=== PATIENT | male | born 1965 | race Caucasian/White ===

== ENCOUNTER 2022-10-14 09:10 | Outpatient (OUT) | payer MEDICARE, SELFPAY ==
--- NOTE | 2022-10-14 09:42 | P.CN_ITS ---
Consult Note: HPI Data of Consult Patient: known to practice within the last 3 years Consult date: 10/14/22 Requesting Physician: LAURA FAYE NP Primary Care Provider: Ishmael Watts MD Consult Narrative Reason for consult: RFA Narrative: Abhishek is here for f/u of RFA right lumbar area done on 09/14/22. He received 100% relief of pain and has increased fx. He is happy with results. No new sensorimotor or bowel or bladder issues. baclofen rx refill given. He denies adverse medication SE. No other concerns. cc:: CC: LAURA FAYE NP Review of Systems ROS Status of ROS 10 or more systems reviewed and unremarkable except as noted in history and below Musculoskeletal Reports: back pain and extremity pain Meds Home Medications and Allergies Home Medications Medication Instructions Recorded Confirmed Type albuterol 90 mcg/actuation aerosol mcg inhalation .Q6 10/14/22 History inhaler baclofen 10 mg tablet 10 mg PO BID 10/14/22 10/14/22 History fluticasone fur. 100 mcg-umeclid 1 inh inhalation DAILY 10/14/22 10/14/22 H istory 62.5 mcg-vilant 25 mcg inhalat.powder (Trelegy Ellipta) furosemide 40 mg tablet 40 mg PO BID 10/14/22 10/14/22 History gabapentin 300 mg capsule 300 mg PO DAILY 10/14/22 10/14/22 History montelukast 10 mg tablet 10 mg PO DAILY 10/14/22 10/14/22 History nabumetone 500 mg tablet 500 mg PO BID 10/14/22 10/14/22 History omeprazole 40 mg capsule,delayed 40 mg PO DAILY 10/14/22 10/14/22 History release oxycodone-acetaminophen 7.5 mg-325 1 tab PO Q6H 10/14/22 10/14/22 History mg tablet spironolactone 100 mg tablet 100 mg PO DAILY 10/14/22 10/14/22 History Allergies Allergy/AdvReac Type Severity Reaction Status Date / Time No Known Drug Allergies Allergy Verified 10/14/22 09:41 Exam Constitutional Documenting provider has reviewed patient's vital signs: yes Common normals: no apparent distress, average body habitus, oriented x3, healthy appearing and well nourished General appearance: cooperative, comfortable, well developed and well hydrated Orientation/consciousness: Yes awake, Yes oriented to person, Yes oriented to place and Yes oriented to time HENMT Common normals: normocephalic, external nose normal and moist oral mucous membranes Head and scalp: normal to inspection Respiratory Common normals: normal respiratory effort, no retractions and no use of accessory muscles Effort & inspection: able to speak in complete sentences Back & Pelvis Common normals: thoracic and lumbar spine normal to inspection and straight leg raise negative bilaterally Lumbar spine/lower back: ROM limited, paraspinal muscle spasm and straight leg raise negative bilaterally Extremity Common normals: normal to inspection, full ROM and normal capillary refill Other: muscle strength 5/5 bilat LE with intact sensation Assessment and Plan Assessment and Plan (1) Lumbar spondylosis: Plan baclofen refill, no other meds prescribed by us f/u in 6 months or sooner if needed
== END 2022-10-14 09:11 ==
PROVIDERS: PCP Family Medicine; Visit Provider Nurse Practitioner
DX: M47.816 Spondylosis without myelopathy or radiculopathy, lumbar region (principal)
CPT/HCPCS: G0463

== ENCOUNTER 2022-10-14 10:01 | Outpatient (OUT) | payer MEDICARE, SELFPAY ==
[2022-10-14 10:53] LABS: Estimated Average Glucose 114 mg/dL; Glycohemoglobin A1C 5.6 % (4.5-6.2)
== END 2022-10-14 10:02 ==
LOC: LAB 10:04
PROVIDERS: PCP Family Medicine
DX: E11.65 Type 2 diabetes mellitus with hyperglycemia (principal)
CPT/HCPCS: 36415; 83036

== ENCOUNTER 2023-05-04 13:45 | Outpatient (OUT) | payer MEDICARE, SELFPAY ==
--- NOTE | 2023-05-04 14:10 | P.CN_ITS ---
Consult Note: HPI Data of Consult Patient: known to practice within the last 3 years Consult date: 10/14/22 Requesting Physician: Danielle Bergeron NP Primary Care Provider: Ishmael Watts MD Consult Narrative Reason for consult: f/u Narrative: Abhishek is here for f/u of RFA right lumbar area done on 09/14/22. He is happy with results. No new sensorimotor or bowel or bladder issues. baclofen rx refill given. He denies adverse medication SE. No other concerns. He continues to have greater than 80% ONGOING RELIEF. cc:: CC: Danielle Bergeron NP Review of Systems ROS Status of ROS 10 or more systems reviewed and unremark able except as noted in history and below Meds Home Medications and Allergies Home Medications Medication Instructions Recorded Confirmed Type albuterol 90 mcg/actuation aerosol mcg inhalation .Q6 10/14/22 History inhaler baclofen 10 mg tablet 10 mg PO BID 10/14/22 10/14/22 History fluticasone fur. 100 mcg-umeclid 1 inh inhalation DAILY 10/14/22 10/14/22 History 62.5 mcg-vilant 25 mcg inhalat.powder (Trelegy Ellipta) furosemide 40 mg tablet 40 mg PO BID 10/14/22 10/14/22 History gabapentin 300 mg capsule 300 mg PO DAILY 10/14/22 10/14/22 History montelukast 10 mg tablet 10 mg PO DAILY 10/14/22 10/14/22 History nabumetone 500 mg tablet 500 mg PO BID 10/14/22 10/14/22 History omeprazole 40 mg capsule,delayed 40 mg PO DAILY 10/14/22 10/14/22 History release oxycodone-acetaminophen 7.5 mg-325 1 tab PO Q6H 10/14/22 10/14/22 History mg tablet spironolactone 100 mg tablet 100 mg PO DAILY 10/14/22 10/14/22 History Allergies Allergy/AdvReac Type Severity Reaction Status Date / Time No Known Drug Allergies Allergy Verified 10/14/22 09:41 Exam Constitutional Documenting provider has reviewed patient's vital signs: yes Common normals: no apparent distress, average body habitus, oriented x3, healthy appearing and well nourished General appearance: cooperative, comfortable, well developed and well hydrated Orientation/consciousness: Yes awake, Yes oriented to person, Yes oriented to place and Yes oriented to time HENMT Common normals: normocephalic, external nose normal and moist oral mucous membranes Head and scalp: normal to inspection Respiratory Common normals: normal respiratory effort, no retractions and no use of accessory muscles Effort & inspection: able to speak in complete sentences Back & Pelvis Common normals: thoracic and lumbar spine normal to inspection and straight leg raise negative bilaterally Lumbar spine/lower back: ROM limited, paraspinal muscle spasm and straight leg raise negative bilaterally Extremity Common normals: normal to inspection, full ROM and normal capillary refill Other: muscle strength 5/5 bilat LE with intact sensation Assessment and Plan Assessment and Plan (1) Lumbar spondylosis: (2) Myofascial pain: Plan continue baclofen 10mg BID repeat right L1,2 L3,4 thermal RFA in the future as needed f/u 6 months, sooner if needed
== END 2023-05-04 13:46 | disposition home or self-care (01) ==
LOC: PM 05-05 12:01
PROVIDERS: PCP Family Medicine; Visit Provider Nurse Practitioner
DX: M47.816 Spondylosis without myelopathy or radiculopathy, lumbar region (principal); M79.18 Myalgia, other site
CPT/HCPCS: G0463

== ENCOUNTER 2023-05-26 12:00 | Outpatient (OUT) | payer MEDICARE, SELFPAY ==
--- OUTSIDE RECORDS SUMMARY | 2023-05-25 09:09 | XMS_ITS | CCD ---
Author Name Unknown Address [address] [facility] [address] [place] [address] Organization [facility] Care Team Providers Care Receiver Dispatcher Name Role Phone SIMONE RUIZ Admitting Unavailable SIMONE RUIZ Attending Unavailable ISHMAEL SIMON Referring Unavailable ISHMAEL SIMON Primary Care Unavailable JEY ELISE Attending Unavailable JEY ELISE Surgeon Unavailable MD Procedure Practitioner Unavailab ISHMAEL Campoverde Primary Care Unavailable ISHMAEL SIMON Referring Unavailable JEY ELISE Admitting Unavailable JEY ELISE Attending Unavailable ISHMAEL SIMON Primary Care Unavailable ISHMAEL SIMON Referring Unavailable JEY ELISE R Admitting Unavailable Ishmael Simon Unavailable Unavailable Unavailable Carissa, Dr. Armstrong Attending Unavaila ble Carissa, Dr. Armstrong Referring Unavaila ble Alfred, Dr. Ishmael Vallejo Primary [facility] Anupamavachavez labjayla Frerer, Dr. Armstrong Attending Unavaila loulou Ferrer, Dr. Armstrong Referring Unavaila ble Alfred, Dr. Ishmael Vallejo Primary Care Anupamavai labjayla Simon, Dr. Ishmael Vallejo Primary Care Anupamavai labjayla Simon, Dr. Ishmael Vallejo Referring Unavai lable Carissa, Dr. Armstrong Attending Unavaila loulou SIMON, DR ISHMAEL Rae Primary Care Unavailable IBARRA ., DR RICKY Bateman Attending Unavailable IBARRA ., DR RICKY Bateman Consulting Unavailable IBARRA ., DR RICKY Bateman Admitting Unavailable LAKSHMIPATHY ., NARENDADRIENNEATH Admitting Anupama vailable LAKSHMIPATHY ., WILDER Attending Anupama vailable LAKSHMIPATHY ., NARSUAD Consulting Anupama vailable ALFRED, DR ISHMAEL Rae Primary Care Unavailable IBARRA ., DR RICKY Bateman Admitting Unavailable IBARRA ., DR RICKY Bateman Attending Unavailable COLMENARES ., TERESO Consulting Unavailable NADERER, DR ISHMAEL Rae Primary Care Unavailable NADERER, DR ISHMAEL Rae Primary Care Unavailable NADERER, DR ISHMAEL Rae Attending Unavailable NADERER, DR ISHMAEL Rae Consulting Unavailable NADERER, DR ISHMAEL Rae Admitting Unavailable NADERER, DR ISHMAEL Rae Primary Care Unavailable IBARRA ., DR RICKY Bateman Attending Unavailable IBARRA ., DR RICKY Bateman Consulting Unavailable IBARRA ., DR RICKY Bateman Admitting Unavailable LAKSHMIPATHY ., NARENDSOSA Attending Anupama vailable LAKSHMIPATHY ., NARENDSOSA Consulting Anupama vailable NADJANEE, DR ISHMAEL Rae Primary Care Unavailable LAKSHMIPATHY ., NARENDSOSA Admitting Anupama vailable IBARRA ., DR RICKY Bateman Consulting Unavailable IBARRA ., DR RICKY Bateman Admitting Unavailable IBARRA ., DR RICKY Bateman Attending Unavailable NADERER, DR ISHMAEL Rae Primary Care Unavailable NASRA, HOANG Consulting Unavailable IBARRA ., DR RICKY Bateman Consulting Unavailable IBARRA ., DR RICKY Bateman Admitting Unavailable IBARRA ., DR RICKY Bateman Attending Unavailable NADERER, DR ISHMAEL Rae Primary Care Unavailable NASRA, HOANG Consulting Unavailable COLMENARES ., TERESO Consulting Unavailable IBARRA ., DR RICKY Bateman Admitting Unavailable IBARRA ., DR RICKY Bateman Attending Unavailable NADERER, DR ISHMAEL Rae Primary Care Unavailable IBARRA ., DR RICKY Bateman Consulting Unavailable IBARRA ., DR RICKY Bateman Admitting Unavailable IBARRA ., DR RICKY Bateman Attending Unavailable NADERER, DR ISHMAEL Rae Primary Care Unavailable LAKSHMIPATHY ., NARENDRANATH Admitting Anupama vailable LAKSHMIPATHY ., NARENDRANATH Attending Anupama vailable JOSE CRUZ LEE Consulting Unavailable NADERER, DR ISHMAEL Rae Primary Care Unavailable LAKSHMIPATHY ., NARENDRANLIZ Consulting Anupama vailable LAKSHMIPATHY ., NARENDRANATH Admitting Anupama vailable LAKSHMIPATHY ., NARENDRANATH Attending Anupama vailable LAKSHMIPATHY ., NARENDSOSA Consulting Anupama vailable ALFRED, DR ISHMAEL Rae Primary Care Unavailable COLMENARES ., TERESO Consulting Unavailable IBARRA ., DR RICKY Bateman Attending Unavailable IBARRA ., DR RICKY Bateman Admitting Unavailable NADERER, DR ISHMAEL Rae Primary Care Unavailable LAKSHMIPATHY ., NARENDSOSA Admitting Anupama vailable LAKSHMIPATHY ., NARSUAD Attending Anupama vailable LAKSHMIPATHY ., WILDER Consulting Anupama vailable NADJANEE, DR ISHMAEL Rae Primary Care Unavailable IBARRA ., DR RICKY Bateman Attending Unavailable IBARRA ., DR RICKY Bateman Admitting Unavailable NADERER, DR ISHMAEL Rae Primary Care Unavailable NADERER, DR ISHMAEL Rae Attending Unavailable NADERER, DR ISHMAEL Rae Consulting Unavailable NADERER, DR ISHMAEL Rae Primary Care Unavailable NADERER, DR ISHMAEL Rae Admitting Unavailable NADERER, DR ISHMAEL Rae Primary Care Unavailable COLMENARES ., TERESO Consulting Unavailable IBARRA ., DR RICKY Bateman Attending Unavailable IBARRA ., DR RICKY Bateman Admitting Unavailable SAMSA ., AMINA Attending Unavailable WEST, DR BATSHEVA Huertas Consulting Unavailable NADERER, DR ISHMAEL Rae Primary Care Unavailable SAMSA ., AMINA Admitting Unavailable SAMSA ., AMINA Consulting Unavailable COLMENARES ., TERESO Admitting Unavailable COLMENARES ., TERESO Attending Unavailable ZIEBTIRSO, DR FLEX Hunt Consulting Unavailable NADERER, DR ISHMAEL Rae Primary Care Unavailable COLMENARES ., TERESO Consulting Unavailable IBARRA ., DR RICKY Bateman Consulting Unavailable IBARRA ., DR RICKY Bateman Admitting Unavailable IBARRA ., DR RICKY Bateman Attending Unavailable NADERER, DR ISHMAEL Rae Primary Care Unavailable NADERER, DR ISHMAEL Rae Primary Care Unavailable PAY ., DR MCINTOSH Admitting Unavailable PAY ., DR MCINTOSH Attending Unavailable PAY ., DR MCINTOSH Consulting Unavailable LAKSHMIPATHY ., WILDER Admitting Anupama vailable LAKSHMIPATHY ., WILDER Attending Anupama vailable NADJANEE, DR ISHMAEL Rae Primary Care Unavailable NADERER, DR ISHMAEL Rae Attending Unavailable NADERER, DR ISHMAEL Rae Admitting Unavailable NADERER, DR ISHMAEL Rae Primary Care Unavailable ARLENE, DR FLEX Hunt Consulting Unavailable NADERER, DR ISHMAEL Rae Consulting Unavailable COLMENARES ., TERESO Consulting Unavailable IBARRA ., DR RICKY Bateman Admitting Unavailable IBARRA ., DR RICKY Bateman Attending Unavailable NADERER, DR ISHMAEL Rae Primary Care Unavailable NADERER, ISHMAEL Parmar Unavailable Medications Completed/Discontinued Medications Medication Drug Class(es) Dates Sig (Normalized) Sig (Original) acetaminophen 325 mg / oxyCODONE hydrochloride 7.5 mg oral tablet (5 sources) Opioid Agonist Start: 03-30-2021 take 1 tablet by mouth four times daily as needed oxyCODONE-Acetamin ophen 7.5-325 MG Oral Tablet TAKE 1 TABLET BY MOUTH FOUR TIMES A DAY NEEDED Quantity: 120 Refills: 0 Ordered: 01-Apr-2021 DO Start : 30-Mar-2021 Active cetirizine hydrochloride 10 mg oral tablet (5 sources) Histamine-1 Receptor Antagonist take 1 tablet by mouth at bedtime Cetirizine HCl - 10 MG Oral Tablet TAKE 1 TABLET AT BEDTIME. Quantity: 0 Refills: 0 Ordered: 28-Jan-2022 DO Active cholecalciferol 0.05 mg oral capsule (4 sources) Vitamin D take 1 capsule by mouth once daily Vitamin D 50 MCG (1999 UT) Oral Capsule TAKE 1 CAPSULE Daily Quantity: 90 Refills: 0 Ordered: 28-Jan-2022 DO Active Dupixent SOPN (1 source) Dupixent SOPN US E DIRECTED Quantity: 0 Refills: 0 Ordered: 14-Jul-2022 DO Active 30 actuat fluticasone furoate 0.1 mg/actuat / umeclidinium 0.0625 mg/actuat / vilanterol 0.025 mg/actuat dry powder inhaler (5 sources) Anticholinergic, Corticosteroid, beta2-Adrenergic Agonist Trelegy Ellipta 100-62.5-25 MCG/INH AEPB USE DIRECTED Quantity: 0 Refills: 0 Ordered: 28-Jan-2022 DO Active furosemide 40 mg oral tablet (5 sources) Loop Diuretic take 1 tablet by mouth twice daily Furosemide 40 MG Oral Tablet Take 1 tablet twice daily Quantity: 180 Refills: 0 Ordered: 28-Jan-2022 DO Active gabapentin 300 mg oral capsule (5 sources) Anti-epileptic Agent take 1 capsule by mouth once daily Gabapentin 300 MG Oral Capsule TAKE 1 CAPSULE Daily Quantity: 0 Refills: 0 Ordered: 28-Jan-2022 DO Active montelukast 10 mg oral tablet (5 sources) Leukotriene Receptor Antagonist take 1 tablet by mouth at bedtime Singulair 10 MG Oral Tablet TAKE 1 TABLET AT BEDTIME. Quantity: 0 Refills: 0 Ordered: 28-Jan-2022 DO Active nabumetone 500 mg oral tablet (5 sources) Nonsteroidal Anti-inflammatory Drug take 1 tablet by mouth once daily Nabumetone 500 MG Oral Tablet TAKE 1 TABLET EVERY 12 HOURS DAILY. Quantity: 0 Refills: 0 Ordered: 28-Jan-2022 DO Active omeprazole 40 mg delayed release oral capsule (5 sources) Proton Pump Inhibitor take 1 capsule by mouth once daily Omeprazole 40 MG Oral Capsule Delayed Release TAKE 1 CAPSULE Daily Quantity: 30 Refills: 0 Ordered: 28-Jan-2022 DO Active Oxygen (5 sources) Oxygen 2l at bedtime Quantity: 0 Refills: 0 Ordered: 28-Jan-2022 DO Active spironolactone 100 mg oral tablet (5 sources) Aldosterone Antagonist take 1 tablet by mouth once daily at breakfast Aldactone 100 MG Oral Tablet TAKE 1 TABLET DAILY WITH BREAKFAST. Quantity: 0 Refills: 0 Ordered: 28-Jan-2022 DO Active triamcinolone acetonide 1 mg/ml topical cream (4 sources) Corticosteroid Triamcinolone Acetonide 0.1 % External Cream USE DIRECTED. Quantity: 0 Refills: 0 Ordered: 28-Jan-2022 DO Active Ventolin HFA AERS (5 sources) Ventolin HFA AER S USE DIRECTED Quantity: 0 Refills: 0 Ordered: 28-Jan-2022 DO Active Problems Active Problems Problem Classification Problem Date Documented Date Episodic/Chronic Abdominal pain (8 sources) Unspecified abdominal pain; Translations: [Right lower quadrant pain] Onset: 06-11-2022 Episodic Chronic obstructive pulmonary disease and bronchiectasis (5 sources) Chronic obstructive lung disease; Translations: [Chronic airway obstruction, not elsewhere classified] Chronic Diabetes mellitus with complications (1 source) Type 2 diabetes mellitus with hyperglycemia; Translations: [TYPE 2 DM W/HYPERGLYCEMIA] Onset: 05-13-2022 Chronic Disorders of lipid metabolism (1 source) Hyperlipidemia, unspecified; Translations: [HYPERLIPIDEMIA UNSPECIFIED] Onset: 05-13-2022 Chronic Essential hypertension (1 source) Essential (primary) hypertension; Translations: [ESSENTIAL PRIMARY HYPERTENSION] Onset: 05-13-2022 Chronic Nutritional deficiencies (4 sources) Vitamin D deficiency, unspecified; Translations: [VITAMIN D DEFICIENCY UNSPECIFIED] Onset: 05-07-2022 Chronic Other connective tissue disease (4 sources) Neuralgia and neuritis, unspecified; Translations: [NEURALGIA AND NEURITIS UNSPECIFIED] Onset: 07-23-2022 Episodic Other hereditary and degenerative nervous system conditions (1 source) Dystonia, unspecified; Translations: [DYSTONIA UNSPECIFIED] Onset: 07-30-2022 Chronic Other lower respiratory disease (5 sources) Dyspnea; Translations: [Other respiratory abnormalities] Episodic Other lower respiratory disease (1 source) Dyspnea, unspecified; Translations: [Dyspnea, unspecified] Onset: 02-15-2022 Episodic Other nervous system disorders (4 sources) Other specified mononeuropathies; Translations: [OTHER SPECIFIED MONONEUROPATHIES] Onset: 07-20-2022 Chronic Other nervous system disorders (1 source) Other chronic pain; Translations: [OTHER CHRONIC PAIN] Onset: 01-22-2022 Chronic Other nutritional; endocrine; and metabolic disorders (5 sources) Obesity; Translations: [Obesity, unspecified] Chronic Other nutritional; endocrine; and metabolic disorders (1 source) Obesity, unspecified; Translations: [OBESITY UNSPECIFIED] Onset: 05-13-2022 Chronic Other screening for suspected conditions (not mental disorders or infectious disease) (8 sources) Cardiovascular stress test abnormal; Translations: [Other nonspecific abnormal results of function study of cardiovascular system] Onset: 02-15-2022 Episodic Spondylosis; intervertebral disc disorders; other back problems (10 sources) Spondylosis without myelopathy or radiculopathy, lumbar region; Translations: [Other intervertebral disc degeneration, lumbar region] Onset: 10-02-2021 Chronic Substance-related disorders (9 sources) Smoker; Translations: [Tobacco use disorder] Onset: 07-15-2022 Chronic Comment on above: 1 pack daily; Unclassified (1 source) LOW BACK PAIN, UNSPECIFIED; Translations: [LOW BACK PAIN, UNSPECIFIED] Onset: 05-13-2022 Unclassified (3 sources) CONTACT W/AND (SUSP) EXPOS COVID-19; Translations: [CONTACT W/AND (SUSP) EXPOS COVID-19] Onset: 12-14-2021 Viral infection (1 source) COVID-19; Translations: [COVID-19] Onset: 04-14-2022 Past or Other Problems Problem Classification Problem Date Documented Da te Episodic/Chronic Cardiac dysrhythmias (10 sources) Sinus bradycardia; Translations: [Other specified cardiac dysrhythmias] Onset: 01-01-2022 Episodic Other aftercare (1 source) Other jail (current) drug therapy; Translations: [OTH SKILLED NURSING CURRENT DRUG THERAPY] Onset: 05-13-2022 Episodic Other connective tissue disease (1 source) Other muscle spasm; Translations: [OTHER MUSCLE SPASM] Onset: 05-13-2022 Episodic Other lower respiratory disease (4 sources) Pleurodynia; Translations: [PLEURODYNIA] Onset: 10-01-2021 Episodic Spondylosis; intervertebral disc disorders; other back problems (3 sources) Muscle spasm of back; Translations: [Intervertebral disc disorders with radiculopathy, lumbar region] Onset: 10-26-2021 Episodic Unclassified (1 source) CONTACT W/AND (SUSP) EXPOS COVID-19; Translations: [CONTACT W/AND (SUSP) EXPOS COVID-19] Onset: 04-12-2022 Results Test Name Value Interpretation Reference Range Facility CT LUNG CANCER SCREENINGon 0 07-15-2022 CT LUNG CANCER SCREENING EXAMINATION: CT LUNG CANCER SCREENING HISTORY: Screening for malignant neoplasm of respiratory tract COMPARISON: 05/01/2021 TECHNIQUE: Axial, Coronal, and Sagittal images were created without the administration of IV contrast material. Dose reduction techniques were achieved by using automated exposure control and/or adjustment of mA and/or kV according to patient size and/or use of iterative reconstruction technique. FINDINGS: LUNGS: Stable scattered solid noncalcified pulmonary nodules measuring up to 7.6 mm the left lower lobe, axial image 97. No new significant pulmonary nodule or mass is identified. Calcified tracheobronchial tree. PLEURA: No mass, effusion, or pneumothorax. VASCULATURE: No abnormality. STEPHANIE: No mass or pathologic adenopathy. MEDIASTINUM: No mass or pathologic adenopathy. CARDIAC: No enlargement, pericardial thickening, or significant calcification. AORTA: No aneurysm or dissection. CHEST WALL: No mass or axillary adenopathy BONES: Multiple remote left posterior rib fractures LIMITED ABDOMEN: No suspicious findings. Limited images of the upper abdomen. OTHER: Negative. IMPRESSION: LUNG SCREENING: Lung-RADS Category 2- Benign Appearance or Behavior. Nodules with a very low likelihood of becoming a clinically active cancer due to size or lack of growth. 2. Continue annual screening with LDCT in 12 months. Electronically authenticated by: BATSHEVA ALVARADO Date: 2022-07-15 12:10 Normal [facility] Office Visit (Cardiology)on 07-14-2022 Follow-up visit Diagnoses/Problems Assessed Sinus bradycardia (427.89) (R00.1) Dyspnea (786.09) (R06.00) Current smoker (305.1) (F17.200) 1 pack daily COPD (chronic obstructive pulmonary disease) (496) (J44.9) Abnormal stress test (794.39) (R94.39) Class 1 obesity with body mass index (BMI) of 32.0 to 32.9 in adult (278.00,V85.32) (E66.9,Z68.32) Orders Class 1 obesity with body mass index (BMI) of 30.0 to 30.9 in adult, Class 1 obesity with body mass index (BMI) of 32.0 to 32.9 in adult Healthy Weight Tips; Status:Complete - Retrospective Authorization; Done: 14Jul2022 Some eating tips that can help you lose weight.; Status:Complete - Retrospective Authorization; Done: 14Jul2022 Sinus bradycardia IO EKG Electrocardiogram- 12 Lead; Status:Complete; Done: 14Jul2022 SocHx: Current smoker Tobacco Use Screening; Status:Complete; Done: 14Jul2022 You need to stop smoking. Though it is not easy, more than half of all adult smokers have quit. We encourage you to write down all the reasons you should quit smoking and set a quit date for yourself. Ask us how we can help. You may also call 3-378-XGEONOW for free resources and assistance.; Status:Complete - Retrospective Authorization; Done: 14Jul2022 Patient Instructions Please bring all medicines, vitamins, and herbal supplements with you when you come to the office. Prescriptions will not be filled unless you are compliant with your follow up appointments or have a follow up appointment scheduled as per instruction of your physician. Refills should be requested at the time of your visit.. Follow up in 1 year. with ekg REtrieve heart cath Chief Complaint LILIANA MICHAELS is being seen for a month follow-up of. History of Present Illness Patient is here for follow-up continue management for recent evaluation for resting asymptomatic sinus bradycardia, hypertension and tobacco use. The patient was referred for a stress test. He was able to walk for more than 7 minutes. He achieved almost 77% of max predicted heart rate. He indicated to me he could have gone longer but his back and right leg was bothering him. Since last time I saw him he denies any cardiac complaint he feels well. Assessment 1. Resting sinus bradycardia his recent stress test showed good exercise tolerance and ability to achieve close to 77% of maximum predicted heart rate. He is completely asymptomatic 2. Recently observed borderline stress test which led to an ischemic evaluation. He underwent cardiac catheterization in [place] which showed no significant obstructive disease 3. Hypertension 4. Tobacco use and COPD 5. Recent accident led to surgery in his right leg/thigh with pain control procedure details lacking. Plan 1. With the patient the results of his recent diagnostic testing and I recommended continue with observant approach 2. Patient was counseled regarding smoking cessation 3. We will try to retrieve his cardiac catheterization 4. I recommended aggressive approach risk factor modification 5. Follow-up in 1 year with an EKG or earlier if the need arise Surgical History Problems History of Arm surgery History of Colonoscopy History of Cyst excision History of Hernia repair History of Hip replacement History of Urologic surgery Current Meds Medication NameInstruction Aldactone 100 MG Oral TabletTAKE 1 TABLET DAILY WITH BREAKFAST. Cetirizine HCl - 10 MG Oral TabletTAKE 1 TABLET AT BEDTIME. Dupixent SOPNUSE DIRECTED Furosemide 40 MG Oral TabletTake 1 tablet twice daily Gabapentin 300 MG Oral CapsuleTAKE 1 CAPSULE Daily Nabumetone 500 MG Oral TabletTAKE 1 TABLET EVERY 12 HOURS DAILY. Omeprazole 40 MG Oral Capsule Delayed ReleaseTAKE 1 CAPSULE Daily oxyCODONE-Acetaminoph en 7.5-325 MG Oral TabletTAKE 1 TABLET BY MOUTH FOUR TIMES A DAY NEEDED Pqdtgl2s at bedtime Singulair 10 MG Oral TabletTAKE 1 TABLET AT BEDTIME. Trelegy Ellipta 100-62.5-25 MCG/INH AEPBUSE DIRECTED Ventolin HFA AERSUSE DIRECTED Patient did not bring medication list or bottles. Updated verbally with patient Allergies Medication No Known Drug Allergies Recorded By: Janina Cortez; 01/28/2022 9:32:54 AM Social History Problems Current smoker (305.1) (F17.200) 1 pack daily No alcohol use No caffeine use No illicit drug use Review of Systems Constitutional: not feeling tired. Cardiovascular: no intermittent leg claudication and as noted in HPI. Respiratory: shortness of breath, but no cough. Gastrointestinal: no change in bowel habits and no blood in stools. Integumentary: no skin rashes. Neurological: no seizures and no frequent falls. All other systems have been reviewed and are negative for complaint. Vitals Vital Signs Recorded: [id number] 10:57AM Heart Rate34, L Radial [id number], LUE, Sitting Umewqiala97, LUE, Sitting Height5 ft 4 in [id number] lb BMI Eftirvyflp48.96 kg/m2 BSA Calculated1.92 Tobacco Usea) Yes Patient encouraged to st (more content not included)... Normal [facility] Tobacco Screening.on 023 Adult depression screening assessment No [facility] [employer] DO Work Phone: Fall risk assessment a) No falls within the last year [facility] [employer] DO Work Phone: Tobacco use status [facility] a) Yes [facility] [employer] [address] DO Work Phone: Tobacco Screening. Yes [facility] [employer] DO Work Phone: CT ABD/PELV W CONon 06-11-19 CT ABD/PELV W CON EXAMINATION: CT ABD/PELV W CON HISTORY: Right lower quadrant pain ; right groin pain for several weeks; history of right inguinal hernia COMPARISON: CT abdomen pelvis 05/30/2020 TECHNIQUE: Axial, Coronal, and Sagittal images were obtained without and/or with IV contrast as indicated by examination type. Dose reduction techniques were achieved by using automated exposure control and/or adjustment of mA and/or kV according to patient size and/or use of iterative reconstruction technique. FINDINGS: LUNG BASES: No visible pulmonary or pleural disease. LIVER: No enlargement, atrophy, suspicious density, or significant focal lesion. BILIARY: No dilatation or calcification. PANCREAS: No lesion, fluid collection, or abnormal duct dilatation. SPLEEN: No enlargement or focal lesion. ADRENALS: No mass or enlargement. KIDNEYS: Stable, benign-appearing left renal cyst. No mass, obstruction, or calcification. BOWEL/MESENTERY: Short segment of small bowel-small bowel intussusception within lateral left mid abdomen; usually transitory. No inflammatory changes or bowel obstruction. No visible mass, obstruction, or bowel wall thickening. Normal appendix. AORTA/VASCULAR: No aneurysm or dissection. RETROPERITONEUM: No mass or adenopathy. LYMPH NODES: No adenopathy. URINARY BLADDER: No visible focal wall thickening, lesion, or calculus. PELVIC ORGANS: Prior radioactive seeding of the prostate. ABDOMINAL WALL: Small fat filled umbilical hernia without strangulation. Small fat filled left inguinal hernia without strangulation. BONES: Multilevel marked degenerative disc disease of lumbar spine. OTHER: Negative. IMPRESSION: 1.No acute or specific findings to account for patient's right lower quadrant/groin symptoms. 2.Chronic changes as detailed above. Electronically authenticated by: FLEX JACOBS Date: 2022-06-11 10:06 Normal [facility] CBC AUTO DIFFon 05-07-2022 BASO # 0.1 103/ul Normal 0.0-0.1 [facility] Comment on above: Performed By: #### C BC #### [facility] [address] [address] [address] Britt Mendoza Basophils/100 WBC (Bld) 1.6 % Normal 0.2-2.0 [facility] Comment on above: Performed By: #### C BC #### [facility] [address] [address] [address] Britt Mendoza EO # 0.2 103/ul Normal 0.0-0.7 [facility] Comment on above: Performed By: #### C BC #### [facility] [address] [address] [address] Britt Mendoza Eosinophils/100 WBC (Bld) 3.0 % Normal 0.9-7.0 [facility] Comment on above: Performed By: #### C BC #### [facility] [address] [address] [address] Britt Mendoza Erythrocyte distribution width (RBC) [Ratio] 12.4 % Normal 11.0-15.0 [facility] Comment on above: Performed By: #### C BC #### [facility] [address] [address] [address] Britt Mendoza Hematocrit (Bld) [Volume fraction] 43.2 % Normal 42.0-54.0 [facility] Comment on above: Performed By: #### C BC #### [facility] [address] [address] [address] Britt Mendoza Hemoglobin (Bld) [Mass/Vol] 14.7 g/dL Normal 14.0-18.0 [facility] Comment on above: Performed By: #### C BC #### [facility] [address] [address] [address] Britt Mendoza IG # 0.11 10e3/ul Critically high 0.00-0.03 [facility] Comment on above: Performed By: #### C BC #### [facility] [address] [address] [address] Britt Mendoza IG % 1.4 % Critically high 0.0-0.5 [facility] Comment on above: Performed By: #### C BC #### [facility] [address] [place] [address] Dr. Britt Mendoza LYMPH # 1.7 103/ul Normal 1.2-3.8 [facility] Comment on above: Performed By: #### C BC #### [facility] Laboratory [address] [place] [address] Dr. Britt Mendoza Lymphocytes/100 WBC (Bld) 21.6 % Normal 20.5-60.0 [facility] Comment on above: Performed By: #### C BC #### [facility] Laboratory [address] [place] [address] Dr. Britt Mendoza MANUAL DIFF REQ NO Normal [facility] Comment on above: Performed By: #### C BC #### [facility] Laboratory [address] [place] [address] Dr. Britt Mendoza MCH (RBC) [Entitic mass] 31.2 pg Normal 25.9-34.0 [facility] Comment on above: Performed By: #### C BC #### [facility] Laboratory [address] [place] [address] Dr. Britt Mendoza MCHC (RBC) [Mass/Vol] 34.0 g/dL Normal 29.9-35.2 [facility] Comment on above: Performed By: #### C BC #### [facility] Laboratory [address] [place] [address] Dr. Britt Mendoza MCV (RBC) [Entitic vol] 91.7 fL Normal 80.0-94.0 [facility] Comment on above: Performed By: #### C BC #### [facility] Laboratory [address] [address] [address] Britt Mendoza MONO # 0.5 103/ul Normal 0.3-0.8 [facility] Comment on above: Performed By: #### C BC #### [facility] Laboratory [address] [address] [address] Britt Mendoza Monocytes/100 WBC (Bld) 6.8 % Normal 1.7-12.0 [facility] Comment on above: Performed By: #### C BC #### [facility] Laboratory [address] [place] [address] Dr. Britt Mendoza NEUT # 5.0 103/ul Normal 1.4-6.5 [facility] Comment on above: Performed By: #### C BC #### [facility] Laboratory [address] [place] [address] Dr. Britt Mendoza Neutrophils/100 WBC (Bld) 65.6 % Normal 43.0-75.0 [facility] Comment on above: Performed By: #### C BC #### [facility] Laboratory [address] [place] [address] Dr. Britt Mendoza Platelet mean volume (Bld) [Entitic vol] 9.7 fL Normal 9.5-13.5 [facility] Comment on above: Performed By: #### C BC #### [facility] Laboratory [address] [place] [address] Dr. Britt Mendoza PLT 244 103/ul Normal 150-450 [facility] Comment on above: Performed By: #### C BC #### [facility] Laboratory [address] [place] [address] Dr. Britt Mendoza RBC 4.71 106/ul Normal 4.70-6.10 [facility] Comment on above: Performed By: #### C BC #### [facility] Laboratory [address] [place] [address] Dr. Britt Mendoza WBC 7.6 103/ul Normal 4.0-11.0 [facility] Comment on above: Performed By: #### C BC #### [facility] Laboratory [address] [place], [place] [address] Dr. Britt Mendoza GLYCOHEMOGLOBIN A1Con 2021 ADA RECOMMENDATION SEE BELOW Normal [facility] Comment on above: Result Comment: ADA RECOMMENDED LIMIT 4.0 - 6.0 ADA THERAPEUTIC TARGET < 7.0 ACTION SUGGESTED > 7.0 Performed By: #### A 1C ####[facility] [address] [id number]. Britt Mendoza Glucose [Mass/Vol] 117 mg/dL Normal [facility] Comment on above: Performed By: #### A 1C ####[facility] [address] [id number] Mendoza HbA1c (Bld) [Mass fraction] 5.7 % Normal 4.5-6.2 [facility] Comment on above: Performed By: #### A 1C ####[facility] [address] [address]DrAtiya Mendoza LIPID PROFILEon 05-07-2022 CHOL-HDL RATIO NORM SEE BELOW Normal [facility] Comment on above: Result Comment: 3.3 - 4.4 LOW RISK 4.4 - 7.1 AVERAGE RISK 7.1 - 11.0 MODERATE RISK >11.0 HIGH RISK Performed By: #### B MP, LIVER, LIPID, TSH ####[facility] [address] [id number]. Britt Mendoza Cholesterol [Mass/Vol] 235 mg/dL Critically high <=200 [facility] Comment on above: Performed By: #### B MP, LIVER, LIPID, TSH ####[facility] [address] [id number]. Britt Mendoza Cholesterol in HDL [Mass/Vol] 40 mg/dL Normal 40-60 [facility] Comment on above: Performed By: #### B MP, LIVER, LIPID, TSH ####[facility] [address] [id number]. Britt Mendoza Cholesterol in LDL [Mass/Vol] 156.8 mg/dL Normal [facility] Comment on above: Performed By: #### B MP, LIVER, LIPID, TSH ####[facility] [address] [id number]. Britt Mendoza Cholesterol.total/C holesterol in HDL [Mass ratio] 5.9 {ratio} Normal [facility] Comment on above: Performed By: #### B MP, LIVER, LIPID, TSH ####[facility] [address] [id number]. Britt Mendoza HDL NORMAL > or = 60 mg/dl - LO W CARDIOVASCULAR RISK <40 mg/dl - HIGH CARDIOVASCULAR RISK Normal [facility] Comment on above: Performed By: #### B MP, LIVER, LIPID, TSH ####[facility] [address] [address]Dr. Britt Menodza LDL CALC NORMAL SEE BELOW Normal [facility] Comment on above: Result Comment: <100 mg/dl OPTIMAL 100 - 129 mg/dl NEAR OR ABOVE OPTIMAL 130 - 159 mg/dl BORDERLINE HIGH 160 - 189 mg/dl HIGH >190 mg/dl VERY HIGH Performed By: #### B MP, LIVER, LIPID, TSH ####[facility] [address] [address]Dr. Britt Mendoza Triglyceride [Mass/Vol] 191 mg/dL Critically high <=150 [facility] Comment on above: Performed By: #### B MP, LIVER, LIPID, TSH ####[facility] [address] [id number]. Britt Mendoza VLDL CALC 38.2 mg/dL Normal [facility] Comment on above: Performed By: #### B MP, LIVER, LIPID, TSH ####[facility] [address] [id number]. Britt Mendoza LIVER PROFILEon 05-07-2022 Albumin [Mass/Vol] 3.6 g/dL Normal 3.4-5.0 [facility] Comment on above: Performed By: #### B MP, LIVER, LIPID, TSH ####[facility] [address] [address]Dr. Britt Mendoza Albumin/Globulin [Mass ratio] 1.1 {ratio} Normal [facility] Comment on above: Performed By: #### B MP, LIVER, LIPID, TSH ####[facility] [address] [place] [address]Dr. Britt Mendoza ALP [Catalytic activity/Vol] 84 U/L Normal 46-116 [facility] Comment on above: Performed By: #### B MP, LIVER, LIPID, TSH ####[facility] [address] [address]Dr. Britt Mendoza ALT [Catalytic activity/Vol] 34 U/L Normal 16-63 [facility] Comment on above: Performed By: #### B MP, LIVER, LIPID, TSH ####[facility] [address] [address]Dr. Britt Mendoza AST [Catalytic activity/Vol] 21 U/L Normal 15-37 [facility] Comment on above: Performed By: #### B MP, LIVER, LIPID, TSH ####[facility] [address] [address]Dr. Britt Mendoza BILI, CONJUGATED 0.1 mg/dL Normal 0.0-0.2 [facility] Comment on above: Performed By: #### B MP, LIVER, LIPID, TSH ####[facility] [address] [place], [place] [address]Dr. Britt Mendoza Bilirubin [Mass/Vol] 0.4 mg/dL Normal 0.2-1.0 [facility] Comment on above: Performed By: #### B MP, LIVER, LIPID, TSH ####[facility] [address] [place], [place] [address]Dr. Britt Mendoza Globulin (S) [Mass/Vol] 3.4 g/dL Normal [facility] Comment on above: Performed By: #### B MP, LIVER, LIPID, TSH ####[facility] [address] [address]Dr. Britt Mendoza Protein [Mass/Vol] 7.0 g/dL Normal 6.4-8.2 [facility] Comment on above: Performed By: #### B MP, LIVER, LIPID, TSH ####[facility] [address] [place], [place] [address]Dr. Britt Mendoza PROF CHEM 8 (BAS METB)on Anion gap [Moles/Vol] 13.8 mmol/L Normal [facility] Comment on above: Result Comment: Prev iously reported as: -2.3 On 05/07/2022 13:50 By DM9 Performed By: #### B MP, LIVER, LIPID, TSH #### [facility] Laboratory [address] [address] [address] Britt Mendoza Calcium [Mass/Vol] 9.2 mg/dL Normal 8.5-10.1 [facility] Comment on above: Performed By: #### B MP, LIVER, LIPID, TSH #### [facility] Laboratory [address] [place] [address] Dr. Britt Mendoza Chloride [Moles/Vol] 99 mmol/L Normal 98-107 [facility] Comment on above: Result Comment: Prev iously reported as: 106 On 05/07/2022 13:50 By DM9 Performed By: #### B MP, LIVER, LIPID, TSH #### [facility] Laboratory [address] [place] [address] Dr. Britt Mendoza CO2 [Moles/Vol] 27.3 mmol/L Normal 21.0-32.0 [facility] Comment on above: Result Comment: Prev iously reported as: 29.2 On 05/07/2022 13:50 By DM9 Performed By: #### B MP, LIVER, LIPID, TSH #### [facility] Laboratory [address] [place] [address] Dr. Britt Mendoza Creatinine [Mass/Vol] 1.12 mg/dL Normal 0.70-1.30 [facility] Comment on above: Performed By: #### B MP, LIVER, LIPID, TSH #### [facility] Laboratory [address] [place] [address] Dr. Britt Mendoza EGFR-AF GIBRALTARIAN >60 Normal >=60 [facility] Comment on above: Performed By: #### B MP, LIVER, LIPID, TSH #### [facility] Laboratory [address] [place] [address] Dr. Britt Mendoza EGFR-NON AF GIBRALTARIAN >60 Normal >=60 [facility] Comment on above: Performed By: #### B MP, LIVER, LIPID, TSH #### [facility] Laboratory [address] [address] [address] Britt Mendoza Glucose [Mass/Vol] 108 mg/dL Critically high 74-106 [facility] Comment on above: Performed By: #### B MP, LIVER, LIPID, TSH #### [facility] Laboratory [address] [place] [address] Dr. Britt Mendoza Potassium [Moles/Vol] 4.1 mmol/L Normal 3.5-5.1 [facility] Comment on above: Result Comment: Prev iously reported as: 3.9 On 05/07/2022 13:50 By DM9 Performed By: #### B MP, LIVER, LIPID, TSH #### [facility] Laboratory [address] [place] [address] Dr. Britt Mendoza Sodium [Moles/Vol] 136 mmol/L Normal 136-145 [facility] Comment on above: Result Comment: Prev iously reported as: 129 On 05/07/2022 13:50 By DM9 Performed By: #### B MP, LIVER, LIPID, TSH #### [facility] Laboratory [address] [place] [address] Dr. Britt Mendoza Urea nitrogen [Mass/Vol] 26.0 mg/dL Critically high 7.0-18.0 [facility] Comment on above: Performed By: #### B MP, LIVER, LIPID, TSH #### [facility] Laboratory [address] [place] [address] Dr. Britt Mendoza Urea nitrogen/Creatinine [Mass ratio] 23.2 mg/mg Normal [facility] Comment on above: Performed By: #### B MP, LIVER, LIPID, TSH #### [facility] Laboratory [address] [place] [address] Dr. Britt Mendoza TSHon 05-07-2022 TSH 0.828 uIU/mL Normal 0.358-3.740 [facility] Comment on above: Performed By: #### B MP, LIVER, LIPID, TSH ####[facility] [address] [place], [place] [address]UjDr. Britt Mendoza VITAMIN D 25 OHon 05-07-2022 VIT D 25-OH 45.6 ng/mL Normal [facility] Comment on above: Performed By: #### V BRENDAN, PSASC #### [facility] Laboratory [address] [place], [place] [address] Dr. Britt Mendoza VIT D RANGES SEE BELOW Normal [facility] Comment on above: Result Comment: <20 ng/mL Vit D deficient 20 - <30 ng/mL Vit D insufficient 30 - 100 ng/mL Vit D sufficient >100 ng/mL Potential Toxicity Performed By: #### V BRENDAN, PSASC #### [facility] Laboratory [address] [place], [place] [address] Dr. Britt Mendoza Covid-19 PCR (CVDTB)on SARS-CoV-2 (COVID-19) RNA KATT+probe Ql (Unsp spec) Detected Critically abnormal NOT DETECTED [facility] Comment on above: Result Comment: This test is not yet approved or cleared by the [place] FDA. When there are no FDA-approved or cleared tests available, and other criteria are met, FDA can make tests available under an emergency access mechanism called an Emergency Use Authorization (EUA). The EUA for this test is supported by the Catering Attendant of Health and Human Service's declaration that circumstances exist to justify the emergency use of in vitro diagnostics for the detection and/or diagnosis of the virus that causes COVID-19. This EUA will remain in effect for the duration of the COVID-19 declaration justifying emergency of IVDs, unless it is terminated or revoked by the FDA (after which the test may no longer be used). Performed By: #### C VDTBH ####[facility] [address] [place], [place] [address]GgDr. Britt Mendoza Cardiac Stress Teston 2021 Cardiac Stress Test [address], [address], [place] [address] Exercise Stress Test Patient Name: LILIANA MICHAELS JR. Ordering Physician: [id number] Valentino Ferrer MD Study Date: 02/15/2022 Reading Physician: [id number] Valentino Ferrer MD MRN/PID: [id number] Supervising Physician: [id number] Rivera MD Accession/Order#: [id number] Referring Physician: VALENTINO FERRER Date of : 1965 PCP: Ishmael Simon Gender: M Fellow: Height: 162.56 cm Nurse: Yunior Bhatti RN Weight: 81.65 kg Head Of Integrated Media: SAEID BSA: 1.87 m2 Technologist: BMI: 30.90 kg/m2 Additional Staff: Age: 56 years cc report to: Patient Location: cc report to: [id number] Valentino Ferrer MD Study Type: Cardiac Stress Test Diagnosis/ICD: R94.31-Abnormal electrocardiogram [ECG] [EKG]; R00.1-Bradycardia, unspecified; R06.00-Dyspnea, unspecified Indication: Dyspnea Procedure/CPT: Stress Test Interpretation-[id number]; Stress Test Supervision-[id number] Falls Risk: Low: Patient has low risk for sustaining a fall; environmental safety interventions in place. Study Details: Correct procedure and correct patient verified verbally. Patient History: Allergies: None. Patient Performance: The peak heart rate achieved was 125 bpm, which was 77 % of the age predicted target heart rate of 162 bpm. The resting blood pressure was 120/68 mmHg with a heart rate of 44 bpm. The standing blood pressure was 120/68 mmHg with a heart rate of 44 bpm. The patient's functional capacity was average. The patient developed leg fatigue during the stress exam. The symptoms resolved with rest. The blood pressure response was normal. The test was terminated due to: leg fatigue and musculoskeletal weakness. Sinus tachycardia with nonspecific ST-T changes. Baseline ECG: Resting ECG showed sinus bradycardia. Sinus bradycardia with nonspecific ST-T changes. Stress Stage Data: + +-- -+------+-------+ HR Sys BP Cornelius BP + +-- -+------+-------+ Baseline Resting 44 120 68 + +-- -+------+-------+ Baseline Standing 44 120 68 + +-- -+------+-------+ Stage I 80 142 76 + +-- -+------+-------+ Stage II 96 168 78 + +-- -+------+-------+ Stage III 125 174 82 + +-- -+------+-------+ Recovery ECG: The heart rate recovery was normal. + +---+--- ---+-------+ HR Sys BP Cornelius BP + +---+--- ---+-------+ Recovery I 125 176 80 + +---+--- ---+-------+ Recovery II 104 172 76 + +---+--- ---+-------+ Recovery III 55 146 72 + +---+--- ---+-------+ Recovery IV 56 118 68 + +---+--- ---+-------+ Summary: 1. Submaximal graded exercise stress test without diagnostic ST-T changes for ischemia. 2. Patient failed to achieve 85% of maximum predicted heart rate. 3. Appropriate blood pressure response to exercise with slightly blunted heart rate response to exercise. 4. Fair exercise tolerance. 5. Normal heart recovery. 6. This is inconclusive stress test due to inability to achieve 85% of maximum predicted heart rate. 7. An element of chronotropic incompetency noted. [id number] Valentino Ferrer MD Electronically signed on 02/16/2022 at 2:52:20 PM Final Normal [facility] Cardiac Stress Test Please click on the link to view the study images [facility] Work Phone: Cardiac Stress Test MP-No rth [facility] 250 DO Work Phone: Office Visit (Cardiology)on 01-28-2022 Follow-up visit Diagnoses/Problems Assessed Sinus bradycardia (427.89) (R00.1) Abnormal stress test (794.39) (R94.39) COPD (chronic obstructive pulmonary disease) (496) (J44.9) Class 1 obesity with body mass index (BMI) of 30.0 to 30.9 in adult (278.00,V85.30) (E66.9,Z68.30) Current smoker (305.1) (F17.200) 1 pack daily Dyspnea (786.09) (R06.00) Orders Abnormal stress test, Dyspnea, Sinus bradycardia Cardiac Stress Test; Status:Hold For - Scheduling,Retrospect caesar Authorization; Requested for:28Jan2022; Class 1 obesity with body mass index (BMI) of 30.0 to 30.9 in adult Healthy Weight Tips; Status:Complete - Retrospective Authorization; Done: 28Jan2022 Some eating tips that can help you lose weight.; Status:Complete - Retrospective Authorization; Done: 28Jan2022 Sinus bradycardia You need to stop smoking. Though it is not easy, more than half of all adult smokers have quit. We encourage you to write down all the reasons you should quit smoking and set a quit date for yourself. Ask us how we can help. You may also call 7-055-QMMVNOW for free resources and assistance.; Status:Complete - Retrospective Authorization; Done: [id number] SocHx: Current smoker Continue with our present treatment plan.; Status:Complete - Retrospective Authorization; Done: [id number] Tobacco Use Screening; Status:Complete; Done: [id number] Patient Instructions Please bring all medicines, vitamins, and herbal supplements with you when you come to the office. Prescriptions will not be filled unless you are compliant with your follow up appointments or have a follow up appointment scheduled as per instruction of your physician. Refills should be requested at the time of your visit. Routine Stress test for bradycardia Follow up in 6 months Retrieve heart cath from Chief Complaint LILIANA MICHAELS is being seen for npv/ jenelle. History of Present Illness Patient is here for cardiovascular evaluation for second opinion in regard to documents resting sinus bradycardia. The patient is 56-year-old with history of tobacco use and COPD was evaluated recently due to shortness of breath and his stress test showed questionable inferior wall ischemia. This led to a cardiac evaluation in [place] and its not clear to me whether the patient had CT angio or cardiac catheterization which apparently did not show significant obstructive disease and medical therapy was recommended. The patient reported that he has been told that he had resting sinus bradycardia for many years even in his 20s. Previous Holter monitor done and documented resting physiologic sinus bradycardia. However his bradycardia noted to be slightly worse recently. Repeat Holter monitor showed resting sinus bradycardia average heart rate of 48 beats per minutes. His heart rate dipped to during the night to the upper 20s. There was no long pauses or symptoms reported by the patient. Few PACs and PVCs reported. Patient report mild shortness of breath related to his chronic obstructive lung disease and tobacco use. He does describe history of hypertension. He denies any lightheadedness, dizziness or syncope. He reported he had a limited exercise tolerance due to his recent injury that required surgery to his right leg. However he reported this has improved. During his Holter monitor his maximum heart rate was 112 beats per minutes. Assessment 1. Resting sinus bradycardia appears to be physiologic. Patient has that documented for many years. No obvious symptoms can be correlated with his bradycardia. 2. Recently observed borderline stress test which led to an ischemic evaluation. Jose Antonio unclear if it was CTA angio or cardiac catheterization with but the patient was told no significant obstructive disease 3. Hypertension 4. Tobacco use and COPD 5. Recent accident led to surgery in his right leg/thigh with pain control procedure details lacking. Plan 1. At this point of time I would continue to recommend observant approach considering lack of convincing symptoms, no finding on the Holter monitor that meet the criteria for pacemaker implantation and based on his functional status 2. I recommended to the patient to have a GXT to assess for chronotropic competency 3. Patient was counseled regarding smoking cessation 4. We will try to retrieve his recent ischemic evaluation 5 follow-up in 6 Surgical History Problems History of Arm surgery History of Colonoscopy History of Cyst excision History of Hernia repair History of Hip replacement History of Urologic surgery Current Meds Medication NameInstruction Aldactone 100 MG Oral TabletTAKE 1 TABLET DAILY WITH BREAKFAST. Cetirizine HCl - 10 MG Oral TabletTAKE 1 TABLET AT BEDTIME. Furosemide 40 MG Oral TabletTake 1 tablet twice daily Gabapentin 300 MG Oral CapsuleTAKE 1 CAPSULE Daily Nabumetone 500 MG Oral TabletTAKE 1 TABLET EVERY 12 HOURS DAILY. Omeprazole 40 MG Oral Capsule Delayed ReleaseTAKE 1 CAPSULE Daily Ebcrnb5c at bedtime Sin (more content not included)... Normal [employer] Tobacco Screening.on Adult depression screening assessment No -[facility] [employer] 600 DO Work Phone: Fall risk assessment a) No falls within the last year [facility] [employer] 600 DO Work Phone: Tobacco use status [facility] a) Yes [facility] [employer] 600 DO Work Phone: Tobacco Screening. Yes [facility] [employer] 600 DO Work Phone: Covid-19 PCR ([facility])on SARS-CoV-2 (COVID-19) RNA KATT+probe Ql (Unsp spec) Not detected Normal NOT DETECTED [facility] Comment on above: Result Comment: This test is not yet approved or cleared by the [place] FDA. When there are no FDA-approved or cleared tests available, and other criteria are met, FDA can make tests available under an emergency access mechanism called an Emergency Use Authorization (EUA). The EUA for this test is supported by the Catering Attendant of Health and Human Service's (HHS's) declaration that circumstances exist to justify the emergency use of in vitro diagnostics for the detection and/or diagnosis of the virus that causes COVID-19. This EUA will remain in effect (meaning this test can be used) for the duration of the COVID-19 declaration justifying emergency of IVDs, unless it is terminated or revoked by FDA (after which the test may no longer be used). When diagnostic testing is negative, the possibility of a false negative should be considered in the context of a patient's recent exposures and the presence of clinical signs and symptoms consistent with SARS-CoV-2. Performed By: #### C [facility] #### [facility] Laboratory [address] [place], [place] [address] Dr. Britt Mendoza Covid-19 PCR ([facility])on 11-07 SARS-CoV-2 (COVID-19) RNA KATT+probe Ql (Unsp spec) Not detected Normal NOT DETECTED [facility] Comment on above: Result Comment: This test is not yet approved or cleared by the [place] FDA. When there are no FDA-approved or cleared tests available, and other criteria are met, FDA can make tests available under an emergency access mechanism called an Emergency Use Authorization (EUA). The EUA for this test is supported by the [place] of Health and Human Service's (HHS's) declaration that circumstances exist to justify the emergency use of in vitro diagnostics for the detection and/or diagnosis of the virus that causes COVID-19. This EUA will remain in effect (meaning this test can be used) for the duration of the COVID-19 declaration justifying emergency of IVDs, unless it is terminated or revoked by FDA (after which the test may no longer be used). When diagnostic testing is negative, the possibility of a false negative should be considered in the context of a patient's recent exposures and the presence of clinical signs and symptoms consistent with SARS-CoV-2. Performed By: #### [facility] ####[facility] [address] [place], [place] [address]IjDr. Britt Mendoza XR CHEST 2 Von 10-01-2021 XR CHEST 2 V EXAMINATION: XR CHES T 2 V HISTORY: Rib pain ; left lower, anterior-lateral rib pain since running into a door 2 weeks ago COMPARISON: XR ribs left with PA chest 09/09/2020, CT chest 05/01/2021 FINDINGS: LUNGS: No significant pulmonary parenchymal abnormalities. VASCULATURE: No increased pulmonary vasculature. PLEURA: No pneumothorax, effusion, or pleural thickening. CARDIAC: No cardiomegaly or cardiac silhouette abnormality. MEDIASTINUM: No visible mass or adenopathy. BONES: Incomplete osseous healing of an old left lateral sixth rib fracture with evidence of callus formation at the margins. OTHER: Negative. IMPRESSION: 1. No acute cardiopulmonary process. 2. No acute bone abnormality. 3. Chronic, incomplete osseous healing of the left sixth rib fracture first seen one year ago on 09/09/2020. Appearance on the 05/01/2021 CT chest study favors incomplete osseous healing rather than a pathologic fracture, but follow-up CT imaging of the chest in 3-6 months should be considered to document continued stability versus healing versus pathologic fracture. Electronically authenticated by: FLEX JACOBS Date: 2021-10-01 09:30 Normal [facility] Ambulatory Clinical Summaryo n 03-05-2021 Ambulatory Clinical Summary {[id number] Normal [facility] Historical Records Officeon 03-05-2021 Historical Records Office [id number] Normal [facility] Patient Educationon 03-05-20 21 Patient Education Urology Erectile Dysfunction Erectile dysfunction (ED) is the inability to get or keep an erection in order to have sexual intercourse. Erectile dysfunction may include: ? Inability to get an erection. ? Lack of enough hardness of the erection to allow penetration. ? Loss of the erection before sex is finished. What are the causes? This condition may be caused by: ? Certain medicines, such as: ? Pain relievers. ? Antihistamines. ? Antidepressants. ? Blood pressure medicines. ? Water pills (diuretics). ? Ulcer medicines. ? Muscle relaxants. ? Drugs. ? Excessive drinking. ? Psychological causes, such as: ? Anxiety. ? Depression. ? Sadness. ? Exhaustion. ? Performance fear. ? Stress. ? Physical causes, such as: ? Artery problems. This may include diabetes, smoking, liver disease, or atherosclerosis. ? High blood pressure. ? Hormonal problems, such as low testosterone. ? Obesity. ? Nerve problems. This may include back or pelvic injuries, diabetes mellitus, multiple sclerosis, or Parkinson disease. What are the signs or symptoms? Symptoms of this condition include: ? Inability to get an erection. ? Lack of enough hardness of the erection to allow penetration. ? Loss of the erection before sex is finished. ? Normal erections at some times, but with frequent unsatisfactory episodes. ? Low sexual satisfaction in either partner due to erection problems. ? A curved penis occurring with erection. The curve may cause pain or the penis may be too curved to allow for intercourse. ? Never having nighttime erections. How is this diagnosed? This condition is often diagnosed by: ? Performing a physical exam to find other diseases or specific problems with the penis. ? Asking you detailed questions about the problem. ? Performing blood tests to check for diabetes mellitus or to measure hormone levels. ? Performing other tests to check for underlying health conditions. ? Performing an ultrasound exam to check for scarring. ? Performing a test to check blood flow to the penis. ? Doing a sleep study at home to measure nighttime erections. How is this treated? This condition may be treated by: ? Medicine taken by mouth to help you achieve an erection (oral medicine). ? Hormone replacement therapy to replace low testosterone levels. ? Medicine that is injected into the penis. Your health care provider may instruct you how to give yourself these injections at home. ? Vacuum pump. This is a pump with a ring on it. The pump and ring are placed on the penis and used to create pressure that helps the penis become erect. ? Penile implant surgery. In this procedure, you may receive: ? An inflatable implant. This consists of cylinders, a pump, and a reservoir. The cylinders can be inflated with a fluid that helps to create an erection, and they can be deflated after intercourse. ? A semi-rigid implant. This consists of two silicone rubber rods. The rods provide some rigidity. They are also flexible, so the penis can both curve downward in its normal position and become straight for sexual intercourse. ? Blood vessel surgery, to improve blood flow to the penis. During this procedure, a blood vessel from a different part of the body is placed into the penis to allow blood to flow around (bypass) damaged or blocked blood vessels. ? Lifestyle changes, such as exercising more, losing weight, and quitting smoking. Follow these instructions at home: Medicines ? Take [id number] and prescription medicines only as told by your health care provider. Do not increase the dosage without first discussing it with your health care provider. ? If you are using self-injections, perform injections as directed by your health care provider. Make sure to avoid any veins that are on the surface of the penis. After giving an injection, apply pressure to the injection site for 5 minutes. General instructions ? Exercise regularly, as directed by your health care provider. Work with your health care provider to lose weight, if needed. ? Do not use any products that contain nicotine or tobacco, such as cigarettes and e-cigarettes. If you need help quitting, ask your health care provider. ? Before using a vacuum pump, read the instructions that come with the pump and discuss any questions with your health care provider. ? Keep all follow-up visits as told by your health care provider. This is important. Contact a health care provider if: ? You feel nauseous. ? You vomit. Get help right away if: ? You are taking oral or injectable medicines and you have an erection that lasts longer than 4 hours. If your health care provider is unavailable, go to the nearest emergency room for evaluation. An erection that lasts much longer than 4 hours can result in permanent damage to your penis. ? You have severe pain in your groin or abdomen. ? You develop redness or severe swelling of your (more content not included)... Normal [facility] Urology Office/Clinic Noteon 03-05-2021 Urology Office/Clinic Note Chief Complaint OV for ED HPI Staff Pt is here for ED sx. Pt was last seen by DLS in 2019. S/P Urolift 09/14/2018, S/P Cysto 07/2018. Pt is currently not taking any BPH medications at this time. Pt has tried Viagra and Cilais in the past with no succuss. Pt was dx with a small inguinal hernia. Pt states that he fell down the steps last year and had a hip replacement. Pt states that he had an injection of corticoid steroids in the upper thigh and he was unsure if that was from this. Dysuria: burning after sex with the first urination Incomplete bladder emptying: feels likes he is emptying Hematuria: denies any blood in urine Frequency: pt has frequency sx after water pill Urgency: intermittent moderate sx Nocturia: severe voiding every 2 hours due to water pills Stream: varies from average to weak/dribble stream, moderate hesitation, no intermittent stream, moderate straining Post void dripping: none Wearing pads/ Depends: _ Urge incontinence: intermittent , only when he holds for to long Stress incontinence: none Incontinence without Sensory Awareness: none Abdominal pain: only from gas, nothing urinary issues Sexual complaints: Viagra and Cialis in the past with out any success. When he is able to achieve an erection its about at a 60%. No pain with erections. No blood in semen. Pt is able to get an erection throughout the night, but after he takes water pills there is no chance of getting any erections History of Present Illness staff HPI reviewed and agree. Review of Systems PHQ Score Initial Depression Screen Score: 0 no fever, chills, malaise, myalgia. no rash/lesions. no chest pain, palpitations, or SOB. no abdominal pain, nausea, vomiting. no unilateral calf swelling, redness, pain Physical Exam Vitals & Measurements HR: 64(Peripheral) RR: 18 BP: 124/97 HT: 162.0 cm HT: 162 cm General: nontoxic, NAD Mouth: moist mucosa Lungs: normal respiratory effort Cardio: regular rate, good distal perfusion Abdomen: nondistended, no suprapubic distention or tenderness, no CVA tenderness Neurologic: Grossly normal Skin: No rashes or suspicious lesions Assessment/Plan 1. Male impotence (N52.9: Male erectile dysfunction, unspecified) failed Cialis, Viagra, and Levitra in past. DLS advised him to lose weight and stop drinking at last visit - he has done both (down 60#). still having trouble maintaining erections and achieving full 100% strength. discussed penile injection therapy but pt is adamantly opposed. discussed penile pump/ring and he would like to give this a try. provided brochure to order. Ordered: Office Visit Level 4 Est 03342 2. Hypogonadism male (E29.1: Testicular hypofunction) noted in hx. testosterone 10/16/18 - 79 (normal range 264-916). however pt reports good energy, strength, stamina, and good interest in sex. lost 60# over the last couple years with diet. advised that testosterone won't necessarily improve his ED and since he's not c/o any sx associated with low T we will hold off on checking/treating at this time. Ordered: Office Visit Level 4 Est 51571 3. BPH with urinary obstruction (N40.1: Benign prostatic hyperplasia with lower urinary tract symptoms) s/p Urolift September 2018. Pt is currently taking no bladder/prostate medication and is mostly satisfied with overall symptom control. has nocturia but attributes this to diuretics. Pt prefers to continue with no changes at this time. PCP checking PSAs per pt. Ordered: Office Visit Level 4 Est 33278 Orders: Urnls Dip Stick Auto w/o Microscopy POC 19108 offered f/u 1 yr but pt prefers PRN. Total time spent reviewing previous notes/results/externa l documents, preparing the chart, conducting the encounter with the patient and family, ordering tests/medications, and documenting the encounter was 30 minutes. Follow-up With When Contact Information ITA SLOAN, SIMONE Priest [address] [place] [address]- Additional Instructions: Patient Education Erectile Dysfunction Problem List/Past Medical History Ongoing BMI 40.0-44.9, adult BPH with urinary obstruction Former smoker Hypogonadism male Male impotence Morbid obesity Smoker Urine frequency Historical Feeling of incomplete bladder emptying Urinary urgency Weak urinary stream Procedure/Surgical History Transurethral insertion of prostatic urethral lift implant (09/14/2018), Cystoscopy, Hip replacement. Medications calcium-vitamin D, Not taking cetirizine 10 mg oral capsule, 10 mg= 1 cap(s), Oral, Daily, PRN furosemide 20 mg Tab, 40 mg, Oral, BID gabapentin 300 mg Cap, 300 mg= 1 cap(s), Oral, Bedtime Home Oxygen, Daily Lidoderm 5% Patch, 1 patch(es), Topical, Daily montelukast 10 mg Tab, 10 mg= 1 tab(s), Oral, Daily nabumetone, 500 mg, Oral, BID omeprazole, Oral, Daily oxycodone, 7.5 mg, Oral, q6hr, PRN spironolactone, Oral Trelegy Ellipta, Inhalation, Daily Trelegy Ellipta 100 mcg-62.5 mcg-25 mcg inhalation powde (more content not included)... Normal [facility] Comment on above: Result Comment: Elec tronically Signed By: DANIEL MARTINEZ, TOMEKA Priest\.br\Date and Time Signed: 03/05/21 12:24 EDT MRI PELVIS WO CONTRASTon MRI PELVIS WO CONTRAST [facility] Department of Radiology [address] [place] [address] Patient Name: LILIANA MICHAELS : 1965 Sex: M Age: Race: White Pt. Location: 18 Patient Status: Ordered Date: 09/10/2020 3:35:00 PM Completed Date: 10/03/2020 08:34 AM Requesting Provider: SIMONE RUIZ Attending Provider: Report Copy To: Signs & Symptoms: R10.2 Pelvic and perineal pain I10 History: [place], Right FOREIGN per clinic will fax [facility] auth# [id number] 09/16/20-10/17/20 cpt code 40949 *mla Comments: Right groin to r/o an adductor tear; iliopsoas bursitis or injury Exam: MRI PELVIS WO CONTRAST MRI PELVIS WO CONTRAST 10/03/2020 8:34 AM CLINICAL INDICATIONS: R10.2 Pelvic and perineal pain I10 TECHNOLOGIST COMMENTS: patient complains of right groin pain. h/o fall QUESTION FOR THE RADIOLOGIST: Right groin to r/o an adductor tear; iliopsoas bursitis or injury PROTOCOL: Images were obtained in the following sequences: 3-Plane locallizer, COR PD fat-sat, SAG PD fat-sat, Axial PD fat-sat, Axial T1. COMPARISON: Hip radiographs obtained 09/23/2020. FINDINGS: Artifact from right hip prosthesis noted. Bilateral fat-containing inguinal hernias identified. No enlarged lymph nodes. There is some fatty infiltration of the pelvic musculature right greater than left. No free fluid. Asymmetric atrophy of the right psoas and iliacus with intact iliopsoas tendon. Artifact limits assessment of the attachment sites of the gluteus minimus and medius at their greater trochanter. Distal rectus sheath and pubic symphysis appears intact. There is artifact involving the adductors, however, there appears to be some edematous changes noted distally near their attachments. There is also some intermediate signal distally involving the iliopsoas tendon near the lesser trochanter. Moderate degenerative changes of the left hip. Degenerative changes of the lumbosacral spine. IMPRESSION: 1. Right hip arthroplasty noted. There is edema noted within the distal aspect of the right adductor group likely related to grade 1 or possibly grade 2 strain near the femoral attachment sites, with iliopsoas tendinosis. 2. Asymmetric right pelvic muscle atrophy. 3. Moderate degenerative changes of the left hip joint are also noted. 4. Degenerative changes of the lumbosacral spine. Electronically signed: Dinh Haskins. Transcribed by: [email or web address], User Resident: Electronically Signed by: DINH HASKINS @ 10/03/2020 09:57 AM Normal [facility] Comment on above: Order Comment: Right groin to r/o an adductor tear; iliopsoas bursitis or injury Operative Reporton Operative Report MR#: [id number] [facility] Pt. Name: Liliana Michaels Room #: PMC Discharge Date: Birthdate: 1965 OPERATIVE REPORT DATE OF SURGERY: 09/10/2020 SURGEON: Simone Ruiz MD PREOPERATIVE DIAGNOSIS: Right iliopsoas bursitis. POSTOPERATIVE DIAGNOSES: Right iliopsoas bursitis and adductor bursitis. PROCEDURES: Right iliopsoas bursa injection and right adductor muscle injection under ultrasound guidance. ANESTHESIA: Local plus sedation. COMPLICATIONS: None. CLINICAL NOTE: The patient is a 55-year-old man with chronic right groin pain. Predominant pain is with hip flexion, but he also has pain at the adductor with tenderness on palpation. OPERATIVE NOTE: After informed consent, the patient was taken to the procedure room, placed in the supine position. The correct side was marked. Time-out was accomplished. The groin was prepped with chlorhexidine, alcohol, and draped in sterile fashion. Lidocaine was used to numb the skin. The bursa of the right iliopsoas muscle was identified under ultrasound and 7 mL of 0.25% bupivacaine and 30 mg Depo-Medrol was injected under ultrasound guidance into the bursa. Attention was then turned to the right adductor muscle. The adductor muscle was injected with 7 mL of 0.25% bupivacaine and 10 mg Depo-Medrol. A 4-inch Stimuplex needle was used. The patient tolerated the procedure well and was taken to recovery in satisfactory condition. The patient noted good improvement in hip flexion, but continued to have some tenderness on abduction. He will return to Pain Clinic for evaluation. There were no apparent complications. Electronically Signed by: Simone Ruiz MD 09/11/2020 01:14 P Simone Ruiz MD Date Dict: 09/10/2020/12:15 P/Simone Ruiz MD Date Trans: 09/10/2020 11:40 P/mmo DN_[id number] cc: Ishmael Simon M.D. [address] [place] [address] [place] [facility] Coding Summary.on 09-01-2020 Coding Summary. CD:[id number] G h0bWw+PGhlYWQ+OV4KIEG hX53uiAKkvP9DA5lRQM4I YWJJOYZDVT3DVU9doYY1T VhbQ1OjpqJt WhpgbNSoLF79LCm1JCC5c WahEEkzhA9ujDPkS8u8Sv OtTD41eA53DAarMJNwJmV 3LjZpbjsgbWFy M5aeXhCixJHpXfb+PHRhY mxlIHdpZHRoPScxMDAlJy KdwMunBH1mAi6wIGHhAXN vbGxhcHNlOiBj f8uiKCKoNYcgNF0onLioY 6VkiQG0MCFlt9y3Uy83sD I+AEDtHQN1lXdqMFuks47 2UgKaf5moYZN6 kMSpSWcvTVH4Q49lt0J5F TZuVVBsJDB2pZO4qP8dgW xvzksyL2QhiCQpHpA3RZH 5sCWhtK5xrUvv viuctN4dPbf+C32TZT9EI IBRCY6XMxm7P6OdFivphS I+NW07OLMsIA09aLEbgFD wv3grlJf2XaVf INVuMLR2fFdxOSliy4RiC IJmS06coPQiu4J0MBKtqH dyxDZiIoHkbPN4aF5nRRt pcjynx3dknhey Ivlrd3ojvu71nE98W49zX PkvSIJzGRN3BUDkDOXgeD tueg2gxS5jSt0+XPkku7x lo0flkZb1RfSu WSFmyhIboLtdBQM3r4RyJ s03R6UnvHgqh8LzEjd6hq 55bBVyv6I7yNQ2UVvzFWB esI4oGRncToI7 GTZhPyVakR54uKArNNwaO r4czGjrwHpnWT8mMHGefg zfOTYskP2oXJIyoVPchYh cTX2eNSAhgrjc m983YfXyTNE2EPOtuJRxB 6YihP4vJqCpFKNqZTUpQ9 VzjGZvNBtuX492VRypCnJ 6TODrknIfN6Sp VAKwdVktPgZ6p7Y1Rq1Vb 0VlflnkLBP8YQttSVG7Vg R1GpNkOqH4I2YwMqv2VZR emHxbHC7yD3Of RUUfmgwkallgbGQ8YSUaI EGnjN35gVYlJDazFr8pv4 J7u116WQAhXSYmeG57Cb7 udDogMTBwdCBU yJ9tlkcto2tqczvqUzMxI EFmYTm7FEh2XOTvkWfmPo ApMPV0XxJ0FCD0oXZssI2 jhKnqvottqC5t Oyc+L28jnU2pIMG6XFT7c oibYXSadzAaEQ03HC32N7 RyPjwvdGFibGU+PGRpdiB fbBuvCP9jGiYo a2zlx1KxDKwzX4EzIIRbR VefYae5NKLzFMA8tHV7dE 3dOBLhAVzng4T7fUU1U5P ljdHdlt6hv4ko LLApBIlxW64wrVLfd5O7W MSujCU2PJMhcBnuAsZktI 93Oyc+PPDkuMdnj4PzCll ba2emi9kekNe6 FeOmWNNdxtPviWhfCQW5m 6WkUi04C95mDZpbEELrUK SsLYFkSDPntSwntf1wzL1 wIi8+PGNvbCB3 sAV0hG5dYBQzGtN8BSudX 236UhTfrCUoFefye4ixn7 yrbOk7UeJfBCSipdQdoUs uLYM0o3PmPm62 Z05lQCsiRVFlHNZjNLZfI BPltWtedx0wcN0fLo7+PC 4km0orpl48aL57eMD+PHR nSDU5kBtrMPca KGRiaK1hTGwiUhG0OCEcK jQezG55wSOcPNrwTj8csQ buhAlqER3hAFNwsalvo25 2PmSaq3ufSBHb dQWeMAitEAV4U88ps9X8Q JWbCMCxYAP7oJA3wH8qmU lnbjogbGVmdDsgdmVydGl rJZatFBmaX107 IHRvcDsnPlBhdGllbnQgT gUnDOh6I3QpGif6AXVsgP rgWI5ciJYeAKpiDu2juJg koOlfPD1aBXJp dpgvi587PfEng0kjPUZhj ZSiQUiiDDW7B97kz3J4LK LaUPUzOMN1cYG2gK3vfUj nbjogbGVmdDsg vxLvkWijIRytAXjcX482W HRvcDsnPkJpcnRoIERhdG K8HG02IB24fCDlv0S7yND 9R6WhRKGkvyhx xweybZL7GROpCLPdwH31P s0kuBygAc3wSZYsCGT0TC TuvCJqB2TppC9wUwInBMZ rKASiP0UqvMBh HQexA539XYqyFhF6OQJwl lJtT9FtMXRpdYohHtP1e6 T5Ys0TK0V3VS07ZJ11eMN sp2P7uAD8J6Tw DSPvxxafzakguLF5FJVbF SZojW97Wr1ntZylMb7lZA SfWHK7BBQxaYAsB5PbaF0 yOiAjMDAwMDAw X8ZaeBUpXDzdH242MMqeJ zE0COAdkiHgQ9BxJODcqV ezUvX4r0F0Su8TGOq2KX4 9OJ56kTSnv8J7 pGM1D0FiUPGtzzqaylwhi LH3HCRnHTKzuD12Pf8maH lrDo1rTWEtAKN3NUDwsNA qR7QhxB8jQxAs VXQkUVPnK0ZwoCIlKUozP 729FVpaKyJ4MZNrwhImW2 QhBYXokTbqXmG2p4E1Nt0 DEEJzTJ62YOU0 nRW4FF22PF96R5VaJmvju GFibGU+PHRhYmxlIHdpZH RoPScxMDAlJyBzdHlsZT0 mYz2pKZViQIDo rDxniHXaSqIrz6dwGHVlV AzaQU7qoQiyI4ImjNO1EG Mdi9v9Dj49K24kD2CgzIV +VJQgxQR3lYP4 fM5xCeNyRqE9ASnaW501Q dZkeSMyIbygh5rxy9pjoM e6OhB6XIYuhwGneOlqUKG 5l7WaFl52Z83l IHdpZHRoPSIxNSUiIHZhb Udiyv9hqT1jAv2+PGNvbC E3xPP7aY8dVcStLcI3IWh rL061QuFxcNPg Fiqhn3zyq3pvoBe5BcYzD TRvsrTxzUsdWEO8s7FpTa 37Z6OpmQppl0ZcVrp1ps4 4uXGbv6S6mTT7 Q3PmJHEiifggpHQduSyzR J5tYRHkutrwWKOxgN3fRD VfR3l7KmGcYcV1MGrkP8B febE6PYGuuNDg GAfpANL1T57av5T7WSQxW RVaGWP2wFL3mT3rwDtlji ogbGVmdDsgdmVydGljYWw kPLabE343SEWn iUcwNEPedW6yHRWulEUmt YivOI1eJTLhclhePyhVGR 5FUiwgUkFMUEggRTwvdGQ +OMXjQAP2xXqw PTqtMOJswE0sHFMaP1w5S fOjGuC1RQsxV5CtMZKlmn fgFo02gW3vWkAlGtW1WNu sH9PumvP1ZITk dAFwIPnlIPC8U41uc1S1H ARbXOAvEVH9wNP3aG3wgA lnbjogbGVmdDsgdmVydGl uEOdxFHulC926 UBSbmBbySsAkMtA1SrL3K eZ0X8HbDbi6VNKhfKpjDU 9zeJDjOJzhQz7rvFzaiWz dXP3cDYNarlsx BMPlvF1wRALicLJrtOdjL I3oMOYuvnydn326EsLtBL E6QRYchPMcL9IxlG4cOnP eDRHaFGZwD6Sd cQQtHXurW983QNtuLuV6F JRqdyQgD6FkVDTykSnwSr S1l4Z8Sz85ZmRIAQJjofm vdGQ+PHRkIHN0 hDkpTNzjJYKalM5hNOJyI 3e1YuAbLrJ5CBdaG5DqLX XhbgcvIh90vK7gXwKeWoZ 3YVndA0SyidS8 IQBddDYaKCycCVH7E72mn 2J7JMKoPCMoTEF7pTY7gI 1hbGlnbjogbGVmdDsgdmV ydGljYWwtYWxp M300IMKgxTlpQo2shQL0A 0QvGtl9YIOwzDdsWA5vqN IqVMalFv2dhKmwjEywLI2 wNTBpbjtwYWRk qP2fHGLetEOemDitEF7hK DLefdnpx702QkEkQEV7ZB GlzGZhV0EyrE7lLaDnFAW zERZtY4PfxHJl YAoaJ079AStyQdH9WBPni xRzJ1UkCWCgeSxwPaY6p4 P3Ss7FwPDgY4WdZ5b1Z9E kPjwvdHI+PC90 LLNxDQ03lNLkwISus8soo Nl1AnClPLYfBFD0lZflZH lyb4KoPVBgL50xkDNhx6O 6IGNvbGxhcHNl PfHkoVH9xR2dJEdtwakvz 8frzghwUniju1khkd13dR 16N98wUBdvVPRfVSYxWUD cCEPtiSaguu8k tF0dOd2+MZQasBW4rJW0g M7xFeUsEzW6VKlxQ231Rm GvhJGpRdvhd2jtj4ttkQw 9IjIwJSIgdmFs cOivMGZ4m3LnEo84A21lC HdpZHRoPSIyMCUiIHZhbG pxns9zfF2jEi9+TQ1jm8u iwk00dK53dHL+ ZAUsNCB8eMebVGotCZPwm D6yKXppWeO1MYZfXkOneH 19zFKwRCgaYz8swEtucNi aZN3pXONcnxcu k800KxEvf9pdPRUfkQQfG VeuOMJ0S46wk2T3JIQnRO IzFGZ5oUH5yH6qiJchefy gbGVmdDsgdmVy iPrwSLemHAhlW582ZJCpw WvuRoSmlQVwY5arulYXKN 1lOjwvdGQ+GBRgUPJ6nWc pDUdnHTDguX3t BDGoC4e0RrIhFuK5WJgaS 4RioiT6YVQuaRDvLKBobZ LAuO4unoozt9ynnoqbFaJ uEWNvCAi7APg4 IRDbyUdvPeXxIDD1VoZ9S EE9oXHxjA4inMwvxasyaY 9wOyc+RklOOjwvdGQ+PHR sSMO9lJqkBUir FFDfrX8tWXGeD1r9MxOmI pT3YLrwF6MgbpQ3HWGfaE HoFKTzgTUIbF1llpctf3i vcjogIzAwMDAw NYb9ORr7CRExoHjlRwQlU UV5DsH9AZE3qWUciQ3viC fokrixtT5vYfa+TVJOOjw vdGQ+PHRkIHN0 hKbcHSltPBKzaA9cWXWtT 9m7SzKzYwL1FBbwH8Ampu G4BYPfzYFcQRLcgPRFpG2 xygeae7jgcwfz TbLgGFJlAJj0PPi7LDCpx NlsLsYeVGJ7CdG6MQG6wP WoaM7rzLguepkjdF3hIfu +WAE5TCO1EY77 EC53U0HtUnvesPAjzGU+P HRhYmxlIHdpZHRoPScxMD VpWkJbeFvcVR6tDh2vQRD yLWNvbGxhcHNl Oi (more content not included)... Normal [facility] Auto Diffon 08-24-2020 Basophils/100 WBC (Bld) 1.0 % Normal 0.0-2.0 [facility] Comment on above: Order Comment: Order Added by Discern Expert. Performed By: #### 1 [id number], [id number], [id number], [id number], [id number] ####[address] [place] [address] Basophils/Leukocyte s Auto (Bld) [Pure # fraction] 0.1 E9/L Normal 0.0-0.2 [facility] Comment on above: Order Comment: Order Added by Discern Expert. Performed By: #### 1 [id number], [id number], [id number], [id number], [id number], [id number] ####[address] [place] [address] Eosinophils/100 WBC (Bld) 2.5 % Normal 0.0-8.0 [facility] Comment on above: Order Comment: Order Added by Discern Expert. Performed By: #### 1 [id number], [id number], [id number], [id number], [id number], [id number] ####[address] [address] Eosinophils/Leukocy tobi Auto (Bld) [Pure # fraction] 0.3 E9/L Normal 0.0-0.5 [facility] Comment on above: Order Comment: Order Added by Discern Expert. Performed By: #### 1 [id number], [id number], [id number], [id number], [id number], [id number], [id number] ####[address] [place] [address] Lymphocytes/100 WBC (Bld) 21.0 % Normal 14.0-50.0 [facility] Comment on above: Order Comment: Order Added by Discern Expert. Performed By: #### 1 [id number], [id number], 1501046, [id number], 1676428, 3003554, [id number], [id number] ####[address] [place] [address] Lymphocytes/Leukocy tobi Auto (Bld) [Pure # fraction] 2.1 E9/L Normal 1.0-4.0 [facility] Comment on above: Order Comment: Order Added by Crystal Expert. Performed By: #### 1 [id number], 0925638, 5794850, 25300407, 1488318, 9694198, [id number], [id number] ####[address] [place] [address] Monocytes/100 WBC (Bld) 6.2 % Normal 4.0-14.0 [facility] Comment on above: Order Comment: Order Added by Discern Expert. Performed By: #### 1 [id number], [id number], 8532481, [id number], 7595389, 1150066, [id number], [id number] ####[address] [address] Monocytes/Leukocyte s Auto (Bld) [Pure # fraction] 0.6 E9/L Normal 0.2-1.0 [facility] Comment on above: Order Comment: Order Added by Crystal Expert. Performed By: #### 1 [id number], 9273276, 5202376, 95082346, 7688320, 8504411, 02117149, 84969116 ####[address] [address] Neutrophils/100 WBC (Bld) 69.3 % Normal 36.0-75.0 [facility] Comment on above: Order Comment: Order Added by Crystal Expert. Performed By: #### 1 [id number], 9461506, 6456258, 91462396, 6540760, 7036650, 56777786, 74607249 ####[address] [place] [address] Neutrophils/Leukocy tobi Auto (Bld) [Pure # fraction] 6.9 E9/L Normal 2.0-7.5 [facility] Comment on above: Order Comment: Order Added by Crystal Expert. Performed By: #### 1 1431153, 6638033, 3051893, 11075975, 1285493, 4183210, 64911444, 60695630 ####[address] [place] [address] BMPon 08-24-2020 Creatinine [Mass/Vol] 1.1 mg/dL Normal 0.5-1.3 [facility] Comment on above: Performed By: #### 1 2167008, 1313185, 1662026, 14128716, 5476480, 7914868, 96893854, 29744236 ####[facility] [address] [place] [address] Urea nitrogen [Mass/Vol] 19 mg/dL Normal 5-21 [facility] Comment on above: Performed By: #### 1 6841169, 2708773, 7954138, 36290408, 9608139, 2434396, 11504351, 82212600 ####[facility] [address] [place] [address] Urea nitrogen/Creatinine [Mass ratio] 17 No Units Normal 10-20 [facility] Comment on above: Performed By: #### 1 8381654, 7428210, 1109087, 43740490, 5462532, 7293410, 59698809, 76332697 ####[facility] [address] [place] [address] Anion gap [Moles/Vol] 14 mmol/L Normal 6-16 [facility] Comment on above: Performed By: #### 1 9808456, 2784506, 9973412, 40246651, 7034026, 7953564, 60981180, 69076859 ####[facility] [address] [place] [address] Calcium [Mass/Vol] 9.4 mg/dL Normal 8.9-11.1 [facility] Comment on above: Performed By: #### 1 0542653, 3013705, 1082076, 39429626, 2482150, 9106166, 23525450, 06008592 ####[facility] [address] [place] [address] Chloride [Moles/Vol] 94 mmol/L Low 101-111 [facility] Comment on above: Performed By: #### 1 8155460, 7923437, 8901536, 99566610, 4672450, 8255229, 75669811, 05133283 ####[facility] [address] [place] [address] CO2 [Moles/Vol] 29 mmol/L Normal 21-31 [facility] Comment on above: Performed By: #### 1 7622693, 8069554, 0437391, 93894342, 0160546, 2963849, 83887334, 30080713 ####[facility] [address] [place] [address] Glucose [Mass/Vol] 103 mg/dL Normal 55-199 [facility] Comment on above: Result Comment: If t his glucose result represents a fasting glucose, interpretation should refer to the following reference range: 55-99 mg/dL Performed By: #### 1 9774178, 1389603, 0403576, 86914838, 5372390, 7980051, 91620346, 59955706 ####[facility] [address] [place] [address] Potassium [Moles/Vol] 4.0 mmol/L Normal 3.5-5.3 [facility] Comment on above: Performed By: #### 1 2881756, 4436122, 4788465, 66853809, 4984734, 2986568, 26404615, 85082020 ####[facility] [address] [place] [address] Sodium [Moles/Vol] 133 mmol/L Low 135-145 [facility] Comment on above: Performed By: #### 1 0559964, 0698377, 1603240, 75030752, 4240075, 5648967, 72148438, 32655931 ####[facility] [address] [place] [address] BNPon 08-24-2020 Natriuretic peptide B (Bld) [Mass/Vol] 17 pg/mL Normal 5-80 [facility] Comment on above: Performed By: #### 1 0725510, 9469144, 9876035, 10015082, 2117184, 8975127, 45525750, 39625671 ####[address] [place] [address] CBC w/ Auto Diffon Erythrocyte distribution width (RBC) [Ratio] 12.9 % Normal 10.9-14.2 [facility] Comment on above: Performed By: #### 1 2360610, 1799433, 2671833, 50555774, 4820536, 6100574, 19244417, 25539920 ####[address] [place] [address] Hematocrit (Bld) [Volume fraction] 44.4 % Normal 37.7-49.0 [facility] Comment on above: Performed By: #### 1 3153286, 4935853, 0772683, 83510847, 5249358, 5765529, 73631199, 30380216 ####[address] [address] Hemoglobin (Bld) [Mass/Vol] 15.3 g/dL Normal 13.5-17.5 [facility] Comment on above: Performed By: #### 1 6263751, 6997991, 3175662, 95538591, 0604009, 2495300, 98246948, 91634567 ####[address] [place] [address] MCH (RBC) [Entitic mass] 31.5 pg Normal 27.0-34.0 [facility] Comment on above: Performed By: #### 1 0240217, 3810618, 0496572, 80219231, 5457113, 4398305, 51363723, 47372471 ####[address] [place] [address] MCHC (RBC) [Mass/Vol] 34.4 g/dL Normal 31.4-36.0 [facility] Comment on above: Performed By: #### 1 7537073, 9225801, 7044331, 22365140, 5066958, 8599094, 73139892, 76901843 ####[facility] [address] [place] [address] MCV (RBC) [Entitic vol] 91.6 fL Normal 80.0-100.0 [facility] Comment on above: Performed By: #### 1 5060571, 1873707, 6645321, 58524419, 6008806, 5104185, 05774595, 42296445 ####[address] [place] [address] Platelet mean volume (Bld) [Entitic vol] 8.4 fL Normal 6.4-10.8 [facility] Comment on above: Performed By: #### 1 3320516, 0104373, 8416925, 72996786, 9515791, 8972629, 00467374, 81557363 ####[address] [address] Platelets (Bld) [#/Vol] 289.0 E9/L Normal 150.0-500.0 [facility] Comment on above: Performed By: #### 1 4017637, 6238144, 8975689, 04085530, 7943321, 5049537, 65687650, 12386023 ####[address] [address] RBC (Bld) [#/Vol] 4.8 E12/L Normal 4.3-5.9 [facility] Comment on above: Performed By: #### 1 3078211, 6501560, 2208374, 03225597, 0318752, 5616172, 66093818, 39432223 ####[address] [place] [address] WBC corrected for nucl RBC Auto (Bld) [#/Vol] 9.9 E9/L Normal 4.0-11.0 [facility] Comment on above: Performed By: #### 1 9302835, 2864980, 0688902, 73857186, 0440107, 6545053, 58106609, 52668560 ####[facility] [place] [address] CTA Cheston 08-24-2020 CTA Chest Exam Date/Time: 08/24/2020 01:56 EDT Reason for Exam: PE suspected, low/intermediate prob, positive D-dimer;Other (please specify) Report IMPRESSION: NEGATIVE STUDY EXAM: CTA Chest History: Chest pain, SOB shortness of breath, difficulty breathing, chest pain Technique: Multiple contiguous axial images were obtained of the thorax from the thoracic inlet through the upper abdomen during dynamic administration of IV contrast. Sagittal and coronal reformats as well as 3-D MIP projection reformations have been obtained. Comparison: Findings: Visualized portion of the thyroid gland is within normal limits. No axillary, mediastinal, or hilar lymphadenopathy. There is a three-vessel aortic arch. No thoracic aortic aneurysm. Esophagus is within normal limits. Heart size is within normal limits. No significant pericardial effusion. There are no persistent filling defects within the pulmonary arteries. No pulmonary nodule or mass. No consolidation, pleural effusion, or pneumothorax. Airways are patent. No bronchiectasis. Visualized upper abdominal viscera appear within normal limits. Bones of the thorax are within normal limits. All CT scans at this facility use dose modulation, iterative reconstruction, and/or weight based dosing when appropriate to reduce radiation dose to as low as reasonably achievable. FINAL REPORT Dictated: 08/24/2020 11:04 am Tomer Reis MD, V. Signed (Electronic Signature): 08/24/2020 11:04 am Signed by: Tomer Reis MD, V. Transcribed by: VIVIAN Technologist: DAT Technical Comments GFR (mL/min/1/73m2) >60 Contrast: Isovue 370 Contrast amount in ml's: 78 Normal [facility] Consent for Treatmenton 08-07 Consent for Treatment [id number] .[id number]:127 Normal [facility] D-Dimeron 08-24-2020 Fibrin D-dimer FEU (PPP) [Mass/Vol] 845 ng/mL Abnormal 215-500 [facility] Comment on above: Result Comment: Resu lts Verified By Repeat Analysis Results Called To Ami Toledo/TIRSO By Mojgan Martinez And Read Back For Confirmation On 08/24/2020 01:04:09 EDT. This D-Dimer assay may be used in conjunction with a non-high clinical pretest probability assessment to exclude deep-vein thrombosis(DVT). For exclusion of venous thrombosis or pulmonary embolism the analyte D-Dimer should not be used as an aid in patients with: Therapeutic dose anticoagulant therapy for >24 hours Fibrinolytic therapy within previous 7 days Trauma or surgery within previous 4 weeks Disseminated malignacies Aortic aneurysm Sepsis, severe infections, pneumonia, severe skin infections Liver cirrhosis Performed By: #### 1 9438947, 1763510, 2605264, 66613118, 2461317, 4134567, 71854564, 24835732 ####[address] [place] [address] Discharge Instructionson Discharge Instructions [id number] .[id number]:127 Normal [facility] ED Clinical Summaryon 2020 ED Clinical Summary [id number] ED Clinical Summary Person Information Name: LILIANA MICHAELS Cem Kristine[facility] Age: 55 Years : 1965 Sex: Male Language: Persian PCP: SIMONE JEAN BAPTISTE DC Marital Status: Single Phone: [phone] Visit Id: Visit Reason: Rib/trunk pain-swelling; SIDE PAIN WHEN BREATHING, SOME COUGHING Speciality: Acuity: 3 Enc Type: Emergency Med Service: Emergency Arrival: 08/23/2020 23:48:11 Discharge: 08/24/2020 03:27:52 LOS: 000 03:39 Checkin: 08/23/2020 23:48:11 Checkout: 08/24/2020 03:27:52 Dispo Type: Home (Routine DC) EVENTS: Event Name Event Status Request Date/Time Start Date/Time Complete Date/Time Arrive Complete 08/23/2020 23:48:11 08/23/2020 23:48:11 08/23/2020 23:48:11 Document Home Meds Request 08/23/2020 23:48:11 Triage Complete 08/23/2020 23:48:11 08/24/2020 00:04:03 08/24/2020 00:04:03 Bed Assign Complete 08/24/2020 00:10:25 08/24/2020 00:10:25 08/24/2020 00:10:25 Dr Exam Complete 08/24/2020 00:10:25 08/24/2020 00:12:21 08/24/2020 00:12:21 RN Exam Complete 08/24/2020 00:10:25 08/24/2020 00:17:51 08/24/2020 00:17:51 Registration Complete 08/24/2020 00:12:21 08/24/2020 01:16:20 08/24/2020 01:16:20 EKG Complete 08/24/2020 00:16:47 08/24/2020 00:23:08 Pending Labs Collected 08/24/2020 00:16:47 Lab Collected 08/24/2020 00:16:47 Meds Admin Complete 08/24/2020 00:16:47 08/24/2020 00:46:08 Patient Care Request 08/24/2020 00:16:47 X-Ray Complete 08/24/2020 00:16:47 08/24/2020 01:04:20 08/24/2020 01:04:37 RT Request 08/24/2020 00:16:47 RT Tx/ABG Complete 08/24/2020 00:16:47 08/24/2020 01:53:23 08/24/2020 01:53:23 Meds Admin Complete 08/24/2020 00:17:31 08/24/2020 00:22:10 Pending Labs Complete 08/24/2020 00:41:18 08/24/2020 00:41:18 08/24/2020 00:55:20 Lab Complete 08/24/2020 00:41:18 08/24/2020 00:41:18 08/24/2020 00:55:20 Pending Labs Complete 08/24/2020 00:50:48 08/24/2020 00:50:48 08/24/2020 00:50:55 Lab Complete 08/24/2020 00:50:48 08/24/2020 00:50:48 08/24/2020 00:50:55 Wet Read Request 08/24/2020 01:04:37 Reg Complete Request 08/24/2020 01:16:20 CT Complete 08/24/2020 01:23:16 08/24/2020 01:31:45 08/24/2020 01:56:07 Meds Admin Complete 08/24/2020 02:30:20 08/24/2020 02:35:49 Pending Labs Complete 08/24/2020 02:31:31 08/24/2020 03:02:50 Lab Complete 08/24/2020 02:31:31 08/24/2020 03:02:50 Discharge Complete 08/24/2020 03:09:45 08/24/2020 03:27:58 08/24/2020 03:27:58 Transfer Complete 08/24/2020 03:27:58 08/24/2020 03:27:58 08/24/2020 03:27:58 ADDRESS: [address] [place] [phone] PHYS DOC NOTES: MEDICAL INFORMATION: Prescriptions Given: New Medications [id number], [address], [place] [id number], [phone] azithromycin (Zithromax TRI-AMIRA 500 mg oral tablet) 1 Tablets By Mouth every day. Refills: 0. lidocaine topical (Lidoderm 5% Patch) 1 Patches Topical every day. apply 12 hours on and 12 hours off daily. Refills: 0. Medications to Continue with No Changes Other Medications calcium-vitamin D cetirizine (cetirizine 10 mg oral capsule) 1 Capsules By Mouth every day as needed for allergy symptoms. gabapentin (gabapentin 300 mg Cap) 1 Capsules By Mouth at bedtime. montelukast (montelukast 10 mg Tab) 1 Tablets By Mouth every day. oxycodone 7.5 Milligram By Mouth every 6 hours as needed Pain 4-7. PATIENT EDUCATION INFORMATION: Instructions: Chest Pain (Nonspecific) Follow up: With: Address: When: SIMONE JEAN BAPTISTE [address] [place] [address] Business (1) In 1 day 08/25/2020 Comments: Patient is advised to follow-up with his primary care physician in 1 to 2 days. He is also advised to come back to the emergency department if symptoms get worse. DIAGNOSIS: 1:Rib pain on left side Normal [facility] ED Note-Physicianon 08-25-19 ED Note-Physician Basic Information Time Seen: David Palacio MD 08/24/2020 00:12 Chief Complaint c/o left rib pain for the past 2 days. Increased pain with deep inspiration. History of Present Illness Patient came to the emergency department because of left-sided rib pain. Patient has history of fracture of the ribs on that side and it feels like that. Patient does not have any recent trauma, there is no recent traveling. Patient's pain gets worse with taking deep breaths. Patient's feels that his lung is trapped. Patient has his normal smoker's cough which has not changed. Patient is not complaining of any fever or chills. And has the symptoms since Tuesday. Patient is not complaining of any nausea, vomiting, dizziness, sweating or palpitations associated with the symptoms. Review of Systems Constitutional: no fever, no chills, no sweats, no weakness Skin: no Jaundice, no rash, no lesions, nopetechiae ENMT: no ear pain, no sore throat, no congestion, no hoarseness Respiratory: no shortness of breath, no cough, no orthopnea, no wheezing Cardiovascular: no chest pain, no palpitations, no edema Gastrointestinal: no nausea, no vomiting, no diarrhea, no GI bleeding Genitourinary: no dysuria, no hematuria, no discharge, no pain Frequency negative Musculoskeletal: no back pain, no trauma Neurologic: no headache, no dizziness, no numbness, no weakness Psychiatric: no sleeping problems, no irritability, no mood swings/depression. Heme/Lymph: no bleeding tendency, no bruising tendency, no petechiae, no swollen nodes Allergy/Immunologic: no seasonal allergies, no food allergies, no recurrent infections, no impaired immunity Additional ROS info: Except as noted in the above Review of Systems and in the History of Present Illness all other systems have been reviewed and are negative or noncontributory. Physical Exam Vitals & Measurements T: 36.6 ?C (Oral) HR: 58(Monitored) RR: 13 BP: 100/60 SpO2: 95% HT: 163.0 cm HT: 163 cm WT: 101.0 kg WT: 101 kg BMI: 38.01 General: alert, no acute distress Skin: warm, dry Head: no trauma, normocephalic Neck: Trachea midline, no adenopathy, no tenderness Eye: normal conjunctiva, sclera clear ENMT: TM's clear, oral mucosa moist, no pharyngeal erythema or exudate Cardiovascular: regular rate and rhythm, normal peripheral perfusion Capillary refill Less than 1 second Respiratory: Lungs CTA, respirations non labored Chest wall: no deformity., Very tender lower ribs on the left side Gastrointestinal: soft, non distended, no tenderness, no guarding bowel sounds normal. Genitourinary Normal Back: No tenderness, Normal ROM, Normal alignment. Extremities: no deformity, no trauma ,Edema none Color Normal Neurological: oriented x 4, LOC appropriate for age, CN II-XII intact, motor strength equal & normal bilaterally, sensation equal & normal bilaterally, speech normal Psychiatric: cooperative, affect appropriate for age, normal judgement, normal psychiatric thoughts. Medical Decision Making Chest x-ray showed questionable interstitial and airspace haziness scattered bilaterally CT scan was negative for any pulmonary embolism but showed minimal interstitial and airspace disease. Patient temperature 36.6. Blood pressure 100/60 heart rate is 58 respiration 1695% on room air. Patient's white count is 9900 with hemoglobin 15.3. D-dimer was 845. Troponin was 4.10. BNP 17. Patient glucose is 103. BUN 19 creatinine 1.1. Patient sodium is 133, potassium 4.0, chloride 94, CO2 29, anion gap of 14 calcium 9.4. Patient was given Lidoderm patch for his rib pain. Patient Covid test came out to be negative. Patient will be discharged home to follow-up with his primary care physician on Tuesday morning. He is also advised to come back to the emergency department if his symptoms get worse. Patient has no clinical evidence of pneumonia either by his vitals, his x-ray on his white count. Patient has reproducible chest pain in his lower ribs that is where he had fracture of the ribs in the past. She will be provided with Lidoderm patch and Z-Amira. Assessment/Plan 1. Rib pain on left side (R07.81: Pleurodynia) Ordered: lidocaine topical, 1 patch(es), Patch, TransDermal, Once, Stop date 08/24/20 2:30:00 EDT, STAT, Start date 08/24/20 2:30:00 EDT Rapid COVID Antigen ([facility]) Orders: albuterol-ipratropium , 3 mL, Soln-Inh, Inhalation, Once, Stop date 08/24/20 0:16:00 EDT, STAT, Start date 08/24/20 0:16:00 EDT azithromycin, 500 mg = 1 tab(s), Oral, Daily, # 3 tab(s), Refills(s) 0, Pharmacy: [id number], 163, cm, 08/24/20 0:04:00 EDT, Height/Length Dosing, 101, kg, 08/24/20 0:04:00 EDT, Weight Dosing famotidine, 20 mg = 1 tab(s), Tab, Oral, Once, Stop date 08/24/20 0:17:00 EDT, STAT, Start date 08/24/20 0:17:00 EDT lidocaine topical, 1 patch(es), Topical, Daily, 7 patch(es), Refill(s) 0, apply 12 hours on and 12 hours off daily, [facility]pharm[id number], 163, cm, 08/24/20 0:04:00 EDT, Height/Length Dosing, 101, kg, 08/24/20 0:04:00 EDT, Julian (more content not included)... Normal [facility] Comment on above: Result Comment: Elec tronically Signed By: Pia LANE, David\.br\Date and Time Signed: 08/24/20 03:10 EDT ED Patient Education Noteon 08-24-2020 ED Patient Education Note Chest Pain (Nonspecific) It is often hard to give a specific diagnosis for the cause of chest pain. There is always a chance that your pain could be related to something serious, such as a heart attack or a blood clot in the lungs. You need to follow up with your health care provider for further evaluation. CAUSES ? Heartburn. ? Pneumonia or bronchitis. ? Anxiety or stress. ? Inflammation around your heart (pericarditis) or lung (pleuritis or pleurisy). ? A blood clot in the lung. ? A collapsed lung (pneumothorax). It can develop suddenly on its own (spontaneous pneumothorax) or from trauma to the chest. ? Shingles infection (herpes zoster virus). The chest wall is composed of bones, muscles, and cartilage. Any of these can be the source of the pain. ? The bones can be bruised by injury. ? The muscles or cartilage can be strained by coughing or overwork. ? The cartilage can be affected by inflammation and become sore (costochondritis). DIAGNOSIS Lab tests or other studies may be needed to find the cause of your pain. Your health care provider may have you take a test called an ambulatory electrocardiogram (ECG). An ECG records your heartbeat patterns over a 24-hour period. You may also have other tests, such as: ? Transthoracic echocardiogram (TTE). During echocardiography, sound waves are used to evaluate how blood flows through your heart. ? Transesophageal echocardiogram (FREDDY). ? Cardiac monitoring. This allows your health care provider to monitor your heart rate and rhythm in real time. ? Holter monitor. This is a portable device that records your heartbeat and can help diagnose heart arrhythmias. It allows your health care provider to track your heart activity for several days, if needed. ? Stress tests by exercise or by giving medicine that makes the heart beat faster. TREATMENT ? Treatment depends on what may be causing your chest pain. Treatment may include: ? Acid blockers for heartburn. ? Anti-inflammatory medicine. ? Pain medicine for inflammatory conditions. ? Antibiotics if an infection is present. ? You may be advised to change lifestyle habits. This includes stopping smoking and avoiding alcohol, caffeine, and chocolate. ? You may be advised to keep your head raised (elevated) when sleeping. This reduces the chance of acid going backward from your stomach into your esophagus. Most of the time, nonspecific chest pain will improve within 2?3 days with rest and mild pain medicine. HOME CARE INSTRUCTIONS ? If antibiotics were prescribed, take them as directed. Finish them even if you start to feel better. ? For the next few days, avoid physical activities that bring on chest pain. Continue physical activities as directed. ? Do not use any tobacco products, including cigarettes, chewing tobacco, or electronic cigarettes. ? Avoid drinking alcohol. ? Only take medicine as directed by your health care provider. ? Follow your health care provider's suggestions for further testing if your chest pain does not go away. ? Keep any follow-up appointments you made. If you do not go to an appointment, you could develop lasting (chronic) problems with pain. If there is any problem keeping an appointment, call to reschedule. SEEK MEDICAL CARE IF: ? Your chest pain does not go away, even after treatment. ? You have a rash with blisters on your chest. ? You have a fever. SEEK IMMEDIATE MEDICAL CARE IF: ? You have increased chest pain or pain that spreads to your arm, neck, jaw, back, or abdomen. ? You have shortness of breath. ? You have an increasing cough, or you cough up blood. ? You have severe back or abdominal pain. ? You feel nauseous or vomit. ? You have severe weakness. ? You faint. ? You have chills. This is an emergency. Do not wait to see if the pain will go away. Get medical help at once. Call your local emergency services (911 in [place] Do not drive yourself to the hospital. MAKE SURE YOU: ? Understand these instructions. ? Will watch your condition. ? Will get help right away if you are not doing well or get worse. Document Released: 02/02/2006 Document Revised: 04/30/2014 Document Reviewed: 11/28/2008 ExitCare? Patient Information ?2015 [employer]. This information is not intended to replace advice given to you by your health care provider. Make sure you discuss any questions you have with your health care provider. Normal [facility] ED Patient Summaryon 021 ED Patient Summary [place] [id number] Patient Discharge Instructions Person Information Name: LILIANA MICHAELS Age: 55 Years Arrival Date: 08/23/2020 23:48:11 Discharge Diagnosis: 1:Rib pain on left side Primary Care Physician: SIMONE JEAN BAPTISTE DC Provider Information Primary Provider: Pia LANE, David Advanced Test Director:None The exam and treatment you received in the Emergency Department were for an urgent problem and are not intended as complete care. It is important that you follow up with a doctor, nurse practitioner, or physician?s executive assistant to president for ongoing care. If your symptoms become worse or you do not improve as expected and you are unable to reach your usual health care provider, you should return to the Emergency Department. We are available 24 hours a day. LILIANA MICHAELS has been given the following list of patient education materials, prescriptions and follow-up instructions: Follow-up Instructions: With: Address: When: SIMONE JEAN BAPTISTE [address] [place] [address] Business (1) In 1 day 08/25/2020 Comments: Patient is advised to follow-up with his primary care physician in 1 to 2 days. He is also advised to come back to the emergency department if symptoms get worse. In the event that this physician does not participate in your insurance network, please consult with your insurance company to find a nearby participating provider. Patient Education Materials: Chest Pain (Nonspecific) A MESSAGE TO ALL PATIENTS REGARDING OPIOIDS PRESCRIPTION OPIOIDS: WHAT YOU NEED TO KNOW Prescription opioids can be used to help relieve ysrdozmv-uv-zpohiz pain and are often prescribed following a surgery or injury, or for certain health conditions. These medications can be an important part of the treatment but also come with serious risks. It is important to work with your healthcare provider to make sure you are getting the safest, most effective care. WHAT ARE THE RISKS AND SIDE EFFECTS OF OPIOID USE? Prescription opioids carry serious risks of addiction and overdose, especially with prolonged use. An opioid overdose, often marked by slowed breathing, can cause sudden . The use of prescription opioids can have a number of side effects as well, even when taken as directed: ? Tolerance?meaning you might need to take more of the medication for the same pain relief ? Physical dependence?meaning you have symptoms of withdrawal when a medication is stopped ? Increased sensitivity to pain ? Constipation ? Nausea, vomiting, and dry mouth ? Sleepiness and dizziness ? Confusion ? Depression ? Low levels of testosterone that can result in lower sex drive, energy, and strength ? Itching and sweating RISKS ARE GREATER WITH: ? History of drug misuse, substance use disorder, or overdose ? Mental health conditions (such as depression or anxiety) ? Sleep apnea ? Older age (65 years and older) ? Avoid alcohol while taking prescription opioids. Also, unless specifically advised by your health care provider, medications to avoid include: ? Benzodiazepines (such as Xanax or Valium) ? Muscle relaxants (such as Soma or Flexeril) ? Hypnotics (such as Ambien or Lunesta) ? Other prescription opioids KNOW YOUR OPTIONS Talk to your health care provider about ways to manage your pain that don?t involve prescription opioids. Some of these options may actually work better and have fewer risks and side effects. Options may include: ? Pain relievers such as acetaminophen, ibuprofen, and naproxen ? Some medication that are also used for depression or seizures ? Physical therapy and exercise ? Cognitive behavioral therapy, a psychological, goal-directed approach, in which patients learn how to modify physical, behavioral, and emotional triggers of pain and stress. IF YOU ARE PRESCRIBED OPIOIDS FOR PAIN: ? Never take opioids in greater amounts or more often than prescribed. ? Follow up with your primary health care provider. o Work together to create a plan on how to manage your pain. o Talk about ways to help manage your pain that don?t involve prescription opioids. o Talk about any and all concerns and side effects. ? Help prevent misuse and abuse o Never sell or share prescription opioids. o Never use another person?s prescription opioids. ? Store prescription opioids in a secure place and out of reach of others (this may include visitors, children, friends, and family). ? Safely dispose of unused prescription opioids: Find your community drug take-back program or your pharmacy mail-back program, or flush them down the toilet, following guidance from the Food and Drug Administration (www.fda.gov/Drugs/Re sourcesForYou). ? Visit www.cdc.gov/drugoverd ose to learn about the risks of opioids abuse and overdose. ? If you believe you may be struggling (more content not included)... Normal [facility] PT & PTTon 08-24-2020 aPTT Coag (PPP) [Time] 30.2 second(s) Normal 25.1-36.5 [facility] Comment on above: Result Comment: Hepa rin therapeutic range (represented by Anti-Factor Xa activity of 0.2 - 0.4 U/mL) corresponds to PTT of 56.6 - 109.0 sec. Performed By: #### 1 [id number], [id number], 2598639, [id number], 8538327, 0059626, [id number], [id number] ####[facility] [address] [place] [address] INR Coag (PPP) [Relative time] 1.0 {INR} Invalid Interpretation Code [facility] Comment on above: Result Comment: INR results are specifically intended to assess patients stabilized on long-term Anticoagulation therapy suggested INR?s ?Less Intensive Anticoagulation? 2.0 ? 3.0 Conventional Range 3.0 ? 4.5 Performed By: #### 1 [id number], 5813454, 5920020, 44524199, 7400100, 0822843, 79274135, [id number] ####[facility] [address] [place] [address] PT Coag (PPP) [Time] 11.6 second(s) Normal 10.2-12.9 [facility] Comment on above: Performed By: #### 1 [id number], 8092956, 3484336, 56156201, 5281001, 6610402, 40463294, 90868143 ####[facility] [address] [place] [address] RAD - Preliminary Cat Scan R eporton 08-24-2020 RAD - Preliminary Cat Scan Report [id number] Normal [facility] Rapid COVID Antigen (MC)on 08-24-2020 Rapid COV Int NEG Ctl Pass Normal [facility] Comment on above: Performed By: #### 2 [id number] ####[facility] [address] [place] [address] Rapid COV Int POS Ctl Pass Normal [facility] Comment on above: Performed By: #### 2 [id number] ####[facility] [address] [place] [address] SARS-CoV-2 (COVID-19) RNA KATT+probe Ql (Unsp spec) Not detected Normal Not Detected [facility] Comment on above: Result Comment: The [employer]? System for Rapid Detection of SARS-CoV-2 is a chromatographic digital immunoassay intended for the direct and qualitative detection of SARS-CoV-2 nucleocapsid antigens in nasal swabs from individuals who are suspected of COVID-19 by their healthcare provider within the first five days of the onset of symptoms. Negative results should be treated as presumptive, do not rule out SARS-CoV-2 infection and should not be used as the sole basis for treatment or patient management decisions, including infection control decisions. Negative results should be considered in the context of a patient?s recent exposures, history and the presence of clinical signs and symptoms consistent with COVID-19, and confirmed with a molecular assay, if necessary, for patient management. For in vitro diagnostic use. In the [place], only for use under an Emergency Use Authorization. In the [place], this test has not been FDA cleared or approved; this test has been authorized by FDA under an EUA for use by authorized laboratories; use by laboratories certified under the CLIA, 42 U.S.C. ?263a, that meet requirements to perform moderate, high, or waived complexity tests and at the Point of Care (POC), i.e., in patient care settings operating under a CLIA Certificate of Waiver, Certificate of Compliance, or Certificate of Accreditation. This test has been authorized only for the detection of proteins from SARS-CoV-2, not for any other viruses or pathogens; and, in the [place], this test is only authorized for the duration of the declaration that circumstances exist justifying the authorization of emergency use of in vitro diagnostics for detection and/or diagnosis of the virus that causes COVID-19 under Section 564(b)(1) of the Act, 21 U.S.C. ? 360bbb-3(b)(1), unless the authorization is terminated or revoked sooner. Performed By: #### 2 [id number] ####[address] [place] [address] Employed in Healthcare NO Normal [facility] Comment on above: Performed By: #### 2 [id number] ####[address] [place] [address] First Test Unknown Normal [facility] Comment on above: Performed By: #### 2 [id number] ####[facility] [address] [place] [address] Hospitalized? NO Normal [facility] Comment on above: Performed By: #### 2 [id number] ####[address] [place] [address] ICU NO Normal [facility] Comment on above: Performed By: #### 2 [id number] ####[facility] [address] [place] [address] ? NO Normal [facility] Comment on above: Performed By: #### 2 [id number] ####[facility] [address] [place] [address] Resides in a Congregate Care Setting NO Normal [facility] Comment on above: Performed By: #### 2 [id number] ####[facility] [address] [place] [address] Symptomatic as defined by [facility] YES Normal [facility] Comment on above: Performed By: #### 2 [id number] ####[address] [address] Troponin 0 Hr.on 08-24-2020 Troponin I.cardiac [Mass/Vol] 4.10 pg/mL Low 15.90-38.40 [facility] Comment on above: Result Comment: The 95% CI (Confidence Interval) PPV (Positive Predictive Value) for myocardial infarction in females is 38 pg/mL, in males 51 pg/mL. The results should be used in conjunction with clinical conditions of myocardial infarction. (Access High Sensitivity Troponin I Instructions For Use, [employer] December 2017) Performed By: #### 1 [id number], 3380248, 1202763, 40588700, 0113220, 7742071, 26000062, 63335324 ####[facility] [address] [place] [address] Troponin 3 Hr.on 08-24-2020 Troponin I.cardiac [Mass/Vol] 4.40 pg/mL Low 15.90-38.40 [facility] Comment on above: Result Comment: The 95% CI (Confidence Interval) PPV (Positive Predictive Value) for myocardial infarction in females is 38 pg/mL, in males 51 pg/mL. The results should be used in conjunction with clinical conditions of myocardial infarction. (Access High Sensitivity Troponin I Instructions For Use, [employer] December 2017) Performed By: #### 1 [id number] ####[facility] [address] [place] [address] XR Chest Single Viewon 08-24 XR Chest Single View Exam Date/Time: 08/24/2020 01:04 EDT Reason for Exam: Cough Report IMPRESSION: THERE ARE NO FOCAL INFILTRATES OR EFFUSIONS. CLINICAL HISTORY: Cough COMPARISON: NONE. FINDINGS: The cardiomediastinal silhouette is unremarkable. The lungs are free of infiltrates effusions or consolidations. The bones and soft tissues are within normal limits. FINAL REPORT Dictated: 08/24/2020 8:19 am Tomer Reis MD, V. Signed (Electronic Signature): 08/24/2020 8:19 am Signed by: Tomer Reis MD, V. Transcribed by: VIVIAN Technologist: DAT Perry [facility] eGFRon 08-24-2020 GFR/1.73 sq M.predicted among blacks MDRD (S/P/Bld) [Vol rate/Area] mL/min/{1.73_m2} Normal >=59 [facility] Comment on above: Order Comment: Order added by Discern Expert. Result Comment: eGFR is race adjusted. AA=. Performed By: #### 1 [id number], 1587710, 2887893, 43030361, 4194844, 7175794, 04370886, 23813475 ####[facility] [address] [place] [address] GFR/1.73 sq M.predicted among non-blacks MDRD (S/P/Bld) [Vol rate/Area] mL/min/{1.73_m2} Normal >=59 [facility] Comment on above: Order Comment: Order added by Discern Expert. Result Comment: Case Planner jeniffer kidney disease could be indicated at eGFR's of less than 60 mL/min/1.73m2. Kidney failure is indicated at less than 15 mL/min/1.73m2. Performed By: #### 1 [id number], 5887452, 2198397, 35631145, 8549102, 6113464, 25212946, 52896686 ####[facility] [address] [place] [address] HIP RIGHT 1 OR 2 VWS WITH PE LVISon 07-24-2020 HIP RIGHT 1 OR 2 VWS WITH PELVIS [facility] Department of Radiology [address] [place] [id number] Patient Name: LILIANA MICHAELS : 1965 Sex: M Age: Race: White Pt. Location: Patient Status: Ordered Date: 07/24/2020 9:30:00 AM Completed Date: 07/24/2020 09:44 AM Requesting Provider: JEY ELISE Attending Provider: Report Copy To: Signs & Symptoms: Z96.641 Presence of right artificial hip joint I10 History: Comments: Views (X-RAY, HIP): Radiologic Protocol Exam: HIP RIGHT 1 OR 2 VWS WITH PELVIS HIP RIGHT 1 OR 2 VWS WITH PELVIS 07/24/2020 9:44 AM CLINICAL INDICATIONS: Z96.641 Presence of right artificial hip joint I10 TECHNOLOGIST COMMENTS: right hip surgery 03/14/20 follow up QUESTION FOR THE RADIOLOGIST: Views (X-RAY, HIP): Radiologic Protocol PROTOCOL: AP(PA) and Lateral views were obtained. COMPARISON: 04/24/2020 FINDINGS: Right total hip arthroplasty is appreciated. Single securing acetabular screw is noted. Hardware appears unchanged in position in the interval. No evidence of failure loosening. No dislocation. Postsurgical changes project over the expected region of the prostate gland. Pelvic ring is intact IMPRESSION: No acute hardware complication Electronically signed: Ana M Ponce. Transcribed by: [email or web address], User Resident: Electronically Signed by: ANA M PONCE @ 07/24/2020 10:01 AM Normal [facility] Comment on above: Order Comment: Views (X-RAY, HIP): Radiologic Protocol HIP RIGHT 1 OR 2 VWS WITH PE LVISon 04-24-2020 HIP RIGHT 1 OR 2 VWS WITH PELVIS [facility] Department of Radiology [address] [place] [id number] Patient Name: LILIANA MICHAELS : 1965 Sex: M Age: Race: White Pt. Location: Patient Status: D Ordered Date: 04/24/2020 10:40:00 AM Completed Date: 04/24/2020 10:48 AM Requesting Provider: JEY ELISE Attending Provider: Report Copy To: Signs & Symptoms: Z96.641 Presence of right artificial hip joint I10 History: [place] Comments: Views (X-RAY, HIP): Radiologic Protocol Exam: HIP RIGHT 1 OR 2 VWS WITH PELVIS HIP RIGHT 1 OR 2 VWS WITH PELVIS HISTORY: Hip replacement, follow-up. COMPARISON: 03/14/2020. IMPRESSION: 1. Redemonstrated hip prosthesis, no hardware complication or acute abnormality. Electronically signed: Ed España. Transcribed by: [email or web address], User Resident: Electronically Signed by: ED ESPAÑA @ 04/25/2020 08:22 AM Normal [facility] Comment on above: Order Comment: Views (X-RAY, HIP): Radiologic Protocol Operative Reporton 0 Operative Report MR#: [id number] [facility] Pt. Name: Liliana Michaels Room #: 6AB [id number] Discharge 03/15/2020 Date: Birthdate: 1965 OPERATIVE REPORT DATE OF SURGERY: 03/14/2020 SURGEON: Jey Elise MD PREOPERATIVE DIAGNOSIS: Right hip degenerative joint disease. POSTOPERATIVE DIAGNOSIS: Right hip degenerative joint disease. OPERATIVE PROCEDURE DONE: Right total hip arthroplasty through a direct anterior approach. ASSISTANTS: 1. David Pratt M.D. 2. Dontrell Gordillo SA. ESTIMATED BLOOD LOSS: 100 mL. ANESTHESIA: General anesthesia. COMPLICATIONS: None. CONDITION: Stable to PACU. IMPLANTS USED: 1. Biomet total hip arthroplasty system with a G7 acetabular shell 54 mm, one 6.5 mm cancellous screw, G7, E1 antioxidant infused poly liner +6, 36 mm inner diameter. 2. 36 mm ceramic head with a -6 mm neck length, Taperloc high offset femoral stem size 9 x 137 mm. INDICATIONS FOR THE PROCEDURE: The patient is a 55-year-old male patient with a history of longstanding hip pain. The patient had severe symptoms affecting his daily life activities and ability to walk. The patient failed conservative treatment in the form of activity modulation, PT, walking aid, and anti-inflammatory medications. X-rays showed significant degenerative joint disease, right hip. Recommendations were given for right total hip arthroplasty. All the risks and benefits of the procedure and possible complications including risk of infection, bleeding, injury to nerves and vessels, dislocation, leg length discrepancy, stiffness, femur fractures, blood clots to the legs or the lungs, medical complications, and possible revision surgery were all discussed. The patient understood the recommendations and agreed to proceed with surgery. An informed consent was obtained. SURGICAL DETAILS: The patient was identified in the preoperative holding area. His right lower extremity was examined and signed by indelible marker. All questions were answered and consents were signed. The patient was then taken back to the OR where he received general anesthesia. He was positioned in a supine position on the operating table on the radiolucent part of the table. His right lower extremity was prepped and draped in the standard sterile fashion. A complete surgical time-out was performed in my presence. I identified the patient, the site of the surgery, as well as the procedure to be done. Preoperative antibiotics and tranexamic acid were given per protocol. X-rays were up and all the necessary equipments were present in the room. We started by marking an incision for the direct anterior approach 3 fingers distal and lateral to the anterosuperior iliac spine. Dissection continued deeper all the way down to the fascia of the tensor fascia herminia muscle. The TFL fascia was opened and very carefully dissected. The medial edge of the TFL was bluntly identified and the muscle was retracted and protected. The underlying deep layer of the iliotibial band was opened identifying the underlying branches of the ascending branch of the lateral circumflex femoral vessels. The vessels were cauterized using an Aquamantys machine. Next, the rectus femoris muscle was identified and dissected and retracted medially. The reflected head of the rectus femoris muscle was transected to facilitate retraction. At this point, the pericapsular fat and iliocapsularis muscle were identified. The muscle was dissected and retracted. Good hemostasis was obtained using Aquamantys machine. At this point, Hohmann were inserted extracapsular along the superior aspect of the neck underneath the abductor muscle and the inferior aspect of the neck. A 3rd Hohmann retractor was inserted underneath the hip flexors over the anterior lip of the acetabulum. At this point, the capsule was incised in an I-shaped fashion. The capsule opening was done, exposing the underlying femoral neck. At this point under x-rays, femoral neck cut was done using a power saw. A napkin ring cut was done to facilitate removal of the head. Using a corkscrew, the head was removed. Head was prepared on the back table, was examined and measured. There was significant amount of head deformation, complete full-thickness cartilage loss, eburnation of the articular cartilage, as well as osteophytes. At this point, the Hohmanns were inserted around the acetabulum. The remnant of the labrum was removed. The tissues in the floor of the acetabulum were also removed. There was significant amount of arthritis on the acetabular surface as well as osteophyte formation. At this point, the acetabular fossa was identified and using a small reamer, we reamed medial to medialize the cup. Reaming continued down to the outer layer of the teardrop and was checked under x-rays. Once we had enough medialization, we started using and sequentially increasing size reamers in the correct a (more content not included)... Normal [facility] BASIC METABOLIC PANELon 11-0 Calcium [Mass/Vol] 8.8 mg/dL Normal 8.6-10.3 [facility] Comment on above: Order Comment: Views (X-RAY, HIP): Radiologic Protocol Performed By: #### 0 0071 ####[facility] [place] [address], [facility] Chloride [Moles/Vol] 98 mmol/L Normal 98-107 [facility] Comment on above: Order Comment: Views (X-RAY, HIP): Radiologic Protocol Performed By: #### 0 0071 ####[facility] [place] [address], [facility] CO2 [Moles/Vol] 30 mmol/L Normal 21-31 [facility] Comment on above: Order Comment: Views (X-RAY, HIP): Radiologic Protocol Performed By: #### 0 0071 ####[place] [id number] Creatinine [Mass/Vol] 0.96 mg/dL Normal 0.70-1.30 [facility] Comment on above: Order Comment: Views (X-RAY, HIP): Radiologic Protocol Performed By: #### 0 0071 ####[facility] GFR/1.73 sq M.predicted among blacks MDRD (S/P/Bld) [Vol rate/Area] mL/min/{1.73_m2} Normal >60 [facility] Comment on above: Order Comment: Views (X-RAY, HIP): Radiologic Protocol Performed By: #### 0 0071 ####[facility] [place] [address], [facility] GFR/1.73 sq M.predicted among non-blacks MDRD (S/P/Bld) [Vol rate/Area] mL/min/{1.73_m2} Normal >60 [facility] Comment on above: Order Comment: Views (X-RAY, HIP): Radiologic Protocol Performed By: #### 0 0071 ####[facility] Glucose [Mass/Vol] 151 mg/dL High 70-100 [facility] Comment on above: Order Comment: Views (X-RAY, HIP): Radiologic Protocol Performed By: #### 0 0071 ####[place] [id number] Potassium [Moles/Vol] 4.4 mmol/L Normal 3.5-5.1 [facility] Comment on above: Order Comment: Views (X-RAY, HIP): Radiologic Protocol Performed By: #### 0 0071 ####[facility] Sodium [Moles/Vol] 133 mmol/L Low 136-145 [facility] Comment on above: Order Comment: Views (X-RAY, HIP): Radiologic Protocol Performed By: #### 0 0071 ####[facility] Urea nitrogen [Mass/Vol] 20 mg/dL Normal 7-25 [facility] Comment on above: Order Comment: Views (X-RAY, HIP): Radiologic Protocol Performed By: #### 0 0071 ####[address] CBC COMPLETE BLOOD COUNTon 05-15-2019 Erythrocyte distribution width (RBC) [Ratio] 12.2 % Normal 11.5-15.0 [facility] Comment on above: Order Comment: No: D o not add to previous draw Performed By: #### 5 0608 #### [facility] [address] [place] [address], [facility] Hematocrit (Bld) [Volume fraction] 42.2 % Normal 39.0-50.0 [facility] Comment on above: Order Comment: No: D o not add to previous draw Performed By: #### 5 0608 #### [facility] [address] [place] [address], [facility] Hemoglobin (Bld) [Mass/Vol] 13.9 g/dL Normal 13.0-17.0 [facility] Comment on above: Order Comment: No: D o not add to previous draw Performed By: #### 5 0608 #### [facility] [address] [place] [address], [facility] MCH (RBC) [Entitic mass] 31.4 pg Normal 27.0-33.0 [facility] Comment on above: Order Comment: No: D o not add to previous draw Performed By: #### 5 0608 #### [facility] [address] [place] [address], [facility] MCHC (RBC) [Mass/Vol] 32.9 g/dL Normal 32.0-35.0 [facility] Comment on above: Order Comment: No: D o not add to previous draw Performed By: #### 5 0608 #### [facility] [address] [place] [address], [facility] MCV (RBC) [Entitic vol] 95.5 fL Normal 82.0-98.0 [facility] Comment on above: Order Comment: No: D o not add to previous draw Performed By: #### 5 0608 #### [facility] [address] [facility] [place] [address], [facility] Nucleated RBC/100 WBC (Bld) [Ratio] 0 % Normal 0-0 [facility] Comment on above: Order Comment: No: D o not add to previous draw Performed By: #### 5 0608 #### [facility] [address] [place], [place] [address], [facility] PLAT CNT 254 10*3/uL Normal 150-400 [facility] Comment on above: Order Comment: No: D o not add to previous draw Performed By: #### 5 0608 #### [facility] [address] [place] [address], [facility] RBC (Bld) [#/Vol] 4.42 10*6/uL Normal 4.20-5.70 [facility] Comment on above: Order Comment: No: D o not add to previous draw Performed By: #### 5 0608 #### [facility] [address] [facility] [place] [address], [facility] WBC (Bld) [#/Vol] 14.44 10*3/uL High 4.00-10.[address] [facility] Comment on above: Order Comment: No: D o not add to previous draw Performed By: #### 5 0608 #### [facility] [address] [place] [address], [facility] POC GLUCOSE LABon 03-15-2020 Glucose [Mass/Vol] 193 mg/dL High 70-100 [facility] Comment on above: Performed By: #### 8 [id number] #### [facility] [address] [facility] [place] [address], [facility] CBC W/DIFFon 03-14-2020 ABS IMM GRANS 0.2 10*3/uL Normal 0.0-0.2 [facility] Comment on above: Performed By: #### 5 0103 ####[facility] [facility] [place] [address], [facility] ABS NEUTROPHILS 8.0 10*3/uL High 1.6-7.6 The [facility] Comment on above: Performed By: #### 5 0103 ####[facility] [facility] [place] [address], [facility] Basophils (Bld) [#/Vol] 0.1 10*3/uL Normal 0.0-0.2 [facility] Comment on above: Performed By: #### 5 0103 ####[facility] [place] [address], [facility] Basophils/100 WBC (Bld) 1.1 % High 0.0-1.0 [facility] Comment on above: Performed By: #### 5 0103 ####[facility] [facility] [place] [address], [facility] Eosinophils (Bld) [#/Vol] 0.3 10*3/uL Normal 0.0-0.5 [facility] Comment on above: Performed By: #### 5 0103 ####[place] [address] [facility] [place] [address], [facility] Eosinophils/100 WBC (Bld) 2.7 % Normal 0.0-6.0 [facility] Comment on above: Performed By: #### 5 3 ####[place] [address] Erythrocyte distribution width (RBC) [Ratio] 12.3 % Normal 11.5-15.0 [facility] Comment on above: Performed By: #### 5 3 ####[facility] [facility] [place] [address], [facility] Hematocrit (Bld) [Volume fraction] 50.5 % High 39.0-50.0 [facility] Comment on above: Performed By: #### 5 3 ####[facility] [facility] [place] [address], [facility] Hemoglobin (Bld) [Mass/Vol] 17.3 g/dL High 13.0-17.0 [facility] Comment on above: Performed By: #### 5 3 ####[facility] IMMATURE GRANS 1.4 % High 0.0-1.0 [facility] Comment on above: Performed By: #### 5 0103 ####[facility] [place] [address] Lymphocytes (Bld) [#/Vol] 1.8 10*3/uL Normal 1.2-4.0 [facility] Comment on above: Performed By: #### 5 3 ####[address] Lymphocytes/100 WBC (Bld) 15.6 % Low 20.0-45.0 [facility] Comment on above: Performed By: #### 5 102 ####[address] MCH (RBC) [Entitic mass] 31.7 pg Normal 27.0-33.0 [facility] Comment on above: Performed By: #### 5 102 ####[address] MCHC (RBC) [Mass/Vol] 34.3 g/dL Normal 32.0-35.0 [facility] Comment on above: Performed By: #### 5 3 ####[address] MCV (RBC) [Entitic vol] 92.7 fL Normal 82.0-98.0 [facility] Comment on above: Performed By: #### 5 3 ####[address] Monocytes (Bld) [#/Vol] 0.9 10*3/uL Normal 0.1-1.0 [facility] Comment on above: Performed By: #### 5 3 ####[facility] [facility] [place] [address], [facility] MONOS 8.2 % Normal 5.0-12.0 [facility] Comment on above: Performed By: #### 5 0103 ####[facility] [facility] [place] [address], [facility] Neutrophils/100 WBC (Bld) 71.0 % Normal 40.0-72.0 [facility] Comment on above: Performed By: #### 5 0103 ####[facility] [facility] [place] [address], [facility] Nucleated RBC/100 WBC (Bld) [Ratio] 0 % Normal 0-0 [facility] Comment on above: Performed By: #### 5 0103 ####[facility] [facility] [place] [address], [facility] PLAT CNT 301 10*3/uL Normal 150-400 [facility] Comment on above: Performed By: #### 5 0103 ####[facility] [facility] [place] [address], [facility] RBC (Bld) [#/Vol] 5.45 10*6/uL Normal 4.20-5.70 [facility] Comment on above: Performed By: #### 5 0103 ####[facility] [facility] [place] [address], [facility] WBC (Bld) [#/Vol] 11.22 10*3/uL High 4.00-10.60 [facility] Comment on above: Performed By: #### 5 0103 ####[facility] [facility] [place] [address], [facility] HIP RIGHT 1 OR 2 VWS WITH PE LVISon 03-14-2020 HIP RIGHT 1 OR 2 VWS WITH PELVIS [facility] Department of Radiology [address] [place] [address] Patient Name: LILIANA MICHAELS : 1965 Sex: M Age: Race: White Pt. Location: OUTP Patient Status: O Ordered Date: 03/14/2020 6:40:00 AM Completed Date: 03/14/2020 10:47 AM Requesting Provider: JEY ELISE Attending Provider: JEY ELISE Report Copy To: Signs & Symptoms: RT FOREIGN History: Comments: RT FOREIGN Exam: HIP RIGHT 1 OR 2 VWS WITH PELVIS HIP RIGHT 1 OR 2 VWS WITH PELVIS 03/14/2020 10:47 AM CLINICAL INDICATIONS: RT FOREIGN TECHNOLOGIST COMMENTS: Dr. Elise used .44 min of gold fluoro time rt hip arthroplasty QUESTION FOR THE RADIOLOGIST: RT FOREIGN PROTOCOL: AP(PA) and Lateral views were obtained. COMPARISON: None FINDINGS: Multiple spot fluoroscopic images demonstrate placement of right total hip arthroplasty. Dictation for documentation purposes IMPRESSION: Multiple spot fluoroscopic images demonstrate placement of right total hip arthroplasty. Dictation for documentation purposes Electronically signed: Aria Baig. Transcribed by: [email or web address], User Resident: Electronically Signed by: ARIA BAIG @ 03/14/2020 03:44 PM Normal [facility] Comment on above: Order Comment: RT TH A POC GLUCOSE LABon 03-14-2020 Glucose [Mass/Vol] 222 mg/dL High 70-100 [facility] Comment on above: Performed By: #### 8 5499 #### [facility] [address] [place] [address], [facility] Glucose [Mass/Vol] 217 mg/dL High 70-[address] [facility] Comment on above: Performed By: #### 8 5499 ####[facility] [place] [address], [place] Glucose [Mass/Vol] 141 mg/dL High 70-[address] [facility] Comment on above: Performed By: #### 8 5499 #### [facility] [address] [facility] [place] [address], [facility] PORTABLE HIP RIGHT 1 OR 2 VW S WITH PELVISon 03-14-2020 PORTABLE HIP RIGHT 1 OR 2 VWS WITH PELVIS [facility] Department of Radiology [address] [place] [id number] Patient Name: LILIANA MICHAELS : 1965 Sex: M Age: Race: White Pt. Location: OUTP Patient Status: O Ordered Date: 03/14/2020 10:30:00 AM Completed Date: 03/14/2020 11:36 AM Requesting Provider: DAVID PRATT Attending Provider: JEY ELISE Report Copy To: Signs & Symptoms: Post OP History: Comments: Hardware Evaluation, AP/Lateral Exam: PORTABLE HIP RIGHT 1 OR 2 VWS WITH PELVIS PORTABLE HIP RIGHT 1 OR 2 VWS WITH PELVIS 03/14/2020 11:36 AM CLINICAL INDICATIONS: Post OP TECHNOLOGIST COMMENTS: post-op right foreign check hardware right hip pain QUESTION FOR THE RADIOLOGIST: Hardware Evaluation, AP/Lateral PROTOCOL: AP(PA) and Lateral views were obtained. COMPARISON: March 14, 2020 FINDINGS: Right total hip arthroplasty. Anatomic alignment. No periprosthetic fracture or loosening. Immediate postsurgical soft tissue swelling and air IMPRESSION: Right total hip arthroplasty. Anatomic alignment. No periprosthetic fracture or loosening. Immediate postsurgical soft tissue swelling and air Electronically signed: Aria Baig. Transcribed by: [email or web address], User Resident: Electronically Signed by: ARIA BAIG @ 03/14/2020 03:46 PM Normal [facility] Comment on above: Order Comment: Hardw are Evaluation, AP/Lateral TYPE AND SCREENon 03-14-2020 ABO INTERPRETATION O Normal [facility] Comment on above: Performed By: #### 6 2586 ####[facility] [facility].[address] RH INTERPRETATION Positive Normal [facility] Comment on above: Performed By: #### 6 2586 ####[facility] [facility].[address] Vital Signs Date Time Vital Sign Value Performing Clinician Alisha pearson 07-14-2022 10:57-0500 Body height 162.56 cm Ishmael Simon [facility]: [facility] DO Work Phone: 07-14-2022 10:57-0500 Body mass index (BMI) [Ratio] 32.96 kg/m2 Ishmael Simon [facility]: [facility] DO Work Phone: 07-14-2022 10:57-0500 Body surface area Derived from formula 1.92 m2 Ish[facility]el [facility] Work Phone: 07-14-2022 10:57-0500 Body weight 87.09 kg Ishmael A Naderer [facility]: [facility] DO Work Phone: 07-14-2022 10:57-0500 Diastolic blood pressure 64 mm[Hg] Ishmael A Naderer Work Phone: [facility] DO Work Phone: 07-14-2022 10:57-0500 Heart rate 34 /min Ishmael Rae Naderer Work Phone: [facility] DO Work Phone: 07-14-2022 10:57-0500 Systolic blood pressure 118 mm[Hg] Ishmael Rae Naderer Work Phone: [facility] 600 DO Work Phone: 01-28-2022 09:37-0400 Body height 162.56 cm Ishmael Rae Naderer Work Phone: [facility] 600 DO Work Phone: 01-28-2022 09:37-0400 Body mass index (BMI) [Ratio] 30.9 kg/m2 Ishmael Rae Naderer Work Phone: [facility] 600 DO Work Phone: 01-28-2022 09:37-0400 Body surface area Derived from formula 1.87 m2 Ishmael Rae Naderer Work Phone: [facility] 600 DO Work Phone: 01-28-2022 09:37-0400 Body weight 81.65 kg Ishmael A Naderer Work Phone: [facility] 600 DO Work Phone: 01-28-2022 09:37-0400 Diastolic blood pressure 50 mm[Hg] Ishmael A Naderer Work Phone: [facility] DO Work Phone: 01-28-2022 09:37-0400 Heart rate 41 /min Ishmael Simon Work Phone: [facility] 600 DO Work Phone: 01-28-2022 09:37-0400 Systolic blood pressure 112 mm[Hg] Ishmael Simon Work Phone: [facility] 600 DO Work Phone: Encounters Encounter Date Encounter Type Care Provider Facility Start: 04-13-2023 End: 04-13-2023 ambulatory ISHMAEL SIMON Not Available Start: 10-14-2022 ambulatory NARENDRANATH LAKSHMIPATHY . Facility: Start: 09-14-2022 End: 09-14-2022 ambulatory NARENDRANATH LAKSHMIPATHY . Facility: Start: 08-31-2022 End: 09-01-2022 ambulatory NARENDRANATH LAKSHMIPATHY . Facility:[facility]1 Start: 08-04-2022 End: 08-05-2022 ambulatory NARENDRANATH LAKSHMIPATHY . Facility:[facility]1 Start: 07-23-2022 End: 08-07-2022 ambulatory NARENDRANATH LAKSHMIPATHY . Facility:[facility] Start: 07-20-2022 End: 07-21-2022 ambulatory NARENDRANATH LAKSHMIPATHY . Facility:[facility]1 Start: 07-15-2022 End: 07-16-2022 ambulatory AMINA KHANH . Facility:[facility] Start: 07-14-2022 Office outpatient vi sit 15 minutes Ishmael Simon Work Phone: [facility] 600 DO Work Phone: Start: 07-14-[address] Valentino Ferrer Facility: Start: 07-13-[address] RICKY IBARRA . Faci lity:H1 Start: 06-11-2022 End: 06-12-[address] ISHMAEL SIMON Facility:[facility]1 Start: 05-07-2022 End: 05-08-[address] ISHMAEL SIMON Facility:[facility]1 Start: 05-07-2022 End: 05-08-[address] ISHMAEL SIMON Facility:[facility]1 Start: 04-12-2022 End: 04-12-[address] ISHMAEL SIMON Facility:[facility]1 Start: 02-16-2022 Chart Update Ishmael Simon Work Phone: [facility] 250 DO Work Phone: Start: 02-15-[address] Valentino Ferrer Facility:[id number] Start: 01-28-[address] Ishmael Simon Facility: Start: 01-28-2022 Office consultation new/estab patient 60 min Ishmael Simon Work Phone: [facility] 600 DO Work Phone: Start: 01-14-2022 End: 01-15-2022 ambulatory TERESO COLMENARES . Facility:H1 Start: 01-01-2022 End: 01-02-[address] ISHMAEL SIMON Facility:[facility]1 Start: 12-15-2021 End: 12-15-[address] RICKY IBARRA . Facility:[facility]1 Start: 12-14-2021 Encounter for preprocedural laboratory examination DR RICKY IBARRA . [facility] Start: 12-12-2021 End: 12-13-[address] ISHMAEL SIMON Facility:[facility]1 Start: 12-12-2021 End: 12-13-2021 Encounter for preprocedural laboratory examination DR ISHMAEL SIMON Facility:[facility]1 Start: 12-08-2021 End: 12-08-[address] RICKY IBARRA . Facility:[facility]1 Start: 12-04-2021 End: 12-05-[address] ISHMAEL SIMON Facility:[facility]1 Start: 11-19-2021 End: 11-20-2021 ambulatory TERESO COLMENARES . Facility:[facility]1 Start: 11-03-2021 End: 11-03-[address] RICKY IBARRA . Facility:[facility]1 Start: 10-22-2021 End: 10-23-[address] RICKY IBARRA . Facility:[facility]1 Start: 10-13-2021 End: 10-13-[address] RICKY IBARRA . Facility: Start: 10-01-2021 End: 10-02-2021 ambulatory TERESO COLMENARES . Facility: Start: 10-01-2021 End: 10-02-2021 ambulatory TERESO COLMENARES . Facility: Start: 10-03-2020 End: 10-04-2020 ambulatory SIMONE RUIZ Facility:[facility] Start: 03-26-2020 End: 04-10-2020 ambulatory JEY ELISE Facility:[facility] Start: 03-14-2020 End: 03-15-2020 ambulatory JEY R NILDA Facility:[facility] Procedures Date Procedure Procedure Detail Performing Clinician Start: 05-07-[address] ISHMAEL CROUCH Comment on above: Performed By: #### V ITAD, PSASC #### [facility] [address] [place] [address] Dr. Britt Mendoza Start: 03-15-2020 ANESTH HIP ARTHROPLASTY SIMONE RUIZ Start: 03-15-2020 TOTAL HIP ARTHROPLASTY JEY Marilee ELISE Start: 03-14-2020 Antibody screen SIMONE BOLIVAR Comment on above: Performed By: #### 6 2586 ####[place] [id number] Colonoscopy Ishmael A Naderer Work Phone: Excision of cyst Ishmael Rae Nade rer Work Phone: Hernia repair Ishmael A Naderer Work Phone: Operation on urinary system Ishmael A Naderer Work Phone: Surgical repair of u pper extremity Ishmael A Naderer Work Phone: Total replacement of hip Mar c A Naderer Work Phone: Plan of Treatment Date Care Activity Detail Author Start: 07-13-2023 FUV, Provider: Valentino Ferrer, Status: Pen, Time: 8:30 AM FUV, Provider: Valentino Ferrer, Status: Pen, Time: 8:30 AM [facility] 600 DO Work Phone: Start: 07-14-2022 FUV, Provider: Valentino Ferrer, Status: Pen, Time: 10:40 AM FUV, Provider: Valentino Ferrer, Status: Pen, Time: 10:40 AM [facility] 600 DO Work Phone: Start: 02-15-2022 STRESS JUICE, Provider : CARLITO MCKEONI NUCLEAR 01,[id number], Status: Pen, Time: 2:00 PM STRESS JUICE, Provider: CARLITO MCKEONI NUCLEAR 01,[id number], Status: Pen, Time: 2:00 PM [facility] 600 DO Work Phone: Payers Date Payer Category Payer Unknown [id number] 2.16.8 [id number] 1965 Unknown [id number] 2.16.8 40.1.923688.3.579.2.647 1965 Unknown [id number] 2.16.8 40.1.325351.3.579.2.647 1964 Unknown [id number] 2.16.8 40.1.423947.3.579.2.1068 1964 Unknown [id number] 2.16. 840.1.257486.3.579.2.356 1965 Unknown [id number] 2.16. 840.1.419212.3.579.2.356 1964 Unknown [id number] 2.16.84 0.1.028037.3.579.2.593 1964 Unknown [id number] 2.16.84 0.1.047695.3.579.2.593 1964 Unknown [id number] 2.16.84 0.1.554202.3.579.2.593 1964 Unknown [id number] 2.16.84 0.1.256440.3.579.2.593 1964 Unknown [id number] 2.16.84 0.1.129616.3.579.2.593 1964 Unknown [id number] 2.16.84 0.1.563233.3.579.2.593 1964 Unknown [id number] 2.16.84 0.1.040022.3.579.2.593 1964 Unknown [id number] 2.16.84 0.1.364446.3.579.2.593 1964 Unknown [id number] 2.16.84 0.1.210597.3.579.2.593 1964 Unknown [id number] 2.16.84 0.1.064495.3.579.2.593 1964 Unknown [id number] 2.16.84 0.1.914752.3.579.2.593 1964 Unknown [id number] 2.16.84 0.1.722900.3.579.2.593 1964 Unknown [id number] 2.16.84 0.1.657962.3.579.2.593 1964 Unknown [id number] 2.16.84 0.1.526387.3.579.2.593 1964 Unknown [id number] 2.16.84 0.1.037169.3.579.2.593 1964 Unknown [id number] 2.16.84 0.1.744301.3.579.2.593 1964 Unknown [id number] 2.16.84 0.1.123548.3.579.2.593 1964 Unknown [id number] 2.16.84 0.1.024288.3.579.2.593 1964 Unknown [id number] 2.16.84 0.1.059237.3.579.2.593 1964 Unknown [id number] 2.16.84 0.1.653908.3.579.2.593 1964 Unknown [id number] 2.16.84 0.1.622455.3.579.2.593 1964 Unknown [id number] 2.16.84 0.1.139864.3.579.2.593 1964 Unknown [id number] 2.16.84 0.1.426052.3.579.2.593 1964 Unknown [id number] 2.16.84 0.1.744504.3.579.2.593 1964 Unknown [id number] 2.16.840 .1.062440.3.579.2.1259 1960 Medicaid [id number] 1960 Medicare [id number] Unknown [id number] Unknown Social History Date Type Detail Facility No alcohol use No alcohol use [facility] [employer] DO Work Phone: Comment on above: 1 pack daily; Clinical Notes 08-31-2020 to 07-20-2022 Note Date & Type Note Facility 07-20-2022 Note CONSULTATION PROCEDURE DATE: 07/20/2022 Procedure was performed in the office. PROCEDURE: Right obturator nerve injection. PREOPERATIVE DIAGNOSIS: 1. Pain secondary to neuritis right obturator nerve. 2. Dystonic change right adductor kermit muscle. IMMEDIATE COMPLICATIONS: None. SOLUTION USED FOR INJECTION: 2 mL of 2% lidocaine, 2 mL of 0.25% Marcaine. No steroid solution was used throughout the procedure. PROCEDURE: After informed consent was obtained from the patient, placed in the supine position with the right hip slightly flexed and adducted. There appeared to be dysesthesia and hypoesthesia along the distribution of the right obturator nerve. The patient also had severe myofascial dysfunction, bordering on dystonic changes involving the right adductor kermit. A 25 gauge, 1.5 needle was inserted over the right obturator nerve, following the adductor canal, approximately 10 cm proximal from the level of the right medial femoral epicondyle. Needle tip was inserted and advanced until there was mild paresthesia. We re-directed the needle tip and the paresthesia completely resolved, and no indication of intravascular or intraneural needle tip placement or injection was noted After test dose, 1.5 mL of solution was injected. Post procedure, the needle was remodel. Patient reports dramatic reduction in pain symptoms along his right knee as well as right medial portion of his leg. [facility] 05-07-2022 Note CONSULTATION CONSULTATION DATE: 05/07/2022 HISTORY OF PRESENT ILLNESS: This is a 57-year-old gentleman who returns to the clinic for a three month follow up for his chronic lower back pain. Patient had radiofrequency ablations of his lower lumbar area of L1, L2 and L3, L4 in December of this year. Patient feels excessively well today. His pain level is 0. His pain does increase if he is lying in bed past 4 hours, and then he has difficulty standing and pivoting. He is under the care of Dr. Londono for his bilateral carpal tunnel. He does have bilateral neuropathic pain to his hands. In regards his back, he feels he is overall doing well and has not had any loss of control of his right foot like he did prior. Medications include gabapentin 300 mg q.h.s., Vitamin D, nabumetone 500 mg b.i.d., Percocet 7.5/325 q. 6 and baclofen 10 mg q.h.s. Patient's REVIEW OF SYSTEMS / PAST MEDICAL HISTORY / ALLERGIES and IMAGES have been reviewed and noted in the chart. PHYSICAL EXAM: VITAL SIGNS: Blood pressure 119/73, heart rate is 47. Temperature is 97.5. He is 5'4 , weighs 84 kg. GENERAL IMPRESSION: Pleasant, appropriate, in no acute distress. FOCUSED EXAM - BACK: Range of motion is functional in lateral rotation and flexion/extension. Paravertebral muscles are taut bilaterally. No reproduction of spinal axial pain upon compression along the lower lumbar facets. There is no radiating pain at this time. MUSCULOSKELETAL: Motor is intact, 4/5 bilaterally. Patient walks unassisted with a steady gait. 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 Lower extremity radicular sensory is intact. DIAGNOSIS: Lumbar spondylosis, lumbar degenerative disc disease, lumbar spasm and chronic lower back pain. PLAN: We will refill his baclofen at 10 mg q.h.s. His PCP fills the remainder of medications. He is to continue with heat and exercise as the weather permits. We will see the patient in three months' time unless otherwise indicated. [facility] 01-14-2022 Note CONSULTATION CONSULTATION DATE: 01/14/2022 HISTORY OF PRESENT ILLNESS: This is a 56-year-old man, returning to the clinic status post bilateral lumbar RFA of L1, L2 and L3, L4 completed on 12/15/2021. The patient is reporting 100% relief and is very pleased with the results. He is complaining today of some residual left lumbar pain he describes as sore and tight. He is describing some allodynia to that region as well as what he describes an occasional spasm. Prior to the procedure, he had sharp, shooting pain down his right leg, which has been completely mitigated. Patient has had, in the clinic, consistent low heart rate, and it was recommended that he see a finish remover, which he did do. He did a Holter monitor study and is following up with his finish remover on 01/28/2022. Current medications include gabapentin 300 mg q.h.s., nabumetone 500 mg b.i.d., Percocet 7.5/325 q.i.d. and baclofen 10 mg q.h.s. Activities that aggravate his pain today are prolonged sitting, standing, walking and transitioning positions. He does not use heat or ice. Sitting decreases his pain. Patient's REVIEW OF SYSTEMS / PAST MEDICAL HISTORY / ALLERGIES and IMAGES have been reviewed and they are noted on the chart. PHYSICAL EXAM: Blood pressure 108/64, heart rate is 41. Temperature is 97.8. He is 5'4 and weighs 81.5 kg. GENERAL APPEARANCE: Pleasant, appropriate, in no acute distress. FOCUSED EXAM - BACK: Range of motion is functional and non-tender to lateral rotation and flexion/extension. Paravertebral muscles are taut with slight spasming noted to left lateral lumbar region at the L5 region. Patient does have allodynia to that region. Compression along left lumbar muscle reproduces the patient's pain today. Omi's point is non-tender bilaterally,. MUSCULOSKELETAL: Motor is intact, 4/5 bilaterally. Patient walks with a stable gait, does not use an assistive device. NEUROLOGICAL: Radicular sensory is intact to bilateral lower extremities. +2 patellar reflexes. DIAGNOSIS: Lumbar degenerative disc disease, lumbar spondylosis, chronic lower back pain and lumbar spasms. PLAN: His baclofen 10 mg q.h.s. will be refilled today. I did recommend using Solarcaine to his skin area, and it is explained that this allodynia will mitigate itself as time goes on. Stretches were demonstrated for the patient for his left lumbar area, and he was encouraged to use his Icy Hot and heating pad twice a day. Patient will be brought back to the office in three months' time unless otherwise indicated. Patient agrees with the plan of care. [facility] 11-19-2021 Note CONSULTATION CONSULTATION DATE: 11/19/2021 This is a 56-year-old gentleman who returns to the clinic status post #2 bilateral MBB of L1, L2 and L3, L4 completed on 11/03/2021. The patient stated he received moderate relief for approximately 1-2 hours, the day of the procedure to his right thigh and right groin. His pain did decrease to 2 out of 10. Today he reports at baseline which is 5-6 out of 10, especially with activity. He does report a new pain pattern to his left groin and anterior thigh. The patient is concerned that this is new pain and is unsure if it was brought on by his last procedure. The patient does have significant discogenic pathology bilaterally to his lumbar from L1 to S1. 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 Sitting, lying and sleeping decreases his pain. Current medications include gabapentin 300 mg q.h.s., nabumetone 5000 mg b.i.d., ibuprofen and Percocet 7.5/325 q.i.d. REVIEW OF SYSTEMS, PAST MEDICAL HISTORY, ALLERGIES AND IMAGES: Have been reviewed and noted in the chart. PHYSICAL EXAM: VITAL SIGNS: Blood pressure 123/73, heart rate is 40, temperature is 97.3. Height is 5'4 , weighs 80.2 kg. GENERAL APPEARANCE: Appropriate, No acute distress. FOCUSED EXAM: BACK: Range of motion is guarded in lateral rotation and flexion/extension. Reproduction of the patient's pain symptomatology to direct compression along L1, L2 and L3, L4 bilaterally, right greater than left. Referral pain along the bilateral hips and to the groin. Omi's point is nontender bilaterally. Jayant's compression and thigh thrust tests are negative. MUSCULOSKELETAL: Motor is intact, 4 out of 5 bilaterally. The patient walks with a steady gait and does not assistive devices. NEUROLOGICAL: Patchy hypesthesia noted along L1, L2, L3 bilaterally. Plus 1 bilateral patellar reflexes. DIAGNOSIS: Lumbar spondylosis, lumbar degenerative disk, spinoaxial lower back pain, lumbar radiculitis. PLAN: We will move forward to authorize radiofrequency ablation, starting with the right side of L1, L2 and L3, L4 and subsequently move to the left. He is to continue with his Backofen 10 mg q.h.s. in addition to heat rub and stretches. His current dose of Percocet is 7.5 q.i.d. We will look to decrease to 5/325 during the next refill and after the patient is made aware. The patient agrees with the plan of care and would like to move forward and will be followed up in the clinic post-procedure. [facility] Signed and Approved by: TERESO COLMENARES . 11/27/2021 14:13:00 [facility] 10-22-2021 Note CONSULTATION CONSULTATION DATE: 10/22/2021 HISTORY OF PRESENT ILLNESS: This patient is an add-on today at the patient's request. This is a 56-year-old male who is status post #1 bilateral MBB of L1, L2 and L3, L4 completed on 10/13/2021 that gave him 90% relief for one day. The reason the patient wanted to come into the clinic today was for new neck pain with lateral rotation and extension. The patient was concerned that his neck pain was directly related to his lumbar MBBs. During the time the patient had increased pain relief, he stated he went fishing, walked 20 minutes on the treadmill and overall felt great. His right lower extremity, groin and radicular pain was greatly decreased. Patient also shared he read the yellow paper following the procedure stating that it requested the patient to call the office if he developed in any new neck pain or back pain. He correlated the neck pain to his MBB procedure. Current medications include gabapentin 300 mg q.h.s., nabumetone 500 mg b.i.d. and Percocet 7.5/325 q.i.d. per his PCP. Activities that aggravate his pain are standing, walking, stairs and bending. Sitting in the recliner and lying down decrease his pain. Patient's REVIEW OF SYSTEMS / PAST MEDICAL HISTORY / ALLERGIES and IMAGES have been reviewed and they are noted on the chart. PHYSICAL EXAM: VITAL SIGNS: Blood pressure 116/58, heart rate is 55. Temperature is 97.7. He is 5'4 and weighs 78.5 kg. GENERAL APPEARANCE: No acute distress, pleasant and appropriate. FOCUSED EXAM - NECK: Range of motion is functional in lateral rotation and flexion/extension. Reproduction of patient's pain symptomatology to direct compression along the cervical trapezius muscles. No reproduction of facet pain to direct compression along posterior elements of the cervical spine. BACK: Range of motion is slightly guarded in lateral rotation and flexion/extension. Reproduction of patient's pain symptomatology to direct compression of the lumbar facets of L1, L2 and L3, L4 bilaterally. Pain does not radiate below the knees. Omi's point is non-tender bilaterally. MUSCULOSKELETAL: Motor is intact, 4/5 bilaterally. The patient walks with an antalgic gait. Does not use assistive device. NEUROLOGICAL: Negative polyneuropathy. Bilateral patellar and Achilles reflexes are intact. IMPRESSION: Lumbar spondylosis, lumbar degenerative disc, spinal axial lower back pain and cervicalgia. PLAN: We will restart the patient on baclofen 10 mg q.h.s. We will pre-authorize for #2 bilateral MBB of L1, L2 and L3, L4. The patient was given education regarding the occurrence of his neck pain with having no relation to his lumbar procedures. Heat rub and stretches were encouraged. Patient will follow up in the clinic post procedure, and patient agrees with the plan of care. [facility] Signed and Approved by: TERESO COLMENARES . 11/04/2021 16:23:00 [facility] 10-01-2021 Note CONSULTATION CONSULTATION DATE: 10/01/2021 HISTORY OF PRESENT ILLNESS: This is a 56-year-old gentleman who is returning to the Pain Clinic for re-evaluation of his right groin pain and lower back pain. He was first seen as a new patient in April with Dr. Ibarra, and since was found to have a right sided hernia and it was repaired. Patient feels that the repair has not completely taken care of his groin pain. His pain radiates from the groin down to the medial aspect of his right inner thigh. He has had a right hip replacement on that side and has followed up with orthopedics to find the hip was in good shape. He has seen Dr. Nunn in [place] in the past regarding his back, and at that time, he was told he is not a surgical candidate until his hip was taken care of. Patient is not interested in surgery at this time, but is open to procedure interventions. Most recent MRI of his lumbar shows he has significant multilevel disc bulge, in particularly L1-L2 and L2-L3. He also complains of left rib pain, stating while working, a doorknob went into his left rib and he has active bruising there. He denies any shortness of breath. Activities that aggravate his pain are standing, walking, bending and stairs. He currently does not use any heat or ice. Current medications include, from his PCP; Percocet 7.5/325 q.i.d., gabapentin 300 mg daily and nabumetone 500 mg b.i.d. Patient denies any vasomotor weakness. Patient's REVIEW OF SYSTEMS / PAST MEDICAL HISTORY / ALLERGIES and IMAGES have been reviewed and they are noted on the chart. PHYSICAL EXAM: VITALS: Blood pressure 110/61, heart rate is 60. Temperature is 98. He is 5'4 and weighs 81.1 kg. GENERAL APPEARANCE: Pleasant, appropriate, no acute distress. FOCUSED EXAM: Reproduction of spinal axial pain noted to L1-L2, L3-L4 lumbar facets to direct compression. Pain does radiate diffusely laterally. Paravertebral muscles are taut but non-spasmodic. Upon compression of L2 and with known foraminal stenosis to the right, referred pain was to medial aspect of the right groin and inner leg. Moi's point is non-tender bilaterally. MUSCULOSKELETAL: Motor is intact, 4/5 bilaterally. Patient walks with a forward flexion posture but does not use assistive device. NEUROLOGICALLY: There is patchy hypoesthesia noted along L1, L2 bilateral lower extremities that does not extend below the knee. Right is greater than left. LEFT CHEST EXAM: Point tenderness noted between ninth and tenth ribs to the left. Slight contusion noted. Symmetry is equal with respirations. IMPRESSION: Lumbar degenerative disc, lumbar spondylosis, spinal axial lower back pain, lumbar radiculitis, left rib pain. PLAN: We will get a chest x-ray PA and lateral to evaluate his left rib pain. After speaking with the patient regarding procedures, he would like to move forward with a #1 bilateral MBB at L1, L2 and L3, L4. Patient agrees to move forward with that and will be followed up in the clinic post procedure and for chest x-ray review. Patient is to continue using baclofen as prescribed at his prior appointment and I discussed patient to decrease the amount of Percocet he takes, if he can tolerate it. Nutrition and vitamin importance was discussed as well. Patient agrees with the plan of care. [facility] Signed and Approved by: TERESO COLMENARES . 10/08/2021 16:01:00 [facility] 08-31-2020 Note Microbiology PROCEDURE: Blood Culture Charcoal [R1] SOURCE: Blood BODY SITE: Arm L COLLECTED DATE/TIME: 08/24/2020 01:07 EDT RECEIVED DATE/TIME: 08/24/2020 03:43 EDT START DATE/TIME: 08/24/2020 03:43 EDT FREE TEXT SOURCE: Peripheral vein site #[address], David Gutierrez MD FINAL REPORTS Final Report [] Verified Date/Time: 08/31/2020 07:00 EDT No growth at 7 days. Performing Locations R1: [facility], [address] [place] [address], [facility]- , , [facility] Comment on above: Performed By: #### 1 [id number] ####[facility] [address] [place] [address] 08-31-2020 Note Microbiology PROCEDURE: Blood Culture Charcoal [R1] SOURCE: Blood BODY SITE: Arm R COLLECTED DATE/TIME: 08/24/2020 00:35 EDT RECEIVED DATE/TIME: 08/24/2020 03:42 EDT START DATE/TIME: 08/24/2020 03:42 EDT FREE TEXT SOURCE: Peripheral vein site #1 Pia LAEN, David Gutierrez MD FINAL REPORTS Final Report [] Verified Date/Time: 08/31/2020 07:00 EDT No growth at 7 days. Performing Locations R1: This test was performed at: [facility], [address] [place] [address], [id number]- , [place], [facility] Comment on above: Performed By: #### 1 [id number] ####[facility] [address] [place] [address] History of Present illness Narrative Patient is here for cardiovascular evaluation for second opinion in regard to documents resting sinus bradycardia. The patient is 56-year-old with history of tobacco use and COPD was evaluated recently due to shortness of breath and his stress test showed questionable inferior wall ischemia. This led to a cardiac evaluation in [place] and its not clear to me whether the patient had CT angio or cardiac catheterization which apparently did not show significant obstructive disease and medical therapy was recommended. The patient reported that he has been told that he had resting sinus bradycardia for many years even in his 20s. Previous Holter monitor done and documented resting physiologic sinus bradycardia. However his bradycardia noted to be slightly worse recently. Repeat Holter monitor showed resting sinus bradycardia average heart rate of 48 beats per minutes. His heart rate dipped to during the night to the upper 20s. There was no long pauses or symptoms reported by the patient. Few PACs and PVCs reported. Patient report mild shortness of breath related to his chronic obstructive lung disease and tobacco use. He does describe history of hypertension. He denies any lightheadedness, dizziness or syncope. He reported he had a limited exercise tolerance due to his recent injury that required surgery to his right leg. However he reported this has improved. During his Holter monitor his maximum heart rate was 112 beats per minutes.Assessment1. Resting sinus bradycardia appears to be physiologic. Patient has that documented for many years. No obvious symptoms can be correlated with his bradycardia.2. Recently observed borderline stress test which led to an ischemic evaluation. Jose Antonio unclear if it was CTA angio or cardiac catheterization with but the patient was told no significant obstructive disease3. Hypertension4. Tobacco use and COPD5. Recent accident led to surgery in his right leg/thigh with pain control procedure details lacking.Plan1. At this point of time I would continue to recommend observant approach considering lack of convincing symptoms, no finding on the Holter monitor that meet the criteria for pacemaker implantation and based on his functional status2. I recommended to the patient to have a GXT to assess for chronotropic competency3. Patient was counseled regarding smoking cessation4. We will try to retrieve his recent ischemic evaluation5 follow-up in 6 [facility] 600 DO Work Phone: History of Present illness Narrative Patient is here for cardiovascular evaluation for second opinion in regard to documents resting sinus bradycardia. The patient is 56-year-old with history of tobacco use and COPD was evaluated recently due to shortness of breath and his stress test showed questionable inferior wall ischemia. This led to a cardiac evaluation in [place] and its not clear to me whether the patient had CT angio or cardiac catheterization which apparently did not show significant obstructive disease and medical therapy was recommended. The patient reported that he has been told that he had resting sinus bradycardia for many years even in his 20s. Previous Holter monitor done and documented resting physiologic sinus bradycardia. However his bradycardia noted to be slightly worse recently. Repeat Holter monitor showed resting sinus bradycardia average heart rate of 48 beats per minutes. His heart rate dipped to during the night to the upper 20s. There was no long pauses or symptoms reported by the patient. Few PACs and PVCs reported. Patient report mild shortness of breath related to his chronic obstructive lung disease and tobacco use. He does describe history of hypertension. He denies any lightheadedness, dizziness or syncope. He reported he had a limited exercise tolerance due to his recent injury that required surgery to his right leg. However he reported this has improved. During his Holter monitor his maximum heart rate was 112 beats per minutes.Assessment1. Resting sinus bradycardia appears to be physiologic. Patient has that documented for many years. No obvious symptoms can be correlated with his bradycardia.2. Recently observed borderline stress test which led to an ischemic evaluation. Jose Antonio unclear if it was CTA angio or cardiac catheterization with but the patient was told no significant obstructive disease3. Hypertension4. Tobacco use and COPD5. Recent accident led to surgery in his right leg/thigh with pain control procedure details lacking.Plan1. At this point of time I would continue to recommend observant approach considering lack of convincing symptoms, no finding on the Holter monitor that meet the criteria for pacemaker implantation and based on his functional status2. I recommended to the patient to have a GXT to assess for chronotropic competency3. Patient was counseled regarding smoking cessation4. We will try to retrieve his recent ischemic evaluation5 follow-up in 6 [facility] Work Phone: History of Present illness Narrative Patient is here for cardiovascular evaluation for second opinion in regard to documents resting sinus bradycardia. The patient is 56-year-old with history of tobacco use and COPD was evaluated recently due to shortness of breath and his stress test showed questionable inferior wall ischemia. This led to a cardiac evaluation in [place] and its not clear to me whether the patient had CT angio or cardiac catheterization which apparently did not show significant obstructive disease and medical therapy was recommended. The patient reported that he has been told that he had resting sinus bradycardia for many years even in his 20s. Previous Holter monitor done and documented resting physiologic sinus bradycardia. However his bradycardia noted to be slightly worse recently. Repeat Holter monitor showed resting sinus bradycardia average heart rate of 48 beats per minutes. His heart rate dipped to during the night to the upper 20s. There was no long pauses or symptoms reported by the patient. Few PACs and PVCs reported. Patient report mild shortness of breath related to his chronic obstructive lung disease and tobacco use. He does describe history of hypertension. He denies any lightheadedness, dizziness or syncope. He reported he had a limited exercise tolerance due to his recent injury that required surgery to his right leg. However he reported this has improved. During his Holter monitor his maximum heart rate was 112 beats per minutes.Assessment1. Resting sinus bradycardia appears to be physiologic. Patient has that documented for many years. No obvious symptoms can be correlated with his bradycardia.2. Recently observed borderline stress test which led to an ischemic evaluation. Jose Antonio unclear if it was CTA angio or cardiac catheterization with but the patient was told no significant obstructive disease3. Hypertension4. Tobacco use and COPD5. Recent accident led to surgery in his right leg/thigh with pain control procedure details lacking.Plan1. At this point of time I would continue to recommend observant approach considering lack of convincing symptoms, no finding on the Holter monitor that meet the criteria for pacemaker implantation and based on his functional status2. I recommended to the patient to have a GXT to assess for chronotropic competency3. Patient was counseled regarding smoking cessation4. We will try to retrieve his recent ischemic evaluation5 follow-up in 6 [facility] Work Phone: History of Present illness Narrative Patient is here for follow-up continue management for recent evaluation for resting asymptomatic sinus bradycardia, hypertension and tobacco use. The patient was referred for a stress test. He was able to walk for more than 7 minutes. He achieved almost 77% of max predicted heart rate. He indicated to me he could have gone longer but his back and right leg was bothering him. Since last time I saw him he denies any cardiac complaint he feels well.Assessment1. Resting sinus bradycardia his recent stress test showed good exercise tolerance and ability to achieve close to 77% of maximum predicted heart rate. He is completely asymptomatic2. Recently observed borderline stress test which led to an ischemic evaluation. He underwent cardiac catheterization in [place] which showed no significant obstructive disease3. Hypertension4. Tobacco use and COPD5. Recent accident led to surgery in his right leg/thigh with pain control procedure details lacking.Plan1. With the patient the results of his recent diagnostic testing and I recommended continue with observant approach2. Patient was counseled regarding smoking cessation3. We will try to retrieve his cardiac catheterization4. I recommended aggressive approach risk factor modification5. Follow-up in 1 year with an EKG or earlier if the need arise [facility] 600 DO Work Phone: Summary Purpose Family History No Family History Records FoundUnknown Family Member Name Dates Details Mental problem: Mother Status:Active Unknown Family Member Name Dates Details Mental problem: Mother Status:Active Unknown Family Member Name Dates Details Mental problem: Mother Status:Active Unknown Family Member Name Dates Details Mental problem: Mother Status:Active Unknown Family Member Name Dates Details Mental problem: Mother Status:Active Advance Directives No Advanced Directives Records FoundNo Advanced Directives Records FoundNo Advanced Directives Records FoundNo Advanced Directives Records FoundNo Advanced Directives Records FoundNo Advanced Directives Records FoundNo Advanced Directives Records Found Chief Complaint LILIANA MICHAELS is being seen for npv/ jenelle.LILIANA MICHAELS is being seen for npv/ jenelle.LILIANA MICHAELS is being seen for npv/ jenelle.LILIANA MICHAELS is being seen for a month follow-up of. Additional Source Comments (unrecognized sect ion and content) No Status Records FoundNo Status Records FoundNo Status Records FoundNo Status Records FoundNo Status Records FoundNo Status Records FoundNo Status Records Found INFORMATION SOURCE (unrecogn ized section and content) DATE CREATED AUTHOR [facility]/06/2021 [facility] DATE CREATED AUTHOR AUTHOR'S ORGANIZ ATION 03/12/2021 [facility] DATE CREATED AUTHOR AUTHOR'S ORGANIZ ATION 02/16/2022 [facility] DATE CREATED AUTHOR AUTHOR'S ORGANIZ ATION 07/16/2022 [facility] DATE CREATED AUTHOR AUTHOR'S ORGANIZ ATION 07/16/2022 [employer] DATE CREATED AUTHOR AUTHOR'S ORGANIZ ATION 09/17/2022 [facility] DATE CREATED AUTHOR AUTHOR'S ORGANIZ ATION 04/15/2023 [facility] FOR RECORDS PERTAINING TO PATIENTS WHO ARE OR HAVE BEEN ENROLLED IN A CHEMICAL DEPENDENCY/SUBSTANCEABUSE PROGRAM, SOME INFORMATION MAY BE OMITTED. This clinical summary was aggregated from multiple sources. Caution should be exercised in using it in the provision of clinical care. This summary normalizes information from multiple sources, and as a consequence, information in this document may materially change the coding, format and clinical context of patient data. In addition, data may be omitted in some cases. CLINICAL DECISIONS SHOULD BE BASED ON THE PRIMARY CLINICAL RECORDS. [employer] provides no warranty or guarantee of the accuracy or completeness of information in this document.
--- OUTSIDE RECORDS SUMMARY | 2023-05-26 15:28 | XMS_ITS | CCD ---
Author Name Unknown Address [address] [facility] [address] [facility] [address] [place] [address] Organization [facility] Care Team Providers Care Lead Manufacturing Engineering Tech Name Role Phone SIMONE RUIZ Admitting Unavailable SIMONE RUIZ Attending Unavailable ISHMAEL SIMON Referring Unavailable ISHMAEL SIMON Primary Care Unavailable JEY ELISE Attending Unavailable JEY ELISE Surgeon Unavailable IA Procedure Practitioner Unavailab ISHMAEL Campoverde Primary Care Unavailable ISHMAEL SIMON Referring Unavailable JEY ELISE Admitting Unavailable JEY ELISE Attending Unavailable ISHMAEL SIMON Primary Care Unavailable ISHMAEL SIMON Referring Unavailable JEY ELISE R Admitting Unavailable Ishamel Simon Unavailable Unavailable Unavailable Carissa, Dr. Armstrong Attending Unavaila ble Carissa, Dr. Armstrong Referring Unavaila ble Alfred, Dr. Ishmael Vallejo Primary Care Anupamavachavez labjayla Ferrer, Dr. Armstrong Attending Unavaila loulou Ferrer, Dr. [...] 01-01-2022 Episodic Other aftercare (1 source) Other correction (current) drug therapy; Translations: [OTH DETENTION CURRENT DRUG THERAPY] Onset: 05-13-2022 Episodic Other [...] BATSHEVA ALVARADO Date: 2022-07-15 12:[address] [facility] Office Visit (Cardiology)on 07-14-2022 Follow-up visit Diagnoses/Problems [...] we can help. You may also call [phone] for free resources and assistance.; Status:Complete - [...] ischemic evaluation. He underwent cardiac catheterization in [place] which showed no significant obstructive disease 3. [...] BY MOUTH FOUR TIMES A DAY NEEDED Qrtsce9f at bedtime Singulair 10 MG Oral TabletTAKE [...] negative for complaint. Vitals Vital Signs Recorded: [id number] 10:57AM Heart Rate34, L Radial Jynxswvv576, LUE, Sitting Twfqapcdb22, LUE, Sitting Height5 ft 4 in Fkqxbq607 lb BMI Imbznucnlv39.96 kg/m2 BSA Calculated1.92 Tobacco Usea) Yes Patient encouraged to st (more content not included)... Normal [facility] [employer] Tobacco Screening.on 023 Adult depression screening assessment No [facility] Taquilla DO Work Phone: Fall risk assessment a) No falls within the last year [facility] [employer] 600 DO Work Phone: Tobacco use status CPHS a) Yes [facility] [employer] 600 DO Work Phone: Tobacco Screening. Yes [facility] Taquilla DO Work Phone: CT ABD/PELV W CONon [...] FLEX JACOBS Date: 2022-06-11 10:[address] [facility] CBC AUTO DIFFon 05-07-2022 BASO # 0.1 103/ul Normal 0.0-0.1 [facility] Comment on above: Performed By: #### C BC #### [facility] [address] [address] [address] Britt Mendoza Basophils/100 WBC (Bld) 1.6 % Normal 0.2-2.0 [facility] Comment on above: Performed By: #### C BC #### [facility] [address] [address] [address] Britt Mendoza EO # 0.2 103/ul Normal 0.0-0.7 [facility] Comment on above: Performed By: #### C BC #### [facility] [address] [address] [address] Britt Mendoza Eosinophils/100 WBC (Bld) 3.0 % Normal 0.9-7.0 [facility] Comment on above: Performed By: #### C BC #### [facility] [address] [address] [address] Britt Mendoza Erythrocyte distribution width (RBC) [Ratio] 12.4 % Normal 11.0-15.0 [facility] Comment on above: Performed By: #### C BC #### [facility] [address] [address] [address] Britt Mendoza Hematocrit (Bld) [Volume fraction] 43.2 % Normal 42.0-54.0 [facility] Comment on above: Performed By: #### C BC #### [facility] [address] [address] [address] Britt Mendoza Hemoglobin (Bld) [Mass/Vol] 14.7 g/dL Normal 14.0-18.0 [facility] Comment on above: Performed By: #### C BC #### [facility] [address] [address] [address] Britt Mendoza IG # 0.11 10e3/ul Critically high 0.00-0.03 [facility] Comment on above: Performed By: #### C BC #### [facility] [address] [address] [address] Britt Mendoza IG % 1.4 % Critically high 0.0-0.5 [facility] Comment on above: Performed By: #### C BC #### [facility] [address] [place] [address] Dr. Britt Mendoza LYMPH # 1.7 103/ul Normal 1.2-3.8 [facility] Comment on above: Performed By: #### C BC #### [facility] [address] [place] [address] Dr. Britt Mendoza Lymphocytes/100 WBC (Bld) 21.6 % Normal 20.5-60.0 [facility] Comment on above: Performed By: #### C BC #### [facility] [address] [place] [address] Dr. Britt Mendoza MANUAL DIFF REQ NO Normal [facility] Comment on above: Performed By: #### C BC #### [facility] [address] [place] [address] Dr. Britt Mendoza MCH (RBC) [Entitic mass] 31.2 pg Normal 25.9-34.0 [facility] Comment on above: Performed By: #### C BC #### [facility] [address] [place] [address] Dr. Britt Mendoza MCHC (RBC) [Mass/Vol] 34.0 g/dL Normal 29.9-35.2 [facility] Comment on above: Performed By: #### C BC #### [facility] [address] [place] [address] Dr. Britt Mendoza MCV (RBC) [Entitic vol] 91.7 fL Normal 80.0-94.0 [facility] Comment on above: Performed By: #### C BC #### [facility] [address] [address] [address] Britt Mendoza MONO # 0.5 103/ul Normal 0.3-0.[address] [facility] Comment on above: Performed By: #### C BC #### [facility] [address] [address] [address] Britt Mendoza Monocytes/100 WBC (Bld) 6.8 % Normal 1.7-12.[address] [facility] Comment on above: Performed By: #### C BC #### [facility] [address] [place] [address] Dr. Britt Mendoza NEUT # 5.0 103/ul Normal 1.4-6.[address] [facility] Comment on above: Performed By: #### C BC #### [facility] [address] [place] [address] Dr. Britt Mendoza Neutrophils/100 WBC (Bld) 65.6 % Normal 43.0-75.0 [facility] Comment on above: Performed By: #### C BC #### [facility] [address] [place] [address] Dr. Britt Mendoza Platelet mean volume (Bld) [Entitic vol] 9.7 fL Normal 9.5-13.[address] [facility] Comment on above: Performed By: #### C BC #### [facility] [address] [place] [address] Dr. Britt Mendoza PLT 244 103/ul Normal 150-[address] [facility] Comment on above: Performed By: #### C BC #### [facility] [address] [place] [address] Dr. Britt Mendoza RBC 4.71 106/ul Normal 4.70-6.[address] [facility] Comment on above: Performed By: #### C BC #### [facility] [address] [place] [address] Dr. Britt Mendoza WBC 7.6 103/ul Normal 4.0-11.[address] [facility] Comment on above: Performed By: #### C BC #### [facility] [address] [place], [place] [address] Dr. Britt Mendoza GLYCOHEMOGLOBIN A1Con 2021 ADA RECOMMENDATION SEE BELOW Normal [facility] Comment on above: Result Comment: ADA RECOMMENDED LIMIT 4.0 - 6.0 ADA THERAPEUTIC TARGET < 7.0 ACTION SUGGESTED > 7.0 Performed By: #### A 1C ####[facility] [address] [id number]. Britt Mendoza Glucose [Mass/Vol] 117 mg/dL Normal [facility] Comment on above: Performed By: #### A 1C ####[facility] [address] [id number] Mendoza HbA1c (Bld) [Mass fraction] 5.7 % Normal 4.5-6.2 [facility] Comment on above: Performed By: #### A 1C ####[facility] [address] [address]DrAtiya Mendoza LIPID PROFILEon 05-07-2022 CHOL-HDL RATIO NORM SEE BELOW Normal [facility] Comment on above: Result Comment: 3.3 - 4.4 LOW RISK 4.4 - 7.1 AVERAGE RISK 7.1 - 11.0 MODERATE RISK >11.0 HIGH RISK Performed By: #### B MP, LIVER, LIPID, TSH ####[facility] [address] [id number]. Britt Mendoza Cholesterol [Mass/Vol] 235 mg/dL Critically high <=200 [facility] Comment on above: Performed By: #### B MP, LIVER, LIPID, TSH ####[facility] [address] [id number]. Britt Mendoza Cholesterol in HDL [Mass/Vol] 40 mg/dL Normal 40-60 [facility] Comment on above: Performed By: #### B MP, LIVER, LIPID, TSH ####[facility] [address] [id number]. Britt Mendoza Cholesterol in LDL [Mass/Vol] 156.8 mg/dL Normal [facility] Comment on above: Performed By: #### B MP, LIVER, LIPID, TSH ####[facility] [address] [id number]. Britt Mendoza Cholesterol.total/C holesterol in HDL [Mass ratio] 5.9 {ratio} Normal [facility] Comment on above: Performed By: #### B MP, LIVER, LIPID, TSH ####[facility] [address] [id number]. Britt Mendoza HDL NORMAL > or = 60 mg/dl - LO W CARDIOVASCULAR RISK <40 mg/dl - HIGH CARDIOVASCULAR RISK Normal [facility] Comment on above: Performed By: #### B MP, LIVER, LIPID, TSH ####[facility] [address] [address]Dr. Britt Mendoza LDL CALC NORMAL SEE BELOW Normal [facility] Comment on above: Result Comment: <100 mg/dl OPTIMAL 100 - 129 mg/dl NEAR OR ABOVE OPTIMAL 130 - 159 mg/dl BORDERLINE HIGH 160 - 189 mg/dl HIGH >190 mg/dl VERY HIGH Performed By: #### B MP, LIVER, LIPID, TSH ####[facility] [address] [address]Dr. Britt Mendoza Triglyceride [Mass/Vol] 191 mg/dL Critically high <=150 [facility] Comment on above: Performed By: #### B MP, LIVER, LIPID, TSH ####[facility] [address] [id number]. Britt Mendoza VLDL CALC 38.2 mg/dL Normal [facility] Comment on above: Performed By: #### B MP, LIVER, LIPID, TSH ####[facility] [address] [id number]. Britt Mendoza LIVER PROFILEon 05-07-2022 Albumin [Mass/Vol] 3.6 g/dL Normal 3.4-5.0 [facility] Comment on above: Performed By: #### B MP, LIVER, LIPID, TSH ####[facility] [address] [address]Dr. Britt Mendoza Albumin/Globulin [Mass ratio] 1.1 {ratio} Normal [facility] Comment on above: Performed By: #### B MP, LIVER, LIPID, TSH ####[facility] [address] [address]Dr. Britt Mendoza ALP [Catalytic activity/Vol] 84 U/L Normal 46-116 [facility] Comment on above: Performed By: #### B MP, LIVER, LIPID, TSH ####[facility] [address] [address]Dr. Britt Mendoza ALT [Catalytic activity/Vol] 34 U/L Normal 16-63 [facility] Comment on above: Performed By: #### B MP, LIVER, LIPID, TSH ####[facility] [address] [address]Dr. Britt Mendoza AST [Catalytic activity/Vol] 21 U/L Normal 15-37 [facility] Comment on above: Performed By: #### B MP, LIVER, LIPID, TSH ####[facility] [address] [address]Dr. Britt Mendoza BILI, CONJUGATED 0.1 mg/dL Normal 0.0-0.2 [facility] Comment on above: Performed By: #### B MP, LIVER, LIPID, TSH ####[facility] [address] [place], [place] [address]Dr. Britt Mendoza Bilirubin [Mass/Vol] 0.4 mg/dL Normal 0.2-1.0 [facility] Comment on above: Performed By: #### B MP, LIVER, LIPID, TSH ####[facility] [address] [place], [place] [address]Dr. Britt Mendoza Globulin (S) [Mass/Vol] 3.4 g/dL Normal [facility] Comment on above: Performed By: #### B MP, LIVER, LIPID, TSH ####[facility] [address] [address]Dr. Britt Mendoza Protein [Mass/Vol] 7.0 g/dL Normal 6.4-8.2 [facility] Comment on above: Performed By: #### B MP, LIVER, LIPID, TSH ####[facility] [address] [place], [place] [address]Dr. Britt Mendoza PROF CHEM 8 (BAS METB)on Anion gap [Moles/Vol] 13.8 mmol/L Normal [facility] Comment on above: Result Comment: Prev iously reported as: -2.3 On 05/07/2022 13:50 By DM9 Performed By: #### B MP, LIVER, LIPID, TSH #### [facility] [address] [address] [address] Britt Mendoza Calcium [Mass/Vol] 9.2 mg/dL Normal 8.5-10.1 [facility] Comment on above: Performed By: #### B MP, LIVER, LIPID, TSH #### [facility] [address] [place] [address] Dr. Britt Mendoza Chloride [Moles/Vol] 99 mmol/L Normal 98-107 [facility] Comment on above: Result Comment: Prev iously reported as: 106 On 05/07/2022 13:50 By DM9 Performed By: #### B MP, LIVER, LIPID, TSH #### [facility] [address] [place] [address] Dr. Britt Mendoza CO2 [Moles/Vol] 27.3 mmol/L Normal 21.0-32.0 [facility] Comment on above: Result Comment: Prev iously reported as: 29.2 On 05/07/2022 13:50 By DM9 Performed By: #### B MP, LIVER, LIPID, TSH #### [facility] [address] [place] [address] Dr. Britt Mendoza Creatinine [Mass/Vol] 1.12 mg/dL Normal 0.70-1.30 [facility] Comment on above: Performed By: #### B MP, LIVER, LIPID, TSH #### [facility] [address] [place] [address] Dr. Britt Mendoza EGFR-AF SWISS >60 Normal >=60 [facility] Comment on above: Performed By: #### B MP, LIVER, LIPID, TSH #### [facility] [address] [place] [address] Dr. Britt Mendoza EGFR-NON AF SWISS >60 Normal >=60 [facility] Comment on above: Performed By: #### B MP, LIVER, LIPID, TSH #### [facility] [address] [address] [address] Britt Mendoza Glucose [Mass/Vol] 108 mg/dL Critically high 74-106 [facility] Comment on above: Performed By: #### B MP, LIVER, LIPID, TSH #### [facility] [address] [place] [address] Dr. Britt Mendoza Potassium [Moles/Vol] 4.1 mmol/L Normal 3.5-5.1 [facility] Comment on above: Result Comment: Prev iously reported as: 3.9 On 05/07/2022 13:50 By DM9 Performed By: #### B MP, LIVER, LIPID, TSH #### [facility] [address] [place] [address] Dr. Britt Mendoza Sodium [Moles/Vol] 136 mmol/L Normal 136-145 [facility] Comment on above: Result Comment: Prev iously reported as: 129 On 05/07/2022 13:50 By DM9 Performed By: #### B MP, LIVER, LIPID, TSH #### [facility] [address] [place] [address] Dr. Britt Mendoza Urea nitrogen [Mass/Vol] 26.0 mg/dL Critically high 7.0-18.0 [facility] Comment on above: Performed By: #### B MP, LIVER, LIPID, TSH #### [facility] [address] [place] [address] Dr. Britt Mendoza Urea nitrogen/Creatinine [Mass ratio] 23.2 mg/mg Normal [facility] Comment on above: Performed By: #### B MP, LIVER, LIPID, TSH #### [facility] [address] [place] [address] Dr. Britt Mendoza TSHon 05-07-2022 TSH 0.828 uIU/mL Normal 0.358-3.740 [facility] Comment on above: Performed By: #### B MP, LIVER, LIPID, TSH ####[facility] [address] [place], [place] [address]. Britt Mendoza VITAMIN D 25 OHon 05-07-2022 VIT D 25-OH 45.6 ng/mL Normal [facility] Comment on above: Performed By: #### V BRENDAN, PSASC #### [facility] [address] [place], [place] [address] Dr. Britt Mendoza VIT D RANGES SEE BELOW Normal [facility] Comment on above: Result Comment: <20 ng/mL Vit D deficient 20 - <30 ng/mL Vit D insufficient 30 - 100 ng/mL Vit D sufficient >100 ng/mL Potential Toxicity Performed By: #### V BRENDAN, PSASC #### [facility] [address] [place], [place] [address] Dr. Britt Mendoza Covid-19 PCR (CVDTB)on SARS-CoV-2 (COVID-19) RNA KATT+probe Ql (Unsp spec) Detected Critically abnormal NOT DETECTED [facility] Comment on above: Result Comment: This test is not yet approved or cleared by the [place] FDA. When there are no FDA-approved or cleared tests available, and other criteria are met, FDA can make tests available under an emergency access mechanism called an Emergency Use Authorization (EUA). The EUA for this test is supported by the Retail Property Manager of Health and Human Service's declaration that [...] be used). Performed By: #### C VDTBH ####[facility] [address] [place], [place] [address]JuDr. Britt Mendoza Cardiac Stress Teston 2021 Cardiac Stress Test [address], [address], [place] [address] Exercise Stress Test Patient Name: LILIANA MICHAELS JR. Ordering Physician: [id number] Valentino Ferrer MD Study Date: 02/15/2022 Reading Physician: [id number] Valentino Ferrer MD MRN/PID: [id number] Supervising Physician: [id number] Rivera MD Accession/Order#: [id number] Referring Physician: VALENTINO FERRER Date of : 1965 PCP: Ishmael Simon Gender: M Fellow: Height: 162.56 cm Nurse: Yunior Bhatti RN Weight: 81.65 kg Business Risk Analyst: SAEID BSA: 1.87 m2 Technologist: BMI: 30.90 kg/m2 Additional Staff: Age: 56 years cc report to: Patient Location: cc report to: [id number] Valentino Ferrer MD Study Type: Cardiac Stress Test Diagnosis/ICD: R94.31-Abnormal electrocardiogram [ECG] [EKG]; R00.1-Bradycardia, unspecified; R06.00-Dyspnea, unspecified Indication: Dyspnea Procedure/CPT: Stress Test Interpretation-54386; Stress Test Supervision-[id number] Falls Risk: Low: Patient has low risk [...] 7. An element of chronotropic incompetency noted. [id number] Valentino Ferrer MD Electronically signed on 02/16/2022 at 2:52:20 PM Final Normal [facility] Cardiac Stress Test Please click on the link to view the study images [facility] Work Phone: Cardiac Stress Test MP-No rth [facility] 250 DO Work Phone: Office Visit (Cardiology)on [...] we can help. You may also call [phone] for free resources and assistance.; Status:Complete - Retrospective Authorization; Done: [id number] SocHx: Current smoker Continue with our present treatment plan.; Status:Complete - Retrospective Authorization; Done: [id number] Tobacco Use Screening; Status:Complete; Done: [id number] Patient Instructions Please bring all medicines, vitamins, [...] This led to a cardiac evaluation in [place] and its not clear to me whether [...] Oral Capsule Delayed ReleaseTAKE 1 CAPSULE Daily Jagwuy6k at bedtime Sin (more content not included)... Normal [employer] Tobacco Screening.on Adult depression screening assessment No [facility] [employer] 600 DO Work Phone: Fall risk assessment a) No falls within the last year [facility] [employer] 600 DO Work Phone: Tobacco use status CPHS a) Yes [facility] [employer] 600 DO Work Phone: Tobacco Screening. Yes [facility] [employer] 600 DO Work Phone: Covid-19 PCR ([facility])on SARS-CoV-2 (COVID-19) RNA KATT+probe Ql (Unsp spec) Not detected Normal NOT DETECTED [facility] Comment on above: Result Comment: This test is not yet approved or cleared by the [place] FDA. When there are no FDA-approved or cleared tests available, and other criteria are met, FDA can make tests available under an emergency access mechanism called an Emergency Use Authorization (EUA). The EUA for this test is supported by the Retail Property Manager of Health and Human Service's (HHS's) declaration [...] consistent with SARS-CoV-2. Performed By: #### C [facility] #### [facility] [address] [place], [place] [address] Dr. Britt Mendoza Covid-19 PCR ([facility])on 11-07 SARS-CoV-2 (COVID-19) RNA KATT+probe Ql (Unsp spec) Not detected Normal NOT DETECTED [facility] Comment on above: Result Comment: This test is not yet approved or cleared by the [place] FDA. When there are no FDA-approved or cleared tests available, and other criteria are met, FDA can make tests available under an emergency access mechanism called an Emergency Use Authorization (EUA). The EUA for this test is supported by the [place] of Health and Human Service's (HHS's) declaration [...] consistent with SARS-CoV-2. Performed By: #### C [facility] ####[facility] [address] [place], [place] [address]TlDr. Britt Mendoza XR CHEST 2 Von 10-01-2021 [...] by: FLEX JACOBS Date: 2021-10-01 09:30 Normal [facility] Ambulatory Clinical Summaryo n 03-05-2021 Ambulatory Clinical Summary {[id number]}CD:[id number] Normal [facility] Historical Records Officeon 03-05-2021 Historical Records Office [id number]:127 Normal [facility] Patient Educationon 03-05-20 21 Patient Education [...] these instructions at home: Medicines ? Take mkhj-lwl-uasspkc and prescription medicines only as told by [...] of your (more content not included)... Normal [facility] Urology Office/Clinic Noteon 03-05-2021 Urology Office/Clinic [...] order. Ordered: Office Visit Level 4 Est 15886 2. Hypogonadism male (E29.1: Testicular hypofunction) noted [...] time. Ordered: Office Visit Level 4 Est 08322 3. BPH with urinary obstruction (N40.1: Benign prostatic hyperplasia with lower urinary tract symptoms) s/p Urolift September 2018. Pt is currently taking no bladder/prostate medication and is mostly satisfied with overall symptom control. has nocturia but attributes this to diuretics. Pt prefers to continue with no changes at this time. PCP checking PSAs per pt. Ordered: Office Visit Level 4 Est 90155 Orders: Urnls Dip Stick Auto w/o Microscopy POC 51962 offered f/u 1 yr but pt prefers PRN. Total time spent reviewing previous notes/results/externa l documents, preparing the chart, conducting the encounter with the patient and family, ordering tests/medications, and documenting the encounter was 30 minutes. Follow-up With When Contact Information ITA SLOAN, SIMONE Priest [address] [place] [address]- Additional Instructions: Patient Education Erectile [...] inhalation powde (more content not included)... Normal [facility] Comment on above: Result Comment: Elec tronically Signed By: DANIEL MARTINEZ, TOMEKA Priest\.br\Date and Time Signed: 03/05/21 12:24 EDT MRI PELVIS WO CONTRASTon MRI PELVIS WO CONTRAST [facility] Department of Radiology [address] [place] [address] Patient Name: LILIANA MICHAELS : 1965 Sex: M Age: Race: White Pt. Location: 18 Patient Status: Ordered Date: 09/10/2020 3:35:00 PM Completed Date: 10/03/2020 08:34 AM Requesting Provider: SIMONE RUIZ Attending Provider: Report Copy To: Signs & Symptoms: R10.2 Pelvic and perineal pain I10 History: [place], Right FOREIGN per clinic will fax [facility] auth# [id number] 09/16/20-10/17/20 cpt code 13104 *mla Comments: Right groin to r/o an [...] spine. Electronically signed: Dinh Haskins. Transcribed by: [email or web address], User Resident: Electronically Signed by: DINH HASKINS @ 10/03/2020 09:57 AM Normal [facility] Comment on above: Order Comment: Right groin to r/o an adductor tear; iliopsoas bursitis or injury Operative Reporton Operative Report MR#: [id number] S [facility] Pt. Name: Liliana Michaels Room #: PMC [...] Ruiz MD Date Trans: 09/10/2020 11:40 P/mmo DN_JN:[id number] cc: Ishmael Simon M.D. [address] [place] [address] [place] [facility] Coding Summary.on 09-01-2020 Coding Summary. CD:[id number] h0bWw+PGhlYWQ+JM5WMVS fW29niCCpxC8XI0uTYZ8B RGQJMYWLUR3NVQ8ikBR6T SurT8BgurSx JhfxqVXlCP14AFk1LLJ8n DsvYPmueW4xlVCfM6w9Dv IqXN99lP58FCepKLXuFfU 3LjZpbjsgbWFy M9ekKwSjrFIzQcy+PHRhY mxlIHdpZHRoPScxMDAlJy OgeCioPH6jSx3uMAWrQTQ vbGxhcHNlOiBj d3tiPBVaBHswEP6ypWycO 9EldFM5OLKtw5j6Os33lD I+PSCrIUJ4vAllIXhts92 7TpQsc8mnGIL3 iROgNFasFRC6V03hz0M3U NNbOIYjQPU4nOJ1qV4tjM sqlkpfV8LmsPVyTrX3DCL 8oPGmnO6xtWop bqvwoV1lOcy+S51GIC7HQ LIEVV7DKwg0Y2KlEarqtA I+WQ62VHFzOZ74bEAbpLH jf5bfxOd5VkZa AYVlZSE9cUbiAMhhi7WmB ECtJ93ooRWck4B8CFXtoK pxcKXqApEocUI8fU8qBCj qgwrfy5wnoamr Qieuv1vqcp80yN04M45gE HegXLTqSCE4ZFOvMOOauK xyhw0fyK9gDa0+YXepk6k qf3sklYp3NeNy OGBhrrYzpNlwXTM6s5QjZ x81P2KewCjlw4PaIgz4ew 10hMFvv5V9bNF9EEeyREV rqS6kRWalSxO8 ANMfXaVubK76bRPpNKhzH i4hqWfchXcgBK1oMIIqmr juMCWhdM6sOJYdhAJytVn qJB9lZTBvwwis r899CaYoHYM2QPZlmMXbJ 7VbcK9mIdOeTTRaMSWeZ0 SjhOFdMPywP823RDnvPgJ 3ZRIhhhHuC0Bq RHEodZhvXoQ1a3M7Nd1Qf 2NnbblpRJT1VLrgSPZ9Rs S2HcVtZlT7P0GsNec7ILF prRhcEF7wN5Bd ZWZtulwzwdoiePA8ENOhC DIgsR52hWPvLHouZl6gh8 Q0g023NEWbNYRinU99Tv2 udDogMTBwdCBU pO2hhqnyd5jebdftKfSgG HDyJYk6DUd8KHZxqIklZs KfGLK3FcK7FNV1pRYnsV8 fpGbeixjlyG2a Oyc+J23fhR7yOTF2GUF0q gpkIREyjpJsOB41RH34V5 RyPjwvdGFibGU+PGRpdiB nbJiiAT7fPkZb x8cap3TaWQdzC9KmBHIuB MehErf0BBJzPMS1kWE0yS 1uDHQrLLesm0R2sEE4O2T pumWlhl9mo7vj KSReZTfjS51zkFHbz9W0O JXolUD9XRTxiWkwSoLoqA 93Oyc+PYOarRpaq2NeAfo zg0bju5thvSg8 DzPjMMPbpdClcItlDKK2y 8TwUe91A74iIRtaVSFcHL NrBHIlHLRxtLzsnm6mqZ9 wIi8+PGNvbCB3 mBW0sV8fVPSeRrU7PSjpR 121TvPnjJMkGjpun1tdj7 nmsNi5QzEiWMTssxAmhQw mQCK7a4SmQd59 O87kWLyzGSQbZASmRZAzC CHrfXcicy8otC4cPj5+PC 7gb3qpbj38rJ13iDX+PHR cMBT2hNaaNLyl PHGlzJ4yBZdbMuJ0YYIeN bNsnL25aUPiIWgnTz4frZ isnVtwXJ9eIFZopkcao87 9NrLco6xlKHZs rRXrLCswNOC1H97dh1I7U MHxLHElEZX1mZL9nI2kjC lnbjogbGVmdDsgdmVydGl wHNolSAozR526 IHRvcDsnPlBhdGllbnQgT nGgZCq1Y5KmMkf2SRMxeZ xkLO4qsDBsDUtqLq7ifEu ekSadTV7fQQPy ppdsm312AwFnm9aoQQAsj POkVPjuLST2E32os9A0PC YnMBEaEEL8oNK7mD1mwZa nbjogbGVmdDsg jqNerIjlOJwaRWnwA494Q HRvcDsnPkJpcnRoIERhdG Z3AQ38TO22gLJwk5O3rGJ 0K2HtJYFagvcm jtyamNI5FVIrBTRqrS41J y7gzRbqWb7eANLqEIE8RQ FqtXOrV6WrdJ2wSkEhYXG aPTWuC8KwaLRi LGdwK274COmqIgL5OXPkz rRjF4JqIWSbeOtxBbD8e5 L7Pr4US4T3FR97KB05tFO zv4J7xKI7C1Go EZTmuwklzcmszVP5HGBwE AOgcY41Rb2fgAjrPg2nVV ZcGXR0UPQscWZmI5SbzS7 yOiAjMDAwMDAw Q5SlvQUjIYecL128YLmkK sD9ZWOkpxPuK6HdNGIqcT rgMnB9c6T8Ev5ZWDn4YQ7 2OE81qDXif8R4 iXG2L5FkUJEfndcaagiqo GC3DHJxBPNfaW50Fc0gbJ acQj1vDJHhUQL3PFKnbYA lP0KjnT7dJvZf HJCsOHReP7WknUUdLLwmK 303DXgkBcV1SONziuUzW1 HtGMAqjYtlMsK2i8F3Jp4 NXODkOD75IQW2 gIW4FP17XK50C0LzSeocm GFibGU+PHRhYmxlIHdpZH RoPScxMDAlJyBzdHlsZT0 sId8lHPIcUKUu wAqzhXVqHbYkk9tyGVAxV UphAQ9vdDlkL9BldIP1GE Olp7m7Is17X68xM9VcvAR +FKYedBL4fZC5 uE1pMnFnUgT9DYliD964P jDtxMHgMkewi5dfs8rqrQ b4RhW1LVQqclHccPjhPHW 9d6SvBe93X22r IHdpZHRoPSIxNSUiIHZhb Mukyp5xjW3sDh7+PGNvbC F3rMN7xU8kXsUsWxX6JKf vZ746UpEniDCx Mumlu5fav4xobFt6QjAcT BMbwzQjaJgaMJZ1n1XgVn 54Y7KiuNbpe8NjXmk6dq6 0fCAih2B3oAD8 O0HwDLHndziztDXgzIqyG M2cTJIhxpfaJFEyoC7wLT UwC8c7KwZfQoR7BIieS1Q ieaD6CHPgpTTl AXwtDMZ9T85qb8W1JVDhC MCfDHE6bRV3yP9uqHxkwu ogbGVmdDsgdmVydGljYWw yKJyrO898JXFt iHjrCPTigJ1cKHOtuPRmq SveZH4oECZrgyroYxrCSO 5FUiwgUkFMUEggRTwvdGQ +ECNgVAQ3gFjk AHixHGCyqG7bGPQwM8u6U cMqCkS9UVjzT8PzRFRseg vwJl68yT6fOjHgGiT1EVl bP8LkmoX4LIEn sDNwWBxaQXP0Q11rb2M4V GMmXYBpDBG8vFY7lG9zvH lnbjogbGVmdDsgdmVydGl xECezYEbtZ103 NOHzsBrgMdRgXxL1HlQ6Y bZ1M7FjBwk1XRAljWrcNB 3uxWIdBGymAj8btQbbpVj lGF5dFEQxqcfd ZVFfcJ7wIKMgsMMulEfvM I8nKDHdvtilh297PgAdZS P3MECtuVZlE3WxbX2eSzI lBQPgQNAmC7El qTLpYKtzK520HQgwUoU0G RRvdgJbH6RlGTVlkQbeDc K0p1G6Br55GfJQIKNfdzs vdGQ+PHRkIHN0 qLaxBAevWSSeuX6wUTMcP 8g6SvBuWjN1YLsdS8VuQM GrwxkzUf17sQ6rZiFpRuM 0VPxbR3WudzH9 JOLxhSGhKHnpBJI1K29bf 2R3FFRyXKWgWMQ1aFB2uW 1hbGlnbjogbGVmdDsgdmV ydGljYWwtYWxp W277IHGcdDelJs3xgBL0O 4KwUal6TXRnaYjfGO4igT BaZKirPw0fsHpnuEymUN6 wNTBpbjtwYWRk sH8nTYDvtFAwqVwpZG8wN MVfwzgpz636WlSmQUN9FQ LorCHuY1VqeQ7lMxYySEC nXGHvE8RseRCz UCuhA854BIxxYwI6LJDpp wFpZ0QxIBMrhPiaEtD7e7 P8Ln8VmJBzP5VkR5n2U4W kPjwvdHI+PC90 UPLdCT36sLFzeFQil9awm Ez5CbXnOBFaDAW1pPbrSY tlj5JvIFAsF33qgSJxj3W 6IGNvbGxhcHNl EmZnwOF8cJ4bSIblhfpra 3qaaudhYftbh3trop00bO 55A40zADnnHFNuLWNoKOP xSNMkdNizjw3x bF4pPm7+HNGzuJS0uMI0d I9rLuTlJeZ2JKnqY728Kz GfuNOxMoklm6ysh2rpjUy 9IjIwJSIgdmFs iMciHFW7v7CtFm71D95wH HdpZHRoPSIyMCUiIHZhbG pyvg9arM0gRi2+EW7yv2y etf81vP19jHG+ RJPeTVU6jWtzAGgmKLTyk Y0pDBsdEaB5WGQzGkIgbM 26nDVzXKecHt7zzUjkjWd jBJ0rJBQvaraf p776NqDau4ztOXXemOPjG EcdKFL5O71cf1D2EXGsUP PxBTE1jMX5vE3qiHbjyms gbGVmdDsgdmVy tClfWGabIRoxO718DQDkn DsdXqFhpFEiG3ainwDXJY 1lOjwvdGQ+QRGyAXE3iEu eFOhlZCDlbL4d ERVhI2e4CmWkGxZ6HZshG 5HqyoE2KCQuhBHtOTDioQ NQcK1qtlwfi6kkjdraRlL qALEhWEw1YTn3 INEtsUuxOeLeJGR8KrX4Z SD7sBEfyS3qjNcnhdhpoA 9wOyc+RklOOjwvdGQ+PHR xRCM2wHrhSGgs KOZmfJ0tDVYuY4z9OtMxH bQ8SAmtG8MkpuZ5VVWksO ZmUIWzqDQAaF3jntpju3v vcjogIzAwMDAw FJi3JDa2YFGzdNljXwMqC WS0BhT4ZSP5cYWbfP0pdV lqoszauB4oDxh+TVJOOjw vdGQ+PHRkIHN0 aFoaEFcsXDZnwB1iLCBcB 6s6CpQsXiK7ZSjrS0Ndgo J0QJOexWAyBHIbnZARtK2 bziwiq0ogwpez DoJkFBNxKXi0OMe5IPQyj TktQkKfZGU8CpF2WBO1rG IrgV0wvPnbhsdphL4nNcw +ZQO4GGL8EK62 MS06V9HnEtgnsRKfmCO+P HRhYmxlIHdpZHRoPScxMD UaUhTcwYidMB4nOf3hAKF yLWNvbGxhcHNl Oi (more content not included)... Normal [facility] Auto Diffon 08-24-2020 Basophils/100 WBC (Bld) 1.0 % Normal 0.0-2.0 [facility] Comment on above: Order Comment: Order Added by Discern Expert. Performed By: #### 1 0985991, 8807922, 3493148, 74996004, 0197802, 6143995, 71441614, 11909676 ####[address] [place] [address] Basophils/Leukocyte s Auto (Bld) [Pure # fraction] 0.1 E9/L Normal 0.0-0.2 [facility] Comment on above: Order Comment: Order Added by Discern Expert. Performed By: #### 1 5980789, 7552326, 5962855, 11821341, 4080982, 4761111, 28009480, 95756286 ####[address] [place] [address] Eosinophils/100 WBC (Bld) 2.5 % Normal 0.0-8.0 [facility] Comment on above: Order Comment: Order Added by Discern Expert. Performed By: #### 1 1162690, 9963098, 3127675, 59532602, 5843406, 9373014, 20726756, 62100932 ####[address] [address] Eosinophils/Leukocy tobi Auto (Bld) [Pure # fraction] 0.3 E9/L Normal 0.0-0.5 [facility] Comment on above: Order Comment: Order Added by Discern Expert. Performed By: #### 1 8932358, 3658629, 0730513, 03884885, 0931464, 2697086, 26891539, 11580215 ####[address] [place] [address] Lymphocytes/100 WBC (Bld) 21.0 % Normal 14.0-50.0 [facility] Comment on above: Order Comment: Order Added by Discern Expert. Performed By: #### 1 4751718, 5824185, 7930938, 80684271, 7274917, 3934397, 75302132, 37922926 ####[address] [place] [address] Lymphocytes/Leukocy tobi Auto (Bld) [Pure # fraction] 2.1 E9/L Normal 1.0-4.0 [facility] Comment on above: Order Comment: Order Added by Crystal Expert. Performed By: #### 1 5768456, 0017270, 2921466, 08658780, 4503653, 3574443, 03275713, 87375333 ####[address] [place] [address] Monocytes/100 WBC (Bld) 6.2 % Normal 4.0-14.0 [facility] Comment on above: Order Comment: Order Added by Discern Expert. Performed By: #### 1 3054585, 1574369, 4347560, 52272554, 6575020, 0014724, 70586698, 20835186 ####[address] [address] Monocytes/Leukocyte s Auto (Bld) [Pure # fraction] 0.6 E9/L Normal 0.2-1.0 [facility] Comment on above: Order Comment: Order Added by Crystal Expert. Performed By: #### 1 0940680, 4895775, 6360061, 47290535, 7783586, 1946407, 91544872, 09226458 ####[address] [address] Neutrophils/100 WBC (Bld) 69.3 % Normal 36.0-75.0 [facility] Comment on above: Order Comment: Order Added by Crystal Expert. Performed By: #### 1 0330163, 0573961, 1659675, 42187734, 4024688, 4530538, 66777455, 40837371 ####[address] [place] [address] Neutrophils/Leukocy tobi Auto (Bld) [Pure # fraction] 6.9 E9/L Normal 2.0-7.5 [facility] Comment on above: Order Comment: Order Added by Crystal Expert. Performed By: #### 1 2218246, 6417570, 2960899, 72460650, 9400787, 6466302, 77692633, 64503878 ####[address] [place] [address] BMPon 08-24-2020 Creatinine [Mass/Vol] 1.1 mg/dL Normal 0.5-1.3 [facility] Comment on above: Performed By: #### 1 4316863, 6126601, 2894439, 30381764, 1271313, 3644563, 43696597, 03296471 ####[facility] [address] [place] [address] Urea nitrogen [Mass/Vol] 19 mg/dL Normal 5-21 [facility] Comment on above: Performed By: #### 1 0944750, 4824348, 3211632, 34800903, 5958766, 6380144, 54383516, 07629568 ####[facility] [address] [place] [address] Urea nitrogen/Creatinine [Mass ratio] 17 No Units Normal 10-20 [facility] Comment on above: Performed By: #### 1 5033297, 2097704, 0701606, 90727028, 9217271, 0009534, 36574978, 42205098 ####[facility] [address] [place] [address] Anion gap [Moles/Vol] 14 mmol/L Normal 6-16 [facility] Comment on above: Performed By: #### 1 4201794, 7742707, 6493831, 34296844, 1430528, 8330797, 32054601, 71177721 ####[facility] [address] [place] [address] Calcium [Mass/Vol] 9.4 mg/dL Normal 8.9-11.1 [facility] Comment on above: Performed By: #### 1 1484274, 0710950, 7239316, 76046230, 2067512, 4134870, 78865986, 19577319 ####[facility] [address] [place] [address] Chloride [Moles/Vol] 94 mmol/L Low 101-111 [facility] Comment on above: Performed By: #### 1 5463553, 7862334, 1034178, 46411101, 0040434, 8881374, 87113026, 80567966 ####[facility] [address] [place] [address] CO2 [Moles/Vol] 29 mmol/L Normal 21-31 [facility] Comment on above: Performed By: #### 1 3122539, 7891523, 1031039, 81056340, 4682840, 0933132, 64741165, 75470373 ####[facility] [address] [place] [address] Glucose [Mass/Vol] 103 mg/dL Normal 55-199 [facility] Comment on above: Result Comment: If t his glucose result represents a fasting glucose, interpretation should refer to the following reference range: 55-99 mg/dL Performed By: #### 1 5588627, 0594326, 2669997, 61998218, 9189240, 0648406, 49330780, 88375534 ####[facility] [address] [place] [address] Potassium [Moles/Vol] 4.0 mmol/L Normal 3.5-5.3 [facility] Comment on above: Performed By: #### 1 6357894, 2268497, 7391160, 03359283, 5752803, 7424382, 92832240, 05733444 ####[facility] [address] [place] [address] Sodium [Moles/Vol] 133 mmol/L Low 135-145 [facility] Comment on above: Performed By: #### 1 7087882, 1909012, 4270322, 65315121, 1912781, 0496404, 50534218, 82669831 ####[facility] [address] [place] [address] BNPon 08-24-2020 Natriuretic peptide B (Bld) [Mass/Vol] 17 pg/mL Normal 5-80 [facility] Comment on above: Performed By: #### 1 6338095, 4746458, 3302553, 38458250, 0218229, 7405738, 83616323, 30492747 ####[address] [place] [address] CBC w/ Auto Diffon Erythrocyte distribution width (RBC) [Ratio] 12.9 % Normal 10.9-14.2 [facility] Comment on above: Performed By: #### 1 9005150, 0213065, 5975242, 81804386, 6953491, 6547967, 53256112, 93596790 ####[address] [place] [address] Hematocrit (Bld) [Volume fraction] 44.4 % Normal 37.7-49.0 [facility] Comment on above: Performed By: #### 1 3436661, 9805798, 9181762, 08851498, 2185968, 9780331, 71480962, 02862603 ####[address] [address] Hemoglobin (Bld) [Mass/Vol] 15.3 g/dL Normal 13.5-17.5 [facility] Comment on above: Performed By: #### 1 2321556, 0214467, 9048365, 44448773, 4691748, 6957870, 97073684, 63203638 ####[address] [place] [address] MCH (RBC) [Entitic mass] 31.5 pg Normal 27.0-34.0 [facility] Comment on above: Performed By: #### 1 1045708, 0267307, 8602514, 26076912, 1832230, 0515500, 00539824, 09254654 ####[address] [place] [address] MCHC (RBC) [Mass/Vol] 34.4 g/dL Normal 31.4-36.0 [facility] Comment on above: Performed By: #### 1 9751708, 9779089, 1356284, 23707266, 8668620, 1722620, 64351726, 85017528 ####[facility] [address] [place] [address] MCV (RBC) [Entitic vol] 91.6 fL Normal 80.0-100.0 [facility] Comment on above: Performed By: #### 1 9656573, 1649843, 6053525, 58712931, 2988247, 4879640, 61275048, 88090565 ####[address] [place] [address] Platelet mean volume (Bld) [Entitic vol] 8.4 fL Normal 6.4-10.8 [facility] Comment on above: Performed By: #### 1 8814536, 0089243, 7121668, 12661610, 3006681, 9531266, 74163619, 23038086 ####[address] [address] Platelets (Bld) [#/Vol] 289.0 E9/L Normal 150.0-500.0 [facility] Comment on above: Performed By: #### 1 0563286, 8621654, 2653449, 87963500, 1865234, 1804470, 90867512, 84085568 ####[address] [address] RBC (Bld) [#/Vol] 4.8 E12/L Normal 4.3-5.9 [facility] Comment on above: Performed By: #### 1 1840695, 9710765, 0802022, 81533289, 1716707, 6501483, 36068474, 90065496 ####[address] [place] [address] WBC corrected for nucl RBC Auto (Bld) [#/Vol] 9.9 E9/L Normal 4.0-11.0 [facility] Comment on above: Performed By: #### 1 4323529, 9674445, 3751594, 08146891, 4218969, 8415234, 58852369, 76954681 ####[facility] [place] [address] CTA Cheston 08-24-2020 CTA Chest Exam Date/Time: [...] 370 Contrast amount in ml's: 78 Normal [facility] Consent for Treatmenton 08-07 Consent for Treatment [id number]:127 Normal [facility] D-Dimeron 08-24-2020 Fibrin D-dimer FEU (PPP) [Mass/Vol] 845 ng/mL Abnormal 215-500 [facility] Comment on above: Result Comment: Resu [...] infections Liver cirrhosis Performed By: #### 1 5521310, 7601719, 3234780, 53911189, 0092810, 3474335, 22200043, 20613542 ####[address] [place] [address] Discharge Instructionson Discharge Instructions [id number]:127 Normal [facility] ED Clinical Summaryon 2020 ED Clinical Summary [place] [id number] ED Clinical Summary Person Information Name: LILIANA MICHAELS Cem Kristine[facility] Age: 55 Years : 1965 Sex: Male Language: Azeri PCP: SIMONE JEAN BAPTISTE DC Marital Status: Single Phone: [phone] Visit Id: Visit Reason: Rib/trunk pain-swelling; SIDE [...] 08/24/2020 03:27:58 08/24/2020 03:27:58 08/24/2020 03:27:58 ADDRESS: [address] [place] [id number] PHYS DOC NOTES: MEDICAL INFORMATION: Prescriptions Given: New Medications [id number], [address], [place] [id number], [phone] azithromycin (Zithromax TRI-AMIRA 500 mg oral tablet) [...] When: SIMONE JEAN BAPTISTE [address] [place] [address] Business (1) In 1 day 08/25/2020 Comments: Patient is advised to follow-up with his primary care physician in 1 to 2 days. He is also advised to come back to the emergency department if symptoms get worse. DIAGNOSIS: 1:Rib pain on left side Normal [facility] ED Note-Physicianon 08-25-19 ED Note-Physician Basic [...] date 08/24/20 2:30:00 EDT Rapid COVID Antigen ([facility] [place]) Orders: albuterol-ipratropium , 3 mL, Soln-Inh, Inhalation, Once, Stop date 08/24/20 0:16:00 EDT, STAT, Start date 08/24/20 0:16:00 EDT azithromycin, 500 mg = 1 tab(s), Oral, Daily, # 3 tab(s), Refills(s) 0, Pharmacy: [id number], 163, cm, 08/24/20 0:04:00 EDT, Height/Length Dosing, 101, kg, 08/24/20 0:04:00 EDT, Weight Dosing famotidine, 20 mg = 1 tab(s), Tab, Oral, Once, Stop date 08/24/20 0:17:00 EDT, STAT, Start date 08/24/20 0:17:00 EDT lidocaine topical, 1 patch(es), Topical, Daily, 7 patch(es), Refill(s) 0, apply 12 hours on and 12 hours off daily, [id number], 163, cm, 08/24/20 0:04:00 EDT, Height/Length Dosing, 101, kg, 08/24/20 0:04:00 EDT, Julian (more content not included)... Normal [facility] Comment on above: Result Comment: Elec [...] Document Reviewed: 11/28/2008 ExitCare? Patient Information ?2015 [employer]. This information is not intended to replace advice given to you by your health care provider. Make sure you discuss any questions you have with your health care provider. Normal [facility] ED Patient Summaryon 021 ED Patient Summary [place] [id number] Patient Discharge Instructions Person Information Name: LILIANA MICHAELS Age: 55 Years Arrival Date: 08/23/2020 23:48:11 Discharge Diagnosis: 1:Rib pain on left side Primary Care Physician: SIMONE JEAN BAPTISTE DC Provider Information Primary Provider: Pia LANE, David Advanced Major Assembly Lineman:None The exam and treatment you received in the Emergency Department were for an urgent problem and are not intended as complete care. It is important that you follow up with a doctor, nurse practitioner, or physician?s office clerk assistant for ongoing care. If your symptoms become [...] Address: When: SIMONE JEAN BAPTISTE [address] [place] [address] Business (1) In 1 day 08/25/2020 Comments: [...] opioids can be used to help relieve qpqehwey-ce-ctjeax pain and are often prescribed following a [...] be struggling (more content not included)... Normal [facility] PT & PTTon 08-24-2020 aPTT Coag (PPP) [Time] 30.2 second(s) Normal 25.1-36.5 [facility] Comment on above: Result Comment: Hepa rin therapeutic range (represented by Anti-Factor Xa activity of 0.2 - 0.4 U/mL) corresponds to PTT of 56.6 - 109.0 sec. Performed By: #### 1 2443471, 3326194, 2243808, 63196714, 3636886, 3903320, [id number], [id number] ####[facility] [address] [place] [address] INR Coag (PPP) [Relative time] 1.0 {INR} Invalid Interpretation Code [facility] Comment on above: Result Comment: INR results are specifically intended to assess patients stabilized on long-term Anticoagulation therapy suggested INR?s ?Less Intensive Anticoagulation? 2.0 ? 3.0 Conventional Range 3.0 ? 4.5 Performed By: #### 1 [id number], [id number], 4624452, 92061696, 6074196, 7556919, 21384713, 07900748 ####[facility] [address] [place] [address] PT Coag (PPP) [Time] 11.6 second(s) Normal 10.2-12.9 [facility] Comment on above: Performed By: #### 1 [id number], 9932339, 0666567, 65751814, 4047169, 9392454, 00348856, [id number] ####[facility] [address] [place] [address] RAD - Preliminary Cat Scan R eporton 08-24-2020 RAD - Preliminary Cat Scan Report [id number] Normal [facility] Rapid COVID Antigen (MC)on 08-24-2020 Rapid COV Int NEG Ctl Pass Normal [facility] Comment on above: Performed By: #### 2 [id number] ####[facility] [address] [place] [address] Rapid COV Int POS Ctl Pass Normal [facility] Comment on above: Performed By: #### 2 [id number] ####[facility] [address] [place] [address] SARS-CoV-2 (COVID-19) RNA KATT+probe Ql (Unsp spec) Not detected Normal Not Detected [facility] Comment on above: Result Comment: The [employer]? System for Rapid Detection of SARS-CoV-2 is [...] or revoked sooner. Performed By: #### 2 [id number] ####[address] [place] [address] Employed in Healthcare NO Normal [facility] Comment on above: Performed By: #### 2 [id number] ####[address] [place] [address] First Test Unknown Normal [facility] Comment on above: Performed By: #### 2 [id number] ####[facility] [address] [facility] [place] [address] Hospitalized? NO Normal [facility] Comment on above: Performed By: #### 2 [id number] ####[address] [place] [address] ICU NO Normal [facility] Comment on above: Performed By: #### 2 [id number] ####[facility] [address] [place] [address] ? NO Normal [facility] Comment on above: Performed By: #### 2 [id number] ####[facility] [address] [place] [address] Resides in a Congregate Care Setting NO Normal [facility] Comment on above: Performed By: #### 2 [id number] ####[facility] [address] [place] [address] Symptomatic as defined by [facility] YES Normal [facility] Comment on above: Performed By: #### 2 [id number] ####[address] [address] Troponin 0 Hr.on 08-24-2020 Troponin I.cardiac [Mass/Vol] 4.10 pg/mL Low 15.90-38.40 [facility] Comment on above: Result Comment: The 95% CI (Confidence Interval) PPV (Positive Predictive Value) for myocardial infarction in females is 38 pg/mL, in males 51 pg/mL. The results should be used in conjunction with clinical conditions of myocardial infarction. (Access High Sensitivity Troponin I Instructions For Use, [employer], December 2017) Performed By: #### 1 [id number], [id number], 4573515, 94867189, 5013252, 9462194, 33547821, 63547112 ####[facility] [address] [place] [address] Troponin 3 Hr.on 08-24-2020 Troponin I.cardiac [Mass/Vol] 4.40 pg/mL Low 15.90-38.40 [facility] Comment on above: Result Comment: The 95% CI (Confidence Interval) PPV (Positive Predictive Value) for myocardial infarction in females is 38 pg/mL, in males 51 pg/mL. The results should be used in conjunction with clinical conditions of myocardial infarction. (Access High Sensitivity Troponin I Instructions For Use, [employer], December 2017) Performed By: #### 1 [id number] ####[facility] [address] [place] [address] XR Chest Single Viewon 08-24 XR Chest [...] V. Transcribed by: VIVIAN Technologist: DAT Perry [facility] eGFRon 08-24-2020 GFR/1.73 sq M.predicted among blacks MDRD (S/P/Bld) [Vol rate/Area] mL/min/{1.73_m2} Normal >=59 [facility] Comment on above: Order Comment: Order added by Discern Expert. Result Comment: eGFR is race adjusted. AA=. Performed By: #### 1 [id number], 5308089, 5605961, 01934737, 4899943, 5114414, 32278031, 53243275 ####[facility] [address] [place] [address] GFR/1.73 sq M.predicted among non-blacks MDRD (S/P/Bld) [Vol rate/Area] mL/min/{1.73_m2} Normal >=59 [facility] Comment on above: Order Comment: Order added by Discern Expert. Result Comment: [employer] jeniffer kidney disease could be indicated at eGFR's of less than 60 mL/min/1.73m2. Kidney failure is indicated at less than 15 mL/min/1.73m2. Performed By: #### 1 [id number], [id number], [id number], [id number], [id number], [id number], [id number] ####[facility] [id number] [place] [address] HIP RIGHT 1 OR 2 VWS WITH PE LVISon 07-24-2020 HIP RIGHT 1 OR 2 VWS WITH PELVIS [facility] [address] [place] [id number] Patient Name: LILIANA MICHAELS : 1965 [...] Electronically signed: Ana M Ponce. Transcribed by: [email or web address], User Resident: Electronically Signed by: ANA M PONCE @ 07/24/2020 10:01 AM Normal [facility] Comment on above: Order Comment: Views (X-RAY, HIP): Radiologic Protocol HIP RIGHT 1 OR 2 VWS WITH PE LVISon 04-24-2020 HIP RIGHT 1 OR 2 VWS WITH PELVIS [facility] [address] [place] [id number] Patient Name: LILIANA MICHAELS : 1965 Sex: M Age: Race: White Pt. Location: Patient Status: D Ordered Date: 04/24/2020 10:40:00 AM Completed Date: 04/24/2020 10:48 AM Requesting Provider: JEY ELISE Attending Provider: Report Copy To: Signs & Symptoms: Z96.641 Presence of right artificial hip joint I10 History: [place] Comments: Views (X-RAY, HIP): Radiologic Protocol Exam: HIP RIGHT 1 OR 2 VWS WITH PELVIS HIP RIGHT 1 OR 2 VWS WITH PELVIS HISTORY: Hip replacement, follow-up. COMPARISON: 03/14/2020. IMPRESSION: 1. Redemonstrated hip prosthesis, no hardware complication or acute abnormality. Electronically signed: Ed España. Transcribed by: [email or web address], User Resident: Electronically Signed by: ED ESPAÑA @ 04/25/2020 08:22 AM Normal [facility] Comment on above: Order Comment: Views (X-RAY, HIP): Radiologic Protocol Operative Reporton 0 Operative Report MR#: [id number] [facility] Pt. Name: Liliana Michaels Room #: 6AB [id number] Discharge 03/15/2020 Date: Birthdate: 1965 OPERATIVE REPORT [...] a (more content not included)... Normal [facility] BASIC METABOLIC PANELon 11-0 Calcium [Mass/Vol] 8.8 mg/dL Normal 8.6-10.3 [facility] Comment on above: Order Comment: Views (X-RAY, HIP): Radiologic Protocol Performed By: #### 0 0071 ####[facility] [place] [address], [facility] Chloride [Moles/Vol] 98 mmol/L Normal 98-107 [facility] Comment on above: Order Comment: Views (X-RAY, HIP): Radiologic Protocol Performed By: #### 0 0071 ####[facility] [place] [address], [facility] CO2 [Moles/Vol] 30 mmol/L Normal 21-31 [facility] Comment on above: Order Comment: Views (X-RAY, HIP): Radiologic Protocol Performed By: #### 0 0071 ####[place] [id number] Creatinine [Mass/Vol] 0.96 mg/dL Normal 0.70-1.30 [facility] Comment on above: Order Comment: Views (X-RAY, HIP): Radiologic Protocol Performed By: #### 0 0071 ####[facility] GFR/1.73 sq M.predicted among blacks MDRD (S/P/Bld) [Vol rate/Area] mL/min/{1.73_m2} Normal >60 [facility] Comment on above: Order Comment: Views (X-RAY, HIP): Radiologic Protocol Performed By: #### 0 0071 ####[facility] [place] [address], [facility] GFR/1.73 sq M.predicted among non-blacks MDRD (S/P/Bld) [Vol rate/Area] mL/min/{1.73_m2} Normal >60 [facility] Comment on above: Order Comment: Views (X-RAY, HIP): Radiologic Protocol Performed By: #### 0 0071 ####[facility] Glucose [Mass/Vol] 151 mg/dL High 70-[address] [facility] Comment on above: Order Comment: Views (X-RAY, HIP): Radiologic Protocol Performed By: #### 0 0071 ####[place] [id number] Potassium [Moles/Vol] 4.4 mmol/L Normal 3.5-5.1 [facility] Comment on above: Order Comment: Views (X-RAY, HIP): Radiologic Protocol Performed By: #### 0 0071 ####[facility] Sodium [Moles/Vol] 133 mmol/L Low 136-[address] [facility] Comment on above: Order Comment: Views (X-RAY, HIP): Radiologic Protocol Performed By: #### 0 0071 ####[facility] Urea nitrogen [Mass/Vol] 20 mg/dL Normal 7-25 [facility] Comment on above: Order Comment: Views (X-RAY, HIP): Radiologic Protocol Performed By: #### 0 0071 ####[address] CBC COMPLETE BLOOD COUNTon 05-15-2019 Erythrocyte distribution width (RBC) [Ratio] 12.2 % Normal 11.5-15.0 [facility] Comment on above: Order Comment: No: D o not add to previous draw Performed By: #### 5 0608 #### [facility] [address] [place] [address], [facility] Hematocrit (Bld) [Volume fraction] 42.2 % Normal 39.0-50.0 [facility] Comment on above: Order Comment: No: D o not add to previous draw Performed By: #### 5 0608 #### [facility] [address] [place] [address], [facility] Hemoglobin (Bld) [Mass/Vol] 13.9 g/dL Normal 13.0-17.0 [facility] Comment on above: Order Comment: No: D o not add to previous draw Performed By: #### 5 0608 #### [facility] [address] [place] [address], [facility] MCH (RBC) [Entitic mass] 31.4 pg Normal 27.0-33.0 [facility] Comment on above: Order Comment: No: D o not add to previous draw Performed By: #### 5 0608 #### [facility] [address] [place] [address], [facility] MCHC (RBC) [Mass/Vol] 32.9 g/dL Normal 32.0-35.0 [facility] Comment on above: Order Comment: No: D o not add to previous draw Performed By: #### 5 0608 #### [facility] [address] [place] [address], [facility] MCV (RBC) [Entitic vol] 95.5 fL Normal 82.0-98.0 [facility] Comment on above: Order Comment: No: D o not add to previous draw Performed By: #### 5 0608 #### [facility] [address] [facility] [address], [facility] Nucleated RBC/100 WBC (Bld) [Ratio] 0 % Normal 0-0 [facility] Comment on above: Order Comment: No: D o not add to previous draw Performed By: #### 5 0608 #### [facility] [address] [place] [address], [facility] PLAT CNT 254 10*3/uL Normal 150-400 The [facility] Comment on above: Order Comment: No: D o not add to previous draw Performed By: #### 5 0608 #### [facility] [address] [place] [address], [facility] RBC (Bld) [#/Vol] 4.42 10*6/uL Normal 4.20-5.70 [facility] Comment on above: Order Comment: No: D o not add to previous draw Performed By: #### 5 0608 #### [facility] [address] [facility] [place] [address], [facility] WBC (Bld) [#/Vol] 14.44 10*3/uL High 4.00-10.60 [facility] Comment on above: Order Comment: No: D o not add to previous draw Performed By: #### 5 0608 #### [facility] [address] [place] [address], [facility] POC GLUCOSE LABon 03-15-2020 Glucose [Mass/Vol] 193 mg/dL High 70-100 [facility] Comment on above: Performed By: #### 8 5499 #### [facility] [address] [facility] [place] [address], [facility] CBC W/DIFFon 03-14-2020 ABS IMM GRANS 0.2 10*3/uL Normal 0.0-0.2 The [facility] Comment on above: Performed By: #### 5 0103 ####[facility] [facility] [place] [address], [facility] ABS NEUTROPHILS 8.0 10*3/uL High 1.6-7.6 The [facility] Comment on above: Performed By: #### 5 0103 ####[facility] [facility] [place] [address], [facility] Basophils (Bld) [#/Vol] 0.1 10*3/uL Normal 0.0-0.2 [facility] Comment on above: Performed By: #### 5 0103 ####[facility] [place] [address], [facility] Basophils/100 WBC (Bld) 1.1 % High 0.0-1.0 [facility] Comment on above: Performed By: #### 5 0103 ####[facility] [facility] [place] [address], [facility] Eosinophils (Bld) [#/Vol] 0.3 10*3/uL Normal 0.0-0.5 [facility] Comment on above: Performed By: #### 5 0103 ####[place] [address] [facility] [place] [address], [facility] Eosinophils/100 WBC (Bld) 2.7 % Normal 0.0-6.0 [facility] Comment on above: Performed By: #### 5 3 ####[place] [address] Erythrocyte distribution width (RBC) [Ratio] 12.3 % Normal 11.5-15.0 [facility] Comment on above: Performed By: #### 5 3 ####[facility] [facility] [place] [address], [facility] Hematocrit (Bld) [Volume fraction] 50.5 % High 39.0-50.0 [facility] Comment on above: Performed By: #### 5 3 ####[facility] [facility] [place] [address], [facility] Hemoglobin (Bld) [Mass/Vol] 17.3 g/dL High 13.0-17.0 [facility] Comment on above: Performed By: #### 5 3 ####[facility] IMMATURE GRANS 1.4 % High 0.0-1.0 The [facility] Comment on above: Performed By: #### 5 0103 ####[facility] [place] [address] Lymphocytes (Bld) [#/Vol] 1.8 10*3/uL Normal 1.2-4.0 [facility] Comment on above: Performed By: #### 5 3 ####[address] Lymphocytes/100 WBC (Bld) 15.6 % Low 20.0-45.0 [facility] Comment on above: Performed By: #### 5 102 ####[address] MCH (RBC) [Entitic mass] 31.7 pg Normal 27.0-33.0 [facility] Comment on above: Performed By: #### 5 102 ####[address] MCHC (RBC) [Mass/Vol] 34.3 g/dL Normal 32.0-35.0 [facility] Comment on above: Performed By: #### 5 3 ####[address] MCV (RBC) [Entitic vol] 92.7 fL Normal 82.0-98.0 [facility] Comment on above: Performed By: #### 5 3 ####[address] Monocytes (Bld) [#/Vol] 0.9 10*3/uL Normal 0.1-1.0 [facility] Comment on above: Performed By: #### 5 3 ####[facility] [facility] [place] [address], [facility] MONOS 8.2 % Normal 5.0-12.0 [facility] Comment on above: Performed By: #### 5 0103 ####[facility] [facility] [address], [facility] Neutrophils/100 WBC (Bld) 71.0 % Normal 40.0-72.0 [facility] Comment on above: Performed By: #### 5 0103 ####[facility] [facility] [place] [address], [facility] Nucleated RBC/100 WBC (Bld) [Ratio] 0 % Normal 0-0 [facility] Comment on above: Performed By: #### 5 0103 ####[facility] [facility] [place] [address], [facility] PLAT CNT 301 10*3/uL Normal 150-400 The [facility] Comment on above: Performed By: #### 5 0103 ####[facility] [facility] [place] [address], [facility] RBC (Bld) [#/Vol] 5.45 10*6/uL Normal 4.20-5.70 The [facility] Comment on above: Performed By: #### 5 0103 ####[facility] [facility] [place] [address], [facility] WBC (Bld) [#/Vol] 11.22 10*3/uL High 4.00-10.60 [facility] Comment on above: Performed By: #### 5 0103 ####[facility] [facility] [place] [address], [facility] HIP RIGHT 1 OR 2 VWS WITH PE LVISon 03-14-2020 HIP RIGHT 1 OR 2 VWS WITH PELVIS [facility] [address] [place] [address] Patient Name: LILIANA MICHAELS : [...] purposes Electronically signed: Aria Baig. Transcribed by: [email or web address], User Resident: Electronically Signed by: ARIA BAIG @ 03/14/2020 03:44 PM Normal [facility] Comment on above: Order Comment: RT TH A POC GLUCOSE LABon 03-14-2020 Glucose [Mass/Vol] 222 mg/dL High 70-[address] [facility] Comment on above: Performed By: #### 8 5499 #### [facility] [address] [place] [address], [facility] Glucose [Mass/Vol] 217 mg/dL High 70-100 [facility] Comment on above: Performed By: #### 8 5499 ####[facility] [place] [address], [place] Glucose [Mass/Vol] 141 mg/dL High 70-100 [facility] Comment on above: Performed By: #### 8 5499 #### [facility] [address] [facility] [place] [address], [facility] PORTABLE HIP RIGHT 1 OR 2 VW S WITH PELVISon 03-14-2020 PORTABLE HIP RIGHT 1 OR 2 VWS WITH PELVIS [facility] [address] [place] [id number] Patient Name: LILIANA MICHAELS : 1965 Sex: [...] air Electronically signed: Aria Baig. Transcribed by: [email or web address], User Resident: Electronically Signed by: ARIA BAIG @ 03/14/2020 03:46 PM Normal [facility] Comment on above: Order Comment: Hardw are Evaluation, AP/Lateral TYPE AND SCREENon 03-14-2020 ABO INTERPRETATION O Normal [facility] Comment on above: Performed By: #### 6 2586 ####[facility] [facility].[address] RH INTERPRETATION Positive Normal The [facility] Comment on above: Performed By: #### 6 2586 ####[facility] [facility].[address] Vital Signs Date Time Vital Sign Value Performing Clinician Alisha pearson 07-14-2022 10:57-0500 Body height 162.56 cm Ishmael Simon [facility] 600 DO Work Phone: 07-14-2022 10:57-0500 Body mass index (BMI) [Ratio] 32.96 kg/m2 Ishmael Simon [facility]: [facility] 600 DO Work Phone: 07-14-2022 10:57-0500 Body surface area Derived from formula 1.92 m2 Ishmael Simon [facility] Phone: [facility] 600 DO Work Phone: 07-14-2022 10:57-0500 Body weight 87.09 kg Ishmael A Naderer Work Phone: [facility] 600 DO Work Phone: 07-14-2022 10:57-0500 Diastolic blood pressure 64 mm[Hg] Ishmael A Naderer Work Phone: [facility] 600 DO Work Phone: 07-14-2022 10:57-0500 Heart rate 34 /min Ishmael Rae Naderer Work Phone: [facility] 600 DO Work Phone: 07-14-2022 10:57-0500 Systolic blood pressure 118 mm[Hg] Ishmael Rae Naderer Work Phone: [facility] 600 DO Work Phone: 01-28-2022 09:37-0400 Body height 162.56 cm Ishmael Rae Naderer Work Phone: [facility] 600 DO Work Phone: 01-28-2022 09:37-0400 Body mass index (BMI) [Ratio] 30.9 kg/m2 Ishmael Rae Naderer Work Phone: [facility] 600 DO Work Phone: 01-28-2022 09:37-0400 Body surface area Derived from formula 1.87 m2 Ishmael Rae Naderer Work Phone: [facility] 600 DO Work Phone: 01-28-2022 09:37-0400 Body weight 81.65 kg Ishmael A Naderer Work Phone: [facility] 600 DO Work Phone: 01-28-2022 09:37-0400 Diastolic blood pressure 50 mm[Hg] Ishmael A Naderer Work Phone: [facility] 600 DO Work Phone: 01-28-2022 09:37-0400 Heart rate 41 /min Ishmael Simon Work Phone: [facility] 600 DO Work Phone: 01-28-2022 09:37-0400 Systolic blood pressure 112 mm[Hg] Ishmael Simon Work Phone: [facility] 600 DO Work Phone: Encounters Encounter Date [...] sit 15 minutes Ishmael Simon Work Phone: [facility] 600 DO Work Phone: Start: 07-14-2022 ambulatory [...] 02-16-2022 Chart Update Ishmael Simon Work Phone: [facility] 250 DO Work Phone: Start: 02-15-[address] Valentino Ferrer Facility:[id number] Start: 01-28-[address] Ishmael Simon Facility: Start: 01-28-2022 Office consultation new/estab patient 60 min Ishmael Simon Work Phone: [facility] 600 DO Work Phone: Start: 01-14-2022 End: 01-15-2022 ambulatory TERESO COLMENARES . Facility:[facility]1 Start: 01-01-2022 End: 01-02-[address] ISHMAEL SIMON Facility:[facility]1 Start: 12-15-2021 End: 12-15-[address] RICKY IBARRA . Facility:[facility]1 Start: 12-14-2021 Encounter for preprocedural laboratory examination DR RICKY IBARRA . [facility] Start: 12-12-2021 End: 12-13-[address] ISHMAEL SMION Facility:[facility]1 Start: 12-12-2021 End: 12-13-2021 Encounter for [...] Start: 10-03-2020 End: 10-04-2020 ambulatory SIMONE RUIZ Facility:[facility] Start: 03-26-2020 End: 04-10-2020 ambulatory JYE ELISE Facility:[facility] Start: 03-14-2020 End: 03-15-2020 ambulatory JEY R NILDA Facility:[facility] Procedures Date Procedure Procedure Detail Performing Clinician Start: 05-07-[address] ISHMAEL CROUCH Comment on above: Performed By: #### V ITAD, PSASC #### [facility] [address] [place] [address] Dr. Britt Mendoza Start: 03-15-2020 ANESTH HIP ARTHROPLASTY SIMONE RUIZ Start: 03-15-2020 TOTAL HIP ARTHROPLASTY JEY Marilee ELISE Start: 03-14-2020 Antibody screen SIMONE BOLIVAR Comment on above: Performed By: #### 6 2586 ####[place] [address] Colonoscopy Ishmael A Naderer Work Phone: [...] Valentino Ferrer, Status: Pen, Time: 8:30 AM [facility] 600 DO Work Phone: Start: 07-14-2022 FUV, Provider: Valentino Ferrer, Status: Pen, Time: 10:40 AM FUV, Provider: Valentino Ferrer, Status: Pen, Time: 10:40 AM [facility] 600 DO Work Phone: Start: 02-15-2022 STRESS JUICE, Provider : CARLITO MCKEONI NUCLEAR 01,[id number], Status: Pen, Time: 2:00 PM STRESS JUICE, Provider: CARLITO MCKEONI NUCLEAR 01,[id number], Status: Pen, Time: 2:00 PM [facility] 600 DO Work Phone: Payers Date Payer Category Payer Unknown [id number] 2.16.8 [id number] 1965 Unknown [id number] 2.16.8 40.1.480005.3.579.2.647 1965 Unknown [id number] 2.16.8 40.1.944795.3.579.2.647 1965 Unknown [id number] 2.16.8 40.1.423331.3.579.2.1068 1964 Unknown [id number] 2.16. 840.1.094925.3.579.2.356 1965 Unknown [id number] 2.16. 840.1.809284.3.579.2.356 1965 Unknown [id number] 2.16.84 0.1.699752.3.579.2.593 1964 Unknown [id number] 2.16.84 0.1.495726.3.579.2.593 1964 Unknown [id number] 2.16.84 0.1.278571.3.579.2.593 1964 Unknown [id number] 2.16.84 0.1.514450.3.579.2.593 1964 Unknown [id number] 2.16.84 0.1.365452.3.579.2.593 1964 Unknown [id number] 2.16.84 0.1.404436.3.579.2.593 1964 Unknown [id number] 2.16.84 0.1.656135.3.579.2.593 1964 Unknown [id number] 2.16.84 0.1.070878.3.579.2.593 1964 Unknown [id number] 2.16.84 0.1.858816.3.579.2.593 1964 Unknown [id number] 2.16.84 0.1.813057.3.579.2.593 1964 Unknown [id number] 2.16.84 0.1.127794.3.579.2.593 1964 Unknown [id number] 2.16.84 0.1.212627.3.579.2.593 1964 Unknown [id number] 2.16.84 0.1.100796.3.579.2.593 1964 Unknown [id number] 2.16.84 0.1.390440.3.579.2.593 1964 Unknown [id number] 2.16.84 0.1.558414.3.579.2.593 1964 Unknown [id number] 2.16.84 0.1.711835.3.579.2.593 1964 Unknown [id number] 2.16.84 0.1.528642.3.579.2.593 1964 Unknown [id number] 2.16.84 0.1.911442.3.579.2.593 1964 Unknown [id number] 2.16.84 0.1.997990.3.579.2.593 1964 Unknown [id number] 2.16.84 0.1.888290.3.579.2.593 1964 Unknown [id number] 2.16.84 0.1.148718.3.579.2.593 1964 Unknown [id number] 2.16.84 0.1.409302.3.579.2.593 1964 Unknown [id number] 2.16.84 0.1.991641.3.579.2.593 1964 Unknown [id number] 2.16.84 0.1.050110.3.579.2.593 1964 Unknown [id number] 2.16.840 .1.591280.3.579.2.1259 1960 Medicaid [id number] 1960 Medicare [id number] Unknown [id number] Unknown Social History Date Type Detail Facility No alcohol use No alcohol use [facility] Ta[place] DO Work Phone: Comment on above: 1 [...] right medial portion of his leg. [facility] 05-07-2022 Note CONSULTATION CONSULTATION DATE: 05/07/2022 HISTORY [...] three months' time unless otherwise indicated. [facility] 01-14-2022 Note CONSULTATION CONSULTATION DATE: 01/14/2022 HISTORY [...] it was recommended that he see a windows server engineer, which he did do. He did a Holter monitor study and is following up with his windows server engineer on 01/28/2022. Current medications include gabapentin 300 [...] agrees with the plan of care. [facility] 11-19-2021 Note CONSULTATION CONSULTATION DATE: 11/19/2021 This [...] to S1. 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 [facility] Signed and Approved by: TERESO COLMENARES . 11/27/2021 14:13:00 [facility] 10-22-2021 Note CONSULTATION CONSULTATION DATE: 10/22/2021 [...] patient agrees with the plan of care. [facility] Signed and Approved by: TERESO COLMENARES . 11/04/2021 16:23:[address] [facility] 10-01-2021 Note CONSULTATION CONSULTATION DATE: 10/01/2021 HISTORY [...] shape. He has seen Dr. Nunn in [place] in the past regarding his back, and [...] of the right groin and inner leg. Omi's point is non-tender bilaterally. MUSCULOSKELETAL: Motor [...] Approved by: TERESO COLMENARES . 10/08/2021 16:01:00 [facility] 08-31-2020 Note Microbiology PROCEDURE: Blood Culture [...] Locations R1: This test was performed at: [facility], [address] [place] [address], [facility]- , , [facility] Comment on above: Performed By: #### 1 [id number] ####[facility] [address] [place] [address] 08-31-2020 Note Microbiology PROCEDURE: Blood Culture Charcoal [R1] SOURCE: Blood BODY SITE: Arm R COLLECTED DATE/TIME: 08/24/2020 00:35 EDT RECEIVED DATE/TIME: 08/24/2020 03:42 EDT START DATE/TIME: 08/24/2020 03:42 EDT FREE TEXT SOURCE: Peripheral vein site #[address], David Gutierrez MD FINAL REPORTS Final Report [] Verified Date/Time: 08/31/2020 07:00 EDT No growth at 7 days. Performing Locations R1: This test was performed at: [facility], [address] [place] [address], [id number] , [place], [facility] Comment on above: Performed By: #### 1 [id number] ####[facility] [address] [place] [address] History of Present illness Narrative Patient is here for cardiovascular evaluation for second opinion in regard to documents resting sinus bradycardia. The patient is 56-year-old with history of tobacco use and COPD was evaluated recently due to shortness of breath and his stress test showed questionable inferior wall ischemia. This led to a cardiac evaluation in [place] and its not clear to me whether [...] his recent ischemic evaluation5 follow-up in 6 [facility] 600 DO Work Phone: History of Present illness Narrative Patient is here for cardiovascular evaluation for second opinion in regard to documents resting sinus bradycardia. The patient is 56-year-old with history of tobacco use and COPD was evaluated recently due to shortness of breath and his stress test showed questionable inferior wall ischemia. This led to a cardiac evaluation in [place] and its not clear to me whether [...] his recent ischemic evaluation5 follow-up in 6 [facility] Work Phone: History of Present illness Narrative Patient is here for cardiovascular evaluation for second opinion in regard to documents resting sinus bradycardia. The patient is 56-year-old with history of tobacco use and COPD was evaluated recently due to shortness of breath and his stress test showed questionable inferior wall ischemia. This led to a cardiac evaluation in [place] and its not clear to me whether [...] his recent ischemic evaluation5 follow-up in 6 [facility] Work Phone: History of Present illness Narrative [...] ischemic evaluation. He underwent cardiac catheterization in [place] which showed no significant obstructive disease3. Hypertension4. [...] EKG or earlier if the need arise [facility] 600 DO Work Phone: Summary Purpose Family [...] MICHAELS is being seen for npv/ jenelle.LILIANA IMCHAELS is being seen for a month follow-up of. Additional Source Comments (unrecognized sect ion and content) No Status Records FoundNo Status Records FoundNo Status Records FoundNo Status Records FoundNo Status Records FoundNo Status Records FoundNo Status Records Found INFORMATION SOURCE (unrecogn ized section and content) DATE CREATED AUTHOR [facility]/06/2021 [facility] DATE CREATED AUTHOR AUTHOR'S ORGANIZ ATION 03/12/2021 [facility] DATE CREATED AUTHOR AUTHOR'S ORGANIZ ATION 02/16/2022 [facility] DATE CREATED AUTHOR AUTHOR'S ORGANIZ ATION 07/16/2022 [facility] DATE CREATED AUTHOR AUTHOR'S ORGANIZ ATION 07/16/2022 [employer] DATE CREATED AUTHOR AUTHOR'S ORGANIZ ATION 09/17/2022 [facility] DATE CREATED AUTHOR AUTHOR'S ORGANIZ ATION 04/15/2023 [facility] FOR RECORDS PERTAINING TO PATIENTS WHO [...] BE BASED ON THE PRIMARY CLINICAL RECORDS. [employer] provides no warranty or guarantee of the accuracy or completeness of information in this document.
[2023-05-26 15:49] LABS: Microalbumin Urine Random <1.3 mg/dL (<=30.0)
--- OUTSIDE RECORDS SUMMARY | 2023-05-28 08:16 | XMS_ITS | CCD ---
Author Name Unknown Address [address] [place] [address] Organization [facility] Care Team Providers Care Shirt Finisher Name Role Phone SIMONE RUIZ Admitting Unavailable SIMONE RUIZ Attending Unavailable ISHMAEL SIMON Referring Unavailable ISHMAEL SIMON Primary Care Unavailable JEY ELISE Attending Unavailable JEY ELISE Surgeon Unavailable [place] Procedure Practitioner Unavailab ISHMAEL Campoverde Primary Care Unavailable ISHMAEL SIMON Referring Unavailable JEY ELISE Admitting Unavailable JEY ELISE Attending Unavailable ISHMAEL SIMON Primary Care Unavailable ISHMAEL SIMON Referring Unavailable JEY ELISE R Admitting Unavailable Ishmael Simon Unavailable Unavailable Unavailable Carissa, Dr. Armstrong Attending Unavaila ble Carissa, Dr. Armstrong Referring Unavaila ble Alfred, Dr. Ishmael Vallejo Primary Care Anupamavai labjayla Ferrer, Dr. Armsrtong Attending Unavaila loulou Ferrer, Dr. Armstrong Referring Unavaila ble Alfred, Dr. Ishmael Vallejo Primary Care Unavai labjayla Simon, Dr. Ishmael Vallejo Primary Care [...] Unavailable LAKSHMIPATHY ., NARENDSOSA Admitting Anupama vailable BIARRA ., DR RICKY [employer] Unavailable IBARRA [...] 01-01-2022 Episodic Other aftercare (1 source) Other snf (current) drug therapy; Translations: [OTH CARE HOME CURRENT DRUG THERAPY] Onset: 05-13-2022 Episodic Other [...] BATSHEVA ALVARADO Date: 2022-07-15 12:10 Normal [facility] Office Visit (Cardiology)on 07-14-2022 Follow-up visit Diagnoses/Problems [...] we can help. You may also call [phone] for free resources and assistance.; Status:Complete - [...] ischemic evaluation. He underwent cardiac catheterization in [place] which showed no significant obstructive disease 3. [...] BY MOUTH FOUR TIMES A DAY NEEDED Rgdffg4h at bedtime Singulair 10 MG Oral TabletTAKE [...] negative for complaint. Vitals Vital Signs Recorded: [id number] 10:57AM Heart Rate34, L Radial Nztsycjb444, LUE, Sitting Yeisneyjx00, LUE, Sitting Height5 ft 4 in Urzpcg662 lb BMI Hcjgbjmakd28.96 kg/m2 BSA Calculated1.92 Tobacco Usea) Yes Patient encouraged to st (more content not included)... Normal [facility] Tobacco Screening.on 023 Adult depression screening assessment No [facility] Adisn DO Work Phone: Fall risk assessment a) No falls within the last year [facility] [employer] 600 DO Work Phone: Tobacco use status CPHS a) Yes [facility] [employer] 600 DO Work Phone: Tobacco Screening. Yes [facility] Adisn DO Work Phone: CT ABD/PELV W CONon [...] FLEX JACOBS Date: 2022-06-11 10:06 Normal [facility] CBC AUTO DIFFon 05-07-2022 BASO # 0.1 103/ul Normal 0.0-0.1 [facility] Comment on above: Performed By: #### C BC #### [facility] Laboratory [address] [address] [address] Britt Mendoza Basophils/100 WBC (Bld) 1.6 % Normal 0.2-2.0 [facility] Comment on above: Performed By: #### C BC #### [facility] Laboratory [address] [address] [address] Britt Mendoza EO # 0.2 103/ul Normal 0.0-0.7 [facility] Comment on above: Performed By: #### C BC #### [facility] Laboratory [address] [address] [address] Britt Mendoza Eosinophils/100 WBC (Bld) 3.0 % Normal 0.9-7.0 [facility] Comment on above: Performed By: #### C BC #### [facility] Laboratory [address] [address] [address] Britt Mendoza Erythrocyte distribution width (RBC) [Ratio] 12.4 % Normal 11.0-15.0 [facility] Comment on above: Performed By: #### C BC #### [facility] Laboratory [address] [address] [address] Britt Mendoza Hematocrit (Bld) [Volume fraction] 43.2 % Normal 42.0-54.0 [facility] Comment on above: Performed By: #### C BC #### [facility] Laboratory [address] [address] [address] Britt Mendoza Hemoglobin (Bld) [Mass/Vol] 14.7 g/dL Normal 14.0-18.0 [facility] Comment on above: Performed By: #### C BC #### [facility] Laboratory [address] [address] [address] Britt Mendoza IG # 0.11 10e3/ul Critically high 0.00-0.03 [facility] Comment on above: Performed By: #### C BC #### [facility] Laboratory [address] [address] [address] Britt Mendoza IG % 1.4 % Critically high 0.0-0.5 [facility] Comment on above: Performed By: #### C BC #### [facility] Laboratory [address] [place] [address] Dr. Britt Mendoza LYMPH # 1.7 103/ul Normal 1.2-3.8 [facility] Comment on above: Performed By: #### C BC #### [facility] Laboratory [address] [place] [address] Dr. Britt Mendoza Lymphocytes/100 WBC (Bld) 21.6 % Normal 20.5-60.0 [facility] Comment on above: Performed By: #### C BC #### [facility] Laboratory [address] [place] [address] Dr. Britt Mendoza MANUAL DIFF REQ NO Normal [facility] Comment on above: Performed By: #### C BC #### [facility] Laboratory [address] [place] [address] Dr. Britt Mendoza MCH (RBC) [Entitic mass] 31.2 pg Normal 25.9-34.0 [facility] Comment on above: Performed By: #### C BC #### [facility] Laboratory [address] [place] [address] Dr. Britt Mendoza MCHC (RBC) [Mass/Vol] 34.0 g/dL Normal 29.9-35.2 [facility] Comment on above: Performed By: #### C BC #### [facility] Laboratory [address] [place] [address] Dr. Britt Mendoza MCV (RBC) [Entitic vol] 91.7 fL Normal 80.0-94.0 [facility] Comment on above: Performed By: #### C BC #### [facility] Laboratory [address] [address] [address] Britt Mendoza MONO # 0.5 103/ul Normal 0.3-0.8 [facility] Comment on above: Performed By: #### C BC #### [facility] Laboratory [address] [address] [address] Britt Mendoza Monocytes/100 WBC (Bld) 6.8 % Normal 1.7-12.0 [facility] Comment on above: Performed By: #### C BC #### [facility] Laboratory [address] [place] [address] Dr. Britt Mendoza NEUT # 5.0 103/ul Normal 1.4-6.5 [facility] Comment on above: Performed By: #### C BC #### [facility] Laboratory [address] [place] [address] Dr. Britt Mendoza Neutrophils/100 WBC (Bld) 65.6 % Normal 43.0-75.0 [facility] Comment on above: Performed By: #### C BC #### [facility] Laboratory [address] [place] [address] Dr. Britt Mendoza Platelet mean volume (Bld) [Entitic vol] 9.7 fL Normal 9.5-13.5 [facility] Comment on above: Performed By: #### C BC #### [facility] Laboratory [address] [place] [address] Dr. Britt Mendoza PLT 244 103/ul Normal 150-450 [facility] Comment on above: Performed By: #### C BC #### [facility] Laboratory [address] [place] [address] Dr. Britt Mendoza RBC 4.71 106/ul Normal 4.70-6.10 [facility] Comment on above: Performed By: #### C BC #### [facility] Laboratory [address] [place] [address] Dr. Britt Mendoza WBC 7.6 103/ul Normal 4.0-11.0 [facility] Comment on above: Performed By: #### C BC #### [facility] Laboratory [address] [place], [place] [address] Dr. Britt Mendoza GLYCOHEMOGLOBIN A1Con 2021 ADA RECOMMENDATION SEE BELOW Normal The [facility] Comment on above: Result Comment: ADA RECOMMENDED LIMIT 4.0 - 6.0 ADA THERAPEUTIC TARGET < 7.0 ACTION SUGGESTED > 7.0 Performed By: #### A 1C ####[facility] [address] [id number]. Britt Mendoza Glucose [Mass/Vol] 117 mg/dL Normal [facility] Comment on above: Performed By: #### A 1C ####[facility] [address] [id number] Mendoza HbA1c (Bld) [Mass fraction] 5.7 % Normal 4.5-6.2 [facility] Comment on above: Performed By: #### A 1C ####[facility] [address] [address]DrAtiya Mendoza LIPID PROFILEon 05-07-2022 CHOL-HDL RATIO NORM SEE BELOW Normal [facility] Comment on above: Result Comment: 3.3 - 4.4 LOW RISK 4.4 - 7.1 AVERAGE RISK 7.1 - 11.0 MODERATE RISK >11.0 HIGH RISK Performed By: #### B MP, LIVER, LIPID, TSH ####[facility] [address] [id number]. Britt Mendoza Cholesterol [Mass/Vol] 235 mg/dL Critically high <=200 [facility] Comment on above: Performed By: #### B MP, LIVER, LIPID, TSH ####[facility] [address] [id number]. Britt Mendoza Cholesterol in HDL [Mass/Vol] 40 mg/dL Normal 40-60 [facility] Comment on above: Performed By: #### B MP, LIVER, LIPID, TSH ####[facility] [address] [id number]. Britt Mendoza Cholesterol in LDL [Mass/Vol] 156.8 mg/dL Normal [facility] Comment on above: Performed By: #### B MP, LIVER, LIPID, TSH ####[facility] [address] [id number]. Britt Mendoza Cholesterol.total/C holesterol in HDL [Mass ratio] 5.9 {ratio} Normal [facility] Comment on above: Performed By: #### B MP, LIVER, LIPID, TSH ####[facility] [address] [id number]. Britt Mendoza HDL NORMAL > or = 60 mg/dl - LO W CARDIOVASCULAR RISK <40 mg/dl - HIGH CARDIOVASCULAR RISK Normal [facility] Comment on above: Performed By: #### B MP, LIVER, LIPID, TSH ####[facility] [address] [address]Dr. Britt Mendoza LDL CALC NORMAL SEE BELOW Normal [facility] Comment on above: Result Comment: <100 mg/dl OPTIMAL 100 - 129 mg/dl NEAR OR ABOVE OPTIMAL 130 - 159 mg/dl BORDERLINE HIGH 160 - 189 mg/dl HIGH >190 mg/dl VERY HIGH Performed By: #### B MP, LIVER, LIPID, TSH ####[facility] [address] [address]Dr. Britt Mendoza Triglyceride [Mass/Vol] 191 mg/dL Critically high <=150 [facility] Comment on above: Performed By: #### B MP, LIVER, LIPID, TSH ####[facility] [address] [id number]. Britt Mendoza VLDL CALC 38.2 mg/dL Normal [facility] Comment on above: Performed By: #### B MP, LIVER, LIPID, TSH ####[facility] [address] [id number]. Britt Mendoza LIVER PROFILEon 05-07-2022 Albumin [Mass/Vol] 3.6 g/dL Normal 3.4-5.0 [facility] Comment on above: Performed By: #### B MP, LIVER, LIPID, TSH ####[facility] [address] [address]Dr. Britt Mendoza Albumin/Globulin [Mass ratio] 1.1 {ratio} Normal [facility] Comment on above: Performed By: #### B MP, LIVER, LIPID, TSH ####[facility] [address] [address]Dr. Britt Mendoza ALP [Catalytic activity/Vol] 84 U/L Normal 46-116 [facility] Comment on above: Performed By: #### B MP, LIVER, LIPID, TSH ####[facility] [address] [address]Dr. Britt Mendoza ALT [Catalytic activity/Vol] 34 U/L Normal 16-63 [facility] Comment on above: Performed By: #### B MP, LIVER, LIPID, TSH ####[facility] [address] [address]Dr. Britt Mendoza AST [Catalytic activity/Vol] 21 U/L Normal 15-37 [facility] Comment on above: Performed By: #### B MP, LIVER, LIPID, TSH ####[facility] [address] [address]Dr. Britt Mendoza BILI, CONJUGATED 0.1 mg/dL Normal 0.0-0.2 [facility] Comment on above: Performed By: #### B MP, LIVER, LIPID, TSH ####[facility] [address] [place], [place] [address]Dr. Britt Mendoza Bilirubin [Mass/Vol] 0.4 mg/dL Normal 0.2-1.0 [facility] Comment on above: Performed By: #### B MP, LIVER, LIPID, TSH ####[facility] [address] [place], [place] [address]Dr. Britt Mendoza Globulin (S) [Mass/Vol] 3.4 g/dL Normal [facility] Comment on above: Performed By: #### B MP, LIVER, LIPID, TSH ####[facility] [address] [address]Dr. Britt Mendoza Protein [Mass/Vol] 7.0 g/dL Normal 6.4-8.2 [facility] Comment on above: Performed By: #### B MP, LIVER, LIPID, TSH ####[facility] [address] [place], [place] [address]Dr. Britt Mendoza PROF CHEM 8 (BAS METB)on Anion gap [Moles/Vol] 13.8 mmol/L Normal [facility] Comment on above: Result Comment: Prev iously reported as: -2.3 On 05/07/2022 13:50 By DM9 Performed By: #### B MP, LIVER, LIPID, TSH #### [facility] Laboratory [address] [address] [address] Britt Mendoza Calcium [Mass/Vol] 9.2 mg/dL Normal 8.5-10.1 [facility] Comment on above: Performed By: #### B MP, LIVER, LIPID, TSH #### [facility] Laboratory [address] [place] [address] Dr. Britt Mendoza Chloride [Moles/Vol] 99 mmol/L Normal 98-107 [facility] Comment on above: Result Comment: Prev iously reported as: 106 On 05/07/2022 13:50 By DM9 Performed By: #### B MP, LIVER, LIPID, TSH #### [facility] Laboratory [address] [place] [address] Dr. Britt Mendoza CO2 [Moles/Vol] 27.3 mmol/L Normal 21.0-32.0 [facility] Comment on above: Result Comment: Prev iously reported as: 29.2 On 05/07/2022 13:50 By DM9 Performed By: #### B MP, LIVER, LIPID, TSH #### [facility] Laboratory [address] [place] [address] Dr. Britt Mendoza Creatinine [Mass/Vol] 1.12 mg/dL Normal 0.70-1.30 [facility] Comment on above: Performed By: #### B MP, LIVER, LIPID, TSH #### [facility] Laboratory [address] [place] [address] Dr. Britt Mendoza EGFR-AF SENEGALESE >60 Normal >=60 [facility] Comment on above: Performed By: #### B MP, LIVER, LIPID, TSH #### [facility] Laboratory [address] [place] [address] Dr. Britt Mendoza EGFR-NON AF SENEGALESE >60 Normal >=60 [facility] Comment on above: Performed By: #### B MP, LIVER, LIPID, TSH #### [facility] Laboratory [address] [address] [address] Britt Mendoza Glucose [Mass/Vol] 108 mg/dL Critically high 74-106 T [facility] Comment on above: Performed By: #### B MP, LIVER, LIPID, TSH #### [facility] Laboratory [address] [place] [address] Dr. Britt Mendoza Potassium [Moles/Vol] 4.1 mmol/L Normal 3.5-5.1 [facility] Comment on above: Result Comment: Prev iously reported as: 3.9 On 05/07/2022 13:50 By DM9 Performed By: #### B MP, LIVER, LIPID, TSH #### [facility] Laboratory [address] [place] [address] Dr. Britt Mendoza Sodium [Moles/Vol] 136 mmol/L Normal 136-145 [facility] Comment on above: Result Comment: Prev iously reported as: 129 On 05/07/2022 13:50 By DM9 Performed By: #### B MP, LIVER, LIPID, TSH #### [facility] Laboratory [address] [place] [address] Dr. Britt Mendoza Urea nitrogen [Mass/Vol] 26.0 mg/dL Critically high 7.0-18.0 [facility] Comment on above: Performed By: #### B MP, LIVER, LIPID, TSH #### [facility] Laboratory [address] [place] [address] Dr. Britt Mendoza Urea nitrogen/Creatinine [Mass ratio] 23.2 mg/mg Normal [facility] Comment on above: Performed By: #### B MP, LIVER, LIPID, TSH #### [facility] Laboratory [address] [place] [address] Dr. Britt Mendoza TSHon 05-07-2022 TSH 0.828 uIU/mL Normal 0.358-3.740 [facility] Comment on above: Performed By: #### B MP, LIVER, LIPID, TSH ####[facility] [address] [place], [place] [address]ItDr. Britt Mendoza VITAMIN D 25 OHon 05-07-2022 VIT D 25-OH 45.6 ng/mL Normal [facility] Comment on above: Performed By: #### V BRENDAN, PSASC #### [facility] Laboratory [address] [place], [place] [address] Dr. Britt Mendoza VIT D RANGES SEE BELOW Normal [facility] Comment on above: Result Comment: <20 ng/mL Vit D deficient 20 - <30 ng/mL Vit D insufficient 30 - 100 ng/mL Vit D sufficient >100 ng/mL Potential Toxicity Performed By: #### V BRENDAN, PSASC #### [facility] Laboratory [address] [place], [place] [address] Dr. Britt Mendoza Covid-19 PCR (CVDTB)on SARS-CoV-2 (COVID-19) RNA KATT+probe Ql (Unsp spec) Detected Critically abnormal NOT DETECTED The [facility] Comment on above: Result Comment: This test is not yet approved or cleared by the [place] FDA. When there are no FDA-approved or cleared tests available, and other criteria are met, FDA can make tests available under an emergency access mechanism called an Emergency Use Authorization (EUA). The EUA for this test is supported by the Planning Analyst of Health and Human Service's declaration that [...] be used). Performed By: #### C VDTBH ####[facility] [address] [place], [place] [address]XpDr. Britt Mendoza Cardiac Stress Teston 2021 Cardiac Stress Test [address], [address], [place] [address] Exercise Stress Test Patient Name: LILIANA MICHAELS JR. Ordering Physician: [id number] Valentino Ferrer MD Study Date: 02/15/2022 Reading Physician: [id number] Valentino Ferrer MD MRN/PID: [id number] Supervising Physician: [id number] Rivera MD Accession/Order#: [id number] Referring Physician: VALENTINO FERRER Date of : 1965 PCP: Ishmael Simon Gender: M Fellow: Height: 162.56 cm Nurse: Yunior Bhatti RN Weight: 81.65 kg Sand Worker: SAEID BSA: 1.87 m2 Technologist: BMI: 30.90 kg/m2 Additional Staff: Age: 56 years cc report to: Patient Location: cc report to: [id number] Valentino Ferrer MD Study Type: Cardiac Stress Test Diagnosis/ICD: R94.31-Abnormal electrocardiogram [ECG] [EKG]; R00.1-Bradycardia, unspecified; R06.00-Dyspnea, unspecified Indication: Dyspnea Procedure/CPT: Stress Test Interpretation-[id number]; Stress Test Supervision-[id number] Falls Risk: Low: Patient has low risk [...] 7. An element of chronotropic incompetency noted. [id number] Valentino Ferrer MD Electronically signed on 02/16/2022 at 2:52:20 PM Final Normal [facility] Cardiac Stress Test Please click on the link to view the study images [facility] Work Phone: Cardiac Stress Test MP-No rth [facility] 250 DO Work Phone: Office Visit (Cardiology)on [...] we can help. You may also call [phone] for free resources and assistance.; Status:Complete - Retrospective Authorization; Done: [id number] SocHx: Current smoker Continue with our present treatment plan.; Status:Complete - Retrospective Authorization; Done: [id number] Tobacco Use Screening; Status:Complete; Done: [id number] Patient Instructions Please bring all medicines, vitamins, [...] This led to a cardiac evaluation in [place] and its not clear to me whether [...] Oral Capsule Delayed ReleaseTAKE 1 CAPSULE Daily Fmzbjy3q at bedtime Sin (more content not included)... Normal [facility] Tobacco Screening.on Adult depression screening assessment No -[facility] [employer] 600 DO Work Phone: Fall risk assessment a) No falls within the last year [facility] [employer] 600 DO Work Phone: Tobacco use status CPHS a) Yes [facility] [employer] 600 DO Work Phone: Tobacco Screening. Yes [facility] [employer] 600 DO Work Phone: [facility]on SARS-CoV-2 (COVID-19) RNA KATT+probe Ql (Unsp spec) Not detected Normal NOT DETECTED The [facility] Comment on above: Result Comment: This test is not yet approved or cleared by the [place] FDA. When there are no FDA-approved or cleared tests available, and other criteria are met, FDA can make tests available under an emergency access mechanism called an Emergency Use Authorization (EUA). The EUA for this test is supported by the Planning Analyst of Health and Human Service's (HHS's) declaration [...] consistent with SARS-CoV-2. Performed By: #### C [facility] #### [facility] Laboratory [address] [place], [place] [address] Dr. Britt Mendoza Covid-19 PCR ([facility])on 11-07 SARS-CoV-2 (COVID-19) RNA KATT+probe Ql (Unsp spec) Not detected Normal NOT DETECTED The [facility] Comment on above: Result Comment: This test is not yet approved or cleared by the [place] FDA. When there are no FDA-approved or cleared tests available, and other criteria are met, FDA can make tests available under an emergency access mechanism called an Emergency Use Authorization (EUA). The EUA for this test is supported by the [place] of Health and Human Service's (HHS's) declaration [...] consistent with SARS-CoV-2. Performed By: #### C [facility] ####[facility] [address] [place], [place] [address]AfDr. Britt Mendoza XR CHEST 2 Von 10-01-2021 [...] by: FLEX JACOBS Date: 2021-10-01 09:30 Normal [facility] Ambulatory Clinical Summaryo n 03-05-2021 Ambulatory Clinical Summary {[id number]}CD:[id number] Normal [facility] Historical Records Officeon 03-05-2021 Historical Records Office [id number] .00CD:127 Normal [facility] Patient Educationon 03-05-20 21 Patient Education Urology [...] these instructions at home: Medicines ? Take uzhq-omw-ruyiowp and prescription medicines only as told by [...] of your (more content not included)... Normal [facility] Urology Office/Clinic Noteon 03-05-2021 Urology Office/Clinic Note [...] order. Ordered: Office Visit Level 4 Est 31259 2. Hypogonadism male (E29.1: Testicular hypofunction) noted [...] time. Ordered: Office Visit Level 4 Est 50402 3. BPH with urinary obstruction (N40.1: Benign prostatic hyperplasia with lower urinary tract symptoms) s/p Urolift September 2018. Pt is currently taking no bladder/prostate medication and is mostly satisfied with overall symptom control. has nocturia but attributes this to diuretics. Pt prefers to continue with no changes at this time. PCP checking PSAs per pt. Ordered: Office Visit Level 4 Est 25380 Orders: Urnls Dip Stick Auto w/o Microscopy POC 42350 offered f/u 1 yr but pt prefers PRN. Total time spent reviewing previous notes/results/externa l documents, preparing the chart, conducting the encounter with the patient and family, ordering tests/medications, and documenting the encounter was 30 minutes. Follow-up With When Contact Information ITA SLOAN, SIMONE Priest [address] [place] [address]- Additional Instructions: Patient Education Erectile [...] inhalation powde (more content not included)... Normal [facility] Comment on above: Result Comment: Elec tronically Signed By: DANIEL MARTINEZ, TOMEKA Priest\.br\Date and Time Signed: 03/05/21 12:24 EDT MRI PELVIS WO CONTRASTon MRI PELVIS WO CONTRAST [facility] Department of Radiology [address] [place] [address] Patient Name: LILIANA MICHAELS : 1965 Sex: M Age: Race: White Pt. Location: 18 Patient Status: Ordered Date: 09/10/2020 3:35:00 PM Completed Date: 10/03/2020 08:34 AM Requesting Provider: SIMONE RUIZ Attending Provider: Report Copy To: Signs & Symptoms: R10.2 Pelvic and perineal pain I10 History: [place], Right FOREIGN per clinic will fax [facility] auth# [id number] 09/16/20-10/17/20 cpt code 26118 *mla Comments: Right groin to r/o an [...] spine. Electronically signed: Dinh Haskins. Transcribed by: [email or web address], User Resident: Electronically Signed by: DINH HASKINS @ 10/03/2020 09:57 AM Normal [facility] Comment on above: Order Comment: Right groin to r/o an adductor tear; iliopsoas bursitis or injury Operative Reporton Operative Report MR#: [id number] [facility] Pt. Name: Liliana Michaels Room #: PMC [...] Ruiz MD Date Trans: 09/10/2020 11:40 P/mmo DN_[id number] cc: Ishmael Simon M.D. [address] [place] [address] [place] [facility] Coding Summary.on 09-01-2020 Coding Summary. CD:[id number] G h0bWw+PGhlYWQ+DZ2IWXO vD51gqNMjnO8DN6kNYZ1N MXCAJAAFOH0GUA1fkSV7G FvzS5FdjdLt NfzetJBbXT44IDp8FIG0x SbhLVqusR2ljLBaG5i0Wm RsKD29sJ52PRnbHJNgEgV 3LjZpbjsgbWFy K9vkJlExkEQuKxa+PHRhY mxlIHdpZHRoPScxMDAlJy EigSrvEO2gOq0yQEOeFPU vbGxhcHNlOiBj v7rgHEOlEMcfWY2fcLauH 5TptDN3PEPhn7v9Md01cZ I+WODzYBJ9vFwgKNumj30 3IgRnc4jiKWW2 rEVoNIyiYUJ4A25ov3K4T PFkDIUzQEN3gSQ8zD8acT moiqolZ2KdkZGhHcJ8UPD 7oAFwgI9dzSdt ihyeaY4bVrd+A48MZF9HA JEJWL5GVxw4F2GkBppgzX I+BJ27TPZuXL71fQLntCD mk3nzyPw9LiQp YSLlGXQ0yWrqTVivu0JiO QJvJ20bdPDpa3P5XNCvkB pacPLaTdLfpUP5zN3eSUu ayvwdj8vggkdf Igezg2qkiw80pU71H01zV FanVGPvYYA2SBNdCKRwaQ gbrz3ryS7jZi8+JYupa5s yn3qdkHx8WbNv JNKlvvAlvFzwGSU3w3PrH o58R8TtnNaci5OtUxz6by 95bFBqt8X6kJY3KOfwEAH umX6eOTjtJuW0 FIZqLnCymL64cTFfDEmhO a0lzHtuxNfcHM4eRFMcbv zyQDLqrU6aYRJjcXXgwFu rEF0nIPDebaam a187QtSlSGR8WYXvnGDiW 8QfxX6mUdVjDXGeHSMeF4 LxzKAdWAqwS938WNpkKmP 1CBVvufWvW0Vt DKKbvTpnZxU6s1G7Rh6Ea 6BqdchePAG5EQxdCCW1Eq I4KhQbQkS9W6EiYtq3EQA wsDtsWX5qZ4Nr EUImkxtksomnaLN9DEMiJ VTtgV19lCQnIHybXa2mm7 M8t676QCAjRQIljF86Et9 udDogMTBwdCBU kB2bfrzxg2wigovaAfLgB ZVsJZq2AXk0OWMjvUzaPs IiOIT3WtB5FZT9rVYceM6 wkHbhqtvbiM8t Oyc+R22dqK3bTXV6ZTC5i hzwPAQbtzIrOG55NG72P6 RyPjwvdGFibGU+PGRpdiB wwAfrEN8iPcGp p3bnd6OmXUanS0FwEFHhE GviScb6XXGkDTR7vQH0jT 5fGPUzXYwmi6D1eDY2C7N sojFiqm9jg8ra VEDjBHelX65afXFhr2A1O FGiaIN5TSTymKbvZsUmpI 93Oyc+ZCMhwYwdn3ZmAwd be3nvj9tzpIt9 MzEpGIKstcMncUjaZZO5g 4NaVl96A20zQMauSDSvLB CuOIIiRHDrlWkkec6pzS1 wIi8+PGNvbCB3 qCF0uB4hLLKaBpI8DBoyM 516GiTfaRNwHcmzt7npo5 eukCn5ZpJrOOMlakGlyCb aJDW9d3WtYq48 C07tQBlkAXZgVWKrSZVrY QVjyPneyu0biC0oWm9+PC 6lt6tuhf24eX71eWD+PHR kEEB4pNelZWnk MIRelR5nRPpfQcZ0DUFqV fJhpP70wTThLIowHy9dtV ygrOpbDN0hPUWvgorlp00 2VeLih0ukQRCt kVMfBSzeJYV7C75ji6Q4X LGwJFVqGSK4cTM0rC9feL lnbjogbGVmdDsgdmVydGl gVQvpFXqtV090 IHRvcDsnPlBhdGllbnQgT eDqRMq4M2CqLol7JFQwfJ nfEA7yhIVfSNzpJj3etZq arBfmLK8iYOSs agvbr591SxFvr3gpLRSsb YKxKJkhJHX7G00gw9W1AP FmSMRdLSG3tRX9vJ9xqTj nbjogbGVmdDsg fiRazTpkGNhmFRpiF225Y HRvcDsnPkJpcnRoIERhdG W3BC76LL09pNPfh9A6cAB 4Q5DaABLkboow sayeoHE1EJGsXZBwaJ03Q e6yoNabOv3aRTNzYDQ1ON FjzFGpD9JriI1kGvQrPKU kTABbO4BxaSZr HNdcN827AAkxTaY1IWTzf iShU3QwFNCqmLlzVyA0v3 B3Ss2NT6K8UR11GG80cUN zh1P1cNP0C7Ll KAWldasflmpnkWC2HMWcN KJzzP31Fp5omQodJy7wFY EiMGM3HJSucDXrQ2PczY9 yOiAjMDAwMDAw M0JbtCLeWRpsL374LWpcX qJ5DPJdknSyZ4ToZLGjxM vmPdZ7o4X5Lg0EQUl8JS4 0BR15nABaw1C9 bLT7B3JcYVWhouqgffqmo LE7CEZeIHPuhB27Zk1wnU biNg8wVMPvAFH6HHKsmWW yB9QxaN3mAhTb CSCwJFXwM3EbsEGoHQyuH 303RBwlDqO4FJFjaqPtS0 IyQXTfzVkdIiT0n8N8Pt7 OGFMjXQ05LJU2 wPB6BJ86ZK21T2FhQwygi GFibGU+PHRhYmxlIHdpZH RoPScxMDAlJyBzdHlsZT0 sZp4pTBQpYPJm hOsijBYjWiCko6fuNCUnE KwfKP4vrFgkG2VzjQT9PQ Hkc2z2Jm22F37vD0IcoSJ +LFPocDE3wWC5 bB8pQjKgBzA1RUjeD572M dYmfHOyZujpo9uga3farD r1XgY0CYHomlSnkGauYDZ 2y4VsHu82N89q IHdpZHRoPSIxNSUiIHZhb Vramo4giW0oNd3+PGNvbC H3wDF0bN7aJhVpStH7NQz bH167MrMusSKz Iaeht0bva7equUx3TgUyD TDjxxSumOymJCU7c0UiNf 50X4TfvDonq7QuStb5eu3 2qMSdq5M2bGA9 E5LzUJMearebnHLywUvkC B3yFAXhlvirHZQbnA3tUN ArN1e3JqUjJjZ1EIxxP9B codE7HHUvdUMz BWirCVM8V88yj3D7VDNyU KYeRVR5gWK4xI5zkNjqhn ogbGVmdDsgdmVydGljYWw nFWwaI128RFEs pMzaUXVdsH6mETMnkXKrw FrzYF7zDDKdgfcwNhlDMX 5FUiwgUkFMUEggRTwvdGQ +EPXuBOD6tQmx RBxyAGHxpU8eGCWaP1w6X iDdVmA9UOczF8DsCCOuov dnDf06wC1oHxWjLeX4PCo xG2GrniO9BLOx rJBaZEfcOQB1I10wp3R8D YOmSPVrMGA2fMQ0lF0veR lnbjogbGVmdDsgdmVydGl tGKnmUVteP695 OCWclRxcBnNvZhS3ZrN4N qS6J3WbRnk3DXQrhGmfRI 4uxFNaLTwaAn7caXkopHo bLX9aHTMjwdci QGHepB4dGBYfqCZpcDlrF Q8uYDFpncayc802TpBxZA Z7YUSgsEPkA8ZenZ5tTzA uBXCoXXSfF3Nh tMEdVIrmT736NFfcKaF6Z ABjuhKmT3KfYFMqqGqbNt O7l7S8Et54FmYNEUMchkd vdGQ+PHRkIHN0 vZooGDtyFNVxkS6oAFAhW 9z1SzWkSbT2UPnqW8PeGO KidomuWu37bN5eAjSdXmN 5NYyyJ1NiufV4 THZxhUXoRHbcQQM8L76wo 2Z3IOAtRFHgKEX9vNI4eD 1hbGlnbjogbGVmdDsgdmV ydGljYWwtYWxp B253HCDetXhxXe1yyZU9P 6RoKww8NRPuyZuzFW8skJ CmBHsbNw4jeRfbbAkyOZ4 wNTBpbjtwYWRk xS8dCRXutPQhqEncAP3fJ IMelyqbo376GgEnHTZ0CP ZhwHHpG2CkmJ7fQnNhTQW vGMJwX6ZhiGJp DKrvU567MJefCeM2EUJdr wRpV4HwTQGroTdoMxV1l2 F2Tz5UhJYhS1BoX7n6M2I kPjwvdHI+PC90 WMCgZZ30uVQceAMnh5qlm Uu1WaXpRSTyVVK5tZjeDT jov7GzAOYlE82atYZqt2G 6IGNvbGxhcHNl CfGlcUO1gR1tYNyoscgkv 1putpjfAhdrb7lmyq94dN 73O13iQQwcSBDpPEFrDWL rHYTmcOdqbf6w rK2oMs7+MSOmoKR9zBH3y Q6tRnSsQnH5ZCijO261He JzjOUjWyloe8zpo3efaDb 9IjIwJSIgdmFs yRsbKCA6f6MfXh80X61zB HdpZHRoPSIyMCUiIHZhbG wdtk2okH5lIe8+EG2rx0d rbb66lT84mQN+ LSGwAHL4mFbkKWasFSScd J7xCEalCcU7OZOrQzDwhI 12xXRtASndPg2swUrqcBs rHM3wQDVuczfa q370LdDnw2ceRWLfyOHjT EeeJUY5U49qy8Q8FBFrJW ZdNFB1eQZ9zO2avUnmmjo gbGVmdDsgdmVy pYjaNQdaBBufU207YTDvm IokVgBhsTDdR5kxukDRYN 1lOjwvdGQ+NGDqQRM8uHk nUWdvPKOvzG7k WDKiP9m6ByVuAzI4DZqjT 8BxsiG3TZNtmMSaLLQiiM MMlP7ezobuj5whddhmUbI vERTzMDp2VAm7 TCVytGagOpFkZBI0VdV7L OF9vXTphB2vpGzhiupxbC 9wOyc+RklOOjwvdGQ+PHR lPUZ6vMbzNPif OGNgpI7kTLEaP3c8VkRcP vR9LWzwX6KncjQ8QEChyQ ByADBwgPPIdT2yyjjbh7m vcjogIzAwMDAw WRv9OJj0ANIkdYnwRuPtY UR6NpA2AMZ6gZRcxQ6caX syldczlL8vAuw+TVJOOjw vdGQ+PHRkIHN0 sVbiYScoRYVijL4fCRTfM 5z5MxRcIrR0MTtzX8Yjyq I5MSJzhGUpAUIyxBETaL9 qnxyky6gmgbrj RoPvTXYrYGm3GFz6JYHyx TjjCzJcHLZ2UkR7GJD2aW NvpG9oiZgptfugtL6yIrg +SIR8SAW0VL19 KI83J0NdRhuntDFwyIY+P HRhYmxlIHdpZHRoPScxMD QtYdOsjQjlEV8uHr3lZAN yLWNvbGxhcHNl Oi (more content not included)... Normal [facility] Auto Diffon 08-24-2020 Basophils/100 WBC (Bld) 1.0 % Normal 0.0-2.0 [facility] Comment on above: Order Comment: Order Added by Discern Expert. Performed By: #### 1 [id number], 9558470, 7649232, 50368186, 4325741, 6959442, 36950184, 32389632 ####[address] [place] [address] Basophils/Leukocyte s Auto (Bld) [Pure # fraction] 0.1 E9/L Normal 0.0-0.2 [facility] Comment on above: Order Comment: Order Added by Discern Expert. Performed By: #### 1 7271212, 6505508, 0637355, 03858135, 5800287, 6459871, 49136409, 50456270 ####[address] [place] [address] Eosinophils/100 WBC (Bld) 2.5 % Normal 0.0-8.0 [facility] Comment on above: Order Comment: Order Added by Discern Expert. Performed By: #### 1 7403429, 1831364, 7649938, 03717920, 4770064, 9970680, 87520847, 11077791 ####[address] [address] Eosinophils/Leukocy tobi Auto (Bld) [Pure # fraction] 0.3 E9/L Normal 0.0-0.5 [facility] Comment on above: Order Comment: Order Added by Discern Expert. Performed By: #### 1 0486565, 1284648, 3766770, 23448049, 9531904, 3383070, 97071571, 75454739 ####[address] [place] [address] Lymphocytes/100 WBC (Bld) 21.0 % Normal 14.0-50.0 [facility] Comment on above: Order Comment: Order Added by Discern Expert. Performed By: #### 1 8580431, 0369056, 7293218, 49756211, 9673683, 9653439, 46696132, 24242681 ####[address] [place] [address] Lymphocytes/Leukocy tobi Auto (Bld) [Pure # fraction] 2.1 E9/L Normal 1.0-4.0 [facility] Comment on above: Order Comment: Order Added by Crystal Expert. Performed By: #### 1 5342029, 5094654, 2078895, 17229153, 0982976, 4568115, 97198937, 62834255 ####[address] [place] [address] Monocytes/100 WBC (Bld) 6.2 % Normal 4.0-14.0 [facility] Comment on above: Order Comment: Order Added by Discern Expert. Performed By: #### 1 0103789, 9803727, 4500837, 94990475, 1929789, 6854165, 37846396, 19485792 ####[address] [address] Monocytes/Leukocyte s Auto (Bld) [Pure # fraction] 0.6 E9/L Normal 0.2-1.0 [facility] Comment on above: Order Comment: Order Added by Crystal Expert. Performed By: #### 1 4797525, 5706116, 8601138, 22714633, 6121390, 9636340, 96967494, 30035436 ####[address] [address] Neutrophils/100 WBC (Bld) 69.3 % Normal 36.0-75.0 [facility] Comment on above: Order Comment: Order Added by Crystal Expert. Performed By: #### 1 4581477, 8203798, 3996431, 45597109, 9421216, 1762901, 67911660, 19198583 ####[address] [place] [address] Neutrophils/Leukocy tobi Auto (Bld) [Pure # fraction] 6.9 E9/L Normal 2.0-7.5 [facility] Comment on above: Order Comment: Order Added by Crystal Expert. Performed By: #### 1 9142095, 1667753, 0721777, 78082654, 1051507, 5507852, 68337780, 51994166 ####[address] [place] [address] BMPon 08-24-2020 Creatinine [Mass/Vol] 1.1 mg/dL Normal 0.5-1.3 [facility] Comment on above: Performed By: #### 1 8707173, 4230579, 1140644, 88040805, 9474514, 2924591, 80422802, 99578878 ####[facility] [address] [place] [address] Urea nitrogen [Mass/Vol] 19 mg/dL Normal 5-21 [facility] Comment on above: Performed By: #### 1 6361934, 6330601, 7522339, 00374124, 1892284, 0602168, 39204659, 31246616 ####[facility] [address] [place] [address] Urea nitrogen/Creatinine [Mass ratio] 17 No Units Normal 10-20 [facility] Comment on above: Performed By: #### 1 0860196, 1003188, 9436226, 27691354, 2486094, 0364822, 54186442, 32592642 ####[facility] [address] [place] [address] Anion gap [Moles/Vol] 14 mmol/L Normal 6-16 [facility] Comment on above: Performed By: #### 1 6013928, 5504842, 2341911, 53866399, 7294959, 6827762, 04880935, 38773439 ####[facility] [address] [place] [address] Calcium [Mass/Vol] 9.4 mg/dL Normal 8.9-11.1 [facility] Comment on above: Performed By: #### 1 2773480, 6999976, 7550586, 78852584, 7611932, 2211376, 64849948, 24599515 ####[facility] [address] [place] [address] Chloride [Moles/Vol] 94 mmol/L Low 101-111 [facility] Comment on above: Performed By: #### 1 6921932, 6789529, 1377397, 08030786, 2394780, 9009232, 82236648, 53362593 ####[facility] [address] [place] [address] CO2 [Moles/Vol] 29 mmol/L Normal 21-31 [facility] Comment on above: Performed By: #### 1 3848846, 6542416, 1215551, 72551667, 8194913, 1594391, 99924011, 68026894 ####[facility] [address] [place] [address] Glucose [Mass/Vol] 103 mg/dL Normal 55-199 [facility] Comment on above: Result Comment: If t his glucose result represents a fasting glucose, interpretation should refer to the following reference range: 55-99 mg/dL Performed By: #### 1 2923825, 9106958, 2115549, 19878738, 5370247, 2622980, 53208909, 99029463 ####[facility] [address] [place] [address] Potassium [Moles/Vol] 4.0 mmol/L Normal 3.5-5.3 [facility] Comment on above: Performed By: #### 1 7659418, 7559686, 6005055, 46236111, 8198639, 3988394, 60841770, 28152553 ####[facility] [address] [place] [address] Sodium [Moles/Vol] 133 mmol/L Low 135-145 [facility] Comment on above: Performed By: #### 1 1125963, 6075913, 1727224, 64982403, 2749898, 2112716, 02325814, 43446078 ####[facility] [address] [place] [address] BNPon 08-24-2020 Natriuretic peptide B (Bld) [Mass/Vol] 17 pg/mL Normal 5-80 [facility] Comment on above: Performed By: #### 1 3344197, 4337521, 4557259, 24952992, 4425072, 0897412, 55972223, 60271677 ####[address] [place] [address] CBC w/ Auto Diffon Erythrocyte distribution width (RBC) [Ratio] 12.9 % Normal 10.9-14.2 [facility] Comment on above: Performed By: #### 1 5833479, 9166530, 8656808, 94114043, 1904944, 9786682, 76984998, 77397880 ####[address] [place] [address] Hematocrit (Bld) [Volume fraction] 44.4 % Normal 37.7-49.0 [facility] Comment on above: Performed By: #### 1 6039167, 5559272, 0733430, 42128770, 2269926, 6268150, 38412143, 18935755 ####[address] [address] Hemoglobin (Bld) [Mass/Vol] 15.3 g/dL Normal 13.5-17.5 [facility] Comment on above: Performed By: #### 1 2848528, 3663067, 7838939, 96800189, 0251437, 4038805, 31383269, 35485242 ####[address] [place] [address] MCH (RBC) [Entitic mass] 31.5 pg Normal 27.0-34.0 [facility] Comment on above: Performed By: #### 1 3744071, 9004841, 5485574, 85761766, 7774645, 4148308, 40988756, 95983057 ####[address] [place] [address] MCHC (RBC) [Mass/Vol] 34.4 g/dL Normal 31.4-36.0 [facility] Comment on above: Performed By: #### 1 9368359, 5040843, 4086403, 24491764, 7558764, 1497105, 20354134, 89267537 ####[facility] [address] [place] [address] MCV (RBC) [Entitic vol] 91.6 fL Normal 80.0-100.0 [facility] Comment on above: Performed By: #### 1 0773540, 5435607, 8365552, 41885863, 1150386, 7083646, 21997427, 33895292 ####[address] [place] [address] Platelet mean volume (Bld) [Entitic vol] 8.4 fL Normal 6.4-10.8 [facility] Comment on above: Performed By: #### 1 3346378, 3813241, 4057427, 88868344, 1858964, 5563700, 94828172, 37792896 ####[address] [address] Platelets (Bld) [#/Vol] 289.0 E9/L Normal 150.0-500.0 [facility] Comment on above: Performed By: #### 1 4722585, 3626177, 3488541, 05357973, 3710651, 8449688, 68065122, 90677500 ####[address] [address] RBC (Bld) [#/Vol] 4.8 E12/L Normal 4.3-5.9 [facility] Comment on above: Performed By: #### 1 8515498, 7940282, 7045134, 78052223, 3831387, 5021156, 75381580, 86936922 ####[address] [place] [address] WBC corrected for nucl RBC Auto (Bld) [#/Vol] 9.9 E9/L Normal 4.0-11.0 [facility] Comment on above: Performed By: #### 1 5480579, 0360287, 4336010, 14759217, 1079201, 8950902, 95513091, 32913697 ####[facility] [place] [address] CTA Cheston 08-24-2020 CTA Chest Exam Date/Time: [...] 370 Contrast amount in ml's: 78 Normal [facility] Consent for Treatmenton 08-07 Consent for Treatment [id number] .00CD:127 Normal [facility] D-Dimeron 08-24-2020 Fibrin D-dimer FEU (PPP) [Mass/Vol] 845 ng/mL Abnormal 215-500 [facility] Comment on above: Result Comment: Resu lts [...] infections Liver cirrhosis Performed By: #### 1 0481150, 2562926, 7541727, 14069248, 6126081, 7179891, 55509696, 88363971 ####[address] [place] [address] Discharge Instructionson Discharge Instructions [id number] .00CD:127 Normal [facility] ED Clinical Summaryon 2020 ED Clinical Summary [id number] ED Clinical Summary Person Information Name: LILIANA MICHAELS Cem Kristine/[facility] Age: 55 Years : 1965 Sex: Male Language: Arabic PCP: SIMONE JEAN BAPTISTE DC Marital Status: Single Phone: [phone] Visit Id: Visit Reason: Rib/trunk pain-swelling; SIDE [...] 08/24/2020 03:27:58 08/24/2020 03:27:58 08/24/2020 03:27:58 ADDRESS: [address] [place] [phone] PHYS DOC NOTES: MEDICAL INFORMATION: Prescriptions Given: New Medications [id number], [address], [place] [phone], [phone] azithromycin (Zithromax TRI-AMIRA 500 mg oral tablet) [...] When: SIMONE JEAN BAPTISTE [address] [place] [address] Business (1) In 1 day 08/25/2020 Comments: Patient is advised to follow-up with his primary care physician in 1 to 2 days. He is also advised to come back to the emergency department if symptoms get worse. DIAGNOSIS: 1:Rib pain on left side Normal [facility] ED Note-Physicianon 08-25-19 ED Note-Physician Basic Information [...] date 08/24/20 2:30:00 EDT Rapid COVID Antigen ([facility] Orders: albuterol-ipratropium , 3 mL, Soln-Inh, Inhalation, Once, Stop date 08/24/20 0:16:00 EDT, STAT, Start date 08/24/20 0:16:00 EDT azithromycin, 500 mg = 1 tab(s), Oral, Daily, # 3 tab(s), Refills(s) 0, Pharmacy: [id number], 163, cm, 08/24/20 0:04:00 EDT, Height/Length Dosing, 101, kg, 08/24/20 0:04:00 EDT, Weight Dosing famotidine, 20 mg = 1 tab(s), Tab, Oral, Once, Stop date 08/24/20 0:17:00 EDT, STAT, Start date 08/24/20 0:17:00 EDT lidocaine topical, 1 patch(es), Topical, Daily, 7 patch(es), Refill(s) 0, apply 12 hours on and 12 hours off daily, [id number], 163, cm, 08/24/20 0:04:00 EDT, Height/Length Dosing, 101, kg, 08/24/20 0:04:00 EDT, Julian (more content not included)... Normal [facility] Comment on above: Result Comment: Elec tronically [...] Document Reviewed: 11/28/2008 ExitCare? Patient Information ?2015 [employer]. This information is not intended to replace advice given to you by your health care provider. Make sure you discuss any questions you have with your health care provider. Normal [facility] ED Patient Summaryon 021 ED Patient Summary [id number] Patient Discharge Instructions Person Information Name: LILIANA MICHAELS Age: 55 Years Arrival Date: 08/23/2020 23:48:11 Discharge Diagnosis: 1:Rib pain on left side Primary Care Physician: SIMONE JEAN BAPTISTE DC Provider Information Primary Provider: Pia LANE, David Advanced Filament Cutter:None The exam and treatment you received in the Emergency Department were for an urgent problem and are not intended as complete care. It is important that you follow up with a doctor, nurse practitioner, or physician?s early childhood teacher assistant for ongoing care. If your symptoms [...] Address: When: SIMONE JEAN BAPTISTE [address] [place] [address] Business (1) In 1 day 08/25/2020 Comments: [...] opioids can be used to help relieve qoufuwvb-xh-gsfozq pain and are often prescribed following a [...] be struggling (more content not included)... Normal [facility] PT & PTTon 08-24-2020 aPTT Coag (PPP) [Time] 30.2 second(s) Normal 25.1-36.5 [facility] Comment on above: Result Comment: Hepa rin therapeutic range (represented by Anti-Factor Xa activity of 0.2 - 0.4 U/mL) corresponds to PTT of 56.6 - 109.0 sec. Performed By: #### 1 [id number], [id number], 6437850, [id number], 5606470, 5005424, [id number], [id number] ####[facility] [address] [place] [address] INR Coag (PPP) [Relative time] 1.0 {INR} Invalid Interpretation Code [facility] Comment on above: Result Comment: INR results are specifically intended to assess patients stabilized on long-term Anticoagulation therapy suggested INR?s ?Less Intensive Anticoagulation? 2.0 ? 3.0 Conventional Range 3.0 ? 4.5 Performed By: #### 1 [id number], [id number], 9660427, 15557749, 6657488, 5178576, 72125123, [id number] ####[facility] [address] [place] [address] PT Coag (PPP) [Time] 11.6 second(s) Normal 10.2-12.9 [facility] Comment on above: Performed By: #### 1 [id number], 3735225, 1476526, 50177856, 6843308, 6640357, 56253563, 77601036 ####[facility] [address] [place] [address] RAD - Preliminary Cat Scan R eporton 08-24-2020 RAD - Preliminary Cat Scan Report [id number]:[id number] Normal [facility] Rapid COVID Antigen (MC)on 08-24-2020 Rapid COV Int NEG Ctl Pass Normal [facility] Comment on above: Performed By: #### 2 [id number] ####[facility] [address] [place] [address] Rapid COV Int POS Ctl Pass Normal [facility] Comment on above: Performed By: #### 2 [id number] ####[facility] [address] [place] [address] SARS-CoV-2 (COVID-19) RNA KATT+probe Ql (Unsp spec) Not detected Normal Not Detected [facility] Comment on above: Result Comment: The [employer]? System for Rapid Detection of SARS-CoV-2 is [...] or revoked sooner. Performed By: #### 2 [id number] ####[place] [place] [address] Employed in Healthcare NO Normal [facility] Comment on above: Performed By: #### 2 [id number] ####[address] [place] [address] First Test Unknown Normal [facility] Comment on above: Performed By: #### 2 [id number] ####[facility] [address] [facility] [place] [address] Hospitalized? NO Normal [facility] Comment on above: Performed By: #### 2 [id number] ####[address] [address] [place] [address] ICU NO Normal [facility] Comment on above: Performed By: #### 2 [id number] ####[facility] [address] [place] [address] ? NO Normal [facility] Comment on above: Performed By: #### 2 [id number] ####[facility] [address] [place] [address] Resides in a Congregate Care Setting NO Normal [facility] Comment on above: Performed By: #### 2 [id number] ####[facility] [address] [place] [address] Symptomatic as defined by [facility] YES Normal [facility] Comment on above: Performed By: #### 2 [id number] ####[address] [address] Troponin 0 Hr.on 08-24-2020 Troponin I.cardiac [Mass/Vol] 4.10 pg/mL Low 15.90-38.40 [facility] Comment on above: Result Comment: The 95% CI (Confidence Interval) PPV (Positive Predictive Value) for myocardial infarction in females is 38 pg/mL, in males 51 pg/mL. The results should be used in conjunction with clinical conditions of myocardial infarction. (Access High Sensitivity Troponin I Instructions For Use, [employer], December 2017) Performed By: #### 1 [id number], 3763369, 5655449, 74694323, 8270809, 1932141, 00536656, [id number] ####[facility] [address] [place] [address] Troponin 3 Hr.on 08-24-2020 Troponin I.cardiac [Mass/Vol] 4.40 pg/mL Low 15.90-38.40 [facility] Comment on above: Result Comment: The 95% CI (Confidence Interval) PPV (Positive Predictive Value) for myocardial infarction in females is 38 pg/mL, in males 51 pg/mL. The results should be used in conjunction with clinical conditions of myocardial infarction. (Access High Sensitivity Troponin I Instructions For Use, [employer], December 2017) Performed By: #### 1 [id number] ####[facility] [address] [place] [address] XR Chest Single Viewon 08-24 XR Chest [...] V. Transcribed by: VIVIAN Technologist: DAT Perry [facility] eGFRon 08-24-2020 GFR/1.73 sq M.predicted among blacks MDRD (S/P/Bld) [Vol rate/Area] mL/min/{1.73_m2} Normal >=59 [facility] Comment on above: Order Comment: Order added by Discern Expert. Result Comment: eGFR is race adjusted. AA=. Performed By: #### 1 [id number], [id number], [id number], [id number], [id number] ####[facility] [address] [place] [address] GFR/1.73 sq M.predicted among non-blacks MDRD (S/P/Bld) [Vol rate/Area] mL/min/{1.73_m2} Normal >=59 [facility] Comment on above: Order Comment: Order added by Discern Expert. Result Comment: Industrial Roofer jeniffer kidney disease could be indicated at eGFR's of less than 60 mL/min/1.73m2. Kidney failure is indicated at less than 15 mL/min/1.73m2. Performed By: #### 1 [id number], [id number], [id number], [id number], [id number], [id number], [id number] ####[facility] [address] [place] [address] HIP RIGHT 1 OR 2 VWS WITH PE LVISon 07-24-2020 HIP RIGHT 1 OR 2 VWS WITH PELVIS [facility] Department of Radiology [address] [place] [id number] Patient Name: LILIANA MICHAELS : 1965 [...] Electronically signed: Ana M Ponce. Transcribed by: [email or web address], User Resident: Electronically Signed by: ANA M PONCE @ 07/24/2020 10:01 AM Normal [facility] Comment on above: Order Comment: Views (X-RAY, HIP): Radiologic Protocol HIP RIGHT 1 OR 2 VWS WITH PE LVISon 04-24-2020 HIP RIGHT 1 OR 2 VWS WITH PELVIS [facility] Department of Radiology [address] [place] [id number] Patient Name: LILIANA MICHAELS : 1965 Sex: M Age: Race: White Pt. Location: Patient Status: D Ordered Date: 04/24/2020 10:40:00 AM Completed Date: 04/24/2020 10:48 AM Requesting Provider: JEY ELISE Attending Provider: Report Copy To: Signs & Symptoms: Z96.641 Presence of right artificial hip joint I10 History: [place] Comments: Views (X-RAY, HIP): Radiologic Protocol Exam: HIP RIGHT 1 OR 2 VWS WITH PELVIS HIP RIGHT 1 OR 2 VWS WITH PELVIS HISTORY: Hip replacement, follow-up. COMPARISON: 03/14/2020. IMPRESSION: 1. Redemonstrated hip prosthesis, no hardware complication or acute abnormality. Electronically signed: Ed España. Transcribed by: [email or web address], User Resident: Electronically Signed by: ED ESPAÑA @ 04/25/2020 08:22 AM Normal [facility] Comment on above: Order Comment: Views (X-RAY, HIP): Radiologic Protocol Operative Reporton 0 Operative Report MR#: [id number] [facility] Pt. Name: Liliana Michaels Room #: [id number] Discharge 03/15/2020 Date: Birthdate: 1965 OPERATIVE REPORT [...] a (more content not included)... Normal [facility] BASIC METABOLIC PANELon 11-0 Calcium [Mass/Vol] 8.8 mg/dL Normal 8.6-10.3 [facility] Comment on above: Order Comment: Views (X-RAY, HIP): Radiologic Protocol Performed By: #### 0 0071 ####[facility] [place] [address], [facility] Chloride [Moles/Vol] 98 mmol/L Normal 98-107 [facility] Comment on above: Order Comment: Views (X-RAY, HIP): Radiologic Protocol Performed By: #### 0 0071 ####[facility] [place] [address], [facility] CO2 [Moles/Vol] 30 mmol/L Normal 21-31 [facility] Comment on above: Order Comment: Views (X-RAY, HIP): Radiologic Protocol Performed By: #### 0 0071 ####[place] [address] Creatinine [Mass/Vol] 0.96 mg/dL Normal 0.70-1.30 [facility] Comment on above: Order Comment: Views (X-RAY, HIP): Radiologic Protocol Performed By: #### 0 0071 ####[facility] GFR/1.73 sq M.predicted among blacks MDRD (S/P/Bld) [Vol rate/Area] mL/min/{1.73_m2} Normal >60 [facility] Comment on above: Order Comment: Views (X-RAY, HIP): Radiologic Protocol Performed By: #### 0 0071 ####[facility] [place] [address], [facility] GFR/1.73 sq M.predicted among non-blacks MDRD (S/P/Bld) [Vol rate/Area] mL/min/{1.73_m2} Normal >60 [facility] Comment on above: Order Comment: Views (X-RAY, HIP): Radiologic Protocol Performed By: #### 0 0071 ####[facility] Glucose [Mass/Vol] 151 mg/dL High 70-100 [facility] Comment on above: Order Comment: Views (X-RAY, HIP): Radiologic Protocol Performed By: #### 0 0071 ####[place] [address] Potassium [Moles/Vol] 4.4 mmol/L Normal 3.5-5.1 [facility] Comment on above: Order Comment: Views (X-RAY, HIP): Radiologic Protocol Performed By: #### 0 0071 ####[facility] Sodium [Moles/Vol] 133 mmol/L Low 136-145 [facility] Comment on above: Order Comment: Views (X-RAY, HIP): Radiologic Protocol Performed By: #### 0 0071 ####[facility] Urea nitrogen [Mass/Vol] 20 mg/dL Normal 7-25 [facility] Comment on above: Order Comment: Views (X-RAY, HIP): Radiologic Protocol Performed By: #### 0 0071 ####[address] CBC COMPLETE BLOOD COUNTon 05-15-2019 Erythrocyte distribution width (RBC) [Ratio] 12.2 % Normal 11.5-15.0 [facility] Comment on above: Order Comment: No: D o not add to previous draw Performed By: #### 5 0608 #### [facility] [address] [place] [address], [facility] Hematocrit (Bld) [Volume fraction] 42.2 % Normal 39.0-50.0 [facility] Comment on above: Order Comment: No: D o not add to previous draw Performed By: #### 5 0608 #### [facility] [address] [place] [address], [facility] Hemoglobin (Bld) [Mass/Vol] 13.9 g/dL Normal 13.0-17.0 [facility] Comment on above: Order Comment: No: D o not add to previous draw Performed By: #### 5 0608 #### [facility] [address] [place] [address], [facility] MCH (RBC) [Entitic mass] 31.4 pg Normal 27.0-33.0 [facility] Comment on above: Order Comment: No: D o not add to previous draw Performed By: #### 5 0608 #### [facility] [address] [place] [address], [facility] MCHC (RBC) [Mass/Vol] 32.9 g/dL Normal 32.0-35.0 [facility] Comment on above: Order Comment: No: D o not add to previous draw Performed By: #### 5 0608 #### [facility] [address] [place] [address], [facility] MCV (RBC) [Entitic vol] 95.5 fL Normal 82.0-98.0 [facility] Comment on above: Order Comment: No: D o not add to previous draw Performed By: #### 5 0608 #### [facility] [address] [facility] [place] [address], [facility] Nucleated RBC/100 WBC (Bld) [Ratio] 0 % Normal 0-0 [facility] Comment on above: Order Comment: No: D o not add to previous draw Performed By: #### 5 0608 #### [facility] [address] [place] [address], [facility] PLAT CNT 254 10*3/uL Normal 150-400 The [facility] Comment on above: Order Comment: No: D o not add to previous draw Performed By: #### 5 0608 #### [facility] [address] [place] [address], [facility] RBC (Bld) [#/Vol] 4.42 10*6/uL Normal 4.20-5.70 [facility] Comment on above: Order Comment: No: D o not add to previous draw Performed By: #### 5 0608 #### [facility] [address] [facility] [address], [facility] WBC (Bld) [#/Vol] 14.44 10*3/uL High 4.00-10.60 [facility] Comment on above: Order Comment: No: D o not add to previous draw Performed By: #### 5 0608 #### [facility] [address] [place] [address], [facility] POC GLUCOSE LABon 03-15-2020 Glucose [Mass/Vol] 193 mg/dL High 70-100 [facility] Comment on above: Performed By: #### 8 [id number] #### [facility] [address] [place] [address], [facility] CBC W/DIFFon 03-14-2020 ABS IMM GRANS 0.2 10*3/uL Normal 0.0-0.2 The [facility] Comment on above: Performed By: #### 5 0103 ####[facility] [place] [address], [facility] ABS NEUTROPHILS 8.0 10*3/uL High 1.6-7.6 [facility] Comment on above: Performed By: #### 5 0103 ####[facility] [place] [address], [facility] Basophils (Bld) [#/Vol] 0.1 10*3/uL Normal 0.0-0.2 [facility] Comment on above: Performed By: #### 5 0103 ####[facility] [place] [address], [facility] Basophils/100 WBC (Bld) 1.1 % High 0.0-1.0 [facility] Comment on above: Performed By: #### 5 0103 ####[facility] [facility] [place] [address], [facility] Eosinophils (Bld) [#/Vol] 0.3 10*3/uL Normal 0.0-0.5 [facility] Comment on above: Performed By: #### 5 0103 ####[place] [address] [facility] [place] [address], [facility] Eosinophils/100 WBC (Bld) 2.7 % Normal 0.0-6.0 [facility] Comment on above: Performed By: #### 5 3 ####[place] [address] Erythrocyte distribution width (RBC) [Ratio] 12.3 % Normal 11.5-15.0 [facility] Comment on above: Performed By: #### 5 3 ####[facility] [place] [address], [facility] Hematocrit (Bld) [Volume fraction] 50.5 % High 39.0-50.0 [facility] Comment on above: Performed By: #### 5 3 ####[facility] [facility] [place] [address], [facility] Hemoglobin (Bld) [Mass/Vol] 17.3 g/dL High 13.0-17.0 [facility] Comment on above: Performed By: #### 5 3 ####[facility] IMMATURE GRANS 1.4 % High 0.0-1.[address] [facility] Comment on above: Performed By: #### 5 0103 ####[facility] [place] [address] Lymphocytes (Bld) [#/Vol] 1.8 10*3/uL Normal 1.2-4.0 [facility] Comment on above: Performed By: #### 5 3 ####[address] Lymphocytes/100 WBC (Bld) 15.6 % Low 20.0-45.0 [facility] Comment on above: Performed By: #### 5 102 ####[address] MCH (RBC) [Entitic mass] 31.7 pg Normal 27.0-33.0 [facility] Comment on above: Performed By: #### 5 102 ####[address] MCHC (RBC) [Mass/Vol] 34.3 g/dL Normal 32.0-35.0 [facility] Comment on above: Performed By: #### 5 3 ####[address] MCV (RBC) [Entitic vol] 92.7 fL Normal 82.0-98.0 [facility] Comment on above: Performed By: #### 5 3 ####[address] Monocytes (Bld) [#/Vol] 0.9 10*3/uL Normal 0.1-1.0 [facility] Comment on above: Performed By: #### 5 3 ####[facility] [place] [address], [facility] MONOS 8.2 % Normal 5.0-12.0 [facility] Comment on above: Performed By: #### 5 0103 ####[facility] [facility] [place] [address], [facility] Neutrophils/100 WBC (Bld) 71.0 % Normal 40.0-72.0 [facility] Comment on above: Performed By: #### 5 0103 ####[facility] [place] [address], [facility] Nucleated RBC/100 WBC (Bld) [Ratio] 0 % Normal 0-0 [facility] Comment on above: Performed By: #### 5 0103 ####[facility] [place] [address], [facility] PLAT CNT 301 10*3/uL Normal 150-400 The [facility] Comment on above: Performed By: #### 5 0103 ####[facility] [place] [address], [facility] RBC (Bld) [#/Vol] 5.45 10*6/uL Normal 4.20-5.70 [facility] Comment on above: Performed By: #### 5 0103 ####[facility] [place] [address], [facility] WBC (Bld) [#/Vol] 11.22 10*3/uL High 4.00-10.60 [facility] Comment on above: Performed By: #### 5 0103 ####[facility] [place] [address], [facility] HIP RIGHT 1 OR 2 VWS WITH PE LVISon 03-14-2020 HIP RIGHT 1 OR 2 VWS WITH PELVIS [facility] Department of Radiology [address] [place] [address] Patient Name: LILIANA MICHAELS : [...] purposes Electronically signed: Aria Baig. Transcribed by: [id number], User Resident: Electronically Signed by: ARIA BAIG @ 03/14/2020 03:44 PM Normal [facility] Comment on above: Order Comment: RT TH A POC GLUCOSE LABon 03-14-2020 Glucose [Mass/Vol] 222 mg/dL High 70-100 [facility] Comment on above: Performed By: #### 8 5499 #### [facility] [address] [place] [address], [facility] Glucose [Mass/Vol] 217 mg/dL High 70-100 [facility] Comment on above: Performed By: #### 8 5499 ####[facility] [place] [address], [place] Glucose [Mass/Vol] 141 mg/dL High 70-100 [facility] Comment on above: Performed By: #### 8 5499 #### [facility] [address] [place] [address], [facility] PORTABLE HIP RIGHT 1 OR 2 VW S WITH PELVISon 03-14-2020 PORTABLE HIP RIGHT 1 OR 2 VWS WITH PELVIS [facility] Department of Radiology [address] [place] [id number] Patient Name: LILIANA MICHAELS : 1965 Sex: [...] air Electronically signed: Aria Baig. Transcribed by: [email or web address], User Resident: Electronically Signed by: ARIA BAIG @ 03/14/2020 03:46 PM Normal [facility] Comment on above: Order Comment: Hardw are Evaluation, AP/Lateral TYPE AND SCREENon 03-14-2020 ABO INTERPRETATION O Normal [facility] Comment on above: Performed By: #### 6 2586 ####[facility] [facility].[address] RH INTERPRETATION Positive Normal The [facility] Comment on above: Performed By: #### 6 2586 ####[facility] [facility].[address] Vital Signs Date Time Vital Sign Value Performing Clinician Alisha pearson 07-14-2022 10:57-0500 Body height 162.56 cm Ishmael Simon [facility] DO Work Phone: 07-14-2022 10:57-0500 Body mass index (BMI) [Ratio] 32.96 kg/m2 Ishmael Simon [facility]: [facility] DO Work Phone: 07-14-2022 10:57-0500 Body surface area Derived from formula 1.92 m2 Ishmael Simon [facility] DO Work Phone: 07-14-2022 10:57-0500 Body weight 87.09 kg Ishmael A Naderer Work Phone: [facility] DO Work Phone: 07-14-2022 10:57-0500 Diastolic blood pressure 64 mm[Hg] Ishmael A Naderer Work Phone: [facility] [address] DO Work Phone: 07-14-2022 10:57-0500 Heart rate 34 /min Ishmael Rae Naderer Work Phone: [facility] [address] DO Work Phone: 07-14-2022 10:57-0500 Systolic blood pressure 118 mm[Hg] Ishmael Rae Naderer Work Phone: [facility] [address] DO Work Phone: 01-28-2022 09:37-0400 Body height 162.56 cm Ishmael Rae Naderer Work Phone: [facility] [address] DO Work Phone: 01-28-2022 09:37-0400 Body mass index (BMI) [Ratio] 30.9 kg/m2 Ishmael Rae Naderer Work Phone: [facility] 600 DO Work Phone: 01-28-2022 09:37-0400 Body surface area Derived from formula 1.87 m2 Ishmael Rae Naderer Work Phone: [facility] 600 DO Work Phone: 01-28-2022 09:37-0400 Body weight 81.65 kg Ishmael A Naderer Work Phone: [facility] 600 DO Work Phone: 01-28-2022 09:37-0400 Diastolic blood pressure 50 mm[Hg] Ishmael A Naderer Work Phone: [facility] 600 DO Work Phone: 01-28-2022 09:37-0400 Heart rate 41 /min Ishmael Simon Work Phone: [facility] 600 DO Work Phone: 01-28-2022 09:37-0400 Systolic blood pressure 112 mm[Hg] Ishmael Simon Work Phone: [facility] 600 DO Work Phone: Encounters Encounter Date [...] sit 15 minutes Ishmael Simon Work Phone: [facility] 600 DO Work Phone: Start: 07-14-2022 ambulatory [...] 02-16-2022 Chart Update Ishmael Simon Work Phone: [facility] 250 DO Work Phone: Start: 02-15-[address] Valentino Ferrer Facility:[id number] Start: 01-28-[address] Ishmael Simon Facility: Start: 01-28-2022 Office consultation new/estab patient 60 min Ishmael Simon Work Phone: [facility] 600 DO Work Phone: Start: 01-14-2022 End: 01-15-2022 ambulatory TERESO COLMENARES . Facility:[facility]1 Start: 01-01-2022 End: 01-02-[address] ISHMAEL SIMON Facility:[facility] Start: 12-15-2021 End: 12-15-[address] RICKY IBARRA . Facility:[facility]1 Start: 12-14-2021 Encounter for preprocedural laboratory examination DR RICKY IBARRA . The [facility] Start: 12-12-2021 End: 12-13-[address] ISHMAEL [...] Start: 10-03-2020 End: 10-04-2020 ambulatory SIMONE RUIZ Facility:[facility] Start: 03-26-2020 End: 04-10-2020 ambulatory JEY ELISE Facility:[facility] Start: 03-14-2020 End: 03-15-2020 ambulatory JEY R NILDA Facility:[facility] Procedures Date Procedure Procedure Detail Performing Clinician Start: 05-07-[address] ISHMAEL CROUCH Comment on above: Performed By: #### V ITAD, PSASC #### [facility] Laboratory [address] [place] [address] Dr. Britt Mendoza Start: 03-15-2020 ANESTH HIP ARTHROPLASTY SIMONE RUIZ Start: 03-15-2020 TOTAL HIP ARTHROPLASTY JEY Marilee ELISE Start: 03-14-2020 Antibody screen SIMONE BOLIVAR Comment on above: Performed By: #### 6 2586 ####[place] [address] Colonoscopy Ishmael A Naderer Work Phone: [...] Valentino Ferrer, Status: Pen, Time: 8:30 AM [facility] 600 DO Work Phone: Start: 07-14-2022 FUV, Provider: Valentino Ferrer, Status: Pen, Time: 10:40 AM FUV, Provider: Valentino Ferrer, Status: Pen, Time: 10:40 AM [facility] 600 DO Work Phone: Start: 02-15-2022 STRESS JUICE, Provider : CARLITO MCKEONI NUCLEAR 01,[id number], Status: Pen, Time: 2:00 PM STRESS JUICE, Provider: CARLITO MCKEONI NUCLEAR 01,[id number], Status: Pen, Time: 2:00 PM [facility] 600 DO Work Phone: Payers Date Payer Category Payer Unknown [id number] 2.16.8 [id number] 1965 Unknown [id number] 2.16.8 40.1.954059.3.579.2.647 1965 Unknown [id number] 2.16.8 40.1.707096.3.579.2.647 1965 Unknown [id number] 2.16.8 40.1.416050.3.579.2.1068 1964 Unknown [id number] 2.16. 840.1.761727.3.579.2.356 1965 Unknown [id number] 2.16. 840.1.071744.3.579.2.356 1965 Unknown [id number] 2.16.84 0.1.296669.3.579.2.593 1964 Unknown [id number] 2.16.84 0.1.600905.3.579.2.593 1964 Unknown [id number] 2.16.84 0.1.487403.3.579.2.593 1964 Unknown [id number] 2.16.84 0.1.835216.3.579.2.593 1964 Unknown [id number] 2.16.84 0.1.079454.3.579.2.593 1964 Unknown [id number] 2.16.84 0.1.754883.3.579.2.593 1964 Unknown [id number] 2.16.84 0.1.723711.3.579.2.593 1964 Unknown [id number] 2.16.84 0.1.407095.3.579.2.593 1964 Unknown [id number] 2.16.84 0.1.903924.3.579.2.593 1964 Unknown [id number] 2.16.84 0.1.695825.3.579.2.593 1964 Unknown [id number] 2.16.84 0.1.229231.3.579.2.593 1964 Unknown [id number] 2.16.84 0.1.872723.3.579.2.593 1964 Unknown [id number] 2.16.84 0.1.325261.3.579.2.593 1964 Unknown [id number] 2.16.84 0.1.109189.3.579.2.593 1964 Unknown [id number] 2.16.84 0.1.608160.3.579.2.593 1964 Unknown [id number] 2.16.84 0.1.703093.3.579.2.593 1964 Unknown [id number] 2.16.84 0.1.022307.3.579.2.593 1964 Unknown [id number] 2.16.84 0.1.461227.3.579.2.593 1964 Unknown [id number] 2.16.84 0.1.678059.3.579.2.593 1964 Unknown [id number] 2.16.84 0.1.753568.3.579.2.593 1964 Unknown [id number] 2.16.84 0.1.373888.3.579.2.593 1964 Unknown [id number] 2.16.84 0.1.719730.3.579.2.593 1964 Unknown [id number] 2.16.84 0.1.604227.3.579.2.593 1964 Unknown [id number] 2.16.84 0.1.326486.3.579.2.593 1964 Unknown [id number] 2.16.840 .1.227192.3.579.2.1259 1960 Medicaid [id number] 1960 Medicare [id number] Unknown [id number] Unknown Social History Date Type Detail Facility No alcohol use No alcohol use [facility] Adisn DO Work Phone: Comment on above: 1 [...] right medial portion of his leg. The [facility] 05-07-2022 Note CONSULTATION CONSULTATION DATE: 05/07/2022 HISTORY [...] three months' time unless otherwise indicated. The [facility] 01-14-2022 Note CONSULTATION CONSULTATION DATE: 01/14/2022 HISTORY [...] it was recommended that he see a shampoo technician, which he did do. He did a Holter monitor study and is following up with his shampoo technician on 01/28/2022. Current medications include gabapentin 300 [...] agrees with the plan of care. The [facility] 11-19-2021 Note CONSULTATION CONSULTATION DATE: 11/19/2021 This [...] to S1. Activities such as standing, walking, circuit manager and evening hours, stairs, bending and physical [...] be followed up in the clinic post-procedure. [facility] Signed and Approved by: TERESO COLMENARES . 11/27/2021 14:13:00 [facility] 10-22-2021 Note CONSULTATION CONSULTATION DATE: 10/22/2021 HISTORY [...] patient agrees with the plan of care. [facility] Signed and Approved by: TERESO COLMENARES . 11/04/2021 16:23:00 [facility] 10-01-2021 Note CONSULTATION CONSULTATION DATE: 10/01/2021 HISTORY [...] shape. He has seen Dr. Nunn in [place] in the past regarding his back, and [...] Approved by: TERESO COLMENARES . 10/08/2021 16:01:00 [facility] 08-31-2020 Note Microbiology PROCEDURE: Blood Culture Charcoal [...] Locations R1: [facility], [address] [place] [address], [facility]- , , [facility] Comment on above: Performed By: #### 1 [id number] ####[facility] [address] [place] [address] 08-31-2020 Note Microbiology PROCEDURE: Blood Culture Charcoal [...] Locations R1: This test was performed at: [facility], [address] [place] [address], [id number]- , [place], [facility] Comment on above: Performed By: #### 1 [id number] ####[facility] [address] [place] [address] History of Present illness Narrative Patient is here for cardiovascular evaluation for second opinion in regard to documents resting sinus bradycardia. The patient is 56-year-old with history of tobacco use and COPD was evaluated recently due to shortness of breath and his stress test showed questionable inferior wall ischemia. This led to a cardiac evaluation in [place] and its not clear to me whether [...] his recent ischemic evaluation5 follow-up in 6 [facility] 600 DO Work Phone: History of Present illness Narrative Patient is here for cardiovascular evaluation for second opinion in regard to documents resting sinus bradycardia. The patient is 56-year-old with history of tobacco use and COPD was evaluated recently due to shortness of breath and his stress test showed questionable inferior wall ischemia. This led to a cardiac evaluation in [place] and its not clear to me whether [...] his recent ischemic evaluation5 follow-up in 6 [facility] Work Phone: History of Present illness Narrative Patient is here for cardiovascular evaluation for second opinion in regard to documents resting sinus bradycardia. The patient is 56-year-old with history of tobacco use and COPD was evaluated recently due to shortness of breath and his stress test showed questionable inferior wall ischemia. This led to a cardiac evaluation in [place] and its not clear to me whether [...] his recent ischemic evaluation5 follow-up in 6 [facility] Work Phone: History of Present illness Narrative [...] ischemic evaluation. He underwent cardiac catheterization in [place] which showed no significant obstructive disease3. Hypertension4. [...] EKG or earlier if the need arise [facility] 600 DO Work Phone: Summary Purpose Family [...] and content) DATE CRE[facility] DATE CREATED AUTHOR AUTHOR'S ORGANIZ ATION 03/12/2021 [facility] DATE CREATED AUTHOR AUTHOR'S ORGANIZ ATION 02/16/2022 [facility] DATE CREATED AUTHOR AUTHOR'S ORGANIZ ATION 07/16/2022 [facility] DATE CREATED AUTHOR AUTHOR'S ORGANIZ ATION 07/16/2022 [employer] DATE CREATED AUTHOR AUTHOR'S ORGANIZ ATION 09/17/2022 [facility] DATE CREATED AUTHOR AUTHOR'S ORGANIZ ATION 04/15/2023 [facility] dical Specialists [facility] FOR RECORDS PERTAINING TO PATIENTS WHO [...] BE BASED ON THE PRIMARY CLINICAL RECORDS. [employer] provides no warranty or guarantee of the accuracy or completeness of information in this document.
== END 2023-05-26 12:01 | disposition home or self-care (01) ==
LOC: LAB 05-28 08:14
PROVIDERS: PCP Family Medicine; Visit Provider Family Medicine
DX: E11.65 Type 2 diabetes mellitus with hyperglycemia (principal)
CPT/HCPCS: 82043

== ENCOUNTER 2023-07-29 06:47 | Outpatient (OUT) | payer MEDICARE, SELFPAY ==
--- OUTSIDE RECORDS SUMMARY | 2023-07-29 06:56 | XMS_ITS | CCD ---
Author Organization [facility] Care Team Providers Care Jigger Artisan Name Role Phone SIMONE RUIZ Admitting Unavailable SIMONE RUIZ Attending Unavailable ISHMAEL SIMON Referring Unavailable ISHMAEL SIMON Primary Care Unavailable JEY ELISE Attending Unavailable JEY ELISE Surgeon Unavailable SC Procedure Practitioner Unavailab ISHMAEL Campoverde Primary Care Unavailable ISHMAEL SIMON Referring Unavailable JEY ELISE R Admitting Unavailable JEY ELISE Attending Unavailable ISHMAEL SIMON Primary Care Unavailable ISHMAEL SIMON Referring Unavailable SARA ELISED R Admitting Unavailable Ishmael Simon Unavailable Unavailable Unavailable Karson, Dr. Armstrong Attending Unavaila ble Traboulnci, Dr. Armstrong Referring Unavaila ble Naderer, Dr. Ishmael Dan Primary Care Unavai lable Karson, Dr. Armstrong Attending Unavaila ble Karson, Dr. Armstrong Referring Unavaila ble Naderer, Dr. Ishmael Dan Primary Care Unavai lable Alfred, Dr. Ishmael Dan Primary Care Unavai lable Alfred, Dr. Ishmael Dan Referring Unavai lable Trabsandi, Dr. Armstrong Attending Unavaila ble NADJANEE, DR ISHMAEL Rae Primary Care Unavailable IBARRA ., DR RICKY Bateman Attending Unavailable IBARRA ., DR RICKY Bateman Consulting Unavailable IBARRA ., DR RICKY Bateman Admitting Unavailable LAKSHMIPATHY ., NARSUAD Admitting Anupama vailable LAKSHMIPATHY ., WILDER Attending Anupama vailable LAKSHMIPATHY ., WILDER Consulting Anupama vailable ALFRED, DR ISHMEAL A Primary Care Unavailable IBARRA ., DR RICKY [...] vailable LAKSHMIPATHY ., NARENDSOSA Consulting Anupama vailable NADERER, DR ISHMAEL Rae Primary Care Unavailable [...] IBARRA ., DR RICKY Bateman Attending Unavailable NADEREMarilee, DR ISHMAEL Rae Primary Care Unavailable LAKSHMIPATHY ., NARENDRANATH Admitting Anupama vailable LAKSHMIPATHY ., NARENDRANATH Attending Anupama vailable JOSE CRUZ LEE Consulting Unavailable NADERER, DR ISHMAEL Rae Primary Care Unavailable LAKSHMIPATHY ., NARENDRANATH Consulting Anupama vailable LAKSHMIPATHY ., NARENDRANATH Admitting [...] RICKY Bateman Attending Unavailable IBARRA ., DR RIKCY Bateman Admitting Unavailable NADERER, DR ISHMAEL Rae [...] Admitting Unavailable COLMENARES ., TERESO Attending Unavailable ZIEBER, DR FLEX Hunt Consulting Unavailable NADERER, DR ISHMAEL Rae Primary Care Unavailable COLMENARES ., TERESO Consulting Unavailable IBARRA ., DR RICKY Bateman Consulting Unavailable IBARRA ., DR RICKY Bateman Admitting Unavailable IBARRA ., DR RICKY Bateman Attending Unavailable NADEREMarilee, DR ISHMAEL Rae Primary Care Unavailable NADERER, DR ISHMAEL Rae Primary Care Unavailable PAY ., DR MCINTOSH Admitting Unavailable PAY ., DR MCINTOSH Attending Unavailable PAY ., DR MCINTOSH Consulting Unavailable LAKSHMIPATHY ., NARENDRANATH Admitting Anupama vailable LAKSHMIPATHY ., WILDER Attending Anupama vailable NADJANEE, DR ISHMAEL Rae Primary Care Unavailable NADERER, DR ISHMAEL Rae Attending Unavailable NADERER, DR ISHMAEL Rae Admitting Unavailable NADERER, DR ISHMAEL Rae Primary Care Unavailable ZIEBTIRSO, DR FLEX Hunt Consulting Unavailable NADEREMarilee, DR ISHMAEL Rae Consulting Unavailable COLMENARES ., TERESO Consulting Unavailable IBARRA ., DR RICKY Bateman Admitting Unavailable IBARRA ., DR RICKY Bateman Attending Unavailable NADERER, DR ISHMAEL Rae Primary Care Unavailable NADEREMarilee, ISHMAEL Attending Unavailable Naderer Ishmael LANE Primary Care Provider VALENTINO FERRER Attending Unavailable NADEREMarilee, ISHMAEL DAN Primary Care UnavailVALENTINO Fernandez Referring Unavailable ISHMAEL SIMON Primary Care UnavailAMADOR Saunders Attending Unavailable ISHMAEL SIMON Primary Care UnavailVALENTINO Fernandez Referring Unavailable Medications Current Medications Medication Drug Class(es) Dates Sig (Normalized) Sig (Original) acetaminophen 325 mg / oxyCODONE hydrochloride 7.5 mg oral tablet (6 sources) Opioid Agonist Start: 03-30-2021 take 1 tablet by mouth every six hours as needed oxyCODONE-acetami nophen (Percocet) 7.5-325 mg tablet Take 1 tablet by mouth every 6 hours if needed for severe pain (7 - 10). 0 03/30/2021 Active Start: 03-30-2021 take 1 tablet by mindi th four times daily as needed oxyCODONE-Acetaminophen 7.5-325 MG Oral Tablet TAKE 1 TABLET BY MOUTH FOUR TIMES A DAY NEEDED Quantity: 120 Refills: 0 Ordered: 01-Apr-2021 DO Start : 30-Mar-2021 Active [id number] 200 actuat albuterol 0.09 mg/actuat metered dose inhaler (1 source) beta2-Adrenergic Agonist take 2 puff(s) by inhalation every four hours albuterol (Ventolin HFA) 90 mcg/actuation inhaler Inhale 2 puffs every 4 hours if needed. 0 Active cetirizine hydrochloride 10 mg oral tablet (6 sources) Histamine-1 Receptor Antagonist take 1 tablet by mouth once daily at bedtime cetirizine (ZyrTEC) 10 mg tablet Take 1 tablet (10 mg) by mouth once daily at bedtime. 0 Active 30 actuat fluticasone furoate 0.1 mg/actuat / umeclidinium 0.0625 mg/actuat / vilanterol 0.025 mg/actuat dry powder inhaler (6 sources) Anticholinergic, Corticosteroid, beta2-Adrenergic Agonist fluticasone-ume clidi n-vilanter (TRELEGY-ELLIPTA) 100-62.5-25 mcg blister with device Inhale 1 puff. Use as directed 0 Active Trelegy Ellipta 100-62.5-25 MCG/INH AEPB USE DIRECTED Quantity: 0 Refills: 0 Ordered: 28-Jan-2022 DO Active furosemide 40 mg oral tablet (6 sources) Loop Diuretic take 1 tablet by mouth twice daily furosemide (Lasix) 40 mg tablet Take 1 tablet (40 mg) by mouth 2 times a day. 0 Active gabapentin 300 mg oral capsule (6 sources) Anti-epileptic Agent take 1 capsule by mouth once daily gabapentin (Neurontin) 300 mg capsule Take 1 capsule (300 mg) by mouth once daily. 0 Active montelukast 10 mg oral tablet (6 sources) Leukotriene Receptor Antagonist take 1 tablet by mouth once daily at bedtime Singulair 10 mg tablet Take 1 tablet (10 mg) by mouth once daily at bedtime. 0 Active nabumetone 500 mg oral tablet (6 sources) Nonsteroidal Anti-inflammatory Drug take 1 tablet by mouth twice daily nabumetone (Relafen) 500 mg tablet Take 1 tablet (500 mg) by mouth 2 times a day. 0 Active take 1 tablet by mouth once victoriano y Nabumetone 500 MG Oral Tablet TAKE 1 TABLET EVERY 12 HOURS DAILY. Quantity: 0 Refills: 0 Ordered: 28-Jan-2022 DO Active omeprazole 40 mg delayed release oral capsule (6 sources) Proton Pump Inhibitor take 1 capsule by mouth once daily omeprazole (PriLOSEC) [address] capsule Take 1 capsule (40 mg) by mouth once daily. 0 Active oxygen (O2) gas therapy (1 source) oxygen (O2) gas therapy 2l at bedtime 0 Active spironolactone 100 mg oral tablet (6 sources) Aldosterone Antagonist take 1 tablet by mouth once daily at breakfast Aldactone 100 mg tablet Take 1 tablet (100 mg) by mouth once daily with breakfast. 0 Active Completed/Discontinued Medications Medication Drug Class(es) Dates Sig (Normalized) Sig (Original) cholecalciferol 0.05 mg oral capsule (4 sources) Vitamin D take 1 capsule by mouth once daily Vitamin D 50 MCG (1999) Oral Capsule TAKE 1 CAPSULE Daily Quantity: 90 Refills: 0 Ordered: 28-Jan-2022 DO Active Dupixent SOPN (1 source) Dupixent SOPN US E DIRECTED Quantity: 0 Refills: 0 Ordered: 14-Jul-2022 DO Active Oxygen (5 sources) Oxygen 2l at bed time Quantity: 0 Refills: 0 Ordered: 28-Jan-2022 DO Active triamcinolone acetonide 1 mg/ml topical cream (4 sources) Corticosteroid Triamcinolone Acetonide 0.1 % External Cream USE DIRECTED. Quantity: 0 Refills: 0 Ordered: 28-Jan-2022 DO Active Ventolin HFA AERS (5 sources) Ventolin HFA AER S USE DIRECTED Quantity: 0 Refills: 0 Ordered: 28-Jan-2022 DO Active Problems Active Problems Problem Classification Problem Date Documented Da te Episodic/Chronic Abdominal pain (8 sources) Unspecified abdominal pain; Translations: [Right lower quadrant pain] Onset: 06-11-2022 Episodic Administrative/social admission (3 sources) Patient encounter status; Translations: [Persons encountering health services in other specified circumstances] Onset: 07-22-2023 07-22-2023 Episodic Cardiac dysrhythmias (4 sources) Sick sinus syndrome; Translations: [Sick sinus syndrome] Onset: 07-13-2023 07-22-2023 Chronic Cardiac dysrhythmias (14 sources) Sinus bradycardia; Translations: [Other specified cardiac dysrhythmias] Onset: 01-01-2022 Episodic Chronic obstructive pulmonary disease and bronchiectasis (11 sources) Chronic obstructive lung disease; Translations: [Chronic airway obstruction, not elsewhere classified] Onset: 05-23-2023 07-22-2023 Chronic Conduction disorders (4 sources) Chronotropic incompetence; Translations: [Other specified conduction disorders] Onset: 07-13-2023 07-22-2023 Chronic Congestive heart failure; nonhypertensive (1 source) Chronic diastolic heart failure; Translations: [Chronic diastolic (congestive) heart failure] Onset: 04-13-2023 07-22-2023 Chronic Diabetes mellitus with complications (2 sources) Type 2 diabetes mellitus with hyperglycemia; Translations: [Type 2 diabetes mellitus] Onset: 05-13-2022 07-22-2023 Chronic Disorders of lipid metabolism (1 source) Hyperlipidemia, unspecified; Translations: [HYPERLIPIDEMIA UNSPECIFIED] Onset: 05-13-2022 Chronic Essential hypertension (2 sources) Essential (primary) hypertension; Translations: [Benign essential hypertension] Onset: 05-13-2022 07-22-2023 Chronic Malaise and fatigue (3 sources) Fatigue; Translations: [Other fatigue] Onset: 07-22-2023 07-22-2023 Episodic Nutritional deficiencies (4 sources) Vitamin D deficiency, unspecified; Translations: [VITAMIN D DEFICIENCY UNSPECIFIED] Onset: 05-07-2022 Chronic Other connective tissue disease (4 sources) Neuralgia and neuritis, unspecified; Translations: [NEURALGIA AND NEURITIS UNSPECIFIED] Onset: 07-23-2022 Episodic Other hereditary and degenerative nervous system conditions (1 source) Dystonia, unspecified; Translations: [DYSTONIA UNSPECIFIED] Onset: 07-30-2022 Chronic Other lower respiratory disease (6 sources) Dyspnea; Translations: [Other respiratory abnormalities] Onset: 05-23-2023 05-23-2023 Episodic Other lower respiratory disease (1 source) Dyspnea, unspecified; Translations: [Dyspnea, unspecified] Onset: 02-15-2022 Episodic Other lower respiratory disease (2 sources) Other forms of dyspnea; Translations: [Other forms of dyspnea] Onset: 05-23-2023 Episodic Other nervous system disorders (4 sources) Other specified mononeuropathies; Translations: [OTHER SPECIFIED MONONEUROPATHIES] Onset: 07-20-2022 Chronic Other nervous system disorders (1 source) Other chronic pain; Translations: [OTHER CHRONIC PAIN] Onset: 01-22-2022 Chronic Other nutritional; endocrine; and metabolic disorders (5 sources) Obesity; Translations: [Obesity, unspecified] Chronic Other nutritional; endocrine; and metabolic disorders (1 source) Obesity, unspecified; Translations: [OBESITY UNSPECIFIED] Onset: 05-13-2022 Chronic Other nutritional; endocrine; and metabolic disorders (2 sources) Body mass index 30+ - obesity; Translations: [Body mass index (BMI) 34.0-34.9, adult] Onset: 07-13-2023 07-22-2023 Chronic Other nutritional; endocrine; and metabolic disorders (2 sources) Body mass index (BMI) 34.0-34.9, adult; Translations: [Body mass index (BMI) 34.0-34.9, adult] Onset: 07-13-2023 Chronic Other screening for suspected conditions (not mental disorders or infectious disease) (11 sources) Cardiovascular stress test abnormal; Translations: [Other nonspecific abnormal results of function study of cardiovascular system] Onset: 02-15-2022 05-23-2023 Episodic Peripheral and visceral atherosclerosis (1 source) Peripheral vascular disease; Translations: [Peripheral vascular disease, unspecified] Onset: 04-13-2023 07-22-2023 Chronic Residual codes; unclassified (1 source) Obstructive sleep apnea syndrome; Translations: [Obstructive sleep apnea (adult) (pediatric)] Onset: 04-13-2023 07-22-2023 Chronic Spondylosis; intervertebral disc disorders; other back problems (10 sources) Spondylosis without myelopathy or radiculopathy, lumbar region; Translations: [Other intervertebral disc degeneration, lumbar region] Onset: 10-02-2021 Chronic Substance-related disorders (13 sources) Smoker; Translations: [Tobacco use disorder] Onset: [...] Classification Problem Date Documented Da te Episodic/Chronic Other aftercare (1 source) Other fpc (current) drug therapy; Translations: [OTH PENITENTIARY CURRENT DRUG THERAPY] Onset: 05-13-2022 Episodic Other [...] [CONTACT W/AND (SUSP) EXPOS COVID-19] Onset: 04-12-2022 Unclassified (1 source) Onset: 07-13-2023 07-13-2023 Results Test Name Value Interpretation Reference Range Facility ECG 12 lead (Clinic Performe d)on 07-22-2023 EKG shows marked sinus bradycardia rate of 41 bpm QRS ration 100 ms QT corrected he had a 91 ms. Rhythm strip shows the same pattern. [facility] Work Phone: CT LUNG CANCER SCREENINGon 0 07-15-2022 CT [...] by: BATSHEVA ALVARADO Date: 2022-07-15 12:[address] [facility] Office Visit [...] we can help. You may also call [phone] for free resources and assistance.; Status:Complete - [...] ischemic evaluation. He underwent cardiac catheterization in [place] which showed no significant obstructive disease 3. [...] BY MOUTH FOUR TIMES A DAY NEEDED Irdxbk0i at bedtime Singulair 10 MG Oral TabletTAKE [...] negative for complaint. Vitals Vital Signs Recorded: 14Jul2022 10:57AM Heart Rate34, L Radial Jssizxnc953, LUE, Sitting Fouebsjkz90, LUE, Sitting Height5 ft 4 in Qnjqvr894 lb BMI Rhnbdkcayq73.96 kg/m2 BSA Calculated1.92 Tobacco Usea) Yes Patient encouraged to st (more content not included)... Normal [employer] Tobacco Screening.on 023 Adult depression screening assessment No [facility] [employer] DO Work Phone: Fall risk assessment a) No falls within the last year [facility] [employer] DO Work Phone: Tobacco use status [facility] a) Yes -[facility] 600 DO Work Phone: Tobacco Screening. Yes [facility] 600 DO Work Phone: CT ABD/PELV W CONon [...] FLEX JACOBS Date: 2022-06-11 10:06 Normal [facility] CBC AUTO DIFFon 05-07-2022 BASO # 0.1 103/ul Normal 0.0-0.1 [facility] Comment on above: Performed By: #### C BC #### [facility] [address] [address] [address] Britt Mendoza Basophils/100 WBC (Bld) 1.6 % Normal 0.2-2.0 [facility] Comment on above: Performed By: #### C BC #### [facility] [address] [address] [address] Britt Mendoza EO # 0.2 103/ul Normal 0.0-0.7 [facility] Comment on above: Performed By: #### C BC #### [facility] [address] [address] [address] Britt Mendoza Eosinophils/100 WBC (Bld) 3.0 % Normal 0.9-7.0 [facility] Comment on above: Performed By: #### C BC #### [facility] [address] [place] [address] Dr. Britt Mendoza Erythrocyte distribution width (RBC) [Ratio] 12.4 % Normal 11.0-15.0 [facility] Comment on above: Performed By: #### C BC #### [facility] [address] [place] [address] Dr. Britt Mendoza Hematocrit (Bld) [Volume fraction] 43.2 % Normal 42.0-54.0 [facility] Comment on above: Performed By: #### C BC #### [facility] [address] [place] [address] Dr. Britt Mendoza Hemoglobin (Bld) [Mass/Vol] 14.7 g/dL Normal 14.0-18.0 [facility] Comment on above: Performed By: #### C BC #### [facility] [address] [place] [address] Dr. Britt Mendoza IG # 0.11 10e3/ul Critically high 0.00-0.[address] [facility] Comment on above: Performed By: #### C BC #### [facility] [address] [place] [address] Dr. Britt Mendoza IG % 1.4 % Critically high 0.0-0.5 [facility] Comment on above: Performed By: #### C BC #### [facility] [address] [place] [address] Dr. Britt Mendoza LYMPH # 1.7 103/ul Normal 1.2-3.8 [facility] Comment on above: Performed By: #### C BC #### [facility] [address] [place] [address] Dr. Britt Mendoza Lymphocytes/100 WBC (Bld) 21.6 % Normal 20.5-60.0 [facility] Comment on above: Performed By: #### C BC #### [facility] [address] [place] [address] Dr. Britt Mendoza MANUAL DIFF REQ NO [facility] Comment on above: Performed By: #### C BC #### [facility] [address] [place] [address] Dr. Britt Mendoza MCH (RBC) [Entitic mass] 31.2 pg Normal 25.9-34.0 [facility] Comment on above: Performed By: #### C BC #### [facility] [address] [place] [address] Dr. Britt Mendoza MCHC (RBC) [Mass/Vol] 34.0 g/dL Normal 29.9-35.2 [facility] Comment on above: Performed By: #### C BC #### [facility] [address] [place] [address] Dr. Britt Mendoza MCV (RBC) [Entitic vol] 91.7 fL Normal 80.0-94.0 [facility] Comment on above: Performed By: #### C BC #### [facility] [address] [place] [address] Dr. Britt Mendoza MONO # 0.5 103/ul Normal 0.3-0.8 [facility] Comment on above: Performed By: #### C BC #### [facility] [address] [place] [address] Dr. Britt Mendoza Monocytes/100 WBC (Bld) 6.8 % Normal 1.7-12.0 [facility] Comment on above: Performed By: #### C BC #### [facility] [id number] Britt Mendoza NEUT # 5.0 103/ul Normal 1.4-6.5 [facility] Comment on above: Performed By: #### C BC #### [facility] [address] [address] [address] Britt Mendoza Neutrophils/100 WBC (Bld) 65.6 % Normal 43.0-75.0 [facility] Comment on above: Performed By: #### C BC #### [facility] [address] [address] [address] Britt Mendoza Platelet mean volume (Bld) [Entitic vol] 9.7 fL Normal 9.5-13.5 [facility] Comment on above: Performed By: #### C BC #### [facility] [address] [address] [address] Britt Mendoza PLT 244 103/ul Normal 150-450 [facility] Comment on above: Performed By: #### C BC #### [facility] [address] [address] [address] Britt Mendoza RBC 4.71 106/ul Normal 4.70-6.10 [facility] Comment on above: Performed By: #### C BC #### [facility] [address] [address] [address] Britt Mendoza WBC 7.6 103/ul Normal 4.0-11.0 [facility] Comment on above: Performed By: #### C BC #### [facility] [address] [address] [address] Britt Mendoza GLYCOHEMOGLOBIN A1Con 2021 ADA RECOMMENDATION SEE BELOW Normal [facility] Comment on above: Result Comment: ADA RECOMMENDED LIMIT 4.0 - 6.0 ADA THERAPEUTIC TARGET < 7.0 ACTION SUGGESTED > 7.0 Performed By: #### A 1C ####[facility] [address] [address]Dr. Britt Mendoza Glucose [Mass/Vol] 117 mg/dL Normal [facility] Comment on above: Performed By: #### A 1C ####[facility] [address] [id number][address] Britt Mendoza HbA1c (Bld) [Mass fraction] 5.7 % Normal 4.5-6.2 [facility] Comment on above: Performed By: #### A 1C ####[facility] [address] [address]Dr. Britt Mendoza LIPID PROFILEon 05-07-2022 CHOL-HDL RATIO NORM SEE BELOW Normal [facility] Comment on above: Result Comment: 3.3 - 4.4 LOW RISK 4.4 - 7.1 AVERAGE RISK 7.1 - 11.0 MODERATE RISK >11.0 HIGH RISK Performed By: #### B MP, LIVER, LIPID, TSH ####[facility] [address] [address]Dr. Britt Mendoza Cholesterol [Mass/Vol] 235 mg/dL Critically high <=200 [facility] Comment on above: Performed By: #### B MP, LIVER, LIPID, TSH ####[facility] [address] [place], [place] [address]Dr. Britt Mendoza Cholesterol in HDL [Mass/Vol] 40 mg/dL Normal 40-60 [facility] Comment on above: Performed By: #### B MP, LIVER, LIPID, TSH ####[facility] [address] [address]Dr. Britt Mendoza Cholesterol in LDL [Mass/Vol] 156.8 mg/dL Normal [facility] Comment on above: Performed By: #### B MP, LIVER, LIPID, TSH ####[facility] [address] [address]Dr. Britt Mendoza Cholesterol.total/C holesterol in HDL [Mass ratio] 5.9 {ratio} Normal [facility] Comment on above: Performed By: #### B MP, LIVER, LIPID, TSH ####[facility] [address] [address]Dr. Anjalilan Mendoza HDL NORMAL > or = 60 mg/dl - LO W CARDIOVASCULAR RISK <40 mg/dl - HIGH CARDIOVASCULAR RISK Normal [facility] Comment on above: Performed By: #### B MP, LIVER, LIPID, TSH ####[facility] [address] [id number]. Britt Mendoza LDL CALC NORMAL SEE BELOW Normal [facility] Comment on above: Result Comment: <100 mg/dl OPTIMAL 100 - 129 mg/dl NEAR OR ABOVE OPTIMAL 130 - 159 mg/dl BORDERLINE HIGH 160 - 189 mg/dl HIGH >190 mg/dl VERY HIGH Performed By: #### B MP, LIVER, LIPID, TSH ####[facility] [address] [address]Dr. Anjalidaniel Mendoza Triglyceride [Mass/Vol] 191 mg/dL Critically high <=150 [facility] Comment on above: Performed By: #### B MP, LIVER, LIPID, TSH ####[facility] [address] [address]Dr. Anjalidaniel Mendoza VLDL CALC 38.2 mg/dL Normal [facility] Comment on above: Performed By: #### B MP, LIVER, LIPID, TSH ####[facility] [address] [address]Dr. Anjalidaniel Mendoza LIVER PROFILEon 05-07-2022 Albumin [Mass/Vol] 3.6 g/dL Normal 3.4-5.0 [facility] Comment on above: Performed By: #### B MP, LIVER, LIPID, TSH ####[facility] [address] [id number]. Anjalidaniel Mendoza Albumin/Globulin [Mass ratio] 1.1 {ratio} Normal [facility] Comment on above: Performed By: #### B MP, LIVER, LIPID, TSH ####[facility] [address] [address]Dr. Britt Mendoza ALP [Catalytic activity/Vol] 84 U/L Normal 46-116 [facility] Comment on above: Performed By: #### B MP, LIVER, LIPID, TSH ####[facility] [address] [address]Dr. Britt Mendoza ALT [Catalytic activity/Vol] 34 U/L Normal 16-63 [facility] Comment on above: Performed By: #### B MP, LIVER, LIPID, TSH ####[facility] [address] [address]Dr. Britt Mendoza AST [Catalytic activity/Vol] 21 U/L Normal 15-37 [facility] Comment on above: Performed By: #### B MP, LIVER, LIPID, TSH ####[facility] [address] [address]Dr. Britt Mendoza BILI, CONJUGATED 0.1 mg/dL Normal 0.0-0.2 [facility] Comment on above: Performed By: #### B MP, LIVER, LIPID, TSH ####[facility] [address] [address]Dr. Britt Mendoza Bilirubin [Mass/Vol] 0.4 mg/dL Normal 0.2-1.0 [facility] Comment on above: Performed By: #### B MP, LIVER, LIPID, TSH ####[facility] [address] [address]Dr. Britt Mendoza Globulin (S) [Mass/Vol] 3.4 g/dL Normal [facility] Comment on above: Performed By: #### B MP, LIVER, LIPID, TSH ####[facility] [address] [address]DrAtiya Mendoza Protein [Mass/Vol] 7.0 g/dL Normal 6.4-8.2 [facility] Comment on above: Performed By: #### B MP, LIVER, LIPID, TSH ####[facility] [address] [address]Dr. Britt Mendoza PROF CHEM 8 (BAS METB)on Anion gap [Moles/Vol] 13.8 mmol/L Normal [facility] Comment on above: Result Comment: Prev iously reported as: -2.3 On 05/07/2022 13:50 By DM9 Performed By: #### B MP, LIVER, LIPID, TSH #### [facility] [address] [address] [address] Britt Mendoza Calcium [Mass/Vol] 9.2 mg/dL Normal 8.5-10.1 [facility] Comment on above: Performed By: #### B MP, LIVER, LIPID, TSH #### [facility] [address] [address] [address] Britt Mendoza Chloride [Moles/Vol] 99 mmol/L Normal 98-107 [facility] Comment on above: Result Comment: Prev iously reported as: 106 On 05/07/2022 13:50 By DM9 Performed By: #### B MP, LIVER, LIPID, TSH #### [facility] [place] [facility] [address] [address] [address] Britt Mendoza CO2 [Moles/Vol] 27.3 mmol/L Normal 21.0-32.0 [facility] Comment on above: Result Comment: Prev iously reported as: 29.2 On 05/07/2022 13:50 By DM9 Performed By: #### B MP, LIVER, LIPID, TSH #### [facility] [place] [facility] [address] [address] [address] Britt Mendoza Creatinine [Mass/Vol] 1.12 mg/dL Normal 0.70-1.30 [facility] Comment on above: Performed By: #### B MP, LIVER, LIPID, TSH #### [facility] [place] [facility] [address] [address] [address] Britt Mendoza EGFR-AF MALAWIAN >60 Normal >=60 [facility] Comment on above: Performed By: #### B MP, LIVER, LIPID, TSH #### [facility] [place] [facility] [address] [address] [address] Britt Mendoza EGFR-NON AF MALAWIAN >60 Normal >=60 [facility] Comment on above: Performed By: #### B MP, LIVER, LIPID, TSH #### [facility] [place] [facility] [address] [address] [address] Britt Mendoza Glucose [Mass/Vol] 108 mg/dL Critically high 74-106 [facility] Comment on above: Performed By: #### B MP, LIVER, LIPID, TSH #### [facility] [place] [facility] [address] [address] [address] Britt Mendoza Potassium [Moles/Vol] 4.1 mmol/L Normal 3.5-5.1 [facility] Comment on above: Result Comment: Prev iously reported as: 3.9 On 05/07/2022 13:50 By DM9 Performed By: #### B MP, LIVER, LIPID, TSH #### [facility] [place] [facility] [address] [address] [address] Britt Mendoza Sodium [Moles/Vol] 136 mmol/L Normal 136-145 [facility] Comment on above: Result Comment: Prev iously reported as: 129 On 05/07/2022 13:50 By DM9 Performed By: #### B MP, LIVER, LIPID, TSH #### [facility] [place] [facility] [address] [address] [address] Britt Mendoza Urea nitrogen [Mass/Vol] 26.0 mg/dL Critically high 7.0-18.0 [facility] Comment on above: Performed By: #### B MP, LIVER, LIPID, TSH #### [facility] [place] [facility] [address] [address] [address] Britt Mendoza Urea nitrogen/Creatinine [Mass ratio] 23.2 mg/mg Normal [facility] Comment on above: Performed By: #### B MP, LIVER, LIPID, TSH #### [facility] [place] [facility] [address] [address] [address] Britt Mendoza TSHon 05-07-2022 TSH 0.828 uIU/mL Normal 0.358-3.740 [facility] Comment on above: Performed By: #### B MP, LIVER, LIPID, TSH ####[facility] [place] [facility] [address] [address]Dr[address] Britt Mendoza VITAMIN D 25 OHon 05-07-2022 VIT D 25-OH 45.6 ng/mL Normal [facility] Comment on above: Performed By: #### V ITAD, PSASC #### [facility] [place] [facility] [address] [address] [address] Britt Mendoza VIT D RANGES SEE BELOW Normal [facility] Comment on above: Result Comment: <20 ng/mL Vit D deficient 20 - <30 ng/mL Vit D insufficient 30 - 100 ng/mL Vit D sufficient >100 ng/mL Potential Toxicity Performed By: #### V ITAD, PSASC #### [facility] [place] [facility] [address] [place], [place] [address] Dr. Britt Mendoza Covid-19 PCR ([facility])on SARS-CoV-2 (COVID-19) RNA KATT+probe Ql (Unsp spec) Detected Critically abnormal NOT DETECTED [facility] [place] [facility] Comment on above: Result Comment: This test is not yet approved or cleared by the [place] FDA. When there are no FDA-approved or cleared tests available, and other criteria are met, FDA can make tests available under an emergency access mechanism called an Emergency Use Authorization (EUA). The EUA for this test is supported by the [place] of Health and Human Service's declaration that [...] longer be used). Performed By: #### C VDTB ####[facility] [place] [facility] [address] [place], [place] [address]FkDr. Britt Mendoza Cardiac Stress Teston 2021 Cardiac Stress Test [address], [address] [address] Exercise Stress Test Patient Name: LILIANA MICHAELS JR. Ordering Physician: [id number] Ferrer MD Study Date: 02/15/2022 Reading Physician: [id number] Ferrer MD MRN/PID: [id number] Supervising Physician: [id number] Rivera MD Accession/Order#: [id number] Referring Physician: VALENTINO FERRER Date of : 1965 PCP: Ishmael Simon Gender: M Fellow: Height: 162.56 cm Nurse: Yunior Bhatti RN Weight: 81.65 kg Dockworker: NA BSA: 1.87 m2 Technologist: BMI: 30.90 kg/m2 Additional Staff: Age: 56 years cc report to: Patient Location: report to: [id number] Valentino Ferrer MD Study Type: Cardiac Stress Test Diagnosis/ICD: R94.31-Abnormal electrocardiogram [ECG] [EKG]; R00.1-Bradycardia, unspecified; R06.00-Dyspnea, unspecified Indication: Dyspnea Procedure/CPT: Stress Test Interpretation-42800; Stress Test Supervision-57021 Falls Risk: Low: Patient has low risk [...] 7. An element of chronotropic incompetency noted. [id number] Valentino Ferrer MD Electronically signed on 02/16/2022 at 2:52:20 PM Final Normal [facility] Cardiac Stress Test Please click on the link to view the study images [facility] Work Phone: Cardiac Stress Test [facility] Work Phone: Office Visit (Cardiology)on [...] Status:Hold For - Scheduling,Retrospect caesar Authorization; Requested for:[id number]; Class 1 obesity with body mass index (BMI) of 30.0 to 30.9 in adult Healthy Weight Tips; Status:Complete - Retrospective Authorization; Done: [id number] Some eating tips that can help you lose weight.; Status:Complete - Retrospective Authorization; Done: [id number] Sinus bradycardia You need to stop smoking. Though it is not easy, more than half of all adult smokers have quit. We encourage you to write down all the reasons you should quit smoking and set a quit date for yourself. Ask us how we can help. You may also call 2-937-CGFFNOW for free resources and assistance.; Status:Complete - Retrospective Authorization; Done: [id number] SocHx: Current smoker Continue with our present treatment plan.; Status:Complete - Retrospective Authorization; Done: [id number] Tobacco Use Screening; Status:Complete; Done: [id number] Patient Instructions Please bring all medicines, vitamins, [...] This led to a cardiac evaluation in [place] and its not clear to me whether [...] Oral Capsule Delayed ReleaseTAKE 1 CAPSULE Daily Fvxrwm8x at bedtime Sin (more content not included)... Normal [facility] Tobacco Screening.on 022 Adult depression screening assessment No [facility] 600 DO Work Phone: Fall risk assessment a) No falls within the last year [facility] 600 DO Work Phone: Tobacco use status CPHS a) Yes [facility] 600 DO Work Phone: Tobacco Screening. Yes [facility] 600 DO Work Phone: Covid-19 PCR (CVDTB)on SARS-CoV-2 (COVID-19) RNA KATT+probe Ql (Unsp spec) Not detected Normal NOT DETECTED [facility] Comment on above: Result Comment: This test is not yet approved or cleared by the [place] FDA. When there are no FDA-approved or cleared tests available, and other criteria are met, FDA can make tests available under an emergency access mechanism called an Emergency Use Authorization (EUA). The EUA for this test is supported by the [place] of Health and Human Service's (HHS's) declaration [...] consistent with SARS-CoV-2. Performed By: #### [facility] #### [facility] [address] [place] [address] Dr. Britt Mendoza Covid-19 PCR (CVDTBH)on 11-07 SARS-CoV-2 (COVID-19) RNA KATT+probe Ql (Unsp spec) Not detected Normal NOT DETECTED [facility] Comment on above: Result Comment: This test is not yet approved or cleared by the [place] FDA. When there are no FDA-approved or cleared tests available, and other criteria are met, FDA can make tests available under an emergency access mechanism called an Emergency Use Authorization (EUA). The EUA for this test is supported by the [employer] of Health and Human Service's (HHS's) declaration [...] consistent with SARS-CoV-2. Performed By: #### [facility] ####[facility] [place] [facility] [address] [place], [place] [address]. Britt Mendoza XR CHEST 2 Von 10-01-2021 [...] by: FLEX JACOBS Date: 2021-10-01 09:[address] [facility] Ambulatory Clinical Summaryo n 03-05-2021 Ambulatory Clinical Summary {[id number]}CD:[id number] Normal [facility] Historical Records Officeon 03-05-2021 Historical Records Office [id number]:127 Normal [facility] Patient Educationon 03-05-20 Patient Education Urology Erectile Dysfunction Erectile dysfunction [...] these instructions at home: Medicines ? Take ocpa-idt-vxutskg and prescription medicines only as told by [...] of your (more content not included)... Normal [facility] Urology Office/Clinic Noteon 03-05-2021 Urology Office/Clinic Note Chief Complaint OV for ED HPI Staff Pt is here for ED sx. Pt was last seen by BRITTANEY in 2018. S/P Urolift 09/14/2018, S/P Cysto 07/2018. Pt [...] order. Ordered: Office Visit Level 4 Est 27388 2. Hypogonadism male (E29.1: Testicular hypofunction) noted [...] time. Ordered: Office Visit Level 4 Est 15160 3. BPH with urinary obstruction (N40.1: Benign prostatic hyperplasia with lower urinary tract symptoms) s/p Urolift September 2018. Pt is currently taking no bladder/prostate medication and is mostly satisfied with overall symptom control. has nocturia but attributes this to diuretics. Pt prefers to continue with no changes at this time. PCP checking PSAs per pt. Ordered: Office Visit Level 4 Est 09907 Orders: Urnls Dip Stick Auto w/o Microscopy POC 55147 offered f/u 1 yr but pt prefers PRN. Total time spent reviewing previous notes/results/externa l documents, preparing the chart, conducting the encounter with the patient and family, ordering tests/medications, and documenting the encounter was 30 minutes. Follow-up With When Contact Information SIMONE JEAN BAPTISTE DC [address] [place] [address]- Additional Instructions: Patient Education Erectile [...] inhalation powde (more content not included)... Normal [facility] Comment on above: Result Comment: Elec tronically Signed By: TOMEKA SANCHEZ PA-C\.br\Date and Time Signed: 03/05/21 12:24 EDT MRI PELVIS WO CONTRASTon MRI PELVIS WO CONTRAST [facility] Department of Radiology [address] [place] [address] Patient Name: LILIANA MICHAELS : 1965 Sex: M Age: Race: White Pt. Location: 18 Patient Status: Ordered Date: 09/10/2020 3:35:00 PM Completed Date: 10/03/2020 08:34 AM Requesting Provider: SIMONE RUIZ Attending Provider: Report Copy To: Signs & Symptoms: R10.2 Pelvic and perineal pain I10 History: [place], Right FOREIGN per clinic will fax SS [place] auth# [id number] 09/16/20-10/17/20 cpt code 46195 *mla Comments: Right groin to r/o an [...] spine. Electronically signed: Dinh Haskins. Transcribed by: [email or web address], User Resident: Electronically Signed by: DINH HASKINS @ 10/03/2020 09:57 AM Normal [facility] Comment on above: Order Comment: Right groin to r/o an adductor tear; iliopsoas bursitis or injury Operative Reporton Operative Report MR#: [id number] [facility] Pt. Name: Liliana Michaels Room [...] Ruiz MD Date Trans: 09/10/2020 11:40 P/mmo DN_JN:[id number] cc: Ishmael Simon M.D. [address] [facility] [place] [address] [address] [facility] Coding Summary.on 09-01-2020 Coding Summary. CD:[id number] G h0bWw+PGhlYWQ+MJ0BVUU rT42dlOVmqZ2RE0bLUB5U RNHCCRNSGQ7UTB1jlPR6Z FyoA7ObbuVl GepweQUoAZ20JLm8AOL4f QiuCJyooA7vvRCyU8q6Wt FgKD07sV46VKopRWUxPmM 3LjZpbjsgbWFy G5vxUiCqyBBgLit+PHRhY mxlIHdpZHRoPScxMDAlJy YqwGugCP6dXy9iQGFyWRE vbGxhcHNlOiBj t2tvYJMjEUxqKN5vwYtlV 0IjyNX4HCKcu4c8Xl80aZ I+AFAfGUS1iAhyJDmev44 0GaGxj8sfBTV5 mSTcRMmeYQY9W11ay7J1R KAiPHZxYMS0vIV8jP7ifA orliymO9YqfETqQkZ8MXC 6oYIpiK7adDba zwldkH8lMah+V15IRJ1KF OIFOR3LMrl5N5KbMrqosM I+YR44JQYyMH36vHCurKA kp6csnIr0FzHm XFAwEWD3xIsbXRoyt0WeQ QHuD32saBCzh3S3DOWyoE xkiUImLkTzxLH0kA9oSAp yxldvn9skxukf Zqmqk1dgjy97zZ05D03zW YzdLMXyLVW3FVRiMONdtS urud1saD9gGt4+NMdir7a tz5lzuRi7GpHq UQPmhzQwgFlkFYI6f5UoS d08W4EszOyio0AiDgy7sg 72aBJna0S8mRG9PPayGQM rpJ2qIZiiLlK5 JMGcXyDifO76sBEzSKxaG m0bvWienVxsNJ7nDYPpli acXWVswM2sLNEasUUytEa xOR4qFCUokife j970EhKeUQK2ANMnaZJbP 7FhjU1tZhMiAMUnKIPeQ1 YlgCUtVQjxB541PCmaBaH 6AKKsnqIhP1Kx KTJmaHjoLcC7m7K1Dl9Oj 2GbmwpfXVD3MXncWMS7Jb B8JvQxEeQ2J2DsVrx6WVK mqLqaMO8dU6Nz GKDhwoaipxovsYS2YPPbL XNtpN60yEMeXFmbQw2ap8 Y9i621DNNeVXLxfO66Bi6 udDogMTBwdCBU nD7fitnur2ezlcgjLbStT UBcHXk7BVq5HKIitOpeMo XuOKW9KpP0JDM6mSLniP6 gbLukvwdtbA7o Oyc+X62ciW6eJYT9TVY0k rrpGSDblmAsHT53TA64W7 RyPjwvdGFibGU+PGRpdiB klRbyBF0qOkWw k0esl9IrZFqgG6YmVQStF BcfZkc8YUOlOWY3sKP7oV 8cVVOvKJhyo5R5sNK8J9G qaxZnmj6oi7ij VUUgJCeeT59vmFXxj3F8N EAucDO9LKFrkKhwPrWpoD 93Oyc+TMXdsAhbl6CgThu as3sma6rcuMf8 LaEzWVRcrmGrwEjwDEV4u 6EfXv77W68bIWhxXTWeZW EsNCCbAZQbbAzpld3uxL6 wIi8+PGNvbCB3 cAX7kE0wOFCaFeM3AIagM 525JpRqeQIqUkpqn0ava3 dvxVi8PoTvFCQyewInuIu dNKR3b6VuLf07 T64rPJuwXIYdNKKzLKQcO DJdoHiapo9zpV3dGm3+PC 2ci5nnoh58lN04wQH+PHR rGSA5tUghCFyb MCOapP7wTEkgWtK0RVWmT cBmxD93kDWrNTyuRv9xxR poqOfzLP5sZWSnlgrdz47 6SkXbq7yyVOFy wSWjRQppMDW3N13qz9P2N PYiXHHsHBS3jEE7aN1xqG lnbjogbGVmdDsgdmVydGl sFFalBVamH755 IHRvcDsnPlBhdGllbnQgT mZzLQs0K3GiLrz5JOPufU noWN4piNPtJPotVv8lwNe fpMzpTP8kVYZn zkltj116NtTdv0qlCZCkp ENbNItmNIU6D83pk1N5NF BiVIQzYCV7uBX1dK6qoEr nbjogbGVmdDsg dyPdbTykWZrgEAgbZ108R HRvcDsnPkJpcnRoIERhdG T6MC49ML78fUNop8R4oMH 4R9UlOKWxpvhb frhmuIU1FEPySTSriZ03F i1kiBvbKx2aOWCsSZG6DD IilIGkZ7UstI7yLtXoWCF iDQRjH2FatRKh AZqfL171EYrdGjQ3TUOfm vHuF9ObGOVxdNfbPsU0h7 O2Nk8GR9E1NR44AE15xIR kt6K9dFK4X6Sz QOAdvfrnnorzmKT1QCBqR AKykF19Cj9hbMywWj3dWW VmVHT1RIPbdTZtC6JdyF1 yOiAjMDAwMDAw T1AjnRNgOHulG577SGhyJ eW4NSYpumMyP5RsTNCcpQ dgAjJ6c7C1Ef8LFYm9MY2 4JF01aQTjn5R3 tKE0D9SxIVXncygfksxhm PG3WMHtDTJjhS33Gk2wuW ioLk8eGSHjWTH6BJFxqLP cS4IvvK2bYzSr NQCeUTDiP4YmoGUdVIwuG 252JBfnOgG0NEYyfnSzH8 VtFJYxoJtoBtI4c2G3Eo3 TTSShRM20NSI5 qVJ7SI24DZ35E9RgJpveo GFibGU+PHRhYmxlIHdpZH RoPScxMDAlJyBzdHlsZT0 jGc5dCYOwWNBy dOpbaACdWdTwo4luXFAtZ NyuDQ5gaKivP5EmfEE3WO Dvj5s5Mv53Z50fK4DouLO +FNPhuDI8cZD2 kH0xNnNtYcU4WVovA312D pTptPCsElcio8vei0fbzT h7OiM6JJOtpeNioWopLYJ 0z4GyUm11K80l IHdpZHRoPSIxNSUiIHZhb Snxwz2woR9lRt2+PGNvbC H6xKW2fJ7cZkYpBlU3WHj gT642IoMkeAMi Urcnv4mwz8elmSb6CtYcN TXmoeNitMaoEID4d9TuHi 92P6HbcZbof5EhJsb9wi3 5oZQhb8Z9fGX5 I2JnOIFdboeieZBrhYkqS O7dHJKvzbpuEGGlcP7pOY YoK6a5RkLdLwV4VWniN6U pclY6SWLvaKLp WSfoOFS1O53em8X3UDKuX KDlFKE9fDH3nH7rgWdbgi ogbGVmdDsgdmVydGljYWw mCAinU525JCIz pSnzUKKbbV1zRPNwgFEue PnuJO3hGRRzwqzmSryMAI 5FUiwgUkFMUEggRTwvdGQ +FTXpEDW3cYvh NBdkHNAmkY9zMRGfR5l5Q wXkWbY4JJkbP9YwCZJhme woTt73wL4qSvSyJwB5GNt lT6VcxfP7UKMt fCHqBMirJKY8C33dp6Y0O BItHAEnUFB9yIE8sG8inK lnbjogbGVmdDsgdmVydGl kTWetDMgnQ878 OVEbkJrhEmAaPuY6AsC9U vK4T3HwMwx5BUVpoTtiOM 5adSPsIOtgFp8ehMmooCl nOR8xIRGcxavs PNYfvS3qXUNxoLIquNjqQ F6zQINhegwle800HuYhKG A9XVTghCGnY3DdgJ1eQvH gZGUzUKLzM0Yp yDObCHeqX193ANntBmS9W QRoraUzW2PbJRYsyEclZl Q9b7N9Yz14SlRTYAYkcnn vdGQ+PHRkIHN0 sNcnOFthQIWkoD5eKGLgQ 4c8ZxPjUmK8CBvzP6RqZC TxyhnvZb29aA9xIkYlYtZ 8GMavT0SnitO2 ULSlcLKvEQxqGSG6I54zm 4O1IJYvCNIwWDP4qYR5bK 1hbGlnbjogbGVmdDsgdmV ydGljYWwtYWxp B178DDVlkNmvOz1uwKX2O 6RoErh1XRPopVheIE3pzR WeTQxpJp5unAimlFggSW7 wNTBpbjtwYWRk dT9tCAKduDBnxCxmWU3rM DRdcvasb945GfRmMCB1KL BdkTVmF6JhdD0hBcUpMCK iVTYhA4QrsWNf ZIthR475CVhcDrQ7YKSwm aOmI9EgKXYwmZqbArB9i8 A5Vm8BtLShV9EhP8a5P9A kPjwvdHI+PC90 GRKaQU79lDAufBIgf2ukm Uv1UgFwXIFhACK1bMpeQO den5EwDOXtD95djMAqu4C 6IGNvbGxhcHNl IsWpeQJ8nR2gAOvkxjrax 0xhwlixImkzw2cfeb05mJ 83L22fUOlnFKRoUTZsBWZ tUJHijPqwqw9i wY7uWe3+FWOoyMU4aHE1h D6wUmNlUaL8WCgbK687Ve BpdBMpPmrno7kvo0byaRu 9IjIwJSIgdmFs hCsqBVB5k7DlWg26D40pR HdpZHRoPSIyMCUiIHZhbG dspl4gtV0qQl9+MR0cf2b xmq10sT86sZU+ WHCaPFP6gZjlNWvoHMAhi I4xGFouSrW0HPIgLcQhfV 00uHGrGTsjNp5adVcfoEc sPQ0aYEHiiiam r931GqLig9kpCTGayNUrP LqbMXO4T45ei0W9DJNhVJ RmBCO3mLP9oW3zxFnzghh gbGVmdDsgdmVy bEtrBZtfIHliD711QHMiv UukSyPitGVoD9fhraISVI 1lOjwvdGQ+OCYlSDE6bYd aWJmjCYQteZ7h NQJpG4k3RmLnDcA2YDwaJ 2YdhlL6SKNweOOiJQXfiJ LUcO3rzzxsp9vvttjfBeV gHFAyQWo7YSh4 DDApuRbmQfAxMZY2MwL5U XF8kVKafC5hlIzqvewahX 9wOyc+RklOOjwvdGQ+PHR vHYL1eGszILqa FPGsfW2jLIFfP1o6LcWkQ hT0ELhvH8EmtjH4GRMxfP GzZMQnkXMEfU2eiuald5f vcjogIzAwMDAw VQh2YOr8VNUldFuaCxTuC PL9AiI1NDT9wIIjhF2rwT jzpiteyA5vBoa+TVJOOjw vdGQ+PHRkIHN0 hCduCFcvXHOsjR4hTGTeN 5l2FqBkGzD5YMjeS0Xopz M8WYRgoRWnUBPjyKCMbD4 yfiyye0xnxybo CqGbITHhHAn8GBt0YDWgj PojRrFiRZV4GyQ5EQI9dS NxeS4gyAuretwfrX8fZgh +DGX5OXL9ZL44 HS21C4CoAzoloUBggVB+P HRhYmxlIHdpZHRoPScxMD IpTePtyYbpPH2tRr0aZYM yLWNvbGxhcHNl OiBj (more content not included)... Normal [facility] Auto Diffon 08-24-2020 Basophils/100 WBC (Bld) 1.0 % Normal 0.0-2.0 [facility] Comment on above: Order Comment: Order Added by Crystal Expert. Performed By: #### 1 [id number], 5839916, 3225532, 67422749, 3664333, 2239184, 73066545, 29412922 ####[facility] [address] [place] [address] Basophils/Leukocyte s Auto (Bld) [Pure # fraction] 0.1 E9/L Normal 0.0-0.2 [facility] Comment on above: Order Comment: Order Added by Crystal Expert. Performed By: #### 1 6810960, 7665103, 5080013, 47705289, 6218139, 3361323, 98645296, 60569384 ####[address] [place] [address] Eosinophils/100 WBC (Bld) 2.5 % Normal 0.0-8.0 [facility] Comment on above: Order Comment: Order Added by Discern Expert. Performed By: #### 1 4992173, 5378532, 8053896, 25321500, 7730017, 3995513, 52706088, 11654058 ####[address] [address] Eosinophils/Leukocy tobi Auto (Bld) [Pure # fraction] 0.3 E9/L Normal 0.0-0.5 [facility] Comment on above: Order Comment: Order Added by Discern Expert. Performed By: #### 1 0564942, 4829019, 2824327, 12159096, 7676392, 6318826, 49928172, 51119544 ####[address] [address] Lymphocytes/100 WBC (Bld) 21.0 % Normal 14.0-50.0 [facility] Comment on above: Order Comment: Order Added by Discern Expert. Performed By: #### 1 2367261, 2295862, 0831953, 25107685, 1112997, 4428700, 04985634, 52166889 ####[address] [address] Lymphocytes/Leukocy tobi Auto (Bld) [Pure # fraction] 2.1 E9/L Normal 1.0-4.0 [facility] Comment on above: Order Comment: Order Added by Discern Expert. Performed By: #### 1 4665945, 3766171, 4444340, 60701048, 1227229, 9782455, 96632529, 69956142 ####[address] [address] Monocytes/100 WBC (Bld) 6.2 % Normal 4.0-14.0 [facility] Comment on above: Order Comment: Order Added by Discern Expert. Performed By: #### 1 3831477, 7104881, 8940647, 95841694, 9553985, 8614865, 76868194, 90401512 ####[address] [place] [address] Monocytes/Leukocyte s Auto (Bld) [Pure # fraction] 0.6 E9/L Normal 0.2-1.0 [facility] Comment on above: Order Comment: Order Added by Discern Expert. Performed By: #### 1 0865753, 6381036, 9882083, 54267112, 1737121, 9175083, 83068972, 78119179 ####[address] [place] [address] Neutrophils/100 WBC (Bld) 69.3 % Normal 36.0-75.0 [facility] Comment on above: Order Comment: Order Added by Discern Expert. Performed By: #### 1 3941300, 5417936, 8959591, 94924381, 2637502, 7860294, 42843606, 96215436 ####[address] [place] [address] Neutrophils/Leukocy tobi Auto (Bld) [Pure # fraction] 6.9 E9/L Normal 2.0-7.5 [facility] Comment on above: Order Comment: Order Added by Discern Expert. Performed By: #### 1 5665671, 3004303, 8875748, 15230066, 4273793, 5378795, 35112332, 46270609 ####[facility] [address] [place] [address] BMPon 08-24-2020 Creatinine [Mass/Vol] 1.1 mg/dL Normal 0.5-1.3 [facility] Comment on above: Performed By: #### 1 5399191, 3606647, 0093662, 34059236, 7103404, 8432077, 33961949, 50190952 ####[facility] [address] [place] [address] Urea nitrogen [Mass/Vol] 19 mg/dL Normal 5-21 [facility] Comment on above: Performed By: #### 1 2003886, 7920477, 5553710, 37673066, 9612043, 4366672, 97380255, 31635192 ####[facility] [address] [place] [address] Urea nitrogen/Creatinine [Mass ratio] 17 No Units Normal 10-20 [facility] Comment on above: Performed By: #### 1 4602752, 4305267, 7973750, 15773926, 2272241, 6935732, 47818454, 35564040 ####[facility] [address] [place] [address] Anion gap [Moles/Vol] 14 mmol/L Normal 6-16 [facility] Comment on above: Performed By: #### 1 [id number], 9184542, 7895089, 70261602, 7674846, 0227386, 21367415, 97906908 ####[facility] [address] [place] [address] Calcium [Mass/Vol] 9.4 mg/dL Normal 8.9-11.1 [facility] Comment on above: Performed By: #### 1 4208117, 8261369, 5208665, 43942536, 7874494, 4322382, 16966256, 25947076 ####[facility] [address] [place] [address] Chloride [Moles/Vol] 94 mmol/L Low 101-111 [facility] Comment on above: Performed By: #### 1 1766831, 4216245, 0581970, 60833286, 4559569, 3498947, 89468502, 31007426 ####[facility] [address] [place] [address] CO2 [Moles/Vol] 29 mmol/L Normal 21-31 [facility] Comment on above: Performed By: #### 1 1344830, 0195653, 4385325, 93368475, 4412178, 5527075, 30143950, 08870999 ####[facility] [address] [place] [address] Glucose [Mass/Vol] 103 mg/dL Normal 55-199 [facility] Comment on above: Result Comment: If t his glucose result represents a fasting glucose, interpretation should refer to the following reference range: 55-99 mg/dL Performed By: #### 1 6265392, 9632280, 7997572, 29162363, 8044869, 5363569, 00688476, 85264408 ####[facility] [address] [place] [address] Potassium [Moles/Vol] 4.0 mmol/L Normal 3.5-5.3 [facility] Comment on above: Performed By: #### 1 2440336, 8793915, 8811849, 19491902, 4644087, 6741333, 61129498, 50752804 ####[facility] [address] [place] [address] Sodium [Moles/Vol] 133 mmol/L Low 135-145 [facility] Comment on above: Performed By: #### 1 3800168, 9651764, 4209991, 71649501, 4833427, 9681754, 98813819, 63223526 ####[facility] [address] [place] [address] BNPon 08-24-2020 Natriuretic peptide B (Bld) [Mass/Vol] 17 pg/mL Normal 5-80 [facility] Comment on above: Performed By: #### 1 3323350, 5686899, 9877000, 96740821, 6066364, 6861461, 19926570, 36839958 ####[facility] [address] [place] [address] CBC w/ Auto Diffon Erythrocyte distribution width (RBC) [Ratio] 12.9 % Normal 10.9-14.2 [facility] Comment on above: Performed By: #### 1 5372880, 8086729, 3840951, 71695470, 5480054, 2066947, 94657383, 29467415 ####[facility] [address] [place] [id number] Hematocrit (Bld) [Volume fraction] 44.4 % Normal 37.7-49.0 [facility] Comment on above: Performed By: #### 1 0489054, 9660663, 3812188, 98205454, 7795015, 3084257, 20001815, 94972339 ####[facility] [address] [place] [id number] Hemoglobin (Bld) [Mass/Vol] 15.3 g/dL Normal 13.5-17.5 [facility] Comment on above: Performed By: #### 1 4687135, 4973428, 1391702, 95169181, 7055392, 4428122, 18439637, 21178236 ####[place] [address] [place] [address] MCH (RBC) [Entitic mass] 31.5 pg Normal 27.0-34.0 [facility] Comment on above: Performed By: #### 1 0085800, 1943745, 7764655, 88025718, 9701224, 3174402, 87903109, 83754036 ####[facility] [address] [place] [address] MCHC (RBC) [Mass/Vol] 34.4 g/dL Normal 31.4-36.0 [facility] Comment on above: Performed By: #### 1 8291610, 7056626, 9903935, 76681513, 5774072, 3327437, 57547977, 47969579 ####[facility] [address] [place] [address] MCV (RBC) [Entitic vol] 91.6 fL Normal 80.0-100.0 [facility] [facility] Comment on above: Performed By: #### 1 [id number], 5670031, 2987661, 32276462, 1512512, 1112834, 73846687, 53476656 ####[address] [place] [address] Platelet mean volume (Bld) [Entitic vol] 8.4 fL Normal 6.4-10.8 [facility] Comment on above: Performed By: #### 1 1465206, 7002976, 3390748, 91901712, 9578249, 3254387, 10564641, 11202411 ####[facility] [address] [place] [address] Platelets (Bld) [#/Vol] 289.0 E9/L Normal 150.0-500.0 [facility] Comment on above: Performed By: #### 1 6386685, 4443729, 9340109, 37285942, 2306243, 8310622, 78185024, 46076793 ####[facility] [address] [place] [address] RBC (Bld) [#/Vol] 4.8 E12/L Normal 4.3-5.9 [facility] Comment on above: Performed By: #### 1 7308352, 0110352, 6834310, 89980294, 1345607, 4888967, 78153188, 87675557 ####[facility] [address] [place] [address] WBC corrected for nucl RBC Auto (Bld) [#/Vol] 9.9 E9/L Normal 4.0-11.0 [facility] Comment on above: Performed By: #### 1 1256509, 0774151, 7722268, 61956830, 7644431, 9182943, 74913539, 34778737 ####[address] [place] [address] CTA Cheston 08-24-2020 CTA Chest Exam Date/Time: [...] 370 Contrast amount in ml's: 78 Normal [facility] Consent for Treatmenton 08-07 Consent for Treatment [id number] .00CD:127 Normal [facility] D-Dimeron 08-24-2020 Fibrin D-dimer FEU (PPP) [Mass/Vol] 845 ng/mL Abnormal 215-500 [facility] Comment on above: Result Comment: [...] infections Liver cirrhosis Performed By: #### 1 5327084, 0961147, 4424787, 96855105, 8156385, 3708632, 32653874, 02446870 ####[facility] [address] [place] [address] Discharge Instructionson Discharge Instructions [id number] .00CD:127 Normal [facility] ED Clinical Summaryon 2020 ED Clinical Summary [address] [address] ED Clinical Summary Person Information Name: LILIANA MICHAELS Kristine/[facility] Age: 55 Years : 1965 Sex: Male Language: Burkinan PCP: SIMONE JEAN BAPTISTE DC Marital Status: Single Phone: [phone] Visit Id: Visit Reason: Rib/trunk pain-swelling; SIDE [...] 08/24/2020 03:27:58 08/24/2020 03:27:58 08/24/2020 03:27:58 ADDRESS: [address] [place] [phone] PHYS DOC NOTES: MEDICAL INFORMATION: Prescriptions Given: New Medications [id number], [address], [place] [id number], [phone] azithromycin (Zithromax TRI-AMIRA 500 mg oral tablet) [...] up: With: Address: When: SIMONE JEAN BAPTISTE [address] [place] [address] Business (1) In 1 day 08/25/2020 Comments: Patient is advised to follow-up with his primary care physician in 1 to 2 days. He is also advised to come back to the emergency department if symptoms get worse. DIAGNOSIS: 1:Rib pain on left side Normal [facility] ED Note-Physicianon 08-25-19 ED Note-Physician Basic Information Time Seen: Pia L[address], David 08/24/2020 00:12 Chief Complaint c/o left rib [...] date 08/24/20 2:30:00 EDT Rapid COVID Antigen ([facility]) Orders: albuterol-ipratropium , 3 mL, Soln-Inh, Inhalation, Once, Stop date 08/24/20 0:16:00 EDT, STAT, Start date 08/24/20 0:16:00 EDT azithromycin, 500 mg = 1 tab(s), Oral, Daily, # 3 tab(s), Refills(s) 0, Pharmacy: [id number], 163, cm, 08/24/20 0:04:00 EDT, Height/Length Dosing, 101, kg, 08/24/20 0:04:00 EDT, Weight Dosing famotidine, 20 mg = 1 tab(s), Tab, Oral, Once, Stop date 08/24/20 0:17:00 EDT, STAT, Start date 08/24/20 0:17:00 EDT lidocaine topical, 1 patch(es), Topical, Daily, 7 patch(es), Refill(s) 0, apply 12 hours on and 12 hours off daily, [id number], 163, cm, 08/24/20 0:04:00 EDT, Height/Length Dosing, 101, kg, 08/24/20 0:04:00 EDT, Julian (more content not included)... Normal [facility] Comment on above: Result Comment: [...] Document Reviewed: 11/28/2008 ExitCare? Patient Information ?2015 [place]. This information is not intended to replace advice given to you by your health care provider. Make sure you discuss any questions you have with your health care provider. Normal [facility] ED Patient Summaryon 021 ED Patient Summary [address] [address] Patient Discharge Instructions Person Information Name: BRANDOIZABELAPH Cem Age: 55 Years Arrival Date: 08/23/2020 23:48:11 Discharge Diagnosis: 1:Rib pain on left side Primary Care Physician: SIMONE JEAN BAPTISTE DC Provider Information Primary Provider: David Palacio MD Advanced Chief Clinical Officer:None The exam and treatment you received in the Emergency Department were for an urgent problem and are not intended as complete care. It is important that you follow up with a doctor, nurse practitioner, or physician?s business banking sales assistant for ongoing care. If your symptoms [...] Address: When: SIMONE JEAN BAPTISTE [address] [place], [place] [id number] Business (1) In 1 day 08/25/2020 Comments: [...] opioids can be used to help relieve epxruacb-vg-quuyzs pain and are often prescribed following a [...] be struggling (more content not included)... Normal [facility] PT & PTTon 08-24-2020 aPTT Coag (PPP) [Time] 30.2 second(s) Normal 25.1-36.5 [facility] Comment on above: Result Comment: Hepa rin therapeutic range (represented by Anti-Factor Xa activity of 0.2 - 0.4 U/mL) corresponds to PTT of 56.6 - 109.0 sec. Performed By: #### 1 [id number], 9181536, 9820256, 98773302, 8863557, 0743334, 82825315, 86077335 ####[facility] [address] [place] [address] INR Coag (PPP) [Relative time] 1.0 {INR} Invalid Interpretation Code [facility] Comment on above: Result Comment: INR results are specifically intended to assess patients stabilized on long-term Anticoagulation therapy suggested INR?s ?Less Intensive Anticoagulation? 2.0 ? 3.0 Conventional Range 3.0 ? 4.5 Performed By: #### 1 3593794, 0926305, 1268367, 47711802, 7965525, 2196356, 33033953, 66664660 ####[facility] [address] [place] [address] PT Coag (PPP) [Time] 11.6 second(s) Normal 10.2-12.9 [facility] Comment on above: Performed By: #### 1 7635172, 4521882, 9666156, 57889857, 8422898, 1460156, 77725390, 14510822 ####[facility] [address] [place] [address] RAD - Preliminary Cat Scan R eporton 08-24-2020 RAD - Preliminary Cat Scan Report [id number] .00CD:127 Normal [facility] Rapid COVID Antigen ([facility])on 08-24-2020 Rapid COV Int NEG Ctl Pass Normal [facility] Comment on above: Performed By: #### 2 [id number] ####[facility] [address] [place] [address] Rapid COV Int POS Ctl Pass Normal [facility] Comment on above: Performed By: #### 2 [id number] ####[address] [address] SARS-CoV-2 (COVID-19) RNA KATT+probe Ql (Unsp spec) Not detected Normal Not Detected [facility] Comment on above: Result Comment: The [employer]? System for Rapid Detection of SARS-CoV-2 is [...] or revoked sooner. Performed By: #### 2 [id number] ####[address] [address] Employed in Healthcare NO [facility] Comment on above: Performed By: #### 2 [id number] ####[address] [place] [address] [facility] Comment on above: Performed By: #### 2 [id number] ####[address] [place] [address] Hospitalized? NO Normal [facility] Comment on above: Performed By: #### 2 [id number] ####[address] [place] [address] [facility] Comment on above: Performed By: #### 2 [id number] ####[address] [place] [address] ? [address] [facility] Comment on above: Performed By: #### 2 [id number] ####[address] [place] [address] Resides in a Congregate Care Setting NO [facility] Comment on above: Performed By: #### 2 [id number] ####[facility] [address] [place] [address] Symptomatic as defined by [facility] YES Normal [facility] Comment on above: Performed By: #### 2 [id number] ####[facility] [address] [place] [address] Troponin 0 Hr.on 08-24-2020 Troponin I.cardiac [Mass/Vol] 4.10 pg/mL Low 15.90-38.40 [facility] Comment on above: Result Comment: The 95% CI (Confidence Interval) PPV (Positive Predictive Value) for myocardial infarction in females is 38 pg/mL, in males 51 pg/mL. The results should be used in conjunction with clinical conditions of myocardial infarction. ([employer] High Sensitivity Troponin I Instructions For Use, [employer], December 2017) Performed By: #### 1 6638625, 3759772, 1336161, 08926535, 0236495, 6198931, 40821293, 01753396 ####[address] [place] [address] Troponin 3 Hr.on 08-24-2020 Troponin I.cardiac [Mass/Vol] 4.40 pg/mL Low 15.90-38.40 [facility] Comment on above: Result Comment: The 95% CI (Confidence Interval) PPV (Positive Predictive Value) for myocardial infarction in females is 38 pg/mL, in males 51 pg/mL. The results should be used in conjunction with clinical conditions of myocardial infarction. ([employer] High Sensitivity Troponin I Instructions For Use, [employer], December 2017) Performed By: #### 1 [id number] ####[facility] [address] [place] [address] XR Chest Single Viewon 08-24 XR Chest [...] V. Transcribed by: VIVIAN Technologist: DAT Perry [facility] eGFRon 08-24-2020 GFR/1.73 sq M.predicted among blacks MDRD (S/P/Bld) [Vol rate/Area] mL/min/{1.73_m2} Normal >=59 [facility] Comment on above: Order Comment: Order added by Discern Expert. Result Comment: eGFR is race adjusted. AA=. Performed By: #### 1 7606452, 1264468, 5865824, 81038186, 7641745, 9974595, 36827367, 77194719 ####[facility] [address] [place] [address] GFR/1.73 sq M.predicted among non-blacks MDRD (S/P/Bld) [Vol rate/Area] mL/min/{1.73_m2} Normal >=59 [facility] Comment on above: Order Comment: Order added by Discern Expert. Result Comment: Black Oxide Operator jeniffer kidney disease could be indicated at eGFR's of less than 60 mL/min/1.73m2. Kidney failure is indicated at less than 15 mL/min/1.73m2. Performed By: #### 1 7401372, 4938389, 1011026, 61557838, 8573507, 4857429, 33210687, 88319883 ####[facility] [place] [address] HIP RIGHT 1 OR 2 VWS WITH PE LVISon 07-24-2020 HIP RIGHT 1 OR 2 VWS WITH PELVIS [facility] Department of Radiology [address] [place] [address] Patient Name: LILIANA MICHAELS : 1965 Sex: M Age: Race: White Pt. Location: 84 Patient Status: Ordered Date: 07/24/2020 9:30:00 AM [...] Electronically signed: Ana M Ponce. Transcribed by: [email or web address], User Resident: Electronically Signed by: ANA M PONCE @ 07/24/2020 10:01 AM Normal [facility] Comment on above: Order Comment: Views (X-RAY, HIP): Radiologic Protocol HIP RIGHT 1 OR 2 VWS WITH PE LVISon 04-24-2020 HIP RIGHT 1 OR 2 VWS WITH PELVIS [facility] Department of Radiology [address] [place] [id number] Patient Name: LILIANA MICHAELS : 1965 Sex: M Age: Race: White Pt. Location: Patient Status: D Ordered Date: 04/24/2020 10:40:00 AM Completed Date: 04/24/2020 10:48 AM Requesting Provider: JEY ELISE Attending Provider: Report Copy To: Signs & Symptoms: Z96.641 Presence of right artificial hip joint I10 History: Lenore Comments: Views (X-RAY, HIP): Radiologic Protocol Exam: HIP RIGHT 1 OR 2 VWS WITH PELVIS HIP RIGHT 1 OR 2 VWS WITH PELVIS HISTORY: Hip replacement, follow-up. COMPARISON: 03/14/2020. IMPRESSION: 1. Redemonstrated hip prosthesis, no hardware complication or acute abnormality. Electronically signed: Ed España. Transcribed by: [email or web address], User Resident: Electronically Signed by: ED ESPAÑA @ 04/25/2020 08:22 AM Normal [facility] Comment on above: Order Comment: Views (X-RAY, HIP): Radiologic Protocol Operative Reporton 0 Operative Report MR#: [id number] [facility] Pt. Name: Liliana Michaels Room #: 6AB [id number] Discharge 03/15/2020 Date: Birthdate: 1965 OPERATIVE REPORT [...] a (more content not included)... Normal [facility] BASIC METABOLIC PANELon 11-0 Calcium [Mass/Vol] 8.8 mg/dL Normal 8.6-10.3 [facility] Comment on above: Order Comment: Views (X-RAY, HIP): Radiologic Protocol Performed By: #### 0 0071 ####[facility] [place] [id number], [facility] Chloride [Moles/Vol] 98 mmol/L Normal 98-107 [facility] Comment on above: Order Comment: Views (X-RAY, HIP): Radiologic Protocol Performed By: #### 0 0071 ####[facility] [place] [address], [facility] CO2 [Moles/Vol] 30 mmol/L Normal 21-31 [facility] Comment on above: Order Comment: Views (X-RAY, HIP): Radiologic Protocol Performed By: #### 0 0071 ####[place] [address], [facility] Creatinine [Mass/Vol] 0.96 mg/dL Normal 0.70-1.30 [facility] Comment on above: Order Comment: Views (X-RAY, HIP): Radiologic Protocol Performed By: #### 0 0071 ####[place] [address], [facility] GFR/1.73 sq M.predicted among blacks MDRD (S/P/Bld) [Vol rate/Area] mL/min/{1.73_m2} Normal >60 [facility] Comment on above: Order Comment: Views (X-RAY, HIP): Radiologic Protocol Performed By: #### 0 0071 ####[place] [address], [facility] GFR/1.73 sq M.predicted among non-blacks MDRD (S/P/Bld) [Vol rate/Area] mL/min/{1.73_m2} Normal >60 [facility] Comment on above: Order Comment: Views (X-RAY, HIP): Radiologic Protocol Performed By: #### 0 0071 ####[address] [place] [address], [place] Glucose [Mass/Vol] 151 mg/dL High 70-[address] [facility] Comment on above: Order Comment: Views (X-RAY, HIP): Radiologic Protocol Performed By: #### 0 0071 ####[facility] [facility] [place] [address], [facility] Potassium [Moles/Vol] 4.4 mmol/L Normal 3.5-5.1 [facility] Comment on above: Order Comment: Views (X-RAY, HIP): Radiologic Protocol Performed By: #### 0 0071 ####[facility] [place] [address], [facility] Sodium [Moles/Vol] 133 mmol/L Low 136-145 [facility] Comment on above: Order Comment: Views (X-RAY, HIP): Radiologic Protocol Performed By: #### 0 0071 ####[facility] [facility] [place] [address], [facility] Urea nitrogen [Mass/Vol] 20 mg/dL Normal 7-25 [facility] Comment on above: Order Comment: Views (X-RAY, HIP): Radiologic Protocol Performed By: #### 0 0071 ####[facility] [place] [address], [facility] CBC COMPLETE BLOOD COUNTon 05-15-2019 Erythrocyte distribution width (RBC) [Ratio] 12.2 % Normal 11.5-15.0 [facility] Comment on above: Order Comment: No: D o not add to previous draw Performed By: #### 5 0608 #### [facility] [address] [place] [address], [facility] Hematocrit (Bld) [Volume fraction] 42.2 % Normal 39.0-50.0 [facility] Comment on above: Order Comment: No: D o not add to previous draw Performed By: #### 5 0608 #### [facility] [address] [place] [address], [facility] Hemoglobin (Bld) [Mass/Vol] 13.9 g/dL Normal 13.0-17.0 [facility] Comment on above: Order Comment: No: D o not add to previous draw Performed By: #### 5 0608 #### [facility] [address] [place] [address], [facility] MCH (RBC) [Entitic mass] 31.4 pg Normal 27.0-33.0 [facility] Comment on above: Order Comment: No: D o not add to previous draw Performed By: #### 5 0608 #### [facility] [address] [place] [id number], [facility] MCHC (RBC) [Mass/Vol] 32.9 g/dL Normal 32.0-35.0 [facility] Comment on above: Order Comment: No: D o not add to previous draw Performed By: #### 5 0608 #### [facility] [address] [place] [address], [facility] MCV (RBC) [Entitic vol] 95.5 fL Normal 82.0-98.0 [facility] Comment on above: Order Comment: No: D o not add to previous draw Performed By: #### 5 0608 #### [facility] [address] [place] [address], [facility] Nucleated RBC/100 WBC (Bld) [Ratio] 0 % Normal 0-0 [facility] Comment on above: Order Comment: No: D o not add to previous draw Performed By: #### 5 0608 #### [facility] [address] [place] [address], [facility] PLAT CNT 254 10*3/uL Normal 150-400 The [facility] Comment on above: Order Comment: No: D o not add to previous draw Performed By: #### 5 0608 #### [facility] [address] [place] [address], [facility] RBC (Bld) [#/Vol] 4.42 10*6/uL Normal 4.20-5.70 [facility] Comment on above: Order Comment: No: D o not add to previous draw Performed By: #### 5 0608 #### [facility] [address] [place] [address], [facility] WBC (Bld) [#/Vol] 14.44 10*3/uL High 4.00-10.60 [facility] Comment on above: Order Comment: No: D o not add to previous draw Performed By: #### 5 0608 #### [facility] [address] POC GLUCOSE LABon 03-15-2020 Glucose [Mass/Vol] 193 mg/dL High 70-[address] [facility] Comment on above: Performed By: #### 8 5499 #### [facility] [address] CBC W/DIFFon 03-14-2020 ABS IMM GRANS 0.2 10*3/uL Normal 0.0-0.2 The [facility] Comment on above: Performed By: #### 5 0103 ####[facility] ABS NEUTROPHILS 8.0 10*3/uL High 1.6-7.6 [facility] Comment on above: Performed By: #### 5 0103 ####[facility] [place] [address], [facility] Basophils (Bld) [#/Vol] 0.1 10*3/uL Normal 0.0-0.2 [facility] Comment on above: Performed By: #### 5 0103 ####[facility] [place] [address], [facility] Basophils/100 WBC (Bld) 1.1 % High 0.0-1.0 [facility] Comment on above: Performed By: #### 5 0103 ####[facility] Eosinophils (Bld) [#/Vol] 0.3 10*3/uL Normal 0.0-0.5 [facility] Comment on above: Performed By: #### 5 0103 ####[address] [address] Eosinophils/100 WBC (Bld) 2.7 % Normal 0.0-6.0 [facility] Comment on above: Performed By: #### 3 ####[facility] Erythrocyte distribution width (RBC) [Ratio] 12.3 % Normal 11.5-15.0 [facility] Comment on above: Performed By: #### 102 ####[address] Hematocrit (Bld) [Volume fraction] 50.5 % High 39.0-50.0 [facility] Comment on above: Performed By: #### 3 ####[place] [address] Hemoglobin (Bld) [Mass/Vol] 17.3 g/dL High 13.0-17.0 [facility] Comment on above: Performed By: #### 5 3 ####[facility] IMMATURE GRANS 1.4 % High 0.0-1.0 [facility] Comment on above: Performed By: #### 5 3 ####[address] Lymphocytes (Bld) [#/Vol] 1.8 10*3/uL Normal 1.2-4.0 [facility] Comment on above: Performed By: #### 5 3 ####[address] [place] [address], [place] Lymphocytes/100 WBC (Bld) 15.6 % Low 20.0-45.0 [facility] Comment on above: Performed By: #### 5 0103 ####[facility] [place] [address] MCH (RBC) [Entitic mass] 31.7 pg Normal 27.0-33.0 [facility] Comment on above: Performed By: #### 3 ####[address] MCHC (RBC) [Mass/Vol] 34.3 g/dL Normal 32.0-35.0 [facility] Comment on above: Performed By: #### 3 ####[address] MCV (RBC) [Entitic vol] 92.7 fL Normal 82.0-98.0 [facility] Comment on above: Performed By: #### 5 3 ####[address] Monocytes (Bld) [#/Vol] 0.9 10*3/uL Normal 0.1-1.0 [facility] Comment on above: Performed By: #### 5 3 ####[address] MONOS 8.2 % Normal 5.0-12.0 [facility] Comment on above: Performed By: #### 5 3 ####[address] Neutrophils/100 WBC (Bld) 71.0 % Normal 40.0-72.0 [facility] Comment on above: Performed By: #### 5 3 ####[address] [place] [address], [facility] Nucleated RBC/100 WBC (Bld) [Ratio] 0 % Normal 0-0 [facility] Comment on above: Performed By: #### 5 0103 ####[facility] [place] [address], [facility] PLAT CNT 301 10*3/uL Normal 150-400 The [facility] Comment on above: Performed By: #### 5 0103 ####[facility] [place] [address], [facility] RBC (Bld) [#/Vol] 5.45 10*6/uL Normal 4.20-5.70 [facility] Comment on above: Performed By: #### 5 0103 ####[facility] [place] [address], [facility] WBC (Bld) [#/Vol] 11.22 10*3/uL High 4.00-10.60 [facility] Comment on above: Performed By: #### 5 0103 ####[address] [place] [address], [facility] HIP RIGHT 1 OR 2 VWS WITH PE LVISon 03-14-2020 HIP RIGHT 1 OR 2 VWS WITH PELVIS [facility] Department of Radiology [address] [place] [phone] Patient Name: LILIANA MICHAELS : 1965 [...] purposes Electronically signed: Aria Baig. Transcribed by: [email or web address], User Resident: Electronically Signed by: ARIA BAIG @ 03/14/2020 03:44 PM Normal [facility] Comment on above: Order Comment: RT TH A POC GLUCOSE LABon 03-14-2020 Glucose [Mass/Vol] 222 mg/dL High 70-100 [facility] Comment on above: Performed By: #### 8 5499 #### [facility] [address] [place] [address], [place] Glucose [Mass/Vol] 217 mg/dL High 70-100 [facility] Comment on above: Performed By: #### 8 5499 ####[facility] [place] [address], [place] Glucose [Mass/Vol] 141 mg/dL High 70-100 [facility] Comment on above: Performed By: #### 8 5499 #### [facility] [address] [place] [address], [place] PORTABLE HIP RIGHT 1 OR 2 VW S WITH PELVISon 03-14-2020 PORTABLE HIP RIGHT 1 OR 2 VWS WITH PELVIS [facility] Department of Radiology [address] [place] [id number] Patient Name: LILIANA MICHAELS : 1965 [...] air Electronically signed: Aria Baig. Transcribed by: [email or web address], User Resident: Electronically Signed by: ARIA BAIG @ 03/14/2020 03:46 PM Normal [facility] Comment on above: Order Comment: Hardw are Evaluation, AP/Lateral TYPE AND SCREENon 03-14-2020 ABO INTERPRETATION O Normal [facility] Comment on above: Performed By: #### 6 2586 ####[facility] [place] [address], [facility] RH INTERPRETATION Positive Normal [facility] Comment on above: Performed By: #### 6 2586 ####[facility] [place] [address], [facility] Vital Signs Date Time Vital Sign Value Performing Clinician Faci lity 07-22-2023 14:38-0400 Body height 162.6 cm Amador Son MD Work Phone: [facility] 07-22-2023 14:38-0400 Body mass index (BMI) [Ratio] 34.33 kg/m2 Amador Son MD Work Phone: [facility] 07-22-2023 14:38-0400 Body weight 90.72 kg Amador Son MD Work Phone: [facility] 07-22-2023 14:38-0400 Diastolic blood pressure 90 mm[Hg] Amador Son MD Work Phone: [facility] 07-22-2023 14:38-0400 Heart rate 41 /min Amador Son MD Work Phone: [facility] 07-22-2023 14:38-0400 Systolic blood pressure 138 mm[Hg] Amador Son MD Work Phone: [facility] 07-14-2022 10:57-0500 Body height 162.56 cm Ishmael Simon Work Phone: [facility] [employer] 600 DO Work Phone: 07-14-2022 10:57-0500 Body mass index (BMI) [Ratio] 32.96 kg/m2 Ishmael Simon Work Phone: [facility] 600 DO Work Phone: 07-14-2022 10:57-0500 Body surface area Derived from formula 1.92 m2 Ishmael A Naderer Work Phone: [facility] [employer] 600 DO Work Phone: 07-14-2022 10:57-0500 Body weight 87.09 kg Ishmael A Naderer Work Phone: [facility] [employer] 600 DO Work Phone: 07-14-2022 10:57-0500 Diastolic blood pressure 64 mm[Hg] Ishmael A Naderer Work Phone: [facility] [employer] 600 DO Work Phone: 07-14-2022 10:57-0500 Heart rate 34 /min Ishmael A Naderer Work Phone: [facility] [employer] 600 DO Work Phone: 07-14-2022 10:57-0500 Systolic blood pressure 118 mm[Hg] Ishmael A Naderer Work Phone: [facility] [employer] 600 DO Work Phone: 01-28-2022 09:37-0400 Body height 162.56 cm Ishmael A Naderer Work Phone: [facility] [employer] 600 DO Work Phone: 01-28-2022 09:37-0400 Body mass index (BMI) [Ratio] 30.9 kg/m2 Ishmael A Naderer Work Phone: [facility] [employer] 600 DO Work Phone: 01-28-2022 09:37-0400 Body surface area Derived from formula 1.87 m2 Ishmael A Naderer Work Phone: [facility] [employer] 600 DO Work Phone: 01-28-2022 09:37-0400 Body weight 81.65 kg Ishmael Rae Naderer Work Phone: [facility] 600 DO Work Phone: 01-28-2022 09:37-0400 Diastolic blood pressure 50 mm[Hg] Ishmael Rae Naderer Work Phone: [facility] 600 DO Work Phone: 01-28-2022 09:37-0400 Heart rate 41 /min Ishmael Rae Naderer Work Phone: [facility] 600 DO Work Phone: 01-28-2022 09:37-0400 Systolic blood pressure 112 mm[Hg] Ishmael Rae Naderer Work Phone: [facility] 600 DO Work Phone: Encounters Encounter Date Encounter Type Care Provider Facility Start: 07-22-2023 End: 07-22-2023 ambulatory [facility] Start: 07-22-2023 End: 07-22-2023 Encounter for preprocedural cardiovascular examination [facility] Start: 07-22-2023 End: 07-22-2023 Office outpatient new 60 minutes Amador Son MD Work Phone: [facility] Comment on above: Chronotropic incompe tence (Primary Dx); Sinus bradycardia; Establishing care with new doctor, encounter for; BMI 34.0-34.9,adult; Sick sinus syndrome (CMS/HCC); Simple chronic bronchitis (CMS/HCC); Current smoker; Other fatigue; Preoperative cardiovascular examination Start: 07-22-2023 End: 07-22-2023 Patient encounter status Amador Son MD Work Phone: [facility] Work Phone: Start: 07-13-2023 End: 07-13-2023 ambulatory [facility] Start: 07-13-2023 End: 07-13-2023 ambulatory [facility] Start: 04-13-2023 End: 04-13-2023 ambulatory ISHMAEL SIMON Not Available Start: 10-14-2022 ambulatory NARENDRANATH LAKSHMIPATHY . Facility:H1 Start: 09-14-2022 End: 09-14-2022 ambulatory NARENDRANATH LAKSHMIPATHY . Facility:[facility]1 Start: 08-31-2022 End: 09-01-2022 ambulatory NARENDRANATH LAKSHMIPATHY . Facility:[facility]1 Start: 08-04-2022 End: 08-05-2022 ambulatory NARENDRANATH LAKSHMIPATHY . Facility:[facility]1 Start: 07-23-2022 End: 08-07-2022 ambulatory NARENDRANATH LAKSHMIPATHY . Facility:[facility]1 Start: 07-20-2022 End: 07-21-2022 ambulatory NARENDRANATH LAKSHMIPATHY . Facility:[facility]1 Start: 07-15-2022 End: 07-16-2022 ambulatory AMINA CASSIDY . Facility:[facility]1 Start: 07-14-2022 Office outpatient vi sit 15 minutes Ishmael Simon Work Phone: [facility] 600 DO Work Phone: Start: 07-14-[address] Valentino Ferrer Facility:[id number] Start: 07-13-[address] RICKY IBARRA . Faci lity:H1 Start: 06-11-2022 End: 06-12-[address] ISHMAEL SIMON Facility:[facility]1 Start: 05-07-2022 End: 05-08-[address] ISHMAEL SIMON Facility:H1 Start: 05-07-2022 End: 05-08-[address] ISHMAEL SIMON Facility:H1 Start: 04-12-2022 End: 04-12-[address] ISHMAEL SIMON Facility:H1 Start: 02-16-2022 Chart Update Ishmael Simon Work Phone: [facility] 250 DO Work Phone: Start: 02-15-[address] Valentino Ferrer Facility:[id number] Start: 01-28-[address] Ishmael Simon Facility: Start: 01-28-2022 Office consultation new/estab patient 60 min Ishmael Simon Work Phone: [facility] 600 DO Work Phone: Start: 01-14-2022 End: 01-15-2022 ambulatory TERESO COLMENARES . Facility:H1 Start: 01-01-2022 End: 01-02-[address] ISHMAEL SIMON Facility:H1 Start: 12-15-2021 End: 12-15-[address] RICKY IBARRA . Facility:H1 Start: 12-14-2021 Encounter for preprocedural laboratory examination DR RICKY IBARRA . [facility] Start: 12-12-2021 [...] End: 10-13-[address] RICKY IBARRA . Facility:H1 Start: 10-01-2021 End: 10-02-2021 ambulatory TERESO COLMENARES . Facility:[facility]1 Start: 10-01-2021 End: 10-02-2021 ambulatory TERESO COLMENARES . Facility:[facility]1 Start: 10-03-2020 End: 10-04-2020 ambulatory SIMONE RUIZ Facility:[facility] Start: 03-26-2020 End: 04-10-2020 ambulatory JEY ELISE Facility:[facility] Start: 03-14-2020 End: 03-15-2020 ambulatory JEY ELISE Facility:[facility] Procedures Date Procedure Procedure Detail Performing Clinician Start: 07-22-2023 CASE REQUEST EP LAB MINDI PACO KARSON Start: 07-22-2023 AMB REFERRAL TO CARD IAC ELECTROPHYSIOLOGY VALENTINO FERRER Start: 07-22-2023 ECG 12-LEAD MOURHAF TR ABOULSSI Start: 07-22-2023 Ecg routine ecg w/le ast 12 lds w/i&r Amador Son MD Work Phone: Start: 07-13-2023 HOLTER OR EVENT CARD IAC MONITOR VALENTINO DAMONRishi Start: 07-13-2023 ECG 12-LEAD MOURHAF TR ABOULSSI Start: 05-07-[address] ISHMAEL CROUCH Comment on above: Performed By: #### V ITAD, PSASC #### [facility] [address] [address] [address] Britt Mendoza Start: 03-15-2020 ANESTH HIP ARTHROPLASTY SIMONE RUIZ Start: 03-15-2020 TOTAL HIP ARTHROPLASTY JEY ELISE Start: 03-14-2020 Antibody screen SIMONE JOSELYN BOLIVAR Comment on above: Performed By: #### 6 [id number] ####[facility] [place] [address], [facility] Colonoscopy Ishmael Carterr Work Phone: Excision of cyst Ishmael Cazares rer Work Phone: Hernia repair Ishmael Rae Nadestherr Work Phone: Operation on urinary system Ishmael Rae Naderer Work Phone: Surgical repair of u pper extremity Ishmael Rae Naderer Work Phone: Total replacement of hip Lillian Coronaerer Work Phone: Plan of Treatment Date Care Activity Detail Author Start: 11-03-2023 End: 11-03-2023 Patient encounter procedure 11/03/2023 8:50 AM EDT Office Visit [address] [place] [address] Valentino Ferrer MD [address] [facility] [address], [address] [place] [address] [facility] Start: 07-22-2023 End: 07-21-2025 Heart Transthoracic Transthoracic Echo Complete Echocardiography Routine Sinus bradycardia Chronotropic incompetence Sick sinus syndrome (CMS/HCC) Other fatigue Preoperative cardiovascular examination Expected: 07/22/2023 (Approximate), Expires: 07/21/2025 [facility] Work Phone: Comment on above: Expected: 07/22/2023 (Approximate), Expi res: 07/21/2025 Start: 07-13-2023 FUV, Provider: Valentino Ferrer, Status: Pen, Time: 8:30 AM FUV, Provider: Valentino Ferrer, Status: Pen, Time: 8:30 AM [facility] [employer] 600 DO Work Phone: Start: 01-07-2023 Influenza vaccination Influenza Vaccine (#1) [facility] Start: 07-14-2022 FUV, Provider: Valentino Ferrer, Status: Pen, Time: 10:40 AM FUV, Provider: Vaelntino Ferrer, Status: Pen, Time: 10:40 AM [facility] [employer] 600 DO Work Phone: Start: 02-15-2022 STRESS JUICE, Provider: CARLITO HHVI NUCLEAR 01,[id number], Status: Pen, Time: 2:00 PM STRESS JUICE, Provider: CARLITO HHVI NUCLEAR 01,[id number], Status: Pen, Time: 2:00 PM [facility] 600 DO Work Phone: Start: 02-21-2014 Zoster Vaccines (1 of 2) Zoster Vaccines (1 of 2) [facility] Start: 02-21-1986 DTaP/Tdap/Td Vaccines (1 - Tdap) DTaP/Tdap/Td Vaccines (1 - Tdap) [facility] Start: 02-21-1982 Diabetes mellitus screening Diabetes Screening [facility] Start: 02-21-1982 Hepatitis C screening Hepatitis C Screening [facility] Start: 02-21-1970 Pneumococcal Vaccine: Pediatrics (0 to 5 Years) and At-Risk Patients (6 to 64 Years) (1 - PCV) Pneumococcal Vaccine: Pediatrics (0 to 5 Years) and At-Risk Patients (6 to 64 Years) (1 - PCV) [facility] Start: 02-21-1965 MMR Vaccines (1 of 1 - Standard series) MMR Vaccines (1 of 1 - Standard series) [facility] Start: 1964 COVID-19 Vaccine (#1) COVID-19 Vaccine (#1) [facility] Start: 1964 Creatinine measurement Creatinine Level [facility] Start: 1964 Echocardiography Echocardiogram [facility] Start: 1964 Hepatitis B Vaccines (1 of 3 - 3-dose series) Hepatitis B Vaccines (1 of 3 - 3-dose series) [facility] Start: 1964 HIV screening HIV Screening [facility] Start: 1964 Lipid panel Lipid Panel [facility] Start: 1964 Medicare Annual Wellness Visit Medicare Annual Wellness Visit (AWV) [facility] Start: 1964 Potassium measurement Potassium Level [facility] Start: 1964 Screening for malignant neoplasm of colon [facility] End: 07-21-2024 Basic metabolic 2000 panel - Serum or Plasma Basic Metabolic Panel Lab Routine Sinus bradycardia Chronotropic incompetence Sick sinus syndrome (CMS/HCC) Other fatigue 1 Occurrences starting 07/22/2023 until 07/21/2024 [facility] Work Phone: Comment on above: 1 Occurrences starting 07/22/2023 until 07/21/2024 End: 07-21-2024 CBC panel - Blood by Automated count CBC Lab Routine Sinus bradycardia Chronotropic incompetence Sick sinus syndrome (CMS/HCC) Other fatigue 1 Occurrences starting 07/22/2023 until 07/21/2024 [facility] Work Phone: Comment on above: 1 Occurrences starting 07/22/2023 until 07/21/2024 PPM IMPLANT DC PPM IMPLANT DC S inus bradycardia Chronotropic incompetence Sick sinus syndrome (CMS/HCC) Other fatigue [facility] Work Phone: End: 07-21-2024 Prothrombin time (PT) Protime-INR Lab Routine Sinus bradycardia Chronotropic incompetence Sick sinus syndrome (CMS/HCC) Other fatigue 1 Occurrences starting 07/22/2023 until 07/21/2024 [facility] Service Area Work Phone: Comment on above: 1 Occurrences starting 07/22/2023 until 07/21/2024 Payers Date Payer Category Payer Medicare [employer] MEDICARE [employer] G[employer] CHOICE [id number] 2023-Present [address] [address] [place] [address] [id number] 2023 Medicare [id number] 1964 Unknown [id number] 2.840.1.074853.3.579.2.647 1964 Unknown [id number] 2.840.1.861606.3.579.2.647 1964 Unknown [id number] 2.840.1.182014.3.579.2.647 1964 Unknown [id number] 2.840.1.633870.3.579.2.1068 1964 Unknown [id number] 2.840.1.188756.3.579.2.356 1964 Unknown [id number] 2.840.1.351647.3.579.2.356 1964 Unknown [id number] 2.840.1.753646.3.579.2.593 1964 Unknown [id number] 2.840.1.812984.3.579.2.593 1964 Unknown [id number] 2.840.1.278697.3.579.2.593 1964 Unknown [id number] 2.16.840.1.743846.3.579.2.593 1964 Unknown [id number] 2.16.840.1.152382.3.579.2.593 1964 Unknown [id number] 2.16.840.1.832821.3.579.2.593 1964 Unknown [id number] 2.16.840.1.503160.3.579.2.593 1964 Unknown [id number] 2.16.840.1.581569.3.579.2.593 1964 Unknown [id number] 2.16.840.1.303441.3.579.2.593 1964 Unknown [id number] 2.16.840.1.048084.3.579.2.593 1964 Unknown [id number] 2.16.840.1.085514.3.579.2.593 1964 Unknown [id number] 2.16.840.1.855431.3.579.2.593 1964 Unknown [id number] 2.16.840.1.683392.3.579.2.593 1964 Unknown [id number] 2.16.840.1.230251.3.579.2.593 1964 Unknown [id number] 2.16.840.1.670593.3.579.2.593 1964 Unknown [id number] 2.16.840.1.617898.3.579.2.593 1964 Unknown [id number] 2.16.840.1.901132.3.579.2.593 1964 Unknown [id number] 2.16.840.1.166983.3.579.2.593 1964 Unknown [id number] 2.16.840.1.273275.3.579.2.593 1964 Unknown [id number] 2.16.840.1.306500.3.579.2.593 1964 Unknown [id number] 2.16.840.1.297732.3.579.2.593 1964 Unknown [id number] 2.16.840.1.842100.3.579.2.593 1964 Unknown [id number] 2.16.840.1.897094.3.579.2.593 1964 Unknown [id number] 2.16.840.1.135174.3.579.2.593 1964 Unknown [id number] 2.16.840.1.568880.3.579.2.1259 1964 Unknown [id number] 2.16.840.1.932317.3.579.2.1244 1964 Unknown [id number] 2.16.840.1.743209.3.579.2.1244 1964 Unknown [id number] 2.16.840.1.687974.3.579.2.1244 1960 Medicaid [id number] 1960 Medicare [id number] Unknown [id number] Unknown Social History Date Type Detail Facility Start: 07-13-2023 No alcohol use No alcohol use [facility] 600 DO Work Phone: Comment on above: 1 pack daily; Start: 07-13-2023 [facility] History of tobacco use Cigarette Smoker [facility] Work Phone: Start: 07-13-2023 Tobacco use and exposure Smokeless tobacco non-user [facility] Work Phone: Start: 07-22-2023 Alcohol intake Lifetime non-d marge (finding) [facility] Work Phone: Start: 07-13-2023 Tobacco use panel [facility] Work Phone: Start: 1965 Sex Assigned At Not on file [facility] Work Phone: Start: 07-12-2023 End: 07-22-2023 Exposure to SARS-CoV-2 (event) Not sure [facility] Clinical Notes 08-31-2020 to 07-22-2023 Amador Son MD - 07/22/2023 1:45 PM EDTPatient Instructions Note Date & Type Note Facility 07-22-2023 History of Present illness Narrative CARDIOLOGY OFFICE VISIT CHIEF COMPLAINT Chief Complaint Patient presents with New Patient Visit Pt is here today as a new patient from Dr. Ferrer HISTORY OF PRESENT ILLNESS HPI 58-year-old male with a past medical history of hypertension with tobacco use and COPD. Patient was evaluated by cardiology service since January 2022 for bradycardia. Patient had an evaluation for shortness of breath and his stress test showed questionable inferior wall ischemia. At some point he had some evaluation in [place] that shows no significant obstructive coronary disease and medical therapy was recommended. He also was complaining of bradycardia for many years. Previous Holter monitor and documented resting studies show sinus bradycardia. And a stress test was performed as described above back in 2021. Stress test 2021 Summary: 1. Submaximal graded exercise stress test [...] 7. An element of chronotropic incompetency noted. CT angio of the coronary arteries in November 2021 Impressions: 1. Calcifications in thecoronary arteries, giving an Agatston score of 122 which places the patient between the 50th and 75th percentile rank. 2. Mild irregularity of the coronary arteries with mild to moderate stenosis proximal RCA. 3. No significant left coronary stenosis. Patient states that lately he has been complaining of getting more tired and fatigued doing physical activities. A Holter monitor was ordered. Holter monitor July 2023 Conclusion 1. Baseline rhythm is sinus bradycardia with average heart rate of 53 bpm 2. Frequent isolated ventricular and supraventricular ectopic beat 3. No tachycardic episode 4. 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 No symptoms reported by the patient Current EKG shows marked sinus bradycardia rate of 41 bpm QRS ration 100 ms QT corrected he had a 91 ms. Rhythm strip shows the same pattern. Past Medical History No past medical history on file. Social History Social History Tobacco Use Smoking status: Every Day Packs/day: 1 Types: Cigarettes Smokeless tobacco: Never Substance Use Topics Alcohol use: Never Drug use: Never Family History Family History Problem Relation Name Age of Onset Mental illness Mother No Known Problems Father Allergies: No Known Allergies Outpatient Medications: Current Outpatient Medications Medication Instructions albuterol (Ventolin HFA) 90 mcg/actuation inhaler 2 puffs, inhalation, Every 4 hours PRN Aldactone 100 mg, oral, Daily with breakfast cetirizine (ZYRTEC) 10 mg, oral, Nightly brbyfmtyqsh-nmjfcchhk-vemwsqkv (TRELEGY-ELLIPTA) 100-62.5-25 mcg blister with device 1 puff, inhalation, Use as directed furosemide (LASIX) 40 mg, oral, 2 times daily gabapentin (NEURONTIN) 300 mg, oral, Daily nabumetone (RELAFEN) 500 mg, oral, 2 times daily omeprazole (PRILOSEC) 40 mg, oral, Daily oxyCODONE-acetaminophen (Percocet) 7.5-325 mg tablet 1 tablet, oral, Every 6 hours PRN oxygen (O2) gas therapy 2l at bedtime Singulair 10 mg, oral, Nightly REVIEW OF SYSTEMS Review of Systems Constitutional: Positive for malaise/fatigue. Cardiovascular: Negative for chest pain, dyspnea on exertion and palpitations. Gastrointestinal: Positive for heartburn. All other systems reviewed and are negative. VITALS Vitals: 07/22/23 1438 BP: 138/90 Pulse: (!) 41 PHYSICAL EXAM Constitutional: General: Awake. Appearance: Normal and healthy appearance. Well-developed and not in distress. Neck: Vascular: No JVR. JVD normal. Pulmonary: Effort: Pulmonary effort is normal. Breath sounds: No wheezing. No rhonchi. Rales present. Chest: Chest wall: Not tender to palpatation. Cardiovascular: PMI at left midclavicular line. Bradycardia present. Regular rhythm. Normal S1. Normal S2. Murmurs: There is no murmur. No gallop. No click. No rub. Pulses: Intact distal pulses. Edema: Peripheral edema absent. Abdominal: Tenderness: There is no abdominal tenderness. Musculoskeletal: Normal range of motion. General: No tenderness. Skin: General: Skin is warm and dry. Neurological: General: No focal deficit present. Mental Status: Alert and oriented to person, place and time. ASSESSMENT AND PLAN 1. Resting sinus bradycardia with evidence of chronotropic incompetency. Now appears to show some early signs of developing symptoms of fatigue, tiredness. Previous stress test he failed to achieve 85% of maximum predicted heart rate 2. Previous history of abnormal stress test which led to an ischemic evaluation. Apparently underwent ischemic evaluation. It is unclear to me whether it was a heart cath or a CTA. I was able also to find with care everywhere the result of coronary CTA showing minimal irregularity and mild to moderate stenosis of proximal RCA with Agatston score of 122 3. Hypertension 4. Tobacco use and COPD 5. Obesity 6. Mild coronary artery disease based on CTA showing moderate disease of the RCA. I will have low threshold to proceed with heart cath if patient develop any anginal symptoms considering his risk profile Plan-recommendations I had a lengthy discussion with patient and family member regarding evidence of sinus node dysfunction seen on Holter monitor. Patient started noticing having symptoms of tiredness and fatigue and also significant bradycardia during daytime. Patient will benefit of a dual-chamber pacemaker implantation. Procedure, risk, benefits and possible complications were explained to patient. All questions were answered. Patient agrees with plan. Informed consent was signed. Follow my office 7 days postprocedure for wound assessment. Get echocardiogram for left ventricular ejection fraction evaluation prior to a pacemaker implantation. Risk factor modification and lifestyle modification discussed with patient. Diet , exercise and hydration discussed with patient. I have personally review with patient during this office visit, laboratory data, echocardiogram results, stress test results, Holter-event monitor results prior and after the last electrophysiology visit. All questions has been answered. Please excuse any errors in grammar or translation related to this dictation. Voice recognition software was utilized to prepare this document. documented in this encounter [facility] Work Phone: 07-22-2023 Instructions Jazz Metz RN - 07/22/2023 1:45 PM EDT Continue same medications/treatment. Patient educated on proper medication use. Patient educated on risk factor modification. Please bring any lab results from other providers/physicians to your next appointment. Please bring all medicines, vitamins, and herbal supplements with you when you come to the office. Prescriptions will not be filled unless you are compliant with your follow up appointments or have a follow up appointment scheduled as per instruction of your physician. Refills should be requested at the time of your visit. SCHEDULE Echocardiogram SCHEDULE pacemaker implant Obtain labs 1 week prior to procedure. Orders are in the system. Follow up 7 days after procedure for wound check I, JAZZ METZ RN, AM SCRIBING FOR, AND IN THE PRESENCE OF DR. AMADOR SON MD documented in this encounter [facility] Work Phone: 07-20-2022 Note CONSULTATION PROCEDURE DATE: 07/20/2022 Procedure [...] right medial portion of his leg. [facility] 05-07-2022 Note CONSULTATION CONSULTATION DATE: 05/07/2022 [...] three months' time unless otherwise indicated. [facility] 01-14-2022 Note CONSULTATION CONSULTATION DATE: 01/14/2022 [...] it was recommended that he see a green building materials distributor, which he did do. He did a Holter monitor study and is following up with his green building materials distributor on 01/28/2022. Current medications include gabapentin 300 [...] agrees with the plan of care. [facility] 11-19-2021 Note CONSULTATION CONSULTATION DATE: 11/19/2021 [...] to S1. 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 [facility] Signed and Approved by: TERESO COLMENARES . 11/27/2021 14:13:00 [facility] 10-22-2021 Note CONSULTATION CONSULTATION DATE: 10/22/2021 HISTORY [...] patient agrees with the plan of care. [facility] Signed and Approved by: TERESO COLMENARES . 11/04/2021 16:23:00 [facility] 10-01-2021 Note [...] shape. He has seen Dr. Nunn in [place] in the past regarding his back, and [...] Approved by: TERESO COLMENARES . 10/08/2021 16:01:00 [facility] 08-31-2020 Note Microbiology PROCEDURE: Blood Culture Charcoal [R1] SOURCE: Blood BODY SITE: Arm L COLLECTED DATE/TIME: 08/24/2020 01:07 EDT RECEIVED DATE/TIME: 08/24/2020 03:43 EDT START DATE/TIME: 08/24/2020 03:43 EDT FREE TEXT SOURCE: Peripheral vein site #[address], David Palacio MD, David FINAL REPORTS Final Report [] Verified Date/Time: 08/31/2020 07:00 EDT No growth at 7 days. Performing Locations R1: This test was performed at: [facility], [address] [place] [address], [address] [place] [address], [facility] Comment on above: Performed By: #### 1 [id number] ####[facility] [id number] [place] [address] 08-31-2020 Note Microbiology PROCEDURE: Blood Culture Charcoal [R1] SOURCE: Blood BODY SITE: Arm R COLLECTED DATE/TIME: 08/24/2020 00:35 EDT RECEIVED DATE/TIME: 08/24/2020 03:42 EDT START DATE/TIME: 08/24/2020 03:42 EDT FREE TEXT SOURCE: Peripheral vein site #[address], David Palacio MD, David FINAL REPORTS Final Report [] Verified Date/Time: 08/31/2020 07:00 EDT No growth at 7 days. Performing Locations R1: This test was performed at: [facility], [address] [place] [address], [id number] , [place], [facility] Comment on above: Performed By: #### 1 [id number] ####[facility] [address] [place] [address] Evaluation note Diagnosis 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 Sinus bradycardia Other specified cardiac dysrhythmias Establishing care with new doctor, encounter for BMI 34.0-34.9,adult Sick sinus syndrome (CMS/HCC) Sinoatrial node dysfunction Simple chronic bronchitis (CMS/HCC) Simple chronic bronchitis Current smoker Other fatigue Preoperative cardiovascular examination Pre-operative cardiovascular examination documented in this encounter [facility] Work Phone: History of Present illness Narrative* Patient is here for cardiovascular evaluation for second opinion in regard to documents resting sinus bradycardia. The patient is 56-year-old with history of tobacco use and COPD was evaluated recently due to shortness of breath and his stress test showed questionable inferior wall ischemia. This led to a cardiac evaluation in [place] and its not clear to me whether the patient had CT angio or cardiac catheterization which apparently did not show significant obstructive disease and medical therapy was recommended. The patient reported that he has been told that he had resting sinus bradycardiafor many years even in his 20s. Previous Holter monitor done and documented resting physiologic sinus bradycardia. However his bradycardia noted to be slightly worse recently. Repeat Holter monitor showed resting sinus bradycardia average heart rate of 48 beats per minutes. His heart rate dipped toduring the night to the upper 20s. There was no long pauses or symptoms reported by the patient. Few PACs and PVCs reported. Patient report mild shortness of breath related to his chronic obstructivelung disease and tobacco use. He does describe history of hypertension. He denies any lightheadedness, dizziness or syncope. He reported he had a limited exercise tolerance due to his recent injury that required surgery to his right leg. However he reported this has improved. During his Holter monitor his maximum heart rate was 112 beats per minutes. * Assessment * 1. Resting sinus bradycardia appears to be physiologic. Patient has that documented for many years.No obvious symptoms can be correlated with his bradycardia. * 2. Recently observed borderline stress test which led to an ischemic evaluation. Jose Antonio unclear if it was CTA angio or cardiac catheterization with but the patient was told no significant obstructive disease * 3. Hypertension * 4. Tobacco use and COPD * 5. Recent accident led to surgery in his right leg/thigh with pain control procedure details lacking. * Plan * 1. At this point of time I would continue to recommend observant approach considering lack of convincing symptoms, no finding on the Holter monitor that meet the criteria for pacemaker implantation and based on his functional status * 2. I recommended to the patient to have a GXT to assess for chronotropic competency * 3. Patient was counseled regarding smoking cessation * 4. We will try to retrieve his recent ischemic evaluation * 5 follow-up in [address] [place] [address] DO Work Phone: History of Present illness Narrative* Patient is here for cardiovascular evaluation for second opinion in regard to documents resting sinus bradycardia. The patient is 56-year-old with history of tobacco use and COPD was evaluated recently due to shortness of breath and his stress test showed questionable inferior wall ischemia. This led to a cardiac evaluation in [place] and its not clear to me whether the patient had CT angio or cardiac catheterization which apparently did not show significant obstructive disease and medical therapy was recommended. The patient reported that he has been told that he had resting sinus bradycardiafor many years even in his 20s. Previous Holter monitor done and documented resting physiologic sinus bradycardia. However his bradycardia noted to be slightly worse recently. Repeat Holter monitor showed resting sinus bradycardia average heart rate of 48 beats per minutes. His heart rate dipped toduring the night to the upper 20s. There was no long pauses or symptoms reported by the patient. Few PACs and PVCs reported. Patient report mild shortness of breath related to his chronic obstructivelung disease and tobacco use. He does describe history of hypertension. He denies any lightheadedness, dizziness or syncope. He reported he had a limited exercise tolerance due to his recent injury that required surgery to his right leg. However he reported this has improved. During his Holter monitor his maximum heart rate was 112 beats per minutes. * Assessment * 1. Resting sinus bradycardia appears to be physiologic. Patient has that documented for many years.No obvious symptoms can be correlated with his bradycardia. * 2. Recently observed borderline stress test which led to an ischemic evaluation. Jose Antonio unclear if it was CTA angio or cardiac catheterization with but the patient was told no significant obstructive disease * 3. Hypertension * 4. Tobacco use and COPD * 5. Recent accident led to surgery in his right leg/thigh with pain control procedure details lacking. * Plan * 1. At this point of time I would continue to recommend observant approach considering lack of convincing symptoms, no finding on the Holter monitor that meet the criteria for pacemaker implantation and based on his functional status * 2. I recommended to the patient to have a GXT to assess for chronotropic competency * 3. Patient was counseled regarding smoking cessation * 4. We will try to retrieve his recent ischemic evaluation * 5 follow-up in 6 [facility] Work Phone: History of Present illness Narrative* Patient is here for cardiovascular evaluation for second opinion in regard to documents resting sinus bradycardia. The patient is 56-year-old with history of tobacco use and COPD was evaluated recently due to shortness of breath and his stress test showed questionable inferior wall ischemia. This led to a cardiac evaluation in [place] and its not clear to me whether the patient had CT angio or cardiac catheterization which apparently did not show significant obstructive disease and medical therapy was recommended. The patient reported that he has been told that he had resting sinus bradycardiafor many years even in his 20s. Previous Holter monitor done and documented resting physiologic sinus bradycardia. However his bradycardia noted to be slightly worse recently. Repeat Holter monitor showed resting sinus bradycardia average heart rate of 48 beats per minutes. His heart rate dipped toduring the night to the upper 20s. There was no long pauses or symptoms reported by the patient. Few PACs and PVCs reported. Patient report mild shortness of breath related to his chronic obstructivelung disease and tobacco use. He does describe history of hypertension. He denies any lightheadedness, dizziness or syncope. He reported he had a limited exercise tolerance due to his recent injury that required surgery to his right leg. However he reported this has improved. During his Holter monitor his maximum heart rate was 112 beats per minutes. * Assessment * 1. Resting sinus bradycardia appears to be physiologic. Patient has that documented for many years.No obvious symptoms can be correlated with his bradycardia. * 2. Recently observed borderline stress test which led to an ischemic evaluation. Jose Antonio unclear if it was CTA angio or cardiac catheterization with but the patient was told no significant obstructive disease * 3. Hypertension * 4. Tobacco use and COPD * 5. Recent accident led to surgery in his right leg/thigh with pain control procedure details lacking. * Plan * 1. At this point of time I would continue to recommend observant approach considering lack of convincing symptoms, no finding on the Holter monitor that meet the criteria for pacemaker implantation and based on his functional status * 2. I recommended to the patient to have a GXT to assess for chronotropic competency * 3. Patient was counseled regarding smoking cessation * 4. We will try to retrieve his recent ischemic evaluation * 5 follow-up in 6 [facility] Work Phone: History of Present illness Narrative* Patient is here for follow-up continue management for recent evaluation for resting asymptomatic sinus bradycardia, hypertension and tobacco use. The patient was referred for a stress test. He was able to walk for more than 7 minutes. He achieved almost 77% of max predicted heart rate. He indicatedto me he could have gone longer but his back and right leg was bothering him. Since last time I sawhim he denies any cardiac complaint he feels well. * Assessment * 1. Resting sinus bradycardia his recent stress test showed good exercise tolerance and ability to achieve close to 77% of maximum predicted heart rate. He is completely asymptomatic * 2. Recently observed borderline stress test which led to an ischemic evaluation. He underwent cardiac catheterization in [place] which showed no significant obstructive disease * 3. Hypertension * 4. Tobacco use and COPD * 5. Recent accident led to surgery in his right leg/thigh with pain control procedure details lacking. * Plan * 1. With the patient the results of his recent diagnostic testing and I recommended continue with observant approach * 2. Patient was counseled regarding smoking cessation * 3. We will try to retrieve his cardiac catheterization * 4. I recommended aggressive approach risk factor modification * 5. Follow-up in 1 year with an EKG or earlier if the need arise [facility] DO Work Phone: Summary Purpose [...] being seen for a month follow-up of. Reason for Referral Specialty Diagnoses / Procedures Referred By Contac t Referred To Contact Cardiology Diagnoses Sinus bradycardia Chronotropic incompetence Sick sinus syndrome (CMS/HCC) Other fatigue Preoperative cardiovascular examination Procedures Transthoracic Echo Complete SC ECHO TTHRC R-T 2D W/WOM-MODE COMPL SPEC&COLR D Amador Son MD [address] [address] Referral ID Status Reason Start Date Expiration Date Visits Requested Visits Authorized [id number] Pending Review Perform Procedure 07/22/2023 07/21/2024 1 1 Specialty Diagnoses / Procedures Referred By Isela mckay Referred To Contact Diagnoses Sinus bradycardia Establishing care with new doctor, encounter for Procedures ECG 12 lead (Clinic Performed) Amador Son MD [address] [address] Referral ID Status Reason Start Date Expiration Date V isits Requested Visits Authorized [id number] Authorized 07/22/2023 07/21/2024 1 1 Additional Source Comments (unrecognized sect ion and content) No Status Records FoundNo Status Records FoundNo Status Records FoundNo Status Records FoundNo Status Records FoundNo Status Records FoundNo Status Records FoundNo Status Records Found INFORMATION SOURCE (unrecogn ized section and content) DATE CREATED AUTHOR 03/06/2021 [facility] DATE CREATED AUTHOR AUTHOR'S ORGANIZ ATION 03/12/2021 [facility] DATE CREATED AUTHOR AUTHOR'S ORGANIZ ATION 02/16/2022 [facility] DATE CREATED AUTHOR AUTHOR'S ORGANIZ ATION 07/16/2022 [facility] DATE CREATED AUTHOR AUTHOR'S ORGANIZ ATION 07/16/2022 [facility] DATE CREATED AUTHOR AUTHOR'S ORGANIZ ATION 09/17/2022 [facility] DATE CREATED AUTHOR AUTHOR'S ORGANIZ ATION 04/15/2023 [facility] DATE CREATED AUTHOR AUTHOR'S ORGANIZ ATION 07/23/2023 [facility] Ambulatory Reason for Visit (unrecogniz ed section and content) Reason Comments New Patient Visit Pt is here today as a new patient from Dr. Ferrer Specialty Diagnoses / Procedures Referred By Contcassandra t Referred To Contact Cardiology Diagnoses Sinus bradycardia Valentino Ferrer MD [address] [facility] [address], [address] [place] [address] Amador Son MD [address] [facility] [address], [address] [place] [address] Referral ID Status Reason Start Date Expiration Date Visits Requested Visits Authorized [id number] Authorized Specialty Services Required 07/15/2023 07/14/2024 1 1 Care Teams (unrecognized sec tion and content) [employer] Relationship Specialty Start Date End Date Ishmael Simon MD [address] [place] [address] PCP - General Family Medicine 06/29/23 FOR RECORDS PERTAINING TO PATIENTS WHO ARE [...] BE BASED ON THE PRIMARY CLINICAL RECORDS. [employer] provides no warranty or guarantee of the accuracy or completeness of information in this document.
[2023-07-29 07:20] LABS: Anion Gap 11.4; BUN Creatinine Ratio 16.3; Calcium 8.4 mg/dL (8.5-10.1); Carbon Dioxide 30.5 mmol/L (21.0-32.0); Chloride 101 mmol/L (98-107); Estimated GFR (African America >60 (>=60); Estimated GFR (Non-African Ame >60 (>=60); Glucose 111 mg/dL (74-106); Potassium 3.9 mmol/L (3.5-5.1); Sodium 139 mmol/L (136-145)
[2023-07-29 07:46] LABS: Prothrombin Time 9.8 sec (9.0-11.6)
[2023-07-29 07:55] LABS: INR <0.93
== END 2023-07-29 06:48 | disposition home or self-care (01) ==
LOC: LAB 06:53
PROVIDERS: PCP Family Medicine
DX: R00.1 Bradycardia, unspecified (principal); I45.89 Other specified conduction disorders; R53.83 Other fatigue
CPT/HCPCS: 36415; 80048; 85610

== ENCOUNTER 2023-10-10 12:16 | Outpatient (OUT) | payer MEDICARE, SELFPAY ==
--- NOTE | 2023-10-10 12:52 | XR_ITS ---
[address] [address] Patient Name: LILIANA MICHAELS MRN: [id number] date: 1965 Sex: M Assigned Patient Location: LAB Current Patient Location: Accession/Order Number: [id number] Exam Date: 10/10/2023 12:45 Report Date: 10/11/2023 11:34 At the request of: SEUN SIMON Procedure: XR shoulder KRISTOPHER min 2V EXAMINATION: XR shoulder KRISTOPHER min 2V HISTORY: Chronic pain of both shoulders M25.511, G89.29, M25.512 COMPARISON: No relevant comparison available. FINDINGS: RIGHT FINDINGS: BONES: Narrowing of the glenohumeral joint with undersurface osteophytes projecting from inferior margin of humeral head and inferior margin of glenoid. Narrowing of the acromioclavicular joint with prominent undersurface and cephalad projecting osteophytes. SOFT TISSUES: No visible soft tissue swelling. OTHER: Negative. LEFT FINDINGS: BONES: Narrowing of the glenohumeral joint with undersurface osteophytes projecting from inferior margin of humeral head and inferior margin of the glenoid. Narrowing of the acromioclavicular joint with prominent undersurface and cephalad projecting osteophytes. SOFT TISSUES: No visible soft tissue swelling. OTHER: Negative. XR/XR shoulder KRISTOPHER min 2V IMPRESSION: RIGHT CONCLUSION: Moderate degenerative changes of the glenohumeral joint and acromioclavicular joint. Findings would predispose to rotator cuff injury. LEFT CONCLUSION: Moderate degenerative changes of the glenohumeral joint and acromioclavicular joint. Findings would predispose to rotator cuff injury. Electronically authenticated by: FLEX JACOBS Date: 10/11/2023 11:34
[2023-10-10 13:59] LABS: Estimated Average Glucose 120 mg/dL; Glycohemoglobin A1C 5.8 % (4.5-6.2)
== END 2023-10-10 12:17 | disposition home or self-care (01) ==
LOC: LAB 12:19
PROVIDERS: PCP Family Medicine; Visit Provider Family Medicine
DX: E11.65 Type 2 diabetes mellitus with hyperglycemia (principal); M25.511 Pain in right shoulder; G89.29 Other chronic pain; M25.512 Pain in left shoulder; M19.012 Primary osteoarthritis, left shoulder; M19.011 Primary osteoarthritis, right shoulder
CPT/HCPCS: 36415; 73030; 83036

== ENCOUNTER 2023-10-12 13:51 | Outpatient (RCR) | payer MEDICARE, SELFPAY | END 2023-11-25 16:18 | disposition home or self-care (01) | LOC: PT 13:51 | PROVIDERS: PCP Family Medicine; Visit Provider Family Medicine | DX: M25.511 Pain in right shoulder (principal); M25.512 Pain in left shoulder | CPT/HCPCS: 97012; 97110; 97140; 97162 ==

== ENCOUNTER 2023-12-05 06:42 | Outpatient (OUT) | payer MEDICARE, SELFPAY ==
--- OUTSIDE RECORDS SUMMARY | 2023-12-05 06:46 | XMS_ITS | CCD ---
Author Organization [facility] Care Team Providers Care Senior Net Engineer Name Role Phone SIMONE RUIZ Admitting Unavailable SIMONE RUIZ Attending Unavailable ISHMAEL SIMON Referring Unavailable ISHMAEL SIMON Primary Care Unavailable JEY ELISE Attending Unavailable JEY ELISE Surgeon Unavailable SC Procedure Practitioner Unavailab ISHMAEL Campoverde Primary Care Unavailable ISHMAEL SIMON Referring Unavailable JEY ELISE Admitting Unavailable JEY ELIES Attending Unavailable ISHMAEL SIMON Primary Care Unavailable ISHMAEL SIMON Referring Unavailable JEY ELISE Admitting Unavailable Ishmael Simon Unavailable Unavailable Unavailable Carissa, Dr. Armstrong Attending Unavaila ble Jamaroulnic, Dr. Armstrong Referring Unavaila ble Naderemarilee, Dr. Ishmael Vallejo Primary Care Unavai lable Carissa, Dr. Armstrong Attending Unavaila ble Jamaroulnic, Dr. Armstrong Referring Unavaila ble Naderemarilee, Dr. Ishmael Vallejo Primary Care Anupamavai labjayla Simon, Dr. Ishmael Vallejo Primary Care Unavai lable Alfred, Dr. Ishmael Vallejo Referring Unavai lable Traboulnic, Dr. Armstrong Attending Unavaila ble ALFRED, DR ISHMAEL Rae Primary Care Unavailable IBARRA ., DR RICKY Bateman Attending Unavailable IBARRA ., DR RICKY Bateman Consulting Unavailable IBARRA ., DR RICKY Bateman Admitting Unavailable LAKSHMIPATHY ., WILDER Admitting Anupama vailable LAKSHMIPATHY ., WILDER Attending Anupama vailable LAKSHMIPATHY ., WILDER Consulting Anupama vailable ALFRED, DR ISHMAEL Rae [...] ISHMAEL Rae Primary Care Unavailable LAKSHMIPATHY ., NARSUAD Admitting Anupama vailable IBARRA ., DR RICKY [...] ., DR MCINTOSH Consulting Unavailable LAKSHMIPATHY ., CONNERENDSOSA Admitting Anupama vailable LAKSHMIPATHY ., WILDER Attending [...] NADEREMarilee, DR ISHMAEL Rae Primary Care Unavailable NadIshmael squires MD Primary Care Provider Ishmael Simon MD Primary Care Provider ISHMAEL SIMON Attending Unavailable NADEREMarilee, ISHMAEL Attending Unavailable VALENTINO TY Attending Unavailable [facility] VALENTINO TY Referring Unavailable NADERER, ISHMAEL [facility] Unavailabl e AMADOR SON Attending Unavailable NADERER, ISHMAEL [facility] Unavailabl e VALENTINO TY Referring Unavailable AMADOR SON Attending Unavailable NADERER, ISHMAEL [facility] Unavailabl e NADERER, [facility] Unavailabl e MCKENNA NAIMA E Attending Unavaila ble NADERER, [facility] Unavailabl e MCKENNA, NAIMA E Referring Unavaila ble NADERER, ISHMAEL [facility] Unavailabl e AMADOR SON Referring Unavailable NADEREMarilee, ISHMAEL [facility] Unavailkait e ANA M KUMARI Referring Unavailable NADERER, ISHMAEL [facility] UnavailANA M Flores Referring Unavailable NADERER, ISHMAEL [facility] Unavailabl e Medications Current Medications Medication Drug Class(es) Dates Sig (Normalized) Sig (Original) acetaminophen 325 mg oral tablet (1 source) Start: 08-05-2023 take 1 tablet by mouth every four hours as needed acetaminophen (Tylenol) tablet 650 mg acetaminophen 325 mg / oxyCODONE hydrochloride 7.5 mg oral tablet (11 sources) Opioid Agonist Start: 03-30-2021 take 1 tablet by mouth every six hours as needed oxyCODONE-acetamino phen (Percocet) 7.5-325 mg tablet Take 1 tablet by mouth every 6 hours if needed for severe pain (7 - 10). 03/30/2021 Active Start: 03-30-2021 take 1 tablet by mindi four times daily as needed oxyCODONE-Acetaminophen 7.5-325 MG Oral Tablet TAKE 1 TABLET BY MOUTH FOUR TIMES A DAY NEEDED Quantity: 120 Refills: 0 Ordered: 01-Apr-2021 DO Start : 30-Mar-2021 Active [id number] 200 actuat albuterol 0.09 mg/actuat metered dose inhaler (6 sources) beta2-Adrenergic Agonist take 2 puff(s) by inhalation every four hours albuterol (Ventolin HFA) 90 mcg/actuation inhaler Inhale 2 puffs every 4 hours if needed. Active cetirizine hydrochloride 10 mg oral tablet (11 sources) Histamine-1 Receptor Antagonist take 1 tablet by mouth once daily at bedtime cetirizine (ZyrTEC) 10 mg tablet Take 1 tablet (10 mg) by mouth once daily at bedtime. Active 30 actuat fluticasone furoate 0.1 mg/actuat / umeclidinium 0.0625 mg/actuat / vilanterol 0.025 mg/actuat dry powder inhaler (11 sources) Anticholinergic, Corticosteroid, beta2-Adrenergic Agonist fluticasone-ume clidi n-vilanter (TRELEGY-ELLIPTA) 100-62.5-25 mcg blister with device Inhale 1 puff. Use as directed Active Trelegy Ellipta 100-62.5-25 MCG/INH AEPB USE DIRECTED Quantity: 0 Refills: 0 Ordered: 28-Jan-2022 DO Active furosemide 40 mg oral tablet (11 sources) Loop Diuretic take 1 tablet by mouth twice daily furosemide (Lasix) 40 mg tablet Take 1 tablet (40 mg) by mouth 2 times a day. Active gabapentin 300 mg oral capsule (11 sources) Anti-epileptic Agent take 1 capsule by mouth once daily gabapentin (Neurontin) 300 mg capsule Take 1 capsule (300 mg) by mouth once daily. Active montelukast 10 mg oral tablet (11 sources) Leukotriene Receptor Antagonist take 1 tablet by mouth once daily at bedtime Singulair 10 mg tablet Take 1 tablet (10 mg) by mouth once daily at bedtime. Active nabumetone 500 mg oral tablet (11 sources) Nonsteroidal Anti-inflammatory Drug take 1 tablet by mouth twice daily nabumetone (Relafen) 500 mg tablet Take 1 tablet (500 mg) by mouth 2 times a day. Active take 1 tablet by mouth once victoriano y Nabumetone 500 MG Oral Tablet TAKE 1 TABLET EVERY 12 HOURS DAILY. Quantity: 0 Refills: 0 Ordered: 28-Jan-2022 DO Active omeprazole 40 mg delayed release oral capsule (11 sources) Proton Pump Inhibitor take 1 capsule by mouth once daily omeprazole (PriLOSEC) [address] capsule Take 1 capsule (40 mg) by mouth once daily. Active 2 ml ondansetron 2 mg/ml injection (1 source) Serotonin-3 Receptor Antagonist Start: 08-05-19 take 4 mg intravenously every eight hours as needed ondansetron (Zofran) injection 4 mg oxygen (O2) gas therapy (6 sources) oxygen (O2) gas therapy 2l at bedtime Active oxygen (O2) gas therapy 2l at bedtime 0 Active perflutren lipid microspheres (Definity) injection 0.5-10 mL of dilution (1 source) Start: 08-05-2023 perflutren lipid microspheres (Definity) injection 0.5-10 mL of dilution spironolactone 100 mg oral tablet (11 sources) Aldosterone Antagonist take 1 tablet by mouth once daily at breakfast Aldactone 100 mg tablet Take 1 tablet (100 mg) by mouth once daily with breakfast. Active traMADol hydrochloride 50 mg oral tablet (1 source) Opioid Agonist Start: 08-05-2023 take 1 tablet by mouth every six hours as needed traMADol (Ultram) tablet 50 mg Completed/Discontinued Medications Medication Drug Class(es) Dates Sig (Normalized) Sig (Original) ceFAZolin 1000 mg injection (1 source) Cephalosporin Antibacterial Start: 08-05-2023 End: 08-05-2023 ceFAZolin in dextrose (iso-os) (Ancef) IVPB 1 g chlorhexidine gluconate 40 mg/ml medicated liquid soap (1 source) Start: 08-05-2023 End: 08-05-2023 chlorhexidine (Hibiclens) 4 % liquid Start: 08-05-2023 End: 08-05-2023 chlorhexidine (Hibiclens) 4 % liquid cholecalciferol 0.05 mg oral capsule (4 sources) Vitamin D take 1 capsule by mouth once daily Vitamin D 50 MCG (1999 UT) Oral Capsule TAKE 1 CAPSULE Daily Quantity: 90 Refills: 0 Ordered: 28-Jan-2022 DO Active Dupixent SOPN (1 source) Dupixent SOPN US E DIRECTED Quantity: 0 Refills: 0 Ordered: 14-Jul-2022 DO Active mupirocin 0.02 mg/mg topical ointment (1 source) RNA Synthetase Inhibitor Antibacterial Start: 08-05-19 End: 08-05-19 mupirocin (Bactroban) 2 % ointment 1 Application Start: 08-05-2023 End: 08-05-2023 mupirocin (Bactroban) 2 % oi ntment 1 Application Oxygen (5 sources) Oxygen 2l at bed time Quantity: 0 Refills: 0 Ordered: 28-Jan-2022 DO Active 1000 ml sodium chloride 9 mg/ml injection (2 sources) Start: 08-05-2023 End: 08-05-2023 sodium chloride 0.9% infusion triamcinolone acetonide 1 mg/ml topical cream (4 sources) Corticosteroid Triamcinolone Ac etonide 0.1 % External Cream USE DIRECTED. Quantity: 0 Refills: 0 Ordered: 28-Jan-2022 DO Active Ventolin HFA AERS (5 sources) Ventolin HFA AER S USE DIRECTED Quantity: 0 Refills: 0 Ordered: 28-Jan-2022 DO Active Problems Active Problems Problem Classification Problem Date Documented Da te Episodic/Chronic Abdominal pain (8 sources) Unspecified abdominal pain; Translations: [Right lower quadrant pain] Onset: 06-11-2022 Episodic Cardiac dysrhythmias (17 sources) Sick sinus syndrome; Translations: [Sick sinus syndrome] Onset: 07-13-2023 07-22-2023 Chronic Chronic obstructive pulmonary disease and bronchiectasis (18 sources) Chronic obstructive lung disease; Translations: [Chronic airway obstruction, not elsewhere classified] Onset: 05-23-2023 07-22-2023 Chronic Conduction disorders (20 sources) Chronotropic incompetence; Translations: [Other specified conduction disorders] Onset: 07-13-2023 07-22-2023 Chronic Congestive heart failure; nonhypertensive (8 sources) Chronic diastolic heart failure; Translations: [Chronic diastolic (congestive) heart failure] Onset: 04-13-2023 07-22-2023 Chronic Diabetes mellitus with complications (7 sources) Type 2 diabetes mellitus with hyperglycemia; Translations: [Type 2 diabetes mellitus] Onset: 05-13-2022 07-22-2023 Chronic Disorders of lipid metabolism (1 source) Hyperlipidemia, unspecified; Translations: [HYPERLIPIDEMIA UNSPECIFIED] Onset: 05-13-2022 Chronic Essential hypertension (10 sources) Essential (primary) hypertension; Translations: [Benign essential hypertension] Onset: 05-13-2022 07-22-2023 Chronic Nutritional deficiencies (4 sources) Vitamin D deficiency, unspecified; Translations: [VITAMIN D DEFICIENCY UNSPECIFIED] Onset: 05-07-2022 Chronic Other connective tissue disease (4 sources) Neuralgia and neuritis, unspecified; Translations: [NEURALGIA AND NEURITIS UNSPECIFIED] Onset: 07-23-2022 Episodic Other hereditary and degenerative nervous system conditions (1 source) Dystonia, unspecified; Translations: [DYSTONIA UNSPECIFIED] Onset: 07-30-2022 Chronic Other lower respiratory disease (1 source) Dyspnea, [...] Chronic Other nutritional; endocrine; and metabolic disorders (8 sources) Body mass index 30+ - obesity; Translations: [Body mass index (BMI) 34.0-34.9, adult] Onset: 07-13-2023 07-22-2023 Chronic Other nutritional; endocrine; and metabolic disorders (2 sources) Body mass index (BMI) 34.0-34.9, adult; Translations: [Body mass index (BMI) 34.0-34.9, adult] Onset: 07-13-2023 Chronic Other skin disorders (2 sources) Localized swelling of left hand; Translations: [Localized swelling, mass and lump, left upper limb] 08-10-2023 Episodic Peripheral and visceral atherosclerosis (8 sources) Peripheral vascular disease; Translations: [Peripheral vascular disease, unspecified] Onset: 04-13-2023 07-22-2023 Chronic Residual codes; unclassified (7 sources) Obstructive sleep apnea syndrome; Translations: [Obstructive sleep apnea (adult) (pediatric)] Onset: 04-13-2023 07-22-2023 Chronic Residual codes; unclassified (1 source) Obstructive sleep apnea (adult) (pediatric); Translations: [Obstructive sleep apnea (adult) (pediatric)] Onset: 07-22-2023 Chronic Spondylosis; intervertebral disc disorders; other back problems (10 sources) Spondylosis without myelopathy or radiculopathy, lumbar region; Translations: [Other intervertebral disc degeneration, lumbar region] Onset: 10-02-2021 Chronic Substance-related disorders (19 sources) Smoker; Translations: [Tobacco use disorder] Onset: 07-15-2022 Chronic Comment on above: 1 pack daily; Unclassified (1 source) LOW BACK PAIN, UNSPECIFIED; Translations: [LOW BACK PAIN, UNSPECIFIED] Onset: 05-13-2022 Unclassified (3 sources) CONTACT W/AND (SUSP) EXPOS COVID-19; Translations: [CONTACT W/AND (SUSP) EXPOS COVID-19] Onset: 12-14-2021 Viral infection (1 source) COVID-19; Translations: [COVID-19] Onset: 04-14-2022 Past or Other Problems Problem Classification Problem Date Documented Date Episodic/Chronic Administrative/social admission (3 sources) Patient encounter status; Translations: [Persons encountering health services in other specified circumstances] Onset: 07-22-2023 07-22-2023 Episodic Cardiac dysrhythmias (20 sources) Sinus bradycardia; Translations: [Other specified cardiac dysrhythmias] Onset: 01-01-2022 Episodic Malaise and fatigue (10 sources) Fatigue; Translations: [Other fatigue] Onset: 07-22-2023 07-22-2023 Episodic Other aftercare (1 source) Other rodent exterminator (current) drug therapy; Translations: [OTH RENAL MEDICINE SPECIALIST CURRENT DRUG THERAPY] Onset: 05-13-2022 Episodic Other connective tissue disease (1 source) Other muscle spasm; Translations: [OTHER MUSCLE SPASM] Onset: 05-13-2022 Episodic Other lower respiratory disease (12 sources) Dyspnea; Translations: [Other respiratory abnormalities] Onset: 05-23-2023 05-23-2023 Episodic Other lower respiratory disease (4 sources) Pleurodynia; Translations: [PLEURODYNIA] Onset: 10-01-2021 Episodic Other lower respiratory disease (2 sources) Other forms of dyspnea; Translations: [Other forms of dyspnea] Onset: 05-23-2023 Episodic Other screening for suspected conditions (not mental disorders or infectious disease) (18 sources) Cardiovascular stress test abnormal; Translations: [Other nonspecific abnormal results of function study of cardiovascular system] Onset: 02-15-2022 05-23-2023 Episodic Other skin disorders (2 sources) Localized swelling, mass and lump, left upper limb; Translations: [Localized swelling, mass and lump, left upper limb] Onset: 08-10-2023 Episodic Spondylosis; intervertebral disc disorders; other back problems (3 sources) Muscle spasm of back; Translations: [Intervertebral disc disorders with radiculopathy, lumbar region] Onset: 10-26-2021 Episodic Unclassified (1 source) CONTACT W/AND (SUSP) EXPOS COVID-19; Translations: [CONTACT W/AND (SUSP) EXPOS COVID-19] Onset: 04-12-2022 Unclassified (6 sources) Onset: 07-13-2023 Resolved: 08-10-2023 07-13-2023 Results Test Name Value Interpretation Reference Range Facility XR CHEST 2 VIEWSon XR CHEST 2 VIEWS Interpreted By: Sancho Gross, STUDY: XR CHEST 2 VIEWS; 11/09/2023 9:46 am INDICATION: Signs/Symptoms:Pacem marilyn. COMPARISON: 08/05/2023 ACCESSION NUMBER(S): [id number] ORDERING CLINICIAN: ANA M KUMARI FINDINGS: Left-sided pacemaker in place. CARDIOMEDIASTINAL SILHOUETTE: Cardiomediastinal silhouette is normal in size and configuration. LUNGS: Lungs are clear. ABDOMEN: No remarkable upper abdominal findings. BONES: No acute osseous changes. IMPRESSION: 1. No evidence of acute cardiopulmonary process. MACRO: None Signed by: Sancho Gross 11/10/2023 8:35 AM Dictation workstation: [id number] [facility] Comment on above: Order Comment: Repor t to [facility] registration on 11/09/2023 at 8:30 AM for chest x-ray and device check prior to appointment with Dr. Son at 10 AM Cardiac Device Check - Remot neeta 09-26-2023 [facility] Work Phone: Radiology Study observation (narrative) [facility] Work Phone: US.doppler Upper extremity v ein - lefton 08-10-2023 Exam negative for acute deep venous thrombosis in the left upper extremity MACRO: None Signed by: Simone Ramos 08/10/2023 3:07 PM Dictation workstation: [id number] [facility]ODAL Interpreted By: Simone Ramos, STUDY: VASC US UPPER EXTREMITY VENOUS DUPLEX LEFT; 08/10/2023 2:47 pm INDICATION: Signs/Symptoms: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 COMPARISON: Portable chest 05 August 2023 ACCESSION NUMBER(S): [id number] ORDERING CLINICIAN: NAIMA WRIGHT TECHNIQUE: Vascular ultrasound of the left upper extremity was performed. Evaluation was performed with grayscale, color, and spectral Doppler. When possible, compression views of the evaluated veins was also performed. FINDINGS: Evaluation of the visualized portions of the left internal jugular, innominate, subclavian, axillary, and brachial cephalic, and basilic veins as well as ulnar and radial veins was performed. All vessels patent and, where applicable, normally compressible [facility]AL Simone Ramos MD - 08/10/2023 Interpreted By: Simone Ramos, STUDY: VASC US UPPER EXTREMITY VENOUS DUPLEX LEFT; 08/10/2023 2:47 pm INDICATION: Signs/Symptoms: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 COMPARISON: Portable chest 05 August 2023 ACCESSION NUMBER(S): [id number] ORDERING CLINICIAN: NAIMA WRIGHT TECHNIQUE: Vascular ultrasound of the left upper extremity was performed. Evaluation was performed with grayscale, color, and spectral Doppler. When possible, compression views of the evaluated veins was also performed. FINDINGS: Evaluation of the visualized portions of the left internal jugular, innominate, subclavian, axillary, and brachial cephalic, and basilic veins as well as ulnar and radial veins was performed. All vessels patent and, where applicable, normally compressible IMPRESSION: Exam negative for acute deep venous thrombosis in the left upper extremity MACRO: None Signed by: Simone Ramos 08/10/2023 3:07 PM Dictation workstation: [id number] [facility] Work Phone: Radiology Study observation (narrative) [facility] Work Phone: US.doppler Upper extremity v ein - leftOrdered By: Simone Ramos on 08-10-2023 [facility] Work Phone: VASC US UPPER EXTREMITY VENO US DUPLEX LEFTon 08-10-2023 [facility] US UPPER EXTREMITY VENOUS DUPLEX LEFT Interpreted By: Simone Ramos, STUDY: [facility] US UPPER EXTREMITY VENOUS DUPLEX LEFT; 08/10/2023 2:47 pm INDICATION: Signs/Symptoms: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 COMPARISON: Portable chest 05 August 2023 ACCESSION NUMBER(S): [id number] ORDERING CLINICIAN: NAIMA WRIGHT TECHNIQUE: Vascular ultrasound of the left upper extremity was performed. Evaluation was performed with grayscale, color, and spectral Doppler. When possible, compression views of the evaluated veins was also performed. FINDINGS: Evaluation of the visualized portions of the left internal jugular, innominate, subclavian, axillary, and brachial cephalic, and basilic veins as well as ulnar and radial veins was performed. All vessels patent and, where applicable, normally compressible IMPRESSION: Exam negative for acute deep venous thrombosis in the left upper extremity MACRO: None Signed by: Simone Ramos 08/10/2023 3:07 PM Dictation workstation: [id number] [facility] Basic metabolic 2000 panelon 08-05-2023 Anion gap [Moles/Vol] 12 mmol/L 10 - 2 0 mmol/L [facility] Calcium [Mass/Vol] 9.6 mg/dL 8.6 - 10. 3 mg/dL [facility] Chloride [Moles/Vol] 102 mmol/L 98 - 10 7 mmol/L [facility] CO2 [Moles/Vol] 29 mmol/L 21 - 32 mmol/L [facility] Creatinine [Mass/Vol] 1.12 mg/dL 0.50 - 1.30 mg/dL [facility] GFR/1.73 sq M.predicted among non-blacks MDRD (S/P/Bld) [Vol rate/Area] 76 mL/min/{1.73_m2} - PINF [facility] Comment on above: Calculations of yang mated GFR are performed using the 2020 CKD-EPI Study Refit equation without the race variable for the IDMS-Traceable creatinine methods. https://jasn.asnjournals.org/content//ASN.2020 186364 Glucose [Mass/Vol] 95 mg/dL 74 - 99 mg/dL [facility] Interpretation and review of laboratory results Normal [facility] Potassium [Moles/Vol] 4.0 mmol/L 3.5 - 5.3 mmol/L [facility] Sodium [Moles/Vol] 139 mmol/L 136 - 145 mmol/L [facility] Urea nitrogen [Mass/Vol] 17 mg/dL 6 - 23 mg/dL [facility] Anion gap [Moles/Vol] 12 mmol/L Normal 10-20 [facility] Comment on above: Performed By: #### 2 4321-2 #### JAIMEE QURESHI ([id number]) [facility] ([facility]) [address] [place] [address] 23252 Calcium [Mass/Vol] 9.6 mg/dL Normal 8.6-10.3 [facility] Comment on above: Performed By: #### 2 4321-2 #### JAIMEE QURESHI ([id number]) [facility] ([facility]) [address] [place] [address] 80260 Chloride [Moles/Vol] 102 mmol/L Normal 98-107 [facility] Comment on above: Performed By: #### 2 4321-2 #### JAIMEE QURESHI ([id number]) [facility] ([facility]) [address] [place] [address] 79530 CO2 [Moles/Vol] 29 mmol/L Normal 21-32 [facility] Comment on above: Performed By: #### 2 4321-2 #### JAIMEE QURESHI ([id number]) [facility] ([facility]) [address] [place] [address] Creatinine [Mass/Vol] 1.12 mg/dL Normal 0.50-1.30 [facility] Comment on above: Performed By: #### 2 4321-2 #### JAIMEE QURESHI ([id number]) [facility] ([facility]) [address] [place] [address] 42240 Glomerular filtration rate/1.73 sq M.predicted 76 mL/min/1.73m*2 Normal >60 [facility] Comment on above: Result Comment: Calc ulations of estimated GFR are performed using the 2020 CKD-EPI Study Refit equation without the race variable for the IDMS-Traceable creatinine methods. https://jasn.asnjournals.org/content/early/ASN.2020 621459 Performed By: #### 2 4321-2 #### JAIMEE QURESHI ([id number]) [facility] ([facility]) [address] [place] [address] 87753 Glucose [Mass/Vol] 95 mg/dL Normal 74-99 [facility] Comment on above: Performed By: #### 2 4321-2 #### JAIMEE QURESHI ([id number]) [facility] ([facility]) [address] [place] [address] 91952 Potassium [Moles/Vol] 4.0 mmol/L Normal 3.5-5.3 [facility] Comment on above: Performed By: #### 2 4321-2 #### JAIMEE QURESHI ([id number]) [facility] ([facility]) [address] [place] [address] 92431 Sodium [Moles/Vol] 139 mmol/L Normal 136-145 [facility] Comment on above: Performed By: #### 2 4321-2 #### JAIMEE QURESHI ([id number]) [facility] ([facility]) [address] [place] [address] 24134 Urea nitrogen [Mass/Vol] 17 mg/dL Normal 6-23 [facility] Comment on above: Performed By: #### 2 4321-2 #### JAIMEE QURESHI ([id number]) [facility] ([facility]) [address] [place] [address] 07712 CBC panel Auto (Bld)on 08-04 Erythrocyte distribution width (RBC) [Ratio] 13.0 % 11.5 - 14.5 % [facility] Hematocrit (Bld) [Volume fraction] 46.9 % 41.0 - 52.0 % [facility] Hemoglobin (Bld) [Mass/Vol] 16.1 g/dL 13.5 - 17.5 g/dL [facility] Interpretation and review of laboratory results Normal [facility] MCH (RBC) [Entitic mass] 31.5 pg 26.0 - 34.0 pg [facility] MCHC (RBC) [Mass/Vol] 34.3 g/dL 32.0 - 36.0 g/dL [facility] MCV (RBC) [Entitic vol] 92 fL 80 - 100 fL [facility] Nucleated RBC/100 WBC (Bld) [Ratio] 0.0 % [facility] Platelets (Bld) [#/Vol] 279 10*3/uL [facility] RBC (Bld) [#/Vol] 5.11 10*6/uL [facility] WBC (Bld) [#/Vol] 8.9 10*3/uL [facility] Erythrocyte distribution width (RBC) [Ratio] 13.0 % Normal 11.5-14.5 [facility] Comment on above: Performed By: #### 5 8410-2 #### JAIMEE QURESHI ([id number]) [facility] (C) [address] [place] [address] 64529 Hematocrit (Bld) [Volume fraction] 46.9 % Normal 41.0-52.0 [facility] Comment on above: Performed By: #### 5 8410-2 #### AJIMEE QURESHI ([id number]) [facility] ([facility]) [address] [place] [address] 04519 Hemoglobin (Bld) [Mass/Vol] 16.1 g/dL Normal 13.5-17.5 [facility] Comment on above: Performed By: #### 5 8410-2 #### JAIMEE QURESHI ([id number]) [facility] ([facility]) [address] [place] [address] 17024 MCH (RBC) [Entitic mass] 31.5 pg Normal 26.0-34.0 [facility] Comment on above: Performed By: #### 5 8410-2 #### JAIMEE QURESHI ([id number]) [facility] ([facility]) [address] [place] [address] 99480 MCHC (RBC) [Mass/Vol] 34.3 g/dL Normal 32.0-36.0 [facility] Comment on above: Performed By: #### 5 8410-2 #### JAIMEE QURESHI ([id number]) [facility] ([facility]) [address] [place] [address] 22650 MCV (RBC) [Entitic vol] 92 fL Normal 80-100 [facility] Comment on above: Performed By: #### 5 8410-2 #### JAIMEE QURESHI ([id number]) [facility] (EM[facility]) [address] [place] [address] 94953 Nucleated RBC/100 WBC (Bld) [Ratio] 0.0 /100 WBCs Normal 0.0-0.0 [facility] Comment on above: Performed By: #### 5 8410-2 #### JAIMEE QURESHI ([id number]) [facility] ([facility]) [address] [place] [address] 21662 Platelets (Bld) [#/Vol] 279 x10*3/uL Normal 150-450 [facility] Comment on above: Performed By: #### 5 8410-2 #### JAIMEE QURESHI ([id number]) [facility] ([facility]) [address] [place] [address] 44154 RBC (Bld) [#/Vol] 5.11 x10*6/uL Normal 4.50-5.90 [facility] Comment on above: Performed By: #### 5 8410-2 #### JAIMEE QURESHI ([id number]) [facility] ([facility]) [address] [place] [address] 49601 WBC (Bld) [#/Vol] 8.9 x10*3/uL Normal 4.4-11.3 [facility] Comment on above: Performed By: #### 5 8410-2 #### JAIMEE QURESHI ([id number]) [facility] ([facility] [address] [place] [address] 90607 Electrophysiology studyon [facility] Work Phone: PT and aPTT panel Coag (PPP) on 08-05-2023 aPTT Coag (PPP) [Time] 34 s [facility] INR Coag (PPP) [Relative time] 1.0 {INR} 0.9 - 1.1 [facility] Interpretation and review of laboratory results Normal [facility] PT Coag (PPP) [Time] 11.0 s [facility] The APTT is no longer used for monitoring Unfractionated Heparin Therapy. For monitoring Heparin Therapy, use the Heparin Assay. [facility] aPTT Coag (PPP) [Time] 34 s Normal 27-[address] [facility] Comment on above: Order Comment: The A PTT is no longer used for monitoring Unfractionated Heparin Therapy. For monitoring Heparin Therapy, use the Heparin Assay. Performed By: #### 3 4529-8 #### JAIMEE QURESHI ([id number]) [facility] ([facility]) [address] [place] [address] 88273 INR Coag (PPP) [Relative time] 1.0 Normal 0.9-1.1 [facility] Comment on above: Order Comment: The A PTT is no longer used for monitoring Unfractionated Heparin Therapy. For monitoring Heparin Therapy, use the Heparin Assay. Performed By: #### 3 4529-8 #### JAIMEE QURESHI ([id number]) [facility] ([facility]) [address] [place] [address] 80492 PT Coag (PPP) [Time] 11.0 s Normal 9.8-12.8 [facility] Comment on above: Order Comment: The A PTT is no longer used for monitoring Unfractionated Heparin Therapy. For monitoring Heparin Therapy, use the Heparin Assay. Performed By: #### 3 4529-8 #### JAIMEE QURESHI ([id number]) [facility] ([facility]) [address] [place] [address] TRANSTHORACIC ECHO (TTE) COM Amarilis 08-05-2023 TRANSTHORACIC ECHO (TTE) COMPLETE [address] [address] TRANSTHORACIC ECHOCARDIOGRAM REPORT Patient Name: LILIANA Priest BRANDO Reading Physician: [id number] Batsheva Morris MD, [facility] Study Date: 08/05/2023 Ordering Provider: [id number] ANA M SALINAS MRN/PID: [id number] Fellow: Nurse: Date of /Age: 10 1965 / 58 Mechanical Supervisor: Eli Pisano RDCS Gender: M Additional Staff: Height: 162.56 cm Admit Date: Weight: 90.72 kg Admission Status: Outpatient BSA / BMI: 1.96 m2 / 34.33 Department Location: [place] [address] Echo Lab Blood Pressure: 128 /73 mmHg Study Type: TRANSTHORACIC ECHO (TTE) COMPLETE Diagnosis/ICD: Bradycardia, unspecified-R00.1 Indication: Abnormal EKG, Pre-EP CPT Codes: Echo Complete w Full Doppler-[id number] Study Detail: The following Echo studies were performed: 2D, M-Mode, color flow and Doppler. Technically challenging study due to body habitus. PHYSICIAN INTERPRETATION: Left Ventricle: Left ventricular systolic function is normal, with an estimated ejection fraction of 60%. There are no regional wall motion abnormalities. The left ventricular cavity size is normal. Spectral Doppler shows an impaired relaxation pattern of left ventricular diastolic filling. Left Atrium: The left atrium is mildly dilated. Right Ventricle: The right ventricle is normal in size. There is normal right ventricular global systolic function. Normal RV size and function Normal RVSP. Right Atrium: The right atrium is normal in size. Aortic Valve: The aortic valve is trileaflet. There is no evidence of aortic valve regurgitation. The peak instantaneous gradient of the aortic valve is 8.2 mmHg. The mean gradient of the aortic valve is 4.0 mmHg. Mildly thickened aortic valve without significant stenosis or regurgitation. Mitral Valve: The mitral valve is normal in structure. There is no evidence of mitral valve regurgitation. Normal mitral valve. Tricuspid Valve: The tricuspid valve is structurally normal. There is mild tricuspid regurgitation. Pulmonic Valve: The pulmonic valve is structurally normal. There is no indication of pulmonic valve regurgitation. Pericardium: There is a trivial pericardial effusion. Aorta: The aortic root is normal. Densely calcified ascending aorta though not dilated and no evidence of mobile plaque. CONCLUSIONS: 1. Left ventricular systolic function is normal with a 60% estimated ejection fraction. 2. Spectral Doppler shows an impaired relaxation pattern of left ventricular diastolic filling. 3. Normal RV size and function Normal RVSP. 4. Normal mitral valve. 5. Mildly thickened aortic valve without significant stenosis or regurgitation. 6. Severe sinus bradycardia heart rate 33-43 throughout. QUANTITATIVE DATA SUMMARY: 2D MEASUREMENTS: Normal Ranges: Ao Root d: 2.70 cm (2.0-3.7cm) LAs: 4.50 cm (2.7-4.0cm) IVSd: 1.08 cm (0.6-1.1cm) LVPWd: 1.15 cm (0.6-1.1cm) LVIDd: 5.28 cm (3.9-5.9cm) LVIDs: 3.77 cm LV Mass Index: 117.9 g/m2 LV % FS 28.6 % LA VOLUME: Normal Ranges: LA Vol A4C: 56.3 ml (22+/-6mL/m2) LA Vol A2C: 55.2 ml LA Vol BP: 57.2 ml LA Vol Index A4C: 28.8ml/m2 LA Vol Index A2C: 28.2 ml/m2 LA Vol Index BP: 29.3 ml/m2 LA Area A4C: 19.6 cm2 LA Area A2C: 18.9 cm2 LA [place] A4C: 5.8 cm LA [place] A2C: 5.5 cm LA Volume Index: 27.0 ml/m2 AORTA MEASUREMENTS: Normal Ranges: Asc Ao, d: 2.90 cm (2.1-3.4cm) LV SYSTOLIC FUNCTION BY 2D PLANIMETRY (MOD): Normal Ranges: EF-A4C View: 62.4 % (>=55%) EF-A2C View: 55.6 % EF-Biplane: 59.7 % LV DIASTOLIC FUNCTION: Normal Ranges: MV Peak E: 0.83 m/s (0.7-1.2 m/s) MV Peak A: 0.94 m/s (0.42-0.7 m/s) E/A Ratio: 0.88 (1.0-2.2) MV e' 0.11 m/s (>8.0) MV lateral e' 0.11 m/s MV medial e' 0.09 m/s E/e' Ratio: 7.78 (<8.0) MITRAL VALVE: Normal Ranges: MV DT: 293 msec (150-240msec) AORTIC VALVE: Normal Ranges: AoV Vmax: 1.43 m/s (<=1.7m/s) AoV Peak P.2 mmHg (<20mmHg) AoV Mean P.0 mmHg (1.7-11.5mmHg) LVOT Max Abiodun: 1.10 m/s (<=1.1m/s) AoV VTI: 35.20 cm (18-25cm) LVOT VTI: 29.30 cm LVOT Diameter: 2.00 cm (1.8-2.4cm) AoV Area, VTI: 2.62 cm2 (2.5-5.5cm2) AoV Area,Vmax: 2.42 cm2 (2.5-4.5cm2) AoV Dimensionless Index: 0.83 RIGHT VENTRICLE: TAPSE: 35.9 mm RV s' 0.15 m/s TRICUSPID VALVE/RVSP: Normal Ranges: Peak TR Velocity: 2.26 m/s RV Syst Pressure: 23.4 mmHg (< 30mmHg) PULMONIC VALVE: Normal Ranges: PV Accel Time: 158 msec (>120ms) PV Max Abiodun: 1.3 m/s (0.6-0.9m/s) PV Max P.6 mmHg [id number] Batsheva Morris MD, FACC Electronically signed on 08/05/2023 at 2:30:14 PM Final Normal [facility] US Heart TransthoracicOrdere d By: Batsheva Morris on 08-05-2023 Aortic Valve Area by Continuity of Peak Velocity 2.42 cm2 [facility] Work Phone: Aortic Valve Area by Continuity of VTI 2.62 cm2 [facility] Work Phone: AV mn grad 4.0 mmHg [facility] Work Phone: AV pk grad 8.2 mmHg [facility] Work Phone: AV pk abiodun 1.43 m/s [facility] Work Phone: LA vol index A/L 29.3 ml/m2 [facility] Work Phone: LV A4C EF 62.4 [facility] Work Phone: LV biplane EF 60 % [facility] Work Phone: LVIDd 5.28 cm [facility] Work Phone: LVOT diam 2.00 cm [facility] Work Phone: MV avg E/e' ratio 7.78 [facility] Work Phone: MV E/A ratio 0.88 [facility] Work Phone: RV free wall pk S' 15.40 cm/s [facility] Work Phone: RVSP 23.4 mmHg [facility] Work Phone: Tricuspid annular plane systolic excursion 3.6 cm [facility] Work Phone: [facility] Work Phone: US Heart Transthoracicon [place] [phone] TRANSTHORACIC ECHOCARDIOGRAM REPORT Patient Name: LILIANA Quiñones Physician: [id number] Morris MD, [facility] Study Date: 08/05/2023 Ordering Provider: [id number] ANA M SALINAS MRN/PID: [id number] Fellow: Nurse: Date of /Age: 10 1965 / 58 Mechanical Supervisor: Eli Pisano RDCS Gender: M Additional Staff: Height: 162.56 cm Admit Date: Weight: 90.72 kg Admission Status: Outpatient BSA / BMI: 1.96 m2 / 34.33 Department Location: [place] [address] Echo Lab Blood Pressure: 128 /73 mmHg Study Type: TRANSTHORACIC ECHO (TTE) COMPLETE Diagnosis/ICD: Bradycardia, unspecified-R00.1 Indication: Abnormal EKG, Pre-EP CPT Codes: Echo Complete w Full Doppler-[id number] Study Detail: The following Echo studies were performed: 2D, M-Mode, color flow and Doppler. Technically challenging study due to body habitus. PHYSICIAN INTERPRETATION: Left Ventricle: Left ventricular systolic function is normal, with an estimated ejection fraction of 60%. There are no regional wall motion abnormalities. The left ventricular cavity size is normal. Spectral Doppler shows an impaired relaxation pattern of left ventricular diastolic filling. Left Atrium: The left atrium is mildly dilated. Right Ventricle: The right ventricle is normal in size. There is normal right ventricular global systolic function. Normal RV size and function Normal RVSP. Right Atrium: The right atrium is normal in size. Aortic Valve: The aortic valve is trileaflet. There is no evidence of aortic valve regurgitation. The peak instantaneous gradient of the aortic valve is 8.2 mmHg. The mean gradient of the aortic valve is 4.0 mmHg. Mildly thickened aortic valve without significant stenosis or regurgitation. Mitral Valve: The mitral valve is normal in structure. There is no evidence of mitral valve regurgitation. Normal mitral valve. Tricuspid Valve: The tricuspid valve is structurally normal. There is mild tricuspid regurgitation. Pulmonic Valve: The pulmonic valve is structurally normal. There is no indication of pulmonic valve regurgitation. Pericardium: There is a trivial pericardial effusion. Aorta: The aortic root is normal. Densely calcified ascending aorta though not dilated and no evidence of mobile plaque. CONCLUSIONS: 1. Left ventricular systolic function is normal with a 60% estimated ejection fraction. 2. Spectral Doppler shows an impaired relaxation pattern of left ventricular diastolic filling. 3. Normal RV size and function Normal RVSP. 4. Normal mitral valve. 5. Mildly thickened aortic valve without significant stenosis or regurgitation. 6. Severe sinus bradycardia heart rate 33-43 throughout. QUANTITATIVE DATA SUMMARY: 2D MEASUREMENTS: Normal Ranges: Ao Root d: 2.70 cm (2.0-3.7cm) LAs: 4.50 cm (2.7-4.0cm) IVSd: 1.08 cm (0.6-1.1cm) LVPWd: 1.15 cm (0.6-1.1cm) LVIDd: 5.28 cm (3.9-5.9cm) LVIDs: 3.77 cm LV Mass Index: 117.9 g/m2 LV % FS 28.6 % LA VOLUME: Normal Ranges: LA Vol A4C: 56.3 ml (22+/-6mL/m2) LA Vol A2C: 55.2 ml LA Vol BP: 57.2 ml LA Vol Index A4C: 28.8ml/m2 LA Vol Index A2C: 28.2 ml/m2 LA Vol Index BP: 29.3 ml/m2 LA Area A4C: 19.6 cm2 LA Area A2C: 18.9 cm2 LA [place] A4C: 5.8 cm LA [place] A2C: 5.5 cm LA Volume Index: 27.0 ml/m2 AORTA MEASUREMENTS: Normal Ranges: Asc Ao, d: 2.90 cm (2.1-3.4cm) LV SYSTOLIC FUNCTION BY 2D PLANIMETRY (MOD): Normal Ranges: EF-A4C View: 62.4 % (>=55%) EF-A2C View: 55.6 % EF-Biplane: 59.7 % LV DIASTOLIC FUNCTION: Normal Ranges: MV Peak E: 0.83 m/s (0.7-1.2 m/s) MV Peak A: 0.94 m/s (0.42-0.7 m/s) E/A Ratio: 0.88 (1.0-2.2) MV e' 0.11 m/s (>8.0) MV lateral e' 0.11 m/s MV medial e' 0.09 m/s E/e' Ratio: 7.78 (<8.0) MITRAL VALVE: Normal Ranges: MV DT: 293 msec (150-240msec) AORTIC VALVE: Normal Ranges: AoV Vmax: 1.43 m/s (<=1.7m/s) AoV Peak P.2 mmHg (<20mmHg) AoV Mean P.0 mmHg (1.7-11.5mmHg) LVOT Max Abiodun: 1.10 m/s (<=1.1m/s) AoV VTI: 35.20 cm (18-25cm) LVOT VTI: 29 (more content not included)... Batsheva Alexander MD - 08/05/2023 [place] [address] TRANSTHORACIC ECHOCARDIOGRAM REPORT Patient Name: LILIANA BRIDGESTIRSO Reading Physician: [id number] Batsheva Morris MD, [facility] Study Date: 08/05/2023 Ordering Provider: [id number] ANA M SALINAS MRN/PID: [id number] Fellow: Nurse: Date of /Age: 10 1965 Mechanical Supervisor: Eli Pisano RDCS Gender: M Additional Staff: Height: 162.56 cm Admit Date: Weight: 90.72 kg Admission Status: Outpatient BSA / BMI: 1.96 m2 / 34.33 Department Location: [place] [address] Echo Lab Blood Pressure: 128 /73 mmHg Study Type: TRANSTHORACIC ECHO (TTE) COMPLETE Diagnosis/ICD: Bradycardia, unspecified-R00.1 Indication: Abnormal EKG, Pre-EP CPT Codes: Echo Complete w Full Doppler-[id number] Study Detail: The following Echo studies were performed: 2D, M-Mode, color flow and Doppler. Technically challenging study due to body habitus. PHYSICIAN INTERPRETATION: Left Ventricle: Left ventricular systolic function is normal, with an estimated ejection fraction of 60%. There are no regional wall motion abnormalities. The left ventricular cavity size is normal. Spectral Doppler shows an impaired relaxation pattern of left ventricular diastolic filling. Left Atrium: The left atrium is mildly dilated. Right Ventricle: The right ventricle is normal in size. There is normal right ventricular global systolic function. Normal RV size and function Normal RVSP. Right Atrium: The right atrium is normal in size. Aortic Valve: The aortic valve is trileaflet. There is no evidence of aortic valve regurgitation. The peak instantaneous gradient of the aortic valve is 8.2 mmHg. The mean gradient of the aortic valve is 4.0 mmHg. Mildly thickened aortic valve without significant stenosis or regurgitation. Mitral Valve: The mitral valve is normal in structure. There is no evidence of mitral valve regurgitation. Normal mitral valve. Tricuspid Valve: The tricuspid valve is structurally normal. There is mild tricuspid regurgitation. Pulmonic Valve: The pulmonic valve is structurally normal. There is no indication of pulmonic valve regurgitation. Pericardium: There is a trivial pericardial effusion. Aorta: The aortic root is normal. Densely calcified ascending aorta though not dilated and no evidence of mobile plaque. CONCLUSIONS: 1. Left ventricular systolic function is normal with a 60% estimated ejection fraction. 2. Spectral Doppler shows an impaired relaxation pattern of left ventricular diastolic filling. 3. Normal RV size and function Normal RVSP. 4. Normal mitral valve. 5. Mildly thickened aortic valve without significant stenosis or regurgitation. 6. Severe sinus bradycardia heart rate 33-43 throughout. QUANTITATIVE DATA SUMMARY: 2D MEASUREMENTS: Normal Ranges: Ao Root d: 2.70 cm (2.0-3.7cm) LAs: 4.50 cm (2.7-4.0cm) IVSd: 1.08 cm (0.6-1.1cm) LVPWd: 1.15 cm (0.6-1.1cm) LVIDd: 5.28 cm (3.9-5.9cm) LVIDs: 3.77 cm LV Mass Index: 117.9 g/m2 LV % FS 28.6 % LA VOLUME: Normal Ranges: LA Vol A4C: 56.3 ml (22+/-6mL/m2) LA Vol A2C: 55.2 ml LA Vol BP: 57.2 ml LA Vol Index A4C: 28.8ml/m2 LA Vol Index A2C: 28.2 ml/m2 LA Vol Index BP: 29.3 ml/m2 LA Area A4C: 19.6 cm2 LA Area A2C: 18.9 cm2 LA [place] A4C: 5.8 cm LA [place] A2C: 5.5 cm LA Volume Index: 27.0 ml/m2 AORTA MEASUREMENTS: Normal Ranges: Asc Ao, d: 2.90 cm (2.1-3.4cm) LV SYSTOLIC FUNCTION BY 2D PLANIMETRY (MOD): Normal Ranges: EF-A4C View: 62.4 % (>=55%) EF-A2C View: 55.6 % EF-Biplane: 59.7 % LV DIASTOLIC FUNCTION: Normal Ranges: MV Peak E: 0.83 m/s (0.7-1.2 m/s) MV Peak A: 0.94 m/s (0.42-0.7 m/s) E/A Ratio: 0.88 (1.0-2.2) MV e' 0.11 m/s (>8.0) MV lateral e' 0.11 m/s MV medial e' 0.09 m/s E/e' Ratio: 7.78 (<8.0) MITRAL VALVE: Normal Ranges: MV DT: 293 msec (150-240msec) AORTIC VALVE: Normal Ranges: AoV Vmax: 1.43 m/s (<=1.7m/s) AoV Peak P.2 mmHg (<20mmHg) AoV Mean P.0 mmHg (1.7-11.5mmHg) LVOT Max Abiodun: 1.10 m/s (<=1.1m/s) AoV VTI: 35.20 cm (18-25cm) LVOT VTI: 29.30 cm LVOT Diameter: 2.00 cm (1.8-2.4cm) AoV Area, VTI: 2.62 cm2 (2.5-5.5cm2) AoV Area,Vmax: 2.42 cm2 (2.5-4.5cm2) AoV Dimensionless Index: 0.83 RIGHT VENTRICLE: TAPSE: 35.9 mm RV s' 0.15 m/s TRICUSPID VALVE/RVSP: Normal Ranges: Peak TR Velocity: 2.26 m/s RV Syst Pressure: 23.4 mmHg (< 30mmHg) PULMONIC VALVE: Normal Ranges: PV Accel Time: 158 msec (>120ms) PV Max Abiodun: 1.3 m/s (0.6-0.9m/s) PV Max P.6 mmHg [id number] Batsheva Morris MD, [facility] Electronically signed on 08/05/2023 at 2:30:14 PM Final [facility] Work Phone: XR CHEST 1 VIEWon 08-05-2023 XR CHEST 1 VIEW Interpreted By: Salvatore Clark, STUDY: XR CHEST 1 VIEW INDICATION: Signs/Symptoms:post implant. COMPARISON: None ACCESSION NUMBER(S): [id number] ORDERING CLINICIAN: ANA M KUMARI FINDINGS: No consolidation, effusion, edema, or pneumothorax. Pacemaker placed without pneumothorax. Position satisfactory. IMPRESSION: Status post pacemaker placement. Signed by: Salvatore Clark 08/05/2023 6:10 PM Dictation workstation: [id number] [facility] Comment on above: Order Comment: Vahe heard. XR Chest Single viewon 08-04 Status post pacemaker placement. Signed by: Salvatore Clark 08/05/2023 6:10 PM Dictation workstation: [id number] [facility] Interpreted By: Salvatore Clark, STUDY: XR CHEST 1 VIEW INDICATION: Signs/Symptoms:post implant. COMPARISON: None ACCESSION NUMBER(S): [id number] ORDERING CLINICIAN: ANA M KUMARI FINDINGS: No consolidation, effusion, edema, or pneumothorax. Pacemaker placed without pneumothorax. Position satisfactory. [facility] Salvatore Clark MD - 08/05/2023 Interpreted By: Salvatore Clark, STUDY: XR CHEST 1 VIEW INDICATION: Signs/Symptoms:post implant. COMPARISON: None ACCESSION NUMBER(S): [id number] ORDERING CLINICIAN: ANA M KUMARI FINDINGS: No consolidation, effusion, edema, or pneumothorax. Pacemaker placed without pneumothorax. Position satisfactory. IMPRESSION: Status post pacemaker placement. Signed by: Salvatore Clark 08/05/2023 6:10 PM Dictation workstation: [id number] [facility] Work Phone: Radiology Study observation (narrative) [facility] Work Phone: XR Chest Single viewOrdered By: Salvatore Clark on 08-05-2023 [facility] Work Phone: ECG 12 lead (Clinic Performe d)on 07-22-2023 EKG shows marked sinus bradycardia rate of 41 bpm QRS ration 100 ms QT corrected he had a 91 ms. Rhythm strip shows the same pattern. [facility] Work Phone: CT LUNG CANCER SCREENINGon 0 [...] by: BATSHEVA ALVARADO Date: 2022-07-15 12:10 Normal [facility] Office Visit (Cardiology)on 07-14-2022 Follow-up visit Diagnoses/Problems [...] we can help. You may also call [phone] for free resources and assistance.; Status:Complete - Retrospective Authorization; Done: [id number] Patient Instructions Please bring all medicines, vitamins, [...] ischemic evaluation. He underwent cardiac catheterization in [place] which showed no significant obstructive disease 3. [...] Oral Capsule Delayed ReleaseTAKE 1 CAPSULE Daily oxyCODONE-Acetaminop hen 7.5-325 MG Oral TabletTAKE 1 TABLET BY MOUTH FOUR TIMES A DAY NEEDED Qcelrh0n at bedtime Singulair 10 MG Oral TabletTAKE [...] Recorded: 14Jul2022 10:57AM Heart Rate34, L Radial Hnhmtwgg384, LUE, Sitting Vkyvksyyd49, LUE, Sitting Height5 ft 4 in Mykfbs951 lb BMI Gqjegzogmh27.96 kg/m2 BSA Calculated1.92 Tobacco Usea) Yes Patient encouraged to st (more content not included)... Normal [facility] Tobacco Screening.on 023 Adult depression screening assessment No [facility] fruux DO Work Phone: Fall risk assessment a) No falls within the last year [facility] fruux DO Work Phone: Tobacco use status CPHS a) Yes [facility] [employer] DO Work Phone: Tobacco Screening. Yes [facility] [address] DO Work Phone: CT ABD/PELV W CONon 06-11-[address] ABD/PELV W CON EXAMINATION: CT ABD/PELV [...] by: FLEX JACOBS Date: 2022-06-11 10:06 Normal [facility] CBC AUTO DIFFon 05-07-2022 BASO # 0.1 103/ul Normal 0.0-0.1 [facility] Comment on above: Performed By: #### C BC #### [facility] [address] [place], [place] [address] Dr. Britt Mendoza Basophils/100 WBC (Bld) 1.6 % Normal 0.2-2.0 [facility] Comment on above: Performed By: #### C BC #### [facility] [address] [place], [place] [address] Dr. Brtit Mendoza EO # 0.2 103/ul Normal 0.0-0.7 [facility] Comment on above: Performed By: #### C BC #### [facility] [address] [place] [address] Dr. Britt Mendoza Eosinophils/100 WBC (Bld) 3.0 % Normal 0.9-7.0 [facility] Comment on above: Performed By: #### C BC #### [facility] [address] [place] [address] Dr. Britt Mendoza Erythrocyte distribution width (RBC) [Ratio] 12.4 % Normal 11.0-15.0 [facility] Comment on above: Performed By: #### C BC #### [facility] [address] [place] [address] Dr. Britt Mendoza Hematocrit (Bld) [Volume fraction] 43.2 % Normal 42.0-54.0 [facility] Comment on above: Performed By: #### C BC #### [facility] [address] [place] [address] Dr. Britt Mendoza Hemoglobin (Bld) [Mass/Vol] 14.7 g/dL Normal 14.0-18.0 [facility] Comment on above: Performed By: #### C BC #### [facility] [address] [place] [address] Dr. Britt Mendoza IG # 0.11 10e3/ul Critically high 0.00-0.03 [facility] Comment on above: Performed By: #### C BC #### [facility] [address] [place] [address] Dr. Britt Mendoza IG % 1.4 % Critically high 0.0-0.5 [facility] Comment on above: Performed By: #### C BC #### [facility] [address] [place] [address] Dr. Britt Mendoza LYMPH # 1.7 103/ul Normal 1.2-3.8 [facility] Comment on above: Performed By: #### C BC #### [facility] [address] [place] [address] Dr. Britt Mendoza Lymphocytes/100 WBC (Bld) 21.6 % Normal 20.5-60.0 [facility] Comment on above: Performed By: #### C BC #### [facility] [address] [place] [address] Dr. Britt Mendoza MANUAL DIFF REQ NO Normal [facility] Comment on above: Performed By: #### C BC #### [facility] [address] [place] [address] Dr. Britt Mendoza MCH (RBC) [Entitic mass] 31.2 pg Normal 25.9-34.0 [facility] Comment on above: Performed By: #### C BC #### [facility] [address] [place] [address] Dr. Britt Mendoza MCHC (RBC) [Mass/Vol] 34.0 g/dL Normal 29.9-35.2 [facility] Comment on above: Performed By: #### C BC #### [facility] [address] [place] [address] Dr. Britt Mendoza MCV (RBC) [Entitic vol] 91.7 fL Normal 80.0-94.0 [facility] Comment on above: Performed By: #### C BC #### [facility] [address] [place] [address] Dr. Britt Mendoza MONO # 0.5 103/ul Normal 0.3-0.8 [facility] Comment on above: Performed By: #### C BC #### [facility] [address] [place] [address] Dr. Britt Mendoza Monocytes/100 WBC (Bld) 6.8 % Normal 1.7-12.0 [facility] Comment on above: Performed By: #### C BC #### [facility] [address] [place] [address] Dr. Britt Mendoza NEUT # 5.0 103/ul Normal 1.4-6.5 [facility] Comment on above: Performed By: #### C BC #### [facility] [address] [place] [address] Dr. Britt Mendoza Neutrophils/100 WBC (Bld) 65.6 % Normal 43.0-75.0 [facility] Comment on above: Performed By: #### C BC #### [facility] [address] [address] [address] Britt Mendoza Platelet mean volume (Bld) [Entitic vol] 9.7 fL Normal 9.5-13.5 [facility] Comment on above: Performed By: #### C BC #### [facility] [address] [address] [address] Britt Mendoza PLT 244 103/ul Normal 150-450 [facility] Comment on above: Performed By: #### C BC #### [facility] [address] [address] [address] Britt Mendoza RBC 4.71 106/ul Normal 4.70-6.10 [facility] Comment on above: Performed By: #### C BC #### [facility] [address] [address] [address] Britt Mendoza WBC 7.6 103/ul Normal 4.0-11.0 [facility] Comment on above: Performed By: #### C BC #### [facility] [address] [address] [address] Britt Mendoza GLYCOHEMOGLOBIN A1Con 2021 ADA RECOMMENDATION SEE BELOW Normal [facility] Comment on above: Result Comment: ADA RECOMMENDED LIMIT 4.0 - 6.0 ADA THERAPEUTIC TARGET < 7.0 ACTION SUGGESTED > 7.0 Performed By: #### A 1C ####[facility] [address] [address]Dr. Britt Mendoza Glucose [Mass/Vol] 117 mg/dL Normal [facility] Comment on above: Performed By: #### A 1C ####[facility] [address] [id number]. Britt Mendoza HbA1c (Bld) [Mass fraction] 5.7 % Normal 4.5-6.2 [facility] Comment on above: Performed By: #### A 1C ####[facility] [address] [address]Dr. Britt Mendoza LIPID PROFILEon 05-07-2022 CHOL-HDL RATIO NORM SEE BELOW Normal [facility] Comment on above: Result Comment: 3.3 - 4.4 LOW RISK 4.4 - 7.1 AVERAGE RISK 7.1 - 11.0 MODERATE RISK >11.0 HIGH RISK Performed By: #### B MP, LIVER, LIPID, TSH ####[facility] [address] [id number]. Britt Mendoza Cholesterol [Mass/Vol] 235 mg/dL Critically high <=200 [facility] Comment on above: Performed By: #### B MP, LIVER, LIPID, TSH ####[facility] [address] [id number]. Britt Mendoza Cholesterol in HDL [Mass/Vol] 40 mg/dL Normal 40-60 [facility] Comment on above: Performed By: #### B MP, LIVER, LIPID, TSH ####[facility] [address] [id number]. Britt Mendoza Cholesterol in LDL [Mass/Vol] 156.8 mg/dL Normal [facility] Comment on above: Performed By: #### B MP, LIVER, LIPID, TSH ####[facility] [address] [id number]. Britt Mendoza Cholesterol.total/Viola sterol in HDL [Mass ratio] 5.9 {ratio} Normal [facility] Comment on above: Performed By: #### B MP, LIVER, LIPID, TSH ####[facility] [address] [id number]. Britt Mendoza HDL NORMAL > or = 60 mg/dl - LOW CARDIOVASCULAR RISK <40 mg/dl - HIGH CARDIOVASCULAR RISK Normal [facility] Comment on above: Performed By: #### B MP, LIVER, LIPID, TSH ####[facility] [address] [id number]. Britt Mendoza LDL CALC NORMAL SEE BELOW Normal [facility] Comment on above: Result Comment: <100 mg/dl OPTIMAL 100 - 129 mg/dl NEAR OR ABOVE OPTIMAL 130 - 159 mg/dl BORDERLINE HIGH 160 - 189 mg/dl HIGH >190 mg/dl VERY HIGH Performed By: #### B MP, LIVER, LIPID, TSH ####[facility] [address] [address]Dr. Britt Mendoza Triglyceride [Mass/Vol] 191 mg/dL Critically high <=150 [facility] Comment on above: Performed By: #### B MP, LIVER, LIPID, TSH ####[facility] [address] [address]Dr. Britt Mendoza VLDL CALC 38.2 mg/dL Normal [facility] Comment on above: Performed By: #### B MP, LIVER, LIPID, TSH ####[facility] [address] [address]Dr. Britt Mendoza LIVER PROFILEon 05-07-2022 Albumin [Mass/Vol] 3.6 g/dL Normal 3.4-5.0 [facility] Comment on above: Performed By: #### B MP, LIVER, LIPID, TSH ####[facility] [address] [address]Dr. Britt Mendoza Albumin/Globulin [Mass ratio] 1.1 {ratio} Normal [facility] Comment on above: Performed By: #### B MP, LIVER, LIPID, TSH ####[facility] [address] [place], [place] [address]Dr. Britt Mendoza ALP [Catalytic activity/Vol] 84 U/L Normal 46-116 [facility] Comment on above: Performed By: #### B MP, LIVER, LIPID, TSH ####[facility] [address] [address]Dr. Britt Mendoza ALT [Catalytic activity/Vol] 34 U/L Normal 16-63 [facility] Comment on above: Performed By: #### B MP, LIVER, LIPID, TSH ####[facility] [address] [address]Dr. Britt Mendoza AST [Catalytic activity/Vol] 21 U/L Normal 15-37 [facility] Comment on above: Performed By: #### B MP, LIVER, LIPID, TSH ####[facility] [address] [address]Dr. Britt Mendoza BILI, CONJUGATED 0.1 mg/dL Normal 0.0-0.2 [facility] Comment on above: Performed By: #### B MP, LIVER, LIPID, TSH ####[facility] [address] [address]Dr. Britt Mendoza Bilirubin [Mass/Vol] 0.4 mg/dL Normal 0.2-1.0 [facility] Comment on above: Performed By: #### B MP, LIVER, LIPID, TSH ####[facility] [address] [address]Dr. Britt Mendoza Globulin (S) [Mass/Vol] 3.4 g/dL Normal [facility] Comment on above: Performed By: #### B MP, LIVER, LIPID, TSH ####[facility] [address] [address]Dr. Britt Mendoza Protein [Mass/Vol] 7.0 g/dL Normal 6.4-8.2 [facility] Comment on above: Performed By: #### B MP, LIVER, LIPID, TSH ####[facility] [address] [address]DrAtiya Mendoza PROF CHEM 8 (BAS METB)on Anion gap [Moles/Vol] 13.8 mmol/L Normal Th [facility] Comment on above: Result Comment: Prev iously reported as: -2.3 On 05/07/2022 13:50 By DM9 Performed By: #### B MP, LIVER, LIPID, TSH #### [facility] [address] [address] [address] Britt Mendoza Calcium [Mass/Vol] 9.2 mg/dL Normal 8.5-10.1 [facility] Comment on above: Performed By: #### B MP, LIVER, LIPID, TSH #### [facility] [address] [address] [address] Britt Mendoza Chloride [Moles/Vol] 99 mmol/L Normal 98-107 [facility] Comment on above: Result Comment: Prev iously reported as: 106 On 05/07/2022 13:50 By DM9 Performed By: #### B MP, LIVER, LIPID, TSH #### [facility] [address] [address] [address] Britt Mendoza CO2 [Moles/Vol] 27.3 mmol/L Normal 21.0-32.0 [facility] Comment on above: Result Comment: Prev iously reported as: 29.2 On 05/07/2022 13:50 By DM9 Performed By: #### B MP, LIVER, LIPID, TSH #### [facility] [address] [address] [address] Britt Mendoza Creatinine [Mass/Vol] 1.12 mg/dL Normal 0.70-1.30 [facility] Comment on above: Performed By: #### B MP, LIVER, LIPID, TSH #### [facility] [address] [address] [address] Britt Mendoza EGFR-AF STATELESS >60 Normal >=60 [facility] Comment on above: Performed By: #### B MP, LIVER, LIPID, TSH #### [facility] [address] [address] [address] Britt Mendoza EGFR-NON AF STATELESS >60 Normal >=60 [facility] Comment on above: Performed By: #### B MP, LIVER, LIPID, TSH #### [facility] [address] [address] [address] Britt Mendoza Glucose [Mass/Vol] 108 mg/dL Critically high 74-106 [facility] Comment on above: Performed By: #### B MP, LIVER, LIPID, TSH #### [facility] [address] [address] [address] Britt Mendoza Potassium [Moles/Vol] 4.1 mmol/L Normal 3.5-5.1 [facility] Comment on above: Result Comment: Prev iously reported as: 3.9 On 05/07/2022 13:50 By DM9 Performed By: #### B MP, LIVER, LIPID, TSH #### [facility] [address] [address] [address] Britt Mendoza Sodium [Moles/Vol] 136 mmol/L Normal 136-145 [facility] Comment on above: Result Comment: Prev iously reported as: 129 On 05/07/2022 13:50 By DM9 Performed By: #### B MP, LIVER, LIPID, TSH #### [facility] [address] [address] [address] Britt Mendoza Urea nitrogen [Mass/Vol] 26.0 mg/dL Critically high 7.0-18.0 [facility] Comment on above: Performed By: #### B MP, LIVER, LIPID, TSH #### [facility] [address] [address] [address] Britt Mendoza Urea nitrogen/Creatinine [Mass ratio] 23.2 mg/mg Normal [facility] Comment on above: Performed By: #### B MP, LIVER, LIPID, TSH #### [facility] [address] [address] [address] Britt Mendoza TSHon 05-07-2022 TSH 0.828 uIU/mL Normal 0.358-3.740 [facility] Comment on above: Performed By: #### B MP, LIVER, LIPID, TSH ####[facility] [address] [address]Dr. Britt Mendoza VITAMIN D 25 OHon 05-07-2022 VIT D 25-OH 45.6 ng/mL Normal [facility] Comment on above: Performed By: #### V BRENDAN, PSASC #### [facility] [address] [place] [address] Dr. Britt Mendoza VIT D RANGES SEE BELOW Normal [facility] Comment on above: Result Comment: <20 ng/mL Vit D deficient 20 - <30 ng/mL Vit D insufficient 30 - 100 ng/mL Vit D sufficient >100 ng/mL Potential Toxicity Performed By: #### V BRENDAN, PSASC #### [facility] [address] [address] [address] Britt Mendoza Covid-19 PCR (CVDTBH)on SARS-CoV-2 (COVID-19) RNA KATT+probe Ql (Unsp spec) Detected Critically abnormal NOT DETECTED [facility] Comment on above: Result Comment: This test is not yet approved or cleared by the [place] FDA. When there are no FDA-approved or cleared tests available, and other criteria are met, FDA can make tests available under an emergency access mechanism called an Emergency Use Authorization (EUA). The EUA for this test is supported by the [place] of Health and Human Service's declaration that [...] longer be used). Performed By: #### [facility] ####[facility] [address] [address]Dr. Britt Mnedoza Cardiac Stress Test 2021 Cardiac Stress Test [address], [address] [address] Exercise Stress Test Patient Name: LILIANA MICHAELS Ordering Physician: [id number] Ty MD Study Date: 02/15/2022 Reading Physician: Melanie Ty MD MRN/PID: [id number] Supervising Physician: [id number] Yovani Rivera MD Accession/Order#: [id number] Referring Physician: VALENTINO TY Date of : 1965 PCP: Ishmael Simon Gender: M Fellow: Height: 162.56 cm Nurse: Yunior Bhatti RN Weight: 81.65 kg Mechanical Supervisor: SAEID BSA: 1.87 m2 Technologist: BMI: 30.90 kg/m2 Additional Staff: Age: 56 years cc report to: Patient Location: report to: [id number] Ty MD Study Type: Cardiac Stress Test Diagnosis/ICD: R94.31-Abnormal electrocardiogram [ECG] [EKG]; R00.1-Bradycardia, unspecified; R06.00-Dyspnea, unspecified Indication: Dyspnea Procedure/CPT: Stress Test Interpretation-19100 ; Stress Test Supervision-[id number] Falls Risk: Low: Patient has low risk [...] nonspecific ST-T changes. Stress Stage Data: + +- --+------+-------+ HR Sys BP Cornelius BP + +- --+------+-------+ Baseline Resting 44 120 68 + +- --+------+-------+ Baseline Standing 44 120 68 + +- --+------+-------+ Stage I 80 142 76 + +- --+------+-------+ Stage II 96 168 78 + +- --+------+-------+ Stage III 125 174 82 + +- --+------+-------+ Recovery ECG: The heart rate recovery was normal. + +---+-- ----+-------+ HR Sys BP Cornelius BP + +---+-- ----+-------+ Recovery I 125 176 80 + +---+-- ----+-------+ Recovery II 104 172 76 + +---+-- ----+-------+ Recovery III 55 146 72 + +---+-- ----+-------+ Recovery IV 56 118 68 + +---+-- ----+-------+ Summary: 1. Submaximal graded exercise stress test [...] 7. An element of chronotropic incompetency noted. [id number] Valentino Ty MD Electronically signed on 02/16/2022 at 2:52:20 PM Final Normal [facility] Cardiac Stress Test Please click on the link to view the study images [facility] Work Phone: Cardiac Stress Test [facility] DO Work Phone: Office Visit (Cardiology)on [...] bradycardia Cardiac Stress Test; Status:Hold For - Scheduling,Retrospec tive Authorization; Requested for:[id number]; Class 1 obesity with body mass index (BMI) of 30.0 to 30.9 in adult Healthy Weight Tips; Status:Complete - Retrospective Authorization; Done: [id number] Some eating tips that can help you lose weight.; Status:Complete - Retrospective Authorization; Done: [id number] Sinus bradycardia You need to stop smoking. Though it is not easy, more than half of all adult smokers have quit. We encourage you to write down all the reasons you should quit smoking and set a quit date for yourself. Ask us how we can help. You may also call 2-293-OKZNNOW for free resources and assistance.; Status:Complete - Retrospective Authorization; Done: [id number] SocHx: Current smoker Continue with our present treatment plan.; Status:Complete - Retrospective Authorization; Done: [id number] Tobacco Use Screening; Status:Complete; Done: [id number] Patient Instructions Please bring all medicines, vitamins, [...] This led to a cardiac evaluation in [place] and its not clear to me whether [...] Oral Capsule Delayed ReleaseTAKE 1 CAPSULE Daily Wznnrj3s at bedtime Sin (more content not included)... Normal [facility] Tobacco Screening.on 022 Adult depression screening assessment No [facility] [address] 600 DO Work Phone: Fall risk assessment a) No falls within the last year [facility] [address] 600 DO Work Phone: Tobacco use status [facility] a) Yes M [facility] 600 DO Work Phone: Tobacco Screening. Yes [facility] 600 DO Work Phone: Covid-19 PCR (CVDTBH)on SARS-CoV-2 (COVID-19) RNA KATT+probe Ql (Unsp spec) Not detected Normal NOT DETECTED [facility] Comment on above: Result Comment: This test is not yet approved or cleared by the [place] FDA. When there are no FDA-approved or cleared tests available, and other criteria are met, FDA can make tests available under an emergency access mechanism called an Emergency Use Authorization (EUA). The EUA for this test is supported by the [place] of Health and Human Service's (HHS's) declaration [...] consistent with SARS-CoV-2. Performed By: #### C [facility] #### [facility] [address] [place] [address] Dr. Britt Mendoza Covid-19 PCR (CVDTBH)on 11-07 SARS-CoV-2 (COVID-19) RNA KATT+probe Ql (Unsp spec) Not detected Normal NOT DETECTED [facility] Comment on above: Result Comment: This test is not yet approved or cleared by the [place] FDA. When there are no FDA-approved or cleared tests available, and other criteria are met, FDA can make tests available under an emergency access mechanism called an Emergency Use Authorization (EUA). The EUA for this test is supported by the [place] of Health and Human Service's (HHS's) declaration [...] consistent with SARS-CoV-2. Performed By: #### C [facility] ####[facility] [address] [place], [place] [address]An. Britt Mendoza XR CHEST 2 Von 10-01-2021 XR CHEST 2 V EXAMINATION: XR CHEST 2 V HISTORY: Rib pain ; left [...] by: FLEX JACOBS Date: 2021-10-01 09:30 Normal [facility] Ambulatory Clinical Summaryo n 03-05-2021 Ambulatory Clinical Summary {[id number]}CD:[id number] Normal [facility] Historical Records Officeon 03-05-2021 Historical Records Office [id number] #1.00CD:127 Normal [facility] Patient Educationon 20 21 Patient Education Urology Erectile Dysfunction Erectile [...] these instructions at home: Medicines ? Take yxoo-rsn-tmapqxh and prescription medicines only as told by [...] of your (more content not included)... Normal [facility] Urology Office/Clinic Noteon 03-05-2021 Urology Office/Clinic Note Chief Complaint OV for ED HPI Staff Pt is here for ED sx. Pt was last seen by DLS in 2018. S/P Urolift 09/14/2018, S/P Cysto [...] order. Ordered: Office Visit Level 4 Est 05059 2. Hypogonadism male (E29.1: Testicular hypofunction) noted in hx. testosterone 10/16/18 - (normal range 264-916). however pt reports good energy, strength, stamina, and good interest in sex. lost 60# over the last couple years with diet. advised that testosterone won't necessarily improve his ED and since he's not c/o any sx associated with low T we will hold off on checking/treating at this time. Ordered: Office Visit Level 4 Est 96608 3. BPH with urinary obstruction (N40.1: Benign prostatic hyperplasia with lower urinary tract symptoms) s/p Urolift September 2018. Pt is currently taking no bladder/prostate medication and is mostly satisfied with overall symptom control. has nocturia but attributes this to diuretics. Pt prefers to continue with no changes at this time. PCP checking PSAs per pt. Ordered: Office Visit Level 4 Est 73774 Orders: Urnls Dip Stick Auto w/o Microscopy POC 69897 offered f/u 1 yr but pt prefers PRN. Total time spent reviewing previous notes/results/client server programmer al documents, preparing the chart, conducting the encounter with the patient and family, ordering tests/medications, and documenting the encounter was 30 minutes. Follow-up With When Contact Information ITA SLOAN, SIMONE Priest [address] [place] [address]- Additional Instructions: Patient Education Erectile Dysfunction Problem [...] inhalation powde (more content not included)... Normal [facility] Comment on above: Result Comment: Elec tronically Signed By: TOMEKA SANCHEZ PA-C\.br\Date and Time Signed: 03/05/21 12:24 EDT MRI PELVIS WO CONTRASTon MRI PELVIS WO CONTRAST [facility] Department of Radiology [address] [place] [id number] Patient Name: LILIANA MICHAELS : 1965 Sex: M Age: Race: White Pt. Location: 18 Patient Status: Ordered Date: 09/10/2020 3:35:00 PM Completed Date: 10/03/2020 08:34 AM Requesting Provider: SIMONE RUIZ Attending Provider: Report Copy To: Signs & Symptoms: R10.2 Pelvic and perineal pain I10 History: Lenore, Right FOREIGN per clinic will fax HOME [facility]oses auth# [id number] 09/16/20-10/17/20 cpt code 21984 *mla Comments: Right groin to r/o an [...] of the lumbosacral spine. Electronically signed: Dinh Miller. Transcribed by: [email or web address], User Resident: Electronically Signed by: DINH MILLER @ 10/03/2020 09:57 AM Normal [facility] Comment on above: Order Comment: Right groin to r/o an adductor tear; iliopsoas bursitis or injury Operative Reporton Operative Report MR#: [id number] S [facility] Pt. Name: Liliana Michaels Room #: PMC [...] P/Simone Ruiz MD Date Trans: 09/10/2020 11:40 P/eva DN_JN:[id number] cc: Ishmael Simon M.D. [address] [facility] [address] [facility] Coding Summary.on 09-01-2020 Coding Summary. CD:[id number] Gh0bWw+PGhlYWQ+PE1FV JIwC57xsGGduM3LG9vJY T4ACJDYELGGYU6HJL2dj HD2COdxW9RypyIp LaqzpLYtTQ08FKx8ZUP0 gHlsXItugJ3xtBMcC4q2 XaHkBX10iK87HKodBTDj FeU3VjAjulkkhTBh E7apRdCofHUiPmu+PHRh YmxlIHdpZHRoPScxMDAl KhHrjXlkKX8iBc6zTXGh LWNvbGxhcHNlOiBj j1bcPDZbRWulIG3noGiu E4LejBS2JWNno7h7Oe46 dHI+JNXeLNX7nVtiAFyj t380UrSxw5iuZHF9 lLUiVAquFAM9Y39ky7T7 NEBnJFEoZEP1uBW3jM0l oEtljliiI0SloLXdBvN3 LZQ9lEBonC0lkLoi xkzhjJ4zHrr+R01DIR0A SQQDZZ9TCqe1H8YeZfcp dHI+XF85AEBeKP28uIVy jMEtd5pnnOe8KlGa NMDfKFP4vMcgOOlto7Cx DKGvN67luDPon3F6CWJq lEldbUNdVdEqwMY8sX1s EUwkroaol6geraee Zjaqm5vecw28tP13C30p TJpcFKGjRNR5SAEzKZPx oDcleg5vgH9iXv8+IDxj w2zyn3flhTs4LiHv DOCpceYadYniBZZ9g8Yf Ay33G6FpmXykz5VnEus6 tm43kYChx2B3xUY4UXmj XPNglK2xRQdhUnB8 CTRdOtTmbE18dBMuMVrn Wf0zxJoqaBhxAF9lFDGv wlxcBPBjhZ5vRFUvsSRa oBczPF3yWKHyyaoe a302MlEiFGN1SOUheYVz M9XxgK2oVtCcSVHhFQNq N6SbzZPrDGdcW817KFch WmX9ZEQwjqFjG5Qr EZTzbFfeHdB3d7J8Ba2X v3RntrqwBGQ8NOtkVIB2 AwZ9JsAdKuH8V5AzLsd8 GHPgfDqvHZ8mF4Ec IMDjcpvesywruYJ2ZCNr OWIvjM54gZJoYGeiOr9k g4M7y780YBXyDKWmtJ97 Id4svJqpOJPntYDL aB7xndtmh3cmwzhlHoXf XFApCRy5EHz4IBEqsLxl KvNxGJG3YpK2LYG4xFXi pV7imQltgmdtcX3r Oyc+N29nzE5zDMG1ENK7 ojbaAKCgdmDoWC57II51 S3EpIevbxDSifJN+PGRp xpUzqLzpQU1fBkBu d3pmh3AfYJlnZ9NnXSSp HXywSch7JLFuYDE2jTA7 mN5bMJZrJVyrg9C3uSD4 F7YixcKggm9xg8py DNZvAKtbR46ijBOqv5O3 QIWiqRD3EAHbzMdgDtUt dZ85Mdv+RMAblOerf5Ps Zlgth8idd9hcgEr4 IjMwJSIgdmFsaWduPSJ0 n4XkYk40M57zWOgcHFPn EHUhPRKbEJJzlSurml0k jO4gAq2+PGNvbCB3 dGE5pC9iDPWeYnB2YRtp U016QuPesGZwEfxpe8nh q3crpFy8FlTkIODczjHq jMgwZYK5l9DoYl44 S54rAXnwEFIdCTYmBPNf QMPjjBtcwx8znY0dXe1+ TT8og9mkxr83dW55tXF+ ZTLcECI1ySmoIAqg FDMsxK3xVPxoRfB8OKVb RxHrgI03lURyCHksBe1h zCeqyAxmVP9fWAWblwgt z603MdImm1twCQLt qYVhJQllIMO0I40gk2U1 VOZsYPQiCIC2pHO3eT9h bGlnbjogbGVmdDsgdmVy xVqfPDleDDcfV397 IHRvcDsnPlBhdGllbnQg KkJnAMu6W8PwXos6OHIq vKuuIZ0hkWXhIRomNo4g kWewnIwnXB1lXOSk gwrhq972YaEtv4cdSILy nYFvXXdpVRX8M28qp2F9 UGUoGDTqDGT9jUW4bY3b bGlnbjogbGVmdDsg cjQdjXvoJOcmPCqgB140 IHRvcDsnPkJpcnRoIERh wIC6OM48WF45eTMrn7X1 tYI7U7TvHQBlerwx pyyoaUO2PUDmYMOlgH74 Hp2rxNrnSx5wUBKaIMF7 SSKnyXZeD4VuiA9nYaBy NESsDGWyX0RhoXZd ZNnnG198YCtvLsQ1PJJd doHwR7DcJBJwxDqkWcC1 d2G3Eb3KO6N1FX00NW29 cZGjp6C7wCS2L8Uq PPWhcfnyflegtWD3ZYJf WVEfrD74Qr8buIivDr8j QXQkZKC9NXOloMCdN4Ku pD1lJeZeHFIsATXc I7NzxLYcNNjyD735SOyr TnD8VKDxluPoG3IbKGPx wWgcJwF9f4F9Ot6ITBk5 RX53NL24kFPqx4O1 dHN6K1BdSTQfmovgxvdl dWN9QTKzNJLdgR83Iy6j fSfbPp2dFHCjQZO3WIOv zJYaW6TgtP6qBrBn QPEvYGXaM5TohWVaNDcl O510SLieDsU0DOAhmbNt F6FeMOPdzVmzPcR0d5X2 Ou5LORIpLR82EJN5 kBF3GP61YX43C2UxNzsl dGFibGU+PHRhYmxlIHdp ZHRoPScxMDAlJyBzdHls AH1nBj9tUDGoANRr zDrehRGuInNgg8yfZNXn BPzlBE8qsQegO9QdoMD1 MEYea5x5Vu44F79oN8No dXA+BDQjmIA6fOV4 nT4xGfQqBeI4IGqgS911 UvWluZVbIznnh6zuj0ex kPu8AoU2VLJhucZbvYbz NRK9b3BrWr81B11y IHdpZHRoPSIxNSUiIHZh nAwwdo0dvZ2dMt5+PGNv oFF3rTJ7vU4vEkHgRxJ0 TQouV705ZjGusMUg Tbeqn8gjb4zucOy2TxZw HZTctkIhuPlsGRT1q6Na Ov69P3FmpEgqq1QdNif9 ns76xVTeh7K0gVB2 Z6PpQBSoaeffsTGfhSye PP8uWEYjcldvCJRmiP6q CPKlZ2w2IkZqHhK5ZBkj Z0FwzrC0SESuuVJn MOxuDUT5C79ng8J3CAYc QSYpDDM9bSB3iT9tiHua bjogbGVmdDsgdmVydGlj AWzxSXfzA286HGOe fCnlGEHwyV0sUMJwsABj tOezHI2dRPWwdmteZpcT FI0EZotmXgHPZHunPIzy dGQ+VATnAWO1vCfo MIlaLAExeL1hZJWcG7m8 HnZzSpR7GQsyZ8QwVOQb jlhaWu79bK6dCoJiIeT9 QDbbF3UgjaE0JRFf aFLaGDfaLBE6T39wb8V8 QJGePEZyVNO2bZB2pC1q bGlnbjogbGVmdDsgdmVy uFdoWGmmJEwwM842 ECKorGaoVfHhYsZ6RnN2 KjM7S9OuAax4FODgzPnf QI8bwQHvNRrzHc1jpMmt uMboAC4bCXSsrsuh FRXyzM7rPORcsOEfuHnn AY9uGQOsxsbiq379SxLq URK9HNNweLCiL0IjrT9l QsEbHEXgIOKzU1Yx qDOfLCggQ910AJnnSqS0 TNNposUjQ6GbCHRflJjo GhJ7d8Q5Wa70EyFRSCFz czwvdGQ+PHRkIHN0 zJuuYEyrGSTllO5fDQGu A3b3QiTcFzU4JAoaZ1Sp FFLmyhtdKg49eR6uOhWv HjH7TPrcR9LklxT8 JVVapHOjEYdrJNG2R09p h9O2ZJUtFNJmDXD4rLH5 cX1tpHxrojjzmCDuyYcn dmVydGljYWwtYWxp F419ALNeoQjjFw4jjTR4 A1XiTqd2BEPggIkmHJ1y wWAzKRuzPr7txGomjLmf AK0vPXSpxrazSPKi uZ5eAGZowVPyjAtaEB7d DHWxxcqqy830ZkNhFSA9 EHRnjHNjA1CbuP5kAfHv SSZsLDLjE6HurOSo MFexQ321KDnqNlL5KRDd bbOgA3NqCNAnsNhbXfD6 o9G8Bx3WxCHvQ1AyK4g5 D5UpUovjtPV+PC90 PBYjMN30vPDntWOau7zz wEo3ZbLzEYVsIAB8wHqm SYvcz9ZpQULuC93yvZFj j7P5JNYqdMexrXZe HjIhyNE5rQ9fSZisqpmt n1xnljcnKnfvm4vzue73 zW20D61pCXbpAEDvYOPm CSThTYWeiRoytj5n xC9sZi3+RMEpuXM6yQQ3 aW9rBqJuPjV0HPqcI225 MtNnqRDtHfpsx5jvg1dd dTy4IhSvHEXotqZt gJjaNKX1p0FjFt40J64v IHdpZHRoPSIyMCUiIHZh tAubvc5tgH9gYe7+PC9j l3fbau81qT96mIB+ KONfLEW5gOaiPLehABEg hQ3zKZdvZrI2HCMhBsYa wG98uODrNGpbEf9hhKup jYluSX8iZLKvuuss o025BbGqh7lnPANwaSKq VIndFDA0G39vw1A6WIJp LPGiELW2aXH9mC7fpQkr bjogbGVmdDsgdmVy lRohELyuFPlwW440DEHd jKaqNrFsaVNaZ2rmujMS NE2qFmmrpGV+PHRkIHN0 zLrvPXecFXUgpU0u ALMsN1b2HnUcFqZ6MOaw J2RqnjQ8AHNzeNVyRZQi dXKIkY7imwpli5jevclf EzMbOUWoVXd8WJx3 NVFjyTpgXlCaJYV1NuR7 ZOQ8rXArkE4ngDuogknq eG0eUts+RklOOjwvdGQ+ XNVsXWQ5wJoeFGkb DKVaxS4eFJHnG3p6LaHh WmV2BYxsX0CbstI0LFSw pSIvJBGduALZxR3opndh e5glkpvrUkEbTQPd YPh6GGg1MPUplJnvQsIk RBY5ZpL1KWB9nPVhoH8w mPgyygevwQ3pOiy+TVJO OjwvdGQ+PHRkIHN0 jEerZHdhRDKcgO8aYFUp Z2u9PcZhPpW7BMndN2Gt czQ9SUDepERjVXPrgGNX wD5fwukab9toozbi QfZtLNYrPCn2DRf5FIDh tUsgMdXiZKC1TqS3XIM3 aFPdxI5wpTuterqjfW2m Oyc+PBS7RVL4VU96 UA26L1CvNqrxjBPbxPP+ PHRhYmxlIHdpZHRoPScx CMBoDvFjgPglQY2aWp1d ZGVyLWNvbGxhcHNl OiBj (more content not included)... Normal [facility] Auto Diffon 08-24-2020 Basophils/100 WBC (Bld) 1.0 % Normal 0.0-2.0 [facility] Comment on above: Order Comment: Order Added by Discern Expert. Performed By: #### 1 2330096, 4982320, 0324500, 19100877, 5606352, 5651640, 13872309, 02730517 ####[facility] [address] [place] [address] Basophils/Leukocytes Auto (Bld) [Pure # fraction] 0.1 E9/L Normal 0.0-0.2 [facility] Comment on above: Order Comment: Order Added by Discern Expert. Performed By: #### 1 0773078, 1208514, 6492583, 97090431, 7939886, 8257919, 03645746, 30769187 ####[facility] [address] [place] [address] Eosinophils/100 WBC (Bld) 2.5 % Normal 0.0-8.0 [facility] Comment on above: Order Comment: Order Added by Discern Expert. Performed By: #### 1 5137560, 4123908, 0643666, 88431950, 2773471, 9514542, 01746371, 40062799 ####[facility] [address] [place] [address] Eosinophils/Leukocytes Auto (Bld) [Pure # fraction] 0.3 E9/L Normal 0.0-0.5 [facility] Comment on above: Order Comment: Order Added by Discern Expert. Performed By: #### 1 4593145, 3451898, 5496675, 60305279, 1683786, 0584375, 78864278, 75018229 ####[address] [place] [address] Lymphocytes/100 WBC (Bld) 21.0 % Normal 14.0-50.0 [facility] Comment on above: Order Comment: Order Added by Discern Expert. Performed By: #### 1 6008872, 6905884, 5359623, 65995475, 6607800, 7117531, 74975208, 56349491 ####[address] [address] Lymphocytes/Leukocytes Auto (Bld) [Pure # fraction] 2.1 E9/L Normal 1.0-4.0 [facility] Comment on above: Order Comment: Order Added by Discern Expert. Performed By: #### 1 1934583, 4565176, 5398456, 85647754, 0723971, 0855037, 09757188, 59017679 ####[address] [place] [address] Monocytes/100 WBC (Bld) 6.2 % Normal 4.0-14.0 [facility] Comment on above: Order Comment: Order Added by Discern Expert. Performed By: #### 1 4501551, 7869000, 8460021, 08859896, 9037504, 3122247, 09539170, 95725259 ####[address] [place] [address] Monocytes/Leukocytes Auto (Bld) [Pure # fraction] 0.6 E9/L Normal 0.2-1.0 [facility] Comment on above: Order Comment: Order Added by Discern Expert. Performed By: #### 1 6439882, 6188707, 2190026, 19860987, 4630103, 1789463, 70482292, 68542997 ####[facility] [address] [place] [address] Neutrophils/100 WBC (Bld) 69.3 % Normal 36.0-75.0 [facility] Comment on above: Order Comment: Order Added by Discern Expert. Performed By: #### 1 7890955, 4690969, 6051292, 49273140, 3420103, 6884148, 11333599, 69947517 ####[facility] [address] [place] [address] Neutrophils/Leukocytes Auto (Bld) [Pure # fraction] 6.9 E9/L Normal 2.0-7.5 [facility] Comment on above: Order Comment: Order Added by Discern Expert. Performed By: #### 1 0885270, 2890603, 7722590, 88570169, 3948252, 0656540, 00817330, 51625535 ####[facility] [address] [place] [address] BMPon 08-24-2020 Creatinine [Mass/Vol] 1.1 mg/dL Normal 0.5-1.3 [facility] Comment on above: Performed By: #### 1 7586946, 0518862, 3173369, 42956759, 8204425, 5387291, 27921284, 64564644 ####[facility] [address] [place] [address] Urea nitrogen [Mass/Vol] 19 mg/dL Normal 5-21 [facility] Comment on above: Performed By: #### 1 8542962, 4306461, 6032220, 35690470, 3271743, 1075114, 53348104, 89346664 ####[facility] [address] [place] [address] Urea nitrogen/Creatinine [Mass ratio] 17 No Units Normal 10-20 [facility] Comment on above: Performed By: #### 1 6659582, 9104248, 8010389, 56122901, 1770057, 4549558, 16918537, 48196179 ####[facility] [address] [place] [address] Anion gap [Moles/Vol] 14 mmol/L Normal 6-16 [facility] Comment on above: Performed By: #### 1 2637250, 8910504, 7938681, 48107136, 1096122, 1273592, 63669689, 04135617 ####[facility] [address] [place] [address] Calcium [Mass/Vol] 9.4 mg/dL Normal 8.9-11.1 [facility] Comment on above: Performed By: #### 1 3928255, 0115808, 7624020, 11660690, 1422301, 3308532, 05247484, 92502058 ####[facility] [address] [place] [address] Chloride [Moles/Vol] 94 mmol/L Low 101-111 [facility] Comment on above: Performed By: #### 1 7239674, 3978850, 7031038, 36742503, 5003084, 2858780, 79659403, 87590009 ####[facility] [address] [place] [address] CO2 [Moles/Vol] 29 mmol/L Normal 21-31 [facility] Comment on above: Performed By: #### 1 5563942, 7606161, 5189173, 86833439, 7167642, 7617712, 30353010, 59236985 ####[facility] [address] [place] [address] Glucose [Mass/Vol] 103 mg/dL Normal 55-199 [facility] Comment on above: Result Comment: If t his glucose result represents a fasting glucose, interpretation should refer to the following reference range: 55-99 mg/dL Performed By: #### 1 6914983, 8093504, 1643790, 38937985, 2676918, 5609406, 87185128, 00260756 ####[facility] [address] [place] [address] Potassium [Moles/Vol] 4.0 mmol/L Normal 3.5-5.3 [facility] Comment on above: Performed By: #### 1 2575533, 6658525, 6598044, 04856829, 9762844, 0616848, 43090831, 56367967 ####[address] [place] [address] Sodium [Moles/Vol] 133 mmol/L Low 135-145 [facility] Comment on above: Performed By: #### 1 4776714, 2469468, 3195552, 29104095, 3418718, 1523474, 44951122, 60903043 ####[address] [address] BNPon 08-24-2020 Natriuretic peptide B (Bld) [Mass/Vol] 17 pg/mL Normal 5-80 [facility] Comment on above: Performed By: #### 1 4792395, 7610224, 4948312, 49535744, 5523032, 1081540, 32644396, 75832779 ####[address] [address] CBC w/ Auto Diffon Erythrocyte distribution width (RBC) [Ratio] 12.9 % Normal 10.9-14.2 [facility] Comment on above: Performed By: #### 1 9362084, 3229183, 3787684, 74766563, 8622479, 2797102, 63071894, 22008521 ####[address] [place] [address] Hematocrit (Bld) [Volume fraction] 44.4 % Normal 37.7-49.0 [facility] Comment on above: Performed By: #### 1 2996116, 1060389, 5717365, 76790964, 7226355, 8247806, 63628557, 18269353 ####[address] [place] [address] Hemoglobin (Bld) [Mass/Vol] 15.3 g/dL Normal 13.5-17.5 [facility] Comment on above: Performed By: #### 1 1620474, 7310691, 8863759, 96824338, 8880432, 2634489, 61388691, 06933961 ####[address] [address] MCH (RBC) [Entitic mass] 31.5 pg Normal 27.0-34.0 [facility] Comment on above: Performed By: #### 1 3903627, 3914703, 5179120, 47215674, 6782981, 4838631, 73017734, 23107445 ####[address] [address] MCHC (RBC) [Mass/Vol] 34.4 g/dL Normal 31.4-36.0 [facility] Comment on above: Performed By: #### 1 4496839, 6538163, 3098885, 55819190, 2831794, 9659640, 95815012, 31388093 ####[address] [address] MCV (RBC) [Entitic vol] 91.6 fL Normal 80.0-100.0 [facility] Comment on above: Performed By: #### 1 7536549, 8697903, 9399038, 22527959, 6076441, 5044283, 06392095, 42158901 ####[address] [address] Platelet mean volume (Bld) [Entitic vol] 8.4 fL Normal 6.4-10.8 [facility] Comment on above: Performed By: #### 1 5705561, 6523869, 5553789, 47325621, 5628903, 4453696, 09482536, 40321754 ####[address] [address] Platelets (Bld) [#/Vol] 289.0 E9/L Normal 150.0-500.0 [facility] Comment on above: Performed By: #### 1 8744446, 8714913, 1112346, 12100919, 0339709, 1645977, 54977913, 95136277 ####[facility] [address] [place] [address] RBC (Bld) [#/Vol] 4.8 E12/L Normal 4.3-5.9 [facility] Comment on above: Performed By: #### 1 0132886, 2194169, 4649737, 48072931, 4813282, 0861020, 63023883, 76606999 ####[facility] [address] [place] [address] WBC corrected for nucl RBC Auto (Bld) [#/Vol] 9.9 E9/L Normal 4.0-11.0 [facility] Comment on above: Performed By: #### 1 4017284, 8325139, 8930448, 88217605, 7012724, 7625757, 57212586, 08570221 ####[facility] [address] [place] [address] CTA Cheston 08-24-2020 CTA Chest Exam Date/Time: [...] 370 Contrast amount in ml's: 78 Normal [facility] Consent for Treatmenton 08-07 Consent for Treatment [id number] #1.00CD:127 Normal [facility] D-Dimeron 08-24-2020 Fibrin D-dimer FEU (PPP) [Mass/Vol] 845 ng/mL Abnormal 215-500 [facility] Comment on above: Result Comment: Resu [...] infections Liver cirrhosis Performed By: #### 1 7498296, 6733915, 7965743, 83932390, 0895340, 9091124, 22211704, 70573050 ####[facility] [address] [place] [address] Discharge Instructionson Discharge Instructions [id number] #1.00CD:127 Normal [facility] ED Clinical Summaryon 2020 ED Clinical Summary [address] [address] ED Clinical Summary Person Information Name: LILIANA MICHAELS/New_Reza Age: 55 Years : 1965 Sex: Male Language: Czech PCP: SIMONE JEAN BAPTISTE DC Marital Status: Single Phone: [phone] Visit Id: Visit Reason: Rib/trunk pain-swelling; SIDE [...] 08/24/2020 03:27:58 08/24/2020 03:27:58 08/24/2020 03:27:58 ADDRESS: [address] [facility] [id number] PHYS DOC NOTES: MEDICAL INFORMATION: Prescriptions Given: New Medications [id number], [address], [place] [id number], [phone] azithromycin (Zithromax TRI-AMIRA 500 mg oral tablet) [...] Address: When: SIMONE JEAN BAPTISTE [address] [place] [address] Business (1) In 1 day 08/25/2020 Comments: Patient is advised to follow-up with his primary care physician in 1 to 2 days. He is also advised to come back to the emergency department if symptoms get worse. DIAGNOSIS: 1:Rib pain on left side Normal [facility] ED Note-Physicianon 08-25-19 ED Note-Physician Basic [...] or chills. And has the symptoms since Tracey. Patient is not complaining of any nausea, [...] date 08/24/20 2:30:00 EDT Rapid COVID Antigen ([facility]) Orders: albuterol-ipratropiu m, 3 mL, Soln-Inh, Inhalation, Once, Stop date 08/24/20 0:16:00 EDT, STAT, Start date 08/24/20 0:16:00 EDT azithromycin, 500 mg = 1 tab(s), Oral, Daily, # 3 tab(s), Refills(s) 0, Pharmacy: [id number], 163, cm, 08/24/20 0:04:00 EDT, Height/Length Dosing, 101, kg, 08/24/20 0:04:00 EDT, Weight Dosing famotidine, 20 mg = 1 tab(s), Tab, Oral, Once, Stop date 08/24/20 0:17:00 EDT, STAT, Start date 08/24/20 0:17:00 EDT lidocaine topical, 1 patch(es), Topical, Daily, 7 patch(es), Refill(s) 0, apply 12 hours on and 12 hours off daily, [facility]pharm[facility] #[id number], 163, cm, 08/24/20 0:04:00 EDT, Height/Length Dosing, 101, kg, 08/24/20 0:04:00 EDT, Julian (more content not included)... Normal [facility] Comment on above: Result Comment: Elec [...] Document Reviewed: 11/28/2008 ExitCare? Patient Information ?2015 [employer]. This information is not intended to replace advice given to you by your health care provider. Make sure you discuss any questions you have with your health care provider. Normal [facility] ED Patient Summaryon 021 ED Patient Summary [address] [address] Patient Discharge Instructions Person Information Name: LILIANA MICHAELS Age: 55 Years Arrival Date: 08/23/2020 23:48:11 Discharge Diagnosis: 1:Rib pain on left side Primary Care Physician: SIMONE JEAN BAPTISTE DC Provider Information Primary Provider: Pia LANE, David Advanced Cardroom Hand:None The exam and treatment you received in the Emergency Department were for an urgent problem and are not intended as complete care. It is important that you follow up with a doctor, nurse practitioner, or physician?s graphic design assistant for ongoing care. If your symptoms become worse or you do not improve as expected and you are unable to reach your usual health care provider, you should return to the Emergency Department. We are available 24 hours a day. BRANDO LILIANA E has been given the following list of patient education materials, prescriptions and follow-up instructions: Follow-up Instructions: With: Address: When: SIMONE JEAN BAPTISTE [address] [place], [place] [id number] [facility] (1) In 1 day 08/25/2020 Comments: Patient [...] opioids can be used to help relieve fmghxabv-fc-cjjwos pain and are often prescribed following a [...] guidance from the Food and Drug Administration (www.fda.gov/Drugs/R esourcesForYou). ? Visit www.cdc.gov/drugover dose to learn about the risks of opioids abuse and overdose. ? If you believe you may be struggling (more content not included)... Normal [facility] PT & PTTon 08-24-2020 aPTT Coag (PPP) [Time] 30.2 second(s) Normal 25.1-36.5 [facility] Comment on above: Result Comment: Hepa rin therapeutic range (represented by Anti-Factor Xa activity of 0.2 - 0.4 U/mL) corresponds to PTT of 56.6 - 109.0 sec. Performed By: #### 1 6757744, 5932309, 3505289, 22692218, 6320111, 7313367, 83731422, 28176090 ####[facility] [address] [place] [address] INR Coag (PPP) [Relative time] 1.0 {INR} Invalid Interpretation Code [facility] Comment on above: Result Comment: INR results are specifically intended to assess patients stabilized on long-term Anticoagulation therapy suggested INR?s ?Less Intensive Anticoagulation? 2.0 ? 3.0 Conventional Range 3.0 ? 4.5 Performed By: #### 1 8416234, 6703239, 3360218, 40639436, 2756089, 8621263, 30788317, 04614036 ####[facility] [address] [place] [address] PT Coag (PPP) [Time] 11.6 second(s) Normal 10.2-12.9 [facility] Comment on above: Performed By: #### 1 8627628, 9724418, 2926896, 23504437, 1415054, 6755233, 81396124, 43346886 ####[facility] [address] [place] [address] RAD - Preliminary Cat Scan R nancy 08-24-2020 RAD - Preliminary Cat Scan Report [id number] #1.00CD:127 Normal [facility] Rapid COVID Antigen ([facility])on 08-24-2020 Rapid COV Int NEG Ctl Pass Normal [facility] Comment on above: Performed By: #### 2 [id number] ####[facility] [address] [place] [address] Rapid COV Int POS Ctl Pass Normal [facility] Comment on above: Performed By: #### 2 144236685 ####[address] [place] [address] SARS-CoV-2 (COVID-19) RNA KATT+probe Ql (Unsp spec) Not detected Normal Not Detected [facility] Comment on above: Result Comment: The Personal Capital System for Rapid Detection of SARS-CoV-2 is [...] or revoked sooner. Performed By: #### 2 [id number] ####[address] [facility] [address] Employed in Healthcare NO Normal [facility] Comment on above: Performed By: #### 2 [id number] ####[address] [facility] [place] [address] First Test Unknown [facility] Comment on above: Performed By: #### 2 [id number] ####[address] [place] [address] Hospitalized? NO Normal [facility] Comment on above: Performed By: #### 2 298707045 ####[address] [facility] [place] [address] ICU NO [facility] Comment on above: Performed By: #### 2 660450067 ####[address] [facility] [place] [address] ? NO Normal [facility] Comment on above: Performed By: #### 2 487598973 ####[address] [facility] [place] [address] Resides in a Congregate Care Setting NO Normal [facility] Comment on above: Performed By: #### 2 733751425 ####[address] [facility] [place] [address] Symptomatic as defined by [facility] YES Normal [facility] Comment on above: Performed By: #### 2 [id number] ####[address] [facility] [place] [address] Troponin 0 Hr.on 08-24-2020 Troponin I.cardiac [Mass/Vol] 4.10 pg/mL Low 15.90-38.40 [facility] Comment on above: Result Comment: The 95% CI (Confidence Interval) PPV (Positive Predictive Value) for myocardial infarction in females is 38 pg/mL, in males 51 pg/mL. The results should be used in conjunction with clinical conditions of myocardial infarction. (Access High Sensitivity Troponin I Instructions For Use, [employer], December 2017) Performed By: #### 1 6358693, 8311933, 4235945, 14237015, 9361896, 9212063, 96809013, 24086516 ####[facility] [address] [place] [address] Troponin 3 Hr.on 08-24-2020 Troponin I.cardiac [Mass/Vol] 4.40 pg/mL Low 15.90-38.40 [facility] Comment on above: Result Comment: The 95% CI (Confidence Interval) PPV (Positive Predictive Value) for myocardial infarction in females is 38 pg/mL, in males 51 pg/mL. The results should be used in conjunction with clinical conditions of myocardial infarction. (Access High Sensitivity Troponin I Instructions For Use, [employer], December 2017) Performed By: #### 1 8191561 ####[facility] [address] [place] [address] XR Chest Single Viewon 08-24 XR Chest [...] Reis MD, V. Transcribed by: VIVIAN Technologist: MMM Normal [facility] eGFRon 08-24-2020 GFR/1.73 sq M.predicted among blacks MDRD (S/P/Bld) [Vol rate/Area] mL/min/{1.73_m2} Normal >=59 [facility] Comment on above: Order Comment: Order added by Discern Expert. Result Comment: eGFR is race adjusted. AA=. Performed By: #### 1 2154726, 5120123, 1066158, 27983830, 5717024, 6554451, 33414551, 02948317 ####[facility] [address] [place] [address] GFR/1.73 sq M.predicted among non-blacks MDRD (S/P/Bld) [Vol rate/Area] mL/min/{1.73_m2} Normal >=59 [facility] Comment on above: Order Comment: Order added by Discern Expert. Result Comment: Conference Translator jeniffer kidney disease could be indicated at eGFR's of less than 60 mL/min/1.73m2. Kidney failure is indicated at less than 15 mL/min/1.73m2. Performed By: #### 1 5010246, 7296929, 1101426, 73035993, 0242523, 5690577, 51131683, 32067599 ####[facility] [address] [place] [address] HIP RIGHT 1 OR 2 VWS WITH PE LVISon 07-24-2020 HIP RIGHT 1 OR 2 VWS WITH PELVIS [facility] Department of Radiology [address] [place] [id number] Patient Name: LILIANA MICHAELS : 1965 [...] acute hardware complication Electronically signed: Ana M Mariee. Transcribed by: [email or web address], User Resident: Electronically Signed by: ANA M MARIEE @ 07/24/2020 10:01 AM Normal [facility] Comment on above: Order Comment: Views (X-RAY, HIP): Radiologic Protocol HIP RIGHT 1 OR 2 VWS WITH PE LVISon 04-24-2020 HIP RIGHT 1 OR 2 VWS WITH PELVIS [facility] Department of Radiology [address] [place] [id number] Patient Name: LILIANA MICHAELS : 1965 Sex: M Age: Race: White Pt. Location: Patient Status: D Ordered Date: 04/24/2020 10:40:00 AM Completed Date: 04/24/2020 10:48 AM Requesting Provider: JEY ELISE Attending Provider: Report Copy To: Signs & Symptoms: Z96.641 Presence of right artificial hip joint I10 History: Jameson Comments: Views (X-RAY, HIP): Radiologic Protocol Exam: HIP RIGHT 1 OR 2 VWS WITH PELVIS HIP RIGHT 1 OR 2 VWS WITH PELVIS HISTORY: Hip replacement, follow-up. COMPARISON: 03/14/2020. IMPRESSION: 1. Redemonstrated hip prosthesis, no hardware complication or acute abnormality. Electronically signed: Ed España. Transcribed by: [email or web address], User Resident: Electronically Signed by: ED ESPAÑA @ 04/25/2020 08:22 AM Normal [facility] Comment on above: Order Comment: Views (X-RAY, HIP): Radiologic Protocol Operative Reporton 0 Operative Report MR#: [id number] 2 [facility] Pt. Name: Liliana Michaels Room #: 6AB [id number] Discharge 03/15/2020 Date: Birthdate: 1965 OPERATIVE REPORT [...] a (more content not included)... Normal [facility] BASIC METABOLIC PANELon 11-0 -2020 Calcium [Mass/Vol] 8.8 mg/dL Normal 8.6-10.3 [facility] Comment on above: Order Comment: Views (X-RAY, HIP): Radiologic Protocol Performed By: #### 0 0071 ####[facility] [facility] Chloride [Moles/Vol] 98 mmol/L Normal 98-107 [facility] Comment on above: Order Comment: Views (X-RAY, HIP): Radiologic Protocol Performed By: #### 0 0071 ####[facility] [place] [address], [facility] CO2 [Moles/Vol] 30 mmol/L Normal 21-31 [facility] Comment on above: Order Comment: Views (X-RAY, HIP): Radiologic Protocol Performed By: #### 0 0071 ####[facility] [facility] [place] [address], [facility] Creatinine [Mass/Vol] 0.96 mg/dL Normal 0.70-1.30 [facility] Comment on above: Order Comment: Views (X-RAY, HIP): Radiologic Protocol Performed By: #### 0 0071 ####[facility] [place] [address], [facility] GFR/1.73 sq M.predicted among blacks MDRD (S/P/Bld) [Vol rate/Area] mL/min/{1.73_m2} Normal >60 [facility] Comment on above: Order Comment: Views (X-RAY, HIP): Radiologic Protocol Performed By: #### 0 0071 ####[facility] [place] [address], [place] GFR/1.73 sq M.predicted among non-blacks MDRD (S/P/Bld) [Vol rate/Area] mL/min/{1.73_m2} Normal >60 [facility] Comment on above: Order Comment: Views (X-RAY, HIP): Radiologic Protocol Performed By: #### 0 0071 ####[facility] [place] [address], [place] Glucose [Mass/Vol] 151 mg/dL High 70-100 [facility] Comment on above: Order Comment: Views (X-RAY, HIP): Radiologic Protocol Performed By: #### 0 0071 ####[facility] [place] [address], [place] Potassium [Moles/Vol] 4.4 mmol/L Normal 3.5-5.1 [facility] Comment on above: Order Comment: Views (X-RAY, HIP): Radiologic Protocol Performed By: #### 0 0071 ####[facility] Sodium [Moles/Vol] 133 mmol/L Low 136-145 [facility] Comment on above: Order Comment: Views (X-RAY, HIP): Radiologic Protocol Performed By: #### 0 0071 ####[facility] Urea nitrogen [Mass/Vol] 20 mg/dL Normal 7-25 [facility] Comment on above: Order Comment: Views (X-RAY, HIP): Radiologic Protocol Performed By: #### 0 0071 ####[facility] CBC COMPLETE BLOOD COUNTon 05-15-2019 Erythrocyte distribution width (RBC) [Ratio] 12.2 % Normal 11.5-15.0 The [facility] [place] Comment on above: Order Comment: No: D o not add to previous draw Performed By: #### 5 [id number] #### [facility] [address] Hematocrit (Bld) [Volume fraction] 42.2 % Normal 39.0-50.0 The [facility] [place] Comment on above: Order Comment: No: D o not add to previous draw Performed By: #### 5 0608 #### [facility] [address] [facility] [place] [address], [facility] Hemoglobin (Bld) [Mass/Vol] 13.9 g/dL Normal 13.0-17.0 The [facility] [place] Comment on above: Order Comment: No: D o not add to previous draw Performed By: #### 5 0608 #### [facility] [address] [place] [address], [facility] MCH (RBC) [Entitic mass] 31.4 pg Normal 27.0-33.0 The [facility] [place] Comment on above: Order Comment: No: D o not add to previous draw Performed By: #### 5 0608 #### [facility] [address] [place] [address], [facility] MCHC (RBC) [Mass/Vol] 32.9 g/dL Normal 32.0-35.0 The [facility] [place] Comment on above: Order Comment: No: D o not add to previous draw Performed By: #### 5 0608 #### [facility] [address] [place] [address], [facility] MCV (RBC) [Entitic vol] 95.5 fL Normal 82.0-98.0 T he [facility] [place] Comment on above: Order Comment: No: D o not add to previous draw Performed By: #### 5 0608 #### [facility] [address] [place] [address], [facility] Nucleated RBC/100 WBC (Bld) [Ratio] 0 % Normal 0-0 The [facility] [place] Comment on above: Order Comment: No: D o not add to previous draw Performed By: #### 5 0608 #### [facility] [address] [facility] [place] [address], [facility] PLAT CNT 254 10*3/uL Normal 150-400 The [facility] [place] Comment on above: Order Comment: No: D o not add to previous draw Performed By: #### 5 0608 #### [facility] [address] [place] [address], [facility] RBC (Bld) [#/Vol] 4.42 10*6/uL Normal 4.20-5.70 The [facility] [place] Comment on above: Order Comment: No: D o not add to previous draw Performed By: #### 5 0608 #### [facility] [address] [place] [address], [facility] WBC (Bld) [#/Vol] 14.44 10*3/uL High 4.00-10.60 The [facility] [place] Comment on above: Order Comment: No: D o not add to previous draw Performed By: #### 5 0608 #### [facility] 3000 [facility]. [address] POC GLUCOSE LABon 03-15-2020 Glucose [Mass/Vol] 193 mg/dL High 70-100 The [facility] [place] Comment on above: Performed By: #### 8 [id number] #### [facility] 3000 [place] [address], [facility] CBC W/DIFFon 03-14-2020 ABS IMM GRANS 0.2 10*3/uL Normal 0.0-0.2 The [facility] [place] Comment on above: Performed By: #### 5 0103 ####[facility] [place] [address], [facility] ABS NEUTROPHILS 8.0 10*3/uL High 1.6-7.6 The [facility] [place] Comment on above: Performed By: #### 5 0103 ####[facility] [place] [address], [facility] Basophils (Bld) [#/Vol] 0.1 10*3/uL Normal 0.0-0.2 The [facility] [place] Comment on above: Performed By: #### 5 0103 ####[facility] [place] [address], [facility] Basophils/100 WBC (Bld) 1.1 % High 0.0-1.0 T he [facility] [place] Comment on above: Performed By: #### 5 0103 ####[facility] [place] [address], [facility] Eosinophils (Bld) [#/Vol] 0.3 10*3/uL Normal 0.0-0.5 The [facility] [place] Comment on above: Performed By: #### 5 0103 ####[facility]3000 [place] [address], [facility] Eosinophils/100 WBC (Bld) 2.7 % Normal 0.0-6.0 The [facility] [place] Comment on above: Performed By: #### 5 0103 ####[facility]3000 [facility].[address] Erythrocyte distribution width (RBC) [Ratio] 12.3 % Normal 11.5-15.0 The [facility] [place] Comment on above: Performed By: #### 5 0103 ####[facility]3000 [facility].[address] Hematocrit (Bld) [Volume fraction] 50.5 % High 39.0-50.0 The [facility] [place] Comment on above: Performed By: #### 5 3 ####[facility]3000 [facility].[address] Hemoglobin (Bld) [Mass/Vol] 17.3 g/dL High 13.0-17.0 The [facility] [place] Comment on above: Performed By: #### 5 3 ####[facility] IMMATURE GRANS 1.4 % High 0.0-1.0 The [facility] [place] Comment on above: Performed By: #### 5 3 ####[place] [id number] [facility].[address] Lymphocytes (Bld) [#/Vol] 1.8 10*3/uL Normal 1.2-4.0 The [facility] [place] Comment on above: Performed By: #### 5 3 ####[facility]3000 [facility].[address] Lymphocytes/100 WBC (Bld) 15.6 % Low 20.0-45.0 The [facility] [place] Comment on above: Performed By: #### 5 3 ####[facility] MCH (RBC) [Entitic mass] 31.7 pg Normal 27.0-33.0 The [facility] [place] Comment on above: Performed By: #### 5 0103 ####[facility] MCHC (RBC) [Mass/Vol] 34.3 g/dL Normal 32.0-35.0 The [facility] [place] Comment on above: Performed By: #### 5 0103 ####[facility] MCV (RBC) [Entitic vol] 92.7 fL Normal 82.0-98.0 T he [facility] [place] Comment on above: Performed By: #### 5 0103 ####[facility] Monocytes (Bld) [#/Vol] 0.9 10*3/uL Normal 0.1-1.0 The [facility] [place] Comment on above: Performed By: #### 5 0103 ####[facility] MONOS 8.2 % Normal 5.0-12.0 The [facility] [place] Comment on above: Performed By: #### 5 3 ####[facility] Neutrophils/100 WBC (Bld) 71.0 % Normal 40.0-72.0 The [facility] [place] Comment on above: Performed By: #### 5 3 ####[facility] Nucleated RBC/100 WBC (Bld) [Ratio] 0 % Normal 0-0 The [facility] [place] Comment on above: Performed By: #### 5 3 ####[facility] [place] [address], [facility] PLAT CNT 301 10*3/uL Normal 150-400 The [facility] [place] Comment on above: Performed By: #### 5 0103 ####[facility] [place] [address], [facility] RBC (Bld) [#/Vol] 5.45 10*6/uL Normal 4.20-5.70 The [facility] [place] Comment on above: Performed By: #### 5 0103 ####[facility] [place] [address], [facility] WBC (Bld) [#/Vol] 11.22 10*3/uL High 4.00-10.60 The [facility] [place] Comment on above: Performed By: #### 5 0103 ####[facility]3000 [place] [address], [facility] HIP RIGHT 1 OR 2 VWS WITH PE LVISon 03-14-2020 HIP RIGHT 1 OR 2 VWS WITH PELVIS [facility] [place] Department of Radiology [address] [place] [id number] Patient Name: LILIANA MICHAELS : 1965 Sex: M Age: Race: White Pt. Location: OUTP Patient Status: O Ordered Date: 03/14/2020 6:40:00 AM Completed Date: 03/14/2020 10:47 AM Requesting Provider: JEY ELISE Attending Provider: JEY LEISE Report Copy To: Signs & Symptoms: RT [...] Dictation for documentation purposes Electronically signed: Aria Steinberg. Transcribed by: [email or web address], User Resident: Electronically Signed by: ARIA STEINBERG @ 03/14/2020 03:44 PM Normal The [facility] [place] Comment on above: Order Comment: RT TH A POC GLUCOSE LABon 03-14-2020 Glucose [Mass/Vol] 222 mg/dL High 70-100 The [facility] [place] Comment on above: Performed By: #### 8 [id number] #### [facility] [address] [place] [address], [facility] Glucose [Mass/Vol] 217 mg/dL High 70-100 The [facility] [place] Comment on above: Performed By: #### 8 [id number] ####[facility] [place] [address], [place] Glucose [Mass/Vol] 141 mg/dL High 70-100 The [facility] [place] Comment on above: Performed By: #### 8 [id number] #### [facility] [address] [place] [address], [facility] PORTABLE HIP RIGHT 1 OR 2 VW S WITH PELVISon 03-14-2020 PORTABLE HIP RIGHT 1 OR 2 VWS WITH PELVIS [facility] [place] Department of Radiology [address] [place] [id number] Patient Name: LILIANA MICHAELS : 1965 Sex: [...] tissue swelling and air Electronically signed: Aria Steinberg. Transcribed by: [email or web address], User Resident: Electronically Signed by: ARIA STEINBERG @ 03/14/2020 03:46 PM Normal The [facility] [place] Comment on above: Order Comment: Hardw are Evaluation, AP/Lateral TYPE AND SCREENon 03-14-2020 ABO INTERPRETATION O Normal The [facility] [place] Comment on above: Performed By: #### 6 2586 ####[facility] [place] [address], [facility] RH INTERPRETATION Positive Normal The [facility] [place] Comment on above: Performed By: #### 6 2586 ####[facility] Vital Signs Date Time Vital Sign Value Performing Clinician Facility 08-10-2023 13:31-0400 Body height 162.6 cm Amador Son MD Work Phone: [facility] 08-10-2023 13:31-0400 Body mass index (BMI) [Ratio] 34.67 kg/m2 Amador Son MD Work Phone: [facility] 08-10-2023 13:31-0400 Body weight 91.63 kg Amador Son MD Work Phone: [facility] 08-10-2023 13:31-0400 Diastolic blood pressure 70 mm[Hg] Amador Son MD Work Phone: [facility] 08-10-2023 13:31-0400 Heart rate 69 /min Amador Son MD Work Phone: [facility] 08-10-2023 13:31-0400 Systolic blood pressure 116 mm[Hg] Amador Son MD Work Phone: [facility] 08-05-2023 17:30-0400 Diastolic blood pressure 67 mm[Hg] Amador Son MD Work Phone: [facility] 08-05-2023 17:30-0400 Heart rate 60 /min Amador Son MD Work Phone: [facility] 08-05-2023 17:30-0400 Respiratory rate 16 /min Amador Son MD Work Phone: [facility] 08-05-2023 17:30-0400 SaO2% (BldA) [Mass fraction] 96 % Amador Son MD Work Phone: [facility] 08-05-2023 17:30-0400 Systolic blood pressure 112 mm[Hg] Amador Son MD Work Phone: [facility] 08-05-2023 12:13-0400 Body height 162.6 cm Amador Son MD Work Phone: [facility] 08-05-2023 12:13-0400 Body mass index (BMI) [Ratio] 34.17 kg/m2 Amador Son MD Work Phone: [facility] 08-05-2023 12:13-0400 Body temperature 97.5 [degF] Amador Son MD Work Phone: [facility] 08-05-2023 12:13-0400 Body weight 90.3 kg Amador Son MD Work Phone: [facility] 07-22-2023 14:38-0400 Body height 162.6 cm Amador Son MD Work Phone: [facility] 07-22-2023 14:38-0400 Body mass index (BMI) [Ratio] 34.33 kg/m2 Amador Son MD Work Phone: [facility] 07-22-2023 14:38-0400 Body weight 90.72 kg Amador Son MD Work Phone: [facility] 07-22-2023 14:38-0400 Diastolic blood pressure 90 mm[Hg] Amador Son MD Work Phone: [facility] 07-22-2023 14:38-0400 Heart rate 41 /min Amador Son MD Work Phone: [facility] 07-22-2023 14:38-0400 Systolic blood pressure 138 mm[Hg] Amador Son MD Work Phone: [facility] 07-14-2022 10:57-0500 Body height 162.56 cm Ishmael Simon Work Phone: [facility] [employer] 600 DO Work Phone: 07-14-2022 10:57-0500 Body mass index (BMI) [Ratio] 32.96 kg/m2 Ishmael Simon Work Phone: [facility] [employer] 600 DO Work Phone: 07-14-2022 10:57-0500 Body surface area Derived from formula 1.92 m2 Ishmael A Naderer Work Phone: [facility] [employer] [place] 600 DO Work Phone: 07-14-2022 10:57-0500 Body weight 87.09 kg Ishmael A Naderer Work Phone: [facility] [employer] 600 DO Work Phone: 07-14-2022 10:57-0500 Diastolic blood pressure 64 mm[Hg] Ishmael A Naderer Work Phone: [facility] [employer] [place] 600 DO Work Phone: 07-14-2022 10:57-0500 Heart rate 34 /min Ishmael A Naderer Work Phone: [facility] [employer] [place] 600 DO Work Phone: 07-14-2022 10:57-0500 Systolic blood pressure 118 mm[Hg] Ishmael A Naderer Work Phone: [facility] [employer] [place] 600 DO Work Phone: 01-28-2022 09:37-0400 Body height 162.56 cm Ishmael A Naderer Work Phone: [facility] [employer] [place] 600 DO Work Phone: 01-28-2022 09:37-0400 Body mass index (BMI) [Ratio] 30.9 kg/m2 Ishmael A Naderer Work Phone: [facility] [employer] [place] 600 DO Work Phone: 01-28-2022 09:37-0400 Body surface area Derived from formula 1.87 m2 Ishmael A Naderer Work Phone: [facility] [employer] 600 DO Work Phone: 01-28-2022 09:37-0400 Body weight 81.65 kg Ishmael A Naderer Work Phone: [facility] 600 DO Work Phone: 01-28-2022 09:37-0400 Diastolic blood pressure 50 mm[Hg] Ishmael Coronaerer Work Phone: [facility] 600 DO Work Phone: 01-28-2022 09:37-0400 Heart rate 41 /min Ishmael Coronaerer Work Phone: [facility] 600 DO Work Phone: 01-28-2022 09:37-0400 Systolic blood pressure 112 mm[Hg] Ishmael Coronaerer Work Phone: [facility] 600 DO Work Phone: Encounters Encounter Date Encounter Type Care Provider Facility Start: 11-09-2023 End: 11-09[facility]20[facility] Start: 10-10-2023 End: 10-10-2023 ambulatory ISHMAEL SIMON Not Available Start: 09-26-2023 End: 09-26-2023 ambulatory [facility] Start: 09-26-2023 End: 09-26-2023 Subsequent hospital visit by physician Varsha Device Remote [facility] Comment on above: Cardiac pacemaker in situ; Sinoatrial node dysfunction (Multi) Start: 08-12-2023 End: 08-12-2023 [facility] Start: 08-10-2023 End: 08-10-2023 Subsequent hospital visit by physician Varsha Ultrasound 3 [facility] Comment on above: Localized swelling o n left hand; S/P placement of cardiac pacemaker Start: 08-10-2023 End: 08-10-2023 ambulatory [facility] Ambulatory Start: 08-10-2023 End: 08-10-2023 Office outpatient visit 25 minutes Amador Son MD Work Phone: [facility] Comment on above: Chronotropic incompe tence (Primary Dx); Abnormal stress test; Sinus bradycardia; Sick sinus syndrome (CMS/HCC); Essential hypertension, benign; BMI 34.0-34.9,adult; Current smoker Start: 08-05-2023 End: 08-05-2023 Subsequent hospital visit by physician Amador Son MD Work Phone: [facility] Comment on above: Sinus bradycardia (P rimary Dx); Chronotropic incompetence; Sick sinus syndrome (CMS/HCC); Other fatigue; Abnormal stress test; Dyspnea; Pacemaker Start: 07-22-2023 End: 07-22-2023 ambulatory [facility] Ambulatory Start: 07-22-2023 End: 07-22-2023 Encounter for preprocedural cardiovascular examination [facility] Ambulatory Start: 07-22-2023 End: 07-22-2023 Office outpatient new 60 minutes Amador Son MD Work Phone: [facility] Comment on above: Chronotropic incompe tence (Primary Dx); Sinus bradycardia; Establishing care with new doctor, encounter for; BMI 34.0-34.9,adult; Sick sinus syndrome (CMS/HCC); Simple chronic bronchitis (CMS/HCC); Current smoker; Other fatigue; Preoperative cardiovascular examination Start: 07-22-2023 End: 07-22-2023 Patient encounter status Amador Son MD Work Phone: [facility] Work Phone: Start: 07-13-2023 End: 07-13-2023 ambulatory [facility] Ambulatory Start: 07-13-2023 End: 07-13-2023 ambulatory [facility] Ambulatory Start: 04-13-2023 End: 04-13-2023 ambulatory ISHMAEL [...] sit 15 minutes Ishmael Simon Work Phone: [facility] 600 DO Work Phone: Start: 07-14-[address] Valentino Ty Facility: Start: 07-13-[address] RICKY IBARRA . Faci lity:[facility]1 Start: 06-11-2022 End: 06-12-[address] ISHMAEL SIMON Facility:[facility] Start: 05-07-2022 End: 05-08-[address] ISHMAEL SIMON Facility:[facility] Start: 05-07-2022 End: 05-08-[address] ISHMAEL SIMON Facility:[facility] Start: 04-12-2022 End: 04-12-[address] ISHMAEL SIMON Facility:[facility] Start: 02-16-2022 Chart Update Ishmael Simon Work Phone: [facility] 250 DO Work Phone: Start: 02-15-[address] Valentino Ty Facility:44 Start: 01-28-[address] Ishmael Simon Facility: Start: 01-28-2022 Office consultation new/estab patient 60 min Ishmael Simon Work Phone: [facility] 600 DO Work Phone: Start: 01-14-2022 End: 01-15-2022 ambulatory TERESO Rajput Facility:[facility] Start: 01-01-2022 End: 01-02-[address] ISHMAEL SIMON Facility:[facility] Start: 12-15-2021 End: 12-15-[address] RICKY IBARRA . Facility:[facility] Start: 12-14-2021 Encounter for preprocedural laboratory examination DR RICKY IBARRA . [facility] Start: 12-12-2021 End: 12-13-[address] [...] Start: 10-03-2020 End: 10-04-2020 ambulatory SIMONE RUIZ Facility:[facility] Start: 03-26-2020 End: 04-10-2020 ambulatory JEY LEISE Facility:[facility] Start: 03-14-2020 End: 03-15-2020 ambulatory JEY ELISE Facility:[facility] Procedures Date Procedure Procedure Detail Performing Clinician Start: 09-26-2023 CARDIAC DEVICE CHECK - REMOTE NAIMA WRIGHT Start: 09-26-2023 CARDIAC DEVICE CHECK - REMOTE Amador Son MD Work Phone: Start: 08-10-2023 VASC US UPPER EXTREM ITY VENOUS DUPLEX LEFT NAIMA WRIGHT Start: 08-10-2023 Dup-scan xtr veins unilateral/limited study Naima Wright ROUTING EQUIPMENT TENDER-[employer] Work Phone: Start: 08-05-2023 Radiologic exam ches t single view Ana M Kumari APRN-[employer] Work Phone: Start: 08-05-2023 Ecg routine ecg w/le ast 12 lds trcg only w/o i&r Ana M Kumari APRN-[employer] Work Phone: Start: 08-05-2023 Electrophysiology study Amador Son MD Work Phone: Start: 08-05-2023 Echo tthrc r-t 2d w/ wom-mode compl spec&colr d Ana M Dodge Stanley ROUTING EQUIPMENT TENDER-[employer] Work Phone: Start: 08-05-2023 Ecg routine ecg w/le ast 12 lds trcg only w/o i&r Ana M Echo Stanley ROUTING EQUIPMENT TENDER-[employer] Work Phone: Start: 08-05-2023 Basic metabolic pane l calcium total Ana M Dodge Stanley ROUTING EQUIPMENT TENDERGraphite SoftwareFIBERGLASS TUBE MOLDER Work Phone: Start: 07-22-2023 CASE REQUEST EP LAB MINDI RHAF TRABOULSSI Start: 07-22-2023 AMB [facility] ELECTROPHYSIOLOGY MOURHAF TRABOULSSI Start: 07-22-2023 ECG 12-LEAD MOURHAF TR ABOULSSI Start: 07-22-2023 Ecg routine ecg w/le ast 12 lds w/i&r Amador Son MD Work Phone: Start: 07-13-2023 HOLTER OR EVENT CARD IAC MONITOR MOURHAF TRABOULSSI Start: 07-13-2023 ECG 12-LEAD MOURHAF TR ABOULSSI Start: 05-07-[address] ISHMAEL CROUCH Comment on above: Performed By: #### V ITAD, PSASC #### [facility] [address] [place] [address] Dr. Britt Mendoza Start: 03-15-2020 ANESTH HIP ARTHROPLASTY SIMONE RUIZ Start: 03-15-2020 TOTAL HIP ARTHROPLASTY JEY ELISE Start: 03-14-2020 Antibody screen SIMONE BOLIVAR Comment on above: Performed By: #### 6 [id number] ####[facility] [place] [address], [facility] Colonoscopy Ishmael Rae Naderer Work Phone: Excision of cyst Ishmael Cazares rer Work Phone: Hernia repair Ishmael Rae Naderer Work Phone: Operation on urinary system Ishmael Rae Naderer Work Phone: Surgical repair of u pper extremity Ishmael Rae Naderer Work Phone: Total replacement of hip Lillian Rae Naderer Work Phone: Plan of Treatment Date Care Activity Detail Author Start: 08-04-2024 Creatinine measurement Creatinine Level [facility] Start: 08-04-2024 Echocardiography Echocardiogram [facility] Start: 08-04-2024 Potassium measurement Potassium Level [facility] Start: 01-08-2024 Influenza vaccination Influenza Vaccine (Season Ended) [facility] Start: 11-09-2023 End: 08-04-2024 Cardiac Device Check - In Clinic Cardiac Device Check - In Clinic Implantable Cardiac Device Routine Pacemaker Expected: 11/09/2023 (Approximate), Expires: 08/04/2024 [facility] Service Area Work Phone: Comment on above: Expected: 11/09/2023 (Approximate), Expi res: 08/04/2024 Start: 11-09-2023 End: 08-04-2024 XR Chest 2 Views XR chest 2 views Imaging Routine Pacemaker Expected: 11/09/2023, Expires: 08/04/2024 [facility] Work Phone: Comment on above: Expected: 11/09/2023, Expires: Start: 11-09-2023 End: 11-09-2023 Patient encounter procedure [facility] Start: 11-03-2023 End: 11-03-2023 Patient encounter procedure 11/03/2023 8:50 AM EDT Office Visit [address] [place] [address] Valentino Ty MD [address] [place] [address] [facility] Start: 08-12-2023 End: 08-12-2023 Clinical Support 08/12/2023 8:30 AM EDT Clinical Support [facility] [address] [place] [address] [facility] Start: 08-10-2023 Subsequent hospital visit by physician 08/10/2023 2:09 PM EDT Hospital Encounter [facility] [address] [place] [address] Localized swelling on left hand; S/P placement of cardiac pacemaker [facility] Comment on above: Localized swelling on left hand; S/P placement of cardiac pacemaker Start: 07-22-2023 End: 07-21-2025 US Heart Transthoracic Transthoracic Echo Complete Echocardiography Routine Sinus bradycardia Chronotropic incompetence Sick sinus syndrome (CMS/HCC) Other fatigue Preoperative cardiovascular examination Expected: 07/22/2023 (Approximate), Expires: 07/21/2025 [facility] Work Phone: Comment on above: Expected: 07/22/2023 (Approximate), Expi res: 07/21/2025 Start: 07-13-2023 FUV, Provider: Valentino Ty, Status: Pen, Time: 8:30 AM FUV, Provider: Valentino Ty, Status: Pen, Time: 8:[address] [facility] 600 DO Work Phone: Start: 01-07-2023 COVID-19 Vaccine ( season) COVID-19 Vaccine ( season) [facility] Start: 01-07-2023 Influenza vaccination Influenza Vaccine (#1) [facility] Start: 07-14-2022 FUV, Provider: Valentino Ty, Status: Pen, Time: 10:40 AM FUV, Provider: Valentino Ty, Status: Pen, Time: 10:40 AM -[facility] [employer] 600 DO Work Phone: Start: 02-15-2022 STRESS JUICE, Provider: CARLITO KEANE NUCLEAR 01,[id number], Status: Pen, Time: 2:00 PM STRESS JUICE, Provider: CARLITO KEANE NUCLEAR 01,[id number], Status: Pen, Time: 2:00 PM [facility] 600 DO Work Phone: Start: 02-21-2014 Zoster Vaccines (1 of 2) Zoster Vaccines (1 of 2) [facility] Start: 02-21-1986 DTaP/Tdap/Td Vaccines (1 - Tdap) DTaP/Tdap/Td Vaccines (1 - Tdap) [facility] Start: 02-21-1983 Hepatitis B Vaccines (1 of 3 - 19+ 3-dose series) Hepatitis B Vaccines (1 of 3 - 19+ 3-dose series) [facility] Start: 02-21-1983 Urine screening for protein Diabetes: Urine Protein Screening [facility] Start: 02-21-1982 Diabetes mellitus screening Diabetes Screening [facility] Start: 02-21-1982 Hepatitis C screening Hepatitis C Screening [facility] Start: 02-21-1974 Diabetic foot examination Diabetes: Foot Exam [facility] Start: 02-21-1974 Glaucoma screening Diabetes: Retinopathy Screening [facility] Start: 02-21-1970 Pneumococcal Vaccine: Pediatrics (0 to 5 Years) and At-Risk Patients (6 to 64 Years) (1 - PCV) Pneumococcal Vaccine: Pediatrics (0 to 5 Years) and At-Risk Patients (6 to 64 Years) (1 - PCV) [facility] Start: 02-21-1970 Pneumococcal Vaccine: Pediatrics (0 to 5 Years) and At-Risk Patients (6 to 64 Years) (1 of 2 - PCV) Pneumococcal Vaccine: Pediatrics (0 to 5 Years) and At-Risk Patients (6 to 64 Years) (1 of 2 - PCV) [facility] Start: 02-21-1965 MMR Vaccines (1 of 1 - Standard series) MMR Vaccines (1 of 1 - Standard series) [facility] Start: 1964 COVID-19 Vaccine (#1) COVID-19 Vaccine (#1) [facility] Start: 1964 Creatinine measurement Creatinine Level [facility] Start: 1964 Echocardiography Echocardiogram [facility] Start: 1964 Hemoglobin A1c measurement Diabetes: Hemoglobin A1C [facility] Start: 1964 Hepatitis B Vaccines (1 of 3 - 3-dose series) Hepatitis B Vaccines (1 of 3 - 3-dose series) [facility] Start: 1964 HIV screening HIV Screening [facility] Start: 1964 Lipid panel Lipid Panel [facility] Start: 1964 Medicare Annual Wellness Visit Medicare Annual Wellness Visit (AWV) [facility] Start: 1964 Potassium measurement Potassium Level [facility] Start: 1964 Screening for malignant neoplasm of colon [facility] End: 07-21-2024 Basic metabolic 2000 panel - Serum or Plasma Basic Metabolic Panel Lab Routine Sinus bradycardia Chronotropic incompetence Sick sinus syndrome (CMS/HCC) Other fatigue 1 Occurrences starting 07/22/2023 until 07/21/2024 [facility] Work Phone: Comment on above: 1 Occurrences starting 07/22/2023 until 07/21/2024 End: 07-21-2024 CBC panel - Blood by Automated count CBC Lab Routine Sinus bradycardia Chronotropic incompetence Sick sinus syndrome (CMS/HCC) Other fatigue 1 Occurrences starting 07/22/2023 until 07/21/2024 [facility] Work Phone: Comment on above: 1 Occurrences starting 07/22/2023 until 07/21/2024 ECG 12 lead STAT ECG 12 lead STA T ECG STAT 08/05/2023 12:30 PM EDT [facility] Service [facility] Work Phone: ECG 12 lead STAT ECG 12 lead STA T ECG STAT 08/05/2023 5:12 PM EDT [facility] Work Phone: PPM IMPLANT DC PPM IMPLANT DC S inus bradycardia Chronotropic incompetence Sick sinus syndrome (CMS/HCC) Other fatigue [facility] Work Phone: End: 07-21-2024 Prothrombin time (PT) Protime-INR Lab Routine Sinus bradycardia Chronotropic incompetence Sick sinus syndrome (CMS/HCC) Other fatigue 1 Occurrences starting 07/22/2023 until 07/21/2024 [facility] Service Area Work Phone: Comment on above: 1 Occurrences starting 07/22/2023 until 07/21/2024 Payers Date Payer Category Payer Medicare HU[employer]NA MEDICARE HU[employer] GOLD CHOICE [id number] 2023-Present [address] [address] [place] [address] [id number] 2023 Medicare [id number] 1964 Unknown [id number] 2.16.840.1.902008.3.579.2.647 1964 Unknown [id number] 2.16.840.1.463348.3.579.2.647 1964 Unknown [id number] 2.16.840.1.060674.3.579.2.647 1964 Unknown [id number] 2.16.840.1.314465.3.579.2.1068 1964 Unknown [id number] 2.16.840.1.500228.3.579.2.356 1964 Unknown [id number] 2.16.840.1.437438.3.579.2.356 1964 Unknown [id number] 2.16.840.1.419171.3.579.2.593 1964 Unknown [id number] 2.16.840.1.976240.3.579.2.593 1964 Unknown [id number] 2.16.840.1.411954.3.579.2.593 1964 Unknown [id number] 2.16.840.1.904287.3.579.2.593 1964 Unknown [id number] 2.16.840.1.672859.3.579.2.593 1964 Unknown [id number] 2.16.840.1.554891.3.579.2.593 1964 Unknown [id number] 2.16.840.1.636156.3.579.2.593 1964 Unknown [id number] 2.16.840.1.131807.3.579.2.593 1964 Unknown [id number] 2.16.840.1.862813.3.579.2.593 1964 Unknown [id number] 2.16.840.1.907201.3.579.2.593 1964 Unknown [id number] 2.16.840.1.631129.3.579.2.593 1964 Unknown [id number] 2.16.840.1.748423.3.579.2.593 1964 Unknown [id number] 2.16.840.1.656394.3.579.2.593 1964 Unknown [id number] 2.16.840.1.620608.3.579.2.593 1964 Unknown [id number] 2.16.840.1.698406.3.579.2.593 1964 Unknown [id number] 2.16.840.1.318758.3.579.2.593 1964 Unknown [id number] 2.16.840.1.149739.3.579.2.593 1964 Unknown [id number] 2.16.840.1.713257.3.579.2.593 1964 Unknown [id number] 2.16.840.1.334056.3.579.2.593 1964 Unknown [id number] 2.16.840.1.493189.3.579.2.593 1964 Unknown [id number] 2.16.840.1.346407.3.579.2.593 1964 Unknown [id number] 2.16.840.1.816451.3.579.2.593 1964 Unknown [id number] 2.16.840.1.283441.3.579.2.593 1964 Unknown [id number] 2.16.840.1.699995.3.579.2.593 1964 Unknown [id number] 2.16.840.1.879554.3.579.2.1259 1964 Unknown [id number] 2.16.840.1.077423.3.579.2.1259 1964 Unknown [id number] 2.16.840.1.291364.3.579.2.1244 1964 Unknown [id number] 2.16.840.1.470899.3.579.2.1244 1964 Unknown [id number] 2.16.840.1.055542.3.579.2.1244 1964 Unknown [id number] 2.16.840.1.720242.3.579.2.1244 1964 Unknown [id number] 2.16.840.1.325807.3.579.2.1244 1964 Unknown [id number] 2.16.840.1.958703.3.579.2.1244 1964 Unknown [id number] 2.16.840.1.441450.3.579.2.1246 1964 Unknown [id number] 2.16.840.1.424317.3.579.2.1246 1964 Unknown [id number] 2.16.840.1.653977.3.579.2.1246 1964 Unknown [id number] 2.16.840.1.213730.3.579.2.1246 1960 Medicaid [id number] 1960 Medicare [id number] Unknown [id number] Unknown Social History Date Type Detail Facility Start: 07-13-2023 End: 08-10-2023 No alcohol use No alcohol use [facility] 600 DO Work Phone: Comment on above: 1 pack daily; Start: 07-13-2023 End: 08-05-2023 Tobacco smoking status NHIS Smokes tobacco daily [facility] History of tobacco use Cigarette Smoker [facility] Work Phone: Start: 07-13-2023 End: 08-05-2023 Tobacco use and exposure Smokeless tobacco non-user [facility] Work Phone: Start: 07-22-2023 End: 08-10-2023 Alcohol intake Lifetime non-drinker (finding) [facility] Work Phone: Start: 07-13-2023 End: 08-10-2023 Tobacco use panel [facility] Work Phone: Start: 1965 Sex Assigned At Not on file [facility] Work Phone: Start: 07-12-2023 End: 08-10-2023 Exposure to SARS-CoV-2 (event) Not sure [facility] Medical Equipment Procedure Code Equipment Code Equipment Origin al Text Equipment Identifier Dates Lead, Capsurefix Novus, 52 Cm - [id number] Start: 08-05-2023 Lead, Capsurefix Novus, 45 Cm - [id number] Start: 08-05-2023 Pacemaker, Dual Chamber, Kae Mri Xt Dr - [id number] Start: 08-05-2023 Clinical Notes 08-31-2020 to 08-10-2023 Amador Son MD - 08/10/2023 12:45 PM EDTPatient Yonatan Souza RN - 08/05/2023 7:45 PM Sarai Souza RN - 08/05/2023 7:45 PM Sarai Souza RN - 08/05/2023 7:20 PM EDT Note Date & Type Note Facility 08-10-2023 History of Present illness Narrative CARDIOLOGY OFFICE VISIT CHIEF COMPLAINT Chief Complaint Patient presents with Wound Check Patient is having swelling in his right hand HISTORY OF PRESENT ILLNESS HPI 58-year-old male with a past medical history of hypertension with tobacco use and COPD. Patient was evaluated by cardiology service since January 2022 for bradycardia. Patient had an evaluation for shortness of breath and his stress test showed questionable inferior wall ischemia. 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 No symptoms reported by the patient Patient underwent implantation of a dual-chamber pacemaker in August 05, 2023 with no complications. Patient states that so far he has not had any more syncopal episodes but he still noticing edema in the right or left upper extremity for the last 2 days. Today actually he feels much better. Pending ultrasound of the left upper extremity. Past Medical History Past Medical History: Diagnosis Date Arrhythmia CHF (congestive heart failure) ([facility]) COPD (chronic obstructive pulmonary disease) ([facility]) Hypertension Social History Social History Tobacco Use Smoking status: Every Day Packs/day: 1.00 Years: 15.00 Additional pack years: 0.00 Total pack years: 15.00 Types: Cigarettes Smokeless tobacco: Never Vaping Use Vaping Use: Never used Substance Use Topics Alcohol use: Never Drug use: Yes Frequency: 1.0 times per week Types: Marijuana Comment: for sleeping Family History Family History Problem Relation Name Age of Onset Mental illness Mother No Known Problems Father Allergies: No Known Allergies Outpatient Medications: Current Outpatient Medications Medication Instructions albuterol (Ventolin HFA) 90 mcg/actuation inhaler 2 puffs, inhalation, Every 4 hours PRN Aldactone 100 mg, oral, Daily with breakfast cetirizine (ZYRTEC) 10 mg, oral, Nightly wzokfkjytns-uygdpurhf-pcmvnqfa (TRELEGY-ELLIPTA) 100-62.5-25 mcg blister with device 1 [...] Nightly REVIEW OF SYSTEMS Review of Systems All other systems reviewed and are negative. VITALS Vitals: 08/10/23 1331 BP: 116/70 Pulse: 69 PHYSICAL EXAM Constitutional: Appearance: Healthy appearance. Not in distress. Eyes: Pupils: Pupils are equal, round, and reactive to light. HENT: Nose: Nose normal. Mouth/Throat: Pharynx: Oropharynx is clear. Pulmonary: Effort: Pulmonary effort is normal. Breath sounds: Normal breath sounds. Cardiovascular: PMI at left midclavicular line. Normal rate. Regular rhythm. Normal S1. Normal S2. Murmurs: There is no murmur. No gallop. No click. No rub. Comments: Left side device Pulses: Intact distal pulses. Edema: Peripheral edema absent. Comments: Mild edema in the left upper extremity Abdominal: General: Bowel sounds are normal. Musculoskeletal: Normal range of motion. Cervical back: Normal range of motion and neck supple. Skin: General: Skin is warm and dry. Neurological: Mental Status: Alert and oriented to person, [...] any anginal symptoms considering his risk profile 7. Status post chamber pacemaker implanted August 05, 2023 with no complications. 8. Arm swelling Plan recommendations Patient will get an ultrasound of the left upper extremity. Depending on results we may have to recommend some adjustment of his medical therapy. Follow device clinic as scheduled. Follow my office in the next few days for wound check evaluation. Risk factor modification and lifestyle modification discussed [...] prepare this document. documented in this encounter [facility] Work Phone: 08-10-2023 Instructions Vero Mccarthy LPN - 08/10/2023 12:45 PM EDT Keep follow up appt's as scheduled Continue same medications and treatments. Patient educated on proper medication use. Patient educated on risk factor modification. Please bring any lab results from other providers / physicians to your next appointment. Please bring all medicines, vitamins, and herbal supplements with you when you come to the office. Prescriptions will not be filled unless you are compliant with your follow up appointments or have a follow up appointment scheduled as per instruction of your physician. Refills should be requested at the time of your visit. Vero Blackwell LPN, am scribing for and in the presence of Dr. Amador Son MD documented in this encounter [facility] Work Phone: 08-05-2023 Nurse Note Patient discharge instructions reviewed with patient and , verbalized understanding. Lt chest dressing remains dry/intact, no hematoma, no ecchymosis. Patient able to teachback site care instructions, follow up appointments. IV x2 removed and patient discharged to home via w/c. [facility] 08-05-2023 Nurse Note Patient discharge instructions reviewed with patient and , verbalized understanding. Lt chest dressing remains dry/intact, no hematoma, no ecchymosis. Patient able to teachback site care instructions, follow up appointments. IV x2 removed and patient discharged to home via w/c. Patient sitting up in chair, denies any complaints of incisional pain. Lt upper chest incision remains dry/intact. Will begin discharge instructions. Patient ambulated to BR, gait steady. Pacer rep has already met with patient and . Lt upper chest dressing remains dry/intact. Lt arm in immobilizer and ice pack over site. [place] from [employer] in room speaking to Pt and SO educating on home device monitor. Pt returned to room after echocardiogram. Denies needs at this time. documented in this encounter [facility] Work Phone: 08-05-2023 Nurse Note Patient sitting up in chair, denies any complaints of incisional pain. Lt upper chest incision remains dry/intact. Will begin discharge instructions. [facility] Work Phone: 08-05-2023 Nurse Note Patient ambulated to BR, gait steady. Pacer rep has already met with patient and . Lt upper chest dressing remains dry/intact. Lt arm in immobilizer and ice pack over site. [facility] Work Phone: 08-05-2023 Note Formatting of this n ote might be different from the original. Post EKG and CXR performed at bedside. Pt denies needs at this time. Left chest remains soft and stable with no hematoma or oozing. [facility] Work Phone: 08-05-2023 Miscellaneous Notes Post EKG and CXR performed at bedside. Pt denies needs at this time. Left chest remains soft and stable with no hematoma or oozing. Upon arrival to room focused assessment performed and WDL. Left chest soft and stable with no hematoma or oozing, mepilex dressing in place, immobilizer on LUE. Educated Pt on current restrictions d/t pacemaker implantation, he states understanding. Pt given ice pack for chest and eating turkey sandwich box/drinking water and soda. Pt denies further needs at this time. Sedation Plan ASA 2 Mallampati class: II. Risks, benefits, and alternatives discussed with patient. documented in this encounter [facility] Work Phone: 08-05-2023 Hospital Discharge instructions Ana M Kumari APRN-[employer]BE MOLDER - 08/05/2023 5:00 PM EDT Images from the original note were not included. Home going instructions after a Pacemaker/ Defibrillator Implant After a procedure using sedation You should return home and rest for the remainder of the day and evening. It is recommended a responsible adult be with you for the first 24 hours after the procedure. Do not make any legal decisions for 24 hours after your procedure. Do not drink alcoholic beverages for 24 hours after your procedure. Wound care Leave the surgical dressing in place for 7 days post implant The dressing will be removed at the 1 week follow up appointment. Please keep your incision dry, the dressing is water resistant. You may shower avoid water directly hitting the dressing. Inspect your incisional site/ dressing each day Apply ice to the site 3-4 times per day in 20 minute intervals for at least 2 days after surgery It is normal for the area around the incision to be tender for a few weeks following surgery. Pain relievers such as Tylenol or Motrin are usually sufficient for pain relief. You may be prescribed Tramadol in addition. Take as prescribed alternating with Tylenol or Motrin. Activity Avoid driving for 1 week. If you have had passing out spells or previously restricted from driving, discuss driving restrictions with your doctor. For the first 4 to 6 weeks after implant avoid excessive/repetitive arm movement on the side of your new implant. Do not raise, push, pull, or stretch your arm above shoulder level. Do not steel pickler items that weigh greater than 10 lbs with the device arm. Wear your binder/sling for the first 48 hours then at night to remind you not to move the arm over your head and during the day as needed. Report to your provider Increased redness, swelling, drainage or gaping of your incisional site. Increased pain at site unrelieved by pain medication. Fever or chills prior to the 1 week appointment. Bright red bleeding from the incisional site or complete saturation of the dressing. Dizziness, lightheadedness, passing out, or defibrillator shocks. Remote monitoring/ Device ID card You have been instructed by the device company equal opportunity representative regarding remote home monitoring. There are multiple types of home monitoring units, please follow the instructions given If you have questions please contact the device clinic for further instruction After implant you will receive a temporary card. Permanent card will come in the mail in the next few weeks. It is important that you carry your pacemaker ID card with you at all times. Inform all doctors and healthcare providers that you have a pacemaker. Electromagnetic Interference: Microwave ovens are safe to use. Please inform any physicians of your pacemaker implant prior to MRI for appropriate scheduling. You should be prepared to show your pacemaker identification card to the security guards at metal detectors. Hand wand detector should be kept away from the pacemaker. Read the patient booklet for more information. Follow up appointments Incision (wound) check in 1 week. Appointment for Chest xray, device check, and provider in 3 months. These appointments will be scheduled and appear on your After Visit Summary. The following attachments cannot be sent through Care Everywhere.Pacemaker Insertion Discharge Instructions (Czech)documented in this encounter [facility] Work Phone: 08-05-2023 Note Formatting of this n ote might be different from the original. Upon arrival to room focused assessment performed and WDL. Left chest soft and stable with no hematoma or oozing, mepilex dressing in place, immobilizer on LUE. Educated Pt on current restrictions d/t pacemaker implantation, he states understanding. Pt given ice pack for chest and eating turkey sandwich box/drinking water and soda. Pt denies further needs at this time. [facility] Work Phone: 08-05-2023 Note Table formatting fro m the original result was not included. Procedure Details: Permanent Pacemaker System Implantation Dual Chamber Summary: Successful implantation of a dual-chamber permanent pacemaker. The pacing and sensing thresholds were satisfactory. Recommendations: 1. A chest X-ray should be performed and telemetry monitoring continued for 24 hours. 2. A 12 lead ECG should be performed prior to discharge from the hospital. 3. The patient should continue with the present medications. Discharge: 1. The patient recovered uneventfully from the effects of conscious sedation. The patient left the EP laboratory in stable condition and was transferred to the telemetry unit . Follow up: 1. The patient will be discharged the same day of the procedure if recovery parameters are appropriate. The patient should be alert for bleeding, swelling, or signs of infection. The patient should call the animal care technician immediately if symptoms recur, or for any problems. The patient has been instructed accordingly. 2. Follow up with [facility] office in seven days for post-operative wound assessment. 3. Follow up with Device Clinic in twelve weeks for routine device analysis and reprogramming if necessary. Remote monitoring will be instituted if possible. Procedures: Pocket fashioned. Dual-chamber permanent pacemaker implantation. Device testing. Patient history: Please refer to the detailed history and physical on the patient's medical chart. History of symptomatic bradycardia. Patient is a scheduled for dual-chamber pacemaker implantation Procedure narrative: The risks, benefits, and alternatives to the procedure and sedation were explained to the patient, and informed consent was obtained. The patient was in the fasting state. A grounding pad was placed. Self-adhesive anterior-posterior defibrillation pads were applied. A ZOLL defibrillator was used for monitoring and the defibrillator waveform was set to biphasic. The patient was set up for continuous monitoring of surface 12 lead ECG and pulse oximetry. Blood pressure was monitored. The procedure was performed under IV conscious sedation. The upper chest was prepped and draped in the usual sterile fashion. Local anesthesia: After preoperative IV antibiotic was completely infused, subcutaneous tissues just medial to the right/left deltopectoral area, were infiltrated with Lidocaine 1 % for local anesthesia. 1. Using a #15 scalpel, an incision was made, which was extended to the prepectoral fascia using blunt dissection. 2. The left cephalic vein was identified. Using Rayo scissors a venotomy was created. The distal part was tied off.. 3. A guidewire was advanced to the heart under fluoroscopic guidance, a sheath was placed over the guidewire, and the guidewire was retained and the dilator was removed. A lead was then advanced to the heart via fluoroscopic guidance, and the sheath was peeled away. The ventricle was mapped, and the lead was fixed to the right ventricular low septum. After lead placement, appropriate sensing and thresholds were obtained. No diaphragmatic pacing occurred at 10V and 1.5ms. A second sheath was placed over the wire and the dilator were removed. A pacemaker lead was advanced to the heart under fluoroscopy guidance and the sheath was peeled away. The lead was placed in the right atrial appendage. After lead placement, appropriate sensing and threshols were obtained. No diaphragmatic pacing occurred at 10V and 1.5ms. 4. The lead was sutured in place to the pectoralis muscle using O-Ethibond suture. Hemostasis was obtained with bovie cautery, one purse string sutures of O-Ethibond, and Grey. Lead measurements were reevaluated. 5. A left prepectoral pocket was fashioned. 6. A dual-chamber permanent pacemaker was attached to the lead and implanted. 7. The device was interrogated and its parameters recorded; telemetered electrograms and pacing and sensing thresholds were measured. 8. The pocket was flushed with saline and vancomycin. Wound hemostasis was obtained with electrocautery. The wound was closed in three layers. The skin was approximated with subcuticular suture and steri-strips. A pressure dressing was applied. The patient was transferred to the telemetry unit. Complications: The patient tolerated the procedure without any complications or incident. Prepared and signed by Tolerance: good Complications: None Estimated blood loss 10 cc. Device implanted Device implanted Medtronic dual-chamber pacemaker [place] XT DR MRI model number W1 DR 017 number [id number]. Right atrial lead Medtronic [id number] serial number [id number] 101V. Imp (more content not included)... SYNGO_SECTRA_CARDIOLAB_XP ER 08-05-2023 Note Formatting of this n ote might be different from the original. Sedation Plan ASA 2 Mallampati class: II. Risks, benefits, and alternatives discussed with patient. [facility] Work Phone: 08-05-2023 Attending History and physical note H&P reviewed. The patient was examined and there are no changes to the H&P. Source Note - Amador Son MD - 07/22/2023 1:45 PM EDT CARDIOLOGY OFFICE VISIT CHIEF COMPLAINT Chief Complaint Patient presents with New Patient Visit Pt is here today as a new patient from Dr. Ty HISTORY OF PRESENT ILLNESS HPI 58-year-old male with a past medical history of hypertension with tobacco use and COPD. Patient was evaluated by cardiology service since January 2022 for bradycardia. Patient had an evaluation for shortness of breath and his stress test showed questionable inferior wall ischemia. 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 No symptoms [...] breakfast cetirizine (ZYRTEC) 10 mg, oral, Nightly tdhgjbshanm-xxjucoyxr-zmlgjhvr (TRELEGY-ELLIPTA) 100-62.5-25 mcg blister with device 1 [...] software was utilized to prepare this document. [facility] Work Phone: 08-05-2023 History and physical note H&P reviewed. The patient was examined and there are no changes to the H&P. Source Note - Amador Son MD - 07/22/2023 1:45 PM EDT CARDIOLOGY OFFICE VISIT CHIEF COMPLAINT Chief Complaint Patient presents with New Patient Visit Pt is here today as a new patient from Dr. Ty HISTORY OF PRESENT ILLNESS HPI 58-year-old male with a past medical history of hypertension with tobacco use and COPD. Patient was evaluated by cardiology service since January 2022 for bradycardia. Patient had an evaluation for shortness of breath and his stress test showed questionable inferior wall ischemia. 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 No symptoms [...] breakfast cetirizine (ZYRTEC) 10 mg, oral, Nightly nrylftefrua-cgonebnod-jivmsxty (TRELEGY-ELLIPTA) 100-62.5-25 mcg blister with device 1 [...] prepare this document. documented in this encounter [facility] Work Phone: 08-05-2023 Nurse Note Sterling from [employer] in room speaking to Pt and SO educating on home device monitor. [facility] 08-05-2023 Nurse Note Pt returned to room after echocardiogram. Denies needs at this time. [facility] Work Phone: 07-22-2023 History of Present illness Narrative CARDIOLOGY OFFICE VISIT CHIEF COMPLAINT Chief Complaint Patient presents with New Patient Visit Pt is here today as a new patient from Dr. Ty HISTORY OF PRESENT ILLNESS HPI 58-year-old male with a past medical history of hypertension with tobacco use and COPD. Patient was evaluated by cardiology service since January 2022 for bradycardia. Patient had an evaluation for shortness of breath and his stress test showed questionable inferior wall ischemia. 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 No symptoms [...] breakfast cetirizine (ZYRTEC) 10 mg, oral, Nightly nkveyaqnznw-daqzpnvow-pyplqyrh (TRELEGY-ELLIPTA) 100-62.5-25 mcg blister with device 1 [...] prepare this document. documented in this encounter [facility] Work Phone: 07-22-2023 Instructions Jazz Flynn RN - 07/22/2023 1:45 PM EDT Continue [...] after procedure for wound check I, JAZZ FLYNN RN, AM SCRIBING FOR, AND IN THE PRESENCE OF DR. AMADOR SON MD documented in this encounter [facility] Work Phone: 07-20-2022 Note CONSULTATION PROCEDURE [...] right medial portion of his leg. [facility] 05-07-2022 Note CONSULTATION CONSULTATION DATE: 05/07/2022 [...] three months' time unless otherwise indicated. [facility] 01-14-2022 Note CONSULTATION CONSULTATION DATE: 01/14/2022 [...] it was recommended that he see a movie stunt performer, which he did do. He did a Holter monitor study and is following up with his movie stunt performer on 01/28/2022. Current medications include gabapentin 300 [...] agrees with the plan of care. [facility] 11-19-2021 Note CONSULTATION CONSULTATION DATE: 11/19/2021 [...] to S1. Activities such as standing, walking, licensed nuclear control room operator and evening hours, stairs, bending and [...] be followed up in the clinic post-procedure. [facility] Signed and Approved by: TERESO COLMENARES . 11/27/2021 14:13:00 [facility] 10-22-2021 Note CONSULTATION CONSULTATION DATE: 10/22/2021 HISTORY [...] patient agrees with the plan of care. [facility] Signed and Approved by: TERESO COLMENARES . 11/04/2021 16:23:00 [facility] 10-01-2021 Note CONSULTATION CONSULTATION DATE: 10/01/2021 HISTORY [...] shape. He has seen Dr. Nunn in [place] in the past regarding his back, and [...] Patient agrees with the plan of care. [facility] Signed and Approved by: TERESO COLMENARES . 10/08/2021 16:01:00 [facility] 08-31-2020 Note Microbiology PROCEDURE: Blood Culture Charcoal [R1] SOURCE: Blood BODY SITE: Arm L COLLECTED DATE/TIME: 08/24/2020 01:07 EDT RECEIVED DATE/TIME: 08/24/2020 03:43 EDT START DATE/TIME: 08/24/2020 03:43 EDT FREE TEXT SOURCE: Peripheral vein site #[address], David David Palacio MD FINAL REPORTS Final Report [] Verified Date/Time: 08/31/2020 07:00 EDT No growth at 7 days. Performing Locations R1: [facility], [address] [place] [address], [address] [place] [address], [facility] Comment on above: Performed By: #### 1 [id number] ####[address] [address] 08-31-2020 Note Microbiology PROCEDURE: Blood Culture Charcoal [...] Locations R1: This [facility] performed at: [facility], [address] [place] [address], [address] [place] [address], [facility] Comment on above: Performed By: #### 1 [id number] ####[place] [address] Evaluation note Diagnosis 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 Sinus bradycardia Other specified cardiac dysrhythmias Establishing care with new doctor, encounter for BMI 34.0-34.9,adult Sick sinus syndrome (CMS/HCC) Sinoatrial node dysfunction Simple chronic bronchitis (CMS/HCC) Simple chronic bronchitis Current smoker Other fatigue Preoperative cardiovascular examination Pre-operative cardiovascular examination documented in this encounter [facility] Work Phone: Evaluation note* Diagnosis Other fatigue- Primary Sinus bradycardia Other specified cardiac dysrhythmias Chronotropic incompetence Other specified conduction disorder Sick sinus syndrome (CMS/HCC) Sinoatrial node dysfunction Other fatigue Abnormal stress test Other nonspecific abnormal cardiovascular system function study Dyspnea Other dyspnea and respiratory abnormality Pacemaker Cardiac pacemaker in situ Sinus bradycardia Other specified cardiac dysrhythmias Chronotropic incompetence Other specified conduction disorder Sick sinus syndrome (CMS/HCC) Sinoatrial node dysfunction Sinus bradycardia Other specified cardiac dysrhythmias Chronotropic incompetence Other specified conduction disorder Sick sinus syndrome (CMS/HCC) Sinoatrial node dysfunction Other fatigue documented in this encounter [facility] Work Phone: Evaluation note* Diagnosis Localized swelling on left hand S/P placement of cardiac pacemaker 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 Abnormal stress test Other nonspecific abnormal cardiovascular system function study Sinus bradycardia Other specified cardiac dysrhythmias Sick sinus syndrome (CMS/HCC) Sinoatrial node dysfunction Essential hypertension, benign BMI 34.0-34.9,adult Current smoker documented in this encounter [facility] Work Phone: Evaluation note* Diagnosis Localized swelling on left hand S/P placement of cardiac pacemaker documented in this encounter [facility] Work Phone: Evaluation note* Diagnosis Cardiac pacemaker in situ Sinoatrial node dysfunction (Multi) Sinoatrial node dysfunction documented in this encounter [facility] Work Phone: History of Present illness Narrative* Patient is here for cardiovascular evaluation for second opinion in regard to documents resting sinus bradycardia. The patient is 56-year-old with history of tobacco use and COPD was evaluated recently due to shortness of breath and his stress test showed questionable inferior wall ischemia. This led to a cardiac evaluation in [place] and its not clear to me whether [...] recent ischemic evaluation * 5 follow-up in [address] [place] [address] [employer] Work Phone: History of Present illness Narrative* Patient is here for cardiovascular evaluation for second opinion in regard to documents resting sinus bradycardia. The patient is 56-year-old with history of tobacco use and COPD was evaluated recently due to shortness of breath and his stress test showed questionable inferior wall ischemia. This led to a cardiac evaluation in [place] and its not clear to me whether [...] ischemic evaluation * 5 follow-up in 6 [facility] Work Phone: History of Present illness Narrative* Patient is here for cardiovascular evaluation for second opinion in regard to documents resting sinus bradycardia. The patient is 56-year-old with history of tobacco use and COPD was evaluated recently due to shortness of breath and his stress test showed questionable inferior wall ischemia. This led to a cardiac evaluation in [place] and its not clear to me whether [...] ischemic evaluation * 5 follow-up in 6 [facility] Work Phone: History of Present illness Narrative* [...] ischemic evaluation. He underwent cardiac catheterization in [place] which showed no significant obstructive disease * [...] EKG or earlier if the need arise [place] [address] DO Work Phone: Summary Purpose Family History [...] Status:Active Advance Directives No Advanced Directives Records FoundLatest Code Status on File Code Status Date Activated Date Inactivated Comments Full Code 08/05/2023 12:02 PM Question Answer Comments Plan of Care: Code Status Discussion Not Compl eted Decision Maker: Provider Rationale: Patient condition do es not warrant discussion Latest Code Status on File Code Status Date Activated Date Inactivated Comments Full Code 08/05/2023 12:02 PM Question Answer Comments Plan of Care: Code Status Discussion Not Compl eted Decision Maker: Provider Rationale: Patient condition do es not warrant discussion Latest Code Status on File Code Status Date Activated Date Inactivated Comments Full Code 08/05/2023 12:02 PM Question Answer Comments Plan of Care: Code Status Discussion Not Compl eted Decision Maker: Provider Rationale: Patient condition do es not warrant discussion Date Activated Date Inactivated Comments 08/05/2023 12:02 PM Question Answer Comments Plan of Care: Code Status Discussion Not Compl eted Decision Maker: Provider Rationale: Patient condition does not warra nt discussion Chief Complaint LILIANA MICHAELS is being seen for npv/ jenelle.LILIANA MICHAELS is being seen for npv/ jenelle.LILIANA MICHAELS is being seen for npv/ jenelle.LILIANA MICHAELS is being seen for a month follow-up of. Reason for Referral Specialty Diagnoses / Procedures Referred By Isela mckay Referred To Contact Cardiology Diagnoses Sinus bradycardia Chronotropic incompetence Sick sinus syndrome (CMS/HCC) Other fatigue Preoperative cardiovascular examination Procedures Transthoracic Echo Complete SC ECHO TTHRC R-T 2D W/WOM-MODE COMPL SPEC&COLR D Amador Son MD [address] [address] Referral ID Status Reason Start Date Expiration Date Visits Requested Visits Authorized [id number] Pending Review Perform Procedure 07/22/2023 07/21/2024 1 1 Specialty Diagnoses / Procedures Referred By Contac t Referred To Contact Diagnoses Sinus bradycardia Establishing care with new doctor, encounter for Procedures ECG 12 lead (Clinic Performed) Amador Son MD 254 [facility] [address] [place] [address] Referral ID Status Reason Start Date Expiration Date V isits Requested Visits Authorized [id number] Authorized 07/22/2023 07/21/2024 1 1 Specialty Diagnoses / Procedures Referred By Contac t Referred To Contact Radiology Diagnoses Pacemaker Procedures XR chest 2 views Ana M Kumari, ROUTING EQUIPMENT TENDER-FIBERGLASS TUBE MOLDER [address] [facility], [facility] [address] [place] [address] Referral ID Status Reason Start Date Expiration Date Visits Requested Visits Authorized [id number] Authorized Perform Procedure 08/05/2023 08/04/2024 1 1 Specialty Diagnoses / Procedures Referred By Contac t Referred To Contact Cardiology Diagnoses Pacemaker Procedures Cardiac Device Check - In Clinic Ana M Kumari ROUTING EQUIPMENT TENDER-FIBERGLASS TUBE MOLDER [address] [facility], [facility] [address] [place] [address] Referral ID Status Reason Start Date Expiration Date Visits Requested Visits Authorized [id number] Pending Review Perform Procedure 08/05/2023 08/04/2024 1 1 Specialty Diagnoses / Procedures Referred By Contac t Referred To Contact Cardiology Diagnoses Localized swelling on left hand S/P placement of cardiac pacemaker Procedures Vascular US upper extremity venous duplex left Naima Wright, ROUTING EQUIPMENT TENDER-FIBERGLASS TUBE MOLDER [address] [facility], [address] [address] Referral ID Status Reason Start Date Expiration Date Visits Requested Visits Authorized [id number] Authorized Perform Procedure 08/09/2023 08/08/2024 1 1 Specialty Diagnoses / Procedures Referred By Contac t Referred To Contact Cardiology Diagnoses Cardiac pacemaker in situ Sinoatrial node dysfunction (Multi) Procedures Cardiac Device Check - Remote Amador Son MD [address] [place] [address] [address] [place] [address] Referral ID Status Reason Start Date Expiration Date Visits Requested Visits Authorized [id number] Pending Review Perform Procedure 08/08/2023 08/07/2024 1 1 Additional Source Comments (unrecognized sect ion and content) No Status Records FoundNo Status Records FoundNo Status Records FoundNo Status Records FoundNo Status Records FoundNo Status Records FoundNo Status Records FoundNo Status Records FoundNo Status Records Found INFORMATION SOURCE (unrecogn ized section and content) DATE CREATED AUTHOR 03/06/2021 [facility] DATE CREATED AUTHOR AUTHOR'S ORGANIZ ATION 03/12/2021 [facility] DATE CREATED AUTHOR AUTHOR'S ORGANIZ ATION 02/16/2022 [facility] DATE CREATED AUTHOR AUTHOR'S ORGANIZ ATION 07/16/2022 [facility] DATE CREATED AUTHOR AUTHOR'S ORGANIZ ATION 07/16/2022 [employer] DATE CREATED AUTHOR AUTHOR'S ORGANIZ ATION 09/17/2022 [facility] DATE CREATED AUTHOR AUTHOR'S ORGANIZ ATION 10/10/2023 [facility] EPIC DATE CREATED AUTHOR AUTHOR'S ORGANIZ ATION 11/10/2023 [facility] DATE CREATED AUTHOR AUTHOR'S ORGANIZ ATION 11/30/2023 [facility] Reason for Visit (unrecogniz ed section and content) Reason Comments New Patient Visit Pt is here today as a new patient from Dr. Ty Specialty Diagnoses / Procedures Referred By Isela mckay Referred To Contact Cardiology Diagnoses Sinus bradycardia Valentino Ty MD [address], [address] [place] [address] Amador Son MD [address] [facility], [address] [place] [address] Referral ID Status Reason Start Date Expiration Date Visits Requested Visits Authorized [id number] Authorized Specialty Services Required 07/15/2023 07/14/2024 1 1 Specialty Diagnoses / Procedures Referred By Isela mckay Referred To Contact Diagnoses Sinus bradycardia Chronotropic incompetence Sick sinus syndrome (CMS/HCC) Other fatigue Sinus bradycardia [R00.1] Chronotropic incompetence [I45.89] Sick sinus syndrome (CMS/HCC) [I49.5] Other fatigue [R53.83] Procedures SC INS NEW/RPLCMT PRM PM W/TRANSV ELTRD ATRIAL&VENT PPM IMPLANT DUAL Amador Son MD 254 [facility] [address] [place] [address] [employer] [employer] [address] [place] [address] Referral ID Status Reason Start Date Expiration Date Visits Re quested Visits Authorized [id number] 1 1 Reason Comments Wound Check Patient is having sw elling in his right hand Specialty Diagnoses / Procedures Referred By Isela mckay Referred To Contact Cardiology Diagnoses Localized swelling on left hand S/P placement of cardiac pacemaker Procedures Vascular US upper extremity venous duplex left Yusuf-Naima Rodriguez E, ROUTING EQUIPMENT TENDER-FIBERGLASS TUBE MOLDER [address] [facility], [facility] [address] [place] [address] Referral ID Status Reason Start Date Expiration Date Visits Requested Visits Authorized [id number] Authorized Perform Procedure 08/09/2023 08/08/2024 1 1 Specialty Diagnoses / Procedures Referred By Isela mckay Referred To Contact Cardiology Diagnoses Cardiac pacemaker in situ Sinoatrial node dysfunction (Multi) Procedures Cardiac Device Check - Remote Amador Son MD [address] [facility] [address] [place] [address] Referral ID Status Reason Start Date Expiration Date Visits Requested Visits Authorized [id number] Pending Review Perform Procedure 08/08/2023 08/07/2024 1 1 Care Teams (unrecognized sec tion and content) Senior Net Engineer Relationship Specialty Start Date End Date Ishmael Simon MD [address] [place] [address] PCP - General Family Medicine 06/29/23 Senior Net Engineer Relationship Specialty Start Date End Date Ishmael Simon MD [address] [place] [address] PCP - General Family Medicine 06/29/23 Senior Net Engineer Relationship Specialty Start Date End Date Ishmael Simon MD [address] [place] [id number] PCP - General Family Medicine 06/29/23 Senior Net Engineer Relationship Specialty Start Date End Date Ishmael Simon MD [address] [place] [address] PCP - General Family Medicine 06/29/23 Senior Net Engineer Relationship Specialty Start Date End Date Ishmael Simon MD PCP - General Family Medicine 06/29/23 Scheduled Active and Recently Administ ered Medications (unrecognized section and content) Medication Order 08/03/2023 08/04/2023 08/05/2023 ceFAZolin in dextrose (iso-os) (Ancef) IVPB 1 g (COMPLETED) 1 g, intravenous, at 100 mL/hr, Administer over 30 Minutes, Once, On Tue08/05/23 at 1230, For 1 dose, Preprocedure, Administer within 60 minutes prior to incision. premix bag, Dosing of this medication varies based on severity of illness. Does this patient have sepsis or concern for sepsis (probable or documented infection plus systemic manifestations of infection)? No, Suspected Indication (Select all that apply): Surgical Prophylaxis 1230 (New Bag - Prov ider: Racheal Rosen, RT)1300 (Stopped - Provider: Lottie Ferreira RN) chlorhexidine (Hibiclens) 4 % liquid (COMPLETED) Topical, Once, On Tue08/05/23 at 1230, For 1 dose, Preprocedure, For pre-op skin preparation 1221 (Given - Provid er: Lexi Araiza RN) mupirocin (Bactroban) 2 % ointment 1 Application (COMPLETED) 1 Application, Topical, Once, On Tue08/05/23 at 1230, For 1 dose, Preprocedure, Apply topically to both nares prior to procedure. Do not initiate until staph screening obtained first. 1221 (Given - Provid er: Lexi Araiza RN) perflutren lipid microspheres (Definity) injection 0.5-10 mL of dilution 0.5-10 mL of dilution, intravenous, Once in imaging, Starting on Tue08/05/23 at 1202, For 1 dose, Preprocedure, Contrast - for use by imaging provider only. Prior to administration, Definity product must be activated. First, bring vial to room temperature. Then, shake vial for 45 seconds. Do not use if the 45 second activation cycle has not been completed. Following activation, the product will appear as a milky white suspension and may be used immediately. If not used within 5 minutes of activation, re-suspend by inverting and shaking the vial for 10 seconds. Discard unused product. Administration: Dilute 1.3 mL of activated DEFINITY with 8.7 mL of normal saline in a 10 mL syringe. Inject 0.5 mL of diluted DEFINITY when notified the images/film are unclear to enhance view of Left Ventricular borders. Repeat 0.5 mL of DEFINITY until clear images are obtained, not to exceed 10 mLs. Once images are obtained or limit of medication is reached, flush line with 10 mL of Normal Saline. Continuous Medication Order 08/03/2023 08/04/2023 08/05/2023 sodium chloride 0.9% infusion (CANCELED) 20 mL/hr, intravenous, Continuous, Starting on Tue08/05/23 at 1230, Preprocedure 1222 (New Bag - Prov ider: Lexi Araiza RN)1659 (Due: Stopped - Provider: CHIDI Ferreira) sodium chloride 0.9% infusion (CANCELED) 20 mL/hr, intravenous, Continuous, Starting on Tue08/05/23 at 1230, Preprocedure, call circuit worker to EP lab 1221 (New Bag - Prov ider: Lexi Araiza RN)1659 (Due: Stopped - Provider: CHIDI Ferreira) PRN Medication Order 08/03/2023 08/04/2023 08/05/2023 acetaminophen (Tylenol) tablet 650 mg 650 mg, oral, Every 4 hours PRN, pain mild (1-3), first line, pain moderate (4-6), first line, Starting on Tue08/05/23 at 1657, If ordered PRN for pain, nurse is permitted to administer this medication for higher pain scores based on patient preference? Yes fentaNYL PF (Sublimaze) injection (CANCELED) As needed, Starting on Tue08/05/23 at 1555, Intraprocedure 1555 (Given - Provid er: Lottie Ferreira RN)1556 (Given - Provider: Lottie Ferreira RN)1557 (Given - Provider: Lottie Ferreira RN)1557 (Given - Provider: Lottie Ferreira RN)1601 (Given - Provider: Lottie Ferreira RN) lidocaine PF (Xylocaine) 10 mg/mL (1 %) injection (CANCELED) As needed, Starting on Tue08/05/23 at 1555, Intraprocedure 1555 (Given - Provid er: Amador Son MD)1557 (Given - Provider: Amadro Son MD)1612 (Given - Provider: Amador Son MD) midazolam (Versed) injection (CANCELED) As needed, Starting on Tue08/05/23 at 1555, Intraprocedure 1555 (Given - Provid er: Lottie Ferreira RN)1557 (Given - Provider: Lottie Ferreira RN)1601 (Given - Provider: Lottie Ferreira RN) ondansetron (Zofran) injection 4 mg 4 mg, intravenous, Every 8 hours PRN, nausea/vomiting, first line, Starting on Tue08/05/23 at 1657, 1st Line. Give IV if patient is unable to take orally. If inadequate response within 60 minutes, proceed to next-line agent for same PRN reason or contact provider if no further options ordered. When administering via IV Push, administer over 3-5 minutes. traMADol (Ultram) tablet 50 mg 50 mg, oral, Every 6 hours PRN, pain moderate (4-6), second line, pain severe (7-10), second line, Starting on Tue08/05/23 at 1657, If ordered PRN for pain, nurse is permitted to administer this medication for higher pain scores based on patient preference? Yes FOR RECORDS PERTAINING TO PATIENTS WHO ARE [...] BE BASED ON THE PRIMARY CLINICAL RECORDS. [facility]. provides no warranty or guarantee of the accuracy or completeness of information in this document.
[2023-12-05 07:20] LABS: Chol HDL Ratio 6.5; Cholesterol 265 mg/dL (<=200); HDL Cholesterol 41 mg/dL (40-60); Triglycerides 300 mg/dL (<=150)
== END 2023-12-05 06:43 | disposition home or self-care (01) ==
LOC: LAB 06:43
PROVIDERS: PCP Family Medicine; Visit Provider Internal Medicine Cardiovascular Disease
DX: I45.89 Other specified conduction disorders (principal); I10 Essential (primary) hypertension
CPT/HCPCS: 36415; 80061

== ENCOUNTER 2023-12-27 13:38 | Outpatient (OUT) | payer MEDICARE, SELFPAY ==
--- NOTE | 2023-12-27 | CONS_ITS ---
CONSULTATION DATE: 12/27/2023 TO: Ishmael Watts M.D. CHIEF COMPLAINT: Includes lower back pain, right groin pain. HISTORY: He was seen today complaining of at least 0-7/10 pain, involving stairs, described as a deep tightness type of pain or pulling type of discomfort, increased with activities such as standing, walking, performing transitioning maneuvers. Feels most comfortable in the semi-recumbent position. Denies any change in bowel and bladder habits or new sensorimotor changes in his lower extremities. MEDICATION: Current medication includes baclofen 10 mg daily p.r.n., gabapentin 300 mg daily and Percocet 7.5 mg q.i.d. His WING on today?s visit is 20%. He recently had a pacemaker placed. EXAMINATION: Notable for patient having no clinical radiculopathy or myelopathy involving the lower extremities. He has significant pain with lumbar facet joint loading maneuvers on the right side from L1 through L4 with associated myofascial spasm of the lumbar paravertebral muscles. IMPRESSION: Our impression is patient with chronic pain secondary to lumbosacral spondylosis, facet joint loading pain clinically. RECOMMENDATIONS: I recommend proceeding with an RFA of the right L1, L2, L3 and L4 medial branches under fluoroscopic guidance. His last RFA was performed on 09/14/2022 on the right side at L1, L2, L3 and L4, and he reports he had 100% reduction in pain symptoms until approximately three weeks ago. Gone over the details of the procedure with the patient. All his questions answered. He agrees to proceed with the outlined plan. As part of providing excellent, safe, comprehensive care, the following was completed at our patient's visit: 1. A medication reconciliation and review to ensure accurate knowledge of current/active medications, including asking our patients to inform us about any [id number] medications or herbal remedies/nutritional supplements/alternative remedies. 2. A review to specifically ensure our patients have had annual screening for: elevated body mass index (BMI, see intake chart for exact total), tobacco use, screening for depression, and screening for unhealthy alcohol use. When screening is concerning, patients are provided with education and the specific recommendation to discuss the concerning health issue and treatment options with their primary care provider. ASHLEY
--- OUTSIDE RECORDS SUMMARY | 2023-12-27 13:57 | XMS_ITS | CCD ---
Author Organization [facility] Care Team Providers Care Hoop Bending Machine Operator Name Role Phone SIMONE RUIZ Admitting Unavailable SIMONE RUIZ Attending Unavailable ISHMAEL SIOMN Referring Unavailable ISHMAEL SIMON Primary Care Unavailable JEY ELISE Attending Unavailable JEY ELISE Surgeon Unavailable UT Procedure Practitioner Unavailab ISHMAEL [facility] Primary [facility] [...] Unavailable VALENTINO TY Attending Unavailable NADERER, [facility]avail[facility] e VALENTINO TY Referring Unavailable NADERER, ISHMAEL [facility] Unavailabl e AMADOR SON Attending Unavailable NADERER, ISHMAEL [facility] Unavailabl e VALENTINO TY Referring Unavailable AMADOR SON Attending Unavailable NADERER, ISHMAEL [facility] Unavailabl e NADERER, [facility] Unavailabl e MCKENNA NAIMA E Attending Unavaila ble NADERER, [facility] Unavailabl e MCKENNA, NAIMA E Referring Unavaila ble NADERER, ISHMAEL [facility] Unavailabl e AMADOR SON Referring Unavailable NADEREMarilee, ISHMAEL [facility] Unavailkait e ANA M KUMARI Referring Unavailable NADERER, ISHMAEL [facility] UnavailANA M Flores Referring Unavailable NADERER, ISHMAEL [facility] Unavailabl e Medications Current Medications Medication [...] Ordered: 01-Apr-2021 DO Start : 30-Mar-2021 Active [id number] 200 actuat albuterol 0.09 mg/actuat metered dose [...] 07-22-2023 Episodic Other aftercare (1 source) 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 COMPARISON: 08/05/2023 ACCESSION NUMBER(S): [id number] ORDERING CLINICIAN: ANA M KUMARI FINDINGS: Left-sided pacemaker in place. CARDIOMEDIASTINAL SILHOUETTE: Cardiomediastinal silhouette is normal in size and configuration. LUNGS: Lungs are clear. ABDOMEN: No remarkable upper abdominal findings. BONES: No acute osseous changes. IMPRESSION: 1. No evidence of acute cardiopulmonary process. MACRO: None Signed by: Sancho Gross 11/10/2023 8:35 AM Dictation workstation: [id number] [facility] Comment on above: Order Comment: Repor t to [facility] registration on 11/09/2023 at 8:30 AM for chest x-ray and device check prior to appointment with Dr. Sno at 10 AM Cardiac Device Check - Remot neeta 09-26-2023 [facility] Work Phone: Radiology Study observation (narrative) [facility] Work Phone: US.doppler Upper extremity v ein - lefton 08-10-2023 Exam negative for acute deep venous thrombosis in the left upper extremity MACRO: None Signed by: Simone Ramos 08/10/2023 3:07 PM Dictation workstation: [id number] Interpreted By: Simone Ramos, STUDY: VASC US UPPER EXTREMITY VENOUS DUPLEX LEFT; 08/10/2023 2:47 pm INDICATION: Signs/Symptoms: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 COMPARISON: Portable chest 05 August 2023 ACCESSION NUMBER(S): [id number] ORDERING CLINICIAN: NAIMA WRIGHT TECHNIQUE: Vascular ultrasound [...] Portable chest 05 August 2023 ACCESSION NUMBER(S): [id number] ORDERING CLINICIAN: NAIMA WRIGHT TECHNIQUE: Vascular ultrasound [...] left upper extremity MACRO: None Signed by: iSmone Ramos 08/10/2023 3:07 PM Dictation workstation: [id number] [facility] Work Phone: Radiology Study observation (narrative) [facility] Work Phone: US.doppler Upper extremity v ein - leftOrdered By: Simone Ramos on 08-10-2023 [facility] Work Phone: VASC US UPPER EXTREMITY VENO US DUPLEX LEFTon 08-10-2023 [facility] US UPPER EXTREMITY VENOUS DUPLEX LEFT Interpreted By: Simone Ramos, STUDY: [facility] US UPPER EXTREMITY VENOUS DUPLEX LEFT; 08/10/2023 2:47 pm INDICATION: Signs/Symptoms: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 COMPARISON: Portable chest 05 August 2023 ACCESSION NUMBER(S): [id number] ORDERING CLINICIAN: NAIMA WRIGHT TECHNIQUE: Vascular ultrasound [...] Simone Ramos 08/10/2023 3:07 PM Dictation workstation: [id number] [facility] Basic metabolic 2000 panelon 08-05-2023 Anion gap [Moles/Vol] 12 mmol/L 10 - 2 0 mmol/L [facility] Calcium [Mass/Vol] 9.6 mg/dL 8.6 - 10. 3 mg/dL [facility] Chloride [Moles/Vol] 102 mmol/L 98 - 10 7 mmol/L [facility] CO2 [Moles/Vol] 29 mmol/L 21 - 32 mmol/L [facility] Creatinine [Mass/Vol] 1.12 mg/dL 0.50 - 1.30 mg/dL [facility] GFR/1.73 sq M.predicted among non-blacks MDRD (S/P/Bld) [Vol rate/Area] 76 mL/min/{1.73_m2} - PINF [facility] Comment on above: Calculations of yang mated GFR are performed using the 2020 CKD-EPI Study Refit equation without the race variable for the IDMS-Traceable creatinine methods. https://jasn.asnjournals.org/content//ASN.2020 476926 Glucose [Mass/Vol] 95 mg/dL 74 - 99 mg/dL [facility] Interpretation and review of laboratory results Normal [facility] Potassium [Moles/Vol] 4.0 mmol/L 3.5 - 5.3 mmol/L [facility] Sodium [Moles/Vol] 139 mmol/L 136 - 145 mmol/L [facility] Urea nitrogen [Mass/Vol] 17 mg/dL 6 - 23 mg/dL [facility] Anion gap [Moles/Vol] 12 mmol/L Normal 10-20 [facility] Comment on above: Performed By: #### 2 4321-2 #### JAIMEE QURESHI ([id number]) [facility] ([facility]) [address] [place] [address] 87952 Calcium [Mass/Vol] 9.6 mg/dL Normal 8.6-10.3 [facility] Comment on above: Performed By: #### 2 4321-2 #### JAIMEE QURESHI ([id number]) [facility] ([facility]) [address] [place] [address] 14872 Chloride [Moles/Vol] 102 mmol/L Normal 98-107 [facility] Comment on above: Performed By: #### 2 4321-2 #### JAIMEE QURESHI ([id number]) [facility] ([facility]) [address] [place] [address] 32999 CO2 [Moles/Vol] 29 mmol/L Normal 21-32 [facility] Comment on above: Performed By: #### 2 4321-2 #### JAIMEE QURESHI ([id number]) [facility] ([facility]) [address] [place] [address] Creatinine [Mass/Vol] 1.12 mg/dL Normal 0.50-1.30 [facility] Comment on above: Performed By: #### 2 4321-2 #### JAIMEE QURESHI ([id number]) [facility] ([facility]) [address] [place] [address] 99346 Glomerular filtration rate/1.73 sq M.predicted 76 mL/min/1.73m*2 Normal >60 [facility] Comment on above: Result Comment: Calc ulations of estimated GFR are performed using the 2020 CKD-EPI Study Refit equation without the race variable for the IDMS-Traceable creatinine methods. https://jasn.asnjournals.org/content/early/ASN.2020 971788 Performed By: #### 2 4321-2 #### JAIMEE QURESHI ([id number]) [facility] ([facility]) [address] [place] [address] 02433 Glucose [Mass/Vol] 95 mg/dL Normal 74-99 [facility] Comment on above: Performed By: #### 2 4321-2 #### JAIMEE QURESHI (79927) [facility] ([facility]) [address] [place] [address] 65370 Potassium [Moles/Vol] 4.0 mmol/L Normal 3.5-5.3 [facility] Comment on above: Performed By: #### 2 4321-2 #### JAIMEE QURESHI (52848) [facility] ([facility]) [address] [place] [address] 43054 Sodium [Moles/Vol] 139 mmol/L Normal 136-145 [facility] Comment on above: Performed By: #### 2 4321-2 #### JAIMEE QURESHI ([id number]) [facility] ([facility]) [address] [place] [address] 80942 Urea nitrogen [Mass/Vol] 17 mg/dL Normal 6-23 [facility] Comment on above: Performed By: #### 2 4321-2 #### JAIMEE QURESHI ([id number]) [facility] ([facility]) [address] [place] [address] 25663 CBC panel Auto (Bld)on 08-04 Erythrocyte distribution width (RBC) [Ratio] 13.0 % 11.5 - 14.5 % [facility] Hematocrit (Bld) [Volume fraction] 46.9 % 41.0 - 52.0 % [facility] Hemoglobin (Bld) [Mass/Vol] 16.1 g/dL 13.5 - 17.5 g/dL [facility] Interpretation and review of laboratory results Normal [facility] MCH (RBC) [Entitic mass] 31.5 pg 26.0 - 34.0 pg [facility] MCHC (RBC) [Mass/Vol] 34.3 g/dL 32.0 - 36.0 g/dL [facility] MCV (RBC) [Entitic vol] 92 fL 80 - 100 fL [facility] Nucleated RBC/100 WBC (Bld) [Ratio] 0.0 % [facility] Platelets (Bld) [#/Vol] 279 10*3/uL [facility] RBC (Bld) [#/Vol] 5.11 10*6/uL [facility] WBC (Bld) [#/Vol] 8.9 10*3/uL [facility] Erythrocyte distribution width (RBC) [Ratio] 13.0 % Normal 11.5-14.5 [facility] Comment on above: Performed By: #### 5 8410-2 #### JAIMEE QURESHI (42324) [facility] (C) [address] [place] [address] 23076 Hematocrit (Bld) [Volume fraction] 46.9 % Normal 41.0-52.0 [facility] Comment on above: Performed By: #### 5 8410-2 #### JAIMEE QURESHI (78037) [facility] ([facility]) [address] [place] [address] 40226 Hemoglobin (Bld) [Mass/Vol] 16.1 g/dL Normal 13.5-17.5 [facility] Comment on above: Performed By: #### 5 8410-2 #### JAIMEE QURESHI (48504) [facility] ([facility]) [address] [place] [address] 67723 MCH (RBC) [Entitic mass] 31.5 pg Normal 26.0-34.0 [facility] Comment on above: Performed By: #### 5 8410-2 #### JAIMEE QURESHI (59519) [facility] ([facility]) [address] [place] [address] 97686 MCHC (RBC) [Mass/Vol] 34.3 g/dL Normal 32.0-36.0 [facility] Comment on above: Performed By: #### 5 8410-2 #### JAIMEE QURESHI ([id number]) [facility] ([facility]) [address] [place] [address] 50067 MCV (RBC) [Entitic vol] 92 fL Normal 80-100 [facility] Comment on above: Performed By: #### 5 8410-2 #### JAIMEE QURESHI (94115) [facility] ([facility]) [address] [place] [address] 76474 Nucleated RBC/100 WBC (Bld) [Ratio] 0.0 /100 WBCs Normal 0.0-0.0 [facility] Comment on above: Performed By: #### 5 8410-2 #### JAIMEE QURESHI ([id number]) [facility] ([facility]) [address] [place] [address] 81449 Platelets (Bld) [#/Vol] 279 x10*3/uL Normal 150-450 [facility] Comment on above: Performed By: #### 5 8410-2 #### JAIMEE QURESHI ([id number]) [facility] ([facility]) [address] [place] [address] 26358 RBC (Bld) [#/Vol] 5.11 x10*6/uL Normal 4.50-5.90 [facility] Comment on above: Performed By: #### 5 8410-2 #### JAIMEE QURESHI (02034) [facility] ([facility]) [address] [place] [address] 65149 WBC (Bld) [#/Vol] 8.9 x10*3/uL Normal 4.4-11.3 [facility] Comment on above: Performed By: #### 5 8410-2 #### JAIMEE QURESHI (05094) [facility] ([facility]) [address] [place] [address] 34964 Electrophysiology studyon [facility] Work Phone: PT and aPTT panel Coag (PPP) on 08-05-2023 aPTT Coag (PPP) [Time] 34 s [facility] INR Coag (PPP) [Relative time] 1.0 {INR} 0.9 - 1.1 [facility] Interpretation and review of laboratory results Normal [facility] PT Coag (PPP) [Time] 11.0 s [facility] The APTT is no longer used for monitoring Unfractionated Heparin Therapy. For monitoring Heparin Therapy, use the Heparin Assay. [facility] aPTT Coag (PPP) [Time] 34 s Normal 27-38 [facility] Comment on above: Order Comment: The A PTT is no longer used for monitoring Unfractionated Heparin Therapy. For monitoring Heparin Therapy, use the Heparin Assay. Performed By: #### 3 4529-8 #### JAIMEE QURESHI (20403) [facility] ([facility]) [address] [place] [address] 84815 INR Coag (PPP) [Relative time] 1.0 Normal 0.9-1.1 [facility] Comment on above: Order Comment: The A PTT is no longer used for monitoring Unfractionated Heparin Therapy. For monitoring Heparin Therapy, use the Heparin Assay. Performed By: #### 3 4529-8 #### JAIMEE QURESHI (79379) [facility] ([facility]) [address] [place] [address] 26327 PT Coag (PPP) [Time] 11.0 s Normal 9.8-12.8 [facility] Comment on above: Order Comment: The A PTT is no longer used for monitoring Unfractionated Heparin Therapy. For monitoring Heparin Therapy, use the Heparin Assay. Performed By: #### 3 4529-8 #### JAIMEE QURESHI (26104) [facility] ([facility]) [address] [place] [address] 84679 TRANSTHORACIC ECHO (TTE) COM Amarilis 08-05-2023 TRANSTHORACIC ECHO (TTE) COMPLETE [address] [address] TRANSTHORACIC ECHOCARDIOGRAM REPORT Patient Name: LILIANA Priest BRANDO Reading Physician: [id number] Batsheva Morris MD, [facility] Study Date: 08/05/2023 Ordering Provider: [id number] ANA M SALINAS MRN/PID: [id number] Fellow: Nurse: Date of /Age: 10 1965 / 58 Tree Expert: Eli Pisano RDCS Gender: M Additional Staff: Height: 162.56 cm Admit Date: Weight: 90.72 kg Admission Status: Outpatient BSA / BMI: 1.96 m2 / 34.33 Department Location: [place] [address] Echo Lab Blood Pressure: 128 /73 mmHg Study Type: TRANSTHORACIC ECHO (TTE) COMPLETE Diagnosis/ICD: Bradycardia, unspecified-R00.1 Indication: Abnormal EKG, Pre-EP CPT Codes: Echo Complete w Full Doppler-93360 Study Detail: The following Echo studies were [...] LA Area A2C: 18.9 cm2 [place] A4C: 5.8 cm [place] A2C: 5.5 cm LA Volume Index: 27.0 [...] 1.3 m/s (0.6-0.9m/s) PV Max P.6 mmHg [id number] Batsheva Morris MD, FACC Electronically signed on 08/05/2023 at 2:30:14 PM Final Normal [facility] US Heart TransthoracicOrdere d By: Batsheva Morris on 08-05-2023 Aortic Valve Area by Continuity of Peak Velocity 2.42 cm2 [facility] Work Phone: Aortic Valve Area by Continuity of VTI 2.62 cm2 [facility] Work Phone: AV mn grad 4.0 mmHg [facility] Work Phone: AV pk grad 8.2 mmHg [facility] Work Phone: AV pk abiodun 1.43 m/s [facility] Work Phone: LA vol index A/L 29.3 ml/m2 [facility] Work Phone: LV A4C EF 62.4 [facility] Work Phone: LV biplane EF 60 % [facility] Work Phone: LVIDd 5.28 cm [facility] Work Phone: LVOT diam 2.00 cm [facility] Work Phone: MV avg E/e' ratio 7.78 [facility] Work Phone: MV E/A ratio 0.88 [facility] Work Phone: RV free wall pk S' 15.40 cm/s [facility] Work Phone: RVSP 23.4 mmHg [facility] Work Phone: Tricuspid annular plane systolic excursion 3.6 cm [facility] Work Phone: [facility] Work Phone: US Heart Transthoracicon [place] [id number] TRANSTHORACIC ECHOCARDIOGRAM REPORT Patient Name: LILIANA Quiñones Physician: [id number] Morris MD, [facility] Study Date: 08/05/2023 Ordering Provider: [id number] ANA M SALINAS MRN/PID: [id number] Fellow: Nurse: Date of /Age: 10 1965 / 58 Tree Expert: Eli Pisano RDCS Gender: M Additional Staff: Height: 162.56 cm Admit Date: Weight: 90.72 kg Admission Status: Outpatient BSA / BMI: 1.96 m2 / 34.33 Department Location: [place] [address] Echo Lab Blood Pressure: 128 /73 mmHg Study Type: TRANSTHORACIC ECHO (TTE) COMPLETE Diagnosis/ICD: Bradycardia, unspecified-R00.1 Indication: Abnormal EKG, Pre-EP CPT Codes: Echo Complete w Full Doppler-29543 Study Detail: The following Echo studies were [...] LA Area A2C: 18.9 cm2 [place] A4C: 5.8 cm [place] A2C: 5.5 cm LA Volume Index: 27.0 [...] not included)... Batsheva Alexander MD - 08/05/2023 [place] [address] TRANSTHORACIC ECHOCARDIOGRAM REPORT Patient Name: LILIANA BIRDGESTIRSO Reading Physician: [id number] Batsheva Morris MD, [facility] Study Date: 08/05/2023 Ordering Provider: [id number] ANA M SALINAS MRN/PID: [id number] Fellow: Nurse: Date of /Age: 10 1965 Tree Expert: Eli Pisano RDCS Gender: M Additional Staff: Height: 162.56 cm Admit Date: Weight: 90.72 kg Admission Status: Outpatient BSA / BMI: 1.96 m2 / 34.33 Department Location: [place] [address] Echo Lab Blood Pressure: 128 /73 mmHg Study Type: TRANSTHORACIC ECHO (TTE) COMPLETE Diagnosis/ICD: Bradycardia, unspecified-R00.1 Indication: Abnormal EKG, Pre-EP CPT Codes: Echo Complete w Full Doppler-27365 Study Detail: The following Echo studies were [...] LA Area A2C: 18.9 cm2 [place] A4C: 5.8 cm [place] A2C: 5.5 cm LA Volume Index: 27.0 [...] 1.3 m/s (0.6-0.9m/s) PV Max P.6 mmHg [id number] Batsheva Morris MD, [facility] Electronically signed on 08/05/2023 at 2:30:14 PM Final [facility] Work Phone: XR CHEST 1 VIEWon 08-05-2023 XR CHEST 1 VIEW Interpreted By: Salvatore Clark, STUDY: XR CHEST 1 VIEW INDICATION: Signs/Symptoms:post implant. COMPARISON: None ACCESSION NUMBER(S): [id number] ORDERING CLINICIAN: ANA M KUMARI FINDINGS: No consolidation, effusion, edema, or pneumothorax. Pacemaker placed without pneumothorax. Position satisfactory. IMPRESSION: Status post pacemaker placement. Signed by: Salvatore Clark 08/05/2023 6:10 PM Dictation workstation: [id number] [facility] Comment on above: Order Comment: Vahe heard. XR Chest Single viewon 08-04 Status post pacemaker placement. Signed by: Salvatore Clark 08/05/2023 6:10 PM Dictation workstation: [id number] [facility] MMODAL Interpreted By: Salvatore Clark, STUDY: XR CHEST 1 VIEW INDICATION: Signs/Symptoms:post implant. COMPARISON: None ACCESSION NUMBER(S): [id number] ORDERING CLINICIAN: ANA M KUMARI FINDINGS: No consolidation, effusion, edema, or pneumothorax. Pacemaker placed without pneumothorax. Position satisfactory. [facility] MMODAL Salvatore Clark MD - 08/05/2023 Interpreted By: Salvatore Clark, STUDY: XR CHEST 1 VIEW INDICATION: Signs/Symptoms:post implant. COMPARISON: None ACCESSION NUMBER(S): [id number] ORDERING CLINICIAN: ANA M KUMARI FINDINGS: No consolidation, effusion, edema, or pneumothorax. Pacemaker placed without pneumothorax. Position satisfactory. IMPRESSION: Status post pacemaker placement. Signed by: Salvatore Clark 08/05/2023 6:10 PM Dictation workstation: [id number] [facility] Work Phone: Radiology Study observation (narrative) [facility] Work Phone: XR Chest Single viewOrdered By: Salvatore Clark on 08-05-2023 [facility] Work Phone: ECG 12 lead (Clinic Performe d)on 07-22-2023 EKG shows marked sinus bradycardia rate of 41 bpm QRS ration 100 ms QT corrected he had a 91 ms. Rhythm strip shows the same pattern. [facility] Work Phone: CT LUNG CANCER SCREENINGon [...] by: BATSHEVA ALVARADO Date: 2022-07-15 12:10 Normal [facility] Office Visit (Cardiology)on 07-14-2022 Follow-up visit [...] we can help. You may also call [phone] for free resources and assistance.; Status:Complete - Retrospective Authorization; Done: [id number] Patient Instructions Please bring all medicines, vitamins, [...] with ekg REtrieve heart cath Chief Complaint LILIAAN MICHAELS is being seen for a month [...] ischemic evaluation. He underwent cardiac catheterization in [place] which showed no significant obstructive disease 3. [...] BY MOUTH FOUR TIMES A DAY NEEDED Cfqzrd3n at bedtime Singulair 10 MG Oral TabletTAKE [...] Recorded: 14Jul2022 10:57AM Heart Rate34, L Radial Mdsayqxj984, LUE, Sitting Qyxphkmkv26, LUE, Sitting Height5 ft 4 in Xvuwmh675 lb BMI Aoiukrcfnl60.96 kg/m2 BSA Calculated1.92 Tobacco Usea) Yes Patient encouraged to st (more content not included)... Normal GitHub Tobacco Screening.on 023 Adult depression screening assessment No [facility] [employer] DO Work Phone: Fall risk assessment a) No falls within the last year [facility] [employer] DO Work Phone: Tobacco use status CPHS a) Yes [facility] [employer] DO Work Phone: Tobacco Screening. Yes [facility] [employer] [address] DO Work Phone: CT ABD/PELV W [...] by: FLEX JACOBS Date: 2022-06-11 10:06 Normal [facility] CBC AUTO DIFFon 05-07-2022 BASO # 0.1 103/ul Normal 0.0-0.1 [facility] Comment on above: Performed By: #### C BC #### [facility] [address] [place], [place] [address] Dr. Britt Mendoza Basophils/100 WBC (Bld) 1.6 % Normal 0.2-2.0 [facility] Comment on above: Performed By: #### C BC #### [facility] [address] [place], [place] [address] Dr. Britt Mendoza EO # 0.2 103/ul Normal 0.0-0.7 [facility] Comment on above: Performed By: #### C BC #### [facility] [address] [place] [address] Dr. Britt Mendoza Eosinophils/100 WBC (Bld) 3.0 % Normal 0.9-7.0 [facility] Comment on above: Performed By: #### C BC #### [facility] [address] [place] [address] Dr. Britt Mendoza Erythrocyte distribution width (RBC) [Ratio] 12.4 % Normal 11.0-15.0 [facility] Comment on above: Performed By: #### C BC #### [facility] [address] [place] [address] Dr. Britt Mendoza Hematocrit (Bld) [Volume fraction] 43.2 % Normal 42.0-54.0 [facility] Comment on above: Performed By: #### C BC #### [facility] [address] [place] [address] Dr. Britt Mendoza Hemoglobin (Bld) [Mass/Vol] 14.7 g/dL Normal 14.0-18.0 [facility] Comment on above: Performed By: #### C BC #### [facility] [address] [place] [address] Dr. Britt Mendoza IG # 0.11 10e3/ul Critically high 0.00-0.03 [facility] Comment on above: Performed By: #### C BC #### [facility] [address] [place] [address] Dr. Britt Mendoza IG % 1.4 % Critically high 0.0-0.5 [facility] Comment on above: Performed By: #### C BC #### [facility] [address] [place] [address] Dr. Britt Mendoza LYMPH # 1.7 103/ul Normal 1.2-3.8 [facility] Comment on above: Performed By: #### C BC #### [facility] [address] [place] [address] Dr. Britt Mendoza Lymphocytes/100 WBC (Bld) 21.6 % Normal 20.5-60.0 [facility] Comment on above: Performed By: #### C BC #### [facility] [address] [place] [address] Dr. Britt Mendoza MANUAL DIFF REQ NO Normal [facility] Comment on above: Performed By: #### C BC #### [facility] [address] [place] [address] Dr. Britt Mendoza MCH (RBC) [Entitic mass] 31.2 pg Normal 25.9-34.0 [facility] Comment on above: Performed By: #### C BC #### [facility] [address] [place] [address] Dr. Britt Mendoza MCHC (RBC) [Mass/Vol] 34.0 g/dL Normal 29.9-35.2 [facility] Comment on above: Performed By: #### C BC #### [facility] [address] [place] [address] Dr. Britt Mendoza MCV (RBC) [Entitic vol] 91.7 fL Normal 80.0-94.0 [facility] Comment on above: Performed By: #### C BC #### [facility] [address] [place] [address] Dr. Britt Mendoza MONO # 0.5 103/ul Normal 0.3-0.8 [facility] Comment on above: Performed By: #### C BC #### [facility] [address] [place] [address] Dr. Britt Mendoza Monocytes/100 WBC (Bld) 6.8 % Normal 1.7-12.0 [facility] Comment on above: Performed By: #### C BC #### [facility] [address] [place] [address] Dr. Britt Mendoza NEUT # 5.0 103/ul Normal 1.4-6.5 [facility] Comment on above: Performed By: #### C BC #### [facility] [address] [place] [address] Dr. Britt Mendoza Neutrophils/100 WBC (Bld) 65.6 % Normal 43.0-75.0 [facility] Comment on above: Performed By: #### C BC #### [facility] [address] [address] [address] Britt Mendoza Platelet mean volume (Bld) [Entitic vol] 9.7 fL Normal 9.5-13.5 [facility] Comment on above: Performed By: #### C BC #### [facility] [address] [address] [address] Britt Mendoza PLT 244 103/ul Normal 150-450 [facility] Comment on above: Performed By: #### C BC #### [facility] [address] [address] [address] Britt Mendoza RBC 4.71 106/ul Normal 4.70-6.10 [facility] Comment on above: Performed By: #### C BC #### [facility] [address] [address] [address] Britt Mendoza WBC 7.6 103/ul Normal 4.0-11.0 [facility] Comment on above: Performed By: #### C BC #### [facility] [address] [address] [address] Britt Mendoza GLYCOHEMOGLOBIN A1Con 2021 ADA RECOMMENDATION SEE BELOW Normal [facility] Comment on above: Result Comment: ADA RECOMMENDED LIMIT 4.0 - 6.0 ADA THERAPEUTIC TARGET < 7.0 ACTION SUGGESTED > 7.0 Performed By: #### A 1C ####[facility] [place] [facility] [address] [address]Dr. Britt Mendoza Glucose [Mass/Vol] 117 mg/dL Normal [facility] Comment on above: Performed By: #### A 1C ####[facility] [address] [id number]. Britt Mendoza HbA1c (Bld) [Mass fraction] 5.7 % Normal 4.5-6.2 [facility] Comment on above: Performed By: #### A 1C ####[facility] [place] [facility] [address] [address]Dr. Britt Mendoza LIPID PROFILEon 05-07-2022 CHOL-HDL RATIO NORM SEE BELOW Normal [facility] Comment on above: Result Comment: 3.3 - 4.4 LOW RISK 4.4 - 7.1 AVERAGE RISK 7.1 - 11.0 MODERATE RISK >11.0 HIGH RISK Performed By: #### B MP, LIVER, LIPID, TSH ####[facility] [facility] [address] [id number]. Britt Mendoza Cholesterol [Mass/Vol] 235 mg/dL Critically high <=200 [facility] Comment on above: Performed By: #### B MP, LIVER, LIPID, TSH ####[facility] [address] [id number]. Britt Mendoza Cholesterol in HDL [Mass/Vol] 40 mg/dL Normal 40-60 [facility] Comment on above: Performed By: #### B MP, LIVER, LIPID, TSH ####[facility] [address] [id number]. Britt Mendoza Cholesterol in LDL [Mass/Vol] 156.8 mg/dL Normal [facility] Comment on above: Performed By: #### B MP, LIVER, LIPID, TSH ####[facility] [place] [facility] [address] [id number]. Britt Mendoza Cholesterol.total/Viola sterol in HDL [Mass ratio] 5.9 {ratio} Normal [facility] Comment on above: Performed By: #### B MP, LIVER, LIPID, TSH ####[facility] [place] [facility] [address] [id number]. Britt Mendoza HDL NORMAL > or = 60 mg/dl - LOW CARDIOVASCULAR RISK <40 mg/dl - HIGH CARDIOVASCULAR RISK Normal [facility] Comment on above: Performed By: #### B MP, LIVER, LIPID, TSH ####[facility] [facility] [address] [id number]. Britt Mendoza LDL CALC NORMAL SEE BELOW Normal [facility] Comment on above: Result Comment: <100 mg/dl OPTIMAL 100 - 129 mg/dl NEAR OR ABOVE OPTIMAL 130 - 159 mg/dl BORDERLINE HIGH 160 - 189 mg/dl HIGH >190 mg/dl VERY HIGH Performed By: #### B MP, LIVER, LIPID, TSH ####[facility] [place] [facility] [address] [address]Dr. Britt Mendoza Triglyceride [Mass/Vol] 191 mg/dL Critically high <=150 [facility] Comment on above: Performed By: #### B MP, LIVER, LIPID, TSH ####[facility] [address] [address]Dr. Britt Mendoza VLDL CALC 38.2 mg/dL Normal [facility] Comment on above: Performed By: #### B MP, LIVER, LIPID, TSH ####[facility] [facility] [address] [address]Dr. Britt Mendoza LIVER PROFILEon 05-07-2022 Albumin [Mass/Vol] 3.6 g/dL Normal 3.4-5.0 [facility] Comment on above: Performed By: #### B MP, LIVER, LIPID, TSH ####[facility] [address] [address]Dr. Britt Mendoza Albumin/Globulin [Mass ratio] 1.1 {ratio} Normal [facility] Comment on above: Performed By: #### B MP, LIVER, LIPID, TSH ####[facility] [address] [place], [place] [address]Dr. Britt Mendoza ALP [Catalytic activity/Vol] 84 U/L Normal 46-116 [facility] Comment on above: Performed By: #### B MP, LIVER, LIPID, TSH ####[facility] [address] [address]Dr. Britt Mendoza ALT [Catalytic activity/Vol] 34 U/L Normal 16-63 [facility] Comment on above: Performed By: #### B MP, LIVER, LIPID, TSH ####[facility] [address] [address]Dr. Britt Mendoza AST [Catalytic activity/Vol] 21 U/L Normal 15-37 [facility] Comment on above: Performed By: #### B MP, LIVER, LIPID, TSH ####[facility] [facility] [address] [address]Dr. Britt Mendoza BILI, CONJUGATED 0.1 mg/dL Normal 0.0-0.2 [facility] Comment on above: Performed By: #### B MP, LIVER, LIPID, TSH ####[facility] [address] [address]Dr. Britt Mendoza Bilirubin [Mass/Vol] 0.4 mg/dL Normal 0.2-1.0 [facility] Comment on above: Performed By: #### B MP, LIVER, LIPID, TSH ####[facility] [facility] [address] [address]Dr. Britt Mendoza Globulin (S) [Mass/Vol] 3.4 g/dL Normal [facility] Comment on above: Performed By: #### B MP, LIVER, LIPID, TSH ####[facility] [place] [facility] [address] [address]Dr. Britt Mendoza Protein [Mass/Vol] 7.0 g/dL Normal 6.4-8.2 [facility] Comment on above: Performed By: #### B MP, LIVER, LIPID, TSH ####[facility] [facility] [address] [address]DrAtiay Mendoza PROF CHEM 8 (BAS METB)on Anion gap [Moles/Vol] 13.8 mmol/L Normal [facility] Comment on above: Result Comment: Prev iously reported as: -2.3 On 05/07/2022 13:50 By DM9 Performed By: #### B MP, LIVER, LIPID, TSH #### [facility] [address] [address] [address] Britt Mendoza Calcium [Mass/Vol] 9.2 mg/dL Normal 8.5-10.1 [facility] Comment on above: Performed By: #### B MP, LIVER, LIPID, TSH #### [facility] [address] [address] [address] Britt Mendoza Chloride [Moles/Vol] 99 mmol/L Normal 98-107 [facility] Comment on above: Result Comment: Prev iously reported as: 106 On 05/07/2022 13:50 By DM9 Performed By: #### B MP, LIVER, LIPID, TSH #### [facility] [address] [address] [address] Britt Mendoza CO2 [Moles/Vol] 27.3 mmol/L Normal 21.0-32.0 [facility] Comment on above: Result Comment: Prev iously reported as: 29.2 On 05/07/2022 13:50 By DM9 Performed By: #### B MP, LIVER, LIPID, TSH #### [facility] [address] [address] [address] Britt Mendoza Creatinine [Mass/Vol] 1.12 mg/dL Normal 0.70-1.30 [facility] Comment on above: Performed By: #### B MP, LIVER, LIPID, TSH #### [facility] [address] [address] [address] Britt Mendoza EGFR-AF ISRAELI >60 Normal >=60 [facility] Comment on above: Performed By: #### B MP, LIVER, LIPID, TSH #### [facility] [address] [address] [address] Britt Mendoza EGFR-NON AF ISRAELI >60 Normal >=60 [facility] Comment on above: Performed By: #### B MP, LIVER, LIPID, TSH #### [facility] [address] [address] [address] Britt Mendoza Glucose [Mass/Vol] 108 mg/dL Critically high 74-106 [facility] Comment on above: Performed By: #### B MP, LIVER, LIPID, TSH #### [facility] [address] [address] [address] Britt Mendoza Potassium [Moles/Vol] 4.1 mmol/L Normal 3.5-5.1 [facility] Comment on above: Result Comment: Prev iously reported as: 3.9 On 05/07/2022 13:50 By DM9 Performed By: #### B MP, LIVER, LIPID, TSH #### [facility] [address] [address] [address] Britt Mendoza Sodium [Moles/Vol] 136 mmol/L Normal 136-145 [facility] Comment on above: Result Comment: Prev iously reported as: 129 On 05/07/2022 13:50 By DM9 Performed By: #### B MP, LIVER, LIPID, TSH #### [facility] [address] [address] [address] Britt Mendoza Urea nitrogen [Mass/Vol] 26.0 mg/dL Critically high 7.0-18.0 [facility] Comment on above: Performed By: #### B MP, LIVER, LIPID, TSH #### [facility] [address] [address] [address] Britt Mendoza Urea nitrogen/Creatinine [Mass ratio] 23.2 mg/mg Normal [facility] Comment on above: Performed By: #### B MP, LIVER, LIPID, TSH #### [facility] [address] [address] [address] Britt Mendoza TSHon 05-07-2022 TSH 0.828 uIU/mL Normal 0.358-3.740 [facility] Comment on above: Performed By: #### B MP, LIVER, LIPID, TSH ####[facility] [address] [address]Dr. Britt Mendoza VITAMIN D 25 OHon 05-07-2022 VIT D 25-OH 45.6 ng/mL Normal [facility] Comment on above: Performed By: #### V BRENDAN, PSASC #### [facility] [address] [place] [address] Dr. Britt Mendoza VIT D RANGES SEE BELOW Normal [facility] Comment on above: Result Comment: <20 ng/mL Vit D deficient 20 - <30 ng/mL Vit D insufficient 30 - 100 ng/mL Vit D sufficient >100 ng/mL Potential Toxicity Performed By: #### V BRENDAN, PSASC #### [facility] [address] [address] [address] Britt Mendoza Covid-19 PCR (CVDTBH)on SARS-CoV-2 (COVID-19) RNA KATT+probe Ql (Unsp spec) Detected Critically abnormal NOT DETECTED [facility] Comment on above: Result Comment: This test is not yet approved or cleared by the [place] FDA. When there are no FDA-approved or cleared tests available, and other criteria are met, FDA can make tests available under an emergency access mechanism called an Emergency Use Authorization (EUA). The EUA for this test is supported by the [place] of Health and Human Service's declaration that [...] longer be used). Performed By: #### C [facility] ####[facility] [address] [address]Dr. Britt Mendoza Cardiac Stress Test 2021 Cardiac Stress Test [address], [address] [address] Exercise Stress Test Patient Name: LILIANA MICHAELS Ordering Physician: [id number] Ty MD Study Date: 02/15/2022 Reading Physician: Melanie Ty MD MRN/PID: [id number] Supervising Physician: [id number] Yovani Rivera MD Accession/Order#: [id number] Referring Physician: VALENTINO TY Date of : 1965 PCP: Ishmael Simon Gender: M Fellow: Height: 162.56 cm Nurse: Yunior Bhatti RN Weight: 81.65 kg Tree Expert: SAEID BSA: 1.87 m2 Technologist: BMI: 30.90 kg/m2 Additional Staff: Age: 56 years cc report to: Patient Location: report to: [id number] Ty MD Study Type: Cardiac Stress Test Diagnosis/ICD: R94.31-Abnormal electrocardiogram [ECG] [EKG]; R00.1-Bradycardia, unspecified; R06.00-Dyspnea, unspecified Indication: Dyspnea Procedure/CPT: Stress Test Interpretation-57780 ; Stress Test Supervision-[id number] Falls Risk: Low: Patient has low risk [...] 7. An element of chronotropic incompetency noted. [id number] Valentino Ty MD Electronically signed on 02/16/2022 at 2:52:20 PM Final Normal [facility] Cardiac Stress Test Please click on the link to view the study images [facility] Work Phone: Cardiac Stress Test MP-[facility] 250 DO Work Phone: Office [...] Status:Hold For - Scheduling,Retrospec tive Authorization; Requested for:[id number]; Class 1 obesity with body mass index (BMI) of 30.0 to 30.9 in adult Healthy Weight Tips; Status:Complete - Retrospective Authorization; Done: [id number] Some eating tips that can help you lose weight.; Status:Complete - Retrospective Authorization; Done: [id number] Sinus bradycardia You need to stop smoking. Though it is not easy, more than half of all adult smokers have quit. We encourage you to write down all the reasons you should quit smoking and set a quit date for yourself. Ask us how we can help. You may also call 6-730-CZWPNOW for free resources and assistance.; Status:Complete - Retrospective Authorization; Done: [id number] SocHx: Current smoker Continue with our present treatment plan.; Status:Complete - Retrospective Authorization; Done: [id number] Tobacco Use Screening; Status:Complete; Done: [id number] Patient Instructions Please bring all medicines, vitamins, [...] This led to a cardiac evaluation in [place] and its not clear to me whether [...] Oral Capsule Delayed ReleaseTAKE 1 CAPSULE Daily Vxzecs8i at bedtime Sin (more content not included)... Normal GitHub Tobacco Screening.on 022 Adult depression screening assessment No [facility] [employer] 600 DO Work Phone: Fall risk assessment a) No falls within the last year [facility] [employer] 600 DO Work Phone: Tobacco use status CPHS a) Yes M [facility] 600 DO Work Phone: Tobacco Screening. Yes [facility] 600 DO Work Phone: Covid-19 PCR (CVDTBH)on SARS-CoV-2 (COVID-19) RNA KATT+probe Ql (Unsp spec) Not detected Normal NOT DETECTED [facility] Comment on above: Result Comment: This test is not yet approved or cleared by the [place] FDA. When there are no FDA-approved or cleared tests available, and other criteria are met, FDA can make tests available under an emergency access mechanism called an Emergency Use Authorization (EUA). The EUA for this test is supported by the [place] of Health and Human Service's (HHS's) declaration [...] consistent with SARS-CoV-2. Performed By: #### C [facility] #### [facility] [address] [place] [address] Dr. Britt Mendoza Covid-19 PCR (CVDTBH)on 11-07 SARS-CoV-2 (COVID-19) RNA KATT+probe Ql (Unsp spec) Not detected Normal NOT DETECTED [facility] Comment on above: Result Comment: This test is not yet approved or cleared by the [place] FDA. When there are no FDA-approved or cleared tests available, and other criteria are met, FDA can make tests available under an emergency access mechanism called an Emergency Use Authorization (EUA). The EUA for this test is supported by the [place] of Health and Human Service's (HHS's) declaration [...] consistent with SARS-CoV-2. Performed By: #### C [facility] ####[facility] [place] [facility] [address] [place], [place] [address]Tx. Britt Mendoza XR CHEST 2 Von 10-01-2021 [...] by: FLEX JACOBS Date: 2021-10-01 09:30 Normal [facility] Ambulatory Clinical Summaryo n 03-05-2021 Ambulatory Clinical Summary {[id number]}CD:800161 Normal [facility] Historical Records Officeon 03-05-2021 Historical Records Office [phone] #1.00CD:[address] [facility] Patient Educationon 20 21 Patient Education Urology [...] these instructions at home: Medicines ? Take upgl-iwb-dyoygsh and prescription medicines only as told by [...] order. Ordered: Office Visit Level 4 Est 79192 2. Hypogonadism male (E29.1: Testicular hypofunction) noted [...] time. Ordered: Office Visit Level 4 Est 88329 3. BPH with urinary obstruction (N40.1: Benign prostatic hyperplasia with lower urinary tract symptoms) s/p Urolift September 2018. Pt is currently taking no bladder/prostate medication and is mostly satisfied with overall symptom control. has nocturia but attributes this to diuretics. Pt prefers to continue with no changes at this time. PCP checking PSAs per pt. Ordered: Office Visit Level 4 Est 06325 Orders: Urnls Dip Stick Auto w/o Microscopy POC 23655 offered f/u 1 yr but pt prefers PRN. Total time spent reviewing previous notes/results/family practice nurse practitioner al documents, preparing the chart, conducting the encounter with the patient and family, ordering tests/medications, and documenting the encounter was 30 minutes. Follow-up With When Contact Information ITA SLOAN, SIMONE Priest [address] [place] [address]- Additional Instructions: Patient Education Erectile Dysfunction Problem [...] PELVIS WO CONTRASTon MRI PELVIS WO CONTRAST [facility] Department of Radiology [address] [place] [id number] Patient Name: LILIANA MICHAELS : 1965 Sex: M Age: Race: White Pt. Location: 18 Patient Status: Ordered Date: 09/10/2020 3:35:00 PM Completed Date: 10/03/2020 08:34 AM Requesting Provider: SIMONE RUIZ Attending Provider: Report Copy To: Signs & Symptoms: R10.2 Pelvic and perineal pain I10 History: Lenore, Right FOREIGN per clinic will fax HOME [facility] auth# [id number] 09/16/20-10/17/20 cpt code 04019 *mla Comments: Right groin to r/o an [...] spine. Electronically signed: Dinh Miller. Transcribed by: [email or web address], User Resident: Electronically Signed by: DINH MILLER @ 10/03/2020 09:57 AM Normal [facility] Comment on above: Order Comment: Right groin to r/o an adductor tear; iliopsoas bursitis or injury Operative Reporton Operative Report MR#: [id number] [facility] Pt. Name: Liliana Michaels Room #: [...] Ruiz MD Date Trans: 09/10/2020 11:40 P/eva DN_JN:[id number] cc: Ishmael Simon M.D. [address] [facility] [address] [facility] Coding Summary.on 09-01-2020 Coding Summary. CD:[id number]:[id number] Gh0bWw+PGhlYWQ+PE1FV XCzE47jjQMviC3AK0fGV W4DTFJYTRUVZY3ADL9vg JQ6DVzsH2OmheZw UckbqBYeWW90PYt6LVK0 wNonXCpykM3tuIXvR6q4 QtSdGE95iO64VXnmBUZi EhO3AtEqibhxlNFl Q4sfFmZsdWFwWfb+PHRh YmxlIHdpZHRoPScxMDAl UpEvnGbfTJ8gBw2kPJWz LWNvbGxhcHNlOiBj m0tmVYRyYMyaEB1hpOns H9CjxRF4FYIbf4c3Nf80 dHI+STAlQBR5xClgWWxp k859QwYho2yiQFB8 xCGoFUzkDBR7U05ug9P8 PMGtGQNfXBB2lSK6gA8r hNvkgninY1QrxXLrOaJ3 CTL2zDKkyG7uuSjb digdrG6iGay+V69QBU3H TQHSCH0KGvc2Q6BpBgca dHI+DW05UFCvPR67rECu pHYcg9wfqDk4MkBw WUUcRII3iWrlICwqn1Oo AMPuY87mtCFyb5H2ZQLb tFkrxLMfEmKulIW0nV7n EDgvznfqn9oefdfm Tlmtq2gjen78oR55F40o AOedEHWiAWG9EGNaJKPs aGidmu3kkF4mQc3+IDxj l7boi3zsiJw4RxHw NVYztxSilOmqTUM8p8Zq Br29N8GjxQfkg2UfSyn8 zn86qXXjb9F4pJS7BCju SKZgjW8zNRczKxS5 UVNlYkAbmB78vPZoKTbw Pz7baPyivIgrFN4oMVFo cpmkXNZxjJ1mTEZvyTLs zKhsKU7rZAAfzxjl c538TbXvCBT8WNSziSSl P7QjxN9cNgJiPUDePYEo Y7XinHRgLVkiR857LRfd JkQ8GYGuxjYbC8Xh XKBtnQbpXqK3x9A7Dq8J l9UvwcekTMC1NSmtGXS0 RaN2WaEgWdT4N7BaMwg4 FGLsrKwjAU5jW3Ly CZIvyxjfekbqfVS8PIAj EQZwmX72pDQxRTjbYd8i r1A2q819MQYpJLVnxS51 Am2bcNanHQOgcISD iF3texlwf2tvrxvmMwCg IPSyCSk9RQx3FSVtxEhr RaNiBNW3OsJ9UOL6iKNu oR9ogEvxwadgsS2c Oyc+W00gpZ8hYUD8ZMZ9 rkstJUXcvhNuOA16LR33 V5OjNepyhWRgxCV+PGRp ywDodUguVJ1dDnSe z7bok8SbIViiM1AoIMKd OMfbQyw0SJXcAES3oVC4 mS4tTQFzOOctr5R4wGK7 Z3UazrHpoj0hh1rr WNHlHHldT69jeQUpm0C9 TLAvkAO3VRLlyNmrEbWt uJ05Qky+TLAecTgvf4Ko Sxjmf7hpg2rsmSj6 IjMwJSIgdmFsaWduPSJ0 e7OxEo87A44fYWpaCXPa HEEmPLToSDKhrJqnip3x tO2rJc7+PGNvbCB3 oOX7lA4vGHWvYhU8ONxk L256YtTcvTFwJnwee1go s2zdmVf2TtHfJCSmccIe oKdqQGZ6m6NmJh29 X70bMMfnSAYlTDTyLNVq CJLidPsonh1ieR4kGi6+ BG5kr1plsf39jI70oEV+ JLGqZIL7lZjiIBou FCXuaT6iGCggAeT8VMLx IeGxeP78iHErEZatRc4d jJmrqLgaUM9iOWLbjyng c245OuAqx6xzNYYj sCCaDAslAYO1C18de3W1 ECPpBMYzPKH7wMS3mQ3p bGlnbjogbGVmdDsgdmVy nNjzHZfoUFihC769 IHRvcDsnPlBhdGllbnQg XmUoBBs2Y5DcIor8WBYb fOdvUS6dgXSqJZxjBx0a iOqolXrpID6yWAXv uvejr658GmJgw3zeVQCx mAWlOCjrVTK1H78ji5C1 HTWsNEVdXYW0uCK7uG7i bGlnbjogbGVmdDsg rtYomCuaYWrwPFqmB992 IHRvcDsnPkJpcnRoIERh vRQ6BE11OB04cNLgp7E3 pQO9R1JlYLDrtunc kciwoIU0XKFkTVTonF22 Gp6nzSwiQx4uTLJlZVP5 QTSdcBHeY1BwvM9dKhOt QRIaBRRxR3MmcKTb TIshW209VYlcKxT0SYIy woWbD9TnKFQvrAlrFpL2 r0Y3Je7GG9T4SE26IE14 sUDkr4N7rIY6V7Fx EJFnkxjnjqyysAW9RMCr TLApdD50Ou1rpOijZi4s FYNrGRI3PFCpiGChZ4Xe yP0cZdEvCXSmXEEx O6CrxSAcXIvoS667IHbe MzC7GWCfwfXiA2RiRNSa bVtnJtC3p2W6Fi4FWZt8 OP45WH63aZKdf8X5 vVN1V1TxXARlixyqtaxn rRZ5LRHwCMMtbW31Cn5k eRgvTc4jQUXqHEK6ZCCw sIGsX1GpzT5hFuXe AJIzBVWkH0CuiIEqUUhq B806ZDdjBnU9HXWwbySf Z0ZpNERtvHjtHuN6i3E0 Ea7KEPWiUA18CJZ6 aSJ4OP93ZD90L1VxXyzd dGFibGU+PHRhYmxlIHdp ZHRoPScxMDAlJyBzdHls SZ8hJu6mKKRvKIVr fHifbKGmIqFjw1zqBEFy UDufDF3isVjpY5BarSG4 MGLfp0m7Rm19Q80hL7Cc dXA+FUZxjIX3cGL0 cC2hRzMvJyM7EQtlG970 HmThaHQnOoirz6tcf3pd yFd1AdY0ELAztnWiwMto EIP0o1NgOb74E66m IHdpZHRoPSIxNSUiIHZh wJcids3muL1yDs5+PGNv qMZ1gFD7jP1gPkSsSlL1 AGnjY998FrHpyIZn Amgmo2ytu2gglWb8YbWl YIQzmzKxaBiyLZN3l0Js Lc89B6AoiAstr0WzLcm2 my27gXDam0O4gFY6 A2OqHXJljaqpqWBjgSxl PM9aCSVwxbspOIOidV1i KFKmA6j5DwNyZnU8DZlh P4HejjT8KATpxEMu COdiGFC6X49xg0Q3WJXt ZRRnVSB1vCP7jZ3hzZdp bjogbGVmdDsgdmVydGlj SWwmKHgtD106QSSi qYqnPCZjpA0aMWTxmWRn yHyrYN2hLEMmthxmHprN NR8QJjjdYoMZHOwxOOdo dGQ+FQCpMGV6jYej TAomSZGfeT8cXPRtQ9y8 BbHgNrC6NNaaA6ZsCZId hjtzBv03pS1wIvUmUsC8 VCpuC6FqkwP6OURn aRBwYUixNIP9L95qx4E7 RXPgAXVrIJN2eDG4dH0c bGlnbjogbGVmdDsgdmVy sJstWPphJJcfX894 JXAouXrxQpXeAeU1WmD7 SoJ0U7MsHdh0EWVhrCqg WC4wrPPuQYohKm5syCaq rKhxGO7jYKZfdrcx QUQizC6lAZWarORqpRba BK1kATNqucphj499YeFs DIZ0JWWagRKcS2QcbA0m HfQxJLNaMYJgH7Jp mRRiKMkxF259SAkmIvC6 ZHJmacEzU9QuPXTguVxe KuE9c2V3Rd02FjPRPGPk czwvdGQ+PHRkIHN0 lEdtXUivZDOyoF0kABPj C3r9HdYcSjO8ZSxqI2Xw GUMsjinyLn83cU3lRzEl HkB9JJcvG4YkbbG6 CFKoeFTmPFnfNZJ7Z04s n5K8UTHeVSRzBXA2pRP1 sZ5ynDkmtrnshZHnhFhe dmVydGljYWwtYWxp L100HBBbfEogVs3wvAB8 K0NfYqy3GGPceSkrKZ0z fPChEYniIn3esFtunGoj DH1tIZAujemsJGAy kI4fREFfoWRycJaqLT8q RURvdqkwg718EaNpCBJ8 LQIuvFHkZ5JyxP1kMdLx XNLhCTFmX5BlfOZq QJykA944QXcbAcS7EAMj bpOmV4BtGJFebVaxTvL6 a3S3Xq1BwFEhD5LcU0k5 V4VtQxxaqNA+PC90 LFYnPN78pKKfzEBmk4wq bVv2IbChFTWsCWV4kUqe XRdgk9VkSAWtG62nyJPt y3K4NUWgpZjcyKRk JoZcsIG6aW5uOXrfpopg c1vgjeuoVujkc4paog02 nO97M54eWJtoHYCaGXHs JIRoJRMqgXefhx6v mM8eXu2+JHPfaLL3yIR2 aC9dZrNnXmR1PNmaH490 YmVmrRUxSksmg4cch8rf lQb5CySqKCOmsxBr eBqwGJE9d7HaJd54Y12g IHdpZHRoPSIyMCUiIHZh ySodrm7iaY9uGm7+PC9j n8zfmx10wQ22lZU+ EYVsXTT6tCqpJCngWLEz zZ1dYVeyTaA4FRWpEvNu aM05vEOmLEnsHj6akGjr dTliMP3iAHMihemy t400QzJvy5aiZKNcnGPd ULzfQRM8B61ue8X1MPGp QIFuOLT9tFS0iZ9soVah bjogbGVmdDsgdmVy gSmoMFnwLNiiD011PXYv rXduNzEldMNdN5pjljYM KM4oNivsjYN+PHRkIHN0 qFguTKhmFTJyuQ9s LMKrL1i9UtIlSpJ2MFjj A0DwobA7GDSoaPRmIUDp sDPEiL1pmdxqu6czzhrz PuNzKNDiHYg0PQm2 WEFwlIecOrWjHHF1ChH9 UHV3uRUcqD5gyGzkbchk oF8tNjp+RklOOjwvdGQ+ ZGFyKPX0sUlnVBuk PIRilY3tOFEuE2o6BhVr RkU7SBgtS0PmweD9ESTg mCZuUBXktXZKvH4azmlq a1nucywtRzJkZUSf SYf1TRr8WESgxJkrBiPr BPO5BxA4BKY3tKBxsP7n hKsljbyvnD6rEad+TVJO OjwvdGQ+PHRkIHN0 kHmrRKbeVWUknJ2cEWTw E2z7NwZtEbG5ZHgiF9Fp gxW4VAHfvDImWZWfbOJK vY0lyllae4vldhbv WhYyCOEsGDj9AKd7HTGh lCiqHmZkKYY0QgT1LEJ6 pLVyhX3cmOipqzechO0w Oyc+VIO0PFY2NG40 GV12Z5HmQgiifEAlgPO+ PHRhYmxlIHdpZHRoPScx GKYfNfZkjHqjYO8mSa6k ZGVyLWNvbGxhcHNl OiBj (more content not included)... Normal [facility] Auto Diffon 08-24-2020 Basophils/100 WBC (Bld) 1.0 % Normal 0.0-2.0 [facility] Comment on above: Order Comment: Order Added by Discern Expert. Performed By: #### 1 8012352, 2919287, 6442533, 41129290, 3078746, 5928532, 64976212, 89540260 ####[facility] [address] [place] [address] Basophils/Leukocytes Auto (Bld) [Pure # fraction] 0.1 E9/L Normal 0.0-0.2 [facility] Comment on above: Order Comment: Order Added by Discern Expert. Performed By: #### 1 9295195, 1546909, 2911204, 47656781, 3049103, 1057850, 24073272, 01734730 ####[facility] [address] [place] [address] Eosinophils/100 WBC (Bld) 2.5 % Normal 0.0-8.0 [facility] Comment on above: Order Comment: Order Added by Discern Expert. Performed By: #### 1 1579798, 4313086, 6418522, 84971326, 9700608, 3075136, 77228480, 76591252 ####[facility] [address] [place] [address] Eosinophils/Leukocytes Auto (Bld) [Pure # fraction] 0.3 E9/L Normal 0.0-0.5 [facility] Comment on above: Order Comment: Order Added by Discern Expert. Performed By: #### 1 8028252, 8316590, 5708342, 68979809, 6032339, 0056524, 16842414, 81610113 ####[address] [place] [address] Lymphocytes/100 WBC (Bld) 21.0 % Normal 14.0-50.0 [facility] Comment on above: Order Comment: Order Added by Discern Expert. Performed By: #### 1 3446975, 5023057, 6225045, 99472903, 2358245, 0641001, 12035420, 93040865 ####[address] [address] Lymphocytes/Leukocytes Auto (Bld) [Pure # fraction] 2.1 E9/L Normal 1.0-4.0 [facility] Comment on above: Order Comment: Order Added by Discern Expert. Performed By: #### 1 5702627, 4763234, 5759686, 06045835, 0167325, 0941184, 15733095, 94104460 ####[address] [place] [address] Monocytes/100 WBC (Bld) 6.2 % Normal 4.0-14.0 [facility] Comment on above: Order Comment: Order Added by Discern Expert. Performed By: #### 1 3381558, 0496796, 9773378, 55839396, 0128407, 2903172, 59692744, 67243005 ####[address] [place] [address] Monocytes/Leukocytes Auto (Bld) [Pure # fraction] 0.6 E9/L Normal 0.2-1.0 [facility] Comment on above: Order Comment: Order Added by Discern Expert. Performed By: #### 1 7543431, 0494482, 7562980, 56976044, 5877846, 3530196, 18227770, 08835535 ####[facility] [address] [place] [address] Neutrophils/100 WBC (Bld) 69.3 % Normal 36.0-75.0 [facility] Comment on above: Order Comment: Order Added by Discern Expert. Performed By: #### 1 3738979, 2310435, 5560551, 66885868, 1772502, 2541683, 21673352, 49746461 ####[facility] [address] [place] [address] Neutrophils/Leukocytes Auto (Bld) [Pure # fraction] 6.9 E9/L Normal 2.0-7.5 [facility] Comment on above: Order Comment: Order Added by Discern Expert. Performed By: #### 1 8042445, 2095668, 3040848, 53378158, 1022063, 2155886, 14268555, 22587203 ####[facility] [address] [place] [address] BMPon 08-24-2020 Creatinine [Mass/Vol] 1.1 mg/dL Normal 0.5-1.3 [facility] Comment on above: Performed By: #### 1 1188005, 5522201, 1681736, 58631890, 9846953, 3165814, 83525337, 44351790 ####[facility] [address] [place] [address] Urea nitrogen [Mass/Vol] 19 mg/dL Normal 5-21 [facility] Comment on above: Performed By: #### 1 4607743, 7131990, 3319513, 05243361, 3723532, 2893613, 29834673, 13961869 ####[facility] [address] [place] [address] Urea nitrogen/Creatinine [Mass ratio] 17 No Units Normal 10-20 [facility] Comment on above: Performed By: #### 1 4867777, 3763160, 7882802, 75081204, 8413482, 7282062, 37875919, 74302010 ####[facility] [address] [place] [address] Anion gap [Moles/Vol] 14 mmol/L Normal 6-16 [facility] Comment on above: Performed By: #### 1 7757811, 4845729, 6016254, 95726911, 5570761, 9815389, 72116741, 97419219 ####[facility] [address] [place] [address] Calcium [Mass/Vol] 9.4 mg/dL Normal 8.9-11.1 [facility] Comment on above: Performed By: #### 1 7470037, 3355884, 5311632, 56632705, 1486647, 1353522, 71863810, 48661596 ####[facility] [address] [place] [address] Chloride [Moles/Vol] 94 mmol/L Low 101-111 [facility] Comment on above: Performed By: #### 1 7455823, 7174602, 5387662, 44918307, 5814052, 2440098, 78087268, 07250591 ####[facility] [address] [place] [address] CO2 [Moles/Vol] 29 mmol/L Normal 21-31 [facility] Comment on above: Performed By: #### 1 4597049, 8873644, 5853587, 76936722, 0620719, 5050043, 83961598, 24089094 ####[facility] [address] [place] [address] Glucose [Mass/Vol] 103 mg/dL Normal 55-199 [facility] Comment on above: Result Comment: If t his glucose result represents a fasting glucose, interpretation should refer to the following reference range: 55-99 mg/dL Performed By: #### 1 6152214, 7221746, 7231615, 50273365, 6679651, 6012593, 86821590, 90721021 ####[facility] [address] [place] [address] Potassium [Moles/Vol] 4.0 mmol/L Normal 3.5-5.3 [facility] Comment on above: Performed By: #### 1 7636008, 3874491, 6240248, 70480565, 4116577, 9000317, 33400837, 38994454 ####[address] [place] [address] Sodium [Moles/Vol] 133 mmol/L Low 135-145 [facility] Comment on above: Performed By: #### 1 2162047, 3248128, 0099730, 05729191, 5312189, 8929737, 50665147, 71116198 ####[address] [address] BNPon 08-24-2020 Natriuretic peptide B (Bld) [Mass/Vol] 17 pg/mL Normal 5-80 [facility] Comment on above: Performed By: #### 1 4818831, 8087018, 2234408, 24716777, 8779202, 4004848, 81919069, 43813232 ####[address] [address] CBC w/ Auto Diffon Erythrocyte distribution width (RBC) [Ratio] 12.9 % Normal 10.9-14.2 [facility] Comment on above: Performed By: #### 1 5341526, 1832672, 0347032, 47356370, 4657946, 9257514, 93006315, 10434029 ####[address] [place] [address] Hematocrit (Bld) [Volume fraction] 44.4 % Normal 37.7-49.0 [facility] Comment on above: Performed By: #### 1 1952164, 0253754, 0861738, 86439251, 4052762, 3883469, 08760361, 74910083 ####[address] [place] [address] Hemoglobin (Bld) [Mass/Vol] 15.3 g/dL Normal 13.5-17.5 [facility] Comment on above: Performed By: #### 1 7437893, 7474358, 7476345, 78095509, 8575735, 3237383, 29035854, 28546149 ####[address] [address] MCH (RBC) [Entitic mass] 31.5 pg Normal 27.0-34.0 [facility] Comment on above: Performed By: #### 1 2962528, 0827555, 4721055, 11516449, 6743222, 9767237, 26878086, 12400453 ####[address] [address] MCHC (RBC) [Mass/Vol] 34.4 g/dL Normal 31.4-36.0 [facility] Comment on above: Performed By: #### 1 7199116, 7068498, 8658021, 52892145, 0228919, 3326766, 84561768, 73855505 ####[address] [address] MCV (RBC) [Entitic vol] 91.6 fL Normal 80.0-100.0 [facility] Comment on above: Performed By: #### 1 5737102, 3523075, 2064989, 30848576, 8294414, 4524818, 26683666, 52474366 ####[address] [address] Platelet mean volume (Bld) [Entitic vol] 8.4 fL Normal 6.4-10.8 [facility] Comment on above: Performed By: #### 1 7507893, 2063112, 9921522, 18566549, 3095776, 1952648, 20279821, 66357579 ####[address] [address] Platelets (Bld) [#/Vol] 289.0 E9/L Normal 150.0-500.0 [facility] Comment on above: Performed By: #### 1 4744206, 9622879, 1198171, 54329268, 5321195, 1501122, 49515054, 14384697 ####[facility] [address] [place] [address] RBC (Bld) [#/Vol] 4.8 E12/L Normal 4.3-5.9 [facility] Comment on above: Performed By: #### 1 6234387, 6584446, 1379898, 16714056, 0768184, 8511938, 65064764, 16506790 ####[facility] [address] [place] [address] WBC corrected for nucl RBC Auto (Bld) [#/Vol] 9.9 E9/L Normal 4.0-11.0 [facility] Comment on above: Performed By: #### 1 0220089, 8746157, 7176948, 09989711, 6692215, 5797435, 94782900, 96303942 ####[facility] [address] [place] [address] CTA Cheston 08-24-2020 CTA Chest Exam Date/Time: [...] Treatmenton 08-07 Consent for Treatment [id number] 10 [id number] #1.00CD:127 Normal [facility] infections Liver cirrhosis Performed By: #### 1 6242244, 7450800, 7990516, 69949980, 8148232, 5211253, 40287097, 15989224 ####[facility] [address] [place] [address] Discharge Instructionson Discharge Instructions [id number] [id number] #1.00CD:127 Normal [facility] ED Clinical Summaryon 2020 ED Clinical Summary [address] [address] ED Clinical Summary Person Information Name: LILIANA MICHAELS/New_Reza Age: 55 Years : 1965 Sex: Male Language: Albanian PCP: SIMONE JEAN BAPTISTE DC Marital Status: Single Phone: [phone] Visit Id: Visit Reason: Rib/trunk pain-swelling; SIDE [...] 03:27:58 08/24/2020 03:27:58 08/24/2020 03:27:58 ADDRESS: [address] [facility] [id number] PHYS DOC NOTES: MEDICAL INFORMATION: Prescriptions Given: New Medications [id number], [address], [place] [id number], [phone] azithromycin (Zithromax TRI-AMIRA 500 mg oral tablet) [...] Address: When: SIMONE JEAN BAPTISTE [address] [place] [address] Business (1) In 1 day 08/25/2020 Comments: [...] date 08/24/20 2:30:00 EDT [place] Ant[place] [place] Orders: albuterol-ipratropiu m, 3 mL, Soln-Inh, Inhalation, Once, Stop date 08/24/20 0:16:00 EDT, STAT, Start date 08/24/20 0:16:00 EDT azithromycin, 500 mg = 1 tab(s), Oral, Daily, # 3 tab(s), Refills(s) 0, Pharmacy: [id number], 163, cm, 08/24/20 0:04:00 EDT, Height/Length Dosing, 101, kg, 08/24/20 0:04:00 EDT, Weight Dosing famotidine, 20 mg = 1 tab(s), Tab, Oral, Once, Stop date 08/24/20 0:17:00 EDT, STAT, Start date 08/24/20 0:17:00 EDT lidocaine topical, 1 patch(es), Topical, Daily, 7 patch(es), Refill(s) 0, apply 12 hours on and 12 hours off daily, [facility]/pharmacy #[id number], 163, cm, 08/24/20 0:04:00 EDT, Height/Length [...] Document Reviewed: 11/28/2008 ExitCare? Patient Information ?2015 [employer] Plates. This information is not intended to replace advice given to you by your health care provider. Make sure you discuss any questions you have with your health care provider. Normal [facility] ED Patient Summaryon 021 ED Patient Summary [address] [address] Patient Discharge Instructions Person Information Name: LILIANA MICHAELS Age: 55 Years Arrival Date: 08/23/2020 23:48:11 Discharge Diagnosis: 1:Rib pain on left side Primary Care Physician: SIMONE JEAN BAPTISTE DC Provider Information Primary Provider: Pia LANE, David Advanced Door Frame Builder:None The exam and treatment you received in the Emergency Department were for an urgent problem and are not intended as complete care. It is important that you follow up with a doctor, nurse practitioner, or physician?s pharmacist assistant for ongoing care. If your symptoms [...] With: Address: When: SIMONE JEAN BAPTISTE [address] [place], [place] [address] [facility] (1) In 1 day 08/25/2020 Comments: Patient [...] opioids can be used to help relieve flvhoaqn-uy-vnxpfo pain and are often prescribed following a [...] - 109.0 sec. Performed By: #### 1 0769001, 7832896, 7110942, 57378759, 0022293, 0435099, 87426094, 86528015 ####[facility] [address] [place] [address] INR Coag (PPP) [Relative time] 1.0 {INR} Invalid Interpretation Code [facility] Comment on above: Result Comment: INR results are specifically intended to assess patients stabilized on long-term Anticoagulation therapy suggested INR?s ?Less Intensive Anticoagulation? 2.0 ? 3.0 Conventional Range 3.0 ? 4.5 Performed By: #### 1 5927472, 5303446, 0509254, 09529736, 9493497, 3796202, 27522530, 58598980 ####[facility] [address] [place] [address] PT Coag (PPP) [Time] 11.6 second(s) Normal 10.2-12.9 [facility] Comment on above: Performed By: #### 1 2957119, 7892424, 3277236, 66404691, 7731316, 7423388, 29957209, 13048191 ####[facility] [address] [place] [address] RAD - Preliminary Cat Scan R nancy 08-24-2020 RAD - Preliminary Cat Scan Report [id number] #1.00CD:127 Normal [facility] Rapid COVID [place]igen [place] [place]on 08-24-2020 Rapid COV Int NEG Ctl Pass Normal [facility] Comment on above: Performed By: #### 2 [id number] ####[facility] [address] [place] [address] Rapid COV Int POS Ctl Pass Normal [facility] Comment on above: Performed By: #### 2 [id number] ####[address] [place] [address] SARS-CoV-2 (COVID-19) RNA KATT+probe Ql (Unsp spec) Not detected Normal Not Detected [facility] Comment on above: Result Comment: The [employer] System for Rapid Detection of SARS-CoV-2 is [...] or revoked sooner. Performed By: #### 2 [id number] ####[address] [facility] [place] [facility] [place] [address] Employed in Healthcare NO Normal [facility] Comment on above: Performed By: #### 2 994238889 ####[address] [facility] [place] [address] First Test Unknown [facility] Comment on above: Performed By: #### 2 [id number] ####[address] [place] [address] Hospitalized? NO Normal [facility] Comment on above: Performed By: #### 2 360809172 ####[address] [facility] [place] [address] ICU NO [facility] Comment on above: Performed By: #### 2 684233612 ####[address] [facility] [place] [address] ? NO Normal [facility] Comment on above: Performed By: #### 2 441894031 ####[address] [facility] [place] [address] Resides in a Congregate Care Setting NO Normal [facility] Comment on above: Performed By: #### 2 394591840 ####[address] [facility] [place] [address] Symptomatic as defined by [facility] YES Normal [facility] Comment on above: Performed By: #### 2 093467035 ####[address] [facility] [place] [address] Troponin 0 Hr.on 08-24-2020 Troponin I.cardiac [Mass/Vol] [...] High Sensitivity Troponin I Instructions For Use, [employer], December 2017) Performed By: #### 1 3663113, 2004873, 1828363, 83674346, 7486889, 2265859, 59986137, 04958237 ####[facility] [address] [place] [address] Troponin 3 Hr.on 08-24-2020 Troponin I.cardiac [Mass/Vol] [...] High Sensitivity Troponin I Instructions For Use, [employer], December 2017) Performed By: #### 1 6813864 ####[facility] [address] [place] [address] XR Chest Single Viewon 08-24 XR Chest [...] V. Transcribed by: VIVIAN Technologist: MMM Normal [facility] eGFRon 08-24-2020 GFR/1.73 sq M.predicted among blacks MDRD (S/P/Bld) [Vol rate/Area] mL/min/{1.73_m2} Normal >=59 [facility] Comment on above: Order Comment: Order added by Discern Expert. Result Comment: eGFR is race adjusted. AA=. Performed By: #### 1 3664942, 2256198, 8762154, 02805235, 5441708, 0074588, 62770417, 82954306 ####[facility] [address] [place] [address] GFR/1.73 sq M.predicted among non-blacks MDRD (S/P/Bld) [Vol rate/Area] mL/min/{1.73_m2} Normal >=59 [facility] Comment on above: Order Comment: Order added by Discern Expert. Result Comment: Waste Minimization Technician jeniffer kidney disease could be indicated at eGFR's of less than 60 mL/min/1.73m2. Kidney failure is indicated at less than 15 mL/min/1.73m2. Performed By: #### 1 2987889, 0210999, 2758022, 50297469, 1095894, 9593663, 92364048, 86868947 ####[facility] [address] [place] [address] HIP RIGHT 1 OR 2 VWS WITH PE LVISon 07-24-2020 HIP RIGHT 1 OR 2 VWS WITH PELVIS [facility] Department of Radiology [address] [place] [id number] Patient Name: LILIANA MICHAELS : 1965 [...] Electronically signed: Ana M Mariee. Transcribed by: [id number], User Resident: Electronically Signed by: ANA M MARIEE @ 07/24/2020 10:01 AM Normal [facility] Comment on above: Order Comment: Views (X-RAY, HIP): Radiologic Protocol HIP RIGHT 1 OR 2 VWS WITH PE LVISon 04-24-2020 HIP RIGHT 1 OR 2 VWS WITH PELVIS [facility] Department of Radiology [address] [place] [phone] Patient Name: LILIANA MICHAELS : 1965 [...] abnormality. Electronically signed: Ed España. Transcribed by: [email or web address], User Resident: Electronically Signed by: ED ESPAÑA @ 04/25/2020 08:22 AM Normal [facility] Comment on above: Order Comment: Views (X-RAY, HIP): Radiologic Protocol Operative Reporton 0 Operative Report MR#: [id number] [facility] Pt. Name: Liliana Michaels Room #: 6AB [id number] Discharge 03/15/2020 Date: Birthdate: 1965 OPERATIVE REPORT [...] a (more content not included)... Normal [facility] BASIC METABOLIC PANELon 11-0 -2020 Calcium [Mass/Vol] 8.8 mg/dL Normal 8.6-10.[address] [facility] Comment on above: Order Comment: Views (X-RAY, HIP): Radiologic Protocol Performed By: #### 0 0071 ####[facility] [facility].[address] Chloride [Moles/Vol] 98 mmol/L Normal 98-[address] [facility] Comment on above: Order Comment: Views (X-RAY, HIP): Radiologic Protocol Performed By: #### 0 0071 ####[facility] [facility] [place] [address], [facility] CO2 [Moles/Vol] 30 mmol/L Normal 21-[address] [facility] Comment on above: Order Comment: Views (X-RAY, HIP): Radiologic Protocol Performed By: #### 0 0071 ####[facility] [facility] [place] [address], [facility] Creatinine [Mass/Vol] 0.96 mg/dL Normal 0.70-1.[address] [facility] Comment on above: Order Comment: Views (X-RAY, HIP): Radiologic Protocol Performed By: #### 0 0071 ####[facility] [facility] [place] [address], [facility] GFR/1.73 sq M.predicted among blacks MDRD (S/P/Bld) [Vol rate/Area] mL/min/{1.73_m2} Normal >[address] [facility] Comment on above: Order Comment: Views (X-RAY, HIP): Radiologic Protocol Performed By: #### 0 0071 ####[facility] [facility] [place] [address], [place] GFR/1.73 sq M.predicted among non-blacks MDRD (S/P/Bld) [Vol rate/Area] mL/min/{1.73_m2} Normal >[address] [facility] Comment on above: Order Comment: Views (X-RAY, HIP): Radiologic Protocol Performed By: #### 0 0071 ####[facility] [facility] [place] [address], [place] Glucose [Mass/Vol] 151 mg/dL High 70-[address] [facility] Comment on above: Order Comment: Views (X-RAY, HIP): Radiologic Protocol Performed By: #### 0 0071 ####[facility] [place] [address], [place] Potassium [Moles/Vol] 4.4 mmol/L Normal 3.5-5.[address] [facility] Comment on above: Order Comment: Views (X-RAY, HIP): Radiologic Protocol Performed By: #### 0 0071 ####[facility] Sodium [Moles/Vol] 133 mmol/L Low 136-[address] [facility] Comment on above: Order Comment: Views (X-RAY, HIP): Radiologic Protocol Performed By: #### 0 0071 ####[facility] Urea nitrogen [Mass/Vol] 20 mg/dL Normal 7-[address] [facility] Comment on above: Order Comment: Views (X-RAY, HIP): Radiologic Protocol Performed By: #### 0 0071 ####[facility] CBC COMPLETE BLOOD COUNTon 05-15-2019 Erythrocyte distribution width (RBC) [Ratio] 12.2 % Normal 11.5-15.[address] [facility] Comment on above: Order Comment: No: D o not add to previous draw Performed By: #### [id number] #### [facility] [address] Hematocrit (Bld) [Volume fraction] 42.2 % Normal 39.0-50.[address] [facility] Comment on above: Order Comment: No: D o not add to previous draw Performed By: #### [id number] #### [facility] [address] [facility] [place] [address], [facility] Hemoglobin (Bld) [Mass/Vol] 13.9 g/dL Normal 13.0-17.[address] [facility] Comment on above: Order Comment: No: D o not add to previous draw Performed By: #### [id number] #### [facility] [address] [place] [address], [facility] MCH (RBC) [Entitic mass] 31.4 pg Normal 27.0-33.[address] [facility] Comment on above: Order Comment: No: D o not add to previous draw Performed By: #### [id number] #### [facility] [address] [place] [address], [facility] MCHC (RBC) [Mass/Vol] 32.9 g/dL Normal 32.0-35.[address] [facility] Comment on above: Order Comment: No: D o not add to previous draw Performed By: #### 5 [id number] #### [facility] [address] [place] [address], [facility] MCV (RBC) [Entitic vol] 95.5 fL Normal 82.0-98.[address] [facility] Comment on above: Order Comment: No: D o not add to previous draw Performed By: #### 5 [id number] #### [facility] [address] [place] [address], [facility] Nucleated RBC/100 WBC (Bld) [Ratio] 0 % Normal 0-[address] [facility] Comment on above: Order Comment: No: D o not add to previous draw Performed By: #### 5 [id number] #### [facility] [address] [facility] [place] [address], [facility] PLAT CNT 254 10*3/uL Normal 150-[address] [facility] Comment on above: Order Comment: No: D o not add to previous draw Performed By: #### 5 0608 #### [facility] [address] [place] [address], [facility] RBC (Bld) [#/Vol] 4.42 10*6/uL Normal 4.20-5.[address] [facility] Comment on above: Order Comment: No: D o not add to previous draw Performed By: #### 5 0608 #### [facility] [address] [place] [address], [facility] WBC (Bld) [#/Vol] 14.44 10*3/uL High 4.00-10.[address] [facility] Comment on above: Order Comment: No: D o not add to previous draw Performed By: #### 5 0608 #### [facility] [address] [facility]. [address] POC GLUCOSE LABon 03-15-2020 Glucose [Mass/Vol] 193 mg/dL High 70-[address] [facility] Comment on above: Performed By: #### 8 [id number] #### [facility] [address] [facility] [place] [address], [facility] CBC W/DIFFon 03-14-2020 ABS IMM GRANS 0.2 10*3/uL Normal 0.0-0.[address] [facility] Comment on above: Performed By: #### 5 0103 ####[facility] [place] [address], [facility] ABS NEUTROPHILS 8.0 10*3/uL High 1.6-7.[address] [facility] Comment on above: Performed By: #### 5 0103 ####[facility] [place] [address], [facility] Basophils (Bld) [#/Vol] 0.1 10*3/uL Normal 0.0-0.[address] [facility] Comment on above: Performed By: #### 5 0103 ####[facility] [facility] [place] [address], [facility] Basophils/100 WBC (Bld) 1.1 % High 0.0-1.[address] [facility] Comment on above: Performed By: #### 5 0103 ####[facility] [facility] [place] [address], [facility] Eosinophils (Bld) [#/Vol] 0.3 10*3/uL Normal 0.0-0.[address] [facility] Comment on above: Performed By: #### 5 0103 ####[facility] [facility] [place] [address], [facility] Eosinophils/100 WBC (Bld) 2.7 % Normal 0.0-6.[address] [facility] Comment on above: Performed By: #### 5 0103 ####[facility] [facility].[address] Erythrocyte distribution width (RBC) [Ratio] 12.3 % Normal 11.5-15.[address] [facility] Comment on above: Performed By: #### 5 0103 ####[facility]3000 [facility].[address] Hematocrit (Bld) [Volume fraction] 50.5 % High 39.0-50.[address] [facility] Comment on above: Performed By: #### 5 3 ####[facility] [facility].[address] Hemoglobin (Bld) [Mass/Vol] 17.3 g/dL High 13.0-17.[address] [facility] Comment on above: Performed By: #### 5 3 ####[facility] IMMATURE GRANS 1.4 % High 0.0-1.[address] [facility] Comment on above: Performed By: #### 5 3 ####[place] [id number] [facility].[address] Lymphocytes (Bld) [#/Vol] 1.8 10*3/uL Normal 1.2-4.[address] [facility] Comment on above: Performed By: #### 5 3 ####[facility] [facility].[address] Lymphocytes/100 WBC (Bld) 15.6 % Low 20.0-45.[address] [facility] Comment on above: Performed By: #### 5 3 ####[facility] MCH (RBC) [Entitic mass] 31.7 pg Normal 27.0-33.[address] [facility] Comment on above: Performed By: #### 5 0103 ####[facility] MCHC (RBC) [Mass/Vol] 34.3 g/dL Normal 32.0-35.[address] [facility] Comment on above: Performed By: #### 5 0103 ####[facility] MCV (RBC) [Entitic vol] 92.7 fL Normal 82.0-98.[address] [facility] Comment on above: Performed By: #### 5 0103 ####[facility] Monocytes (Bld) [#/Vol] 0.9 10*3/uL Normal 0.1-1.[address] [facility] Comment on above: Performed By: #### 5 0103 ####[facility] MONOS 8.2 % Normal 5.0-12.[address] [facility] Comment on above: Performed By: #### 5 3 ####[facility] Neutrophils/100 WBC (Bld) 71.0 % Normal 40.0-72.[address] [facility] Comment on above: Performed By: #### 5 3 ####[facility] Nucleated RBC/100 WBC (Bld) [Ratio] 0 % Normal 0-[address] [facility] Comment on above: Performed By: #### 5 3 ####[facility] [place] [address], [facility] PLAT CNT 301 10*3/uL Normal 150-[address] [facility] Comment on above: Performed By: #### 5 0103 ####[facility] [facility] [place] [address], [facility] RBC (Bld) [#/Vol] 5.45 10*6/uL Normal 4.20-5.[address] [facility] Comment on above: Performed By: #### 5 0103 ####[facility] [facility] [place] [address], [facility] WBC (Bld) [#/Vol] 11.22 10*3/uL High 4.00-10.[address] [facility] Comment on above: Performed By: #### 5 0103 ####[facility] [facility] [place] [address], [facility] HIP RIGHT 1 OR 2 VWS WITH PE LVISon 03-14-2020 HIP RIGHT 1 OR 2 VWS WITH PELVIS [facility] Department of Radiology [address] [place] [id number] Patient Name: LILIANA MICHAELS : 1965 [...] purposes Electronically signed: Aria Steinberg. Transcribed by: [email or web address], User Resident: Electronically Signed by: ARIA STEINBERG @ 03/14/2020 03:44 PM Normal [facility] Comment on above: Order Comment: RT TH A POC GLUCOSE LABon 03-14-2020 Glucose [Mass/Vol] 222 mg/dL High 70-[address] [facility] Comment on above: Performed By: #### 8 [id number] #### [facility] [address] [facility] [place] [address], [facility] Glucose [Mass/Vol] 217 mg/dL High 70-[address] [facility] Comment on above: Performed By: #### 8 [id number] ####[facility] [place] [address], [place] Glucose [Mass/Vol] 141 mg/dL High 70-[address] [facility] Comment on above: Performed By: #### 8 [id number] #### [facility] [address] [facility] [place] [address], [facility] PORTABLE HIP RIGHT 1 OR 2 VW S WITH PELVISon 03-14-2020 PORTABLE HIP RIGHT 1 OR 2 VWS WITH PELVIS [facility] Department of Radiology [address] [place] [id number] Patient Name: LILIANA MICHAELS : 1965 Sex: [...] air Electronically signed: Aria Steinberg. Transcribed by: [email or web address], User Resident: Electronically Signed by: ARIA STEINBERG @ 03/14/2020 03:46 PM Normal [facility] Comment on above: Order Comment: Hardw are Evaluation, AP/Lateral TYPE AND SCREENon 03-14-2020 ABO INTERPRETATION O Normal [facility] Comment on above: Performed By: #### 6 2586 ####[facility] [place] [address], [facility] RH INTERPRETATION Positive Normal [facility] Comment on above: Performed By: #### 6 2586 ####[facility] Vital Signs Date Time Vital Sign Value Performing Clinician Facility 08-10-2023 13:31-0400 Body height 162.6 cm Amador Son MD Work Phone: [facility] 08-10-2023 13:31-0400 Body mass index (BMI) [Ratio] 34.67 kg/m2 Amador Son MD Work Phone: [facility] 08-10-2023 13:31-0400 Body weight 91.63 kg Amador Son MD Work Phone: [facility] 08-10-2023 13:31-0400 Diastolic blood pressure 70 mm[Hg] Amador Son MD Work Phone: [facility] 08-10-2023 13:31-0400 Heart rate 69 /min Amador Son MD Work Phone: [facility] 08-10-2023 13:31-0400 Systolic blood pressure 116 mm[Hg] Amador Son MD Work Phone: [facility] 08-05-2023 17:30-0400 Diastolic blood pressure 67 mm[Hg] Amador Son MD Work Phone: [facility] 08-05-2023 17:30-0400 Heart rate 60 /min Amador Son MD Work Phone: [facility] 08-05-2023 17:30-0400 Respiratory rate 16 /min Amador Son MD Work Phone: [facility] 08-05-2023 17:30-0400 SaO2% (BldA) [Mass fraction] 96 % Amador Son MD Work Phone: [facility] 08-05-2023 17:30-0400 Systolic blood pressure 112 mm[Hg] Amador Son MD Work Phone: [facility] 08-05-2023 12:13-0400 Body height 162.6 cm Amador Son MD Work Phone: [facility] 08-05-2023 12:13-0400 Body mass index (BMI) [Ratio] 34.17 kg/m2 Amador Son MD Work Phone: [facility] 08-05-2023 12:13-0400 Body temperature 97.5 [degF] Amador Son MD Work Phone: [facility] 08-05-2023 12:13-0400 Body weight 90.3 kg Amador Son MD Work Phone: [facility] 07-22-2023 14:38-0400 Body height 162.6 cm Amador Son MD Work Phone: [facility] 07-22-2023 14:38-0400 Body mass index (BMI) [Ratio] 34.33 kg/m2 Amador Son MD Work Phone: [facility] 07-22-2023 14:38-0400 Body weight 90.72 kg Amador Son MD Work Phone: [facility] 07-22-2023 14:38-0400 Diastolic blood pressure 90 mm[Hg] Amador Son MD Work Phone: [facility] 07-22-2023 14:38-0400 Heart rate 41 /min Amador Son MD Work Phone: [facility] 07-22-2023 14:38-0400 Systolic blood pressure 138 mm[Hg] Amador Son MD Work Phone: [facility] 07-14-2022 10:57-0500 Body height 162.56 cm Ishmael Simon Work Phone: [facility] [employer] 600 DO Work Phone: 07-14-2022 10:57-0500 Body mass index (BMI) [Ratio] 32.96 kg/m2 Ishmael Simon Work Phone: [facility] [employer] 600 DO Work Phone: 07-14-2022 10:57-0500 Body surface area Derived from formula 1.92 m2 Ishmael A Naderer Work Phone: [facility] 600 DO Work Phone: 07-14-2022 10:57-0500 Body weight 87.09 kg Ishmael A Naderer Work Phone: [facility] 600 DO Work Phone: 07-14-2022 10:57-0500 Diastolic blood pressure 64 mm[Hg] Ishmael A Naderer Work Phone: [facility] 600 DO Work Phone: 07-14-2022 10:57-0500 Heart rate 34 /min Ishmael A Naderer Work Phone: [facility] 600 DO Work Phone: 07-14-2022 10:57-0500 Systolic blood pressure 118 mm[Hg] Ishmael A Naderer Work Phone: [facility] 600 DO Work Phone: 01-28-2022 09:37-0400 Body height 162.56 cm Ishmael A Naderer Work Phone: [facility] 600 DO Work Phone: 01-28-2022 09:37-0400 Body mass index (BMI) [Ratio] 30.9 kg/m2 Ishmael A Naderer Work Phone: [facility] 600 DO Work Phone: 01-28-2022 09:37-0400 Body surface area Derived from formula 1.87 m2 Ishmael A Naderer Work Phone: [facility] 600 DO Work Phone: 01-28-2022 09:37-0400 Body weight 81.65 kg Ishmael A Naderer Work Phone: [facility] 600 DO Work Phone: 01-28-2022 09:37-0400 Diastolic blood pressure 50 mm[Hg] Ishmael Coronaerer Work Phone: [facility] 600 DO Work Phone: 01-28-2022 09:37-0400 Heart rate 41 /min Ishmael Coronaerer Work Phone: [facility] 600 DO Work Phone: 01-28-2022 09:37-0400 Systolic blood pressure 112 mm[Hg] Ishmael Coronaerer Work Phone: [facility] 600 DO Work Phone: Encounters Encounter Date Encounter Type Care Provider Facility Start: 11-09-2023 End: [facility] Start: 10-10-2023 End: 10-10-2023 ambulatory ISHMAEL SIMON Not Available Start: 09-26-2023 End: 09-26-2023 ambulatory [facility] Start: 09-26-2023 End: 09-26-2023 Subsequent hospital visit by physician Varsha Device Remote [facility] Comment on above: Cardiac pacemaker in situ; Sinoatrial node dysfunction (Multi) Start: 08-12-2023 End: 08-12-2023 [facility] Start: 08-10-2023 End: 08-10-2023 Subsequent hospital visit by physician Varsha Ultrasound 3 [facility] Comment on above: Localized swelling o n left hand; S/P placement of cardiac pacemaker Start: 08-10-2023 End: 08-10-2023 ambulatory [facility] Ambulatory Start: 08-10-2023 End: 08-10-2023 Office outpatient visit 25 minutes Amador Son MD Work Phone: [facility] Comment on above: Chronotropic incompe tence (Primary Dx); Abnormal stress test; Sinus bradycardia; Sick sinus syndrome (CMS/HCC); Essential hypertension, benign; BMI 34.0-34.9,adult; Current smoker Start: 08-05-2023 End: 08-05-2023 Subsequent hospital visit by physician Amador Son MD Work Phone: [facility] Comment on above: Sinus bradycardia (P rimary Dx); Chronotropic incompetence; Sick sinus syndrome (CMS/HCC); Other fatigue; Abnormal stress test; Dyspnea; Pacemaker Start: 07-22-2023 End: 07-22-2023 ambulatory [facility]ulatory Start: 07-22-2023 End: 07-22-2023 Encounter for preprocedural cardiovascular examination [facility]ulatory Start: 07-22-2023 End: 07-22-2023 Office outpatient new 60 minutes Amador Son MD Work Phone: [facility] Comment on above: Chronotropic incompe tence (Primary Dx); Sinus bradycardia; Establishing care with new doctor, encounter for; BMI 34.0-34.9,adult; Sick sinus syndrome (CMS/HCC); Simple chronic bronchitis (CMS/HCC); Current smoker; Other fatigue; Preoperative cardiovascular examination Start: 07-22-2023 End: 07-22-2023 Patient encounter status Amador Son MD Work Phone: [facility] Work Phone: Start: 07-13-2023 End: 07-13-2023 ambulatory [facility] Ambulatory Start: 07-13-2023 End: 07-13-2023 ambulatory [facility] Ambulatory Start: 04-13-2023 End: 04-13-2023 ambulatory [...] sit 15 minutes Ishmael Simon Work Phone: [facility] 600 DO Work Phone: Start: 07-14-2022 [...] 02-16-2022 Chart Update Ishmael Simon Work Phone: [facility] 250 DO Work Phone: Start: 02-15-[address] Valentino Ty Facility:44 Start: 01-28-[address] Ishmael Simon Facility: Start: 01-28-2022 Office consultation new/estab patient 60 min Ishmael Simon Work Phone: [facility] 600 DO Work Phone: Start: 01-14-2022 End: 01-15-2022 ambulatory TERESO Rajput Facility:[facility] Start: 01-01-2022 End: 01-02-[address] ISHMAEL SIMON Facility:[facility] Start: 12-15-2021 End: 12-15-[address] RICKY IBARRA . Facility:[facility] Start: 12-14-2021 Encounter for preprocedural laboratory examination DR RICKY IBARRA . [facility] Start: 12-12-2021 End: 12-13-[address] [...] Start: 10-03-2020 End: 10-04-2020 ambulatory SIMONE RUIZ Facility:[facility] Start: 03-26-2020 End: 04-10-2020 ambulatory JEY ELISE Facility:[facility] Start: 03-14-2020 End: 03-15-2020 ambulatory JEY ELISE Facility:[facility] Procedures Date Procedure Procedure Detail Performing Clinician Start: 09-26-2023 CARDIAC DEVICE CHECK - REMOTE NAIMA WRIGHT Start: 09-26-2023 CARDIAC DEVICE CHECK - REMOTE Amador Son MD Work Phone: Start: 08-10-2023 VASC US UPPER EXTREM ITY VENOUS DUPLEX LEFT NAIMA WRIGHT Start: 08-10-2023 Dup-scan xtr veins unilateral/limited study Naima Wright MOBILITY ENGINEER-MASTER FIRE CONTROL TECHNICIAN Work Phone: Start: 08-05-2023 Radiologic exam ches t single view Ana M Kumari APRN-MASTER FIRE CONTROL TECHNICIAN Work Phone: Start: 08-05-2023 Ecg routine ecg w/le ast 12 lds trcg only w/o i&r Ana M Kumari APRN-MASTER FIRE CONTROL TECHNICIAN Work Phone: Start: 08-05-2023 Electrophysiology study Amador Son MD Work Phone: Start: 08-05-2023 Echo tthrc r-t 2d w/ wom-mode compl spec&colr d Ana M Dodge [place] MOBILITY ENGINEER-MASTER FIRE CONTROL TECHNICIAN Work Phone: Start: 08-05-2023 Ecg routine ecg w/le ast 12 lds trcg only w/o i&r Ana M Echo [place] MOBILITY ENGINEER-MASTER FIRE CONTROL TECHNICIAN Work Phone: Start: 08-05-2023 Basic metabolic pane l calcium total Ana M Dodge [place] MOBILITY ENGINEERWise ConnectMASTER FIRE CONTROL TECHNICIAN Work Phone: Start: 07-22-2023 CASE REQUEST EP LAB MINDI RHAF TRABOULSSI Start: 07-22-2023 AMB REFERRAL TO CARD [facility] ELECTROPHYSIOLOGY MOURHAF TRABOULSSI Start: 07-22-2023 ECG 12-LEAD MOURHAF TR ABOULSSI Start: 07-22-2023 Ecg routine ecg w/le ast 12 lds w/i&r Amador Son MD Work Phone: Start: 07-13-2023 HOLTER OR EVENT CARD IAC MONITOR MOURHAF TRABOULSSI Start: 07-13-2023 ECG 12-LEAD MOURHAF TR ABOULSSI Start: 05-07-[address] ISHMAEL CROUCH Comment on above: Performed By: #### V ITAD, PSASC #### [facility] [address] [place] [address] Dr. Britt Mendoza Start: 03-15-2020 ANESTH HIP ARTHROPLASTY SIMONE RUIZ Start: 03-15-2020 TOTAL HIP ARTHROPLASTY JEY ELISE Start: 03-14-2020 Antibody screen SIMONE BOLIVAR Comment on above: Performed By: #### 6 [id number] ####[facility] [place] [address], [facility] Colonoscopy Ishmael Rae Naderer Work [...] Author Start: 08-04-2024 Creatinine measurement Creatinine Level [facility] Start: 08-04-2024 Echocardiography Echocardiogram [facility] Start: 08-04-2024 Potassium measurement Potassium Level [facility] Start: 01-08-2024 Influenza vaccination Influenza Vaccine (Season Ended) [facility] Start: 11-09-2023 End: 08-04-2024 Cardiac Device Check - In Clinic Cardiac Device Check - In Clinic Implantable Cardiac Device Routine Pacemaker Expected: 11/09/2023 (Approximate), Expires: 08/04/2024 [facility] Service Area Work Phone: Comment on above: Expected: 11/09/2023 (Approximate), Expi res: 08/04/2024 Start: 11-09-2023 End: 08-04-2024 XR Chest 2 Views XR chest 2 views Imaging Routine Pacemaker Expected: 11/09/2023, Expires: 08/04/2024 [facility] Work Phone: Comment on above: Expected: 11/09/2023, Expires: Start: 11-09-2023 End: 11-09-2023 Patient encounter procedure [facility] Start: 11-03-2023 End: 11-03-2023 Patient encounter procedure 11/03/2023 8:50 AM EDT Office Visit [address] [place] [address] Valentino Ty MD [address] [place] [address] [facility] Start: 08-12-2023 End: 08-12-2023 Clinical Support 08/12/2023 8:30 AM EDT Clinical Support [facility] [address] [place] [phone] [facility] Start: 08-10-2023 Subsequent hospital visit by physician 08/10/2023 2:09 PM EDT Hospital Encounter [facility] [address] [place] [address] Localized swelling on left hand; S/P placement of cardiac pacemaker [facility] Comment on above: Localized swelling on left hand; S/P placement of cardiac pacemaker Start: 07-22-2023 End: 07-21-2025 US Heart Transthoracic Transthoracic Echo Complete Echocardiography Routine Sinus bradycardia Chronotropic incompetence Sick sinus syndrome (CMS/HCC) Other fatigue Preoperative cardiovascular examination Expected: 07/22/2023 (Approximate), Expires: 07/21/2025 [facility] Work Phone: Comment on above: Expected: 07/22/2023 (Approximate), Expi res: 07/21/2025 Start: 07-13-2023 FUV, Provider: Valentino Ty, Status: Pen, Time: 8:30 AM FUV, Provider: Valentino Ty, Status: Pen, Time: 8:30 AM [facility] 600 DO Work Phone: Start: 01-07-2023 COVID-19 Vaccine ( season) COVID-19 Vaccine ( season) [facility] Start: 01-07-2023 Influenza vaccination Influenza Vaccine (#1) [facility] Start: 07-14-2022 FUV, Provider: Valentino Ty, Status: Pen, Time: 10:40 AM FUV, Provider: Valentino Ty, Status: Pen, Time: 10:40 AM -[facility] 600 DO Work Phone: Start: 02-15-2022 STRESS JUICE, Provider: CARLITO KEANE NUCLEAR 01,[id number], Status: Pen, Time: 2:00 PM STRESS JUICE, Provider: CARLITO KEANE NUCLEAR 01,[id number], Status: Pen, Time: 2:00 PM [facility] 600 DO Work Phone: Start: 02-21-2014 Zoster Vaccines (1 of 2) Zoster Vaccines (1 of 2) [facility] Start: 02-21-1986 DTaP/Tdap/Td Vaccines (1 - Tdap) DTaP/Tdap/Td Vaccines (1 - Tdap) [facility] Start: 02-21-1983 Hepatitis B Vaccines (1 of 3 - 19+ 3-dose series) Hepatitis B Vaccines (1 of 3 - 19+ 3-dose series) [facility] Start: 02-21-1983 Urine screening for protein Diabetes: Urine Protein Screening [facility] Start: 02-21-1982 Diabetes mellitus screening Diabetes Screening [facility] Start: 02-21-1982 Hepatitis C screening Hepatitis C Screening [facility] Start: 02-21-1974 Diabetic foot examination Diabetes: Foot Exam [facility] Start: 02-21-1974 Glaucoma screening Diabetes: Retinopathy Screening [facility] Start: 02-21-1970 Pneumococcal Vaccine: Pediatrics (0 to 5 Years) and At-Risk Patients (6 to 64 Years) (1 - PCV) Pneumococcal Vaccine: Pediatrics (0 to 5 Years) and At-Risk Patients (6 to 64 Years) (1 - PCV) [facility] Start: 02-21-1970 Pneumococcal Vaccine: Pediatrics (0 to 5 Years) and At-Risk Patients (6 to 64 Years) (1 of 2 - PCV) Pneumococcal Vaccine: Pediatrics (0 to 5 Years) and At-Risk Patients (6 to 64 Years) (1 of 2 - PCV) [facility] Start: 02-21-1965 MMR Vaccines (1 of 1 - Standard series) MMR Vaccines (1 of 1 - Standard series) [facility] Start: 1965 COVID-19 Vaccine (#1) COVID-19 Vaccine (#1) [facility] Start: 1965 Creatinine measurement Creatinine Level [facility] Start: 1965 Echocardiography Echocardiogram [facility] Start: 1965 Hemoglobin A1c measurement Diabetes: Hemoglobin A1C [facility] Start: 1965 Hepatitis B Vaccines (1 of 3 - 3-dose series) Hepatitis B Vaccines (1 of 3 - 3-dose series) [facility] Start: 1965 HIV screening HIV Screening [facility] Start: 1965 Lipid panel Lipid Panel [facility] Start: 1965 Medicare Annual Wellness Visit Medicare Annual Wellness Visit (AWV) [facility] Start: 1965 Potassium measurement Potassium Level [facility] Start: 1965 Screening for malignant neoplasm of colon [facility] End: 07-21-2024 Basic metabolic 2000 panel - Serum or Plasma Basic Metabolic Panel Lab Routine Sinus bradycardia Chronotropic incompetence Sick sinus syndrome (CMS/HCC) Other fatigue 1 Occurrences starting 07/22/2023 until 07/21/2024 [facility] Work Phone: Comment on above: 1 Occurrences starting 07/22/2023 until 07/21/2024 End: 07-21-2024 CBC panel - Blood by Automated count CBC Lab Routine Sinus bradycardia Chronotropic incompetence Sick sinus syndrome (CMS/HCC) Other fatigue 1 Occurrences starting 07/22/2023 until 07/21/2024 [facility] Work Phone: Comment on above: 1 Occurrences starting 07/22/2023 until 07/21/2024 ECG 12 lead STAT ECG 12 lead STA T ECG STAT 08/05/2023 12:30 PM EDT [facility] Service Area Work Phone: ECG 12 lead STAT ECG 12 lead STA T ECG STAT 08/05/2023 5:12 PM EDT [facility] Work Phone: PPM IMPLANT DC PPM IMPLANT DC S inus bradycardia Chronotropic incompetence Sick sinus syndrome (CMS/HCC) Other fatigue [facility] Work Phone: End: 07-21-2024 Prothrombin time (PT) Protime-INR Lab Routine Sinus bradycardia Chronotropic incompetence Sick sinus syndrome (CMS/HCC) Other fatigue 1 Occurrences starting 07/22/2023 until 07/21/2024 [facility] Service Area Work Phone: Comment on above: 1 Occurrences starting 07/22/2023 until 07/21/2024 Payers Date Payer Category Payer Medicare HU[employer]NA MEDICARE HU[employer] GOLD CHOICE [id number] 2023-Present [address] [address] [place] [address] [id number] [id number] 2023 Medicare [id number] 1964 Unknown [id number] 2.16.840.1.873736.3.579.2.647 1964 Unknown [id number] 2.16.840.1.688881.3.579.2.647 1964 Unknown [id number] 2.16.840.1.584136.3.579.2.647 1964 Unknown [id number] 2.16.840.1.045222.3.579.2.1068 1964 Unknown [id number] 2.16.840.1.333873.3.579.2.356 1964 Unknown [id number] 2.16.840.1.394225.3.579.2.356 1964 Unknown [id number] 2.16.840.1.754716.3.579.2.593 1964 Unknown [id number] 2.16.840.1.696712.3.579.2.593 1964 Unknown [id number] 2.16.840.1.785319.3.579.2.593 1964 Unknown [id number] 2.16.840.1.651164.3.579.2.593 1964 Unknown [id number] 2.16.840.1.954669.3.579.2.593 1964 Unknown [id number] 2.16.840.1.252901.3.579.2.593 1964 Unknown [id number] 2.16.840.1.774652.3.579.2.593 1964 Unknown [id number] 2.16.840.1.996645.3.579.2.593 1964 Unknown [id number] 2.16.840.1.750792.3.579.2.593 1964 Unknown [id number] 2.16.840.1.400385.3.579.2.593 1964 Unknown [id number] 2.16.840.1.981291.3.579.2.593 1964 Unknown [id number] 2.16.840.1.816112.3.579.2.593 1964 Unknown [id number] 2.16.840.1.075621.3.579.2.593 1964 Unknown [id number] 2.16.840.1.565151.3.579.2.593 1964 Unknown [id number] 2.16.840.1.923275.3.579.2.593 1964 Unknown [id number] 2.16.840.1.886193.3.579.2.593 1964 Unknown [id number] 2.16.840.1.763722.3.579.2.593 1964 Unknown [id number] 2.16.840.1.877714.3.579.2.593 1964 Unknown [id number] 2.16.840.1.553055.3.579.2.593 1964 Unknown [id number] 2.16.840.1.697271.3.579.2.593 1964 Unknown [id number] 2.16.840.1.486389.3.579.2.593 1964 Unknown [id number] 2.16.840.1.755065.3.579.2.593 1964 Unknown [id number] 2.16.840.1.008217.3.579.2.593 1964 Unknown [id number] 2.16.840.1.993714.3.579.2.593 1964 Unknown [id number] 2.16.840.1.070960.3.579.2.1259 1964 Unknown [id number] 2.16.840.1.962857.3.579.2.1259 1964 Unknown [id number] 2.16.840.1.975598.3.579.2.1244 1964 Unknown [id number] 2.16.840.1.417198.3.579.2.1244 1964 Unknown [id number] 2.16.840.1.110639.3.579.2.1244 1964 Unknown [id number] 2.16.840.1.106400.3.579.2.1244 1964 Unknown [id number] 2.16.840.1.466329.3.579.2.1244 1964 Unknown [id number] 2.16.840.1.598031.3.579.2.1244 1964 Unknown [id number] 2.16.840.1.408929.3.579.2.1246 1964 Unknown [id number] 2.16.840.1.234968.3.579.2.1246 1964 Unknown [id number] 2.16.840.1.043087.3.579.2.1246 1964 Unknown [id number] 2.16.840.1.126853.3.579.2.1246 1960 Medicaid [id number] 1960 Medicare [id number] Unknown [id number] Unknown Social History Date Type Detail Facility Start: 07-13-2023 End: 08-10-2023 No alcohol use No alcohol use [facility] DO Work Phone: Comment on above: 1 pack daily; Start: 07-13-2023 End: 08-05-2023 Tobacco smoking status NHIS Smokes tobacco daily [facility] History of tobacco use Cigarette Smoker [facility] Work Phone: Start: 07-13-2023 End: 08-05-2023 Tobacco use and exposure Smokeless tobacco non-user [facility] Work Phone: Start: 07-22-2023 End: 08-10-2023 Alcohol intake Lifetime non-drinker (finding) [facility] Work Phone: Start: 07-13-2023 End: 08-10-2023 Tobacco use panel [facility] Work Phone: Start: 1965 Sex Assigned At Not on file [facility] Work Phone: Start: 07-12-2023 End: 08-10-2023 Exposure to SARS-CoV-2 (event) Not sure [facility] Medical Equipment Procedure Code Equipment Code Equipment Origin al Text Equipment Identifier Dates Lead, Capsurefix Novus, 52 Cm - [id number] Start: 08-05-2023 Lead, Capsurefix Novus, 45 Cm - [id number] Start: 08-05-2023 Pacemaker, Dual Chamber, Kae Mri Xt Dr - [id number] Start: 08-05-2023 Clinical Notes 08-31-2020 to [...] some point he had some evaluation in [place] that shows no significant obstructive coronary disease [...] night however but few episodes in the clinical practitioner hours were also noted 5. No symptoms [...] Diagnosis Date Arrhythmia CHF (congestive heart failure) ([facility]) COPD (chronic obstructive pulmonary disease) ([facility]) Hypertension Social History Social History Tobacco Use [...] breakfast cetirizine (ZYRTEC) 10 mg, oral, Nightly plafkcsncjo-kavuacknd-aeepdusd (TRELEGY-ELLIPTA) 100-62.5-25 mcg blister with device 1 [...] prepare this document. documented in this encounter [facility] Work Phone: 08-10-2023 Instructions Vero Mccarthy LPN [...] Amador Son MD documented in this encounter [facility] Work Phone: 08-05-2023 Nurse Note Patient discharge instructions reviewed with patient and , verbalized understanding. Lt chest dressing remains dry/intact, no hematoma, no ecchymosis. Patient able to teachback site care instructions, follow up appointments. IV x2 removed and patient discharged to home via w/c. [facility] 08-05-2023 Nurse Note Patient discharge instructions reviewed [...] and ice pack over site. Sterling from [employer] in room speaking to Pt and SO educating on home device monitor. Pt returned to room after echocardiogram. Denies needs at this time. documented in this encounter [facility] Work Phone: 08-05-2023 Nurse Note Patient sitting up in chair, denies any complaints of incisional pain. Lt upper chest incision remains dry/intact. Will begin discharge instructions. [facility] Work Phone: 08-05-2023 Nurse Note Patient ambulated to BR, gait steady. Pacer rep has already met with patient and . Lt upper chest dressing remains dry/intact. Lt arm in immobilizer and ice pack over site. [facility] Work Phone: 08-05-2023 Note Formatting of this n ote might be different from the original. Post EKG and CXR performed at bedside. Pt denies needs at this time. Left chest remains soft and stable with no hematoma or oozing. [facility] Work Phone: 08-05-2023 Miscellaneous Notes Post EKG [...] discussed with patient. documented in this encounter [facility] Work Phone: 08-05-2023 Hospital Discharge instructions Ana M Kumari APRN-MASTER FIRE CONTROL TECHNICIAN - 08/05/2023 5:00 PM EDT Images from [...] your arm above shoulder level. Do not fruit picker machine operator items that weigh greater than 10 lbs [...] have been instructed by the device company vendor representatives regarding remote home monitoring. There are multiple [...] sent through Care Everywhere.Pacemaker Insertion Discharge Instructions (Albanian)documented in this encounter [facility] Work Phone: 08-05-2023 Note Formatting of this [...] Pt denies further needs at this time. [facility] Work Phone: 08-05-2023 Note Table formatting fro [...] of infection. The patient should call the control valve mechanic immediately if symptoms recur, or for any problems. The patient has been instructed accordingly. 2. Follow up with [facility] office in seven days for post-operative wound [...] Device implanted Device implanted Medtronic dual-chamber pacemaker [place] XT DR MRI model number W1 DR 017 number [id number]. Right atrial lead Medtronic 5076/45 serial number [id number] 8 mm [id number]. Imp (more content not included)... [id number] 08-05-2023 Note Formatting of this n ote might be different from the original. Sedation Plan ASA 2 Mallampati class: II. Risks, benefits, and alternatives discussed with patient. [facility] Work Phone: 08-05-2023 Attending History and physical [...] some point he had some evaluation in [place] that shows no significant obstructive coronary disease [...] night however but few episodes in the clinical practitioner hours were also noted 5. No symptoms [...] breakfast cetirizine (ZYRTEC) 10 mg, oral, Nightly tvjemzamwcl-xsezckviq-csmidzqk (TRELEGY-ELLIPTA) 100-62.5-25 mcg blister with device 1 [...] software was utilized to prepare this document. [facility] Work Phone: 08-05-2023 History and physical note [...] some point he had some evaluation in [place] that shows no significant obstructive coronary disease [...] night however but few episodes in the clinical practitioner hours were also noted 5. No symptoms [...] breakfast cetirizine (ZYRTEC) 10 mg, oral, Nightly mtthtvfjjsq-scpgqpzgb-azcwspzy (TRELEGY-ELLIPTA) 100-62.5-25 mcg blister with device 1 [...] prepare this document. documented in this encounter [facility] Work Phone: 08-05-2023 Nurse Note Sterling from [employer] in room speaking to Pt and SO educating on home device monitor. [facility] 08-05-2023 Nurse Note Pt returned to room after echocardiogram. Denies needs at this time. [facility] Work Phone: 07-22-2023 History of Present illness [...] some point he had some evaluation in [place] that shows no significant obstructive coronary disease [...] night however but few episodes in the clinical practitioner hours were also noted 5. No symptoms [...] breakfast cetirizine (ZYRTEC) 10 mg, oral, Nightly vnsrcskhyfx-cbfwdzqsq-qyeawols (TRELEGY-ELLIPTA) 100-62.5-25 mcg blister with device 1 [...] prepare this document. documented in this encounter [facility] Work Phone: 07-22-2023 Instructions Jazz Flynn RN [...] AMADOR SON MD documented in this encounter [facility] Work Phone: 07-20-2022 Note CONSULTATION PROCEDURE DATE: [...] right medial portion of his leg. [facility] 05-07-2022 Note CONSULTATION CONSULTATION DATE: 05/07/2022 [...] three months' time unless otherwise indicated. [facility] 01-14-2022 Note CONSULTATION CONSULTATION DATE: 01/14/2022 [...] it was recommended that he see a ict support and test engineers, which he did do. He did a Holter monitor study and is following up with his ict support and test engineers on 01/28/2022. Current medications include gabapentin 300 [...] agrees with the plan of care. [facility] 11-19-2021 Note CONSULTATION CONSULTATION DATE: 11/19/2021 [...] to S1. Activities such as standing, walking, clinical practitioner and evening hours, stairs, bending and physical [...] be followed up in the clinic post-procedure. PSYCHIATRIC Signed and Approved by: TERESO COLMENARES . 11/27/2021 14:13:00 [facility] 10-22-2021 Note CONSULTATION CONSULTATION DATE: 10/22/2021 [...] patient agrees with the plan of care. PSYCHIATRIC Signed and Approved by: TERESO COLMENARES . 11/04/2021 16:23:00 [facility] 10-01-2021 Note CONSULTATION CONSULTATION DATE: 10/01/2021 [...] shape. He has seen Dr. Nunn in [place] in the past regarding his back, and [...] Patient agrees with the plan of care. PSYCHIATRIC Signed and Approved by: TERESO COLMENARES . 10/08/2021 16:01:00 [facility] 08-31-2020 Note Microbiology PROCEDURE: Blood Culture Charcoal [R1] SOURCE: Blood BODY SITE: Arm L COLLECTED DATE/TIME: 08/24/2020 01:07 EDT RECEIVED DATE/TIME: 08/24/2020 03:43 EDT START DATE/TIME: 08/24/2020 03:43 EDT FREE TEXT SOURCE: Peripheral vein site #[address], David Daivd Palacio MD FINAL REPORTS Final Report [] Verified Date/Time: 08/31/2020 07:00 EDT No growth at 7 days. Performing Locations R1: This [facility] performed at: [facility], [address] [place] [address], [address] [place] [address], [facility] Comment on above: Performed By: #### 1 [id number] ####[address] [address] 08-31-2020 Note Microbiology PROCEDURE: Blood Culture Charcoal [...] Locations R1: This test was performed at: [facility], [address] [place] [address], [address] [place] [address], [facility] Comment on above: Performed By: #### 1 [id number] ####[place] [address] Evaluation note Diagnosis 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 Sinus bradycardia Other specified cardiac dysrhythmias Establishing care with new doctor, encounter for BMI 34.0-34.9,adult Sick sinus syndrome (CMS/HCC) Sinoatrial node dysfunction Simple chronic bronchitis (CMS/HCC) Simple chronic bronchitis Current smoker Other fatigue Preoperative cardiovascular examination Pre-operative cardiovascular examination documented in this encounter [facility] Work Phone: Evaluation note* Diagnosis Other fatigue- [...] dysfunction Other fatigue documented in this encounter [facility] Work Phone: Evaluation note* Diagnosis Localized swelling on left hand S/P placement of cardiac pacemaker 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 Abnormal stress test Other nonspecific abnormal cardiovascular system function study Sinus bradycardia Other specified cardiac dysrhythmias Sick sinus syndrome (CMS/HCC) Sinoatrial node dysfunction Essential hypertension, benign BMI 34.0-34.9,adult Current smoker documented in this encounter [facility] Work Phone: Evaluation note* Diagnosis Localized swelling on left hand S/P placement of cardiac pacemaker documented in this encounter [facility] Work Phone: Evaluation note* Diagnosis Cardiac pacemaker in situ Sinoatrial node dysfunction (Multi) Sinoatrial node dysfunction documented in this encounter [facility] Work Phone: History of Present illness Narrative* Patient is here for cardiovascular evaluation for second opinion in regard to documents resting sinus bradycardia. The patient is 56-year-old with history of tobacco use and COPD was evaluated recently due to shortness of breath and his stress test showed questionable inferior wall ischemia. This led to a cardiac evaluation in [place] and its not clear to me whether [...] recent ischemic evaluation * 5 follow-up in [address] [place] [address] [employer] Work Phone: History of Present illness Narrative* Patient is here for cardiovascular evaluation for second opinion in regard to documents resting sinus bradycardia. The patient is 56-year-old with history of tobacco use and COPD was evaluated recently due to shortness of breath and his stress test showed questionable inferior wall ischemia. This led to a cardiac evaluation in [place] and its not clear to me whether [...] ischemic evaluation * 5 follow-up in 6 [facility] Work Phone: History of Present illness Narrative* Patient is here for cardiovascular evaluation for second opinion in regard to documents resting sinus bradycardia. The patient is 56-year-old with history of tobacco use and COPD was evaluated recently due to shortness of breath and his stress test showed questionable inferior wall ischemia. This led to a cardiac evaluation in [place] and its not clear to me whether [...] ischemic evaluation * 5 follow-up in 6 [facility] Work Phone: History of Present illness [...] ischemic evaluation. He underwent cardiac catheterization in [place] which showed no significant obstructive disease * [...] EKG or earlier if the need arise [place] [address] DO Work Phone: Summary Purpose Family History [...] Preoperative cardiovascular examination Procedures Transthoracic Echo Complete UT ECHO TTHRC R-T 2D W/WOM-MODE COMPL SPEC&COLR D Amador Son MD [address] [address] Referral ID Status Reason Start Date Expiration Date Visits Requested Visits Authorized [id number] Pending Review Perform Procedure 07/22/2023 07/21/2024 1 1 Specialty Diagnoses / Procedures Referred By Contac t Referred To Contact Diagnoses Sinus bradycardia Establishing care with new doctor, encounter for Procedures ECG 12 lead (Clinic Performed) Amador Son MD [address] [facility] [address] [place] [address] Referral ID Status Reason Start Date Expiration Date V isits Requested Visits Authorized [id number] Authorized 07/22/2023 07/21/2024 1 1 Specialty Diagnoses / Procedures Referred By Contac t Referred To Contact Radiology Diagnoses Pacemaker Procedures XR chest 2 views Ana M Kumari, MOBILITY ENGINEER-MASTER FIRE CONTROL TECHNICIAN [address] [facility], [facility] [address] [place] [address] Referral ID Status Reason Start Date Expiration Date Visits Requested Visits Authorized [id number] Authorized Perform Procedure 08/05/2023 08/04/2024 1 1 Specialty Diagnoses / Procedures Referred By Contac t Referred To Contact Cardiology Diagnoses Pacemaker Procedures Cardiac Device Check - In Clinic Ana M Kumari MOBILITY ENGINEER-MASTER FIRE CONTROL TECHNICIAN [address] [facility], [facility] [address] [place] [address] Referral ID Status Reason Start Date Expiration Date Visits Requested Visits Authorized [id number] Pending Review Perform Procedure 08/05/2023 08/04/2024 1 1 Specialty Diagnoses / Procedures Referred By Contac t Referred To Contact Cardiology Diagnoses Localized swelling on left hand S/P placement of cardiac pacemaker Procedures Vascular US upper extremity venous duplex left Naima Wright, MOBILITY ENGINEER-MASTER FIRE CONTROL TECHNICIAN [address] [facility], [address] [address] Referral ID Status Reason Start Date Expiration Date Visits Requested Visits Authorized [id number] Authorized Perform Procedure 08/09/2023 08/08/2024 1 1 Specialty Diagnoses / Procedures Referred By Contac t Referred To Contact Cardiology Diagnoses Cardiac pacemaker in situ Sinoatrial node dysfunction (Multi) Procedures Cardiac Device Check - Remote Amador Son MD [address] [place] [address] [address] [place] [address] Referral ID Status Reason Start Date Expiration Date Visits Requested Visits Authorized [id number] Pending Review Perform Procedure 08/08/2023 08/07/2024 1 1 Additional Source Comments (unrecognized sect ion and content) No Status Records FoundNo Status Records FoundNo Status Records FoundNo Status Records FoundNo Status Records FoundNo Status Records FoundNo Status Records FoundNo Status Records FoundNo Status Records Found INFORMATION SOURCE (unrecogn ized section and content) DATE CREATED AUTHOR 03/06/2021 [facility] DATE CREATED AUTHOR AUTHOR'S ORGANIZ ATION 03/12/2021 [facility] DATE CREATED AUTHOR AUTHOR'S ORGANIZ ATION 02/16/2022 [facility] DATE CREATED AUTHOR AUTHOR'S ORGANIZ ATION 07/16/2022 [facility] DATE CREATED AUTHOR AUTHOR'S ORGANIZ ATION 07/16/2022 [employer] DATE CREATED AUTHOR AUTHOR'S ORGANIZ ATION 09/17/2022 [facility] DATE CREATED AUTHOR AUTHOR'S ORGANIZ ATION 10/10/2023 [facility] DATE CREATED AUTHOR AUTHOR'S ORGANIZ ATION 11/10/2023 [facility] DATE CREATED AUTHOR AUTHOR'S ORGANIZ ATION 11/30/2023 [facility] Reason for Visit (unrecogniz ed section and content) Reason Comments New Patient Visit Pt is here today as a new patient from Dr. Ty Specialty Diagnoses / Procedures Referred By Isela mckay Referred To Contact Cardiology Diagnoses Sinus bradycardia Valentino Ty MD [address] [facility], [address] [place] [address] Amador Son MD [address] [facility], [address] [place] [address] Referral ID Status Reason Start Date Expiration Date Visits Requested Visits Authorized [id number] Authorized Specialty Services Required 07/15/2023 07/14/2024 1 1 Specialty Diagnoses / Procedures Referred By Isela mckay Referred To Contact Diagnoses Sinus bradycardia Chronotropic incompetence Sick sinus syndrome (CMS/HCC) Other fatigue Sinus bradycardia [R00.1] Chronotropic incompetence [I45.89] Sick sinus syndrome (CMS/HCC) [I49.5] Other fatigue [R53.83] Procedures UT INS NEW/RPLCMT PRM PM W/TRANSV ELTRD ATRIAL&VENT PPM IMPLANT DUAL Amador Son MD [address] [facility] [address] [place] [address] [employer] [employer] [address] [place] [address] Referral ID Status Reason Start Date Expiration Date Visits Re quested Visits Authorized [id number] 1 1 Reason Comments Wound Check Patient is having sw elling in his right hand Specialty Diagnoses / Procedures Referred By Isela mckay Referred To Contact Cardiology Diagnoses Localized swelling on left hand S/P placement of cardiac pacemaker Procedures Vascular US upper extremity venous duplex left Yusuf-Naima Rodriguez E, MOBILITY ENGINEER-MASTER FIRE CONTROL TECHNICIAN [address] [facility] Medical Office [facility], [facility] [address] [place] [address] Referral ID Status Reason Start Date Expiration Date Visits Requested Visits Authorized [id number] Authorized Perform Procedure 08/09/2023 08/08/2024 1 1 Specialty Diagnoses / Procedures Referred By Isela mckay Referred To Contact Cardiology Diagnoses Cardiac pacemaker in situ Sinoatrial node dysfunction (Multi) Procedures Cardiac Device Check - Remote Amador Son MD [address] [facility] [address] [place] [address] Referral ID Status Reason Start Date Expiration Date Visits Requested Visits Authorized [id number] Pending Review Perform Procedure 08/08/2023 08/07/2024 1 1 Care Teams (unrecognized sec tion and content) 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 Machine 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 Relationship Specialty Start Date End Date Ishmael Simon MD [address] [place] [address] PCP - General Family Medicine 06/29/23 Hoop Bending Machine Operator Relationship Specialty Start Date End Date Ishmael Simon MD [address] [place], [place] [id number] PCP - General Family Medicine 06/29/23 [employer] Relationship Specialty Start Date End Date Ishmael Simon MD [address] [place] [id number] PCP - General Family Medicine 06/29/23 [employer] Operator Relationship Specialty Start Date End Date Ishmael Simon MD [address] [place] [id number] PCP - General Family Medicine 06/29/23 [employer] Operator Relationship Specialty Start Date End Date Ishmael [...] Starting on Tue08/05/23 at 1230, Preprocedure, call center professional to EP lab 1221 ([place] - [...] er: Amador Son MD)1557 (Given - Provider: Amador Son MD)1612 (Given - Provider: Amador Son [...] BE BASED ON THE PRIMARY CLINICAL RECORDS. [facility] provides no warranty or guarantee of the accuracy or completeness of information in this document.
== END 2023-12-27 13:39 | disposition home or self-care (01) ==
LOC: PM 13:38
PROVIDERS: PCP Family Medicine; Visit Provider Anesthesiology Pain Medicine
DX: M47.816 Spondylosis without myelopathy or radiculopathy, lumbar region (principal); M54.50 Low back pain, unspecified
CPT/HCPCS: G0463

== ENCOUNTER 2024-01-24 08:42 | Day surgery (SDC) | payer MEDICARE, SELFPAY ==
[2024-01-24 09:01] VITALS: BP 153/92; PULSE 83; TEMP 36.9; O2SAT 98
--- OUTSIDE RECORDS SUMMARY | 2024-01-24 09:02 | XMS_ITS | CCD ---
Author Organization [facility] Care Team Providers Care Deputy [employer] Name Role Phone SIMONE RUIZ Admitting Unavailable SIMONE RUIZ Attending Unavailable ISHMAEL SIMON Referring Unavailable ISHMAEL SIMON Primary Care Unavailable JEY ELISE Attending Unavailable JEY ELISE R Surgeon Unavailable AK Procedure Practitioner Unavailab ISHMAEL Campoverde Primary Care Unavailable ISHMAEL SIMON Referring Unavailable JEY ELISE R Admitting Unavailable JEY ELISE Attending Unavailable ISHMAEL SIMON Primary Care Unavailable ISHMAEL SIMON Referring Unavailable JEY ELISE R Admitting Unavailable Ishmael Simon Unavailable Unavailable Unavailable Carissa, Dr. Armstrong Attending Unavaila ble Traboulsschavez, Dr. Armstrong Referring Unavaila ble Naderer, Dr. Ishmael Vallejo Primary Care Unavai lable Carissa, Dr. Armstrong Attending Unavaila ble Traboulnic, Dr. Armstrong Referring Unavaila ble Naderer, Dr. Ishmael Vallejo Primary Care Unavai labjayla Simon, Dr. Ishmael Vallejo Primary Care Unavai lable Alfred, Dr. Ishmael Vlalejo Referring Unavai lable Trabsandi, Dr. Armstrong Attending [...] vailable LAKSHMIPATHY ., NARENDSOSA Consulting Anupama vailable NADEREMarilee, DR ISHMAEL Rae Primary Care Unavailable [...] RICKY Bateman Attending Unavailable NADERER, DR ISHMAEL Rea Primary Care Unavailable NASRA, HOANG Consulting Unavailable [...] Provider Ishmael Simon MD Primary Care Provider VALENTINO TY Attending Unavailable NADJANEE, ISHMAEL VALLEJO Primary Care Unavailabl e VALENTINO TY Referring Unavailable NADERER, ISHMAEL VALLEJO Primary Care Unavailabl e AMADOR SON Attending Unavailable NADERER, ISHMAEL VALLEJO Primary Care Unavailabl e VALENTINO TY Referring Unavailable AMADOR SON Attending Unavailable NADERER, ISHMAEL VALLEJO Primary Care Unavailabl e NADERER, ISHMAEL WOODARDONY Primary Care Unavailabl e MCKENNA, NAIMA E Attending Unavaila ble NADERER, ISHMAEL WOODARDONY Primary Care Unavailabl e MCKENNA, NAIMA E Referring Unavaila ble NADERER, ISHMAEL VALLEJO Primary Care Unavailabl e HUY, AMADOR Segura Referring Unavailable NADERER, ISHMAEL WOODARDONY Primary Care Unavailabl e ANA M KUMARI Referring Unavailable NADERER, ISHMAEL VALLEJO Primary Care Unavailkait e ANA M KUMARI Referring Unavailable NADERER, ISHMAEL VALLEJO Primary [facility] Unavailabl e NADERER, ISHMAEL Attending Unavailable NADERER, ISHMAEL Attending Unavailable NADERER, ISHMAEL Attending Unavailable Medications Current Medications Medication Drug Class(es) [...] Ordered: 01-Apr-2021 DO Start : 30-Mar-2021 Active [id number] actuat albuterol 0.09 mg/actuat metered dose [...] 07-22-2023 Episodic Other aftercare (1 source) Other fci (current) drug therapy; Translations: [OTH RESIDENTIAL CURRENT DRUG THERAPY] Onset: 05-13-2022 Episodic Other [...] INDICATION: Signs/Symptoms:Pacem marilyn. COMPARISON: 08/05/2023 ACCESSION NUMBER(S): [id number] ORDERING CLINICIAN: ANA M KUMARI FINDINGS: Left-sided pacemaker in place. CARDIOMEDIASTINAL SILHOUETTE: Cardiomediastinal silhouette is normal in size and configuration. LUNGS: Lungs are clear. ABDOMEN: No remarkable upper abdominal findings. BONES: No acute osseous changes. IMPRESSION: 1. No evidence of acute cardiopulmonary process. MACRO: None Signed by: Sancho Gross 11/10/2023 8:35 AM Dictation workstation: [id number] [facility] Comment on above: Order Comment: Repor t to [facility] registration on 11/09/2023 at 8:30 AM for chest x-ray and device check prior to appointment with Dr. Son at 10 AM Cardiac Device Check - Remot neeta 09-26-2023 [facility] Work Phone: Radiology Study observation (narrative) [facility] Work Phone: US.doppler Upper extremity v ein - lefton 08-10-2023 Exam negative for acute deep venous thrombosis in the left upper extremity MACRO: None Signed by: Simone Ramos 08/10/2023 3:07 PM Dictation workstation: [id number] MMODAL Interpreted By: Simone Ramos, STUDY: VAS US UPPER EXTREMITY VENOUS DUPLEX LEFT; 08/10/2023 2:47 pm INDICATION: Signs/Symptoms: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 COMPARISON: Portable chest 05 August 2023 ACCESSION NUMBER(S): [id number] ORDERING CLINICIAN: NAIMA WRIGHT TECHNIQUE: Vascular ultrasound [...] vessels patent and, where applicable, normally compressible MMODAL Simone Ramos MD - 08/10/2023 Interpreted By: Simone Ramos, STUDY: [facility] US UPPER EXTREMITY VENOUS DUPLEX LEFT; 08/10/2023 2:47 pm INDICATION: Signs/Symptoms: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 COMPARISON: Portable chest 05 August 2023 ACCESSION NUMBER(S): [id number] ORDERING CLINICIAN: NAIMA WRIGHT TECHNIQUE: Vascular ultrasound [...] Simone Ramos 08/10/2023 3:07 PM Dictation workstation: [id number] [facility] Work Phone: Radiology Study observation (narrative) [facility] Work Phone: US.doppler Upper extremity v ein - leftOrdered By: Simone Ramos on 08-10-2023 [facility] Work Phone: VASC US UPPER EXTREMITY VENO US DUPLEX LEFTon 08-10-2023 [facility] US UPPER EXTREMITY VENOUS DUPLEX LEFT Interpreted By: Simone Ramos, STUDY: [facility] US UPPER EXTREMITY VENOUS DUPLEX LEFT; 08/10/2023 2:47 pm INDICATION: Signs/Symptoms: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 COMPARISON: Portable chest 05 August 2023 ACCESSION NUMBER(S): [id number] ORDERING CLINICIAN: NAIMA WRIGHT TECHNIQUE: Vascular ultrasound [...] Simone Ramos 08/10/2023 3:07 PM Dictation workstation: [id number] [facility] Basic metabolic 2000 panelon 08-05-2023 Anion gap [Moles/Vol] 12 mmol/L 10 - 2 0 mmol/L [facility] Calcium [Mass/Vol] 9.6 mg/dL 8.6 - 10. 3 mg/dL [facility] Chloride [Moles/Vol] 102 mmol/L 98 - 10 7 mmol/L [facility] CO2 [Moles/Vol] 29 mmol/L 21 - 32 mmol/L [facility] Creatinine [Mass/Vol] 1.12 mg/dL 0.50 - 1.30 mg/dL [facility] GFR/1.73 sq M.predicted among non-blacks MDRD (S/P/Bld) [Vol rate/Area] 76 mL/min/{1.73_m2} - PINF [facility] Comment on above: Calculations of yang mated GFR are performed using the 2020 CKD-EPI Study Refit equation without the race variable for the IDMS-Traceable creatinine methods. https://jasn.asnjournals.org/content//ASN.2020 805152 Glucose [Mass/Vol] 95 mg/dL 74 - 99 mg/dL [facility] Interpretation and review of laboratory results Normal [facility] Potassium [Moles/Vol] 4.0 mmol/L 3.5 - 5.3 mmol/L [facility] Sodium [Moles/Vol] 139 mmol/L 136 - 145 mmol/L [facility] Urea nitrogen [Mass/Vol] 17 mg/dL 6 - 23 mg/dL [facility] Anion gap [Moles/Vol] 12 mmol/L Normal 10-20 [facility] Comment on above: Performed By: #### 2 4321-2 #### JAIMEE QURESHI (23649) [facility] [address] [place] [address] 66029 Calcium [Mass/Vol] 9.6 mg/dL Normal 8.6-10.3 [facility] Comment on above: Performed By: #### 2 4321-2 #### JAIMEE QURESHI (88007) [facility] [address] [place] [address] 23942 Chloride [Moles/Vol] 102 mmol/L Normal 98-107 [facility] Comment on above: Performed By: #### 2 4321-2 #### JAIMEE QURESHI (08486) [facility] [address] [place] [address] 79848 CO2 [Moles/Vol] 29 mmol/L Normal 21-32 [facility] Comment on above: Performed By: #### 2 4321-2 #### GRISELDAIBDEION QURESHI (65836) [facility] [address] [place] [address] 72961 Creatinine [Mass/Vol] 1.12 mg/dL Normal 0.50-1.30 [facility] Comment on above: Performed By: #### 2 4321-2 #### GRISELDAIBDEION QURESHI (50336) [facility] [address] [place] [address] 62714 Glomerular filtration rate/1.73 sq M.predicted 76 mL/min/1.73m*2 Normal >60 [facility] Comment on above: Result Comment: Calc ulations of estimated GFR are performed using the 2020 CKD-EPI Study Refit equation without the race variable for the IDMS-Traceable creatinine methods. https://jasn.asnjournals.org/content//ASN.2020 815585 Performed By: #### 2 4321-2 #### JAIMEE QURESHI (57353) [facility] [address] [place] [address] 32673 Glucose [Mass/Vol] 95 mg/dL Normal 74-99 [facility] Comment on above: Performed By: #### 2 4321-2 #### JAIMEE QURESHI (13131) [facility] [address] [place] [address] 73768 Potassium [Moles/Vol] 4.0 mmol/L Normal 3.5-5.3 [facility] Comment on above: Performed By: #### 2 4321-2 #### JAIMEE QURESHI (38071) [facility] [address] [place] [address] 09507 Sodium [Moles/Vol] 139 mmol/L Normal 136-145 [facility] Comment on above: Performed By: #### 2 4321-2 #### JAIMEE QURESHI (37325) [facility] [address] [place] [address] 24227 Urea nitrogen [Mass/Vol] 17 mg/dL Normal 6-23 [facility] Comment on above: Performed By: #### 2 4321-2 #### JAIMEE QURESHI (40084) [facility] [address] [place] [address] 38879 CBC panel Auto (Bld)on 08-04 Erythrocyte distribution width (RBC) [Ratio] 13.0 % 11.5 - 14.5 % [facility] Hematocrit (Bld) [Volume fraction] 46.9 % 41.0 - 52.0 % [facility] Hemoglobin (Bld) [Mass/Vol] 16.1 g/dL 13.5 - 17.5 g/dL [facility] Interpretation and review of laboratory results Normal [facility] MCH (RBC) [Entitic mass] 31.5 pg 26.0 - 34.0 pg [facility] MCHC (RBC) [Mass/Vol] 34.3 g/dL 32.0 - 36.0 g/dL [facility] MCV (RBC) [Entitic vol] 92 fL 80 - 100 fL [facility] Nucleated RBC/100 WBC (Bld) [Ratio] 0.0 % [facility] Platelets (Bld) [#/Vol] 279 10*3/uL [facility] RBC (Bld) [#/Vol] 5.11 10*6/uL [facility] WBC (Bld) [#/Vol] 8.9 10*3/uL [facility] Erythrocyte distribution width (RBC) [Ratio] 13.0 % Normal 11.5-14.5 [facility] Comment on above: Performed By: #### 5 8410-2 #### JAIMEE QURESHI (03807) [facility] ([facility]) [address] [place] [address] 13681 Hematocrit (Bld) [Volume fraction] 46.9 % Normal 41.0-52.0 [facility] Comment on above: Performed By: #### 5 8410-2 #### JAIMEE QURESHI (90334) [facility] [address] [place] [address] 15644 Hemoglobin (Bld) [Mass/Vol] 16.1 g/dL Normal 13.5-17.5 [facility] Comment on above: Performed By: #### 5 8410-2 #### JAIMEE QURESHI (08223) [facility] [address] [place] [address] 09044 MCH (RBC) [Entitic mass] 31.5 pg Normal 26.0-34.0 [facility] Comment on above: Performed By: #### 5 8410-2 #### JAIMEE QURESHI (56297) [facility] [address] [place] [address] 58749 MCHC (RBC) [Mass/Vol] 34.3 g/dL Normal 32.0-36.0 [facility] Comment on above: Performed By: #### 5 8410-2 #### JAIMEE QURESHI (43717) [facility] [address] [place] [address] 24097 MCV (RBC) [Entitic vol] 92 fL Normal 80-100 [facility] Comment on above: Performed By: #### 5 8410-2 #### JAIMEE QURESHI (06641) [facility] [address] [place] [address] 46908 Nucleated RBC/100 WBC (Bld) [Ratio] 0.0 /100 WBCs Normal 0.0-0.0 [facility] Comment on above: Performed By: #### 5 8410-2 #### JAIMEE QURESHI (22257) [facility] [address] [place] [address] 03976 Platelets (Bld) [#/Vol] 279 x10*3/uL Normal 150-450 [facility] Comment on above: Performed By: #### 5 8410-2 #### JAIMEE QURESHI (62717) [facility] [address] [place] [address] 39589 RBC (Bld) [#/Vol] 5.11 x10*6/uL Normal 4.50-5.90 [facility] Comment on above: Performed By: #### 5 8410-2 #### JAIMEE QURESHI (88627) [facility] [address] [place] [address] 15411 WBC (Bld) [#/Vol] 8.9 x10*3/uL Normal 4.4-11.3 [facility] Comment on above: Performed By: #### 5 8410-2 #### JAIMEE QURESHI (57359) [facility] ([facility]) [address] [place] [address] 94757 Electrophysiology studyon [facility] Work Phone: PT and aPTT panel Coag (PPP) on 08-05-2023 aPTT Coag (PPP) [Time] 34 s [facility] INR Coag (PPP) [Relative time] 1.0 {INR} 0.9 - 1.1 [facility] Interpretation and review of laboratory results Normal [facility] PT Coag (PPP) [Time] 11.0 s [facility] The APTT is no longer used for monitoring Unfractionated Heparin Therapy. For monitoring Heparin Therapy, use the Heparin Assay. [facility] aPTT Coag (PPP) [Time] 34 s Normal 27-38 [facility] Comment on above: Order Comment: The A PTT is no longer used for monitoring Unfractionated Heparin Therapy. For monitoring Heparin Therapy, use the Heparin Assay. Performed By: #### 3 4529-8 #### JAIMEE QURESHI (72440) [facility] [address] [place] [address] 29722 INR Coag (PPP) [Relative time] 1.0 Normal 0.9-1.1 [facility] Comment on above: Order Comment: The A PTT is no longer used for monitoring Unfractionated Heparin Therapy. For monitoring Heparin Therapy, use the Heparin Assay. Performed By: #### 3 4529-8 #### JAIMEE QURESHI (78762) [facility] ([facility]) [address] [place] [address] 57972 PT Coag (PPP) [Time] 11.0 s Normal 9.8-12.8 [facility] Comment on above: Order Comment: The A PTT is no longer used for monitoring Unfractionated Heparin Therapy. For monitoring Heparin Therapy, use the Heparin Assay. Performed By: #### 3 4529-8 #### JAIMEE QURESHI (52544) [facility]) [address] [place] [address] 86364 TRANSTHORACIC ECHO (TTE) COM Amarilis 08-05-2023 TRANSTHORACIC ECHO (TTE) COMPLETE [address] [address] TRANSTHORACIC ECHOCARDIOGRAM REPORT Patient Name: LILIANA MICHAELS Reading Physician: [id number] Batsheva Morris MD, [facility] Study Date: 08/05/2023 Ordering Provider: [id number] ANA M ANGEL MRN/PID: [id number] Fellow: Nurse: Date of /Age: 10 1965 / 58 Software Sales Manager: Eli Pisano RDCS Gender: M Additional Staff: Height: 162.56 cm Admit Date: Weight: 90.72 kg Admission Status: Outpatient BSA / BMI: 1.96 m2 / 34.33 Department Location: [place] [address] Echo Lab Blood Pressure: 128 /73 mmHg Study Type: TRANSTHORACIC ECHO (TTE) COMPLETE Diagnosis/ICD: Bradycardia, unspecified-R00.1 Indication: Abnormal EKG, Pre-EP CPT Codes: Echo Complete w Full Doppler-29958 Study Detail: The following Echo studies were [...] LA Area A2C: 18.9 cm2 LA Major Fancy Gap A4C: 5.8 cm LA Major Fancy Gap A2C: 5.5 cm LA Volume Index: 27.0 [...] 1.3 m/s (0.6-0.9m/s) PV Max P.6 mmHg [id number] Batsheva Morris MD, FACC Electronically signed on 08/05/2023 at 2:30:14 PM Final Normal [facility] US Heart TransthoracicOrdere d By: Batsheva Morris on 08-05-2023 Aortic Valve Area by Continuity of Peak Velocity 2.42 cm2 [facility] Work Phone: Aortic Valve Area by Continuity of VTI 2.62 cm2 [facility] Work Phone: AV mn grad 4.0 mmHg [facility] Work Phone: AV pk grad 8.2 mmHg [facility] Work Phone: AV pk abiodun 1.43 m/s [facility] Work Phone: LA vol index A/L 29.3 ml/m2 [facility] Work Phone: LV A4C EF 62.4 [facility] Work Phone: LV biplane EF 60 % [facility] Work Phone: LVIDd 5.28 cm [facility] Work Phone: LVOT diam 2.00 cm [facility] Work Phone: MV avg E/e' ratio 7.78 [facility] Work Phone: MV E/A ratio 0.88 [facility] Work Phone: RV free wall pk S' 15.40 cm/s [facility] Work Phone: RVSP 23.4 mmHg [facility] Work Phone: Tricuspid annular plane systolic excursion 3.6 cm [facility] Work Phone: [facility] Work Phone: US Heart Transthoracicon [address] [address] TRANSTHORACIC ECHOCARDIOGRAM REPORT Patient Name: LILIANA Quiñones Physician: [id number] Morris MD, [facility] Study Date: 08/05/2023 Ordering Provider: [id number] ANA M ANGEL MRN/PID: [id number] Fellow: Nurse: Date of /Age: 10 1965 / 58 Software Sales Manager: Eli Pisano [facility] Gender: M Additional Staff: Height: 162.56 cm Admit Date: Weight: 90.72 kg Admission Status: Outpatient BSA / BMI: 1.96 m2 / 34.33 Department Location: [facility]/m2 Echo Lab Blood Pressure: 128 /73 mmHg Study Type: TRANSTHORACIC ECHO (TTE) COMPLETE Diagnosis/ICD: Bradycardia, unspecified-R00.1 Indication: Abnormal EKG, Pre-EP CPT Codes: Echo Complete w Full Doppler-00773 Study Detail: The following Echo studies were [...] LA Area A2C: 18.9 cm2 LA Major Fancy Gap A4C: 5.8 cm LA Major Fancy Gap A2C: 5.5 cm LA Volume Index: 27.0 [...] not included)... Batsheva Alexander MD - 08/05/2023 [place] [address] TRANSTHORACIC ECHOCARDIOGRAM REPORT Patient Name: LILIANA MICHAELS Reading Physician: [id number] Batsheva Morris MD, [facility] Study Date: 08/05/2023 Ordering Provider: [id number] ANA M ANGEL MRN/PID: [id number] Fellow: Nurse: Date of /Age: 10 1965 Software Sales Manager: Eli Pisano RDCS Gender: M Additional Staff: Height: 162.56 cm Admit Date: Weight: 90.72 kg Admission Status: Outpatient BSA / BMI: 1.96 m2 / 34.33 Department Location: [place] [address] Echo Lab Blood Pressure: 128 /73 mmHg Study Type: TRANSTHORACIC ECHO (TTE) COMPLETE Diagnosis/ICD: Bradycardia, unspecified-R00.1 Indication: Abnormal EKG, Pre-EP CPT Codes: Echo Complete w Full Doppler-66764 Study Detail: The following Echo studies were [...] LA Area A2C: 18.9 cm2 LA Major Fancy Gap A4C: 5.8 cm LA Major Fancy Gap A2C: 5.5 cm LA Volume Index: 27.0 [...] 1.3 m/s (0.6-0.9m/s) PV Max P.6 mmHg [id number] Batsheva Morris MD, [facility] Electronically signed on 08/05/2023 at 2:30:14 PM Final [facility] Work Phone: XR CHEST 1 VIEWon 08-05-2023 XR CHEST 1 VIEW Interpreted By: Salvatore Clark, STUDY: XR CHEST 1 VIEW INDICATION: Signs/Symptoms:post implant. COMPARISON: None ACCESSION NUMBER(S): [id number] ORDERING CLINICIAN: ANA M KMUARI FINDINGS: No consolidation, effusion, edema, or pneumothorax. Pacemaker placed without pneumothorax. Position satisfactory. IMPRESSION: Status post pacemaker placement. Signed by: Salvatore Clark 08/05/2023 6:10 PM Dictation workstation: [id number] [facility] Comment on above: Order Comment: Vahe hunt orquidea. XR Chest Single viewon 08-04 Status post pacemaker placement. Signed by: Salvatore Clark 08/05/2023 6:10 PM Dictation workstation: [id number] [facility] MMODAL Interpreted By: Salvatore Clark, STUDY: XR CHEST 1 VIEW INDICATION: Signs/Symptoms:post implant. COMPARISON: None ACCESSION NUMBER(S): [id number] ORDERING CLINICIAN: ANA M KUMARI FINDINGS: No consolidation, effusion, edema, or pneumothorax. Pacemaker placed without pneumothorax. Position satisfactory. [facility] MMODAL Salvatore Clark MD - 08/05/2023 Interpreted By: Salvatore Clark, STUDY: XR CHEST 1 VIEW INDICATION: Signs/Symptoms:post implant. COMPARISON: None ACCESSION NUMBER(S): [id number] ORDERING CLINICIAN: ANA M KUMARI FINDINGS: No consolidation, effusion, edema, or pneumothorax. Pacemaker placed without pneumothorax. Position satisfactory. IMPRESSION: Status post pacemaker placement. Signed by: Salvatore Clark 08/05/2023 6:10 PM Dictation workstation: [id number] [facility] Work Phone: Radiology Study observation (narrative) [facility] Work Phone: XR Chest Single viewOrdered By: Salvatore Clark on 08-05-2023 [facility] Work Phone: ECG 12 lead (Clinic Performe d)on 07-22-2023 EKG shows marked sinus bradycardia rate of 41 bpm QRS ration 100 ms QT corrected he had a 91 ms. Rhythm strip shows the same pattern. [facility] Work Phone: CT LUNG CANCER SCREENINGon [...] by: BATSHEVA ALVARADO Date: 2022-07-15 12:10 Normal [facility] Office Visit (Cardiology)on 07-14-2022 [...] we can help. You may also call [phone] for free resources and assistance.; Status:Complete - [...] ischemic evaluation. He underwent cardiac catheterization in [place] which showed no significant obstructive disease 3. [...] BY MOUTH FOUR TIMES A DAY NEEDED Nunyrv0p at bedtime Singulair 10 MG Oral TabletTAKE [...] Recorded: 14Jul2022 10:57AM Heart Rate34, L Radial Yryneocc704, LUE, Sitting Anzwbgcif46, LUE, Sitting Height5 ft 4 in Jropmd345 lb BMI Wjbvbpjpbb35.96 kg/m2 BSA Calculated1.92 Tobacco Usea) Yes Patient encouraged to st (more content not included)... Normal [employer] Tobacco Screening.on 023 Adult depression screening assessment No [facility] [employer] DO Work Phone: Fall risk assessment a) No falls within the last year [facility] [employer] DO Work Phone: Tobacco use status [facility]PHS a) Yes [facility] [employer] DO Work Phone: Tobacco Screening. Yes [facility] [employer] DO Work Phone: CT ABD/PELV W [...] by: FLEX JACOBS Date: 2022-06-11 10:06 Normal [facility] CBC AUTO DIFFon 05-07-2022 BASO # 0.1 103/ul Normal 0.0-0.1 [facility] Comment on above: Performed By: #### C BC #### [facility] [address] [place], [place] [address] Dr. Britt Mendoza Basophils/100 WBC (Bld) 1.6 % Normal 0.2-2.0 [facility] Comment on above: Performed By: #### C BC #### [facility] [address] [place] [address] Dr. Britt Mendoza EO # 0.2 103/ul Normal 0.0-0.7 [facility] Comment on above: Performed By: #### C BC #### [facility] [address] [place] [address] Dr. Britt Mendoza Eosinophils/100 WBC (Bld) 3.0 % Normal 0.9-7.0 [facility] Comment on above: Performed By: #### C BC #### [facility] [address] [place] [address] Dr. Britt Mendoza Erythrocyte distribution width (RBC) [Ratio] 12.4 % Normal 11.0-15.0 [facility] Comment on above: Performed By: #### C BC #### [facility] [address] [place] [address] Dr. Britt Mendoza Hematocrit (Bld) [Volume fraction] 43.2 % Normal 42.0-54.0 [facility] Comment on above: Performed By: #### C BC #### [facility] [address] [place] [address] Dr. Britt Mendoza Hemoglobin (Bld) [Mass/Vol] 14.7 g/dL Normal 14.0-18.0 [facility] Comment on above: Performed By: #### C BC #### [facility] [address] [place] [address] Dr. Britt Mendoza IG # 0.11 10e3/ul Critically high 0.00-0.03 [facility] Comment on above: Performed By: #### C BC #### [facility] [address] [place] [address] Dr. Britt Mendoza IG % 1.4 % Critically high 0.0-0.5 [facility] Comment on above: Performed By: #### C BC #### [facility] [address] [place] [address] Dr. Britt Mendoza LYMPH # 1.7 103/ul Normal 1.2-3.8 [facility] Comment on above: Performed By: #### C BC #### [facility] Laboratory [address] [place] [address] Dr. Britt Mendoza Lymphocytes/100 WBC (Bld) 21.6 % Normal 20.5-60.0 [facility] Comment on above: Performed By: #### C BC #### [facility] Laboratory [address] [place] [address] Dr. Britt Mendoza MANUAL DIFF REQ NO Normal [facility] Comment on above: Performed By: #### C BC #### [facility] [address] [place] [address] Dr. Britt Mendoza MCH (RBC) [Entitic mass] 31.2 pg Normal 25.9-34.0 [facility] Comment on above: Performed By: #### C BC #### [facility] [address] [place] [address] Dr. Britt Mendoza MCHC (RBC) [Mass/Vol] 34.0 g/dL Normal 29.9-35.2 [facility] Comment on above: Performed By: #### C BC #### [facility] [address] [place] [address] Dr. Britt Mendoza MCV (RBC) [Entitic vol] 91.7 fL Normal 80.0-94.0 [facility] Comment on above: Performed By: #### C BC #### [facility] [address] [place] [address] Dr. Britt Mendoza MONO # 0.5 103/ul Normal 0.3-0.8 [facility] Comment on above: Performed By: #### C BC #### [facility] [address] [place] [address] Dr. Britt Mendoza Monocytes/100 WBC (Bld) 6.8 % Normal 1.7-12.0 [facility] Comment on above: Performed By: #### C BC #### [facility] [address] [place] [address] Dr. Britt Mendoza NEUT # 5.0 103/ul Normal 1.4-6.5 [facility] Comment on above: Performed By: #### C BC #### [facility] [address] [place] [address] Dr. Britt Mendoza Neutrophils/100 WBC (Bld) 65.6 % Normal 43.0-75.0 [facility] Comment on above: Performed By: #### C BC #### [facility] [address] [address] [address] Britt Mendoza Platelet mean volume (Bld) [Entitic vol] 9.7 fL Normal 9.5-13.5 [facility] Comment on above: Performed By: #### C BC #### [facility] [address] [address] [address] Britt Mendoza PLT 244 103/ul Normal 150-450 [facility] Comment on above: Performed By: #### C BC #### [facility] [address] [place] [address] Dr. Britt Mendoza RBC 4.71 106/ul Normal 4.70-6.10 [facility] Comment on above: Performed By: #### C BC #### [facility] [address] [place] [address] Dr. Britt Mendoza WBC 7.6 103/ul Normal 4.0-11.0 [facility] Comment on above: Performed By: #### C BC #### [facility] [address] [place] [address] Dr. Britt Mendoza GLYCOHEMOGLOBIN A1Con 2021 ADA RECOMMENDATION SEE BELOW Normal [facility] Comment on above: Result Comment: ADA RECOMMENDED LIMIT 4.0 - 6.0 ADA THERAPEUTIC TARGET < 7.0 ACTION SUGGESTED > 7.0 Performed By: #### A 1C ####[facility] [address] [address]Dr. Britt Mendoza Glucose [Mass/Vol] 117 mg/dL Normal [facility] Comment on above: Performed By: #### A 1C ####[facility] [address] [id number]. Britt Mendoza HbA1c (Bld) [Mass fraction] 5.7 % Normal 4.5-6.2 [facility] Comment on above: Performed By: #### A 1C ####[facility] [address] [address]DrAtiya Anjalidaniel Reji LIPID PROFILEon 05-07-2022 CHOL-HDL RATIO NORM SEE BELOW Normal [facility] Comment on above: Result Comment: 3.3 - 4.4 LOW RISK 4.4 - 7.1 AVERAGE RISK 7.1 - 11.0 MODERATE RISK >11.0 HIGH RISK Performed By: #### B MP, LIVER, LIPID, TSH ####[facility] [address] [phone]. Anjalidaniel Mendoza Cholesterol [Mass/Vol] 235 mg/dL Critically high <=200 [facility] Comment on above: Performed By: #### B MP, LIVER, LIPID, TSH ####[facility] [address] [id number]. Anjalidaniel Reji Cholesterol in HDL [Mass/Vol] 40 mg/dL Normal 40-60 [facility] Comment on above: Performed By: #### B MP, LIVER, LIPID, TSH ####[facility] [address] [address]Dr. Anjalidaniel Reji Cholesterol in LDL [Mass/Vol] 156.8 mg/dL Normal [facility] Comment on above: Performed By: #### B MP, LIVER, LIPID, TSH ####[facility] [address] [phone]. Britt Reji Cholesterol.total/Viola sterol in HDL [Mass ratio] 5.9 {ratio} Normal [facility] Comment on above: Performed By: #### B MP, LIVER, LIPID, TSH ####[facility] [address] [phone]. Anjalidaniel Mendoza HDL NORMAL > or = 60 mg/dl - LOW CARDIOVASCULAR RISK <40 mg/dl - HIGH CARDIOVASCULAR RISK Normal [facility] Comment on above: Performed By: #### B MP, LIVER, LIPID, TSH ####[facility] [address] [id number]. Anjalidaniel Mendoza LDL CALC NORMAL SEE BELOW Normal [facility] Comment on above: Result Comment: <100 mg/dl OPTIMAL 100 - 129 mg/dl NEAR OR ABOVE OPTIMAL 130 - 159 mg/dl BORDERLINE HIGH 160 - 189 mg/dl HIGH >190 mg/dl VERY HIGH Performed By: #### B MP, LIVER, LIPID, TSH ####[facility] [address] [address]Dr. Anjalidaniel Mendoza Triglyceride [Mass/Vol] 191 mg/dL Critically high <=150 [facility] Comment on above: Performed By: #### B MP, LIVER, LIPID, TSH ####[facility] [address] [address]Dr. Britt Reji VLDL CALC 38.2 mg/dL Normal [facility] Comment on above: Performed By: #### B MP, LIVER, LIPID, TSH ####[facility] [address] [address]Dr. Anjalidaniel Reji LIVER PROFILEon 05-07-2022 Albumin [Mass/Vol] 3.6 g/dL Normal 3.4-5.0 [facility] Comment on above: Performed By: #### B MP, LIVER, LIPID, TSH ####[facility] [address] [address]Dr. Britt Mendoza Albumin/Globulin [Mass ratio] 1.1 {ratio} Normal [facility] Comment on above: Performed By: #### B MP, LIVER, LIPID, TSH ####[facility] [address] [address]Dr. Britt Mendoza ALP [Catalytic activity/Vol] 84 U/L Normal 46-116 [facility] Comment on above: Performed By: #### B MP, LIVER, LIPID, TSH ####[facility] [address] [address]Dr. Britt Mendoza ALT [Catalytic activity/Vol] 34 U/L Normal 16-63 [facility] Comment on above: Performed By: #### B MP, LIVER, LIPID, TSH ####[facility] [address] [address]Dr. Britt Mendoza AST [Catalytic activity/Vol] 21 U/L Normal 15-37 [facility] Comment on above: Performed By: #### B MP, LIVER, LIPID, TSH ####[facility] [address] [address]Dr. Britt Mendoza BILI, CONJUGATED 0.1 mg/dL Normal 0.0-0.2 [facility] Comment on above: Performed By: #### B MP, LIVER, LIPID, TSH ####[facility] [address] [address]Dr. Britt Mendoza Bilirubin [Mass/Vol] 0.4 mg/dL Normal 0.2-1.0 [facility] Comment on above: Performed By: #### B MP, LIVER, LIPID, TSH ####[facility] [address] [address]Dr. Britt Mendoza Globulin (S) [Mass/Vol] 3.4 g/dL Normal [facility] Comment on above: Performed By: #### B MP, LIVER, LIPID, TSH ####[facility] [address] [address]Dr. Britt Mendoza Protein [Mass/Vol] 7.0 g/dL Normal 6.4-8.2 [facility] Comment on above: Performed By: #### B MP, LIVER, LIPID, TSH ####[facility] [address] [address]DrAtiya Mendoza PROF CHEM 8 (BAS METB)on Anion gap [Moles/Vol] 13.8 mmol/L Normal [facility] Comment on above: Result Comment: Prev iously reported as: -2.3 On 05/07/2022 13:50 By DM9 Performed By: #### B MP, LIVER, LIPID, TSH #### [facility] [address] [address] [address] Britt Mendoza Calcium [Mass/Vol] 9.2 mg/dL Normal 8.5-10.1 [facility] Comment on above: Performed By: #### B MP, LIVER, LIPID, TSH #### [facility] [address] [address] [address] Britt Mendoza Chloride [Moles/Vol] 99 mmol/L Normal 98-107 [facility] Comment on above: Result Comment: Prev iously reported as: 106 On 05/07/2022 13:50 By DM9 Performed By: #### B MP, LIVER, LIPID, TSH #### [facility] [address] [place] [address] Dr. Britt Mendoza CO2 [Moles/Vol] 27.3 mmol/L Normal 21.0-32.0 [facility] Comment on above: Result Comment: Prev iously reported as: 29.2 On 05/07/2022 13:50 By DM9 Performed By: #### B MP, LIVER, LIPID, TSH #### [facility] [address] [address] [address] Britt Mendoza Creatinine [Mass/Vol] 1.12 mg/dL Normal 0.70-1.30 [facility] Comment on above: Performed By: #### B MP, LIVER, LIPID, TSH #### [facility] [address] [place] [address] Dr. Britt Mendoza EGFR-AF PUERTO RICAN >60 Normal >=60 [facility] Comment on above: Performed By: #### B MP, LIVER, LIPID, TSH #### [facility] [address] [place] [address] Dr. Britt Mendoza EGFR-NON AF PUERTO RICAN >60 Normal >=60 [facility] Comment on above: Performed By: #### B MP, LIVER, LIPID, TSH #### [facility] [address] [place] [address] Dr. Britt Mendoza Glucose [Mass/Vol] 108 mg/dL Critically high 74-106 [facility] Comment on above: Performed By: #### B MP, LIVER, LIPID, TSH #### [facility] [address] [place] [address] Dr. Britt Mendoza Potassium [Moles/Vol] 4.1 mmol/L Normal 3.5-5.1 [facility] Comment on above: Result Comment: Prev iously reported as: 3.9 On 05/07/2022 13:50 By DM9 Performed By: #### B MP, LIVER, LIPID, TSH #### [facility] [address] [place] [address] Dr. Britt Mendoza Sodium [Moles/Vol] 136 mmol/L Normal 136-145 [facility] Comment on above: Result Comment: Prev iously reported as: 129 On 05/07/2022 13:50 By DM9 Performed By: #### B MP, LIVER, LIPID, TSH #### [facility] [address] [address] [address] Britt Mendoza Urea nitrogen [Mass/Vol] 26.0 mg/dL Critically high 7.0-18.0 [facility] Comment on above: Performed By: #### B MP, LIVER, LIPID, TSH #### [facility] [address] [address] [address] Britt Mendoza Urea nitrogen/Creatinine [Mass ratio] 23.2 mg/mg Normal [facility] Comment on above: Performed By: #### B MP, LIVER, LIPID, TSH #### [facility] [address] [address] [address] Britt Mendoza TSHon 05-07-2022 TSH 0.828 uIU/mL Normal 0.358-3.740 [facility] Comment on above: Performed By: #### B MP, LIVER, LIPID, TSH ####[facility] [address] [address]Dr. Britt Mendoza VITAMIN D 25 OHon 05-07-2022 VIT D 25-OH 45.6 ng/mL Normal [facility] Comment on above: Performed By: #### V BRENDAN, PSASC #### [facility] [address] [address] [address] Britt Mendoza VIT D RANGES SEE BELOW Normal [facility] Comment on above: Result Comment: <20 ng/mL Vit D deficient 20 - <30 ng/mL Vit D insufficient 30 - 100 ng/mL Vit D sufficient >100 ng/mL Potential Toxicity Performed By: #### V BRENDAN, PSASC #### [facility] [address] [address] [address] Britt Mendoza [facility]on SARS-CoV-2 (COVID-19) RNA KATT+probe Ql (Unsp spec) Detected Critically abnormal NOT DETECTED [facility] Comment on above: Result Comment: This test is not yet approved or cleared by the [place] FDA. When there are no FDA-approved or cleared tests available, and other criteria are met, FDA can make tests available under an emergency access mechanism called an Emergency Use Authorization (EUA). The EUA for this test is supported by the [place] of Health and Human Service's declaration that [...] longer be used). Performed By: #### [facility] ####[facility] [address] [address]Dr. Britt Mendoza Cardiac Stress Test 2021 Cardiac Stress Test [address], [address] [place] [address] Exercise Stress Test Patient Name: LILIANA MICHAELS Ordering Physician: [id number] Ty MD Study Date: 02/15/2022 Reading Physician: Melanie Ty MD MRN/PID: [id number] Supervising Physician: [id number] Yovani Rivera MD Accession/Order#: [id number] Referring Physician: VALENTINO TY Date of : 1965 PCP: Ishmael Simon Gender: M Fellow: Height: 162.56 cm Nurse: Yunior Bhatti RN Weight: 81.65 kg Software Sales Manager: SAEID BSA: 1.87 m2 Technologist: BMI: 30.90 kg/m2 Additional Staff: Age: 56 years cc report to: Patient Location: cc report to: [id number] Ty MD Study Type: Cardiac Stress Test Diagnosis/ICD: R94.31-Abnormal electrocardiogram [ECG] [EKG]; R00.1-Bradycardia, unspecified; R06.00-Dyspnea, unspecified Indication: Dyspnea Procedure/CPT: Stress Test Interpretation-[id number] ; Stress Test Supervision-[id number] Falls Risk: Low: Patient has low risk [...] 7. An element of chronotropic incompetency noted. [id number] Valentino Ty MD Electronically signed on 02/16/2022 at 2:52:20 PM Final Normal [facility] Cardiac Stress Test Please click on the link to view the study images [facility] Work Phone: Cardiac Stress Test [facility] 250 DO Work Phone: Office [...] Status:Hold For - Scheduling,Retrospec tive Authorization; Requested for:[id number]; Class 1 obesity with body mass index (BMI) of 30.0 to 30.9 in adult Healthy Weight Tips; Status:Complete - Retrospective Authorization; Done: [id number] Some eating tips that can help you lose weight.; Status:Complete - Retrospective Authorization; Done: [id number] Sinus bradycardia You need to stop smoking. Though it is not easy, more than half of all adult smokers have quit. We encourage you to write down all the reasons you should quit smoking and set a quit date for yourself. Ask us how we can help. You may also call 1-843-BRVWMagellan Bioscience GroupNOW for free resources and assistance.; Status:Complete - Retrospective Authorization; Done: [id number] SocHx: Current smoker Continue with our present treatment plan.; Status:Complete - Retrospective Authorization; Done: [id number] Tobacco Use Screening; Status:Complete; Done: [id number] Patient Instructions Please bring all medicines, vitamins, [...] This led to a cardiac evaluation in [place] and its not clear to me whether [...] Oral Capsule Delayed ReleaseTAKE 1 CAPSULE Daily Jwhvfx1w at bedtime Sin (more content not included)... Normal [employer] Tobacco Screening.on 022 Adult depression screening assessment No [facility] [address] 600 DO Work Phone: Fall risk assessment a) No falls within the last year [facility] 600 DO Work Phone: Tobacco use status CP a) Yes M [facility] 600 DO Work Phone: Tobacco Screening. Yes [facility] 600 DO Work Phone: Covid-19 PCR (CVD[facility])on SARS-CoV-2 (COVID-19) RNA KATT+probe Ql (Unsp spec) Not detected Normal NOT DETECTED [facility] Comment on above: Result Comment: This test is not yet approved or cleared by the [place] FDA. When there are no FDA-approved or cleared tests available, and other criteria are met, FDA can make tests available under an emergency access mechanism called an Emergency Use Authorization (EUA). The EUA for this test is supported by the Neuropathologist of Health and Human Service's (HHS's) declaration [...] consistent with SARS-CoV-2. Performed By: #### [facility] #### [facility] [address] [place] [address] Dr. Britt Mendoza Covid-19 PCR (CVDTB)on 11-07 SARS-CoV-2 (COVID-19) RNA KATT+probe Ql (Unsp spec) Not detected Normal NOT DETECTED [facility] Comment on above: Result Comment: This test is not yet approved or cleared by the [place] FDA. When there are no FDA-approved or cleared tests available, and other criteria are met, FDA can make tests available under an emergency access mechanism called an Emergency Use Authorization (EUA). The EUA for this test is supported by the [place] of Health and Human Service's (HHS's) declaration [...] consistent with SARS-CoV-2. Performed By: #### [facility] ####[facility] [address] [place], [place] [address]Iw. Britt Mendoza XR CHEST 2 Von 10-01-2021 [...] by: FLEX JACOBS Date: 2021-10-01 09:30 Normal [facility] Ambulatory Clinical Summaryo n 03-05-2021 Ambulatory Clinical Summary {[id number]}CD:[id number] Normal [facility] Historical Records Officeon 03-05-2021 Historical Records Office [id number] #1.00CD:127 Normal [facility] Patient Educationon 03-05-20 21 Patient Education [...] these instructions at home: Medicines ? Take tjnf-qcf-jnfwmfa and prescription medicines only as told by [...] of your (more content not included)... Normal [facility] Urology Office/Clinic Noteon 03-05-2021 Urology Office/Clinic [...] order. Ordered: Office Visit Level 4 Est 46912 2. Hypogonadism male (E29.1: Testicular hypofunction) noted [...] time. Ordered: Office Visit Level 4 Est 60277 3. BPH with urinary obstruction (N40.1: Benign prostatic hyperplasia with lower urinary tract symptoms) s/p Urolift September 2018. Pt is currently taking no bladder/prostate medication and is mostly satisfied with overall symptom control. has nocturia but attributes this to diuretics. Pt prefers to continue with no changes at this time. PCP checking PSAs per pt. Ordered: Office Visit Level 4 Est 61136 Orders: Urnls Dip Stick Auto w/o Microscopy POC 10467 offered f/u 1 yr but pt prefers PRN. 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 Follow-up With When Contact Information ITA SLOAN, SIMONE Priest [address] [place] [address]- Additional Instructions: Patient Education Erectile Dysfunction Problem [...] inhalation powde (more content not included)... Normal [facility] Comment on above: Result Comment: Elec tronically Signed By: TOMEKA SANCHEZ PA-C\.br\Date and Time Signed: 03/05/21 12:24 EDT MRI PELVIS WO CONTRASTon MRI PELVIS WO CONTRAST [facility] Department of Radiology [address] [place] [id number] Patient Name: LILIANA MICHAELS : 1965 Sex: M Age: Race: White Pt. Location: 18 Patient Status: Ordered Date: 09/10/2020 3:35:00 PM Completed Date: 10/03/2020 08:34 AM Requesting Provider: SIMONE RUIZ Attending Provider: Report Copy To: Signs & Symptoms: R10.2 Pelvic and perineal pain I10 History: [place], Right FOREIGN per clinic will fax SS aurelia auth# [id number] 09/16/20-10/17/20 cpt code 66523 *mla Comments: Right groin to r/o an [...] spine. Electronically signed: Dinh Miller. Transcribed by: [email or web address], User Resident: Electronically Signed by: DINH MILLER @ 10/03/2020 09:57 AM Normal [facility] Comment on above: Order Comment: Right groin to r/o an adductor tear; iliopsoas bursitis or injury Operative Reporton Operative Report MR#: [id number] [facility] Pt. Name: Liliana Michaels Room #: PMC [...] Ruiz MD Date Trans: 09/10/2020 11:40 P/mmo DN_JN:[id number] cc: Ishmael Simon M.D. [facility] [address] [facility] Coding Summary.on 09-01-2020 Coding Summary. CD:[id number]:[id number] Gh0bWw+PGhlYWQ+PE1FV EVpJ20gzXNbmZ7OI3nZC H2UXRTJUTIBYA3IAQ6pa UM6NHmyD3BurjDk ZfsfcTJiYL59CQl2MQY7 uPhdDSsrzR0wvHVmS7z8 HtSfVI64bF59MQugDQSr DgO8IoGwirmrwLZd L7knWsWtcHQkQgh+PHRh YmxlIHdpZHRoPScxMDAl JlHssCduKE7tXj9pBNYt LWNvbGxhcHNlOiBj u5vlBXKsYKoeTW1etXix S8UodSE3CWEdl4n0Bh72 dHI+CNGcNRS5cCwqZLtc a946OfYdx8jjKEH5 rZSsAZdwEEJ0S36ut4H5 JEDnGKMsJGY4oAN8bC9d qEdyafmlG3LpyHVoCmF1 QXX9yTTrlE8jvMtz hfnxyQ0kCmg+F66CUR3P SWICJG0WMws7O4ViAjqt dHI+UI51XPRgNK63aNIl kVWbm8uxyEn1RgNs POVeQPI7dRpdAHgja3Qn LCAwF61oyZLxp7Y4OVHm gRvpyQXdEbYfgUI0xU3t ZTcnluvjp6wviuqs Bpvfs6jfzf29aO15K57r GQthUWPfNYC9DPYtJJLm cKabqi9lzQ8cCy5+IDxj c5crh0nmqUe9SxAx RQKmvgYwzAbxGZC8n8Sz Ey36G3ElxPqsp8TnGuj4 cq30uKSvf6M6aWS6LWyo MYTzsN4hTOwqGwM6 QQMgXwJfxZ89nZVxUDrc Yh9utSuodXhpYO5qNUFw gjwiTIVfdF8kCAWqmJWp pMpzNG9sAPTpusbf i679WkEwGSB8MSPdxAMp P1UgaQ1fOcHzRIJwAXSs J9SnfNRcHUodG659QDok NrJ2PXHwdbSsE3Uy DLXfzVzkEbP5h6E7Bg3G w1NeaukhAQF9RZalSWE5 DkG0JjRtTfS2O8LdPwz5 KCJsoMwuDC0gA7Oe QMEtsxzkjkcrzHE9YLAg EIBlnW81cUMxTZtnUb3b i0N0a249DOTxLLMewN62 At9dwTtqTCLibTWY wL1xslrmj1yvqwhuMiUw ZGQgNXz8LLw1HRUkgIhm MhOwJZB8KbK4LAA5eTQl sD3hpMeacfvxtV7f Oyc+U83rbZ4cCHM0DAC5 fbiyGSAxgaOtKN43EA25 K1KsHyeuxDCkaFV+PGRp dsRrbLleYW8fRdMp r1zxs7ZjPRmjU3KiXHZm BCfhHjj2MAIhAWP2aLP9 lD3zOHFvGLmhf0P8yJJ0 F2GqerFdrq3kt6bl AGOwIFknF09pyGAio7S6 WNXbyDM7YGNqgHzbJcLn kJ38Izu+GUUytHmrx7Km Xsezq9blt7dscQd2 IjMwJSIgdmFsaWduPSJ0 v1ZuFy14F01sHDeoGMHl LVLbFQUjVHCsjOadhv1p bM9fKt2+PGNvbCB3 gDD1rC9wBWLeXrG2SJlu J248GmPbbEYlOjktx9ia a4lesIv1NqOkEDAtoyPf tNuxTUN9m5ZwRp90 F96eJFcdAMZqOMWnGJIu GGIzaMzmbo8edA6cLl7+ UP9ua3gkgz67kD31wEW+ PWHqLJX9aEjbJJdl YFDxbY1hZLtjTxL1NCPm VqJigB05wVUqGWckFi8x zQckpMegBF8kBRKuwsbd w148IaOyr1tjIHWm uXNrQBvsBRZ8P61mi7T3 OQLtKUVhRHJ1uSI7fB1r bGlnbjogbGVmdDsgdmVy pZmvYXrzNIzvN566 IHRvcDsnPlBhdGllbnQg MfIfBCd0T9UaKdo0EDOk mKobFC9rfJXqRSnuWj7b kGtikHbzRA4cXCIp ebvev318KsNbp8dvMYOp hHLpHOahVHM4A67bj8W7 WFVbWYHcWYR1oBH6qS2t bGlnbjogbGVmdDsg viIglXwoJIdfWVviM657 IHRvcDsnPkJpcnRoIERh pJG9LL62BK47cQKxu2L5 dGB2A7UkKPQpjsdn wveskXW0ELOwAJHzwX50 Xr9rkOwqPt5hEGLvRPX7 AYFmfHGeR0GnnW4pRdMg SELbVCJdK8HphIZx XZioT430EQjaBfC9KUTr owIiX3CyWFHxcEgpHjJ7 j9K3Uo9XF8T9VZ98NZ67 rYYgr1O2yHV9F9Ex FGHqzqnoyewcvTA7AYDz IHMieH00Fz8ulBxcSp4s KLDjRCN0WNHmmEHvG5Ut iJ8bFsOsENWiEIPz P2VmcVLuNSfzH934DOxx BwO0DZOqvxOtH1BuUQTx sJhkYqW3d5Y5Lx7RVYk4 NZ40GO07aOVfc5C9 bNM9C6HgTPJtjyirebpr wUH5HFDkWOKxeO34Po8d iDmyXf3qOOFeVMW8PTZh yXGeU6PzkY4aXkQu WWPnZFBoH3TjnHRrRZev N226CKxkAyS0BFKpouLh R8HbCASdgPlwCgP1p7D3 Jk0NLHYuOU91YTL3 zJO2MO80NA97H9XgKsgc dGFibGU+PHRhYmxlIHdp ZHRoPScxMDAlJyBzdHls AB9kRe3dEBVnCPIo eTedwMCtFqOdr0olVOSs NBkgKC1dyTrjN2LryZZ5 GUEro6a9Ri83P53rY6We dXA+KWMjqWB1kIF0 jF0lMjElTxL7FUdwW801 EuLjrAJhCdphv1xiw4nj zEy6MkJ9LTFkbgKvtVmv POS4h3QqHc98N13w IHdpZHRoPSIxNSUiIHZh iXyqha6gxM2fIp7+PGNv cZZ6aLL4dW1cAfZoAzQ6 FDuqL870WeAbgOQi Qlmqe7qlc8unxAk6GkRd EELsfyKhbAmdNNK1j4Yq Ee77X4EloLtqw8ZmAjk0 ys16oQOdv7Q1fRL5 E7LeIJTgvswkuXWmeZqh MB6vOWSumvgeUCZluV8t VVVlN1m8SiKjRyX2TAor E5MuqgE2QQNbaTEy XSvyQOL1B13ri4R7ZTId VUEeARX3xGS2pU9xqUeq bjogbGVmdDsgdmVydGlj GKxcCYyzS171MPRd gVicPIOdpT3lLORksMWt jPssRS6mFNXusiheLqeR JR0YLjgkEmWZIDbnANme dGQ+NSMgMAP8dSri WNcbIILhjI3rCWUiB1d1 WlHbSnY6BIeiQ3UjSVEv rphdOg51jS8zNaDoQbB3 FRzuN0LkjhX8ULFx iXRpKSaoHQX8L97zl0J3 CWWoBBMjPYT9oBJ4cT3l bGlnbjogbGVmdDsgdmVy kUanFBnfSVjrR442 XHSsbKkmCfGdQcP8PhW4 RvW1O5ZsPvy4ZWAfsXxe ZJ2ypEIxFNzeAr4ztPit lZwlIG1uOEYnqntn KQDcaT6nRJWwqFAtlCwv GL9tGMWsbrpkl281EgTu SJN3XUStoXNbY8RdeA6j FiLcAVQwKLGaM6Bq oLIwINtfD726IEbiIpB8 QZGmezNoA6CjIVZlfFvq TkM2z2U5Vj69DcBISCZp czwvdGQ+PHRkIHN0 mUodVUcgXQXqyS5yTEVc Y8d1DzJtFvC1LLmmW7Gl GZCfhbarQv66eR4xHiOg GwV2DQnjG0OxamG9 AUUeiJUxVLgsLFN3K55x w3V5UHLuMMEiFXH7zYR3 hN5zsOkunzmxpBMdeOjf dmVydGljYWwtYWxp H479FJUqkKciMg5tkOV0 S1OpLmr2RIIwzCvrWO3m aUCfXBvrBe7kcVgmcFie VB1sTWDulynhEIFd yB8gLUFdiVNusJfgOE3i TKIgrgirc031ArWrFPX6 BILljPSlP0NwdV7yWjNs WZFwHJZcH5IjsGQq BXmlF844NSngMfG5JMFd mxJrW5BsJZVacCkeGiO2 e3V9Qb3AwCSuQ6MlB2x8 B3AkYiudkKR+PC90 XTHcPD70yBVkmLOwh3jw bRw1TuWtSHGqZXM1zXiw BGugl3WxNCQiW16cgJVo e7H4MOZzxOqzxHYm SoQqhTX2qH1yEVdjirxv l3ljsewbCuywg1yjvz82 gU97F93uWMksEQXuTFEm HUUlUCLsgAsxmj5r yE5mLe0+VQUbiIL4dKW4 nD0mAsOuVlY2FIntT911 FlTznYDsPelos0cnr5cd bOa1SdPyFTHgnjOx oVriNBG5k5BgCp11C22b IHdpZHRoPSIyMCUiIHZh sOuuto9rgQ1rPs3+PC9j j4fkra73sS22aLW+ FAPeYPC6uWzoAEqmZCWp yY6wTUxcQgR7EMOdOrKm mX15eZFmICqfSk6ghVcj iPznMS0rIGFlbpin x676NmMfu7bsUDRqvFKx VOhoEVI9N47rp1O6KTHo CLHhQQQ2jPW3nH9wjHyy bjogbGVmdDsgdmVy bJtkVUkpVXlfZ162JBGv vRgmGaDwxDEaD1kdnlNT TK3wDkspfZC+PHRkIHN0 rRbwKHjcFHWurF1s GTKfM4k9RnNdPcT6FUtj I3KfmqE4WJAenEWzCHKw nAKQrH3sfnsep8xlacng CnVzFBMrFOa3XTf9 PLFpwDxpCwHqOZV7TwW7 KPB1kIMqsB6opPdwoghm uG7zHip+RklOOjwvdGQ+ KQGwAWJ7mXgoGJqz ROIspS6qEKUkS0z1JnHv RcO9PLzeJ4XqcgK1ATSa uYFkBXFnkSERoR3wjbfq e3gqcrrtTdThVKXf WGw6KLt0PFBppRyoBpSs IHJ3MkG3RMH9gXIzhU6f uPuuxzdcnT3oTwh+TVJO OjwvdGQ+PHRkIHN0 cPwhRGbdOOFsqR9ePSAy H2g1UyBcWyZ1EJooF6Lm vhE8NSXnkMZbUCJnxAKW iR8cjuepx5pzcoyo ZbIaFJJlZAj4KBk7UJYc fDubAdBmTWS2FsQ8TSA4 bUVltA6usVjqyppyiL1o Oyc+TNH5KID0IW35 DI51O4UgXncrnMCcpDX+ PHRhYmxlIHdpZHRoPScx ENApAcPpfNpgVY2yLh6a ZGVyLWNvbGxhcHNl OiBj (more content not included)... Normal [facility] Auto Diffon 08-24-2020 Basophils/100 WBC (Bld) 1.0 % Normal 0.0-2.0 [facility] Comment on above: Order Comment: Order Added by Discern Expert. Performed By: #### 1 5545796, 9784553, 7741733, 36758547, 2441005, 1877145, 23013755, 92560455 ####[facility] [address] [place] [address] Basophils/Leukocytes Auto (Bld) [Pure # fraction] 0.1 E9/L Normal 0.0-0.2 [facility] Comment on above: Order Comment: Order Added by Discern Expert. Performed By: #### 1 2620032, 3077040, 3597572, 89067446, 7440365, 3414558, 36464979, 77112599 ####[facility] [address] [place] [address] Eosinophils/100 WBC (Bld) 2.5 % Normal 0.0-8.0 [facility] Comment on above: Order Comment: Order Added by Discern Expert. Performed By: #### 1 3354866, 9159670, 3675160, 46415475, 1773718, 9307580, 32140996, 58556368 ####[facility] [address] [place] [address] Eosinophils/Leukocytes Auto (Bld) [Pure # fraction] 0.3 E9/L Normal 0.0-0.5 [facility] Comment on above: Order Comment: Order Added by Discern Expert. Performed By: #### 1 4213946, 6819628, 9975266, 76296518, 7141235, 5632156, 55418671, 91854066 ####[address] [place] [address] Lymphocytes/100 WBC (Bld) 21.0 % Normal 14.0-50.0 [facility] Comment on above: Order Comment: Order Added by Discern Expert. Performed By: #### 1 6815810, 2201860, 4170581, 35815439, 6168025, 7834568, 40965570, 17801743 ####[address] [address] Lymphocytes/Leukocytes Auto (Bld) [Pure # fraction] 2.1 E9/L Normal 1.0-4.0 [facility] Comment on above: Order Comment: Order Added by Discern Expert. Performed By: #### 1 3529986, 1771403, 4308949, 94334096, 0099631, 3479891, 22828252, 44500017 ####[address] [place] [address] Monocytes/100 WBC (Bld) 6.2 % Normal 4.0-14.0 [facility] Comment on above: Order Comment: Order Added by Discern Expert. Performed By: #### 1 9970381, 6195492, 8954126, 89580749, 1563541, 6431242, 82786457, 38137023 ####[address] [place] [address] Monocytes/Leukocytes Auto (Bld) [Pure # fraction] 0.6 E9/L Normal 0.2-1.0 [facility] Comment on above: Order Comment: Order Added by Discern Expert. Performed By: #### 1 6139705, 2427982, 0193910, 22703996, 4925888, 1194228, 03523888, 22185306 ####[facility] [address] [place] [address] Neutrophils/100 WBC (Bld) 69.3 % Normal 36.0-75.0 [facility] Comment on above: Order Comment: Order Added by Discern Expert. Performed By: #### 1 3608018, 0919492, 0637566, 23364744, 0755801, 7690553, 20080180, 81946293 ####[facility] [address] [place] [address] Neutrophils/Leukocytes Auto (Bld) [Pure # fraction] 6.9 E9/L Normal 2.0-7.5 [facility] Comment on above: Order Comment: Order Added by Crystal Expert. Performed By: #### 1 1092746, 8612978, 7963127, 68916130, 3858979, 8395630, 48122563, 62382961 ####[facility] [address] [place] [address] BMP 08-24-2020 Creatinine [Mass/Vol] 1.1 mg/dL Normal 0.5-1.3 [facility] Comment on above: Performed By: #### 1 9296529, 5437396, 8723550, 21425121, 6447264, 5151888, 38984676, 41509929 ####[facility] [address] [place] [address] Urea nitrogen [Mass/Vol] 19 mg/dL Normal 5-21 [facility] Comment on above: Performed By: #### 1 0013567, 5791285, 5285412, 73480833, 1096091, 5447698, 84164580, 75137093 ####[facility] [address] [place] [address] Urea nitrogen/Creatinine [Mass ratio] 17 No Units Normal 10-20 [facility] Comment on above: Performed By: #### 1 9462111, 0776348, 6386332, 20388659, 1395736, 5284197, 76573827, 30381176 ####[facility] [address] [place] [address] Anion gap [Moles/Vol] 14 mmol/L Normal 6-16 [facility] Comment on above: Performed By: #### 1 5581383, 0721074, 8935768, 31453724, 8020267, 8935317, 32419614, 60267920 ####[facility] [address] [place] [address] Calcium [Mass/Vol] 9.4 mg/dL Normal 8.9-11.1 [facility] Comment on above: Performed By: #### 1 6378882, 6468565, 6745359, 20925993, 3685766, 5479237, 79637976, 38034487 ####[facility] [address] [place] [address] Chloride [Moles/Vol] 94 mmol/L Low 101-111 [facility] Comment on above: Performed By: #### 1 4632094, 8865300, 1670562, 38857826, 6900062, 1109923, 08844300, 30367699 ####[facility] [address] [place] [address] CO2 [Moles/Vol] 29 mmol/L Normal 21-31 [facility] Comment on above: Performed By: #### 1 6200396, 2746526, 3952614, 44725428, 8896594, 6960897, 88453841, 80942713 ####[facility] [address] [place] [address] Glucose [Mass/Vol] 103 mg/dL Normal 55-199 [facility] Comment on above: Result Comment: If t his glucose result represents a fasting glucose, interpretation should refer to the following reference range: 55-99 mg/dL Performed By: #### 1 3122225, 7081471, 2590349, 77331953, 4071618, 5052487, 23914792, 98954991 ####[facility] [address] [place] [address] Potassium [Moles/Vol] 4.0 mmol/L Normal 3.5-5.3 [facility] Comment on above: Performed By: #### 1 4364039, 1467116, 2675777, 98077434, 8047906, 9081682, 49377234, 49792282 ####[facility] [address] [place] [address] Sodium [Moles/Vol] 133 mmol/L Low 135-145 [facility] Comment on above: Performed By: #### 1 9184070, 2091292, 4079710, 25426933, 3534799, 3844250, 29322174, 88672117 ####[address] [place] [address] BNPon 08-24-2020 Natriuretic peptide B (Bld) [Mass/Vol] 17 pg/mL Normal 5-80 [facility] Comment on above: Performed By: #### 1 7823885, 1122675, 4931137, 59565204, 5053445, 3565385, 21263896, 95920276 ####[address] [place] [address] CBC w/ Auto Diffon Erythrocyte distribution width (RBC) [Ratio] 12.9 % Normal 10.9-14.2 [facility] Comment on above: Performed By: #### 1 7449001, 7828494, 8181859, 10424078, 2593904, 2055741, 25823795, 46943726 ####[address] [place] [address] Hematocrit (Bld) [Volume fraction] 44.4 % Normal 37.7-49.0 [facility] Comment on above: Performed By: #### 1 5596264, 5580825, 2734935, 94464152, 0309556, 5357533, 26289244, 95874410 ####[facility] [address] [place] [address] Hemoglobin (Bld) [Mass/Vol] 15.3 g/dL Normal 13.5-17.5 [facility] Comment on above: Performed By: #### 1 1596756, 8957687, 3278926, 84446245, 8207871, 3701506, 75662061, 42303552 ####[address] [place] [address] MCH (RBC) [Entitic mass] 31.5 pg Normal 27.0-34.0 [facility] Comment on above: Performed By: #### 1 1404366, 5363526, 8683155, 11639854, 3563628, 1592557, 85621814, 40553377 ####[address] [address] MCHC (RBC) [Mass/Vol] 34.4 g/dL Normal 31.4-36.0 [facility] Comment on above: Performed By: #### 1 5616572, 7218172, 7072675, 84148181, 6411765, 6993986, 08000963, 07357849 ####[address] [place] [address] MCV (RBC) [Entitic vol] 91.6 fL Normal 80.0-100.0 F [facility] Comment on above: Performed By: #### 1 9363236, 2795295, 7231282, 17625118, 4371728, 7890900, 39367850, 57997747 ####[address] [place] [address] Platelet mean volume (Bld) [Entitic vol] 8.4 fL Normal 6.4-10.8 [facility] Comment on above: Performed By: #### 1 6031454, 7811400, 8742167, 87571536, 9982787, 8216817, 81361191, 94395383 ####[address] [address] Platelets (Bld) [#/Vol] 289.0 E9/L Normal 150.0-500.0 [facility] Comment on above: Performed By: #### 1 0174840, 0471488, 1625786, 39335720, 0722534, 6402948, 37613498, 59976255 ####[facility] [address] [place] [address] RBC (Bld) [#/Vol] 4.8 E12/L Normal 4.3-5.9 [facility] Comment on above: Performed By: #### 1 6218264, 6625423, 6089458, 07255924, 2281156, 9249049, 42175331, 46154387 ####[facility] [address] [place] [address] WBC corrected for nucl RBC Auto (Bld) [#/Vol] 9.9 E9/L Normal 4.0-11.0 [facility] Comment on above: Performed By: #### 1 3394421, 0161792, 3049364, 71907225, 7311567, 3711035, 29375926, 73131345 ####[facility] [address] [place] [address] CTA Cheston 08-24-2020 CTA Chest Exam Date/Time: [...] 370 Contrast amount in ml's: 78 Normal [facility] Consent for Treatmenton 08-07 Consent for Treatment [id number] #1.00CD:127 Normal [facility] D-Dimeron 08-24-2020 Fibrin D-dimer FEU (PPP) [Mass/Vol] 845 ng/mL Abnormal 215-500 [facility] Comment on above: Result Comment: Resu lts [...] infections Liver cirrhosis Performed By: #### 1 8356648, 0356167, 8706236, 71120652, 1027412, 4503024, 75884545, 44110008 ####[facility] [address] [place] [address] Discharge Instructionson Discharge Instructions [id number] #1.00CD:127 Normal [facility] ED Clinical Summaryon 2020 ED Clinical Summary [address] [address] ED Clinical Summary Person Information Name: LILIANA MICHAELS [place] Age: 55 Years : 1965 Sex: Male Language: Bulgarian PCP: SIMONE JEAN BAPTISTE [place] Marital Status: Single Phone: [phone] Visit Id: Visit Reason: Rib/trunk pain-swelling; SIDE [...] 08/24/2020 03:27:58 08/24/2020 03:27:58 08/24/2020 03:27:58 ADDRESS: [address] [place] [phone] PHYS DOC NOTES: MEDICAL INFORMATION: Prescriptions Given: New Medications [id number], [address], [place] [id number], [phone] azithromycin (Zithromax TRI-AMIRA 500 mg oral tablet) [...] With: Address: When: SIMONE JEAN BAPTISTE [address] [place] [id number] Business (1) In 1 day 08/25/2020 Comments: Patient is advised to follow-up with his primary care physician in 1 to 2 days. He is also advised to come back to the emergency department if symptoms get worse. DIAGNOSIS: 1:Rib pain on left side Normal [facility] ED Note-Physicianon 08-25-19 ED Note-Physician Basic Information [...] 08/24/20 2:30:00 EDT [place]igen [place] Orders: albuterol-ipratropiu m, 3 mL, Soln-Inh, Inhalation, Once, Stop date 08/24/20 0:16:00 EDT, STAT, Start date 08/24/20 0:16:00 EDT azithromycin, 500 mg = 1 tab(s), Oral, Daily, # 3 tab(s), Refills(s) 0, Pharmacy: [id number], 163, cm, 08/24/20 0:04:00 EDT, Height/Length Dosing, 101, kg, 08/24/20 0:04:00 EDT, Weight Dosing famotidine, 20 mg = 1 tab(s), Tab, Oral, Once, Stop date 04/18/21 0:17:00 EDT, STAT, Start date 08/24/20 0:17:00 EDT lidocaine topical, 1 patch(es), Topical, Daily, 7 patch(es), Refill(s) 0, apply 12 hours on and 12 hours off daily, [facility], 163, cm, 08/24/20 0:04:00 EDT, Height/Length Dosing, 101, kg, 08/24/20 0:04:00 EDT, Julian (more content not included)... Normal [facility] Comment on above: Result Comment: Elec tronically [...] Document Reviewed: 11/28/2008 ExitCare? Patient Information ?2015 [employer]. This information is not intended to replace advice given to you by your health care provider. Make sure you discuss any questions you have with your health care provider. Normal [facility] ED Patient Summaryon 021 ED Patient Summary [address] [address] Patient Discharge Instructions Person Information Name: LILIANA MICHAELS Age: 55 Years Arrival Date: 08/23/2020 23:48:11 Discharge Diagnosis: 1:Rib pain on left side Primary Care Physician: SIMONE JEAN BAPTISTE DC Provider Information Primary Provider: Pia LANE, David Advanced Silk Worker:None The exam and treatment you received in the Emergency Department were for an urgent problem and are not intended as complete care. It is important that you follow up with a doctor, nurse practitioner, or physician?s res habilitation assistant for ongoing care. If your symptoms [...] Address: When: SIMONE JEAN BAPTISTE [address] [place] [address] Business (1) In 1 day 08/25/2020 Comments: [...] opioids can be used to help relieve wskumlyb-bs-alyihu pain and are often prescribed following a [...] be struggling (more content not included)... Normal [facility] PT & PTTon 08-24-2020 aPTT Coag (PPP) [Time] 30.2 second(s) Normal 25.1-36.5 [facility] Comment on above: Result Comment: Hepa rin therapeutic range (represented by Anti-Factor Xa activity of 0.2 - 0.4 U/mL) corresponds to PTT of 56.6 - 109.0 sec. Performed By: #### 1 8785781, 4539771, 6229802, 08940115, 9961166, 9568938, 12303988, 40473648 ####[facility] [address] [place] [address] INR Coag (PPP) [Relative time] 1.0 {INR} Invalid Interpretation Code [facility] Comment on above: Result Comment: INR results are specifically intended to assess patients stabilized on long-term Anticoagulation therapy suggested INR?s ?Less Intensive Anticoagulation? 2.0 ? 3.0 Conventional Range 3.0 ? 4.5 Performed By: #### 1 7532589, 1526151, 0087712, 02368328, 6966847, 6610111, 05822929, 62980499 ####[facility] [address] [place] [address] PT Coag (PPP) [Time] 11.6 second(s) Normal 10.2-12.9 [facility] Comment on above: Performed By: #### 1 4953415, 0426309, 4240984, 45508600, 1588410, 1423917, 35592276, 43020231 ####[facility] [address] [place] [address] RAD - Preliminary Cat Scan R eporton 08-24-2020 RAD - Preliminary Cat Scan Report [id number] #1.00CD:127 Normal [facility] Rapid COVID Antigen ([facility])on 08-24-2020 Rapid COV Int NEG Ctl Pass Normal Fis her [facility] Comment on above: Performed By: #### 2 [id number] ####[facility] [address] [place] [address] Rapid COV Int POS Ctl [place] Normal Fis her [facility] Comment on above: Performed By: #### 2 315606473 ####[address] [place] [address] SARS-CoV-2 (COVID-19) RNA KATT+probe Ql (Unsp spec) Not detected Normal Not Detected [facility] Comment on above: Result Comment: The [employer]ost[employer]? System for Rapid Detection of SARS-CoV-2 is [...] or revoked sooner. Performed By: #### 2 [id number] ####[address] [place] [address] Employed in Healthcare NO Normal [facility] Comment on above: Performed By: #### 2 [id number] ####[address] [place] [address] First Test Unknown [facility] Comment on above: Performed By: #### 2 [id number] ####[address] [place] [address] Hospitalized? NO Normal [facility] Comment on above: Performed By: #### 2 [id number] ####[address] [place] [address] [facility] Comment on above: Performed By: #### 2 378571556 ####[address] [place] [address] ? NO Normal [facility] Comment on above: Performed By: #### 2 787653227 ####[address] [place] [address] Resides in a Congregate Care Setting NO Normal [facility] Comment on above: Performed By: #### 2 493502524 ####[address] [place] [address] Symptomatic as defined by [facility] YES [facility] Comment on above: Performed By: #### 2 459786032 ####[address] [place] [address] Troponin 0 Hr.on 08-24-2020 Troponin I.cardiac [Mass/Vol] 4.10 pg/mL Low 15.90-38.40 [facility] Comment on above: Result Comment: The 95% CI (Confidence Interval) PPV (Positive Predictive Value) for myocardial infarction in females is 38 pg/mL, in males 51 pg/mL. The results should be used in conjunction with clinical conditions of myocardial infarction. (Access High Sensitivity Troponin I Instructions For Use, Eduora, December 2017) Performed By: #### 1 9349252, 3371117, 7960621, 52931407, 2109250, 1504983, 77106224, 42514693 ####[facility] [address] [place] [address] Troponin 3 Hr.on 08-24-2020 Troponin I.cardiac [Mass/Vol] 4.40 pg/mL Low 15.90-38.40 [facility] Comment on above: Result Comment: The 95% CI (Confidence Interval) PPV (Positive Predictive Value) for myocardial infarction in females is 38 pg/mL, in males 51 pg/mL. The results should be used in conjunction with clinical conditions of myocardial infarction. (Access High Sensitivity Troponin I Instructions For Use, Eduora, December 2017) Performed By: #### 1 1585927 ####[facility] [address] [place] [address] XR Chest Single Viewon 08-24 XR Chest [...] V. Transcribed by: VIVIAN Technologist: MMM Normal [facility] eGFRon 08-24-2020 GFR/1.73 sq M.predicted among blacks MDRD (S/P/Bld) [Vol rate/Area] mL/min/{1.73_m2} Normal >=59 [facility] Comment on above: Order Comment: Order added by Discern Expert. Result Comment: eGFR is race adjusted. AA=. Performed By: #### 1 7793247, 3522469, 1952825, 81327711, 4560392, 6748417, 09250752, 54823044 ####[facility] [address] [place] [address] GFR/1.73 sq M.predicted among non-blacks MDRD (S/P/Bld) [Vol rate/Area] mL/min/{1.73_m2} Normal >=59 [facility] Comment on above: Order Comment: Order added by Discern Expert. Result Comment: User Acceptance Tester jeniffer kidney disease could be indicated at eGFR's of less than 60 mL/min/1.73m2. Kidney failure is indicated at less than 15 mL/min/1.73m2. Performed By: #### 1 8693653, 8854145, 5431573, 41214949, 9789799, 8165027, 22522122, 18324721 ####[address] [place] [address] HIP RIGHT 1 OR 2 VWS WITH PE LVISon 07-24-2020 HIP RIGHT 1 OR 2 VWS WITH PELVIS [facility] Department of Radiology [address] [place] [address] Patient Name: LILIANA MICHAELS : [...] Electronically signed: Ana M Mariee. Transcribed by: [email or web address], User Resident: Electronically Signed by: ANA M MARIEE @ 07/24/2020 10:01 AM Normal [facility] Comment on above: Order Comment: Views (X-RAY, HIP): Radiologic Protocol HIP RIGHT 1 OR 2 VWS WITH PE LVISon 04-24-2020 HIP RIGHT 1 OR 2 VWS WITH PELVIS [facility] Department of Radiology [address] [place] [id number] Patient Name: LILIANA MICHAELS : 1965 Sex: M Age: Race: White Pt. Location: Patient Status: D Ordered Date: 04/24/2020 10:40:00 AM Completed Date: 04/24/2020 10:48 AM Requesting Provider: JEY ELISE Attending Provider: Report Copy To: Signs & Symptoms: Z96.641 Presence of right artificial hip joint I10 History: [place] Comments: Views (X-RAY, HIP): Radiologic Protocol Exam: HIP RIGHT 1 OR 2 VWS WITH PELVIS HIP RIGHT 1 OR 2 VWS WITH PELVIS HISTORY: Hip replacement, follow-up. COMPARISON: 03/14/2020. IMPRESSION: 1. Redemonstrated hip prosthesis, no hardware complication or acute abnormality. Electronically signed: Ed España. Transcribed by: [email or web address], User Resident: Electronically Signed by: ED ESPAÑA @ 04/25/2020 08:22 AM Normal [facility] Comment on above: Order Comment: Views (X-RAY, HIP): Radiologic Protocol Operative Reporton 0 Operative Report MR#: [id number] 2 [facility] Pt. Name: Liliana Michaels Room #: 6AB 238866 Discharge 03/15/2020 Date: Birthdate: 1965 OPERATIVE REPORT [...] a (more content not included)... Normal [facility] BASIC METABOLIC PANELon 11-0 Calcium [Mass/Vol] 8.8 mg/dL Normal 8.6-10.3 [facility] Comment on above: Order Comment: Views (X-RAY, HIP): Radiologic Protocol Performed By: #### 0 0071 ####[facility] Chloride [Moles/Vol] 98 mmol/L Normal 98-107 [facility] Comment on above: Order Comment: Views (X-RAY, HIP): Radiologic Protocol Performed By: #### 0 0071 ####[facility] [place] [address], [facility] CO2 [Moles/Vol] 30 mmol/L Normal 21-31 [facility] Comment on above: Order Comment: Views (X-RAY, HIP): Radiologic Protocol Performed By: #### 0 0071 ####[facility] [place] [address], [place] Creatinine [Mass/Vol] 0.96 mg/dL Normal 0.70-1.30 [facility] Comment on above: Order Comment: Views (X-RAY, HIP): Radiologic Protocol Performed By: #### 0 0071 ####[facility] [place] [address], [place] GFR/1.73 sq M.predicted among blacks MDRD (S/P/Bld) [Vol rate/Area] mL/min/{1.73_m2} Normal >60 [facility] Comment on above: Order Comment: Views (X-RAY, HIP): Radiologic Protocol Performed By: #### 0 0071 ####[facility] [facility] [address], [place] GFR/1.73 sq M.predicted among non-blacks MDRD (S/P/Bld) [Vol rate/Area] mL/min/{1.73_m2} Normal >60 [facility] Comment on above: Order Comment: Views (X-RAY, HIP): Radiologic Protocol Performed By: #### 0 0071 ####[facility] [place] [address], [place] Glucose [Mass/Vol] 151 mg/dL High 70-100 [facility] Comment on above: Order Comment: Views (X-RAY, HIP): Radiologic Protocol Performed By: #### [id number] ####[facility] [place] [address], [place] Potassium [Moles/Vol] 4.4 mmol/L Normal 3.5-5.1 [facility] Comment on above: Order Comment: Views (X-RAY, HIP): Radiologic Protocol Performed By: #### [id number] ####[facility] Sodium [Moles/Vol] 133 mmol/L Low 136-145 [facility] Comment on above: Order Comment: Views (X-RAY, HIP): Radiologic Protocol Performed By: #### [id number] ####[facility] Urea nitrogen [Mass/Vol] 20 mg/dL Normal 7-25 [facility] Comment on above: Order Comment: Views (X-RAY, HIP): Radiologic Protocol Performed By: #### [id number] ####[facility] CBC COMPLETE BLOOD COUNTon 05-15-2019 Erythrocyte distribution width (RBC) [Ratio] 12.2 % Normal 11.5-15.0 [facility] Comment on above: Order Comment: No: D o not add to previous draw Performed By: #### [id number] #### [facility] [address] [place] [address], [facility] Hematocrit (Bld) [Volume fraction] 42.2 % Normal 39.0-50.0 [facility] Comment on above: Order Comment: No: D o not add to previous draw Performed By: #### 5 [id number] #### [facility] [address] [facility] [place] [address], [facility] Hemoglobin (Bld) [Mass/Vol] 13.9 g/dL Normal 13.0-17.0 [facility] Comment on above: Order Comment: No: D o not add to previous draw Performed By: #### 5 0608 #### [facility] [address] [place] [address], [facility] MCH (RBC) [Entitic mass] 31.4 pg Normal 27.0-33.0 [facility] Comment on above: Order Comment: No: D o not add to previous draw Performed By: #### 5 0608 #### [facility] [address] [place] [address], [facility] MCHC (RBC) [Mass/Vol] 32.9 g/dL Normal 32.0-35.0 [facility] Comment on above: Order Comment: No: D o not add to previous draw Performed By: #### 5 0608 #### [facility] [address] [place] [address], [facility] MCV (RBC) [Entitic vol] 95.5 fL Normal 82.0-98.0 [facility] Comment on above: Order Comment: No: D o not add to previous draw Performed By: #### 5 0608 #### [facility] [address] [facility] [place] [address], [facility] Nucleated RBC/100 WBC (Bld) [Ratio] 0 % Normal 0-0 [facility] Comment on above: Order Comment: No: D o not add to previous draw Performed By: #### 5 0608 #### [facility] [address] [place] [address], [facility] PLAT CNT 254 10*3/uL Normal 150-400 [facility] Comment on above: Order Comment: No: D o not add to previous draw Performed By: #### 5 0608 #### [facility] [address] [facility] [address], [facility] RBC (Bld) [#/Vol] 4.42 10*6/uL Normal 4.20-5.70 [facility] Comment on above: Order Comment: No: D o not add to previous draw Performed By: #### 5 0608 #### [facility] [address] [place] [address], [facility] WBC (Bld) [#/Vol] 14.44 10*3/uL High 4.00-10.60 [facility] Comment on above: Order Comment: No: D o not add to previous draw Performed By: #### 5 0608 #### [facility] [address] [facility] [place] [address], [facility] POC GLUCOSE LABon 03-15-2020 Glucose [Mass/Vol] 193 mg/dL High 70-100 [facility] Comment on above: Performed By: #### 8 5499 #### [facility] [address] [facility] [place] [address], [facility] CBC W/DIFFon 03-14-2020 ABS IMM GRANS 0.2 10*3/uL Normal 0.0-0.2 [facility] Comment on above: Performed By: #### 5 0103 ####[facility] [facility] [address], [facility] ABS NEUTROPHILS 8.0 10*3/uL High 1.6-7.6 [facility] Comment on above: Performed By: #### 5 0103 ####[facility] [facility] [place] [address], [facility] Basophils (Bld) [#/Vol] 0.1 10*3/uL Normal 0.0-0.2 [facility] Comment on above: Performed By: #### 5 0103 ####[facility] [facility] [place] [place] [address], [facility] Basophils/100 WBC (Bld) 1.1 % High 0.0-1.0 [facility] Comment on above: Performed By: #### 5 0103 ####[facility] [facility] [place] [place] [address], [facility] Eosinophils (Bld) [#/Vol] 0.3 10*3/uL Normal 0.0-0.5 [facility] Comment on above: Performed By: #### 5 0103 ####[facility] [place] [address], [facility] Eosinophils/100 WBC (Bld) 2.7 % Normal 0.0-6.0 [facility] Comment on above: Performed By: #### 5 0103 ####[facility] [facility].[address] Erythrocyte distribution width (RBC) [Ratio] 12.3 % Normal 11.5-15.0 [facility] Comment on above: Performed By: #### 5 0103 ####[facility] [facility].[address] Hematocrit (Bld) [Volume fraction] 50.5 % High 39.0-50.0 [facility] Comment on above: Performed By: #### 5 0103 ####[facility] [facility].[address] Hemoglobin (Bld) [Mass/Vol] 17.3 g/dL High 13.0-17.0 [facility] Comment on above: Performed By: #### 3 ####[facility] IMMATURE GRANS 1.4 % High 0.0-1.0 [facility] Comment on above: Performed By: #### 5 3 ####[facility] [facility].[address] Lymphocytes (Bld) [#/Vol] 1.8 10*3/uL Normal 1.2-4.0 [facility] Comment on above: Performed By: #### 5 3 ####[facility] Lymphocytes/100 WBC (Bld) 15.6 % Low 20.0-45.0 [facility] Comment on above: Performed By: #### 3 ####[facility] [facility].[address] MCH (RBC) [Entitic mass] 31.7 pg Normal 27.0-33.0 [facility] Comment on above: Performed By: #### 5 0103 ####[facility] [facility].[address] MCHC (RBC) [Mass/Vol] 34.3 g/dL Normal 32.0-35.0 [facility] Comment on above: Performed By: #### 5 0103 ####[facility] [facility].[address] MCV (RBC) [Entitic vol] 92.7 fL Normal 82.0-98.0 [facility] Comment on above: Performed By: #### 5 0103 ####[facility] Monocytes (Bld) [#/Vol] 0.9 10*3/uL Normal 0.1-1.0 [facility] Comment on above: Performed By: #### 5 0103 ####[facility] [facility].[address] MONOS 8.2 % Normal 5.0-12.0 [facility] Comment on above: Performed By: #### 5 0103 ####[facility] [facility].[address] Neutrophils/100 WBC (Bld) 71.0 % Normal 40.0-72.0 [facility] Comment on above: Performed By: #### 5 0103 ####[facility] [facility].[address] Nucleated RBC/100 WBC (Bld) [Ratio] 0 % Normal 0-0 [facility] Comment on above: Performed By: #### 5 3 ####[facility] [facility] [address], [facility] PLAT CNT 301 10*3/uL Normal 150-400 [facility] Comment on above: Performed By: #### 5 0103 ####[facility] [facility] [place] [address], [facility] RBC (Bld) [#/Vol] 5.45 10*6/uL Normal 4.20-5.70 [facility] Comment on above: Performed By: #### 5 0103 ####[facility] [facility] [address], [facility] WBC (Bld) [#/Vol] 11.22 10*3/uL High 4.00-10.60 [facility] Comment on above: Performed By: #### 5 0103 ####[facility] HIP RIGHT 1 OR 2 VWS WITH PE LVISon 03-14-2020 HIP RIGHT 1 OR 2 VWS WITH PELVIS [facility] Department of Radiology [address] [place] [phone] Patient Name: LILIANA MICHAELS : 1965 [...] purposes Electronically signed: Aria Steinberg. Transcribed by: [email or web address], User Resident: Electronically Signed by: ARIA STEINBERG @ 03/14/2020 03:44 PM Normal [facility] Comment on above: Order Comment: RT TH A POC GLUCOSE LABon 03-14-2020 Glucose [Mass/Vol] 222 mg/dL High 70-100 [facility] Comment on above: Performed By: #### 8 [id number] #### [facility] [address] [facility] [place] [address], [place] Glucose [Mass/Vol] 217 mg/dL High 70-100 [facility] Comment on above: Performed By: #### 8 [id number] ####[facility] [facility] [place] [address], [place] Glucose [Mass/Vol] 141 mg/dL High 70-100 [facility] Comment on above: Performed By: #### 8 [id number] #### [facility] [address] [facility] [place] [address], [place] PORTABLE HIP RIGHT 1 OR 2 VW S WITH PELVISon 03-14-2020 PORTABLE HIP RIGHT 1 OR 2 VWS WITH PELVIS [facility] Department of Radiology [address] [place] [phone] Patient Name: LILIANA MICHAELS : 1965 Sex: [...] air Electronically signed: Aria Steinberg. Transcribed by: [email or web address], User Resident: Electronically Signed by: ARIA STEINBERG @ 03/14/2020 03:46 PM Normal [facility] Comment on above: Order Comment: Hardw are Evaluation, AP/Lateral TYPE AND SCREENon 03-14-2020 ABO INTERPRETATION O Normal [facility] Comment on above: Performed By: #### 6 2586 ####[facility] [place] [address], [facility] RH INTERPRETATION Positive Normal [facility] Comment on above: Performed By: #### 6 2586 ####[facility] Vital Signs Date Time Vital Sign Value Performing Clinician Facility 08-10-2023 13:31-0400 Body height 162.6 cm Amador Son MD Work Phone: [facility] 08-10-2023 13:31-0400 Body mass index (BMI) [Ratio] 34.67 kg/m2 Amador Son MD Work Phone: [facility] 08-10-2023 13:31-0400 Body weight 91.63 kg Amador Son MD Work Phone: [facility] 08-10-2023 13:31-0400 Diastolic blood pressure 70 mm[Hg] Amador Son MD Work Phone: [facility] 08-10-2023 13:31-0400 Heart rate 69 /min Amador Son MD Work Phone: [facility] 08-10-2023 13:31-0400 Systolic blood pressure 116 mm[Hg] Amador Son MD Work Phone: [facility] 08-05-2023 17:30-0400 Diastolic blood pressure 67 mm[Hg] Amador Son MD Work Phone: [facility] 08-05-2023 17:30-0400 Heart rate 60 /min Amador Son MD Work Phone: [facility] 08-05-2023 17:30-0400 Respiratory rate 16 /min Amador Son MD Work Phone: [facility] 08-05-2023 17:30-0400 SaO2% (BldA) [Mass fraction] 96 % Amador Son MD Work Phone: [facility] 08-05-2023 17:30-0400 Systolic blood pressure 112 mm[Hg] Amador Son MD Work Phone: [facility] 08-05-2023 12:13-0400 Body height 162.6 cm Amador Son MD Work Phone: [facility] 08-05-2023 12:13-0400 Body mass index (BMI) [Ratio] 34.17 kg/m2 Amador Son MD Work Phone: [facility] 08-05-2023 12:13-0400 Body temperature 97.5 [degF] Amador Son MD Work Phone: [facility] 08-05-2023 12:13-0400 Body weight 90.3 kg Amador Son MD Work Phone: [facility] 07-22-2023 14:38-0400 Body height 162.6 cm Amador Son MD Work Phone: [facility] 07-22-2023 14:38-0400 Body mass index (BMI) [Ratio] 34.33 kg/m2 Amador Son MD Work Phone: [facility] 07-22-2023 14:38-0400 Body weight 90.72 kg Amador Son MD Work Phone: [facility] 07-22-2023 14:38-0400 Diastolic blood pressure 90 mm[Hg] Amador Son MD Work Phone: [facility] 07-22-2023 14:38-0400 Heart rate 41 /min Amador Son MD Work Phone: [facility] 07-22-2023 14:38-0400 Systolic blood pressure 138 mm[Hg] Amador Son MD Work Phone: [facility] 07-14-2022 10:57-0500 Body height 162.56 cm [facility] Work Phone: 07-14-2022 10:57-0500 Body mass index (BMI) [Ratio] 32.96 kg/m2 Ishmael [facility] Work Phone: 07-14-2022 10:57-0500 Body surface area Derived from formula 1.92 m2 Ishmael A Naderer Work Phone: [facility] [place] [address] DO Work Phone: 07-14-2022 10:57-0500 Body weight 87.09 kg Ishmael A Naderer Work Phone: [facility] [address] DO Work Phone: 07-14-2022 10:57-0500 Diastolic blood pressure 64 mm[Hg] Ishmael A Naderer Work Phone: [facility] [employer] 600 DO Work Phone: 07-14-2022 10:57-0500 Heart rate 34 /min Ishmael A Naderer Work Phone: [facility] [employer] [address] DO Work Phone: 07-14-2022 10:57-0500 Systolic blood pressure 118 mm[Hg] Ishmael A Naderer Work Phone: [facility] [employer] [address] DO Work Phone: 01-28-2022 09:37-0400 Body height 162.56 cm Ishmael A Naderer Work Phone: [facility] [employer] 600 DO Work Phone: 01-28-2022 09:37-0400 Body mass index (BMI) [Ratio] 30.9 kg/m2 Ishmael A Naderer Work Phone: [facility] [employer] [address] DO Work Phone: 01-28-2022 09:37-0400 Body surface area Derived from formula 1.87 m2 Ishmael A Naderer Work Phone: [facility] [employer] [address] DO Work Phone: 01-28-2022 09:37-0400 Body weight 81.65 kg Ishmael A Naderer Work Phone: [facility] [address] DO Work Phone: 01-28-2022 09:37-0400 Diastolic blood pressure 50 mm[Hg] Ishmael Carterr Work Phone: [facility] [address] DO Work Phone: 01-28-2022 09:37-0400 Heart rate 41 /min Ishmael Simon Work Phone: [facility] [address] DO Work Phone: 01-28-2022 09:37-0400 Systolic blood pressure 112 mm[Hg] Ishmael Simon Work Phone: [facility] [address] DO Work Phone: Encounters Encounter Date Encounter Type Care Provider Facility Start: 01-13-2024 End: 01-13-2024 ambulatory ISHMAEL SIMON Not Available Start: 11-09-2023 End: 11-09[facility]20[facility] Start: 10-10-2023 End: 10-10-2023 ambulatory ISHMAEL SIMON Not Available Start: 09-26-2023 End: 09-26-2023 ambulatory [facility] Start: 09-26-2023 End: 09-26-2023 Subsequent hospital visit by physician Varsha Device Remote [facility] Comment on above: Cardiac pacemaker in situ; Sinoatrial node dysfunction (Multi) Start: 08-12-2023 End: 08-12-2023 ambulatory [facility] Start: 08-10-2023 End: 08-10-2023 Subsequent hospital visit by physician Varsha Ultrasound 3 [facility] Comment on above: Localized swelling o n left hand; S/P placement of cardiac pacemaker Start: 08-10-2023 End: 08-10-2023 ambulatory [facility] Ambulatory Start: 08-10-2023 End: 08-10-2023 Office outpatient visit 25 minutes Amador Son MD Work Phone: [facility] Comment on above: Chronotropic incompe tence (Primary Dx); Abnormal stress test; Sinus bradycardia; Sick sinus syndrome (CMS/HCC); Essential hypertension, benign; BMI 34.0-34.9,adult; Current smoker Start: 08-05-2023 End: 08-05-2023 Subsequent hospital visit by physician Amador Son MD Work Phone: [facility] Comment on above: Sinus bradycardia (P rimary Dx); Chronotropic incompetence; Sick sinus syndrome (CMS/HCC); Other fatigue; Abnormal stress test; Dyspnea; Pacemaker Start: 07-22-2023 End: 07-22-2023 ambulatory AMADORADY SON [facility] Ambulatory Start: 07-22-2023 End: 07-22-2023 Encounter for preprocedural cardiovascular examination [facility] Ambulatory Start: 07-22-2023 End: 07-22-2023 Office outpatient new 60 minutes Amador Son MD Work Phone: [facility] Comment on above: Chronotropic incompe tence (Primary Dx); Sinus bradycardia; Establishing care with new doctor, encounter for; BMI 34.0-34.9,adult; Sick sinus syndrome (CMS/HCC); Simple chronic bronchitis (CMS/HCC); Current smoker; Other fatigue; Preoperative cardiovascular examination Start: 07-22-2023 End: 07-22-2023 Patient encounter status Amador Son MD Work Phone: [facility] Work Phone: Start: 07-13-2023 End: 07-13-2023 ambulatory [facility] Ambulatory Start: 07-13-2023 End: 07-13-2023 ambulatory [facility] Ambulatory Start: 04-13-2023 End: 04-13-2023 ambulatory ISHMAEL SIMON Not Available Start: 10-14-2022 ambulatory CONNERENDADRIENNEATH ALINEMIPATHY . Facility: Start: 09-14-2022 End: 09-14-2022 ambulatory NARENDRANATH ALINEMIPATHY . Facility:[facility]1 Start: 08-31-2022 End: 09-01-2022 ambulatory NARENDRANATH LAKSHMIPATHY . Facility:[facility] Start: 08-04-2022 End: 08-05-2022 ambulatory NARENDRANATH LAKSHMIPATHY . Facility:[facility] Start: 07-23-2022 End: 08-07-2022 ambulatory NARENDRANATH LAKSHMIPATHY . Facility:[facility] Start: 07-20-2022 End: 07-21-2022 ambulatory NARENDRANATH LAKSHMIPATHY . Facility:[facility] Start: 07-15-2022 End: 07-16-2022 ambulatory AMINA CASSIDY . Facility:[facility] Start: 07-14-2022 Office outpatient vi sit 15 minutes Ishmael Simon Work Phone: [facility] 600 DO Work Phone: Start: 07-14-2022 [...] 02-16-2022 Chart Update Ishmael Simon Work Phone: [facility] 250 DO Work Phone: Start: 02-15-[address] Valentino Ty Facility:44 Start: 01-28-[address] Ishmael Simon Facility: Start: 01-28-2022 Office consultation new/estab patient 60 min Ishmael Simon Work Phone: [facility] 600 DO Work Phone: Start: 01-14-2022 End: 01-15-2022 ambulatory TERESO COLMENARES . Facility:[facility]1 Start: 01-01-2022 End: 01-02-[address] ISHMAEL SIMON Facility:[facility]1 Start: 12-15-2021 End: 12-15-[address] RICKY IBARRA . Facility:[facility]1 Start: 12-14-2021 Encounter for preprocedural laboratory examination DR RICKY IBARRA . [facility] Start: 12-12-2021 End: 12-13-[address] [...] Start: 10-03-2020 End: 10-04-2020 ambulatory SIMONE RUIZ Facility:[facility] Start: 03-26-2020 End: 04-10-2020 ambulatory JEY ELISE Facility:[facility] Start: 03-14-2020 End: 03-15-2020 ambulatory JEY ELISE Facility:[facility] Procedures Date Procedure Procedure Detail Performing Clinician Start: 09-26-2023 CARDIAC DEVICE CHECK - REMOTE NAIMA WRIGHT Start: 09-26-2023 CARDIAC DEVICE CHECK - REMOTE Amador Son MD Work Phone: Start: 08-10-2023 VASC US UPPER EXTREM ITY VENOUS DUPLEX LEFT NAIMA WRIGHT Start: 08-10-2023 Dup-scan xtr veins unilateral/limited study Naima Segurarogelio [employer]OR Work Phone: Start: 08-05-2023 Radiologic exam ches t single view Ana M Dodge Quoc [employer]AX AUDITOR[employer]PRODUCT AMBASSADOR Work Phone: Start: 08-05-2023 Ecg routine ecg w/le ast 12 lds trcg only w/o i&r Ana M Echo [employer] AUDIT[employer] AMBASSADOR Work Phone: Start: 08-05-2023 Electrophysiology study Amador Son MD Work Phone: Start: 08-05-2023 Echo tthrc r-t 2d w/ wom-mode compl spec&colr d Ana M Angel [employer]AX AUDITOR[employer]PRODUCT AMBASSADOR Work Phone: Start: 08-05-2023 Ecg routine ecg w/le ast 12 lds trcg only w/o i&r Ana M Angel [facility]UD[facility]ORM[facility]ell[facility] Work Phone: Start: 08-05-2023 Basic metabolic pane l calcium total Ana M Angel TAX AUDITOR-PRODUCT AMBASSADOR Work Phone: Start: 07-22-2023 CASE REQUEST EP LAB MINDI RHAF TRABOULSSI Start: 07-22-2023 AM[facility] MOURHAF TRABOULSSI Start: 07-22-2023 ECG 12-LEAD MOURHAF TR ABOULSSI Start: 07-22-2023 Ecg routine ecg w/le ast 12 lds w/i&r Amador Son MD Work Phone: Start: 07-13-2023 HOLTER OR EVENT CARD IAC MONITOR MOURHAF TRABOULSSI Start: 07-13-2023 ECG 12-LEAD MOURHAF TR ABOULSSI Start: 05-07-[address] ISHMAEL CROUCH Comment on above: Performed By: #### V ITAD, PSASC #### [facility] [address] [place] [address] Dr. Britt Mendoza Start: 03-15-2020 ANESTH HIP ARTHROPLASTY SIMONE RUIZ Start: 03-15-2020 TOTAL HIP ARTHROPLASTY JEY ELISE Start: 03-14-2020 Antibody screen SIMONE BOLIVAR Comment on above: Performed By: #### 6 [id number] ####[facility] Colonoscopy Ishmael A Naderer Work Phone: Excision of cyst Ishmael A Nade rer Work Phone: Hernia repair Ishmael A Naderer Work Phone: Operation on urinary system Ishmael A Naderer Work Phone: Surgical repair of u pper extremity Ishmael A Naderer Work Phone: Total replacement of hip Mar c A Naderer Work Phone: Plan of Treatment Date Care Activity Detail Author Start: 08-04-2024 Creatinine measurement Creatinine Level [facility] Start: 08-04-2024 Echocardiography Echocardiogram [facility] Start: 08-04-2024 Potassium measurement Potassium Level [facility] Start: 01-08-2024 Influenza vaccination Influenza Vaccine (Season Ended) [facility] Start: 11-09-2023 End: 08-04-2024 Cardiac Device Check - In Clinic Cardiac Device Check - In Clinic Implantable Cardiac Device Routine Pacemaker Expected: 11/09/2023 (Approximate), Expires: 08/04/[address] [facility] Service Area Work Phone: Comment on above: Expected: 11/09/2023 (Approximate), Expi res: 08/04/2024 Start: 11-09-2023 End: 08-04-2024 XR Chest 2 Views XR chest 2 views Imaging Routine Pacemaker Expected: 11/09/2023, Expires: 08/04/2024 [facility] Work Phone: Comment on above: Expected: 11/09/2023, Expires: Start: 11-09-2023 End: 11-09-2023 Patient encounter procedure [facility] Start: 11-03-2023 End: 11-03-2023 Patient encounter procedure 11/03/2023 8:50 AM EDT Office Visit [place] [address] [place] [phone] Valentino Ty MD [address] [facility] [address], [address] [place] [address] [facility] Start: 08-12-2023 End: 08-12-2023 Clinical Support 08/12/2023 8:30 AM EDT Clinical Support [facility] [address] [place] [phone] [facility] Start: 08-10-2023 Subsequent hospital visit by physician 08/10/2023 2:09 PM EDT Hospital Encounter [facility] [address] [place] [phone] Localized swelling on left hand; S/P placement of cardiac pacemaker [facility] Comment on above: Localized swelling on left hand; S/P placement of cardiac pacemaker Start: 07-22-2023 End: 07-21-2025 Heart Transthoracic Transthoracic Echo Complete Echocardiography Routine Sinus bradycardia Chronotropic incompetence Sick sinus syndrome (CMS/HCC) Other fatigue Preoperative cardiovascular examination Expected: 07/22/2023 (Approximate), Expires: 07/21/2025 [facility] Work Phone: Comment on above: Expected: 07/22/2023 (Approximate), Expi res: 07/21/2025 Start: 07-13-2023 FUV, Provider: Valentino Ty, Status: Pen, Time: 8:30 AM FUV, Provider: Valentino Ty, Status: Pen, Time: 8:30 AM [facility] 600 DO Work Phone: Start: 01-07-2023 COVID-19 Vaccine ( season) COVID-19 Vaccine ( season) [facility] Start: 01-07-2023 Influenza vaccination Influenza Vaccine (#1) [facility] Start: 07-14-2022 FUV, Provider: Valentino Ty, Status: Pen, Time: 10:40 AM FUV, Provider: Valentino Ty, Status: Pen, Time: 10:40 AM [facility] 600 DO Work Phone: Start: 02-15-2022 STRESS JUICE, Provider: CARLITO KEANE NUCLEAR 01,[id number], Status: Pen, Time: 2:00 PM STRESS JUICE, Provider: CARLITO KEANE NUCLEAR 01,[id number], Status: Pen, Time: 2:00 PM [facility] 600 DO Work Phone: Start: 02-21-2014 Zoster Vaccines (1 of 2) Zoster Vaccines (1 of 2) [facility] Start: 02-21-1986 DTaP/Tdap/Td Vaccines (1 - Tdap) DTaP/Tdap/Td Vaccines (1 - Tdap) [facility] Start: 02-21-1983 Hepatitis B Vaccines (1 of 3 - 19+ 3-dose series) Hepatitis B Vaccines (1 of 3 - 19+ 3-dose series) [facility] Start: 02-21-1983 Urine screening for protein Diabetes: Urine Protein Screening [facility] Start: 02-21-1982 Diabetes mellitus screening Diabetes Screening [facility] Start: 02-21-1982 Hepatitis C screening Hepatitis C Screening [facility] Start: 02-21-1974 Diabetic foot examination Diabetes: Foot Exam [facility] Start: 02-21-1974 Glaucoma screening Diabetes: Retinopathy Screening [facility] Start: 02-21-1970 Pneumococcal Vaccine: Pediatrics (0 to 5 Years) and At-Risk Patients (6 to 64 Years) (1 - PCV) Pneumococcal Vaccine: Pediatrics (0 to 5 Years) and At-Risk Patients (6 to 64 Years) (1 - PCV) [facility] Start: 02-21-1970 Pneumococcal Vaccine: Pediatrics (0 to 5 Years) and At-Risk Patients (6 to 64 Years) (1 of 2 - PCV) Pneumococcal Vaccine: Pediatrics (0 to 5 Years) and At-Risk Patients (6 to 64 Years) (1 of 2 - PCV) [facility] Start: 02-21-1965 MMR Vaccines (1 of 1 - Standard series) MMR Vaccines (1 of 1 - Standard series) [facility] Start: 1964 COVID-19 Vaccine (#1) COVID-19 Vaccine (#1) [facility] Start: 1964 Creatinine measurement Creatinine Level [facility] Start: 1964 Echocardiography Echocardiogram [facility] Start: 1964 Hemoglobin A1c measurement Diabetes: Hemoglobin A1C [facility] Start: 1964 Hepatitis B Vaccines (1 of 3 - 3-dose series) Hepatitis B Vaccines (1 of 3 - 3-dose series) [facility] Start: 1964 HIV screening HIV Screening [facility] Start: 1964 Lipid panel Lipid Panel [facility] Start: 1964 Medicare Annual Wellness Visit Medicare Annual Wellness Visit (AWV) [facility] Start: 1964 Potassium measurement Potassium Level [facility] Start: 1964 Screening for malignant neoplasm of colon [facility] End: 07-21-2024 Basic metabolic 2000 panel - Serum or Plasma Basic Metabolic Panel Lab Routine Sinus bradycardia Chronotropic incompetence Sick sinus syndrome (CMS/HCC) Other fatigue 1 Occurrences starting 07/22/2023 until 07/21/2024 [facility] Work Phone: Comment on above: 1 Occurrences starting 07/22/2023 until 07/21/2024 End: 07-21-2024 CBC panel - Blood by Automated count CBC Lab Routine Sinus bradycardia Chronotropic incompetence Sick sinus syndrome (CMS/HCC) Other fatigue 1 Occurrences starting 07/22/2023 until 07/21/2024 [facility] Work Phone: Comment on above: 1 Occurrences starting 07/22/2023 until 07/21/2024 ECG 12 lead STAT ECG 12 lead STA T ECG STAT 08/05/2023 12:[address] [facility] Service Area Work Phone: ECG 12 lead STAT ECG 12 lead STA T ECG STAT 08/05/2023 5:12 PM EDT [facility] Work Phone: PPM IMPLANT DC PPM IMPLANT DC S inus bradycardia Chronotropic incompetence Sick sinus syndrome (CMS/HCC) Other fatigue [facility] Work Phone: End: 07-21-2024 Prothrombin time (PT) Protime-INR Lab Routine Sinus bradycardia Chronotropic incompetence Sick sinus syndrome (CMS/HCC) Other fatigue 1 Occurrences starting 07/22/2023 until 07/21/[address] [facility] Service Area Work Phone: Comment on above: 1 Occurrences starting 07/22/2023 until 07/21/2024 Payers Date Payer Category Payer Medicare HU[employer]NA MEDICARE [employer] GOLD CHOICE [id number] 2023-Present [address] [address] [place] [address] [id number] [id number] 2023 Medicare [id number] 1964 Unknown [id number] 2.16.840.1.333188.3.579.2.647 1964 Unknown [id number] 2.16.840.1.349799.3.579.2.647 1964 Unknown [id number] 2.16.840.1.138534.3.579.2.647 1964 Unknown [id number] 2.16.840.1.783708.3.579.2.1068 1964 Unknown [id number] 2.16.840.1.906083.3.579.2.356 1964 Unknown [id number] 2.16.840.1.909530.3.579.2.356 1964 Unknown [id number] 2.16.840.1.267575.3.579.2.593 1964 Unknown [id number] 2.16.840.1.969527.3.579.2.593 1964 Unknown [id number] 2.16.840.1.253482.3.579.2.593 1964 Unknown [id number] 2.16.840.1.770974.3.579.2.593 1964 Unknown [id number] 2.16.840.1.211497.3.579.2.593 1964 Unknown [id number] 2.16.840.1.765053.3.579.2.593 1964 Unknown [id number] 2.16.840.1.697268.3.579.2.593 1964 Unknown [id number] 2.16.840.1.921076.3.579.2.593 1964 Unknown [id number] 2.16.840.1.215676.3.579.2.593 1964 Unknown [id number] 2.16.840.1.562635.3.579.2.593 1964 Unknown [id number] 2.16.840.1.367043.3.579.2.593 1964 Unknown [id number] 2.16.840.1.240679.3.579.2.593 1964 Unknown [id number] 2.16.840.1.726100.3.579.2.593 1964 Unknown [id number] 2.16.840.1.265762.3.579.2.593 1964 Unknown [id number] 2.16.840.1.694993.3.579.2.593 1964 Unknown [id number] 2.16.840.1.014313.3.579.2.593 1964 Unknown [id number] 2.16.840.1.836701.3.579.2.593 1964 Unknown [id number] 2.16.840.1.340524.3.579.2.593 1964 Unknown [id number] 2.16.840.1.982677.3.579.2.593 1964 Unknown [id number] 2.16.840.1.008410.3.579.2.593 1964 Unknown [id number] 2.16.840.1.561904.3.579.2.593 1964 Unknown [id number] 2.16.840.1.037678.3.579.2.593 1964 Unknown [id number] 2.16.840.1.460163.3.579.2.593 1964 Unknown [id number] 2.16.840.1.667347.3.579.2.593 1964 Unknown [id number] 2.16.840.1.465465.3.579.2.1244 1964 Unknown [id number] 2.16.840.1.202706.3.579.2.1244 1964 Unknown [id number] .16.840.1.951225.3.579.2.1244 1964 Unknown [id number] 2.16.840.1.541247.3.579.2.1244 1964 Unknown [id number] 2.16.840.1.743740.3.579.2.1244 1964 Unknown [id number] 2.16.840.1.962666.3.579.2.1244 1964 Unknown [id number] 2.16.840.1.201980.3.579.2.1246 1964 Unknown [id number] 2.16.840.1.235633.3.579.2.1246 1964 Unknown [id number] 2.16.840.1.204885.3.579.2.1246 1964 Unknown [id number] 2.16.840.1.348375.3.579.2.1246 1964 Unknown [id number] 2.16.840.1.508354.3.579.2.1259 1964 Unknown [id number] 2.16.840.1.157515.3.579.2.1259 1964 Unknown [id number] 2.16.840.1.934468.3.579.2.1259 1960 Medicaid [id number] 1960 Medicare [id number] Unknown [id number] Unknown Social History Date Type Detail Facility Start: 07-13-2023 End: 08-10-2023 No alcohol use No alcohol use [facility] 600 DO Work Phone: Comment on above: 1 pack daily; Start: 07-13-2023 End: 08-05-2023 Tobacco smoking status NHIS Smokes tobacco daily [facility] History of tobacco use Cigarette Smoker [facility] Work Phone: Start: 07-13-2023 End: 08-05-2023 Tobacco use and exposure Smokeless tobacco non-user [facility] Work Phone: Start: 07-22-2023 End: 08-10-2023 Alcohol intake Lifetime non-drinker (finding) [facility] Work Phone: Start: 07-13-2023 End: 08-10-2023 Tobacco use panel [facility] Work Phone: Start: 1965 Sex Assigned At Not on file [facility] Work Phone: Start: 07-12-2023 End: 08-10-2023 Exposure to SARS-CoV-2 (event) Not sure [facility] Medical Equipment Procedure Code Equipment Code Equipment Origin al Text Equipment Identifier Dates Lead, Capsurefix Novus, 52 Cm - [id number] Start: 08-05-2023 Lead, Capsurefix Novus, 45 Cm - [id number] Start: 08-05-2023 Pacemaker, Dual Chamber, Kae Mri Xt Dr - [id number] Start: 08-05-2023 Clinical Notes 08-31-2020 to [...] some point he had some evaluation in [place] that shows no significant obstructive coronary disease [...] night however but few episodes in the casino investigator hours were also noted 5. No symptoms [...] Diagnosis Date Arrhythmia CHF (congestive heart failure) ([facility]) COPD (chronic obstructive pulmonary disease) ([facility]) Hypertension Social History Social History Tobacco Use [...] breakfast cetirizine (ZYRTEC) 10 mg, oral, Nightly igluvtadkaz-ttdfybxit-mnlpweff (TRELEGY-ELLIPTA) 100-62.5-25 mcg blister with device 1 [...] prepare this document. documented in this encounter [facility] Work Phone: 08-10-2023 Instructions Vero Mccarthy [...] Amador Son MD documented in this encounter [facility] Work Phone: 08-05-2023 Nurse Note Patient discharge instructions reviewed with patient and , verbalized understanding. Lt chest dressing remains dry/intact, no hematoma, no ecchymosis. Patient able to teachback site care instructions, follow up appointments. IV x2 removed and patient discharged to home via w/c. [facility] 08-05-2023 Nurse Note Patient discharge instructions [...] and ice pack over site. Sterling from [employer] in room speaking to Pt and SO educating on home device monitor. Pt returned to room after echocardiogram. Denies needs at this time. documented in this encounter [facility] Work Phone: 08-05-2023 Nurse Note Patient sitting up in chair, denies any complaints of incisional pain. Lt upper chest incision remains dry/intact. Will begin discharge instructions. [facility] Work Phone: 08-05-2023 Nurse Note Patient ambulated to BR, gait steady. Pacer rep has already met with patient and . Lt upper chest dressing remains dry/intact. Lt arm in immobilizer and ice pack over site. [facility] Work Phone: 08-05-2023 Note Formatting of this n ote might be different from the original. Post EKG and CXR performed at bedside. Pt denies needs at this time. Left chest remains soft and stable with no hematoma or oozing. [facility] Work Phone: 08-05-2023 Miscellaneous Notes Post [...] discussed with patient. documented in this encounter [facility] Work Phone: 08-05-2023 Hospital Discharge instructions Ana M Kumari APRN-PRODUCT AMBASSADOR - 08/05/2023 5:00 PM EDT Images from [...] your arm above shoulder level. Do not continuous pickling line pickler helper items that weigh greater than 10 lbs [...] have been instructed by the device company registration representative regarding remote home monitoring. There are [...] sent through Care Everywhere.Pacemaker Insertion Discharge Instructions (Bulgarian)documented in this encounter [facility] Work Phone: 08-05-2023 Note Formatting of [...] Pt denies further needs at this time. [facility] Work Phone: 08-05-2023 Note Table formatting [...] of infection. The patient should call the return to factory clerk immediately if symptoms recur, or for any problems. The patient has been instructed accordingly. 2. Follow up with [facility] office in seven days for post-operative wound [...] Device implanted Device implanted Medtronic dual-chamber pacemaker Kae XT DR MRI model number W1 DR 017 number [id number]. Right atrial lead Medtronic 5076/45 serial number [id number] 8 mm [id number]. Imp (more content not included)... [id number] 08-05-2023 Note Formatting of this n ote might be different from the original. Sedation Plan ASA 2 Mallampati class: II. Risks, benefits, and alternatives discussed with patient. [facility] Work Phone: 08-05-2023 Attending History and [...] some point he had some evaluation in [place] that shows no significant obstructive coronary disease [...] night however but few episodes in the casino investigator hours were also noted 5. No symptoms [...] breakfast cetirizine (ZYRTEC) 10 mg, oral, Nightly pjxarulywmo-kzxgdbpud-oaqoktih (TRELEGY-ELLIPTA) 100-62.5-25 mcg blister with device 1 [...] software was utilized to prepare this document. [facility] Work Phone: 08-05-2023 History and physical [...] some point he had some evaluation in [place] that shows no significant obstructive coronary disease [...] night however but few episodes in the casino investigator hours were also noted 5. No symptoms [...] breakfast cetirizine (ZYRTEC) 10 mg, oral, Nightly ykoarktplpo-jjihjjgtj-wagawpyy (TRELEGY-ELLIPTA) 100-62.5-25 mcg blister with device 1 [...] prepare this document. documented in this encounter [facility] Work Phone: 08-05-2023 Nurse Note Sterling from [employer] in room speaking to Pt and SO educating on home device monitor. [facility] 08-05-2023 Nurse Note Pt returned to room after echocardiogram. Denies needs at this time. [facility] Work Phone: 07-22-2023 History of Present [...] some point he had some evaluation in [place] that shows no significant obstructive coronary disease [...] night however but few episodes in the casino investigator hours were also noted 5. No symptoms [...] breakfast cetirizine (ZYRTEC) 10 mg, oral, Nightly kxooadrazff-gfcnwkjln-cyhqiklw (TRELEGY-ELLIPTA) 100-62.5-25 mcg blister with device 1 [...] prepare this document. documented in this encounter [facility] Work Phone: 07-22-2023 Instructions Jazz Flynn [...] AMADOR SON MD documented in this encounter [facility] Work Phone: 07-20-2022 Note CONSULTATION PROCEDURE [...] right medial portion of his leg. [facility] 05-07-2022 Note CONSULTATION CONSULTATION DATE: 05/07/2022 [...] three months' time unless otherwise indicated. [facility] 01-14-2022 Note CONSULTATION CONSULTATION DATE: 01/14/2022 [...] it was recommended that he see a cyber security, which he did do. He did a Holter monitor study and is following up with his cyber security on 01/28/2022. Current medications include gabapentin 300 [...] agrees with the plan of care. [facility] 11-19-2021 Note CONSULTATION CONSULTATION DATE: 11/19/2021 [...] to S1. Activities such as standing, walking, casino investigator and evening hours, stairs, bending and physical [...] be followed up in the clinic post-procedure. [facility] Signed and Approved by: TERESO COLMENARES . 11/27/2021 14:13:00 [facility] 10-22-2021 Note CONSULTATION CONSULTATION DATE: [...] Pain does not radiate below the knees. Moi's point is non-tender bilaterally. MUSCULOSKELETAL: Motor [...] patient agrees with the plan of care. [facility] Signed and Approved by: TERESO COLMENARES . 11/04/2021 16:23:00 [facility] 10-01-2021 Note CONSULTATION CONSULTATION [...] shape. He has seen Dr. Nunn in [place] in the past regarding his back, and [...] Patient agrees with the plan of care. [facility] Signed and Approved by: TERESO COLMENARES . 10/08/2021 16:01:00 [facility] 08-31-2020 Note Microbiology PROCEDURE: Blood [...] Locations R1: [facility] at[facility], [address] [place] [address], [address] [place] [address], [facility] Comment on above: Performed By: #### 1 [id number] ####[address] [place] [address] 08-31-2020 Note Microbiology PROCEDURE: Blood Culture Charcoal [...] Locations R1: This test was performed at: [facility], [address] [place] [address], [address] [place] [address], [facility] Comment on above: Performed By: #### 1 [id number] ####[address] [address] Evaluation note Diagnosis 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 Sinus bradycardia Other specified cardiac dysrhythmias Establishing care with new doctor, encounter for BMI 34.0-34.9,adult Sick sinus syndrome (CMS/HCC) Sinoatrial node dysfunction Simple chronic bronchitis (CMS/HCC) Simple chronic bronchitis Current smoker Other fatigue Preoperative cardiovascular examination Pre-operative cardiovascular examination documented in this encounter [facility] Work Phone: Evaluation note* Diagnosis Other [...] dysfunction Other fatigue documented in this encounter [facility] Work Phone: Evaluation note* Diagnosis Localized swelling on left hand S/P placement of cardiac pacemaker 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 Abnormal stress test Other nonspecific abnormal cardiovascular system function study Sinus bradycardia Other specified cardiac dysrhythmias Sick sinus syndrome (CMS/HCC) Sinoatrial node dysfunction Essential hypertension, benign BMI 34.0-34.9,adult Current smoker documented in this encounter [facility] Work Phone: Evaluation note* Diagnosis Localized swelling on left hand S/P placement of cardiac pacemaker documented in this encounter [facility] Work Phone: Evaluation note* Diagnosis Cardiac pacemaker in situ Sinoatrial node dysfunction (Multi) Sinoatrial node dysfunction documented in this encounter [facility] Work Phone: History of Present illness Narrative* Patient is here for cardiovascular evaluation for second opinion in regard to documents resting sinus bradycardia. The patient is 56-year-old with history of tobacco use and COPD was evaluated recently due to shortness of breath and his stress test showed questionable inferior wall ischemia. This led to a cardiac evaluation in [place] and its not clear to me whether [...] recent ischemic evaluation * 5 follow-up in [address] [place] [address] 600 DO Work Phone: History of Present illness Narrative* Patient is here for cardiovascular evaluation for second opinion in regard to documents resting sinus bradycardia. The patient is 56-year-old with history of tobacco use and COPD was evaluated recently due to shortness of breath and his stress test showed questionable inferior wall ischemia. This led to a cardiac evaluation in [place] and its not clear to me whether [...] ischemic evaluation * 5 follow-up in [facility] Work Phone: History of Present illness Narrative* Patient is here for cardiovascular evaluation for second opinion in regard to documents resting sinus bradycardia. The patient is 56-year-old with history of tobacco use and COPD was evaluated recently due to shortness of breath and his stress test showed questionable inferior wall ischemia. This led to a cardiac evaluation in [place] and its not clear to me whether [...] ischemic evaluation * 5 follow-up in [facility] Work Phone: History of Present [...] ischemic evaluation. He underwent cardiac catheterization in [place] which showed no significant obstructive disease * [...] EKG or earlier if the need arise [facility] 600 DO Work Phone: Summary Purpose Family [...] LILIANA MICHAELS is being seen for npv/ jenelle.LILIANAJAVI MICHAELS is being seen for npv/ jenelle.LILIANAJAVI MICHAELS is being seen for npv/ jenelle.LILIANA MICHAELS is being seen for a month follow-up of. Reason for Referral Specialty Diagnoses / Procedures Referred By Contac t Referred To Contact Cardiology Diagnoses Sinus bradycardia Chronotropic incompetence Sick sinus syndrome (CMS/HCC) Other fatigue Preoperative cardiovascular examination Procedures Transthoracic Echo Complete AK ECHO TTHRC R-T 2D W/WOM-MODE COMPL SPEC&COLR D Amador Son MD [address] [address] Referral ID Status Reason Start Date Expiration Date Visits Requested Visits Authorized [id number] Pending Review Perform Procedure 07/22/2023 07/21/2024 1 1 Specialty Diagnoses / Procedures Referred By Contac t Referred To Contact Diagnoses Sinus bradycardia Establishing care with new doctor, encounter for Procedures ECG 12 lead (Clinic Performed) Amador Son MD [address] [place] [id number] Referral ID Status Reason Start Date Expiration Date V isits Requested Visits Authorized [id number] Authorized 07/22/2023 07/21/2024 1 1 Specialty Diagnoses / Procedures Referred By Contac t Referred To Contact Radiology Diagnoses Pacemaker Procedures XR chest 2 views Ana M Kumari, TAX AUDITOR-PRODUCT AMBASSADOR [address] [facility], [address] [address] Referral ID Status Reason Start Date Expiration Date Visits Requested Visits Authorized [id number] Authorized Perform Procedure 08/05/2023 08/04/2024 1 1 Specialty Diagnoses / Procedures Referred By Contac t Referred To Contact Cardiology Diagnoses Pacemaker Procedures Cardiac Device Check - In Clinic Ana M Kumari, TAX AUDITOR-PRODUCT AMBASSADOR [address] [facility], [address] [address] Referral ID Status Reason Start Date Expiration Date Visits Requested Visits Authorized [id number] Pending Review Perform Procedure 08/05/2023 08/04/2024 1 1 Specialty Diagnoses / Procedures Referred By Contac t Referred To Contact Cardiology Diagnoses Localized swelling on left hand S/P placement of cardiac pacemaker Procedures Vascular US upper extremity venous duplex left Naima Wright, TAX AUDITOR-PRODUCT AMBASSADOR [address] [facility], [address] [address] Referral ID Status Reason Start Date Expiration Date Visits Requested Visits Authorized [id number] Authorized Perform Procedure 08/09/2023 08/08/2024 1 1 Specialty Diagnoses / Procedures Referred By Contac t Referred To Contact Cardiology Diagnoses Cardiac pacemaker in situ Sinoatrial node dysfunction (Multi) Procedures Cardiac Device Check - Remote Amador Son MD [address] [facility] [address] [place] [address] Referral ID Status Reason Start Date Expiration Date Visits Requested Visits Authorized [id number] Pending Review Perform Procedure 08/08/2023 08/07/2024 1 1 Additional Source Comments (unrecognized sect ion and content) No Status Records FoundNo Status Records FoundNo Status Records FoundNo Status Records FoundNo Status Records FoundNo Status Records FoundNo Status Records FoundNo Status Records FoundNo Status Records Found INFORMATION SOURCE (unrecogn ized section and content) DATE CREATED AUTHOR 03/06/2021 [facility] DATE CREATED AUTHOR AUTHOR'S ORGANIZ ATION 03/12/2021 [facility] DATE CREATED AUTHOR AUTHOR'S ORGANIZ ATION 02/16/2022 [facility] DATE CREATED AUTHOR AUTHOR'S ORGANIZ ATION 07/16/2022 [facility] DATE CREATED AUTHOR AUTHOR'S ORGANIZ ATION 07/16/2022 [employer] DATE CREATED AUTHOR AUTHOR'S ORGANIZ ATION 09/17/2022 [facility] DATE CREATED AUTHOR AUTHOR'S ORGANIZ ATION 11/10/2023 [facility] DATE CREATED AUTHOR AUTHOR'S ORGANIZ ATION 11/30/[address] [facility] DATE CREATED AUTHOR AUTHOR'S ORGANIZ ATION 01/15/2024 [facility] EPIC Reason for Visit (unrecogniz ed section and content) Reason Comments New Patient Visit Pt is here today as a new patient from Dr. Ty Specialty Diagnoses / Procedures Referred By Isela t Referred To Contact Cardiology Diagnoses Sinus bradycardia Valentino Ty MD [address] [facility] [address], [address] [place] [address] Amador Son MD [address] [facility] Medical Office [facility], [address] [place] [address] Referral ID Status Reason Start Date Expiration Date Visits Requested Visits Authorized [id number] Authorized Specialty Services Required 07/15/2023 07/14/2024 1 1 Specialty Diagnoses / Procedures Referred By Isela t Referred To Contact Diagnoses Sinus bradycardia Chronotropic incompetence Sick sinus syndrome (CMS/HCC) Other fatigue Sinus bradycardia [R00.1] Chronotropic incompetence [I45.89] Sick sinus syndrome (CMS/HCC) [I49.5] Other fatigue [R53.83] Procedures AK INS NEW/RPLCMT PRM PM W/TRANSV ELTRD ATRIAL&VENT PPM IMPLANT DUAL Amador Son MD [address] [facility] [address] [place] [address] [facility] [address] [place] [address] Referral ID Status Reason Start Date Expiration Date Visits Re quested Visits Authorized [id number] 1 1 Reason Comments Wound Check Patient is having sw elling in his right hand Specialty Diagnoses / Procedures Referred By Isela t Referred To Contact Cardiology Diagnoses Localized swelling on left hand S/P placement of cardiac pacemaker Procedures Vascular US upper extremity venous duplex left Yusuf-Naima Rodriguez E, TAX AUDITOR-PRODUCT AMBASSADOR [address] [facility] Medical Office [facility] [address] [place] [address] Referral ID Status Reason Start Date Expiration Date Visits Requested Visits Authorized [id number] Authorized Perform Procedure 08/09/2023 08/08/2024 1 1 Specialty Diagnoses / Procedures Referred By Isela t Referred To Contact Cardiology Diagnoses Cardiac pacemaker in situ Sinoatrial node dysfunction (Multi) Procedures Cardiac Device Check - Remote Amador Son MD [address] [place] [address] [address] [place] [address] Referral ID Status Reason Start Date Expiration Date Visits Requested Visits Authorized [id number] Pending Review Perform Procedure 08/08/2023 08/07/2024 1 1 Care Teams (unrecognized sec tion and content) Deputy [employer] Relationship Specialty Start Date End Date Ishmael Simon MD [address] [facility] [place] [address] PCP - General Family Medicine 06/29/[address] Relationship Specialty Start Date End Date Ishmael Simon MD [address] [place] [phone] PCP - General Family Medicine 06/29/[address] Relationship Specialty Start Date End Date Ishmael Smion MD [address] [place] [phone] PCP - General Family Medicine 06/29/[address] Relationship Specialty Start Date End Date Ishmael Simon MD [address] [place] [phone] PCP - General Family Medicine 06/29/[address] Relationship Specialty Start Date End Date Ishmael [...] Lexi Araiza RN)[id number] (Due: Stopped - Provider: Ana M Kumari APRN-PRODUCT AMBASSADOR) sodium chloride 0.9% infusion (CANCELED) 20 mL/hr, intravenous, Continuous, Starting on Tue08/05/23 at 1230, Preprocedure, oncology nurse navigator to EP lab 1221 (New Bag - Prov ider: Lexi Araiza RN)[id number] (Due: Stopped - Provider: Ana M Kumari, TAX AUDITOR-PRODUCT AMBASSADOR) PRN Medication Order 08/03/2023 08/04/2023 08/05/2023 acetaminophen [...] BE BASED ON THE PRIMARY CLINICAL RECORDS. [employer] provides no warranty or guarantee of the accuracy or completeness of information in this document.
[2024-01-24] MEDS: 0.9 % SODIUM CHLORIDE 500 ML IV (09:12)
[2024-01-24] MEDS: BUPIVACAINE HCL 0.25% PF 25 MG/10 ML VIAL 5 ML INJ (09:46)
[2024-01-24] MEDS: LIDOCAINE HCL 2% 400 MG/20 ML MDV 5 ML INJ (09:47)
[2024-01-24] MEDS: METHYLPREDNISOLONE ACETATE 40 MG/ML VIAL INJ (09:47)
[2024-01-24 09:49] VITALS: BP 126/71; PULSE 65; TEMP 36.5; O2SAT 96
[2024-01-24 09:52] VITALS: BP 115/92; PULSE 64; TEMP 36.5; O2SAT 93
--- NOTE | 2024-01-24 10:41 | W.PM.PROCNOT ---
Date of procedure: 01/24/24 Pre-op diagnosis: Lumbar spondylosis Post-op diagnosis: same as pre-op Procedure: Right lumbar 1/2, 3/4 Radiofrequency ablation Under fluoroscopic guidance Rhizotomy was created using radio frequency ablation at 80?C for 90 seconds 1 to 2 lesions created at each site. Post lesioning injection of 2 mL each of 0.25% Marcaine and 2% lidocaine with Depo-Medrol 40mg. 0.5 to 1 mL injected at each site IV in place yes If Intravenous fluids: NS at KVO Anesthesia local 2% lidocaine for Anesthesia Other: MAC Timeout process compliant After informed consent obtained.Patient brought to the procedure room placed in the prone position skin overlying the area was prepped and draped in a sterile fashion using betadine. 25 gauge needle was used to create a skin wheal over each of the targeted areas utilizing 2% lidocaine. A rhizotomy needle with a 10 mm active tip was inserted over each of the anesthetized areas and directed towards each of the medial branches accomplished under fluoroscopic guidance. after encountering the same we had positive sensory stimulation, negative motor stimulation was noted. lesions were then created. Post lesioning, steroid solution was injected needles removed. Patient was transferred to recovery room in stable condition to be discharged home after meeting criteria. Anesthesia: MAC Surgeon: Lizeth Aguero Condition: stable
== END 2024-01-24 10:14 | disposition home or self-care (01) ==
LOC: SURGOUT 08:42
PROVIDERS: PCP Family Medicine; Visit Provider Anesthesiology Pain Medicine
DX: M47.816 Spondylosis without myelopathy or radiculopathy, lumbar region (principal); F17.210 Nicotine dependence, cigarettes, uncomplicated; J44.9 Chronic obstructive pulmonary disease, unspecified; I10 Essential (primary) hypertension; Z95.0 Presence of cardiac pacemaker; K21.9 Gastro-esophageal reflux disease without esophagitis; Z96.641 Presence of right artificial hip joint
CPT/HCPCS: 64635; 64636; J0665; J1010; J2704

== ENCOUNTER 2024-02-06 13:42 | Outpatient (OUT) | payer MEDICARE, SELFPAY ==
--- OUTSIDE RECORDS SUMMARY | 2024-02-06 13:52 | XMS_ITS | CCD ---
Author Organization [facility] Care Team Providers Care Collaborating Supervising Physician Name Role Phone SIMONE RUIZ Admitting Unavailable SIMONE RUIZ Attending Unavailable ISHMAEL SIMON Referring Unavailable ISHMAEL SIMON Primary Care Unavailable JEY ELISE Attending Unavailable JEY ELISE Surgeon Unavailable MN Procedure Practitioner Unavailab ISHMAEL Campoverde Primary Care [...] IBARRA ., DR RICKY Bateman Admitting Unavailable IBRARA ., DR RICKY Bateman Attending Unavailable COLMENARES [...] Hunt Consulting Unavailable NADEREMarilee, DR ISHMAEL Rae Primary Care Unavailable COLMENARES [...] NADERER, DR ISHMAEL Rae Primary Care Unavailable ZIEBER, DR FLEX Hunt Consulting Unavailable NADEREMarilee, DR ISHMAEL Rae Consulting Unavailable COLMENARES ., TERESO Consulting Unavailable IBARRA ., DR RICKY Bateman Admitting Unavailable IBARRA ., DR RICKY Bateman Attending Unavailable NADEREMarilee, DR ISHMAEL Rae Primary Care Unavailable Ishmael Simon MD Primary Care Provider Ishmael Simon MD Primary Care Provider VALENTINO TY Attending Unavailable ALFRED, ISHMAEL VALLEJO Primary Care Unavailabl e VALENTINO TY Referring Unavailable NADERER, ISHMAEL SY Primary Care Unavailabl e AMAODR SON Attending Unavailable NADERER, ISHMAEL [facility] Unavailabl e VALENTINO TY Referring Unavailable AMADOR SON Attending Unavailable NADERER, ISHMAEL WOODARDONY Primary [facility] Unavailabl e NADERER, ISHMAEL SY Primary [facility] Unavailabl e ADRIANA, NAIMA Priest Attending Unavaila ble NADERER, ISHMAEL SY Primary Care Unavailabl e NADERER, ISHMAEL Attending Unavailable NADERER, ISHMAEL Attending Unavailable NADERER, ISHMAEL Attending Unavailable ADRIANA, NAIMA E Referring Unavaila ble NADERER, ISHMAEL [facility] Unavailabl e AMADOR SON Referring Unavailable NADERER, ISHMAEL [facility] Unavailabl e ANA M KUMARI Referring Unavailable NADERER, ISHMAEL [facility] Unavailabl e ANA M KUMARI Referring Unavailable NADERER, ISHMAEL [facility] Unavailabl e AMADOR SON Referring Unavailable NADERER, ISHMAEL [facility] Unavailabl e Medications Current Medications Medication [...] Ordered: 01-Apr-2021 DO Start : 30-Mar-2021 Active [id number] 200 actuat albuterol 0.09 mg/actuat metered dose [...] 07-22-2023 Episodic Other aftercare (1 source) 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 COMPARISON: 08/05/2023 ACCESSION NUMBER(S): [id number] ORDERING CLINICIAN: ANA M KUMARI FINDINGS: Left-sided pacemaker in place. CARDIOMEDIASTINAL SILHOUETTE: Cardiomediastinal silhouette is normal in size and configuration. LUNGS: Lungs are clear. ABDOMEN: No remarkable upper abdominal findings. BONES: No acute osseous changes. IMPRESSION: 1. No evidence of acute cardiopulmonary process. MACRO: None Signed by: Sancho Gross 11/10/2023 8:35 AM Dictation workstation: [id number] [facility] Comment on above: Order Comment: Repor t to [facility] registration on 11/09/2023 at 8:30 AM for chest x-ray and device check prior to appointment with Dr. Son at 10 AM Cardiac Device Check - Remot neeta 09-26-2023 [facility] Work Phone: Radiology Study observation (narrative) [facility] Work Phone: US.doppler Upper extremity v ein - lefton 08-10-2023 Exam negative for acute deep venous thrombosis in the left upper extremity MACRO: None Signed by: Simone Ramos 08/10/2023 3:07 PM Dictation workstation: [id number] [facility] MMODAL Interpreted By: Simone Ramos, STUDY: [facility] US UPPER EXTREMITY VENOUS DUPLEX LEFT; 08/10/2023 2:47 pm INDICATION: Signs/Symptoms: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 COMPARISON: Portable chest 05 August 2023 ACCESSION NUMBER(S): [id number] ORDERING CLINICIAN: NAIMA WRIGHT TECHNIQUE: Vascular ultrasound [...] - 08/10/2023 Interpreted By: Simone Ramos, STUDY: [facility] US UPPER EXTREMITY VENOUS DUPLEX LEFT; 08/10/2023 2:47 pm INDICATION: Signs/Symptoms: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 COMPARISON: Portable chest 05 August 2023 ACCESSION NUMBER(S): [id number] ORDERING CLINICIAN: NAIMA WRIGHT TECHNIQUE: Vascular ultrasound [...] Simone Ramos 08/10/2023 3:07 PM Dictation workstation: [id number] [facility] Work Phone: Radiology Study observation (narrative) [facility] Work Phone: US.doppler Upper extremity v ein - leftOrdered By: Simone Ramos on 08-10-2023 [facility] Work Phone: [facility] US UPPER EXTREMITY VENO US DUPLEX LEFTon 08-10-2023 [facility] US UPPER EXTREMITY VENOUS DUPLEX LEFT Interpreted By: Simone Ramos, STUDY: [facility] US UPPER EXTREMITY VENOUS DUPLEX LEFT; 08/10/2023 2:47 pm INDICATION: Signs/Symptoms: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 COMPARISON: Portable chest 05 August 2023 ACCESSION NUMBER(S): [id number] ORDERING CLINICIAN: NAIMA WRIGHT TECHNIQUE: Vascular ultrasound [...] Simone Ramos 08/10/2023 3:07 PM Dictation workstation: [id number] [facility] Basic metabolic 2000 panelon 08-05-2023 Anion gap [Moles/Vol] 12 mmol/L 10 - 2 0 mmol/L [facility] Calcium [Mass/Vol] 9.6 mg/dL 8.6 - 10. 3 mg/dL [facility] Chloride [Moles/Vol] 102 mmol/L 98 - 10 7 mmol/L [facility] CO2 [Moles/Vol] 29 mmol/L 21 - 32 mmol/L [facility] Creatinine [Mass/Vol] 1.12 mg/dL 0.50 - 1.30 mg/dL [facility] GFR/1.73 sq M.predicted among non-blacks MDRD (S/P/Bld) [Vol rate/Area] 76 mL/min/{1.73_m2} - PINF [facility] Comment on above: Calculations of yang mated GFR are performed using the 2020 CKD-EPI Study Refit equation without the race variable for the IDMS-Traceable creatinine methods. https://jasn.asnjournals.org/content/early//ASN.2020 306573 Glucose [Mass/Vol] 95 mg/dL 74 - 99 mg/dL [facility] Interpretation and review of laboratory results Normal [facility] Potassium [Moles/Vol] 4.0 mmol/L 3.5 - 5.3 mmol/L [facility] Sodium [Moles/Vol] 139 mmol/L 136 - 145 mmol/L [facility] Urea nitrogen [Mass/Vol] 17 mg/dL 6 - 23 mg/dL [facility] Anion gap [Moles/Vol] 12 mmol/L Normal 10-20 [facility] Comment on above: Performed By: #### 2 4321-2 #### JAIMEE QURESHI ([id number]) [facility] ([facility]) [address] [place] [address] 21953 Calcium [Mass/Vol] 9.6 mg/dL Normal 8.6-10.3 [facility] Comment on above: Performed By: #### 2 4321-2 #### GRISELDAIBDEION QURESHI ([id number]) [facility] [address] [place] [address] Chloride [Moles/Vol] 102 mmol/L Normal 98-107 [facility] Comment on above: Performed By: #### 2 4321-2 #### GRISELDAIBDEION QURESHI ([id number]) [facility] [address] [place] [address] CO2 [Moles/Vol] 29 mmol/L Normal 21-32 [facility] Comment on above: Performed By: #### 2 4321-2 #### GRISELDAIBDEION WATTS RIO MACKENZIE ([id number]) [facility]) [address] [place] [address] Creatinine [Mass/Vol] 1.12 mg/dL Normal 0.50-1.30 [facility] Comment on above: Performed By: #### 2 4321-2 #### GRISELDAIBELIBRITTNEY QURESHI ([id number]) [facility]) [address] [place] [address] 94319 Glomerular filtration rate/1.73 sq M.predicted 76 mL/min/1.73m*2 Normal >60 [facility] Comment on above: Result Comment: Calc ulations of estimated GFR are performed using the 2020 CKD-EPI Study Refit equation without the race variable for the IDMS-Traceable creatinine methods. https://jasn.asnjournals.org/content/early/ASN.2020 283818 Performed By: #### 2 4321-2 #### JAIMEE QURESHI ([id number]) [facility] [address] [place] [address] 80678 Glucose [Mass/Vol] 95 mg/dL Normal 74-99 [facility] Comment on above: Performed By: #### 2 4321-2 #### JAIMEE QURESHI ([id number]) [facility] [address] [place] [address] 40861 Potassium [Moles/Vol] 4.0 mmol/L Normal 3.5-5.3 [facility] Comment on above: Performed By: #### 2 4321-2 #### JAIMEE QURESHI ([id number]) [facility]) [address] [place] [address] 19637 Sodium [Moles/Vol] 139 mmol/L Normal 136-145 [facility] Comment on above: Performed By: #### 2 4321-2 #### JAIMEE QURESHI ([id number]) [facility]) [address] [place] [address] 94394 Urea nitrogen [Mass/Vol] 17 mg/dL Normal 6-23 [facility] Comment on above: Performed By: #### 2 4321-2 #### JAIMEE QURESHI ([id number]) [facility] [address] [place] [address] 99485 CBC panel Auto (Bld)on 08-04 Erythrocyte distribution width (RBC) [Ratio] 13.0 % 11.5 - 14.5 % [facility] Hematocrit (Bld) [Volume fraction] 46.9 % 41.0 - 52.0 % [facility] Hemoglobin (Bld) [Mass/Vol] 16.1 g/dL 13.5 - 17.5 g/dL [facility] Interpretation and review of laboratory results Normal [facility] MCH (RBC) [Entitic mass] 31.5 pg 26.0 - 34.0 pg [facility] MCHC (RBC) [Mass/Vol] 34.3 g/dL 32.0 - 36.0 g/dL [facility] MCV (RBC) [Entitic vol] 92 fL 80 - 100 fL [facility] Nucleated RBC/100 WBC (Bld) [Ratio] 0.0 % [facility] Platelets (Bld) [#/Vol] 279 10*3/uL [facility] RBC (Bld) [#/Vol] 5.11 10*6/uL [facility] WBC (Bld) [#/Vol] 8.9 10*3/uL [facility] Erythrocyte distribution width (RBC) [Ratio] 13.0 % Normal 11.5-14.5 [facility] Comment on above: Performed By: #### 5 8410-2 #### JAIMEE QURESHI ([id number]) [facility] ([facility] [address] [place] [address] 16605 Hematocrit (Bld) [Volume fraction] 46.9 % Normal 41.0-52.0 [facility] Comment on above: Performed By: #### 5 8410-2 #### JAIMEE QURESHI ([id number]) [facility] ([facility]) [address] [place] [address] 71510 Hemoglobin (Bld) [Mass/Vol] 16.1 g/dL Normal 13.5-17.5 [facility] Comment on above: Performed By: #### 5 8410-2 #### JAIMEE QURESHI ([id number]) [facility] ([facility]) [address] [place] [address] 04754 MCH (RBC) [Entitic mass] 31.5 pg Normal 26.0-34.0 [facility] Comment on above: Performed By: #### 5 8410-2 #### JAIMEE QURESHI ([id number]) [facility] ([facility]) [address] [place] [address] 93768 MCHC (RBC) [Mass/Vol] 34.3 g/dL Normal 32.0-36.0 [facility] Comment on above: Performed By: #### 5 8410-2 #### JAIMEE QURESHI ([id number]) [facility] ([facility]) [address] [place] [address] MCV (RBC) [Entitic vol] 92 fL Normal 80-100 [facility] Comment on above: Performed By: #### 5 8410-2 #### JAIMEE QURESHI ([id number]) [facility] ([facility]) [address] [place] [address] 28760 Nucleated RBC/100 WBC (Bld) [Ratio] 0.0 /100 WBCs Normal 0.0-0.0 [facility] Comment on above: Performed By: #### 5 8410-2 #### JAIMEE QURESHI ([id number]) [facility] ([facility]) [address] [place] [address] 30242 Platelets (Bld) [#/Vol] 279 x10*3/uL Normal 150-450 [facility] Comment on above: Performed By: #### 5 8410-2 #### JAIMEE QURESHI ([id number]) [facility] ([facility]) [address] [place] [address] 27718 RBC (Bld) [#/Vol] 5.11 x10*6/uL Normal 4.50-5.90 [facility] Comment on above: Performed By: #### 5 8410-2 #### JAIMEE QURESHI ([id number]) [facility] ([facility]) [address] [place] [address] 62448 WBC (Bld) [#/Vol] 8.9 x10*3/uL Normal 4.4-11.3 [facility] Comment on above: Performed By: #### 5 8410-2 #### JAIMEE QURESHI ([id number]) [facility]) [address] [place] [address] 45891 Electrophysiology studyon [facility] Work Phone: PT and aPTT panel Coag (PPP) on 08-05-2023 aPTT Coag (PPP) [Time] 34 s [facility] INR Coag (PPP) [Relative time] 1.0 {INR} 0.9 - 1.1 [facility] Interpretation and review of laboratory results Normal [facility] PT Coag (PPP) [Time] 11.0 s [facility] The APTT is no longer used for monitoring Unfractionated Heparin Therapy. For monitoring Heparin Therapy, use the Heparin Assay. [facility] aPTT Coag (PPP) [Time] 34 s Normal 27-38 [facility] Comment on above: Order Comment: The A PTT is no longer used for monitoring Unfractionated Heparin Therapy. For monitoring Heparin Therapy, use the Heparin Assay. Performed By: #### 3 4529-8 #### JAIMEE QURESHI ([id number]) [facility] ([facility]) [address] [place] [address] 56487 INR Coag (PPP) [Relative time] 1.0 Normal 0.9-1.1 [facility] Comment on above: Order Comment: The A PTT is no longer used for monitoring Unfractionated Heparin Therapy. For monitoring Heparin Therapy, use the Heparin Assay. Performed By: #### 3 4529-8 #### JAIMEE QURESHI ([id number]) [facility]) [address] [place] [address] 84127 PT Coag (PPP) [Time] 11.0 s Normal 9.8-12.8 [facility] Comment on above: Order Comment: The A PTT is no longer used for monitoring Unfractionated Heparin Therapy. For monitoring Heparin Therapy, use the Heparin Assay. 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[employer] Supervisor: Eli Pisano [facility] Gender: M Additional Staff: Height: 162.56 cm Admit Date: Weight: 90.72 kg Admission Status: Outpatient BSA / BMI: 1.96 m2 / 34.33 Department Location: [place] [address] Echo Lab Blood Pressure: 128 /73 mmHg Study Type: TRANSTHORACIC ECHO (TTE) COMPLETE Diagnosis/ICD: Bradycardia, unspecified-R00.1 Indication: Abnormal EKG, Pre-EP CPT Codes: Echo Complete w Full Doppler-58272 Study Detail: The following Echo studies were [...] LA Area A2C: 18.9 cm2 LA [place] [employer] A4C: 5.8 cm LA [place] [employer] A2C: 5.5 cm LA Volume Index: 27.0 [...] 1.3 m/s (0.6-0.9m/s) PV Max P.6 mmHg [id number] Batsheva Morris MD, FACC Electronically signed on 08/05/2023 at 2:30:14 PM Final Normal [facility] US Heart TransthoracicOrdere d By: Batsheva Morris on 08-05-2023 Aortic Valve Area by Continuity of Peak Velocity 2.42 cm2 [facility] Work Phone: Aortic Valve Area by Continuity of VTI 2.62 cm2 [facility] Work Phone: AV mn grad 4.0 mmHg [facility] Work Phone: [phone] AV pk grad 8.2 mmHg [facility] Work Phone: [phone] AV pk abiodun 1.43 m/s [facility] Work Phone: LA vol index A/L 29.3 ml/m2 [facility] Work Phone: LV A4C EF 62.4 [facility] Work Phone: LV biplane EF 60 % [facility] Work Phone: LVIDd 5.28 cm [facility] Work Phone: LVOT diam 2.00 cm [facility] Work Phone: MV avg E/e' ratio 7.78 [facility] Work Phone: MV E/A ratio 0.88 [facility] Work Phone: RV free wall pk S' 15.40 cm/s [facility] Work Phone: RVSP 23.4 mmHg [facility] Work Phone: Tricuspid annular plane systolic excursion 3.6 cm [facility] Work Phone: [facility] Work Phone: US Heart Transthoracicon [address] [address] TRANSTHORACIC ECHOCARDIOGRAM REPORT Patient Name: LILIANA Quiñones Physician: [id number] Batsheva Morris MD, [facility] Study Date: 08/05/2023 Ordering Provider: [id number] ANA M ANGEL MRN/PID: [id number] Fellow: Nurse: Date of /Age: 10 1965 / 58 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 Supervisor: Eli Pisano RDCS Gender: M Additional Staff: Height: 162.56 cm Admit Date: Weight: 90.72 kg Admission Status: Outpatient BSA / BMI: 1.96 m2 / 34.33 Department Location: [facility] kg/m2 Echo Lab Blood Pressure: 128 /73 mmHg Study Type: TRANSTHORACIC ECHO (TTE) COMPLETE Diagnosis/ICD: Bradycardia, unspecified-R00.1 Indication: Abnormal EKG, Pre-EP CPT Codes: Echo Complete w Full Doppler-89948 Study Detail: The following Echo studies were [...] LA Area A2C: 18.9 cm2 [place] [employer] A4C: 5.8 cm LA [employer] A2C: 5.5 cm LA Volume Index: 27.0 [...] not included)... Batsheva Alexander MD - 08/05/2023 [place] [address] TRANSTHORACIC ECHOCARDIOGRAM REPORT Patient Name: LILIANA MICHAELS Reading Physician: [id number] Batsheva Morris MD, [facility] Study Date: 08/05/2023 Ordering Provider: [id number] ANA M ANGEL MRN/PID: [id number] Fellow: Nurse: Date of /Age: 10 1965 Janitorial Services Supervisor: Eli Pisano RDCS Gender: M Additional Staff: Height: 162.56 cm Admit Date: Weight: 90.72 kg Admission Status: Outpatient BSA / BMI: 1.96 m2 / 34.33 Department Location: [place] [address] Echo Lab Blood Pressure: 128 /73 mmHg Study Type: TRANSTHORACIC ECHO (TTE) COMPLETE Diagnosis/ICD: Bradycardia, unspecified-R00.1 Indication: Abnormal EKG, Pre-EP CPT Codes: Echo Complete w Full Doppler-08074 Study Detail: The following Echo studies were [...] LA Area A2C: 18.9 cm2 [place] [employer] A4C: 5.8 cm LA [employer] A2C: 5.5 cm LA Volume Index: 27.0 [...] 1.3 m/s (0.6-0.9m/s) PV Max P.6 mmHg [id number] Batsheva Morris MD, [facility] Electronically signed on 08/05/2023 at 2:30:14 PM Final [facility] Work Phone: XR CHEST 1 VIEWon 08-05-2023 XR CHEST 1 VIEW Interpreted By: Salvatore Clark, STUDY: XR CHEST 1 VIEW INDICATION: Signs/Symptoms:post implant. COMPARISON: None ACCESSION NUMBER(S): [id number] ORDERING CLINICIAN: ANA M KUMARI FINDINGS: No consolidation, effusion, edema, or pneumothorax. Pacemaker placed without pneumothorax. Position satisfactory. IMPRESSION: Status post pacemaker placement. Signed by: Salvatore Clark 08/05/2023 6:10 PM Dictation workstation: [id number] [facility] Comment on above: Order Comment: Vahe heard. XR Chest Single viewon 08-04 Status post pacemaker placement. Signed by: Salvatore Clark 08/05/2023 6:10 PM Dictation workstation: [id number] MMODAL Interpreted By: Salvatore Clark, STUDY: XR CHEST 1 VIEW INDICATION: Signs/Symptoms:post implant. COMPARISON: None ACCESSION NUMBER(S): [id number] ORDERING CLINICIAN: ANA M KUMARI FINDINGS: No consolidation, effusion, edema, or pneumothorax. Pacemaker placed without pneumothorax. Position satisfactory. MMODAL Salvatore Clark MD - 08/05/2023 Interpreted By: Salvatore Clark, STUDY: XR CHEST 1 VIEW INDICATION: Signs/Symptoms:post implant. COMPARISON: None ACCESSION NUMBER(S): [id number] ORDERING CLINICIAN: ANA M KUMARI FINDINGS: No consolidation, effusion, edema, or pneumothorax. Pacemaker placed without pneumothorax. Position satisfactory. IMPRESSION: Status post pacemaker placement. Signed by: Salvatore Clark 08/05/2023 6:10 PM Dictation workstation: [id number] [facility] Work Phone: Radiology Study observation (narrative) [facility] Work Phone: XR Chest Single viewOrdered By: Salvatore Clark on 08-05-2023 [facility] Work Phone: ECG 12 lead (Clinic Performe d)on 07-22-2023 EKG shows marked sinus bradycardia rate of 41 bpm QRS ration 100 ms QT corrected he had a 91 ms. Rhythm strip shows the same pattern. [facility] Work Phone: CT LUNG CANCER SCREENINGon [...] by: BATSHEVA ALVARADO Date: 2022-07-15 12:10 Normal [facility] Office Visit (Cardiology)on 07-14-2022 Follow-up visit [...] we can help. You may also call [phone] for free resources and assistance.; Status:Complete - [...] ischemic evaluation. He underwent cardiac catheterization in [place] which showed no significant obstructive disease 3. [...] BY MOUTH FOUR TIMES A DAY NEEDED Uzwjsf2o at bedtime Singulair 10 MG Oral TabletTAKE [...] Recorded: 14Jul2022 10:57AM Heart Rate34, L Radial Ysotpmez799, LUE, Sitting Xfcyvhjxc34, LUE, Sitting Height5 ft 4 in Qitdkq861 lb BMI Aghslchgvv23.96 kg/m2 BSA Calculated1.92 Tobacco Usea) Yes Patient encouraged to st (more content not included)... Normal [facility] Tobacco Screening.on 023 Adult depression screening assessment No [facility] [employer] DO Work Phone: Fall risk assessment a) No falls within the last year [facility] elastic[employer] DO Work Phone: Tobacco use status [facility] a) Yes [facility] elastic[employer] DO Work Phone: Tobacco Screening. Yes [facility] elastic[employer] DO Work Phone: CT ABD/PELV W CONon [...] by: FLEX JACOBS Date: 2022-06-11 10:06 Normal [facility] CBC AUTO DIFFon 05-07-2022 BASO # 0.1 103/ul Normal 0.0-0.1 [facility] Comment on above: Performed By: #### C BC #### [facility] [address] [place] [address] Dr. Britt Mendoza Basophils/100 WBC (Bld) 1.6 % Normal 0.2-2.0 [facility] Comment on above: Performed By: #### C BC #### [facility] [address] [place] [address] Dr. Britt Mendoza EO # 0.2 103/ul Normal 0.0-0.7 [facility] Comment on above: Performed By: #### C BC #### [facility] [address] [place] [address] Dr. Britt Mendoza Eosinophils/100 WBC (Bld) 3.0 % Normal 0.9-7.0 [facility] Comment on above: Performed By: #### C BC #### [facility] [address] [place] [address] Dr. Britt Mendoza Erythrocyte distribution width (RBC) [Ratio] 12.4 % Normal 11.0-15.0 [facility] Comment on above: Performed By: #### C BC #### [facility] [address] [place] [address] Dr. Britt Mendoza Hematocrit (Bld) [Volume fraction] 43.2 % Normal 42.0-54.0 [facility] Comment on above: Performed By: #### C BC #### [facility] [address] [place] [address] Dr. Britt Mendoza Hemoglobin (Bld) [Mass/Vol] 14.7 g/dL Normal 14.0-18.0 [facility] Comment on above: Performed By: #### C BC #### [facility] [address] [place] [address] Dr. Britt Mendoza IG # 0.11 10e3/ul Critically high 0.00-0.03 [facility] Comment on above: Performed By: #### C BC #### [facility] [address] [place] [address] Dr. Britt Mendoza IG % 1.4 % Critically high 0.0-0.5 [facility] Comment on above: Performed By: #### C BC #### [facility] [address] [place] [address] Dr. Britt Mendoza LYMPH # 1.7 103/ul Normal 1.2-3.[address] [facility] Comment on above: Performed By: #### C BC #### [facility] [address] [place] [address] [address] Britt Mendoza Lymphocytes/100 WBC (Bld) 21.6 % Normal 20.5-60.0 [facility] Comment on above: Performed By: #### C BC #### [facility] [address] [place] [address] [address] Britt Mendoza MANUAL DIFF REQ NO Normal [facility] Comment on above: Performed By: #### C BC #### [facility] [address] [place] [address] Dr. Britt Mendoza MCH (RBC) [Entitic mass] 31.2 pg Normal 25.9-34.0 [facility] Comment on above: Performed By: #### C BC #### [facility] [address] [place] [address] Dr. Britt Mendoza MCHC (RBC) [Mass/Vol] 34.0 g/dL Normal 29.9-35.2 [facility] Comment on above: Performed By: #### C BC #### [facility] [address] [place] [address] Dr. Britt Mendoza MCV (RBC) [Entitic vol] 91.7 fL Normal 80.0-94.0 [facility] Comment on above: Performed By: #### C BC #### [facility] [address] [place] [address] Dr. Britt Mendoza MONO # 0.5 103/ul Normal 0.3-0.8 [facility] Comment on above: Performed By: #### C BC #### [facility] [address] [place] [address] Dr. Britt Mendoza Monocytes/100 WBC (Bld) 6.8 % Normal 1.7-12.0 [facility] Comment on above: Performed By: #### C BC #### [facility] [address] [place] [address] Dr. Britt Mendoza NEUT # 5.0 103/ul Normal 1.4-6.5 [facility] Comment on above: Performed By: #### C BC #### [facility] [address] [address] [address] Britt Mendoza Neutrophils/100 WBC (Bld) 65.6 % Normal 43.0-75.0 [facility] Comment on above: Performed By: #### C BC #### [facility] [address] [address] [address] Britt Mendoza Platelet mean volume (Bld) [Entitic vol] 9.7 fL Normal 9.5-13.[address] [facility] Comment on above: Performed By: #### C BC #### [facility] [address] [address] [address] Britt Mendoza PLT 244 103/ul Normal 150-[address] [facility] Comment on above: Performed By: #### C BC #### [facility] [address] [address] [address] Britt Mendoza RBC 4.71 106/ul Normal 4.70-6.10 [facility] Comment on above: Performed By: #### C BC #### [facility] [address] [address] [address] Britt Mendoza WBC 7.6 103/ul Normal 4.0-11.0 [facility] Comment on above: Performed By: #### C BC #### [facility] [address] [address] [address] Britt Mendoza GLYCOHEMOGLOBIN A1Con 2021 ADA RECOMMENDATION SEE BELOW Normal [facility] Comment on above: Result Comment: ADA RECOMMENDED LIMIT 4.0 - 6.0 ADA THERAPEUTIC TARGET < 7.0 ACTION SUGGESTED > 7.0 Performed By: #### A 1C ####[facility] [address] [id number]. Britt Mendoza Glucose [Mass/Vol] 117 mg/dL Normal [facility] Comment on above: Performed By: #### A 1C ####[facility] [address] [id number]. Britt Mendoza HbA1c (Bld) [Mass fraction] 5.7 % Normal 4.5-6.2 [facility] Comment on above: Performed By: #### A 1C ####[facility] [address] [place], [place] [address]Ev. Britt Mendoza LIPID PROFILEon 05-07-2022 CHOL-HDL RATIO NORM SEE BELOW Normal [facility] Comment on above: Result Comment: 3.3 - 4.4 LOW RISK 4.4 - 7.1 AVERAGE RISK 7.1 - 11.0 MODERATE RISK >11.0 HIGH RISK Performed By: #### B MP, LIVER, LIPID, TSH ####[facility] [address] [id number]. Anjalilan Mendoza Cholesterol [Mass/Vol] 235 mg/dL Critically high <=[address] [facility] Comment on above: Performed By: #### B MP, LIVER, LIPID, TSH ####[facility] [address] [place] [id number]. Anjalilan Mendoza Cholesterol in HDL [Mass/Vol] 40 mg/dL Normal 40-60 [facility] Comment on above: Performed By: #### B MP, LIVER, LIPID, TSH ####[facility] [address] [id number]. Anjalilan Mendoza Cholesterol in LDL [Mass/Vol] 156.8 mg/dL Normal [facility] Comment on above: Performed By: #### B MP, LIVER, LIPID, TSH ####[facility] [address] [place], [place] [address]Ym. Anjalilan Mendoza Cholesterol.total/Viola sterol in HDL [Mass ratio] 5.9 {ratio} Normal [facility] Comment on above: Performed By: #### B MP, LIVER, LIPID, TSH ####[facility] [address] [place] [id number]. Anjalilan Mendoza HDL NORMAL > or = 60 mg/dl - LOW CARDIOVASCULAR RISK <40 mg/dl - HIGH CARDIOVASCULAR RISK Normal [facility] Comment on above: Performed By: #### B MP, LIVER, LIPID, TSH ####[facility] [address] [place] [id number]. Anjalilan Mendoza LDL CALC NORMAL SEE BELOW Normal The [facility] Comment on above: Result Comment: <100 mg/dl OPTIMAL 100 - 129 mg/dl NEAR OR ABOVE OPTIMAL 130 - 159 mg/dl BORDERLINE HIGH 160 - 189 mg/dl HIGH >190 mg/dl VERY HIGH Performed By: #### B MP, LIVER, LIPID, TSH ####[facility] [address] [address]Dr. Britt Mendoza Triglyceride [Mass/Vol] 191 mg/dL Critically high <=[address] [facility] Comment on above: Performed By: #### B MP, LIVER, LIPID, TSH ####[facility] [address] [address]Dr. Britt Mendoza VLDL CALC 38.2 mg/dL Normal [facility] Comment on above: Performed By: #### B MP, LIVER, LIPID, TSH ####[facility] [address] [address]Dr. Britt Mendoza LIVER PROFILEon 05-07-2022 Albumin [Mass/Vol] 3.6 g/dL Normal 3.4-5.0 [facility] Comment on above: Performed By: #### B MP, LIVER, LIPID, TSH ####[facility] [address] [place] [address]Dr. Britt Mendoza Albumin/Globulin [Mass ratio] 1.1 {ratio} Normal [facility] Comment on above: Performed By: #### B MP, LIVER, LIPID, TSH ####[facility] [address] [address]Dr. Britt Mendoza ALP [Catalytic activity/Vol] 84 U/L Normal 46-[address] [facility] Comment on above: Performed By: #### B MP, LIVER, LIPID, TSH ####[facility] [address] [address]Dr. Britt Mendoza ALT [Catalytic activity/Vol] 34 U/L Normal 16-63 [facility] Comment on above: Performed By: #### B MP, LIVER, LIPID, TSH ####[facility] [address] [place] [address]Dr. Britt Mendoza AST [Catalytic activity/Vol] 21 U/L Normal 15-[address] [facility] Comment on above: Performed By: #### B MP, LIVER, LIPID, TSH ####[facility] [address] [place] [id number]. Britt Mendoza BILI, CONJUGATED 0.1 mg/dL Normal 0.0-0.2 [facility] Comment on above: Performed By: #### B MP, LIVER, LIPID, TSH ####[facility] [address] [place] [phone]. Britt Mendoza Bilirubin [Mass/Vol] 0.4 mg/dL Normal 0.2-1.0 [facility] Comment on above: Performed By: #### B MP, LIVER, LIPID, TSH ####[facility] [address] [address]Dr. Britt Mendoza Globulin (S) [Mass/Vol] 3.4 g/dL Normal [facility] Comment on above: Performed By: #### B MP, LIVER, LIPID, TSH ####[facility] [address] [address]Dr. Britt Mendoza Protein [Mass/Vol] 7.0 g/dL Normal 6.4-8.2 [facility] Comment on above: Performed By: #### B MP, LIVER, LIPID, TSH ####[facility] [address] [place] [address]DrAtiya Mendoza PROF CHEM 8 (BAS METB)on Anion gap [Moles/Vol] 13.8 mmol/L Normal [facility] Comment on above: Result Comment: Prev iously reported as: -2.3 On 05/07/2022 13:50 By DM9 Performed By: #### B MP, LIVER, LIPID, TSH #### [facility] [address] [address] [address] Britt Mendoza Calcium [Mass/Vol] 9.2 mg/dL Normal 8.5-10.1 [facility] Comment on above: Performed By: #### B MP, LIVER, LIPID, TSH #### [facility] [address] [address] [address] Britt Mendoza Chloride [Moles/Vol] 99 mmol/L Normal 98-107 [facility] Comment on above: Result Comment: Prev iously reported as: 106 On 05/07/2022 13:50 By DM9 Performed By: #### B MP, LIVER, LIPID, TSH #### [facility] [address] [address] [address] Britt Mendoza CO2 [Moles/Vol] 27.3 mmol/L Normal 21.0-32.0 [facility] Comment on above: Result Comment: Prev iously reported as: 29.2 On 05/07/2022 13:50 By DM9 Performed By: #### B MP, LIVER, LIPID, TSH #### [facility] [address] [address] [address] Britt Mendoza Creatinine [Mass/Vol] 1.12 mg/dL Normal 0.70-1.30 [facility] Comment on above: Performed By: #### B MP, LIVER, LIPID, TSH #### [facility] [address] [address] [address] Britt Mendoza EGFR-AF DJIBOUTIAN >60 Normal >=60 [facility] Comment on above: Performed By: #### B MP, LIVER, LIPID, TSH #### [facility] [address] [address] [address] Britt Mendoza EGFR-NON AF DJIBOUTIAN >60 Normal >=60 [facility] Comment on above: Performed By: #### B MP, LIVER, LIPID, TSH #### [facility] [address] [address] [address] Britt Mendoza Glucose [Mass/Vol] 108 mg/dL Critically high 74-106 T [facility] Comment on above: Performed By: #### B MP, LIVER, LIPID, TSH #### [facility] [address] [address] [address] Britt Mendoza Potassium [Moles/Vol] 4.1 mmol/L Normal 3.5-5.1 [facility] Comment on above: Result Comment: Prev iously reported as: 3.9 On 05/07/2022 13:50 By DM9 Performed By: #### B MP, LIVER, LIPID, TSH #### [facility] [address] [address] [address] Britt Mendoza Sodium [Moles/Vol] 136 mmol/L Normal 136-145 [facility] Comment on above: Result Comment: Prev iously reported as: 129 On 05/07/2022 13:50 By DM9 Performed By: #### B MP, LIVER, LIPID, TSH #### [facility] [address] [address] [address] Britt Mendoza Urea nitrogen [Mass/Vol] 26.0 mg/dL Critically high 7.0-18.0 [facility] Comment on above: Performed By: #### B MP, LIVER, LIPID, TSH #### [facility] [address] [address] [address] Britt Mendoza Urea nitrogen/Creatinine [Mass ratio] 23.2 mg/mg Normal [facility] Comment on above: Performed By: #### B MP, LIVER, LIPID, TSH #### [facility] [address] [address] [address] Britt Mendoza TSHon 05-07-2022 TSH 0.828 uIU/mL Normal 0.358-3.740 [facility] Comment on above: Performed By: #### B MP, LIVER, LIPID, TSH ####[facility] [address] [address]Dr. Britt Mendoza VITAMIN D 25 OHon 05-07-2022 VIT D 25-OH 45.6 ng/mL Normal [facility] Comment on above: Performed By: #### V BRENDAN PSASC #### [facility] [address] [place] [address] Dr. Britt Mendoza VIT D RANGES SEE BELOW Normal [facility] Comment on above: Result Comment: <20 ng/mL Vit D deficient 20 - <30 ng/mL Vit D insufficient 30 - 100 ng/mL Vit D sufficient >100 ng/mL Potential Toxicity Performed By: #### V BRENDAN, PSASC #### [facility] [address] [place] [address] Dr. Britt Mendoza Covid-19 PCR (CVDTBH)on SARS-CoV-2 (COVID-19) RNA KATT+probe Ql (Unsp spec) Detected Critically abnormal NOT DETECTED [facility] Comment on above: Result Comment: This test is not yet approved or cleared by the [place] FDA. When there are no FDA-approved or cleared tests available, and other criteria are met, FDA can make tests available under an emergency access mechanism called an Emergency Use Authorization (EUA). The EUA for this test is supported by the [place] of Health and Human Service's declaration that [...] longer be used). Performed By: #### C [facility] ####[facility] [address] [address]Dr. Britt Mendoza Cardiac Stress Test 2021 Cardiac Stress Test [address], [address] [place] [address] Exercise Stress Test Patient Name: LILIANA MICHAELS JR. Ordering Physician: [id number] Ty MD Study Date: 02/15/2022 Reading Physician: [id number] Ty MD MRN/PID: [id number] Supervising Physician: [id number] Rivera MD Accession/Order#: [id number] Referring Physician: VALENTINO TY Date of : 1965 PCP: Ishmael Simon Gender: M Fellow: Height: 162.56 cm Nurse: Yunior Bhatti RN Weight: 81.65 kg Janitorial Services Supervisor: SAEID BSA: 1.87 m2 Technologist: BMI: 30.90 kg/m2 Additional Staff: Age: 56 years cc report to: Patient Location: cc report to: [id number] Valentino Ty MD Study Type: Cardiac Stress Test Diagnosis/ICD: R94.31-Abnormal electrocardiogram [ECG] [EKG]; R00.1-Bradycardia, unspecified; R06.00-Dyspnea, unspecified Indication: Dyspnea Procedure/CPT: Stress Test Interpretation-[id number] ; Stress Test Supervision-[id number] Falls Risk: Low: Patient has low risk [...] 7. An element of chronotropic incompetency noted. [id number] Valentino Ty MD Electronically signed on 02/16/2022 at 2:52:20 PM Final Normal [facility] Cardiac Stress Test Please click on the link to view the study images [facility] Work Phone: Cardiac Stress Test MP-No rth [facility] 250 DO Work Phone: Office [...] Status:Hold For - Scheduling,Retrospec tive Authorization; Requested for:31Zhr0511; Class 1 obesity with body mass index (BMI) of 30.0 to 30.9 in adult Healthy Weight Tips; Status:Complete - Retrospective Authorization; Done: [id number] Some eating tips that can help you lose weight.; Status:Complete - Retrospective Authorization; Done: [id number] Sinus bradycardia You need to stop smoking. Though it is not easy, more than half of all adult smokers have quit. We encourage you to write down all the reasons you should quit smoking and set a quit date for yourself. Ask us how we can help. You may also call 4-814-OZVCNOW for free resources and assistance.; Status:Complete - Retrospective Authorization; Done: 54Mky5232 SocHx: Current smoker Continue with our present treatment plan.; Status:Complete - Retrospective Authorization; Done: 38Jvj8445 Tobacco Use Screening; Status:Complete; Done: 56Nem3039 Patient Instructions Please bring all medicines, vitamins, [...] This led to a cardiac evaluation in [place] and its not clear to me whether [...] Oral Capsule Delayed ReleaseTAKE 1 CAPSULE Daily Ixooou9n at bedtime Sin (more content not included)... Normal [facility] Tobacco Screening.on 022 Adult depression screening assessment No [facility] 600 DO Work Phone: Fall risk assessment a) No falls within the last year [facility] 600 DO Work Phone: Tobacco use status CPHS a) Yes M [facility] 600 DO Work Phone: Tobacco Screening. Yes [facility] 600 DO Work Phone: Covid-19 PCR (CVDTB)on SARS-CoV-2 (COVID-19) RNA KATT+probe Ql (Unsp spec) Not detected Normal NOT DETECTED [facility] Comment on above: Result Comment: This test is not yet approved or cleared by the [place] FDA. When there are no FDA-approved or cleared tests available, and other criteria are met, FDA can make tests available under an emergency access mechanism called an Emergency Use Authorization (EUA). The EUA for this test is supported by the [place] of Health and Human Service's (HHS's) declaration [...] consistent with SARS-CoV-2. Performed By: #### C VDTB #### [facility] [address] [place] [address] Dr. Britt Mendoza Covid-19 PCR (CVDTB)on 11-07 SARS-CoV-2 (COVID-19) RNA KATT+probe Ql (Unsp spec) Not detected Normal NOT DETECTED [facility] Comment on above: Result Comment: This test is not yet approved or cleared by the [place] FDA. When there are no FDA-approved or cleared tests available, and other criteria are met, FDA can make tests available under an emergency access mechanism called an Emergency Use Authorization (EUA). The EUA for this test is supported by the [place] of Health and Human Service's (HHS's) declaration [...] consistent with SARS-CoV-2. Performed By: #### C [facility] ####[facility] [address] [place], [place] [address]Li. Britt Mendoza XR CHEST 2 Von 10-01-2021 [...] by: FLEX JACOBS Date: 2021-10-01 09:30 Normal [facility] Ambulatory Clinical Summaryo n 03-05-2021 Ambulatory Clinical Summary {[id number]}CD:[id number] Normal [facility] Historical Records Officeon 03-05-2021 Historical Records Office [id number] #[id number]:127 Normal [facility] Patient Educationon 03-05-20 21 Patient Education Urology [...] these instructions at home: Medicines ? Take pouo-utt-exruytg and prescription medicines only as told by [...] your (more content not included)... Normal [facility] Urology Office/Clinic Noteon 03-05-2021 Urology Office/Clinic [...] order. Ordered: Office Visit Level 4 Est 11997 2. Hypogonadism male (E29.1: Testicular hypofunction) noted [...] time. Ordered: Office Visit Level 4 Est 71337 3. BPH with urinary obstruction (N40.1: Benign prostatic hyperplasia with lower urinary tract symptoms) s/p Urolift September 2018. Pt is currently taking no bladder/prostate medication and is mostly satisfied with overall symptom control. has nocturia but attributes this to diuretics. Pt prefers to continue with no changes at this time. PCP checking PSAs per pt. Ordered: Office Visit Level 4 Est 68536 Orders: Urnls Dip Stick Auto w/o Microscopy POC 50842 offered f/u 1 yr but pt prefers PRN. Total time spent reviewing previous notes/results/embossing clerk al documents, preparing the chart, conducting the encounter with the patient and family, ordering tests/medications, and documenting the encounter was 30 minutes. Follow-up With When Contact Information ITA SLOAN, SIMONE Priest [address] [place] [address]- Additional Instructions: Patient Education Erectile Dysfunction Problem [...] inhalation powde (more content not included)... Normal [facility] Comment on above: Result Comment: Elec tronically Signed By: DANIEL MARTINEZ, TOMEKA Priest\.br\Date and Time Signed: 03/05/21 12:24 EDT MRI PELVIS WO CONTRASTon MRI PELVIS WO CONTRAST [facility] Department of Radiology [address] [place] [address] Patient Name: LILIANA MICHAELS : 1965 Sex: M Age: Race: White Pt. Location: 18 Patient Status: Ordered Date: 09/10/2020 3:35:00 PM Completed Date: 10/03/2020 08:34 AM Requesting Provider: SIMONE RUIZ Attending Provider: Report Copy To: Signs & Symptoms: R10.2 Pelvic and perineal pain I10 History: Lenore, Right FOREIGN per clinic will fax HOME [facility] auth# [id number] 09/16/20-10/17/20 cpt code 03683 *mla Comments: Right groin to r/o an [...] spine. Electronically signed: Dinh Miller. Transcribed by: [email or web address], User Resident: Electronically Signed by: DINH MILLER @ 10/03/2020 09:57 AM Normal [facility] Comment on above: Order Comment: Right groin to r/o an adductor tear; iliopsoas bursitis or injury Operative Reporton Operative Report MR#: [id number] S [facility] Pt. Name: Liliana Michaels Room #: [...] Ruiz MD Date Trans: 09/10/2020 11:40 P/mmo DN_JN:[id number] cc: Ishmael Simon M.D. [address] [place] [address] [facility] Coding Summary.on 09-01-2020 Coding Summary. CD:[id number] Gh0bWw+PGhlYWQ+PE1FV UFsW01ykYFfcX0AN4kHH I3MRXTWMJQMJQ0EVS8yl SR5MTukB0IpagDc VvqkrKGqFE66TTs1IJL2 zPziHEvftX4tuJQcK9g2 NxLuJD63fX48WJfaGHEi VkU5ZkZzdaphfGLy G0viQrVynEUnDwl+PHRh YmxlIHdpZHRoPScxMDAl VfDjzWezVP4cTi9qJPKd LWNvbGxhcHNlOiBj u7ikYJIvEOtyUR1ssZyv O3EhxPD2YLOll9o2Nb79 dHI+MEUaSNW2nRmgLOql j390GxOvh7pfWRK6 cYCpGSrrJCZ0Y12jj3P7 WPFcTTAiOMT2uQD6gT7d lXdklvdyP5PmnBFxEbW3 UOY2yHFzcJ7dcEhs jxxqhZ1mDje+V00SJZ6K WICEPI3GCdj5V4InHcnr dHI+AQ59BQVuTO81jCCm sFGsi1nmwZe2QtAn RORjOHK8rHyjEEvgt9Tn DTQaL99zqJFar4K0IVDq fHwchBUhXzQzdDY5fX9q ZYuezmuri6kjndag Fgyfv2dklp50fE81N92m BMjyQZLcHHF2KZKnTGCw wXqgba1suC7bOx9+IDxj d9zkx9vpkXu4VsGu XVCfstMctLqqPGK2g9Ma Mc12S4NhlYnrd1ZhHzv5 du13tIAbc0Y6wPF8BRmi FQOzcB5kAQstOdF4 UUBxWzJyoD92jQYyXTbc Pe5ceUzvfGxeTS6cZKPe whtxYVKpbT4dFFXqjSEn uDeaYP5oADBcodbw y808YrWcVBL5KZXyoGMl B2SdzA2cNhEfAXHnMMKk B2RzaLUxMBndJ891CDia XcW0FMAwceWoS0Fv KUXjjBrsDbR0w8N3Gg1Z q7GnlbuvCFC8MYglVOX4 JmG8CoLyNbR6V7GgYen2 MBFcpMbuJV8vB6Ly AORplkdmfpapeOG3BNKl ZDIbbV12xCQoFVvfHd8d d2I2y546IXByHPQfhR00 Ve8elPmiFUEvgCKG cT0uaxsuj5ccrqaoNkTk TRKeNBd4GTn6FYChaHnw XjEgIKY2CnE1PUJ0uADu tK6eyDkqkdabgN1n Oyc+R08ipH9oKUB2GJL5 lofpDYLtahApYM43FA99 H8UoUvqiyAWkkEA+PGRp loIolBmbJA7jCjAl r1ece9JdRMjwS6JoJKGz VTmsAxw7ALFeMJH6vSQ5 fL5rBOKgUSicu9N3oGA5 X0CqtgPfen8zk3nm XKHlOKdmI44mlFFzf0H3 PESmcRZ2TJQenChiZyGq vB82Yzr+RZTgbIxsm6Vh Iznrw3chx2kybTq7 IjMwJSIgdmFsaWduPSJ0 f7NzFx03I76qFYbaTMDv CSIwUGJfWHGmwYphwz5m cD4aYp2+PGNvbCB3 eBU0wP3vCOJbKcP5KEcu H232KpRmsVRdQtytz1lm h0mfqWo3NtZmLALyxbHs wAvqZLY3d8EyJs16 W98gQAtiCVYnOWXkXYMl XQEbvGkszy7snO9oQt9+ CT1sh7wjrz44yU22rMI+ MTUvXUI0mHvwSCmz UTSlrJ2nGNzwRgS7GEWc LhZgyS65uGSxVTxzSe5o vOtosIqeEG5jTJYbomoa b106VxMqq5zeGGZn vYWiRTqyNPJ8D73vy1N7 FOAxFUWkRIA5aIS0aJ6x bGlnbjogbGVmdDsgdmVy mFgbZNqaRCycX349 IHRvcDsnPlBhdGllbnQg ZaIcDFl8U2KaGff7LXPj fBivAW0wjBShMMskQu0r dBwuuCssYW4pFVPm ivgda127LqNej5biROPa gKXqMBnoPYW7O02fx8W7 UHFrJTTwCEZ8gBI6fY0q bGlnbjogbGVmdDsg pwIuyCivWMcdDOmxS316 IHRvcDsnPkJpcnRoIERh yQV9HG30SS01kIKsa7N0 yHF0Q1OyEJQvxxbq ndagcQF0GLZxLZJaoM08 Mu1uqJnbPq2jSHMoEBS7 PRUazTRpX4JkuT5nLoXo IXUsXUEtW8AguJWk YDbaG352SVslUvQ4KJAs bySaB8EsTONmmMndAeI6 t1U3Nm7JQ7C9UE97YJ85 gYJmi2X6lQN4P0No SKXunfxwujdluAV2WIGm RVPepH89En9crZdsKy3w AWPxCLL2UWGwbFRtV1Ku oD9pNaCgKQRzKBZh I8KtwTOyZNvnB202ADlp MaP0DZEqkgYhG0ZmKJKt lCvtNeA2r5V9La0YKJg6 DH37QE37cAIij5H9 qXY5U6QvYSVtmdouojfq pKP3OJYhDJZvsQ97Wr9v nMbxRw4pPNFkPTM9SGWj zGEfK6QefL0fPgYn CXNuKTRbP9HxeQThWEaj P603COplArA6FNCpncAl U8ZzZYPxzSgdSgS8w7K4 Re1GQVEsQU26VAF0 mLA7PK28LD72S0MoPgdv dGFibGU+PHRhYmxlIHdp ZHRoPScxMDAlJyBzdHls CB3fCy2dIRFlVPYo uJbdhFToDhZpy0rhYIQi WRqvZU8ntZqvX5JmzNC1 EAZlr0b3Ov22X33lQ0Sm dXA+HVBnuZN9zFA6 jD3hNaFaQrI2DSqvP211 NhFocSCgMbfpz1frz8lf xMw5UaB6UJHtxlEztBvp PPG7p1GoQr32C58r IHdpZHRoPSIxNSUiIHZh iLrfif9kdC9yBz5+PGNv kAZ5lUI3sH4mCgYuUzA6 YUxyE779KlLboYPn Xppfo0elq1jrkLd0TwSt BVWiulGziRqiJKS4s1Hn Bt75A0BagYate7YaVja0 sb65iPZyv5C0eDP6 M8QvCYFoceazfZQfhXez WV3iGVVwafdzLUHjzI5u XTUuC6m9ZaPvGdK6HAei A4ZeadW8YUAzgQVg GRauPRG3W24qv9Q1WQQe EKCgNQC1yOA7zW7nsAhh bjogbGVmdDsgdmVydGlj GVzrZUbtF052ZWVe kLtsVUKuyH6cSIPmyNYm aDylNS6hFNVbtorqIqyZ JM0NCwcjIxXQYQlsSUwo dGQ+KXCyFAM5qNll VRtbNOHcmA8jWILhE3k6 UyRyMiW5UCfiU9HyGILw onarFy04qP9mYkJyYzT1 PZvgI2HqkvX4EQVv pCRaPTuaEUL2D52ss8Q4 MWWsNBHbYWF9yCA4kS4o bGlnbjogbGVmdDsgdmVy pTmxYRbgFSfbH273 TWDvaPnyGbOzJdN1BqD9 CtB5T0CxZpk9XWCwoHpd GG4adIUbRUyqMp1khXxi eNcxYJ0cWAFispsq OYGnjO5aJQEicKQbhSel MP0uBREkdfhkr114DpXj WHK3CHRkrBPzW4DxlF9q BfClDQTzSAWcV1Pk oEJkJPrfZ377XNjbXoY1 KWApskCkC2CcPYDxnThj YyR2x3G4Ci61MoOFEHLg czwvdGQ+PHRkIHN0 nMphWJhbJRXzpK5xWUNa T4x9XsHtMdT0VWuiV7Do SEDvibgyYh80wX6xClMg HeE5BBhvA1IgjdH8 ANVntDBvDYcgZBO2R24m u7U3JSBsUGOzPFO2tZW7 iD2frKvvetvusZLdpCle dmVydGljYWwtYWxp S451VZXerOkbDa7neNL5 K7UxBnt0QPPasFisPZ2a uPAbZZoiUv4pxXfulIrk KI2yYSHyufxzXBKm vK7rEMFmxYYltZcdHO3n QCHllaygx272HvYuIKJ1 OCQdmNGnE8IdxO9zJaEb ZBPqWPRmL7PqeYZp PSshD729FKknQpC6ZHCd sbGeV9BnZEUphHbfAiO6 s7L2Gl3CbUOjE2DbX2k1 Z7OsTiraaTK+PC90 JFFrWA84uKHcwWZvv8uc iGf6TrXhMDTtVEU0zAat GLzqv3OtKEDoB05xtLPu h9N8UPEnzUzueBLi VmPkiEL3dC5eBPzjpyfa r0dqaakmIyiha5cjtj37 lA43Z51qWDnoKUQaIAQz NXBqYHSniTyxso1h wZ2cTk2+XHJxkLJ7eTF2 sS5lRbOoIcD5AOwzV445 VnYtfUMdSekbo3euk0qn rUr5JpOuUMOjdvBn eFwcQAL3e9BvIg59I22x IHdpZHRoPSIyMCUiIHZh oBvztz1idB3pWq7+PC9j y4bupw47zD23aYA+ FGKqPLB3rFvnEKhxCOTf zM4sMVxiZtO5CTIhSaTt mE35sRVdKHypQz3joNek pXleYP9yRNLvzkdw m152UaLoi1agKPMiwNHn MWgaVSP9T04uy0H8YPLl ORKpXKK3zUB0kL6lbEtn bjogbGVmdDsgdmVy eWhoEOcoCBmyA781QKFn rTilTkRqtBFwV5pvmpXL GS8yAfkbbXG+PHRkIHN0 cIjoUGonAMClyX1i ESWzM4f2LqCsUvP0XZln E8PxueB1YFGmjOFyUSMf tZVDdF1rpnefm9rtzgdf AzHoGLByUPx9IFx1 DCTbyJbnAmZpBKS3JgF5 GPQ1gXCtvW3frXiwtqpt xS4zUjv+RklOOjwvdGQ+ LTVxVHV3mErbNYvg ETDyvP6uBDRvD8l4OcFy FkN0YMmnN0RnzsP0BEVf hKAgVHTfmXVAlG1drwge v5nuyipnNuSmMWPo DNp8SXc7UQWdeVycYdEy VPM9VjT0WBT6fLDsuK6a kUmhqrthbW4pIcy+TVJO OjwvdGQ+PHRkIHN0 iHabSFjrTIGafZ7cBNTy Q2m8RsXiOqD5BWcaD4Lj oiL6ZZWnePUqMPRcwWLU lW3tgudce8jztpja QgDrRZXiOXk0HQa9SDPe wKedQiQvNHB6BbR0NBZ0 xBSyrG1kyAhjcfaytU7k Oyc+SCR1EVC9ZZ65 DO33P3IoUmpdmQQojLI+ PHRhYmxlIHdpZHRoPScx RXHnEeDbnVxqDO8eBw5t ZGVyLWNvbGxhcHNl OiBj (more content not included)... Normal [facility] Auto Diffon 08-24-2020 Basophils/100 WBC (Bld) 1.0 % Normal 0.0-2.0 [facility] Comment on above: Order Comment: Order Added by Discern Expert. Performed By: #### 1 3365385, 3298362, 1487146, 71564644, 5071672, 9747127, 76308759, 63646770 ####[facility] [address] [place] [address] Basophils/Leukocytes Auto (Bld) [Pure # fraction] 0.1 E9/L Normal 0.0-0.2 [facility] Comment on above: Order Comment: Order Added by Discern Expert. Performed By: #### 1 7042165, 7692695, 1896536, 45820133, 1121952, 6317115, 72964834, 43838100 ####[facility] [address] [place] [address] Eosinophils/100 WBC (Bld) 2.5 % Normal 0.0-8.0 [facility] Comment on above: Order Comment: Order Added by Discern Expert. Performed By: #### 1 6269086, 2913603, 1130985, 24076498, 2364154, 4982735, 73282938, 04261899 ####[address] [place] [address] Eosinophils/Leukocytes Auto (Bld) [Pure # fraction] 0.3 E9/L Normal 0.0-0.5 [facility] Comment on above: Order Comment: Order Added by Discern Expert. Performed By: #### 1 5014471, 9490315, 9832723, 60245246, 3042156, 2149547, 47031114, 67129971 ####[address] [place] [address] Lymphocytes/100 WBC (Bld) 21.0 % Normal 14.0-50.0 [facility] Comment on above: Order Comment: Order Added by Discern Expert. Performed By: #### 1 0048516, 6082610, 2141235, 73256587, 2908369, 5799458, 18115740, 94093366 ####[address] [address] Lymphocytes/Leukocytes Auto (Bld) [Pure # fraction] 2.1 E9/L Normal 1.0-4.0 [facility] Comment on above: Order Comment: Order Added by Discern Expert. Performed By: #### 1 3038441, 3155876, 9411950, 90253808, 9107863, 3892317, 11385163, 86727504 ####[address] [place] [address] Monocytes/100 WBC (Bld) 6.2 % Normal 4.0-14.0 [facility] Comment on above: Order Comment: Order Added by Discern Expert. Performed By: #### 1 8309181, 8067340, 0494609, 30435575, 6657243, 1942300, 97063136, 26645166 ####[address] [place] [address] Monocytes/Leukocytes Auto (Bld) [Pure # fraction] 0.6 E9/L Normal 0.2-1.0 [facility] Comment on above: Order Comment: Order Added by Discern Expert. Performed By: #### 1 4036171, 4759236, 3752261, 15785906, 3354077, 5756822, 52375608, 54548410 ####[facility] [address] [place] [address] Neutrophils/100 WBC (Bld) 69.3 % Normal 36.0-75.0 [facility] Comment on above: Order Comment: Order Added by Discern Expert. Performed By: #### 1 8189621, 2430813, 3755487, 48357351, 3864105, 8121058, 75913456, 11048140 ####[facility] [address] [place] [address] Neutrophils/Leukocytes Auto (Bld) [Pure # fraction] 6.9 E9/L Normal 2.0-7.5 [facility] Comment on above: Order Comment: Order Added by Discern Expert. Performed By: #### 1 5515471, 2845122, 4513395, 31461427, 2719662, 7885167, 54654602, 17002231 ####[facility] [address] [place] [address] BMPon 08-24-2020 Creatinine [Mass/Vol] 1.1 mg/dL Normal 0.5-1.3 [facility] Comment on above: Performed By: #### 1 4609186, 5377582, 7577759, 05031722, 4733829, 5773035, 26355070, 53628278 ####[facility] [address] [place] [address] Urea nitrogen [Mass/Vol] 19 mg/dL Normal 5-21 [facility] Comment on above: Performed By: #### 1 4463228, 6914624, 2428782, 09749588, 4067382, 7885265, 28934533, 62175239 ####[facility] [address] [place] [address] Urea nitrogen/Creatinine [Mass ratio] 17 No Units Normal 10-20 [facility] Comment on above: Performed By: #### 1 7306020, 6376825, 2737261, 52623416, 0638870, 0181912, 59183009, 86857297 ####[facility] [address] [facility] [place] [address] Anion gap [Moles/Vol] 14 mmol/L Normal 6-16 [facility] Comment on above: Performed By: #### 1 9233763, 1863428, 4029089, 60779067, 1371345, 7055475, 97064608, 92298340 ####[facility] [address] [place] [address] Calcium [Mass/Vol] 9.4 mg/dL Normal 8.9-11.1 [facility] Comment on above: Performed By: #### 1 3930895, 6772351, 7879542, 00172800, 6214855, 7107524, 19189356, 12321849 ####[facility] [address] [facility] [place] [address] Chloride [Moles/Vol] 94 mmol/L Low 101-111 [facility] Comment on above: Performed By: #### 1 3850971, 2701438, 4657554, 90976581, 9073628, 9033791, 91547020, 82153274 ####[facility] [address] [facility] [place] [address] CO2 [Moles/Vol] 29 mmol/L Normal 21-31 [facility] Comment on above: Performed By: #### 1 3511455, 1768481, 1901320, 91468620, 1731580, 4214893, 13486939, 42178447 ####[facility] [address] [place] [address] Glucose [Mass/Vol] 103 mg/dL Normal 55-199 [facility] Comment on above: Result Comment: If t his glucose result represents a fasting glucose, interpretation should refer to the following reference range: 55-99 mg/dL Performed By: #### 1 8080464, 0153133, 7058025, 34872811, 5504865, 8486144, 37433614, 76322702 ####[facility] [address] [place] [address] Potassium [Moles/Vol] 4.0 mmol/L Normal 3.5-5.3 [facility] Comment on above: Performed By: #### 1 7041651, 9124867, 4268901, 33753564, 3066588, 7969317, 44663118, 73072788 ####[facility] [address] [place] [address] Sodium [Moles/Vol] 133 mmol/L Low 135-145 [facility] Comment on above: Performed By: #### 1 9040830, 2468044, 6582049, 90193854, 4894770, 3986166, 07286905, 39876565 ####[address] [address] BNPon 08-24-2020 Natriuretic peptide B (Bld) [Mass/Vol] 17 pg/mL Normal 5-80 [facility] Comment on above: Performed By: #### 1 3643550, 4091771, 2811315, 00132308, 7759041, 8497723, 44798780, 83758559 ####[address] [address] CBC w/ Auto Diffon Erythrocyte distribution width (RBC) [Ratio] 12.9 % Normal 10.9-14.2 [facility] Comment on above: Performed By: #### 1 1380123, 0249862, 2890800, 81565475, 0930442, 7969664, 50844644, 03365655 ####[address] [place] [address] Hematocrit (Bld) [Volume fraction] 44.4 % Normal 37.7-49.0 [facility] Comment on above: Performed By: #### 1 5885194, 4207152, 8351993, 69621937, 6384536, 2976311, 77043523, 67061649 ####[facility] [address] [place] [address] Hemoglobin (Bld) [Mass/Vol] 15.3 g/dL Normal 13.5-17.5 [facility] Comment on above: Performed By: #### 1 0884409, 1587826, 8324675, 12702304, 1729741, 4319148, 15394682, 89276055 ####[facility] [address] [place] [address] MCH (RBC) [Entitic mass] 31.5 pg Normal 27.0-34.0 [facility] Comment on above: Performed By: #### 1 3528211, 4766206, 3800992, 78706370, 5073157, 6990369, 29866123, 19300089 ####[address] [address] MCHC (RBC) [Mass/Vol] 34.4 g/dL Normal 31.4-36.0 [facility] Comment on above: Performed By: #### 1 1486740, 0563890, 4145301, 57167430, 9549595, 7269579, 01471789, 39973277 ####[address] [address] MCV (RBC) [Entitic vol] 91.6 fL Normal 80.0-100.0 [facility] Comment on above: Performed By: #### 1 5908683, 9353159, 4594477, 46033947, 8439696, 1804188, 15811281, 89420694 ####[address] [place] [address] Platelet mean volume (Bld) [Entitic vol] 8.4 fL Normal 6.4-10.8 [facility] Comment on above: Performed By: #### 1 1779242, 5082959, 9123167, 06791865, 0580097, 3627864, 68415829, 77355457 ####[facility] [address] [place] [address] Platelets (Bld) [#/Vol] 289.0 E9/L Normal 150.0-500.0 [facility] Comment on above: Performed By: #### 1 3663591, 6847942, 1689607, 84042830, 2945562, 5628136, 99470539, 25511111 ####[facility] [address] [place] [address] RBC (Bld) [#/Vol] 4.8 E12/L Normal 4.3-5.9 [facility] Comment on above: Performed By: #### 1 0593227, 5713920, 3480003, 73780322, 0973219, 5692712, 66182392, 44741767 ####[address] [place] [address] WBC corrected for nucl RBC Auto (Bld) [#/Vol] 9.9 E9/L Normal 4.0-11.0 [facility] Comment on above: Performed By: #### 1 8565122, 3948006, 3406969, 00869353, 8669883, 9342977, 95587195, 31963823 ####[address] [place] [address] CTA Cheston 08-24-2020 CTA Chest Exam Date/Time: [...] 370 Contrast amount in ml's: 78 Normal [facility] Consent for Treatmenton 08-07 Consent for Treatment [id number] #1.00CD:127 Normal [facility] D-Dimeron 08-24-2020 Fibrin D-dimer FEU (PPP) [Mass/Vol] 845 ng/mL Abnormal 215-500 [facility] Comment on above: Result Comment: Resu lts [...] infections Liver cirrhosis Performed By: #### 1 1191094, 0864054, 8244864, 35837803, 6466170, 2024858, 20986932, 94036125 ####[facility] [address] [place] [address] Discharge Instructionson Discharge Instructions [id number] #1.00CD:127 Normal [facility] ED Clinical Summaryon 2020 ED Clinical Summary [address] [address] ED Clinical Summary Person Information Name: LILIANA MICHAELS [place] Age: 55 Years : 1965 Sex: Male Language: Uzbek PCP: SIMONE JEAN BAPTISTE DC Marital Status: Single Phone: [phone] Visit Id: Visit Reason: Rib/trunk pain-swelling; SIDE [...] 08/24/2020 03:27:58 08/24/2020 03:27:58 08/24/2020 03:27:58 ADDRESS: [address] [place] [id number] PHYS DOC NOTES: MEDICAL INFORMATION: Prescriptions Given: New Medications [id number], [address] [place], [place] [id number], [phone] azithromycin (Zithromax TRI-AMIRA 500 mg oral tablet) [...] Address: When: SIMONE JEAN BAPTISTE [address] [place] [id number] Business (1) In 1 day 08/25/2020 Comments: Patient is advised to follow-up with his primary care physician in 1 to 2 days. He is also advised to come back to the emergency department if symptoms get worse. DIAGNOSIS: 1:Rib pain on left side Normal [facility] ED Note-Physicianon 08-25-19 ED Note-Physician Basic Information [...] 08/24/20 2:30:00 EDT Rapid COVID Antigen ([facility]) Orders: albuterol-ipratropiu m, 3 mL, Soln-Inh, Inhalation, Once, Stop date 08/24/20 0:16:00 EDT, STAT, Start date 08/24/20 0:16:00 EDT azithromycin, 500 mg = 1 tab(s), Oral, Daily, # 3 tab(s), Refills(s) 0, Pharmacy: [id number], 163, cm, 08/24/20 0:04:00 EDT, Height/Length Dosing, 101, kg, 08/24/20 0:04:00 EDT, Weight Dosing famotidine, 20 mg = 1 tab(s), Tab, Oral, Once, Stop date 08/24/20 0:17:00 EDT, STAT, Start date 08/24/20 0:17:00 EDT lidocaine topical, 1 patch(es), Topical, Daily, 7 patch(es), Refill(s) 0, apply 12 hours on and 12 hours off daily, [facility]pharm[facility] #[id number], 163, cm, 08/24/20 0:04:00 EDT, Height/Length Dosing, 101, kg, 08/24/20 0:04:00 EDT, Julian (more content not included)... Normal [facility] Comment on above: Result Comment: Elec [...] at once. Call your local emergency services (430 in [place] Do not drive yourself to the hospital. MAKE SURE YOU: ? Understand these instructions. ? Will watch your condition. ? Will get help right away if you are not doing well or get worse. Document Released: 02/02/2006 Document Revised: 04/30/2014 Document Reviewed: 11/28/2008 ExitCare? Patient Information ?2015 [employer]. This information is not intended to replace advice given to you by your health care provider. Make sure you discuss any questions you have with your health care provider. Normal [facility] ED Patient Summaryon 021 ED Patient Summary [address] [address] Patient Discharge Instructions Person Information Name: LILIANA MICHAELS Age: 55 Years Arrival Date: 08/23/2020 23:48:11 Discharge Diagnosis: 1:Rib pain on left side Primary Care Physician: SIMONE JEAN BAPTISTE DC Provider Information Primary Provider: David Palacio MD Advanced Manager Ent:None The exam and treatment you received in the Emergency Department were for an urgent problem and are not intended as complete care. It is important that you follow up with a doctor, nurse practitioner, or physician?s lead assistant manager for ongoing care. If your symptoms become worse or you do not improve as expected and you are unable to reach your usual health care provider, you should return to the Emergency Department. We are available 24 hours a day. LILIANA MICHAELS Cem has been given the following list of patient education materials, prescriptions and follow-up instructions: Follow-up Instructions: With: Address: When: SIMONE JEAN BAPTISTE [address] [place] [address] Business (1) In 1 day 08/25/2020 Comments: [...] opioids can be used to help relieve emtbyzle-tx-byoxgf pain and are often prescribed following a [...] be struggling (more content not included)... Normal [facility] PT & PTTon 08-24-2020 aPTT Coag (PPP) [Time] 30.2 second(s) Normal 25.1-36.5 [facility] Comment on above: Result Comment: Hepa rin therapeutic range (represented by Anti-Factor Xa activity of 0.2 - 0.4 U/mL) corresponds to PTT of 56.6 - 109.0 sec. Performed By: #### 1 0788833, 4359972, 2754978, 54809128, 0149677, 5057374, 12098919, 88903722 ####[facility] [address] [place] [address] INR Coag (PPP) [Relative time] 1.0 {INR} Invalid Interpretation Code [facility] Comment on above: Result Comment: INR results are specifically intended to assess patients stabilized on long-term Anticoagulation therapy suggested INR?s ?Less Intensive Anticoagulation? 2.0 ? 3.0 Conventional Range 3.0 ? 4.5 Performed By: #### 1 7584670, 5486842, 0514467, 55953852, 5087985, 2252664, 34131483, 57804269 ####[facility] [address] [place] [address] PT Coag (PPP) [Time] 11.6 second(s) Normal 10.2-12.9 [facility] Comment on above: Performed By: #### 1 1233323, 1722360, 9054327, 48262248, 2928974, 6640985, 83063633, 97285159 ####[facility] [address] [place] [address] RAD - Preliminary Cat Scan R eporton 08-24-2020 RAD - Preliminary Cat Scan Report [id number] #1.00CD:127 Normal [facility] Rapid COVID Antigen ([facility])on 08-24-2020 Rapid COV Int NEG Ctl Pass Normal Fis her [facility] Comment on above: Performed By: #### 2 [id number] ####[facility] [address] [place] [address] Rapid COV Int POS Ctl Pass Normal Fis [facility] Comment on above: Performed By: #### 2 [id number] ####[address] [place] [address] SARS-CoV-2 (COVID-19) RNA KATT+probe Ql (Unsp spec) Not detected Normal Not Detected [facility] Comment on above: Result Comment: The [email or web address]? System for Rapid Detection of SARS-CoV-2 is [...] or revoked sooner. Performed By: #### 2 [id number] ####[address] [place] [address] Employed in Healthcare NO Normal [facility] Comment on above: Performed By: #### 2 [id number] ####[address] [place] [address] First Test Unknown [facility] Comment on above: Performed By: #### 2 [id number] ####[address] [facility] [place] [address] Hospitalized? NO Normal [facility] Comment on above: Performed By: #### 2 [id number] ####[address] [facility] [place] [address] ICU NO [facility] Comment on above: Performed By: #### 2 172649784 ####[address] [facility] [place] [address] ? NO [facility] Comment on above: Performed By: #### 2 [id number] ####[address] [facility] [place] [address] Resides in a Congregate Care Setting NO [facility] Comment on above: Performed By: #### 2 [id number] ####[address] [facility] [place] [address] Symptomatic as defined by [facility] YES [facility] Comment on above: Performed By: #### 2 [id number] ####[facility] [address] [place] [address] Troponin 0 Hr.on 08-24-2020 Troponin I.cardiac [Mass/Vol] 4.10 pg/mL Low 15.90-38.40 [facility] Comment on above: Result Comment: The 95% CI (Confidence Interval) PPV (Positive Predictive Value) for myocardial infarction in females is 38 pg/mL, in males 51 pg/mL. The results should be used in conjunction with clinical conditions of myocardial infarction. (Access High Sensitivity Troponin I Instructions For Use, [employer], December 2017) Performed By: #### 1 9330683, 5998042, 2092185, 05256888, 3284073, 5944025, 41711476, 77347568 ####[facility] [address] [place] [address] Troponin 3 Hr.on 08-24-2020 Troponin I.cardiac [Mass/Vol] 4.40 pg/mL Low 15.90-38.40 [facility] Comment on above: Result Comment: The 95% CI (Confidence Interval) PPV (Positive Predictive Value) for myocardial infarction in females is 38 pg/mL, in males 51 pg/mL. The results should be used in conjunction with clinical conditions of myocardial infarction. (Access High Sensitivity Troponin I Instructions For Use, [employer], December 2017) Performed By: #### 1 [id number] ####[facility] [address] [place] [address] XR Chest Single Viewon 08-24 XR Chest [...] V. Transcribed by: VIVIAN Technologist: DAT Perry [facility] eGFRon 08-24-2020 GFR/1.73 sq M.predicted among blacks MDRD (S/P/Bld) [Vol rate/Area] mL/min/{1.73_m2} Normal >=59 [facility] Comment on above: Order Comment: Order added by Discern Expert. Result Comment: eGFR is race adjusted. AA=. Performed By: #### 1 2266250, 6504794, 8958964, 97519514, 7818559, 2877397, 91032560, 72542291 ####[facility] [address] [place] [address] GFR/1.73 sq M.predicted among non-blacks MDRD (S/P/Bld) [Vol rate/Area] mL/min/{1.73_m2} Normal >=59 [facility] Comment on above: Order Comment: Order added by Discern Expert. Result Comment: Brim Molder jeniffer kidney disease could be indicated at eGFR's of less than 60 mL/min/1.73m2. Kidney failure is indicated at less than 15 mL/min/1.73m2. Performed By: #### 1 0640388, 1424418, 6291345, 82656990, 9797181, 9618216, 01420316, 01185802 ####[facility] [address] [place] [address] HIP RIGHT 1 OR 2 VWS WITH PE LVISon 07-24-2020 HIP RIGHT 1 OR 2 VWS WITH PELVIS [facility] Department of Radiology [address] [place] [phone] Patient Name: LILIANA MICHAELS : 1965 [...] Electronically signed: Ana M Mariee. Transcribed by: [email or web address], User Resident: Electronically Signed by: ANA M MARIEE @ 07/24/2020 10:01 AM Normal [facility] Comment on above: Order Comment: Views (X-RAY, HIP): Radiologic Protocol HIP RIGHT 1 OR 2 VWS WITH PE LVISon 04-24-2020 HIP RIGHT 1 OR 2 VWS WITH PELVIS [facility] Department of Radiology [address] [place] [phone] Patient Name: LILIANA MICHAELS : 1965 Sex: M Age: Race: White Pt. Location: Patient Status: D Ordered Date: 04/24/2020 10:40:00 AM Completed Date: 04/24/2020 10:48 AM Requesting Provider: JEY ELISE Attending Provider: Report Copy To: Signs & Symptoms: Z96.641 Presence of right artificial hip joint I10 History: [place] Comments: Views (X-RAY, HIP): Radiologic Protocol Exam: HIP RIGHT 1 OR 2 VWS WITH PELVIS HIP RIGHT 1 OR 2 VWS WITH PELVIS HISTORY: Hip replacement, follow-up. COMPARISON: 03/14/2020. IMPRESSION: 1. Redemonstrated hip prosthesis, no hardware complication or acute abnormality. Electronically signed: Ed España. Transcribed by: [email or web address], User Resident: Electronically Signed by: ED ESPAÑA @ 04/25/2020 08:22 AM Normal [facility] Comment on above: Order Comment: Views (X-RAY, HIP): Radiologic Protocol Operative Reporton 0 Operative Report MR#: [id number] [facility] Pt. Name: Liliana Michaels Room #: 6AB 510170 Discharge 03/15/2020 Date: Birthdate: 1965 OPERATIVE REPORT [...] a (more content not included)... Normal [facility] BASIC METABOLIC PANELon 11-0 Calcium [Mass/Vol] 8.8 mg/dL Normal 8.6-10.3 [facility] Comment on above: Order Comment: Views (X-RAY, HIP): Radiologic Protocol Performed By: #### 0 0071 ####[facility] [place] [address], [facility] Chloride [Moles/Vol] 98 mmol/L Normal 98-107 [facility] Comment on above: Order Comment: Views (X-RAY, HIP): Radiologic Protocol Performed By: #### 0 0071 ####[facility] [place] [address], [facility] CO2 [Moles/Vol] 30 mmol/L Normal 21-31 [facility] Comment on above: Order Comment: Views (X-RAY, HIP): Radiologic Protocol Performed By: #### 0 0071 ####[facility] [place] [address], [facility] Creatinine [Mass/Vol] 0.96 mg/dL Normal 0.70-1.30 [facility] Comment on above: Order Comment: Views (X-RAY, HIP): Radiologic Protocol Performed By: #### 0 0071 ####[facility] [place] [address], [facility] GFR/1.73 sq M.predicted among blacks MDRD (S/P/Bld) [Vol rate/Area] mL/min/{1.73_m2} Normal >60 [facility] Comment on above: Order Comment: Views (X-RAY, HIP): Radiologic Protocol Performed By: #### 0 0071 ####[facility] [place] [address], [facility] GFR/1.73 sq M.predicted among non-blacks MDRD (S/P/Bld) [Vol rate/Area] mL/min/{1.73_m2} Normal >60 [facility] Comment on above: Order Comment: Views (X-RAY, HIP): Radiologic Protocol Performed By: #### 0 0071 ####[facility] [place] [address], [place] Glucose [Mass/Vol] 151 mg/dL High 70-100 [facility] Comment on above: Order Comment: Views (X-RAY, HIP): Radiologic Protocol Performed By: #### 0 0071 ####[facility] [place] [address], [place] Potassium [Moles/Vol] 4.4 mmol/L Normal 3.5-5.1 [facility] Comment on above: Order Comment: Views (X-RAY, HIP): Radiologic Protocol Performed By: #### 0 0071 ####[facility] [place] [place] [address], [facility] Sodium [Moles/Vol] 133 mmol/L Low 136-145 [facility] Comment on above: Order Comment: Views (X-RAY, HIP): Radiologic Protocol Performed By: #### 0 [id number] ####[facility] Urea nitrogen [Mass/Vol] 20 mg/dL Normal 7-25 [facility] Comment on above: Order Comment: Views (X-RAY, HIP): Radiologic Protocol Performed By: #### 0 0071 ####[facility] CBC COMPLETE BLOOD COUNTon 05-15-2019 Erythrocyte distribution width (RBC) [Ratio] 12.2 % Normal 11.5-15.0 [facility] Comment on above: Order Comment: No: D o not add to previous draw Performed By: #### 5 [id number] #### [facility] [address] [facility] [place] [address], [facility] Hematocrit (Bld) [Volume fraction] 42.2 % Normal 39.0-50.0 [facility] Comment on above: Order Comment: No: D o not add to previous draw Performed By: #### 5 0608 #### [facility] [address] [place] [address], [place] Hemoglobin (Bld) [Mass/Vol] 13.9 g/dL Normal 13.0-17.0 [facility] Comment on above: Order Comment: No: D o not add to previous draw Performed By: #### 5 0608 #### [facility] [address] [place] [address], [facility] MCH (RBC) [Entitic mass] 31.4 pg Normal 27.0-33.0 [facility] Comment on above: Order Comment: No: D o not add to previous draw Performed By: #### 5 0608 #### [facility] [address] [place] [address], [facility] MCHC (RBC) [Mass/Vol] 32.9 g/dL Normal 32.0-35.0 [facility] Comment on above: Order Comment: No: D o not add to previous draw Performed By: #### 5 0608 #### [facility] [address] [place] [id number], [facility] MCV (RBC) [Entitic vol] 95.5 fL Normal 82.0-98.0 T [facility] Comment on above: Order Comment: No: D o not add to previous draw Performed By: #### 5 0608 #### [facility] [address] [place] [address], [facility] Nucleated RBC/100 WBC (Bld) [Ratio] 0 % Normal 0-0 [facility] Comment on above: Order Comment: No: D o not add to previous draw Performed By: #### 5 0608 #### [facility] [address] [place] [id number], [facility] PLAT CNT 254 10*3/uL Normal 150-400 [facility] Comment on above: Order Comment: No: D o not add to previous draw Performed By: #### 5 0608 #### [facility] 3000 [facility]. [place] [id number], [facility] RBC (Bld) [#/Vol] 4.42 10*6/uL Normal 4.20-5.70 [facility] Comment on above: Order Comment: No: D o not add to previous draw Performed By: #### 5 0608 #### [facility] [address] [place] [id number], [facility] WBC (Bld) [#/Vol] 14.44 10*3/uL High 4.00-10.60 [facility] Comment on above: Order Comment: No: D o not add to previous draw Performed By: #### 5 0608 #### [facility] 3000 [facility]. [address] POC GLUCOSE LABon 03-15-2020 Glucose [Mass/Vol] 193 mg/dL High 70-100 [facility] Comment on above: Performed By: #### 8 [id number] #### [facility] [address] CBC W/DIFFon 03-14-2020 ABS IMM GRANS 0.2 10*3/uL Normal 0.0-0.2 [facility] Comment on above: Performed By: #### 5 0103 ####[facility] ABS NEUTROPHILS 8.0 10*3/uL High 1.6-7.6 [facility] Comment on above: Performed By: #### 5 0103 ####[facility] Basophils (Bld) [#/Vol] 0.1 10*3/uL Normal 0.0-0.2 [facility] Comment on above: Performed By: #### 5 0103 ####[facility]3000 [facility].[address] Basophils/100 WBC (Bld) 1.1 % High 0.0-1.0 T [facility] Comment on above: Performed By: #### 5 0103 ####[facility]3000 [place] [address], [facility] Eosinophils (Bld) [#/Vol] 0.3 10*3/uL Normal 0.0-0.5 [facility] Comment on above: Performed By: #### 5 0103 ####[facility]3000 [facility] [place] [address], [facility] Eosinophils/100 WBC (Bld) 2.7 % Normal 0.0-6.0 [facility] Comment on above: Performed By: #### 5 0103 ####[facility]3000 [facility].[address] Erythrocyte distribution width (RBC) [Ratio] 12.3 % Normal 11.5-15.0 [facility] Comment on above: Performed By: #### 5 3 ####[facility]3000 [place] [address], [facility] Hematocrit (Bld) [Volume fraction] 50.5 % High 39.0-50.0 [facility] Comment on above: Performed By: #### 102 ####[address] Hemoglobin (Bld) [Mass/Vol] 17.3 g/dL High 13.0-17.0 [facility] Comment on above: Performed By: #### 102 ####[place] [address] [facility].[address] IMMATURE GRANS 1.4 % High 0.0-1.0 [facility] Comment on above: Performed By: #### 3 ####[facility]3000 [place] [address], [facility] Lymphocytes (Bld) [#/Vol] 1.8 10*3/uL Normal 1.2-4.0 [facility] Comment on above: Performed By: #### 5 3 ####[address] [place] [address], [facility] Lymphocytes/100 WBC (Bld) 15.6 % Low 20.0-45.0 [facility] Comment on above: Performed By: #### 3 ####[facility] MCH (RBC) [Entitic mass] 31.7 pg Normal 27.0-33.0 [facility] Comment on above: Performed By: #### 5 0103 ####[facility] MCHC (RBC) [Mass/Vol] 34.3 g/dL Normal 32.0-35.0 [facility] Comment on above: Performed By: #### 5 0103 ####[facility] MCV (RBC) [Entitic vol] 92.7 fL Normal 82.0-98.0 T [facility] Comment on above: Performed By: #### 5 0103 ####[facility] Monocytes (Bld) [#/Vol] 0.9 10*3/uL Normal 0.1-1.0 [facility] Comment on above: Performed By: #### 5 0103 ####[facility] MONOS 8.2 % Normal 5.0-12.0 [facility] Comment on above: Performed By: #### 5 0103 ####[facility] Neutrophils/100 WBC (Bld) 71.0 % Normal 40.0-72.0 [facility] Comment on above: Performed By: #### 5 0103 ####[facility] Nucleated RBC/100 WBC (Bld) [Ratio] 0 % Normal 0-0 [facility] Comment on above: Performed By: #### 5 3 ####[facility] PLAT CNT 301 10*3/uL Normal 150-400 [facility] Comment on above: Performed By: #### 5 0103 ####[facility]3000 [place] [address], [facility] RBC (Bld) [#/Vol] 5.45 10*6/uL Normal 4.20-5.70 [facility] Comment on above: Performed By: #### 5 0103 ####[facility] [place] [address], [facility] WBC (Bld) [#/Vol] 11.22 10*3/uL High 4.00-10.60 [facility] Comment on above: Performed By: #### 5 0103 ####[facility]3000 [facility].[address] HIP RIGHT 1 OR 2 VWS WITH PE LVISon 03-14-2020 HIP RIGHT 1 OR 2 VWS WITH PELVIS [facility] Department of Radiology [address] [place] [address] Patient Name: LILIANA MICHAELS : 1965 Sex: M Age: Race: White Pt. Location: OUTP Patient Status: O Ordered Date: 03/14/2020 6:40:00 AM Completed Date: 03/14/2020 10:47 AM Requesting Provider: JEY ELISE Attending Provider: JEY ELISE Report Copy To: Signs & Symptoms: RT FOREIGN History: Comments: RT FOREGIN Exam: HIP RIGHT 1 OR 2 VWS [...] purposes Electronically signed: Aria Steinberg. Transcribed by: [email or web address], User Resident: Electronically Signed by: ARIA STEINBERG @ 03/14/2020 03:44 PM Normal [facility] Comment on above: Order Comment: RT TH A POC GLUCOSE LABon 03-14-2020 Glucose [Mass/Vol] 222 mg/dL High 70-100 [facility] Comment on above: Performed By: #### 8 [id number] #### [facility] [address] [place] [address], [facility] Glucose [Mass/Vol] 217 mg/dL High 70-100 [facility] Comment on above: Performed By: #### 8 [id number] ####[facility] [place] [address], [place] Glucose [Mass/Vol] 141 mg/dL High 70-100 [facility] Comment on above: Performed By: #### 8 [id number] #### [facility] [address] [place] [address], [place] PORTABLE HIP RIGHT 1 OR 2 VW S WITH PELVISon 03-14-2020 PORTABLE HIP RIGHT 1 OR 2 VWS WITH PELVIS [facility] Department of Radiology [address] [place] [id number] Patient Name: LILIANA MICHAELS : 1965 Sex: [...] air Electronically signed: Aria Steinberg. Transcribed by: [email or web address], User Resident: Electronically Signed by: ARIA STEINBERG @ 03/14/2020 03:46 PM Normal [facility] Comment on above: Order Comment: Hardw are Evaluation, AP/Lateral TYPE AND SCREENon 03-14-2020 ABO INTERPRETATION O Normal [facility] Comment on above: Performed By: #### 6 2586 ####[facility] [place] [address], [facility] RH INTERPRETATION Positive Normal [facility] Comment on above: Performed By: #### 6 2586 ####[facility] Vital Signs Date Time Vital Sign Value Performing Clinician Facility 08-10-2023 13:31-0400 Body height 162.6 cm Amador Son MD Work Phone: [facility] 08-10-2023 13:31-0400 Body mass index (BMI) [Ratio] 34.67 kg/m2 Amador Son MD Work Phone: [facility] 08-10-2023 13:31-0400 Body weight 91.63 kg Amador Son MD Work Phone: [facility] 08-10-2023 13:31-0400 Diastolic blood pressure 70 mm[Hg] Amador Son MD Work Phone: [facility] 08-10-2023 13:31-0400 Heart rate 69 /min Amador Son MD Work Phone: [facility] 08-10-2023 13:31-0400 Systolic blood pressure 116 mm[Hg] Amador Son MD Work Phone: [facility] 08-05-2023 17:30-0400 Diastolic blood pressure 67 mm[Hg] Amador Son MD Work Phone: [facility] 08-05-2023 17:30-0400 Heart rate 60 /min Amador Son MD Work Phone: [facility] 08-05-2023 17:30-0400 Respiratory rate 16 /min Amador Son MD Work Phone: [facility] 08-05-2023 17:30-0400 SaO2% (BldA) [Mass fraction] 96 % Amador Son MD Work Phone: [facility] 08-05-2023 17:30-0400 Systolic blood pressure 112 mm[Hg] Amador Son MD Work Phone: [facility] 08-05-2023 12:13-0400 Body height 162.6 cm Amador Son MD Work Phone: [facility] 08-05-2023 12:13-0400 Body mass index (BMI) [Ratio] 34.17 kg/m2 Amador Son MD Work Phone: [facility] 08-05-2023 12:13-0400 Body temperature 97.5 [degF] Amador Son MD Work Phone: [facility] 08-05-2023 12:13-0400 Body weight 90.3 kg Amador Son MD Work Phone: [facility] 07-22-2023 14:38-0400 Body height 162.6 cm Amador Son MD Work Phone: [facility] 07-22-2023 14:38-0400 Body mass index (BMI) [Ratio] 34.33 kg/m2 Amador Son MD Work Phone: [facility] 07-22-2023 14:38-0400 Body weight 90.72 kg Amador Son MD Work Phone: [facility] 07-22-2023 14:38-0400 Diastolic blood pressure 90 mm[Hg] Amador Son MD Work Phone: [facility] 07-22-2023 14:38-0400 Heart rate 41 /min Amador Son MD Work Phone: [facility] 07-22-2023 14:38-0400 Systolic blood pressure 138 mm[Hg] Amador Son MD Work Phone: [facility] 07-14-2022 10:57-0500 Body height 162.56 cm Ishmael Simon Work Phone: [facility] 600 DO Work Phone: 07-14-2022 10:57-0500 Body mass index (BMI) [Ratio] 32.96 kg/m2 Ishmael Simon Work Phone: [facility] 600 DO Work Phone: 07-14-2022 10:57-0500 Body surface area Derived from formula 1.92 m2 Ishmael A Naderer Work Phone: [facility] 600 DO Work Phone: 07-14-2022 10:57-0500 Body weight 87.09 kg Ishmael A Naderer Work Phone: [facility] 600 DO Work Phone: 07-14-2022 10:57-0500 Diastolic blood pressure 64 mm[Hg] Ishmael A Naderer Work Phone: [facility] 600 DO Work Phone: 07-14-2022 10:57-0500 Heart rate 34 /min Ishmael A Naderer Work Phone: [facility] 600 DO Work Phone: 07-14-2022 10:57-0500 Systolic blood pressure 118 mm[Hg] Ishmael A Naderer Work Phone: [facility] 600 DO Work Phone: 01-28-2022 09:37-0400 Body height 162.56 cm Ishmael A Naderer Work Phone: [facility] 600 DO Work Phone: 01-28-2022 09:37-0400 Body mass index (BMI) [Ratio] 30.9 kg/m2 Ishmael A Naderer Work Phone: [facility] 600 DO Work Phone: 01-28-2022 09:37-0400 Body surface area Derived from formula 1.87 m2 Ishmael A Naderer Work Phone: [facility] 600 DO Work Phone: 01-28-2022 09:37-0400 Body weight 81.65 kg Ishmael Rae Naderer Work Phone: [facility] 600 DO Work Phone: 01-28-2022 09:37-0400 Diastolic blood pressure 50 mm[Hg] Ishmael Rae Naderer Work Phone: [facility] 600 DO Work Phone: 01-28-2022 09:37-0400 Heart rate 41 /min Ishmael Rae Naderer Work Phone: [facility] 600 DO Work Phone: 01-28-2022 09:37-0400 Systolic blood pressure 112 mm[Hg] Ishmael Rae Naderer Work Phone: [facility] 600 DO Work Phone: Encounters Encounter Date Encounter Type Care Provider Facility Start: 01-25-2024 End: 01-25-2024 ambulatory [facility] Start: 01-13-2024 End: 01-13-2024 ambulatory ISHMAEL SIMON Not Available Start: 11-09-2023 End: 11-09-2023 [facility] Start: 10-10-2023 End: 10-10-2023 ambulatory ISHMAEL SIMON Not Available Start: 09-26-2023 End: 09-26-2023 ambulatory [facility] Start: 09-26-2023 End: 09-26-2023 Subsequent hospital visit by physician Varsha Device Remote [facility] Comment on above: Cardiac pacemaker in situ; Sinoatrial node dysfunction (Multi) Start: 08-12-2023 End: 08-12-2023 ambulatory ISHMAEL VALLEJO [facility] Ambulatory Start: 08-10-2023 End: 08-10-2023 Subsequent hospital visit by physician Varsha Ultrasound 3 [facility] Comment on above: Localized swelling o n left hand; S/P placement of cardiac pacemaker Start: 08-10-2023 End: 08-10-2023 ambulatory [facility] Ambulatory Start: 08-10-2023 End: 08-10-2023 Office outpatient visit 25 minutes Amador Son MD Work Phone: [facility] Comment on above: Chronotropic incompe tence (Primary Dx); Abnormal stress test; Sinus bradycardia; Sick sinus syndrome (CMS/HCC); Essential hypertension, benign; BMI 34.0-34.9,adult; Current smoker Start: 08-05-2023 End: 08-05-2023 Subsequent hospital visit by physician Amador Son MD Work Phone: [facility] Comment on above: Sinus bradycardia (P rimary Dx); Chronotropic incompetence; Sick sinus syndrome (CMS/HCC); Other fatigue; Abnormal stress test; Dyspnea; Pacemaker Start: 07-22-2023 End: 07-22-2023 ambulatory [facility] Ambulatory Start: 07-22-2023 End: 07-22-2023 Encounter for preprocedural cardiovascular examination [facility] Ambulatory Start: 07-22-2023 End: 07-22-2023 Office outpatient new 60 minutes Amador Son MD Work Phone: [facility] Comment on above: Chronotropic incompe tence (Primary Dx); Sinus bradycardia; Establishing care with new doctor, encounter for; BMI 34.0-34.9,adult; Sick sinus syndrome (CMS/HCC); Simple chronic bronchitis (CMS/HCC); Current smoker; Other fatigue; Preoperative cardiovascular examination Start: 07-22-2023 End: 07-22-2023 Patient encounter status Amador Son MD Work Phone: [facility] Work Phone: Start: 07-13-2023 End: 07-13-2023 ambulatory [facility] Ambulatory Start: 07-13-2023 End: 07-13-2023 ambulatory [facility] Ambulatory Start: 04-13-2023 End: 04-13-2023 ambulatory [...] sit 15 minutes Ishmael Simon Work Phone: [facility] 600 DO Work Phone: Start: 07-14-2022 [...] 02-16-2022 Chart Update Ishmael Simon Work Phone: [facility] 250 DO Work Phone: Start: 02-15-[address] Valentino Ty Facility:44 Start: 01-28-[address] Ishmael Simon Facility: Start: 01-28-2022 Office consultation new/estab patient 60 min Ishmael Simon Work Phone: [facility] 600 DO Work Phone: Start: 01-14-2022 End: 01-15-2022 ambulatory TERESO COLMENARES . Facility:[facility] Start: 01-01-2022 End: 01-02-[address] ISHMAEL SIMON Facility:[facility] Start: 12-15-2021 End: 12-15-[address] RICKY IBARRA . Facility:[facility] Start: 12-14-2021 Encounter for preprocedural laboratory examination DR RICKY IBARRA . [facility] Start: 12-12-2021 End: 12-13-[address] [...] Start: 10-03-2020 End: 10-04-2020 ambulatory SIMONE RUIZ Facility:[facility] Start: 03-26-2020 End: 04-10-2020 ambulatory JEY ELISE Facility:[facility] Start: 03-14-2020 End: 03-15-2020 ambulatory JEY ELISE Facility:[facility] Procedures Date Procedure Procedure Detail Performing Clinician Start: 09-26-2023 CARDIAC DEVICE CHECK - REMOTE NAIMA WRIGHT Start: 09-26-2023 CARDIAC DEVICE CHECK - REMOTE Amador Son MD Work Phone: Start: 08-10-2023 VASC US UPPER EXTREM ITY VENOUS DUPLEX LEFT NAIMA ADRIANA Start: 08-10-2023 Dup-scan xtr veins unilateral/limited study Naima Priest Adriana PEARL STRINGER-JUDICIAL CLERK Work Phone: Start: 08-05-2023 Radiologic exam ches t single view Ana M Kumari PEARL STRINGER-JUDICIAL CLERK Work Phone: Start: 08-05-2023 Ecg routine ecg w/le ast 12 lds trcg only w/o i&r Ana M Kumari PEARL STRINGER-JUDICIAL CLERK Work Phone: Start: 08-05-2023 Electrophysiology study Amador Son MD Work Phone: Start: 08-05-2023 Echo tthrc r-t 2d w/ wom-mode compl spec&colr d Ana M Angel PEARL STRINGER-JUDICIAL CLERK Work Phone: Start: 08-05-2023 Ecg routine ecg w/le ast 12 lds trcg only w/o i&r Ana M Angel PEARL STRINGER-JUDICIAL CLERK Work Phone: Start: 08-05-2023 Basic metabolic pane l calcium total Ana M Angel PEARL STRINGER-JUDICIAL CLERK Work Phone: Start: 07-22-2023 CASE REQUEST EP LAB MINDI RHAF TRABOULSSI Start: 07-22-2023 AM[facility] ELECTROPHY[facility]OLOGY MOURHAF TRABOULSSI Start: 07-22-2023 ECG 12-LEAD MOURHAF TR ABOULSSI Start: 07-22-2023 Ecg routine ecg w/le ast 12 lds w/i&r Amador Son MD Work Phone: Start: 07-13-2023 HOLTER OR EVENT CARD IAC MONITOR MOURHAF TRABOULSSI Start: 07-13-2023 ECG 12-LEAD MOURHAF TR ABOULSSI Start: 05-07-[address] ISHMAEL CROUCH Comment on above: Performed By: #### V ITAD, PSASC #### [facility] [address] [place] [address] [address] Britt Mendoza Start: 03-15-2020 ANESTH HIP ARTHROPLASTY SIMONE RUIZ Start: 03-15-2020 TOTAL HIP ARTHROPLASTY JEY Hunt NILDA Start: 03-14-2020 Antibody screen SIMONE BOLIVAR Comment on above: Performed By: #### 6 [id number] ####[facility] Colonoscopy Ishmael A Naderer Work Phone: [...] Author Start: 08-04-2024 Creatinine measurement Creatinine Level [facility] Start: 08-04-2024 Echocardiography Echocardiogram [facility] Start: 08-04-2024 Potassium measurement Potassium Level [facility] Start: 01-08-2024 Influenza vaccination Influenza Vaccine (Season Ended) [facility] Start: 11-09-2023 End: 08-04-2024 Cardiac Device Check - In Clinic Cardiac Device Check - In Clinic Implantable Cardiac Device Routine Pacemaker Expected: 11/09/2023 (Approximate), Expires: 08/04/2024 [facility] Work Phone: Comment on above: Expected: 11/09/2023 (Approximate), Expi res: 08/04/2024 Start: 11-09-2023 End: 08-04-2024 XR Chest 2 Views XR chest 2 views Imaging Routine Pacemaker Expected: 11/09/2023, Expires: 08/04/2024 [facility] Work Phone: Comment on above: Expected: 11/09/2023, Expires: Start: 11-09-2023 End: 11-09-2023 Patient encounter procedure [facility] Start: 11-03-2023 End: 11-03-2023 Patient encounter procedure 11/03/2023 8:50 AM EDT Office Visit [place] [address] [place] [address] Valentino Ty MD [address] [facility], [address] [place] [address] [facility] Start: 08-12-2023 End: 08-12-2023 Clinical Support 08/12/2023 8:30 AM EDT Clinical Support [facility] [address] [place] [address] [facility] Start: 08-10-2023 Subsequent hospital visit by physician 08/10/2023 2:09 PM EDT Hospital Encounter [facility] [address] [place] [id number] Localized swelling on left hand; S/P placement of cardiac pacemaker [facility] Comment on above: Localized swelling on left hand; S/P placement of cardiac pacemaker Start: 07-22-2023 End: 07-21-2025 Heart Transthoracic Transthoracic Echo Complete Echocardiography Routine Sinus bradycardia Chronotropic incompetence Sick sinus syndrome (CMS/HCC) Other fatigue Preoperative cardiovascular examination Expected: 07/22/2023 (Approximate), Expires: 07/21/2025 [facility] Work Phone: Comment on above: Expected: 07/22/2023 (Approximate), Expi res: 07/21/2025 Start: 07-13-2023 FUV, Provider: Valentino Ty, Status: Pen, Time: 8:30 AM FUV, Provider: Valentino Ty, Status: Pen, Time: 8:30 AM [facility] 600 DO Work Phone: Start: 01-07-2023 COVID-19 Vaccine () COVID-19 Vaccine ( season) [facility] Start: 01-07-2023 Influenza vaccination Influenza Vaccine (#1) [facility] Start: 07-14-2022 FUV, Provider: Valentino Ty, Status: Pen, Time: 10:40 AM FUV, Provider: Valentino Ty, Status: Pen, Time: 10:40 AM [facility] 600 DO Work Phone: Start: 02-15-2022 STRESS JUICE, Provider: CARLITO KEANE NUCLEAR 01,[id number], Status: Pen, Time: 2:00 PM STRESS JUICE, Provider: CARLITO MCKEONI NUCLEAR 01,[id number], Status: Pen, [facility]: [facility] Work Phone: Start: 02-21-2014 Zoster Vaccines (1 of 2) Zoster Vaccines (1 of 2) [facility] Start: 02-21-1986 DTaP/Tdap/Td Vaccines (1 - Tdap) DTaP/Tdap/Td Vaccines (1 - Tdap) [facility] Start: 02-21-1983 Hepatitis B Vaccines (1 of 3 - 19+ 3-dose series) Hepatitis B Vaccines (1 of 3 - 19+ 3-dose series) [facility] Start: 02-21-1983 Urine screening for protein Diabetes: Urine Protein Screening [facility] Start: 02-21-1982 Diabetes mellitus screening Diabetes Screening [facility] Start: 02-21-1982 Hepatitis C screening Hepatitis C Screening [facility] Start: 02-21-1974 Diabetic foot examination Diabetes: Foot Exam [facility] Start: 02-21-1974 Glaucoma screening Diabetes: Retinopathy Screening [facility] Start: 02-21-1970 Pneumococcal Vaccine: Pediatrics (0 to 5 Years) and At-Risk Patients (6 to 64 Years) (1 - PCV) Pneumococcal Vaccine: Pediatrics (0 to 5 Years) and At-Risk Patients (6 to 64 Years) (1 - PCV) [facility] Start: 02-21-1970 Pneumococcal Vaccine: Pediatrics (0 to 5 Years) and At-Risk Patients (6 to 64 Years) (1 of 2 - PCV) Pneumococcal Vaccine: Pediatrics (0 to 5 Years) and At-Risk Patients (6 to 64 Years) (1 of 2 - PCV) [facility] Start: 02-21-1966 MMR Vaccines (1 of 1 - Standard series) MMR Vaccines (1 of 1 - Standard series) [facility] Start: 1964 COVID-19 Vaccine (#1) COVID-19 Vaccine (#1) [facility] Start: 1964 Creatinine measurement Creatinine Level [facility] Start: 1964 Echocardiography Echocardiogram [facility] Start: 1964 Hemoglobin A1c measurement Diabetes: Hemoglobin A1C [facility] Start: 1964 Hepatitis B Vaccines (1 of 3 - 3-dose series) Hepatitis B Vaccines (1 of 3 - 3-dose series) [facility] Start: 1964 HIV screening HIV Screening [facility] Start: 1964 Lipid panel Lipid Panel [facility] Start: 1964 Medicare Annual Wellness Visit Medicare Annual Wellness Visit (AWV) [facility] Start: 1964 Potassium measurement Potassium Level [facility] Start: 1964 Screening for malignant neoplasm of colon [facility] End: 07-21-2024 Basic metabolic 2000 panel - Serum or Plasma Basic Metabolic Panel Lab Routine Sinus bradycardia Chronotropic incompetence Sick sinus syndrome (CMS/HCC) Other fatigue 1 Occurrences starting 07/22/2023 until 07/21/2024 [facility] Work Phone: Comment on above: 1 Occurrences starting 07/22/2023 until 07/21/2024 End: 07-21-2024 CBC panel - Blood by Automated count CBC Lab Routine Sinus bradycardia Chronotropic incompetence Sick sinus syndrome (CMS/HCC) Other fatigue 1 Occurrences starting 07/22/2023 until 07/21/2024 [facility] Work Phone: Comment on above: 1 Occurrences starting 07/22/2023 until 07/21/2024 ECG 12 lead STAT ECG 12 lead STA T ECG STAT 08/05/2023 12:30 PM EDT [facility] Work Phone: ECG 12 lead STAT ECG 12 lead STA T ECG STAT 08/05/2023 5:12 PM EDT [facility] Work Phone: PPM IMPLANT DC PPM IMPLANT DC S inus bradycardia Chronotropic incompetence Sick sinus syndrome (CMS/HCC) Other fatigue [facility] Work Phone: End: 07-21-2024 Prothrombin time (PT) Protime-INR Lab Routine Sinus bradycardia Chronotropic incompetence Sick sinus syndrome (CMS/HCC) Other fatigue 1 Occurrences starting 07/22/2023 until 07/21/2024 [facility] Work Phone: Comment on above: 1 Occurrences starting 07/22/2023 until 07/21/2024 Payers Date Payer Category Payer Medicare HUMANA MEDICARE HUMANA GOLD CHOICE [id number] 2023-Present [address] [address] [place] [address] [id number] 2023 Medicare [id number] 1964 Unknown [id number] 2..840.1.997679.3.579.2.647 1964 Unknown [id number] 2..840.1.155018.3.579.2.647 1964 Unknown [id number] 2.16.840.1.702616.3.579.2.647 1964 Unknown [id number] 2..840.1.675497.3.579.2.1068 1964 Unknown [id number] 2.16.840.1.101331.3.579.2.356 1964 Unknown [id number] 2.16.840.1.832846.3.579.2.356 1964 Unknown [id number] 2.16.840.1.631595.3.579.2.593 1964 Unknown [id number] 2.16.840.1.756231.3.579.2.593 1964 Unknown [id number] 2.16.840.1.980062.3.579.2.593 1964 Unknown [id number] 2.16.840.1.369295.3.579.2.593 1964 Unknown [id number] 2.16.840.1.566244.3.579.2.593 1964 Unknown [id number] 2.16.840.1.887574.3.579.2.593 1964 Unknown [id number] 2.16.840.1.312326.3.579.2.593 1964 Unknown [id number] 2.16.840.1.308571.3.579.2.593 1964 Unknown [id number] 2.16.840.1.294608.3.579.2.593 1964 Unknown [id number] 2.16.840.1.253246.3.579.2.593 1964 Unknown [id number] 2.16.840.1.162489.3.579.2.593 1964 Unknown [id number] 2.16.840.1.977156.3.579.2.593 1964 Unknown [id number] 2.16.840.1.968180.3.579.2.593 1964 Unknown [id number] 2.16.840.1.809090.3.579.2.593 1964 Unknown [id number] 2.16.840.1.599926.3.579.2.593 1964 Unknown [id number] 2.16.840.1.078294.3.579.2.593 1964 Unknown [id number] 2.16.840.1.296527.3.579.2.593 1964 Unknown [id number] 2.16.840.1.371039.3.579.2.593 1964 Unknown [id number] 2.16.840.1.678950.3.579.2.593 1964 Unknown [id number] 2.16.840.1.381784.3.579.2.593 1964 Unknown [id number] 2.16.840.1.486583.3.579.2.593 1964 Unknown [id number] 2.16.840.1.926824.3.579.2.593 1964 Unknown [id number] 2.16.840.1.763873.3.579.2.593 1964 Unknown [id number] 2.16.840.1.664941.3.579.2.593 1964 Unknown [id number] 2.16.840.1.243291.3.579.2.1244 1964 Unknown [id number] 2.16.840.1.955270.3.579.2.1244 1964 Unknown [id number] 2.16.840.1.623227.3.579.2.1244 1964 Unknown [id number] 2.16.840.1.554635.3.579.2.1244 1964 Unknown [id number] 2.16.840.1.151304.3.579.2.1244 1964 Unknown [id number] 2.16.840.1.461900.3.579.2.1244 1964 Unknown [id number] 2.16.840.1.886638.3.579.2.1259 1964 Unknown [id number] 2.16.840.1.565495.3.579.2.1259 1964 Unknown [id number] 2.16.840.1.059893.3.579.2.1259 1964 Unknown [id number] 2.16.840.1.974378.3.579.2.1246 1964 Unknown [id number] 2.16.840.1.448414.3.579.2.1246 1964 Unknown [id number] 2.16.840.1.260045.3.579.2.1246 1964 Unknown [id number] 2.16.840.1.353567.3.579.2.1246 1964 Unknown [id number] 2.16.840.1.503538.3.579.2.1246 1960 Medicaid [id number] 1960 Medicare [id number] Unknown [id number] Unknown Social History Date Type Detail Facility Start: 07-13-2023 End: 08-10-2023 No alcohol use No alcohol use -[facility] DO Work Phone: Comment on above: 1 pack daily; Start: 07-13-2023 End: 08-05-2023 Tobacco smoking status IDIS Smokes tobacco daily [facility] History of tobacco use Cigarette Smoker [facility] Work Phone: Start: 07-13-2023 End: 08-05-2023 Tobacco use and exposure Smokeless tobacco non-user [facility] Work Phone: Start: 07-22-2023 End: 08-10-2023 Alcohol intake Lifetime non-drinker (finding) [facility] Work Phone: Start: 07-13-2023 End: 08-10-2023 Tobacco use panel [facility] Work Phone: Start: 1965 Sex Assigned At Not on file [facility] Work Phone: Start: 07-12-2023 End: 08-10-2023 Exposure to SARS-CoV-2 (event) Not sure [facility] Medical Equipment Procedure Code Equipment Code Equipment Origin al Text Equipment Identifier Dates Lead, Capsurefix Novus, 52 Cm - [id number] Start: 08-05-2023 Lead, Capsurefix Novus, 45 Cm - [id number] Start: 08-05-2023 Pacemaker, Dual Chamber, [employer] Mri Xt Dr - [id number] Start: 08-05-2023 Clinical Notes 08-31-2020 to [...] some point he had some evaluation in [place] that shows no significant obstructive coronary disease [...] night however but 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 No symptoms [...] Diagnosis Date Arrhythmia CHF (congestive heart failure) ([facility]) COPD (chronic obstructive pulmonary disease) ([facility]) Hypertension Social History Social History Tobacco Use [...] breakfast cetirizine (ZYRTEC) 10 mg, oral, Nightly grnjykjoddy-wkkriwbcl-qengpkdz (TRELEGY-ELLIPTA) 100-62.5-25 mcg blister with device 1 [...] prepare this document. documented in this encounter [facility] Work Phone: 08-10-2023 Instructions Vero Mccarthy LPN [...] requested at the time of your visit. IVero LPN, am scribing for and in the presence of Dr. Amador Son MD documented in this encounter [facility] Work Phone: 08-05-2023 Nurse Note Patient discharge instructions reviewed with patient and , verbalized understanding. Lt chest dressing remains dry/intact, no hematoma, no ecchymosis. Patient able to teachback site care instructions, follow up appointments. IV x2 removed and patient discharged to home via w/c. [facility] 08-05-2023 Nurse Note Patient discharge instructions reviewed [...] and ice pack over site. Sterling from [employer] in room speaking to Pt and SO educating on home device monitor. Pt returned to room after echocardiogram. Denies needs at this time. documented in this encounter [facility] Work Phone: 08-05-2023 Nurse Note Patient sitting up in chair, denies any complaints of incisional pain. Lt upper chest incision remains dry/intact. Will begin discharge instructions. [facility] Work Phone: 08-05-2023 Nurse Note Patient ambulated to BR, gait steady. Pacer rep has already met with patient and . Lt upper chest dressing remains dry/intact. Lt arm in immobilizer and ice pack over site. [facility] Work Phone: 08-05-2023 Note Formatting of this n ote might be different from the original. Post EKG and CXR performed at bedside. Pt denies needs at this time. Left chest remains soft and stable with no hematoma or oozing. [facility] Work Phone: 08-05-2023 Miscellaneous Notes Post EKG [...] discussed with patient. documented in this encounter [facility] Work Phone: 08-05-2023 Hospital Discharge instructions Ana M Kumari APRN-SHE - 08/05/2023 5:00 PM EDT Images from [...] your arm above shoulder level. Do not grain picker items that weigh greater than 10 lbs [...] have been instructed by the device company resources representative regarding remote home monitoring. There are [...] sent through Care Everywhere.Pacemaker Insertion Discharge Instructions (Uzbek)documented in this encounter [facility] Work Phone: 08-05-2023 Note Formatting of this [...] Pt denies further needs at this time. [facility] Work Phone: 08-05-2023 Note Table formatting fro [...] of infection. The patient should call the occupational health nurse supervisor immediately if symptoms recur, or for any problems. The patient has been instructed accordingly. 2. Follow up with [facility] office in seven days for post-operative [...] model number W1 DR 017 number [id number]. Right atrial lead [employer] 5076/45 serial number [id number] 8 mm [id number]. Imp (more content not included)... [id number] 08-05-2023 Note Formatting of this n ote might be different from the original. Sedation Plan ASA 2 Mallampati class: II. Risks, benefits, and alternatives discussed with patient. 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 No symptoms [...] breakfast cetirizine (ZYRTEC) 10 mg, oral, Nightly djxdvxzydjw-jjqjubxdc-igoyldxa (TRELEGY-ELLIPTA) 100-62.5-25 mcg blister with device 1 [...] software was utilized to prepare this document. 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 No symptoms [...] breakfast cetirizine (ZYRTEC) 10 mg, oral, Nightly dekjnlkjxye-hauzbvqth-gokexuui (TRELEGY-ELLIPTA) 100-62.5-25 mcg blister with device 1 [...] prepare this document. documented in this encounter [facility] Work Phone: 08-05-2023 Nurse Note Sterling from [employer] in room speaking to Pt and SO educating on home device monitor. [facility] 08-05-2023 Nurse Note Pt returned to room after echocardiogram. Denies needs at this time. 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 No symptoms [...] breakfast cetirizine (ZYRTEC) 10 mg, oral, Nightly mqmcmljwtps-ikfbxsnjc-zwegskkb (TRELEGY-ELLIPTA) 100-62.5-25 mcg blister with device 1 [...] prepare this document. documented in this encounter [facility] Work Phone: 07-22-2023 Instructions Jazz Flynn RN [...] AMADOR SON MD documented in this encounter [facility] Work Phone: 07-20-2022 Note CONSULTATION PROCEDURE DATE: [...] right medial portion of his leg. [facility] 05-07-2022 Note CONSULTATION CONSULTATION DATE: [...] three months' time unless otherwise indicated. [facility] 01-14-2022 Note CONSULTATION CONSULTATION DATE: [...] it was recommended that he see a choker hooker, which he did do. He did a Holter monitor study and is following up with his choker hooker on 01/28/2022. Current medications include gabapentin 300 [...] agrees with the plan of care. [facility] 11-19-2021 Note CONSULTATION CONSULTATION DATE: [...] to S1. Activities such as standing, walking, gear technician and evening hours, stairs, bending and physical [...] be followed up in the clinic post-procedure. [facility] Signed and Approved by: TERESO COLMENARES . 11/27/2021 14:13:00 [facility] 10-22-2021 Note CONSULTATION CONSULTATION DATE: 10/22/2021 [...] patient agrees with the plan of care. [facility] Signed and Approved by: TERESO COLMENARES . 11/04/2021 16:23:[address] [facility] 10-01-2021 Note CONSULTATION CONSULTATION DATE: [...] shape. He has seen Dr. Nunn in [place] in the past regarding his back, and [...] Approved by: TERESO COLMENARES . 10/08/2021 16:01:00 [facility] 08-31-2020 Note Microbiology PROCEDURE: Blood Culture [...] Locations R1: This test was performed at: [facility], [address] [place] [address], [facility] Comment on above: Performed By: #### [id number] ####[address] [address] 08-31-2020 Note Microbiology PROCEDURE: Blood Culture Charcoal [...] Locations R1: This test was performed at: [facility], [address] [place] [address], [address] [place] [address], [facility] Comment on above: Performed By: #### [id number] ####[address] [address] Evaluation note Diagnosis 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 Sinus bradycardia Other specified cardiac dysrhythmias Establishing care with new doctor, encounter for BMI 34.0-34.9,adult Sick sinus syndrome (CMS/HCC) Sinoatrial node dysfunction Simple chronic bronchitis (CMS/HCC) Simple chronic bronchitis Current smoker Other fatigue Preoperative cardiovascular examination Pre-operative cardiovascular examination documented in this encounter [facility] Work Phone: Evaluation note* Diagnosis Other fatigue- [...] dysfunction Other fatigue documented in this encounter [facility] Work Phone: Evaluation note* Diagnosis Localized swelling on left hand S/P placement of cardiac pacemaker 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 Abnormal stress test Other nonspecific abnormal cardiovascular system function study Sinus bradycardia Other specified cardiac dysrhythmias Sick sinus syndrome (CMS/HCC) Sinoatrial node dysfunction Essential hypertension, benign BMI 34.0-34.9,adult Current smoker documented in this encounter [facility] Work Phone: Evaluation note* Diagnosis Localized swelling on left hand S/P placement of cardiac pacemaker documented in this encounter [facility] Work Phone: Evaluation note* Diagnosis Cardiac pacemaker in situ Sinoatrial node dysfunction (Multi) Sinoatrial node dysfunction documented in this encounter [facility] Work Phone: History of Present illness Narrative* Patient is here for cardiovascular evaluation for second opinion in regard to documents resting sinus bradycardia. The patient is 56-year-old with history of tobacco use and COPD was evaluated recently due to shortness of breath and his stress test showed questionable inferior wall ischemia. This led to a cardiac evaluation in [place] and its not clear to me whether [...] recent ischemic evaluation * 5 follow-up in [address] [place] [address] [address] [employer] Work Phone: History of Present illness Narrative* Patient is here for cardiovascular evaluation for second opinion in regard to documents resting sinus bradycardia. The patient is 56-year-old with history of tobacco use and COPD was evaluated recently due to shortness of breath and his stress test showed questionable inferior wall ischemia. This led to a cardiac evaluation in [place] and its not clear to me whether [...] ischemic evaluation * 5 follow-up in 6 [facility] Work Phone: History of Present illness Narrative* Patient is here for cardiovascular evaluation for second opinion in regard to documents resting sinus bradycardia. The patient is 56-year-old with history of tobacco use and COPD was evaluated recently due to shortness of breath and his stress test showed questionable inferior wall ischemia. This led to a cardiac evaluation in [place] and its not clear to me whether [...] ischemic evaluation * 5 follow-up in 6 [facility] Work Phone: History of Present illness [...] ischemic evaluation. He underwent cardiac catheterization in [place] which showed no significant obstructive disease * [...] EKG or earlier if the need arise [facility] 600 DO Work Phone: Summary [...] Preoperative cardiovascular examination Procedures Transthoracic Echo Complete MN ECHO TTHRC R-T 2D W/WOM-MODE COMPL SPEC&COLR D Amador Son MD [address] [address] Referral ID Status Reason Start Date Expiration Date Visits Requested Visits Authorized [id number] Pending Review Perform Procedure 07/22/2023 07/21/2024 1 1 Specialty Diagnoses / Procedures Referred By Contac t Referred To Contact Diagnoses Sinus bradycardia Establishing care with new doctor, encounter for Procedures ECG 12 lead (Clinic Performed) Amador Son MD [address] [address] Referral ID Status Reason Start Date Expiration Date V isits Requested Visits Authorized [id number] Authorized 07/22/2023 07/21/2024 1 1 Specialty Diagnoses / Procedures Referred By Contac t Referred To Contact Radiology Diagnoses Pacemaker Procedures XR chest 2 views Ana M Kumari PEARL STRINGER-JUDICIAL CLERK [address] [facility], [address] [address] Referral ID Status Reason Start Date Expiration Date Visits Requested Visits Authorized [id number] Authorized Perform Procedure 08/05/2023 08/04/2024 1 1 Specialty Diagnoses / Procedures Referred By Contac t Referred To Contact Cardiology Diagnoses Pacemaker Procedures Cardiac Device Check - In Clinic Ana M Kumari PEARL STRINGER-JUDICIAL CLERK [address] [facility], [address] [address] Referral ID Status Reason Start Date Expiration Date Visits Requested Visits Authorized [id number] Pending Review Perform Procedure 08/05/2023 08/04/2024 1 1 Specialty Diagnoses / Procedures Referred By Contac t Referred To Contact Cardiology Diagnoses Localized swelling on left hand S/P placement of cardiac pacemaker Procedures Vascular US upper extremity venous duplex left Naima Wright, PEARL STRINGER-JUDICIAL CLERK [address] [facility], [address] [address] Referral ID Status Reason Start Date Expiration Date Visits Requested Visits Authorized [id number] Authorized Perform Procedure 08/09/2023 08/08/2024 1 1 Specialty Diagnoses / Procedures Referred By Contac t Referred To Contact Cardiology Diagnoses Cardiac pacemaker in situ Sinoatrial node dysfunction (Multi) Procedures Cardiac Device Check - Remote Amador Son MD [address] [facility] [address] [place] [address] Referral ID Status Reason Start Date Expiration Date Visits Requested Visits Authorized [id number] Pending Review Perform Procedure 08/08/2023 08/07/2024 1 1 Additional Source Comments (unrecognized sect ion and content) No Status Records FoundNo Status Records FoundNo Status Records FoundNo Status Records FoundNo Status Records FoundNo Status Records FoundNo Status Records FoundNo Status Records FoundNo Status Records Found INFORMATION SOURCE (unrecogn ized section and content) DATE CREATED AUTHOR 03/06/2021 [facility] DATE CREATED AUTHOR AUTHOR'S ORGANIZ ATION 03/12/2021 [facility] DATE CREATED AUTHOR AUTHOR'S ORGANIZ ATION 02/16/2022 [facility] DATE CREATED AUTHOR AUTHOR'S ORGANIZ ATION 07/16/2022 [facility] DATE CREATED AUTHOR AUTHOR'S ORGANIZ ATION 07/16/2022 [facility] DATE CREATED AUTHOR AUTHOR'S ORGANIZ ATION 09/17/2022 [facility] DATE CREATED AUTHOR AUTHOR'S ORGANIZ ATION 11/10/2023 [facility] DATE CREATED AUTHOR AUTHOR'S ORGANIZ ATION 01/15/2024 [facility] EPIC DATE CREATED AUTHOR AUTHOR'S ORGANIZ ATION 01/30/2024 [facility] Reason for Visit (unrecogniz ed section and content) Reason Comments New Patient Visit Pt is here today as a new patient from Dr. Ty Specialty Diagnoses / Procedures Referred By Isela mckay Referred To Contact Cardiology Diagnoses Sinus bradycardia Valentino Ty MD [address] [facility] 2, [facility] [address] [place] [address] Amador Son MD [address] [address] Referral ID Status Reason Start Date Expiration Date Visits Requested Visits Authorized [id number] Authorized Specialty Services Required 07/15/2023 07/14/2024 1 1 Specialty Diagnoses / Procedures Referred By Isela t Referred To Contact Diagnoses Sinus bradycardia Chronotropic incompetence Sick sinus syndrome (CMS/HCC) Other fatigue Sinus bradycardia [R00.1] Chronotropic incompetence [I45.89] Sick sinus syndrome (CMS/HCC) [I49.5] Other fatigue [R53.83] Procedures MN INS NEW/RPLCMT PRM PM W/TRANSV ELTRD ATRIAL&VENT PPM IMPLANT DUAL Amador Son MD [address] [facility] [address] [place] [address] [facility] [address] [place] [address] Referral ID Status Reason Start Date Expiration Date Visits Re quested Visits Authorized [id number] 1 1 Reason Comments Wound Check Patient is having sw elling in his right hand Specialty Diagnoses / Procedures Referred By Isela mckay Referred To Contact Cardiology Diagnoses Localized swelling on left hand S/P placement of cardiac pacemaker Procedures Vascular US upper extremity venous duplex left Yusuf-Naima Rodriguez E, PEARL STRINGER-JUDICIAL CLERK [address] [address] Referral ID Status Reason Start Date Expiration Date Visits Requested Visits Authorized [id number] Authorized Perform Procedure 08/09/2023 08/08/2024 1 1 Specialty Diagnoses / Procedures Referred By Isela t Referred To Contact Cardiology Diagnoses Cardiac pacemaker in situ Sinoatrial node dysfunction (Multi) Procedures Cardiac Device Check - Remote Amador Son MD [address] [facility] [address] [place] [address] Referral ID Status Reason Start Date Expiration Date Visits Requested Visits Authorized [id number] Pending Review Perform Procedure 08/08/2023 08/07/2024 1 1 Care Teams (unrecognized sec tion and content) Collaborating Supervising Physician Relationship Specialty Start Date End Date Ishmael Simon MD [address] [place] [address] PCP - General Family Medicine 06/29/23 Collaborating Supervising Physician Relationship Specialty Start Date End Date Ishmael Simon MD [address] [place] [address] PCP - [facility] Medicine 06/29/23 Collaborating Supervising Physician Relationship Specialty Start Date End Date Ishmael Simon MD [address] [place] [phone] PCP - General [facility] Medicine 06/29/23 Collaborating Supervising Physician Relationship Specialty Start Date End Date Ishmael Simon MD [address] [place] [address] PCP - [facility] Medicine 06/29/23 Collaborating Supervising Physician Relationship Specialty Start Date End Date Ishmael [...] 1222 (New Bag - Prov ider: Lexi rAaiza RN)1659 (Due: Stopped - Provider: CHIDI Ferreira) sodium chloride 0.9% infusion (CANCELED) 20 mL/hr, intravenous, Continuous, Starting on Tue08/05/23 at 1230, Preprocedure, 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 [employer] provides no warranty or guarantee of the accuracy or completeness of information in this document.
[2024-02-06 14:22] LABS: Bilirubin Urine NEGATIVE (NEGATIVE); Blood Urine TRACE-I (NEGATIVE); Clarity Urine SL CLOUDY (CLEAR); Color Urine LT. YELLOW (YELLOW); Glucose Urine UA NEGATIVE (NEGATIVE); Ketones Urine NEGATIVE (NEGATIVE); Leukocyte Esterase Urine LARGE (NEGATIVE); Nitrite Urine NEGATIVE (NEGATIVE); Protein Urine NEGATIVE (NEG/TRACE); Specific Gravity Urine 1.015 (1.005-1.025); Urobilinogen Urine 0.2 EU/dL (0.2-1.0)
[2024-02-06 14:23] LABS: Urine Microscopic Indicated YES
[2024-02-06 14:48] LABS: WBC Urine 20-50 #/HPF (NONE SEEN)
[2024-02-06 14:49] LABS: Bacteria Urine SMALL #/HPF (NONE SEEN); Cast Seen? SEEN #/LPF (NONE SEEN); Crystals Seen? None Seen #/HPF (None Seen); Hyaline Casts Urine FEW; Mucus Urine SMALL (NONE SEEN); Squamous Epithelial Cell Urine FEW #/LPF (NONE/RARE); Trichomonas Urine SEEN (NONE SEEN)
[2024-02-08 06:10] LABS: Neisseria gonorrhoeae, NAA Negative (Negative)
== END 2024-02-06 13:43 | disposition home or self-care (01) ==
LOC: LAB 13:43
PROVIDERS: PCP Family Medicine; Visit Provider Family Medicine
DX: R30.0 Dysuria (principal); R82.81 Pyuria; N41.0 Acute prostatitis
CPT/HCPCS: 81001; 87086; 87491; 87591

== ENCOUNTER 2024-03-01 12:25 | Outpatient (OUT) | payer MEDICARE, SELFPAY ==
--- OUTSIDE RECORDS SUMMARY | 2024-03-01 12:33 | XMS_ITS | CCD ---
Author Organization [facility] Care Team Providers Care Project Production Engineer Name Role Phone SIMONE RUIZ Admitting Unavailable SIMONE RUIZ Attending Unavailable ISHMAEL SIMON Referring Unavailable ISHMAEL SIMON Primary Care Unavailable JEY ELISE R Attending Unavailable JEY ELISE R Surgeon Unavailable [place] Procedure Practitioner Unavailab ISHMAEL Campoverde Primary Care Unavailable ALFRED, ISHMAEL Referring Unavailable NILDAJEY R Admitting Unavailable JEY ELISE R Attending Unavailable ISHMAEL SIMON Primary Care Unavailable ISHMAEL SIMON Referring Unavailable JEY ELISE R Admitting Unavailable Ishmael Simon Unavailable Unavailable Unavailable Carissa, Dr. Armstrong Attending Unavaila ble Traboulssi, Dr. Armstrong Referring Unavaila ble Naderer, Dr. Ishmael Vallejo Primary Care Unavai lable Traboulnic, Dr. Armstrong Attending Unavaila ble Traboulssi, Dr. Armstrong Referring Unavaila ble Naderer, Dr. Ishmael Vallejo Primary Care Unavai lable Alfred, Dr. Ishmael Vallejo Primary Care Unavai lable Alfred, Dr. Ishmael Vallejo Referring Unavai lable Trabouljulii, Dr. Armstrong Attending Unavaila ble NADERER, DR ISHMAEL Rae Primary Care Unavailable [...] ., DR RICKY Bateman Attending Unavailable COLMENARES .TERESO Consulting Unavailable NADERER, DR ISHMAEL Rae Primary Care Unavailable NADERER, DR ISHMAEL Rae Primary Care Unavailable NADERER, DR ISHMAEL Rae Attending Unavailable NADERER, DR ISHMAEL Rae Consulting Unavailable NADERER, DR ISHMAEL Rae Admitting Unavailable NADERER, DR ISHMAEL Rae Primary Care Unavailable IBARRA ., DR RCIKY Bateman Attending Unavailable IBARRA ., DR RICKY Bateman Consulting Unavailable IBARRA ., DR RICKY Bateman Admitting Unavailable LAKSHMIPATHY ., NARENDRANATH Attending Anupama vailable LAKSHMIPATHY ., NARENDRANATH Consulting Anupama vailable NADDIEGOR, DR ISHMAEL Rae Primary Care Unavailable LAKSHMIPATHY ., NARENDADRIENNEATH Admitting Anupama vailable IBARRA ., DR RICKY [...] ., NARENDRANATH Attending Anupama vailable LAKSHMIPATHY ., NARENDRANATH Consulting Anupama vailable ALFRED, DR ISHMAEL Rae Primary Care Unavailable COLMENARES ., TERESO Consulting Unavailable IBARRA ., DR RICKY Bateman Attending Unavailable IBARRA ., DR RICKY Bateman Admitting Unavailable NADEREMarilee, DR ISHMAEL Rae Primary Care Unavailable LAKSHMIPATHY ., NARENDRANATH Admitting Anupama vailable LAKSHMIPATHY ., NARENDRANATH Attending Anupama vailable LAKSHMIPATHY ., NARENDSOSA Consulting Anupama vailable NADTAVIA, DR ISHMAEL Rae Primary Care Unavailable IBARRA [...] vailable LAKSHMIPATHY ., WILDER Attending Anupama vailable NADDIEGOR, DR ISHMAEL Rae Primary Care Unavailable NADERER, DR ISHMAEL Rae Attending Unavailable NADERER, DR ISHMAEL Rae Admitting Unavailable NADERER, DR ISHMAEL Rae Primary Care Unavailable ZIEBER, DR FLEX Hunt Consulting Unavailable NADERER, DR ISHMAEL Rae Consulting Unavailable COLMENARES ., TERESO Consulting Unavailable IBARRA ., DR RICKY Bateman Admitting Unavailable IBARRA ., DR RICKY Bateman Attending Unavailable NADEREMarilee, DR ISHMAEL Rae Primary Care Unavailable Nadtavia LANE, Ishmael Vallejo Primary Care Provider Alfred LANE, Ishmael Vallejo Primary Care Provider VALENTINO TY Attending Unavailable ALFRED, ISHMAEL VALLEJO Primary Care Unavailabl e VALENTINO TY Referring Unavailable NADERER, ISHMAEL VALLEJO Primary [facility] Unavailabl e SON, AMADOR N Attending Unavailable NADERER, [facility] Primary [facility] Unavailabl e ERINNIC HAWKBRISA Referring Unavailable SON, AMADOR N Attending Unavailable NADERER, ISHMAEL [facility] Unavailabl e NADERER, [facility] Unavailabl e ADRIANA, NAIMA E Attending Unavaila ble NADERER, ISHMAEL YONI Primary [facility] Unavailabl e NADERER, ISHMAEL Attending Unavailable NADERER, ISHMAEL Attending Unavailable NADERER, ISHMAEL Attending Unavailable NADERER, ISHMAEL Attending Unavailable Naderer , Ishmael Donaldsonony Primary Care Provider Adriana HOUSEKEEPING ATTENDANT-THREAD REELER, Naima E Unavailable ADRIANA, NAIMA Priest Referring Unavaila ble NADERER, ISHMAEL [facility] Unavailabl e SON, AMADOR N Referring Unavailable NADERER, [facility] Unavailabl e ANA M KUMARI Referring Unavailable NADERER, [facility] Unavailabl e ANA M KUMARI Referring Unavailable NADERER, [facility] Unavailabl e SON, AMADOR N Referring Unavailable NADERER, [facility] Unavailabl e SON, AMADOR N Referring Unavailable NADERER, [facility] Unavailabl e Medications Current Medications Medication Drug Class(es) Dates Sig (Normalized) Sig (Original) acetaminophen 325 mg oral tablet (1 source) Start: 08-05-2023 take 1 tablet by mouth every four hours as needed acetaminophen (Tylenol) tablet 650 mg acetaminophen 325 mg / oxyCODONE hydrochloride 7.5 mg oral tablet (12 sources) Opioid Agonist Start: 03-30-2021 take 1 [...] Ordered: 01-Apr-2021 DO Start : 30-Mar-2021 Active [id number] 200 actuat albuterol 0.09 mg/actuat metered dose inhaler (7 sources) beta2-Adrenergic Agonist take 2 puff(s) by inhalation every four hours albuterol (Ventolin HFA) 90 mcg/actuation inhaler Inhale 2 puffs every 4 hours if needed. Active aspirin 81 mg delayed release oral tablet (1 source) Platelet Aggregation Inhibitor, Nonsteroidal Anti-inflammatory Drug Start: End: take 1 tablet by mouth once daily aspirin 81 mg EC tablet Indications: Chronotropic incompetence Take 1 tablet (81 mg) by mouth once daily. 12/01/2023 11/30/2024 Active baclofen 10 mg oral tablet (1 source) gamma-Aminobutyric Acid-ergic Agonist Start: take 0.5-1 tablets by mouth twice daily baclofen (Lioresal) 10 mg tablet TAKE 1/2 TO 1 TABLET BY MOUTH TWICE A DAY 10/24/2023 Active cetirizine hydrochloride 10 mg oral tablet (12 sources) Histamine-1 Receptor Antagonist take 1 tablet by mouth once daily at bedtime cetirizine (ZyrTEC) 10 mg tablet Take 1 tablet (10 mg) by mouth once daily at bedtime. Active 30 actuat fluticasone furoate 0.1 mg/actuat / umeclidinium 0.0625 mg/actuat / vilanterol 0.025 mg/actuat dry powder inhaler (12 sources) Anticholinergic, Corticosteroid, beta2-Adrenergic Agonist fluticasone-umeclid in-vilanter (TRELEGY-ELLIPTA) 100-62.5-25 mcg blister with device Inhale 1 puff. Use as directed Active Trelegy Ellipta 100-62.5-25 MCG/INH AEPB USE DIRECTED Quantity: 0 Refills: 0 Ordered: 28-Jan-2022 DO Active furosemide 40 mg oral tablet (12 sources) Loop Diuretic take 1 tablet by mouth twice daily furosemide (Lasix) 40 mg tablet Take 1 tablet (40 mg) by mouth 2 times a day. Active gabapentin 300 mg oral capsule (12 sources) Anti-epileptic Agent take 1 capsule by mouth once daily gabapentin (Neurontin) 300 mg capsule Take 1 capsule (300 mg) by mouth once daily. Active montelukast 10 mg oral tablet (12 sources) Leukotriene Receptor Antagonist take 1 tablet by mouth once daily at bedtime Singulair 10 mg tablet Take 1 tablet (10 mg) by mouth once daily at bedtime. Active nabumetone 500 mg oral tablet (12 sources) Nonsteroidal Anti-inflammatory Drug take 1 tablet by mouth twice daily nabumetone (Relafen) 500 mg tablet Take 1 tablet (500 mg) by mouth 2 times a day. Active take 1 tablet by mouth once victoriano y Nabumetone 500 MG Oral Tablet TAKE 1 TABLET EVERY 12 HOURS DAILY. Quantity: 0 Refills: 0 Ordered: 28-Jan-2022 DO Active omeprazole 40 mg delayed release oral capsule (12 sources) Proton Pump Inhibitor take 1 capsule by mouth once daily omeprazole (PriLOSEC) [address] capsule Take 1 capsule (40 mg) by mouth once daily. Active 2 ml ondansetron 2 mg/ml injection (1 source) Serotonin-3 Receptor Antagonist Start: 08-05-19 take 4 mg intravenously every eight hours as needed ondansetron (Zofran) injection 4 mg oxygen (O2) gas therapy (7 sources) oxygen (O2) gas therapy 2l at bedtime Active oxygen (O2) gas therapy 2l at bedtime 0 Active perflutren lipid microspheres (Definity) injection 0.5-10 mL of dilution (1 source) Start: 08-05-2023 perflutren lipid microspheres (Definity) injection 0.5-10 mL of dilution spironolactone 100 mg oral tablet (12 sources) Aldosterone Antagonist take 1 tablet by [...] quadrant pain] Onset: 06-11-2022 Episodic Cardiac dysrhythmias (19 sources) Sick sinus syndrome; Translations: [Sick sinus syndrome] Onset: 07-13-2023 07-22-2023 Chronic Chronic obstructive pulmonary disease and bronchiectasis (19 sources) Chronic obstructive lung disease; Translations: [Chronic airway obstruction, not elsewhere classified] Onset: 05-23-2023 07-22-2023 Chronic Conduction disorders (20 sources) Chronotropic incompetence; Translations: [Other specified conduction disorders] Onset: 07-13-2023 07-22-2023 Chronic Congestive heart failure; nonhypertensive (9 sources) Chronic diastolic heart failure; Translations: [Chronic diastolic (congestive) heart failure] Onset: 04-13-2023 Resolved: 12-01-2023 07-22-2023 Chronic Diabetes mellitus with complications (8 sources) Type 2 diabetes mellitus with hyperglycemia; Translations: [Type 2 diabetes mellitus] Onset: 05-13-2022 07-22-2023 Chronic Disorders of lipid metabolism (1 source) Hyperlipidemia, unspecified; Translations: [HYPERLIPIDEMIA UNSPECIFIED] Onset: 05-13-2022 Chronic Essential hypertension (11 sources) Essential (primary) hypertension; Translations: [Benign essential [...] Chronic Other nutritional; endocrine; and metabolic disorders (9 sources) Body mass index 30+ - obesity; [...] limb] 08-10-2023 Episodic Peripheral and visceral atherosclerosis (9 sources) Peripheral vascular disease; Translations: [Peripheral vascular disease, unspecified] Onset: 04-13-2023 07-22-2023 Chronic Residual codes; unclassified (8 sources) Obstructive sleep apnea syndrome; Translations: [Obstructive sleep apnea (adult) (pediatric)] Onset: 04-13-2023 07-22-2023 Chronic Residual codes; unclassified (1 source) Obstructive sleep apnea (adult) (pediatric); Translations: [Obstructive sleep apnea (adult) (pediatric)] Onset: 07-22-2023 Chronic Spondylosis; intervertebral disc disorders; other back problems (10 sources) Spondylosis without myelopathy or radiculopathy, lumbar region; Translations: [Other intervertebral disc degeneration, lumbar region] Onset: 10-02-2021 Chronic Substance-related disorders (20 sources) Smoker; Translations: [Tobacco use disorder] Onset: [...] dysrhythmias] Onset: 01-01-2022 Episodic Malaise and fatigue (11 sources) Fatigue; Translations: [Other fatigue] Onset: 07-22-2023 07-22-2023 Episodic Other aftercare (1 source) Other assisted (current) drug therapy; Translations: [OTH SOCIAL SERVICES ANALYST CURRENT DRUG THERAPY] Onset: 05-13-2022 Episodic Other connective tissue disease (1 source) Other muscle spasm; Translations: [OTHER MUSCLE SPASM] Onset: 05-13-2022 Episodic Other lower respiratory disease (13 sources) Dyspnea; Translations: [Other respiratory abnormalities] Onset: 05-23-2023 05-23-2023 Episodic Other lower respiratory disease (4 sources) Pleurodynia; Translations: [PLEURODYNIA] Onset: 10-01-2021 Episodic Other lower respiratory disease (2 sources) Other forms of dyspnea; Translations: [Other forms of dyspnea] Onset: 05-23-2023 Episodic Other screening for suspected conditions (not mental disorders or infectious disease) (19 sources) Cardiovascular stress test abnormal; Translations: [Other nonspecific abnormal results of function study of cardiovascular system] Onset: 02-15-2022 Resolved: 12-01-2023 05-23-2023 Episodic Other skin disorders (2 sources) [...] W/AND (SUSP) EXPOS COVID-19] Onset: 04-12-2022 Unclassified (7 sources) Onset: 07-13-2023 Resolved: 12-01-2023 07-13-2023 Results Test Name Value Interpretation Reference Range Facility Cardiac Device Check - Remot neeta 02-14-2024 [facility] Work Phone: Radiology Study observation (narrative) [facility] Work Phone: XR CHEST 2 VIEWSon 4 XR CHEST 2 VIEWS Interpreted By: Sancho Gross, STUDY: XR CHEST 2 VIEWS; 11/09/2023 9:46 am INDICATION: Signs/Symptoms:Pacem marilyn. COMPARISON: 08/05/2023 ACCESSION NUMBER(S): [id number] ORDERING CLINICIAN: ANA M KUMARI FINDINGS: Left-sided pacemaker in place. CARDIOMEDIASTINAL SILHOUETTE: Cardiomediastinal silhouette is normal in size and configuration. LUNGS: Lungs are clear. ABDOMEN: No remarkable upper abdominal findings. BONES: No acute osseous changes. IMPRESSION: 1. No evidence of acute cardiopulmonary process. MACRO: None Signed by: Sancho Gross 11/10/2023 8:35 AM Dictation workstation: [id number] [facility] Comment on above: Order Comment: Repor t to [facility] registration on 11/09/2023 at 8:30 AM for chest x-ray and device check prior to appointment with Dr. Son at 10 AM Cardiac Device Check - Remot neeta 09-26-2023 [facility] [place] Work Phone: Radiology Study observation (narrative) [facility] Work Phone: US.doppler Upper extremity v n - [facility] 08-10-2023 Exam negative for acute deep venous thrombosis in the left upper extremity MACRO: None Signed by: Simone Ramos 08/10/2023 3:07 PM Dictation workstation: [id number] [facility] MMODAL Interpreted By: Simone Ramos, STUDY: [facility] US UPPER EXTREMITY VENOUS DUPLEX LEFT; 08/10/2023 2:47 pm INDICATION: Signs/Symptoms: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 COMPARISON: Portable chest 05 August 2023 ACCESSION NUMBER(S): [id number] ORDERING CLINICIAN: NAIMA WRIGHT TECHNIQUE: Vascular ultrasound [...] - 08/10/2023 Interpreted By: Simone Ramos, STUDY: VAS US UPPER EXTREMITY VENOUS DUPLEX LEFT; 08/10/2023 2:47 pm INDICATION: Signs/Symptoms: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 COMPARISON: Portable chest 05 August 2023 ACCESSION NUMBER(S): [id number] ORDERING CLINICIAN: NAIMA WRIGHT TECHNIQUE: Vascular ultrasound [...] Simone Ramos 08/10/2023 3:07 PM Dictation workstation: [id number] [facility] [place] Work Phone: Radiology Study observation (narrative) [facility] Work Phone: US.doppler Upper extremity v ein - leftOrdered By: Simone Ramos on 08-10-2023 [facility] Work Phone: VASC US UPPER EXTREMITY VENO US DUPLEX LEFTon 08-10-2023 VASC US UPPER EXTREMITY VENOUS DUPLEX LEFT Interpreted By: Simone Ramos, STUDY: VAS US UPPER EXTREMITY VENOUS DUPLEX LEFT; 08/10/2023 2:47 pm INDICATION: Signs/Symptoms: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 COMPARISON: Portable chest 05 August 2023 ACCESSION NUMBER(S): [id number] ORDERING CLINICIAN: NAIMA WRIGHT TECHNIQUE: Vascular ultrasound [...] Simone Ramos 08/10/2023 3:07 PM Dictation workstation: [id number] Normal [facility] Basic metabolic 2000 panelon 08-05-2023 Anion gap [Moles/Vol] 12 mmol/L 10 - 2 0 mmol/L [facility] Calcium [Mass/Vol] 9.6 mg/dL 8.6 - 10. 3 mg/dL [facility] Chloride [Moles/Vol] 102 mmol/L 98 - 10 7 mmol/L [facility] CO2 [Moles/Vol] 29 mmol/L 21 - 32 mmol/L [facility] Creatinine [Mass/Vol] 1.12 mg/dL 0.50 - 1.30 mg/dL [facility] GFR/1.73 sq M.predicted among non-blacks MDRD (S/P/Bld) [Vol rate/Area] 76 mL/min/{1.73_m2} - PINF [facility] Comment on above: Calculations of yang mated GFR are performed using the 2020 CKD-EPI Study Refit equation without the race variable for the IDMS-Traceable creatinine methods. https://jasn.asnjournals.org/content//ASN.2020 305365 Glucose [Mass/Vol] 95 mg/dL 74 - 99 mg/dL [facility] Interpretation and review of laboratory results Normal [facility] Potassium [Moles/Vol] 4.0 mmol/L 3.5 - 5.3 mmol/L [facility] Sodium [Moles/Vol] 139 mmol/L 136 - 145 mmol/L [facility] Urea nitrogen [Mass/Vol] 17 mg/dL 6 - 23 mg/dL [facility] Anion gap [Moles/Vol] 12 mmol/L Normal 10-20 [facility] Comment on above: Performed By: #### 2 4321-2 #### JAIMEE QURESHI ([id number]) [facility] [address] [place] [address] Calcium [Mass/Vol] 9.6 mg/dL Normal 8.6-10.3 [facility] Comment on above: Performed By: #### 2 4321-2 #### GRISELDAIBELIBRITTNEY WATTSJAIDEN MACKENZIE ([id number]) [facility] [address] [place] [address] Chloride [Moles/Vol] 102 mmol/L Normal 98-107 [facility] Comment on above: Performed By: #### 2 4321-2 #### GRISELDAIBELIBRITTNEY JAIDEN MACKENZIE ([id number]) [facility] [address] [place] [address] CO2 [Moles/Vol] 29 mmol/L Normal 21-32 [facility] Comment on above: Performed By: #### 2 4321-2 #### JAIMEE QURESHI ([id number]) [facility] [address] [place] [address] Creatinine [Mass/Vol] 1.12 mg/dL Normal 0.50-1.30 [facility] Comment on above: Performed By: #### 2 4321-2 #### GRISELDAIBDEION WATTS RIO MACKENZIE ([id number]) [facility] [address] [place] [address] Glomerular filtration rate/1.73 sq M.predicted 76 mL/min/1.73m*2 Normal >60 [facility] Comment on above: Result Comment: Calc ulations of estimated GFR are performed using the 2020 CKD-EPI Study Refit equation without the race variable for the IDMS-Traceable creatinine methods. https://jasn.asnjournals.org/content/early//ASN.2020 917626 Performed By: #### 2 4321-2 #### JAIMEE QURESHI ([id number]) [facility] [address] [place] [address] Glucose [Mass/Vol] 95 mg/dL Normal 74-99 [facility] Comment on above: Performed By: #### 2 4321-2 #### GRISELDAIBELIBRITTNEY QURESHI ([id number]) [facility] [address] [place] [address] Potassium [Moles/Vol] 4.0 mmol/L Normal 3.5-5.3 [facility] Comment on above: Performed By: #### 2 4321-2 #### JAIMEE QURESHI ([id number]) [facility] [address] [place] [address] Sodium [Moles/Vol] 139 mmol/L Normal 136-145 [facility] Comment on above: Performed By: #### 2 4321-2 #### JAIMEE QURESHI ([id number]) [facility] [address] [place] [address] Urea nitrogen [Mass/Vol] 17 mg/dL Normal 6-23 [facility] Comment on above: Performed By: #### 2 4321-2 #### JAIMEE QURESHI ([id number]) [facility] [address] [place] [address] 91181 CBC panel Auto (Bld)on 08-04 Erythrocyte distribution width (RBC) [Ratio] 13.0 % 11.5 - 14.5 % [facility] Hematocrit (Bld) [Volume fraction] 46.9 % 41.0 - 52.0 % [facility] Hemoglobin (Bld) [Mass/Vol] 16.1 g/dL 13.5 - 17.5 g/dL [facility] Interpretation and review of laboratory results Normal [facility] MCH (RBC) [Entitic mass] 31.5 pg 26.0 - 34.0 pg [facility] MCHC (RBC) [Mass/Vol] 34.3 g/dL 32.0 - 36.0 g/dL [facility] MCV (RBC) [Entitic vol] 92 fL 80 - 100 fL [facility] Nucleated RBC/100 WBC (Bld) [Ratio] 0.0 % [facility] Platelets (Bld) [#/Vol] 279 10*3/uL [facility] RBC (Bld) [#/Vol] 5.11 10*6/uL [facility] WBC (Bld) [#/Vol] 8.9 10*3/uL [facility] Erythrocyte distribution width (RBC) [Ratio] 13.0 % Normal 11.5-14.5 [facility] Comment on above: Performed By: #### 5 8410-2 #### JAIMEE QURESHI ([id number]) [facility] [address] [place] [address] Hematocrit (Bld) [Volume fraction] 46.9 % Normal 41.0-52.0 [facility] Comment on above: Performed By: #### 5 8410-2 #### JAIMEE QURESHI ([id number]) [facility] [address] [place] [address] Hemoglobin (Bld) [Mass/Vol] 16.1 g/dL Normal 13.5-17.5 [facility] Comment on above: Performed By: #### 5 8410-2 #### JAIMEE QURESHI ([id number]) [facility] [address] [place] [address]704 MCH (RBC) [Entitic mass] 31.5 pg Normal 26.0-34.0 [facility] Comment on above: Performed By: #### 5 8410-2 #### JAIMEE QURESHI ([id number]) [facility] [address] [place] [address] 98073 MCHC (RBC) [Mass/Vol] 34.3 g/dL Normal 32.0-36.0 [facility] Comment on above: Performed By: #### 5 8410-2 #### JAIMEE QURESHI ([id number]) [facility] [address] [place] [address] 29510 MCV (RBC) [Entitic vol] 92 fL Normal 80-100 [facility] Comment on above: Performed By: #### 5 8410-2 #### JAIMEE QURESHI ([id number]) [facility] [address] [place] [address] 55532 Nucleated RBC/100 WBC (Bld) [Ratio] 0.0 /100 WBCs Normal 0.0-0.0 [facility] Comment on above: Performed By: #### 5 8410-2 #### JAIMEE QURESHI ([id number]) [facility] [address] [place] [address] 95012 Platelets (Bld) [#/Vol] 279 x10*3/uL Normal 150-450 [facility] Comment on above: Performed By: #### 5 8410-2 #### JAIMEE QURESHI ([id number]) [facility] [address] [place] [address] 72628 RBC (Bld) [#/Vol] 5.11 x10*6/uL Normal 4.50-5.90 [facility] Comment on above: Performed By: #### 5 8410-2 #### JAIMEE QURESHI ([id number]) [facility] [address] [place] [address] 10209 WBC (Bld) [#/Vol] 8.9 x10*3/uL Normal 4.4-11.3 [facility] Comment on above: Performed By: #### 5 8410-2 #### JAIMEE QURESHI ([id number]) [facility] ([facility] [address] [place] [address] 15302 Electrophysiology studyon [facility] Work Phone: PT and aPTT panel Coag (PPP) on 08-05-2023 aPTT Coag (PPP) [Time] 34 s [facility] INR Coag (PPP) [Relative time] 1.0 {INR} 0.9 - 1.1 [facility] Interpretation and review of laboratory results Normal [facility] PT Coag (PPP) [Time] 11.0 s [facility] The APTT is no longer used for monitoring Unfractionated Heparin Therapy. For monitoring Heparin Therapy, use the Heparin Assay. [facility] aPTT Coag (PPP) [Time] 34 s Normal 27-38 [facility] Comment on above: Order Comment: The A PTT is no longer used for monitoring Unfractionated Heparin Therapy. For monitoring Heparin Therapy, use the Heparin Assay. Performed By: #### 3 4529-8 #### JAIMEE QURESHI ([id number]) [facility] [address] [place] [address] 365[address] INR Coag (PPP) [Relative time] 1.0 Normal 0.9-1.1 [facility] Comment on above: Order Comment: The A PTT is no longer used for monitoring Unfractionated Heparin Therapy. For monitoring Heparin Therapy, use the Heparin Assay. Performed By: #### 3 4529-8 #### JAIMEE WATTS RIO MACKENZIE ([id number]) [facility] ([facility] [place] [facility]) [address] [place] [id number] PT Coag (PPP) [Time] 11.0 s Normal 9.8-12.8 [facility] Comment on above: Order Comment: The A PTT is no longer used for monitoring Unfractionated Heparin Therapy. For monitoring Heparin Therapy, use the Heparin Assay. Performed By: #### 3 4529-8 #### JAIMEE QURESHI ([id number]) [facility] ([facility] [place]) [address] [place] [id number] TRANSTHORACIC ECHO (TTE) COM PLETEon 08-05-2023 TRANSTHORACIC ECHO (TTE) [address] [address] TRANSTHORACIC ECHOCARDIOGRAM REPORT Patient Name: LILIANA MICHAELS Reading Physician: [id number] Morris MD, [facility] Study Date: 08/05/2023 Ordering Provider: [id number] ANA M SALINAS MRN/PID: [id number] Fellow: Nurse: Date of /Age: 10 1965 / Character Artist: Eli Pisano RDCS Gender: M Additional Staff: Height: 162.56 cm Admit Date: Weight: 90.72 kg Admission Status: Outpatient BSA / BMI: 1.96 m2 / 34.33 Department Location: [place] [address] Echo Lab Blood Pressure: 128 /73 mmHg Study Type: TRANSTHORACIC ECHO (TTE) COMPLETE Diagnosis/ICD: Bradycardia, unspecified-R00.1 Indication: Abnormal EKG, Pre-EP CPT Codes: Echo Complete w Full Doppler-48157 Study Detail: The following Echo studies were [...] Area A2C: 18.9 cm2 [place] [employer] [place] A4C: 5.8 cm [place] [employer] [place] A2C: 5.5 cm LA Volume Index: 27.0 [...] 1.3 m/s (0.6-0.9m/s) PV Max P.6 mmHg [id number] Batsheva Morris MD, FACC Electronically signed on 08/05/2023 at 2:30:14 PM Final [facility] US Heart TransthoracicOrdere d By: Batsheva Morris on 08-05-2023 Aortic Valve Area by Continuity of Peak Velocity 2.42 cm2 [facility] Work Phone: Aortic Valve Area by Continuity of VTI 2.62 cm2 [facility] Work Phone: [phone] AV mn grad 4.0 mmHg [facility] Work Phone: [phone] AV pk grad 8.2 mmHg [facility] Work Phone: [phone] AV pk abiodun 1.43 m/s [facility] Work Phone: [phone] LA vol index A/L 29.3 ml/m2 [facility] Work Phone: LV A4C EF 62.4 [facility] Work Phone: LV biplane EF 60 % [facility] Work Phone: LVIDd 5.28 cm [facility] Work Phone: LVOT diam 2.00 cm [facility] Work Phone: MV avg E/e' ratio 7.78 [facility] Work Phone: MV E/A ratio 0.88 [facility] Work Phone: RV free wall pk S' 15.40 cm/s [facility] Work Phone: RVSP 23.4 mmHg [facility] Work Phone: Tricuspid annular plane systolic excursion 3.6 cm [facility] Work Phone: [facility] Work Phone: Heart Transthoracicon [place] [address] TRANSTHORACIC ECHOCARDIOGRAM REPORT Patient Name: LILIANA MICHAELS Reading Physician: [id number] Morris MD, [facility] Study Date: 08/05/2023 Ordering Provider: [id number] ANA M SALINAS MRN/PID: [id number] Fellow: Nurse: Date of /Age: 10 1965 / 58 Character Artist: Eli Pisano RDCS Gender: M Additional Staff: Height: 162.56 cm Admit Date: Weight: 90.72 kg Admission Status: Outpatient BSA / BMI: 1.96 m2 / 34.33 Department Location: [place] [address] Echo Lab Blood Pressure: 128 /73 mmHg Study Type: TRANSTHORACIC ECHO (TTE) COMPLETE Diagnosis/ICD: Bradycardia, unspecified-R00.1 Indication: Abnormal EKG, Pre-EP CPT Codes: Echo Complete w Full Doppler-35451 Study Detail: The following Echo studies were [...] Area A2C: 18.9 cm2 [place] [employer] A4C: 5.8 cm [place] [employer] A2C: 5.5 cm LA Volume Index: 27.0 [...] not included)... Batsheva Alexander MD - 08/05/2023 [place] [address] TRANSTHORACIC ECHOCARDIOGRAM REPORT Patient Name: LILIANA Quiñones Physician: [id number] Batsheva Morris MD, [facility] Study Date: 08/05/2023 Ordering Provider: [id number] ANA M SALINAS MRN/PID: [id number] Fellow: Nurse: Date of /Age: 10 1965 / 58 Character Artist: Eli Pisano GRACY Gender: M Additional Staff: Height: 162.56 cm Admit Date: Weight: 90.72 kg Admission Status: Outpatient BSA / BMI: 1.96 m2 / 34.33 Department Location: [facility] kg/m2 Echo Lab Blood Pressure: 128 /73 mmHg Study Type: TRANSTHORACIC ECHO (TTE) COMPLETE Diagnosis/ICD: Bradycardia, unspecified-R00.1 Indication: Abnormal EKG, Pre-EP CPT Codes: Echo Complete w Full Doppler-63660 Study Detail: The following Echo studies were [...] Area A2C: 18.9 cm2 [place] [employer] A4C: 5.8 cm [place] [employer] A2C: 5.5 cm LA Volume Index: 27.0 [...] 1.3 m/s (0.6-0.9m/s) PV Max P.6 mmHg [id number] Batsheva Morris MD, [facility] Electronically signed on 08/05/2023 at 2:30:14 PM Final [facility] Work Phone: XR CHEST 1 VIEWon 08-05-2023 XR CHEST 1 VIEW Interpreted By: Salvatore Clark, STUDY: XR CHEST 1 VIEW INDICATION: Signs/Symptoms:post implant. COMPARISON: None ACCESSION NUMBER(S): [id number] ORDERING CLINICIAN: ANA M KUMARI FINDINGS: No consolidation, effusion, edema, or pneumothorax. Pacemaker placed without pneumothorax. Position satisfactory. IMPRESSION: Status post pacemaker placement. Signed by: Salvatore Clark 08/05/2023 6:10 PM Dictation workstation: [id number] [facility] Comment on above: Order Comment: Vahe heard. XR Chest Single viewon 08-04 Status post pacemaker placement. Signed by: Salvatore Clark 08/05/2023 6:10 PM Dictation workstation: [id number] [facility] MM[facility]AL Interpreted By: Salvatore Clark, STUDY: XR CHEST 1 VIEW INDICATION: Signs/Symptoms:post implant. COMPARISON: None ACCESSION NUMBER(S): [id number] ORDERING CLINICIAN: ANA M KUMARI FINDINGS: No consolidation, effusion, edema, or pneumothorax. Pacemaker placed without pneumothorax. Position satisfactory. [facility] MMODAL Salvatore Clark MD - 08/05/2023 Interpreted By: Salvatore Clark, STUDY: XR CHEST 1 VIEW INDICATION: Signs/Symptoms:post implant. COMPARISON: None ACCESSION NUMBER(S): [id number] ORDERING CLINICIAN: ANA M KUMARI FINDINGS: No consolidation, effusion, edema, or pneumothorax. Pacemaker placed without pneumothorax. Position satisfactory. IMPRESSION: Status post pacemaker placement. Signed by: Salvatore Clark 08/05/2023 6:10 PM Dictation workstation: [id number] [facility] Work Phone: Radiology Study observation (narrative) [facility] Work Phone: XR Chest Single viewOrdered By: Salvatore Clark on 08-05-2023 [facility] Work Phone: ECG 12 lead (Clinic Performe d)on 07-22-2023 EKG shows marked sinus bradycardia rate of 41 bpm QRS ration 100 ms QT corrected he had a 91 ms. Rhythm strip shows the same pattern. [facility] Work Phone: CT LUNG CANCER SCREENINGon 0 [...] BATSHEVA ALVARADO Date: 2022-07-15 12:10 Normal [facility] [place] Office Visit (Cardiology)on 07-14-2022 Follow-up visit Diagnoses/Problems [...] we can help. You may also call [phone] for free resources and assistance.; Status:Complete - [...] ischemic evaluation. He underwent cardiac catheterization in [place] which showed no significant obstructive disease 3. [...] BY MOUTH FOUR TIMES A DAY NEEDED Pjlefe3b at bedtime Singulair 10 MG Oral TabletTAKE [...] Recorded: 14Jul2022 10:57AM Heart Rate34, L Radial Dmfxqsig072, LUE, Sitting Ylqhpmvnd29, LUE, Sitting Height5 ft 4 in Sarlpk014 lb BMI Rfifdashtj60.96 kg/m2 BSA Calculated1.92 Tobacco Usea) Yes Patient encouraged to st (more content not included)... Normal Joot[facility] Tobacco Screening.on 023 Adult depression screening assessment No [facility] [employer] DO Work Phone: Fall risk assessment a) No falls within the last year [facility] [employer] DO Work Phone: Tobacco use status CPHS a) Yes [facility] [employer] DO Work Phone: Tobacco Screening. Yes [facility] [employer] 600 DO Work Phone: CT ABD/PELV W [...] FLEX JACOBS Date: 2022-06-11 10:06 Normal [facility] [place] CBC AUTO DIFFon 05-07-2022 BASO # 0.1 103/ul Normal 0.0-0.1 [facility] Comment on above: Performed By: #### C BC #### [facility] [place] [facility] [address] [place] [address] Dr. Britt Mendoza Basophils/100 WBC (Bld) 1.6 % Normal 0.2-2.0 [facility] Comment on above: Performed By: #### C BC #### [facility] [place] [facility] [address] [place] [address] Dr. Britt Mendoza EO # 0.2 103/ul Normal 0.0-0.7 [facility] Comment on above: Performed By: #### C BC #### [facility] [place] [facility] [address] [place] [address] Dr. Britt Mendoza Eosinophils/100 WBC (Bld) 3.0 % Normal 0.9-7.0 [facility] Comment on above: Performed By: #### C BC #### [facility] [place] [facility] [address] [place] [address] Dr. Britt Mendoza Erythrocyte distribution width (RBC) [Ratio] 12.4 % Normal 11.0-15.0 [facility] Comment on above: Performed By: #### C BC #### [facility] [place] [facility] [address] [place] [address] Dr. Britt Mendoza Hematocrit (Bld) [Volume fraction] 43.2 % Normal 42.0-54.0 [facility] Comment on above: Performed By: #### C BC #### [facility] [place] [facility] [address] [place] [address] Dr. Britt Mendoza Hemoglobin (Bld) [Mass/Vol] 14.7 g/dL Normal 14.0-18.0 [facility] Comment on above: Performed By: #### C BC #### [facility] [place] [facility] [address] [place] [address] Dr. Britt Mendoza IG # 0.11 10e3/ul Critically high 0.00-0.03 [facility] Comment on above: Performed By: #### C BC #### [facility] [place] [facility] [address] [place] [address] Dr. Britt Mendoza IG % 1.4 % Critically high 0.0-0.5 [facility] Comment on above: Performed By: #### C BC #### [facility] [place] [facility] [address] [place] [address] Dr. Britt Mendoza LYMPH # 1.7 103/ul Normal 1.2-3.8 [facility] Comment on above: Performed By: #### C BC #### [facility] [place] [facility] [address] [place] [address] Dr. Britt Mendoza Lymphocytes/100 WBC (Bld) 21.6 % Normal 20.5-60.0 [facility] Comment on above: Performed By: #### C BC #### [facility] [place] [facility] [address] [place] [address] Dr. Britt Mendoza MANUAL DIFF REQ NO Normal [facility] Comment on above: Performed By: #### C BC #### [facility] [place] [facility] [address] [place] [address] Dr. Britt Mendoza MCH (RBC) [Entitic mass] 31.2 pg Normal 25.9-34.0 [facility] Comment on above: Performed By: #### C BC #### [facility] [place] [facility] [address] [place] [address] Dr. Britt Mendoza MCHC (RBC) [Mass/Vol] 34.0 g/dL Normal 29.9-35.2 [facility] [place] Comment on above: Performed By: #### C BC #### [facility] [place] [facility] [address] [place] [address] [address] Britt Mendoza MCV (RBC) [Entitic vol] 91.7 fL Normal 80.0-94.0 [facility] Comment on above: Performed By: #### C BC #### [facility] [place] [facility] [address] [place] [address] [address] Britt Mendoza MONO # 0.5 103/ul Normal 0.3-0.8 [facility] Comment on above: Performed By: #### C BC #### [facility] [place] [facility] [address] [place] [address] [address] Britt Mendoza Monocytes/100 WBC (Bld) 6.8 % Normal 1.7-12.0 [facility] Comment on above: Performed By: #### C BC #### [facility] [place] [facility] [address] [place] [address] Dr. Britt Mendoza NEUT # 5.0 103/ul Normal 1.4-6.5 [facility] Comment on above: Performed By: #### C BC #### [facility] [place] [facility] [address] [place] [address] Dr. Britt Mendoza Neutrophils/100 WBC (Bld) 65.6 % Normal 43.0-75.0 [facility] Comment on above: Performed By: #### C BC #### [facility] [place] [facility] [address] [place] [address] [address] Britt Mendoza Platelet mean volume (Bld) [Entitic vol] 9.7 fL Normal 9.5-13.5 [facility] Comment on above: Performed By: #### C BC #### [facility] [place] [facility] [address] [place] [address] [address] Britt Mendoza PLT 244 103/ul Normal 150-450 [facility] [place] Comment on above: Performed By: #### C BC #### [facility] [place] [facility] [address] [place] [address] [address] Britt Mendoza RBC 4.71 106/ul Normal 4.70-6.10 [facility] Comment on above: Performed By: #### C BC #### [facility] [place] [facility] [address] [place] [address] [address] Britt Mendoza WBC 7.6 103/ul Normal 4.0-11.0 [facility] Comment on above: Performed By: #### C BC #### [facility] [place] [facility] [address] [place] [id number] Britt Mendoza GLYCOHEMOGLOBIN A1Con 2021 ADA RECOMMENDATION SEE BELOW Normal [facility] Comment on above: Result Comment: ADA RECOMMENDED LIMIT 4.0 - 6.0 ADA THERAPEUTIC TARGET < 7.0 ACTION SUGGESTED > 7.0 Performed By: #### A 1C ####[facility] [place] [address] [place] [address]Dr. Britt Mendoza Glucose [Mass/Vol] 117 mg/dL Normal [facility] Comment on above: Performed By: #### A 1C ####[facility] [place] [address] [place] [address]Dr. Britt Mendoza HbA1c (Bld) [Mass fraction] 5.7 % Normal 4.5-6.2 [facility] Comment on above: Performed By: #### A 1C ####[facility] [place] [address] [place] [address]Dr. Britt Mendoza LIPID PROFILEon 05-07-2022 CHOL-HDL RATIO NORM SEE BELOW Normal [facility] Comment on above: Result Comment: 3.3 - 4.4 LOW RISK 4.4 - 7.1 AVERAGE RISK 7.1 - 11.0 MODERATE RISK >11.0 HIGH RISK Performed By: #### B MP, LIVER, LIPID, TSH ####[facility] [place] [address] [place] [address]Dr. Britt Mendoza Cholesterol [Mass/Vol] 235 mg/dL Critically high <=200 [facility] Comment on above: Performed By: #### B MP, LIVER, LIPID, TSH ####[facility] [place] [address] [place] [address]Dr. Britt Mendoza Cholesterol in HDL [Mass/Vol] 40 mg/dL Normal 40-60 [facility] Comment on above: Performed By: #### B MP, LIVER, LIPID, TSH ####[facility] [place] [address] [place] [id number]. Britt Mendoza Cholesterol in LDL [Mass/Vol] 156.8 mg/dL Normal [facility] Comment on above: Performed By: #### B MP, LIVER, LIPID, TSH ####[facility] [place] [address] [place] [address]Dr. Britt Mendoza Cholesterol.total/Viola sterol in HDL [Mass ratio] 5.9 {ratio} Normal [facility] Comment on above: Performed By: #### B MP, LIVER, LIPID, TSH ####[facility] [place] [address] [place] [address]Dr. Britt Mendoza HDL NORMAL > or = 60 mg/dl - LOW CARDIOVASCULAR RISK <40 mg/dl - HIGH CARDIOVASCULAR RISK Normal [facility] Comment on above: Performed By: #### B MP, LIVER, LIPID, TSH ####[facility] [place] [address] [place] [address]Dr. Britt Mendoza LDL CALC NORMAL SEE BELOW Normal [facility] Comment on above: Result Comment: <100 mg/dl OPTIMAL 100 - 129 mg/dl NEAR OR ABOVE OPTIMAL 130 - 159 mg/dl BORDERLINE HIGH 160 - 189 mg/dl HIGH >190 mg/dl VERY HIGH Performed By: #### B MP, LIVER, LIPID, TSH ####[facility] [place] [address] [place] [id number]. Britt Mendoza Triglyceride [Mass/Vol] 191 mg/dL Critically high <=150 [facility] [place] Comment on above: Performed By: #### B MP, LIVER, LIPID, TSH ####[facility] [place] [address] [place] [id number]. Britt Mendoza VLDL CALC 38.2 mg/dL Normal [facility] Comment on above: Performed By: #### B MP, LIVER, LIPID, TSH ####[facility] [place] [address] [place] [address]Dr. Britt Mendoza LIVER PROFILEon 05-07-2022 Albumin [Mass/Vol] 3.6 g/dL Normal 3.4-5.0 [facility] Comment on above: Performed By: #### B MP, LIVER, LIPID, TSH ####[facility] [place] [address] [place] [address]Dr. Britt Mendoza Albumin/Globulin [Mass ratio] 1.1 {ratio} Normal [facility] Comment on above: Performed By: #### B MP, LIVER, LIPID, TSH ####[facility] [place] [address] [place] [address]Dr. Britt Mendoza ALP [Catalytic activity/Vol] 84 U/L Normal 46-116 [facility] Comment on above: Performed By: #### B MP, LIVER, LIPID, TSH ####[facility] [place] [address] [place] [address]Dr. Britt Mendoza ALT [Catalytic activity/Vol] 34 U/L Normal 16-63 [facility] Comment on above: Performed By: #### B MP, LIVER, LIPID, TSH ####[facility] [place] [address] [place], [place] [address]Dr. Britt Mendoza AST [Catalytic activity/Vol] 21 U/L Normal 15-37 [facility] Comment on above: Performed By: #### B MP, LIVER, LIPID, TSH ####[facility] [place] [address] [place], [place] [address]Dr. Britt Mendoza BILI, CONJUGATED 0.1 mg/dL Normal 0.0-0.2 [facility] Comment on above: Performed By: #### B MP, LIVER, LIPID, TSH ####[facility] [place] [address] [place], [place] [address]Dr. Britt Mendoza Bilirubin [Mass/Vol] 0.4 mg/dL Normal 0.2-1.0 [facility] Comment on above: Performed By: #### B MP, LIVER, LIPID, TSH ####[facility] [place] [address] [place], [place] [address]Dr. Britt Mendoza Globulin (S) [Mass/Vol] 3.4 g/dL Normal [facility] Comment on above: Performed By: #### B MP, LIVER, LIPID, TSH ####[facility] [place] [address] [place], [place] [address]Dr. Britt Mendoza Protein [Mass/Vol] 7.0 g/dL Normal 6.4-8.2 [facility] Comment on above: Performed By: #### B MP, LIVER, LIPID, TSH ####[facility] [place] [address] [place] [address]Dr. Britt Mendoza PROF CHEM 8 (BAS METB)on Anion gap [Moles/Vol] 13.8 mmol/L Normal Th [facility] Comment on above: Result Comment: Prev iously reported as: -2.3 On 05/07/2022 13:50 By DM9 Performed By: #### B MP, LIVER, LIPID, TSH #### [facility] [place] [facility] [address] [place] [address] Dr. Britt Mendoza Calcium [Mass/Vol] 9.2 mg/dL Normal 8.5-10.1 [facility] Comment on above: Performed By: #### B MP, LIVER, LIPID, TSH #### [facility] [place] [facility] [address] [place] [address] Dr. Britt Mendoza Chloride [Moles/Vol] 99 mmol/L Normal 98-107 [facility] Comment on above: Result Comment: Prev iously reported as: 106 On 05/07/2022 13:50 By DM9 Performed By: #### B MP, LIVER, LIPID, TSH #### [facility] [place] [facility] [address] [place] [address] Dr. Britt Mendoza CO2 [Moles/Vol] 27.3 mmol/L Normal 21.0-32.0 [facility] Comment on above: Result Comment: Prev iously reported as: 29.2 On 05/07/2022 13:50 By DM9 Performed By: #### B MP, LIVER, LIPID, TSH #### [facility] [place] [facility] [address] [place] [address] [address] Britt Mendoza Creatinine [Mass/Vol] 1.12 mg/dL Normal 0.70-1.30 [facility] Comment on above: Performed By: #### B MP, LIVER, LIPID, TSH #### [facility] [place] [facility] [address] [place] [address] Dr. Britt Mendoza EGFR-AF DJIBOUTIAN >60 Normal >=60 [facility] Comment on above: Performed By: #### B MP, LIVER, LIPID, TSH #### [facility] [place] [facility] [address] [place] [address] [address] Britt Mendoza EGFR-NON AF DJIBOUTIAN >60 Normal >=60 [facility] Comment on above: Performed By: #### B MP, LIVER, LIPID, TSH #### [facility] [place] [facility] [address] [place] [address] [address] Britt Mendoza Glucose [Mass/Vol] 108 mg/dL Critically high 74-106 [facility] Comment on above: Performed By: #### B MP, LIVER, LIPID, TSH #### [facility] [place] [facility] [address] [place] [address] [address] Britt Mendoza Potassium [Moles/Vol] 4.1 mmol/L Normal 3.5-5.1 [facility] Comment on above: Result Comment: Prev iously reported as: 3.9 On 05/07/2022 13:50 By DM9 Performed By: #### B MP, LIVER, LIPID, TSH #### [facility] [place] [facility] [address] [place] [address] [address] Britt Mendoza Sodium [Moles/Vol] 136 mmol/L Normal 136-145 [facility] Comment on above: Result Comment: Prev iously reported as: 129 On 05/07/2022 13:50 By DM9 Performed By: #### B MP, LIVER, LIPID, TSH #### [facility] [place] [facility] [address] [place] [address] [address] Britt Mendoza Urea nitrogen [Mass/Vol] 26.0 mg/dL Critically high 7.0-18.0 [facility] Comment on above: Performed By: #### B MP, LIVER, LIPID, TSH #### [facility] [place] [facility] [address] [place] [address] [address] Britt Mendoza Urea nitrogen/Creatinine [Mass ratio] 23.2 mg/mg Normal [facility] Comment on above: Performed By: #### B MP, LIVER, LIPID, TSH #### [facility] [place] [facility] [address] [place] [address] [address] Britt Mendoza TSHon 05-07-2022 TSH 0.828 uIU/mL Normal 0.358-3.740 [facility] Comment on above: Performed By: #### B MP, LIVER, LIPID, TSH ####[facility] [place] [address] [place], [place] [address]Dr. Britt Mendoza VITAMIN D 25 OHon 05-07-2022 VIT D 25-OH 45.6 ng/mL Normal [facility] [place] Comment on above: Performed By: #### V ITAD, PSASC #### [facility] [place] [facility] [address] [place] [address] [address] Britt Mendoza VIT D RANGES SEE BELOW Normal [facility] Comment on above: Result Comment: <20 ng/mL Vit D deficient 20 - <30 ng/mL Vit D insufficient 30 - 100 ng/mL Vit D sufficient >100 ng/mL Potential Toxicity Performed By: #### V ITAD, PSASC #### [facility] [place] [facility] [address] [place] [address] [address] Britt Mendoza Covid-19 PCR (CVDTBH)on SARS-CoV-2 (COVID-19) RNA KATT+probe Ql (Unsp spec) Detected Critically abnormal NOT DETECTED [facility] [place] Comment on above: Result Comment: This test is not yet approved or cleared by the [place] FDA. When there are no FDA-approved or cleared tests available, and other criteria are met, FDA can make tests available under an emergency access mechanism called an Emergency Use Authorization (EUA). The EUA for this test is supported by the [place] of Health and Human Service's declaration that [...] be used). Performed By: #### C VDTBH ####[facility] [place] [address] [place] [id number]. Britt Mendoza Cardiac Stress Teston 2021 Cardiac Stress Test [address], [address], [place] [address] Exercise Stress Test Patient Name: LILIANA MICHAELS JR. Ordering Physician: Melanie Ty MD Study Date: 02/15/2022 Reading Physician: Melanie Ty MD MRN/PID: [id number] Supervising Physician: [id number] Yovani Rivera MD Accession/Order#: [id number] Referring Physician: VALENTINO TY Date of : 1965 PCP: Ishmael Simon Gender: M Fellow: Height: 162.56 cm Nurse: Yunior Bhatti RN Weight: 81.65 kg Character Artist: SAEID BSA: 1.87 m2 Technologist: BMI: 30.90 kg/m2 Additional Staff: Age: 56 years cc report to: Patient Location: cc report to: Melanie Ty MD Study Type: Cardiac Stress Test Diagnosis/ICD: R94.31-Abnormal electrocardiogram [ECG] [EKG]; R00.1-Bradycardia, unspecified; R06.00-Dyspnea, unspecified Indication: Dyspnea Procedure/CPT: Stress Test Interpretation-70192 ; Stress Test Supervision-[id number] Falls Risk: Low: Patient has low risk [...] 7. An element of chronotropic incompetency noted. [id number] Valentino Ty MD Electronically signed on 02/16/2022 at 2:52:20 PM Final Normal [facility] Cardiac Stress Test Please click on the link to view the study images [facility] Work Phone: Cardiac Stress Test MP-No rth [facility] y 250 DO Work Phone: Office Visit [...] Status:Hold For - Scheduling,Retrospec tive Authorization; Requested for:38Pqf9021; Class 1 obesity with body mass index (BMI) of 30.0 to 30.9 in adult Healthy Weight Tips; Status:Complete - Retrospective Authorization; Done: [id number] Some eating tips that can help you lose weight.; Status:Complete - Retrospective Authorization; Done: 74Vkf4324 Sinus bradycardia You need to stop smoking. Though it is not easy, more than half of all adult smokers have quit. We encourage you to write down all the reasons you should quit smoking and set a quit date for yourself. Ask us how we can help. You may also call 5-541-YLHT-NOW for free resources and assistance.; Status:Complete - Retrospective Authorization; Done: 68Eyc3362 SocHx: Current smoker Continue with our present treatment plan.; Status:Complete - Retrospective Authorization; Done: 63Oae6689 Tobacco Use Screening; Status:Complete; Done: 35Zux0979 Patient Instructions Please bring all medicines, vitamins, [...] This led to a cardiac evaluation in [place] and its not clear to me whether [...] Oral Capsule Delayed ReleaseTAKE 1 CAPSULE Daily Ghgbde7k at bedtime Sin (more content not included)... Normal [facility] Tobacco Screening.on 022 Adult depression screening assessment No [facility] [employer] 600 DO Work Phone: Fall risk assessment a) [facility] the [facility] 600 [facility] Work Phone: Tobacco use status CP a) Yes [facility] Eachpal DO Work Phone: Tobacco Screening. Yes [facility] [employer] 600 DO Work Phone: Covid-19 PCR (CVDTBH)on SARS-CoV-2 (COVID-19) RNA KATT+probe Ql (Unsp spec) Not detected Normal NOT DETECTED [facility] [place] Comment on above: Result Comment: This test is not yet approved or cleared by the [place] FDA. When there are no FDA-approved or cleared tests available, and other criteria are met, FDA can make tests available under an emergency access mechanism called an Emergency Use Authorization (EUA). The EUA for this test is supported by the Lap Machine Tender of Health and Human Service's (HHS's) declaration [...] SARS-CoV-2. Performed By: #### C VDTB #### [facility] [place] [facility] [address] [place], [place] [address] Dr. Britt Mendoza Covid-19 PCR ([facility])on 11-07 SARS-CoV-2 (COVID-19) RNA KATT+probe Ql (Unsp spec) Not detected Normal NOT DETECTED [facility] [place] Comment on above: Result Comment: This test is not yet approved or cleared by the [place] FDA. When there are no FDA-approved or cleared tests available, and other criteria are met, FDA can make tests available under an emergency access mechanism called an Emergency Use Authorization (EUA). The EUA for this test is supported by the Lap Machine Tender of Health and Human Service's (HHS's) declaration [...] with SARS-CoV-2. Performed By: #### C VDTB ####[facility] [place] [address] [place], [place] [address]KrDr. Britt Mendoza XR CHEST 2 Von 10-01-2021 [...] by: FLEX JACOBS Date: 2021-10-01 09:30 Normal [facility] Ambulatory Clinical Summaryo n 03-05-2021 Ambulatory Clinical Summary {[id number]}CD:[id number] Normal [facility] Historical Records Officeon 03-05-2021 Historical Records Office [id number] #[id number]:127 Normal [facility] Patient Educationon 03-05-20 Patient Education Urology [...] these instructions at home: Medicines ? Take vwoy-etm-cgbzhsk and prescription medicines only as told by [...] your (more content not included)... Normal [facility] Urology Office/Clinic Noteon 03-05-2021 Urology Office/Clinic Note Chief Complaint OV for ED HPI Staff Pt is here for ED sx. Pt was last seen by BRITTANEY in 2019. S/P Urolift 09/14/2018, S/P Cysto [...] order. Ordered: Office Visit Level 4 Est 49865 2. Hypogonadism male (E29.1: Testicular hypofunction) noted in hx. testosterone 10/16/ - 79 (normal range 264-916). however pt reports good energy, strength, stamina, and good interest in sex. lost 60# over the last couple years with diet. advised that testosterone won't necessarily improve his ED and since he's not c/o any sx associated with low T we will hold off on checking/treating at this time. Ordered: Office Visit Level 4 Est 44102 3. BPH with urinary obstruction (N40.1: Benign prostatic hyperplasia with lower urinary tract symptoms) s/p Urolift September 2018. Pt is currently taking no bladder/prostate medication and is mostly satisfied with overall symptom control. has nocturia but attributes this to diuretics. Pt prefers to continue with no changes at this time. PCP checking PSAs per pt. Ordered: Office Visit Level 4 Est 63241 Orders: Urnls Dip Stick Auto w/o Microscopy POC 77006 offered f/u 1 yr but pt prefers PRN. Total time spent reviewing previous notes/results/batch unit treater al documents, preparing the chart, conducting the encounter with the patient and family, ordering tests/medications, and documenting the encounter was 30 minutes. Follow-up With When Contact Information SIMONE JEAN BAPTISTE DC [address] [place] [address]- Additional Instructions: Patient Education Erectile [...] powde (more content not included)... Normal [facility] Comment on above: Result Comment: Elec tronically Signed By: TOMEKA SANCHEZ PA-C.br\Date and Time Signed: 03/05/21 12:24 EDT MRI PELVIS WO CONTRASTon MRI PELVIS WO CONTRAST [facility] Department of Radiology [address] [place] [id number] Patient Name: LILIANA MICHAELS : 1965 Sex: M Age: Race: White Pt. Location: 18 Patient Status: Ordered Date: 09/10/2020 3:35:00 PM Completed Date: 10/03/2020 08:34 AM Requesting Provider: SIMONE RUIZ Attending Provider: Report Copy To: Signs & Symptoms: R10.2 Pelvic and perineal pain I10 History: [place], Right FOREIGN per clinic will fax SS wiota auth# [id number] 09/16/20-10/17/20 cpt code 76524 *mla Comments: Right groin to r/o an [...] spine. Electronically signed: Dinh Miller. Transcribed by: [email or web address], User Resident: Electronically Signed by: DINH MILLER @ 10/03/2020 09:57 AM Normal [facility] Comment on above: Order Comment: Right groin to r/o an adductor tear; iliopsoas bursitis or injury Operative Reporton Operative Report MR#: [id number] [facility] Pt. Name: Liliana Michaels Room #: [...] Ruiz MD Date Trans: 09/10/2020 11:40 P/eva DN_[id number] cc: Ishmael Simon M.D. [address] [place] [address] [place] [facility] Coding Summary.on 09-01-2020 Coding Summary. CD:[id number] Gh0bWw+PGhlYWQ+PE1FV ESdN57jcIOdmM3TI2pCW P6HBEWUUGBQBE6PFS4ul YT4KLigJ2MfuwKl LxkbqGWsUB65VTt8AKT4 pPooORscpT9euMYpT2o3 CnJbSR63aW40GYcrMENm XhH5ObSixpccbHHn L8lxOrAduGPyKoe+PHRh YmxlIHdpZHRoPScxMDAl ZxJyqDhuGQ1zJp5jUHFm LWNvbGxhcHNlOiBj l4rhCBEaDUocJN8rkChr Q1QkqRR2QGYwc8m7Wu37 dHI+ZJBmZGH9fOduBCxj t568PvVqf7zrHDV7 kUKyIWoxBAB6N30tj8T1 QIFgMHOeZTJ4vTQ5oB8c vEtsyoutL1ZfcZLaEiG3 TXY4pFWnnM3pdOin bmbwaT2mHwo+N63YPS6W DTXLVU9YPef5I6ChCesr dHI+EA77NOVpZP80hAKk tDRbv4veuIq4NrHs GFGePIB2tMvhFBbmj0Zz HLKtF22cvVOuz8Y4TZAm zUhweNZiSzOhxJJ7jO9k UOtnlkkyq5pbomzs Hzxdg5lrnl24gN36D37l BJxeXLMvPJX3NZMvVUXz fXjebt3lcZ1nMj5+IDxj q4kwz9gnvQd1IpBo BPZtwjFbmIdiVPN0w5Zd Wo88U6DboBdts0YsWxs9 pz24bXEpa4O2sST4WOep TADsjP4qCRguMtC0 TZNrGfPwfI08qIPnMTsw Uy8rsJrgqGvlWN0mRSCn hzcvLAZohY0fEUUdgRJi uXfgGV2jUIQzytmr x117LnUwUFN1QHOsgBLl J0LzrT4nYqExQGRdTXFf A4UedUDaSZztZ458PAlw DbI7KQBelpSmQ9Oh YRFlkBgkPzM0d4A7Py4V f1QqtddwNRT6FRlvZDC9 KfQ9SoWdWwQ6C0FdTtx6 HHFwbOuiVR3iV9Ll HCNxlvfhwtzcjAT3TJZk XQVzxA78lAZlEVqpVo6k m2Q6u628OOKkPJWywH64 Qc8hhEsuMLShmBCZ mS8zhukfj9csvejiEhSm FHDlCGh1SRi5KSPqnSwr EfHaRVJ2WbP1XAS3wYJn gI4okWysokuqwL7i Oyc+F65zbM3mCDE0CHF8 ovowQQVvpnHiZN26FU54 E3CuSrykgUPmwVX+PGRp ovNiyQsnOJ5xQvVq d8xpy6AyOVyrE0AdPYOk QDxeHdd3GFFoNKN6sSS3 uD7lQJWaGXbfa9Z7wJR3 O4DacdKjqd9ri8yy YRXdYCgdT64huIHxk8H2 JWPlpQV0RLRsuAnyYqDp cN38Zil+DTNvnXrkp8Bg Vxzxk5mgb6pubLa7 IjMwJSIgdmFsaWduPSJ0 k2DiFl05C23bJEvyRDKu RYLwPJAyHLVzuIklux1s zI5tTz4+PGNvbCB3 wHP4hW2eJMXiUrH0UDal X947JoUwkFKoQyudt0vd q9ppoFi1AyVkIWSinoZs yEtqGDM2c7WeWc83 C95oAUepPZHnJJCqHHMo WEWveVrwtk7fgU2lJx3+ XG2co8fjqw09yI81dSM+ LZNtIGX3tKpgIYkw ASCtlA6hQQsdYpL2ZODk GlPaiA71tTNkGNkdKq8w cUjqiGdcLJ8kIEOnsfep k113KmPmh5hrIMWi fFQzEQxlUPC1J60ng3R2 ORJrBPEhTDC6vPF9eO4m bGlnbjogbGVmdDsgdmVy tCfjQFbvULsmU423 IHRvcDsnPlBhdGllbnQg PrNmVPe8E5WdYsg5CBCi lAphVD5kgKYyQBjlEf6n qMgujOgfRF9pNQCf yhvcx557JcTzy2qpJNQb fVHqQKcnXQD7V94wh2J2 RHHgZPMgQDX5tNK5nJ7u bGlnbjogbGVmdDsg twGhuJtsIUmtWAfhR687 IHRvcDsnPkJpcnRoIERh sFI3WW74BR91sCTxj5P8 fUA7C3JdFKBywlzx jpayeFJ7XKCoCGBaaT50 Qe1pfJxaNc4qYDBuVMJ2 BBOdsKRrM3JizL2xHtAr SKGdJXIzS9ZnlFTn DVoqG748LFhrYbM4EZMs jxRpW7XcWWYdjOecNwW1 c8N6Bc6TE7V5JO24UC34 yEVeg8R8bAS0E9Zu MOMqbtqabelolBO6PDNr NMCpeU51Tb5ctVwhHn3x QMTiFHW2APFljXHaX5Hz xG5oEfKbIYHxQMWe O5KccZXjCWtjD812BNnp RyZ7KRJnouRrB6ZjQZSb gYljTsH3n9K9Vo5SVVk2 HD51GD59dQJqe5G6 bPR8D1MbQOTplvnegldd tAK9HAAdBCInmZ20Db2g pUxiEf4mIIEdFCY8CFTg vIEwB5OmuA2eJxTy MLHnVUJzD4PonELmGEhp F289WTsjFuE7GTIhjyVx D1NvBHAqoJneJeV7m1I7 Op8OTDQeUU90ITS2 uVP1ZM39HR74I9HlFwrv dGFibGU+PHRhYmxlIHdp ZHRoPScxMDAlJyBzdHls MG8rIr6lLBOkKSQt gAsdkAVtWmArg2hbROSy YAezMS6buBcrM2GvdRC4 JHDvs7i2Wr08M70kZ2Ko dXA+ZNLhpPM6pDH6 iB4sBsIeWzM0WJogC449 QcXjeKUkEwkdj2iuq2to dBj9BqN6NCHoizPhfNvq XHG3h5MlZb68T73r IHdpZHRoPSIxNSUiIHZh jYujah2pzU9nWv9+PGNv cPJ4sBO6kW2bJaGzBxP4 ZGhzL289DjYeoYIy Sfzqc8ctk3zwmPr2GzNg IHQlhdHkkDtqCVH7l1Xj Nb94O2JxgGqqx9RnZni0 cp90zFRwu7Y6oSM7 N2UqMKYnjbqskYTpuEsj MW2lXOJdrxieRFIgsC3x TNVmW0u4UmHvCdU6ZHtc O8KicjE1BIBjfRQk LWgvGCQ3J75af7G1XXSs ETNmIFF2wMU5jY1pfHpy bjogbGVmdDsgdmVydGlj LIfyVFrnN022KWSi nTohHSAxwX1gKNRzsJVh dCivAL6yVHVdecntMqhI LC0LYcmwExUUKChjDFks dGQ+FHGfUCZ0zXaf KUqbYRJyxD5vFWCpH3f6 SaKhZqW4SGizW4NsWNJy acqkNw92mK0cXxUyTgJ6 CYhvM8MttdH3HTTl sVFbUZxzSUE8U54hh3J9 LMXhEDQeZFI1oCX7dQ9g bGlnbjogbGVmdDsgdmVy oUujCWgjCToeM739 ZCXwbIxsZmNxLuP0LfS5 KyH0Z5AqMfy4CMQpgCcy GJ9vpOIwTFlrJe8euHtj xLflSU4iONHicaci RGKcuL3xECDrvJEvlFfv AK9eJTTgxvald247UgJg XQZ5BWYdnWFuI1BpxH3d CtAiVKYxWMZcZ5Lk zIBsGEljV194JFzyYwK4 WJLissOvJ8HgXXUdpPdz WkZ8f8G7Af50JdYIUUXl czwvdGQ+PHRkIHN0 aKtvYNsbYXKshC9aVIGc A3n8NaXxPxK5GZpjP5Rq DMTpseogRm23eE8cXxZz IoS5AFicY4XsapX0 FGMekLHpJLtiMGS3J21j k0E4ZNToZOHcQIZ0rZF0 dO7xiHwxdulcnXTkrUei dmVydGljYWwtYWxp X596VCIjmRhnUj0mkTX3 D9CeVba5PCChySomTU9m rETqSHhpOx8fmRrmlPzi HN2hJNRpjtbsGAFf dG4jMLUdlYWynJkyXF2l CGDeorqcq999VdMwPEF6 WXTwvACxI8SasN3cLjLu HQDsOLRyD9SttQJw IBhwV108LIcxVrJ9APAt twYuA8VzEFXspVneQnX5 o4T9Gw9FhAHzI8AeA8w4 Q4SfTndmxLJ+PC90 RJPnTM14cUCztIDxr4jo uPb3MiTnIJXgOKE2nTei KRmqn1CaSUWeU10tzZQg i8S4DESwmGzhhPAk BnIdjWL7bR7pERosegxp x9ngodqhPnbzc5ovky09 zZ25T03dXBcyJQLgLMYl HUAsFAZxzQdvhe7r aY0oAx5+URTvmNJ0eOK7 rQ1qWuEcBsD2RNazY247 AfBjaQHeMlcvl7xvz5zf dZr2ToLbTFBrfaUa wCcwBOI5i4PfLa46S36q IHdpZHRoPSIyMCUiIHZh gIynew4ocI3aDc9+PC9j g9luvw18bW22cKL+ HYMsGOV9xAmaBBjqDQZg wQ0uNPwiEzW5LYZeRzUc aK40pIUpDDazRk3peNmf wLseQZ8zPFJexsaj k246RaKbu8dgKVFsoCXy XOzfSES8D16sl4Y5KDLg EYOoELE0sFD5jO7rqTwb bjogbGVmdDsgdmVy cKqoBFsaPQygK492HHVu pPddZgMdqTCoS5fjhqBW FN5qYmlmrAJ+PHRkIHN0 gFpzTHuzLZMokC4j WDTjW5h7IgOsUdM8RDnu E6IrxqC0FTKjpPAgUKWu kECNgN4zlxymr8nqwhbv TeVyVMQmFVz9PWg5 QUFphKpiIxSpFHP9SdW5 PBX2tYDciQ5psUuxkwfa dQ4kHko+RklOOjwvdGQ+ XGEqDDT4dJwmZLqb LHMauU1fHOVrX6k8YhGu JvO7BCyeX0OxdaZ7IGOx bIOjPGNobNLRaF3tqgba d2epceljClElWTZy DXc7MRq4QBKjrPrkAoRo WGT8RhV9YMH7tJSacM4d hRjumpxmtH6iNvs+TVJO OjwvdGQ+PHRkIHN0 eNrxPGhoEJFrqA9jTPXu K2u7TmVqXlX3JRhlY0Rr fzO4JEGybOLgDUCmsRQX wQ7nvywpi3aqvixc MlDiEABoJVt9GEm9ZFFf gPjsCxQfFCN2XiH0PVT7 xLGfrZ6xuVuupyvgoW5z Oyc+YWS2WCQ9IM57 HB06R2OlXchkmEFueFD+ PHRhYmxlIHdpZHRoPScx DEHlGjOivOhjYA4jWb6n ZGVyLWNvbGxhcHNl OiBj (more content not included)... [facility] Auto Diffon 08-24-2020 Basophils/100 WBC (Bld) 1.0 % Normal 0.0-2.0 [facility] Comment on above: Order Comment: Order Added by Crystal Expert. Performed By: #### 1 3842886, 9500351, 4105082, 43643345, 0547564, 1458824, 86129870, 75242653 ####[facility] [address] [place] [address] Basophils/Leukocytes Auto (Bld) [Pure # fraction] 0.1 E9/L Normal 0.0-0.2 [facility] Comment on above: Order Comment: Order Added by Crystal Expert. Performed By: #### 1 5839615, 4035889, 0845176, 45731379, 1807668, 1876879, 97131393, 26489421 ####[facility] [address] [place] [address] Eosinophils/100 WBC (Bld) 2.5 % Normal 0.0-8.0 [facility] Comment on above: Order Comment: Order Added by Crystal Expert. Performed By: #### 1 8076391, 8860103, 7505081, 96300150, 4340464, 1136584, 10560545, 44899411 ####[facility] [address] [place] [address] Eosinophils/Leukocytes Auto (Bld) [Pure # fraction] 0.3 E9/L Normal 0.0-0.5 [facility] Comment on above: Order Comment: Order Added by Discern Expert. Performed By: #### 1 8290091, 7759542, 3671817, 64582358, 4942414, 2039462, 75113403, 35369848 ####[place] [address] [place] [address] Lymphocytes/100 WBC (Bld) 21.0 % Normal 14.0-50.0 [facility] Comment on above: Order Comment: Order Added by Crystal Expert. Performed By: #### 1 6548505, 9339293, 0705869, 80311148, 3922510, 5508100, 47960155, 60570788 ####[place] [address] [place] [address] Lymphocytes/Leukocytes Auto (Bld) [Pure # fraction] 2.1 E9/L Normal 1.0-4.0 [facility] Comment on above: Order Comment: Order Added by Discern Expert. Performed By: #### 1 9585978, 8184768, 8242666, 01944088, 6191336, 6131767, 13048777, 68994647 ####[place] [address] [place] [address] Monocytes/100 WBC (Bld) 6.2 % Normal 4.0-14.0 [facility] Comment on above: Order Comment: Order Added by Discern Expert. Performed By: #### 1 4762341, 1572611, 3598776, 96648662, 8241867, 1810892, 65118692, 53291492 ####[address] [address] Monocytes/Leukocytes Auto (Bld) [Pure # fraction] 0.6 E9/L Normal 0.2-1.0 [facility] Comment on above: Order Comment: Order Added by Discern Expert. Performed By: #### 1 0242239, 8913945, 8206131, 24912148, 2134876, 4634717, 52121134, 56770983 ####[place] [place] [address] Neutrophils/100 WBC (Bld) 69.3 % Normal 36.0-75.0 [facility] Comment on above: Order Comment: Order Added by Discern Expert. Performed By: #### 1 2437435, 1588364, 8885661, 00908978, 0394516, 2490720, 39320576, 18761618 ####[place] [place] [address] Neutrophils/Leukocytes Auto (Bld) [Pure # fraction] 6.9 E9/L Normal 2.0-7.5 [facility] Comment on above: Order Comment: Order Added by Discern Expert. Performed By: #### 1 1046125, 6401443, 0088457, 64652154, 3110677, 2072915, 23372153, 00415673 ####[facility] [address] [place] [address] BMPon 08-24-2020 Creatinine [Mass/Vol] 1.1 mg/dL Normal 0.5-1.3 [facility] Comment on above: Performed By: #### 1 5750854, 6465197, 9347218, 49740484, 0968433, 5514583, 66926340, 18932722 ####[facility] [address] [place] [address] Urea nitrogen [Mass/Vol] 19 mg/dL Normal 5-21 [facility] Comment on above: Performed By: #### 1 6077712, 8177807, 4386697, 03695050, 9787500, 3683438, 34570417, 84720487 ####[facility] [address] [place] [address] Urea nitrogen/Creatinine [Mass ratio] 17 No Units Normal 10-20 [facility] Comment on above: Performed By: #### 1 8099704, 1661998, 4502881, 01964783, 4303351, 9525845, 20353538, 66186868 ####[facility] [address] [place] [address] Anion gap [Moles/Vol] 14 mmol/L Normal 6-16 [facility] Comment on above: Performed By: #### 1 6641710, 9714917, 9848092, 48057399, 7699412, 9738316, 71446688, 11762107 ####[facility] [address] [place] [address] Calcium [Mass/Vol] 9.4 mg/dL Normal 8.9-11.1 [facility] Comment on above: Performed By: #### 1 4077352, 5218593, 6854210, 87813868, 7853808, 1641509, 18426660, 58127164 ####[facility] [address] [place] [address] Chloride [Moles/Vol] 94 mmol/L Low 101-111 [facility] Comment on above: Performed By: #### 1 6922882, 3307904, 2954202, 50238557, 5370864, 0596337, 07018786, 11677952 ####[facility] [address] [place] [address] CO2 [Moles/Vol] 29 mmol/L Normal 21-31 [facility] Comment on above: Performed By: #### 1 5640278, 3964997, 1314817, 45203150, 8920738, 7911054, 89706291, 73374851 ####[facility] [address] [place] [address] Glucose [Mass/Vol] 103 mg/dL Normal 55-199 [facility] Comment on above: Result Comment: If t his glucose result represents a fasting glucose, interpretation should refer to the following reference range: 55-99 mg/dL Performed By: #### 1 1587731, 6288407, 6347631, 06857920, 0744640, 2302595, 78077670, 89600338 ####[facility] [address] [place] [address] Potassium [Moles/Vol] 4.0 mmol/L Normal 3.5-5.3 [facility] Comment on above: Performed By: #### 1 9451472, 2528375, 7295508, 86049138, 6458538, 5453641, 10843919, 76884567 ####[facility] [address] [place] [address] Sodium [Moles/Vol] 133 mmol/L Low 135-145 [facility] Comment on above: Performed By: #### 1 6050200, 3748453, 6724950, 55719607, 7409171, 9644956, 10222944, 46456757 ####[facility] [address] [place] [address] BNPon 08-24-2020 Natriuretic peptide B (Bld) [Mass/Vol] 17 pg/mL Normal 5-80 [facility] Comment on above: Performed By: #### 1 2762245, 7665672, 1772665, 38688138, 7466966, 4182674, 95140903, 57253777 ####[facility] [address] [place] [address] CBC w/ Auto Diffon Erythrocyte distribution width (RBC) [Ratio] 12.9 % Normal 10.9-14.2 [facility] Comment on above: Performed By: #### 1 2879872, 4780077, 5986172, 25642367, 6722360, 8534641, 99751224, 46206098 ####[address] [address] Hematocrit (Bld) [Volume fraction] 44.4 % Normal 37.7-49.0 [facility] Comment on above: Performed By: #### 1 0378796, 0118768, 3998717, 80437333, 9578257, 6187663, 87479083, 12132243 ####[facility] [address] [place] [address] Hemoglobin (Bld) [Mass/Vol] 15.3 g/dL Normal 13.5-17.5 [facility] Comment on above: Performed By: #### 1 0239414, 2434272, 0567400, 96806351, 3565604, 6981072, 17985581, 90577705 ####[facility] [address] [place] [address] MCH (RBC) [Entitic mass] 31.5 pg Normal 27.0-34.0 [facility] Comment on above: Performed By: #### 1 8973556, 4245157, 7730273, 98914913, 3498345, 8685420, 00164190, 08624377 ####[address] [address] MCHC (RBC) [Mass/Vol] 34.4 g/dL Normal 31.4-36.0 [facility] Comment on above: Performed By: #### 1 9719151, 3352303, 1924300, 68668228, 5437182, 1927961, 08501937, 35213520 ####[facility] [address] [place] [address] MCV (RBC) [Entitic vol] 91.6 fL Normal 80.0-100.0 [facility] Comment on above: Performed By: #### 1 0180976, 2831391, 4090975, 83929673, 6870679, 0825067, 81262446, 16862212 ####[place] [address] [place] [id number] Platelet mean volume (Bld) [Entitic vol] 8.4 fL Normal 6.4-10.8 [facility] Comment on above: Performed By: #### 1 5129526, 9404932, 6794024, 52213942, 8512767, 1520825, 62202275, 40223484 ####[place] [address] [place] 3[address]157 Platelets (Bld) [#/Vol] 289.0 E9/L Normal 150.0-500.0 [facility] Comment on above: Performed By: #### 1 7978967, 7576297, 8888197, 51232037, 8711542, 4872629, 87314507, 31214995 ####[facility] [address] [place] [address] RBC (Bld) [#/Vol] 4.8 E12/L Normal 4.3-5.9 [facility] Comment on above: Performed By: #### 1 2444505, 2444589, 5692912, 86137033, 3988317, 8248207, 10561925, 99222349 ####[place] [address]1857 WBC corrected for nucl RBC Auto (Bld) [#/Vol] 9.9 E9/L Normal 4.0-11.0 [facility] Comment on above: Performed By: #### 1 5570813, 1887878, 2362011, 98132155, 5424104, 3870498, 84260378, 34973305 ####[facility] [address] [place] [address] CTA Cheston 08-24-2020 CTA Chest Exam Date/Time: [...] Contrast amount in ml's: 78 Normal [facility] Consent for Treatmenton 08-07 Consent for Treatment [id number] 10 [id number] #1.00CD:127 Normal [facility] D-Dimeron 08-24-2020 Fibrin D-dimer FEU (PPP) [Mass/Vol] 845 ng/mL Abnormal 215-500 [facility] Comment on above: Result Comment: Resu [...] infections Liver cirrhosis Performed By: #### 1 1102570, 8554924, 7476892, 46783883, 8485351, 5399848, 14700538, 14188303 ####[facility] [address] [place] [address] Discharge Instructionson Discharge Instructions [id number] [id number] #1.00CD:127 Normal [facility] ED Clinical Summaryon 2020 ED Clinical Summary [place] [address] ED Clinical Summary Person Information Name: IZABELA MICHAELSJAVI Priest Kristine/[facility] Age: 55 Years : 1965 Sex: Male Language: [place] PCP: SIMONE JEAN BAPTISTE DC Marital Status: Single Phone: [phone] Visit Id: Visit Reason: Rib/trunk pain-swelling; SIDE [...] 08/24/2020 03:27:58 08/24/2020 03:27:58 08/24/2020 03:27:58 ADDRESS: [address] [place] [address] [id number] PHYS DOC NOTES: MEDICAL INFORMATION: Prescriptions Given: New Medications [facility]/pharmacy #[id number], [address], [place] [id number], [phone] azithromycin (Zithromax TRI-AMIRA 500 mg oral tablet) [...] (Nonspecific) Follow up: With: Address: When: SIMONE GONZALEZ [address] [place] [address] [place] (1) In 1 day 08/25/2020 Comments: Patient is advised to follow-up with his primary care physician in 1 to 2 days. He is also advised to come back to the emergency department if symptoms get worse. DIAGNOSIS: 1:Rib pain on left side Normal [facility] ED Note-Physicianon 08-25-19 ED Note-Physician Basic [...] 08/24/20 2:30:00 EDT Rapid COVID Antigen ([facility]) Orders: albuterol-ipratropiu m, 3 mL, Soln-Inh, Inhalation, Once, Stop date 08/24/20 0:16:00 EDT, STAT, Start date 08/24/20 0:16:00 EDT azithromycin, 500 mg = 1 tab(s), Oral, Daily, # 3 tab(s), Refills(s) 0, Pharmacy: [facility]/pharmacy #[id number], 163, cm, 08/24/20 0:04:00 EDT, Height/Length Dosing, 101, kg, 08/24/20 0:04:00 EDT, Weight Dosing famotidine, 20 mg = 1 tab(s), Tab, Oral, Once, Stop date 08/24/20 0:17:00 EDT, STAT, Start date 08/24/20 0:17:00 EDT lidocaine topical, 1 patch(es), Topical, Daily, 7 patch(es), Refill(s) 0, apply 12 hours on and 12 hours off daily, [facility]/pharmacy #[id number], 163, cm, 08/24/20 0:04:00 EDT, Height/Length Dosing, 101, kg, 08/24/20 0:04:00 EDT, Julian (more content not included)... Normal [facility] Comment on above: Result Comment: Elec [...] Document Reviewed: 11/28/2008 ExitCare? Patient Information ?2015 [employer]. This information is not intended to replace advice given to you by your health care provider. Make sure you discuss any questions you have with your health care provider. Normal [facility] ED Patient Summaryon 021 ED Patient Summary [address] [address] Patient Discharge Instructions Person Information Name: LILIANA MICHEALS Age: 55 Years Arrival Date: 08/23/2020 23:48:11 Discharge Diagnosis: 1:Rib pain on left side Primary Care Physician: SIMONE JEAN BAPTISTE DC Provider Information Primary Provider: Pia LANE, David Advanced [employer] Turbine Operator:None The exam and treatment you received in the Emergency Department were for an urgent problem and are not intended as complete care. It is important that you follow up with a doctor, nurse practitioner, or physician?s assistant sales director for ongoing care. If your symptoms become [...] Address: When: SIMONE JEAN BAPTISTE [address] [place] [id number] [place] ([facility] In 1 day 08/25/2020 Comments: Patient is [...] opioids can be used to help relieve rtqwdcuh-zh-tpxaha pain and are often prescribed following a [...] struggling (more content not included)... Normal [facility] PT & PTTon 08-24-2020 aPTT Coag (PPP) [Time] 30.2 second(s) Normal 25.1-36.5 [facility] Comment on above: Result Comment: Hepa rin therapeutic range (represented by Anti-Factor Xa activity of 0.2 - 0.4 U/mL) corresponds to PTT of 56.6 - 109.0 sec. Performed By: #### 1 [id number], 2240531, 4882765, 73451369, 3325559, 8776915, 91941482, 91037534 ####[facility] [address] [place] [address] INR Coag (PPP) [Relative time] 1.0 {INR} Invalid Interpretation Code [facility] Comment on above: Result Comment: INR results are specifically intended to assess patients stabilized on long-term Anticoagulation therapy suggested INR?s ?Less Intensive Anticoagulation? 2.0 ? 3.0 Conventional Range 3.0 ? 4.5 Performed By: #### 1 [id number], 4208893, 1131091, 63297637, 9787517, 6154934, 57668723, 57561751 ####[address] [place] [address] PT Coag (PPP) [Time] 11.6 second(s) Normal 10.2-12.9 [facility] Comment on above: Performed By: #### 1 6090563, 7621689, 9629604, 59338302, 7368888, 9308725, 82341312, 66730376 ####[address] [address] RAD - Preliminary Cat Scan R eporton 08-24-2020 RAD - Preliminary Cat Scan Report [id number] #[id number] Normal [facility] Rapid COVID Antigen ([facility])on 08-24-2020 Rapid COV Int NEG Ctl Pass Normal [facility] Comment on above: Performed By: #### 2 [id number] ####[address] [address] Rapid COV Int POS Ctl Pass Normal [facility] Comment on above: Performed By: #### 2 [id number] ####[address] [place] [address] SARS-CoV-2 (COVID-19) RNA KATT+probe Ql (Unsp spec) Not detected Normal Not Detected [facility] Comment on above: Result Comment: The Cinegif Veritor? System for Rapid Detection of SARS-CoV-2 is [...] or revoked sooner. Performed By: #### 2 [id number] ####[address] [place] [id number] Employed in Healthcare NO Normal [facility] Comment on above: Performed By: #### 2 [id number] ####[address] [place] [address] First Test Unknown Normal [facility] Comment on above: Performed By: #### 2 [id number] ####[facility] [address] [place] [address] Hospitalized? NO Normal [facility] Comment on above: Performed By: #### 2 [id number] ####[facility] [address] [place] [address] ICU NO Normal [facility] Comment on above: Performed By: #### 2 [id number] ####[facility] [address] [place] [address] ? NO Normal [facility] Comment on above: Performed By: #### 2 [id number] ####[address] [place] [address] Resides in a [facility] Care Setting NO Normal [facility] Comment on above: Performed By: #### 2 [id number] ####[facility] [address] [place] [address] Symptomatic as defined by CDC YES Normal [facility] Comment on above: Performed By: #### 2 [id number] ####[facility] [address] [place] [address] Troponin 0 Hr.on 08-24-2020 Troponin I.cardiac [Mass/Vol] 4.10 pg/mL Low 15.90-38.40 [facility] Comment on above: Result Comment: The 95% CI (Confidence Interval) PPV (Positive Predictive Value) for myocardial infarction in females is 38 pg/mL, in males 51 pg/mL. The results should be used in conjunction with clinical conditions of myocardial infarction. (Access High Sensitivity Troponin I Instructions For Use, Mena Hyannis, December 2017) Performed By: #### 1 [id number], 4293666, 6524780, 44338747, 6395413, 5771565, 41511643, 97337235 ####[facility] [address] [place] [address] Troponin 3 Hr.on 08-24-2020 Troponin I.cardiac [Mass/Vol] 4.40 pg/mL Low 15.90-38.40 [facility] Comment on above: Result Comment: The 95% CI (Confidence Interval) PPV (Positive Predictive Value) for myocardial infarction in females is 38 pg/mL, in males 51 pg/mL. The results should be used in conjunction with clinical conditions of myocardial infarction. (Access High Sensitivity Troponin I Instructions For Use, Mena Selam, December 2017) Performed By: #### 1 [id number] ####[facility] [address] [place] [address] XR Chest Single Viewon 08-24 XR Chest [...] MD, V. Transcribed by: VIVIAN Technologist: DAT Normal [facility] eGFRon 08-24-2020 GFR/1.73 sq M.predicted among blacks MDRD (S/P/Bld) [Vol rate/Area] mL/min/{1.73_m2} Normal >=59 [facility] Comment on above: Order Comment: Order added by Discern Expert. Result Comment: eGFR is race adjusted. AA=. Performed By: #### 1 6053284, 9472052, 6993688, 11540076, 6409874, 1810042, 01181173, 96732751 ####[facility] [address] [place] [address] GFR/1.73 sq M.predicted among non-blacks MDRD (S/P/Bld) [Vol rate/Area] mL/min/{1.73_m2} Normal >=59 [facility] Comment on above: Order Comment: Order added by Discern Expert. Result Comment: [employer] jeniffer kidney disease could be indicated at eGFR's of less than 60 mL/min/1.73m2. Kidney failure is indicated at less than 15 mL/min/1.73m2. Performed By: #### 1 0870314, 8947842, 3695936, 00558209, 6272202, 6569273, 95511448, 65634807 ####[facility] [address] [place] [address] HIP RIGHT 1 OR 2 VWS WITH PE LVISon 07-24-2020 HIP RIGHT 1 OR 2 VWS WITH PELVIS [facility] Department of Radiology [address] [place] [id number] Patient Name: LILIANA MICHAELS : 1965 [...] Electronically signed: Ana M Mariee. Transcribed by: [email or web address], User Resident: Electronically Signed by: ANA M MARIEE @ 07/24/2020 10:01 AM Normal [facility] Comment on above: Order Comment: Views (X-RAY, HIP): Radiologic Protocol HIP RIGHT 1 OR 2 VWS WITH PE LVISon 04-24-2020 HIP RIGHT 1 OR 2 VWS WITH PELVIS [facility] Department of Radiology [address] [place] [phone] Patient Name: LILIANA MICHAELS : 1965 [...] abnormality. Electronically signed: Ed España. Transcribed by: [email or web address], User Resident: Electronically Signed by: ED ESPAÑA @ 04/25/2020 08:22 AM Normal [facility] Comment on above: Order Comment: Views (X-RAY, HIP): Radiologic Protocol Operative Reporton 0 Operative Report MR#: [id number] [facility] Pt. Name: Liliana Michaels Room #: 6AB 623347 Discharge 03/15/2020 Date: Birthdate: 1965 OPERATIVE REPORT [...] a (more content not included)... Normal [facility] BASIC METABOLIC PANELon 11-0 Calcium [Mass/Vol] 8.8 mg/dL Normal 8.6-10.3 [facility] Comment on above: Order Comment: Views (X-RAY, HIP): Radiologic Protocol Performed By: #### 0 0071 ####[address] [place] [address], [facility] Chloride [Moles/Vol] 98 mmol/L Normal 98-107 [facility] Comment on above: Order Comment: Views (X-RAY, HIP): Radiologic Protocol Performed By: #### 0 0071 ####[address] [place] [address], [facility] CO2 [Moles/Vol] 30 mmol/L Normal 21-31 [facility] Comment on above: Order Comment: Views (X-RAY, HIP): Radiologic Protocol Performed By: #### 0 0071 ####[facility] [place] [address], [facility] Creatinine [Mass/Vol] 0.96 mg/dL Normal 0.70-1.30 [facility] Comment on above: Order Comment: Views (X-RAY, HIP): Radiologic Protocol Performed By: #### 0 0071 ####[address] [place] [address], [facility] GFR/1.73 sq M.predicted among blacks MDRD (S/P/Bld) [Vol rate/Area] mL/min/{1.73_m2} Normal >60 [facility] Comment on above: Order Comment: Views (X-RAY, HIP): Radiologic Protocol Performed By: #### 0 0071 ####[facility] [facility] [address], [facility] GFR/1.73 sq M.predicted among non-blacks MDRD (S/P/Bld) [Vol rate/Area] mL/min/{1.73_m2} Normal >60 [facility] Comment on above: Order Comment: Views (X-RAY, HIP): Radiologic Protocol Performed By: #### 0 0071 ####[facility] [facility] [place] [address], [facility] Glucose [Mass/Vol] 151 mg/dL High 70-100 [facility] Comment on above: Order Comment: Views (X-RAY, HIP): Radiologic Protocol Performed By: #### 0 0071 ####[facility] [facility] [place] [address], [facility] Potassium [Moles/Vol] 4.4 mmol/L Normal 3.5-5.1 [facility] Comment on above: Order Comment: Views (X-RAY, HIP): Radiologic Protocol Performed By: #### 0 0071 ####[facility] [facility] [place] [address], [facility] Sodium [Moles/Vol] 133 mmol/L Low 136-145 [facility] Comment on above: Order Comment: Views (X-RAY, HIP): Radiologic Protocol Performed By: #### 0 0071 ####[facility] [facility] [place] [address], [facility] Urea nitrogen [Mass/Vol] 20 mg/dL Normal 7-25 [facility] Comment on above: Order Comment: Views (X-RAY, HIP): Radiologic Protocol Performed By: #### 0 0071 ####[facility] CBC COMPLETE BLOOD COUNTon 05-15-2019 Erythrocyte distribution width (RBC) [Ratio] 12.2 % Normal 11.5-15.0 [facility] Comment on above: Order Comment: No: D o not add to previous draw Performed By: #### 5 0608 #### [facility] [address] [place] [address], [facility] Hematocrit (Bld) [Volume fraction] 42.2 % Normal 39.0-50.0 [facility] Comment on above: Order Comment: No: D o not add to previous draw Performed By: #### 5 0608 #### [facility] [address] [place] [address], [facility] Hemoglobin (Bld) [Mass/Vol] 13.9 g/dL Normal 13.0-17.0 [facility] Comment on above: Order Comment: No: D o not add to previous draw Performed By: #### 5 0608 #### [facility] [address] [place] [address], [facility] MCH (RBC) [Entitic mass] 31.4 pg Normal 27.0-33.0 [facility] Comment on above: Order Comment: No: D o not add to previous draw Performed By: #### 5 0608 #### [facility] [address] [place] [address], [facility] MCHC (RBC) [Mass/Vol] 32.9 g/dL Normal 32.0-35.0 [facility] Comment on above: Order Comment: No: D o not add to previous draw Performed By: #### 5 0608 #### [facility] [address] [place] [address], [facility] MCV (RBC) [Entitic vol] 95.5 fL Normal 82.0-98.0 T brittany [facility] Comment on above: Order Comment: No: D o not add to previous draw Performed By: #### 5 0608 #### [facility] [address] [facility]. [address] Nucleated RBC/100 WBC (Bld) [Ratio] 0 % Normal 0-0 [facility] Comment on above: Order Comment: No: D o not add to previous draw Performed By: #### 5 0608 #### [facility] [address] [facility] [place] [address], [facility] PLAT CNT 254 10*3/uL Normal 150-400 [facility] Comment on above: Order Comment: No: D o not add to previous draw Performed By: #### 5 0608 #### [facility] [address] [facility] [place] [address], [facility] RBC (Bld) [#/Vol] 4.42 10*6/uL Normal 4.20-5.70 [facility] Comment on above: Order Comment: No: D o not add to previous draw Performed By: #### 5 0608 #### [facility] [address] [facility] [place] [address], [facility] WBC (Bld) [#/Vol] 14.44 10*3/uL High 4.00-10.60 [facility] Comment on above: Order Comment: No: D o not add to previous draw Performed By: #### 5 0608 #### [facility] [address] [facility] [place] [address], [facility] POC GLUCOSE LABon 03-15-2020 Glucose [Mass/Vol] 193 mg/dL High 70-100 [facility] Comment on above: Performed By: #### 8 5499 #### [facility] [address] [facility] [place] [address], [facility] CBC W/DIFFon 03-14-2020 ABS IMM GRANS 0.2 10*3/uL Normal 0.0-0.2 [facility] Comment on above: Performed By: #### 5 0103 ####[facility] [facility] [place] [address], [facility] ABS NEUTROPHILS 8.0 10*3/uL High 1.6-7.6 [facility] Comment on above: Performed By: #### 5 0103 ####[facility] [place] [address], [facility] Basophils (Bld) [#/Vol] 0.1 10*3/uL Normal 0.0-0.2 [facility] Comment on above: Performed By: #### 5 0103 ####[facility] [place] [address], [facility] Basophils/100 WBC (Bld) 1.1 % High 0.0-1.0 T [facility] Comment on above: Performed By: #### 5 0103 ####[facility] [facility] [place] [address], [facility] Eosinophils (Bld) [#/Vol] 0.3 10*3/uL Normal 0.0-0.5 [facility] Comment on above: Performed By: #### 5 0103 ####[facility] [facility] [place] [address], [facility] Eosinophils/100 WBC (Bld) 2.7 % Normal 0.0-6.0 [facility] Comment on above: Performed By: #### 5 0103 ####[facility] [facility] [place] [address], [facility] Erythrocyte distribution width (RBC) [Ratio] 12.3 % Normal 11.5-15.0 [facility] Comment on above: Performed By: #### 5 0103 ####[facility] [facility] [place] [address], [facility] Hematocrit (Bld) [Volume fraction] 50.5 % High 39.0-50.0 [facility] Comment on above: Performed By: #### 5 0103 ####[facility] [facility] [place] [address], [facility] Hemoglobin (Bld) [Mass/Vol] 17.3 g/dL High 13.0-17.0 [facility] Comment on above: Performed By: #### 5 0103 ####[facility] IMMATURE GRANS 1.4 % High 0.0-1.0 [facility] Comment on above: Performed By: #### 5 3 ####[facility] Lymphocytes (Bld) [#/Vol] 1.8 10*3/uL Normal 1.2-4.0 [facility] Comment on above: Performed By: #### 5 3 ####[id number] Lymphocytes/100 WBC (Bld) 15.6 % Low 20.0-45.0 [facility] Comment on above: Performed By: #### 5 3 ####[facility] MCH (RBC) [Entitic mass] 31.7 pg Normal 27.0-33.0 [facility] Comment on above: Performed By: #### 5 3 ####[facility] MCHC (RBC) [Mass/Vol] 34.3 g/dL Normal 32.0-35.0 [facility] Comment on above: Performed By: #### 5 3 ####[facility] [place] [address], [facility] MCV (RBC) [Entitic vol] 92.7 fL Normal 82.0-98.0 T he [facility] Comment on above: Performed By: #### 5 3 ####[facility] [place] [address], [facility] Monocytes (Bld) [#/Vol] 0.9 10*3/uL Normal 0.1-1.0 [facility] Comment on above: Performed By: #### 5 3 ####[facility] [place] [address], [facility] MONOS 8.2 % Normal 5.0-12.0 [facility] Comment on above: Performed By: #### 5 3 ####[facility] [facility] [place] [address], [facility] Neutrophils/100 WBC (Bld) 71.0 % Normal 40.0-72.0 [facility] Comment on above: Performed By: #### 5 102 ####[facility] [facility] [place] [address], [facility] Nucleated RBC/100 WBC (Bld) [Ratio] 0 % Normal 0-0 [facility] Comment on above: Performed By: #### 5 102 ####[facility] [facility] [address], [facility] PLAT CNT 301 10*3/uL Normal 150-400 [facility] Comment on above: Performed By: #### 5 3 ####[facility] [place] [address], [facility] RBC (Bld) [#/Vol] 5.45 10*6/uL Normal 4.20-5.70 [facility] Comment on above: Performed By: #### 5 3 ####[facility] [place] [address], [facility] WBC (Bld) [#/Vol] 11.22 10*3/uL High 4.00-10.60 [facility] Comment on above: Performed By: #### 5 102 ####[facility] [facility] [place] [address], [facility] HIP RIGHT 1 OR 2 VWS WITH PE LVISon 03-14-2020 HIP RIGHT 1 OR 2 VWS WITH PELVIS [facility] Department of Radiology [address] [place] [phone] Patient Name: LILIANA MICHAELS : 1965 [...] purposes Electronically signed: Aria Steinberg. Transcribed by: [email or web address], User Resident: Electronically Signed by: ARIA STEINBERG @ 03/14/2020 03:44 PM Normal [facility] Comment on above: Order Comment: RT TH A POC GLUCOSE LABon 03-14-2020 Glucose [Mass/Vol] 222 mg/dL High 70-100 [facility] Comment on above: Performed By: #### 8 5499 #### [facility] [address] [place] [address], [facility] Glucose [Mass/Vol] 217 mg/dL High 70-100 [facility] Comment on above: Performed By: #### 8 5499 ####[facility] [place] [address], [facility] Glucose [Mass/Vol] 141 mg/dL High 70-100 [facility] Comment on above: Performed By: #### 8 5499 #### [facility] [address] [place] [address], [facility] PORTABLE HIP RIGHT 1 OR 2 VW S WITH PELVISon 03-14-2020 PORTABLE HIP RIGHT 1 OR 2 VWS WITH PELVIS [facility] Department of Radiology [address] [place] [address] Patient Name: LILIANA MICHAELS : [...] air Electronically signed: Aria Steinberg. Transcribed by: [email or web address], User Resident: Electronically Signed by: ARIA STEINBERG @ 03/14/2020 03:46 PM Normal [facility] Comment on above: Order Comment: Hardw are Evaluation, AP/Lateral TYPE AND SCREENon 03-14-2020 ABO INTERPRETATION O Normal [facility] Comment on above: Performed By: #### 6 2586 ####[facility] [facility] [address], [facility] RH INTERPRETATION Positive Normal [facility] Comment on above: Performed By: #### 6 2586 ####[facility] [facility] [address], [facility] Vital Signs Date Time Vital Sign Value Performing Clinician Facility 08-10-2023 13:31-0400 Body height 162.6 cm Amador Son MD Work Phone: [facility] [place] 08-10-2023 13:31-0400 Body mass index (BMI) [Ratio] 34.67 kg/m2 Amador Son MD Work Phone: [facility] [place] 08-10-2023 13:31-040 Body weight 91.63 kg Amador Son MD Work Phone: [facility] [place] 08-10-2023 13:31-0400 Diastolic blood pressure 70 mm[Hg] Amador Son MD Work Phone: [facility] [place] 08-10-2023 13:31-0400 Heart rate 69 /min Amador Son MD Work Phone: [facility] [place] 08-10-2023 13:31-0400 Systolic blood pressure 116 mm[Hg] Amador Son MD Work Phone: [facility] [place] 08-05-2023 17:30-0400 Diastolic blood pressure 67 mm[Hg] Amador Son MD Work Phone: [facility] [place] 08-05-2023 17:30-0400 Heart rate 60 /min Amador Son MD Work Phone: [facility] [place] 08-05-2023 17:30-0400 Respiratory rate 16 /min Amador Son MD Work Phone: [facility] [place] 08-05-2023 17:30-0400 SaO2% (BldA) [Mass fraction] 96 % Amador Son MD Work Phone: [facility] [place] 08-05-2023 17:30-0400 Systolic blood pressure 112 mm[Hg] Amador Son MD Work Phone: [facility] [place] 08-05-2023 12:13-0400 Body height 162.6 cm Amador Son MD Work Phone: [facility] [place] 08-05-2023 12:13-0400 Body mass index (BMI) [Ratio] 34.17 kg/m2 Amador Son MD Work Phone: [facility] [place] 08-05-2023 12:13-0400 Body temperature 97.5 [degF] Amador Son MD Work Phone: [facility] [place] 08-05-2023 12:13-0400 Body weight 90.3 kg Amador Son MD Work Phone: [facility] [place] 07-22-2023 14:38-0400 Body height 162.6 cm Amador Son MD Work Phone: [facility] [place] 07-22-2023 14:38-0400 Body mass index (BMI) [Ratio] 34.33 kg/m2 Amador Son MD Work Phone: [facility] [place] 07-22-2023 14:38-0400 Body weight 90.72 kg Amador Son MD Work Phone: [facility] [place] 07-22-2023 14:38-0400 Diastolic blood pressure 90 mm[Hg] Amador Son MD Work Phone: [facility] [place] 07-22-2023 14:38-0400 Heart rate 41 /min Amador Son MD Work Phone: [facility] [place] 07-22-2023 14:38-0400 Systolic blood pressure 138 mm[Hg] Amador Son MD Work Phone: [facility] [place] 07-14-2022 10:57-0500 Body height 162.56 cm Ishmael Rae Naderer Work Phone: [facility] 600 DO Work Phone: 07-14-2022 10:57-0500 Body mass index (BMI) [Ratio] 32.96 kg/m2 Ishmael A Naderer Work Phone: [facility] 600 DO Work Phone: 07-14-2022 10:57-0500 Body surface area Derived from formula 1.92 m2 Ishmael A Naderer Work Phone: [facility] 600 DO Work Phone: 07-14-2022 10:57-0500 Body weight 87.09 kg Ishmael A Naderer Work Phone: [facility] 600 DO Work Phone: 07-14-2022 10:57-0500 Diastolic blood pressure 64 mm[Hg] Ishmael A Naderer Work Phone: [facility] 600 DO Work Phone: 07-14-2022 10:57-0500 Heart rate 34 /min Ishmael A Naderer Work Phone: [facility] [employer] 600 DO Work Phone: 07-14-2022 10:57-0500 Systolic blood pressure 118 mm[Hg] Ishmael A Naderer Work Phone: [facility] [employer] 600 DO Work Phone: 01-28-2022 09:37-0400 Body height 162.56 cm Ishmael A Naderer Work Phone: [facility] [employer] 600 DO Work Phone: 01-28-2022 09:37-0400 Body mass index (BMI) [Ratio] 30.9 kg/m2 Ishmael A Naderer Work Phone: [facility] [employer] 600 DO Work Phone: 01-28-2022 09:37-0400 Body surface area Derived from formula 1.87 m2 Ishmael A Naderer Work Phone: [facility] [employer] 600 DO Work Phone: 01-28-2022 09:37-0400 Body weight 81.65 kg Ishmael A Naderer Work Phone: [facility] [employer] 600 DO Work Phone: 01-28-2022 09:37-0400 Diastolic blood pressure 50 mm[Hg] Ishmael A Naderer Work Phone: [facility] [employer] 600 DO Work Phone: 01-28-2022 09:37-0400 Heart rate 41 /min Ishmael A Naderer Work Phone: [facility] [employer] 600 DO Work Phone: 01-28-2022 09:37-0400 Systolic blood pressure 112 mm[Hg] Ishmael A Naderer Work Phone: [facility] [employer] 600 DO Work Phone: Encounters Encounter Date Encounter Type Care Provider Facility Start: 02-14-2024 End: 02-14-2024 ambulatory [facility] Start: 02-14-2024 End: 02-14-2024 Subsequent hospital visit by physician Varsha Restrepo [facility] Comment on above: Cardiac pacemaker in situ; Sinoatrial node dysfunction (Multi) Start: 02-06-2024 End: 02-06-2024 ambulatory ISHMAEL KARENERER Not Available Start: 01-25-2024 End: 01-25-2024 ambulatory [facility] Start: 01-13-2024 End: 01-13-2024 ambulatory ISHMAEL NADERER Not Available Start: 11-09-2023 End: 11-09-2023 [facility] Start: 10-10-2023 End: 10-10-2023 ambulatory ISHMAEL JONESERER Not Available Start: 09-26-2023 End: 09-26-2023 ambulatory [facility] Start: 09-26-2023 End: 09-26-2023 Subsequent hospital visit by physician Varsha Restrepo [facility] Comment on above: Cardiac pacemaker in situ; Sinoatrial node dysfunction (Multi) Start: 08-12-2023 End: 08-12-2023 [facility] Start: 08-10-2023 End: 08-10-2023 Subsequent hospital visit by physician Varsha Ultrasound 3 [facility] Comment on above: Localized swelling o n left hand; S/P placement of cardiac pacemaker Start: 08-10-2023 End: 08-10-2023 ambulatory [facility] Start: 08-10-2023 End: 08-10-2023 Office outpatient visit 25 minutes Amador Son MD Work Phone: [facility] Comment on above: Chronotropic incompe tence (Primary Dx); Abnormal stress test; Sinus bradycardia; Sick sinus syndrome (CMS/HCC); Essential hypertension, benign; BMI 34.0-34.9,adult; Current smoker Start: 08-05-2023 End: 08-05-2023 Subsequent hospital visit by physician Amador Son MD Work Phone: [facility] Comment on above: Sinus bradycardia (P rimary Dx); Chronotropic incompetence; Sick sinus syndrome (CMS/HCC); Other fatigue; Abnormal stress test; Dyspnea; Pacemaker Start: 07-22-2023 End: 07-22-2023 ambulatory [facility] Start: 07-22-2023 End: 07-22-2023 Encounter for preprocedural cardiovascular examination [facility] Start: 07-22-2023 End: 07-22-2023 Office outpatient new 60 minutes Amador Son MD Work Phone: [facility] Comment on above: Chronotropic incompe tence (Primary Dx); Sinus bradycardia; Establishing care with new doctor, encounter for; BMI 34.0-34.9,adult; Sick sinus syndrome (CMS/HCC); Simple chronic bronchitis (CMS/HCC); Current smoker; Other fatigue; Preoperative cardiovascular examination Start: 07-22-2023 End: 07-22-2023 Patient encounter status Amador Son MD Work Phone: [facility] [place] Work Phone: Start: 07-13-2023 End: 07-13-2023 ambulatory [facility] Amb[facility] Start: 07-13-2023 End: 07-13-2023 ambulatory [facility] Start: 04-13-2023 End: 04-13-2023 ambulatory ISHMAEL SIMON Not Available Start: 10-14-2022 ambulatory NARENDRANATH LAKSHMIPATHY . Facility:[facility]1 Start: 09-14-2022 End: 09-14-2022 ambulatory NARENDRANATH LAKSHMIPATHY . Facility:[facility] Start: 08-31-2022 End: 09-01-2022 ambulatory NARENDRANATH LAKSHMIPATHY . Facility:[facility]1 Start: 08-04-2022 End: 08-05-2022 ambulatory NARENDRANATH LAKSHMIPATHY . Facility:[facility]1 Start: 07-23-2022 End: 08-07-2022 ambulatory NARENDRANATH LAKSHMIPATHY . Facility:[facility]1 Start: 07-20-2022 End: 07-21-2022 ambulatory WILDER NAVA . Facility:[facility]1 Start: 07-15-2022 End: 07-16-2022 ambulatory AMINA CASSIDY . Facility:[facility]1 Start: 07-14-2022 Office outpatient vi sit 15 minutes Ishmael Simon Work Phone: [facility] 600 DO Work Phone: Start: 07-14-2022 [...] Update Ishmael Simon Work Phone: [facility] 250 DO Work Phone: Start: 02-15-[address] Valentino Ty Facility:[id number] Start: 01-28-[address] Ishmael Simon Facility: Start: 01-28-2022 Office consultation new/estab patient 60 min Ishmael Simon Work Phone: [facility] 600 DO Work Phone: Start: 01-14-2022 End: 01-15-2022 ambulatory TERESO COLMENARES . Facility:[facility]1 Start: 01-01-2022 End: 01-02-[address] ISHMAEL SIMON Facility:[facility]1 Start: 12-15-2021 End: 12-15-[address] RICKY IBARRA . Facility:[facility]1 Start: 12-14-2021 Encounter for preprocedural laboratory examination DR RICKY IBARRA . [facility] Start: 12-12-2021 End: 12-13-[address] ISHMAEL [...] Start: 10-03-2020 End: 10-04-2020 ambulatory SIMONE RUIZ Facility:[facility] Start: 03-26-2020 End: 04-10-2020 ambulatory JEY ELISE Facility:[facility] Start: 03-14-2020 End: 03-15-2020 ambulatory JEY ELISE Facility:[facility] Procedures Date Procedure Procedure Detail Performing Clinician Start: 02-14-2024 Rem interrog pm/ldls pm/ids <90 d tech review Amador Son MD Work Phone: Start: 09-26-2023 CARDIAC DEVICE CHECK - REMOTE NAIMA WRIGHT Start: 09-26-2023 CARDIAC DEVICE CHECK - REMOTE Amador Son MD Work Phone: Start: 08-10-2023 VASC US UPPER EXTREM ITY VENOUS DUPLEX LEFT NAIMA WRIGHT Start: 08-10-2023 Dup-scan xtr veins unilateral/limited study Naima Wright HOUSEKEEPING ATTENDANT-THREAD REELER Work Phone: Start: 08-05-2023 Radiologic exam ches t single view Ana M Kumari HOUSEKEEPING ATTENDANT-THREAD REELER Work Phone: Start: 08-05-2023 Ecg routine ecg w/le ast 12 lds trcg only w/o i&r Ana M Dodge Quoc HOUSEKEEPING ATTENDANT-THREAD REELER Work Phone: Start: 08-05-2023 Electrophysiology study Amador Son MD Work Phone: Start: 08-05-2023 Echo tthrc r-t 2d w/ wom-mode compl spec&colr d Ana M Dodge Alinanishjob HOUSEKEEPING ATTENDANT-THREAD REELER Work Phone: Start: 08-05-2023 Ecg routine ecg w/le ast 12 lds trcg only w/o i&r Ana M Dodge Stanley HOUSEKEEPING ATTENDANT-THREAD REELER Work Phone: Start: 08-05-2023 Basic metabolic pane l calcium total Ana M Dodge Stanley HOUSEKEEPING ATTENDANTZingdom CommunicationsTHREAD REELER Work Phone: Start: 07-22-2023 CASE REQUEST EP LAB MINDI RHAF TRABOULSSI Start: 07-22-2023 AMB REFERRAL TO CARD IAC ELECTROPHYSIOLOGY MOURHAF TRABOULSSI Start: 07-22-2023 ECG 12-LEAD MOURHAF TR ABOULSSI Start: 07-22-2023 Ecg routine ecg w/le ast 12 lds w/i&r Amador Son MD Work Phone: Start: 07-13-2023 HOLTER OR EVENT CARD IAC MONITOR MOURHAF TRABOULSSI Start: 07-13-2023 ECG 12-LEAD MOURHAF TR ABOULSSI Start: 05-07-[address] ISHMAEL CROUCH Comment on above: Performed By: #### V ITTRISH, PSASC #### [facility] [address] [place] [address] Dr. Britt Mendoza Start: 03-15-2020 ANESTH HIP ARTHROPLASTY SIMONE RUIZ Start: 03-15-2020 TOTAL HIP ARTHROPLASTY JEY ELISE Start: 03-14-2020 Antibody screen SIMONE BOLIVAR Comment on above: Performed By: #### 6 [id number] ####[place] [id number] [place] [address], [facility] Colonoscopy Ishmael Rae Naderer Work Phone: Excision of cyst Ishmael Rae Nade rer Work Phone: Hernia repair Ishmael Rae Naderer Work Phone: Operation on urinary system Ishmael Rae Naderer Work Phone: Surgical repair of u pper extremity Ishmael Rae Naderer Work Phone: Total replacement of hip Mar praveena Rae Naderer Work Phone: Plan of Treatment Date Care Activity Detail Author Start: 08-04-2024 Creatinine measurement Creatinine Level [facility] Start: 08-04-2024 Echocardiography Echocardiogram [facility] Start: 08-04-2024 Potassium measurement Potassium Level [facility] [place] Start: 06-13-2024 End: 06-13-2024 Patient encounter procedure 06/13/2024 9:10 AM EST Office Visit [place] [address] [place] [address] Valentino Ty MD [address] [facility] [place] [address] [facility] Start: 05-23-2024 End: 05-23-2024 Patient encounter procedure [facility] Start: 01-08-2024 COVID-19 Vaccine ( season) COVID-19 Vaccine ( season) [facility] Start: 01-08-2024 Influenza vaccination [facility] Start: 11-09-2023 End: 08-04-2024 Cardiac Device Check - In Clinic Cardiac Device Check - In Clinic Implantable Cardiac Device Routine Pacemaker Expected: 11/09/2023 (Approximate), Expires: 08/04/2024 [facility] Service Area Work Phone: Comment on above: Expected: 11/09/2023 (Approximate), Expi res: 08/04/2024 Start: 11-09-2023 End: 08-04-2024 XR Chest 2 Views XR chest 2 views Imaging Routine Pacemaker Expected: 11/09/2023, Expires: 08/04/2024 [facility] Work Phone: Comment on above: Expected: 11/09/2023, Expires: Start: 11-09-2023 End: 11-09-2023 Patient encounter procedure [facility] Start: 11-03-2023 End: 11-03-2023 Patient encounter procedure 11/03/2023 8:50 AM EDT Office Visit [place] [address] [place] [address] Valentino Ty MD [address] [facility] [address] [place] [address] [facility] Start: 08-12-2023 End: 08-12-2023 Clinical Support 08/12/2023 8:30 AM EDT Clinical Support [facility] [address] [place] [address] [facility] Start: 08-10-2023 Subsequent hospital visit by physician 08/10/2023 2:09 PM EDT Hospital Encounter [facility] [address] [place] [id number] Localized swelling on left hand; S/P placement of cardiac pacemaker [facility] Comment on above: Localized swelling on left hand; S/P placement of cardiac pacemaker Start: 07-22-2023 End: 07-21-2025 US Heart Transthoracic Transthoracic Echo Complete Echocardiography Routine Sinus bradycardia Chronotropic incompetence Sick sinus syndrome (CMS/HCC) Other fatigue Preoperative cardiovascular examination Expected: 07/22/2023 (Approximate), Expires: 07/21/2025 [facility] Work Phone: Comment on above: Expected: 07/22/2023 (Approximate), Expi res: 07/21/2025 Start: 07-13-2023 FUV, Provider: Valentino Ty, Status: Pen, Time: 8:30 AM FUV, Provider: Valentino Ty, Status: Pen, Time: 8:30 AM [facility] [employer] 600 DO Work Phone: Start: 01-07-2023 COVID-19 Vaccine ( season) COVID-19 Vaccine ( season) [facility] Start: 01-07-2023 Influenza vaccination Influenza Vaccine (#1) [facility] Start: 07-14-2022 FUV, Provider: Valentino Ty, Status: Pen, Time: 10:40 AM FUV, Provider: Valentino Ty, Status: Pen, Time: 10:40 AM [facility] [employer] 600 DO Work Phone: Start: 02-15-2022 STRESS JUICE, Provider: CARLITO HHVI NUCLEAR 01,[id number], Status: Pen, Time: 2:00 PM STRESS JUICE, Provider: CARLITO MCKEONI NUCLEAR 01,[id number], Status: Pen, Time: 2:00 PM [facility] 600 DO Work Phone: Start: 02-21-2014 Zoster Vaccines (1 of 2) Zoster Vaccines (1 of 2) [facility] Start: 02-21-1986 DTaP/Tdap/Td Vaccines (1 - Tdap) DTaP/Tdap/Td Vaccines (1 - Tdap) [facility] Start: 02-21-1983 Hepatitis B Vaccines (1 of 3 - 19+ 3-dose series) Hepatitis B Vaccines (1 of 3 - 19+ 3-dose series) [facility] [place] Start: 02-21-1983 Urine screening for protein Diabetes: Urine Protein Screening [facility] Start: 02-21-1982 Diabetes mellitus screening Diabetes Screening [facility] Start: 02-21-1982 Hepatitis C screening Hepatitis C Screening [facility] Start: 02-21-1974 Diabetic foot examination Diabetes: Foot Exam [facility] Start: 02-21-1974 Glaucoma screening Diabetes: Retinopathy Screening [facility] Start: 02-21-1970 Pneumococcal Vaccine: Pediatrics (0 to 5 Years) and At-Risk Patients (6 to 64 Years) (1 - PCV) Pneumococcal Vaccine: Pediatrics (0 to 5 Years) and At-Risk Patients (6 to 64 Years) (1 - PCV) [facility] [place] Start: 02-21-1970 Pneumococcal Vaccine: Pediatrics (0 to 5 Years) and At-Risk Patients (6 to 64 Years) (1 of 2 - PCV) Pneumococcal Vaccine: Pediatrics (0 to 5 Years) and At-Risk Patients (6 to 64 Years) (1 of 2 - PCV) [facility] Start: 02-21-1965 MMR Vaccines (1 of 1 - Standard series) MMR Vaccines (1 of 1 - Standard series) [facility] [place] Start: 1964 COVID-19 Vaccine (#1) COVID-19 Vaccine (#1) [facility] Start: 1964 Creatinine measurement Creatinine Level [facility] Start: 1964 Echocardiography Echocardiogram [facility] Start: 1964 Hemoglobin A1c measurement Diabetes: Hemoglobin A1C [facility] Start: 1964 Hepatitis B Vaccines (1 of 3 - 3-dose series) Hepatitis B Vaccines (1 of 3 - 3-dose series) [facility] Start: 1964 HIV screening HIV Screening [facility] Start: 1964 Lipid panel Lipid Panel [facility] Start: 1964 Medicare Annual Wellness Visit Medicare Annual Wellness Visit (AWV) [facility] Start: 1964 Potassium measurement Potassium Level [facility] Start: 1964 Screening for malignant neoplasm of colon [facility] End: 07-21-2024 Basic metabolic 2000 panel - Serum or Plasma Basic Metabolic Panel Lab Routine Sinus bradycardia Chronotropic incompetence Sick sinus syndrome (CMS/HCC) Other fatigue 1 Occurrences starting 07/22/2023 until 07/21/2024 [facility] Work Phone: Comment on above: 1 Occurrences starting 07/22/2023 until 07/21/2024 End: 07-21-2024 CBC panel - Blood by Automated count CBC Lab Routine Sinus bradycardia Chronotropic incompetence Sick sinus syndrome (CMS/HCC) Other fatigue 1 Occurrences starting 07/22/2023 until 07/21/2024 [facility] Work Phone: Comment on above: 1 Occurrences starting 07/22/2023 until 07/21/2024 ECG 12 lead STAT ECG 12 lead STA T ECG STAT 08/05/2023 12:30 PM EDT [facility] Service Area Work Phone: ECG 12 lead STAT ECG 12 lead STA T ECG STAT 08/05/2023 5:12 PM EDT [facility] Work Phone: PPM IMPLANT DC PPM IMPLANT DC S inus bradycardia Chronotropic incompetence Sick sinus syndrome (CMS/HCC) Other fatigue [facility] Work Phone: End: 07-21-2024 Prothrombin time (PT) Protime-INR Lab Routine Sinus bradycardia Chronotropic incompetence Sick sinus syndrome (CMS/HCC) Other fatigue 1 Occurrences starting 07/22/2023 until 07/21/2024 [facility] Service Area Work Phone: Comment on above: 1 Occurrences starting 07/22/2023 until 07/21/2024 Payers Date Payer Category Payer Medicare [employer] MEDICARE [employer] G[employer] CHOICE [id number] 2023-Present [address] [address] [place] [address] [id number] 2023 Medicare [id number] 1964 Unknown [id number] 2.840.1.303560.3.579.2.647 1964 Unknown [id number] 2.840.1.970893.3.579.2.647 1964 Unknown [id number] 2.840.1.326584.3.579.2.647 1964 Unknown [id number] 2.840.1.679406.3.579.2.1068 1964 Unknown [id number] 2.840.1.185949.3.579.2.356 1964 Unknown [id number] .840.1.658695.3.579.2.356 1964 Unknown [id number] 2.16.840.1.675144.3.579.2.593 1964 Unknown [id number] 2.16.840.1.795369.3.579.2.593 1964 Unknown [id number] 2.16.840.1.286308.3.579.2.593 1964 Unknown [id number] 2.16.840.1.387457.3.579.2.593 1964 Unknown [id number] 2.16.840.1.070480.3.579.2.593 1964 Unknown [id number] 2.16.840.1.252556.3.579.2.593 1964 Unknown [id number] 2.16.840.1.403551.3.579.2.593 1964 Unknown [id number] 2.16.840.1.982463.3.579.2.593 1964 Unknown [id number] 2.16.840.1.466682.3.579.2.593 1964 Unknown [id number] 2.16.840.1.640160.3.579.2.593 1964 Unknown [id number] 2.16.840.1.757132.3.579.2.593 1964 Unknown [id number] 2.16.840.1.716947.3.579.2.593 1964 Unknown [id number] 2.16.840.1.184630.3.579.2.593 1964 Unknown [id number] 2.16.840.1.019850.3.579.2.593 1964 Unknown [id number] 2.16.840.1.169172.3.579.2.593 1964 Unknown [id number] 2.16.840.1.090704.3.579.2.593 1964 Unknown [id number] 2.16.840.1.159141.3.579.2.593 1964 Unknown [id number] 2.16.840.1.493264.3.579.2.593 1964 Unknown [id number] 2.16.840.1.299590.3.579.2.593 1964 Unknown [id number] 2.16.840.1.738772.3.579.2.593 1964 Unknown [id number] 2.16.840.1.218361.3.579.2.593 1964 Unknown [id number] 2.16.840.1.825771.3.579.2.593 1964 Unknown [id number] 2.840.1.418438.3.579.2.593 1964 Unknown [id number] 2.16.840.1.515082.3.579.2.593 1964 Unknown [id number] 2.16.840.1.031263.3.579.2.1244 1964 Unknown [id number] 2.840.1.969797.3.579.2.1244 1964 Unknown [id number] 2.16.840.1.704967.3.579.2.1244 1964 Unknown [id number] 2.16.840.1.152111.3.579.2.1244 1964 Unknown [id number] 2.16.840.1.864878.3.579.2.1244 1964 Unknown [id number] 2.16.840.1.202641.3.579.2.1244 1964 Unknown [id number] 2.16.840.1.305093.3.579.2.1259 1964 Unknown [id number] 2.16.840.1.768638.3.579.2.1259 1964 Unknown [id number] 2.16.840.1.016682.3.579.2.1259 1964 Unknown [id number] 2.16.840.1.510416.3.579.2.1259 1964 Unknown [id number] 2.16.840.1.277181.3.579.2.1246 1964 Unknown [id number] 2.16.840.1.661913.3.579.2.1246 1964 Unknown [id number] 2.16.840.1.398943.3.579.2.1245 1964 Unknown [id number] 2.16.840.1.004056.3.579.2.6 1964 Unknown [id number] 2.16.840.1.371369.3.579.2.6 1964 Unknown [id number] 2.16.840.1.651598.3.579.2.1246 1959 Medicaid [id number] 1960 Medicare [id number] Unknown [id number] Unknown Social History Date Type Detail Facility Start: 07-13-2023 End: 12-01-2023 No alcohol use No alcohol use [facility] [address] DO Work Phone: Comment on above: 1 pack daily; Start: 07-13-2023 End: 11-09-2023 Tobacco smoking status IDIS Smokes tobacco daily [facility] History of tobacco use [facility]: Start: 07-13-2023 End: 11-09-2023 Tobacco use and exposure Smokeless tobacco non-user [facility] Work Phone: Start: 07-22-2023 End: 12-01-2023 Alcohol intake Lifetime non-drinker (finding) [facility] Work Phone: Start: 07-13-2023 End: 12-01-2023 Tobacco use panel [facility] Work Phone: Start: 1965 Sex Assigned At Not on file [facility] Work Phone: Start: 07-12-2023 End: 08-10-2023 Exposure to SARS-CoV-2 (event) Not sure [facility] Medical Equipment Procedure Code Equipment Code Equipment Origin al Text Equipment Identifier Dates Lead, Capsurefix Novus, 52 Cm - [id number] Start: 08-05-2023 Lead, Capsurefix Novus, 45 Cm - [id number] Start: 08-05-2023 Pacemaker, Dual Chamber, [place] Mri Xt Dr - [id number] Start: 08-05-2023 Clinical Notes 08-31-2020 to [...] some point he had some evaluation in [place] that shows no significant obstructive coronary disease [...] night however but 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 No symptoms [...] Diagnosis Date Arrhythmia CHF (congestive heart failure) ([facility]) COPD (chronic obstructive pulmonary disease) ([facility]) Hypertension Social History Social History [...] breakfast cetirizine (ZYRTEC) 10 mg, oral, Nightly sgkdnqvcypd-qdcepdkib-xgpmkaun (TRELEGY-ELLIPTA) 100-62.5-25 mcg blister with device 1 [...] prepare this document. documented in this encounter [facility] [place] Work Phone: 08-10-2023 Instructions Vero Mccarthy LPN [...] Amador Son MD documented in this encounter [facility] [place] Work Phone: 08-05-2023 Nurse Note Patient discharge instructions reviewed with patient and , verbalized understanding. Lt chest dressing remains dry/intact, no hematoma, no ecchymosis. Patient able to teachback site care instructions, follow up appointments. IV x2 removed and patient discharged to home via w/c. [facility] 08-05-2023 Nurse Note Patient discharge instructions reviewed [...] and ice pack over site. Sterling from [employer] in room speaking to Pt and SO educating on home device monitor. Pt returned to room after echocardiogram. Denies needs at this time. documented in this encounter [facility] [place] Work Phone: 08-05-2023 Nurse Note Patient sitting up in chair, denies any complaints of incisional pain. Lt upper chest incision remains dry/intact. Will begin discharge instructions. [facility] [place] Work Phone: 08-05-2023 Nurse Note Patient ambulated to BR, gait steady. Pacer rep has already met with patient and . Lt upper chest dressing remains dry/intact. Lt arm in immobilizer and ice pack over site. [facility] Work Phone: 08-05-2023 Note Formatting of this n ote might be different from the original. Post EKG and CXR performed at bedside. Pt denies needs at this time. Left chest remains soft and stable with no hematoma or oozing. [facility] Work Phone: 08-05-2023 Miscellaneous Notes Post EKG [...] discussed with patient. documented in this encounter [facility] [place] Work Phone: 08-05-2023 Hospital Discharge instructions Ana M Kumari APRN-THREAD REELER - 08/05/2023 5:00 PM EDT Images from [...] your arm above shoulder level. Do not warp picker items that weigh greater than 10 [...] have been instructed by the device company new accounts representative regarding remote home monitoring. There are [...] sent through Care Everywhere.Pacemaker Insertion Discharge Instructions (Australian)documented in this encounter [facility] [place] Work Phone: 08-05-2023 Note Formatting of this [...] Pt denies further needs at this time. [facility] Work Phone: 08-05-2023 Note Table formatting fro [...] of infection. The patient should call the mercantile agent immediately if symptoms recur, or for any problems. The patient has been instructed accordingly. 2. Follow up with [facility] office in seven days for post-operative [...] implanted Device implanted [employer] dual-chamber pacemaker Kae SYED DR MRI model number W1 DR 017 number [id number]. Right atrial lead [employer] 5076/45 serial number [id number] 8 mm [id number]. Imp (more content not included)... [id number] 08-05-2023 Note Formatting of this n ote might be different from the original. Sedation Plan ASA 2 Mallampati class: II. Risks, benefits, and alternatives discussed with patient. 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 No symptoms [...] breakfast cetirizine (ZYRTEC) 10 mg, oral, Nightly tfdmuduwtob-lotqeglrt-kueqjgkl (TRELEGY-ELLIPTA) 100-62.5-25 mcg blister with device 1 [...] software was utilized to prepare this document. 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 No symptoms [...] breakfast cetirizine (ZYRTEC) 10 mg, oral, Nightly atjyqffytmd-zafocrwhp-yanpbrsc (TRELEGY-ELLIPTA) 100-62.5-25 mcg blister with device 1 [...] prepare this document. documented in this encounter [facility] Work Phone: 08-05-2023 Nurse Note Sterling from [employer] in room speaking to Pt and SO educating on home device monitor. [facility] 08-05-2023 Nurse Note Pt returned to room after echocardiogram. Denies needs at this time. 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 No symptoms [...] breakfast cetirizine (ZYRTEC) 10 mg, oral, Nightly idvmwehmbcd-bdbaeomeo-oclwepez (TRELEGY-ELLIPTA) 100-62.5-25 mcg blister with device 1 [...] prepare this document. documented in this encounter [facility] [place] Work Phone: 07-22-2023 Instructions Jazz Flynn RN [...] AMADOR SON MD documented in this encounter [facility] [place] Work Phone: 07-20-2022 Note CONSULTATION PROCEDURE DATE: [...] right medial portion of his leg. [facility] 05-07-2022 Note CONSULTATION CONSULTATION DATE: 05/07/2022 HISTORY [...] three months' time unless otherwise indicated. [facility] 01-14-2022 Note CONSULTATION CONSULTATION DATE: 01/14/2022 HISTORY [...] it was recommended that he see a tungsten tender, which he did do. He did a Holter monitor study and is following up with his tungsten tender on 01/28/2022. Current medications include gabapentin 300 [...] agrees with the plan of care. [facility] 11-19-2021 Note CONSULTATION CONSULTATION DATE: 11/19/2021 This [...] to S1. Activities such as standing, walking, teacher early childhood development and evening hours, stairs, bending and physical [...] up in the clinic post-procedure. [facility] Signed and Approved by: TERESO COLMENARES . 11/27/2021 14:13:00 [facility] 10-22-2021 Note CONSULTATION CONSULTATION DATE: 10/22/2021 HISTORY [...] with the plan of care. [facility] Signed and Approved by: TERESO COLMENARES . 11/04/2021 16:23:00 [facility] 10-01-2021 Note CONSULTATION CONSULTATION DATE: 10/01/2021 HISTORY [...] shape. He has seen Dr. Nunn in [place] in the past regarding his back, and [...] Patient agrees with the plan of care. [facility] Signed and Approved by: TERESO COLMENARES . 10/08/2021 16:01:00 [facility] 08-31-2020 Note Microbiology PROCEDURE: Blood [...] R1: This test was performed at: [facility], [address] [place] [address], [facility] , , [facility] Comment on above: Performed By: #### 1 [id number] ####[facility] [id number] [place] [address] 08-31-2020 Note Microbiology PROCEDURE: Blood Culture Charcoal [...] Locations R1: This test was performed at: [facility], [address] [place] [address], [id number]- , [place], [facility] Comment on above: Performed By: #### 1 [id number] ####[facility] [address] [place] [address] Evaluation note Diagnosis 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 Sinus bradycardia Other specified cardiac dysrhythmias Establishing care with new doctor, encounter for BMI 34.0-34.9,adult Sick sinus syndrome (CMS/HCC) Sinoatrial node dysfunction Simple chronic bronchitis (CMS/HCC) Simple chronic bronchitis Current smoker Other fatigue Preoperative cardiovascular examination Pre-operative cardiovascular examination documented in this encounter [facility] [place] Work Phone: Evaluation note* Diagnosis Other fatigue- [...] dysfunction Other fatigue documented in this encounter [facility] [place] Work Phone: Evaluation note* Diagnosis Localized swelling on left hand S/P placement of cardiac pacemaker 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 Abnormal stress test Other nonspecific abnormal cardiovascular system function study Sinus bradycardia Other specified cardiac dysrhythmias Sick sinus syndrome (CMS/HCC) Sinoatrial node dysfunction Essential hypertension, benign BMI 34.0-34.9,adult Current smoker documented in this encounter [facility] [place] Work Phone: Evaluation note* Diagnosis Localized swelling on left hand S/P placement of cardiac pacemaker documented in this encounter [facility] [place] Work Phone: Evaluation note* Diagnosis Cardiac pacemaker in situ Sinoatrial node dysfunction (Multi) Sinoatrial node dysfunction documented in this encounter [facility] [place] Work Phone: Evaluation note* Diagnosis Cardiac pacemaker in situ Sinoatrial node dysfunction (Multi) Sinoatrial node dysfunction documented in this encounter [facility] Work Phone: History of Present illness Narrative* Patient is here for cardiovascular evaluation for second opinion in regard to documents resting sinus bradycardia. The patient is 56-year-old with history of tobacco use and COPD was evaluated recently due to shortness of breath and his stress test showed questionable inferior wall ischemia. This led to a cardiac evaluation in [place] and its not clear to me whether [...] recent ischemic evaluation * 5 follow-up in [address] [place] [address] 600 DO Work Phone: History of Present illness Narrative* Patient is here for cardiovascular evaluation for second opinion in regard to documents resting sinus bradycardia. The patient is 56-year-old with history of tobacco use and COPD was evaluated recently due to shortness of breath and his stress test showed questionable inferior wall ischemia. This led to a cardiac evaluation in [place] and its not clear to me whether [...] ischemic evaluation * 5 follow-up in 6 [facility] Work Phone: History of Present illness Narrative* Patient is here for cardiovascular evaluation for second opinion in regard to documents resting sinus bradycardia. The patient is 56-year-old with history of tobacco use and COPD was evaluated recently due to shortness of breath and his stress test showed questionable inferior wall ischemia. This led to a cardiac evaluation in [place] and its not clear to me whether [...] ischemic evaluation * 5 follow-up in 6 [facility] Work Phone: History of Present illness Narrative* [...] ischemic evaluation. He underwent cardiac catheterization in [place] which showed no significant obstructive disease * [...] EKG or earlier if the need arise [facility] 600 DO Work Phone: Summary Purpose Family [...] Preoperative cardiovascular examination Procedures Transthoracic Echo Complete VT ECHO TTHRC R-T 2D W/WOM-MODE COMPL SPEC&COLR D Amador Son MD [address] [address] Referral ID Status Reason Start Date Expiration Date Visits Requested Visits Authorized [id number] Pending Review Perform Procedure 07/22/2023 07/21/2024 1 1 Specialty Diagnoses / Procedures Referred By Contac t Referred To Contact Diagnoses Sinus bradycardia Establishing care with new doctor, encounter for Procedures ECG 12 lead (Clinic Performed) Amador Son MD [address] [address] Referral ID Status Reason Start Date Expiration Date V isits Requested Visits Authorized [id number] Authorized 07/22/2023 07/21/2024 1 1 Specialty Diagnoses / Procedures Referred By Contac t Referred To Contact Radiology Diagnoses Pacemaker Procedures XR chest 2 views Ana M Kumari, HOUSEKEEPING ATTENDANT-THREAD REELER [address] [facility] Medical Office [facility], [address] [place] [address] Referral ID Status Reason Start Date Expiration Date Visits Requested Visits Authorized [id number] Authorized Perform Procedure 08/05/2023 08/04/2024 1 1 Specialty Diagnoses / Procedures Referred By Contac t Referred To Contact Cardiology Diagnoses Pacemaker Procedures Cardiac Device Check - In Clinic Ana M Kumari, HOUSEKEEPING ATTENDANT-THREAD REELER [address] [facility], [facility] [address] [place] [address] Referral ID Status Reason Start Date Expiration Date Visits Requested Visits Authorized [id number] Pending Review Perform Procedure 08/05/2023 08/04/2024 1 1 Specialty Diagnoses / Procedures Referred By Contac t Referred To Contact Cardiology Diagnoses Localized swelling on left hand S/P placement of cardiac pacemaker Procedures Vascular US upper extremity venous duplex left Naima Wright, HOUSEKEEPING ATTENDANT-THREAD REELER [address] [facility], [facility] [address] [place] [address] Referral ID Status Reason Start Date Expiration Date Visits Requested Visits Authorized [id number] Authorized Perform Procedure 08/09/2023 08/08/2024 1 1 Specialty Diagnoses / Procedures Referred By Contac t Referred To Contact Cardiology Diagnoses Cardiac pacemaker in situ Sinoatrial node dysfunction (Multi) Procedures Cardiac Device Check - Remote Amador Son MD [address] [facility] [address] [place] [address] Referral ID Status Reason Start Date Expiration Date Visits Requested Visits Authorized [id number] Pending Review Perform Procedure 08/08/2023 08/07/2024 1 1 Additional Source Comments (unrecognized sect ion and content) No Status Records FoundNo Status Records FoundNo Status Records FoundNo Status Records FoundNo Status Records FoundNo Status Records FoundNo Status Records FoundNo Status Records FoundNo Status Records Found INFORMATION SOURCE (unrecogn ized section and content) DATE CREATED AUTHOR 03/06/2021 [facility] DATE CREATED AUTHOR AUTHOR'S ORGANIZ ATION 03/12/2021 [facility] DATE CREATED AUTHOR AUTHOR'S ORGANIZ ATION 02/16/2022 [facility] DATE CREATED AUTHOR AUTHOR'S ORGANIZ ATION 07/16/2022 [facility] DATE CREATED AUTHOR AUTHOR'S ORGANIZ ATION 07/16/2022 [employer] DATE CREATED AUTHOR AUTHOR'S ORGANIZ ATION 09/17/2022 [facility] DATE CREATED AUTHOR AUTHOR'S ORGANIZ ATION 11/10/2023 [facility] DATE CREATED AUTHOR AUTHOR'S ORGANIZ ATION 02/07/2024 [facility] DATE CREATED AUTHOR AUTHOR'S ORGANIZ ATION 02/28/2024 [facility] Reason for Visit (unrecogniz ed section and content) Reason Comments New Patient Visit Pt is here today as a new patient from Dr. Ty Specialty Diagnoses / Procedures Referred By Isela mckay Referred To Contact Cardiology Diagnoses Sinus bradycardia Valentino Ty MD [address] [facility], [address] [place] [address] Amador Son MD [address] [facility], [facility] [address] [place] [address] Referral ID Status Reason Start Date Expiration Date Visits Requested Visits Authorized [id number] Authorized Specialty Services Required 07/15/2023 07/14/2024 1 1 Specialty Diagnoses / Procedures Referred By Isela mckay Referred To Contact Diagnoses Sinus bradycardia Chronotropic incompetence Sick sinus syndrome (CMS/HCC) Other fatigue Sinus bradycardia [R00.1] Chronotropic incompetence [I45.89] Sick sinus syndrome (CMS/HCC) [I49.5] Other fatigue [R53.83] Procedures VT INS NEW/RPLCMT PRM PM W/TRANSV ELTRD ATRIAL&VENT PPM IMPLANT DUAL Amador Son MD [address] [facility] [address] [place] [address] [facility] [address] [place] [address] Referral ID Status Reason Start Date Expiration Date Visits Re quested Visits Authorized [id number] 1 1 Reason Comments Wound Check Patient is having sw elling in his right hand Specialty Diagnoses / Procedures Referred By Isela mckay Referred To Contact Cardiology Diagnoses Localized swelling on left hand S/P placement of cardiac pacemaker Procedures Vascular US upper extremity venous duplex left Yusuf-Naima Rodriguez E, HOUSEKEEPING ATTENDANT-THREAD REELER [address] [facility] Medical [facility] [address], [address] [place] [address] Referral ID Status Reason Start Date Expiration Date Visits Requested Visits Authorized [id number] Authorized Perform Procedure 08/09/2023 08/08/2024 1 1 Specialty Diagnoses / Procedures Referred By Contac t Referred To Contact Cardiology Diagnoses Cardiac pacemaker in situ Sinoatrial node dysfunction (Multi) Procedures Cardiac Device Check - Remote Amador Son MD [address] [facility] [address] [place] [address] Referral ID Status Reason Start Date Expiration Date Visits Requested Visits Authorized [id number] Pending Review Perform Procedure 08/08/2023 08/07/2024 1 1 Care Teams (unrecognized sec tion and content) Project Production Engineer Relationship Specialty Start Date End Date Ishmael Simon MD [address] [place] [address] PCP - General Family Medicine 06/29/23 Project Production Engineer Relationship Specialty Start Date End Date Ishmael Simon MD [address] [place] [address] PCP - General Family Medicine 06/29/23 Project Production Engineer Relationship Specialty Start Date End Date Ishmael Simon MD [address] [place] [address] PCP - General Family Medicine 06/29/23 Project Production Engineer Relationship Specialty Start Date End Date Ishmael Simon MD [address] [place] [address] PCP - General Family Medicine 06/29/23 Project Production Engineer Relationship Specialty Start Date End Date Ishmael Simon MD PCP - General Family Medicine 06/29/23 Project Production Engineer Relationship Specialty Start Date End Date Ishmael Simon MD [address] [place] [address] PCP - General Family Medicine 06/29/23 Naima Wright, HOUSEKEEPING ATTENDANT-THREAD REELER [address] [facility] Medical [facility], [address] [place], [place] [id number] Nurse Practitioner Cardiology 11/07/23 Scheduled Active and Recently Administ ered Medications [...] on Tue08/05/23 at 1230, Preprocedure, call center operations manager to EP lab 1221 (New Bag - [...] BE BASED ON THE PRIMARY CLINICAL RECORDS. [facility] provides no warranty or guarantee of the accuracy or completeness of information in this document.
--- NOTE | 2024-03-01 12:57 | P.CN_ITS ---
Consult Note: HPI Data of Consult Patient: known to practice within the last 3 years Requesting Physician: Danielle Bergeron NP Primary Care Provider: Ishmael Watts MD Consult Narrative Reason for consult: f/u Narrative: Abhishek Mayen a pleasant 59 year old male presents for evaluation of low back, right thigh and groin pain. Longstanding hx of pain unresponsive to PT, tylenol, NSAIDs, heat/ice. Recently underwent a repeat right L1/2 L3/4 RFA with no improvement ongoing, has had significant improvement in the past. currently utilizing nabumetone 500mg BID, gabapentin 300mg daily, percocet 7.5mg QID PRN from PCP and baclofen 10mg BID without side effects. cc:: CC: Danielle Bergeron NP Review of Systems ROS Status of ROS 10 or more systems reviewed and unremark able except as noted in history and below Musculoskeletal Reports: back pain and extremity pain Meds Home Medications and Allergies Home Medications ?Medication ?Instructions ?Recorded ?Confirmed ?Type albuterol 90 mcg/actuation aerosol mcg inhalation .Q6 10/14/22 History inhaler baclofen 10 mg tablet 10 mg PO BID 10/14/22 01/24/24 History fluticasone fur. 100 mcg-umeclid 1 inh inhalation DAILY 10/14/22 01/24/24 History 62.5 mcg-vilant 25 mcg inhalat.powder (Trelegy Ellipta) furosemide 40 mg tablet 40 mg PO BID 10/14/22 01/24/24 History gabapentin 300 mg capsule 300 mg PO DAILY 10/14/22 01/24/24 History montelukast 10 mg tablet 10 mg PO DAILY 10/14/22 01/24/24 History nabumetone 500 mg tablet 500 mg PO BID 10/14/22 01/24/24 History omeprazole 40 mg capsule,delayed 40 mg PO DAILY 10/14/22 01/24/24 History release oxycodone-acetaminophen 7.5 mg-325 1 tab PO Q6H 10/14/22 01/24/24 History mg tablet spironolactone 100 mg tablet 100 mg PO DAILY 10/14/22 01/24/24 History Allergies Allergy/AdvReac Type Severity Reaction Status Date / Time No Known Drug Allergies Allergy Verified 01/24/24 09:05 Exam Constitutional Documenting provider has reviewed patient's vital signs: yes Common normals: no apparent distress, oriented x3, healthy appearing, alert and well nourished General appearance: cooperative Orientation/consciousness: Yes awake, Yes oriented to person, Yes oriented to place and Yes oriented to time HENMT Common normals: normocephalic, hearing grossly normal bilaterally and moist oral mucous membranes Head and scalp: normocephalic Eye Common normals: PERRL Pupil: PERRL Neck & C-Spine Common normals: full ROM General: normal visual inspection Chest Common normals: inspection of chest normal Respiratory Common normals: normal respiratory effort, no retractions and no use of accessory muscles Effort & inspection: able to speak in complete sentences Back & Pelvis Common normals: thoracic and lumbar spine normal to inspection and straight leg raise negative bilaterally Lumbar spine/lower back: ROM limited and straight leg raise negative bilaterally Sacroiliac joints: SI joints normal Other: negative internal and external log roll of right hip sensation intact BLE increased pain with standing and walking, improved with sitting Extremity Common normals: normal to inspection, full ROM and normal capillary refill Other: muscle strength 5/5 bilat LE with intact sensation Neuro Common normals: oriented x3, CN's II-XII intact bilaterally, moves all extremities, no focal motor deficits, no sensory deficits noted and deep tendon reflexes 2+ bilaterally Sensorium/orientation: alert Motor exam: strength 5/5 throughout and no movement abnormalities noted Psych Common normals: mental status grossly normal, thought process normal, cooperative, affect normal, speech normal and activity/motor behavior normal Speech: normal speech Thought process: normal thought process Results Additional Findings Additional findings: If on a controlled substance or opioids, I have checked an [facility] report on this patient and there are no aberrancies noted in the prescribing history.??If on a controlled substance or opioid a drug screen was completed and reviewed within the last year, and if there has not been a drug screen completed we ordered one today to monitor higher risk, state monitored pain medication use. As part of providing excellent, safe, comprehensive care, the following was completed at our patient's visit: 1. A medication reconciliation and review to ensure accurate knowledge of current/active medications, including asking our patients to inform us about any pous-jnx-qbsoltl medications or herbal remedies/nutritional supplements/alternative remedies. 2. A review to specifically ensure our patients have had annual screening for screening for depression, screening for tobacco use, and screening for unhealthy alcohol use. For concerning screenings had a discussion with the patient, provided patient education, and recommended follow-up with primary care provider when appropriate. If patient noted with a risk of falling, they received education on strength, gait, and balance training to prevent future risk of falling. Assessment and Plan Assessment and Plan (1) Lumbar degenerative disc disease: (2) Lumbar spondylosis: (3) Myofascial pain: (4) Right thigh pain: Plan questionable lumbar stenosis with NC symptoms as pain is increased with standing and walking. at this time we will update a lumbar MRI without contrast to evaluate lumbar DDD and lumbar spondylosis for additional interventional therapy vs ns consult could consider sports medicine consult for right thigh pain continue baclofen 10mg BID, could not tolerate higher doses/frequency f/u with Dr Aguero to review MRI and formulate additional care plan
== END 2024-03-01 12:26 | disposition home or self-care (01) ==
LOC: PM 12:25
PROVIDERS: PCP Family Medicine; Visit Provider Nurse Practitioner
DX: M51.369 Other intervertebral disc degeneration, lumbar region without mention of lumbar back pain or lower extremity pain (principal); M47.816 Spondylosis without myelopathy or radiculopathy, lumbar region; M79.18 Myalgia, other site; M79.651 Pain in right thigh
CPT/HCPCS: G0463

== ENCOUNTER 2024-04-10 11:23 | Outpatient (OUT) | payer MEDICARE, SELFPAY ==
--- NOTE | 2024-04-10 | CONS_ITS ---
CONSULTATION DATE: 04/10/2024 TO: Dr. Watts HISTORY: Patient returns today complaining of pain in his right leg, right groin area and at times mid back area or upper lumbar area. He describes the pain as being between 0-7/10 pain, primarily in the right groin, inner part of his thigh increased with activities such as standing, walking and performing transitioning maneuvers. He feels most comfortable in the semi-recumbent position. He denies any change in bowel and bladder habits, but reports progressive tightness, at times tingling and at times weakness of his right lower extremity. MEDICATION: His current medication includes Aleve p.r.n., baclofen 10 mg b.i.d., gabapentin 300 mg at h.s., Percocet 7.5 mg q. 6 hours p.r.n. His WING on today?s visit is 7%. EXAMINATION: Notable for patient having hypoesthesia along the right L2 and L3 dermatome, weakness of his right iliopsoas, depressed right patellar reflex, positive reverse right sided straight leg raise and significant myofascial spasm of his lumbar paravertebral muscles, occurring more on his right than the left side. He had 3/5 strength of his right quadriceps as well. IMPRESSION: Our impression is patient with chronic pain secondary to right L2- 3, possibly L4 radiculopathy. His MRI did reveal arachnoiditis with nerve clumping at multiple levels and myofascial dysfunction with myalgia and spasm of right erector spinae muscle. He wishes to desire to avoid surgery if at all possible. RECOMMENDATIONS: I have recommended he consider a right L2-3, L3-4 transforaminal epidural steroid injection under fluoroscopic guidance. I have asked him to start aquatic therapy. Will contact your office to see if it is okay if we can increase his gabapentin to 300 mg one pill t.i.d., and will trial increasing his baclofen as well, 10 mg pills one in the morning, half in the afternoon and one in the evening. I have gone over the details of the procedure with the patient. All his questions answered. He agrees to proceed with the outlined plan. As part of providing excellent, safe, comprehensive care, the following was completed at our patient's visit: 1. A medication reconciliation and review to ensure accurate knowledge of current/active medications, including asking our patients to inform us about any [id number] medications or herbal remedies/nutritional supplements/alternative remedies. 2. A review to specifically ensure our patients have had annual screening for: elevated body mass index (BMI, see intake chart for exact total), tobacco use, screening for depression, and screening for unhealthy alcohol use. When screening is concerning, patients are provided with education and the specific recommendation to discuss the concerning health issue and treatment options with their primary care provider. ASHLEY
--- OUTSIDE RECORDS SUMMARY | 2024-04-10 11:29 | XMS_ITS | CCD ---
Author Organization [facility] Care Team Providers Care Shell Reprint Operator Name Role Phone SIMONE RUIZ Admitting Unavailable SIMONE RUIZ Attending Unavailable ISHMAEL SIMON Referring Unavailable ISHMAEL SIMON Primary Care Unavailable JEY ELISE Attending Unavailable JEY ELISE R Surgeon Unavailable GA Procedure Practitioner Unavailab ISHMAEL Campoverde Primary Care Unavailable ISHMAEL SIMON Referring Unavailable JEY ELISE R Admitting Unavailable JEY ELISE R Attending Unavailable ISHMAEL SIMON Primary Care Unavailable ISHMAEL SIMON Referring Unavailable JEY ELISE R Admitting Unavailable Ishmael Simon Unavailable Unavailable Unavailable Karson, Dr. Armstrong Attending Unavaila ble Jamaroulnic, Dr. Armstrong Referring Unavaila ble Alfred, Dr. Ishmael Vallejo Primary Care Unavai lable Karson, Dr. Armstrong Attending Unavaila ble Traboulnic, Dr. Armstrong Referring Unavaila ble Naderemarilee, Dr. Ishmael [place] Primary Care Anupamavachavez Simon, Dr. Ishmael Vallejo Primary Care Unavai lable Alfred, Dr. Ishmael Vallejo Referring Unavai lable Trabsandi, Dr. Armstrong Attending Unavaila ble NADTAVIA, DR ISHMAEL Rae Primary Care Unavailable IBARRA ., DR RICKY Bateman Attending Unavailable IBARRA ., DR RICKY Bateman Consulting Unavailable IBARRA ., DR RCIKY Bateman Admitting Unavailable LAKSHMIPATHY ., WILDER Admitting [...] Rae Primary Care Unavailable LAKSHMIPATHY ., NARENDSOSA Consulting Anupama vailable LAKSHMIPATHY ., NARENDRANATH Admitting Anupama vailable LAKSHMIPATHY ., NARENDADRIENNEATH Attending Anupama vailable LAKSHMIPATHY ., NARENDRANATH Consulting Anupama vailable ALFRED, DR ISHMAEL Rae Primary Care Unavailable COLMENARES ., TERESO Consulting Unavailable IBARRA ., DR RICKY Bateman Attending Unavailable IBARRA ., DR RICKY Bateman Admitting Unavailable NADERER, DR ISHMAEL Rae Primary Care Unavailable LAKSHMIPATHY ., NARENDRANATH Admitting Anupama vailable LAKSHMIPATHY ., NARENDRANATH Attending Anupama vailable LAKSHMIPATHY ., NARENDRANATH Consulting Anupama vailable NADTAVIA, DR ISHMAEL Rae [...] DR FLEX Hunt Consulting Unavailable NADERER, DR IHSMAEL Rae Primary Care Unavailable COLMENARES ., TERESO [...] vailable LAKSHMIPATHY ., WILDER Attending Anupama vailable NADTAVIA, DR ISHMAEL Rae Primary Care Unavailable NADEREMarilee, DR ISHMAEL Rae Attending Unavailable NADERER, DR ISHMAEL Rae Admitting Unavailable NADERER, DR ISHMAEL Rae Primary Care Unavailable ZIEBER, DR FLEX Hunt Consulting Unavailable NADERER, DR ISHMAEL Rae Consulting Unavailable COLMENARES ., TERESO Consulting Unavailable IBARRA ., DR RICKY Bateman Admitting Unavailable IBARRA ., DR RICKY Bateman Attending Unavailable NADEREMarilee, DR ISHMAEL Rae Primary Care Unavailable Nadtavia LANE, Ishmael Vallejo Primary Care Provider Ishmael Simon MD Primary Care Provider VALENTINO TY Attending Unavailable ALFRED, ISHMAEL VALLEJO Primary Care Unavailabl e VALENTINO TY Referring Unavailable NADERER, ISHMAEL [place] Primary [facility] Unavailabl e SON, AMADOR N Attending Unavailable NADERER, [facility] Care Unavailabl e BETHANY TYF Referring Unavailable SON, AMADOR N Attending Unavailable NADERER, [facility] Primary Care Unavailabl e NADERER, [facility] Primary Care Unavailabl e ADRIANA, NAIMA E Attending Unavaila ble NADERER, ISHMAEL CLE[place] Primary Care Unavailabl e NADERER, ISHMAEL Attending Unavailable NADERER, ISHMAEL Attending Unavailable NADERER, ISHMAEL Attending Unavailable NADERER, ISHMAEL Attending Unavailable Naderer Ishmael LANEony Primary Care Provider Adriana DIRECTOR OF KNOWLEDGE MANAGEMENT-PEST CONTROLLER, Naima E Unavailable Ishmael Simon MD [facility] Care Provider EARL WRIGHTCI E Referring Unavaila ble NADERER, ISHMAEL [place] Primary [facility] Unavailabl e SON, AMADOR N Referring Unavailable NADERER, [facility] Unavailabl e ANA M KUMARI Referring Unavailable NADERER, [facility] Unavailabl e ANA M KUMARI Referring Unavailable NADERER, [facility] Unavailabl e SON, AMADOR N Referring Unavailable NADERER, [facility] Unavailabl e SON, AMADOR N Referring Unavailable NADERER, [facility] Unavailabl e Raulr Ishmael LANE Primary Care Provider Danielle Contreras Attending Provider Danielle Bergeron Attending Unavailable RaulrIshmael Primary Care Unavailable Danielle Bergeron Admitting Unavailable Danielle Bergeron Attending Unavailable Chloeerer, [facility] Primary [facility] Unavailable Danielle Bergeron Admitting Unavailable Medications Current Medications Medication Drug Class(es) Dates Sig (Normalized) Sig (Original) acetaminophen 325 mg oral tablet (1 source) Start: 08-05-2023 take 1 tablet by mouth every four hours as needed acetaminophen (Tylenol) tablet 650 mg aspirin 81 mg delayed release oral tablet (3 sources) Platelet Aggregation Inhibitor, Nonsteroidal Anti-inflammatory Drug Start: 12-01-2023 End: 11-30-2024 take 1 tablet by mouth in the morning aspirin 81 MG EC tablet Take 81 mg by mouth in the morning. 12/01/2023 11/30/2024 Active baclofen 10 mg oral tablet (3 sources) gamma-Aminobutyri c Acid-ergic Agonist Start: 01-27-2023 take 0.5-1 tablets by mouth twice daily baclofen (Lioresal) 10 MG tablet TAKE 1/2 TO 1 TABLET BY MOUTH TWICE A DAY 01/27/2023 Active cetirizine hydrochloride 10 mg oral tablet (14 sources) Histamine-1 Receptor Antagonist Start: 11-28-2023 take 1 tablet by mouth once daily cetirizine (ZyrTEC) 10 MG tablet Indications: Allergic rhinitis due to pollen TAKE 1 TABLET BY MOUTH EVERY DAY 90 tablet 3 11/28/2023 Active cholecalciferol 0.05 mg oral tablet (6 sources) Vitamin D Start: 07-06-2019 take 1 tablet by mouth before mealtime Cholecalciferol (Vitamin D3) 50 mcg (2,000 unit) tablet Active 50 MCG PO Before meals July 06, 2019 12:00am take 1 capsule by mouth once piero ly Vitamin D 50 MCG (2000 UT) Oral Capsule TAKE 1 CAPSULE Daily Quantity: 90 Refills: 0 Ordered: 28-Jan-2022 DO Active Svpegognaqk-Aajarmvbw-Rixfcq er (16 sources) Anticholinergic, Corticosteroid, beta2-Adrenergic Agonist Start: 07-06-2019 Oidkdcfzapf-Ctebwabru-Emnoer er (Trelegy Ellipta) 100-62.5-25 mcg blister with device Active 1 MCG INHALATION As Directed July 06, 2019 12:00am take 1 dose by inhal ation in the morning Pkhputmednn-Qhpljumhm-Nvqfwv (Trelegy El lipta) 100-62.5-25 MCG/ACT aerosol powder Inhale 1 Dose in the morning. Active fluticasone-umec lidin-vilanter (TRELEGY-ELLIPTA) 100-62.5-25 mcg blister with device Inhale 1 puff. Use as directed Active furosemide 40 mg oral tablet (18 sources) Loop Diuretic Start: 06-23-2018 take 1 tablet by mouth at bedtime furosemide (Lasix) 40 MG tablet Indications: Chronic diastolic heart failure (CMS/HCC) TAKE 1 TABLET (40 MG) BY MOUTH IN THE MORNING AND AT BEDTIME 180 tablet 3 04/18/2023 Active Start: 06-19-2018 End: 06-23-2018 take 1 tablet by mouth once daily Furosemide 40 mg Tablet Discontinued 40 MG PO Daily June 19, 2018 12:00am June 23, 2018 12:19pm gabapentin 300 mg oral capsule (16 sources) Anti-epileptic Agent Start: 07-06-2019 take 1 capsule by mouth once daily at bedtime gabapentin (Neurontin) 300 MG capsule Indications: Other intervertebral disc degeneration, lumbar region , Degeneration of lumbar or lumbosacral intervertebral disc TAKE 1 CAPSULE BY MOUTH EVERYDAY AT BEDTIME 30 capsule 2 02/03/2024 Active montelukast 10 mg oral tablet (16 sources) Leukotriene Receptor Antagonist Start: 07-06-2019 take 1 tablet by mouth before mealtime Montelukast 10 mg tablet Active 10 MG PO Before meals July 06, 2019 12:00am nabumetone 500 mg oral tablet (16 sources) Nonsteroidal Anti-inflammatory Drug Start: 07-06-2019 take 1 tablet by mouth twice daily nabumetone (Relafen) 500 MG tablet Indications: Carpal tunnel syndrome, bilateral upper limbs , Carpal tunnel syndrome TAKE 1 TABLET BY MOUTH TWICE A DAY 180 tablet 3 08/25/2023 Active take 1 tablet by mouth once victoriano y Nabumetone 500 MG Oral Tablet TAKE 1 TABLET EVERY 12 HOURS DAILY. Quantity: 0 Refills: 0 Ordered: 28-Jan-2022 DO Active omeprazole 40 mg delayed release oral capsule (16 sources) Proton Pump Inhibitor Start: 12-13-2023 take 1 capsule by mouth once daily omeprazole (PriLOSEC) [address] capsule Indications: Alcoholic gastritis without bleeding , Alcoholic gastritis TAKE 1 CAPSULE BY MOUTH EVERY DAY 90 capsule 1 12/13/2023 Active Start: 06-19-2018 take 1 tablet by mindi th once daily Omeprazole 20 mg Tablet,Delayed Release (Dr/Ec) Active 20 MG PO Daily June 19, 2018 12:00am 2 ml ondansetron 2 mg/ml injection (1 source) Serotonin-3 Receptor Antagonist Start: 08-05-2023 take 4 mg intravenously every eight hours as needed ondansetron (Zofran) injection 4 mg oxygen (O2) gas therapy (7 sources) oxygen (O2) gas therapy 2l at bedtime Active oxygen (O2) gas therapy 2l at bedtime 0 Active perflutren lipid microspheres (Definity) injection 0.5-10 mL of dilution (1 source) Start: 08-05-2023 perflutren lip id microspheres (Definity) injection 0.5-10 mL of dilution predniSONE 10 mg oral tablet (2 sources) Start: 07-06-2019 Prednisone 10 mg Tablet Active 60 MG PO Daily July 06, 2019 12:00am administer with food or milk spironolactone 50 mg oral tablet (18 sources) Aldosterone Antagonist Start: 06-23-2018 Spironolactone (Aldactone) 50 mg Tablet Active 25 MG PO Daily 0 June 23, 2018 12:18pm Start: 06-19-2018 End: 06-23-2018 take 1 tablet by mouth once daily Spironolactone (Aldactone) 50 mg Tablet Discontinued 50 MG PO Daily June 19, 2018 12:00am June 23, 2018 12:19pm take 1 tablet by mindi th in the morning spironolactone (Aldactone) 100 MG tablet Take 1 tablet by mouth in the morning. Active traMADol hydrochloride 50 mg oral tablet (1 source) Opioid Agonist Start: 08-05-2023 take 1 tablet by mouth every six hours as needed traMADol (Ultram) tablet 50 mg Completed/Discontinued Medications Medication Drug Class(es) Dates Sig (Normalized) Sig (Original) acetaminophen 325 mg / oxyCODONE hydrochloride 7.5 mg oral tablet (20 sources) Opioid Agonist Start: 01-27-2024 End: 04-29-2024 take 1 tablet by mouth four times daily as needed for pain oxyCODONE-acetaminop hen (Percocet) 7.5-325 MG tablet Indications: Degeneration of lumbar intervertebral disc Take 1 tablet by mouth 4 (four) times a day as needed for severe pain or moderate pain 120 tablet 03/01/2024 03/30/2024 Discontinued (Reorder) Start: 03-30-2021 take 1 tablet by mindi th four times daily as needed oxyCODONE-Acetaminophen 7.5-325 MG Oral Tablet TAKE 1 TABLET BY MOUTH FOUR TIMES A DAY NEEDED Quantity: 120 Refills: 0 Ordered: 01-Apr-2021 DO Start : 30-Mar-2021 Active Start: 06-22-2018 take 1 tablet by mindi th every six hours as needed for pain Oxycodone-Acetaminophen (Percocet) 7.5-3 25 mg tablet Active 1 TAB PO Q6H as needed for Pain June 22, 2018 12:00am Start: 06-19-2018 End: 06-22-2018 take 1 tablet by mouth every four to six hours as needed for pain Oxycodone-Acetaminophen 5-325 mg Tablet Discontinued 1 TAB PO EVERY 4-6 HOURS as needed for Pain June 19, 2018 12:00am June 22, 2018 9:37am 200 actuat albuterol 0.09 mg/actuat dry powder inhaler (11 sources) beta2-Adrenergic Agonist Start: 06-23-2018 End: 10-21-2018 Albuterol Sulfate 90 mcg/actuation aerosol powdr breath activated Discontinued 2 INH INHALATION Four times daily 06 07June 23, 2018 12:00am October 19, 2018 11:00pm October 20, 2018 11:02pm take 2 puff(s) by in halation every four hours for wheezing albuterol HFA 90 mcg/act inhaler Inhale 2 puffs every 4 (four) hours if needed for wheezing Active take 2 puff(s) by in halation every four hours albuterol (Ventolin HFA) 90 mcg/actuatio n inhaler Inhale 2 puffs every 4 hours if needed. Active ceFAZolin 1000 mg injection (1 source) Cephalosporin Antibacterial Start: 08-05-2023 End: 08-05-2023 ceFAZolin in dextrose (iso-os) (Ancef) IVPB 1 g chlorhexidine gluconate 40 mg/ml medicated liquid soap (1 source) Start: 08-05-2023 End: 08-05-2023 chlorhexidine (Hibiclens) 4 % liquid Start: 08-05-2023 End: 08-05-2023 chlorhexidine (Hibiclens) 4 % liquid cyclobenzaprine hydrochloride 10 mg oral tablet (2 sources) Muscle Relaxant Start: 09-15-2018 End: 07-06-2019 take 1 tablet by mouth three times daily Cyclobenzaprine 10 mg tablet Discontinued 10 MG PO Three times daily 9 September 14, 2018 11:00pm July 06, 2019 12:12am Dupixent SOPN (1 source) Dupixent SOPN US E DIRECTED Quantity: 0 Refills: 0 Ordered: 14-Jul-2022 DO Active lisinopril 20 mg oral tablet (2 sources) Angiotensin Converting Enzyme Inhibitor Start: 06-19-2018 End: 06-23-2018 take 1 tablet by mouth once daily Lisinopril 20 mg Tablet Discontinued 20 MG PO Daily June 19, 2018 12:00am June 23, 2018 12:17pm methocarbamol 750 mg oral tablet (2 sources) Muscle Relaxant Start: 06-19-2018 End: 07-06-2019 take 1 tablet by mouth twice daily as needed for pain Methocarbamol (Robaxin-750) 750 mg Tablet Discontinued 750 MG PO Twice daily as needed for Pain June 19, 2018 12:00am July 06, 2019 12:10am methylPREDNISolone 16 mg oral tablet (4 sources) Corticosteroid Start: 06-23-2018 End: 07-06-2019 take 2 tablets by mouth once daily in the morning Methylprednisolone (Medrol) 16 mg tablet Discontinued 32 MG PO Every morning July 06, 2019 12:09am July 06, 2019 12:09am mupirocin 0.02 mg/mg topical ointment (1 source) RNA Synthetase Inhibitor Antibacterial Start: 08-05-2023 End: 08-05-2023 mupirocin (Bactroban) 2 % ointment 1 Application Start: 08-05-2023 End: 08-05-2023 mupirocin (Bactroban) 2 % oi ntment 1 Application Oxygen (5 sources) Oxygen 2l at bedtime Quantity: 0 Refills: 0 Ordered: 28-Jan-2022 DO Active 1000 ml sodium chloride 9 mg/ml injection (2 sources) Start: End: sodium chloride 0.9% infusion tamsulosin hydrochloride 0.4 mg oral capsule (2 sources) alpha-Adrenergic Prudencio Start: End: take 1 capsule by mouth once daily Tamsulosin (Flomax) 0.4 mg Capsule Discontinued 0.4 MG PO Daily June 19, 2018 12:00am July 06, 2019 12:08am tiotropium 0.018 mg inhalation powder (2 sources) Anticholinergic Start: End: take 1 capsule by inhalation once daily Tiotropium [place] (Spiriva With Handihaler) 18 mcg capsule, w/inhalation device Discontinued 1 CAP INHALATION Daily June 23, 2018 12:00am July 06, 2019 12:12am puncture 1 cap using device; one dose = 2 inhalations triamcinolone acetonide 1 mg/ml topical cream (4 [...] [Right lower quadrant pain] Onset: 06-11-2022 Episodic Alcohol-related disorders (4 sources) Alcoholic gastritis; Translations: [Alcoholic gastritis without bleeding] Onset: 04-13-2023 04-13-2023 Chronic Cardiac dysrhythmias (20 sources) Sick sinus syndrome; Translations: [Sick sinus syndrome] Onset: 07-13-2023 07-22-2023 Chronic Chronic obstructive pulmonary disease and bronchiectasis (20 sources) Chronic obstructive lung disease; Translations: [Chronic airway obstruction, not elsewhere classified] Onset: 04-13-2023 07-22-2023 Chronic Comment on above: Problem List clean-u p per request of Phys. EHR Cmte Conduction disorders (20 sources) Chronotropic incompetence; Translations: [Other specified conduction disorders] Onset: 07-13-2023 07-22-2023 Chronic Congestive heart failure; nonhypertensive (11 sources) Chronic diastolic heart failure; Translations: [Chronic diastolic (congestive) heart failure] Onset: 04-13-2023 Resolved: 12-01-2023 07-22-2023 Chronic Diabetes mellitus with complications (10 sources) Type 2 diabetes mellitus with hyperglycemia; Translations: [Type 2 diabetes mellitus] Onset: 05-13-2022 07-22-2023 Chronic Disorders of lipid metabolism (3 sources) Hyperlipidemia, unspecified; Translations: [Dyslipidemia] Onset: 05-13-2022 04-13-2023 Chronic Essential hypertension (15 sources) Essential (primary) hypertension; Translations: [Benign essential hypertension] Onset: 05-13-2022 07-22-2023 Chronic Comment on above: Problem List clean-u p per request of Phys. EHR Cmte Fluid and electrolyte disorders (4 sources) Hyponatremia; Translations: [Hypo-osmolality and hyponatremia] 06-19-2018 Episodic Comment on above: Problem List clean-u p per request of Phys. EHR Cmte Genitourinary symptoms and ill-defined conditions (6 sources) Dysuria; Translations: [Dysuria] Onset: 02-06-2024 02-06-2024 Episodic Comment on above: Problem List clean-u p per request of Phys. EHR Cmte Hyperplasia of prostate (2 sources) Benign prostatic hypertrophy with outflow obstruction; Translations: [Benign prostatic hyperplasia with lower urinary tract symptoms] Onset: 04-13-2023 04-13-2023 Chronic Inflammatory conditions of male genital organs (2 sources) Prostatitis; Translations: [Inflammatory disease of prostate, unspecified] Onset: 02-06-2024 02-06-2024 Episodic Nonspecific chest pain (2 sources) Atypical chest pain; Translations: [Other chest pain] 04-20-2023 Episodic Comment on above: Problem List clean-u p per request of Phys. EHR Cmte Nutritional deficiencies (6 sources) Vitamin D deficiency, unspecified; Translations: [Vitamin D deficiency] Onset: 05-07-2022 Chronic Osteoarthritis (2 sources) Osteoarthritis of right hip joint; Translations: [Unilateral primary osteoarthritis, right hip] Onset: 04-13-2023 04-13-2023 Chronic Other connective tissue disease (4 sources) Neuralgia and neuritis, unspecified; Translations: [NEURALGIA AND NEURITIS UNSPECIFIED] Onset: 07-23-2022 Episodic Other hereditary and degenerative nervous system conditions (1 source) Dystonia, unspecified; Translations: [DYSTONIA UNSPECIFIED] Onset: 07-30-2022 Chronic Other inflammatory condition of skin (2 sources) Plaque psoriasis; Translations: [Psoriasis vulgaris] Onset: 04-13-2023 04-13-2023 Chronic Other lower respiratory disease (1 source) Dyspnea, unspecified; Translations: [Dyspnea, unspecified] Onset: 02-15-2022 Episodic Other lower respiratory disease (2 sources) Rib pain; Translations: [Pleurodynia] 04-20-2023 Episodic Comment on above: Problem List clean-u p per request of Phys. EHR Cmte Other male genital disorders (2 sources) Secondary erectile dysfunction; Translations: [Male erectile dysfunction, unspecified] Onset: 04-13-2023 04-13-2023 Chronic Other nervous system disorders (4 sources) Other specified mononeuropathies; Translations: [OTHER SPECIFIED MONONEUROPATHIES] Onset: 07-20-2022 Chronic Other nervous system disorders (1 source) Other chronic pain; Translations: [OTHER CHRONIC PAIN] Onset: 01-22-2022 Chronic Other nervous system disorders (2 sources) Ulnar neuropathy of left arm; Translations: [Lesion of ulnar nerve, left upper limb] Onset: 04-13-2023 04-13-2023 Chronic Other nervous system disorders (2 sources) Carpal tunnel syndrome of left wrist; Translations: [Carpal tunnel syndrome, left upper limb] Onset: 04-13-2023 04-13-2023 Chronic Other nutritional; endocrine; and metabolic disorders (5 sources) Obesity; Translations: [Obesity, unspecified] Chronic Other nutritional; endocrine; and metabolic disorders (1 source) Obesity, unspecified; Translations: [OBESITY UNSPECIFIED] Onset: 05-13-2022 Chronic Other nutritional; endocrine; and metabolic disorders (11 sources) Body mass index 30+ - obesity; Translations: [Body mass index (BMI) 34.0-34.9, adult] Onset: 04-13-2023 07-22-2023 Chronic Other nutritional; endocrine; and metabolic disorders (2 sources) Body mass index (BMI) 34.0-34.9, adult; Translations: [Body mass index (BMI) 34.0-34.9, adult] Onset: 07-13-2023 Chronic Other skin disorders (2 sources) Localized swelling of left hand; Translations: [Localized swelling, mass and lump, left upper limb] 08-10-2023 Episodic Peripheral and visceral atherosclerosis (11 sources) Peripheral vascular disease; Translations: [Peripheral vascular disease, unspecified] Onset: 04-13-2023 07-22-2023 Chronic Residual codes; unclassified (10 sources) Obstructive sleep apnea syndrome; Translations: [Obstructive sleep apnea (adult) (pediatric)] Onset: 04-13-2023 07-22-2023 Chronic Residual codes; unclassified (1 source) Obstructive sleep apnea (adult) (pediatric); Translations: [Obstructive sleep apnea (adult) (pediatric)] Onset: 07-22-2023 Chronic Respiratory failure; insufficiency; arrest (adult) (2 sources) Chronic hypoxemic respiratory failure; Translations: [Chronic respiratory failure with hypoxia] Onset: 04-13-2023 Resolved: 04-13-2023 04-13-2023 Chronic Respiratory failure; insufficiency; arrest (adult) (2 sources) Respiratory failure; Translations: [Respiratory failure, unspecified, unspecified whether with hypoxia or hypercapnia] 04-20-2023 Episodic Comment on above: Problem List clean-u p per request of Phys. EHR Cmte Spondylosis; intervertebral disc disorders; other back problems (14 sources) Spondylosis without myelopathy or radiculopathy, lumbar region; Translations: [Other intervertebral disc degeneration, lumbar region] Onset: 10-02-2021 Chronic Spondylosis; intervertebral disc disorders; other back problems (5 sources) Muscle spasm of back; Translations: [Intervertebral disc disorders with radiculopathy, lumbar region] Onset: 10-26-2021 04-20-2023 Episodic Comment on above: Problem List clean-u p per request of Phys. EHR Cmte Substance-related disorders (20 sources) Smoker; Translations: [Tobacco use disorder] Onset: 07-15-2022 Chronic Comment on above: 1 pack daily; Unclassified (1 source) LOW BACK PAIN, UNSPECIFIED; Translations: [LOW BACK PAIN, UNSPECIFIED] Onset: 05-13-2022 Unclassified (3 sources) CONTACT W/AND (SUSP) EXPOS COVID-19; Translations: [CONTACT W/AND (SUSP) EXPOS COVID-19] Onset: 12-14-2021 Unclassified (1 source) Other intervertebral disc degeneration, lumbar region with discogenic back pain only; Translations: [Other intervertebral disc degeneration, lumbar region with discogenic back pain only] Onset: 03-27-2024 Viral infection (1 source) COVID-19; Translations: [COVID-19] [...] 07-22-2023 Episodic Other aftercare (1 source) Other retirement (current) drug therapy; Translations: [OTH [facility] CURRENT DRUG THERAPY] Onset: 05-13-2022 Episodic Other aftercare (2 sources) Long-term current use of drug therapy; Translations: [Other retirement (current) drug therapy] Onset: 04-13-2023 04-13-2023 Episodic Other connective tissue disease (1 source) Other muscle spasm; Translations: [OTHER MUSCLE SPASM] Onset: 05-13-2022 Episodic Other lower respiratory disease (13 sources) Dyspnea; Translations: [Other respiratory abnormalities] Onset: 05-23-2023 05-23-2023 Episodic Other lower respiratory disease (4 sources) Pleurodynia; Translations: [PLEURODYNIA] Onset: 10-01-2021 Episodic Other lower respiratory disease (2 sources) Other forms of dyspnea; Translations: [Other forms of dyspnea] Onset: 05-23-2023 Episodic Other non-traumatic joint disorders (2 sources) Bilateral chronic pain of upper limbs; Translations: [Pain in right shoulder] Onset: 10-10-2023 10-10-2023 Episodic Other screening for suspected conditions (not mental disorders or infectious disease) (20 sources) Cardiovascular stress test abnormal; Translations: [Other nonspecific abnormal results of function study of cardiovascular system] Onset: 02-15-2022 Resolved: 12-01-2023 05-23-2023 Episodic Other skin disorders (2 sources) Localized swelling, mass and lump, left upper limb; Translations: [Localized swelling, mass and lump, left upper limb] Onset: 08-10-2023 Episodic Other upper respiratory disease (2 sources) Polyp of nasal cavity and/or nasal sinus; Translations: [Nasal polyp, unspecified] Onset: 04-13-2023 04-13-2023 Episodic Unclassified (1 source) CONTACT W/AND (SUSP) EXPOS COVID-19; Translations: [CONTACT W/AND (SUSP) EXPOS COVID-19] Onset: 04-12-2022 Unclassified (7 sources) Onset: 07-13-2023 Resolved: 12-01-2023 07-13-2023 Results Test Name Value Interpretation Reference Range Facility Magnetic resonance imaging r eportOrdered By: Germán Murphy on 03-27-2024 Study report [facility] [address] [place] [address] [place] [id number] MRI Report Signed Patient: Liliana Michaels JR MR#: [id number] : 1965 Acct:[id number] Age/Sex: 59 / M ADM Date: 4 Loc: MR Room: Type: [facility] CLI Attending Dr: Danielle GAYTAN Copies to: LUKAS Burns~ Ordering Provider: LUKAS Burns Date of Service: 03/27/24 MR/MR lumbar spine wo con: LUMBAR DDD ([id number]) XR/XR pre/post mri xray: LUMBAR DDD MRI lumbar spine without IV contrast. Reason for exam: Failed nerve block ablation to right upper leg. COMPARISON: Lumbar spine imaging performed earlier today. TECHNIQUE: Multisequence, multiplanar imaging of the lumbar spine was obtained without the use of IV contrast. FINDINGS: Vertebral body heights appear maintained. Diffuse disc desiccation. No bone marrow edema. Spinal cord to raise in normal position without abnormal cord signal. No paraspinal mass. Visualized retroperitoneum demonstrates no acute findings. L1-L2: 4 mm retrolisthesis. Diffuse broad-based disc bulge is present with facet joint degenerative changes causing moderate canal and bilateral neural foraminal stenosis. L2-L3: Minimal broad-based disc bulge is present with ligamentum flavum hypertrophy and facet joint degenerative changes. Findings are causing mild canal and left-sided neural foraminal stenosis. Moderate right-sided neural foraminal stenosis. L3-L4: Mild diffuse broad-based disc bulge is present with ligamentum flavum hypertrophy and facet joint degenerative changes. Findings are causing mild canal and moderate bilateral neural foraminal stenosis. Clumping of the nerve roots at this level level suggestive of arachnoiditis. L4-L5: Diffuse broad-based disc bulge is present with ligamentum flavum hypertrophy and facet joint degenerative changes. Findings are causing moderatecanal and bilateral neural foraminal stenosis. There appears to be clumping of the nerve roots at this level suggestive of arachnoiditis. L5-S1: Diffuse broad-based disc bulge is present with facet joint degenerative changes. Findings are causing mild canal and moderate bilateral neural foraminal stenosis. MR/MR lumbar spine wo con Impression: Multilevel degenerative disc disease as described above, worst at L1-L2, L3-L4 and L4-L5. Lumbar spine 2 views. Reason for exam: Failed there are block. FINDINGS: Vertebral body heights appear maintained. Multilevel moderate degenerative disc disease with endplate and facet joint degenerative changes best evaluated by MRI. SI joints also demonstrate degenerative change. IMPRESSION: Diffuse moderate degenerative disc disease best evaluated by MRI. Impression dictated by: Germán Murphy Jr., D.OAtiya03/27/2024 11:57 AM Dictation Location: [place] [address] Transcribed By: [facility] 03/27/24 1157 Dictated By: Germán Murphy Jr, DO 03/27/24 1148 Signed By: 03/27/24 1157 [facility] XR pre/post mri xrayon 03-27 XR pre/post mri xray [facility] Main [place] [address] [place] [address] MRI Report Signed Patient: Liliana Michaels JR MR#: [id number] : 1965 Acct:[id number] Age/Sex: 59 / M ADM Date: 03/27/24 Loc: Room: Type: [facility] Attending Dr: Danielle GAYTAN Copies to: LUKAS Burns Ordering Provider: LUKAS Burns Date of Service: 03/27/24 MR/MR lumbar spine wo con: LUMBAR DDD ([id number]) XR/XR pre/post mri xray: LUMBAR DDD MRI lumbar spine without IV contrast. Reason for exam: Failed nerve block ablation to right upper leg. COMPARISON: Lumbar spine imaging performed earlier today. TECHNIQUE: Multisequence, multiplanar imaging of the lumbar spine was obtained without the use of IV contrast. FINDINGS: Vertebral body heights appear maintained. Diffuse disc desiccation. No bone marrow edema. Spinal cord to raise in normal position without abnormal cord signal. No paraspinal mass. Visualized retroperitoneum demonstrates no acute findings. L1-L2: 4 mm retrolisthesis. Diffuse broad-based disc bulge is present with facet joint degenerative changes causing moderate canal and bilateral neural foraminal stenosis. L2-L3: Minimal broad-based disc bulge is present with ligamentum flavum hypertrophy and facet joint degenerative changes. Findings are causing mild canal and left-sided neural foraminal stenosis. Moderate right-sided neural foraminal stenosis. L3-L4: Mild diffuse broad-based disc bulge is present with ligamentum flavum hypertrophy and facet joint degenerative changes. Findings are causing mild canal and moderate bilateral neural foraminal stenosis. Clumping of the nerve roots at this level level suggestive of arachnoiditis. L4-L5: Diffuse broad-based disc bulge is present with ligamentum flavum hypertrophy and facet joint degenerative changes. Findings are causing moderate canal and bilateral neural foraminal stenosis. There appears to be clumping of the nerve roots at this level suggestive of arachnoiditis. L5-S1: Diffuse broad-based disc bulge is present with facet joint degenerative changes. Findings are causing mild canal and moderate bilateral neural foraminal stenosis. MR/MR lumbar spine wo con Impression: Multilevel degenerative disc disease as described above, worst at L1-L2, L3-L4 and L4- L5. Lumbar spine 2 views. Reason for exam: Failed there are block. FINDINGS: Vertebral body heights appear maintained. Multilevel moderate degenerative disc disease with endplate and facet joint degenerative changes best evaluated by MRI. SI joints also demonstrate degenerative change. IMPRESSION: Diffuse moderate degenerative disc disease best evaluated by MRI. Impression dictated by: Germán Murphy Jr., D.O.03/27/2024 11:57 AM Dictation Location: [place] [address] Transcribed By: [facility] 03/27/24 1157 Dictated By: Germán Murphy Jr, DO 03/27/24 1148 Signed By: 03/27/24 1157 Normal [facility] XR chest 2V*on 03-16-2024 XR chest 2V* [facility] [place] [address] [place] [address] XRay Report Signed Patient: Liliana Michaels JR MR#: [id number] : 1965 Acct:[id number] Age/Sex: 59 / M ADM Date: 03/16/24 Loc: [facility] Room: Type: [facility] CLI Attending Dr: Danielle GAYTAN Copies to: LUKAS Burns Ordering Provider: LUKAS Burns Date of Service: 03/16/24 XR/XR chest 2V*: MRI CLEARANCE Plain film chest 2 view HISTORY: Pacemaker check. COMPARISON: 07/06/2019 FINDINGS: SUPPORT DEVICES: None POSTSURGICAL CHANGES: Cardiac device intact. HEART: Within normal limits PULMONARY STEPHANIE: Within normal limits MEDIASTINUM: Unremarkable LUNGS AND PLEURA: No acute lung process, pleural effusion or pneumothorax identified. BONY STRUCTURES: Thoracic spondylosis. ADDITIONAL FINDINGS None XR/XR chest 2V* IMPRESSION: No acute process. Intact cardiac device Impression dictated by: Elia Rodrigez M.D.03/16/2024 8:54 AM Dictation Location: [facility] Transcribed By: [facility] 03/16/24853 Dictated By: Elia Rodrigez DO 03/16/24 0849 Signed By: 03/16/2454 [facility] Cardiac Device Check - Remot neeta 02-14-2024 [facility] Work Phone: Radiology Study observation (narrative) [facility] Work Phone: XR CHEST 2 VIEWSon XR CHEST 2 VIEWS Interpreted By: Sancho Gross, STUDY: XR CHEST 2 VIEWS; 11/09/2023 9:46 am INDICATION: Signs/Symptoms:Pacem marilyn. COMPARISON: 08/05/2023 ACCESSION NUMBER(S): [id number] ORDERING CLINICIAN: ANA M KUMARI FINDINGS: Left-sided pacemaker in place. CARDIOMEDIASTINAL SILHOUETTE: Cardiomediastinal silhouette is normal in size and configuration. LUNGS: Lungs are clear. ABDOMEN: No remarkable upper abdominal findings. BONES: No acute osseous changes. IMPRESSION: 1. No evidence of acute cardiopulmonary process. MACRO: None Signed by: Sancho Gross 11/10/2023 8:35 AM Dictation workstation: [id number] [facility] Comment on above: Order Comment: Repor t to [facility] registration on 11/09/2023 at 8:30 AM for chest x-ray and device check prior to appointment with Dr. Son at 10 AM Cardiac Device Check - Remot neeta 09-26-2023 [facility] Work Phone: Radiology Study observation (narrative) [facility] Work Phone: US.doppler Upper extremity v hazel - tiff 08-10-2023 Exam negative for acute deep venous thrombosis in the left upper extremity MACRO: None Signed by: Simone Ramos 08/10/2023 3:07 PM Dictation workstation: [id number] MMODAL Interpreted By: Simone Ramos, STUDY: [facility] US UPPER EXTREMITY VENOUS DUPLEX LEFT; 08/10/2023 2:47 pm INDICATION: Signs/Symptoms: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 COMPARISON: Portable chest 05 August 2023 ACCESSION NUMBER(S): [id number] ORDERING CLINICIAN: NAIMA WRIGHT TECHNIQUE: Vascular ultrasound [...] - 08/10/2023 Interpreted By: Simone Ramos, STUDY: [facility] US UPPER EXTREMITY VENOUS DUPLEX LEFT; 08/10/2023 2:47 pm INDICATION: Signs/Symptoms: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 COMPARISON: Portable chest 05 August 2023 ACCESSION NUMBER(S): [id number] ORDERING CLINICIAN: NAIMA WRIGHT TECHNIQUE: Vascular ultrasound [...] Simone Ramos 08/10/2023 3:07 PM Dictation workstation: [id number] [facility] Work Phone: Radiology Study observation (narrative) [facility] Work Phone: US.doppler Upper extremity v ein - leftOrdered By: Simone Ramos on 08-10-2023 [facility] Work Phone: VAS US UPPER EXTREMITY VENO US DUPLEX LEFTon 08-10-2023 VAS US UPPER EXTREMITY VENOUS DUPLEX LEFT Interpreted By: Simone Ramos, STUDY: VAS US UPPER EXTREMITY VENOUS DUPLEX LEFT; 08/10/2023 2:47 pm INDICATION: Signs/Symptoms: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 COMPARISON: Portable chest 05 August 2023 ACCESSION NUMBER(S): [id number] ORDERING CLINICIAN: NAIMA WRIGHT TECHNIQUE: Vascular ultrasound [...] Simone Ramos 08/10/2023 3:07 PM Dictation workstation: [id number] [facility] Basic metabolic 2000 panelon 08-05-2023 Anion gap [Moles/Vol] 12 mmol/L 10 - 2 0 mmol/L [facility] Calcium [Mass/Vol] 9.6 mg/dL 8.6 - 10. 3 mg/dL [facility] Chloride [Moles/Vol] 102 mmol/L 98 - 10 7 mmol/L [facility] CO2 [Moles/Vol] 29 mmol/L 21 - 32 mmol/L [facility] Creatinine [Mass/Vol] 1.12 mg/dL 0.50 - 1.30 mg/dL [facility] GFR/1.73 sq M.predicted among non-blacks MDRD (S/P/Bld) [Vol rate/Area] 76 mL/min/{1.73_m2} - PINF [facility] Comment on above: Calculations of yang mated GFR are performed using the 2020 CKD-EPI Study Refit equation without the race variable for the IDMS-Traceable creatinine methods. https://jasn.asnjournals.org/content/early/ASN.2020 858966 Glucose [Mass/Vol] 95 mg/dL 74 - 99 mg/dL [facility] Interpretation and review of laboratory results Normal [facility] Potassium [Moles/Vol] 4.0 mmol/L 3.5 - 5.3 mmol/L [facility] Sodium [Moles/Vol] 139 mmol/L 136 - 145 mmol/L [facility] Urea nitrogen [Mass/Vol] 17 mg/dL 6 - 23 mg/dL [facility] Anion gap [Moles/Vol] 12 mmol/L Normal 10-20 [facility] Comment on above: Performed By: #### 2 6581-2 #### JAIMEE QURESHI ([id number]) [facility] ([facility]) [address] [place] [address]37 Calcium [Mass/Vol] 9.6 mg/dL Normal 8.6-10.3 [facility] Comment on above: Performed By: #### 2 4321-2 #### JAIMEE QURESHI ([id number]) [facility] ([facility]) [address] [place] [address] Chloride [Moles/Vol] 102 mmol/L Normal 98-107 [facility] Comment on above: Performed By: #### 2 4321-2 #### JAIMEE QURESHI ([id number]) [facility]) [address] [place] [address] 99474 CO2 [Moles/Vol] 29 mmol/L Normal 21-32 [facility] Comment on above: Performed By: #### 2 4321-2 #### GRISELDAIBDEION JAIDEN MACKENZIE ([id number]) [facility] ([facility]) [address] [place] [address] 92636 Creatinine [Mass/Vol] 1.12 mg/dL Normal 0.50-1.30 [facility] Comment on above: Performed By: #### 2 4321-2 #### GRISELDAIBDEION JAIDEN MACKENZIE ([id number]) [facility] ([facility]) [address] [place] [address] 08358 Glomerular filtration rate/1.73 sq M.predicted 76 mL/min/1.73m*2 Normal >60 [facility] Comment on above: Result Comment: Calc ulations of estimated GFR are performed using the 2020 CKD-EPI Study Refit equation without the race variable for the IDMS-Traceable creatinine methods. https://jasn.asnjournals.org/content/early/ASN.2020 979808 Performed By: #### 2 4321-2 #### GRISELDAIBDEION JAIDEN MACKENZIE ([id number]) [facility] ([facility]) [address] [place] [address] 94039 Glucose [Mass/Vol] 95 mg/dL Normal 74-99 [facility] Comment on above: Performed By: #### 2 4321-2 #### GRISELDAIBDEION WATTS RIO MACKENZIE ([id number]) [facility]) [address] [place] [address] 88640 Potassium [Moles/Vol] 4.0 mmol/L Normal 3.5-5.3 [facility] Comment on above: Performed By: #### 2 4321-2 #### GRISELDAIBELIBRITTNEY AJIDEN MACKENZIE ([id number]) [facility]) [address] [place] [address] 12439 Sodium [Moles/Vol] 139 mmol/L Normal 136-145 [facility] Comment on above: Performed By: #### 2 4321-2 #### GRISELDAIBELIBRITTNEY JAIDEN MACKENZIE ([id number]) [facility]) [address] [place] [address] Urea nitrogen [Mass/Vol] 17 mg/dL Normal 6-23 [facility] Comment on above: Performed By: #### 2 4321-2 #### JAIMEE QURESHI ([id number]) [facility] [address] [place] [address] 01136 CBC panel Auto (Bld)on 08-04 Erythrocyte distribution width (RBC) [Ratio] 13.0 % 11.5 - 14.5 % [facility] Hematocrit (Bld) [Volume fraction] 46.9 % 41.0 - 52.0 % [facility] Hemoglobin (Bld) [Mass/Vol] 16.1 g/dL 13.5 - 17.5 g/dL [facility] Interpretation and review of laboratory results Normal [facility] MCH (RBC) [Entitic mass] 31.5 pg 26.0 - 34.0 pg [facility] MCHC (RBC) [Mass/Vol] 34.3 g/dL 32.0 - 36.0 g/dL [facility] MCV (RBC) [Entitic vol] 92 fL 80 - 100 fL [facility] Nucleated RBC/100 WBC (Bld) [Ratio] 0.0 % [facility] Platelets (Bld) [#/Vol] 279 10*3/uL [facility] RBC (Bld) [#/Vol] 5.11 10*6/uL [facility] WBC (Bld) [#/Vol] 8.9 10*3/uL [facility] Erythrocyte distribution width (RBC) [Ratio] 13.0 % Normal 11.5-14.5 [facility] Comment on above: Performed By: #### 5 8410-2 #### JAIMEE QURESHI ([id number]) [facility]) [address] [place] [address] 47806 Hematocrit (Bld) [Volume fraction] 46.9 % Normal 41.0-52.0 [facility] Comment on above: Performed By: #### 5 8410-2 #### JAIMEE QURESHI ([id number]) [facility]) [address] [place] [address] 83625 Hemoglobin (Bld) [Mass/Vol] 16.1 g/dL Normal 13.5-17.5 [facility] Comment on above: Performed By: #### 5 8410-2 #### JAIMEE QURESHI ([id number]) [facility]) [address] [place] [address] 52285 MCH (RBC) [Entitic mass] 31.5 pg Normal 26.0-34.0 [facility] Comment on above: Performed By: #### 5 8410-2 #### JAIMEE QURESHI ([id number]) [facility]) [address] [place] [address] 18614 MCHC (RBC) [Mass/Vol] 34.3 g/dL Normal 32.0-36.0 [facility] Comment on above: Performed By: #### 5 8410-2 #### JAIMEE QURESHI ([id number]) [facility]) [address] [place] [address] 75909 MCV (RBC) [Entitic vol] 92 fL Normal 80-[address] [facility] Comment on above: Performed By: #### 5 8410-2 #### JAIMEE QURESHI ([id number]) [facility]) [address] [place] [address] 48445 Nucleated RBC/100 WBC (Bld) [Ratio] 0.0 /100 WBCs Normal 0.0-0.0 [facility] Comment on above: Performed By: #### 5 8410-2 #### JAIMEE QURESHI ([id number]) [facility] [address] [place] [address] 26835 Platelets (Bld) [#/Vol] 279 x10*3/uL Normal 150-450 [facility] Comment on above: Performed By: #### 5 8410-2 #### JAIMEE QURESHI ([id number]) [facility] [address] [place] [address] 78679 RBC (Bld) [#/Vol] 5.11 x10*6/uL Normal 4.50-5.90 [facility] Comment on above: Performed By: #### 5 8410-2 #### JAIMEE WATTS RIO MACKENZIE ([id number]) [facility]) [address] [place] [address] 77704 WBC (Bld) [#/Vol] 8.9 x10*3/uL Normal 4.4-11.3 [facility] Comment on above: Performed By: #### 5 8410-2 #### JAIMEE WATTS RIO MACKENZIE ([id number]) [facility]) [address] [place], [place] [address] Electrophysiology studyon [facility] Work Phone: PT and aPTT panel Coag (PPP) on 08-05-2023 aPTT Coag (PPP) [Time] [address] [facility] INR Coag (PPP) [Relative time] 1.0 {INR} 0.9 - 1.1 [facility] Interpretation and review of laboratory results Normal [facility] PT Coag (PPP) [Time] 11.0 s [facility] The APTT is no longer used for monitoring Unfractionated Heparin Therapy. For monitoring Heparin Therapy, use the Heparin Assay. [facility] aPTT Coag (PPP) [Time] 34 s Normal 27-38 [facility] Comment on above: Order Comment: The A PTT is no longer used for monitoring Unfractionated Heparin Therapy. For monitoring Heparin Therapy, use the Heparin Assay. Performed By: #### 3 4529-8 #### JAIMEE WATTS RIO MACKENZIE ([id number]) [facility]) [address] [place] [address] 14815 INR Coag (PPP) [Relative time] 1.0 Normal 0.9-1.1 [facility] Comment on above: Order Comment: The A PTT is no longer used for monitoring Unfractionated Heparin Therapy. For monitoring Heparin Therapy, use the Heparin Assay. Performed By: #### 3 4529-8 #### JAIMEE WATTS RIO MACKENZIE ([id number]) [facility] ([facility]) [address] [place] [address] 03712 PT Coag (PPP) [Time] 11.0 s Normal 9.8-12.8 [facility] Comment on above: Order Comment: The A PTT is no longer used for monitoring Unfractionated Heparin Therapy. For monitoring Heparin Therapy, use the Heparin Assay. Performed By: #### 3 4529-8 #### JAIMEE [facility] ([id number]) [facility] ([facility]) [address] [place] [address]04 TRANSTHORACIC ECHO (TTE) COM PLETEon 08-05-2023 TRANSTHORACIC ECHO (TTE) COMPLETE [address] [address] TRANSTHORACIC ECHOCARDIOGRAM REPORT Patient Name: LILIANA Cme BRANDO Reading Physician: [id number] Batsheva Morris MD, [facility] Study Date: 08/05/2023 Ordering Provider: [id number] ANA M ANGEL MRN/PID: [id number] Fellow: Nurse: Date of /Age: 10 1965 Consumer Education Specialist: Eli Pisano [facility] Gender: M Additional Staff: Height: 162.56 cm Admit Date: Weight: 90.72 kg Admission Status: Outpatient BSA / BMI: 1.96 m2 / 34.33 Department Location: [place] [address] Echo Lab Blood Pressure: 128 /73 mmHg Study Type: TRANSTHORACIC ECHO (TTE) COMPLETE Diagnosis/ICD: Bradycardia, unspecified-R00.1 Indication: Abnormal EKG, Pre-EP CPT Codes: Echo Complete w Full Doppler-55500 Study Detail: The following Echo studies were [...] LA Area A2C: 18.9 cm2 LA Major Waelder A4C: 5.8 cm LA Major Waelder A2C: 5.5 cm LA Volume Index: 27.0 [...] 1.3 m/s (0.6-0.9m/s) PV Max P.6 mmHg [id number] Batsheva Morris MD, FACC Electronically signed on 08/05/2023 at 2:30:14 PM Final [facility] US Heart TransthoracicOrdere d By: Batsheva Morris on 08-05-2023 Aortic Valve Area by Continuity of Peak Velocity 2.42 cm2 [facility] Work Phone: Aortic Valve Area by Continuity of VTI 2.62 cm2 [facility] Work Phone: [phone] AV mn grad 4.0 mmHg [facility] Work Phone: [phone] AV pk grad 8.2 mmHg [facility] Work Phone: [phone] AV pk abiodun 1.43 m/s [facility] Work Phone: LA vol index A/L 29.3 ml/m2 [facility] Work Phone: [phone] LV A4C EF 62.4 [facility] Work Phone: [phone] LV biplane EF 60 % [facility] Work Phone: [phone] LVIDd 5.28 cm [facility] Work Phone: LVOT diam 2.00 cm [facility] Work Phone: [phone] MV avg E/e' ratio 7.78 [facility] Work Phone: [phone] MV E/A ratio 0.88 [facility] Work Phone: [phone] RV free wall pk S' 15.40 cm/s [facility] Work Phone: [phone] RVSP 23.4 mmHg [facility] Work Phone: [phone] Tricuspid annular plane systolic excursion 3.6 cm [facility] Work Phone: [phone] [facility] Work Phone: US Heart Transthoracicon [place] [address] TRANSTHORACIC ECHOCARDIOGRAM REPORT Patient Name: LILIANA MICHAELS Reading Physician: [id number] Batsheva Morris MD, [facility] Study Date: 08/05/2023 Ordering Provider: [id number] ANA M Dodge ALEKRADHAALICIA MRN/PID: [id number] Fellow: Nurse: Date of /Age: 10 1965 Consumer Education Specialist: Eli Pisano RDGRACY Gender: M Additional Staff: Height: 162.56 cm Admit Date: Weight: 90.72 kg Admission Status: Outpatient BSA / BMI: 1.96 m2 / 34.33 Department Location: [place] [address] Echo Lab Blood Pressure: 128 /73 mmHg Study Type: TRANSTHORACIC ECHO (TTE) COMPLETE Diagnosis/ICD: Bradycardia, unspecified-R00.1 Indication: Abnormal EKG, Pre-EP CPT Codes: Echo Complete w Full Doppler-27270 Study Detail: The following Echo studies were [...] LA Area A2C: 18.9 cm2 LA Major Waelder A4C: 5.8 cm LA Major Waelder A2C: 5.5 cm LA Volume Index: 27.0 [...] not included)... Batsheva Alexander MD - 08/05/2023 [place] [address] TRANSTHORACIC ECHOCARDIOGRAM REPORT Patient Name: LILIANA MICHAELS Reading Physician: [id number] Batsheva Morris MD, [facility] Study Date: 08/05/2023 Ordering Provider: [id number] ANA M ANGEL MRN/PID: [id number] Fellow: Nurse: Date of /Age: 10 1965 Consumer Education Specialist: Eli Pisano RDCS Gender: M Additional Staff: Height: 162.56 cm Admit Date: Weight: 90.72 kg Admission Status: Outpatient BSA / BMI: 1.96 m2 / 34.33 Department Location: [place] [address] Echo Lab Blood Pressure: 128 /73 mmHg Study Type: TRANSTHORACIC ECHO (TTE) COMPLETE Diagnosis/ICD: Bradycardia, unspecified-R00.1 Indication: Abnormal EKG, Pre-EP CPT Codes: Echo Complete w Full Doppler-73656 Study Detail: The following Echo studies were [...] LA Area A2C: 18.9 cm2 LA Major Waelder A4C: 5.8 cm LA Major Waelder A2C: 5.5 cm LA Volume Index: 27.0 [...] 1.3 m/s (0.6-0.9m/s) PV Max P.6 mmHg [id number] Batsheva Morris MD, [facility] Electronically signed on 08/05/2023 at 2:30:14 PM Final [facility] Work Phone: XR CHEST 1 VIEWon 08-05-2023 XR CHEST 1 VIEW Interpreted By: Salvatore Clark, STUDY: XR CHEST 1 VIEW INDICATION: Signs/Symptoms:post implant. COMPARISON: None ACCESSION NUMBER(S): [id number] ORDERING CLINICIAN: ANA M KUMARI FINDINGS: No consolidation, effusion, edema, or pneumothorax. Pacemaker placed without pneumothorax. Position satisfactory. IMPRESSION: Status post pacemaker placement. Signed by: Salvatore Clark 08/05/2023 6:10 PM Dictation workstation: [id number] [facility] Comment on above: Order Comment: Vahe heard. XR Chest Single viewon 08-04 Status post pacemaker placement. Signed by: Salvatore Clark 08/05/2023 6:10 PM Dictation workstation: [id number] MMODAL Interpreted By: Salvatore Clark, STUDY: XR CHEST 1 VIEW INDICATION: Signs/Symptoms:post implant. COMPARISON: None ACCESSION NUMBER(S): [id number] ORDERING CLINICIAN: ANA M KUMARI FINDINGS: No consolidation, effusion, edema, or pneumothorax. Pacemaker placed without pneumothorax. Position satisfactory. [facility] MMODAL Salvatore Clark MD - 08/05/2023 Interpreted By: Salvatore Clark, STUDY: XR CHEST 1 VIEW INDICATION: Signs/Symptoms:post implant. COMPARISON: None ACCESSION NUMBER(S): [id number] ORDERING CLINICIAN: ANA M KUMARI FINDINGS: No consolidation, effusion, edema, or pneumothorax. Pacemaker placed without pneumothorax. Position satisfactory. IMPRESSION: Status post pacemaker placement. Signed by: Salvatore Clark 08/05/2023 6:10 PM Dictation workstation: [id number] [facility] Work Phone: Radiology Study observation (narrative) [facility] Work Phone: XR Chest Single viewOrdered By: Salvatore Clark on 08-05-2023 [facility] Work Phone: ECG 12 lead (Clinic Performe d)on 07-22-2023 EKG shows marked sinus bradycardia rate of 41 bpm QRS ration 100 ms QT corrected he had a 91 ms. Rhythm strip shows the same pattern. [facility] Work Phone: CT LUNG CANCER SCREENINGon 0 [...] BATSHEVA ALVARADO Date: 2022-07-15 12:10 Normal [facility] Office Visit (Cardiology)on 07-14-2022 Follow-up visit [...] we can help. You may also call [phone]-THGGNOW for free resources and assistance.; Status:Complete - [...] ischemic evaluation. He underwent cardiac catheterization in [place] which showed no significant obstructive disease 3. [...] BY MOUTH FOUR TIMES A DAY NEEDED Xmzptk7i at bedtime Singulair 10 MG Oral TabletTAKE [...] Recorded: 14Jul2022 10:57AM Heart Rate34, L Radial Kvtmixxj643, LUE, Sitting Uwzucdfgy61, LUE, Sitting Height5 ft 4 in Bwffvl962 lb BMI Wikmqojjvk47.96 kg/m2 BSA Calculated1.92 Tobacco Usea) Yes Patient encouraged to st (more content not included)... Normal [employer] Tobacco Screening.on 023 Adult depression screening assessment No [facility] 600 DO Work Phone: Fall risk assessment a) No falls within the last year [facility] MargaretMely 600 DO Work Phone: Tobacco use status CPHS a) Yes M [facility] Ira 600 DO Work Phone: Tobacco Screening. Yes [facility] MargaretMely 600 DO Work Phone: CT ABD/PELV W [...] FLEX JACOBS Date: 2022-06-11 10:06 Normal [facility] CBC AUTO DIFFon 05-07-2022 BASO # 0.1 103/ul Normal 0.0-0.1 [facility] Comment on above: Performed By: #### C BC #### [facility] [address] [address] [address] Britt Mendoza Basophils/100 WBC (Bld) 1.6 % Normal 0.2-2.0 [facility] Comment on above: Performed By: #### C BC #### [facility] [address] [address] [address] Britt Mendoza EO # 0.2 103/ul Normal 0.0-0.7 [facility] Comment on above: Performed By: #### C BC #### [facility] [address] [place] [address] Dr. Britt Mendoza Eosinophils/100 WBC (Bld) 3.0 % Normal 0.9-7.0 [facility] Comment on above: Performed By: #### C BC #### [facility] [address] [place] [address] Dr. Britt Mendoza Erythrocyte distribution width (RBC) [Ratio] 12.4 % Normal 11.0-15.0 [facility] Comment on above: Performed By: #### C BC #### [facility] [address] [place] [address] Dr. Britt Mendoza Hematocrit (Bld) [Volume fraction] 43.2 % Normal 42.0-54.0 [facility] Comment on above: Performed By: #### C BC #### [facility] [address] [place] [address] Dr. Britt Mendoza Hemoglobin (Bld) [Mass/Vol] 14.7 g/dL Normal 14.0-18.0 [facility] Comment on above: Performed By: #### C BC #### [facility] [address] [place] [address] Dr. Britt Mendoza IG # 0.11 10e3/ul Critically high 0.00-0.03 [facility] Comment on above: Performed By: #### C BC #### [facility] [address] [place] [address] Dr. Britt Mendoza IG % 1.4 % Critically high 0.0-0.5 [facility] Comment on above: Performed By: #### C BC #### [facility] [address] [place] [address] Dr. Britt Mendoza LYMPH # 1.7 103/ul Normal 1.2-3.8 [facility] Comment on above: Performed By: #### C BC #### [facility] [address] [place] [address] Dr. Britt Mendoza Lymphocytes/100 WBC (Bld) 21.6 % Normal 20.5-60.0 [facility] Comment on above: Performed By: #### C BC #### [facility] [address] [place] [address] Dr. Britt Mendoza MANUAL DIFF REQ NO Normal [facility] Comment on above: Performed By: #### C BC #### [facility] [address] [place] [address] Dr. Britt Mendoza MCH (RBC) [Entitic mass] 31.2 pg Normal 25.9-34.0 [facility] Comment on above: Performed By: #### C BC #### [facility] [address] [place] [address] Dr. Britt Mendoza MCHC (RBC) [Mass/Vol] 34.0 g/dL Normal 29.9-35.2 [facility] Comment on above: Performed By: #### C BC #### [facility] [address] [place] [address] Dr. Britt Mendoza MCV (RBC) [Entitic vol] 91.7 fL Normal 80.0-94.0 [facility] Comment on above: Performed By: #### C BC #### [facility] [address] [place] [address] Dr. Britt Mendoza MONO # 0.5 103/ul Normal 0.3-0.8 [facility] Comment on above: Performed By: #### C BC #### [facility] [address] [place] [address] Dr. Britt Mendoza Monocytes/100 WBC (Bld) 6.8 % Normal 1.7-12.0 [facility] Comment on above: Performed By: #### C BC #### [facility] [address] [place] [address] Dr. Britt Mendoza NEUT # 5.0 103/ul Normal 1.4-6.5 [facility] Comment on above: Performed By: #### C BC #### [facility] [address] [place] [address] Dr. Britt Mendoza Neutrophils/100 WBC (Bld) 65.6 % Normal 43.0-75.0 [facility] Comment on above: Performed By: #### C BC #### [facility] [address] [place] [address] Dr. Britt Mendoza Platelet mean volume (Bld) [Entitic vol] 9.7 fL Normal 9.5-13.5 [facility] Comment on above: Performed By: #### C BC #### [facility] [address] [place] [address] Dr. Britt Mendoza PLT 244 103/ul Normal 150-450 [facility] Comment on above: Performed By: #### C BC #### [facility] [address] [place] [address] Dr. Britt Mendoza RBC 4.71 106/ul Normal 4.70-6.10 [facility] Comment on above: Performed By: #### C BC #### [facility] [address] [place] [address] Dr. Britt Mendoza WBC 7.6 103/ul Normal 4.0-11.0 [facility] Comment on above: Performed By: #### C BC #### [facility] [address] [place] [address] Dr. Britt Mendoza GLYCOHEMOGLOBIN A1Con 2021 ADA RECOMMENDATION SEE BELOW Normal [facility] Comment on above: Result Comment: ADA RECOMMENDED LIMIT 4.0 - 6.0 ADA THERAPEUTIC TARGET < 7.0 ACTION SUGGESTED > 7.0 Performed By: #### A 1C ####[facility] [address] [place], [place] [address]Dr. Britt Mendoza Glucose [Mass/Vol] 117 mg/dL Normal [facility] Comment on above: Performed By: #### A 1C ####[facility] [address] [id number]. Britt Mendoza HbA1c (Bld) [Mass fraction] 5.7 % Normal 4.5-6.2 [facility] Comment on above: Performed By: #### A 1C ####[facility] [address] [id number]. Britt Mendoza LIPID PROFILEon 05-07-2022 CHOL-HDL RATIO NORM SEE BELOW Normal [facility] Comment on above: Result Comment: 3.3 - 4.4 LOW RISK 4.4 - 7.1 AVERAGE RISK 7.1 - 11.0 MODERATE RISK >11.0 HIGH RISK Performed By: #### B MP, LIVER, LIPID, TSH ####[facility] [address] [address]Dr. Britt Mendoza Cholesterol [Mass/Vol] 235 mg/dL Critically high <=200 [facility] Comment on above: Performed By: #### B MP, LIVER, LIPID, TSH ####[facility] [address] [address]Dr. Britt Mendoza Cholesterol in HDL [Mass/Vol] 40 mg/dL Normal 40-60 [facility] Comment on above: Performed By: #### B MP, LIVER, LIPID, TSH ####[facility] [address] [address]Dr. Britt Mendoza Cholesterol in LDL [Mass/Vol] 156.8 mg/dL Normal [facility] Comment on above: Performed By: #### B MP, LIVER, LIPID, TSH ####[facility] [address] [id number]. Britt Mendoza Cholesterol.total/Viola sterol in HDL [Mass ratio] 5.9 {ratio} Normal [facility] Comment on above: Performed By: #### B MP, LIVER, LIPID, TSH ####[facility] [address] [id number]. Britt Mendoza HDL NORMAL > or = 60 mg/dl - LOW CARDIOVASCULAR RISK <40 mg/dl - HIGH CARDIOVASCULAR RISK Normal [facility] Comment on above: Performed By: #### B MP, LIVER, LIPID, TSH ####[facility] [address] [id number]. Britt Mendoza LDL CALC NORMAL SEE BELOW Normal [facility] Comment on above: Result Comment: <100 mg/dl OPTIMAL 100 - 129 mg/dl NEAR OR ABOVE OPTIMAL 130 - 159 mg/dl BORDERLINE HIGH 160 - 189 mg/dl HIGH >190 mg/dl VERY HIGH Performed By: #### B MP, LIVER, LIPID, TSH ####[facility] [address] [address]Dr. Britt Mendoza Triglyceride [Mass/Vol] 191 mg/dL Critically high <=150 [facility] Comment on above: Performed By: #### B MP, LIVER, LIPID, TSH ####[facility] [address] [address]Dr. Britt Mendoza VLDL CALC 38.2 mg/dL Normal [facility] Comment on above: Performed By: #### B MP, LIVER, LIPID, TSH ####[facility] [address] [address]Dr. Britt Mendoza LIVER PROFILEon 05-07-2022 Albumin [Mass/Vol] 3.6 g/dL Normal 3.4-5.0 [facility] Comment on above: Performed By: #### B MP, LIVER, LIPID, TSH ####[facility] [address] [id number]. Britt Mendoza Albumin/Globulin [Mass ratio] 1.1 {ratio} Normal [facility] Comment on above: Performed By: #### B MP, LIVER, LIPID, TSH ####[facility] [address] [id number]. Britt Mendoza ALP [Catalytic activity/Vol] 84 U/L Normal 46-116 [facility] Comment on above: Performed By: #### B MP, LIVER, LIPID, TSH ####[facility] [address] [id number]. Britt Mendoza ALT [Catalytic activity/Vol] 34 U/L Normal 16-63 [facility] Comment on above: Performed By: #### B MP, LIVER, LIPID, TSH ####[facility] [address] [address]Dr. Britt Mendoza AST [Catalytic activity/Vol] 21 U/L Normal 15-37 [facility] Comment on above: Performed By: #### B MP, LIVER, LIPID, TSH ####[facility] [address] [address]Dr. Britt Mendoza BILI, CONJUGATED 0.1 mg/dL Normal 0.0-0.2 [facility] Comment on above: Performed By: #### B MP, LIVER, LIPID, TSH ####[facility] [address] [address]Dr. Britt Mendoza Bilirubin [Mass/Vol] 0.4 mg/dL Normal 0.2-1.0 [facility] Comment on above: Performed By: #### B MP, LIVER, LIPID, TSH ####[facility] [address] [address]Dr. Britt Mendoza Globulin (S) [Mass/Vol] 3.4 g/dL Normal [facility] Comment on above: Performed By: #### B MP, LIVER, LIPID, TSH ####[facility] [address] [address]Dr. Britt Mendoza Protein [Mass/Vol] 7.0 g/dL Normal 6.4-8.2 [facility] Comment on above: Performed By: #### B MP, LIVER, LIPID, TSH ####[facility] [address] [address]Dr. Britt Mendoza PROF CHEM 8 (BAS METB)on Anion gap [Moles/Vol] 13.8 mmol/L Normal [facility] [place] Comment on above: Result Comment: Prev iously reported as: -2.3 On 05/07/2022 13:50 By DM9 Performed By: #### B MP, LIVER, LIPID, TSH #### [facility] [address] [address] [address] Britt Mendoza Calcium [Mass/Vol] 9.2 mg/dL Normal 8.5-10.1 [facility] Comment on above: Performed By: #### B MP, LIVER, LIPID, TSH #### [facility] [address] [address] [address] Britt Mendoza Chloride [Moles/Vol] 99 mmol/L Normal 98-107 [facility] Comment on above: Result Comment: Prev iously reported as: 106 On 05/07/2022 13:50 By DM9 Performed By: #### B MP, LIVER, LIPID, TSH #### [facility] [address] [place] [address] Dr. Britt Mendoza CO2 [Moles/Vol] 27.3 mmol/L Normal 21.0-32.0 [facility] Comment on above: Result Comment: Prev iously reported as: 29.2 On 05/07/2022 13:50 By DM9 Performed By: #### B MP, LIVER, LIPID, TSH #### [facility] [address] [place] [address] Dr. Britt Mendoza Creatinine [Mass/Vol] 1.12 mg/dL Normal 0.70-1.30 [facility] Comment on above: Performed By: #### B MP, LIVER, LIPID, TSH #### [facility] [address] [place] [address] Dr. Britt Mendoza EGFR-AF ALGERIAN >60 Normal >=60 [facility] Comment on above: Performed By: #### B MP, LIVER, LIPID, TSH #### [facility] [address] [place] [address] Dr. Britt Mendoza EGFR-NON AF ALGERIAN >60 Normal >=60 [facility] Comment on above: Performed By: #### B MP, LIVER, LIPID, TSH #### [facility] [address] [place] [address] Dr. Britt Mendoza Glucose [Mass/Vol] 108 mg/dL Critically high 74-106 [facility] Comment on above: Performed By: #### B MP, LIVER, LIPID, TSH #### [facility] [address] [address] [address] Britt Mendoza Potassium [Moles/Vol] 4.1 mmol/L Normal 3.5-5.1 [facility] Comment on above: Result Comment: Prev iously reported as: 3.9 On 05/07/2022 13:50 By DM9 Performed By: #### B MP, LIVER, LIPID, TSH #### [facility] [address] [address] [address] Britt Mendoza Sodium [Moles/Vol] 136 mmol/L Normal 136-[address] [facility] Comment on above: Result Comment: Prev iously reported as: 129 On 05/07/2022 13:50 By DM9 Performed By: #### B MP, LIVER, LIPID, TSH #### [facility] [address] [address] [address] Britt Mendoza Urea nitrogen [Mass/Vol] 26.0 mg/dL Critically high 7.0-18.0 [facility] Comment on above: Performed By: #### B MP, LIVER, LIPID, TSH #### [facility] [address] [address] [address] Britt Mendoza Urea nitrogen/Creatinine [Mass ratio] 23.2 mg/mg Normal [facility] Comment on above: Performed By: #### B MP, LIVER, LIPID, TSH #### [facility] [address] [address] [address] Britt Mendoza TSHon 05-07-2022 TSH 0.828 uIU/mL Normal 0.358-3.740 [facility] Comment on above: Performed By: #### B MP, LIVER, LIPID, TSH ####[facility] [address] [address]Dr. Britt Mendoza VITAMIN D 25 OHon 05-07-2022 VIT D 25-OH 45.6 ng/mL Normal [facility] Comment on above: Performed By: #### V ITAD, PSASC #### [facility] [address] [address] [address] Britt Mendoza VIT D RANGES SEE BELOW Normal [facility] Comment on above: Result Comment: <20 ng/mL Vit D deficient 20 - <30 ng/mL Vit D insufficient 30 - 100 ng/mL Vit D sufficient >100 ng/mL Potential Toxicity Performed By: #### V VAISHNAVI CARDONA #### [facility] [address] [place], [place] [address] Dr. Britt Mendoza Covid-19 PCR (CVDTB)on SARS-CoV-2 (COVID-19) RNA KATT+probe Ql (Unsp spec) Detected Critically abnormal NOT DETECTED [facility] Comment on above: Result Comment: This test is not yet approved or cleared by the [place] FDA. When there are no FDA-approved or cleared tests available, and other criteria are met, FDA can make tests available under an emergency access mechanism called an Emergency Use Authorization (EUA). The EUA for this test is supported by the Business Operations Consultant of Health and Human Service's declaration that [...] longer be used). Performed By: #### C [facility] ####[facility] [address] [place], [place] [address]Dr. Britt Mendoza Cardiac Stress Teston 2021 Cardiac Stress Test [address], [address] [place] [address] Exercise Stress Test Patient Name: LILIANA MICHAELS Ordering Physician: [id number] Ty MD Study Date: 02/15/2022 Reading Physician: [id number] Ty MD MRN/PID: [id number] Supervising Physician: [id number] Yovani Rivera MD Accession/Order#: [id number] Referring Physician: VALENTINO TY Date of : 1965 PCP: Ishmael Simon Gender: M Fellow: Height: 162.56 cm Nurse: Yunior Bhatti RN Weight: 81.65 kg Consumer Education Specialist: SAEID BSA: 1.87 m2 Technologist: BMI: 30.90 kg/m2 Additional Staff: Age: 56 years cc report to: Patient Location: cc report to: [id number] Valentino Ty MD Study Type: Cardiac Stress Test Diagnosis/ICD: R94.31-Abnormal electrocardiogram [ECG] [EKG]; R00.1-Bradycardia, unspecified; R06.00-Dyspnea, unspecified Indication: Dyspnea Procedure/CPT: Stress Test Interpretation-[id number] ; Stress Test Supervision-[id number] Falls Risk: Low: Patient has low risk [...] 7. An element of chronotropic incompetency noted. [id number] Valentino Ty MD Electronically signed on 02/16/2022 at 2:52:20 PM Final Normal [facility] Cardiac Stress Test Please click on the link to view the study images [facility] Work Phone: Cardiac Stress Test MP-[facility] [address] DO Work Phone: Office Visit [...] Status:Hold For - Scheduling,Retrospec tive Authorization; Requested for:28Jan2022; Class 1 obesity with body mass index (BMI) of 30.0 to 30.9 in adult Healthy Weight Tips; Status:Complete - Retrospective Authorization; Done: 28Jan2022 Some eating tips that can help you lose weight.; Status:Complete - Retrospective Authorization; Done: [id number] Sinus bradycardia You need to stop smoking. Though it is not easy, more than half of all adult smokers have quit. We encourage you to write down all the reasons you should quit smoking and set a quit date for yourself. Ask us how we can help. You may also call 0-308-ELOLNOW for free resources and assistance.; Status:Complete - Retrospective Authorization; Done: [id number] SocHx: Current smoker Continue with our present treatment plan.; Status:Complete - Retrospective Authorization; Done: [id number] Tobacco Use Screening; Status:Complete; Done: [id number] Patient Instructions Please bring all medicines, vitamins, [...] This led to a cardiac evaluation in [place] and its not clear to me whether [...] Oral Capsule Delayed ReleaseTAKE 1 CAPSULE Daily Bkdskf7y at bedtime Sin (more content not included)... Normal [employer] Tobacco Screening.on 022 Adult depression screening assessment No [facility] 600 DO Work Phone: Fall risk assessment a) [facility] the [facility]: Tobacco use status CPHS a) Yes M [facility] 600 DO Work Phone: Tobacco Screening. Yes [facility] 600 DO Work Phone: Covid-19 PCR ([facility])on SARS-CoV-2 (COVID-19) RNA KATT+probe Ql (Unsp spec) Not detected Normal NOT DETECTED [facility] Comment on above: Result Comment: This test is not yet approved or cleared by the [place] FDA. When there are no FDA-approved or cleared tests available, and other criteria are met, FDA can make tests available under an emergency access mechanism called an Emergency Use Authorization (EUA). The EUA for this test is supported by the [place] of Health and Human Service's (HHS's) declaration [...] consistent with SARS-CoV-2. Performed By: #### C [facility] #### [facility] [address] [place] [address] Dr. Britt Mendoza Covid-19 PCR (CVDTB)on 11-07 SARS-CoV-2 (COVID-19) RNA KATT+probe Ql (Unsp spec) Not detected Normal NOT DETECTED [facility] Comment on above: Result Comment: This test is not yet approved or cleared by the [place] FDA. When there are no FDA-approved or cleared tests available, and other criteria are met, FDA can make tests available under an emergency access mechanism called an Emergency Use Authorization (EUA). The EUA for this test is supported by the Business Operations Consultant of Health and Human Service's (HHS's) declaration [...] consistent with SARS-CoV-2. Performed By: #### C [facility] ####[facility] [address] [place], [place] [address]Mb. Britt Mendoza XR CHEST 2 Von 10-01-2021 [...] by: FLEX JACOBS Date: 2021-10-01 09:30 Normal [facility] Ambulatory Clinical Summaryo n 03-05-2021 Ambulatory Clinical Summary {[id number]}CD:[id number] Normal [facility] Historical Records Officeon 03-05-2021 Historical Records Office [id number] #1.00CD:127 Normal [facility] Patient Educationon 03-05-20 Patient Education Urology Erectile [...] these instructions at home: Medicines ? Take rech-bho-hfnjatc and prescription medicines only as told by [...] of your (more content not included)... Normal [facility] Urology Office/Clinic Noteon 03-05-2021 Urology [...] order. Ordered: Office Visit Level 4 Est 77415 2. Hypogonadism male (E29.1: Testicular hypofunction) noted [...] time. Ordered: Office Visit Level 4 Est 63183 3. BPH with urinary obstruction (N40.1: Benign prostatic hyperplasia with lower urinary tract symptoms) s/p Urolift September 2018. Pt is currently taking no bladder/prostate medication and is mostly satisfied with overall symptom control. has nocturia but attributes this to diuretics. Pt prefers to continue with no changes at this time. PCP checking PSAs per pt. Ordered: Office Visit Level 4 Est 45364 Orders: Urnls Dip Stick Auto w/o Microscopy POC 63355 offered f/u 1 yr but pt prefers PRN. Total time spent reviewing previous notes/results/[employer] al documents, preparing the chart, conducting the encounter with the patient and family, ordering tests/medications, and documenting the encounter was 30 minutes. Follow-up With When Contact Information ITA SLOAN, SIMONE Priest [address] [place] [address]- Additional Instructions: Patient Education Erectile Dysfunction Problem [...] inhalation powde (more content not included)... Normal [facility] Comment on above: Result Comment: Elec tronically Signed By: TOMEKA SANCHEZ PA-C\.br\Date and Time Signed: 03/05/21 12:24 EDT MRI PELVIS WO CONTRASTon MRI PELVIS WO CONTRAST [facility] Department of Radiology [address] [place] [address] Patient Name: LILIANA MICHAELS : 1965 Sex: M Age: Race: White Pt. Location: 18 Patient Status: Ordered Date: 09/10/2020 3:35:00 PM Completed Date: 10/03/2020 08:34 AM Requesting Provider: SIMONE RUIZ Attending Provider: Report Copy To: Signs & Symptoms: R10.2 Pelvic and perineal pain I10 History: [place], Right FOREIGN per clinic will fax SS [place] auth# [id number] 09/16/20-10/17/20 cpt code 62978 *mla Comments: Right groin to r/o an [...] spine. Electronically signed: Dinh Miller. Transcribed by: [email or web address], User Resident: Electronically Signed by: DINH MILLER @ 10/03/2020 09:57 AM Normal [facility] Comment on above: Order Comment: Right groin to r/o an adductor tear; iliopsoas bursitis or injury Operative Reporton Operative Report MR#: [id number] [facility] Pt. Name: Liliana Michaels Room [...] Ruiz MD Date Trans: 09/10/2020 11:40 P/mmo [id number] cc: Ishmael Simon M.D. [address] [facility] [address] [place] [facility] Coding Summary.on 09-01-2020 Coding Summary. [id number] Gh0bWw+PGhlYWQ+PE1FV LMqF40bzCDuhM4QO5xHH Q0NYFIZKBCKIK5ENE2eb QU8DLwyH4CvqgYz IdqmmGPxOQ47GOm3LER9 nXowSLytkV2wwVCoO7q1 TpLvNJ21rJ38RAikWIDp CxL3CmUeirrbnHQp Q1aiFzCptCJdRxc+PHRh YmxlIHdpZHRoPScxMDAl CxMkdXlfHL8yMh6jZFOh LWNvbGxhcHNlOiBj s4zyTGUzODhfIO2jdFja N3PgxDC8UPPvq8n8Oc30 dHI+KPKkLZT6yEwiIAvo f053GsYja3ncIIW5 wRZyEPobGWO7K19hm1K8 WIIsOVBiEET2uVT8nR2w sPpjjrwxO6AhdMHbWzJ7 PDQ9vMKqgA9ciFaw ilmrmY2yPqy+A13ZJQ2X SBRVXV6ZQba3Z9PmGdty dHI+MH07ITItTA32wEVn eYZvs2tzcYu8WiDl FXKsOAE7mNrxVMktf1Am TARdS43gsZBok7S2HRGv bYmlsFRnLwHyaLY4cX2f RGvsuyhvs3uxlrmw Maqjt6ibjb71lI08L53k ENrvXCInJHA3EFAdEOTn fYxoys2mcO6fIc3+IDxj p6bcj8vuoVj9CuRw VWKxurMmdQbhRVO5l3Uz Cl46I4KmrTuuv6DvSws9 hu09pHCen7I5aZB4KThg SXXpzE2mPWegSmK0 JRFpNmPkgZ58cWFrCSfy Kt3tjUhfaXssTO4uGEWc czzoVSQbyS4qTYJbqRCl eExbQR0dMVFhcrql k847JmHvJZH9AZCcrEIm C2OvzO1pSdVqUIJwWZCn X2WqrEDeZUbpX209TOzk OpC3PKOrldMgE8Fe GSBmtJyxNiS8j2I6Zu7M t3KpwvblOZX2ZWfrAOV0 QqA1BhYsDaR0V0MjWbf3 MXXkxAsyRT9uJ9Cw ADEcrvexuqpcwVS9FEXk DYPtwC93eVDqEIauPy8g n6M7q934MMJrLYNziW33 Qn3abOtbTNKytDQV fY9hyujjr1ukferrOyTp FIYaMYv2QTc2KNVfeRqy SbSfPWM6HdZ0KRG3dLKx pS1jpMlrwxogxZ4w Oyc+Q21xeK9bZMG0UPW0 oxnzHRFfexDrPD74JL27 V9ZfDdikcYRwiWS+PGRp heNccUpkBG3pSmHy d1vap3FeQNzhF4ClPOAx HIrkDqu0BPJvOBV9qUK9 dN9zDWQmRNhea6K4mOB6 I5FduqFhqv7sp4yu JAZkYVbpE96beOAfp3I6 MGNisVV0HVZepMmhUsUz sZ49Iww+GEBfqOzcw4Bv Xgksc8cik6zmcPq3 IjMwJSIgdmFsaWduPSJ0 v3VaBa04G33pIDcjASGf ULBqVQZtWRVhvYlicv2u vC4eBp1+PGNvbCB3 zEM8aH3vTPQcLxF2KBua B227ObJbrPYiXmvbj9il u3fnhDe1ThVsQUIlslXa vQgrRPC7u3OyJb06 J07vEBhyMMEmPMTwJJIy DQFdxYbxug3zkE5xTg8+ PZ4sd7haca00kX27hBZ+ TVCsTBE6qFgrOBij PXVqvU7rQSxaSvC1REMr IoEekL37wQKrJKmnIn2r qPkjgNipBA7gCOYhfrrk o261NsPdg4iiLLRd yHXtGCuxILI1V97kh2T1 QILrJGUvCJM2aOG9oB1p bGlnbjogbGVmdDsgdmVy lWawGJewRZojQ453 IHRvcDsnPlBhdGllbnQg PqAsUSm0E7DaZsx6PCGt qEdgJK1zqJRnOEqrAh5v iBnzsGviDB1gPRIn axctw964KxTub1qaPRZk wJBsGQnmKWR2O60cn9C0 SKRjHULjWHI0bDB0qX2y bGlnbjogbGVmdDsg mwWgdVngSXuqHJxcG806 IHRvcDsnPkJpcnRoIERh yDX3WK62MS16eMNzk3D7 pFX5D4TyBLNsxoit klaijTJ6QNJhGTZqdF28 Bu7xwYiuXp5sRZNiJPG3 LVYkcOVtG0QkuF5xLuVt IDCkGSWdH6WbpIDm BJicP957ATvxLeK6EUGu cvBsW1FxWCFwgLtlVkC4 z4O2Ve2EZ7X4ZX59EJ73 vEMms9Q2nHY4S6Yi HFShovtmcapzdAR1QMNl ZWLxaC50Es4woLjjRu0r DHYwZNZ1VBFgcQDqV4Iv cX7pYwHsPKIpSIVb G6HzmWOiPDmnV639NOzh BxP0KGPtraXzN0AyJNXh dUapBcK2v0O5Zk9UPJe6 NZ91WS58fJVlz4I1 nBX4X4UaTMHdwnatwtzq zJF6QUStHDNucL39Zh3q kHgvQp8wTAOqVWU7AUAq aISzI3BqnO2rUrMs REXzTQWjO5XhyZGiZRuq Z592QHrmZyP6QEHpifHx O1PrMCSyhLbuWaG1p6P7 Bm0XLGXuPO18PZP5 tJT5ZT12JR37L7CiIkpw dGFibGU+PHRhYmxlIHdp ZHRoPScxMDAlJyBzdHls LA3pLf1qACFzDYSe cMjcjENeHhPte1qdJGFp XZunPI9vaNemS3VuxWD0 RCDew8v4Uy42U27uK2Cx dXA+PFTrmJS4aTD8 oX2tRzZdOrR1YPffY091 LpLzgWMuBwomh1myt9mr eKk6BzM1XAZxgsQfmZmf SDA5u0AfHl09B35x IHdpZHRoPSIxNSUiIHZh oYpotg6wdQ5iIu2+PGNv bWZ3dYR9dS1iUlRrLlS6 YKuoS165XyAdgHNt Fjafk3zop4afxAt9JdSe TIXslwIngNzfOXJ2z8Fd Gb96E5KnbTauc1CnBix2 oq29dPNvf0K2mOJ5 B1BlAXSruwsqeTJcxJrs HE2zYGHuveuiVXBgsN1o VKViA9c6CvTjMsR7YZnp Q3XkweR6YSUrvKAv FTmvSNP6O98db3T2WYKc YJArYPJ6jXN6wQ1nxEsy bjogbGVmdDsgdmVydGlj VTikZTgyU832QHMt eOsyAJEuyK1lOELzoGKh oGomZG1fEDVjbtkrWmtV HX4IOinbLmIDJSbmOLuu dGQ+VOWvGWA5qYlh FCfiYSDyuP3xIWEsP9q7 MgGdQtU8KRabG5YwPCIb sfxyIi80kO8dPwQoGcU8 OZetV6SsahL4QBSv uKGkFOasWER4V93dw8N2 HZFoWHUiXEY9bAO1xJ2d bGlnbjogbGVmdDsgdmVy zUqbTAvnMOauH464 FDXgcVfqTrUbLcU0XvU0 VtM6A7ZxFxu4OPLmlMdx UU2tfJYlOZhqOr0whIdf sIhlEL8qQTQownmi UFLmqB0fVVOjgGFlqVzy CV1iMHOncmmsk549AnSh QFH2ZIRyeMTqH5QosT1m MhJaXBCdUEEnP9Ae yNViHJctW357ZYstUjS1 EEGodmSzE9VdDPKouHsr WrI4g4S3Fv25NdHKBNGp czwvdGQ+PHRkIHN0 kHwdVBreYYPkdH3rFAXo Q6u0IuTpSqO0TGskK0Kj GORxxehpLc97nQ8kGnCm YgM5FZhgD8CbwfH0 XYKebPDxHOuhZKG9W00g z1H6GTSuHPRaEFK3aEG5 iO7jbIbourkjhFUosOku dmVydGljYWwtYWxp Y700FRRanXsfRp4xtHP5 Y1KtQvy9LLMbsYfiKO6j rQOsSBxoKm6foJtmzJln VZ8tHVKfhfwaPRBc dT2bCCEiwINtrXlzIQ0e GNOzgyioy548VqVgYMB5 EHMvzYCrB6AyzW7oCzFh UAVwXUYdV4YduFUi XFieU676GFraPwT5EZHm tqGxO0CdZPUjjTgpYlP3 m2L2Sn1DjZTcW6AzF8q4 U7SqYrqrjXK+PC90 EXCeZZ42tQOzsJLae9gh iEa4WlKyHTXwGUK1lVwu CGsbr4WuYPTcE39hhMWa o4S6BYIidXzwkVFa BvVxjCQ2cW6gIDdnwllx w0bmnbdtVobxr8elmu39 gQ51M88kPNqvGSNkXTGb EMOfGLQxjAuizg7o sP1oPr5+ETFdwHM4jHW4 zO8fXhEdReE9HAieX972 IfNgaNEkDnjxs6hpo8tf oUx1EkVoMEXgziHj dPosOFV1b5FkCb76N48n IHdpZHRoPSIyMCUiIHZh qDbkxx1uzQ8rLh2+PC9j c9byxb88sV74pLT+ FMTfLTG8pJukQAprLPOp qM7cQFqzMiG9DRJuSwCb sY05tSMwEJqtEd3onUfu uPwvLL6pTPLjykjc k627DxMti3ahBQWmhULn QOkhLSI3D35rw9U4VOZs FATkQCV7nFG2pZ6ukSke bjogbGVmdDsgdmVy yBdtZUzsBFytK085GHMk iOxqZjAzjKAxW7vlpyBM ZF1qJraluFH+PHRkIHN0 mMvzVHoqQOUivU4w FXMoZ2n0SyLoEaT0MIjq J8NrqzQ5SRLhsESfVKQm oSTIbJ8nydurn1ceddmb YxFoJFArSHy3OQb4 NUWlrTuoYhIqFLZ0JwU1 ILW8hYChvO3vxWihlxgg wQ5zSdn+RklOOjwvdGQ+ BDXuSBT9gZqyXRgx VFWfiN2yCMBnC7v4KfHz TsJ5KZxgK5MhtqB1ADNf qBIbEYXseIVSbJ2hkykn x2srsorrGfCxIYCi YHz5KKt7MTIbrDluGgOs KJO1XyL1RDQ1uPMsyV6s fDjdfhaxxX6oNlw+TVJO OjwvdGQ+PHRkIHN0 lYsjHLhrSRAbeP3qRZQd B7t4FjClYbK9CGthF5Lk jnC6UVAlfIHeUEWtkOIO tA0wqbwpf6lmsldl HzIsUAVaVWf4UCg7KLXw lOvaZwStSXB2DdN1UUR7 nVPloK0pcPxvcbmhgT8o Oyc+GJO5UHE2QR13 NX71M8IlMrlmnTZjpDQ+ PHRhYmxlIHdpZHRoPScx SOEsBaZpeQwdUL6eBr2g ZGVyLWNvbGxhcHNl OiBj (more content not included)... Normal [facility] Auto Diffon 08-24-2020 Basophils/100 WBC (Bld) 1.0 % Normal 0.0-2.0 [facility] Comment on above: Order Comment: Order Added by Discern Expert. Performed By: #### 1 7454602, 6066816, 0599114, 86924980, 3262047, 2594155, 38577495, 78808979 ####[facility] [address] [place] [address] Basophils/Leukocytes Auto (Bld) [Pure # fraction] 0.1 E9/L Normal 0.0-0.2 [facility] Comment on above: Order Comment: Order Added by Discern Expert. Performed By: #### 1 3219623, 2865779, 2953871, 22987595, 1365392, 3484833, 36795703, 82362356 ####[facility] [address] [place] [address] Eosinophils/100 WBC (Bld) 2.5 % Normal 0.0-8.0 [facility] Comment on above: Order Comment: Order Added by Discern Expert. Performed By: #### 1 0255536, 8895017, 6995544, 30410094, 1897426, 1147128, 40794537, 80725176 ####[address] [place] [address] Eosinophils/Leukocytes Auto (Bld) [Pure # fraction] 0.3 E9/L Normal 0.0-0.5 [facility] Comment on above: Order Comment: Order Added by Discern Expert. Performed By: #### 1 8162261, 4474145, 8779630, 71670286, 7920095, 3679081, 88128184, 97205755 ####[address] [place] [address] Lymphocytes/100 WBC (Bld) 21.0 % Normal 14.0-50.0 [facility] Comment on above: Order Comment: Order Added by Discern Expert. Performed By: #### 1 2932942, 4897289, 0060619, 20573576, 7948320, 9436598, 74736070, 76101296 ####[facility] [address] [place] [address] Lymphocytes/Leukocytes Auto (Bld) [Pure # fraction] 2.1 E9/L Normal 1.0-4.0 [facility] Comment on above: Order Comment: Order Added by Discern Expert. Performed By: #### 1 6133099, 1238357, 4950322, 74696120, 5015697, 3738108, 61952686, 32728804 ####[address] [place] [address] Monocytes/100 WBC (Bld) 6.2 % Normal 4.0-14.0 [facility] Comment on above: Order Comment: Order Added by Discern Expert. Performed By: #### 1 3607628, 9994032, 8291123, 24731855, 6538224, 0447177, 24016254, 40143726 ####[facility] [address] [place] [address] Monocytes/Leukocytes Auto (Bld) [Pure # fraction] 0.6 E9/L Normal 0.2-1.0 [facility] Comment on above: Order Comment: Order Added by Discern Expert. Performed By: #### 1 1363969, 6486914, 0185120, 72515131, 7576988, 0252064, 90072216, 39722431 ####[address] [place] [address] Neutrophils/100 WBC (Bld) 69.3 % Normal 36.0-75.0 [facility] Comment on above: Order Comment: Order Added by Discern Expert. Performed By: #### 1 4348443, 9461450, 8475734, 28530992, 4432584, 2795783, 22598897, 78870205 ####[address] [place] [address] Neutrophils/Leukocytes Auto (Bld) [Pure # fraction] 6.9 E9/L Normal 2.0-7.5 [facility] Comment on above: Order Comment: Order Added by Discern Expert. Performed By: #### 1 0593645, 2370858, 3253934, 61063104, 6621882, 6119941, 16167247, 58813542 ####[facility] [address] [place] [address] BMPon 08-24-2020 Creatinine [Mass/Vol] 1.1 mg/dL Normal 0.5-1.3 [facility] Comment on above: Performed By: #### 1 5303096, 7970785, 4311561, 21203690, 3443343, 4498455, 20685162, 01926509 ####[facility] [address] [place] [address] Urea nitrogen [Mass/Vol] 19 mg/dL Normal 5-21 [facility] Comment on above: Performed By: #### 1 2328334, 0778769, 8671150, 01782117, 2037252, 2819323, 45727748, 58222501 ####[facility] [address] [place] [address] Urea nitrogen/Creatinine [Mass ratio] 17 No Units Normal 10-20 [facility] Comment on above: Performed By: #### 1 2602852, 1716032, 7075631, 01562864, 5776151, 8738351, 81808613, 29155667 ####[facility] [address] [place] [address] Anion gap [Moles/Vol] 14 mmol/L Normal 6-16 [facility] Comment on above: Performed By: #### 1 8209856, 4469148, 5523124, 98498942, 5918662, 0048315, 15877846, 46912891 ####[facility] [address] [place] [address] Calcium [Mass/Vol] 9.4 mg/dL Normal 8.9-11.1 [facility] Comment on above: Performed By: #### 1 5004800, 7915020, 3931434, 56907558, 9332698, 8214815, 49976127, 60930831 ####[facility] [address] [place] [address] Chloride [Moles/Vol] 94 mmol/L Low 101-111 [facility] Comment on above: Performed By: #### 1 5716599, 5654565, 8325710, 16564154, 1548340, 3310367, 30550541, 00801813 ####[facility] [address] [place] [address] CO2 [Moles/Vol] 29 mmol/L Normal 21-31 [facility] Comment on above: Performed By: #### 1 2567102, 3318754, 4578778, 95325267, 8081313, 0589975, 95255800, 91432110 ####[facility] [address] [place] [address] Glucose [Mass/Vol] 103 mg/dL Normal 55-199 [facility] Comment on above: Result Comment: If t his glucose result represents a fasting glucose, interpretation should refer to the following reference range: 55-99 mg/dL Performed By: #### 1 2225709, 9558857, 1180456, 43950190, 7473629, 1259489, 71764349, 29558507 ####[facility] [address] [place] [address] Potassium [Moles/Vol] 4.0 mmol/L Normal 3.5-5.3 [facility] Comment on above: Performed By: #### 1 3048335, 1678258, 0758583, 02136410, 0362549, 8851607, 40318698, 11088686 ####[facility] [address] [place] [address] Sodium [Moles/Vol] 133 mmol/L Low 135-145 [facility] Comment on above: Performed By: #### 1 6688601, 0283594, 9490420, 07680913, 9615035, 0638963, 07156128, 90177494 ####[facility] [address] [place] [address] BNPon 08-24-2020 Natriuretic peptide B (Bld) [Mass/Vol] 17 pg/mL Normal 5-80 [facility] Comment on above: Performed By: #### 1 3707447, 7936258, 9263437, 31765819, 1567588, 1583240, 33281786, 24655688 ####[facility] [address] [place] [address] CBC w/ Auto Diffon Erythrocyte distribution width (RBC) [Ratio] 12.9 % Normal 10.9-14.2 [facility] Comment on above: Performed By: #### 1 7441502, 6337970, 6847411, 15396528, 8797604, 7352304, 78628103, 14936329 ####[address] [place] [address] Hematocrit (Bld) [Volume fraction] 44.4 % Normal 37.7-49.0 [facility] Comment on above: Performed By: #### 1 3328123, 2615278, 4233356, 34660807, 6552106, 9722931, 23132811, 63076925 ####[address] [address] Hemoglobin (Bld) [Mass/Vol] 15.3 g/dL Normal 13.5-17.5 [facility] Comment on above: Performed By: #### 1 0133328, 2216607, 6973315, 05125139, 0191763, 9337842, 79683557, 37922561 ####[address] [address] MCH (RBC) [Entitic mass] 31.5 pg Normal 27.0-34.0 [facility] Comment on above: Performed By: #### 1 8347529, 9226914, 9999364, 01359912, 5513955, 3778850, 33315914, 76441267 ####[address] [address] MCHC (RBC) [Mass/Vol] 34.4 g/dL Normal 31.4-36.0 [facility] Comment on above: Performed By: #### 1 1299401, 9228973, 4825438, 50700947, 2733168, 6664519, 92255260, 98636097 ####[address] [address] MCV (RBC) [Entitic vol] 91.6 fL Normal 80.0-100.0 [facility] Comment on above: Performed By: #### 1 3217753, 9284816, 8320602, 80506639, 4317067, 1609436, 85392716, 75812436 ####[facility] [address] [place] [address] Platelet mean volume (Bld) [Entitic vol] 8.4 fL Normal 6.4-10.8 [facility] Comment on above: Performed By: #### 1 9977526, 7372197, 9158511, 76079406, 8904782, 2819388, 42219037, 02853874 ####[address] [address] Platelets (Bld) [#/Vol] 289.0 E9/L Normal 150.0-500.0 [facility] Comment on above: Performed By: #### 1 3573348, 9990172, 4213332, 89508689, 4786017, 2757774, 77942748, 23848602 ####[address] [address] RBC (Bld) [#/Vol] 4.8 E12/L Normal 4.3-5.9 [facility] Comment on above: Performed By: #### 1 8454784, 7977378, 0191501, 42505208, 8118645, 2122026, 85968254, 13794601 ####[address] [address] WBC corrected for nucl RBC Auto (Bld) [#/Vol] 9.9 E9/L Normal 4.0-11.0 [facility] Comment on above: Performed By: #### 1 8724261, 7913300, 4617233, 76611112, 6164789, 3590609, 26142303, 74533210 ####[address] [address] CTA Cheston 08-24-2020 CTA Chest Exam Date/Time: [...] 370 Contrast amount in ml's: 78 Normal [facility] Consent for Treatmenton 08-07 Consent for Treatment [id number] 10 [id number] #1.00CD:127 Normal [facility] D-Dimeron 08-24-2020 Fibrin D-dimer FEU (PPP) [Mass/Vol] 845 ng/mL Abnormal 215-500 [facility] Comment on above: Result Comment: [...] infections Liver cirrhosis Performed By: #### 1 3939418, 0168240, 3440029, 77626809, 3924860, 4842206, 13743774, 72771425 ####[facility] [address] [place] [address] Discharge Instructionson Discharge Instructions [id number] [id number] #1.00CD:127 Normal [facility] ED Clinical Summaryon 2020 ED Clinical Summary [address] [address] ED Clinical Summary Person Information Name: LILIANA MICHAELS Kristine/[facility] Age: 55 Years : 1965 Sex: Male Language: Zimbabwean PCP: SIMONE JEAN BAPTISTE DC Marital Status: Single Phone: [phone] Visit Id: Visit Reason: Rib/trunk pain-swelling; SIDE [...] 08/24/2020 03:27:58 08/24/2020 03:27:58 08/24/2020 03:27:58 ADDRESS: [address] [place] [phone] PHYS DOC NOTES: MEDICAL INFORMATION: Prescriptions Given: New Medications [id number], [address], [place] [id number], [phone] azithromycin (Zithromax TRI-AMIRA 500 mg oral tablet) [...] Address: When: SIMONE JEAN BAPTISTE [address] [place] [address] Business (1) In 1 day 08/25/2020 Comments: Patient is advised to follow-up with his primary care physician in 1 to 2 days. He is also advised to come back to the emergency department if symptoms get worse. DIAGNOSIS: 1:Rib pain on left side Normal [facility] ED Note-Physicianon 08-25-19 ED Note-Physician [...] [facility]) Orders: albuterol-ipratropiu m, 3 mL, Soln-Inh, Inhalation, [...] hours on and 12 hours off daily, [id number], 163, cm, 08/24/20 0:04:00 EDT, Height/Length Dosing, 101, kg, 08/24/20 0:04:00 EDT, Julian (more content not included)... Normal [facility] Comment on above: Result Comment: [...] Document Reviewed: 11/28/2008 ExitCare? Patient Information ?2015 [employer] This information is not intended to replace advice given to you by your health care provider. Make sure you discuss any questions you have with your health care provider. Normal [facility] ED Patient Summaryon 021 ED Patient Summary [address] [address] Patient Discharge Instructions Person Information Name: LILIANA MICHAELS Age: 55 Years Arrival Date: 08/23/2020 23:48:11 Discharge Diagnosis: 1:Rib pain on left side Primary Care Physician: SIMONE JEAN BAPTISTE DC Provider Information Primary Provider: Pia LANE, David Advanced Drawer In Plain Loom:None The exam and treatment you received in the Emergency Department were for an urgent problem and are not intended as complete care. It is important that you follow up with a doctor, nurse practitioner, or physician?s assistant [employer] of content [employer] delivery for ongoing care. If your symptoms become [...] With: Address: When: SIMONE JEAN BAPTISTE [address] [place] [address] [facility] (1) In 1 day 08/25/2020 Comments: [...] opioids can be used to help relieve titvsttn-sr-cutdjw pain and are often prescribed following a [...] be struggling (more content not included)... Normal [facility] PT & PTTon 08-24-2020 aPTT Coag (PPP) [Time] 30.2 second(s) Normal 25.1-36.5 [facility] Comment on above: Result Comment: Hepa rin therapeutic range (represented by Anti-Factor Xa activity of 0.2 - 0.4 U/mL) corresponds to PTT of 56.6 - 109.0 sec. Performed By: #### 1 4829626, 9499356, 0306821, 18817597, 6678786, 6072590, 98218082, [id number] ####[facility] [address] [place] [address] INR Coag (PPP) [Relative time] 1.0 {INR} Invalid Interpretation Code [facility] Comment on above: Result Comment: INR results are specifically intended to assess patients stabilized on long-term Anticoagulation therapy suggested INR?s ?Less Intensive Anticoagulation? 2.0 ? 3.0 Conventional Range 3.0 ? 4.5 Performed By: #### 1 [id number], 4869527, 0374114, 35953525, 1270797, 6849678, 76659603, 84516989 ####[address] [place] [address] PT Coag (PPP) [Time] 11.6 second(s) Normal 10.2-12.9 [facility] Comment on above: Performed By: #### 1 [id number], 3406855, 5710104, 33598609, 9578614, 0492422, 21559068, [id number] ####[address] [place] [address] RAD - Preliminary Cat Scan R eporton 08-24-2020 RAD - Preliminary Cat Scan Report [id number] #[id number] Normal [facility] Rapid COVID Antigen ([facility])on 08-24-2020 Rapid COV Int NEG Ctl Pass Normal [facility] Comment on above: Performed By: #### 2 [id number] ####[address] [place] [address] Rapid COV Int POS Ctl Pass Normal [facility] Comment on above: Performed By: #### 2 [id number] ####[address] [place] [address] SARS-CoV-2 (COVID-19) RNA KATT+probe Ql (Unsp spec) Not detected Normal Not Detected [facility] Comment on above: Result Comment: The [employer]? System for Rapid Detection of SARS-CoV-2 is [...] or revoked sooner. Performed By: #### 2 [id number] ####[address] [address] Employed in Healthcare NO Normal [facility] Comment on above: Performed By: #### 2 [id number] ####[address] [facility] [place] [address] First Test Unknown [facility] Comment on above: Performed By: #### 2 [id number] ####[address] [facility] [place] [address] Hospitalized? NO Normal [facility] Comment on above: Performed By: #### 2 [id number] ####[address] [place] [address] ICU NO Normal [facility] Comment on above: Performed By: #### 2 [id number] ####[address] [facility] [place] [address] ? NO Normal [facility] Comment on above: Performed By: #### 2 [id number] ####[facility] [address] [place] [address] Resides in a Congregate Care Setting NO Normal [facility] Comment on above: Performed By: #### 2 [id number] ####[facility] [address] [place] [address] Symptomatic as defined by CDC YES Normal [facility] Comment on above: Performed By: #### 2 [id number] ####[facility] [id number] Troponin 0 Hr.on 08-24-2020 Troponin I.cardiac [Mass/Vol] 4.10 pg/mL Low 15.90-38.40 [facility] Comment on above: Result Comment: The 95% CI (Confidence Interval) PPV (Positive Predictive Value) for myocardial infarction in females is 38 pg/mL, in males 51 pg/mL. The results should be used in conjunction with clinical conditions of myocardial infarction. (Access High Sensitivity Troponin I Instructions For Use, [employer], December 2017) Performed By: #### 1 [id number], 5946329, 4049616, 83169504, 2250554, 5688391, 81952043, 58975003 ####[facility] [address] [place] [address] Troponin 3 Hr.on 08-24-2020 Troponin I.cardiac [Mass/Vol] 4.40 pg/mL Low 15.90-38.40 [facility] Comment on above: Result Comment: The 95% CI (Confidence Interval) PPV (Positive Predictive Value) for myocardial infarction in females is 38 pg/mL, in males 51 pg/mL. The results should be used in conjunction with clinical conditions of myocardial infarction. (Access High Sensitivity Troponin I Instructions For Use, [employer], December 2017) Performed By: #### 1 [id number] ####[address] [place] [address] XR Chest Single Viewon 08-24 XR Chest [...] V. Transcribed by: VIVIAN Technologist: DAT Perry [facility] eGFRon 08-24-2020 GFR/1.73 sq M.predicted among blacks MDRD (S/P/Bld) [Vol rate/Area] mL/min/{1.73_m2} Normal >=59 [facility] Comment on above: Order Comment: Order added by Discern Expert. Result Comment: eGFR is race adjusted. AA=. Performed By: #### 1 [id number], 1490929, 3064677, 64548115, 8080107, 2513032, 02883572, [id number] ####[facility] [address] [place] [address] GFR/1.73 sq M.predicted among non-blacks MDRD (S/P/Bld) [Vol rate/Area] mL/min/{1.73_m2} Normal >=59 [facility] Comment on above: Order Comment: Order added by Discern Expert. Result Comment: Architect Manager jeniffer kidney disease could be indicated at eGFR's of less than 60 mL/min/1.73m2. Kidney failure is indicated at less than 15 mL/min/1.73m2. Performed By: #### 1 7306046, 6283532, 0780498, 07129887, 0061145, 6837296, 51342125, 34284654 ####[facility] [address] [place] [address] HIP RIGHT 1 OR 2 VWS WITH PE LVISon 07-24-2020 HIP RIGHT 1 OR 2 VWS WITH PELVIS [facility] Department of Radiology [address] [place] [address] Patient Name: LILIANA MICHAELS : [...] Electronically signed: Ana M Mariee. Transcribed by: [email or web address], User Resident: Electronically Signed by: ANA M MARIEE @ 07/24/2020 10:01 AM Normal [facility] Comment on above: Order Comment: Views (X-RAY, HIP): Radiologic Protocol HIP RIGHT 1 OR 2 VWS WITH PE LVISon 04-24-2020 HIP RIGHT 1 OR 2 VWS WITH PELVIS [facility] Department of Radiology [address] [place] [address] Patient Name: LILIANA MICHAELS : [...] abnormality. Electronically signed: Ed España. Transcribed by: [email or web address], User Resident: Electronically Signed by: ED ESPAÑA @ 04/25/2020 08:22 AM Normal [facility] Comment on above: Order Comment: Views (X-RAY, HIP): Radiologic Protocol Operative Reporton 0 Operative Report MR#: [id number] [facility] Pt. Name: Liliana Michaels Room #: 6AB [id number] Discharge 03/15/2020 Date: Birthdate: 1965 OPERATIVE REPORT [...] a (more content not included)... Normal [facility] BASIC METABOLIC PANELon 11-0 Calcium [Mass/Vol] 8.8 mg/dL Normal 8.6-10.3 [facility] Comment on above: Order Comment: Views (X-RAY, HIP): Radiologic Protocol Performed By: #### 0 0071 ####[facility] [place] [address], [facility] Chloride [Moles/Vol] 98 mmol/L Normal 98-107 [facility] Comment on above: Order Comment: Views (X-RAY, HIP): Radiologic Protocol Performed By: #### 0 0071 ####[facility] [place] [address], [place] CO2 [Moles/Vol] 30 mmol/L Normal 21-31 [facility] Comment on above: Order Comment: Views (X-RAY, HIP): Radiologic Protocol Performed By: #### 0 0071 ####[facility] [facility] [place] [address], [facility] Creatinine [Mass/Vol] 0.96 mg/dL Normal 0.70-1.30 [facility] Comment on above: Order Comment: Views (X-RAY, HIP): Radiologic Protocol Performed By: #### 0 0071 ####[facility] [facility] [place] [place] [address], [place] GFR/1.73 sq M.predicted among blacks MDRD (S/P/Bld) [Vol rate/Area] mL/min/{1.73_m2} Normal >60 [facility] Comment on above: Order Comment: Views (X-RAY, HIP): Radiologic Protocol Performed By: #### 0 0071 ####[facility] [facility] [place] [place] [address], [facility] GFR/1.73 sq M.predicted among non-blacks MDRD (S/P/Bld) [Vol rate/Area] mL/min/{1.73_m2} Normal >60 [facility] Comment on above: Order Comment: Views (X-RAY, HIP): Radiologic Protocol Performed By: #### 0 0071 ####[facility] [place] [address], [facility] Glucose [Mass/Vol] 151 mg/dL High 70-100 [facility] Comment on above: Order Comment: Views (X-RAY, HIP): Radiologic Protocol Performed By: #### 0 0071 ####[facility] [facility] [place] [address], [facility] Potassium [Moles/Vol] 4.4 mmol/L Normal 3.5-5.1 [facility] Comment on above: Order Comment: Views (X-RAY, HIP): Radiologic Protocol Performed By: #### 0 0071 ####[facility] [place] [address], [facility] Sodium [Moles/Vol] 133 mmol/L Low 136-145 [facility] Comment on above: Order Comment: Views (X-RAY, HIP): Radiologic Protocol Performed By: #### 0 0071 ####[facility] [place] [address], [facility] Urea nitrogen [Mass/Vol] 20 mg/dL Normal 7-25 [facility] Comment on above: Order Comment: Views (X-RAY, HIP): Radiologic Protocol Performed By: #### 0 0071 ####[facility] [place] [address], [facility] CBC COMPLETE BLOOD COUNTon 05-15-2019 Erythrocyte distribution width (RBC) [Ratio] 12.2 % Normal 11.5-15.0 [facility] Comment on above: Order Comment: No: D o not add to previous draw Performed By: #### 5 0608 #### [facility] [address] [facility] [place] [address], [facility] Hematocrit (Bld) [Volume fraction] 42.2 % Normal 39.0-50.0 [facility] Comment on above: Order Comment: No: D o not add to previous draw Performed By: #### 5 0608 #### [facility] [address] [facility] [place] [place] [address], [facility] Hemoglobin (Bld) [Mass/Vol] 13.9 g/dL Normal 13.0-17.0 [facility] Comment on above: Order Comment: No: D o not add to previous draw Performed By: #### 5 0608 #### [facility] [address] [place] [address], [facility] MCH (RBC) [Entitic mass] 31.4 pg Normal 27.0-33.0 [facility] Comment on above: Order Comment: No: D o not add to previous draw Performed By: #### 5 0608 #### [facility] [address] [facility] [place] [address], [facility] MCHC (RBC) [Mass/Vol] 32.9 g/dL Normal 32.0-35.0 [facility] Comment on above: Order Comment: No: D o not add to previous draw Performed By: #### 5 0608 #### [facility] [address] [facility] [place] [address], [facility] MCV (RBC) [Entitic vol] 95.5 fL Normal 82.0-98.0 T brittany [facility] Comment on above: Order Comment: No: D o not add to previous draw Performed By: #### 5 0608 #### [facility] [address] [facility] [place] [address], [facility] Nucleated RBC/100 WBC (Bld) [Ratio] 0 % Normal 0-0 [facility] Comment on above: Order Comment: No: D o not add to previous draw Performed By: #### 5 0608 #### [facility] [address] [place] [address], [facility] PLAT CNT 254 10*3/uL Normal 150-400 [facility] Comment on above: Order Comment: No: D o not add to previous draw Performed By: #### 5 0608 #### [facility] [address] [facility] RBC (Bld) [#/Vol] 4.42 10*6/uL Normal 4.20-5.70 [facility] Comment on above: Order Comment: No: D o not add to previous draw Performed By: #### 5 0608 #### [facility] [address] WBC (Bld) [#/Vol] 14.44 10*3/uL High 4.00-10.60 [facility] Comment on above: Order Comment: No: D o not add to previous draw Performed By: #### 5 0608 #### [facility] [address] POC GLUCOSE LABon 03-15-2020 Glucose [Mass/Vol] 193 mg/dL High 70-100 [facility] Comment on above: Performed By: #### 8 5499 #### [facility] [address] CBC W/DIFFon 03-14-2020 ABS IMM GRANS 0.2 10*3/uL Normal 0.0-0.2 [facility] Comment on above: Performed By: #### 5 0103 ####[facility] ABS NEUTROPHILS 8.0 10*3/uL High 1.6-7.6 [facility] Comment on above: Performed By: #### 5 0103 ####[facility] Basophils (Bld) [#/Vol] 0.1 10*3/uL Normal 0.0-0.2 [facility] Comment on above: Performed By: #### 5 0103 ####[facility] [place] [address], [facility] Basophils/100 WBC (Bld) 1.1 % High 0.0-1.0 T he [facility] Comment on above: Performed By: #### 5 0103 ####[facility] Eosinophils (Bld) [#/Vol] 0.3 10*3/uL Normal 0.0-0.5 [facility] Comment on above: Performed By: #### 5 0103 ####[facility] Eosinophils/100 WBC (Bld) 2.7 % Normal 0.0-6.0 [facility] Comment on above: Performed By: #### 5 0103 ####[facility] Erythrocyte distribution width (RBC) [Ratio] 12.3 % Normal 11.5-15.0 [facility] Comment on above: Performed By: #### 5 0103 ####[facility] Hematocrit (Bld) [Volume fraction] 50.5 % High 39.0-50.0 [facility] Comment on above: Performed By: #### 5 0103 ####[facility] Hemoglobin (Bld) [Mass/Vol] 17.3 g/dL High 13.0-17.0 [facility] Comment on above: Performed By: #### 5 3 ####[facility] IMMATURE GRANS 1.4 % High 0.0-1.0 [facility] Comment on above: Performed By: #### 5 3 ####[facility] Lymphocytes (Bld) [#/Vol] 1.8 10*3/uL Normal 1.2-4.0 [facility] Comment on above: Performed By: #### 5 0103 ####[facility] Lymphocytes/100 WBC (Bld) 15.6 % Low 20.0-45.0 [facility] Comment on above: Performed By: #### 5 0103 ####[facility] MCH (RBC) [Entitic mass] 31.7 pg Normal 27.0-33.0 [facility] Comment on above: Performed By: #### 5 3 ####[facility] MCHC (RBC) [Mass/Vol] 34.3 g/dL Normal 32.0-35.0 [facility] Comment on above: Performed By: #### 5 0103 ####[facility] MCV (RBC) [Entitic vol] 92.7 fL Normal 82.0-98.0 [facility] Comment on above: Performed By: #### 5 0103 ####[facility] Monocytes (Bld) [#/Vol] 0.9 10*3/uL Normal 0.1-1.0 [facility] Comment on above: Performed By: #### 5 0103 ####[facility] MONOS 8.2 % Normal 5.0-12.0 [facility] Comment on above: Performed By: #### 5 3 ####[facility] [place] [address], [facility] Neutrophils/100 WBC (Bld) 71.0 % Normal 40.0-72.0 [facility] Comment on above: Performed By: #### 5 0103 ####[facility] Nucleated RBC/100 WBC (Bld) [Ratio] 0 % Normal 0-0 [facility] Comment on above: Performed By: #### 5 0103 ####[facility] [place] [address], [facility] PLAT CNT 301 10*3/uL Normal 150-400 [facility] Comment on above: Performed By: #### 5 0103 ####[facility] RBC (Bld) [#/Vol] 5.45 10*6/uL Normal 4.20-5.70 [facility] Comment on above: Performed By: #### 5 0103 ####[facility] WBC (Bld) [#/Vol] 11.22 10*3/uL High 4.00-10.60 [facility] Comment on above: Performed By: #### 5 0103 ####[facility] HIP RIGHT 1 OR 2 VWS WITH PE LVISon 03-14-2020 HIP RIGHT 1 OR 2 VWS WITH PELVIS [facility] Department of Radiology [address] [place] [id number] Patient Name: LILIANA MICHAELS : 1965 [...] purposes Electronically signed: Aria Steinberg. Transcribed by: [email or web address], User Resident: Electronically Signed by: ARIA STEINBERG @ 03/14/2020 03:44 PM Normal [facility] Comment on above: Order Comment: RT TH A POC GLUCOSE LABon 03-14-2020 Glucose [Mass/Vol] 222 mg/dL High 70-100 [facility] Comment on above: Performed By: #### 8 [id number] #### [facility] [address] [place] [address], [place] Glucose [Mass/Vol] 217 mg/dL High 70-100 [facility] Comment on above: Performed By: #### 8 5499 ####[facility] [facility] [place] [address], [place] Glucose [Mass/Vol] 141 mg/dL High 70-100 [facility] Comment on above: Performed By: #### 8 5499 #### [facility] [address] [place] [address], [facility] PORTABLE HIP RIGHT 1 OR 2 VW S WITH PELVISon 03-14-2020 PORTABLE HIP RIGHT 1 OR 2 VWS WITH PELVIS [facility] Department of Radiology [address] [place] [id number] Patient Name: LILIANA MICHAELS : 1965 [...] air Electronically signed: Aria Steinberg. Transcribed by: [email or web address], User Resident: Electronically Signed by: ARIA STEINBERG @ 03/14/2020 03:46 PM Normal [facility] Comment on above: Order Comment: Hardw are Evaluation, AP/Lateral TYPE AND SCREENon 03-14-2020 ABO INTERPRETATION O Normal [facility] Comment on above: Performed By: #### 6 2586 ####[facility] [place] [address], [facility] RH INTERPRETATION Positive Normal [facility] Comment on above: Performed By: #### 6 2586 ####[facility] [place] [address], [facility] Vital Signs Date Time Vital Sign Value Performing Clinician Facility 08-10-2023 13:31-0400 Body height 162.6 cm Amador Son MD Work Phone: [facility] 08-10-2023 13:31-0400 Body mass index (BMI) [Ratio] 34.67 kg/m2 Amador Son MD Work Phone: [facility] 08-10-2023 13:31-0400 Body weight 91.63 kg Amador Son MD Work Phone: [facility] 08-10-2023 13:31-0400 Diastolic blood pressure 70 mm[Hg] Amador Son MD Work Phone: [facility] 08-10-2023 13:31-0400 Heart rate 69 /min Amador Son MD Work Phone: [facility] 08-10-2023 13:31-0400 Systolic blood pressure 116 mm[Hg] Amador Son MD Work Phone: [facility] 08-05-2023 17:30-0400 Diastolic blood pressure 67 mm[Hg] Amador Son MD Work Phone: [facility] 08-05-2023 17:30-0400 Heart rate 60 /min Amador Son MD Work Phone: [facility] 08-05-2023 17:30-0400 Respiratory rate 16 /min Amador Son MD Work Phone: [facility] 08-05-2023 17:30-0400 SaO2% (BldA) [Mass fraction] 96 % Amador Son MD Work Phone: [facility] 08-05-2023 17:30-0400 Systolic blood pressure 112 mm[Hg] Amador Son MD Work Phone: [facility] 08-05-2023 12:13-0400 Body height 162.6 cm Amador Son MD Work Phone: [facility] 08-05-2023 12:13-0400 Body mass index (BMI) [Ratio] 34.17 kg/m2 Amador Son MD Work Phone: [facility] 08-05-2023 12:13-0400 Body temperature 97.5 [degF] Amador Son MD Work Phone: [facility] 08-05-2023 12:13-0400 Body weight 90.3 kg Amador Son MD Work Phone: [facility] 07-22-2023 14:38-0400 Body height 162.6 cm Amador Son MD Work Phone: [facility] 07-22-2023 14:38-0400 Body mass index (BMI) [Ratio] 34.33 kg/m2 Amador Son MD Work Phone: [facility] 07-22-2023 14:38-0400 Body weight 90.72 kg Amador Son MD Work Phone: [facility] 07-22-2023 14:38-0400 Diastolic blood pressure 90 mm[Hg] Amador Son MD Work Phone: [facility] 07-22-2023 14:38-0400 Heart rate 41 /min Amador Son MD Work Phone: [facility] 07-22-2023 14:38-0400 Systolic blood pressure 138 mm[Hg] Amador Son MD Work Phone: [facility] 07-14-2022 10:57-0500 Body height 162.56 cm Ishmael A Naderer Work Phone: [facility] [address] Work Phone: 07-14-2022 10:57-0500 Body mass index (BMI) [Ratio] 32.96 kg/m2 Ishmael A Naderer Work Phone: [facility] [employer] 600 DO Work Phone: 07-14-2022 10:57-0500 Body surface area Derived from formula 1.92 m2 Ishmael A Naderer Work Phone: [facility] [employer] 600 DO Work Phone: 07-14-2022 10:57-0500 Body weight 87.09 kg Ishmael A Naderer Work Phone: [facility] [employer] 600 DO Work Phone: 07-14-2022 10:57-0500 Diastolic blood pressure 64 mm[Hg] Ishmael A Naderer Work Phone: [facility] [employer] 600 DO Work Phone: 07-14-2022 10:57-0500 Heart rate 34 /min Ishmael A Naderer Work Phone: [facility] 600 DO Work Phone: 07-14-2022 10:57-0500 Systolic blood pressure 118 mm[Hg] Ishmael A Naderer Work Phone: [facility] 600 DO Work Phone: 01-28-2022 09:37-0400 Body height 162.56 cm Ishmael A Naderer Work Phone: [facility] 600 DO Work Phone: 01-28-2022 09:37-0400 Body mass index (BMI) [Ratio] 30.9 kg/m2 Ishmael Butch Carterr Work Phone: [facility] [employer] 600 DO Work Phone: 01-28-2022 09:37-0400 Body surface area Derived from formula 1.87 m2 Ishmael Butch Carterr Work Phone: [facility] [employer] 600 DO Work Phone: 01-28-2022 09:37-0400 Body weight 81.65 kg Ishmael Simon Work Phone: [facility] [place] 600 DO Work Phone: 01-28-2022 09:37-0400 Diastolic blood pressure 50 mm[Hg] Ishmael Carterr Work Phone: [facility] [place] 600 DO Work Phone: 01-28-2022 09:37-0400 Heart rate 41 /min Ishmael Rae Alfred Work Phone: [facility] [employer] 600 DO Work Phone: 01-28-2022 09:37-0400 Systolic blood pressure 112 mm[Hg] Ishmael Rae Alfred Work Phone: [facility] [place] [facility] Work Phone: Encounters Encounter Date Encounter Type Care Provider Facility Start: 03-30-2024 End: 03-30-2024 Refill Ishmael Simon MD Work Phone: [facility] Comment on above: Degeneration of lumb ar intervertebral disc Start: 03-27-2024 End: 03-27-2024 Patient encounter procedure Ishmael Simon MD Work Phone: [facility] [place] Work Phone: Start: 03-27-2024 End: 03-27-2024 ambulatory Ishmael Simon MD Work Phone: [facility] Work Phone: Start: 03-16-2024 End: 03-16-2024 ambulatory Danielle Bergeron Facility:[facility] Start: 03-16-2024 Non-patient / [facility]visit [facility] Start: 03-01-2024 End: 03-01-2024 Red Simon MD Work Phone: [facility] Comment on above: Degeneration of lumb ar intervertebral disc Start: 02-14-2024 End: 02-14-2024 ambulatory [facility] Start: 02-14-2024 End: 02-14-2024 Subsequent hospital visit by physician Varsha [facility] Comment on above: Cardiac pacemaker in situ; Sinoatrial node dysfunction (Multi) Start: 02-06-2024 End: 02-06-2024 ambulatory ISHMAEL NADERER Not Available Start: 01-25-2024 End: 01-25-2024 ambulatory [facility] Start: 01-13-2024 End: 01-13-2024 ambulatory ISHMAEL NADERER Not Available Start: 11-09-2023 End: 11-09-2023 [facility] Start: 10-10-2023 End: 10-10-2023 ambulatory ISHMAEL NADERER Not Available Start: 09-26-2023 End: 09-26-2023 ambulatory [facility] Start: 09-26-2023 End: 09-26-2023 Subsequent hospital visit by physician Varsha [facility] Comment on above: Cardiac pacemaker in situ; Sinoatrial node dysfunction (Multi) Start: 08-12-2023 End: 08-12-2023 ambulatory ISHMAEL SIMON [facility] Ambulatory Start: 08-10-2023 End: 08-10-2023 Subsequent hospital visit by physician Varsha Ultrasound 3 [facility] Comment on above: Localized swelling o n left hand; S/P placement of cardiac pacemaker Start: 08-10-2023 End: 08-10-2023 ambulatory [facility] Ambulatory Start: 08-10-2023 End: 08-10-2023 Office outpatient visit 25 minutes Amador Son MD Work Phone: [facility] Comment on above: Chronotropic incompe tence (Primary Dx); Abnormal stress test; Sinus bradycardia; Sick sinus syndrome (CMS/HCC); Essential hypertension, benign; BMI 34.0-34.9,adult; Current smoker Start: 08-05-2023 End: 08-05-2023 Subsequent hospital visit by physician Amador Son MD Work Phone: [facility] Comment on above: Sinus bradycardia (P rimary Dx); Chronotropic incompetence; Sick sinus syndrome (CMS/HCC); Other fatigue; Abnormal stress test; Dyspnea; Pacemaker Start: 07-22-2023 End: 07-22-2023 ambulatory [facility] Ambulatory Start: 07-22-2023 End: 07-22-2023 Encounter for preprocedural cardiovascular examination [facility] Ambulatory Start: 07-22-2023 End: 07-22-2023 Office outpatient new 60 minutes Amador Son MD Work Phone: [facility] Comment on above: Chronotropic incompe tence (Primary Dx); Sinus bradycardia; Establishing care with new doctor, encounter for; BMI 34.0-34.9,adult; Sick sinus syndrome (CMS/HCC); Simple chronic bronchitis (CMS/HCC); Current smoker; Other fatigue; Preoperative cardiovascular examination Start: 07-22-2023 End: 07-22-2023 Patient encounter status Amador Son MD Work Phone: [facility] Work Phone: Start: 07-13-2023 End: 07-13-2023 ambulatory [facility] Start: 07-13-2023 End: 07-13-2023 ambulatory [facility] Start: 04-13-2023 End: 04-13-2023 ambulatory ISHMAEL SIMON Not Available Start: 10-14-2022 ambulatory WILDER MIRELESMIBRYONY . Facility:[facility] Start: 09-14-2022 End: 09-14-2022 ambulatory WILDER MIRELESMIPATHY . Facility:[facility] Start: 08-31-2022 End: 09-01-2022 ambulatory NARENDRANATH LAKSHMIPATHY . Facility:[facility] Start: 08-04-2022 End: 08-05-2022 ambulatory NARENDRANATH LAKSHMIPATHY . Facility:[facility] Start: 07-23-2022 End: 08-07-2022 ambulatory NARENDRANATH LAKSHMIPATHY . Facility:[facility] Start: 07-20-2022 End: 07-21-2022 ambulatory NARENDRANATH LAKSHMIPATHY . Facility:[facility] Start: 07-15-2022 End: 07-16-2022 ambulatory AMINA CASSIDY . Facility:[facility] Start: 07-14-2022 Office outpatient vi sit 15 minutes Ishmael Simon Work Phone: [facility] 600 DO Work Phone: Start: [...] 02-16-2022 Chart Update Ishmael Simon Work Phone: [facility] 250 DO Work Phone: Start: 02-15-[address] Valentino Ty Facility:44 Start: 01-28-[address] Ishmael Simon Facility: Start: 01-28-2022 Office consultation new/estab patient 60 min Ishmael Simon Work Phone: [facility] 600 DO Work Phone: Start: 01-14-2022 End: 01-15-2022 ambulatory TERESO COLMENARES . Facility:[facility] Start: 01-01-2022 End: 01-02-[address] ISHMAEL SIMON Facility:[facility] Start: 12-15-2021 End: 12-15-[address] RICKY IBARRA . Facility:[facility] Start: 12-14-2021 Encounter for preprocedural laboratory examination DR RICKY IBARRA . [facility] Start: 12-12-2021 End: 12-13-[address] ISHMAEL [...] Start: 10-03-2020 End: 10-04-2020 ambulatory SIMONE RUIZ Facility:[facility] Start: 03-26-2020 End: 04-10-2020 ambulatory JEY ELISE Facility:[facility] Start: 03-14-2020 End: 03-15-2020 ambulatory JEY ELISE Facility:[facility] Procedures Date Procedure Procedure Detail Performing Clinician Start: 03-27-2024 MR lumbar spine wo con Ishmael Simon MD Work Phone: Start: 03-27-2024 XR pre/post mri xray Robert Simon MD Work Phone: Start: 02-14-2024 Rem interrog pm/ldls pm/ids <90 d tech review Amador Son MD Work Phone: Start: 09-26-2023 CARDIAC DEVICE CHECK - REMOTE NAIMAJAYJAY WRIGHT Start: 09-26-2023 CARDIAC DEVICE CHECK - REMOTE Amador Son MD Work Phone: Start: 08-10-2023 VASC US UPPER EXTREM ITY VENOUS DUPLEX LEFT NAIMA ADRIANA Start: 08-10-2023 Dup-scan xtr veins unilateral/limited study Naima Priest Adriana DIRECTOR OF KNOWLEDGE MANAGEMENT-PEST CONTROLLER Work Phone: Start: 08-05-2023 Radiologic exam ches t single view Ana M Kumari DIRECTOR OF KNOWLEDGE MANAGEMENT-PEST CONTROLLER Work Phone: Start: 08-05-2023 Ecg routine ecg w/le ast 12 lds trcg only w/o i&r Ana M Kumari DIRECTOR OF KNOWLEDGE MANAGEMENT-PEST CONTROLLER Work Phone: Start: 08-05-2023 Electrophysiology study Amador Son MD Work Phone: Start: 08-05-2023 Echo tthrc r-t 2d w/ wom-mode compl spec&colr d Ana M Angel APRN-PEST CONTROLLER Work Phone: Start: 08-05-2023 Ecg routine ecg w/le ast 12 lds trcg only w/o i&r Ana M Angel DIRECTOR OF KNOWLEDGE MANAGEMENT-PEST CONTROLLER Work Phone: Start: 08-05-2023 Basic metabolic pane l calcium total Ana M Angel DIRECTOR OF KNOWLEDGE MANAGEMENT-PEST CONTROLLER Work Phone: Start: 07-22-2023 CASE REQUEST EP LAB MINDI RHAF KARSON Start: 07-22-2023 AMB REFERRAL TO CARD [facility] ELECTROPHYSIOLOGY MOURHAF TRABOULSSI Start: 07-22-2023 ECG 12-LEAD MOURHAF TR ABOULSSI Start: 07-22-2023 Ecg routine ecg w/le ast 12 lds w/i&r Amador Son MD Work Phone: Start: 07-13-2023 HOLTER OR EVENT CARD IAC MONITOR VALENTINO TY Start: 07-13-2023 ECG 12-LEAD VALENTINO BAXTER Start: 05-07-[address] ISHMAEL CROUCH Comment on above: Performed By: #### V ITAD, PSASC #### [facility] [address] [address] [address] Britt Mendoza Start: 03-15-2020 ANESTH HIP ARTHROPLASTY SIMONE RUIZ Start: 03-15-2020 TOTAL HIP ARTHROPLASTY JEY ELISE Start: 03-14-2020 Antibody screen SIMONE BOLIVAR Comment on above: Performed By: #### 6 [id number] ####[facility] Start: 08-24-2019 Colonoscopy Ishmael faith MD Work Phone: Colonoscopy Ishmael Simon Work Phone: Excision of cyst Ishmael Cazares rer Work Phone: Hernia repair Ishmael Simon Work Phone: Operation on urinary system Ishmael Simon Work Phone: Surgical repair of u pper extremity Ishmael Simon Work Phone: Total replacement of hip Lillian Carterr Work Phone: Plan of Treatment Date Care Activity Detail Author Start: 08-23-2029 Screening for malignant neoplasm of colon [facility] Start: 08-04-2024 Creatinine measurement Creatinine Level [facility] Start: 08-04-2024 Echocardiography Echocardiogram [facility] Start: 08-04-2024 Potassium measurement Potassium Level [facility] Start: 06-13-2024 End: 06-13-2024 Patient encounter procedure 06/13/2024 9:10 AM EST Office Visit [place] [address] [place] [address] Valentino Ty MD [address] [facility], [address] [place] [address] [facility] Start: 05-25-2024 Urine screening for protein Diabetes: Urine Protein Screening [facility] Start: 05-23-2024 End: 05-23-2024 Patient encounter procedure [facility] Start: 05-17-2024 Glaucoma screening Diabetes: Retinopathy Screening [facility] Start: 04-24-2024 End: 04-24-2024 Patient encounter procedure 04/24/2024 11:00 AM EST Office Visit [facility] [address] [place] [address] Ishmael Simon MD [address] [place] [id number] [facility] Start: 04-10-2024 Hemoglobin A1c measurement Diabetes: Hemoglobin A1C [facility] Start: 01-08-2024 COVID-19 Vaccine ( season) COVID-19 Vaccine () [facility] Start: 01-08-2024 Influenza vaccination [facility] Start: 11-09-2023 End: 08-04-2024 Cardiac Device Check - In Clinic Cardiac Device Check - In Clinic Implantable Cardiac Device Routine Pacemaker Expected: 11/09/2023 (Approximate), Expires: 08/04/2024 [facility] Service Area Work Phone: Comment on above: Expected: 11/09/2023 (Approximate), Expi res: 08/04/2024 Start: 11-09-2023 End: 08-04-2024 XR Chest 2 Views XR chest 2 views Imaging Routine Pacemaker Expected: 11/09/2023, Expires: 08/04/2024 [facility] Work Phone: Comment on above: Expected: 11/09/2023, Expires: Start: 11-09-2023 End: 11-09-2023 Patient encounter procedure [facility] Start: 11-03-2023 End: 11-03-2023 Patient encounter procedure 11/03/2023 8:50 AM EDT Office Visit [address] [place] [address] Valentino Ty MD [facility] [facility], [address] [place] [address] [facility] Start: 08-12-2023 End: 08-12-2023 Clinical Support 08/12/2023 8:30 AM EDT Clinical Support [facility] [address] [place] [phone] [facility] Start: 08-10-2023 Subsequent hospital visit by physician 08/10/2023 2:09 PM EDT Hospital Encounter [facility] [address] [place] [address] Localized swelling on left hand; S/P placement of cardiac pacemaker [facility] Comment on above: Localized swelling on left hand; S/P placement of cardiac pacemaker Start: 07-22-2023 End: 07-21-2025 US Heart Transthoracic Transthoracic Echo Complete Echocardiography Routine Sinus bradycardia Chronotropic incompetence Sick sinus syndrome (CMS/HCC) Other fatigue Preoperative cardiovascular examination Expected: 07/22/2023 (Approximate), Expires: 07/21/2025 [facility] Work Phone: Comment on above: Expected: 07/22/2023 (Approximate), Expi res: 07/21/2025 Start: 07-13-2023 FUV, Provider: Valentino Ty, Status: Pen, Time: 8:30 AM FUV, Provider: Valentino Ty, Status: Pen, Time: 8:30 AM [facility] 600 DO Work Phone: Start: 01-07-2023 COVID-19 Vaccine ( season) COVID-19 Vaccine ( season) [facility] Start: 01-07-2023 Influenza vaccination Influenza Vaccine (#1) [facility] Start: 07-14-2022 FUV, Provider: Valentino Ty, Status: Pen, Time: 10:40 AM FUV, Provider: Valentino Ty, Status: Pen, Time: 10:40 AM [facility] 600 DO Work Phone: Start: 02-15-2022 STRESS JUICE, Provider: CARLITO KEANE NUCLEAR 01,[id number], Status: Pen, Time: 2:00 PM STRESS JUICE, Provider: CARLITO MCKEONI NUCLEAR 01,[id number], Status: Pen, Time: 2:00 PM [facility] 600 DO Work Phone: Start: 02-21-2014 Zoster Vaccines (1 of 2) Zoster Vaccines (1 of 2) [facility] Start: 02-21-1986 DTaP/Tdap/Td Vaccines (1 - Tdap) DTaP/Tdap/Td Vaccines (1 - Tdap) [facility] Start: 02-21-1983 Hepatitis B Vaccines (1 of 3 - 19+ 3-dose series) Hepatitis B Vaccines (1 of 3 - 19+ 3-dose series) [facility] Start: 02-21-1983 Urine screening for protein Diabetes: Urine Protein Screening [facility] Start: 02-21-1982 Diabetes mellitus screening Diabetes Screening [facility] Start: 02-21-1982 Hepatitis C screening Hepatitis C Screening [facility] Start: 02-21-1974 Diabetic foot examination Diabetes: Foot Exam [facility] Start: 02-21-1974 Glaucoma screening Diabetes: Retinopathy Screening [facility] Start: 02-21-1970 Pneumococcal Vaccine: Pediatrics (0 to 5 Years) and At-Risk Patients (6 to 64 Years) (1 - PCV) Pneumococcal Vaccine: Pediatrics (0 to 5 Years) and At-Risk Patients (6 to 64 Years) (1 - PCV) [facility] Start: 02-21-1970 Pneumococcal Vaccine: Pediatrics (0 to 5 Years) and At-Risk Patients (6 to 64 Years) (1 of 2 - PCV) Pneumococcal Vaccine: Pediatrics (0 to 5 Years) and At-Risk Patients (6 to 64 Years) (1 of 2 - PCV) [facility] Start: 02-21-1965 MMR Vaccines (1 of 1 - Standard series) MMR Vaccines (1 of 1 - Standard series) [facility] Start: 1964 COVID-19 Vaccine (#1) COVID-19 Vaccine (#1) [facility] Start: 1964 Creatinine measurement Creatinine Level [facility] Start: 1965 Echocardiography Echocardiogram [facility] Start: 1964 Hemoglobin A1c measurement Diabetes: Hemoglobin A1C [facility] Start: 1964 Hepatitis B Vaccines (1 of 3 - 3-dose series) Hepatitis B Vaccines (1 of 3 - 3-dose series) [facility] Start: 1964 HIV screening HIV Screening [facility] Start: 1964 Lipid panel Lipid Panel [facility] Start: 1964 Medicare Annual Wellness (AWV) Medicare Annual Wellness (AWV) [facility] Start: 1964 Medicare Annual Wellness Visit Medicare Annual Wellness Visit (AWV) [facility] Start: 1964 Potassium measurement Potassium Level [facility] Start: 1964 Screening for malignant neoplasm of colon [facility] End: 07-21-2024 Basic metabolic 2000 panel - Serum or Plasma Basic Metabolic Panel Lab Routine Sinus bradycardia Chronotropic incompetence Sick sinus syndrome (CMS/HCC) Other fatigue 1 Occurrences starting 07/22/2023 until 07/21/2024 [facility] Work Phone: Comment on above: 1 Occurrences starting 07/22/2023 until 07/21/2024 End: 07-21-2024 CBC panel - Blood by Automated count CBC Lab Routine Sinus bradycardia Chronotropic incompetence Sick sinus syndrome (CMS/HCC) Other fatigue 1 Occurrences starting 07/22/2023 until 07/21/2024 [facility] Work Phone: Comment on above: 1 Occurrences starting 07/22/2023 until 07/21/2024 ECG 12 lead STAT ECG 12 lead STA T ECG STAT 08/05/2023 12:30 PM EDT [facility] Service Area Work Phone: ECG 12 lead STAT ECG 12 lead STA T ECG STAT 08/05/2023 5:12 PM EDT [facility] Work Phone: PPM IMPLANT DC PPM IMPLANT DC S inus bradycardia Chronotropic incompetence Sick sinus syndrome (CMS/HCC) Other fatigue [facility] Work Phone: End: 07-21-2024 Prothrombin time (PT) Protime-INR Lab Routine Sinus bradycardia Chronotropic incompetence Sick sinus syndrome (CMS/HCC) Other fatigue 1 Occurrences starting 07/22/2023 until 07/21/2024 [facility] Service Area Work Phone: Comment on above: 1 Occurrences starting 07/22/2023 until 07/21/2024 Payers Date Payer Category Payer Self-pay 2023 Medicare HUMANA MEDICARE HUMANA GOLD CHOICE [id number] 2023-Present [id number] [place] [id number] 2023 Medicare (Managed Care) HUMANA M EDICARE ADVANTAGE [id number] 2023 Medicare [id number] 1964 Unknown [id number] 2..840.1.638360.3.579.2. 647 1964 Unknown [id number] 2840.1.465329.3.579.2. 647 1964 Unknown [id number] 2.840.1.786088.3.579.2. 647 1964 Unknown [id number] 2..840.1.865675.3.579.2. 1068 1964 Unknown [id number] 2.16.840.1.363695.3.579.2. 356 1964 Unknown [id number] 2.16.840.1.497327.3.579.2. 356 1964 Unknown [id number] 2.16.840.1.747069.3.579.2. 593 1964 Unknown [id number] 2.16.840.1.158257.3.579.2. 593 1964 Unknown [id number] 2.16.840.1.184022.3.579.2. 593 1964 Unknown [id number] 2.16.840.1.709895.3.579.2. 593 1964 Unknown [id number] 2.16.840.1.434243.3.579.2. 593 1964 Unknown [id number] 2.16.840.1.694811.3.579.2. 593 1964 Unknown [id number] 2.16.840.1.939187.3.579.2. 593 1964 Unknown [id number] 2.16.840.1.217223.3.579.2. 593 1964 Unknown [id number] 2.16.840.1.541405.3.579.2. 593 1964 Unknown [id number] 2.16.840.1.636890.3.579.2. 593 1964 Unknown [id number] 2.16.840.1.124609.3.579.2. 593 1964 Unknown [id number] 2.16.840.1.309366.3.579.2. 593 1964 Unknown [id number] 2.16.840.1.249487.3.579.2. 593 1964 Unknown [id number] 2.16.840.1.999551.3.579.2. 593 1964 Unknown [id number] 2.16.840.1.159247.3.579.2. 593 1964 Unknown [id number] 2.16.840.1.810868.3.579.2. 593 1964 Unknown [id number] 2.16.840.1.383613.3.579.2. 593 1964 Unknown [id number] 2.16.840.1.048733.3.579.2. 593 1964 Unknown [id number] 2.16.840.1.932005.3.579.2. 593 1964 Unknown [id number] 2.16.840.1.384094.3.579.2. 593 1964 Unknown [id number] 2.16.840.1.482265.3.579.2. 593 1964 Unknown [id number] 2.16.840.1.306842.3.579.2. 593 1964 Unknown [id number] 2.16.840.1.748615.3.579.2. 593 1964 Unknown [id number] 2.16.840.1.832417.3.579.2. 593 1964 Unknown [id number] 2.16.840.1.050917.3.579.2. 1244 1964 Unknown [id number] 2.16.840.1.278390.3.579.2. 1244 1964 Unknown [id number] 2.16.840.1.868611.3.579.2. 1244 1964 Unknown [id number] 2.16.840.1.019978.3.579.2. 1244 1964 Unknown [id number] 2.16.840.1.483541.3.579.2. 1244 1964 Unknown [id number] 2.16.840.1.578141.3.579.2. 1244 1964 Unknown [id number] 2.16.840.1.344209.3.579.2. 1259 1964 Unknown [id number] 2.16.840.1.886042.3.579.2. 1259 1964 Unknown [id number] 2.16.840.1.212407.3.579.2. 1259 1964 Unknown [id number] 2.16.840.1.262755.3.579.2. 1259 1964 Unknown [id number] 2.16.840.1.022121.3.579.2. 1246 1964 Unknown [id number] 2.16.840.1.610759.3.579.2. 1246 1964 Unknown [id number] 2.16.840.1.485231.3.579.2. 124 1964 Unknown [id number] 2.16.840.1.024819.3.579.2. 1246 1964 Unknown [id number] 2.16.840.1.453478.3.579.2. 1245 1964 Unknown [id number] 2.16.840.1.618732.3.579.2. 1246 1959 Medicaid [id number] 1960 Medicare [id number] Unknown [id number] Unknown Unknown O [employer] [id number] Unknown [id number] 2.16.840.1.674661.3.579.2. 531 Unknown [id number] 2.16.840.1.411637.3.579.2. 531 Social History Date Type Detail Facility Start: 07-13-2023 End: 10-09-2023 No alcohol use No alcohol use [facility] Comment on above: 1 pack daily; Start: 04-13-2023 End: 07-13-2023 Tobacco smoking status UTIS Smokes tobacco daily [facility] History of tobacco use Cigarette Smoker [facility] Work Phone: Start: 04-13-2023 End: 07-13-2023 Tobacco use and exposure Smokeless tobacco non-user [facility] Work Phone: Start: 07-22-2023 End: 02-06-2024 Alcohol intake Lifetime non-drinker (finding) [facility] Work Phone: Start: 07-13-2023 End: 10-09-2023 Tobacco use panel [facility] Start: 1965 Sex Assigned At Not on file [facility] Work Phone: Start: 07-12-2023 End: 08-10-2023 Exposure to SARS-CoV-2 (event) Not sure [facility] Frequency of Social Gatherings with Friends and Family Not on file [facility] Do you belong to any clubs or organizations such as taoism groups, unions, fraWinFreeCandy or athletic groups, or school groups? No [facility] Are you now , , , , never or living with a partner? Living with partner [facility] How often to you hav e a drink containing alcohol? Never [facility] Do you feel stress - tense, restless, nervous, or anxious, or unable to sleep at night because your mind is troubled all the time - these days [OSQ] Not at all [facility] (I/We) worried whebrittney er (my/our) food would run out before (I/we) got money to buy more. Never true [facility] Start: 07-06-2019 Tobacco smoking stat us NHIS Smoker (finding) [facility] Start: 03-17-2024 End: 03-28-2024 Sex Male (finding) [facility] Start: 1965 Sex Assigned At Male F [facility] Medical Equipment Procedure Code Equipment Code Equipment Origin al Text Equipment Identifier Dates Lead, Capsurefix Novus, 52 Cm - [id number] Start: 08-05-2023 Lead, Capsurefix Novus, 45 Cm - [id number] Start: 08-05-2023 Pacemaker, Dual Chamber, Kae Mri Xt - [id number] Start: 08-05-2023 Clinical Notes 08-31-2020 to [...] some point he had some evaluation in [place] that shows no significant obstructive coronary disease [...] night however but 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 No symptoms [...] Diagnosis Date Arrhythmia CHF (congestive heart failure) ([facility]) COPD (chronic obstructive pulmonary disease) ([facility]) Hypertension Social History Social History [...] breakfast cetirizine (ZYRTEC) 10 mg, oral, Nightly pgtptzqhzpf-yqbxgcugi-upyspafe (TRELEGY-ELLIPTA) 100-62.5-25 mcg blister with device 1 [...] prepare this document. documented in this encounter [facility] Work Phone: 08-10-2023 Instructions Vero Mccarthy [...] Amador Son MD documented in this encounter [facility] Work Phone: 08-05-2023 Nurse Note Patient discharge instructions reviewed with patient and , verbalized understanding. Lt chest dressing remains dry/intact, no hematoma, no ecchymosis. Patient able to teachback site care instructions, follow up appointments. IV x2 removed and patient discharged to home via w/c. [facility] 08-05-2023 Nurse Note Patient discharge instructions [...] and ice pack over site. Sterling from [employer] in room speaking to Pt and SO educating on home device monitor. Pt returned to room after echocardiogram. Denies needs at this time. documented in this encounter [facility] Work Phone: 08-05-2023 Nurse Note Patient sitting up in chair, denies any complaints of incisional pain. Lt upper chest incision remains dry/intact. Will begin discharge instructions. [facility] Work Phone: 08-05-2023 Nurse Note Patient ambulated to BR, gait steady. Pacer rep has already met with patient and . Lt upper chest dressing remains dry/intact. Lt arm in immobilizer and ice pack over site. [facility] Work Phone: 08-05-2023 Note Formatting of this n ote might be different from the original. Post EKG and CXR performed at bedside. Pt denies needs at this time. Left chest remains soft and stable with no hematoma or oozing. [facility] Work Phone: 08-05-2023 Miscellaneous Notes Post [...] discussed with patient. documented in this encounter [facility] Work Phone: 08-05-2023 Hospital Discharge instructions Ana M Kumari APRN-PEST CONTROLLER - 08/05/2023 5:00 PM EDT Images from [...] your arm above shoulder level. 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 There are [...] sent through Care Everywhere.Pacemaker Insertion Discharge Instructions (Zimbabwean)documented in this encounter [facility] Work Phone: 08-05-2023 Note Formatting of [...] Pt denies further needs at this time. [facility] Work Phone: 08-05-2023 Note Table formatting [...] of infection. The patient should call the human resource consultant immediately if symptoms recur, or for any [...] model number W1 DR 017 number [id number]. Right atrial lead [employer]onic 5076/45 serial number [id number] 8 mm [id number]. Imp (more content not included)... [id number] ER 08-05-2023 Note Formatting of this n ote might be different from the original. Sedation Plan ASA 2 Mallampati class: II. Risks, benefits, and alternatives discussed with patient. 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 No symptoms [...] breakfast cetirizine (ZYRTEC) 10 mg, oral, Nightly flrqxhhsroh-molrqjxvx-eaelerbr (TRELEGY-ELLIPTA) 100-62.5-25 mcg blister with device 1 [...] software was utilized to prepare this document. 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 No symptoms [...] breakfast cetirizine (ZYRTEC) 10 mg, oral, Nightly sxrdprasodr-fdofyvegq-ndrjailt (TRELEGY-ELLIPTA) 100-62.5-25 mcg blister with device 1 [...] prepare this document. documented in this encounter [facility] Work Phone: 08-05-2023 Nurse Note Sterling from [employer] in room speaking to Pt and SO educating on home device monitor. [facility] 08-05-2023 Nurse Note Pt returned to room after echocardiogram. Denies needs at this time. 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 No symptoms [...] breakfast cetirizine (ZYRTEC) 10 mg, oral, Nightly pkhhqzdcqkw-curtpgsxp-peljjudc (TRELEGY-ELLIPTA) 100-62.5-25 mcg blister with device 1 [...] prepare this document. documented in this encounter [facility] Work Phone: 07-22-2023 Instructions Jazz Flynn [...] AMADOR SON MD documented in this encounter [facility] Work Phone: 07-20-2022 Note CONSULTATION PROCEDURE [...] right medial portion of his leg. [facility] 05-07-2022 Note CONSULTATION CONSULTATION DATE: 05/07/2022 HISTORY [...] three months' time unless otherwise indicated. [facility] 01-14-2022 Note CONSULTATION CONSULTATION DATE: 01/14/2022 HISTORY [...] it was recommended that he see a tmd teacher, which he did do. He did a Holter monitor study and is following up with his tmd teacher on 01/28/2022. Current medications include gabapentin 300 [...] agrees with the plan of care. [facility] 11-19-2021 Note CONSULTATION CONSULTATION DATE: 11/19/2021 This [...] to S1. Activities such as standing, walking, cable weaver and evening hours, stairs, bending and physical [...] be followed up in the clinic post-procedure. [facility] Signed and Approved by: TERESO COLMENARES . 11/27/2021 14:13:00 [facility] 10-22-2021 Note CONSULTATION CONSULTATION DATE: 10/22/2021 [...] patient agrees with the plan of care. [facility] Signed and Approved by: TERESO COLMENARES . 11/04/2021 16:23:00 [facility] 10-01-2021 Note CONSULTATION CONSULTATION DATE: 10/01/2021 [...] shape. He has seen Dr. Nunn in [place] in the past regarding his back, and [...] Patient agrees with the plan of care. [facility] Signed and Approved by: TERESO COLMENARES . 10/08/2021 16:01:00 [facility] 08-31-2020 Note Microbiology PROCEDURE: Blood Culture [...] Locations R1: This test was performed at: [facility], [address] [place] [address], [address] [place] [address], [facility] Comment on above: Performed By: #### [id number] ####[address] [address] 08-31-2020 Note Microbiology PROCEDURE: Blood Culture Charcoal [...] Locations R1: This test was performed at: [facility], [address] [place] [address], [id number] [place] [address], [facility] Comment on above: Performed By: #### [id number] ####[address] [address] Evaluation note Diagnosis 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 Sinus bradycardia Other specified cardiac dysrhythmias Establishing care with new doctor, encounter for BMI 34.0-34.9,adult Sick sinus syndrome (CMS/HCC) Sinoatrial node dysfunction Simple chronic bronchitis (CMS/HCC) Simple chronic bronchitis Current smoker Other fatigue Preoperative cardiovascular examination Pre-operative cardiovascular examination documented in this encounter [facility] Work Phone: Evaluation note* Diagnosis Other [...] dysfunction Other fatigue documented in this encounter [facility] Work Phone: Evaluation note* Diagnosis Localized swelling on left hand S/P placement of cardiac pacemaker 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 Abnormal stress test Other nonspecific abnormal cardiovascular system function study Sinus bradycardia Other specified cardiac dysrhythmias Sick sinus syndrome (CMS/HCC) Sinoatrial node dysfunction Essential hypertension, benign BMI 34.0-34.9,adult Current smoker documented in this encounter [facility] Work Phone: Evaluation note* Diagnosis Localized swelling on left hand S/P placement of cardiac pacemaker documented in this encounter [facility] Work Phone: Evaluation note* Diagnosis Cardiac pacemaker in situ Sinoatrial node dysfunction (Multi) Sinoatrial node dysfunction documented in this encounter [facility] Work Phone: Evaluation note* Diagnosis Cardiac pacemaker in situ Sinoatrial node dysfunction (Multi) Sinoatrial node dysfunction documented in this encounter [facility] Work Phone: Evaluation note* Diagnosis Type 2 diabetes mellitus with hyperglycemia, without long-term current use of insulin (CMS/HCC)- Primary Essential hypertension, benign (CMS/HCC) Essential hypertension, benign Chronic diastolic heart failure (CMS/HCC) Chronic diastolic heart failure DDD (degenerative disc disease), lumbar Degeneration of lumbar or lumbosacral intervertebral disc Dyslipidemia (CMS/HCC) Other and unspecified hyperlipidemia Screening PSA (prostate specific antigen) Special screening for malignant neoplasm of prostate Encounter for long-term (current) use of medications Encounter for long-term (current) use of other medications Obesity (BMI 30-39.9) Primary osteoarthritis of right hip Type 2 diabetes mellitus with hyperglycemia, without long-term current use of insulin (CMS/HCC)- Primary Essential hypertension, benign (CMS/HCC) Essential hypertension, benign Chronic diastolic heart failure (CMS/HCC) Chronic diastolic heart failure DDD (degenerative disc disease), lumbar Degeneration of lumbar or lumbosacral intervertebral disc Primary osteoarthritis of right hip Chronic obstructive pulmonary disease, unspecified COPD type (CMS/HCC) Chronic pain of both shoulders Type 2 diabetes mellitus with other specified complication, without long-term current use of insulin (CMS/HCC) Vasculogenic erectile dysfunction, unspecified vasculogenic erectile dysfunction type Type 2 diabetes mellitus with diabetic peripheral angiopathy without gangrene, without long-term current use of insulin (CMS/HCC) Peripheral vascular disease, unspecified (I73.9) Peripheral vascular disease, unspecified Type 2 diabetes mellitus with hyperglycemia, without long-term current use of insulin (CMS/HCC)- Primary Essential hypertension, benign (CMS/HCC) Essential hypertension, benign Chronic diastolic heart failure (CMS/HCC) Chronic diastolic heart failure Chronic obstructive pulmonary disease, unspecified COPD type (CMS/HCC) DDD (degenerative disc disease), lumbar Degeneration of lumbar or lumbosacral intervertebral disc Primary osteoarthritis of right hip Body mass index (BMI) 35.0-35.9, adult Dysuria- Primary Acute prostatitis Pyuria Other nonspecific finding on examination of urine Degeneration of lumbar intervertebral disc Degeneration of lumbar or lumbosacral intervertebral disc documented in this encounter [facility] HealthcareEvaluation noteNo assessment information [facility] Work Phone: History of Present illness Narrative* Patient is here for cardiovascular evaluation for second opinion in regard to documents resting sinus bradycardia. The patient is 56-year-old with history of tobacco use and COPD was evaluated recently due to shortness of breath and his stress test showed questionable inferior wall ischemia. This led to a cardiac evaluation in [place] and its not clear to me whether [...] recent ischemic evaluation * 5 follow-up in [address] [place] [address] 600 DO Work Phone: History of Present illness Narrative* Patient is here for cardiovascular evaluation for second opinion in regard to documents resting sinus bradycardia. The patient is 56-year-old with history of tobacco use and COPD was evaluated recently due to shortness of breath and his stress test showed questionable inferior wall ischemia. This led to a cardiac evaluation in [place] and its not clear to me whether [...] ischemic evaluation * 5 follow-up in 6 [facility] Work Phone: History of Present illness Narrative* Patient is here for cardiovascular evaluation for second opinion in regard to documents resting sinus bradycardia. The patient is 56-year-old with history of tobacco use and COPD was evaluated recently due to shortness of breath and his stress test showed questionable inferior wall ischemia. This led to a cardiac evaluation in [place] and its not clear to me whether [...] ischemic evaluation * 5 follow-up in 6 [facility] Work Phone: History of Present [...] ischemic evaluation. He underwent cardiac catheterization in [place] which showed no significant obstructive disease * [...] EKG or earlier if the need arise [facility] 600 DO Work Phone: Summary Purpose Family [...] Patient condition does not warra nt discussion Advance Directive Response Recorded Date/ Time Advance Directives No June 4:40pm Chief Complaint LILIANA MICHAELS is being seen [...] Preoperative cardiovascular examination Procedures Transthoracic Echo Complete GA ECHO TTHRC R-T 2D W/WOM-MODE COMPL SPEC&COLR D Amador Son MD [address] [address] Referral ID Status Reason Start Date Expiration Date Visits Requested Visits Authorized [id number] Pending Review Perform Procedure 07/22/2023 07/21/2024 1 1 Specialty Diagnoses / Procedures Referred By Contac t Referred To Contact Diagnoses Sinus bradycardia Establishing care with new doctor, encounter for Procedures ECG 12 lead (Clinic Performed) Amador Son MD [address] [address] Referral ID Status Reason Start Date Expiration Date V isits Requested Visits Authorized [id number] Authorized 07/22/2023 07/21/2024 1 1 Specialty Diagnoses / Procedures Referred By Contac t Referred To Contact Radiology Diagnoses Pacemaker Procedures XR chest 2 views Ana M Kumari, DIRECTOR OF KNOWLEDGE MANAGEMENT-PEST CONTROLLER [address] [facility], [address] [address] Referral ID Status Reason Start Date Expiration Date Visits Requested Visits Authorized [id number] Authorized Perform Procedure 08/05/2023 08/04/2024 1 1 Specialty Diagnoses / Procedures Referred By Contac t Referred To Contact Cardiology Diagnoses Pacemaker Procedures Cardiac Device Check - In Clinic Ana M Kumari DIRECTOR OF KNOWLEDGE MANAGEMENT-PEST CONTROLLER [address] [facility], Adity[place] [address] [place] [id number] Referral ID Status Reason Start Date Expiration Date Visits Requested Visits Authorized [id number] Pending Review Perform Procedure 08/05/2023 08/04/2024 1 1 Specialty Diagnoses / Procedures Referred By Contac t Referred To Contact Cardiology Diagnoses Localized swelling on left hand S/P placement of cardiac pacemaker Procedures Vascular US upper extremity venous duplex left Naima Wright, DIRECTOR OF KNOWLEDGE MANAGEMENT-PEST CONTROLLER [address] [email or web address] [facility], [address] [place] [address] Referral ID Status Reason Start Date Expiration Date Visits Requested Visits Authorized [id number] Authorized Perform Procedure 08/09/2023 08/08/2024 1 1 Specialty Diagnoses / Procedures Referred By Contac t Referred To Contact Cardiology Diagnoses Cardiac pacemaker in situ Sinoatrial node dysfunction (Multi) Procedures Cardiac Device Check - Remote Amador Son MD [address] [facility] [address] [place] [address] Referral ID Status Reason Start Date Expiration Date Visits Requested Visits Authorized [id number] Pending Review Perform Procedure 08/08/2023 08/07/2024 1 1 Chief Complaint and Reason for Visit Chief Complaint Admit Date mri clearance March 16, 2024 7 :56am Chief Complaint Admit Date mri clearance March 16, 2024 7 :56am lumbar ddd March 27, 2024 7:28am Additional Source Comments (unrecognized sect ion and content) No Status Records FoundNo Status Records FoundNo Status Records FoundNo Status Records FoundNo Status Records FoundNo Status Records FoundNo Status Records FoundNo Status Records FoundNo Status Records FoundNo Status Records Found INFORMATION SOURCE (unrecogn ized section and content) DATE CREATED AUTHOR 03/06/2021 [facility] DATE CREATED AUTHOR AUTHOR'S ORGANIZ ATION 03/12/2021 [facility] DATE CREATED AUTHOR AUTHOR'S ORGANIZ ATION 02/16/2022 [facility] DATE CREATED AUTHOR AUTHOR'S ORGANIZ ATION 07/16/2022 [facility] Center DATE CREATED AUTHOR AUTHOR'S ORGANIZ ATION 07/16/2022 [employer] DATE CREATED AUTHOR AUTHOR'S ORGANIZ ATION 09/17/2022 [facility] pital DATE CREATED AUTHOR AUTHOR'S ORGANIZ ATION 11/10/[address] [facility] DATE CREATED AUTHOR AUTHOR'S ORGANIZ ATION 02/07/2024 [facility] EPIC DATE CREATED AUTHOR AUTHOR'S ORGANIZ ATION 03/04/2024 [facility] DATE CREATED AUTHOR AUTHOR'S ORGANIZ ATION 04/03/2024 [facility] Reason for Visit (unrecogniz ed section and content) Reason Comments New Patient Visit Pt is here today as a new patient from Dr. Ty Specialty Diagnoses / Procedures Referred By Isela mckay Referred To Contact Cardiology Diagnoses Sinus bradycardia Valentino Ty MD [address] [facility], [address] [place] [address] Amador Son MD [address] [facility], [facility] [address] [place] [address] Referral ID Status Reason Start Date Expiration Date Visits Requested Visits Authorized [id number] Authorized Specialty Services Required 07/15/2023 07/14/2024 1 1 Specialty Diagnoses / Procedures Referred By Isela mckay Referred To Contact Diagnoses Sinus bradycardia Chronotropic incompetence Sick sinus syndrome (CMS/HCC) Other fatigue Sinus bradycardia [R00.1] Chronotropic incompetence [I45.89] Sick sinus syndrome (CMS/HCC) [I49.5] Other fatigue [R53.83] Procedures GA INS NEW/RPLCMT PRM PM W/TRANSV ELTRD ATRIAL&VENT PPM IMPLANT DUAL Amador Son MD [address] [facility] [address] [place] [address] [facility] [address] [place] [address] Referral ID Status Reason Start Date Expiration Date Visits Re quested Visits Authorized [id number] 1 1 Reason Comments Wound Check Patient is having sw elling in his right hand Specialty Diagnoses / Procedures Referred By Isela mckay Referred To Contact Cardiology Diagnoses Localized swelling on left hand S/P placement of cardiac pacemaker Procedures Vascular US upper extremity venous duplex left Naima Wright APRN-SHE [address] [facility], [facility] [address] [place] [address] Referral ID Status Reason Start Date Expiration Date Visits Requested Visits Authorized [id number] Authorized Perform Procedure 08/09/2023 08/08/2024 1 1 Specialty Diagnoses / Procedures Referred By Contac t Referred To Contact Cardiology Diagnoses Cardiac pacemaker in situ Sinoatrial node dysfunction (Multi) Procedures Cardiac Device Check - Remote Amador Son MD [address] [address] Referral ID Status Reason Start Date Expiration Date Visits Requested Visits Authorized [id number] Pending Review Perform Procedure 08/08/2023 08/07/2024 1 1 Reason Onset Date Comments Med Refill 03/01/2024 Reason Onset Date Comments Med Refill 03/30/2024 Care Teams (unrecognized sec tion and content) Shell Reprint Operator Relationship Specialty Start Date End Date Ishmael Simon MD [address] [place] [address] PCP - General Family Medicine 06/29/23 Shell Reprint Operator Relationship Specialty Start Date End Date Ishmael Simon MD [address] [place] [address] PCP - General Family Medicine 06/29/23 Shell Reprint Operator Relationship Specialty Start Date End Date Ishmael Simon MD [address] [place] [address] PCP - General Family Medicine 06/29/23 Shell Reprint Operator Relationship Specialty Start Date End Date Ishmael Simon MD [address] [place] [address] PCP - General Family Medicine 06/29/23 Shell Reprint Operator Relationship Specialty Start Date End Date Ishmael Simon MD PCP - General Family Medicine 06/29/23 Shell Reprint Operator Relationship Specialty Start Date End Date Ishmael Simon MD [address] [place] [address] PCP - General Family Medicine 06/29/23 Naima Wright, DIRECTOR OF KNOWLEDGE MANAGEMENT-PEST CONTROLLER [address] [facility] Office [facility]ld[facility], [place] [place] [address] Nurse Practitioner Cardiology 11/07/23 Shell Reprint Operator Relationship Specialty Start Date End Date Ishmael Simon MD [address] [place] [address] PCP - General Family Medicine 10/10/23 Team Status: Active Member Role Status Dates Ishmael Simon MD Primary Care Provider Active Team Status: Active Member Role Status Dates Ishmael Simon MD Primary Care Provider Active S tart: March 16, 2024 LUKAS Burns Other Provider Active Start: March 16, 2024 Renetta Mills MD Attending Provider Active Start: March 16, 2024 Team Status: Inactive Member Role Status Dates Ishmael Simon MD Primary Care Provider Active S tart: March 27, 2024 End: March 27, 2024 LUKAS Burns Attending Provider Active St art: March 27, 2024 End: March 27, 2024 Scheduled Active and Recently Administ ered Medications [...] (Due: Stopped - Provider: Ana M Kumari, DIRECTOR OF KNOWLEDGE MANAGEMENT-PEST CONTROLLER) sodium chloride 0.9% infusion (CANCELED) 20 mL/hr, intravenous, Continuous, Starting on Tue08/05/23 at 1230, Preprocedure, call or contact centre operator to EP lab 1221 ([facility] - Prov ider: Lexi Araiza RN)[phone] (Due: Stopped - Provider: Ana M Kumari APRN-PEST CONTROLLER) PRN Medication Order 08/03/2023 08/04/2023 08/05/2023 acetaminophen [...] pain scores based on patient preference? Yes Goals (unrecognized section and content) Goals may be documented in a n alternate sectionGoals may be documented in an alternate section FOR RECORDS PERTAINING TO PATIENTS WHO ARE [...] BE BASED ON THE PRIMARY CLINICAL RECORDS. [employer] provides no warranty or guarantee of the accuracy or completeness of information in this document.
== END 2024-04-10 11:24 | disposition home or self-care (01) ==
LOC: PM 11:24
PROVIDERS: PCP Family Medicine; Visit Provider Nurse Practitioner
DX: M54.16 Radiculopathy, lumbar region (principal); M79.18 Myalgia, other site; G89.4 Chronic pain syndrome
CPT/HCPCS: G0463

== ENCOUNTER 2024-04-16 10:27 | Day surgery (SDC) | payer MEDICARE, SELFPAY ==
[2024-04-16 11:17] VITALS: BP 140/90; PULSE 64; TEMP 36.2; O2SAT 95
[2024-04-16 11:43] VITALS: BP 134/97; BP 153/84; PULSE 77; PULSE 86; O2SAT 91; O2SAT 92
[2024-04-16] MEDS: 0.9 % SODIUM CHLORIDE 10 ML SYRINGE - SALINE FLUSH INJ (11:47)
[2024-04-16] MEDS: BUPIVACAINE HCL 0.25% PF 25 MG/10 ML VIAL INJ (11:47)
[2024-04-16] MEDS: DEXAMETHASONE SOD PHOS 10 MG/ML VIAL INJ (11:48)
[2024-04-16] MEDS: IOHEXOL 240 MG/ML - 10 ML VIAL 12 MG INJ (11:48)
[2024-04-16] MEDS: LIDOCAINE HCL 2% 400 MG/20 ML MDV 3 ML INJ (11:48)
--- NOTE | 2024-04-16 11:48 | P.ON_ITS ---
Date of procedure: 04/16/24 Pre-op diagnosis: Pain due to lumbar stenosis with neurogenic claudication Post-op diagnosis: same as pre-op Procedure: Procedure: Right L2-3, L3-4 transforaminal epidural steroid injection Medications: Bupivacaine 0.25% 2cc, lidocaine 2% 1cc, dexamethasone 10mg The patient was seen and examined in the preoperative holding area.? Informed consent was obtained and placed on the chart.? Patient was brought to the medical procedure unit and placed in the prone position where a timeout was completed verifying the correct patient, procedure site, position, and planned special equipment using sterile aseptic technique.? Under direct fluoroscopic visualization a 25-gauge Quincke tipped spinal needle was advanced to the designated neural foramen where contrast dye was injected to show adequate spread.? The needle was inserted at level right L2-3. There was no evidence of vascular or adverse uptake.? Epidural spread was appreciated.? The above- mentioned injectate was then placed in a 1.5 mL aliquot preceded by negative aspiration.? The needle was removed. The needle was inserted and the procedure repeated at level right L3-4.? The surgery site was covered.? Patient was taken to the postprocedural recovery area and monitored for an appropriate length of time before found suitable for discharge in the accompaniment of a responsible adult. Anesthesia: Local Surgeon: Jong Reyes Pathology: none sent Condition: stable Disposition: no change
== END 2024-04-16 11:48 | disposition home or self-care (01) ==
LOC: SURGOUT 10:27
PROVIDERS: PCP Family Medicine; Visit Provider Anesthesiology
DX: M48.062 Spinal stenosis, lumbar region with neurogenic claudication (principal)
CPT/HCPCS: 64483; 64484; J0665; J1100; Q9966

== ENCOUNTER 2024-04-24 11:52 | Outpatient (OUT) | payer MEDICARE, SELFPAY ==
--- OUTSIDE RECORDS SUMMARY | 2024-04-24 12:04 | XMS_ITS | CCD ---
Author Organization [facility] Care Team Providers Care Chief Clinical Officer Name Role Phone SIMONE RUIZ Admitting Unavailable SIMONE RUIZ Attending Unavailable ISHMAEL SIMON Referring Unavailable ISHMAEL SIMON Primary Care Unavailable JEY ELISE Attending Unavailable JEY ELISE R Surgeon Unavailable [place] Procedure Practitioner Unavailab ISHMAEL Campoverde Primary Care [...] DR ISHMAEL Rae Primary Care Unavailable NASRA, HOAGN Consulting Unavailable IBARRA ., DR RICKY Bateman [...] DR ISHMAEL Rae Admitting Unavailable NADERER, DR ISHMEAL Rae Primary Care Unavailable COLMENARES ., TERESO Consulting Unavailable IBARRA ., DR RICKY Bateman Attending Unavailable IBARRA ., DR RICKY Bateman Admitting Unavailable SAMSA ., AMINA Attending Unavailable WEST, DR BATSHEVA Huertas Consulting Unavailable NADERER, DR ISHMAEL Rea Primary Care Unavailable SAMSA ., AMINA Admitting [...] e VALENTINO TY Referring Unavailable NADERER, ISHMAEL [place] Primary [facility] Unavailabl e SON, AMADOR N Attending Unavailable NADERER, [facility] Care Unavailabl e BETHANY TYF Referring Unavailable SON, AMADOR N Attending Unavailable NADERER, [facility] Primary Care Unavailabl e NADERER, [facility] Primary Care Unavailabl e ADRIANA, NAIMA E Attending Unavaila ble NADERER, ISHMAEL [place] Primary Care Unavailabl e NADERER, ISHMAEL Attending Unavailable NADERER, ISHMAEL Attending Unavailable NADERER, ISHMAEL Attending Unavailable NADERER, ISHMAEL Attending Unavailable Naderer Ishmael LANEony Primary Care Provider Adriana UNIT LEADER-PASSENGER BOOKING CLERK, Naima E Unavailable Ishmael Simon MD [facility] Care Provider [phone] EARL WRIGHTCI E Referring Unavaila ble NADERER, ISHMAEL [place] Primary [facility] Unavailabl e SON, AMADOR N Referring Unavailable NADERER, [facility] Unavailabl e ANA M KUMARI Referring Unavailable NADERER, [facility] Unavailabl e ANA M KUMARI Referring Unavailable NADERER, [facility] Unavailabl e SON, AMAODR N Referring Unavailable NADERER, [facility] Unavailabl e SON, AMADOR N Referring Unavailable NADERER, [facility] Unavailabl e Raulr Ishmael LANE Primary Care Provider Danielle Contreras Attending Provider Danielle Bergeron Attending Unavailable RaulrIshmael Primary Care Unavailable Danielle Bergeron Admitting Unavailable Danielle Bergeron Attending Unavailable Chloeerer, [facility] Primary [facility] Unavailable Danielle Bergeron Admitting Unavailable Medications Current [...] 11/30/2024 Active baclofen 10 mg oral tablet (6 sources) gamma-Aminobutyric Acid-ergic Agonist Start: 01-27-2023 take 0.5-1 tablets by mouth twice daily baclofen (Lioresal) 10 mg tablet TAKE 1/2 TO 1 TABLET BY MOUTH TWICE A DAY 10/24/2023 Active cetirizine hydrochloride 10 mg oral tablet (17 sources) Histamine-1 Receptor Antagonist Start: 11-28-2023 take 1 tablet by mouth once daily cetirizine (ZyrTEC) 10 MG tablet Indications: Allergic rhinitis due to pollen TAKE 1 TABLET BY MOUTH EVERY DAY 90 tablet 3 11/28/2023 Active take 1 tablet by mindi th once daily at bedtime cetirizine (ZyrTEC) 10 mg tablet Take 1 tablet (10 mg) by mouth once daily at bedtime. Active cholecalciferol 0.05 mg oral tablet (6 [...] 90 Refills: 0 Ordered: 28-Jan-2022 DO Active Intuuufnmsv-Ollrutihn-Jmnwtb er (19 sources) Anticholinergic, Corticosteroid, beta2-Adrenergic Agonist Start: 07-06-2019 Rztptgsipue-Xcrocdvjz-Hsquqv er (Trelegy Ellipta) 100-62.5-25 mcg blister with device Active 1 MCG INHALATION As Directed July 06, 2019 12:00am take 1 dose by inhal ation in the morning Mgtzxagzmur-Aubiugkzd-Dtnbga (Trelegy El lipta) 100-62.5-25 MCG/ACT aerosol powder Inhale 1 Dose in the morning. Active fluticasone-umec lidin-vilanter (TRELEGY-ELLIPTA) 100-62.5-25 mcg blister with device Inhale 1 puff. Use as directed Active furosemide 40 mg oral tablet (20 sources) Loop Diuretic Start: 06-23-2018 take 1 [...] 2018 12:19pm gabapentin 300 mg oral capsule (19 sources) Anti-epileptic Agent Start: 07-06-2019 take 1 capsule by mouth once daily at bedtime gabapentin (Neurontin) 300 MG capsule Indications: Other intervertebral disc degeneration, lumbar region , Degeneration of lumbar or lumbosacral intervertebral disc TAKE 1 CAPSULE BY MOUTH EVERYDAY AT BEDTIME 30 capsule 2 02/03/2024 Active montelukast 10 mg oral tablet (19 sources) Leukotriene Receptor Antagonist Start: 07-06-2019 take 1 tablet by mouth before mealtime Montelukast 10 mg tablet Active 10 MG PO Before meals July 06, 2019 12:00am nabumetone 500 mg oral tablet (19 sources) Nonsteroidal Anti-inflammatory Drug Start: 07-06-2019 take [...] omeprazole 40 mg delayed release oral capsule (19 sources) Proton Pump Inhibitor Start: 12-13-2023 take [...] MG PO Daily June 19, 2018 12:00am take 1 capsule by [facility] once daily omeprazole (PriLOSEC) [address] capsule Take 1 capsule (40 mg) by mouth once daily. Active 2 ml ondansetron 2 mg/ml injection (1 source) Serotonin-3 Receptor Antagonist Start: 08-05-2023 take 4 mg intravenously every eight hours as needed ondansetron (Zofran) injection 4 mg oxygen (O2) gas therapy (10 sources) oxygen (O2) gas therapy 2l at [...] or milk spironolactone 50 mg oral tablet (20 sources) Aldosterone Antagonist Start: 06-23-2018 Spironolactone (Aldactone) 50 mg Tablet Active 25 MG PO Daily June 23, 2018 12:18pm Start: 06-19-2018 End: [...] mindi th every six hours as needed oxyCODONE-acetaminophen (Percocet) 7.5-3 25 mg tablet Take 1 tablet by mouth every 6 hours if needed for severe pain (7 - 10). 03/30/2021 Active Start: 06-19-2018 End: 06-22-2018 take 1 tablet by mouth every four to six hours as needed for pain Oxycodone-Acetaminophen 5-325 mg Tablet Discontinued 1 TAB PO EVERY 4-6 HOURS as needed for Pain June 19, 2018 12:00am June 22, 2018 9:37am 200 actuat albuterol 0.09 mg/actuat dry powder inhaler (14 sources) beta2-Adrenergic Agonist Start: 06-23-2018 End: 10-21-2018 [...] Discontinued 10 MG PO Three times daily 01 09September 14, 2018 11:00pm July 06, 2019 12:12am [...] chloride 9 mg/ml injection (2 sources) Start: 024 End: sodium chloride 0.9% infusion tamsulosin hydrochloride 0.4 mg oral capsule (2 sources) alpha-Adrenergic Prudencio Start: 019 End: take 1 capsule by mouth once daily Tamsulosin (Flomax) 0.4 mg Capsule Discontinued 0.4 MG PO Daily June 19, 2018 12:00am July 06, 2019 12:08am tiotropium 0.018 mg inhalation powder (2 sources) Anticholinergic Start: End: take 1 capsule by inhalation once daily Tiotropium Amidon (Spiriva With Handihaler) 18 mcg capsule, w/inhalation [...] 07-13-2023 07-22-2023 Chronic Congestive heart failure; nonhypertensive (15 sources) Chronic diastolic heart failure; Translations: [Chronic diastolic (congestive) heart failure] Onset: 04-13-2023 Resolved: 12-01-2023 07-22-2023 Chronic Diabetes mellitus with complications (13 sources) Type 2 diabetes mellitus with hyperglycemia; Translations: [Type 2 diabetes mellitus] Onset: 05-13-2022 07-22-2023 Chronic Disorders of lipid metabolism (3 sources) Hyperlipidemia, unspecified; Translations: [Dyslipidemia] Onset: 05-13-2022 04-13-2023 Chronic Essential hypertension (19 sources) Essential (primary) hypertension; Translations: [Benign essential [...] Chronic Other nutritional; endocrine; and metabolic disorders (14 sources) Body mass index 30+ - obesity; [...] limb] 08-10-2023 Episodic Peripheral and visceral atherosclerosis (15 sources) Peripheral vascular disease; Translations: [Peripheral vascular disease, unspecified] Onset: 04-13-2023 07-22-2023 Chronic Residual codes; unclassified (14 sources) Obstructive sleep apnea syndrome; Translations: [Obstructive [...] dysrhythmias] Onset: 01-01-2022 Episodic Malaise and fatigue (14 sources) Fatigue; Translations: [Other fatigue] Onset: 07-22-2023 07-22-2023 Episodic Other aftercare (1 source) 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; Translations: [OTH HALF-WAY CURRENT DRUG THERAPY] Onset: 05-13-2022 Episodic Other aftercare (2 sources) Long-term current use of drug therapy; Translations: [Other intermediate (current) drug therapy] Onset: 04-13-2023 04-13-2023 Episodic Other connective tissue disease (1 source) Other muscle spasm; Translations: [OTHER MUSCLE SPASM] Onset: 05-13-2022 Episodic Other lower respiratory disease (16 sources) Dyspnea; Translations: [Other respiratory abnormalities] Onset: 05-23-2023 05-23-2023 Episodic Other lower respiratory disease (4 sources) Pleurodynia; Translations: [PLEURODYNIA] Onset: 10-01-2021 Episodic Other lower respiratory disease (2 sources) Other forms of dyspnea; Translations: [Other forms of dyspnea] Onset: 05-23-2023 Episodic Other lower respiratory disease (1 source) Dyspnea on exertion; Translations: [Other forms of dyspnea] 11-09-2023 Episodic Other non-traumatic joint disorders (2 sources) [...] W/AND (SUSP) EXPOS COVID-19] Onset: 04-12-2022 Unclassified (10 sources) Onset: 07-13-2023 Resolved: 08-10-2023 07-13-2023 Results Test Name Value Interpretation Reference Range Facility Magnetic resonance imaging r eportOrdered By: Germán Murphy on 03-27-2024 Study report [facility] [address] [place] [place] [address] MRI Report Signed Patient: Liliana Michaels JR MR#: [id number] : 1965 Acct:[id number] Age/Sex: 59 / M ADM Date: 4 Loc: MR Room: Type: [facility] Attending Dr: Danielle GAYTAN Copies to: LUKAS Burns~ Ordering Provider: LUKAS Burns Date of Service: 03/27/24 MR/MR lumbar spine wo con: LUMBAR DDD ([id number]) XR/XR pre/post mri xray: LUMBAR DDD MRI [...] Murphy Jr., D.OAtiya03/27/2024 11:57 AM Dictation Location: [place] [address] Transcribed By: [facility] 03/27/24 1157 Dictated By: Germán Murphy Jr, DO 03/27/24 1148 Signed By: 03/27/24 1157 [facility] XR pre/post mri xrayon 03-27 XR pre/post mri xray [facility] [address] [place] [address] MRI Report Signed Patient: Liliana Michaels JR MR#: [id number] : 1965 Acct:[id number] Age/Sex: 59 / M ADM Date: 03/27/24 Loc: MR Room: Type: [facility] Attending Dr: Danielle GAYTAN Copies to: LUKAS Burns Ordering Provider: LUKAS Burns Date of Service: 03/27/24 MR/MR lumbar spine wo con: LUMBAR DDD ([id number]) XR/XR pre/post mri xray: LUMBAR DDD MRI [...] Murphy Jr., D.O.03/27/2024 11:57 AM Dictation Location: [place] [address] Transcribed By: [facility] 03/27/24 1157 Dictated By: Germán Murphy Jr, DO 03/27/24 1148 Signed By: 03/27/24 1157 Normal [facility] XR chest 2V*on 03-16-2024 XR chest 2V* [facility] [address] [place] [address] XRay Report Signed Patient: Liliana Michaels JR MR#: [id number] : 1965 Acct:[id number] Age/Sex: 59 / M ADM Date: 03/16/24 Loc: [facility] Room: Type: [facility] Attending Dr: Danielle GAYTAN Copies to: LUKAS [...] Elia Rodrigez M.D.03/16/2024 8:54 AM Dictation Location: [place] [address] Transcribed By: [facility] 03/16/24853 Dictated By: Elia Rodrigez DO 03/16/24 0849 Signed By: 03/16/24 0854 Normal [facility] Cardiac Device Check - Remot neeta 02-14-2024 [facility] Work Phone: Radiology Study observation (narrative) [facility] Work Phone: XR CHEST 2 VIEWSon 4 XR CHEST 2 VIEWS Interpreted By: Sancho Gross, STUDY: XR CHEST 2 VIEWS; 11/09/2023 9:46 am INDICATION: Signs/Symptoms:Pacem marilyn. COMPARISON: 08/05/2023 ACCESSION NUMBER(S): [id number] ORDERING CLINICIAN: ANA M KUMARI FINDINGS: Left-sided pacemaker in place. CARDIOMEDIASTINAL SILHOUETTE: Cardiomediastinal silhouette is normal in size and configuration. LUNGS: Lungs are clear. ABDOMEN: No remarkable upper abdominal findings. BONES: No acute osseous changes. IMPRESSION: 1. No evidence of acute cardiopulmonary process. MACRO: None Signed by: Sancho Gross 11/10/2023 8:35 AM Dictation workstation: [id number] [facility] Comment on above: Order Comment: Repor t to [facility] registration on 11/09/2023 at 8:30 AM for chest x-ray and device check prior to appointment with Dr. Son at 10 AM Cardiac Device Check - Remot neeta 09-26-2023 [facility] Work Phone: Radiology Study observation (narrative) [facility] Work Phone: US.doppler Upper extremity v eilillian - tiff 08-10-2023 Exam negative for acute deep venous thrombosis in the left upper extremity MACRO: None Signed by: Simone Ramos 08/10/2023 3:07 PM Dictation workstation: [id number] [facility]AL Interpreted By: Simone Ramos, STUDY: [facility] US UPPER EXTREMITY VENOUS DUPLEX LEFT; 08/10/2023 2:47 pm INDICATION: Signs/Symptoms: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 COMPARISON: Portable chest 05 August 2023 ACCESSION NUMBER(S): [id number] ORDERING CLINICIAN: NAIMA WRIGHT TECHNIQUE: Vascular ultrasound [...] - 08/10/2023 Interpreted By: Simone Ramos, STUDY: [facility] US UPPER EXTREMITY VENOUS DUPLEX LEFT; 08/10/2023 2:47 pm INDICATION: Signs/Symptoms: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 COMPARISON: Portable chest 05 August 2023 ACCESSION NUMBER(S): [id number] ORDERING CLINICIAN: NAIMA WRIGHT TECHNIQUE: Vascular ultrasound [...] Simone Ramos 08/10/2023 3:07 PM Dictation workstation: [id number] [facility] Work Phone: Radiology Study observation (narrative) [facility] Work Phone: US.doppler Upper extremity v ein - leftOrdered By: Simone Ramos on 08-10-2023 [facility] Work Phone: VASC US UPPER EXTREMITY VENO US DUPLEX LEFTon 08-10-2023 VASC US UPPER EXTREMITY VENOUS DUPLEX LEFT Interpreted By: Simone Ramos, STUDY: VASC US UPPER EXTREMITY VENOUS DUPLEX LEFT; 08/10/2023 2:47 pm INDICATION: Signs/Symptoms: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 COMPARISON: Portable chest 05 August 2023 ACCESSION NUMBER(S): [id number] ORDERING CLINICIAN: NAIMA WRIGHT TECHNIQUE: Vascular ultrasound [...] Simone Ramos 08/10/2023 3:07 PM Dictation workstation: [id number] [facility] Basic metabolic 2000 panelon 08-05-2023 Anion gap [Moles/Vol] 12 mmol/L 10 - 2 0 mmol/L [facility] Calcium [Mass/Vol] 9.6 mg/dL 8.6 - 10. 3 mg/dL [facility] Chloride [Moles/Vol] 102 mmol/L 98 - 10 7 mmol/L [facility] CO2 [Moles/Vol] 29 mmol/L 21 - 32 mmol/L [facility] Creatinine [Mass/Vol] 1.12 mg/dL 0.50 - 1.30 mg/dL [facility] GFR/1.73 sq M.predicted among non-blacks MDRD (S/P/Bld) [Vol rate/Area] 76 mL/min/{1.73_m2} - PINF [facility] Comment on above: Calculations of yang mated GFR are performed using the 2020 CKD-EPI Study Refit equation without the race variable for the IDMS-Traceable creatinine methods. https://jasn.asnjournals.org/content//ASN.2020 993759 Glucose [Mass/Vol] 95 mg/dL 74 - 99 mg/dL [facility] Interpretation and review of laboratory results Normal [facility] Potassium [Moles/Vol] 4.0 mmol/L 3.5 - 5.3 mmol/L [facility] Sodium [Moles/Vol] 139 mmol/L 136 - 145 mmol/L [facility] Urea nitrogen [Mass/Vol] 17 mg/dL 6 - 23 mg/dL [facility] Anion gap [Moles/Vol] 12 mmol/L Normal 10-20 [facility] Comment on above: Performed By: #### 2 4321-2 #### JAIMEE QURESHI ([id number]) [facility] ([facility]) [address] [place] [address] Calcium [Mass/Vol] 9.6 mg/dL Normal 8.6-10.3 [facility] Comment on above: Performed By: #### 2 4321-2 #### JAIMEE QURESHI (10961) [facility] ([facility]) [address] [place] [address] Chloride [Moles/Vol] 102 mmol/L Normal 98-107 [facility] Comment on above: Performed By: #### 2 4321-2 #### JAIMEE QURESHI (46035) [facility] ([facility]) [address] [place] [address] CO2 [Moles/Vol] 29 mmol/L Normal 21-32 [facility] Comment on above: Performed By: #### 2 4321-2 #### JAIMEE QURESHI ([id number]) [facility] ([facility]) [address] [place] [address]897 Creatinine [Mass/Vol] 1.12 mg/dL Normal 0.50-1.30 [facility] Comment on above: Performed By: #### 2 4321-2 #### JAIMEE QURESHI ([id number]) [facility] ([facility]) [address] [place] [address]707 Glomerular filtration rate/1.73 sq M.predicted 76 mL/min/1.73m*2 Normal >60 [facility] Comment on above: Result Comment: Calc ulations of estimated GFR are performed using the 2020 CKD-EPI Study Refit equation without the race variable for the IDMS-Traceable creatinine methods. https://jasn.asnjournals.org/content//ASN.2020 228634 Performed By: #### 2 4321-2 #### JAIMEE QURESHI ([id number]) [facility] ([facility]) [address] [place] [address]45 Glucose [Mass/Vol] 95 mg/dL Normal 74-99 [facility] Comment on above: Performed By: #### 2 4321-2 #### JAIMEE QURESHI (19977) [facility] ([facility]) [address] [place] [address]600 Potassium [Moles/Vol] 4.0 mmol/L Normal 3.5-5.3 [facility] Comment on above: Performed By: #### 2 4321-2 #### JAIMEE QURESHI (93652) [facility] ([facility]) [address] [place] [address] Sodium [Moles/Vol] 139 mmol/L Normal 136-145 [facility] Comment on above: Performed By: #### 2 4321-2 #### JAIMEE QURESHI (49070) [facility] ([facility]) [address] [place] [address] Urea nitrogen [Mass/Vol] 17 mg/dL Normal 6-23 [facility] Comment on above: Performed By: #### 2 4321-2 #### JAIMEE QURESHI ([id number]) [facility] ([facility]) [address] [place] [address]122 CBC panel Auto (Bld)on 08-04 Erythrocyte distribution width (RBC) [Ratio] 13.0 % 11.5 - 14.5 % [facility] Hematocrit (Bld) [Volume fraction] 46.9 % 41.0 - 52.0 % [facility] Hemoglobin (Bld) [Mass/Vol] 16.1 g/dL 13.5 - 17.5 g/dL [facility] Interpretation and review of laboratory results Normal [facility] MCH (RBC) [Entitic mass] 31.5 pg 26.0 - 34.0 pg [facility] MCHC (RBC) [Mass/Vol] 34.3 g/dL 32.0 - 36.0 g/dL [facility] MCV (RBC) [Entitic vol] 92 fL 80 - 100 fL [facility] Nucleated RBC/100 WBC (Bld) [Ratio] 0.0 % [facility] Platelets (Bld) [#/Vol] 279 10*3/uL [facility] RBC (Bld) [#/Vol] 5.11 10*6/uL [facility] WBC (Bld) [#/Vol] 8.9 10*3/uL [facility] Erythrocyte distribution width (RBC) [Ratio] 13.0 % Normal 11.5-14.5 [facility] Comment on above: Performed By: #### 5 8410-2 #### JAIMEE QURESHI ([id number]) [facility] ([facility]) [address] [place] [address]32 Hematocrit (Bld) [Volume fraction] 46.9 % Normal 41.0-52.0 [facility] Comment on above: Performed By: #### 5 8410-2 #### JAIMEE QURESHI ([id number]) [facility] ([facility]) [address] [place] [address]241 Hemoglobin (Bld) [Mass/Vol] 16.1 g/dL Normal 13.5-17.5 [facility] Comment on above: Performed By: #### 5 8410-2 #### JAIMEE QURESHI ([id number]) [facility] ([facility]) [address] [place] [address] 65812 MCH (RBC) [Entitic mass] 31.5 pg Normal 26.0-34.0 [facility] Comment on above: Performed By: #### 5 8410-2 #### JAIMEE QURESHI ([id number]) [facility] ([facility]) [address] [place] [address] 95226 MCHC (RBC) [Mass/Vol] 34.3 g/dL Normal 32.0-36.0 [facility] Comment on above: Performed By: #### 5 8410-2 #### JAIMEE QURESHI ([id number]) [facility] ([facility]) [address] [place] [address] 17672 MCV (RBC) [Entitic vol] 92 fL Normal 80-100 [facility] Comment on above: Performed By: #### 5 8410-2 #### JAIMEE QURESHI ([id number]) [facility] ([facility]) [address] [place] [address] 77613 Nucleated RBC/100 WBC (Bld) [Ratio] 0.0 /100 WBCs Normal 0.0-0.0 [facility] Comment on above: Performed By: #### 5 8410-2 #### JAIMEE QURESHI ([id number]) [facility] ([facility]) [address] [place] [address] 71155 Platelets (Bld) [#/Vol] 279 x10*3/uL Normal 150-450 [facility] Comment on above: Performed By: #### 5 8410-2 #### JAIMEE QURESHI ([id number]) [facility] ([facility]) [address] [place] [address] 30364 RBC (Bld) [#/Vol] 5.11 x10*6/uL Normal 4.50-5.90 [facility] Comment on above: Performed By: #### 5 8410-2 #### JAIMEE QURESHI ([id number]) [facility] [place] [address] [place] [address] 94028 WBC (Bld) [#/Vol] 8.9 x10*3/uL Normal 4.4-11.3 [facility] Comment on above: Performed By: #### 5 8410-2 #### JAIMEE QURESHI (89506) [facility] [place] [address] [place], [place] [address] Electrophysiology studyon [facility] Work Phone: PT and aPTT panel Coag (PPP) on 08-05-2023 aPTT Coag (PPP) [Time] 34 s Un [facility] INR Coag (PPP) [Relative time] 1.0 {INR} 0.9 - 1.1 [facility] Interpretation and review of laboratory results Normal [facility] PT Coag (PPP) [Time] 11.0 s [facility] The APTT is no longer used for monitoring Unfractionated Heparin Therapy. For monitoring Heparin Therapy, use the Heparin Assay. [facility] aPTT Coag (PPP) [Time] 34 s Normal 27-38 [facility] Comment on above: Order Comment: The A PTT is no longer used for monitoring Unfractionated Heparin Therapy. For monitoring Heparin Therapy, use the Heparin Assay. Performed By: #### 3 4529-8 #### JAIMEE QURESHI ([id number]) [facility] ([facility]) [address] [place] [address] 97218 INR Coag (PPP) [Relative time] 1.0 Normal 0.9-1.1 [facility] Comment on above: Order Comment: The A PTT is no longer used for monitoring Unfractionated Heparin Therapy. For monitoring Heparin Therapy, use the Heparin Assay. Performed By: #### 3 4529-8 #### JAIMEE QURESHI ([id number]) [facility] ([facility] [address] [place] [address] 068[address] PT Coag (PPP) [Time] 11.0 s Normal 9.8-12.8 [facility] Comment on above: Order Comment: The A PTT is no longer used for monitoring Unfractionated Heparin Therapy. For monitoring Heparin Therapy, use the Heparin Assay. Performed By: #### 3 4529-8 #### JAIMEE QURESHI ([id number]) [facility] ([facility]) [address] [place] [address] TRANSTHORACIC ECHO (TTE) COM PLETEon 08-05-2023 TRANSTHORACIC ECHO (TTE) [address] [address] TRANSTHORACIC ECHOCARDIOGRAM REPORT Patient Name: LILIANA MICHAELS Reading Physician: [id number] Batsheva Morris MD, LOCATED WITHIN [facility] Study Date: 08/05/2023 Ordering Provider: [id number] ANA M ANGEL MRN/PID: [id number] Fellow: Nurse: Date of /Age: 10 1965 Crew Lead: Eli Pisano RDCS Gender: M Additional Staff: Height: 162.56 cm Admit Date: Weight: 90.72 kg Admission Status: Outpatient BSA / BMI: 1.96 m2 / 34.33 Department Location: [place] [address] Echo Lab Blood Pressure: 128 /73 mmHg Study Type: TRANSTHORACIC ECHO (TTE) COMPLETE Diagnosis/ICD: Bradycardia, unspecified-R00.1 Indication: Abnormal EKG, Pre-EP CPT Codes: Echo Complete w Full Doppler-42789 Study Detail: The following Echo studies were [...] LA Area A2C: 18.9 cm2 LA [place] A4C: 5.8 cm LA [place] A2C: 5.5 cm LA Volume Index: 27.0 [...] 1.3 m/s (0.6-0.9m/s) PV Max P.6 mmHg [id number] Batsheva Morris MD, FACC Electronically signed on 08/05/2023 at 2:30:14 PM Final [facility] US Heart TransthoracicOrdere d By: Batsheva Morris on 08-05-2023 Aortic Valve Area by Continuity of Peak Velocity 2.42 cm2 [facility] Work Phone: Aortic Valve Area by Continuity of VTI 2.62 cm2 [facility] Work Phone: [phone] AV mn grad 4.0 mmHg [facility] Work Phone: [phone] AV pk grad 8.2 mmHg [facility] Work Phone: [phone] AV pk abiodun 1.43 m/s [facility] Work Phone: LA vol index A/L 29.3 ml/m2 [facility] Work Phone: [phone] LV A4C EF 62.4 [facility] Work Phone: [phone] LV biplane EF 60 % [facility] Work Phone: [phone] LVIDd 5.28 cm [facility] Work Phone: [phone] LVOT diam 2.00 cm [facility] Work Phone: [phone] MV avg E/e' ratio 7.78 [facility] Work Phone: [phone] MV E/A ratio 0.88 [facility] Work Phone: RV free wall pk S' 15.40 cm/s [facility] Work Phone: RVSP 23.4 mmHg [facility] Work Phone: Tricuspid annular plane systolic excursion 3.6 cm [facility] Work Phone: [facility] Work Phone: US Heart Transthor[facility]icon [place] [address] TRANSTHORACIC ECHOCARDIOGRAM REPORT Patient Name: LILIANA MICHAELS Reading Physician: [id number] Batsheva Morris MD, LOCATED [facility]IN [facility] Study Date: 08/05/2023 Ordering Provider: [id number] ANA M ANGEL MRN/PID: [id number] Fellow: Nurse: Date of /Age: 10 1965 / 58 Crew Lead: Eli Pisano RDCS Gender: M Additional Staff: Height: 162.56 cm Admit Date: Weight: 90.72 kg Admission Status: Outpatient BSA / BMI: 1.96 m2 / 34.33 Department Location: [place] [address] Echo Lab Blood Pressure: 128 /73 mmHg Study Type: TRANSTHORACIC ECHO (TTE) COMPLETE Diagnosis/ICD: Bradycardia, unspecified-R00.1 Indication: Abnormal EKG, Pre-EP CPT Codes: Echo Complete w Full Doppler-69958 Study Detail: The following Echo studies were [...] LA Area A2C: 18.9 cm2 [place] A4C: 5.8 cm [place] A2C: 5.5 cm LA Volume Index: 27.0 [...] not included)... Batsheva Alexander MD - 08/05/2023 [place] [address] TRANSTHORACIC ECHOCARDIOGRAM REPORT Patient Name: LILIANA MICHAELS Reading Physician: [id number] Batsheva Morris MD, [facility] Study Date: 08/05/2023 Ordering Provider: [id number] ANA M ANGEL MRN/PID: [id number] Fellow: Nurse: Date of /Age: 10 1965 Crew Lead: Eli Pisano RDCS Gender: M Additional Staff: Height: 162.56 cm Admit Date: Weight: 90.72 kg Admission Status: Outpatient BSA / BMI: 1.96 m2 / 34.33 Department Location: [place] [address] Echo Lab Blood Pressure: 128 /73 mmHg Study Type: TRANSTHORACIC ECHO (TTE) COMPLETE Diagnosis/ICD: Bradycardia, unspecified-R00.1 Indication: Abnormal EKG, Pre-EP CPT Codes: Echo Complete w Full Doppler-65930 Study Detail: The following Echo studies were [...] LA Area A2C: 18.9 cm2 [place] A4C: 5.8 cm [place] A2C: 5.5 cm LA Volume Index: 27.0 [...] 1.3 m/s (0.6-0.9m/s) PV Max P.6 mmHg [id number] Batsheva Morris MD, [facility] Electronically signed on 08/05/2023 at 2:30:14 PM Final [facility] Work Phone: XR CHEST 1 VIEWon 08-05-2023 XR CHEST 1 VIEW Interpreted By: Salvatore Clark, STUDY: XR CHEST 1 VIEW INDICATION: Signs/Symptoms:post implant. COMPARISON: None ACCESSION NUMBER(S): [id number] ORDERING CLINICIAN: ANA M KUMARI FINDINGS: No consolidation, effusion, edema, or pneumothorax. Pacemaker placed without pneumothorax. Position satisfactory. IMPRESSION: Status post pacemaker placement. Signed by: Salvatore Clark 08/05/2023 6:10 PM Dictation workstation: [id number] [facility] Comment on above: Order Comment: Vahe heard. XR Chest Single viewon 08-04 Status post pacemaker placement. Signed by: Salvatore Clark 08/05/2023 6:10 PM Dictation workstation: [id number] [facility] MM[facility]AL Interpreted By: Salvatore Clark, STUDY: XR CHEST 1 VIEW INDICATION: Signs/Symptoms:post implant. COMPARISON: None ACCESSION NUMBER(S): [id number] ORDERING CLINICIAN: ANA M KUMARI FINDINGS: No consolidation, effusion, edema, or pneumothorax. Pacemaker placed without pneumothorax. Position satisfactory. [facility] MMODAL Salvatore Clark MD - 08/05/2023 Interpreted By: Salvatore Clark, STUDY: XR CHEST 1 VIEW INDICATION: Signs/Symptoms:post implant. COMPARISON: None ACCESSION NUMBER(S): [id number] ORDERING CLINICIAN: ANA M KUMARI FINDINGS: No consolidation, effusion, edema, or pneumothorax. Pacemaker placed without pneumothorax. Position satisfactory. IMPRESSION: Status post pacemaker placement. Signed by: Salvatore Clark 08/05/2023 6:10 PM Dictation workstation: [id number] [facility] Work Phone: Radiology Study observation (narrative) [facility] Work Phone: XR Chest Single viewOrdered By: Salvatore Clark on 08-05-2023 [facility] Work Phone: ECG 12 lead (Clinic Performe d)on 07-22-2023 EKG shows marked sinus bradycardia rate of 41 bpm QRS ration 100 ms QT corrected he had a 91 ms. Rhythm strip shows the same pattern. [facility] Work Phone: CT LUNG CANCER SCREENINGon [...] BATSHEVA ALVARADO Date: 2022-07-15 12:[address] [facility] Office Visit (Cardiology)on 07-14-2022 Follow-up visit [...] we can help. You may also call [phone] for free resources and assistance.; Status:Complete - [...] ischemic evaluation. He underwent cardiac catheterization in [place] which showed no significant obstructive disease 3. [...] BY MOUTH FOUR TIMES A DAY NEEDED Gaibbe1i at bedtime Singulair 10 MG Oral TabletTAKE [...] negative for complaint. Vitals Vital Signs Recorded: [id number] 10:57AM Heart Rate34, L Radial Wonovoif169, LUE, Sitting Gnyekizpj82, LUE, Sitting Height5 ft 4 in Ioyovk196 lb BMI Dbivatzcnx73.96 kg/m2 BSA Calculated1.92 Tobacco Usea) Yes Patient encouraged to st (more content not included)... Normal [facility] Tobacco Screening.on 023 Adult depression screening assessment No [facility] Mobile Card DO Work Phone: Fall risk assessment a) No falls within the last year [facility] LV [employer] DO Work Phone: Tobacco use status CPHS a) Yes [facility] Mobile Card DO Work Phone: Tobacco Screening. Yes [facility] Mobile Card DO Work Phone: CT ABD/PELV W CONon [...] FLEX JACOBS Date: 2022-06-11 10:06 Normal [facility] CBC AUTO DIFFon 05-07-2022 BASO # 0.1 103/ul Normal 0.0-0.1 [facility] Comment on above: Performed By: #### C BC #### [facility] [address] [place] [address] Dr. Britt Mendoza Basophils/100 WBC (Bld) 1.6 % Normal 0.2-2.0 [facility] Comment on above: Performed By: #### C BC #### [facility] [address] [place] [address] Dr. Britt Mendoza EO # 0.2 103/ul Normal 0.0-0.7 [facility] Comment on above: Performed By: #### C BC #### [facility] [address] [place] [address] Dr. Britt Mendoza Eosinophils/100 WBC (Bld) 3.0 % Normal 0.9-7.0 [facility] Comment on above: Performed By: #### C BC #### [facility] [address] [place] [address] Dr. Britt Mendoza Erythrocyte distribution width (RBC) [Ratio] 12.4 % Normal 11.0-15.0 [facility] Comment on above: Performed By: #### C BC #### [facility] [address] [place] [address] Dr. Britt Mendoza Hematocrit (Bld) [Volume fraction] 43.2 % Normal 42.0-54.0 [facility] Comment on above: Performed By: #### C BC #### [facility] [address] [place] [address] Dr. Britt Mendoza Hemoglobin (Bld) [Mass/Vol] 14.7 g/dL Normal 14.0-18.0 [facility] Comment on above: Performed By: #### C BC #### [facility] [address] [place] [address] Dr. Britt Mendoza IG # 0.11 10e3/ul Critically high 0.00-0.03 [facility] Comment on above: Performed By: #### C BC #### [facility] [address] [place] [address] Dr. Britt Mendoza IG % 1.4 % Critically high 0.0-0.5 [facility] Comment on above: Performed By: #### C BC #### [facility] [address] [place] [address] Dr. Britt Mendoza LYMPH # 1.7 103/ul Normal 1.2-3.8 [facility] Comment on above: Performed By: #### C BC #### [facility] [address] [place] [address] Dr. Britt Mendoza Lymphocytes/100 WBC (Bld) 21.6 % Normal 20.5-60.0 [facility] Comment on above: Performed By: #### C BC #### [facility] [address] [place] [address] Dr. Britt Mendoza MANUAL DIFF REQ NO Normal [facility] Comment on above: Performed By: #### C BC #### [facility] [address] [place] [address] Dr. Britt Mendoza MCH (RBC) [Entitic mass] 31.2 pg Normal 25.9-34.0 [facility] Comment on above: Performed By: #### C BC #### [facility] [address] [place] [address] Dr. Britt Mendoza MCHC (RBC) [Mass/Vol] 34.0 g/dL Normal 29.9-35.2 [facility] Comment on above: Performed By: #### C BC #### [facility] [address] [place] [address] Dr. Britt Mendoza MCV (RBC) [Entitic vol] 91.7 fL Normal 80.0-94.0 [facility] Comment on above: Performed By: #### C BC #### [facility] [address] [place] [address] Dr. Britt Mendoza MONO # 0.5 103/ul Normal 0.3-0.8 [facility] Comment on above: Performed By: #### C BC #### [facility] [address] [place] [address] Dr. Britt Mendoza Monocytes/100 WBC (Bld) 6.8 % Normal 1.7-12.0 [facility] Comment on above: Performed By: #### C BC #### [facility] [address] [place] [address] Dr. Britt Mendoza NEUT # 5.0 103/ul Normal 1.4-6.5 [facility] Comment on above: Performed By: #### C BC #### [facility] [address] [place] [address] Dr. Britt Mendoza Neutrophils/100 WBC (Bld) 65.6 % Normal 43.0-75.0 [facility] Comment on above: Performed By: #### C BC #### [facility] [address] [place] [address] Dr. Britt Mendoza Platelet mean volume (Bld) [Entitic vol] 9.7 fL Normal 9.5-13.5 [facility] Comment on above: Performed By: #### C BC #### [facility] [address] [place] [address] Dr. Britt Mendoza PLT 244 103/ul Normal 150-450 [facility] Comment on above: Performed By: #### C BC #### [facility] [address] [place] [address] Dr. Britt Mendoza RBC 4.71 106/ul Normal 4.70-6.10 [facility] Comment on above: Performed By: #### C BC #### [facility] [address] [place] [address] Dr. Britt Mendoza WBC 7.6 103/ul Normal 4.0-11.0 [facility] Comment on above: Performed By: #### C BC #### [facility] [address] [place], [place] [address] Dr. Britt Mendoza GLYCOHEMOGLOBIN A1Con 2021 ADA RECOMMENDATION SEE BELOW Normal [facility] Comment on above: Result Comment: ADA RECOMMENDED LIMIT 4.0 - 6.0 ADA THERAPEUTIC TARGET < 7.0 ACTION SUGGESTED > 7.0 Performed By: #### A 1C ####[facility] [address] [place] [address]Dr. Britt Mendoza Glucose [Mass/Vol] 117 mg/dL Normal [facility] Comment on above: Performed By: #### A 1C ####[facility] [address]ym[address]ne[address] [place] [address]Dr. Britt Mendoza HbA1c (Bld) [Mass fraction] 5.7 % Normal 4.5-6.2 [facility] Comment on above: Performed By: #### A 1C ####[facility] [address] [place] [address]Dr. Britt Mendoza LIPID PROFILEon 05-07-2022 CHOL-HDL RATIO NORM SEE BELOW Normal [facility] Comment on above: Result Comment: 3.3 - 4.4 LOW RISK 4.4 - 7.1 AVERAGE RISK 7.1 - 11.0 MODERATE RISK >11.0 HIGH RISK Performed By: #### B MP, LIVER, LIPID, TSH ####[facility] [address] [place] [id number]. Britt Mendoza Cholesterol [Mass/Vol] 235 mg/dL Critically high <=200 [facility] Comment on above: Performed By: #### B MP, LIVER, LIPID, TSH ####[facility] [address] [place] [address]Dr. Britt Mendoza Cholesterol in HDL [Mass/Vol] 40 mg/dL Normal 40-60 [facility] Comment on above: Performed By: #### B MP, LIVER, LIPID, TSH ####[facility] Dtrbsenczo[address] [place] [address]Dr. Britt Mendoza Cholesterol in LDL [Mass/Vol] 156.8 mg/dL Normal [facility] Comment on above: Performed By: #### B MP, LIVER, LIPID, TSH ####[facility] Aybnhghqhq[address] [place] [address]Dr. Britt Mendoza Cholesterol.total/Viola sterol in HDL [Mass ratio] 5.9 {ratio} Normal [facility] Comment on above: Performed By: #### B MP, LIVER, LIPID, TSH ####[facility] [address]auxhwj[address] [place] [address]Dr. Britt Mendoza HDL NORMAL > or = 60 mg/dl - LOW CARDIOVASCULAR RISK <40 mg/dl - HIGH CARDIOVASCULAR RISK Normal [facility] Comment on above: Performed By: #### B MP, LIVER, LIPID, TSH ####[facility] [address]rs[address] [place] [address]Dr. Britt Mendoza LDL CALC NORMAL SEE BELOW Normal [facility] Comment on above: Result Comment: <100 mg/dl OPTIMAL 100 - 129 mg/dl NEAR OR ABOVE OPTIMAL 130 - 159 mg/dl BORDERLINE HIGH 160 - 189 mg/dl HIGH >190 mg/dl VERY HIGH Performed By: #### B MP, LIVER, LIPID, TSH ####[facility] C[address] [place] [address]Dr. Britt Mendoza Triglyceride [Mass/Vol] 191 mg/dL Critically high <=150 [facility] Comment on above: Performed By: #### B MP, LIVER, LIPID, TSH ####[facility] Th[address]fduutp[address] [place] [address]Dr. Britt Mendoza VLDL CALC 38.2 mg/dL Normal [facility] Comment on above: Performed By: #### B MP, LIVER, LIPID, TSH ####[facility] Kqpeoimagp[address] [place] [phone]. Britt Mendoza LIVER PROFILEon 05-07-2022 Albumin [Mass/Vol] 3.6 g/dL Normal 3.4-5.0 [facility] Comment on above: Performed By: #### B MP, LIVER, LIPID, TSH ####[facility] Wsrschprqg[address] [place] [address]Dr. Britt Mendoza Albumin/Globulin [Mass ratio] 1.1 {ratio} Normal [facility] Comment on above: Performed By: #### B MP, LIVER, LIPID, TSH ####[facility] Zbxyrfgmyb[address] [place] [address]Dr. Britt Mendoza ALP [Catalytic activity/Vol] 84 U/L Normal 46-116 [facility] Comment on above: Performed By: #### B MP, LIVER, LIPID, TSH ####[facility] J[address]vm[address]iivi[address] [place] [address]Dr. Britt Mendoza ALT [Catalytic activity/Vol] 34 U/L Normal 16-63 [facility] Comment on above: Performed By: #### B MP, LIVER, LIPID, TSH ####[facility] Yypluliklt[address] [place] [address]Dr. Anjalidaniel Reji AST [Catalytic activity/Vol] 21 U/L Normal 15-37 [facility] Comment on above: Performed By: #### B MP, LIVER, LIPID, TSH ####[facility] [address] [place], [place] [address]Dr. Britt Mendoza BILI, CONJUGATED 0.1 mg/dL Normal 0.0-0.2 [facility] Comment on above: Performed By: #### B MP, LIVER, LIPID, TSH ####[facility] [address] [place], [place] [address]Dr. Britt Mendoza Bilirubin [Mass/Vol] 0.4 mg/dL Normal 0.2-1.0 [facility] Comment on above: Performed By: #### B MP, LIVER, LIPID, TSH ####[facility] Pf[address]mbjfvn[address] [place] [address]Dr. Anjalidaniel Reji Globulin (S) [Mass/Vol] 3.4 g/dL Normal [facility] Comment on above: Performed By: #### B MP, LIVER, LIPID, TSH ####[facility] [address] [place] [address]Dr. Britt Mendoza Protein [Mass/Vol] 7.0 g/dL Normal 6.4-8.2 [facility] Comment on above: Performed By: #### B MP, LIVER, LIPID, TSH ####[facility] Anniaqbjmv39[address] [place] [address]Dr. Britt Mendoza PROF CHEM 8 (BAS METB)on Anion gap [Moles/Vol] 13.8 mmol/L Normal [facility] Comment on above: Result Comment: Prev iously reported as: -2.3 On 05/07/2022 13:50 By DM9 Performed By: #### B MP, LIVER, LIPID, TSH #### [facility] [address] [place] [address] [address] Britt Mendoza Calcium [Mass/Vol] 9.2 mg/dL Normal 8.5-10.1 [facility] Comment on above: Performed By: #### B MP, LIVER, LIPID, TSH #### [facility] [address] [place] [address] [address] Britt Mendoza Chloride [Moles/Vol] 99 mmol/L Normal 98-107 [facility] Comment on above: Result Comment: Prev iously reported as: 106 On 05/07/2022 13:50 By DM9 Performed By: #### B MP, LIVER, LIPID, TSH #### [facility] [address] [place] [address] Dr. Britt Mendoza CO2 [Moles/Vol] 27.3 mmol/L Normal 21.0-32.0 [facility] Comment on above: Result Comment: Prev iously reported as: 29.2 On 05/07/2022 13:50 By DM9 Performed By: #### B MP, LIVER, LIPID, TSH #### [facility] [address] [place] [address] [address] Britt Mendoza Creatinine [Mass/Vol] 1.12 mg/dL Normal 0.70-1.30 [facility] Comment on above: Performed By: #### B MP, LIVER, LIPID, TSH #### [facility] [address] [place] [address] [address] Britt Mendoza EGFR-AF SAMOAN >60 Normal >=60 [facility] Comment on above: Performed By: #### B MP, LIVER, LIPID, TSH #### [facility] [address] [place] [address] [address] Britt Mendoza EGFR-NON AF SAMOAN >60 Normal >=60 [facility] Comment on above: Performed By: #### B MP, LIVER, LIPID, TSH #### [facility] [address] [place] [address] [address] Britt Mendoza Glucose [Mass/Vol] 108 mg/dL Critically high 74-106 [facility] Comment on above: Performed By: #### B MP, LIVER, LIPID, TSH #### [facility] [address] [place] [address] Dr. Britt Mendoza Potassium [Moles/Vol] 4.1 mmol/L Normal 3.5-5.1 [facility] Comment on above: Result Comment: Prev iously reported as: 3.9 On 05/07/2022 13:50 By DM9 Performed By: #### B MP, LIVER, LIPID, TSH #### [facility] [address] [place] [address] Dr. Britt Mendoza Sodium [Moles/Vol] 136 mmol/L Normal 136-145 [facility] Comment on above: Result Comment: Prev iously reported as: 129 On 05/07/2022 13:50 By DM9 Performed By: #### B MP, LIVER, LIPID, TSH #### [facility] [address] [place] [address] Dr. Britt Mendoza Urea nitrogen [Mass/Vol] 26.0 mg/dL Critically high 7.0-18.0 [facility] Comment on above: Performed By: #### B MP, LIVER, LIPID, TSH #### [facility] [address] [place] [address] Dr. Britt Mendoza Urea nitrogen/Creatinine [Mass ratio] 23.2 mg/mg Normal [facility] Comment on above: Performed By: #### B MP, LIVER, LIPID, TSH #### [facility] [address] [place] [address] Dr. Britt Mendoza TSHon 05-07-2022 TSH 0.828 uIU/mL Normal 0.358-3.740 [facility] Comment on above: Performed By: #### B MP, LIVER, LIPID, TSH ####[facility] [address] [place], [place] [address]WoAtiya Mendoza VITAMIN D 25 OHon 05-07-2022 VIT D 25-OH 45.6 ng/mL Normal [facility] Comment on above: Performed By: #### V ITAD, PSASC #### [facility] [address] [place], [place] [address] Dr. Britt Mendoza VIT D RANGES SEE BELOW Normal [facility] Comment on above: Result Comment: <20 ng/mL Vit D deficient 20 - <30 ng/mL Vit D insufficient 30 - 100 ng/mL Vit D sufficient >100 ng/mL Potential Toxicity Performed By: #### V ITTRISH, PSASC #### [facility] [address] [place], [place] [address] Dr. Britt Mendoza Covid-19 PCR (CVDTB)on SARS-CoV-2 (COVID-19) RNA KATT+probe Ql (Unsp spec) Detected Critically abnormal NOT DETECTED [facility] Comment on above: Result Comment: This test is not yet approved or cleared by the [place] FDA. When there are no FDA-approved or cleared tests available, and other criteria are met, FDA can make tests available under an emergency access mechanism called an Emergency Use Authorization (EUA). The EUA for this test is supported by the [place] of Health and Human Service's declaration that [...] be used). Performed By: #### C VDTBH ####[facility] [address] [place], [place] [address]WmDr. Britt Mendoza Cardiac Stress Teston 2021 Cardiac Stress Test [address], [address], [place] [address] Exercise Stress Test Patient Name: LILIANA MICHAELS JR. Ordering Physician: Melanie Ty MD Study Date: 02/15/2022 Reading Physician: [id number] Valentino Ty MD MRN/PID: [id number] Supervising Physician: [id number] Yovani Rivera MD Accession/Order#: [id number] Referring Physician: VALENTINO TY Date of : 1965 PCP: Ishmael Simon Gender: M Fellow: Height: 162.56 cm Nurse: Yunior Bhatti RN Weight: 81.65 kg Crew Lead: SAEID BSA: 1.87 m2 Technologist: BMI: 30.90 kg/m2 Additional Staff: Age: 56 years cc report to: Patient Location: cc report to: [id number] Valentino Ty MD Study Type: Cardiac Stress Test Diagnosis/ICD: R94.31-Abnormal electrocardiogram [ECG] [EKG]; R00.1-Bradycardia, unspecified; R06.00-Dyspnea, unspecified Indication: Dyspnea Procedure/CPT: Stress Test Interpretation-41134 ; Stress Test Supervision-65932 Falls Risk: Low: Patient has low risk [...] 7. An element of chronotropic incompetency noted. [id number] Valentnio Ty MD Electronically signed on 02/16/2022 at 2:52:20 PM Final Normal [facility] Cardiac Stress Test Please click on the link to view the study images [facility] Work Phone: Cardiac Stress Test MP-No rth [facility] 250 DO Work Phone: Office [...] we can help. You may also call [phone] for free resources and assistance.; Status:Complete - Retrospective Authorization; Done: 28Jan2022 SocHx: Current smoker Continue with our present treatment plan.; Status:Complete - Retrospective Authorization; Done: 28Jan2022 Tobacco Use Screening; Status:Complete; Done: 28Jan2022 Patient Instructions Please bring all medicines, vitamins, [...] This led to a cardiac evaluation in [place] and its not clear to me whether [...] Oral Capsule Delayed ReleaseTAKE 1 CAPSULE Daily Mybfmg7b at bedtime Sin (more content not included)... Normal [facility] Tobacco Screening.on 022 Adult depression screening assessment No [facility] [employer] 600 DO Work Phone: Fall risk assessment a) No falls within the last year [facility] [employer] 600 DO Work Phone: Tobacco use status CPHS a) Yes [facility] [employer] 600 DO Work Phone: Tobacco Screening. Yes [facility] [employer] 600 DO Work Phone: [facility]on SARS-CoV-2 (COVID-19) RNA KATT+probe Ql (Unsp spec) Not detected Normal NOT DETECTED [facility] Comment on above: Result Comment: This test is not yet approved or cleared by the [place] FDA. When there are no FDA-approved or cleared tests available, and other criteria are met, FDA can make tests available under an emergency access mechanism called an Emergency Use Authorization (EUA). The EUA for this test is supported by the [place] of Health and Human Service's (HHS's) declaration [...] SARS-CoV-2. Performed By: #### C VDTB #### [facility] [address] [place], [place] [address] Dr. Britt Mendoza Covid-19 PCR ([facility])on 11-07 SARS-CoV-2 (COVID-19) RNA KATT+probe Ql (Unsp spec) Not detected Normal NOT DETECTED [facility] Comment on above: Result Comment: This [...] consistent with SARS-CoV-2. Performed By: #### C [facility] ####[facility] [address] [place], [place] [address]JlDr. Britt Mendoza XR CHEST 2 Von 10-01-2021 [...] FLEX JACOBS Date: 2021-10-01 09:[address] [facility] Ambulatory Clinical Summaryo n 03-05-2021 Ambulatory Clinical Summary {[id number]}CD:[id number] Normal [facility] Historical Records Officeon 03-05-2021 Historical Records Office [id number] #[id number]:127 Normal [facility] Patient Educationon 03-05-20 Patient Education Urology [...] these instructions at home: Medicines ? Take jtch-udm-coweheq and prescription medicines only as told by [...] of your (more content not included)... Normal [facility] Urology Office/Clinic Noteon 03-05-2021 Urology Office/Clinic [...] order. Ordered: Office Visit Level 4 Est 26435 2. Hypogonadism male (E29.1: Testicular hypofunction) noted [...] time. Ordered: Office Visit Level 4 Est 18949 3. BPH with urinary obstruction (N40.1: Benign prostatic hyperplasia with lower urinary tract symptoms) s/p Urolift September 2018. Pt is currently taking no bladder/prostate medication and is mostly satisfied with overall symptom control. has nocturia but attributes this to diuretics. Pt prefers to continue with no changes at this time. PCP checking PSAs per pt. Ordered: Office Visit Level 4 Est 09255 Orders: Urnls Dip Stick Auto w/o Microscopy POC 26077 offered f/u 1 yr but pt prefers PRN. Total time spent reviewing previous notes/results/subcontracts manager al documents, preparing the chart, conducting the encounter with the patient and family, ordering tests/medications, and documenting the encounter was 30 minutes. Follow-up With When Contact Information ITA SLOAN, SIMONE Priest [address] [place] [address]- Additional Instructions: Patient Education Erectile Dysfunction Problem [...] inhalation powde (more content not included)... Normal [facility] Comment on above: Result Comment: Elec tronically Signed By: DANIEL MARTINEZ, TOMEKA Priest\.aracelis\Date and Time Signed: 03/05/21 12:24 EDT MRI PELVIS WO CONTRASTon MRI PELVIS WO CONTRAST [facility] [address] [place] [address] Patient Name: LILIANA MICHAELS : 1965 Sex: M Age: Race: White Pt. Location: 18 Patient Status: Ordered Date: 09/10/2020 3:35:00 PM Completed Date: 10/03/2020 08:34 AM Requesting Provider: SIMONE RUIZ Attending Provider: Report Copy To: Signs & Symptoms: R10.2 Pelvic and perineal pain I10 History: Lenore, Right FOREIGN per clinic will fax SS [facility] auth# [id number] 09/16/20-10/17/20 cpt code 79314 *mla Comments: Right groin to r/o an [...] spine. Electronically signed: Dinh Miller. Transcribed by: [email or web address], User Resident: Electronically Signed by: DINH MILLER @ 10/03/2020 09:57 AM Normal [facility] Comment on above: Order Comment: Right groin to r/o an adductor tear; iliopsoas bursitis or injury Operative Reporton Operative Report MR#: [id number] [facility] Pt. Name: Liliana Michaels Room #: [...] P/Simone Ruiz MD Date Trans: 09/10/2020 11:40 P/rinao [id number] cc: Ishmael Simon M.D. [address] [facility] [address] [address] [facility] Coding Summary.on 09-01-2020 Coding Summary. CD:[id number] Gh0bWw+PGhlYWQ+PE1FV UHxN57vdKRauQ5VY0oJE C4TIPQBBHFMJJ5HIF0kj BR0VPdsB5FzfuPr QyummCBpJN02ABq9OZX2 oSmbXKsfuR2apYCnO7q0 VmTxIH03yY36CGhuQKVn XfG7OoPjwalipYFm G0tcCkCowJOoHan+PHRh YmxlIHdpZHRoPScxMDAl PnCneCunML4eYa6kCGJg LWNvbGxhcHNlOiBj x0amHCGuOYtsUD5gwUhb S4NdbEQ9RIQmm4x5Wv65 dHI+TAXgEKH8qIjoGQoa v627WkHsd5geHZX0 aKHcYAvhTIZ1N03vl9J8 PRYwGDIpATH8zPW6hB7x lRrtrkmcP8BciUYtIfB2 YZY5rDZkuV1ydOhd ctjfaS0hLpu+W09IVB5I WOVVQY5NNbk8Z0FiIeiv dHI+CP27JTHnDV84oTLk qUBqb9eicSg0FkCn BRYwYXM9cUjsTOrwi7Ft VUIuA60hgGIjs7V4UDHs aWydqTYvYtJvaXI3kC1n ENjsmwpne2ivyfys Zcoht2frjq49mQ96P03o ATtdYTFeEJJ8ALSlTDXn iLpasp7qwS9uTo4+IDxj g9cel6znuLy9GyNs PFWcfiZneFkpEZI1g7Wv Iw50C6WloIclz4KcSib9 gu90sNOib2H0tBN8PDnb BKEdeN5gVUhyDiJ8 DQBwUrZnrY09jQQhZPoi Pi3ilZvmpHzhNL4qIOTm zwfqJGXjxU3bARVmyWAj lXynUZ6jPIGswksy z848FzFwMMO9GKMiwGPp C4XcgB5qNkHkWFMqRNDl G2TghUDwTQcjJ130WAfj NiY3SENverEtL0Xi IOHmwTyePdB9i7F1Dq7D p0FubxymUCI0NNrbGAS8 PnF9RkHtMxA3G1KoCna6 DJZutHnoEY5sW4Dc UQObnwtohlplmUK7UMZf ZGAkwB67vBLmNXfaGu4r n6X0e249QAJdJTYkcF95 Rw3noGynZUAmoUVH pD7hdxmro1jomkhkGdPy YWVuQGz4JVd1ADKmxKsy OqBtGFQ3TtZ4ZNX4qXOf tQ4peGkaskkssS9u Oyc+J66yvH5tPTQ6PRA3 wdzvUMNtxcTcBP77KI60 R7DeInbgeKEwyBF+PGRp zpVceCbyNW9nEhTy e9men7RhXJgmF1AvWZKf JDgpNot0LECfNXL3bBN9 qE5sMXYeZVajh9F4mGW8 T8JgmnGyav8hy2qz PLBrSZvqZ93toDHhe3E4 BEFkkVY7PZNpqYajRaDq wA56Ucu+KMVbcCqpy7Fx Iqvcx6jeb6jsrQp5 IjMwJSIgdmFsaWduPSJ0 k0LoCj60L80jQJmoTOOt VTOzDBWeAWNkpGqygx7f wF7cCk6+PGNvbCB3 pRQ1qP8eDOToCeE4NNln Q052OzTdeCCkKfymk8iq k8jqkSx8GvMtIIEpihVg zDxiRYF5q6CpWz24 T79mBSkiFDBvIWLfZBTa JUDmeCrjbx4zcB9hDj1+ KV5qg4ezwc37rT68mGZ+ SFSzVGL1iLevPQmj MKUjmW3tHPpdOrF9LSAp FzNwuX60xMGkDZenRf8b wBmjnIxjBN2pECRuhibb g717VaVaf3cpLDCu lGYvISniLAF1T54wl0P3 BSRmTLBfOQF5oEJ9bP9f bGlnbjogbGVmdDsgdmVy oIwhEKboRLjqR053 IHRvcDsnPlBhdGllbnQg AsOsHZt8L7NtFux3ZVKq vMwgJE5xoWKkUDvfHg0i lKxzlCchHC1wOPXq kvolb955DiDfz2dxMFUf iGKyEBggSOD7W34ag4O1 UZTgVHObJAO5cGE4zN0y bGlnbjogbGVmdDsg bjZveTtiKGhlABdfP086 IHRvcDsnPkJpcnRoIERh pKT6VB91JE12fZYbh1M7 lKM7A0ZoEWBzbehf rdczxAP8GBUlLAEbrE34 Rt0teFcwKg7eNAMwPDR7 EWXncOFyA2ZsrF2qPhIr LGKgLXYtN1NvsCFi JPmeD582XBayLaH2TRYu bqZxG1KcYLFwpTgpZbQ2 m5T3Vw7VV5V3MP56JF33 pGHmu2K4fJO3G8Sj NHQageqwplvltZK8XKPa ANQvaU39Wb3tlPvaSl5m MGMbZIB2GGXekIDoG5Jd oF6uVtAdCILuWXZz L3WoiIVdTRyzN941HNmi MuV1EZNlgvAtI7UgDZBg gJsgDkK4e6A3Zv2ATKk9 XQ03FM83eVUjt5Z6 bVG6D5MxNKRogmnyfzlu uGS9BTUiICKkrV26Sv0m zBmkRc6rQWXvZPE3ASMt oDZaP3NgwM6dHpVz IDLmEWReP6GkyCGtQItm J403ABiaNrL0MJSqurNi D0TnQRQgcGmzDtL0f2P9 Bj5XEGQzDI44VEF2 zGX1YB36WK00H1GvJmuz dGFibGU+PHRhYmxlIHdp ZHRoPScxMDAlJyBzdHls YV3bBx0sYNZbQNBi sCfxvHPfMcGbm1mbPXRb HGooGZ0pdEatZ5TicZD1 SQAud6u3Zw27O46jG4Te dXA+KWMklBJ9gME4 cP3mQpTrDxX2JPbfX165 ExWzsHDkWadel6zfn5ae fWb9XnM2QHWntpAkgCrs QWN7a7MiJb04X30c IHdpZHRoPSIxNSUiIHZh iLcqnf9sdY4pYp8+PGNv qKZ1dWJ2lL9jTjNeNiQ3 DAcxY133XtRinVYy Kiiwy6cav0tjwJw1GmRy KSFrayBxwBbzLLR9d7Jc Vd33F0UrtXnxh6IgPxu1 hm77pNNof7G2mYV5 Q9YfHXAlzhidyBDfgWmj AC6uNZKpfvwbCYYbtB5n RZTeW6i9OhWwHvY6CQla M8LwmqF5JJHfzPVq LXfeUDZ4Q44gk1S1HGMo AZGqADB9aFJ8yI2ghEco bjogbGVmdDsgdmVydGlj WZhuKGxdW756WVOl fRfuHFOabJ2aXUGomISz aZqaSL4eWFHgqoxhHbzZ AS3LMrdtSsFLIRwxTRua dGQ+PFOyLMZ5tPpd QVwhQQNmnU6hSUDuA7o5 NpPsEoQ5ALxrL8QsDJGu qaytLg35vL5rXkYjVgN3 YTfmL9HzykP9EPDd zKFqFBxiXGR7U40zd5P2 HCLrELEnQWH7hPL5nZ7w bGlnbjogbGVmdDsgdmVy zYheBQjqEDeiF052 FFBnyTvoVaCyHlY9EbT3 ZgQ6J9EqTjb2KYFntCae OH5abQCaMIrpDb1tyYro eTpgTB9zOMLyekbq FJIaxH3zLIOlnKJduQgs GC9rQNTadvlhc149SnQc SWJ0JIXrmWJdE1SbpV1k ZjRhOWAsAHMgP8Tr kFEjGAnqT423DDiiOlQ6 FUTtprYeK9EkXVEstBpv MpC6b9D2Ia27KhGCTZPx czwvdGQ+PHRkIHN0 tOenDYqhRSXacH5nUOIm G7m1QnEcVhP7VDyfB5Gq FJAirglaUq51jS7hAbSe BcH5DTdzR5VvwvS3 ALBweJHhKBcdKEX9D42h d9X1GJBtXJXwHBX7yRB9 cJ9bjJcbmydwnJLrkFck dmVydGljYWwtYWxp D426JDYxzOndUr3iwJM0 X5BaQso3TUWmrMoqQY5k uQUlYBnnIj7fjZpkeCdv IX0lFCVmloqrXXPy kX1yGQNeiZEeqKsbEL0a WMFerdlbv213GlKxIYF8 IWRbyDMkY9HxeR0zOaLa UQPnSKEtS2KqpCMn GGbqQ825GYqcFwW1ZCQh enLvT9MpUJRjvVpuYyI6 b0C6De3ZbOJgE0ZgI6e3 K5RkKbbnlQL+PC90 ONDwVN22yZHuaMUki5ko dKx7ElYxISKgSOH3lDxu ETmki2GpXHPcY83umMTc f1A1MRHvwPicpLNk BfQsbZU1iS0vKEbmtzjk q5piaoryUajyv8iyvj13 mY97M06mJYhrEVWsITKt FJMlFTLkzRfeqs0o lQ8uYe7+REAdsUM4bCF9 aY2fIzHxYdD6ZWwgV449 AgPjyZOuCmxtc5sxa4pz fWb2PaWvIUGqfhOo fNpyJSD1z4UvCk62N06o IHdpZHRoPSIyMCUiIHZh kTeava0ydK9zRg5+PC9j n4avjj59zO95nHR+ TPTvTDV8xCdcPPsbCSYv vY0jDEbgPqN5PHYwNuAz rE86gLMyDGpgJh9uwEaw iAmkJS0zAJFarcfs u874KdMic4wtWDWrqJQm NRrlGJF9B73ae0D7CJLa NTPvODM9uVD5jH1xgOon bjogbGVmdDsgdmVy qYffYMllVTmmN657QCTe rDixEfKnpOBcN9saubIV IY7eAcgqhOL+PHRkIHN0 lSnqDCpoACFvkZ7l BUAnR9m2WhMdXvA1OOez K5ShdbW3RDUzyOCgZZTm xYIGtH2ettlet7ccrljj JgAcEUWgUNt8HTd4 CJMfqZwjIwMbDGP2YyX5 NKB5xDPfwB3sgGbhhdsd zO4eCqy+RklOOjwvdGQ+ QPJpKFJ3wKsnHThh ZAEyjX1sMQBdP8h6PvAz PmR4XJnxZ7RcfqA3AKTf kZVyOYPrmBSHrO7ppwzo p8hzvbjvMtVbCTTu WLx1PWo4FKYrcJxyOxXu RHI1TxH3UKQ1zMCvrJ7y yEheyejcaU9rUjc+TVJO OjwvdGQ+PHRkIHN0 aCotAHjrZEZmgC0yRKNn X6x0GzYkUoN6EDvnL9Rw zwG9TAGvsYVuWLXrnXLQ kR7ooxmpn2dkvtyt HsAyTESgTAa7NYj0CQCz dAicDvEkUPG3IyS6TJT6 yNXbeQ6ihImvivprbY3m Oyc+HHJ1WMY1FZ10 NL74H6YkIpuxpNNokWX+ PHRhYmxlIHdpZHRoPScx PHRpKoQrsBuhBF9mNz0i ZGVyLWNvbGxhcHNl OiBj (more content not included)... Normal [facility] Auto Diffon 08-24-2020 Basophils/100 WBC (Bld) 1.0 % Normal 0.0-2.0 [facility] Comment on above: Order Comment: Order Added by Discern Expert. Performed By: #### 1 5398026, 2467855, 4200180, 74689329, 2854923, 8507511, 13739390, 51139680 ####[address] [place] [address] Basophils/Leukocytes Auto (Bld) [Pure # fraction] 0.1 E9/L Normal 0.0-0.2 [facility] Comment on above: Order Comment: Order Added by Discern Expert. Performed By: #### 1 2780428, 7992567, 2490130, 46726327, 4662312, 0567121, 53446730, 18361291 ####[address] [address] Eosinophils/100 WBC (Bld) 2.5 % Normal 0.0-8.0 [facility] Comment on above: Order Comment: Order Added by Discern Expert. Performed By: #### 1 7356684, 5741671, 6858271, 44648193, 2859772, 0459352, 77679108, 30951757 ####[address] [address] Eosinophils/Leukocytes Auto (Bld) [Pure # fraction] 0.3 E9/L Normal 0.0-0.5 [facility] Comment on above: Order Comment: Order Added by Discern Expert. Performed By: #### 1 9767023, 6884697, 0145715, 71542046, 3247440, 1875497, 73943997, 94957291 ####[address] [address] Lymphocytes/100 WBC (Bld) 21.0 % Normal 14.0-50.0 [facility] Comment on above: Order Comment: Order Added by Discern Expert. Performed By: #### 1 1907309, 0471744, 7929894, 59892542, 3915657, 4664976, 33458030, 43267260 ####[address] [address] Lymphocytes/Leukocytes Auto (Bld) [Pure # fraction] 2.1 E9/L Normal 1.0-4.0 [facility] Comment on above: Order Comment: Order Added by Crystal Expert. Performed By: #### 1 9726538, 0184540, 1905483, 71662795, 0416060, 9424889, 31442707, 75580582 ####[facility] [address] [place] [address] Monocytes/100 WBC (Bld) 6.2 % Normal 4.0-14.0 [facility] Comment on above: Order Comment: Order Added by Discern Expert. Performed By: #### 1 5278429, 1969781, 3331076, 24470241, 6473641, 8554515, 86798620, 76772047 ####[address] [place] [address] Monocytes/Leukocytes Auto (Bld) [Pure # fraction] 0.6 E9/L Normal 0.2-1.0 [facility] Comment on above: Order Comment: Order Added by Crystal Expert. Performed By: #### 1 4599526, 3890226, 9977989, 65696993, 4563729, 5095255, 67418611, 53153875 ####[address] [address] Neutrophils/100 WBC (Bld) 69.3 % Normal 36.0-75.0 [facility] Comment on above: Order Comment: Order Added by Crystal Expert. Performed By: #### 1 7253104, 5836394, 1232169, 19118451, 8249295, 3443292, 56498225, 59582533 ####[facility] [address] [place] [address] Neutrophils/Leukocytes Auto (Bld) [Pure # fraction] 6.9 E9/L Normal 2.0-7.5 [facility] Comment on above: Order Comment: Order Added by Crystal Expert. Performed By: #### 1 2204077, 6391236, 9522106, 99950620, 1601918, 2688703, 38476154, 78987990 ####[facility] [address] [place] [address] BMPon 08-24-2020 Creatinine [Mass/Vol] 1.1 mg/dL Normal 0.5-1.3 [facility] Comment on above: Performed By: #### 1 2288060, 1594076, 0290288, 07503979, 1698416, 6032292, 79897156, 19960171 ####[facility] [address] [place] [address] Urea nitrogen [Mass/Vol] 19 mg/dL Normal 5-21 [facility] Comment on above: Performed By: #### 1 7396680, 4879594, 0952442, 33280221, 1195455, 5397050, 55099250, 56385690 ####[facility] [address] [place] [address] Urea nitrogen/Creatinine [Mass ratio] 17 No Units Normal 10-20 [facility] Comment on above: Performed By: #### 1 6898198, 7939032, 2189302, 68733190, 8396286, 4751028, 55934640, 80325303 ####[facility] [address] [place] [address] Anion gap [Moles/Vol] 14 mmol/L Normal 6-16 [facility] Comment on above: Performed By: #### 1 4854363, 1283460, 0938667, 08089173, 2232570, 6434527, 30736306, 72217644 ####[facility] [address] [place] [address] Calcium [Mass/Vol] 9.4 mg/dL Normal 8.9-11.1 [facility] Comment on above: Performed By: #### 1 4832050, 5873429, 6341032, 93964208, 0825491, 0344525, 39935018, 17461351 ####[facility] [address] [place] [address] Chloride [Moles/Vol] 94 mmol/L Low 101-111 [facility] Comment on above: Performed By: #### 1 1762284, 8976138, 7793896, 65281969, 8737801, 3168801, 86832221, 48731369 ####[facility] [address] [place] [address] CO2 [Moles/Vol] 29 mmol/L Normal 21-31 [facility] Comment on above: Performed By: #### 1 5336069, 5006868, 0385927, 31063618, 4975996, 8272846, 16712795, 79260115 ####[facility] [address] [place] [address] Glucose [Mass/Vol] 103 mg/dL Normal 55-199 [facility] Comment on above: Result Comment: If t his glucose result represents a fasting glucose, interpretation should refer to the following reference range: 55-99 mg/dL Performed By: #### 1 4379222, 2302947, 1034522, 66364810, 3194626, 7318805, 71333029, 79314133 ####[facility] [address] [place] [address] Potassium [Moles/Vol] 4.0 mmol/L Normal 3.5-5.3 [facility] Comment on above: Performed By: #### 1 8753070, 6346603, 7833600, 67949172, 6819547, 6338690, 82665689, 19765972 ####[facility] [address] [place] [address] Sodium [Moles/Vol] 133 mmol/L Low 135-145 [facility] Comment on above: Performed By: #### 1 1359887, 0123383, 9712732, 11998127, 3596759, 6036671, 87150720, 48721670 ####[facility] [address] [place] [address] BNPon 08-24-2020 Natriuretic peptide B (Bld) [Mass/Vol] 17 pg/mL Normal 5-80 [facility] Comment on above: Performed By: #### 1 5487324, 0607199, 3287943, 85307118, 1678867, 2369001, 30260161, 14943713 ####[address] [place] [address] CBC w/ Auto Diffon 1 Erythrocyte distribution width (RBC) [Ratio] 12.9 % Normal 10.9-14.2 [facility] Comment on above: Performed By: #### 1 0854048, 6026864, 8121332, 63622050, 3129735, 4347744, 46374950, 29615023 ####[address] [address] Hematocrit (Bld) [Volume fraction] 44.4 % Normal 37.7-49.0 [facility] Comment on above: Performed By: #### 1 2823885, 4287599, 7196435, 75304315, 6081347, 2922457, 26360342, 88527114 ####[address] [address] Hemoglobin (Bld) [Mass/Vol] 15.3 g/dL Normal 13.5-17.5 [facility] Comment on above: Performed By: #### 1 1575101, 8434283, 5717897, 75089520, 6381190, 1728320, 85154840, 80285098 ####[address] [address] MCH (RBC) [Entitic mass] 31.5 pg Normal 27.0-34.0 [facility] Comment on above: Performed By: #### 1 6189571, 9484350, 8871062, 81619506, 7798115, 2745555, 20053148, 05549068 ####[address] [address] MCHC (RBC) [Mass/Vol] 34.4 g/dL Normal 31.4-36.0 [facility] Comment on above: Performed By: #### 1 0371990, 3130819, 5759754, 18963725, 2161046, 3269714, 29126542, 82360520 ####[address] [place] [address] MCV (RBC) [Entitic vol] 91.6 fL Normal 80.0-100.0 [facility] Comment on above: Performed By: #### 1 1082689, 3492907, 5673295, 23844196, 0414894, 2447513, 23608103, 64048307 ####[address] [address] Platelet mean volume (Bld) [Entitic vol] 8.4 fL Normal 6.4-10.8 [facility] Comment on above: Performed By: #### 1 4473062, 3079452, 5878186, 05005502, 2877576, 4236585, 65387926, 77793669 ####[address] [address] Platelets (Bld) [#/Vol] 289.0 E9/L Normal 150.0-500.0 [facility] Comment on above: Performed By: #### 1 9552634, 3677639, 2408388, 17706989, 0644004, 1852812, 89456906, 30677237 ####[address] [address] RBC (Bld) [#/Vol] 4.8 E12/L Normal 4.3-5.9 [facility] Comment on above: Performed By: #### 1 1848970, 0177855, 0549779, 66429593, 1959807, 6038792, 49194854, 44455073 ####[address] [place] [address] WBC corrected for nucl RBC Auto (Bld) [#/Vol] 9.9 E9/L Normal 4.0-11.0 [facility] Comment on above: Performed By: #### 1 8710008, 5720367, 9099479, 31512858, 7070868, 5076845, 57553773, 44765868 ####[facility] [address] [place] [address] CTA Cheston 08-24-2020 CTA Chest Exam Date/Time: [...] 370 Contrast amount in ml's: 78 Normal [facility] Consent for Treatmenton 08-07 Consent for Treatment [id number] 10 [id number] #1.00CD:127 Normal [facility] D-Dimeron 08-24-2020 Fibrin D-dimer FEU (PPP) [Mass/Vol] 845 ng/mL Abnormal 215-500 [facility] Comment on above: Result Comment: Resu [...] infections Liver cirrhosis Performed By: #### 1 5795500, 7047410, 2673222, 96943294, 0910533, 0672844, 22760425, 28084178 ####[facility] [address] Discharge Instructionson Discharge Instructions [id number] [id number] #1.00CD:127 Normal [facility] ED Clinical Summaryon 2020 ED Clinical Summary [address] [address] ED Clinical Summary Person Information Name: LILIANA MICHAELS Kristine/[facility] Age: 55 Years : 1965 Sex: Male Language: Guyanese PCP: SIMONE JEAN BAPTISTE DC Marital Status: Single Phone: [phone] Visit Id: Visit Reason: Rib/trunk pain-swelling; SIDE [...] 03:27:58 08/24/2020 03:27:58 08/24/2020 03:27:58 ADDRESS: [address] [place] [id number] PHYS DOC NOTES: MEDICAL INFORMATION: Prescriptions Given: New Medications [id number], [address], [place] [id number], [phone] azithromycin (Zithromax TRI-AMIRA 500 mg oral tablet) [...] up: With: Address: When: SIMONE GONZALEZ [address] [place] [address] Business (1) In 1 day 08/25/2020 Comments: Patient is advised to follow-up with his primary care physician in 1 to 2 days. He is also advised to come back to the emergency department if symptoms get worse. DIAGNOSIS: 1:Rib pain on left side Normal [facility] ED Note-Physicianon 08-25-19 ED Note-Physician Basic [...] date 08/24/20 2:30:00 EDT Rapid COVID Antigen ([facility]) Orders: albuterol-ipratropiu m, 3 mL, Soln-Inh, Inhalation, Once, Stop date 08/24/20 0:16:00 EDT, STAT, Start date 08/24/20 0:16:00 EDT azithromycin, 500 mg = 1 tab(s), Oral, Daily, # 3 tab(s), Refills(s) 0, Pharmacy: [id number], 163, cm, 08/24/20 0:04:00 EDT, Height/Length Dosing, 101, kg, 08/24/20 0:04:00 EDT, Weight Dosing famotidine, 20 mg = 1 tab(s), Tab, Oral, Once, Stop date 08/24/20 0:17:00 EDT, STAT, Start date 08/24/20 0:17:00 EDT lidocaine topical, 1 patch(es), Topical, Daily, 7 patch(es), Refill(s) 0, apply 12 hours on and 12 hours off daily, [id number], 163, cm, 08/24/20 0:04:00 EDT, Height/Length Dosing, 101, kg, 08/24/20 0:04:00 EDT, Julian (more content not included)... Normal [facility] Comment on above: Result Comment: Elec [...] Document Reviewed: 11/28/2008 ExitCare? Patient Information ?2015 [employer]. This information is not intended to replace advice given to you by your health care provider. Make sure you discuss any questions you have with your health care provider. Normal [facility] ED Patient Summaryon 021 ED Patient Summary [place] [id number] Patient Discharge Instructions Person Information Name: LILIANA MICHAELS Age: 55 Years Arrival Date: 08/23/2020 23:48:11 Discharge Diagnosis: 1:Rib pain on left side Primary Care Physician: SIMONE JEAN BAPTISTE DC Provider Information Primary Provider: Pia LANE, David Advanced Hims Manager:None The exam and treatment you received in the Emergency Department were for an urgent problem and are not intended as complete care. It is important that you follow up with a doctor, nurse practitioner, or physician?s assistant elementary teacher for ongoing care. If your symptoms become [...] Address: When: SIMONE JEAN BAPTISTE [address] [place] [address] [employer] (1) In 1 day 08/25/2020 Comments: Patient [...] opioids can be used to help relieve cqyzenai-vt-bvsbwv pain and are often prescribed following a [...] be struggling (more content not included)... Normal [facility] PT & PTTon 08-24-2020 aPTT Coag (PPP) [Time] 30.2 second(s) Normal 25.1-36.5 [facility] Comment on above: Result Comment: Hepa rin therapeutic range (represented by Anti-Factor Xa activity of 0.2 - 0.4 U/mL) corresponds to PTT of 56.6 - 109.0 sec. Performed By: #### 1 [id number], 7393262, 1819578, [id number], 5896373, 0569099, [id number], [id number] ####[place] [address] [address] INR Coag (PPP) [Relative time] 1.0 {INR} Invalid Interpretation Code [facility] Comment on above: Result Comment: INR results are specifically intended to assess patients stabilized on long-term Anticoagulation therapy suggested INR?s ?Less Intensive Anticoagulation? 2.0 ? 3.0 Conventional Range 3.0 ? 4.5 Performed By: #### 1 [id number], [id number], 9593157, 53350362, 4337740, 8579249, 66550451, [id number] ####[address] [address] PT Coag (PPP) [Time] 11.6 second(s) Normal 10.2-12.9 [facility] Comment on above: Performed By: #### 1 [id number], 1967909, 0512282, 11868751, 0099424, 6123987, 63206120, [id number] ####[address] [address] RAD - Preliminary Cat Scan R eporton 08-24-2020 RAD - Preliminary Cat Scan Report [id number] Normal [facility] Rapid COVID Antigen ([facility])on 08-24-2020 Rapid COV Int NEG Ctl Pass Normal [facility] Comment on above: Performed By: #### 2 [id number] ####[address] [address] Rapid COV Int POS Ctl Pass Normal [facility] Comment on above: Performed By: #### 2 [id number] ####[address] [address] SARS-CoV-2 (COVID-19) RNA KATT+probe Ql (Unsp spec) Not detected Normal Not Detected [facility] Comment on above: Result Comment: The [employer]? System for Rapid Detection of SARS-CoV-2 is [...] or revoked sooner. Performed By: #### 2 [id number] ####[address] [place] [address] Employed in Healthcare NO Normal [facility] Comment on above: Performed By: #### 2 [id number] ####[address] [place] [address] First Test Unknown [facility] Comment on above: Performed By: #### 2 [id number] ####[address] [place] [address] Hospitalized? NO Normal [facility] Comment on above: Performed By: #### 2 [id number] ####[facility] [address] [place] [address] ICU NO Normal [facility] Comment on above: Performed By: #### 2 [id number] ####[facility] [address] [place] [address] ? NO Normal [facility] Comment on above: Performed By: #### 2 [id number] ####[facility] [address] [place] [address] Resides in a [facility] Care Setting NO Normal [facility] Comment on above: Performed By: #### 2 [id number] ####[address] [address] Symptomatic as defined by [facility] YES Normal [facility] Comment on above: Performed By: #### 2 [id number] ####[address] [address] Troponin 0 Hr.on 08-24-2020 Troponin I.cardiac [Mass/Vol] 4.10 pg/mL Low 15.90-38.40 [facility] Comment on above: Result Comment: The 95% CI (Confidence Interval) PPV (Positive Predictive Value) for myocardial infarction in females is 38 pg/mL, in males 51 pg/mL. The results should be used in conjunction with clinical conditions of myocardial infarction. (Access High Sensitivity Troponin I Instructions For Use, RE2, December 2017) Performed By: #### 1 [id number], 3185784, 1970747, 03037183, 1586798, 9552399, 43160597, 70155064 ####[facility] [address] [place] [address] Troponin 3 Hr.on 08-24-2020 Troponin I.cardiac [Mass/Vol] 4.40 pg/mL Low 15.90-38.40 [facility] Comment on above: Result Comment: The 95% CI (Confidence Interval) PPV (Positive Predictive Value) for myocardial infarction in females is 38 pg/mL, in males 51 pg/mL. The results should be used in conjunction with clinical conditions of myocardial infarction. (Access High Sensitivity Troponin I Instructions For Use, [employer], December 2017) Performed By: #### 1 [id number] ####[facility] [address] [place] [address] XR Chest Single Viewon 08-24 XR Chest [...] V. Transcribed by: VIVIAN Technologist: DAT Perry [facility] eGFRon 08-24-2020 GFR/1.73 sq M.predicted among blacks MDRD (S/P/Bld) [Vol rate/Area] mL/min/{1.73_m2} Normal >=59 [facility] Comment on above: Order Comment: Order added by Discern Expert. Result Comment: eGFR is race adjusted. AA=. Performed By: #### 1 [id number], 7977447, 0781660, 52457414, 3027711, 4176066, 28918718, 67907645 ####[facility] [address] [place] [address] GFR/1.73 sq M.predicted among non-blacks MDRD (S/P/Bld) [Vol rate/Area] mL/min/{1.73_m2} Normal >=59 [facility] Comment on above: Order Comment: Order added by Discern Expert. Result Comment: [employer] Manager jeniffer kidney disease could be indicated at eGFR's of less than 60 mL/min/1.73m2. Kidney failure is indicated at less than 15 mL/min/1.73m2. Performed By: #### 1 [id number], [id number], [id number], [id number], [id number], [id number], [id number], [id number] ####[facility] [address] [place] [address] HIP RIGHT 1 OR 2 VWS WITH PE LVISon 07-24-2020 HIP RIGHT 1 OR 2 VWS WITH PELVIS [facility] Department of Radiology [address] [place] [id number] Patient Name: LILIANA MICHAELS : 1965 [...] Electronically signed: Ana M Mariee. Transcribed by: [email or web address], User Resident: Electronically Signed by: ANA M MARIEE @ 07/24/2020 10:01 AM Normal [facility] Comment on above: Order Comment: Views (X-RAY, HIP): Radiologic Protocol HIP RIGHT 1 OR 2 VWS WITH PE LVISon 04-24-2020 HIP RIGHT 1 OR 2 VWS WITH PELVIS [facility] Department of Radiology [address] [place] [id number] Patient Name: LILIANA MICHAELS : 1965 Sex: M Age: Race: White Pt. Location: Patient Status: D Ordered Date: 04/24/2020 10:40:00 AM Completed Date: 04/24/2020 10:48 AM Requesting Provider: JEY ELISE Attending Provider: Report Copy To: Signs & Symptoms: Z96.641 Presence of right artificial hip joint I10 History: [place] Comments: Views (X-RAY, HIP): Radiologic Protocol Exam: HIP RIGHT 1 OR 2 VWS WITH PELVIS HIP RIGHT 1 OR 2 VWS WITH PELVIS HISTORY: Hip replacement, follow-up. COMPARISON: 03/14/2020. IMPRESSION: 1. Redemonstrated hip prosthesis, no hardware complication or acute abnormality. Electronically signed: Ed España. Transcribed by: [email or web address], User Resident: Electronically Signed by: ED ESPAÑA @ 04/25/2020 08:22 AM Normal [facility] Comment on above: Order Comment: Views (X-RAY, HIP): Radiologic Protocol Operative Reporton 0 Operative Report MR#: [id number] [facility] Pt. Name: Liliana Michaels Room #: 6AB [id number] Discharge 03/15/2020 Date: Birthdate: 1965 OPERATIVE REPORT [...] a (more content not included)... Normal [facility] BASIC METABOLIC PANELon 11-0 7-2020 Calcium [Mass/Vol] 8.8 mg/dL Normal 8.6-10.[address] [facility] Comment on above: Order Comment: Views (X-RAY, HIP): Radiologic Protocol Performed By: #### 0 0071 ####[facility] [facility] [address], [facility] Chloride [Moles/Vol] 98 mmol/L Normal 98-[address] [facility] Comment on above: Order Comment: Views (X-RAY, HIP): Radiologic Protocol Performed By: #### 0 0071 ####[facility] [place] [address], [facility] CO2 [Moles/Vol] 30 mmol/L Normal 21-[address] [facility] Comment on above: Order Comment: Views (X-RAY, HIP): Radiologic Protocol Performed By: #### 0 0071 ####[place] [id number] [place] [address], [facility] Creatinine [Mass/Vol] 0.96 mg/dL Normal 0.70-1.[address] [facility] Comment on above: Order Comment: Views (X-RAY, HIP): Radiologic Protocol Performed By: #### 0 0071 ####[place] [id number] [place] [address], [facility] GFR/1.73 sq M.predicted among blacks MDRD (S/P/Bld) [Vol rate/Area] mL/min/{1.73_m2} Normal >[address] [facility] Comment on above: Order Comment: Views (X-RAY, HIP): Radiologic Protocol Performed By: #### 0 0071 ####[facility] GFR/1.73 sq M.predicted among non-blacks MDRD (S/P/Bld) [Vol rate/Area] mL/min/{1.73_m2} Normal >[address] [facility] Comment on above: Order Comment: Views (X-RAY, HIP): Radiologic Protocol Performed By: #### 0 0071 ####[address] Glucose [Mass/Vol] 151 mg/dL High 70-[address] [facility] Comment on above: Order Comment: Views (X-RAY, HIP): Radiologic Protocol Performed By: #### 0 0071 ####[address] Potassium [Moles/Vol] 4.4 mmol/L Normal 3.5-5.[address] [facility] Comment on above: Order Comment: Views (X-RAY, HIP): Radiologic Protocol Performed By: #### 0 0071 ####[address] Sodium [Moles/Vol] 133 mmol/L Low 136-[address] [facility] Comment on above: Order Comment: Views (X-RAY, HIP): Radiologic Protocol Performed By: #### 0 0071 ####[address] Urea nitrogen [Mass/Vol] 20 mg/dL Normal 7-[address] [facility] Comment on above: Order Comment: Views (X-RAY, HIP): Radiologic Protocol Performed By: #### 0 0071 ####[address] CBC COMPLETE BLOOD COUNTon 05-15-2019 Erythrocyte distribution width (RBC) [Ratio] 12.2 % Normal 11.5-15.[address] [facility] Comment on above: Order Comment: No: D o not add to previous draw Performed By: #### 5 0608 #### [facility] [address] [place] [id number], [facility] Hematocrit (Bld) [Volume fraction] 42.2 % Normal 39.0-50.[address] [facility] Comment on above: Order Comment: No: D o not add to previous draw Performed By: #### 5 0608 #### [facility] [address] [place] [address], [facility] Hemoglobin (Bld) [Mass/Vol] 13.9 g/dL Normal 13.0-17.[address] [facility] Comment on above: Order Comment: No: D o not add to previous draw Performed By: #### 5 0608 #### [facility] [address] [place] [id number], [facility] MCH (RBC) [Entitic mass] 31.4 pg Normal 27.0-33.[address] [facility] Comment on above: Order Comment: No: D o not add to previous draw Performed By: #### 5 0608 #### [facility] [address] [place] [address], [facility] MCHC (RBC) [Mass/Vol] 32.9 g/dL Normal 32.0-35.[address] [facility] Comment on above: Order Comment: No: D o not add to previous draw Performed By: #### 5 0608 #### [facility] [address] [place] [address], [facility] MCV (RBC) [Entitic vol] 95.5 fL Normal 82.0-98.0 T [facility] Comment on above: Order Comment: No: D o not add to previous draw Performed By: #### 5 0608 #### [facility] [address] [place] [id number], [facility] Nucleated RBC/100 WBC (Bld) [Ratio] 0 % Normal 0-[address] [facility] Comment on above: Order Comment: No: D o not add to previous draw Performed By: #### 5 0608 #### [facility] [address] [place] [address], [facility] PLAT CNT 254 10*3/uL Normal 150-[address] [facility] Comment on above: Order Comment: No: D o not add to previous draw Performed By: #### 5 0608 #### [facility] [address] [place] [address], [facility] RBC (Bld) [#/Vol] 4.42 10*6/uL Normal 4.20-5.[address] [facility] Comment on above: Order Comment: No: D o not add to previous draw Performed By: #### 5 0608 #### [facility] [address] [facility] [place] [address], [facility] WBC (Bld) [#/Vol] 14.44 10*3/uL High 4.00-10.[address] [facility] Comment on above: Order Comment: No: D o not add to previous draw Performed By: #### 5 0608 #### [facility] [address] [facility]. [address] POC GLUCOSE LABon 03-15-2020 Glucose [Mass/Vol] 193 mg/dL High 70-[address] [facility] Comment on above: Performed By: #### 8 5499 #### [facility] [address] [facility] [place] [address], [facility] CBC W/DIFFon 03-14-2020 ABS IMM GRANS 0.2 10*3/uL Normal 0.0-0.[address] [facility] Comment on above: Performed By: #### 5 0103 ####[facility] [facility] [place] [address], [facility] ABS NEUTROPHILS 8.0 10*3/uL High 1.6-7.[address] [facility] Comment on above: Performed By: #### 5 0103 ####[facility] [facility] [address], [facility] Basophils (Bld) [#/Vol] 0.1 10*3/uL Normal 0.0-0.[address] [facility] Comment on above: Performed By: #### 5 0103 ####[facility] [facility] [address], [facility] Basophils/100 WBC (Bld) 1.1 % High 0.0-1.[address] [facility] Comment on above: Performed By: #### 5 0103 ####[facility] [facility] [address], [facility] Eosinophils (Bld) [#/Vol] 0.3 10*3/uL Normal 0.0-0.[address] [facility] Comment on above: Performed By: #### 5 0103 ####[facility] [facility] [address], [facility] Eosinophils/100 WBC (Bld) 2.7 % Normal 0.0-6.[address] [facility] Comment on above: Performed By: #### 5 0103 ####[facility] [facility].[address] Erythrocyte distribution width (RBC) [Ratio] 12.3 % Normal 11.5-15.[address] [facility] Comment on above: Performed By: #### 5 0103 ####[facility] [facility] [place] [address], [facility] Hematocrit (Bld) [Volume fraction] 50.5 % High 39.0-50.[address] [facility] Comment on above: Performed By: #### 5 0103 ####[facility] [facility] [place] [address], [facility] Hemoglobin (Bld) [Mass/Vol] 17.3 g/dL High 13.0-17.[address] [facility] Comment on above: Performed By: #### 5 3 ####[facility] IMMATURE GRANS 1.4 % High 0.0-1.[address] [facility] Comment on above: Performed By: #### 5 0103 ####[facility] Lymphocytes (Bld) [#/Vol] 1.8 10*3/uL Normal 1.2-4.[address] [facility] Comment on above: Performed By: #### 5 0103 ####[facility] Lymphocytes/100 WBC (Bld) 15.6 % Low 20.0-45.[address] [facility] Comment on above: Performed By: #### 5 3 ####[address] MCH (RBC) [Entitic mass] 31.7 pg Normal 27.0-33.[address] [facility] Comment on above: Performed By: #### 5 3 ####[facility] MCHC (RBC) [Mass/Vol] 34.3 g/dL Normal 32.0-35.[address] [facility] Comment on above: Performed By: #### 5 3 ####[facility] MCV (RBC) [Entitic vol] 92.7 fL Normal 82.0-98.[address] [facility] Comment on above: Performed By: #### 5 3 ####[facility] [place] [address] Monocytes (Bld) [#/Vol] 0.9 10*3/uL Normal 0.1-1.[address] [facility] Comment on above: Performed By: #### 5 3 ####[address] [place] [address], [facility] MONOS 8.2 % Normal 5.0-12.[address] [facility] Comment on above: Performed By: #### 5 0103 ####[facility] [facility] [place] [place] [address], [facility] Neutrophils/100 WBC (Bld) 71.0 % Normal 40.0-72.[address] [facility] Comment on above: Performed By: #### 5 0103 ####[facility] [facility] [place] [place] [address], [facility] Nucleated RBC/100 WBC (Bld) [Ratio] 0 % Normal 0-[address] [facility] Comment on above: Performed By: #### 5 0103 ####[facility] [facility] [place] [place] [address], [facility] PLAT CNT 301 10*3/uL Normal 150-[address] [facility] Comment on above: Performed By: #### 5 0103 ####[facility] [facility] [place] [address], [facility] RBC (Bld) [#/Vol] 5.45 10*6/uL Normal 4.20-5.[address] [facility] Comment on above: Performed By: #### 5 0103 ####[facility] [facility] [place] [address], [facility] WBC (Bld) [#/Vol] 11.22 10*3/uL High 4.00-10.[address] [facility] Comment on above: Performed By: #### 5 3 ####[place] [id number] [facility] [place] [place] [address], [facility] HIP RIGHT 1 OR 2 VWS WITH PE LVISon 03-14-2020 HIP RIGHT 1 OR 2 VWS WITH PELVIS [facility] Department of Radiology [address] [place] [address] Patient Name: LILIANA MICHAELS : [...] purposes Electronically signed: Aria Steinberg. Transcribed by: [email or web address], User Resident: Electronically Signed by: ARIA STEINBERG @ 03/14/2020 03:44 PM Normal [facility] Comment on above: Order Comment: RT TH A POC GLUCOSE LABon 03-14-2020 Glucose [Mass/Vol] 222 mg/dL High 70-[address] [facility] Comment on above: Performed By: #### 8 5499 #### [facility] [address] [place] [address], [facility] Glucose [Mass/Vol] 217 mg/dL High 70-100 [facility] Comment on above: Performed By: #### 8 5499 ####[facility] [place] [address], [facility] Glucose [Mass/Vol] 141 mg/dL High 70-100 [facility] Comment on above: Performed By: #### 8 5499 #### [facility] [address] [place], [place] [id number] [place] [address] PORTABLE HIP RIGHT 1 OR 2 VW S WITH PELVISon 03-14-2020 PORTABLE HIP RIGHT 1 OR 2 VWS WITH PELVIS [facility] Department of Radiology [address] [place] [address] Patient Name: LILIANA MICHAELS : [...] air Electronically signed: Aria Steinberg. Transcribed by: [email or web address], User Resident: Electronically Signed by: ARIA STEINBERG @ 03/14/2020 03:46 PM Normal [facility] Comment on above: Order Comment: Hardw are Evaluation, AP/Lateral TYPE AND SCREENon 03-14-2020 ABO INTERPRETATION O Normal [facility] Comment on above: Performed By: #### 6 2586 ####[facility] [facility] [place] [address], [facility] RH INTERPRETATION Positive Normal [facility] Comment on above: Performed By: #### 6 2586 ####[facility] [facility] [place] [address], [facility] Vital Signs Date Time Vital Sign Value Performing Clinician Facility 11-09-2023 10:10-040 Body height 162.6 cm Naima Wright APRN-PASSENGER BOOKING CLERK Work Phone: [facility] 11-09-2023 10:10-0400 Body mass index (BMI) [Ratio] 35.27 kg/m2 Naima Wright APRN-PASSENGER BOOKING CLERK Work Phone: [facility] 11-09-2023 10:10-0400 Body weight 93.21 kg Naima Wright UNIT LEADER-PASSENGER BOOKING CLERK Work Phone: [facility] 11-09-2023 10:10-040 Diastolic blood pressure 66 mm[Hg] Naima Wright UNIT LEADER-PASSENGER BOOKING CLERK Work Phone: [facility] 11-09-2023 10:10-040 Heart rate 68 /min Naima Wright UNIT LEADER-PASSENGER BOOKING CLERK Work Phone: [facility] 11-09-2023 10:10-0400 Systolic blood pressure 98 mm[Hg] Naima MURILLO Work Phone: [facility] 08-10-2023 13:31-0400 Body height 162.6 cm Amador Son MD Work Phone: [facility] 08-10-2023 13:31-0400 Body mass index (BMI) [Ratio] 34.67 kg/m2 Amador Son MD Work Phone: [facility] 08-10-2023 13:31-0400 Body weight 91.63 kg Amador Son MD Work Phone: [facility] 08-10-2023 13:31-0400 Diastolic blood pressure 70 mm[Hg] Amador Son MD Work Phone: [facility] 08-10-2023 13:31-0400 Heart rate 69 /min Amador Son MD Work Phone: [facility] 08-10-2023 13:31-0400 Systolic blood pressure 116 mm[Hg] Amador Son MD Work Phone: [facility] 08-05-2023 17:30-0400 Diastolic blood pressure 67 mm[Hg] Amador Son MD Work Phone: [facility] 08-05-2023 17:30-0400 Heart rate 60 /min Amador Son MD Work Phone: [facility] 08-05-2023 17:30-0400 Respiratory rate 16 /min Amador Son MD Work Phone: [facility] 08-05-2023 17:30-0400 SaO2% (BldA) [Mass fraction] 96 % Amador Son MD Work Phone: [facility] 08-05-2023 17:30-0400 Systolic blood pressure 112 mm[Hg] Amador Son MD Work Phone: [facility] 08-05-2023 12:13-0400 Body height 162.6 cm Amador Son MD Work Phone: [facility] 08-05-2023 12:13-0400 Body mass index (BMI) [Ratio] 34.17 kg/m2 Amador Sno MD Work Phone: [facility] 08-05-2023 12:13-0400 Body temperature 97.5 [degF] Amador Son MD Work Phone: [facility] 08-05-2023 12:13-0400 Body weight 90.3 kg Amador Son MD Work Phone: [facility] 07-22-2023 14:38-0400 Body height 162.6 cm Amador Son MD Work Phone: [facility] 07-22-2023 14:38-0400 Body mass index (BMI) [Ratio] 34.33 kg/m2 Amador Son MD Work Phone: [facility] 07-22-2023 14:38-0400 Body weight 90.72 kg Amador Son MD Work Phone: [facility] 07-22-2023 14:38-0400 Diastolic blood pressure 90 mm[Hg] Amador Son MD Work Phone: [facility] 07-22-2023 14:38-0400 Heart rate 41 /min Amador Son MD Work Phone: [facility] 07-22-2023 14:38-0400 Systolic blood pressure 138 mm[Hg] Amador Son MD Work Phone: [facility] 07-14-2022 10:57-0500 Body height 162.56 cm Ishmael Simon Work Phone: [email or web address] [employer] [address] DO Work Phone: 07-14-2022 10:57-0500 Body mass index (BMI) [Ratio] 32.96 kg/m2 Ishmael Simon Work Phone: [email or web address] 600 DO Work Phone: 07-14-2022 10:57-0500 Body surface area Derived from formula 1.92 m2 Ishmael A Naderer Work Phone: [facility] 600 DO Work Phone: 07-14-2022 10:57-0500 Body weight 87.09 kg Ishmael A Naderer Work Phone: [facility] 600 DO Work Phone: 07-14-2022 10:57-0500 Diastolic blood pressure 64 mm[Hg] Ishmael A Naderer Work Phone: [facility] 600 DO Work Phone: 07-14-2022 10:57-0500 Heart rate 34 /min Ishmael A Naderer Work Phone: [facility] [employer] 600 DO Work Phone: 07-14-2022 10:57-0500 Systolic blood pressure 118 mm[Hg] Ishmael A Naderer Work Phone: [facility] [employer] 600 DO Work Phone: 01-28-2022 09:37-0400 Body height 162.56 cm Ishmael A Naderer Work Phone: [facility] [employer] 600 DO Work Phone: 01-28-2022 09:37-0400 Body mass index (BMI) [Ratio] 30.9 kg/m2 Ishmael A Naderer Work Phone: [facility] 600 DO Work Phone: 01-28-2022 09:37-0400 Body surface area Derived from formula 1.87 m2 Ishmael A Naderer Work Phone: [facility] [employer] 600 DO Work Phone: 01-28-2022 09:37-0400 Body weight 81.65 kg Ishmael Carterr Work Phone: [facility] 600 DO Work Phone: 01-28-2022 09:37-0400 Diastolic blood pressure 50 mm[Hg] Ishmael Carterr Work Phone: [facility] 600 DO Work Phone: 01-28-2022 09:37-0400 Heart rate 41 /min Ishmael Carterr Work Phone: [facility] 600 DO Work Phone: 01-28-2022 09:37-0400 Systolic blood pressure 112 mm[Hg] Ish[facility]el [facility]r [facility] Work Phone: Encounters Encounter Date Encounter Type Care Provider Facility Start: 03-30-2024 End: 03-30-2024 Refill Ishmael Simon MD Work Phone: [facility] Comment on above: Degeneration of lumb ar intervertebral disc Start: 03-27-2024 End: 03-27-2024 Patient encounter procedure Ishmael Simon MD Work Phone: [facility] Work Phone: Start: 03-27-2024 End: 03-27-2024 ambulatory Ishmael Simon MD Work Phone: [facility] Work Phone: Start: 03-16-2024 End: 03-16-2024 ambulatory Danielle Bergeron Facility:[facility] Start: 03-16-2024 Non-patient / Non-visit [facility] Start: 03-01-2024 End: 03-01-2024 Refill Ishmael Simon MD Work Phone: [facility] Comment on above: Degeneration of lumb ar intervertebral disc Start: 02-14-2024 End: 02-14-2024 ambulatory [facility] Start: 02-14-2024 End: 02-14-2024 Subsequent hospital visit by physician Varsha Device Remote [facility] Comment on above: Cardiac pacemaker in situ; Sinoatrial node dysfunction (Multi) Start: 02-06-2024 End: 02-06-2024 ambulatory ISHMAEL SIMON Not Available Start: 01-25-2024 End: 01-25-2024 ambulatory [facility] Start: 01-13-2024 End: 01-13-2024 ambulatory ISHMAEL SIMON Not Available Start: 11-09-2023 End: 11-09-2023 Office outpatient visit 40 minutes Naima MURILLO Work Phone: [facility] Comment on above: MRI safe cardiac pac emaker in situ (Primary Dx); Sinus bradycardia; Sick sinus syndrome (Multi); Chronotropic incompetence; Chronic diastolic heart failure (Multi); Essential hypertension, benign; Peripheral vascular disease, unspecified (CMS-HCC); Chronic obstructive pulmonary disease, unspecified COPD type (Multi); Dyspnea on exertion; Obstructive sleep apnea (adult) (pediatric); Current smoker Start: 11-09-2023 End: 11-09-2023 Subsequent hospital visit by physician Varsha [facility] 2 [facility] Comment on above: Pacemaker Start: 11-09-2023 End: 11-09-2023 ambulatory NAIMA WRIGHT [facility] Ambulatory Start: 10-10-2023 End: 10-10-2023 ambulatory ISHMAEL SIMON Not Available Start: 09-26-2023 End: 09-26-2023 ambulatory [facility] Start: 09-26-2023 End: 09-26-2023 Subsequent hospital visit by physician Varsha [facility] Comment on above: Cardiac pacemaker in situ; Sinoatrial node dysfunction (Multi) Start: 08-12-2023 End: 08-12-2023 ambulatory ISHMAEL SIMON [facility] Ambulatory Start: 08-10-2023 End: 08-10-2023 Subsequent hospital visit by physician Varsha Ultrasound 3 [facility] Comment on above: Localized swelling o n left hand; S/P placement of cardiac pacemaker Start: 08-10-2023 End: 08-10-2023 ambulatory [facility] Ambulatory Start: 08-10-2023 End: 08-10-2023 Office outpatient visit 25 minutes Amador Son MD Work Phone: [facility] Comment on above: Chronotropic incompe tence (Primary Dx); Abnormal stress test; Sinus bradycardia; Sick sinus syndrome (CMS/HCC); Essential hypertension, benign; BMI 34.0-34.9,adult; Current smoker Start: 08-05-2023 End: 08-05-2023 Subsequent hospital visit by physician Amador Son MD Work Phone: [facility] Comment on above: Sinus bradycardia (P rimary Dx); Chronotropic incompetence; Sick sinus syndrome (CMS/HCC); Other fatigue; Abnormal stress test; Dyspnea; Pacemaker Start: 07-22-2023 End: 07-22-2023 ambulatory [facility] Ambulatory Start: 07-22-2023 End: 07-22-2023 Encounter for preprocedural cardiovascular examination [facility] Ambulatory Start: 07-22-2023 End: 07-22-2023 Office outpatient new 60 minutes Amador Son MD Work Phone: [facility] Comment on above: Chronotropic incompe tence (Primary Dx); Sinus bradycardia; Establishing care with new doctor, encounter for; BMI 34.0-34.9,adult; Sick sinus syndrome (CMS/HCC); Simple chronic bronchitis (CMS/HCC); Current smoker; Other fatigue; Preoperative cardiovascular examination Start: 07-22-2023 End: 07-22-2023 Patient encounter status Amador Son MD Work Phone: [facility] Work Phone: Start: 07-13-2023 End: 07-13-2023 [...] sit 15 minutes Ishmael Simon Work Phone: [facility] 600 DO Work Phone: Start: 07-14-2022 ambulatory [...] 02-16-2022 Chart Update Ishmael Simon Work Phone: [facility] 250 DO Work Phone: Start: 02-15-[address] Valentino Ty Facility:[id number] Start: 01-28-[address] Ishmael Simon Facility: Start: 01-28-2022 Office consultation new/estab patient 60 min Ishmael Simon Work Phone: [facility] 600 DO Work Phone: Start: 01-14-2022 End: 01-15-2022 ambulatory TERESO COLMENARES . Facility:H1 Start: 01-01-2022 End: 01-02-[address] ISHMAEL SIMON Facility:H1 Start: 12-15-2021 End: 12-15-[address] RICKY IBARRA . Facility:H1 Start: 12-14-2021 Encounter for preprocedural laboratory examination DR RICKY IBARRA . [facility] Start: 12-12-2021 End: 12-13-[address] ISHMAEL SIMON Facility:H1 Start: 12-12-2021 End: 12-13-2021 Encounter for preprocedural laboratory examination DR ISHMAEL SIMON Facility:H1 Start: 12-08-2021 End: 12-08-[address] RICKY IBARRA . Facility:H1 Start: 12-04-2021 End: 12-05-[address] ISHMAEL SIMON Facility: Start: 11-19-2021 End: 11-20-2021 ambulatory TERESO COLMENARES [...] Start: 10-03-2020 End: 10-04-2020 ambulatory SIMONE RUIZ Facility:[facility] Start: 03-26-2020 End: 04-10-2020 ambulatory JEY ELISE Facility:[facility] Start: 03-14-2020 End: 03-15-2020 ambulatory JEY ELISE Facility:[facility] Procedures Date Procedure Procedure Detail Performing Clinician Start: 03-27-2024 MR lumbar spine wo con Ishmael Simon MD Work Phone: Start: 03-27-2024 XR pre/post mri xray Robert Simon MD Work Phone: Start: 02-14-2024 Rem interrog pm/ldls pm/ids <90 d tech review Amador Son MD Work Phone: Start: 11-09-2023 Ecg routine ecg w/le ast 12 lds w/i&r Naima Wright APRN-PASSENGER BOOKING CLERK Work Phone: Start: 11-09-2023 Program eval implant able in persn dual ld pacer Ana M Kumari APRN-PASSENGER BOOKING CLERK Work Phone: Start: 09-26-2023 CARDIAC DEVICE CHECK - REMOTE NAIMA WRIGHT Start: 09-26-2023 CARDIAC DEVICE CHECK - REMOTE Amador Son MD Work Phone: Start: 08-10-2023 VASC US UPPER EXTREM ITY VENOUS DUPLEX LEFT NAIMA WRIGHT Start: 08-10-2023 Dup-scan xtr veins unilateral/limited study Naima Wright UNIT LEADER-PASSENGER BOOKING CLERK Work Phone: Start: 08-05-2023 Radiologic exam ches t single view Ana M Kumari UNIT LEADER-PASSENGER BOOKING CLERK Work Phone: Start: 08-05-2023 Ecg routine ecg w/le ast 12 lds trcg only w/o i&r Ana M Kumari APRN-PASSENGER BOOKING CLERK Work Phone: Start: 08-05-2023 Electrophysiology study Amador Son MD Work Phone: Start: 08-05-2023 Echo tthrc r-t 2d w/ wom-mode compl spec&colr d Ana M Angel APRN-PASSENGER BOOKING CLERK Work Phone: Start: 08-05-2023 Ecg routine ecg w/le ast 12 lds trcg only w/o i&r Ana M Angel APRN-PASSENGER BOOKING CLERK Work Phone: Start: 08-05-2023 Basic metabolic pane l calcium total Ana M Angel UNIT LEADER-PASSENGER BOOKING CLERK Work Phone: Start: 07-22-2023 CASE REQUEST EP LAB MINDI PACO TY Start: 07-22-2023 AMB REFERRAL TO CARD IAC ELECTROPHYSIOLOGY MOBRISA TY Start: 07-22-2023 ECG 12-LEAD MOURHAF TR ABOULSSI Start: 07-22-2023 Ecg routine ecg w/le ast 12 lds w/i&r Amador Son MD Work Phone: Start: 07-13-2023 HOLTER OR EVENT CARD IAC MONITOR VALENTINO TY Start: 07-13-2023 ECG 12-LEAD MOURHAF TR ABOULSSI Start: 05-07-[address] IHSMAEL CROUCH Comment on above: Performed By: #### V ITAD, PSASC #### [facility] [address] [place] [address] Dr. Britt Mendoza Start: 03-15-2020 ANESTH HIP ARTHROPLASTY SIMONE RUIZ Start: 03-15-2020 TOTAL HIP ARTHROPLASTY JEY ELISE Start: 03-14-2020 Antibody screen SIMONE BOLIVAR Comment on above: Performed By: #### 6 [id number] ####[place] [id number] [address] Start: 08-24-2019 Colonoscopy Ishmael faith MD Work Phone: Colonoscopy Ishmael Simon Work Phone: Excision of cyst Ihsmael hutchison Work Phone: Hernia repair Ishmael Simon Work Phone: Operation on urinary system Ishmael Simon Work Phone: Surgical repair of u pper extremity Ishmael Simon Work Phone: Total replacement of hip Lillian Simon Work Phone: Plan of Treatment Date Care Activity Detail Author Start: 08-23-2029 Screening for malignant neoplasm of colon [facility] Start: 08-04-2024 Creatinine measurement Creatinine Level [facility] Start: 08-04-2024 Echocardiography Echocardiogram [facility] Start: 08-04-2024 Potassium measurement Potassium Level [facility] Start: 06-13-2024 End: 06-13-2024 Patient encounter procedure 06/13/2024 9:10 AM EST Office Visit [place] [address] [place] [address] Valentino Ty MD [address] [facility] [address] [place] [address] [facility] Start: 05-25-2024 Urine screening for protein Diabetes: Urine Protein Screening [facility] Start: 05-23-2024 End: 05-23-2024 Patient encounter procedure [facility] Start: 05-17-2024 Glaucoma screening Diabetes: Retinopathy Screening [facility] Start: 05-11-2024 End: 11-08-2024 Cardiac Device Check - In Clinic Cardiac Device Check - In Clinic Implantable Cardiac Device Routine Sinus bradycardia Sick sinus syndrome (Multi) Chronotropic incompetence MRI safe cardiac pacemaker in situ Expected: 05/11/2024 (Approximate), Expires: 11/08/2024 [facility] Service Area Work Phone: Comment on above: Expected: 05/11/2024 (Approximate), Expi res: 11/08/2024 Start: 04-24-2024 End: 04-24-2024 Patient encounter procedure 04/24/2024 11:00 AM EST Office Visit [facility] [address] [place] [address] Ishmael Simon MD [address] [place] [id number] [facility] Start: 04-10-2024 Hemoglobin A1c measurement Diabetes: Hemoglobin A1C [facility] Start: 01-08-2024 COVID-19 Vaccine () COVID-19 Vaccine () [facility] Start: 01-08-2024 Influenza vaccination [facility] Start: 11-21-2023 End: 11-21-2023 Patient encounter procedure 11/21/2023 8:50 AM EDT Office Visit [place] [address] [place] [address] Valentino yT MD [address] [facility] [address], [address] [place] [address] [facility] Start: 11-09-2023 End: 08-04-2024 Cardiac Device Check - In Clinic [facility] Service Area Work Phone: Comment on above: Expected: 11/09/2023 (Approximate), Expi res: 08/04/2024 Start: 11-09-2023 End: 08-04-2024 XR Chest 2 Views [facility] Work Phone: Comment on above: Expected: 11/09/2023, Expires: Once for 1 Occurrenc es starting 11/09/2023 until 11/09/2023 Start: 11-09-2023 End: 11-09-2023 Patient encounter procedure [facility] Start: 11-03-2023 End: 11-03-2023 Patient encounter procedure 11/03/2023 8:50 AM EDT Office Visit [place] [address] [place] [phone] Valentino Ty MD [address] [facility] [address], [address] [place] [address] [facility] Start: 08-12-2023 End: 08-12-2023 Clinical Support 08/12/2023 8:30 AM EDT Clinical Support [facility] [address] [place] [address] [facility] Start: 08-10-2023 Subsequent hospital visit by physician 08/10/2023 2:09 PM EDT Hospital Encounter [facility] [address] [place] [phone] Localized swelling on left hand; S/P placement of cardiac pacemaker [facility] Comment on above: Localized swelling on left hand; S/P placement of cardiac pacemaker Start: 07-22-2023 End: 07-21-2025 US Heart Transthoracic Transthoracic Echo Complete Echocardiography Routine Sinus bradycardia Chronotropic incompetence Sick sinus syndrome (CMS/HCC) Other fatigue Preoperative cardiovascular examination Expected: 07/22/2023 (Approximate), Expires: 07/21/2025 [facility] Work Phone: Comment on above: Expected: 07/22/2023 (Approximate), Expi res: 07/21/2025 Start: 07-13-2023 FUV, Provider: Valentino Ty, Status: Pen, Time: 8:30 AM FUV, Provider: Valentino Ty, Status: Pen, Time: 8:30 AM [facility] 600 DO Work Phone: Start: 01-07-2023 COVID-19 Vaccine ( season) COVID-19 Vaccine ( season) [facility] Start: 01-07-2023 Influenza vaccination Influenza Vaccine (#1) [facility] Start: 07-14-2022 FUV, Provider: Valentino Ty, Status: Pen, Time: 10:40 AM FUV, Provider: Valentino Ty, Status: Pen, Time: 10:40 AM [facility] 600 DO Work Phone: Start: 02-15-2022 STRESS JUICE, Provider: CARLITO MCKEONI NUCLEAR ,[id number], Status: Pen, Time: 2:00 PM STRESS JUICE, Provider: CARLITO HHVI NUCLEAR 01,[id number], Status: Pen, Time: 2:00 PM [facility] 600 DO Work Phone: Start: 02-21-2014 Zoster Vaccines (1 of 2) Zoster Vaccines (1 of 2) [facility] Start: 02-21-1986 DTaP/Tdap/Td Vaccines (1 - Tdap) DTaP/Tdap/Td Vaccines (1 - Tdap) [facility] Start: 02-21-1983 Hepatitis B Vaccines (1 of 3 - 19+ 3-dose series) Hepatitis B Vaccines (1 of 3 - 19+ 3-dose series) [facility] Start: 02-21-1983 Urine screening for protein Diabetes: Urine Protein Screening [facility] Start: 02-21-1982 Diabetes mellitus screening Diabetes Screening [facility] Start: 02-21-1982 Hepatitis C screening Hepatitis C Screening [facility] Start: 02-21-1974 Diabetic foot examination Diabetes: Foot Exam [facility] Start: 02-21-1974 Glaucoma screening Diabetes: Retinopathy Screening [facility] Start: 02-21-1970 Pneumococcal Vaccine: Pediatrics (0 to 5 Years) and At-Risk Patients (6 to 64 Years) (1 - PCV) Pneumococcal Vaccine: Pediatrics (0 to 5 Years) and At-Risk Patients (6 to 64 Years) (1 - PCV) [facility] Start: 02-21-1970 Pneumococcal Vaccine: Pediatrics (0 to 5 Years) and At-Risk Patients (6 to 64 Years) (1 of 2 - PCV) Pneumococcal Vaccine: Pediatrics (0 to 5 Years) and At-Risk Patients (6 to 64 Years) (1 of 2 - PCV) [facility] Start: 02-21-1965 MMR Vaccines (1 of 1 - Standard series) MMR Vaccines (1 of 1 - Standard series) [facility] Start: 1964 COVID-19 Vaccine (#1) COVID-19 Vaccine (#1) [facility] Start: 1964 Creatinine measurement Creatinine Level [facility] Start: 1964 Echocardiography Echocardiogram [facility] Start: 1964 Hemoglobin A1c measurement Diabetes: Hemoglobin A1C [facility] Start: 1964 Hepatitis B Vaccines (1 of 3 - 3-dose series) Hepatitis B Vaccines (1 of 3 - 3-dose series) [facility] Start: 1964 HIV screening HIV Screening [facility] Start: 1964 Lipid panel Lipid Panel [facility] Start: 1964 Medicare Annual Wellness (AWV) Medicare Annual Wellness (AWV) [facility] Start: 1964 Medicare Annual Wellness Visit Medicare Annual Wellness Visit (AWV) [facility] Start: 1964 Potassium measurement Potassium Level [facility] Start: 1964 Screening for malignant neoplasm of colon [facility] End: 07-21-2024 Basic metabolic 2000 panel - Serum or Plasma Basic Metabolic Panel Lab Routine Sinus bradycardia Chronotropic incompetence Sick sinus syndrome (CMS/HCC) Other fatigue 1 Occurrences starting 07/22/2023 until 07/21/2024 [facility] Work Phone: Comment on above: 1 Occurrences starting 07/22/2023 until 07/21/2024 End: 07-21-2024 CBC panel - Blood by Automated count CBC Lab Routine Sinus bradycardia Chronotropic incompetence Sick sinus syndrome (CMS/HCC) Other fatigue 1 Occurrences starting 07/22/2023 until 07/21/2024 [facility] Work Phone: Comment on above: 1 Occurrences starting 07/22/2023 until 07/21/2024 ECG 12 lead (Clinic Performed) ECG 12 lead (Clinic Performed) ECG Routine Sinus bradycardia 11/09/2023 10:38 AM EDT [facility] Work Phone: ECG 12 lead STAT ECG 12 lead STA T ECG STAT 08/05/2023 12:30 PM EDT [facility] Area Work Phone: ECG 12 lead STAT ECG 12 lead STA T ECG STAT 08/05/2023 5:12 PM EDT [facility] Work Phone: PPM IMPLANT DC PPM IMPLANT DC S inus bradycardia Chronotropic incompetence Sick sinus syndrome (CMS/HCC) Other fatigue [facility] Work Phone: End: 07-21-2024 Prothrombin time (PT) Protime-INR Lab Routine Sinus bradycardia Chronotropic incompetence Sick sinus syndrome (CMS/HCC) Other fatigue 1 Occurrences starting 07/22/2023 until 07/21/2024 [facility] Work Phone: Comment on above: 1 Occurrences starting 07/22/2023 until 07/21/2024 Payers Date Payer Category Payer Self-pay 2023 Medicare HUMANA MEDICARE HUMANA GOLD CHOICE [id number] 2023-Present [address] [address] [place] [address] [id number] 2023 Medicare (Managed Care) HUMANA M EDICARE ADVANTAGE [id number] 2023 Medicare [id number] 1965 Unknown [id number] 2.840.1.218845.3.579.2. 647 1964 Unknown [id number] 2.840.1.125167.3.579.2. 647 1964 Unknown [id number] 2.16840.1.725019.3.579.2. 647 1964 Unknown [id number] 2.840.1.187604.3.579.2. 1068 1964 Unknown [id number] 2.16840.1.012433.3.579.2. 356 1964 Unknown [id number] 2.16840.1.010845.3.579.2. 356 1964 Unknown [id number] 2.16840.1.452310.3.579.2. 593 1964 Unknown [id number] 2.840.1.527894.3.579.2. 593 1964 Unknown [id number] 2.16.840.1.506500.3.579.2. 593 1964 Unknown [id number] 2.16.840.1.288245.3.579.2. 593 1964 Unknown [id number] 2.16.840.1.615977.3.579.2. 593 1964 Unknown [id number] 2.16.840.1.693138.3.579.2. 593 1964 Unknown [id number] 2.16.840.1.254809.3.579.2. 593 1964 Unknown [id number] 2.16.840.1.152593.3.579.2. 593 1964 Unknown [id number] 2.16.840.1.187118.3.579.2. 593 1964 Unknown [id number] 2.16.840.1.717752.3.579.2. 593 1964 Unknown [id number] 2.16.840.1.095534.3.579.2. 593 1964 Unknown [id number] 2.16.840.1.599591.3.579.2. 593 1964 Unknown [id number] 2.16.840.1.167797.3.579.2. 593 1964 Unknown [id number] 2.16.840.1.521348.3.579.2. 593 1964 Unknown [id number] 2.16.840.1.779642.3.579.2. 593 1964 Unknown [id number] 2.16.840.1.693985.3.579.2. 593 1964 Unknown [id number] 2.16.840.1.814173.3.579.2. 593 1964 Unknown [id number] 2.16.840.1.897454.3.579.2. 593 1964 Unknown [id number] 2.16.840.1.257076.3.579.2. 593 1964 Unknown [id number] 2.16.840.1.405447.3.579.2. 593 1964 Unknown [id number] 2.16.840.1.830564.3.579.2. 593 1964 Unknown [id number] 2.16.840.1.734087.3.579.2. 593 1964 Unknown [id number] 2.16.840.1.882912.3.579.2. 593 1964 Unknown [id number] 2.16.840.1.699179.3.579.2. 593 1964 Unknown [id number] 2.16.840.1.222961.3.579.2. 1244 1964 Unknown [id number] 2.16.840.1.243606.3.579.2. 1244 1964 Unknown [id number] 2.16.840.1.305172.3.579.2. 1244 1964 Unknown [id number] 2.16.840.1.935837.3.579.2. 1244 1964 Unknown [id number] 2.16.840.1.459505.3.579.2. 1244 1964 Unknown [id number] 2.16.840.1.082000.3.579.2. 1244 1964 Unknown [id number] 2.16.840.1.415491.3.579.2. 1259 1964 Unknown [id number] 2.16.840.1.846023.3.579.2. 1259 1964 Unknown [id number] 2.16.840.1.495826.3.579.2. 1259 1964 Unknown [id number] 2.16.840.1.220561.3.579.2. 1259 1964 Unknown [id number] 2.16.840.1.936194.3.579.2. 1246 1964 Unknown [id number] 2.16.840.1.130511.3.579.2. 1246 1964 Unknown [id number] 2.16.840.1.803449.3.579.2. 1246 1964 Unknown [id number] 2.16.840.1.595369.3.579.2. 1246 1964 Unknown [id number] 2.16.840.1.677322.3.579.2. 1246 1964 Unknown [id number] 2.16.840.1.077769.3.579.2. 1246 1959 Medicaid [id number] 1960 Medicare [id number] Unknown [id number] Unknown Unknown MMO [employer] Access [id number] Unknown [id number] 2.16.840.1.806656.3.579.2. 531 Unknown [id number] 2.16.840.1.672388.3.579.2. 531 Social History Date Type Detail Facility Start: 07-13-2023 End: 08-10-2023 No alcohol use No alcohol use [facility] Healthcare Comment on above: 1 pack daily; Start: 07-13-2023 End: 11-09-2023 Tobacco smoking status NHIS Smokes tobacco daily [facility] History of tobacco use Cigarette Smoker [facility] Work Phone: Start: 07-13-2023 End: 11-09-2023 Tobacco use and exposure Smokeless tobacco non-user [facility] Work Phone: Start: 07-22-2023 End: 11-09-2023 Alcohol intake Lifetime non-drinker (finding) [facility] Work Phone: Start: 07-13-2023 End: 08-10-2023 Tobacco use panel [facility] Start: 1965 Sex Assigned At Not on file [facility] Work Phone: Start: 07-12-2023 End: 11-09-2023 Exposure to SARS-CoV-2 (event) Not sure [facility] Frequency of Social Gatherings with Friends and Family Not on file [facility] Do you belong to any clubs or organizations such as religious groups, unions, fraternal or athletic groups, or school groups? No [...] Not at all [facility] (I/We) worried whemacrina er (my/our) food would run out before (I/we) got money to buy more. Never true [facility] Start: 07-06-2019 Tobacco smoking stat us WAIS Smoker (finding) [facility] Start: 03-17-2024 End: 03-28-2024 Sex Male (finding) [facility] Start: 1965 Sex Assigned At Male F [facility] Medical Equipment Procedure Code Equipment Code Equipment Origin al Text Equipment Identifier Dates Lead, Capsurefix Novus, 52 Cm - [id number] Start: 08-05-2023 Lead, Capsurefix Novus, 45 Cm - [id number] Start: 08-05-2023 Pacemaker, Dual Chamber, [employer] M[employer] Xt Dr - [id number] Start: 08-05-2023 Clinical Notes 08-31-2020 to 11-09-2023 Naima Wright APRN-SHE - 11/09/2023 11:00 AM Scout Son MD - 08/10/2023 12:45 PM EDTPatient Yonatan Souza RN - 08/05/2023 7:45 PM EDTDischarge InstructionsAttachments Note Date & Type Note Facility 11-09-2023 History of Present illness Narrative CARDIOLOGY OFFICE VISIT CHIEF COMPLAINT Chief Complaint Patient presents with Follow-up Pt is here today following up with device check Chief complaint: I am undergoing physical therapy of both of my shoulders and I do not sleep at night because of the pain. HISTORY OF PRESENT ILLNESS HPI History: The patient is a 58-year-old male who is followed for symptomatic bradycardia and chronotropic incompetence. He underwent implantation of a dual-chamber pacemaker on August 05, 2023 and presents to the office today for follow-up evaluation. He states his hearts been doing fine. He has noted improved energy. He states that the rest of my body that is falling apart. He denies cardiac chest pain, palpitations, dizziness, lightheadedness, near or soraida syncope. He does experience mild shortness of breath with exertion and denies orthopnea, abdominal distention, or lower extremity edema. He reports that his insurance will not approve an MRI of his shoulder so he is undergoing physical therapy first. He believes he needs bilateral shoulder replacement surgeries. Past Medical History Past Medical History: Diagnosis Date Arrhythmia CHF (congestive heart failure) (Multi) COPD (chronic obstructive pulmonary disease) (Multi) Hypertension Social History Social History Tobacco Use Smoking status: Every Day Current packs/day: 1.00 Average packs/day: 1 pack/day for 15.0 years (15.0 ttl pk-yrs) Types: Cigarettes Smokeless tobacco: Never Vaping Use Vaping status: Never Used Substance Use Topics Alcohol use: Never Drug [...] Aldactone 100 mg, oral, Daily with breakfast baclofen (Lioresal) 10 mg tablet TAKE 1/2 TO 1 TABLET BY MOUTH TWICE A DAY cetirizine (ZYRTEC) 10 mg, oral, Nightly jaeeimdwemy-lotynkhmt-wxaanwkv (TRELEGY-ELLIPTA) 100-62.5-25 mcg blister with device 1 [...] systems reviewed and are negative. VITALS Vitals: 11/09/23 1010 BP: 98/66 Pulse: 68 PHYSICAL EXAM Vitals and nursing note reviewed. Constitutional: Appearance: Normal appearance. HENT: Head: Normocephalic. Neck: Vascular: No JVD. Carotid upstrokes II/IV. Cardiovascular: Rate and Rhythm: Normal rate and regular rhythm. Pulses: Normal pulses. Heart sounds: Normal S1 S2, no S3 S4. No murmurs or rubs. Pulmonary: Effort: Pulmonary effort is normal. Respirations regular and nonlabored. Breath sounds: Clear to auscultation posterior laterally. Abdominal: General: Bowel sounds are normal. Palpations: Abdomen is soft. Musculoskeletal: General: Normal range of motion. Cervical back: Normal range of motion. Skin: General: Skin is warm and dry. Left subclavian pacemaker pocket is well-healed without redness swelling or drainage. Neurological: General: No focal deficit present. Mental Status: Alert and oriented to person, place, and time. Motor: Motor function is intact. Psychiatric: Attention and Perception: Attention and perception normal. Mood and Affect: Mood and affect normal. Speech: Speech normal. Behavior: Behavior normal. Behavior is cooperative. Thought Content: Thought content normal. Cognition and Memory: Cognition and memory normal. Labs and testing: Twelve-lead EKG reveals atrial pacing and ventricular tracking at 68 bpm, prolonged AV conduction with a KS interval of 220 ms, QRS durations 100 ms, QT 416 ms, QTc 442 ms. No acute ischemic changes are noted. Pacemaker interrogation dated November 09, 2023 reveals atrial pacing 84.2% and ventricular pacing 0.05%. No atrial or ventricular arrhythmic events were noted. Good sensing and capture thresholds. Estimated battery longevity is 13 years and 9 months. PA and lateral chest x-ray reveals good right atrial and right ventricular lead positions. Pulmonary nodules are noted throughout the right lung field. ASSESSMENT AND PLAN Clinical impressions: 1. Chronotropic incompetence and symptomatic sinus bradycardia status post dual-chamber pacemaker implant (Medtronic Kae XT DR MCCORMICK) on August 05, 2023. 2. Normal left ventricular function per 2D echocardiogram dated August 05, 2023. 3. Valvular heart disease consisting of mild thickening of the aortic valve per 2D echocardiogram dated August 05, 2023. 4. CT angio of the coronary arteries dated November, revealed mild irregularities of the coronary arteries with mild to moderate stenosis of the proximal right coronary artery and no significant left coronary stenosis. 5. Chronic obstructive pulmonary disease with ongoing tobacco use. 6. Osteoarthritis of both shoulders undergoing physical therapy. 7. Class II obesity with a BMI 35.27. Recommendations: 1. Continue current medications as prescribed. 2. Obtain a remote device interrogation on February 14, 2024 and in clinic check in 6 months prior to the office visit with Dr. Son. 3. Follow-up in office with Dr. Son in 6 months or sooner if needed. 4. Follow-up in office with Dr. Ty on November 21, 2023 at 8:50 AM as scheduled or sooner if needed. 5. Discussed routine device follow up is scheduled every 3-4 months. Inclinic checks alternate with remote (home) checks. Inclinic checks will be scheduled prior to the office visit with Electrophysiology. 6. Instructed patient to always carry the device card in their wallet. No wanding of the device at the airport or courthouse. Do not carry cell phone in the shirt pocket on the side of the implant. Utilize the ear on the opposite side of the device. Refrain from environments with electromagnetic interference (CRISSY). Evaluation and note by Naima Wright CNP Please excuse any errors in grammar or translation related to this dictation. Voice recognition software was utilized to prepare this document. documented in this encounter [facility] Work Phone: 08-10-2023 History of Present illness Narrative CARDIOLOGY [...] some point he had some evaluation in [place] that shows no significant obstructive coronary disease [...] night however but few episodes in the time study statistician hours were also noted 5. No symptoms [...] Date Arrhythmia CHF (congestive heart failure) ([facility]) COPD (chronic obstructive pulmonary disease) ([facility]) Hypertension Social History Social History Tobacco [...] breakfast cetirizine (ZYRTEC) 10 mg, oral, Nightly heaofjiwmxy-sqjrrrgpn-bthohbkp (TRELEGY-ELLIPTA) 100-62.5-25 mcg blister with device 1 [...] prepare this document. documented in this encounter [facility] Work Phone: 08-10-2023 Instructions Vero Mccarthy [...] Amador Son MD documented in this encounter [facility] Work Phone: 08-05-2023 Nurse Note Patient discharge instructions reviewed with patient and , verbalized understanding. Lt chest dressing remains dry/intact, no hematoma, no ecchymosis. Patient able to teachback site care instructions, follow up appointments. IV x2 removed and patient discharged to home via w/c. [facility] 08-05-2023 Nurse Note Patient discharge instructions [...] Patient ambulated to BR, gait steady. Pacer has already met with patient and . Lt upper chest dressing remains dry/intact. Lt arm in immobilizer and ice pack over site. Sterling from [employer] in room speaking to Pt and SO educating on home device monitor. Pt returned to room after echocardiogram. Denies needs at this time. documented in this encounter [facility] Work Phone: 08-05-2023 Nurse Note Patient sitting up in chair, denies any complaints of incisional pain. Lt upper chest incision remains dry/intact. Will begin discharge instructions. [facility] Work Phone: 08-05-2023 Nurse Note Patient ambulated to , gait steady. Pacer rep has already met with patient and . Lt upper chest dressing remains dry/intact. Lt arm in immobilizer and ice pack over site. [facility] Work Phone: 08-05-2023 Note Formatting of this n ote might be different from the original. Post EKG and CXR performed at bedside. Pt denies needs at this time. Left chest remains soft and stable with no hematoma or oozing. [facility] Work Phone: 08-05-2023 Miscellaneous Notes Post [...] discussed with patient. documented in this encounter [facility] Work Phone: 08-05-2023 Hospital Discharge instructions Ana M Kumari APRN-PASSENGER BOOKING CLERK - 08/05/2023 5:00 PM EDT Images from [...] your arm above shoulder level. Do not spanish moss picker items that weigh greater than 10 [...] have been instructed by the device company medical detail representative regarding remote home monitoring. There are [...] sent through Care Everywhere.Pacemaker Insertion Discharge Instructions (Guyanese)documented in this encounter [facility] Work Phone: 08-05-2023 Note Formatting of [...] Pt denies further needs at this time. [facility] Work Phone: 08-05-2023 Note Table [...] of infection. The patient should call the machinist tool and die immediately if symptoms recur, or for any problems. The patient has been instructed accordingly. 2. Follow up with [facility] office in seven days for post-operative wound [...] model number W1 DR 017 number [id number]. Right atrial lead [employer] 5076/45 serial number [id number] 8 mm [id number]. Imp (more content not included)... SYNGO_SECTRA_CARDIOLAB_XP ER 08-05-2023 Note Formatting of this n ote might be different from the original. Sedation Plan ASA 2 Mallampati class: II. Risks, benefits, and alternatives discussed with patient. [facility] Work Phone: 08-05-2023 Attending History and [...] some point he had some evaluation in [place] that shows no significant obstructive coronary disease [...] night however but few episodes in the time study statistician hours were also noted 5. No symptoms [...] breakfast cetirizine (ZYRTEC) 10 mg, oral, Nightly ymqvrqsnpgz-aizoiyowm-uvqpeqis (TRELEGY-ELLIPTA) 100-62.5-25 mcg blister with device 1 [...] software was utilized to prepare this document. [facility] Work Phone: 08-05-2023 History and physical [...] some point he had some evaluation in [place] that shows no significant obstructive coronary disease [...] night however but few episodes in the time study statistician hours were also noted 5. No symptoms [...] breakfast cetirizine (ZYRTEC) 10 mg, oral, Nightly tqnmhfsuuyg-mvfuxsfff-hwgcastb (TRELEGY-ELLIPTA) 100-62.5-25 mcg blister with device 1 [...] prepare this document. documented in this encounter [facility] Work Phone: 08-05-2023 Nurse Note Sterling from [employer] in room speaking to Pt and SO educating on home device monitor. [facility] 08-05-2023 Nurse Note Pt returned to room after echocardiogram. Denies needs at this time. [facility] Work Phone: 07-22-2023 History of Present [...] some point he had some evaluation in [place] that shows no significant obstructive coronary disease [...] night however but few episodes in the time study statistician hours were also noted 5. No symptoms [...] breakfast cetirizine (ZYRTEC) 10 mg, oral, Nightly wqyrhscqmpt-uyfzlvzdr-xdrkvpjf (TRELEGY-ELLIPTA) 100-62.5-25 mcg blister with device 1 [...] prepare this document. documented in this encounter [facility] Work Phone: 07-22-2023 Instructions Jazz Flynn [...] AMADOR SON MD documented in this encounter [facility] Work Phone: 07-20-2022 Note CONSULTATION PROCEDURE [...] right medial portion of his leg. [facility] 05-07-2022 Note CONSULTATION CONSULTATION DATE: 05/07/2022 [...] three months' time unless otherwise indicated. [facility] 01-14-2022 Note CONSULTATION CONSULTATION DATE: 01/14/2022 [...] it was recommended that he see a resident in diagnostic radiology, which he did do. He did a Holter monitor study and is following up with his resident in diagnostic radiology on 01/28/2022. Current medications include gabapentin 300 [...] agrees with the plan of care. [facility] 11-19-2021 Note CONSULTATION CONSULTATION DATE: 11/19/2021 [...] to S1. Activities such as standing, walking, time study statistician and evening hours, stairs, bending and physical [...] be followed up in the clinic post-procedure. [facility] Signed and Approved by: TERESO COLMENARES . 11/27/2021 14:13:00 [facility] 10-22-2021 Note CONSULTATION CONSULTATION DATE: 10/22/2021 [...] patient agrees with the plan of care. [facility] Signed and Approved by: TERESO COLMENARES . 11/04/2021 16:23:00 [facility] 10-01-2021 Note CONSULTATION CONSULTATION DATE: 10/01/2021 [...] shape. He has seen Dr. Nunn in [place] in the past regarding his back, and [...] Patient agrees with the plan of care. [facility] Signed and Approved by: TERESO COLMENARES . 10/08/2021 16:01:00 [facility] 08-31-2020 Note Microbiology PROCEDURE: Blood Culture [...] Locations R1: This test was performed at: [employer], [address] [place] [address], [id number] [place] [address], [facility] Comment on above: Performed By: #### 1 [id number] ####[id number] [place] [address] 08-31-2020 Note Microbiology PROCEDURE: Blood Culture Charcoal [...] Locations R1: This test was performed at: [facility], [address] [place] [address], [address] [place] [address], [facility] Comment on above: Performed By: #### 1 [id number] ####[address] [address] Evaluation note Diagnosis 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 Sinus bradycardia Other specified cardiac dysrhythmias Establishing care with new doctor, encounter for BMI 34.0-34.9,adult Sick sinus syndrome (CMS/HCC) Sinoatrial node dysfunction Simple chronic bronchitis (CMS/HCC) Simple chronic bronchitis Current smoker Other fatigue Preoperative cardiovascular examination Pre-operative cardiovascular examination documented in this encounter [facility] Work Phone: Evaluation note* Diagnosis Other [...] dysfunction Other fatigue documented in this encounter [facility] Work Phone: Evaluation note* Diagnosis Localized swelling on left hand S/P placement of cardiac pacemaker 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 Abnormal stress test Other nonspecific abnormal cardiovascular system function study Sinus bradycardia Other specified cardiac dysrhythmias Sick sinus syndrome (CMS/HCC) Sinoatrial node dysfunction Essential hypertension, benign BMI 34.0-34.9,adult Current smoker documented in this encounter [facility] Work Phone: Evaluation note* Diagnosis Localized swelling on left hand S/P placement of cardiac pacemaker documented in this encounter [facility] Work Phone: Evaluation note* Diagnosis Cardiac pacemaker in situ Sinoatrial node dysfunction (Multi) Sinoatrial node dysfunction documented in this encounter [facility] Work Phone: Evaluation note* Diagnosis Cardiac pacemaker in situ Sinoatrial node dysfunction (Multi) Sinoatrial node dysfunction documented in this encounter [facility] Work Phone: Evaluation note* Diagnosis Type 2 diabetes mellitus with hyperglycemia, without long-term current use of insulin (CMS/[facility])- Primary Essential hypertension, benign (CMS/HCC) Essential hypertension, [...] lumbosacral intervertebral disc documented in this encounter [facility] HealthcareEvaluation noteNo assessment information availableL[facility] Work Phone: Evaluation note* Diagnosis MRI safe cardiac pacemaker in situ- Primary Sinus bradycardia Other specified cardiac dysrhythmias Sick sinus syndrome (Multi) Sinoatrial node dysfunction Chronotropic incompetence Other specified conduction disorder Chronic diastolic heart failure (Multi) Chronic diastolic heart failure Essential hypertension, benign Peripheral vascular disease, unspecified (CMS-HCC) Peripheral vascular disease, unspecified Chronic obstructive pulmonary disease, unspecified COPD type (Multi) Dyspnea on exertion Other dyspnea and respiratory abnormality Obstructive sleep apnea (adult) (pediatric) Current smoker documented in this encounter [facility] Work Phone: Evaluation note* Diagnosis Pacemaker Cardiac pacemaker in situ documented in this encounter [facility] Work Phone: History of Present illness Narrative* Patient is here for cardiovascular evaluation for second opinion in regard to documents resting sinus bradycardia. The patient is 56-year-old with history of tobacco use and COPD was evaluated recently due to shortness of breath and his stress test showed questionable inferior wall ischemia. This led to a cardiac evaluation in [place] and its not clear to me whether [...] ischemic evaluation * 5 follow-up in [address] [place] [address] 600 DO Work Phone: History of Present illness Narrative* Patient is here for cardiovascular evaluation for second opinion in regard to documents resting sinus bradycardia. The patient is 56-year-old with history of tobacco use and COPD was evaluated recently due to shortness of breath and his stress test showed questionable inferior wall ischemia. This led to a cardiac evaluation in [place] and its not clear to me whether [...] ischemic evaluation * 5 follow-up in 6 [facility] Work Phone: History of Present illness Narrative* Patient is here for cardiovascular evaluation for second opinion in regard to documents resting sinus bradycardia. The patient is 56-year-old with history of tobacco use and COPD was evaluated recently due to shortness of breath and his stress test showed questionable inferior wall ischemia. This led to a cardiac evaluation in [place] and its not clear to me whether [...] ischemic evaluation * 5 follow-up in 6 [facility] Work Phone: History of Present illness [...] ischemic evaluation. He underwent cardiac catheterization in [place] which showed no significant obstructive disease * [...] EKG or earlier if the need arise [facility] 600 DO Work Phone: Summary Purpose Family History Unknown Family Member Name Dates Details Mental problem: Mother Status:Active Unknown Family Member Name Dates Details Mental problem: Mother Status:Active Unknown Family Member Name Dates Details Mental problem: Mother Status:Active Unknown Family Member Name Dates Details Mental problem: Mother Status:Active Unknown Family Member Name Dates Details Mental problem: Mother Status:Active Advance Directives Latest Code Status on File Code Status [...] LILIANA MICHAELS is being seen for npv/ jenelle.LILAINA MICHAELS is being seen for npv/ jenelle.LILIANA MICHAELS is being seen for npv/ jenelle.LILIANA MICHAELS is being seen for a month follow-up of. Reason for Referral Specialty Diagnoses / Procedures Referred By Contac t Referred To Contact Cardiology Diagnoses Sinus bradycardia Chronotropic incompetence Sick sinus syndrome (CMS/HCC) Other fatigue Preoperative cardiovascular examination Procedures Transthoracic Echo Complete KS ECHO TTHRC R-T 2D W/WOM-MODE COMPL SPEC&COLR D Amador Son MD [address] [address] Referral ID Status Reason Start Date Expiration Date Visits Requested Visits Authorized [id number] Pending Review Perform Procedure 07/22/2023 07/21/2024 1 1 Specialty Diagnoses / Procedures Referred By Contac t Referred To Contact Diagnoses Sinus bradycardia Establishing care with new doctor, encounter for Procedures ECG 12 lead (Clinic Performed) Amador Son MD [address] [address] Referral ID Status Reason Start Date Expiration Date V isits Requested Visits Authorized [id number] Authorized 07/22/2023 07/21/2024 1 1 Specialty Diagnoses / Procedures Referred By Contac t Referred To Contact Radiology Diagnoses Pacemaker Procedures XR chest 2 views Ana M Kumari, UNIT LEADER-PASSENGER BOOKING CLERK [address] [facility], [address] [address] Referral ID Status Reason Start Date Expiration Date Visits Requested Visits Authorized [id number] Authorized Perform Procedure 08/05/2023 08/04/2024 1 1 Specialty Diagnoses / Procedures Referred By Contac t Referred To Contact Cardiology Diagnoses Pacemaker Procedures Cardiac Device Check - In Clinic Ana M Kumari UNIT LEADER-PASSENGER BOOKING CLERK [address] [facility] Medical Office [facility], [address] [address] Referral ID Status Reason Start Date Expiration Date Visits Requested Visits Authorized [id number] Pending Review Perform Procedure 08/05/2023 08/04/2024 1 1 Specialty Diagnoses / Procedures Referred By Contac t Referred To Contact Cardiology Diagnoses Localized swelling on left hand S/P placement of cardiac pacemaker Procedures Vascular US upper extremity venous duplex left Naima Wright, UNIT LEADER-PASSENGER BOOKING CLERK [address] [facility] Medical Office [facility], [address] [place] [address] Referral ID Status Reason Start Date Expiration Date Visits Requested Visits Authorized [id number] Authorized Perform Procedure 08/09/2023 08/08/2024 1 1 Specialty Diagnoses / Procedures Referred By Contac t Referred To Contact Cardiology Diagnoses Cardiac pacemaker in situ Sinoatrial node dysfunction (Multi) Procedures Cardiac Device Check - Remote Amador Son MD [address] [address] Referral ID Status Reason Start Date Expiration Date Visits Requested Visits Authorized [id number] Pending Review Perform Procedure 08/08/2023 08/07/2024 1 1 Specialty Diagnoses / Procedures Referred By Contac t Referred To Contact Cardiology Diagnoses Sinus bradycardia Sick sinus syndrome (Multi) Chronotropic incompetence MRI safe cardiac pacemaker in situ Procedures Cardiac Device Check - In Clinic Naima Wright, UNIT LEADER-PASSENGER BOOKING CLERK [address] [facility], [address] [address] Referral ID Status Reason Start Date Expiration Date Visits Requested Visits Authorized [id number] Pending Review Perform Procedure 11/09/2023 11/08/2024 1 1 Specialty Diagnoses / Procedures Referred By Contac t Referred To Contact Cardiology Diagnoses Sick sinus syndrome (Multi) MRI safe cardiac pacemaker in situ Procedures Follow Up In Cardiology Naima Wright, UNIT LEADER-PASSENGER BOOKING CLERK [address] [facility], [address] [address] Amador Son MD [address] [address] Referral ID Status Reason Start Date Expiration Date V isits Requested Visits Authorized [id number] Authorized 11/09/2023 11/08/2024 1 1 Specialty Diagnoses / Procedures Referred By Contac t Referred To Contact Diagnoses Sinus bradycardia Procedures ECG 12 lead (Clinic Performed) Naima Wrigth UNIT LEADER-PASSENGER BOOKING CLERK [address] [facility], [address] [address] Referral ID Status Reason Start Date Expiration Date V isits Requested Visits Authorized [id number] Authorized 11/09/2023 11/08/2024 1 1 Chief Complaint and Reason for [...] section and content) DATE CREATED AUTHOR 03/06/2021 [facility] DATE CREATED AUTHOR AUTHOR'S ORGANIZ ATION 03/12/2021 [facility] DATE CREATED AUTHOR AUTHOR'S ORGANIZ ATION 02/16/2022 [facility] DATE CREATED AUTHOR AUTHOR'S ORGANIZ ATION 07/16/2022 [facility] DATE CREATED AUTHOR AUTHOR'S ORGANIZ ATION 07/16/2022 [employer] DATE CREATED AUTHOR AUTHOR'S ORGANIZ ATION 09/17/2022 [facility] pital DATE CREATED AUTHOR AUTHOR'S ORGANIZ ATION 11/10/2023 [facility] DATE CREATED AUTHOR AUTHOR'S ORGANIZ ATION 02/07/2024 [facility] EPIC DATE CREATED AUTHOR AUTHOR'S ORGANIZ ATION 03/04/2024 [facility] DATE CREATED AUTHOR AUTHOR'S ORGANIZ ATION 04/03/2024 [facility] y[facility] Reason for Visit (unrecogniz ed section and content) Reason Comments New Patient Visit Pt is here today as a new patient from Dr. Ty Specialty Diagnoses / Procedures Referred By Isela mckay Referred To Contact Cardiology Diagnoses Sinus bradycardia Valentino Ty MD [address] [facility] 2, [address] [place] [address] Amador Son MD [address] [facility] Medical [facility], [address] [place] [address] Referral ID Status Reason Start Date Expiration Date Visits Requested Visits Authorized [id number] Authorized Specialty Services Required 07/15/2023 07/14/2024 1 1 Specialty Diagnoses / Procedures Referred By Katyac t Referred To Contact Diagnoses Sinus bradycardia Chronotropic incompetence Sick sinus syndrome (CMS/HCC) Other fatigue Sinus bradycardia [R00.1] Chronotropic incompetence [I45.89] Sick sinus syndrome (CMS/HCC) [I49.5] Other fatigue [R53.83] Procedures KS INS NEW/RPLCMT PRM PM W/TRANSV ELTRD ATRIAL&VENT PPM IMPLANT DUAL Amador Son MD 254 [facility] [address] [place] [address] [facility] [address] [place] [address] Referral ID Status Reason Start Date Expiration Date Visits Re quested Visits Authorized [id number] 1 1 Reason Comments Wound Check Patient is having sw elling in his right hand Specialty Diagnoses / Procedures Referred By Isela t Referred To Contact Cardiology Diagnoses Localized swelling on left hand S/P placement of cardiac pacemaker Procedures Vascular US upper extremity venous duplex left Naima Wright E, UNIT LEADER-PASSENGER BOOKING CLERK [address] [facility] Medical Office [facility], [facility] [address] [place] [address] Referral ID Status Reason Start Date Expiration Date Visits Requested Visits Authorized [id number] Authorized Perform Procedure 08/09/2023 08/08/2024 1 1 Specialty Diagnoses / Procedures Referred By Isela t Referred To Contact Cardiology Diagnoses Cardiac pacemaker in situ Sinoatrial node dysfunction (Multi) Procedures Cardiac Device Check - Remote Amador Son MD 917 [facility] [address] [place] [address] Referral ID Status Reason Start Date Expiration Date Visits Requested Visits Authorized [id number] Pending Review Perform Procedure 08/08/2023 08/07/2024 1 1 Reason Onset Date Comments Med Refill 03/01/2024 Reason Onset Date Comments Med Refill 03/30/2024 Reason Comments Follow-up Pt is here today fol lowing up with device check Specialty Diagnoses / Procedures Referred By Contac t Referred To Contact Diagnoses Sinus bradycardia Procedures ECG 12 lead (Clinic Performed) Naima Wright, [facility] [address] [facility], [address] [address] Referral ID Status Reason Start Date Expiration Date V isits Requested Visits Authorized [id number] Authorized 11/09/2023 11/08/2024 1 1 Specialty Diagnoses / Procedures Referred By Contac t Referred To Contact Cardiology Diagnoses Pacemaker Procedures Cardiac Device Check - In Clinic QuocAna M Echo, [facility] [address] [facility], [address] [address] Referral ID Status Reason Start Date Expiration Date Visits Requested Visits Authorized [id number] Pending Review Perform Procedure 08/05/2023 08/04/2024 1 1 Specialty Diagnoses / Procedures Referred By Contac t Referred To Contact Radiology Diagnoses Pacemaker Procedures XR chest 2 views Ana M Kumari, [facility] [address] [facility], [address] [address] Referral ID Status Reason Start Date Expiration Date Visits Requested Visits Authorized [id number] Authorized Perform Procedure 08/05/2023 08/04/2024 1 1 Care Teams (unrecognized sec tion and content) Chief Clinical Officer Relationship Specialty Start Date End Date Ishmael Simon MD [address] [place] [id number] PCP - General Family Medicine 06/29/23 Chief Clinical Officer Relationship Specialty Start Date End Date Ishmael Simon MD [address] [place] [address] PCP - General Family Medicine 06/29/23 Chief Clinical Officer Relationship Specialty Start Date End Date Ishmael Simon MD [address] [place] [address] PCP - General Family Medicine 06/29/23 Chief Clinical Officer Relationship Specialty Start Date End Date Ishmael Simon MD [address] [place] [address] PCP - General Family Medicine 06/29/23 Chief Clinical Officer Relationship Specialty Start Date End Date Ishmael Simon MD PCP - General Family Medicine 06/29/23 Chief Clinical Officer Relationship Specialty Start Date End Date Ishmael Simon MD [address] [place] [address] PCP - General Family Medicine 06/29/23 Naima Wright, LYNN-PASSENGER BOOKING CLERK [address] [facility] Medical Office Bldg, [address] [place] [address] Nurse Practitioner Cardiology 11/07/23 Chief Clinical Officer Relationship Specialty Start Date End Date Ishmael Simon MD [address] [place] [address] PCP - General Family Medicine 10/10/23 Team [...] March 27, 2024 End: March 27, 2024 Chief Clinical Officer Relationship Specialty Start Date End Date Ishmael Simon MD [address] [place] [address] PCP - [facility] 06/29/23 Naima Wright, UNIT LEADER-PASSENGER BOOKING CLERK [address] [place] [address], [address] [address] Nurse Practitioner Cardiology 11/07/23 Chief Clinical Officer Relationship Specialty Start Date End Date Ishmael Simon MD [address] [place] [address] PCP - [facility] 06/29/23 Naima Wright, UNIT LEADER-PASSENGER BOOKING CLERK [address] [place] [address], [address] [address] Nurse Practitioner Cardiology 11/07/23 Scheduled Active and [...] 1230 (New Bag - Prov ider: Racheal Rosen RT)1300 (Stopped - Provider: Lottie Ferreira RN) [...] obtained first. 1221 (Given - Provid er: eLxi Araiza RN) perflutren lipid microspheres (Definity) injection [...] on Tue08/05/23 at 1230, Preprocedure, call center representative to EP lab 1221 (New Bag - Prov ider: Lexi Araiza RN)1659 (Due: Stopped - Provider: Ana M M Quoc, UNIT LEADER-PASSENGER BOOKING CLERK) PRN Medication Order 08/03/2023 08/04/2023 08/05/2023 acetaminophen [...] BE BASED ON THE PRIMARY CLINICAL RECORDS. [employer] provides no warranty or guarantee of the accuracy or completeness of information in this document.
[2024-04-24 12:23] LABS: Estimated Average Glucose 131 mg/dL; Glycohemoglobin A1C 6.2 % (4.5-6.2)
== END 2024-04-24 11:53 | disposition home or self-care (01) ==
LOC: LAB 11:53
PROVIDERS: PCP Family Medicine; Visit Provider Family Medicine
DX: E11.65 Type 2 diabetes mellitus with hyperglycemia (principal)
CPT/HCPCS: 36415; 83036

== ENCOUNTER 2024-04-24 14:09 | Outpatient (OUT) | payer MEDICARE, SELFPAY ==
--- NOTE | 2024-04-24 | CONS_ITS ---
CONSULTATION DATE: 04/24/2024 TO: Dr. Watts CHIEF COMPLAINT: Includes right leg pain, right groin pain. HISTORY: He reports the pain as being 1-7/10, described as a tightness which is increased with activity such as walking. He feels most comfortable in the semi- recumbent position. Denies any change in bowel and bladder habits or new sensorimotor change in the lower extremities. He has undergone one right sided L2 and L3 transforaminal epidural steroid injection, and he reports he had 100% reduction of pain symptoms, but only lasting for a short period of time. He had marked improvement for 3-4 days, with the recurrence of pain back to his baseline. CURRENT MEDICATION: Includes Aleve two pills daily p.r.n., baclofen 10 mg b.i.d., gabapentin 300 mg daily. We have been unable to increase his dose secondary to side effects, such as headache. Nabumetone 400 b.i.d. and Percocet 7.5 up to q. 6 hours. EXAM: Notable for patient having hypoesthesia along the right L2 and L3 dermatome, weakness of the right iliopsoas muscle, depressed right patellar reflex. Reverse straight leg raise is positive. IMPRESSION: Our impression is patient appears to have right side L2-L3 radiculopathy from arachnoiditis. RECOMMENDATIONS: He is unable to tolerate increasing the gabapentin. Will trial him on Zonegran 50 mg daily for seven days and will titrate this every seven days, until he reaches the maximum of 150 mg daily. I recommend no further intervention for the patient?s pain symptoms at this current time, and he is also not considering any surgical options for his pain symptoms. Will see the patient back in the office in eight weeks? time or sooner if needed. As part of providing excellent, safe, comprehensive care, the following was completed at our patient's visit: 1. A medication reconciliation and review to ensure accurate knowledge of current/active medications, including asking our patients to inform us about any [id number] medications or herbal remedies/nutritional supplements/alternative remedies. 2. A review to specifically ensure our patients have had annual screening for: elevated body mass index (BMI, see intake chart for exact total), tobacco use, screening for depression, and screening for unhealthy alcohol use. When screening is concerning, patients are provided with education and the specific recommendation to discuss the concerning health issue and treatment options with their primary care provider. JOHND
--- OUTSIDE RECORDS SUMMARY | 2024-04-24 14:32 | XMS_ITS | CCD ---
Author Organization [facility] Care Team Providers Care Family Consultant Name Role Phone SIMONE RUIZ Admitting Unavailable SIMONE RUIZ Attending Unavailable ISHMAEL SIMON Referring Unavailable ISHMAEL SIMON Primary Care Unavailable JEY ELISE Attending Unavailable JEY ELISE R Surgeon Unavailable UT Procedure Practitioner Unavailab ISHMAEL Campoverde Primary Care Unavailable ISHMAEL SIMON Referring Unavailable JEY ELIES R Admitting Unavailable JEY ELISE R Attending [...] e VALENTINO TY Referring Unavailable NADERER, ISHMAEL [place] Primary [facility] [place] Unavailabl e SON, AMADOR N Attending Unavailable NADERER, [facility] Care Unavailabl e BETHANY TYF Referring Unavailable SON, AMADOR N Attending Unavailable NADERER, [facility] Primary Care Unavailabl e NADERER, [facility] Primary Care Unavailabl e ADRIANA, NAIMA E Attending Unavaila ble NADERER, ISHMAEL [place] Primary Care Unavailabl e NADERER, ISHMAEL Attending Unavailable NADERER, ISHMAEL Attending Unavailable NADERER, ISHMAEL Attending Unavailable NADERER, ISHMAEL Attending Unavailable Naderer Ishmael LANEony Primary Care Provider Adriana PECAN CLEANER-UPHOLSTERER LIMOUSINE AND HEARSE, Naima E Unavailable Ishmael Simon MD [facility] Care Provider EARL WRIGHTCI E Referring Unavaila ble NADERER, ISHMAEL [place] Primary [facility] [place] Unavailabl e SON, AMADOR N Referring Unavailable NADERER, [facility] Unavailabl e ANA M KUMARI Referring Unavailable NADERER, [facility] Unavailabl e ANA M KUMARI Referring Unavailable NADERER, [facility] Unavailabl e SON, AMADOR N Referring Unavailable NADERER, [facility] Unavailabl e SON, AMADOR N Referring Unavailable NADERER, [facility] Unavailabl e Raulr Ishmael LANE Primary Care Provider Danielle Contreras Attending Provider Danielle Bergeron Attending Unavailable RaulrIshmael Primary Care Unavailable Danielle Bergeron Admitting Unavailable Danielle Bergeron Attending Unavailable Chloeerer, [facility] Primary [facility] [place] Unavailable Danielle Bergeron Admitting Unavailable Medications Current [...] 90 Refills: 0 Ordered: 28-Jan-2022 DO Active Wgmokgtmfes-Uerrtgowu-Qgrvmu er (19 sources) Anticholinergic, Corticosteroid, beta2-Adrenergic Agonist Start: 07-06-2019 Pryvnpfyoie-Sgjlnrjbm-Gvqedp er (Trelegy Ellipta) 100-62.5-25 mcg blister with device Active 1 MCG INHALATION As Directed July 06, 2019 12:00am take 1 dose by inhal ation in the morning Hvascnnsvmj-Ntjkekrwe-Uxmnae (Trelegy El lipta) 100-62.5-25 MCG/ACT aerosol powder [...] 2018 12:00am take 1 capsule by mo [facility] once daily omeprazole (PriLOSEC) [address] [...] 1 capsule by inhalation once daily Tiotropium [place] (Spiriva With Handihaler) 18 mcg capsule, w/inhalation [...] 07-22-2023 Episodic Other aftercare (1 source) Other intermission coordinator (current) drug therapy; Translations: [OTH DETENTION CURRENT DRUG THERAPY] Onset: 05-13-2022 Episodic Other aftercare (2 sources) Long-term current use of drug therapy; Translations: [Other prison (current) drug therapy] Onset: 04-13-2023 04-13-2023 Episodic [...] Facility Magnetic resonance imaging r eportOrdered By: Gremán Murphy on 03-27-2024 Study report [facility] [address] [place] [address] MRI Report Signed Patient: Liliana Michaels JR MR#: [id number] : 1965 Acct:[id number] Age/Sex: 59 / M ADM Date: 4 Loc: MR Room: Type: [facility] Attending Dr: Danielle GAYTAN Copies to: LUKAS Burns~ Ordering Provider: LUKAS Burns Date of Service: 03/27/24 MR/MR lumbar spine wo con: LUMBAR DDD ([id number]) XR/XR pre/post mri xray: LUMBAR DDD MRI [...] Murphy Jr., D.OAtiya03/27/2024 11:57 AM Dictation Location: [place] [address] Transcribed By: [facility] 03/27/24 1157 Dictated By: Germán Murphy Jr, DO 03/27/24 1148 Signed By: 03/27/24 1157 [facility] XR pre/post mri xrayon 03-27 XR pre/post mri xray [facility] [address] [place] [address] MRI Report Signed Patient: Liliana Michaels JR MR#: [id number] : 1965 Acct:[id number] Age/Sex: 59 / M ADM Date: 03/27/24 Loc: MR Room: Type: [facility] Attending Dr: Danielle GAYTAN Copies to: LUKAS Burns Ordering Provider: LUKAS Burns Date of Service: 03/27/24 MR/MR lumbar spine wo con: LUMBAR DDD ([id number]) XR/XR pre/post mri xray: LUMBAR DDD MRI [...] Murphy Jr., D.O.03/27/2024 11:57 AM Dictation Location: [place] [address] Transcribed By: [facility] 03/27/24 1157 Dictated By: Germán Murphy Jr, DO 03/27/24 1148 Signed By: 03/27/24 1157 Normal [facility] XR chest 2V*on 03-16-2024 XR chest 2V* [facility] [address] [place] [address] XRay Report Signed Patient: Liliana Michaels JR MR#: [id number] : 1965 Acct:[id number] Age/Sex: 59 / M ADM Date: 03/16/24 Loc: [facility] Room: Type: [facility] Attending Dr: Danielle GAYTAN Copies to: LUKAS [...] Elia Rodrigez M.D.03/16/2024 8:54 AM Dictation Location: [place] [address] Transcribed By: [facility] 03/16/24853 Dictated By: Elia Rodrigez DO 03/16/24 0849 Signed By: 03/16/24 0854 Normal [facility] Cardiac Device Check - Remot neeta 02-14-2024 [facility] Work Phone: Radiology Study observation (narrative) [facility] Work Phone: XR CHEST 2 VIEWSon 4 XR CHEST 2 VIEWS Interpreted By: Sancho Gross, STUDY: XR CHEST 2 VIEWS; 11/09/2023 9:46 am INDICATION: Signs/Symptoms:Pacem marilyn. COMPARISON: 08/05/2023 ACCESSION NUMBER(S): [id number] ORDERING CLINICIAN: ANA M KUMARI FINDINGS: Left-sided pacemaker in place. CARDIOMEDIASTINAL SILHOUETTE: Cardiomediastinal silhouette is normal in size and configuration. LUNGS: Lungs are clear. ABDOMEN: No remarkable upper abdominal findings. BONES: No acute osseous changes. IMPRESSION: 1. No evidence of acute cardiopulmonary process. MACRO: None Signed by: Sancho Gross 11/10/2023 8:35 AM Dictation workstation: [id number] [facility] Comment on above: Order Comment: Repor t to [facility] registration on 11/09/2023 at 8:30 AM for chest x-ray and device check prior to appointment with Dr. Son at 10 AM Cardiac Device Check - Remot neeta 09-26-2023 [facility] Work Phone: Radiology Study observation (narrative) [facility] Work Phone: US.doppler Upper extremity v eilillian - tiff 08-10-2023 Exam negative for acute deep venous thrombosis in the left upper extremity MACRO: None Signed by: Simone Ramos 08/10/2023 3:07 PM Dictation workstation: [id number] [facility] Interpreted By: Simone Ramos, STUDY: [facility] US UPPER EXTREMITY VENOUS DUPLEX LEFT; 08/10/2023 2:47 pm INDICATION: Signs/Symptoms: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 COMPARISON: Portable chest 05 August 2023 ACCESSION NUMBER(S): [id number] ORDERING CLINICIAN: NAIMA WRIGHT TECHNIQUE: Vascular ultrasound [...] - 08/10/2023 Interpreted By: Simone Ramos, STUDY: [facility] US UPPER EXTREMITY VENOUS DUPLEX LEFT; 08/10/2023 2:47 pm INDICATION: Signs/Symptoms: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 COMPARISON: Portable chest 05 August 2023 ACCESSION NUMBER(S): [id number] ORDERING CLINICIAN: NAIMA WRIGHT TECHNIQUE: Vascular ultrasound [...] Simone Ramos 08/10/2023 3:07 PM Dictation workstation: [id number] [facility] Work Phone: Radiology Study observation (narrative) [facility] Work Phone: US.doppler Upper extremity v ein - leftOrdered By: Simone Ramos on 08-10-2023 [facility] Work Phone: VASC US UPPER EXTREMITY VENO US DUPLEX LEFTon 08-10-2023 VASC US UPPER EXTREMITY VENOUS DUPLEX LEFT Interpreted By: Simone Ramos, STUDY: VASC US UPPER EXTREMITY VENOUS DUPLEX LEFT; 08/10/2023 2:47 pm INDICATION: Signs/Symptoms: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 COMPARISON: Portable chest 05 August 2023 ACCESSION NUMBER(S): [id number] ORDERING CLINICIAN: NAIMA WRIGHT TECHNIQUE: Vascular ultrasound [...] Simone Ramos 08/10/2023 3:07 PM Dictation workstation: [id number] [facility] Basic metabolic 2000 panelon 08-05-2023 Anion gap [Moles/Vol] 12 mmol/L 10 - 2 0 mmol/L [facility] Calcium [Mass/Vol] 9.6 mg/dL 8.6 - 10. 3 mg/dL [facility] Chloride [Moles/Vol] 102 mmol/L 98 - 10 7 mmol/L [facility] CO2 [Moles/Vol] 29 mmol/L 21 - 32 mmol/L [facility] Creatinine [Mass/Vol] 1.12 mg/dL 0.50 - 1.30 mg/dL [facility] GFR/1.73 sq M.predicted among non-blacks MDRD (S/P/Bld) [Vol rate/Area] 76 mL/min/{1.73_m2} - PINF [facility] Comment on above: Calculations of yang mated GFR are performed using the 2020 CKD-EPI Study Refit equation without the race variable for the IDMS-Traceable creatinine methods. https://jasn.asnjournals.org/content//ASN.2020 618328 Glucose [Mass/Vol] 95 mg/dL 74 - 99 mg/dL [facility] Interpretation and review of laboratory results Normal [facility] Potassium [Moles/Vol] 4.0 mmol/L 3.5 - 5.3 mmol/L [facility] Sodium [Moles/Vol] 139 mmol/L 136 - 145 mmol/L [facility] Urea nitrogen [Mass/Vol] 17 mg/dL 6 - 23 mg/dL [facility] Anion gap [Moles/Vol] 12 mmol/L Normal 10-20 [facility] Comment on above: Performed By: #### 2 4321-2 #### JAIMEE QURESHI ([id number]) [facility] ([facility]) [address] [place] [address] Calcium [Mass/Vol] 9.6 mg/dL Normal 8.6-10.3 [facility] Comment on above: Performed By: #### 2 4321-2 #### JAIMEE QURESHI ([id number]) [facility] ([facility]) [address] [place] [address] Chloride [Moles/Vol] 102 mmol/L Normal 98-107 [facility] Comment on above: Performed By: #### 2 4321-2 #### JAIMEE QURESHI ([id number]) [facility] ([facility]) [address] [place] [address] 08389 CO2 [Moles/Vol] 29 mmol/L Normal 21-32 [facility] Comment on above: Performed By: #### 2 4321-2 #### JAIMEE QURESHI ([id number]) [facility] ([facility]) [address] [place] [address] 18308 Creatinine [Mass/Vol] 1.12 mg/dL Normal 0.50-1.30 [facility] Comment on above: Performed By: #### 2 4321-2 #### JAIMEE QURESHI ([id number]) [facility] ([facility]) [address] [place] [address] 62444 Glomerular filtration rate/1.73 sq M.predicted 76 mL/min/1.73m*2 Normal >[address] [facility] Comment on above: Result Comment: Calc ulations of estimated GFR are performed using the 2020 CKD-EPI Study Refit equation without the race variable for the IDMS-Traceable creatinine methods. https://jasn.asnjournals.org/content//ASN.2020 129791 Performed By: #### 2 4321-2 #### JAIMEE QURESHI ([id number]) [facility] ([facility]) [address] [place] [address] 50534 Glucose [Mass/Vol] 95 mg/dL Normal 74-99 [facility] Comment on above: Performed By: #### 2 4321-2 #### JAIMEE QURESHI ([id number]) [facility] ([facility]) [address] [place] [address] 77907 Potassium [Moles/Vol] 4.0 mmol/L Normal 3.5-5.3 [facility] Comment on above: Performed By: #### 2 4321-2 #### JAIMEE QURESHI ([id number]) [facility] ([facility]) [address] [place] [address] Sodium [Moles/Vol] 139 mmol/L Normal 136-145 [facility] Comment on above: Performed By: #### 2 4321-2 #### JAIMEE QURESHI ([id number]) [facility] ([facility]) [address] [place] [address] Urea nitrogen [Mass/Vol] 17 mg/dL Normal 6-[address] [facility] Comment on above: Performed By: #### 2 4321-2 #### JAIMEE QURESHI ([id number]) [facility] ([facility]) [address] [place] [address] 21781 CBC panel Auto (Bld)on 08-04 Erythrocyte distribution width (RBC) [Ratio] 13.0 % 11.5 - 14.5 % [facility] Hematocrit (Bld) [Volume fraction] 46.9 % 41.0 - 52.0 % [facility] Hemoglobin (Bld) [Mass/Vol] 16.1 g/dL 13.5 - 17.5 g/dL [facility] Interpretation and review of laboratory results Normal [facility] MCH (RBC) [Entitic mass] 31.5 pg 26.0 - 34.0 pg [facility] MCHC (RBC) [Mass/Vol] 34.3 g/dL 32.0 - 36.0 g/dL [facility] MCV (RBC) [Entitic vol] 92 fL 80 - 100 fL [facility] Nucleated RBC/100 WBC (Bld) [Ratio] 0.0 % [facility] Platelets (Bld) [#/Vol] 279 10*3/uL [facility] RBC (Bld) [#/Vol] 5.11 10*6/uL [facility] WBC (Bld) [#/Vol] 8.9 10*3/uL [facility] Erythrocyte distribution width (RBC) [Ratio] 13.0 % Normal 11.5-14.[address] [facility] Comment on above: Performed By: #### 5 8410-2 #### JAIMEE QURESHI ([id number]) [facility] ([facility]) [address] [place] [address] 85958 Hematocrit (Bld) [Volume fraction] 46.9 % Normal 41.0-52.[address] [facility] Comment on above: Performed By: #### 5 8410-2 #### JAIMEE QURESHI ([id number]) [facility] ([facility]) [address] [place] [address] 42477 Hemoglobin (Bld) [Mass/Vol] 16.1 g/dL Normal 13.5-17.[address] [facility] Comment on above: Performed By: #### 5 8410-2 #### JAIMEE QURESHI ([id number]) [facility] ([facility]) [address] [place] [address] 91183 MCH (RBC) [Entitic mass] 31.5 pg Normal 26.0-34.[address] [facility] Comment on above: Performed By: #### 5 8410-2 #### JAIMEE QURESHI ([id number]) [facility] ([facility]) [address] [place] [address] 64749 MCHC (RBC) [Mass/Vol] 34.3 g/dL Normal 32.0-36.0 [facility] Comment on above: Performed By: #### 5 8410-2 #### JAIMEE QURESHI ([id number]) [facility] ([facility]) [address] [place] [address] 16487 MCV (RBC) [Entitic vol] 92 fL Normal 80-100 U [facility] Comment on above: Performed By: #### 5 8410-2 #### JAIMEE QURESHI ([id number]) [facility] ([facility]) [address] [place] [address] 25409 Nucleated RBC/100 WBC (Bld) [Ratio] 0.0 /100 WBCs Normal 0.0-0.[address] [facility] Comment on above: Performed By: #### 5 8410-2 #### JAIMEE QURESHI ([id number]) [facility] ([facility]) [address] [place] [address] 21454 Platelets (Bld) [#/Vol] 279 x10*3/uL Normal 150-[address] [facility] Comment on above: Performed By: #### 5 8410-2 #### JAIMEE QURESHI ([id number]) [facility] ([facility]) [address] [place] [address] 76680 RBC (Bld) [#/Vol] 5.11 x10*6/uL Normal 4.50-5.90 [facility] Comment on above: Performed By: #### 5 8410-2 #### JAIMEE QURESHI ([id number]) [facility] ([facility]) [address] [place] [address] 48073 WBC (Bld) [#/Vol] 8.9 x10*3/uL Normal 4.4-11.3 [facility] Comment on above: Performed By: #### 5 8410-2 #### JAIMEE QURESHI (68110) [facility] ([facility]) [address] [place], [place] [address] Electrophysiology studyon [facility] Work Phone: PT and aPTT panel Coag (PPP) on 08-05-2023 aPTT Coag (PPP) [Time] [address] [facility] INR Coag (PPP) [Relative time] 1.0 {INR} 0.9 - 1.1 [facility] Interpretation and review of laboratory results Normal [facility] PT Coag (PPP) [Time] 11.0 s [facility] The APTT is no longer used for monitoring Unfractionated Heparin Therapy. For monitoring Heparin Therapy, use the Heparin Assay. [facility] aPTT Coag (PPP) [Time] 34 s Normal 27-38 [facility] Comment on above: Order Comment: The A PTT is no longer used for monitoring Unfractionated Heparin Therapy. For monitoring Heparin Therapy, use the Heparin Assay. Performed By: #### 3 4529-8 #### JAIMEE QURESHI ([id number]) [facility] (EM) [address] [place] [address] 96501 INR Coag (PPP) [Relative time] 1.0 Normal 0.9-1.[address] [facility] Comment on above: Order Comment: The A PTT is no longer used for monitoring Unfractionated Heparin Therapy. For monitoring Heparin Therapy, use the Heparin Assay. Performed By: #### 3 4529-8 #### JAIMEE QURESHI ([id number]) [facility] ([facility]) [address] [place] [address] 04072 PT Coag (PPP) [Time] 11.0 s Normal 9.8-12.8 [facility] Comment on above: Order Comment: The A PTT is no longer used for monitoring Unfractionated Heparin Therapy. For monitoring Heparin Therapy, use the Heparin Assay. Performed By: #### 3 4529-8 #### JAIMEE QURESHI ([id number]) [facility] ([facility]) [address] [place] [address] 14111 TRANSTHORACIC ECHO (TTE) COM PLETEon 08-05-2023 TRANSTHORACIC ECHO (TTE) [address] [address] TRANSTHORACIC ECHOCARDIOGRAM REPORT Patient Name: LILIANA MICHAELS Reading Physician: [id number] Batsheva Morris MD, [facility] Study Date: 08/05/2023 Ordering Provider: [id number] ANA M ANGEL MRN/PID: [id number] Fellow: Nurse: Date of /Age: 10 1965 Quality Assurance Group Leader: Eli Pisano RDCS Gender: M Additional Staff: Height: 162.56 cm Admit Date: Weight: 90.72 kg Admission Status: Outpatient BSA / BMI: 1.96 m2 / 34.33 Department Location: [place] [address] Echo Lab Blood Pressure: 128 /73 mmHg Study Type: TRANSTHORACIC ECHO (TTE) COMPLETE Diagnosis/ICD: Bradycardia, unspecified-R00.1 Indication: Abnormal EKG, Pre-EP CPT Codes: Echo Complete w Full Doppler-54005 Study Detail: The following Echo studies were [...] LA Area A2C: 18.9 cm2 LA Major [place] A4C: 5.8 cm LA [place] A2C: 5.5 cm LA Volume Index: 27.0 [...] 1.3 m/s (0.6-0.9m/s) PV Max P.6 mmHg [id number] Batsheva Morris MD, FACC Electronically signed on 08/05/2023 at 2:30:14 PM Final [facility] US Heart TransthoracicOrdere d By: Batsheva Morris on 08-05-2023 Aortic Valve Area by Continuity of Peak Velocity 2.42 cm2 [facility] Work Phone: Aortic Valve Area by Continuity of VTI 2.62 cm2 [facility] Work Phone: [phone] AV mn grad 4.0 mmHg [facility] Work Phone: [phone] AV pk grad 8.2 mmHg [facility] Work Phone: [phone] AV pk abiodun 1.43 m/s [facility] Work Phone: LA vol index A/L 29.3 ml/m2 [facility] Work Phone: [phone] LV A4C EF 62.4 [facility] Work Phone: [phone] LV biplane EF 60 % [facility] Work Phone: [phone] LVIDd 5.28 cm [facility] Work Phone: [phone] LVOT diam 2.00 cm [facility] Work Phone: [phone] MV avg E/e' ratio 7.78 [facility] Work Phone: [phone] MV E/A ratio 0.88 [facility] Work Phone: RV free wall pk S' 15.40 cm/s [facility] Work Phone: RVSP 23.4 mmHg [facility] Work Phone: Tricuspid annular plane systolic excursion 3.6 cm [facility] Work Phone: [facility] Work Phone: US Heart Transthoracicon [place] [address] TRANSTHORACIC ECHOCARDIOGRAM REPORT Patient Name: LILIANA MICHAELS Reading Physician: [id number] Batsheva Morris MD, [facility] Study Date: 08/05/2023 Ordering Provider: [id number] ANA M ANGEL MRN/PID: [id number] Fellow: Nurse: Date of /Age: 10 1965 / 58 Quality Assurance Group Leader: Eli Pisano RDCS Gender: M Additional Staff: Height: 162.56 cm Admit Date: Weight: 90.72 kg Admission Status: Outpatient BSA / BMI: 1.96 m2 / 34.33 Department Location: [place] [address] Echo Lab Blood Pressure: 128 /73 mmHg Study Type: TRANSTHORACIC ECHO (TTE) COMPLETE Diagnosis/ICD: Bradycardia, unspecified-R00.1 Indication: Abnormal EKG, Pre-EP CPT Codes: Echo Complete w Full Doppler-63005 Study Detail: The following Echo studies were [...] LA Area A2C: 18.9 cm2 LA [place] A4C: 5.8 cm LA [place] A2C: 5.5 cm LA Volume Index: 27.0 [...] not included)... Batsheva Alexander MD - 08/05/2023 [place] [address] TRANSTHORACIC ECHOCARDIOGRAM REPORT Patient Name: LILIANA MICHAELS Reading Physician: [id number] Batsheva Morris MD, [facility] Study Date: 08/05/2023 Ordering Provider: [id number] ANA M ANGEL MRN/PID: [id number] Fellow: Nurse: Date of /Age: 10 1965 Quality Assurance Group Leader: Eli Pisano RDCS Gender: M Additional Staff: Height: 162.56 cm Admit Date: Weight: 90.72 kg Admission Status: Outpatient BSA / BMI: 1.96 m2 / 34.33 Department Location: [place] [address] Echo Lab Blood Pressure: 128 /73 mmHg Study Type: TRANSTHORACIC ECHO (TTE) COMPLETE Diagnosis/ICD: Bradycardia, unspecified-R00.1 Indication: Abnormal EKG, Pre-EP CPT Codes: Echo Complete w Full Doppler-50730 Study Detail: The following Echo studies were [...] LA Area A2C: 18.9 cm2 LA [place] A4C: 5.8 cm LA [place] A2C: 5.5 cm LA Volume Index: 27.0 [...] 1.3 m/s (0.6-0.9m/s) PV Max P.6 mmHg [id number] Batsheva Morris MD, [facility] Electronically signed on 08/05/2023 at 2:30:14 PM Final [facility] Work Phone: XR CHEST 1 VIEWon 08-05-2023 XR CHEST 1 VIEW Interpreted By: Salvatore Clark, STUDY: XR CHEST 1 VIEW INDICATION: Signs/Symptoms:post implant. COMPARISON: None ACCESSION NUMBER(S): [id number] ORDERING CLINICIAN: ANA M KUMARI FINDINGS: No consolidation, effusion, edema, or pneumothorax. Pacemaker placed without pneumothorax. Position satisfactory. IMPRESSION: Status post pacemaker placement. Signed by: Salvatore Clark 08/05/2023 6:10 PM Dictation workstation: [id number] [facility] Comment on above: Order Comment: Vahe heard. XR Chest Single viewon 08-04 Status post pacemaker placement. Signed by: Salvatore Clark 08/05/2023 6:10 PM Dictation workstation: [id number] [facility] Interpreted By: Salvatore Clark, STUDY: XR CHEST 1 VIEW INDICATION: Signs/Symptoms:post implant. COMPARISON: None ACCESSION NUMBER(S): [id number] ORDERING CLINICIAN: ANA M KUMARI FINDINGS: No consolidation, effusion, edema, or pneumothorax. Pacemaker placed without pneumothorax. Position satisfactory. [facility] Salvatore Clark MD - 08/05/2023 Interpreted By: Salvatore Clark, STUDY: XR CHEST 1 VIEW INDICATION: Signs/Symptoms:post implant. COMPARISON: None ACCESSION NUMBER(S): [id number] ORDERING CLINICIAN: ANA M KUMARI FINDINGS: No consolidation, effusion, edema, or pneumothorax. Pacemaker placed without pneumothorax. Position satisfactory. IMPRESSION: Status post pacemaker placement. Signed by: Salvatore Clark 08/05/2023 6:10 PM Dictation workstation: [id number] [facility] Work Phone: Radiology Study observation (narrative) [facility] Work Phone: XR Chest Single viewOrdered By: Salvatore Clark on 08-05-2023 [facility] Work Phone: ECG 12 lead (Clinic Performe d)on 07-22-2023 EKG shows marked sinus bradycardia rate of 41 bpm QRS ration 100 ms QT corrected he had a 91 ms. Rhythm strip shows the same pattern. [facility] Work Phone: CT LUNG CANCER SCREENINGon [...] by: BATSHEVA ALVARADO Date: 2022-07-15 12:10 Normal [facility] Office Visit (Cardiology)on 07-14-2022 Follow-up visit [...] we can help. You may also call [phone] for free resources and assistance.; Status:Complete - [...] ischemic evaluation. He underwent cardiac catheterization in [place] which showed no significant obstructive disease 3. [...] BY MOUTH FOUR TIMES A DAY NEEDED Xuyjdc4g at bedtime Singulair 10 MG Oral TabletTAKE [...] negative for complaint. Vitals Vital Signs Recorded: [id number] 10:57AM Heart Rate34, L Radial Kfgduipu493, LUE, Sitting Bzpgkuoam96, LUE, Sitting Height5 ft 4 in Fxgjsm284 lb BMI Aseduwrbfm35.96 kg/m2 BSA Calculated1.92 Tobacco Usea) Yes Patient encouraged to st (more content not included)... Normal [facility] Tobacco Screening.on 023 Adult depression screening assessment No [facility] [employer] DO Work Phone: Fall risk assessment a) No falls within the last year [facility] [employer] DO Work Phone: Tobacco use status CPHS a) Yes [facility] [employer] DO Work Phone: Tobacco Screening. Yes [facility] Nut[employer] DO Work Phone: CT ABD/PELV W CONon [...] FLEX JACOBS Date: 2022-06-11 10:06 Normal [facility] CBC AUTO DIFFon 05-07-2022 BASO # 0.1 103/ul Normal 0.0-0.1 [facility] Comment on above: Performed By: #### C BC #### [facility] [address] [place] [address] Dr. Britt Mendoza Basophils/100 WBC (Bld) 1.6 % Normal 0.2-2.0 [facility] Comment on above: Performed By: #### C BC #### [facility] [address] [place] [address] Dr. Britt Mendoza EO # 0.2 103/ul Normal 0.0-0.7 [facility] Comment on above: Performed By: #### C BC #### [facility] [address] [place] [address] Dr. Britt Mendoza Eosinophils/100 WBC (Bld) 3.0 % Normal 0.9-7.0 [facility] Comment on above: Performed By: #### C BC #### [facility] [address] [place] [address] Dr. Britt Mendoza Erythrocyte distribution width (RBC) [Ratio] 12.4 % Normal 11.0-15.0 [facility] Comment on above: Performed By: #### C BC #### [facility] [address] [place] [address] Dr. Britt Mendoza Hematocrit (Bld) [Volume fraction] 43.2 % Normal 42.0-54.0 [facility] Comment on above: Performed By: #### C BC #### [facility] [address] [place] [address] Dr. Britt Mendoza Hemoglobin (Bld) [Mass/Vol] 14.7 g/dL Normal 14.0-18.0 [facility] Comment on above: Performed By: #### C BC #### [facility] [address] [place] [address] Dr. Britt Mendoza IG # 0.11 10e3/ul Critically high 0.00-0.03 [facility] Comment on above: Performed By: #### C BC #### [facility] [address] [place] [address] Dr. Britt Mendoza IG % 1.4 % Critically high 0.0-0.5 [facility] Comment on above: Performed By: #### C BC #### [facility] [address] [place] [address] Dr. Britt Mendoza LYMPH # 1.7 103/ul Normal 1.2-3.8 [facility] Comment on above: Performed By: #### C BC #### [facility] [address] [place] [address] Dr. Britt Mendoza Lymphocytes/100 WBC (Bld) 21.6 % Normal 20.5-60.0 [facility] Comment on above: Performed By: #### C BC #### [facility] [address] [place] [address] Dr. Britt Mendoza MANUAL DIFF REQ NO Normal [facility] Comment on above: Performed By: #### C BC #### [facility] [address] [place] [address] Dr. Britt Mendoza MCH (RBC) [Entitic mass] 31.2 pg Normal 25.9-34.0 [facility] Comment on above: Performed By: #### C BC #### [facility] [address] [place] [address] Dr. Britt Mendoza MCHC (RBC) [Mass/Vol] 34.0 g/dL Normal 29.9-35.2 [facility] Comment on above: Performed By: #### C BC #### [facility] [address] [place] [address] Dr. Britt Mendoza MCV (RBC) [Entitic vol] 91.7 fL Normal 80.0-94.0 [facility] Comment on above: Performed By: #### C BC #### [facility] [address] [place] [address] Dr. Britt Mendoza MONO # 0.5 103/ul Normal 0.3-0.8 [facility] Comment on above: Performed By: #### C BC #### [facility] [address] [place] [address] Dr. Britt Mendoza Monocytes/100 WBC (Bld) 6.8 % Normal 1.7-12.0 [facility] Comment on above: Performed By: #### C BC #### [facility] [address] [place] [address] Dr. Britt Mendoza NEUT # 5.0 103/ul Normal 1.4-6.5 [facility] Comment on above: Performed By: #### C BC #### [facility] [address] [place] [address] Dr. Britt Mendoza Neutrophils/100 WBC (Bld) 65.6 % Normal 43.0-75.0 [facility] Comment on above: Performed By: #### C BC #### [facility] [address] [place] [address] Dr. Britt Mendoza Platelet mean volume (Bld) [Entitic vol] 9.7 fL Normal 9.5-13.5 [facility] Comment on above: Performed By: #### C BC #### [facility] [address] [place] [address] Dr. Britt Mendoza PLT 244 103/ul Normal 150-450 [facility] Comment on above: Performed By: #### C BC #### [facility] [address] [place] [address] Dr. Britt Mendoza RBC 4.71 106/ul Normal 4.70-6.10 [facility] Comment on above: Performed By: #### C BC #### [facility] [address] [place] [address] Dr. Britt Mendoza WBC 7.6 103/ul Normal 4.0-11.0 [facility] Comment on above: Performed By: #### C BC #### [facility] [address] [place], [place] [address] Dr. Britt Mendoza GLYCOHEMOGLOBIN A1Con 2021 ADA RECOMMENDATION SEE BELOW Normal [facility] Comment on above: Result Comment: ADA RECOMMENDED LIMIT 4.0 - 6.0 ADA THERAPEUTIC TARGET < 7.0 ACTION SUGGESTED > 7.0 Performed By: #### A 1C ####[facility] [address] [place] [address]Dr. Britt Mendoza Glucose [Mass/Vol] 117 mg/dL Normal [facility] Comment on above: Performed By: #### A 1C ####[facility] [address] [place] [address]Dr. Britt Mendoza HbA1c (Bld) [Mass fraction] 5.7 % Normal 4.5-6.2 [facility] Comment on above: Performed By: #### A 1C ####[facility] [address] [place] [address]Dr. Britt Mendoza LIPID PROFILEon 05-07-2022 CHOL-HDL RATIO NORM SEE BELOW Normal [facility] Comment on above: Result Comment: 3.3 - 4.4 LOW RISK 4.4 - 7.1 AVERAGE RISK 7.1 - 11.0 MODERATE RISK >11.0 HIGH RISK Performed By: #### B MP, LIVER, LIPID, TSH ####[facility] [address] [place] [id number]. Britt Mendoza Cholesterol [Mass/Vol] 235 mg/dL Critically high <=200 [facility] Comment on above: Performed By: #### B MP, LIVER, LIPID, TSH ####[facility] [address] [place] [id number]. Britt Mendoza Cholesterol in HDL [Mass/Vol] 40 mg/dL Normal 40-60 [facility] Comment on above: Performed By: #### B MP, LIVER, LIPID, TSH ####[facility] [address] [place] [address]Dr. Britt Mendoza Cholesterol in LDL [Mass/Vol] 156.8 mg/dL Normal [facility] Comment on above: Performed By: #### B MP, LIVER, LIPID, TSH ####[facility] [address] [place] [id number]. Britt Mendoza Cholesterol.total/Viola sterol in HDL [Mass ratio] 5.9 {ratio} Normal [facility] Comment on above: Performed By: #### B MP, LIVER, LIPID, TSH ####[facility] [address] [place] [id number]. Britt Mendoza HDL NORMAL > or = 60 mg/dl - LOW CARDIOVASCULAR RISK <40 mg/dl - HIGH CARDIOVASCULAR RISK Normal [facility] Comment on above: Performed By: #### B MP, LIVER, LIPID, TSH ####[facility] [address] [place] [address]Dr. Britt Mendoza LDL CALC NORMAL SEE BELOW Normal [facility] Comment on above: Result Comment: <100 mg/dl OPTIMAL 100 - 129 mg/dl NEAR OR ABOVE OPTIMAL 130 - 159 mg/dl BORDERLINE HIGH 160 - 189 mg/dl HIGH >190 mg/dl VERY HIGH Performed By: #### B MP, LIVER, LIPID, TSH ####[facility] [address] [place] [address]Dr. Britt Mendoza Triglyceride [Mass/Vol] 191 mg/dL Critically high <=150 [facility] Comment on above: Performed By: #### B MP, LIVER, LIPID, TSH ####[facility] [address] [place] [address]Dr. Britt Mendoza VLDL CALC 38.2 mg/dL Normal [facility] Comment on above: Performed By: #### B MP, LIVER, LIPID, TSH ####[facility] [address] [place] [id number]. Britt Mendoza LIVER PROFILEon 05-07-2022 Albumin [Mass/Vol] 3.6 g/dL Normal 3.4-5.0 [facility] Comment on above: Performed By: #### B MP, LIVER, LIPID, TSH ####[facility] [address] [place] [id number]. Britt Mendoza Albumin/Globulin [Mass ratio] 1.1 {ratio} Normal [facility] Comment on above: Performed By: #### B MP, LIVER, LIPID, TSH ####[facility] [address] [place] [address]Dr. Britt Mendoza ALP [Catalytic activity/Vol] 84 U/L Normal 46-116 [facility] Comment on above: Performed By: #### B MP, LIVER, LIPID, TSH ####[facility] [address] [place] [address]Dr. Britt Mendoza ALT [Catalytic activity/Vol] 34 U/L Normal 16-63 [facility] Comment on above: Performed By: #### B MP, LIVER, LIPID, TSH ####[facility] [address] [place] [address]Dr. Anjalidaniel Reji AST [Catalytic activity/Vol] 21 U/L Normal 15-37 [facility] Comment on above: Performed By: #### B MP, LIVER, LIPID, TSH ####[facility] [address] [place], [place] [address]Dr. Britt Mendoza BILI, CONJUGATED 0.1 mg/dL Normal 0.0-0.2 [facility] Comment on above: Performed By: #### B MP, LIVER, LIPID, TSH ####[facility] [address] [place], [place] [address]Dr. Britt Mendoza Bilirubin [Mass/Vol] 0.4 mg/dL Normal 0.2-1.0 [facility] Comment on above: Performed By: #### B MP, LIVER, LIPID, TSH ####[facility] [address] [place] [address]Dr. Anjalidaniel Reji Globulin (S) [Mass/Vol] 3.4 g/dL Normal [facility] Comment on above: Performed By: #### B MP, LIVER, LIPID, TSH ####[facility] [address] [place] [address]Dr. Britt Mendoza Protein [Mass/Vol] 7.0 g/dL Normal 6.4-8.2 [facility] Comment on above: Performed By: #### B MP, LIVER, LIPID, TSH ####[facility] [address] [place] [address]Dr. Britt Mendoza PROF CHEM 8 (BAS METB)on Anion gap [Moles/Vol] 13.8 mmol/L Normal [facility] Comment on above: Result Comment: Prev iously reported as: -2.3 On 05/07/2022 13:50 By DM9 Performed By: #### B MP, LIVER, LIPID, TSH #### [facility] [address] [place] [address] [address] Britt eMndoza Calcium [Mass/Vol] 9.2 mg/dL Normal 8.5-10.1 [facility] Comment on above: Performed By: #### B MP, LIVER, LIPID, TSH #### [facility] [address] [place] [address] [address] Britt Mendoza Chloride [Moles/Vol] 99 mmol/L Normal 98-107 [facility] Comment on above: Result Comment: Prev iously reported as: 106 On 05/07/2022 13:50 By DM9 Performed By: #### B MP, LIVER, LIPID, TSH #### [facility] [address] [place] [address] Dr. Britt Mendoza CO2 [Moles/Vol] 27.3 mmol/L Normal 21.0-32.0 [facility] Comment on above: Result Comment: Prev iously reported as: 29.2 On 05/07/2022 13:50 By DM9 Performed By: #### B MP, LIVER, LIPID, TSH #### [facility] [address] [place] [address] [address] Britt Mendoza Creatinine [Mass/Vol] 1.12 mg/dL Normal 0.70-1.30 [facility] Comment on above: Performed By: #### B MP, LIVER, LIPID, TSH #### [facility] [address] [place] [address] [address] Britt Mendoza EGFR-AF SPANISH >60 Normal >=60 [facility] Comment on above: Performed By: #### B MP, LIVER, LIPID, TSH #### [facility] [address] [place] [address] [address] Britt Mendoza EGFR-NON AF SPANISH >60 Normal >=60 [facility] Comment on above: Performed By: #### B MP, LIVER, LIPID, TSH #### [facility] [address] [place] [address] [address] Britt Mendoza Glucose [Mass/Vol] 108 mg/dL Critically high 74-106 [facility] Comment on above: Performed By: #### B MP, LIVER, LIPID, TSH #### [facility] [address] [place] [address] Dr. Britt Mendoza Potassium [Moles/Vol] 4.1 mmol/L Normal 3.5-5.1 [facility] Comment on above: Result Comment: Prev iously reported as: 3.9 On 05/07/2022 13:50 By DM9 Performed By: #### B MP, LIVER, LIPID, TSH #### [facility] [address] [place] [address] Dr. Britt Mendoza Sodium [Moles/Vol] 136 mmol/L Normal 136-145 [facility] Comment on above: Result Comment: Prev iously reported as: 129 On 05/07/2022 13:50 By DM9 Performed By: #### B MP, LIVER, LIPID, TSH #### [facility] [address] [place] [address] Dr. Britt Mendoza Urea nitrogen [Mass/Vol] 26.0 mg/dL Critically high 7.0-18.0 [facility] Comment on above: Performed By: #### B MP, LIVER, LIPID, TSH #### [facility] [address] [place] [address] Dr. Britt Mendoza Urea nitrogen/Creatinine [Mass ratio] 23.2 mg/mg Normal [facility] Comment on above: Performed By: #### B MP, LIVER, LIPID, TSH #### [facility] [address] [place] [address] Dr. Britt Mendoza TSHon 05-07-2022 TSH 0.828 uIU/mL Normal 0.358-3.740 [facility] Comment on above: Performed By: #### B MP, LIVER, LIPID, TSH ####[facility] [address] [place], [place] [address]ZgAtiya Mendoza VITAMIN D 25 OHon 05-07-2022 VIT D 25-OH 45.6 ng/mL Normal [facility] Comment on above: Performed By: #### V ITAD, PSASC #### [facility] [address] [place], [place] [address] Dr. Britt Mendoza VIT D RANGES SEE BELOW Normal [facility] Comment on above: Result Comment: <20 ng/mL Vit D deficient 20 - <30 ng/mL Vit D insufficient 30 - 100 ng/mL Vit D sufficient >100 ng/mL Potential Toxicity Performed By: #### V ITTRISH, PSASC #### [facility] [address] [place], [place] [address] Dr. Britt Mendoza Covid-19 PCR (CVDTB)on SARS-CoV-2 (COVID-19) RNA KATT+probe Ql (Unsp spec) Detected Critically abnormal NOT DETECTED [facility] Comment on above: Result Comment: This test is not yet approved or cleared by the [place] FDA. When there are no FDA-approved or cleared tests available, and other criteria are met, FDA can make tests available under an emergency access mechanism called an Emergency Use Authorization (EUA). The EUA for this test is supported by the [place] of Health and Human Service's declaration that [...] be used). Performed By: #### C VDTBH ####[facility] [address] [place], [place] [address]IvDr. Britt Mendoza Cardiac Stress Teston 2021 Cardiac Stress Test [address], [address], [place] [address] Exercise Stress Test Patient Name: LILIANA MICHAELS JR. Ordering Physician: Melanie Ty MD Study Date: 02/15/2022 Reading Physician: [id number] Valentino Ty MD MRN/PID: [id number] Supervising Physician: [id number] Yovani Rivera MD Accession/Order#: [id number] Referring Physician: VALENTINO TY Date of : 1965 PCP: Ishmael Simon Gender: M Fellow: Height: 162.56 cm Nurse: Yunior Bhatti RN Weight: 81.65 kg Quality Assurance Group Leader: SAEID BSA: 1.87 m2 Technologist: BMI: 30.90 kg/m2 Additional Staff: Age: 56 years cc report to: Patient Location: cc report to: [id number] Valentino Ty MD Study Type: Cardiac Stress Test Diagnosis/ICD: R94.31-Abnormal electrocardiogram [ECG] [EKG]; R00.1-Bradycardia, unspecified; R06.00-Dyspnea, unspecified Indication: Dyspnea Procedure/CPT: Stress Test Interpretation-[id number] ; Stress Test Supervision-[id number] Falls Risk: Low: Patient has low risk [...] 7. An element of chronotropic incompetency noted. [id number] Valentino Ty MD Electronically signed on 02/16/2022 at 2:52:20 PM Final Normal [facility] Cardiac Stress Test Please click on the link to view the study images [facility] Work Phone: Cardiac Stress Test MP-No rth [facility] DO Work Phone: Office [...] we can help. You may also call [phone] for free resources and assistance.; Status:Complete - [...] This led to a cardiac evaluation in [place] and its not clear to me whether [...] Oral Capsule Delayed ReleaseTAKE 1 CAPSULE Daily Vruqpn0t at bedtime Sin (more content not included)... Normal [employer] Tobacco Screening.on 022 Adult depression screening assessment No [facility] [employer] 600 DO Work Phone: Fall risk assessment a) No falls within the last year [facility] [employer] 600 DO Work Phone: Tobacco use status CPHS a) Yes [facility] [employer] 600 DO Work Phone: Tobacco Screening. Yes [facility] [employer] 600 DO Work Phone: [facility]19 [facility]on SARS-CoV-2 (COVID-19) RNA KATT+probe Ql (Unsp spec) Not detected Normal NOT DETECTED [facility] Comment on above: Result Comment: This test is not yet approved or cleared by the [place] FDA. When there are no FDA-approved or cleared tests available, and other criteria are met, FDA can make tests available under an emergency access mechanism called an Emergency Use Authorization (EUA). The EUA for this test is supported by the [place] of Health and Human Service's (HHS's) declaration [...] SARS-CoV-2. Performed By: #### C VDTB #### [facility] [address] [place], [place] [address] Dr. Britt Mendoza Covid-19 PCR ([facility])on 11-07 SARS-CoV-2 (COVID-19) RNA KATT+probe Ql (Unsp spec) Not detected Normal NOT DETECTED [facility] Comment on above: Result Comment: This test is not yet approved or cleared by the [place] FDA. When there are no FDA-approved or cleared tests available, and other criteria are met, FDA can make tests available under an emergency access mechanism called an Emergency Use Authorization (EUA). The EUA for this test is supported by the [employer] of Health and Human Service's (HHS's) declaration [...] SARS-CoV-2. Performed By: #### C [facility] ####[facility] [address] [place], [place] [address]JrDr. Britt Mendoza XR CHEST 2 Von 10-01-2021 [...] by: FLEX JACOBS Date: 2021-10-01 09:30 Normal [facility] Ambulatory Clinical Summaryo n 03-05-2021 Ambulatory Clinical Summary {[id number]}CD:[id number] Normal [facility] Historical Records Officeon 03-05-2021 Historical Records Office [id number] #[id number]:127 Normal [facility] Patient Educationon 03-05-20 Patient Education [...] these instructions at home: Medicines ? Take fdxl-her-ingyfaj and prescription medicines only as told by [...] of your (more content not included)... Normal [facility] Urology Office/Clinic Noteon 03-05-2021 Urology [...] order. Ordered: Office Visit Level 4 Est 23185 2. Hypogonadism male (E29.1: Testicular hypofunction) noted [...] time. Ordered: Office Visit Level 4 Est 15676 3. BPH with urinary obstruction (N40.1: Benign prostatic hyperplasia with lower urinary tract symptoms) s/p Urolift September 2018. Pt is currently taking no bladder/prostate medication and is mostly satisfied with overall symptom control. has nocturia but attributes this to diuretics. Pt prefers to continue with no changes at this time. PCP checking PSAs per pt. Ordered: Office Visit Level 4 Est 81912 Orders: Urnls Dip Stick Auto w/o Microscopy POC 88455 offered f/u 1 yr but pt prefers PRN. 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 Follow-up With When Contact Information ITA SLOAN, SIMONE Priest [address] [place] [address]- Additional Instructions: Patient Education Erectile Dysfunction Problem [...] inhalation powde (more content not included)... Normal [facility] Comment on above: Result Comment: Elec tronically Signed By: DANIEL MARTINEZ, TOMEKA Priest\.aracelis\Date and Time Signed: 03/05/21 12:24 EDT MRI PELVIS WO CONTRASTon MRI PELVIS WO CONTRAST [facility] Department of Radiology [address] [place] [address] Patient Name: LILIANA MICHAELS : 1965 Sex: M Age: Race: White Pt. Location: 18 Patient Status: Ordered Date: 09/10/2020 3:35:00 PM Completed Date: 10/03/2020 08:34 AM Requesting Provider: SIMONE RUIZ Attending Provider: Report Copy To: Signs & Symptoms: R10.2 Pelvic and perineal pain I10 History: [place], Right FOREIGN per clinic will fax SS kaltag auth# [id number] 09/16/20-10/17/20 cpt code 60474 *mla Comments: Right groin to r/o an [...] spine. Electronically signed: Dinh Miller. Transcribed by: [email or web address], User Resident: Electronically Signed by: DINH MILLER @ 10/03/2020 09:57 AM Normal [facility] Comment on above: Order Comment: Right groin to r/o an adductor tear; iliopsoas bursitis or injury Operative Reporton Operative Report MR#: [id number] [facility] Pt. Name: Liliana Michaels Room [...] Ruiz MD Date Trans: 09/10/2020 11:40 P/rinao [id number] cc: Ishmael Simon M.D. [address] [facility] [facility] [address] [place] [facility] Coding Summary.on 09-01-2020 Coding Summary. CD:[id number] Gh0bWw+PGhlYWQ+PE1FV AGaQ40oqPTpoS6RO3uHW H1GZYICXIQZFA2VZW7kt DZ4EFnjL0IkfmHp YxiecBReZQ94NFo9SAK0 nYwtRTpvrC4rsVXfK4v9 MmMwOQ11hA81ZDdaZWVp PpT4LrEdueddoVDz U2gcItVhsUXeDqt+PHRh YmxlIHdpZHRoPScxMDAl ZvKftWhsIQ7pMy2dQDGs LWNvbGxhcHNlOiBj h3rkZAHjPEafIK6jxYpc K0GklJI9QNAde3a4Pm17 dHI+FDHxJLY5fPrjCSen h371RhWkv9caAHI2 pGRpOBtcAGZ3O07bw9D3 NZSeVPGeHSW1gKO5oX2a bIhtrotpL1NqjKPnKvC1 MEP5kSGieQ7jhFha qrncjK2tBgi+W28OJA3M IAYQGR8HInj9Z2KqPghq dHI+TS43GMTxTC98kTWb uSStn9ytjKh6BkJm ULOyEBY3gExqPKwpy2Aa KHQyN83ueINtv4M2VFNr kPmncAWiMuVajCV5sN1z EWlijhnov7cicjrd Uhoim1iurj77gG08P97x ENduFIAsSMK6NXXtWSQv fDcrej9jiW1vYw0+IDxj j7xhl5hivLz6RhEn YOCfxqFnpGptKAP1m2Lu Lu44L2HlgTxwi8EtOaw0 dg15gZKpl0H0bQE9AFct COGqqM7qOVlyExG1 DDLlDfUapO22lNUiYXyx Cp7okIcdrQlrAL7uKYVx hzarRMCftP9eWTYiyXIb zItiJX0tGBErjujg f706CnIaIUE2WATzwGMp A6AgnU6ePfSkHFMjGJBb L4DgoAJhAJdcI833MBjo GzE3KLKxttIiM2Ww QBGfrYowYaG6j5Q9Fu8Z k1DkxvbvITO1HDbgRSN9 TqK0CsHxEpW2X5SgDok0 NCMlxNknVL1dM4Yj LBGfzmplbizdfKB4BJYh TGYbuO15jLYaITsvZv7n k6J1i288ZVHzMKGirR25 Az5kjVqgGJNxaWDC jI7rroasb3tcyqtaLfXw UMXuUGz4DMr2GSYovPna SgZiXTJ5SuS4KXO3tPAz qR3kkOzxkqnyvR8g Oyc+X70kpH0yZJL7EJZ1 fgcdNFTtaeRaEC35AU00 O9CgAubbwXAoyMJ+PGRp adUtePndIE7zFrUt w7jxe5ErAJaaA0VtJDWq UNieRrw3OMVpXIR2mJQ9 hS9pXKSxTQpwh3U8eRX9 W7BffmVcks0df0uv HJUvDZraR64fbNJrm8T0 FBLojRK9ZCExyOgwQhKb eT33Yen+WSJfnFnfd8Jf Ijeuf4ubt2oucPt5 IjMwJSIgdmFsaWduPSJ0 a0TmVo97E44zYAtiASSq QEDoYJAdTFIqzWmsmj2g cV7lOa4+PGNvbCB3 zGB3kY1hKWJqMiT1EDep I379XuYjcRXvHicle4hk x8gdaSs7YhDvFHHfpfEg hAagDOD4f9WdFq50 W79fKCouSPKwTWTmWUAe LMLfzBfleo7yaC0wDw6+ RR3dq9zndf66mQ36zHK+ TKGfVZU9cKfwTFyt DWWpxD6cEDnlBjN8GPEo AqNlpM92hITgASvcVp2h jKxriKfcTI3hLCDahvnm m177JoFug0qzIXNa eZIdWQqwMOI2C98jz7X1 QAQeUIFhSQS5mYN6bD9t bGlnbjogbGVmdDsgdmVy uTdvTMymRSraZ065 IHRvcDsnPlBhdGllbnQg DkDhVFe4T9MaHdf8TOJy hKsyRT6jpABoEAxeHt9h kMbxdAvpSN3pXBDw qkrmz347McFhy8rfOSTf dMPwKViwKVC2M06qj3O7 ITKyGUXlGJB1fOM0tC1z bGlnbjogbGVmdDsg hqXgkHdjXEszFRpeX112 IHRvcDsnPkJpcnRoIERh iMM5IE01HK50tQTho7B9 vXZ1S6VlUEWdkjjq heofnQN1CSGgOKBodB51 Zw4zbVdnVc3uWXGqRXX6 BEFxxQUcZ8ToxC2vIcIn GOPkQYLqJ0TtjUWl GLicP024WOklBzC9SVJe pnOuG5RxOTMaiTnvKgI5 z9W5Cr4GU7F4KJ72MY44 wSTqa2M4uNT2T6Qv TNOjlqvkhmtrbWC2WUSr JMHhbV28He2osMmfFv7r HSFeGCV8NGSgsHQrR1Dw gA0zNlUpLGVePUSz A8YesVEdPVkjP300HUdz LxO6NWMvkvUkM4JxNMXu dFpfKcY8g8I0Ck0FMHm7 FF29HQ41yKEtp4U9 mMI9B8DaVFIydkeunpnc eGD9DLCtKQUwrH62Vq2g mOufCx9tDCMqYJX6TKNb gFMeV6JrkW3tBbBp FLHrTVPeX4TnyQOyIAlz V972RDkbUoN4JPGqxuIh E5HiDZGwrHimBsP1h6H2 Yo8FRGArMZ79BBY7 mIA8WC08DR71F1YfVrdj dGFibGU+PHRhYmxlIHdp ZHRoPScxMDAlJyBzdHls JY8bDb1tPYJrCAQc aPgdjSEfWjXdo0zoHBJl PQrgUI8teVhtV7VypAC6 YBLhg4c3Fd64T26oS5Bx dXA+KKRqdSY2uFK6 pR1zUlAsDbO2WSueB146 GhXowDIaFsijt3whg0ml oZk2HnO1PBYkqgGutKif FXG6q9HuOt00P82h IHdpZHRoPSIxNSUiIHZh dOvvyf4tsD1sXu8+PGNv wAJ4qNK7fY5fFuNjOiN1 MFtrJ601OkVnsIWq Upoki1jmb7yquFr6VxXv NKQoovNeuRwfTYI2n1Ib Ao16C0SufHahn7YgXjn3 fh60oPRtf5P3sPU6 S8UmSXFewsunaHJouAts SD9lDNQqxrhxYOEudW9h BCSaK3f2OqSrIgR4FYcx P0QgshS6IYEebXSo BTnfTML9B95dj7O4RWDc QEQiGEH9jCW4qN3qwWuf bjogbGVmdDsgdmVydGlj QJssQLjuA118ZDAt yTkjEBViyZ8eHFJxyRHn tYauFW2vAYStmtuuZybV AW9FBxalQoQFVTjnUPfw dGQ+DAVkRJH9hEhf NLioTGGupS9gQWTpH7x7 HeBgCzF7YCysY0XfUOLc whvoBn21sO1cHeGsSzM0 LHeiH7XuvjF1TMNw sYJeGIxwASV8W30cj5C5 REKyCSKyDRV7nHG0eQ1a bGlnbjogbGVmdDsgdmVy hNkgBTxmYYryT982 IOYatMckDwFjAuS5LjK9 PeG1J6CmDlk5GIHmnMlt XB2mkSHyVHqmCz5raHkz fQgyZD5sFXXdohvt DRIxbJ2bNAIapMItoByz CH6qROAjjvtvz628BsNv RAA4OPNjkYXyK4TplL7i PfVaDZUtBPOiO1So dZQtSOpnZ107EWxvBbX5 OGDirrRbA6FoMTDclOxy GxT9u8F3Az37IyDUCDVy czwvdGQ+PHRkIHN0 fRuiDTxiNEXowF8jUUBv S3s0ZlHlKdG6AHtpS2Ka MTNieufbWl66fW8pAoVg GjI6MFhyN4SqaoD0 JTVesPVsOOojJYD4P12a x6I6JUUgXLNiJZS5rGK0 zR2gqOjuhgektOEioHhk dmVydGljYWwtYWxp U187LWWtpSndDt6arAT1 A0RpRnc5PYIoyWheKJ7e gKLqLTzzRp0bqTipqGug DZ3xDYPnemrpXCHf oH5tMLGalJBfsCqiCV4o WJVmrtbbb549VmGoIVN3 DIKdvUAxP8SblC5zUwUe NQLkAMRvS9MwkPFh LHlkZ044XWopLwQ1DNSw rgZaM5XoJZYafCmqErQ1 j2T4Dp1EvWSyP9XgZ6i4 Z4BoVninuMQ+PC90 LKHpDO61rDYefGPbr6ti qXg0YzCpQVKtINX8pRwf BXnel2CkTRIdI76dfYKo u9R6TJOilMuksAHn DuUakAH9iM9tDPxdspxw m8uqfcilKxhde9vafo37 lL70D34wIKtxGAXcIFLq BLUkIUWajOaujw1h rL0iQt3+ITGnsJI8bJT2 uS8nHjDpTyH4JQcoZ683 SlLmtFMmFuwew0yzk9xf hCn5MlXlCIAuzuXc jWjnVOJ7m0AbFo10Y68l IHdpZHRoPSIyMCUiIHZh wSdhcc0qkM9tHf8+PC9j f9kuag98vM35zVJ+ OUCmEMP3bNruDPimTSXl nV0cLTrrMtK8SRBhNqFt dC93oVYtZCbpHo2vrKzn eSycRO2dYIZawphp u085CfGuu1gxJOQytUAu TIjaWNK8H63gz3J5UDRo GZItMOT5rLP0dM3wuLnk bjogbGVmdDsgdmVy qBczBLlmFIscS230EGJv tJqkYmEsxUHsS3yrohIC RC3vIxaegQV+PHRkIHN0 tXirEOrbPQBohT7p AHBmI4k7WgYaCgT7PNqp Q9WrggV7FQFpiZGzPQEz jMPTyD3cbasnm4yjkqqg NkFuXIYyYYu0GSb1 LKCdcAodLgOgAXY6BvH9 MWK8sTEtgU4wjBhhxfwy dV5eJsl+RklOOjwvdGQ+ HDFxPJR8tRvuLUfl OPGdgO9gBKMyP3k3GbVi BsT0MQrnI4HvxiR2DXVu vTRwQETtjVZVaJ7stsme y2kygoaxJlVnUECa PKf9PLk3ELUohZabZqAy GMN5SoJ5RVH1rTBsnV8s aFlslubcuX1rQxo+TVJO OjwvdGQ+PHRkIHN0 mDjvHYqtLIPesI3eEVVh R2d3XjXjByJ7WAiuL6Sh prY4IJLxsPEeVWGjtSEU rM4wwnsgh5dcryhn IjBuSVMjLZr7KSo7GYDm bJasMsXdQGU7GfK4JAJ5 yRGblZ1rbEkphlhjfX2u Oyc+VMW3DUT3JN84 PY94V7OgUmuszPQltBX+ PHRhYmxlIHdpZHRoPScx PBZrUpSwdLmqYW9wQb6r ZGVyLWNvbGxhcHNl OiBj (more content not included)... Normal [facility] Auto Diffon 08-24-2020 Basophils/100 WBC (Bld) 1.0 % Normal 0.0-2.0 F [facility] Comment on above: Order Comment: Order Added by Discern Expert. Performed By: #### 1 7223738, 5974592, 4617814, 86800073, 7503148, 1579437, 93599128, 64957268 ####[address] [place] [address] Basophils/Leukocytes Auto (Bld) [Pure # fraction] 0.1 E9/L Normal 0.0-0.2 [facility] Comment on above: Order Comment: Order Added by Discern Expert. Performed By: #### 1 9537515, 3315231, 7650522, 98421753, 4681020, 2234070, 23254087, 42582042 ####[address] [address] Eosinophils/100 WBC (Bld) 2.5 % Normal 0.0-8.0 [facility] Comment on above: Order Comment: Order Added by Discern Expert. Performed By: #### 1 6587315, 7629438, 0276133, 15498481, 2138258, 7935814, 29386542, 09743420 ####[address] [address] Eosinophils/Leukocytes Auto (Bld) [Pure # fraction] 0.3 E9/L Normal 0.0-0.5 [facility] Comment on above: Order Comment: Order Added by Discern Expert. Performed By: #### 1 2106624, 8801665, 3764922, 62346242, 4812259, 0600184, 88879926, 02857029 ####[address] [address] Lymphocytes/100 WBC (Bld) 21.0 % Normal 14.0-50.0 [facility] Comment on above: Order Comment: Order Added by Discern Expert. Performed By: #### 1 0569454, 3916654, 5992473, 31017114, 4960601, 4650664, 62498748, 19972516 ####[address] [address] Lymphocytes/Leukocytes Auto (Bld) [Pure # fraction] 2.1 E9/L Normal 1.0-4.0 [facility] Comment on above: Order Comment: Order Added by Crystal Expert. Performed By: #### 1 2421588, 6801016, 2975465, 05187617, 9342216, 6115161, 02157684, 85054613 ####[facility] [address] [place] [address] Monocytes/100 WBC (Bld) 6.2 % Normal 4.0-14.0 [facility] Comment on above: Order Comment: Order Added by Discern Expert. Performed By: #### 1 5127750, 4744087, 0691824, 36313961, 3429608, 5359299, 16569518, 06501570 ####[address] [place] [address] Monocytes/Leukocytes Auto (Bld) [Pure # fraction] 0.6 E9/L Normal 0.2-1.0 [facility] Comment on above: Order Comment: Order Added by Crystal Expert. Performed By: #### 1 6336003, 1826490, 0802632, 05777489, 5415858, 0205232, 68537027, 66771569 ####[address] [address] Neutrophils/100 WBC (Bld) 69.3 % Normal 36.0-75.0 [facility] Comment on above: Order Comment: Order Added by Crystal Expert. Performed By: #### 1 7750518, 5311866, 9572952, 30371988, 6843656, 9624746, 60925453, 66042795 ####[facility] [address] [place] [address] Neutrophils/Leukocytes Auto (Bld) [Pure # fraction] 6.9 E9/L Normal 2.0-7.5 [facility] Comment on above: Order Comment: Order Added by Crystal Expert. Performed By: #### 1 5361160, 6988141, 7019487, 45475253, 6952872, 2542756, 31165857, 98974193 ####[facility] [address] [place] [address] BMPon 08-24-2020 Creatinine [Mass/Vol] 1.1 mg/dL Normal 0.5-1.3 [facility] Comment on above: Performed By: #### 1 9453190, 1862524, 0065966, 06304348, 6179198, 4314169, 69003632, 33194065 ####[facility] [address] [place] [address] Urea nitrogen [Mass/Vol] 19 mg/dL Normal 5-21 [facility] Comment on above: Performed By: #### 1 4395583, 4693172, 6801245, 66269261, 5387981, 4096349, 98192752, 15314318 ####[facility] [address] [place] [address] Urea nitrogen/Creatinine [Mass ratio] 17 No Units Normal 10-20 [facility] Comment on above: Performed By: #### 1 7842138, 9386863, 0787643, 51892379, 7010054, 2769400, 55659421, 09901517 ####[facility] [address] [place] [address] Anion gap [Moles/Vol] 14 mmol/L Normal 6-16 [facility] Comment on above: Performed By: #### 1 1086315, 4771813, 7045576, 53220501, 4945908, 6002566, 82373417, 08987728 ####[facility] [address] [place] [address] Calcium [Mass/Vol] 9.4 mg/dL Normal 8.9-11.1 [facility] Comment on above: Performed By: #### 1 9555769, 7695685, 4068966, 40898784, 3846310, 0446356, 10455109, 47437986 ####[facility] [address] [place] [address] Chloride [Moles/Vol] 94 mmol/L Low 101-111 [facility] Comment on above: Performed By: #### 1 0669347, 2375211, 1241609, 76230269, 1620742, 7026244, 22731865, 95703388 ####[facility] [address] [place] [address] CO2 [Moles/Vol] 29 mmol/L Normal 21-31 [facility] Comment on above: Performed By: #### 1 9736219, 4778066, 5769918, 19261466, 3776432, 5169605, 82630951, 92284028 ####[facility] [address] [place] [address] Glucose [Mass/Vol] 103 mg/dL Normal 55-199 [facility] Comment on above: Result Comment: If t his glucose result represents a fasting glucose, interpretation should refer to the following reference range: 55-99 mg/dL Performed By: #### 1 7318989, 1780891, 0358778, 37520105, 8863893, 3006438, 33526100, 33165082 ####[facility] [address] [place] [address] Potassium [Moles/Vol] 4.0 mmol/L Normal 3.5-5.3 [facility] Comment on above: Performed By: #### 1 9610254, 9826017, 2613341, 54409170, 2818549, 6656268, 51042426, 79919643 ####[facility] [address] [place] [address] Sodium [Moles/Vol] 133 mmol/L Low 135-145 [facility] Comment on above: Performed By: #### 1 5513560, 8511143, 0514717, 57082499, 4555506, 3996881, 48321501, 75066043 ####[facility] [address] [place] [address] BNPon 08-24-2020 Natriuretic peptide B (Bld) [Mass/Vol] 17 pg/mL Normal 5-80 [facility] Comment on above: Performed By: #### 1 8316031, 0963933, 0371776, 06143257, 8351682, 8406019, 12191548, 42338939 ####[address] [place] [address] CBC w/ Auto Diffon 1 Erythrocyte distribution width (RBC) [Ratio] 12.9 % Normal 10.9-14.2 [facility] Comment on above: Performed By: #### 1 4355251, 1199881, 9005718, 36812340, 3244728, 6816509, 76059921, 64988248 ####[address] [address] Hematocrit (Bld) [Volume fraction] 44.4 % Normal 37.7-49.0 [facility] Comment on above: Performed By: #### 1 1577398, 7373055, 7900495, 69755217, 1351429, 6124651, 48108821, 54990911 ####[address] [address] Hemoglobin (Bld) [Mass/Vol] 15.3 g/dL Normal 13.5-17.5 [facility] Comment on above: Performed By: #### 1 7366753, 3347909, 7335739, 89385295, 4681043, 5480932, 45677206, 34263428 ####[address] [address] MCH (RBC) [Entitic mass] 31.5 pg Normal 27.0-34.0 [facility] Comment on above: Performed By: #### 1 8098202, 7585322, 2839348, 41395140, 9182243, 8201951, 24821584, 94066627 ####[address] [address] MCHC (RBC) [Mass/Vol] 34.4 g/dL Normal 31.4-36.0 [facility] Comment on above: Performed By: #### 1 0251382, 9522526, 2191180, 79572914, 1886289, 8940915, 74507827, 42647845 ####[address] [place] [address] MCV (RBC) [Entitic vol] 91.6 fL Normal 80.0-100.0 [facility] Comment on above: Performed By: #### 1 8155987, 5020003, 4438792, 37465608, 4317976, 1426977, 43345084, 38824405 ####[address] [address] Platelet mean volume (Bld) [Entitic vol] 8.4 fL Normal 6.4-10.8 [facility] Comment on above: Performed By: #### 1 7014642, 8679120, 1021583, 25903037, 8996951, 5903904, 13517515, 24232234 ####[address] [address] Platelets (Bld) [#/Vol] 289.0 E9/L Normal 150.0-500.0 [facility] Comment on above: Performed By: #### 1 2922503, 9068348, 3758096, 62534412, 6574181, 3553587, 05064609, 27115332 ####[address] [address] RBC (Bld) [#/Vol] 4.8 E12/L Normal 4.3-5.9 [facility] Comment on above: Performed By: #### 1 2409598, 5399209, 3278256, 77071713, 9291470, 2045643, 10393431, 44457363 ####[address] [place] [address] WBC corrected for nucl RBC Auto (Bld) [#/Vol] 9.9 E9/L Normal 4.0-11.0 [facility] Comment on above: Performed By: #### 1 6822384, 1906401, 6583401, 36469806, 8066643, 6654275, 27222750, 47492329 ####[facility] [address] [place] [address] CTA Cheston 08-24-2020 CTA Chest Exam Date/Time: [...] 370 Contrast amount in ml's: 78 Normal [facility] Consent for Treatmenton 08-07 Consent for Treatment [id number] #1.00CD:127 Normal [facility] D-Dimeron 08-24-2020 Fibrin D-dimer FEU (PPP) [Mass/Vol] 845 ng/mL Abnormal 215-500 [facility] Comment on above: Result Comment: [...] infections Liver cirrhosis Performed By: #### 1 3617566, 8730263, 5517873, 63686350, 8297772, 0166389, 71066850, 71906238 ####[facility] [address] [place] [address] Discharge Instructionson Discharge Instructions [id number] #1.00CD:127 Normal [facility] ED Clinical Summaryon 2020 ED Clinical Summary [address] [address] ED Clinical Summary Person Information Name: LILIANA MICHAELS Kristine/[facility] Age: 55 Years : 1965 Sex: Male Language: Armenian PCP: SIMONE JEAN BAPTISTE DC Marital Status: Single Phone: [phone] Visit Id: Visit Reason: Rib/trunk pain-swelling; SIDE [...] 08/24/2020 03:27:58 08/24/2020 03:27:58 08/24/2020 03:27:58 ADDRESS: [address] [place] [id number] PHYS DOC NOTES: MEDICAL INFORMATION: Prescriptions Given: New Medications [facility], [address], [place] [id number], [phone] azithromycin (Zithromax TRI-AMIRA 500 mg oral tablet) [...] up: With: Address: When: SIMONE GONZALEZ [address] [place] [address] Business (1) In 1 day 08/25/2020 Comments: Patient is advised to follow-up with his primary care physician in 1 to 2 days. He is also advised to come back to the emergency department if symptoms get worse. DIAGNOSIS: 1:Rib pain on left side Normal [facility] ED Note-Physicianon 08-25-19 ED Note-Physician [...] date 08/24/20 2:30:00 EDT Rapid COVID Antigen ([facility] Orders: albuterol-ipratropiu m, 3 mL, Soln-Inh, Inhalation, Once, Stop date 08/24/20 0:16:00 EDT, STAT, Start date 08/24/20 0:16:00 EDT azithromycin, 500 mg = 1 tab(s), Oral, Daily, # 3 tab(s), Refills(s) 0, Pharmacy: [id number], 163, cm, 08/24/20 0:04:00 EDT, Height/Length Dosing, 101, kg, 08/24/20 0:04:00 EDT, Weight Dosing famotidine, 20 mg = 1 tab(s), Tab, Oral, Once, Stop date 08/24/20 0:17:00 EDT, STAT, Start date 08/24/20 0:17:00 EDT lidocaine topical, 1 patch(es), Topical, Daily, 7 patch(es), Refill(s) 0, apply 12 hours on and 12 hours off daily, [facility]/pharmacy #[id number], 163, cm, 08/24/20 0:04:00 EDT, Height/Length Dosing, 101, kg, 08/24/20 0:04:00 EDT, Julian (more content not included)... Normal [facility] Comment on above: Result Comment: [...] Document Reviewed: 11/28/2008 ExitCare? Patient Information ?2015 [employer]. This information is not intended to replace advice given to you by your health care provider. Make sure you discuss any questions you have with your health care provider. Normal [facility] ED Patient Summaryon 021 ED Patient Summary [place] [id number] Patient Discharge Instructions Person Information Name: LILIANA MICHAELS Age: 55 Years Arrival Date: 08/23/2020 23:48:11 Discharge Diagnosis: 1:Rib pain on left side Primary Care Physician: SIMONE JEAN BAPTISTE DC Provider Information Primary Provider: Pia LANE, David [employer] Supervisor:None The exam and treatment you received in the Emergency Department were for an urgent problem and are not intended as complete care. It is important that you follow up with a doctor, nurse practitioner, or physician?s engineering assistant for ongoing care. If your symptoms [...] Address: When: SIMONE JEAN BAPTISTE [address] [place] [address] [employer] (1) In 1 day 08/25/2020 Comments: Patient [...] opioids can be used to help relieve kuwiltbi-vm-ptprca pain and are often prescribed following a [...] be struggling (more content not included)... Normal [facility] PT & PTTon 08-24-2020 aPTT Coag (PPP) [Time] 30.2 second(s) Normal 25.1-36.5 [facility] Comment on above: Result Comment: Hepa rin therapeutic range (represented by Anti-Factor Xa activity of 0.2 - 0.4 U/mL) corresponds to PTT of 56.6 - 109.0 sec. Performed By: #### 1 3320456, 7017029, 2063859, 41153457, 1919359, 4540376, 65653708, 48363328 ####[place] [address] [address] INR Coag (PPP) [Relative time] 1.0 {INR} Invalid Interpretation Code [facility] Comment on above: Result Comment: INR results are specifically intended to assess patients stabilized on long-term Anticoagulation therapy suggested INR?s ?Less Intensive Anticoagulation? 2.0 ? 3.0 Conventional Range 3.0 ? 4.5 Performed By: #### 1 7923938, 0020833, 0207580, 40090455, 7211355, 1023374, 10086746, 37311706 ####[address] [address] PT Coag (PPP) [Time] 11.6 second(s) Normal 10.2-12.9 [facility] Comment on above: Performed By: #### 1 1499972, 7713379, 3727081, 25086700, 2827851, 6225402, 43982074, 98529209 ####[address] [address] RAD - Preliminary Cat Scan R eporton 08-24-2020 RAD - Preliminary Cat Scan Report [id number] #1.00CD:127 Normal [facility] Rapid COVID Antigen ([facility])on 08-24-2020 Rapid COV Int NEG Ctl Pass Normal [facility] Comment on above: Performed By: #### 2 [id number] ####[address] [address] Rapid COV Int POS Ctl Pass Normal [facility] Comment on above: Performed By: #### 2 [id number] ####[address] [address] SARS-CoV-2 (COVID-19) RNA KATT+probe Ql (Unsp spec) Not detected Normal Not Detected [facility] Comment on above: Result Comment: The [employer]? System for Rapid Detection of SARS-CoV-2 is [...] or revoked sooner. Performed By: #### 2 [id number] ####[address] [place] [address] Employed in Healthcare NO Normal [facility] Comment on above: Performed By: #### 2 [id number] ####[address] [place] [address] First Test Unknown [facility] Comment on above: Performed By: #### 2 [id number] ####[address] [place] [address] Hospitalized? NO Normal [facility] Comment on above: Performed By: #### 2 [id number] ####[facility] [address] [place] [address] ICU NO Normal [facility] Comment on above: Performed By: #### 2 [id number] ####[facility] [address] [place] [address] ? NO Normal [facility] Comment on above: Performed By: #### 2 [id number] ####[facility] [address] [place] [address] Resides in a [facility] Care Setting NO Normal [facility] Comment on above: Performed By: #### 2 [id number] ####[address] [address] Symptomatic as defined by [facility] YES Normal [facility] Comment on above: Performed By: #### 2 [id number] ####[address] [address] Troponin 0 Hr.on 08-24-2020 Troponin I.cardiac [Mass/Vol] 4.10 pg/mL Low 15.90-38.40 [facility] Comment on above: Result Comment: The 95% CI (Confidence Interval) PPV (Positive Predictive Value) for myocardial infarction in females is 38 pg/mL, in males 51 pg/mL. The results should be used in conjunction with clinical conditions of myocardial infarction. (Access High Sensitivity Troponin I Instructions For Use, [place], December 2017) Performed By: #### 1 8523923, 8131102, 3733167, 43599885, 8950602, 6340905, 43971669, [id number] ####[facility] [address] [place] [address] Troponin 3 Hr.on 08-24-2020 Troponin I.cardiac [Mass/Vol] 4.40 pg/mL Low 15.90-38.40 [facility] Comment on above: Result Comment: The 95% CI (Confidence Interval) PPV (Positive Predictive Value) for myocardial infarction in females is 38 pg/mL, in males 51 pg/mL. The results should be used in conjunction with clinical conditions of myocardial infarction. (Access High Sensitivity Troponin I Instructions For Use, [employer], December 2017) Performed By: #### 1 [id number] ####[facility] [address] [place] [address] XR Chest Single Viewon 08-24 XR Chest [...] V. Transcribed by: VIVIAN Technologist: DAT Perry [facility] eGFRon 08-24-2020 GFR/1.73 sq M.predicted among blacks MDRD (S/P/Bld) [Vol rate/Area] mL/min/{1.73_m2} Normal >=59 [facility] Comment on above: Order Comment: Order added by Discern Expert. Result Comment: eGFR is race adjusted. AA=. Performed By: #### 1 [id number], [id number], [id number], [id number], [id number], [id number], [id number], [id number] ####[facility] [address] [place] [address] GFR/1.73 sq M.predicted among non-blacks MDRD (S/P/Bld) [Vol rate/Area] mL/min/{1.73_m2} Normal >=59 [facility] Comment on above: Order Comment: Order added by Discern Expert. Result Comment: Wire Taper jeniffer kidney disease could be indicated at eGFR's of less than 60 mL/min/1.73m2. Kidney failure is indicated at less than 15 mL/min/1.73m2. Performed By: #### 1 [id number], [id number], [id number], [id number], [id number], [id number] ####[facility] [address] [place] [address] HIP RIGHT 1 OR 2 VWS WITH PE LVISon 07-24-2020 HIP RIGHT 1 OR 2 VWS WITH PELVIS [facility] Department of Radiology [address] [place] [id number] Patient Name: LILIANA MICHAELS : 1965 [...] Electronically signed: Ana M Mariee. Transcribed by: [email or web address], User Resident: Electronically Signed by: ANA M MARIEE @ 07/24/2020 10:01 AM Normal [facility] Comment on above: Order Comment: Views (X-RAY, HIP): Radiologic Protocol HIP RIGHT 1 OR 2 VWS WITH PE LVISon 04-24-2020 HIP RIGHT 1 OR 2 VWS WITH PELVIS [facility] Department of Radiology [address] [place] [phone] Patient Name: LILIANA MICHAELS : 1965 Sex: M Age: Race: White Pt. Location: Patient Status: D Ordered Date: 04/24/2020 10:40:00 AM Completed Date: 04/24/2020 10:48 AM Requesting Provider: JEY ELISE Attending Provider: Report Copy To: Signs & Symptoms: Z96.641 Presence of right artificial hip joint I10 History: [place] Comments: Views (X-RAY, HIP): Radiologic Protocol Exam: HIP RIGHT 1 OR 2 VWS WITH PELVIS HIP RIGHT 1 OR 2 VWS WITH PELVIS HISTORY: Hip replacement, follow-up. COMPARISON: 03/14/2020. IMPRESSION: 1. Redemonstrated hip prosthesis, no hardware complication or acute abnormality. Electronically signed: Ed España. Transcribed by: [email or web address], User Resident: Electronically Signed by: ED ESPAÑA @ 04/25/2020 08:22 AM Normal [facility] Comment on above: Order Comment: Views (X-RAY, HIP): Radiologic Protocol Operative Reporton 0 Operative Report MR#: [id number] 2 [facility] Pt. Name: Liliana Michaels Room #: 6AB 600635 Discharge 03/15/2020 Date: Birthdate: 1965 OPERATIVE REPORT [...] a (more content not included)... Normal [facility] BASIC METABOLIC PANELon 11-0 7-2020 Calcium [Mass/Vol] 8.8 mg/dL Normal 8.6-10.3 [facility] Comment on above: Order Comment: Views (X-RAY, HIP): Radiologic Protocol Performed By: #### 0 [id number] ####[id number] [facility] [place] [address], [facility] Chloride [Moles/Vol] 98 mmol/L Normal 98-107 [facility] Comment on above: Order Comment: Views (X-RAY, HIP): Radiologic Protocol Performed By: #### 0 0071 ####[facility] - [address] [place] [address], [facility] CO2 [Moles/Vol] 30 mmol/L Normal 21-31 [facility] Comment on above: Order Comment: Views (X-RAY, HIP): Radiologic Protocol Performed By: #### 0 0071 ####[place] [address] [place] [address], [facility] Creatinine [Mass/Vol] 0.96 mg/dL Normal 0.70-1.30 [facility] Comment on above: Order Comment: Views (X-RAY, HIP): Radiologic Protocol Performed By: #### 0 0071 ####[place] [address] [place] [address], [facility] GFR/1.73 sq M.predicted among blacks MDRD (S/P/Bld) [Vol rate/Area] mL/min/{1.73_m2} Normal >60 [facility] Comment on above: Order Comment: Views (X-RAY, HIP): Radiologic Protocol Performed By: #### 0 0071 ####[facility] GFR/1.73 sq M.predicted among non-blacks MDRD (S/P/Bld) [Vol rate/Area] mL/min/{1.73_m2} Normal >60 [facility] Comment on above: Order Comment: Views (X-RAY, HIP): Radiologic Protocol Performed By: #### 0 0071 ####[address] Glucose [Mass/Vol] 151 mg/dL High 70-100 [facility] Comment on above: Order Comment: Views (X-RAY, HIP): Radiologic Protocol Performed By: #### 0 0071 ####[address] Potassium [Moles/Vol] 4.4 mmol/L Normal 3.5-5.1 [facility] Comment on above: Order Comment: Views (X-RAY, HIP): Radiologic Protocol Performed By: #### 0 0071 ####[address] Sodium [Moles/Vol] 133 mmol/L Low 136-145 [facility] Comment on above: Order Comment: Views (X-RAY, HIP): Radiologic Protocol Performed By: #### 0 0071 ####[address] Urea nitrogen [Mass/Vol] 20 mg/dL Normal 7-25 [facility] Comment on above: Order Comment: Views (X-RAY, HIP): Radiologic Protocol Performed By: #### 0 0071 ####[address] CBC COMPLETE BLOOD COUNTon 05-15-2019 Erythrocyte distribution width (RBC) [Ratio] 12.2 % Normal 11.5-15.0 [facility] Comment on above: Order Comment: No: D o not add to previous draw Performed By: #### 5 0608 #### [facility] [address] [place] [id number], [facility] Hematocrit (Bld) [Volume fraction] 42.2 % Normal 39.0-50.0 [facility] Comment on above: Order Comment: No: D o not add to previous draw Performed By: #### 5 0608 #### [facility] [address] [place] [address], [facility] Hemoglobin (Bld) [Mass/Vol] 13.9 g/dL Normal 13.0-17.0 [facility] Comment on above: Order Comment: No: D o not add to previous draw Performed By: #### 5 0608 #### [facility] [address] [place] [id number], [facility] MCH (RBC) [Entitic mass] 31.4 pg Normal 27.0-33.0 [facility] Comment on above: Order Comment: No: D o not add to previous draw Performed By: #### 5 0608 #### [facility] [address] [place] [address], [facility] MCHC (RBC) [Mass/Vol] 32.9 g/dL Normal 32.0-35.0 [facility] Comment on above: Order Comment: No: D o not add to previous draw Performed By: #### 5 0608 #### [facility] [address] [place] [address], [facility] MCV (RBC) [Entitic vol] 95.5 fL Normal 82.0-98.0 T [facility] Comment on above: Order Comment: No: D o not add to previous draw Performed By: #### 5 0608 #### [facility] [address] [place] [id number], [facility] Nucleated RBC/100 WBC (Bld) [Ratio] 0 % Normal 0-0 [facility] Comment on above: Order Comment: No: D o not add to previous draw Performed By: #### 5 0608 #### [facility] [address] [place] [address], [facility] PLAT CNT 254 10*3/uL Normal 150-400 [facility] Comment on above: Order Comment: No: D o not add to previous draw Performed By: #### 5 0608 #### [facility] [address] [place] [address], [facility] RBC (Bld) [#/Vol] 4.42 10*6/uL Normal 4.20-5.70 [facility] Comment on above: Order Comment: No: D o not add to previous draw Performed By: #### 5 0608 #### [facility] [address] [place] [address], [facility] WBC (Bld) [#/Vol] 14.44 10*3/uL High 4.00-10.60 [facility] Comment on above: Order Comment: No: D o not add to previous draw Performed By: #### 5 0608 #### [facility] [address] [facility]. [address] POC GLUCOSE LABon 03-15-2020 Glucose [Mass/Vol] 193 mg/dL High 70-100 [facility] Comment on above: Performed By: #### 8 5499 #### [facility] [address] [place] [address], [facility] CBC W/DIFFon 03-14-2020 ABS IMM GRANS 0.2 10*3/uL Normal 0.0-0.2 [facility] Comment on above: Performed By: #### 5 0103 ####[facility] [place] [address], [facility] ABS NEUTROPHILS 8.0 10*3/uL High 1.6-7.6 [facility] Comment on above: Performed By: #### 5 0103 ####[facility] [facility] [place] [address], [facility] Basophils (Bld) [#/Vol] 0.1 10*3/uL Normal 0.0-0.2 [facility] Comment on above: Performed By: #### 5 0103 ####[facility] [facility] [place] [address], [facility] Basophils/100 WBC (Bld) 1.1 % High 0.0-1.0 T [facility] Comment on above: Performed By: #### 5 0103 ####[facility] [facility] [place] [address], [facility] Eosinophils (Bld) [#/Vol] 0.3 10*3/uL Normal 0.0-0.5 [facility] Comment on above: Performed By: #### 5 0103 ####[facility] [facility] [place] [address], [facility] Eosinophils/100 WBC (Bld) 2.7 % Normal 0.0-6.0 [facility] Comment on above: Performed By: #### 5 0103 ####[facility] [facility].[address] Erythrocyte distribution width (RBC) [Ratio] 12.3 % Normal 11.5-15.0 [facility] Comment on above: Performed By: #### 5 0103 ####[facility] [place] [address], [facility] Hematocrit (Bld) [Volume fraction] 50.5 % High 39.0-50.0 [facility] Comment on above: Performed By: #### 5 0103 ####[facility] [place] [address], [facility] Hemoglobin (Bld) [Mass/Vol] 17.3 g/dL High 13.0-17.0 [facility] Comment on above: Performed By: #### 5 3 ####[facility] IMMATURE GRANS 1.4 % High 0.0-1.0 [facility] Comment on above: Performed By: #### 5 0103 ####[facility] Lymphocytes (Bld) [#/Vol] 1.8 10*3/uL Normal 1.2-4.0 [facility] Comment on above: Performed By: #### 5 0103 ####[facility] Lymphocytes/100 WBC (Bld) 15.6 % Low 20.0-45.0 [facility] Comment on above: Performed By: #### 5 3 ####[address] MCH (RBC) [Entitic mass] 31.7 pg Normal 27.0-33.0 [facility] Comment on above: Performed By: #### 5 3 ####[facility] MCHC (RBC) [Mass/Vol] 34.3 g/dL Normal 32.0-35.0 [facility] Comment on above: Performed By: #### 5 3 ####[facility] MCV (RBC) [Entitic vol] 92.7 fL Normal 82.0-98.0 T [facility] Comment on above: Performed By: #### 5 3 ####[facility] [place] [address] Monocytes (Bld) [#/Vol] 0.9 10*3/uL Normal 0.1-1.0 [facility] Comment on above: Performed By: #### 5 3 ####[address] [place] [address], [facility] MONOS 8.2 % Normal 5.0-12.0 [facility] Comment on above: Performed By: #### 5 0103 ####[facility] [place] [address], [facility] Neutrophils/100 WBC (Bld) 71.0 % Normal 40.0-72.0 [facility] Comment on above: Performed By: #### 5 0103 ####[facility] [place] [address], [facility] Nucleated RBC/100 WBC (Bld) [Ratio] 0 % Normal 0-0 [facility] Comment on above: Performed By: #### 5 0103 ####[facility] [place] [address], [facility] PLAT CNT 301 10*3/uL Normal 150-400 [facility] Comment on above: Performed By: #### 5 0103 ####[facility] [place] [address], [facility] RBC (Bld) [#/Vol] 5.45 10*6/uL Normal 4.20-5.70 [facility] Comment on above: Performed By: #### 5 0103 ####[facility] [place] [address], [facility] WBC (Bld) [#/Vol] 11.22 10*3/uL High 4.00-10.60 [facility] Comment on above: Performed By: #### 5 3 ####[place] [address] [place] [address], [facility] HIP RIGHT 1 OR 2 VWS WITH PE LVISon 03-14-2020 HIP RIGHT 1 OR 2 VWS WITH PELVIS [facility] Department of Radiology [address] [place] [address] Patient Name: LILIANA MICHAELS : [...] purposes Electronically signed: Aria Steinberg. Transcribed by: [email or web address], User Resident: Electronically Signed by: ARIA STEINBERG @ 03/14/2020 03:44 PM Normal [facility] Comment on above: Order Comment: RT TH A POC GLUCOSE LABon 03-14-2020 Glucose [Mass/Vol] 222 mg/dL High 70-100 [facility] Comment on above: Performed By: #### 8 5499 #### [facility] [address] [place] [address], [facility] Glucose [Mass/Vol] 217 mg/dL High 70-[address] [facility] Comment on above: Performed By: #### 8 5499 ####[facility] [place] [address], [facility] Glucose [Mass/Vol] 141 mg/dL High 70-[address] [facility] Comment on above: Performed By: #### 8 5499 #### [facility] [address] [place], [place] [address] [place] [address] PORTABLE HIP RIGHT 1 OR 2 VW S WITH PELVISon 03-14-2020 PORTABLE HIP RIGHT 1 OR 2 VWS WITH PELVIS [facility] Department of Radiology [address] [place] [address] Patient Name: LILIANA MICHAELS : [...] air Electronically signed: Aria Steinberg. Transcribed by: [email or web address], User Resident: Electronically Signed by: ARIA STEINBERG @ 03/14/2020 03:46 PM Normal [facility] Comment on above: Order Comment: Hardw are Evaluation, AP/Lateral TYPE AND SCREENon 03-14-2020 ABO INTERPRETATION O Normal [facility] Comment on above: Performed By: #### 6 2586 ####[facility] [place] [address], [facility] RH INTERPRETATION Positive Normal [facility] Comment on above: Performed By: #### 6 2586 ####[facility] [place] [address], [facility] Vital Signs Date Time Vital Sign Value Performing Clinician Facility 11-09-2023 10:10-040 Body height 162.6 cm Naima Wright APRN-UPHOLSTERER [employer] Work Phone: [facility] 11-09-2023 10:10-0400 Body mass index (BMI) [Ratio] 35.27 kg/m2 Naima Wright APRN-[employer]PH[employer] Work Phone: [facility] 11-09-2023 10:10-0400 Body weight 93.21 kg Naima Wright PECAN CLEANER-UPH[employer] Work Phone: [facility] 11-09-2023 10:10-040 Diastolic blood pressure 66 mm[Hg] Naima Wright PECAN CLEANER-[employer] Work Phone: [facility] 11-09-2023 10:10-040 Heart rate 68 /min Naima Wright PECAN CLEANER-[employer] Work Phone: [facility] 11-09-2023 10:10-0400 Systolic blood pressure 98 mm[Hg] Naima MURILLO Work Phone: [facility] 08-10-2023 13:31-0400 Body height 162.6 cm Amador Son MD Work Phone: [facility] 08-10-2023 13:31-0400 Body mass index (BMI) [Ratio] 34.67 kg/m2 Amador Son MD Work Phone: [facility] 08-10-2023 13:31-0400 Body weight 91.63 kg Amador Son MD Work Phone: [facility] 08-10-2023 13:31-0400 Diastolic blood pressure 70 mm[Hg] Amador Son MD Work Phone: [facility] 08-10-2023 13:31-0400 Heart rate 69 /min Amador Son MD Work Phone: [facility] 08-10-2023 13:31-0400 Systolic blood pressure 116 mm[Hg] Amador Son MD Work Phone: [facility] 08-05-2023 17:30-0400 Diastolic blood pressure 67 mm[Hg] Amador Son MD Work Phone: [facility] 08-05-2023 17:30-0400 Heart rate 60 /min Amador Son MD Work Phone: [facility] 08-05-2023 17:30-0400 Respiratory rate 16 /min Amador Son MD Work Phone: [facility] 08-05-2023 17:30-0400 SaO2% (BldA) [Mass fraction] 96 % Amador Son MD Work Phone: [facility] 08-05-2023 17:30-0400 Systolic blood pressure 112 mm[Hg] Amador Son MD Work Phone: [facility] 08-05-2023 12:13-0400 Body height 162.6 cm Amador Son MD Work Phone: [facility] 08-05-2023 12:13-0400 Body mass index (BMI) [Ratio] 34.17 kg/m2 Amador Son MD Work Phone: [facility] 08-05-2023 12:13-0400 Body temperature 97.5 [degF] Amador oSn MD Work Phone: [facility] 08-05-2023 12:13-0400 Body weight 90.3 kg Amador Son MD Work Phone: [facility] 07-22-2023 14:38-0400 Body height 162.6 cm Amador Son MD Work Phone: [facility] 07-22-2023 14:38-0400 Body mass index (BMI) [Ratio] 34.33 kg/m2 Amador Son MD Work Phone: [facility] 07-22-2023 14:38-0400 Body weight 90.72 kg Amador Son MD Work Phone: [facility] 07-22-2023 14:38-0400 Diastolic blood pressure 90 mm[Hg] Amador Son MD Work Phone: [facility] 07-22-2023 14:38-0400 Heart rate 41 /min Amador Son MD Work Phone: [facility] 07-22-2023 14:38-0400 Systolic blood pressure 138 mm[Hg] Amador Son MD Work Phone: [facility] 07-14-2022 10:57-0500 Body height 162.56 cm Ishmael Simon Work Phone: [facility] [employer] 600 DO Work Phone: 07-14-2022 10:57-0500 Body mass index (BMI) [Ratio] 32.96 kg/m2 Ishmael Simon Work Phone: [facility] 600 DO Work Phone: 07-14-2022 10:57-0500 Body surface area Derived from formula 1.92 m2 Ishmael A Naderer Work Phone: [facility] 600 DO Work Phone: 07-14-2022 10:57-0500 Body weight 87.09 kg Ishmael A Naderer Work Phone: [facility] 600 DO Work Phone: 07-14-2022 10:57-0500 Diastolic blood pressure 64 mm[Hg] Ishmael A Naderer Work Phone: [facility] 600 DO Work Phone: 07-14-2022 10:57-0500 Heart rate 34 /min Ishmael A Naderer Work Phone: [facility] [facility] 600 DO Work Phone: 07-14-2022 10:57-0500 Systolic blood pressure 118 mm[Hg] Ishmael A Naderer Work Phone: [facility] 600 DO Work Phone: 01-28-2022 09:37-0400 Body height 162.56 cm Ishmael A Naderer Work Phone: [facility] 600 DO Work Phone: 01-28-2022 09:37-0400 Body mass index (BMI) [Ratio] 30.9 kg/m2 Ishmael A Naderer Work Phone: [facility] 600 DO Work Phone: 01-28-2022 09:37-0400 Body surface area Derived from formula 1.87 m2 Ishmael A Naderer Work Phone: [facility] 600 DO Work Phone: 01-28-2022 09:37-0400 Body weight 81.65 kg Ishmael Carterr Work Phone: [facility] 600 DO Work Phone: 01-28-2022 09:37-0400 Diastolic blood pressure 50 mm[Hg] Ishmael Carterr Work Phone: [facility] 600 DO Work Phone: 01-28-2022 09:37-0400 Heart rate 41 /min Ishmael Carterr Work Phone: [facility] 600 DO Work Phone: 01-28-2022 09:37-0400 Systolic blood pressure 112 mm[Hg] Ish[facility]el [facility]r [facility] 600 DO Work Phone: Encounters Encounter Date Encounter Type Care Provider Facility Start: 03-30-2024 End: 03-30-2024 Refill Ishmael Simon MD Work Phone: [facility] Comment on above: Degeneration of lumb ar intervertebral disc Start: 03-27-2024 End: 03-27-2024 Patient encounter procedure Ishmael Simon MD Work Phone: [facility] Work Phone: Start: 03-27-2024 End: 03-27-2024 ambulatory Ishmael Simon MD Work Phone: [facility] Work Phone: Start: 03-16-2024 End: 03-16-2024 ambulatory Danielle Bergeron Facility:[facility] Start: 03-16-2024 Non-patient / Non-visit [facility] Start: 03-01-2024 End: 03-01-2024 Refill Ishmael Simon MD Work Phone: [facility] Comment on above: Degeneration of lumb ar intervertebral disc Start: 02-14-2024 End: 02-14-2024 ambulatory [facility] Start: 02-14-2024 End: 02-14-2024 Subsequent hospital visit by physician Varsha [facility] Comment on above: Cardiac pacemaker in situ; Sinoatrial node dysfunction (Multi) Start: 02-06-2024 End: 02-06-2024 ambulatory ISHMAEL SIMON Not Available Start: 01-25-2024 End: 01-25-2024 ambulatory [facility] Start: 01-13-2024 End: 01-13-2024 ambulatory ISHMAEL SIMON Not Available Start: 11-09-2023 End: 11-09-2023 Office outpatient visit 40 minutes Naima MURILLO Work Phone: [facility] Comment on above: MRI safe cardiac pac [...] by physician [facility] 2 [facility] Comment on above: Pacemaker Start: 11-09-2023 End: 11-09-2023 ambulatory NAIMA WRIGHT [facility] Ambulatory Start: 10-10-2023 End: 10-10-2023 ambulatory ISHMAEL SIMON Not Available Start: 09-26-2023 End: 09-26-2023 ambulatory [facility] Start: 09-26-2023 End: 09-26-2023 Subsequent hospital visit by physician Vars[facility] Comment on above: Cardiac pacemaker in situ; Sinoatrial node dysfunction (Multi) Start: 08-12-2023 End: 08-12-2023 ambulatory ISHMAEL SIMON [facility] Start: 08-10-2023 End: 08-10-2023 Subsequent hospital visit by physician Varsha Ultrasound 3 [facility] Comment on above: Localized swelling o n left hand; S/P placement of cardiac pacemaker Start: 08-10-2023 End: 08-10-2023 ambulatory [facility] Ambulatory Start: 08-10-2023 End: 08-10-2023 Office outpatient visit 25 minutes Amador Son MD Work Phone: [facility] Comment on above: Chronotropic incompe tence (Primary Dx); Abnormal stress test; Sinus bradycardia; Sick sinus syndrome (CMS/HCC); Essential hypertension, benign; BMI 34.0-34.9,adult; Current smoker Start: 08-05-2023 End: 08-05-2023 Subsequent hospital visit by physician Amador Son MD Work Phone: [facility] Comment on above: Sinus bradycardia (P rimary Dx); Chronotropic incompetence; Sick sinus syndrome (CMS/HCC); Other fatigue; Abnormal stress test; Dyspnea; Pacemaker Start: 07-22-2023 End: 07-22-2023 ambulatory [facility] Ambulatory Start: 07-22-2023 End: 07-22-2023 Encounter for preprocedural cardiovascular examination [facility] Ambulatory Start: 07-22-2023 End: 07-22-2023 Office outpatient new 60 minutes Amador Son MD Work Phone: [facility] Comment on above: Chronotropic incompe tence (Primary Dx); Sinus bradycardia; Establishing care with new doctor, encounter for; BMI 34.0-34.9,adult; Sick sinus syndrome (CMS/HCC); Simple chronic bronchitis (CMS/HCC); Current smoker; Other fatigue; Preoperative cardiovascular examination Start: 07-22-2023 End: 07-22-2023 Patient encounter status Amador Son MD Work Phone: [facility] Work Phone: Start: 07-13-2023 End: 07-13-[address] [facility] Ambulatory Start: 07-13-2023 End: 07-13-[address] [facility] Ambulatory Start: 04-13-2023 End: 04-13-2023 ambulatory ISHMAEL [...] sit 15 minutes Ishmael Simon Work Phone: [facility] 600 DO Work Phone: Start: [...] 02-16-2022 Chart Update Ishmael Simon Work Phone: [facility] 250 DO Work Phone: Start: 02-15-[address] Valentino Ty Facility:[id number] Start: 01-28-[address] Ishmael Simon Facility: Start: 01-28-2022 Office consultation new/estab patient 60 min Ishmael Simon Work Phone: [facility] 600 DO Work Phone: Start: 01-14-2022 End: 01-15-2022 ambulatory TERESO COLMENARES . Facility:[facility] Start: 01-01-2022 End: 01-02-[address] ISHMAEL SIMON Facility:[facility] Start: 12-15-2021 End: 12-15-[address] RICKY IBARRA . Facility:[facility] Start: 12-14-2021 Encounter for preprocedural laboratory examination DR RICKY IBARRA . [facility] Start: 12-12-2021 End: 12-13-2021 ambulatory [...] 10-03-2020 End: 10-04-2020 ambulatory SIMONE RUIZ Facility:[facility] Start: 03-26-2020 End: 04-10-2020 ambulatory JEY ELISE Facility:[facility] Start: 03-14-2020 End: 03-15-2020 ambulatory JEY ELISE Facility:[facility] Procedures Date Procedure Procedure Detail Performing Clinician Start: 03-27-2024 MR lumbar spine wo con Ishmael Simon MD Work Phone: Start: 03-27-2024 XR pre/post mri xray Robert Simon MD Work Phone: Start: 02-14-2024 Rem interrog pm/ldls pm/ids <90 d tech review Amador Son MD Work Phone: Start: 11-09-2023 Ecg routine ecg w/le ast 12 lds w/i&r Naima Wright APRN-UPHOLSTERER [facility] Work Phone: Start: 11-09-2023 Program eval implant able in persn dual ld pacer Ana M Kumari APRN-UPHOLSTERER [facility] [employer] [facility] Work Phone: Start: 09-26-2023 CARDIAC DEVICE CHECK - REMOTE NAIMA WRIGHT Start: 09-26-2023 CARDIAC DEVICE CHECK - REMOTE Amador Son MD Work Phone: Start: 08-10-2023 VASC US UPPER EXTREM ITY VENOUS DUPLEX LEFT NAIMA WRIGHT Start: 08-10-2023 Dup-scan xtr veins unilateral/limited study Naima Wright PECAN CLEANER-[employer]OL[employer]ER [facility] Work Phone: Start: 08-05-2023 Radiologic exam ches t single view Ana M Kumari PECAN CLEANER-[employer] [facility] Work Phone: Start: 08-05-2023 Ecg routine ecg w/le ast 12 lds trcg only w/o i&r Ana M Kumari APRN-UPHOLSTERER [facility] Work Phone: Start: 08-05-2023 Electrophysiology study Amador Son MD Work Phone: Start: 08-05-2023 Echo tthrc r-t 2d w/ wom-mode compl spec&colr d Ana M Angel APRN-UPHOLSTERER [facility] Work Phone: Start: 08-05-2023 Ecg routine ecg w/le ast 12 lds trcg only w/o i&r Ana M Angel APRN-UPHOLSTERER [facility] Work Phone: Start: 08-05-2023 Basic metabolic pane l calcium total Ana M Angel PECAN CLEANER-UPHOL[employer]ER [facility] Work Phone: Start: 07-22-2023 CASE REQUEST EP [...] Performed By: #### V ITAD, PSASC #### [facility] [address] [place] [address] Dr. Britt Mendoza Start: 03-15-2020 ANESTH HIP ARTHROPLASTY SIMONE RUIZ Start: 03-15-2020 TOTAL HIP ARTHROPLASTY JEY ELISE Start: 03-14-2020 Antibody screen SIMONE BOLIVAR Comment on above: Performed By: #### [id number] ####[place] [id number] Start: 08-24-2019 Colonoscopy Ishmael faith MD Work Phone: Colonoscopy Ishmael Simon Work Phone: Excision of cyst Ishmael hutchison Work Phone: Hernia repair Ishmael Simon Work Phone: Operation on urinary system Ishmael Simon Work Phone: Surgical repair of u pper extremity Ishmael Simon Work Phone: Total replacement of hip Lillian Simon Work Phone: Plan of Treatment Date Care Activity Detail Author Start: 08-23-2029 Screening for malignant neoplasm of colon [facility] Start: 08-04-2024 Creatinine measurement Creatinine Level [facility] Start: 08-04-2024 Echocardiography Echocardiogram [facility] Start: 08-04-2024 Potassium measurement Potassium Level [facility] Start: 06-13-2024 End: 06-13-2024 Patient encounter procedure 06/13/2024 9:10 AM EST Office Visit [place] [address] [place] [address] Valentino Ty MD [address] [facility] [address] [place] [address] [facility] Start: 05-25-2024 Urine screening for protein Diabetes: Urine Protein Screening [facility] Start: 05-23-2024 End: 05-23-2024 Patient encounter procedure [facility] Start: 05-17-2024 Glaucoma screening Diabetes: Retinopathy Screening [facility] Start: 05-11-2024 End: 11-08-2024 Cardiac Device Check - In Clinic Cardiac Device Check - In Clinic Implantable Cardiac Device Routine Sinus bradycardia Sick sinus syndrome (Multi) Chronotropic incompetence MRI safe cardiac pacemaker in situ Expected: 05/11/2024 (Approximate), Expires: 11/08/2024 [facility] Service Area Work Phone: Comment on above: Expected: 05/11/2024 (Approximate), Expi res: 11/08/2024 Start: 04-24-2024 End: 04-24-2024 Patient encounter procedure 04/24/2024 11:00 AM EST Office Visit [facility] [address] [place] [address] Ishmael Simon MD [address] [place] [id number] [facility] Start: 04-10-2024 Hemoglobin A1c measurement Diabetes: Hemoglobin A1C [facility] Start: 01-08-2024 COVID-19 Vaccine () COVID-19 Vaccine () [facility] Start: 01-08-2024 Influenza vaccination [facility] Start: 11-21-2023 End: 11-21-2023 Patient encounter procedure 11/21/2023 8:50 AM EDT Office Visit [place] [address] [place] [address] Valentino Ty MD [address] [facility] [address], [address] [place] [address] [facility] Start: 11-09-2023 End: 08-04-2024 Cardiac Device Check - In Clinic [facility] Service Area Work Phone: Comment on above: Expected: 11/09/2023 (Approximate), Expi res: 08/04/2024 Start: 11-09-2023 End: 08-04-2024 XR Chest 2 Views [facility] Work Phone: Comment on above: Expected: 11/09/2023, Expires: Once for 1 Occurrenc es starting 11/09/2023 until 11/09/2023 Start: 11-09-2023 End: 11-09-2023 Patient encounter procedure [facility] Start: 11-03-2023 End: 11-03-2023 Patient encounter procedure 11/03/2023 8:50 AM EDT Office Visit [place] [address] [place] [phone] Valentino Ty MD [address] [facility] [address], [address] [place] [address] [facility] Start: 08-12-2023 End: 08-12-2023 Clinical Support 08/12/2023 8:30 AM EDT Clinical Support [facility] [address] [place] [address] [facility] Start: 08-10-2023 Subsequent hospital visit by physician 08/10/2023 2:09 PM EDT Hospital Encounter [facility] [address] [place] [phone] Localized swelling on left hand; S/P placement of cardiac pacemaker [facility] Comment on above: Localized swelling on left hand; S/P placement of cardiac pacemaker Start: 07-22-2023 End: 07-21-2025 US Heart Transthoracic Transthoracic Echo Complete Echocardiography Routine Sinus bradycardia Chronotropic incompetence Sick sinus syndrome (CMS/HCC) Other fatigue Preoperative cardiovascular examination Expected: 07/22/2023 (Approximate), Expires: 07/21/2025 [facility] Work Phone: Comment on above: Expected: 07/22/2023 (Approximate), Expi res: 07/21/2025 Start: 07-13-2023 FUV, Provider: Valentino Ty, Status: Pen, Time: 8:30 AM FUV, Provider: Valentino Ty, Status: Pen, Time: 8:30 AM [facility] [employer] [address] DO Work Phone: Start: 01-07-2023 COVID-19 Vaccine ( season) COVID-19 Vaccine ( season) [facility] Start: 01-07-2023 Influenza vaccination Influenza Vaccine (#1) [facility] Start: 07-14-2022 FUV, Provider: Valentino Ty, Status: Pen, Time: 10:40 AM FUV, Provider: Valentino Ty, Status: Pen, Time: 10:40 AM [facility] [employer] 600 DO Work Phone: Start: 02-15-2022 STRESS JUICE, Provider: CARLITO MCKEONI NUCLEAR ,[id number], Status: Pen, Time: 2:00 PM STRESS JUICE, Provider: CARLITO HHVI NUCLEAR 01,[id number], Status: Pen, Time: 2:00 PM [facility] [employer] 600 DO Work Phone: Start: 02-21-2014 Zoster Vaccines (1 of 2) Zoster Vaccines (1 of 2) [facility] Start: 02-21-1986 DTaP/Tdap/Td Vaccines (1 - Tdap) DTaP/Tdap/Td Vaccines (1 - Tdap) [facility] Start: 02-21-1983 Hepatitis B Vaccines (1 of 3 - 19+ 3-dose series) Hepatitis B Vaccines (1 of 3 - 19+ 3-dose series) [facility] Start: 02-21-1983 Urine screening for protein Diabetes: Urine Protein Screening [facility] Start: 02-21-1982 Diabetes mellitus screening Diabetes Screening [facility] Start: 02-21-1982 Hepatitis C screening Hepatitis C Screening [facility] Start: 02-21-1974 Diabetic foot examination Diabetes: Foot Exam [facility] Start: 02-21-1974 Glaucoma screening Diabetes: Retinopathy Screening [facility] Start: 02-21-1970 Pneumococcal Vaccine: Pediatrics (0 to 5 Years) and At-Risk Patients (6 to 64 Years) (1 - PCV) Pneumococcal Vaccine: Pediatrics (0 to 5 Years) and At-Risk Patients (6 to 64 Years) (1 - PCV) [facility] Start: 02-21-1970 Pneumococcal Vaccine: Pediatrics (0 to 5 Years) and At-Risk Patients (6 to 64 Years) (1 of 2 - PCV) Pneumococcal Vaccine: Pediatrics (0 to 5 Years) and At-Risk Patients (6 to 64 Years) (1 of 2 - PCV) [facility] Start: 02-21-1965 MMR Vaccines (1 of 1 - Standard series) MMR Vaccines (1 of 1 - Standard series) [facility] Start: 1964 COVID-19 Vaccine (#1) COVID-19 Vaccine (#1) [facility] Start: 1964 Creatinine measurement Creatinine Level [facility] Start: 1964 Echocardiography Echocardiogram [facility] Start: 1964 Hemoglobin A1c measurement Diabetes: Hemoglobin A1C [facility] Start: 1964 Hepatitis B Vaccines (1 of 3 - 3-dose series) Hepatitis B Vaccines (1 of 3 - 3-dose series) [facility] Start: 1964 HIV screening HIV Screening [facility] Start: 1964 Lipid panel Lipid Panel [facility] Start: 1964 Medicare Annual Wellness (AWV) Medicare Annual Wellness (AWV) [facility] Start: 1964 Medicare Annual Wellness Visit Medicare Annual Wellness Visit (AWV) [facility] Start: 1964 Potassium measurement Potassium Level [facility] Start: 1964 Screening for malignant neoplasm of colon [facility] End: 07-21-2024 Basic metabolic 2000 panel - Serum or Plasma Basic Metabolic Panel Lab Routine Sinus bradycardia Chronotropic incompetence Sick sinus syndrome (CMS/HCC) Other fatigue 1 Occurrences starting 07/22/2023 until 07/21/2024 [facility] Work Phone: Comment on above: 1 Occurrences starting 07/22/2023 until 07/21/2024 End: 07-21-2024 CBC panel - Blood by Automated count CBC Lab Routine Sinus bradycardia Chronotropic incompetence Sick sinus syndrome (CMS/HCC) Other fatigue 1 Occurrences starting 07/22/2023 until 07/21/2024 [facility] Work Phone: Comment on above: 1 Occurrences starting 07/22/2023 until 07/21/2024 ECG 12 lead (Clinic Performed) ECG 12 lead (Clinic Performed) ECG Routine Sinus bradycardia 11/09/2023 10:38 AM EDT [facility] Work Phone: ECG 12 lead STAT ECG 12 lead STA T ECG STAT 08/05/2023 12:30 PM EDT [facility] Work Phone: ECG 12 lead STAT ECG 12 lead STA T ECG STAT 08/05/2023 5:12 PM EDT [facility] Work Phone: PPM IMPLANT DC PPM IMPLANT DC S inus bradycardia Chronotropic incompetence Sick sinus syndrome (CMS/HCC) Other fatigue [facility] Work Phone: End: 07-21-2024 Prothrombin time (PT) Protime-INR Lab Routine Sinus bradycardia Chronotropic incompetence Sick sinus syndrome (CMS/HCC) Other fatigue 1 Occurrences starting 07/22/2023 until 07/21/2024 [facility] Work Phone: Comment on above: 1 Occurrences starting 07/22/2023 until 07/21/2024 Payers Date Payer Category Payer Self-pay 2023 Medicare HUMANA MEDICARE HUMANA GOLD CHOICE [id number] 2023-Present [address] [address] [place] [address] [id number] 2023 Medicare (Managed Care) HUMANA M EDICARE ADVANTAGE [id number] 2023 Medicare [id number] 1964 Unknown [id number] 2.840.1.830846.3.579.2. 647 1964 Unknown [id number] 2.840.1.219203.3.579.2. 647 1964 Unknown [id number] 2.16840.1.959528.3.579.2. 647 1964 Unknown [id number] 2.840.1.196138.3.579.2. 1068 1964 Unknown [id number] 2.16840.1.561977.3.579.2. 356 1964 Unknown [id number] 2.16840.1.715265.3.579.2. 356 1964 Unknown [id number] 2.16840.1.371474.3.579.2. 593 1964 Unknown [id number] 2.840.1.129727.3.579.2. 593 1964 Unknown [id number] 2.16.840.1.136096.3.579.2. 593 1964 Unknown [id number] 2.16.840.1.766800.3.579.2. 593 1964 Unknown [id number] 2.16.840.1.400614.3.579.2. 593 1964 Unknown [id number] 2.16.840.1.461189.3.579.2. 593 1964 Unknown [id number] 2.16.840.1.558501.3.579.2. 593 1964 Unknown [id number] 2.16.840.1.419248.3.579.2. 593 1964 Unknown [id number] 2.16.840.1.934565.3.579.2. 593 1964 Unknown [id number] 2.16.840.1.502512.3.579.2. 593 1964 Unknown [id number] 2.16.840.1.727606.3.579.2. 593 1964 Unknown [id number] 2.16.840.1.168328.3.579.2. 593 1964 Unknown [id number] 2.16.840.1.769440.3.579.2. 593 1964 Unknown [id number] 2.16.840.1.983839.3.579.2. 593 1964 Unknown [id number] 2.16.840.1.398915.3.579.2. 593 1964 Unknown [id number] 2.16.840.1.309615.3.579.2. 593 1964 Unknown [id number] 2.16.840.1.194957.3.579.2. 593 1964 Unknown [id number] 2.16.840.1.387084.3.579.2. 593 1964 Unknown [id number] 2.16.840.1.704753.3.579.2. 593 1964 Unknown [id number] 2.16.840.1.806310.3.579.2. 593 1964 Unknown [id number] 2.16.840.1.350223.3.579.2. 593 1964 Unknown [id number] 2.16.840.1.725586.3.579.2. 593 1964 Unknown [id number] 2.16.840.1.188521.3.579.2. 593 1964 Unknown [id number] 2.16.840.1.532025.3.579.2. 593 1964 Unknown [id number] 2.16.840.1.710810.3.579.2. 1244 1964 Unknown [id number] 2.16.840.1.614145.3.579.2. 1244 1964 Unknown [id number] 2.16.840.1.998472.3.579.2. 1244 1964 Unknown [id number] 2.16.840.1.019309.3.579.2. 1244 1964 Unknown [id number] 2.16.840.1.854046.3.579.2. 1244 1964 Unknown [id number] 2.16.840.1.846637.3.579.2. 1244 1964 Unknown [id number] 2.16.840.1.402835.3.579.2. 1259 1964 Unknown [id number] 2.16.840.1.540533.3.579.2. 1259 1964 Unknown [id number] 2.16.840.1.620142.3.579.2. 1259 1964 Unknown [id number] 2.16.840.1.849478.3.579.2. 1259 1964 Unknown [id number] 2.16.840.1.916376.3.579.2. 1246 1964 Unknown [id number] 2.16.840.1.959018.3.579.2. 1246 1964 Unknown [id number] 2.16.840.1.053915.3.579.2. 1246 1964 Unknown [id number] 2.16.840.1.114913.3.579.2. 1246 1964 Unknown [id number] 2.16.840.1.361694.3.579.2. 1246 1964 Unknown [id number] 2.16.840.1.159474.3.579.2. 1246 1959 Medicaid [id number] 1960 Medicare [id number] Unknown [id number] Unknown Unknown [employer] [id number] Unknown [id number] 2.16.840.1.768425.3.579.2. 531 Unknown [id number] 2.16.840.1.983841.3.579.2. 531 Social History Date Type Detail Facility Start: 07-13-2023 End: 08-10-2023 No alcohol use No alcohol use [facility] Comment on above: 1 pack daily; Start: 07-13-2023 End: 11-09-2023 Tobacco smoking status NHIS Smokes tobacco daily [facility] History of tobacco use Cigarette Smoker [facility] Work Phone: Start: 07-13-2023 End: 11-09-2023 Tobacco use and exposure Smokeless tobacco non-user [facility] Work Phone: Start: 07-22-2023 End: 11-09-2023 Alcohol intake Lifetime non-drinker (finding) [facility] Work Phone: Start: 07-13-2023 End: 08-10-2023 Tobacco use panel [facility] Start: 1965 Sex Assigned At Not on file [facility] Work Phone: Start: 07-12-2023 End: 11-09-2023 Exposure to SARS-CoV-2 (event) Not sure [facility] Frequency of Social Gatherings with Friends and Family Not on file [facility] Do you belong to any clubs or organizations such as amish groups, unions, fraternal or athletic groups, or [...] Healthcare Start: 07-06-2019 Tobacco smoking stat us [facility] Smoker (finding) [facility] Start: 03-17-2024 End: 03-28-2024 Sex Male (finding) [facility] Start: 1965 Sex Assigned At Male F [facility] Medical Equipment Procedure Code Equipment Code Equipment Origin al Text Equipment Identifier Dates Lead, Capsurefix Novus, 52 Cm - [id number] Start: 08-05-2023 Lead, Capsurefix Novus, 45 Cm - [id number] Start: 08-05-2023 Pacemaker, Dual Chamber, [place] Mri Xt Dr - [id number] Start: 08-05-2023 Clinical Notes 08-31-2020 to [...] DAY cetirizine (ZYRTEC) 10 mg, oral, Nightly tvikyrbhgcq-mwthxcemi-lueagmia (TRELEGY-ELLIPTA) 100-62.5-25 mcg blister with device 1 [...] 68 bpm, prolonged AV conduction with a UT interval of 220 ms, QRS durations 100 [...] prepare this document. 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 No symptoms [...] Diagnosis Date Arrhythmia CHF (congestive heart failure) ([facility]) COPD (chronic obstructive pulmonary disease) ([facility]) Hypertension Social History Social History Tobacco Use [...] breakfast cetirizine (ZYRTEC) 10 mg, oral, Nightly pwtqdpircbe-duzfhjkcm-pwzghdvt (TRELEGY-ELLIPTA) 100-62.5-25 mcg blister with device 1 [...] prepare this document. documented in this encounter [facility] Work Phone: 08-10-2023 Instructions Vero Mccarthy [...] Amador Son MD documented in this encounter [facility] Work Phone: 08-05-2023 Nurse Note Patient discharge instructions reviewed with patient and , verbalized understanding. Lt chest dressing remains dry/intact, no hematoma, no ecchymosis. Patient able to teachback site care instructions, follow up appointments. IV x2 removed and patient discharged to home via w/c. [facility] 08-05-2023 Nurse Note Patient discharge instructions [...] at this time. documented in this encounter [facility] Work Phone: 08-05-2023 Nurse Note Patient sitting up in chair, denies any complaints of incisional pain. Lt upper chest incision remains dry/intact. Will begin discharge instructions. [facility] Work Phone: 08-05-2023 Nurse Note Patient ambulated to , gait steady. Pacer rep has already met with patient and . Lt upper chest dressing remains dry/intact. Lt arm in immobilizer and ice pack over site. [facility] Work Phone: 08-05-2023 Note Formatting of this n ote might be different from the original. Post EKG and CXR performed at bedside. Pt denies needs at this time. Left chest remains soft and stable with no hematoma or oozing. [facility] Work Phone: 08-05-2023 Miscellaneous Notes Post [...] discussed with patient. documented in this encounter [facility] Work Phone: 08-05-2023 Hospital Discharge instructions Ana M Kumari APRN-UPHOLSTERER [employer] - 08/05/2023 5:00 PM EDT Images from [...] your arm above shoulder level. 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 There [...] sent through Care Everywhere.Pacemaker Insertion Discharge Instructions (Armenian)documented in this encounter [facility] Work Phone: 08-05-2023 Note Formatting of [...] Pt denies further needs at this time. [facility] Work Phone: 08-05-2023 Note Table formatting fro [...] of infection. The patient should call the lab instructor immediately if symptoms recur, or for any [...] model number W1 DR 017 number [id number]. Right atrial lead [employer] 5076/45 serial number [id number] 8 mm [id number]. Imp (more content not included)... [id number] 08-05-2023 Note Formatting of this n ote might be different from the original. Sedation Plan ASA 2 Mallampati class: II. Risks, benefits, and alternatives discussed with patient. [facility] Work Phone: 08-05-2023 Attending History and [...] some point he had some evaluation in [place] that shows no significant obstructive coronary disease [...] night however but few episodes in the manager club hours were also noted 5. No symptoms [...] breakfast cetirizine (ZYRTEC) 10 mg, oral, Nightly pzeryunkvjc-idhymrrew-epkvwqmx (TRELEGY-ELLIPTA) 100-62.5-25 mcg blister with device 1 [...] software was utilized to prepare this document. 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 No symptoms [...] breakfast cetirizine (ZYRTEC) 10 mg, oral, Nightly cybsgwrcwjg-bhhhftkrn-svyweban (TRELEGY-ELLIPTA) 100-62.5-25 mcg blister with device 1 [...] prepare this document. documented in this encounter [facility] Work Phone: 08-05-2023 Nurse Note Sterling from [employer] in room speaking to Pt and SO educating on home device monitor. [facility] 08-05-2023 Nurse Note Pt returned to room after echocardiogram. Denies needs at this time. 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 No symptoms [...] breakfast cetirizine (ZYRTEC) 10 mg, oral, Nightly gentllnpwri-ewasqggny-qvigklba (TRELEGY-ELLIPTA) 100-62.5-25 mcg blister with device 1 [...] prepare this document. documented in this encounter [facility] Work Phone: 07-22-2023 Instructions Jazz Flynn [...] AMADOR SON MD documented in this encounter [facility] Work Phone: 07-20-2022 Note CONSULTATION [...] right medial portion of his leg. [facility] 05-07-2022 Note CONSULTATION CONSULTATION DATE: 05/07/2022 [...] three months' time unless otherwise indicated. [facility] 01-14-2022 Note CONSULTATION CONSULTATION DATE: 01/14/2022 [...] it was recommended that he see a leather cartridge belt maker, which he did do. He did a Holter monitor study and is following up with his leather cartridge belt maker on 01/28/2022. Current medications include gabapentin 300 [...] agrees with the plan of care. [facility] 11-19-2021 Note CONSULTATION CONSULTATION DATE: 11/19/2021 [...] to S1. Activities such as standing, walking, manager club and evening hours, stairs, bending and physical [...] be followed up in the clinic post-procedure. [facility] Signed and Approved by: TERESO COLMENARES . 11/27/2021 14:13:00 [facility] 10-22-2021 Note CONSULTATION CONSULTATION DATE: 10/22/2021 [...] patient agrees with the plan of care. [facility] Signed and Approved by: TERESO COLMENARES . 11/04/2021 16:23:00 [facility] 10-01-2021 Note CONSULTATION CONSULTATION DATE: 10/01/2021 [...] shape. He has seen Dr. Nunn in [place] in the past regarding his back, and [...] Patient agrees with the plan of care. [facility] Signed and Approved by: TERESO COLMENARES . 10/08/2021 16:01:00 [facility] 08-31-2020 Note Microbiology PROCEDURE: Blood Culture [...] Locations R1: This test was performed at: [employer], [address] [place] [address], [id number] [place] [address], [facility] Comment on above: Performed By: #### 1 [id number] ####[place] [id number] [place] [address] 08-31-2020 Note Microbiology PROCEDURE: Blood Culture Charcoal [...] Locations R1: This test was performed at: [facility], [address] [place] [address], [address] [place] [address], [facility] Comment on above: Performed By: #### [id number] ####[address] [address] Evaluation note Diagnosis 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 Sinus bradycardia Other specified cardiac dysrhythmias Establishing care with new doctor, encounter for BMI 34.0-34.9,adult Sick sinus syndrome (CMS/HCC) Sinoatrial node dysfunction Simple chronic bronchitis (CMS/HCC) Simple chronic bronchitis Current smoker Other fatigue Preoperative cardiovascular examination Pre-operative cardiovascular examination documented in this encounter [facility] Work Phone: Evaluation note* Diagnosis Other [...] dysfunction Other fatigue documented in this encounter [facility] Work Phone: Evaluation note* Diagnosis Localized swelling on left hand S/P placement of cardiac pacemaker 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 Abnormal stress test Other nonspecific abnormal cardiovascular system function study Sinus bradycardia Other specified cardiac dysrhythmias Sick sinus syndrome (CMS/HCC) Sinoatrial node dysfunction Essential hypertension, benign BMI 34.0-34.9,adult Current smoker documented in this encounter [facility] Work Phone: Evaluation note* Diagnosis Localized swelling on left hand S/P placement of cardiac pacemaker documented in this encounter [facility] Work Phone: Evaluation note* Diagnosis Cardiac pacemaker in situ Sinoatrial node dysfunction (Multi) Sinoatrial node dysfunction documented in this encounter [facility] Work Phone: Evaluation note* Diagnosis Cardiac pacemaker in situ Sinoatrial node dysfunction (Multi) Sinoatrial node dysfunction documented in this encounter [facility] Work Phone: Evaluation note* Diagnosis Type 2 diabetes mellitus with hyperglycemia, without long-term current use of insulin (CMS/[facility])- Primary Essential hypertension, benign (CMS/HCC) Essential hypertension, [...] lumbosacral intervertebral disc documented in this encounter [facility] HealthcareEvaluation noteNo assessment [facility] Work Phone: Evaluation note* Diagnosis MRI safe [...] (pediatric) Current smoker documented in this encounter [facility] Work Phone: Evaluation note* Diagnosis Pacemaker Cardiac pacemaker in situ documented in this encounter [facility] Work Phone: History of Present illness Narrative* Patient is here for cardiovascular evaluation for second opinion in regard to documents resting sinus bradycardia. The patient is 56-year-old with history of tobacco use and COPD was evaluated recently due to shortness of breath and his stress test showed questionable inferior wall ischemia. This led to a cardiac evaluation in [place] and its not clear to me whether [...] recent ischemic evaluation * 5 follow-up in [address] [place] [address] 600 DO Work Phone: History of Present illness Narrative* Patient is here for cardiovascular evaluation for second opinion in regard to documents resting sinus bradycardia. The patient is 56-year-old with history of tobacco use and COPD was evaluated recently due to shortness of breath and his stress test showed questionable inferior wall ischemia. This led to a cardiac evaluation in [place] and its not clear to me whether [...] ischemic evaluation * 5 follow-up in 6 [facility] Work Phone: History of Present illness Narrative* Patient is here for cardiovascular evaluation for second opinion in regard to documents resting sinus bradycardia. The patient is 56-year-old with history of tobacco use and COPD was evaluated recently due to shortness of breath and his stress test showed questionable inferior wall ischemia. This led to a cardiac evaluation in [place] and its not clear to me whether [...] ischemic evaluation * 5 follow-up in 6 [facility] Work Phone: History of Present [...] ischemic evaluation. He underwent cardiac catheterization in [place] which showed no significant obstructive disease * [...] EKG or earlier if the need arise [facility] 600 DO Work Phone: Summary Purpose Family [...] COMPL SPEC&COLR D Amador Son MD [address] [address] Referral ID Status Reason Start Date Expiration Date Visits Requested Visits Authorized [id number] Pending Review Perform Procedure 07/22/2023 07/21/2024 1 1 Specialty Diagnoses / Procedures Referred By Contac t Referred To Contact Diagnoses Sinus bradycardia Establishing care with new doctor, encounter for Procedures ECG 12 lead (Clinic Performed) Amador Son MD [address] [address] Referral ID Status Reason Start Date Expiration Date V isits Requested Visits Authorized [id number] Authorized 07/22/2023 07/21/2024 1 1 Specialty Diagnoses / Procedures Referred By Contac t Referred To Contact Radiology Diagnoses Pacemaker Procedures XR chest 2 views Ana M Kumari, [employer] [facility] [address] [facility], [address] [address] Referral ID Status Reason Start Date Expiration Date Visits Requested Visits Authorized [id number] Authorized Perform Procedure 08/05/2023 08/04/2024 1 1 Specialty Diagnoses / Procedures Referred By Contac t Referred To Contact Cardiology Diagnoses Pacemaker Procedures Cardiac Device Check - In Clinic Ana M Kumari [employer] [address] [facility] Medical Office [facility], [address] [address] Referral ID Status Reason Start Date Expiration Date Visits Requested Visits Authorized [id number] Pending Review Perform Procedure 08/05/2023 08/04/2024 1 1 Specialty Diagnoses / Procedures Referred By Contac t Referred To Contact Cardiology Diagnoses Localized swelling on left hand S/P placement of cardiac pacemaker Procedures Vascular US upper extremity venous duplex left Naima Wright, [employer] [address] [facility] Medical Office [facility], [address] [place] [address] Referral ID Status Reason Start Date Expiration Date Visits Requested Visits Authorized [id number] Authorized Perform Procedure 08/09/2023 08/08/2024 1 1 Specialty Diagnoses / Procedures Referred By Contac t Referred To Contact Cardiology Diagnoses Cardiac pacemaker in situ Sinoatrial node dysfunction (Multi) Procedures Cardiac Device Check - Remote Amador Son MD [address] [address] Referral ID Status Reason Start Date Expiration Date Visits Requested Visits Authorized [id number] Pending Review Perform Procedure 08/08/2023 08/07/2024 1 1 Specialty Diagnoses / Procedures Referred By Contac t Referred To Contact Cardiology Diagnoses Sinus bradycardia Sick sinus syndrome (Multi) Chronotropic incompetence MRI safe cardiac pacemaker in situ Procedures Cardiac Device Check - In Clinic Naima Wright, [employer] [address] [facility], [address] [address] Referral ID Status Reason Start Date Expiration Date Visits Requested Visits Authorized [id number] Pending Review Perform Procedure 11/09/2023 11/08/2024 1 1 Specialty Diagnoses / Procedures Referred By Contac t Referred To Contact Cardiology Diagnoses Sick sinus syndrome (Multi) MRI safe cardiac pacemaker in situ Procedures Follow Up In Cardiology Naima Wright, [employer] [address] [facility], [address] [address] Amador Son MD [address] [address] Referral ID Status Reason Start Date Expiration Date V isits Requested Visits Authorized [id number] Authorized 11/09/2023 11/08/2024 1 1 Specialty Diagnoses / Procedures Referred By Contac t Referred To Contact Diagnoses Sinus bradycardia Procedures ECG 12 lead (Clinic Performed) Naima Wright [employer] [address] [facility], [address] [address] Referral ID Status Reason Start Date Expiration Date V isits Requested Visits Authorized [id number] Authorized 11/09/2023 11/08/2024 1 1 Chief Complaint [...] section and content) DATE CREATED AUTHOR 03/06/2021 [facility] DATE CREATED AUTHOR AUTHOR'S ORGANIZ ATION 03/12/2021 [facility] DATE CREATED AUTHOR AUTHOR'S ORGANIZ ATION 02/16/2022 [facility] DATE CREATED AUTHOR AUTHOR'S ORGANIZ ATION 07/16/2022 [facility] ical Center DATE CREATED AUTHOR AUTHOR'S ORGANIZ ATION 07/16/2022 [facility] DATE CREATED AUTHOR AUTHOR'S ORGANIZ ATION 09/17/2022 [facility] pital DATE CREATED AUTHOR AUTHOR'S ORGANIZ ATION 11/10/2023 [facility] DATE CREATED AUTHOR AUTHOR'S ORGANIZ ATION 02/07/2024 [facility] EPIC DATE CREATED AUTHOR AUTHOR'S ORGANIZ ATION 03/04/2024 [facility] DATE CREATED AUTHOR AUTHOR'S ORGANIZ ATION 04/03/2024 [facility] ysician Group Reason for Visit (unrecogniz ed section and content) Reason Comments New Patient Visit Pt is here today as a new patient from Dr. Ty Specialty Diagnoses / Procedures Referred By Isela mckay Referred To Contact Cardiology Diagnoses Sinus bradycardia Valentino Ty MD [address] [facility], [address] [place] [address] Amador Son MD [address] [facility] Medical [facility], [address] [place] [address] Referral ID Status Reason Start Date Expiration Date Visits Requested Visits Authorized [id number] Authorized Specialty Services Required 07/15/2023 07/14/2024 1 1 Specialty Diagnoses / Procedures Referred By Katyac t Referred To Contact Diagnoses Sinus bradycardia Chronotropic incompetence Sick sinus syndrome (CMS/HCC) Other fatigue Sinus bradycardia [R00.1] Chronotropic incompetence [I45.89] Sick sinus syndrome (CMS/HCC) [I49.5] Other fatigue [R53.83] Procedures UT INS NEW/RPLCMT PRM PM W/TRANSV ELTRD ATRIAL&VENT PPM IMPLANT DUAL Amador Son MD 254 [facility] [address] [place] [address] [facility] [address] [place] [address] Referral ID Status Reason Start Date Expiration Date Visits Re quested Visits Authorized [id number] 1 1 Reason Comments Wound Check Patient is having sw elling in his right hand Specialty Diagnoses / Procedures Referred By Isela t Referred To Contact Cardiology Diagnoses Localized swelling on left hand S/P placement of cardiac pacemaker Procedures Vascular US upper extremity venous duplex left Naima Wright E, [employer] [address] [facility] Medical Office [facility], [facility] [address] [place] [address] Referral ID Status Reason Start Date Expiration Date Visits Requested Visits Authorized [id number] Authorized Perform Procedure 08/09/2023 08/08/2024 1 1 Specialty Diagnoses / Procedures Referred By Isela t Referred To Contact Cardiology Diagnoses Cardiac pacemaker in situ Sinoatrial node dysfunction (Multi) Procedures Cardiac Device Check - Remote Amador Son MD 917 [facility] [address] [place] [address] Referral ID Status Reason Start Date Expiration Date Visits Requested Visits Authorized [id number] Pending Review Perform Procedure 08/08/2023 08/07/2024 1 1 Reason Onset Date Comments Med Refill 03/01/2024 Reason Onset Date Comments Med Refill 03/30/2024 Reason Comments Follow-up Pt is here today fol lowing up with device check Specialty Diagnoses / Procedures Referred By Contac t Referred To Contact Diagnoses Sinus bradycardia Procedures ECG 12 lead (Clinic Performed) Naima Wright, [facility] [address] [facility], [address] [address] Referral ID Status Reason Start Date Expiration Date V isits Requested Visits Authorized [id number] Authorized 11/09/2023 11/08/2024 1 1 Specialty Diagnoses / Procedures Referred By Contac t Referred To Contact Cardiology Diagnoses Pacemaker Procedures Cardiac Device Check - In Clinic UqocAna M Echo, [facility] [address] [facility], [address] [address] Referral ID Status Reason Start Date Expiration Date Visits Requested Visits Authorized [id number] Pending Review Perform Procedure 08/05/2023 08/04/2024 1 1 Specialty Diagnoses / Procedures Referred By Contac t Referred To Contact Radiology Diagnoses Pacemaker Procedures XR chest 2 views Ana M Kumari, [facility] [address] [facility], [address] [address] Referral ID Status Reason Start Date Expiration Date Visits Requested Visits Authorized [id number] Authorized Perform Procedure 08/05/2023 08/04/2024 1 1 Care Teams (unrecognized sec tion and content) Family Consultant Relationship Specialty Start Date End Date Ishmael Simon MD [address] [place] [phone] PCP - General Family Medicine 06/29/23 Family Consultant Relationship Specialty Start Date End Date Ishmael Simon MD [address] [place] [phone] PCP - General Family Medicine 06/29/23 Family Consultant Relationship Specialty Start Date End Date Ishmael Simon MD [address] [place] [address] PCP - General Family Medicine 06/29/23 Family Consultant Relationship Specialty Start Date End Date Ishmael Simon MD [address] [place] [address] PCP - General Family Medicine 06/29/23 Family Consultant Relationship Specialty Start Date End Date Ishmael Simon MD PCP - General Family Medicine 06/29/23 Family Consultant Relationship Specialty Start Date End Date Ishmael Simon MD [address] [place] [address] PCP - General Family Medicine 06/29/23 Naima Wright, [employer] [employer] [facility] [address] [facility] Medical Office Bld[address], [address] [place] [address] Nurse Practitioner Cardiology 11/07/23 Family Consultant Relationship Specialty Start Date End Date Ishmael Simon MD [address] [place] [address] PCP - General Family Medicine 10/10/23 Team [...] March 27, 2024 End: March 27, 2024 Family Consultant Relationship Specialty Start Date End Date Ishmael Simon MD [address] [place] [address] PCP - [facility] 06/29/23 Naima Wright, [employer] [facility] [address] [place] [address], [address] [address] Nurse Practitioner Cardiology 11/07/23 Family Consultant Relationship Specialty Start Date End Date Ishmael Simon MD [address] [place] [address] PCP - [facility] 06/29/23 Naima Wright, [employer] [address] [place] [address], [address] [address] Nurse Practitioner Cardiology 11/07/23 Scheduled Active and [...] Continuous, Starting on Tue08/05/23 at 1230, Preprocedure, inbound call center agent to EP lab 1221 (New Bag - Prov ider: Lexi Araiza RN)[phone] (Due: Stopped - Provider: Ana M M Quoc, [employer] [employer] [facility]) PRN Medication Order 08/03/2023 08/04/2023 08/05/2023 acetaminophen [...] BE BASED ON THE PRIMARY CLINICAL RECORDS. [employer] provides no warranty or guarantee of the accuracy or completeness of information in this document.
== END 2024-04-24 14:10 | disposition home or self-care (01) ==
LOC: PM 14:10
PROVIDERS: PCP Family Medicine; Visit Provider Anesthesiology Pain Medicine
DX: M54.16 Radiculopathy, lumbar region (principal)
CPT/HCPCS: G0463

== ENCOUNTER 2024-05-12 19:29 | Emergency (ER) | payer MEDICARE, SELFPAY ==
[2024-05-12 19:34] VITALS: BP 143/101; PULSE 70; TEMP 36.6; O2SAT 96; BMI 37.8
--- NOTE | 2024-05-12 20:01 | XR_ITS ---
[facility] [place] [id number] Patient Name: LILIANA MICHAELS MRN: [id number] date: 1965 Sex: M Assigned Patient Location: ER Current Patient Location: Accession/Order Number: [id number] Exam Date: 05/12/2024 20:18 Report Date: 05/12/2024 21:08 At the request of: ANDREINA GARIBAY Procedure: XR shoulder RT min 2V PROCEDURE: XR shoulder RT min 2V HISTORY: shoulder pain COMPARISON: XR shoulder bilateral 10/10/2023, CT Lung Screening 07/15/2022 FINDINGS: BONES:Narrowing of the acromioclavicular joint with prominent undersurface osteophytes. Small degenerative osteophytes along the inferior articular margin of the humeral head and glenoid. Chronic rounded calcification projecting over the glenohumeral joint on today's study, but seen within the soft tissues anterior to the subscapularis muscle on prior CT study. SOFT TISSUES:No visible soft tissue swelling. EFFUSION:None visible. OTHER: Negative. XR/XR shoulder RT min 2V IMPRESSION: 1. Moderate-marked degenerative changes of the acromioclavicular joint which would predispose to rotator cuff injury. 2. Mild degenerative changes of the glenohumeral joint. Electronically authenticated by: FLEX JACOBS Date: 05/12/2024 21:08
--- NOTE | 2024-05-12 20:19 | PC.NURSE ---
PT WAS PULLINNG OUTSIDE GARBAGE BIN AND TWISTED HIS ARM . PT NOW HAS RIGHT SHOULDER PAIN WITH DECREASED MOBILITY TO RIGHT SHOULDER
--- NOTE | 2024-05-12 20:34 | ED_ITS ---
HPI HPI - Extremity Injury (Upper) General Chief Complaint: Extremity Injury, Upper Stated Complaint: Upper Injury Time Seen by Provider: 05/12/24 20:22 Source: patient Mode of arrival: walk-in History of Present Illness HPI narrative: Patient is a 59-year-old male with a history of chronic back pain that he is currently in pain management for [facility] to the emergency department for right shoulder pain. He states earlier today he went to look at the garbage can from outside his home and he pulled on the garbage can with his hand at an angle. He states he felt a pull in his right shoulder and pain has gotten progressively worse throughout the day. He has not had any falls or injuries. No direct trauma to the shoulder. He reports pain radiating into the arm. He currently takes 7.5 mg Percocet tablets 4 times a day for his chronic back pain and is also prescribed baclofen, gabapentin 3 times daily. He is ambulatory. Related Data Home Medications ?Medication ?Instructions ?Recorded ?Confirmed albuterol 90 mcg/actuation aerosol mcg inhalation .Q6 10/14/22 inhaler baclofen 10 mg tablet 10 mg PO BID 10/14/22 04/16/24 fluticasone fur. 100 mcg-umeclid 1 inh inhalation DAILY 10/14/22 04/16/24 62.5 mcg-vilant 25 mcg inhalat.powder (Trelegy Ellipta) furosemide 40 mg tablet 40 mg PO BID 10/14/22 04/16/24 montelukast 10 mg tablet 10 mg PO DAILY 10/14/22 04/16/24 nabumetone 500 mg tablet 500 mg PO BID 10/14/22 04/16/24 omeprazole 40 mg capsule,delayed 40 mg PO DAILY 10/14/22 04/16/24 release oxycodone-acetaminophen 7.5 mg-325 1 tab PO Q6H 10/14/22 04/16/24 mg tablet spironolactone 100 mg tablet 100 mg PO DAILY 10/14/22 04/16/24 cetirizine 10 mg tablet (24Hour 10 mg PO DAILY PRN allergy symptoms 04/16/24 04/16/24 Allergy) zonisamide 50 mg capsule 150 mg PO .HS 04/24/24 04/24/24 Previous Rx's ?Medication ?Instructions ?Recorded baclofen 10 mg tablet See Rx Instructions .Route 04/12/24 .COMPLEX PRN muscle spasm #60 tabs ketorolac 10 mg tablet 10 mg PO TID PRN pain 2 days #6 05/12/24 tabs methylprednisolone 4 mg tablets in See Rx Instructions .Route 05/12/24 a dose pack (Medrol (Patricio)) .COMPLEX #21 ea Allergies Allergy/AdvReac Type Severity Reaction Status Date / Time No Known Drug Allergies Allergy Verified 05/12/24 19:34 Opioid HPI Opioid Management Most Recent Pain and Opioid Data: Last Pain Scale 10 05/12/24 20:18 05/12/24 Review of Systems ROS Constitutional Denies: fever or chills Ears, nose, mouth, and throat Denies: throat pain or nasal congestion Respiratory Denies: shortness of breath Gastrointestinal Denies: nausea or vomiting Musculoskeletal Reports: extremity pain, joint pain and limited range of motion; Denies: back pain or neck pain Integumentary/Breast Denies: rash Neurological Denies: numbness in extremities or weakness in extremities Hematologic/Lymphatic Denies: easy bruising or easy bleeding PFSH PFS Medical History (Updated 05/12/24 @ 20:33 by VINCENZO Jackson) Right shoulder pain ?M25.511 - Pain in right shoulder (ICD-10) Obesity ?E66.9 - Obesity, unspecified (ICD-10) Kidney failure ?N19 - Unspecified kidney failure (ICD-10) Smoker ?F17.200 - Nicotine dependence, unspecified, uncomplicated (ICD-10) COPD (chronic obstructive pulmonary disease) ?J44.9 - Chronic obstructive pulmonary disease, unspecified (ICD-10) Hypertension ?I10 - Essential (primary) hypertension (ICD-10) Surgical History (Updated 04/12/24 @ 14:06 by Yola Sen) History of removal of cyst ?Z98.890 - Other specified postprocedural states (ICD-10) H/O elbow surgery ?Z98.890 - Other specified postprocedural states (ICD-10) S/P bladder repair ?Z98.890 - Other specified postprocedural states (ICD-10) S/P total hip arthroplasty ?Z96.649 - Presence of unspecified artificial hip joint (ICD-10) S/P cardiac pacemaker procedure ?Z95.0 - Presence of cardiac pacemaker (ICD-10) Social History Little interest or pleasure in doing things: not at all Feeling down, depressed, or hopeless: not at all Exam Narrative Exam Narrative: Gen.: Awake, alert, in no distress Head: Normocephalic, atraumatic ENT: Moist mucous membranes, C-spine nontender Respiratory: No respiratory distress 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 Normal biceps tendon strength to flexion and extension of the right elbow. Pain with movement of the right shoulder and diffusely tender with no scapular tenderness or tenderness over the C-spine/T-spine. Pain with abduction of the right shoulder Psych: Normal mood and affect Neuro: No focal neuro deficit Skin: Warm, dry, intact Constitutional Vital Signs, click to edit/add: Last Vital Signs Temp 98 F 05/12/24 19:34 Pulse 70 05/12/24 19:34 Resp 20 05/12/24 19:34 BP 143/101 H 05/12/24 19:34 Pulse Ox 96 05/12/24 19:34 O2 Del Method Room Air 05/12/24 19:34 Course Vital Signs Vital signs: Vital Signs Temperature 98 F 05/12/24 19:34 Pulse Rate 70 05/12/24 19:34 Respiratory Rate 20 05/12/24 19:34 Blood Pressure 143/101 H 05/12/24 19:34 Pulse Oximetry 96 05/12/24 19:34 Oxygen Delivery Method Room Air 05/12/24 19:34 Temperature 98 F 05/12/24 19:34 Pulse Rate 70 05/12/24 19:34 Respiratory Rate 20 05/12/24 19:34 Blood Pressure 143/101 H 05/12/24 19:34 Pulse Oximetry 96 05/12/24 19:34 Oxygen Delivery Method Room Air 05/12/24 19:34 MDM - Extremity Injury (Upper) MDM Narrative Medical decision making narrative: Shoulder x-rays show moderate degenerative changes with no acute process. Tahira choe is neurovascularly intact and treated with intramuscular injections in the emergency department. We are limited on his prescriptions for home as he is currently in pain management and on high-dose chronic narcotics. He is already prescribed baclofen, gabapentin. He was treated with morphine, Solu-Medrol and Toradol in the emergency department and will be discharged home with a short course of NSAIDs and a steroid taper. He was referred to orthopedics. Return to the emergency department if symptoms change or worsen. SUPERVISED APC VISIT, PHYSICIAN ATTESTATION: Based on the medical record the care appears appropriate. ? Medical Records Attestation: I reviewed the patient's medical records. Discharge Plan Discharge Chief Complaint: Extremity Injury, Upper Clinical Impression: Right shoulder strain Patient Disposition: Home, Self-Care Time of Disposition Decision: 20:33 Condition: Good Prescriptions / Home Meds: New ketorolac 10 mg tablet 10 mg PO TID PRN (Reason: pain) 2 Days Qty: 6 0RF methylprednisolone [Medrol (Patricio)] 4 mg tablets,dose pack See Rx Instructions .ROUTE .COMPLEX Qty: 21 0RF Rx Instructions: Taper as directed No Action cetirizine [24Hour Allergy] 10 mg tablet 10 mg PO DAILY PRN (Reason: allergy symptoms) zonisamide 50 mg capsule 150 mg PO .HS albuterol 90 mcg/actuation aerosol inhalation .Q6 furosemide 40 mg tablet 40 mg PO BID montelukast 10 mg tablet 10 mg PO DAILY nabumetone 500 mg tablet 500 mg PO BID spironolactone 100 mg tablet 100 mg PO DAILY Trelegy Ellipta 100-62.5-25 mcg blister with device 1 inh inhalation DAILY omeprazole 40 mg capsule,delayed release(DR/EC) 40 mg PO DAILY oxycodone-acetaminophen 7.5-325 mg tablet 1 tab PO Q6H baclofen 10 mg tablet 10 mg PO BID Rx Instructions: 1/2 to 1 tab twice daily baclofen 10 mg tablet See Rx Instructions .ROUTE .COMPLEX PRN (Reason: muscle spasm) Qty: 60 2RF Rx Instructions: 1/2-1 TAB PO BID Print Language: Azeri Instructions: Muscle Strain (ED) Referrals: Ishmael Watts MD [Primary Care Provider] - 1 week Laurent Curry MD [Physician] - As needed
[2024-05-12] MEDS: ONDANSETRON 4 MG RAPDIS TABLET SL (20:53)
[2024-05-12] MEDS: KETOROLAC TROMETHAMINE 60 MG/2 ML VIAL IM (20:53)
[2024-05-12] MEDS: MORPHINE SULFATE 4 MG/ML VIAL IM (20:53)
[2024-05-12] MEDS: METHYLPREDNISOLONE SOD SUCC PF 125 MG/2 ML VIAL IM (20:54)
== END 2024-05-12 21:02 | disposition home or self-care (01) ==
PROVIDERS: Emergency Provider Emergency Medicine; PCP Family Medicine
DX: S46.911A Strain of unspecified muscle, fascia and tendon at shoulder and upper arm level, right arm, initial encounter (principal); Z95.0 Presence of cardiac pacemaker; X50.1XXA Overexertion from prolonged static or awkward postures, initial encounter
CPT/HCPCS: 73030; 96372; 99284; J1885; J2270; J2919; Q0162

== ENCOUNTER 2024-05-27 12:24 | Observation (INO) | payer MEDICARE, SELFPAY ==
[2024-05-27] VITALS (18 sets, daily range): BP systolic 129–171; BP diastolic 70–93; PULSE 65–88; TEMP 36.9–37.1; O2SAT 88–94; BMI 37.8; BMI 37.5
--- OUTSIDE RECORDS SUMMARY | 2024-05-27 12:31 | XMS_ITS | CCD ---
Author Organization [facility] CliniSyne Care Team Providers Care Migrant Leader Name Role Phone SIMONE RUIZ Admitting Unavailable SIMONE RUIZ Attending Unavailable ISHMAEL SIMON Referring Unavailable ISHMAEL SIMON Primary Care Unavailable JEY ELISE R Attending Unavailable JEY ELISE R Surgeon Unavailable [place] Procedure Practitioner Unavailab ISHMAEL Campoverde Primary Care Unavailable ALFRED, ISHMAEL Referring Unavailable NILDAJEY R Admitting Unavailable JEY ELISE R Attending Unavailable ISHMAEL SIMON Primary Care Unavailable ISHMAEL SIMON Referring Unavailable JEY ELISE R Admitting Unavailable Ishmael Simon Unavailable Unavailable Unavailable Karson, Dr. Armstrong Attending Unavaila ble Traboulssi, Dr. Armstrong Referring Unavaila ble Naderer, Dr. Ishmael Vallejo Primary Care Unavai lable Traboulnic, Dr. Armstrong Attending Unavaila ble Traboulssi, Dr. Armstrong Referring Unavaila ble Naderer, Dr. Ishmael Vallejo Primary Care Unavai lable Alfred, Dr. Ishmael Vallejo Primary Care Unavai lable Alfred, Dr. Ishmael Vallejo Referring Unavai lable Traboulhomei, Dr. Armstrong Attending Unavaila ble NADERER, DR [...] RICKY Bateman Admitting Unavailable IBARRA ., DR IRCKY Bateman Attending Unavailable NADERER, DR ISHMAEL Rae Primary Care Unavailable LAKSHMIPATHY ., NARENDRANATH Admitting Anupama vailable LAKSHMIPATHY ., NARENDRANATH Attending Anupama vailable JOSE CRUZ LEE Consulting Unavailable NADERER, DR ISHMAEL Rae Primary Care Unavailable LAKSHMIPATHY ., NARENDRANATH Consulting Anupama vailable LAKSHMIPATHY ., NARENDRANATH Admitting Anupama vailable LAKSHMIPATHY ., NARENDRANATH Attending Aunpama vailable LAKSHMIPATHY ., NARENDRANATH Consulting Anupama vailable [...] NADEREMarilee, DR ISHMAEL Rae Primary Care Unavailable Alfred LANE, Ishmael Vallejo Primary Care Provider Alfred LANE, Ishmael [place]jo Primary Care Provider Alfred LANE, Ishmael [place]jo Primary Care Provider Adriana BAILEY-TUBE REBUILDER, Naima E Unavailable Ishmael Simon MD Primary Care Provider [phone] Ishmael Simon MD Primary Care Provider Rubio HEADER SET UP OPERATOR-CDanielle Attending Provider Danielle Bergeron Attending Unavailable ChloeererIshmael Primary Care Unavailable Danielle Bergeron Admitting Unavailable Danielle Bergeron Attending Unavailable Chloeeremarilee, Ishmael Primary Care Unavailable Danielle Bergeron Admitting Unavailable NADERER, ISHMAEL Attending Unavailable NADERER, ISHMAEL Attending Unavailable NADERER, ISHMAEL Attending Unavailable NADERER, ISHMAEL Attending Unavailable Amy LANE, Jong Villalobos Attending Unavailable Amador Son MD Unavailable [phone] VALENTINO TY Attending Unavailable [facility] Hunt SY Primary Care Unavailabl e TITOOULNIC, MOURHAF Referring Unavailable [facility] Primary Care Unavailabl e SHAN SONTO N Attending Unavailable NADERERISHMAEL SY Primary Care Unavailabl e TITOOULHOMEI MOURHAF Referring Unavailable HUY AMADOR N Attending Unavailable NADERER, ISHMAEL SY Primary Care Unavailabl e NADERER, ISHMAEL HOOPER Primary Care Unavailabl e NAIMA WRIGHT E Attending Unavaila ble NADERER, ISHMAEL SY Primary Care Unavailabl e TRABOULSSI, BETHANYF Attending Unavailable KARSON MOURHAF Referring Unavailable NADEREISHMAEL Hunt SY Primary Care Unavailabl e HUY AMADOR N Attending Unavailable ADRIANA NAIMA E Referring Unavaila ble NADERERISHMAEL SY Primary Care Unavailabl e ADRIANA NAIMA E Referring Unavaila ble NADERER, ISHMAEL HOOPER Primary Care Unavailabl e HUY, AMADOR N Referring Unavailable NADERERISHMAEL SY Primary Care Unavailabl e ANA M KUMARI Referring Unavailable NADERER, ISHMAEL SY Primary Care Unavailabl e ANA M KUMARI Referring Unavailable NADERER, ISHMAEL SY Primary Care Unavailabl e HUY, AMADOR N Referring Unavailable NADERER, ISHMAEL SY Primary Care Unavailabl e HUY AMADOR N Referring Unavailable NADERER, ISHMAEL SY Primary Care Unavailabl e ADRIANA NAIMA E Referring Unavaila ble NADERERISHMAEL SY Primary Care Unavailabl e Medications Current Medications Medication Drug Class(es) Dates Sig (Normalized) Sig (Original) acetaminophen 325 mg oral tablet (1 source) Start: 08-05-2023 take 1 tablet by mouth every four hours as needed acetaminophen (Tylenol) tablet 650 mg acetaminophen 325 mg / oxyCODONE hydrochloride 7.5 mg oral tablet (20 sources) Opioid Agonist Start: 12-01-2023 End: 05-27-2024 take 1 tablet by mouth four times daily as needed for pain oxyCODONE-acetaminop hen (Percocet) 7.5-325 MG tablet Indications: Degeneration of lumbar intervertebral disc Take 1 tablet by mouth 4 (four) times a day as needed for severe pain or moderate pain 120 tablet 04/27/2024 05/27/2024 Active Start: 03-30-2021 take 1 tablet by [...] 19, 2018 12:00am June 22, 2018 9:37am aspirin 81 mg delayed release oral tablet (19 sources) Platelet Aggregation Inhibitor, Nonsteroidal Anti-inflammatory Drug Start: 12-01-2023 End: 11-30-2024 take 1 tablet by mouth once daily aspirin 81 mg EC tablet Indications: Chronotropic incompetence Take 1 tablet (81 mg) by mouth once daily. 12/01/2023 11/30/2024 Active baclofen 10 mg oral tablet (20 sources) gamma-Aminobutyric Acid-ergic Agonist Start: 01-27-2023 take 0.5-1 tablets by mouth twice daily baclofen (Lioresal) 10 mg tablet TAKE 1/2 TO 1 TABLET BY MOUTH TWICE A DAY 10/24/2023 Active cetirizine hydrochloride 10 mg oral tablet (20 sources) Histamine-1 Receptor Antagonist Start: 11-28-2023 take [...] 90 Refills: 0 Ordered: 28-Jan-2022 DO Active ciprofloxacin 500 mg oral tablet (3 sources) Quinolone Antimicrobial Start: 02-06-2024 End: 02-20-2024 take 1 tablet by mouth in the morning ciprofloxacin (Cipro) 500 MG tablet Indications: Acute prostatitis Take 1 tablet (500 mg) by mouth in the morning and 1 tablet (500 mg) before bedtime. Do all this for 14 days. 28 tablet 02/06/2024 02/20/2024 Active 0.5 ml dulaglutide 1.5 mg/ml auto-injector (1 source) GLP-1 Receptor Agonist Start: 04-24-2024 inject 0.75 mg by subcutaneous injection every week Dulaglutide (Trulicity) 0.75 MG/0.5ML solution auto-injector Indications: Type 2 diabetes mellitus with hyperglycemia, without long-term current use of insulin ([facility]) Inject 0.75 mg under the skin 1 (one) time per week 2 mL 5 04/24/2024 Active Fluticasone-Umecli din-Vilanter (20 sources) Anticholinergic, Corticosteroid, beta2-Adrenergic Agonist Start: 07-06-2019 Fluticasone-Umecl idin-Vilanter (Trelegy Ellipta) 100-62.5-25 mcg blister with device Active 1 MCG INHALATION As Directed July 06, 2019 12:00am fluticasone-umec lidin-vilanter (TRELEGY-ELLIPTA) 100-62.5-25 mcg blister with device Inhale 1 puff. Use as directed Active take 1 dose by inhal ation in the morning Esplsbrhqhz-Ibxumlefo-Gfibxt (Trelegy El lipta) 100-62.5-25 MCG/ACT aerosol powder Inhale 1 Dose in the morning. Active furosemide 40 mg oral tablet (20 [...] 2018 12:19pm gabapentin 300 mg oral capsule (20 sources) Anti-epileptic Agent Start: 07-06-2019 End: 02-03-2024 take 1 capsule by mouth once daily at bedtime gabapentin (Neurontin) 300 MG capsule Indications: Other intervertebral disc degeneration, lumbar region , Degeneration of lumbar or lumbosacral intervertebral disc TAKE 1 CAPSULE BY MOUTH EVERYDAY AT BEDTIME 30 capsule 2 02/03/2024 Active montelukast 10 mg oral tablet (20 sources) Leukotriene Receptor Antagonist Start: 07-06-2019 take 1 tablet by mouth before mealtime Montelukast 10 mg tablet Active 10 MG PO Before meals July 06, 2019 12:00am nabumetone 500 mg oral tablet (20 sources) Nonsteroidal Anti-inflammatory Drug Start: 07-06-2019 take [...] omeprazole 40 mg delayed release oral capsule (20 sources) Proton Pump Inhibitor Start: 12-13-2023 take 1 capsule by mouth once daily omeprazole (PriLOSEC) [address] capsule Indications: Alcoholic gastritis without bleeding , Alcoholic gastritis TAKE 1 CAPSULE BY MOUTH EVERY DAY 90 capsule 1 12/13/2023 Active Start: 06-19-2018 take 1 tablet by mindi once daily Omeprazole 20 mg Tablet,Delayed Release (Dr/Ec) Active 20 MG PO Daily June 19, 2018 12:00am 2 ml ondansetron 2 mg/ml injection (1 source) Serotonin-3 Receptor Antagonist Start: 08-05-2023 take 4 mg intravenously every eight hours as needed ondansetron (Zofran) injection 4 mg oxygen (O2) gas therapy (13 sources) oxygen (O2) gas therapy 2l at bedtime Active oxygen (O2) gas therapy 2l at bedtime 0 Active perflutren lipid microspheres (Definity) injection 0.5-10 mL of dilution (1 source) Start: 08-05-2023 perflutren lip id microspheres (Definity) injection 0.5-10 mL of dilution predniSONE 50 mg oral tablet (4 sources) Start: 01-13-2024 End: 01-19-2024 take 1 tablet by mouth once daily predniSONE (Deltasone) 50 MG tablet Indications: Chronic obstructive pulmonary disease, unspecified COPD type (CMS/HCC) Take 1 tablet (50 mg) by mouth Daily for 6 days 6 tablet 01/13/2024 01/19/2024 Active Start: 07-06-2019 Prednisone 10 mg Tablet Active 60 MG PO Daily July 06, 2019 12:00am administer with food or milk 0.25 mg, 0.5 mg dose 1.5 ml semaglutide 1.34 mg/ml pen injector (3 sources) Start: 04-24-2024 semaglutide (O zempic, 0.25 or 0.5 MG/DOSE,) 2 MG/1.5ML solution pen-injector Indications: Type 2 diabetes mellitus with hyperglycemia, without long-term current use of insulin (CMS/HCC) 0.25 mg SC weekly x 4 weeks, then 0.5 mg weekly 1 each 5 04/24/2024 Active Start: 04-24-2024 semaglutide (O zempic, 0.25 or 0.5 MG/DOSE,) 2 MG/1.5ML solution pen-injector Indications: Type 2 diabetes mellitus with hyperglycemia, without long-term current use of insulin (CMS/HCC) 0.25 mg SC weekly x 4 weeks, then 0.5 mg weekly 1 each 5 04/24/2024 Active Start: 04-24-2024 semaglutide (O zempic, 0.25 or 0.5 MG/DOSE,) 2 MG/1.5ML solution pen-injector Indications: Type 2 diabetes mellitus with hyperglycemia, without long-term current use of insulin (CMS/HCC) 0.25 mg SC weekly x 4 weeks, then 0.5 mg weekly 1 each 5 04/24/2024 Active spironolactone 100 mg oral tablet (20 sources) Aldosterone Antagonist Start: 04-09-2024 take 1 tablet by mouth once daily spironolactone (Aldactone) 100 MG tablet Indications: Essential hypertension, benign (CMS/HCC) TAKE 1 TABLET BY MOUTH EVERY DAY 90 tablet 5 04/09/2024 Active Start: 06-23-2018 Spironolactone (Aldactone) 50 mg Tablet Active 25 MG PO Daily 0 June 23, 2018 12:18pm Start: 06-19-2018 End: 06-23-2018 take 1 tablet by mouth once daily Spironolactone (Aldactone) 50 mg Tablet Discontinued 50 MG PO Daily June 19, 2018 12:00am June 23, 2018 12:19pm traMADol hydrochloride 50 mg oral tablet (1 source) Opioid Agonist Start: 08-05-2023 take 1 tablet by mouth every six hours as needed traMADol (Ultram) tablet 50 mg Completed/Discontinued Medications Medication Drug Class(es) Dates Sig (Normalized) Sig (Original) 200 actuat albuterol 0.09 mg/actuat dry powder inhaler (20 sources) beta2-Adrenergic Agonist Start: 06-23-2018 End: 10-21-2018 Albuterol Sulfate 90 mcg/actuation aerosol powdr breath activated Discontinued 2 INH INHALATION Four times daily 06 07June 23, 2018 12:00am October 19, 2018 11:00pm October 20, 2018 11:02pm take 2 puff(s) by in halation every four hours albuterol (Ventolin HFA) 90 mcg/actuatio n inhaler Inhale 2 puffs every 4 hours if needed. Active take 2 puff(s) by in halation every four hours for wheezing albuterol HFA 90 mcg/act inhaler Inhale 2 puffs every 4 (four) hours if needed for wheezing Active ceFAZolin 1000 mg injection (1 source) [...] 1 capsule by inhalation once daily Tiotropium [place] (Spiriva With Handihaler) 18 mcg capsule, w/inhalation [...] quadrant pain] Onset: 06-11-2022 Episodic Alcohol-related disorders (19 sources) Alcoholic gastritis; Translations: [Alcoholic gastritis without bleeding] Onset: 04-13-2023 04-13-2023 Chronic Cardiac dysrhythmias (20 sources) Sick sinus syndrome; Translations: [Sick sinus syndrome] Onset: 07-13-2023 07-22-2023 Chronic Cardiac dysrhythmias (20 sources) Sinus bradycardia; Translations: [Other specified cardiac dysrhythmias] Onset: 08-26-2022 Episodic Chronic obstructive pulmonary disease and bronchiectasis (20 sources) Chronic obstructive lung disease; Translations: [Chronic airway obstruction, not elsewhere classified] Onset: 04-13-2023 07-22-2023 Chronic Comment on above: Problem List clean-u p per request of Phys. EHR Cmte Conduction disorders (20 sources) Chronotropic incompetence; Translations: [Other specified conduction disorders] Onset: 07-13-2023 07-22-2023 Chronic Congestive heart failure; nonhypertensive (20 sources) Chronic diastolic heart failure; Translations: [Chronic diastolic (congestive) heart failure] Onset: 04-13-2023 Resolved: 12-01-2023 07-22-2023 Chronic Diabetes mellitus with complications (20 sources) Type 2 diabetes mellitus with hyperglycemia; Translations: [Type 2 diabetes mellitus] Onset: 05-13-2022 07-22-2023 Chronic Disorders of lipid metabolism (18 sources) Hyperlipidemia, unspecified; Translations: [Dyslipidemia] Onset: 05-13-2022 04-13-2023 Chronic Essential hypertension (20 sources) Essential (primary) hypertension; Translations: [Benign essential hypertension] Onset: 05-13-2022 07-22-2023 Chronic Comment on above: Problem List clean-u p per request of Phys. EHR Cmte Fluid and electrolyte disorders (4 sources) Hyponatremia; Translations: [Hypo-osmolality and hyponatremia] 06-19-2018 Episodic Comment on above: Problem List clean-u p per request of Phys. EHR Cmte Genitourinary symptoms and ill-defined conditions (20 sources) Dysuria; Translations: [Dysuria] Onset: 02-06-2024 02-06-2024 Episodic Comment on above: Problem List clean-u p per request of Phys. EHR Cmte Hyperplasia of prostate (17 sources) Benign prostatic hypertrophy with outflow obstruction; Translations: [Benign prostatic hyperplasia with lower urinary tract symptoms] Onset: 04-13-2023 04-13-2023 Chronic Inflammatory conditions of male genital organs (12 sources) Prostatitis; Translations: [Inflammatory disease of prostate, unspecified] Onset: 02-06-2024 02-06-2024 Episodic Nonspecific chest pain (2 sources) Atypical chest pain; Translations: [Other chest pain] 04-20-2023 Episodic Comment on above: Problem List clean-u p per request of Phys. EHR Cmte Nutritional deficiencies (20 sources) Vitamin D deficiency, unspecified; Translations: [Vitamin D deficiency] Onset: 05-07-2022 Chronic Osteoarthritis (19 sources) Osteoarthritis of right hip joint; Translations: [Unilateral primary osteoarthritis, right hip] Onset: 04-13-2023 04-13-2023 Chronic Other connective tissue disease (4 sources) Neuralgia and neuritis, unspecified; Translations: [NEURALGIA AND NEURITIS UNSPECIFIED] Onset: 07-23-2022 Episodic Other hereditary and degenerative nervous system conditions (1 source) Dystonia, unspecified; Translations: [DYSTONIA UNSPECIFIED] Onset: 07-30-2022 Chronic Other inflammatory condition of skin (17 sources) Plaque psoriasis; Translations: [Psoriasis vulgaris] Onset: 04-13-2023 04-13-2023 Chronic Other lower respiratory disease (1 source) Dyspnea, unspecified; Translations: [Dyspnea, unspecified] Onset: 02-15-2022 Episodic Other lower respiratory disease (2 sources) Rib pain; Translations: [Pleurodynia] 04-20-2023 Episodic Comment on above: Problem List clean-u p per request of Phys. EHR Cmte Other male genital disorders (17 sources) Secondary erectile dysfunction; Translations: [Male erectile dysfunction, unspecified] Onset: 04-13-2023 04-13-2023 Chronic Other nervous system disorders (4 sources) Other specified mononeuropathies; Translations: [OTHER SPECIFIED MONONEUROPATHIES] Onset: 07-20-2022 Chronic Other nervous system disorders (1 source) Other chronic pain; Translations: [OTHER CHRONIC PAIN] Onset: 01-22-2022 Chronic Other nervous system disorders (17 sources) Ulnar neuropathy of left arm; Translations: [Lesion of ulnar nerve, left upper limb] Onset: 04-13-2023 04-13-2023 Chronic Other nervous system disorders (17 sources) Carpal tunnel syndrome of left wrist; Translations: [Carpal tunnel syndrome, left upper limb] Onset: 04-13-2023 04-13-2023 Chronic Other nutritional; endocrine; and metabolic disorders (5 sources) Obesity; Translations: [Obesity, unspecified] Chronic Other nutritional; endocrine; and metabolic disorders (1 source) Obesity, unspecified; Translations: [OBESITY UNSPECIFIED] Onset: 05-13-2022 Chronic Other nutritional; endocrine; and metabolic disorders (20 sources) Body mass index 30+ - obesity; Translations: [Body mass index (BMI) 34.0-34.9, adult] Onset: 04-13-2023 07-22-2023 Chronic Other nutritional; endocrine; and metabolic disorders (6 sources) Severe obesity; Translations: [Class 2 severe obesity due to excess calories with serious comorbidity and body mass index (BMI) of 37.0 to 37.9 in adult ([facility])] Onset: 04-13-2023 04-24-2024 Chronic Other nutritional; endocrine; and metabolic disorders (2 sources) Body mass index (BMI) 37.0-37.9, adult; Translations: [Body mass index (BMI) 37.0-37.9, adult] Onset: 05-23-2024 Chronic Other nutritional; endocrine; and metabolic disorders [...] Episodic Other skin disorders (2 sources) Localized swelling of left hand; Translations: [Localized swelling, mass and lump, left upper limb] 08-10-2023 Episodic Peripheral and visceral atherosclerosis (20 sources) Peripheral vascular disease; Translations: [Peripheral vascular disease, unspecified] Onset: 04-13-2023 07-22-2023 Chronic Residual codes; unclassified (20 sources) Obstructive sleep apnea syndrome; Translations: [Obstructive sleep apnea (adult) (pediatric)] Onset: 04-13-2023 07-22-2023 Chronic Residual codes; unclassified (1 source) Obstructive sleep apnea (adult) (pediatric); Translations: [Obstructive sleep apnea (adult) (pediatric)] Onset: 07-22-2023 Chronic Respiratory failure; insufficiency; arrest (adult) (17 sources) Chronic hypoxemic respiratory failure; Translations: [Chronic respiratory failure with hypoxia] Onset: 04-13-2023 Resolved: 04-13-2023 04-13-2023 Chronic Respiratory failure; insufficiency; arrest (adult) (2 sources) Respiratory failure; Translations: [Respiratory failure, unspecified, unspecified whether with hypoxia or hypercapnia] 04-20-2023 Episodic Comment on above: Problem List clean-u p per request of Phys. EHR Cmte Spondylosis; intervertebral disc disorders; other back problems (20 sources) Spondylosis without myelopathy or radiculopathy, lumbar [...] Classification Problem Date Documented Da te Episodic/Chronic Administrative/social admission (7 sources) Patient encounter status; Translations: [Persons encountering health services in other specified circumstances] Onset: 04-13-2023 07-22-2023 Episodic Malaise and fatigue (17 sources) Fatigue; Translations: [Other fatigue] Onset: 07-22-2023 07-22-2023 Episodic Mood disorders (4 sources) Mood disorders Onset: 04-24-2024 04-24-2024 Other aftercare (1 source) Other terminal operator (current) drug therapy; Translations: [OTH SUPERINTENDENT LOCAL CURRENT DRUG THERAPY] Onset: 05-13-2022 Episodic Other aftercare (13 sources) Long-term current use of drug therapy; Translations: [Other terminal operator (current) drug therapy] Onset: 04-13-2023 04-13-2023 Episodic Other connective tissue disease (1 source) Other muscle spasm; Translations: [OTHER MUSCLE SPASM] Onset: 05-13-2022 Episodic Other lower respiratory disease (19 sources) Dyspnea; Translations: [Other respiratory abnormalities] Onset: 05-23-2023 05-23-2023 Episodic Other lower respiratory disease (4 sources) Pleurodynia; Translations: [PLEURODYNIA] Onset: 10-01-2021 Episodic Other lower respiratory disease (1 source) Dyspnea on exertion; Translations: [Other forms of dyspnea] 11-09-2023 Episodic Other lower respiratory disease (2 sources) Other forms of dyspnea; Translations: [Other forms of dyspnea] Onset: 05-23-2023 Episodic Other non-traumatic joint disorders (17 sources) Bilateral chronic pain of upper limbs; Translations: [Pain in right shoulder] Onset: 10-10-2023 10-10-2023 Episodic Other skin disorders (2 sources) Localized swelling, mass and lump, left upper limb; Translations: [Localized swelling, mass and lump, left upper limb] Onset: 08-10-2023 Episodic Other upper respiratory disease (17 sources) Polyp of nasal cavity and/or nasal sinus; Translations: [Nasal polyp, unspecified] Onset: 04-13-2023 04-13-2023 Episodic Unclassified (1 source) CONTACT W/AND (SUSP) EXPOS COVID-19; Translations: [CONTACT W/AND (SUSP) EXPOS COVID-19] Onset: 04-12-2022 Unclassified (13 sources) Onset: 07-13-2023 Resolved: 12-01-2023 07-13-2023 Results Test Name Value Interpretation Reference Range Facility Cardiac Device Check - In Cl inicon 05-23-2024 [facility] Work Phone: Radiology Study observation (narrative) [facility] Work Phone: ECG 12 lead (Clinic Performe d)on 05-23-2024 EKG performed today shows atrial paced rhythm at rate of 74 bpm QRS ration 100 ms QT corrected 448 ms. Rhythm strip shows the same pattern. [facility] Work Phone: [facility] Work Phone: MLR HEMOGLOBIN A1Con 024 Glucose [Mass/Vol] 131 mg/dL [facility] HbA1c (Bld) [Mass fraction] 6.2 % 4.5 - 6.2 % [facility] Comment on above: ADA RECOMMENDED LIMI T 4.0 - 6.0 ADA THERAPEUTIC TARGET < 7.0 ACTION SUGGESTED > 7.0 [facility] Magnetic resonance imaging r eportOrdered By: Germán Murphy on 03-27-2024 Study report [facility] [place] [address] [place], [place] [id number] MRI Report Signed Patient: Liliana Michaels JR MR#: [id number] : 1965 Acct:[id number] Age/Sex: 59 / M ADM Date: 4 Loc: MR Room: Type: [facility] Attending Dr: Danielle GAYTAN Copies to: LUKAS Burns~ Ordering Provider: LUKAS Burns Date of Service: 03/27/24 MR/MR lumbar spine wo con: LUMBAR DDD ([id number]) XR/XR pre/post mri xray: LUMBAR DDD MRI [...] Murphy Jr., D.OAtiya03/27/2024 11:57 AM Dictation Location: [place] [address] Transcribed By: [facility] 03/27/24 1157 Dictated By: Germán Murphy Jr, DO 03/27/24 1148 Signed By: 03/27/24 1157 [facility] XR pre/post mri xrayon 03-27 XR pre/post mri xray [facility] [place] [place] [address] MRI Report Signed Patient: Liliana Michaels JR MR#: [id number] : 1965 Acct:[id number] Age/Sex: 59 / M ADM Date: 03/27/24 Loc: MR Room: Type: [facility] Attending Dr: Danielle GAYTAN Copies to: LUKAS Burns Ordering Provider: LUKAS Burns Date of Service: 03/27/24 MR/MR lumbar spine wo con: LUMBAR DDD ([id number]) XR/XR pre/post mri xray: LUMBAR DDD MRI [...] Murphy Jr., D.O.03/27/2024 11:57 AM Dictation Location: [place] [address] Transcribed By: [facility] 03/27/24 1157 Dictated By: Germán Murphy Jr, DO 03/27/24 1148 Signed By: 03/27/24 1157 Normal [facility] XR chest 2V*on 03-16-2024 XR chest 2V* [facility] [place] [address] [place] [address] XRay Report Signed Patient: Liliana Michaels JR MR#: [id number] : 1965 Acct:[id number] Age/Sex: 59 / M ADM Date: 03/16/24 Loc: [facility] Room: Type: [facility] Attending Dr: Danielle GAYTAN Copies [...] Elia Rodrigez M.D.03/16/2024 8:54 AM Dictation Location: [place] [address] Transcribed By: [facility] 03/16/24 0854 Dictated By: Elia Rodrigez DO 03/16/24 0849 Signed By: 03/16/24 0854 Normal [facility] Cardiac Device Check - Remot neeta 02-14-2024 [facility] Work Phone: Radiology Study observation (narrative) [facility] Work Phone: [facility] UA (CLEAN/CATCH) MICROSC OPIC IF INDICATEon 02-06-2024 BILIRUBIN URINE Negative NEGATIVE [facility] BLOOD URINE TRACE-I NEGATIVE [facility] Clarity (U) SL CLOUDY CLEAR [facility] Color (U) LT. YELLOW YELLOW [facility] GLUCOSE URINE UA Negative NEGATIVE mg/dL [facility] Interpretation and review of laboratory results Abnormal [facility] Ketones Ql (U) Negative NEGATIVE mg/dL [facility] Leukocyte esterase Test strip Ql (U) LARGE Abnormal NEGATIVE [facility] NITRITE URINE Negative NEGATIVE [facility] pH (U) 6.0 [pH] 5.0 - 9.0 [facility] PROTEIN URINE Negative NEG/TRACE mg/dL [facility] SPECIFIC GRAVITY URINE 1.015 1.005 - 1.025 [facility] URINE MICROSCOPIC INDICATED YES [facility] UROBILINOGEN URINE 0.2 EU/dL 0.2 - 1.0 EU/dL [facility] XR CHEST 2 VIEWSon XR CHEST 2 VIEWS Interpreted By: Sancho Gross, STUDY: XR CHEST 2 VIEWS; 11/09/2023 9:46 am INDICATION: Signs/Symptoms:Pacem marilyn. COMPARISON: 08/05/2023 ACCESSION NUMBER(S): [id number] ORDERING CLINICIAN: ANA M KUMARI FINDINGS: Left-sided pacemaker in place. CARDIOMEDIASTINAL SILHOUETTE: Cardiomediastinal silhouette is normal in size and configuration. LUNGS: Lungs are clear. ABDOMEN: No remarkable upper abdominal findings. BONES: No acute osseous changes. IMPRESSION: 1. No evidence of acute cardiopulmonary process. MACRO: None Signed by: Sancho Gross 11/10/2023 8:35 AM Dictation workstation: [id number] [facility] Comment on above: Order Comment: Repor t to [facility] registration on 11/09/2023 at 8:30 AM for chest x-ray and device check prior to appointment with Dr. Son at 10 AM Cardiac Device Check - Remot neeta 09-26-2023 [facility] Work Phone: Radiology Study observation (narrative) [facility] Work Phone: US.doppler Upper extremity v ein - lefton 08-10-2023 Exam negative for acute deep venous thrombosis in the left upper extremity MACRO: None Signed by: Simone Ramos 08/10/2023 3:07 PM Dictation workstation: [id number] MMODAL Interpreted By: Simone Ramos, STUDY: VASC US UPPER EXTREMITY VENOUS DUPLEX LEFT; 08/10/2023 2:47 pm INDICATION: Signs/Symptoms: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 COMPARISON: Portable chest 05 August 2023 ACCESSION NUMBER(S): [id number] ORDERING CLINICIAN: NAIMA WRIGHT TECHNIQUE: Vascular ultrasound [...] Portable chest 05 August 2023 ACCESSION NUMBER(S): [id number] ORDERING CLINICIAN: NAIMA WRIGHT TECHNIQUE: Vascular ultrasound [...] Simone Ramos 08/10/2023 3:07 PM Dictation workstation: [id number] [facility] Work Phone: Radiology Study observation (narrative) [facility] Work Phone: US.doppler Upper extremity v ein - leftOrdered By: Simone Ramos on 08-10-2023 [facility] Work Phone: VASC US UPPER EXTREMITY VENO US DUPLEX LEFTon 08-10-2023 VASC US UPPER EXTREMITY VENOUS DUPLEX LEFT Interpreted By: Simone Ramos, STUDY: VASC US UPPER EXTREMITY VENOUS DUPLEX LEFT; 08/10/2023 2:47 pm INDICATION: Signs/Symptoms: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 COMPARISON: Portable chest 05 August 2023 ACCESSION NUMBER(S): [id number] ORDERING CLINICIAN: NAIMA WRIGHT TECHNIQUE: Vascular ultrasound [...] Simone Ramos 08/10/2023 3:07 PM Dictation workstation: [id number] [facility] Basic metabolic 2000 panelon 08-05-2023 Anion gap [Moles/Vol] 12 mmol/L 10 - 2 0 mmol/L [facility] Calcium [Mass/Vol] 9.6 mg/dL 8.6 - 10. 3 mg/dL [facility] Chloride [Moles/Vol] 102 mmol/L 98 - 10 7 mmol/L [facility] CO2 [Moles/Vol] 29 mmol/L 21 - 32 mmol/L [facility] Creatinine [Mass/Vol] 1.12 mg/dL 0.50 - 1.30 mg/dL [facility] GFR/1.73 sq M.predicted among non-blacks MDRD (S/P/Bld) [Vol rate/Area] 76 mL/min/{1.73_m2} - PINF [facility] Comment on above: Calculations of yang mated GFR are performed using the 2020 CKD-EPI Study Refit equation without the race variable for the IDMS-Traceable creatinine methods. https://jasn.asnjournals.org/content/early/ASN.2020 427013 Glucose [Mass/Vol] 95 mg/dL 74 - 99 mg/dL [facility] Interpretation and review of laboratory results Normal [facility] Potassium [Moles/Vol] 4.0 mmol/L 3.5 - 5.3 mmol/L [facility] Sodium [Moles/Vol] 139 mmol/L 136 - 145 mmol/L [facility] Urea nitrogen [Mass/Vol] 17 mg/dL 6 - 23 mg/dL [facility] Anion gap [Moles/Vol] 12 mmol/L Normal 10-20 [facility] Comment on above: Performed By: #### 2 4321-2 #### JAIMEE QURESHI ([id number]) [facility] [address] [place] [address] 86283 Calcium [Mass/Vol] 9.6 mg/dL Normal 8.6-10.3 [facility] Comment on above: Performed By: #### 2 4321-2 #### JAIMEE QURESHI ([id number]) [facility] [address] [place] [address] 26647 Chloride [Moles/Vol] 102 mmol/L Normal 98-107 [facility] Comment on above: Performed By: #### 2 4321-2 #### JAIMEE QURESHI ([id number]) [facility] [address] [place] [address] 06643 CO2 [Moles/Vol] 29 mmol/L Normal 21-32 [facility] Comment on above: Performed By: #### 2 4321-2 #### JAIMEE QURESHI ([id number]) [facility] [address] [place] [address] 40730 Creatinine [Mass/Vol] 1.12 mg/dL Normal 0.50-1.30 [facility] Comment on above: Performed By: #### 2 4321-2 #### JAIMEE QURESHI ([id number]) [facility]) [address] [place] [address] 50104 Glomerular filtration rate/1.73 sq M.predicted 76 mL/min/1.73m*2 Normal >60 [facility] Comment on above: Result Comment: Calc ulations of estimated GFR are performed using the 2020 CKD-EPI Study Refit equation without the race variable for the IDMS-Traceable creatinine methods. https://jasn.asnjournals.org/content/ASN 017936 Performed By: #### 2 4321-2 #### JAIMEE QURESHI ([id number]) [facility] [address] [place] [address] 33560 Glucose [Mass/Vol] 95 mg/dL Normal 74-99 [facility] Comment on above: Performed By: #### 2 4321-2 #### JAIMEE QURESHI ([id number]) [facility]) [address] [place] [address] 69683 Potassium [Moles/Vol] 4.0 mmol/L Normal 3.5-5.3 [facility] Comment on above: Performed By: #### 2 4321-2 #### JAIMEE QURESHI (95026) [facility]) [address] [place] [address] 28197 Sodium [Moles/Vol] 139 mmol/L Normal 136-145 [facility] Comment on above: Performed By: #### 2 4321-2 #### JAIMEE QURESHI (65232) [facility]) [address] [place] [address] 94827 Urea nitrogen [Mass/Vol] 17 mg/dL Normal 6-23 [facility] Comment on above: Performed By: #### 2 4321-2 #### JAIMEE QURESHI ([id number]) [facility] [address] [place] [address] 32662 CBC panel Auto (Bld)on 08-04 Erythrocyte distribution width (RBC) [Ratio] 13.0 % 11.5 - 14.5 % [facility] Hematocrit (Bld) [Volume fraction] 46.9 % 41.0 - 52.0 % [facility] Hemoglobin (Bld) [Mass/Vol] 16.1 g/dL 13.5 - 17.5 g/dL [facility] Interpretation and review of laboratory results Normal [facility] MCH (RBC) [Entitic mass] 31.5 pg 26.0 - 34.0 pg [facility] MCHC (RBC) [Mass/Vol] 34.3 g/dL 32.0 - 36.0 g/dL [facility] MCV (RBC) [Entitic vol] 92 fL 80 - 100 fL [facility] Nucleated RBC/100 WBC (Bld) [Ratio] 0.0 % [facility] Platelets (Bld) [#/Vol] 279 10*3/uL [facility] RBC (Bld) [#/Vol] 5.11 10*6/uL [facility] WBC (Bld) [#/Vol] 8.9 10*3/uL [facility] Erythrocyte distribution width (RBC) [Ratio] 13.0 % Normal 11.5-14.5 [facility] Comment on above: Performed By: #### 5 8410-2 #### JAIMEE QURESHI (23255) [facility] ([facility]) [address] [place] [address] 64586 Hematocrit (Bld) [Volume fraction] 46.9 % Normal 41.0-52.0 [facility] Comment on above: Performed By: #### 5 8410-2 #### JAIMEE QURESHI (29121) [facility] ([facility]) [address] [place] [address] 51445 Hemoglobin (Bld) [Mass/Vol] 16.1 g/dL Normal 13.5-17.5 [facility] Comment on above: Performed By: #### 5 8410-2 #### JAIMEE QURESHI (80305) [facility] ([facility]) [address] [place] [address] 82313 MCH (RBC) [Entitic mass] 31.5 pg Normal 26.0-34.0 [facility] Comment on above: Performed By: #### 5 8410-2 #### JAIMEE QURESHI (55602) [facility] ([facility]) [address] [place] [address] 32599 MCHC (RBC) [Mass/Vol] 34.3 g/dL Normal 32.0-36.0 [facility] Comment on above: Performed By: #### 5 8410-2 #### JAIMEE QURESHI (78426) [facility] ([facility]) [address] [place] [address] 94409 MCV (RBC) [Entitic vol] 92 fL Normal 80-100 U [facility] Comment on above: Performed By: #### 5 8410-2 #### JAIMEE QURESHI (61442) [facility] [address] [place] [address] 07782 Nucleated RBC/100 WBC (Bld) [Ratio] 0.0 /100 WBCs Normal 0.0-0.0 [facility] Comment on above: Performed By: #### 5 8410-2 #### JAIMEE QURESHI (53179) [facility] [address] [place] [address] 34352 Platelets (Bld) [#/Vol] 279 x10*3/uL Normal 150-450 [facility] Comment on above: Performed By: #### 5 8410-2 #### JAIMEE QURESHI (67707) [facility] [address] [place] [address] 94664 RBC (Bld) [#/Vol] 5.11 x10*6/uL Normal 4.50-5.90 [facility] Comment on above: Performed By: #### 5 8410-2 #### JAIMEE QURESHI (80629) [facility] ([facility]) [address] [place] [address] 83913 WBC (Bld) [#/Vol] 8.9 x10*3/uL Normal 4.4-11.3 [facility] Comment on above: Performed By: #### 5 8410-2 #### JAIMEE QURESHI (85139) [facility] ([facility] [address] [place] [address] 52583 Electrophysiology studyon [facility] Work Phone: PT and aPTT panel Coag (PPP) on 08-05-2023 aPTT Coag (PPP) [Time] 34 s [facility] INR Coag (PPP) [Relative time] 1.0 {INR} 0.9 - 1.1 [facility] Interpretation and review of laboratory results Normal [facility] PT Coag (PPP) [Time] 11.0 s [facility] The APTT is no longer used for monitoring Unfractionated Heparin Therapy. For monitoring Heparin Therapy, use the Heparin Assay. [facility] aPTT Coag (PPP) [Time] 34 s Normal 27-38 [facility] Comment on above: Order Comment: The A PTT is no longer used for monitoring Unfractionated Heparin Therapy. For monitoring Heparin Therapy, use the Heparin Assay. Performed By: #### 3 4529-8 #### JAIMEE QURESHI (35711) [facility] ([facility] [address] [place] [address] 61036 INR Coag (PPP) [Relative time] 1.0 Normal 0.9-1.1 [facility] Comment on above: Order Comment: The A PTT is no longer used for monitoring Unfractionated Heparin Therapy. For monitoring Heparin Therapy, use the Heparin Assay. Performed By: #### 3 4529-8 #### JAIMEE QURESHI (84453) [facility] ([facility]) [address] [place] [address] 65047 PT Coag (PPP) [Time] 11.0 s Normal 9.8-12.8 [facility] Comment on above: Order Comment: The A PTT is no longer used for monitoring Unfractionated Heparin Therapy. For monitoring Heparin Therapy, use the Heparin Assay. Performed By: #### 3 4529-8 #### JAIMEE QURESHI (41621) [facility] ([facility]) [address] [place] [address] 99195 TRANSTHORACIC ECHO (TTE) MARIA TERESA Olmos 08-05-2023 TRANSTHORACIC ECHO (TTE) COMPLETE [address] [address] TRANSTHORACIC ECHOCARDIOGRAM REPORT Patient Name: LILIANA MICHAELS Reading Physician: [id number] Batsheva Morris MD, [facility] Study Date: 08/05/2023 Ordering Provider: [id number] ANA M ANGEL MRN/PID: [id number] Fellow: Nurse: Date of /Age: 10 1965 [employer]: Eli Pisano RDGRACY Gender: M Additional Staff: Height: 162.56 cm Admit Date: Weight: 90.72 kg Admission Status: Outpatient BSA / BMI: 1.96 m2 / 34.33 Department Location: [facility]/m2 Echo Lab Blood Pressure: 128 /73 mmHg Study Type: TRANSTHORACIC ECHO (TTE) COMPLETE Diagnosis/ICD: Bradycardia, unspecified-R00.1 Indication: Abnormal EKG, Pre-EP CPT Codes: Echo Complete w Full Doppler-65970 Study Detail: The following Echo studies were [...] LA Area A2C: 18.9 cm2 [place] A4C: 5.8 cm [place] A2C: 5.5 cm LA Volume Index: 27.0 [...] 1.3 m/s (0.6-0.9m/s) PV Max P.6 mmHg [id number] Batsheva Morris MD, FACC Electronically signed on 08/05/2023 at 2:30:14 PM Final Normal [facility] US Heart TransthoracicOrdere d By: Batsheva Morris on 08-05-2023 Aortic Valve Area by Continuity of Peak Velocity 2.42 cm2 [facility] Work Phone: Aortic Valve Area by Continuity of VTI 2.62 cm2 [facility] Work Phone: AV mn grad 4.0 mmHg [facility] Work Phone: AV pk grad 8.2 mmHg [facility] Work Phone: AV pk abiodun 1.43 m/s [facility] Work Phone: LA vol index A/L 29.3 ml/m2 [facility] Work Phone: LV A4C EF 62.4 [facility] Work Phone: LV biplane EF 60 % [facility] Work Phone: LVIDd 5.28 cm [facility] Work Phone: LVOT diam 2.00 cm [facility] Work Phone: MV avg E/e' ratio 7.78 [facility] Work Phone: MV E/A ratio 0.88 [facility] Work Phone: RV free wall pk S' 15.40 cm/s [facility] Work Phone: RVSP 23.4 mmHg [facility] Work Phone: Tricuspid annular plane systolic excursion 3.6 cm [facility] Work Phone: [facility] Work Phone: US Heart Transthoracicon [place] [id number] TRANSTHORACIC ECHOCARDIOGRAM REPORT Patient Name: LILIANA Quiñones Physician: [id number] Morris MD, [facility] Study Date: 08/05/2023 Ordering Provider: [id number] ANA M ANGEL MRN/PID: [id number] Fellow: Nurse: Date of /Age: 10 1965 / 58 [employer] Officer: Eli Pisano RDCS Gender: M Additional Staff: Height: 162.56 cm Admit Date: Weight: 90.72 kg Admission Status: Outpatient BSA / BMI: 1.96 m2 / 34.33 Department Location: [facility] kg/m2 Echo Lab Blood Pressure: 128 /73 mmHg Study Type: TRANSTHORACIC ECHO (TTE) COMPLETE Diagnosis/ICD: Bradycardia, unspecified-R00.1 Indication: Abnormal EKG, Pre-EP CPT Codes: Echo Complete w Full Doppler-55424 Study Detail: The following Echo studies were [...] LA Area A2C: 18.9 cm2 [place] A4C: 5.8 cm [place] A2C: 5.5 cm LA Volume Index: 27.0 [...] not included)... Batsheva Alexander MD - 08/05/2023 [place] [address] TRANSTHORACIC ECHOCARDIOGRAM REPORT Patient Name: LILIANA MICHAELS Reading Physician: [id number] Batsheva Morris MD, [facility] Study Date: 08/05/2023 Ordering Provider: [id number] ANA M Echo RITA MRN/PID: [id number] Fellow: Nurse: Date of /Age: 10 1965 / 58 [employer] Officer: Eli Pisano RDGRACY Gender: M Additional Staff: Height: 162.56 cm Admit Date: Weight: 90.72 kg Admission Status: Outpatient BSA / BMI: 1.96 m2 / 34.33 Department Location: [place] [address] Echo Lab Blood Pressure: 128 /73 mmHg Study Type: TRANSTHORACIC ECHO (TTE) COMPLETE Diagnosis/ICD: Bradycardia, unspecified-R00.1 Indication: Abnormal EKG, Pre-EP CPT Codes: Echo Complete w Full Doppler-68768 Study Detail: The following Echo studies were [...] LA Area A2C: 18.9 cm2 [place] A4C: 5.8 cm [place] A2C: 5.5 cm LA Volume Index: 27.0 [...] 1.3 m/s (0.6-0.9m/s) PV Max P.6 mmHg [id number] Batsheva Morris MD, [facility] Electronically signed on 08/05/2023 at 2:30:14 PM Final [facility] Work Phone: XR CHEST 1 VIEWon 08-05-2023 XR CHEST 1 VIEW Interpreted By: Salvatore Clark, STUDY: XR CHEST 1 VIEW INDICATION: Signs/Symptoms:post implant. COMPARISON: None ACCESSION NUMBER(S): [id number] ORDERING CLINICIAN: ANA M KUMARI FINDINGS: No consolidation, effusion, edema, or pneumothorax. Pacemaker placed without pneumothorax. Position satisfactory. IMPRESSION: Status post pacemaker placement. Signed by: Salvatore Clark 08/05/2023 6:10 PM Dictation workstation: [id number] [facility] Comment on above: Order Comment: Wet r ead. XR Chest Single viewon 08-04 Status post pacemaker placement. Signed by: Salvatore Clark 08/05/2023 6:10 PM Dictation workstation: [id number] Interpreted By: Salvatore Clark, STUDY: XR CHEST 1 VIEW INDICATION: Signs/Symptoms:post implant. COMPARISON: None ACCESSION NUMBER(S): [id number] ORDERING CLINICIAN: ANA M KUMARI FINDINGS: No consolidation, effusion, edema, or pneumothorax. Pacemaker placed without pneumothorax. Position satisfactory. [facility] MMODAL Salvatore Clark MD - 08/05/2023 Interpreted By: Salvatore Clark, STUDY: XR CHEST 1 VIEW INDICATION: Signs/Symptoms:post implant. COMPARISON: None ACCESSION NUMBER(S): [id number] ORDERING CLINICIAN: ANA M KUMARI FINDINGS: No consolidation, effusion, edema, or pneumothorax. Pacemaker placed without pneumothorax. Position satisfactory. IMPRESSION: Status post pacemaker placement. Signed by: Salvatore Clark 08/05/2023 6:10 PM Dictation workstation: [id number] [facility] Work Phone: Radiology Study observation (narrative) [facility] Work Phone: XR Chest Single viewOrdered By: Salvatore Clark on 08-05-2023 [facility] Work Phone: ECG 12 lead (Clinic Performe d)on 07-22-2023 EKG shows marked sinus bradycardia rate of 41 bpm QRS ration 100 ms QT corrected he had a 91 ms. Rhythm strip shows the same pattern. [facility] Work Phone: CT LUNG CANCER SCREENINGon [...] by: BATSHEVA ALVARADO Date: 2022-07-15 12:10 Normal [facility] Office Visit (Cardiology)on 07-14-2022 [...] we can help. You may also call [phone] for free resources and assistance.; Status:Complete - Retrospective Authorization; Done: [id number] Patient Instructions Please bring all medicines, vitamins, [...] ischemic evaluation. He underwent cardiac catheterization in [place] which showed no significant obstructive disease 3. [...] BY MOUTH FOUR TIMES A DAY NEEDED Bnbuiq8d at bedtime Singulair 10 MG Oral TabletTAKE [...] Recorded: 14Jul2022 10:57AM Heart Rate34, L Radial Qbdegdai672, LUE, Sitting Snppmpmet12, LUE, Sitting Height5 ft 4 in Ahukat025 lb BMI Hyefouknbd41.96 kg/m2 BSA Calculated1.92 Tobacco Usea) Yes Patient encouraged to st (more content not included)... Normal eASIC Tobacco Screening.on 023 Adult depression screening assessment No [facility] [employer] Work Phone: Fall risk assessment a) No falls within the last year [facility] [employer] Work Phone: Tobacco use status CPHS a) Yes M [facility] [employer] Work Phone: Tobacco Screening. Yes [facility] [employer] Work Phone: CT ABD/PELV W CONon [...] by: FLEX JACOBS Date: 2022-06-11 10:06 Normal [facility] CBC AUTO DIFFon 05-07-2022 BASO # 0.1 103/ul Normal 0.0-0.1 [facility] Comment on above: Performed By: #### C BC #### [facility] [address] [place] [address] Dr. Britt Mendoza Basophils/100 WBC (Bld) 1.6 % Normal 0.2-2.0 [facility] Comment on above: Performed By: #### C BC #### [facility] [address] [place], [place] [address] Dr. Britt Mendoza EO # 0.2 103/ul Normal 0.0-0.7 [facility] Comment on above: Performed By: #### C BC #### [facility] [address] [place] [address] [address] Brtit Mendoza Eosinophils/100 WBC (Bld) 3.0 % Normal 0.9-7.0 [facility] Comment on above: Performed By: #### C BC #### [facility] [address] [place] [address] Dr. Britt Mendoza Erythrocyte distribution width (RBC) [Ratio] 12.4 % Normal 11.0-15.0 [facility] Comment on above: Performed By: #### C BC #### [facility] [address] [place] [address] Dr. Britt Mendoza Hematocrit (Bld) [Volume fraction] 43.2 % Normal 42.0-54.0 [facility] Comment on above: Performed By: #### C BC #### [facility] [address] [place] [address] Dr. Britt Mendoza Hemoglobin (Bld) [Mass/Vol] 14.7 g/dL Normal 14.0-18.0 [facility] Comment on above: Performed By: #### C BC #### [facility] [address] [place] [address] Dr. Britt Mendoza IG # 0.11 10e3/ul Critically high 0.00-0.03 [facility] Comment on above: Performed By: #### C BC #### [facility] [address] [place] [address] Dr. Britt Mendoza IG % 1.4 % Critically high 0.0-0.5 [facility] Comment on above: Performed By: #### C BC #### [facility] [address] [place] [address] Dr. Britt Mendoza LYMPH # 1.7 103/ul Normal 1.2-3.8 [facility] Comment on above: Performed By: #### C BC #### [facility] [address] [place] [address] Dr. Britt Mendoza Lymphocytes/100 WBC (Bld) 21.6 % Normal 20.5-60.0 [facility] Comment on above: Performed By: #### C BC #### [facility] [address] [place] [address] Dr. Britt Mendoza MANUAL DIFF REQ NO Normal [facility] Comment on above: Performed By: #### C BC #### [facility] [address] [place] [address] Dr. Britt Mendoza MCH (RBC) [Entitic mass] 31.2 pg Normal 25.9-34.0 [facility] Comment on above: Performed By: #### C BC #### [facility] [address] [place] [address] Dr. Britt Mendoza MCHC (RBC) [Mass/Vol] 34.0 g/dL Normal 29.9-35.2 [facility] Comment on above: Performed By: #### C BC #### [facility] [address] [place] [address] Dr. Britt Mendoza MCV (RBC) [Entitic vol] 91.7 fL Normal 80.0-94.0 [facility] Comment on above: Performed By: #### C BC #### [facility] [address] [place] [address] Dr. Britt Mendoza MONO # 0.5 103/ul Normal 0.3-0.8 [facility] Comment on above: Performed By: #### C BC #### [facility] [address] [place] [address] Dr. Britt Mendoza Monocytes/100 WBC (Bld) 6.8 % Normal 1.7-12.0 [facility] Comment on above: Performed By: #### C BC #### [facility] [address] [place] [address] Dr. Britt Mendoza NEUT # 5.0 103/ul Normal 1.4-6.5 [facility] Comment on above: Performed By: #### C BC #### [facility] [address] [place] [address] Dr. Britt Mendoza Neutrophils/100 WBC (Bld) 65.6 % Normal 43.0-75.0 [facility] Comment on above: Performed By: #### C BC #### [facility] [address] [place] [address] Dr. Britt Mendoza Platelet mean volume (Bld) [Entitic vol] 9.7 fL Normal 9.5-13.5 [facility] Comment on above: Performed By: #### C BC #### [facility] [address] [place] [address] [address] Britt Mendoza PLT 244 103/ul Normal 150-450 [facility] Comment on above: Performed By: #### C BC #### [facility] [address] [address] [address] Britt Mendoza RBC 4.71 106/ul Normal 4.70-6.10 [facility] Comment on above: Performed By: #### C BC #### [facility] [address] [place] [address] Dr. Britt Mendoza WBC 7.6 103/ul Normal 4.0-11.0 [facility] Comment on above: Performed By: #### C BC #### [facility] [address] [place] [address] Dr. Britt Mendoza GLYCOHEMOGLOBIN A1Con 2021 ADA RECOMMENDATION SEE BELOW Normal [facility] Comment on above: Result Comment: ADA RECOMMENDED LIMIT 4.0 - 6.0 ADA THERAPEUTIC TARGET < 7.0 ACTION SUGGESTED > 7.0 Performed By: #### A 1C ####[facility] [facility] [address] [place] [address]Dr. Britt Mendoza Glucose [Mass/Vol] 117 mg/dL Normal [facility] Comment on above: Performed By: #### A 1C ####[facility] [address] [place] [address]Dr. Britt Mendoza HbA1c (Bld) [Mass fraction] 5.7 % Normal 4.5-6.2 [facility] Comment on above: Performed By: #### A 1C ####[facility] [address] [place] [address]Dr. Britt Mendoza LIPID PROFILEon 05-07-2022 CHOL-HDL RATIO NORM SEE BELOW Normal [facility] Comment on above: Result Comment: 3.3 - 4.4 LOW RISK 4.4 - 7.1 AVERAGE RISK 7.1 - 11.0 MODERATE RISK >11.0 HIGH RISK Performed By: #### B MP, LIVER, LIPID, TSH ####[facility] R[address] [place] [address]Dr. Britt Mendoza Cholesterol [Mass/Vol] 235 mg/dL Critically high <=200 [facility] Comment on above: Performed By: #### B MP, LIVER, LIPID, TSH ####[facility] Qrfx[address] [place] [address]Dr. rBitt Mendoza Cholesterol in HDL [Mass/Vol] 40 mg/dL Normal 40-60 [facility] Comment on above: Performed By: #### B MP, LIVER, LIPID, TSH ####[facility] [address] [place] [address]Dr. Britt Mendoza Cholesterol in LDL [Mass/Vol] 156.8 mg/dL Normal [facility] Comment on above: Performed By: #### B MP, LIVER, LIPID, TSH ####[facility] [address] [place] [address]Dr. Britt Mendoza Cholesterol.total/Viola sterol in HDL [Mass ratio] 5.9 {ratio} Normal [facility] Comment on above: Performed By: #### B MP, LIVER, LIPID, TSH ####[facility] [address] [place] [id number]. Anjalilan Mendoza HDL NORMAL > or = 60 mg/dl - LOW CARDIOVASCULAR RISK <40 mg/dl - HIGH CARDIOVASCULAR RISK Normal [facility] Comment on above: Performed By: #### B MP, LIVER, LIPID, TSH ####[facility] [address] [place] [id number]. Anjalilan Mendoza LDL CALC NORMAL SEE BELOW Normal [facility] Comment on above: Result Comment: <100 mg/dl OPTIMAL 100 - 129 mg/dl NEAR OR ABOVE OPTIMAL 130 - 159 mg/dl BORDERLINE HIGH 160 - 189 mg/dl HIGH >190 mg/dl VERY HIGH Performed By: #### B MP, LIVER, LIPID, TSH ####[facility] [address] [place] [address]Dr. Anjalilan Mendoza Triglyceride [Mass/Vol] 191 mg/dL Critically high <=150 [facility] Comment on above: Performed By: #### B MP, LIVER, LIPID, TSH ####[facility] [address] [place] [address]Dr. Britt Mendoza VLDL CALC 38.2 mg/dL Normal [facility] Comment on above: Performed By: #### B MP, LIVER, LIPID, TSH ####[facility] [address] [place] [address]Dr. Britt Mendoza LIVER PROFILEon 05-07-2022 Albumin [Mass/Vol] 3.6 g/dL Normal 3.4-5.0 [facility] Comment on above: Performed By: #### B MP, LIVER, LIPID, TSH ####[facility] [address]xr[address] [place] [address]Dr. Britt Mendoza Albumin/Globulin [Mass ratio] 1.1 {ratio} Normal [facility] Comment on above: Performed By: #### B MP, LIVER, LIPID, TSH ####[facility] [address] [place] [address]Dr. Britt Mendoza ALP [Catalytic activity/Vol] 84 U/L Normal 46-116 [facility] Comment on above: Performed By: #### B MP, LIVER, LIPID, TSH ####[facility] [address] [place] [address]Dr. Britt Mendoza ALT [Catalytic activity/Vol] 34 U/L Normal 16-63 [facility] Comment on above: Performed By: #### B MP, LIVER, LIPID, TSH ####[facility] [address] [place] [address]Dr. Britt Mendoza AST [Catalytic activity/Vol] 21 U/L Normal 15-37 [facility] Comment on above: Performed By: #### B MP, LIVER, LIPID, TSH ####[facility] [address]zt[address] [place] [address]Dr. Britt Mendoza BILI, CONJUGATED 0.1 mg/dL Normal 0.0-0.2 [facility] Comment on above: Performed By: #### B MP, LIVER, LIPID, TSH ####[facility] [address] [place] [id number]. Britt Mendoza Bilirubin [Mass/Vol] 0.4 mg/dL Normal 0.2-1.0 [facility] Comment on above: Performed By: #### B MP, LIVER, LIPID, TSH ####[facility] [address] [place] [address]Dr. Britt Mendoza Globulin (S) [Mass/Vol] 3.4 g/dL Normal [facility] Comment on above: Performed By: #### B MP, LIVER, LIPID, TSH ####[facility] [address] [place] [address]Dr. Britt Mendoza Protein [Mass/Vol] 7.0 g/dL Normal 6.4-8.2 [facility] Comment on above: Performed By: #### B MP, LIVER, LIPID, TSH ####[facility] [address] [place] [address]Dr. Britt Mendoza PROF CHEM 8 (BAS METB)on Anion gap [Moles/Vol] 13.8 mmol/L Normal [facility] Comment on above: Result Comment: Prev iously reported as: -2.3 On 05/07/2022 13:50 By DM9 Performed By: #### B MP, LIVER, LIPID, TSH #### [facility] [address] [place] [address] [address] Britt Mendoza Calcium [Mass/Vol] 9.2 mg/dL Normal 8.5-10.1 [facility] Comment on above: Performed By: #### B MP, LIVER, LIPID, TSH #### [facility] [address] [place] [address] [address] Britt Mendoza Chloride [Moles/Vol] 99 mmol/L Normal 98-107 [facility] Comment on above: Result Comment: Prev iously reported as: 106 On 05/07/2022 13:50 By DM9 Performed By: #### B MP, LIVER, LIPID, TSH #### [facility] [address] [place] [address] [address] Britt Mendoza CO2 [Moles/Vol] 27.3 mmol/L Normal 21.0-32.0 [facility] Comment on above: Result Comment: Prev iously reported as: 29.2 On 05/07/2022 13:50 By DM9 Performed By: #### B MP, LIVER, LIPID, TSH #### [facility] [address] [place] [address] [address] Britt Mendoza Creatinine [Mass/Vol] 1.12 mg/dL Normal 0.70-1.30 [facility] Comment on above: Performed By: #### B MP, LIVER, LIPID, TSH #### [facility] [address] [place] [address] [address] Britt Mendoza EGFR-AF PALESTINIAN >60 Normal >=60 [facility] Comment on above: Performed By: #### B MP, LIVER, LIPID, TSH #### [facility] [address] [place] [address] Dr. Britt Mendoza EGFR-NON AF PALESTINIAN >60 Normal >=60 [facility] Comment on above: Performed By: #### B MP, LIVER, LIPID, TSH #### [facility] [address] [place] [address] [address] Britt Mendoza Glucose [Mass/Vol] 108 mg/dL Critically high 74-106 [facility] Comment on above: Performed By: #### B MP, LIVER, LIPID, TSH #### [facility] [address] [place] [address] Dr. Britt Mendoza Potassium [Moles/Vol] 4.1 mmol/L Normal 3.5-5.1 [facility] Comment on above: Result Comment: Prev iously reported as: 3.9 On 05/07/2022 13:50 By DM9 Performed By: #### B MP, LIVER, LIPID, TSH #### [facility] [address] [place] [address] Dr. Britt Mendoza Sodium [Moles/Vol] 136 mmol/L Normal 136-145 [facility] Comment on above: Result Comment: Prev iously reported as: 129 On 05/07/2022 13:50 By DM9 Performed By: #### B MP, LIVER, LIPID, TSH #### [facility] [address] [place], [place] [address] Dr. Britt Mendoza Urea nitrogen [Mass/Vol] 26.0 mg/dL Critically high 7.0-18.0 [facility] Comment on above: Performed By: #### B MP, LIVER, LIPID, TSH #### [facility] [address] [place], [place] [address] Dr. Britt Mendoza Urea nitrogen/Creatinine [Mass ratio] 23.2 mg/mg Normal [facility] Comment on above: Performed By: #### B MP, LIVER, LIPID, TSH #### [facility] [address] [place], [place] [address] Dr. Britt Mendoza TSHon 05-07-2022 TSH 0.828 uIU/mL Normal 0.358-3.740 [facility] Comment on above: Performed By: #### B MP, LIVER, LIPID, TSH ####[facility] [address] [place], [place] [address]MhDr. Britt Mendoza VITAMIN D 25 OHon 05-07-2022 VIT D 25-OH 45.6 ng/mL Normal [facility] Comment on above: Performed By: #### V BRENDAN PSASC #### [facility] [address] [place] [address] [address] Britt Mendoza VIT D RANGES SEE BELOW Normal [facility] Comment on above: Result Comment: <20 ng/mL Vit D deficient 20 - <30 ng/mL Vit D insufficient 30 - 100 ng/mL Vit D sufficient >100 ng/mL Potential Toxicity Performed By: #### V BRENDAN, PSASC #### [facility] [address] [place] [id number] Britt Mendoza Covid-19 PCR (CVDTB)on SARS-CoV-2 (COVID-19) RNA KATT+probe Ql (Unsp spec) Detected Critically abnormal NOT DETECTED [facility] Comment on above: Result Comment: This test is not yet approved or cleared by the [place] FDA. When there are no FDA-approved or cleared tests available, and other criteria are met, FDA can make tests available under an emergency access mechanism called an Emergency Use Authorization (EUA). The EUA for this test is supported by the [place] of Health and Human Service's declaration that [...] longer be used). Performed By: #### [facility] ####[facility] [place] [id number]. Britt Mendoza Cardiac Stress Test 2021 Cardiac Stress Test [address], [place] [address] Exercise Stress Test Patient Name: LILIANA MICHAELS JRAtiya Ordering Physician: [id number] Ty MD Study Date: 02/15/2022 Reading Physician: [id number] Ty MD MRN/PID: [id number] Supervising Physician: [id number] Rivera MD Accession/Order#: [id number] Referring Physician: VALENTINO TY Date of : 1965 PCP: Ishmael Simon Gender: M Fellow: Height: 162.56 cm Nurse: Yunior Bhatti RN Weight: 81.65 kg [employer] Officer: NA BSA: 1.87 m2 Technologist: BMI: 30.90 kg/m2 Additional Staff: Age: 56 years cc report to: Patient Location: cc report to: [id number] Valentino Ty MD Study Type: Cardiac Stress Test Diagnosis/ICD: R94.31-Abnormal electrocardiogram [ECG] [EKG]; R00.1-Bradycardia, unspecified; R06.00-Dyspnea, unspecified Indication: Dyspnea Procedure/CPT: Stress Test Interpretation-56040 ; Stress Test Supervision-[id number] Falls Risk: Low: Patient has low risk [...] 7. An element of chronotropic incompetency noted. [id number] Valentino Ty MD Electronically signed on 02/16/2022 at 2:52:20 PM Final Normal [facility] Cardiac Stress Test Please click on the link to view the study images [facility] Work Phone: Cardiac Stress Test [facility] HeartSanddayton y 250 DO Work Phone: Office Visit [...] Status:Hold For - Scheduling,Retrospec tive Authorization; Requested for:26Moj9765; Class 1 obesity with body mass index (BMI) of 30.0 to 30.9 in adult Healthy Weight Tips; Status:Complete - Retrospective Authorization; Done: 11Ust7795 Some eating tips that can help you lose weight.; Status:Complete - Retrospective Authorization; Done: 14Ung8780 Sinus bradycardia You need to stop smoking. Though it is not easy, more than half of all adult smokers have quit. We encourage you to write down all the reasons you should quit smoking and set a quit date for yourself. Ask us how we can help. You may also call 6-895-PPJNParentsWareNOW for free resources and assistance.; Status:Complete - Retrospective Authorization; Done: 86Iag6617 SocHx: Current smoker Continue with our present treatment plan.; Status:Complete - Retrospective Authorization; Done: 78Aaq7528 Tobacco Use Screening; Status:Complete; Done: 03Xom4279 Patient Instructions Please bring all medicines, vitamins, [...] This led to a cardiac evaluation in [place] and its not clear to me whether [...] Oral Capsule Delayed ReleaseTAKE 1 CAPSULE Daily Oknbjd7b at bedtime Sin (more content not included)... Normal eASIC Tobacco Screening.on 022 Adult depression screening assessment No [facility] Flazio 600 DO Work Phone: Fall risk assessment a) No falls within the last year [facility] Flazio 600 DO Work Phone: Tobacco use status CPHS a) Yes M [facility] Flazio 600 DO Work Phone: Tobacco Screening. Yes MP-Nor [facility] 600 DO Work Phone: Covid-19 PCR (CVDTB)on SARS-CoV-2 (COVID-19) RNA KATT+probe Ql (Unsp spec) Not detected Normal NOT DETECTED [facility] Comment on above: Result Comment: This test is not yet approved or cleared by the [place] FDA. When there are no FDA-approved or cleared tests available, and other criteria are met, FDA can make tests available under an emergency access mechanism called an Emergency Use Authorization (EUA). The EUA for this test is supported by the [employer] Technician of Health and Human Service's (HHS's) declaration [...] consistent with SARS-CoV-2. Performed By: #### [facility] #### [facility] [address] [place] [address] Dr. rBitt Mendoza Covid-19 PCR (CVDTB)on 11-07 SARS-CoV-2 (COVID-19) RNA KATT+probe Ql (Unsp spec) Not detected Normal NOT DETECTED [facility] Comment on above: Result Comment: This test is not yet approved or cleared by the [place] FDA. When there are no FDA-approved or cleared tests available, and other criteria are met, FDA can make tests available under an emergency access mechanism called an Emergency Use Authorization (EUA). The EUA for this test is supported by the Photon[employer] Technician of Health and Human Service's (HHS's) declaration [...] consistent with SARS-CoV-2. Performed By: #### [facility] ####[facility] [address] [place], [place] [address]ZqAtiya Mendoza XR CHEST 2 Von 10-01-2021 XR [...] by: FLEX JACOBS Date: 2021-10-01 09:30 Normal [facility] Ambulatory Clinical Summaryo n 03-05-2021 Ambulatory Clinical Summary {[id number]}CD:[id number] Normal [facility] Historical Records Officeon 03-05-2021 Historical Records Office [id number] #1.00CD:127 Normal [facility] Patient Educationon 03-05-20 Patient Education Urology Erectile [...] these instructions at home: Medicines ? Take qfor-llm-sgdayxg and prescription medicines only as told by [...] of your (more content not included)... Normal [facility] Urology Office/Clinic Noteon 03-05-2021 Urology Office/Clinic Note [...] order. Ordered: Office Visit Level 4 Est 95254 2. Hypogonadism male (E29.1: Testicular hypofunction) noted [...] time. Ordered: Office Visit Level 4 Est 87640 3. BPH with urinary obstruction (N40.1: Benign prostatic hyperplasia with lower urinary tract symptoms) s/p Urolift September 2018. Pt is currently taking no bladder/prostate medication and is mostly satisfied with overall symptom control. has nocturia but attributes this to diuretics. Pt prefers to continue with no changes at this time. PCP checking PSAs per pt. Ordered: Office Visit Level 4 Est 56394 Orders: Urnls Dip Stick Auto w/o Microscopy POC 82767 offered f/u 1 yr but pt prefers PRN. Total time spent reviewing previous notes/results/rn hemo dialysis al documents, preparing the chart, conducting the encounter with the patient and family, ordering tests/medications, and documenting the encounter was 30 minutes. Follow-up With When Contact Information SIMONE JEAN BAPTISTE DC [address] [place] [address]- Additional Instructions: Patient Education Erectile Dysfunction Problem [...] inhalation powde (more content not included)... Normal [facility] Comment on above: Result Comment: Elec tronically Signed By: DANIEL MARTINEZ, TOMEKA Priest\.br\Date and Time Signed: 03/05/21 12:24 EDT MRI PELVIS WO CONTRASTon MRI PELVIS WO CONTRAST [facility] Department of Radiology [address] [place] [id number] Patient Name: LILIANA MICHAELS : 1965 Sex: M Age: Race: White Pt. Location: 18 Patient Status: Ordered Date: 09/10/2020 3:35:00 PM Completed Date: 10/03/2020 08:34 AM Requesting Provider: SIMONE RUIZ Attending Provider: Report Copy To: Signs & Symptoms: R10.2 Pelvic and perineal pain I10 History: Julian, Right FOREIGN per clinic will fax [facility] auth# [id number] 09/16/20-10/17/20 cpt code 71508 *mla Comments: Right groin to r/o an [...] spine. Electronically signed: Dinh Miller. Transcribed by: [email or web address], User Resident: Electronically Signed by: DINH MILLER @ 10/03/2020 09:57 AM Normal [facility] Comment on above: Order Comment: Right groin to r/o an adductor tear; iliopsoas bursitis or injury Operative Reporton Operative Report MR#: [id number] [facility] Pt. Name: Liliana Michaels Room #: [...] Ruiz MD Date Trans: 09/10/2020 11:40 P/mmo DN_JN:[id number] cc: Ishmael Simon M.D. [address] [place] [address] [place] [address] [facility] Coding Summary.on 09-01-2020 Coding Summary. CD:[id number]:[id number] Gh0bWw+PGhlYWQ+PE1FV QTiP30upSUduR7MY9iRC G6FTCBKGPSQZN5THL2yp BS4ZQoxH0EdhpUh FrcwzPTqSE08ZAz5MOJ0 kUkfCIuycS3gzOAoI9n0 UoYkAH61wW36VXkfSZCi CfY2LwMstqaaiFUc N2lrUnEsrKXaTvj+PHRh YmxlIHdpZHRoPScxMDAl GoZhuUwkDL9pRp2aLUSm LWNvbGxhcHNlOiBj y8qeHCCmSDqbST1heZhw N4YhlQF4PGGqz6v7Gu73 dHI+MSAvPPL9eGgiFOyb l397MhYyg3kmTCL8 bTHsRCrwBDB3J86oi4I4 VXObKUZxZPX5jTN3cO6c dMdvfuslE0DpyFKtDiT9 MLS9rVBgrL8lfVmx bjuwyA9iSby+I62PHX2S RDOEGT1COpe3I3UbGgih dHI+UJ17CURlAN12hODk xADqi6mtnCp1QrRq EIXfZHA5pOhiRTils4Ja WILcB05noONhj9B4AVRo qEngoZShOgObjEU6hA1x TAelicwcd2nswsrk Apfeu9xvws71rW41Z51j ADrsFDZsGWI9BNZtTRDv nZjpvo4flE9nYb2+IDxj u5prs1wfaWn1IrVl GMHedoIfxJofXGJ5z8Or Ir11U6QncOdzz3NaQzu2 nr27aVUmq0S8qVT9YIkk HCWzcT3uUYfdCyX4 WVUzFgHvkK66qXNsYEcp Zk5tgCnrwYxuHN9uBIMc vqkiYGBvgX2rJBNyhJGi nYzgJO6uSRXbozan k716KvEgJAH0UBVyoIUo T7WixC0nFhPzXKJiMGTt N6PimYTySUwqZ826PPrt MhO2NJMxlvYfY9No XDAnpRuvViP5d1N4Jd7X p6XwvnnfMBM5IHvrAMI5 WhJ0PoCoXwD5C7TxQlc4 UMQrwHhhFQ1gD0Wy NNRupjnscrrdkDD7UUYg JUJioH29rNBqUVhjDy7f w8Y3q123MVLdWHVzlW45 Rw4cgZhgOSTvyLJM kZ1xixsur5fvthhwOqOb GVLwBAc2CPe0WDYzlJbf DoIoXFC0TcU3ELH1yAKe iA0twQukntgxgK7r Oyc+A39epW4pIJG9GLG4 kyxgUYPzljSrJH18MU91 W8LvXdvgwQYwsLB+PGRp bcSqoZvnHP1bNgWm m7noo6JnTIznM4RkMYIp SCwlDtm6USIyHLI6bFP1 yO2oAGHaTNojr8S4fIH9 H2UfkeVgtv9ni3bb YPQhABpkG80toXKah1Z4 IQKqpTQ6CRIneFreOkId yH62Jgt+BARsbKtwa6Vf Cwyzv3bau6ufgRc5 IjMwJSIgdmFsaWduPSJ0 g7SjMe91I57gZEeqFBBd XWVjXHJgXSWfqUpdcd2e cS0xWj9+PGNvbCB3 kQQ2wZ4eTAPrTfS7ESea M243UaXkoUFsRarzs3yt q1apoGs8KcXiPPGxxmAy hCsnDPL3c2OfOv09 R46cHXpiOARfKPVaHFUv FPKdnUoewr7lcL7xWa0+ KE7je5vvvp27tP20oTY+ QAGyTNT4nMdiSCfi XQPcrX1oMVhaUoL3LZUl TjIeoW72aPYvGClaQo2c bCeeyLdsFY5dSFOkaahd k806NfAss3rlYJFa gCScIRolGAT9N57jr5V6 IWFiHKPvEIO5lQA8pU0l bGlnbjogbGVmdDsgdmVy fAyjCHfaDNhrZ919 IHRvcDsnPlBhdGllbnQg KqOfXTp7D6LpXil7ATMy kOlhLF1ooFXsQWriWq8u zFkreDccFA6zBMQs mwcyz056EyPes0coWDYq lEYjDMrwELR4Y08ty7C1 GPPhRVKjVXP7rJH8fO6w bGlnbjogbGVmdDsg lmZvoLzfIYmlRFarD099 IHRvcDsnPkJpcnRoIERh sGT7QU81HL19sCLlj9Z7 zFR9Y0EtDNFlqhfh pbnwdDS6FOLgLPDktR60 Is8fyZhfYs3lUOBvGQM6 FTAvcTXbE7YknG6oSbOz VYEfRLSgV1IatZRi ESzxP860JFxjQsG9UUWu bgFxV6NfVXMliYjoBlK9 b9F4Lv8OO7G0RL63BC23 fXDgj5E1kOP5O7Vg HRPwexjqpmgarRB0UBTe JKEagB65Uc2idImiSl7k NDUyEMT1PNQogXQyW6Ow bL5aNqPnLOXqJYOq J3LyrKAqUDtyX166ALqt AyU8DBQtuyPrG6CzVLGr zViwFsM3l9C4Di1LXIp2 KJ30SI54nSFag8X7 dBG9T4ShQESmfhqbagyy eQQ2WRAqXRXcbF58Pa6l wGajKt4tCHNiTTD1LRQd xRPxO6PobM6iOyRn CMTxZLJsB1HkfXJcORmq H399AAysWxM8VCRnxlHs V4ZtXQZvuOapYuL5r2R1 Km9XMCHtYT42JOH8 nJL4YU34SE23Y4KcVyza dGFibGU+PHRhYmxlIHdp ZHRoPScxMDAlJyBzdHls NT2wRs1qYILgWQGq eDosnZWsGrSxh9rxTQPx PCvqTU0fyIgjM0HaqLV3 GNXjy9d0Wz89G74qB3Bh dXA+RDRjvQV5kDI8 lZ4cWkUmPsJ1OTftX934 QqAkcWGaAqisj6zpb8ta nMz8WgS8IIAyfzYbkNul BIX0a1ZzCe29O17t IHdpZHRoPSIxNSUiIHZh zMfokk9ihI9eLg5+PGNv iTA6lHW3cK6xTkNrYoY1 PNlkC661BzYlnXTb Jgpqm2icx3bnyGl9GzPp CVRwhxKppKsmACA5l3Jk Vq08X8XpkAiwa9LqHii8 hn93mYWhx6L2cYG8 L9OjHIZaqpugeZWalSkr DR1gPKGnxqwgIXXstO1m TYOkL2a4McChVvA7DJwi P3RagdX4CVFoeHWl ALmmKIN3F05rv2E7LITy IMDkYGI4aQA6sO5ekRyh bjogbGVmdDsgdmVydGlj TJrqULshW008RNWf vBluUCLguB6uDOUuiZNt wFexYS4xRHBdqyakCpaX JH8PDipuAfEMOGotSLzg dGQ+DYUoTPZ5rTrl RLioBDMotP8oLZNkE5v7 LsEeXcB2WCuuY3CsYGRi zuszOz22aP6nDdErYvC3 KPeaE7OhfpR8ZHTe uVMgADcqPQB4P62qi8T0 RPMpSQJuKYP8aEP6iB2i bGlnbjogbGVmdDsgdmVy lPugINnoYQujA866 OFIxdPiwIhDyXeJ3MtA4 FyE2Y8CdFzv3ZDFdaLwd KN7yaGGzSNyaKv3blJks sMuaVG2eFPFowcgt TAMtcT1yWXVxiUXbbMxp ZQ9qWFPwkxsto626MbIq OVB5NEMwxVDxO0OulQ2g ScRdQEVgSGVhQ7Py xXEfBPytF796CZpkWbN8 FHEchhPcY0SyDZAkjSlf LuX7k0T3Sd59BnFEVMQr czwvdGQ+PHRkIHN0 nBspKYgrPSCdeI1yHLXi R9i2JpEcFaP6HSvuT4Yx ZGYtjelaGr58bX9nWxZf IsI0MZegN3KiilP5 LTPceDBpCRzmCMX9U30w l6B2CZVfCSRuTSX7sQO2 xQ5dpNpsdkzcfUPkqYeg dmVydGljYWwtYWxp W883YPLpdEjaNk9imJJ0 G0MmJmw0LMHmpBznID6g rAReAKryXv7rbAqwhTia LA9xPZTdseftUIKl hS9fEVSllLYlxLsyNF9t VMEifrfpo609QeQbAPX8 UXMdrWFpQ7AzuL4pShEg AXLcOGQsZ6OvwYMw PSfpL561XKkqTjM7PLVd vlMnB8ZyFMKjhJyvTnK6 r9P3Hq5FiNDyV9OrB4y6 I0JqPopspAX+PC90 KULcMA27tCLlyDCuc4gm eBm7FsEcIJCeAIM0yHog IAkml2RsWYOqJ77rfFXd l3J7JUKjaFtveLAz GgAwuEP2fW3dBBvtfklr y6mcholaAzhuw3eknq60 rM94G67lZSqjMCIiPIXr UNLiABPxuWbaxa7f bI9eAh7+AUTqbXR1bHT7 iD8aKxXuEyM5SPbqO396 FcOydDWeUwjnb9hla5gt mOj3FsImRGCnsyBb cBxfARK1k6MxTp16Q20e IHdpZHRoPSIyMCUiIHZh hBqdjt3taM5eKc2+PC9j c5ntsx68oD64qOV+ SVTuGKX2bTblAYxxYVLq lH2tEOwxLoX1WHUbLyJh gO16oHQcDTnpRt5rvDju vBlhLR3oLWMmvtwd h076OgCtz2jgPUQokWTz JMsxMEL8X93mq7F5FPEy NMGbONE0aDE4tL3pzYoq bjogbGVmdDsgdmVy yTvfEWcsCWgnP539WVXc rRjlFeKufJAuY9vhmjPL RE6iLgkisEP+PHRkIHN0 wRadYObvVUHnqL0u JHCbL7x3KzEpStX4JDyu T1IlcbW0CVTydJDoXSZd zPNXgC1vlyovf1lopida DnRuACGgAIy3MVj9 SZXzsTpuWsXfXDG3NfF0 VRL6xHRisM4zpIlnbhpk qY5eBoh+RklOOjwvdGQ+ XHAdQPX4jMqrCXbe PAEnaG1oYGJeN5v0IlPh DrR2PSgbJ5TduoR2OOBr nWMtUTJajWGCrV7krqiq n0shfobuPiCpXZVi HTb0GXh9CGMloRcyUqBq FMY3UvH1VKP3mWHpiK4h jStwgnynhK7vBay+TVJO OjwvdGQ+PHRkIHN0 qFreWVnwUPBsmU0vXMKm J7z9WcPyJgL6JHixK0Lf nqI7CSPupWMhYGMsrZVS gZ2yparkj9exoduo FeWcXIPjOAp1XBf4DWAj gMurOuVbZIR9SxV5WCA8 fQNexA1juXbcgfysxY6b Oyc+SJZ9SVJ9RR78 KF51G0HfKctqeQJcvGI+ PHRhYmxlIHdpZHRoPScx RUWbOzTkpSrqOC9lFi4t ZGVyLWNvbGxhcHNl OiBj (more content not included)... Normal [facility] Auto Diffon 08-24-2020 Basophils/100 WBC (Bld) 1.0 % Normal 0.0-2.0 [facility] Comment on above: Order Comment: Order Added by Discern Expert. Performed By: #### 1 [id number], [id number], [id number], [id number], 7503362, [id number], [id number] ####[facility] [id number] [place] [address] Basophils/Leukocytes Auto (Bld) [Pure # fraction] 0.1 E9/L Normal 0.0-0.2 [facility] Comment on above: Order Comment: Order Added by Discern Expert. Performed By: #### 1 [id number], [id number], [id number], [id number], 5399680, 1590524, [id number], [id number] ####[facility] [address] [place] [address] Eosinophils/100 WBC (Bld) 2.5 % Normal 0.0-8.0 [facility] Comment on above: Order Comment: Order Added by Discern Expert. Performed By: #### 1 [id number], [id number], 5883295, 72030945, 7374425, 2876407, [id number], [id number] ####[facility] [id number] [place] [address] Eosinophils/Leukocytes Auto (Bld) [Pure # fraction] 0.3 E9/L Normal 0.0-0.5 [facility] Comment on above: Order Comment: Order Added by Discern Expert. Performed By: #### 1 [id number], 8596029, 3626058, [id number], 9397815, 1694864, [id number], [id number] ####[address] [place] [address] Lymphocytes/100 WBC (Bld) 21.0 % Normal 14.0-50.0 [facility] Comment on above: Order Comment: Order Added by Discern Expert. Performed By: #### 1 [id number], 7903830, 7328899, 86980239, 2048318, 1204025, [id number], [id number] ####[address] [address] Lymphocytes/Leukocytes Auto (Bld) [Pure # fraction] 2.1 E9/L Normal 1.0-4.0 [facility] Comment on above: Order Comment: Order Added by Crystal Expert. Performed By: #### 1 [id number], 2442106, 8910996, 87510486, 2603332, 6219674, [id number], [id number] ####[address] [address] Monocytes/100 WBC (Bld) 6.2 % Normal 4.0-14.0 [facility] Comment on above: Order Comment: Order Added by Discern Expert. Performed By: #### 1 1227814, 3875588, 7653846, 94962803, 4169991, 9003453, 86069817, 00827209 ####[address] [place] [address] Monocytes/Leukocytes Auto (Bld) [Pure # fraction] 0.6 E9/L Normal 0.2-1.0 [facility] Comment on above: Order Comment: Order Added by Crystal Expert. Performed By: #### 1 8641685, 7823232, 6813482, 43889213, 5384258, 0955033, 25219942, 39008171 ####[address] [place] [address] Neutrophils/100 WBC (Bld) 69.3 % Normal 36.0-75.0 [facility] Comment on above: Order Comment: Order Added by Discern Expert. Performed By: #### 1 0710197, 9092205, 2684725, 58990682, 0754736, 5401961, 89615480, 61646456 ####[facility] [address] [place] [address] Neutrophils/Leukocytes Auto (Bld) [Pure # fraction] 6.9 E9/L Normal 2.0-7.5 [facility] Comment on above: Order Comment: Order Added by Discern Expert. Performed By: #### 1 5359452, 5411592, 8191221, 33352344, 9262171, 0752588, 52974580, 87463755 ####[address] [place] [address] BMP 08-24-2020 Creatinine [Mass/Vol] 1.1 mg/dL Normal 0.5-1.3 [facility] Comment on above: Performed By: #### 1 0968288, 1300885, 7259191, 50463136, 6832313, 7978820, 94905919, 84508156 ####[facility] [address] [place] [address] Urea nitrogen [Mass/Vol] 19 mg/dL Normal 5-21 [facility] Comment on above: Performed By: #### 1 2301697, 4046064, 2019265, 48011322, 3773952, 6980256, 29957335, 45246180 ####[facility] [address] [place] [address] Urea nitrogen/Creatinine [Mass ratio] 17 No Units Normal 10-20 [facility] Comment on above: Performed By: #### 1 9537441, 2294875, 7888197, 07751782, 9349432, 9946434, 55434599, 91871776 ####[facility] [address] [place] [address] Anion gap [Moles/Vol] 14 mmol/L Normal 6-16 [facility] Comment on above: Performed By: #### 1 2481508, 6048497, 0912789, 37760345, 4758758, 3697413, 35574525, 40043035 ####[facility] [address] [place] [address] Calcium [Mass/Vol] 9.4 mg/dL Normal 8.9-11.1 [facility] Comment on above: Performed By: #### 1 8000716, 7867993, 9186888, 01722812, 6994842, 9227578, 08713513, 21545201 ####[facility] [address] [place] [address] Chloride [Moles/Vol] 94 mmol/L Low 101-111 [facility] Comment on above: Performed By: #### 1 9981196, 6424832, 3667952, 16454674, 1822555, 7852340, 13602743, 23319062 ####[facility] [address] [place] [address] CO2 [Moles/Vol] 29 mmol/L Normal 21-31 [facility] Comment on above: Performed By: #### 1 5621709, 8005254, 1551598, 58867894, 9451318, 1558612, 86750809, 23594042 ####[facility] [address] [place] [address] Glucose [Mass/Vol] 103 mg/dL Normal 55-199 [facility] Comment on above: Result Comment: If t his glucose result represents a fasting glucose, interpretation should refer to the following reference range: 55-99 mg/dL Performed By: #### 1 4957625, 0534202, 3480684, 27627311, 5793220, 7150910, 68451832, 99403667 ####[facility] [address] [place] [address] Potassium [Moles/Vol] 4.0 mmol/L Normal 3.5-5.3 [facility] Comment on above: Performed By: #### 1 1059423, 0384418, 5324655, 85066681, 3547507, 2673263, 49809367, 78121879 ####[facility] [address] [place] [address] Sodium [Moles/Vol] 133 mmol/L Low 135-145 [facility] Comment on above: Performed By: #### 1 2909911, 7607007, 9323995, 44382994, 6625538, 0491732, 44341159, 57807193 ####[facility] [address] [place] [address] BNPon 08-24-2020 Natriuretic peptide B (Bld) [Mass/Vol] 17 pg/mL Normal 5-80 [facility] Comment on above: Performed By: #### 1 0206920, 6073185, 1481154, 30419174, 5138529, 1084065, 15594959, 96260218 ####[facility] [address] [place] [address] CBC w/ Auto Diffon Erythrocyte distribution width (RBC) [Ratio] 12.9 % Normal 10.9-14.2 [facility] Comment on above: Performed By: #### 1 5044306, 7352050, 0609023, 83424479, 1963536, 9838515, 70670295, 11600771 ####[facility] [address] [place] [address] Hematocrit (Bld) [Volume fraction] 44.4 % Normal 37.7-49.0 [facility] Comment on above: Performed By: #### 1 7308308, 8069372, 9824233, 79075266, 5942025, 3412289, 75314000, 86796987 ####[facility] [address] [place] [address] Hemoglobin (Bld) [Mass/Vol] 15.3 g/dL Normal 13.5-17.5 [facility] Comment on above: Performed By: #### 1 8005057, 7845610, 1901188, 59069106, 5741963, 6029843, 58259583, 07594395 ####[address] [place] [address] MCH (RBC) [Entitic mass] 31.5 pg Normal 27.0-34.0 [facility] Comment on above: Performed By: #### 1 8338872, 7668625, 2320694, 98317543, 7852382, 2971997, 08030517, 36153777 ####[address] [address] MCHC (RBC) [Mass/Vol] 34.4 g/dL Normal 31.4-36.0 [facility] Comment on above: Performed By: #### 1 2841132, 4630597, 8357583, 68195756, 2904340, 7001467, 48453671, 53904389 ####[address] [address] MCV (RBC) [Entitic vol] 91.6 fL Normal 80.0-100.0 [facility] Comment on above: Performed By: #### 1 0059624, 8642615, 9737825, 01809384, 2546858, 6390440, 38636007, 53776737 ####[address] [address] Platelet mean volume (Bld) [Entitic vol] 8.4 fL Normal 6.4-10.8 [facility] Comment on above: Performed By: #### 1 9163469, 4327429, 9919277, 22983862, 6962957, 4726081, 42167650, 47770170 ####[address] [address] Platelets (Bld) [#/Vol] 289.0 E9/L Normal 150.0-500.0 [facility] Comment on above: Performed By: #### 1 8420334, 7722346, 9771536, 75684590, 8728252, 1118519, 79058651, 10718018 ####[facility] [address] [place] [address] RBC (Bld) [#/Vol] 4.8 E12/L Normal 4.3-5.9 [facility] Comment on above: Performed By: #### 1 9930523, 2456243, 9077565, 41340979, 7325946, 3492572, 74345251, 01471774 ####[facility] [address] [place] [address] WBC corrected for nucl RBC Auto (Bld) [#/Vol] 9.9 E9/L Normal 4.0-11.0 [facility] Comment on above: Performed By: #### 1 7078775, 7430303, 7800112, 21271678, 9378034, 7271223, 87947987, 52095632 ####[facility] [address] [place] [address] CTA Cheston 08-24-2020 CTA Chest Exam Date/Time: [...] 370 Contrast amount in ml's: 78 Normal [facility] Consent for Treatmenton 08-07 Consent for Treatment [id number] #1.00CD:127 Normal [facility] D-Dimeron 08-24-2020 Fibrin D-dimer FEU (PPP) [Mass/Vol] 845 ng/mL Abnormal 215-500 [facility] Comment on above: Result Comment: Resu lts [...] infections Liver cirrhosis Performed By: #### 1 8488568, 9834155, 3666127, 41407967, 8216860, 0641425, 97294073, 76899693 ####[facility] [address] [place] [address] Discharge Instructionson Discharge Instructions [id number] #1.00CD:127 Normal [facility] ED Clinical Summaryon 2020 ED Clinical Summary [id number] ED Clinical Summary Person Information Name: LILIANA MICHAELS/[facility] Age: 55 Years : 1965 Sex: Male Language: Kiswahili PCP: SIMONE JEAN BAPTISTE DC Marital Status: Single Phone: [phone] Visit Id: Visit Reason: Rib/trunk pain-swelling; SIDE [...] 08/24/2020 03:27:58 08/24/2020 03:27:58 08/24/2020 03:27:58 ADDRESS: [address] [place] [id number] [facility] DOC NOTES: MEDICAL INFORMATION: Prescriptions Given: New Medications [id number], [address], [place] [id number], [phone] azithromycin (Zithromax TRI-AMIRA 500 mg oral tablet) [...] With: Address: When: SIMONE JEAN BAPTISTE [address] [place] [address] Business (1) In 1 day 08/25/2020 Comments: Patient is advised to follow-up with his primary care physician in 1 to 2 days. He is also advised to come back to the emergency department if symptoms get worse. DIAGNOSIS: 1:Rib pain on left side Normal [facility] ED Note-Physicianon 08-25-19 ED Note-Physician Basic Information [...] date 08/24/20 2:30:00 EDT Rapid COVID Antigen ([facility]) Orders: albuterol-ipratropiu m, 3 mL, Soln-Inh, Inhalation, Once, Stop date 08/24/20 0:16:00 EDT, STAT, Start date 08/24/20 0:16:00 EDT azithromycin, 500 mg = 1 tab(s), Oral, Daily, # 3 tab(s), Refills(s) 0, Pharmacy: [facility] #[id number], 163, cm, 08/24/20 0:04:00 EDT, Height/Length Dosing, 101, kg, 08/24/20 0:04:00 EDT, Weight Dosing famotidine, 20 mg = 1 tab(s), Tab, Oral, Once, Stop date 08/24/20 0:17:00 EDT, STAT, Start date 08/24/20 0:17:00 EDT lidocaine topical, 1 patch(es), Topical, Daily, 7 patch(es), Refill(s) 0, apply 12 hours on and 12 hours off daily, [facility]/pharmacy #[id number], 163, cm, 08/24/20 0:04:00 EDT, Height/Length Dosing, 101, kg, 08/24/20 0:04:00 EDT, Julian (more content not included)... Normal [facility] Comment on above: Result Comment: Elec tronically [...] 04/30/2014 Document Reviewed: 11/28/2008 ExitCare? Patient Information ?2014 [employer]. This information is not intended to replace advice given to you by your health care provider. Make sure you discuss any questions you have with your health care provider. Normal [facility] ED Patient Summaryon 021 ED Patient Summary [address] [address] Patient Discharge Instructions Person Information Name: LILIANA MICHAELS Age: 55 Years Arrival Date: 08/23/2020 23:48:11 Discharge Diagnosis: 1:Rib pain on left side Primary Care Physician: SIMONE JEAN BAPTISTE DC Provider Information Primary Provider: Pia LANE, David Advanced Insole Bottom Filler:None The exam and treatment you received in the Emergency Department were for an urgent problem and are not intended as complete care. It is important that you follow up with a doctor, nurse practitioner, or physician?s assistant buyer for ongoing care. If your symptoms become [...] With: Address: When: SIMONE JEAN BAPTISTE [address] [place] [address] Business (1) In 1 day 08/25/2020 Comments: [...] opioids can be used to help relieve rwzoixsm-kz-cfhcvh pain and are often prescribed following a [...] be struggling (more content not included)... Normal [facility] PT & PTTon 08-24-2020 aPTT Coag (PPP) [Time] 30.2 second(s) Normal 25.1-36.5 [facility] Comment on above: Result Comment: Hepa rin therapeutic range (represented by Anti-Factor Xa activity of 0.2 - 0.4 U/mL) corresponds to PTT of 56.6 - 109.0 sec. Performed By: #### 1 4398922, 3377288, 3117737, 44245315, 0490525, 4077081, 69192821, 43874588 ####[facility] [address] [place] [address] INR Coag (PPP) [Relative time] 1.0 {INR} Invalid Interpretation Code [facility] Comment on above: Result Comment: INR results are specifically intended to assess patients stabilized on long-term Anticoagulation therapy suggested INR?s ?Less Intensive Anticoagulation? 2.0 ? 3.0 Conventional Range 3.0 ? 4.5 Performed By: #### 1 5080185, 3293755, 2477845, 20277842, 8723977, 4558679, 08545006, 01517706 ####[facility] [address] [place] [address] PT Coag (PPP) [Time] 11.6 second(s) Normal 10.2-12.9 [facility] Comment on above: Performed By: #### 1 6798008, 9116413, 2458923, 93481216, 7511388, 0571793, 79585059, 41354905 ####[facility] [address] [place] [address] RAD - Preliminary Cat Scan R eporton 08-24-2020 RAD - Preliminary Cat Scan Report [id number] #1.00CD:127 Normal [facility] Rapid COVID Antigen ([facility])on 08-24-2020 Rapid COV Int NEG Ctl Pass Normal [facility] Comment on above: Performed By: #### 2 [id number] ####[facility] [address] [place] [address] Rapid COV Int POS Ctl Pass Normal [facility] Comment on above: Performed By: #### 2 065748255 ####[facility] [address] [place] [address] SARS-CoV-2 (COVID-19) RNA KATT+probe Ql (Unsp spec) Not detected Normal Not Detected [facility] Comment on above: Result Comment: The Sojeans? System for Rapid Detection of SARS-CoV-2 is [...] For in vitro diagnostic use. In the [facility], only for use under an Emergency Use [...] or revoked sooner. Performed By: #### 2 [id number] ####[address] [address] Employed in Healthcare NO Normal [facility] Comment on above: Performed By: #### 2 [id number] ####[address] [place] [address] First Test Unknown Normal [facility] Comment on above: Performed By: #### 2 [id number] ####[address] [place] [address] Hospitalized? NO Normal [facility] Comment on above: Performed By: #### 2 [id number] ####[address] [place] [address] ICU NO Normal [facility] Comment on above: Performed By: #### 2 [id number] ####[address] [place] [address] ? NO Normal [facility] Comment on above: Performed By: #### 2 117499948 ####[address] [place] [address] Resides in a Congregate Care Setting NO Normal [facility] Comment on above: Performed By: #### 2 [id number] ####[address] [place] [address] Symptomatic as defined by CDC YES Normal [facility] Comment on above: Performed By: #### 2 [id number] ####[address] [address] Troponin 0 Hr.on 08-24-2020 Troponin I.cardiac [Mass/Vol] 4.10 pg/mL Low 15.90-38.40 [facility] Comment on above: Result Comment: The 95% CI (Confidence Interval) PPV (Positive Predictive Value) for myocardial infarction in females is 38 pg/mL, in males 51 pg/mL. The results should be used in conjunction with clinical conditions of myocardial infarction. ([employer] High Sensitivity Troponin I Instructions For Use, [employer], December 2017) Performed By: #### 1 1354030, 0613745, 3768199, 59325048, 5055588, 6629630, 21882011, 81133716 ####[facility] [address] [place] [address] Troponin 3 Hr.on 08-24-2020 Troponin I.cardiac [Mass/Vol] 4.40 pg/mL Low 15.90-38.40 [facility] Comment on above: Result Comment: The 95% CI (Confidence Interval) PPV (Positive Predictive Value) for myocardial infarction in females is 38 pg/mL, in males 51 pg/mL. The results should be used in conjunction with clinical conditions of myocardial infarction. ([employer] High Sensitivity Troponin I Instructions For Use, [employer], December 2017) Performed By: #### 1 [id number] ####[facility] [address] [place] [address] XR Chest Single Viewon 08-24 XR Chest [...] Signature): 08/24/2020 8:19 am Signed by: Tomer Resi MD, V. Transcribed by: VIVIAN Technologist: DAT Normal [facility] eGFRon 08-24-2020 GFR/1.73 sq M.predicted among blacks MDRD (S/P/Bld) [Vol rate/Area] mL/min/{1.73_m2} Normal >=59 [facility] Comment on above: Order Comment: Order added by Discern Expert. Result Comment: eGFR is race adjusted. AA=. Performed By: #### 1 7691193, 3931539, 9434377, 29025331, 2346491, 5086002, 74634396, 95174196 ####[facility] [address] [place] [address] GFR/1.73 sq M.predicted among non-blacks MDRD (S/P/Bld) [Vol rate/Area] mL/min/{1.73_m2} Normal >=59 [facility] Comment on above: Order Comment: Order added by Discern Expert. Result Comment: Railroad Engineer jeniffer kidney disease could be indicated at eGFR's of less than 60 mL/min/1.73m2. Kidney failure is indicated at less than 15 mL/min/1.73m2. Performed By: #### 1 8740828, 8963907, 7186467, 89417994, 0038401, 5140645, 47263402, 76696262 ####[facility] [address] [place] [address] HIP RIGHT 1 OR 2 VWS WITH PE LVISon 07-24-2020 HIP RIGHT 1 OR 2 VWS WITH PELVIS [facility] Department of Radiology [address] [place] [id number] Patient Name: LILIANA MICHAELS : 1965 [...] Electronically signed: Ana M Mariee. Transcribed by: [email or web address], User Resident: Electronically Signed by: ANA M MARIEE @ 07/24/2020 10:01 AM Normal [facility] Comment on above: Order Comment: Views (X-RAY, HIP): Radiologic Protocol HIP RIGHT 1 OR 2 VWS WITH PE LVISon 04-24-2020 HIP RIGHT 1 OR 2 VWS WITH PELVIS [facility] Department of Radiology [address] [place] [phone] Patient Name: LILIANA MICHAELS : 1965 [...] abnormality. Electronically signed: Ed España. Transcribed by: [email or web address], User Resident: Electronically Signed by: ED ESPAÑA @ 04/25/2020 08:22 AM Normal [facility] Comment on above: Order Comment: Views (X-RAY, HIP): Radiologic Protocol Operative Reporton 0 Operative Report MR#: [id number] [facility] Pt. Name: Liliana Michaels Room #: 6AB [id number] Discharge 03/15/2020 Date: Birthdate: 1965 OPERATIVE REPORT [...] not included)... Normal [facility] BASIC METABOLIC PANELon 11-0 -2019 Calcium [Mass/Vol] 8.8 mg/dL Normal 8.6-10.[address] [facility] Comment on above: Order Comment: Views (X-RAY, HIP): Radiologic Protocol Performed By: #### 0 0071 ####[facility] [place] [address], [facility] Chloride [Moles/Vol] 98 mmol/L Normal 98-[address] [facility] Comment on above: Order Comment: Views (X-RAY, HIP): Radiologic Protocol Performed By: #### 0 0071 ####[facility] [place] [address], [facility] CO2 [Moles/Vol] 30 mmol/L Normal 21-[address] [facility] Comment on above: Order Comment: Views (X-RAY, HIP): Radiologic Protocol Performed By: #### 0 0071 ####[facility] [place] [address], [facility] Creatinine [Mass/Vol] 0.96 mg/dL Normal 0.70-1.[address] [facility] Comment on above: Order Comment: Views (X-RAY, HIP): Radiologic Protocol Performed By: #### 0 0071 ####[facility] [place] [address], [facility] GFR/1.73 sq M.predicted among blacks MDRD (S/P/Bld) [Vol rate/Area] mL/min/{1.73_m2} Normal >[address] [facility] Comment on above: Order Comment: Views (X-RAY, HIP): Radiologic Protocol Performed By: #### 0 0071 ####[facility] [facility] [place] [address], [facility] GFR/1.73 sq M.predicted among non-blacks MDRD (S/P/Bld) [Vol rate/Area] mL/min/{1.73_m2} Normal >[address] [facility] Comment on above: Order Comment: Views (X-RAY, HIP): Radiologic Protocol Performed By: #### 0 0071 ####[facility] [place] [address], [facility] Glucose [Mass/Vol] 151 mg/dL High 70-[address] [facility] Comment on above: Order Comment: Views (X-RAY, HIP): Radiologic Protocol Performed By: #### 0 0071 ####[facility] [place] [address], [place] Potassium [Moles/Vol] 4.4 mmol/L Normal 3.5-5.[address] [facility] Comment on above: Order Comment: Views (X-RAY, HIP): Radiologic Protocol Performed By: #### 0 0071 ####[facility] [place] [address], [place] Sodium [Moles/Vol] 133 mmol/L Low 136-[address] [facility] Comment on above: Order Comment: Views (X-RAY, HIP): Radiologic Protocol Performed By: #### 0 0071 ####[facility] [place] [address], [facility] Urea nitrogen [Mass/Vol] 20 mg/dL Normal 7-[address] [facility] Comment on above: Order Comment: Views (X-RAY, HIP): Radiologic Protocol Performed By: #### 0 0071 ####[facility] [place] [address], [facility] CBC COMPLETE BLOOD COUNTon 05-15-2019 Erythrocyte distribution width (RBC) [Ratio] 12.2 % Normal 11.5-15.[address] [facility] Comment on above: Order Comment: No: D o not add to previous draw Performed By: #### 5 0608 #### [facility] [address] [place] [id number], [facility] Hematocrit (Bld) [Volume fraction] 42.2 % Normal 39.0-50.[address] [facility] Comment on above: Order Comment: No: D o not add to previous draw Performed By: #### 5 0608 #### [facility] [address] [place] [address], [facility] Hemoglobin (Bld) [Mass/Vol] 13.9 g/dL Normal 13.0-17.[address] [facility] Comment on above: Order Comment: No: D o not add to previous draw Performed By: #### 5 0608 #### [facility] [address] [place] [address], [place] MCH (RBC) [Entitic mass] 31.4 pg Normal 27.0-33.[address] [facility] Comment on above: Order Comment: No: D o not add to previous draw Performed By: #### 5 0608 #### [facility] [address] [place] [address] [place] [address] MCHC (RBC) [Mass/Vol] 32.9 g/dL Normal 32.0-35.[address] [facility] Comment on above: Order Comment: No: D o not add to previous draw Performed By: #### 5 0608 #### [facility] [address] [place] [address], [facility] MCV (RBC) [Entitic vol] 95.5 fL Normal 82.0-98.[address] [facility] Comment on above: Order Comment: No: D o not add to previous draw Performed By: #### 5 0608 #### [facility] [address] [place] [address], [facility] Nucleated RBC/100 WBC (Bld) [Ratio] 0 % Normal 0-[address] [facility] Comment on above: Order Comment: No: D o not add to previous draw Performed By: #### 5 0608 #### [facility] [address] [place] [address], [facility] PLAT CNT 254 10*3/uL Normal 150-[address] [facility] Comment on above: Order Comment: No: D o not add to previous draw Performed By: #### 5 0608 #### [facility] [address] [facility] [place] [address], [facility] RBC (Bld) [#/Vol] 4.42 10*6/uL Normal 4.20-5.[address] [facility] Comment on above: Order Comment: No: D o not add to previous draw Performed By: #### 5 0608 #### [facility] [address] [facility] [place] [id number], [facility] WBC (Bld) [#/Vol] 14.44 10*3/uL High 4.00-10.[address] [facility] Comment on above: Order Comment: No: D o not add to previous draw Performed By: #### 5 0608 #### [facility] [address] [place] [address], [facility] POC GLUCOSE LABon 03-15-2020 Glucose [Mass/Vol] 193 mg/dL High 70-[address] [facility] Comment on above: Performed By: #### 8 5499 #### [facility] [address] CBC W/DIFFon 03-14-2020 ABS IMM GRANS 0.2 10*3/uL Normal 0.0-0.[address] [facility] Comment on above: Performed By: #### 5 0103 ####[facility] ABS NEUTROPHILS 8.0 10*3/uL High 1.6-7.[address] [facility] Comment on above: Performed By: #### 5 0103 ####[facility] Basophils (Bld) [#/Vol] 0.1 10*3/uL Normal 0.0-0.[address] [facility] Comment on above: Performed By: #### 5 0103 ####[facility] [place] [address], [facility] Basophils/100 WBC (Bld) 1.1 % High 0.0-1.[address] [facility] Comment on above: Performed By: #### 5 0103 ####[facility] [facility] [place] [address], [facility] Eosinophils (Bld) [#/Vol] 0.3 10*3/uL Normal 0.0-0.[address] [facility] Comment on above: Performed By: #### 5 0103 ####[facility] [place] [address], [facility] Eosinophils/100 WBC (Bld) 2.7 % Normal 0.0-6.[address] [facility] Comment on above: Performed By: #### 5 0103 ####[facility] [place] [address], [place] Erythrocyte distribution width (RBC) [Ratio] 12.3 % Normal 11.5-15.[address] [facility] Comment on above: Performed By: #### 5 0103 ####[facility] Hematocrit (Bld) [Volume fraction] 50.5 % High 39.0-50.[address] [facility] Comment on above: Performed By: #### 5 0103 ####[facility] Hemoglobin (Bld) [Mass/Vol] 17.3 g/dL High 13.0-17.[address] [facility] Comment on above: Performed By: #### 5 3 ####[address] IMMATURE GRANS 1.4 % High 0.0-1.[address] [facility] Comment on above: Performed By: #### 5 3 ####[place] [id number] [address] Lymphocytes (Bld) [#/Vol] 1.8 10*3/uL Normal 1.2-4.[address] [facility] Comment on above: Performed By: #### 5 3 ####[place] [address] [address] Lymphocytes/100 WBC (Bld) 15.6 % Low 20.0-45.[address] [facility] Comment on above: Performed By: #### 5 3 ####[place] [address] [address] MCH (RBC) [Entitic mass] 31.7 pg Normal 27.0-33.[address] [facility] Comment on above: Performed By: #### 5 3 ####[facility] [place] [address], [facility] MCHC (RBC) [Mass/Vol] 34.3 g/dL Normal 32.0-35.[address] [facility] Comment on above: Performed By: #### 5 0103 ####[facility] [place] [address], [facility] MCV (RBC) [Entitic vol] 92.7 fL Normal 82.0-98.[address] [facility] Comment on above: Performed By: #### 5 0103 ####[facility] [place] [address], [facility] Monocytes (Bld) [#/Vol] 0.9 10*3/uL Normal 0.1-1.[address] [facility] Comment on above: Performed By: #### 5 0103 ####[facility] [facility] MONOS 8.2 % Normal 5.0-12.[address] [facility] Comment on above: Performed By: #### 5 0103 ####[facility] [facility] Neutrophils/100 WBC (Bld) 71.0 % Normal 40.0-72.[address] [facility] Comment on above: Performed By: #### 5 3 ####[facility] [facility].[address] Nucleated RBC/100 WBC (Bld) [Ratio] 0 % Normal 0-[address] [facility] Comment on above: Performed By: #### 5 0103 ####[facility] [place] [address], [facility] PLAT CNT 301 10*3/uL Normal 150-[address] [facility] Comment on above: Performed By: #### 5 0103 ####[facility] [place] [address], [facility] RBC (Bld) [#/Vol] 5.45 10*6/uL Normal 4.20-5.[address] [facility] Comment on above: Performed By: #### 5 0103 ####[facility] WBC (Bld) [#/Vol] 11.22 10*3/uL High 4.00-10.[address] [facility] Comment on above: Performed By: #### 5 0103 ####[facility] HIP RIGHT 1 OR 2 VWS WITH PE LVISon 03-14-2020 HIP RIGHT 1 OR 2 VWS WITH PELVIS [facility] Department of Radiology [address] [place] [id number] Patient Name: LILIANA MICHAELS : 1965 [...] purposes Electronically signed: Aria Steinberg. Transcribed by: [email or web address], User Resident: Electronically Signed by: ARIA STEINBERG @ 03/14/2020 03:44 PM Normal [facility] Comment on above: Order Comment: RT TH A POC GLUCOSE LABon 03-14-2020 Glucose [Mass/Vol] 222 mg/dL High 70-[address] [facility] Comment on above: Performed By: #### 8 5499 #### [facility] [address] [place] [address], [facility] Glucose [Mass/Vol] 217 mg/dL High 70-[address] [facility] Comment on above: Performed By: #### 8 5499 ####[facility] [facility] [place] [address], [facility] Glucose [Mass/Vol] 141 mg/dL High 70-[address] [facility] Comment on above: Performed By: #### 8 5499 #### [facility] [address] [place] [address], [facility] PORTABLE HIP RIGHT 1 OR 2 VW S WITH PELVISon 03-14-2020 PORTABLE HIP RIGHT 1 OR 2 VWS WITH PELVIS [facility] Department of Radiology [address] [place] [address] Patient Name: LILIANA MICHAELS : [...] air Electronically signed: Aria Steinberg. Transcribed by: [email or web address], User Resident: Electronically Signed by: ARIA STEINBERG @ 03/14/2020 03:46 PM Normal [facility] Comment on above: Order Comment: Hardw are Evaluation, AP/Lateral TYPE AND SCREENon 03-14-2020 ABO INTERPRETATION O Normal [facility] Comment on above: Performed By: #### 6 2586 ####[facility] [place] [address], [place] RH INTERPRETATION Positive Normal [facility] Comment on above: Performed By: #### 6 2586 ####[facility] [place] [address], [place] Vital Signs Date Time Vital Sign Value Performing Clinician Facility 05-23-2024 08:30-0500 Body height 162.6 cm Amador Son MD Work Phone: [facility] 05-23-2024 08:30-0500 Body mass index (BMI) [Ratio] 37.76 kg/m2 Amador Son MD Work Phone: [facility] 05-23-2024 08:30-0500 Body weight 99.79 kg Amador Son MD Work Phone: [facility] 05-23-2024 08:30-0500 Diastolic blood pressure 78 mm[Hg] Amador Son MD Work Phone: [facility] 05-23-2024 08:30-0500 Heart rate 74 /min Amador Son MD Work Phone: [facility] 05-23-2024 08:30-0500 Systolic blood pressure 118 mm[Hg] Amador Son MD Work Phone: [facility] 04-24-2024 11:05-0500 Body height 162.6 cm Ishmael Simon MD Work Phone: [facility] 04-24-2024 11:05-0500 Body mass index (BMI) [Ratio] 37.76 kg/m2 Ishmael Simon MD Work Phone: [facility] 04-24-2024 11:05-0500 Body temperature 97.81 [degF] Ishmael Simon MD Work Phone: [facility] 04-24-2024 11:05-0500 Body weight 99.79 kg Ishmael Simon MD Work Phone: [facility] 04-24-2024 11:05-0500 Diastolic blood pressure 68 mm[Hg] Ishmael Simon MD Work Phone: [facility] 04-24-2024 11:05-0500 Heart rate 88 /min Ishmael Simon MD Work Phone: [facility] 04-24-2024 11:05-0500 Respiratory rate 18 /min Ishmael Simon MD Work Phone: [facility] 04-24-2024 11:05-0500 SaO2% (BldA) [Mass fraction] 95 % Ishmael Simon MD Work Phone: [facility] 04-24-2024 11:05-0500 Systolic blood pressure 116 mm[Hg] Ishmael Simon MD Work Phone: [facility] 02-06-2024 13:14-0400 Body height 162.6 cm Ishmael Simon MD Work Phone: [facility] 02-06-2024 13:14-0400 Body mass index (BMI) [Ratio] 37.25 kg/m2 Ishmael Simon MD Work Phone: [facility] 02-06-2024 13:14-0400 Body temperature 97.5 [degF] Ishmael Simon MD Work Phone: [facility] 02-06-2024 13:14-0400 Body weight 98.43 kg Ishmael Simon MD Work Phone: [facility] 02-06-2024 13:14-0400 Diastolic blood pressure 72 mm[Hg] Ishmael Simon MD Work Phone: [facility] 02-06-2024 13:14-0400 Heart rate 84 /min Ishmael Simon MD Work Phone: [facility] 02-06-2024 13:14-0400 Respiratory rate 20 /min Ishmael Simon MD Work Phone: [facility] 02-06-2024 13:14-0400 SaO2% (BldA) [Mass fraction] 97 % Ishmael Simon MD Work Phone: [facility] 02-06-2024 13:14-0400 Systolic blood pressure 134 mm[Hg] Ishmael Simon MD Work Phone: [facility] 01-13-2024 09:29-0400 Body height 162.6 cm Ishmael Simon MD Work Phone: [facility] 01-13-2024 09:29-0400 Body mass index (BMI) [Ratio] 36.39 kg/m2 Ishmael Simon MD Work Phone: [facility] 01-13-2024 09:29-0400 Body temperature 97.5 [degF] Ishmael Simon MD Work Phone: [facility] 01-13-2024 09:29-0400 Body weight 96.16 kg Ishmael Simon MD Work Phone: [facility] 01-13-2024 09:29-0400 Diastolic blood pressure 70 mm[Hg] Ishmael Simon MD Work Phone: [facility] 01-13-2024 09:29-0400 Heart rate 91 /min Ishmael Simon MD Work Phone: [facility] 01-13-2024 09:29-0400 Respiratory rate 18 /min Ishmael Simon MD Work Phone: [facility] 01-13-2024 09:29-0400 SaO2% (BldA) [Mass fraction] 97 % Ishmael Simon MD Work Phone: [facility] 01-13-2024 09:29-0400 Systolic blood pressure 120 mm[Hg] Ishmael Simon MD Work Phone: [facility] 11-09-2023 10:10-0400 Body height 162.6 cm Naima Wright [employer]ILE DEVELOPER[employer] RE[employer]DER Work Phone: [facility] 11-09-2023 10:10-0400 Body mass index (BMI) [Ratio] 35.27 kg/m2 Naima Wright AGILE DEVELOPER[employer] REBUILDER Work Phone: [facility] 11-09-2023 10:10-0400 Body weight 93.21 kg Naima Wright AGILE DEVELOPER[employer]TU[employer] REBUILDER Work Phone: [facility] 11-09-2023 10:10-0400 Diastolic blood pressure 66 mm[Hg] Naima Wright AGILE DEVELOPER-TUBE REBUILDER Work Phone: [facility] 11-09-2023 10:10-0400 Heart rate 68 /min Naima Wright AGILE DEVELOPER[employer]TUBE REBUILDER Work Phone: [facility] 11-09-2023 10:10-0400 Systolic blood pressure 98 mm[Hg] Naima Wright AGILE DEVELOPER[employer]TUBE REBUILDER Work Phone: [facility] 08-10-2023 13:31-0400 Body height 162.6 cm Amador Son MD Work Phone: [facility] 08-10-2023 13:31-0400 Body mass index (BMI) [Ratio] 34.67 kg/m2 Amador Son MD Work Phone: [facility] 08-10-2023 13:31-0400 Body weight 91.63 kg Amador Son MD Work Phone: [facility] 08-10-2023 13:31-0400 Diastolic blood pressure 70 mm[Hg] Amador Son MD Work Phone: [facility] 08-10-2023 13:31-0400 Heart rate 69 /min Amador Son MD Work Phone: [facility] 08-10-2023 13:31-0400 Systolic blood pressure 116 mm[Hg] Amador Son MD Work Phone: [facility] 08-05-2023 17:30-0400 Diastolic blood pressure 67 mm[Hg] Amador Son MD Work Phone: [facility] 08-05-2023 17:30-0400 Heart rate 60 /min Amador Son MD Work Phone: [facility] 08-05-2023 17:30-0400 Respiratory rate 16 /min Amador Son MD Work Phone: [facility] 08-05-2023 17:30-0400 SaO2% (BldA) [Mass fraction] 96 % Amador Son MD Work Phone: [facility] 08-05-2023 17:30-0400 Systolic blood pressure 112 mm[Hg] Amador Son MD Work Phone: [facility] 08-05-2023 12:13-0400 Body height 162.6 cm Amador Son MD Work Phone: [facility] 08-05-2023 12:13-0400 Body mass index (BMI) [Ratio] 34.17 kg/m2 Amador Son MD Work Phone: [facility] 08-05-2023 12:13-0400 Body temperature 97.5 [degF] Amador Son MD Work Phone: [facility] 08-05-2023 12:13-0400 Body weight 90.3 kg Amador Son MD Work Phone: [facility] 07-22-2023 14:38-0400 Body height 162.6 cm Amador Son MD Work Phone: [facility] 07-22-2023 14:38-0400 Body mass index (BMI) [Ratio] 34.33 kg/m2 Amador Son MD Work Phone: [facility] 07-22-2023 14:38-0400 Body weight 90.72 kg Amador Son MD Work Phone: [facility] 07-22-2023 14:38-0400 Diastolic blood pressure 90 mm[Hg] Amador Son MD Work Phone: [facility] 07-22-2023 14:38-0400 Heart rate 41 /min Amador Son MD Work Phone: [facility] 07-22-2023 14:38-0400 Systolic blood pressure 138 mm[Hg] Amador Son MD Work Phone: [facility] 07-14-2022 10:57-0500 Body height 162.56 cm Ishmael Simon Work Phone: [facility] 600 DO Work Phone: 07-14-2022 10:57-0500 Body mass index (BMI) [Ratio] 32.96 kg/m2 Ishmael A Naderer Work Phone: [facility] 600 DO Work Phone: 07-14-2022 10:57-0500 Body surface area Derived from formula 1.92 m2 Ishmael A Naderer Work Phone: [facility] 600 DO Work Phone: 07-14-2022 10:57-0500 Body weight 87.09 kg Ishmael A Naderer Work Phone: [facility] 600 DO Work Phone: 07-14-2022 10:57-0500 Diastolic blood pressure 64 mm[Hg] Ishmael A Naderer Work Phone: [facility] 600 DO Work Phone: 07-14-2022 10:57-0500 Heart rate 34 /min Ishmael A Naderer Work Phone: [facility] 600 DO Work Phone: 07-14-2022 10:57-0500 Systolic blood pressure 118 mm[Hg] Ishmael A Naderer Work Phone: [facility] 600 DO Work Phone: 01-28-2022 09:37-0400 Body height 162.56 cm Ishmael A Naderer Work Phone: [facility] 600 DO Work Phone: 01-28-2022 09:37-0400 Body mass index (BMI) [Ratio] 30.9 kg/m2 Ishmael A Naderer Work Phone: [facility] 600 DO Work Phone: 01-28-2022 09:37-0400 Body surface area Derived from formula 1.87 m2 Ishmael A Naderer Work Phone: [facility] 600 DO Work Phone: 01-28-2022 09:37-0400 Body weight 81.65 kg Ishmael Carterr Work Phone: [facility] 600 DO Work Phone: 01-28-2022 09:37-0400 Diastolic blood pressure 50 mm[Hg] Ishmael Rae Raulr Work Phone: [facility] [employer] 600 DO Work Phone: 01-28-2022 09:37-0400 Heart rate 41 /min Ishmael Simon Work Phone: [facility] 600 DO Work Phone: 01-28-2022 09:37-0400 Systolic blood pressure 112 mm[Hg] [facility]ae Alfred [facility] Work Phone: Encounters Encounter Date Encounter Type Care Provider Facility Start: 05-23-2024 End: 05-23-2024 Office outpatient visit 25 minutes Amador Son MD Work Phone: [facility] Comment on above: Cardiac pacemaker in situ (Primary Dx); Sick sinus syndrome (Multi); MRI safe cardiac pacemaker in situ; Abnormal EKG; Chronotropic incompetence; Sinoatrial node dysfunction (Multi); Sinus bradycardia; Current smoker; BMI 37.0-37.9, adult Start: 05-23-2024 End: 05-23-2024 Subsequent hospital visit by physician [facility] 2 [facility] Comment on above: Sinus bradycardia; Sick sinus syndrome (Multi); Chronotropic incompetence; MRI safe cardiac pacemaker in situ Start: 05-23-2024 End: 05-23-2024 ambulatory AMADOR SON [facility] Start: 04-27-2024 End: 04-27-2024 Red Simon MD Work Phone: [facility] Comment on above: Degeneration of lumb ar intervertebral disc Start: 04-24-2024 End: 04-24-2024 Bamboo flowsheet Ishmael Simon MD Work Phone: [facility] Start: 04-24-2024 End: 04-24-2024 Bamboo flowsheet Ishmael Simon MD Work Phone: [facility] Start: 04-24-2024 End: 04-24-2024 Clinisync Result Encounter Ishmael Simon MD Work Phone: [facility] External Department Unsolicited Start: 04-24-2024 End: 04-24-2024 Patient encounter procedure Ishmael Simon MD Work Phone: [facility] Healthcare Work Phone: Start: 04-24-2024 End: 04-24-2024 Postop follow up visit related to original px Ishmael Simon MD Work Phone: [facility] Comment on above: Medicare annual well ness visit, subsequent (Primary Dx); Type 2 diabetes mellitus with hyperglycemia, without long-term current use of insulin ([facility]/HCC); Essential hypertension, benign (CMS/HCC); Class 2 severe obesity due to excess calories with serious comorbidity and body mass index (BMI) of 37.0 to 37.9 in adult (CMS/HCC) Start: 04-24-2024 End: 04-24-2024 ambulatory ISHMAEL SIMON Not Available Start: 04-16-2024 End: 04-16-2024 ambulatory Jong Reyes MD Facility: [facility] Start: 03-30-2024 End: 03-30-2024 Refill Ishmael Simon MD Work Phone: [facility] Comment on above: Degeneration of lumb ar intervertebral disc Start: 03-27-2024 End: 03-27-2024 Patient encounter procedure Ishmael Simon MD Work Phone: [facility] [place] Work Phone: Start: 03-27-2024 End: 03-27-2024 ambulatory Ishmael Simon MD Work Phone: [facility] Work Phone: Start: 03-16-2024 End: 03-16-2024 ambulatory Danielle Bergeron Facility:[facility] Start: 03-16-2024 Non-patient / Non-visit [facility] Start: 03-01-2024 End: 03-01-2024 Refill Ishmael Simon MD Work Phone: [facility] Comment on above: Degeneration of lumb ar intervertebral disc Start: 02-14-2024 End: 02-14-2024 ambulatory [facility] Start: 02-14-2024 End: 02-14-2024 Subsequent hospital visit by physician Varsha Vance [facility] Comment on above: Cardiac pacemaker in situ; Sinoatrial node dysfunction (Multi) Start: 02-06-2024 End: 02-06-2024 Bamboo flowsheet Ishmael Simon MD Work Phone: [facility] Start: 02-06-2024 End: 02-06-2024 Bamboo flowsheet Ishmael Simon MD Work Phone: [facility] Start: 02-06-2024 End: 02-06-2024 Clinisync Result Encounter Ishmael Simon MD Work Phone: [facility] External Department Unsolicited Start: 02-06-2024 End: 02-06-2024 ambulatory ISHMAEL SIMON Not Available Start: 02-06-2024 End: 02-06-2024 Office outpatient visit 15 minutes Ishmael Simon MD Work Phone: [facility] Comment on above: Dysuria (Primary Dx) ; Acute prostatitis; Pyuria Start: 02-02-2024 End: 02-03-2024 Refill Ishmael Simon MD Work Phone: [facility] Comment on above: Other intervertebral disc degeneration, lumbar region; Degeneration of lumbar or lumbosacral intervertebral disc Start: 01-27-2024 End: 01-27-2024 Refill Ishmael Simon MD Work Phone: [facility] Comment on above: Degeneration of lumb ar intervertebral disc Start: 01-25-2024 End: 01-25-2024 ambulatory [facility] Start: 01-25-2024 End: 01-25-2024 Subsequent hospital visit by physician Varsha Restrepo [facility] Comment on above: Cardiac pacemaker in situ; Sinoatrial node dysfunction (Multi) Start: 01-13-2024 End: 01-13-2024 Bamboo flowsheet Ishmael Simon MD Work Phone: [facility] Start: 01-13-2024 End: 01-13-2024 Bamboo flowsheet Ishmael Simon MD Work Phone: [facility] Start: 01-13-2024 End: 01-13-2024 Office outpatient visit 25 minutes Ishmael Simon MD Work Phone: [facility] Comment on above: Type 2 diabetes randy itus with hyperglycemia, without long-term current use of insulin (CMS/HCC) (Primary Dx); Essential hypertension, benign (CMS/HCC); Chronic diastolic heart failure (CMS/HCC); Chronic obstructive pulmonary disease, unspecified COPD type (CMS/HCC); DDD (degenerative disc disease), lumbar; Primary osteoarthritis of right hip; Body mass index (BMI) 35.0-35.9, adult Start: 01-13-2024 End: 01-13-2024 ambulatory ISHMAEL SIMON Not Available Start: 12-30-2023 End: 12-30-2023 Refill Ishmael Simon MD Work Phone: [facility] Comment on above: Degeneration of lumb ar intervertebral disc Start: 12-01-2023 End: 12-01-2023 ambulatory [facility] Start: 11-09-2023 End: 11-09-2023 Office outpatient visit 40 minutes Naima MURILLO Work Phone: [facility] Comment on above: MRI safe [...] by physician [facility] 2 [facility] Comment on above: Pacemaker Start: 11-09-2023 End: 11-09-20[facility] Start: 10-10-2023 End: 10-10-2023 [facility] Start: 09-26-2023 End: 09-26-2023 ambulatory AMADOR SON [facility] Start: 09-26-2023 End: 09-26-2023 Subsequent hospital visit by physician Maddox Device Remote [facility] Comment on above: Cardiac pacemaker in situ; Sinoatrial node dysfunction (Multi) Start: 08-12-2023 End: 08-12-2023 ambulatory [facility] Start: 08-10-2023 End: 08-10-2023 Subsequent hospital visit by physician [facility]ox [facility] 3 [facility] Comment on above: Localized swelling o n left hand; S/P placement of cardiac pacemaker Start: 08-10-2023 End: 08-10-2023 ambulatory AMADOR SON [facility] Start: 08-10-2023 End: 08-10-2023 Office outpatient visit 25 minutes Amador Son MD Work Phone: [facility] Comment on above: Chronotropic incompe tence (Primary Dx); Abnormal stress test; Sinus bradycardia; Sick sinus syndrome (CMS/HCC); Essential hypertension, benign; BMI 34.0-34.9,adult; Current smoker Start: 08-05-2023 End: 08-05-2023 Subsequent hospital visit by physician Amador Son MD Work Phone: [facility] Comment on above: Sinus bradycardia (P rimary Dx); Chronotropic incompetence; Sick sinus syndrome (CMS/HCC); Other fatigue; Abnormal stress test; Dyspnea; Pacemaker Start: 07-22-2023 End: 07-22-2023 ambulatory [facility] Ambulatory Start: 07-22-2023 End: 07-22-2023 Encounter for preprocedural cardiovascular examination [facility] Start: 07-22-2023 End: 07-22-2023 Office outpatient new 60 minutes Amador Son MD Work Phone: [facility] Comment on above: Chronotropic incompe tence (Primary Dx); Sinus bradycardia; Establishing care with new doctor, encounter for; BMI 34.0-34.9,adult; Sick sinus syndrome (CMS/HCC); Simple chronic bronchitis (CMS/HCC); Current smoker; Other fatigue; Preoperative cardiovascular examination Start: 07-22-2023 End: 07-22-2023 Patient encounter status Amador Son MD Work Phone: [facility] Work Phone: Start: 07-13-2023 End: 07-13-2023 ambulatory [facility] Ambulatory Start: 07-13-2023 End: 07-13-2023 ambulatory [facility] Ambulatory Start: 10-14-2022 ambulatory NARENDRANATH LAKSHMIPATHY . Facility:H1 Start: 09-14-2022 End: 09-14-2022 ambulatory NARENDRANATH LAKSHMIPATHY . Facility:H1 Start: 08-31-2022 End: 09-01-2022 ambulatory NARENDRANATH LAKSHMIPATHY . Facility:H1 Start: 08-04-2022 End: 08-05-2022 ambulatory NARENDRANATH LAKSHMIPATHY . Facility:H1 Start: 07-23-2022 End: 08-07-2022 ambulatory NARENDRANATH LAKSHMIPATHY . Facility:H1 Start: 07-20-2022 End: 07-21-2022 ambulatory NARENDRANATH LAKSHMIPATHY . Facility:H1 Start: 07-15-2022 End: 07-16-2022 ambulatory AMINA SAMSA . Facility:H1 Start: 07-14-2022 Office outpatient vi sit 15 minutes Ishmael Simon Work Phone: [facility] 600 DO Work Phone: [...] 02-16-2022 Chart Update Ishmael Simon Work Phone: [facility] 250 DO Work Phone: Start: 02-15-[address] Valentino Ty Facility:44 Start: 01-28-[address] Ishmael Simon Facility: Start: 01-28-2022 Office consultation new/estab patient 60 min Ishmael Simon Work Phone: [facility] 600 DO Work Phone: Start: 01-14-2022 End: 01-15-2022 ambulatory TERESO COLMENARES . Facility:H1 Start: 01-01-2022 End: 01-02-[address] ISHMAEL SIMON Facility:H1 Start: 12-15-2021 End: 12-15-[address] RICKY IBARRA . Facility:H1 Start: 12-14-2021 Encounter for preprocedural laboratory examination DR RICKY IBARRA . [facility] Start: 12-12-2021 End: 12-13-[address] ISHMAEL SIMON Facility:H1 Start: 12-12-2021 End: 12-13-2021 Encounter for preprocedural laboratory examination DR ISHMAEL SIMON Facility:H1 Start: 12-08-2021 End: 12-08-[address] RICKY IBARRA . Facility: Start: 12-04-2021 End: 12-05-[address] ISHMAEL SIMON Facility: Start: 11-19-2021 End: 11-20-2021 ambulatory TERESO COLMENARES . Facility: Start: 11-03-2021 End: 11-03-[address] RICKY [...] UNIT Start: 03-14-2020 End: 03-15-2020 ambulatory JEY ELISE Facility:[facility] Procedures Date Procedure Procedure Detail Performing Clinician Start: 05-23-2024 Ecg routine ecg w/le ast 12 lds w/i&r Amador Son MD Work Phone: Start: 05-23-2024 Program eval implant able in persn dual ld pacer Naima Wright AGILE DEVELOPER-TUBE REBUILDER Work Phone: Start: 04-24-2024 MLR HEMOGLOBIN A1C Ishmael Simon MD Work Phone: Start: 03-27-2024 MR lumbar spine wo con Ishmael Simon MD Work Phone: Start: 03-27-2024 XR pre/post mri xray Robert Simon MD Work Phone: Start: 02-14-2024 Rem interrog pm/ldls pm/ids <90 d tech review Amador Son MD Work Phone: Start: 02-06-2024 TBH UA (CLEAN/CATCH) MICROSCOPIC IF INDICATE Ishmael Simon MD Work Phone: Start: 11-09-2023 Ecg routine ecg w/le ast 12 lds w/i&r Naima Wright AGILE DEVELOPER-TUBE REBUILDER Work Phone: Start: 11-09-2023 Program eval implant able in persn dual ld pacer Ana M Kumari AGILE DEVELOPER-TUBE REBUILDER Work Phone: Start: 09-26-2023 CARDIAC DEVICE CHECK - REMOTE NAIMA WRIGHT Start: 09-26-2023 CARDIAC DEVICE CHECK - REMOTE Amador Son MD Work Phone: Start: 08-10-2023 VASC US UPPER EXTREM ITY VENOUS DUPLEX LEFT NAIMA WRIGHT Start: 08-10-2023 Dup-scan xtr veins unilateral/limited study Naima Wright AGILE DEVELOPER-TUBE REBUILDER Work Phone: Start: 08-05-2023 Radiologic exam ches t single view Ana M Echo AGILE DEVELOPER-TUBE REBUILDER Work Phone: Start: 08-05-2023 Ecg routine ecg w/le ast 12 lds trcg only w/o i&r Ana M Echo AGILE DEVELOPER-TUBE REBUILDER Work Phone: Start: 08-05-2023 Electrophysiology study Amador Son MD Work Phone: Start: 08-05-2023 Echo tthrc r-t 2d w/ wom-mode compl spec&colr d Ana M Angel AGILE DEVELOPER-TUBE REBUILDER Work Phone: Start: 08-05-2023 Ecg routine ecg w/le ast 12 lds trcg only w/o i&r Ana M Angel APRN-TUBE REBUILDER Work Phone: Start: 08-05-2023 Basic metabolic pane l calcium total Ana M Angel AGILE DEVELOPER-TUBE REBUILDER Work Phone: Start: 07-22-2023 CASE REQUEST EP LAB MINDI RHTHAO Start: 07-22-2023 AMB REFERRAL TO CARD IAC ELECTROPHYSIOLOGY MOURSUE TRABOULSSI Start: 07-22-2023 ECG 12-LEAD MOURHAF TR ABOULSSI Start: 07-22-2023 Ecg routine ecg w/le ast 12 lds w/i&r Amador Son MD Work Phone: Start: 07-13-2023 HOLTER OR EVENT CARD IAC MONITOR MOBRISA DAMONI Start: 07-13-2023 ECG 12-LEAD MOURHAF TR ABOULSSI Start: 05-07-[address] ISHMAEL CROUCH Comment on above: Performed By: #### V ITAD, PSASC #### [facility] [address] [place] [address] Dr. Britt Mendoza Start: 03-15-2020 ANESTH HIP ARTHROPLASTY SIMONE RUIZ Start: 03-15-2020 TOTAL HIP ARTHROPLASTY JEY ELISE Start: 03-14-2020 Antibody screen SIMONE BOLIVAR Comment on above: Performed By: #### [id number] ####[facility] Start: 08-24-2019 Colonoscopy Ishmael faith MD [...] malignant neoplasm of colon [facility] Start: 04-24-2025 Medicare Annual Wellness (AWV) Medicare Annual Wellness (AWV) [facility] Start: 11-28-2024 End: 11-28-2024 Patient encounter procedure [facility] Start: 11-21-2024 End: 11-21-2024 Patient encounter procedure 11/21/2024 8:00 AM EDT Appointment [facility] [address] [place] [address] [facility] Start: 08-04-2024 Creatinine measurement Creatinine Level [facility] Start: 08-04-2024 Echocardiography Echocardiogram [facility] Start: 08-04-2024 Potassium measurement Potassium Level [facility] Start: 07-23-2024 End: 07-23-2024 Patient encounter procedure 07/23/2024 10:15 AM EDT Office Visit [facility] [address] [place] [address] Ishmael Simon MD [address] [place] [address] [facility] Start: 06-13-2024 End: 06-13-2024 Patient encounter procedure 06/13/2024 9:10 AM EST Office Visit [place] [address] [place] [address] Valentino Ty MD [address] [facility] [address], [address] [place] [address] [facility] Start: 05-25-2024 Urine screening for protein Diabetes: Urine Protein Screening [facility] Start: 05-23-2024 End: 05-23-2024 Patient encounter procedure [facility] Start: 05-17-2024 Glaucoma screening Diabetes: Retinopathy Screening [facility] Start: 05-11-2024 End: 11-08-2024 Cardiac Device Check - In Clinic Cardiac Device Check - In Clinic Implantable Cardiac Device Routine Sinus bradycardia Sick sinus syndrome (Multi) Chronotropic incompetence MRI safe cardiac pacemaker in situ Expected: 05/11/2024 (Approximate), Expires: 11/08/2024 [facility] Service Area Work Phone: Comment on above: Expected: 05/11/2024 (Approximate), Expi res: 11/08/2024 Start: 04-24-2024 End: 04-24-2025 Hemoglobin A1c/Hemoglobin.total in Blood Hemoglobin A1c Lab Routine Type 2 diabetes mellitus with hyperglycemia, without long-term current use of insulin ([facility]) Expected: 04/24/2024 (Approximate), Expires: 04/24/2025 [facility] Work Phone: Comment on above: Expected: 04/24/2024 (Approximate), Expi res: 04/24/2025 Start: 04-24-2024 End: 04-24-2024 Patient encounter procedure [facility] Comment on above: Arrived Start: 04-10-2024 Hemoglobin A1c measurement Diabetes: Hemoglobin A1C [facility] Start: 2024 RSV High Risk: (Elderly (60+) or Population) (1 - Risk 60-74 years 1-dose series) RSV High Risk: (Elderly (60+) or Population) (1 - Risk 60-74 years 1-dose series) [facility] Start: 02-06-2024 End: 02-05-2025 Bacteria identified in Urine by Culture Urine culture (clean catch) Microbiology Routine Dysuria Expected: 02/06/2024 (Approximate), Expires: 02/05/2025 [facility] Work Phone: Comment on above: Expected: 02/06/2024 (Approximate), Expi res: 02/05/2025 Start: 02-06-2024 End: 02-05-2025 Chlamydia trachomatis and Neisseria gonorrhoeae DNA [Identifier] in Unspecified specimen by KATT with probe detection Chlamydia DNA probe, direct Microbiology Routine Acute prostatitis Pyuria Expected: 02/06/2024 (Approximate), Expires: 02/05/2025 [facility] Comment on above: Expected: 02/06/2024 (Approximate), Expi res: 02/05/2025 Start: 02-06-2024 End: 02-05-2025 Neisseria gonorrhoeae DNA assay Gonococcus DNA, PCR Microbiology Routine Dysuria Acute prostatitis Pyuria Expected: 02/06/2024 (Approximate), Expires: 02/05/2025 [facility] Comment on above: Expected: 02/06/2024 (Approximate), Expi res: 02/05/2025 Start: 02-06-2024 End: 02-05-2025 Urinalysis complete panel - Urine Urinalysis with reflex microscopic (clean catch) Lab Routine Dysuria Expected: 02/06/2024 (Approximate), Expires: 02/05/2025 [facility] Comment on above: Expected: 02/06/2024 (Approximate), Expi res: 02/05/2025 Start: 01-13-2024 End: 01-13-2024 Patient encounter procedure [facility] Comment on above: Arrived Start: 01-08-2024 COVID-19 Vaccine ( season) COVID-19 Vaccine () [facility] Start: 01-08-2024 COVID-19 Vaccine () COVID-19 Vaccine () [facility] Start: 01-08-2024 Influenza vaccination [facility] Start: 11-21-2023 End: 11-21-2023 Patient encounter procedure 11/21/2023 8:50 AM EDT Office Visit [place] [address] [place] [address] Valentino Ty MD [address] [facility] [address], [address] [place] [address] [facility] Start: 11-09-2023 End: 08-04-2024 Cardiac Device Check - In Clinic [facility] Service Area Work Phone: Comment on above: Expected: 11/09/2023 (Approximate), Expi res: 08/04/2024 Start: 11-09-2023 End: 08-04-2024 XR Chest 2 Views [facility] Work Phone: Comment on above: Expected: 11/09/2023, Expires: Once for 1 Occurrenc es starting 11/09/2023 until 11/09/2023 Start: 11-09-2023 End: 11-09-2023 Patient encounter procedure [facility] Start: 11-03-2023 End: 11-03-2023 Patient encounter procedure 11/03/2023 8:50 AM EDT Office Visit [place] [address] [place] [address] Valentino Ty MD [address], [address] [place], [place] [id number] [facility] Start: 08-12-2023 End: 08-12-2023 Clinical Support 08/12/2023 8:30 AM EDT Clinical Support [facility] [address] [place] [address] [facility] Start: 08-10-2023 Subsequent hospital visit by physician 08/10/2023 2:09 PM EDT Hospital Encounter [facility] [address] [place] [address] Localized swelling on left hand; S/P placement of cardiac pacemaker [facility] Comment on above: Localized swelling on left hand; S/P placement of cardiac pacemaker Start: 07-22-2023 End: 07-21-2025 US Heart Transthoracic Transthoracic Echo Complete Echocardiography Routine Sinus bradycardia Chronotropic incompetence Sick sinus syndrome (CMS/HCC) Other fatigue Preoperative cardiovascular examination Expected: 07/22/2023 (Approximate), Expires: 07/21/2025 [facility] Work Phone: Comment on above: Expected: 07/22/2023 (Approximate), Expi res: 07/21/2025 Start: 07-13-2023 FUV, Provider: Valentino Ty, Status: Pen, Time: 8:30 AM FUV, Provider: Valentino Ty, Status: Pen, Time: 8:30 AM [facility] 600 DO Work Phone: Start: 01-07-2023 COVID-19 Vaccine ( season) COVID-19 Vaccine ( season) [facility] Start: 01-07-2023 Influenza vaccination Influenza Vaccine (#1) [facility] Start: 07-14-2022 FUV, Provider: Valentino Ty, Status: Pen, Time: 10:40 AM FUV, Provider: Valentino Ty, Status: Pen, Time: 10:40 AM [facility] 600 DO Work Phone: Start: 02-15-2022 STRESS JUICE, Provider: CARLITO MCKEONI NUCLEAR 01,[id number], Status: Pen, Time: 2:00 PM STRESS JUICE, Provider: CARLITO MCKEONI NUCLEAR 01,[id number], Status: Pen, Time: 2:00 PM [facility] 600 DO Work Phone: Start: 02-21-2014 Zoster Vaccines (1 of 2) Zoster Vaccines (1 of 2) [facility] Start: 02-21-1986 DTaP/Tdap/Td Vaccines (1 - Tdap) DTaP/Tdap/Td Vaccines (1 - Tdap) [facility] Start: 02-21-1983 Hepatitis B Vaccines (1 of 3 - 19+ 3-dose series) Hepatitis B Vaccines (1 of 3 - 19+ 3-dose series) [facility] Start: 02-21-1983 Pneumococcal vaccination Pneumococcal Vaccine (1 of 2 - PCV) [facility] Start: 02-21-1983 Urine screening for protein Diabetes: Urine Protein Screening [facility] Start: 02-21-1982 Diabetes mellitus screening Diabetes Screening [facility] Start: 02-21-1982 Hepatitis C screening Hepatitis C Screening [facility] Start: 02-21-1974 Diabetic foot examination Diabetes: Foot Exam [facility] Start: 02-21-1974 Glaucoma screening Diabetes: Retinopathy Screening [facility] Start: 02-21-1970 Pneumococcal Vaccine: Pediatrics (0 to 5 Years) and At-Risk Patients (6 to 64 Years) (1 - PCV) Pneumococcal Vaccine: Pediatrics (0 to 5 Years) and At-Risk Patients (6 to 64 Years) (1 - PCV) [facility] Start: 02-21-1970 Pneumococcal Vaccine: Pediatrics (0 to 5 Years) and At-Risk Patients (6 to 64 Years) (1 of 2 - PCV) Pneumococcal Vaccine: Pediatrics (0 to 5 Years) and At-Risk Patients (6 to 64 Years) (1 of 2 - PCV) [facility] Start: 02-21-1965 MMR Vaccines (1 of 1 - Standard series) MMR Vaccines (1 of 1 - Standard series) [facility] Start: 1964 COVID-19 Vaccine (#1) COVID-19 Vaccine (#1) [facility] Start: 1964 Annual wellness visit Welcome to Medicare Visit [facility] Start: 1964 Creatinine measurement Creatinine Level [facility] Start: 1964 Echocardiography Echocardiogram [facility] Start: 1964 Hemoglobin A1c measurement Diabetes: Hemoglobin A1C [facility] Start: 1964 Hepatitis B Vaccines (1 of 3 - 3-dose series) Hepatitis B Vaccines (1 of 3 - 3-dose series) [facility] Start: 1964 HIV screening HIV Screening [facility] Start: 1964 Lipid panel Lipid Panel [facility] Start: 1964 Medicare Annual Wellness (AWV) Medicare Annual Wellness (AWV) [facility] Start: 1964 Medicare Annual Wellness Visit Medicare Annual Wellness Visit (AWV) [facility] Start: 1964 Potassium measurement Potassium Level [facility] Start: 1964 Screening for malignant neoplasm of colon [facility] Start: 1964 Urine screening for protein Diabetes: Urine Protein Screening [facility] End: 07-21-2024 Basic metabolic 2000 panel - Serum or Plasma Basic Metabolic Panel Lab Routine Sinus bradycardia Chronotropic incompetence Sick sinus syndrome (CMS/HCC) Other fatigue 1 Occurrences starting 07/22/2023 until 07/21/2024 [facility] Work Phone: Comment on above: 1 Occurrences starting 07/22/2023 until 07/21/2024 End: 11-20-2025 Cardiac Device Check - In Clinic Cardiac Device Check - In Clinic Implantable Cardiac Device Routine Cardiac pacemaker in situ 1 Occurrences starting 05/23/2024 until 11/20/2025 [facility] Service Area Work Phone: Comment on above: 1 Occurrences starting 05/23/2024 until 11/20/2025 End: 01-25-2024 Cardiac Device Check - Remote [facility] Work Phone: Comment on above: Once for 1 Occurrences starting 01/25/20 24 until 01/25/2024 End: 11-20-2024 Cardiac Device Check - Remote Cardiac Device Check - Remote Implantable Cardiac Device Routine Cardiac pacemaker in situ 52 Occurrences starting 05/23/2024 until 11/20/2024 [facility] Work Phone: Comment on above: 52 Occurrences starting 05/23/2024 until 11/20/2024 End: 07-21-2024 CBC panel - Blood by Automated count CBC Lab Routine Sinus bradycardia Chronotropic incompetence Sick sinus syndrome (CMS/HCC) Other fatigue 1 Occurrences starting 07/22/2023 until 07/21/2024 [facility] Work Phone: Comment on above: 1 Occurrences starting 07/22/2023 until 07/21/2024 ECG 12 lead (Clinic Performed) ECG 12 lead (Clinic Performed) ECG Routine Sinus bradycardia 11/09/2023 10:38 AM EDT [facility] Work Phone: ECG 12 lead STAT ECG 12 lead STA T ECG STAT 08/05/2023 12:30 PM EDT [facility] Work Phone: ECG 12 lead STAT ECG 12 lead STA T ECG STAT 08/05/2023 5:12 PM EDT [facility] Work Phone: PPM IMPLANT DC PPM IMPLANT DC S inus bradycardia Chronotropic incompetence Sick sinus syndrome (CMS/HCC) Other fatigue [facility] Work Phone: End: 07-21-2024 Prothrombin time (PT) Protime-INR Lab Routine Sinus bradycardia Chronotropic incompetence Sick sinus syndrome (CMS/HCC) Other fatigue 1 Occurrences starting 07/22/2023 until 07/21/2024 [facility] Work Phone: Comment on above: 1 Occurrences starting 07/22/2023 until 07/21/2024 Payers Date Payer Category Payer Self-pay 2023 Medicare [id number] 2023 Medicare (Managed Care) 1.2. [id number] 2023 Private Health Insurance [id number] 2023 Private Health Insurance 1965 Unknown [id number] 2.16.840.1.341675.3.579.2.647 1964 Unknown [id number] 2.16.840.1.986152.3.579.2.647 1964 Unknown [id number] 2.16.840.1.395015.3.579.2.647 1964 Unknown [id number] 2.16.840.1.099394.3.579.2.1068 1964 Unknown [id number] 2.16.840.1.699514.3.579.2.356 1964 Unknown [id number] 2.16.840.1.874695.3.579.2.356 1964 Unknown [id number] 2.16.840.1.130478.3.579.2.593 1964 Unknown [id number] 2.16.840.1.394008.3.579.2.593 1964 Unknown [id number] 2.16.840.1.104341.3.579.2.593 1964 Unknown [id number] 2.16.840.1.554278.3.579.2.593 1964 Unknown [id number] 2.16.840.1.073861.3.579.2.593 1964 Unknown [id number] 2.16.840.1.242727.3.579.2.593 1964 Unknown [id number] 2.16.840.1.719366.3.579.2.593 1964 Unknown [id number] 2.16.840.1.305543.3.579.2.593 1964 Unknown [id number] 2.16.840.1.262072.3.579.2.593 1964 Unknown [id number] 2.16.840.1.212198.3.579.2.593 1964 Unknown [id number] 2.16.840.1.008188.3.579.2.593 1964 Unknown [id number] 2.16.840.1.301092.3.579.2.593 1964 Unknown [id number] 2.16.840.1.257101.3.579.2.593 1964 Unknown [id number] 2.16.840.1.671046.3.579.2.593 1964 Unknown [id number] 2.16.840.1.441368.3.579.2.593 1964 Unknown [id number] 2.16.840.1.284010.3.579.2.593 1964 Unknown [id number] 2.16.840.1.973095.3.579.2.593 1964 Unknown [id number] 2.16.840.1.967022.3.579.2.593 1964 Unknown [id number] 2.16.840.1.986222.3.579.2.593 1964 Unknown [id number] 2.16.840.1.952748.3.579.2.593 1964 Unknown [id number] 2.16.840.1.374402.3.579.2.593 1964 Unknown [id number] 2.16.840.1.808735.3.579.2.593 1964 Unknown [id number] 2.16.840.1.974892.3.579.2.593 1964 Unknown [id number] 2.16.840.1.193633.3.579.2.593 1964 Unknown [id number] 2.16.840.1.350884.3.579.2.1259 1964 Unknown [id number] 2.16.840.1.441604.3.579.2.1259 1964 Unknown [id number] 2.16.840.1.003884.3.579.2.1259 1964 Unknown [id number] 2.16.840.1.867048.3.579.2.1259 1964 Unknown [id number] 2.16.840.1.220519.3.579.2.196 1964 Unknown [id number] 2.16.840.1.781095.3.579.2.1244 1964 Unknown [id number] 2..840.1.161868.3.579.2.1244 1964 Unknown [id number] 2.16.840.1.764801.3.579.2.1244 1964 Unknown [id number] 2.16.840.1.954201.3.579.2.1244 1964 Unknown [id number] 2.16.840.1.985263.3.579.2.1244 1964 Unknown [id number] 2.16.840.1.249412.3.579.2.1244 1964 Unknown [id number] 2.16.840.1.022129.3.579.2.1244 1964 Unknown [id number] 2.16.840.1.296234.3.579.2.1244 1964 Unknown [id number] 2.16.840.1.223093.3.579.2.1246 1964 Unknown [id number] 2.16.840.1.035952.3.579.2.1246 1964 Unknown [id number] 2.16.840.1.287111.3.579.2.1246 1964 Unknown [id number] 2.16.840.1.590386.3.579.2.1246 1964 Unknown [id number] 2.16.840.1.870733.3.579.2.1246 1964 Unknown [id number] 2.16840.1.696222.3.579.2.124 1964 Unknown [id number] 2.16.840.1.942747.3.579.2.1246 1960 Medicaid [id number] 1960 Medicare [id number] Unknown [id number] Unknown Unknown M[employer] [id number] Unknown [id number] 2..840.1.066335.3.579.2.531 Unknown [id number] 2.16.840.1.737213.3.579.2.531 Social History Date Type Detail Facility Start: 07-13-2023 End: 05-23-2024 No alcohol use No alcohol use [facility] Comment on above: 1 pack daily; Start: 07-13-2023 End: 11-09-2023 Tobacco smoking status NHIS Smokes tobacco daily [facility] History of tobacco use Cigarette Smoker [facility] Work Phone: Start: 07-13-2023 End: 11-09-2023 Tobacco use and exposure Smokeless tobacco non-user [facility] Work Phone: Start: 07-22-2023 End: 05-23-2024 Alcohol intake Lifetime non-drinker (finding) [facility] Work Phone: Start: 07-13-2023 End: 05-23-2024 Tobacco use panel [facility] Start: 1965 Sex Assigned At Not on file [facility] Work Phone: Start: 07-12-2023 End: 05-23-2024 Exposure to SARS-CoV-2 (event) Not sure [facility] Frequency of Social Gatherings with Friends and Family Not on file [facility] Do you belong to any clubs or organizations such as yazidism groups, unions, fraternal or athletic groups, or [...] Not at all [facility] (I/We) worried wheth er (my/our) food would run out before (I/we) got money to buy more. Never true [facility] Start: 07-06-2019 Tobacco smoking stat us ORIS Smoker (finding) [facility] Start: 03-17-2024 End: 03-28-2024 Sex Male (finding) [facility] Start: 1965 Sex Assigned At Male F [facility] Medical Equipment Procedure Code Equipment Code Equipment Origin al Text Equipment Identifier Dates Lead, Capsurefix Novus, 52 Cm - [id number] Start: 08-05-2023 Lead, Capsurefix Novus, 45 Cm - [id number] Start: 08-05-2023 Pacemaker, Dual Chamber, [place] Mri Xt Dr - [id number] Start: 08-05-2023 Clinical Notes 08-31-2020 to 05-23-2024 Amador Son MD - 05/23/2024 8:45 AM ESTPatient Argenis Simon MD - 04/24/2024 11:38 AM Liz Simon MD - 04/24/2024 11:38 AM Liz Simon MD - 04/24/2024 11:38 AM ESTAttachments Note Date & Type Note Facility 05-23-2024 History of Present illness Narrative CARDIOLOGY OFFICE VISIT CHIEF COMPLAINT Chief Complaint Patient presents with Follow-up Pt is here today following up after 6 months with device check HISTORY OF PRESENT ILLNESS HPI 59-year-old male who is followed for symptomatic bradycardia and chronotropic incompetence. He underwent implantation of a dual-chamber pacemaker on August 05, 2023 and presents to the office today for follow-up evaluation. Since the last with visit he has been doing well. He is having significant pain around the right shoulder area. He is seen by orthopedic surgery. He denies any chest pain or shortness of breath or palpitations. EKG performed today shows atrial paced rhythm at rate of 74 bpm QRS ration 100 ms QT corrected 448 ms. Rhythm strip shows the same pattern. Patient had a device interrogation today at the device clinic and it shows dual-chamber pacemaker Medtronic with battery longevity 13 years. No evidence of atrial or ventricular arrhythmias. Past Medical History Past Medical History: Diagnosis Date Arrhythmia CHF (congestive heart failure) COPD (chronic obstructive pulmonary disease) (Multi) Hypertension [...] (Ventolin HFA) 90 mcg/actuation inhaler 2 puffs, Every 4 hours PRN Aldactone 100 mg, Daily with breakfast aspirin 81 mg, oral, Daily baclofen (Lioresal) 10 mg tablet TAKE 1/2 TO 1 TABLET BY MOUTH TWICE A DAY cetirizine (ZYRTEC) 10 mg, Nightly lebsungntcg-bnryapzee-bqlxbswy (TRELEGY-ELLIPTA) 100-62.5-25 mcg blister with device 1 puff furosemide (LASIX) 40 mg, 2 times daily gabapentin (NEURONTIN) 300 mg, Daily nabumetone (RELAFEN) 500 mg, 2 times daily omeprazole (PRILOSEC) 40 mg, Daily oxyCODONE-acetaminophen (Percocet) 7.5-325 mg tablet 1 tablet, Every 6 hours PRN oxygen (O2) gas therapy 2l at bedtime Singulair 10 mg, Nightly REVIEW OF SYSTEMS Review of Systems Cardiovascular: Negative for chest pain, dyspnea on exertion and palpitations. All other systems reviewed and are negative. VITALS Vitals: 05/23/24 0830 BP: 118/78 Pulse: 74 PHYSICAL EXAM Constitutional: General: Awake. Appearance: Normal and healthy appearance. Well-developed and not in distress. Obese. Neck: Vascular: No JVR. JVD normal. Pulmonary: Effort: Pulmonary effort is normal. Breath sounds: Normal breath sounds. No wheezing. No rhonchi. No rales. Chest: Chest wall: Not tender to palpatation. Comments: Left sided device pocket- healed and well approximated. No swelling or hematoma Cardiovascular: PMI at left midclavicular line. Normal [...] person, place and time. ASSESSMENT AND PLAN Clinical impressions: 1. Chronotropic incompetence and symptomatic sinus bradycardia status post dual-chamber pacemaker implant ([employer] [place] XT DR MRI) on August 05, 2023. 2. Normal left [...] Class II obesity with a BMI 35.27. Plan recommendations Patient is doing well from the electrophysiology standpoint. Continue with current medical therapy. Follow device clinic as scheduled. Follow my office every 6 months or sooner if needed. Risk factor modification and lifestyle modification discussed [...] prepare this document. documented in this encounter [facility] Work Phone: 05-23-2024 Instructions Jazz Flynn RN - 05/23/2024 8:45 AM EST Continue same medications/treatment. Patient educated on proper [...] requested at the time of your visit. Follow up with Dr. Son in 6 months with device check Continue remote checks at 3 and 9 months I, Jazz Aguila RN, AM SCRIBING FOR, AND IN THE PRESENCE OF DR. AMADOR SON MD documented in this encounter [facility] Work Phone: 04-24-2024 History of Present illness Narrative Associated Problem(s): Class 2 severe obesity due to excess calories with serious comorbidity and body mass index (BMI) of 37.0 to 37.9 in adult (CMS/HCC) Weight up 28 pounds in past year. Add ozempic. Associated Problem(s): Essential hypertension, benign (CMS/[facility]) BP controlled and monitor PRN. Associated Problem(s): Type 2 diabetes mellitus with hyperglycemia, without long-term current use of insulin ([facility]) Not checking BS and due for A1C. Add ozempic. Associated Problem(s): Medicare annual wellness visit, subsequent Due for labs. Discussed proper diet and regular aerobic exercise. Need aerobic exercise 5-6 days a week for 30 minutes at a time. Smaller portions and limit total calories. Colonoscopy every 10 years. Tetanus every 10 years. Advised not to smoke. Discussed daily Aspirin therapy. Images from the original note were not included. Subjective Patient ID: Liliana Michaels Jr is a 59 y.o. male who presents for Medicare Annual Wellness Visit Subsequent (Wellness/). Presents for medicare annual wellness visit. Patient stable today. Weight up 28 pounds over the past year. Not active and no regular exercise. Tries to watch diet and eat healthy. Increased fruits and vegetables. Smaller portions and limits snacking. Tries to limit total daily calories. Due for labs. Not checking BS away from office. Checking BP PRN and typically controlled. BP normal today. Taking medication daily and tolerating without side effects. Review of Systems Constitutional: Negative for fatigue. Respiratory: Negative for cough, shortness of breath and wheezing. Cardiovascular: Negative for chest pain and palpitations. Gastrointestinal: Negative for abdominal pain, diarrhea, nausea and vomiting. Genitourinary: Negative for dysuria. Objective Physical Exam Constitutional: General: He is not in acute distress. Appearance: Normal appearance. HENT: Head: Normocephalic. Right Ear: Tympanic membrane and ear canal normal. Left Ear: Tympanic membrane and ear canal normal. Eyes: Extraocular Movements: Extraocular movements intact. Pupils: Pupils are equal, round, and reactive to light. Cardiovascular: Rate and Rhythm: Normal rate and regular rhythm. Heart sounds: No murmur heard. No friction rub. No gallop. Pulmonary: Breath sounds: Normal breath sounds. No wheezing, rhonchi or rales. Abdominal: General: Bowel sounds are normal. There is no distension. Palpations: Abdomen is soft. Tenderness: There is no abdominal tenderness. There is no guarding or rebound. Musculoskeletal: Left lower leg: No edema. Neurological: Mental Status: He is alert. Assessment/Plan Problem List Items Addressed This Visit Essential hypertension, benign ([facility] [place] BP controlled and monitor PRN. Type 2 diabetes mellitus with hyperglycemia, without long-term current use of insulin ([facility] [place] Not checking BS and due for A1C. Add ozempic. Relevant Medications semaglutide (Ozempic, 0.25 or 0.5 MG/DOSE,) 2 MG/1.5ML solution pen-injector Other Relevant Orders Hemoglobin A1c Class 2 severe obesity due to excess calories with serious comorbidity and body mass index (BMI) of 37.0 to 37.9 in adult ([facility] [place] Weight up 28 pounds in past year. Add ozempic. Medicare annual wellness visit, subsequent - Primary Due for labs. Discussed proper diet and regular aerobic exercise. Need aerobic exercise 5-6 days a week for 30 minutes at a time. Smaller portions and limit total calories. Colonoscopy every 10 years. Tetanus every 10 years. Advised not to smoke. Discussed daily Aspirin therapy. documented in this encounter [facility] 02-06-2024 History of Present illness Narrative Associated Problem(s): Prostatitis Pain with urination and in testicles. Treat with cipro. Associated Problem(s): Dysuria History suggestive UTI and treat. Take cipro for infection. Send urine for culture. Increase water intake and cranberry juice. Use motrin or tylenol for discomfort. Images from the original note were not included. Subjective Patient ID: Liliana Michaels Jr is a 58 y.o. male who presents for UTI. Concerned of UTI. C/o pain and burning with urination over past 4-5 days. Increased frequency and urgency. Feels like emptying all the way. C/o pain and burning in urethra. Over past few days noticed a white discharge from end of penis. No redness or irritation in penis. Mild discomfort in testicles and low back. Afebrile. No nausea or emesis. With same partner for years and no known new sexual partners. Review of Systems Constitutional: Negative for fatigue. Respiratory: Negative for cough, shortness of breath and wheezing. Cardiovascular: Negative for chest pain and palpitations. Gastrointestinal: Negative for abdominal pain, diarrhea, nausea and vomiting. Genitourinary: Negative for dysuria. Objective Physical Exam Constitutional: General: He is not in acute distress. Appearance: Normal appearance. HENT: Head: Normocephalic. Right Ear: Tympanic membrane and ear canal normal. Left Ear: Tympanic membrane and ear canal normal. Eyes: Extraocular Movements: Extraocular movements intact. Pupils: Pupils are equal, round, and reactive to light. Cardiovascular: Rate and Rhythm: Normal rate and regular rhythm. Heart sounds: No murmur heard. No friction rub. No gallop. Pulmonary: Breath sounds: Normal breath sounds. No wheezing, rhonchi or rales. Abdominal: General: Bowel sounds are normal. There is no distension. Palpations: Abdomen is soft. Tenderness: There is no abdominal tenderness. There is no guarding or rebound. Musculoskeletal: Left lower leg: No edema. Neurological: Mental Status: He is alert. Assessment/Plan Problem List Items Addressed This Visit Dysuria - Primary History suggestive UTI and treat. Take cipro for infection. Send urine for culture. Increase water intake and cranberry juice. Use motrin or tylenol for discomfort. Relevant Orders Urine culture (clean catch) Urinalysis with reflex microscopic (clean catch) Gonococcus DNA, PCR Prostatitis Pain with urination and in testicles. Treat with cipro. Relevant Medications ciprofloxacin (Cipro) 500 MG tablet Other Relevant Orders Gonococcus DNA, PCR Chlamydia DNA probe, direct Pyuria Relevant Orders Gonococcus DNA, PCR Chlamydia DNA probe, direct documented in this encounter [facility] 01-13-2024 History of Present illness Narrative Associated Problem(s): Type 2 diabetes mellitus with hyperglycemia, without long-term current use of insulin (CMS/HCC) Not checking BS and A1C 5.8. Stick to ADA diet and limit carbs. Associated Problem(s): Primary osteoarthritis of right hip Pain stable and use percocet PRN. Continue home PT exercises. Associated Problem(s): Essential hypertension, benign (CMS/HCC) BP controlled and monitor PRN. Associated Problem(s): DDD (degenerative disc disease), lumbar Pain worse and follow with pain management for ablation. Associated Problem(s): Chronic obstructive pulmonary disease (CMS/HCC) Symptoms worse and treat with prednisone. Continue trelegy and use albuterol PRN. Associated Problem(s): Chronic diastolic heart failure (CMS/HCC) Occasional edema and use lasix PRN. Elevate legs PRN. Images from the original note were not included. Subjective Patient ID: Liliana Michaels Jr is a 58 y.o. male who presents for Follow-up (3 m). Follow up DM, HTN, edema, back pain, hip pain, and COPD. Patient stable today. Not checking BS away from office but last A1C 5.8. Tries to eat well and stick to ADA diet. Denies signs of elevated BS such as polyuria, polyphagia or polydipsia. Checking BP PRN and typically controlled. BP normal today. Taking medication daily and tolerating without side effects. Back pain recently worse. Increased pain in low back and across top hips. Pain radiates into right gluteal region and right thigh. Pain increased with walking and standing. Using percocet PRN and helps with pain. Radicular pain much worse and scheduled for ablation with pain management 01/23. Right hip pain stable. Stiff and sore in am but improved once up and moving. Tries to walk and stay active. Tries to perform home PT exercises which help. Edema controlled with medication. Mild swelling at end of day and if on feet a lot. Edema improved in am and with elevation. Uses lasix PRN and helps when needed. COPD recently wore. Increased SOB with exertion. Frequent cough and sputum. Taking trelegy daily and using albuterol PRN. Following with pulmonology. Review of Systems Constitutional: Negative for fatigue. Respiratory: Negative for cough, shortness of breath and wheezing. Cardiovascular: Negative for chest pain and palpitations. Gastrointestinal: Negative for abdominal pain, diarrhea, nausea and vomiting. Genitourinary: Negative for dysuria. Objective Physical Exam Constitutional: General: He is not in acute distress. Appearance: Normal appearance. HENT: Head: Normocephalic. Right Ear: Tympanic membrane and ear canal normal. Left Ear: Tympanic membrane and ear canal normal. Eyes: Extraocular Movements: Extraocular movements intact. Pupils: Pupils are equal, round, and reactive to light. Cardiovascular: Rate and Rhythm: Normal rate and regular rhythm. Heart sounds: No murmur heard. No friction rub. No gallop. Pulmonary: Breath sounds: Normal breath sounds. No wheezing, rhonchi or rales. Abdominal: General: Bowel sounds are normal. There is no distension. Palpations: Abdomen is soft. Tenderness: There is no abdominal tenderness. There is no guarding or rebound. Musculoskeletal: Left lower leg: No edema. Neurological: Mental Status: He is alert. Assessment/Plan documented in this encounter [facility] 11-09-2023 History of Present illness Narrative CARDIOLOGY [...] DAY cetirizine (ZYRTEC) 10 mg, oral, Nightly bpazllfykbr-vlifvfzqv-nvheuant (TRELEGY-ELLIPTA) 100-62.5-25 mcg blister with device 1 [...] 68 bpm, prolonged AV conduction with a [place] interval of 220 ms, QRS durations 100 [...] sinus bradycardia status post dual-chamber pacemaker implant ([employer] [place] XT DR MRI) on August 05, 2023. 2. Normal left [...] prepare this document. documented in this encounter [facility] Work Phone: 08-10-2023 History of [...] some point he had some evaluation in [place] that shows no significant obstructive coronary disease [...] night however but few episodes in the lab technologist hours were also noted 5. No symptoms [...] Diagnosis Date Arrhythmia CHF (congestive heart failure) ([facility]) COPD (chronic obstructive pulmonary disease) ([facility]) Hypertension Social History Social History Tobacco Use [...] breakfast cetirizine (ZYRTEC) 10 mg, oral, Nightly eeyzgwnrjin-wwpgdynkg-rmyqvemc (TRELEGY-ELLIPTA) 100-62.5-25 mcg blister with device 1 [...] prepare this document. documented in this encounter [facility] Work Phone: 08-10-2023 Instructions Vero [...] Amador Son MD documented in this encounter [facility] Work Phone: 08-05-2023 Nurse Note Patient discharge instructions reviewed with patient and , verbalized understanding. Lt chest dressing remains dry/intact, no hematoma, no ecchymosis. Patient able to teachback site care instructions, follow up appointments. IV x2 removed and patient discharged to home via w/c. [facility] 08-05-2023 Nurse Note Patient discharge [...] and ice pack over site. Sterling from [employer] in room speaking to Pt and SO educating on home device monitor. Pt returned to room after echocardiogram. Denies needs at this time. documented in this encounter [facility] Work Phone: 08-05-2023 Nurse Note Patient sitting up in chair, denies any complaints of incisional pain. Lt upper chest incision remains dry/intact. Will begin discharge instructions. [facility] Work Phone: 08-05-2023 Nurse Note Patient ambulated to , gait steady. Pacer rep has already met with patient and . Lt upper chest dressing remains dry/intact. Lt arm in immobilizer and ice pack over site. [facility] Work Phone: 08-05-2023 Note Formatting of this n ote might be different from the original. Post EKG and CXR performed at bedside. Pt denies needs at this time. Left chest remains soft and stable with no hematoma or oozing. [facility] Work Phone: 08-05-2023 Miscellaneous Notes [...] discussed with patient. documented in this encounter [facility] Work Phone: 08-05-2023 Hospital Discharge instructions Ana M Kumari, AGILE DEVELOPER-TUBE REBUILDER - 08/05/2023 5:00 PM EDT Images from [...] your arm above shoulder level. Do not mushroom picker items that weigh greater than 10 [...] have been instructed by the device company service liaison representative regarding remote home monitoring. There are [...] sent through Care Everywhere.Pacemaker Insertion Discharge Instructions (Kiswahili)documented in this encounter [facility] Work Phone: 08-05-2023 Note Formatting [...] Pt denies further needs at this time. [facility] Work Phone: 08-05-2023 Note Table formatting [...] of infection. The patient should call the oilseed meat presser immediately if symptoms recur, or for any problems. The patient has been instructed accordingly. 2. Follow up with [facility] office in seven days for post-operative [...] Device implanted Device implanted Medtronic dual-chamber pacemaker [place] XT DR MRI model number W1 DR 017 number [id number]. Right atrial lead Medtronic 5076/45 serial number [id number] 8 mm [id number]. Imp (more content not included)... [id number] ER 08-05-2023 Note Formatting of this n ote might be different from the original. Sedation Plan ASA 2 Mallampati class: II. Risks, benefits, and alternatives discussed with patient. [facility] Work Phone: 08-05-2023 Attending History [...] some point he had some evaluation in [place] that shows no significant obstructive coronary disease [...] night however but few episodes in the lab technologist hours were also noted 5. No symptoms [...] breakfast cetirizine (ZYRTEC) 10 mg, oral, Nightly zjqsqklbocg-moiwtlvmm-myfopsjd (TRELEGY-ELLIPTA) 100-62.5-25 mcg blister with device 1 [...] software was utilized to prepare this document. [facility] Work Phone: 08-05-2023 History and [...] some point he had some evaluation in [place] that shows no significant obstructive coronary disease [...] night however but few episodes in the lab technologist hours were also noted 5. No symptoms [...] breakfast cetirizine (ZYRTEC) 10 mg, oral, Nightly blsockzdlhw-zuszqxywj-jgimbyez (TRELEGY-ELLIPTA) 100-62.5-25 mcg blister with device 1 [...] prepare this document. documented in this encounter [facility] Work Phone: 08-05-2023 Nurse Note Sterling from [employer] in room speaking to Pt and SO educating on home device monitor. [facility] 08-05-2023 Nurse Note Pt returned to room after echocardiogram. Denies needs at this time. [facility] Work Phone: 07-22-2023 History of [...] some point he had some evaluation in [place] that shows no significant obstructive coronary disease [...] night however but few episodes in the lab technologist hours were also noted 5. No symptoms [...] breakfast cetirizine (ZYRTEC) 10 mg, oral, Nightly jaaxlgesgqw-rxsfyefne-ahnaznfw (TRELEGY-ELLIPTA) 100-62.5-25 mcg blister with device 1 [...] prepare this document. documented in this encounter [facility] Work Phone: 07-22-2023 Instructions Jazz [...] AMADOR SON MD documented in this encounter [facility] Work Phone: 07-20-2022 Note CONSULTATION [...] right medial portion of his leg. [facility] 05-07-2022 Note CONSULTATION CONSULTATION DATE: 05/07/2022 [...] three months' time unless otherwise indicated. [facility] 01-14-2022 Note CONSULTATION CONSULTATION DATE: 01/14/2022 [...] it was recommended that he see a architectural design lecturer, which he did do. He did a Holter monitor study and is following up with his architectural design lecturer on 01/28/2022. Current medications include gabapentin 300 [...] agrees with the plan of care. [facility] 11-19-2021 Note CONSULTATION CONSULTATION DATE: 11/19/2021 [...] to S1. 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 [facility] Signed and Approved by: TERESO COLMENARES . 11/27/2021 14:13:00 [facility] 10-22-2021 Note CONSULTATION CONSULTATION DATE: 10/22/2021 [...] patient agrees with the plan of care. [facility] Signed and Approved by: TERESO COLMENARES . 11/04/2021 16:23:00 [facility] 10-01-2021 Note CONSULTATION CONSULTATION [...] shape. He has seen Dr. Nunn in [place] in the past regarding his back, and [...] Patient agrees with the plan of care. [facility] Signed and Approved by: TERESO COLMENARES . 10/08/2021 16:01:00 [facility] 08-31-2020 Note Microbiology PROCEDURE: Blood Culture [...] Locations R1: This [facility] performed at: [facility] [address] [place] [address], [id number] , , [facility] Comment on above: Performed By: #### [id number] ####[place] [address] 08-31-2020 Note Microbiology PROCEDURE: Blood Culture Charcoal [...] Locations R1: This test was performed at: [facility], [address] [place] [address], [facility] , , [facility] Comment on above: Performed By: #### [id number] ####[facility] [id number] [place] [address] Evaluation note Diagnosis 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 Sinus bradycardia Other specified cardiac dysrhythmias Establishing care with new doctor, encounter for BMI 34.0-34.9,adult Sick sinus syndrome (CMS/HCC) Sinoatrial node dysfunction Simple chronic bronchitis (CMS/HCC) Simple chronic bronchitis Current smoker Other fatigue Preoperative cardiovascular examination Pre-operative cardiovascular examination documented in this encounter [facility] Work Phone: Evaluation note* Diagnosis [...] dysfunction Other fatigue documented in this encounter [facility] Work Phone: Evaluation note* Diagnosis Localized swelling on left hand S/P placement of cardiac pacemaker 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 Abnormal stress test Other nonspecific abnormal cardiovascular system function study Sinus bradycardia Other specified cardiac dysrhythmias Sick sinus syndrome (CMS/HCC) Sinoatrial node dysfunction Essential hypertension, benign BMI 34.0-34.9,adult Current smoker documented in this encounter [facility] Work Phone: Evaluation note* Diagnosis Localized swelling on left hand S/P placement of cardiac pacemaker documented in this encounter [facility] Work Phone: Evaluation note* Diagnosis Cardiac pacemaker in situ Sinoatrial node dysfunction (Multi) Sinoatrial node dysfunction documented in this encounter [facility] Work Phone: Evaluation note* Diagnosis Cardiac pacemaker in situ Sinoatrial node dysfunction (Multi) Sinoatrial node dysfunction documented in this encounter [facility] Work Phone: Evaluation note* Diagnosis [...] lumbosacral intervertebral disc documented in this encounter [facility] HealthcareEvaluation noteNo assessment information [facility]Ke[facility] Work Phone: Evaluation note* Diagnosis MRI [...] (pediatric) Current smoker documented in this encounter [facility] Work Phone: Evaluation note* Diagnosis Pacemaker Cardiac pacemaker in situ documented in this encounter [facility] Work Phone: Evaluation note* Diagnosis [...] Other nonspecific finding on examination of urine Medicare annual wellness visit, subsequent- Primary Type 2 diabetes mellitus with hyperglycemia, without long-term current use of insulin ([facility]) Essential hypertension, benign (CMS/HCC) Essential hypertension, benign Class 2 severe obesity due to excess calories with serious comorbidity and body mass index (BMI) of 37.0 to 37.9 in adult ([facility]) documented in this encounter [facility] HealthcareEvaluation note* Diagnosis Cardiac pacemaker in situ Sinoatrial node dysfunction (Multi) Sinoatrial node dysfunction documented in this encounter [facility] Work Phone: Evaluation note* Diagnosis Degeneration of lumbar intervertebral disc Degeneration of lumbar or lumbosacral intervertebral disc documented in this encounter [facility] Healthcare[facility] note* Diagnosis Type 2 diabetes mellitus with hyperglycemia, without long-term current use of insulin (CMS/HCC)- Primary Essential hypertension, benign (CMS/HCC) Essential hypertension, benign Chronic diastolic heart failure (CMS/HCC) Chronic diastolic heart failure Chronic obstructive pulmonary disease, unspecified COPD type (CMS/HCC) DDD (degenerative disc disease), lumbar Degeneration of lumbar or lumbosacral intervertebral disc Primary osteoarthritis of right hip Body mass index (BMI) 35.0-35.9, adult documented in this encounter [facility] Healthcare[facility] note* Diagnosis Degeneration of lumbar intervertebral disc Degeneration of lumbar or lumbosacral intervertebral disc documented in this encounter [facility] HealthcareEvaluation note* Diagnosis Other intervertebral disc degeneration, lumbar region Degeneration of lumbar or lumbosacral intervertebral disc documented in this encounter [facility] Healthcare[facility]* Diagnosis Dysuria- Primary Acute prostatitis Pyuria Other nonspecific finding on examination of urine documented in this encounter [facility] Healthcare[facility] note* Diagnosis Type 2 diabetes mellitus with [...] Other nonspecific finding on examination of urine Medicare annual wellness visit, subsequent- Primary Type 2 diabetes mellitus with hyperglycemia, without long-term current use of insulin ([facility]) Essential hypertension, benign ([facility] [facility]) Essential hypertension, benign Class 2 severe obesity due to excess calories with serious comorbidity and body mass index (BMI) of 37.0 to 37.9 in adult ([facility]) Degeneration of lumbar intervertebral disc Degeneration of lumbar or lumbosacral intervertebral disc documented in this encounter [facility] HealthcareEvaluation note* Diagnosis Cardiac pacemaker in situ- Primary Sick sinus syndrome (Multi) Sinoatrial node dysfunction MRI safe cardiac pacemaker in situ Abnormal EKG Nonspecific abnormal electrocardiogram (ECG) (EKG) Chronotropic incompetence Other specified conduction disorder Sinoatrial node dysfunction (Multi) Sinoatrial node dysfunction Sinus bradycardia Other specified cardiac dysrhythmias Current smoker BMI 37.0-37.9, adult documented in this encounter [facility] Work Phone: Evaluation note* Diagnosis Sinus bradycardia Other specified cardiac dysrhythmias Sick sinus syndrome (Multi) Sinoatrial node dysfunction Chronotropic incompetence Other specified conduction disorder MRI safe cardiac pacemaker in situ documented in this encounter [facility] Work Phone: History of Present illness Narrative* Patient is here for cardiovascular evaluation for second opinion in regard to documents resting sinus bradycardia. The patient is 56-year-old with history of tobacco use and COPD was evaluated recently due to shortness of breath and his stress test showed questionable inferior wall ischemia. This led to a cardiac evaluation in [place] and its not clear to me whether [...] recent ischemic evaluation * 5 follow-up in [address] [place], [place] [address] Work Phone: History of Present illness Narrative* Patient is here for cardiovascular evaluation for second opinion in regard to documents resting sinus bradycardia. The patient is 56-year-old with history of tobacco use and COPD was evaluated recently due to shortness of breath and his stress test showed questionable inferior wall ischemia. This led to a cardiac evaluation in [place] and its not clear to me whether [...] ischemic evaluation * 5 follow-up in 6 [facility] Work Phone: History of Present illness Narrative* Patient is here for cardiovascular evaluation for second opinion in regard to documents resting sinus bradycardia. The patient is 56-year-old with history of tobacco use and COPD was evaluated recently due to shortness of breath and his stress test showed questionable inferior wall ischemia. This led to a cardiac evaluation in [place] and its not clear to me whether [...] ischemic evaluation * 5 follow-up in 6 [facility] Work Phone: History of Present illness [...] ischemic evaluation. He underwent cardiac catheterization in [place] which showed no significant obstructive disease * [...] EKG or earlier if the need arise [facility] 600 DO Work Phone: Reason for visit Narrative* Imaging (Routine) - Pending Review Specialty Diagnoses / Procedures Referred By Isela mckay Referred To Contact Cardiology Diagnoses Sinus bradycardia Sick sinus syndrome (Multi) Chronotropic incompetence MRI safe cardiac pacemaker in situ Procedures Cardiac Device Check - In Clinic Naima Wright APRN-CNP Phone: tel: fax: Referral ID Status Reason Start Date Expiration Date Visits Requested Visits Authorized [id number] Pending Review Perform Procedure 11/09/2023 11/08/2024 1 1 [facility] Work Phone: Summary Purpose Family History No [...] Directives No June 4:40pm Chief Complaint LILIANA BRANDO is being seen for npv/ jenelle.LILIANA BRANDO is being seen for npv/ jenelle.LILIANA MICHAELS is being seen for npv/ jenelle.LILIANA MICHAELS is being seen for a month follow-up of. Reason for Referral Specialty Diagnoses / Procedures Referred By Contac t Referred To Contact Cardiology Diagnoses Sinus bradycardia Chronotropic incompetence Sick sinus syndrome (CMS/HCC) Other fatigue Preoperative cardiovascular examination Procedures Transthoracic Echo Complete [place] ECHO TTHRC R-T 2D W/WOM-MODE COMPL SPEC&COLR D Amador Son MD [address] [address] Referral ID Status Reason Start Date Expiration Date Visits Requested Visits Authorized [id number] Pending Review Perform Procedure 07/22/2023 07/21/2024 1 1 Specialty Diagnoses / Procedures Referred By Contac t Referred To Contact Diagnoses Sinus bradycardia Establishing care with new doctor, encounter for Procedures ECG 12 lead (Clinic Performed) Amador Son MD [address] [address] Referral ID Status Reason Start Date Expiration Date V isits Requested Visits Authorized [id number] Authorized 07/22/2023 07/21/2024 1 1 Specialty Diagnoses / Procedures Referred By Contac t Referred To Contact Radiology Diagnoses Pacemaker Procedures XR chest 2 views Ana M Kumari, AGILE DEVELOPER-TUBE REBUILDER [address] [facility], [address] [address] Referral ID Status Reason Start Date Expiration Date Visits Requested Visits Authorized [id number] Authorized Perform Procedure 08/05/2023 08/04/2024 1 1 Specialty Diagnoses / Procedures Referred By Contac t Referred To Contact Cardiology Diagnoses Pacemaker Procedures Cardiac Device Check - In Clinic Ana M Kumari APRN-TUBE REBUILDER [address] [facility], Aditya [address] [place] [id number] Referral ID Status Reason Start Date Expiration Date Visits Requested Visits Authorized [id number] Pending Review Perform Procedure 08/05/2023 08/04/2024 1 1 Specialty Diagnoses / Procedures Referred By Contac t Referred To Contact Cardiology Diagnoses Localized swelling on left hand S/P placement of cardiac pacemaker Procedures Vascular US upper extremity venous duplex left Barbour-Ellacott, Naima E, AGILE DEVELOPER-TUBE REBUILDER [address] [facility], [address] [address] Referral ID Status Reason Start Date Expiration Date Visits Requested Visits Authorized [id number] Authorized Perform Procedure 08/09/2023 08/08/2024 1 1 Specialty Diagnoses / Procedures Referred By Contac t Referred To Contact Cardiology Diagnoses Cardiac pacemaker in situ Sinoatrial node dysfunction (Multi) Procedures Cardiac Device Check - Remote Amador Son MD [address] [address] Referral ID Status Reason Start Date Expiration Date Visits Requested Visits Authorized [id number] Pending Review Perform Procedure 08/08/2023 08/07/2024 1 1 Specialty Diagnoses / Procedures Referred By Contac t Referred To Contact Cardiology Diagnoses Sinus bradycardia Sick sinus syndrome (Multi) Chronotropic incompetence MRI safe cardiac pacemaker in situ Procedures Cardiac Device Check - In Clinic Naima Wright AGILE DEVELOPER-TUBE REBUILDER [address] [address] Referral ID Status Reason Start Date Expiration Date Visits Requested Visits Authorized [id number] Pending Review Perform Procedure 11/09/2023 11/08/2024 1 1 Specialty Diagnoses / Procedures Referred By Contac t Referred To Contact Cardiology Diagnoses Sick sinus syndrome (Multi) MRI safe cardiac pacemaker in situ Procedures Follow Up In Cardiology Naima Wright AGILE DEVELOPER-TUBE REBUILDER [address] [facility], [address] [address] Amador Son MD [address] [address] Referral ID Status Reason Start Date Expiration Date V isits Requested Visits Authorized [id number] Authorized 11/09/2023 11/08/2024 1 1 Specialty Diagnoses / Procedures Referred By Contac t Referred To Contact Diagnoses Sinus bradycardia Procedures ECG 12 lead (Clinic Performed) Naima Wright AGILE DEVELOPER-TUBE REBUILDER [address] [facility], Adity[address] [place] [address] Referral ID Status Reason Start Date Expiration Date V isits Requested Visits Authorized [id number] Authorized 11/09/2023 11/08/2024 1 1 Chief Complaint [...] section and content) DATE CREATED AUTHOR 03/06/2021 [facility] DATE CREATED AUTHOR AUTHOR'S ORGANIZ ATION 03/12/[address] [facility] DATE CREATED AUTHOR AUTHOR'S ORGANIZ ATION 02/16/2022 [facility] DATE CREATED AUTHOR AUTHOR'S ORGANIZ ATION 07/16/2022 [facility] DATE CREATED AUTHOR AUTHOR'S ORGANIZ ATION 07/16/2022 [facility] DATE CREATED AUTHOR AUTHOR'S ORGANIZ ATION 09/17/2022 [facility] DATE CREATED AUTHOR AUTHOR'S ORGANIZ ATION 04/03/2024 [facility] DATE CREATED AUTHOR AUTHOR'S ORGANIZ ATION 04/27/2024 [facility] EPIC DATE CREATED AUTHOR AUTHOR'S ORGANIZ ATION 04/30/2024 [facility] DATE CREATED AUTHOR AUTHOR'S ORGANIZ ATION 05/26/2024 [facility] DATE CREATED AUTHOR AUTHOR'S ORGANIZ ATION 05/26/2024 [facility] Reason for Visit (unrecogniz ed section and content) Reason Comments New Patient Visit Pt is here today as a new patient from Dr. Ty Specialty Diagnoses / Procedures Referred By Isela mckay Referred To Contact Cardiology Diagnoses Sinus bradycardia Valentino Ty MD [address] [facility], Adity[address] [place] [address] Amador Son MD [address] [facility], [facility] [address] [place] [address] Referral ID Status Reason Start Date Expiration Date Visits Requested Visits Authorized [id number] Authorized Specialty Services Required 07/15/2023 07/14/2024 1 1 Specialty Diagnoses / Procedures Referred By Contac t Referred To Contact Diagnoses Sinus bradycardia Chronotropic incompetence Sick sinus syndrome (CMS/HCC) Other fatigue Sinus bradycardia [R00.1] Chronotropic incompetence [I45.89] Sick sinus syndrome (CMS/HCC) [I49.5] Other fatigue [R53.83] Procedures [place] INS NEW/RPLCMT PRM PM W/TRANSV ELTRD ATRIAL&VENT PPM IMPLANT DUAL Amador Son MD 254 [facility] [address] [place] [address] [facility] [address] [place] [address] Referral ID Status Reason Start Date Expiration Date Visits Re quested Visits Authorized [id number] 1 1 Reason Comments Wound Check Patient is having sw elling in his right hand Specialty Diagnoses / Procedures Referred By Isela t Referred To Contact Cardiology Diagnoses Localized swelling on left hand S/P placement of cardiac pacemaker Procedures Vascular US upper extremity venous duplex left Naima Wright E, AGILE DEVELOPER-TUBE REBUILDER [address] [facility], [facility] [address] [place] [address] Referral ID Status Reason Start Date Expiration Date Visits Requested Visits Authorized [id number] Authorized Perform Procedure 08/09/2023 08/08/2024 1 1 Specialty Diagnoses / Procedures Referred By Katyac t Referred To Contact Cardiology Diagnoses Cardiac pacemaker in situ Sinoatrial node dysfunction (Multi) Procedures Cardiac Device Check - Remote Amador Son MD [address] [place] [address] [address] [place] [address] Referral ID Status Reason Start Date Expiration Date Visits Requested Visits Authorized [id number] Pending Review Perform Procedure 08/08/2023 08/07/2024 1 1 Reason Onset Date Comments Med Refill 03/01/2024 Reason Onset Date Comments Med Refill 03/30/2024 Reason Comments Follow-up Pt is here today fol lowing up with device check Specialty Diagnoses / Procedures Referred By Contac t Referred To Contact Diagnoses Sinus bradycardia Procedures ECG 12 lead (Clinic Performed) Naima Wright, [facility] [address] [facility], [address] [address] Referral ID Status Reason Start Date Expiration Date V isits Requested Visits Authorized [id number] Authorized 11/09/2023 11/08/2024 1 1 Specialty Diagnoses / Procedures Referred By Contac t Referred To Contact Cardiology Diagnoses Pacemaker Procedures Cardiac Device Check - In Clinic Ana M Kumari, [facility] [address] [facility], [address] [address] Referral ID Status Reason Start Date Expiration Date Visits Requested Visits Authorized [id number] Pending Review Perform Procedure 08/05/2023 08/04/2024 1 1 Specialty Diagnoses / Procedures Referred By Contac t Referred To Contact Radiology Diagnoses Pacemaker Procedures XR chest 2 views Ana M Kumari, [facility] [address] [facility], [address] [address] Referral ID Status Reason Start Date Expiration Date Visits Requested Visits Authorized [id number] Authorized Perform Procedure 08/05/2023 08/04/2024 1 1 Reason Comments Medicare Annual Wellness Visit [facility] Reason Onset Date Comments Med Refill 12/30/2023 Reason Comments Follow-up 3 m Reason Onset Date Comments Med Refill 01/27/2024 Reason Comments Med Refill Reason Comments UTI Reason Onset Date Comments Med Refill 04/27/2024 Reason Comments Follow-up Pt is here today fol lowing up after 6 months with device check Specialty Diagnoses / Procedures Referred By Contac t Referred To Contact Cardiology Diagnoses Sick sinus syndrome (Multi) MRI safe cardiac pacemaker in situ Procedures Follow Up In Cardiology Naima Wright, AGILE DEVELOPER-TUBE REBUILDER Phone: tel: fax: Amador Son MD [address] [place] [address] Phone: tel: fax: Referral ID Status Reason Start Date Expiration Date V isits Requested Visits Authorized [id number] Authorized 11/09/2023 11/08/2024 1 1 Care Teams (unrecognized sec tion and content) Migrant Leader Relationship Specialty Start Date End Date Ishmael Simon MD [address] [place] [address] PCP - General Family Medicine 06/29/23 Migrant Leader Relationship Specialty Start Date End Date Ishmael Simon MD [address] [place] [address] PCP - General Family Medicine 06/29/23 Migrant Leader Relationship Specialty Start Date End Date Ishmael Simon MD [address] [place] [address] PCP - General Family Medicine 06/29/23 Migrant Leader Relationship Specialty Start Date End Date Ishmael Simon MD [address] [place] [address] PCP - General Family Medicine 06/29/23 Migrant Leader Relationship Specialty Start Date End Date Ishmael Simon MD PCP - General Family Medicine 06/29/23 Migrant Leader Relationship Specialty Start Date End Date Ishmael Simon MD [address] [place] [address] PCP - General Family Medicine 06/29/23 Naima Wright, AGILE DEVELOPER-TUBE REBUILDER [address] [facility], Adity[address] [place] [address] Nurse Practitioner Cardiology 11/07/23 Migrant Leader Relationship Specialty Start Date End Date Ishmael Simon MD [address] [place] [address] PCP - General Family Medicine 10/10/23 Team Status: Active Member Role Status Dates Ishmael Simon MD Primary Care Provider Active Team Status: Active Member Role Status Dates Ishmael Simon MD Primary Care Provider Active S tart: March 16, 2024 Danielle Bergeron NP-C Other Provider Active Start: March 16, 2024 Renetta Mills MD Attending Provider Active Start: March 16, 2024 Team Status: Inactive Member Role Status Dates Ishmael Simon MD Primary Care Provider Active S tart: March 27, 2024 End: March 27, 2024 CM BurnsC Attending Provider Active St art: March 27, 2024 End: March 27, 2024 Migrant Leader Relationship Specialty Start Date End Date Ishmael Simon MD [address] [place] [address] PCP - General Family Medicine 06/29/23 Naima Wright, AGILE DEVELOPER-TUBE REBUILDER [address] [facility], Adity[address] [place] [address] Nurse Practitioner Cardiology 11/07/23 Migrant Leader Relationship Specialty Start Date End Date Ishmael Simon MD [address] [place] [address] PCP - General Family Medicine 06/29/23 Naima Wright, AGILE DEVELOPER-TUBE REBUILDER [address] [facility], Aditya [address] [place] [address] Nurse Practitioner Cardiology 11/07/23 Migrant Leader Relationship Specialty Start Date End Date Ishmael Simon MD [address] [place] [address] PCP - General Family Medicine 10/10/23 Migrant Leader Relationship Specialty Start Date End Date Ishmael Simon MD [address] [place] [address] PCP - General Family Medicine 10/10/23 Migrant Leader Relationship Specialty Start Date End Date Ishmael Simon MD [address] [place] [address] PCP - General Family Medicine 10/10/23 Migrant Leader Relationship Specialty Start Date End Date Ishmael Simon MD [address] [place] [address] PCP - General Family Medicine 06/29/23 Naima Wright, AGILE DEVELOPER-TUBE REBUILDER [address] [facility], [facility] [address] [place] [address] Nurse Practitioner Cardiology 11/07/23 Migrant Leader Relationship Specialty Start Date End Date Ishmael Simon MD [address] [place] [address] PCP - General Family Medicine 10/10/23 Migrant Leader Relationship Specialty Start Date End Date Ishmael Simon MD [address] [place] [address] PCP - General Family Medicine 10/10/23 Migrant Leader Relationship Specialty Start Date End Date Ishmael Simon MD [address] [place] [address] PCP - General Family Medicine 10/10/23 Migrant Leader Relationship Specialty Start Date End Date Ismhael Simon MD [address] [place] [address] PCP - General Family Medicine 10/10/23 Migrant Leader Relationship Specialty Start Date End Date Ishmael Simon MD [address] [place] [address] PCP - General Family Medicine 10/10/23 Migrant Leader Relationship Specialty Start Date End Date Ishmael Simon MD [address] [place] [address] PCP - General Family Medicine 10/10/23 Migrant Leader Relationship Specialty Start Date End Date Ishmael Simon MD [address] [place] [address] PCP - General Family Medicine 10/10/23 Migrant Leader Relationship Specialty Start Date End Date Ishmael Simon MD [address] [place] [address] PCP - General Family Medicine 10/10/23 Migrant Leader Relationship Specialty Start Date End Date Ishmael Simon MD [address] [place] [address] PCP - General Family [facility] 06/29/23 Amador Son MD [address] [facility], [address] [address] Insurance Agency Sales Manager Electrophysiology 05/17/24 Migrant Leader Relationship Specialty Start Date End Date Ishmael Simon MD [address] [place] [address] PCP - General [facility] Medicine 06/29/23 Amador Son MD [address] [facility], [address] [address] Insurance Agency Sales Manager Electrophysiology 05/17/24 Scheduled Active and Recently Administ ered Medications [...] Continuous, Starting on Tue08/05/23 at 1230, Preprocedure, balance weigher to EP lab 1221 (New Bag - [...] BE BASED ON THE PRIMARY CLINICAL RECORDS. [facility]. provides no warranty or guarantee of the accuracy or completeness of information in this document.
--- NOTE | 2024-05-27 12:35 | XR_ITS ---
The [address] [address] Patient Name: LILIANA MICHAELS MRN: [id number] date: 1965 Sex: M Assigned Patient Location: ER Current Patient Location: ER Accession/Order Number: [id number] Exam Date: 05/27/2024 12:45 Report Date: 05/27/2024 13:22 At the request of: FINA HALE Procedure: XR chest 2V EXAM: XR chest 2V HISTORY: cough COMPARISON: 07/15/2022 TECHNIQUE: Chest X-ray AP, 1 view FINDINGS: Support devices: Left-sided pacemaker with distal leads overlying right atrium and right ventricle. Lungs/pleura: No consolidation, effusion, or pneumothorax. Heart and mediastinum: Normal contours. Bones: No acute abnormality identified. XR/XR chest 2V Impression: No radiographic evidence of acute cardiopulmonary process. Electronically authenticated by: JULIET SAUER Date: 05/27/2024 13:22
[2024-05-27 12:55] LABS: Internal Control Within Normal Limits; Strep A Antigen Screen Negative
[2024-05-27 13:01] LABS: Influenza Virus A Antigen Negative; Influenza Virus B Antigen Negative; Internal Control Within Normal Limits; SARS-CoV-2 Ag NEGATIVE (NEGATIVE)
[2024-05-27] MEDS: PREDNISONE 20 MG TABLET 40 MG PO (14:22)
[2024-05-27] MEDS: IPRATROPIUM/ALBUTEROL SULFATE 3 ML AMPUL.NEB IH ×2 (14:29→23:19)
[2024-05-27 15:30] LABS: Basophils Absolute Auto 0.1 10^3/uL (0.0-0.1); Basophils Percent Auto 0.8 % (0.2-2.0); Eosinophils Absolute Auto 0.1 10^3/uL (0.0-0.7); Eosinophils Percent Auto 0.8 % (0.9-7.0); Hematocrit 44.8 % (42.0-54.0); Hemoglobin 15.1 g/dL (14.0-18.0); Immature Granulocytes Abs Auto 0.12 10^3/uL (0.00-0.03); Immature Granulocytes Pct Auto 1.4 % (0.0-0.5); Lymphocytes Percent Auto 10.9 % (20.5-60.0); Mean Corpuscular HGB Conc 33.7 g/dL (29.9-35.2); Mean Corpuscular Hemoglobin 31.3 pg (25.9-34.0); Mean Corpuscular Volume 92.8 fL (80.0-94.0); Mean Platelet Volume 10.1 fL (9.5-13.5); Monocytes Absolute Auto 0.7 10^3/uL (0.3-0.8); Monocytes Percent Auto 8.2 % (1.7-12.0); Neutrophils Absolute Auto 6.9 10^3/uL (1.4-6.5); Neutrophils Percent Auto 77.9 % (43.0-75.0); Platelet Count 200 10^3/uL (150-450); Red Blood Count 4.83 10^6/uL (4.70-6.10); Red Cell Distribution Width 12.8 % (11.0-15.0); White Blood Count 8.8 10^3/uL (4.0-11.0)
[2024-05-27 15:49] LABS: Alanine Aminotransferase 47 U/L (16-63); Albumin Globulin Ratio 1.1; Albumin Level 3.6 g/dL (3.4-5.0); Alkaline Phosphatase 98 U/L (46-116); Anion Gap 14.8; Aspartate Amino Transferase 30 U/L (15-37); BUN Creatinine Ratio 12.5; Bilirubin Total 0.6 mg/dL (0.2-1.0); Calcium 8.7 mg/dL (8.5-10.1); Carbon Dioxide 27.1 mmol/L (21.0-32.0); Chloride 97 mmol/L (98-107); Estimated GFR (African America >60 (>=60 mL/min/1.73m^2); Estimated GFR (Non-African Ame >60 (>=60 mL/min/1.73m^2); Globulin 3.3 g/dL; Glucose 130 mg/dL (74-106); Potassium 3.9 mmol/L (3.5-5.1); Sodium 135 mmol/L (136-145); Total Protein 6.9 g/dL (6.4-8.2)
--- NOTE | 2024-05-27 15:54 | ED_ITS ---
HPI HPI - General Adult General Chief complaint: Upper Respiratory Infection Stated complaint: COVID SYMPTOMS Time Seen by Provider: 05/27/24 13:28 Source: patient Mode of arrival: walk-in History of Present Illness HPI narrative: The patient is a 59 years old male is coming to us with a 2 days history of runny nose associated with diarrhea and coughing, with increasing shortness of breath he mentioned that he usually use 2 L of nasal cannula only at night but he has has been needing more oxygen during the day and right now the patient mentioned that he has been having difficulty breathing with the pain when coughing Related Data Home Medications ?Medication ?Instructions ?Recorded ?Confirmed albuterol 90 mcg/actuation aerosol 90 mcg inhalation .Q6HRS PRN 10/14/22 05/27/24 inhaler shortness of breath or wheezing baclofen 10 mg tablet 10 mg PO BID 10/14/22 05/27/24 fluticasone fur. 100 mcg-umeclid 1 inh inhalation DAILY 10/14/22 05/27/24 62.5 mcg-vilant 25 mcg inhalat.powder (Trelegy Ellipta) furosemide 40 mg tablet 40 mg PO BID 10/14/22 05/27/24 montelukast 10 mg tablet 10 mg PO DAILY 10/14/22 05/27/24 nabumetone 500 mg tablet 500 mg PO BID 10/14/22 05/27/24 omeprazole 40 mg capsule,delayed 40 mg PO DAILY 10/14/22 05/27/24 release oxycodone-acetaminophen 7.5 mg-325 1 tab PO Q6H 10/14/22 05/27/24 mg tablet spironolactone 100 mg tablet 100 mg PO DAILY 10/14/22 05/27/24 cetirizine 10 mg tablet (24Hour 10 mg PO DAILY PRN allergy symptoms 04/16/24 05/27/24 Allergy) zonisamide 50 mg capsule 150 mg PO .HS 04/24/24 05/27/24 Allergies Allergy/AdvReac Type Severity Reaction Status Date / Time No Known Drug Allergies Allergy Verified 05/12/24 19:34 Opioid HPI Opioid Management Most Recent Opioid Data: Last Pain Scale 10 05/12/24 20:18 05/12/24 Review of Systems ROS Status of ROS 10 or more systems reviewed and unremark able except as noted in history and below [facility] Medical History (Updated 05/27/24 @ 15:58 by Yomaira Vyas MD) Right shoulder pain ?M25.511 - Pain in right shoulder (ICD-10) Obesity ?E66.9 - Obesity, unspecified (ICD-10) Kidney failure ?N19 - Unspecified kidney failure (ICD-10) Smoker ?F17.200 - Nicotine dependence, unspecified, uncomplicated (ICD-10) COPD (chronic obstructive pulmonary disease) ?J44.9 - Chronic obstructive pulmonary disease, unspecified (ICD-10) Hypertension ?I10 - Essential (primary) hypertension (ICD-10) Surgical History (Updated 04/12/24 @ 14:06 by Yola Sen) History of removal of cyst ?Z98.890 - Other specified postprocedural states (ICD-10) H/O elbow surgery ?Z98.890 - Other specified postprocedural states (ICD-10) S/P bladder repair ?Z98.890 - Other specified postprocedural states (ICD-10) S/P total hip arthroplasty ?Z96.649 - Presence of unspecified artificial hip joint (ICD-10) S/P cardiac pacemaker procedure ?Z95.0 - Presence of cardiac pacemaker (ICD-10) Social History Little interest or pleasure in doing things: not at all Feeling down, depressed, or hopeless: not at all Exam Narrative Exam Narrative: Nurses notes and vital signs reviewed and patient is not hypoxic. General: Well-appearing and in no apparent distress. Skin: Warm, dry, no pallor noted. No rash. Head: Normocephalic, atraumatic. Neck: Supple, non-tender. Eye: Pupils are equal, round and EOMI. No scleral icterus. Ears, Nose, Mouth, and Throat: TM are clear, no nasal mucosal hypertrophy. Oral mucosa is moist, no posterior oropharynx erythema, uvula is mid-line Cardiovascular: Regular Rate and Rhythm without murmur, gallop or rub. Respiratory: Distant breathing sound bilaterally, rhonchi heard in both lung [place] Back: No midline thoracic or lumbar vertebral tenderness. No CVA tenderness Musculoskeletal: normal ROM, no calf or popliteal tenderness, no lower extremity edema/swelling GI: Abdomen is soft, non-distended. Normal bowel sounds. No masses appreciated. No tenderness to palpation. No rebound, guarding, or rigidity noted. Constitutional Vital Signs, click to edit/add: Last Vital Signs Temp 98.6 F 05/27/24 12:27 Pulse 65 05/27/24 14:30 Resp 20 05/27/24 12:27 BP 143/70 H 05/27/24 15:45 Pulse Ox 91 L 05/27/24 15:50 O2 Del Method Room Air 05/27/24 14:30 Course Vital Signs Vital signs: Vital Signs Temperature 98.6 F 05/27/24 12:27 Pulse Rate 77 05/27/24 12:27 Respiratory Rate 05/27/24 12:27 Blood Pressure 129/72 05/27/24 12:27 Pulse Oximetry 94 L 05/27/24 12:27 Oxygen Delivery Method Room Air 05/27/24 12:27 Temperature 98.6 F 05/27/24 12:27 Pulse Rate 65 05/27/24 14:30 Respiratory Rate 05/27/24 12:27 Blood Pressure 143/70 H 05/27/24 15:45 Pulse Oximetry 91 L 05/27/24 15:50 Oxygen Delivery Method Room Air 05/27/24 14:30 Medical Decision Making MDM Narrative Medical decision making narrative: The patient EKG showing sinus rhythm with a heart rate of [address] elevation or depression The patient chest x-ray showed no acute pathology his COVID and flu test were negative Initial treatment with prednisone and breathing treatment it was noted that the patient saturating 91% on his 2 L while at rest Right now there is an increase in his oxygen demand and that mostly secondary to COPD exacerbation Patient will be admitted for further evaluation COPD exacerbation increasing oxygen demand Patient case was discussed with and he agreed with above mentioned plan Lab Data Labs: Lab Results 05/27/24 05/27/24 Range/Units 12:34 15:11 WBC 8.8 (4.0-11.0) 10^3/uL RBC 4.83 (4.70-6.10) 10^6/uL Hgb 15.1 (14.0-18.0) g/dL Hct 44.8 (42.0-54.0) % MCV 92.8 (80.0-94.0) fL MCH 31.3 (25.9-34.0) pg MCHC 33.7 (29.9-35.2) g/dL RDW 12.8 (11.0-15.0) % Plt Count 200 (150-450) 10^3/uL MPV 10.1 (9.5-13.5) fL Neut % (Auto) 77.9 H (43.0-75.0) % Lymph % (Auto) 10.9 L (20.5-60.0) % Wirt % (Auto) 8.2 (1.7-12.0) % Eos % (Auto) 0.8 L (0.9-7.0) % Baso % (Auto) 0.8 (0.2-2.0) % Neut # (Auto) 6.9 H (1.4-6.5) 10^3/uL Lymph # (Auto) 1.0 L (1.2-3.8) 10^3/uL Wirt # (Auto) 0.7 (0.3-0.8) 10^3/uL Eos # (Auto) 0.1 (0.0-0.7) 10^3/uL Baso # (Auto) 0.1 (0.0-0.1) 10^3/uL Abs Immat Gran (auto) 0.12 H (0.00-0.03) 10^3/uL Imm/Tot Granulo (auto) 1.4 H (0.0-0.5) % Sodium 135 L (136-145) mmol/L Potassium 3.9 (3.5-5.1) mmol/L Chloride 97 L (98-107) mmol/L Carbon Dioxide 27.1 (21.0-32.0) mmol/L Anion Gap 14.8 BUN 14.0 (7.0-18.0) mg/dL Creatinine 1.12 (0.70-1.30) mg/dL Est GFR ( Amer) >60 (>=60 mL/min/1.73m^2) Est GFR (Non-Af Amer) >60 (>=60 mL/min/1.73m^2) BUN/Creatinine Ratio 12.5 Glucose 130 H (74-106) mg/dL Calcium 8.7 (8.5-10.1) mg/dL Total Bilirubin 0.6 (0.2-1.0) mg/dL AST 30 (15-37) U/L ALT 47 (16-63) U/L Alkaline Phosphatase 98 (46-116) U/L Troponin I High Sens 5.0 (4.0-76.1) pg/mL Total Protein 6.9 (6.4-8.2) g/dL Albumin 3.6 (3.4-5.0) g/dL Globulin 3.3 g/dL Albumin/Globulin Ratio 1.1 Influenza Type A Ag Negative Influenza Type B Ag Negative SARS-CoV-2 Ag (CV2AG) Negative (NEGATIVE) Streptococcus Screen Negative Discharge Plan Discharge Chief Complaint: Upper Respiratory Infection Clinical Impression: COPD exacerbation, Increased oxygen demand Patient Disposition: Admitted as Observation Time of Disposition Decision: 15:57
--- NOTE | 2024-05-27 15:58 | ECG_ITS ---
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
--- OUTSIDE RECORDS SUMMARY | 2024-05-27 17:05 | XMS_ITS | CCD ---
Author Organization [facility] CliniSywa Care Team Providers Care Machine Puller And Laster Name Role Phone SIMONE RUIZ Admitting Unavailable SIMONE RUIZ Attending Unavailable ISHMAEL SIMON Referring Unavailable ISHMAEL SIMON Primary Care Unavailable JEY ELISE R Attending Unavailable JEY ELISE R Surgeon Unavailable MA Procedure Practitioner Unavailab ISHMAEL Campoverde Primary Care Unavailable ALFRED, ISHMAEL Referring Unavailable NILDAJEY R Admitting Unavailable JEY ELISE R Attending Unavailable ISHMAEL SIMON Primary Care Unavailable ISHMAEL SIMON Referring Unavailable JEY ELISE R Admitting Unavailable Ishmael Simon Unavailable Unavailable Unavailable Karson, Dr. Armstrong Attending Unavaila ble Traboulssi, Dr. Armstrogn Referring Unavaila ble Naderer, Dr. Ishmael Vallejo [...] Care Unavailable COLMENARES ., TERESO Consulting Unavailable BIARRA ., DR RICKY Bateman Consulting Unavailable [...] LANE, Ishmael Vallejo Primary Care Provider Adriana BAILEY-ANIMAL PATHOLOGIST, Naima E Unavailable Ishmael Simon MD Primary Care Provider [phone] Ishmael Simon MD Primary Care Provider [phone] Rubio SET UP MECHANIC COIL WINDING MACHINES-CDanielle Attending Provider Danielle Bergeron Attending Unavailable ChloeererIshmael Primary Care Unavailable Danielle Bergeron Admitting Unavailable Danielle Bergeron Attending Unavailable Chloeeremarilee, Ishmael Primary Care Unavailable Danielle Bergeron Admitting Unavailable NADERER, ISHMAEL Attending Unavailable NADERER, ISHMAEL Attending Unavailable NADERER, ISHMAEL Attending Unavailable NADERER, ISHMAEL Attending Unavailable Amy LANE, Jong Villalobos Attending Unavailable Amador Son MD Unavailable [phone] VALENTINO TY Attending Unavailable [facility] Hunt SY Primary Care Unavailabl e TITOOULNIC, MOURHAF Referring Unavailable [facility] Primary Care Unavailabl e SHAN SONTO N Attending Unavailable NADERERISHMAEL SY Primary Care Unavailabl e TITOOULHOMEI MOURHAF Referring Unavailable HUY AMADOR N Attending Unavailable NADERER, ISHMAEL SY Primary Care Unavailabl e NADERER, ISHMAEL [place] Primary Care Unavailabl e NAIMA WRIGHT E Attending Unavaila ble NADERER, ISHMAEL SY Primary Care Unavailabl e TRABOULSSI, BETHANYF Attending Unavailable KARSON MOURHAF Referring Unavailable NADEREISHMAEL Hunt SY Primary Care Unavailabl e HUY AMADOR N Attending Unavailable ADRIANA NAIMA E Referring Unavaila ble NADERERISHMAEL SY Primary Care Unavailabl e ADRIANA NAIMA E Referring Unavaila ble NADERER, ISHMAEL [place] Primary Care Unavailabl e HUY, AMADOR N [...] hyperglycemia, without long-term current use of insulin ([facility]) Inject 0.75 mg under the skin 1 [...] dose by inhal ation in the morning Fnxonvpbtcb-Nqsyrackh-Xljeqn (Trelegy El lipta) 100-62.5-25 MCG/ACT aerosol powder [...] 1 capsule by inhalation once daily Tiotropium Scandia (Spiriva With Handihaler) 18 mcg capsule, w/inhalation [...] (BMI) of 37.0 to 37.9 in adult ([facility])] Onset: 04-13-2023 04-24-2024 Chronic Other nutritional; endocrine; [...] 04-24-2024 04-24-2024 Other aftercare (1 source) Other manager intermediate (current) drug therapy; Translations: [OTH CORRECTIONAL FACILITY PSYCHIATRIST CURRENT DRUG THERAPY] Onset: 05-13-2022 Episodic Other aftercare (13 sources) Long-term current use of drug therapy; Translations: [Other manager intermediate (current) drug therapy] Onset: 04-13-2023 04-13-2023 [...] Device Check - In Cl inicon 05-23-2024 [facility] Work Phone: Radiology Study observation (narrative) [facility] Work Phone: ECG 12 lead (Clinic Performe d)on 05-23-2024 EKG performed today shows atrial paced rhythm at rate of 74 bpm QRS ration 100 ms QT corrected 448 ms. Rhythm strip shows the same pattern. [facility] Work Phone: [facility] Work Phone: MLR HEMOGLOBIN A1Con 024 Glucose [Mass/Vol] 131 mg/dL [facility] HbA1c (Bld) [Mass fraction] 6.2 % 4.5 - 6.2 % [facility] Comment on above: ADA RECOMMENDED LIMI T 4.0 - 6.0 ADA THERAPEUTIC TARGET < 7.0 ACTION SUGGESTED > 7.0 CLINISYNC [facility] Magnetic resonance imaging r eportOrdered By: Germán Murphy on 03-27-2024 Study report [facility] [place] [address] [place], [place] [id number] MRI Report Signed Patient: Liliana Michaels JR MR#: [id number] : 1965 Acct:[id number] Age/Sex: 59 / M ADM Date: 4 Loc: MR Room: Type: [facility] Attending Dr: Danielle GAYTAN Copies to: LUKAS Burns~ Ordering Provider: LUKAS Burns Date of Service: 03/27/24 MR/MR lumbar spine wo con: LUMBAR DDD ([id number]) XR/XR pre/post mri xray: LUMBAR DDD MRI [...] Murphy Jr., D.OAtiya03/27/2024 11:57 AM Dictation Location: [place] [address] Transcribed By: [facility] 03/27/24 1157 Dictated By: Germán Murphy Jr, DO 03/27/24 1148 Signed By: 03/27/24 1157 [facility] XR pre/post mri xrayon 03-27 XR pre/post mri xray [facility] [place] [address] MRI Report Signed Patient: Liliana Michaels JR MR#: [id number] : 1965 Acct:[id number] Age/Sex: 59 / M ADM Date: 03/27/24 Loc: MR Room: Type: [facility] Attending Dr: Danielle GAYTAN Copies to: LUKAS Burns Ordering Provider: LUKAS Burns Date of Service: 03/27/24 MR/MR lumbar spine wo con: LUMBAR DDD ([id number]) XR/XR pre/post mri xray: LUMBAR DDD MRI [...] Murphy Jr., D.O.03/27/2024 11:57 AM Dictation Location: [place] [address] Transcribed By: [facility] 03/27/24 1157 Dictated By: Germán Murphy Jr, DO 03/27/24 1148 Signed By: 03/27/24 1157 Normal [facility] XR chest 2V*on 03-16-2024 XR chest 2V* [facility] [place] [address] [place] [address] XRay Report Signed Patient: Liliana Michaels JR MR#: [id number] : 1965 Acct:[id number] Age/Sex: 59 / M ADM Date: 03/16/24 Loc: [facility] Room: Type: [facility] Attending Dr: Danielle GAYTAN Copies to: [...] Elia Rodrigez M.D.03/16/2024 8:54 AM Dictation Location: [place] [address] Transcribed By: [facility] 03/16/24 0854 Dictated By: Elia Rodrigez DO 03/16/24 0849 Signed By: 03/16/24 0854 Normal [facility] Cardiac Device Check - Remot neeta 02-14-2024 [facility] Work Phone: Radiology Study observation (narrative) [facility] Work Phone: TBH UA (CLEAN/CATCH) MICROSC OPIC [...] Test strip Ql (U) LARGE Abnormal NEGATIVE [facility] NITRITE URINE Negative NEGATIVE [facility] pH (U) 6.0 [pH] 5.0 - 9.0 [facility] PROTEIN URINE Negative NEG/TRACE mg/dL [facility] SPECIFIC GRAVITY URINE 1.015 1.005 - 1.025 [facility] URINE MICROSCOPIC INDICATED YES [facility] UROBILINOGEN URINE 0.2 EU/dL 0.2 - 1.0 EU/dL [facility] XR CHEST 2 VIEWSon XR CHEST 2 VIEWS Interpreted By: Sancho Gross, STUDY: XR CHEST 2 VIEWS; 11/09/2023 9:46 am INDICATION: Signs/Symptoms:Pacem marilyn. COMPARISON: 08/05/2023 ACCESSION NUMBER(S): [id number] ORDERING CLINICIAN: ANA M KUMARI FINDINGS: Left-sided pacemaker in place. CARDIOMEDIASTINAL SILHOUETTE: Cardiomediastinal silhouette is normal in size and configuration. LUNGS: Lungs are clear. ABDOMEN: No remarkable upper abdominal findings. BONES: No acute osseous changes. IMPRESSION: 1. No evidence of acute cardiopulmonary process. MACRO: None Signed by: Sancho Gross 11/10/2023 8:35 AM Dictation workstation: [id number] [facility] Comment on above: Order Comment: [facility] on 11/09/2023 at 8:30 AM for chest x-ray and device check prior to appointment with Dr. Son at 10 AM Cardiac Device Check - Remot neeta 09-26-2023 [facility] Work Phone: Radiology Study observation (narrative) [facility] Work Phone: US.doppler Upper extremity v ein - lefton 08-10-2023 Exam negative for acute deep venous thrombosis in the left upper extremity MACRO: None Signed by: Simone Ramos 08/10/2023 3:07 PM Dictation workstation: [id number] Interpreted By: Simone Ramos, STUDY: VASC US UPPER EXTREMITY VENOUS DUPLEX LEFT; 08/10/2023 2:47 pm INDICATION: Signs/Symptoms: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 COMPARISON: Portable chest 05 August 2023 ACCESSION NUMBER(S): [id number] ORDERING CLINICIAN: NAIMA WRIGHT TECHNIQUE: Vascular ultrasound [...] Portable chest 05 August 2023 ACCESSION NUMBER(S): [id number] ORDERING CLINICIAN: NAIMA WRIGHT TECHNIQUE: Vascular ultrasound [...] Simone Ramos 08/10/2023 3:07 PM Dictation workstation: [id number] [facility] Work Phone: Radiology Study observation (narrative) [facility] Work Phone: US.doppler Upper extremity v ein - leftOrdered By: Simone Ramos on 08-10-2023 [facility] Work Phone: VASC US UPPER EXTREMITY VENO US DUPLEX LEFTon 08-10-2023 VASC US UPPER EXTREMITY VENOUS DUPLEX LEFT Interpreted By: Simone Ramos, STUDY: VASC US UPPER EXTREMITY VENOUS DUPLEX LEFT; 08/10/2023 2:47 pm INDICATION: Signs/Symptoms: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 COMPARISON: Portable chest 05 August 2023 ACCESSION NUMBER(S): [id number] ORDERING CLINICIAN: NAIMA WRIGHT TECHNIQUE: Vascular ultrasound [...] Simone Ramos 08/10/2023 3:07 PM Dictation workstation: [id number] [facility] Basic metabolic 2000 panelon 08-05-2023 Anion gap [Moles/Vol] 12 mmol/L 10 - 2 0 mmol/L [facility] Calcium [Mass/Vol] 9.6 mg/dL 8.6 - 10. 3 mg/dL [facility] Chloride [Moles/Vol] 102 mmol/L 98 - 10 7 mmol/L [facility] CO2 [Moles/Vol] 29 mmol/L 21 - 32 mmol/L [facility] Creatinine [Mass/Vol] 1.12 mg/dL 0.50 - 1.30 mg/dL [facility] GFR/1.73 sq M.predicted among non-blacks MDRD (S/P/Bld) [Vol rate/Area] 76 mL/min/{1.73_m2} - PINF [facility] Comment on above: Calculations of yang mated GFR are performed using the 2020 CKD-EPI Study Refit equation without the race variable for the IDMS-Traceable creatinine methods. https://jasn.asnjournals.org/content/early/ASN.2020 232108 Glucose [Mass/Vol] 95 mg/dL 74 - 99 mg/dL [facility] Interpretation and review of laboratory results Normal [facility] Potassium [Moles/Vol] 4.0 mmol/L 3.5 - 5.3 mmol/L [facility] Sodium [Moles/Vol] 139 mmol/L 136 - 145 mmol/L [facility] Urea nitrogen [Mass/Vol] 17 mg/dL 6 - 23 mg/dL [facility] Anion gap [Moles/Vol] 12 mmol/L Normal 10-20 [facility] Comment on above: Performed By: #### 2 4321-2 #### JAIMEE QURESHI ([id number]) [facility] ([facility]) [address] [place] [address] 68676 Calcium [Mass/Vol] 9.6 mg/dL Normal 8.6-10.3 [facility] Comment on above: Performed By: #### 2 4321-2 #### JAIMEE QURESHI ([id number]) [facility] ([facility]) [address] [place] [address] 68101 Chloride [Moles/Vol] 102 mmol/L Normal 98-107 [facility] Comment on above: Performed By: #### 2 4321-2 #### JAIMEE QURESHI ([id number]) [facility] ([facility]) [address] [place] [address] 57665 CO2 [Moles/Vol] 29 mmol/L Normal 21-32 [facility] Comment on above: Performed By: #### 2 4321-2 #### JAIMEE QURESHI ([id number]) [facility] ([facility]) [address] [place] [address] 57498 Creatinine [Mass/Vol] 1.12 mg/dL Normal 0.50-1.30 [facility] Comment on above: Performed By: #### 2 4321-2 #### JAIMEE QURESHI ([id number]) [facility] ([facility]) [address] [place] [address] 84650 Glomerular filtration rate/1.73 sq M.predicted 76 mL/min/1.73m*2 Normal >60 [facility] Comment on above: Result Comment: Calc ulations of estimated GFR are performed using the 2020 CKD-EPI Study Refit equation without the race variable for the IDMS-Traceable creatinine methods. https://jasn.asnjournals.org/content/ASN 802460 Performed By: #### 2 4321-2 #### JAIMEE QURESHI ([id number]) [facility] ([facility]) [address] [place] [address] 56572 Glucose [Mass/Vol] 95 mg/dL Normal 74-99 [facility] Comment on above: Performed By: #### 2 4321-2 #### JAIMEE QURESHI ([id number]) [facility] ([facility]) [address] [place] [address] 08436 Potassium [Moles/Vol] 4.0 mmol/L Normal 3.5-5.3 [facility] Comment on above: Performed By: #### 2 4321-2 #### JAIMEE QURESHI ([id number]) [facility] ([facility]) [address] [place] [address] 86234 Sodium [Moles/Vol] 139 mmol/L Normal 136-145 [facility] Comment on above: Performed By: #### 2 4321-2 #### JAIMEE QURESHI (75993) [facility] ([facility]) [address] [place] [address] 81502 Urea nitrogen [Mass/Vol] 17 mg/dL Normal 6-23 [facility] Comment on above: Performed By: #### 2 4321-2 #### JAIMEE QURESHI ([id number]) [facility] ([facility]) [address] [place] [address] 31935 CBC panel Auto (Bld)on 08-04 Erythrocyte distribution width (RBC) [Ratio] 13.0 % 11.5 - 14.5 % [facility] Hematocrit (Bld) [Volume fraction] 46.9 % 41.0 - 52.0 % [facility] Hemoglobin (Bld) [Mass/Vol] 16.1 g/dL 13.5 - 17.5 g/dL [facility] Interpretation and review of laboratory results Normal [facility] MCH (RBC) [Entitic mass] 31.5 pg 26.0 - 34.0 pg [facility] MCHC (RBC) [Mass/Vol] 34.3 g/dL 32.0 - 36.0 g/dL [facility] MCV (RBC) [Entitic vol] 92 fL 80 - 100 fL [facility] Nucleated RBC/100 WBC (Bld) [Ratio] 0.0 % [facility] Platelets (Bld) [#/Vol] 279 10*3/uL [facility] RBC (Bld) [#/Vol] 5.11 10*6/uL [facility] WBC (Bld) [#/Vol] 8.9 10*3/uL [facility] Erythrocyte distribution width (RBC) [Ratio] 13.0 % Normal 11.5-14.5 [facility] Comment on above: Performed By: #### 5 8410-2 #### JAIMEE QURESHI (47455) [facility] (C) [address] [place] [address] 16833 Hematocrit (Bld) [Volume fraction] 46.9 % Normal 41.0-52.0 [facility] Comment on above: Performed By: #### 5 8410-2 #### JAIMEE QURESHI ([id number]) [facility] ([facility]) [address] [place] [address] 02869 Hemoglobin (Bld) [Mass/Vol] 16.1 g/dL Normal 13.5-17.5 [facility] Comment on above: Performed By: #### 5 8410-2 #### JAIMEE QURESHI ([id number]) [facility] ([facility]) [address] [place] [address] 05656 MCH (RBC) [Entitic mass] 31.5 pg Normal 26.0-34.0 [facility] Comment on above: Performed By: #### 5 8410-2 #### JAIMEE QURESHI ([id number]) [facility] ([facility]) [address] [place] [address] 72389 MCHC (RBC) [Mass/Vol] 34.3 g/dL Normal 32.0-36.0 [facility] Comment on above: Performed By: #### 5 8410-2 #### JAIMEE QURESHI ([id number]) [facility] ([facility]) [address] [place] [address] 60434 MCV (RBC) [Entitic vol] 92 fL Normal 80-[address] [facility] Comment on above: Performed By: #### 5 8410-2 #### JAIMEE QURESHI ([id number]) [facility] ([facility]) [address] [place] [address] 72097 Nucleated RBC/100 WBC (Bld) [Ratio] 0.0 /100 WBCs Normal 0.0-0.0 [facility] Comment on above: Performed By: #### 5 8410-2 #### JAIMEE QURESHI ([id number]) [facility] ([facility]) [address] [place] [address] 79301 Platelets (Bld) [#/Vol] 279 x10*3/uL Normal 150-450 [facility] Comment on above: Performed By: #### 5 8410-2 #### JAIMEE QURESHI ([id number]) [facility] ([facility]) [address] [place] [address] 17135 RBC (Bld) [#/Vol] 5.11 x10*6/uL Normal 4.50-5.90 [facility] Comment on above: Performed By: #### 5 8410-2 #### JAIMEE QURESHI ([id number]) [facility] ([facility]) [address] [place] [address] 14597 WBC (Bld) [#/Vol] 8.9 x10*3/uL Normal 4.4-11.3 [facility] Comment on above: Performed By: #### 5 8410-2 #### JAIMEE QURESHI ([id number]) [facility] ([facility]) [address] [place] [address] 42514 Electrophysiology studyon [facility] Work Phone: PT and aPTT panel Coag (PPP) on 08-05-2023 aPTT Coag (PPP) [Time] 34 s [facility] INR Coag (PPP) [Relative time] 1.0 {INR} 0.9 - 1.1 [facility] Interpretation and review of laboratory results Normal [facility] PT Coag (PPP) [Time] 11.0 s [facility] The APTT is no longer used for monitoring Unfractionated Heparin Therapy. For monitoring Heparin Therapy, use the Heparin Assay. [facility] aPTT Coag (PPP) [Time] 34 s Normal 27-38 [facility] Comment on above: Order Comment: The A PTT is no longer used for monitoring Unfractionated Heparin Therapy. For monitoring Heparin Therapy, use the Heparin Assay. Performed By: #### 3 4529-8 #### JAIMEE QURESHI ([id number]) [facility] ([facility]) [address] [place] [address] 20718 INR Coag (PPP) [Relative time] 1.0 Normal 0.9-1.1 [facility] Comment on above: Order Comment: The A PTT is no longer used for monitoring Unfractionated Heparin Therapy. For monitoring Heparin Therapy, use the Heparin Assay. Performed By: #### 3 4529-8 #### JAIMEE QURESHI ([id number]) [facility] ([facility]) [address] [place] [address] 49757 PT Coag (PPP) [Time] 11.0 s Normal 9.8-12.8 [facility] Comment on above: Order Comment: The A PTT is no longer used for monitoring Unfractionated Heparin Therapy. For monitoring Heparin Therapy, use the Heparin Assay. Performed By: #### 3 4529-8 #### JAIMEE QURESHI ([id number]) [facility] ([facility]) [address] [place] [address] 62254 TRANSTHORACIC ECHO (TTE) MARIA TERESA Olmos 08-05-2023 TRANSTHORACIC ECHO (TTE) COMPLETE [address] [address] TRANSTHORACIC ECHOCARDIOGRAM REPORT Patient Name: LILIANA MICHAELS Reading Physician: [id number] Batsheva Morris MD, [facility] Study Date: 08/05/2023 Ordering Provider: [id number] ANA M ANGEL MRN/PID: [id number] Fellow: Nurse: Date of /Age: 10 1965 Television Inspector: Eli Pisano RDGRACY Gender: M Additional Staff: Height: 162.56 cm Admit Date: Weight: 90.72 kg Admission Status: Outpatient BSA / BMI: 1.96 m2 / 34.33 Department Location: [facility]/m2 Echo Lab Blood Pressure: 128 /73 mmHg Study Type: TRANSTHORACIC ECHO (TTE) COMPLETE Diagnosis/ICD: Bradycardia, unspecified-R00.1 Indication: Abnormal EKG, Pre-EP CPT Codes: Echo Complete w Full Doppler-21683 Study Detail: The following Echo studies were [...] LA Area A2C: 18.9 cm2 LA [place] A4C: 5.8 cm LA [place] A2C: 5.5 cm LA Volume Index: 27.0 [...] 1.3 m/s (0.6-0.9m/s) PV Max P.6 mmHg [id number] Batsheva Morris MD, FACC Electronically signed on 08/05/2023 at 2:30:14 PM Final Normal [facility] US Heart TransthoracicOrdere d By: Batsheva Morris on 08-05-2023 Aortic Valve Area by Continuity of Peak Velocity 2.42 cm2 [facility] Work Phone: Aortic Valve Area by Continuity of VTI 2.62 cm2 [facility] Work Phone: AV mn grad 4.0 mmHg [facility] Work Phone: AV pk grad 8.2 mmHg [facility] Work Phone: AV pk abiodun 1.43 m/s [facility] Work Phone: LA vol index A/L 29.3 ml/m2 [facility] Work Phone: LV A4C EF 62.4 [facility] Work Phone: LV biplane EF 60 % [facility] Work Phone: LVIDd 5.28 cm [facility] Work Phone: LVOT diam 2.00 cm [facility] Work Phone: MV avg E/e' ratio 7.78 [facility] Work Phone: MV E/A ratio 0.88 [facility] Work Phone: RV free wall pk S' 15.40 cm/s [facility] Work Phone: RVSP 23.4 mmHg [facility] Work Phone: Tricuspid annular plane systolic excursion 3.6 cm [facility] Work Phone: [facility] Work Phone: US Heart Transthoracicon [place] [phone] TRANSTHORACIC ECHOCARDIOGRAM REPORT Patient Name: LILIANA Quiñones Physician: [id number] Morris MD, [facility] Study Date: 08/05/2023 Ordering Provider: [id number] ANA M ANGEL MRN/PID: [id number] Fellow: Nurse: Date of /Age: 10 1965 / 58 Television Inspector: Eli Pisano RDCS Gender: M Additional Staff: Height: 162.56 cm Admit Date: Weight: 90.72 kg Admission Status: Outpatient BSA / BMI: 1.96 m2 / 34.33 Department Location: [facility] kg/m2 Echo Lab Blood Pressure: 128 /73 mmHg Study Type: TRANSTHORACIC ECHO (TTE) COMPLETE Diagnosis/ICD: Bradycardia, unspecified-R00.1 Indication: Abnormal EKG, Pre-EP CPT Codes: Echo Complete w Full Doppler-70501 Study Detail: The following Echo studies were [...] LA Area A2C: 18.9 cm2 [place] A4C: 5.8 cm LA [place] A2C: 5.5 cm LA Volume Index: 27.0 [...] not included)... Batsheva Alexander MD - 08/05/2023 [place] [address] TRANSTHORACIC ECHOCARDIOGRAM REPORT Patient Name: LILIANA MICHAELS Reading Physician: [id number] Batsheva Morris MD, [facility] Study Date: 08/05/2023 Ordering Provider: [id number] ANA M Echo RITA MRN/PID: [id number] Fellow: Nurse: Date of /Age: 10 1965 / 58 Television Inspector: Eli Pisano RDGRACY Gender: M Additional Staff: Height: 162.56 cm Admit Date: Weight: 90.72 kg Admission Status: Outpatient BSA / BMI: 1.96 m2 / 34.33 Department Location: [place] [address] Echo Lab Blood Pressure: 128 /73 mmHg Study Type: TRANSTHORACIC ECHO (TTE) COMPLETE Diagnosis/ICD: Bradycardia, unspecified-R00.1 Indication: Abnormal EKG, Pre-EP CPT Codes: Echo Complete w Full Doppler-30228 Study Detail: The following Echo studies were [...] LA Area A2C: 18.9 cm2 [place] A4C: 5.8 cm LA [place] A2C: 5.5 cm LA Volume Index: 27.0 [...] 1.3 m/s (0.6-0.9m/s) PV Max P.6 mmHg [id number] Batsheva Morris MD, [facility] Electronically signed on 08/05/2023 at 2:30:14 PM Final [facility] Work Phone: XR CHEST 1 VIEWon 08-05-2023 XR CHEST 1 VIEW Interpreted By: Salvatore Clark, STUDY: XR CHEST 1 VIEW INDICATION: Signs/Symptoms:post implant. COMPARISON: None ACCESSION NUMBER(S): [id number] ORDERING CLINICIAN: ANA M KUMARI FINDINGS: No consolidation, effusion, edema, or pneumothorax. Pacemaker placed without pneumothorax. Position satisfactory. IMPRESSION: Status post pacemaker placement. Signed by: Salvatore Clark 08/05/2023 6:10 PM Dictation workstation: [id number] [facility] Comment on above: Order Comment: Wet r ead. XR Chest Single viewon 08-04 Status post pacemaker placement. Signed by: Salvatore Clark 08/05/2023 6:10 PM Dictation workstation: [id number] Interpreted By: Salvatore Clark, STUDY: XR CHEST 1 VIEW INDICATION: Signs/Symptoms:post implant. COMPARISON: None ACCESSION NUMBER(S): [id number] ORDERING CLINICIAN: ANA M KUMARI FINDINGS: No consolidation, effusion, edema, or pneumothorax. Pacemaker placed without pneumothorax. Position satisfactory. [facility] Salvatore Clark MD - 08/05/2023 Interpreted By: Salvatore Clark, STUDY: XR CHEST 1 VIEW INDICATION: Signs/Symptoms:post implant. COMPARISON: None ACCESSION NUMBER(S): [id number] ORDERING CLINICIAN: ANA M KUMARI FINDINGS: No consolidation, effusion, edema, or pneumothorax. Pacemaker placed without pneumothorax. Position satisfactory. IMPRESSION: Status post pacemaker placement. Signed by: Salvatore Clark 08/05/2023 6:10 PM Dictation workstation: [id number] [facility] Work Phone: Radiology Study observation (narrative) [facility] Work Phone: XR Chest Single viewOrdered By: Salvatore Clark on 08-05-2023 [facility] Work Phone: ECG 12 lead (Clinic Performe d)on 07-22-2023 EKG shows marked sinus bradycardia rate of 41 bpm QRS ration 100 ms QT corrected he had a 91 ms. Rhythm strip shows the same pattern. [facility] Work Phone: CT LUNG CANCER SCREENINGon [...] by: BATSHEVA ALVARADO Date: 2022-07-15 12:10 Normal [facility] Office Visit (Cardiology)on 07-14-2022 Follow-up [...] we can help. You may also call [phone]-ARTNYif[employer]NOW for free resources and assistance.; Status:Complete - Retrospective Authorization; Done: [id number] Patient Instructions Please bring all medicines, vitamins, [...] ischemic evaluation. He underwent cardiac catheterization in [place] which showed no significant obstructive disease 3. [...] BY MOUTH FOUR TIMES A DAY NEEDED Jjcjqo4n at bedtime Singulair 10 MG Oral TabletTAKE [...] Recorded: 14Jul2022 10:57AM Heart Rate34, L Radial Valuabaw346, LUE, Sitting Zmqsbzdfb17, LUE, Sitting Height5 ft 4 in Qzaduy898 lb BMI Xpnsbhvjcj76.96 kg/m2 BSA Calculated1.92 Tobacco Usea) Yes Patient encouraged to st (more content not included)... Normal [facility] Tobacco Screening.on 023 Adult depression screening assessment No [facility] dVisit DO Work Phone: Fall risk assessment a) No falls within the last year [facility] dVisit DO Work Phone: Tobacco use status CPHS a) Yes [facility] dVisit DO Work Phone: Tobacco Screening. Yes [facility] dVisit DO Work Phone: CT ABD/PELV W CONon [...] by: FLEX JACOBS Date: 2022-06-11 10:06 Normal [facility] CBC AUTO DIFFon 05-07-2022 BASO # 0.1 103/ul Normal 0.0-0.1 [facility] Comment on above: Performed By: #### C BC #### [facility] [address] [place] [address] Dr. Britt Mendoza Basophils/100 WBC (Bld) 1.6 % Normal 0.2-2.0 [facility] Comment on above: Performed By: #### C BC #### [facility] [address] [place], [place] [address] Dr. Britt Mendoza EO # 0.2 103/ul Normal 0.0-0.7 [facility] Comment on above: Performed By: #### C BC #### [facility] [address] [place] [address] [address] Britt Mendoza Eosinophils/100 WBC (Bld) 3.0 % Normal 0.9-7.0 [facility] Comment on above: Performed By: #### C BC #### [facility] [address] [place] [address] Dr. Britt Mendoza Erythrocyte distribution width (RBC) [Ratio] 12.4 % Normal 11.0-15.0 [facility] Comment on above: Performed By: #### C BC #### [facility] [address] [place] [address] Dr. Britt Mendoza Hematocrit (Bld) [Volume fraction] 43.2 % Normal 42.0-54.0 [facility] Comment on above: Performed By: #### C BC #### [facility] [address] [place] [address] Dr. Britt Mendoza Hemoglobin (Bld) [Mass/Vol] 14.7 g/dL Normal 14.0-18.0 [facility] Comment on above: Performed By: #### C BC #### [facility] [address] [place] [address] Dr. Britt Mendoza IG # 0.11 10e3/ul Critically high 0.00-0.03 [facility] Comment on above: Performed By: #### C BC #### [facility] [address] [place] [address] Dr. Britt Mendoza IG % 1.4 % Critically high 0.0-0.5 [facility] Comment on above: Performed By: #### C BC #### [facility] [address] [place] [address] Dr. Britt Mendoza LYMPH # 1.7 103/ul Normal 1.2-3.8 [facility] Comment on above: Performed By: #### C BC #### [facility] [address] [place] [address] Dr. Britt Mendoza Lymphocytes/100 WBC (Bld) 21.6 % Normal 20.5-60.0 [facility] Comment on above: Performed By: #### C BC #### [facility] [address] [place] [address] Dr. Britt Mendoza MANUAL DIFF REQ NO Normal [facility] Comment on above: Performed By: #### C BC #### [facility] [address] [place] [address] Dr. Britt Mendoza MCH (RBC) [Entitic mass] 31.2 pg Normal 25.9-34.0 [facility] Comment on above: Performed By: #### C BC #### [facility] [address] [place] [address] Dr. Britt Mendoza MCHC (RBC) [Mass/Vol] 34.0 g/dL Normal 29.9-35.2 [facility] Comment on above: Performed By: #### C BC #### [facility] [address] [place] [address] Dr. Britt Mendoza MCV (RBC) [Entitic vol] 91.7 fL Normal 80.0-94.0 [facility] Comment on above: Performed By: #### C BC #### [facility] [address] [place] [address] Dr. Britt Mendoza MONO # 0.5 103/ul Normal 0.3-0.8 [facility] Comment on above: Performed By: #### C BC #### [facility] [address] [place] [address] Dr. Britt Mendoza Monocytes/100 WBC (Bld) 6.8 % Normal 1.7-12.0 [facility] Comment on above: Performed By: #### C BC #### [facility] [address] [place] [address] Dr. Britt Mendoza NEUT # 5.0 103/ul Normal 1.4-6.5 [facility] Comment on above: Performed By: #### C BC #### [facility] [address] [place] [address] Dr. Britt Mendoza Neutrophils/100 WBC (Bld) 65.6 % Normal 43.0-75.0 [facility] Comment on above: Performed By: #### C BC #### [facility] [address] [place] [address] Dr. Britt Mendoza Platelet mean volume (Bld) [Entitic vol] 9.7 fL Normal 9.5-13.5 [facility] Comment on above: Performed By: #### C BC #### [facility] [address] [place] [address] [address] Britt Mendoza PLT 244 103/ul Normal 150-450 [facility] Comment on above: Performed By: #### C BC #### [facility] [address] [place] [address] [address] Britt Mednoza RBC 4.71 106/ul Normal 4.70-6.10 [facility] Comment on above: Performed By: #### C BC #### [facility] [address] [place] [address] Dr. Britt Mendoza WBC 7.6 103/ul Normal 4.0-11.0 [facility] Comment on above: Performed By: #### C BC #### [facility] [address] [place] [address] Dr. Britt Mendoza GLYCOHEMOGLOBIN A1Con 2021 ADA RECOMMENDATION SEE BELOW Normal [facility] [place] [facility] Comment on above: Result Comment: ADA RECOMMENDED LIMIT 4.0 - 6.0 ADA THERAPEUTIC TARGET < 7.0 ACTION SUGGESTED > 7.0 Performed By: #### A 1C ####[facility] [address] [place] [address]Dr. Britt Mendoza Glucose [Mass/Vol] 117 mg/dL Normal [facility] Comment on above: Performed By: #### A 1C ####[facility] [address] [place] [address]Dr. Britt Mendoza HbA1c (Bld) [Mass fraction] 5.7 % Normal 4.5-6.2 [facility] Comment on above: Performed By: #### A 1C ####[facility] [address] [place] [address]Dr. Britt Mendoza LIPID PROFILEon 05-07-2022 CHOL-HDL RATIO NORM SEE BELOW Normal [facility] Comment on above: Result Comment: 3.3 - 4.4 LOW RISK 4.4 - 7.1 AVERAGE RISK 7.1 - 11.0 MODERATE RISK >11.0 HIGH RISK Performed By: #### B MP, LIVER, LIPID, TSH ####[facility] [address] [place] [address]Dr. Britt Mendoza Cholesterol [Mass/Vol] 235 mg/dL Critically high <=200 [facility] Comment on above: Performed By: #### B MP, LIVER, LIPID, TSH ####[facility] [address] [place] [address]Dr. Britt Mendoza Cholesterol in HDL [Mass/Vol] 40 mg/dL Normal 40-60 [facility] Comment on above: Performed By: #### B MP, LIVER, LIPID, TSH ####[facility] [address] [place] [address]Dr. Britt Mendoza Cholesterol in LDL [Mass/Vol] 156.8 mg/dL Normal [facility] Comment on above: Performed By: #### B MP, LIVER, LIPID, TSH ####[facility] [address] [place] [address]Dr. Britt Mendoza Cholesterol.total/Viola sterol in HDL [Mass ratio] 5.9 {ratio} Normal [facility] Comment on above: Performed By: #### B MP, LIVER, LIPID, TSH ####[facility] [address] [place] [id number]. Anjalilan Mendoza HDL NORMAL > or = 60 mg/dl - LOW CARDIOVASCULAR RISK <40 mg/dl - HIGH CARDIOVASCULAR RISK Normal [facility] Comment on above: Performed By: #### B MP, LIVER, LIPID, TSH ####[facility] [address] [place] [id number]. Anjalilan Mendoza LDL CALC NORMAL SEE BELOW Normal [facility] Comment on above: Result Comment: <100 mg/dl OPTIMAL 100 - 129 mg/dl NEAR OR ABOVE OPTIMAL 130 - 159 mg/dl BORDERLINE HIGH 160 - 189 mg/dl HIGH >190 mg/dl VERY HIGH Performed By: #### B MP, LIVER, LIPID, TSH ####[facility] [address] [place] [address]Dr. Anjalilan Mendoza Triglyceride [Mass/Vol] 191 mg/dL Critically high <=150 [facility] Comment on above: Performed By: #### B MP, LIVER, LIPID, TSH ####[facility] [address] [place] [address]Dr. Britt Mendoza VLDL CALC 38.2 mg/dL Normal [facility] Comment on above: Performed By: #### B MP, LIVER, LIPID, TSH ####[facility] [address] [place] [address]Dr. Britt Mendoza LIVER PROFILEon 05-07-2022 Albumin [Mass/Vol] 3.6 g/dL Normal 3.4-5.0 [facility] [place] [facility] Comment on above: Performed By: #### B MP, LIVER, LIPID, TSH ####[facility] [address] [place] [address]Dr. Britt Mendoza Albumin/Globulin [Mass ratio] 1.1 {ratio} Normal [facility] Comment on above: Performed By: #### B MP, LIVER, LIPID, TSH ####[facility] [address] [place] [address]Dr. Britt Mendoza ALP [Catalytic activity/Vol] 84 U/L Normal 46-116 [facility] Comment on above: Performed By: #### B MP, LIVER, LIPID, TSH ####[facility] [address] [place] [address]Dr. Britt Mendoza ALT [Catalytic activity/Vol] 34 U/L Normal 16-63 [facility] Comment on above: Performed By: #### B MP, LIVER, LIPID, TSH ####[facility] [address] [place] [address]Dr. Britt Mendoza AST [Catalytic activity/Vol] 21 U/L Normal 15-37 [facility] Comment on above: Performed By: #### B MP, LIVER, LIPID, TSH ####[facility] [address] [place] [address]Dr. Britt Mendoza BILI, CONJUGATED 0.1 mg/dL Normal 0.0-0.2 [facility] Comment on above: Performed By: #### B MP, LIVER, LIPID, TSH ####[facility] [address] [place] [id number]. Britt Mendoza Bilirubin [Mass/Vol] 0.4 mg/dL Normal 0.2-1.0 [facility] Comment on above: Performed By: #### B MP, LIVER, LIPID, TSH ####[facility] [address] [place] [address]Dr. Birtt Mendoza Globulin (S) [Mass/Vol] 3.4 g/dL Normal [facility] Comment on above: Performed By: #### B MP, LIVER, LIPID, TSH ####[facility] [address] [place] [address]Dr. Britt Mendoza Protein [Mass/Vol] 7.0 g/dL Normal 6.4-8.2 [facility] [place] [facility] Comment on above: Performed By: #### B MP, LIVER, LIPID, TSH ####[facility] [address] [place] [address]Dr. Britt Mendoza PROF CHEM 8 (BAS METB)on Anion gap [Moles/Vol] 13.8 mmol/L Normal [facility] Comment on above: Result Comment: Prev iously reported as: -2.3 On 05/07/2022 13:50 By DM9 Performed By: #### B MP, LIVER, LIPID, TSH #### [facility] [address] [place] [address] [address] Britt Mendoza Calcium [Mass/Vol] 9.2 mg/dL Normal 8.5-10.1 [facility] Comment on above: Performed By: #### B MP, LIVER, LIPID, TSH #### [facility] [address] [place] [address] [address] Britt Mendoza Chloride [Moles/Vol] 99 mmol/L Normal 98-107 [facility] Comment on above: Result Comment: Prev iously reported as: 106 On 05/07/2022 13:50 By DM9 Performed By: #### B MP, LIVER, LIPID, TSH #### [facility] [address] [place] [address] [address] Britt Mendoza CO2 [Moles/Vol] 27.3 mmol/L Normal 21.0-32.0 [facility] Comment on above: Result Comment: Prev iously reported as: 29.2 On 05/07/2022 13:50 By DM9 Performed By: #### B MP, LIVER, LIPID, TSH #### [facility] [address] [place] [address] [address] Britt Mendoza Creatinine [Mass/Vol] 1.12 mg/dL Normal 0.70-1.30 [facility] Comment on above: Performed By: #### B MP, LIVER, LIPID, TSH #### [facility] [address] [place] [address] [address] Britt Mendoza EGFR-AF GUINEAN >60 Normal >=60 [facility] Comment on above: Performed By: #### B MP, LIVER, LIPID, TSH #### [facility] [address] [place] [address] Dr. Britt Mendoza EGFR-NON AF GUINEAN >60 Normal >=60 [facility] Comment on above: Performed By: #### B MP, LIVER, LIPID, TSH #### [facility] [address] [place] [address] [address] Britt Mendoza Glucose [Mass/Vol] 108 mg/dL Critically high 74-106 [facility] Comment on above: Performed By: #### B MP, LIVER, LIPID, TSH #### [facility] [address] [place] [address] Dr. Britt Mendoza Potassium [Moles/Vol] 4.1 mmol/L Normal 3.5-5.1 [facility] Comment on above: Result Comment: Prev iously reported as: 3.9 On 05/07/2022 13:50 By DM9 Performed By: #### B MP, LIVER, LIPID, TSH #### [facility] [address] [place] [address] Dr. Britt Mendoza Sodium [Moles/Vol] 136 mmol/L Normal 136-145 [facility] [place] [facility] Comment on above: Result Comment: Prev iously reported as: 129 On 05/07/2022 13:50 By DM9 Performed By: #### B MP, LIVER, LIPID, TSH #### [facility] [address] [place], [place] [address] Dr. Britt Mendoza Urea nitrogen [Mass/Vol] 26.0 mg/dL Critically high 7.0-18.0 [facility] Comment on above: Performed By: #### B MP, LIVER, LIPID, TSH #### [facility] [address] [place], [place] [address] Dr. Britt Mendoza Urea nitrogen/Creatinine [Mass ratio] 23.2 mg/mg Normal [facility] Comment on above: Performed By: #### B MP, LIVER, LIPID, TSH #### [facility] [address] [place], [place] [address] Dr. Britt Mendoza TSHon 05-07-2022 TSH 0.828 uIU/mL Normal 0.358-3.740 [facility] Comment on above: Performed By: #### B MP, LIVER, LIPID, TSH ####[facility] [address] [place], [place] [address]XqDr. Britt Mendoza VITAMIN D 25 OHon 05-07-2022 VIT D 25-OH 45.6 ng/mL Normal [facility] Comment on above: Performed By: #### V BRENDAN PSASC #### [facility] [address] [address] [address] Britt Mendoza VIT D RANGES SEE BELOW Normal [facility] Comment on above: Result Comment: <20 ng/mL Vit D deficient 20 - <30 ng/mL Vit D insufficient 30 - 100 ng/mL Vit D sufficient >100 ng/mL Potential Toxicity Performed By: #### V BRENDAN, PSASC #### [facility] [address] [id number] Britt Mendoza Covid-19 PCR (CVDTB)on SARS-CoV-2 (COVID-19) RNA KATT+probe Ql (Unsp spec) Detected Critically abnormal NOT DETECTED [facility] Comment on above: Result Comment: This test is not yet approved or cleared by the [place] FDA. When there are no FDA-approved or cleared tests available, and other criteria are met, FDA can make tests available under an emergency access mechanism called an Emergency Use Authorization (EUA). The EUA for this test is supported by the [place] of Health and Human Service's declaration that [...] longer be used). Performed By: #### C [facility] ####[facility] [place] [id number]. Britt Mendoza Cardiac Stress Test 2021 Cardiac Stress Test [address], [place] [address] Exercise Stress Test Patient Name: LILIANA MICHAELS JRAtiya Ordering Physician: [id number] Ty MD Study Date: 02/15/2022 Reading Physician: [id number] Ty MD MRN/PID: [id number] Supervising Physician: [id number] Rivera MD Accession/Order#: [id number] Referring Physician: VALENTINO TY Date of : 1965 PCP: Ishmael Simon Gender: M Fellow: Height: 162.56 cm Nurse: Yunior Bhatti RN Weight: 81.65 kg Television Inspector: NA BSA: 1.87 m2 Technologist: BMI: 30.90 kg/m2 Additional Staff: Age: 56 years cc report to: Patient Location: cc report to: [id number] Valentino Ty MD Study Type: Cardiac Stress Test Diagnosis/ICD: R94.31-Abnormal electrocardiogram [ECG] [EKG]; R00.1-Bradycardia, unspecified; R06.00-Dyspnea, unspecified Indication: Dyspnea Procedure/CPT: Stress Test Interpretation-[id number] ; Stress Test Supervision-[id number] Falls Risk: Low: Patient has low risk [...] 7. An element of chronotropic incompetency noted. [id number] Valentino Ty MD Electronically signed on 02/16/2022 at 2:52:20 PM Final [facility] Cardiac Stress Test Please click on the link to view the study images [facility] Work Phone: Cardiac Stress Test [facility]Sand[facility] y 250 DO Work Phone: Office Visit [...] Status:Hold For - Scheduling,Retrospec tive Authorization; Requested for:[id number]; Class 1 obesity with body mass index (BMI) of 30.0 to 30.9 in adult Healthy Weight Tips; Status:Complete - Retrospective Authorization; Done: [id number] Some eating tips that can help you lose weight.; Status:Complete - Retrospective Authorization; Done: [id number] Sinus bradycardia You need to stop smoking. Though it is not easy, more than half of all adult smokers have quit. We encourage you to write down all the reasons you should quit smoking and set a quit date for yourself. Ask us how we can help. You may also call [phone]-TOGEYif[employer]NOW for free resources and assistance.; Status:Complete - Retrospective Authorization; Done: [id number] SocHx: Current smoker Continue with our present treatment plan.; Status:Complete - Retrospective Authorization; Done: [id number] Tobacco Use Screening; Status:Complete; Done: [id number] Patient Instructions Please bring all medicines, vitamins, [...] This led to a cardiac evaluation in [place] and its not clear to me whether [...] Oral Capsule Delayed ReleaseTAKE 1 CAPSULE Daily Nazeoa8p at bedtime Sin (more content not included)... Normal [facility] Tobacco Screening.on 022 Adult depression screening assessment No [facility] [employer] 600 DO Work Phone: Fall risk assessment a) No falls within the last year [facility] [employer] 600 DO Work Phone: Tobacco use status CPHS a) Yes [facility] [employer] 600 DO Work Phone: Tobacco Screening. Yes [facility] 600 DO Work Phone: Covid-19 PCR (CVDTB)on SARS-CoV-2 (COVID-19) RNA KATT+probe Ql (Unsp spec) Not detected Normal NOT DETECTED [facility] Comment on above: Result Comment: This test is not yet approved or cleared by the [place] FDA. When there are no FDA-approved or cleared tests available, and other criteria are met, FDA can make tests available under an emergency access mechanism called an Emergency Use Authorization (EUA). The EUA for this test is supported by the [employer] Counselor of Health and Human Service's (HHS's) declaration [...] consistent with SARS-CoV-2. Performed By: #### C [facility] #### [facility] [address] [place] [address] Dr. Britt Mendoza Covid-19 PCR (CVDTB)on 11-07 SARS-CoV-2 (COVID-19) RNA KATT+probe Ql (Unsp spec) Not detected Normal NOT DETECTED [facility] Comment on above: Result Comment: This test is not yet approved or cleared by the [place] FDA. When there are no FDA-approved or cleared tests available, and other criteria are met, FDA can make tests available under an emergency access mechanism called an Emergency Use Authorization (EUA). The EUA for this test is supported by the [employer] Guid[employer] Counselor of Health and Human Service's (HHS's) declaration [...] consistent with SARS-CoV-2. Performed By: #### C [facility] ####[facility] [address] [place], [place] [address]QpAtiya Mendoza XR CHEST 2 Von 10-01-2021 XR [...] by: FLEX JACOBS Date: 2021-10-01 09:30 Normal [facility] Ambulatory Clinical Summaryo n 03-05-2021 Ambulatory Clinical Summary {[id number]}CD:[id number] Normal [facility] Historical Records Officeon 03-05-2021 Historical Records Office [id number] #1.00CD:127 Normal [facility] Patient Educationon 03-05-20 Patient Education Urology Erectile [...] these instructions at home: Medicines ? Take ibww-jnq-rtpwbbp and prescription medicines only as told by [...] (more content not included)... Normal [facility] Urology Office/Clinic Noteon 03-05-2021 Urology Office/Clinic Note [...] order. Ordered: Office Visit Level 4 Est 09374 2. Hypogonadism male (E29.1: Testicular hypofunction) noted [...] time. Ordered: Office Visit Level 4 Est 49473 3. BPH with urinary obstruction (N40.1: Benign prostatic hyperplasia with lower urinary tract symptoms) s/p Urolift September 2018. Pt is currently taking no bladder/prostate medication and is mostly satisfied with overall symptom control. has nocturia but attributes this to diuretics. Pt prefers to continue with no changes at this time. PCP checking PSAs per pt. Ordered: Office Visit Level 4 Est 40617 Orders: Urnls Dip Stick Auto w/o Microscopy POC 40034 offered f/u 1 yr but pt prefers PRN. Total time spent reviewing previous notes/results/title clerk automobile al documents, preparing the chart, conducting the encounter with the patient and family, ordering tests/medications, and documenting the encounter was 30 minutes. Follow-up With When Contact Information SIMONE JEAN BAPTISTE DC [address] [place] [address]- Additional Instructions: Patient Education Erectile Dysfunction Problem [...] (more content not included)... Normal [facility] Comment on above: Result Comment: Elec tronically Signed By: DANIEL MARTINEZ, TOMEKA Priest\.br\Date and Time Signed: 03/05/21 12:24 EDT MRI PELVIS WO CONTRASTon MRI PELVIS WO CONTRAST [facility] [facility] Department of Radiology [address] [place] [id number] Patient Name: LILIANA MICHAELS : 1965 Sex: M Age: Race: White Pt. Location: 18 Patient Status: Ordered Date: 09/10/2020 3:35:00 PM Completed Date: 10/03/2020 08:34 AM Requesting Provider: SIMONE RUIZ Attending Provider: Report Copy To: Signs & Symptoms: R10.2 Pelvic and perineal pain I10 History: [place], Right FOREIGN per clinic will fax [facility] auth# [id number] 09/16/20-10/17/20 cpt code 20032 *mla Comments: Right groin to r/o an [...] spine. Electronically signed: Dinh Miller. Transcribed by: [email or web address], User Resident: Electronically Signed by: DINH MILLER @ 10/03/2020 09:57 AM Normal [facility] Comment on above: Order Comment: Right groin to r/o an adductor tear; iliopsoas bursitis or injury Operative Reporton Operative Report MR#: [id number] S [facility] Pt. Name: Liliana Michaels Room [...] Ruiz MD Date Trans: 09/10/2020 11:40 P/mmo [id number] cc: Ishmael Simon M.D. [address] [place] [address] Lucas [facility] Coding Summary.on 09-01-2020 Coding Summary. CD:[id number] Gh0bWw+PGhlYWQ+PE1FV UPnH36smZDwyH5CD7tUU Z2GPBIMBCBMHE9BOW3ab HN0LOrpW3BgrfPm CevgcZTiSF43WAn6SVG6 qBnrBXalkR1jpFDdB5p8 IoKwFF99uG84SMdmVGBe IhQ2DnFnmzkycDIf K6eqJsDmfVXtTpw+PHRh YmxlIHdpZHRoPScxMDAl DiJdyHtiRJ1qPd6eWEHb LWNvbGxhcHNlOiBj c6cbNKCpFUaqZG5zqWww W6GqdCF3UICcz5b0Jk31 dHI+VAXuRFP7oRktDCrq t582JkNgn7dbGQT3 qHRpZSchCUX1Z28dn3I7 QPKfKTKwYKU6xDF1lY0v fXgwkmbbD8WrzWJkAcH5 UUQ2eMNyrM6wlIgq ubrdyB2kRus+E96FIA6B BYTBVS7IOzb9U8VxHgrv dHI+PH16VBCbIU46qMHv cVYye1yjkIt6PoJz KGFnEHZ0eNfzWLzmd2Qn OWDlO17xjJQbt2M2ALQy dDlclXMoIcJyqTP7hK2d NHqnkltpy6drfhxk Nmfln2wlxd99mF71J56e KTjyOVFaEOU9HLCmVRBm iIdagz9ywI1sDw7+IDxj m1bpb6ekrHl3NoQw SFVytvIwjBkmSDK4z8En Zg07O8VgsRsga4NaMja0 br17bARei1J8yMR7FTkx JEXlpQ9xBQnmZwX5 MAUsUiDmgS19hVIaUFrq Eo9zyRqlgPwlAC7kANOd ssenYBVczD2aPVKhvVZr jXbqGY6wRRQhoxih d896GcExARE8RKPmuIOj Q8JzcK1jUeQuIXUsFZUn N7NvfPBhPCsxS842SQte CuO4HRGjttUcR9Ek MRYpuSvmVnX9k6S6Fu1C i9HpgumsFGT5CQglCBG1 GxW6WfWmEyB1K1XqWgr2 HRPtfTaeLO9jD9Qa PNWqjqngeomxhDE7WHBe OZYkgH40xABqFNujTm3c p7T4o543BPTnEKSucX74 Ba8yjLofLSNvwEXS vZ5pfwemv2rzskkkJiLi MRRbJRm8MEh6SGGmjWvt YsKhXZB9TuE6LOM1mPJv hV7hcFjtcmygaH8k Oyc+V03gtD8qVUQ8OBO9 tcajSCMrmdWsSQ50EL30 P6GfCskofXJqlLL+PGRp fxOooMudSU2lXhRk g9xqq3StOOyjY4XzLJBa QXorUct2QVOuNHB9nCS6 vA8aHGPkRQnyv1D8xEP5 N6XofoZnnv3mj6bt XQHkKVhcX89lgEKsp2X1 YYIqnKP7OZMivHcdQuFg iH01Aek+PKUvqToke7Av Zwtzo1dfv4ojrHb1 IjMwJSIgdmFsaWduPSJ0 p5GbHa07Y11jOOxhBIMc ZDVcYKMnXZModLntbg8f zS5eHb4+PGNvbCB3 wLH5eV2rWVCiGkH7MRwu Y759PiZwoZNsJxuul6qp g6nejOn0LqFtEJDctkRh wOjmUVF6g7EhRd00 D10uPQchELVgCADpKJFj WCHbcPzmdo2eoQ4fVl2+ RX5ws4kdlt85vN83cSA+ TCNbZNO9tWctFLei RQZexR9uGBnkIlH6PITn XmMidX68jDWjGWteFh1c nFjqgQiqAS9uVHTcstyx x542BzKnp5wpZFOk wKJlGScbPOP9D62zq7C1 CRFoUZVvUET6gQG2cQ9l bGlnbjogbGVmdDsgdmVy pVqzBUwkRPsgN912 IHRvcDsnPlBhdGllbnQg NeDsUAl6U4VyMje1FPBh fUbiDK6acIZtQPcyJz1g uUczyMykPX1oHFLi yzwfe280EhUva3urPTBp tSUnPQeuSRD7M41sz8X9 KNSvQMPdJPD7dNI3uB3a bGlnbjogbGVmdDsg vaMzzLoiNHycQKjhA686 IHRvcDsnPkJpcnRoIERh tGA5BE54YP20gZTzl7Z3 cNX9M5CwLQGbiwgu pzliuAB7HAEyEDHmjD93 Ca0fzBtlQc0wANLoMUV4 TUOluFYlE8ZscZ2xHcLy BQUsXLDfB6OzqTYt RMrgO357NXouPvU3NWIi nuDiV8KkLGIxvJctGaW5 y4F6Ib2ID2W1IR70JO99 iBPbl0A2hEF0D1Of PRYqeomgnyuvmMC7DJKu BIVqbL62Nl2yyTmaKg0y OMEjREN4WKLezDYpN0Tw zL6pMqWsUZJiPCQr Q3GxkBTkRLsuC551DKml RaB9WXMgllMlS5QiLADa iKgqIrK0k3T5Re0QEJh2 LT77ZD80sZOnf4T6 vVW5L2TiSMYdncjbfkiq kXZ2FFJxOJQspF75Jc0w yEghGy4xARLkHJB8APMx zNKmH4NhgN7pIrJc TLQdEJChN2PsbGMmFNzj D425EQcuZzC0LCLldvQw V8AdMCFizGkeMiT9s0S9 Pv3PBMBrJZ63EEY6 jDX1NC27DU74J2WfQfrz dGFibGU+PHRhYmxlIHdp ZHRoPScxMDAlJyBzdHls RB7hFz3xETAqWNUd mOcoeNGxLmMby7lyIXAc UYozHN7nkQwaR8FaaHS7 DMYtz5g5Kk52W24cT6Cg dXA+BJNgmMW7cWD1 qL2wRgUyOfJ1AVroO691 FnAxlYLoHsapb7qgi8fj dVz5RiZ0FLBaksRooSve LHS6x0DkWv92O67m IHdpZHRoPSIxNSUiIHZh gAayih7fcK8gMa3+PGNv nSN5oBC7nZ1zCpAcQuP1 HNoqZ048ZjMffTKu Njtbr5amb1hrbZz4DxGo SLTcicCraUluKZU4n5Gl Aa84Q8HkmBxws8RiEiw0 gj93lSZki2Y5uGW9 M3LhHACmjclogINloEuw VW3jVJGznxoePWSzdT8w SDZjD3g0TrHvVwP0YBoo A5BmoiL4RLHqgFMp EYxpZGP6K76at1Z3QQNa EBNhHHG4eYM3iH8bbFjz bjogbGVmdDsgdmVydGlj JVouGBejZ357IIYo yDunNEAavS8eJWQprEEq jBmmYH5wHOTugccdVgvN XL8PMtrmZwJHMAgiNJke dGQ+KDFtWIC7sGuq DIzcINGqiP6aXXEpA0p0 VjXxTtP4SDilI9UmYOYa yyltDf08cI0aYsRwRxD0 CYruC9JwxbN8TTHi zNCdICziRQS6J94fl7W5 LOByNQOxXKK9pXG1tQ0u bGlnbjogbGVmdDsgdmVy bHteJEcmILlvT737 NUXecPjqVbFdTcK6JgX9 VgA1Q6QnDjy3DEZtpFkm CD3axHEgSSlcDq9bfRiy cLhjGJ1wGDWbntbb UMXsiR4cXAExmMEczUqi EC7yBPWfyxykc788HcAm CKY1UTItwQGeU7QzxY0z XnIkSRGmGWYuE6Bo cYHzMFaoM127BPbpMbE0 MDOgwdCaP5TwYWJafOdq RlJ8n4T3Zy40XwATGTAo czwvdGQ+PHRkIHN0 vMakJEldSHTuuE9lLJBy X9n6WsUzGfZ5AZyvF4Hb IKXdtwmzZc69wY8nAsNc NsA2GUmjD5MuhjG8 RGPdtVGcKQmcILJ0C97q x1C1TJXzYJVoMNZ2jJT6 sK1zgVldourkcQDnrKan dmVydGljYWwtYWxp R615HEThmTzgYr2foHR4 W9JdYwd4PDXmxLnlIT7w jCZfROjyNx4teSbtzQup LN8qKLNeahcwBETx rT6eZRJuuZSssRhpDR6v QKKlnqxvm470KlJrLGM6 RMClaSJhM7ZbhN7lVxYb RCBiKLHvM5VyfFZk VPbhT549ZZjnQhS5YLFs rzKjV0ClYOFawBhfKuD2 x1G6Ja1EgUQiO4JuE1r5 X7RhPhwucEX+PC90 WAYyGP49xJCygDEuq6hy vQs7NvXaMKNyNUO4mTaf KDmaf8NeYLVyE08byHGt n6D5VUGbtGuntLOt SgRkrRM9aW5kZMenpcjq u7thwjboGsbcz6ntxc13 cF61G02qGAniRDVmNYEx NTVtBCQqqOwibt9z tY1nAp8+ODWyuOP1cWM4 wE6xBeTmFdO5ICmfI384 UtRksERgPrvjm8vlr4mb zWv6DlHuZESehfLb xWagRMU5l4PeOb42R14c IHdpZHRoPSIyMCUiIHZh lWdhnb9llZ0qOu5+PC9j s7wqqi48fF57zWC+ QCZaEGD7gHlqGFzcICJk yG5eVTvbAbP7UZQmByVa aY76bPAqTAgdKn9fkJuv bWpzBN1kRENcqqxw o629UtRro3qzAEQvxTPs BOblQVM3Q31ua4Z8PJIg WJGcVAX4oHI9tA9ikTdu bjogbGVmdDsgdmVy qShrLPcsAOizU096LLQh fGdsKwWufQPzJ5pzosMB JS7pAcmxwAT+PHRkIHN0 sZulKToqQNCkqN4j ELJwW6z7YkRiJfC1QHfn Y0ZkiaA9QNApmWQoJRCg gRHOxU0ayfpmv0qccfjw UfHbDDDjWAk5IVj5 YXYpiVsnMwQkNZP3ZjP5 IPW9rDWvnV1ekFlkxqoh sQ8pGiv+RklOOjwvdGQ+ TXEkBYZ8kFrnBZog OVFfrK5nSFVoV2g9MqLr LsO1QNsjW5QgsfB8RCPb sJPmWHTndJQSlI1elqwk y6sziemgMgEnGWZr KBo6PXq5ZUZnhLmqRaXp XCM5TsK3MYG9qQRpyJ0w uNwynqhutG3jBxo+TVJO OjwvdGQ+PHRkIHN0 bWbuHDxwODGmvK3lCKSg T3a9OpCxEcW4YKcuD8Nf lpQ0AOCauYGnXSEwbHFV xI0rgumit8fptmek PoPaEMYkYMe2KGt6TIOt gTqeYuDlSNP2QsL7OKG5 rMMvfO9omYurezjjlD3q Oyc+TTI9VXS3UB51 HK72J3SeJgmktXIafTM+ PHRhYmxlIHdpZHRoPScx YLKgVqIpfFgcMO3jBd9u ZGVyLWNvbGxhcHNl OiBj (more content not included)... Normal [facility] Auto Diffon 08-24-2020 Basophils/100 WBC (Bld) 1.0 % Normal 0.0-2.[address] [facility] Comment on above: Order Comment: Order Added by Discern Expert. Performed By: #### 1 [id number], 6939705, 9182243, 85242810, 5942700, 9052749, 07767029, 92180494 ####[facility] [address] [place] [address] Basophils/Leukocytes Auto (Bld) [Pure # fraction] 0.1 E9/L Normal 0.0-0.2 [facility] Comment on above: Order Comment: Order Added by Discern Expert. Performed By: #### 1 4308333, 5220223, 7970191, 53747861, 9880046, 7001229, 30641282, 78083287 ####[facility] [address] [place] [address] Eosinophils/100 WBC (Bld) 2.5 % Normal 0.0-8.0 [facility] Comment on above: Order Comment: Order Added by Discern Expert. Performed By: #### 1 9215344, 0766180, 9339531, 55410688, 9105762, 5221382, 71717845, 56043417 ####[facility] [address] [place] [address] Eosinophils/Leukocytes Auto (Bld) [Pure # fraction] 0.3 E9/L Normal 0.0-0.5 [facility] Comment on above: Order Comment: Order Added by Discern Expert. Performed By: #### 1 4733069, 4598854, 7534036, 83183064, 5080530, 5075411, 99715975, 16715953 ####[address] [place] [address] Lymphocytes/100 WBC (Bld) 21.0 % Normal 14.0-50.0 [facility] Comment on above: Order Comment: Order Added by Discern Expert. Performed By: #### 1 4474826, 2431063, 4748459, 29842556, 1544243, 8111203, 33291322, 72230402 ####[address] [address] Lymphocytes/Leukocytes Auto (Bld) [Pure # fraction] 2.1 E9/L Normal 1.0-4.0 [facility] Comment on above: Order Comment: Order Added by Crystal Expert. Performed By: #### 1 9406474, 0300730, 8963398, 76950858, 3682234, 0616032, 47181595, 94562811 ####[address] [address] Monocytes/100 WBC (Bld) 6.2 % Normal 4.0-14.[address] [facility] Comment on above: Order Comment: Order Added by Discern Expert. Performed By: #### 1 7711267, 2333147, 5436536, 16596957, 4421102, 7131866, 87250782, 96037832 ####[address] [place] [address] Monocytes/Leukocytes Auto (Bld) [Pure # fraction] 0.6 E9/L Normal 0.2-1.0 [facility] Comment on above: Order Comment: Order Added by Crystal Expert. Performed By: #### 1 2348865, 3727970, 8858358, 51177864, 3451603, 3528762, 38899022, 84903867 ####[address] [place] [address] Neutrophils/100 WBC (Bld) 69.3 % Normal 36.0-75.0 [facility] Comment on above: Order Comment: Order Added by Discern Expert. Performed By: #### 1 8697386, 6347395, 3565020, 09431780, 0192229, 1877832, 59188699, 89793559 ####[facility] [address] [place] [address] Neutrophils/Leukocytes Auto (Bld) [Pure # fraction] 6.9 E9/L Normal 2.0-7.5 [facility] Comment on above: Order Comment: Order Added by Discern Expert. Performed By: #### 1 4828482, 3473524, 5199114, 68027738, 4452353, 4114987, 83511646, 63738256 ####[address] [place] [address] BMP 08-24-2020 Creatinine [Mass/Vol] 1.1 mg/dL Normal 0.5-1.3 [facility] Comment on above: Performed By: #### 1 7665449, 1508701, 4987822, 39172954, 8982526, 5967510, 21558312, 01542905 ####[facility] [address] [place] [address] Urea nitrogen [Mass/Vol] 19 mg/dL Normal 5-21 [facility] Comment on above: Performed By: #### 1 1700402, 9186193, 6289486, 11493419, 0298845, 6740351, 64346403, 67323652 ####[facility] [address] [place] [address] Urea nitrogen/Creatinine [Mass ratio] 17 No Units Normal 10-20 [facility] Comment on above: Performed By: #### 1 1733212, 1506478, 2934526, 66405634, 7973507, 3290101, 17461856, 59592814 ####[facility] [address] [place] [address] Anion gap [Moles/Vol] 14 mmol/L Normal 6-16 [facility] Comment on above: Performed By: #### 1 9806671, 7911579, 0008099, 50681334, 3012100, 1488531, 06821052, 63326330 ####[facility] [address] [place] [address] Calcium [Mass/Vol] 9.4 mg/dL Normal 8.9-11.1 [facility] Comment on above: Performed By: #### 1 4177893, 5321051, 6551259, 47471526, 4781730, 0180090, 20857914, 67461710 ####[facility] [address] [place] [address] Chloride [Moles/Vol] 94 mmol/L Low 101-[address] [facility] Comment on above: Performed By: #### 1 7667875, 2679046, 8584109, 72201487, 1273288, 1558824, 48457305, 25811974 ####[facility] [address] [place] [address] CO2 [Moles/Vol] 29 mmol/L Normal 21-31 [facility] Comment on above: Performed By: #### 1 2660699, 2540446, 1392456, 72670145, 6080531, 5774438, 28236173, 71517143 ####[facility] [address] [place] [address] Glucose [Mass/Vol] 103 mg/dL Normal 55-199 [facility] Comment on above: Result Comment: If t his glucose result represents a fasting glucose, interpretation should refer to the following reference range: 55-99 mg/dL Performed By: #### 1 8822284, 8989695, 7669186, 71390548, 0481733, 7665860, 66132545, 66653198 ####[facility] [address] [place] [address] Potassium [Moles/Vol] 4.0 mmol/L Normal 3.5-5.3 [facility] Comment on above: Performed By: #### 1 6641448, 1308227, 4255245, 45486469, 0150421, 8433073, 85788468, 36766888 ####[facility] [address] [place] [address] Sodium [Moles/Vol] 133 mmol/L Low 135-145 [facility] Comment on above: Performed By: #### 1 8498059, 6138856, 8634507, 78864659, 2994201, 7542104, 13932002, 88757392 ####[facility] [address] [place] [address] BNPon 08-24-2020 Natriuretic peptide B (Bld) [Mass/Vol] 17 pg/mL Normal 5-80 [facility] Comment on above: Performed By: #### 1 2261077, 7163616, 5862895, 20054092, 9454650, 9264222, 20145170, 48897365 ####[facility] [address] [place] [address] CBC w/ Auto Diffon Erythrocyte distribution width (RBC) [Ratio] 12.9 % Normal 10.9-14.2 [facility] Comment on above: Performed By: #### 1 1054604, 5394412, 6552204, 67606054, 1944119, 1033135, 05115235, 31001855 ####[facility] [address] [place] [address] Hematocrit (Bld) [Volume fraction] 44.4 % Normal 37.7-49.0 [facility] Comment on above: Performed By: #### 1 0422674, 0341875, 9216889, 23828889, 8374859, 0818463, 83329795, 53764152 ####[facility] [address] [place] [address] Hemoglobin (Bld) [Mass/Vol] 15.3 g/dL Normal 13.5-17.5 [facility] Comment on above: Performed By: #### 1 7227096, 1044468, 0502605, 61247111, 0206225, 9773970, 54475920, 54065512 ####[address] [place] [address] MCH (RBC) [Entitic mass] 31.5 pg Normal 27.0-34.0 [facility] Comment on above: Performed By: #### 1 5797125, 9491345, 2923533, 44800553, 1907268, 8847498, 73271641, 30720043 ####[address] [address] MCHC (RBC) [Mass/Vol] 34.4 g/dL Normal 31.4-36.0 [facility] Comment on above: Performed By: #### 1 5824946, 8543436, 8006210, 12457377, 0353862, 6008223, 34072345, 36087299 ####[address] [address] MCV (RBC) [Entitic vol] 91.6 fL Normal 80.0-100.0 F [facility] Comment on above: Performed By: #### 1 4021112, 2236246, 2854058, 33228004, 2721955, 5548857, 49054725, 01737294 ####[address] [address] Platelet mean volume (Bld) [Entitic vol] 8.4 fL Normal 6.4-10.8 [facility] Comment on above: Performed By: #### 1 4971993, 5560918, 8541774, 83363482, 9720582, 5492922, 84928171, 29318297 ####[address] [address] Platelets (Bld) [#/Vol] 289.0 E9/L Normal 150.0-500.0 [facility] Comment on above: Performed By: #### 1 1226577, 5126232, 0616003, 89534932, 0520086, 9782855, 11042497, 99253818 ####[facility] [address] [place] [address] RBC (Bld) [#/Vol] 4.8 E12/L Normal 4.3-5.9 [facility] Comment on above: Performed By: #### 1 4313223, 8037424, 7351380, 26198915, 9950196, 9009195, 12717901, 77573615 ####[facility] [address] [place] [address] WBC corrected for nucl RBC Auto (Bld) [#/Vol] 9.9 E9/L Normal 4.0-11.0 [facility] Comment on above: Performed By: #### 1 4894971, 7001043, 5675604, 24168669, 9629953, 1736138, 36482106, 81639393 ####[facility] [address] [place] [address] CTA Cheston 08-24-2020 CTA Chest Exam Date/Time: [...] amount in ml's: 78 Normal [facility] Consent for Treatmenton 08-07 Consent for Treatment [id number] 10 [id number] #1.00CD:127 Normal [facility] D-Dimeron 08-24-2020 Fibrin D-dimer FEU (PPP) [Mass/Vol] 845 ng/mL Abnormal 215-500 [facility] Comment on above: Result Comment: Resu lts [...] infections Liver cirrhosis Performed By: #### 1 9370906, 4062325, 7524507, 37848439, 6633799, 8271355, 55582597, 00282958 ####[facility] [address] [place] [address] Discharge Instructionson Discharge Instructions [id number] #1.00CD:127 Normal [facility] ED Clinical Summaryon 2020 ED Clinical Summary [id number] ED Clinical Summary Person Information Name: LILIANA MICHAELS/[facility] Age: 55 Years : 1965 Sex: Male Language: Yoruba PCP: SIMONE JEAN BAPTISTE DC Marital Status: Single Phone: [phone] Visit Id: Visit Reason: Rib/trunk pain-swelling; SIDE [...] 08/24/2020 03:27:58 08/24/2020 03:27:58 08/24/2020 03:27:58 ADDRESS: [address] [place] [phone] [facility] DOC NOTES: MEDICAL INFORMATION: Prescriptions Given: New Medications [id number], [address], [place] [phone], [phone] azithromycin (Zithromax TRI-AMIRA 500 mg oral tablet) [...] With: Address: When: SIMONE JEAN BAPTISTE [address] [place] [address] Business (1) In 1 day 08/25/2020 Comments: Patient is advised to follow-up with his primary care physician in 1 to 2 days. He is also advised to come back to the emergency department if symptoms get worse. DIAGNOSIS: 1:Rib pain on left side Normal [facility] ED Note-Physicianon 08-25-19 ED Note-Physician Basic Information [...] date 08/24/20 2:30:00 EDT Rapid COVID Antigen ([facility]) Orders: albuterol-ipratropiu m, 3 mL, Soln-Inh, Inhalation, Once, Stop date 08/24/20 0:16:00 EDT, STAT, Start date 08/24/20 0:16:00 EDT azithromycin, 500 mg = 1 tab(s), Oral, Daily, # 3 tab(s), Refills(s) 0, Pharmacy: [facility] #[id number], 163, cm, 08/24/20 0:04:00 EDT, Height/Length Dosing, 101, kg, 08/24/20 0:04:00 EDT, Weight Dosing famotidine, 20 mg = 1 tab(s), Tab, Oral, Once, Stop date 08/24/20 0:17:00 EDT, STAT, Start date 08/24/20 0:17:00 EDT lidocaine topical, 1 patch(es), Topical, Daily, 7 patch(es), Refill(s) 0, apply 12 hours on and 12 hours off daily, [facility]/pharmacy #[id number], 163, cm, 08/24/20 0:04:00 EDT, Height/Length Dosing, 101, kg, 08/24/20 0:04:00 EDT, Julian (more content not included)... Normal [facility] Comment on above: Result Comment: Elec tronically [...] Document Reviewed: 11/28/2008 ExitCare? Patient Information ?2014 [employer]. This information is not intended to replace advice given to you by your health care provider. Make sure you discuss any questions you have with your health care provider. Normal [facility] ED Patient Summaryon 021 ED Patient Summary [address] [address] Patient Discharge Instructions Person Information Name: LILIANA MICHAELS Age: 55 Years Arrival Date: 08/23/2020 23:48:11 Discharge Diagnosis: 1:Rib pain on left side Primary Care Physician: SIMONE JEAN BAPTISTE DC Provider Information Primary Provider: Pia LANE, David Advanced Collar Starcher:None The exam and treatment you received in the Emergency Department were for an urgent problem and are not intended as complete care. It is important that you follow up with a doctor, nurse practitioner, or physician?s assistant track and field coach for ongoing care. If your symptoms become [...] With: Address: When: SIMONE JEAN BAPTISTE [address] [place] [id number] Business (1) In 1 day 08/25/2020 Comments: [...] opioids can be used to help relieve hxtbrosu-zi-xnbbwf pain and are often prescribed following a [...] (more content not included)... Normal [facility] PT & PTTon 08-24-2020 aPTT Coag (PPP) [Time] 30.2 second(s) Normal 25.1-36.5 [facility] Comment on above: Result Comment: Hepa rin therapeutic range (represented by Anti-Factor Xa activity of 0.2 - 0.4 U/mL) corresponds to PTT of 56.6 - 109.0 sec. Performed By: #### 1 [id number], [id number], [id number], [id number], [id number], [id number], [id number] ####[facility] [address] [place] [address] INR Coag (PPP) [Relative time] 1.0 {INR} Invalid Interpretation Code [facility] Comment on above: Result Comment: INR results are specifically intended to assess patients stabilized on long-term Anticoagulation therapy suggested INR?s ?Less Intensive Anticoagulation? 2.0 ? 3.0 Conventional Range 3.0 ? 4.5 Performed By: #### 1 [id number], [id number], [id number], [id number], 2154178, 3363850, [id number], [id number] ####[facility] [address] [place] [address] PT Coag (PPP) [Time] 11.6 second(s) Normal 10.2-12.9 [facility] Comment on above: Performed By: #### 1 [id number], [id number], 6161774, [id number], 4292550, 5830041, [id number], [id number] ####[facility] [address] [place] [address] RAD - Preliminary Cat Scan R eporton 08-24-2020 RAD - Preliminary Cat Scan Report [id number] Normal [facility] Rapid COVID Antigen ([facility])on 08-24-2020 Rapid COV Int NEG Ctl Pass Normal [facility] Comment on above: Performed By: #### 2 [id number] ####[facility] [address] [place] [address] Rapid COV Int POS Ctl Pass Normal [facility] Comment on above: Performed By: #### 2 [id number] ####[facility] [address] [place] [address] SARS-CoV-2 (COVID-19) RNA KATT+probe Ql (Unsp spec) Not detected Normal Not Detected [facility] Comment on above: Result Comment: The [employer]? System for Rapid Detection of SARS-CoV-2 is [...] For in vitro diagnostic use. In the [facility], only for use under an [...] or revoked sooner. Performed By: #### 2 [id number] ####[address] [address] Employed in Healthcare NO Normal [facility] Comment on above: Performed By: #### 2 [id number] ####[place] [address] [facility] [place] [address] First Test Unknown Normal [facility] Comment on above: Performed By: #### 2 [id number] ####[address] [place] [address] Hospitalized? NO Normal [facility] Comment on above: Performed By: #### 2 [id number] ####[address] [place] [address] ICU NO Normal [facility] Comment on above: Performed By: #### 2 [id number] ####[place] [address] [facility] [place] [address] ? NO Normal [facility] Comment on above: Performed By: #### 2 [id number] ####[address] [place] [address] Resides in a Congregate Care Setting NO Normal [facility] Comment on above: Performed By: #### 2 [id number] ####[place] [address] [facility] [place] [address] Symptomatic as defined by CDC YES Normal [facility] [place] Comment on above: Performed By: #### 2 [id number] ####[address] [address] Troponin 0 Hr.on 08-24-2020 Troponin I.cardiac [Mass/Vol] 4.10 pg/mL Low 15.90-38.40 [facility] [place] Comment on above: Result Comment: The 95% CI (Confidence Interval) PPV (Positive Predictive Value) for myocardial infarction in females is 38 pg/mL, in males 51 pg/mL. The results should be used in conjunction with clinical conditions of myocardial infarction. ([place] High Sensitivity Troponin I Instructions For Use, [employer], December 2017) Performed By: #### 1 [id number], [id number], [id number], [id number], [id number], [id number] ####[facility] [address] [place] [address] Troponin 3 Hr.on 08-24-2020 Troponin I.cardiac [Mass/Vol] 4.40 pg/mL Low 15.90-38.40 [facility] Comment on above: Result Comment: The 95% CI (Confidence Interval) PPV (Positive Predictive Value) for myocardial infarction in females is 38 pg/mL, in males 51 pg/mL. The results should be used in conjunction with clinical conditions of myocardial infarction. ([place] High Sensitivity Troponin I Instructions For Use, [employer], December 2017) Performed By: #### 1 [id number] ####[facility] [address] [place] [address] XR Chest Single Viewon 08-24 XR Chest [...] by: VIVIAN Technologist: DAT Normal [facility] eGFRon 08-24-2020 GFR/1.73 sq M.predicted among blacks MDRD (S/P/Bld) [Vol rate/Area] mL/min/{1.73_m2} Normal >=59 [facility] Comment on above: Order Comment: Order added by Discern Expert. Result Comment: eGFR is race adjusted. AA=. Performed By: #### 1 [id number], [id number], [id number], [id number], [id number], [id number], [id number] ####[facility] [address] [place] [address] GFR/1.73 sq M.predicted among non-blacks MDRD (S/P/Bld) [Vol rate/Area] mL/min/{1.73_m2} Normal >=59 [facility] Comment on above: Order Comment: Order added by Discern Expert. Result Comment: Independent Producer jeniffer kidney disease could be indicated at eGFR's of less than 60 mL/min/1.73m2. Kidney failure is indicated at less than 15 mL/min/1.73m2. Performed By: #### 1 [id number], [id number], [id number], [id number], [id number], [id number], [id number], [id number] ####[facility] [address] [place] [address] HIP RIGHT 1 OR 2 VWS WITH PE LVISon 07-24-2020 HIP RIGHT 1 OR 2 VWS WITH PELVIS [facility] Department of Radiology [address] [place] [id number] Patient Name: LILIANA MICHAELS : 1965 [...] Electronically signed: Ana M Mariee. Transcribed by: [email or web address], User Resident: Electronically Signed by: ANA M MARIEE @ 07/24/2020 10:01 AM Normal The [facility] Comment on above: Order Comment: Views (X-RAY, HIP): Radiologic Protocol HIP RIGHT 1 OR 2 VWS WITH PE LVISon 04-24-2020 HIP RIGHT 1 OR 2 VWS WITH PELVIS [facility] Department of Radiology [address] [place] [id number] Patient Name: LILIANA MICHAELS : 1965 [...] abnormality. Electronically signed: Ed España. Transcribed by: [email or web address], User Resident: Electronically Signed by: ED ESPAÑA @ 04/25/2020 08:22 AM Normal The [facility] Comment on above: Order Comment: Views (X-RAY, HIP): Radiologic Protocol Operative Reporton 0 Operative Report MR#: [id number] [facility] Pt. Name: Liliana Michaels Room #: [id number] Discharge 03/15/2020 Date: Birthdate: 1965 OPERATIVE REPORT [...] a (more content not included)... Normal The [facility] BASIC METABOLIC PANELon 11-0 -2019 Calcium [Mass/Vol] 8.8 mg/dL Normal 8.6-10.3 The [facility] Comment on above: Order Comment: Views (X-RAY, HIP): Radiologic Protocol Performed By: #### 0 0071 ####[facility] [place] [address], [facility] Chloride [Moles/Vol] 98 mmol/L Normal 98-107 The [facility] Comment on above: Order Comment: Views (X-RAY, HIP): Radiologic Protocol Performed By: #### 0 0071 ####[facility] [place] [address], [facility] CO2 [Moles/Vol] 30 mmol/L Normal 21-31 The [facility] Comment on above: Order Comment: Views (X-RAY, HIP): Radiologic Protocol Performed By: #### 0 0071 ####[facility] [facility] [place] [address], [facility] Creatinine [Mass/Vol] 0.96 mg/dL Normal 0.70-1.30 The [facility] Comment on above: Order Comment: Views (X-RAY, HIP): Radiologic Protocol Performed By: #### 0 0071 ####[facility] [facility] [place] [address], [facility] GFR/1.73 sq M.predicted among blacks MDRD (S/P/Bld) [Vol rate/Area] mL/min/{1.73_m2} Normal >60 The [facility] Comment on above: Order Comment: Views (X-RAY, HIP): Radiologic Protocol Performed By: #### 0 0071 ####[facility] [facility] [address], [facility] GFR/1.73 sq M.predicted among non-blacks MDRD (S/P/Bld) [Vol rate/Area] mL/min/{1.73_m2} Normal >60 The [facility] Comment on above: Order Comment: Views (X-RAY, HIP): Radiologic Protocol Performed By: #### 0 0071 ####[facility] [facility] [place] [address], [facility] Glucose [Mass/Vol] 151 mg/dL High 70-100 The [facility] Comment on above: Order Comment: Views (X-RAY, HIP): Radiologic Protocol Performed By: #### 0 0071 ####[facility] [facility] [place] [address], [place] Potassium [Moles/Vol] 4.4 mmol/L Normal 3.5-5.1 The [facility] Comment on above: Order Comment: Views (X-RAY, HIP): Radiologic Protocol Performed By: #### 0 0071 ####[facility] [place] [address], [place] Sodium [Moles/Vol] 133 mmol/L Low 136-145 The [facility] Comment on above: Order Comment: Views (X-RAY, HIP): Radiologic Protocol Performed By: #### 0 0071 ####[facility] [place] [address], [facility] Urea nitrogen [Mass/Vol] 20 mg/dL Normal 7-25 The [facility] Comment on above: Order Comment: Views (X-RAY, HIP): Radiologic Protocol Performed By: #### 0 0071 ####[facility] [place] [address], [facility] CBC COMPLETE BLOOD COUNTon 05-15-2019 Erythrocyte distribution width (RBC) [Ratio] 12.2 % Normal 11.5-15.0 The [facility] Comment on above: Order Comment: No: D o not add to previous draw Performed By: #### 5 0608 #### [facility] [address] [place] [id number], [facility] Hematocrit (Bld) [Volume fraction] 42.2 % Normal 39.0-50.0 The [facility] Comment on above: Order Comment: No: D o not add to previous draw Performed By: #### 5 0608 #### [facility] [address] [place] [address], [facility] Hemoglobin (Bld) [Mass/Vol] 13.9 g/dL Normal 13.0-17.0 The [facility] Comment on above: Order Comment: No: D o not add to previous draw Performed By: #### 5 0608 #### [facility] [address] [place] [address], [place] MCH (RBC) [Entitic mass] 31.4 pg Normal 27.0-33.0 The [facility] Comment on above: Order Comment: No: D o not add to previous draw Performed By: #### 5 0608 #### [facility] [address] [place], [place] [address] [place] [address] MCHC (RBC) [Mass/Vol] 32.9 g/dL Normal 32.0-35.0 The [facility] Comment on above: Order Comment: No: D o not add to previous draw Performed By: #### 5 0608 #### [facility] [address] [place] [address], [facility] MCV (RBC) [Entitic vol] 95.5 fL Normal 82.0-98.0 T he [facility] Comment on above: Order Comment: No: D o not add to previous draw Performed By: #### 5 0608 #### [facility] [address] [facility] [place] [address], [facility] Nucleated RBC/100 WBC (Bld) [Ratio] 0 % Normal 0-0 The [facility] Comment on above: Order Comment: No: D o not add to previous draw Performed By: #### 5 0608 #### [facility] [address] [place] [address], [facility] PLAT CNT 254 10*3/uL Normal 150-400 The [facility] Comment on above: Order Comment: No: D o not add to previous draw Performed By: #### 5 0608 #### [facility] [address] [facility] [address], [facility] RBC (Bld) [#/Vol] 4.42 10*6/uL Normal 4.20-5.70 The [facility] Comment on above: Order Comment: No: D o not add to previous draw Performed By: #### 5 0608 #### [facility] [address] [facility] [place] [id number], [facility] WBC (Bld) [#/Vol] 14.44 10*3/uL High 4.00-10.60 The [facility] Comment on above: Order Comment: No: D o not add to previous draw Performed By: #### 5 0608 #### [facility] [address] [place] [address], [facility] POC GLUCOSE LABon 03-15-2020 Glucose [Mass/Vol] 193 mg/dL High 70-100 The [facility] Comment on above: Performed By: #### 8 5499 #### [facility] [address] CBC W/DIFFon 03-14-2020 ABS IMM GRANS 0.2 10*3/uL Normal 0.0-0.2 The [facility] Comment on above: Performed By: #### 5 0103 ####[facility] ABS NEUTROPHILS 8.0 10*3/uL High 1.6-7.6 The [facility] Comment on above: Performed By: #### 5 0103 ####[facility] Basophils (Bld) [#/Vol] 0.1 10*3/uL Normal 0.0-0.2 The [facility] Comment on above: Performed By: #### 5 0103 ####[facility] [place] [address], [facility] Basophils/100 WBC (Bld) 1.1 % High 0.0-1.0 T he [facility] Comment on above: Performed By: #### 5 0103 ####[facility] [facility] [address], [facility] Eosinophils (Bld) [#/Vol] 0.3 10*3/uL Normal 0.0-0.5 The [facility] Comment on above: Performed By: #### 5 0103 ####[facility] [place] [address], [facility] Eosinophils/100 WBC (Bld) 2.7 % Normal 0.0-6.0 The [facility] Comment on above: Performed By: #### 5 0103 ####[facility] [place] [address], [place] Erythrocyte distribution width (RBC) [Ratio] 12.3 % Normal 11.5-15.0 The [facility] Comment on above: Performed By: #### 5 0103 ####[facility] Hematocrit (Bld) [Volume fraction] 50.5 % High 39.0-50.0 The [facility] Comment on above: Performed By: #### 5 0103 ####[facility] Hemoglobin (Bld) [Mass/Vol] 17.3 g/dL High 13.0-17.0 The [facility] Comment on above: Performed By: #### 5 3 ####[address] IMMATURE GRANS 1.4 % High 0.0-1.0 The [facility] Comment on above: Performed By: #### 5 3 ####[place] [address] Lymphocytes (Bld) [#/Vol] 1.8 10*3/uL Normal 1.2-4.0 The [facility] Comment on above: Performed By: #### 5 3 ####[place] [address] Lymphocytes/100 WBC (Bld) 15.6 % Low 20.0-45.0 The [facility] Comment on above: Performed By: #### 5 3 ####[place] [address] MCH (RBC) [Entitic mass] 31.7 pg Normal 27.0-33.0 The [facility] Comment on above: Performed By: #### 5 3 ####[facility] [place] [address], [facility] MCHC (RBC) [Mass/Vol] 34.3 g/dL Normal 32.0-35.0 The [facility] Comment on above: Performed By: #### 5 0103 ####[facility] [facility] [address], [facility] MCV (RBC) [Entitic vol] 92.7 fL Normal 82.0-98.0 T he [facility] Comment on above: Performed By: #### 5 0103 ####[facility] [facility] [address], [facility] Monocytes (Bld) [#/Vol] 0.9 10*3/uL Normal 0.1-1.0 The [facility] Comment on above: Performed By: #### 5 0103 ####[facility] [facility] MONOS 8.2 % Normal 5.0-12.0 The [facility] Comment on above: Performed By: #### 5 0103 ####[facility] [facility] Neutrophils/100 WBC (Bld) 71.0 % Normal 40.0-72.0 The [facility] Comment on above: Performed By: #### 5 3 ####[facility] [facility].[address] Nucleated RBC/100 WBC (Bld) [Ratio] 0 % Normal 0-0 The [facility] Comment on above: Performed By: #### 5 0103 ####[facility] [facility] [place] [address], [facility] PLAT CNT 301 10*3/uL Normal 150-400 The [facility] Comment on above: Performed By: #### 5 0103 ####[facility] [place] [address], [facility] RBC (Bld) [#/Vol] 5.45 10*6/uL Normal 4.20-5.70 The [facility] Comment on above: Performed By: #### 5 0103 ####[facility] WBC (Bld) [#/Vol] 11.22 10*3/uL High 4.00-10.60 The [facility] Comment on above: Performed By: #### 5 0103 ####[facility] HIP RIGHT 1 OR 2 VWS WITH PE LVISon 03-14-2020 HIP RIGHT 1 OR 2 VWS WITH PELVIS [facility] Department of Radiology [address] [place] [id number] Patient Name: LILIANA MICHAELS : 1965 [...] purposes Electronically signed: Aria Steinberg. Transcribed by: [email or web address], User Resident: Electronically Signed by: ARIA STEINBERG @ 03/14/2020 03:44 PM Normal The [facility] Comment on above: Order Comment: RT TH A POC GLUCOSE LABon 03-14-2020 Glucose [Mass/Vol] 222 mg/dL High 70-100 The [facility] Comment on above: Performed By: #### 8 5499 #### [facility] [address] [place] [address], [facility] Glucose [Mass/Vol] 217 mg/dL High 70-100 The [facility] Comment on above: Performed By: #### 8 5499 ####[facility] [facility] [address], [facility] Glucose [Mass/Vol] 141 mg/dL High 70-100 The [facility] Comment on above: Performed By: #### 8 5499 #### [facility] [address] [place] [address], [facility] PORTABLE HIP RIGHT 1 OR 2 VW S WITH PELVISon 03-14-2020 PORTABLE HIP RIGHT 1 OR 2 VWS WITH PELVIS [facility] Department of Radiology [address] [place] [address] Patient Name: LILIANA MICHALES : 1965 Sex: M Age: Race: White [...] air Electronically signed: Aria Steinberg. Transcribed by: [email or web address], User Resident: Electronically Signed by: ARIA STEINBERG @ 03/14/2020 03:46 PM Normal The [facility] Comment on above: Order Comment: Hardw are Evaluation, AP/Lateral TYPE AND SCREENon 03-14-2020 ABO INTERPRETATION O Normal The [facility] Comment on above: Performed By: #### 6 2586 ####[facility] [place] [address], [place] RH INTERPRETATION Positive Normal The [facility] Comment on above: Performed By: #### 6 2586 ####[facility] [place] [address], [place] Vital Signs Date Time Vital Sign Value Performing Clinician Facility 05-23-2024 08:30-0500 Body height 162.6 cm Amador Son MD Work Phone: [facility] 05-23-2024 08:30-0500 Body mass index (BMI) [Ratio] 37.76 kg/m2 Amador Son MD Work Phone: [facility] 05-23-2024 08:30-0500 Body weight 99.79 kg Amador Son MD Work Phone: [facility] 05-23-2024 08:30-0500 Diastolic blood pressure 78 mm[Hg] Amador Son MD Work Phone: [facility] 05-23-2024 08:30-0500 Heart rate 74 /min Amador Son MD Work Phone: [facility] 05-23-2024 08:30-0500 Systolic blood pressure 118 mm[Hg] Amador Son MD Work Phone: [facility] 04-24-2024 11:05-0500 Body height 162.6 cm Ishmael Simon MD Work Phone: [facility] 04-24-2024 11:05-0500 Body mass index (BMI) [Ratio] 37.76 kg/m2 Ishmael Simon MD Work Phone: [facility] 04-24-2024 11:05-0500 Body temperature 97.81 [degF] Ishmael Simon MD Work Phone: [facility] 04-24-2024 11:05-0500 Body weight 99.79 kg Ishmael Simon MD Work Phone: [facility] 04-24-2024 11:05-0500 Diastolic blood pressure 68 mm[Hg] Ishmael Simon MD Work Phone: [facility] 04-24-2024 11:05-0500 Heart rate 88 /min Ishmael Simon MD Work Phone: [facility] 04-24-2024 11:05-0500 Respiratory rate 18 /min Ishmael Simon MD Work Phone: [facility] 04-24-2024 11:05-0500 SaO2% (BldA) [Mass fraction] 95 % Ishmael Simon MD Work Phone: [facility] 04-24-2024 11:05-0500 Systolic blood pressure 116 mm[Hg] Ishmael Simon MD Work Phone: [facility] 02-06-2024 13:14-0400 Body height 162.6 cm Ishmael Simon MD Work Phone: [facility] 02-06-2024 13:14-0400 Body mass index (BMI) [Ratio] 37.25 kg/m2 Ishmael Simon MD Work Phone: [facility] 02-06-2024 13:14-0400 Body temperature 97.5 [degF] Ishmael Simon MD Work Phone: [facility] 02-06-2024 13:14-0400 Body weight 98.43 kg Ishmael Simon MD Work Phone: [facility] 02-06-2024 13:14-0400 Diastolic blood pressure 72 mm[Hg] Ishmael Simon MD Work Phone: [facility] 02-06-2024 13:14-0400 Heart rate 84 /min Ishmael Simon MD Work Phone: [facility] 02-06-2024 13:14-0400 Respiratory rate 20 /min Ishmael Simon MD Work Phone: [facility] 02-06-2024 13:14-0400 SaO2% (BldA) [Mass fraction] 97 % Ishmael Simon MD Work Phone: [facility] 02-06-2024 13:14-0400 Systolic blood pressure 134 mm[Hg] Ishmael Simon MD Work Phone: [facility] 01-13-2024 09:29-0400 Body height 162.6 cm Ishmael Simon MD Work Phone: [facility] 01-13-2024 09:29-0400 Body mass index (BMI) [Ratio] 36.39 kg/m2 Ishmael Simon MD Work Phone: [facility] 01-13-2024 09:29-0400 Body temperature 97.5 [degF] Ishmael Simon MD Work Phone: [facility] 01-13-2024 09:29-0400 Body weight 96.16 kg Ishmael Simon MD Work Phone: [facility] 01-13-2024 09:29-0400 Diastolic blood pressure 70 mm[Hg] Ishmael Simon MD Work Phone: [facility] 01-13-2024 09:29-0400 Heart rate 91 /min Ishmael Simon MD Work Phone: [facility] 01-13-2024 09:29-0400 Respiratory rate 18 /min Ishmael Simon MD Work Phone: [facility] 01-13-2024 09:29-0400 SaO2% (BldA) [Mass fraction] 97 % Ishmael Simon MD Work Phone: [facility] 01-13-2024 09:29-0400 Systolic blood pressure 120 mm[Hg] Ishmael Simon MD Work Phone: [facility] 11-09-2023 10:10-0400 Body height 162.6 cm Naima Wright IMPORT/EXPORT ADMINISTRATOR-ANIMAL PATHOLOGIST Work Phone: [facility] 11-09-2023 10:10-0400 Body mass index (BMI) [Ratio] 35.27 kg/m2 Naima Wright IMPORT/EXPORT ADMINISTRATOR-ANIMAL PATHOLOGIST Work Phone: [facility] 11-09-2023 10:10-0400 Body weight 93.21 kg Naima Wright IMPORT/EXPORT ADMINISTRATOR-ANIMAL PATHOLOGIST Work Phone: [facility] 11-09-2023 10:10-0400 Diastolic blood pressure 66 mm[Hg] Naima Wright IMPORT/EXPORT ADMINISTRATOR-ANIMAL PATHOLOGIST Work Phone: [facility] 11-09-2023 10:10-0400 Heart rate 68 /min Naima Wright IMPORT/EXPORT ADMINISTRATOR-ANIMAL PATHOLOGIST Work Phone: [facility] 11-09-2023 10:10-0400 Systolic blood pressure 98 mm[Hg] Naima Wright IMPORT/EXPORT ADMINISTRATOR-ANIMAL PATHOLOGIST Work Phone: [facility] 08-10-2023 13:31-0400 Body height 162.6 cm Amador Son MD Work Phone: [facility] 08-10-2023 13:31-0400 Body mass index (BMI) [Ratio] 34.67 kg/m2 Amador Son MD Work Phone: [facility] 08-10-2023 13:31-0400 Body weight 91.63 kg Amador Son MD Work Phone: [facility] 08-10-2023 13:31-0400 Diastolic blood pressure 70 mm[Hg] Amador Son MD Work Phone: [facility] 08-10-2023 13:31-0400 Heart rate 69 /min Amador Son MD Work Phone: [facility] 08-10-2023 13:31-0400 Systolic blood pressure 116 mm[Hg] Amador Son MD Work Phone: [facility] 08-05-2023 17:30-0400 Diastolic blood pressure 67 mm[Hg] Amador Son MD Work Phone: [facility] 08-05-2023 17:30-0400 Heart rate 60 /min Amador Son MD Work Phone: [facility] 08-05-2023 17:30-0400 Respiratory rate 16 /min Amador Son MD Work Phone: [facility] 08-05-2023 17:30-0400 SaO2% (BldA) [Mass fraction] 96 % Amador Son MD Work Phone: [facility] 08-05-2023 17:30-0400 Systolic blood pressure 112 mm[Hg] Amador Son MD Work Phone: [facility] 08-05-2023 12:13-0400 Body height 162.6 cm Amador Son MD Work Phone: [facility] 08-05-2023 12:13-0400 Body mass index (BMI) [Ratio] 34.17 kg/m2 Amador Son MD Work Phone: [facility] 08-05-2023 12:13-0400 Body temperature 97.5 [degF] Amador Son MD Work Phone: [facility] 08-05-2023 12:13-0400 Body weight 90.3 kg Amador Son MD Work Phone: [facility] 07-22-2023 14:38-0400 Body height 162.6 cm Amador Son MD Work Phone: [facility] 07-22-2023 14:38-0400 Body mass index (BMI) [Ratio] 34.33 kg/m2 Amador Son MD Work Phone: [facility] 07-22-2023 14:38-0400 Body weight 90.72 kg Amador Son MD Work Phone: [facility] 07-22-2023 14:38-0400 Diastolic blood pressure 90 mm[Hg] Amador Son MD Work Phone: [facility] 07-22-2023 14:38-0400 Heart rate 41 /min Amador Son MD Work Phone: [facility] 07-22-2023 14:38-0400 Systolic blood pressure 138 mm[Hg] Amador Son MD Work Phone: [facility] 07-14-2022 10:57-0500 Body height 162.56 cm Ishmael Simon Work Phone: [facility] 600 DO Work Phone: 07-14-2022 10:57-0500 Body mass index (BMI) [Ratio] 32.96 kg/m2 Ishmael A Naderer Work Phone: [employer] 600 DO Work Phone: 07-14-2022 10:57-0500 Body surface area Derived from formula 1.92 m2 Ishmael A Naderer Work Phone: [employer] [employer] 600 DO Work Phone: 07-14-2022 10:57-0500 Body weight 87.09 kg Ishmael A Naderer Work Phone: [employer] [employer] 600 DO Work Phone: 07-14-2022 10:57-0500 Diastolic blood pressure 64 mm[Hg] Ishmael A Naderer Work Phone: [facility] [employer] 600 DO Work Phone: 07-14-2022 10:57-0500 Heart rate 34 /min Ishmael A Naderer Work Phone: [facility] [employer] 600 DO Work Phone: 07-14-2022 10:57-0500 Systolic blood pressure 118 mm[Hg] Ishmael A Naderer Work Phone: [facility] 600 DO Work Phone: 01-28-2022 09:37-0400 Body height 162.56 cm Ishmael A Naderer Work Phone: [facility] 600 DO Work Phone: 01-28-2022 09:37-0400 Body mass index (BMI) [Ratio] 30.9 kg/m2 Ishmael A Naderer Work Phone: [facility] 600 DO Work Phone: 01-28-2022 09:37-0400 Body surface area Derived from formula 1.87 m2 Ishmael A Naderer Work Phone: [facility] [employer] 600 DO Work Phone: 01-28-2022 09:37-0400 Body weight 81.65 kg Ishmael Carterr Work Phone: [facility] 600 DO Work Phone: 01-28-2022 09:37-0400 Diastolic blood pressure 50 mm[Hg] Ishmael Rae Raulr Work Phone: [facility] [employer] [employer] 600 DO Work Phone: 01-28-2022 09:37-0400 Heart rate 41 /min Ishmael Simon Work Phone: [facility] 600 DO Work Phone: 01-28-2022 09:37-0400 Systolic blood pressure 112 mm[Hg] Ishmael Rae Alfred Work Phone: [facility] DO Work Phone: Encounters Encounter Date Encounter Type Care Provider Facility Start: 05-23-2024 End: 05-23-2024 Office outpatient visit 25 minutes Amador Son MD Work Phone: [facility] Comment on above: Cardiac pacemaker in situ (Primary Dx); Sick sinus syndrome (Multi); MRI safe cardiac pacemaker in situ; Abnormal EKG; Chronotropic incompetence; Sinoatrial node dysfunction (Multi); Sinus bradycardia; Current smoker; BMI 37.0-37.9, adult Start: 05-23-2024 End: 05-23-2024 Subsequent hospital visit by physician [facility] Comment on above: Sinus bradycardia; Sick sinus syndrome (Multi); Chronotropic incompetence; MRI safe cardiac pacemaker in situ Start: 05-23-2024 End: 05-23-2024 ambulatory AMADOR SON [facility] Start: 04-27-2024 End: 04-27-2024 Red Simon MD Work Phone: [facility] Comment on above: Degeneration of lumb ar intervertebral disc Start: 04-24-2024 End: 04-24-2024 Bamboo flowsheet Ishmael Simon MD Work Phone: [facility] Start: 04-24-2024 End: 04-24-2024 Bamboo flowsheet Ishmael Simon MD Work Phone: [facility] Start: 04-24-2024 End: 04-24-2024 Clinisync Result Encounter Ishmael Simon MD Work Phone: [facility] External Department Unsolicited Start: 04-24-2024 End: 04-24-2024 Patient encounter procedure Ishmael Simon MD Work Phone: [facility] Healthcare Work Phone: Start: 04-24-2024 End: 04-24-2024 Postop follow up visit related to original px Ishmael Simon MD Work Phone: [facility] Comment on above: Medicare annual well ness visit, subsequent (Primary Dx); Type 2 diabetes mellitus with hyperglycemia, without long-term current use of insulin ([facility]/HCC); Essential hypertension, benign (CMS/HCC); Class 2 severe obesity due to excess calories with serious comorbidity and body mass index (BMI) of 37.0 to 37.9 in adult (CMS/HCC) Start: 04-24-2024 End: 04-24-2024 ambulatory ISHMAEL SIMON Not Available Start: 04-16-2024 End: 04-16-2024 ambulatory Jong Reyes MD Facility: [facility] Start: 03-30-2024 End: 03-30-2024 Refill Ishmael Simon MD Work Phone: [facility] Comment on above: Degeneration of lumb ar intervertebral disc Start: 03-27-2024 End: 03-27-2024 Patient encounter procedure Ishmael Simon MD Work Phone: [facility] [place] Work Phone: Start: 03-27-2024 End: 03-27-2024 ambulatory Ishmael Simon MD Work Phone: [facility] Work Phone: Start: 03-16-2024 End: 03-16-2024 ambulatory Danielle Bergeron Facility:[facility] Start: 03-16-2024 Non-patient / Non-visit [facility] Start: 03-01-2024 End: 03-01-2024 Refill Ishmael Simon MD Work Phone: [facility] Comment on above: Degeneration of lumb ar intervertebral disc Start: 02-14-2024 End: 02-14-2024 ambulatory [facility] Start: 02-14-2024 End: 02-14-2024 Subsequent hospital visit by physician [facility] Comment on above: Cardiac pacemaker in [...] intervertebral disc Start: 01-25-2024 End: 01-25-2024 ambulatory [facility] Start: 01-25-2024 End: 01-25-2024 Subsequent hospital visit by physician Varsha Restrepo [facility] Comment on above: Cardiac [...] intervertebral disc Start: 12-01-2023 End: 12-01-2023 ambulatory [facility] Ambulatory Start: 11-09-2023 End: 11-09-2023 Office outpatient visit 40 minutes Naima MURILLO Work Phone: [facility] Comment on above: MRI safe cardiac pac [...] by physician [facility] Comment on above: Pacemaker Start: 11-09-2023 End: 11-09-2023 [facility] Start: 10-10-2023 End: 10-10-2023 [facility] Start: 09-26-2023 End: 09-26-2023 ambulatory AMADOR SON [facility] Start: 09-26-2023 End: 09-26-2023 Subsequent hospital visit by physician [facility] Comment on above: Cardiac pacemaker in situ; Sinoatrial node dysfunction (Multi) Start: 08-12-2023 End: 08-12-2023 ambulatory [facility] Start: 08-10-2023 End: 08-10-2023 Subsequent hospital visit by physician [facility] Comment on above: Localized swelling o n left hand; S/P placement of cardiac pacemaker Start: 08-10-2023 End: 08-10-2023 ambulatory AMADOR SON [facility] Start: 08-10-2023 End: 08-10-2023 Office outpatient visit 25 minutes Amador Son MD Work Phone: [facility] Comment on above: Chronotropic incompe tence (Primary Dx); Abnormal stress test; Sinus bradycardia; Sick sinus syndrome (CMS/HCC); Essential hypertension, benign; BMI 34.0-34.9,adult; Current smoker Start: 08-05-2023 End: 08-05-2023 Subsequent hospital visit by physician Amador Son MD Work Phone: [facility] Comment on above: Sinus bradycardia (P rimary Dx); Chronotropic incompetence; Sick sinus syndrome (CMS/HCC); Other fatigue; Abnormal stress test; Dyspnea; Pacemaker Start: 07-22-2023 End: 07-22-2023 ambulatory [facility] Ambulatory Start: 07-22-2023 End: 07-22-2023 Encounter for preprocedural cardiovascular examination [facility] Ambulatory Start: 07-22-2023 End: 07-22-2023 Office outpatient new 60 minutes Amador Son MD Work Phone: [facility] Comment on above: Chronotropic incompe tence (Primary Dx); Sinus bradycardia; Establishing care with new doctor, encounter for; BMI 34.0-34.9,adult; Sick sinus syndrome (CMS/HCC); Simple chronic bronchitis (CMS/HCC); Current smoker; Other fatigue; Preoperative cardiovascular examination Start: 07-22-2023 End: 07-22-2023 Patient encounter status Amador Son MD Work Phone: [facility] Work Phone: Start: 07-13-2023 End: 07-13-2023 ambulatory [facility] Ambulatory Start: 07-13-2023 End: 07-13-2023 ambulatory [facility] Ambulatory Start: 10-14-2022 ambulatory NARENDRANATH LAKSHMIPATHY . [...] sit 15 minutes Ishmael Simon Work Phone: [facility] 600 DO Work Phone: Start: 07-14-2022 [...] 02-16-2022 Chart Update Ishmael Simon Work Phone: [facility] 250 DO Work Phone: Start: 02-15-[address] Valentino Ty Facility:44 Start: 01-28-[address] Ishmael Simon Facility: Start: 01-28-2022 Office consultation new/estab patient 60 min Ishmael Simon Work Phone: [facility] 600 DO Work Phone: Start: 01-14-2022 End: 01-15-2022 ambulatory TERESO COLMENARES . Facility:[facility] Start: 01-01-2022 End: 01-02-[address] ISHMAEL SIMON Facility:[facility] Start: 12-15-2021 End: 12-15-[address] RICKY IBARRA . Facility:[facility] Start: 12-14-2021 Encounter for preprocedural laboratory examination DR RICKY IBARRA . [facility] Start: 12-12-2021 End: 12-13-[address] ISHMAEL SIMON Facility:[facility] Start: 12-12-2021 End: 12-13-2021 Encounter for preprocedural laboratory examination DR ISHMAEL SIMON Facility:[facility] Start: 12-08-2021 End: 12-08-[address] RICKY IBARRA . Facility: Start: 12-04-2021 End: 12-05-[address] ISHMAEL SIMON Facility: Start: 11-19-2021 End: 11-20-2021 ambulatory TERESO COLMENARES . Facility: Start: 11-03-2021 End: 11-03-[address] RICKY IBARAR . Facility:[facility] Start: 10-22-2021 End: 10-23-[address] RICKY IBARRA . Facility:[facility] Start: 10-13-2021 End: 10-13-[address] RICKY IBARRA . Facility: Start: 10-01-2021 End: 10-02-2021 ambulatory TERESO COLMENARES . Facility: Start: 10-01-2021 End: 10-02-2021 ambulatory TREESO COLMENARES . Facility: Start: 10-03-2020 End: 10-04-2020 ambulatory SIMONE RUIZ Facility:[facility] Start: 03-26-2020 End: 04-10-2020 ambulatory JEY ELISE Facility:[facility] Start: 03-14-2020 End: 03-15-2020 ambulatory JEY ELISE Facility:[facility] Procedures Date Procedure Procedure Detail Performing Clinician Start: 05-23-2024 Ecg routine ecg w/le ast 12 lds w/i&r Amador Son MD Work Phone: Start: 05-23-2024 Program eval implant able in persn dual ld pacer Naima Wright IMPORT/EXPORT ADMINISTRATOR-ANIMAL PATHOLOGIST Work Phone: Start: 04-24-2024 MLR HEMOGLOBIN A1C [...] w/le ast 12 lds w/i&r Naima Wright IMPORT/EXPORT ADMINISTRATOR-ANIMAL PATHOLOGIST Work Phone: Start: 11-09-2023 Program eval implant able in persn dual ld pacer Ana M Kumari IMPORT/EXPORT ADMINISTRATOR-ANIMAL PATHOLOGIST Work Phone: Start: 09-26-2023 CARDIAC DEVICE CHECK - REMOTE NAIMA WRIGHT Start: 09-26-2023 CARDIAC DEVICE CHECK - REMOTE Amador Son MD Work Phone: Start: 08-10-2023 VASC US UPPER EXTREM ITY VENOUS DUPLEX LEFT NAIMA WRIGHT Start: 08-10-2023 Dup-scan xtr veins unilateral/limited study Naima Wright IMPORT/EXPORT ADMINISTRATOR-ANIMAL PATHOLOGIST Work Phone: Start: 08-05-2023 Radiologic exam ches t single view Ana M Echo IMPORT/EXPORT ADMINISTRATOR-ANIMAL PATHOLOGIST Work Phone: Start: 08-05-2023 Ecg routine ecg w/le ast 12 lds trcg only w/o i&r Ana M Echo IMPORT/EXPORT ADMINISTRATOR-ANIMAL PATHOLOGIST Work Phone: Start: 08-05-2023 Electrophysiology study Amador Son MD Work Phone: Start: 08-05-2023 Echo tthrc r-t 2d w/ wom-mode compl spec&colr d Ana M Angel IMPORT/EXPORT ADMINISTRATOR-ANIMAL PATHOLOGIST Work Phone: Start: 08-05-2023 Ecg routine ecg w/le ast 12 lds trcg only w/o i&r Ana M Angel APRN-ANIMAL PATHOLOGIST Work Phone: Start: 08-05-2023 Basic metabolic pane l calcium total Ana M Angel IMPORT/EXPORT ADMINISTRATOR-ANIMAL PATHOLOGIST Work Phone: Start: 07-22-2023 CASE REQUEST EP [...] Performed By: #### V ITAD, PSASC #### [facility] [address] [place] [address] Dr. Britt Mendoza Start: 03-15-2020 ANESTH HIP ARTHROPLASTY SIMONE RUIZ Start: 03-15-2020 TOTAL HIP ARTHROPLASTY JEY ELISE Start: 03-14-2020 Antibody screen SIMONE BOLIVAR Comment on above: Performed By: #### [id number] ####[facility] Start: 08-24-2019 Colonoscopy Ishmael faith MD [...] Start: 11-28-2024 End: 11-28-2024 Patient encounter procedure [facility] Start: 11-21-2024 End: 11-21-2024 Patient encounter procedure 11/21/2024 8:00 AM EDT [facility] [address] [place] [address] [facility] Start: 08-04-2024 Creatinine measurement Creatinine Level [facility] Start: 08-04-2024 Echocardiography Echocardiogram [facility] Start: 08-04-2024 Potassium measurement Potassium Level [facility] Start: 07-23-2024 End: 07-23-2024 Patient encounter procedure 07/23/2024 10:15 AM EDT Office Visit [facility] [address] [place] [address] Ishmael Simon MD [address] [place] [address] [facility] Start: 06-13-2024 End: 06-13-2024 Patient encounter procedure 06/13/2024 9:10 AM EST Office Visit [place] [address] [place] [address] Valentino Ty MD [address] [facility] [address] [place] [address] [facility] Start: 05-25-2024 Urine screening for protein Diabetes: Urine Protein Screening [facility] Start: 05-23-2024 End: 05-23-2024 [facility] Start: 05-17-2024 Glaucoma screening Diabetes: Retinopathy Screening [facility] Start: 05-11-2024 End: 11-08-2024 Cardiac Device Check - In Clinic Cardiac Device Check - In Clinic Implantable Cardiac Device Routine Sinus bradycardia Sick sinus syndrome (Multi) Chronotropic incompetence MRI safe cardiac pacemaker in situ Expected: 05/11/2024 (Approximate), Expires: 11/08/2024 [facility] Service Area Work Phone: Comment on above: Expected: 05/11/2024 (Approximate), Expi res: 11/08/2024 Start: 04-24-2024 End: 04-24-2025 Hemoglobin A1c/Hemoglobin.total in Blood Hemoglobin A1c Lab Routine Type 2 diabetes mellitus with hyperglycemia, without long-term current use of insulin ([facility]) Expected: 04/24/2024 (Approximate), Expires: 04/24/2025 [facility] Healthcare Work Phone: Comment on above: Expected: 04/24/2024 (Approximate), Expi res: 04/24/2025 Start: 04-24-2024 End: 04-24-2024 Patient encounter procedure [facility] Comment on above: Arrived Start: 04-10-2024 Hemoglobin A1c measurement Diabetes: Hemoglobin A1C [facility] Start: 2024 RSV High Risk: (Elderly (60+) or Population) (1 - Risk 60-74 years 1-dose series) RSV High Risk: (Elderly (60+) or Population) (1 - Risk 60-74 years 1-dose series) [facility] Start: 02-06-2024 End: 02-05-2025 Bacteria identified in Urine by Culture Urine culture (clean catch) Microbiology Routine Dysuria Expected: 02/06/2024 (Approximate), Expires: 02/05/2025 [facility] Healthcare Work Phone: Comment on above: Expected: 02/06/2024 (Approximate), Expi res: 02/05/2025 Start: 02-06-2024 End: 02-05-2025 Chlamydia trachomatis and Neisseria gonorrhoeae DNA [Identifier] in Unspecified specimen by KATT with probe detection Chlamydia DNA probe, direct Microbiology Routine Acute prostatitis Pyuria Expected: 02/06/2024 (Approximate), Expires: 02/05/2025 [facility] Comment on above: Expected: 02/06/2024 (Approximate), Expi res: 02/05/2025 Start: 02-06-2024 End: 02-05-2025 Neisseria gonorrhoeae DNA assay Gonococcus DNA, PCR Microbiology Routine Dysuria Acute prostatitis Pyuria Expected: 02/06/2024 (Approximate), Expires: 02/05/2025 [facility] Comment on above: Expected: 02/06/2024 (Approximate), [...] COVID-19 Vaccine ( season) COVID-19 Vaccine () [facility] Start: 01-08-2024 COVID-19 Vaccine () COVID-19 Vaccine () [facility] Start: 01-08-2024 Influenza vaccination [facility] Start: 11-21-2023 End: 11-21-2023 Patient encounter procedure 11/21/2023 8:50 AM EDT Office Visit [place] [address] [place] [address] Valentino Ty MD [address] [facility] [address], [address] [place] [address] [facility] Start: 11-09-2023 End: 08-04-2024 Cardiac Device Check - In Clinic [facility] Service Area Work Phone: Comment on above: Expected: 11/09/2023 (Approximate), Expi res: 08/04/2024 Start: 11-09-2023 End: 08-04-2024 XR Chest 2 Views [facility] Work Phone: Comment on above: Expected: 11/09/2023, Expires: Once for 1 Occurrenc es starting 11/09/2023 until 11/09/2023 Start: 11-09-2023 End: 11-09-2023 [facility] Start: 11-03-2023 End: 11-03-2023 Patient encounter procedure 11/03/2023 8:50 AM EDT Office Visit [place] [address] [place] [address] Valentino Ty MD [address], [address] [place], [place] [id number] [facility] Start: 08-12-2023 End: 08-12-2023 Clinical Support 08/12/2023 8:30 AM EDT Clinical Support [facility] [address] [place] [address] [facility] Start: 08-10-2023 Subsequent hospital visit by physician 08/10/2023 2:09 PM EDT [facility] [address] [place] [address] Localized swelling on left hand; S/P placement of cardiac pacemaker [facility] Comment on above: Localized swelling on left hand; S/P placement of cardiac pacemaker Start: 07-22-2023 End: 07-21-2025 US Heart Transthoracic Transthoracic Echo Complete Echocardiography Routine Sinus bradycardia Chronotropic incompetence Sick sinus syndrome (CMS/HCC) Other fatigue Preoperative cardiovascular examination Expected: 07/22/2023 (Approximate), Expires: 07/21/2025 [facility] Work Phone: Comment on above: Expected: 07/22/2023 (Approximate), Expi res: 07/21/2025 Start: 07-13-2023 FUV, Provider: Valentino Ty, Status: Pen, Time: 8:30 AM FUV, Provider: Valentino Ty, Status: Pen, Time: 8:30 AM [facility] 600 DO Work Phone: Start: 01-07-2023 COVID-19 Vaccine ( season) COVID-19 Vaccine ( season) [facility] Start: 01-07-2023 Influenza vaccination Influenza Vaccine (#1) [facility] Start: 07-14-2022 FUV, Provider: Valentino Ty, Status: Pen, Time: 10:40 AM FUV, Provider: Valentino Ty, Status: Pen, Time: 10:40 AM [facility] 600 DO Work Phone: Start: 02-15-2022 STRESS JUICE, Provider: CARLITO MCKEONI NUCLEAR 01,[id number], Status: Pen, Time: 2:00 PM STRESS JUICE, Provider: CARLITO MCKEONI NUCLEAR 01,[id number], Status: Pen, Time: 2:00 PM [facility] 600 DO Work Phone: Start: 02-21-2014 Zoster Vaccines (1 of 2) Zoster Vaccines (1 of 2) [facility] Start: 02-21-1986 DTaP/Tdap/Td Vaccines (1 - Tdap) DTaP/Tdap/Td Vaccines (1 - Tdap) [facility] Start: 02-21-1983 Hepatitis B Vaccines (1 of 3 - 19+ 3-dose series) Hepatitis B Vaccines (1 of 3 - 19+ 3-dose series) [facility] Start: 02-21-1983 Pneumococcal vaccination Pneumococcal Vaccine (1 of 2 - PCV) [facility] Start: 02-21-1983 Urine screening for protein Diabetes: Urine Protein Screening [facility] Start: 02-21-1982 Diabetes mellitus screening Diabetes Screening [facility] Start: 02-21-1982 Hepatitis C screening Hepatitis C Screening [facility] Start: 02-21-1974 Diabetic foot examination Diabetes: Foot Exam [facility] Start: 02-21-1974 Glaucoma screening Diabetes: Retinopathy Screening [facility] Start: 02-21-1970 Pneumococcal Vaccine: Pediatrics (0 to 5 Years) and At-Risk Patients (6 to 64 Years) (1 - PCV) Pneumococcal Vaccine: Pediatrics (0 to 5 Years) and At-Risk Patients (6 to 64 Years) (1 - PCV) [facility] Start: 02-21-1970 Pneumococcal Vaccine: Pediatrics (0 to 5 Years) and At-Risk Patients (6 to 64 Years) (1 of 2 - PCV) Pneumococcal Vaccine: Pediatrics (0 to 5 Years) and At-Risk Patients (6 to 64 Years) (1 of 2 - PCV) [facility] Start: 02-21-1965 MMR Vaccines (1 of 1 - Standard series) MMR Vaccines (1 of 1 - Standard series) [facility] Start: 1964 COVID-19 Vaccine (#1) COVID-19 Vaccine (#1) [facility] Start: 1964 Annual wellness visit Welcome to Medicare Visit [facility] Start: 1964 Creatinine measurement Creatinine Level [facility] Start: 1964 Echocardiography Echocardiogram [facility] Start: 1964 Hemoglobin A1c measurement Diabetes: Hemoglobin A1C [facility] Start: 1964 Hepatitis B Vaccines (1 of 3 - 3-dose series) Hepatitis B Vaccines (1 of 3 - 3-dose series) [facility] Start: 1964 HIV screening HIV Screening [facility] Start: 1964 Lipid panel Lipid Panel [facility] Start: 1964 Medicare Annual Wellness (AWV) Medicare Annual Wellness (AWV) [facility] Start: 1964 Medicare Annual Wellness Visit Medicare Annual Wellness Visit (AWV) [facility] Start: 1964 Potassium measurement Potassium Level [facility] Start: 1964 Screening for malignant neoplasm of colon [facility] Start: 1964 Urine screening for protein Diabetes: Urine Protein Screening [facility] End: 07-21-2024 Basic metabolic 2000 panel - Serum or Plasma Basic Metabolic Panel Lab Routine Sinus bradycardia Chronotropic incompetence Sick sinus syndrome (CMS/HCC) Other fatigue 1 Occurrences starting 07/22/2023 until 07/21/2024 [facility] Work Phone: Comment on above: 1 Occurrences starting 07/22/2023 until 07/21/2024 End: 11-20-2025 Cardiac Device Check - In Clinic Cardiac Device Check - In Clinic Implantable Cardiac Device Routine Cardiac pacemaker in situ 1 Occurrences starting 05/23/2024 until 11/20/2025 [facility] Service Area Work Phone: Comment on above: 1 Occurrences starting 05/23/2024 until 11/20/2025 End: 01-25-2024 Cardiac Device Check - Remote [facility] Work Phone: Comment on above: Once for 1 Occurrences starting 01/25/20 24 until 01/25/2024 End: 11-20-2024 Cardiac Device Check - Remote Cardiac Device Check - Remote Implantable Cardiac Device Routine Cardiac pacemaker in situ 52 Occurrences starting 05/23/2024 until 11/20/2024 [facility] Work Phone: Comment on above: 52 Occurrences starting 05/23/2024 until 11/20/2024 End: 07-21-2024 CBC panel - Blood by Automated count CBC Lab Routine Sinus bradycardia Chronotropic incompetence Sick sinus syndrome (CMS/HCC) Other fatigue 1 Occurrences starting 07/22/2023 until 07/21/2024 [facility] Work Phone: Comment on above: 1 Occurrences starting 07/22/2023 until 07/21/2024 ECG 12 lead (Clinic Performed) ECG 12 lead (Clinic Performed) ECG Routine Sinus bradycardia 11/09/2023 10:38 AM EDT [facility] Work Phone: ECG 12 lead STAT ECG 12 lead STA T ECG STAT 08/05/2023 12:30 PM EDT [facility] Work Phone: ECG 12 lead STAT ECG 12 lead STA T ECG STAT 08/05/2023 5:12 PM EDT [facility] Work Phone: PPM IMPLANT DC PPM IMPLANT DC S inus bradycardia Chronotropic incompetence Sick sinus syndrome (CMS/HCC) Other fatigue [facility] Work Phone: End: 07-21-2024 Prothrombin time (PT) Protime-INR Lab Routine Sinus bradycardia Chronotropic incompetence Sick sinus syndrome (CMS/HCC) Other fatigue 1 Occurrences starting 07/22/2023 until 07/21/2024 [facility] Work Phone: Comment on above: 1 Occurrences starting 07/22/2023 until 07/21/2024 Payers Date Payer Category Payer Self-pay 2023 Medicare [id number] 2023 Medicare (Managed Care) 1.2. [id number] 2023 Private Health Insurance [id number] 2023 Private Health Insurance 1965 Unknown [id number] 2.16.840.1.281307.3.579.2.647 1964 Unknown [id number] 2.16.840.1.267241.3.579.2.647 1964 Unknown [id number] 2.16.840.1.037587.3.579.2.647 1964 Unknown [id number] 2.16.840.1.259816.3.579.2.1068 1964 Unknown [id number] 2.16.840.1.006387.3.579.2.356 1964 Unknown [id number] 2.16.840.1.514092.3.579.2.356 1964 Unknown [id number] 2.16.840.1.522109.3.579.2.593 1964 Unknown [id number] 2.16.840.1.436792.3.579.2.593 1964 Unknown [id number] 2.16.840.1.173829.3.579.2.593 1964 Unknown [id number] 2.16.840.1.027727.3.579.2.593 1964 Unknown [id number] 2.16.840.1.830652.3.579.2.593 1964 Unknown [id number] 2.16.840.1.123566.3.579.2.593 1964 Unknown [id number] 2.16.840.1.125774.3.579.2.593 1964 Unknown [id number] 2.16.840.1.035485.3.579.2.593 1964 Unknown [id number] 2.16.840.1.781345.3.579.2.593 1964 Unknown [id number] 2.16.840.1.922124.3.579.2.593 1964 Unknown [id number] 2.16.840.1.890195.3.579.2.593 1964 Unknown [id number] 2.16.840.1.356961.3.579.2.593 1964 Unknown [id number] 2.16.840.1.854303.3.579.2.593 1964 Unknown [id number] 2.16.840.1.021940.3.579.2.593 1964 Unknown [id number] 2.16.840.1.863058.3.579.2.593 1964 Unknown [id number] 2.16.840.1.087573.3.579.2.593 1964 Unknown [id number] 2.16.840.1.010318.3.579.2.593 1964 Unknown [id number] 2.16.840.1.583321.3.579.2.593 1964 Unknown [id number] 2.16.840.1.127101.3.579.2.593 1964 Unknown [id number] 2.16.840.1.183689.3.579.2.593 1964 Unknown [id number] 2.16.840.1.474059.3.579.2.593 1964 Unknown [id number] 2.16.840.1.359294.3.579.2.593 1964 Unknown [id number] 2.16.840.1.857145.3.579.2.593 1964 Unknown [id number] 2.16.840.1.385026.3.579.2.593 1964 Unknown [id number] 2.16.840.1.434433.3.579.2.1259 1964 Unknown [id number] 2.16.840.1.447490.3.579.2.1259 1964 Unknown [id number] 2.16.840.1.726893.3.579.2.1259 1964 Unknown [id number] 2.16.840.1.900012.3.579.2.1259 1964 Unknown [id number] 2.16.840.1.586778.3.579.2.196 1964 Unknown [id number] 2.16.840.1.484395.3.579.2.1244 1964 Unknown [id number] 2..840.1.339949.3.579.2.1244 1964 Unknown [id number] 2.16.840.1.584639.3.579.2.1244 1964 Unknown [id number] 2.16.840.1.726756.3.579.2.1244 1964 Unknown [id number] 2.16.840.1.611763.3.579.2.1244 1964 Unknown [id number] 2.16.840.1.354923.3.579.2.1244 1964 Unknown [id number] 2.16.840.1.737814.3.579.2.1244 1964 Unknown [id number] 2.16.840.1.066314.3.579.2.1244 1964 Unknown [id number] 2.16.840.1.950300.3.579.2.1246 1964 Unknown [id number] 2.16.840.1.927209.3.579.2.1246 1964 Unknown [id number] 2.16.840.1.623542.3.579.2.1246 1964 Unknown [id number] 2.16.840.1.259689.3.579.2.1246 1964 Unknown [id number] 2.16.840.1.127547.3.579.2.1246 1964 Unknown [id number] 2.16840.1.074548.3.579.2.124 1964 Unknown [id number] 2.16.840.1.364999.3.579.2.1246 1960 Medicaid [id number] 1960 Medicare [id number] Unknown [id number] Unknown Unknown [employer] [id number] Unknown [id number] 2..840.1.495018.3.579.2.531 Unknown [id number] 2.16.840.1.538490.3.579.2.531 Social History Date Type Detail Facility Start: 07-13-2023 End: 05-23-2024 No alcohol use No alcohol use [facility] Comment on above: 1 pack daily; Start: 07-13-2023 End: 11-09-2023 Tobacco smoking status NHIS Smokes tobacco daily [facility] History of tobacco use Cigarette Smoker [facility] Work Phone: Start: 07-13-2023 End: 11-09-2023 Tobacco use and exposure Smokeless tobacco non-user [facility] Work Phone: Start: 07-22-2023 End: 05-23-2024 Alcohol intake Lifetime non-drinker (finding) [facility] Work Phone: Start: 07-13-2023 End: 05-23-2024 Tobacco use panel [facility] Start: 1965 Sex Assigned At Not on file [facility] Work Phone: Start: 07-12-2023 End: 05-23-2024 Exposure to SARS-CoV-2 (event) Not sure [facility] Frequency of Social Gatherings with Friends and Family Not on file [facility] Do you belong to any clubs or organizations such as gnosticist groups, unions, fraternal or athletic groups, or [...] Healthcare Start: 07-06-2019 Tobacco smoking stat us ILIS Smoker (finding) [facility] Start: 03-17-2024 End: 03-28-2024 Sex Male (finding) [facility] Start: 1965 Sex Assigned At Male F [facility] Medical Equipment Procedure Code Equipment Code Equipment Origin al Text Equipment Identifier Dates Lead, Capsurefix Novus, 52 Cm - [id number] Start: 08-05-2023 Lead, Capsurefix Novus, 45 Cm - [id number] Start: 08-05-2023 Pacemaker, Dual Chamber, [place] Mri Xt Dr - [id number] Start: 08-05-2023 Clinical Notes 08-31-2020 to [...] A DAY cetirizine (ZYRTEC) 10 mg, Nightly cvzkhwtetfa-ynhtctedp-fspvheof (TRELEGY-ELLIPTA) 100-62.5-25 mcg blister with device 1 [...] bradycardia status post dual-chamber pacemaker implant ([employer]tronic [place] XT DR MRI) on August 05, 2023. [...] prepare this document. documented in this encounter [facility] Work Phone: 05-23-2024 Instructions Jazz Flynn RN [...] AMADOR SON MD documented in this encounter [facility] Work Phone: 04-24-2024 History of Present illness Narrative Associated Problem(s): Class 2 severe obesity due to excess calories with serious comorbidity and body mass index (BMI) of 37.0 to 37.9 in adult (CMS/HCC) Weight up 28 pounds in past year. Add ozempic. Associated Problem(s): Essential hypertension, benign (CMS/[facility]) BP controlled and monitor PRN. Associated Problem(s): Type 2 diabetes mellitus with hyperglycemia, without long-term current use of insulin ([facility]) Not checking BS and due for A1C. [...] Items Addressed This Visit Essential hypertension, benign ([facility]) BP controlled and monitor PRN. Type 2 diabetes mellitus with hyperglycemia, without long-term current use of insulin ([facility]) Not checking BS and due for A1C. Add ozempic. Relevant Medications semaglutide (Ozempic, 0.25 or 0.5 MG/DOSE,) 2 MG/1.5ML solution pen-injector Other Relevant Orders Hemoglobin A1c Class 2 severe obesity due to excess calories with serious comorbidity and body mass index (BMI) of 37.0 to 37.9 in adult ([facility]) Weight up 28 pounds in past year. [...] daily Aspirin therapy. documented in this encounter [facility] 02-06-2024 History of Present illness Narrative [...] DNA probe, direct documented in this encounter [facility] 01-13-2024 History of Present illness Narrative [...] is alert. Assessment/Plan documented in this encounter [facility] 11-09-2023 History of Present illness Narrative [...] DAY cetirizine (ZYRTEC) 10 mg, oral, Nightly tqbnjijmcve-jrjgwzuns-ibqfmihz (TRELEGY-ELLIPTA) 100-62.5-25 mcg blister with device 1 [...] 68 bpm, prolonged AV conduction with a MA interval of 220 ms, QRS durations 100 [...] sinus bradycardia status post dual-chamber pacemaker implant ([facility] [place]juntas XT DR MRI) on August 05, 2023. [...] prepare this document. 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 No symptoms [...] Diagnosis Date Arrhythmia CHF (congestive heart failure) ([facility]) COPD (chronic obstructive pulmonary disease) ([facility]) Hypertension Social History Social History Tobacco [...] breakfast cetirizine (ZYRTEC) 10 mg, oral, Nightly ysnsrqxqpmy-boqpwcctg-tfkblfpj (TRELEGY-ELLIPTA) 100-62.5-25 mcg blister with device 1 [...] prepare this document. documented in this encounter [facility] Work Phone: 08-10-2023 Instructions Vero Mccarthy LPN [...] Amador Son MD documented in this encounter [facility] Work Phone: 08-05-2023 Nurse Note Patient discharge instructions reviewed with patient and , verbalized understanding. Lt chest dressing remains dry/intact, no hematoma, no ecchymosis. Patient able to teachback site care instructions, follow up appointments. IV x2 removed and patient discharged to home via w/c. [facility] 08-05-2023 Nurse Note Patient discharge instructions reviewed [...] and ice pack over site. Sterling from [employer] in room speaking to Pt and SO educating on home device monitor. Pt returned to room after echocardiogram. Denies needs at this time. documented in this encounter [facility] Work Phone: 08-05-2023 Nurse Note Patient sitting up in chair, denies any complaints of incisional pain. Lt upper chest incision remains dry/intact. Will begin discharge instructions. [facility] Work Phone: 08-05-2023 Nurse Note Patient ambulated to , gait steady. Pacer rep has already met with patient and . Lt upper chest dressing remains dry/intact. Lt arm in immobilizer and ice pack over site. [facility] Work Phone: 08-05-2023 Note Formatting of this n ote might be different from the original. Post EKG and CXR performed at bedside. Pt denies needs at this time. Left chest remains soft and stable with no hematoma or oozing. [facility] Work Phone: 08-05-2023 Miscellaneous Notes Post EKG [...] discussed with patient. documented in this encounter [facility] Work Phone: 08-05-2023 Hospital Discharge instructions Ana M Kumari, IMPORT/EXPORT ADMINISTRATOR-ANIMAL PATHOLOGIST - 08/05/2023 5:00 PM EDT Images from [...] your arm above shoulder level. Do not grape picker items that weigh greater than 10 [...] have been instructed by the device company congressional representative regarding remote home monitoring. There are [...] sent through Care Everywhere.Pacemaker Insertion Discharge Instructions (Yoruba)documented in this encounter [facility] Work Phone: 08-05-2023 Note Formatting of this [...] Pt denies further needs at this time. [facility] Work Phone: 08-05-2023 Note Table formatting fro [...] of infection. The patient should call the cook jelly immediately if symptoms recur, or for any problems. The patient has been instructed accordingly. 2. Follow up with [facility] office in seven days for [...] Device implanted Device implanted Medtronic dual-chamber pacemaker [place] XT DR MRI model number W1 DR 017 number [id number]. Right atrial lead Medtronic 5076/45 serial number [id number] 8 mm [id number]. Imp (more content not included)... [id number] 08-05-2023 Note Formatting of this n ote might be different from the original. Sedation Plan ASA 2 Mallampati class: II. Risks, benefits, and alternatives discussed with patient. 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 No symptoms [...] breakfast cetirizine (ZYRTEC) 10 mg, oral, Nightly rfvtigloubv-xsokuxwhk-ufdseckd (TRELEGY-ELLIPTA) 100-62.5-25 mcg blister with device 1 [...] software was utilized to prepare this document. 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 No symptoms [...] breakfast cetirizine (ZYRTEC) 10 mg, oral, Nightly ihxojbzqbex-ogpxztyql-iyqsbzos (TRELEGY-ELLIPTA) 100-62.5-25 mcg blister with device 1 [...] prepare this document. documented in this encounter [facility] Work Phone: 08-05-2023 Nurse Note Sterling from [employer] in room speaking to Pt and SO educating on home device monitor. [facility] 08-05-2023 Nurse Note Pt returned to room after echocardiogram. Denies needs at this time. 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 No symptoms [...] breakfast cetirizine (ZYRTEC) 10 mg, oral, Nightly bgldhlegdpn-fmkibpjoz-bnqmgukm (TRELEGY-ELLIPTA) 100-62.5-25 mcg blister with device 1 [...] prepare this document. documented in this encounter [facility] Work Phone: 07-22-2023 Instructions Jazz Flynn RN [...] AMADOR SON MD documented in this encounter [facility] Work Phone: 07-20-2022 Note CONSULTATION PROCEDURE DATE: [...] right medial portion of his leg. [facility] 05-07-2022 Note CONSULTATION CONSULTATION DATE: 05/07/2022 HISTORY [...] three months' time unless otherwise indicated. [facility] 01-14-2022 Note CONSULTATION CONSULTATION DATE: 01/14/2022 HISTORY [...] it was recommended that he see a window framer, which he did do. He did a Holter monitor study and is following up with his window framer on 01/28/2022. Current medications include gabapentin 300 [...] agrees with the plan of care. [facility] 11-19-2021 Note CONSULTATION CONSULTATION DATE: 11/19/2021 This [...] to S1. Activities such as standing, walking, menagerie superintendent and evening hours, stairs, bending and physical [...] the groin. Omi's point is nontender bilaterally. Jaaynt's compression and thigh thrust tests are negative. [...] be followed up in the clinic post-procedure. [facility] Signed and Approved by: TERESO COLMENARES . 11/27/2021 14:13:00 [facility] 10-22-2021 Note CONSULTATION CONSULTATION DATE: 10/22/2021 HISTORY [...] patient agrees with the plan of care. [facility] Signed and Approved by: TERESO COLMENARES . 11/04/2021 16:23:00 [facility] 10-01-2021 Note CONSULTATION CONSULTATION DATE: 10/01/2021 [...] shape. He has seen Dr. Nunn in [place] in the past regarding his back, and [...] Patient agrees with the plan of care. [facility] Signed and Approved by: TERESO COLMENARES . 10/08/2021 16:01:00 [facility] 08-31-2020 Note Microbiology PROCEDURE: Blood Culture Charcoal [...] Locations R1: [facility] at[facility] [address] [place] [address], [id number] , , [facility] Comment on above: Performed By: #### [id number] ####[place] [address] 08-31-2020 Note Microbiology PROCEDURE: Blood Culture Charcoal [...] Locations R1: This test was performed at: [facility], [address] [place] [address], [facility] , , [facility] Comment on above: Performed By: #### [id number] ####[facility] [address] [place] [address] Evaluation note Diagnosis 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 Sinus bradycardia Other specified cardiac dysrhythmias Establishing care with new doctor, encounter for BMI 34.0-34.9,adult Sick sinus syndrome (CMS/HCC) Sinoatrial node dysfunction Simple chronic bronchitis (CMS/HCC) Simple chronic bronchitis Current smoker Other fatigue Preoperative cardiovascular examination Pre-operative cardiovascular examination documented in this encounter [facility] Work Phone: Evaluation note* Diagnosis Other fatigue- [...] dysfunction Other fatigue documented in this encounter [facility] Work Phone: Evaluation note* Diagnosis Localized swelling on left hand S/P placement of cardiac pacemaker 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 Abnormal stress test Other nonspecific abnormal cardiovascular system function study Sinus bradycardia Other specified cardiac dysrhythmias Sick sinus syndrome (CMS/HCC) Sinoatrial node dysfunction Essential hypertension, benign BMI 34.0-34.9,adult Current smoker documented in this encounter [facility] Work Phone: Evaluation note* Diagnosis Localized swelling on left hand S/P placement of cardiac pacemaker documented in this encounter [facility] Work Phone: Evaluation note* Diagnosis Cardiac pacemaker in situ Sinoatrial node dysfunction (Multi) Sinoatrial node dysfunction documented in this encounter [facility] Work Phone: Evaluation note* Diagnosis Cardiac pacemaker in situ Sinoatrial node dysfunction (Multi) Sinoatrial node dysfunction documented in this encounter [facility] Work Phone: Evaluation note* Diagnosis Type 2 [...] lumbosacral intervertebral disc documented in this encounter [facility] Healthcare[facility] noteNo assessment [facility] Work [facility]: Evaluation note* Diagnosis MRI safe [...] (pediatric) Current smoker documented in this encounter [facility] Work Phone: Evaluation note* Diagnosis Pacemaker Cardiac pacemaker in situ documented in this encounter [facility] Work Phone: Evaluation note* Diagnosis Type 2 [...] hyperglycemia, without long-term current use of insulin ([facility]) Essential hypertension, benign (CMS/HCC) Essential hypertension, benign Class 2 severe obesity due to excess calories with serious comorbidity and body mass index (BMI) of 37.0 to 37.9 in adult ([facility]) documented in this encounter [facility] HealthcareEvaluation note* Diagnosis Cardiac pacemaker in situ Sinoatrial node dysfunction (Multi) Sinoatrial node dysfunction documented in this encounter [facility] Work Phone: Evaluation note* Diagnosis Degeneration of lumbar intervertebral disc Degeneration of lumbar or lumbosacral intervertebral disc documented in this encounter [facility] HealthcareEvaluation note* Diagnosis Type 2 diabetes mellitus [...] (BMI) 35.0-35.9, adult documented in this encounter [facility] HealthcareEvaluation note* Diagnosis Degeneration of lumbar intervertebral disc Degeneration of lumbar or lumbosacral intervertebral disc documented in this encounter [facility] HealthcareEvaluation note* Diagnosis Other intervertebral disc degeneration, lumbar region Degeneration of lumbar or lumbosacral intervertebral disc documented in this encounter [facility] HealthcareEvaluation note* Diagnosis Dysuria- Primary Acute prostatitis Pyuria Other nonspecific finding on examination of urine documented in this encounter [facility] HealthcareEvaluation note* Diagnosis Type 2 diabetes mellitus [...] hyperglycemia, without long-term current use of insulin ([facility]) Essential hypertension, benign ([facility]) Essential hypertension, benign Class 2 severe obesity due to excess calories with serious comorbidity and body mass index (BMI) of 37.0 to 37.9 in adult ([facility]) Degeneration of lumbar intervertebral disc Degeneration of lumbar or lumbosacral intervertebral disc documented in this encounter [facility] HealthcareEvaluation note* Diagnosis Cardiac pacemaker in situ- Primary Sick sinus syndrome (Multi) Sinoatrial node dysfunction MRI safe cardiac pacemaker in situ Abnormal EKG Nonspecific abnormal electrocardiogram (ECG) (EKG) Chronotropic incompetence Other specified conduction disorder Sinoatrial node dysfunction (Multi) Sinoatrial node dysfunction Sinus bradycardia Other specified cardiac dysrhythmias Current smoker BMI 37.0-37.9, adult documented in this encounter [facility] Work Phone: Evaluation note* Diagnosis Sinus bradycardia Other specified cardiac dysrhythmias Sick sinus syndrome (Multi) Sinoatrial node dysfunction Chronotropic incompetence Other specified conduction disorder MRI safe cardiac pacemaker in situ documented in this encounter [facility] Work Phone: History of Present illness Narrative* Patient is here for cardiovascular evaluation for second opinion in regard to documents resting sinus bradycardia. The patient is 56-year-old with history of tobacco use and COPD was evaluated recently due to shortness of breath and his stress test showed questionable inferior wall ischemia. This led to a cardiac evaluation in [place] and its not clear to me whether [...] recent ischemic evaluation * 5 follow-up in [address] [place], [place] [address] Work Phone: History of Present illness Narrative* Patient is here for cardiovascular evaluation for second opinion in regard to documents resting sinus bradycardia. The patient is 56-year-old with history of tobacco use and COPD was evaluated recently due to shortness of breath and his stress test showed questionable inferior wall ischemia. This led to a cardiac evaluation in [place] and its not clear to me whether [...] ischemic evaluation * 5 follow-up in 6 [facility] Work Phone: History of Present illness Narrative* Patient is here for cardiovascular evaluation for second opinion in regard to documents resting sinus bradycardia. The patient is 56-year-old with history of tobacco use and COPD was evaluated recently due to shortness of breath and his stress test showed questionable inferior wall ischemia. This led to a cardiac evaluation in [place] and its not clear to me whether [...] ischemic evaluation * 5 follow-up in 6 [facility] Work Phone: History of Present illness [...] ischemic evaluation. He underwent cardiac catheterization in [place] which showed no significant obstructive disease * [...] EKG or earlier if the need arise [facility] [facility] DO Work Phone: Reason for visit [...] Date Expiration Date Visits Requested Visits Authorized [id number] Pending Review Perform Procedure 11/09/2023 11/08/2024 1 1 [facility] Work Phone: Summary Purpose Family History No [...] Preoperative cardiovascular examination Procedures Transthoracic Echo Complete MA ECHO TTHRC R-T 2D W/WOM-MODE COMPL SPEC&COLR D Amador Son MD [address] [address] Referral ID Status Reason Start Date Expiration Date Visits Requested Visits Authorized [id number] Pending Review Perform Procedure 07/22/2023 07/21/2024 1 1 Specialty Diagnoses / Procedures Referred By Contac t Referred To Contact Diagnoses Sinus bradycardia Establishing care with new doctor, encounter for Procedures ECG 12 lead (Clinic Performed) Amador Son MD [address] [address] Referral ID Status Reason Start Date Expiration Date V isits Requested Visits Authorized [id number] Authorized 07/22/2023 07/21/2024 1 1 Specialty Diagnoses / Procedures Referred By Contac t Referred To Contact Radiology Diagnoses Pacemaker Procedures XR chest 2 views Ana M Kumari, IMPORT/EXPORT ADMINISTRATOR-ANIMAL PATHOLOGIST [address] [facility], [address] [address] Referral ID Status Reason Start Date Expiration Date Visits Requested Visits Authorized [id number] Authorized Perform Procedure 08/05/2023 08/04/2024 1 1 Specialty Diagnoses / Procedures Referred By Contac t Referred To Contact Cardiology Diagnoses Pacemaker Procedures Cardiac Device Check - In Clinic Ana M Kumari APRN-ANIMAL PATHOLOGIST [address] [facility], Aditya [address] [place] [address] Referral ID Status Reason Start Date Expiration Date Visits Requested Visits Authorized [id number] Pending Review Perform Procedure 08/05/2023 08/04/2024 1 1 Specialty Diagnoses / Procedures Referred By Contac t Referred To Contact Cardiology Diagnoses Localized swelling on left hand S/P placement of cardiac pacemaker Procedures Vascular US upper extremity venous duplex left Barbour-Ellacott, Naima E, IMPORT/EXPORT ADMINISTRATOR-ANIMAL PATHOLOGIST [address] [facility], [address] [address] Referral ID Status Reason Start Date Expiration Date Visits Requested Visits Authorized [id number] Authorized Perform Procedure 08/09/2023 08/08/2024 1 1 Specialty Diagnoses / Procedures Referred By Contac t Referred To Contact Cardiology Diagnoses Cardiac pacemaker in situ Sinoatrial node dysfunction (Multi) Procedures Cardiac Device Check - Remote Amador Son MD [address] [address] Referral ID Status Reason Start Date Expiration Date Visits Requested Visits Authorized [id number] Pending Review Perform Procedure 08/08/2023 08/07/2024 1 1 Specialty Diagnoses / Procedures Referred By Contac t Referred To Contact Cardiology Diagnoses Sinus bradycardia Sick sinus syndrome (Multi) Chronotropic incompetence MRI safe cardiac pacemaker in situ Procedures Cardiac Device Check - In Clinic Naima Wright IMPORT/EXPORT ADMINISTRATOR-ANIMAL PATHOLOGIST [address] [address] Referral ID Status Reason Start Date Expiration Date Visits Requested Visits Authorized [id number] Pending Review Perform Procedure 11/09/2023 11/08/2024 1 1 Specialty Diagnoses / Procedures Referred By Contac t Referred To Contact Cardiology Diagnoses Sick sinus syndrome (Multi) MRI safe cardiac pacemaker in situ Procedures Follow Up In Cardiology Naima Wright IMPORT/EXPORT ADMINISTRATOR-ANIMAL PATHOLOGIST [address] [facility], [address] [address] Amador Son MD [address] [address] Referral ID Status Reason Start Date Expiration Date V isits Requested Visits Authorized [id number] Authorized 11/09/2023 11/08/2024 1 1 Specialty Diagnoses / Procedures Referred By Contac t Referred To Contact Diagnoses Sinus bradycardia Procedures ECG 12 lead (Clinic Performed) Naima Wright IMPORT/EXPORT ADMINISTRATOR-ANIMAL PATHOLOGIST [address] [facility], Adity[address] [place] [address] Referral ID Status Reason Start Date Expiration Date V isits Requested Visits Authorized [id number] Authorized 11/09/2023 11/08/2024 1 1 Chief Complaint [...] section and content) DATE CREATED AUTHOR 03/06/2021 [facility] DATE CREATED AUTHOR AUTHOR'S ORGANIZ ATION 03/12/2021 [facility] DATE CREATED AUTHOR AUTHOR'S ORGANIZ ATION 02/16/2022 [facility] DATE CREATED AUTHOR AUTHOR'S ORGANIZ ATION 07/16/[address] [facility] DATE CREATED AUTHOR AUTHOR'S ORGANIZ ATION 07/16/2022 [facility] DATE CREATED AUTHOR AUTHOR'S ORGANIZ ATION 09/17/2022 [facility] DATE CREATED AUTHOR AUTHOR'S ORGANIZ ATION 04/03/2024 [facility] DATE CREATED AUTHOR AUTHOR'S ORGANIZ ATION 04/27/2024 [facility] EPIC DATE CREATED AUTHOR AUTHOR'S ORGANIZ ATION 04/30/2024 [facility] DATE CREATED AUTHOR AUTHOR'S ORGANIZ ATION 05/26/2024 [facility] DATE CREATED AUTHOR AUTHOR'S ORGANIZ ATION 05/26/2024 [facility] Reason for Visit (unrecogniz ed section and content) Reason Comments New Patient Visit Pt is here today as a new patient from Dr. Ty Specialty Diagnoses / Procedures Referred By Isela mckay Referred To Contact Cardiology Diagnoses Sinus bradycardia Valentino Ty MD [address] [facility], [address] [place] [address] Amador Son MD [address] [facility], [facility] [[email or web address] [address] [place] [address] Referral ID Status Reason Start Date Expiration Date Visits Requested Visits Authorized [id number] Authorized Specialty Services Required 07/15/2023 07/14/2024 1 1 Specialty Diagnoses / Procedures Referred By Contac t Referred To Contact Diagnoses Sinus bradycardia Chronotropic incompetence Sick sinus syndrome (CMS/HCC) Other fatigue Sinus bradycardia [R00.1] Chronotropic incompetence [I45.89] Sick sinus syndrome (CMS/HCC) [I49.5] Other fatigue [R53.83] Procedures MA INS NEW/RPLCMT PRM PM W/TRANSV ELTRD ATRIAL&VENT PPM IMPLANT DUAL Amador Son MD 254 [facility] [address] [place] [address] [address] [address] [place] [address] Referral ID Status Reason Start Date Expiration Date Visits Re quested Visits Authorized [id number] 1 1 Reason Comments Wound Check Patient is having sw elling in his right hand Specialty Diagnoses / Procedures Referred By Isela t Referred To Contact Cardiology Diagnoses Localized swelling on left hand S/P placement of cardiac pacemaker Procedures Vascular US upper extremity venous duplex left Naima Wright E, IMPORT/EXPORT ADMINISTRATOR-ANIMAL PATHOLOGIST [address] [facility], [facility] [[email or web address] [address] [place] [address] Referral ID Status Reason Start Date Expiration Date Visits Requested Visits Authorized [id number] Authorized Perform Procedure 08/09/2023 08/08/2024 1 1 Specialty Diagnoses / Procedures Referred By Katyac t Referred To Contact Cardiology Diagnoses Cardiac pacemaker in situ Sinoatrial node dysfunction (Multi) Procedures Cardiac Device Check - Remote Amador Son MD [address] [place] [address] [address] [place] [address] Referral ID Status Reason Start Date Expiration Date Visits Requested Visits Authorized [id number] Pending Review Perform Procedure 08/08/2023 08/07/2024 1 1 Reason Onset Date Comments Med Refill 03/01/2024 Reason Onset Date Comments Med Refill 03/30/2024 Reason Comments Follow-up Pt is here today fol lowing up with device check Specialty Diagnoses / Procedures Referred By Contac t Referred To Contact Diagnoses Sinus bradycardia Procedures ECG 12 lead (Clinic Performed) Naima Wright, [facility] [address] [facility], [address] [address] Referral ID Status Reason Start Date Expiration Date V isits Requested Visits Authorized [id number] Authorized 11/09/2023 11/08/2024 1 1 Specialty Diagnoses / Procedures Referred By Contac t Referred To Contact Cardiology Diagnoses Pacemaker Procedures Cardiac Device Check - In Clinic Ana M Kumari, [facility] [address] [facility], [address] [address] Referral ID Status Reason Start Date Expiration Date Visits Requested Visits Authorized [id number] Pending Review Perform Procedure 08/05/2023 08/04/2024 1 1 Specialty Diagnoses / Procedures Referred By Contac t Referred To Contact Radiology Diagnoses Pacemaker Procedures XR chest 2 views Ana M Kumari, [facility] [address] [facility], [address] [address] Referral ID Status Reason Start Date Expiration Date Visits Requested Visits Authorized [id number] Authorized Perform Procedure 08/05/2023 08/04/2024 1 1 [...] Procedures Follow Up In Cardiology Naima Wright, IMPORT/EXPORT ADMINISTRATOR-ANIMAL PATHOLOGIST Phone: tel: fax: Amador Son MD [address] [place] [address] Phone: tel: fax: Referral ID Status Reason Start Date Expiration Date V isits Requested Visits Authorized [id number] Authorized 11/09/2023 11/08/2024 1 1 Care Teams (unrecognized sec tion and content) Machine Puller And Laster Relationship Specialty Start Date End Date Ishmael Simon MD [address] [place] [address] PCP - General Family Medicine 06/29/23 Machine Puller And Laster Relationship Specialty Start Date End Date Ishmael Simon MD [address] [place] [address] PCP - General Family Medicine 06/29/23 Machine Puller And Laster Relationship Specialty Start Date End Date Ishmael Simon MD [address] [place] [address] PCP - General Family Medicine 06/29/23 Machine Puller And Laster Relationship Specialty Start Date End Date Ishmael Simon MD [address] [place] [address] PCP - General Family Medicine 06/29/23 Machine Puller And Laster Relationship Specialty Start Date End Date Ishmael Smion MD PCP - General Family Medicine 06/29/23 Machine Puller And Laster Relationship Specialty Start Date End Date Ishmael Simon MD [address] [place] [address] PCP - General Family Medicine 06/29/23 Naima Wright, IMPORT/EXPORT ADMINISTRATOR-ANIMAL PATHOLOGIST [address] [facility], [address] [place] [address] Nurse Practitioner Cardiology 11/07/23 Machine Puller And Laster Relationship Specialty Start Date End Date Ishmael Simon MD [address] [place] [place] [address] PCP - General Family Medicine 10/10/23 Team [...] March 27, 2024 End: March 27, 2024 Machine Puller And Laster Relationship Specialty Start Date End Date Ishmael Simon MD [address] [place] [address] PCP - General Family Medicine 06/29/23 Naima Wright, IMPORT/EXPORT ADMINISTRATOR-ANIMAL PATHOLOGIST [address] [facility], [address] [place] [address] Nurse Practitioner Cardiology 11/07/23 Machine Puller And Laster Relationship Specialty Start Date End Date Ishmael Simon MD [address] [place] [address] PCP - General Family Medicine 06/29/23 Naima Wright, IMPORT/EXPORT ADMINISTRATOR-ANIMAL PATHOLOGIST [address] [facility], [address] [place] [address] Nurse Practitioner Cardiology 11/07/23 Machine Puller And Laster Relationship Specialty Start Date End Date Ishmael Simon MD [address] [place] [address] PCP - General Family Medicine 10/10/23 Machine Puller And Laster Relationship Specialty Start Date End Date Ishmael Simon MD [address] [place] [address] PCP - General Family Medicine 10/10/23 Machine Puller And Laster Relationship Specialty Start Date End Date Ishmael Simon MD [address] [place] [address] PCP - General Family Medicine 10/10/23 Machine Puller And Laster Relationship Specialty Start Date End Date Ishmael Simon MD [address] [place] [address] PCP - General Family Medicine 06/29/23 Naima Wright, IMPORT/EXPORT ADMINISTRATOR-ANIMAL PATHOLOGIST [address] [facility], [facility] [[email or web address] [address] [place] [address] Nurse Practitioner Cardiology 11/07/23 Machine Puller And Laster Relationship Specialty Start Date End Date Ishmael Simon MD [address] [place] [address] PCP - General Family Medicine 10/10/23 Machine Puller And Laster Relationship Specialty Start Date End Date Ishmael Simon MD [address] [place] [address] PCP - General Family Medicine 10/10/23 Machine Puller And Laster Relationship Specialty Start Date End Date Ishmael Simon MD [address] [place] [address] PCP - General Family Medicine 10/10/23 Machine Puller And Laster Relationship Specialty Start Date End Date Ishmael Simon MD [address] [place] [address] PCP - General Family Medicine 10/10/23 Machine Puller And Laster Relationship Specialty Start Date End Date Ishmael Simon MD [address] [place] [address] PCP - General Family Medicine 10/10/23 Machine Puller And Laster Relationship Specialty Start Date End Date Ishmael Simon MD [address] [place] [address] PCP - General Family Medicine 10/10/23 Machine Puller And Laster Relationship Specialty Start Date End Date Ishmael Simon MD [address] [place] [address] PCP - General Family Medicine 10/10/23 Machine Puller And Laster Relationship Specialty Start Date End Date Ishmael Simon MD [address] [place] [address] PCP - General Family Medicine 10/10/23 Machine Puller And Laster Relationship Specialty Start Date End Date Ishmael Simon MD [address] [place] [address] PCP - General Family [facility] 06/29/23 Amador Son MD [address] [facility], [address] [address] Manufacturing Sr Engineer Electrophysiology 05/17/24 Machine Puller And Laster Relationship Specialty Start Date End Date Ishmael Simon MD [address] [place] [address] PCP - General [facility] Medicine 06/29/23 Amador Son MD [address] [facility], [address] [address] Manufacturing Sr Engineer Electrophysiology 05/17/24 Scheduled Active and Recently Administ [...] Continuous, Starting on Tue08/05/23 at 1230, Preprocedure, bilingual call center representative to EP lab 1221 [...] BE BASED ON THE PRIMARY CLINICAL RECORDS. [facility] [facility]. provides no warranty or guarantee of the accuracy or completeness of information in this document.
--- NOTE | 2024-05-27 17:46 | P.HP_ITS ---
HPI H&P: HPI History of Present Illness Chief complaint: COVID SYMPTOMS, COPD EXACERBATION Narrative: But doesPatient presented to the emergency room with about a 3-day history of increasing shortness of breath, to him it felt like when he had his acute renal failure or COVID, COVID in ER was negative, his creatinine is normal, have significant dyspnea and hypoxia requiring supplemental oxygen at 2 L with an O2 sat of only 90 to 91%, normally he wears oxygen only at bedtime, and does not any during the day with or without activity. Increasing cough also with increasing sputum production I saw patient up in the medical surgical floor, he was resting comfortably sitting at the bedside, only complaint is the cough and shortness of breath, does not have any chest pain or pressure, Opioid HPI Opioid Management Most Recent Pain and Opioid Data: Last Pain Scale 10 05/12/24 20:18 05/12/24 Last Pain Assessment 05/27/24 18:07 Last ORT Total Score 3 05/27/24 17:11 05/27/24 Last ORT Risk Category Low Risk 05/27/24 17:11 05/27/24 Review of Systems ROS Status of ROS 10 or more systems reviewed and unremark able except as noted in history and below PFSH PFSH Medical History (Updated 05/27/24 @ 15:58 by Yomaira Vyas MD) Right shoulder pain ?M25.511 - Pain in right shoulder (ICD-10) Obesity ?E66.9 - Obesity, unspecified (ICD-10) Kidney failure ?N19 - Unspecified kidney failure (ICD-10) Smoker ?F17.200 - Nicotine dependence, unspecified, uncomplicated (ICD-10) COPD (chronic obstructive pulmonary disease) ?J44.9 - Chronic obstructive pulmonary disease, unspecified (ICD-10) Hypertension ?I10 - Essential (primary) hypertension (ICD-10) Surgical History (Updated 05/27/24 @ 17:23 by Dora Lyons RN) H/O hernia repair ?Z98.890 - Other specified postprocedural states (ICD-10) ?Z87.19 - Personal history of other diseases of the digestive system (ICD-10) History of removal of cyst ?Z98.890 - Other specified postprocedural states (ICD-10) H/O elbow surgery ?Z98.890 - Other specified postprocedural states (ICD-10) S/P bladder repair ?Z98.890 - Other specified postprocedural states (ICD-10) S/P total hip arthroplasty ?Z96.649 - Presence of unspecified artificial hip joint (ICD-10) S/P cardiac pacemaker procedure ?Z95.0 - Presence of cardiac pacemaker (ICD-10) Family History (Updated 05/27/24 @ 17:24 by Dora Lyons RN) Mother Family history of cancer Family history of COPD (chronic obstructive pulmonary disease) Social History (Updated 05/27/24 @ 17:24 by Dora Lyons RN) Within the past year, how often did you have a drink containing alcohol: never Score interpretation: A score less than 4 is consistent with normal alcohol consumption. Smoking status: Current every day smoker Non-prescribed substance use: cannabis (any form) Highest level of school completed/degree received: high school graduate Little interest or pleasure in doing things: not at all Feeling down, depressed, or hopeless: not at all Meds Home Medications and Allergies Home Medications ?Medication ?Instructions ?Recorded ?Confirmed ?Type albuterol 90 mcg/actuation aerosol 90 mcg inhalation .Q6HRS PRN 10/14/22 05/27/24 History inhaler shortness of breath or wheezing baclofen 10 mg tablet 10 mg PO BID 10/14/22 05/27/24 History fluticasone fur. 100 mcg-umeclid 1 inh inhalation DAILY 10/14/22 05/27/24 History 62.5 mcg-vilant 25 mcg inhalat.powder (Trelegy Ellipta) furosemide 40 mg tablet 40 mg PO BID 10/14/22 05/27/24 History montelukast 10 mg tablet 10 mg PO DAILY 10/14/22 05/27/24 History nabumetone 500 mg tablet 500 mg PO BID 10/14/22 05/27/24 History omeprazole 40 mg capsule,delayed 40 mg PO DAILY 10/14/22 05/27/24 History release oxycodone-acetaminophen 7.5 mg-325 1 tab PO Q6H 10/14/22 05/27/24 History mg tablet spironolactone 100 mg tablet 100 mg PO DAILY 10/14/22 05/27/24 History cetirizine 10 mg tablet (24Hour 10 mg PO DAILY PRN allergy symptoms 04/16/24 05/27/24 History Allergy) gabapentin 300 mg capsule 300 mg PO .at bedtime 05/27/24 05/27/24 History Allergies Allergy/AdvReac Type Severity Reaction Status Date / Time No Known Drug Allergies Allergy Verified 05/12/24 19:34 Exam Constitutional Vital Signs, click to edit/add: Last Vital Signs Temp 98.6 F 05/27/24 12:27 Pulse 65 05/27/24 14:30 Resp 20 05/27/24 12:27 BP 154/80 H 05/27/24 16:00 Pulse Ox 91 L 05/27/24 16:50 O2 Del Method Room Air 05/27/24 14:30 Documenting provider has reviewed patient's vital signs: yes Common normals: no apparent distress (Cough throughout the evaluation) Chest Common normals: inspection of chest normal Respiratory Common normals: normal respiratory effort and no retractions Cardio Common normals: regular rate and regular rhythm GI Common normals: soft to palpation and non-tender; negative for Normal to inspection, nondistended, normoactive bowel sounds present (Obese) Extremity Common normals: normal to inspection, full ROM and no clubbing, cyanosis or edema Results Labs Labs: Short CBC 05/27/24 Range/Units 15:11 WBC 8.8 (4.0-11.0) 10^3/uL Hgb 15.1 (14.0-18.0) g/dL Hct 44.8 (42.0-54.0) % Plt Count 200 (150-450) 10^3/uL BMP 05/27/24 15:11 Sodium 135 L Potassium 3.9 Chloride 97 L Carbon Dioxide 27.1 BUN 14.0 Creatinine 1.12 Glucose 130 H Calcium 8.7 Liver Function 05/27/24 Range/Units 15:11 Total Bilirubin 0.6 (0.2-1.0) mg/dL AST 30 (15-37) U/L ALT 47 (16-63) U/L Alkaline Phosphatase 98 (46-116) U/L Albumin 3.6 (3.4-5.0) g/dL Assessment and Plan Assessment and Plan (1) Increased oxygen demand: (2) COPD exacerbation: (3) Lumbar degenerative disc disease: (4) Hypertension: Plan Admission findings: Uncontrolled hypertension, acute hypoxia with O2 sat 90% on 2 L, normally he is in the upper 90s on his 2 L but he only wears that at bedtime, chest x-ray clear patient found of acute exacerbation of COPD Acute exacerbation of nocturnal oxygen dependent COPD-chronic hypoxic respiratory failure -steroids, I was able to obtain a sputum sample, antibiotics, frequent aerosol treatments. Try to wean off of supplemental oxygen back to his baseline, again his baseline is no supplemental oxygen during the day and only wears it at bedtime Lumbar disc disease-on medications, continue those Chronic fluid retention-his creatinine is normal, does have some hyponatremia, maintain current diuretics, states has been trying to be weaned off of these in the past and again significant weight in the matter of 2 to 3 days Admission status: Patient with acute exacerbation of COPD, medically necessary treatment likely will span 2 midnights secondary to the hypoxia, inpatient status
[2024-05-27] MEDS: FUROSEMIDE 40 MG TABLET PO (21:01)
[2024-05-27] MEDS: METHYLPREDNISOLONE SOD SUCC PF 125 MG/2 ML VIAL IVP (21:01)
[2024-05-27] MEDS: BACLOFEN 10 MG TABLET PO (21:01)
[2024-05-27] MEDS: GABAPENTIN 300 MG CAPSULE PO (21:01)
[2024-05-27] MEDS: NABUMETONE 500 MG TABLET PO (21:02)
[2024-05-27] MEDS: LEVOFLOXACIN IN DEXTROSE 5 % 750 MG/150 ML PREMIX 100 MG IV (21:02)
[2024-05-28] VITALS (7 sets, daily range): BP systolic 152–155; BP diastolic 70–80; PULSE 65–76; TEMP 36.3–36.8; O2SAT 91–95
[2024-05-28] MEDS: METHYLPREDNISOLONE SOD SUCC PF 125 MG/2 ML VIAL IVP ×2 (03:01→08:27)
[2024-05-28] MEDS: IPRATROPIUM/ALBUTEROL SULFATE 3 ML AMPUL.NEB IH ×2 (04:14→11:48)
[2024-05-28 05:58] LABS: Basophils Percent Auto 0.1 % (0.2-2.0); Hemoglobin 15.2 g/dL (14.0-18.0); Immature Granulocytes Abs Auto 0.06 10^3/uL (0.00-0.03); Immature Granulocytes Pct Auto 0.9 % (0.0-0.5); Lymphocytes Absolute Auto 0.7 10^3/uL (1.2-3.8); Lymphocytes Percent Auto 10.3 % (20.5-60.0); Mean Corpuscular HGB Conc 33.8 g/dL (29.9-35.2); Mean Corpuscular Hemoglobin 31.1 pg (25.9-34.0); Mean Corpuscular Volume 92.2 fL (80.0-94.0); Mean Platelet Volume 10.1 fL (9.5-13.5); Monocytes Absolute Auto 0.1 10^3/uL (0.3-0.8); Monocytes Percent Auto 1.5 % (1.7-12.0); Neutrophils Absolute Auto 5.9 10^3/uL (1.4-6.5); Neutrophils Percent Auto 87.2 % (43.0-75.0); Platelet Count 206 10^3/uL (150-450); Red Blood Count 4.88 10^6/uL (4.70-6.10); Red Cell Distribution Width 12.5 % (11.0-15.0); White Blood Count 6.7 10^3/uL (4.0-11.0)
[2024-05-28 06:07] LABS: Anion Gap 16.4; BUN Creatinine Ratio 14.2; Calcium 8.7 mg/dL (8.5-10.1); Carbon Dioxide 24.7 mmol/L (21.0-32.0); Chloride 98 mmol/L (98-107); Estimated GFR (African America >60 (>=60 mL/min/1.73m^2); Estimated GFR (Non-African Ame 54 (>=60 mL/min/1.73m^2); Glucose 248 mg/dL (74-106); Potassium 4.1 mmol/L (3.5-5.1); Sodium 135 mmol/L (136-145)
--- OUTSIDE RECORDS SUMMARY | 2024-05-28 08:19 | XMS_ITS | CCD ---
Author Organization [facility] CliniSytx Care Team Providers Care Wet Finisher Wool Name Role Phone SIMONE RUIZ Admitting Unavailable SIMONE RUIZ Attending Unavailable ISHMAEL SIMON Referring Unavailable ISHMAEL SIMON Primary Care Unavailable JEY ELISE R Attending Unavailable JEY ELISE R Surgeon Unavailable [place] Procedure Practitioner Unavailab ISHMAEL Campoverde Primary Care [...] ., WILDER Attending Anupama vailable NADJANEE, DR IHSMAEL Rae Primary Care Unavailable NADERER, DR ISHMAEL [...] LANE, Ishmael Vallejo Primary Care Provider Adriana BAILEY-NATURAL FOODS CLERK, Naima E Unavailable Ishmael Simon MD Primary Care Provider Ishmael Simon MD Primary Care Provider Rubio VP SOFTWARE-CDanielle Attending Provider [phone] Danielle Bergeron Attending Unavailable ChloeererIshmael Primary Care Unavailable Danielle Bergeron Admitting Unavailable Danielle Bergeron Attending Unavailable Chloeeremarilee, Ishmael Primary Care Unavailable Danielle Bergeron Admitting Unavailable NADERER, ISHMAEL Attending Unavailable NADERER, ISHMAEL Attending Unavailable NADERER, ISHMAEL Attending Unavailable NADERER, ISHMAEL Attending Unavailable Amy LANE, Jong Villalobos Attending Unavailable Amador Son MD Unavailable [phone] VALENTINO TY Attending Unavailable [facility] Hunt SY Primary Care Unavailabl e TITOOULNIC, MOURHAF Referring Unavailable [facility] Primary Care Unavailabl e SHAN SONTO N Attending Unavailable NADERERISHMAEL SY Primary Care Unavailabl e TITOOULHOMEI MOURHAF Referring Unavailable HUY AMADOR N Attending Unavailable NADERER, ISHMAEL SY Primary Care Unavailabl e NADERER, ISHMAEL [place] Primary Care Unavailabl e NAIMA WRIGHT E Attending Unavaila ble NADERER, ISHMAEL SY Primary Care Unavailabl e TRABOULSSI, BETHANYF Attending Unavailable KARSON MOURHAF Referring Unavailable NADEREISHMAEL Hunt SY Primary Care Unavailabl e HUY AMADOR N Attending Unavailable ADRIANA NAIMA E Referring Unavaila ble NADERERISHMAEL SY Primary Care Unavailabl e ADRIANA NAIMA E Referring Unavaila ble NADERER, ISHMAEL [place] Primary Care Unavailabl e HUY, AMADOR N [...] hyperglycemia, without long-term current use of insulin ([facility]) Inject 0.75 mg under the skin 1 [...] dose by inhal ation in the morning Lmuzdqnbwkt-Litxvncqj-Orxouo (Trelegy El lipta) 100-62.5-25 MCG/ACT aerosol powder [...] 1 capsule by inhalation once daily Tiotropium [place] (Spiriva With Handihaler) 18 mcg capsule, w/inhalation [...] (BMI) of 37.0 to 37.9 in adult ([facility])] Onset: 04-13-2023 04-24-2024 Chronic Other nutritional; endocrine; [...] 04-24-2024 04-24-2024 Other aftercare (1 source) Other medical research associate (current) drug therapy; Translations: [OTH EQUAL OPPORTUNITY ASSISTANT CURRENT DRUG THERAPY] Onset: 05-13-2022 Episodic Other aftercare (13 sources) Long-term current use of drug therapy; Translations: [Other medical research associate (current) drug therapy] Onset: 04-13-2023 04-13-2023 Episodic [...] Device Check - In Cl inicon 05-23-[address] [facility] Work Phone: Radiology Study observation (narrative) [facility] Work Phone: ECG 12 lead (Clinic Performe d)on 05-23-2024 EKG performed today shows atrial paced rhythm at rate of 74 bpm QRS ration 100 ms QT corrected 448 ms. Rhythm strip shows the same pattern. [facility] Work Phone: [facility] Work Phone: MLR HEMOGLOBIN A1Con 024 Glucose [Mass/Vol] 131 mg/dL [facility] HbA1c (Bld) [Mass fraction] 6.2 % 4.5 - 6.2 % [facility] Comment on above: ADA RECOMMENDED LIMI T 4.0 - 6.0 ADA THERAPEUTIC TARGET < 7.0 ACTION SUGGESTED > 7.0 [facility] Magnetic resonance imaging r eportOrdered By: Germán Murphy on 03-27-2024 Study report [facility] Main [place] [address] [place], [place] [id number] MRI Report Signed Patient: Liliana Michaels JR MR#: [id number] : 1965 Acct:[id number] Age/Sex: 59 / M ADM Date: 4 Loc: MR Room: Type: [facility] Attending Dr: Danielle GAYTAN Copies to: LUKAS Burns~ Ordering Provider: LUKAS Burns Date of Service: 03/27/24 MR/MR lumbar spine wo con: LUMBAR DDD ([id number]) XR/XR pre/post mri xray: LUMBAR DDD MRI [...] Murphy Jr., D.OAtiya03/27/2024 11:57 AM Dictation Location: [place] [address] Transcribed By: [facility] 03/27/24 1157 Dictated By: Germán Murphy Jr, DO 03/27/24 1148 Signed By: 03/27/24 1157 [facility] XR pre/post mri xrayon 03-27 XR pre/post mri xray [facility] [place] [address] MRI Report Signed Patient: Liliana Michaels JR MR#: [id number] : 1965 Acct:[id number] Age/Sex: 59 / M ADM Date: 03/27/24 Loc: MR Room: Type: [facility] Attending Dr: Danielle GAYTAN Copies to: LUKAS Burns Ordering Provider: LUKAS Burns Date of Service: 03/27/24 MR/MR lumbar spine wo con: LUMBAR DDD ([id number]) XR/XR pre/post mri xray: LUMBAR DDD MRI [...] Murphy Jr., D.O.03/27/2024 11:57 AM Dictation Location: [place] [address] Transcribed By: [facility] 03/27/24 1157 Dictated By: Germán Murphy Jr, DO 03/27/24 1148 Signed By: 03/27/24 1157 Normal [facility] XR chest 2V*on 03-16-2024 XR chest 2V* [facility] Main [place] [address] [place] [address] XRay Report Signed Patient: Liliana Michaels JR MR#: [id number] : 1965 Acct:[id number] Age/Sex: 59 / M ADM Date: 03/16/24 Loc: [facility] Room: Type: [facility] Attending Dr: Danielle GAYTAN Copies to: [...] process. Intact cardiac device Impression dictated by: lEia Rodrigez M.D.03/16/2024 8:54 AM Dictation Location: [place] [address] Transcribed By: [facility] 03/16/24 0854 Dictated By: Elia Rodrigez DO 03/16/24 0849 Signed By: 03/16/24 0854 Normal [facility] Cardiac Device Check - Remot neeta 02-14-[address] [facility] Work Phone: Radiology Study observation (narrative) [facility] Work Phone: TBH UA (CLEAN/CATCH) MICROSC OPIC [...] Test strip Ql (U) LARGE Abnormal NEGATIVE [facility] NITRITE URINE Negative NEGATIVE [facility] pH (U) 6.0 [pH] 5.0 - 9.0 [facility] PROTEIN URINE Negative NEG/TRACE mg/dL [facility] SPECIFIC GRAVITY URINE 1.015 1.005 - 1.025 [facility] URINE MICROSCOPIC INDICATED YES [facility] UROBILINOGEN URINE 0.2 EU/dL 0.2 - 1.0 EU/dL [facility] XR CHEST 2 VIEWSon XR CHEST 2 VIEWS Interpreted By: Sancho Gross, STUDY: XR CHEST 2 VIEWS; 11/09/2023 9:46 am INDICATION: Signs/Symptoms:Pacem marilyn. COMPARISON: 08/05/2023 ACCESSION NUMBER(S): [id number] ORDERING CLINICIAN: ANA M KUMARI FINDINGS: Left-sided pacemaker in place. CARDIOMEDIASTINAL SILHOUETTE: Cardiomediastinal silhouette is normal in size and configuration. LUNGS: Lungs are clear. ABDOMEN: No remarkable upper abdominal findings. BONES: No acute osseous changes. IMPRESSION: 1. No evidence of acute cardiopulmonary process. MACRO: None Signed by: Sancho Gross 11/10/2023 8:35 AM Dictation workstation: [id number] [facility] Comment on above: Order Comment: Repor t to [facility] registration on 11/09/2023 at 8:30 AM for chest x-ray and device check prior to appointment with Dr. Son at 10 AM Cardiac Device Check - Remot neeta 09-26-[address] [facility] Work Phone: Radiology Study observation (narrative) [facility] Work Phone: US.doppler Upper extremity v ein - lefton 08-10-2023 Exam negative for acute deep venous thrombosis in the left upper extremity MACRO: None Signed by: Simone Ramos 08/10/2023 3:07 PM Dictation workstation: [id number] MMODAL Interpreted By: Simone Ramos, STUDY: VASC US UPPER EXTREMITY VENOUS DUPLEX LEFT; 08/10/2023 2:47 pm INDICATION: Signs/Symptoms: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 COMPARISON: Portable chest 05 August 2023 ACCESSION NUMBER(S): [id number] ORDERING CLINICIAN: NAIMA WRIGHT TECHNIQUE: Vascular ultrasound [...] Portable chest 05 August 2023 ACCESSION NUMBER(S): [id number] ORDERING CLINICIAN: NAIMA WRIGHT TECHNIQUE: Vascular ultrasound [...] Simone Ramos 08/10/2023 3:07 PM Dictation workstation: [id number] [facility] Work Phone: Radiology Study observation (narrative) [facility] Work Phone: US.doppler Upper extremity v ein - leftOrdered By: Simone Ramos on 08-10-[address] [facility] Work Phone: VASC US UPPER EXTREMITY VENO US DUPLEX LEFTon 08-10-2023 VASC US UPPER EXTREMITY VENOUS DUPLEX LEFT Interpreted By: Simone Ramos, STUDY: VASC US UPPER EXTREMITY VENOUS DUPLEX LEFT; 08/10/2023 2:47 pm INDICATION: Signs/Symptoms: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 COMPARISON: Portable chest 05 August 2023 ACCESSION NUMBER(S): [id number] ORDERING CLINICIAN: NAIMA WRIGHT TECHNIQUE: Vascular ultrasound [...] Simone Ramos 08/10/2023 3:07 PM Dictation workstation: [id number] [facility] Basic metabolic 2000 panelon 08-05-2023 Anion gap [Moles/Vol] 12 mmol/L 10 - 2 0 mmol/L [facility] Calcium [Mass/Vol] 9.6 mg/dL 8.6 - 10. 3 mg/dL [facility] Chloride [Moles/Vol] 102 mmol/L 98 - 10 7 mmol/L [facility] CO2 [Moles/Vol] 29 mmol/L 21 - 32 mmol/L [facility] Creatinine [Mass/Vol] 1.12 mg/dL 0.50 - 1.30 mg/dL [facility] GFR/1.73 sq M.predicted among non-blacks MDRD (S/P/Bld) [Vol rate/Area] 76 mL/min/{1.73_m2} - PINF [facility] Comment on above: Calculations of yang mated GFR are performed using the 2020 CKD-EPI Study Refit equation without the race variable for the IDMS-Traceable creatinine methods. https://jasn.asnjournals.org/content/early/ASN.2020 626969 Glucose [Mass/Vol] 95 mg/dL 74 - 99 mg/dL [facility] Interpretation and review of laboratory results Normal [facility] Potassium [Moles/Vol] 4.0 mmol/L 3.5 - 5.3 mmol/L [facility] Sodium [Moles/Vol] 139 mmol/L 136 - 145 mmol/L [facility] Urea nitrogen [Mass/Vol] 17 mg/dL 6 - 23 mg/dL [facility] Anion gap [Moles/Vol] 12 mmol/L Normal 10-20 [facility] Comment on above: Performed By: #### 2 4321-2 #### JAIMEE QURESHI ([id number]) [facility] ([facility]) [address] [place] [address] 56161 Calcium [Mass/Vol] 9.6 mg/dL Normal 8.6-10.3 [facility] Comment on above: Performed By: #### 2 4321-2 #### JAIMEE QURESHI ([id number]) [facility] ([facility]) [address] [place] [address] 73403 Chloride [Moles/Vol] 102 mmol/L Normal 98-107 [facility] Comment on above: Performed By: #### 2 4321-2 #### JAIMEE QURESHI ([id number]) [facility] ([facility]) [address] [place] [address] 75780 CO2 [Moles/Vol] 29 mmol/L Normal 21-32 [facility] Comment on above: Performed By: #### 2 4321-2 #### JAIMEE QURESHI ([id number]) [facility] ([facility]) [address] [place] [address] 70749 Creatinine [Mass/Vol] 1.12 mg/dL Normal 0.50-1.30 [facility] Comment on above: Performed By: #### 2 4321-2 #### JAIMEE QURESHI ([id number]) [facility] ([facility]) [address] [place] [address] 44206 Glomerular filtration rate/1.73 sq M.predicted 76 mL/min/1.73m*2 Normal >60 [facility] Comment on above: Result Comment: Calc ulations of estimated GFR are performed using the 2020 CKD-EPI Study Refit equation without the race variable for the IDMS-Traceable creatinine methods. https://jasn.asnjournals.org/content/ASN 807042 Performed By: #### 2 4321-2 #### JAIMEE QURESHI ([id number]) [facility] ([facility]) [address] [place] [address] 35255 Glucose [Mass/Vol] 95 mg/dL Normal 74-99 [facility] Comment on above: Performed By: #### 2 4321-2 #### JAIMEE QURESHI ([id number]) [facility] ([facility]) [address] [place] [address] 76678 Potassium [Moles/Vol] 4.0 mmol/L Normal 3.5-5.3 [facility] Comment on above: Performed By: #### 2 4321-2 #### JAIMEE QURESHI ([id number]) [facility] ([facility]) [address] [place] [address] 47561 Sodium [Moles/Vol] 139 mmol/L Normal 136-145 [facility] Comment on above: Performed By: #### 2 4321-2 #### JAIMEE QURESHI ([id number]) [facility] ([facility]) [address] [place] [address] 17081 Urea nitrogen [Mass/Vol] 17 mg/dL Normal 6-23 [facility] Comment on above: Performed By: #### 2 4321-2 #### JAIMEE QURESHI ([id number]) [facility] ([facility]) [address] [place] [address] 20332 CBC panel Auto (Bld)on 08-04 Erythrocyte distribution width (RBC) [Ratio] 13.0 % 11.5 - 14.5 % [facility] Hematocrit (Bld) [Volume fraction] 46.9 % 41.0 - 52.0 % [facility] Hemoglobin (Bld) [Mass/Vol] 16.1 g/dL 13.5 - 17.5 g/dL [facility] Interpretation and review of laboratory results Normal [facility] MCH (RBC) [Entitic mass] 31.5 pg 26.0 - 34.[address] [facility] MCHC (RBC) [Mass/Vol] 34.3 g/dL 32.0 - 36.0 g/dL [facility] MCV (RBC) [Entitic vol] 92 fL 80 - [address] [facility] Nucleated RBC/100 WBC (Bld) [Ratio] 0.0 % [facility] Platelets (Bld) [#/Vol] 279 10*3/uL [facility] RBC (Bld) [#/Vol] 5.11 10*6/uL [facility] WBC (Bld) [#/Vol] 8.9 10*3/uL [facility] Erythrocyte distribution width (RBC) [Ratio] 13.0 % Normal 11.5-14.5 [facility] Comment on above: Performed By: #### 5 8410-2 #### JAIMEE QURESHI ([id number]) [facility] (C) [address] [place] [address] 06390 Hematocrit (Bld) [Volume fraction] 46.9 % Normal 41.0-52.0 [facility] Comment on above: Performed By: #### 5 8410-2 #### JAIMEE QURESHI (25091) [facility] ([facility]) [address] [place] [address] 77296 Hemoglobin (Bld) [Mass/Vol] 16.1 g/dL Normal 13.5-17.5 [facility] Comment on above: Performed By: #### 5 8410-2 #### JAIMEE QURESHI (48336) [facility] ([facility]) [address] [place] [address] 09714 MCH (RBC) [Entitic mass] 31.5 pg Normal 26.0-34.0 [facility] Comment on above: Performed By: #### 5 8410-2 #### JAIMEE QURESHI (81457) [facility] ([facility]) [address] [place] [address] 18955 MCHC (RBC) [Mass/Vol] 34.3 g/dL Normal 32.0-36.0 [facility] Comment on above: Performed By: #### 5 8410-2 #### JAIMEE QURESHI (94052) [facility] ([facility]) [address] [place] [address] 17146 MCV (RBC) [Entitic vol] 92 fL Normal 80-100 [facility] Comment on above: Performed By: #### 5 8410-2 #### JAIMEE QURESHI (59512) [facility] [address] [place] [address] 64631 Nucleated RBC/100 WBC (Bld) [Ratio] 0.0 /100 WBCs Normal 0.0-0.0 [facility] Comment on above: Performed By: #### 5 8410-2 #### JAIMEE QURESHI (67794) [facility] [address] [place] [address] 58018 Platelets (Bld) [#/Vol] 279 x10*3/uL Normal 150-450 [facility] Comment on above: Performed By: #### 5 8410-2 #### JAIMEE QURESHI (22786) [facility] ([facility] [address] [place] [address] 53942 RBC (Bld) [#/Vol] 5.11 x10*6/uL Normal 4.50-5.90 [facility] Comment on above: Performed By: #### 5 8410-2 #### JAIMEE QURESHI ([id number]) [facility] ([facility]) [address] [place] [address] 48667 WBC (Bld) [#/Vol] 8.9 x10*3/uL Normal 4.4-11.3 [facility] Comment on above: Performed By: #### 5 8410-2 #### JAIMEE QURESHI (84727) [facility] ([facility] [address] [place] [address] 72635 Electrophysiology studyon [facility] Work Phone: PT and aPTT panel Coag (PPP) on 08-05-2023 aPTT Coag (PPP) [Time] 34 s [facility] INR Coag (PPP) [Relative time] 1.0 {INR} 0.9 - 1.[address] [facility] Interpretation and review of laboratory results Normal [facility] PT Coag (PPP) [Time] 11.0 s [facility] The APTT is no longer used for monitoring Unfractionated Heparin Therapy. For monitoring Heparin Therapy, use the Heparin Assay. [facility] aPTT Coag (PPP) [Time] 34 s Normal 27-38 [facility] Comment on above: Order Comment: The A PTT is no longer used for monitoring Unfractionated Heparin Therapy. For monitoring Heparin Therapy, use the Heparin Assay. Performed By: #### 3 4529-8 #### JAIMEE QURESHI ([id number]) [facility] ([facility] [address] [place] [address] 56086 INR Coag (PPP) [Relative time] 1.0 Normal 0.9-1.1 [facility] Comment on above: Order Comment: The A PTT is no longer used for monitoring Unfractionated Heparin Therapy. For monitoring Heparin Therapy, use the Heparin Assay. Performed By: #### 3 4529-8 #### JAIMEE QURESHI ([id number]) [facility] ([facility]) [address] [place] [address] 38347 PT Coag (PPP) [Time] 11.0 s Normal 9.8-12.8 [facility] Comment on above: Order Comment: The A PTT is no longer used for monitoring Unfractionated Heparin Therapy. For monitoring Heparin Therapy, use the Heparin Assay. Performed By: #### 3 4529-8 #### JAIMEE QURESHI ([id number]) [facility] ([facility]) [address] [place] [address] 32954 TRANSTHORACIC ECHO (TTE) MARIA ETRESA Olmos 08-05-2023 TRANSTHORACIC ECHO (TTE) COMPLETE [address] [address] TRANSTHORACIC ECHOCARDIOGRAM REPORT Patient Name: LILIANA MICHAELS Reading Physician: [id number] Batsheva Morris MD, [facility] Study Date: 08/05/2023 Ordering Provider: [id number] ANA M ANGEL MRN/PID: [id number] Fellow: Nurse: Date of /Age: 10 1965 Hot Shot: Eli Pisano RDGRACY Gender: M Additional Staff: Height: 162.56 cm Admit Date: Weight: 90.72 kg Admission Status: Outpatient BSA / BMI: 1.96 m2 / 34.33 Department Location: [facility]/m2 Echo Lab Blood Pressure: 128 /73 mmHg Study Type: TRANSTHORACIC ECHO (TTE) COMPLETE Diagnosis/ICD: Bradycardia, unspecified-R00.1 Indication: Abnormal EKG, Pre-EP CPT Codes: Echo Complete w Full Doppler-93547 Study Detail: The following Echo studies were [...] [place] Area A2C: 18.9 cm2 LA Major Henderson A4C: 5.8 cm LA Major [place] A2C: 5.5 cm LA Volume Index: 27.0 [...] 1.3 m/s (0.6-0.9m/s) PV Max P.6 mmHg [id number] Batsheva Morris MD, FACC Electronically signed on 08/05/2023 at 2:30:14 PM Final Normal [facility] US Heart TransthoracicOrdere d By: Batsheva Morris on 08-05-2023 Aortic Valve Area by Continuity of Peak Velocity 2.[address] [facility] Work Phone: Aortic Valve Area by Continuity of VTI 2.[address] [facility] Work Phone: AV mn grad 4.[address] [facility] Work Phone: AV pk grad 8.[address] [facility] Work Phone: AV pk abiodun 1.43 m/s [facility] Work Phone: LA vol index A/L 29.3 ml/m2 [facility] Work Phone: LV A4C EF 62.[address] [facility] Work Phone: LV biplane EF 60 % [facility] Work Phone: LVIDd 5.[address] [facility] Work Phone: LVOT diam 2.[address] [facility] Work Phone: MV avg E/e' ratio 7.78 [facility] Work Phone: MV E/A ratio 0.[address] [facility] Work Phone: RV free wall pk S' 15.40 cm/s [facility] Work Phone: RVSP 23.[address] [facility] Work Phone: Tricuspid annular plane systolic excursion 3.[address] [facility] Work Phone: [facility] Work Phone: US Heart Transthoracicon [place] [phone] TRANSTHORACIC ECHOCARDIOGRAM REPORT Patient Name: LILIANA Quiñones Physician: [id number] Morris MD, [facility] Study Date: 08/05/2023 Ordering Provider: [id number] ANA M ANGEL MRN/PID: [id number] Fellow: Nurse: Date of /Age: 10 1965 / 58 Hot Shot: Eli Pisano RDCS Gender: M Additional Staff: Height: 162.56 cm Admit Date: Weight: 90.72 kg Admission Status: Outpatient BSA / BMI: 1.96 m2 / 34.33 Department Location: [facility] kg/m2 Echo Lab Blood Pressure: 128 /73 mmHg Study Type: TRANSTHORACIC ECHO (TTE) COMPLETE Diagnosis/ICD: Bradycardia, unspecified-R00.1 Indication: Abnormal EKG, Pre-EP CPT Codes: Echo Complete w Full Doppler-09140 Study Detail: The following Echo studies were [...] [place] Area A2C: 18.9 cm2 [place] A4C: 5.8 cm [place] A2C: 5.5 cm [place] Volume Index: 27.0 [...] not included)... Batsheva Alexander MD - 08/05/2023 [place] [address] TRANSTHORACIC ECHOCARDIOGRAM REPORT Patient Name: LILIANA MICHAELS Reading Physician: [id number] Batsheva Morris MD, [facility] Study Date: 08/05/2023 Ordering Provider: [id number] ANA M Echo RITA MRN/PID: [id number] Fellow: Nurse: Date of /Age: 10 1965 / 58 Hot Shot: Eli Pisano RDGRACY Gender: M Additional Staff: Height: 162.56 cm Admit Date: Weight: 90.72 kg Admission Status: Outpatient BSA / BMI: 1.96 m2 / 34.33 Department Location: [place] [address] Echo Lab Blood Pressure: 128 /73 mmHg Study Type: TRANSTHORACIC ECHO (TTE) COMPLETE Diagnosis/ICD: Bradycardia, unspecified-R00.1 Indication: Abnormal EKG, Pre-EP CPT Codes: Echo Complete w Full Doppler-97599 Study Detail: The following Echo studies were [...] [place] Area A2C: 18.9 cm2 [place] A4C: 5.8 cm [place] A2C: 5.5 cm [place] Volume Index: 27.0 [...] 1.3 m/s (0.6-0.9m/s) PV Max P.6 mmHg [id number] Batsheva Morris MD, [facility] Electronically signed on 08/05/2023 at 2:30:14 PM Final [facility] Work Phone: XR CHEST 1 VIEWon 08-05-2023 XR CHEST 1 VIEW Interpreted By: Salvatore Clark, STUDY: XR CHEST 1 VIEW INDICATION: Signs/Symptoms:post implant. COMPARISON: None ACCESSION NUMBER(S): [id number] ORDERING CLINICIAN: ANA M KUMARI FINDINGS: No consolidation, effusion, edema, or pneumothorax. Pacemaker placed without pneumothorax. Position satisfactory. IMPRESSION: Status post pacemaker placement. Signed by: Salvatore Clark 08/05/2023 6:10 PM Dictation workstation: [id number] [facility] Comment on above: Order Comment: Wet r ead. XR Chest Single viewon 08-04 Status post pacemaker placement. Signed by: Salvatore Clark 08/05/2023 6:10 PM Dictation workstation: [id number] MMODAL Interpreted By: Salvatore Clark, STUDY: XR CHEST 1 VIEW INDICATION: Signs/Symptoms:post implant. COMPARISON: None ACCESSION NUMBER(S): [id number] ORDERING CLINICIAN: ANAM KUMARI FINDINGS: No consolidation, effusion, edema, or pneumothorax. Pacemaker placed without pneumothorax. Position satisfactory. [facility] MMODAL Salvatore Clark MD - 08/05/2023 Interpreted By: Salvatore Clark, STUDY: XR CHEST 1 VIEW INDICATION: Signs/Symptoms:post implant. COMPARISON: None ACCESSION NUMBER(S): [id number] ORDERING CLINICIAN: ANA M KUMARI FINDINGS: No consolidation, effusion, edema, or pneumothorax. Pacemaker placed without pneumothorax. Position satisfactory. IMPRESSION: Status post pacemaker placement. Signed by: Salvatore Clark 08/05/2023 6:10 PM Dictation workstation: [id number] [facility] Work Phone: Radiology Study observation (narrative) [facility] Work Phone: XR Chest Single viewOrdered By: Salvatore Clark on 08-05-[address] [facility] Work Phone: ECG 12 lead (Clinic Performe d)on 07-22-2023 EKG shows marked sinus bradycardia rate of 41 bpm QRS ration 100 ms QT corrected he had a 91 ms. Rhythm strip shows the same pattern. [facility] Work Phone: CT LUNG CANCER SCREENINGon [...] by: BATSHEVA ALVARADO Date: 2022-07-15 12:10 Normal [facility] Office Visit (Cardiology)on 07-14-2022 Follow-up visit Diagnoses/Problems [...] we can help. You may also call 5-078-RTASswabrNOW for free resources and assistance.; Status:Complete - Retrospective Authorization; Done: [id number] Patient Instructions Please bring all medicines, vitamins, [...] ischemic evaluation. He underwent cardiac catheterization in [place] which showed no significant obstructive disease 3. [...] BY MOUTH FOUR TIMES A DAY NEEDED Uxdlkz7w at bedtime Singulair 10 MG Oral TabletTAKE [...] Recorded: 14Jul2022 10:57AM Heart Rate34, L Radial Hnzfrtmg246, LUE, Sitting Xfowepets52, LUE, Sitting Height5 ft 4 in Owfsny360 lb BMI Cphjkvwlli30.96 kg/m2 BSA Calculated1.92 Tobacco Usea) Yes Patient encouraged to st (more content not included)... Normal [employer] Tobacco Screening.on 023 Adult depression screening assessment No [facility] [employer] DO Work Phone: Fall risk assessment a) No falls within the last year [facility] [employer] DO Work Phone: Tobacco use status CPHS a) Yes M [facility] [employer] DO Work Phone: Tobacco Screening. Yes [facility] [employer] DO Work Phone: CT ABD/PELV W CONon [...] by: FLEX JACOBS Date: 2022-06-11 10:06 Normal [facility] CBC AUTO DIFFon 05-07-2022 BASO # 0.1 103/ul Normal 0.0-0.1 [facility] Comment on above: Performed By: #### C BC #### [facility] [address] [place] [address] Dr. Britt Mendoza Basophils/100 WBC (Bld) 1.6 % Normal 0.2-2.0 [facility] Comment on above: Performed By: #### C BC #### [facility] [address] [place], [place] [address] Dr. rBitt Mendoza EO # 0.2 103/ul Normal 0.0-0.7 [facility] Comment on above: Performed By: #### C BC #### [facility] [address] [place] [address] [address] Britt Mendoza Eosinophils/100 WBC (Bld) 3.0 % Normal 0.9-7.0 [facility] Comment on above: Performed By: #### C BC #### [facility] [address] [place] [address] Dr. Britt Mendoza Erythrocyte distribution width (RBC) [Ratio] 12.4 % Normal 11.0-15.0 [facility] Comment on above: Performed By: #### C BC #### [facility] [address] [place] [address] Dr. Britt Mendoza Hematocrit (Bld) [Volume fraction] 43.2 % Normal 42.0-54.0 [facility] Comment on above: Performed By: #### C BC #### [facility] [address] [place] [address] Dr. Britt Mendoza Hemoglobin (Bld) [Mass/Vol] 14.7 g/dL Normal 14.0-18.0 [facility] Comment on above: Performed By: #### C BC #### [facility] [address] [place] [address] Dr. Britt Mendoza IG # 0.11 10e3/ul Critically high 0.00-0.03 [facility] Comment on above: Performed By: #### C BC #### [facility] [address] [place] [address] Dr. Britt Mendoza IG % 1.4 % Critically high 0.0-0.5 [facility] Comment on above: Performed By: #### C BC #### [facility] [address] [place] [address] Dr. Britt Mendoza LYMPH # 1.7 103/ul Normal 1.2-3.8 [facility] Comment on above: Performed By: #### C BC #### [facility] [address] [place] [address] Dr. Britt Mendoza Lymphocytes/100 WBC (Bld) 21.6 % Normal 20.5-60.0 [facility] Comment on above: Performed By: #### C BC #### [facility] [address] [place] [address] Dr. Britt Mendoza MANUAL DIFF REQ NO Normal [facility] Comment on above: Performed By: #### C BC #### [facility] [address] [place] [address] Dr. Britt Mendoza MCH (RBC) [Entitic mass] 31.2 pg Normal 25.9-34.0 [facility] Comment on above: Performed By: #### C BC #### [facility] [address] [place] [address] Dr. Britt Mendoza MCHC (RBC) [Mass/Vol] 34.0 g/dL Normal 29.9-35.2 [facility] Comment on above: Performed By: #### C BC #### [facility] [address] [place] [address] Dr. Britt Mendoza MCV (RBC) [Entitic vol] 91.7 fL Normal 80.0-94.0 [facility] Comment on above: Performed By: #### C BC #### [facility] [address] [place] [address] Dr. Britt Mendoza MONO # 0.5 103/ul Normal 0.3-0.8 [facility] Comment on above: Performed By: #### C BC #### [facility] [address] [place] [address] Dr. Britt Mendoza Monocytes/100 WBC (Bld) 6.8 % Normal 1.7-12.0 [facility] Comment on above: Performed By: #### C BC #### [facility] [address] [place] [address] Dr. Britt Mendoza NEUT # 5.0 103/ul Normal 1.4-6.5 [facility] Comment on above: Performed By: #### C BC #### [facility] [address] [place] [address] Dr. Britt Mendoza Neutrophils/100 WBC (Bld) 65.6 % Normal 43.0-75.0 [facility] Comment on above: Performed By: #### C BC #### [facility] [address] [place] [address] Dr. Britt Mendoza Platelet mean volume (Bld) [Entitic vol] 9.7 fL Normal 9.5-13.5 [facility] Comment on above: Performed By: #### C BC #### [facility] [address] [place] [address] [address] Britt Mendoza PLT 244 103/ul Normal 150-450 [facility] Comment on above: Performed By: #### C BC #### [facility] [address] [place] [address] [address] Britt Mendoza RBC 4.71 106/ul Normal 4.70-6.10 [facility] Comment on above: Performed By: #### C BC #### [facility] [address] [place] [address] Dr. Britt Mendoza WBC 7.6 103/ul Normal 4.0-11.0 [facility] Comment on above: Performed By: #### C BC #### [facility] [address] [place] [address] Dr. Britt Mendoza GLYCOHEMOGLOBIN A1Con 2021 ADA RECOMMENDATION SEE BELOW Normal [facility] Comment on above: Result Comment: ADA RECOMMENDED LIMIT 4.0 - 6.0 ADA THERAPEUTIC TARGET < 7.0 ACTION SUGGESTED > 7.0 Performed By: #### A 1C ####[facility] [address] [place] [address]Dr. Britt Mendoza Glucose [Mass/Vol] 117 mg/dL Normal [facility] Comment on above: Performed By: #### A 1C ####[facility] [address] [place] [address]Dr. Britt Mendoza HbA1c (Bld) [Mass fraction] 5.7 % Normal 4.5-6.2 [facility] Comment on above: Performed By: #### A 1C ####[facility] [address] [place] [address]Dr. Britt Mendoza LIPID PROFILEon 05-07-2022 CHOL-HDL RATIO NORM SEE BELOW Normal [facility] Comment on above: Result Comment: 3.3 - 4.4 LOW RISK 4.4 - 7.1 AVERAGE RISK 7.1 - 11.0 MODERATE RISK >11.0 HIGH RISK Performed By: #### B MP, LIVER, LIPID, TSH ####[facility] [address] [place] [address]Dr. Britt Mendoza Cholesterol [Mass/Vol] 235 mg/dL Critically high <=200 [facility] Comment on above: Performed By: #### B MP, LIVER, LIPID, TSH ####[facility] [address] [place] [address]Dr. Britt Mendoza Cholesterol in HDL [Mass/Vol] 40 mg/dL Normal 40-60 [facility] Comment on above: Performed By: #### B MP, LIVER, LIPID, TSH ####[facility] [address] [place] [address]Dr. Britt Mendoza Cholesterol in LDL [Mass/Vol] 156.8 mg/dL Normal [facility] Comment on above: Performed By: #### B MP, LIVER, LIPID, TSH ####[facility] [address] [place] [address]Dr. Britt Mendoza Cholesterol.total/Viola sterol in HDL [Mass ratio] 5.9 {ratio} Normal [facility] Comment on above: Performed By: #### B MP, LIVER, LIPID, TSH ####[facility] [address] [place] [id number]. Anjalilan Mendoza HDL NORMAL > or = 60 mg/dl - LOW CARDIOVASCULAR RISK <40 mg/dl - HIGH CARDIOVASCULAR RISK Normal [facility] Comment on above: Performed By: #### B MP, LIVER, LIPID, TSH ####[facility] [address] [place] [phone]. Anjalilan Mendoza LDL CALC NORMAL SEE BELOW Normal [facility] Comment on above: Result Comment: <100 mg/dl OPTIMAL 100 - 129 mg/dl NEAR OR ABOVE OPTIMAL 130 - 159 mg/dl BORDERLINE HIGH 160 - 189 mg/dl HIGH >190 mg/dl VERY HIGH Performed By: #### B MP, LIVER, LIPID, TSH ####[facility] [address] [place] [address]Dr. Anjalilan Mendoza Triglyceride [Mass/Vol] 191 mg/dL Critically high <=150 [facility] Comment on above: Performed By: #### B MP, LIVER, LIPID, TSH ####[facility] [address] [place] [address]Dr. Britt Mendoza VLDL CALC 38.2 mg/dL Normal [facility] Comment on above: Performed By: #### B MP, LIVER, LIPID, TSH ####[facility] [address] [place] [address]Dr. Britt Mendoza LIVER PROFILEon 05-07-2022 Albumin [Mass/Vol] 3.6 g/dL Normal 3.4-5.0 [facility] Comment on above: Performed By: #### B MP, LIVER, LIPID, TSH ####[facility] [address] [place] [address]Dr. Britt Mendoza Albumin/Globulin [Mass ratio] 1.1 {ratio} Normal [facility] Comment on above: Performed By: #### B MP, LIVER, LIPID, TSH ####[facility] [address] [place] [address]Dr. Britt Mendoza ALP [Catalytic activity/Vol] 84 U/L Normal 46-116 [facility] Comment on above: Performed By: #### B MP, LIVER, LIPID, TSH ####[facility] [address] [place] [address]Dr. Britt Mendoza ALT [Catalytic activity/Vol] 34 U/L Normal 16-63 [facility] Comment on above: Performed By: #### B MP, LIVER, LIPID, TSH ####[facility] [address] [place] [address]Dr. Britt Mendzoa AST [Catalytic activity/Vol] 21 U/L Normal 15-37 [facility] Comment on above: Performed By: #### B MP, LIVER, LIPID, TSH ####[facility] [address] [place] [address]Dr. Britt Mendoza BILI, CONJUGATED 0.1 mg/dL Normal 0.0-0.2 [facility] Comment on above: Performed By: #### B MP, LIVER, LIPID, TSH ####[facility] [address] [place] [phone]. Britt Mendoza Bilirubin [Mass/Vol] 0.4 mg/dL Normal 0.2-1.0 [facility] Comment on above: Performed By: #### B MP, LIVER, LIPID, TSH ####[facility] [address] [place] [address]Dr. Britt Mendoza Globulin (S) [Mass/Vol] 3.4 g/dL Normal [facility] Comment on above: Performed By: #### B MP, LIVER, LIPID, TSH ####[facility] [address] [place] [address]Dr. Britt Mendoza Protein [Mass/Vol] 7.0 g/dL Normal 6.4-8.2 [facility] Comment on above: Performed By: #### B MP, LIVER, LIPID, TSH ####[facility] [address] [place] [address]Dr. Britt Mendoza PROF CHEM 8 (BAS METB)on Anion gap [Moles/Vol] 13.8 mmol/L Normal [facility] Comment on above: Result Comment: Prev iously reported as: -2.3 On 05/07/2022 13:50 By DM9 Performed By: #### B MP, LIVER, LIPID, TSH #### [facility] [address] [place] [address] [address] Britt Mendoza Calcium [Mass/Vol] 9.2 mg/dL Normal 8.5-10.[address] [facility] Comment on above: Performed By: #### B MP, LIVER, LIPID, TSH #### [facility] [address] [place] [address] [address] Britt Mendoza Chloride [Moles/Vol] 99 mmol/L Normal 98-107 [facility] Comment on above: Result Comment: Prev iously reported as: 106 On 05/07/2022 13:50 By DM9 Performed By: #### B MP, LIVER, LIPID, TSH #### [facility] [address] [place] [address] [address] Britt Mendoza CO2 [Moles/Vol] 27.3 mmol/L Normal 21.0-32.0 [facility] Comment on above: Result Comment: Prev iously reported as: 29.2 On 05/07/2022 13:50 By DM9 Performed By: #### B MP, LIVER, LIPID, TSH #### [facility] [address] [place] [address] [address] Britt Mendoza Creatinine [Mass/Vol] 1.12 mg/dL Normal 0.70-1.30 [facility] Comment on above: Performed By: #### B MP, LIVER, LIPID, TSH #### [facility] [address] [place] [address] [address] Britt Mendoza EGFR-AF NIGERIAN >60 Normal >=60 [facility] Comment on above: Performed By: #### B MP, LIVER, LIPID, TSH #### [facility] [address] [place] [address] Dr. Britt Mendoza EGFR-NON AF NIGERIAN >60 Normal >=60 [facility] Comment on above: Performed By: #### B MP, LIVER, LIPID, TSH #### [facility] [address] [place] [address] [address] Britt Mendoza Glucose [Mass/Vol] 108 mg/dL Critically high 74-106 [facility] Comment on above: Performed By: #### B MP, LIVER, LIPID, TSH #### [facility] [address] [place] [address] Dr. Britt Mendoza Potassium [Moles/Vol] 4.1 mmol/L Normal 3.5-5.1 [facility] Comment on above: Result Comment: Prev iously reported as: 3.9 On 05/07/2022 13:50 By DM9 Performed By: #### B MP, LIVER, LIPID, TSH #### [facility] [address] [place] [address] Dr. Britt Mendoza Sodium [Moles/Vol] 136 mmol/L Normal 136-145 [facility] Comment on above: Result Comment: Prev iously reported as: 129 On 05/07/2022 13:50 By DM9 Performed By: #### B MP, LIVER, LIPID, TSH #### [facility] [address] [place], [place] [address] Dr. Britt Mendoza Urea nitrogen [Mass/Vol] 26.0 mg/dL Critically high 7.0-18.0 [facility] Comment on above: Performed By: #### B MP, LIVER, LIPID, TSH #### [facility] [address] [place], [place] [address] Dr. Britt Mendoza Urea nitrogen/Creatinine [Mass ratio] 23.2 mg/mg Normal [facility] Comment on above: Performed By: #### B MP, LIVER, LIPID, TSH #### [facility] [address] [place], [place] [address] Dr. Britt Mendoza TSHon 05-07-2022 TSH 0.828 uIU/mL Normal 0.358-3.740 [facility] Comment on above: Performed By: #### B MP, LIVER, LIPID, TSH ####[facility] [address] [place], [place] [address]GzDr. Britt Mendoza VITAMIN D 25 OHon 05-07-2022 VIT D 25-OH 45.6 ng/mL Normal [facility] Comment on above: Performed By: #### V BRENDAN PSASC #### [facility] [address] [address] [address] Britt Mendoza VIT D RANGES SEE BELOW Normal [facility] Comment on above: Result Comment: <20 ng/mL Vit D deficient 20 - <30 ng/mL Vit D insufficient 30 - 100 ng/mL Vit D sufficient >100 ng/mL Potential Toxicity Performed By: #### V BRENDAN, PSASC #### [facility] [id number] Britt Mendoza Covid-19 PCR (CVDTB)on SARS-CoV-2 (COVID-19) RNA KATT+probe Ql (Unsp spec) Detected Critically abnormal NOT DETECTED [facility] Comment on above: Result Comment: This test is not yet approved or cleared by the [place] FDA. When there are no FDA-approved or cleared tests available, and other criteria are met, FDA can make tests available under an emergency access mechanism called an Emergency Use Authorization (EUA). The EUA for this test is supported by the [place] of Health and Human Service's declaration that [...] longer be used). Performed By: #### C [facility] ####[facility] [place] [id number]. Britt Mendoza Cardiac Stress Test 2021 Cardiac Stress Test [address], [place] [address] Exercise Stress Test Patient Name: LILIANA MICHAELS JRAtiya Ordering Physician: [id number] Ty MD Study Date: 02/15/2022 Reading Physician: [id number] Ty MD MRN/PID: [id number] Supervising Physician: [id number] Rivera MD Accession/Order#: [id number] Referring Physician: VALENTINO TY Date of : 1965 PCP: Ishmael Simon Gender: M Fellow: Height: 162.56 cm Nurse: Yunior Bhatti RN Weight: 81.65 kg Hot Shot: NA BSA: 1.87 m2 Technologist: BMI: 30.90 kg/m2 Additional Staff: Age: 56 years cc report to: Patient Location: cc report to: [id number] Valentino yT MD Study Type: Cardiac Stress Test Diagnosis/ICD: R94.31-Abnormal electrocardiogram [ECG] [EKG]; R00.1-Bradycardia, unspecified; R06.00-Dyspnea, unspecified Indication: Dyspnea Procedure/CPT: Stress Test Interpretation-[id number] ; Stress Test Supervision-[id number] Falls Risk: Low: Patient has low risk [...] 7. An element of chronotropic incompetency noted. [id number] Valentino Ty MD Electronically signed on 02/16/2022 at 2:52:20 PM Final Normal [facility] Cardiac Stress Test Please click on the link to view the study images [facility] Work Phone: Cardiac Stress Test [facility]Sandbeatrice y 250 DO Work Phone: Office Visit [...] Status:Hold For - Scheduling,Retrospec tive Authorization; Requested for:[id number]; Class 1 obesity with body mass index (BMI) of 30.0 to 30.9 in adult Healthy Weight Tips; Status:Complete - Retrospective Authorization; Done: [id number] Some eating tips that can help you lose weight.; Status:Complete - Retrospective Authorization; Done: [id number] Sinus bradycardia You need to stop smoking. Though it is not easy, more than half of all adult smokers have quit. We encourage you to write down all the reasons you should quit smoking and set a quit date for yourself. Ask us how we can help. You may also call 2-698-BDLZswabrNOW for free resources and assistance.; Status:Complete - Retrospective Authorization; Done: [id number] SocHx: Current smoker Continue with our present treatment plan.; Status:Complete - Retrospective Authorization; Done: 67Tyj0764 Tobacco Use Screening; Status:Complete; Done: [id number] Patient Instructions Please bring all medicines, vitamins, [...] This led to a cardiac evaluation in [place] and its not clear to me whether [...] Oral Capsule Delayed ReleaseTAKE 1 CAPSULE Daily Lqglnr8p at bedtime Sin (more content not included)... Normal [employer] Tobacco Screening.on 022 Adult depression screening assessment No [facility] [employer] 600 DO Work Phone: Fall risk assessment a) No falls within the last year [facility] [employer] 600 DO Work Phone: Tobacco use status CPHS a) Yes M [facility] [employer] 600 DO Work Phone: Tobacco Screening. Yes [facility] 600 DO Work Phone: Covid-19 PCR (CVDTB)on SARS-CoV-2 (COVID-19) RNA KATT+probe Ql (Unsp spec) Not detected Normal NOT DETECTED [facility] Comment on above: Result Comment: This test is not yet approved or cleared by the [place] FDA. When there are no FDA-approved or cleared tests available, and other criteria are met, FDA can make tests available under an emergency access mechanism called an Emergency Use Authorization (EUA). The EUA for this test is supported by the [employer] Worker of Health and Human Service's (HHS's) declaration [...] SARS-CoV-2. Performed By: #### C [facility] #### [facility] [address] [place] [address] Dr. Britt Mendoza Covid-19 PCR (CVDTB)on 11-07 SARS-CoV-2 (COVID-19) RNA KATT+probe Ql (Unsp spec) Not detected Normal NOT DETECTED [facility] Comment on above: Result Comment: This test is not yet approved or cleared by the [place] FDA. When there are no FDA-approved or cleared tests available, and other criteria are met, FDA can make tests available under an emergency access mechanism called an Emergency Use Authorization (EUA). The EUA for this test is supported by the [employer] Worker of Health and Human Service's (HHS's) declaration [...] SARS-CoV-2. Performed By: #### C [facility] ####[facility] [address] [place], [place] [address]OlAtiya Mendoza XR CHEST 2 Von 10-01-2021 XR [...] by: FLEX JACOBS Date: 2021-10-01 09:30 Normal [facility] Ambulatory Clinical Summaryo n 03-05-2021 Ambulatory Clinical Summary {[id number]}CD:[id number] Normal [facility] Historical Records Officeon 03-05-2021 Historical Records Office [id number] #1.00CD:127 Normal [facility] Patient Educationon 03-05-20 Patient Education Urology [...] these instructions at home: Medicines ? Take wiil-xyw-iawzezf and prescription medicines only as told by [...] of your (more content not included)... Normal [facility] Urology Office/Clinic Noteon 03-05-2021 Urology Office/Clinic [...] order. Ordered: Office Visit Level 4 Est 44812 2. Hypogonadism male (E29.1: Testicular hypofunction) noted [...] time. Ordered: Office Visit Level 4 Est 46938 3. BPH with urinary obstruction (N40.1: Benign prostatic hyperplasia with lower urinary tract symptoms) s/p Urolift September 2018. Pt is currently taking no bladder/prostate medication and is mostly satisfied with overall symptom control. has nocturia but attributes this to diuretics. Pt prefers to continue with no changes at this time. PCP checking PSAs per pt. Ordered: Office Visit Level 4 Est 07883 Orders: Urnls Dip Stick Auto w/o Microscopy POC 89445 offered f/u 1 yr but pt prefers PRN. Total time spent reviewing previous notes/results/conservation or heritage architect al documents, preparing the chart, conducting the encounter with the patient and family, ordering tests/medications, and documenting the encounter was 30 minutes. Follow-up With When Contact Information SIMONE JEAN BAPTISTE DC [address] [place] [address]- Additional Instructions: Patient Education Erectile Dysfunction Problem [...] inhalation powde (more content not included)... Normal [facility] Comment on above: Result Comment: Elec tronically Signed By: DANIEL MARTINEZ, TOMEKA Priest\.br\Date and Time Signed: 03/05/21 12:24 EDT MRI PELVIS WO CONTRASTon MRI PELVIS WO CONTRAST [facility] Department of Radiology [address] [place] [id number] Patient Name: LILIANA MICHAELS : 1965 Sex: M Age: Race: White Pt. Location: 18 Patient Status: Ordered Date: 09/10/2020 3:35:00 PM Completed Date: 10/03/2020 08:34 AM Requesting Provider: SIMONE RUIZ Attending Provider: Report Copy To: Signs & Symptoms: R10.2 Pelvic and perineal pain I10 History: [place], Right FOREIGN per clinic will fax [facility] auth# [id number] 09/16/20-10/17/20 cpt code 71085 *mla Comments: Right groin to r/o an [...] spine. Electronically signed: Dinh Miller. Transcribed by: [email or web address], User Resident: Electronically Signed by: DINH MILLER @ 10/03/2020 09:57 AM Normal [facility] Comment on above: Order Comment: Right groin to r/o an adductor tear; iliopsoas bursitis or injury Operative Reporton Operative Report MR#: [id number] [facility] Pt. Name: Liliana Michaels Room #: [...] Ruiz MD Date Trans: 09/10/2020 11:40 P/mmo DN_JN:[id number] cc: Ishmael Simon M.D. [address] [place] [address] [place] [facility] Coding Summary.on 09-01-2020 Coding Summary. CD:[id number] Gh0bWw+PGhlYWQ+PE1FV SQpA52pgKAnfQ1CW5eBZ J8ECXWENXTNCW3RFP0vd WU0DYgzO6RrasPf KcuxgKAeXH51MAw4BMF7 bJoiWMshpM2dhOGbT8h9 ClDmQE71hD25MYdwRBZf TeH7VnRrvsmgjEUt P6psDxPrmITeSpl+PHRh YmxlIHdpZHRoPScxMDAl RdOsaBrnEZ2cXx4zIDNz LWNvbGxhcHNlOiBj b8noVGQyETmhDL2bvNna W3GmaYA4ADHdg0q7Tg00 dHI+UDGhAQG0uRrlUUfj d367YcJir6tqFVP8 nOWeACndSVR5D72vs5P7 BCWeONLhTWL4fSK0sJ3o kQzxlnnqA0NuvFSzKqW4 TNQ6kGJoyZ7csXky xozilE6bVra+L63YOM6G EUDNAG8FCig4N4BsZyzl dHI+UW56MVXeRW33bAJe yIQsi3sbqLa3KvFm INHbSQC5rWjcGTvlh9Se DCSaX75oaRZkb3E1WOVt fPnddWHtLeGffEN9tU2u VWzwmgvkz4mcfbyd Xbdkm4pvlk88tO47W77a FMdaUQEvNLK5AMFbQDAr hIexxx6tsR0eJn0+IDxj q1wsw5mguDy2LzTw VQVqtqAbaGfaPZA2f2Uo Ux52O5RneObbl6GqGhl9 fe67fEDjq4A6fQF5OCyd OOBcqF8hXOguNqR8 EWAdCpAtpT40gFGgNXsh Xz5noSjehImuVT1cYPCk pqipXRCirS6uHSHnnRRd rGsvHZ2nRBJzcqvr o422QrYdPJC1PMBvxUMs A3TlmP6sVtRsTLBrXBIe Z8PvsVAwEJusD229DTht AvV0FTNnogWsL7Qz ORLpyEwkWnV4w8O0Ko8S z5UrygcbOJS4PRedOLA0 XwT4RqCxNtC2T2HwNny1 IJEiaAftQP7gR3Ge CHEdsftawqffnNZ1INXs LNXtrG10eQCgYKceTv3e c2F2k372YAYbNWFygF68 Ic2whLdsOHUvzQDK kF2wafrmy5qgtjpxGaOo HPYxLRx0QNi0HNBvxMti FmDuFXC1KwU3CXV3gBPh vY0dvIpmufdvwJ3d Oyc+U13wfB1iNVW8MCE1 ruhbGQKqafOxUP09AR32 D1PqCnvubPHhaHE+PGRp qkLzlWovDG3fPcKl o9hqc5YfVBamD5WwUEYl GNuqOhc9JHHhUUV8yCF8 oA4lUWXdOVflu7U2aCD4 Z3RbwmCurz7se1ln SZOuBRydW14hgUSqn2T3 QFSjeQL7ALOnrVkoIpYe iF52Sok+QIOoeDiho6As Fnsus7ccc3wpjTv7 IjMwJSIgdmFsaWduPSJ0 c1VxZw76I17dAVgjKGJi YGUpAMKbGOMpyOftmx2x oC2qYu4+PGNvbCB3 cVV3uA0pYRAhXtE3ZIfz R353TjNihLOnCdttp5zp n4satOd8XxUoCUJdsnIx zKrcVIU9j9AbBo94 Q72hOBsoFDQwWWLnDZQl HWAykHszec5tkI4fIs2+ YW4ve6fkfn50oF82wRK+ IVQyLLD0rLhjZSqh FRVynV2oHNjsQrG2RVGp IiRxaE89eVEqJMjyWj4g hGxuwFdwDR1cPHJghsbo r813MgWvr3ohAXQx tMMtWXqvYOS4N01qk0W7 KXIyJBQtPJP0zFM1zX4l bGlnbjogbGVmdDsgdmVy rIehYBkhVQhdU598 IHRvcDsnPlBhdGllbnQg WgLkIDf3H0OzQgb8WDXz eLyxQC1oeFLbZGxjHo3j yCytgNjcBR5nQAVx cpkpl108VqGvq3tcFUGy hRIaKJwbYEO4K28el2W1 DSLmCWXpDVE6gFP8jR2d bGlnbjogbGVmdDsg qhXilMojTNwsXFurE363 IHRvcDsnPkJpcnRoIERh sQC5TQ34VD92jOYod3C2 bSO7R6YxOHKggqti cbqbuAG5OMTwWJLbrB66 Lj3kdZlbDj7cPOXeZGM1 KMJsnVWoF7VwxN8iPoSm IZDvBGZkM9VrbHEc MGehN350ODzxIoQ5MQYd alYnP2PsTGQixYdzBqH2 r0X8Zd7VT5Y3KY69CH79 bTCpa2I3mLD7H9Hv GKNppkmkqszepEC2MZUq TNFjiH10Tk6mqCxzWn2s VDDgRZX6FXVtuCFlI2Bd gY9hSuUsJUVgAHEm O4OacDQlTLobY224SZxy LlC4IIGukjVhZ1DnUNHn vSjdLaQ7c0E1Hm9CETs3 VG19YU99lUOjx7G9 hCR6H7YqRLUwslnexver kDG1THSoMWAchN15Jo2b wAokOu7mPZEdGFO4GWFd bCScY9FrjM3wPtAd MDFgIEHeT6BjdBOnGWez D526SRtlXdG4MBQyvbSr H6LcBNVshMeoNnY0x0I7 Ps0GTZVrOM88GIL6 dZK1FD87DU75O9NlRher dGFibGU+PHRhYmxlIHdp ZHRoPScxMDAlJyBzdHls HE2cDw3fUSXeRLZh zKyqrMUeEjCtp9wlPNWw GTboIW8osUxeM3VnePZ1 UXMki2q2Vq60V71gU2Gb dXA+CQNalWL8bYL4 xT8dVuUuXzA1FJuxY423 OsCisVEeQkepw4gge1iy dOm9IwT6VUSpcbAjnUsp NSU3e2QrOi85B28r IHdpZHRoPSIxNSUiIHZh tVajdw5gcG0aDk6+PGNv sDI7gFR8aP7wKkLlEjG4 FCwdW256KjGdePOm Epcsx8dpp0kqoCn7YmFh RGLtomYdeBbpQRV3j4Vr Jm65V6CyiTavf7EbCsg4 kx43nJDwm2G6pJX0 K4MmGPFvgclkaJVseFjl TC7bOFCvnspuNTGccZ7m XLXcR9v6OmGmXwZ0BLac W1WnagQ6MBTfhIZc ZHwtMLU7F48fb4H3ZWOi WYOaYPU3uKI2oS0wiZov bjogbGVmdDsgdmVydGlj XKokHTvcB148IKRw jBxeQARpfN9sOSEksZYf pLssPO1vRECbugipEoeH BO8UXbfwKuEMVRvkTIoy dGQ+ZMUaLVC1sXwg FLbwKJZqhU8oOVJfN0l6 XnBmCoL8JGyrJ9UdOXXj fnfvAj06bO2mIfYpFrG1 OZnwO6EteeX9CDXr uPTlKUojAUP7M72rb1N9 DOGzROUnWAD6hIA8fE3a bGlnbjogbGVmdDsgdmVy dUknOFwaWBluH838 ZWOqvQmeHaRtDvZ9SiI2 XzS5W1TaNso7PKFkuVkf BX8jwXPwTMrnDf0quNmn kXtbJB5bUFBuckqa MHAfuF9tVQIifUHkvNhn KU6qDHDehnpre414YqEn QRU2SLHhaULzP9VygV2n QxRfBQPiUFDxA0Wa qPIuWKcdT709YOqoBiI4 RLXdluZpP3FkZFFrhEwe EfR0h2Q9Ng68VfIOHERt czwvdGQ+PHRkIHN0 zUmuFBvvRVLmaE3hRTRk M4l1OqXaMaX8AExqG9Dw SFTtfjoyKg79cX6hFwWz IwE8HDhlQ1TydnU3 HZAueKNfDSfiYHK3J30b v2R1NHMaDIEgOUR1ePD4 gI1vwSnyrasudCFsuYgt dmVydGljYWwtYWxp R293SVJjfVjkKo1qfGY6 R3OkVck2HYKdhQkrBI5c tUCqXHkzFn2ksJnngNoa HZ6yBYQwcgiqFRGh lF3lNYJpwKPzuBxmSS6v VKZtwvvil870RwTaGLQ3 ECIapALjG1BgaU8lTcHl GVFzQRBwX1VgoBFw KNgbS648DEkeWpG5QBVv swGyE4QxMSTkpXygLcC9 v9I2Ro3SiSFqZ2EtI5q6 L2GjBoxdzRP+PC90 NYBgNI33rGDalRTxs1xy vZi3LcGhCIKnPFZ3mKfw MEual8DeEIOmQ26hvBDq r8M1TWTxhBlwkCSs VgVphZL0iP5mXWxqonqr y9kgdcjpSihpu0spmi82 pH36G90lZUdfDTCfOAPj IMKfIGZgiSriue4e iU6tEw4+ZRDrxMN0pKG3 sX5mPsRuPnH3UCatW453 FkVpsJYcHohkv3gix1du gUd4VfRtDUOlusXx uIujZYA8g4RtUg03A80q IHdpZHRoPSIyMCUiIHZh fDwwhe7etI0sFo5+PC9j e7aljx87jR39pAR+ PNEcWGB0eOqtYGhmQNKv qG6eRNtgQcQ5HDXkWrYm dW99pVLgLJnoHy3soYwk xKmkRY3kQWEvhixm j104QzJen9yhVYXxhTFs TDenOMD6C98hg2X7ZPIa QWBeUCM6rLE5gY4nlKpj bjogbGVmdDsgdmVy rFwcVSboXRfxF316HBKg uYmfIlPaxQCpQ1scyxCH TR4jFsvhwGD+PHRkIHN0 vEeyTIouGSKctD8p FUAoF1z5ZlYvSuY8MNba L9GbezO4IVGmnCCwSRQt cDSIjV3prkfur5wtgsyl KsKgBTKlMFl5OOg4 UDFehDajPiXqQDO5IrN5 USZ5iVYdjZ7tuHigyzfw gO8kCnb+RklOOjwvdGQ+ QNHgHLL5tUiyEMsy LVQhwH7fIAOaA6p2HmDk SvG8AGbjZ1CaekN6WLRj mARoIZGojVAUyH4grgfc x8rilknpUoJnJYEc AWa6SZs6SEHnkKmjKfHv NLW9WmV7BOG2lEZseY2i wLmbzcpmbT5fOkn+TVJO OjwvdGQ+PHRkIHN0 aNxvGTwmUDPajO7iPAOd I4w3UgMhZqE7BGvpG6Vw riO6TEIllZHwDRPruRJC vM8ehneuo6ljpnrk ShNnDOQwBIb4FHy5GMDi wTcvMaOzEMG3ZaY9QZR8 sJAquY9tqXtuvdcdpW8y Oyc+DET8VVJ4AR70 US86S5ZzXkxwxWQdlKS+ PHRhYmxlIHdpZHRoPScx MIXmZhEetTcdFW8qIn5i ZGVyLWNvbGxhcHNl OiBj (more content not included)... Normal [facility] Auto Diffon 08-24-2020 Basophils/100 WBC (Bld) 1.0 % Normal 0.0-2.0 [facility] Comment on above: Order Comment: Order Added by Discern Expert. Performed By: #### 1 1127966, 0847019, 7552730, 15912595, 2258689, 9128781, 38709977, 68172569 ####[facility] [address] [place] [address] Basophils/Leukocytes Auto (Bld) [Pure # fraction] 0.1 E9/L Normal 0.0-0.2 [facility] Comment on above: Order Comment: Order Added by Discern Expert. Performed By: #### 1 2004591, 4810788, 6515968, 93772170, 8682019, 7519046, 45113969, 18806012 ####[facility] [address] [place] [address] Eosinophils/100 WBC (Bld) 2.5 % Normal 0.0-8.0 [facility] Comment on above: Order Comment: Order Added by Discern Expert. Performed By: #### 1 0193260, 4021044, 0051801, 82470692, 9057907, 8440873, 54234488, 90515245 ####[facility] [address] [place] [address] Eosinophils/Leukocytes Auto (Bld) [Pure # fraction] 0.3 E9/L Normal 0.0-0.5 [facility] Comment on above: Order Comment: Order Added by Discern Expert. Performed By: #### 1 2559201, 0361098, 9153001, 11012421, 9516096, 1601745, 94695114, 52242566 ####[address] [place] [address] Lymphocytes/100 WBC (Bld) 21.0 % Normal 14.0-50.0 [facility] Comment on above: Order Comment: Order Added by Discern Expert. Performed By: #### 1 0763540, 9892299, 7334801, 68718308, 3990763, 0514602, 42428718, 33520765 ####[address] [address] Lymphocytes/Leukocytes Auto (Bld) [Pure # fraction] 2.1 E9/L Normal 1.0-4.0 [facility] Comment on above: Order Comment: Order Added by Crystal Expert. Performed By: #### 1 3000078, 9398860, 2237123, 19941973, 3253763, 5801449, 60807341, 20802449 ####[address] [address] Monocytes/100 WBC (Bld) 6.2 % Normal 4.0-14.0 [facility] Comment on above: Order Comment: Order Added by Discern Expert. Performed By: #### 1 7073163, 7032977, 9352728, 36731411, 9173252, 6749245, 32006333, 42657533 ####[address] [place] [address] Monocytes/Leukocytes Auto (Bld) [Pure # fraction] 0.6 E9/L Normal 0.2-1.0 [facility] Comment on above: Order Comment: Order Added by Crystal Expert. Performed By: #### 1 2294920, 1331386, 3456571, 12593488, 5073807, 8247559, 67859895, 82429064 ####[address] [place] [address] Neutrophils/100 WBC (Bld) 69.3 % Normal 36.0-75.0 [facility] Comment on above: Order Comment: Order Added by Discern Expert. Performed By: #### 1 8432797, 8729278, 3743697, 23652830, 1393427, 2892897, 98632016, 97820793 ####[facility] [address] [place] [address] Neutrophils/Leukocytes Auto (Bld) [Pure # fraction] 6.9 E9/L Normal 2.0-7.5 [facility] Comment on above: Order Comment: Order Added by Discern Expert. Performed By: #### 1 2100201, 7482158, 6420248, 72460721, 5360373, 9366463, 58274432, 95627500 ####[address] [place] [address] BMP 08-24-2020 Creatinine [Mass/Vol] 1.1 mg/dL Normal 0.5-1.3 [facility] Comment on above: Performed By: #### 1 7126233, 7301508, 2143158, 59326293, 0821663, 3211906, 21945405, 59778406 ####[facility] [address] [place] [address] Urea nitrogen [Mass/Vol] 19 mg/dL Normal 5-21 [facility] Comment on above: Performed By: #### 1 7424963, 7431893, 6619600, 59347218, 1537106, 1728380, 97575997, 43116742 ####[facility] [address] [place] [address] Urea nitrogen/Creatinine [Mass ratio] 17 No Units Normal 10-20 [facility] Comment on above: Performed By: #### 1 7798178, 9963757, 7650435, 93479439, 4691948, 0524667, 75782649, 59852360 ####[facility] [address] [place] [address] Anion gap [Moles/Vol] 14 mmol/L Normal 6-16 [facility] Comment on above: Performed By: #### 1 7731761, 4048756, 7123871, 38985816, 1287427, 0295058, 25708041, 77202285 ####[facility] [address] [place] [address] Calcium [Mass/Vol] 9.4 mg/dL Normal 8.9-11.1 [facility] Comment on above: Performed By: #### 1 0628571, 4039524, 7620015, 84502702, 3030932, 7418166, 55634338, 46783806 ####[facility] [address] [place] [address] Chloride [Moles/Vol] 94 mmol/L Low 101-111 [facility] Comment on above: Performed By: #### 1 6105218, 8966095, 4511266, 06557348, 7939358, 7208629, 41194052, 80390550 ####[facility] [address] [place] [address] CO2 [Moles/Vol] 29 mmol/L Normal 21-31 [facility] Comment on above: Performed By: #### 1 5540684, 0593881, 1995128, 46932008, 1892446, 0421435, 93628107, 84670675 ####[facility] [address] [place] [address] Glucose [Mass/Vol] 103 mg/dL Normal 55-199 [facility] Comment on above: Result Comment: If t his glucose result represents a fasting glucose, interpretation should refer to the following reference range: 55-99 mg/dL Performed By: #### 1 6279930, 1750393, 5463118, 20360382, 8376079, 2429870, 62288005, 18900702 ####[facility] [address] [place] [address] Potassium [Moles/Vol] 4.0 mmol/L Normal 3.5-5.3 [facility] Comment on above: Performed By: #### 1 2354862, 7988594, 1738080, 83771410, 0462838, 9198359, 67534717, 64351678 ####[facility] [address] [place] [address] Sodium [Moles/Vol] 133 mmol/L Low 135-145 [facility] Comment on above: Performed By: #### 1 5547913, 1141532, 2568778, 72277614, 1221922, 4510094, 38476613, 99736699 ####[facility] [address] [place] [address] BNPon 08-24-2020 Natriuretic peptide B (Bld) [Mass/Vol] 17 pg/mL Normal 5-80 [facility] Comment on above: Performed By: #### 1 0736166, 4042156, 8931959, 46944890, 9996119, 5271126, 07157125, 17064452 ####[facility] [address] [place] [address] CBC w/ Auto Diffon Erythrocyte distribution width (RBC) [Ratio] 12.9 % Normal 10.9-14.2 [facility] Comment on above: Performed By: #### 1 1832244, 0904808, 0554167, 57515907, 3717464, 6086040, 07566651, 06583412 ####[facility] [address] [place] [address] Hematocrit (Bld) [Volume fraction] 44.4 % Normal 37.7-49.0 [facility] Comment on above: Performed By: #### 1 8009285, 6632723, 8099830, 40539073, 9863965, 6697212, 09338354, 77621688 ####[facility] [address] [place] [address] Hemoglobin (Bld) [Mass/Vol] 15.3 g/dL Normal 13.5-17.5 [facility] Comment on above: Performed By: #### 1 5664130, 4057273, 4599871, 69002585, 0196425, 6773783, 90664469, 98959484 ####[address] [place] [address] MCH (RBC) [Entitic mass] 31.5 pg Normal 27.0-34.0 [facility] Comment on above: Performed By: #### 1 1781622, 1447522, 0527060, 91009086, 7727852, 8440419, 74434196, 26013020 ####[address] [address] MCHC (RBC) [Mass/Vol] 34.4 g/dL Normal 31.4-36.0 [facility] Comment on above: Performed By: #### 1 8319762, 2129454, 5933509, 81715075, 3054396, 3785612, 79096455, 91338062 ####[address] [address] MCV (RBC) [Entitic vol] 91.6 fL Normal 80.0-100.0 [facility] Comment on above: Performed By: #### 1 4627677, 4775631, 5706381, 61587876, 2945674, 4490177, 84212854, 42543886 ####[address] [address] Platelet mean volume (Bld) [Entitic vol] 8.4 fL Normal 6.4-10.8 [facility] Comment on above: Performed By: #### 1 2373008, 2090102, 1446503, 58258331, 8369686, 1353815, 44195944, 28745859 ####[address] [address] Platelets (Bld) [#/Vol] 289.0 E9/L Normal 150.0-500.0 [facility] Comment on above: Performed By: #### 1 3027633, 9334642, 2206248, 57400295, 4407791, 1948333, 45711244, 69121873 ####[facility] [address] [place] [address] RBC (Bld) [#/Vol] 4.8 E12/L Normal 4.3-5.9 [facility] Comment on above: Performed By: #### 1 2798288, 9567052, 8721550, 99211765, 9449482, 1697509, 07251806, 71660086 ####[facility] [address] [place] [address] WBC corrected for nucl RBC Auto (Bld) [#/Vol] 9.9 E9/L Normal 4.0-11.0 [facility] Comment on above: Performed By: #### 1 7781318, 1478882, 4372561, 20313811, 3956314, 1556708, 85565702, 24416534 ####[facility] [address] [place] [address] CTA Cheston 08-24-2020 CTA Chest Exam Date/Time: [...] 370 Contrast amount in ml's: 78 Normal [facility] Consent for Treatmenton 08-07 Consent for Treatment [id number] #1.00CD:127 Normal [facility] D-Dimeron 08-24-2020 Fibrin D-dimer FEU (PPP) [Mass/Vol] 845 ng/mL Abnormal 215-500 [facility] Comment on above: Result Comment: Resu [...] infections Liver cirrhosis Performed By: #### 1 5371453, 0223769, 4828225, 70821207, 8902972, 4299761, 07348465, 52373382 ####[facility] [address] [place] [address] Discharge Instructionson Discharge Instructions [id number] #1.00CD:127 Normal [facility] ED Clinical Summaryon 2020 ED Clinical Summary [id number] ED Clinical Summary Person Information Name: LILIANA MICHAELS/[facility] Age: 55 Years : 1965 Sex: Male Language: Croatian PCP: SIMONE JEAN BAPTISTE DC Marital Status: Single Phone: [phone] Visit Id: Visit Reason: Rib/trunk pain-swelling; SIDE [...] 08/24/2020 03:27:58 08/24/2020 03:27:58 08/24/2020 03:27:58 ADDRESS: [address] [place] [id number] [facility] DOC NOTES: MEDICAL INFORMATION: Prescriptions Given: New Medications [id number], [address], [place] [id number], [phone] azithromycin (Zithromax TRI-AMIRA 500 mg oral tablet) [...] With: Address: When: SIMONE JEAN BAPTISTE [address] [place] [address] Business (1) In 1 day 08/25/2020 Comments: Patient is advised to follow-up with his primary care physician in 1 to 2 days. He is also advised to come back to the emergency department if symptoms get worse. DIAGNOSIS: 1:Rib pain on left side Normal [facility] ED Note-Physicianon 08-25-19 ED Note-Physician Basic [...] date 08/24/20 2:30:00 EDT Rapid COVID Antigen ([facility]) Orders: albuterol-ipratropiu m, 3 mL, Soln-Inh, Inhalation, Once, Stop date 08/24/20 0:16:00 EDT, STAT, Start date 08/24/20 0:16:00 EDT azithromycin, 500 mg = 1 tab(s), Oral, Daily, # 3 tab(s), Refills(s) 0, Pharmacy: [id number], 163, cm, 08/24/20 0:04:00 EDT, Height/Length Dosing, 101, kg, 08/24/20 0:04:00 EDT, Weight Dosing famotidine, 20 mg = 1 tab(s), Tab, Oral, Once, Stop date 08/24/20 0:17:00 EDT, STAT, Start date 08/24/20 0:17:00 EDT lidocaine topical, 1 patch(es), Topical, Daily, 7 patch(es), Refill(s) 0, apply 12 hours on and 12 hours off daily, [facility]pharmacy #[id number], 163, cm, 08/24/20 0:04:00 EDT, Height/Length Dosing, 101, kg, 08/24/20 0:04:00 EDT, Julian (more content not included)... Normal [facility] Comment on above: Result Comment: Elec [...] Document Reviewed: 11/28/2008 ExitCare? Patient Information ?2014 [employer]. This information is not intended to replace advice given to you by your health care provider. Make sure you discuss any questions you have with your health care provider. Normal [facility] ED Patient Summaryon 021 ED Patient Summary [address] [address] Patient Discharge Instructions Person Information Name: LILIANA MICHAELS Age: 55 Years Arrival Date: 08/23/2020 23:48:11 Discharge Diagnosis: 1:Rib pain on left side Primary Care Physician: SIMONE JEAN BAPTISTE DC Provider Information Primary Provider: Pia LANE, David [employer] Underwriter:None The exam and treatment you received in the Emergency Department were for an urgent problem and are not intended as complete care. It is important that you follow up with a doctor, nurse practitioner, or physician?s equal opportunity assistant for ongoing care. If your symptoms [...] With: Address: When: SIMONE JEAN BAPTISTE [address] [place] [address] Business (1) In 1 day 08/25/2020 Comments: [...] opioids can be used to help relieve ufxcxowv-hw-meqzji pain and are often prescribed following a [...] be struggling (more content not included)... Normal [facility] PT & PTTon 08-24-2020 aPTT Coag (PPP) [Time] 30.2 second(s) Normal 25.1-36.5 [facility] Comment on above: Result Comment: Hepa rin therapeutic range (represented by Anti-Factor Xa activity of 0.2 - 0.4 U/mL) corresponds to PTT of 56.6 - 109.0 sec. Performed By: #### 1 9991326, 8435143, 2456977, 35419783, 4891370, 1827468, 54782362, 65748120 ####[facility] [address] [place] [address] INR Coag (PPP) [Relative time] 1.0 {INR} Invalid Interpretation Code [facility] Comment on above: Result Comment: INR results are specifically intended to assess patients stabilized on long-term Anticoagulation therapy suggested INR?s ?Less Intensive Anticoagulation? 2.0 ? 3.0 Conventional Range 3.0 ? 4.5 Performed By: #### 1 9644905, 7315449, 4848705, 98773295, 2569571, 6282029, 25230209, 90387057 ####[facility] [address] [place] [address] PT Coag (PPP) [Time] 11.6 second(s) Normal 10.2-12.9 [facility] Comment on above: Performed By: #### 1 2053364, 8745703, 9837449, 61491901, 5352513, 8985952, 18173527, 59596238 ####[facility] [address] [place] [address] RAD - Preliminary Cat Scan R eporton 08-24-2020 RAD - Preliminary Cat Scan Report [id number] #1.00CD:127 Normal [facility] Rapid COVID Antigen ([facility])on 08-24-2020 Rapid COV Int NEG Ctl Pass Normal [facility] Comment on above: Performed By: #### 2 [id number] ####[facility] [address] [place] [address] Rapid COV Int POS Ctl Pass Normal [facility] Comment on above: Performed By: #### 2 [id number] ####[facility] [address] [place] [address] SARS-CoV-2 (COVID-19) RNA KATT+probe Ql (Unsp spec) Not detected Normal Not Detected [facility] Comment on above: Result Comment: The [employer]? System for Rapid Detection of SARS-CoV-2 is [...] For in vitro diagnostic use. In the [facility], only for use under an Emergency [...] or revoked sooner. Performed By: #### 2 [id number] ####[address] [address] Employed in Healthcare NO Normal [facility] Comment on above: Performed By: #### 2 [id number] ####[address] [facility] [place] [address] First Test Unknown Normal [facility] Comment on above: Performed By: #### 2 [id number] ####[address] [place] [address] Hospitalized? NO Normal [facility] Comment on above: Performed By: #### 2 [id number] ####[address] [place] [address] ICU NO Normal [facility] Comment on above: Performed By: #### 2 [id number] ####[address] [facility] [place] [address] ? NO Normal [facility] Comment on above: Performed By: #### 2 [id number] ####[address] [place] [address] Resides in a Congregate Care Setting NO Normal [facility] Comment on above: Performed By: #### 2 [id number] ####[address] [facility] [place] [address] Symptomatic as defined by CDC YES Normal [facility] Comment on above: Performed By: #### 2 [id number] ####[address] [address] Troponin 0 Hr.on 08-24-2020 Troponin I.cardiac [Mass/Vol] 4.10 pg/mL Low 15.90-38.40 [facility] Comment on above: Result Comment: The 95% CI (Confidence Interval) PPV (Positive Predictive Value) for myocardial infarction in females is 38 pg/mL, in males 51 pg/mL. The results should be used in conjunction with clinical conditions of myocardial infarction. ([employer] High Sensitivity Troponin I Instructions For Use, [employer], December 2017) Performed By: #### 1 4421285, 6974225, 4125128, 88971567, 5650139, 6407441, 96908227, 54879029 ####[facility] [address] [place] [address] Troponin 3 Hr.on 08-24-2020 Troponin I.cardiac [Mass/Vol] 4.40 pg/mL Low 15.90-38.40 [facility] Comment on above: Result Comment: The 95% CI (Confidence Interval) PPV (Positive Predictive Value) for myocardial infarction in females is 38 pg/mL, in males 51 pg/mL. The results should be used in conjunction with clinical conditions of myocardial infarction. ([employer] High Sensitivity Troponin I Instructions For Use, [employer], December 2017) Performed By: #### 1 [id number] ####[facility] [address] [place] [address] XR Chest Single Viewon 08-24 XR Chest [...] V. Transcribed by: VIVIAN Technologist: DAT Normal [facility] eGFRon 08-24-2020 GFR/1.73 sq M.predicted among blacks MDRD (S/P/Bld) [Vol rate/Area] mL/min/{1.73_m2} Normal >=59 [facility] Comment on above: Order Comment: Order added by Discern Expert. Result Comment: eGFR is race adjusted. AA=. Performed By: #### 1 [id number], [id number], [id number], [id number], [id number], [id number], [id number], [id number] ####[facility] [address] [place] [address] GFR/1.73 sq M.predicted among non-blacks MDRD (S/P/Bld) [Vol rate/Area] mL/min/{1.73_m2} Normal >=59 [facility] Comment on above: Order Comment: Order added by Discern Expert. Result Comment: Bedspread Seamer jeniffer kidney disease could be indicated at eGFR's of less than 60 mL/min/1.73m2. Kidney failure is indicated at less than 15 mL/min/1.73m2. Performed By: #### 1 [id number], [id number], [id number], [id number], [id number], [id number], [id number], [id number] ####[facility] [address] [place] [address] HIP RIGHT 1 OR 2 VWS WITH PE LVISon 07-24-2020 HIP RIGHT 1 OR 2 VWS WITH PELVIS [facility] Department of Radiology [address] [place] [id number] Patient Name: LILIANA MICHAELS : 1965 [...] Electronically signed: Ana M Mariee. Transcribed by: [email or web address], User Resident: Electronically Signed by: ANA M MARIEE @ 07/24/2020 10:01 AM Normal [facility] Comment on above: Order Comment: Views (X-RAY, HIP): Radiologic Protocol HIP RIGHT 1 OR 2 VWS WITH PE LVISon 04-24-2020 HIP RIGHT 1 OR 2 VWS WITH PELVIS [facility] Department of Radiology [address] [place] [phone] Patient Name: LILIANA MICHAELS : 1965 [...] abnormality. Electronically signed: Ed España. Transcribed by: [email or web address], User Resident: Electronically Signed by: ED ESPAÑA @ 04/25/2020 08:22 AM Normal [facility] Comment on above: Order Comment: Views (X-RAY, HIP): Radiologic Protocol Operative Reporton 0 Operative Report MR#: [id number] 2 [facility] Pt. Name: Liliana Michaels Room #: 6AB [id number] Discharge 03/15/2020 Date: Birthdate: 1965 OPERATIVE REPORT [...] a (more content not included)... Normal [facility] BASIC METABOLIC PANELon 11-0 -2019 Calcium [Mass/Vol] 8.8 mg/dL Normal 8.6-10.3 [facility] Comment on above: Order Comment: Views (X-RAY, HIP): Radiologic Protocol Performed By: #### 0 [id number] ####[facility] [place] [address], [facility] Chloride [Moles/Vol] 98 mmol/L Normal 98-107 [facility] Comment on above: Order Comment: Views (X-RAY, HIP): Radiologic Protocol Performed By: #### 0 [id number] ####[facility] [place] [address], [facility] CO2 [Moles/Vol] 30 mmol/L Normal 21-31 [facility] [facility] Comment on above: Order Comment: Views (X-RAY, HIP): Radiologic Protocol Performed By: #### 0 [id number] ####[facility] [facility] [place] [place] [address], [facility] Creatinine [Mass/Vol] 0.96 mg/dL Normal 0.70-1.30 [facility] Comment on above: Order Comment: Views (X-RAY, HIP): Radiologic Protocol Performed By: #### 0 [id number] ####[facility] [facility] [place] [place] [address], [facility] GFR/1.73 sq M.predicted among blacks MDRD (S/P/Bld) [Vol rate/Area] mL/min/{1.73_m2} Normal >60 [facility] Comment on above: Order Comment: Views (X-RAY, HIP): Radiologic Protocol Performed By: #### 0 [id number] ####[facility] [facility] [place] [address], [facility] GFR/1.73 sq M.predicted among non-blacks MDRD (S/P/Bld) [Vol rate/Area] mL/min/{1.73_m2} Normal >60 [facility] Comment on above: Order Comment: Views (X-RAY, HIP): Radiologic Protocol Performed By: #### 0 [id number] ####[facility] [facility] [place] [address], [facility] Glucose [Mass/Vol] 151 mg/dL High 70-100 [facility] Comment on above: Order Comment: Views (X-RAY, HIP): Radiologic Protocol Performed By: #### 0 [id number] ####[facility] [facility] [place] [address], [place] Potassium [Moles/Vol] 4.4 mmol/L Normal 3.5-5.1 [facility] Comment on above: Order Comment: Views (X-RAY, HIP): Radiologic Protocol Performed By: #### 0 [id number] ####[facility] [place] [address], [place] Sodium [Moles/Vol] 133 mmol/L Low 136-145 [facility] Comment on above: Order Comment: Views (X-RAY, HIP): Radiologic Protocol Performed By: #### 0 [id number] ####[facility] [place] [address], [facility] Urea nitrogen [Mass/Vol] 20 mg/dL Normal 7-25 [facility] Comment on above: Order Comment: Views (X-RAY, HIP): Radiologic Protocol Performed By: #### 0 [id number] ####[facility] [place] [address], [facility] CBC COMPLETE BLOOD COUNTon 05-15-2019 Erythrocyte distribution width (RBC) [Ratio] 12.2 % Normal 11.5-15.0 [facility] Comment on above: Order Comment: No: D o not add to previous draw Performed By: #### 5 [id number] #### [facility] [address] [place] [id number], [facility] Hematocrit (Bld) [Volume fraction] 42.2 % Normal 39.0-50.0 [facility] Comment on above: Order Comment: No: D o not add to previous draw Performed By: #### 5 [id number] #### [facility] [address] [place] [address], [facility] Hemoglobin (Bld) [Mass/Vol] 13.9 g/dL Normal 13.0-17.0 [facility] Comment on above: Order Comment: No: D o not add to previous draw Performed By: #### 5 [id number] #### [facility] [address] [place] [address], [place] MCH (RBC) [Entitic mass] 31.4 pg Normal 27.0-33.0 [facility] Comment on above: Order Comment: No: D o not add to previous draw Performed By: #### 5 [id number] #### [facility] [address] [place], [place] [address] [place] [address] MCHC (RBC) [Mass/Vol] 32.9 g/dL Normal 32.0-35.0 [facility] Comment on above: Order Comment: No: D o not add to previous draw Performed By: #### 5 [id number] #### [facility] [address] [place] [address], [facility] MCV (RBC) [Entitic vol] 95.5 fL Normal 82.0-98.0 [facility] Comment on above: Order Comment: No: D o not add to previous draw Performed By: #### 5 [id number] #### [facility] [address] [facility] [place] [address], [facility] Nucleated RBC/100 WBC (Bld) [Ratio] 0 % Normal 0-0 [facility] Comment on above: Order Comment: No: D o not add to previous draw Performed By: #### 5 [id number] #### [facility] [address] [place] [address], [facility] PLAT CNT 254 10*3/uL Normal 150-400 [facility] Comment on above: Order Comment: No: D o not add to previous draw Performed By: #### 5 [id number] #### [facility] [address] [facility] [place] [address], [facility] RBC (Bld) [#/Vol] 4.42 10*6/uL Normal 4.20-5.70 [facility] Comment on above: Order Comment: No: D o not add to previous draw Performed By: #### 5 [id number] #### [facility] [address] [facility] [facility] [place] [id number], [facility] WBC (Bld) [#/Vol] 14.44 10*3/uL High 4.00-10.60 [facility] Comment on above: Order Comment: No: D o not add to previous draw Performed By: #### 5 [id number] #### [facility] [address] [place] [address], [facility] POC GLUCOSE LABon 03-15-2020 Glucose [Mass/Vol] 193 mg/dL High 70-100 [facility] Comment on above: Performed By: #### 8 [id number] #### [facility] [address] CBC W/DIFFon 03-14-2020 ABS IMM GRANS 0.2 10*3/uL Normal 0.0-0.2 [facility] Comment on above: Performed By: #### 5 0103 ####[facility] ABS NEUTROPHILS 8.0 10*3/uL High 1.6-7.6 [facility] Comment on above: Performed By: #### 5 0103 ####[facility] Basophils (Bld) [#/Vol] 0.1 10*3/uL Normal 0.0-0.2 [facility] Comment on above: Performed By: #### 5 0103 ####[facility] [place] [address], [facility] Basophils/100 WBC (Bld) 1.1 % High 0.0-1.0 [facility] Comment on above: Performed By: #### 5 0103 ####[facility] [place] [address], [facility] Eosinophils (Bld) [#/Vol] 0.3 10*3/uL Normal 0.0-0.5 [facility] Comment on above: Performed By: #### 5 0103 ####[facility] [place] [address], [facility] Eosinophils/100 WBC (Bld) 2.7 % Normal 0.0-6.0 [facility] Comment on above: Performed By: #### 5 0103 ####[facility] [place] [address], [place] Erythrocyte distribution width (RBC) [Ratio] 12.3 % Normal 11.5-15.0 [facility] Comment on above: Performed By: #### 5 0103 ####[facility] Hematocrit (Bld) [Volume fraction] 50.5 % High 39.0-50.0 [facility] Comment on above: Performed By: #### 5 0103 ####[facility] Hemoglobin (Bld) [Mass/Vol] 17.3 g/dL High 13.0-17.0 [facility] Comment on above: Performed By: #### 5 3 ####[address] IMMATURE GRANS 1.4 % High 0.0-1.0 [facility] Comment on above: Performed By: #### 5 3 ####[place] [address] [address] Lymphocytes (Bld) [#/Vol] 1.8 10*3/uL Normal 1.2-4.0 [facility] Comment on above: Performed By: #### 5 3 ####[place] [address] [address] Lymphocytes/100 WBC (Bld) 15.6 % Low 20.0-45.0 [facility] Comment on above: Performed By: #### 5 3 ####[place] [address] [address] MCH (RBC) [Entitic mass] 31.7 pg Normal 27.0-33.0 [facility] Comment on above: Performed By: #### 5 3 ####[facility] [place] [address], [facility] MCHC (RBC) [Mass/Vol] 34.3 g/dL Normal 32.0-35.0 [facility] Comment on above: Performed By: #### 5 0103 ####[facility] [facility] [place] [address], [facility] MCV (RBC) [Entitic vol] 92.7 fL Normal 82.0-98.0 [facility] Comment on above: Performed By: #### 5 0103 ####[facility] [facility] [place] [address], [facility] Monocytes (Bld) [#/Vol] 0.9 10*3/uL Normal 0.1-1.0 [facility] Comment on above: Performed By: #### 5 0103 ####[facility] [facility] MONOS 8.2 % Normal 5.0-12.0 [facility] Comment on above: Performed By: #### 5 0103 ####[facility] [facility].[address] Neutrophils/100 WBC (Bld) 71.0 % Normal 40.0-72.0 [facility] Comment on above: Performed By: #### 5 3 ####[facility] [facility].[address] Nucleated RBC/100 WBC (Bld) [Ratio] 0 % Normal 0-0 [facility] Comment on above: Performed By: #### 5 0103 ####[facility] [facility] [place] [address], [facility] PLAT CNT 301 10*3/uL Normal 150-400 [facility] Comment on above: Performed By: #### 5 0103 ####[facility] [place] [address], [facility] RBC (Bld) [#/Vol] 5.45 10*6/uL Normal 4.20-5.70 [facility] Comment on above: Performed By: #### 5 0103 ####[facility] WBC (Bld) [#/Vol] 11.22 10*3/uL High 4.00-10.60 [facility] Comment on above: Performed By: #### 5 0103 ####[facility] HIP RIGHT 1 OR 2 VWS WITH PE LVISon 03-14-2020 HIP RIGHT 1 OR 2 VWS WITH PELVIS [facility] Department of Radiology [address] [place] [id number] Patient Name: LILIANA MICHAELS : 1965 [...] purposes Electronically signed: Aria Steinberg. Transcribed by: [email or web address], User Resident: Electronically Signed by: ARIA STEINBERG @ 03/14/2020 03:44 PM Normal [facility] Comment on above: Order Comment: RT TH A POC GLUCOSE LABon 03-14-2020 Glucose [Mass/Vol] 222 mg/dL High 70-100 [facility] Comment on above: Performed By: #### 8 [id number] #### [facility] [address] [place] [address], [facility] Glucose [Mass/Vol] 217 mg/dL High 70-100 [facility] Comment on above: Performed By: #### 8 [id number] ####[facility] [facility] [place] [address], [facility] Glucose [Mass/Vol] 141 mg/dL High 70-100 [facility] Comment on above: Performed By: #### 8 [id number] #### [facility] [address] [place] [address], [facility] PORTABLE HIP RIGHT 1 OR 2 VW S WITH PELVISon 03-14-2020 PORTABLE HIP RIGHT 1 OR 2 VWS WITH PELVIS [facility] Department of Radiology [address] [place] [phone] Patient Name: LILIANA MICHAELS : [...] air Electronically signed: Aria Steinberg. Transcribed by: [email or web address], User Resident: Electronically Signed by: ARIA STEINBERG @ 03/14/2020 03:46 PM Normal [facility] Comment on above: Order Comment: Hardw are Evaluation, AP/Lateral TYPE AND SCREENon 03-14-2020 ABO INTERPRETATION O Normal [facility] Comment on above: Performed By: #### 6 2586 ####[facility] [place] [address], [place] RH INTERPRETATION Positive Normal [facility] Comment on above: Performed By: #### 6 2586 ####[facility] [place] [address], [place] Vital Signs Date Time Vital Sign Value Performing Clinician Facility 05-23-2024 08:30-0500 Body height 162.6 cm Amador Son MD Work Phone: [facility] 05-23-2024 08:30-0500 Body mass index (BMI) [Ratio] 37.76 kg/m2 Amador Son MD Work Phone: [facility] 05-23-2024 08:30-0500 Body weight 99.79 kg Amador Son MD Work Phone: [facility] 05-23-2024 08:30-0500 Diastolic blood pressure 78 mm[Hg] Amador Son MD Work Phone: [facility] 05-23-2024 08:30-0500 Heart rate 74 /min Amador Son MD Work Phone: [facility] 05-23-2024 08:30-0500 Systolic blood pressure 118 mm[Hg] Amador Son MD Work Phone: [facility] 04-24-2024 11:05-0500 Body height 162.6 cm Ishmael Simon MD Work Phone: [facility] 04-24-2024 11:05-0500 Body mass index (BMI) [Ratio] 37.76 kg/m2 Ishmael Simon MD Work Phone: [facility] 04-24-2024 11:05-0500 Body temperature 97.81 [degF] Ishmael Simon MD Work Phone: [facility] 04-24-2024 11:05-0500 Body weight 99.79 kg Ishmael Simon MD Work Phone: [facility] 04-24-2024 11:05-0500 Diastolic blood pressure 68 mm[Hg] Ishmael Simon MD Work Phone: [facility] 04-24-2024 11:05-0500 Heart rate 88 /min Ishmael Simon MD Work Phone: [facility] 04-24-2024 11:05-0500 Respiratory rate 18 /min Ishmael Simon MD Work Phone: [facility] 04-24-2024 11:05-0500 SaO2% (BldA) [Mass fraction] 95 % Ishmael Simon MD Work Phone: [facility] 04-24-2024 11:05-0500 Systolic blood pressure 116 mm[Hg] Ishmael Simon MD Work Phone: [facility] 02-06-2024 13:14-0400 Body height 162.6 cm Ishmael Simon MD Work Phone: [facility] 02-06-2024 13:14-0400 Body mass index (BMI) [Ratio] 37.25 kg/m2 Ishmael Simon MD Work Phone: [facility] 02-06-2024 13:14-0400 Body temperature 97.5 [degF] Ishmael Simon MD Work Phone: [facility] 02-06-2024 13:14-0400 Body weight 98.43 kg Ishmael Simon MD Work Phone: [facility] 02-06-2024 13:14-0400 Diastolic blood pressure 72 mm[Hg] Ishmael Simon MD Work Phone: [facility] 02-06-2024 13:14-0400 Heart rate 84 /min Ishmael Simon MD Work Phone: [facility] 02-06-2024 13:14-0400 Respiratory rate 20 /min Ishmael Simon MD Work Phone: [facility] 02-06-2024 13:14-0400 SaO2% (BldA) [Mass fraction] 97 % Ishmael Simon MD Work Phone: [facility] 02-06-2024 13:14-0400 Systolic blood pressure 134 mm[Hg] Ishmael Simon MD Work Phone: [facility] 01-13-2024 09:29-0400 Body height 162.6 cm Ishmael Simon MD Work Phone: [facility] 01-13-2024 09:29-0400 Body mass index (BMI) [Ratio] 36.39 kg/m2 Ishmael Simon MD Work Phone: [facility] 01-13-2024 09:29-0400 Body temperature 97.5 [degF] Ishmael Simon MD Work Phone: [facility] 01-13-2024 09:29-0400 Body weight 96.16 kg Ishmael Simon MD Work Phone: [facility] 01-13-2024 09:29-0400 Diastolic blood pressure 70 mm[Hg] Ishmael Simon MD Work Phone: [facility] 01-13-2024 09:29-0400 Heart rate 91 /min Ishmael Simon MD Work Phone: [facility] 01-13-2024 09:29-0400 Respiratory rate 18 /min Ishmael Simon MD Work Phone: [facility] 01-13-2024 09:29-0400 SaO2% (BldA) [Mass fraction] 97 % Ishmael Simon MD Work Phone: [facility] 01-13-2024 09:29-0400 Systolic blood pressure 120 mm[Hg] Ishmael Simon MD Work Phone: [facility] 11-09-2023 10:10-0400 Body height 162.6 cm Naima Wright FOLDING MACHINE OPERATOR-[employer] CLERK Work Phone: [facility] 11-09-2023 10:10-0400 Body mass index (BMI) [Ratio] 35.27 kg/m2 Naima Wright FOLDING MACHINE OPERATOR-[employer] CLERK Work Phone: [facility] 11-09-2023 10:10-0400 Body weight 93.21 kg Naima Wright FOLDING MACHINE OPERATOR-[employer] CLERK Work Phone: [facility] 11-09-2023 10:10-0400 Diastolic blood pressure 66 mm[Hg] Naima Wright FOLDING MACHINE OPERATOR-[employer]URAL [employer] CLERK Work Phone: [facility] 11-09-2023 10:10-0400 Heart rate 68 /min Naima Wright FOLDING MACHINE OPERATOR-[employer]URAL [employer] CLERK Work Phone: [facility] 11-09-2023 10:10-0400 Systolic blood pressure 98 mm[Hg] Naima Wright FOLDING MACHINE OPERATOR-[employer]URAL FOOD[employer] CLERK Work Phone: [facility] 08-10-2023 13:31-0400 Body height 162.6 cm Amador Son MD Work Phone: [facility] 08-10-2023 13:31-0400 Body mass index (BMI) [Ratio] 34.67 kg/m2 Amador Son MD Work Phone: [facility] 08-10-2023 13:31-0400 Body weight 91.63 kg Amador Son MD Work Phone: [facility] 08-10-2023 13:31-0400 Diastolic blood pressure 70 mm[Hg] Amador Son MD Work Phone: [facility] 08-10-2023 13:31-0400 Heart rate 69 /min Amador Son MD Work Phone: [facility] 08-10-2023 13:31-0400 Systolic blood pressure 116 mm[Hg] Amador Son MD Work Phone: [facility] 08-05-2023 17:30-0400 Diastolic blood pressure 67 mm[Hg] Amador Son MD Work Phone: [facility] 08-05-2023 17:30-0400 Heart rate 60 /min Amador Son MD Work Phone: [facility] 08-05-2023 17:30-0400 Respiratory rate 16 /min Amador Son MD Work Phone: [facility] 08-05-2023 17:30-0400 SaO2% (BldA) [Mass fraction] 96 % Amador Son MD Work Phone: [facility] 08-05-2023 17:30-0400 Systolic blood pressure 112 mm[Hg] Amador Son MD Work Phone: [facility] 08-05-2023 12:13-0400 Body height 162.6 cm Amador Son MD Work Phone: [facility] 08-05-2023 12:13-0400 Body mass index (BMI) [Ratio] 34.17 kg/m2 Amador Son MD Work Phone: [facility] 08-05-2023 12:13-0400 Body temperature 97.5 [degF] Amador Son MD Work Phone: [facility] 08-05-2023 12:13-0400 Body weight 90.3 kg Amador Son MD Work Phone: [facility] 07-22-2023 14:38-0400 Body height 162.6 cm Amador Son MD Work Phone: [facility] 07-22-2023 14:38-0400 Body mass index (BMI) [Ratio] 34.33 kg/m2 Amador Son MD Work Phone: [facility] 07-22-2023 14:38-0400 Body weight 90.72 kg Amador Son MD Work Phone: [facility] 07-22-2023 14:38-0400 Diastolic blood pressure 90 mm[Hg] Amador Son MD Work Phone: [facility] 07-22-2023 14:38-0400 Heart rate 41 /min Amador Son MD Work Phone: [facility] 07-22-2023 14:38-0400 Systolic blood pressure 138 mm[Hg] Amadro Son MD Work Phone: [facility] 07-14-2022 10:57-0500 Body height 162.56 cm Ishmael Simon Work Phone: [facility] 600 DO Work Phone: 07-14-2022 10:57-0500 Body mass index (BMI) [Ratio] 32.96 kg/m2 Ishmael A Naderer [facility]: [facility] [employer] 600 DO Work Phone: 07-14-2022 10:57-0500 Body surface area Derived from formula 1.92 m2 Ishmael A Naderer Work Phone: [facility] [employer] 600 DO Work Phone: 07-14-2022 10:57-0500 Body weight 87.09 kg Ishmael A Naderer Work [facility]: [facility] [employer] 600 DO Work Phone: 07-14-2022 10:57-0500 Diastolic blood pressure 64 mm[Hg] Ishmael A Naderer Work Phone: [facility] [employer] 600 DO Work Phone: 07-14-2022 10:57-0500 Heart rate 34 /min Ishmael A Naderer Work Phone: [facility] [employer] 600 DO Work Phone: 07-14-2022 10:57-0500 Systolic blood pressure 118 mm[Hg] Ishmael A Naderer Work Phone: [facility] [employer] 600 DO Work Phone: 01-28-2022 09:37-0400 Body height 162.56 cm Ishmael A Naderer Work Phone: [facility] [employer] [address] DO Work Phone: 01-28-2022 09:37-0400 Body mass index (BMI) [Ratio] 30.9 kg/m2 Ishmael A Naderer Work Phone: [facility] [employer] 600 DO Work Phone: 01-28-2022 09:37-0400 Body surface area Derived from formula 1.87 m2 Ishmael A Naderer Work Phone: [facility] [employer] 600 DO Work Phone: 01-28-2022 09:37-0400 Body weight 81.65 kg Ishmael Carterr Work Phone: [facility] 600 DO Work Phone: 01-28-2022 09:37-0400 Diastolic blood pressure 50 mm[Hg] Ishmael Rae Raulr Work Phone: [facility] [employer] 600 DO Work Phone: 01-28-2022 09:37-0400 Heart rate 41 /min Ishmael Simon Work Phone: [facility] [employer] 600 DO Work Phone: 01-28-2022 09:37-0400 Systolic blood pressure 112 mm[Hg] Ishmael Rae Alfred Work Phone: [facility] DO Work Phone: Encounters Encounter Date Encounter Type Care Provider Facility Start: 05-23-2024 End: 05-23-2024 Office outpatient visit 25 minutes Amador Son MD Work Phone: [facility] Comment on above: Cardiac pacemaker in situ (Primary Dx); Sick sinus syndrome (Multi); MRI safe cardiac pacemaker in situ; Abnormal EKG; Chronotropic incompetence; Sinoatrial node dysfunction (Multi); Sinus bradycardia; Current smoker; BMI 37.0-37.9, adult Start: 05-23-2024 End: 05-23-2024 Subsequent hospital visit by physician [facility] Comment on above: Sinus bradycardia; Sick sinus syndrome (Multi); Chronotropic incompetence; MRI safe cardiac pacemaker in situ Start: 05-23-2024 End: 05-23-2024 ambulatory AMADOR SON [facility] Start: 04-27-2024 End: 04-27-2024 Red Simon MD Work Phone: [facility] Comment on above: Degeneration of lumb ar intervertebral disc Start: 04-24-2024 End: 04-24-2024 Bamboo flowsheet Ishmael Simon MD Work Phone: [facility] Start: 04-24-2024 End: 04-24-2024 Bamboo flowsheet Ishmael Simon MD Work Phone: [facility] Start: 04-24-2024 End: 04-24-2024 Clinisync Result Encounter Ishmael Simon MD Work Phone: [facility] External Department Unsolicited Start: 04-24-2024 End: 04-24-2024 Patient encounter procedure Ishmael Simon MD Work Phone: [facility] Work Phone: Start: 04-24-2024 End: 04-24-2024 Postop follow up visit related to original px Ishmael Simon MD Work Phone: [facility] Comment on above: Medicare annual well ness visit, subsequent (Primary Dx); Type 2 diabetes mellitus with hyperglycemia, without long-term current use of insulin ([facility]/HCC); Essential hypertension, benign (CMS/HCC); Class 2 severe obesity due to excess calories with serious comorbidity and body mass index (BMI) of 37.0 to 37.9 in adult (CMS/HCC) Start: 04-24-2024 End: 04-24-2024 ambulatory ISHMAEL SIMON Not Available Start: 04-16-2024 End: 04-16-2024 ambulatory Jong Reyes MD Facility: [facility] Start: 03-30-2024 End: 03-30-2024 Refill Ishmael Simon MD Work Phone: [facility] Comment on above: Degeneration of lumb ar intervertebral disc Start: 03-27-2024 End: 03-27-2024 Patient encounter procedure Ishmael Simon MD Work Phone: [facility] [place] Work Phone: Start: 03-27-2024 End: 03-27-2024 ambulatory Ishmael Simon MD Work Phone: [facility] Work Phone: Start: 03-16-2024 End: 03-16-2024 ambulatory Danielle Bergeron Facility:[facility] [facility] [place] Start: 03-16-2024 Non-patient / Non-visit [facility] Start: 03-01-2024 End: 03-01-2024 Refill Ishmael Simon MD Work Phone: [facility] Comment on above: Degeneration of lumb ar intervertebral disc Start: 02-14-2024 End: 02-14-2024 ambulatory [facility] Start: 02-14-2024 End: 02-14-2024 Subsequent hospital visit by physician Varsha Vance [facility] Comment [...] Department Unsolicited Start: 02-06-2024 End: 02-06-2024 ambulatory SIHMAEL SIMON Not Available Start: 02-06-2024 End: 02-06-2024 [...] intervertebral disc Start: 01-25-2024 End: 01-25-2024 ambulatory [facility] Start: 01-25-2024 End: 01-25-2024 Subsequent hospital visit by physician Varsha Restrepo [facility] Comment on above: Cardiac pacemaker [...] intervertebral disc Start: 12-01-2023 End: 12-01-2023 ambulatory [facility] Start: 11-09-2023 End: 11-09-2023 Office outpatient visit 40 minutes Naima MURILLO Work Phone: [facility] Comment on above: MRI safe cardiac [...] by physician Varsha [facility] 2 [facility] Comment on above: Pacemaker Start: 11-09-2023 End: 11-09-2023 [facility]: 10-10-2023 End: 10-10-2023 [facility] Start: 09-26-2023 End: 09-26-2023 ambulatory AMADOR SON [facility] Start: 09-26-2023 End: 09-26-2023 Subsequent hospital visit by physician Maddox Device Remote [facility] Comment on above: Cardiac pacemaker in situ; Sinoatrial node dysfunction (Multi) Start: 08-12-2023 End: 08-12-2023 [facility] Start: 08-10-2023 End: 08-10-2023 Subsequent hospital visit by physician Maddox Ultrasound 3 [facility] Comment on above: Localized swelling o n left hand; S/P placement of cardiac pacemaker Start: 08-10-2023 End: 08-10-2023 ambulatory [facility] S[facility] Start: 08-10-2023 End: 08-10-2023 Office outpatient visit 25 minutes Amador Son MD Work Phone: [facility] Comment on above: Chronotropic incompe tence (Primary Dx); Abnormal stress test; Sinus bradycardia; Sick sinus syndrome (CMS/HCC); Essential hypertension, benign; BMI 34.0-34.9,adult; Current smoker Start: 08-05-2023 End: 08-05-2023 Subsequent hospital visit by physician Amador Son MD Work Phone: [facility] Comment on above: Sinus bradycardia (P rimary Dx); Chronotropic incompetence; Sick sinus syndrome (CMS/HCC); Other fatigue; Abnormal stress test; Dyspnea; Pacemaker Start: 07-22-2023 End: 07-22-2023 ambulatory [facility] Start: 07-22-2023 End: 07-22-2023 Encounter for preprocedural cardiovascular examination [facility] Start: 07-22-2023 End: 07-22-2023 Office outpatient new 60 minutes Amador Son MD Work Phone: [facility] Comment on above: Chronotropic incompe tence (Primary Dx); Sinus bradycardia; Establishing care with new doctor, encounter for; BMI 34.0-34.9,adult; Sick sinus syndrome (CMS/HCC); Simple chronic bronchitis (CMS/HCC); Current smoker; Other fatigue; Preoperative cardiovascular examination Start: 07-22-2023 End: 07-22-2023 Patient encounter status Amador Son MD Work Phone: [facility] Work Phone: Start: 07-13-2023 End: 07-13-2023 ambulatory [facility] Start: 07-13-2023 End: 07-13-2023 ambulatory [facility] Start: 10-14-2022 ambulatory NARENDRANATH LAKSHMIPATHY [...] sit 15 minutes Ishmael Simon Work Phone: [facility] 600 DO Work Phone: Start: 07-14-2022 [...] 02-16-2022 Chart Update Ishmael Simon Work Phone: [facility] 250 DO Work Phone: Start: 02-15-[address] Valentino Ty Facility:44 Start: 01-28-[address] Ishmael Simon Facility: Start: 01-28-2022 Office consultation new/estab patient 60 min Ishmael Simon Work Phone: [facility] 600 DO Work Phone: Start: 01-14-2022 End: 01-15-2022 ambulatory TERESO COLMENARES . Facility:[facility] Start: 01-01-2022 End: 01-02-[address] ISHMAEL SIMON Facility:[facility] Start: 12-15-2021 End: 12-15-[address] RICKY IBARRA . Facility:[facility] Start: 12-14-2021 Encounter for preprocedural laboratory examination DR RICKY IBARRA . [facility] Start: 12-12-2021 End: 12-13-[address] ISHMAEL [...] Start: 10-03-2020 End: 10-04-2020 ambulatory SIMONE RUIZ Facility:[facility] Start: 03-26-2020 End: 04-10-2020 ambulatory JEY ELISE Facility:[facility] Start: 03-14-2020 End: 03-15-2020 ambulatory JEY ELISE Facility:[facility] Procedures Date Procedure Procedure Detail Performing Clinician Start: 05-23-2024 Ecg routine ecg w/le ast 12 lds w/i&r Amador Son MD Work Phone: Start: 05-23-2024 Program eval implant able in persn dual ld pacer Naima Wright FOLDING MACHINE OPERATOR-NATURAL FOODS CLERK Work Phone: Start: 04-24-2024 MLR HEMOGLOBIN A1C [...] w/le ast 12 lds w/i&r Naima Wright FOLDING MACHINE OPERATOR-NATURAL FOODS CLERK Work Phone: Start: 11-09-2023 Program eval implant able in persn dual ld pacer Ana M Kumari FOLDING MACHINE OPERATOR-NATURAL FOODS CLERK Work Phone: Start: 09-26-2023 CARDIAC DEVICE CHECK - REMOTE NAIMA WRIGHT Start: 09-26-2023 CARDIAC DEVICE CHECK - REMOTE Amador Son MD Work Phone: Start: 08-10-2023 VASC US UPPER EXTREM ITY VENOUS DUPLEX LEFT NAIMA WRIGHT Start: 08-10-2023 Dup-scan xtr veins unilateral/limited study Naima Wright FOLDING MACHINE OPERATOR-NATURAL FOODS CLERK Work Phone: Start: 08-05-2023 Radiologic exam ches t single view Ana M Echo FOLDING MACHINE OPERATOR-NATURAL FOODS CLERK Work Phone: Start: 08-05-2023 Ecg routine ecg w/le ast 12 lds trcg only w/o i&r Ana M Echo FOLDING MACHINE OPERATOR-NATURAL FOODS CLERK Work Phone: Start: 08-05-2023 Electrophysiology study Amador Son MD Work Phone: Start: 08-05-2023 Echo tthrc r-t 2d w/ wom-mode compl spec&colr d Ana M Angel FOLDING MACHINE OPERATOR-NATURAL FOODS CLERK Work Phone: Start: 08-05-2023 Ecg routine ecg w/le ast 12 lds trcg only w/o i&r Ana M Angel APRN-NATURAL FOODS CLERK Work Phone: Start: 08-05-2023 Basic metabolic pane l calcium total Ana M Angel FOLDING MACHINE OPERATOR-NATURAL FOODS CLERK Work Phone: Start: 07-22-2023 CASE REQUEST [...] Performed By: #### V ITAD, PSASC #### [facility] [address] [place] [address] Dr. Britt Mendoza Start: 03-15-2020 ANESTH HIP ARTHROPLASTY SIMONE RUIZ Start: 03-15-2020 TOTAL HIP ARTHROPLASTY JEY ELISE Start: 03-14-2020 Antibody screen SIMONE BOLIVAR Comment on above: Performed By: #### [id number] ####[facility] Start: 08-24-2019 Colonoscopy Ishmael faith MD [...] Start: 11-28-2024 End: 11-28-2024 Patient encounter procedure [facility] Start: 11-21-2024 End: 11-21-2024 Patient encounter procedure 11/21/2024 8:00 AM EDT Appointment [facility] [address] [place] [address] [facility] Start: 08-04-2024 Creatinine measurement Creatinine Level [facility] Start: 08-04-2024 Echocardiography Echocardiogram [facility] Start: 08-04-2024 Potassium measurement Potassium Level [facility] Start: 07-23-2024 End: 07-23-2024 Patient encounter procedure 07/23/2024 10:15 AM EDT Office Visit [facility] [address] [place] [address] Ishmael Simon MD [address] [place] [address] [facility] Start: 06-13-2024 End: 06-13-2024 Patient encounter procedure 06/13/2024 9:10 AM EST Office Visit [place] [address] [place] [address] Valentino Ty MD [address] [facility], [address] [place] [address] [facility] Start: 05-25-2024 Urine screening for protein Diabetes: Urine Protein Screening [facility] Start: 05-23-2024 End: 05-23-2024 Patient encounter procedure [facility] Start: 05-17-2024 Glaucoma screening Diabetes: Retinopathy Screening [facility] Start: 05-11-2024 End: 11-08-2024 Cardiac Device Check - In Clinic Cardiac Device Check - In Clinic Implantable Cardiac Device Routine Sinus bradycardia Sick sinus syndrome (Multi) Chronotropic incompetence MRI safe cardiac pacemaker in situ Expected: 05/11/2024 (Approximate), Expires: 11/08/2024 [facility] Service Area Work Phone: Comment on above: Expected: 05/11/2024 (Approximate), Expi res: 11/08/2024 Start: 04-24-2024 End: 04-24-2025 Hemoglobin A1c/Hemoglobin.total in Blood Hemoglobin A1c Lab Routine Type 2 diabetes mellitus with hyperglycemia, without long-term current use of insulin ([facility]) Expected: 04/24/2024 (Approximate), Expires: 04/24/2025 [facility] Work Phone: Comment on above: Expected: 04/24/2024 (Approximate), Expi res: 04/24/2025 Start: 04-24-2024 End: 04-24-2024 Patient encounter procedure [facility] Comment on above: Arrived Start: 04-10-2024 Hemoglobin A1c measurement Diabetes: Hemoglobin A1C [facility] Start: 2024 RSV High Risk: (Elderly (60+) or Population) (1 - Risk 60-74 years 1-dose series) RSV High Risk: (Elderly (60+) or Population) (1 - Risk 60-74 years 1-dose series) [facility] Start: 02-06-2024 End: 02-05-2025 Bacteria identified in Urine by Culture Urine culture (clean catch) Microbiology Routine Dysuria Expected: 02/06/2024 (Approximate), Expires: 02/05/2025 [facility] Work Phone: Comment on above: Expected: 02/06/2024 (Approximate), Expi res: 02/05/2025 Start: 02-06-2024 End: 02-05-2025 Chlamydia trachomatis and Neisseria gonorrhoeae DNA [Identifier] in Unspecified specimen by KATT with probe detection Chlamydia DNA probe, direct Microbiology Routine Acute prostatitis Pyuria Expected: 02/06/2024 (Approximate), Expires: 02/05/2025 [facility] Comment on above: Expected: 02/06/2024 (Approximate), Expi res: 02/05/2025 Start: 02-06-2024 End: 02-05-2025 Neisseria gonorrhoeae DNA assay Gonococcus DNA, PCR Microbiology Routine Dysuria Acute prostatitis Pyuria Expected: 02/06/2024 (Approximate), Expires: 02/05/2025 [facility] Comment on above: Expected: 02/06/2024 (Approximate), Expi [...] COVID-19 Vaccine ( season) COVID-19 Vaccine () [facility] Start: 01-08-2024 COVID-19 Vaccine () COVID-19 Vaccine () [facility] Start: 01-08-2024 Influenza vaccination [facility] Start: 11-21-2023 End: 11-21-2023 Patient encounter procedure 11/21/2023 8:50 AM EDT Office Visit [place] [address] [place] [address] Valentino Ty MD [address] [facility] 2, [address] [place] [address] [facility] Start: 11-09-2023 End: 08-04-2024 Cardiac Device Check - In Clinic [facility] Service Area Work Phone: Comment on above: Expected: 11/09/2023 (Approximate), Expi res: 08/04/2024 Start: 11-09-2023 End: 08-04-2024 XR Chest [address] [facility] Work Phone: Comment on above: Expected: 11/09/2023, Expires: Once for 1 Occurrenc es starting 11/09/2023 until 11/09/2023 Start: 11-09-2023 End: 11-09-2023 Patient encounter procedure [facility] Start: 11-03-2023 End: 11-03-2023 Patient encounter procedure 11/03/2023 8:50 AM EDT Office Visit [place] [address] [place] [address] Valentino Ty MD [address], [address] [place], [place] [id number] [facility] Start: 08-12-2023 End: 08-12-2023 Clinical Support 08/12/2023 8:30 AM EDT Clinical Support [facility] [address] [place] [address] [facility] Start: 08-10-2023 Subsequent hospital visit by physician 08/10/2023 2:09 PM EDT Hospital Encounter [facility] [address] [place] [address] Localized swelling on left hand; S/P placement of cardiac pacemaker [facility] Comment on above: Localized swelling on left hand; S/P placement of cardiac pacemaker Start: 07-22-2023 End: 07-21-2025 US Heart Transthoracic Transthoracic Echo Complete Echocardiography Routine Sinus bradycardia Chronotropic incompetence Sick sinus syndrome (CMS/HCC) Other fatigue Preoperative cardiovascular examination Expected: 07/22/2023 (Approximate), Expires: 07/21/[address] [facility] Work Phone: Comment on above: Expected: 07/22/2023 (Approximate), Expi res: 07/21/2025 Start: 07-13-2023 FUV, Provider: Valentino Ty, Status: Pen, Time: 8:30 AM FUV, Provider: Valentino Ty, Status: Pen, Time: 8:30 AM [facility] 600 DO Work Phone: Start: 01-07-2023 COVID-19 Vaccine ( season) COVID-19 Vaccine ( season) [facility] Start: 01-07-2023 Influenza vaccination Influenza Vaccine (#1) [facility] Start: 07-14-2022 FUV, Provider: Valentino Ty, Status: Pen, Time: 10:40 AM FUV, Provider: Valentino Ty, Status: Pen, Time: 10:40 AM [facility] 600 DO Work Phone: Start: 02-15-2022 STRESS JUICE, Provider: CARLITO MCKEONI NUCLEAR 01,[id number], Status: Pen, Time: 2:00 PM STRESS JUICE, Provider: CARLITO MCKEONI NUCLEAR 01,[id number], Status: Pen, Time: 2:00 PM [facility] 600 DO Work Phone: Start: 02-21-2014 Zoster Vaccines (1 of 2) Zoster Vaccines (1 of 2) [facility] Start: 02-21-1986 DTaP/Tdap/Td Vaccines (1 - Tdap) DTaP/Tdap/Td Vaccines (1 - Tdap) [facility] Start: 02-21-1983 Hepatitis B Vaccines (1 of 3 - 19+ 3-dose series) Hepatitis B Vaccines (1 of 3 - 19+ 3-dose series) [facility] Start: 02-21-1983 Pneumococcal vaccination Pneumococcal Vaccine (1 of 2 - PCV) [facility] Start: 02-21-1983 Urine screening for protein Diabetes: Urine Protein Screening [facility] Start: 02-21-1982 Diabetes mellitus screening Diabetes Screening [facility] Start: 02-21-1982 Hepatitis C screening Hepatitis C Screening [facility] Start: 02-21-1974 Diabetic foot examination Diabetes: Foot Exam [facility] Start: 02-21-1974 Glaucoma screening Diabetes: Retinopathy Screening [facility] Start: 02-21-1970 Pneumococcal Vaccine: Pediatrics (0 to 5 Years) and At-Risk Patients (6 to 64 Years) (1 - PCV) Pneumococcal Vaccine: Pediatrics (0 to 5 Years) and At-Risk Patients (6 to 64 Years) (1 - PCV) [facility] Start: 02-21-1970 Pneumococcal Vaccine: Pediatrics (0 to 5 Years) and At-Risk Patients (6 to 64 Years) (1 of 2 - PCV) Pneumococcal Vaccine: Pediatrics (0 to 5 Years) and At-Risk Patients (6 to 64 Years) (1 of 2 - PCV) [facility] Start: 02-21-1965 MMR Vaccines (1 of 1 - Standard series) MMR Vaccines (1 of 1 - Standard series) [facility] Start: 1964 COVID-19 Vaccine (#1) COVID-19 Vaccine (#1) [facility] Start: 1964 Annual wellness visit Welcome to Medicare Visit [facility] Start: 1964 Creatinine measurement Creatinine Level [facility] Start: 1964 Echocardiography Echocardiogram [facility] Start: 1964 Hemoglobin A1c measurement Diabetes: Hemoglobin A1C [facility] Start: 1964 Hepatitis B Vaccines (1 of 3 - 3-dose series) Hepatitis B Vaccines (1 of 3 - 3-dose series) [facility] Start: 1964 HIV screening HIV Screening [facility] Start: 1964 Lipid panel Lipid Panel [facility] Start: 1964 Medicare Annual Wellness (AWV) Medicare Annual Wellness (AWV) [facility] Start: 1964 Medicare Annual Wellness Visit Medicare Annual Wellness Visit (AWV) [facility] Start: 1964 Potassium measurement Potassium Level [facility] Start: 1964 Screening for malignant neoplasm of colon [facility] Start: 1964 Urine screening for protein Diabetes: Urine Protein Screening [facility] End: 07-21-2024 Basic metabolic 2000 panel - Serum or Plasma Basic Metabolic Panel Lab Routine Sinus bradycardia Chronotropic incompetence Sick sinus syndrome (CMS/HCC) Other fatigue 1 Occurrences starting 07/22/2023 until 07/21/[address] [facility] Work Phone: Comment on above: 1 Occurrences starting 07/22/2023 until 07/21/2024 End: 11-20-2025 Cardiac Device Check - In Clinic Cardiac Device Check - In Clinic Implantable Cardiac Device Routine Cardiac pacemaker in situ 1 Occurrences starting 05/23/2024 until 11/20/2025 [facility] Service Area Work Phone: Comment on above: 1 Occurrences starting 05/23/2024 until 11/20/2025 End: 01-25-2024 Cardiac Device Check - Remote [facility] Work Phone: Comment on above: Once for 1 Occurrences starting 01/25/20 24 until 01/25/2024 End: 11-20-2024 Cardiac Device Check - Remote Cardiac Device Check - Remote Implantable Cardiac Device Routine Cardiac pacemaker in situ 52 Occurrences starting 05/23/2024 until 11/20/[address] [facility] Work Phone: Comment on above: 52 Occurrences starting 05/23/2024 until 11/20/2024 End: 07-21-2024 CBC panel - Blood by Automated count CBC Lab Routine Sinus bradycardia Chronotropic incompetence Sick sinus syndrome (CMS/HCC) Other fatigue 1 Occurrences starting 07/22/2023 until 07/21/[address] [facility] Work Phone: Comment on above: 1 Occurrences starting 07/22/2023 until 07/21/2024 ECG 12 lead (Clinic Performed) ECG 12 lead (Clinic Performed) ECG Routine Sinus bradycardia 11/09/2023 10:38 AM EDT [facility] Work Phone: ECG 12 lead STAT ECG 12 lead STA T ECG STAT 08/05/2023 12:30 PM EDT [facility] Work Phone: ECG 12 lead STAT ECG 12 lead STA T ECG STAT 08/05/2023 5:12 PM EDT [facility] Work Phone: PPM IMPLANT DC PPM IMPLANT DC S inus bradycardia Chronotropic incompetence Sick sinus syndrome (CMS/HCC) Other fatigue [facility] Work Phone: End: 07-21-2024 Prothrombin time (PT) Protime-INR Lab Routine Sinus bradycardia Chronotropic incompetence Sick sinus syndrome (CMS/HCC) Other fatigue 1 Occurrences starting 07/22/2023 until 07/21/2024 [facility] Work Phone: Comment on above: 1 Occurrences starting 07/22/2023 until 07/21/2024 Payers Date Payer Category Payer Self-pay 2023 Medicare [id number] 2023 Medicare (Managed Care) 1.2. [id number] 2023 Private Health Insurance [id number] 2023 Private Health Insurance 1965 Unknown [id number] 2.16.840.1.706634.3.579.2.647 1964 Unknown [id number] 2.16.840.1.118308.3.579.2.647 1964 Unknown [id number] 2.16.840.1.398301.3.579.2.647 1964 Unknown [id number] 2.16.840.1.478272.3.579.2.1068 1964 Unknown [id number] 2.16.840.1.042062.3.579.2.356 1964 Unknown [id number] 2.16.840.1.838390.3.579.2.356 1964 Unknown [id number] 2.16.840.1.703886.3.579.2.593 1964 Unknown [id number] 2.16.840.1.310961.3.579.2.593 1964 Unknown [id number] 2.16.840.1.346447.3.579.2.593 1964 Unknown [id number] 2.16.840.1.970257.3.579.2.593 1964 Unknown [id number] 2.16.840.1.588190.3.579.2.593 1964 Unknown [id number] 2.16.840.1.134097.3.579.2.593 1964 Unknown [id number] 2.16.840.1.503629.3.579.2.593 1964 Unknown [id number] 2.16.840.1.820891.3.579.2.593 1964 Unknown [id number] 2.16.840.1.844289.3.579.2.593 1964 Unknown [id number] 2.16.840.1.506896.3.579.2.593 1964 Unknown [id number] 2.16.840.1.994056.3.579.2.593 1964 Unknown [id number] 2.16.840.1.893211.3.579.2.593 1964 Unknown [id number] 2.16.840.1.145448.3.579.2.593 1964 Unknown [id number] 2.16.840.1.351434.3.579.2.593 1964 Unknown [id number] 2.16.840.1.569421.3.579.2.593 1964 Unknown [id number] 2.16.840.1.796843.3.579.2.593 1964 Unknown [id number] 2.16.840.1.263268.3.579.2.593 1964 Unknown [id number] 2.16.840.1.005273.3.579.2.593 1964 Unknown [id number] 2.16.840.1.489275.3.579.2.593 1964 Unknown [id number] 2.16.840.1.948761.3.579.2.593 1964 Unknown [id number] 2.16.840.1.805149.3.579.2.593 1964 Unknown [id number] 2.16.840.1.496414.3.579.2.593 1964 Unknown [id number] 2.16.840.1.699358.3.579.2.593 1964 Unknown [id number] 2.16.840.1.972630.3.579.2.593 1964 Unknown [id number] 2.16.840.1.590226.3.579.2.1259 1964 Unknown [id number] 2.16.840.1.216275.3.579.2.1259 1964 Unknown [id number] 2.16.840.1.885749.3.579.2.1259 1964 Unknown [id number] 2.16.840.1.773962.3.579.2.1259 1964 Unknown [id number] 2.16.840.1.745533.3.579.2.196 1964 Unknown [id number] 2.16.840.1.899857.3.579.2.1244 1964 Unknown [id number] 2..840.1.160428.3.579.2.1244 1964 Unknown [id number] 2.16.840.1.611353.3.579.2.1244 1964 Unknown [id number] 2.16.840.1.444589.3.579.2.1244 1964 Unknown [id number] 2.16.840.1.616066.3.579.2.1244 1964 Unknown [id number] 2.16.840.1.366502.3.579.2.1244 1964 Unknown [id number] 2.16.840.1.173809.3.579.2.1244 1964 Unknown [id number] 2.16.840.1.565364.3.579.2.1244 1964 Unknown [id number] 2.16.840.1.421252.3.579.2.1246 1964 Unknown [id number] 2.16.840.1.973861.3.579.2.1246 1964 Unknown [id number] 2.16.840.1.330078.3.579.2.1246 1964 Unknown [id number] 2.16.840.1.859710.3.579.2.1246 1964 Unknown [id number] 2.16.840.1.737625.3.579.2.1246 1964 Unknown [id number] 2.16840.1.804399.3.579.2.124 1964 Unknown [id number] 2.16.840.1.762557.3.579.2.1246 1960 Medicaid [id number] 1960 Medicare [id number] Unknown [id number] Unknown Unknown [employer] [id number] Unknown [id number] 2..840.1.848607.3.579.2.531 Unknown [id number] 2.16.840.1.427909.3.579.2.531 Social History Date Type Detail Facility Start: 07-13-2023 End: 05-23-2024 No alcohol use No alcohol use [facility] Comment on above: 1 pack daily; Start: 07-13-2023 End: 11-09-2023 Tobacco smoking status NHIS Smokes tobacco daily [facility] History of tobacco use Cigarette Smoker U [facility] Work Phone: Start: 07-13-2023 End: 11-09-2023 Tobacco use and exposure Smokeless tobacco non-user [facility] Work Phone: Start: 07-22-2023 End: 05-23-2024 Alcohol intake Lifetime non-drinker (finding) [facility] Work Phone: Start: 07-13-2023 End: 05-23-2024 Tobacco use panel [facility] Start: 1965 Sex Assigned At Not on file [facility] Work Phone: Start: 07-12-2023 End: 05-23-2024 Exposure to SARS-CoV-2 (event) Not sure [facility] Frequency of Social Gatherings with Friends and Family Not on file [facility] Do you belong to any clubs or organizations such as oriental orthodox groups, unions, fraternal or athletic groups, or [...] Healthcare Start: 07-06-2019 Tobacco smoking stat us MEIS Smoker (finding) [facility] Start: 03-17-2024 End: 03-28-2024 Sex Male (finding) [facility] Start: 1965 Sex Assigned At Male F [facility] Medical Equipment Procedure Code Equipment Code Equipment Origin al Text Equipment Identifier Dates Lead, Capsurefix Novus, 52 Cm - [id number] Start: 08-05-2023 Lead, Capsurefix Novus, 45 Cm - [id number] Start: 08-05-2023 Pacemaker, Dual Chamber, [place] Mri Xt Dr - [id number] Start: 08-05-2023 Clinical Notes 08-31-2020 to 05-23-2024 Amador Son MD - 05/23/2024 8:45 AM ESTPatient Argenis Smion MD - 04/24/2024 11:38 AM Liz Simon [...] A DAY cetirizine (ZYRTEC) 10 mg, Nightly tuilyxaoaqf-snvwtmymw-iteoznoi (TRELEGY-ELLIPTA) 100-62.5-25 mcg blister with device 1 [...] bradycardia status post dual-chamber pacemaker implant (Medtronic [place] XT DR MRI) on August 05, 2023. [...] prepare this document. documented in this encounter [facility] Work Phone: 05-23-2024 Instructions Jazz Flynn RN [...] AMADOR SON MD documented in this encounter [facility] Work Phone: 04-24-2024 History of Present illness Narrative Associated Problem(s): Class 2 severe obesity due to excess calories with serious comorbidity and body mass index (BMI) of 37.0 to 37.9 in adult (CMS/HCC) Weight up 28 pounds in past year. Add ozempic. Associated Problem(s): Essential hypertension, benign ([facility]) BP controlled and monitor PRN. Associated Problem(s): Type 2 diabetes mellitus with hyperglycemia, without long-term current use of insulin ([facility]) Not checking BS and due for A1C. [...] Items Addressed This Visit Essential hypertension, benign ([facility] BP controlled and monitor PRN. Type 2 diabetes mellitus with hyperglycemia, without long-term current use of insulin ([facility]) Not checking BS and due for A1C. Add ozempic. Relevant Medications semaglutide (Ozempic, 0.25 or 0.5 MG/DOSE,) 2 MG/1.5ML solution pen-injector Other Relevant Orders Hemoglobin A1c Class 2 severe obesity due to excess calories with serious comorbidity and body mass index (BMI) of 37.0 to 37.9 in adult ([facility]) Weight up 28 pounds in past year. [...] daily Aspirin therapy. documented in this encounter [facility] 02-06-2024 History of Present illness Narrative Associated [...] DNA probe, direct documented in this encounter [facility] 01-13-2024 History of Present illness Narrative Associated [...] is alert. Assessment/Plan documented in this encounter [facility] 11-09-2023 History of Present illness Narrative CARDIOLOGY [...] DAY cetirizine (ZYRTEC) 10 mg, oral, Nightly wpquxxocbjq-vcftacnny-lfvjendg (TRELEGY-ELLIPTA) 100-62.5-25 mcg blister with device 1 [...] 68 bpm, prolonged AV conduction with a VA interval of 220 ms, QRS durations 100 [...] sinus bradycardia status post dual-chamber pacemaker implant ([employer] [place] XT DR MRI) on August 05, 2023. [...] prepare this document. documented in this encounter [facility] Work Phone: 08-10-2023 History of Present illness [...] some point he had some evaluation in [place] that shows no significant obstructive coronary disease [...] night however but few episodes in the child development specialist hours were also noted 5. No symptoms [...] Diagnosis Date Arrhythmia CHF (congestive heart failure) ([facility]) COPD (chronic obstructive pulmonary disease) ([facility]) Hypertension Social History Social History [...] breakfast cetirizine (ZYRTEC) 10 mg, oral, Nightly oqnfoppppye-hieezojoq-nurnszqr (TRELEGY-ELLIPTA) 100-62.5-25 mcg blister with device 1 [...] prepare this document. documented in this encounter [facility] Work Phone: 08-10-2023 Instructions Vero [...] Amador Son MD documented in this encounter [facility] Work Phone: 08-05-2023 Nurse Note Patient discharge instructions reviewed with patient and , verbalized understanding. Lt chest dressing remains dry/intact, no hematoma, no ecchymosis. Patient able to teachback site care instructions, follow up appointments. IV x2 removed and patient discharged to home via w/c. [facility] 08-05-2023 Nurse Note Patient discharge [...] and ice pack over site. Sterling from [employer] in room speaking to Pt and SO educating on home device monitor. Pt returned to room after echocardiogram. Denies needs at this time. documented in this encounter [facility] Work Phone: 08-05-2023 Nurse Note Patient sitting up in chair, denies any complaints of incisional pain. Lt upper chest incision remains dry/intact. Will begin discharge instructions. [facility] Work Phone: 08-05-2023 Nurse Note Patient ambulated to , gait steady. Pacer rep has already met with patient and . Lt upper chest dressing remains dry/intact. Lt arm in immobilizer and ice pack over site. [facility] Work Phone: 08-05-2023 Note Formatting of this n ote might be different from the original. Post EKG and CXR performed at bedside. Pt denies needs at this time. Left chest remains soft and stable with no hematoma or oozing. [facility] Work Phone: 08-05-2023 Miscellaneous Notes [...] discussed with patient. documented in this encounter [facility] Work Phone: 08-05-2023 Hospital Discharge instructions Ana M Kumari, FOLDING MACHINE OPERATOR-NATURAL FOODS CLERK - 08/05/2023 5:00 PM EDT Images [...] your arm above shoulder level. Do not nut picker items that weigh greater than 10 [...] have been instructed by the device company inbound customer service representative regarding remote home monitoring. [...] sent through Care Everywhere.Pacemaker Insertion Discharge Instructions (Croatian)documented in this encounter [facility] Work Phone: 08-05-2023 Note Formatting [...] Pt denies further needs at this time. [facility] Work Phone: 08-05-2023 Note Table [...] of infection. The patient should call the mold making plastics sheets supervisor immediately if symptoms recur, or for any problems. The patient has been instructed accordingly. 2. Follow up with [facility] office in seven days [...] Device implanted Device implanted Medtronic dual-chamber pacemaker [place] XT DR MRI model number W1 DR 017 number [id number]. Right atrial lead Medtronic 5076/45 serial number [id number] 8 mm [id number]. Imp (more content not included)... [id number] ER 08-05-2023 Note Formatting of this n ote might be different from the original. Sedation Plan ASA 2 Mallampati class: II. Risks, benefits, and alternatives discussed with patient. [facility] Work Phone: 08-05-2023 Attending History [...] some point he had some evaluation in [place] that shows no significant obstructive coronary disease [...] night however but few episodes in the child development specialist hours were also noted 5. No symptoms [...] breakfast cetirizine (ZYRTEC) 10 mg, oral, Nightly qytomyaxinx-xaacezesw-mmhavcsb (TRELEGY-ELLIPTA) 100-62.5-25 mcg blister with device 1 [...] software was utilized to prepare this document. [facility] Work Phone: 08-05-2023 History and [...] some point he had some evaluation in [place] that shows no significant obstructive coronary disease [...] night however but few episodes in the child development specialist hours were also noted 5. No symptoms [...] breakfast cetirizine (ZYRTEC) 10 mg, oral, Nightly iaatrlpuked-bdmtzuazq-yvhgrghy (TRELEGY-ELLIPTA) 100-62.5-25 mcg blister with device 1 [...] prepare this document. documented in this encounter [facility] Work Phone: 08-05-2023 Nurse Note Sterling from [employer] in room speaking to Pt and SO educating on home device monitor. [facility] 08-05-2023 Nurse Note Pt returned to room after echocardiogram. Denies needs at this time. [facility] Work Phone: 07-22-2023 History of [...] some point he had some evaluation in [place] that shows no significant obstructive coronary disease [...] night however but few episodes in the child development specialist hours were also noted 5. No symptoms [...] breakfast cetirizine (ZYRTEC) 10 mg, oral, Nightly eqbsqliyowt-mmhulqawz-wuuyfcyi (TRELEGY-ELLIPTA) 100-62.5-25 mcg blister with device 1 [...] prepare this document. documented in this encounter [facility] Work Phone: 07-22-2023 Instructions Jazz [...] FOR, AND IN THE PRESENCE OF DR. AAMDOR SON MD documented in this encounter [facility] Work Phone: 07-20-2022 Note CONSULTATION [...] right medial portion of his leg. [facility] 05-07-2022 Note CONSULTATION CONSULTATION DATE: 05/07/2022 [...] three months' time unless otherwise indicated. [facility] 01-14-2022 Note CONSULTATION CONSULTATION DATE: 01/14/2022 [...] it was recommended that he see a senior speech pathologist, which he did do. He did a Holter monitor study and is following up with his senior speech pathologist on 01/28/2022. Current medications include gabapentin 300 [...] agrees with the plan of care. [facility] 11-19-2021 Note CONSULTATION CONSULTATION DATE: 11/19/2021 [...] to S1. Activities such as standing, walking, child development specialist and evening hours, stairs, bending and physical [...] be followed up in the clinic post-procedure. [facility] Signed and Approved by: TERESO COLMENARES . 11/27/2021 14:13:00 [facility] 10-22-2021 Note CONSULTATION CONSULTATION DATE: 10/22/2021 [...] patient agrees with the plan of care. [facility] Signed and Approved by: TERESO COLMENARES . 11/04/2021 16:23:00 [facility] 10-01-2021 Note CONSULTATION CONSULTATION DATE: 10/01/2021 HISTORY [...] shape. He has seen Dr. Nunn in [place] in the past regarding his back, and [...] Patient agrees with the plan of care. [facility] Signed and Approved by: TERESO COLMENARES . 10/08/2021 16:01:00 [facility] 08-31-2020 Note Microbiology PROCEDURE: Blood Culture [...] Locations R1: This test was performed at: [facility], [address] [place] [address], [id number] , , [facility] Comment on above: Performed By: #### [id number] ####[place] [address] 08-31-2020 Note Microbiology PROCEDURE: Blood Culture Charcoal [...] This test was performed at: [facility], [address] [place] [address], [facility] , , [facility] Comment on above: Performed By: #### [id number] ####[facility] [id number] [place] [address] Evaluation note Diagnosis 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 Sinus bradycardia Other specified cardiac dysrhythmias Establishing care with new doctor, encounter for BMI 34.0-34.9,adult Sick sinus syndrome (CMS/HCC) Sinoatrial node dysfunction Simple chronic bronchitis (CMS/HCC) Simple chronic bronchitis Current smoker Other fatigue Preoperative cardiovascular examination Pre-operative cardiovascular examination documented in this encounter [facility] Work Phone: Evaluation note* Diagnosis [...] dysfunction Other fatigue documented in this encounter [facility] Work Phone: Evaluation note* Diagnosis Localized swelling on left hand S/P placement of cardiac pacemaker 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 Abnormal stress test Other nonspecific abnormal cardiovascular system function study Sinus bradycardia Other specified cardiac dysrhythmias Sick sinus syndrome (CMS/HCC) Sinoatrial node dysfunction Essential hypertension, benign BMI 34.0-34.9,adult Current smoker documented in this encounter [facility] Work Phone: Evaluation note* Diagnosis Localized swelling on left hand S/P placement of cardiac pacemaker documented in this encounter [facility] Work Phone: Evaluation note* Diagnosis Cardiac pacemaker in situ Sinoatrial node dysfunction (Multi) Sinoatrial node dysfunction documented in this encounter [facility] Work Phone: Evaluation note* Diagnosis Cardiac pacemaker in situ Sinoatrial node dysfunction (Multi) Sinoatrial node dysfunction documented in this encounter [facility] Work Phone: Evaluation note* Diagnosis Type 2 [...] lumbosacral intervertebral disc documented in this encounter [facility] Healthcare[facility] noteNo assessment information availableThe [facility] Work Phone: Evaluation note* Diagnosis MRI safe [...] (pediatric) Current smoker documented in this encounter [facility] Work Phone: Evaluation note* Diagnosis Pacemaker Cardiac pacemaker in situ documented in this encounter [facility] Work Phone: Evaluation note* Diagnosis Type 2 [...] hyperglycemia, without long-term current use of insulin ([facility]) Essential hypertension, benign (CMS/HCC) Essential hypertension, benign Class 2 severe obesity due to excess calories with serious comorbidity and body mass index (BMI) of 37.0 to 37.9 in adult ([facility]) documented in this encounter [facility] HealthcareEvaluation note* Diagnosis Cardiac pacemaker in situ Sinoatrial node dysfunction (Multi) Sinoatrial node dysfunction documented in this encounter [facility] Work Phone: Evaluation note* Diagnosis Degeneration of lumbar intervertebral disc Degeneration of lumbar or lumbosacral intervertebral disc documented in this encounter [facility] HealthcareEvaluation note* Diagnosis Type 2 diabetes [...] (BMI) 35.0-35.9, adult documented in this encounter [facility] HealthcareEvaluation note* Diagnosis Degeneration of lumbar intervertebral disc Degeneration of lumbar or lumbosacral intervertebral disc documented in this encounter [facility] HealthcareEvaluation note* Diagnosis Other intervertebral disc degeneration, lumbar region Degeneration of lumbar or lumbosacral intervertebral disc documented in this encounter [facility] HealthcareEvaluation note* Diagnosis Dysuria- Primary Acute prostatitis Pyuria Other nonspecific finding on examination of urine documented in this encounter [facility] HealthcareEvaluation note* Diagnosis Type 2 diabetes [...] hyperglycemia, without long-term current use of insulin ([facility]) Essential hypertension, benign ([facility]) Essential hypertension, benign Class 2 severe obesity due to excess calories with serious comorbidity and body mass index (BMI) of 37.0 to 37.9 in adult ([facility]) Degeneration of lumbar intervertebral disc Degeneration of lumbar or lumbosacral intervertebral disc documented in this encounter [facility] Healthcare[facility] note* Diagnosis Cardiac pacemaker in situ- Primary Sick sinus syndrome (Multi) Sinoatrial node dysfunction MRI safe cardiac pacemaker in situ Abnormal EKG Nonspecific abnormal electrocardiogram (ECG) (EKG) Chronotropic incompetence Other specified conduction disorder Sinoatrial node dysfunction (Multi) Sinoatrial node dysfunction Sinus bradycardia Other specified cardiac dysrhythmias Current smoker BMI 37.0-37.9, adult documented in this encounter [facility] Work Phone: Evaluation note* Diagnosis Sinus bradycardia Other specified cardiac dysrhythmias Sick sinus syndrome (Multi) Sinoatrial node dysfunction Chronotropic incompetence Other specified conduction disorder MRI safe cardiac pacemaker in situ documented in this encounter [facility] Work Phone: History of Present illness Narrative* Patient is here for cardiovascular evaluation for second opinion in regard to documents resting sinus bradycardia. The patient is 56-year-old with history of tobacco use and COPD was evaluated recently due to shortness of breath and his stress test showed questionable inferior wall ischemia. This led to a cardiac evaluation in [place] and its not clear to me whether [...] recent ischemic evaluation * 5 follow-up in [address] [place], [place] [address] [facility] [employer] Work Phone: History of Present illness Narrative* Patient is here for cardiovascular evaluation for second opinion in regard to documents resting sinus bradycardia. The patient is 56-year-old with history of tobacco use and COPD was evaluated recently due to shortness of breath and his stress test showed questionable inferior wall ischemia. This led to a cardiac evaluation in [place] and its not clear to me whether [...] ischemic evaluation * 5 follow-up in 6 [facility] Work Phone: History of Present illness Narrative* Patient is here for cardiovascular evaluation for second opinion in regard to documents resting sinus bradycardia. The patient is 56-year-old with history of tobacco use and COPD was evaluated recently due to shortness of breath and his stress test showed questionable inferior wall ischemia. This led to a cardiac evaluation in [place] and its not clear to me whether [...] ischemic evaluation * 5 follow-up in 6 [facility] Work Phone: History of Present illness [...] ischemic evaluation. He underwent cardiac catheterization in [place] which showed no significant obstructive disease * [...] EKG or earlier if the need arise [facility] [facility] DO Work Phone: Reason for visit [...] Date Expiration Date Visits Requested Visits Authorized [id number] Pending Review Perform Procedure 11/09/2023 11/08/2024 [address] [facility] Work Phone: Summary Purpose Family History No [...] Preoperative cardiovascular examination Procedures Transthoracic Echo Complete VA ECHO TTHRC R-T 2D W/WOM-MODE COMPL SPEC&COLR D Amador Son MD [address] [address] Referral ID Status Reason Start Date Expiration Date Visits Requested Visits Authorized [id number] Pending Review Perform Procedure 07/22/2023 07/21/2024 1 1 Specialty Diagnoses / Procedures Referred By Contac t Referred To Contact Diagnoses Sinus bradycardia Establishing care with new doctor, encounter for Procedures ECG 12 lead (Clinic Performed) Amador Son MD [address] [address] Referral ID Status Reason Start Date Expiration Date V isits Requested Visits Authorized [id number] Authorized 07/22/2023 07/21/2024 1 1 Specialty Diagnoses / Procedures Referred By Contac t Referred To Contact Radiology Diagnoses Pacemaker Procedures XR chest 2 views Ana M Kumari, FOLDING MACHINE OPERATOR-NATURAL FOODS CLERK [address] [facility], [address] [address] Referral ID Status Reason Start Date Expiration Date Visits Requested Visits Authorized [id number] Authorized Perform Procedure 08/05/2023 08/04/2024 1 1 Specialty Diagnoses / Procedures Referred By Contac t Referred To Contact Cardiology Diagnoses Pacemaker Procedures Cardiac Device Check - In Clinic Ana M Kumari APRN-NATURAL FOODS CLERK [address] [facility], [place] [place] [id number] Referral ID Status Reason Start Date Expiration Date Visits Requested Visits Authorized [id number] Pending Review Perform Procedure 08/05/2023 08/04/2024 1 1 Specialty Diagnoses / Procedures Referred By Contac t Referred To Contact Cardiology Diagnoses Localized swelling on left hand S/P placement of cardiac pacemaker Procedures Vascular US upper extremity venous duplex left Barbour-Ellacott, Naima E, FOLDING MACHINE OPERATOR-NATURAL FOODS CLERK [address] [facility], [address] [address] Referral ID Status Reason Start Date Expiration Date Visits Requested Visits Authorized [id number] Authorized Perform Procedure 08/09/2023 08/08/2024 1 1 Specialty Diagnoses / Procedures Referred By Contac t Referred To Contact Cardiology Diagnoses Cardiac pacemaker in situ Sinoatrial node dysfunction (Multi) Procedures Cardiac Device Check - Remote Amador Son MD [address] [address] Referral ID Status Reason Start Date Expiration Date Visits Requested Visits Authorized [id number] Pending Review Perform Procedure 08/08/2023 08/07/2024 1 1 Specialty Diagnoses / Procedures Referred By Contac t Referred To Contact Cardiology Diagnoses Sinus bradycardia Sick sinus syndrome (Multi) Chronotropic incompetence MRI safe cardiac pacemaker in situ Procedures Cardiac Device Check - In Clinic Naima Wright FOLDING MACHINE OPERATOR-NATURAL FOODS CLERK [address] [address] Referral ID Status Reason Start Date Expiration Date Visits Requested Visits Authorized [id number] Pending Review Perform Procedure 11/09/2023 11/08/2024 1 1 Specialty Diagnoses / Procedures Referred By Contac t Referred To Contact Cardiology Diagnoses Sick sinus syndrome (Multi) MRI safe cardiac pacemaker in situ Procedures Follow Up In Cardiology Naima Wright FOLDING MACHINE OPERATOR-NATURAL FOODS CLERK [address] [facility], [address] [address] Amador Son MD [address] [address] Referral ID Status Reason Start Date Expiration Date V isits Requested Visits Authorized [id number] Authorized 11/09/2023 11/08/2024 1 1 Specialty Diagnoses / Procedures Referred By Contac t Referred To Contact Diagnoses Sinus bradycardia Procedures ECG 12 lead (Clinic Performed) Naima Wright FOLDING MACHINE OPERATOR-NATURAL FOODS CLERK [address] [facility], [address] [place] [address] Referral ID Status Reason Start Date Expiration Date V isits Requested Visits Authorized [id number] Authorized 11/09/2023 11/08/2024 1 1 Chief Complaint [...] section and content) DATE CREATED AUTHOR 03/06/2021 [facility] DATE CREATED AUTHOR AUTHOR'S ORGANIZ ATION 03/12/2021 [facility] DATE CREATED AUTHOR AUTHOR'S ORGANIZ ATION 02/16/2022 [facility] DATE CREATED AUTHOR AUTHOR'S ORGANIZ ATION 07/16/2022 [facility] DATE CREATED AUTHOR AUTHOR'S ORGANIZ ATION 07/16/2022 [facility] DATE CREATED AUTHOR AUTHOR'S ORGANIZ ATION 09/17/[address] [facility] DATE CREATED AUTHOR AUTHOR'S ORGANIZ ATION 04/03/2024 [facility] DATE CREATED AUTHOR AUTHOR'S ORGANIZ ATION 04/27/2024 [facility] DATE CREATED AUTHOR AUTHOR'S ORGANIZ ATION 04/30/2024 [facility] DATE CREATED AUTHOR AUTHOR'S ORGANIZ ATION 05/26/2024 [facility] DATE CREATED AUTHOR AUTHOR'S ORGANIZ ATION 05/26/2024 [facility] Reason for Visit (unrecogniz ed section and content) Reason Comments New Patient Visit Pt is here today as a new patient from Dr. Ty Specialty Diagnoses / Procedures Referred By Isela mckay Referred To Contact Cardiology Diagnoses Sinus bradycardia Valentino Ty MD [address] [facility], [address] [place] [address] Amador Son MD [address] [facility], [facility] [address] [place] [address] Referral ID Status Reason Start Date Expiration Date Visits Requested Visits Authorized [id number] Authorized Specialty Services Required 07/15/2023 07/14/2024 1 1 Specialty Diagnoses / Procedures Referred By Contac t Referred To Contact Diagnoses Sinus bradycardia Chronotropic incompetence Sick sinus syndrome (CMS/HCC) Other fatigue Sinus bradycardia [R00.1] Chronotropic incompetence [I45.89] Sick sinus syndrome (CMS/HCC) [I49.5] Other fatigue [R53.83] Procedures VA INS NEW/RPLCMT PRM PM W/TRANSV ELTRD ATRIAL&VENT PPM IMPLANT DUAL Amador Son MD 254 [facility] [address] [place] [address] [facility] [address] [place] [address] Referral ID Status Reason Start Date Expiration Date Visits Re quested Visits Authorized [id number] 1 1 Reason Comments Wound Check Patient is having sw elling in his right hand Specialty Diagnoses / Procedures Referred By Isela t Referred To Contact Cardiology Diagnoses Localized swelling on left hand S/P placement of cardiac pacemaker Procedures Vascular US upper extremity venous duplex left Naima Wright E, FOLDING MACHINE OPERATOR-NATURAL FOODS CLERK [address], [facility] [address] [place] [address] Referral ID Status Reason Start Date Expiration Date Visits Requested Visits Authorized [id number] Authorized Perform Procedure 08/09/2023 08/08/2024 1 1 Specialty Diagnoses / Procedures Referred By Katyac t Referred To Contact Cardiology Diagnoses Cardiac pacemaker in situ Sinoatrial node dysfunction (Multi) Procedures Cardiac Device Check - Remote Amador Son MD [address] [place] [address] [address] [place] [address] Referral ID Status Reason Start Date Expiration Date Visits Requested Visits Authorized [id number] Pending Review Perform Procedure 08/08/2023 08/07/2024 1 1 Reason Onset Date Comments Med Refill 03/01/2024 Reason Onset Date Comments Med Refill 03/30/2024 Reason Comments Follow-up Pt is here today fol lowing up with device check Specialty Diagnoses / Procedures Referred By Contac t Referred To Contact Diagnoses Sinus bradycardia Procedures ECG 12 lead (Clinic Performed) Naima Wright, [facility] [address], [address] [address] Referral ID Status Reason Start Date Expiration Date V isits Requested Visits Authorized [id number] Authorized 11/09/2023 11/08/2024 1 1 Specialty Diagnoses / Procedures Referred By Contac t Referred To Contact Cardiology Diagnoses Pacemaker Procedures Cardiac Device Check - In Clinic Ana M Kumari, [facility] [address], [address] [address] Referral ID Status Reason Start Date Expiration Date Visits Requested Visits Authorized [id number] Pending Review Perform Procedure 08/05/2023 08/04/2024 1 1 Specialty Diagnoses / Procedures Referred By Contac t Referred To Contact Radiology Diagnoses Pacemaker Procedures XR chest 2 views Ana M Kumari, [facility] [address], [address] [address] Referral ID Status Reason Start Date Expiration Date Visits Requested Visits Authorized [id number] Authorized Perform Procedure 08/05/2023 08/04/2024 1 1 [...] Procedures Follow Up In Cardiology Naima Wright, FOLDING MACHINE OPERATOR-NATURAL FOODS CLERK Phone: tel: fax: Amador Son MD [address] [place] [address] Phone: tel: fax: Referral ID Status Reason Start Date Expiration Date V isits Requested Visits Authorized [id number] Authorized 11/09/2023 11/08/2024 1 1 Care Teams (unrecognized sec tion and content) Wet Finisher Wool Relationship Specialty Start Date End Date Ishmael Simon MD [address] [place] [address] PCP - General Family Medicine 06/29/23 Wet Finisher Wool Relationship Specialty Start Date End Date Ishmael Simon MD [address] [place] [address] PCP - General Family Medicine 06/29/23 Wet Finisher Wool Relationship Specialty Start Date End Date Ishmael Simon MD [address] [place] [address] PCP - General Family Medicine 06/29/23 Wet Finisher Wool Relationship Specialty Start Date End Date Ishmael Simon MD [address] [place] [address] PCP - General Family Medicine 06/29/23 Wet Finisher Wool Relationship Specialty Start Date End Date Ishmael Simon MD PCP - General Family Medicine 06/29/23 Wet Finisher Wool Relationship Specialty Start Date End Date Ishmael Simon MD [address] [place] [address] PCP - General Family Medicine 06/29/23 Naima Wright, FOLDING MACHINE OPERATOR-NATURAL FOODS CLERK [address], [address] [place] [address] Nurse Practitioner Cardiology 11/07/23 Wet Finisher Wool Relationship Specialty Start Date End Date Ishmael Simon MD [address] [address] PCP - General Family Medicine 10/10/23 Team [...] March 27, 2024 End: March 27, 2024 Wet Finisher Wool Relationship Specialty Start Date End Date Ishmael Simon MD [address] [place] [address] PCP - General Family Medicine 06/29/23 Naima Wright, FOLDING MACHINE OPERATOR-NATURAL FOODS CLERK [address], [address] [place] [address] Nurse Practitioner Cardiology 11/07/23 Wet Finisher Wool Relationship Specialty Start Date End Date Ishmael Simon MD [address] [place] [address] PCP - General Family Medicine 06/29/23 Naima Wright, FOLDING MACHINE OPERATOR-NATURAL FOODS CLERK [address] [facility], [address] [place] [address] Nurse Practitioner Cardiology 11/07/23 Wet Finisher Wool Relationship Specialty Start Date End Date Ishmael Simon MD [address] [place] [address] PCP - General Family Medicine 10/10/23 Wet Finisher Wool Relationship Specialty Start Date End Date Ishmael Simon MD [address] [place] [address] PCP - General Family Medicine 10/10/23 Wet Finisher Wool Relationship Specialty Start Date End Date Ishmael Simon MD [address] [place] [address] PCP - General Family Medicine 10/10/23 Wet Finisher Wool Relationship Specialty Start Date End Date Ishmael Simon MD [address] [place] [address] PCP - General Family Medicine 06/29/23 Naima Wright, FOLDING MACHINE OPERATOR-NATURAL FOODS CLERK [address], [facility] [address] [place] [address] Nurse Practitioner Cardiology 11/07/23 Wet Finisher Wool Relationship Specialty Start Date End Date Ishmael Simon MD [address] [place] [address] PCP - General Family Medicine 10/10/23 Wet Finisher Wool Relationship Specialty Start Date End Date Ishmael Simon MD [address] [place] [address] PCP - General Family Medicine 10/10/23 Wet Finisher Wool Relationship Specialty Start Date End Date Ishmael Simon MD [address] [place] [address] PCP - General Family Medicine 10/10/23 Wet Finisher Wool Relationship Specialty Start Date End Date Ishmael Simon MD [address] [place] [address] PCP - General Family Medicine 10/10/23 Wet Finisher Wool Relationship Specialty Start Date End Date Ishmael Simon MD [address] [place] [address] PCP - General Family Medicine 10/10/23 Wet Finisher Wool Relationship Specialty Start Date End Date Ishmael Simon MD [address] [place] [address] PCP - General Family Medicine 10/10/23 Wet Finisher Wool Relationship Specialty Start Date End Date Ishmael Simon MD [address] [place] [address] PCP - General Family Medicine 10/10/23 Wet Finisher Wool Relationship Specialty Start Date End Date Ishmael Simon MD [address] [place] [address] PCP - General Family Medicine 10/10/23 Wet Finisher Wool Relationship Specialty Start Date End Date Ishmael Simon MD [address] [place] [address] PCP - General Family [facility] 06/29/23 Amador Son MD [address], [address] [address] Cooperative Education Coordinator Electrophysiology 05/17/24 Wet Finisher Wool Relationship Specialty Start Date End Date Ishmael Simon MD [address] [place] [address] PCP - General [facility] Medicine 06/29/23 Amador Son MD [address], [address] [address] Cooperative Education Coordinator Electrophysiology 05/17/24 Scheduled Active and Recently Administ [...] on Tue08/05/23 at 1230, Preprocedure, call center associate to EP lab 1221 (New Bag - [...] BE BASED ON THE PRIMARY CLINICAL RECORDS. [facility] provides no warranty or guarantee of the accuracy or completeness of information in this document.
[2024-05-28] MEDS: OMEPRAZOLE 40 MG CAPSULE.DR PO (08:25)
[2024-05-28] MEDS: OXYCODONE HCL/ACETAMINOPHEN 5MG/325MG 1 TAB PO (08:25)
[2024-05-28] MEDS: CETIRIZINE HCL 10 MG TABLET PO (08:25)
[2024-05-28] MEDS: MONTELUKAST SODIUM 10 MG TABLET PO (08:26)
[2024-05-28] MEDS: NABUMETONE 500 MG TABLET PO (08:27)
[2024-05-28] MEDS: FUROSEMIDE 40 MG TABLET PO (08:27)
[2024-05-28] MEDS: BACLOFEN 10 MG TABLET PO (08:27)
[2024-05-28] MEDS: SPIRONOLACTONE 100 MG TABLET PO (08:35)
--- NOTE | 2024-05-28 10:40 | CM.NOTE ---
Rounds made with Dr. Yang, pt will have walk test. If pt tolerates being off oxygen will discharge to home today. Pt will f/u with PCP.
--- NOTE | 2024-05-28 11:00 | CM.NOTE ---
Pt will change to OBS after speaking with Dr. Yang.
--- NOTE | 2024-05-28 11:02 | P.DS_ITS ---
DS: Providers Provider Date of admission: 05/27/24 16:01 Primary care physician: Ishmael Watts MD Admitting clinician: Phill Coker Attending physician on admission: Phill Coker Attending physician on discharge: Shaikh Trey Discharging clinician: Shaikh Trey Anticipated date of discharge: 05/28/24 DS: Diagnosis Discharge Diagnosis (1) COPD exacerbation: Assessment and plan: Improved. Minimal wheezing and patient subjectively feels a lot better. Stable for discharge on Prednisone taper. (2) Acute on chronic respiratory failure with hypoxia: Assessment and plan: Uses O2 at night. Was requiring O2 during daytime also with pulse Ox as low as 88% on RA upon admission. Resolved. (3) Hypertension: Assessment and plan: Poorly controlled during admission likely due to acute illness and IV steroids. Will need outpatient f/u to adjust medication if needed by PCP. Qualifiers: Hypertension type: primary hypertension Qualified Code(s): I10 - Essential (primary) hypertension DS: Summary Hospital Course Hospital Course: 59-year-old male with history of chronic respiratory failure with hypoxia, COPD presented to ER with 2 to 3 days of worsening cough, shortness of breath. He was hypoxic with pulse ox as low as 88% upon admission. Uses oxygen at night only for COPD. He also was quite dyspneic with increased work of breathing and tachypnea for which she was admitted for COPD exacerbation. Chest x-ray did not reveal any evidence of pneumonia. He tested negative for COVID and influenza. He was empirically treated with IV Levaquin for presumed bacterial pneumonia/bronchitis along with IV steroids and inhaled DuoNebs for COPD exacerbation. He clinically improved during the course of admission and was taken off of oxygen and is feeling considerably better after 1 day of hospital admission/treatment. Patient is medically stable for discharge on prednisone taper along with p.o. azithromycin. He was educated on worrisome signs and symptoms that should prompt him to seek care and return to ER for further evaluation. He was also instructed to follow-up with PCP in 1 to 2 weeks. Status at Discharge Functional status at discharge: independent ambulation Overall status at discharge: patient is back to baseline Time Spent with Patient Time attestation: Total time spent providing and/or coordinating discharge services: Exam Constitutional Vital Signs, click to edit/add: Last Vital Signs Temp 98.2 F 05/28/24 07:00 Pulse 65 05/28/24 07:00 Resp 18 05/28/24 07:00 BP 155/80 H 05/28/24 07:00 Pulse Ox 93 L 05/28/24 10:23 O2 Del Method Room Air 05/28/24 10:23 O2 Flow Rate 2 05/28/24 07:00 Documenting provider has reviewed patient's vital signs: yes Common normals: no apparent distress and oriented x3 General appearance: cooperative Respiratory Common normals: normal respiratory effort Effort & inspection: able to speak in complete sentences Auscultation: wheezes and bronchial breath sounds Cardio Common normals: regular rate, S1 normal heart sound and S2 normal heart sound Rate: regular rate Heart sounds: S1 normal and S2 normal Extremity Common normals: no clubbing, cyanosis or edema Neuro Common normals: oriented x3, moves all extremities and no focal motor deficits Psych Common normals: mental status grossly normal, denies hallucinations, denies homicidal ideation and denies suicidal ideation DS: Data Data Completed and Pending Labs on day of discharge: Labs from last 24 hours 05/28/24 05/27/24 05/27/24 05:51 15:11 12:34 WBC 6.7 8.8 RBC 4.88 4.83 Hgb 15.2 15.1 Hct 45.0 44.8 MCV 92.2 92.8 MCH 31.1 31.3 MCHC 33.8 33.7 RDW 12.5 12.8 Plt Count 206 200 MPV 10.1 10.1 Neut % (Auto) 87.2 H 77.9 H Lymph % (Auto) 10.3 L 10.9 L [place] % (Auto) 1.5 L 8.2 Eos % (Auto) 0.0 L 0.8 L Baso % (Auto) 0.1 L 0.8 Neut # (Auto) 5.9 6.9 H Lymph # (Auto) 0.7 L 1.0 L [place] # (Auto) 0.1 L 0.7 Eos # (Auto) 0.0 0.1 Baso # (Auto) 0.0 0.1 Abs Immat Gran (auto) 0.06 H 0.12 H Imm/Tot Granulo (auto) 0.9 H 1.4 H Sodium 135 L 135 L Potassium 4.1 3.9 Chloride 98 97 L Carbon Dioxide 24.7 27.1 Anion Gap 16.4 14.8 BUN 19.0 H 14.0 Creatinine 1.34 H 1.12 Est GFR ( Amer) >60 >60 Est GFR (Non-Af Amer) 54 L >60 BUN/Creatinine Ratio 14.2 12.5 Glucose 248 H 130 H Calcium 8.7 8.7 Total Bilirubin 0.6 AST 30 ALT 47 Alkaline Phosphatase 98 Troponin I High Sens 5.0 NT-Pro-B Natriuret Pep 60.0 Total Protein 6.9 Albumin 3.6 Globulin 3.3 Albumin/Globulin Ratio 1.1 Influenza Type A Ag Negative Influenza Type B Ag Negative SARS-CoV-2 Ag (CV2AG) Negative Streptococcus Screen Negative Discharge Plan Discharge Disposition: Home, Self-Care Discharge Medications: New azithromycin 250 mg tablet 250 mg PO DAILY Qty: 4 0RF prednisone 20 mg tablet 20 mg PO DAILY Qty: 20 0RF Rx Instructions: 3 tabs daily x 3 days, 2 tabs daily x 3 days, 1 tab daily x 3 days, 1/2 tab daily for 4 days. benzonatate 100 mg capsule 100 mg PO TID PRN (Reason: cough) Qty: 20 0RF Continued cetirizine [24Hour Allergy] 10 mg tablet 10 mg PO DAILY PRN (Reason: allergy symptoms) gabapentin 300 mg capsule 300 mg PO .at bedtime albuterol 90 mcg/actuation aerosol 90 mcg inhalation .Q6HRS PRN (Reason: shortness of breath or wheezing) furosemide 40 mg tablet 40 mg PO BID montelukast 10 mg tablet 10 mg PO DAILY nabumetone 500 mg tablet 500 mg PO BID spironolactone 100 mg tablet 100 mg PO DAILY Trelegy Ellipta 100-62.5-25 mcg blister with device 1 inh inhalation DAILY omeprazole 40 mg capsule,delayed release(DR/EC) 40 mg PO DAILY oxycodone-acetaminophen 7.5-325 mg tablet 1 tab PO Q6H baclofen 10 mg tablet 10 mg PO BID Rx Instructions: 1/2 to 1 tab twice daily Activity: increase activity as tolerated Diet: advance to your usual diet Print Language: Argentine Patient Instructions: Prednisone (By mouth), Upper Respiratory Infection (DC) Forms: Portal Instructions Follow Up Appointments: @ 9:30am with Dr. Watts [phone]
--- OUTSIDE RECORDS SUMMARY | 2024-05-28 12:00 | XMS_ITS | CCD ---
Author Organization [facility] CliniSyor Care Team Providers Care Clinical Data Research Name Role Phone SIMONE RUIZ Admitting Unavailable SIMONE RUIZ Attending Unavailable ISHMAEL SIMON Referring Unavailable ISHMAEL SIMON Primary Care Unavailable JEY ELISE R Attending Unavailable JEY ELISE R Surgeon Unavailable [place] Procedure Practitioner Unavailab ISHMAEL Campoverde Primary Care [...] DR ISHMAEL Rae Attending Unavailable NADERER, DR IHSMAEL Rae Consulting Unavailable NADERER, DR ISHMAEL Rae [...] LANE, Ishmael Vallejo Primary Care Provider Adriana BAILEY-AUTOMATION CONSULTANT, Naima E Unavailable Ishmael Simon MD Primary Care Provider Ishmael Simon MD Primary Care Provider [phone] Rubio FARM EQUIPMENT MECHANIC-CaDnielle Attending Provider Danielle Bergeron Attending Unavailable ChloeererIshmael Primary Care Unavailable Danielle Bergeron Admitting Unavailable Danielle Bergeron Attending Unavailable Chloeeremarilee, Ishmael Primary Care Unavailable Danielle Bergeron Admitting Unavailable NADERER, ISHMAEL Attending Unavailable NADERER, ISHMAEL Attending Unavailable NADERER, ISHMAEL Attending Unavailable NADERER, ISHMAEL Attending Unavailable Amy LANE, Jong Villalobos Attending Unavailable Amador Son MD Unavailable [phone] VALENTINO TY Attending [facility]available [facility] SY Primary Care Unavailabl e TITOOULNIC, MOURHAF Referring Unavailable [facility] Primary Care Unavailabl e SHAN SONTO N Attending Unavailable NADERERISHMAEL SY Primary Care Unavailabl e TITOOULHOMEI MOURHAF Referring Unavailable HUY AMADOR N Attending Unavailable NADERER, ISHMAEL SY Primary Care Unavailabl e NADERER, ISHMAEL [employer] Primary Care Unavailabl e NAIMA WRIGHT E Attending Unavaila ble NADERER, ISHMAEL SY Primary Care Unavailabl e TRABOULSSI, BETHANYF Attending Unavailable KARSON MOURHAF Referring Unavailable NADEREISHMAEL Hunt SY Primary Care Unavailabl e HUY AMADOR N Attending Unavailable ADRIANA NAIMA E Referring Unavaila ble NADERERISHMAEL SY Primary Care Unavailabl e ADRIANA NAIMA E Referring Unavaila ble NADERER, ISHMAEL [employer] Primary Care Unavailabl e HUY, AMADOR N [...] ADRIANA NAIMA E Referring Unavaila ble NADERERISHMAEL YS Primary Care Unavailabl e Medications Current Medications [...] 12:00am take 1 capsule by mouth once ipero ly Vitamin D 50 MCG (2000 UT) [...] hyperglycemia, without long-term current use of insulin ([facility]) Inject 0.75 mg under the [...] dose by inhal ation in the morning Mrijjajjvmg-Ehwknyfff-Jdtffp (Trelegy El lipta) 100-62.5-25 MCG/ACT aerosol powder [...] 1 capsule by inhalation once daily Tiotropium [place] (Spiriva With Handihaler) 18 mcg capsule, w/inhalation [...] (BMI) of 37.0 to 37.9 in adult ([facility])] Onset: 04-13-2023 04-24-2024 Chronic Other [...] 04-24-2024 04-24-2024 Other aftercare (1 source) Other watermaster (current) drug therapy; Translations: [OTH BIOLOGICAL LAB TECHNICIAN CURRENT DRUG THERAPY] Onset: 05-13-2022 Episodic Other aftercare (13 sources) Long-term current use of drug therapy; Translations: [Other watermaster (current) drug therapy] Onset: 04-13-2023 04-13-2023 Episodic [...] Device Check - In Cl inicon 05-23-2024 [facility] Work Phone: Radiology Study observation (narrative) [facility] Work Phone: ECG 12 lead (Clinic Performe d)on 05-23-2024 EKG performed today shows atrial paced rhythm at rate of 74 bpm QRS ration 100 ms QT corrected 448 ms. Rhythm strip shows the same pattern. [facility] Work Phone: [facility] Work Phone: MLR HEMOGLOBIN A1Con 024 Glucose [Mass/Vol] 131 mg/dL [facility] HbA1c (Bld) [Mass fraction] 6.2 % 4.5 - 6.2 % [facility] Comment on above: ADA RECOMMENDED LIMI T 4.0 - 6.0 ADA THERAPEUTIC TARGET < 7.0 ACTION SUGGESTED > 7.0 CLINISYNC [facility] Magnetic resonance imaging r eportOrdered By: Germán Murphy on 03-27-2024 Study report [facility] Main [place] [address] [place], [place] [id number] MRI Report Signed Patient: Liliana Michaels JR MR#: [id number] : 1965 Acct:[id number] Age/Sex: 59 / M ADM Date: 4 Loc: MR Room: Type: [facility] Attending Dr: Danielle GAYTAN Copies to: LUKAS Burns~ Ordering Provider: LUKAS Burns Date of Service: 03/27/24 MR/MR lumbar spine wo con: LUMBAR DDD ([id number]) XR/XR pre/post mri xray: LUMBAR DDD MRI [...] Murphy Jr., D.OAtiya03/27/2024 11:57 AM Dictation Location: [place] [address] Transcribed By: [facility] 03/27/24 1157 Dictated By: Germán Murphy Jr, DO 03/27/24 1148 Signed By: 03/27/24 1157 [facility] XR pre/post mri xrayon 03-27 XR pre/post mri xray [facility] [place] [address] MRI Report Signed Patient: Liliana Michaels JR MR#: [id number] : 1965 Acct:[id number] Age/Sex: 59 / M ADM Date: 03/27/24 Loc: MR Room: Type: [facility] Attending Dr: Danielle GAYTAN Copies to: LUKAS Burns Ordering Provider: LUKAS Burns Date of Service: 03/27/24 MR/MR lumbar spine wo con: LUMBAR DDD ([id number]) XR/XR pre/post mri xray: LUMBAR DDD MRI [...] Murphy Jr., D.O.03/27/2024 11:57 AM Dictation Location: [place] [address] Transcribed By: [facility] 03/27/24 1157 Dictated By: Germán Murphy Jr, DO 03/27/24 1148 Signed By: 03/27/24 1157 Normal [facility] XR chest 2V*on 03-16-2024 XR chest 2V* [facility] Main [place] [address] [place] [address] XRay Report Signed Patient: Liliana Michaels JR MR#: [id number] : 1965 Acct:[id number] Age/Sex: 59 / M ADM Date: 03/16/24 Loc: [facility] Room: Type: [facility] Attending Dr: Danielle GAYTAN Copies [...] Elia Rodrigez M.D.03/16/2024 8:54 AM Dictation Location: [place] [address] Transcribed By: [facility] 03/16/24 0854 Dictated By: Elia Rodrigez DO 03/16/24 0849 Signed By: 03/16/24 0854 Normal [facility] Cardiac Device Check - Remot neeta 02-14-2024 [facility] Work Phone: Radiology Study observation (narrative) [facility] Work Phone: TBH UA (CLEAN/CATCH) MICROSC OPIC [...] Test strip Ql (U) LARGE Abnormal NEGATIVE [facility] NITRITE URINE Negative NEGATIVE [facility] pH (U) 6.0 [pH] 5.0 - 9.0 [facility] PROTEIN URINE Negative NEG/TRACE mg/dL [facility] SPECIFIC GRAVITY URINE 1.015 1.005 - 1.025 [facility] URINE MICROSCOPIC INDICATED YES [facility] UROBILINOGEN URINE 0.2 EU/dL 0.2 - 1.0 EU/dL [facility]INISYNC [facility] XR CHEST 2 VIEWSon XR CHEST 2 VIEWS Interpreted By: Sancho Gross, STUDY: XR CHEST 2 VIEWS; 11/09/2023 9:46 am INDICATION: Signs/Symptoms:Pacem marilyn. COMPARISON: 08/05/2023 ACCESSION NUMBER(S): [id number] ORDERING CLINICIAN: ANA M KUMARI FINDINGS: Left-sided pacemaker in place. CARDIOMEDIASTINAL SILHOUETTE: Cardiomediastinal silhouette is normal in size and configuration. LUNGS: Lungs are clear. ABDOMEN: No remarkable upper abdominal findings. BONES: No acute osseous changes. IMPRESSION: 1. No evidence of acute cardiopulmonary process. MACRO: None Signed by: Sancho Gross 11/10/2023 8:35 AM Dictation workstation: [id number] [facility] Comment on above: Order Comment: Repor t to [facility] registration on 11/09/2023 at 8:30 AM for chest x-ray and device check prior to appointment with Dr. Son at 10 AM Cardiac Device Check - Remot neeta 09-26-2023 [facility] Work Phone: Radiology Study observation (narrative) [facility] Work Phone: US.doppler Upper extremity v ein - lefton 08-10-2023 Exam negative for acute deep venous thrombosis in the left upper extremity MACRO: None Signed by: Simone Ramos 08/10/2023 3:07 PM Dictation workstation: [id number] MMODAL Interpreted By: Simone Ramos, STUDY: VASC US UPPER EXTREMITY VENOUS DUPLEX LEFT; 08/10/2023 2:47 pm INDICATION: Signs/Symptoms: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 COMPARISON: Portable chest 05 August 2023 ACCESSION NUMBER(S): [id number] ORDERING CLINICIAN: NAIMA WRIGHT TECHNIQUE: Vascular ultrasound [...] Portable chest 05 August 2023 ACCESSION NUMBER(S): [id number] ORDERING CLINICIAN: NAIMA WRIGHT TECHNIQUE: Vascular ultrasound [...] Simone Ramos 08/10/2023 3:07 PM Dictation workstation: [id number] [facility] Work Phone: Radiology Study observation (narrative) [facility] Work Phone: US.doppler Upper extremity v ein - leftOrdered By: Simone Ramos on 08-10-2023 [facility] Work Phone: VASC US UPPER EXTREMITY VENO US DUPLEX LEFTon 08-10-2023 VASC US UPPER EXTREMITY VENOUS DUPLEX LEFT Interpreted By: Simone Ramos, STUDY: VASC US UPPER EXTREMITY VENOUS DUPLEX LEFT; 08/10/2023 2:47 pm INDICATION: Signs/Symptoms: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 COMPARISON: Portable chest 05 August 2023 ACCESSION NUMBER(S): [id number] ORDERING CLINICIAN: NAIMA WRIGHT TECHNIQUE: Vascular ultrasound [...] Simone Ramos 08/10/2023 3:07 PM Dictation workstation: [id number] [facility] Basic metabolic 2000 panelon 08-05-2023 Anion gap [Moles/Vol] 12 mmol/L 10 - 2 0 mmol/L [facility] Calcium [Mass/Vol] 9.6 mg/dL 8.6 - 10. 3 mg/dL [facility] Chloride [Moles/Vol] 102 mmol/L 98 - 10 7 mmol/L [facility] CO2 [Moles/Vol] 29 mmol/L 21 - 32 mmol/L [facility] Creatinine [Mass/Vol] 1.12 mg/dL 0.50 - 1.30 mg/dL [facility] GFR/1.73 sq M.predicted among non-blacks MDRD (S/P/Bld) [Vol rate/Area] 76 mL/min/{1.73_m2} - PINF [facility] Comment on above: Calculations of yang mated GFR are performed using the 2020 CKD-EPI Study Refit equation without the race variable for the IDMS-Traceable creatinine methods. https://jasn.asnjournals.org/content/early/ASN.2020 757332 Glucose [Mass/Vol] 95 mg/dL 74 - 99 mg/dL [facility] Interpretation and review of laboratory results Normal [facility] Potassium [Moles/Vol] 4.0 mmol/L 3.5 - 5.3 mmol/L [facility] Sodium [Moles/Vol] 139 mmol/L 136 - 145 mmol/L [facility] Urea nitrogen [Mass/Vol] 17 mg/dL 6 - 23 mg/dL [facility] Anion gap [Moles/Vol] 12 mmol/L Normal 10-20 [facility] Comment on above: Performed By: #### 2 4321-2 #### JAIMEE QURESHI (35790) [facility] ([facility]) [address] [place] [address] Calcium [Mass/Vol] 9.6 mg/dL Normal 8.6-10.3 [facility] Comment on above: Performed By: #### 2 4321-2 #### JAIMEE QURESHI (35101) [facility] [address] [place] [address] 98733 Chloride [Moles/Vol] 102 mmol/L Normal 98-107 [facility] Comment on above: Performed By: #### 2 4321-2 #### JAIMEE QURESHI (97843) [facility] [address] [place] [address] 01764 CO2 [Moles/Vol] 29 mmol/L Normal 21-32 [facility] Comment on above: Performed By: #### 2 4321-2 #### JAIMEE QURESHI (94381) [facility]) [address] [place] [address]3906 Creatinine [Mass/Vol] 1.12 mg/dL Normal 0.50-1.30 [facility] Comment on above: Performed By: #### 2 4321-2 #### JAIMEE QURESHI (38966) [facility]) [address] [place] [address] 47497 Glomerular filtration rate/1.73 sq M.predicted 76 mL/min/1.73m*2 Normal >60 [facility] Comment on above: Result Comment: Calc ulations of estimated GFR are performed using the 2020 CKD-EPI Study Refit equation without the race variable for the IDMS-Traceable creatinine methods. https://jasn.asnjournals.org/content/ASN 752642 Performed By: #### 2 4321-2 #### JAIMEE QURESHI (61266) [facility] [address] [place] [address]307 Glucose [Mass/Vol] 95 mg/dL Normal 74-99 [facility] Comment on above: Performed By: #### 2 4321-2 #### JAIMEE QURESHI (97836) [facility] [address] [place] [address]12 Potassium [Moles/Vol] 4.0 mmol/L Normal 3.5-5.3 [facility] Comment on above: Performed By: #### 2 4321-2 #### JAIMEE QURESHI (47390) [facility]) [address] [place] [address] 99822 Sodium [Moles/Vol] 139 mmol/L Normal 136-145 [facility] Comment on above: Performed By: #### 2 4321-2 #### JAIMEE QURESHI (64305) [facility] [address] [place] [address] 94503 Urea nitrogen [Mass/Vol] 17 mg/dL Normal 6-23 [facility] Comment on above: Performed By: #### 2 4321-2 #### JAIMEE QURESHI (10019) [facility] [address] [place] [address] 87108 CBC panel Auto (Bld)on 08-04 Erythrocyte distribution width (RBC) [Ratio] 13.0 % 11.5 - 14.5 % [facility] Hematocrit (Bld) [Volume fraction] 46.9 % 41.0 - 52.0 % [facility] Hemoglobin (Bld) [Mass/Vol] 16.1 g/dL 13.5 - 17.5 g/dL [facility] Interpretation and review of laboratory results Normal [facility] MCH (RBC) [Entitic mass] 31.5 pg 26.0 - 34.0 pg [facility] MCHC (RBC) [Mass/Vol] 34.3 g/dL 32.0 - 36.0 g/dL [facility] MCV (RBC) [Entitic vol] 92 fL 80 - 100 fL [facility] Nucleated RBC/100 WBC (Bld) [Ratio] 0.0 % [facility] Platelets (Bld) [#/Vol] 279 10*3/uL [facility] RBC (Bld) [#/Vol] 5.11 10*6/uL [facility] WBC (Bld) [#/Vol] 8.9 10*3/uL [facility] Erythrocyte distribution width (RBC) [Ratio] 13.0 % Normal 11.5-14.5 [facility] Comment on above: Performed By: #### 5 8410-2 #### JAIMEE QURESHI (60646) [facility] ([facility]) [address] [place] [address] 52527 Hematocrit (Bld) [Volume fraction] 46.9 % Normal 41.0-52.0 [facility] Comment on above: Performed By: #### 5 8410-2 #### JAIMEE QURESHI (52874) [facility]) [address] [place] [address] 42635 Hemoglobin (Bld) [Mass/Vol] 16.1 g/dL Normal 13.5-17.5 [facility] Comment on above: Performed By: #### 5 8410-2 #### JAIMEE QURESHI (08970) [facility]) [address] [place] [address] 44616 MCH (RBC) [Entitic mass] 31.5 pg Normal 26.0-34.0 [facility] Comment on above: Performed By: #### 5 8410-2 #### JAIMEE QURESHI (37332) [facility] ([facility]) [address] [place] [address] 59059 MCHC (RBC) [Mass/Vol] 34.3 g/dL Normal 32.0-36.0 [facility] Comment on above: Performed By: #### 5 8410-2 #### JAIMEE QURESHI (22293) [facility] ([facility]) [address] [place] [address] 35209 MCV (RBC) [Entitic vol] 92 fL Normal 80-100 [facility] Comment on above: Performed By: #### 5 8410-2 #### JAIMEE QURESHI (46292) [facility] ([facility]) [address] [place] [address] 92134 Nucleated RBC/100 WBC (Bld) [Ratio] 0.0 /100 WBCs Normal 0.0-0.0 [facility] Comment on above: Performed By: #### 5 8410-2 #### JAIMEE QURESHI (03866) [facility] ([facility]) [address] [place] [address] 11476 Platelets (Bld) [#/Vol] 279 x10*3/uL Normal 150-450 [facility] Comment on above: Performed By: #### 5 8410-2 #### JAIMEE QURESHI (64103) [facility] ([facility]) [address] [place] [address] 98497 RBC (Bld) [#/Vol] 5.11 x10*6/uL Normal 4.50-5.90 [facility] Comment on above: Performed By: #### 5 8410-2 #### JAIMEE QURESHI (70648) [facility] ([facility]) [address] [place] [address] 16992 WBC (Bld) [#/Vol] 8.9 x10*3/uL Normal 4.4-11.3 [facility] Comment on above: Performed By: #### 5 8410-2 #### JAIMEE QURESHI (13380) [facility] ([facility]) [address] [place] [address] 61273 Electrophysiology studyon [facility] Work Phone: PT and aPTT panel Coag (PPP) on 08-05-2023 aPTT Coag (PPP) [Time] 34 s [facility] INR Coag (PPP) [Relative time] 1.0 {INR} 0.9 - 1.1 [facility] Interpretation and review of laboratory results Normal [facility] PT Coag (PPP) [Time] 11.0 s [facility] The APTT is no longer used for monitoring Unfractionated Heparin Therapy. For monitoring Heparin Therapy, use the Heparin Assay. [facility] aPTT Coag (PPP) [Time] 34 s Normal 27-38 [facility] Comment on above: Order Comment: The A PTT is no longer used for monitoring Unfractionated Heparin Therapy. For monitoring Heparin Therapy, use the Heparin Assay. Performed By: #### 3 4529-8 #### JAIMEE QURESHI (99613) [facility] ([facility]) [address] [place] [address] 49215 INR Coag (PPP) [Relative time] 1.0 Normal 0.9-1.1 [facility] Comment on above: Order Comment: The A PTT is no longer used for monitoring Unfractionated Heparin Therapy. For monitoring Heparin Therapy, use the Heparin Assay. Performed By: #### 3 4529-8 #### JAIMEE QURESHI (00386) [facility] ([facility]) [address] [place] [address] 26732 PT Coag (PPP) [Time] 11.0 s Normal 9.8-12.8 [facility] Comment on above: Order Comment: The A PTT is no longer used for monitoring Unfractionated Heparin Therapy. For monitoring Heparin Therapy, use the Heparin Assay. Performed By: #### 3 4529-8 #### JAIMEE QURESHI (28642) [facility] ([facility]) [address] [place] [address] 39605 TRANSTHORACIC ECHO (TTE) MARIA TERESA Olmos 08-05-2023 TRANSTHORACIC ECHO (TTE) COMPLETE [address] [address] TRANSTHORACIC ECHOCARDIOGRAM REPORT Patient Name: LILIANA MICHAELS Reading Physician: [id number] Batsheva Morris MD, [facility] Study Date: 08/05/2023 Ordering Provider: [id number] ANA M ANGEL MRN/PID: [id number] Fellow: Nurse: Date of /Age: 10 1965 Medical Research Assistant: Eli Pisano RDGRACY Gender: M Additional Staff: Height: 162.56 cm Admit Date: Weight: 90.72 kg Admission Status: Outpatient BSA / BMI: 1.96 m2 / 34.33 Department Location: [facility]/m2 Echo Lab Blood Pressure: 128 /73 mmHg Study Type: TRANSTHORACIC ECHO (TTE) COMPLETE Diagnosis/ICD: Bradycardia, unspecified-R00.1 Indication: Abnormal EKG, Pre-EP CPT Codes: Echo Complete w Full Doppler-36146 Study Detail: The following Echo studies were [...] LA Area A2C: 18.9 cm2 LA [place] A4C: 5.8 cm LA [place] A2C: 5.5 cm LA Volume Index: 27.0 [...] 1.3 m/s (0.6-0.9m/s) PV Max P.6 mmHg [id number] Batsheva Morris MD, FACC Electronically signed on 08/05/2023 at 2:30:14 PM Final Normal [facility] US Heart TransthoracicOrdere d By: Batsheva Morris on 08-05-2023 Aortic Valve Area by Continuity of Peak Velocity 2.42 cm2 [facility] Work Phone: Aortic Valve Area by Continuity of VTI 2.62 cm2 [facility] Work Phone: AV mn grad 4.0 mmHg [facility] Work Phone: AV pk grad 8.2 mmHg [facility] Work Phone: AV pk abiodun 1.43 m/s [facility] Work Phone: LA vol index A/L 29.3 ml/m2 [facility] Work Phone: LV A4C EF 62.4 [facility] Work Phone: LV biplane EF 60 % [facility] Work Phone: LVIDd 5.28 cm [facility] Work Phone: LVOT diam 2.00 cm [facility] Work Phone: MV avg E/e' ratio 7.78 [facility] Work Phone: MV E/A ratio 0.88 [facility] Work Phone: RV free wall pk S' 15.40 cm/s [facility] Work Phone: RVSP 23.4 mmHg [facility] Work Phone: Tricuspid annular plane systolic excursion 3.6 cm [facility] Work Phone: [facility] Work Phone: US Heart Transthoracicon [place] [id number] TRANSTHORACIC ECHOCARDIOGRAM REPORT Patient Name: LILIANA Quiñones Physician: [id number] Morris MD, [facility] Study Date: 08/05/2023 Ordering Provider: [id number] ANA M ANGEL MRN/PID: [id number] Fellow: Nurse: Date of /Age: 10 1965 / 58 Medical Research Assistant: Eli Pisano RDCS Gender: M Additional Staff: Height: 162.56 cm Admit Date: Weight: 90.72 kg Admission Status: Outpatient BSA / BMI: 1.96 m2 / 34.33 Department Location: [facility] kg/m2 Echo Lab Blood Pressure: 128 /73 mmHg Study Type: TRANSTHORACIC ECHO (TTE) COMPLETE Diagnosis/ICD: Bradycardia, unspecified-R00.1 Indication: Abnormal EKG, Pre-EP CPT Codes: Echo Complete w Full Doppler-26924 Study Detail: The following Echo studies were [...] LA Area A2C: 18.9 cm2 LA [place] A4C: 5.8 cm LA [place] A2C: 5.5 cm LA Volume Index: 27.0 [...] not included)... Batsheva Alexander MD - 08/05/2023 [place] [address] TRANSTHORACIC ECHOCARDIOGRAM REPORT Patient Name: LILIANA MICHAELS Reading Physician: [id number] Batsheva Morris MD, [facility] Study Date: 08/05/2023 Ordering Provider: [id number] ANA M Echo RITA MRN/PID: [id number] Fellow: Nurse: Date of /Age: 10 1965 / 58 Medical Research Assistant: Eli Pisano RDGRACY Gender: M Additional Staff: Height: 162.56 cm Admit Date: Weight: 90.72 kg Admission Status: Outpatient BSA / BMI: 1.96 m2 / 34.33 Department Location: [place] [address] Echo Lab Blood Pressure: 128 /73 mmHg Study Type: TRANSTHORACIC ECHO (TTE) COMPLETE Diagnosis/ICD: Bradycardia, unspecified-R00.1 Indication: Abnormal EKG, Pre-EP CPT Codes: Echo Complete w Full Doppler-79832 Study Detail: The following Echo studies were [...] LA Area A2C: 18.9 cm2 [place] A4C: 5.8 cm LA [place] A2C: 5.5 cm LA Volume Index: 27.0 [...] 1.3 m/s (0.6-0.9m/s) PV Max P.6 mmHg [id number] Batsheva Morris MD, [facility] Electronically signed on 08/05/2023 at 2:30:14 PM Final [facility] Work Phone: XR CHEST 1 VIEWon 08-05-2023 XR CHEST 1 VIEW Interpreted By: Salvatore Clark, STUDY: XR CHEST 1 VIEW INDICATION: Signs/Symptoms:post implant. COMPARISON: None ACCESSION NUMBER(S): [id number] ORDERING CLINICIAN: ANA M KUMARI FINDINGS: No consolidation, effusion, edema, or pneumothorax. Pacemaker placed without pneumothorax. Position satisfactory. IMPRESSION: Status post pacemaker placement. Signed by: Salvatore Clark 08/05/2023 6:10 PM Dictation workstation: [id number] [facility] Comment on above: Order Comment: Wet r ead. XR Chest Single viewon 08-04 Status post pacemaker placement. Signed by: Salvatore Clark 08/05/2023 6:10 PM Dictation workstation: [id number] MMODAL Interpreted By: Salvatore Clark, STUDY: XR CHEST 1 VIEW INDICATION: Signs/Symptoms:post implant. COMPARISON: None ACCESSION NUMBER(S): [id number] ORDERING CLINICIAN: ANA M KUMARI FINDINGS: No consolidation, effusion, edema, or pneumothorax. Pacemaker placed without pneumothorax. Position satisfactory. [facility] MMODAL Salvatore Clark MD - 08/05/2023 Interpreted By: Salvatore Clark, STUDY: XR CHEST 1 VIEW INDICATION: Signs/Symptoms:post implant. COMPARISON: None ACCESSION NUMBER(S): [id number] ORDERING CLINICIAN: ANA M KUMARI FINDINGS: No consolidation, effusion, edema, or pneumothorax. Pacemaker placed without pneumothorax. Position satisfactory. IMPRESSION: Status post pacemaker placement. Signed by: Salvatore Clark 08/05/2023 6:10 PM Dictation workstation: [id number] [facility] Work Phone: Radiology Study observation (narrative) [facility] Work Phone: XR Chest Single viewOrdered By: Salvatore Clark on 08-05-2023 [facility] Work Phone: ECG 12 lead (Clinic Performe d)on 07-22-2023 EKG shows marked sinus bradycardia rate of 41 bpm QRS ration 100 ms QT corrected he had a 91 ms. Rhythm strip shows the same pattern. [facility] Work Phone: CT LUNG CANCER [...] by: BATSHEVA ALVARADO Date: 2022-07-15 12:10 Normal [facility] Office Visit (Cardiology)on 07-14-2022 Follow-up visit [...] we can help. You may also call [phone]-TKUNOmmvenNOW for free resources and assistance.; Status:Complete - Retrospective Authorization; Done: [id number] Patient Instructions Please bring all medicines, vitamins, [...] ekg REtrieve heart cath Chief Complaint LILIANA MICHAESL is being seen for a month follow-up [...] ischemic evaluation. He underwent cardiac catheterization in [place] which showed no significant obstructive disease 3. [...] BY MOUTH FOUR TIMES A DAY NEEDED Spmpcw2n at bedtime Singulair 10 MG Oral TabletTAKE [...] Recorded: 14Jul2022 10:57AM Heart Rate34, L Radial Jpmomxiy950, LUE, Sitting Skzfaiulu09, LUE, Sitting Height5 ft 4 in Kxscnh987 lb BMI Wvhbgclrie74.96 kg/m2 BSA Calculated1.92 Tobacco Usea) Yes Patient encouraged to st (more content not included)... Normal [employer] Tobacco Screening.on 023 Adult depression screening assessment No [facility] [employer] (1BO[employer]) DO Work Phone: Fall risk assessment a) No falls within the last year [facility] [employer] (1[employer]) DO Work Phone: Tobacco use status CPHS a) Yes M [facility] [employer] (1BO[employer]) DO Work Phone: Tobacco Screening. Yes [facility] [employer] (1[employer]) DO Work Phone: CT ABD/PELV W CONon [...] by: FLEX JACOBS Date: 2022-06-11 10:06 Normal [facility] CBC AUTO DIFFon 05-07-2022 BASO # 0.1 103/ul Normal 0.0-0.1 [facility] Comment on above: Performed By: #### C BC #### [facility] [address] [place] [address] Dr. Britt Mendoza Basophils/100 WBC (Bld) 1.6 % Normal 0.2-2.0 [facility] Comment on above: Performed By: #### C BC #### [facility] [address] [place], [place] [address] Dr. Britt Mendoza EO # 0.2 103/ul Normal 0.0-0.7 [facility] Comment on above: Performed By: #### C BC #### [facility] [address] [place] [address] [address] Britt Mendoza Eosinophils/100 WBC (Bld) 3.0 % Normal 0.9-7.0 [facility] Comment on above: Performed By: #### C BC #### [facility] [address] [place] [address] Dr. Britt Mendoza Erythrocyte distribution width (RBC) [Ratio] 12.4 % Normal 11.0-15.0 [facility] Comment on above: Performed By: #### C BC #### [facility] [address] [place] [address] Dr. Britt Mendoza Hematocrit (Bld) [Volume fraction] 43.2 % Normal 42.0-54.0 [facility] Comment on above: Performed By: #### C BC #### [facility] [address] [place] [address] Dr. Britt Mendoza Hemoglobin (Bld) [Mass/Vol] 14.7 g/dL Normal 14.0-18.0 [facility] Comment on above: Performed By: #### C BC #### [facility] [address] [place] [address] Dr. Britt Mendoza IG # 0.11 10e3/ul Critically high 0.00-0.03 [facility] Comment on above: Performed By: #### C BC #### [facility] [address] [place] [address] Dr. Britt Mendoza IG % 1.4 % Critically high 0.0-0.5 [facility] Comment on above: Performed By: #### C BC #### [facility] [address] [place] [address] Dr. Britt Mendoza LYMPH # 1.7 103/ul Normal 1.2-3.8 [facility] Comment on above: Performed By: #### C BC #### [facility] [address] [place] [address] Dr. Britt Mendoza Lymphocytes/100 WBC (Bld) 21.6 % Normal 20.5-60.0 [facility] Comment on above: Performed By: #### C BC #### [facility] [address] [place] [address] Dr. Britt Mendoza MANUAL DIFF REQ NO Normal [facility] Comment on above: Performed By: #### C BC #### [facility] [address] [place] [address] Dr. Britt Mendoza MCH (RBC) [Entitic mass] 31.2 pg Normal 25.9-34.0 [facility] Comment on above: Performed By: #### C BC #### [facility] [address] [place] [address] Dr. Britt Mendoza MCHC (RBC) [Mass/Vol] 34.0 g/dL Normal 29.9-35.2 [facility] Comment on above: Performed By: #### C BC #### [facility] [address] [place] [address] Dr. Britt Mendoza MCV (RBC) [Entitic vol] 91.7 fL Normal 80.0-94.0 [facility] Comment on above: Performed By: #### C BC #### [facility] [address] [place] [address] Dr. Britt Mendoza MONO # 0.5 103/ul Normal 0.3-0.8 [facility] Comment on above: Performed By: #### C BC #### [facility] [address] [place] [address] Dr. Britt Mendoza Monocytes/100 WBC (Bld) 6.8 % Normal 1.7-12.0 [facility] Comment on above: Performed By: #### C BC #### [facility] [address] [place] [address] Dr. Britt Mendoza NEUT # 5.0 103/ul Normal 1.4-6.5 [facility] Comment on above: Performed By: #### C BC #### [facility] [address] [place] [address] Dr. Britt Mendoza Neutrophils/100 WBC (Bld) 65.6 % Normal 43.0-75.0 [facility] Comment on above: Performed By: #### C BC #### [facility] [address] [place] [address] Dr. Britt Mendoza Platelet mean volume (Bld) [Entitic vol] 9.7 fL Normal 9.5-13.5 [facility] Comment on above: Performed By: #### C BC #### [facility] [address] [place] [address] [address] Britt Mendoza PLT 244 103/ul Normal 150-450 [facility] Comment on above: Performed By: #### C BC #### [facility] [address] [place] [address] [address] Britt Mendoza RBC 4.71 106/ul Normal 4.70-6.10 [facility] Comment on above: Performed By: #### C BC #### [facility] [address] [place] [address] Dr. Britt Mendoza WBC 7.6 103/ul Normal 4.0-11.0 [facility] Comment on above: Performed By: #### C BC #### [facility] [address] [place] [address] Dr. Britt Mendoza GLYCOHEMOGLOBIN A1Con 2021 ADA RECOMMENDATION SEE BELOW Normal [facility] Comment on above: Result Comment: ADA RECOMMENDED LIMIT 4.0 - 6.0 ADA THERAPEUTIC TARGET < 7.0 ACTION SUGGESTED > 7.0 Performed By: #### A 1C ####[facility] [address] [place] [address]Dr. Britt Mendoza Glucose [Mass/Vol] 117 mg/dL Normal [facility] Comment on above: Performed By: #### A 1C ####[facility] [address] [place] [address]Dr. Britt Mendoza HbA1c (Bld) [Mass fraction] 5.7 % Normal 4.5-6.2 [facility] Comment on above: Performed By: #### A 1C ####[facility] [address] [place] [address]Dr. Britt Mendoza LIPID PROFILEon 05-07-2022 CHOL-HDL RATIO NORM SEE BELOW Normal [facility] Comment on above: Result Comment: 3.3 - 4.4 LOW RISK 4.4 - 7.1 AVERAGE RISK 7.1 - 11.0 MODERATE RISK >11.0 HIGH RISK Performed By: #### B MP, LIVER, LIPID, TSH ####[facility] [address] [place] [address]Dr. Britt Mendoza Cholesterol [Mass/Vol] 235 mg/dL Critically high <=200 [facility] Comment on above: Performed By: #### B MP, LIVER, LIPID, TSH ####[facility] [address] [place] [address]Dr. Britt Mendoza Cholesterol in HDL [Mass/Vol] 40 mg/dL Normal 40-60 [facility] Comment on above: Performed By: #### B MP, LIVER, LIPID, TSH ####[facility] [address] [place] [address]Dr. Britt Mendoza Cholesterol in LDL [Mass/Vol] 156.8 mg/dL Normal [facility] Comment on above: Performed By: #### B MP, LIVER, LIPID, TSH ####[facility] [address] [place] [address]Dr. Britt Mendoza Cholesterol.total/Viola sterol in HDL [Mass ratio] 5.9 {ratio} Normal [facility] Comment on above: Performed By: #### B MP, LIVER, LIPID, TSH ####[facility] [address] [place] [address]Dr. Anjalilan Mendoza HDL NORMAL > or = 60 mg/dl - LOW CARDIOVASCULAR RISK <40 mg/dl - HIGH CARDIOVASCULAR RISK Normal [facility] Comment on above: Performed By: #### B MP, LIVER, LIPID, TSH ####[facility] [address] [place] [id number]. Anjalilan Mendoza LDL CALC NORMAL SEE BELOW Normal [facility] Comment on above: Result Comment: <100 mg/dl OPTIMAL 100 - 129 mg/dl NEAR OR ABOVE OPTIMAL 130 - 159 mg/dl BORDERLINE HIGH 160 - 189 mg/dl HIGH >190 mg/dl VERY HIGH Performed By: #### B MP, LIVER, LIPID, TSH ####[facility] [address] [place] [address]Dr. Anjalilan Mendoza Triglyceride [Mass/Vol] 191 mg/dL Critically high <=150 [facility] Comment on above: Performed By: #### B MP, LIVER, LIPID, TSH ####[facility] [address] [place] [address]Dr. Britt Mendoza VLDL CALC 38.2 mg/dL Normal [facility] Comment on above: Performed By: #### B MP, LIVER, LIPID, TSH ####[facility] [address] [place] [address]Dr. Britt Mendoza LIVER PROFILEon 05-07-2022 Albumin [Mass/Vol] 3.6 g/dL Normal 3.4-5.0 [facility] Comment on above: Performed By: #### B MP, LIVER, LIPID, TSH ####[facility] [address] [place] [address]Dr. Britt Mendoza Albumin/Globulin [Mass ratio] 1.1 {ratio} Normal [facility] Comment on above: Performed By: #### B MP, LIVER, LIPID, TSH ####[facility] [address] [place] [address]Dr. Britt Mendoza ALP [Catalytic activity/Vol] 84 U/L Normal 46-116 [facility] Comment on above: Performed By: #### B MP, LIVER, LIPID, TSH ####[facility] [address] [place] [address]Dr. Britt Mendoza ALT [Catalytic activity/Vol] 34 U/L Normal 16-63 [facility] Comment on above: Performed By: #### B MP, LIVER, LIPID, TSH ####[facility] [address] [place] [address]Dr. Britt Mendoza AST [Catalytic activity/Vol] 21 U/L Normal 15-37 [facility] Comment on above: Performed By: #### B MP, LIVER, LIPID, TSH ####[facility] [address] [place] [address]Dr. Britt Mendoza BILI, CONJUGATED 0.1 mg/dL Normal 0.0-0.2 [facility] Comment on above: Performed By: #### B MP, LIVER, LIPID, TSH ####[facility] [address] [place] [address]Dr. Britt Mendoza Bilirubin [Mass/Vol] 0.4 mg/dL Normal 0.2-1.0 [facility] Comment on above: Performed By: #### B MP, LIVER, LIPID, TSH ####[facility] [address] [place] [address]Dr. Britt Mendoza Globulin (S) [Mass/Vol] 3.4 g/dL Normal [facility] Comment on above: Performed By: #### B MP, LIVER, LIPID, TSH ####[facility] [address] [place] [address]Dr. Britt Mendoza Protein [Mass/Vol] 7.0 g/dL Normal 6.4-8.2 [facility] Comment on above: Performed By: #### B MP, LIVER, LIPID, TSH ####[facility] [address] [place] [address]Dr. Britt Mendoza PROF CHEM 8 (BAS METB)on Anion gap [Moles/Vol] 13.8 mmol/L Normal [facility] Comment on above: Result Comment: Prev iously reported as: -2.3 On 05/07/2022 13:50 By DM9 Performed By: #### B MP, LIVER, LIPID, TSH #### [facility] [address] [place] [address] [address] Britt Mendoza Calcium [Mass/Vol] 9.2 mg/dL Normal 8.5-10.1 [facility] Comment on above: Performed By: #### B MP, LIVER, LIPID, TSH #### [facility] [address] [place] [address] [address] Britt eMndoza Chloride [Moles/Vol] 99 mmol/L Normal 98-107 [facility] Comment on above: Result Comment: Prev iously reported as: 106 On 05/07/2022 13:50 By DM9 Performed By: #### B MP, LIVER, LIPID, TSH #### [facility] [address] [place] [address] [address] Britt Mendoza CO2 [Moles/Vol] 27.3 mmol/L Normal 21.0-32.0 [facility] Comment on above: Result Comment: Prev iously reported as: 29.2 On 05/07/2022 13:50 By DM9 Performed By: #### B MP, LIVER, LIPID, TSH #### [facility] [address] [place] [address] [address] Britt Mendoza Creatinine [Mass/Vol] 1.12 mg/dL Normal 0.70-1.30 [facility] Comment on above: Performed By: #### B MP, LIVER, LIPID, TSH #### [facility] [address] [place] [address] [address] Britt Mendoza EGFR-AF P[place]CAIRN ISLANDER >60 Normal >=60 [facility] Comment on above: Performed By: #### B MP, LIVER, LIPID, TSH #### [facility] [address] [place] [address] Dr. Britt Mendoza EGFR-NON AF [place] ISLANDER >60 Normal >=60 [facility] Comment on above: Performed By: #### B MP, LIVER, LIPID, TSH #### [facility] [address] [place] [address] [address] Britt Mendoza Glucose [Mass/Vol] 108 mg/dL Critically high 74-106 [facility] Comment on above: Performed By: #### B MP, LIVER, LIPID, TSH #### [facility] [address] [place] [address] Dr. Britt Mendoza Potassium [Moles/Vol] 4.1 mmol/L Normal 3.5-5.1 [facility] Comment on above: Result Comment: Prev iously reported as: 3.9 On 05/07/2022 13:50 By DM9 Performed By: #### B MP, LIVER, LIPID, TSH #### [facility] [address] [place] [address] Dr. Britt Mendoza Sodium [Moles/Vol] 136 mmol/L Normal 136-145 [facility] Comment on above: Result Comment: Prev iously reported as: 129 On 05/07/2022 13:50 By DM9 Performed By: #### B MP, LIVER, LIPID, TSH #### [facility] [address] [place], [place] [address] Dr. Britt Mendoza Urea nitrogen [Mass/Vol] 26.0 mg/dL Critically high 7.0-18.0 [facility] Comment on above: Performed By: #### B MP, LIVER, LIPID, TSH #### [facility] [address] [place], [place] [address] Dr. Britt Mendoza Urea nitrogen/Creatinine [Mass ratio] 23.2 mg/mg Normal [facility] Comment on above: Performed By: #### B MP, LIVER, LIPID, TSH #### [facility] [address] [place], [place] [address] Dr. Britt Mendoza TSHon 05-07-2022 TSH 0.828 uIU/mL Normal 0.358-3.740 [facility] Comment on above: Performed By: #### B MP, LIVER, LIPID, TSH ####[facility] [address] [place], [place] [address]NqDr. Britt Mendoza VITAMIN D 25 OHon 05-07-2022 VIT D 25-OH 45.6 ng/mL Normal [facility] Comment on above: Performed By: #### V BRENDAN PSASC #### [facility] [address] [place] [address] [address] Britt Mendoza VIT D RANGES SEE BELOW Normal [facility] Comment on above: Result Comment: <20 ng/mL Vit D deficient 20 - <30 ng/mL Vit D insufficient 30 - 100 ng/mL Vit D sufficient >100 ng/mL Potential Toxicity Performed By: #### V BRENDAN, PSASC #### [facility] [address] [id number] Britt Mendoza Covid-19 PCR (CVDTB)on SARS-CoV-2 (COVID-19) RNA KATT+probe Ql (Unsp spec) Detected Critically abnormal NOT DETECTED [facility] Comment on above: Result Comment: This test is not yet approved or cleared by the [place] FDA. When there are no FDA-approved or cleared tests available, and other criteria are met, FDA can make tests available under an emergency access mechanism called an Emergency Use Authorization (EUA). The EUA for this test is supported by the [place] of Health and Human Service's declaration that [...] longer be used). Performed By: #### C [facility] ####[facility] [place] [id number]. Britt Mendoza Cardiac Stress Test 2021 Cardiac Stress Test [address], [place] [address] Exercise Stress Test Patient Name: LILIANA MICHAELS JRAtiya Ordering Physician: [id number] Ty MD Study Date: 02/15/2022 Reading Physician: [id number] Ty MD MRN/PID: [id number] Supervising Physician: [id number] Rivera MD Accession/Order#: [id number] Referring Physician: VALENTINO TY Date of : 1965 PCP: Ishmael Simon Gender: M Fellow: Height: 162.56 cm Nurse: Yunior Bhatti RN Weight: 81.65 kg Medical Research Assistant: NA BSA: 1.87 m2 Technologist: BMI: 30.90 kg/m2 Additional Staff: Age: 56 years cc report to: Patient Location: cc report to: [id number] Valentino Ty MD Study Type: Cardiac Stress Test Diagnosis/ICD: R94.31-Abnormal electrocardiogram [ECG] [EKG]; R00.1-Bradycardia, unspecified; R06.00-Dyspnea, unspecified Indication: Dyspnea Procedure/CPT: Stress Test Interpretation-[id number] ; Stress Test Supervision-[id number] Falls Risk: Low: Patient has low risk [...] 7. An element of chronotropic incompetency noted. [id number] Valentino Ty MD Electronically signed on 02/16/2022 at 2:52:20 PM Final Normal [facility] Cardiac Stress Test Please click on the link to view the study images [facility] Work Phone: Cardiac Stress Test MP-No [facility] [place] [address] DO Work Phone: Office Visit [...] Status:Hold For - Scheduling,Retrospec tive Authorization; Requested for:[id number]; Class 1 obesity with body mass index (BMI) of 30.0 to 30.9 in adult Healthy Weight Tips; Status:Complete - Retrospective Authorization; Done: [id number] Some eating tips that can help you lose weight.; Status:Complete - Retrospective Authorization; Done: [id number] Sinus bradycardia You need to stop smoking. Though it is not easy, more than half of all adult smokers have quit. We encourage you to write down all the reasons you should quit smoking and set a quit date for yourself. Ask us how we can help. You may also call 2-154-GGRKOmmvenNOW for free resources and assistance.; Status:Complete - Retrospective Authorization; Done: [id number] SocHx: Current smoker Continue with our present treatment plan.; Status:Complete - Retrospective Authorization; Done: 25Oei2243 Tobacco Use Screening; Status:Complete; Done: 60Ymn1012 Patient Instructions Please bring all medicines, vitamins, [...] This led to a cardiac evaluation in [place] and its not clear to me whether [...] Oral Capsule Delayed ReleaseTAKE 1 CAPSULE Daily Vtktkn1p at bedtime Sin (more content not included)... Normal [employer] Tobacco Screening.on 022 Adult depression screening assessment No [facility] [address] DO Work Phone: Fall risk assessment a) No falls within the last year [facility] [address] DO Work Phone: Tobacco use status CPHS a) Yes M [facility] [address] DO Work Phone: Tobacco Screening. Yes MP-Nor [facility] 600 DO Work Phone: Covid-19 PCR (CVDTB)on SARS-CoV-2 (COVID-19) RNA KATT+probe Ql (Unsp spec) Not detected Normal NOT DETECTED [facility] Comment on above: Result Comment: This test is not yet approved or cleared by the [place] FDA. When there are no FDA-approved or cleared tests available, and other criteria are met, FDA can make tests available under an emergency access mechanism called an Emergency Use Authorization (EUA). The EUA for this test is supported by the Production [employer] Wel[place] of Health and Human Service's (HHS's) declaration [...] consistent with SARS-CoV-2. Performed By: #### C [facility] #### [facility] [address] [place] [address] Dr. Britt Mendoza Covid-19 PCR (CVDTB)on 11-07 SARS-CoV-2 (COVID-19) RNA KATT+probe Ql (Unsp spec) Not detected Normal NOT DETECTED [facility] Comment on above: Result Comment: This test is not yet approved or cleared by the [place] FDA. When there are no FDA-approved or cleared tests available, and other criteria are met, FDA can make tests available under an emergency access mechanism called an Emergency Use Authorization (EUA). The EUA for this test is supported by the Production Line Wel[employer] of Health and Human Service's (HHS's) declaration [...] consistent with SARS-CoV-2. Performed By: #### C [facility] ####[facility] [address] [place], [place] [address]QuAtiya Mendoza XR CHEST 2 Von 10-01-2021 XR [...] by: FLEX JACOBS Date: 2021-10-01 09:30 Normal [facility] Ambulatory Clinical Summaryo n 03-05-2021 Ambulatory Clinical Summary {[id number]}CD:[id number] Normal [facility] Historical Records Officeon 03-05-2021 Historical Records Office [id number] #[id number]:127 Normal [facility] Patient Educationon 03-05-20 Patient Education Urology [...] these instructions at home: Medicines ? Take iosn-cbi-vfzifsy and prescription medicines only as told by [...] of your (more content not included)... Normal [facility] Urology Office/Clinic Noteon 03-05-2021 Urology Office/Clinic [...] order. Ordered: Office Visit Level 4 Est 17792 2. Hypogonadism male (E29.1: Testicular hypofunction) noted [...] time. Ordered: Office Visit Level 4 Est 35642 3. BPH with urinary obstruction (N40.1: Benign prostatic hyperplasia with lower urinary tract symptoms) s/p Urolift September 2018. Pt is currently taking no bladder/prostate medication and is mostly satisfied with overall symptom control. has nocturia but attributes this to diuretics. Pt prefers to continue with no changes at this time. PCP checking PSAs per pt. Ordered: Office Visit Level 4 Est 64277 Orders: Urnls Dip Stick Auto w/o Microscopy POC 82922 offered f/u 1 yr but pt prefers PRN. Total time spent reviewing previous notes/results/assistant spa manager al documents, preparing the chart, conducting the encounter with the patient and family, ordering tests/medications, and documenting the encounter was 30 minutes. Follow-up With When Contact Information SIMONE JEAN BAPTISTE DC [address] [place] [address]- Additional Instructions: Patient Education Erectile Dysfunction Problem [...] inhalation powde (more content not included)... Normal [facility] Comment on above: Result Comment: Elec tronically Signed By: DANIEL MARTINEZ, TOMEKA Priest\.br\Date and Time Signed: 03/05/21 12:24 EDT MRI PELVIS WO CONTRASTon MRI PELVIS WO CONTRAST [facility] Department of Radiology [address] [place] [id number] Patient Name: LILIANA MICHAELS : 1965 Sex: M Age: Race: White Pt. Location: 18 Patient Status: Ordered Date: 09/10/2020 3:35:00 PM Completed Date: 10/03/2020 08:34 AM Requesting Provider: SIMONE RUIZ Attending Provider: Report Copy To: Signs & Symptoms: R10.2 Pelvic and perineal pain I10 History: [place], Right FOREIGN per clinic will fax [facility] auth# [id number] 09/16/20-10/17/20 cpt code 96035 *mla Comments: Right groin to r/o an [...] spine. Electronically signed: Dinh Miller. Transcribed by: [email or web address], User Resident: Electronically Signed by: DINH MILLER @ 10/03/2020 09:[address] [facility] Comment on above: Order Comment: Right groin to r/o an adductor tear; iliopsoas bursitis or injury Operative Reporton Operative Report MR#: [id number] [facility] Pt. Name: Liliana Michaels Room #: [...] Ruiz MD Date Trans: 09/10/2020 11:40 P/mmo DN_[id number] cc: Ishmael Simon M.D. [address] [place] [address] [facility] Coding Summary.on 09-01-2020 Coding Summary. CD:[id number] RDvA79neTTetI7UC7vKJ Q5NMVKLQIYKJN8WGW7ig MU7EQsaR5JnxjVf NzfnoARtLQ34QGw1XRA1 sOegWCdblX9ksTIxP2w2 NmFvSG83gM81AWwvRAPm UxX8UtVlzsieiVKd O7roWgIbtCDrBgv+PHRh YmxlIHdpZHRoPScxMDAl UdBwtVtyWV6bLd5rTOUr LWNvbGxhcHNlOiBj g0rkXXTvHEpdCO4foPbw C4BlfTH0CRHdb9d7Jy48 dHI+BOOwZNO7bOgzLJgu w833HkUzh3ykOHR5 rNNlRMntKTR1C81xe7I2 ZIQaJLHoNUT2hFW1fB6q aOubutxnF3DapPVmOlR6 FOR4vNIflF0mpGzw khdxgG8tFpf+I65JOA8K LVRXUL2XIgp9I8UaNhqs dHI+PH13PLGvUT24eSDn fBYhl6zstCo3RgVg EMSjCMI5pCmeTBbkx7Ww LPUrX72pnILcw4G1AQOp xBochMDhAbKtgNW6eP7x XYntnbyux1fezldt Kxqyb5ccnz12qO38V69o GMmcYVLxBOY0MAEfQMIc tSkftw6ygQ9tYm4+IDxj g7rbe0bimDl3LfTe PMXebnGboGflMJB2j8Hq Rq12Q3ManTuox2HkRtc2 co20oAMpv4W6pSE0RHbx MMMssR2mFPukPbP7 FFAbSwJhmJ50nXZcINyi Nw2saJaveLwhCW3sFLMw bxczGQAtwE6iKULsiZMa gIfiNA6kLBXdkisv s379MeAxVCA1NEYboHMa K4BeaV1sLcFnMJSsHZLh J5VhyUGjKWrhF825ZDdf WdB0SUVnrxAhA5Cu NMXylWixSiG5k0U5Hx1P r1EizoiaZGH5YZafLKS0 UpB3QpSiMoK8R4BcBhq3 XXIieVkoBG8wQ8Ce PYKwtmelhlfurMC9TONf XRFrwN26nJNvHPipMq5z j4C4c004JVXrUWHkeT40 Po5dkFrxCIIjcXED yE0njcitv7dqkxsvEzUl YVQeWGd4XSk6BXParEwy KbCfYOY5TbD2DDV1oLUe xJ6sfWkrgvamnS7w Oyc+C97fcQ1sOJO2TPP9 uhjiESOtzrDhBV28AQ31 J1HeOknhcNDxmIW+PGRp bdCvdGqtWM9dDzDx m3kpl0FcPKkrV1XcTXFv YAxdXna4FUQjNAZ1pYO8 aW1cASGaZGnyi7D8pMD3 B7JudoSjcc2lv7km RODaQLxvQ14soEUnz2G8 LXBkuDJ0JTUhoRhrJbRo tX29Syw+UFYqpTftv3Aj Drvlm6bnz7wyjPs1 IjMwJSIgdmFsaWduPSJ0 o6XfFe58Y43vPBmhCYMc MPRsZKEsXGEhzPuibp2o sR4aRo3+PGNvbCB3 bYC5sN5tKOScUnH7VSzr B000YsRxnRSyCrjmv7ze z7wwtDe0IbFlYRBskvCl oUcqMIM4j3NfSl81 Q78pNKlzMFHzBHAdZKAi LPJaaVscym1jnQ2wBb4+ IM5xw6axue15cV08qHG+ HFXsDNR0sVdvLVvg CKYbdX7zSGvpMnT0AQNr AyOfmB64sNScIQieBj8r eJpdxNcoAW6xTHXqvgta j884PkTms0pzJYBn iTZqQNcmROO8Y01de8H6 RDSeCHOqOGI1vAN6bA8q bGlnbjogbGVmdDsgdmVy kMlnQYqdHGgoX123 IHRvcDsnPlBhdGllbnQg UnOnAJm7U7IkNxx2JBMt oHloPU8ngSZdDTerEm3j sWxwpPmwDR2dLAVs qnfsi717FbIaw1prHJOb sMEsUCpeULX9O78kg1R8 IMAvGKNlANV7hAB6tD3c bGlnbjogbGVmdDsg rkIpxKokPBnwTMfuQ777 IHRvcDsnPkJpcnRoIERh eKX0NR08YJ79wEGml5W7 kNP7O2SwWBUslaqz xlruoZI1UMTfPMGjjP66 Gn6geUpaJd3sAKOkSAC8 YZJisBDvU1WsxE2mQqXl PUUfIMYfV6HanXLj SHhlQ540PMmiNjF9VBJy aoBxQ0IgFMGzzAhdDaJ6 n8M5Ld0OT8S8BC95RD45 jLMxh7H7bEM0D3Kh RBPkktzenaltfZA2SSEi JTBuzV72Wl9voEmbKj7z QABrFVD2AGLxkYVqI9Pf qU3iUuNgHMZiATJs H2XciHQqOAynC743CIer QaR0TLKtwgMbN9JoUUSv hKktJcK1d8Y4We5LWXw7 YI51KI11nAMxc9S6 mEX8Q1QoFXZjmeyomyan fUT2SOKpSHBavW52Pa1r bOifWw0oQMFzLHI5PJEq vGBsZ0OywV5tHgYx MQAlXPBrV2UwnTNgZEwq N546HZapSaZ2FBJiszEl T4WcHGDolXseOtB8p2Z3 Us1UKTTvXE40JZW5 mWW1YI41OF94R6CjHwue dGFibGU+PHRhYmxlIHdp ZHRoPScxMDAlJyBzdHls UB6aEv1uBWEmSVFe nLvllEKaUxXen7bxKOLa YGkdVE9ywWfaM6ApgPY4 MDBud7w9Qu33S08mJ5Sg dXA+NPKfjGK4iOG6 wC4mVtDoHzF2ICwfE349 IxTxdJXjDzfut0shr3wa xEn5DlO7DBYvrvNlgRel XTE6q5RpKv85J39j IHdpZHRoPSIxNSUiIHZh oDsrji8ztU3rRt7+PGNv qZQ6vEK1xW2fJiSrRyM7 OKkdA541IeWqbVLk Pwdwu5jws1mafSd2OnQa ZAYlveIwjMevGWY4r3Tc Ax55L7MjhVgfd0ZqDbi3 bu82sTJum6K7jAK4 V0EeNDWbielyaJIhaIfm ME9mORIjhjovBWJijG9f MRLvI8i8TuRbJuT1SXop H6MovqU7CZResQQh IPfwJKP7A67fg3Z5OUBi VBOpXKA1yBG9tB3weMah bjogbGVmdDsgdmVydGlj YSdlJHikU956PFJg cTqsHQDlqI1rFZYfvGTi xTckPG2nCFRsftuaYfzM ZC9SDamcBfEXORjvPQoz dGQ+YQGmMVD6eZnl YRewCIKofZ3mLHShH2t0 VtTlTfX9SEsdY1YxOKGk hoazFd66xZ4yAsMkLkJ3 SYpqQ0MdrgE0TVZp yFTcGRmlEVT3S87oj1S8 WBGsFHMoGDQ1lFC0qT1v bGlnbjogbGVmdDsgdmVy bVrnYUwmWQkwK518 RJOjlBqiWzFdLgY6JyB6 KmA7R7LuUwf3TCPjjSws DD1dmPFiLRlkWv0tnXcl bDigRT0zFUVhkvjz ZAWvlQ2mQSYovZRswWos LD9hUQZpxlvee056PbAq MKA1DYIrnNQfU9VkwJ5n TjPwTKEkVJKyP9Fp fRVfSPxrT861XRhaSfE5 CMLnryCqM1InMPTehPgi YcW0i5U1Vk57YoBNKVDy czwvdGQ+PHRkIHN0 jGqrYWzwRGAkuO9kVAHx X0u9PnHgYlA0ASipD6Ks BEDuedwbLz48oB1oSoCx DeO9NNknK2QaduC7 PQKqbAMeCOenVOU1A08o t6A8PMAaAMFeSSI4bYK7 hP5nlMbtwycbwKBuuIkr dmVydGljYWwtYWxp G100XELowPmfNx8tgXE8 E9DfJkd4GIIgrGgfKZ6y xBYaFDhkRk7ugIegsNxa RE6iIYIidumoXDZj yG4lPIVwqISspRnnAQ7i IFDebfuxk397EaBiPBO8 OHSegHXfD2MpnT7wQsGd JDTqAHDhP0UvdDVu RVumJ246QTzwNlE4OAFs qqOjB6OnOOOdfVncAwP1 c1V5Tz6OcEWhZ6CdO0x6 J5VdJmxmvNV+PC90 IKKyYL33rXPttIEmq4zt gNe0UzTwUAMeEEQ6nWpi ELugy6XjPOIqI67kuSHt r9J4BDHgjLpwrHDz EhLcqSP2lD7mXJxwhlly l6lrvwpxOauvf9klju22 cV84J02bUJblYDYhSAXl BEZxXVOdkLqxum9u uB9rSu0+RHAcwDW1iER4 sX0gHfRxRiN7JRdbI073 QwAgiJHoRugfe8ryx2ff gZm5WvKcZWYbuvJf cOyqQBJ7z4NpUe82E24i IHdpZHRoPSIyMCUiIHZh pTugov5toM8yPs6+PC9j k2zwit03jX26yEQ+ RBQlETZ0lRkgYYizWHKj sJ1jTDbyPuS3UTZaHdLs fF40kRBvORehVj0okWnh jXlsTD9kGOCaelau o530YnNkg6bpJHMunNSs REgkBAV5H08bw0V2UOGe NQDtLKI7eXD5iD7hxPik bjogbGVmdDsgdmVy hLesRSclZDpgV329IFMi cLfpIeMuqPBwQ9lngfBT NC6eHkukjMZ+PHRkIHN0 kDslJSfyBURqjO9x CARoV5q7ElQeYbT5NMjt S9VhgrI0OYEkiZKqSMJg pQBQzO2xuhqbj7pteoej VzXuIQQnBDb4JUn1 XSHhmSefNrSvOXM5MhO7 BDZ1ySSvkR8vrLckkprp kF3dPpe+RklOOjwvdGQ+ KIXoZKS5mKjyAXto DKOjoX5vOAHtP1w0RgCa GbB9LMxiX4UhvpS1TJCx xBHyANXzeCRVvH0uocin o7tevpvtRgDrXBCa BCl6QPx3PTOazBmwTkLj TDI4ScD1MLD5tGJvgX0e oFwppaujiX6qXfq+TVJO OjwvdGQ+PHRkIHN0 yMtxWAjoIHIoiG8hLKCz S9g5AwQoGaV5HCxuK6Yy wxI1CPTbaUJbBINouRSS gR1fqltwj5mwjzqt UgWcNDTlCHi5VZq9CTUt rSzhEzFhTVV6IkL5EIY6 qDOkhM1lxCytezmoxD6k Oyc+MNX9DSP5AH79 GR10L0FdIdsluRKmlTC+ PHRhYmxlIHdpZHRoPScx EDArGxEgnMruXD5fAo4b ZGVyLWNvbGxhcHNl OiBj (more content not included)... Normal [facility] Auto Diffon 08-24-2020 Basophils/100 WBC (Bld) 1.0 % Normal 0.0-2.0 [facility] Comment on above: Order Comment: Order Added by Discern Expert. Performed By: #### 1 1975769, 7644696, 0135586, 07213578, 4137614, 9532238, 73348953, 18781937 ####[facility] [address] [place] [address] Basophils/Leukocytes Auto (Bld) [Pure # fraction] 0.1 E9/L Normal 0.0-0.2 [facility] Comment on above: Order Comment: Order Added by Discern Expert. Performed By: #### 1 5185198, 3603362, 2336224, 50220681, 9221724, 7602032, 95325382, 82958369 ####[facility] [address] [place] [address] Eosinophils/100 WBC (Bld) 2.5 % Normal 0.0-8.0 [facility] Comment on above: Order Comment: Order Added by Discern Expert. Performed By: #### 1 2067171, 5407198, 6260522, 17466174, 7794799, 4145671, 03596748, 23580330 ####[facility] [address] [place] [address] Eosinophils/Leukocytes Auto (Bld) [Pure # fraction] 0.3 E9/L Normal 0.0-0.5 [facility] Comment on above: Order Comment: Order Added by Discern Expert. Performed By: #### 1 6229646, 7139945, 8995600, 47573511, 6766481, 9435162, 57831378, 83756859 ####[address] [place] [address] Lymphocytes/100 WBC (Bld) 21.0 % Normal 14.0-50.0 [facility] Comment on above: Order Comment: Order Added by Discern Expert. Performed By: #### 1 8159410, 9725312, 2692364, 11266007, 8760462, 1176644, 74327056, 38997652 ####[address] [address] Lymphocytes/Leukocytes Auto (Bld) [Pure # fraction] 2.1 E9/L Normal 1.0-4.0 [facility] Comment on above: Order Comment: Order Added by Crystal Expert. Performed By: #### 1 1090040, 0467182, 4458699, 23157168, 2705698, 8029436, 42326342, 09698112 ####[address] [address] Monocytes/100 WBC (Bld) 6.2 % Normal 4.0-14.0 [facility] Comment on above: Order Comment: Order Added by Discern Expert. Performed By: #### 1 8991010, 3047443, 1677010, 47892371, 7440196, 4464121, 56295278, 82072030 ####[address] [place] [address] Monocytes/Leukocytes Auto (Bld) [Pure # fraction] 0.6 E9/L Normal 0.2-1.0 [facility] Comment on above: Order Comment: Order Added by Crystal Expert. Performed By: #### 1 3793353, 1292863, 4547903, 49667954, 3764098, 0106519, 98169873, 54305315 ####[address] [place] [address] Neutrophils/100 WBC (Bld) 69.3 % Normal 36.0-75.0 [facility] Comment on above: Order Comment: Order Added by Discern Expert. Performed By: #### 1 7217943, 2436665, 5812176, 46713496, 7202941, 5199846, 40905659, 55023886 ####[facility] [address] [place] [address] Neutrophils/Leukocytes Auto (Bld) [Pure # fraction] 6.9 E9/L Normal 2.0-7.5 [facility] Comment on above: Order Comment: Order Added by Discern Expert. Performed By: #### 1 0719617, 3295794, 1669467, 07704674, 6524441, 1198844, 90442680, 91148002 ####[address] [place] [address] BMP 08-24-2020 Creatinine [Mass/Vol] 1.1 mg/dL Normal 0.5-1.3 [facility] Comment on above: Performed By: #### 1 5893472, 1116847, 3982838, 44589565, 8003468, 0917640, 08226814, 32436032 ####[facility] [address] [place] [address] Urea nitrogen [Mass/Vol] 19 mg/dL Normal 5-21 [facility] Comment on above: Performed By: #### 1 8411734, 2742550, 1306769, 75095970, 5311728, 8382290, 34049380, 52124351 ####[facility] [address] [place] [address] Urea nitrogen/Creatinine [Mass ratio] 17 No Units Normal 10-20 [facility] Comment on above: Performed By: #### 1 8260220, 4438094, 9143288, 09155035, 3433241, 7746220, 89362693, 26764278 ####[facility] [address] [place] [address] Anion gap [Moles/Vol] 14 mmol/L Normal 6-16 [facility] Comment on above: Performed By: #### 1 2608252, 1880937, 3886719, 83408125, 8927545, 2213005, 32259494, 22045252 ####[facility] [address] [place] [address] Calcium [Mass/Vol] 9.4 mg/dL Normal 8.9-11.1 [facility] Comment on above: Performed By: #### 1 2974527, 5613158, 6480493, 01800562, 1453567, 7463817, 49887852, 89751067 ####[facility] [address] [place] [address] Chloride [Moles/Vol] 94 mmol/L Low 101-111 [facility] Comment on above: Performed By: #### 1 8032219, 2782852, 2419217, 80564861, 9246146, 8964168, 15045568, 60996401 ####[facility] [address] [place] [address] CO2 [Moles/Vol] 29 mmol/L Normal 21-31 [facility] Comment on above: Performed By: #### 1 8613073, 7390585, 0729632, 13536812, 6443740, 3591495, 45880725, 06978654 ####[facility] [address] [place] [address] Glucose [Mass/Vol] 103 mg/dL Normal 55-199 [facility] Comment on above: Result Comment: If t his glucose result represents a fasting glucose, interpretation should refer to the following reference range: 55-99 mg/dL Performed By: #### 1 6513951, 3073954, 0518771, 93383599, 5556011, 4096284, 55240891, 65503609 ####[facility] [address] [place] [address] Potassium [Moles/Vol] 4.0 mmol/L Normal 3.5-5.3 [facility] Comment on above: Performed By: #### 1 9328418, 1857862, 4496872, 13468864, 0476588, 1974448, 81626298, 32579979 ####[facility] [address] [place] [address] Sodium [Moles/Vol] 133 mmol/L Low 135-145 [facility] Comment on above: Performed By: #### 1 3442437, 9489031, 4572755, 76552527, 1388654, 5935753, 26079204, 23374332 ####[facility] [address] [place] [address] BNPon 08-24-2020 Natriuretic peptide B (Bld) [Mass/Vol] 17 pg/mL Normal 5-80 [facility] Comment on above: Performed By: #### 1 0454453, 2837035, 6074819, 22698517, 7111013, 4986136, 17517192, 79213214 ####[facility] [address] [place] [address] CBC w/ Auto Diffon Erythrocyte distribution width (RBC) [Ratio] 12.9 % Normal 10.9-14.2 [facility] Comment on above: Performed By: #### 1 0975132, 5151037, 2480687, 79161131, 3501187, 2142578, 66196327, 84668620 ####[facility] [address] [place] [address] Hematocrit (Bld) [Volume fraction] 44.4 % Normal 37.7-49.0 [facility] Comment on above: Performed By: #### 1 8848418, 0868939, 2497689, 58184731, 8704025, 7550968, 89089396, 13768486 ####[facility] [address] [place] [address] Hemoglobin (Bld) [Mass/Vol] 15.3 g/dL Normal 13.5-17.5 [facility] Comment on above: Performed By: #### 1 6500481, 1724064, 3137343, 83015972, 5830993, 4997548, 49593652, 11118575 ####[address] [place] [address] MCH (RBC) [Entitic mass] 31.5 pg Normal 27.0-34.0 [facility] Comment on above: Performed By: #### 1 3763136, 7285629, 4149083, 16984713, 7122686, 4031965, 97891411, 54934236 ####[address] [address] MCHC (RBC) [Mass/Vol] 34.4 g/dL Normal 31.4-36.0 [facility] Comment on above: Performed By: #### 1 5095285, 7605161, 6944249, 13677416, 5503587, 8821831, 67302332, 73810970 ####[address] [address] MCV (RBC) [Entitic vol] 91.6 fL Normal 80.0-100.0 [facility] Comment on above: Performed By: #### 1 8870474, 2253855, 6936337, 97991576, 2088051, 5047178, 62798315, 37980916 ####[address] [address] Platelet mean volume (Bld) [Entitic vol] 8.4 fL Normal 6.4-10.8 [facility] Comment on above: Performed By: #### 1 2710641, 9604924, 2836216, 59633192, 3482856, 3240046, 65521706, 72714932 ####[address] [address] Platelets (Bld) [#/Vol] 289.0 E9/L Normal 150.0-500.0 [facility] Comment on above: Performed By: #### 1 4452996, 5603980, 2212293, 21136642, 0537137, 1170767, 20033616, 02620455 ####[facility] [address] [place] [address] RBC (Bld) [#/Vol] 4.8 E12/L Normal 4.3-5.9 [facility] Comment on above: Performed By: #### 1 0534538, 0768791, 1430310, 13041039, 2340893, 2504572, 48055642, 33290056 ####[facility] [address] [place] [address] WBC corrected for nucl RBC Auto (Bld) [#/Vol] 9.9 E9/L Normal 4.0-11.0 [facility] Comment on above: Performed By: #### 1 6264292, 5737641, 8744649, 15176649, 4121475, 3197054, 26925476, 70566076 ####[facility] [address] [place] [address] CTA Cheston 08-24-2020 CTA Chest Exam Date/Time: [...] 370 Contrast amount in ml's: 78 Normal [facility] Consent for Treatmenton 08-07 Consent for Treatment [id number] #1.00CD:127 Normal [facility] D-Dimeron 08-24-2020 Fibrin D-dimer FEU (PPP) [Mass/Vol] 845 ng/mL Abnormal 215-500 [facility] Comment on above: Result Comment: Resu [...] infections Liver cirrhosis Performed By: #### 1 4848054, 1462961, 7210926, 00796588, 1186277, 7079540, 98602076, 76201218 ####[facility] [address] [place] [address] Discharge Instructionson Discharge Instructions [id number] #1.00CD:127 Normal [facility] ED Clinical Summaryon 2020 ED Clinical Summary [id number] ED Clinical Summary Person Information Name: LILIANA MICHAELS/[facility] Age: 55 Years : 1965 Sex: Male Language: Irish PCP: SIMONE JEAN BAPTISTE DC Marital Status: Single Phone: [phone] Visit Id: Visit Reason: Rib/trunk pain-swelling; SIDE [...] 08/24/2020 03:27:58 08/24/2020 03:27:58 08/24/2020 03:27:58 ADDRESS: [address] [place] [id number] [facility] DOC NOTES: MEDICAL INFORMATION: Prescriptions Given: New Medications [id number], [address], [place] [id number], [phone] azithromycin (Zithromax TRI-AMIRA 500 mg oral tablet) [...] With: Address: When: SIMONE JEAN BAPTISTE [address] [place] [id number] Business (1) In 1 day 08/25/2020 Comments: Patient is advised to follow-up with his primary care physician in 1 to 2 days. He is also advised to come back to the emergency department if symptoms get worse. DIAGNOSIS: 1:Rib pain on left side Normal [facility] ED Note-Physicianon 08-25-19 ED Note-Physician Basic [...] date 08/24/20 2:30:00 EDT [place] [place]: albuterol-ipratropiu m, 3 mL, Soln-Inh, Inhalation, Once, Stop date 08/24/20 0:16:00 EDT, STAT, Start date 08/24/20 0:16:00 EDT azithromycin, 500 mg = 1 tab(s), Oral, Daily, # 3 tab(s), Refills(s) 0, Pharmacy: [facility]pharm[facility] #[id number], 163, cm, 08/24/20 0:04:00 EDT, Height/Length Dosing, 101, kg, 08/24/20 0:04:00 EDT, Weight Dosing famotidine, 20 mg = 1 tab(s), Tab, Oral, Once, Stop date 08/24/20 0:17:00 EDT, STAT, Start date 08/24/20 0:17:00 EDT lidocaine topical, 1 patch(es), Topical, Daily, 7 patch(es), Refill(s) 0, apply 12 hours on and 12 hours off daily, [facility]/pharmacy #[id number], 163, cm, 08/24/20 0:04:00 EDT, Height/Length Dosing, 101, kg, 08/24/20 0:04:00 EDT, uJlian (more content not included)... Normal [facility] Comment on above: Result Comment: Elec [...] Document Reviewed: 11/28/2008 ExitCare? Patient Information ?2014 [employer]. This information is not intended to replace advice given to you by your health care provider. Make sure you discuss any questions you have with your health care provider. Normal [facility] ED Patient Summaryon 021 ED Patient Summary [address] [address] Patient Discharge Instructions Person Information Name: LILIANA MICHAELS Age: 55 Years Arrival Date: 08/23/2020 23:48:11 Discharge Diagnosis: 1:Rib pain on left side Primary Care Physician: SIMONE JEAN BAPTISTE DC Provider Information Primary Provider: Pia LANE, David Advanced Propeller Engineer:None The exam and treatment you received in the Emergency Department were for an urgent problem and are not intended as complete care. It is important that you follow up with a doctor, nurse practitioner, or physician?s actuarial assistant for ongoing care. If your symptoms [...] With: Address: When: SIMONE JEAN BAPTISTE [address] [place] [id number] Business (1) In 1 day 08/25/2020 Comments: [...] opioids can be used to help relieve hgarxxmp-ya-ldhdzt pain and are often prescribed following a [...] be struggling (more content not included)... Normal [facility] PT & PTTon 08-24-2020 aPTT Coag (PPP) [Time] 30.2 second(s) Normal 25.1-36.5 [facility] Comment on above: Result Comment: Hepa rin therapeutic range (represented by Anti-Factor Xa activity of 0.2 - 0.4 U/mL) corresponds to PTT of 56.6 - 109.0 sec. Performed By: #### 1 3118147, 8227606, 3099220, 05033599, 4542594, 7306281, 76276508, 56518570 ####[facility] [address] [place] [address] INR Coag (PPP) [Relative time] 1.0 {INR} Invalid Interpretation Code [facility] Comment on above: Result Comment: INR results are specifically intended to assess patients stabilized on long-term Anticoagulation therapy suggested INR?s ?Less Intensive Anticoagulation? 2.0 ? 3.0 Conventional Range 3.0 ? 4.5 Performed By: #### 1 1872086, 7006897, 3366955, 39090408, 4881499, 6425403, 69461751, 36363740 ####[facility] [address] [place] [address] PT Coag (PPP) [Time] 11.6 second(s) Normal 10.2-12.9 [facility] Comment on above: Performed By: #### 1 4342330, 0744274, 4862735, 75463087, 2104282, 8989596, 91777871, 50980974 ####[facility] [address] [place] [address] RAD - Preliminary Cat Scan R eporton 08-24-2020 RAD - Preliminary Cat Scan Report [id number] Normal [facility] Rapid COVID Antigen ([facility])on 08-24-2020 Rapid COV Int NEG Ctl Pass Normal [facility] Comment on above: Performed By: #### 2 [id number] ####[facility] [address] [place] [address] Rapid COV Int POS Ctl Pass Normal [facility] Comment on above: Performed By: #### 2 [id number] ####[facility] [address] [place] [address] SARS-CoV-2 (COVID-19) RNA KATT+probe Ql (Unsp spec) Not detected Normal Not Detected [facility] Comment on above: Result Comment: The IntroNiche? System for Rapid Detection of SARS-CoV-2 is [...] For in vitro diagnostic use. In the [facility], only for use under an [...] or revoked sooner. Performed By: #### 2 [id number] ####[address] [address] Employed in Healthcare NO Normal [facility] Comment on above: Performed By: #### 2 [id number] ####[place] [address] [place] [address] First Test Unknown Normal [facility] Comment on above: Performed By: #### 2 [id number] ####[address] [place] [address] Hospitalized? NO Normal [facility] Comment on above: Performed By: #### 2 [id number] ####[address] [place] [address] ICU NO Normal [facility] Comment on above: Performed By: #### 2 [id number] ####[place] [place] [address] ? NO Normal [facility] Comment on above: Performed By: #### 2 [id number] ####[address] [place] [address] Resides in a Congregate Care Setting NO Normal [facility] Comment on above: Performed By: #### 2 [id number] ####[place] [address] [place] [address] Symptomatic as defined by CDC YES Normal [facility] Comment on above: Performed By: #### 2 [id number] ####[address] [address] Troponin 0 Hr.on 08-24-2020 Troponin I.cardiac [Mass/Vol] 4.10 pg/mL Low 15.90-38.40 [facility] Comment on above: Result Comment: The 95% CI (Confidence Interval) PPV (Positive Predictive Value) for myocardial infarction in females is 38 pg/mL, in males 51 pg/mL. The results should be used in conjunction with clinical conditions of myocardial infarction. ([employer] High Sensitivity Troponin I Instructions For Use, [employer], December 2017) Performed By: #### 1 [id number], [id number], 2482501, [id number], 0148179, 1157053, [id number], [id number] ####[facility] [address] [place] [address] Troponin 3 Hr.on 08-24-2020 Troponin I.cardiac [Mass/Vol] 4.40 pg/mL Low 15.90-38.40 [facility] Comment on above: Result Comment: The 95% CI (Confidence Interval) PPV (Positive Predictive Value) for myocardial infarction in females is 38 pg/mL, in males 51 pg/mL. The results should be used in conjunction with clinical conditions of myocardial infarction. ([employer] High Sensitivity Troponin I Instructions For Use, [employer], December 2017) Performed By: #### 1 [id number] ####[facility] [address] [place] [address] XR Chest Single Viewon 08-24 XR Chest [...] V. Transcribed by: VIVIAN Technologist: DAT Normal [facility] eGFRon 08-24-2020 GFR/1.73 sq M.predicted among blacks MDRD (S/P/Bld) [Vol rate/Area] mL/min/{1.73_m2} Normal >=59 [facility] Comment on above: Order Comment: Order added by Discern Expert. Result Comment: eGFR is race adjusted. AA=. Performed By: #### 1 [id number], 9365920, 2359500, [id number], 8884610, 2169423, [id number], [id number] ####[facility] [address] [place] [address] GFR/1.73 sq M.predicted among non-blacks MDRD (S/P/Bld) [Vol rate/Area] mL/min/{1.73_m2} Normal >=59 [facility] Comment on above: Order Comment: Order added by Discern Expert. Result Comment: Attorney Lawyer jeniffer kidney disease could be indicated at eGFR's of less than 60 mL/min/1.73m2. Kidney failure is indicated at less than 15 mL/min/1.73m2. Performed By: #### 1 [id number], 9293244, 3838045, 85247164, 4079323, 4405672, 88945519, [id number] ####[facility] [address] [place] [address] HIP RIGHT 1 OR 2 VWS WITH PE LVISon 07-24-2020 HIP RIGHT 1 OR [address] [facility] Department of Radiology [address] [place] [id number] Patient Name: LILIANA MICHAELS : 1965 [...] Electronically signed: Ana M Mariee. Transcribed by: [email or web address], User Resident: Electronically Signed by: ANA M MARIEE @ 07/24/2020 10:[address] [facility] Comment on above: Order Comment: Views (X-RAY, HIP): Radiologic Protocol HIP RIGHT 1 OR 2 VWS WITH PE LVISon 04-24-2020 HIP RIGHT 1 OR [address] [facility] Department of Radiology [address] [place] [phone] Patient Name: LILIANA MICHAELS : 1965 [...] abnormality. Electronically signed: Ed España. Transcribed by: [email or web address], User Resident: Electronically Signed by: ED ESPAÑA @ 04/25/2020 08:[address] [facility] Comment on above: Order Comment: Views (X-RAY, HIP): Radiologic Protocol Operative Reporton 0 Operative Report MR#: [id number] [facility] Pt. Name: Liilana Michaels Room #: 6AB [id number] Discharge 03/15/2020 Date: Birthdate: 1965 OPERATIVE REPORT [...] a (more content not included)... Normal [facility] BASIC METABOLIC PANELon 11-0 -2019 Calcium [Mass/Vol] 8.8 mg/dL Normal 8.6-10.[address] [facility] Comment on above: Order Comment: Views (X-RAY, HIP): Radiologic Protocol Performed By: #### 0 [id number] ####[facility] [place] [address], [facility] Chloride [Moles/Vol] 98 mmol/L Normal 98-[address] [facility] Comment on above: Order Comment: Views (X-RAY, HIP): Radiologic Protocol Performed By: #### 0 0071 ####[facility] [place] [address], [facility] CO2 [Moles/Vol] 30 mmol/L Normal 21-[address] [facility] Comment on above: Order Comment: Views (X-RAY, HIP): Radiologic Protocol Performed By: #### 0 0071 ####[facility] [facility] [place] [address], [facility] Creatinine [Mass/Vol] 0.96 mg/dL Normal 0.70-1.[address] [facility] Comment on above: Order Comment: Views (X-RAY, HIP): Radiologic Protocol Performed By: #### 0 0071 ####[facility] [facility] [place] [address], [facility] GFR/1.73 sq M.predicted among blacks MDRD (S/P/Bld) [Vol rate/Area] mL/min/{1.73_m2} Normal >[address] [facility] Comment on above: Order Comment: Views (X-RAY, HIP): Radiologic Protocol Performed By: #### 0 0071 ####[facility] [facility] [place] [address], [facility] GFR/1.73 sq M.predicted among non-blacks MDRD (S/P/Bld) [Vol rate/Area] mL/min/{1.73_m2} Normal >[address] [facility] Comment on above: Order Comment: Views (X-RAY, HIP): Radiologic Protocol Performed By: #### 0 0071 ####[facility] [facility] [place] [address], [facility] Glucose [Mass/Vol] 151 mg/dL High 70-[address] [facility] Comment on above: Order Comment: Views (X-RAY, HIP): Radiologic Protocol Performed By: #### 0 0071 ####[facility] [facility] [place] [address], [place] Potassium [Moles/Vol] 4.4 mmol/L Normal 3.5-5.[address] [facility] Comment on above: Order Comment: Views (X-RAY, HIP): Radiologic Protocol Performed By: #### 0 0071 ####[facility] [place] [address], [place] Sodium [Moles/Vol] 133 mmol/L Low 136-[address] [facility] Comment on above: Order Comment: Views (X-RAY, HIP): Radiologic Protocol Performed By: #### 0 0071 ####[facility] [place] [address], [facility] Urea nitrogen [Mass/Vol] 20 mg/dL Normal 7-[address] [facility] Comment on above: Order Comment: Views (X-RAY, HIP): Radiologic Protocol Performed By: #### 0 0071 ####[facility] [place] [address], [facility] CBC COMPLETE BLOOD COUNTon 05-15-2019 Erythrocyte distribution width (RBC) [Ratio] 12.2 % Normal 11.5-15.[address] [facility] Comment on above: Order Comment: No: D o not add to previous draw Performed By: #### 5 0608 #### [facility] [address] [place] [id number], [facility] Hematocrit (Bld) [Volume fraction] 42.2 % Normal 39.0-50.[address] [facility] Comment on above: Order Comment: No: D o not add to previous draw Performed By: #### 5 0608 #### [facility] [address] [place] [address], [facility] Hemoglobin (Bld) [Mass/Vol] 13.9 g/dL Normal 13.0-17.[address] [facility] Comment on above: Order Comment: No: D o not add to previous draw Performed By: #### 5 0608 #### [facility] [address] [place] [address], [place] MCH (RBC) [Entitic mass] 31.4 pg Normal 27.0-33.[address] [facility] Comment on above: Order Comment: No: D o not add to previous draw Performed By: #### 5 0608 #### [facility] [address] [place], [place] [address] [place] [address] MCHC (RBC) [Mass/Vol] 32.9 g/dL Normal 32.0-35.[address] [facility] Comment on above: Order Comment: No: D o not add to previous draw Performed By: #### 5 0608 #### [facility] [address] [place] [address], [facility] MCV (RBC) [Entitic vol] 95.5 fL Normal 82.0-98.[address] [facility] Comment on above: Order Comment: No: D o not add to previous draw Performed By: #### 5 0608 #### [facility] [address] [facility] [place] [address], [facility] Nucleated RBC/100 WBC (Bld) [Ratio] 0 % Normal 0-[address] [facility] Comment on above: Order Comment: No: D o not add to previous draw Performed By: #### 5 0608 #### [facility] [address] [place] [address], [facility] PLAT CNT 254 10*3/uL Normal 150-[address] [facility] Comment on above: Order Comment: No: D o not add to previous draw Performed By: #### 5 0608 #### [facility] [address] [facility] [place] [address], [facility] RBC (Bld) [#/Vol] 4.42 10*6/uL Normal 4.20-5.[address] [facility] Comment on above: Order Comment: No: D o not add to previous draw Performed By: #### 5 0608 #### [facility] [address] [facility] [place] [id number], [facility] WBC (Bld) [#/Vol] 14.44 10*3/uL High 4.00-10.[address] [facility] Comment on above: Order Comment: No: D o not add to previous draw Performed By: #### 5 0608 #### [facility] [address] [place] [address], [facility] POC GLUCOSE LABon 03-15-2020 Glucose [Mass/Vol] 193 mg/dL High 70-[address] [facility] Comment on above: Performed By: #### 8 [id number] #### [facility] [address] CBC W/DIFFon 03-14-2020 ABS IMM GRANS 0.2 10*3/uL Normal 0.0-0.[address] [facility] Comment on above: Performed By: #### 5 0103 ####[facility] ABS NEUTROPHILS 8.0 10*3/uL High 1.6-7.[address] [facility] Comment on above: Performed By: #### 5 0103 ####[facility] Basophils (Bld) [#/Vol] 0.1 10*3/uL Normal 0.0-0.[address] [facility] Comment on above: Performed By: #### 5 0103 ####[facility] [place] [address], [facility] Basophils/100 WBC (Bld) 1.1 % High 0.0-1.[address] [facility] Comment on above: Performed By: #### 5 0103 ####[facility] [facility] [address], [facility] Eosinophils (Bld) [#/Vol] 0.3 10*3/uL Normal 0.0-0.[address] [facility] Comment on above: Performed By: #### 5 0103 ####[facility] [place] [address], [facility] Eosinophils/100 WBC (Bld) 2.7 % Normal 0.0-6.[address] [facility] Comment on above: Performed By: #### 5 0103 ####[facility] [place] [address], [place] Erythrocyte distribution width (RBC) [Ratio] 12.3 % Normal 11.5-15.[address] [facility] Comment on above: Performed By: #### 5 0103 ####[facility] Hematocrit (Bld) [Volume fraction] 50.5 % High 39.0-50.[address] [facility] Comment on above: Performed By: #### 5 0103 ####[facility] Hemoglobin (Bld) [Mass/Vol] 17.3 g/dL High 13.0-17.[address] [facility] Comment on above: Performed By: #### 5 3 ####[address] IMMATURE GRANS 1.4 % High 0.0-1.[address] [facility] Comment on above: Performed By: #### 5 3 ####[place] [id number] [address] Lymphocytes (Bld) [#/Vol] 1.8 10*3/uL Normal 1.2-4.[address] [facility] Comment on above: Performed By: #### 5 3 ####[place] [address] [address] Lymphocytes/100 WBC (Bld) 15.6 % Low 20.0-45.[address] [facility] Comment on above: Performed By: #### 5 3 ####[place] [address] [address] MCH (RBC) [Entitic mass] 31.7 pg Normal 27.0-33.[address] [facility] Comment on above: Performed By: #### 5 3 ####[facility] [place] [address], [facility] MCHC (RBC) [Mass/Vol] 34.3 g/dL Normal 32.0-35.[address] [facility] Comment on above: Performed By: #### 5 0103 ####[facility] [facility] [place] [address], [facility] MCV (RBC) [Entitic vol] 92.7 fL Normal 82.0-98.[address] [facility] Comment on above: Performed By: #### 5 0103 ####[facility] [facility] [place] [address], [facility] Monocytes (Bld) [#/Vol] 0.9 10*3/uL Normal 0.1-1.[address] [facility] Comment on above: Performed By: #### 5 0103 ####[facility] [facility].[address] MONOS 8.2 % Normal 5.0-12.[address] [facility] Comment on above: Performed By: #### 5 0103 ####[facility] [facility].[address] Neutrophils/100 WBC (Bld) 71.0 % Normal 40.0-72.[address] [facility] Comment on above: Performed By: #### 5 3 ####[facility]3000 [facility].[address] Nucleated RBC/100 WBC (Bld) [Ratio] 0 % Normal 0-[address] [facility] Comment on above: Performed By: #### 5 0103 ####[facility] [facility] [place] [address], [facility] PLAT CNT 301 10*3/uL Normal 150-[address] [facility] Comment on above: Performed By: #### 5 0103 ####[facility] [place] [address], [facility] RBC (Bld) [#/Vol] 5.45 10*6/uL Normal 4.20-5.[address] [facility] Comment on above: Performed By: #### 5 0103 ####[facility] WBC (Bld) [#/Vol] 11.22 10*3/uL High 4.00-10.[address] [facility] Comment on above: Performed By: #### 5 0103 ####[facility] HIP RIGHT 1 OR 2 VWS WITH PE LVISon 03-14-2020 HIP RIGHT 1 OR [address] [facility] Department of Radiology [address] [place] [id number] Patient Name: LILIANA MICHAELS : 1965 [...] purposes Electronically signed: Aria Steinberg. Transcribed by: [email or web address], User Resident: Electronically Signed by: ARIA STEINBERG @ 03/14/2020 03:[address] [facility] Comment on above: Order Comment: RT TH A POC GLUCOSE LABon 03-14-2020 Glucose [Mass/Vol] 222 mg/dL High 70-[address] [facility] Comment on above: Performed By: #### 8 [id number] #### [facility] [address] [place] [address], [facility] Glucose [Mass/Vol] 217 mg/dL High 70-[address] [facility] Comment on above: Performed By: #### 8 5499 ####[facility] [facility] [address], [facility] Glucose [Mass/Vol] 141 mg/dL High 70-[address] [facility] Comment on above: Performed By: #### 8 5499 #### [facility] [address] [place] [address], [facility] PORTABLE HIP RIGHT 1 OR 2 VW S WITH PELVISon 03-14-2020 PORTABLE HIP RIGHT 1 OR [address] [facility] Department of Radiology [address] [place] [address] Patient Name: LILIANA MICHAELS : [...] air Electronically signed: Aria Steinberg. Transcribed by: [email or web address], User Resident: Electronically Signed by: ARIA STEINBERG @ 03/14/2020 03:[address] [facility] Comment on above: Order Comment: Hardw are Evaluation, AP/Lateral TYPE AND SCREENon 03-14-2020 ABO INTERPRETATION O Normal [facility] Comment on above: Performed By: #### 6 2586 ####[facility] [place] [address], [place] RH INTERPRETATION Positive Normal [facility] Comment on above: Performed By: #### 6 2586 ####[facility] [place] [address], [place] Vital Signs Date Time Vital Sign Value Performing Clinician Facility 05-23-2024 08:30-0500 Body height 162.6 cm Amador Son MD Work Phone: [facility] 05-23-2024 08:30-0500 Body mass index (BMI) [Ratio] 37.76 kg/m2 Amador Son MD Work Phone: [facility] 05-23-2024 08:30-0500 Body weight 99.79 kg Amador Son MD Work Phone: [facility] 05-23-2024 08:30-0500 Diastolic blood pressure 78 mm[Hg] Amador Son MD Work Phone: [facility] 05-23-2024 08:30-0500 Heart rate 74 /min Amador Son MD Work Phone: [facility] 05-23-2024 08:30-0500 Systolic blood pressure 118 mm[Hg] Amador Son MD Work Phone: [facility] 04-24-2024 11:05-0500 Body height 162.6 cm Ishmael Simon MD Work Phone: [facility] 04-24-2024 11:05-0500 Body mass index (BMI) [Ratio] 37.76 kg/m2 Ishmael Simon MD Work Phone: [facility] 04-24-2024 11:05-0500 Body temperature 97.81 [degF] Ishmael Simon MD Work Phone: [facility] 04-24-2024 11:05-0500 Body weight 99.79 kg Ishmael Simon MD Work Phone: [facility] 04-24-2024 11:05-0500 Diastolic blood pressure 68 mm[Hg] Ishmael Simon MD Work Phone: [facility] 04-24-2024 11:05-0500 Heart rate 88 /min Ishmael Simon MD Work Phone: [facility] 04-24-2024 11:05-0500 Respiratory rate 18 /min Ishmael Simon MD Work Phone: [facility] 04-24-2024 11:05-0500 SaO2% (BldA) [Mass fraction] 95 % Ishmael Simon MD Work Phone: [facility] 04-24-2024 11:05-0500 Systolic blood pressure 116 mm[Hg] Ishmael Simon MD Work Phone: [facility] 02-06-2024 13:14-0400 Body height 162.6 cm Ishmael Simon MD Work Phone: [facility] 02-06-2024 13:14-0400 Body mass index (BMI) [Ratio] 37.25 kg/m2 Ihsmael Simon MD Work Phone: [facility] 02-06-2024 13:14-0400 Body temperature 97.5 [degF] Ishmael Simon MD Work Phone: [facility] 02-06-2024 13:14-0400 Body weight 98.43 kg Ishmael Simon MD Work Phone: [facility] 02-06-2024 13:14-0400 Diastolic blood pressure 72 mm[Hg] Ishmael Simon MD Work Phone: [facility] 02-06-2024 13:14-0400 Heart rate 84 /min Ishmael Simon MD Work Phone: [facility] 02-06-2024 13:14-0400 Respiratory rate 20 /min Ishmael Simon MD Work Phone: [facility] 02-06-2024 13:14-0400 SaO2% (BldA) [Mass fraction] 97 % Ishmael Simon MD Work Phone: [facility] 02-06-2024 13:14-0400 Systolic blood pressure 134 mm[Hg] Ishmael Simon MD Work Phone: [facility] 01-13-2024 09:29-0400 Body height 162.6 cm Ishmael Simon MD Work Phone: [facility] 01-13-2024 09:29-0400 Body mass index (BMI) [Ratio] 36.39 kg/m2 Ishmael Simon MD Work Phone: [facility] 01-13-2024 09:29-0400 Body temperature 97.5 [degF] Ishmael Simon MD Work Phone: [facility] 01-13-2024 09:29-0400 Body weight 96.16 kg Ishmael Simon MD Work Phone: [facility] 01-13-2024 09:29-0400 Diastolic blood pressure 70 mm[Hg] Ishmael Simon MD Work Phone: [facility] 01-13-2024 09:29-0400 Heart rate 91 /min Ishmael Simon MD Work Phone: [facility] 01-13-2024 09:29-0400 Respiratory rate 18 /min Ishmael Simon MD Work Phone: [facility] 01-13-2024 09:29-0400 SaO2% (BldA) [Mass fraction] 97 % Ishmael Simon MD Work Phone: [facility] 01-13-2024 09:29-0400 Systolic blood pressure 120 mm[Hg] Ishmael Simon MD Work Phone: [facility] 11-09-2023 10:10-0400 Body height 162.6 cm Naima Wright [employer]SULTANT Work Phone: [facility] 11-09-2023 10:10-0400 Body mass index (BMI) [Ratio] 35.27 kg/m2 Naima Wright [employer]AUTOMATION CONSULTANT Work Phone: [facility] 11-09-2023 10:10-0400 Body weight 93.21 kg Naima Wright [employer] OPERATOR V[employer]AUTOMATION CONSULTANT Work Phone: [facility] 11-09-2023 10:10-0400 Diastolic blood pressure 66 mm[Hg] Naima Wright [employer] OPERATOR V[employer]ICAL[employer]AUTOMATION CONSULTANT Work Phone: [facility] 11-09-2023 10:10-0400 Heart rate 68 /min Naima Wright [employer] OPERATOR V[employer]ICAL-AUTOMATION CONSULTANT Work Phone: [facility] 11-09-2023 10:10-0400 Systolic blood pressure 98 mm[Hg] Naima Wright [employer] OPERATOR V[employer]ICAL-AUTOMATION CONSULTANT Work Phone: [facility] 08-10-2023 13:31-0400 Body height 162.6 cm Amador Son MD Work Phone: [facility] 08-10-2023 13:31-0400 Body mass index (BMI) [Ratio] 34.67 kg/m2 Amador Son MD Work Phone: [facility] 08-10-2023 13:31-0400 Body weight 91.63 kg Amador Son MD Work Phone: [facility] 08-10-2023 13:31-0400 Diastolic blood pressure 70 mm[Hg] Amador Son MD Work Phone: [facility] 08-10-2023 13:31-0400 Heart rate 69 /min Amador Son MD Work Phone: [facility] 08-10-2023 13:31-0400 Systolic blood pressure 116 mm[Hg] Amador Son MD Work Phone: [facility] 08-05-2023 17:30-0400 Diastolic blood pressure 67 mm[Hg] Amador Son MD Work Phone: [facility] 08-05-2023 17:30-0400 Heart rate 60 /min Amador Son MD Work Phone: [facility] 08-05-2023 17:30-0400 Respiratory rate 16 /min Amador Son MD Work Phone: [facility] 08-05-2023 17:30-0400 SaO2% (BldA) [Mass fraction] 96 % Amador Son MD Work Phone: [facility] 08-05-2023 17:30-0400 Systolic blood pressure 112 mm[Hg] Amador Son MD Work Phone: [facility] 08-05-2023 12:13-0400 Body height 162.6 cm Amador Son MD Work Phone: [facility] 08-05-2023 12:13-0400 Body mass index (BMI) [Ratio] 34.17 kg/m2 Amador Son MD Work Phone: [facility] 08-05-2023 12:13-0400 Body temperature 97.5 [degF] Amador Son MD Work Phone: [facility] 08-05-2023 12:13-0400 Body weight 90.3 kg Amador Son MD Work Phone: [facility] 07-22-2023 14:38-0400 Body height 162.6 cm Amador Son MD Work Phone: [facility] 07-22-2023 14:38-0400 Body mass index (BMI) [Ratio] 34.33 kg/m2 Amador Son MD Work Phone: [facility] 07-22-2023 14:38-0400 Body weight 90.72 kg Amador Son MD Work Phone: [facility] 07-22-2023 14:38-0400 Diastolic blood pressure 90 mm[Hg] Amador Son MD Work Phone: [facility] 07-22-2023 14:38-0400 Heart rate 41 /min Amador Son MD Work Phone: [facility] 07-22-2023 14:38-0400 Systolic blood pressure 138 mm[Hg] Amador Son MD Work Phone: [facility] 07-14-2022 10:57-0500 Body height 162.56 cm Ishmael Simon Work Phone: [facility] 600 DO Work Phone: 07-14-2022 10:57-0500 Body mass index (BMI) [Ratio] 32.96 kg/m2 Ishmael A Naderer Work Phone: [facility] [employer] 600 DO Work Phone: 07-14-2022 10:57-0500 Body surface area Derived from formula 1.92 m2 Ishmael A Naderer Work Phone: [facility] [employer] 600 DO Work Phone: 07-14-2022 10:57-0500 Body weight 87.09 kg Ishmael A Naderer Work Phone: [facility] [employer] [facility] 600 DO Work Phone: 07-14-2022 10:57-0500 Diastolic blood pressure 64 mm[Hg] Ishmael A Naderer Work Phone: [facility] [employer] 600 DO Work Phone: 07-14-2022 10:57-0500 Heart rate 34 /min Ishmael A Naderer Work Phone: [facility] [employer] [facility] 600 DO Work Phone: 07-14-2022 10:57-0500 Systolic blood pressure 118 mm[Hg] Ishmael A Naderer Work Phone: [facility] [employer] 600 DO Work Phone: 01-28-2022 09:37-0400 Body height 162.56 cm Ishmael A Naderer Work Phone: [facility] 600 DO Work Phone: 01-28-2022 09:37-0400 Body mass index (BMI) [Ratio] 30.9 kg/m2 Ishmael A Naderer Work Phone: [facility] [employer] 600 DO Work Phone: 01-28-2022 09:37-0400 Body surface area Derived from formula 1.87 m2 Ishmael A Naderer Work Phone: [facility] [employer] [facility] 600 DO Work Phone: 01-28-2022 09:37-0400 Body weight 81.65 kg Ishmael Carterr Work Phone: [facility] 600 DO Work Phone: 01-28-2022 09:37-0400 Diastolic blood pressure 50 mm[Hg] Ishmael Rae Raulr Work Phone: [facility] [place] 600 DO Work Phone: 01-28-2022 09:37-0400 Heart rate 41 /min Ishmael Simon Work Phone: [facility] [employer] [facility] 600 DO Work Phone: 01-28-2022 09:37-0400 Systolic blood pressure 112 mm[Hg] Ishmael Rae Alfred Work Phone: [facility] 600 DO Work Phone: Encounters Encounter Date Encounter Type Care Provider Facility Start: 05-23-2024 End: 05-23-2024 Office outpatient visit 25 minutes Amador Son MD Work Phone: [facility] Comment on above: Cardiac pacemaker in situ (Primary Dx); Sick sinus syndrome (Multi); MRI safe cardiac pacemaker in situ; Abnormal EKG; Chronotropic incompetence; Sinoatrial node dysfunction (Multi); Sinus bradycardia; Current smoker; BMI 37.0-37.9, adult Start: 05-23-2024 End: 05-23-2024 Subsequent hospital visit by physician [facility] Comment on above: Sinus bradycardia; Sick sinus syndrome (Multi); Chronotropic incompetence; MRI safe cardiac pacemaker in situ Start: 05-23-2024 End: 05-23-2024 ambulatory AMADOR SON [facility] Start: 04-27-2024 End: 04-27-2024 Red Simon MD Work Phone: [facility] Comment on above: Degeneration of lumb ar intervertebral disc Start: 04-24-2024 End: 04-24-2024 Bamboo flowsheet Ishmael Simon MD Work Phone: [facility] Start: 04-24-2024 End: 04-24-2024 Bamboo flowsheet Ishmael Simon MD Work Phone: [facility] Start: 04-24-2024 End: 04-24-2024 Clinisync Result Encounter Ishmael Simon MD Work Phone: [facility] External Department Unsolicited Start: 04-24-2024 End: 04-24-2024 Patient encounter procedure Ishmael Simon MD Work Phone: [facility] Healthcare Work Phone: Start: 04-24-2024 End: 04-24-2024 Postop follow up visit related to original px Ishmael Simon MD Work Phone: [facility] Comment on above: Medicare annual well ness visit, subsequent (Primary Dx); Type 2 diabetes mellitus with hyperglycemia, without long-term current use of insulin ([facility]/HCC); Essential hypertension, benign (CMS/HCC); Class 2 severe obesity due to excess calories with serious comorbidity and body mass index (BMI) of 37.0 to 37.9 in adult (CMS/HCC) Start: 04-24-2024 End: 04-24-2024 ambulatory ISHMAEL SIMON Not Available Start: 04-16-2024 End: 04-16-2024 ambulatory Jong Reyes MD Facility: [facility] Start: 03-30-2024 End: 03-30-2024 Refill Ishmael Simon MD Work Phone: [facility] Comment on above: Degeneration of lumb ar intervertebral disc Start: 03-27-2024 End: 03-27-2024 Patient encounter procedure Ishmael Simon MD Work Phone: [facility] [place] Work Phone: Start: 03-27-2024 End: 03-27-2024 ambulatory Ishmael Simon MD Work Phone: [facility] Work Phone: Start: 03-16-2024 End: 03-16-2024 ambulatory Danielle Bergeron Facility:[facility] Start: 03-16-2024 Non-patient / Non-visit [facility] Start: 03-01-2024 End: 03-01-2024 Refill Ishmael Simon MD Work Phone: [facility] Comment on above: Degeneration of lumb ar intervertebral disc Start: 02-14-2024 End: 02-14-2024 ambulatory [facility] Start: 02-14-2024 End: 02-14-2024 Subsequent hospital visit by physician Varsha Vance [facility] Comment on above: Cardiac pacemaker in situ; Sinoatrial node dysfunction (Multi) Start: 02-06-2024 End: 02-06-2024 Bamboo flowsheet Ishmael Simon MD Work Phone: [facility] Start: 02-06-2024 End: 02-06-2024 Bamboo flowsheet Ishmael Simon MD Work Phone: [facility] Start: 02-06-2024 End: 02-06-2024 Clinisync Result Encounter sIhmael Simon MD Work Phone: [facility] [...] intervertebral disc Start: 01-25-2024 End: 01-25-2024 ambulatory [facility] Start: 01-25-2024 End: 01-25-2024 Subsequent hospital visit by physician Varsha Restrepo [facility] Comment on above: Cardiac pacemaker in [...] intervertebral disc Start: 12-01-2023 End: 12-01-2023 ambulatory [facility] Ambulatory Start: 11-09-2023 End: 11-09-2023 Office outpatient visit 40 minutes Naima MURILLO Work Phone: [facility] Comment on above: MRI safe [...] by physician Varsha [facility] 2 [facility] Comment on above: Pacemaker Start: 11-09-2023 End: [facility]: 10-10-2023 End: 10-10-2023 ambulatory [facility] Start: 09-26-2023 End: 09-26-2023 ambulatory AMADOR SON [facility] Start: 09-26-2023 End: 09-26-2023 Subsequent hospital visit by physician Maddox Device Remote [facility] Comment on above: Cardiac pacemaker in situ; Sinoatrial node dysfunction (Multi) Start: 08-12-2023 End: 08-12-2023 ambulatory [facility]MAEL VALLE[facility] Ambulatory Start: 08-10-2023 End: 08-10-2023 Subsequent hospital visit by physician Maddox Ultrasound 3 [facility] Comment on above: Localized swelling o n left hand; S/P placement of cardiac pacemaker Start: 08-10-2023 End: 08-10-2023 ambulatory AMADOR SON [facility] Start: 08-10-2023 End: 08-10-2023 Office outpatient visit 25 minutes Amador Son MD Work Phone: [facility] Comment on above: Chronotropic incompe tence (Primary Dx); Abnormal stress test; Sinus bradycardia; Sick sinus syndrome (CMS/HCC); Essential hypertension, benign; BMI 34.0-34.9,adult; Current smoker Start: 08-05-2023 End: 08-05-2023 Subsequent hospital visit by physician Amador Son MD Work Phone: [facility] Comment on above: Sinus bradycardia (P rimary Dx); Chronotropic incompetence; Sick sinus syndrome (CMS/HCC); Other fatigue; Abnormal stress test; Dyspnea; Pacemaker Start: 07-22-2023 End: 07-22-2023 ambulatory [facility] Ambulatory Start: 07-22-2023 End: 07-22-2023 Encounter for preprocedural cardiovascular examination [facility] Ambulatory Start: 07-22-2023 End: 07-22-2023 Office outpatient new 60 minutes Amador Son MD Work Phone: [facility] Comment on above: Chronotropic incompe tence (Primary Dx); Sinus bradycardia; Establishing care with new doctor, encounter for; BMI 34.0-34.9,adult; Sick sinus syndrome (CMS/HCC); Simple chronic bronchitis (CMS/HCC); Current smoker; Other fatigue; Preoperative cardiovascular examination Start: 07-22-2023 End: 07-22-2023 Patient encounter status Amador Son MD Work Phone: [facility] Work Phone: Start: 07-13-2023 End: 07-13-2023 ambulatory [facility] Ambulatory Start: 07-13-2023 End: 07-13-2023 ambulatory [facility] Start: 10-14-2022 ambulatory NARENDRANATH LAKSHMIPATHY [...] sit 15 minutes Ishmael Simon Work Phone: [facility] 600 DO Work Phone: Start: [...] 02-16-2022 Chart Update Ishmael Simon Work Phone: [facility] 250 DO Work Phone: Start: 02-15-[address] Valentino Ty Facility:44 Start: 01-28-[address] Ismhael Simon Facility: Start: 01-28-2022 Office consultation new/estab patient 60 min Ishmael Simon Work Phone: [facility] 600 DO Work Phone: Start: 01-14-2022 End: 01-15-2022 ambulatory TERESO COLMENARES . Facility:[facility] Start: 01-01-2022 End: 01-02-[address] ISHMAEL SIMON Facility:[facility] Start: 12-15-2021 End: 12-15-[address] RICKY IBARRA . Facility:[facility] Start: 12-14-2021 Encounter for preprocedural laboratory examination DR RICKY IBARRA . [facility] Start: 12-12-2021 End: 12-13-[address] [...] . Facility: Start: 10-03-2020 End: 10-04-2020 ambulatory SIMNOE RUIZ Facility:[facility] Start: 03-26-2020 End: 04-10-2020 ambulatory JEY ELISE Facility:[facility] Start: 03-14-2020 End: 03-15-2020 ambulatory JEY ELISE Facility:[facility] Procedures Date Procedure Procedure Detail Performing Clinician Start: 05-23-2024 Ecg routine ecg w/le ast 12 lds w/i&r Amador Son MD Work Phone: Start: 05-23-2024 Program eval implant able in persn dual ld pacer Naima Wright [employer] OPERATOR VERTICAL-AUTOMATION CONSULTANT Work Phone: Start: 04-24-2024 MLR HEMOGLOBIN A1C [...] w/le ast 12 lds w/i&r Naima Wright [employer] OPERATOR VERTICAL-AUTOMATION CONSULTANT Work Phone: Start: 11-09-2023 Program eval implant able in persn dual ld pacer Ana M Kumari [employer] OPERATOR VERTICAL-AUTOMATION CONSULTANT Work Phone: Start: 09-26-2023 CARDIAC DEVICE CHECK - REMOTE NAIMA WRIGHT Start: 09-26-2023 CARDIAC DEVICE CHECK - REMOTE Amador Son MD Work Phone: Start: 08-10-2023 VASC US UPPER EXTREM ITY VENOUS DUPLEX LEFT NAIMA WRIGHT Start: 08-10-2023 Dup-scan xtr veins unilateral/limited study Naima Wright [employer] OPERATOR VERTICAL-AUTOMATION CONSULTANT Work Phone: Start: 08-05-2023 Radiologic exam ches t single view Ana M Echo [employer] OPERATOR VERTICAL-AUTOMATION CONSULTANT Work Phone: Start: 08-05-2023 Ecg routine ecg w/le ast 12 lds trcg only w/o i&r Ana M Echo [employer] OPERATOR VERTICAL-AUTOMATION CONSULTANT Work Phone: Start: 08-05-2023 Electrophysiology study Amador Son MD Work Phone: Start: 08-05-2023 Echo tthrc r-t 2d w/ wom-mode compl spec&colr d Ana M Angel [employer] OPERATOR VERTICAL-AUTOMATION CONSULTANT Work Phone: Start: 08-05-2023 Ecg routine ecg w/le ast 12 lds trcg only w/o i&r Ana M Angel APRN-AUTOMATION CONSULTANT Work Phone: Start: 08-05-2023 Basic metabolic pane l calcium total Ana M Angel [employer] OPERATOR VERTICAL-AUTOMATION CONSULTANT Work Phone: Start: 07-22-2023 CASE REQUEST EP [...] Performed By: #### V ITAD, PSASC #### [facility] [address] [place] [address] Dr. Britt Mendoza Start: 03-15-2020 ANESTH HIP ARTHROPLASTY SIMONE RUIZ Start: 03-15-2020 TOTAL HIP ARTHROPLASTY JEY ELISE Start: 03-14-2020 Antibody screen SIMONE BOLIVAR Comment on above: Performed By: #### [id number] ####[facility] Start: 08-24-2019 Colonoscopy Ihsmael faith MD Work Phone: Colonoscopy Ishmael Simon [...] Start: 11-28-2024 End: 11-28-2024 Patient encounter procedure [facility] Start: 11-21-2024 End: 11-21-2024 Patient encounter procedure 11/21/2024 8:00 AM EDT Appointment [facility] [address] [place] [address] [facility] Start: 08-04-2024 Creatinine measurement Creatinine Level [facility] Start: 08-04-2024 Echocardiography Echocardiogram [facility] Start: 08-04-2024 Potassium measurement Potassium Level [facility] Start: 07-23-2024 End: 07-23-2024 Patient encounter procedure 07/23/2024 10:15 AM EDT Office Visit [facility] [address] [place] [address] Ishmael Simon MD [address] [place] [address] [facility] Start: 06-13-2024 End: 06-13-2024 Patient encounter procedure 06/13/2024 9:10 AM EST Office Visit [place] [address] [place] [address] Valentino Ty MD [address] [facility], [address] [place] [address] [facility] Start: 05-25-2024 Urine screening for protein Diabetes: Urine Protein Screening [facility] Start: 05-23-2024 End: 05-23-2024 Patient encounter procedure [facility] Start: 05-17-2024 Glaucoma screening Diabetes: Retinopathy Screening [facility] Start: 05-11-2024 End: 11-08-2024 Cardiac Device Check - In Clinic Cardiac Device Check - In Clinic Implantable Cardiac Device Routine Sinus bradycardia Sick sinus syndrome (Multi) Chronotropic incompetence MRI safe cardiac pacemaker in situ Expected: 05/11/2024 (Approximate), Expires: 11/08/2024 [facility] Service Area Work Phone: Comment on above: Expected: 05/11/2024 (Approximate), Expi res: 11/08/2024 Start: 04-24-2024 End: 04-24-2025 Hemoglobin A1c/Hemoglobin.total in Blood Hemoglobin A1c Lab Routine Type 2 diabetes mellitus with hyperglycemia, without long-term current use of insulin ([facility]) Expected: 04/24/2024 (Approximate), Expires: 04/24/2025 [facility] Work Phone: Comment on above: Expected: 04/24/2024 (Approximate), Expi res: 04/24/2025 Start: 04-24-2024 End: 04-24-2024 Patient encounter procedure [facility] Comment on above: Arrived Start: 04-10-2024 Hemoglobin A1c measurement Diabetes: Hemoglobin A1C [facility] Start: 2024 RSV High Risk: (Elderly (60+) or Population) (1 - Risk 60-74 years 1-dose series) RSV High Risk: (Elderly (60+) or Population) (1 - Risk 60-74 years 1-dose series) [facility] Start: 02-06-2024 End: 02-05-2025 Bacteria identified in Urine by Culture Urine culture (clean catch) Microbiology Routine Dysuria Expected: 02/06/2024 (Approximate), Expires: 02/05/2025 [facility] Work Phone: Comment on above: Expected: 02/06/2024 (Approximate), Expi res: 02/05/2025 Start: 02-06-2024 End: 02-05-2025 Chlamydia trachomatis and Neisseria gonorrhoeae DNA [Identifier] in Unspecified specimen by KATT with probe detection Chlamydia DNA probe, direct Microbiology Routine Acute prostatitis Pyuria Expected: 02/06/2024 (Approximate), Expires: 02/05/2025 [facility] Comment on above: Expected: 02/06/2024 (Approximate), Expi res: 02/05/2025 Start: 02-06-2024 End: 02-05-2025 Neisseria gonorrhoeae DNA assay Gonococcus DNA, PCR Microbiology Routine Dysuria Acute prostatitis Pyuria Expected: 02/06/2024 (Approximate), Expires: 02/05/2025 [facility] Comment on above: Expected: 02/06/2024 (Approximate), [...] COVID-19 Vaccine ( season) COVID-19 Vaccine () [facility] Start: 01-08-2024 COVID-19 Vaccine () COVID-19 Vaccine () [facility] Start: 01-08-2024 Influenza vaccination [facility] Start: 11-21-2023 End: 11-21-2023 Patient encounter procedure 11/21/2023 8:50 AM EDT Office Visit [place] [address] [place] [address] Valentino Ty MD [address] [facility] 2, [address] [place] [address] [facility] Start: 11-09-2023 End: 08-04-2024 Cardiac Device Check - In Clinic [facility] Service Area Work Phone: Comment on above: Expected: 11/09/2023 (Approximate), Expi res: 08/04/2024 Start: 11-09-2023 End: 08-04-2024 XR Chest 2 Views [facility] Work Phone: Comment on above: Expected: 11/09/2023, Expires: Once for 1 Occurrenc es starting 11/09/2023 until 11/09/2023 Start: 11-09-2023 End: 11-09-2023 Patient encounter procedure [facility] Start: 11-03-2023 End: 11-03-2023 Patient encounter procedure 11/03/2023 8:50 AM EDT Office Visit [place] [address] [place] [address] Valentino Ty MD [address] [place], [place] [id number] [facility] Start: 08-12-2023 End: 08-12-2023 Clinical Support 08/12/2023 8:30 AM EDT Clinical Support [facility] [address] [place] [address] [facility] Start: 08-10-2023 Subsequent hospital visit by physician 08/10/2023 2:09 PM EDT Hospital Encounter [facility] [address] [place] [address] Localized swelling on left hand; S/P placement of cardiac pacemaker [facility] Comment on above: Localized swelling on left hand; S/P placement of cardiac pacemaker Start: 07-22-2023 End: 07-21-2025 US Heart Transthoracic Transthoracic Echo Complete Echocardiography Routine Sinus bradycardia Chronotropic incompetence Sick sinus syndrome (CMS/HCC) Other fatigue Preoperative cardiovascular examination Expected: 07/22/2023 (Approximate), Expires: 07/21/2025 [facility] Work Phone: Comment on above: Expected: 07/22/2023 (Approximate), Expi res: 07/21/2025 Start: 07-13-2023 FUV, Provider: Valentino Ty, Status: Pen, Time: 8:30 AM FUV, Provider: Valentino Ty, Status: Pen, Time: 8:30 AM [facility] 600 DO Work Phone: Start: 01-07-2023 COVID-19 Vaccine ( season) COVID-19 Vaccine ( season) [facility] Start: 01-07-2023 Influenza vaccination Influenza Vaccine (#1) [facility] Start: 07-14-2022 FUV, Provider: Valentino Ty, Status: Pen, Time: 10:40 AM FUV, Provider: Valentino Ty, Status: Pen, Time: 10:40 AM [facility] 600 DO Work Phone: Start: 02-15-2022 STRESS JUICE, Provider: CARLITO MCKEONI NUCLEAR 01,[id number], Status: Pen, Time: 2:00 PM STRESS JUICE, Provider: CARLITO MCKEONI NUCLEAR 01,[id number], Status: Pen, Time: 2:00 PM [facility] 600 DO Work Phone: Start: 02-21-2014 Zoster Vaccines (1 of 2) Zoster Vaccines (1 of 2) [facility] Start: 02-21-1986 DTaP/Tdap/Td Vaccines (1 - Tdap) DTaP/Tdap/Td Vaccines (1 - Tdap) [facility] Start: 02-21-1983 Hepatitis B Vaccines (1 of 3 - 19+ 3-dose series) Hepatitis B Vaccines (1 of 3 - 19+ 3-dose series) [facility] Start: 02-21-1983 Pneumococcal vaccination Pneumococcal Vaccine (1 of 2 - PCV) [facility] Start: 02-21-1983 Urine screening for protein Diabetes: Urine Protein Screening [facility] Start: 02-21-1982 Diabetes mellitus screening Diabetes Screening [facility] Start: 02-21-1982 Hepatitis C screening Hepatitis C Screening [facility] Start: 02-21-1974 Diabetic foot examination Diabetes: Foot Exam [facility] Start: 02-21-1974 Glaucoma screening Diabetes: Retinopathy Screening [facility] Start: 02-21-1970 Pneumococcal Vaccine: Pediatrics (0 to 5 Years) and At-Risk Patients (6 to 64 Years) (1 - PCV) Pneumococcal Vaccine: Pediatrics (0 to 5 Years) and At-Risk Patients (6 to 64 Years) (1 - PCV) [facility] Start: 02-21-1970 Pneumococcal Vaccine: Pediatrics (0 to 5 Years) and At-Risk Patients (6 to 64 Years) (1 of 2 - PCV) Pneumococcal Vaccine: Pediatrics (0 to 5 Years) and At-Risk Patients (6 to 64 Years) (1 of 2 - PCV) [facility] Start: 02-21-1965 MMR Vaccines (1 of 1 - Standard series) MMR Vaccines (1 of 1 - Standard series) [facility] Start: 1964 COVID-19 Vaccine (#1) COVID-19 Vaccine (#1) [facility] Start: 1964 Annual wellness visit Welcome to Medicare Visit [facility] Start: 1964 Creatinine measurement Creatinine Level [facility] Start: 1964 Echocardiography Echocardiogram [facility] Start: 1964 Hemoglobin A1c measurement Diabetes: Hemoglobin A1C [facility] Start: 1964 Hepatitis B Vaccines (1 of 3 - 3-dose series) Hepatitis B Vaccines (1 of 3 - 3-dose series) [facility] Start: 1964 HIV screening HIV Screening [facility] Start: 1964 Lipid panel Lipid Panel [facility] Start: 1964 Medicare Annual Wellness (AWV) Medicare Annual Wellness (AWV) [facility] Start: 1964 Medicare Annual Wellness Visit Medicare Annual Wellness Visit (AWV) [facility] Start: 1964 Potassium measurement Potassium Level [facility] Start: 1964 Screening for malignant neoplasm of colon [facility] Start: 1964 Urine screening for protein Diabetes: Urine Protein Screening [facility] End: 07-21-2024 Basic metabolic 2000 panel - Serum or Plasma Basic Metabolic Panel Lab Routine Sinus bradycardia Chronotropic incompetence Sick sinus syndrome (CMS/HCC) Other fatigue 1 Occurrences starting 07/22/2023 until 07/21/2024 [facility] Work Phone: Comment on above: 1 Occurrences starting 07/22/2023 until 07/21/2024 End: 11-20-2025 Cardiac Device Check - In Clinic Cardiac Device Check - In Clinic Implantable Cardiac Device Routine Cardiac pacemaker in situ 1 Occurrences starting 05/23/2024 until 11/20/2025 [facility] Service Area Work Phone: Comment on above: 1 Occurrences starting 05/23/2024 until 11/20/2025 End: 01-25-2024 Cardiac Device Check - Remote [facility] Work Phone: Comment on above: Once for 1 Occurrences starting 01/25/20 24 until 01/25/2024 End: 11-20-2024 Cardiac Device Check - Remote Cardiac Device Check - Remote Implantable Cardiac Device Routine Cardiac pacemaker in situ 52 Occurrences starting 05/23/2024 until 11/20/2024 [facility] Work Phone: Comment on above: 52 Occurrences starting 05/23/2024 until 11/20/2024 End: 07-21-2024 CBC panel - Blood by Automated count CBC Lab Routine Sinus bradycardia Chronotropic incompetence Sick sinus syndrome (CMS/HCC) Other fatigue 1 Occurrences starting 07/22/2023 until 07/21/2024 [facility] Work Phone: Comment on above: 1 Occurrences starting 07/22/2023 until 07/21/2024 ECG 12 lead (Clinic Performed) ECG 12 lead (Clinic Performed) ECG Routine Sinus bradycardia 11/09/2023 10:38 AM EDT [facility] Work Phone: ECG 12 lead STAT ECG 12 lead STA T ECG STAT 08/05/2023 12:30 PM EDT [facility] Work Phone: ECG 12 lead STAT ECG 12 lead STA T ECG STAT 08/05/2023 5:12 PM EDT [facility] Work Phone: PPM IMPLANT DC PPM IMPLANT DC S inus bradycardia Chronotropic incompetence Sick sinus syndrome (CMS/HCC) Other fatigue [facility] Work Phone: End: 07-21-2024 Prothrombin time (PT) Protime-INR Lab Routine Sinus bradycardia Chronotropic incompetence Sick sinus syndrome (CMS/HCC) Other fatigue 1 Occurrences starting 07/22/2023 until 07/21/2024 [facility] Work Phone: Comment on above: 1 Occurrences starting 07/22/2023 until 07/21/2024 Payers Date Payer Category Payer Self-pay 2023 Medicare [id number] 2023 Medicare (Managed Care) 1.2. [id number] 2023 Private Health Insurance [id number] 2023 Private Health Insurance 1965 Unknown [id number] 2.16.840.1.760319.3.579.2.647 1964 Unknown [id number] 2.16.840.1.556680.3.579.2.647 1964 Unknown [id number] 2.16.840.1.076854.3.579.2.647 1964 Unknown [id number] 2.16.840.1.637560.3.579.2.1068 1964 Unknown [id number] 2.16.840.1.861878.3.579.2.356 1964 Unknown [id number] 2.16.840.1.942029.3.579.2.356 1964 Unknown [id number] 2.16.840.1.269800.3.579.2.593 1964 Unknown [id number] 2.16.840.1.409053.3.579.2.593 1964 Unknown [id number] 2.16.840.1.988557.3.579.2.593 1964 Unknown [id number] 2.16.840.1.868984.3.579.2.593 1964 Unknown [id number] 2.16.840.1.567763.3.579.2.593 1964 Unknown [id number] 2.16.840.1.113276.3.579.2.593 1964 Unknown [id number] 2.16.840.1.899978.3.579.2.593 1964 Unknown [id number] 2.16.840.1.177898.3.579.2.593 1964 Unknown [id number] 2.16.840.1.235242.3.579.2.593 1964 Unknown [id number] 2.16.840.1.354910.3.579.2.593 1964 Unknown [id number] 2.16.840.1.413562.3.579.2.593 1964 Unknown [id number] 2.16.840.1.373451.3.579.2.593 1964 Unknown [id number] 2.16.840.1.271039.3.579.2.593 1964 Unknown [id number] 2.16.840.1.030588.3.579.2.593 1964 Unknown [id number] 2.16.840.1.512159.3.579.2.593 1964 Unknown [id number] 2.16.840.1.532218.3.579.2.593 1964 Unknown [id number] 2.16.840.1.655201.3.579.2.593 1964 Unknown [id number] 2.16.840.1.503196.3.579.2.593 1964 Unknown [id number] 2.16.840.1.282962.3.579.2.593 1964 Unknown [id number] 2.16.840.1.192923.3.579.2.593 1964 Unknown [id number] 2.16.840.1.263360.3.579.2.593 1964 Unknown [id number] 2.16.840.1.681821.3.579.2.593 1964 Unknown [id number] 2.16.840.1.923654.3.579.2.593 1964 Unknown [id number] 2.16.840.1.072653.3.579.2.593 1964 Unknown [id number] 2.16.840.1.302605.3.579.2.1259 1964 Unknown [id number] 2.16.840.1.784729.3.579.2.1259 1964 Unknown [id number] 2.16.840.1.779292.3.579.2.1259 1964 Unknown [id number] 2.16.840.1.909056.3.579.2.1259 1964 Unknown [id number] 2.16.840.1.478454.3.579.2.196 1964 Unknown [id number] 2.16.840.1.633186.3.579.2.1244 1964 Unknown [id number] 2..840.1.580045.3.579.2.1244 1964 Unknown [id number] 2.16.840.1.557928.3.579.2.1244 1964 Unknown [id number] 2.16.840.1.166375.3.579.2.1244 1964 Unknown [id number] 2.16.840.1.415432.3.579.2.1244 1964 Unknown [id number] 2.16.840.1.945569.3.579.2.1244 1964 Unknown [id number] 2.16.840.1.767148.3.579.2.1244 1964 Unknown [id number] 2.16.840.1.626156.3.579.2.1244 1964 Unknown [id number] 2.16.840.1.600360.3.579.2.1246 1964 Unknown [id number] 2.16.840.1.070077.3.579.2.1246 1964 Unknown [id number] 2.16.840.1.260077.3.579.2.1246 1964 Unknown [id number] 2.16.840.1.813877.3.579.2.1246 1964 Unknown [id number] 2.16.840.1.762059.3.579.2.1246 1964 Unknown [id number] 2.16840.1.598999.3.579.2.124 1964 Unknown [id number] 2.16.840.1.216526.3.579.2.1246 1959 Medicaid [id number] 1960 Medicare [id number] Unknown [id number] Unknown Unknown [employer] [id number] Unknown [id number] 2..840.1.861877.3.579.2.531 Unknown [id number] 2.16.840.1.640784.3.579.2.531 Social History Date Type Detail Facility Start: 07-13-2023 End: 05-23-2024 No alcohol use No alcohol use [facility] Comment on above: 1 pack daily; Start: 07-13-2023 End: 11-09-2023 Tobacco smoking status NHIS Smokes tobacco daily [facility] History of tobacco use Cigarette Smoker [facility] Work Phone: Start: 07-13-2023 End: 11-09-2023 Tobacco use and exposure Smokeless tobacco non-user [facility] Work Phone: Start: 07-22-2023 End: 05-23-2024 Alcohol intake Lifetime non-drinker (finding) [facility] Work Phone: Start: 07-13-2023 End: 05-23-2024 Tobacco use panel [facility] Start: 1965 Sex Assigned At Not on file [facility] Work Phone: Start: 07-12-2023 End: 05-23-2024 Exposure to SARS-CoV-2 (event) Not sure [facility] Frequency of Social Gatherings with Friends and Family Not on file [facility] Do you belong to any clubs or organizations such as adventism groups, unions, fraternal or athletic groups, or [...] Healthcare Start: 07-06-2019 Tobacco smoking stat us IDIS Smoker (finding) [facility] Start: 03-17-2024 End: 03-28-2024 Sex Male (finding) [facility] Start: 1965 Sex Assigned At Male F [facility] Medical Equipment Procedure Code Equipment Code Equipment Origin al Text Equipment Identifier Dates Lead, Capsurefix Novus, 52 Cm - [id number] Start: 08-05-2023 Lead, Capsurefix Novus, 45 Cm - [id number] Start: 08-05-2023 Pacemaker, Dual Chamber, Kyle Mri Xt Dr - [id number] Start: 08-05-2023 Clinical Notes 08-31-2020 to [...] A DAY cetirizine (ZYRTEC) 10 mg, Nightly ykqfqvxuqyy-ebkhchdxv-ozkpjqaz (TRELEGY-ELLIPTA) 100-62.5-25 mcg blister with device 1 [...] bradycardia status post dual-chamber pacemaker implant ([employer]tronic Kyle XT DR MRI) on August 05, 2023. [...] prepare this document. documented in this encounter [facility] Work Phone: 05-23-2024 Instructions Jazz Flynn [...] AMADOR SON MD documented in this encounter [facility] Work Phone: 04-24-2024 History of Present illness Narrative Associated Problem(s): Class 2 severe obesity due to excess calories with serious comorbidity and body mass index (BMI) of 37.0 to 37.9 in adult (CMS/HCC) Weight up 28 pounds in past year. Add ozempic. Associated Problem(s): Essential hypertension, benign (CMS/[facility]) BP controlled and monitor PRN. Associated Problem(s): Type 2 diabetes mellitus with hyperglycemia, without long-term current use of insulin ([facility]) Not checking BS and due [...] Items Addressed This Visit Essential hypertension, benign ([facility]) BP controlled and monitor PRN. Type 2 diabetes mellitus with hyperglycemia, without long-term current use of insulin ([facility]) Not checking BS and due for A1C. Add ozempic. Relevant Medications semaglutide (Ozempic, 0.25 or 0.5 MG/DOSE,) 2 MG/1.5ML solution pen-injector Other Relevant Orders Hemoglobin A1c Class 2 severe obesity due to excess calories with serious comorbidity and body mass index (BMI) of 37.0 to 37.9 in adult ([facility]) Weight up 28 pounds in past year. [...] daily Aspirin therapy. documented in this encounter [facility] 02-06-2024 History of Present illness Narrative [...] DNA probe, direct documented in this encounter [facility] 01-13-2024 History of Present illness Narrative [...] is alert. Assessment/Plan documented in this encounter [facility] 11-09-2023 History of Present illness Narrative [...] DAY cetirizine (ZYRTEC) 10 mg, oral, Nightly gpafsvimkfh-rthqqjbti-apzejtve (TRELEGY-ELLIPTA) 100-62.5-25 mcg blister with device 1 [...] 68 bpm, prolonged AV conduction with a WV interval of 220 ms, QRS durations 100 [...] sinus bradycardia status post dual-chamber pacemaker implant (Amvona Kyle XT DR MRI) on August 05, 2023. [...] prepare this document. documented in this encounter [facility] Work Phone: 08-10-2023 History of Present [...] some point he had some evaluation in [place] that shows no significant obstructive coronary disease [...] night however but few episodes in the police guard hours were also noted 5. No symptoms [...] Diagnosis Date Arrhythmia CHF (congestive heart failure) ([facility]) COPD (chronic obstructive pulmonary disease) ([facility]) Hypertension Social History Social History [...] breakfast cetirizine (ZYRTEC) 10 mg, oral, Nightly kzwmebbngjs-fnrtvmhlg-fpzrbloy (TRELEGY-ELLIPTA) 100-62.5-25 mcg blister with device 1 [...] prepare this document. documented in this encounter [facility] Work Phone: 08-10-2023 Instructions Vreo Mccarthy LPN - 08/10/2023 12:45 PM EDT [...] Amador Son MD documented in this encounter [facility] Work Phone: 08-05-2023 Nurse Note Patient discharge instructions reviewed with patient and , verbalized understanding. Lt chest dressing remains dry/intact, no hematoma, no ecchymosis. Patient able to teachback site care instructions, follow up appointments. IV x2 removed and patient discharged to home via w/c. [facility] 08-05-2023 Nurse Note Patient discharge instructions [...] and ice pack over site. Sterling from [employer] in room speaking to Pt and SO educating on home device monitor. Pt returned to room after echocardiogram. Denies needs at this time. documented in this encounter [facility] Work Phone: 08-05-2023 Nurse Note Patient sitting up in chair, denies any complaints of incisional pain. Lt upper chest incision remains dry/intact. Will begin discharge instructions. [facility] Work Phone: 08-05-2023 Nurse Note Patient ambulated to , gait steady. Pacer rep has already met with patient and . Lt upper chest dressing remains dry/intact. Lt arm in immobilizer and ice pack over site. [facility] Work Phone: 08-05-2023 Note Formatting of this n ote might be different from the original. Post EKG and CXR performed at bedside. Pt denies needs at this time. Left chest remains soft and stable with no hematoma or oozing. [facility] Work Phone: 08-05-2023 Miscellaneous Notes Post [...] discussed with patient. documented in this encounter [facility] Work Phone: 08-05-2023 Hospital Discharge instructions Ana M Kumari, [employer] SET UP OPERATOR VERTICAL-AUTOMATION CONSULTANT - 08/05/2023 5:00 PM EDT Images from [...] your arm above shoulder level. Do not pepper picker items that weigh greater than 10 [...] have been instructed by the device company containers sales representative regarding remote home monitoring. There are [...] sent through Care Everywhere.Pacemaker Insertion Discharge Instructions (Irish)documented in this encounter [facility] Work Phone: 08-05-2023 Note Formatting of [...] Pt denies further needs at this time. [facility] Work Phone: 08-05-2023 Note Table formatting [...] of infection. The patient should call the farmworkers immediately if symptoms recur, or for any problems. The patient has been instructed accordingly. 2. Follow up with [facility] office in seven days for [...] Device implanted Device implanted Medtronic dual-chamber pacemaker Kyle XT DR MRI model number W1 DR 017 number [id number]. Right atrial lead Medtronic 5076/45 serial number [id number] 8 mm 101V. Imp (more content not included)... SYNGO_SECTRA_CARDIOLAB_XP ER 08-05-2023 Note Formatting of this n ote might be different from the original. Sedation Plan ASA 2 Mallampati class: II. Risks, benefits, and alternatives discussed with patient. [facility] Work Phone: 08-05-2023 Attending History and [...] some point he had some evaluation in [place] that shows no significant obstructive coronary disease [...] night however but few episodes in the police guard hours were also noted 5. No symptoms [...] breakfast cetirizine (ZYRTEC) 10 mg, oral, Nightly qgtamhvbxgr-gijaftqku-ltiwzgpu (TRELEGY-ELLIPTA) 100-62.5-25 mcg blister with device 1 [...] software was utilized to prepare this document. [facility] Work Phone: 08-05-2023 History and physical [...] some point he had some evaluation in [place] that shows no significant obstructive coronary disease [...] night however but few episodes in the police guard hours were also noted 5. No symptoms [...] breakfast cetirizine (ZYRTEC) 10 mg, oral, Nightly lyfprmohweq-whgmeliqs-jjrhjsju (TRELEGY-ELLIPTA) 100-62.5-25 mcg blister with device 1 [...] prepare this document. documented in this encounter [facility] Work Phone: 08-05-2023 Nurse Note Sterling from [employer] in room speaking to Pt and SO educating on home device monitor. [facility] 08-05-2023 Nurse Note Pt returned to room after echocardiogram. Denies needs at this time. [facility] Work Phone: 07-22-2023 History of Present [...] some point he had some evaluation in [place] that shows no significant obstructive coronary disease [...] night however but few episodes in the police guard hours were also noted 5. No symptoms [...] breakfast cetirizine (ZYRTEC) 10 mg, oral, Nightly riprgwcuthl-uviqysmww-mzqwcqgo (TRELEGY-ELLIPTA) 100-62.5-25 mcg blister with device 1 [...] prepare this document. documented in this encounter [facility] Work Phone: 07-22-2023 Instructions Jazz Flynn [...] AMADOR SON MD documented in this encounter [facility] Work Phone: 07-20-2022 Note CONSULTATION PROCEDURE [...] right medial portion of his leg. [facility] 05-07-2022 Note CONSULTATION CONSULTATION DATE: 05/07/2022 [...] three months' time unless otherwise indicated. [facility] 01-14-2022 Note CONSULTATION CONSULTATION DATE: 01/14/2022 [...] it was recommended that he see a lining feller blindstitch, which he did do. He did a Holter monitor study and is following up with his lining feller blindstitch on 01/28/2022. Current medications include gabapentin 300 [...] agrees with the plan of care. [facility] 11-19-2021 Note CONSULTATION CONSULTATION DATE: 11/19/2021 [...] to S1. Activities such as standing, walking, police guard and evening hours, stairs, bending and physical [...] be followed up in the clinic post-procedure. [facility] Signed and Approved by: TERESO COLMENARES . 11/27/2021 14:13:00 [facility] 10-22-2021 Note CONSULTATION CONSULTATION DATE: 10/22/2021 [...] patient agrees with the plan of care. [facility] Signed and Approved by: TERESO COLMENARES . 11/04/2021 16:23:00 [facility] 10-01-2021 Note CONSULTATION CONSULTATION DATE: 10/01/2021 [...] shape. He has seen Dr. Nunn in [place] in the past regarding his back, and [...] Patient agrees with the plan of care. [facility] Signed and Approved by: TERESO COLMENARES . 10/08/2021 16:01:00 [facility] 08-31-2020 Note Microbiology PROCEDURE: Blood Culture [...] Locations R1: This [facility] was performed at: [facility], [address] [place] [address], [id number] , , [facility] Comment on above: Performed By: #### 1 [id number] ####[place] [address] 08-31-2020 Note Microbiology PROCEDURE: Blood Culture Charcoal [...] Locations R1: This test was performed at: [facility], [address] [place] [address], [facility] , , [facility] Comment on above: Performed By: #### 1 [id number] ####[facility] [address] [place] [address] Evaluation note Diagnosis 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 Sinus bradycardia Other specified cardiac dysrhythmias Establishing care with new doctor, encounter for BMI 34.0-34.9,adult Sick sinus syndrome (CMS/HCC) Sinoatrial node dysfunction Simple chronic bronchitis (CMS/HCC) Simple chronic bronchitis Current smoker Other fatigue Preoperative cardiovascular examination Pre-operative cardiovascular examination documented in this encounter [facility] Work Phone: Evaluation note* Diagnosis Other [...] dysfunction Other fatigue documented in this encounter [facility] Work Phone: Evaluation note* Diagnosis Localized swelling on left hand S/P placement of cardiac pacemaker 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 Abnormal stress test Other nonspecific abnormal cardiovascular system function study Sinus bradycardia Other specified cardiac dysrhythmias Sick sinus syndrome (CMS/HCC) Sinoatrial node dysfunction Essential hypertension, benign BMI 34.0-34.9,adult Current smoker documented in this encounter [facility] Work Phone: Evaluation note* Diagnosis Localized swelling on left hand S/P placement of cardiac pacemaker documented in this encounter [facility] Work Phone: Evaluation note* Diagnosis Cardiac pacemaker in situ Sinoatrial node dysfunction (Multi) Sinoatrial node dysfunction documented in this encounter [facility] Work Phone: Evaluation note* Diagnosis Cardiac pacemaker in situ Sinoatrial node dysfunction (Multi) Sinoatrial node dysfunction documented in this encounter [facility] Work Phone: Evaluation note* Diagnosis Type [...] lumbosacral intervertebral disc documented in this encounter [facility] HealthcareEvaluation noteNo assessment information [facility] Work Phone: Evaluation note* Diagnosis MRI [...] (pediatric) Current smoker documented in this encounter [facility] Work Phone: Evaluation note* Diagnosis Pacemaker Cardiac pacemaker in situ documented in this encounter [facility] Work Phone: Evaluation note* Diagnosis Type [...] hyperglycemia, without long-term current use of insulin ([facility]) Essential hypertension, benign (CMS/HCC) Essential hypertension, benign Class 2 severe obesity due to excess calories with serious comorbidity and body mass index (BMI) of 37.0 to 37.9 in adult ([facility]) documented in this encounter [facility] HealthcareEvaluation note* Diagnosis Cardiac pacemaker in situ Sinoatrial node dysfunction (Multi) Sinoatrial node dysfunction documented in this encounter [facility] Work Phone: Evaluation note* Diagnosis Degeneration of lumbar intervertebral disc Degeneration of lumbar or lumbosacral intervertebral disc documented in this encounter [facility] HealthcareEvaluation note* Diagnosis Type 2 diabetes [...] (BMI) 35.0-35.9, adult documented in this encounter [facility] HealthcareEvaluation note* Diagnosis Degeneration of lumbar intervertebral disc Degeneration of lumbar or lumbosacral intervertebral disc documented in this encounter [facility] HealthcareEvaluation note* Diagnosis Other intervertebral disc degeneration, lumbar region Degeneration of lumbar or lumbosacral intervertebral disc documented in this encounter [facility] HealthcareEvaluation note* Diagnosis Dysuria- Primary Acute prostatitis Pyuria Other nonspecific finding on examination of urine documented in this encounter [facility] HealthcareEvaluation note* Diagnosis Type 2 diabetes [...] hyperglycemia, without long-term current use of insulin ([facility]) Essential hypertension, benign ([facility]) Essential hypertension, benign Class 2 severe obesity due to excess calories with serious comorbidity and body mass index (BMI) of 37.0 to 37.9 in adult ([facility]) Degeneration of lumbar intervertebral disc Degeneration of lumbar or lumbosacral intervertebral disc documented in this encounter [facility] HealthcareEvaluation note* Diagnosis Cardiac pacemaker in situ- Primary Sick sinus syndrome (Multi) Sinoatrial node dysfunction MRI safe cardiac pacemaker in situ Abnormal EKG Nonspecific abnormal electrocardiogram (ECG) (EKG) Chronotropic incompetence Other specified conduction disorder Sinoatrial node dysfunction (Multi) Sinoatrial node dysfunction Sinus bradycardia Other specified cardiac dysrhythmias Current smoker BMI 37.0-37.9, adult documented in this encounter [facility] Work Phone: Evaluation note* Diagnosis Sinus bradycardia Other specified cardiac dysrhythmias Sick sinus syndrome (Multi) Sinoatrial node dysfunction Chronotropic incompetence Other specified conduction disorder MRI safe cardiac pacemaker in situ documented in this encounter [facility] Work Phone: History of Present illness Narrative* Patient is here for cardiovascular evaluation for second opinion in regard to documents resting sinus bradycardia. The patient is 56-year-old with history of tobacco use and COPD was evaluated recently due to shortness of breath and his stress test showed questionable inferior wall ischemia. This led to a cardiac evaluation in [place] and its not clear to me whether [...] recent ischemic evaluation * 5 follow-up in [address] [place], [place] [address] [facility] Work Phone: History of Present illness Narrative* Patient is here for cardiovascular evaluation for second opinion in regard to documents resting sinus bradycardia. The patient is 56-year-old with history of tobacco use and COPD was evaluated recently due to shortness of breath and his stress test showed questionable inferior wall ischemia. This led to a cardiac evaluation in [place] and its not clear to me whether [...] ischemic evaluation * 5 follow-up in 6 [facility] Work Phone: History of Present illness Narrative* Patient is here for cardiovascular evaluation for second opinion in regard to documents resting sinus bradycardia. The patient is 56-year-old with history of tobacco use and COPD was evaluated recently due to shortness of breath and his stress test showed questionable inferior wall ischemia. This led to a cardiac evaluation in [place] and its not clear to me whether [...] ischemic evaluation * 5 follow-up in 6 [facility] Work Phone: History of Present [...] ischemic evaluation. He underwent cardiac catheterization in [place] which showed no significant obstructive disease * [...] EKG or earlier if the need arise [facility] 600 DO Work Phone: Reason for visit [...] Date Expiration Date Visits Requested Visits Authorized [id number] Pending Review Perform Procedure 11/09/2023 11/08/2024 1 1 [facility] Work Phone: Summary Purpose Family History [...] Preoperative cardiovascular examination Procedures Transthoracic Echo Complete [place] ECHO TTHRC R-T 2D W/WOM-MODE COMPL SPEC&COLR D Amador Son MD [address] [address] Referral ID Status Reason Start Date Expiration Date Visits Requested Visits Authorized [id number] Pending Review Perform Procedure 07/22/2023 07/21/2024 1 1 Specialty Diagnoses / Procedures Referred By Contac t Referred To Contact Diagnoses Sinus bradycardia Establishing care with new doctor, encounter for Procedures ECG 12 lead (Clinic Performed) Amador Son MD [address] [address] Referral ID Status Reason Start Date Expiration Date V isits Requested Visits Authorized [id number] Authorized 07/22/2023 07/21/2024 1 1 Specialty Diagnoses / Procedures Referred By Contac t Referred To Contact Radiology Diagnoses Pacemaker Procedures XR chest 2 views Ana M Kumari, [employer] SET UP OPERATOR VERTICAL-AUTOMATION CONSULTANT [address] [facility], [address] [address] Referral ID Status Reason Start Date Expiration Date Visits Requested Visits Authorized [id number] Authorized Perform Procedure 08/05/2023 08/04/2024 1 1 Specialty Diagnoses / Procedures Referred By Contac t Referred To Contact Cardiology Diagnoses Pacemaker Procedures Cardiac Device Check - In Clinic Ana M Kumari APRN-AUTOMATION CONSULTANT [address] [facility], Aditya [address] [place] [address] Referral ID Status Reason Start Date Expiration Date Visits Requested Visits Authorized [id number] Pending Review Perform Procedure 08/05/2023 08/04/2024 1 1 Specialty Diagnoses / Procedures Referred By Contac t Referred To Contact Cardiology Diagnoses Localized swelling on left hand S/P placement of cardiac pacemaker Procedures Vascular US upper extremity venous duplex left [place], Naima E, [employer] SET UP OPERATOR VERTICAL-AUTOMATION CONSULTANT [address] [facility], [address] [address] Referral ID Status Reason Start Date Expiration Date Visits Requested Visits Authorized [id number] Authorized Perform Procedure 08/09/2023 08/08/2024 1 1 Specialty Diagnoses / Procedures Referred By Contac t Referred To Contact Cardiology Diagnoses Cardiac pacemaker in situ Sinoatrial node dysfunction (Multi) Procedures Cardiac Device Check - Remote Amador Son MD [address] [address] Referral ID Status Reason Start Date Expiration Date Visits Requested Visits Authorized [id number] Pending Review Perform Procedure 08/08/2023 08/07/2024 1 1 Specialty Diagnoses / Procedures Referred By Contac t Referred To Contact Cardiology Diagnoses Sinus bradycardia Sick sinus syndrome (Multi) Chronotropic incompetence MRI safe cardiac pacemaker in situ Procedures Cardiac Device Check - In Clinic Naima Wright [employer] SET UP OPERATOR VERTICAL-AUTOMATION CONSULTANT [address] [address] Referral ID Status Reason Start Date Expiration Date Visits Requested Visits Authorized [id number] Pending Review Perform Procedure 11/09/2023 11/08/2024 1 1 Specialty Diagnoses / Procedures Referred By Contac t Referred To Contact Cardiology Diagnoses Sick sinus syndrome (Multi) MRI safe cardiac pacemaker in situ Procedures Follow Up In Cardiology Naima Wright [employer] UP OPERATOR VERTICAL-AUTOMATION CONSULTANT [address] [facility], [address] [address] Amador Son MD [address] [address] Referral ID Status Reason Start Date Expiration Date V isits Requested Visits Authorized [id number] Authorized 11/09/2023 11/08/2024 1 1 Specialty Diagnoses / Procedures Referred By Contac t Referred To Contact Diagnoses Sinus bradycardia Procedures ECG 12 lead (Clinic Performed) Naima Wright [employer] UP OPERATOR VERTICAL-AUTOMATION CONSULTANT [address] [facility], Adity[address] [place] [address] Referral ID Status Reason Start Date Expiration Date V isits Requested Visits Authorized [id number] Authorized 11/09/2023 11/08/2024 1 1 Chief Complaint [...] section and content) DATE CREATED AUTHOR 03/06/2021 [facility] DATE CREATED AUTHOR AUTHOR'S ORGANIZ ATION 03/12/2021 [facility] DATE CREATED AUTHOR AUTHOR'S ORGANIZ ATION 02/16/2022 [facility] DATE CREATED AUTHOR AUTHOR'S ORGANIZ ATION 07/16/2022 [facility] DATE CREATED AUTHOR AUTHOR'S ORGANIZ ATION 07/16/2022 [facility] DATE CREATED AUTHOR AUTHOR'S ORGANIZ ATION 09/17/[address] [facility] DATE CREATED AUTHOR AUTHOR'S ORGANIZ ATION 04/03/2024 [facility] DATE CREATED AUTHOR AUTHOR'S ORGANIZ ATION 04/27/2024 [facility] EPIC DATE CREATED AUTHOR AUTHOR'S ORGANIZ ATION 04/30/2024 [facility] DATE CREATED AUTHOR AUTHOR'S ORGANIZ ATION 05/26/2024 [facility] DATE CREATED AUTHOR AUTHOR'S ORGANIZ ATION 05/26/2024 [facility] Reason for Visit (unrecogniz ed section and content) Reason Comments New Patient Visit Pt is here today as a new patient from Dr. Ty Specialty Diagnoses / Procedures Referred By Isela mckay Referred To Contact Cardiology Diagnoses Sinus bradycardia Valentino Ty MD [address] [facility], [address] [place] [address] Amador Son MD [address] [facility], [facility] [address] [place] [address] Referral ID Status Reason Start Date Expiration Date Visits Requested Visits Authorized [id number] Authorized Specialty Services Required 07/15/2023 07/14/2024 1 1 Specialty Diagnoses / Procedures Referred By Contac t Referred To Contact Diagnoses Sinus bradycardia Chronotropic incompetence Sick sinus syndrome (CMS/HCC) Other fatigue Sinus bradycardia [R00.1] Chronotropic incompetence [I45.89] Sick sinus syndrome (CMS/HCC) [I49.5] Other fatigue [R53.83] Procedures W[place] INS NEW/RPLCMT PRM PM W/TRANSV ELTRD ATRIAL&VENT PPM IMPLANT DUAL Amador Son MD 254 [facility] [address] [place] [address] [address] [place] [address] Referral ID Status Reason Start Date Expiration Date Visits Re quested Visits Authorized [id number] 1 1 Reason Comments Wound Check Patient is having sw elling in his right hand Specialty Diagnoses / Procedures Referred By Isela t Referred To Contact Cardiology Diagnoses Localized swelling on left hand S/P placement of cardiac pacemaker Procedures Vascular US upper extremity venous duplex left Naima Wright E, [employer] SET UP OPERATOR VERTICAL-AUTOMATION CONSULTANT [address] [facility], [facility] [address] [place] [address] Referral ID Status Reason Start Date Expiration Date Visits Requested Visits Authorized [id number] Authorized Perform Procedure 08/09/2023 08/08/2024 1 1 Specialty Diagnoses / Procedures Referred By Katyac t Referred To Contact Cardiology Diagnoses Cardiac pacemaker in situ Sinoatrial node dysfunction (Multi) Procedures Cardiac Device Check - Remote Amador Son MD [address] [place] [address] [address] [place] [address] Referral ID Status Reason Start Date Expiration Date Visits Requested Visits Authorized [id number] Pending Review Perform Procedure 08/08/2023 08/07/2024 1 1 Reason Onset Date Comments Med Refill 03/01/2024 Reason Onset Date Comments Med Refill 03/30/2024 Reason Comments Follow-up Pt is here today fol lowing up with device check Specialty Diagnoses / Procedures Referred By Contac t Referred To Contact Diagnoses Sinus bradycardia Procedures ECG 12 lead (Clinic Performed) Naima Wright, [facility] [address] [facility], [address] [address] Referral ID Status Reason Start Date Expiration Date V isits Requested Visits Authorized [id number] Authorized 11/09/2023 11/08/2024 1 1 Specialty Diagnoses / Procedures Referred By Contac t Referred To Contact Cardiology Diagnoses Pacemaker Procedures Cardiac Device Check - In Clinic Ana M Kumari, [facility] [address] [facility], [address] [address] Referral ID Status Reason Start Date Expiration Date Visits Requested Visits Authorized [id number] Pending Review Perform Procedure 08/05/2023 08/04/2024 1 1 Specialty Diagnoses / Procedures Referred By Contac t Referred To Contact Radiology Diagnoses Pacemaker Procedures XR chest 2 views Ana M Kumari, [facility] [address] [facility], [address] [address] Referral ID Status Reason Start Date Expiration Date Visits Requested Visits Authorized [id number] Authorized Perform Procedure 08/05/2023 08/04/2024 1 1 [...] Procedures Follow Up In Cardiology Naima Wright, [employer] OPERATOR VERTICAL-AUTOMATION CONSULTANT Phone: tel: fax: Amador Son MD [address] [place] [address] Phone: tel: fax: Referral ID Status Reason Start Date Expiration Date V isits Requested Visits Authorized [id number] Authorized 11/09/2023 11/08/2024 1 1 Care Teams (unrecognized sec tion and content) Clinical Data Research Relationship Specialty Start Date End Date Ishmael Simon MD [address] [place] [address] PCP - General Family Medicine 06/29/23 Clinical Data Research Relationship Specialty Start Date End Date Ishmael Simon MD [address] [place] [address] PCP - General Family Medicine 06/29/23 Clinical Data Research Relationship Specialty Start Date End Date Ishmael Simon MD [address] [place] [address] PCP - General Family Medicine 06/29/23 Clinical Data Research Relationship Specialty Start Date End Date Ishmael Simon MD [address] [place] [address] PCP - General Family Medicine 06/29/23 Clinical Data Research Relationship Specialty Start Date End Date Ishmael Simon MD PCP - General Family Medicine 06/29/23 Clinical Data Research Relationship Specialty Start Date End Date Ishmael Simon MD [address] [place] [address] PCP - General Family Medicine 06/29/23 Naima Wright, [employer] OPER[employer] V[employer]ICAL-AUTOMATION CONSULTANT [address] [facility], [address] [place] [address] Nurse Practitioner Cardiology 11/07/23 Clinical Data Research Relationship Specialty Start Date End Date Ishmael Simon MD [address] [place] [address] PCP - General Family Medicine 10/10/23 Team [...] March 27, 2024 End: March 27, 2024 Clinical Data Research Relationship Specialty Start Date End Date Ishmael Simon MD [address] [place] [place] [address] PCP - General Family Medicine 06/29/23 Naima Wright, [employer] OPERATOR VERTICAL-AUTOMATION CONSULTANT [address] [facility], [address] [place] [address] Nurse Practitioner Cardiology 11/07/23 Clinical Data Research Relationship Specialty Start Date End Date Ishmael Simon MD [address] [place] [place] [address] PCP - General Family Medicine 06/29/23 Naima Wright, [employer] OPERATOR VERTICAL-AUTOMATION CONSULTANT [address] [facility], [address] [place] [address] Nurse Practitioner Cardiology 11/07/23 Clinical Data Research Relationship Specialty Start Date End Date Ishmael Simon MD [address] [place] [address] PCP - General Family Medicine 10/10/23 Clinical Data Research Relationship Specialty Start Date End Date Ishmael Simon MD [address] [place] [address] PCP - General Family Medicine 10/10/23 Clinical Data Research Relationship Specialty Start Date End Date Ishmael Simon MD [address] [place] [address] PCP - General Family Medicine 10/10/23 Clinical Data Research Relationship Specialty Start Date End Date Ishmael Simon MD [address] [place] [address] PCP - General Family Medicine 06/29/23 Naima Wright, [employer] OPERATOR VERTICAL-AUTOMATION CONSULTANT [address] [facility], [facility] [address] [place] [address] Nurse Practitioner Cardiology 11/07/23 Clinical Data Research Relationship Specialty Start Date End Date Ishmael Simon MD [address] [place] [address] PCP - General Family Medicine 10/10/23 Clinical Data Research Relationship Specialty Start Date End Date Ishmael Simon MD [address] [place] [address] PCP - General Family Medicine 10/10/23 Clinical Data Research Relationship Specialty Start Date End Date Ishmael Simon MD [address] [place] [address] PCP - General Family Medicine 10/10/23 Clinical Data Research Relationship Specialty Start Date End Date Ishmael Simon MD [address] [place] [address] PCP - General Family Medicine 10/10/23 Clinical Data Research Relationship Specialty Start Date End Date Ishmael Simon MD [address] [place] [address] PCP - General Family Medicine 10/10/23 Clinical Data Research Relationship Specialty Start Date End Date Ishmael Simon MD [address] [place] [address] PCP - General Family Medicine 10/10/23 Clinical Data Research Relationship Specialty Start Date End Date Ishmael Simon MD [address] [place] [address] PCP - General Family Medicine 10/10/23 Clinical Data Research Relationship Specialty Start Date End Date Ishmael Simon MD [address] [place] [address] PCP - General Family Medicine 10/10/23 Clinical Data Research Relationship Specialty Start Date End Date Ishmael Simon MD [address] [place] [address] - General Family [facility] 06/29/23 Amador Son MD [address] [facility], [address] [address] Broadband Installer Electrophysiology 05/17/24 Clinical Data Research Relationship Specialty Start Date End Date Ishmael Simon MD [address] [place] [address] PCP - General [facility] Medicine 06/29/23 Amador Son MD [address] [facility], [address] [address] Broadband Installer Electrophysiology 05/17/24 Scheduled Active and Recently Administ [...] Continuous, Starting on Tue08/05/23 at 1230, Preprocedure, yardage caller to EP lab 1221 (New Bag - [...] BE BASED ON THE PRIMARY CLINICAL RECORDS. [facility] provides no warranty or guarantee of the accuracy or completeness of information in this document.
--- OUTSIDE RECORDS SUMMARY | 2024-05-28 12:07 | XMS_ITS | CCD ---
Author Organization [facility] Care Team Providers Care Shirring Machine Operator Name Role Phone SIMONE RUIZ Admitting Unavailable SIMONE RUIZ Attending Unavailable ISHMAEL SIMON Referring Unavailable ISHMAEL SIMON Primary Care Unavailable JEY ELISE Attending Unavailable JEY ELISE R Surgeon Unavailable IA Procedure Practitioner Unavailab ISHMAEL [...] vailable LAKSHMIPATHY ., NARENDRANATH Consulting Anupama vailable NADJANEE, DR ISHMAEL Rae [...] ., DR MCINTOSH Consulting Unavailable LAKSHMIPATHY ., NARENDADRIENNEATH Admitting Anupama vailable LAKSHMIPATHY ., WILDER Attending Anupama vailable NADJANEE, DR ISHMAEL Rea Primary Care Unavailable NADEREMarilee, DR ISHMAEL Rae [...] Alfred LANE, Ishmael Vallejo Primary Care Provider Goldberg-Ellacott LEATHER DRIER-DOCK GRADER, Naima E Unavailable Alfred LANE, Ishmael Primary Care Provider [phone], Ishmael Primary Care Provider Rubio MUSEUM SECURITY CHIEF-C, Danielle Priest Attending Provider Danielle Bergeron Attending Unavailable Naderer, Ishmael Primary Care Unavailable Danielle Bergeron Admitting Unavailable Danielle Bergeron Attending Unavailable Alfred, Ishmael Primary Care Unavailable Danielle Bergeron Admitting Unavailable NADERER, ISHMAEL Attending Unavailable NADERER, ISHMAEL Attending Unavailable NADERER, ISHMAEL Attending Unavailable NADERER, ISHMAEL Attending Unavailable Amy LANE, Jong Villalobos Attending Unavailable Amador Son MD Unavailable TRABOULSSI, MOURHAF Attending Unavailable [facility] Hunt SY Primary Care Unavailabl e TRABOULSSI, MOURHAF Referring Unavailable NADERER, ISHMAEL COEUR D ALENE Primary Care Unavailabl e SHAN SONTO Imelda Attending Unavailable NADERER, [facility] Primary Care Unavailabl e TRABOULSSI, MOURHAF Referring Unavailable AMADOR SON Attending Unavailable NADERERISHMAEL SY Primary Care Unavailabl e NADERER, ISHMAEL COEUR D ALENE Primary Care Unavailabl e EARL WRIGHTCI E Attending Unavaila ble NADERER, ISHMAEL [facility] Care Unavailabl e TRABOULSSI, MOURHAF Attending Unavailable TRABOULSSI, MOURHAF Referring Unavailable NADERERISHMAEL SY Primary Care Unavailabl e HUY AMADOR N Attending Unavailable MCKENNA, NAIMA E Referring Unavaila ble NADERER, ISHMAEL COEUR D ALENE Primary Care Unavailabl e MCKENNA, NAIMA E Referring Unavaila ble NADERER, ISHMAEL SY Primary Care Unavailabl e HUY AMADOR N Referring Unavailable NADERERISHMAEL SY Primary Care Unavailabl e ANA M KUMARI Referring Unavailable NADERER, ISHMAEL SY Primary Care Unavailabl e ANA M KUMARI Referring Unavailable NADERER, ISHMAEL SY Primary Care Unavailabl e HUY AMADOR N Referring Unavailable NADERER, ISHMAEL SY Primary Care Unavailabl e HUY AMADOR N Referring Unavailable NADERER, ISHMAEL COEUR D ALENE Primary Care Unavailabl e NAIMA WRIGHT Referring Unavaila ISHMAEL Dukes Primary Care Unavailabl e Medications Current Medications Medication Drug Class(es) Dates Sig (Normalized) Sig (Original) acetaminophen 325 mg oral tablet (1 source) Start: 08-05-2023 take 1 tablet by mouth every four hours as needed acetaminophen (Tylenol) tablet 650 mg acetaminophen 325 mg / oxyCODONE hydrochloride 7.5 mg oral tablet (20 sources) Opioid Agonist Start: 12-01-2023 End: 06-27-2024 take 1 tablet by mouth four times daily as needed for pain oxyCODONE-acetaminop hen (Percocet) 7.5-325 MG tablet Indications: Degeneration of lumbar intervertebral disc Take 1 tablet by mouth 4 (four) times a day as needed for severe pain or moderate pain 120 tablet 05/28/2024 06/27/2024 Active Start: 03-30-2021 take 1 tablet by [...] aspirin 81 mg delayed release oral tablet (20 sources) Platelet Aggregation Inhibitor, Nonsteroidal Anti-inflammatory Drug [...] Active 0.5 ml dulaglutide 1.5 mg/ml auto-injector (2 sources) GLP-1 Receptor Agonist Start: 04-24-2024 inject 0.75 mg by subcutaneous injection every week Dulaglutide (Trulicity) 0.75 MG/0.5ML solution auto-injector Indications: Type 2 diabetes mellitus with hyperglycemia, without long-term current use of insulin ([facility]) Inject 0.75 mg under the skin 1 (one) time per week 2 mL 5 04/24/2024 Active Fluticasone-Umecli din-Vilanter (20 sources) Anticholinergic, Corticosteroid, beta2-Adrenergic Agonist Start: 07-06-2019 Fluticasone-Umecl idin-Vilanter (Trelegy Ellipta) 100-62.5-25 mcg blister with device Active 1 MCG INHALATION As Directed July 06, 2019 12:00am take 1 dose by inhal ation in the morning Unzrrpnwtuy-Oasvimkvy-Ydrbcz (Trelegy El lipta) 100-62.5-25 MCG/ACT aerosol powder [...] 1 capsule by inhalation once daily Tiotropium [place] (Spiriva With Handihaler) 18 mcg capsule, w/inhalation [...] quadrant pain] Onset: 06-11-2022 Episodic Alcohol-related disorders (20 sources) Alcoholic gastritis; Translations: [Alcoholic gastritis without [...] 05-13-2022 07-22-2023 Chronic Disorders of lipid metabolism (19 sources) Hyperlipidemia, unspecified; Translations: [Dyslipidemia] Onset: 05-13-2022 [...] of Phys. EHR Cmte Hyperplasia of prostate (18 sources) Benign prostatic hypertrophy with outflow obstruction; Translations: [Benign prostatic hyperplasia with lower urinary tract symptoms] Onset: 04-13-2023 04-13-2023 Chronic Nonspecific chest pain (2 sources) Atypical chest pain; Translations: [Other chest pain] 04-20-2023 Episodic Comment on above: Problem List clean-u p per request of Phys. EHR Cmte Nutritional deficiencies (20 sources) Vitamin D deficiency, unspecified; Translations: [Vitamin D deficiency] Onset: 05-07-2022 Chronic Osteoarthritis (20 sources) Osteoarthritis of right hip joint; Translations: [Unilateral primary osteoarthritis, right hip] Onset: 04-13-2023 04-13-2023 Chronic Other connective tissue disease (4 sources) Neuralgia and neuritis, unspecified; Translations: [NEURALGIA AND NEURITIS UNSPECIFIED] Onset: 07-23-2022 Episodic Other hereditary and degenerative nervous system conditions (1 source) Dystonia, unspecified; Translations: [DYSTONIA UNSPECIFIED] Onset: 07-30-2022 Chronic Other inflammatory condition of skin (18 sources) Plaque psoriasis; Translations: [Psoriasis vulgaris] Onset: 04-13-2023 04-13-2023 Chronic Other lower respiratory disease (1 source) Dyspnea, unspecified; Translations: [Dyspnea, unspecified] Onset: 02-15-2022 Episodic Other lower respiratory disease (2 sources) Rib pain; Translations: [Pleurodynia] 04-20-2023 Episodic Comment on above: Problem List clean-u p per request of Phys. EHR Cmte Other male genital disorders (18 sources) Secondary erectile dysfunction; Translations: [Male erectile dysfunction, unspecified] Onset: 04-13-2023 04-13-2023 Chronic Other nervous system disorders (4 sources) Other specified mononeuropathies; Translations: [OTHER SPECIFIED MONONEUROPATHIES] Onset: 07-20-2022 Chronic Other nervous system disorders (1 source) Other chronic pain; Translations: [OTHER CHRONIC PAIN] Onset: 01-22-2022 Chronic Other nervous system disorders (18 sources) Ulnar neuropathy of left arm; Translations: [Lesion of ulnar nerve, left upper limb] Onset: 04-13-2023 04-13-2023 Chronic Other nervous system disorders (18 sources) Carpal tunnel syndrome of left wrist; [...] Chronic Other nutritional; endocrine; and metabolic disorders (7 sources) Severe obesity; Translations: [Class 2 severe obesity due to excess calories with serious comorbidity and body mass index (BMI) of 37.0 to 37.9 in adult ([facility])] Onset: 04-13-2023 04-24-2024 Chronic Other [...] 07-22-2023 Chronic Respiratory failure; insufficiency; arrest (adult) (18 sources) Chronic hypoxemic respiratory failure; Translations: [Chronic [...] Problem Date Documented Date Episodic/Chronic Administrative/social admission (7 sources) Patient encounter status; Translations: [Persons encountering health services in other specified circumstances] Onset: 04-13-2023 07-22-2023 Episodic Cardiac dysrhythmias (20 sources) Sinus bradycardia; Translations: [Other specified cardiac dysrhythmias] Onset: 01-01-2022 Episodic Genitourinary symptoms and ill-defined conditions (20 sources) Dysuria; Translations: [Dysuria] Onset: 02-06-2024 02-06-2024 Episodic Comment on above: Problem List clean-u p per request of Phys. 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; Translations: [OTH SENIOR CARE CURRENT DRUG THERAPY] Onset: 05-13-2022 Episodic Other aftercare (14 sources) Long-term current use of drug therapy; Translations: [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] Onset: 04-13-2023 04-13-2023 [...] Onset: 05-23-2023 Episodic Other non-traumatic joint disorders (18 sources) Bilateral chronic pain of upper limbs; [...] Onset: 08-10-2023 Episodic Other upper respiratory disease (18 sources) Polyp of nasal cavity and/or nasal sinus; Translations: [Nasal polyp, unspecified] Onset: 04-13-2023 04-13-2023 Episodic Unclassified (1 source) CONTACT W/AND (SUSP) EXPOS COVID-19; Translations: [CONTACT W/AND (SUSP) EXPOS COVID-19] Onset: 04-12-2022 Unclassified (13 sources) Onset: 07-13-2023 Resolved: 12-01-2023 07-13-2023 Results Test Name Value Interpretation Reference Range Facility Cardiac Device Check - In Cl inicon 05-23-2024 [facility] Work Phone: Radiology Study observation (narrative) [facility] Work Phone: ECG 12 lead (Clinic Performe d)on 05-23-2024 EKG performed today shows atrial paced rhythm at rate of 74 bpm QRS ration 100 ms QT corrected 448 ms. Rhythm strip shows the same pattern. [facility] Work Phone: [facility] Work Phone: MLR HEMOGLOBIN A1Con 024 Glucose [Mass/Vol] 131 mg/dL [facility] HbA1c (Bld) [Mass fraction] 6.2 % 4.5 - 6.2 % [facility] Comment on above: ADA RECOMMENDED LIMI T 4.0 - 6.0 ADA THERAPEUTIC TARGET < 7.0 ACTION SUGGESTED > 7.0 [facility] Magnetic resonance imaging r eportOrdered By: Germán Murphy on 03-27-2024 Study report [facility] Main [place] [id number] MRI Report Signed Patient: Liliana Michaels JR MR#: [id number] : 1965 Acct:[id number] Age/Sex: 59 / M ADM Date: 4 Loc: MR Room: Type: [facility] Attending Dr: Danielle GAYTAN Copies to: LUKAS Burns~ Ordering Provider: LUKAS Burns Date of Service: 03/27/24 MR/MR lumbar spine wo con: LUMBAR DDD ([id number]) XR/XR pre/post mri xray: LUMBAR DDD MRI [...] D.OAtiya03/27/2024 11:57 AM Dictation Location: [place] [address] Transcribed By: [facility] 03/27/24 1157 Dictated By: Germán Murphy Jr, DO 03/27/24 1148 Signed By: 03/27/24 1157 [facility] XR pre/post mri xray 03-27 XR pre/post mri xray [place] [address] MRI Report Signed Patient: Liliana Michaels JR MR#: [id number] : 1965 Acct:[id number] Age/Sex: 59 / M ADM Date: 03/27/24 Loc: MR Room: Type: [facility] Attending Dr: Danielle GAYTAN Copies to: LUKAS Burns Ordering Provider: LUKAS Burns Date of Service: 03/27/24 MR/MR lumbar spine wo con: LUMBAR DDD ([id number]) XR/XR pre/post mri xray: LUMBAR DDD MRI [...] D.O.03/27/2024 11:57 AM Dictation Location: [place] [address] Transcribed By: [facility] 03/27/24 1157 Dictated By: Germán Murphy Jr, DO 03/27/24 1148 Signed By: 03/27/24 1157 Normal [facility] XR chest 2V*on 03-16-2024 XR chest 2V* [facility] [place] [address] [place] [address] XRay Report Signed Patient: Liliana Michaels JR MR#: [id number] : 1965 Acct:[id number] Age/Sex: 59 / M ADM Date: 03/16/24 Loc: [facility] Room: Type: [facility] Attending Dr: Danielle GAYTAN Copies to: LUKAS [...] Elia Rodrigez M.D.03/16/2024 8:54 AM Dictation Location: [place] [address] Transcribed By: [facility] 03/16/24 0854 Dictated By: Elia Rodrigez DO 03/16/24 0849 Signed By: 03/16/24 0854 Normal [facility] Cardiac Device Check - Remot neeta 02-14-2024 [facility] Work Phone: Radiology Study observation (narrative) [facility] Work Phone: TBH UA (CLEAN/CATCH) MICROSC [...] Test strip Ql (U) LARGE Abnormal NEGATIVE [facility] NITRITE URINE Negative NEGATIVE [facility] pH (U) 6.0 [pH] 5.0 - 9.0 [facility] PROTEIN URINE Negative NEG/TRACE mg/dL [facility] SPECIFIC GRAVITY URINE 1.015 1.005 - 1.025 [facility] URINE MICROSCOPIC INDICATED YES [facility] UROBILINOGEN URINE 0.2 EU/dL 0.2 - 1.0 EU/dL [facility] XR CHEST 2 VIEWSon XR CHEST 2 VIEWS Interpreted By: Sancho Gross, STUDY: XR CHEST 2 VIEWS; 11/09/2023 9:46 am INDICATION: Signs/Symptoms:Pacem marilyn. COMPARISON: 08/05/2023 ACCESSION NUMBER(S): [id number] ORDERING CLINICIAN: ANA M KUMARI FINDINGS: Left-sided pacemaker in place. CARDIOMEDIASTINAL SILHOUETTE: Cardiomediastinal silhouette is normal in size and configuration. LUNGS: Lungs are clear. ABDOMEN: No remarkable upper abdominal findings. BONES: No acute osseous changes. IMPRESSION: 1. No evidence of acute cardiopulmonary process. MACRO: None Signed by: Sancho Gross 11/10/2023 8:35 AM Dictation workstation: [id number] [facility] Comment on above: Order Comment: Repor t to [facility] registration on 11/09/2023 at 8:30 AM for chest x-ray and device check prior to appointment with Dr. Son at 10 AM Cardiac Device Check - Remot neeta 09-26-2023 [facility] Work Phone: Radiology Study observation (narrative) [facility] Work Phone: US.doppler Upper extremity v ein - lefton 08-10-2023 Exam negative for acute deep venous thrombosis in the left upper extremity MACRO: None Signed by: Simone Ramos 08/10/2023 3:07 PM Dictation workstation: [id number] Interpreted By: Simone Ramos, STUDY: VASC US UPPER EXTREMITY VENOUS DUPLEX LEFT; 08/10/2023 2:47 pm INDICATION: Signs/Symptoms: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 COMPARISON: Portable chest 05 August 2023 ACCESSION NUMBER(S): [id number] ORDERING CLINICIAN: NAIMA WRIGHT TECHNIQUE: Vascular ultrasound [...] Portable chest 05 August 2023 ACCESSION NUMBER(S): [id number] ORDERING CLINICIAN: NAIMA WRIGHT TECHNIQUE: Vascular ultrasound [...] Simone Ramos 08/10/2023 3:07 PM Dictation workstation: [id number] [facility] Work Phone: Radiology Study observation (narrative) [facility] Work Phone: US.doppler Upper extremity v ein - leftOrdered By: Simone Ramos on 08-10-2023 [facility] Work Phone: VASC US UPPER EXTREMITY VENO US DUPLEX LEFTon 08-10-2023 VASC US UPPER EXTREMITY VENOUS DUPLEX LEFT Interpreted By: Simone Ramos, STUDY: VASC US UPPER EXTREMITY VENOUS DUPLEX LEFT; 08/10/2023 2:47 pm INDICATION: Signs/Symptoms: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 COMPARISON: Portable chest 05 August 2023 ACCESSION NUMBER(S): [id number] ORDERING CLINICIAN: NAIMA WRIGHT TECHNIQUE: Vascular ultrasound [...] Simone Ramos 08/10/2023 3:07 PM Dictation workstation: [id number] [facility] Basic metabolic 2000 panelon 08-05-2023 Anion gap [Moles/Vol] 12 mmol/L 10 - 2 0 mmol/L [facility] Calcium [Mass/Vol] 9.6 mg/dL 8.6 - 10. 3 mg/dL [facility] Chloride [Moles/Vol] 102 mmol/L 98 - 10 7 mmol/L [facility] CO2 [Moles/Vol] 29 mmol/L 21 - 32 mmol/L [facility] Creatinine [Mass/Vol] 1.12 mg/dL 0.50 - 1.30 mg/dL [facility] GFR/1.73 sq M.predicted among non-blacks MDRD (S/P/Bld) [Vol rate/Area] 76 mL/min/{1.73_m2} - PINF [facility] Comment on above: Calculations of yang mated GFR are performed using the 2020 CKD-EPI Study Refit equation without the race variable for the IDMS-Traceable creatinine methods. https://jasn.asnjournals.org/content/early/ASN.2020 324930 Glucose [Mass/Vol] 95 mg/dL 74 - 99 mg/dL [facility] Interpretation and review of laboratory results Normal [facility] Potassium [Moles/Vol] 4.0 mmol/L 3.5 - 5.3 mmol/L [facility] Sodium [Moles/Vol] 139 mmol/L 136 - 145 mmol/L [facility] Urea nitrogen [Mass/Vol] 17 mg/dL 6 - 23 mg/dL [facility] Anion gap [Moles/Vol] 12 mmol/L Normal 10-20 [facility] Comment on above: Performed By: #### 2 4321-2 #### JAIMEE QURESHI ([id number]) [facility] ([facility]) [address] [place] [address] Calcium [Mass/Vol] 9.6 mg/dL Normal 8.6-10.3 [facility] Comment on above: Performed By: #### 2 4321-2 #### JAIMEE QURESHI ([id number]) [facility] ([facility]) [address] [place] [address]772 Chloride [Moles/Vol] 102 mmol/L Normal 98-107 [facility] Comment on above: Performed By: #### 2 4321-2 #### JAIMEE QURESHI ([id number]) [facility] ([facility]) [address] [place] [address] 10458 CO2 [Moles/Vol] 29 mmol/L Normal 21-32 [facility] Comment on above: Performed By: #### 2 4321-2 #### JAIMEE QURESHI ([id number]) [facility] ([facility]) [address] [place] [address] 97046 Creatinine [Mass/Vol] 1.12 mg/dL Normal 0.50-1.30 [facility] Comment on above: Performed By: #### 2 4321-2 #### JAIMEE QURESHI ([id number]) [facility] ([facility]) [address] [place] [address] 60008 Glomerular filtration rate/1.73 sq M.predicted 76 mL/min/1.73m*2 Normal >60 [facility] Comment on above: Result Comment: Calc ulations of estimated GFR are performed using the 2020 CKD-EPI Study Refit equation without the race variable for the IDMS-Traceable creatinine methods. https://jasn.asnjournals.org/content//ASN.2020 512886 Performed By: #### 2 4321-2 #### JAIMEE QURESHI ([id number]) [facility] ([facility]) [address] [place] [address] 49079 Glucose [Mass/Vol] 95 mg/dL Normal 74-99 [facility] Comment on above: Performed By: #### 2 4321-2 #### JAIMEE QURESHI ([id number]) [facility] ([facility]) [address] [place] [address] 26546 Potassium [Moles/Vol] 4.0 mmol/L Normal 3.5-5.3 [facility] Comment on above: Performed By: #### 2 4321-2 #### JAIMEE QURESHI ([id number]) [facility] ([facility]) [address] [place] [address] 07381 Sodium [Moles/Vol] 139 mmol/L Normal 136-145 [facility] Comment on above: Performed By: #### 2 4321-2 #### JAIMEE QURESHI ([id number]) [facility] ([facility]) [address] [place] [address] 43538 Urea nitrogen [Mass/Vol] 17 mg/dL Normal 6-23 [facility] Comment on above: Performed By: #### 2 4321-2 #### JAIMEE QURESHI ([id number]) [facility] ([facility]) [address] [place] [address] 29635 CBC panel Auto (Bld)on 08-04 Erythrocyte distribution width (RBC) [Ratio] 13.0 % 11.5 - 14.5 % [facility] Hematocrit (Bld) [Volume fraction] 46.9 % 41.0 - 52.0 % [facility] Hemoglobin (Bld) [Mass/Vol] 16.1 g/dL 13.5 - 17.5 g/dL [facility] Interpretation and review of laboratory results Normal [facility] MCH (RBC) [Entitic mass] 31.5 pg 26.0 - 34.0 pg [facility] MCHC (RBC) [Mass/Vol] 34.3 g/dL 32.0 - 36.0 g/dL [facility] MCV (RBC) [Entitic vol] 92 fL 80 - 100 fL [facility] Nucleated RBC/100 WBC (Bld) [Ratio] 0.0 % [facility] Platelets (Bld) [#/Vol] 279 10*3/uL [facility] RBC (Bld) [#/Vol] 5.11 10*6/uL [facility] WBC (Bld) [#/Vol] 8.9 10*3/uL [facility] Erythrocyte distribution width (RBC) [Ratio] 13.0 % Normal 11.5-14.5 [facility] Comment on above: Performed By: #### 5 8410-2 #### JAIMEE QURESHI ([id number]) [facility] ([facility]) [address] [place] [address]11 Hematocrit (Bld) [Volume fraction] 46.9 % Normal 41.0-52.0 [facility] Comment on above: Performed By: #### 5 8410-2 #### JAIMEE QURESHI ([id number]) [facility] ([facility]) [address] [place] [address] 38824 Hemoglobin (Bld) [Mass/Vol] 16.1 g/dL Normal 13.5-17.5 [facility] Comment on above: Performed By: #### 5 8410-2 #### JAIMEE QURESHI ([id number]) [facility] ([facility]) [address] [place] [address] 15944 MCH (RBC) [Entitic mass] 31.5 pg Normal 26.0-34.0 [facility] Comment on above: Performed By: #### 5 8410-2 #### JAIMEE QURESHI ([id number]) [facility] ([facility]) [address] [place] [address] 97023 MCHC (RBC) [Mass/Vol] 34.3 g/dL Normal 32.0-36.0 [facility] Comment on above: Performed By: #### 5 8410-2 #### JAIMEE QURESHI ([id number]) [facility] ([facility]) [address] [place] [address] 93841 MCV (RBC) [Entitic vol] 92 fL Normal 80-100 [facility] Comment on above: Performed By: #### 5 8410-2 #### JAIMEE QURESHI ([id number]) [facility] ([facility]) [address] [place] [address] 83602 Nucleated RBC/100 WBC (Bld) [Ratio] 0.0 /100 WBCs Normal 0.0-0.0 [facility] Comment on above: Performed By: #### 5 8410-2 #### JAIMEE QURESHI ([id number]) [facility] ([facility]) [address] [place] [address] 17097 Platelets (Bld) [#/Vol] 279 x10*3/uL Normal 150-450 [facility] Comment on above: Performed By: #### 5 8410-2 #### JAIMEE QURESHI ([id number]) [facility] ([facility]) [address] [place] [address] 22114 RBC (Bld) [#/Vol] 5.11 x10*6/uL Normal 4.50-5.90 [facility] Comment on above: Performed By: #### 5 8410-2 #### JAIMEE QURESHI ([id number]) [facility] ([facility]) [address] [place] [address] 33925 WBC (Bld) [#/Vol] 8.9 x10*3/uL Normal 4.4-11.[address] [facility] Comment on above: Performed By: #### 5 8410-2 #### JAIMEE QURESHI ([id number]) [facility] ([facility]) [address] [place], [place] [address] Electrophysiology studyon [facility] Work Phone: PT and aPTT panel Coag (PPP) on 08-05-2023 aPTT Coag (PPP) [Time] 34 s [facility] INR Coag (PPP) [Relative time] 1.0 {INR} 0.9 - 1.1 [facility] Interpretation and review of laboratory results Normal [facility] PT Coag (PPP) [Time] 11.0 s [facility] The APTT is no longer used for monitoring Unfractionated Heparin Therapy. For monitoring Heparin Therapy, use the Heparin Assay. [facility] aPTT Coag (PPP) [Time] 34 s Normal 27-38 [facility] Comment on above: Order Comment: The A PTT is no longer used for monitoring Unfractionated Heparin Therapy. For monitoring Heparin Therapy, use the Heparin Assay. Performed By: #### 3 4529-8 #### JAIMEE QURESHI ([id number]) [facility] ([facility]) [address] [place] [address] 20152 INR Coag (PPP) [Relative time] 1.0 Normal 0.9-1.1 [facility] Comment on above: Order Comment: The A PTT is no longer used for monitoring Unfractionated Heparin Therapy. For monitoring Heparin Therapy, use the Heparin Assay. Performed By: #### 3 4529-8 #### JAIMEE QURESHI ([id number]) [facility] ([facility]) [address] [place] [address] 38238 PT Coag (PPP) [Time] 11.0 s Normal 9.8-12.8 [facility] Comment on above: Order Comment: The A PTT is no longer used for monitoring Unfractionated Heparin Therapy. For monitoring Heparin Therapy, use the Heparin Assay. Performed By: #### 3 4529-8 #### JAIMEE QURESHI ([id number]) [facility] ([facility]) [address] [place] [address] 57164 TRANSTHORACIC ECHO (TTE) COM [place] 08-05-2023 TRANSTHORACIC ECHO (TTE) COMPLETE [address] [address] TRANSTHORACIC ECHOCARDIOGRAM REPORT Patient Name: LILIANA MICHAELS Reading Physician: [id number] Batsheva Morris MD, [facility] Study Date: 08/05/2023 Ordering Provider: [id number] ANA M ANGEL MRN/PID: [id number] Fellow: Nurse: Date of /Age: 10 1965 Recycling Worker: Eli Pisano RDGRACY Gender: M Additional Staff: Height: 162.56 cm Admit Date: Weight: 90.72 kg Admission Status: Outpatient BSA / BMI: 1.96 m2 / 34.33 Department Location: [place] [address] Echo Lab Blood Pressure: 128 /73 mmHg Study Type: TRANSTHORACIC ECHO (TTE) COMPLETE Diagnosis/ICD: Bradycardia, unspecified-R00.1 Indication: Abnormal EKG, Pre-EP CPT Codes: Echo Complete w Full Doppler-32351 Study Detail: The following Echo studies were [...] LA Area A2C: 18.9 cm2 LA Major Heth A4C: 5.8 cm LA Major Heth A2C: 5.5 cm LA Volume Index: 27.0 [...] 1.3 m/s (0.6-0.9m/s) PV Max P.6 mmHg [id number] Batsheva Morris MD, FACC Electronically signed on 08/05/2023 at 2:30:14 PM Final Normal [facility] US Heart TransthoracicOrdere d By: Batsheva Morris on 08-05-2023 Aortic Valve Area by Continuity of Peak Velocity 2.42 cm2 [facility] Work Phone: Aortic Valve Area by Continuity of VTI 2.62 cm2 [facility] Work Phone: AV mn grad 4.0 mmHg [facility] Work Phone: AV pk grad 8.2 mmHg [facility] Work Phone: AV pk abiodun 1.43 m/s [facility] Work Phone: LA vol index A/L 29.3 ml/m2 [facility] Work Phone: LV A4C EF 62.4 [facility] Work Phone: LV biplane EF 60 % [facility] Work Phone: LVIDd 5.28 cm [facility] Work Phone: LVOT diam 2.00 cm [facility] Work Phone: MV avg E/e' ratio 7.78 [facility] Work Phone: MV E/A ratio 0.88 [facility] Work Phone: RV free wall pk S' 15.40 cm/s [facility] Work Phone: RVSP 23.4 mmHg [facility] Work Phone: Tricuspid annular plane systolic excursion 3.6 cm [facility] Work Phone: [facility] Work Phone: US Heart Transthoracicon [place] [phone] TRANSTHORACIC ECHOCARDIOGRAM REPORT Patient Name: LILIANA Quiñones Physician: [id number] Batsheva Morris MD, [facility] Study Date: 08/05/2023 Ordering Provider: [id number] ANA M ANGEL MRN/PID: [id number] Fellow: Nurse: Date of /Age: 10 1965 / 58 Recycling Worker: Eli Pisano RDCS Gender: M Additional Staff: Height: 162.56 cm Admit Date: Weight: 90.72 kg Admission Status: Outpatient BSA / BMI: 1.96 m2 / 34.33 Department Location: [place] [facility] kg/m2 Echo Lab Blood Pressure: 128 /73 mmHg Study Type: TRANSTHORACIC ECHO (TTE) COMPLETE Diagnosis/ICD: Bradycardia, unspecified-R00.1 Indication: Abnormal EKG, Pre-EP CPT Codes: Echo Complete w Full Doppler-10323 Study Detail: The following Echo studies were [...] LA Area A2C: 18.9 cm2 LA Major Heth A4C: 5.8 cm LA Major Heth A2C: 5.5 cm LA Volume Index: 27.0 [...] not included)... Batsheva Alexander MD - 08/05/2023 [place] [address] TRANSTHORACIC ECHOCARDIOGRAM REPORT Patient Name: LILIANA MICHAELS Reading Physician: [id number] Batsheva Morris MD, [facility] Study Date: 08/05/2023 Ordering Provider: [id number] ANA M ANGEL MRN/PID: [id number] Fellow: Nurse: Date of /Age: 10 1965 / 58 Recycling Worker: Eli Pisano RDCS Gender: M Additional Staff: Height: 162.56 cm Admit Date: Weight: 90.72 kg Admission Status: Outpatient BSA / BMI: 1.96 m2 / 34.33 Department Location: [place] [address] Echo Lab Blood Pressure: 128 /73 mmHg Study Type: TRANSTHORACIC ECHO (TTE) COMPLETE Diagnosis/ICD: Bradycardia, unspecified-R00.1 Indication: Abnormal EKG, Pre-EP CPT Codes: Echo Complete w Full Doppler-[id number] Study Detail: The following Echo studies were [...] LA Area A2C: 18.9 cm2 LA Major Heth A4C: 5.8 cm LA Major Heth A2C: 5.5 cm LA Volume Index: 27.0 [...] 1.3 m/s (0.6-0.9m/s) PV Max P.6 mmHg [id number] Batsheva Morris MD, [facility] Electronically signed on 08/05/2023 at 2:30:14 PM Final [facility] Work Phone: XR CHEST 1 VIEWon 08-05-2023 XR CHEST 1 VIEW Interpreted By: Salvatore Clark, STUDY: XR CHEST 1 VIEW INDICATION: Signs/Symptoms:post implant. COMPARISON: None ACCESSION NUMBER(S): [id number] ORDERING CLINICIAN: ANA M KUMARI FINDINGS: No consolidation, effusion, edema, or pneumothorax. Pacemaker placed without pneumothorax. Position satisfactory. IMPRESSION: Status post pacemaker placement. Signed by: Salvatore Clark 08/05/2023 6:10 PM Dictation workstation: [id number] [facility] Comment on above: Order Comment: Vahe heard. XR Chest Single viewon 08-04 Status post pacemaker placement. Signed by: Salvatore Clark 08/05/2023 6:10 PM Dictation workstation: [id number] MMODAL Interpreted By: Salvatore Clark, STUDY: XR CHEST 1 VIEW INDICATION: Signs/Symptoms:post implant. COMPARISON: None ACCESSION NUMBER(S): [id number] ORDERING CLINICIAN: ANA M KUMARI FINDINGS: No consolidation, effusion, edema, or pneumothorax. Pacemaker placed without pneumothorax. Position satisfactory. [facility] MMODAL Salvatore Clark MD - 08/05/2023 Interpreted By: Salvatore Clark, STUDY: XR CHEST 1 VIEW INDICATION: Signs/Symptoms:post implant. COMPARISON: None ACCESSION NUMBER(S): [id number] ORDERING CLINICIAN: ANA M KUMARI FINDINGS: No consolidation, effusion, edema, or pneumothorax. Pacemaker placed without pneumothorax. Position satisfactory. IMPRESSION: Status post pacemaker placement. Signed by: Salvatore Clark 08/05/2023 6:10 PM Dictation workstation: [id number] [facility] Work Phone: Radiology Study observation (narrative) [facility] Work Phone: XR Chest Single viewOrdered By: Salvatore Clark on 08-05-2023 [facility] Work Phone: ECG 12 lead (Clinic Performe d)on 07-22-2023 EKG shows marked sinus bradycardia rate of 41 bpm QRS ration 100 ms QT corrected he had a 91 ms. Rhythm strip shows the same pattern. [facility] Work Phone: CT LUNG CANCER SCREENINGon [...] by: BATSHEVA ALVARADO Date: 2022-07-15 12:10 Normal [facility] Office Visit (Cardiology)on 07-14-2022 Follow-up visit [...] we can help. You may also call [phone] for free resources and assistance.; Status:Complete - Retrospective Authorization; Done: [id number] Patient Instructions Please bring all medicines, vitamins, [...] ischemic evaluation. He underwent cardiac catheterization in [place] which showed no significant obstructive disease 3. [...] BY MOUTH FOUR TIMES A DAY NEEDED Aeglim5w at bedtime Singulair 10 MG Oral TabletTAKE [...] Recorded: 14Jul2022 10:57AM Heart Rate34, L Radial Leijehlk444, LUE, Sitting Lbzpewcdk54, LUE, Sitting Height5 ft 4 in Eerzqt806 lb BMI Beumnthhke12.96 kg/m2 BSA Calculated1.92 Tobacco Usea) Yes Patient encouraged to st (more content not included)... Normal [facility] Tobacco Screening.on 023 Adult depression screening assessment No [facility] Vint DO Work Phone: Fall risk assessment a) No falls within the last year [facility] Vint DO Work Phone: Tobacco use status CPHS a) Yes M [facility] Vint DO Work Phone: Tobacco Screening. Yes [facility] Vint DO Work Phone: CT ABD/PELV W CONon [...] FLEX JACOBS Date: 2022-06-11 10:06 Normal [facility] CBC AUTO DIFFon 05-07-2022 BASO # 0.1 103/ul Normal 0.0-0.1 [facility] Comment on above: Performed By: #### C BC #### [facility] [address] [place] [address] Dr. Britt Mendoza Basophils/100 WBC (Bld) 1.6 % Normal 0.2-2.0 [facility] Comment on above: Performed By: #### C BC #### [facility] [address] [place] [address] [address] Britt Mendoza EO # 0.2 103/ul Normal 0.0-0.7 [facility] Comment on above: Performed By: #### C BC #### [facility] [address] [place] [address] [address] Britt Mendoza Eosinophils/100 WBC (Bld) 3.0 % Normal 0.9-7.0 [facility] Comment on above: Performed By: #### C BC #### [facility] [address] [place] [address] Dr. Britt Mendoza Erythrocyte distribution width (RBC) [Ratio] 12.4 % Normal 11.0-15.0 [facility] Comment on above: Performed By: #### C BC #### [facility] [address] [place] [address] Dr. Britt Mendoza Hematocrit (Bld) [Volume fraction] 43.2 % Normal 42.0-54.0 [facility] Comment on above: Performed By: #### C BC #### [facility] [address] [place] [address] Dr. Britt Mendoza Hemoglobin (Bld) [Mass/Vol] 14.7 g/dL Normal 14.0-18.0 [facility] Comment on above: Performed By: #### C BC #### [facility] [address] [place] [address] Dr. Britt Mendoza IG # 0.11 10e3/ul Critically high 0.00-0.03 [facility] Comment on above: Performed By: #### C BC #### [facility] [address] [place] [address] Dr. Britt Mendoza IG % 1.4 % Critically high 0.0-0.5 [facility] Comment on above: Performed By: #### C BC #### [facility] [address] [place] [address] Dr. Britt Mendoza LYMPH # 1.7 103/ul Normal 1.2-3.8 [facility] Comment on above: Performed By: #### C BC #### [facility] [address] [place] [address] Dr. Britt Mendoza Lymphocytes/100 WBC (Bld) 21.6 % Normal 20.5-60.0 [facility] Comment on above: Performed By: #### C BC #### [facility] [address] [place] [address] Dr. Britt Mendoza MANUAL DIFF REQ NO Normal [facility] Comment on above: Performed By: #### C BC #### [facility] [address] [place] [address] Dr. Britt Mendoza MCH (RBC) [Entitic mass] 31.2 pg Normal 25.9-34.0 [facility] Comment on above: Performed By: #### C BC #### [facility] [address] [place] [address] Dr. Britt Mendoza MCHC (RBC) [Mass/Vol] 34.0 g/dL Normal 29.9-35.2 [facility] Comment on above: Performed By: #### C BC #### [facility] [address] [place] [address] Dr. Britt Mendoza MCV (RBC) [Entitic vol] 91.7 fL Normal 80.0-94.0 [facility] Comment on above: Performed By: #### C BC #### [facility] [address] [place] [address] Dr. Britt Mendoza MONO # 0.5 103/ul Normal 0.3-0.8 [facility] Comment on above: Performed By: #### C BC #### [facility] [address] [place] [address] Dr. Britt Mendoza Monocytes/100 WBC (Bld) 6.8 % Normal 1.7-12.0 [facility] Comment on above: Performed By: #### C BC #### [facility] [address] [place] [address] Dr. Britt Mendoza NEUT # 5.0 103/ul Normal 1.4-6.5 [facility] Comment on above: Performed By: #### C BC #### [facility] [address] [place] [address] Dr. Britt Mendoza Neutrophils/100 WBC (Bld) 65.6 % Normal 43.0-75.0 [facility] Comment on above: Performed By: #### C BC #### [facility] [address] [place] [address] Dr. Britt Mendoza Platelet mean volume (Bld) [Entitic vol] 9.7 fL Normal 9.5-13.5 [facility] Comment on above: Performed By: #### C BC #### [facility] [address] [place] [address] [address] Britt Mendoza PLT 244 103/ul Normal 150-450 [facility] Comment on above: Performed By: #### C BC #### [facility] [address] [place] [address] [address] Britt Mendoza RBC 4.71 106/ul Normal 4.70-6.10 [facility] Comment on above: Performed By: #### C BC #### [facility] [address] [place] [address] [address] Britt Mendoza WBC 7.6 103/ul Normal 4.0-11.0 [facility] Comment on above: Performed By: #### C BC #### [facility] [address] [place] [address] [address] Britt Mendoza GLYCOHEMOGLOBIN A1Con 2021 ADA RECOMMENDATION SEE BELOW Normal [facility] Comment on above: Result Comment: ADA RECOMMENDED LIMIT 4.0 - 6.0 ADA THERAPEUTIC TARGET < 7.0 ACTION SUGGESTED > 7.0 Performed By: #### A 1C ####[facility] [address] [place] [address]Dr. Britt Mendoza Glucose [Mass/Vol] 117 mg/dL Normal [facility] Comment on above: Performed By: #### A 1C ####[facility] [address] [place] [address]Dr. Britt Mendoza HbA1c (Bld) [Mass fraction] 5.7 % Normal 4.5-6.2 [facility] Comment on above: Performed By: #### A 1C ####[facility] [address] [place] [address]Dr. Britt Mendoza LIPID PROFILEon 05-07-2022 CHOL-HDL RATIO NORM SEE BELOW Normal [facility] Comment on above: Result Comment: 3.3 - 4.4 LOW RISK 4.4 - 7.1 AVERAGE RISK 7.1 - 11.0 MODERATE RISK >11.0 HIGH RISK Performed By: #### B MP, LIVER, LIPID, TSH ####[facility] [address] [place] [address]Dr. Britt Mendoza Cholesterol [Mass/Vol] 235 mg/dL Critically high <=200 [facility] Comment on above: Performed By: #### B MP, LIVER, LIPID, TSH ####[facility] [address] [place] [address]Dr. Britt Mendoza Cholesterol in HDL [Mass/Vol] 40 mg/dL Normal 40-60 [facility] Comment on above: Performed By: #### B MP, LIVER, LIPID, TSH ####[facility] [address] [place] [address]Dr. Britt Mendoza Cholesterol in LDL [Mass/Vol] 156.8 mg/dL Normal [facility] Comment on above: Performed By: #### B MP, LIVER, LIPID, TSH ####[facility] [address] [place] [address]Dr. Britt Mendoza Cholesterol.total/Viola sterol in HDL [Mass ratio] 5.9 {ratio} Normal [facility] Comment on above: Performed By: #### B MP, LIVER, LIPID, TSH ####[facility] [address] [place] [id number]. Anjalilan Mendoza HDL NORMAL > or = 60 mg/dl - LOW CARDIOVASCULAR RISK <40 mg/dl - HIGH CARDIOVASCULAR RISK Normal [facility] Comment on above: Performed By: #### B MP, LIVER, LIPID, TSH ####[facility] [address] [place] [id number]. Anjalilan Mendoza LDL CALC NORMAL SEE BELOW Normal [facility] Comment on above: Result Comment: <100 mg/dl OPTIMAL 100 - 129 mg/dl NEAR OR ABOVE OPTIMAL 130 - 159 mg/dl BORDERLINE HIGH 160 - 189 mg/dl HIGH >190 mg/dl VERY HIGH Performed By: #### B MP, LIVER, LIPID, TSH ####[facility] [address] [place] [address]Dr. Anjalilan Mendoza Triglyceride [Mass/Vol] 191 mg/dL Critically high <=150 [facility] Comment on above: Performed By: #### B MP, LIVER, LIPID, TSH ####[facility] [address] [place] [address]Dr. Britt Mendoza VLDL CALC 38.2 mg/dL Normal [facility] Comment on above: Performed By: #### B MP, LIVER, LIPID, TSH ####[facility] [address] [place] [address]Dr. Britt Mendoza LIVER PROFILEon 05-07-2022 Albumin [Mass/Vol] 3.6 g/dL Normal 3.4-5.0 [facility] Comment on above: Performed By: #### B MP, LIVER, LIPID, TSH ####[facility] [address]qs[address] [place] [address]Dr. Britt Mendoza Albumin/Globulin [Mass ratio] 1.1 {ratio} Normal [facility] Comment on above: Performed By: #### B MP, LIVER, LIPID, TSH ####[facility] [address] [place] [address]Dr. Britt Mendoza ALP [Catalytic activity/Vol] 84 U/L Normal 46-116 [facility] Comment on above: Performed By: #### B MP, LIVER, LIPID, TSH ####[facility] [address] [place] [address]Dr. Britt Mendoza ALT [Catalytic activity/Vol] 34 U/L Normal 16-63 [facility] Comment on above: Performed By: #### B MP, LIVER, LIPID, TSH ####[facility] [address] [place] [address]Dr. Britt Mendoza AST [Catalytic activity/Vol] 21 U/L Normal 15-37 [facility] Comment on above: Performed By: #### B MP, LIVER, LIPID, TSH ####[facility] [address] [place] [address]Dr. Britt Mendoza BILI, CONJUGATED 0.1 mg/dL Normal 0.0-0.2 [facility] Comment on above: Performed By: #### B MP, LIVER, LIPID, TSH ####[facility] [address] [place] [id number]. Britt Mendoza Bilirubin [Mass/Vol] 0.4 mg/dL Normal 0.2-1.0 [facility] Comment on above: Performed By: #### B MP, LIVER, LIPID, TSH ####[facility] [address] [place] [address]Dr. Britt Mendoza Globulin (S) [Mass/Vol] 3.4 g/dL Normal [facility] Comment on above: Performed By: #### B MP, LIVER, LIPID, TSH ####[facility] [address] [place] [address]Dr. Britt Mendoza Protein [Mass/Vol] 7.0 g/dL Normal 6.4-8.2 [facility] Comment on above: Performed By: #### B MP, LIVER, LIPID, TSH ####[facility] [address] [place] [address]Dr. Britt Mendoza PROF CHEM 8 (BAS METB)on Anion gap [Moles/Vol] 13.8 mmol/L Normal [facility] Comment on above: Result Comment: Prev iously reported as: -2.3 On 05/07/2022 13:50 By DM9 Performed By: #### B MP, LIVER, LIPID, TSH #### [facility] [address] [place] [address] [address] Britt Mendzoa Calcium [Mass/Vol] 9.2 mg/dL Normal 8.5-10.1 [facility] Comment on above: Performed By: #### B MP, LIVER, LIPID, TSH #### [facility] [address] [place] [address] [address] Britt Mendoza Chloride [Moles/Vol] 99 mmol/L Normal 98-107 [facility] Comment on above: Result Comment: Prev iously reported as: 106 On 05/07/2022 13:50 By DM9 Performed By: #### B MP, LIVER, LIPID, TSH #### [facility] [address] [place] [address] [address] Britt Mendoza CO2 [Moles/Vol] 27.3 mmol/L Normal 21.0-32.0 [facility] Comment on above: Result Comment: Prev iously reported as: 29.2 On 05/07/2022 13:50 By DM9 Performed By: #### B MP, LIVER, LIPID, TSH #### [facility] [address] [place] [address] [address] Britt Mendoza Creatinine [Mass/Vol] 1.12 mg/dL Normal 0.70-1.30 [facility] Comment on above: Performed By: #### B MP, LIVER, LIPID, TSH #### [facility] [address] [place] [address] [address] Britt Mendoza EGFR-AF NIGERIEN >60 Normal >=60 [facility] Comment on above: Performed By: #### B MP, LIVER, LIPID, TSH #### [facility] [address] [place] [address] Dr. Britt Mendoza EGFR-NON AF NIGERIEN >60 Normal >=60 [facility] Comment on above: Performed By: #### B MP, LIVER, LIPID, TSH #### [facility] [address] [place] [address] [address] Britt Mendoza Glucose [Mass/Vol] 108 mg/dL Critically high 74-106 [facility] Comment on above: Performed By: #### B MP, LIVER, LIPID, TSH #### [facility] [address] [place] [address] Dr. Britt Mendoza Potassium [Moles/Vol] 4.1 mmol/L Normal 3.5-5.1 [facility] Comment on above: Result Comment: Prev iously reported as: 3.9 On 05/07/2022 13:50 By DM9 Performed By: #### B MP, LIVER, LIPID, TSH #### [facility] [address] [place] [address] Dr. Britt Mendoza Sodium [Moles/Vol] 136 mmol/L Normal 136-145 [facility] Comment on above: Result Comment: Prev iously reported as: 129 On 05/07/2022 13:50 By DM9 Performed By: #### B MP, LIVER, LIPID, TSH #### [facility] [address] [place], [place] [address] Dr. Britt Mendoza Urea nitrogen [Mass/Vol] 26.0 mg/dL Critically high 7.0-18.0 [facility] Comment on above: Performed By: #### B MP, LIVER, LIPID, TSH #### [facility] [address] [place], [place] [address] Dr. Britt Mendoza Urea nitrogen/Creatinine [Mass ratio] 23.2 mg/mg Normal [facility] Comment on above: Performed By: #### B MP, LIVER, LIPID, TSH #### [facility] [address] [place], [place] [address] Dr. Britt Mendoza TSHon 05-07-2022 TSH 0.828 uIU/mL Normal 0.358-3.740 [facility] Comment on above: Performed By: #### B MP, LIVER, LIPID, TSH ####[facility] [address] [place], [place] [address]UvDr. Britt Mendoza VITAMIN D 25 OHon 05-07-2022 VIT D 25-OH 45.6 ng/mL Normal [facility] Comment on above: Performed By: #### V BRENDAN PSASC #### [facility] [address] [place] [address] [address] Britt Mendoza VIT D RANGES SEE BELOW Normal [facility] Comment on above: Result Comment: <20 ng/mL Vit D deficient 20 - <30 ng/mL Vit D insufficient 30 - 100 ng/mL Vit D sufficient >100 ng/mL Potential Toxicity Performed By: #### V BRENDAN, PSASC #### [facility] [address] [place] [id number] Britt Mendoza Covid-19 PCR (CVDTB)on SARS-CoV-2 (COVID-19) RNA KATT+probe Ql (Unsp spec) Detected Critically abnormal NOT DETECTED [facility] Comment on above: Result Comment: This test is not yet approved or cleared by the [place] FDA. When there are no FDA-approved or cleared tests available, and other criteria are met, FDA can make tests available under an emergency access mechanism called an Emergency Use Authorization (EUA). The EUA for this test is supported by the [place] of Health and Human Service's declaration that [...] longer be used). Performed By: #### [facility] ####[facility] [place], [place] [address]Uz. Britt Mendoza Cardiac Stress Test 2021 Cardiac Stress Test [address], [place] [address] Exercise Stress Test Patient Name: LILIANA MICHAELS Atiya Ordering Physician: [id number] Ty MD Study Date: 02/15/2022 Reading Physician: [id number] Ty MD MRN/PID: [id number] Supervising Physician: [id number] Rivera MD Accession/Order#: [id number] Referring Physician: VALENTINO TY Date of : 1965 PCP: Ishmael Simon Gender: M Fellow: Height: 162.56 cm Nurse: Yunior Bhatti RN Weight: 81.65 kg Recycling Worker: SAEID BSA: 1.87 m2 Technologist: BMI: 30.90 kg/m2 Additional Staff: Age: 56 years cc report to: Patient Location: cc report to: [id number] Valentino Ty MD Study Type: Cardiac Stress Test Diagnosis/ICD: R94.31-Abnormal electrocardiogram [ECG] [EKG]; R00.1-Bradycardia, unspecified; R06.00-Dyspnea, unspecified Indication: Dyspnea Procedure/CPT: Stress Test Interpretation-[id number] ; Stress Test Supervision-[id number] Falls Risk: Low: Patient has low risk [...] 7. An element of chronotropic incompetency noted. [id number] Valentino Ty MD Electronically signed on 02/16/2022 at 2:52:20 PM Final Normal [facility] Cardiac Stress Test Please click on the link to view the study images [facility] Work Phone: Cardiac Stress Test MP[facility] Work Phone: Office Visit [...] Status:Hold For - Scheduling,Retrospec tive Authorization; Requested for:[id number]; Class 1 obesity with body mass index (BMI) of 30.0 to 30.9 in adult Healthy Weight Tips; Status:Complete - Retrospective Authorization; Done: [id number] Some eating tips that can help you lose weight.; Status:Complete - Retrospective Authorization; Done: [id number] Sinus bradycardia You need to stop smoking. Though it is not easy, more than half of all adult smokers have quit. We encourage you to write down all the reasons you should quit smoking and set a quit date for yourself. Ask us how we can help. You may also call [phone] for free resources and assistance.; Status:Complete - Retrospective Authorization; Done: [id number] SocHx: Current smoker Continue with our present treatment plan.; Status:Complete - Retrospective Authorization; Done: [id number] Tobacco Use Screening; Status:Complete; Done: [id number] Patient Instructions Please bring all medicines, vitamins, [...] This led to a cardiac evaluation in [place] and its not clear to me whether [...] Oral Capsule Delayed ReleaseTAKE 1 CAPSULE Daily Ckqiwg8m at bedtime Sin (more content not included)... Normal [place] Tobacco Screening.on 022 Adult depression screening assessment No [facility] Vint DO Work Phone: Fall risk assessment a) No falls within the last year [facility] Wattpad 600 DO Work Phone: Tobacco use status CPHS a) Yes M [facility] Vint DO Work Phone: Tobacco Screening. Yes [facility] 600 DO Work Phone: Covid-19 PCR (CVDTB)on SARS-CoV-2 (COVID-19) RNA KATT+probe Ql (Unsp spec) Not detected Normal NOT DETECTED [facility] Comment on above: Result Comment: This test is not yet approved or cleared by the [place] FDA. When there are no FDA-approved or cleared tests available, and other criteria are met, FDA can make tests available under an emergency access mechanism called an Emergency Use Authorization (EUA). The EUA for this test is supported by the Panel Saw Operator of Health and Human Service's (HHS's) declaration [...] consistent with SARS-CoV-2. Performed By: #### [facility] #### [facility] [address] [place] [address] Dr. Britt Mendoza Covid-19 PCR (CVDTB)on 11-07 SARS-CoV-2 (COVID-19) RNA KATT+probe Ql (Unsp spec) Not detected Normal NOT DETECTED [facility] Comment on above: Result Comment: This test is not yet approved or cleared by the [place] FDA. When there are no FDA-approved or cleared tests available, and other criteria are met, FDA can make tests available under an emergency access mechanism called an Emergency Use Authorization (EUA). The EUA for this test is supported by the Panel Saw Operator of Health and Human Service's (HHS's) declaration [...] consistent with SARS-CoV-2. Performed By: #### [facility] ####[facility] [address] [place], [place] [address]KtAtiya Mendoza XR CHEST 2 Von 10-01-2021 XR [...] FLEX JACOBS Date: 2021-10-01 09:30 Normal [facility] Ambulatory Clinical Summaryo n 03-05-2021 Ambulatory Clinical Summary {[id number]}CD:[id number] Normal [facility] Historical Records Officeon 03-05-2021 Historical Records Office [id number] #[id number]:[id number] Normal [facility] Patient Educationon 03-05-20 Patient Education Urology Erectile [...] these instructions at home: Medicines ? Take fren-ngn-mqfuxze and prescription medicines only as told by [...] of your (more content not included)... Normal [facility] Urology Office/Clinic Noteon 10-28-2021 Urology Office/Clinic Note Chief Complaint OV for [...] order. Ordered: Office Visit Level 4 Est 06008 2. Hypogonadism male (E29.1: Testicular hypofunction) noted [...] time. Ordered: Office Visit Level 4 Est 53490 3. BPH with urinary obstruction (N40.1: Benign prostatic hyperplasia with lower urinary tract symptoms) s/p Urolift September 2018. Pt is currently taking no bladder/prostate medication and is mostly satisfied with overall symptom control. has nocturia but attributes this to diuretics. Pt prefers to continue with no changes at this time. PCP checking PSAs per pt. Ordered: Office Visit Level 4 Est 03218 Orders: Urnls Dip Stick Auto w/o Microscopy POC 40230 offered f/u 1 yr but pt prefers PRN. Total time spent reviewing previous notes/results/manager continuous improvement al documents, preparing the chart, conducting the encounter with the patient and family, ordering tests/medications, and documenting the encounter was 30 minutes. Follow-up With When Contact Information SIMONE JEAN BAPTISTE DC [address] [place] [address]- Additional Instructions: Patient Education Erectile Dysfunction Problem [...] inhalation powde (more content not included)... Normal [facility] Comment on above: Result Comment: Elec tronically Signed By: DANIEL MARTINEZ, TOMEKA Priest\.br\Date and Time Signed: 03/05/21 12:24 EDT MRI PELVIS WO CONTRASTon MRI PELVIS WO CONTRAST [facility] Department of Radiology [address] [place] [id number] Patient Name: LILIANA MICHAELS : 1965 Sex: M Age: Race: White Pt. Location: 18 Patient Status: Ordered Date: 09/10/2020 3:35:00 PM Completed Date: 10/03/2020 08:34 AM Requesting Provider: SIMONE RUIZ Attending Provider: Report Copy To: Signs & Symptoms: R10.2 Pelvic and perineal pain I10 History: [place], Right FOREIGN per clinic will fax [facility] auth# [id number] 09/16/20-10/17/20 cpt code 64172 *mla Comments: Right groin to r/o an [...] spine. Electronically signed: Dinh Miller. Transcribed by: [email or web address], User Resident: Electronically Signed by: DINH MILLER @ 10/03/2020 09:57 AM Normal [facility] Comment on above: Order Comment: Right groin to r/o an adductor tear; iliopsoas bursitis or injury Operative Reporton Operative Report MR#: [id number] [facility] Pt. Name: Liliana Michaels Room #: [...] Ruiz MD Date Trans: 09/10/2020 11:40 P/mmo DN_[id number] cc: Ishmael Simon M.D. [address] [place] [address] Jo[place] [facility] Coding Summary.on 09-01-2020 Coding Summary. CD:[id number] Gh0bWw+PGhlYWQ+PE1FV NHkS96yvJYxiP9NF9oUC I6CNBWOITAKWL0PSE5dw PO8YLwtE5ZdycQr GnjhfFBzYO26NWd7CEJ1 gKbyWDvoaI7lrSFwV5f7 BfGrKG79hH67YOtvHWMt GlE7TqJuzgdctZHc L1glOoQuyBBjIsz+PHRh YmxlIHdpZHRoPScxMDAl YoMgqZjbRJ6aFh6nBYTj LWNvbGxhcHNlOiBj s4xqMZEcEZkhWZ0khJyq I9YfgWN4VPZfj6q0Kn95 dHI+UASsWDK7dRprREib y557QdGrb8jsFHA4 fHVfCYsqQTB4C13bs8B3 ZCNoHWRbJMC6aMR0bY5l sTujucmeF9XceGGvHxH0 LWA5xAComT7lyQek opwyqR6zTje+Y01WRD8P XRNQJW2YBbe8G2UaRbdo dHI+ZO87RXAaSU33tXUu yFIyn6hjbYb8UgJm CIQnDLA1gBfcJTyzk4Hk QAZtZ48ubXDmt3L0CBHi yEiqoWHhSzMbhLT5aS1p AEtcxjfjv3yihitu Gavji3zeqz81yF54B28l YPstAYOzKGP6VRApNXQy zNeqck0mkD4dWi3+IDxj x6ggc9adrHf5WqVz DGRaliCjrZihVIV7w9If Xh74L7UrdMtss7AbNmo3 rx32aLSrs6U8vFJ6AYgj QMDnqB0rLRfcOpG7 PPQaYwJrkP07pGYkTCbl Uw8brZgelHskYQ5tXJGs vewoKCVimN0oIBPemCSf aPtgEL3iINBtxcjb l376MbDlVQX4WIXkkPJm V8BzgL5aWvAkHJZnQCOc B4AsxJEgFVxbR315TVhm TbN5QKRyzaOnR9Mp UDZcoGuyKyA2d9U6Gq0Z h7LrdmnuKFQ6AOgdWPE5 XsE8HkCoZbQ0O4UwHzs7 XKWylFvwBX5cG8Xv MBNbrlamvjyzjXW9ZTNv HHAyeM92aKEwFApjAo7k p1Z9k165RYHyRNKybL54 Xq4hxDyqMCJjcGKU lR4ojrmaw0svavehZjEj JULuILr6IVa6ZDAxwQbo PwJsYBD6RtN7AWY2aHTp jV8fkSlwxrqlfA5m Oyc+N65cdZ9pZYS4YRY3 mffnOPQmekLoVT56HZ32 L9VrKtsusGQzoCB+PGRp nkPjwNffPY8jAlXm r3kfg5HhWKsvP7ZcRDYp TGwzFnq5ENHaZNT1uXT9 bW2lSGBbSSwhe0N4cLQ6 E9DwzfObcf0wt0pf UBZiWTdyZ76hmRSeb8T7 ECPamAX2NTDlyJvbRvGy oW30Tvq+AYLziLjwd6Ik Behgy2tjb1nmoRn3 IjMwJSIgdmFsaWduPSJ0 x5YdXt62X01bVSrkFXNn KIDtAGYyPSEhgGcqas5y eG4pOa9+PGNvbCB3 xCX3hQ7uKIHgHlG1YUcu Z427AhBbjWBwUforp2fi k1qgvTp1EhTzULDlozKj rLatNSN0y7RfRe03 O68iVVnzLRFbRZNqIQVu KGZtuWlopf7lqL7gVs8+ JZ3gg4ixym12rO24fBP+ SJFfKKA4dNlpEZok PCDarX5dHForPyG3GMZl JlTcbF13zZEgQEcrSv6h iAnjaGkdWE7jDLYpfufm s701JoDou6txDWMx dZRrKKgnQWU1D79gn1C1 SKIrAIGiMCW4bED4fB2c bGlnbjogbGVmdDsgdmVy bOuaUEeeBOfyC871 IHRvcDsnPlBhdGllbnQg ZaYiUBa3V2WfExd9KWGg tKsaJV1kvWCdDZepHd7u fOkbvVhxSE1bIPAm lminb095ZeEvc8cwPBDk yKKsPWwbQKC2C41ri9S7 WTHzJQRoCTO7nWO4jU2q bGlnbjogbGVmdDsg qiNqnLhaSRvjUSeeH820 IHRvcDsnPkJpcnRoIERh fDE3NR33AX19bHGfh4I2 gQR6U3KiBHBlxmbu rtolaPJ2PWQiLPOttP07 Cg1lvMbnPr1eNSCkJLY3 OARlwTPlY2CbxP7bYfNr IVQyUISmS2GqyCKa ODawH663MEkqWlJ0GREm izUtJ6BrQHMlaHgyRrK8 p2Z4Ao2NI6A9LJ66GY06 mYQxi9G3gYM6K5Vz YPGuokotevlroFV1VZKa QEAfiZ33Al2byRptTn2g WUVvWEG4KCCgnVVeN7Uo sE2lYhJcXAQsBGUm N9FxjCLfIEorQ801VStl LzS2XQCdrbVdE8PeADMz mZryVfK1v2G6Mt9VGLq6 LB71VD30iJTjf3B9 oJW1A2YrGFYgntbkmwsz iFX7CMBcUXRzsG80By6p bDopYx4aGLTuSBB2SGWd pUMdU2MufB6jSpOj WULdMWRgP5GzaMNuVOuc M007PWdzScS6SVNeveZq I4MhINOxuFrnIuK0v0K7 Ma4EZNQtZC33ICR6 oLI7HE65JG03E2MnWxkl dGFibGU+PHRhYmxlIHdp ZHRoPScxMDAlJyBzdHls EW7bUi5vLEOpZFWk iJcuuGDrWmZlh8ajMCWa TShyIG6rhXdlH8EehMO5 JWUcj3p5Tk30C83qX7Yk dXA+WANfsIB2jNE1 cX1vSuIlWiN5YUncK160 XcBrpLXaXbixs9dlt7ir xIf9WuY9WROpnhIcbFvo KVI8f8OgZd32Y82c IHdpZHRoPSIxNSUiIHZh jEqcfw4trH9iWg1+PGNv fYG8kNL3fE3gFyZnHlT9 MErsI400UqCnkBAn Jffnw9pkp8cidPi6ZdMa KSSwfvKsaSxxKSK2w2Fc Xo74A6IbeYmic1YpUgw6 ae86gCImf4Z6sOB0 X3ZkCWPiccdybALylHmn TS7hWEDupnjaTQYufZ9q BPWzC1c2CzTqNzI5CAnr G0ZffhZ6FRDyoKXa WMzcRNL8L00zj3T0BPFa DFXaGCU9vZU0uH9hkAcf bjogbGVmdDsgdmVydGlj MFrfBHeeC364PDYy vBedWYIyyZ2gXDPafLDy pGyvOY9jPFZcezvuTvtM TX1EBiooGxSXEMtcGZdp dGQ+SLZgQQB9jSee WHywAEUefN5eTKIfI3h4 QoErRdQ8WBvaT6FvXSNd jzcxFw52zP9qLvXtDcW8 CYbxS0ThcfP5CACy lGFgEZgkLFN1A67ch4N8 FXAgLENgFCD1yLX1sW0a bGlnbjogbGVmdDsgdmVy cWndARpnNJxwK904 IAElhKdpOcLqPqL1UlW9 YwQ2I2NfNbp4AJBnqXkj SR6zmHXwZDrmEc8mlXlz rLffFN0kVOJizrjn ITZjbV5kBASobYPgdHmc RE9zOSIcdtjee935YbBv LNZ6BMZhxHZfN3IcoO2k JpPuMWGxAHQeR6Bu iVRtIXteX931EGpvGoX9 KQFhsgYnM7UwCDVzzWsn WlI9j6N0Gw50AmGCLHZx czwvdGQ+PHRkIHN0 pTpyXSqqFNJakF7bWZHc I7s8CyLwDpV6YIusZ2Kb LCJimysdYq23aM6pZhKi GeC5OSqmV5UjbyL9 CNAhkUYpGYrxVXI8T02r r7M0OUNpWJOyWMQ8hZJ6 bQ0neAzsjusgfSKimZgt dmVydGljYWwtYWxp S096ETYluQljCf3nwJJ4 T7OdCse2VKZjyGrxMY6x gWCkPPqgBw5noYyegWzy EQ6dDHMrepreJZHj xL5bAUEadOSlkLklIM8b RDPdgnjis182PeOzQSP7 ZISlmQRqY4OjpL7cQuFm QKCvSSFfJ1TrnYHt LQxsK383KSyfXrA7ANSx qdPmD4HhUIDxwPvyHuQ0 w8A8Kz7LaNGaS2IeH2f4 F5KfUqmavOM+PC90 SJNiGG61mPCcmMCtc0so zUs8OrZjBJHvOLN0dWuu BLtwn4QlQIXlH96zsIPa a1B1MYIowAgsbRGt PoDhfRP6pZ4nEUnijrmv a6wfaqmnFyjau0jpkg42 zP26W02mLTnbQEVvWABw IVKkJLEfmIgtvu8g wR8aIo1+IHQeqWA8aLF9 kA7bZvLfHdP1YCvgJ084 ZfAcdWSuRpfkq7cnm8vk zSw7QaYeGBYkvlZy pYefOTP5u6DsCm74J10m IHdpZHRoPSIyMCUiIHZh fWwwyz3evK5kNg9+PC9j j4vtbo46kN96lXI+ BTHbQBQ8rEknTHytSLNt dG1tOUrsSwM8TOYeIyGl sJ18xAPqZXabJt4uyCab tZyjDJ0vWWAoeezc z894SfUkf0mpMCWrnSSd PGpyPFU2B85fw5I0TJSl DJCfWLO2mNW6pC6teHqd bjogbGVmdDsgdmVy fCllNRjkFYkzQ612CWLu zEmrVzLreSDqF8zwniRZ EY5xDtqwoOR+PHRkIHN0 iYxlLUxlOQXudB3l CRXqO7c2BhYuVgI7GSdw A4EnvwS3JREjcYYwCDSk sQIMuL7fptnpb5fwvofj RuRxEYDjGEm7MWr8 KIJyvAqnLtKrWBI5XlH5 QCM2vOBvqY7ahIkosrdk oB6yZxd+RklOOjwvdGQ+ WVRcPWQ2eKknEDwf WCIntO1lUOEuH3k1HtSe DkF3URsjI5KljpN0RNXi sKHwXFHckKSTdH3rjumh o0jtyzwfHxCuPZNw IDg3ASn0ILDvdDpkYpPf IKY6MuL3MPR8qECwgE0h oFsmhbxopO8yXrp+TVJO OjwvdGQ+PHRkIHN0 uSsdLLhpFKLxoI9aMDTh V7q7TdIfNvM0TTegJ2Tl klO0MLGafDRzANFypDFH bI4awsgfc2iinsov GaWiWMCrQVz1ITd5PRPw bMpiAeNsHRI5XtE4QHC7 kFBvlI4xvVgjxjprgN1e Oyc+WZQ0MWY1VD70 ZC32V9DzIicwrWSufTN+ PHRhYmxlIHdpZHRoPScx IWTtFzVuzTfaTQ9cFd2w ZGVyLWNvbGxhcHNl OiBj (more content not included)... Normal [facility] Auto Diffon 08-24-2020 Basophils/100 WBC (Bld) 1.0 % Normal 0.0-2.0 [facility] Comment on above: Order Comment: Order Added by Discern Expert. Performed By: #### 1 0434097, 0609635, 7038456, 94405039, 4230268, 8615327, 38605476, 96816721 ####[facility] [address] [place] [address] Basophils/Leukocytes Auto (Bld) [Pure # fraction] 0.1 E9/L Normal 0.0-0.2 [facility] Comment on above: Order Comment: Order Added by Discern Expert. Performed By: #### 1 7326943, 9413851, 5645040, 47194569, 7847720, 4393985, 84853598, 61903153 ####[facility] [address] [place] [address] Eosinophils/100 WBC (Bld) 2.5 % Normal 0.0-8.0 [facility] Comment on above: Order Comment: Order Added by Discern Expert. Performed By: #### 1 4671740, 3094638, 5201451, 37747441, 6854213, 6643197, 51894719, 60105136 ####[facility] [address] [place] [address] Eosinophils/Leukocytes Auto (Bld) [Pure # fraction] 0.3 E9/L Normal 0.0-0.5 [facility] Comment on above: Order Comment: Order Added by Discern Expert. Performed By: #### 1 2237117, 7915135, 6072213, 74323932, 8305085, 8251850, 35420432, 98353117 ####[address] [place] [address] Lymphocytes/100 WBC (Bld) 21.0 % Normal 14.0-50.0 [facility] Comment on above: Order Comment: Order Added by Discern Expert. Performed By: #### 1 1598259, 5743191, 7850619, 65217132, 2677641, 4726588, 00222546, 03336345 ####[address] [address] Lymphocytes/Leukocytes Auto (Bld) [Pure # fraction] 2.1 E9/L Normal 1.0-4.0 [facility] Comment on above: Order Comment: Order Added by Discern Expert. Performed By: #### 1 8454423, 4615618, 6696646, 61337166, 2795444, 5408463, 59071677, 29341725 ####[address] [address] Monocytes/100 WBC (Bld) 6.2 % Normal 4.0-14.0 [facility] Comment on above: Order Comment: Order Added by Discern Expert. Performed By: #### 1 5320834, 8495917, 4307124, 98797679, 0681795, 3433844, 71708072, 07931766 ####[address] [place] [address] Monocytes/Leukocytes Auto (Bld) [Pure # fraction] 0.6 E9/L Normal 0.2-1.0 [facility] Comment on above: Order Comment: Order Added by Crystal Expert. Performed By: #### 1 3985053, 2421842, 3210062, 46210728, 6460995, 7913534, 43803650, 66408509 ####[address] [place] [address] Neutrophils/100 WBC (Bld) 69.3 % Normal 36.0-75.0 [facility] Comment on above: Order Comment: Order Added by Discern Expert. Performed By: #### 1 3614245, 9908430, 7177525, 61158485, 4482954, 8498488, 50500310, 11303840 ####[facility] [address] [place] [address] Neutrophils/Leukocytes Auto (Bld) [Pure # fraction] 6.9 E9/L Normal 2.0-7.5 [facility] Comment on above: Order Comment: Order Added by Discern Expert. Performed By: #### 1 0724597, 0090865, 7776075, 41688765, 2302782, 5690992, 71025836, 82778080 ####[facility] [address] [place] [address] BMPon 08-24-2020 Creatinine [Mass/Vol] 1.1 mg/dL Normal 0.5-1.3 [facility] Comment on above: Performed By: #### 1 0680606, 7302095, 3144593, 68444226, 5118900, 0973285, 54517200, 13969752 ####[facility] [address] [place] [address] Urea nitrogen [Mass/Vol] 19 mg/dL Normal 5-21 [facility] Comment on above: Performed By: #### 1 4623392, 0463503, 8343885, 63912669, 0857360, 5829023, 77426628, 45191086 ####[facility] [address] [place] [address] Urea nitrogen/Creatinine [Mass ratio] 17 No Units Normal 10-20 [facility] Comment on above: Performed By: #### 1 4514322, 3423831, 1196275, 97836578, 6297418, 5032637, 96756023, 13175102 ####[facility] [address] [place] [address] Anion gap [Moles/Vol] 14 mmol/L Normal 6-16 [facility] Comment on above: Performed By: #### 1 7390002, 1587870, 9818312, 75196657, 5333600, 8872116, 89186025, 28211092 ####[facility] [address] [place] [address] Calcium [Mass/Vol] 9.4 mg/dL Normal 8.9-11.1 [facility] Comment on above: Performed By: #### 1 8107696, 5173830, 4604245, 26280611, 0778355, 3661166, 98720832, 50934970 ####[facility] [address] [place] [address] Chloride [Moles/Vol] 94 mmol/L Low 101-111 [facility] Comment on above: Performed By: #### 1 7382267, 4396859, 6151028, 47556096, 0362262, 1659512, 17329309, 60623271 ####[facility] [address] [place] [address] CO2 [Moles/Vol] 29 mmol/L Normal 21-31 [facility] Comment on above: Performed By: #### 1 4947518, 4016106, 2979910, 29195037, 7441764, 6907605, 35309222, 75794259 ####[facility] [address] [place] [address] Glucose [Mass/Vol] 103 mg/dL Normal 55-199 [facility] Comment on above: Result Comment: If t his glucose result represents a fasting glucose, interpretation should refer to the following reference range: 55-99 mg/dL Performed By: #### 1 9971756, 4076002, 0813160, 21477653, 7856745, 7681844, 11297212, 93015875 ####[facility] [address] [place] [address] Potassium [Moles/Vol] 4.0 mmol/L Normal 3.5-5.3 [facility] Comment on above: Performed By: #### 1 7129013, 3963773, 0738360, 95385154, 1258638, 6845230, 68066196, 08769916 ####[facility] [address] [place] [address] Sodium [Moles/Vol] 133 mmol/L Low 135-145 [facility] Comment on above: Performed By: #### 1 0215791, 0548621, 8927549, 74464947, 2422986, 5588538, 17945292, 48914773 ####[facility] [address] [place] [address] BNPon 08-24-2020 Natriuretic peptide B (Bld) [Mass/Vol] 17 pg/mL Normal 5-80 [facility] Comment on above: Performed By: #### 1 1209600, 0352133, 9928606, 78494788, 7779331, 5822525, 39431946, 55235467 ####[facility] [address] [place] [address] CBC w/ Auto Diffon Erythrocyte distribution width (RBC) [Ratio] 12.9 % Normal 10.9-14.2 [facility] Comment on above: Performed By: #### 1 5665983, 9795397, 9933308, 92889735, 0533181, 1317297, 83428107, 15415785 ####[facility] [address] [place] [address] Hematocrit (Bld) [Volume fraction] 44.4 % Normal 37.7-49.0 [facility] Comment on above: Performed By: #### 1 2187076, 5996486, 0720272, 84240829, 9116755, 9018792, 55188759, 56402696 ####[facility] [address] [place] [address] Hemoglobin (Bld) [Mass/Vol] 15.3 g/dL Normal 13.5-17.5 [facility] Comment on above: Performed By: #### 1 6626434, 9424374, 3481299, 30681715, 4501204, 0651583, 44191144, 21343078 ####[address] [place] [address] MCH (RBC) [Entitic mass] 31.5 pg Normal 27.0-34.0 [facility] Comment on above: Performed By: #### 1 2371111, 2186760, 3226222, 27891350, 9061897, 6449939, 46568839, 68607543 ####[address] [address] MCHC (RBC) [Mass/Vol] 34.4 g/dL Normal 31.4-36.0 [facility] Comment on above: Performed By: #### 1 3883227, 8916920, 8650881, 18340674, 4131220, 4460702, 60626745, 15417696 ####[address] [address] MCV (RBC) [Entitic vol] 91.6 fL Normal 80.0-100.0 [facility] Comment on above: Performed By: #### 1 5763446, 5445804, 0779673, 10875620, 8447341, 0923004, 56066785, 13624620 ####[address] [place] [address] Platelet mean volume (Bld) [Entitic vol] 8.4 fL Normal 6.4-10.8 [facility] Comment on above: Performed By: #### 1 3438119, 5018012, 2681920, 44231254, 0373563, 0949582, 01002190, 25212078 ####[address] [address] Platelets (Bld) [#/Vol] 289.0 E9/L Normal 150.0-500.0 [facility] Comment on above: Performed By: #### 1 2394181, 5355873, 2614859, 16276054, 5030059, 3678802, 17135695, 92775973 ####[facility] [address] [place] [address] RBC (Bld) [#/Vol] 4.8 E12/L Normal 4.3-5.9 [facility] Comment on above: Performed By: #### 1 4705251, 9853717, 0314342, 96661091, 6330289, 6511490, 48653259, 55559733 ####[facility] [address] [place] [address] WBC corrected for nucl RBC Auto (Bld) [#/Vol] 9.9 E9/L Normal 4.0-11.0 [facility] Comment on above: Performed By: #### 1 [id number], [id number], 0985758, [id number], 2390528, 0938128, [id number], [id number] ####[facility] [id number] [place] [address] CTA Cheston 08-24-2020 CTA Chest Exam Date/Time: [...] 370 Contrast amount in ml's: 78 Normal [facility] Consent for Treatmenton 08-07 Consent for Treatment [id number] 10 [id number] #1.00CD:127 Normal [facility] D-Dimeron 08-24-2020 Fibrin D-dimer FEU (PPP) [Mass/Vol] 845 ng/mL Abnormal 215-500 [facility] Comment on above: Result Comment: Resu lts [...] infections Liver cirrhosis Performed By: #### 1 [id number], 5018147, 2542815, [id number], 5583655, 1254713, 22226616, [id number] ####[facility] [address] [place] [address] Discharge Instructionson Discharge Instructions [id number] 040 [id number] #1.00CD:127 Normal [facility] ED Clinical Summaryon 2020 ED Clinical Summary [place] [id number] ED Clinical Summary Person Information Name: LILIANA MICHAELS [facility]ine/[facility] Age: 55 Years : 1965 Sex: Male Language: Faroese PCP: SIMONE JEAN BAPTISTE DC Marital Status: Single Phone: [phone] Visit Id: Visit Reason: Rib/trunk pain-swelling; SIDE [...] 08/24/2020 03:27:58 08/24/2020 03:27:58 08/24/2020 03:27:58 ADDRESS: [address] [place] [phone] PHYS DOC NOTES: MEDICAL INFORMATION: Prescriptions Given: New Medications [id number], [address], [place] [id number], [phone] azithromycin (Zithromax TRI-AMIRA 500 mg oral tablet) [...] Pain (Nonspecific) Follow up: With: Address: When: SIMNOE JEAN BAPTISTE [address] [place] [address] Business (1) In 1 day 08/25/2020 Comments: Patient is advised to follow-up with his primary care physician in 1 to 2 days. He is also advised to come back to the emergency department if symptoms get worse. DIAGNOSIS: 1:Rib pain on left side Normal [facility] ED Note-Physicianon 08-25-19 ED Note-Physician Basic Information [...] 08/24/20 2:30:00 EDT Rapid COVID Antigen ([facility] [place]) Orders: albuterol-ipratropiu m, 3 mL, Soln-Inh, Inhalation, Once, Stop date 08/24/20 0:16:00 EDT, STAT, Start date 08/24/20 0:16:00 EDT azithromycin, 500 mg = 1 tab(s), Oral, Daily, # 3 tab(s), Refills(s) 0, Pharmacy: [id number], 163, cm, 08/24/20 0:04:00 EDT, Height/Length Dosing, 101, kg, 08/24/20 0:04:00 EDT, Weight Dosing famotidine, 20 mg = 1 tab(s), Tab, Oral, Once, Stop date 08/24/20 0:17:00 EDT, STAT, Start date 08/24/20 0:17:00 EDT lidocaine topical, 1 patch(es), Topical, Daily, 7 patch(es), Refill(s) 0, apply 12 hours on and 12 hours off daily, [facility] #[id number], 163, cm, 08/24/20 0:04:00 EDT, Height/Length Dosing, 101, kg, 08/24/20 0:04:00 EDT, Julian (more content not included)... Normal [facility] Comment on above: Result Comment: Elec tronically [...] Document Reviewed: 11/28/2008 ExitCare? Patient Information ?2015 [employer]. This information is not intended to replace advice given to you by your health care provider. Make sure you discuss any questions you have with your health care provider. Normal [facility] ED Patient Summaryon 021 ED Patient Summary [address] [address] Patient Discharge Instructions Person Information Name: LILIANA MICHAELS Age: 55 Years Arrival Date: 08/23/2020 23:48:11 Discharge Diagnosis: 1:Rib pain on left side Primary Care Physician: SIMONE JEAN BAPTISTE DC Provider Information Primary Provider: Pia LANE, David Advanced Carry In Worker:None The exam and treatment you received in the Emergency Department were for an urgent problem and are not intended as complete care. It is important that you follow up with a doctor, nurse practitioner, or physician?s shipping and receiving assistant for ongoing care. If your symptoms [...] Address: When: SIMONE JEAN BAPTISTE [address] [place] [address] Business (1) In 1 day 08/25/2020 Comments: [...] opioids can be used to help relieve qlahdnxm-oy-vubxvi pain and are often prescribed following a [...] be struggling (more content not included)... Normal [facility] PT & PTTon 08-24-2020 aPTT Coag (PPP) [Time] 30.2 second(s) Normal 25.1-36.5 [facility] Comment on above: Result Comment: Hepa rin therapeutic range (represented by Anti-Factor Xa activity of 0.2 - 0.4 U/mL) corresponds to PTT of 56.6 - 109.0 sec. Performed By: #### 1 [id number], [id number], 1241425, 99684145, 5017319, 3978932, [id number], [id number] ####[facility] [address] [place] [address] INR Coag (PPP) [Relative time] 1.0 {INR} Invalid Interpretation Code [facility] Comment on above: Result Comment: INR results are specifically intended to assess patients stabilized on long-term Anticoagulation therapy suggested INR?s ?Less Intensive Anticoagulation? 2.0 ? 3.0 Conventional Range 3.0 ? 4.5 Performed By: #### 1 [id number], [id number], 6797093, [id number], 3647837, 0156825, 81375416, [id number] ####[facility] [address] [place] [address] PT Coag (PPP) [Time] 11.6 second(s) Normal 10.2-12.9 [facility] Comment on above: Performed By: #### 1 [id number], 7455375, 4394369, [id number], 4390956, 7008509, 99684464, [id number] ####[facility] [address] [place] [address] RAD - Preliminary Cat Scan R eporton 08-24-2020 RAD - Preliminary Cat Scan Report [id number] #[id number] Normal [facility] Rapid COVID Antigen ([facility])on 08-24-2020 Rapid COV Int NEG Ctl Pass Normal [facility] Comment on above: Performed By: #### 2 [id number] ####[facility] [address] [place] [address] Rapid COV Int POS Ctl Pass Normal [facility] Comment on above: Performed By: #### 2 [id number] ####[facility] [address] [place] [address] SARS-CoV-2 (COVID-19) RNA KATT+probe Ql (Unsp spec) Not detected Normal Not Detected [facility] Comment on above: Result Comment: The [employer]? System for Rapid Detection of SARS-CoV-2 is [...] For in vitro diagnostic use. In the [facility], only for use under an [...] or revoked sooner. Performed By: #### 2 [id number] ####[address] [address] Employed in Healthcare NO Normal [facility] Comment on above: Performed By: #### 2 [id number] ####[place] [address] [place] [address] First Test Unknown Normal [facility] Comment on above: Performed By: #### 2 [id number] ####[address] [place] [address] Hospitalized? NO Normal [facility] Comment on above: Performed By: #### 2 [id number] ####[address] [place] [address] ICU NO Normal [facility] Comment on above: Performed By: #### 2 [id number] ####[place] [address] [place] [address] ? NO Normal [facility] Comment on above: Performed By: #### 2 [id number] ####[address] [place] [address] Resides in a Congregate Care Setting NO Normal [facility] Comment on above: Performed By: #### 2 [id number] ####[place] [address] [place] [address] Symptomatic as defined by CDC YES Normal [facility] Comment on above: Performed By: #### 2 [id number] ####[address] [address] Troponin 0 Hr.on 08-24-2020 Troponin I.cardiac [Mass/Vol] 4.10 pg/mL Low 15.90-38.40 [facility] Comment on above: Result Comment: The 95% CI (Confidence Interval) PPV (Positive Predictive Value) for myocardial infarction in females is 38 pg/mL, in males 51 pg/mL. The results should be used in conjunction with clinical conditions of myocardial infarction. ([employer] High Sensitivity Troponin I Instructions For Use, [employer], December 2017) Performed By: #### 1 [id number], 1292268, 6755434, 17015365, 5984204, 0019423, 28732143, 05925059 ####[facility] [address] [place] [address] Troponin 3 Hr.on 08-24-2020 Troponin I.cardiac [Mass/Vol] 4.40 pg/mL Low 15.90-38.40 [facility] Comment on above: Result Comment: The 95% CI (Confidence Interval) PPV (Positive Predictive Value) for myocardial infarction in females is 38 pg/mL, in males 51 pg/mL. The results should be used in conjunction with clinical conditions of myocardial infarction. ([employer] High Sensitivity Troponin I Instructions For Use, [employer], December 2017) Performed By: #### 1 [id number] ####[facility] [address] [place] [address] XR Chest Single Viewon 08-24 XR Chest [...] V. Transcribed by: VIVIAN Technologist: DAT Normal [facility] eGFRon 08-24-2020 GFR/1.73 sq M.predicted among blacks MDRD (S/P/Bld) [Vol rate/Area] mL/min/{1.73_m2} Normal >=59 [facility] Comment on above: Order Comment: Order added by Discern Expert. Result Comment: eGFR is race adjusted. AA=. Performed By: #### 1 [id number], 9204390, 8577595, 77874521, 2145267, 7211428, 46607043, 33920852 ####[facility] [address] [place] [address] GFR/1.73 sq M.predicted among non-blacks MDRD (S/P/Bld) [Vol rate/Area] mL/min/{1.73_m2} Normal >=59 [facility] Comment on above: Order Comment: Order added by Discern Expert. Result Comment: Boiler Mechanic jeniffer kidney disease could be indicated at eGFR's of less than 60 mL/min/1.73m2. Kidney failure is indicated at less than 15 mL/min/1.73m2. Performed By: #### 1 5502837, 8489230, 6942512, 76152003, 3262053, 3414737, 26016863, 23984324 ####[facility] [address] [place] [address] HIP RIGHT 1 OR 2 VWS WITH PE LVISon 07-24-2020 HIP RIGHT 1 OR 2 VWS WITH PELVIS [facility] Department of Radiology [address] [place] [id number] Patient Name: LILIANA MICHAELS : 1965 [...] Electronically signed: Ana M Mariee. Transcribed by: [email or web address], User Resident: Electronically Signed by: ANA M MARIEE @ 07/24/2020 10:01 AM Normal [facility] Comment on above: Order Comment: Views (X-RAY, HIP): Radiologic Protocol HIP RIGHT 1 OR 2 VWS WITH PE LVISon 04-24-2020 HIP RIGHT 1 OR 2 VWS WITH PELVIS [facility] Department of Radiology [address] [place] [id number] Patient Name: LILIANA MICHAELS : 1965 Sex: M Age: Race: White Pt. Location: Patient Status: D Ordered Date: 04/24/2020 10:40:00 AM Completed Date: 04/24/2020 10:48 AM Requesting Provider: JEY ELISE Attending Provider: Report Copy To: Signs & Symptoms: Z96.641 Presence of right artificial hip joint I10 History: [facility] Comments: Views (X-RAY, HIP): Radiologic Protocol Exam: HIP RIGHT 1 OR 2 VWS WITH PELVIS HIP RIGHT 1 OR 2 VWS WITH PELVIS HISTORY: Hip replacement, follow-up. COMPARISON: 03/14/2020. IMPRESSION: 1. Redemonstrated hip prosthesis, no hardware complication or acute abnormality. Electronically signed: Ed España. Transcribed by: [email or web address], User Resident: Electronically Signed by: ED ESPAÑA @ 04/25/2020 08:22 AM Normal [facility] Comment on above: Order Comment: Views (X-RAY, HIP): Radiologic Protocol Operative Reporton 0 Operative Report MR#: [id number] [facility] Pt. Name: Liliana Michaels Room #: 6AB [id number] Discharge 03/15/2020 Date: Birthdate: 1965 OPERATIVE REPORT [...] a (more content not included)... Normal [facility] BASIC METABOLIC PANELon 11-0 Calcium [Mass/Vol] 8.8 mg/dL Normal 8.6-10.3 [facility] Comment on above: Order Comment: Views (X-RAY, HIP): Radiologic Protocol Performed By: #### 0 0071 ####[facility] [place] [address], [facility] Chloride [Moles/Vol] 98 mmol/L Normal 98-107 [facility] Comment on above: Order Comment: Views (X-RAY, HIP): Radiologic Protocol Performed By: #### 0 0071 ####[facility] [facility] [place] [address], [facility] CO2 [Moles/Vol] 30 mmol/L Normal 21-31 [facility] Comment on above: Order Comment: Views (X-RAY, HIP): Radiologic Protocol Performed By: #### 0 0071 ####[facility] [facility] [place] [address], [facility] Creatinine [Mass/Vol] 0.96 mg/dL Normal 0.70-1.30 [facility] Comment on above: Order Comment: Views (X-RAY, HIP): Radiologic Protocol Performed By: #### 0 0071 ####[facility] [place] [place] [address], [facility] GFR/1.73 sq M.predicted among blacks MDRD (S/P/Bld) [Vol rate/Area] mL/min/{1.73_m2} Normal >60 [facility] Comment on above: Order Comment: Views (X-RAY, HIP): Radiologic Protocol Performed By: #### 0 0071 ####[facility] [facility] [place] [address], [facility] GFR/1.73 sq M.predicted among non-blacks MDRD (S/P/Bld) [Vol rate/Area] mL/min/{1.73_m2} Normal >60 [facility] Comment on above: Order Comment: Views (X-RAY, HIP): Radiologic Protocol Performed By: #### 0 0071 ####[facility] [place] [address], [facility] Glucose [Mass/Vol] 151 mg/dL High 70-100 [facility] Comment on above: Order Comment: Views (X-RAY, HIP): Radiologic Protocol Performed By: #### 0 0071 ####[facility] [place] [address], [place] Potassium [Moles/Vol] 4.4 mmol/L Normal 3.5-5.1 [facility] Comment on above: Order Comment: Views (X-RAY, HIP): Radiologic Protocol Performed By: #### 0 0071 ####[facility] [place] [address], [place] Sodium [Moles/Vol] 133 mmol/L Low 136-145 [facility] Comment on above: Order Comment: Views (X-RAY, HIP): Radiologic Protocol Performed By: #### 0 0071 ####[facility] [place] [address], [facility] Urea nitrogen [Mass/Vol] 20 mg/dL Normal 7-25 [facility] Comment on above: Order Comment: Views (X-RAY, HIP): Radiologic Protocol Performed By: #### 0 0071 ####[facility] [place] [address], [facility] CBC COMPLETE BLOOD COUNTon 05-15-2019 Erythrocyte distribution width (RBC) [Ratio] 12.2 % Normal 11.5-15.0 [facility] Comment on above: Order Comment: No: D o not add to previous draw Performed By: #### 5 0608 #### [facility] [address] [place] [address], [facility] Hematocrit (Bld) [Volume fraction] 42.2 % Normal 39.0-50.0 [facility] Comment on above: Order Comment: No: D o not add to previous draw Performed By: #### 5 0608 #### [facility] [address] [place] [address], [facility] Hemoglobin (Bld) [Mass/Vol] 13.9 g/dL Normal 13.0-17.0 [facility] Comment on above: Order Comment: No: D o not add to previous draw Performed By: #### 5 0608 #### [facility] [address] [place] [address], [place] MCH (RBC) [Entitic mass] 31.4 pg Normal 27.0-33.0 [facility] Comment on above: Order Comment: No: D o not add to previous draw Performed By: #### 5 0608 #### [facility] [address] [place], [address] MCHC (RBC) [Mass/Vol] 32.9 g/dL Normal 32.0-35.0 [facility] Comment on above: Order Comment: No: D o not add to previous draw Performed By: #### 5 0608 #### [facility] [address] [place] [id number], [facility] MCV (RBC) [Entitic vol] 95.5 fL Normal 82.0-98.0 T [facility] Comment on above: Order Comment: No: D o not add to previous draw Performed By: #### 5 0608 #### [facility] [address] [place] [address], [facility] Nucleated RBC/100 WBC (Bld) [Ratio] 0 % Normal 0-0 [facility] Comment on above: Order Comment: No: D o not add to previous draw Performed By: #### 5 0608 #### [facility] [address] [place] [address], [facility] PLAT CNT 254 10*3/uL Normal 150-400 [facility] Comment on above: Order Comment: No: D o not add to previous draw Performed By: #### 5 0608 #### [facility] [address] [place] [address], [facility] RBC (Bld) [#/Vol] 4.42 10*6/uL Normal 4.20-5.70 [facility] Comment on above: Order Comment: No: D o not add to previous draw Performed By: #### 5 0608 #### [facility] [address] [place] [id number], [place] WBC (Bld) [#/Vol] 14.44 10*3/uL High 4.00-10.60 [facility] Comment on above: Order Comment: No: D o not add to previous draw Performed By: #### 5 0608 #### [facility] [address] [place] [address], [facility] POC GLUCOSE LABon 03-15-2020 Glucose [Mass/Vol] 193 mg/dL High 70-100 [facility] Comment on above: Performed By: #### 8 5499 #### [facility] [address] CBC W/DIFFon 03-14-2020 ABS IMM GRANS 0.2 10*3/uL Normal 0.0-0.2 [facility] Comment on above: Performed By: #### 5 0103 ####[facility] ABS NEUTROPHILS 8.0 10*3/uL High 1.6-7.6 [facility] Comment on above: Performed By: #### 5 0103 ####[facility] Basophils (Bld) [#/Vol] 0.1 10*3/uL Normal 0.0-0.2 [facility] Comment on above: Performed By: #### 5 0103 ####[facility] Basophils/100 WBC (Bld) 1.1 % High 0.0-1.0 T he [facility] Comment on above: Performed By: #### 5 0103 ####[facility] [place] [address], [facility] Eosinophils (Bld) [#/Vol] 0.3 10*3/uL Normal 0.0-0.5 [facility] Comment on above: Performed By: #### 5 0103 ####[facility] [place] [address], [facility] Eosinophils/100 WBC (Bld) 2.7 % Normal 0.0-6.0 [facility] Comment on above: Performed By: #### 5 0103 ####[facility] [place] [address], [place] Erythrocyte distribution width (RBC) [Ratio] 12.3 % Normal 11.5-15.0 [facility] Comment on above: Performed By: #### 5 0103 ####[facility] Hematocrit (Bld) [Volume fraction] 50.5 % High 39.0-50.0 [facility] Comment on above: Performed By: #### 5 0103 ####[facility] Hemoglobin (Bld) [Mass/Vol] 17.3 g/dL High 13.0-17.0 [facility] Comment on above: Performed By: #### 5 3 ####[place] [address] IMMATURE GRANS 1.4 % High 0.0-1.0 [facility] Comment on above: Performed By: #### 3 ####[place] [address] Lymphocytes (Bld) [#/Vol] 1.8 10*3/uL Normal 1.2-4.0 [facility] Comment on above: Performed By: #### 3 ####[place] [address] Lymphocytes/100 WBC (Bld) 15.6 % Low 20.0-45.0 [facility] Comment on above: Performed By: #### 3 ####[place] [address] MCH (RBC) [Entitic mass] 31.7 pg Normal 27.0-33.0 [facility] Comment on above: Performed By: #### 5 3 ####[facility] MCHC (RBC) [Mass/Vol] 34.3 g/dL Normal 32.0-35.0 [facility] Comment on above: Performed By: #### 5 0103 ####[facility] [place] [address], [facility] MCV (RBC) [Entitic vol] 92.7 fL Normal 82.0-98.0 T [facility] Comment on above: Performed By: #### 5 0103 ####[facility] [place] [address], [facility] Monocytes (Bld) [#/Vol] 0.9 10*3/uL Normal 0.1-1.0 [facility] Comment on above: Performed By: #### 5 0103 ####[facility] [facility].[address] MONOS 8.2 % Normal 5.0-12.0 [facility] Comment on above: Performed By: #### 5 0103 ####[facility] [facility] Neutrophils/100 WBC (Bld) 71.0 % Normal 40.0-72.0 [facility] Comment on above: Performed By: #### 5 3 ####[facility] [facility] Nucleated RBC/100 WBC (Bld) [Ratio] 0 % Normal 0-0 [facility] Comment on above: Performed By: #### 5 0103 ####[facility] [place] [address], [facility] PLAT CNT 301 10*3/uL Normal 150-400 [facility] Comment on above: Performed By: #### 5 0103 ####[facility] [place] [address], [facility] RBC (Bld) [#/Vol] 5.45 10*6/uL Normal 4.20-5.70 [facility] Comment on above: Performed By: #### 5 0103 ####[facility] WBC (Bld) [#/Vol] 11.22 10*3/uL High 4.00-10.60 [facility] Comment on above: Performed By: #### 5 0103 ####[facility] HIP RIGHT 1 OR 2 VWS WITH PE LVISon 03-14-2020 HIP RIGHT 1 OR 2 VWS WITH PELVIS [facility] Department of Radiology [address] [place] [id number] Patient Name: LILIANA MICHAELS : 1965 [...] purposes Electronically signed: Aria Steinberg. Transcribed by: [email or web address], User Resident: Electronically Signed by: ARIA STEINBERG @ 03/14/2020 03:44 PM Normal [facility] Comment on above: Order Comment: RT TH A POC GLUCOSE LABon 03-14-2020 Glucose [Mass/Vol] 222 mg/dL High 70-100 [facility] Comment on above: Performed By: #### 8 5499 #### [facility] [address] [place] [address], [facility] Glucose [Mass/Vol] 217 mg/dL High 70-100 [facility] Comment on above: Performed By: #### 8 5499 ####[facility] [place] [address], [facility] Glucose [Mass/Vol] 141 mg/dL High 70-100 [facility] Comment on above: Performed By: #### 8 5499 #### [facility] [address] [place] [address], [facility] PORTABLE HIP RIGHT 1 OR 2 VW S WITH PELVISon 03-14-2020 PORTABLE HIP RIGHT 1 OR 2 VWS WITH PELVIS [facility] Department of Radiology [address] [place] [address] Patient Name: LILIANA MICHAELS : [...] air Electronically signed: Aria Steinberg. Transcribed by: [email or web address], User Resident: Electronically Signed by: ARIA STEINBERG @ 03/14/2020 03:46 PM Normal [facility] Comment on above: Order Comment: Hardw are Evaluation, AP/Lateral TYPE AND SCREENon 03-14-2020 ABO INTERPRETATION O Normal [facility] Comment on above: Performed By: #### 6 2586 ####[facility] [place] [address], [place] RH INTERPRETATION Positive Normal [facility] Comment on above: Performed By: #### 6 2586 ####[facility] [place] [address], [place] Vital Signs Date Time Vital Sign Value Performing Clinician Facility 05-23-2024 08:30-0500 Body height 162.6 cm Amador Son MD Work Phone: [facility] 05-23-2024 08:30-0500 Body mass index (BMI) [Ratio] 37.76 kg/m2 Amador Son MD Work Phone: [facility] 05-23-2024 08:30-0500 Body weight 99.79 kg Amador Son MD Work Phone: [facility] 05-23-2024 08:30-0500 Diastolic blood pressure 78 mm[Hg] Amador Son MD Work Phone: [facility] 05-23-2024 08:30-0500 Heart rate 74 /min Amador Son MD Work Phone: [facility] 05-23-2024 08:30-0500 Systolic blood pressure 118 mm[Hg] Amador Son MD Work Phone: [facility] 04-24-2024 11:05-0500 Body height 162.6 cm Ishmael Simon MD Work Phone: [facility] 04-24-2024 11:05-0500 Body mass index (BMI) [Ratio] 37.76 kg/m2 Ishmael Simon MD Work Phone: [facility] 04-24-2024 11:05-0500 Body temperature 97.81 [degF] Ishmael Simon MD Work Phone: [facility] 04-24-2024 11:05-0500 Body weight 99.79 kg Ishmael Simon MD Work Phone: [facility] 04-24-2024 11:05-0500 Diastolic blood pressure 68 mm[Hg] Ishmael Simon MD Work Phone: [facility] 04-24-2024 11:05-0500 Heart rate 88 /min Ishmael Simon MD Work Phone: [facility] 04-24-2024 11:05-0500 Respiratory rate 18 /min Ishmael Simon MD Work Phone: [facility] 04-24-2024 11:05-0500 SaO2% (BldA) [Mass fraction] 95 % Ishmael Simon MD Work Phone: [facility] 04-24-2024 11:05-0500 Systolic blood pressure 116 mm[Hg] Ishmael Simon MD Work Phone: [facility] 02-06-2024 13:14-0400 Body height 162.6 cm Ishmael Simon MD Work Phone: [facility] 02-06-2024 13:14-0400 Body mass index (BMI) [Ratio] 37.25 kg/m2 Ishmael Simon MD Work Phone: [facility] 02-06-2024 13:14-0400 Body temperature 97.5 [degF] Ishmael Simon MD Work Phone: [facility] 02-06-2024 13:14-0400 Body weight 98.43 kg Ishmael Simon MD Work Phone: [facility] 02-06-2024 13:14-0400 Diastolic blood pressure 72 mm[Hg] Ishmael Simon MD Work Phone: [facility] 02-06-2024 13:14-0400 Heart rate 84 /min Ishmael Simon MD Work Phone: [facility] 02-06-2024 13:14-0400 Respiratory rate 20 /min Ishmael Simon MD Work Phone: [facility] 02-06-2024 13:14-0400 SaO2% (BldA) [Mass fraction] 97 % Ishmael Simon MD Work Phone: [facility] 02-06-2024 13:14-0400 Systolic blood pressure 134 mm[Hg] Ishmael Simon MD Work Phone: [facility] 01-13-2024 09:29-0400 Body height 162.6 cm Ishmael Simon MD Work Phone: [facility] 01-13-2024 09:29-0400 Body mass index (BMI) [Ratio] 36.39 kg/m2 Ishmael Simon MD Work Phone: [facility] 01-13-2024 09:29-0400 Body temperature 97.5 [degF] Ishmael Simon MD Work Phone: [facility] 01-13-2024 09:29-0400 Body weight 96.16 kg Ishmael Simon MD Work Phone: [facility] 01-13-2024 09:29-0400 Diastolic blood pressure 70 mm[Hg] Ishmael Simon MD Work Phone: [facility] 01-13-2024 09:29-0400 Heart rate 91 /min Ishmael Simon MD Work Phone: [facility] 01-13-2024 09:29-0400 Respiratory rate 18 /min Ishmael Simon MD Work Phone: [facility] 01-13-2024 09:29-0400 SaO2% (BldA) [Mass fraction] 97 % Ishmael Simon MD Work Phone: [facility] 01-13-2024 09:29-0400 Systolic blood pressure 120 mm[Hg] Ishmael Simon MD Work Phone: [facility] 11-09-2023 10:10-0400 Body height 162.6 cm Naima Wright [employer] Work Phone: [facility] 11-09-2023 10:10-0400 Body mass index (BMI) [Ratio] 35.27 kg/m2 Naima Wright [employer] Work Phone: [facility] 11-09-2023 10:10-0400 Body weight 93.21 kg Naima Wright [employer] Work Phone: [facility] 11-09-2023 10:10-0400 Diastolic blood pressure 66 mm[Hg] Naima Wright [employer] Work Phone: [facility] 11-09-2023 10:10-0400 Heart rate 68 /min Naima Wright [employer] Work Phone: [facility] 11-09-2023 10:10-0400 Systolic blood pressure 98 mm[Hg] Naima Wright [employer] Work Phone: [facility] 08-10-2023 13:31-0400 Body height 162.6 cm Amador Son MD Work Phone: [facility] 08-10-2023 13:31-0400 Body mass index (BMI) [Ratio] 34.67 kg/m2 Amador Son MD Work Phone: [facility] 08-10-2023 13:31-0400 Body weight 91.63 kg Amador Son MD Work Phone: [facility] 08-10-2023 13:31-0400 Diastolic blood pressure 70 mm[Hg] Amador Son MD Work Phone: [facility] 08-10-2023 13:31-0400 Heart rate 69 /min Amador Son MD Work Phone: [facility] 08-10-2023 13:31-0400 Systolic blood pressure 116 mm[Hg] Amador Son MD Work Phone: [facility] 08-05-2023 17:30-0400 Diastolic blood pressure 67 mm[Hg] Amador Son MD Work Phone: [facility] 08-05-2023 17:30-0400 Heart rate 60 /min Amador Son MD Work Phone: [facility] 08-05-2023 17:30-0400 Respiratory rate 16 /min Amador Son MD Work Phone: [facility] 08-05-2023 17:30-0400 SaO2% (BldA) [Mass fraction] 96 % Amador Son MD Work Phone: [facility] 08-05-2023 17:30-0400 Systolic blood pressure 112 mm[Hg] Amador Son MD Work Phone: [facility] 08-05-2023 12:13-0400 Body height 162.6 cm Amador Son MD Work Phone: [facility] 08-05-2023 12:13-0400 Body mass index (BMI) [Ratio] 34.17 kg/m2 Amador Son MD Work Phone: [facility] 08-05-2023 12:13-0400 Body temperature 97.5 [degF] Amador Son MD Work Phone: [facility] 08-05-2023 12:13-0400 Body weight 90.3 kg Amador Son MD Work Phone: [facility] 07-22-2023 14:38-0400 Body height 162.6 cm Amador Son MD Work Phone: [facility] 07-22-2023 14:38-0400 Body mass index (BMI) [Ratio] 34.33 kg/m2 Amador Son MD Work Phone: [facility] 07-22-2023 14:38-0400 Body weight 90.72 kg Amador Son MD Work Phone: [facility] 07-22-2023 14:38-0400 Diastolic blood pressure 90 mm[Hg] Amador Son MD Work Phone: [facility] 07-22-2023 14:38-0400 Heart rate 41 /min Amador Son MD Work Phone: [facility] 07-22-2023 14:38-0400 Systolic blood pressure 138 mm[Hg] Amador Son MD Work Phone: [facility] 07-14-2022 10:57-0500 Body height 162.56 cm Ishmael Simon Work Phone: [facility] [place] 600 DO Work Phone: 07-14-2022 10:57-0500 Body mass index (BMI) [Ratio] 32.96 kg/m2 Ishmael A Naderer Work Phone: [facility] 600 DO Work Phone: 07-14-2022 10:57-0500 Body surface area Derived from formula 1.92 m2 Ishmael A Naderer Work Phone: [facility] 600 DO Work Phone: 07-14-2022 10:57-0500 Body weight 87.09 kg Ishmael A Naderer Work Phone: [facility] 600 DO Work Phone: 07-14-2022 10:57-0500 Diastolic blood pressure 64 mm[Hg] Ishmael A Naderer Work Phone: [facility] 600 DO Work Phone: 07-14-2022 10:57-0500 Heart rate 34 /min Ishmael Rae Naderer Work Phone: [facility] 600 DO Work Phone: 07-14-2022 10:57-0500 Systolic blood pressure 118 mm[Hg] Ishmael A Naderer Work Phone: [facility] 600 DO Work Phone: 01-28-2022 09:37-0400 Body height 162.56 cm Ishmael A Naderer Work Phone: [facility] 600 DO Work Phone: 01-28-2022 09:37-0400 Body mass index (BMI) [Ratio] 30.9 kg/m2 Ishmael A Naderer Work Phone: [facility] 600 DO Work Phone: 01-28-2022 09:37-0400 Body surface area Derived from formula 1.87 m2 Ishmael A Naderer Work Phone: [facility] 600 DO Work Phone: 01-28-2022 09:37-0400 Body weight 81.65 kg Ishmael Rae Naderer Work Phone: [facility] 600 DO Work Phone: 01-28-2022 09:37-0400 Diastolic blood pressure 50 mm[Hg] Ishmael Rae Naderer Work Phone: [facility] 600 DO Work Phone: 01-28-2022 09:37-0400 Heart rate 41 /min Ishmael Rae Naderer Work Phone: [facility] 600 DO Work Phone: 01-28-2022 09:37-0400 Systolic blood pressure 112 mm[Hg] Ishmael Coronaerer Work Phone: [facility] 600 DO Work Phone: Encounters Encounter Date Encounter Type Care Provider Facility Start: 05-28-2024 End: 05-28-2024 Red Cade [facility] Comment on above: Degeneration of lumb ar intervertebral disc Start: 05-23-2024 End: 05-23-2024 Office outpatient visit 25 minutes Amador Son MD Work Phone: [facility] Comment on above: Cardiac pacemaker in situ (Primary Dx); Sick sinus syndrome (Multi); MRI safe cardiac pacemaker in situ; Abnormal EKG; Chronotropic incompetence; Sinoatrial node dysfunction (Multi); Sinus bradycardia; Current smoker; BMI 37.0-37.9, adult Start: 05-23-2024 End: 05-23-2024 Subsequent hospital visit by physician [facility] Comment on above: Sinus bradycardia; Sick sinus syndrome (Multi); Chronotropic incompetence; MRI safe cardiac pacemaker in situ Start: 05-23-2024 End: 05-23-2024 ambulatory AMADOR N [facility] Start: 04-27-2024 End: 04-27-2024 Refill Ishmael Simon MD Work Phone: [facility] Comment on above: Degeneration of lumb ar intervertebral disc Start: 04-24-2024 End: 04-24-2024 Bamboo flowsheet Ishmael Simon MD Work Phone: [facility] Start: 04-24-2024 End: 04-24-2024 Bamboo flowsheet Ishmael Simon MD Work Phone: [facility] Start: 04-24-2024 End: 04-24-2024 Clinisync Result Encounter Ishmael Simon MD Work Phone: [facility] External Department Unsolicited Start: 04-24-2024 End: 04-24-2024 Patient encounter procedure Ishmael Simon MD Work Phone: [facility] Healthcare Work Phone: Start: 04-24-2024 End: 04-24-2024 Postop follow up visit related to original px Ishmael Simon MD Work Phone: [facility] Comment on above: Medicare annual well ness visit, subsequent (Primary Dx); Type 2 diabetes mellitus with hyperglycemia, without long-term current use of insulin (CMS/HCC); Essential hypertension, benign (CMS/HCC); Class 2 severe obesity due to excess calories with serious comorbidity and body mass index (BMI) of 37.0 to 37.9 in adult (CMS/HCC) Start: 04-24-2024 End: 04-24-2024 ambulatory ISHMAEL SIMON Not Available Start: 04-16-2024 End: 04-16-2024 ambulatory Jong Reyes MD Facility:[facility] Start: 03-30-2024 End: 03-30-2024 Refill Ishmael Simon MD Work Phone: [facility] Comment on above: Degeneration of lumb ar intervertebral disc Start: 03-27-2024 End: 03-27-2024 Patient encounter procedure Ishmael Simon MD Work Phone: [facility] [place] Work Phone: Start: 03-27-2024 End: 03-27-2024 ambulatory Ishmael Simon MD Work Phone: [facility] Work Phone: Start: 03-16-2024 End: 03-16-2024 ambulatory Danielle Bergeron Facility:[facility] Start: 03-16-2024 Non-patient / Non-visit [facility] Start: 03-01-2024 End: 03-01-2024 Refill Ishmael Simon MD Work Phone: [facility] Comment on above: Degeneration of lumb ar intervertebral disc Start: 02-14-2024 End: 02-14-2024 ambulatory [facility] Start: 02-14-2024 End: 02-14-2024 Subsequent hospital visit by physician Varsha Restrepo [facility] Comment on above: Cardiac [...] 02-03-2024 Refill Ishmael Simon MD Work Phone: [facility] Comment on above: Other intervertebral disc degeneration, lumbar region; Degeneration of lumbar or lumbosacral intervertebral disc Start: 01-27-2024 End: 01-27-2024 Refill Ishmael Simon MD Work Phone: [facility] Comment on above: Degeneration of lumb ar intervertebral disc Start: 01-25-2024 End: 01-25-2024 ambulatory [facility] Start: 01-25-2024 End: 01-25-2024 Subsequent hospital visit by physician Varsha Restrepo [facility] Comment on above: Cardiac pacemaker in situ; Sinoatrial node dysfunction (Multi) Start: 01-13-2024 End: 01-13-2024 Bamboo flowsheet Ishmael Simon MD Work Phone: [facility] Start: 01-13-2024 End: 01-13-2024 Bamboo flowsheet Ishmael Simon MD Work Phone: [facility] Start: 01-13-2024 End: 01-13-2024 Office outpatient visit 25 minutes Ishmael Simon MD Work Phone: [facility] Comment on above: Type 2 diabetes randy [...] 12-30-2023 Refill Ishmael Simon MD Work Phone: [facility] Comment on above: Degeneration of lumb ar intervertebral disc Start: 12-01-2023 End: 12-01-2023 ambulatory [facility] Ambulatory Start: 11-09-2023 End: 11-09-2023 Office outpatient visit 40 minutes Naima Wright [employer] Work Phone: [facility] Comment on above: MRI safe [...] by physician [facility] Comment on above: Pacemaker Start: 11-09-2023 End: 11-09-2023 ambulatory NAIMA WRIGHT [facility] Start: 10-10-2023 End: 10-10-2023 ambulatory ISHMAEL SIMON Not Available Start: 09-26-2023 End: 09-26-2023 ambulatory AMADOR SON [facility] Start: 09-26-2023 End: 09-26-2023 Subsequent hospital visit by physician Varsha [facility] Comment on above: Cardiac pacemaker in situ; Sinoatrial node dysfunction (Multi) Start: 08-12-2023 End: 08-12-2023 [facility] Start: 08-10-2023 End: 08-10-2023 Subsequent hospital visit by physician Varsha Ultrasound [facility] Comment on above: Localized swelling o n left hand; S/P placement of cardiac pacemaker Start: 08-10-2023 End: 08-10-2023 ambulatory AMADOR SON [facility] Start: 08-10-2023 End: 08-10-2023 Office outpatient visit 25 minutes Amador Son MD Work Phone: [facility] Comment on above: Chronotropic incompe tence (Primary Dx); Abnormal stress test; Sinus bradycardia; Sick sinus syndrome (CMS/HCC); Essential hypertension, benign; BMI 34.0-34.9,adult; Current smoker Start: 08-05-2023 End: 08-05-2023 Subsequent hospital visit by physician Amador Son MD Work Phone: [facility] Comment on above: Sinus bradycardia (P rimary Dx); Chronotropic incompetence; Sick sinus syndrome (CMS/HCC); Other fatigue; Abnormal stress test; Dyspnea; Pacemaker Start: 07-22-2023 End: 07-22-2023 ambulatory [facility] Ambulatory Start: 07-22-2023 End: 07-22-2023 Encounter for preprocedural cardiovascular examination [facility] Ambulatory Start: 07-22-2023 End: 07-22-2023 Office outpatient new 60 minutes Amador Son MD Work Phone: [facility] Comment on above: Chronotropic incompe tence (Primary Dx); Sinus bradycardia; Establishing care with new doctor, encounter for; BMI 34.0-34.9,adult; Sick sinus syndrome (CMS/HCC); Simple chronic bronchitis (CMS/HCC); Current smoker; Other fatigue; Preoperative cardiovascular examination Start: 07-22-2023 End: 07-22-2023 Patient encounter status Amador Son MD Work Phone: [facility] Work Phone: Start: 07-13-2023 End: 07-13-2023 ambulatory [facility] Ambulatory Start: 07-13-2023 End: 07-13-2023 ambulatory [facility] Ambulatory Start: 10-14-2022 ambulatory NARENDRANATH LAKSHMIPATHY [...] sit 15 minutes Ishmael Simon Work Phone: [facility] 600 DO Work Phone: Start: 07-14-2022 [...] 02-16-2022 Chart Update Ishmael Simon Work Phone: [facility] 250 DO Work Phone: Start: 02-15-[address] Valentino Ty Facility:[id number] Start: 01-28-[address] Ishmael Simon Facility: Start: 01-28-2022 Office consultation new/estab patient 60 min Ishmael Simon Work Phone: [facility] 600 DO Work Phone: Start: 01-14-2022 End: 01-15-2022 ambulatory TERESO COLMENARES . Facility:[facility] Start: 01-01-2022 End: 01-02-[address] ISHMAEL SIMON Facility:[facility] Start: 12-15-2021 End: 12-15-[address] RICKY IBARRA . Facility:[facility] Start: 12-14-2021 Encounter for preprocedural laboratory examination DR RICKY IBARRA . [facility] Start: 12-12-2021 End: 12-13-[address] [...] Start: 10-03-2020 End: 10-04-2020 ambulatory SIMONE RUIZ Facility:[facility] Start: 03-26-2020 End: 04-10-2020 ambulatory JEY ELISE Facility:[facility] Start: 03-14-2020 End: 03-15-2020 ambulatory JEY ELISE Facility:[facility] Procedures Date Procedure Procedure Detail Performing Clinician Start: 05-23-2024 Ecg routine ecg w/le ast 12 lds w/i&r Amador Son MD Work Phone: Start: 05-23-2024 Program eval implant able in persn dual ld pacer Naima Wright [employer] Work Phone: Start: 04-24-2024 MLR HEMOGLOBIN A1C Ishmael Simon MD Work Phone: Start: 03-27-2024 MR lumbar spine wo con Ishmael Simon MD Work Phone: Start: 03-27-2024 XR pre/post mri xray Ma maddison Simon MD Work Phone: Start: 02-14-2024 Rem interrog pm/ldls pm/ids <90 d tech review Amador Son MD Work Phone: Start: 02-06-2024 TB UA (CLEAN/CATCH) MICROSCOPIC IF INDICATE Ishmael Simon MD Work Phone: Start: 11-09-2023 Ecg routine ecg w/le ast 12 lds w/i&r Naima Wright APRN-DOCK GRADER Work Phone: Start: 11-09-2023 Program eval implant able in persn dual ld pacer Ana M Kumari APRN-DOCK GR[employer]ER Work Phone: Start: 09-26-2023 CARDIAC DEVICE CHECK - REMOTE NAIMA WRIGHT Start: 09-26-2023 CARDIAC DEVICE CHECK - REMOTE Amador Son MD Work Phone: Start: 08-10-2023 VASC US UPPER EXTREM ITY VENOUS DUPLEX LEFT NAIMA WRIGHT Start: 08-10-2023 Dup-scan xtr veins unilateral/limited study Naima Wright [employer] Work Phone: Start: 08-05-2023 Radiologic exam ches t single view Ana M Kumari [employer] Work Phone: Start: 08-05-2023 Ecg routine ecg w/le ast 12 lds trcg only w/o i&r Ana M Kumari APRN-DOCK GR[employer]ER Work Phone: Start: 08-05-2023 Electrophysiology study Amador Son MD Work Phone: Start: 08-05-2023 Echo tthrc r-t 2d w/ wom-mode compl spec&colr d Ana M Angel APRN-DOCK GRADER Work Phone: Start: 08-05-2023 Ecg routine ecg w/le ast 12 lds trcg only w/o i&r Ana M Angel APRN[employer]DOCK GR[employer]ER Work Phone: Start: 08-05-2023 Basic metabolic pane l calcium total Ana M Angel APRN-DOCK GRADER Work Phone: Start: 07-22-2023 CASE REQUEST EP LAB MINDI RHTHAO Start: 07-22-2023 AMB REFERRAL TO CARD IAC ELECTROPHYSIOLOGY VALENTINO TY Start: 07-22-2023 ECG 12-LEAD MOURHAF TR ABOULSSI Start: 07-22-2023 Ecg routine ecg w/le ast 12 lds w/i&r Amador Son MD Work Phone: Start: 07-13-2023 HOLTER OR EVENT CARD IAC MONITOR VALENTINO TY Start: 07-13-2023 ECG 12-LEAD MOURHAF TR ABOULSSI Start: 05-07-[address] ISHMAEL CROUCH Comment on above: Performed By: #### V ITAD, PSASC #### [facility] [address] [place] [address] Dr. Britt Mendoza Start: 03-15-2020 ANESTH HIP ARTHROPLASTY SIMONE RUIZ Start: 03-15-2020 TOTAL HIP ARTHROPLASTY JEY ELISE Start: 03-14-2020 Antibody screen SIMONE BOLIVAR Comment on above: Performed By: #### 6 [id number] ####[address] Start: 08-24-2019 Colonoscopy Ishmael faith MD Work Phone: Colonoscopy Ishmael Simon Work Phone: Excision of cyst Ishmael Cazares rer Work Phone: Hernia repair Ishmael Simon Work Phone: Operation on urinary system Ishmael Simon Work Phone: Surgical repair of u pper extremity Ishmael Simon Work Phone: Total replacement of hip Mar praveena Simon Work Phone: Plan of Treatment Date Care Activity Detail Author Start: 08-23-2029 Screening for malignant neoplasm of colon [facility] Start: 04-16-2026 Glaucoma screening Diabetes: Retinopathy Screening [facility] Start: 04-24-2025 Medicare Annual Wellness (AWV) Medicare Annual Wellness (AWV) [facility] Start: 11-28-2024 End: 11-28-2024 Patient encounter procedure [facility] Start: 11-21-2024 End: 11-21-2024 Patient encounter procedure 11/21/2024 8:00 AM EDT Appointment [facility] [address] [place] [address] [facility] Start: 08-04-2024 Creatinine measurement Creatinine Level [facility] Start: 08-04-2024 Echocardiography Echocardiogram [facility] Start: 08-04-2024 Potassium measurement Potassium Level [facility] Start: 07-23-2024 End: 07-23-2024 Patient encounter procedure 07/23/2024 10:15 AM EDT Office Visit [facility] [address] [place] [address] Ishmael Simon MD [address] [place] [phone] [facility] Start: 06-13-2024 End: 06-13-2024 Patient encounter procedure 06/13/2024 9:10 AM EST Office Visit [address] [place] [id number] Valentino Ty MD [address] [facility] 2, [address] [place] [address] [facility] Start: 06-04-2024 End: 06-04-2024 Patient encounter procedure 06/04/2024 9:30 AM EST Office Visit [facility] [address] [place] [address] Ishmael Simon MD [address] [place] [phone] [facility] Start: 05-25-2024 Urine screening for protein Diabetes: Urine Protein Screening [facility] Start: 05-23-2024 End: 05-23-2024 Patient encounter procedure [facility] Start: 05-17-2024 Glaucoma screening Diabetes: Retinopathy Screening [facility] Start: 05-11-2024 End: 11-08-2024 Cardiac Device Check - In Clinic Cardiac Device Check - In Clinic Implantable Cardiac Device Routine Sinus bradycardia Sick sinus syndrome (Multi) Chronotropic incompetence MRI safe cardiac pacemaker in situ Expected: 05/11/2024 (Approximate), Expires: 11/08/2024 [facility] Service Area Work Phone: Comment on above: Expected: 05/11/2024 (Approximate), Expi res: 11/08/2024 Start: 04-24-2024 End: 04-24-2025 Hemoglobin A1c/Hemoglobin.total in Blood Hemoglobin A1c Lab Routine Type 2 diabetes mellitus with hyperglycemia, without long-term current use of insulin ([facility]) Expected: 04/24/2024 (Approximate), Expires: 04/24/2025 [facility] Work Phone: Comment on above: Expected: 04/24/2024 (Approximate), Expi res: 04/24/2025 Start: 04-24-2024 End: 04-24-2024 Patient encounter procedure [facility] Comment on above: Arrived Start: 04-10-2024 Hemoglobin A1c measurement Diabetes: Hemoglobin A1C [facility] Start: 2024 RSV High Risk: (Elderly (60+) or Population) (1 - Risk 60-74 years 1-dose series) RSV High Risk: (Elderly (60+) or Population) (1 - Risk 60-74 years 1-dose series) [facility] Start: 02-06-2024 End: 02-05-2025 Bacteria identified in Urine by Culture Urine culture (clean catch) Microbiology Routine Dysuria Expected: 02/06/2024 (Approximate), Expires: 02/05/2025 [facility] Work Phone: Comment on above: Expected: 02/06/2024 (Approximate), Expi res: 02/05/2025 Start: 02-06-2024 End: 02-05-2025 Chlamydia trachomatis and Neisseria gonorrhoeae DNA [Identifier] in Unspecified specimen by KATT with probe detection Chlamydia DNA probe, direct Microbiology Routine Acute prostatitis Pyuria Expected: 02/06/2024 (Approximate), Expires: 02/05/2025 [facility] Comment on above: Expected: 02/06/2024 (Approximate), Expi res: 02/05/2025 Start: 02-06-2024 End: 02-05-2025 Neisseria gonorrhoeae DNA assay Gonococcus DNA, PCR Microbiology Routine Dysuria Acute prostatitis Pyuria Expected: 02/06/2024 (Approximate), Expires: 02/05/2025 [facility] Comment on above: Expected: 02/06/2024 (Approximate), Expi res: 02/05/2025 Start: 02-06-2024 End: 02-05-2025 Urinalysis complete panel - Urine Urinalysis with reflex microscopic (clean catch) Lab Routine Dysuria Expected: 02/06/2024 (Approximate), Expires: 02/05/2025 [facility] Comment on above: Expected: 02/06/2024 (Approximate), Expi res: 02/05/2025 Start: 01-13-2024 End: 01-13-2024 Patient encounter procedure [facility] Comment on above: Arrived Start: 01-08-2024 COVID-19 Vaccine ( season) COVID-19 Vaccine ( season) [facility] Start: 01-08-2024 COVID-19 Vaccine ( season) COVID-19 Vaccine ( season) [facility] Start: 01-08-2024 Influenza vaccination [facility] Start: 11-21-2023 End: 11-21-2023 Patient encounter procedure 11/21/2023 8:50 AM EDT Office Visit [place] [address] [place] [address] Valentino Ty MD [address] [facility] 2, [address] [place] [address] [facility] Start: 11-09-2023 End: 08-04-2024 Cardiac Device Check - In Clinic [facility] Service Area Work Phone: Comment on above: Expected: 11/09/2023 (Approximate), Expi res: 08/04/2024 Start: 11-09-2023 End: 08-04-2024 XR Chest 2 Views [facility] Work Phone: Comment on above: Expected: 11/09/2023, Expires: Once for 1 Occurrenc es starting 11/09/2023 until 11/09/2023 Start: 11-09-2023 End: 11-09-2023 Patient encounter procedure [facility] Start: 11-03-2023 End: 11-03-2023 Patient encounter procedure 11/03/2023 8:50 AM EDT Office Visit [address] [place] [address] Valentino Ty MD [address] [facility] 2, [address] [place] [address] [facility] Start: 08-12-2023 End: 08-12-2023 Clinical Support 08/12/2023 8:30 AM EDT Clinical Support [facility] [address] [place] [phone] [facility] Start: 08-10-2023 Subsequent hospital visit by physician 08/10/2023 2:09 PM EDT Hospital Encounter [facility] [address] [place] [address] Localized swelling on left hand; S/P placement of cardiac pacemaker [facility] Comment on above: Localized swelling on left hand; S/P placement of cardiac pacemaker Start: 07-22-2023 End: 07-21-2025 US Heart Transthoracic Transthoracic Echo Complete Echocardiography Routine Sinus bradycardia Chronotropic incompetence Sick sinus syndrome (CMS/HCC) Other fatigue Preoperative cardiovascular examination Expected: 07/22/2023 (Approximate), Expires: 07/21/2025 [facility] Work Phone: Comment on above: Expected: 07/22/2023 (Approximate), Expi res: 07/21/2025 Start: 07-13-2023 FUV, Provider: Valentino Ty, Status: Pen, Time: 8:30 AM FUV, Provider: Valentino Ty, Status: Pen, Time: 8:30 AM [facility] 600 DO Work Phone: Start: 01-07-2023 COVID-19 Vaccine ( season) COVID-19 Vaccine ( season) [facility] Start: 01-07-2023 Influenza vaccination Influenza Vaccine (#1) [facility] Start: 07-14-2022 FUV, Provider: Valentino Ty, Status: Pen, Time: 10:40 AM FUV, Provider: Valentino Ty, Status: Pen, Time: 10:40 AM [facility] 600 DO Work Phone: Start: 02-15-2022 STRESS JUICE, Provider: CARLITO MCKEONI NUCLEAR 01,[id number], Status: Pen, Time: 2:00 PM STRESS JUICE, Provider: CARLITO HHVI NUCLEAR 01,[id number], Status: Pen, Time: 2:00 PM [facility] 600 DO Work Phone: Start: 02-21-2014 Zoster Vaccines (1 of 2) Zoster Vaccines (1 of 2) [facility] Start: 02-21-1986 DTaP/Tdap/Td Vaccines (1 - Tdap) DTaP/Tdap/Td Vaccines (1 - Tdap) [facility] Start: 02-21-1983 Hepatitis B Vaccines (1 of 3 - 19+ 3-dose series) Hepatitis B Vaccines (1 of 3 - 19+ 3-dose series) [facility] Start: 02-21-1983 Pneumococcal vaccination Pneumococcal Vaccine (1 of 2 - PCV) [facility] Start: 02-21-1983 Urine screening for protein Diabetes: Urine Protein Screening [facility] Start: 02-21-1982 Diabetes mellitus screening Diabetes Screening [facility] Start: 02-21-1982 Hepatitis C screening Hepatitis C Screening [facility] Start: 02-21-1974 Diabetic foot examination Diabetes: Foot Exam [facility] Start: 02-21-1974 Glaucoma screening Diabetes: Retinopathy Screening [facility] Start: 02-21-1970 Pneumococcal Vaccine: Pediatrics (0 to 5 Years) and At-Risk Patients (6 to 64 Years) (1 - PCV) Pneumococcal Vaccine: Pediatrics (0 to 5 Years) and At-Risk Patients (6 to 64 Years) (1 - PCV) [facility] Start: 02-21-1970 Pneumococcal Vaccine: Pediatrics (0 to 5 Years) and At-Risk Patients (6 to 64 Years) (1 of 2 - PCV) Pneumococcal Vaccine: Pediatrics (0 to 5 Years) and At-Risk Patients (6 to 64 Years) (1 of 2 - PCV) [facility] Start: 02-21-1965 MMR Vaccines (1 of 1 - Standard series) MMR Vaccines (1 of 1 - Standard series) [facility] Start: 1964 COVID-19 Vaccine (#1) COVID-19 Vaccine (#1) [facility] [facility] Start: 1965 Annual wellness visit Welcome to Medicare Visit [facility] Start: 1964 Creatinine measurement Creatinine Level [facility] Start: 1964 Echocardiography Echocardiogram [facility] Start: 1964 Hemoglobin A1c measurement Diabetes: Hemoglobin A1C [facility] Start: 1964 Hepatitis B Vaccines (1 of 3 - 3-dose series) Hepatitis B Vaccines (1 of 3 - 3-dose series) [facility] Start: 1964 HIV screening HIV Screening [facility] Start: 1964 Lipid panel Lipid Panel [facility] Start: 1964 Medicare Annual Wellness (AWV) Medicare Annual Wellness (AWV) [facility] Start: 1964 Medicare Annual Wellness Visit Medicare Annual Wellness Visit (AWV) [facility] Start: 1964 Potassium measurement Potassium Level [facility] Start: 1964 Screening for malignant neoplasm of colon [facility] Start: 1964 Urine screening for protein Diabetes: Urine Protein Screening [facility] End: 03-15-2025 Basic metabolic 2000 panel - Serum or Plasma Basic Metabolic Panel Lab Routine Sinus bradycardia Chronotropic incompetence Sick sinus syndrome (CMS/HCC) Other fatigue 1 Occurrences starting 07/22/2023 until 07/21/2024 [facility] Work Phone: Comment on above: 1 Occurrences starting 07/22/2023 until 07/21/2024 End: 11-20-2025 Cardiac Device Check - In Clinic Cardiac Device Check - In Clinic Implantable Cardiac Device Routine Cardiac pacemaker in situ 1 Occurrences starting 05/23/2024 until 11/20/2025 [facility] Work Phone: Comment on above: 1 Occurrences starting 05/23/2024 until 11/20/2025 End: 01-25-2024 Cardiac Device Check - Remote [facility] Work Phone: Comment on above: Once for 1 Occurrences starting 01/25/20 24 until 01/25/2024 End: 11-20-2024 Cardiac Device Check - Remote Cardiac Device Check - Remote Implantable Cardiac Device Routine Cardiac pacemaker in situ 52 Occurrences starting 05/23/2024 until 11/20/2024 [facility] Work Phone: Comment on above: 52 Occurrences starting 05/23/2024 until 11/20/2024 End: 07-21-2024 CBC panel - Blood by Automated count CBC Lab Routine Sinus bradycardia Chronotropic incompetence Sick sinus syndrome (CMS/HCC) Other fatigue 1 Occurrences starting 07/22/2023 until 07/21/2024 [facility] Work Phone: Comment on above: 1 Occurrences starting 07/22/2023 until 07/21/2024 ECG 12 lead (Clinic Performed) ECG 12 lead (Clinic Performed) ECG Routine Sinus bradycardia 11/09/2023 10:38 AM T [facility] Work Phone: ECG 12 lead STAT ECG 12 lead STA T ECG STAT 08/05/2023 12:30 PM EDT [facility] Work Phone: ECG 12 lead STAT ECG 12 lead STA T ECG STAT 08/05/2023 5:12 PM EDT [facility] Work Phone: PPM IMPLANT DC PPM IMPLANT DC S inus bradycardia Chronotropic incompetence Sick sinus syndrome (CMS/HCC) Other fatigue [facility] Work Phone: End: 07-21-2024 Prothrombin time (PT) Protime-INR Lab Routine Sinus bradycardia Chronotropic incompetence Sick sinus syndrome (CMS/HCC) Other fatigue 1 Occurrences starting 07/22/2023 until 07/21/2024 [facility] Work Phone: Comment on above: 1 Occurrences starting 07/22/2023 until 07/21/2024 Payers Date Payer Category Payer Self-pay 2023 Medicare [id number] 2023 Medicare (Managed Care) 1.2. [id number] 2023 Private Health Insurance [id number] 2023 Private Health Insurance 1964 Unknown [id number] 2.16.840.1.778499.3.579.2.647 1964 Unknown [id number] 2.16.840.1.374249.3.579.2.647 1964 Unknown [id number] 2.16.840.1.256662.3.579.2.647 1964 Unknown [id number] 2.16.840.1.465362.3.579.2.1068 1964 Unknown [id number] 2.16.840.1.984058.3.579.2.356 1964 Unknown [id number] 2.16.840.1.719866.3.579.2.356 1964 Unknown [id number] 2.16.840.1.716860.3.579.2.593 1964 Unknown [id number] 2.16.840.1.931265.3.579.2.593 1964 Unknown [id number] 2.16.840.1.962103.3.579.2.593 1964 Unknown [id number] 2.16.840.1.866443.3.579.2.593 1964 Unknown [id number] 2.16.840.1.351955.3.579.2.593 1964 Unknown [id number] 2.16.840.1.447120.3.579.2.593 1964 Unknown [id number] 2.16.840.1.754975.3.579.2.593 1964 Unknown [id number] 2.16.840.1.095083.3.579.2.593 1964 Unknown [id number] 2.16.840.1.357223.3.579.2.593 1964 Unknown [id number] 2.16.840.1.729320.3.579.2.593 1964 Unknown [id number] 2.16.840.1.435190.3.579.2.593 1964 Unknown [id number] 2.16.840.1.632604.3.579.2.593 1964 Unknown [id number] 2.16.840.1.142501.3.579.2.593 1964 Unknown [id number] 2.16.840.1.292739.3.579.2.593 1964 Unknown [id number] 2.16.840.1.950256.3.579.2.593 1964 Unknown [id number] 2.16.840.1.366558.3.579.2.593 1964 Unknown [id number] 2.16.840.1.270112.3.579.2.593 1964 Unknown [id number] 2.16.840.1.232729.3.579.2.593 1964 Unknown [id number] 2.16.840.1.248015.3.579.2.593 1964 Unknown [id number] 2.16.840.1.588993.3.579.2.593 1964 Unknown [id number] 2.16.840.1.056706.3.579.2.593 1964 Unknown [id number] 2.16.840.1.068890.3.579.2.593 1964 Unknown [id number] 2.16.840.1.050099.3.579.2.593 1964 Unknown [id number] 2.16.840.1.298486.3.579.2.593 1964 Unknown [id number] 2.16.840.1.816638.3.579.2.1259 1964 Unknown [id number] 2.16.840.1.466585.3.579.2.1259 1964 Unknown [id number] 2.16.840.1.102178.3.579.2.1259 1964 Unknown [id number] 2.16.840.1.439062.3.579.2.1259 1964 Unknown [id number] 2.16.840.1.942055.3.579.2.196 1964 Unknown [id number] 2.16.840.1.082416.3.579.2.1244 1964 Unknown [id number] 2.16.840.1.418992.3.579.2.1244 1964 Unknown [id number] 2.16.840.1.638816.3.579.2.1244 1964 Unknown [id number] 2.16.840.1.144437.3.579.2.1244 1964 Unknown [id number] 2.16.840.1.311824.3.579.2.1244 1964 Unknown [id number] 2.16.840.1.424107.3.579.2.1244 1964 Unknown [id number] 2.16.840.1.284128.3.579.2.1244 1964 Unknown [id number] 2.16.840.1.089298.3.579.2.124 1964 Unknown [id number] 2.16.840.1.047000.3.579.2.1246 1964 Unknown [id number] 2.16.840.1.312850.3.579.2.1245 1964 Unknown [id number] 2.16.840.1.197662.3.579.2.124 1964 Unknown [id number] 2.16.840.1.149957.3.579.2.1245 1964 Unknown [id number] 2.16.840.1.246802.3.579.2.1246 1964 Unknown [id number] 2.16.840.1.159365.3.579.2.1245 1964 Unknown [id number] 2.16.840.1.243838.3.579.2.1246 1960 Medicaid [id number] 1960 Medicare [id number] Unknown [id number] Unknown Unknown [facility] [id number] Unknown [id number] 2.16.840.1.226873.3.579.2.531 Unknown [id number] 2.16840.1.417933.3.579.2.531 Social History Date Type Detail Facility Start: 07-13-2023 End: 10-09-2023 No alcohol use No alcohol use [facility] Comment on above: 1 pack daily; Start: 04-13-2023 End: 07-13-2023 Tobacco smoking status NHIS Smokes tobacco daily [facility] History of tobacco use Cigarette Smoker [facility] Work Phone: Start: 04-13-2023 End: 07-13-2023 Tobacco use and exposure Smokeless tobacco non-user [facility] Work Phone: Start: 07-22-2023 End: 04-24-2024 Alcohol intake Lifetime non-drinker (finding) [facility] Work Phone: Start: 07-13-2023 End: 10-09-2023 Tobacco use panel [facility] Start: 1965 Sex Assigned At Not on file [facility] Work Phone: Start: 07-12-2023 End: 05-23-2024 Exposure to SARS-CoV-2 (event) Not sure [facility] Frequency of Social Gatherings with Friends and Family Not on file [facility] Do you belong to any clubs or organizations such as mormonism groups, unions, fraternal or athletic groups, or [...] Healthcare Start: 07-06-2019 Tobacco smoking stat us DEIS Smoker (finding) [facility] Start: 03-17-2024 End: 03-28-2024 Sex Male (finding) [facility] Start: 1965 Sex Assigned At Male [facility] Medical Equipment Procedure Code Equipment Code Equipment Origin al Text Equipment Identifier Dates Lead, Capsurefix Novus, 52 Cm - [id number] Start: 08-05-2023 Lead, Capsurefix Novus, 45 Cm - [id number] Start: 08-05-2023 Pacemaker, Dual Chamber, [place] Mri Xt Dr - [id number] Start: 08-05-2023 Clinical Notes 08-31-2020 to [...] A DAY cetirizine (ZYRTEC) 10 mg, Nightly qhuevvfvxiz-idebhsqch-qxlpzhuu (TRELEGY-ELLIPTA) 100-62.5-25 mcg blister with device 1 [...] sinus bradycardia status post dual-chamber pacemaker implant (Spiracur [place] XT DR MRI) on August 05, 2023. [...] this document. documented in this encounter [facility] Work Phone: 05-23-2024 Instructions Jazz Flynn [...] remote checks at 3 and 9 months Jazz Blackwell RN, AM SCRIBING FOR, AND IN THE PRESENCE OF DR. AMADOR SON MD documented in this encounter [facility] Work Phone: 04-24-2024 History of Present illness Narrative Associated Problem(s): Class 2 severe obesity due to excess calories with serious comorbidity and body mass index (BMI) of 37.0 to 37.9 in adult ([facility]) Weight up 28 pounds in past year. Add ozempic. Associated Problem(s): Essential hypertension, benign ([facility]) BP controlled and monitor PRN. Associated Problem(s): Type 2 diabetes mellitus with hyperglycemia, without long-term current use of insulin ([facility]) Not checking BS and due [...] Items Addressed This Visit Essential hypertension, benign ([facility]) BP controlled and monitor PRN. Type 2 diabetes mellitus with hyperglycemia, without long-term current use of insulin ([facility]) Not checking BS and due for A1C. Add ozempic. Relevant Medications semaglutide (Ozempic, 0.25 or 0.5 MG/DOSE,) 2 MG/1.5ML solution pen-injector Other Relevant Orders Hemoglobin A1c Class 2 severe obesity due to excess calories with serious comorbidity and body mass index (BMI) of 37.0 to 37.9 in adult ([facility]) Weight up 28 pounds in past year. [...] daily Aspirin therapy. documented in this encounter [facility] 02-06-2024 History of Present illness Narrative [...] DNA probe, direct documented in this encounter [facility] 01-13-2024 History of Present illness Narrative [...] is alert. Assessment/Plan documented in this encounter [facility] 11-09-2023 History of Present illness Narrative [...] DAY cetirizine (ZYRTEC) 10 mg, oral, Nightly szxjdulxtkb-vcdsjznii-selhlpjj (TRELEGY-ELLIPTA) 100-62.5-25 mcg blister with device 1 [...] 68 bpm, prolonged AV conduction with a IA interval of 220 ms, QRS durations 100 [...] dual-chamber pacemaker implant (Medtronic Kae XT DR MRI) on August 05, 2023. [...] this document. documented in this encounter [facility] Work Phone: 08-10-2023 History of Present [...] some point he had some evaluation in [place] that shows no significant obstructive coronary disease [...] night however but few episodes in the marble ceiling installer hours were also noted 5. No symptoms [...] Diagnosis Date Arrhythmia CHF (congestive heart failure) ([facility]) COPD (chronic obstructive pulmonary disease) ([facility]) Hypertension Social History Social History [...] breakfast cetirizine (ZYRTEC) 10 mg, oral, Nightly nopcllzktiw-mnwvuszvk-oqnhekig (TRELEGY-ELLIPTA) 100-62.5-25 mcg blister with device 1 [...] this document. documented in this encounter [facility] Work Phone: 08-10-2023 Instructions Vero Mccarthy [...] Son MD documented in this encounter [facility] Work Phone: 08-05-2023 Nurse Note Patient discharge instructions reviewed with patient and , verbalized understanding. Lt chest dressing remains dry/intact, no hematoma, no ecchymosis. Patient able to teachback site care instructions, follow up appointments. IV x2 removed and patient discharged to home via w/c. [facility] 08-05-2023 Nurse Note Patient discharge instructions [...] and ice pack over site. Sterling from [employer] in room speaking to Pt and SO educating on home device monitor. Pt returned to room after echocardiogram. Denies needs at this time. documented in this encounter [facility] Work Phone: 08-05-2023 Nurse Note Patient sitting up in chair, denies any complaints of incisional pain. Lt upper chest incision remains dry/intact. Will begin discharge instructions. [facility] Work Phone: 08-05-2023 Nurse Note Patient ambulated to BR, gait steady. Pacer rep has already met with patient and . Lt upper chest dressing remains dry/intact. Lt arm in immobilizer and ice pack over site. [facility] Work Phone: 08-05-2023 Note Formatting of this n ote might be different from the original. Post EKG and CXR performed at bedside. Pt denies needs at this time. Left chest remains soft and stable with no hematoma or oozing. [facility] Work Phone: 08-05-2023 Miscellaneous Notes Post [...] with patient. documented in this encounter [facility] Work Phone: 08-05-2023 Hospital Discharge instructions Ana M Kumari, LEATHER DRIER-DOCK GRADER - 08/05/2023 5:00 PM EDT Images from [...] your arm above shoulder level. Do not picker / packer items that weigh greater than 10 lbs [...] have been instructed by the device company loan servicing representative regarding remote home monitoring. There are [...] sent through Care Everywhere.Pacemaker Insertion Discharge Instructions (Faroese)documented in this encounter [facility] Work Phone: 08-05-2023 Note Formatting of [...] Pt denies further needs at this time. T [facility] Work Phone: 08-05-2023 Note Table formatting [...] of infection. The patient should call the video game technician immediately if symptoms recur, or for any problems. The patient has been instructed accordingly. 2. Follow up with [facility] office in seven days for post-operative wound [...] model number W1 DR 017 number [id number]. Right atrial lead Medtronic 5076/45 serial number [id number] 8 mm [id number]. Imp (more content not included)... [id number] 08-05-2023 Note Formatting of this n ote might be different from the original. Sedation Plan ASA 2 Mallampati class: II. Risks, benefits, and alternatives discussed with patient. 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 No symptoms [...] breakfast cetirizine (ZYRTEC) 10 mg, oral, Nightly nhczezslmzf-kgujwplxv-kmimxxdy (TRELEGY-ELLIPTA) 100-62.5-25 mcg blister with device 1 [...] was utilized to prepare this document. 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 No symptoms [...] breakfast cetirizine (ZYRTEC) 10 mg, oral, Nightly ufcidwsshhi-veaabkrfz-vacdwxhu (TRELEGY-ELLIPTA) 100-62.5-25 mcg blister with device 1 [...] this document. documented in this encounter [facility] Work Phone: 08-05-2023 Nurse Note Sterling from [employer] in room speaking to Pt and SO educating on home device monitor. [facility] 08-05-2023 Nurse Note Pt returned to room after echocardiogram. Denies needs at this time. 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 No symptoms [...] breakfast cetirizine (ZYRTEC) 10 mg, oral, Nightly qoqmxohqhxj-tejqihykn-mniizkme (TRELEGY-ELLIPTA) 100-62.5-25 mcg blister with device 1 [...] this document. documented in this encounter [facility] Work Phone: 07-22-2023 Instructions Jazz Flynn [...] SON MD documented in this encounter [facility] Work Phone: 07-20-2022 Note CONSULTATION PROCEDURE [...] right medial portion of his leg. [facility] 05-07-2022 Note CONSULTATION CONSULTATION DATE: 05/07/2022 [...] He is under the care of Dr. Stepanic for his bilateral carpal tunnel. He does [...] three months' time unless otherwise indicated. [facility] 01-14-2022 Note CONSULTATION CONSULTATION DATE: 01/14/2022 [...] it was recommended that he see a table assembler, which he did do. He did a Holter monitor study and is following up with his table assembler on 01/28/2022. Current medications include gabapentin 300 [...] agrees with the plan of care. [facility] 11-19-2021 Note CONSULTATION CONSULTATION DATE: 11/19/2021 [...] to S1. 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 [facility] Signed and Approved by: TERESO COLMENARES . 11/27/2021 14:13:00 [facility] 10-22-2021 Note CONSULTATION CONSULTATION DATE: 10/22/2021 [...] patient agrees with the plan of care. [facility] Signed and Approved by: TERESO COLMENARES . 11/04/2021 16:23:00 [facility] 10-01-2021 Note CONSULTATION CONSULTATION DATE: 10/01/2021 [...] shape. He has seen Dr. Nunn in [place] in the past regarding his back, and [...] Patient agrees with the plan of care. [facility] Signed and Approved by: TERESO COLMENARES . 10/08/2021 16:01:00 [facility] 08-31-2020 Note Microbiology PROCEDURE: Blood Culture [...] Locations R1: This test was performed at: [facility], [address] [place] [address], [address] [place] [address], [facility] Comment on above: Performed By: #### [id number] ####[address] [place] [address] 08-31-2020 Note Microbiology PROCEDURE: Blood Culture Charcoal [...] Locations R1: This test was performed at: [facility], [address] [place] [address], [address] [place] [address], [facility] Comment on above: Performed By: #### [id number] ####[address] [address] Evaluation note Diagnosis 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 Sinus bradycardia Other specified cardiac dysrhythmias Establishing care with new doctor, encounter for BMI 34.0-34.9,adult Sick sinus syndrome (CMS/HCC) Sinoatrial node dysfunction Simple chronic bronchitis (CMS/HCC) Simple chronic bronchitis Current smoker Other fatigue Preoperative cardiovascular examination Pre-operative cardiovascular examination documented in this encounter [facility] Work Phone: Evaluation note* Diagnosis Other [...] Other fatigue documented in this encounter [facility] Work Phone: Evaluation note* Diagnosis Localized swelling on left hand S/P placement of cardiac pacemaker 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 Abnormal stress test Other nonspecific abnormal cardiovascular system function study Sinus bradycardia Other specified cardiac dysrhythmias Sick sinus syndrome (CMS/HCC) Sinoatrial node dysfunction Essential hypertension, benign BMI 34.0-34.9,adult Current smoker documented in this encounter [facility] Work Phone: Evaluation note* Diagnosis Localized swelling on left hand S/P placement of cardiac pacemaker documented in this encounter [facility] Work Phone: Evaluation note* Diagnosis Cardiac pacemaker in situ Sinoatrial node dysfunction (Multi) Sinoatrial node dysfunction documented in this encounter [facility] Work Phone: Evaluation note* Diagnosis Cardiac pacemaker in situ Sinoatrial node dysfunction (Multi) Sinoatrial node dysfunction documented in this encounter [facility] Work Phone: Evaluation note* Diagnosis Type [...] lumbosacral intervertebral disc documented in this encounter [facility] noteNo assessment [facility] Work Phone: Evaluation note* Diagnosis MRI [...] Current smoker documented in this encounter [facility] Work Phone: Evaluation note* Diagnosis Pacemaker Cardiac pacemaker in situ documented in this encounter [facility] Work Phone: Evaluation note* Diagnosis Type [...] without long-term current use of insulin (CMS/HCC) Essential hypertension, benign (CMS/HCC) Essential hypertension, benign Class 2 severe obesity due to excess calories with serious comorbidity and body mass index (BMI) of 37.0 to 37.9 in adult ([facility]) documented in this encounter [facility] HealthcareEvaluation note* Diagnosis Cardiac pacemaker in situ Sinoatrial node dysfunction (Multi) Sinoatrial node dysfunction documented in this encounter [facility] Work Phone: Evaluation note* Diagnosis Degeneration of lumbar intervertebral disc Degeneration of lumbar or lumbosacral intervertebral disc documented in this encounter [facility] HealthcareEvaluation note* Diagnosis Type 2 diabetes [...] (BMI) 35.0-35.9, adult documented in this encounter [facility] Healthcare[facility] note* Diagnosis Degeneration of lumbar intervertebral disc Degeneration of lumbar or lumbosacral intervertebral disc documented in this encounter [facility] HealthcareEvaluation note* Diagnosis Other intervertebral disc degeneration, lumbar region Degeneration of lumbar or lumbosacral intervertebral disc documented in this encounter [facility] Healthcare[facility] note* Diagnosis Dysuria- Primary Acute prostatitis Pyuria Other nonspecific finding on examination of urine documented in this encounter [facility] Healthcare[facility] note* Diagnosis Type 2 diabetes [...] without long-term current use of insulin (CMS/HCC) Essential hypertension, benign (CMS/HCC) Essential hypertension, benign Class 2 severe obesity due to excess calories with serious comorbidity and body mass index (BMI) of 37.0 to 37.9 in adult (CMS/HCC) Degeneration of lumbar intervertebral disc Degeneration of lumbar or lumbosacral intervertebral disc [facility] Cardiac pacemaker in situ- Primary Sick sinus syndrome (Multi) Sinoatrial node dysfunction MRI safe cardiac pacemaker in situ Abnormal EKG Nonspecific abnormal electrocardiogram (ECG) (EKG) Chronotropic incompetence Other specified conduction disorder Sinoatrial node dysfunction (Multi) Sinoatrial node dysfunction Sinus bradycardia Other specified cardiac dysrhythmias Current smoker BMI 37.0-37.9, adult documented in this encounter [facility] Work Phone: Evaluation note* Diagnosis Sinus bradycardia Other specified cardiac dysrhythmias Sick sinus syndrome (Multi) Sinoatrial node dysfunction Chronotropic incompetence Other specified conduction disorder MRI safe cardiac pacemaker in situ documented in this encounter [facility] Work Phone: Evaluation note* Diagnosis Type [...] without long-term current use of insulin (CMS/HCC) Essential hypertension, benign (CMS/HCC) Essential hypertension, benign Class 2 severe obesity due to excess calories with serious comorbidity and body mass index (BMI) of 37.0 to 37.9 in adult (CMS/HCC) Degeneration of lumbar intervertebral disc Degeneration of lumbar or lumbosacral intervertebral disc [facility] Patient is here for cardiovascular evaluation for second opinion in regard to documents resting sinus bradycardia. The patient is 56-year-old with history of tobacco use and COPD was evaluated recently due to shortness of breath and his stress test showed questionable inferior wall ischemia. This led to a cardiac evaluation in [place] and its not clear to me whether [...] ischemic evaluation * 5 follow-up in [address] [place] [address] 600 DO Work Phone: History of Present illness Narrative* Patient is here for cardiovascular evaluation for second opinion in regard to documents resting sinus bradycardia. The patient is 56-year-old with history of tobacco use and COPD was evaluated recently due to shortness of breath and his stress test showed questionable inferior wall ischemia. This led to a cardiac evaluation in [place] and its not clear to me whether [...] ischemic evaluation * 5 follow-up in 6 [facility] Work Phone: History of Present illness Narrative* Patient is here for cardiovascular evaluation for second opinion in regard to documents resting sinus bradycardia. The patient is 56-year-old with history of tobacco use and COPD was evaluated recently due to shortness of breath and his stress test showed questionable inferior wall ischemia. This led to a cardiac evaluation in [place] and its not clear to me whether [...] ischemic evaluation * 5 follow-up in 6 [facility] Work Phone: History of Present illness [...] ischemic evaluation. He underwent cardiac catheterization in [place] which showed no significant obstructive disease * [...] EKG or earlier if the need arise [facility] 600 DO Work Phone: Reason for visit [...] Date Expiration Date Visits Requested Visits Authorized [id number] Pending Review Perform Procedure 11/09/2023 11/08/2024 1 1 [facility] Work Phone: Summary Purpose Family History Unknown [...] Preoperative cardiovascular examination Procedures Transthoracic Echo Complete IA ECHO TTHRC R-T 2D W/WOM-MODE COMPL SPEC&COLR D Amador Son MD [address] [address] Referral ID Status Reason Start Date Expiration Date Visits Requested Visits Authorized [id number] Pending Review Perform Procedure 07/22/2023 07/21/2024 1 1 Specialty Diagnoses / Procedures Referred By Contac t Referred To Contact Diagnoses Sinus bradycardia Establishing care with new doctor, encounter for Procedures ECG 12 lead (Clinic Performed) Amador Son MD [address] [address] Referral ID Status Reason Start Date Expiration Date V isits Requested Visits Authorized [id number] Authorized 07/22/2023 07/21/2024 1 1 Specialty Diagnoses / Procedures Referred By Contac t Referred To Contact Radiology Diagnoses Pacemaker Procedures XR chest 2 views Ana M Kumari, LEATHER DRIER-DOCK GRADER [address] [facility] Medical Office Bldg, [address] [place] [address] Referral ID Status Reason Start Date Expiration Date Visits Requested Visits Authorized [id number] Authorized Perform Procedure 08/05/2023 08/04/2024 1 1 Specialty Diagnoses / Procedures Referred By Contac t Referred To Contact Cardiology Diagnoses Pacemaker Procedures Cardiac Device Check - In Clinic Ana M Kumari, LEATHER DRIER-DOCK GRADER [address] [facility], [address] [address] Referral ID Status Reason Start Date Expiration Date Visits Requested Visits Authorized [id number] Pending Review Perform Procedure 08/05/2023 08/04/2024 1 1 Specialty Diagnoses / Procedures Referred By Contac t Referred To Contact Cardiology Diagnoses Localized swelling on left hand S/P placement of cardiac pacemaker Procedures Vascular US upper extremity venous duplex left Niama Wright LEATHER DRIER-DOCK GRADER [address] [facility], [address] [address] Referral ID Status Reason Start Date Expiration Date Visits Requested Visits Authorized [id number] Authorized Perform Procedure 08/09/2023 08/08/2024 1 1 Specialty Diagnoses / Procedures Referred By Contac t Referred To Contact Cardiology Diagnoses Cardiac pacemaker in situ Sinoatrial node dysfunction (Multi) Procedures Cardiac Device Check - Remote Amador Son MD [address] [address] Referral ID Status Reason Start Date Expiration Date Visits Requested Visits Authorized [id number] Pending Review Perform Procedure 08/08/2023 08/07/2024 1 1 Specialty Diagnoses / Procedures Referred By Contac t Referred To Contact Cardiology Diagnoses Sinus bradycardia Sick sinus syndrome (Multi) Chronotropic incompetence MRI safe cardiac pacemaker in situ Procedures Cardiac Device Check - In Clinic Naima Wright LEATHER DRIER-DOCK GRADER [address] [address] Referral ID Status Reason Start Date Expiration Date Visits Requested Visits Authorized [id number] Pending Review Perform Procedure 11/09/2023 11/08/2024 1 1 Specialty Diagnoses / Procedures Referred By Contac t Referred To Contact Cardiology Diagnoses Sick sinus syndrome (Multi) MRI safe cardiac pacemaker in situ Procedures Follow Up In Cardiology Naima Wright LEATHER DRIER-DOCK GRADER [address] [facility], [facility] [address] [place] [address] Amador Son MD [address] [facility] [address] [place] [address] Referral ID Status Reason Start Date Expiration Date V isits Requested Visits Authorized [id number] Authorized 11/09/2023 11/08/2024 1 1 Specialty Diagnoses / Procedures Referred By Contac t Referred To Contact Diagnoses Sinus bradycardia Procedures ECG 12 lead (Clinic Performed) Naima Wright LEATHER DRIER-DOCK GRADER [address] [facility], [address] [address] Referral ID Status Reason Start Date Expiration Date V isits Requested Visits Authorized [id number] Authorized 11/09/2023 11/08/2024 1 1 Chief Complaint [...] and content) DATE CREATED AUTHOR [facility]06[facility]20[facility] DATE CREATED AUTHOR AUTHOR'S ORGANIZ ATION 03/12/2021 [facility] DATE CREATED AUTHOR AUTHOR'S ORGANIZ ATION 02/16/2022 [facility] DATE CREATED AUTHOR AUTHOR'S ORGANIZ ATION 07/16/2022 [facility] DATE CREATED AUTHOR AUTHOR'S ORGANIZ ATION 07/16/2022 [facility] DATE CREATED AUTHOR AUTHOR'S ORGANIZ ATION 09/17/2022 [facility] DATE CREATED AUTHOR AUTHOR'S ORGANIZ ATION 04/03/2024 [facility] DATE CREATED AUTHOR AUTHOR'S ORGANIZ ATION 04/27/2024 [facility] EPIC DATE CREATED AUTHOR AUTHOR'S ORGANIZ ATION 04/30/2024 [facility] DATE CREATED AUTHOR AUTHOR'S ORGANIZ ATION 05/26/2024 [facility] DATE CREATED AUTHOR AUTHOR'S ORGANIZ ATION 05/26/2024 [facility] Reason for Visit (unrecogniz ed section and content) Reason Comments New Patient Visit Pt is here today as a new patient from Dr. Ty Specialty Diagnoses / Procedures Referred By Isela mckay Referred To Contact Cardiology Diagnoses Sinus bradycardia Valentino Ty MD [address] [facility] 2, [address] [place] [address] Amador Son MD 125 [facility], [facility] [address] [place] [address] Referral ID Status Reason Start Date Expiration Date Visits Requested Visits Authorized [id number] Authorized Specialty Services Required 07/15/2023 07/14/2024 1 1 Specialty Diagnoses / Procedures Referred By Isela mckay Referred To Contact Diagnoses Sinus bradycardia Chronotropic incompetence Sick sinus syndrome (CMS/HCC) Other fatigue Sinus bradycardia [R00.1] Chronotropic incompetence [I45.89] Sick sinus syndrome (CMS/HCC) [I49.5] Other fatigue [R53.83] Procedures IA INS NEW/RPLCMT PRM PM W/TRANSV ELTRD ATRIAL&VENT PPM IMPLANT DUAL Amador Son MD 254 [facility] [address] [place] [address] [facility] [address] [place] [address] Referral ID Status Reason Start Date Expiration Date Visits Re quested Visits Authorized [id number] 1 1 Reason Comments Wound Check Patient is having sw elling in his right hand Specialty Diagnoses / Procedures Referred By Contac t Referred To Contact Cardiology Diagnoses Localized swelling on left hand S/P placement of cardiac pacemaker Procedures Vascular US upper extremity venous duplex left Naima Wright LEATHER DRIER-DOCK GRADER [address] [address] Referral ID Status Reason Start Date Expiration Date Visits Requested Visits Authorized [id number] Authorized Perform Procedure 08/09/2023 08/08/2024 1 1 Specialty Diagnoses / Procedures Referred By Contac t Referred To Contact Cardiology Diagnoses Cardiac pacemaker in situ Sinoatrial node dysfunction (Multi) Procedures Cardiac Device Check - Remote Amador Son MD [address] [facility] [address] [place] [address] Referral ID Status Reason Start Date Expiration Date Visits Requested Visits Authorized [id number] Pending Review Perform Procedure 08/08/2023 08/07/2024 1 1 Reason Onset Date Comments Med Refill 03/01/2024 Reason Onset Date Comments Med Refill 03/30/2024 Reason Comments Follow-up Pt is here today fol lowing up with device check Specialty Diagnoses / Procedures Referred By Contac t Referred To Contact Diagnoses Sinus bradycardia Procedures ECG 12 lead (Clinic Performed) Naima Wright LEATHER DRIER-DOCK GRADER [address] [address] Referral ID Status Reason Start Date Expiration Date V isits Requested Visits Authorized [id number] Authorized 11/09/2023 11/08/2024 1 1 Specialty Diagnoses / Procedures Referred By Contac t Referred To Contact Cardiology Diagnoses Pacemaker Procedures Cardiac Device Check - In Clinic Ana M Kumari APRN-DOCK GRADER [address] [address] Referral ID Status Reason Start Date Expiration Date Visits Requested Visits Authorized [id number] Pending Review Perform Procedure 08/05/2023 08/04/2024 1 1 Specialty Diagnoses / Procedures Referred By Contac t Referred To Contact Radiology Diagnoses Pacemaker Procedures XR chest 2 views Ana M Kumari LEATHER DRIER-DOCK GRADER [address] [facility], [address] [place] [address] Referral ID Status Reason Start Date Expiration Date Visits Requested Visits Authorized [id number] Authorized Perform Procedure 08/05/2023 08/04/2024 1 1 Reason Comments Medicare Annual Wellness Visit Subsequen t Wellness Reason Onset Date Comments Med [...] Procedures Follow Up In Cardiology Naima Wright, LEATHER DRIER-DOCK GRADER Phone: tel: fax: Amador Son MD 917 [facility] [address] [place] [address] Phone: tel: fax: Referral ID Status Reason Start Date Expiration Date V isits Requested Visits Authorized [id number] Authorized 11/09/2023 11/08/2024 1 1 Reason Onset Date Comments Med Refill 05/28/2024 Care Teams (unrecognized sec tion and content) Shirring Machine Operator Relationship Specialty Start Date End Date Ishmael Simon MD [address] [place] [address] PCP - General Family Medicine 06/29/23 Shirring Machine Operator Relationship Specialty Start Date End Date Ishmael Simon MD [address] [place] [address] PCP - General Family Medicine 06/29/23 Shirring Machine Operator Relationship Specialty Start Date End Date Ishmael Simon MD [address] [place] [address] PCP - General Family Medicine 06/29/23 Shirring Machine Operator Relationship Specialty Start Date End Date Ishmael Simon MD [address] [place] [phone] PCP - General Family Medicine 06/29/23 Shirring Machine Operator Relationship Specialty Start Date End Date Ishmael Simon MD PCP - General Family Medicine 06/29/23 Shirring Machine Operator Relationship Specialty Start Date End Date Ishmael Simon MD [address] [place] [address] PCP - General Family Medicine 06/29/23 Naiam Wright, LEATHER DRIER-DOCK GRADER [address] [facility] Medical Office Bldg, [address] [place] [address] Nurse Practitioner Cardiology 11/07/23 Shirring Machine Operator Relationship Specialty Start Date End Date Ishmael Simon MD [address] [place] [phone] PCP - General Family Medicine 10/10/23 Team [...] March 27, 2024 End: March 27, 2024 Danielle Bergeron NP-C Attending Provider Active St art: March 27, 2024 End: March 27, 2024 Shirring Machine Operator Relationship Specialty Start Date End Date Ishmael Simon MD [address] [place] [address] PCP - General Family Medicine 06/29/23 Naima Wright, LEATHER DRIER-DOCK GRADER [address] [facility], [facility] [address] [place] [address] Nurse Practitioner Cardiology 11/07/23 Shirring Machine Operator Relationship Specialty Start Date End Date Ishmael Simon MD [address] [place] [address] PCP - General Family Medicine 06/29/23 Naima Wright, LEATHER DRIER-DOCK GRADER [address] [facility], [facility] [address] [place] [address] Nurse Practitioner Cardiology 11/07/23 Shirring Machine Operator Relationship Specialty Start Date End Date Ishmael Simon MD [address] [place] [phone] PCP - General Family Medicine 10/10/23 Shirring Machine Operator Relationship Specialty Start Date End Date Ishmael Simon MD [address] [place] [address] PCP - General Family Medicine 10/10/23 Shirring Machine Operator Relationship Specialty Start Date End Date Ishmael Simon MD [address] [place] [address] PCP - General Family Medicine 10/10/23 Shirring Machine Operator Relationship Specialty Start Date End Date Ishmael Simon MD [address] [place] [address] PCP - General Family Medicine 06/29/23 Naima Wright, LEATHER DRIER-DOCK GRADER [address] [facility] Medical Office Bldg, [place] [address] Nurse Practitioner Cardiology 11/07/23 Shirring Machine Operator Relationship Specialty Start Date End Date Ishmael Simon MD [address] [place] [phone] PCP - General Family Medicine 10/10/23 Shirring Machine Operator Relationship Specialty Start Date End Date Ishmael Simon MD [address] [place] [address] PCP - General Family Medicine 10/10/23 Shirring Machine Operator Relationship Specialty Start Date End Date Ishmael Simon MD [address] [place] [address] PCP - General Family Medicine 10/10/23 Shirring Machine Operator Relationship Specialty Start Date End Date Ishmael Simon MD [address] [place] [address] PCP - General Family Medicine 10/10/23 Shirring Machine Operator Relationship Specialty Start Date End Date Ishmael Simon MD [address] [place] [address] PCP - General Family Medicine 10/10/23 Shirring Machine Operator Relationship Specialty Start Date End Date Ishmael Simon MD [address] [place] [address] PCP - General Family Medicine 10/10/23 Shirring Machine Operator Relationship Specialty Start Date End Date Ishmael Simon MD [address] [place] [address] PCP - General Family Medicine 10/10/23 Shirring Machine Operator Relationship Specialty Start Date End Date Ishmael Simon MD [address] [place] [address] PCP - General Family Medicine 10/10/23 Shirring Machine Operator Relationship Specialty Start Date End Date Ishmael Simon MD [address] [place], [place] [phone] PCP - General Family Medicine 06/29/23 Amador Son MD [address] [facility], [facility] [address] [place] [address] Diesel Retrofit Designer Electrophysiology 05/17/24 Shirring Machine Operator Relationship Specialty Start Date End Date Ishmael Simon MD [address] [place] [address] PCP - General Family Medicine 06/29/23 Amador Son MD [address] [facility], [facility] [address] [place] [address] Diesel Retrofit Designer Electrophysiology 05/17/24 Shirring Machine Operator Relationship Specialty Start Date End Date Ishmael Simon MD [address] [place] [address] PCP - General Family Medicine 10/10/23 Scheduled Active and Recently Administ ered Medications [...] Continuous, Starting on Tue08/05/23 at 1230, Preprocedure, x ray equipment tester to EP lab 1221 (New Bag - [...] Intraprocedure 1555 (Given - Provid er: Lottie Ferreira, RN)1557 (Given - Provider: Lottie Ferreira, RN)1601 (Given - Provider: Lottie Ferreira RN) [...] BE BASED ON THE PRIMARY CLINICAL RECORDS. [employer] provides no warranty or guarantee of the accuracy or completeness of information in this document.
--- NOTE | 2024-05-29 15:16 | CM.DCFOLLOWU ---
Person spoke with: patient How are you feeling?well How is your pain?none Did you understand your discharge instructions?yes Do you have any questions about your discharge instructions?no Were you given any prescriptions at discharge?yes Were you able to get your prescriptions filled?yes Do you understand how to take your medications as ordered?yes Do you have any questions about your follow up appointment and do you plan to keep your follow up appointment? no questions, follow up reviewed Is there anything else that you would like to discuss?no Questions/Comments/Concerns/Other:N/A
== END 2024-05-28 12:01 | disposition home or self-care (01) ==
LOC: ER 15:58 → MS 20:59
PROVIDERS: Admitting Provider Family Medicine; Emergency Provider Emergency Medicine; PCP Family Medicine; Visit Provider Internal Medicine
DX: J44.1 Chronic obstructive pulmonary disease with (acute) exacerbation (principal); J96.21 Acute and chronic respiratory failure with hypoxia; M51.369 Other intervertebral disc degeneration, lumbar region without mention of lumbar back pain or lower extremity pain; I10 Essential (primary) hypertension; F17.210 Nicotine dependence, cigarettes, uncomplicated; Z95.0 Presence of cardiac pacemaker; R60.9 Edema, unspecified; E87.1 Hypo-osmolality and hyponatremia; E66.9 Obesity, unspecified; Z68.37 Body mass index [BMI] 37.0-37.9, adult; R06.02 Shortness of breath
CPT/HCPCS: 36415; 71046; 80048; 80053; 83880; 84484; 85025; 87070; 87205; 87804; 87811; 87880; 93005; 94640; 94667; 94668; 94761; 96365; 96366; 96375; 96376; 99285; 99406; G0378; J2919; J7512

== ENCOUNTER 2024-06-14 11:23 | Outpatient (OUT) | payer MEDICARE, SELFPAY ==
--- OUTSIDE RECORDS SUMMARY | 2024-06-14 11:29 | XMS_ITS | CCD ---
Author Organization [facility] Care Team Providers Care Civil Drafting Technician Name Role Phone SIMONE RUIZ Admitting Unavailable SIMONE RUIZ Attending Unavailable ISHMAEL SIMON Referring Unavailable ISHMAEL SIMON Primary Care Unavailable JEY ELISE R Attending Unavailable JEY ELISE R Surgeon Unavailable MT Procedure Practitioner Unavailab ISHMAEL Campoverde Primary Care [...] ., DR RICKY Bateman Attending Unavailable COLMENARES .YOLA Consulting Unavailable NADERER, DR ISHMAEL Rea Primary Care Unavailable NADERER, DR ISHMAEL Rae [...] Unavailable NASRA, HOANG Consulting Unavailable COLMENARES ., YOLA Consulting Unavailable IBARRA ., DR RICKY Bateman [...] ISHMAEL Rae Primary Care Unavailable COLMENARES ., YOLA Consulting Unavailable IBARRA ., DR RICKY Bateman [...] ISHMAEL Rae Primary Care Unavailable COLMENARES ., YOLA Consulting Unavailable IBARRA ., DR RICKY Bateman Attending Unavailable IBARRA ., DR RICKY Bateman Admitting Unavailable SAMSA ., AMINA Attending Unavailable WEST, DR BATSHEVA Huertas Consulting Unavailable NADERER, DR ISHMAEL Rae Primary Care Unavailable SAMSA ., AMINA Admitting Unavailable SAMSA ., AMINA Consulting Unavailable COLMENARES ., YOLA Admitting Unavailable COLMENARES ., YOLA Attending Unavailable ZIEBER, DR FLEX Hunt Consulting Unavailable NADERER, DR ISHMAEL Rae Primary Care Unavailable COLMENARES ., YOLA Consulting Unavailable IBARRA ., DR RICKY Bateman [...] DR ISHMAEL Rae Consulting Unavailable COLMENARES ., YOLA Consulting Unavailable IBARRA ., DR RICKY Bateman Admitting Unavailable IBARRA ., DR RICKY Bateman Attending Unavailable NADEREMarilee, DR ISHMAEL Rae Primary Care Unavailable Alfred LANE, Ishmael Vallejo Primary Care Provider Alfred LANE, Ishmael Vallejo Primary Care Provider Alfred LANE, Ishmael Vallejo Primary Care Provider Adriana BAILEY-ATTENDANT HONOR BAR, Naima E Unavailable Ishmael Simon MD Primary Care Provider Ishmael Simon MD Primary Care Provider Rubio CORONADO-CDanielle Attending Provider Danielle Bergeron Attending Unavailable Ishmael Simon Primary Care Unavailable Danielle Bergeron Admitting Unavailable Danielle Bergeron Attending Unavailable ChloeereIshmael hunt Primary Care Unavailable Danielle Bergeron Admitting Unavailable Amy LANE, Jong Villalobos Attending Unavailable Amador Son MD Unavailable TRABBETHANY MARINELLIF Attending Unavailable [facility] Hunt [facility] Care Unavailabl e TITOOULNIC, MOURHAF Referring Unavailable [facility] Care Unavailabl e HUY, AMADOR N Attending Unavailable ISHMAEL SIMON SY Primary Care Unavailabl e TRABOULNIC, MOURHAF Referring Unavailable HUY AMADOR N Attending Unavailable [facility] Care Unavailabl e [facility] Care Unavailabl e ADRIANA, NAIMA E Attending Unavaila ble [facility] Primary Care Unavailabl e MARISOLI, MOURHAF Attending Unavailable KARSON, MOURHAF Referring Unavailable [facility] Care Unavailabl e SON, AMADOR N Attending Unavailable ADRIANA, NAIMA E Referring Unavaila ble NADERERISHMAEL [place] Primary Care Unavailabl e ADRIANA, NAIMA E Referring Unavaila ble [facility] Primary Care Unavailabl e SON, AMADOR N Referring Unavailable [facility] Primary Care Unavailabl e ANA M KUMARI Referring Unavailable NADERER, ISHMAEL [place] Primary Care Unavailabl ANA M Cho Referring Unavailable NADEREISHMAEL Hunt [place] Primary Care Unavailabl e SON, AMADOR N Referring Unavailable NADEREISHMAEL Hunt [place] Primary Care Unavailabl e SON, AMADOR N Referring Unavailable [facility]ilee, ISHMAEL [place] Primary Care Unavailabl e ADRIANA, NAIMA E Referring Unavaila ble NADEREISHMAEL Hunt [place] Primary Care Unavailabl e ALFRED, ISHMAEL Attending Unavailable ISHMAEL SIMON Attending Unavailable ISHMAEL SIMON Attending Unavailable ISHMAEL SIMON Attending Unavailable ISHMAEL SIMON Attending Unavailable Medications Current Medications Medication Drug [...] 19, 2018 12:00am June 22, 2018 9:37am [id number] 200 actuat albuterol 0.09 mg/actuat metered dose inhaler (20 sources) beta2-Adrenergic Agonist Start: 06-06-2024 take 2 puff(s) by inhalation every four hours for wheezing albuterol HFA 90 mcg/act inhaler Indications: Chronic obstructive pulmonary disease with acute exacerbation (CMS/HCC) Inhale 2 puffs every 4 (four) hours if needed for wheezing 18 g 3 06/06/2024 Active Start: 06-06-2024 take 2 puff(s) by in halation every four hours for wheezing albuterol HFA 90 mcg/act inhaler Indications: Chronic obstructive pulmonary disease with acute exacerbation (CMS/HCC) Inhale 2 puffs every 4 (four) hours if needed for wheezing 18 g 3 06/06/2024 Active Start: 06-23-2018 End: 10-21-2018 Albuterol Sulfate 90 mcg/act uation aerosol powdr breath activated Discontinued 2 INH INHALATION Four times daily 06 07June 23, 2018 12:00am October 19, 2018 11:00pm October 20, 2018 11:02pm take 2 puff(s) by in halation every four hours albuterol (Ventolin HFA) 90 mcg/actuation inhaler Inhale 2 puffs every 4 hours if needed. Active End: 06-06-2024 take 2 puff(s) by inhalation every four hours for wheezing albuterol HFA 90 mcg/act inhaler Inhale 2 puffs every 4 (four) hours if needed for wheezing 06/06/2024 Discontinued (Reorder) aspirin 81 mg delayed release oral tablet [...] once piero ly Vitamin D 50 MCG (1999) Oral Capsule [...] Active 0.5 ml dulaglutide 1.5 mg/ml auto-injector (7 sources) GLP-1 Receptor Agonist Start: 04-24-2024 End: 06-06-2024 inject 0.75 mg by subcutaneous injection every week Dulaglutide (Trulicity) 0.75 MG/0.5ML solution auto-injector Indications: Type 2 diabetes mellitus with hyperglycemia, without long-term current use of insulin ([facility]) Inject 0.75 mg under the skin 1 (one) time per week 2 mL 5 04/24/2024 06/06/2024 Discontinued Fluticasone-Umecli din-Vilanter (20 sources) Anticholinergic, Corticosteroid, beta2-Adrenergic Agonist Start: 07-06-2019 Fluticasone-Umecl idin-Vilanter (Trelegy Ellipta) 100-62.5-25 mcg blister with device Active 1 MCG INHALATION As Directed July 06, 2019 12:00am fluticasone-umec lidin-vilanter (TRELEGY-ELLIPTA) 100-62.5-25 mcg blister with device Inhale 1 puff. 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 , Alcoholic gastritis TAKE 1 CAPSULE BY MOUTH EVERY DAY 90 capsule 1 06/04/2024 Active Start: 12-13-2023 take 1 capsule by mo [facility] once daily omeprazole (PriLOSEC) [address] [...] injection 4 mg oxygen (O2) gas therapy (14 sources) oxygen (O2) gas therapy 2l at [...] 2019 12:00am administer with food or milk rosuvastatin calcium 10 mg oral tablet (1 source) HMG-CoA Reductase Inhibitor Start: 06-13-2024 End: 06-13-2025 take 1 tablet by mouth once daily rosuvastatin (Crestor) 10 mg tablet Indications: Peripheral vascular disease, unspecified (CMS-HCC) , Hyperlipidemia, unspecified hyperlipidemia type Take 1 tablet (10 mg) by mouth once daily. 90 tablet 3 06/13/2024 06/13/2025 Active 0.25 mg, 0.5 mg dose 1.5 ml semaglutide 1.34 mg/ml pen injector (3 sources) Start: 04-24-2024 semaglutide (O zempic, 0.25 or 0.5 MG/DOSE,) 2 MG/1.5ML solution pen-injector Indications: Type 2 diabetes mellitus with hyperglycemia, without long-term current use of insulin ([facility]) 0.25 mg SC weekly x 4 weeks, [...] mg inhalation powder (2 sources) Anticholinergic Start: 019 End: 020 take 1 capsule by inhalation once daily Tiotropium [place] (Spiriva With Handihaler) 18 mcg capsule, w/inhalation [...] failure] Onset: 04-13-2023 Resolved: 12-01-2023 07-22-2023 Chronic Coronary atherosclerosis and other heart disease (2 sources) Coronary arteriosclerosis; Translations: [Atherosclerotic heart disease of [place] coronary artery without angina pectoris] Onset: 06-13-2024 06-13-2024 Chronic Diabetes mellitus with complications (20 sources) Type 2 diabetes mellitus with hyperglycemia; Translations: [Type 2 diabetes mellitus] Onset: 05-13-2022 07-22-2023 Chronic Disorders of lipid metabolism (20 sources) Hyperlipidemia, unspecified; Translations: [Dyslipidemia] Onset: 05-13-2022 [...] of Phys. EHR Cmte Hyperplasia of prostate (20 sources) Benign prostatic hypertrophy with outflow obstruction; [...] 07-30-2022 Chronic Other inflammatory condition of skin (20 sources) Plaque psoriasis; Translations: [Psoriasis vulgaris] Onset: 04-13-2023 04-13-2023 Chronic Other lower respiratory disease (1 source) Dyspnea, unspecified; Translations: [Dyspnea, unspecified] Onset: 02-15-2022 Episodic Other lower respiratory disease (2 sources) Rib pain; Translations: [Pleurodynia] 04-20-2023 Episodic Comment on above: Problem List clean-u p per request of Phys. EHR Cmte Other lower respiratory disease (2 sources) Dyspnea on exertion; Translations: [Other forms of dyspnea] 11-09-2023 Episodic Other male genital disorders (20 sources) Secondary erectile dysfunction; Translations: [Male erectile dysfunction, unspecified] Onset: 04-13-2023 04-13-2023 Chronic Other nervous system disorders (4 sources) Other specified mononeuropathies; Translations: [OTHER SPECIFIED MONONEUROPATHIES] Onset: 07-20-2022 Chronic Other nervous system disorders (1 source) Other chronic pain; Translations: [OTHER CHRONIC PAIN] Onset: 01-22-2022 Chronic Other nervous system disorders (20 sources) Ulnar neuropathy of left arm; Translations: [Lesion of ulnar nerve, left upper limb] Onset: 04-13-2023 04-13-2023 Chronic Other nervous system disorders (20 sources) Carpal tunnel syndrome of left wrist; [...] nutritional; endocrine; and metabolic disorders (14 sources) Severe obesity; Translations: [Class 2 severe obesity due to excess calories with serious comorbidity and body mass index (BMI) of 37.0 to 37.9 in adult (CMS/[facility])] Onset: 04-13-2023 04-24-2024 Chronic Other [...] 07-22-2023 Chronic Respiratory failure; insufficiency; arrest (adult) (20 sources) Chronic hypoxemic respiratory failure; Translations: [Chronic respiratory failure with hypoxia] Onset: 04-13-2023 Resolved: 04-13-2023 04-13-2023 Chronic Respiratory failure; insufficiency; arrest (adult) (2 sources) Respiratory failure; Translations: [Respiratory failure, unspecified, unspecified whether with hypoxia or hypercapnia] 04-20-2023 Episodic Comment on above: Problem List clean-u p per request of Phys. EHR Cmte Screening and history of mental health and substance abuse codes (2 sources) Ex-smoker; Translations: [Personal history of nicotine dependence] Onset: 06-13-2024 06-13-2024 Episodic Spondylosis; intervertebral disc disorders; other back [...] other specified circumstances] Onset: 04-13-2023 07-22-2023 Episodic Genitourinary symptoms and ill-defined conditions (20 sources) Dysuria; Translations: [Dysuria] Onset: 02-06-2024 02-06-2024 Episodic Comment on above: Problem List clean-u p per request of Phys. EHR Cmte Inflammatory conditions of male genital organs (18 sources) Prostatitis; Translations: [Inflammatory disease of prostate, unspecified] Onset: 02-06-2024 02-06-2024 Episodic Malaise and fatigue (18 sources) Fatigue; Translations: [Other fatigue] Onset: 07-22-2023 07-22-2023 Episodic Mood disorders (10 sources) Mood disorders Onset: 04-24-2024 04-24-2024 Other aftercare (1 source) Other alf (current) drug therapy; Translations: [OTH HALF-WAY CURRENT DRUG THERAPY] Onset: 05-13-2022 Episodic Other aftercare (19 sources) Long-term current use of drug therapy; Translations: [Other alf (current) drug therapy] Onset: 04-13-2023 04-13-2023 Episodic Other connective tissue disease (1 source) Other muscle spasm; Translations: [OTHER MUSCLE SPASM] Onset: 05-13-2022 Episodic Other lower respiratory disease (20 sources) Dyspnea; Translations: [Other respiratory abnormalities] Onset: 05-23-2023 05-23-2023 Episodic Other lower respiratory disease (4 sources) Pleurodynia; Translations: [PLEURODYNIA] Onset: 10-01-2021 Episodic Other lower respiratory disease (2 sources) Other forms of dyspnea; Translations: [Other forms of dyspnea] Onset: 05-23-2023 Episodic Other non-traumatic joint disorders (20 sources) Bilateral chronic pain of upper limbs; [...] Onset: 08-10-2023 Episodic Other upper respiratory disease (20 sources) Polyp of nasal cavity and/or nasal sinus; Translations: [Nasal polyp, unspecified] Onset: 04-13-2023 04-13-2023 Episodic Unclassified (1 source) CONTACT W/AND (SUSP) EXPOS COVID-19; Translations: [CONTACT W/AND (SUSP) EXPOS COVID-19] Onset: 04-12-2022 Unclassified (14 sources) Onset: 07-13-2023 Resolved: 06-13-2024 07-13-2023 Results Test Name Value Interpretation Reference Range Facility EPITHELIAL CELLSon 5 Epithelial cells LM Ql (Urine sed) Epithelial Cells Few [facility] No Panel Informationon 05-29 [facility] RESULT 1on 05-29-2024 RESULT 1 Result 1 Moderate number of gram positive cocci. [facility] RESULT 2on 05-29-2024 RESULT 2 Result 2 Few gram negative rods. [facility] RESULT 3on 05-29-2024 RESULT 3 Result 3 PRODUCT/DEVICE TECHNOLOGIST [facility] RESULT 4on 05-29-2024 RESULT 4 Result 4 PRODUCT/DEVICE TECHNOLOGIST [facility] WHITE BLOOD CELLSon 05-29-19 25 WHITE BLOOD CELLS White Blood Cells [facility] WHITE BLOOD CELLS Few [facility] Cardiac Device Check - In Cl inicon 05-23-2024 [facility] Work Phone: Radiology Study observation (narrative) [facility] Work Phone: ECG 12 lead (Clinic Performe d)on 05-23-2024 EKG performed today shows atrial paced rhythm at rate of 74 bpm QRS ration 100 ms QT corrected 448 ms. Rhythm strip shows the same pattern. [facility] Work Phone: [facility] Work Phone: MLR HEMOGLOBIN A1Con 024 Glucose [Mass/Vol] 131 mg/dL [facility] HbA1c (Bld) [Mass fraction] 6.2 % 4.5 - 6.2 % [facility] Comment on above: ADA RECOMMENDED LIMI T 4.0 - 6.0 ADA THERAPEUTIC TARGET < 7.0 ACTION SUGGESTED > 7.0 [facility] Magnetic resonance imaging r eportOrdered By: Germán Murphy on 03-27-2024 Study report [facility] [place] [address] MRI Report Signed Patient: Liliana Michaels JR MR#: [id number] : 1965 Acct:[id number] Age/Sex: 59 / M ADM Date: 4 Loc: Room: Type: [facility] Attending Dr: Danielle GAYTAN Copies to: LUKAS Burns~ Ordering Provider: LUKAS Burns Date of Service: 03/27/24 MR/MR lumbar spine wo con: LUMBAR DDD ([id number]) XR/XR pre/post mri xray: LUMBAR DDD MRI [...] D.O.03/27/2024 11:57 AM Dictation Location: [place] [address] Transcribed By: [facility] 03/27/24 1157 Dictated By: Germán Murphy Jr, DO 03/27/24 1148 Signed By: 03/27/24 1157 [facility] XR pre/post mri xrayon 03-27 XR pre/post mri xray [facility] [place] [address] [place] [address] MRI Report Signed Patient: Liliana Michaels JR MR#: [id number] : 1965 Acct:[id number] Age/Sex: 59 / M ADM Date: 03/27/24 Loc: MR Room: Type: REG CLI Attending Dr: Danielle GAYTAN Copies to: LUKAS Burns Ordering Provider: LUKAS Burns Date of Service: 03/27/24 MR/MR lumbar spine wo con: LUMBAR DDD ([id number]) XR/XR pre/post mri xray: LUMBAR DDD MRI [...] Murphy Jr., D.O.03/27/2024 11:57 AM Dictation Location: RADIO--22 Transcribed By: MIGUEL 03/27/24 1157 Dictated By: Germán Murphy Jr, DO 03/27/24 1148 Signed By: 03/27/24 1157 Normal [facility] XR chest 2V*on 03-16-2024 XR chest 2V* [facility] [place] [address] [place] [address] XRay Report Signed Patient: Liliana Michaels JR MR#: [id number] : 1965 Acct:[id number] Age/Sex: 59 / M ADM Date: 03/16/24 Loc: [facility] Room: Type: [facility] Attending Dr: Danielle GAYTAN Copies to: LUKAS [...] Elia Rodrigez M.D.03/16/2024 8:54 AM Dictation Location: [facility] Transcribed By: MIGUEL 03/16/24 0854 Dictated By: Elia Rodrigez DO 03/16/24 0849 Signed By: 03/16/24 0854 Normal [facility] Cardiac Device Check - Remot neeta 02-14-2024 [facility] Work Phone: Radiology Study observation (narrative) [facility] Work Phone: TBH UA (CLEAN/CATCH) MICROSC OPIC IF INDICATEon 02-06-2024 BILIRUBIN URINE Negative NEGATIVE [facility] BLOOD URINE TRACE-I NEGATIVE [facility] Clarity (U) SL [facility]OU[facility]AR [facility] Color (U) LT. YELLOW YELLOW [facility] GLUCOSE URINE UA Negative NEGATIVE mg/dL [facility] Interpretation and review of laboratory results Abnormal [facility] Ketones Ql (U) Negative NEGATIVE mg/dL [facility] Leukocyte esterase Test strip Ql (U) LARGE Abnormal NEGATIVE [facility] NITRITE URINE Negative NEGATIVE [facility] pH (U) 6.0 [pH] 5.0 - 9.0 [facility] PROTEIN URINE Negative NEG/TRACE mg/dL [facility] SPECIFIC GRAVITY URINE 1.015 1.005 - 1.025 [facility] URINE MICROSCOPIC INDICATED YES [facility] UROBILINOGEN URINE 0.2 EU/dL 0.2 - 1.0 EU/dL [facility] XR CHEST 2 VIEWSon XR CHEST 2 VIEWS Interpreted By: Sancho Gross, STUDY: XR CHEST 2 VIEWS; 11/09/2023 9:46 am INDICATION: Signs/Symptoms:Pacem marilyn. COMPARISON: 08/05/2023 ACCESSION NUMBER(S): [id number] ORDERING CLINICIAN: ANA M KUMARI FINDINGS: Left-sided pacemaker in place. CARDIOMEDIASTINAL SILHOUETTE: Cardiomediastinal silhouette is normal in size and configuration. LUNGS: Lungs are clear. ABDOMEN: No remarkable upper abdominal findings. BONES: No acute osseous changes. IMPRESSION: 1. No evidence of acute cardiopulmonary process. MACRO: None Signed by: Sancho Gross 11/10/2023 8:35 AM Dictation workstation: [id number] [facility] Comment on above: Order Comment: Repor t to [facility] registration on 11/09/2023 at 8:30 AM for chest x-ray and device check prior to appointment with Dr. Son at 10 AM Cardiac Device Check - Remot neeta 09-26-2023 [facility] Work Phone: Radiology Study observation (narrative) [facility] Work Phone: US.doppler Upper extremity v ein - lefton 08-10-2023 Exam negative for acute deep venous thrombosis in the left upper extremity MACRO: None Signed by: Simnoe Ramos 08/10/2023 3:07 PM Dictation workstation: [id number] MMODAL Interpreted By: Simone Ramos, STUDY: [facility] US UPPER EXTREMITY VENOUS DUPLEX LEFT; 08/10/2023 2:47 pm INDICATION: Signs/Symptoms: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 COMPARISON: Portable chest 05 August 2023 ACCESSION NUMBER(S): [id number] ORDERING CLINICIAN: NAIMA WRIGHT TECHNIQUE: Vascular ultrasound [...] 08/10/2023 Interpreted By: Simone Ramos, STUDY: [facility] US UPPER EXTREMITY VENOUS DUPLEX LEFT; 08/10/2023 2:47 pm INDICATION: Signs/Symptoms: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 COMPARISON: Portable chest 05 August 2023 ACCESSION NUMBER(S): [id number] ORDERING CLINICIAN: NAIMA WRIGHT TECHNIQUE: Vascular ultrasound [...] Simone Ramos 08/10/2023 3:07 PM Dictation workstation: [id number] [facility] Work Phone: Radiology Study observation (narrative) [facility] Work Phone: US.doppler Upper extremity v ein - leftOrdered By: Simone Ramos on 08-10-2023 [facility] Work Phone: [facility] US UPPER EXTREMITY VENO US DUPLEX LEFTon 08-10-2023 [facility] US UPPER EXTREMITY VENOUS DUPLEX LEFT Interpreted By: Simone Ramos, STUDY: [facility] US UPPER EXTREMITY VENOUS DUPLEX LEFT; 08/10/2023 2:47 pm INDICATION: Signs/Symptoms: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 COMPARISON: Portable chest 05 August 2023 ACCESSION NUMBER(S): [id number] ORDERING CLINICIAN: NAIMA WRIGHT TECHNIQUE: Vascular ultrasound [...] Simone Ramos 08/10/2023 3:07 PM Dictation workstation: [id number] [facility] Basic metabolic 2000 panelon 08-05-2023 Anion gap [Moles/Vol] 12 mmol/L 10 - 2 0 mmol/L [facility] Calcium [Mass/Vol] 9.6 mg/dL 8.6 - 10. 3 mg/dL [facility] Chloride [Moles/Vol] 102 mmol/L 98 - 10 7 mmol/L [facility] CO2 [Moles/Vol] 29 mmol/L 21 - 32 mmol/L [facility] Creatinine [Mass/Vol] 1.12 mg/dL 0.50 - 1.30 mg/dL [facility] GFR/1.73 sq M.predicted among non-blacks MDRD (S/P/Bld) [Vol rate/Area] 76 mL/min/{1.73_m2} - PINF [facility] Comment on above: Calculations of yang mated GFR are performed using the 2020 CKD-EPI Study Refit equation without the race variable for the IDMS-Traceable creatinine methods. https://jasn.asnjournals.org/content/early//ASN 459797 Glucose [Mass/Vol] 95 mg/dL 74 - 99 mg/dL [facility] Interpretation and review of laboratory results Normal [facility] Potassium [Moles/Vol] 4.0 mmol/L 3.5 - 5.3 mmol/L [facility] Sodium [Moles/Vol] 139 mmol/L 136 - 145 mmol/L [facility] Urea nitrogen [Mass/Vol] 17 mg/dL 6 - 23 mg/dL [facility] Anion gap [Moles/Vol] 12 mmol/L Normal 10-20 [facility] Comment on above: Performed By: #### 2 4321-2 #### JAIMEE QURESHI ([id number]) [facility] ([facility]) [address] [place] [address] Calcium [Mass/Vol] 9.6 mg/dL Normal 8.6-10.3 [facility] Comment on above: Performed By: #### 2 4321-2 #### JAIMEE QURESHI ([id number]) [facility] ([facility]) [address] [place] [address]344 Chloride [Moles/Vol] 102 mmol/L Normal 98-107 [facility] Comment on above: Performed By: #### 2 4321-2 #### JAIMEE QURESHI ([id number]) [facility] ([facility]) [address] [place] [id number] CO2 [Moles/Vol] 29 mmol/L Normal 21-32 [facility] Comment on above: Performed By: #### 2 4321-2 #### JAIMEE QURESHI ([id number]) [facility] ([facility]) [address] [place] [address] 16168 Creatinine [Mass/Vol] 1.12 mg/dL Normal 0.50-1.30 [facility] Comment on above: Performed By: #### 2 4321-2 #### GRISELDAIBDEION QURESHI ([id number]) [facility] ([facility]) [address] [place] [address] [phone] Glomerular filtration rate/1.73 sq M.predicted 76 mL/min/1.73m*2 Normal >60 [facility] Comment on above: Result Comment: Calc ulations of estimated GFR are performed using the 2020 CKD-EPI Study Refit equation without the race variable for the IDMS-Traceable creatinine methods. https://jasn.asnjournals.org/content/early/ASN.2020 809505 Performed By: #### 2 4321-2 #### JAIMEE QURESHI ([id number]) [facility] ([facility]) [address] [place] [id number] Glucose [Mass/Vol] 95 mg/dL Normal 74-99 [facility] Comment on above: Performed By: #### 2 4321-2 #### JAIMEE QURESHI ([id number]) [facility] ([facility]) [address] [place] [address] 48511 Potassium [Moles/Vol] 4.0 mmol/L Normal 3.5-5.3 [facility] Comment on above: Performed By: #### 2 4321-2 #### JAIMEE QURESHI ([id number]) [facility] ([facility]) [address] [place] [address] 05880 Sodium [Moles/Vol] 139 mmol/L Normal 136-145 [facility] Comment on above: Performed By: #### 2 4321-2 #### JAIMEE QURESHI ([id number]) [facility] ([facility]) [address] [place] [address] 16473 Urea nitrogen [Mass/Vol] 17 mg/dL Normal 6-23 [facility] Comment on above: Performed By: #### 2 4321-2 #### JAIMEE QURESHI ([id number]) [facility] ([facility]) [address] [place] [address] 86391 CBC panel Auto (Bld)on 08-04 Erythrocyte distribution width (RBC) [Ratio] 13.0 % 11.5 - 14.5 % [facility] Hematocrit (Bld) [Volume fraction] 46.9 % 41.0 - 52.0 % [facility] Hemoglobin (Bld) [Mass/Vol] 16.1 g/dL 13.5 - 17.5 g/dL [facility] Interpretation and review of laboratory results Normal [facility] MCH (RBC) [Entitic mass] 31.5 pg 26.0 - 34.0 pg [facility] MCHC (RBC) [Mass/Vol] 34.3 g/dL 32.0 - 36.0 g/dL [facility] MCV (RBC) [Entitic vol] 92 fL 80 - 100 fL [facility] Nucleated RBC/100 WBC (Bld) [Ratio] 0.0 % [facility] Platelets (Bld) [#/Vol] 279 10*3/uL [facility] RBC (Bld) [#/Vol] 5.11 10*6/uL [facility] WBC (Bld) [#/Vol] 8.9 10*3/uL [facility] Erythrocyte distribution width (RBC) [Ratio] 13.0 % Normal 11.5-14.5 [facility] Comment on above: Performed By: #### 5 8410-2 #### JAIMEE QURESHI ([id number]) [facility] ([facility]) [address] [place] [address] 71245 Hematocrit (Bld) [Volume fraction] 46.9 % Normal 41.0-52.0 [facility] Comment on above: Performed By: #### 5 8410-2 #### JAIMEE QURESHI ([id number]) [facility] ([facility]) [address] [place] [address] 66445 Hemoglobin (Bld) [Mass/Vol] 16.1 g/dL Normal 13.5-17.5 [facility] Comment on above: Performed By: #### 5 8410-2 #### JAIMEE QURESHI ([id number]) [facility] ([facility]) [address] [place] [address] 03619 MCH (RBC) [Entitic mass] 31.5 pg Normal 26.0-34.0 [facility] Comment on above: Performed By: #### 5 8410-2 #### JAIMEE QURESHI ([id number]) [facility] ([facility]) [address] [place] [address] 74546 MCHC (RBC) [Mass/Vol] 34.3 g/dL Normal 32.0-36.0 [facility] Comment on above: Performed By: #### 5 8410-2 #### JAIMEE QURESHI ([id number]) [facility] ([facility]) [address] [place] [address] MCV (RBC) [Entitic vol] 92 fL Normal 80-100 U [facility] Comment on above: Performed By: #### 5 8410-2 #### JAIMEE QURESHI ([id number]) [facility] ([facility]) [address] [place] [address] 90958 Nucleated RBC/100 WBC (Bld) [Ratio] 0.0 /100 WBCs Normal 0.0-0.0 [facility] Comment on above: Performed By: #### 5 8410-2 #### JAIMEE QURESHI ([id number]) [facility] ([facility]) [address] [place] [address] 27501 Platelets (Bld) [#/Vol] 279 x10*3/uL Normal 150-450 [facility] Comment on above: Performed By: #### 5 8410-2 #### JAIMEE QURESHI ([id number]) [facility] ([facility]) [address] [place] [address] 21489 RBC (Bld) [#/Vol] 5.11 x10*6/uL Normal 4.50-5.90 [facility] Comment on above: Performed By: #### 5 8410-2 #### JAIMEE QURESHI ([id number]) [facility] ([facility]) [address] [place] [address] 40894 WBC (Bld) [#/Vol] 8.9 x10*3/uL Normal 4.4-11.3 [facility] Comment on above: Performed By: #### 5 8410-2 #### JAIMEE QURESHI ([id number]) [facility] ([facility]) [address] [place] [address] 43554 Electrophysiology studyon [facility] Work Phone: PT and aPTT panel Coag (PPP) on 08-05-2023 aPTT Coag (PPP) [Time] 34 s [facility] INR Coag (PPP) [Relative time] 1.0 {INR} 0.9 - 1.1 [facility] Interpretation and review of laboratory results Normal [facility] PT Coag (PPP) [Time] 11.0 s [facility] The APTT is no longer used for monitoring Unfractionated Heparin Therapy. For monitoring Heparin Therapy, use the Heparin Assay. [facility] aPTT Coag (PPP) [Time] 34 s Normal 27-38 [facility] Comment on above: Order Comment: The A PTT is no longer used for monitoring Unfractionated Heparin Therapy. For monitoring Heparin Therapy, use the Heparin Assay. Performed By: #### 3 4529-8 #### JAIMEE QURESHI ([id number]) [facility] ([facility]) [address] [place] [address] 37974 INR Coag (PPP) [Relative time] 1.0 Normal 0.9-1.1 [facility] Comment on above: Order Comment: The A PTT is no longer used for monitoring Unfractionated Heparin Therapy. For monitoring Heparin Therapy, use the Heparin Assay. Performed By: #### 3 4529-8 #### JAIMEE QURESHI ([id number]) [facility] ([facility]) [address] [place] [address] 53505 PT Coag (PPP) [Time] 11.0 s Normal 9.8-12.8 [facility] Comment on above: Order Comment: The A PTT is no longer used for monitoring Unfractionated Heparin Therapy. For monitoring Heparin Therapy, use the Heparin Assay. Performed By: #### 3 4529-8 #### JAIMEE QURESHI ([id number]) [facility] ([facility]) [address] [place] [address] 04136 TRANSTHORACIC ECHO (TTE) COM Amarilis 08-05-2023 TRANSTHORACIC ECHO (TTE) COMPLETE [address] [address] TRANSTHORACIC ECHOCARDIOGRAM REPORT Patient Name: LILIANA MICHAELS Reading Physician: [id number] Batsheva Morris MD, [facility] Study Date: 08/05/2023 Ordering Provider: [id number] ANA M ANGEL MRN/PID: [id number] Fellow: Nurse: Date of /Age: 10 1965 / 58 Oil Developer: Eli Pisano RDCS Gender: M Additional Staff: Height: 162.56 cm Admit Date: Weight: 90.72 kg Admission Status: Outpatient BSA / BMI: 1.96 m2 / 34.33 Department Location: [place] [address] Echo Lab Blood Pressure: 128 /73 mmHg Study Type: TRANSTHORACIC ECHO (TTE) COMPLETE Diagnosis/ICD: Bradycardia, unspecified-R00.1 Indication: Abnormal EKG, Pre-EP CPT Codes: Echo Complete w Full Doppler-18415 Study Detail: The following Echo studies were [...] LA Area A2C: 18.9 cm2 LA [place] A4C: 5.8 cm LA [place] A2C: 5.5 cm LA Volume Index: 27.0 [...] 1.3 m/s (0.6-0.9m/s) PV Max P.6 mmHg [id number] Batsheva Morris MD, FACC Electronically signed on 08/05/2023 at 2:30:14 PM Final Normal [facility] US Heart TransthoracicOrdere d By: Batsheva Morris on 08-05-2023 Aortic Valve Area by Continuity of Peak Velocity 2.42 cm2 [facility] Work Phone: Aortic Valve Area by Continuity of VTI 2.62 cm2 [facility] Work Phone: AV mn grad 4.0 mmHg [facility] Work Phone: AV pk grad 8.2 mmHg [facility] Work Phone: AV pk abiodun 1.43 m/s [facility] Work Phone: LA vol index A/L 29.3 ml/m2 [facility] Work Phone: LV A4C EF 62.4 [facility] Work Phone: LV biplane EF 60 % [facility] Work Phone: LVIDd 5.28 cm [facility] Work Phone: LVOT diam 2.00 cm [facility] Work Phone: MV avg E/e' ratio 7.78 [facility] Work Phone: MV E/A ratio 0.88 [facility] Work Phone: RV free wall pk S' 15.40 cm/s [facility] Work Phone: RVSP 23.4 mmHg [facility] Work Phone: Tricuspid annular plane systolic excursion 3.6 cm [facility] Work Phone: [facility] Work Phone: US Heart Transthoracicon [place] [id number] TRANSTHORACIC ECHOCARDIOGRAM REPORT Patient Name: LILIANA Quiñones Physician: [id number] Batsheva Morris MD, [facility] Study Date: 08/05/2023 Ordering Provider: [id number] ANA M ANGEL MRN/PID: [id number] Fellow: Nurse: Date of /Age: 10 1965 Oil Developer: Eli Pisano CS Gender: M Additional Staff: Height: 162.56 cm Admit Date: Weight: 90.72 kg Admission Status: Outpatient BSA / BMI: 1.96 m2 / 34.33 Department Location: [facility]/m2 Echo Lab Blood Pressure: 128 /73 mmHg Study Type: TRANSTHORACIC ECHO (TTE) COMPLETE Diagnosis/ICD: Bradycardia, unspecified-R00.1 Indication: Abnormal EKG, Pre-EP CPT Codes: Echo Complete w Full Doppler-05396 Study Detail: The following Echo studies were [...] LA Area A2C: 18.9 cm2 LA [place] A4C: 5.8 cm LA [place] A2C: 5.5 cm LA Volume Index: 27.0 [...] not included)... Batsheva Alexander MD - 08/05/2023 [place] [id number] TRANSTHORACIC ECHOCARDIOGRAM REPORT Patient Name: LILIANA MICHAELS Reading Physician: [id number] Batsheva Morris MD, [facility] Study Date: 08/05/2023 Ordering Provider: [id number] ANA M ANGEL MRN/PID: [id number] Fellow: Nurse: Date of /Age: 10 1965 Oil Developer: Eli Pisano [facility] Gender: M Additional Staff: Height: 162.56 cm Admit Date: Weight: 90.72 kg Admission Status: Outpatient BSA / BMI: 1.96 m2 / 34.33 Department Location: [place] [address] Echo Lab Blood Pressure: 128 /73 mmHg Study Type: TRANSTHORACIC ECHO (TTE) COMPLETE Diagnosis/ICD: Bradycardia, unspecified-R00.1 Indication: Abnormal EKG, Pre-EP CPT Codes: Echo Complete w Full Doppler-97399 Study Detail: The following Echo studies were [...] LA Area A2C: 18.9 cm2 [place] A4C: 5.8 cm LA [place] A2C: 5.5 cm LA Volume Index: 27.0 [...] 1.3 m/s (0.6-0.9m/s) PV Max P.6 mmHg [id number] Batsheva Morris MD, FACC Electronically signed on 08/05/2023 at 2:30:14 PM Final [facility] Work Phone: XR CHEST 1 VIEWon 08-05-2023 XR CHEST 1 VIEW Interpreted By: Salvatore Clark, STUDY: XR CHEST 1 VIEW INDICATION: Signs/Symptoms:post implant. COMPARISON: None ACCESSION NUMBER(S): [id number] ORDERING CLINICIAN: ANA M KUMARI FINDINGS: No consolidation, effusion, edema, or pneumothorax. Pacemaker placed without pneumothorax. Position satisfactory. IMPRESSION: Status post pacemaker placement. Signed by: Salvatore Clark 08/05/2023 6:10 PM Dictation workstation: [id number] [facility] Comment on above: Order Comment: Vahe heard. XR Chest Single viewon 08-04 Status post pacemaker placement. Signed by: Salvatore Clark 08/05/2023 6:10 PM Dictation workstation: [id number] MMODAL Interpreted By: Salvatore Clark, STUDY: XR CHEST 1 VIEW INDICATION: Signs/Symptoms:post implant. COMPARISON: None ACCESSION NUMBER(S): [id number] ORDERING CLINICIAN: ANA M KUMARI FINDINGS: No consolidation, effusion, edema, or pneumothorax. Pacemaker placed without pneumothorax. Position satisfactory. [facility] MMODAL Salvatore Clark MD - 08/05/2023 Interpreted By: Salvatore Clark, STUDY: XR CHEST 1 VIEW INDICATION: Signs/Symptoms:post implant. COMPARISON: None ACCESSION NUMBER(S): [id number] ORDERING CLINICIAN: ANA M KUMARI FINDINGS: No consolidation, effusion, edema, or pneumothorax. Pacemaker placed without pneumothorax. Position satisfactory. IMPRESSION: Status post pacemaker placement. Signed by: Salvatore Clark 08/05/2023 6:10 PM Dictation workstation: [id number] [facility] Work Phone: Radiology Study observation (narrative) [facility] Work Phone: XR Chest Single viewOrdered By: Salvatore Clark on 08-05-2023 [facility] Work Phone: ECG 12 lead (Clinic Performe d)on 07-22-2023 EKG shows marked sinus bradycardia rate of 41 bpm QRS ration 100 ms QT corrected he had a 91 ms. Rhythm strip shows the same pattern. [facility] Work Phone: CT LUNG CANCER [...] by: BATSHEVA ALVARADO Date: 2022-07-15 12:10 Normal [facility] Office Visit (Cardiology)on 07-14-2022 Follow-up visit Diagnoses/Problems [...] we can help. You may also call [phone] for free resources and assistance.; Status:Complete - [...] ischemic evaluation. He underwent cardiac catheterization in [place] which showed no significant obstructive disease 3. [...] BY MOUTH FOUR TIMES A DAY NEEDED Xbkvlm4q at bedtime Singulair 10 MG Oral TabletTAKE [...] Recorded: 14Jul2022 10:57AM Heart Rate34, L Radial Vfmosqtj310, LUE, Sitting Ifnkssupj46, LUE, Sitting Height5 ft 4 in Nltsyj260 lb BMI Itvkisaqmu74.96 kg/m2 BSA Calculated1.92 Tobacco Usea) Yes Patient encouraged to st (more content not included)... Normal [facility] Tobacco Screening.on 023 Adult depression screening assessment No [facility] be[employer]ruited DO Work Phone: Fall risk assessment a) No falls within the last year [facility] beRecruited DO Work Phone: Tobacco use status CPHS a) Yes [facility] [employer] 600 DO Work Phone: Tobacco Screening. Yes [facility] [employer] 600 DO Work Phone: CT ABD/PELV W [...] FLEX JACOBS Date: 2022-06-11 10:06 Normal [facility] CBC AUTO DIFFon 05-07-2022 BASO # 0.1 103/ul Normal 0.0-0.1 [facility] Comment on above: Performed By: #### C BC #### [facility] [address] [place] [address] [address] Britt Mendoza Basophils/100 WBC (Bld) 1.6 % Normal 0.2-2.0 T [facility] Comment on above: Performed By: #### C BC #### [facility] [address] [place] [address] [address] Britt Mendoza EO # 0.2 103/ul Normal 0.0-0.7 [facility] Comment on above: Performed By: #### C BC #### [facility] [address] [place] [address] Dr. Britt Mendoza Eosinophils/100 WBC (Bld) 3.0 % Normal 0.9-7.0 [facility] Comment on above: Performed By: #### C BC #### [facility] [address] [place] [address] Dr. Britt Mendoza Erythrocyte distribution width (RBC) [Ratio] 12.4 % Normal 11.0-15.0 [facility] Comment on above: Performed By: #### C BC #### [facility] [address] [place] [address] Dr. Britt Mendoza Hematocrit (Bld) [Volume fraction] 43.2 % Normal 42.0-54.0 [facility] Comment on above: Performed By: #### C BC #### [facility] [address] [place] [address] Dr. Britt Mendoza Hemoglobin (Bld) [Mass/Vol] 14.7 g/dL Normal 14.0-18.0 [facility] Comment on above: Performed By: #### C BC #### [facility] [address] [place] [address] Dr. Britt Mendoza IG # 0.11 10e3/ul Critically high 0.00-0.03 The [facility] Comment on above: Performed By: #### C BC #### [facility] [address] [place] [address] Dr. Britt Mendoza IG % 1.4 % Critically high 0.0-0.5 The [facility] Comment on above: Performed By: #### C BC #### [facility] [address] [place] [address] Dr. Britt Mendoza LYMPH # 1.7 103/ul Normal 1.2-3.8 [facility] Comment on above: Performed By: #### C BC #### [facility] [address] [place] [address] Dr. Britt Mendoza Lymphocytes/100 WBC (Bld) 21.6 % Normal 20.5-60.0 [facility] Comment on above: Performed By: #### C BC #### [facility] [address] [place] [address] Dr. Britt Mendoza MANUAL DIFF REQ NO Normal [facility] Comment on above: Performed By: #### C BC #### [facility] [address] [place] [address] Dr. Britt Mendoza MCH (RBC) [Entitic mass] 31.2 pg Normal 25.9-34.0 [facility] Comment on above: Performed By: #### C BC #### [facility] [address] [place] [address] Dr. Britt Mendoza MCHC (RBC) [Mass/Vol] 34.0 g/dL Normal 29.9-35.2 [facility] Comment on above: Performed By: #### C BC #### [facility] [address] [place] [address] Dr. Britt Mendoza MCV (RBC) [Entitic vol] 91.7 fL Normal 80.0-94.0 [facility] Comment on above: Performed By: #### C BC #### [facility] [address] [place] [address] Dr. Britt Mendoza MONO # 0.5 103/ul Normal 0.3-0.8 [facility] Comment on above: Performed By: #### C BC #### [facility] [address] [place] [address] Dr. Britt Mendoza Monocytes/100 WBC (Bld) 6.8 % Normal 1.7-12.0 [facility] Comment on above: Performed By: #### C BC #### [facility] [address] [place] [address] Dr. Britt Mendoza NEUT # 5.0 103/ul Normal 1.4-6.5 [facility] Comment on above: Performed By: #### C BC #### [facility] [address] [place] [address] [address] Britt Mendoza Neutrophils/100 WBC (Bld) 65.6 % Normal 43.0-75.0 [facility] Comment on above: Performed By: #### C BC #### [facility] [address] [place] [address] [address] Britt Mendoza Platelet mean volume (Bld) [Entitic vol] 9.7 fL Normal 9.5-13.5 [facility] Comment on above: Performed By: #### C BC #### [facility] [address] [place] [address] [address] Britt Mendoza PLT 244 103/ul Normal 150-450 [facility] Comment on above: Performed By: #### C BC #### [facility] [address] [place] [address] [address] Britt Mendoza RBC 4.71 106/ul Normal 4.70-6.10 [facility] Comment on above: Performed By: #### C BC #### [facility] [address] [place] [address] [address] Britt Mendoza WBC 7.6 103/ul Normal 4.0-11.0 [facility] Comment on above: Performed By: #### C BC #### [facility] [address] [place] [address] [address] Britt Mendoza GLYCOHEMOGLOBIN A1Con 2021 ADA RECOMMENDATION SEE BELOW Normal [facility] Comment on above: Result Comment: ADA RECOMMENDED LIMIT 4.0 - 6.0 ADA THERAPEUTIC TARGET < 7.0 ACTION SUGGESTED > 7.0 Performed By: #### A 1C ####[facility] [address] [place] [id number]. Britt Mendoza Glucose [Mass/Vol] 117 mg/dL Normal [facility] Comment on above: Performed By: #### A 1C ####[facility] [address] [place] [id number]. Britt Mendoza HbA1c (Bld) [Mass fraction] 5.7 % Normal 4.5-6.2 [facility] Comment on above: Performed By: #### A 1C ####[facility] [address] [place] [id number]. Britt Mendoza LIPID PROFILEon 05-07-2022 CHOL-HDL RATIO NORM SEE BELOW Normal [facility] Comment on above: Result Comment: 3.3 - 4.4 LOW RISK 4.4 - 7.1 AVERAGE RISK 7.1 - 11.0 MODERATE RISK >11.0 HIGH RISK Performed By: #### B MP, LIVER, LIPID, TSH ####[facility] [address] [place] [id number]. Anjalilan Mendoza Cholesterol [Mass/Vol] 235 mg/dL Critically high <=200 [facility] Comment on above: Performed By: #### B MP, LIVER, LIPID, TSH ####[facility] [address] [place] [phone]. Anjalilan Mendoza Cholesterol in HDL [Mass/Vol] 40 mg/dL Normal 40-60 [facility] Comment on above: Performed By: #### B MP, LIVER, LIPID, TSH ####[facility] [address] [place] [phone]. Anjalilan Mendoza Cholesterol in LDL [Mass/Vol] 156.8 mg/dL Normal [facility] Comment on above: Performed By: #### B MP, LIVER, LIPID, TSH ####[facility] [address] [place] [id number]. Britt Mendoza Cholesterol.total/Viola sterol in HDL [Mass ratio] 5.9 {ratio} Normal [facility] Comment on above: Performed By: #### B MP, LIVER, LIPID, TSH ####[facility] [address] [place] [phone]. Anjalilan Mendoza HDL NORMAL > or = 60 mg/dl - LOW CARDIOVASCULAR RISK <40 mg/dl - HIGH CARDIOVASCULAR RISK Normal [facility] Comment on above: Performed By: #### B MP, LIVER, LIPID, TSH ####[facility] [address] [place] [phone]. Anjalilan Mendoza LDL CALC NORMAL SEE BELOW Normal [facility] Comment on above: Result Comment: <100 mg/dl OPTIMAL 100 - 129 mg/dl NEAR OR ABOVE OPTIMAL 130 - 159 mg/dl BORDERLINE HIGH 160 - 189 mg/dl HIGH >190 mg/dl VERY HIGH Performed By: #### B MP, LIVER, LIPID, TSH ####[facility] [address] [place] [address]Dr. Britt Mendoza Triglyceride [Mass/Vol] 191 mg/dL Critically high <=150 [facility] Comment on above: Performed By: #### B MP, LIVER, LIPID, TSH ####[facility] [address] [place] [address]Dr. Britt Mendoza VLDL CALC 38.2 mg/dL Normal [facility] Comment on above: Performed By: #### B MP, LIVER, LIPID, TSH ####[facility] [address] [place] [address]Dr. Britt Mendoza LIVER PROFILEon 05-07-2022 Albumin [Mass/Vol] 3.6 g/dL Normal 3.4-5.0 [facility] Comment on above: Performed By: #### B MP, LIVER, LIPID, TSH ####[facility] [address] [place] [address]Dr. Britt Mendoza Albumin/Globulin [Mass ratio] 1.1 {ratio} Normal [facility] Comment on above: Performed By: #### B MP, LIVER, LIPID, TSH ####[facility] [address] [place] [address]Dr. Britt Mendoza ALP [Catalytic activity/Vol] 84 U/L Normal 46-116 [facility] Comment on above: Performed By: #### B MP, LIVER, LIPID, TSH ####[facility] [address] [place] [address]Dr. Britt Mendoza ALT [Catalytic activity/Vol] 34 U/L Normal 16-63 [facility] Comment on above: Performed By: #### B MP, LIVER, LIPID, TSH ####[facility] [address] [place] [address]Dr. Britt Mendoza AST [Catalytic activity/Vol] 21 U/L Normal 15-37 [facility] Comment on above: Performed By: #### B MP, LIVER, LIPID, TSH ####[facility] [address] [place] [phone]. Britt Mendoza BILI, CONJUGATED 0.1 mg/dL Normal 0.0-0.2 [facility] Comment on above: Performed By: #### B MP, LIVER, LIPID, TSH ####[facility] [address] [place] [phone]. Britt Mendoza Bilirubin [Mass/Vol] 0.4 mg/dL Normal 0.2-1.0 [facility] Comment on above: Performed By: #### B MP, LIVER, LIPID, TSH ####[facility] [address] [place] [address]Dr. Britt Mendoza Globulin (S) [Mass/Vol] 3.4 g/dL Normal [facility] Comment on above: Performed By: #### B MP, LIVER, LIPID, TSH ####[facility] [address] [place] [address]Dr. Britt Mendoza Protein [Mass/Vol] 7.0 g/dL Normal 6.4-8.2 [facility] Comment on above: Performed By: #### B MP, LIVER, LIPID, TSH ####[facility] [address] [place] [address]DrAtiya Mendoza PROF CHEM 8 (BAS METB)on Anion gap [Moles/Vol] 13.8 mmol/L Normal [facility] Comment on above: Result Comment: Prev iously reported as: -2.3 On 05/07/2022 13:50 By DM9 Performed By: #### B MP, LIVER, LIPID, TSH #### [facility] [address] [place] [address] [address] Britt Mendoza Calcium [Mass/Vol] 9.2 mg/dL Normal 8.5-10.1 [facility] Comment on above: Performed By: #### B MP, LIVER, LIPID, TSH #### [facility] [address] [address] [address] Britt Mendoza Chloride [Moles/Vol] 99 mmol/L Normal 98-107 [facility] Comment on above: Result Comment: Prev iously reported as: 106 On 05/07/2022 13:50 By DM9 Performed By: #### B MP, LIVER, LIPID, TSH #### [facility] [address] [address] [address] Britt Mendoza CO2 [Moles/Vol] 27.3 mmol/L Normal 21.0-32.0 [facility] Comment on above: Result Comment: Prev iously reported as: 29.2 On 05/07/2022 13:50 By DM9 Performed By: #### B MP, LIVER, LIPID, TSH #### [facility] [address] [address] [address] Britt Mendoza Creatinine [Mass/Vol] 1.12 mg/dL Normal 0.70-1.30 [facility] Comment on above: Performed By: #### B MP, LIVER, LIPID, TSH #### [facility] [address] [address] [address] Britt Mendoza EGFR-AF SWEDISH >60 Normal >=60 [facility] Comment on above: Performed By: #### B MP, LIVER, LIPID, TSH #### [facility] [address] [address] [address] Britt Mendoza EGFR-NON AF SWEDISH >60 Normal >=60 [facility] Comment on above: Performed By: #### B MP, LIVER, LIPID, TSH #### [facility] [address] [address] [address] Britt Mendoza Glucose [Mass/Vol] 108 mg/dL Critically high 74-106 T [facility] Comment on above: Performed By: #### B MP, LIVER, LIPID, TSH #### [facility] [address] [address] [address] Britt Mendoza Potassium [Moles/Vol] 4.1 mmol/L Normal 3.5-5.1 [facility] Comment on above: Result Comment: Prev iously reported as: 3.9 On 05/07/2022 13:50 By DM9 Performed By: #### B MP, LIVER, LIPID, TSH #### [facility] [address] [address] [address] Britt Mendoza Sodium [Moles/Vol] 136 mmol/L Normal 136-145 [facility] Comment on above: Result Comment: Prev iously reported as: 129 On 05/07/2022 13:50 By DM9 Performed By: #### B MP, LIVER, LIPID, TSH #### [facility] [address] [place] [address] Dr. Britt Mendoza Urea nitrogen [Mass/Vol] 26.0 mg/dL Critically high 7.0-18.0 [facility] Comment on above: Performed By: #### B MP, LIVER, LIPID, TSH #### [facility] [address] [address] [address] Britt Mendoza Urea nitrogen/Creatinine [Mass ratio] 23.2 mg/mg Normal [facility] Comment on above: Performed By: #### B MP, LIVER, LIPID, TSH #### [facility] [address] [place] [address] Dr. Britt Mendoza TSHon 05-07-2022 TSH 0.828 uIU/mL Normal 0.358-3.740 [facility] Comment on above: Performed By: #### B MP, LIVER, LIPID, TSH ####[facility] [address] [address]Dr. Britt Mendoza VITAMIN D 25 OHon 05-07-2022 VIT D 25-OH 45.6 ng/mL Normal [facility] Comment on above: Performed By: #### V BRENDAN PSASC #### [facility] [address] [place] [address] Dr. Britt Mendoza VIT D RANGES SEE BELOW Normal [facility] Comment on above: Result Comment: <20 ng/mL Vit D deficient 20 - <30 ng/mL Vit D insufficient 30 - 100 ng/mL Vit D sufficient >100 ng/mL Potential Toxicity Performed By: #### V BRENDAN, PSASC #### [facility] [address] [place] [address] Dr. Britt Mendoza [facility]on SARS-CoV-2 (COVID-19) RNA KATT+probe Ql (Unsp spec) Detected Critically abnormal NOT DETECTED [facility] Comment on above: Result Comment: This test is not yet approved or cleared by the [place] FDA. When there are no FDA-approved or cleared tests available, and other criteria are met, FDA can make tests available under an emergency access mechanism called an Emergency Use Authorization (EUA). The EUA for this test is supported by the Integration Solution Architect of Health and Human Service's declaration that [...] longer be used). Performed By: #### C [facility] ####[facility] [address] [address]Dr. Britt Mendoza Cardiac Stress Test 2021 Cardiac Stress Test [address], [address] [place] [address] Exercise Stress Test Patient Name: LILIANA E BRANDO CORDERO Ordering Physician: [id number] Ty MD Study Date: 02/15/2022 Reading Physician: [id number] Ty MD MRN/PID: [id number] Supervising Physician: [id number] Yovani Rivera MD Accession/Order#: [id number] Referring Physician: VALENTINO TY Date of : 1965 PCP: Ishmael Simon Gender: M Fellow: Height: 162.56 cm Nurse: Yunior Bhatti RN Weight: 81.65 kg Oil Developer: SAEID BSA: 1.87 m2 Technologist: BMI: 30.90 kg/m2 Additional Staff: Age: 56 years cc report to: Patient Location: report to: [id number] Valentino Ty MD Study Type: Cardiac Stress Test Diagnosis/ICD: R94.31-Abnormal electrocardiogram [ECG] [EKG]; R00.1-Bradycardia, unspecified; R06.00-Dyspnea, unspecified Indication: Dyspnea Procedure/CPT: Stress Test Interpretation-83029 ; Stress Test Supervision-[id number] Falls Risk: Low: Patient has low risk [...] 7. An element of chronotropic incompetency noted. [id number] Valentino Ty MD Electronically signed on 02/16/2022 at 2:52:20 PM Final Normal [facility] Cardiac Stress Test Please click on the link to view the study images [facility] Work Phone: Cardiac Stress Test MP-No r[facility] 250 DO Work Phone: Office [...] Status:Hold For - Scheduling,Retrospec tive Authorization; Requested for:[id number]; Class 1 obesity with body mass index (BMI) of 30.0 to 30.9 in adult Healthy Weight Tips; Status:Complete - Retrospective Authorization; Done: [id number] Some eating tips that can help you lose weight.; Status:Complete - Retrospective Authorization; Done: [id number] Sinus bradycardia You need to stop smoking. Though it is not easy, more than half of all adult smokers have quit. We encourage you to write down all the reasons you should quit smoking and set a quit date for yourself. Ask us how we can help. You may also call 4-506-JPERNOW for free resources and assistance.; Status:Complete - Retrospective Authorization; Done: [id number] SocHx: Current smoker Continue with our present treatment plan.; Status:Complete - Retrospective Authorization; Done: [id number] Tobacco Use Screening; Status:Complete; Done: [id number] Patient Instructions Please bring all medicines, vitamins, [...] This led to a cardiac evaluation in [place] and its not clear to me whether [...] Oral Capsule Delayed ReleaseTAKE 1 CAPSULE Daily Uojiyc0j at bedtime Sin (more content not included)... Normal [facility] Tobacco Screening.on 022 Adult depression screening assessment No [facility] 600 DO Work Phone: Fall risk assessment a) No falls within the last year [facility] 600 DO Work Phone: Tobacco use status CP a) Yes [facility] 600 DO Work Phone: Tobacco Screening. Yes [facility] 600 DO Work Phone: Covid-19 PCR (CVD[facility])on SARS-CoV-2 (COVID-19) RNA KATT+probe Ql (Unsp spec) Not detected Normal NOT DETECTED [facility] Comment on above: Result Comment: This test is not yet approved or cleared by the [place] FDA. When there are no FDA-approved or cleared tests available, and other criteria are met, FDA can make tests available under an emergency access mechanism called an Emergency Use Authorization (EUA). The EUA for this test is supported by the Integration Solution Architect of Health and Human Service's (HHS's) declaration [...] SARS-CoV-2. Performed By: #### C VDTB #### [facility] [address] [place] [address] Dr. Britt Mendoza Covid-19 PCR (CVDTB)on 11-07 SARS-CoV-2 (COVID-19) RNA KATT+probe Ql (Unsp spec) Not detected Normal NOT DETECTED [facility] Comment on above: Result Comment: This test is not yet approved or cleared by the [place] FDA. When there are no FDA-approved or cleared tests available, and other criteria are met, FDA can make tests available under an emergency access mechanism called an Emergency Use Authorization (EUA). The EUA for this test is supported by the Integration Solution Architect of Health and Human Service's (HHS's) declaration [...] consistent with SARS-CoV-2. Performed By: #### C [facility] ####[facility] [address] [place], [place] [address]Re. Britt Mendoza XR CHEST 2 Von 10-01-2021 [...] by: FLEX JACOBS Date: 2021-10-01 09:30 Normal [facility] Ambulatory Clinical Summaryo n 03-05-2021 Ambulatory Clinical Summary {[id number]}CD:[id number] Normal [facility] Historical Records Officeon 03-05-2021 Historical Records Office [id number]:[id number] Normal [facility] Patient Educationon 03-05-20 21 Patient [...] these instructions at home: Medicines ? Take rwpj-ifd-xpnjdws and prescription medicines only as told by [...] of your (more content not included)... Normal [facility] Urology Office/Clinic Noteon 03-05-2021 Urology [...] order. Ordered: Office Visit Level 4 Est 70071 2. Hypogonadism male (E29.1: Testicular hypofunction) noted [...] time. Ordered: Office Visit Level 4 Est 31021 3. BPH with urinary obstruction (N40.1: Benign prostatic hyperplasia with lower urinary tract symptoms) s/p Urolift September 2018. Pt is currently taking no bladder/prostate medication and is mostly satisfied with overall symptom control. has nocturia but attributes this to diuretics. Pt prefers to continue with no changes at this time. PCP checking PSAs per pt. Ordered: Office Visit Level 4 Est 06450 Orders: Urnls Dip Stick Auto w/o Microscopy POC 80237 offered f/u 1 yr but pt prefers PRN. Total time spent reviewing previous notes/results/applications consultant al documents, preparing the chart, conducting the encounter with the patient and family, ordering tests/medications, and documenting the encounter was 30 minutes. Follow-up With When Contact Information ITA SLOAN, SIMONE Priest [address] [place] [address]- Additional Instructions: Patient Education Erectile Dysfunction Problem [...] inhalation powde (more content not included)... Normal [facility] Comment on above: Result Comment: Elec tronically Signed By: TOMEKA SANCHEZ PA-C\.br\Date and Time Signed: 03/05/21 12:24 EDT MRI PELVIS WO CONTRASTon MRI PELVIS WO CONTRAST [facility] Department of Radiology [address] [place] [address] Patient Name: ILLIANA MICHAELS : 1965 Sex: M Age: Race: White Pt. Location: 18 Patient Status: Ordered Date: 09/10/2020 3:35:00 PM Completed Date: 10/03/2020 08:34 AM Requesting Provider: SIMONE RUIZ Attending Provider: Report Copy To: Signs & Symptoms: R10.2 Pelvic and perineal pain I10 History: [place], Right FOREIGN per clinic will fax HOME [facility] auth# [id number] 09/16/20-10/17/20 cpt code 34685 *mla Comments: Right groin to r/o an [...] spine. Electronically signed: Dinh Miller. Transcribed by: [email or web address], User Resident: Electronically Signed by: DINH MILLER @ 10/03/2020 09:57 AM Normal [facility] Comment on above: Order Comment: Right groin to r/o an adductor tear; iliopsoas bursitis or injury Operative Reporton Operative Report MR#: [id number] S [facility] Pt. Name: Liliana Michaels Room #: PMC [...] Ruiz MD Date Trans: 09/10/2020 11:40 P/mmo DN_JN:[id number] cc: Ishmael Simon M.D. [address] [facility] [place] [address] [facility] Coding Summary.on 09-01-2020 Coding Summary. CD:[id number] Gh0bWw+PGhlYWQ+PE1FV EUwE41nvHAgtZ0WK0aKM P1WUEFLNBKWSH7MVJ7np PS7HRloV2MnzxFu EjwqlRHiNG45FSq0SME8 dWplHScsnN4jcGBxW1v7 FzIpUE67gN19FDguZSIx XcX5PjMmntcrmHAn K5gkYnVmnPJjSzk+PHRh YmxlIHdpZHRoPScxMDAl HbSdlGcaMN5sUd5jKFGz LWNvbGxhcHNlOiBj m5siLSUaKWnwIO8xjVvn H3DudPS4XYSya1k5Rk36 dHI+QSFgLAF9zCkiTXte c418IxMus2ntBPZ9 oLBwQKxmLNU2P38zs2V0 DFHtWUSmLUY0gDI4yC3q uRdmhnyxS6VypWKiTiF6 WCY3bEQcoE7hkGjl dgrspE4eLlm+Z29RKW7F XHYHOR1IBwn6N5EcQdht dHI+KF17JISrUC64gLTv dPVsc8vknAm2RdKc HQYrTIO8vQbkENvxx1Uf RPPxG10gkJXqd0D6OUHz nRuwlJOxZcFdbNW6wT2q FRmrtfpcz6bszonn Ptgum9dssp29gZ38P96w FYunFMRmHST4RHUoDCQo yFmzid2utQ1yJe5+IDxj m5teo8dhpXp6NlYa EBRpllYhdQdpUMD0i3Uo Of76V9RcfDbmy1UwUzy7 ba00gRIdb6R6fPH3AEsy JENzhH4oDZqpSoY6 DXYsNnItoX70tJNnWEll Dg1rpKrtfOmhEQ8jVJOc bxbvDQZzoZ5mNQQziFTh lSiaNX8yVSJckswd s235CyKpEGQ0XAIycVNe U8LbyJ7oGoYdPITdSVTa H5AqwUZeCUzaW713URqh BlW7KNFjkmKwD5Jj HLUavUkoBiK0n1K8Gn3S i0IctxgzQYH3ADgqAAV3 MaW2MkNfRnV6A1AvRno9 WYAemNfeRL0lI4Mq OJImnnygpzinnEM2ZGGh KPLgiO11wIGtNVzyNi5o z0W5q419WPHvQZPioT21 Nr4fvMrgGHRmmAMV mB4nniqvu4vsnvptDpMd CXUiABw0DKj4ZJEedNzd HcZxGPN3PoQ5EXM6fTBc fW0vwClpoadqgP2x Oyc+N64mmK9qIBS5ZNX8 qyjrLYSgrmBrFC43HI84 Y9VhXrvsmUKroWL+PGRp ilYvaPpjLM7yUaLq c3quu8HoRFasS5XyVWJx IFitCsk6BURzLXI6xFQ7 tW0yKGFeEAzsl5R0bLL4 F4QeceNskh3cc7dj TGNzUGtnT51seCSiy1X5 OPQrkCI6VPWjqBftXgJq yN53Bfq+COBziUwfu9Mn Lhbrk7ibh9twdMj1 IjMwJSIgdmFsaWduPSJ0 c8UnTf10X51nCRetJJZk EIEhAQEcNSZqtLqcht6i jO5tEz4+PGNvbCB3 jGW9hD1xQKZeOjQ7DNve H519NpIasNQdUxydb3gp n8htpBm8YaMaYZGtwvWt jUkyTVR3y8GaSh33 A66zPAkmMSUpZMYyMVIw NYAoxIwsxx3gvH3rVc1+ UW2jf3pxgt38dC04zGZ+ IKKyVZG9iGosWHya PZWqoW8hDNtcBiI1RHIe UnVkxD45kETmBFosPs7x aCfpkLusJG0rUGBbzxnk i864DoEml2wzDHJd rCRcMEwtZXK6F38uc0X2 LGBcSAOfMNS1xNN1rV7m bGlnbjogbGVmdDsgdmVy nVdoKNedLXvkZ748 IHRvcDsnPlBhdGllbnQg WwQgXRk5H2HrFlo7OVVk kDqaWD7vhNJjCYqjKi4b lUaefDczUO9cBHAh wsgyc781MfXun2hjGSKj rBZvATglDPR4U01fa0K6 RTUvVHQuOAL8xLE9bP4k bGlnbjogbGVmdDsg akEoyQgtZHfbGIzrP181 IHRvcDsnPkJpcnRoIERh aCD1CN01UK09cYUma8H2 kQA8R4HbVMGaqnlt yyblbON7UPLoJQFyfI02 Mm3nrQngJl7fSWCyORC5 UVTvcFEhJ9KxdT4qJkAp BEDrSTFoL8NcaMPa COcbC833GBgqXxM4UUHa vtWwZ7MxNRBhyDwrTrG4 f8S8Xo7HD1V2CZ84HE55 dZNwt9P4rBQ4S0Cl IYTsxrbcsnytiJG3YJVv EWOtfC51Aa2dvKctHj6j PZHbFLY7PJJstIDsQ6Ys aS9yVuHxTCDoNAAt A0DolHSmOPcjT911ZGke VlH7QZQlnkCoM5ReHQGb kShzJtT4u2Z8Yz8XVEr4 WR79CS46gOUgm2X6 tUX7G4VdDRLtfxixdzhs iHA0PBIfZEFpuC15Lb3l uZdtCc9pSCAbMIT9DQKa fYUhD0LllQ8mDkWw KEIyULBdN8JlxPSpHJww R255YYqyDgT8TUDtlqSg Y8TbJJNrpEwuNmX2i8A4 Xn1YCQZqYX10LDH6 pCM1BQ46NA13T8HkLjll dGFibGU+PHRhYmxlIHdp ZHRoPScxMDAlJyBzdHls GL0jNm7iCCPrTBMq vJfrqHVyHjZql8pzYLKd WQvgMN2ytMumF4PbbOM2 PJKly2d8Ro34Y23iT0Xh dXA+UUExbNP7xOX4 kT4iLhNtDhI1EJqmG087 TxMebNVxYsnnn5rbu2vu zPm0EfE3CENoikPzhAmt XHX9l4IiGm29D33f IHdpZHRoPSIxNSUiIHZh aYfofh3huC6xWj5+PGNv yKL1qEY5zI5eSrKpSqC9 WBscB599WmGrqVHp Xalun4rgf7rhsPz1VaCo CMGanjJwqNvhEVF3c0Yb Yu60S8GvhLkgc9AlFjh3 bl49uTUlz3K1vRQ7 X7TvIKObtncepTSytDfx EP9xIPIykzcmPXYquU5o GXEgA6z7ZxXtMsI1QUtl R4VyftB1ADJilPDr SQfcNIJ8J18wq9B6AWCw KLQeXEY6bDA3pV8doPmn bjogbGVmdDsgdmVydGlj ITqgLOmeN521YDLb aJocRKKblY1gBPVzbKXd rCfkWJ0tAJHbzsopFlaH JX5JJfjmVuCREMuxBYtm dGQ+IAWjSGD4hQnd AYiaUJQtyE8kCRLmG5g2 ZeKsGhQ6QBiuA0ZuCLEn elvwGm55vS0hQbVsHjB9 LEhvA2RdshO2MYCq qIMiOEexIUN0D53kq7H6 ADRmLZInMFY9tXV8cR7d bGlnbjogbGVmdDsgdmVy nKokWAijNBssM353 YHGkeWynBeErVwK4MaU1 OgI4D3HcGaq8KENuzEpw PS3gnPHcZJhaXa4bkDzc rXroFX8zGYHwehwp KGJkzN3rZQDtbOQgmLkv FS8uPDKcerbfg142XoCr LYR3QQHobXHeL7IinV4c XzIcRPCgRWYkI0Vp iVCmKBjeF236ZRtzCbX4 TBKgqaKsG1ScHTRiiRzc HnX0k8B0Ij04YdQSTPMv czwvdGQ+PHRkIHN0 oTkkCVbsSFSttE9dCFDa G6m5IgItQaG6ZUymB7Md GKEufojmTd18oJ0zYbKd ZpI1DCrcO1ZonzH9 HLRplYFfNBcyWPI7O29h y0J9EEBfNYZtCUO1zER7 nV3sgEnhnvuapYIywOxd dmVydGljYWwtYWxp L224AKSfbOmnTp2liWA2 W3ClIpa2KJPtfFsdIY5k mLIiSXqgIa6exIczyZzm PH7vXGXblfuyGZQt rD9iGOJnnDOwrEmqCD2b DPAdgaygr111ZfHeDRZ8 ZUCouFPjR4UbkK9lWlAc VNQxLGFoU6ZnoJLy XKysV236HBjzCsN4QSQi fmBlO0CmSMSxyLtiTwO2 l6M9Qr6XzLHdK8OzA8c6 A8IbZuicdRC+PC90 YRAuJG83jVSlfWYji2fe fQh5VyQtVUTiRGT2gWcr EQelh6BpISKyQ98qhUHb q5H1LROekKyyrTAv FnPgwHS4sL7xQOdvfxdr k4lrwjllNsfrd9uqtn90 kE90R94iFIhpQCFaCJKr OJZdMCMvkBocmm7a jM2rAn0+EYOaoVV9gZS1 hI4bGaKnGtU7CDtpN370 VqXlxLOpZevgz2txo5mg vPo9JfWeWPGcvwSd tQlmJFA6j5OzTo05I10t IHdpZHRoPSIyMCUiIHZh sMpnzm8tsK4qRl8+PC9j c4hiru76gW61mFS+ WGSvODW9pCluVPruTBMl gF0eSEtgWwY5KPPaOrYi oT02cWKvYSefEd7myNgb jJzyJG2jPTRflcgu h052RhRqy1rhLWVxgGRr WOooNHN9N02sr7E7HPMb WPJuBCW6vAK9aB2pgApg bjogbGVmdDsgdmVy oEhlMNyxWVvdI967TTFo bTlwQxDcvSSqN9jftwTQ MF0tMdehaDE+PHRkIHN0 xQfiTCgnNNUxzV8a NLCvR3z3VeLxMtK8IKzt M0LuqgV1GTXenPMyTGJy nYFDhC6iiengp7mzzapg ToMqCKNzBAy9DWo0 TXAshPnfFbYjVHB9GaG2 LSK6rYIqtS5nmUdadleg gV3vKcv+RklOOjwvdGQ+ TPRhRZL8zPqvXWsv HPApbB0xQYRjJ5d0CjVt LbY6BGetV3AoibO7NJCu hEAuVZQybLJHhL4zqpvp m3vpyudaVkOhFGBi SHt3QRl0QHGuzAseIpVs KLD3FoN9KHL3qYTcbO0o uBxepuwdtE7tClr+TVJO OjwvdGQ+PHRkIHN0 aCaqLRlwWRGfrP8xVNBd F3s1ZwTiZqP9JCgyC4Lb vvN6XTNzuRFsZZQiwSOE xG9kkpvhh0bvuvac AmBvSGAcXEl8FKe5MZRf yOvqLeVlZLN1PhS9BOG9 bYAlpX5odFukzkhckF7x Oyc+YGC5OMN3WZ57 HF01I7BtZiysjSAwmOC+ PHRhYmxlIHdpZHRoPScx ICDfNqScsQfjDD5mXi2q ZGVyLWNvbGxhcHNl OiBj (more content not included)... Normal [facility] Auto Diffon 08-24-2020 Basophils/100 WBC (Bld) 1.0 % Normal 0.0-2.0 [facility] Comment on above: Order Comment: Order Added by Discern Expert. Performed By: #### 1 0585911, 3752491, 9575180, 03252041, 4148873, 0470314, 89302917, 92634578 ####[facility] [address] [place] [address] Basophils/Leukocytes Auto (Bld) [Pure # fraction] 0.1 E9/L Normal 0.0-0.2 [facility] Comment on above: Order Comment: Order Added by Discern Expert. Performed By: #### 1 6272116, 4539116, 7882230, 16148799, 9606143, 3512067, 74204722, 97238198 ####[facility] [address] [place] [address] Eosinophils/100 WBC (Bld) 2.5 % Normal 0.0-8.0 [facility] Comment on above: Order Comment: Order Added by Discern Expert. Performed By: #### 1 5800100, 5425671, 6923701, 19783101, 4308055, 7234518, 78625961, 18815591 ####[address] [place] [address] Eosinophils/Leukocytes Auto (Bld) [Pure # fraction] 0.3 E9/L Normal 0.0-0.5 [facility] Comment on above: Order Comment: Order Added by Discern Expert. Performed By: #### 1 7044288, 5526160, 9146334, 22258003, 9139203, 7580164, 78393059, 75044309 ####[address] [place] [address] Lymphocytes/100 WBC (Bld) 21.0 % Normal 14.0-50.0 [facility] Comment on above: Order Comment: Order Added by Discern Expert. Performed By: #### 1 4773742, 2173077, 6533500, 98012168, 7348798, 8833956, 21746260, 14035218 ####[address] [address] Lymphocytes/Leukocytes Auto (Bld) [Pure # fraction] 2.1 E9/L Normal 1.0-4.0 [facility] Comment on above: Order Comment: Order Added by Discern Expert. Performed By: #### 1 0998563, 8640814, 2238152, 47102610, 5247716, 7334054, 37471768, 05231952 ####[address] [place] [address] Monocytes/100 WBC (Bld) 6.2 % Normal 4.0-14.0 [facility] Comment on above: Order Comment: Order Added by Discern Expert. Performed By: #### 1 3669082, 2364426, 9059165, 05189817, 2227754, 0366825, 07805555, 43594483 ####[address] [place] [address] Monocytes/Leukocytes Auto (Bld) [Pure # fraction] 0.6 E9/L Normal 0.2-1.0 [facility] Comment on above: Order Comment: Order Added by Crystal Expert. Performed By: #### 1 2840129, 4920828, 6119626, 13330929, 4088636, 5843805, 07557063, 15464327 ####[facility] [address] [place] [address] Neutrophils/100 WBC (Bld) 69.3 % Normal 36.0-75.0 [facility] Comment on above: Order Comment: Order Added by Discern Expert. Performed By: #### 1 8839476, 5300889, 5956397, 90147905, 1606798, 8007594, 24677869, 40353875 ####[facility] [address] [place] [address] Neutrophils/Leukocytes Auto (Bld) [Pure # fraction] 6.9 E9/L Normal 2.0-7.5 [facility] Comment on above: Order Comment: Order Added by Discern Expert. Performed By: #### 1 2423931, 3149316, 8303740, 46485925, 2755960, 6250437, 20336073, 49956386 ####[facility] [address] [place] [address] BMPon 08-24-2020 Creatinine [Mass/Vol] 1.1 mg/dL Normal 0.5-1.3 [facility] Comment on above: Performed By: #### 1 0792475, 5657676, 3025538, 47969535, 6331942, 2778457, 04692557, 26394584 ####[facility] [address] [place] [address] Urea nitrogen [Mass/Vol] 19 mg/dL Normal 5-21 [facility] Comment on above: Performed By: #### 1 1089487, 1681607, 2342629, 25973798, 0421411, 5174880, 72318457, 01801917 ####[facility] [address] [place] [address] Urea nitrogen/Creatinine [Mass ratio] 17 No Units Normal 10-20 [facility] Comment on above: Performed By: #### 1 1634382, 9245844, 0829683, 52701495, 4386901, 4862687, 08150571, 03990038 ####[facility] [address] [place] [address] Anion gap [Moles/Vol] 14 mmol/L Normal 6-16 [facility] Comment on above: Performed By: #### 1 5701994, 1828840, 1368833, 62449402, 0675328, 2936156, 06564636, 42168882 ####[facility] [address] [place] [address] Calcium [Mass/Vol] 9.4 mg/dL Normal 8.9-11.1 [facility] Comment on above: Performed By: #### 1 9384277, 7816318, 4701551, 63044819, 2571827, 3335218, 44511316, 18188875 ####[facility] [address] [place] [address] Chloride [Moles/Vol] 94 mmol/L Low 101-111 [facility] Comment on above: Performed By: #### 1 6584446, 8478296, 3861464, 73340405, 3382695, 1118123, 72840963, 80265034 ####[facility] [address] [place] [address] CO2 [Moles/Vol] 29 mmol/L Normal 21-31 [facility] Comment on above: Performed By: #### 1 3982573, 8104139, 5229693, 30425819, 6660900, 5154039, 11989446, 71492871 ####[facility] [address] [place] [address] Glucose [Mass/Vol] 103 mg/dL Normal 55-199 [facility] Comment on above: Result Comment: If t his glucose result represents a fasting glucose, interpretation should refer to the following reference range: 55-99 mg/dL Performed By: #### 1 5831047, 0655641, 7778713, 35541529, 0971212, 8662316, 11601361, 85276943 ####[facility] [address] [place] [address] Potassium [Moles/Vol] 4.0 mmol/L Normal 3.5-5.3 [facility] Comment on above: Performed By: #### 1 7411520, 9397321, 0256222, 57577190, 3235985, 3975517, 21434377, 23271820 ####[address] [place] [address] Sodium [Moles/Vol] 133 mmol/L Low 135-145 [facility] Comment on above: Performed By: #### 1 4388208, 1845027, 8206955, 59407594, 7584504, 8271214, 21289657, 54561738 ####[address] [address] BNPon 08-24-2020 Natriuretic peptide B (Bld) [Mass/Vol] 17 pg/mL Normal 5-80 [facility] Comment on above: Performed By: #### 1 3668732, 0993902, 9526607, 29415366, 4952415, 8988565, 89877103, 70490666 ####[address] [address] CBC w/ Auto Diffon Erythrocyte distribution width (RBC) [Ratio] 12.9 % Normal 10.9-14.2 [facility] Comment on above: Performed By: #### 1 7367852, 6189732, 4153120, 02534194, 1317085, 3153940, 67936996, 39501771 ####[address] [place] [address] Hematocrit (Bld) [Volume fraction] 44.4 % Normal 37.7-49.0 [facility] Comment on above: Performed By: #### 1 2818618, 5443904, 3301420, 88980779, 1973558, 7482003, 85781029, 15172865 ####[facility] [address] [place] [address] Hemoglobin (Bld) [Mass/Vol] 15.3 g/dL Normal 13.5-17.5 [facility] Comment on above: Performed By: #### 1 7286021, 2635155, 2114368, 12536511, 9689068, 8019322, 20792315, 14630230 ####[facility] [address] [place] [address] MCH (RBC) [Entitic mass] 31.5 pg Normal 27.0-34.0 [facility] Comment on above: Performed By: #### 1 0443550, 5108775, 2958107, 85529327, 8105576, 4759606, 52573458, 44060532 ####[address] [address] MCHC (RBC) [Mass/Vol] 34.4 g/dL Normal 31.4-36.0 [facility] Comment on above: Performed By: #### 1 7415447, 3265837, 4666363, 72208841, 6607577, 7769657, 37352540, 71999596 ####[address] [address] MCV (RBC) [Entitic vol] 91.6 fL Normal 80.0-100.0 [facility] Comment on above: Performed By: #### 1 2362503, 4805189, 4796497, 19061818, 4302385, 3107560, 39160650, [id number] ####[address] [place] [address] Platelet mean volume (Bld) [Entitic vol] 8.4 fL Normal 6.4-10.8 [facility] Comment on above: Performed By: #### 1 [id number], 5445009, 8480041, 55169267, 8463460, 3390348, 45661603, 33923560 ####[facility] [address] [place] [address] Platelets (Bld) [#/Vol] 289.0 E9/L Normal 150.0-500.0 [facility] Comment on above: Performed By: #### 1 1162678, 4661820, 4648728, 97877069, 5516095, 4432609, 47877504, 79417171 ####[facility] [address] [place] [address] RBC (Bld) [#/Vol] 4.8 E12/L Normal 4.3-5.9 [facility] Comment on above: Performed By: #### 1 5036505, 0578481, 9791690, 76334119, 8215171, 1553619, 65639937, 67788759 ####[address] [place] [address] WBC corrected for nucl RBC Auto (Bld) [#/Vol] 9.9 E9/L Normal 4.0-11.0 [facility] Comment on above: Performed By: #### 1 5449697, 9469501, 6760316, 99733992, 9251980, 4811943, 52201599, 96436585 ####[address] [address] CTA Cheston 08-24-2020 CTA Chest Exam Date/Time: [...] 370 Contrast amount in ml's: 78 Normal [facility] Consent for Treatmenton 08-07 Consent for Treatment [id number] #1.00CD:127 Normal [facility] D-Dimeron 08-24-2020 Fibrin D-dimer FEU (PPP) [Mass/Vol] 845 ng/mL Abnormal 215-500 [facility] Comment on above: Result Comment: [...] infections Liver cirrhosis Performed By: #### 1 0358320, 6012936, 9290690, 90677154, 5948907, 4515333, 03264650, 07763040 ####[facility] [address] [place] [address] Discharge Instructionson Discharge Instructions [id number] #1.00CD:127 Normal [facility] ED Clinical Summaryon 2020 ED Clinical Summary [address] [address] ED Clinical Summary Person Information Name: LILIANA MICHAELS [place] Age: 55 Years : 1965 Sex: Male Language: Sri Lankan PCP: SIMONE JEAN BAPTISTE DC Marital Status: Single Phone: [phone] Visit Id: Visit Reason: Rib/trunk pain-swelling; SIDE [...] 08/24/2020 03:27:58 08/24/2020 03:27:58 08/24/2020 03:27:58 ADDRESS: [address] [place] [address] [id number] PHYS DOC NOTES: MEDICAL INFORMATION: Prescriptions Given: New Medications [id number], [address] [place], [place] [id number], [phone] azithromycin (Zithromax TRI-AMIRA 500 mg oral tablet) [...] Address: When: SIMONE JEAN BAPTISTE [address] [place] [id number] Business (1) In 1 day 08/25/2020 Comments: Patient is advised to follow-up with his primary care physician in 1 to 2 days. He is also advised to come back to the emergency department if symptoms get worse. DIAGNOSIS: 1:Rib pain on left side Normal [facility] ED Note-Physicianon 08-25-19 ED Note-Physician [...] date 08/24/20 2:30:00 EDT Rapid COVID Antigen ([facility]) Orders: albuterol-ipratropiu m, 3 mL, Soln-Inh, Inhalation, Once, Stop date 08/24/20 0:16:00 EDT, STAT, Start date 08/24/20 0:16:00 EDT azithromycin, 500 mg = 1 tab(s), Oral, Daily, # 3 tab(s), Refills(s) 0, Pharmacy: [id number], 163, cm, 08/24/20 0:04:00 EDT, Height/Length Dosing, [...] EDT, Julian (more content not included)... Normal [facility] Comment on above: Result Comment: [...] Document Reviewed: 11/28/2008 ExitCare? Patient Information ?2014 [employer] This information is not intended to replace advice given to you by your health care provider. Make sure you discuss any questions you have with your health care provider. Normal [facility] ED Patient Summaryon 021 ED Patient Summary [address] [address] Patient Discharge Instructions Person Information Name: LILIANA MICHAELS Age: 55 Years Arrival Date: 08/23/2020 23:48:11 Discharge Diagnosis: 1:Rib pain on left side Primary Care Physician: SIMONE JEAN BAPTISTE DC Provider Information Primary Provider: Pia LANE, David Advanced Design Assistant:None The exam and treatment you received in the Emergency Department were for an urgent problem and are not intended as complete care. It is important that you follow up with a doctor, nurse practitioner, or physician?s television production assistant for ongoing care. If your symptoms [...] With: Address: When: SIMONE JEAN BAPTISTE [address] [place] [id number] Business (1) In 1 day 08/25/2020 Comments: [...] opioids can be used to help relieve eunumqxx-tn-erwkse pain and are often prescribed following a [...] be struggling (more content not included)... Normal [facility] PT & PTTon 08-24-2020 aPTT Coag (PPP) [Time] 30.2 second(s) Normal 25.1-36.5 [facility] Comment on above: Result Comment: Hepa rin therapeutic range (represented by Anti-Factor Xa activity of 0.2 - 0.4 U/mL) corresponds to PTT of 56.6 - 109.0 sec. Performed By: #### 1 9550494, 5003715, 3303627, 62457570, 9723368, 2989145, 54773360, 77137811 ####[facility] [address] [place] [address] INR Coag (PPP) [Relative time] 1.0 {INR} Invalid Interpretation Code [facility] Comment on above: Result Comment: INR results are specifically intended to assess patients stabilized on long-term Anticoagulation therapy suggested INR?s ?Less Intensive Anticoagulation? 2.0 ? 3.0 Conventional Range 3.0 ? 4.5 Performed By: #### 1 8935482, 5582840, 2469307, 47356536, 4774369, 6065245, 78412592, 94613770 ####[facility] [address] [place] [address] PT Coag (PPP) [Time] 11.6 second(s) Normal 10.2-12.9 [facility] Comment on above: Performed By: #### 1 4855859, 8555086, 9224254, 29542667, 9377174, 9079005, 37591412, 60812341 ####[facility] [address] [place] [address] RAD - Preliminary Cat Scan R nancy 08-24-2020 RAD - Preliminary Cat Scan Report [id number] #1.00CD:127 Normal [facility] Rapid COVID Antigen ([facility])on 08-24-2020 Rapid COV Int NEG Ctl Pass Normal [facility] Comment on above: Performed By: #### 2 [id number] ####[facility] [address] [place] [address] Rapid COV Int POS Ctl Pass Normal [facility] Comment on above: Performed By: #### 2 [id number] ####[facility] [address] [place] [address] SARS-CoV-2 (COVID-19) RNA KATT+probe Ql (Unsp spec) Not detected Normal Not Detected [facility] Comment on above: Result Comment: The Playblazeritor? System for Rapid Detection of SARS-CoV-2 is [...] or revoked sooner. Performed By: #### 2 [id number] ####[address] [place] [address] Employed in Healthcare NO Normal [facility] Comment on above: Performed By: #### 2 [id number] ####[address] [facility] [place] [address] First Test Unknown [facility] Comment on above: Performed By: #### 2 [id number] ####[address] [facility] [place] [address] Hospitalized? NO Normal [facility] Comment on above: Performed By: #### 2 [id number] ####[address] [facility] [place] [address] ICU NO [facility] Comment on above: Performed By: #### 2 [id number] ####[address] [facility] [place] [address] ? NO [facility] Comment on above: Performed By: #### 2 [id number] ####[address] [facility] [place] [address] Resides in a Congregate Care Setting NO [facility] Comment on above: Performed By: #### 2 [id number] ####[address] [place] [address] Symptomatic as defined by [facility] YES [facility] Comment on above: Performed By: #### 2 [id number] ####[address] [place] [address] Troponin 0 Hr.on 08-24-2020 Troponin I.cardiac [Mass/Vol] 4.10 pg/mL Low 15.90-38.40 [facility] Comment on above: Result Comment: The 95% CI (Confidence Interval) PPV (Positive Predictive Value) for myocardial infarction in females is 38 pg/mL, in males 51 pg/mL. The results should be used in conjunction with clinical conditions of myocardial infarction. (Access High Sensitivity Troponin I Instructions For Use, Molecule [employer]th, December 2017) Performed By: #### 1 9012435, 1889109, 0471909, 31808195, 5150172, 7674315, 94226977, 93945311 ####[address] [place] [address] Troponin 3 Hr.on 08-24-2020 Troponin I.cardiac [Mass/Vol] 4.40 pg/mL Low 15.90-38.40 [facility] Comment on above: Result Comment: The 95% CI (Confidence Interval) PPV (Positive Predictive Value) for myocardial infarction in females is 38 pg/mL, in males 51 pg/mL. The results should be used in conjunction with clinical conditions of myocardial infarction. (Access High Sensitivity Troponin I Instructions For Use, Molecule Synth, December 2017) Performed By: #### 1 [id number] ####[address] [place] [address] XR Chest Single Viewon 08-24 XR Chest [...] V. Transcribed by: VIVIAN Technologist: DAT Perry [facility] eGFRon 08-24-2020 GFR/1.73 sq M.predicted among blacks MDRD (S/P/Bld) [Vol rate/Area] mL/min/{1.73_m2} Normal >=59 [facility] Comment on above: Order Comment: Order added by Discern Expert. Result Comment: eGFR is race adjusted. AA=. Performed By: #### 1 4400108, 7159199, 0277372, 94366392, 6187774, 5673944, 96057652, 22938252 ####[facility] [address] [place] [address] GFR/1.73 sq M.predicted among non-blacks MDRD (S/P/Bld) [Vol rate/Area] mL/min/{1.73_m2} Normal >=59 [facility] Comment on above: Order Comment: Order added by Discern Expert. Result Comment: Workforce Staffing Advisor jeniffer kidney disease could be indicated at eGFR's of less than 60 mL/min/1.73m2. Kidney failure is indicated at less than 15 mL/min/1.73m2. Performed By: #### 1 3305706, 3988312, 3440797, 32523217, 5500282, 8044504, 24907404, 57263684 ####[address] [place] [address] HIP RIGHT 1 OR 2 VWS WITH PE LVISon 07-24-2020 HIP RIGHT 1 OR 2 VWS WITH PELVIS [facility] Department of Radiology [address] [place] [phone] Patient Name: LILIANA MICHAELS : 1965 [...] Electronically signed: Ana M Mariee. Transcribed by: [email or web address], User Resident: Electronically Signed by: ANA M MARIEE @ 07/24/2020 10:01 AM Normal [facility] Comment on above: Order Comment: Views (X-RAY, HIP): Radiologic Protocol HIP RIGHT 1 OR 2 VWS WITH PE LVISon 04-24-2020 HIP RIGHT 1 OR 2 VWS WITH PELVIS [facility] Department of Radiology [address] [place] [phone] Patient Name: LILIANA MICHAELS : 1965 Sex: M Age: Race: White Pt. Location: Patient Status: D Ordered Date: 04/24/2020 10:40:00 AM Completed Date: 04/24/2020 10:48 AM Requesting Provider: JEY ELISE Attending Provider: Report Copy To: Signs & Symptoms: Z96.641 Presence of right artificial hip joint I10 History: [place] Comments: Views (X-RAY, HIP): Radiologic Protocol Exam: HIP RIGHT 1 OR 2 VWS WITH PELVIS HIP RIGHT 1 OR 2 VWS WITH PELVIS HISTORY: Hip replacement, follow-up. COMPARISON: 03/14/2020. IMPRESSION: 1. Redemonstrated hip prosthesis, no hardware complication or acute abnormality. Electronically signed: Ed España. Transcribed by: [email or web address], User Resident: Electronically Signed by: ED ESPAÑA @ 04/25/2020 08:22 AM Normal [facility] Comment on above: Order Comment: Views (X-RAY, HIP): Radiologic Protocol Operative Reporton 0 Operative Report MR#: [id number] [facility] Pt. Name: Liliana Michaels Room #: 6AB [id number] Discharge 03/15/2020 Date: Birthdate: 1965 OPERATIVE REPORT [...] a (more content not included)... Normal [facility] BASIC METABOLIC PANELon 11-0 Calcium [Mass/Vol] 8.8 mg/dL Normal 8.6-10.3 [facility] Comment on above: Order Comment: Views (X-RAY, HIP): Radiologic Protocol Performed By: #### 0 0071 ####[facility] [place] [address], [facility] Chloride [Moles/Vol] 98 mmol/L Normal 98-107 [facility] Comment on above: Order Comment: Views (X-RAY, HIP): Radiologic Protocol Performed By: #### 0 0071 ####[facility] [place] [address], [facility] CO2 [Moles/Vol] 30 mmol/L Normal 21-31 [facility] Comment on above: Order Comment: Views (X-RAY, HIP): Radiologic Protocol Performed By: #### 0 0071 ####[facility] [facility] [place] [address], [place] Creatinine [Mass/Vol] 0.96 mg/dL Normal 0.70-1.30 [facility] Comment on above: Order Comment: Views (X-RAY, HIP): Radiologic Protocol Performed By: #### 0 0071 ####[facility] [facility] [place] [address], [facility] GFR/1.73 sq M.predicted among blacks MDRD (S/P/Bld) [Vol rate/Area] mL/min/{1.73_m2} Normal >60 [facility] Comment on above: Order Comment: Views (X-RAY, HIP): Radiologic Protocol Performed By: #### 0 0071 ####[facility] [facility] [place] [address], [facility] GFR/1.73 sq M.predicted among non-blacks MDRD (S/P/Bld) [Vol rate/Area] mL/min/{1.73_m2} Normal >60 [facility] Comment on above: Order Comment: Views (X-RAY, HIP): Radiologic Protocol Performed By: #### 0 0071 ####[facility] [facility] [place] [address], [place] Glucose [Mass/Vol] 151 mg/dL High 70-100 [facility] Comment on above: Order Comment: Views (X-RAY, HIP): Radiologic Protocol Performed By: #### 0 0071 ####[facility] [place] [address], [place] Potassium [Moles/Vol] 4.4 mmol/L Normal 3.5-5.1 [facility] Comment on above: Order Comment: Views (X-RAY, HIP): Radiologic Protocol Performed By: #### 0 0071 ####[facility] [facility] Sodium [Moles/Vol] 133 mmol/L Low 136-145 [facility] Comment on above: Order Comment: Views (X-RAY, HIP): Radiologic Protocol Performed By: #### 0 0071 ####[facility] [facility] Urea nitrogen [Mass/Vol] 20 mg/dL Normal 7-25 [facility] Comment on above: Order Comment: Views (X-RAY, HIP): Radiologic Protocol Performed By: #### 0 0071 ####[facility] CBC COMPLETE BLOOD COUNTon 05-15-2019 Erythrocyte distribution width (RBC) [Ratio] 12.2 % Normal 11.5-15.0 [facility] Comment on above: Order Comment: No: D o not add to previous draw Performed By: #### 5 0608 #### [facility] [address] [facility] [place] [address], [facility] Hematocrit (Bld) [Volume fraction] 42.2 % Normal 39.0-50.0 [facility] Comment on above: Order Comment: No: D o not add to previous draw Performed By: #### 5 0608 #### [facility] [address] [facility] [place] [address], [facility] Hemoglobin (Bld) [Mass/Vol] 13.9 g/dL Normal 13.0-17.0 [facility] Comment on above: Order Comment: No: D o not add to previous draw Performed By: #### 5 0608 #### [facility] [address] [place] [address], [facility] MCH (RBC) [Entitic mass] 31.4 pg Normal 27.0-33.0 [facility] Comment on above: Order Comment: No: D o not add to previous draw Performed By: #### 5 0608 #### [facility] [address] [facility] [place] [address], [facility] MCHC (RBC) [Mass/Vol] 32.9 g/dL Normal 32.0-35.0 [facility] Comment on above: Order Comment: No: D o not add to previous draw Performed By: #### 5 0608 #### [facility] [address] [facility] [place] [address], [facility] MCV (RBC) [Entitic vol] 95.5 fL Normal 82.0-98.0 T [facility] Comment on above: Order Comment: No: D o not add to previous draw Performed By: #### 5 0608 #### [facility] [address] [facility] [place] [address], [facility] Nucleated RBC/100 WBC (Bld) [Ratio] 0 % Normal 0-0 [facility] Comment on above: Order Comment: No: D o not add to previous draw Performed By: #### 5 0608 #### [facility] [address] [facility] [place] [address], [facility] PLAT CNT 254 10*3/uL Normal 150-400 [facility] Comment on above: Order Comment: No: D o not add to previous draw Performed By: #### 5 0608 #### [facility] [address] [facility] [place] [address], [facility] RBC (Bld) [#/Vol] 4.42 10*6/uL Normal 4.20-5.70 [facility] Comment on above: Order Comment: No: D o not add to previous draw Performed By: #### 5 0608 #### [facility] [address] [facility] [place] [id number], [facility] WBC (Bld) [#/Vol] 14.44 10*3/uL High 4.00-10.60 [facility] Comment on above: Order Comment: No: D o not add to previous draw Performed By: #### 5 0608 #### [facility] [address] POC GLUCOSE LABon 03-15-2020 Glucose [Mass/Vol] 193 mg/dL High 70-100 [facility] Comment on above: Performed By: #### 8 5499 #### [facility] [address] CBC W/DIFFon 03-14-2020 ABS IMM GRANS 0.2 10*3/uL Normal 0.0-0.2 [facility] Comment on above: Performed By: #### 5 0103 ####[facility] ABS NEUTROPHILS 8.0 10*3/uL High 1.6-7.6 [facility] Comment on above: Performed By: #### 5 0103 ####[facility] Basophils (Bld) [#/Vol] 0.1 10*3/uL Normal 0.0-0.2 [facility] Comment on above: Performed By: #### 5 0103 ####[facility] [facility] [place] [address], [facility] Basophils/100 WBC (Bld) 1.1 % High 0.0-1.0 T he [facility] Comment on above: Performed By: #### 5 0103 ####[facility] [place] [address], [facility] Eosinophils (Bld) [#/Vol] 0.3 10*3/uL Normal 0.0-0.5 [facility] Comment on above: Performed By: #### 5 0103 ####[facility] [place] [id number], [place] Eosinophils/100 WBC (Bld) 2.7 % Normal 0.0-6.0 [facility] Comment on above: Performed By: #### 5 0103 ####[facility] [facility].[address] Erythrocyte distribution width (RBC) [Ratio] 12.3 % Normal 11.5-15.0 [facility] Comment on above: Performed By: #### 3 ####[facility] [facility].[address] Hematocrit (Bld) [Volume fraction] 50.5 % High 39.0-50.0 [facility] Comment on above: Performed By: #### 102 ####[address] Hemoglobin (Bld) [Mass/Vol] 17.3 g/dL High 13.0-17.0 [facility] Comment on above: Performed By: #### 3 ####[place] [address] IMMATURE GRANS 1.4 % High 0.0-1.0 [facility] Comment on above: Performed By: #### 3 ####[facility] [facility].[address] Lymphocytes (Bld) [#/Vol] 1.8 10*3/uL Normal 1.2-4.0 [facility] Comment on above: Performed By: #### 3 ####[place] [address] Lymphocytes/100 WBC (Bld) 15.6 % Low 20.0-45.0 [facility] Comment on above: Performed By: #### 3 ####[facility] [place] [address].[address] MCH (RBC) [Entitic mass] 31.7 pg Normal 27.0-33.0 [facility] Comment on above: Performed By: #### 5 0103 ####[facility] [facility].[address] MCHC (RBC) [Mass/Vol] 34.3 g/dL Normal 32.0-35.0 [facility] Comment on above: Performed By: #### 5 0103 ####[facility] [facility].[address] MCV (RBC) [Entitic vol] 92.7 fL Normal 82.0-98.0 T [facility] Comment on above: Performed By: #### 5 0103 ####[facility] [facility].[address] Monocytes (Bld) [#/Vol] 0.9 10*3/uL Normal 0.1-1.0 [facility] Comment on above: Performed By: #### 5 0103 ####[facility] [facility].[address] MONOS 8.2 % Normal 5.0-12.0 [facility] Comment on above: Performed By: #### 5 0103 ####[facility] [facility].[address] Neutrophils/100 WBC (Bld) 71.0 % Normal 40.0-72.0 [facility] Comment on above: Performed By: #### 5 0103 ####[facility] Nucleated RBC/100 WBC (Bld) [Ratio] 0 % Normal 0-0 [facility] Comment on above: Performed By: #### 5 3 ####[facility] [facility].[address] PLAT CNT 301 10*3/uL Normal 150-400 [facility] Comment on above: Performed By: #### 5 0103 ####[facility] [facility] [place] [address], [facility] RBC (Bld) [#/Vol] 5.45 10*6/uL Normal 4.20-5.70 [facility] Comment on above: Performed By: #### 5 0103 ####[facility] [facility] [place] [address], [facility] WBC (Bld) [#/Vol] 11.22 10*3/uL High 4.00-10.60 [facility] Comment on above: Performed By: #### 5 0103 ####[facility] [place] [address], [facility] HIP RIGHT 1 OR 2 VWS WITH PE LVISon 03-14-2020 HIP RIGHT 1 OR 2 VWS WITH PELVIS [facility] Department of Radiology [address] [place] [address] Patient Name: LILIANA MICHAELS : [...] purposes Electronically signed: Aria Steinberg. Transcribed by: [email or web address], User Resident: Electronically Signed by: ARIA STEINBERG @ 03/14/2020 03:44 PM Normal [facility] Comment on above: Order Comment: RT TH A POC GLUCOSE LABon 03-14-2020 Glucose [Mass/Vol] 222 mg/dL High 70-100 [facility] Comment on above: Performed By: #### 8 5499 #### [facility] [address] [facility] [place] [address], [facility] Glucose [Mass/Vol] 217 mg/dL High 70-100 [facility] Comment on above: Performed By: #### 8 5499 ####[facility] [facility] [place] [address], [place] Glucose [Mass/Vol] 141 mg/dL High 70-100 [facility] Comment on above: Performed By: #### 8 5499 #### [facility] [address] [facility] [place] [address], [place] PORTABLE HIP RIGHT 1 OR 2 VW S WITH PELVISon 03-14-2020 PORTABLE HIP RIGHT 1 OR 2 VWS WITH PELVIS [facility] Department of Radiology [address] [place] [id number] Patient Name: LILIANA MICHAELS : 1965 Sex: [...] air Electronically signed: Aria Steinberg. Transcribed by: [email or web address], User Resident: Electronically Signed by: ARIA STEINBERG @ 03/14/2020 03:46 PM Normal [facility] Comment on above: Order Comment: Hardw are Evaluation, AP/Lateral TYPE AND SCREENon 03-14-2020 ABO INTERPRETATION O Normal [facility] Comment on above: Performed By: #### 6 2586 ####[facility] RH INTERPRETATION Positive Normal [facility] [facility] Comment on above: Performed By: #### [id number] ####[facility] Vital Signs Date Time Vital Sign Value Performing Clinician Facility 06-13-2024 09:07-0500 Body height 162.6 cm Valentino Ty MD Work Phone: [facility] 06-13-2024 09:07-0500 Body mass index (BMI) [Ratio] 36.39 kg/m2 Valentino Ty MD Work Phone: [facility] 06-13-2024 09:07-0500 Body weight 96.16 kg Valentino Ty MD Work Phone: [facility] 06-13-2024 09:07-0500 Diastolic blood pressure 74 mm[Hg] Valentino Ty MD Work Phone: [facility] 06-13-2024 09:07-0500 Heart rate 80 /min Valentino Ty MD Work Phone: [facility] 06-13-2024 09:07-0500 Systolic blood pressure 132 mm[Hg] Valentino Ty MD Work Phone: [facility] 06-06-2024 09:47-0500 Body height 162.6 cm Ishmael Simon MD Work Phone: [facility] 06-06-2024 09:47-0500 Body mass index (BMI) [Ratio] 36.56 kg/m2 Ishmael Simon MD Work Phone: [facility] 06-06-2024 09:47-0500 Body temperature 97.81 [degF] Ishmael Simon MD Work Phone: [facility] 06-06-2024 09:47-0500 Body weight 96.62 kg Ishmael Simon MD Work Phone: [facility] 06-06-2024 09:47-0500 Diastolic blood pressure 64 mm[Hg] Ishmael Simon MD Work Phone: [facility] 06-06-2024 09:47-0500 Heart rate 85 /min Ishmael Simon MD Work Phone: [facility] 06-06-2024 09:47-0500 Respiratory rate 22 /min Ishmael Simon MD Work Phone: [facility] 06-06-2024 09:47-0500 SaO2% (BldA) [Mass fraction] 92 % Ishmael Simon MD Work Phone: [facility] 06-06-2024 09:47-0500 Systolic blood pressure 132 mm[Hg] Ishmael Simon MD Work Phone: [facility] 05-23-2024 08:30-0500 Body height 162.6 cm Amador Son MD Work Phone: [facility] 05-23-2024 08:30-0500 Body mass index (BMI) [Ratio] 37.76 kg/m2 Amador Son MD Work Phone: [facility] 05-23-2024 08:30-0500 Body weight 99.79 kg Amador Son MD Work Phone: [facility] 05-23-2024 08:30-0500 Diastolic blood pressure 78 mm[Hg] Amador Son MD Work Phone: [facility] 05-23-2024 08:30-0500 Heart rate 74 /min Amador Son MD Work Phone: [facility] 05-23-2024 08:30-0500 Systolic blood pressure 118 mm[Hg] Amador Son MD Work Phone: [facility] 04-24-2024 11:05-0500 Body height 162.6 cm Ishmael Simon MD Work Phone: [facility] 04-24-2024 11:05-0500 Body mass index (BMI) [Ratio] 37.76 kg/m2 Ishmael Simon MD Work Phone: [facility] 04-24-2024 11:05-0500 Body temperature 97.81 [degF] Ishmael Simon MD Work Phone: [facility] 04-24-2024 11:05-0500 Body weight 99.79 kg Ishmael Simon MD Work Phone: [facility] 04-24-2024 11:05-0500 Diastolic blood pressure 68 mm[Hg] Ishmael Simon MD Work Phone: [facility] 04-24-2024 11:05-0500 Heart rate 88 /min Ishmael Simon MD Work Phone: [facility] 04-24-2024 11:05-0500 Respiratory rate 18 /min Ishmael Simon MD Work Phone: [facility] 04-24-2024 11:05-0500 SaO2% (BldA) [Mass fraction] 95 % Ishmael Simon MD Work Phone: [facility] 04-24-2024 11:05-0500 Systolic blood pressure 116 mm[Hg] Ishmael Simon MD Work Phone: [facility] 02-06-2024 13:14-0400 Body height 162.6 cm Ishmael Simon MD Work Phone: [facility] 02-06-2024 13:14-0400 Body mass index (BMI) [Ratio] 37.25 kg/m2 Ishmael Simon MD Work Phone: [facility] 02-06-2024 13:14-0400 Body temperature 97.5 [degF] Ishmael Simon MD Work Phone: [facility] 02-06-2024 13:14-0400 Body weight 98.43 kg Ishmael Simon MD Work Phone: [facility] 02-06-2024 13:14-0400 Diastolic blood pressure 72 mm[Hg] Ishmael Simon MD Work Phone: [facility] 02-06-2024 13:14-0400 Heart rate 84 /min Ishmael Simon MD Work Phone: [facility] 02-06-2024 13:14-0400 Respiratory rate 20 /min Ishmael Simon MD Work Phone: [facility] 02-06-2024 13:14-0400 SaO2% (BldA) [Mass fraction] 97 % Ishmael Simon MD Work Phone: [facility] 02-06-2024 13:14-0400 Systolic blood pressure 134 mm[Hg] Ishmael Simon MD Work Phone: [facility] 01-13-2024 09:29-0400 Body height 162.6 cm Ishmael Simon MD Work Phone: [facility] 01-13-2024 09:29-0400 Body mass index (BMI) [Ratio] 36.39 kg/m2 Ishmael Simon MD Work Phone: [facility] 01-13-2024 09:29-0400 Body temperature 97.5 [degF] Ishmael Simon MD Work Phone: [facility] 01-13-2024 09:29-0400 Body weight 96.16 kg Ishmael Simon MD Work Phone: [facility] 01-13-2024 09:29-0400 Diastolic blood pressure 70 mm[Hg] Ishmael Simon MD Work Phone: [facility] 01-13-2024 09:29-0400 Heart rate 91 /min Ishmael Simon MD Work Phone: [facility] 01-13-2024 09:29-0400 Respiratory rate 18 /min Ishmael Simon MD Work Phone: [facility] 01-13-2024 09:29-0400 SaO2% (BldA) [Mass fraction] 97 % Ishmael Simon MD Work Phone: [facility] 01-13-2024 09:29-0400 Systolic blood pressure 120 mm[Hg] Ishmael Simon MD Work Phone: [facility] 11-09-2023 10:10-0400 Body height 162.6 cm Naima GoldbergRowanCynthiarogelio [employer] Work Phone: [facility] 11-09-2023 10:10-0400 Body mass index (BMI) [Ratio] 35.27 kg/m2 Naimadaniel Goldberg-Cynthiaacomiguelina [employer] Work Phone: [facility] 11-09-2023 10:10-0400 Body weight 93.21 kg Naimadaniel Goldberg-Cynthiakassidymiguelina [employer] Work Phone: [facility] 11-09-2023 10:10-0400 Diastolic blood pressure 66 mm[Hg] Naima Goldberg-Cynthiarogelio [employer] Work Phone: [facility] 11-09-2023 10:10-0400 Heart rate 68 /min Naima Segurarogelio [employer] Work Phone: [facility] 11-09-2023 10:10-0400 Systolic blood pressure 98 mm[Hg] Naima Segurarogelio [employer] Work Phone: [facility] 08-10-2023 13:31-0400 Body height 162.6 cm Amador Son MD Work Phone: [facility] 08-10-2023 13:31-0400 Body mass index (BMI) [Ratio] 34.67 kg/m2 Amador Son MD Work Phone: [facility] 08-10-2023 13:31-0400 Body weight 91.63 kg Amador Son MD Work Phone: [facility] 08-10-2023 13:31-0400 Diastolic blood pressure 70 mm[Hg] Amador Son MD Work Phone: [facility] 08-10-2023 13:31-0400 Heart rate 69 /min Amador Son MD Work Phone: [facility] 08-10-2023 13:31-0400 Systolic blood pressure 116 mm[Hg] Amador Son MD Work Phone: [facility] 08-05-2023 17:30-0400 Diastolic blood pressure 67 mm[Hg] Amador Son MD Work Phone: [facility] 08-05-2023 17:30-0400 Heart rate 60 /min Amador Son MD Work Phone: [facility] 08-05-2023 17:30-0400 Respiratory rate 16 /min Amador Son MD Work Phone: [facility] 08-05-2023 17:30-0400 SaO2% (BldA) [Mass fraction] 96 % Amador Son MD Work Phone: [facility] 08-05-2023 17:30-0400 Systolic blood pressure 112 mm[Hg] Amador Son MD Work Phone: [facility] 08-05-2023 12:13-0400 Body height 162.6 cm Amador Son MD Work Phone: [facility] 08-05-2023 12:13-0400 Body mass index (BMI) [Ratio] 34.17 kg/m2 Amador Son MD Work Phone: [facility] 08-05-2023 12:13-0400 Body temperature 97.5 [degF] Amador Son MD Work Phone: [facility] 08-05-2023 12:13-0400 Body weight 90.3 kg Amador Son MD Work Phone: [facility] 07-22-2023 14:38-0400 Body height 162.6 cm Amador Son MD Work Phone: [facility] 07-22-2023 14:38-0400 Body mass index (BMI) [Ratio] 34.33 kg/m2 Amador Son MD Work Phone: [facility] 07-22-2023 14:38-0400 Body weight 90.72 kg Amador Son MD Work Phone: [facility] 07-22-2023 14:38-0400 Diastolic blood pressure 90 mm[Hg] Amador Son MD Work Phone: [facility] 07-22-2023 14:38-0400 Heart rate 41 /min Amador Son MD Work Phone: [facility] 07-22-2023 14:38-0400 Systolic blood pressure 138 mm[Hg] Amador Son MD Work Phone: [facility] 07-14-2022 10:57-0500 Body height 162.56 cm Ishmael A Naderer Work Phone: [facility] [place] [facility] [address] Work Phone: 07-14-2022 10:57-0500 Body mass index (BMI) [Ratio] 32.96 kg/m2 Ishmael A Naderer Work Phone: [facility] [address] DO Work Phone: 07-14-2022 10:57-0500 Body surface area Derived from formula 1.92 m2 Ishmael A Naderer Work Phone: [facility] [employer] [place] [facility] [place] Work Phone: 07-14-2022 10:57-0500 Body weight 87.09 kg Ishamel A Naderer Work Phone: [facility] [employer] 600 DO Work Phone: 07-14-2022 10:57-0500 Diastolic blood pressure 64 mm[Hg] Ishmael A Naderer Work Phone: [facility] [employer] 600 DO Work Phone: 07-14-2022 10:57-0500 Heart rate 34 /min Ishmael A Naderer Work Phone: [facility] [employer] [facility] [address] DO Work Phone: 07-14-2022 10:57-0500 Systolic blood pressure 118 mm[Hg] Ishmael A Naderer Work Phone: [facility] [employer] [facility] [address] DO Work Phone: 01-28-2022 09:37-0400 Body height 162.56 cm Ishmael A Naderer Work Phone: [facility] [facility] [address] DO Work Phone: 01-28-2022 09:37-0400 Body mass index (BMI) [Ratio] 30.9 kg/m2 Ishmael A Naderer Work Phone: [facility] [employer] [place] [address] DO Work Phone: 01-28-2022 09:37-0400 Body surface area Derived from formula 1.87 m2 Ishmael A Naderer Work Phone: [facility] [employer] 600 DO Work Phone: 01-28-2022 09:37-0400 Body weight 81.65 kg Ishmael A Naderer Work Phone: [facility] [address] DO Work Phone: 01-28-2022 09:37-0400 Diastolic blood pressure 50 mm[Hg] Ishmael A Naderer Work Phone: [facility] [employer] [facility] [address] DO Work Phone: 01-28-2022 09:37-0400 Heart rate 41 /min Ishmael A Naderer Work Phone: [facility] [facility] [address] DO Work Phone: 01-28-2022 09:37-0400 Systolic blood pressure 112 mm[Hg] Ishmael A Naderer Work Phone: [facility] [employer] 600 DO Work Phone: Encounters Encounter Date Encounter Type Care Provider Facility Start: 06-13-2024 End: 06-13-2024 Office outpatient visit 25 minutes Valentino Ty MD Work Phone: [facility] Comment on above: Sick sinus syndrome (Multi) (Primary Dx); Chronotropic incompetence; Peripheral vascular disease, unspecified (CMS-HCC); Pacemaker; Essential hypertension, benign; Sinus bradycardia; Hyperlipidemia, unspecified hyperlipidemia type; Dyspnea on exertion; BMI 37.0-37.9, adult; Former smoker; Mild coronary artery disease Start: 06-06-2024 End: 06-06-2024 Bamboo flowsheet Ishmael Simon MD Work Phone: [facility] Start: 06-06-2024 End: 06-06-2024 Bamdavid flowsheet Ishmael Simon MD Work Phone: [facility] Start: 06-06-2024 End: 06-06-2024 Office outpatient visit 15 minutes Ishmael Simon MD Work Phone: [facility] Comment on above: Chronic obstructive pulmonary disease with acute exacerbation (CMS/HCC) (Primary Dx); Chronic hypoxic respiratory failure (CMS/HCC); Class 2 severe obesity due to excess calories with serious comorbidity and body mass index (BMI) of 36.0 to 36.9 in adult (CMS/HCC); Essential hypertension, benign (CMS/HCC) Start: 06-06-2024 End: 06-06-2024 ambulatory ISHMAEL SIMON Not Available Start: 05-29-2024 End: 05-29-2024 Refill Ishmael Simon MD Work Phone: [facility] Comment on above: Degeneration of lumb ar intervertebral disc Start: 05-28-2024 End: 05-28-2024 Refill Mary Cade MA [facility] Comment on above: Degeneration of lumb ar intervertebral disc Start: 05-27-2024 End: 05-29-2024 Clinisync Result Encounter Generic External Data Provider [facility] External Department Unsolicited Start: 05-27-2024 End: 05-29-2024 Clinisync Result Encounter Generic External Data Provider [facility] External Department Unsolicited Start: 05-23-2024 End: 05-23-2024 Office outpatient visit 25 minutes Amador Son MD Work Phone: [facility] Comment on above: Cardiac pacemaker in situ (Primary Dx); Sick sinus syndrome (Multi); MRI safe cardiac pacemaker in situ; Abnormal EKG; Chronotropic incompetence; Sinoatrial node dysfunction (Multi); Sinus bradycardia; Current smoker; BMI 37.0-37.9, adult Start: 05-23-2024 End: 05-23-2024 Subsequent hospital visit by physician [facility] Comment on above: Sinus bradycardia; Sick sinus syndrome (Multi); Chronotropic incompetence; MRI safe cardiac pacemaker in situ Start: 05-23-2024 End: 05-23-2024 ambulatory AMADOR SON [facility] Start: 04-27-2024 End: 04-27-2024 Refill Ishmael Simon MD Work Phone: [facility] Comment on above: Degeneration of lumb ar intervertebral disc Start: 04-24-2024 End: 04-24-2024 Bamboo flowsheet Ishamel Simon MD Work Phone: [facility] Start: 04-24-2024 End: 04-24-2024 Bamboo flowsheet Ishmael Simon MD Work Phone: [facility] Start: 04-24-2024 End: 04-24-2024 Clinisync Result Encounter Ishmael Simon MD Work Phone: [facility] External Department Unsolicited Start: 04-24-2024 End: 04-24-2024 Patient encounter procedure Ishmael Simon MD Work Phone: [facility] Healthcare Work Phone: Start: 04-24-2024 End: 04-24-2024 Postop follow up visit related to original px Ishmael Simon MD Work Phone: [facility] Comment on above: Medicare annual well ness visit, subsequent (Primary Dx); Type 2 diabetes mellitus with hyperglycemia, without long-term current use of insulin (CMS/HCC); Essential hypertension, benign (CMS/HCC); Class 2 severe obesity due to excess calories with serious comorbidity and body mass index (BMI) of 37.0 to 37.9 in adult ([facility]) Start: 04-24-2024 End: 04-24-2024 ambulatory ISHMAEL SIMON Not Available Start: 04-16-2024 End: 04-16-2024 ambulatory Jong Reyes MD Facility:[facility] Start: 03-30-2024 End: 03-30-2024 Refill Ishmael Simon MD Work Phone: [facility] Comment on above: Degeneration of lumb ar intervertebral disc Start: 03-27-2024 End: 03-27-2024 Patient encounter procedure Ismhael Simon MD Work Phone: [facility] [place] Work Phone: Start: 03-27-2024 End: 03-27-2024 ambulatory Ishmael Simon MD Work Phone: [facility] Work Phone: Start: 03-16-2024 End: 03-16-2024 ambulatory Danielle Bergeron Facility:[facility] Start: 03-16-2024 Non-patient / Non-visit [facility] Start: 03-01-2024 End: 03-01-2024 Refill Ishmael Simon MD Work Phone: [facility] Comment on above: Degeneration of lumb ar intervertebral disc Start: 02-14-2024 End: 02-14-2024 ambulatory [facility] Start: 02-14-2024 End: 02-14-2024 Subsequent hospital visit by physician Varsha [facility] Comment on above: Cardiac pacemaker in situ; Sinoatrial node dysfunction (Multi) Start: 02-06-2024 End: 02-06-2024 Bamboo flowsheet Ishmael Simon MD Work Phone: [facility] Start: 02-06-2024 End: 02-06-2024 Bamboo flowsheet Ishmael Simon MD Work Phone: [facility] Start: 02-06-2024 End: 02-06-2024 Clinisync Result Encounter Ishmael Simon MD Work Phone: [facility] [employer] External Department Unsolicited Start: 02-06-2024 End: 02-06-2024 ambulatory ISHMAEL SIMON Not Available Start: 02-06-2024 End: 02-06-2024 Office outpatient visit 15 minutes Ishmael Simon MD Work Phone: [facility] [facility] Comment on above: Dysuria (Primary Dx) ; Acute prostatitis; Pyuria Start: 02-02-2024 End: 02-03-2024 Refill Ishmael Simon MD Work Phone: [facility] Comment on above: Other intervertebral disc degeneration, lumbar region; Degeneration of lumbar or lumbosacral intervertebral disc Start: 01-27-2024 End: 01-27-2024 Refill Ishmael Simon MD Work Phone: [facility] Comment on above: Degeneration of lumb ar intervertebral disc Start: 01-25-2024 End: 01-25-2024 ambulatory [facility] Start: 01-25-2024 End: 01-25-2024 Subsequent hospital visit by physician Varsha [facility] Comment on above: Cardiac pacemaker in situ; Sinoatrial node dysfunction (Multi) Start: 01-13-2024 End: 01-13-2024 Bamboo flowsheet Ishmael Simon MD Work Phone: [facility] Start: 01-13-2024 End: 01-13-2024 Bamboo flowsheet Ishmael Siomn MD Work Phone: [facility] Start: [...] 12-30-2023 Refill Ishmael Simon MD Work Phone: [facility] Comment on above: Degeneration of lumb ar intervertebral disc Start: 12-01-2023 End: 12-01-2023 ambulatory [facility] Ambulatory Start: 11-09-2023 End: 11-09-2023 Office outpatient visit 40 minutes Naima Wright APRN[employer] Work Phone: [facility] Comment on above: MRI safe cardiac pac [...] by physician [facility] Comment on above: Pacemaker Start: 11-09-2023 End: 11-09-2023 ambulatory NAIMA WRIGHT [facility] Start: 10-10-2023 End: 10-10-2023 ambulatory ISHMAEL SIMON Not Available Start: 09-26-2023 End: 09-26-2023 ambulatory [facility] Start: 09-26-2023 End: 09-26-2023 Subsequent hospital visit by physician [facility] Comment on above: Cardiac pacemaker in situ; Sinoatrial node dysfunction (Multi) Start: 08-12-2023 End: 08-12-[address] [facility] Start: 08-10-2023 End: 08-10-2023 Subsequent hospital visit by physician Varsha Chapa [facility] Comment on above: Localized swelling o n left hand; S/P placement of cardiac pacemaker Start: 08-10-2023 End: 08-10-2023 ambulatory [facility] Start: 08-10-2023 End: 08-10-2023 Office outpatient visit 25 minutes Amador Son MD Work Phone: [facility] Comment on above: Chronotropic incompe tence (Primary [...] Dyspnea; Pacemaker Start: 07-22-2023 End: 07-22-2023 ambulatory [facility] Ambulatory Start: 07-22-2023 End: 07-22-2023 Encounter for preprocedural cardiovascular examination [facility] Ambulatory Start: 07-22-2023 End: 07-22-2023 Office outpatient new 60 minutes Amador Son MD Work Phone: [facility] Comment on above: Chronotropic incompe tence (Primary Dx); Sinus bradycardia; Establishing care with new doctor, encounter for; BMI 34.0-34.9,adult; Sick sinus syndrome (CMS/HCC); Simple chronic bronchitis (CMS/HCC); Current smoker; Other fatigue; Preoperative cardiovascular examination Start: 07-22-2023 End: 07-22-2023 Patient encounter status Amador Son MD Work Phone: [facility] Work Phone: Start: 07-13-2023 End: 07-13-2023 ambulatory [facility] Ambulatory Start: 07-13-2023 End: 07-13-2023 ambulatory [facility]ulatory Start: 10-14-2022 ambulatory NARENDRANATH [...] sit 15 minutes Ishmael Simon Work Phone: [facility] 600 DO Work Phone: Start: 07-14-2022 ambulatory [...] Facility:[id number] Start: 01-28-[address] Ishmael Simon Facility:[id number] Start: 01-28-2022 Office consultation new/estab patient 60 min Ishmael Simon Work Phone: [facility] 600 DO Work Phone: Start: 01-14-2022 End: 01-15-2022 ambulatory YOLA COLMENARES . Facility: Start: 01-01-2022 End: 01-02-[address] ISHMAEL SIMON Facility:[facility] Start: 12-15-2021 End: 12-15-[address] RICKY IBARRA . Facility:[facility] Start: 12-14-2021 Encounter for preprocedural laboratory examination DR RICKY IBARRA . [facility] Start: 12-12-2021 End: 12-13-[address] ISHMAEL SIMON Facility:[facility] Start: 12-12-2021 End: 12-13-2021 Encounter for preprocedural laboratory examination DR ISHMAEL SIMON Facility:[facility] Start: 12-08-2021 End: 12-08-[address] RICKY IBARRA . Facility: Start: 12-04-2021 End: 12-05-[address] ISHMAEL SIMON Facility: Start: 11-19-2021 End: 11-20-2021 ambulatory YOLA COLMENARES . Facility: Start: 11-03-2021 End: 11-03-[address] RICKY IBARRA . Facility: Start: 10-22-2021 End: 10-23-[address] RICKY IBARRA . Facility:[facility] Start: 10-13-2021 End: 10-13-[address] RICKY IBARRA . Facility: Start: 10-01-2021 End: 10-02-2021 ambulatory YOLA COLMENARES . Facility: Start: 10-01-2021 End: 10-02-2021 ambulatory YOLA COLMENARES . Facility: Start: 10-03-2020 End: 10-04-2020 ambulatory SIMONE RUIZ Facility:[facility] Start: 03-26-2020 End: 04-10-2020 ambulatory JEY ELISE Facility:[facility] Start: 03-14-2020 End: 03-15-2020 ambulatory JEY ELISE Facility:[facility] Procedures Date Procedure Procedure Detail Performing Clinician Start: 05-27-2024 Epithelial cells LM Ql (Urine sed) Generic External Data Provider Start: 05-27-2024 GRAM STAIN EVALUATION G eneric External Data Provider Start: 05-27-2024 Leukocytes [#/volume ] in Blood Generic External Data Provider Start: 05-27-2024 LOWER RESPIRATORY CULTURE Generic External Data Provider Start: 05-27-2024 RESULT 1 Generic Ex ternal Data Provider Start: 05-27-2024 RESULT 2 Generic Ex ternal Data Provider Start: 05-27-2024 RESULT 3 Generic Ex ternal Data Provider Start: 05-27-2024 RESULT 4 Generic Ex ternal Data Provider Start: 05-23-2024 Ecg routine ecg w/le ast 12 lds w/i&r Amador Son MD Work Phone: Start: 05-23-2024 Program eval implant able in persn dual ld pacer Naima Wright [employer] Work Phone: Start: 04-24-2024 MLR HEMOGLOBIN A1C Ishmael Simon MD Work Phone: Start: 03-27-2024 MR lumbar spine wo con Ishmael Simon MD Work Phone: Start: 03-27-2024 XR pre/post mri xray Robert Siomn MD Work Phone: Start: 02-14-2024 Rem interrog pm/ldls pm/ids <90 d tech review Amador Son MD Work Phone: Start: 02-06-2024 TBH UA (CLEAN/CATCH) MICROSCOPIC IF INDICATE Ishmael Simon MD Work Phone: Start: 11-09-2023 Ecg routine ecg w/le ast 12 lds w/i&r Naima Wright [employer] Work Phone: Start: 11-09-2023 Program eval implant able in persn dual ld pacer Ana M Kumari [employer] Work Phone: Start: 09-26-2023 CARDIAC DEVICE CHECK - REMOTE NAIMA WRIGHT Start: 09-26-2023 CARDIAC DEVICE CHECK - REMOTE Amador Son MD Work Phone: Start: 08-10-2023 VASC US UPPER EXTREM ITY VENOUS DUPLEX LEFT NAIMA WRIGHT Start: 08-10-2023 Dup-scan xtr veins unilateral/limited study Naima Priest Adriana [employer] Work Phone: Start: 08-05-2023 Radiologic exam ches t single view Ana M Echo [employer] Work Phone: Start: 08-05-2023 Ecg routine ecg w/le ast 12 lds trcg only w/o i&r Ana M Kumari [employer] Work Phone: Start: 08-05-2023 Electrophysiology study Amdaor Son MD Work Phone: Start: 08-05-2023 Echo tthrc r-t 2d w/ wom-mode compl spec&colr d Ana M Angel [employer] Work Phone: Start: 08-05-2023 Ecg routine ecg w/le ast 12 lds trcg only w/o i&r Ana M Angel [employer] Work Phone: Start: 08-05-2023 Basic metabolic pane l calcium total Ana M Angel [employer] Work Phone: Start: 07-22-2023 CASE REQUEST EP LAB MINDI RHAF TRABOULSSI Start: 07-22-2023 AMB REFERRAL TO [facility] ELECTROPHYSIOLOGY MOURHAF TRABOULSSI Start: 07-22-2023 ECG 12-LEAD MOURHAF TR ABOULSSI Start: 07-22-2023 Ecg routine ecg w/le ast 12 lds w/i&r Amador Son MD Work Phone: Start: 07-13-2023 HOLTER OR EVENT CARD IAC MONITOR MOURHAF TRABOULSSI Start: 07-13-2023 ECG 12-LEAD MOURHAF TR ABOULSSI Start: 05-07-[address] ISHMAEL CROUCH Comment on above: Performed By: #### V BRENDAN, PSASC #### [facility] [address] [address] [address] Britt Mendoza Start: 03-15-2020 ANESTH HIP ARTHROPLASTY SIMONE RUIZ Start: 03-15-2020 TOTAL HIP ARTHROPLASTY JEY ELISE Start: 03-14-2020 Antibody screen SIMONE BOLIVAR Comment on above: Performed By: #### 6 [id number] ####[address] Start: 08-24-2019 Colonoscopy Ishmael faith MD Work Phone: Colonoscopy Ishmael Carterr Work Phone: Excision of cyst Ishmael Cazares rer Work Phone: Hernia repair Ishmael Coronaerer Work Phone: Operation on urinary system Ishmael Simon Work Phone: Surgical repair of u pper extremity Ishmael Rae Naderer Work Phone: Total replacement of hip Mar praveena Rae Naderer Work Phone: Plan of Treatment Date Care Activity Detail Author Start: 08-23-2029 Screening for malignant neoplasm of colon [facility] Start: 04-16-2026 Glaucoma screening Diabetes: Retinopathy Screening [facility] Start: 05-15-2025 End: 05-15-2025 Patient encounter procedure 05/15/2025 8:40 AM EST Office Visit [address] [place] [address] Valentino Ty MD [address]03 [facility] 2, [address] [place] [address] [facility] Start: 04-24-2025 Medicare Annual Wellness (AWV) Medicare Annual Wellness (AWV) [facility] Start: 11-28-2024 End: 11-28-2024 Patient encounter procedure [facility] Start: 11-21-2024 End: 11-21-2024 Patient encounter procedure 11/21/2024 8:00 AM EDT Appointment [facility] [address] [place] [address] [facility] Start: 08-04-2024 Creatinine measurement Creatinine Level [facility] Start: 08-04-2024 Echocardiography Echocardiogram [facility] Start: 08-04-2024 Potassium measurement Potassium Level [facility] Start: 07-23-2024 End: 07-23-2024 Patient encounter procedure 07/23/2024 10:15 AM EDT Office Visit [facility] [address] [place] [address] Ishmael Simon MD [address] [place] [address] [facility] Start: 06-13-2024 End: 06-13-2025 Alanine aminotransferase [Enzymatic activity/volume] in Serum or Plasma by With P-5'-P Alanine Aminotransferase Lab Routine Hyperlipidemia, unspecified hyperlipidemia type Expected: 06/13/2024 (Approximate), Expires: 06/13/2025 [facility] Service Area Work Phone: Comment on above: Expected: 06/13/2024 (Approximate), Expi res: 06/13/2025 Start: 06-13-2024 End: 06-13-2025 Aspartate aminotransferase [Enzymatic activity/volume] in Serum or Plasma by With P-5'-P Aspartate Aminotransferase Lab Routine Hyperlipidemia, unspecified hyperlipidemia type Expected: 06/13/2024 (Approximate), Expires: 06/13/2025 [facility] Work Phone: Comment on above: Expected: 06/13/2024 (Approximate), Expi res: 06/13/2025 Start: 06-13-2024 End: 06-13-2025 Basic metabolic 2000 panel - Serum or Plasma Basic Metabolic Panel Lab Routine Essential hypertension, benign Expected: 06/13/2024 (Approximate), Expires: 06/13/2025 [facility] Work Phone: Comment on above: Expected: 06/13/2024 (Approximate), Expi res: 06/13/2025 Start: 06-13-2024 End: 06-13-2025 Lipid 1996 panel - Serum or Plasma Lipid Panel Lab Routine Hyperlipidemia, unspecified hyperlipidemia type Expected: 06/13/2024 (Approximate), Expires: 06/13/2025 [facility] Work Phone: Comment on above: Expected: 06/13/2024 (Approximate), Expi res: 06/13/2025 Start: 06-13-2024 End: 06-13-2024 Patient encounter procedure 06/13/2024 9:10 AM EST Office Visit [place] [address] [place] [address] Valentino Ty MD 703 [facility] 2, [address] [place] [address] [facility] Start: 06-06-2024 End: 06-06-2024 Patient encounter procedure 06/06/2024 9:45 AM EST Office Visit [facility] [address] [place] [address] Ishmael Simon MD [address] [place] [phone] Arrived [facility] Comment on above: Arrived Start: 06-04-2024 End: 06-04-2024 Patient encounter procedure 06/04/2024 9:30 AM EST Office Visit [facility] [address] [place] [address] Ishmael Simon MD [address] [place] [address] [facility] Start: 05-25-2024 Urine screening for protein Diabetes: Urine Protein Screening [facility] Start: 05-23-2024 End: 05-23-2024 Patient encounter procedure [facility] Start: 05-17-2024 Glaucoma screening Diabetes: Retinopathy Screening [facility] Start: 05-11-2024 End: 11-08-2024 Cardiac Device Check - In Clinic Cardiac Device Check - In Clinic Implantable Cardiac Device Routine Sinus bradycardia Sick sinus syndrome (Multi) Chronotropic incompetence MRI safe cardiac pacemaker in situ Expected: 05/11/2024 (Approximate), Expires: 11/08/2024 [facility] Service Area Work Phone: Comment on above: Expected: 05/11/2024 (Approximate), Expi res: 11/08/2024 Start: 04-24-2024 End: 04-24-2025 Hemoglobin A1c/Hemoglobin.total in Blood Hemoglobin A1c Lab Routine Type 2 diabetes mellitus with hyperglycemia, without long-term current use of insulin ([facility]) Expected: 04/24/2024 (Approximate), Expires: 04/24/2025 [facility] Work Phone: Comment on above: Expected: 04/24/2024 (Approximate), Expi res: 04/24/2025 Start: 04-24-2024 End: 04-24-2024 Patient encounter procedure [facility] Comment on above: Arrived Start: 04-10-2024 Hemoglobin A1c measurement Diabetes: Hemoglobin A1C [facility] Start: 2024 RSV High Risk: (Elderly (60+) or Population) (1 - Risk 60-74 years 1-dose series) RSV High Risk: (Elderly (60+) or Population) (1 - Risk 60-74 years 1-dose series) [facility] Start: 02-06-2024 End: 02-05-2025 Bacteria identified in Urine by Culture Urine culture (clean catch) Microbiology Routine Dysuria Expected: 02/06/2024 (Approximate), Expires: 02/05/2025 [facility] Work Phone: Comment on above: Expected: 02/06/2024 (Approximate), Expi res: 02/05/2025 Start: 02-06-2024 End: 02-05-2025 Chlamydia trachomatis and Neisseria gonorrhoeae DNA [Identifier] in Unspecified specimen by KATT with probe detection Chlamydia DNA probe, direct Microbiology Routine Acute prostatitis Pyuria Expected: 02/06/2024 (Approximate), Expires: 02/05/2025 [facility] Comment on above: Expected: 02/06/2024 (Approximate), Expi res: 02/05/2025 Start: 02-06-2024 End: 02-05-2025 Neisseria gonorrhoeae DNA assay Gonococcus DNA, PCR Microbiology Routine Dysuria Acute prostatitis Pyuria Expected: 02/06/2024 (Approximate), Expires: 02/05/2025 [facility] Comment on above: Expected: 02/06/2024 (Approximate), Expi res: 02/05/2025 Start: 02-06-2024 End: 02-05-2025 Urinalysis complete panel - Urine Urinalysis with reflex microscopic (clean catch) Lab Routine Dysuria Expected: 02/06/2024 (Approximate), Expires: 02/05/2025 [facility] Comment on above: Expected: 02/06/2024 (Approximate), Expi res: 02/05/2025 Start: 01-13-2024 End: 01-13-2024 Patient encounter procedure [facility] Comment on above: Arrived Start: 01-08-2024 COVID-19 Vaccine ( season) COVID-19 Vaccine ( season) [facility] Start: 01-08-2024 COVID-19 Vaccine ( season) COVID-19 Vaccine ( season) [facility] Start: 01-08-2024 Influenza vaccination [facility] Start: 11-21-2023 End: 11-21-2023 Patient encounter procedure 11/21/2023 8:50 AM EDT Office Visit [facility] [address] [facility] [address] [place] [address] Valentino Ty MD 703 [facility] 2, [address] [place] [address] [facility] Start: 11-09-2023 End: 08-04-2024 Cardiac Device Check - In Clinic [facility] Service Area Work Phone: Comment on above: Expected: 11/09/2023 (Approximate), Expi res: 08/04/2024 Start: 11-09-2023 End: 03-29-2025 XR Chest 2 Views [facility] Work Phone: Comment on above: Expected: 11/09/2023, Expires: Once for 1 Occurrenc es starting 11/09/2023 until 11/09/2023 Start: 11-09-2023 End: 11-09-2023 Patient encounter procedure [facility] Start: 11-03-2023 End: 11-03-2023 Patient encounter procedure 11/03/2023 8:50 AM EDT Office Visit [place] [address] [place] [address] Valentino Ty MD 703 [facility] 2, [address] [place] [address] [facility] Start: 08-12-2023 End: 08-12-2023 Clinical Support 08/12/2023 8:30 AM EDT Clinical Support [facility] [address] [place] [address] [facility] Start: 08-10-2023 Subsequent hospital visit by physician 08/10/2023 2:09 PM EDT Hospital Encounter [facility] [address] [place] [id number] Localized swelling on left hand; S/P placement of cardiac pacemaker [facility] Comment on above: Localized swelling on left hand; S/P placement of cardiac pacemaker Start: 07-22-2023 End: 07-21-2025 US Heart Transthoracic Transthoracic Echo Complete Echocardiography Routine Sinus bradycardia Chronotropic incompetence Sick sinus syndrome (CMS/HCC) Other fatigue Preoperative cardiovascular examination Expected: 07/22/2023 (Approximate), Expires: 07/21/2025 [facility] Work Phone: Comment on above: Expected: 07/22/2023 (Approximate), Expi res: 07/21/2025 Start: 07-13-2023 FUV, Provider: Valentino Ty, Status: Pen, Time: 8:30 AM FUV, Provider: Valentino Ty, Status: Pen, Time: 8:30 AM [facility] 600 DO Work Phone: Start: 01-07-2023 COVID-19 Vaccine ( season) COVID-19 Vaccine ( season) [facility] Start: 01-07-2023 Influenza vaccination Influenza Vaccine (#1) [facility] Start: 07-14-2022 FUV, Provider: Valentino Ty, Status: Pen, Time: 10:40 AM FUV, Provider: Valentino Ty, Status: Pen, Time: 10:40 AM [facility] 600 DO Work Phone: Start: 02-15-2022 STRESS JUICE, Provider: CARLITO HHVI NUCLEAR 01,[id number], Status: Pen, Time: 2:00 PM STRESS JUICE, Provider: CARLITO HHVI NUCLEAR 01,[id number], Status: Pen, Time: 2:00 PM [facility] 600 DO Work Phone: Start: 02-21-2014 Zoster Vaccines (1 of 2) Zoster Vaccines (1 of 2) [facility] Start: 02-21-1986 DTaP/Tdap/Td Vaccines (1 - Tdap) DTaP/Tdap/Td Vaccines (1 - Tdap) [facility] Start: 02-21-1983 Hepatitis B Vaccines (1 of 3 - 19+ 3-dose series) Hepatitis B Vaccines (1 of 3 - 19+ 3-dose series) [facility] Start: 02-21-1983 Pneumococcal vaccination Pneumococcal Vaccine (1 of 2 - PCV) [facility] Start: 02-21-1983 Urine screening for protein Diabetes: Urine Protein Screening [facility] Start: 02-21-1982 Diabetes mellitus screening Diabetes Screening [facility] Start: 02-21-1982 Hepatitis C screening Hepatitis C Screening [facility] Start: 02-21-1974 Diabetic foot examination Diabetes: Foot Exam [facility] Start: 02-21-1974 Glaucoma screening Diabetes: Retinopathy Screening [facility] Start: 02-21-1970 Pneumococcal Vaccine: Pediatrics (0 to 5 Years) and At-Risk Patients (6 to 64 Years) (1 - PCV) Pneumococcal Vaccine: Pediatrics (0 to 5 Years) and At-Risk Patients (6 to 64 Years) (1 - PCV) [facility] Start: 02-21-1970 Pneumococcal Vaccine: Pediatrics (0 to 5 Years) and At-Risk Patients (6 to 64 Years) (1 of 2 - PCV) Pneumococcal Vaccine: Pediatrics (0 to 5 Years) and At-Risk Patients (6 to 64 Years) (1 of 2 - PCV) [facility] Start: 02-21-1965 MMR Vaccines (1 of 1 - Standard series) MMR Vaccines (1 of 1 - Standard series) [facility] Start: 1964 COVID-19 Vaccine (#1) COVID-19 Vaccine (#1) [facility] Start: 1964 Annual wellness visit Welcome to Medicare Visit [facility] Start: 1964 Creatinine measurement Creatinine Level [facility] Start: 1964 Echocardiography Echocardiogram [facility] Start: 1964 Hemoglobin A1c measurement Diabetes: Hemoglobin A1C [facility] Start: 1964 Hepatitis B Vaccines (1 of 3 - 3-dose series) Hepatitis B Vaccines (1 of 3 - 3-dose series) [facility] Start: 1964 HIV screening HIV Screening [facility] Start: 1964 Lipid panel Lipid Panel [facility] Start: 1964 Medicare Annual Wellness (AWV) Medicare Annual Wellness (AWV) [facility] Start: 1964 Medicare Annual Wellness Visit Medicare Annual Wellness Visit (AWV) [facility] Start: 1964 Potassium measurement Potassium Level [facility] Start: 1964 Screening for malignant neoplasm of colon [facility] Start: 1964 Urine screening for protein Diabetes: Urine Protein Screening [facility] End: 07-21-2024 Basic metabolic 2000 panel - Serum or Plasma Basic Metabolic Panel Lab Routine Sinus bradycardia Chronotropic incompetence Sick sinus syndrome (CMS/HCC) Other fatigue 1 Occurrences starting 07/22/2023 until 07/21/2024 [facility] Work Phone: Comment on above: 1 Occurrences starting 07/22/2023 until 07/21/2024 End: 11-20-2025 Cardiac Device Check - In Clinic Cardiac Device Check - In Clinic Implantable Cardiac Device Routine Cardiac pacemaker in situ 1 Occurrences starting 05/23/2024 until 11/20/2025 [facility] Work Phone: Comment on above: 1 Occurrences starting 05/23/2024 until 11/20/2025 End: 01-25-2024 Cardiac Device Check - Remote [facility] Work Phone: Comment on above: Once for 1 Occurrences starting 01/25/20 24 until 01/25/2024 End: 11-20-2024 Cardiac Device Check - Remote Cardiac Device Check - Remote Implantable Cardiac Device Routine Cardiac pacemaker in situ 52 Occurrences starting 05/23/2024 until 11/20/2024 [facility] Work Phone: Comment on above: 52 Occurrences starting 05/23/2024 until 11/20/2024 End: 07-21-2024 CBC panel - Blood by Automated count CBC Lab Routine Sinus bradycardia Chronotropic incompetence Sick sinus syndrome (CMS/HCC) Other fatigue 1 Occurrences starting 07/22/2023 until 07/21/2024 [facility] Work Phone: Comment on above: 1 Occurrences starting 07/22/2023 until 07/21/2024 ECG 12 lead (Clinic Performed) ECG 12 lead (Clinic Performed) ECG Routine Sinus bradycardia 11/09/2023 10:38 AM EDT [facility] Work Phone: ECG 12 lead STAT ECG 12 lead STA T ECG STAT 08/05/2023 12:30 PM EDT [facility] Work Phone: ECG 12 lead STAT ECG 12 lead STA T ECG STAT 08/05/2023 5:12 PM EDT [facility] Work Phone: LOWER RESPIRATORY CULTURE LOWER RESPIRATORY CULTURE Lab Routine 05/27/2024 6:00 PM EST [facility] PPM IMPLANT DC PPM IMPLANT DC S inus bradycardia Chronotropic incompetence Sick sinus syndrome (CMS/HCC) Other fatigue [facility] Work Phone: End: 07-21-2024 Prothrombin time (PT) Protime-INR Lab Routine Sinus bradycardia Chronotropic incompetence Sick sinus syndrome (CMS/HCC) Other fatigue 1 Occurrences starting 07/22/2023 until 07/21/2024 [facility] Service Area Work Phone: Comment on above: 1 Occurrences starting 07/22/2023 until 07/21/2024 Payers Date Payer Category Payer Self-pay 2023 Medicare [id number] 2023 Medicare (Managed Care) 1.2. [id number] 2023 Private Health Insurance [id number] 2023 Private Health Insurance 1965 Unknown [id number] 2.840.1.694396.3.579.2.647 1964 Unknown [id number] 2..840.1.039740.3.579.2.647 1964 Unknown [id number] 2..840.1.379696.3.579.2.647 1964 Unknown [id number] 2.840.1.726975.3.579.2.1068 1964 Unknown [id number] 2.840.1.058268.3.579.2.356 1964 Unknown [id number] 2.840.1.041817.3.579.2.356 1964 Unknown [id number] 2.16.840.1.365863.3.579.2.593 1964 Unknown [id number] 2.840.1.067272.3.579.2.593 1964 Unknown [id number] 2.840.1.801024.3.579.2.593 1964 Unknown [id number] 2.16.840.1.252068.3.579.2.593 1964 Unknown [id number] 2.16.840.1.540167.3.579.2.593 1964 Unknown [id number] 2.16.840.1.993521.3.579.2.593 1964 Unknown [id number] 2.16.840.1.628222.3.579.2.593 1964 Unknown [id number] 2.16.840.1.093625.3.579.2.593 1964 Unknown [id number] 2.16.840.1.479757.3.579.2.593 1964 Unknown [id number] 2.16.840.1.713396.3.579.2.593 1964 Unknown [id number] 2.16.840.1.610065.3.579.2.593 1964 Unknown [id number] 2.16.840.1.590761.3.579.2.593 1964 Unknown [id number] 2.16.840.1.437142.3.579.2.593 1964 Unknown [id number] 2.16.840.1.047471.3.579.2.593 1964 Unknown [id number] 2.16.840.1.098094.3.579.2.593 1964 Unknown [id number] 2.16.840.1.141036.3.579.2.593 1964 Unknown [id number] 2.16.840.1.885923.3.579.2.593 1964 Unknown [id number] 2.16.840.1.410669.3.579.2.593 1964 Unknown [id number] 2.16.840.1.034442.3.579.2.593 1964 Unknown [id number] 2.16.840.1.173842.3.579.2.593 1964 Unknown [id number] 2.16.840.1.341714.3.579.2.593 1964 Unknown [id number] 2.16.840.1.304586.3.579.2.593 1964 Unknown [id number] 2.16.840.1.632759.3.579.2.593 1964 Unknown [id number] 2.16.840.1.874504.3.579.2.593 1964 Unknown [id number] 2.16.840.1.602636.3.579.2.196 1964 Unknown [id number] 2.16.840.1.438887.3.579.2.1244 1964 Unknown [id number] 2.16.840.1.492077.3.579.2.1244 1964 Unknown [id number] 2.16.840.1.373897.3.579.2.1244 1964 Unknown [id number] 2.16.840.1.981087.3.579.2.1244 1964 Unknown [id number] 2.16.840.1.430986.3.579.2.1244 1964 Unknown [id number] 2.16.840.1.042917.3.579.2.1244 1964 Unknown [id number] 2.16.840.1.432880.3.579.2.1244 1964 Unknown [id number] 2.16.840.1.922260.3.579.2.1244 1964 Unknown [id number] 2.16.840.1.904740.3.579.2.1246 1964 Unknown [id number] 2.16.840.1.768454.3.579.2.1246 1964 Unknown [id number] 2.16.840.1.674488.3.579.2.1246 1964 Unknown [id number] 2.16.840.1.315088.3.579.2.1246 1964 Unknown [id number] 2.16.840.1.278122.3.579.2.124 1964 Unknown [id number] 2.16.840.1.181381.3.579.2.1246 1964 Unknown [id number] 2.16.840.1.897717.3.579.2.1246 1964 Unknown [id number] 2.16.840.1.633620.3.579.2.1259 1964 Unknown [id number] 2.16.840.1.530049.3.579.2.9 1964 Unknown [id number] 2.16.840.1.466230.3.579.2.1259 1964 Unknown [id number] 2.16.840.1.029547.3.579.2.1259 1964 Unknown [id number] 2.16.840.1.645866.3.579.2.1259 1959 Medicaid [id number] 1960 Medicare [id number] Unknown [id number] Unknown Unknown [employer] [id number] Unknown [id number] 2.16.840.1.122975.3.579.2.531 Unknown [id number] 2.16.840.1.569083.3.579.2.531 Social History Date Type Detail Facility Start: 07-13-2023 End: 06-13-2024 No alcohol use No alcohol use [facility] Comment on above: 1 pack daily; Start: 04-13-2023 End: 07-13-2023 Tobacco smoking status ALIS Smokes tobacco daily [facility] Start: 05-09-2024 History of tobacco use Cigarette Smo ker [facility] Work Phone: Start: 07-13-2023 End: 06-13-2024 Tobacco use and exposure Smokeless tobacco non-user [facility] Work Phone: Start: 07-22-2023 End: 06-13-2024 Alcohol intake Lifetime non-drinker (finding) [facility] Work Phone: Start: 07-13-2023 End: 06-13-2024 Tobacco use panel [facility] Start: 1965 [facility]igned [facility] Work [facility]: Start: 07-12-2023 End: 06-13-2024 Exposure to SARS-CoV-2 (event) Not sure [facility] Frequency of Social Gatherings with Friends and Family Not on file [facility] Do you belong to any clubs or organizations such as sikh groups, unions, fraCodeoscopic or athletic groups, or school groups? No [...] buy more. Never true [facility] Start: 05-09-2024 Tobacco smoking stat us ALIS Smoker (finding) [facility] Start: 03-17-2024 End: 03-28-2024 Sex Male (finding) [facility] Start: 1965 Sex Assigned At Male F [facility] Start: 06-13-2024 [facility] Work Phone: Medical Equipment Procedure Code Equipment Code Equipment Origin al Text Equipment Identifier Dates Lead, Capsurefix Novus, 52 Cm - [id number] Start: 08-05-2023 Lead, Capsurefix Novus, 45 Cm - [id number] Start: 08-05-2023 Pacemaker, Dual Chamber, Kae Mri Xt Dr - [id number] Start: 08-05-2023 Clinical Notes 08-31-2020 to 06-13-2024 Valentino Ty MD - 06/13/2024 9:10 AM ESTPatient InstructionsIshmael Simon MD - 06/06/2024 10:12 AM Liz Simon MD - 06/06/2024 10:12 AM ESTIshmael Simon MD - 06/06/2024 10:11 AM EST Note Date & Type Note Facility 06-13-2024 History of Present illness Narrative Subjective Liliana Michaels Jr. is a 59 y.o. male Chief Complaint Follow-up HPI Patient is here for follow-up continue management for history of symptomatic sick sinus syndrome status post permanent pacemaker implantation, hypertension, obesity and mild coronary artery disease noted on CT scan. Since last time I saw him he report he was in the hospital recently with COPD exacerbation. Following that he reports he quit smoking. He denies chest pain, lightheadedness, dizziness or syncope. His recent device check noted and reviewed with him. Assessment 1. Symptomatic sick sinus syndrome status post rpacemaker implantation with marked improvement of his functional status. His recent device check noted and reviewed with him 2. Previous history of abnormal stress test which led to an ischemic evaluation. A CTA was done I was able also to find with care everywhere the result of coronary CTA showing minimal irregularity and mild to moderate stenosis of proximal RCA with Agatston score of 122 3. Hypertension 4. Tobacco use and COPD he report he quit smoking recently 5. Obesity 6. Mild coronary artery disease based on CTA showing moderate disease of the RCA. I will have low threshold to proceed with heart cath if patient develop any anginal symptoms considering his risk profile Plan 1. I advised the patient to continue aspirin and start rosuvastatin 10 mg daily and an effort to optimize risk factor modification 2. We discussed risk factor modification at great length. Patient was counseled regarding smoking cessation patient report he quit recently 3. We will repeat his lab work 4. I recommended aggressive approach risk factor modification 5. Follow-up in 8-month Review of Systems All other systems reviewed and are negative. Vitals: 06/13/24 0907 BP: 132/74 BP Location: Left arm Patient Position: Sitting Pulse: 80 Weight: 96.2 kg (212 lb) Height: 1.626 m (5' 4 ) Objective Physical Exam Constitutional: Appearance: Normal appearance. HENT: Nose: Nose normal. Neck: Vascular: No carotid bruit. Cardiovascular: Rate and Rhythm: Normal rate. Pulses: Normal pulses. Heart sounds: Normal heart sounds. Pulmonary: Effort: Pulmonary effort is normal. Abdominal: General: Bowel sounds are normal. Palpations: Abdomen is soft. Musculoskeletal: General: Normal range of motion. Cervical back: Normal range of motion. Right lower leg: No edema. Left lower leg: No edema. Skin: General: Skin is warm and dry. Neurological: General: No focal deficit present. Mental Status: He is alert. Psychiatric: Mood and Affect: Mood normal. Behavior: Behavior normal. Thought Content: Thought content normal. Judgment: Judgment normal. Allergies Patient has no known allergies. Current Medications Current Outpatient Medications: albuterol (Ventolin HFA) 90 mcg/actuation inhaler, Inhale 2 puffs every 4 hours if needed., Disp: , Rfl: Aldactone 100 mg tablet, Take 1 tablet (100 mg) by mouth once daily with breakfast., Disp: , Rfl: aspirin 81 mg EC tablet, Take 1 tablet (81 mg) by mouth once daily., Disp: , Rfl: baclofen (Lioresal) 10 mg tablet, TAKE 1/2 TO 1 TABLET BY MOUTH TWICE A DAY, Disp: , Rfl: cetirizine (ZyrTEC) 10 mg tablet, Take 1 tablet (10 mg) by mouth once daily at bedtime., Disp: , Rfl: vvjhtpxsuiv-bjgbkuyet-oumklslv (TRELEGY-ELLIPTA) 100-62.5-25 mcg blister with device, Inhale 1 puff. Use as directed, Disp: , Rfl: furosemide (Lasix) 40 mg tablet, Take 1 tablet (40 mg) by mouth 2 times a day., Disp: , Rfl: gabapentin (Neurontin) 300 mg capsule, Take 1 capsule (300 mg) by mouth once daily., Disp: , Rfl: nabumetone (Relafen) 500 mg tablet, Take 1 tablet (500 mg) by mouth 2 times a day., Disp: , Rfl: omeprazole (PriLOSEC) [address] capsule, Take 1 capsule (40 mg) by mouth once daily., Disp: , Rfl: oxyCODONE-acetaminophen (Percocet) 7.5-325 mg tablet, Take 1 tablet by mouth every 6 hours if needed for severe pain (7 - 10)., Disp: , Rfl: oxygen (O2) gas therapy, 2l at bedtime, Disp: , Rfl: Singulair 10 mg tablet, Take 1 tablet (10 mg) by mouth once daily at bedtime., Disp: , Rfl: rosuvastatin (Crestor) 10 mg tablet, Take 1 tablet (10 mg) by mouth once daily., Disp: 90 tablet, Rfl: 3 Assessment/Plan 1. Sick sinus syndrome (Multi) 2. Chronotropic incompetence Follow Up In Cardiology 3. Peripheral vascular disease, unspecified (CMS-HCC) rosuvastatin (Crestor) 10 mg tablet 4. Pacemaker 5. Essential hypertension, benign Follow Up In Cardiology Basic Metabolic Panel Basic Metabolic Panel 6. Sinus bradycardia 7. Hyperlipidemia, unspecified hyperlipidemia type rosuvastatin (Crestor) 10 mg tablet Alanine Aminotransferase Aspartate Aminotransferase Lipid Panel Alanine Aminotransferase Aspartate Aminotransferase Lipid Panel 8. Dyspnea on exertion 9. BMI 37.0-37.9, adult 10. Former smoker 11. Mild coronary artery disease Scribe Attestation By signing my name below, Yola Blackwell LPN, Scribe attest that this documentation has been prepared under the direction and in the presence of Valentino Ty MD. Provider Attestation - Scribe documentation All medical record entries made by the Scribe were at my direction and personally dictated by me. I have reviewed the chart and agree that the record accurately reflects my personal performance of the history, physical exam, discussion and plan. documented in this encounter [facility] Work Phone: 06-13-2024 Instructions Yola Morrow LPN - 06/13/2024 9:10 AM EST Please bring all medicines, vitamins, and herbal supplements with you when you come to the office. Prescriptions will not be filled unless you are compliant with your follow up appointments or have a follow up appointment scheduled as per instruction of your physician. Refills should be requested at the time of your visit. Crestor 10 mg daily Lab work 3-6 months 10 months Pacemaker/Defibrillator follow up per routine documented in this encounter [facility] Work Phone: 06-06-2024 History of Present illness Narrative Associated Problem(s): Essential hypertension, benign (CMS/HCC) BP controlled and monitor PRN. Associated Problem(s): Class 2 severe obesity due to excess calories with serious comorbidity and body mass index (BMI) of 36.0 to 36.9 in adult (CMS/HCC) Weight loss indicated. Associated Problem(s): Chronic obstructive pulmonary disease (CMS/HCC) Recent exacerbation but improved. Complete prednisone as directed. Use albuterol PRN. Associated Problem(s): Chronic hypoxic respiratory failure (CMS/HCC) Normal SpO2 on room air and continue nocturnal O2. Images from the original note were not included. Subjective Patient ID: Liliana Michaels Jr is a 59 y.o. male who presents for Follow-up (Hospital f/up). Hospital follow up from 05/27-05/28 for COPD exacerbation. Developed cough and SOB for several days prior. Severe fatigue and weakness. Chest tight and hard to take deep breath. Worsening symptoms and to ER. SpO2 88% on room air. X-ray normal. Admitted for COPD exacerbation. Started steroids, antibiotics, and breathing treatments. Improved overnight. Weaned off oxygen and normal SpO2 on room air. Discharged with prednisone and zithromax. Still weaning down off prednisone taper. Overall improved. Still SOB with exertion and occasional cough but improving. Still fatigue with exertion. Review of Systems Constitutional: Negative for fatigue. Respiratory: Positive for cough and shortness of breath. Negative for wheezing. Cardiovascular: Negative for chest pain and [...] Assessment/Plan Problem List Items Addressed This Visit Chronic hypoxic respiratory failure (CMS/HCC) Normal SpO2 on room air and continue nocturnal O2. Chronic obstructive pulmonary disease (CMS/HCC) - Primary Recent exacerbation but improved. Complete prednisone as directed. Use albuterol PRN. Relevant Medications albuterol HFA 90 mcg/act inhaler documented in this encounter [facility] 05-29-2024 Note Gram Stain Evaluation This specimen is of good quality and is acceptable for routine [facility] 05-29-2024 Note [facility] GRAM STAIN EVALUATION bacterial culture. [facility] 05-23-2024 History of Present illness Narrative Formatting of this note is different fro m the original. CARDIOLOGY OFFICE VISIT CHIEF COMPLAINT Chief Complaint [...] A DAY cetirizine (ZYRTEC) 10 mg, Nightly yzbqzovmoaz-dtwwujggn-ksyvgosw (TRELEGY-ELLIPTA) 100-62.5-25 mcg blister with device 1 [...] bradycardia status post dual-chamber pacemaker implant ([employer] [place] XT DR MRI) on August 05, 2023. [...] prepare this document. documented in this encounter [facility] Work Phone: 05-23-2024 Instructions Jazz Flynn [...] AMADOR SON MD documented in this encounter [facility] Work Phone: 04-24-2024 History of Present illness Narrative Associated Problem(s): Class 2 severe obesity due to excess calories with serious comorbidity and body mass index (BMI) of 37.0 to 37.9 in adult ([facility]) Weight up 28 pounds in past year. Add ozempic. Associated Problem(s): Essential hypertension, benign ([facility]) BP controlled and monitor PRN. Associated Problem(s): Type 2 diabetes mellitus with hyperglycemia, without long-term current use of insulin ([facility]) Not checking BS and due [...] Items Addressed This Visit Essential hypertension, benign ([facility]) BP controlled and monitor PRN. Type 2 diabetes mellitus with hyperglycemia, without long-term current use of insulin ([facility]) Not checking BS and due for A1C. Add ozempic. Relevant Medications semaglutide (Ozempic, 0.25 or 0.5 MG/DOSE,) 2 MG/1.5ML solution pen-injector Other Relevant Orders Hemoglobin A1c Class 2 severe obesity due to excess calories with serious comorbidity and body mass index (BMI) of 37.0 to 37.9 in adult ([facility]) Weight up 28 pounds in [...] daily Aspirin therapy. documented in this encounter [facility] 02-06-2024 History of Present illness Narrative [...] DNA probe, direct documented in this encounter [facility] 01-13-2024 History of Present illness Narrative Associated Problem(s): Type 2 diabetes mellitus with hyperglycemia, without long-term current use of insulin ([facility]) Not checking BS and A1C 5.8. Stick [...] is alert. Assessment/Plan documented in this encounter [facility] 11-09-2023 History of Present illness Narrative Formatting of this note is different fro m the original. CARDIOLOGY OFFICE VISIT CHIEF COMPLAINT Chief Complaint [...] DAY cetirizine (ZYRTEC) 10 mg, oral, Nightly yanobvwztoy-fjmczrvlh-aupxvrtq (TRELEGY-ELLIPTA) 100-62.5-25 mcg blister with device 1 [...] 68 bpm, prolonged AV conduction with a MT interval of 220 ms, QRS durations 100 [...] sinus bradycardia status post dual-chamber pacemaker implant ([employer] [place] XT DR MRI) on August 05, 2023. [...] of the device at the airport or [place]. Do not carry cell phone in the [...] prepare this document. documented in this encounter [facility] Work Phone: 08-10-2023 History of Present illness Narrative Formatting of this note is different fro m the original. 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 No [...] Diagnosis Date Arrhythmia CHF (congestive heart failure) ([facility]) COPD (chronic obstructive pulmonary disease) ([facility]) Hypertension Social History Social History [...] breakfast cetirizine (ZYRTEC) 10 mg, oral, Nightly amghtfbusai-vonmrbqhl-kgkhljys (TRELEGY-ELLIPTA) 100-62.5-25 mcg blister with device 1 [...] prepare this document. documented in this encounter [facility] Work Phone: 08-10-2023 Instructions Vero Mccarthy [...] Amador Son MD documented in this encounter [facility] Work Phone: 08-05-2023 Nurse Note Patient discharge instructions reviewed with patient and , verbalized understanding. Lt chest dressing remains dry/intact, no hematoma, no ecchymosis. Patient able to teachback site care instructions, follow up appointments. IV x2 removed and patient discharged to home via w/c. [facility] 08-05-2023 Nurse Note Patient discharge instructions [...] and ice pack over site. Sterling from [employer] in room speaking to Pt and SO educating on home device monitor. Pt returned to room after echocardiogram. Denies needs at this time. documented in this encounter [facility] Work Phone: 08-05-2023 Nurse Note Patient sitting up in chair, denies any complaints of incisional pain. Lt upper chest incision remains dry/intact. Will begin discharge instructions. [facility] Work Phone: 08-05-2023 Nurse Note Patient ambulated to BR, gait steady. Pacer rep has already met with patient and . Lt upper chest dressing remains dry/intact. Lt arm in immobilizer and ice pack over site. [facility] Work Phone: 08-05-2023 Note Formatting of this n ote might be different from the original. Post EKG and CXR performed at bedside. Pt denies needs at this time. Left chest remains soft and stable with no hematoma or oozing. [facility] Work Phone: 08-05-2023 Miscellaneous Notes Post [...] discussed with patient. documented in this encounter [facility] Work Phone: 08-05-2023 Hospital Discharge instructions Ana M Kumari, [employer] - 08/05/2023 5:00 PM EDT Images from [...] your arm above shoulder level. Do not cloth picker items that weigh greater than 10 [...] have been instructed by the device company field representatives director regarding remote home monitoring. There are multiple [...] sent through Care Everywhere.Pacemaker Insertion Discharge Instructions ([place])documented in this encounter [facility] Work Phone: 08-05-2023 Note Formatting of [...] Pt denies further needs at this time. [facility] Work Phone: 08-05-2023 Note Table formatting [...] of infection. The patient should call the weed thinner immediately if symptoms recur, or for any problems. The patient has been instructed accordingly. 2. Follow up with [facility] office in seven days for post-operative wound [...] model number W1 DR 017 number [id number]. Right atrial lead [employer] 5076/45 serial number [id number] 8 mm [id number]. Imp (more content not included)... [id number] _XPER 08-05-2023 Note Formatting of this n ote might be different from the original. Sedation Plan ASA 2 Mallampati class: II. Risks, benefits, and alternatives discussed with patient. [facility] Work Phone: 08-05-2023 Attending History and [...] some point he had some evaluation in [place] that shows no significant obstructive coronary disease [...] night however but few episodes in the head sugar reprocess operator hours were also noted 5. No [...] breakfast cetirizine (ZYRTEC) 10 mg, oral, Nightly rtapezshbib-tlmngnrpc-zktoxkcu (TRELEGY-ELLIPTA) 100-62.5-25 mcg blister with device 1 [...] software was utilized to prepare this document. [facility] Work Phone: 08-05-2023 History and physical [...] some point he had some evaluation in [place] that shows no significant obstructive coronary disease [...] night however but few episodes in the head sugar reprocess operator hours were also noted 5. No [...] breakfast cetirizine (ZYRTEC) 10 mg, oral, Nightly uyohwdqpreq-udnrtrypj-noinchac (TRELEGY-ELLIPTA) 100-62.5-25 mcg blister with device 1 [...] prepare this document. documented in this encounter [facility] Work Phone: 08-05-2023 Nurse Note Sterling from [employer] in room speaking to Pt and SO educating on home device monitor. [facility] 08-05-2023 Nurse Note Pt returned to room after echocardiogram. Denies needs at this time. [facility] Work Phone: 07-22-2023 History of Present illness Narrative Formatting of this note is different fro m the original. 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 No [...] breakfast cetirizine (ZYRTEC) 10 mg, oral, Nightly upgfxratibc-hlfwctryx-uuvnxprs (TRELEGY-ELLIPTA) 100-62.5-25 mcg blister with device 1 [...] prepare this document. documented in this encounter [facility] Work Phone: 07-22-2023 Instructions Jazz Flynn [...] AMADOR SON MD documented in this encounter [facility] Work Phone: 07-20-2022 Note CONSULTATION PROCEDURE [...] right medial portion of his leg. [facility] 05-07-2022 Note CONSULTATION CONSULTATION DATE: [...] three months' time unless otherwise indicated. [facility] 01-14-2022 Note CONSULTATION CONSULTATION DATE: [...] it was recommended that he see a crane service technician, which he did do. He did a Holter monitor study and is following up with his crane service technician on 01/28/2022. Current medications include gabapentin [...] agrees with the plan of care. [facility] 11-19-2021 Note CONSULTATION CONSULTATION DATE: [...] to S1. Activities such as standing, walking, head sugar reprocess operator and evening hours, stairs, bending and [...] be followed up in the clinic post-procedure. [facility] Signed and Approved by: YOLA COLMENARES . 11/27/2021 14:13:00 [facility] 10-22-2021 Note CONSULTATION CONSULTATION DATE: [...] patient agrees with the plan of care. [facility] Signed and Approved by: YOLA COLMENARES . 11/04/2021 16:23:00 [facility] 10-01-2021 Note CONSULTATION CONSULTATION DATE: 10/01/2021 HISTORY [...] shape. He has seen Dr. Nunn in [place] in the past regarding his back, and [...] of care. IF Signed and Approved by: YOLA COLMENARES . 10/08/2021 16:01:00 [facility] 08-31-2020 Note Microbiology PROCEDURE: Blood [...] Locations R1: This test was performed at: [facility], [address] [place] [address], [id number] , , [facility] Comment on above: Performed By: #### [id number] ####[facility] [id number] [place] [address] 08-31-2020 Note Microbiology PROCEDURE: Blood Culture Charcoal [...] Locations R1: This test was performed at: [facility], [address] [place] [address], [facility] , , [facility] Comment on above: Performed By: #### [id number] ####[facility] [address] [place] [address] Evaluation note Diagnosis 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 Sinus bradycardia Other specified cardiac dysrhythmias Establishing care with new doctor, encounter for BMI 34.0-34.9,adult Sick sinus syndrome (CMS/HCC) Sinoatrial node dysfunction Simple chronic bronchitis (CMS/HCC) Simple chronic bronchitis Current smoker Other fatigue Preoperative cardiovascular examination Pre-operative cardiovascular examination documented in this encounter [facility] Work Phone: Evaluation note* Diagnosis Other [...] dysfunction Other fatigue documented in this encounter [facility] Work Phone: Evaluation note* Diagnosis Localized swelling on left hand S/P placement of cardiac pacemaker 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 Abnormal stress test Other nonspecific abnormal cardiovascular system function study Sinus bradycardia Other specified cardiac dysrhythmias Sick sinus syndrome (CMS/HCC) Sinoatrial node dysfunction Essential hypertension, benign BMI 34.0-34.9,adult Current smoker documented in this encounter [facility] Work Phone: Evaluation note* Diagnosis Localized swelling on left hand S/P placement of cardiac pacemaker documented in this encounter [facility] Work Phone: Evaluation note* Diagnosis Cardiac pacemaker in situ Sinoatrial node dysfunction (Multi) Sinoatrial node dysfunction documented in this encounter [facility] Work Phone: Evaluation note* Diagnosis Cardiac pacemaker in situ Sinoatrial node dysfunction (Multi) Sinoatrial node dysfunction documented in this encounter [facility] Work Phone: Evaluation note* Diagnosis Type [...] lumbosacral intervertebral disc documented in this encounter [facility] HealthcareEvaluation noteNo assessment information availableUniversity [facility] Work Phone: Evaluation note* Diagnosis [...] (pediatric) Current smoker documented in this encounter [facility] Work Phone: Evaluation note* Diagnosis Pacemaker Cardiac pacemaker in situ documented in this encounter [facility] Work Phone: Evaluation note* Diagnosis Type [...] gangrene, without long-term current use of insulin ([facility]) Peripheral vascular disease, unspecified (I73.9) Peripheral vascular [...] hyperglycemia, without long-term current use of insulin ([facility]) Essential hypertension, benign (CMS/HCC) Essential hypertension, benign Class 2 severe obesity due to excess calories with serious comorbidity and body mass index (BMI) of 37.0 to 37.9 in adult ([facility]) documented in this encounter [facility] HealthcareEvaluation note* Diagnosis Cardiac pacemaker in situ Sinoatrial node dysfunction (Multi) Sinoatrial node dysfunction documented in this encounter [facility] Work Phone: Evaluation note* Diagnosis Degeneration of lumbar intervertebral disc Degeneration of lumbar or lumbosacral intervertebral disc documented in this encounter [facility] HealthcareEvaluation note* Diagnosis Type 2 diabetes mellitus with hyperglycemia, without long-term current use of insulin ([facility]/HCC)- Primary Essential hypertension, benign (CMS/HCC) Essential hypertension, benign Chronic diastolic heart failure (CMS/HCC) Chronic diastolic heart failure Chronic obstructive pulmonary disease, unspecified COPD type (CMS/HCC) DDD (degenerative disc disease), lumbar Degeneration of lumbar or lumbosacral intervertebral disc Primary osteoarthritis of right hip Body mass index (BMI) 35.0-35.9, adult documented in this encounter [facility] HealthcareEvaluation note* Diagnosis Degeneration of lumbar intervertebral disc Degeneration of lumbar or lumbosacral intervertebral disc documented in this encounter [facility] HealthcareEvaluation note* Diagnosis Other intervertebral disc degeneration, lumbar region Degeneration of lumbar or lumbosacral intervertebral disc documented in this encounter [facility] HealthcareEvaluation note* Diagnosis Dysuria- Primary Acute prostatitis Pyuria Other nonspecific finding on examination of urine documented in this encounter [facility] HealthcareEvaluation note* Diagnosis Type 2 diabetes mellitus [...] lumbosacral intervertebral disc documented in this encounter [facility] HealthcareEvaluation note* Diagnosis Cardiac pacemaker in situ- Primary Sick sinus syndrome (Multi) Sinoatrial node dysfunction MRI safe cardiac pacemaker in situ Abnormal EKG Nonspecific abnormal electrocardiogram (ECG) (EKG) Chronotropic incompetence Other specified conduction disorder Sinoatrial node dysfunction (Multi) Sinoatrial node dysfunction Sinus bradycardia Other specified cardiac dysrhythmias Current smoker BMI 37.0-37.9, adult documented in this encounter [facility] Work Phone: Evaluation note* Diagnosis Sinus bradycardia Other specified cardiac dysrhythmias Sick sinus syndrome (Multi) Sinoatrial node dysfunction Chronotropic incompetence Other specified conduction disorder MRI safe cardiac pacemaker in situ documented in this encounter [facility] Work Phone: Evaluation note* Diagnosis Type [...] lumbosacral intervertebral disc documented in this encounter [facility] HealthcareEvaluation note* Diagnosis Type 2 diabetes mellitus [...] lumbosacral intervertebral disc documented in this encounter [facility] HealthcareEvaluation note* Diagnosis Type 2 diabetes mellitus [...] complication, without long-term current use of insulin ([facility]) Vasculogenic erectile dysfunction, unspecified vasculogenic erectile dysfunction type Type 2 diabetes mellitus with diabetic peripheral angiopathy without gangrene, without long-term current use of insulin ([facility]) Peripheral vascular disease, unspecified (I73.9) Peripheral vascular disease, unspecified Type 2 diabetes mellitus with hyperglycemia, without long-term current use of insulin ([facility]/HCC)- Primary Essential hypertension, benign (CMS/HCC) Essential hypertension, benign Chronic diastolic heart failure ([facility]/HCC) Chronic diastolic heart failure Chronic obstructive pulmonary [...] hyperglycemia, without long-term current use of insulin ([facility]) Essential hypertension, benign ([facility]) Essential hypertension, benign Class 2 severe obesity due to excess calories with serious comorbidity and body mass index (BMI) of 37.0 to 37.9 in adult ([facility]) Chronic obstructive pulmonary disease with acute exacerbation ([facility])- Primary Chronic hypoxic respiratory failure ([facility]) Class 2 severe obesity due to excess calories with serious comorbidity and body mass index (BMI) of 36.0 to 36.9 in adult ([facility]) Essential hypertension, benign ([facility]) Essential hypertension, benign documented in this encounter [facility] HealthcareEvaluation note* Diagnosis Sick sinus syndrome (Multi)- Primary Sinoatrial node dysfunction Chronotropic incompetence Other specified conduction disorder Peripheral vascular disease, unspecified ([facility]) Peripheral vascular disease, unspecified Pacemaker Cardiac pacemaker in situ Essential hypertension, benign Sinus bradycardia Other specified cardiac dysrhythmias Hyperlipidemia, unspecified hyperlipidemia type Dyspnea on exertion Other dyspnea and respiratory abnormality BMI 37.0-37.9, adult Former smoker Personal history of tobacco use, presenting hazards to health Mild coronary artery disease documented in this encounter [facility] Work Phone: History of Present illness Narrative* Patient is here for cardiovascular evaluation for second opinion in regard to documents resting sinus bradycardia. The patient is 56-year-old with history of tobacco use and COPD was evaluated recently due to shortness of breath and his stress test showed questionable inferior wall ischemia. This led to a cardiac evaluation in [place] and its not clear to me whether [...] recent ischemic evaluation * 5 follow-up in [address] [place] [address] 600 DO Work Phone: History of Present illness Narrative* Patient is here for cardiovascular evaluation for second opinion in regard to documents resting sinus bradycardia. The patient is 56-year-old with history of tobacco use and COPD was evaluated recently due to shortness of breath and his stress test showed questionable inferior wall ischemia. This led to a cardiac evaluation in [place] and its not clear to me whether [...] evaluation * 5 follow-up in 6 [facility] Work Phone: History of Present illness Narrative* Patient is here for cardiovascular evaluation for second opinion in regard to documents resting sinus bradycardia. The patient is 56-year-old with history of tobacco use and COPD was evaluated recently due to shortness of breath and his stress test showed questionable inferior wall ischemia. This led to a cardiac evaluation in [place] and its not clear to me whether [...] evaluation * 5 follow-up in 6 [facility] Work Phone: History of Present illness [...] ischemic evaluation. He underwent cardiac catheterization in [place] which showed no significant obstructive disease * [...] EKG or earlier if the need arise [facility] 600 DO Work Phone: Reason for visit Narrative* Imaging (Routine) - Pending Review Specialty Diagnoses / Procedures Referred By Isela t Referred To Contact Cardiology Diagnoses Sinus bradycardia Sick sinus syndrome (Multi) Chronotropic incompetence MRI safe cardiac pacemaker in situ Procedures Cardiac Device Check - In Clinic Naima Wright, [employer] Phone: tel: fax: Referral ID Status Reason Start Date Expiration Date Visits Requested Visits Authorized [id number] Pending Review Perform Procedure 11/09/2023 11/08/2024 1 1 [facility] Work Phone: Summary Purpose Family History [...] Preoperative cardiovascular examination Procedures Transthoracic Echo Complete MT ECHO TTHRC R-T 2D W/WOM-MODE COMPL SPEC&COLR D Amador Son MD [address] [address] Referral ID Status Reason Start Date Expiration Date Visits Requested Visits Authorized [id number] Pending Review Perform Procedure 07/22/2023 07/21/2024 1 1 Specialty Diagnoses / Procedures Referred By Contac t Referred To Contact Diagnoses Sinus bradycardia Establishing care with new doctor, encounter for Procedures ECG 12 lead (Clinic Performed) Amador Son MD [address] [address] Referral ID Status Reason Start Date Expiration Date V isits Requested Visits Authorized [id number] Authorized 07/22/2023 07/21/2024 1 1 Specialty Diagnoses / Procedures Referred By Contac t Referred To Contact Radiology Diagnoses Pacemaker Procedures XR chest 2 views Ana M Kumari, [employer] [address] [facility], [address] [address] Referral ID Status Reason Start Date Expiration Date Visits Requested Visits Authorized [id number] Authorized Perform Procedure 08/05/2023 08/04/2024 1 1 Specialty Diagnoses / Procedures Referred By Contac t Referred To Contact Cardiology Diagnoses Pacemaker Procedures Cardiac Device Check - In Clinic Ana M Kumari, [employer] [address] [facility], [address] [address] Referral ID Status Reason Start Date Expiration Date Visits Requested Visits Authorized [id number] Pending Review Perform Procedure 08/05/2023 08/04/2024 1 1 Specialty Diagnoses / Procedures Referred By Contac t Referred To Contact Cardiology Diagnoses Localized swelling on left hand S/P placement of cardiac pacemaker Procedures Vascular US upper extremity venous duplex left Naima Wright [employer] [address] [facility], [address] [address] Referral ID Status Reason Start Date Expiration Date Visits Requested Visits Authorized [id number] Authorized Perform Procedure 08/09/2023 08/08/2024 1 1 Specialty Diagnoses / Procedures Referred By Contac t Referred To Contact Cardiology Diagnoses Cardiac pacemaker in situ Sinoatrial node dysfunction (Multi) Procedures Cardiac Device Check - Remote Amador Son MD [address] [address] Referral ID Status Reason Start Date Expiration Date Visits Requested Visits Authorized [id number] Pending Review Perform Procedure 08/08/2023 08/07/2024 1 1 Specialty Diagnoses / Procedures Referred By Contac t Referred To Contact Cardiology Diagnoses Sinus bradycardia Sick sinus syndrome (Multi) Chronotropic incompetence MRI safe cardiac pacemaker in situ Procedures Cardiac Device Check - In Clinic Naima Wright [employer] [address] [facility], [address] [address] Referral ID Status Reason Start Date Expiration Date Visits Requested Visits Authorized [id number] Pending Review Perform Procedure 11/09/2023 11/08/2024 1 1 Specialty Diagnoses / Procedures Referred By Contac t Referred To Contact Cardiology Diagnoses Sick sinus syndrome (Multi) MRI safe cardiac pacemaker in situ Procedures Follow Up In Cardiology Naima Wright, [employer] [address] [facility], [address] [address] Amador Son MD [address] [facility] [address] [place] [address] Referral ID Status Reason Start Date Expiration Date V isits Requested Visits Authorized [id number] Authorized 11/09/2023 11/08/2024 1 1 Specialty Diagnoses / Procedures Referred By Isela mckay Referred To Contact Diagnoses Sinus bradycardia Procedures ECG 12 lead (Clinic Performed) Niama Wright, [employer] [address] [facility], [address] [address] Referral ID Status Reason Start Date Expiration Date V isits Requested Visits Authorized [id number] Authorized 11/09/2023 11/08/2024 1 1 Chief Complaint [...] and content) DATE CREATED AUTHOR 03/06/2021 [facility] DATE CREATED AUTHOR AUTHOR'S ORGANIZ ATION 03/12/2021 [facility] DATE CREATED AUTHOR AUTHOR'S ORGANIZ ATION 02/16/2022 [facility] DATE CREATED AUTHOR AUTHOR'S ORGANIZ ATION 07/16/2022 [facility] DATE CREATED AUTHOR AUTHOR'S ORGANIZ ATION 07/16/2022 [facility] DATE CREATED AUTHOR AUTHOR'S ORGANIZ ATION 09/17/2022 [facility] DATE CREATED AUTHOR AUTHOR'S ORGANIZ ATION 04/03/2024 [facility] DATE CREATED AUTHOR AUTHOR'S ORGANIZ ATION 04/30/2024 [facility] DATE CREATED AUTHOR AUTHOR'S ORGANIZ ATION 05/26/2024 [facility] DATE CREATED AUTHOR AUTHOR'S ORGANIZ ATION 05/26/2024 [facility] DATE CREATED AUTHOR AUTHOR'S ORGANIZ ATION 06/08/2024 [facility] EPIC Reason for Visit (unrecogniz ed section and content) Reason Comments New Patient Visit Pt is here today as a new patient from Dr. Ty Specialty Diagnoses / Procedures Referred By Isela mckay Referred To Contact Cardiology Diagnoses Sinus bradycardia Valentino Ty MD [address] [facility], [address] [place] [address] Amador Son MD 125 [facility], [facility] [address] [place] [address] Referral ID Status Reason Start Date Expiration Date Visits Requested Visits Authorized [id number] Authorized Specialty Services Required 07/15/2023 07/14/2024 1 1 Specialty Diagnoses / Procedures Referred By Isela mckay Referred To Contact Diagnoses Sinus bradycardia Chronotropic incompetence Sick sinus syndrome (CMS/HCC) Other fatigue Sinus bradycardia [R00.1] Chronotropic incompetence [I45.89] Sick sinus syndrome (CMS/HCC) [I49.5] Other fatigue [R53.83] Procedures MT INS NEW/RPLCMT PRM PM W/TRANSV ELTRD ATRIAL&VENT PPM IMPLANT DUAL Amador Son MD 254 [facility] [address] [place] [address] [facility] [address] [place] [address] Referral ID Status Reason Start Date Expiration Date Visits Re quested Visits Authorized [id number] 1 1 Reason Comments Wound Check Patient is having sw elling in his right hand Specialty Diagnoses / Procedures Referred By Contac t Referred To Contact Cardiology Diagnoses Localized swelling on left hand S/P placement of cardiac pacemaker Procedures Vascular US upper extremity venous duplex left Naima Wright, [employer] [address] [address] Referral ID Status Reason Start Date Expiration Date Visits Requested Visits Authorized [id number] Authorized Perform Procedure 08/09/2023 08/08/2024 1 1 Specialty Diagnoses / Procedures Referred By Contac t Referred To Contact Cardiology Diagnoses Cardiac pacemaker in situ Sinoatrial node dysfunction (Multi) Procedures Cardiac Device Check - Remote Amador Son MD [address] [address] Referral ID Status Reason Start Date Expiration Date Visits Requested Visits Authorized [id number] Pending Review Perform Procedure 08/08/2023 08/07/2024 1 1 Reason Onset Date Comments Med Refill 03/01/2024 Reason Onset Date Comments Med Refill 03/30/2024 Reason Comments Follow-up Pt is here today fol lowing up with device check Specialty Diagnoses / Procedures Referred By Isela t Referred To Contact Diagnoses Sinus bradycardia Procedures ECG 12 lead (Clinic Performed) Naima Wright, [employer] [address] [address] Referral ID Status Reason Start Date Expiration Date V isits Requested Visits Authorized [id number] Authorized 11/09/2023 11/08/2024 1 1 Specialty Diagnoses / Procedures Referred By Contac t Referred To Contact Cardiology Diagnoses Pacemaker Procedures Cardiac Device Check - In Clinic Ana M Kumari, [employer] [address] [address] Referral ID Status Reason Start Date Expiration Date Visits Requested Visits Authorized [id number] Pending Review Perform Procedure 08/05/2023 08/04/2024 1 1 Specialty Diagnoses / Procedures Referred By Contac t Referred To Contact Radiology Diagnoses Pacemaker Procedures XR chest 2 views Ana M Kumari, [employer] [address] [facility], [facility] [address] [place] [address] Referral ID Status Reason Start Date Expiration Date Visits Requested Visits Authorized [id number] Authorized Perform Procedure 08/05/2023 08/04/2024 1 1 Reason Comments Medicare Annual Wellness Visit [facility] Reason Onset Date Comments Med Refill 12/30/2023 Reason Comments Follow-up 3 m Reason Onset Date Comments Med Refill 01/27/2024 Reason Comments Med Refill Reason Comments UTI Reason Onset Date Comments Med Refill 04/27/2024 Reason Comments Follow-up Pt is here today fol lowing up after 6 months with device check Specialty Diagnoses / Procedures Referred By Isela t Referred To Contact Cardiology Diagnoses Sick sinus syndrome (Multi) MRI safe cardiac pacemaker in situ Procedures Follow Up In Cardiology Naima Wright, [employer] Phone: tel: fax: Amador Son MD [address] [facility] [address] [place] [address] Phone: tel: fax: Referral ID Status Reason Start Date Expiration Date V isits Requested Visits Authorized [id number] Authorized 11/09/2023 11/08/2024 1 1 Reason Onset Date Comments Med Refill 05/28/2024 Reason Onset Date Comments Med Refill 05/29/2024 Reason Comments Follow-up Hospital f/up Reason Comments Follow-up 6m Specialty Diagnoses / Procedures Referred By Contac t Referred To Contact Cardiology Diagnoses Chronotropic incompetence Procedures Follow Up In Cardiology Valentino Ty MD [address] [facility] 2, [address] [address] Phone: tel: fax: Valentino Ty MD [address] [facility], [address] [place] [address] Phone: tel: fax: Referral ID Status Reason Start Date Expiration Date V isits Requested Visits Authorized [id number] Authorized 12/01/2023 11/30/2024 1 1 Care Teams (unrecognized sec tion and content) Civil Drafting Technician Relationship Specialty Start Date End Date Ishmael Simon MD [address] [place] [address] PCP - General Family Medicine 06/29/23 Civil Drafting Technician Relationship Specialty Start Date End Date Ishmael Simon MD [address] [place] [address] PCP - General Family Medicine 06/29/23 Civil Drafting Technician Relationship Specialty Start Date End Date Ishmael Simon MD [address] [place] [address] PCP - General Family Medicine 06/29/23 Civil Drafting Technician Relationship Specialty Start Date End Date Ishmael Simon MD [address] [place] [address] PCP - General Family Medicine 06/29/23 Civil Drafting Technician Relationship Specialty Start Date End Date Ishmael Simon MD PCP - General Family Medicine 06/29/23 Civil Drafting Technician Relationship Specialty Start Date End Date Ishmael Simon MD [address] [place] [address] PCP - General Family Medicine 06/29/23 Naima Wright, [employer] [address] [facility], [address] [place], [place] [phone] Nurse Practitioner Cardiology 11/07/23 Civil Drafting Technician Relationship Specialty Start Date End Date Ishmael Simon MD [address] [place] [address] PCP - General Family Medicine 10/10/23 Team [...] March 27, 2024 End: March 27, 2024 Civil Drafting Technician Relationship Specialty Start Date End Date Ishmael Simon MD [address] [place] [address] PCP - General Family Medicine 06/29/23 Naima Wright, [employer] [address] [address] Nurse Practitioner Cardiology 11/07/23 Civil Drafting Technician Relationship Specialty Start Date End Date Ishmael Simon MD [address] [place] [address] PCP - General Family Medicine 06/29/23 Naima Wright [employer] [address] [address] Nurse Practitioner Cardiology 11/07/23 Civil Drafting Technician Relationship Specialty Start Date End Date Ishmael Simon MD [address] [place] [address] PCP - General Family Medicine 10/10/23 Civil Drafting Technician Relationship Specialty Start Date End Date Ishmael Simon MD [address] [place] [address] PCP - General Family Medicine 10/10/23 Civil Drafting Technician Relationship Specialty Start Date End Date Ishmael Simon MD [address] [place] [address] PCP - General Family Medicine 10/10/23 Civil Drafting Technician Relationship Specialty Start Date End Date Ishmael Simon MD [address] [place] [address] PCP - General Family Medicine 06/29/23 Naima Wright, [employer] [address] [facility] Office Bl, [address] [phone] Nurse Practitioner Cardiology 11/07/23 Civil Drafting Technician Relationship Specialty Start Date End Date Ishmael Simon MD [address] [place] [address] PCP - General Family Medicine 10/10/23 Civil Drafting Technician Relationship Specialty Start Date End Date Ishmael Simon MD [address] [place] [address] PCP - General Family Medicine 10/10/23 Civil Drafting Technician Relationship Specialty Start Date End Date Ishmael Simon MD [address] [place] [address] PCP - General Family Medicine 10/10/23 Civil Drafting Technician Relationship Specialty Start Date End Date Ishmael Simon MD [address] [place] [address] PCP - General Family Medicine 10/10/23 Civil Drafting Technician Relationship Specialty Start Date End Date Ishmael Simon MD [address] [place] [address] PCP - General Family Medicine 10/10/23 Civil Drafting Technician Relationship Specialty Start Date End Date Ishmael Simon MD [address] [place] [address] PCP - General Family Medicine 10/10/23 Civil Drafting Technician Relationship Specialty Start Date End Date Ishmael Simon MD [address] [place] [address] PCP - General Family Medicine 10/10/23 Civil Drafting Technician Relationship Specialty Start Date End Date Ishmael Simon MD [address] [place] [address] PCP - General Family Medicine 10/10/23 Civil Drafting Technician Relationship Specialty Start Date End Date Ishmael Simon MD [address] [place] [address] PCP - General Family Medicine 06/29/23 Amador Son MD [address] [facility], [address] [place] [address] Child Care Centre Director Electrophysiology 05/17/24 Civil Drafting Technician Relationship Specialty Start Date End Date Ishmael Simon MD [address] [place] [address] PCP - General Family Medicine 06/29/23 Amador Son MD [address] [facility], [address] [place] [address] Child Care Centre Director Electrophysiology 05/17/24 Civil Drafting Technician Relationship Specialty Start Date End Date Ishmael Simon MD [address] [place] [address] PCP - General Family Medicine 10/10/23 Civil Drafting Technician Relationship Specialty Start Date End Date Ishmael Simon MD [address] [place] [address] PCP - General Family Medicine 10/10/23 Civil Drafting Technician Relationship Specialty Start Date End Date Ishmael Simon MD [address] [place] [address] PCP - General Family Medicine 10/10/23 Civil Drafting Technician Relationship Specialty Start Date End Date Ishmael Simon MD [address] [place] [address] PCP - General Family Medicine 10/10/23 Civil Drafting Technician Relationship Specialty Start Date End Date Ishmael Simon MD [address] [place] [address] PCP - General Family Medicine 06/29/23 Amador Son MD [address] [facility], [address] [place] [address] Child Care Centre Director Electrophysiology 05/17/24 Scheduled Active and Recently Administ [...] Starting on Tue08/05/23 at 1230, Preprocedure, call centre supervisor to EP lab 1221 ([place] - [...] er: Amador Son MD)1557 (Given - Provider: mAador Son MD)1612 (Given - Provider: Amador Son [...] BE BASED ON THE PRIMARY CLINICAL RECORDS. [email or web address] provides no warranty or guarantee of the accuracy or completeness of information in this document.
[2024-06-14 12:05] LABS: Alanine Aminotransferase 36 U/L (16-63); Aspartate Amino Transferase <5 U/L (15-37); Calcium 9.2 mg/dL (8.5-10.1); Carbon Dioxide 29.3 mmol/L (21.0-32.0); Chloride 100 mmol/L (98-107); Chol HDL Ratio 5.8; Cholesterol 265 mg/dL (<=200); Estimated GFR (African America >60 (>=60 mL/min/1.73m^2); Estimated GFR (Non-African Ame >60 (>=60 mL/min/1.73m^2); Glucose 118 mg/dL (74-106); HDL Cholesterol 46 mg/dL (40-60); Potassium 4.3 mmol/L (3.5-5.1); Sodium 138 mmol/L (136-145); Triglycerides 303 mg/dL (<=150); VLDL CHOLESTEROL 60.6 mg/dL
== END 2024-06-14 11:24 | disposition home or self-care (01) ==
LOC: LAB 11:25
PROVIDERS: PCP Family Medicine; Visit Provider Internal Medicine Cardiovascular Disease
DX: E78.5 Hyperlipidemia, unspecified (principal); I10 Essential (primary) hypertension
CPT/HCPCS: 36415; 80048; 80061; 84450; 84460

== ENCOUNTER 2024-06-26 13:40 | Outpatient (OUT) | payer MEDICARE, SELFPAY ==
--- NOTE | 2024-06-26 | CONS_ITS ---
CONSULTATION DATE: 06/26/2024 TO: Ishmael [place] M.D. CHIEF COMPLAINT: Includes right inner leg pain. HISTORY: He reports the pain as being 10/10, especially when he walks. He feels most comfortable in the semi-recumbent position. Denies any change in bowel and bladder habits or new sensorimotor changes in the lower extremities. CURRENT MEDICATIONS: Include Aleve, which he reports offers him only marginal relief. He is also on baclofen 10 mg b.i.d. He was unable to tolerate Zonegran and he reports the gabapentin at 300 mg daily is not effective. He reports that he has tried b.i.d. which made his pain worse. His WING on today?s visit was 45. EXAMINATION: Notable for patient having dysesthesia and hyperesthesia along the distribution of the right obturator nerve with significant myofascial dysfunction and dystonic changes of the right adductor kermit. 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 RECOMMENDATIONS: I have asked him to discontinue gabapentin. We will trial him on Lyrica 100 mg pills, one pill b.i.d. as tolerated, and to proceed with a right obturator nerve injection under fluoroscopic guidance using a nerve stimulator. I have gone over the details of the procedure with the patient. All his questions answered. He agrees to proceed with the outlined plan. As part of providing excellent, safe, comprehensive care, the following was completed at our patient's visit: 1. A medication reconciliation and review to ensure accurate knowledge of current/active medications, including asking our patients to inform us about any [id number] medications or herbal remedies/nutritional supplements/alternative remedies. 2. A review to specifically ensure our patients have had annual screening for: elevated body mass index (BMI, see intake chart for exact total), tobacco use, screening for depression, and screening for unhealthy alcohol use. When screening is concerning, patients are provided with education and the specific recommendation to discuss the concerning health issue and treatment options with their primary care provider. ASHLEY
== END 2024-06-26 13:41 | disposition home or self-care (01) ==
LOC: PM 13:40
PROVIDERS: PCP Family Medicine; Visit Provider Anesthesiology Pain Medicine
DX: G58.8 Other specified mononeuropathies (principal)
CPT/HCPCS: G0463

== ENCOUNTER 2024-07-10 07:27 | Day surgery (SDC) | payer MEDICARE, SELFPAY ==
--- NOTE | 2024-07-10 | PCN_ITS ---
PROCEDURE DATE: 07/10/2024 PROCEDURE: Right obturator nerve injection under fluoroscopic guidance using a nerve stimulator. PREOPERATIVE DIAGNOSIS: Pain secondary to right obturator nerve neuritis. POSTOPERATIVE DIAGNOSIS: Pain secondary to right obturator nerve neuritis. SOLUTION USED FOR INJECTION: 2 mL of 1% lidocaine, 2 mL of 0.25% Marcaine, 20 mg of Depo-Medrol total of 5 mL, and 2 mL used for the injection. Omnipaque dye used to confirm needle tip placement. IMMEDIATE COMPLICATIONS: None. PROCEDURE: After informed consent was obtained from the patient, brought to the OR, placed in the supine position. Skin overlying the area at the junction of the middle one-third and the upper one-third of the thigh was used for access point. After anesthetizing the skin, we introduced the Stimuplex needle, directed towards the right obturator nerve. After having positive nerve stimulation, no intraneural needle tip placement or intravascular needle tip placement by injection of Omnipaque dye, we injected 2 mL of the injectate. Post procedure, needle was removed. Patient reports 0/10 pain post procedurally. MTDD
[2024-07-10 07:30] VITALS: BP 121/78; PULSE 62; TEMP 37.1; O2SAT 97
--- OUTSIDE RECORDS SUMMARY | 2024-07-10 07:32 | XMS_ITS | CCD ---
Author Organization [facility] Care Team Providers Care Electrical Engineer Mep Name Role Phone SIMONE RUIZ Admitting Unavailable SIMONE RUIZ Attending Unavailable ISHMAEL SIMON Referring Unavailable ISHMAEL SIMON Primary Care Unavailable JEY ELISE Attending Unavailable JEY ELISE R Surgeon Unavailable NC Procedure Practitioner Unavailab ISHMAEL Campoverde Primary Care [...] Alfred, Dr. Ishmael Vallejo Referring Unavai lable Trabisis, Dr. Armstrong Attending Unavaila ble NADJANEE, DR ISHMAEL Rae Primary Care Unavailable IBARRA ., DR RICKY Bateman Attending Unavailable IBARRA ., DR RICKY Bateman Consulting Unavailable IBARRA ., DR RICKY Bateman Admitting Unavailable LAKSHMIPATHY ., WILDER Admitting Anupama vailable LAKSHMIPATHY ., WILDER Attending Anupmaa vailable LAKSHMIPATHY ., WILDER Consulting Anupama vailable ALFRED, DR ISHMAEL Rae Primary Care Unavailable IBARRA ., DR RICKY Bateman Admitting Unavailable IBARRA ., DR RICKY Bateman Attending Unavailable COLMENARES ., YOLA Consulting Unavailable NADERER, DR ISHMAEL Rae Primary [...] Admitting Unavailable COLMENARES ., YOLA Attending Unavailable ZIEBTIRSO, DR FLEX Hunt Consulting [...] NADJANEE, DR ISHMAEL Rae Primary Care Unavailable NADEREMarilee, [...] Alfred LANE, Ishmael Vallejo Primary Care Provider [place] SPORTS INFORMATION DIRECTOR-RADIOGRAPHER CARDIAC CATHETERIZATION, Naima E Unavailable Alfred LANE, Ishmael Primary Care Provider Alfred LANE, Ishmael Primary Care Provider Rubio ADOPTION COUNSELOR-C, Danielle Priest Attending Provider [phone] Danielle Bergeron Attending Unavailable Naderer, Ishmael Primary Care Unavailable Danielle Bergeron Admitting Unavailable Danielle Bergeron Attending Unavailable Naderemarilee, Ishmael Primary Care Unavailable Danielle Bergeron Admitting Unavailable Amy LANE, Jong Villalobos Attending Unavailable Amador Son MD Unavailable [phone] NAIMA WRIGHT E Referring Unavaila ble NADERER, ISHMAEL WOODARDONY Primary Care Unavailabl e SON, AMADOR N Referring Unavailable NADERER, ISHMAEL SY Primary Care Unavailabl e ANA M KUMARI Referring Unavailable NADERER, ISHMAEL WOODARDONY Primary Care Unavailabl e ANA M KUMARI Referring Unavailable NADERER, ISHMAEL SY Primary Care Unavailabl e SON, AMADOR N Referring Unavailable NADERER, ISHMAEL SY Primary Care Unavailabl e SON, AMADOR N Referring Unavailable NADERER, ISHMAEL SY Primary Care Unavailabl e EARL WRIGHTCI E Referring Unavaila ble NADERER, ISHMAEL WOODARDONY Primary Care Unavailabl e NADERER, ISHMAEL Attending Unavailable NADERER, ISHMAEL Attending Unavailable NADERER, ISHMAEL Attending Unavailable NADERER, ISHMAEL Attending Unavailable NADERER, ISHMAEL Attending Unavailable TRABISIS, VALENTINO Attending Unavailable NADERER, ISHMAEL WOODARDONY Primary Care Unavailabl e TRABOULHOMEI, MOURHAF Referring Unavailable NADERER, ISHMAEL SY Primary Care Unavailabl e SON, AMADOR N Attending Unavailable NADERER, ISHMAEL SY Primary Care Unavailabl e TRABOULSSI, MOURHAF Referring Unavailable SON, AMADOR N Attending Unavailable NADERER, ISHMAEL WOODARDONY Primary Care Unavailabl e NADERER, ISHMAEL SY Primary Care Unavailabl e MCKENNA NAIMA E Attending Unavaila ble NADERER, ISHMAEL WOODARDONY Primary Care Unavailabl e TRABOULSSI, MOURHAF Attending Unavailable TRABOULNIC, MOURHAF Referring Unavailable NADERER, ISHMAEL SY Primary Care Unavailabl e SON, AMADOR N Attending Unavailable NAIMA WRIGHT Referring Unavaila ISHMAEL Dukes Primary Care VALENTINO Akins Attending Unavailable VALENTINO TY Referring Unavailable ISHMAEL SIMON Primary Care Ishmael North MD Primary Care Provider Ishmael Simon MD Primary Care Provider [phone] Medications Current Medications Medication Drug Class(es) Dates Sig (Normalized) Sig (Original) acetaminophen 325 mg oral tablet (1 source) Start: 08-05-2023 take 1 tablet by mouth every four hours as needed acetaminophen (Tylenol) tablet 650 mg acetaminophen 325 mg / oxyCODONE hydrochloride 7.5 mg oral tablet (20 sources) Opioid Agonist Start: 12-01-2023 End: 07-26-2024 take 1 tablet by mouth four times daily as needed for pain oxyCODONE-acetaminop hen (Percocet) 7.5-325 MG tablet Indications: Degeneration of lumbar intervertebral disc Take 1 tablet by mouth 4 (four) times a day as needed for severe pain or moderate pain 120 tablet 06/26/2024 07/26/2024 Active Start: 03-30-2021 take 1 tablet by mindi th four times daily as needed oxyCODONE-Acetaminophen 7.5-325 MG Oral Tablet TAKE 1 TABLET BY MOUTH FOUR TIMES A DAY NEEDED Quantity: 120 Refills: 0 Ordered: 01-Apr-2021 DO Start : 30-Mar-2021 Active Start: 08-16-2019 oxyCODONE-acet aminophen (PERCOCET) 7.5-325 mg per tablet 08/16/2019 Active Start: 06-22-2018 take 1 tablet by [...] 19, 2018 12:00am June 22, 2018 9:37am [id number] 200 actuat albuterol 0.09 mg/actuat metered dose [...] BY MOUTH TWICE A DAY 01/27/2023 Active take 1 tablet by mouth three greta es daily baclofen (LIORESAL) 10 mg tablet Take 1 tablet (10 mg total) by mouth 3 (three) times a day. Active cetirizine hydrochloride 10 mg oral tablet (20 sources) Histamine-1 Receptor Antagonist Start: 08-15-2019 take 1 tablet by mouth once daily cetirizine (ZyrTEC) 10 MG tablet Indications: Allergic rhinitis due to pollen TAKE 1 TABLET BY MOUTH EVERY DAY 90 tablet 3 11/28/2023 Active cholecalciferol 0.05 mg oral tablet (7 sources) Vitamin D Start: 07-23-2019 End: 12-07-2023 take 1 tablet by mouth once daily cholecalciferol, vitamin D3, 2,000 units tablet Take 1 tablet by mouth daily. 07/23/2019 12/07/2023 Discontinued Start: 07-06-2019 take 1 tablet by mindi th before mealtime Cholecalciferol (Vitamin D3) 50 mcg (2,000 unit) tablet Active 50 MCG PO Before meals July 06, 2019 12:00am take 1 capsule by mo uth once daily Vitamin D 50 MCG (2000 UT) Oral [...] hyperglycemia, without long-term current use of insulin ([facility]) Inject 0.75 mg under the skin 1 (one) time per week 2 mL 5 04/24/2024 06/06/2024 Discontinued 2 ml dupilumab 150 mg/ml auto-injector (1 source) Interleukin-4 Receptor alpha Antagonist Start: 06-17-2022 End: 12-07-2023 DUPIXENT PEN 300 mg/2 mL pen injector SUBQ injection pen Inject under the skin. 1 Injection every 2 weeks. 06/17/2022 12/07/2023 Discontinued 30 actuat fluticasone furoate 0.1 mg/actuat / umeclidinium 0.0625 mg/actuat / vilanterol 0.025 mg/actuat dry powder inhaler (20 sources) Anticholinergic, Corticosteroid, beta2-Adrenergic Agonist Start: 08-17-2019 TRELEGY ELLIPTA 100-62.5-25 mcg blister with device 08/17/2019 Active Start: 07-06-2019 Fluticasone-Um eclidin-Vilanter (Trelegy Ellipta) 100-62.5-25 mcg blister with device Active 1 MCG INHALATION As Directed July 06, 2019 12:00am take 1 dose by inhalation in the morning Ckhxxabskzk-Phiuynxxd-Ltbtdo (Trelegy Ellipta) 100-62.5-25 MCG/ACT aerosol powder Inhale 1 Dose in the morning. Active fluticasone-umec lidin-vilanter (TRELEGY-ELLIPTA) 100-62.5-25 mcg blister with device Inhale 1 puff. Use as directed Active furosemide 40 mg oral tablet (20 sources) Loop Diuretic Start: 06-18-2024 take 1 tablet by mouth at bedtime furosemide (Lasix) 40 MG tablet Indications: Chronic diastolic heart failure (CMS/HCC) TAKE 1 TABLET (40 MG) BY MOUTH IN THE MORNING AND AT BEDTIME 180 tablet 3 06/18/2024 Active Start: 06-23-2018 take 1 tablet by mindi th twice daily furosemide (LASIX) 40 mg tablet Take 1 tablet (40 mg total) by mouth 2 (two) times a day. 07/11/2019 Active Start: 06-19-2018 End: 06-23-2018 take 1 [...] AT BEDTIME 30 capsule 2 02/03/2024 Active ibuprofen 200 mg oral tablet (3 sources) Nonsteroidal Anti-inflammatory Drug take 1 tablet by mouth every six hours as needed for pain ibuprofen (ADVIL,MOTRIN) 200 mg tablet Take 1 tablet (200 mg total) by mouth every 6 (six) hours as needed for pain. Active montelukast 10 mg oral tablet (20 sources) Leukotriene Receptor Antagonist Start: 07-06-2019 montelukast (SINGULAIR) 10 mg tablet 08/12/2019 Active nabumetone 500 mg oral tablet (20 sources) [...] capsule (20 sources) Proton Pump Inhibitor Start: 08-12-2019 take 1 capsule by mouth once daily omeprazole (PriLOSEC) [address] capsule Indications: Alcoholic gastritis without bleeding , Alcoholic gastritis TAKE 1 CAPSULE BY MOUTH EVERY DAY 90 capsule 1 06/04/2024 Active Start: 06-19-2018 take 1 tablet by [...] mg tablet Indications: Peripheral vascular disease, unspecified ([facility]-H[facility]) , Hyperlipidemia, unspecified hyperlipidemia type Take 1 tablet (10 mg) by mouth once daily. 90 tablet 3 06/13/2024 06/13/2025 Active 0.25 mg, 0.5 mg dose 1.5 ml semaglutide 1.34 mg/ml pen injector (3 sources) Start: 04-24-2024 semaglutide (O zempic, 0.25 or 0.5 MG/DOSE,) 2 MG/1.5ML solution pen-injector Indications: Type 2 diabetes mellitus with hyperglycemia, without long-term current use of insulin ([facility]) 0.25 mg SC weekly x 4 weeks, then 0.5 mg weekly 1 each 5 04/24/2024 Active Start: 04-24-2024 semaglutide (O zempic, 0.25 or 0.5 MG/DOSE,) 2 MG/1.5ML solution pen-injector Indications: Type 2 diabetes mellitus with hyperglycemia, without long-term current use of insulin ([facility]/HCC) 0.25 mg SC weekly x 4 weeks, then 0.5 mg weekly 1 each 5 04/24/2024 Active Start: 04-24-2024 semaglutide (O zempic, 0.25 or 0.5 MG/DOSE,) 2 MG/1.5ML solution pen-injector Indications: Type 2 diabetes mellitus with hyperglycemia, without long-term current use of insulin ([facility]/HCC) 0.25 mg SC weekly x 4 weeks, then 0.5 mg weekly 1 each 5 04/24/2024 Active spironolactone 100 mg oral tablet (20 sources) Aldosterone Antagonist Start: 04-09-2024 take 1 tablet by mouth once daily spironolactone (Aldactone) 100 MG tablet Indications: Essential hypertension, benign ([facility]/HCC) TAKE 1 TABLET BY MOUTH EVERY DAY 90 tablet 5 04/09/2024 Active Start: 08-12-2019 take 1 tablet by mindi th in the morning spironolactone (ALDACTONE) 50 mg tablet Take 1 tablet (50 mg total) by mouth in the morning. 08/12/2019 Active Start: 06-23-2018 Spironolactone (Aldactone) 50 mg [...] 1 capsule by inhalation once daily Tiotropium [place] (Spiriva With Handihaler) 18 mcg capsule, w/inhalation [...] Coronary arteriosclerosis; Translations: [Atherosclerotic heart disease of [place] coronary artery without angina pectoris] Onset: 06-13-2024 [...] Chronic Other nutritional; endocrine; and metabolic disorders (17 sources) Severe obesity; Translations: [Class 2 severe obesity due to excess calories with serious comorbidity and body mass index (BMI) of 37.0 to 37.9 in adult (CMS/[facility])] Onset: 04-13-2023 04-24-2024 Chronic Other nutritional; endocrine; [...] of mental health and substance abuse codes (4 sources) Ex-smoker; Translations: [Personal history of nicotine [...] Classification Problem Date Documented Date Episodic/Chronic Abdominal hernia (1 source) Left inguinal hernia ; Translations: [Unilateral inguinal hernia, without obstruction or gangrene, not specified as recurrent] 12-07-2023 Episodic Administrative/social admission (7 sources) Patient encounter status; [...] Cmte Inflammatory conditions of male genital organs (20 sources) Prostatitis; Translations: [Inflammatory disease of prostate, unspecified] Onset: 02-06-2024 02-06-2024 Episodic Malaise and fatigue (18 sources) Fatigue; Translations: [Other fatigue] Onset: 07-22-2023 07-22-2023 Episodic Mood disorders (12 sources) Mood disorders Onset: 04-24-2024 04-24-2024 Other aftercare (1 source) Other penitentiary (current) drug therapy; Translations: [OTH JAIL CURRENT DRUG THERAPY] Onset: 05-13-2022 Episodic Other aftercare (20 sources) Long-term current use of drug therapy; Translations: [Other termite renewal inspector (current) drug therapy] Onset: 04-13-2023 04-13-2023 Episodic Other connective tissue disease (1 source) Other muscle spasm; Translations: [OTHER MUSCLE SPASM] Onset: 05-13-2022 Episodic Other connective tissue disease (1 source) Pain in right lower limb; Translations: [Pain in right leg] 12-07-2023 Episodic Other lower respiratory disease (20 sources) [...] [Nasal polyp, unspecified] Onset: 04-13-2023 04-13-2023 Episodic Residual codes; unclassified (1 source) Tobacco user; Translations: [Tobacco use] 12-07-2023 Episodic Unclassified (1 source) CONTACT W/AND (SUSP) EXPOS COVID-19; Translations: [CONTACT W/AND (SUSP) EXPOS COVID-19] Onset: 04-12-2022 Unclassified (14 sources) Onset: 07-13-2023 Resolved: 06-13-2024 07-13-2023 Results Test Name Value Interpretation Reference Range Facility ALL BASIC METABOLIC PANELon 06-14-2024 Anion gap [Moles/Vol] 13 mmol/L [facility] Calcium [Mass/Vol] 9.2 mg/dL 8.5 - 10. 1 mg/dL [facility] Chloride [Moles/Vol] 100 mmol/L 98 - 10 7 mmol/L [facility] CO2 [Moles/Vol] 29.3 mmol/L 21.0 - 32.0 mmol/L [facility] Creatinine [Mass/Vol] 1.2 mg/dL 0.70 - 1.30 mg/dL [facility] GFR/1.73 sq M.predicted CKD-EPI (S/P/Bld) [Vol rate/Area] >60 >=60 mL/min/1.73m 2 [facility] Glucose [Mass/Vol] 118 mg/dL High 74 - 106 mg/dL [facility] Potassium [Moles/Vol] 4.3 mmol/L 3.5 - 5.1 mmol/L [facility] Sodium [Moles/Vol] 138 mmol/L 136 - 145 mmol/L [facility] TBH EGFR-NON AF CHINESE >60 >=60 mL/min/1.73m 2 [facility] Urea nitrogen [Mass/Vol] 18 mg/dL 7.0 - 18.0 mg/dL [facility] Urea nitrogen/Creatinine [Mass ratio] 15 mg/mg [facility] ALL LIPID PROFILE (FASTING)o n 06-14-2024 CHOL HDL RATIO 5.8 [facility] Comment on above: 3.3 - 4.4 LOW RISK 4.4 - 7.1 AVERAGE RISK 7.1 - 11.0 MODERATE RISK >11.0 HIGH RISK Cholesterol [Mass/Vol] 265 mg/dL High NINF - 200 mg/dL [facility] Cholesterol in HDL [Mass/Vol] 46 mg/dL 40 - 60 mg/dL [facility] Comment on above: > or =60 mg/dl - LOW CARDIOVASCULAR RISK <40 mg/dl - HIGH CARDIOVASCULAR RISK Magnesium [Mass/Vol] 159 mg/dL [facility] Comment on above: <100 mg/dl OPTIMAL 100-129 mg/dl NEAR OR ABOVE OPTIMAL 130-159 mg/dl BORDERLINE HIGH 160-189 mg/dl HIGH >190 mg/dl VERY HIGH Magnesium [Mass/Vol] 60.6 mg/dL [facility] Triglyceride [Mass/Vol] 303 mg/dL High NINF - 150 mg/dL [facility] Mario 06-14-2024 ALT [Catalytic activity/Vol] 36 U/L 16 - 63 U/L [facility] Isaura 06-14-2024 AST [Catalytic activity/Vol] U/L Low 15 - 37 U/L [facility] No Panel Informationon 06-14 Interpretation and review of laboratory results Abnormal [facility] EPITHELIAL CELLSon Epithelial cells LM Ql (Urine sed) Epithelial Cells Few [facility] No Panel Informationon 05-29 [facility] RESULT 1on 05-29-2024 RESULT 1 Result 1 Moderate number of gram positive cocci. [facility] RESULT 2on 05-29-2024 RESULT 2 Result 2 Few gram negative rods. [facility] RESULT 3on 05-29-2024 RESULT 3 Result 3 ADOPTION COUNSELOR [facility] RESULT 4on 05-29-2024 RESULT 4 Result 4 ADOPTION COUNSELOR [facility] WHITE BLOOD CELLSon 05-29-19 25 WHITE BLOOD CELLS White Blood Cells [facility] WHITE BLOOD CELLS Few [facility] Cardiac Device Check - In Cl inicon 05-23-2024 [facility] Work Phone: Radiology Study observation (narrative) [facility] Work Phone: ECG 12 lead (Clinic Performe d)on 05-23-2024 EKG performed today shows atrial paced rhythm at rate of 74 bpm QRS ration 100 ms QT corrected 448 ms. Rhythm strip shows the same pattern. [facility] Work Phone: [facility] Work Phone: MLR HEMOGLOBIN A1Con 024 Glucose [Mass/Vol] 131 mg/dL [facility] HbA1c (Bld) [Mass fraction] 6.2 % 4.5 - 6.2 % [facility] Comment on above: ADA RECOMMENDED LIMI T 4.0 - 6.0 ADA THERAPEUTIC TARGET < 7.0 ACTION SUGGESTED > 7.0 [facility] Magnetic resonance imaging r eportOrdered By: Germán Murphy on 03-27-2024 Study report [facility] [place] [address] MRI Report Signed Patient: Liliana Michaels JR MR#: Echo [id number] : 1965 Acct:[id number] Age/Sex: 59 / M ADM Date: 4 Loc: MR Room: Type: [facility] Attending Dr: Danielle GAYTAN Copies to: LUKAS Burns~ Ordering Provider: LUKAS Burns Date of Service: 03/27/24 MR/MR lumbar spine wo con: LUMBAR DDD ([id number]) XR/XR pre/post mri xray: LUMBAR DDD MRI [...] Murphy Jr., D.O.03/27/2024 11:57 AM Dictation Location: [place] [address] Transcribed By: [facility] 03/27/24 1157 Dictated By: Germán Murphy Jr, DO 03/27/24 1148 Signed By: 03/27/24 1157 [facility] XR pre/post mri xrayon 03-27 XR pre/post mri xray [facility] Main [place] [address] [place] [address] MRI Report Signed Patient: BrandoLiliana JR MR#: [id number] : 1965 Acct:[id number] Age/Sex: 59 / M ADM Date: 03/27/24 Loc: Room: Type: [facility] Attending Dr: Danielle GAYATN Copies to: LUKAS Burns Ordering Provider: LUKAS Burns Date of Service: 03/27/24 MR/MR lumbar spine wo con: LUMBAR DDD ([id number]) XR/XR pre/post mri xray: LUMBAR DDD MRI [...] Murphy Jr., D.O.03/27/2024 11:57 AM Dictation Location: RADIO-PC-22 Transcribed By: [facility] 03/27/24 1157 Dictated By: Germán Murphy Jr, DO 03/27/24 1148 Signed By: 03/27/24 1157 Normal [facility] XR chest 2V*on 03-16-2024 XR chest 2V* [facility] Main [place] [address] [place] [address] XRay Report Signed Patient: Liliana Michaels JR MR#: [id number] : 1965 Acct:[id number] Age/Sex: 59 / M ADM Date: 03/16/24 Loc: [facility] Room: Type: [facility] Attending Dr: Danielle GAYTAN Copies [...] Elia Rodrigez M.D.03/16/2024 8:54 AM Dictation Location: RADIO-PC-16 Transcribed By: [facility] 03/16/24 0854 Dictated By: Elia Rodrigez DO 03/16/24 0849 Signed By: 03/16/24 0854 Normal [facility] Cardiac Device Check - Remot neeta 02-14-2024 [facility] Work Phone: Radiology Study observation (narrative) [facility] Work Phone: TBH UA (CLEAN/CATCH) MICROSC OPIC IF INDICATEon 02-06-2024 BILIRUBIN URINE Negative NEGATIVE [facility] BLOOD URINE TRACE-I NEGATIVE [facility] Clarity (U) SL CLOUDY CLEAR [facility] Color (U) LT. YELLOW YELLOW [facility] GLUCOSE URINE UA Negative NEGATIVE mg/dL [facility] Interpretation and review of laboratory results Abnormal [facility] Ketones Ql (U) Negative NEGATIVE mg/dL [facility] Leukocyte esterase Test strip Ql (U) LARGE Abnormal NEGATIVE [facility] NITRITE URINE Negative NEGATIVE [facility] pH (U) 6.0 [pH] 5.0 - 9.0 [facility] PROTEIN URINE Negative NEG/TRACE mg/dL [facility] SPECIFIC GRAVITY URINE 1.015 1.005 - 1.025 [facility] URINE MICROSCOPIC INDICATED YES [facility] UROBILINOGEN URINE 0.2 EU/dL 0.2 - 1.0 EU/dL [facility] XR CHEST 2 VIEWSon XR CHEST 2 VIEWS Interpreted By: Sancho Gross, STUDY: XR CHEST 2 VIEWS; 11/09/2023 9:46 am INDICATION: Signs/Symptoms:Pacem marilyn. COMPARISON: 08/05/2023 ACCESSION NUMBER(S): [id number] ORDERING CLINICIAN: ANA M KUMARI FINDINGS: Left-sided pacemaker in place. CARDIOMEDIASTINAL SILHOUETTE: Cardiomediastinal silhouette is normal in size and configuration. LUNGS: Lungs are clear. ABDOMEN: No remarkable upper abdominal findings. BONES: No acute osseous changes. IMPRESSION: 1. No evidence of acute cardiopulmonary process. MACRO: None Signed by: Sancho Gross 11/10/2023 8:35 AM Dictation workstation: [id number] [facility] Comment on above: Order Comment: Repor t to [facility] registration on 11/09/2023 at 8:30 AM for chest x-ray and device check prior to appointment with Dr. Son at 10 AM Cardiac Device Check - Remot neeta 09-26-2023 [facility] Work Phone: Radiology Study observation (narrative) [facility] Work Phone: US.doppler Upper extremity v hazel matthew 08-10-2023 Exam negative for acute deep venous thrombosis in the left upper extremity MACRO: None Signed by: Simone Ramos 08/10/2023 3:07 PM Dictation workstation: [id number] Interpreted By: Simone Ramos, STUDY: [facility] US UPPER EXTREMITY VENOUS DUPLEX LEFT; 08/10/2023 2:47 pm INDICATION: Signs/Symptoms: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 COMPARISON: Portable chest 05 August 2023 ACCESSION NUMBER(S): [id number] ORDERING CLINICIAN: NAIMA WRIGHT TECHNIQUE: Vascular ultrasound [...] - 08/10/2023 Interpreted By: Simone Ramos, STUDY: [facility] US UPPER EXTREMITY VENOUS DUPLEX LEFT; 08/10/2023 2:47 pm INDICATION: Signs/Symptoms: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 COMPARISON: Portable chest 05 August 2023 ACCESSION NUMBER(S): [id number] ORDERING CLINICIAN: NAIMA WRIGHT TECHNIQUE: Vascular ultrasound [...] Simone Ramos 08/10/2023 3:07 PM Dictation workstation: [id number] [facility] Work Phone: Radiology Study observation (narrative) [facility] Work Phone: US.doppler Upper extremity v ein - leftOrdered By: Simone Ramos on 08-10-2023 [facility] Work Phone: VAS US UPPER EXTREMITY VENO US DUPLEX LEFTon 08-10-2023 [facility] US UPPER EXTREMITY VENOUS DUPLEX LEFT Interpreted By: Simone Ramos, STUDY: [facility] US UPPER EXTREMITY VENOUS DUPLEX LEFT; 08/10/2023 2:47 pm INDICATION: Signs/Symptoms: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 COMPARISON: Portable chest 05 August 2023 ACCESSION NUMBER(S): [id number] ORDERING CLINICIAN: NAIMA WRIGHT TECHNIQUE: Vascular ultrasound [...] Simone Ramos 08/10/2023 3:07 PM Dictation workstation: [id number] [facility] Basic metabolic 2000 panelon 08-05-2023 Anion gap [Moles/Vol] 12 mmol/L 10 - 2 0 mmol/L [facility] Calcium [Mass/Vol] 9.6 mg/dL 8.6 - 10. 3 mg/dL [facility] Chloride [Moles/Vol] 102 mmol/L 98 - 10 7 mmol/L [facility] CO2 [Moles/Vol] 29 mmol/L 21 - 32 mmol/L [facility] Creatinine [Mass/Vol] 1.12 mg/dL 0.50 - 1.30 mg/dL [facility] GFR/1.73 sq M.predicted among non-blacks MDRD (S/P/Bld) [Vol rate/Area] 76 mL/min/{1.73_m2} - PINF [facility] Comment on above: Calculations of yang mated GFR are performed using the 2020 CKD-EPI Study Refit equation without the race variable for the IDMS-Traceable creatinine methods. https://jasn.asnjournals.org/content//ASN.2020 672726 Glucose [Mass/Vol] 95 mg/dL 74 - 99 mg/dL [facility] Interpretation and review of laboratory results Normal [facility] Potassium [Moles/Vol] 4.0 mmol/L 3.5 - 5.3 mmol/L [facility] Sodium [Moles/Vol] 139 mmol/L 136 - 145 mmol/L [facility] Urea nitrogen [Mass/Vol] 17 mg/dL 6 - 23 mg/dL [facility] Anion gap [Moles/Vol] 12 mmol/L Normal 10-20 [facility] Comment on above: Performed By: #### 2 4321-2 #### JAIMEE QURESHI ([id number]) [facility] ([facility]) [address] [place] [id number] Calcium [Mass/Vol] 9.6 mg/dL Normal 8.6-10.3 [facility] Comment on above: Performed By: #### 2 4321-2 #### JAIMEE QURESHI ([id number]) [facility] ([facility]) [address] [place] [address] Chloride [Moles/Vol] 102 mmol/L Normal 98-107 [facility] Comment on above: Performed By: #### 2 4321-2 #### JAIMEE QURESHI ([id number]) [facility] ([facility]) [address] [place] [address] CO2 [Moles/Vol] 29 mmol/L Normal 21-32 [facility] Comment on above: Performed By: #### 2 4321-2 #### JAIMEE QURESHI ([id number]) [facility] ([facility]) [address] [place] [address] Creatinine [Mass/Vol] 1.12 mg/dL Normal 0.50-1.30 [facility] Comment on above: Performed By: #### 2 4321-2 #### JAIMEE QURESHI ([id number]) [facility] ([facility]) [address] [place] [address] Glomerular filtration rate/1.73 sq M.predicted 76 mL/min/1.73m*2 Normal >60 [facility] Comment on above: Result Comment: Calc ulations of estimated GFR are performed using the 2020 CKD-EPI Study Refit equation without the race variable for the IDMS-Traceable creatinine methods. https://jasn.asnjournals.org/content/early//ASN.2020 059540 Performed By: #### 2 4321-2 #### JAIMEE QURESHI ([id number]) [facility] ([facility]) [address] [place] [address] 04361 Glucose [Mass/Vol] 95 mg/dL Normal 74-99 [facility] Comment on above: Performed By: #### 2 4321-2 #### JAIMEE QURESHI ([id number]) [facility] ([facility]) [address] [place] [address] 70715 Potassium [Moles/Vol] 4.0 mmol/L Normal 3.5-5.3 [facility] Comment on above: Performed By: #### 2 4321-2 #### JAIMEE QURESHI (06858) [facility] ([facility]) [address] [place] [address] 21538 Sodium [Moles/Vol] 139 mmol/L Normal 136-145 [facility] Comment on above: Performed By: #### 2 4321-2 #### GRISELDAIBDEION QURESHI (33531) [facility] ([facility]) [address] [place] [address] 95486 Urea nitrogen [Mass/Vol] 17 mg/dL Normal 6-23 [facility] Comment on above: Performed By: #### 2 4321-2 #### JAIMEE QURESHI ([id number]) [facility] ([facility]) [address] [place] [address] 42131 CBC panel Auto (Bld)on 08-04 Erythrocyte distribution width (RBC) [Ratio] 13.0 % 11.5 - 14.5 % [facility] Hematocrit (Bld) [Volume fraction] 46.9 % 41.0 - 52.0 % [facility] Hemoglobin (Bld) [Mass/Vol] 16.1 g/dL 13.5 - 17.5 g/dL [facility] Interpretation and review of laboratory results Normal [facility] MCH (RBC) [Entitic mass] 31.5 pg 26.0 - 34.0 pg [facility] MCHC (RBC) [Mass/Vol] 34.3 g/dL 32.0 - 36.0 g/dL [facility] MCV (RBC) [Entitic vol] 92 fL 80 - 100 fL [facility] Nucleated RBC/100 WBC (Bld) [Ratio] 0.0 % [facility] Platelets (Bld) [#/Vol] 279 10*3/uL [facility] RBC (Bld) [#/Vol] 5.11 10*6/uL [facility] WBC (Bld) [#/Vol] 8.9 10*3/uL [facility] Erythrocyte distribution width (RBC) [Ratio] 13.0 % Normal 11.5-14.5 [facility] Comment on above: Performed By: #### 5 8410-2 #### JAIMEE QURESHI (60061) [facility] ([facility]) [address] [place] [address] 85253 Hematocrit (Bld) [Volume fraction] 46.9 % Normal 41.0-52.0 [facility] Comment on above: Performed By: #### 5 8410-2 #### JAIMEE QURESHI (49285) [facility] ([facility]) [address] [place] [address] 16997 Hemoglobin (Bld) [Mass/Vol] 16.1 g/dL Normal 13.5-17.5 [facility] Comment on above: Performed By: #### 5 8410-2 #### JAIMEE QURESHI (57943) [facility] ([facility]) [address] [place] [address] 63103 MCH (RBC) [Entitic mass] 31.5 pg Normal 26.0-34.0 [facility] Comment on above: Performed By: #### 5 8410-2 #### JAIMEE QURESHI ([id number]) [facility] ([facility]) [address] [place] [address] 21189 MCHC (RBC) [Mass/Vol] 34.3 g/dL Normal 32.0-36.0 [facility] Comment on above: Performed By: #### 5 8410-2 #### JAIMEE QURESHI (74457) [facility] ([facility]) [address] [place] [address] 46598 MCV (RBC) [Entitic vol] 92 fL Normal 80-100 U [facility] Comment on above: Performed By: #### 5 8410-2 #### JAIMEE QURESHI ([id number]) [facility] ([facility]) [address] [place] [address] 19213 Nucleated RBC/100 WBC (Bld) [Ratio] 0.0 /100 WBCs Normal 0.0-0.0 [facility] Comment on above: Performed By: #### 5 8410-2 #### JAIMEE QURESHI (20752) [facility] ([facility]) [address] [place] [address] 57677 Platelets (Bld) [#/Vol] 279 x10*3/uL Normal 150-450 [facility] Comment on above: Performed By: #### 5 8410-2 #### JAIMEE QURESHI (74328) [facility] ([facility]) [address] [place] [address] 64884 RBC (Bld) [#/Vol] 5.11 x10*6/uL Normal 4.50-5.90 [facility] Comment on above: Performed By: #### 5 10-2 #### JAIMEE QURESHI (40625) [facility] ([facility]) [address] [place] [address] 05846 WBC (Bld) [#/Vol] 8.9 x10*3/uL Normal 4.4-11.3 [facility] Comment on above: Performed By: #### 5 8410-2 #### JAIMEE QURESHI (58805) [facility] ([facility]) [address] [place] [address] 07883 Electrophysiology studyon [facility] Work Phone: PT and aPTT panel Coag (PPP) on 08-05-2023 aPTT Coag (PPP) [Time] 34 s [facility] INR Coag (PPP) [Relative time] 1.0 {INR} 0.9 - 1.1 [facility] Interpretation and review of laboratory results Normal [facility] PT Coag (PPP) [Time] 11.0 s [facility] The APTT is no longer used for monitoring Unfractionated Heparin Therapy. For monitoring Heparin Therapy, use the Heparin Assay. [facility] aPTT Coag (PPP) [Time] 34 s Normal 27-38 [facility] Comment on above: Order Comment: The A PTT is no longer used for monitoring Unfractionated Heparin Therapy. For monitoring Heparin Therapy, use the Heparin Assay. Performed By: #### 3 4529-8 #### JAIMEE QURESHI ([id number]) [facility] ([facility]) [address] [place] [address] 12727 INR Coag (PPP) [Relative time] 1.0 Normal 0.9-1.1 [facility] Comment on above: Order Comment: The A PTT is no longer used for monitoring Unfractionated Heparin Therapy. For monitoring Heparin Therapy, use the Heparin Assay. Performed By: #### 3 4529-8 #### JAIMEE QURESHI (47046) [facility] ([facility]) [address] [place] [address] 32166 PT Coag (PPP) [Time] 11.0 s Normal 9.8-12.8 [facility] Comment on above: Order Comment: The A PTT is no longer used for monitoring Unfractionated Heparin Therapy. For monitoring Heparin Therapy, use the Heparin Assay. Performed By: #### 3 4529-8 #### JAIMEE QURESHI ([id number]) [facility] ([facility]) [address] [place] [address] 92361 TRANSTHORACIC ECHO (TTE) COM PLETEon 08-05-2023 TRANSTHORACIC ECHO (TTE) COMPLETE [address] [address] TRANSTHORACIC ECHOCARDIOGRAM REPORT Patient Name: LILIANA MICHAELS Reading Physician: [id number] Batsheva Morris MD, [facility] Study Date: 08/05/2023 Ordering Provider: [id number] ANA M ANGEL MRN/PID: [id number] Fellow: Nurse: Date of /Age: 10 1965 Osteopathic Neurologist: Eli Pisano RDGRACY Gender: M Additional Staff: Height: 162.56 cm Admit Date: Weight: 90.72 kg Admission Status: Outpatient BSA / BMI: 1.96 m2 / 34.33 Department Location: [place] [address] Echo Lab Blood Pressure: 128 /73 mmHg Study Type: TRANSTHORACIC ECHO (TTE) COMPLETE Diagnosis/ICD: Bradycardia, unspecified-R00.1 Indication: Abnormal EKG, Pre-EP CPT Codes: Echo Complete w Full Doppler-95169 Study Detail: The following Echo studies were [...] LA Area A2C: 18.9 cm2 LA [place] A4C: 5.8 cm LA [place] A2C: 5.5 cm LA Volume Index: 27.0 [...] 1.3 m/s (0.6-0.9m/s) PV Max P.6 mmHg [id number] Batsheva Morris MD, [facility] Electronically signed on 08/05/2023 at 2:30:14 PM Final [facility] US Heart TransthoracicOrdere d By: Batsheva Morris on 08-05-2023 Aortic Valve Area by Continuity of Peak Velocity 2.42 cm2 [facility] Work Phone: Aortic Valve Area by Continuity of VTI 2.62 cm2 [facility] Work Phone: [phone] AV mn grad 4.0 mmHg [facility] Work Phone: [phone] AV pk grad 8.2 mmHg [facility] Work Phone: [phone] AV pk abiodun 1.43 m/s [facility] Work Phone: LA vol index A/L 29.3 ml/m2 [facility] Work Phone: LV A4C EF 62.4 [facility] Work Phone: LV biplane EF 60 % [facility] Work Phone: LVIDd 5.28 cm [facility] Work Phone: LVOT diam 2.00 cm [facility] Work Phone: MV avg E/e' ratio 7.78 [facility] Work Phone: [phone] MV E/A ratio 0.88 [facility] Work Phone: RV free wall pk S' 15.40 cm/s [facility] Work Phone: RVSP 23.4 mmHg [facility] Work Phone: Tricuspid annular plane systolic excursion 3.6 cm [facility] Work Phone: [facility] Work Phone: Heart Transthoracicon [place] [phone] TRANSTHORACIC ECHOCARDIOGRAM REPORT Patient Name: LILIANA Quiñones Physician: [id number] Batsheva Morris MD, [facility] Study Date: 08/05/2023 Ordering Provider: [id number] ANA M ANGEL MRN/PID: [id number] Fellow: Nurse: Date of /Age: 10 1965 Osteopathic Neurologist: Eli Pisano RDCS Gender: M Additional Staff: Height: 162.56 cm Admit Date: Weight: 90.72 kg Admission Status: Outpatient BSA / BMI: 1.96 m2 / 34.33 [facility] Blood Pressure: 128 /73 mmHg Study Type: TRANSTHORACIC ECHO (TTE) COMPLETE Diagnosis/ICD: Bradycardia, unspecified-R00.1 Indication: Abnormal EKG, Pre-EP CPT Codes: Echo Complete w Full Doppler-78227 Study Detail: The following Echo studies were [...] LA Area A2C: 18.9 cm2 [place] A4C: 5.8 cm [place] A2C: 5.5 cm LA Volume Index: 27.0 [...] not included)... Batsheva Alexander MD - 08/05/2023 [place] [address] TRANSTHORACIC ECHOCARDIOGRAM REPORT Patient Name: LILIANA Cem BRANDO Reading Physician: [id number] Batsheva Morris MD, [facility] Study Date: 08/05/2023 Ordering Provider: [id number] ANA M ANGEL MRN/PID: [id number] Fellow: Nurse: Date of /Age: 10 1965 Osteopathic Neurologist: Eli Pisano [facility] Gender: M Additional Staff: Height: 162.56 cm Admit Date: Weight: 90.72 kg Admission Status: Outpatient BSA / BMI: 1.96 m2 / 34.33 Department Location: [facility]/ Echo Lab Blood Pressure: 128 /73 mmHg Study Type: TRANSTHORACIC ECHO (TTE) COMPLETE Diagnosis/ICD: Bradycardia, unspecified-R00.1 Indication: Abnormal EKG, Pre-EP CPT Codes: Echo Complete w Full Doppler-78645 Study Detail: The following Echo studies were [...] LA Area A2C: 18.9 cm2 [place] A4C: 5.8 cm [place] A2C: 5.5 cm LA Volume Index: 27.0 [...] 1.3 m/s (0.6-0.9m/s) PV Max P.6 mmHg [id number] Batsheva Morris MD, FACC Electronically signed on 08/05/2023 at 2:30:14 PM Final [facility] Work Phone: XR CHEST 1 VIEWon 08-05-2023 XR CHEST 1 VIEW Interpreted By: Salvatore Clark, STUDY: XR CHEST 1 VIEW INDICATION: Signs/Symptoms:post implant. COMPARISON: None ACCESSION NUMBER(S): [id number] ORDERING CLINICIAN: ANA M KUMARI FINDINGS: No consolidation, effusion, edema, or pneumothorax. Pacemaker placed without pneumothorax. Position satisfactory. IMPRESSION: Status post pacemaker placement. Signed by: Salvatore Clark 08/05/2023 6:10 PM Dictation workstation: [id number] [facility] Comment on above: Order Comment: Vahe heard. XR Chest Single viewon 08-04 Status post pacemaker placement. Signed by: Salvatore Clark 08/05/2023 6:10 PM Dictation workstation: [id number] MMODAL Interpreted By: Salvatore Clark, STUDY: XR CHEST 1 VIEW INDICATION: Signs/Symptoms:post implant. COMPARISON: None ACCESSION NUMBER(S): [id number] ORDERING CLINICIAN: ANA M KUMARI FINDINGS: No consolidation, effusion, edema, or pneumothorax. Pacemaker placed without pneumothorax. Position satisfactory. [facility] MMODAL Salvatore Clark MD - 08/05/2023 Interpreted By: Salvatore Clark, STUDY: XR CHEST 1 VIEW INDICATION: Signs/Symptoms:post implant. COMPARISON: None ACCESSION NUMBER(S): [id number] ORDERING CLINICIAN: ANA M KUMARI FINDINGS: No consolidation, effusion, edema, or pneumothorax. Pacemaker placed without pneumothorax. Position satisfactory. IMPRESSION: Status post pacemaker placement. Signed by: Salvatore Clark 08/05/2023 6:10 PM Dictation workstation: [id number] [facility] Work Phone: Radiology Study observation (narrative) [facility] Work Phone: XR Chest Single viewOrdered By: Salvatore Clark on 08-05-2023 [facility] Work Phone: ECG 12 lead (Clinic Performe d)on 07-22-2023 EKG shows marked sinus bradycardia rate of 41 bpm QRS ration 100 ms QT corrected he had a 91 ms. Rhythm strip shows the same pattern. [facility] Work Phone: CT LUNG CANCER SCREENINGon [...] we can help. You may also call [phone] for free resources and assistance.; Status:Complete - [...] ischemic evaluation. He underwent cardiac catheterization in [place] which showed no significant obstructive disease 3. [...] BY MOUTH FOUR TIMES A DAY NEEDED Upgiun7p at bedtime Singulair 10 MG Oral TabletTAKE [...] Recorded: 14Jul2022 10:57AM Heart Rate34, L Radial Qpinhhko628, LUE, Sitting Hffgsfeff95, LUE, Sitting Height5 ft 4 in Nprwto026 lb BMI Pknhyomszt40.96 kg/m2 BSA Calculated1.92 Tobacco Usea) Yes Patient encouraged to st (more content not included)... Normal [employer] Tobacco Screening.on 023 Adult depression screening assessment No [facility] [address] DO Work Phone: Fall risk assessment a) No falls within the last year [facility] [employer] DO Work Phone: Tobacco use status CPHS a) Yes M [facility] 600 DO Work Phone: Tobacco Screening. Yes -[facility] 600 DO Work Phone: CT ABD/PELV W [...] FLEX JACOBS Date: 2022-06-11 10:06 Normal [facility] CBC AUTO DIFFon 05-07-2022 BASO # 0.1 103/ul Normal 0.0-0.1 [facility] Comment on above: Performed By: #### C BC #### [facility] [address] [place] [address] Dr. Britt Mendoza Basophils/100 WBC (Bld) 1.6 % Normal 0.2-2.0 [facility] Comment on above: Performed By: #### C BC #### [facility] [address] [place] [address] Dr. Britt Mendoza EO # 0.2 103/ul Normal 0.0-0.7 [facility] Comment on above: Performed By: #### C BC #### [facility] [address] [place] [address] Dr. Britt Mendoza Eosinophils/100 WBC (Bld) 3.0 % Normal 0.9-7.0 [facility] Comment on above: Performed By: #### C BC #### [facility] [address] [place] [address] Dr. Britt Mendoza Erythrocyte distribution width (RBC) [Ratio] 12.4 % Normal 11.0-15.0 [facility] Comment on above: Performed By: #### C BC #### [facility] [address] [place] [address] Dr. Britt Mendoza Hematocrit (Bld) [Volume fraction] 43.2 % Normal 42.0-54.0 [facility] Comment on above: Performed By: #### C BC #### [facility] [address] [place] [address] Dr. Britt Mendoza Hemoglobin (Bld) [Mass/Vol] 14.7 g/dL Normal 14.0-18.0 [facility] Comment on above: Performed By: #### C BC #### [facility] [address] [place] [address] Dr. Britt Mendoza IG # 0.11 10e3/ul Critically high 0.00-0.03 [facility] Comment on above: Performed By: #### C BC #### [facility] [address] [place] [address] Dr. Britt Mendoza IG % 1.4 % Critically high 0.0-0.5 [facility] Comment on above: Performed By: #### C BC #### [facility] [address] [place] [address] Dr. Britt Mendoza LYMPH # 1.7 103/ul Normal 1.2-3.8 [facility] Comment on above: Performed By: #### C BC #### [facility] [address] [place] [address] Dr. Britt Mendoza Lymphocytes/100 WBC (Bld) 21.6 % Normal 20.5-60.0 [facility] Comment on above: Performed By: #### C BC #### [facility] [address] [place] [address] Dr. Britt Mendoza MANUAL DIFF REQ NO Normal [facility] Comment on above: Performed By: #### C BC #### [facility] [address] [place] [address] Dr. Britt Mendoza MCH (RBC) [Entitic mass] 31.2 pg Normal 25.9-34.0 [facility] Comment on above: Performed By: #### C BC #### [facility] [address] [place] [address] Dr. Britt Mendoza MCHC (RBC) [Mass/Vol] 34.0 g/dL Normal 29.9-35.2 [facility] Comment on above: Performed By: #### C BC #### [facility] [address] [place] [address] Dr. Britt Mendoza MCV (RBC) [Entitic vol] 91.7 fL Normal 80.0-94.0 [facility] Comment on above: Performed By: #### C BC #### [facility] [address] [place] [address] Dr. rBitt Mendoza MONO # 0.5 103/ul Normal 0.3-0.8 [facility] Comment on above: Performed By: #### C BC #### [facility] [address] [place] [address] Dr. Britt Mendoza Monocytes/100 WBC (Bld) 6.8 % Normal 1.7-12.0 [facility] Comment on above: Performed By: #### C BC #### [facility] [address] [place] [address] Dr. Britt Mendoza NEUT # 5.0 103/ul Normal 1.4-6.5 [facility] Comment on above: Performed By: #### C BC #### [facility] [address] [place] [address] [address] Britt Mendoza Neutrophils/100 WBC (Bld) 65.6 % Normal 43.0-75.0 [facility] Comment on above: Performed By: #### C BC #### [facility] [address] [place] [address] [address] Britt Mendoza Platelet mean volume (Bld) [Entitic vol] 9.7 fL Normal 9.5-13.5 [facility] Comment on above: Performed By: #### C BC #### [facility] [address] [place] [address] Dr. Britt Mendoza PLT 244 103/ul Normal 150-450 [facility] Comment on above: Performed By: #### C BC #### [facility] [address] [place] [address] Dr. Britt Mendoza RBC 4.71 106/ul Normal 4.70-6.10 [facility] Comment on above: Performed By: #### C BC #### [facility] [address] [place] [address] Dr. Britt Mendoza WBC 7.6 103/ul Normal 4.0-11.0 [facility] Comment on above: Performed By: #### C BC #### [facility] [address] [place] [address] Dr. Britt Mendoza GLYCOHEMOGLOBIN A1Con 2021 ADA RECOMMENDATION SEE BELOW Normal [facility] Comment on above: Result Comment: ADA RECOMMENDED LIMIT 4.0 - 6.0 ADA THERAPEUTIC TARGET < 7.0 ACTION SUGGESTED > 7.0 Performed By: #### A 1C ####[facility] [address] [place] [address]Dr. Britt Mendoza Glucose [Mass/Vol] 117 mg/dL Normal [facility] Comment on above: Performed By: #### A 1C ####[facility] [address] [place] [address]Dr. Britt Mendoza HbA1c (Bld) [Mass fraction] 5.7 % Normal 4.5-6.2 [facility] Comment on above: Performed By: #### A 1C ####[facility] [address] [place] [id number]. Anjalidaniel Reji LIPID PROFILEon 05-07-2022 CHOL-HDL RATIO NORM SEE BELOW Normal [facility] Comment on above: Result Comment: 3.3 - 4.4 LOW RISK 4.4 - 7.1 AVERAGE RISK 7.1 - 11.0 MODERATE RISK >11.0 HIGH RISK Performed By: #### B MP, LIVER, LIPID, TSH ####[facility] [address] [place] [id number]. Anjalidaniel Reji Cholesterol [Mass/Vol] 235 mg/dL Critically high <=200 [facility] Comment on above: Performed By: #### B MP, LIVER, LIPID, TSH ####[facility] [address] [place] [phone]. Britt Mendoza Cholesterol in HDL [Mass/Vol] 40 mg/dL Normal 40-60 [facility] Comment on above: Performed By: #### B MP, LIVER, LIPID, TSH ####[facility] [address] [place] [address]Dr. Britt Mendoza Cholesterol in LDL [Mass/Vol] 156.8 mg/dL Normal [facility] Comment on above: Performed By: #### B MP, LIVER, LIPID, TSH ####[facility] [address] [place] [id number]. Anjalidaniel Reji Cholesterol.total/Viola sterol in HDL [Mass ratio] 5.9 {ratio} Normal [facility] Comment on above: Performed By: #### B MP, LIVER, LIPID, TSH ####[facility] [address] [place] [id number]. Anjalidaniel Reji HDL NORMAL > or = 60 mg/dl - LOW CARDIOVASCULAR RISK <40 mg/dl - HIGH CARDIOVASCULAR RISK Normal [facility] Comment on above: Performed By: #### B MP, LIVER, LIPID, TSH ####[facility] [address] [place] [phone]. Britt Mendoza LDL CALC NORMAL SEE BELOW Normal [facility] Comment on above: Result Comment: <100 mg/dl OPTIMAL 100 - 129 mg/dl NEAR OR ABOVE OPTIMAL 130 - 159 mg/dl BORDERLINE HIGH 160 - 189 mg/dl HIGH >190 mg/dl VERY HIGH Performed By: #### B MP, LIVER, LIPID, TSH ####[facility] [address] [place] [phone]. Britt Mendoza Triglyceride [Mass/Vol] 191 mg/dL Critically high <=150 [facility] Comment on above: Performed By: #### B MP, LIVER, LIPID, TSH ####[facility] [address] [place] [address]Dr. Britt Mendoza VLDL CALC 38.2 mg/dL Normal [facility] Comment on above: Performed By: #### B MP, LIVER, LIPID, TSH ####[facility] [address] [place] [address]Dr. Britt Mendoza LIVER PROFILEon 05-07-2022 Albumin [Mass/Vol] 3.6 g/dL Normal 3.4-5.0 [facility] Comment on above: Performed By: #### B MP, LIVER, LIPID, TSH ####[facility] [address] [place] [address]Dr. Britt Mendoza Albumin/Globulin [Mass ratio] 1.1 {ratio} Normal [facility] Comment on above: Performed By: #### B MP, LIVER, LIPID, TSH ####[facility] [address] [place] [address]Dr. Britt Mendoza ALP [Catalytic activity/Vol] 84 U/L Normal 46-116 [facility] Comment on above: Performed By: #### B MP, LIVER, LIPID, TSH ####[facility] [address] [place] [address]Dr. Britt Mendoza ALT [Catalytic activity/Vol] 34 U/L Normal 16-63 [facility] Comment on above: Performed By: #### B MP, LIVER, LIPID, TSH ####[facility] [address] [place] [address]Dr. Britt Mendoza AST [Catalytic activity/Vol] 21 U/L Normal 15-37 [facility] Comment on above: Performed By: #### B MP, LIVER, LIPID, TSH ####[facility] [address] [place] [address]Dr. Britt Mendoza BILI, CONJUGATED 0.1 mg/dL Normal 0.0-0.2 [facility] Comment on above: Performed By: #### B MP, LIVER, LIPID, TSH ####[facility] [address] [place] [address]Dr. Britt Mendoza Bilirubin [Mass/Vol] 0.4 mg/dL Normal 0.2-1.0 [facility] Comment on above: Performed By: #### B MP, LIVER, LIPID, TSH ####[facility] [address] [place] [address]Dr. Britt Mendoza Globulin (S) [Mass/Vol] 3.4 g/dL Normal [facility] Comment on above: Performed By: #### B MP, LIVER, LIPID, TSH ####[facility] [address] [place] [address]DrAtiya Mendoza Protein [Mass/Vol] 7.0 g/dL Normal 6.4-8.2 [facility] Comment on above: Performed By: #### B MP, LIVER, LIPID, TSH ####[facility] [address] [place] [address]DrAtiya Mendoza PROF CHEM 8 (BAS METB)on Anion gap [Moles/Vol] 13.8 mmol/L Normal [facility] Comment on above: Result Comment: Prev iously reported as: -2.3 On 05/07/2022 13:50 By DM9 Performed By: #### B MP, LIVER, LIPID, TSH #### [facility] [address] [place] [address] [address] Britt Mendoza Calcium [Mass/Vol] 9.2 mg/dL Normal 8.5-10.1 [facility] Comment on above: Performed By: #### B MP, LIVER, LIPID, TSH #### [facility] [address] [place] [address] [address] Britt Mendoza Chloride [Moles/Vol] 99 mmol/L Normal 98-107 [facility] Comment on above: Result Comment: Prev iously reported as: 106 On 05/07/2022 13:50 By DM9 Performed By: #### B MP, LIVER, LIPID, TSH #### [facility] [address] [place] [address] [address] Britt Mendoza CO2 [Moles/Vol] 27.3 mmol/L Normal 21.0-32.0 [facility] Comment on above: Result Comment: Prev iously reported as: 29.2 On 05/07/2022 13:50 By DM9 Performed By: #### B MP, LIVER, LIPID, TSH #### [facility] [address] [place] [address] Dr. Britt Mendoza Creatinine [Mass/Vol] 1.12 mg/dL Normal 0.70-1.30 [facility] Comment on above: Performed By: #### B MP, LIVER, LIPID, TSH #### [facility] [address] [place] [address] Dr. Britt Mendoza EGFR-AF CHINESE >60 Normal >=60 [facility] Comment on above: Performed By: #### B MP, LIVER, LIPID, TSH #### [facility] [address] [place] [address] Dr. Britt Mendoza EGFR-NON AF CHINESE >60 Normal >=60 [facility] Comment on above: Performed By: #### B MP, LIVER, LIPID, TSH #### [facility] [address] [place] [address] Dr. Britt Mendoza Glucose [Mass/Vol] 108 mg/dL Critically high 74-106 T [facility] Comment on above: Performed By: #### B MP, LIVER, LIPID, TSH #### [facility] [address] [place] [address] Dr. Britt Mendoza Potassium [Moles/Vol] 4.1 mmol/L Normal 3.5-5.1 [facility] Comment on above: Result Comment: Prev iously reported as: 3.9 On 05/07/2022 13:50 By DM9 Performed By: #### B MP, LIVER, LIPID, TSH #### [facility] [address] [address] [address] Britt Mendoza Sodium [Moles/Vol] 136 mmol/L Normal 136-145 [facility] Comment on above: Result Comment: Prev iously reported as: 129 On 05/07/2022 13:50 By DM9 Performed By: #### B MP, LIVER, LIPID, TSH #### [facility] [address] [address] [address] Britt Mendoza Urea nitrogen [Mass/Vol] 26.0 mg/dL Critically high 7.0-18.0 [facility] Comment on above: Performed By: #### B MP, LIVER, LIPID, TSH #### [facility] [address] [address] [address] Britt Mendoza Urea nitrogen/Creatinine [Mass ratio] 23.2 mg/mg Normal [facility] Comment on above: Performed By: #### B MP, LIVER, LIPID, TSH #### [facility] [address] [address] [address] Britt Mendzoa TSHon 05-07-2022 TSH 0.828 uIU/mL Normal 0.358-3.740 [facility] Comment on above: Performed By: #### B MP, LIVER, LIPID, TSH ####[facility] [address] [address]Dr. Britt Mendoza VITAMIN D 25 OHon 05-07-2022 VIT D 25-OH 45.6 ng/mL Normal [facility] Comment on above: Performed By: #### V ITAD, PSASC #### [facility] [address] [address] [address] Britt Mendoza VIT D RANGES SEE BELOW Normal [facility] Comment on above: Result Comment: <20 ng/mL Vit D deficient 20 - <30 ng/mL Vit D insufficient 30 - 100 ng/mL Vit D sufficient >100 ng/mL Potential Toxicity Performed By: #### V ITAD, PSASC #### [facility] [id number] Britt Mendoza Covid-19 PCR (CVDTB)on SARS-CoV-2 (COVID-19) RNA KATT+probe Ql (Unsp spec) Detected Critically abnormal NOT DETECTED [facility] Comment on above: Result Comment: This test is not yet approved or cleared by the [place] FDA. When there are no FDA-approved or cleared tests available, and other criteria are met, FDA can make tests available under an emergency access mechanism called an Emergency Use Authorization (EUA). The EUA for this test is supported by the Bag Machine Operator of Health and Human Service's declaration that [...] longer be used). Performed By: #### [facility] ####[facility] [address] [id number]. Britt Mendoza Cardiac Stress Teston 2021 Cardiac Stress Test [address], [address], [place] [address] Exercise Stress Test Patient Name: LILIANA MICHAELS Ordering Physician: [id number] Ty MD Study Date: 02/15/2022 Reading Physician: [id number] Valentino Ty MD MRN/PID: [id number] Supervising Physician: [id number] Yovani Rivera MD Accession/Order#: [id number] Referring Physician: VALENTINO TY Date of : 1965 PCP: Ishmael Simon Gender: M Fellow: Height: 162.56 cm Nurse: Yunior Bhatti RN Weight: 81.65 kg Osteopathic Neurologist: SAEID BSA: 1.87 m2 Technologist: BMI: 30.90 kg/m2 Additional Staff: Age: 56 years cc report to: Patient Location: cc report to: [id number] Valentino Ty MD Study Type: Cardiac Stress Test Diagnosis/ICD: R94.31-Abnormal electrocardiogram [ECG] [EKG]; R00.1-Bradycardia, unspecified; R06.00-Dyspnea, unspecified Indication: Dyspnea Procedure/CPT: Stress Test Interpretation-[id number] ; Stress Test Supervision-30022 Falls Risk: Low: Patient has low risk [...] 7. An element of chronotropic incompetency noted. [id number] Valentino Ty MD Electronically signed on 02/16/2022 at 2:52:20 PM Final Normal [facility] Cardiac Stress Test Please click on the link to view the study images [facility] Work Phone: Cardiac Stress Test MP-No rth [facility] 250 DO Work Phone: Office [...] Status:Hold For - Scheduling,Retrospec tive Authorization; Requested for:[id number]; Class 1 obesity with body mass index (BMI) of 30.0 to 30.9 in adult Healthy Weight Tips; Status:Complete - Retrospective Authorization; Done: [id number] Some eating tips that can help you lose weight.; Status:Complete - Retrospective Authorization; Done: 39Tml0051 Sinus bradycardia You need to stop smoking. Though it is not easy, more than half of all adult smokers have quit. We encourage you to write down all the reasons you should quit smoking and set a quit date for yourself. Ask us how we can help. You may also call 3-262-ZCBVNOW for free resources and assistance.; Status:Complete - Retrospective Authorization; Done: 59Yjv8850 SocHx: Current smoker Continue with our present treatment plan.; Status:Complete - Retrospective Authorization; Done: 65Agz3989 Tobacco Use Screening; Status:Complete; Done: 70Fqx5749 Patient Instructions Please bring all medicines, vitamins, [...] This led to a cardiac evaluation in [place] and its not clear to me whether [...] Oral Capsule Delayed ReleaseTAKE 1 CAPSULE Daily Qheabo9q at bedtime Sin (more content not included)... Normal [facility] Tobacco Screening.on 022 Adult depression screening assessment No [facility] 600 DO Work Phone: Fall risk assessment a) No falls within the last year [facility] 600 DO Work Phone: Tobacco use status CPHS a) Yes M [facility] 600 DO Work Phone: Tobacco Screening. Yes [facility] 600 DO Work Phone: Covid-19 PCR (CVDTBH)on SARS-CoV-2 (COVID-19) RNA KATT+probe Ql (Unsp spec) Not detected Normal NOT DETECTED [facility] Comment on above: Result Comment: This test is not yet approved or cleared by the [place] FDA. When there are no FDA-approved or cleared tests available, and other criteria are met, FDA can make tests available under an emergency access mechanism called an Emergency Use Authorization (EUA). The EUA for this test is supported by the Bag Machine Operator of Health and Human Service's (HHS's) [...] SARS-CoV-2. Performed By: #### C VDTB #### [facility] [address] [place] [address] Dr. Britt Mendoza Covid-19 PCR (CVDTBH)on 11-07 SARS-CoV-2 (COVID-19) RNA KATT+probe Ql (Unsp spec) Not detected Normal NOT DETECTED [facility] Comment on above: Result Comment: This test is not yet approved or cleared by the [place] FDA. When there are no FDA-approved or cleared tests available, and other criteria are met, FDA can make tests available under an emergency access mechanism called an Emergency Use Authorization (EUA). The EUA for this test is supported by the Bag Machine Operator of Health and Human Service's (HHS's) [...] consistent with SARS-CoV-2. Performed By: #### [facility] ####[facility] [address] [place], [place] [address]Lr. Britt Mendoza XR CHEST 2 Von 10-01-2021 [...] FLEX JACOBS Date: 2021-10-01 09:30 Normal [facility] Ambulatory Clinical Summaryo n 03-05-2021 Ambulatory Clinical Summary {[id number]}CD:[id number] Normal [facility] Historical Records Officeon 03-05-2021 Historical Records Office [id number]. [id number] #[id number] Normal [facility] Patient Educationon 03-05-20 Patient Education Urology [...] these instructions at home: Medicines ? Take dfel-fum-lqgauva and prescription medicines only as told by [...] your (more content not included)... Normal [facility] Urology Office/Clinic Noteon 03-05-2021 Urology Office/Clinic [...] order. Ordered: Office Visit Level 4 Est 42814 2. Hypogonadism male (E29.1: Testicular hypofunction) noted [...] time. Ordered: Office Visit Level 4 Est 15466 3. BPH with urinary obstruction (N40.1: Benign prostatic hyperplasia with lower urinary tract symptoms) s/p Urolift September 2018. Pt is currently taking no bladder/prostate medication and is mostly satisfied with overall symptom control. has nocturia but attributes this to diuretics. Pt prefers to continue with no changes at this time. PCP checking PSAs per pt. Ordered: Office Visit Level 4 Est 71374 Orders: Urnls Dip Stick Auto w/o Microscopy POC 32994 offered f/u 1 yr but pt prefers PRN. 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 Follow-up With When Contact Information SIMONE JEAN BAPTISTE DC [address] [place] [address]- Additional Instructions: Patient Education Erectile Dysfunction Problem [...] inhalation powde (more content not included)... Normal [facility] Comment on above: Result Comment: Elec tronically Signed By: TOMEKA SANCHEZ PA-C\.br\Date and Time Signed: 03/05/21 12:24 EDT MRI PELVIS WO CONTRASTon MRI PELVIS WO CONTRAST [facility] Department of Radiology [address] [place] [address] Patient Name: LILIANA MICHAELS : 1965 Sex: M Age: Race: White Pt. Location: 18 Patient Status: Ordered Date: 09/10/2020 3:35:00 PM Completed Date: 10/03/2020 08:34 AM Requesting Provider: SIMONE RUIZ Attending Provider: Report Copy To: Signs & Symptoms: R10.2 Pelvic and perineal pain I10 History: Lenore, Right FOREIGN per clinic will fax SS mally auth# [id number] 09/16/20-10/17/20 cpt code 46594 *mla Comments: Right groin to r/o an [...] spine. Electronically signed: Dinh Miller. Transcribed by: [email or web address], User Resident: Electronically Signed by: DINH MILLER @ 10/03/2020 09:57 AM Normal [facility] Comment on above: Order Comment: Right groin to r/o an adductor tear; iliopsoas bursitis or injury Operative Reporton Operative Report MR#: [id number] S [facility] Pt. Name: Liliana Michaels Room #: [...] Ruiz MD Date Trans: 09/10/2020 11:40 P/mmo DN_JN:[id number] cc: Ishmael Simon M.D. [address] [facility] [address] [place] [facility] Coding Summary.on 09-01-2020 Coding Summary. CD:[id number]:[id number] Gh0bWw+PGhlYWQ+PE1FV GVwI44utEApyJ8ZK5iSO Y8XICRQDYIWYB8SVF7rg ZF5ESrvS7VzstNz IascvACeJX70FDl9OTI0 bOjtFEflqK1jqAPaV1l9 AsUlOC97jL16RXtsZTGe HbO3QhRkkxpwiWJg V5qxKkKduBPuIzp+PHRh YmxlIHdpZHRoPScxMDAl XyWkvBzfXV1eQt0kVDDv LWNvbGxhcHNlOiBj y0kgGOHmLAviKP7zpYkt I3KnhFM7QXTor0v1Ie65 dHI+LUAwQOG3tHviVBbk x196MwFbu7xeQWA1 dBGqJQynKRK8C09lm6P0 VFZlPXAvIOX8sCE9oJ4z cQtsfkjzD8JpjXEtUwA5 SIW0gHEzvQ5ayBnw sqzdbY2xXvf+C41YVG3I FCECVJ3JNzc0E8OmZjob dHI+YA38SONfSQ35yVOn fBGue5bgfBc3AqAr MNUbCOD2dRqhLMfdh5Ow EBXuJ95ulFMno7C9TFJj bBnobJVsPuGtzGT7oV6d STsubeskz7qcszvr Kcsdi3pbtn68yL93A65p DHqfNIXfKPE4FGWyGECn uMduee7ggF9rNe8+IDxj b1cwr6dpwAq1XnYp NCCkcxWevGwrAVC8j6Zb Fo12I7QnaOeks4NwHko0 zx26vHSxy2C3vHI5YLlw ZTGhbA2hCXccWbM8 MROiWhSctJ15wNIhPGvb Hx0niXvcvGinBS5fVOTb wancPGPpvN6wMUGqdGAb lYajPO3rLCCfipjw i172RyAqHQE5ORYnpBPh P1IiqU8kMsNnWFJaQVRe P3XikYMnMQmcC265WHit IbW7LBGoacHiJ3Jj ZDYfoKjoVeE5u6Q5Zf9O f6BxpwcyXKJ7AVkmPEV5 KcC3IlGrVgB4D3MvMzy9 FGMraZujHC8wJ3Wj HWUvptdxeijcvCV3XDZm VBSxfN25fVWiXWjeRh1c e6C3q273UAIdPRHrbG35 Fj5pkCyjXWXvtZEC jH0csweom1kxnttnUqSx IEDgTGj1CDb0NJYgbJtt BtUdHZQ2AaZ3ERJ3pSZp vZ1odHyacltemD3i Oyc+D64jyC3wRVW1ICB0 dxklFUWqzzNyCS54FI54 X5PoEfzddUSwrQX+PGRp vnShbWmaYK0yEnGu a7zcx5IgZKxwM1MuLQDr PXasZbg1AIVjHVO0dLR2 cK8oLDRnVDyhk4W4qNL8 P5KdpgTjwu4zp2tr SACwHNhuI24rlHMlq0J7 FUValKS3FFPclWzwEoMj aB34Ure+HLSilGiov6Xp Skyzz6rhz6hwwWg6 IjMwJSIgdmFsaWduPSJ0 h9CyHo24N46zSBdrWQQj GEZqCVKlVWNfzDjjjt0g bZ6oKc8+PGNvbCB3 hBE3rO9tOYAkOwE2CLig K147FrGsaZSlMdphs4rb m7rgkSw8PcVbMGJcldRx yGqnFZK9u1CtWm79 V39nUVcxYKKaCWUzROXt FKVpaVcekj2veW2gEc7+ JZ3bf4qwwb30uL57oFS+ IMMzSBQ8gBidPBhb NHEinZ7dAYikLkW4AYKt NqLhdT84iIJjOCasTy6f pXjupPknGO9fQHKhifwa z363BeDgn8ueKTKz nIPmYOekKNB5M34uf9V3 UKTrARTjDEW7gII3dC9r bGlnbjogbGVmdDsgdmVy eSopWOzkFTtqE288 IHRvcDsnPlBhdGllbnQg AaOdEDw1L0QfBfc7WPLl jKheHI1ocCYxNLtaSh1w iPakfJbfNZ0vDUYc zdwdq482YkQwn5nhJPVj pMUiTOmuYBT4V66hj4U9 IBApUAYaYKS0yDB2mB9b bGlnbjogbGVmdDsg szMpxTojVVkxEMuoK957 IHRvcDsnPkJpcnRoIERh cRD4MA74PB15sCMec9R4 rHN2N4QdVZUlayqk ocjkjZQ1AYVtIEAihJ98 Ks6eoOkcMq0kREPjXVD0 RNPrgCZpV1HnvF4fCbAc ILOtNYZxB1EqjFRy TIirH801BVgvDcK4KARz wyHhV2IhOFMrpAolWeY5 m1O9Gt7MQ6L2EG41OM16 wOZaq0Q6hZL9Q6Wb NOJywvqfekcsqGO3RWQq IDGcyL63Zo5vkNrzCg3m FVCfMKS0DHAneHBnW1Md wZ1vAiVhLGSfMRHh E4PvyEOxAFpsX123VVmc AjF9PDXgulBjL0CiFHAe aKwwXvK4a4R0Ib5YCRz0 FZ42GJ63tCVho6Z7 uQO2I9CuNDEqwittiuwz hYX5VLCtYUQyiP21Pg2o eGkzGj0qQNAbVLQ4VVQp cSCsK5SgvV6bAbTq YPScVWZxR5AynZQcAUzq V590EBrtTbI6VDUbjuYw Z6ZaIQSxvLbgQgT1a7W8 Mb3TXYTwSK67RKN4 kSY1VG10XJ74H5RqLmut dGFibGU+PHRhYmxlIHdp ZHRoPScxMDAlJyBzdHls QB9lAv0hKSKoCWOh cEzccAWiZhAqx5fpSRNh TMtrNV2xbXviX1AtjRO1 DNBkl9k3Ig36C10qD7Oi dXA+ACSmwBG5eLY0 qA8sQuBzVpT1DTxhV355 JnVcaIFtXhygu5unt5ai pXj3AzC5EPTmopWraEsw RXR5u3LnGu33B44o IHdpZHRoPSIxNSUiIHZh pChpjn4avQ9sMy1+PGNv qZZ6sGM2oR6cVzLsRrH7 POucL076BqWtrTFx Yzqko2eyh8jxpUg4FnQn LNKzvqUaiUbfOYU9o8Gv Mb82K2XzmElnh0SxItu9 kh29iYQgn7J5eGX0 S2UdESZzqcgnmSRpyBfu FZ0bBGNynwedGGThaF2v SZGwW3w4XzGtPvP1PVll R8IsogR3WDRohBZd LOqqHZV7Z41pl9H3XMIj FDSeUAA6nIQ8tI7hhRmu bjogbGVmdDsgdmVydGlj MXzzCZrzT494LJKk sXzhOHKmeR4yGBUywNTv kSzpOG3uBZGtmfytJxbJ QU6KQwieJrIGVPpkFQtm dGQ+KZCqEQW4uQgv LSxeBFLmeU2mASLsE3x1 NmQmBhB1DQtcQ6ZmDPFc cwpuBe28cD5nMmHqUgQ2 MGnkX0GecwR9LSNj jLHyWYshXVB0N48qy9U0 QNPmLYAsBYG1aYE4vH6p bGlnbjogbGVmdDsgdmVy aGujCRbsXGxxY676 WDIknJmzTgZpOaP9AtM5 QrI8M6UdDit8QHWicKud XD5dwSFcDQhgDf0dlYqj jFszEC5fODWoidku DMAtsU3zDJAnrTVclOgj UN2yDSMwpvalh636TkVa EQA0DPVrdNRzW4LjnO9w XqIcFRMvBXJwX7Wk nVGgTEspT384SGpqKoB5 FLFcueBpG7HbONTolZgk AjH3s1M3Zy38KkUEBCEs czwvdGQ+PHRkIHN0 sKtgIBlgOXJnnF7uTVCz Y3u4YeJeFgA5BCpsQ5Ab RDLopxoxAy45rR1dWpQv ToQ6RHtwT5LdjiS8 UOBmnKJvGCltEKL1R79p x1C2KZMzZODhGDN1zWV2 vX0hyShsoxunqOSgoAts dmVydGljYWwtYWxp G956PZSrtZmzFi8wzHB5 R2ByRsv3QJWocMboWA6l eTHmGNgvKo1fiIrfcXqd SD9uUOVkdpwyZXTj kW2kHKRsxVUqqZxoUM9s GQXycfudn892LlYjKFU3 ZNUpuCBpG8HveS5oLpYa VEJoLCUhC3IzcNNv WSoyU480LPwgFrS1FKKy wnDpY3YgEVWdqGtdYdV8 n3O8Gd1IiFZcK4WxS3w5 K5MrXyyebNS+PC90 TEZeYZ41cFPkpNGkn0ls lCd6FpAnKZMxWXA4fUjv WUsmz0RlNTGlO69hxQAy r9E6RLZyhOwbxBVi BeObxQL9qC9qAWxsllrj k3ryvyrdLjppw0rkia97 wW88O99fCDbhWZLjRRNd KKNqTLXsbZlwyq7j uL6aAd8+EJAmkDK3mUO3 tZ8sNePkXhE7LEgxQ900 IzMkqYSbUlczm3znz8ox iLb1WyNtJABapsYi pHxfNJR3s9ZxIv24U11o IHdpZHRoPSIyMCUiIHZh uCcdzu9ujE1lCy5+PC9j n1brzr39aH02uGI+ GWSoTQL8lSiaEYcfGFWv wR3dUYyhFgB0PUAuArAw uS38fWVbZNxyRb7ddEpb nJyeAV0qKMUuwauq x289QaAvp3krOBTzrGOe YUtwCIN0Y85rv3F5DRLe CQPfIAJ4mSI4yA3akCck bjogbGVmdDsgdmVy sRiqZExwNTmoG304USZo wPtlBmVgdWBpI5wjerKZ PZ7zJmvrbGW+PHRkIHN0 fTifIZrrIDEudZ0l WQRzK0d5FgDeSxC6AZfm M4HvduZ6UBHbxAFyDTOx jFYKkD0rlkhtd4dufbcn SrYxLTAuPVl8VUo5 EAYbuAivDdJwRBI8JiE8 FKA6qFZiqY9eyXclcwbd jX1iBoz+RklOOjwvdGQ+ PAIeEZU3vBvzXWdg XOPxiL6dLZYaM1y9VwQt UpB2KAnjE7ZdrxW1WZRm aNCaEGNqxXMUvL4yorgb v8ffrqguFnXoMRVw DVe0LZw8BKTsrLchGhNj KQO8EpM4SCU5xCLuvQ8q nZmeggfseA7qLmg+TVJO OjwvdGQ+PHRkIHN0 zXmsLNjxWCGozS3cLSNq I8o5SpHqHzO6VNhdK5Ca vlK8EDWidXMxGXDceVTJ iI3druomt1ymxcrb GyZdJHOqPUx7SHj7INZv eMccSyQoFHQ0WmR6JNA9 zNMavI6qbQdmxsniuO4a Oyc+KTD1KOB9GA36 JH25Y6KgDlnigOGeuRC+ PHRhYmxlIHdpZHRoPScx TTPgBkXbpZhiPE0aYt7x ZGVyLWNvbGxhcHNl OiBj (more content not included)... Normal [facility] Auto Diffon 08-24-2020 Basophils/100 WBC (Bld) 1.0 % Normal 0.0-2.0 [facility] Comment on above: Order Comment: Order Added by Discern Expert. Performed By: #### 1 [id number], 8444576, 1879478, 22336951, 2228071, 1481648, 61764235, 10631070 ####[facility] [address] [place] [address] Basophils/Leukocytes Auto (Bld) [Pure # fraction] 0.1 E9/L Normal 0.0-0.2 [facility] Comment on above: Order Comment: Order Added by Discern Expert. Performed By: #### 1 0940933, 3514640, 3227188, 27888578, 7025840, 7643278, 04551593, 20640408 ####[facility] [address] [place] [address] Eosinophils/100 WBC (Bld) 2.5 % Normal 0.0-8.0 [facility] Comment on above: Order Comment: Order Added by Discern Expert. Performed By: #### 1 9939585, 3048913, 0784981, 75467197, 2289101, 4778439, 76473072, 17093976 ####[facility] [address] [place] [address] Eosinophils/Leukocytes Auto (Bld) [Pure # fraction] 0.3 E9/L Normal 0.0-0.5 [facility] Comment on above: Order Comment: Order Added by Discern Expert. Performed By: #### 1 7765676, 2046528, 6503682, 21587536, 0980401, 0891249, 85142493, 08268678 ####[address] [place] [address] Lymphocytes/100 WBC (Bld) 21.0 % Normal 14.0-50.0 [facility] Comment on above: Order Comment: Order Added by Discern Expert. Performed By: #### 1 6614805, 2751769, 0233730, 19271167, 2878137, 5323233, 95729676, 16153846 ####[address] [place] [address] Lymphocytes/Leukocytes Auto (Bld) [Pure # fraction] 2.1 E9/L Normal 1.0-4.0 [facility] Comment on above: Order Comment: Order Added by Discern Expert. Performed By: #### 1 0666352, 6614679, 9180339, 47030763, 1302326, 4723744, 70459055, 99883769 ####[address] [place] [address] Monocytes/100 WBC (Bld) 6.2 % Normal 4.0-14.0 [facility] Comment on above: Order Comment: Order Added by Crystal Expert. Performed By: #### 1 4321456, 8609257, 3051478, 27948415, 9117854, 8262736, 44858027, 18657808 ####[address] [place] [address] Monocytes/Leukocytes Auto (Bld) [Pure # fraction] 0.6 E9/L Normal 0.2-1.0 [facility] Comment on above: Order Comment: Order Added by Discern Expert. Performed By: #### 1 6008280, 4019165, 1618817, 70610903, 0352893, 3325259, 38512980, 03665877 ####[address] [place] [address] Neutrophils/100 WBC (Bld) 69.3 % Normal 36.0-75.0 [facility] Comment on above: Order Comment: Order Added by Discern Expert. Performed By: #### 1 0225787, 1682808, 6939011, 01074354, 2240841, 6756082, 24401952, 28633736 ####[address] [address] Neutrophils/Leukocytes Auto (Bld) [Pure # fraction] 6.9 E9/L Normal 2.0-7.5 [facility] Comment on above: Order Comment: Order Added by Discern Expert. Performed By: #### 1 8193869, 2938797, 8675601, 07913740, 5435833, 9965843, 57614206, 67091592 ####[address] [place] [address] BMPon 08-24-2020 Creatinine [Mass/Vol] 1.1 mg/dL Normal 0.5-1.3 [facility] Comment on above: Performed By: #### 1 3058178, 1814275, 5987044, 08499083, 0935289, 7932684, 94331380, 64891622 ####[address] [place] [address] Urea nitrogen [Mass/Vol] 19 mg/dL Normal 5-21 [facility] Comment on above: Performed By: #### 1 5481933, 9365949, 5754723, 51945201, 8115917, 9183204, 67295391, 40312818 ####[facility] [address] [place] [address] Urea nitrogen/Creatinine [Mass ratio] 17 No Units Normal 10-20 [facility] Comment on above: Performed By: #### 1 2313191, 2389691, 6119930, 74840713, 6746276, 4483724, 99058937, 83665958 ####[facility] [address] [place] [address] Anion gap [Moles/Vol] 14 mmol/L Normal 6-16 [facility] Comment on above: Performed By: #### 1 7030910, 2153385, 9755326, 00666565, 8773159, 8959806, 12805824, 23315701 ####[facility] [address] [place] [address] Calcium [Mass/Vol] 9.4 mg/dL Normal 8.9-11.1 [facility] Comment on above: Performed By: #### 1 9058189, 8471097, 5377582, 09934831, 2259483, 6759397, 78432308, 33042597 ####[facility] [address] [place] [address] Chloride [Moles/Vol] 94 mmol/L Low 101-111 [facility] Comment on above: Performed By: #### 1 8974821, 2437509, 5865584, 49060207, 1650164, 2108896, 12750198, 93296016 ####[facility] [address] [place] [address] CO2 [Moles/Vol] 29 mmol/L Normal 21-[address] [facility] Comment on above: Performed By: #### 1 3685114, 7141793, 3229353, 98432573, 8509042, 3739217, 50777557, 84918398 ####[facility] [address] [place] [address] Glucose [Mass/Vol] 103 mg/dL Normal 55-199 [facility] Comment on above: Result Comment: If t his glucose result represents a fasting glucose, interpretation should refer to the following reference range: 55-99 mg/dL Performed By: #### 1 1722967, 6084227, 2512518, 77316854, 9591609, 1071371, 75068007, 29949572 ####[facility] [address] [place] [address] Potassium [Moles/Vol] 4.0 mmol/L Normal 3.5-5.3 [facility] Comment on above: Performed By: #### 1 1553725, 1505932, 4100264, 96241803, 0184061, 5264290, 67774934, 09326365 ####[facility] [address] [place] [address] Sodium [Moles/Vol] 133 mmol/L Low 135-145 [facility] Comment on above: Performed By: #### 1 5796599, 4337555, 2527977, 69830423, 8539439, 2166350, 04848940, 25638323 ####[facility] [address] [place] [address] BNPon 08-24-2020 Natriuretic peptide B (Bld) [Mass/Vol] 17 pg/mL Normal 5-80 [facility] Comment on above: Performed By: #### 1 8439000, 5055800, 8074610, 31858426, 9321117, 4083191, 00465475, 95562163 ####[facility] [address] [place] [address] CBC w/ Auto Diffon Erythrocyte distribution width (RBC) [Ratio] 12.9 % Normal 10.9-14.2 [facility] Comment on above: Performed By: #### 1 8749483, 8230176, 8210767, 35895417, 9830650, 7843709, 52700651, 46604030 ####[facility] [address] [place] [address] Hematocrit (Bld) [Volume fraction] 44.4 % Normal 37.7-49.0 [facility] Comment on above: Performed By: #### 1 9493304, 9618445, 8143050, 16736671, 4324988, 5491511, 39627209, 41160321 ####[facility] [address] [place] [address] Hemoglobin (Bld) [Mass/Vol] 15.3 g/dL Normal 13.5-17.5 [facility] Comment on above: Performed By: #### 1 0372025, 9391814, 0584181, 49910965, 0446659, 7841216, 49287696, 19145000 ####[facility] [address] [place] [address] MCH (RBC) [Entitic mass] 31.5 pg Normal 27.0-34.0 [facility] Comment on above: Performed By: #### 1 2520340, 4438064, 6523354, 61760508, 4357386, 9679300, 12372618, 42886689 ####[facility] [address] [place] [address] MCHC (RBC) [Mass/Vol] 34.4 g/dL Normal 31.4-36.0 [facility] Comment on above: Performed By: #### 1 0220919, 3219114, 0566686, 35196219, 9554910, 8126817, 00000113, 71858749 ####[address] [address] MCV (RBC) [Entitic vol] 91.6 fL Normal 80.0-100.0 [facility] Comment on above: Performed By: #### 1 6466276, 4508582, 9720505, 69973264, 1536461, 1900466, 74397710, 90843198 ####[address] [place] [address] Platelet mean volume (Bld) [Entitic vol] 8.4 fL Normal 6.4-10.8 [facility] Comment on above: Performed By: #### 1 2442499, 9837646, 3569859, 70886119, 0971111, 0217342, 15351708, 51400580 ####[facility] [address] [place] [address] Platelets (Bld) [#/Vol] 289.0 E9/L Normal 150.0-500.0 [facility] Comment on above: Performed By: #### 1 0518280, 7173472, 5774998, 52999545, 8865614, 7492305, 45854809, 71765955 ####[facility] [address] [place] [address] RBC (Bld) [#/Vol] 4.8 E12/L Normal 4.3-5.9 [facility] Comment on above: Performed By: #### 1 2423995, 7723798, 2721278, 37280669, 7707105, 3091676, 41772010, 34925702 ####[facility] [address] [place] [address] WBC corrected for nucl RBC Auto (Bld) [#/Vol] 9.9 E9/L Normal 4.0-11.[address] [facility] Comment on above: Performed By: #### 1 [id number], 3134831, 3163784, 45346363, 7379501, 0076030, 23072772, [id number] ####[address] [place] [address] CTA Cheston 08-24-2020 CTA Chest Exam Date/Time: [...] 370 Contrast amount in ml's: 78 Normal [facility] Consent for Treatmenton 08-07 Consent for Treatment [id number] 10 [id number] #1.00CD:127 Normal [facility] D-Dimeron 08-24-2020 Fibrin D-dimer FEU (PPP) [Mass/Vol] 845 ng/mL Abnormal 215-500 [facility] Comment on above: Result Comment: Resu [...] infections Liver cirrhosis Performed By: #### 1 [id number], 0581958, 6742758, 63143891, 9066056, 8693050, 08616046, [id number] ####[facility] [address] [place] [address] Discharge Instructionson Discharge Instructions [id number] #1.00CD:127 Normal [facility] ED Clinical Summaryon 2020 ED Clinical Summary [address] [address] ED Clinical Summary Person Information Name: LILIANA MICHAELS [place]ine[place] Age: 55 Years : 1965 Sex: Male Language: [place] Islander PCP: SIMONE JEAN BAPTISTE DC Marital Status: Single Phone: [phone] Visit Id: Visit Reason: Rib/trunk pain-swelling; SIDE [...] 08/24/2020 03:27:58 08/24/2020 03:27:58 08/24/2020 03:27:58 ADDRESS: [address] [place] [phone] PHYS DOC NOTES: MEDICAL INFORMATION: Prescriptions Given: New Medications [id number], [address], [place] [id number], [phone] azithromycin (Zithromax TRI-AMIRA 500 mg oral tablet) [...] With: Address: When: SIMONE JEAN BAPTISTE [address] [place] [address] Business (1) In 1 day 08/25/2020 Comments: Patient is advised to follow-up with his primary care physician in 1 to 2 days. He is also advised to come back to the emergency department if symptoms get worse. DIAGNOSIS: 1:Rib pain on left side Normal [facility] ED Note-Physicianon 08-25-19 ED Note-Physician Basic [...] 08/24/20 2:30:00 EDT Rapid COVID Antigen ([facility] [place]) Orders: albuterol-ipratropiu m, 3 mL, Soln-Inh, Inhalation, Once, Stop date 08/24/20 0:16:00 EDT, STAT, Start date 08/24/20 0:16:00 EDT azithromycin, 500 mg = 1 tab(s), Oral, Daily, # 3 tab(s), Refills(s) 0, Pharmacy: [id number], 163, cm, 08/24/20 0:04:00 EDT, Height/Length Dosing, 101, kg, 08/24/20 0:04:00 EDT, Weight Dosing famotidine, 20 mg = 1 tab(s), Tab, Oral, Once, Stop date 08/24/20 0:17:00 EDT, STAT, Start date 08/24/20 0:17:00 EDT lidocaine topical, 1 patch(es), Topical, Daily, 7 patch(es), Refill(s) 0, apply 12 hours on and 12 hours off daily, [id number], 163, cm, 08/24/20 0:04:00 EDT, Height/Length Dosing, 101, kg, 08/24/20 0:04:00 EDT, Julian (more content not included)... Normal [facility] Comment on above: Result Comment: Elec [...] Document Reviewed: 11/28/2008 ExitCare? Patient Information ?2015 [facility]. This information is not intended to replace advice given to you by your health care provider. Make sure you discuss any questions you have with your health care provider. Normal [facility] ED Patient Summaryon 021 ED Patient Summary [address] [address] Patient Discharge Instructions Person Information Name: BRANDOIZABELAPH Cem Age: 55 Years Arrival Date: 08/23/2020 23:48:11 Discharge Diagnosis: 1:Rib pain on left side Primary Care Physician: SIMONE JEAN BAPTISTE DC Provider Information Primary Provider: David Palacio MD Advanced Director Of Physician Practices:None The exam and treatment you received in the Emergency Department were for an urgent problem and are not intended as complete care. It is important that you follow up with a doctor, nurse practitioner, or physician?s assurance assistant for ongoing care. If your symptoms [...] Address: When: SIMONE JEAN BAPTISTE [address] [place] [address] [facility] (1) In 1 day 08/25/2020 Comments: [...] opioids can be used to help relieve kbpuepfn-lf-mrgxpi pain and are often prescribed following a [...] be struggling (more content not included)... Normal [facility] PT & PTTon 08-24-2020 aPTT Coag (PPP) [Time] 30.2 second(s) Normal 25.1-36.5 [facility] Comment on above: Result Comment: Hepa rin therapeutic range (represented by Anti-Factor Xa activity of 0.2 - 0.4 U/mL) corresponds to PTT of 56.6 - 109.0 sec. Performed By: #### 1 [id number], 4632320, 1489575, 59869737, 8955881, 9167891, 51321024, 20524741 ####[facility] [address] [place] [address] INR Coag (PPP) [Relative time] 1.0 {INR} Invalid Interpretation Code [facility] Comment on above: Result Comment: INR results are specifically intended to assess patients stabilized on long-term Anticoagulation therapy suggested INR?s ?Less Intensive Anticoagulation? 2.0 ? 3.0 Conventional Range 3.0 ? 4.5 Performed By: #### 1 8511743, 0489456, 1467790, 47608361, 5332232, 7882388, 39578538, 60579657 ####[facility] [address] [place] [address] PT Coag (PPP) [Time] 11.6 second(s) Normal 10.2-12.9 [facility] Comment on above: Performed By: #### 1 6368981, 5939324, 6998165, 19228364, 9298320, 4915213, 12966732, 61146240 ####[facility] [address] [place] [address] RAD - Preliminary Cat Scan R eporton 08-24-2020 RAD - Preliminary Cat Scan Report [id number] #1.00CD:127 Normal [facility] Rapid COVID Antigen (MC)on 08-24-2020 Rapid COV Int NEG Ctl Pass Normal [facility] Comment on above: Performed By: #### 2 [id number] ####[address] [place] [address] Rapid COV Int POS Ctl Pass Normal [facility] Comment on above: Performed By: #### 2 [id number] ####[address] [address] SARS-CoV-2 (COVID-19) RNA KATT+probe Ql (Unsp spec) Not detected Normal Not Detected [facility] Comment on above: Result Comment: The [employer] System for Rapid Detection of SARS-CoV-2 is [...] or revoked sooner. Performed By: #### 2 [id number] ####[address] [address] Employed in Healthcare NO Normal [facility] Comment on above: Performed By: #### 2 [id number] ####[address] [place] [address] First Test Unknown [facility] Comment on above: Performed By: #### 2 [id number] ####[address] [place] [address] Hospitalized? NO Normal [facility] Comment on above: Performed By: #### 2 [id number] ####[address] [place] [address] ICU NO [facility] Comment on above: Performed By: #### 2 [id number] ####[address] [facility] [place] [address] ? NO [facility] Comment on above: Performed By: #### 2 [id number] ####[address] [place] [address] Resides in a Congregate Care Setting NO [facility] Comment on above: Performed By: #### 2 [id number] ####[address] [place] [address] Symptomatic as defined by [facility] YES Normal [facility] Comment on above: Performed By: #### 2 [id number] ####[address] [place] [address] Troponin 0 Hr.on 08-24-2020 Troponin I.cardiac [Mass/Vol] 4.10 pg/mL Low 15.90-38.40 [facility] Comment on above: Result Comment: The 95% CI (Confidence Interval) PPV (Positive Predictive Value) for myocardial infarction in females is 38 pg/mL, in males 51 pg/mL. The results should be used in conjunction with clinical conditions of myocardial infarction. (Access High Sensitivity Troponin I Instructions For Use, [employer] Plan, December 2017) Performed By: #### 1 7726638, 0590076, 4000467, 87565537, 1785931, 3781542, 63965025, 30083600 ####[address] [place] [address] Troponin 3 Hr.on 08-24-2020 Troponin I.cardiac [Mass/Vol] 4.40 pg/mL Low 15.90-38.40 [facility] Comment on above: Result Comment: The 95% CI (Confidence Interval) PPV (Positive Predictive Value) for myocardial infarction in females is 38 pg/mL, in males 51 pg/mL. The results should be used in conjunction with clinical conditions of myocardial infarction. (Access High Sensitivity Troponin I Instructions For Use, [employer] Business Plan, December 2017) Performed By: #### 1 [id number] ####[address] [place] [address] XR Chest Single Viewon 08-24 XR Chest Single View Exam Date/Time: 08/24/2020 01:04 EDT Reason for Exam: Cough Report IMPRESSION: THERE ARE NO FOCAL INFILTRATES OR EFFUSIONS. CLINICAL HISTORY: Cough COMPARISON: NONE. FINDINGS: The cardiomediastinal silhouette is unremarkable. The lungs are free of infiltrates effusions or consolidations. The bones and soft tissues are within normal limits. FINAL REPORT Dictated: 08/24/2020 8:[address], Tomer Burch Signed (Electronic Signature): 08/24/2020 8:19 am Signed by: Tomer Reis MD, V. Transcribed by: VIVIAN Technologist: DAT Perry [facility] eGFRon 08-24-2020 GFR/1.73 sq M.predicted among blacks MDRD (S/P/Bld) [Vol rate/Area] mL/min/{1.73_m2} Normal >=59 [facility] Comment on above: Order Comment: Order added by Discern Expert. Result Comment: eGFR is race adjusted. AA=. Performed By: #### 1 [id number], 1711531, 5464894, 27598737, 6196444, 2660512, 83005711, 01442231 ####[facility] [address] [place] [address] GFR/1.73 sq M.predicted among non-blacks MDRD (S/P/Bld) [Vol rate/Area] mL/min/{1.73_m2} Normal >=59 [facility] Comment on above: Order Comment: Order added by Discern Expert. Result Comment: Gaming Manager jeniffer kidney disease could be indicated at eGFR's of less than 60 mL/min/1.73m2. Kidney failure is indicated at less than 15 mL/min/1.73m2. Performed By: #### 1 9067469, 2011480, 4285077, 07068377, 5154658, 0042316, 01071521, 63252413 ####[facility] [address] [place] [address] HIP RIGHT 1 OR 2 VWS WITH PE LVISon 07-24-2020 HIP RIGHT 1 OR 2 VWS WITH PELVIS [facility] Department of Radiology [address] [place] [address] Patient Name: LILIANA MICHAELS : [...] Electronically signed: Ana M Mariee. Transcribed by: [email or web address], User Resident: Electronically Signed by: ANA M MARIEE @ 07/24/2020 10:01 AM Normal [facility] Comment on above: Order Comment: Views (X-RAY, HIP): Radiologic Protocol HIP RIGHT 1 OR 2 VWS WITH PE LVISon 04-24-2020 HIP RIGHT 1 OR 2 VWS WITH PELVIS [facility] Department of Radiology [address] [place] [phone] Patient Name: LILIANA MICHAELS : 1965 [...] abnormality. Electronically signed: Ed España. Transcribed by: [email or web address], User Resident: Electronically Signed by: ED ESPAÑA @ 04/25/2020 08:22 AM Normal [facility] Comment on above: Order Comment: Views (X-RAY, HIP): Radiologic Protocol Operative Reporton 0 Operative Report MR#: [id number] [facility] Pt. Name: Liliana Michaels Room #: 6AB [id number] Discharge 03/15/2020 Date: Birthdate: 1965 OPERATIVE REPORT DATE OF SURGERY: 03/14/2020 SURGEON: Jey Elise MD PREOPERATIVE DIAGNOSIS: Right hip degenerative joint disease. POSTOPERATIVE DIAGNOSIS: Right hip degenerative joint disease. OPERATIVE PROCEDURE DONE: Right total hip arthroplasty through a direct anterior approach. ASSISTANTS: 1. David Pratt M.D. 2. Dontrell Brown, SA. ESTIMATED BLOOD LOSS: 100 mL. ANESTHESIA: [...] a (more content not included)... Normal [facility] BASIC METABOLIC PANELon 11-0 -2020 Calcium [Mass/Vol] 8.8 mg/dL Normal 8.6-10.3 [facility] Comment on above: Order Comment: Views (X-RAY, HIP): Radiologic Protocol Performed By: #### 0 0071 ####[facility] [place] [address], [place] Chloride [Moles/Vol] 98 mmol/L Normal 98-107 [facility] Comment on above: Order Comment: Views (X-RAY, HIP): Radiologic Protocol Performed By: #### 0 0071 ####[facility] [place] [address], [facility] CO2 [Moles/Vol] 30 mmol/L Normal 21-31 [facility] Comment on above: Order Comment: Views (X-RAY, HIP): Radiologic Protocol Performed By: #### 0 0071 ####[facility] [place] [address], [facility] Creatinine [Mass/Vol] 0.96 mg/dL Normal 0.70-1.30 [facility] Comment on above: Order Comment: Views (X-RAY, HIP): Radiologic Protocol Performed By: #### 0 0071 ####[facility] [place] [address], [facility] GFR/1.73 sq M.predicted among blacks MDRD (S/P/Bld) [Vol rate/Area] mL/min/{1.73_m2} Normal >60 [facility] Comment on above: Order Comment: Views (X-RAY, HIP): Radiologic Protocol Performed By: #### 0 0071 ####[facility] [place] [address], [facility] GFR/1.73 sq M.predicted among non-blacks MDRD (S/P/Bld) [Vol rate/Area] mL/min/{1.73_m2} Normal >60 [facility] Comment on above: Order Comment: Views (X-RAY, HIP): Radiologic Protocol Performed By: #### 0 0071 ####[facility] [place] [address], [facility] Glucose [Mass/Vol] 151 mg/dL High 70-100 [facility] Comment on above: Order Comment: Views (X-RAY, HIP): Radiologic Protocol Performed By: #### 0 0071 ####[facility] [place] [address], [facility] Potassium [Moles/Vol] 4.4 mmol/L Normal 3.5-5.1 [facility] Comment on above: Order Comment: Views (X-RAY, HIP): Radiologic Protocol Performed By: #### 0 0071 ####[facility] Sodium [Moles/Vol] 133 mmol/L Low 136-145 [facility] Comment on above: Order Comment: Views (X-RAY, HIP): Radiologic Protocol Performed By: #### 0 0071 ####[facility] Urea nitrogen [Mass/Vol] 20 mg/dL Normal 7-25 [facility] Comment on above: Order Comment: Views (X-RAY, HIP): Radiologic Protocol Performed By: #### 0 0071 ####[facility] CBC COMPLETE BLOOD COUNTon 05-15-2019 Erythrocyte distribution width (RBC) [Ratio] 12.2 % Normal 11.5-15.0 [facility] Comment on above: Order Comment: No: D o not add to previous draw Performed By: #### 5 0608 #### [facility] [address] [place] [address], [facility] Hematocrit (Bld) [Volume fraction] 42.2 % Normal 39.0-50.0 [facility] Comment on above: Order Comment: No: D o not add to previous draw Performed By: #### 5 0608 #### [facility] [address] [place] [address], [facility] Hemoglobin (Bld) [Mass/Vol] 13.9 g/dL Normal 13.0-17.0 [facility] Comment on above: Order Comment: No: D o not add to previous draw Performed By: #### 5 0608 #### [facility] [address] [place] [id number], [facility] MCH (RBC) [Entitic mass] 31.4 pg Normal 27.0-33.0 [facility] Comment on above: Order Comment: No: D o not add to previous draw Performed By: #### 5 0608 #### [facility] [address] [place] [address], [facility] MCHC (RBC) [Mass/Vol] 32.9 g/dL Normal 32.0-35.0 [facility] Comment on above: Order Comment: No: D o not add to previous draw Performed By: #### 5 0608 #### [facility] [address] [place] [address], [facility] MCV (RBC) [Entitic vol] 95.5 fL Normal 82.0-98.0 T he [facility] Comment on above: Order Comment: No: D o not add to previous draw Performed By: #### 5 0608 #### [facility] [address] [place] [address], [facility] Nucleated RBC/100 WBC (Bld) [Ratio] 0 % Normal 0-0 [facility] Comment on above: Order Comment: No: D o not add to previous draw Performed By: #### 5 0608 #### [facility] [address] [place] [address], [facility] [address]AT [address] 254 10*3/uL Normal 150-400 [facility] Comment on above: Order Comment: No: D o not add to previous draw Performed By: #### 5 0608 #### [facility] [address] [facility] [place] [address], [facility] RBC (Bld) [#/Vol] 4.42 10*6/uL Normal 4.20-5.70 [facility] Comment on above: Order Comment: No: D o not add to previous draw Performed By: #### 5 0608 #### [facility] [address] [facility] [place] [address], [facility] WBC (Bld) [#/Vol] 14.44 10*3/uL High 4.00-10.60 [facility] Comment on above: Order Comment: No: D o not add to previous draw Performed By: #### 5 0608 #### [facility] [address] POC GLUCOSE LABon 03-15-2020 Glucose [Mass/Vol] 193 mg/dL High 70-100 [facility] Comment on above: Performed By: #### 8 5499 #### [facility] [address] [place] [address], [facility] CBC W/DIFFon 03-14-2020 ABS IMM GRANS 0.2 10*3/uL Normal 0.0-0.2 [facility] Comment on above: Performed By: #### 5 0103 ####[facility] ABS NEUTROPHILS 8.0 10*3/uL High 1.6-7.6 [facility] Comment on above: Performed By: #### 5 0103 ####[facility] [place] [address], [facility] Basophils (Bld) [#/Vol] 0.1 10*3/uL Normal 0.0-0.2 [facility] Comment on above: Performed By: #### 5 0103 ####[facility] [place] [address], [facility] Basophils/100 WBC (Bld) 1.1 % High 0.0-1.0 T he [facility] Comment on above: Performed By: #### 5 0103 ####[facility] [place] [address], [facility] Eosinophils (Bld) [#/Vol] 0.3 10*3/uL Normal 0.0-0.5 [facility] Comment on above: Performed By: #### 5 0103 ####[facility] [facility] [place] [address], [facility] Eosinophils/100 WBC (Bld) 2.7 % Normal 0.0-6.0 [facility] Comment on above: Performed By: #### 5 3 ####[facility] [facility].[address] Erythrocyte distribution width (RBC) [Ratio] 12.3 % Normal 11.5-15.0 [facility] Comment on above: Performed By: #### 5 3 ####[facility] [facility].[address] Hematocrit (Bld) [Volume fraction] 50.5 % High 39.0-50.0 [facility] Comment on above: Performed By: #### 5 3 ####[facility] Hemoglobin (Bld) [Mass/Vol] 17.3 g/dL High 13.0-17.0 [facility] Comment on above: Performed By: #### 5 3 ####[facility] IMMATURE GRANS 1.4 % High 0.0-1.0 [facility] Comment on above: Performed By: #### 5 3 ####[facility] [facility].[address] Lymphocytes (Bld) [#/Vol] 1.8 10*3/uL Normal 1.2-4.0 [facility] Comment on above: Performed By: #### 3 ####[facility] [place] [address], [facility] Lymphocytes/100 WBC (Bld) 15.6 % Low 20.0-45.0 [facility] Comment on above: Performed By: #### 5 0103 ####[facility] MCH (RBC) [Entitic mass] 31.7 pg Normal 27.0-33.0 [facility] Comment on above: Performed By: #### 5 0103 ####[facility] MCHC (RBC) [Mass/Vol] 34.3 g/dL Normal 32.0-35.0 [facility] Comment on above: Performed By: #### 5 0103 ####[facility] MCV (RBC) [Entitic vol] 92.7 fL Normal 82.0-98.0 T he [facility] Comment on above: Performed By: #### 5 0103 ####[facility] Monocytes (Bld) [#/Vol] 0.9 10*3/uL Normal 0.1-1.0 [facility] Comment on above: Performed By: #### 5 3 ####[facility] MONOS 8.2 % Normal 5.0-12.0 [facility] Comment on above: Performed By: #### 5 3 ####[facility] Neutrophils/100 WBC (Bld) 71.0 % Normal 40.0-72.0 [facility] Comment on above: Performed By: #### 5 3 ####[facility] Nucleated RBC/100 WBC (Bld) [Ratio] 0 % Normal 0-0 [facility] Comment on above: Performed By: #### 5 0103 ####[facility] [facility].[address] PLAT CNT 301 10*3/uL Normal 150-400 [facility] Comment on above: Performed By: #### 5 0103 ####[facility] [place] [address], [facility] RBC (Bld) [#/Vol] 5.45 10*6/uL Normal 4.20-5.70 [facility] Comment on above: Performed By: #### 5 0103 ####[facility] [facility] [place] [address], [facility] WBC (Bld) [#/Vol] 11.22 10*3/uL High 4.00-10.60 [facility] Comment on above: Performed By: #### 5 0103 ####[facility] HIP RIGHT 1 OR 2 VWS WITH PE LVISon 03-14-2020 HIP RIGHT 1 OR 2 VWS WITH PELVIS [facility] Department of Radiology [address] [place] [id number] Patient Name: LILIANA MICHAELS : 1965 [...] purposes Electronically signed: Aria Steinberg. Transcribed by: [email or web address], User Resident: Electronically Signed by: ARIA STEINBERG @ 03/14/2020 03:44 PM Normal [facility] Comment on above: Order Comment: RT TH A POC GLUCOSE LABon 03-14-2020 Glucose [Mass/Vol] 222 mg/dL High 70-100 [facility] Comment on above: Performed By: #### 8 5499 #### [facility] [address] [place] [address], [facility] Glucose [Mass/Vol] 217 mg/dL High 70-100 [facility] Comment on above: Performed By: #### 8 5499 ####[facility] [place] [address], [place] Glucose [Mass/Vol] 141 mg/dL High 70-100 [facility] Comment on above: Performed By: #### 8 5499 #### [facility] [address] [place] [address], [place] PORTABLE HIP RIGHT 1 OR 2 VW S WITH PELVISon 03-14-2020 PORTABLE HIP RIGHT 1 OR 2 VWS WITH PELVIS [facility] Department of Radiology [address] [place] [phone] Patient Name: LILIANA MICHAELS : 1965 [...] air Electronically signed: Aria Steinberg. Transcribed by: [email or web address], User Resident: Electronically Signed by: ARIA STEINBERG @ 03/14/2020 03:46 PM Normal [facility] Comment on above: Order Comment: Hardw are Evaluation, AP/Lateral TYPE AND SCREENon 03-14-2020 ABO INTERPRETATION O Normal [facility] Comment on above: Performed By: #### 6 2586 ####[facility] [place] [address], [facility] RH INTERPRETATION Positive Normal [facility] Comment on above: Performed By: #### 6 2586 ####[facility] [place] [address], [facility] Vital Signs Date Time Vital Sign Value Performing Clinician Facility 06-13-2024 09:07-0500 Body height 162.6 cm Valentino Ty MD Work Phone: [facility] 06-13-2024 09:07-0500 Body mass index (BMI) [Ratio] 36.39 kg/m2 Valentino Ty MD Work Phone: [facility] 06-13-2024 09:07-0500 Body weight 96.16 kg Valentino Ty MD Work Phone: [facility] 06-13-2024 09:07-0500 Diastolic blood pressure 74 mm[Hg] Valentino Ty MD Work Phone: [facility] 06-13-2024 09:07-0500 Heart rate 80 /min Valentino Ty MD Work Phone: [facility] 06-13-2024 09:07-0500 Systolic blood pressure 132 mm[Hg] Valentino Ty MD Work Phone: [facility] 06-06-2024 09:47-0500 Body height 162.6 cm Ishmael Simon MD Work Phone: [facility] 06-06-2024 09:47-0500 Body mass index (BMI) [Ratio] 36.56 kg/m2 Ishmael Simon MD Work Phone: [facility] 06-06-2024 09:47-0500 Body temperature 97.81 [degF] Ishmael Simon MD Work Phone: [facility] 06-06-2024 09:47-0500 Body weight 96.62 kg Ishmael Simon MD Work Phone: [facility] 06-06-2024 09:47-0500 Diastolic blood pressure 64 mm[Hg] Ishmael Simon MD Work Phone: [facility] 06-06-2024 09:47-0500 Heart rate 85 /min Ishmael Simon MD Work Phone: [facility] 06-06-2024 09:47-0500 Respiratory rate 22 /min Ishmael Simon MD Work Phone: [facility] 06-06-2024 09:47-0500 SaO2% (BldA) [Mass fraction] 92 % Ishmael Simon MD Work Phone: [facility] 06-06-2024 09:47-0500 Systolic blood pressure 132 mm[Hg] Ishmael Simon MD Work Phone: [facility] 05-23-2024 08:30-0500 Body height 162.6 cm Amador Son MD Work Phone: [facility] 05-23-2024 08:30-0500 Body mass index (BMI) [Ratio] 37.76 kg/m2 Amador Son MD Work Phone: [facility] 05-23-2024 08:30-0500 Body weight 99.79 kg Amador Son MD Work Phone: [facility] 05-23-2024 08:30-0500 Diastolic blood pressure 78 mm[Hg] Amador Son MD Work Phone: [facility] 05-23-2024 08:30-0500 Heart rate 74 /min Amador Son MD Work Phone: [facility] 05-23-2024 08:30-0500 Systolic blood pressure 118 mm[Hg] Amador Son MD Work Phone: [facility] 04-24-2024 11:05-0500 Body height 162.6 cm [...] Ishmael Simon MD Work Phone: [facility] 12-07-2023 09:57-0400 Body height 162.6 cm Roc Ramsey DO Work Phone: [facility] 12-07-2023 09:57-0400 Body mass index (BMI) [Ratio] 35.87 kg/m2 Roc Ramsey DO Work Phone: [facility] 12-07-2023 09:57-0400 Body weight 94.8 kg Roc Ramsey DO Work Phone: [facility] 12-07-2023 09:57-0400 Diastolic blood pressure 78 mm[Hg] Roc Ramsey DO Work Phone: [facility] 12-07-2023 09:57-0400 Systolic blood pressure 149 mm[Hg] Roc Ramsey DO Work Phone: [facility] 11-09-2023 10:10-0400 Body height 162.6 cm Naima Wright SPORTS INFORMATION DIRECTOR-RADIOGRAPHER CARDIAC CATHETERIZATION Work Phone: [facility] 11-09-2023 10:10-0400 Body mass index (BMI) [Ratio] 35.27 kg/m2 Naima Wright SPORTS INFORMATION DIRECTOR-RADIOGRAPHER CARDIAC CATHETERIZATION Work Phone: [facility] 11-09-2023 10:10-0400 Body weight 93.21 kg Naima Wright SPORTS INFORMATION DIRECTOR-RADIOGRAPHER CARDIAC CATHETERIZATION Work Phone: [facility] 11-09-2023 10:10-0400 Diastolic blood pressure 66 mm[Hg] Naima Wright SPORTS INFORMATION DIRECTOR-RADIOGRAPHER CARDIAC CATHETERIZATION Work Phone: [facility] 11-09-2023 10:10-0400 Heart rate 68 /min Naima Wright SPORTS INFORMATION DIRECTOR-RADIOGRAPHER CARDIAC CATHETERIZATION Work Phone: [facility] 11-09-2023 10:10-0400 Systolic blood pressure 98 mm[Hg] Naima MURILLO Work Phone: [facility] 08-10-2023 13:31-0400 Body height 162.6 cm Amador Son MD Work Phone: [facility] 08-10-2023 13:31-0400 Body mass index (BMI) [Ratio] 34.67 kg/m2 Amador Son MD Work Phone: [facility] 08-10-2023 13:31-0400 Body weight 91.63 kg Amador Son MD Work Phone: [facility] 08-10-2023 13:31-0400 Diastolic blood pressure 70 mm[Hg] Amador Son MD Work Phone: [facility] 08-10-2023 13:31-0400 Heart rate 69 /min Amador Son MD Work Phone: [facility] 08-10-2023 13:31-0400 Systolic blood pressure 116 mm[Hg] Amador Son MD Work Phone: [facility] 08-05-2023 17:30-0400 Diastolic blood pressure 67 mm[Hg] Amador Son MD Work Phone: [facility] 08-05-2023 17:30-0400 Heart rate 60 /min Amador Son MD Work Phone: [facility] 08-05-2023 17:30-0400 Respiratory rate 16 /min Amador Son MD Work Phone: [facility] 08-05-2023 17:30-0400 SaO2% (BldA) [Mass fraction] 96 % Amador Son MD Work Phone: [facility] 08-05-2023 17:30-0400 Systolic blood pressure 112 mm[Hg] Amador Son MD Work Phone: [facility] 08-05-2023 12:13-0400 Body height 162.6 cm Amador Son MD Work Phone: [facility] 08-05-2023 12:13-0400 Body mass index (BMI) [Ratio] 34.17 kg/m2 Amador Son MD Work Phone: [facility] 08-05-2023 12:13-0400 Body temperature 97.5 [degF] Amador Son MD Work Phone: [facility] 08-05-2023 12:13-0400 Body weight 90.3 kg Amador Son MD Work Phone: [facility] 07-22-2023 14:38-0400 Body height 162.6 cm Amador Son MD Work Phone: [facility] 07-22-2023 14:38-0400 Body mass index (BMI) [Ratio] 34.33 kg/m2 Amador Sno MD Work Phone: [facility] 07-22-2023 14:38-0400 Body weight 90.72 kg Amador Son MD Work Phone: [facility] 07-22-2023 14:38-0400 Diastolic blood pressure 90 mm[Hg] Amador Son MD Work Phone: [facility] 07-22-2023 14:38-0400 Heart rate 41 /min Amador Son MD Work Phone: [facility] 07-22-2023 14:38-0400 Systolic blood pressure 138 mm[Hg] Amador Son MD Work Phone: [facility] 07-14-2022 10:57-0500 Body height 162.56 cm Ishmael Simon Work Phone: [facility] [place] [address] DO Work Phone: 07-14-2022 10:57-0500 Body mass index (BMI) [Ratio] 32.96 kg/m2 Ishmael Simon Work Phone: [facility] 600 DO Work Phone: 07-14-2022 10:57-0500 Body surface area Derived from formula 1.92 m2 Ishmael A Naderer Work Phone: [facility] 600 DO Work Phone: 07-14-2022 10:57-0500 Body weight 87.09 kg Ishmael A Naderer Work Phone: [facility] 600 DO Work Phone: 07-14-2022 10:57-0500 Diastolic blood pressure 64 mm[Hg] Ishmael A Naderer Work Phone: [facility] 600 DO Work Phone: 07-14-2022 10:57-0500 Heart rate 34 /min Ishmael A Naderer Work Phone: [facility] [employer] 600 DO Work Phone: 07-14-2022 10:57-0500 Systolic blood pressure 118 mm[Hg] Ishmael A Naderer Work Phone: [facility] [employer] [facility] 600 DO Work Phone: 01-28-2022 09:37-0400 Body height 162.56 cm Ishmael A Naderer Work Phone: [facility] 600 DO Work Phone: 01-28-2022 09:37-0400 Body mass index (BMI) [Ratio] 30.9 kg/m2 Ishmael A Naderer Work Phone: [facility] 600 DO Work Phone: 01-28-2022 09:37-0400 Body surface area Derived from formula 1.87 m2 Ishmael A Naderer Work Phone: [facility] 600 DO Work Phone: 09-22-2022 09:37-0400 Body weight 81.65 kg Ishmael Simon Work Phone: [facility] [place] 600 DO Work Phone: 01-28-2022 09:37-0400 Diastolic blood pressure 50 mm[Hg] Ishmael Simon Work Phone: [facility] [place] 600 DO Work Phone: 01-28-2022 09:37-0400 Heart rate 41 /min Ishmael Simon Work Phone: [facility] [place] 600 DO Work Phone: 01-28-2022 09:37-0400 Systolic blood pressure 112 mm[Hg] Ishmael Carterr Work Phone: [facility] [place] 600 DO Work Phone: Encounters Encounter Date Encounter Type Care Provider Facility Start: 06-26-2024 End: 06-26-2024 Red Simon MD Work Phone: [facility] Comment on above: Degeneration of lumb ar intervertebral disc Start: 06-14-2024 End: 06-14-2024 Clinisync Result Encounter Generic External Data Provider [facility] External Department Unsolicited Start: 06-14-2024 End: 06-14-2024 Clinisync Result Encounter Generic External Data Provider [facility] External Department Unsolicited Start: 06-13-2024 End: 06-13-2024 Office outpatient visit 25 minutes Valentino Ty MD Work Phone: [facility] Comment on above: Sick sinus syndrome (Multi) (Primary Dx); Chronotropic incompetence; Peripheral vascular disease, unspecified ([facility]-HCC); Pacemaker; Essential hypertension, benign; Sinus bradycardia; Hyperlipidemia, unspecified hyperlipidemia type; Dyspnea on exertion; BMI 37.0-37.9, adult; Former smoker; Mild coronary artery disease Start: 06-13-2024 End: 06-13-2024 [facility] Start: 06-06-2024 End: 06-06-2024 Bamboo flowsheet Ishmael Simon MD Work Phone: [facility] Start: 06-06-2024 End: 06-06-2024 Bamboo flowsheet Ishmael Simon MD Work Phone: [facility] Start: 06-06-2024 End: 06-06-2024 Office outpatient visit 15 minutes Ishmael Simon MD Work Phone: [facility] Comment on above: Chronic obstructive pulmonary disease [...] 05-29-2024 Refill Ishmael Simon MD Work Phone: [facility] Comment on above: Degeneration of lumb ar intervertebral disc Start: 05-28-2024 End: 05-28-2024 Refill Mary Cade MA [facility] Comment on above: Degeneration of lumb ar intervertebral disc Start: 05-27-2024 End: 05-29-2024 Clinisync Result Encounter Generic External Data Provider [facility] External Department Unsolicited Start: 05-27-2024 End: 05-29-2024 Clinisync Result Encounter Generic External Data Provider [facility] External Department Unsolicited Start: 05-23-2024 End: 05-23-2024 Office outpatient visit 25 minutes Amador Son MD Work Phone: [facility] Comment on above: Cardiac pacemaker in situ (Primary Dx); Sick sinus syndrome (Multi); MRI safe cardiac pacemaker in situ; Abnormal EKG; Chronotropic incompetence; Sinoatrial node dysfunction (Multi); Sinus bradycardia; Current smoker; BMI 37.0-37.9, adult Start: 05-23-2024 End: 05-23-2024 Subsequent hospital visit by physician [facility] Comment on above: Sinus bradycardia; Sick sinus syndrome (Multi); Chronotropic incompetence; MRI safe cardiac pacemaker in situ Start: 05-23-2024 End: 05-23-2024 [facility] Start: 04-27-2024 End: 04-27-2024 Refill Ishmael Simon MD Work Phone: [facility] Comment on above: Degeneration of lumb ar intervertebral disc Start: 04-24-2024 End: 04-24-2024 Bamboo flowsheet Ishmael Simon MD Work Phone: [facility] Start: 04-24-2024 End: 04-24-2024 Bamboo flowsheet Ishmael Simon MD Work Phone: [facility] Start: 04-24-2024 End: 04-24-2024 Clinisync Result Encounter Ishmael Simon MD Work Phone: [facility] External Department Unsolicited Start: 04-24-2024 End: 04-24-2024 Patient encounter procedure Ishmael Simon MD Work Phone: [facility] Healthcare Work Phone: Start: 04-24-2024 End: 04-24-2024 Postop follow up visit related to original px Ishmael Simon MD Work Phone: [facility] Comment on above: Medicare annual well ness visit, subsequent (Primary Dx); Type 2 diabetes mellitus with hyperglycemia, without long-term current use of insulin ([facility]/HCC); Essential hypertension, benign (CMS/HCC); Class 2 severe obesity due to excess calories with serious comorbidity and body mass index (BMI) of 37.0 to 37.9 in adult (CMS/HCC) Start: 04-24-2024 End: 04-24-2024 ambulatory ISHMAEL SIMON Not Available Start: 04-16-2024 End: 04-16-2024 ambulatory [facility] Start: 03-30-2024 End: 03-30-2024 Refill Ishmael Simon MD Work Phone: [facility] Comment on above: Degeneration of lumb ar intervertebral disc Start: 03-27-2024 End: 03-27-2024 Patient encounter procedure Ishmael Simon MD Work Phone: [facility] [place] Work Phone: Start: 03-27-2024 End: 03-27-2024 ambulatory Ishmael Simon MD Work Phone: [facility] Work Phone: Start: 03-16-2024 End: 03-16-2024 ambulatory Danielle Bergeron Facility:[facility] Start: 03-16-2024 Non-patient / Non-visit [facility] Start: 03-01-2024 End: 03-01-2024 Refill Ishmael Simon MD Work Phone: [facility] Comment on above: Degeneration of lumb ar intervertebral disc Start: 02-14-2024 End: 02-14-[address] [facility] Start: 02-14-2024 End: 02-14-2024 Subsequent hospital visit by physician Varsha Vance [facility] Comment on above: Cardiac pacemaker [...] 15 minutes Ishmael Simon MD Work Phone: [facility] Comment on above: Dysuria (Primary Dx) ; Acute prostatitis; Pyuria Start: 02-02-2024 End: 02-03-2024 Refill Ishmael Simon MD Work Phone: [facility] Comment on above: Other intervertebral disc degeneration, lumbar region; Degeneration of lumbar or lumbosacral intervertebral disc Start: 01-27-2024 End: 01-27-2024 Refill Ishmael Simon MD Work Phone: [facility] Comment on above: Degeneration of lumb ar intervertebral disc Start: 01-25-2024 End: 01-25-[address] [facility] Start: 01-25-2024 End: 01-25-2024 Subsequent hospital visit by physician Varsha Restrepo [facility] Comment on above: Cardiac pacemaker in situ; Sinoatrial node dysfunction (Multi) Start: 01-13-2024 End: 01-13-2024 Bamboo flowsheet Ishmael Simon MD Work Phone: [facility] Start: 01-13-2024 End: 01-13-2024 Bamboo flowsheet Ishmael Simon MD Work Phone: [facility] Start: 01-13-2024 End: 01-13-2024 Office outpatient visit 25 minutes Ishmael Simon MD [facility] Comment on above: Type 2 diabetes [...] Ishmael Simon MD Work Phone: [facility] Comment on above: Degeneration of lumb ar intervertebral disc Start: 12-26-2023 End: 12-26-2023 Telephone encounter Sheri Chau CMA [facility] Start: 12-14-2023 End: 12-14-2023 Orders Only Sheri Chau CMA [facility] Comment on above: Claudication (CMS-HC C) (Primary Dx) Start: 12-07-2023 End: 12-07-2023 Office outpatient visit 25 minutes Roc Ramsey DO [facility] Comment on above: Right leg pain (Prim ruben Dx); Tobacco abuse; Class 3 severe obesity due to excess calories with serious comorbidity in adult, unspecified BMI (CMS-HCC); Left inguinal hernia; Claudication (CMS-HCC) Start: 12-01-2023 End: 12-01-2023 ambulatory [facility] Ambulatory Start: 11-09-2023 End: 11-09-2023 Office outpatient visit 40 minutes Naima Wright APRN-SHE Work Phone: [facility] Comment on above: MRI safe cardiac pac [...] by physician [facility] Comment on above: Pacemaker Start: 11-09-2023 End: 11-09-2023 amb[address] [facility] Start: 10-10-2023 End: 10-10-2023 ambulatory ISHMAEL SIMON Not Available Start: 09-26-2023 End: 09-26-2023 ambulatory AMADOR Sgeura [facility] Start: 09-26-2023 End: 09-26-2023 Subsequent hospital visit by physician Varsha Device Remote [facility] Comment on above: Cardiac pacemaker in situ; Sinoatrial node dysfunction (Multi) Start: 08-12-2023 End: 08-12-2023 [facility] Start: 08-10-2023 End: 08-10-2023 Subsequent hospital visit by physician Varsha Chapa 3 [facility] Comment on above: Localized swelling o n left hand; S/P placement of cardiac pacemaker Start: 08-10-2023 End: 08-10-2023 ambulatory NAIMA BAR[facility]OURGAIL [facility] Start: 08-10-2023 End: 08-10-2023 Office outpatient visit 25 minutes Amador Son MD Work Phone: [facility] Comment on above: Chronotropic incompe tence (Primary Dx); Abnormal stress test; Sinus bradycardia; Sick sinus syndrome (CMS/HCC); Essential hypertension, benign; BMI 34.0-34.9,adult; Current smoker Start: 08-05-2023 End: 08-05-2023 Subsequent hospital visit by physician Amador Son MD Work Phone: [facility] Comment on above: Sinus bradycardia (P rimary Dx); Chronotropic incompetence; Sick sinus syndrome (CMS/HCC); Other fatigue; Abnormal stress test; Dyspnea; Pacemaker Start: 07-22-2023 End: 07-22-2023 ambulatory [facility] Start: 07-22-2023 End: 07-22-2023 Encounter for preprocedural cardiovascular examination [facility] Start: 07-22-2023 End: 07-22-2023 Office outpatient new 60 minutes Amador Son MD Work Phone: [facility] Comment on above: Chronotropic incompe tence (Primary Dx); Sinus bradycardia; Establishing care with new doctor, encounter for; BMI 34.0-34.9,adult; Sick sinus syndrome (CMS/HCC); Simple chronic bronchitis (CMS/HCC); Current smoker; Other fatigue; Preoperative cardiovascular examination Start: 07-22-2023 End: 07-22-2023 Patient encounter status Amador Son MD Work Phone: [facility] Work Phone: Start: 07-13-2023 End: 07-13-2023 ambulatory [facility] Ambulatory Start: 07-13-2023 End: 07-13-2023 ambulatory [facility] Ambulatory Start: 10-14-2022 ambulatory [...] sit 15 minutes Ishmael Simon Work Phone: [facility] 600 DO Work Phone: Start: [...] 02-16-2022 Chart Update Ishmael Simon Work Phone: [facility] 250 DO Work Phone: Start: 02-15-[address] Valentino Ty Facility:[id number] Start: 01-28-[address] Ishmael Simon Facility: Start: 01-28-2022 Office consultation new/estab patient 60 min Ishmael Simon Work Phone: [facility] 600 DO Work Phone: Start: 01-14-2022 End: 01-15-2022 ambulatory YOLA COLMENARES . Facility:[facility] Start: 01-01-2022 End: 01-02-[address] ISHMAEL SIMON Facility:[facility] Start: 12-15-2021 End: 12-15-[address] RICKY IBARRA . Facility:[facility] Start: 12-14-2021 Encounter for preprocedural laboratory examination DR RICKY IBARRA . [facility] Start: 12-12-2021 End: 12-13-[address] ISHMAEL SIMON Facility:[facility] Start: 12-12-2021 End: 12-13-2021 Encounter for preprocedural laboratory examination DR ISHMAEL SIMON Facility:[facility] Start: 12-08-2021 End: 12-08-[address] RICKY IBARRA . Facility:[facility] Start: 12-04-2021 End: 12-05-[address] ISHMAEL SIMON Facility:[facility] Start: 11-19-2021 End: 11-20-2021 ambulatory YOLA COLMENARES . Facility:[facility] Start: 11-03-2021 End: 11-03-[address] RICKY IBARRA . Facility:[facility] Start: 10-22-2021 End: 10-23-[address] RICKY IBARRA . Facility:[facility] Start: 10-13-2021 End: 10-13-[address] RICKY IBARRA . Facility:[facility] Start: 10-01-2021 End: 10-02-2021 ambulatory YOLA COLMENARES . Facility:[facility] Start: 10-01-2021 End: 10-02-2021 ambulatory YOLA COLMENARES . Facility:[facility] Start: 10-03-2020 End: 10-04-2020 ambulatory SIMONE RUIZ Facility:[facility] Start: 03-26-2020 End: 04-10-2020 ambulatory JEY ELISE Facility:[facility] Start: 03-14-2020 End: 03-15-2020 ambulatory JEY ELISE Facility:[facility] Procedures Date Procedure Procedure Detail Performing Clinician Start: 06-14-2024 ALL BASIC METABOLIC PANEL Generic External Data Provider Start: 06-14-2024 ALL LIPID PROFILE (FASTING) Generic External Data Provider Start: 06-14-2024 [facility] ALT Generic Ex ternal Data Provider Start: 06-14-2024 [facility] AST Generic Ex ternal Data Provider Start: 05-27-2024 Epithelial cells LM Ql (Urine [...] in persn dual ld pacer Naima Wright SPORTS INFORMATION DIRECTOR-RADIOGRAPHER CARDIAC CATHETERIZATION Work Phone: Start: 04-24-2024 MLR HEMOGLOBIN A1C [...] w/le ast 12 lds w/i&r Naima Wright SPORTS INFORMATION DIRECTOR-RADIOGRAPHER CARDIAC CATHETERIZATION Work Phone: Start: 11-09-2023 Program eval implant able in persn dual ld pacer Ana M Kumari SPORTS INFORMATION DIRECTOR-RADIOGRAPHER CARDIAC CATHETERIZATION Work Phone: Start: 09-26-2023 CARDIAC DEVICE CHECK - REMOTE NAIMA WRIGHT Start: 09-26-2023 CARDIAC DEVICE CHECK - REMOTE Amador Son MD Work Phone: Start: 08-10-2023 VASC US UPPER EXTREM ITY VENOUS DUPLEX LEFT NAIMA WRIGHT Start: 08-10-2023 Dup-scan xtr veins unilateral/limited study Naima Wright SPORTS INFORMATION DIRECTOR-RADIOGRAPHER CARDIAC CATHETERIZATION Work Phone: Start: 08-05-2023 Radiologic exam ches t single view Ana M Kumari SPORTS INFORMATION DIRECTOR-RADIOGRAPHER CARDIAC CATHETERIZATION Work Phone: Start: 08-05-2023 Ecg routine ecg w/le ast 12 lds trcg only w/o i&r Ana M Kumari APRN-RADIOGRAPHER CARDIAC CATHETERIZATION Work Phone: Start: 08-05-2023 Electrophysiology study Amador Son MD Work Phone: Start: 08-05-2023 Echo tthrc r-t 2d w/ wom-mode compl spec&colr d Ana M Angel SPORTS INFORMATION DIRECTOR-RADIOGRAPHER CARDIAC CATHETERIZATION Work Phone: Start: 08-05-2023 Ecg routine ecg w/le ast 12 lds trcg only w/o i&r Ana M Angel SPORTS INFORMATION DIRECTOR-RADIOGRAPHER CARDIAC CATHETERIZATION Work Phone: Start: 08-05-2023 Basic metabolic pane l calcium total Ana M Angel APRN-RADIOGRAPHER CARDIAC CATHETERIZATION Work Phone: Start: 07-22-2023 CASE REQUEST EP LAB MINDI RHAF KARSON Start: 07-22-2023 AMB REFERRAL TO [facility] ELECTROPHYSIOLOGY MOURSUE TY Start: 07-22-2023 ECG 12-LEAD MOURHAElaine TR ABOULSSI Start: 07-22-2023 Ecg routine ecg w/le ast 12 lds w/i&r Amador Son MD Work Phone: Start: 07-13-2023 HOLTER OR EVENT CARD IAC MONITOR VALENTINO TY Start: 07-13-2023 ECG 12-LEAD MOGONZALOF TR ABOULSSI Start: 05-07-[address] ISHMAEL CROUCH Comment on above: Performed By: #### V ITAD, PSASC #### [facility] [address] [address] [address] Britt Mendoza Start: 03-15-2020 ANESTH HIP ARTHROPLASTY SIMONE RUIZ Start: 03-15-2020 TOTAL HIP ARTHROPLASTY JEY ELISE Start: 03-14-2020 Antibody screen SIMONE JOSELYN MAYERUMANG Comment on above: Performed By: #### 6 [id number] ####[place] [id number] [address] Start: 08-24-2019 Colonoscopy Ishmael faith MD Work Phone: Colonoscopy Ishmael Simon Work Phone: Excision of cyst Ishmael hutchison Work Phone: Hernia repair Ishmael Siomn Work Phone: Operation on urinary system Ishmael Simon Work Phone: Surgical repair of u pper extremity Ishmael Simon Work Phone: Total replacement of hip Lillian Simon Work Phone: Plan of Treatment Date Care Activity Detail Author Start: 08-23-2029 Screening for malignant neoplasm of colon [facility] Start: 04-16-2026 Glaucoma screening Diabetes: Retinopathy Screening [facility] Start: 05-15-2025 End: 05-15-2025 Patient encounter procedure 05/15/2025 8:40 AM EST Office Visit [address] [place] [address] Valentino Ty MD [address] [facility] 2, [address] [place] [address] [facility] Start: 04-24-2025 Medicare Annual Wellness (AWV) Medicare Annual Wellness (AWV) [facility] Start: 12-06-2024 Adult BMI Screening Adult BMI Screening [facility] Start: 12-06-2024 Tobacco Screening Tobacco Screening [facility] Start: 11-28-2024 End: 11-28-2024 Patient encounter procedure [facility] Start: 11-21-2024 End: 11-21-2024 Patient encounter procedure 11/21/2024 8:00 AM EDT Appointment [facility] [address] [place] [address] [facility] Start: 08-04-2024 Creatinine measurement Creatinine Level [facility] Start: 08-04-2024 Echocardiography Echocardiogram [facility] Start: 08-04-2024 Potassium measurement Potassium Level [facility] Start: 07-23-2024 End: 07-23-2024 Patient encounter procedure 07/23/2024 10:15 AM EDT Office Visit [facility] [address] [place] [id number] Ishmael Simon MD [address] [place] [id number] [facility] Start: 06-13-2024 End: 06-13-2025 Alanine aminotransferase [Enzymatic activity/volume] in Serum or Plasma by With P-5'-P Alanine Aminotransferase Lab Routine Hyperlipidemia, unspecified hyperlipidemia type Expected: 06/13/2024 (Approximate), Expires: 06/13/2025 [facility] Service Area Work Phone: Comment on above: Expected: 06/13/2024 (Approximate), Expi res: 06/13/2025 Start: 06-13-2024 End: 06-13-2025 Aspartate aminotransferase [Enzymatic activity/volume] in Serum or Plasma by With P-5'-P Aspartate Aminotransferase Lab Routine Hyperlipidemia, unspecified hyperlipidemia type Expected: 06/13/2024 (Approximate), Expires: 06/13/2025 [facility] Work Phone: Comment on above: Expected: 06/13/2024 (Approximate), Expi res: 06/13/2025 Start: 06-13-2024 End: 06-13-2025 Basic metabolic 2000 panel - Serum or Plasma Basic Metabolic Panel Lab Routine Essential hypertension, benign Expected: 06/13/2024 (Approximate), Expires: 06/13/2025 [facility] Work Phone: Comment on above: Expected: 06/13/2024 (Approximate), Expi res: 06/13/2025 Start: 06-13-2024 End: 06-13-2025 Lipid 1996 panel - Serum or Plasma Lipid Panel Lab Routine Hyperlipidemia, unspecified hyperlipidemia type Expected: 06/13/2024 (Approximate), Expires: 06/13/2025 [facility] Work Phone: Comment on above: Expected: 06/13/2024 (Approximate), Expi res: 06/13/2025 Start: 06-13-2024 End: 06-13-2024 Patient encounter procedure 06/13/2024 9:10 AM EST Office Visit [address] [place] [phone] Valentino Ty MD 703 [facility] 2, [facility] [address] [place] [address] [facility] Start: 06-06-2024 End: 06-06-2024 Patient encounter procedure 06/06/2024 9:45 AM EST Office Visit [facility] [address] [place] [phone] Ishmael Simon MD [address] [place] [id number] Arrived [facility] Comment on above: Arrived Start: 06-04-2024 End: 06-04-2024 Patient encounter procedure 06/04/2024 9:30 AM EST Office Visit [facility] [address] [place] [address] Ishmael Simon MD [address] [place] [address] [facility] Start: 05-25-2024 Urine screening for protein Diabetes: Urine Protein Screening [facility] Start: 05-23-2024 End: 05-23-2024 Patient encounter procedure [facility] Start: 05-17-2024 Glaucoma screening Diabetes: [...] hyperglycemia, without long-term current use of insulin ([facility]) Expected: 04/24/2024 (Approximate), Expires: 04/24/2025 [facility] Work Phone: Comment on above: Expected: 04/24/2024 (Approximate), Expi res: 04/24/2025 Start: 04-24-2024 End: 04-24-2024 Patient encounter procedure [facility] Comment on above: Arrived Start: 04-10-2024 Hemoglobin A1c measurement Diabetes: Hemoglobin A1C [facility] Start: 2024 RSV High Risk: (Elderly (60+) or Population) (1 - Risk 60-74 years 1-dose series) RSV High Risk: (Elderly (60+) or Population) (1 - Risk 60-74 years 1-dose series) [facility] Start: 02-06-2024 End: 02-05-2025 Bacteria identified in Urine by Culture Urine culture (clean catch) Microbiology Routine Dysuria Expected: 02/06/2024 (Approximate), Expires: 02/05/2025 [facility] Work Phone: Comment on above: Expected: 02/06/2024 [...] Routine Dysuria Expected: 02/06/2024 (Approximate), Expires: 02/05/2025 [facility] Comment on above: Expected: 02/06/2024 (Approximate), Expi res: 02/05/2025 Start: 01-13-2024 End: 01-13-2024 Patient encounter procedure [facility] Comment on above: Arrived Start: 01-08-2024 COVID-19 Vaccine ( season) COVID-19 Vaccine ( season) [facility] Start: 01-08-2024 COVID-19 Vaccine ( season) COVID-19 Vaccine ( season) [facility] Start: 01-08-2024 Influenza vaccination [facility] Start: 12-23-2023 End: 12-23-2023 Patient encounter procedure 12/23/2023 10:00 AM EDT Appointment [facility] [address] [place] [address] Roc Ramsey, [address] [place] [address] [facility] Start: 12-14-2023 End: 12-13-2024 US.doppler Extremity arteries - bilateral for physiologic artery study Vas art doppler lwr bilat mult lev/PVR Vascular Ultrasound Routine Claudication ([facility]) Expected: 12/14/2023, Expires: 12/13/2024 [facility] Work Phone: Comment on above: Expected: 12/14/2023, Expires: Start: 12-07-2023 End: 12-06-2024 US.doppler Extremity arteries - bilateral for physiologic artery study Vas art doppler lwr bilat mult lev/PVR Vascular Ultrasound Routine Right leg pain Expected: 12/07/2023, Expires: 12/06/2024 [facility] Work Phone: Comment on above: Expected: 12/07/2023, Expires: Start: 11-21-2023 End: 11-21-2023 Patient encounter procedure 11/21/2023 8:50 AM EDT Office Visit [address] [place] [address] Valentino Ty MD 703 [facility] 2, [address] [place] [address] [facility] Start: 11-09-2023 End: 08-04-2024 Cardiac Device Check - In Clinic [facility] Service Area Work Phone: Comment on above: Expected: 11/09/2023 (Approximate), Expi res: 08/04/2024 Start: 11-09-2023 End: 08-04-2024 XR Chest 2 Views [facility] Work Phone: Comment on above: Expected: 11/09/2023, Expires: 5 Once for 1 Occurrenc es starting 11/09/2023 until 11/09/2023 Start: 11-09-2023 End: 11-09-2023 Patient encounter procedure [facility] Start: 11-03-2023 End: 11-03-2023 Patient encounter procedure 11/03/2023 8:50 AM EDT Office Visit [place] [address] [place] [address] Valentino Ty MD 703 [facility] 2, [address] [place] [address] [facility] Start: 08-12-2023 End: 08-12-2023 Clinical Support 08/12/2023 8:30 AM EDT Clinical Support [facility] [address] [place] [address] [facility] Start: 08-10-2023 Subsequent hospital visit by physician 08/10/2023 2:09 PM EDT Hospital Encounter [facility] [address] [place] [phone] Localized swelling on left hand; S/P placement of cardiac pacemaker [facility] Comment on above: Localized swelling on left hand; S/P placement of cardiac pacemaker Start: 07-22-2023 End: 07-21-2025 Heart Transthoracic Transthoracic Echo Complete Echocardiography Routine Sinus bradycardia Chronotropic incompetence Sick sinus syndrome (CMS/HCC) Other fatigue Preoperative cardiovascular examination Expected: 07/22/2023 (Approximate), Expires: 07/21/2025 [facility] Work Phone: Comment on above: Expected: 07/22/2023 (Approximate), Expi res: 07/21/2025 Start: 07-13-2023 FUV, Provider: Valentino Ty, Status: Pen, Time: 8:30 AM FUV, Provider: Valentino Ty, Status: Pen, Time: 8:30 AM [facility] DO Work Phone: Start: 01-07-2023 COVID-19 Vaccine ( season) COVID-19 Vaccine ( season) [facility] Start: 01-07-2023 Influenza vaccination Influenza Vaccine (#1) [facility] Start: 07-14-2022 FUV, Provider: Valentino Ty, Status: Pen, Time: 10:40 AM [facility]UV, Provider: Valentino Ty, Status: Pen, Time: 10:40 AM [facility] 600 DO Work Phone: Start: 02-15-2022 STRESS JUICE, Provider: CARLITO HHVI NUCLEAR 01,[id number], Status: Pen, Time: 2:00 PM STRESS JUICE, Provider: CARLITO [facility]VI NUCLEAR 01,[id number], Status: Pen, Time: 2:00 PM [facility] 600 DO Work Phone: Start: 02-21-2014 Administration of varicella zoster vaccine Zoster (Shingles) Vaccine (1 of 2) [facility] Start: 02-21-2014 Zoster Vaccines (1 of 2) Zoster Vaccines (1 of 2) [facility] Start: 02-21-1986 DTaP/Tdap/Td Vaccines (1 - Tdap) DTaP/Tdap/Td Vaccines (1 - Tdap) [facility] Start: 02-21-1983 DTaP,Tdap and Td Vaccines (1 - Tdap) DTaP,Tdap and Td Vaccines (1 - Tdap) [facility] Start: 02-21-1983 Hepatitis B Vaccines (1 of 3 - 19+ 3-dose series) Hepatitis B Vaccines (1 of 3 - 19+ 3-dose series) [facility] Start: 02-21-1983 Pneumococcal vaccination Pneumococcal Vaccine (1 of 2 - PCV) [facility] Start: 02-21-1983 Urine screening for protein Diabetes: Urine Protein Screening [facility] Start: 02-21-1982 Adult BMI Follow Up Plan Adult BMI Follow Up Plan [facility] Start: 02-21-1982 Diabetes mellitus screening Diabetes Screening [facility] Start: 02-21-1982 Diabetic foot examination Diabetic Foot Exam [facility] Start: 02-21-1982 Hepatitis C screening Hepatitis C Screening [facility] Start: 1976 Depression Screening Depression Screening [facility] Start: 02-21-1974 Diabetic foot examination Diabetes: Foot Exam [facility] Start: 02-21-1974 Glaucoma screening Diabetes: Retinopathy Screening [facility] Start: 02-21-1970 Pneumococcal Vaccine: Pediatrics (0 to 5 Years) and At-Risk Patients (6 to 64 Years) (1 - PCV) Pneumococcal Vaccine: Pediatrics (0 to 5 Years) and At-Risk Patients (6 to 64 Years) (1 - PCV) [facility] Start: 02-21-1970 Pneumococcal Vaccine: Pediatrics (0 to 5 Years) and At-Risk Patients (6 to 64 Years) (1 of 2 - PCV) Pneumococcal Vaccine: Pediatrics (0 to 5 Years) and At-Risk Patients (6 to 64 Years) (1 of 2 - PCV) [facility] Start: 02-21-1965 MMR Vaccines (1 of 1 - Standard series) MMR Vaccines (1 of 1 - Standard series) [facility] Start: 1964 COVID-19 Vaccine (#1) COVID-19 Vaccine (#1) [facility] Start: 1964 Annual wellness visit Welcome to Medicare Visit [facility] Start: 1964 Creatinine measurement Creatinine Level [facility] Start: 1964 Echocardiography Echocardiogram [facility] Start: 1964 Glaucoma screening Diabetic Ophthalmology Exam [facility] Start: 1964 Hemoglobin A1c measurement Diabetes: Hemoglobin A1C [facility] Start: 1964 Hepatitis B Vaccines (1 of 3 - 3-dose series) Hepatitis B Vaccines (1 of 3 - 3-dose series) [facility] Start: 1964 HIV screening HIV Screening [facility] Start: 1964 Lipid panel Lipid Panel [facility] Start: 1964 Medicare Annual Wellness (AWV) Medicare Annual Wellness (AWV) [facility] Start: 1964 Medicare Annual Wellness Visit Medicare Annual Wellness Visit (AWV) [facility] Start: 1964 Potassium measurement Potassium Level [facility] Start: 1964 Screening for malignant neoplasm of colon [facility] Start: 1964 Tobacco Counseling Tobacco Counseling [facility] Start: 1964 Urine screening for protein Diabetes: Urine Protein Screening [facility] End: 07-21-2024 Basic metabolic 2000 panel - Serum or Plasma Basic Metabolic Panel Lab Routine Sinus bradycardia Chronotropic incompetence Sick sinus syndrome (CMS/HCC) Other fatigue 1 Occurrences starting 07/22/2023 until 07/21/2024 [facility] Work Phone: Comment on above: 1 Occurrences starting 07/22/2023 until 07/21/2024 End: 11-20-2025 Cardiac Device Check - In Clinic Cardiac Device Check - In Clinic Implantable Cardiac Device Routine Cardiac pacemaker in situ 1 Occurrences starting 05/23/2024 until 11/20/2025 [facility] Work Phone: Comment on above: 1 Occurrences starting 05/23/2024 until 11/20/2025 End: 01-25-2024 Cardiac Device Check - Remote [facility] Work Phone: Comment on above: Once for 1 Occurrences starting 01/25/20 24 until 01/25/2024 End: 11-20-2024 Cardiac Device Check - Remote Cardiac Device Check - Remote Implantable Cardiac Device Routine Cardiac pacemaker in situ 52 Occurrences starting 05/23/2024 until 11/20/2024 [facility] Work Phone: Comment on above: 52 Occurrences starting 05/23/2024 until 11/20/2024 End: 07-21-2024 CBC panel - Blood by Automated count CBC Lab Routine Sinus bradycardia Chronotropic incompetence Sick sinus syndrome (CMS/HCC) Other fatigue 1 Occurrences starting 07/22/2023 until 07/21/2024 [facility] Work Phone: Comment on above: 1 Occurrences starting 07/22/2023 until 07/21/2024 ECG 12 lead (Clinic Performed) ECG 12 lead (Clinic Performed) ECG Routine Sinus bradycardia 11/09/2023 10:38 AM EDT [facility] Work Phone: ECG 12 lead STAT ECG 12 lead STA T ECG STAT 08/05/2023 12:30 PM EDT [facility] Service Area Work Phone: ECG 12 lead STAT ECG 12 lead STA T ECG STAT 08/05/2023 5:12 PM EDT [facility] Work Phone: LOWER RESPIRATORY CULTURE LOWER RESPIRATORY CULTURE Lab Routine 05/27/2024 6:00 PM EST [facility] PPM IMPLANT DC PPM IMPLANT DC S inus bradycardia Chronotropic incompetence Sick sinus syndrome (CMS/HCC) Other fatigue [facility] Work Phone: End: 07-21-2024 Prothrombin time (PT) Protime-INR Lab Routine Sinus bradycardia Chronotropic incompetence Sick sinus syndrome (CMS/HCC) Other fatigue 1 Occurrences starting 07/22/2023 until 07/21/2024 [facility] Service Area Work Phone: Comment on above: 1 Occurrences starting 07/22/2023 until 07/21/2024 Payers Date Payer Category Payer Self-pay 2023 Medicare [id number] 2023 Medicare (Managed Care) 1.2. [id number] 2023 Private Health Insurance [id number] 2023 Private Health Insurance 1964 Unknown [id number] 2.16.840.1.420487.3.579.2.647 1964 Unknown [id number] 2.16.840.1.015888.3.579.2.647 1964 Unknown [id number] 2.16.840.1.680638.3.579.2.647 1964 Unknown [id number] 2.16.840.1.594488.3.579.2.1068 1964 Unknown [id number] 2.16.840.1.514229.3.579.2.356 1964 Unknown [id number] 2.16.840.1.712817.3.579.2.356 1964 Unknown [id number] 2.16.840.1.394021.3.579.2.593 1964 Unknown [id number] 2.16.840.1.729495.3.579.2.593 1964 Unknown [id number] 2.16.840.1.005881.3.579.2.593 1964 Unknown [id number] 2.16.840.1.743084.3.579.2.593 1964 Unknown [id number] 2.16.840.1.468947.3.579.2.593 1964 Unknown [id number] 2.16.840.1.143125.3.579.2.593 1964 Unknown [id number] 2.16.840.1.899606.3.579.2.593 1964 Unknown [id number] 2.16.840.1.489581.3.579.2.593 1964 Unknown [id number] 2.16.840.1.628575.3.579.2.593 1964 Unknown [id number] 2.16.840.1.493596.3.579.2.593 1964 Unknown [id number] 2.16.840.1.416230.3.579.2.593 1964 Unknown [id number] 2.16.840.1.240504.3.579.2.593 1964 Unknown [id number] 2.16.840.1.967693.3.579.2.593 1964 Unknown [id number] 2.16.840.1.102620.3.579.2.593 1964 Unknown [id number] 2.16.840.1.061522.3.579.2.593 1964 Unknown [id number] 2.16.840.1.747261.3.579.2.593 1964 Unknown [id number] 2.16.840.1.541290.3.579.2.593 1964 Unknown [id number] 2.16.840.1.619476.3.579.2.593 1964 Unknown [id number] 2.16.840.1.488102.3.579.2.593 1964 Unknown [id number] 2.16.840.1.226477.3.579.2.593 1964 Unknown [id number] 2.16.840.1.512157.3.579.2.593 1964 Unknown [id number] 2.840.1.987392.3.579.2.593 1964 Unknown [id number] 2.16.840.1.827326.3.579.2.593 1964 Unknown [id number] 2.16.840.1.672447.3.579.2.593 1964 Unknown [id number] 2.16.840.1.606572.3.579.2.196 1964 Unknown [id number] 2.16.840.1.522219.3.579.2.1246 1964 Unknown [id number] 2.16.840.1.922641.3.579.2.1246 1964 Unknown [id number] 2.16.840.1.678963.3.579.2.1246 1964 Unknown [id number] 2.16.840.1.236572.3.579.2.1246 1964 Unknown [id number] 2.16.840.1.902986.3.579.2.1246 1964 Unknown [id number] 2.16.840.1.945600.3.579.2.1246 1964 Unknown [id number] 2.16.840.1.241213.3.579.2.1246 1964 Unknown [id number] 2.16.840.1.868310.3.579.2.1259 1964 Unknown [id number] 2.16.840.1.103306.3.579.2.1259 1964 Unknown [id number] 2.16.840.1.133343.3.579.2.1259 1964 Unknown [id number] 2.16.840.1.904389.3.579.2.9 1964 Unknown [id number] 2.16.840.1.104053.3.579.2.1259 1964 Unknown [id number] 2.16.840.1.458287.3.579.2.1243 1964 Unknown [id number] 2.16.840.1.024544.3.579.2.1243 1964 Unknown [id number] 2.16.840.1.563143.3.579.2.1243 1964 Unknown [id number] 2.16.840.1.460838.3.579.2.4 1964 Unknown [id number] 2.16.840.1.918140.3.579.2.1243 1964 Unknown [id number] 2.16.840.1.008190.3.579.2.1243 1964 Unknown [id number] 2.16.840.1.378367.3.579.2.1243 1964 Unknown [id number] 2.16.840.1.679443.3.579.2.1243 1964 Unknown [id number] 2.16.840.1.397832.3.579.2.124 1959 Medicaid [id number] 1960 Medicare [id number] Unknown [id number] Unknown Unknown [employer] [id number] Unknown [id number] 2.16.840.1.263952.3.579.2.531 Unknown [id number] 2.16.840.1.173837.3.579.2.531 Social History Date Type Detail Facility Start: 07-13-2023 End: 10-09-2023 No alcohol use No alcohol use [facility] Comment on above: 1 pack daily; Start: 04-13-2023 End: 07-13-2023 Tobacco smoking status NHIS Smokes tobacco daily [facility] Start: 05-09-2024 History of tobacco use Cigarette Smo ker [facility] Work Phone: Start: 04-13-2023 End: 07-13-2023 Tobacco use and exposure Smokeless tobacco non-user [facility] Work Phone: Start: 07-22-2023 End: 06-06-2024 Alcohol intake Lifetime non-drinker (finding) [facility] Work Phone: Start: 07-13-2023 End: 10-09-2023 Tobacco use panel [facility] Start: 1965 [facility]igned [facility] Work [facility]: Start: 07-12-2023 End: 06-13-2024 Exposure to SARS-CoV-2 (event) Not sure [facility] Frequency of Social Gatherings with Friends and Family Not on file [facility] Do you belong to any clubs or organizations such as anabaptism groups, unions, fraternal or athletic groups, or [...] [facility] Start: 05-09-2024 Tobacco smoking stat [facility] Smoker (finding) [facility] Start: 03-17-2024 End: 03-28-2024 Sex Male (finding) [facility] Start: 1965 Sex Assigned At Male F [facility] Start: 06-13-2024 Tobacco smoking stat 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 male Chief Complaint [...] once daily at bedtime., Disp: , Rfl: qrpdkxcezll-wozuosfjb-lfbviubx (TRELEGY-ELLIPTA) 100-62.5-25 mcg blister with device, Inhale [...] Scribe Attestation By signing my name below, I, Yola Poole LPN, Scribe attest that this documentation has [...] discussion and plan. documented in this encounter [facility] Work Phone: 06-13-2024 Instructions Yola Morrow [...] up per routine documented in this encounter [facility] Work Phone: 06-06-2024 History of Present [...] 90 mcg/act inhaler documented in this encounter [facility] 05-29-2024 Note Gram Stain Evaluation This specimen is of good quality and is acceptable for routine [facility] 05-29-2024 Note [facility] GRAM STAIN EVALUATION bacterial culture. [facility] 05-23-2024 History of Present illness Narrative [...] A DAY cetirizine (ZYRTEC) 10 mg, Nightly oahdoupviji-trrjzpcau-sphfarzd (TRELEGY-ELLIPTA) 100-62.5-25 mcg blister with device 1 [...] bradycardia status post dual-chamber pacemaker implant (Medtronic Trinway XT DR MRI) on August 05, 2023. [...] prepare this document. documented in this encounter [facility] Work Phone: 05-23-2024 Instructions Jazz Flynn [...] AND IN THE PRESENCE OF DR. AMADOR SNO MD documented in this encounter [facility] Work Phone: 04-24-2024 History of Present illness Narrative Associated Problem(s): Class 2 severe obesity due to excess calories with serious comorbidity and body mass index (BMI) of 37.0 to 37.9 in adult ([facility]) Weight up 28 pounds in past year. Add ozempic. Associated Problem(s): Essential hypertension, benign ([facility]) BP controlled and monitor PRN. Associated Problem(s): Type 2 diabetes mellitus with hyperglycemia, without long-term current use of insulin ([facility]) Not checking BS and due for A1C. [...] Items Addressed This Visit Essential hypertension, benign ([facility]) BP controlled and monitor PRN. Type 2 diabetes mellitus with hyperglycemia, without long-term current use of insulin ([facility]) Not checking BS and due for A1C. Add ozempic. Relevant Medications semaglutide (Ozempic, 0.25 or 0.5 MG/DOSE,) 2 MG/1.5ML solution pen-injector Other Relevant Orders Hemoglobin A1c Class 2 severe obesity due to excess calories with serious comorbidity and body mass index (BMI) of 37.0 to 37.9 in adult ([facility]) Weight up 28 pounds in past year. [...] hyperglycemia, without long-term current use of insulin (CMS/[facility]) Not checking BS and A1C 5.8. Stick to ADA diet and limit carbs. Associated Problem(s): Primary osteoarthritis of right hip Pain stable and use percocet PRN. Continue home PT exercises. Associated Problem(s): Essential hypertension, benign ([facility]/HCC) BP controlled and monitor PRN. Associated Problem(s): DDD (degenerative disc disease), lumbar Pain worse and follow with pain management for ablation. Associated Problem(s): Chronic obstructive pulmonary disease ([facility]/HCC) Symptoms worse and treat with prednisone. Continue [...] Assessment/Plan documented in this encounter [facility] 12-26-2023 Miscellaneous Notes ----- Message from Dr. Roc Ramsey DO sent at 12/24/2023 1:02 PM EDT ----- Please let patient know that everything looks fine with the major vessels but if he is having any right foot pain I would need to refer him to vascular surgery. Let me know. Thanks, Dr. Galindo Spoke with patient regarding vascular study results. Patient verbally understood with no further questions. Asked patient if he was having any right foot pain. Patient stated he is having a little right foot pain and sometimes it goes numb. Informed patient that Dr. Ramsey would refer him to vascular surgery but patient declined at this time stating he think's it is okay right now. Will inform Dr. Ramsey of patient's decision. Informed patient to call the office for a vascular surgery referral if pain get's worse. documented in this encounter [facility] 12-26-2023 Telephone encounter Note ----- Message from Dr. Roc Ramsey DO sent at 12/24/2023 1:02 PM EDT ----- Please let patient know that everything looks fine with the major vessels but if he is having any right foot pain I would need to refer him to vascular surgery. Let me know. ThanksDr. Galindo [facility] 12-26-2023 Telephone encounter Note Spoke with patient regarding vascular study results. Patient verbally understood with no further questions. Asked patient if he was having any right foot pain. Patient stated he is having a little right foot pain and sometimes it goes numb. Informed patient that Dr. Ramsey would refer him to vascular surgery but patient declined at this time stating he think's it is okay right now. Will inform Dr. Ramsey of patient's decision. Informed patient to call the office for a vascular surgery referral if pain get's worse. [facility] 12-07-2023 History of Present illness Narrative Formatting of this note is different fro m the original. Images from the original note were not included. [facility] [id number] [facility] [id number] progress NOTE CHIEF COMPLAINT Chief Complaint Patient presents with Follow-up RECHECK INGUINAL HERNIA, RIGHT Liliana Michaels Jr. is a 58 y.o. male who presents along with his with complaints of pain in his right groin and right anterior thigh. He used to receive radiofrequency ablation from the [facility] pain management but the last 1 has been almost a year ago. He smokes regularly and has been coughing more than usual. He is concerned that he might have recurrent right inguinal hernia. He denies any lumps in the groin. I repaired on a hernia on him June of 2021 with a de Sandi robot. He states his right thigh is swollen at times and he has pain with movement when he turns just right. He denies any lumps in the left groin. He continues to smoke against medical advice. He is on Neurontin for pain. He has not seen his PCP. MEDICATION Current Outpatient Medications: baclofen (LIORESAL) 10 mg tablet, Take 1 tablet (10 mg total) by mouth 3 (three) times a day., Disp: , Rfl: cetirizine (ZyrTEC) 10 mg tablet, Take 1 tablet (10 mg total) by mouth in the morning., Disp: , Rfl: furosemide (LASIX) 40 mg tablet, Take 1 tablet (40 mg total) by mouth 2 (two) times a day., Disp: , Rfl: gabapentin (NEURONTIN) 300 mg capsule, Take 1 capsule (300 mg total) by mouth nightly., Disp: , Rfl: ibuprofen (ADVIL,MOTRIN) 200 mg tablet, Take 1 tablet (200 mg total) by mouth every 6 (six) hours as needed for pain., Disp: , Rfl: montelukast (SINGULAIR) 10 mg tablet, , Disp: , Rfl: nabumetone (RELAFEN) 500 mg tablet, , Disp: , Rfl: omeprazole (PriLOSEC) 40 mg capsule, Take by mouth daily., Disp: , Rfl: oxyCODONE-acetaminophen (PERCOCET) 7.5-325 mg per tablet, , Disp: , Rfl: spironolactone (ALDACTONE) 50 mg tablet, Take 1 tablet (50 mg total) by mouth in the morning., Disp: , Rfl: TRELEGY ELLIPTA 100-62.5-25 mcg blister with device, , Disp: , Rfl: DUPIXENT PEN 300 mg/2 mL pen injector SUBQ injection pen, Inject under the skin. 1 Injection every 2 weeks. (Patient not taking: Reported on 12/07/2023), Disp: , Rfl: ALLERGY No Known Allergies MEDICAL HISTORY Past Medical History: Diagnosis Date Acute renal failure (ARF) ([facility] unknown origin Arrhythmia Bradycardia Bilateral carpal tunnel syndrome BPH with urinary obstruction Bradycardia Chronic hypoxemic respiratory failure ([facility]) Cigarette nicotine dependence COPD (chronic obstructive pulmonary disease) ([facility]) Degenerative disc disease, lumbar Dental disease Diabetes mellitus ([facility]) ED (erectile dysfunction) Hypertension Insomnia 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 Morbid obesity ([facility]) Nasal polyps Obesity TAHIR (obstructive sleep apnea) PVD (peripheral vascular disease) ([facility]) Requires continuous at home supplemental oxygen 2 L NC at HS Right inguinal hernia Skin lesion Tobacco abuse Visual impairment glasses Vitamin D deficiency SURGICAL HISTORY Past Surgical History: Procedure Laterality Date CARDIAC PACEMAKER PLACEMENT 08/05/2023 COLONOSCOPY N/A 08/24/2019 Performed by Germán Dukes MD at [facility] CYST REMOVAL from neck DAVINCI REPAIR HERNIA INGUINAL Right 06/30/2021 Performed by Roc Ramsey DO at [facility] EL[facility]OW SURGERY right JOINT REPLACEMENT right FOREIGN SOCIAL HISTORY Social History Socioeconomic History Marital status: Single Spouse name: Not on file Number of children: Not on file Years of education: Not on file Highest education level: Not on file Occupational History Not on file Tobacco Use Smoking status: Every Day Current packs/day: 1.00 Average packs/day: 1 pack/day for 43.0 years (43.0 ttl pk-yrs) Types: Cigarettes Smokeless tobacco: Never Vaping Use Vaping status: Never Used Substance and Sexual Activity Alcohol use: Never Drug use: Yes Types: Marijuana Comment: OCCASIONAL Sexual activity: Yes Partners: Female Other Topics Concern Not on file Social History Narrative Not on file Social Determinants of Health Financial Resource Strain: Low Risk (10/09/2023) Received from [facility] Overall Financial Resource Strain (CARDIA) Difficulty of Paying Living Expenses: Not hard at all Food Insecurity: No Food Insecurity (12/07/2023) Hunger Screening Food Insecurity - Worry: Never True Food Insecurity - Inability: Never True Transportation Needs: No Transportation Needs (10/09/2023) Received from [facility] PRAPARE - Transportation Lack of Transportation (Medical): No Lack of Transportation (Non-Medical): No Physical Activity: Insufficiently Active (10/09/2023) Received from [facility] Exercise Vital Sign Days of Exercise per Week: 2 days Minutes of Exercise per Session: 10 min Stress: No Stress Concern Present (10/09/2023) Received from [facility] [place] [facility] [employer] [facility] - Occupational Stress Questionnaire Feeling of Stress : Not at all Social Connections: Unknown (10/09/2023) Received from [facility] Social Connection and Isolation Panel [NHANES] Frequency of Communication with Friends and Family: More than three times a week Frequency of Social Gatherings with Friends and Family: Not on file Attends Buddhist Services: Patient declined Active Member of Clubs or Organizations: No Attends Club or Organization Meetings: Patient declined Marital Status: Living with partner Interpersonal Safety: Not on file Housing Instability: Low Risk (10/09/2023) Received from [facility] Housing Stability Vital Sign Unable to Pay for Housing in the Last Year: No Number of Places Lived in the Last Year: 1 Unstable Housing in the Last Year: No FAMILY HISTORY Family History Problem Relation Age of Onset Lung cancer Mother Brain Tumor Mother Schizophrenia Mother Cancer Sister Brain cancer Maternal Aunt REVIEW OF SYSTEMS: Constitutional: Denies fevers, denies recent illnesses. Eyes: Denies any vision changes. ENT: Denies any throat pain. Neck: Denies any neck pain. Cardiovascular denies chest pain. Denies palpitations. Respiratory: Denies shortness of breath, positive cough, positive COPD Gastrointestinal: Negative for abdominal pain, nausea, melena, hematochezia, weight loss, change in bowel habits or weight loss or emesis. Genitourinary negative for dysuria hematuria urinary frequency or urgency. Musculoskeletal: Pain in the right thigh area; Negative for extremity pains or joint discomfort. Neurologic: No change in sensation or paresthesias or history of seizure disorder skin: No rashes. Hematologic: No anemia. No purpura. No petechiae and no prolonged or excessive bleeding Allergic and immunologic: No pruritus. No swelling. Endocrine: No unexplained weight loss. No polydipsia. No polyuria. No polyphagia. PHYSICAL EXAM Constitutional: He is oriented to person, place, and time. Vital signs are normal. He appears well-developed and well-nourished. HEENT: Head: Normocephalic and atraumatic. Eyes: Conjunctivae, EOM and lids are normal. Neck: Trachea normal. Neck supple. No thyroid mass present. Cardiovascular: Normal rate and regular rhythm. Pulmonary/Chest: Effort normal and breath sounds normal. Abdominal: Soft. Obese with no evidence of recurrent right inguinal hernia but he does have a small left inguinal hernia which he was unaware of and he is completely asymptomatic and it is reducible.. Musculoskeletal: Normal range of motion. Lymphadenopathy: He has no cervical adenopathy. He has no axillary adenopathy. Right: No inguinal and no supraclavicular adenopathy present. Left: No inguinal and no supraclavicular adenopathy present. Neurological: He is alert and oriented to person, place, and time. Skin: Skin is warm, dry and intact. Psychiatric: He has a normal mood and affect. His speech is normal and behavior is normal. Cognition and memory are normal. IMPRESSION 1. Left inguinal hernia reducible 2. Claudication right lower extremity rule out peripheral vascular disease 3. Tobacco abuse 4. Class 3 obesity 5. Diabetes mellitus and neuropathy by history 6. Umbilical hernia asymptomatic ASSESSMENT & PLAN 1. Tobacco cessation discussed with patient 2. Recommend peripheral vascular resistance ankle arm indices to rule out peripheral vascular disease due to smoking history; if this is negative then would refer back to pain management at the [facility] 3. Left inguinal hernia asymptomatic will observe 4. Umbilical hernia asymptomatic will observe 5. Weight loss recommended He and his significant other understood all the above. Evaluation included: Preparing to see the patient (e.g., review of tests) Obtaining and/or reviewing separately obtained history Performing a medically appropriate examination and/or evaluation Counseling and educating the patient/family/caregiver Referring and communicating with other health skin care therapist No primary diagnosis found. Roc Ramsey DO This note was created with the assistance of a speech recognition program. While intending to generate a timely document that accurately reflects the content of the visit, no guarantee can be provided that every grammatical or spelling mistake has been or will be identified or corrected. Thank you for your understanding. documented in this encounter [facility] 12-07-2023 Instructions Roc Ramsey DO - 12/07/2023 10:00 AM EDT Are You Ready To Kick The Habit? Free Tobacco Cessation Resources [facility] Services [facility] Centers provide all employees with free tobacco cessation services that include: Counseling to understand nicotine addiction Education about medications that can help you successfully quit Assistance with developing a plan to quit Call to set up an individual appointment or find out when group classes will be held: [facility]: [phone] [facility]: [phone] [facility]: [phone] [facility]: [phone] Quit Smoking Action Plan and Resources [facility] offers an eight-week, online smoking cessation plan to all [facility] employees, regardless of whether [place] is your medical insurance provider. Go to www.PNMsoftca.org/employeewellness and click the Health Risk Assessment and Resources link to get started. In the Bilqh6Hfiqtz menu, click Action Plans instead of Health Risk Assessment to access the Quit Smoking Action Plan. Additional smoking cessation resources are also available to all [facility] employees on the Ygftj5Choege web page at www.BroadHop.[employer]/quitsmoking. [place] Tobacco Cessation Program If [place] is your medical insurance provider, there are more free resources available to you, including: No copays or deductibles on local tobacco cessation counseling services to help you quit Prescription assistance for tobacco cessation medications to help you quit For details about the tobacco cessation program available to [place] members, go to www.BroadHop.[employer]il [employer] (Search: Tobacco Cessation Program). [place] Tobacco Quit Line 2-011-JEWC-NOW ( ) is a toll-free, telephonic service that helps [place] residents quit smoking and using tobacco. It is staffed by experts who tailor a quit plan for you and provide you with advice. [place] Tobacco Quit Line 0-311-DEIM-NOW ( ) is a toll-free, telephonic service that helps [place] residents quit smoking and using tobacco. It is staffed by experts who tailor a quit plan for you and provide you with advice. Two weeks of nicotine replacement therapy may be provided at no charge, if needed. Additional Resources These national organizations also offer free information and resources to help you quit tobacco: [place] [employer]--www.cancer.org/healthy/stayawayf romtobacco [place] [employer]--www.heart.org (Search: Quit Smoking) Centers for Disease Control and Prevention--www.cdc.gov/tobacco [place] [employer]--www.lungusa.org documented [facility] this encounter [facility] [employer] [facility] [facility] 11-09-2023 History of Present illness Narrative [...] DAY cetirizine (ZYRTEC) 10 mg, oral, Nightly wczaausdyix-fwjgifqcl-aopdyzor (TRELEGY-ELLIPTA) 100-62.5-25 mcg blister with device 1 [...] 68 bpm, prolonged AV conduction with a NC interval of 220 ms, QRS durations 100 [...] sinus bradycardia status post dual-chamber pacemaker implant ([employer] Kae XT DR MRI) on August 05, [...] of the device at the airport or [facility]. Do not carry cell phone in the [...] prepare this document. 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 No symptoms [...] Diagnosis Date Arrhythmia CHF (congestive heart failure) ([facility]) COPD (chronic obstructive pulmonary disease) ([facility]) Hypertension Social History Social History Tobacco Use [...] breakfast cetirizine (ZYRTEC) 10 mg, oral, Nightly rrpwwwlfpec-comfssewi-lokvhoun (TRELEGY-ELLIPTA) 100-62.5-25 mcg blister with device 1 [...] prepare this document. documented in this encounter [facility] Work Phone: 08-10-2023 Instructions Vero Mccarthy [...] Amador Son MD documented in this encounter [facility] Work Phone: 08-05-2023 Nurse Note Patient discharge instructions reviewed with patient and , verbalized understanding. Lt chest dressing remains dry/intact, no hematoma, no ecchymosis. Patient able to teachback site care instructions, follow up appointments. IV x2 removed and patient discharged to home via w/c. [facility] 08-05-2023 Nurse Note Patient discharge instructions [...] and ice pack over site. Sterling from [employer] in room speaking to Pt and SO educating on home device monitor. Pt returned to room after echocardiogram. Denies needs at this time. documented in this encounter [facility] Work Phone: 08-05-2023 Nurse Note Patient sitting up in chair, denies any complaints of incisional pain. Lt upper chest incision remains dry/intact. Will begin discharge instructions. [facility] Work Phone: 08-05-2023 Nurse Note Patient ambulated to BR, gait steady. Pacer rep has already met with patient and . Lt upper chest dressing remains dry/intact. Lt arm in immobilizer and ice pack over site. [facility] Work Phone: 08-05-2023 Note Formatting of this n ote might be different from the original. Post EKG and CXR performed at bedside. Pt denies needs at this time. Left chest remains soft and stable with no hematoma or oozing. [facility] Work Phone: 08-05-2023 Miscellaneous Notes Post [...] discussed with patient. documented in this encounter [facility] Work Phone: 08-05-2023 Hospital Discharge instructions Ana M Kumari, SPORTS INFORMATION DIRECTOR-RADIOGRAPHER CARDIAC CATHETERIZATION - 08/05/2023 5:00 PM EDT Images from [...] your arm above shoulder level. Do not pick remover items that weigh greater than 10 lbs [...] have been instructed by the device company printing supplies sales representative regarding remote home monitoring. There [...] sent through Care Everywhere.Pacemaker Insertion Discharge Instructions ([place])documented in this encounter [facility] Work Phone: 08-05-2023 Note Formatting of [...] Pt denies further needs at this time. [facility] Work Phone: 08-05-2023 Note Table formatting [...] of infection. The patient should call the director hospice operations immediately if symptoms recur, or for any problems. The patient has been instructed accordingly. 2. Follow up with [facility] office in seven days for [...] model number W1 DR 017 number [id number]. Right atrial lead [employer] 5076/45 serial number PJN 8 mm 101V. Imp (more content not included)... [employer]NGO_SECTRA_CARDIOLAB _XPER 08-05-2023 Note Formatting of this n ote might be different from the original. Sedation Plan ASA 2 Mallampati class: II. Risks, benefits, and alternatives discussed with patient. 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 No symptoms [...] breakfast cetirizine (ZYRTEC) 10 mg, oral, Nightly grslkvzlnlk-oxapzkoua-yegrwuco (TRELEGY-ELLIPTA) 100-62.5-25 mcg blister with device 1 [...] software was utilized to prepare this document. 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 No symptoms [...] breakfast cetirizine (ZYRTEC) 10 mg, oral, Nightly nxoahpmskjy-tksnmjnyw-tdadcfdv (TRELEGY-ELLIPTA) 100-62.5-25 mcg blister with device 1 [...] prepare this document. documented in this encounter [facility] Work Phone: 08-05-2023 Nurse Note Sterling from [employer] in room speaking to Pt and SO educating on home device monitor. [facility] 08-05-2023 Nurse Note Pt returned to room after echocardiogram. Denies needs at this time. 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 No symptoms [...] breakfast cetirizine (ZYRTEC) 10 mg, oral, Nightly tebmxdrqddx-iscyaqalp-taukqtit (TRELEGY-ELLIPTA) 100-62.5-25 mcg blister with device 1 [...] prepare this document. documented in this encounter [facility] Work Phone: 07-22-2023 Instructions Jazz Flynn [...] AMADOR SON MD documented in this encounter [facility] Work Phone: 07-20-2022 Note CONSULTATION PROCEDURE [...] medial portion of his leg. [facility] 05-07-2022 Note CONSULTATION CONSULTATION DATE: [...] months' time unless otherwise indicated. [facility] 01-14-2022 Note CONSULTATION CONSULTATION DATE: [...] it was recommended that he see a coating and baking operator, which he did do. He did a Holter monitor study and is following up with his coating and baking operator on 01/28/2022. Current medications include gabapentin 300 [...] with the plan of care. [facility] 11-19-2021 Note CONSULTATION CONSULTATION DATE: [...] to S1. Activities such as standing, walking, early childhood aide classroom and evening hours, stairs, bending and physical [...] [facility] Signed and Approved by: YOLA COLMENARES . 11/27/2021 14:13:00 [facility] 10-22-2021 [...] [facility] Signed and Approved by: YOLA COLMENARES . 11/04/2021 16:23:00 [facility] 10-01-2021 [...] shape. He has seen Dr. Nunn in [place] in the past regarding his back, and [...] of care. [facility] Signed and Approved by: YOLA COLMENARES . 10/08/2021 16:01:00 [facility] 08-31-2020 [...] Locations R1: This test was performed at: [facility], [address] [place] [address], [facility] , , [facility] Comment on above: Performed By: #### [id number] ####[place] [address] 08-31-2020 Note Microbiology PROCEDURE: Blood Culture Charcoal [...] Locations R1: This test was performed at: [facility], [address] [place] [address], [id number] , , [facility] Comment on above: Performed By: #### [id number] ####[facility] [id number] [place] [address] Evaluation note Diagnosis 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 Sinus bradycardia Other specified cardiac dysrhythmias Establishing care with new doctor, encounter for BMI 34.0-34.9,adult Sick sinus syndrome (CMS/HCC) Sinoatrial node dysfunction Simple chronic bronchitis (CMS/HCC) Simple chronic bronchitis Current smoker Other fatigue Preoperative cardiovascular examination Pre-operative cardiovascular examination documented in this encounter [facility] Work Phone: Evaluation note* Diagnosis Other [...] dysfunction Other fatigue documented in this encounter [facility] Work Phone: Evaluation note* Diagnosis Localized swelling on left hand S/P placement of cardiac pacemaker 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 Abnormal stress test Other nonspecific abnormal cardiovascular system function study Sinus bradycardia Other specified cardiac dysrhythmias Sick sinus syndrome (CMS/HCC) Sinoatrial node dysfunction Essential hypertension, benign BMI 34.0-34.9,adult Current smoker documented in this encounter [facility] Work Phone: Evaluation note* Diagnosis Localized swelling on left hand S/P placement of cardiac pacemaker documented in this encounter [facility] Work Phone: Evaluation note* Diagnosis Cardiac pacemaker in situ Sinoatrial node dysfunction (Multi) Sinoatrial node dysfunction documented in this encounter [facility] Work Phone: Evaluation note* Diagnosis Cardiac pacemaker in situ Sinoatrial node dysfunction (Multi) Sinoatrial node dysfunction documented in this encounter [facility] Work Phone: Evaluation note* Diagnosis Type [...] lumbosacral intervertebral disc documented in this encounter [facility] HealthcareEvaluation noteNo assessment information [facility] Work Phone: Evaluation note* Diagnosis MRI [...] (pediatric) Current smoker documented in this encounter [facility] Work Phone: Evaluation note* Diagnosis Pacemaker Cardiac pacemaker in situ documented in this encounter [facility] Work Phone: Evaluation note* Diagnosis Type [...] (BMI) of 37.0 to 37.9 in adult ([facility]) documented in this encounter [facility] HealthcareEvaluation [facility]* Diagnosis Cardiac pacemaker in situ Sinoatrial node dysfunction (Multi) Sinoatrial node dysfunction documented in this encounter [facility] Work Phone: Evaluation note* Diagnosis Degeneration of lumbar intervertebral disc Degeneration of lumbar or lumbosacral intervertebral disc documented in [facility] encounter [facility]* Diagnosis Type 2 diabetes mellitus [...] intervertebral disc documented in this encounter [facility]* Diagnosis Other intervertebral disc degeneration, lumbar region Degeneration of lumbar or lumbosacral intervertebral disc documented [facility]* Diagnosis Dysuria- Primary Acute prostatitis Pyuria Other nonspecific finding on examination of urine documented in this encounter [facility]Evaluation note* Diagnosis Type 2 diabetes [...] lumbosacral intervertebral disc documented in this encounter [facility]* Diagnosis Cardiac pacemaker in situ- Primary Sick sinus syndrome (Multi) Sinoatrial node dysfunction MRI safe cardiac pacemaker in situ Abnormal EKG Nonspecific abnormal electrocardiogram (ECG) (EKG) Chronotropic incompetence Other specified conduction disorder Sinoatrial node dysfunction (Multi) Sinoatrial node dysfunction Sinus bradycardia Other specified cardiac dysrhythmias Current smoker BMI 37.0-37.9, adult documented in this encounter [facility] Work Phone: Evaluation note* Diagnosis Sinus bradycardia Other specified cardiac dysrhythmias Sick sinus syndrome (Multi) Sinoatrial node dysfunction Chronotropic incompetence Other specified conduction disorder MRI safe cardiac pacemaker in situ documented in this encounter [facility] Work Phone: Evaluation note* Diagnosis Type [...] lumbosacral intervertebral disc documented in this encounter [facility] HealthcareEvaluation note* Diagnosis Type 2 diabetes [...] lumbosacral intervertebral disc documented in this encounter [facility] Healthcare[facility] note* Diagnosis Type 2 diabetes [...] gangrene, without long-term current use of insulin ([facility]) Peripheral vascular disease, unspecified (I73.9) Peripheral vascular disease, unspecified Type 2 diabetes mellitus with hyperglycemia, without long-term current use of insulin ([facility])- Primary Essential hypertension, benign ([facility] [facility] [address]) Essential hypertension, benign Chronic diastolic heart failure ([facility] [facility]) Chronic diastolic heart failure Chronic obstructive pulmonary disease, unspecified COPD type ([facility] [facility]) DDD (degenerative disc disease), lumbar Degeneration of lumbar or lumbosacral intervertebral disc Primary osteoarthritis of right hip Body mass index (BMI) 35.0-35.9, adult Dysuria- Primary Acute prostatitis Pyuria Other nonspecific finding on examination of urine Medicare annual wellness visit, subsequent- Primary Type 2 diabetes mellitus with hyperglycemia, without long-term current use of insulin ([facility] [facility]) Essential hypertension, benign ([facility]) Essential hypertension, benign Class 2 severe obesity due to excess calories with serious comorbidity and body mass index (BMI) of 37.0 to 37.9 in adult ([facility] [facility]) Chronic obstructive pulmonary disease with acute exacerbation ([facility])- Primary Chronic hypoxic respiratory failure ([facility]) Class 2 severe obesity due to excess calories with serious comorbidity and body mass index (BMI) of 36.0 to 36.9 in adult ([facility] [facility]) Essential hypertension, benign ([facility]) Essential hypertension, benign documented in this encounter [facility] HealthcareEvaluation note* Diagnosis Sick sinus syndrome (Multi)- Primary Sinoatrial node dysfunction Chronotropic incompetence Other specified conduction disorder Peripheral vascular disease, unspecified ([facility] [facility]) Peripheral vascular disease, unspecified Pacemaker Cardiac pacemaker in situ Essential hypertension, benign Sinus bradycardia Other specified cardiac dysrhythmias Hyperlipidemia, unspecified hyperlipidemia type Dyspnea on exertion Other dyspnea and respiratory abnormality BMI 37.0-37.9, adult Former smoker Personal history of tobacco use, presenting hazards to health Mild coronary artery disease documented in this encounter [facility] Work Phone: Evaluation note* Diagnosis Right leg pain- Primary Pain in soft tissues of limb Tobacco abuse Tobacco use disorder Class 3 severe obesity due to excess calories with serious comorbidity in adult, unspecified BMI ([facility] [facility]) Left inguinal hernia Inguinal hernia without mention of obstruction or gangrene, unilateral or unspecified, (not specified as recurrent) Claudication (CMS-HCC) Unspecified peripheral vascular disease [facility] Diagnosis Claudication (CMS-HCC)- Primary Unspecified peripheral vascular disease [facility] Diagnosis Type 2 diabetes mellitus with [...] hyperglycemia, without long-term current use of insulin ([facility] [facility]) Essential hypertension, benign ([facility] [facility]) Essential hypertension, benign Class 2 severe obesity due to excess calories with serious comorbidity and body mass index (BMI) of 37.0 to 37.9 in adult ([facility] [facility]) Chronic obstructive pulmonary disease with acute exacerbation ([facility] [facility])- Primary Chronic hypoxic respiratory failure ([facility] [facility]) Class 2 severe obesity due to excess calories with serious comorbidity and body mass index (BMI) of 36.0 to 36.9 in adult ([facility] [facility]) Essential hypertension, benign ([facility] [facility]) Essential hypertension, benign Degeneration of lumbar intervertebral disc Degeneration of [...] This led to a cardiac evaluation in [place] and its not clear to me whether [...] recent ischemic evaluation * 5 follow-up in [address] [place] [address] 600 DO Work Phone: History of Present illness Narrative* Patient is here for cardiovascular evaluation for second opinion in regard to documents resting sinus bradycardia. The patient is 56-year-old with history of tobacco use and COPD was evaluated recently due to shortness of breath and his stress test showed questionable inferior wall ischemia. This led to a cardiac evaluation in [place] and its not clear to me whether [...] ischemic evaluation * 5 follow-up in 6 [facility] Work Phone: History of Present illness Narrative* Patient is here for cardiovascular evaluation for second opinion in regard to documents resting sinus bradycardia. The patient is 56-year-old with history of tobacco use and COPD was evaluated recently due to shortness of breath and his stress test showed questionable inferior wall ischemia. This led to a cardiac evaluation in [place] and its not clear to me whether [...] ischemic evaluation * 5 follow-up in 6 [facility] Work Phone: History of Present illness [...] ischemic evaluation. He underwent cardiac catheterization in [place] which showed no significant obstructive disease * [...] EKG or earlier if the need arise [facility] 600 DO Work Phone: InstructionsNot on filedocumented in this encounter [facility] N[facility]* Imaging (Routine) - Pending Review Specialty Diagnoses / Procedures Referred By Isela mckay Referred To Contact Cardiology Diagnoses Sinus bradycardia Sick sinus syndrome (Multi) Chronotropic incompetence MRI safe cardiac pacemaker in situ Procedures Cardiac Device Check - In Clinic Naima Wright, LYNN-RADIOGRAPHER CARDIAC CATHETERIZATION Phone: tel: fax: Referral ID Status Reason Start Date Expiration Date Visits Requested Visits Authorized [id number] Pending Review Perform Procedure 11/09/2023 11/08/2024 1 1 [facility] Work Phone: Summary Purpose Family History [...] Preoperative cardiovascular examination Procedures Transthoracic Echo Complete NC ECHO TTHRC R-T 2D W/WOM-MODE COMPL SPEC&COLR D Amador Son MD [address] [place] [address] Referral ID Status Reason Start Date Expiration Date Visits Requested Visits Authorized [id number] Pending Review Perform Procedure 07/22/2023 07/21/2024 1 1 Specialty Diagnoses / Procedures Referred By Contac t Referred To Contact Diagnoses Sinus bradycardia Establishing care with new doctor, encounter for Procedures ECG 12 lead (Clinic Performed) Amador Son MD [address] [facility] [address] [place] [address] Referral ID Status Reason Start Date Expiration Date V isits Requested Visits Authorized [id number] Authorized 07/22/2023 07/21/2024 1 1 Specialty Diagnoses / Procedures Referred By Contac t Referred To Contact Radiology Diagnoses Pacemaker Procedures XR chest 2 views Ana M Kumari, SPORTS INFORMATION DIRECTOR-RADIOGRAPHER CARDIAC CATHETERIZATION [address] [facility] Medical [facility], Aditya [address] [place] [address] Referral ID Status Reason Start Date Expiration Date Visits Requested Visits Authorized [id number] Authorized Perform Procedure 08/05/2023 08/04/2024 1 1 Specialty Diagnoses / Procedures Referred By Contac t Referred To Contact Cardiology Diagnoses Pacemaker Procedures Cardiac Device Check - In Clinic Ana M Kumari, SPORTS INFORMATION DIRECTOR-RADIOGRAPHER CARDIAC CATHETERIZATION [address] [facility] Medical [facility], Aditya [address] [place] [address] Referral ID Status Reason Start Date Expiration Date Visits Requested Visits Authorized [id number] Pending Review Perform Procedure 08/05/2023 08/04/2024 1 1 Specialty Diagnoses / Procedures Referred By Contac t Referred To Contact Cardiology Diagnoses Localized swelling on left hand S/P placement of cardiac pacemaker Procedures Vascular US upper extremity venous duplex left Naima Wright, SPORTS INFORMATION DIRECTOR-RADIOGRAPHER CARDIAC CATHETERIZATION [address] [facility] Medical [facility], Adity[address] [place] [address] Referral ID Status Reason Start Date Expiration Date Visits Requested Visits Authorized [id number] Authorized Perform Procedure 08/09/2023 08/08/2024 1 1 Specialty Diagnoses / Procedures Referred By Contac t Referred To Contact Cardiology Diagnoses Cardiac pacemaker in situ Sinoatrial node dysfunction (Multi) Procedures Cardiac Device Check - Remote Amador Son MD [address] [address] Referral ID Status Reason Start Date Expiration Date Visits Requested Visits Authorized [id number] Pending Review Perform Procedure 08/08/2023 08/07/2024 1 1 Specialty Diagnoses / Procedures Referred By Contac t Referred To Contact Cardiology Diagnoses Sinus bradycardia Sick sinus syndrome (Multi) Chronotropic incompetence MRI safe cardiac pacemaker in situ Procedures Cardiac Device Check - In Clinic Naima Wright SPORTS INFORMATION DIRECTOR-RADIOGRAPHER CARDIAC CATHETERIZATION [address] [facility], [address] [address] Referral ID Status Reason Start Date Expiration Date Visits Requested Visits Authorized [id number] Pending Review Perform Procedure 11/09/2023 11/08/2024 1 1 Specialty Diagnoses / Procedures Referred By Contac t Referred To Contact Cardiology Diagnoses Sick sinus syndrome (Multi) MRI safe cardiac pacemaker in situ Procedures Follow Up In Cardiology Naima Wright SPORTS INFORMATION DIRECTOR-RADIOGRAPHER CARDIAC CATHETERIZATION [address] [facility], [address] [address] Amador Son MD [address] [address] Referral ID Status Reason Start Date Expiration Date V isits Requested Visits Authorized [id number] Authorized 11/09/2023 11/08/2024 1 1 Specialty Diagnoses / Procedures Referred By Contac t Referred To Contact Diagnoses Sinus bradycardia Procedures ECG 12 lead (Clinic Performed) Naima Wright SPORTS INFORMATION DIRECTOR-RADIOGRAPHER CARDIAC CATHETERIZATION [address] [facility], [address] [address] Referral ID Status Reason Start Date Expiration Date V isits Requested Visits Authorized [id number] Authorized 11/09/2023 11/08/2024 1 1 Specialty Diagnoses / Procedures Referred By Contac t Referred To Contact Diagnoses Claudication ([facility]) Procedures Vas art doppler lwr bilat mult lev/PVR Roc Ramsey, [address] [place] [address] Referral ID Status Reason Start Date Expiration Date V isits Requested Visits Authorized [id number] Pending Review 12/14/2023 12/13/2024 1 1 Chief Complaint and Reason for [...] section and content) DATE CREATED AUTHOR 03/06/2021 [facility] DATE CREATED AUTHOR AUTHOR'S ORGANIZ ATION 03/12/2021 [facility] DATE CREATED AUTHOR AUTHOR'S ORGANIZ ATION 02/16/2022 [facility] DATE CREATED AUTHOR AUTHOR'S ORGANIZ ATION 07/16/2022 [facility] DATE CREATED AUTHOR AUTHOR'S ORGANIZ ATION 07/16/2022 [facility] DATE CREATED AUTHOR AUTHOR'S ORGANIZ ATION 09/17/2022 [facility] DATE CREATED AUTHOR AUTHOR'S ORGANIZ ATION 04/03/2024 [facility] DATE CREATED AUTHOR AUTHOR'S ORGANIZ ATION 04/30/2024 [facility] DATE CREATED AUTHOR AUTHOR'S ORGANIZ ATION 05/26/2024 [facility] DATE CREATED AUTHOR AUTHOR'S ORGANIZ ATION 06/08/2024 [facility] DATE CREATED AUTHOR AUTHOR'S ORGANIZ ATION 06/15/2024 [facility] Reason for Visit (unrecogniz ed section and content) Reason Comments New Patient Visit Pt is here today as a new patient from Dr. Ty Specialty Diagnoses / Procedures Referred By Isela t Referred To Contact Cardiology Diagnoses Sinus bradycardia Valentino Ty MD [address] [address], [address] [address] Amador Son MD [address] [address] Referral ID Status Reason Start Date Expiration Date Visits Requested Visits Authorized [id number] Authorized Specialty Services Required 07/15/2023 07/14/2024 1 1 Specialty Diagnoses / Procedures Referred By Isela t Referred To Contact Diagnoses Sinus bradycardia Chronotropic incompetence Sick sinus syndrome (CMS/HCC) Other fatigue Sinus bradycardia [R00.1] Chronotropic incompetence [I45.89] Sick sinus syndrome (CMS/HCC) [I49.5] Other fatigue [R53.83] Procedures NC INS NEW/RPLCMT PRM PM W/TRANSV ELTRD ATRIAL&VENT PPM IMPLANT DUAL Amador Son MD [address] [facility] [address] [place] [address] [facility] [address] [place] [address] Referral ID Status Reason Start Date Expiration Date Visits Re quested Visits Authorized [id number] 1 1 Reason Comments Wound Check Patient is having sw elling in his right hand Specialty Diagnoses / Procedures Referred By Isela mckay Referred To Contact Cardiology Diagnoses Localized swelling on left hand S/P placement of cardiac pacemaker Procedures Vascular US upper extremity venous duplex left Yusuf-Naima Rodriguez E, SPORTS INFORMATION DIRECTOR-RADIOGRAPHER CARDIAC CATHETERIZATION [address] [address] Referral ID Status Reason Start Date Expiration Date Visits Requested Visits Authorized [id number] Authorized Perform Procedure 08/09/2023 08/08/2024 1 1 Specialty Diagnoses / Procedures Referred By Isela t Referred To Contact Cardiology Diagnoses Cardiac pacemaker in situ Sinoatrial node dysfunction (Multi) Procedures Cardiac Device Check - Remote Amador Son MD [address] [place] [address] [address] [place] [address] Referral ID Status Reason Start Date Expiration Date Visits Requested Visits Authorized [id number] Pending Review Perform Procedure 08/08/2023 08/07/2024 1 1 Reason Onset Date Comments Med Refill 03/01/2024 Reason Onset Date Comments Med Refill 03/30/2024 Reason Comments Follow-up Pt is here today fol lowing up with device check Specialty Diagnoses / Procedures Referred By Contac t Referred To Contact Diagnoses Sinus bradycardia Procedures ECG 12 lead (Clinic Performed) Naima Wright, SPORTS INFORMATION DIRECTOR-RADIOGRAPHER CARDIAC CATHETERIZATION [address] [facility], [address] [address] Referral ID Status Reason Start Date Expiration Date V isits Requested Visits Authorized [id number] Authorized 11/09/2023 11/08/2024 1 1 Specialty Diagnoses / Procedures Referred By Contac t Referred To Contact Cardiology Diagnoses Pacemaker Procedures Cardiac Device Check - In Clinic Ana M Kumari, SPORTS INFORMATION DIRECTORMANHATTAN PS[facility] [address] [facility], [address] [address] Referral ID Status Reason Start Date Expiration Date Visits Requested Visits Authorized [id number] Pending Review Perform Procedure 08/05/2023 08/04/2024 1 1 Specialty Diagnoses / Procedures Referred By Contac t Referred To Contact Radiology Diagnoses Pacemaker Procedures XR chest 2 views Ana M Kumari, SPORTS INFORMATION DIRECT[facility]WRENTH[facility] [address] [facility], [address] [address] Referral ID Status Reason Start Date Expiration Date Visits Requested Visits Authorized [id number] Authorized Perform Procedure 08/05/2023 08/04/2024 1 1 Reason Comments Medicare Annual Wellness Visit Hailey mckay Wellness Reason Onset Date Comments Med Refill [...] Procedures Follow Up In Cardiology Naima Wright, SPORTS INFORMATION DIRECTOR-RADIOGRAPHER CARDIAC CATHETERIZATION Phone: tel: fax: Amador Son MD [address] [address] Phone: tel: fax: Referral ID Status Reason Start Date Expiration Date V isits Requested Visits Authorized [id number] Authorized 11/09/2023 11/08/2024 1 1 Reason Onset Date Comments Med Refill 05/28/2024 Reason Onset Date Comments Med Refill 05/29/2024 Reason Comments Follow-up Hospital f/up Reason Comments Follow-up 6m Specialty Diagnoses / Procedures Referred By Contac t Referred To Contact Cardiology Diagnoses Chronotropic incompetence Procedures Follow Up In Cardiology Valentino Ty MD [address] [place] [address] Phone: tel: fax: Valentino Ty MD [address] [place] [address] Phone: tel: fax: Referral ID Status Reason Start Date Expiration Date V isits Requested Visits Authorized [id number] Authorized 12/01/2023 11/30/2024 1 1 Reason Comments Follow-up RECHECK INGUINAL HER QUINN, RIGHT Reason Onset Date Comments Med Refill 06/26/2024 Care Teams (unrecognized sec tion and content) Electrical Engineer Mep Relationship Specialty Start Date End Date Ishmael Simon MD [address] [place] [address] PCP - General Family Medicine 06/29/23 Electrical Engineer Mep Relationship Specialty Start Date End Date Ishmael Simon MD [address] [place] [address] PCP - General Family Medicine 06/29/23 Electrical Engineer Mep Relationship Specialty Start Date End Date Ishmael Simon MD [address] [place] [address] PCP - General Family Medicine 06/29/23 Electrical Engineer Mep Relationship Specialty Start Date End Date Ishmael Simon MD [address] [place] [address] PCP - General Family Medicine 06/29/23 Electrical Engineer Mep Relationship Specialty Start Date End Date Ishmael Simon MD PCP - General Family Medicine 06/29/23 Electrical Engineer Mep Relationship Specialty Start Date End Date Ishmael Simon MD [address] [place] [address] PCP - General Family Medicine 06/29/23 Naima Wright, SPORTS INFORMATION DIRECTOR-RADIOGRAPHER CARDIAC CATHETERIZATION [address] [facility] Medical Office Bl, [address] [id number] Nurse Practitioner Cardiology 11/07/23 Electrical Engineer Mep Relationship Specialty Start Date End Date Ishmael Simon MD [address] [place] [phone] PCP - General Family Medicine 10/10/23 Team [...] 27, 2024 End: March 27, 2024 Danielle E Rubio , ADOPTION COUNSELOR-C Attending Provider Active St art: March 27, 2024 End: March 27, 2024 Electrical Engineer Mep Relationship Specialty Start Date End Date Ishmael Simon MD [address] [place] [address] PCP - General Family Medicine 06/29/23 Naima Wright, SPORTS INFORMATION DIRECTOR-RADIOGRAPHER CARDIAC CATHETERIZATION [address] [facility], [facility] [address] [place] [address] Nurse Practitioner Cardiology 11/07/23 Electrical Engineer Mep Relationship Specialty Start Date End Date Ishmael Simon MD [address] [place] [address] PCP - General Family Medicine 06/29/23 Naima Wright, SPORTS INFORMATION DIRECTOR-RADIOGRAPHER CARDIAC CATHETERIZATION [address] [facility], [facility] [address] [place] [address] Nurse Practitioner Cardiology 11/07/23 Electrical Engineer Mep Relationship Specialty Start Date End Date Ishmael Simon MD [address] [place] [phone] PCP - General Family Medicine 10/10/23 Electrical Engineer Mep Relationship Specialty Start Date End Date Ishmael Simon MD [address] [place] [address] PCP - General Family Medicine 10/10/23 Electrical Engineer Mep Relationship Specialty Start Date End Date Ishmael Simon MD [address] [place] [phone] PCP - General Family Medicine 10/10/23 Electrical Engineer Mep Relationship Specialty Start Date End Date Ishmael Simon MD [address] [place] [address] PCP - General Family Medicine 06/29/23 Naima Wright, SPORTS INFORMATION DIRECTOR-RADIOGRAPHER CARDIAC CATHETERIZATION [address] [facility] Office Bldg, Adity[address] [place] [address] Nurse Practitioner Cardiology 11/07/23 Electrical Engineer Mep Relationship Specialty Start Date End Date Ishmael Simon MD [address] [place] [address] PCP - General Family Medicine 10/10/23 Electrical Engineer Mep Relationship Specialty Start Date End Date Ishmael Simon MD [address] [place] [place] [address] PCP - General Family Medicine 10/10/23 Electrical Engineer Mep Relationship Specialty Start Date End Date Ishmael Simon MD [address] [place] [address] PCP - General Family Medicine 10/10/23 Electrical Engineer Mep Relationship Specialty Start Date End Date Ishmael Simon MD [address] [place] [address] PCP - General Family Medicine 10/10/23 Electrical Engineer Mep Relationship Specialty Start Date End Date Ishmael Simon MD [address] [place] [place] [address] PCP - General Family Medicine 10/10/23 Electrical Engineer Mep Relationship Specialty Start Date End Date Ishmael Simon MD [address] [place] [address] PCP - General Family Medicine 10/10/23 Electrical Engineer Mep Relationship Specialty Start Date End Date Ishmael Simon MD [address] [place] [address] PCP - General Family Medicine 10/10/23 Electrical Engineer Mep Relationship Specialty Start Date End Date Ishmael Simon MD [address] [place] [place] [address] PCP - General Family Medicine 10/10/23 Electrical Engineer Mep Relationship Specialty Start Date End Date Ishmael Simon MD [address] [place] [address] PCP - General Family Medicine 06/29/23 Amador Son MD [address] [facility], [facility] [address] [place] [address] Artist Blacksmith Electrophysiology 05/17/24 Electrical Engineer Mep Relationship Specialty Start Date End Date Ishmael Simon MD [address] [place] [address] PCP - General Family Medicine 06/29/23 Amador Son MD [address] [facility], [facility] [address] [place] [address] Artist Blacksmith Electrophysiology 05/17/24 Electrical Engineer Mep Relationship Specialty Start Date End Date Ishmael Simon MD [address] [place] [address] PCP - General Family Medicine 10/10/23 Electrical Engineer Mep Relationship Specialty Start Date End Date Ishmael Simon MD [address] [place] [address] PCP - General Family Medicine 10/10/23 Electrical Engineer Mep Relationship Specialty Start Date End Date Ishmael Simon MD [address] [place] [address] PCP - General Family Medicine 10/10/23 Electrical Engineer Mep Relationship Specialty Start Date End Date Ishmael Simon MD [address] [place] [address] PCP - General Family Medicine 10/10/23 Electrical Engineer Mep Relationship Specialty Start Date End Date Ishmael Simon MD [address] [place] [address] PCP - General Family Medicine 06/29/23 Amador Son MD [address] [facility] Office Bl, [address] [phone] Artist Blacksmith Electrophysiology 05/17/24 Electrical Engineer Mep Relationship Specialty Start Date End Date Ishmael Simon MD [address] [place] [address] PCP - General Family Medicine 10/10/23 Electrical Engineer Mep Relationship Specialty Start Date End Date Ishmael Simon MD [address] [place] [address] PCP - General Family Medicine 08/16/19 Electrical Engineer Mep Relationship Specialty Start Date End Date Ishmael Simon MD [address] [place] [address] PCP - General Family Medicine 08/16/19 Electrical Engineer Mep Relationship Specialty Start Date End Date Ishmael Simon MD PCP - General Family Medicine 08/16/19 Electrical Engineer Mep Relationship Specialty Start Date End Date Ishmael Simon MD [address] [place] [address] PCP - General Family Medicine 10/10/23 Scheduled [...] Continuous, Starting on Tue08/05/23 at 1230, Preprocedure, administrative representative to EP lab 1221 ([employer] Bag [...] sectionGoals may be documented in an alternate sectionNot on filedocumented as of this encounterNot on filedocumented as of this encounterNot on filedocumented as of this encounter FOR RECORDS PERTAINING TO PATIENTS WHO ARE [...] BE BASED ON THE PRIMARY CLINICAL RECORDS. [facility] [employer] [facility]. provides no warranty or guarantee of the accuracy or completeness of information in this document.
[2024-07-10 08:40] VITALS: BP 139/60; PULSE 83; O2SAT 96
[2024-07-10 08:41] VITALS: BP 131/60; PULSE 81; O2SAT 96
[2024-07-10] MEDS: METHYLPREDNISOLONE ACETATE 40 MG/ML VIAL 20 MG IM (08:41)
[2024-07-10] MEDS: BUPIVACAINE HCL 0.25% PF 25 MG/10 ML VIAL INJ (08:42)
[2024-07-10] MEDS: IOHEXOL 240 MG/ML - 10 ML VIAL INJ (08:44)
[2024-07-10] MEDS: LIDOCAINE HCL 2% PF 100 MG/5 ML VIAL INJ (08:48)
== END 2024-07-10 08:52 | disposition home or self-care (01) ==
LOC: SURGOUT 07:28
PROVIDERS: PCP Family Medicine; Visit Provider Anesthesiology Pain Medicine
DX: G57.81 Other specified mononeuropathies of right lower limb (principal)
CPT/HCPCS: 64450; J0665; J1010; Q9966

== ENCOUNTER 2024-07-25 09:50 | Outpatient (OUT) | payer MEDICARE, SELFPAY ==
[2024-07-25 11:31] LABS: Creatinine Urine Random 54.58 mg/dL (20.00-300.00); Microalbum Creatinine Ratio Ur 23.8 mg/g (0.0-29.9); Microalbumin Urine Random 1.3 mg/dL (<=30.0)
== END 2024-07-25 09:51 | disposition home or self-care (01) ==
LOC: LAB 09:51
PROVIDERS: PCP Family Medicine; Visit Provider Family Medicine
DX: E11.65 Type 2 diabetes mellitus with hyperglycemia (principal)
CPT/HCPCS: 82043; 82570

== ENCOUNTER 2024-07-30 13:53 | Emergency (ER) | payer MEDICARE, SELFPAY ==
[2024-07-30 14:05] VITALS: BP 151/76; PULSE 84; TEMP 37.2; O2SAT 94; BMI 34.3
--- NOTE | 2024-07-30 14:19 | ED_ITS ---
HPI - Wound/Laceration General Chief Complaint: Wound/Laceration Stated Complaint: LACERATION R LEG Time Seen by Provider: 07/30/24 13:55 Source: patient Mode of arrival: walk-in Limitations: no limitations History of Present Illness HPI narrative: Patient is a 59-year-old male who presents to the emergency department for evaluation of a laceration to the right anterior brambila. He states his leg was caught on a car door. He has noted to have a small superficial skin tear noted to the right anterior tibia. He does not take blood thinners. Bleeding is well-controlled. Tetanus is within 5 years. He denies any other areas of injury and is able to ambulate without difficulty. He has no complaints of pain and no other focal medical complaints. Related Data Home Medications ?Medication ?Instructions ?Recorded ?Confirmed albuterol 90 mcg/actuation aerosol 90 mcg inhalation .Q6HRS PRN 10/14/22 07/30/24 inhaler shortness of breath or wheezing baclofen 10 mg tablet 10 mg PO BID 10/14/22 07/30/24 fluticasone fur. 100 mcg-umeclid 1 inh inhalation DAILY 10/14/22 07/30/24 62.5 mcg-vilant 25 mcg inhalat.powder (Trelegy Ellipta) furosemide 40 mg tablet 40 mg PO BID 10/14/22 07/30/24 montelukast 10 mg tablet 10 mg PO DAILY 10/14/22 07/30/24 nabumetone 500 mg tablet 500 mg PO BID 10/14/22 07/30/24 omeprazole 40 mg capsule,delayed 40 mg PO DAILY 10/14/22 07/30/24 release oxycodone-acetaminophen 7.5 mg-325 1 tab PO Q6H 10/14/22 07/30/24 mg tablet spironolactone 100 mg tablet 100 mg PO DAILY 10/14/22 07/30/24 cetirizine 10 mg tablet (24Hour 10 mg PO DAILY PRN allergy symptoms 04/16/24 07/30/24 Allergy) pregabalin 100 mg capsule mg 07/10/24 Previous Rx's ?Medication ?Instructions ?Recorded baclofen 10 mg tablet See Rx Instructions .Route 07/12/24 .COMPLEX PRN muscle spasm #60 tabs cephalexin 500 mg capsule 500 mg PO Q8H 5 days #15 caps 07/30/24 Allergies Allergy/AdvReac Type Severity Reaction Status Date / Time No Known Drug Allergies Allergy Verified 07/30/24 14:08 Review of Systems ROS Constitutional Denies: fever or chills Ears, nose, mouth, and throat Denies: throat pain or nasal congestion Cardiovascular Denies: chest pain Respiratory Denies: shortness of breath or cough Gastrointestinal Denies: nausea or vomiting Musculoskeletal Denies: back pain Integumentary/Breast Denies: rash Neurological Denies: numbness in extremities or weakness in extremities Hematologic/Lymphatic Denies: easy bruising or easy bleeding [facility] Medical History (Updated 07/30/24 @ 14:14 by VINCENZO Jackson) COPD exacerbation ?J44.1 - Chronic obstructive pulmonary disease with (acute) exacerbation (ICD-10) Lumbar degenerative disc disease ?M51.369 - Other intervertebral disc degeneration, lumbar region without mention of lumbar back pain or lower extremity pain (ICD-10) Right shoulder pain ?M25.511 - Pain in right shoulder (ICD-10) Obesity ?E66.9 - Obesity, unspecified (ICD-10) Kidney failure ?N19 - Unspecified kidney failure (ICD-10) Smoker ?F17.200 - Nicotine dependence, unspecified, uncomplicated (ICD-10) COPD (chronic obstructive pulmonary disease) ?J44.9 - Chronic obstructive pulmonary disease, unspecified (ICD-10) Hypertension ?I10 - Essential (primary) hypertension (ICD-10) Surgical History (Updated 05/27/24 @ 17:23 by Dora Lyons RN) H/O hernia repair ?Z98.890 - Other specified postprocedural states (ICD-10) ?Z87.19 - Personal history of other diseases of the digestive system (ICD-10) History of removal of cyst ?Z98.890 - Other specified postprocedural states (ICD-10) H/O elbow surgery ?Z98.890 - Other specified postprocedural states (ICD-10) S/P bladder repair ?Z98.890 - Other specified postprocedural states (ICD-10) S/P total hip arthroplasty ?Z96.649 - Presence of unspecified artificial hip joint (ICD-10) S/P cardiac pacemaker procedure ?Z95.0 - Presence of cardiac pacemaker (ICD-10) Family History (Updated 05/27/24 @ 17:24 by Dora Lyons RN) Mother Family history of cancer Family history of COPD (chronic obstructive pulmonary disease) Social History Within the past year, how often did you have a drink containing alcohol: never Score interpretation: A score less than 4 is consistent with normal alcohol consumption. Smoking status: Current every day smoker Non-prescribed substance use: cannabis (any form) Highest level of school completed/degree received: high school graduate Little interest or pleasure in doing things: not at all Feeling down, depressed, or hopeless: not at all Exam Narrative Exam Narrative: Gen.: Awake, alert, in no distress Head: Normocephalic, atraumatic ENT: Moist mucous membranes Respiratory: No respiratory distress Extremities: Moves extremities equally, 0.5 cm V-shaped skin tear that does not extend deep into the subcutaneous tissue on the right anterior tibia. No active bleeding. No deep lacerations noted. No bony tenderness of the right leg Psych: Normal mood and affect Neuro: No focal neuro deficit Skin: Warm, dry Constitutional Vital Signs, click to edit/add: Last Vital Signs Temp 98.9 F 07/30/24 14:05 Pulse 84 07/30/24 14:05 Resp 18 07/30/24 14:05 BP 151/76 H 07/30/24 14:05 Pulse Ox 94 L 07/30/24 14:05 O2 Del Method Room Air 07/30/24 14:05 Course Vital Signs Vital signs: Vital Signs Temperature 98.9 F 07/30/24 14:05 Pulse Rate 84 07/30/24 14:05 Respiratory Rate 18 07/30/24 14:05 Blood Pressure 151/76 H 07/30/24 14:05 Pulse Oximetry 94 L 07/30/24 14:05 Oxygen Delivery Method Room Air 07/30/24 14:05 Temperature 98.9 F 07/30/24 14:05 Pulse Rate 84 07/30/24 14:05 Respiratory Rate 18 07/30/24 14:05 Blood Pressure 151/76 H 07/30/24 14:05 Pulse Oximetry 94 L 07/30/24 14:05 Oxygen Delivery Method Room Air 07/30/24 14:05 MDM - Wound/Laceration MDM Narrative Medical decision making narrative: Small skin tear was cleansed and dressed, patient remains neurovascularly intact. A short course of Keflex given for antibiotic prophylaxis due to remote history of diabetes. Follow-up with PCP and return to the ER if symptoms change or worsen SUPERVISED APC VISIT, PHYSICIAN ATTESTATION: Based on the medical record the care appears appropriate. ? Medical Records Attestation: I reviewed the patient's medical records. Discharge Plan Discharge Chief Complaint: Wound/Laceration Clinical Impression: Noninfected skin tear of right leg Patient Disposition: Home, Self-Care Time of Disposition Decision: 14:14 Condition: Good Prescriptions / Home Meds: New cephalexin 500 mg capsule 500 mg PO Q8H 5 Days Qty: 15 0RF No Action cetirizine [24Hour Allergy] 10 mg tablet 10 mg PO DAILY PRN (Reason: allergy symptoms) baclofen 10 mg tablet See Rx Instructions .ROUTE .COMPLEX PRN (Reason: muscle spasm) Qty: 60 2RF Rx Instructions: 1/2-1 TAB PO BID PRN albuterol 90 mcg/actuation aerosol 90 mcg inhalation .Q6HRS PRN (Reason: shortness of breath or wheezing) furosemide 40 mg tablet 40 mg PO BID montelukast 10 mg tablet 10 mg PO DAILY nabumetone 500 mg tablet 500 mg PO BID spironolactone 100 mg tablet 100 mg PO DAILY Trelegy Ellipta 100-62.5-25 mcg blister with device 1 inh inhalation DAILY omeprazole 40 mg capsule,delayed release(DR/EC) 40 mg PO DAILY oxycodone-acetaminophen 7.5-325 mg tablet 1 tab PO Q6H baclofen 10 mg tablet 10 mg PO BID Rx Instructions: 1/2 to 1 tab twice daily pregabalin 100 mg capsule Print Language: Amharic Instructions: Skin Tear (ED) Referrals: Ishmael Watts MD [Primary Care Provider] - 1 week
[2024-07-30] MEDS: BACITRACIN OINTMENT 28.4 GM TUBE 1 APPLIC TOPICAL (14:29)
--- NOTE | 2024-07-30 14:30 | PC.NURSE ---
wound cleansed with soap and water, bulky dry non stick dressing applied, pt tolerated well
== END 2024-07-30 14:34 | disposition home or self-care (01) ==
PROVIDERS: Emergency Provider Student in an Organized Health Care Education/Training Program; PCP Family Medicine
DX: S81.811A Laceration without foreign body, right lower leg, initial encounter (principal); W45.8XXA Other foreign body or object entering through skin, initial encounter; Z95.0 Presence of cardiac pacemaker; Z96.649 Presence of unspecified artificial hip joint; F17.200 Nicotine dependence, unspecified, uncomplicated
CPT/HCPCS: 99283

== ENCOUNTER 2024-08-06 14:37 | Outpatient (OUT) | payer MEDICARE, SELFPAY ==
--- NOTE | 2024-08-06 15:52 | P.CN_ITS ---
Consult Note: HPI Data of Consult Patient: known to practice within the last 3 years Requesting Physician: Lizeth Agureo MD Primary Care Provider: Ishmael Watts MD Consult Narrative Reason for consult: right thigh pain Narrative: 59yom who presents for assessment. notes good relief after recent obturator nerve block. started lyrica, though notes increasing flatulence with this, so has cut back to bid. cc:: CC: Lizeth Aguero MD Review of Systems ROS Status of ROS 10 or more systems reviewed and unremark able except as noted in history and below PFSH [facility] Medical History COPD exacerbation ?J44.1 - Chronic obstructive pulmonary disease with (acute) exacerbation (ICD-10) Lumbar degenerative disc disease ?M51.369 - Other intervertebral disc degeneration, lumbar region without mention of lumbar back pain or lower extremity pain (ICD-10) Right shoulder pain ?M25.511 - Pain in right shoulder (ICD-10) Obesity ?E66.9 - Obesity, unspecified (ICD-10) Kidney failure ?N19 - Unspecified kidney failure (ICD-10) Smoker ?F17.200 - Nicotine dependence, unspecified, uncomplicated (ICD-10) COPD (chronic obstructive pulmonary disease) ?J44.9 - Chronic obstructive pulmonary disease, unspecified (ICD-10) Hypertension ?I10 - Essential (primary) hypertension (ICD-10) Surgical History H/O hernia repair ?Z98.890 - Other specified postprocedural states (ICD-10) ?Z87.19 - Personal history of other diseases of the digestive system (ICD-10) History of removal of cyst ?Z98.890 - Other specified postprocedural states (ICD-10) H/O elbow surgery ?Z98.890 - Other specified postprocedural states (ICD-10) S/P bladder repair ?Z98.890 - Other specified postprocedural states (ICD-10) S/P total hip arthroplasty ?Z96.649 - Presence of unspecified artificial hip joint (ICD-10) S/P cardiac pacemaker procedure ?Z95.0 - Presence of cardiac pacemaker (ICD-10) Family History Mother Family history of cancer Family history of COPD (chronic obstructive pulmonary disease) Social History Within the past year, how often did you have a drink containing alcohol: never Score interpretation: A score less than 4 is consistent with normal alcohol consumption. Smoking status: Current every day smoker Non-prescribed substance use: cannabis (any form) Highest level of school completed/degree received: high school graduate Little interest or pleasure in doing things: not at all Feeling down, depressed, or hopeless: not at all Meds Home Medications and Allergies Home Medications ?Medication ?Instructions ?Recorded ?Confirmed ?Type albuterol 90 mcg/actuation aerosol 90 mcg inhalation .Q6HRS PRN 10/14/22 07/30/24 History inhaler shortness of breath or wheezing baclofen 10 mg tablet 10 mg PO BID 10/14/22 07/30/24 History fluticasone fur. 100 mcg-umeclid 1 inh inhalation DAILY 10/14/22 07/30/24 History 62.5 mcg-vilant 25 mcg inhalat.powder (Trelegy Ellipta) furosemide 40 mg tablet 40 mg PO BID 10/14/22 07/30/24 History montelukast 10 mg tablet 10 mg PO DAILY 10/14/22 07/30/24 History nabumetone 500 mg tablet 500 mg PO BID 10/14/22 07/30/24 History omeprazole 40 mg capsule,delayed 40 mg PO DAILY 10/14/22 07/30/24 History release oxycodone-acetaminophen 7.5 mg-325 1 tab PO Q6H 10/14/22 07/30/24 History mg tablet spironolactone 100 mg tablet 100 mg PO DAILY 10/14/22 07/30/24 History cetirizine 10 mg tablet (24Hour 10 mg PO DAILY PRN allergy symptoms 04/16/24 07/30/24 History Allergy) pregabalin 100 mg capsule mg 07/10/24 History baclofen 10 mg tablet See Rx Instructions .Route 07/12/24 07/30/24 Rx .COMPLEX PRN muscle spasm #60 tabs cephalexin 500 mg capsule 500 mg PO Q8H 5 days #15 caps 07/30/24 Rx Allergies Allergy/AdvReac Type Severity Reaction Status Date / Time No Known Drug Allergies Allergy Verified 07/30/24 14:08 Exam Narrative Exam Narrative: Psych-alert and oriented x 3. Attentive and appropriate, constitutionally normal, displays normal mood and affect per situation.? There are no obvious deficits in memory, reasoning, or intellect.? Skin-no obvious rashes, bruising, erythema noted to the patient's area of pain. Extremities- extremities are warm with minimal edema and palpable pulses. Lumbar-no significant tenderness to palpation noted in the lumbar spine and paraspinal musculature.? Pain is elicited with extension, and lateral rotation of the lumbar spine. Range of motion is slightly diminished with these motions due to pain. Coordination remains intact.? Gait remains non-antalgic. Assessment and Plan Assessment and Plan (1) Right thigh pain: (2) Myofascial pain: (3) Lumbar spondylosis: Plan 59yom who presents for assessment. failed conservative measures, as noted. given good response to obturator nerve block, may benefit from botox injection of the right adductor muscle. he is in agreement. meds reviewed, will continue lyrica bid. follow up after procedure.
== END 2024-08-06 14:38 | disposition home or self-care (01) ==
LOC: PM 14:38
PROVIDERS: PCP Family Medicine; Visit Provider Anesthesiology Pain Medicine
DX: M79.651 Pain in right thigh (principal); M79.18 Myalgia, other site; M47.816 Spondylosis without myelopathy or radiculopathy, lumbar region
CPT/HCPCS: G0463

== ENCOUNTER 2024-08-09 07:55 | Outpatient (OUT) | payer MEDICARE, SELFPAY ==
--- NOTE | 2024-08-09 07:57 | CT_ITS ---
The [address] [address] Patient Name: LILIANA MICHAELS MRN: [id number] date: 1965 Sex: M Assigned Patient Location: CT Current Patient Location: CT Accession/Order Number: [id number] Exam Date: 08/09/2024 08:33 Report Date: 08/09/2024 08:45 At the request of: AMINA CASSIDY DO Procedure: CT lung screening low-dose LOW-DOSE SCREENING CHEST CT WITHOUT CONTRAST COMPARISON: 07/15/2022 CLINICAL DATA: Current smoker with 47 year history of tobacco use Spiral axial unenhanced low-dose images were obtained through the chest. Images were reviewed using both narrow and wide window settings. This CT exam was performed using one or more following dose reduction techniques: Automated exposure control, adjustment of the mA and/or kV according to patient size, or use of iterative reconstruction technique. The heart is within normal limits for size. There is minimal coronary disease. Patient has a left-sided pacemaker. No aortic aneurysm is noted. There are similar small mediastinal lymph nodes. Minor gynecomastia is present. Old rib fractures are seen. There is endplate spurring at the spine. No consolidation, pleural effusion or pneumothorax is present. Minor scarring or atelectasis is visualized at the lung bases, greater on the left where there is similar nodular component at the lower lobe. A punctate nodular density is also again seen at the right middle lobe. No developing nodularity is noted. Limited cuts through the upper abdomen again show slight nodular adrenal limb thickening. CT/CT lung screening low-dose IMPRESSION: SIMILAR SCARRING AND NODULARITY. NO DEVELOPING NODULES. Lung RADS category 2 - benign Twelve-month low-dose CT follow-up suggested Impression dictated by: Candida Wright M.D.08/09/2024 8:45 AM Dictation Location: [place] [address] Electronically authenticated by: [id number] Y Date: 08/09/2024 08:45
--- OUTSIDE RECORDS SUMMARY | 2024-08-09 08:01 | XMS_ITS ---
Author Name Auto Generated Organization OHIP Support Name Relationship Address Phone WILMA MARQUEZ Next of Kin Unknown [phone] [employer] Next of Kin Unknown Unavailable CARNES, MARCIA Next of Kin Unknown [phone] MARQUEZ, WILMA Next of Kin Unknown [phone] [employer] Next of Kin Unknown Unavailable CARNES, MARCIA Next of Kin Unknown [phone] [employer] Next of Kin Unknown Unavailable CARNES, MARCIA Next of Kin Unknown [phone] MARQUEZ, WILMA Next of Kin Unknown [phone] Carnes, Marcia Next of Kin Unknown + Carnes, Marcia Next of Kin Unknown + [employer] Next of Kin Unknown Unavailable CARNES, MARCIA Next of Kin Unknown [phone] MARQUEZ, WILMA Next of Kin Unknown [phone] [employer] Next of Kin Unknown Unavailable CARNES, MARCIA Next of Kin Unknown [phone] MARQUEZ, WILMA Next of Kin Unknown [phone] [employer] Next of Kin Unknown Unavailable CARNES, MARCIA Next of Kin Unknown [phone] [employer] Next of Kin Unknown Unavailable CARNES, MARCIA Next of Kin Unknown [phone] [employer] Next of Kin Unknown Unavailable [employer] Next of Kin Unknown Unavailable [employer] Next of Kin Unknown Unavailable CARNES, MARCIA Next of Kin Unknown [phone] MARQUEZWILMA JOSE Next of Kin Unknown [phone] [employer] Next of Kin Unknown Unavailable CARNES, MARCIA Next of Kin Unknown [phone] CARNES, MARCIA Next of Kin Unknown + CARNES, MARCIA Next of Kin Unknown + CARNES, MARCIA Next of Kin Unknown + Care Team Providers Care Fabrication Manager Name Role Phone MATTHEW SON Attending Unavailable [facility] Primary Care Unavailabl e NADERER, [facility] Care Unavailabl e MCKENNA NAIMA E Attending Unavaila ble [facility] Care Unavailabl e BETHANY TYF Attending Unavailable BETHANY TYF Referring Unavailable NADERER, [facility] Care Unavailabl e MATTHEW SON Attending Unavailable MCKENNA NAIMA E Referring Unavaila ble NADERER, [facility] Primary Care Unavailabl e BETHANY TYF Attending Unavailable TRABISIS, MOURJOSEF Referring Unavailable [facility] Care Unavailabl e Danielle Bergeron E Attending Unavailable [facility] Unavailable Rubio, Danielle E Admitting Unavailable Danielle Bergeron Attending Unavailable [facility] Unavailable Rubio, Danielle Cem Admitting Unavailable Amy LANE, Jong Villalobos Attending Unavailable MCKENNA NAIMA E Referring Unavaila ble [facility] Primary Care Unavailabl e SHAN SONTO N Referring Unavailable NADERER, [facility] Primary Care Unavailabl e BERT METCALF Referring Unavailable NADERER, [facility] Primary Care Unavailabl e BERT METCALF Referring Unavailable NADERER, [facility] Primary Care Unavailabl e SHAN SONTO N Referring Unavailable NADERER, [facility] Primary Care Unavailabl e SHAN SONTO N Referring Unavailable NADERER, [facility] Primary Care Unavailabl e NAIMA ANDRES Referring SEUN Garrido Primary Care Unavailkait SIMON, SEUN Attending Unavailable NADERER, SEUN Attending Unavailable NADERER, SEUN Attending Unavailable NADERER, SEUN Attending Unavailable NADERER, SEUN Attending Unavailable NADERER, SEUN Attending Unavailable PROBLEMS DATE TYPE CONDITION / CODE ATTENDING STATUS [facility] 06/13/2024 Admitting Diagnosis Hyperlipidemia, unspecified / E78.5(ICD-10) [facility] 06/13/2024 Admitting Diagnosis Personal history of nicotine dependence / Z87.891(ICD-10) [facility] 05/23/2024 Admitting Diagnosis Body mass index (BMI) 37.0-37.9, adult / Z68.37(ICD-10) [facility] 05/23/2024 Admitting Diagnosis Abnormal electrocardiogram (ECG) (EKG) / R94.31(ICD-10) [facility] 03/27/2024 Unknown Other interverte bral disc degeneration, lumbar region with discogenic back pain only / M51.360(ICD-10) [facility]24 Unknown Sick sinus syndr ome / I49.5(ICD-10) Rubio, [facility] 12/01/2023 Admitting Diagnosis Presence of cardiac pacemaker / Z95.0(ICD-10) [facility] 07/22/2023 Admitting Diagnosis Sick sinus syndrome (Multi) / I49.5(ICD-10) NAIMA ANDRES [facility] 07/22/2023 Admitting Diagnosis Chronic diastolic (congestive) heart failure (Multi) / I50.32(ICD-10) NAIMA ANDRES [facility] 07/22/2023 Admitting Diagnosis Peripheral vascular disease, unspecified ([facility]) / I73.9(ICD-10) NAIMA ANDRES [facility] 07/22/2023 Admitting Diagnosis Obstructive sleep apnea (adult) (pediatric) / G47.33(ICD-10) NAIMA ANDRES [facility] 05/23/2023 Admitting Diagnosis Chronic obstructive pulmonary disease, unspecified (Multi) / J44.9(ICD-10) [facility] 05/23/2023 Admitting Diagnosis Other forms of dyspnea / R06.09(ICD-10) [facility] 08/10/2023 Admitting Diagnosis Localized swelling, mass and lump, left upper limb / R22.32(ICD-10) [facility] 07/22/2023 Admitting Diagnosis 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200(ICD-10) [facility] PROCEDURES DATE CODE DESCRIPTION STATUS SOURCE 09/26/2023 CUV087(C4) CARDIAC DEVICE C HECK - REMOTE Completed [facility] 08/10/2023 VAS64(C4) VASC US UPPER EX TREMITY VENOUS DUPLEX LEFT Completed [facility] RESULTS XR PRE/POST MRI XRAY Observed: 4 11:48 AM Status: COMPLETED Source: [facility] REPOSITORY [facility] [address] [address] MRI Report Signed Patient: RiversideLiliana JR MR#: [id number] : 1965 Acct:[id number] Age/Sex: 59 / M ADM Date: 03/27/24 Loc: Room: Type: [facility] Attending Dr: Danielle GAYTAN Copies to: LUKAS Burns Ordering Provider: LUKAS Burns Date of Service: 03/27/24 MR/MR lumbar spine wo con: LUMBAR DDD ([id number]) XR/XR pre/post mri xray: LUMBAR DDD MRI [...] 11:57 AM Dictation Location: RADIO-PC-22 Transcribed By: [facility] 03/27/24 1157 Dictated By: Germán Murphy Jr, DO 03/27/24 1148 Signed By: <Electronically signed by Germán Murphy Jr, DO in OV> 03/27/24 1157 XR CHEST 2V* Observed: 03/16/2024 8:49 AM Status: COMPLETED Source: [facility] REPOSITORY [facility] [place] [address] XRay Report Signed Patient: Liliana Michaels JR MR#: [id number] : 1965 Acct:[id number] Age/Sex: 59 / M ADM Date: 03/16/24 Loc: [facility] Room: Type: [facility] Attending Dr: Danielle GAYTAN Copies to: LUKAS [...] 8:54 AM Dictation Location: RADIO-PC-16 Transcribed By: [facility] 03/16/24 0854 Dictated By: Elia Rodrigez DO 03/16/24 0849 Signed By: <Electronically signed by Elia Rodrigez DO in OV> 03/16/24 0854 PACEART Observed: 01/25/2024 6:00 AM Status: F Source: [facility] REPOSITORY [facility]_DEV_MODEL W1DR01 [facility] XT DR MRI MDC_IDC_DEV_SERIAL [id number] [facility]_SESS_CLINIC_NAME [facility] Device [facility] [place] [facility]_IDC_LEAD_MODEL 5076 CapSureFix Novus MRI SureScan [facility]_IDC_LEAD_SERIAL [id number] [facility]_IDC_LEAD_LOCATION_DETAIL_1 APPENDAGE [facility]_IDC_LEAD_MODEL 5076 [employer] Novus MRI SureScan [facility]_IDC_LEAD_SERIAL [id number] [facility]_LEAD_LOCATION_DETAIL_1 SEPTUM [facility]_IDC_SET_BRADY_HYSTRATE DISABLED MDT_PROG_BRADY_PMT_INTERVENTION ENABLED MDT_PROG_BRADY_PVC_RESPONSE ENABLED MDT_PROG_BRADY_RATEMODULATION_THRESHOLD Low MDT_PROG_BRADY_RATEMODULATION_SLOPE 3 MDT_PROG_BRADY_RATEMODULATION_SLOPE_EXERTION 3 MDT_PROG_BRADY_RATEMODULATION_DECELERATIONRECOVERY Exercise MDT_PROG_BRADY_AVDELAY_ADAPTIVE_STATUS DISABLED MDT_PROG_BRADY_AUTOMATICEMODESWITCH_STATUS ENABLED MDT_PROG_BRADY_POLARITYCONFIGURATION_RA_SENSING_PATHWAY_SUMMARY RA-Tip to RA-Ring MDT_PROG_BRADY_REFRACTORYPERIOD_PREVIOUSEVENTCHAMBER_RA VENTRICLE MDT_PROG_BRADY_REFRACTORYPERIOD_INTERVAL_RA Auto MDT_PROG_BRADY_BLANKINGPERIOD_PREVIOUSEVENTCHAMBER_RA VENTRICLE MDT_PROG_BRADY_BLANKINGPERIOD_EVENTTYPE_RA SENSE_OR_PACE MDT_PROG_BRADY_BLANKINGPERIOD_PREVIOUSEVENTCHAMBER_RA RIGHT_ATRIUM MDT_PROG_BRADY_BLANKINGPERIOD_EVENTTYPE_RA PACE MDT_PROG_BRADY_BLANKINGPERIOD_PREVIOUSEVENTCHAMBER_RA RIGHT_ATRIUM MDT_PROG_BRADY_BLANKINGPERIOD_EVENTTYPE_RA SENSE MDT_PROG_BRADY_POLARITYCONFIGURATION_RV_SENSING_PATHWAY_SUMMARY RV-Tip to RV-Ring MDT_PROG_BRADY_BLANKINGPERIOD_PREVIOUSEVENTCHAMBER_RV VENTRICLE MDT_PROG_BRADY_BLANKINGPERIOD_EVENTTYPE_RV PACE MDT_PROG_BRADY_BLANKINGPERIOD_PREVIOUSEVENTCHAMBER_RV VENTRICLE MDT_PROG_BRADY_BLANKINGPERIOD_EVENTTYPE_RV SENSE MDT_PROG_BRADY_POLARITYCONFIGURATION_RA_PACING_PATHWAY_SUMMARY RA-Tip to RA-Ring MDT_PROG_BRADY_POLARITYCONFIGURATION_RV_PACING_PATHWAY_SUMMARY RV-Tip to RV-Ring [facility]_IDC_SET_ZONE_TYPE ATRIAL_FIBRILLATION MDT_PROG_TACHY_ZONE_DETECTIONS_RATESTABILITY_STATUS DISABLED MDT_PROG_TACHY_ZONE_THERAPIES_SUMMARY Monitored Monitored MDT_STAT_LEADS_LOWPOWERCHANNEL_RA_IMPEDANCES_POLE_TYPE ANODE CATHODE ANODE CATHODE MDT_STAT_LEADS_LOWPOWERCHANNEL_RA_SENSITIVITIES_POLE_TYPE ANODE CATHODE MDT_STAT_LEADS_LOWPOWERCHANNEL_RA_SENSITIVITIES_METHOD DEVICE_INITIATED MDT_STAT_LEADS_LOWPOWERCHANNEL_RA_SENSITIVITIES_POLE_TYPE ANODE CATHODE MDT_STAT_LEADS_LOWPOWERCHANNEL_RA_CAPTURES_METHOD DEVICE_INITIATED MDT_STAT_LEADS_LOWPOWERCHANNEL_RA_CAPTURES_POLE_TYPE ANODE CATHODE MDT_STAT_LEADS_LOWPOWERCHANNEL_RV_IMPEDANCES_POLE_TYPE ANODE CATHODE ANODE CATHODE MDT_STAT_LEADS_LOWPOWERCHANNEL_RV_SENSITIVITIES_POLE_TYPE ANODE CATHODE MDT_STAT_LEADS_LOWPOWERCHANNEL_RV_SENSITIVITIES_METHOD DEVICE_INITIATED MDT_STAT_LEADS_LOWPOWERCHANNEL_RV_SENSITIVITIES_POLE_TYPE ANODE CATHODE MDT_STAT_LEADS_LOWPOWERCHANNEL_RV_CAPTURES_METHOD DEVICE_INITIATED MDT_STAT_LEADS_LOWPOWERCHANNEL_RV_CAPTURES_POLE_TYPE ANODE CATHODE [facility]_MSMT_BATTERY_RRT_TRIGGER 2.625 [facility]_IDC_EPISODE_ID 1 MDT_EPISODES_EPISODE_ACTIVITYATONSET Rest MDT_EVALUATION_MISCELLANEOUSCOMMENT DUAL LEAD PACEMAKER EVALUATION: [facility] ([facility]) REMOTE FOLLOW UP\X0A\PRESENTING RHYTHM: AP-VS 60s\X0A\LEAD: SENSING AND LEAD IMPEDANCES WNL\X0A\COUNTERS SINCE: 11/09/23\X0A\ATRIAL ARRHYTHMIAS: 0 AT/AF EPISODES; 0% AT/AF BURDEN\X0A\VENTRICULAR ARRHYTHMIAS: 1 NSVT (200 BPM, 4 sec) DETECTION\X0A\Rx: FOLLOW UP IN CLINIC & REMOTELY NEEDED: NEXT SCHEDULED REMOTE IS 02-14-24.\X0A\ACIURA RN XR CHEST 2 VIEWS Observed: 11/09/2023 9:33 AM Status: F Source: [facility] REPOSITORY Order Comment: Report to [facility] registration on 11/09/2023 at 8:30 AM for chest x-ray and device check prior to appointment with Dr. Son at 10 AM Interpreted By: Shan Gross, STUDY: XR CHEST 2 VIEWS; 11/09/2023 9:46 am INDICATION: Signs/Symptoms:Pacemaker. COMPARISON: 08/05/2023 ACCESSION NUMBER(S): [id number] ORDERING CLINICIAN: BERT METCALF FINDINGS: Left-sided pacemaker in place. CARDIOMEDIASTINAL SILHOUETTE: Cardiomediastinal silhouette is normal in size and configuration. LUNGS: Lungs are clear. ABDOMEN: No remarkable upper abdominal findings. BONES: No acute osseous changes. IMPRESSION: 1. No evidence of acute cardiopulmonary process. MACRO: None Signed by: Sancho Gross 11/10/2023 8:35 AM Dictation workstation: [id number] PACEART Observed: 11/09/2023 9:14 AM Status: F Source: [facility] REPOSITORY MDC_IDC_DEV_MODEL W1DR01 [facility] XT [facility] MDC_IDC_DEV_SERIAL [id number] MDC_IDC_SESS_CLINIC_NAME [facility] Device [facility] [place] MDC_IDC_LEAD_MODEL 5076 CapSureFix Novus MRI SureScan MDC_IDC_LEAD_SERIAL [id number] MDC_IDC_LEAD_LOCATION_DETAIL_1 APPENDAGE MDC_IDC_LEAD_MODEL 5076 [employer]Sure[employer] Novus MRI SureScan MDC_IDC_LEAD_SERIAL [id number] [facility]_LEAD_LOCATION_DETAIL_1 SEPTUM MDC_IDC_SET_BRADY_HYSTRATE DISABLED MDT_PROG_BRADY_PMT_INTERVENTION ENABLED MDT_PROG_BRADY_PVC_RESPONSE ENABLED MDT_PROG_BRADY_RATEMODULATION_THRESHOLD Low MDT_PROG_BRADY_RATEMODULATION_SLOPE 3 MDT_PROG_BRADY_RATEMODULATION_SLOPE_EXERTION 3 MDT_PROG_BRADY_RATEMODULATION_DECELERATIONRECOVERY Exercise MDT_PROG_BRADY_AVDELAY_ADAPTIVE_STATUS DISABLED MDT_PROG_BRADY_AUTOMATICEMODESWITCH_STATUS ENABLED MDT_PROG_BRADY_POLARITYCONFIGURATION_RA_SENSING_PATHWAY_SUMMARY RA-Tip to RA-Ring MDT_PROG_BRADY_REFRACTORYPERIOD_PREVIOUSEVENTCHAMBER_RA VENTRICLE MDT_PROG_BRADY_REFRACTORYPERIOD_INTERVAL_RA Auto MDT_PROG_BRADY_BLANKINGPERIOD_PREVIOUSEVENTCHAMBER_RA VENTRICLE MDT_PROG_BRADY_BLANKINGPERIOD_EVENTTYPE_RA SENSE_OR_PACE MDT_PROG_BRADY_BLANKINGPERIOD_PREVIOUSEVENTCHAMBER_RA RIGHT_ATRIUM MDT_PROG_BRADY_BLANKINGPERIOD_EVENTTYPE_RA PACE MDT_PROG_BRADY_BLANKINGPERIOD_PREVIOUSEVENTCHAMBER_RA RIGHT_ATRIUM MDT_PROG_BRADY_BLANKINGPERIOD_EVENTTYPE_RA SENSE MDT_PROG_BRADY_POLARITYCONFIGURATION_RV_SENSING_PATHWAY_SUMMARY RV-Tip to RV-Ring MDT_PROG_BRADY_BLANKINGPERIOD_PREVIOUSEVENTCHAMBER_RV VENTRICLE MDT_PROG_BRADY_BLANKINGPERIOD_EVENTTYPE_RV PACE MDT_PROG_BRADY_BLANKINGPERIOD_PREVIOUSEVENTCHAMBER_RV VENTRICLE MDT_PROG_BRADY_BLANKINGPERIOD_EVENTTYPE_RV SENSE MDT_PROG_BRADY_POLARITYCONFIGURATION_RA_PACING_PATHWAY_SUMMARY RA-Tip to RA-Ring MDT_PROG_BRADY_POLARITYCONFIGURATION_RV_PACING_PATHWAY_SUMMARY RV-Tip to RV-Ring MDC_IDC_SET_ZONE_TYPE ATRIAL_FIBRILLATION MDT_PROG_TACHY_ZONE_DETECTIONS_RATESTABILITY_STATUS DISABLED MDT_PROG_TACHY_ZONE_THERAPIES_SUMMARY Monitored Monitored MDT_STAT_LEADS_LOWPOWERCHANNEL_RA_IMPEDANCES_POLE_TYPE ANODE CATHODE ANODE CATHODE MDT_STAT_LEADS_LOWPOWERCHANNEL_RA_CAPTURES_METHOD DEVICE_INITIATED MDT_STAT_LEADS_LOWPOWERCHANNEL_RA_CAPTURES_POLE_TYPE ANODE CATHODE MDT_STAT_LEADS_LOWPOWERCHANNEL_RV_IMPEDANCES_POLE_TYPE ANODE CATHODE ANODE CATHODE MDT_STAT_LEADS_LOWPOWERCHANNEL_RV_SENSITIVITIES_POLE_TYPE ANODE CATHODE MDT_STAT_LEADS_LOWPOWERCHANNEL_RV_CAPTURES_METHOD DEVICE_INITIATED MDT_STAT_LEADS_LOWPOWERCHANNEL_RV_CAPTURES_POLE_TYPE ANODE CATHODE MDC_IDC_MSMT_BATTERY_RRT_TRIGGER 2.625 MDT_EVALUATION_DEPENDENCY YES MDT_EVALUATION_RHYTHM AP-VS-NO P>40 BPM MDT_EVALUATION_MISCELLANEOUSCOMMENT DUAL LEAD PACEMAKER EVALUATION: IN CLINIC FOLLOW UP; OV WITH NOH TODAY.\X0A\ALERT: NONE\X0A\IMPLANT SITE: IMPLANT SITE HEALED WITH NO S/S OF INFECTION OR EROSION\X0A\PRESENTING RHYTHM: AP-VS 70s\X0A\LEAD: SENSING, CAPTURE THRESHOLDS, & LEAD IMPEDANCES WNL\X0A\COUNTERS SINCE: 08/05/23\X0A\ATRIAL ARRHYTHMIAS: 0 AT/AF EPISODES; 0% AT/AF BURDEN\X0A\VENTRICULAR ARRHYTHMIAS: 0 VENT DETECTIONS\X0A\Rx FOLLOW UP IN CLINIC & REMOTELY NEEDED: NEXT SCHEDULED REMOTE IS 02-14-24.\X0A\CAMILO CASTRO [facility] US UPPER EXTREMITY VENOUS DUPLEX LEFT Observed: 08/10/2023 2:09 PM Status: F Source: [facility] REPOSITORY Interpreted By: Maciej Ramos , STUDY: [facility] US UPPER EXTREMITY VENOUS DUPLEX LEFT; 08/10/2023 2:47 pm INDICATION: Signs/Symptoms: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 COMPARISON: Portable chest 05 August 2023 ACCESSION NUMBER(S): [id number] ORDERING CLINICIAN: NAIMA ANDRES TECHNIQUE: Vascular ultrasound of the left upper [...] left upper extremity MACRO: None Signed by: Maciej Ramos 08/10/2023 3:07 PM Dictation workstation: [id number] ALLERGIES DATE TYPE / CODE NAME / CODE REACTION SEVERITY SOURCE 07/06/2019 Drug Allergy/8005349 02(SNOMED CT) No Known Allergies/[id number] (RXNORM) Unknown [facility] SYSTEMIC/325295 006(SNOMED CT) NO KNOWN ALLERGIES [facility] Ambulatory ENCOUNTERS ADMIT/DISCHARGE ACCOUNT NUMBER ADMITTING ENCOUNTER CLASS LOCATION SOURCE 07/23/2024/07/24/19 [id number] Ambulatory Building:[facility] 06/13/2024/06/13/19 [id number] Ambulatory Building: [id number] [facility] 06/06/2024/06/06/19 [id number] Ambulatory Building:[facility] 05/23/2024/05/23/19 [id number] Ambulatory Building:DOG [id number] [facility] 05/23/2024/05/23/19 [id number] Ambulatory Building:CORY NIC1 [facility] 04/24/2024/04/24/20 [id number] Ambulatory Building:[facility] 04/16/2024/04/16/20 [id number] Ambulatory PM BellJuan ding[facility]/27/2024/03/27/20 24 [id number] [facility] 03/16/2024/03/16/20 24 [id number] [facility] 02/14/2024/02/14/20 24 [id number] Ambulatory Building:[address] 02/06/2024/02/06/20 24 [id number] Ambulatory Building:[facility] 01/25/2024/01/25/20 24 [id number] Ambulatory Building:[address] 01/13/2024/01/13/20 24 [id number] Ambulatory Building:[facility] 12/01/2023/12/01/19 24 [id number] Ambulatory Building: [id number] 11/09/2023/11/09/19 24 [id number] Ambulatory Building:DOG [id number] 11/09/2023/11/09/19 24 [id number] Ambulatory Building:[facility] 11/09/2023/11/09/19 24 [id number] Ambulatory Building:[address] 10/10/2023/10/10/19 24 [id number] Ambulatory Building:[facility] 09/26/2023/09/26/19 24 [id number] Ambulatory Building:[address] 08/12/2023/08/12/19 24 [id number] Ambulatory Building:DOG [id number] Ambulatory 08/10/2023/08/10/19 24 [id number] Ambulatory Building:[facility] 08/10/2023/08/10/19 24 [id number] Ambulatory Building:DOG [id number] Ambulatory PAYERS ENCOUNTER GUARANTOR PAYER SUBSCRIBER SOURCE 07/23/2024 LILIANA MICHAELS JRDOB: [id number] [place] [address]Teu: (TL) Primary Insurance:[facility] MEDICARE ADVANTAGEPolicy Number: [id number] Date:2023-05-28 LILIANA MICHAELS JRDOB: [id number] [place] [address] [facility] EPIC 06/13/2024 LILIANA MICHAELS JR.: [place], [place] [address]Mfd: (HP) Primary Insurance:HUMAN MEDICAREPolicy Number: [id number] Date:2023-06-09 LILIANA MICHAELS JR.: [id number] [place], [place] [address]Eiz: (HP) [facility] 06/06/2024 LILIANA MICHAELS JRDOB: [place] [address]Lsx: (HP) Primary Insurance:HUMAN MEDICARE ADVANTAGEPolicy Number: [id number] Date:2023-05-28 LILIANA MICHAELS JRDOB: [id number] [place] [address] [facility] EPIC 05/23/2024 LILIANA MICHAELS JR.: [place], [place] [address]Gqh: (HP) Primary Insurance:HUMANA MEDICAREPolicy Number: [id number] Date:2023-06-09 LILIANA MICHAELS JR.: [id number] [place], [place] [address]Jmw: (HP) [facility] 05/23/2024 LILIANA MICHAELS JR.: [place], [place] [address]Jfh: (HP) Primary Insurance:HUMANA MEDICAREPolicy Number: [id number] Date:2023-06-09 LILIANA MICHAELS JR.: [id number] [place], [place] [address]Nzm: (HP) [facility] 04/24/2024 LILIANA Cem BRANDO BOWERB: [place] [address]Lbk: (HP) Primary Insurance:HUMANA MEDICARE ADVANTAGEPolicy Number: [id number] Date:2023-05-28 LILIANA Cem BRANDO BOWERB: [id number] [place] [address] [facility] 04/16/2024 Liliana FarahB: [place] [address] Primary Insurance:HumanaPolicy Number: Effective Date:6341-20-20Aobj Name:COMP Jayde [address] [address]QH: Liliana FarahB: [id number] [place] [address] [facility] 03/27/2024 Liliana Michaels JR[address] [place] [id number]: (HP) Primary Insurance:Humana Gold Plus HMOPolicy Number: [id number] Date:[id number] [place] [id number]: Liliana Cem Brando BOWERB: [id number] [place] [address]Uxq: (HP) [facility] 03/27/2024 Secondary Insurance:Self PayPolicy Number: Effective Date:2024-03-20 [facility]24 Liliana Michaels [address] [place] [address]Apt: (HP) Primary Insurance:Hum[employer] Gold Plus HMOPolicy Number: [id number] Date:[id number] [address]ST: Liliana BOWERB: [id number] [place] [address]Irj: (HP) [facility] 03/16/2024 Secondary Insurance:Self PayPolicy Number: Effective Date:2024-03-14 [facility] 02/14/2024 LILIANA MICHAELS JR.: [place], [place] [address]Rub: (HP) Primary Insurance:HUMANA MEDICAREPolicy Number: [id number] Date:2023-06-09 LILIANA MICHAELS JR.: [id number] [place], [place] [address]Zpa: (HP) [facility] 02/06/2024 LILIANA MICHAELS JRDOB: [place] [address]Mqa: (HP) Primary Insurance:HUMANA MEDICARE ADVANTAGEPolicy Number: [id number] Date:2023-05-28 LILIANA BOWERB: [id number] [place] [id number] [facility] 01/25/2024 LILIANA MICHAELS JR.: [place], [place] [address]Ddo: (HP) Primary Insurance:HUMANA MEDICAREPolicy Number: [id number] Date:2023-06-09 LILIANA MICHAELS JR.: [id number] [place], [place] [address]Jbl: (HP) [facility] 01/13/2024 LILIANA BOWERB: [place] [address]Eof: (HP) Primary Insurance:HUMANA MEDICARE ADVANTAGEPolicy Number: [id number] Date:2023-05-28 LILIANA BOWERB: [id number] [place] [address] [facility] 12/01/2023 LILIANA MICHAELS JR[address] [place], [place] [address]Aic: (HP) Primary Insurance:HUMANA MEDICAREPolicy Number: [id number] Date:2023-06-09 LILIANA MICHAELS JR.: [id number] [place], [place] [address]Ivq: (HP) [facility] 11/09/2023 LILIANA MICHAELS JR.: [place], [place] [address]Bsm: (HP) Primary Insurance:HUMANA MEDICAREPolicy Number: [id number] Date:2023-06-09 LILIANA MICHAELS JR.: [id number] [place], [place] [address]Fso: (HP) [facility] 11/09/2023 LILIANA MICHAELS JR.: [place], [place] [address]Ubo: () Primary Insurance:HUMANA MEDICAREPolicy Number: [id number] Date:2023-06-09 LILIANA MICHAELS JR.: [id number] [place], [place] [address]Uls: (HP) [facility] 11/09/2023 LILIANA MICHAELS JR.: [place], [place] [address]Lzl: () Primary Insurance:HUMANA MEDICAREPolicy Number: [id number] Date:2023-06-09 LILIANA MICHAELS JR.: [id number] [place], [place] [address]Olg: (HP) [facility] 10/10/2023 LILIANA MICHAELS JRDOB: [place] [address]Fju: (HP) Primary Insurance:HUMANA MEDICARE ADVANTAGEPolicy Number: [id number] Date:2023-05-28 LILIANA MICHAELS JRDOB: [id number] [place] [address] [facility] 09/26/2023 LILIANA MICHAELS JR.: [place], [place] [address]Sob: (HP) Primary Insurance:HUMANA MEDICAREPolicy Number: [id number] Date:2023-06-09 LILIANA MICHAELS JR.: [id number] [place], [place] [address]Flr: (HP) [facility] 08/12/2023 LILIANA MICHAELS JR.: [place], [place] [address]Uuu: (HP) Primary Insurance:HUMANA MEDICAREPolicy Number: [id number] Date:2023-06-09 LILIANA MICHAELS JR.: [id number] [place], [place] [address]Wqp: (HP) [facility] 08/10/2023 LILIANA MICHAELS JR.: [place], [place] [address]Gjf: (HP) Primary Insurance:HUMANA MEDICAREPolicy Number: [id number] Date:2023-06-09 LILIANA MICHAELS JR.: [id number] [place], [place] [address]Bny: (HP) [facility] 08/10/2023 LILIANA MICHAELS JR.: [place], [place] [address]Xxv: () Primary Insurance:HUMANA MEDICAREPolicy Number: [id number] Date:2023-06-09 LILIANA MICHAELS JR.: [id number] [place], [place] [address]Oih: () [facility]
== END 2024-08-09 07:56 | disposition home or self-care (01) ==
LOC: CT 07:55
PROVIDERS: PCP Family Medicine; Visit Provider Internal Medicine
DX: F17.219 Nicotine dependence, cigarettes, with unspecified nicotine-induced disorders (principal); Z12.2 Encounter for screening for malignant neoplasm of respiratory organs
CPT/HCPCS: 71271

== ENCOUNTER 2024-08-30 12:46 | Outpatient (OUT) | payer MEDICARE, SELFPAY ==
--- NOTE | 2024-08-30 13:13 | PM.CN ---
Consult Note: HPI Data of Consult Patient: known to practice within the last 3 years Requesting Physician: Danielle Bergeron NP Primary Care Provider: Ishmael Watts MD Consult Narrative Reason for consult: low back and BLE pain Narrative: Abhishek Mayen a 59 year old male with longstanding hx of back pain presents for evaluation. Pt has a hx of multilevel stenosis, lumbar spondylosis, and DDD which has not responded well to interventional therapy including RFAs and ESIs. Pt has failed provider guided HEP for 6 weeks, heat, ice, tylenol, and NSAIDs. currently utilizes baclofen 10mg BID PRN, percocet 7.5mg Q6hrs prn, lyrica 100mg BID and aleve prn with mild relief. Pain today 2-3/10 tight aching sharp pain increasing to 10/10 with standing, walking, twisting, and activity. pain improves with sitting and forward flexion. denies falls or injury. no recent NS consultation as patient absolutely does not want back surgery. cc:: CC: Danielle Bergeron NP Review of Systems ROS Status of ROS 10 or more systems reviewed and unremarkable except as noted in history and below [facility] Medical History COPD exacerbation ?J44.1 - Chronic obstructive pulmonary disease with (acute) exacerbation (ICD-10) Lumbar degenerative disc disease ?M51.369 - Other intervertebral disc degeneration, lumbar region without mention of lumbar back pain or lower extremity pain (ICD-10) Right shoulder pain ?M25.511 - Pain in right shoulder (ICD-10) Obesity ?E66.9 - Obesity, unspecified (ICD-10) Kidney failure ?N19 - Unspecified kidney failure (ICD-10) Smoker ?F17.200 - Nicotine dependence, unspecified, uncomplicated (ICD-10) COPD (chronic obstructive pulmonary disease) ?J44.9 - Chronic obstructive pulmonary disease, unspecified (ICD-10) Hypertension ?I10 - Essential (primary) hypertension (ICD-10) Surgical History H/O hernia repair ?Z98.890 - Other specified postprocedural states (ICD-10) ?Z87.19 - Personal history of other diseases of the digestive system (ICD-10) History of removal of cyst ?Z98.890 - Other specified postprocedural states (ICD-10) H/O elbow surgery ?Z98.890 - Other specified postprocedural states (ICD-10) S/P bladder repair ?Z98.890 - Other specified postprocedural states (ICD-10) S/P total hip arthroplasty ?Z96.649 - Presence of unspecified artificial hip joint (ICD-10) S/P cardiac pacemaker procedure ?Z95.0 - Presence of cardiac pacemaker (ICD-10) Family History Mother Family history of cancer Family history of COPD (chronic obstructive pulmonary disease) Social History Within the past year, how often did you have a drink containing alcohol: never Score interpretation: A score less than 4 is consistent with normal alcohol consumption. Smoking status: Current every day smoker Non-prescribed substance use: cannabis (any form) Highest level of school completed/degree received: high school graduate Little interest or pleasure in doing things: not at all Feeling down, depressed, or hopeless: not at all Meds Home Medications and Allergies Home Medications ?Medication ?Instructions ?Recorded ?Confirmed ?Type albuterol 90 mcg/actuation aerosol 90 mcg inhalation .Q6HRS PRN 10/14/22 07/30/24 History inhaler shortness of breath or wheezing baclofen 10 mg tablet 10 mg PO BID 10/14/22 07/30/24 History fluticasone fur. 100 mcg-umeclid 1 inh inhalation DAILY 10/14/22 07/30/24 History 62.5 mcg-vilant 25 mcg inhalat.powder (Trelegy Ellipta) furosemide 40 mg tablet 40 mg PO BID 10/14/22 07/30/24 History montelukast 10 mg tablet 10 mg PO DAILY 10/14/22 07/30/24 History nabumetone 500 mg tablet 500 mg PO BID 10/14/22 07/30/24 History omeprazole 40 mg capsule,delayed 40 mg PO DAILY 10/14/22 07/30/24 History release oxycodone-acetaminophen 7.5 mg-325 1 tab PO Q6H 10/14/22 07/30/24 History mg tablet spironolactone 100 mg tablet 100 mg PO DAILY 10/14/22 07/30/24 History cetirizine 10 mg tablet (24Hour 10 mg PO DAILY PRN allergy symptoms 04/16/24 07/30/24 History Allergy) pregabalin 100 mg capsule mg 07/10/24 History baclofen 10 mg tablet See Rx Instructions .Route 07/12/24 07/30/24 Rx .COMPLEX PRN muscle spasm #60 tabs cephalexin 500 mg capsule 500 mg PO Q8H 5 days #15 caps 07/30/24 Rx Allergies Allergy/AdvReac Type Severity Reaction Status Date / Time No Known Drug Allergies Allergy Verified 07/30/24 14:08 Exam Constitutional Documenting provider has reviewed patient's vital signs: yes Common normals: no apparent distress, oriented x3, healthy appearing, alert and well nourished General appearance: cooperative HENMT Common normals: normocephalic, hearing grossly normal bilaterally and moist oral mucous membranes Head and scalp: normocephalic Eye Common normals: PERRL Pupil: PERRL Neck & C-Spine Common normals: full ROM General: normal visual inspection Chest Common normals: inspection of chest normal Respiratory Common normals: normal respiratory effort, no retractions and no use of accessory muscles Back & Pelvis Lumbar spine/lower back: ROM limited, pain with ROM and lumbar spinal tenderness Other: decreased sensation to bilateral L3,4,5 strength 4/5 in BLE severe pain with standing and walking, cannot walk more than 15 feet without pain and weakness Neuro Common normals: oriented x3 Sensorium/orientation: alert Psych Common normals: mental status grossly normal, thought process normal, cooperative, affect normal, speech normal and activity/motor behavior normal Speech: normal speech Thought process: normal thought process Results Additional Findings Additional findings: If on a controlled substance or opioids, I have checked an [place]AR[place] report on this patient and there are no aberrancies noted in the prescribing history.??If on a controlled substance or opioid a drug screen was completed and reviewed within the last year, and if there has not been a drug screen completed we ordered one today to monitor higher risk, state monitored pain medication use. As part of providing excellent, safe, comprehensive care, the following was completed at our patient's visit: 1. A medication reconciliation and review to ensure accurate knowledge of current/active medications, including asking our patients to inform us about any [id number] medications or herbal remedies/nutritional supplements/alternative remedies. 2. A review to specifically ensure our patients have had annual screening for screening for depression, screening for tobacco use, and screening for unhealthy alcohol use. For concerning screenings had a discussion with the patient, provided patient education, and recommended follow-up with primary care provider when appropriate. If patient noted with a risk of falling, they received education on strength, gait, and balance training to prevent future risk of falling. Portions of this note may have been carried over from the previous visit and updated as appropriate. Please note this office utilizes paper charting in addition to the electronic medical record. A list of current medications, vitals, and PMH is available there as the clinical staff outside of myself do not have access to [employer] charting during the clinic day operations. As part of providing quality comprehensive care the current medications, vitals, and PMH were reviewed in the paper chart. Assessment and Plan Assessment and Plan (1) Lumbar stenosis with neurogenic claudication: Assessment and Plan: The patient has had over 3 months of moderate to severe pain with functional impairment and inadequate response to conservative care including NSAIDS (unless there are contraindication such as concurrent blood thinners), multiple oral or topical pain medications, and home exercise program/physical therapy.? Patient has completed >6 weeks of guided home exercise program and/or formal physical therapy program without relief of their symptoms.? I have reviewed the imaging of the lumbar spine and no red flags were identified.? The imaging reveals radiographic findings consistent with lumbar stenosis with NC The Oswestry Disability Index was completed, and the patient scored a 12%.? The patient noted the following:?? moderate to severe pain impacting walking We discussed the risks and benefits of the procedure with the patient, and we are planning on using MAC sedation ?The procedure will be completed with fluoroscopic guidance.? Plan 59 year old male with chronic low back pain and BLE pain/weakness secondary to lumbar stenosis with NC. pt has failed above listed therapies and medications. pt is interested in L3-4 L4-5 vertiflex procedure as recommended by Dr Reyes. risks vs benefits reviewed. continue current medications. f/u 1-2 weeks after surgery to assess surgical site.
== END 2024-08-30 12:47 | disposition home or self-care (01) ==
LOC: PM 12:46
PROVIDERS: PCP Family Medicine; Visit Provider Nurse Practitioner
DX: M48.062 Spinal stenosis, lumbar region with neurogenic claudication (principal)
CPT/HCPCS: G0463

== ENCOUNTER 2024-10-23 10:30 | Outpatient (OUT) | payer MEDICARE, SELFPAY ==
--- OUTSIDE RECORDS SUMMARY | 2024-10-23 09:15 | XMS_ITS | Encounter Summary ---
Author Organization [facility] Address [address] [place] [address] Care Team Providers Care Brick Pitcher Name Role Phone Ishmael Watts MD Primary Care Provider [phone] Reason for Visit * Reason Comments Follow-up 3M Leg Injury SORE ON RIGHT LEG Encounter Details Date Type Department Care Team (Late st Contact Info) Description 10/23/2024 9:15 AM EDT [facility] [address] [place] [address] Ishmael Watts MD [address] [place] [address] Type 2 diabetes mellitus with hyperglycemia, without [...] (BMI) of 39.0 to 39.9 in adult ([facility]); Encounter for long-term (current) use of medications; [...] often do you attend chur ch or amish services? Patient declined 10/09/2023 Do you belong to any clubs o r organizations such as baptism groups, unions, fraternal or athletic groups, or [...] Recorded Patient Health Questionnaire-2 Score 0 [facility] Answer Date Recorded [...] place to sleep or slept in a half-way (including now)? No 10/09/2023 Sex and Gender [...] (BMI) of 39.0 to 39.9 in adult ([facility]) Weight loss indicated. * Ishmael Watts MD [...] index (BMI) of39.0 to 39.9 in adult ([facility]) Weight loss indicated. Relevant Orders TSH Primary osteoarthritis of right hip Pain stable and use percocet PRN. Continue home PT exercises. documented in this encounter Plan of Treatment Upcoming Encounters Date Type Department Care Team (Late st Contact Info) Description 12/24/2024 8:30 AM EDT Office Visit [facility] [address] [place] [address] Ishmael Watts MD [address] [place] [address] Scheduled Orders Name Type Priority Associated Diagnoses [...] (BMI) of 39.0 to 39.9 in adult ([facility]) Expected: 10/23/2024 (Approximate), Expires: 10/23/2025 documented as [...] (BMI) of 39.0 to 39.9 in adult ([facility]) Encounter for long-term (current) use of medications Encounter for long-term (current) use of other medications Screening PSA (prostate specific antigen) Special screening for malignant neoplasm of prostate Vitamin D insufficiency Dyslipidemia Other and unspecified hyperlipidemia documented in this encounter Additional Health Concerns Assessment Noted Time PHQ-9 Depression Total Score: 4 04/24/20 24 11:00 AM EST documented as of this encounter Care Teams Brick Pitcher Relationship Specialty Start Date End Date Ishmael Watts MD [address] [place] [address] PCP - General Family Medicine 10/10/23 documented as of this encounter
--- OUTSIDE RECORDS SUMMARY | 2024-10-23 10:35 | XMS_ITS | Clinical Summary ---
Author Organization [facility] Address [address] [place] [address] Care Team Providers Care Food And Beverage Assistant Manager Name Role Phone Ishmael Watts MD Primary Care Provider [phone] Allergies No known active allergies Medications montelukast (Singulair) 10 MG tablet Take 1 tablet by mouth at bedtime Active Fluticasone-Umecl idin-Vilant (Trelegy Ellipta) 100-62.5-25 MCG/ACT aerosol powder Inhale 1 Dose in the morning. Active baclofen (Lioresal) 10 MG tablet TAKE 1/2 TO 1 TABLET BY MOUTH TWICE A DAY 01/28/20 23 Active aspirin 81 MG EC tablet Take 81 mg by mouth in the morning. 12/01/19 24 025 Active spironolactone (Aldactone) 100 MG tabletIndications :Essential hypertension, benign TAKE 1 TABLET BY MOUTH EVERY DAY 90 tablet 5 04/09/20 24 Active omeprazole (PriLOSEC) [address] capsuleIndication s:Alcoholic gastritis without bleeding,Alcoholi c gastritis TAKE 1 CAPSULE BY MOUTH EVERY DAY 90 capsule 1 06/04/19 25 Active albuterol HFA 90 mcg/act inhalerIndication s:Chronic obstructive pulmonary disease with acute exacerbation (HCC) Inhale 2 puffs every 4 (four) hours if needed for wheezing 18 g 3 06/06/19 25 Active furosemide (Lasix) 40 MG tabletIndications :Chronic diastolic heart failure (HCC) TAKE 1 TABLET (40 MG) BY MOUTH IN THE MORNING AND AT BEDTIME 180 tablet 3 06/18/19 25 Active rosuvastatin (Crestor) 10 MG tablet Take 10 mg by mouth in the morning. 06/13/19 25 026 Active cephalexin (Keflex) 500 MG capsule 07/31/19 25 Active nabumetone (Relafen) 500 MG tabletIndications :Carpal tunnel syndrome, bilateral upper limbs,Carpal tunnel syndrome TAKE 1 TABLET BY MOUTH TWICE A DAY 180 tablet 3 08/30/19 25 Active cetirizine (ZyrTEC) 10 MG tabletIndications :Allergic rhinitis due to pollen TAKE 1 TABLET BY MOUTH EVERY DAY 90 tablet 3 09/06/19 25 Active oxyCODONE-acetami nophen (Percocet) 7.5-325 MG tabletIndications :Degeneration of lumbar intervertebral disc Take 1 tablet by mouth 4 (four) times a day as needed for severe pain or moderate pain 120 tablet 10/19/19 25 025 Active topiramate (Topamax) 25 MG tabletIndications :Degeneration of intervertebral disc of lumbar region with discogenic back pain and lower extremity pain Take 1 tablet (25 mg) by mouth in the morning and 1 tablet (25 mg) before bedtime. 60 tablet 5 10/24/19 25 Active pregabalin (Lyrica) 100 MG capsule Take 100 mg by mouth in the morning and 100 mg before bedtime. 06/26/19 25 025 Discontinued oxyCODONE-acetami nophen (Percocet) 7.5-325 MG tabletIndications :Degeneration of lumbar intervertebral disc Take 1 tablet by mouth 4 (four) times a day as needed for severe pain or moderate pain 120 tablet 09/20/19 25 025 Discontinued(R eorder) Active Problems Problem Noted Date Diagnosed Date Type 2 diabetes mellitus wit h diabetic peripheral angiopathy without gangrene 10/23/2024 Overview (10/23/2024): Noted by ALFRED Rae MD last documented on [id number] Mild coronary artery disease 06/13/2024 Medicare annual wellness visit, subsequent 04/24 Assessment & Plan (04/24/2024 11:38 AM EST): Due for labs. Discussed proper diet and regular aerobic exercise. Need aerobic exercise 5-6 days a week for 30 minutes at a time. Smaller portions and limit total calories. Colonoscopy every 10 years. Tetanus every 10 years. Advised not to smoke. Discussed daily Aspirin therapy. Chronic pain of both shoulders 10/10/2023 Assessment & Plan (10/10/2023 9:06 AM EDT): Recent pain and likely arthritis. Start PT and check x-ray. Essential hypertension, benign 04/13/2023 Assessment & Plan (10/23/2024 10:05 AM EDT): BP controlled and monitor PRN. Assessment & Plan (07/23/2024 10:53 AM EDT): BP controlled and monitor PRN. Assessment & Plan (06/06/2024 10:12 AM EST): BP controlled and monitor PRN. Assessment & Plan (04/24/2024 11:38 AM EST): BP controlled and monitor PRN. Assessment & Plan (01/13/2024 10:05 AM EDT): BP controlled and monitor PRN. Assessment & Plan (10/10/2023 9:06 AM EDT): BP controlled and monitor PRN. Assessment & Plan (04/13/2023 7:46 AM EST): BP controlled and monitor PRN. Enlarged prostate with urinary obstruction 04/13 Gastritis, alcoholic 04/13/2023 Chronic diastolic heart failure 04/13/2023 Assessment & Plan (10/23/2024 10:04 AM EDT): Edema worse with higher dose lyrica and improved after stopping. Continue lasix. Assessment & Plan (07/23/2024 10:52 AM EDT): Occasional edema and use lasix PRN. Elevate legs PRN. Assessment & Plan (01/13/2024 10:04 AM EDT): Occasional edema and use lasix PRN. Elevate legs PRN. Assessment & Plan (10/10/2023 9:05 AM EDT): Occasional edema and use lasix PRN. Elevate legs PRN. Assessment & Plan (04/13/2023 7:44 AM EST): Occasional edema and use lasix PRN. Elevate legs PRN. Chronic obstructive pulmonary disease 04/13/2023 Assessment & Plan (10/23/2024 10:04 AM EDT): Symptoms stable and continue trelegy. Use albuterol PRN. Follow up with pulmonology. Assessment & Plan (07/23/2024 10:52 AM EDT): Increased symptoms and treat with levaquin and prednisone. Use albuterol PRN. Assessment & Plan (06/06/2024 10:11 AM EST): Recent exacerbation but improved. Complete prednisone as directed. Use albuterol PRN. Assessment & Plan (01/13/2024 10:04 AM EDT): Symptoms worse and treat with prednisone. Continue trelegy and use albuterol PRN. Assessment & Plan (10/10/2023 9:05 AM EDT): Breathing stable and follow up with pulmonology. DDD (degenerative disc disease), lumbar 04/13/20 23 Assessment & Plan (10/23/2024 10:05 AM EDT): Pain unchanged and appears to have worsening radicular symptoms. Stopped lyrica due to side effects and in past did not tolerate zonegran. Try topamax. Assessment & Plan (07/23/2024 10:53 AM EDT): Pain stable and follow with pain management for procedures. Assessment & Plan (01/13/2024 10:05 AM EDT): Pain worse and follow with pain management for ablation. Assessment & Plan (10/10/2023 9:06 AM EDT): Pain stable and use percocet PRN. Continue home PT exercises. Assessment & Plan (04/13/2023 7:46 AM EST): Pain stable and use percocet PRN. Continue home PT exercises. Dyslipidemia 04/13/2023 Impotence of organic origin 04/13/2023 Nasal polyp 04/13/2023 Obstructive sleep apnea (adult) (pediatric) 10/2022 Plaque psoriasis 04/13/2023 Peripheral vascular disease, unspecified 023 Assessment & Plan (07/23/2024 10:53 AM EDT): No symptoms and increase ambulation. Bradycardia, sinus 04/13/2023 Type 2 diabetes mellitus wit h hyperglycemia, without long-term current use of insulin 04/13/2023 Assessment & Plan (10/23/2024 10:05 AM EDT): Not checking BS and due for A1C. Stick to ADA diet and limit carbs. Assessment & Plan (07/23/2024 10:54 AM EDT): Not checking BS but A1C controlled. Stick to ADA diet and limit carbs. Assessment & Plan (04/24/2024 11:38 AM EST): Not checking BS and due for A1C. Add ozempic. Assessment & Plan (01/13/2024 10:05 AM EDT): Not checking BS and A1C 5.8. Stick to ADA diet and limit carbs. Assessment & Plan (10/10/2023 9:07 AM EDT): Reports BS controlled and due for A1C. Stick to ADA diet and limit carbs. Assessment & Plan (04/13/2023 7:47 AM EST): Not checking BS and due for A1C. Stick to ADA diet and limit carbs. Ulnar neuropathy of left upper extremity 023 Vitamin D insufficiency 04/13/2023 Carpal tunnel syndrome of left wrist 04/13/2023 Encounter for long-term (current) use of medicat ions 04/13/2023 Screening PSA (prostate specific antigen) 2022 Class 2 severe obesity due t o excess calories with serious comorbidity and body mass index (BMI) of 39.0 to 39.9 in adult 04/13/2023 Assessment & Plan (10/23/2024 10:04 AM EDT): Weight loss indicated. Assessment & Plan (07/23/2024 10:53 AM EDT): Weight loss indicated. Assessment & Plan (06/06/2024 10:12 AM EST): Weight loss indicated. Assessment & Plan (04/24/2024 11:38 AM EST): Weight up 28 pounds in past year. Add ozempic. Primary osteoarthritis of right hip 04/13/2023 Assessment & Plan (10/23/2024 10:05 AM EDT): Pain stable and use percocet PRN. Continue home PT exercises. Assessment & Plan (07/23/2024 10:53 AM EDT): Pain stable and use percocet PRN. Continue home PT exercises. Assessment & Plan (01/13/2024 10:05 AM EDT): Pain stable and use percocet PRN. Continue home PT exercises. Assessment & Plan (10/10/2023 9:06 AM EDT): Pain stable and use percocet PRN. Continue home PT exercises. Assessment & Plan (04/13/2023 7:46 AM EST): Pain stable and use percocet PRN. Continue home PT exercises. Resolved Problems Problem Noted Date Diagnosed Date Resolved Date Dysuria 02/06/2024 10/23/2024 Assessment & Plan (02/06/2024 1:30 PM EDT): History suggestive UTI and treat. Take cipro for infection. Send urine for culture. Increase water intake and cranberry juice. Use motrin or tylenol for discomfort. Prostatitis 02/06/2024 07/23/2024 Assessment & Plan (02/06/2024 1:30 PM EDT): Pain with urination and in testicles. Treat with cipro. Pyuria 02/06/2024 07/23/2024 Chronic hypoxic respiratory failure 04/13/2023 10/23/2024 Assessment & Plan (06/06/2024 10:11 AM EST): Normal SpO2 on room air and continue nocturnal O2. Encounters Date Type Department Care Team Description 10/23/2024 9:15 AM EDT Office Visit [facility] [address] [place] [address] Ishmael Watts MD Type 2 diabetes mellitus with hyperglycemia, without [...] (BMI) of 39.0 to 39.9 in adult ([facility]); Encounter for long-term (current) use of medications; Screening PSA (prostate specific antigen); Vitamin D insufficiency; Dyslipidemia 10/23/[address] [facility] [address] [place] [phone] Ishmael Watts MD 10/18/[address] [facility] [address] [place] [address] Ishmael Watts MD Degeneration of lumbar intervertebral disc 09/19/[address] [facility] [address] [place] [address] Ishmael Watts MD Degeneration of lumbar intervertebral disc 09/05/[address] [facility] [address] [place] [address] Ishmael Watts MD Allergic rhinitis due to pollen 08/29/[address] [facility] [address] [place] [address] Ishmael Watts MD Carpal tunnel syndrome, bilateral upper limbs; Carpal tunnel syndrome 08/22/[address] [facility] [address] [place] [address] Ishmael Watts MD Degeneration of lumbar intervertebral disc 08/09/2024 Clinisync Result Encounter [facility] External Department Unsolicited Provider, [facility] External Data 08/01/2024 Patient Outreach [address] [place] [address] Andi Warren MA 07/25/2024 Clinisync Result Encounter [facility] External Department Unsolicited Ishmael Watts MD 07/23/2024 10:15 AM EDT Office Visit [facility] [address] [place] [address] Ishmael Watts MD Type 2 diabetes mellitus with hyperglycemia, without long-term current use of insulin (HCC) (Primary Dx); Essential hypertension, benign ; Chronic diastolic heart failure (HCC); Primary osteoarthritis of right hip; Degeneration of intervertebral disc of lumbar region with discogenic back pain; Chronic obstructive pulmonary disease with acute exacerbation (HCC); Peripheral vascular disease, unspecified; Class 2 severe obesity due to excess calories with serious comorbidity and body mass index (BMI) of 38.0 to 38.9 in adult ([facility]); Type 2 diabetes mellitus with other specified complication (HCC); Male erectile dysfunction, unspecified; Type 2 diabetes mellitus with diabetic peripheral angiopathy without gangrene (HCC); Degeneration of lumbar intervertebral disc 07/23/2024 Kerry flowsheet [facility] [address] [place] [place] [address] Ishmael Watts MD from Last 3 Months Family History Medical History Relation Name Comments Lung cancer Mother Schizophrenia Mother Relation Name Status Comments Father Mother Social History Tobacco Use Types Packs/Day Years Used Date Smoking Tobacco: Every Day Cigarettes 0.5 36 Smokeless Tobacco: Never Tobacco Cessation:Ready to Q uit: Not Asked; Counseling Given: Not Answered Alcohol Use Standard Drinks/Week Comments Never 0 [...] 10/09/2023 How often do you attend chur or yazdanism services? Patient declined 10/09/2023 Do you belong to any clubs o r organizations such as mandaeism groups, unions, fraternal or athletic groups, or [...] Recorded Patient Health Questionnaire-2 Score 0 04/24/2024 [facility] - Occupational Stress Questionnaire Answer Date Recorded [...] place to sleep or slept in a nursing home (including now)? No 10/09/2023 Sex and Gender Information Value Date Recorded Sex Assigned at Not on file Legal Sex Male 11:01 PM EDT Gender Identity Not on file Sexual Orientation Not on file Last Filed Vital Signs Vital Sign Reading [...] Mass Index 39.31 10/23/2024 9:20 AM EDT Plan of Treatment Upcoming Encounters Date Type Department Care Team (Late st Contact Info) Description 12/24/2024 8:30 AM EDT Office Visit [facility] [address] [place] [address] Ishmael Watts MD [address] [place] [address] Health Maintenance Due Date Last Done Comments CT Colonography 1965 FIT-DNA 1965 FIT 1965 FOBT 1965 Sigmoidoscopy 1965 Diabetes: Hemoglobin A1C 10/23/2024 04/24/2024, 06/0 07/2023 Influenza Vaccine (Season Ended) 2025 Medicare Annual Wellness (AWV) 04/24/2025 04/24/2024 Diabetes: Urine Protein Screening 07/25/2025 025, 05/25/2023 Diabetes: Retinopathy Screening 04/16/2026 4, 05/17/2022 Colonoscopy 08/23/2029 08/24/2019, 08/24/2019 Colorectal Cancer Screening 08/23/2029 Procedures Procedure Name Priority Date/Time Associated Diagnosis Comments CT LUNG SCREENING LOW DOSE 08/09/2024 8:45 AM EDT [facility] MICROALB CREAT RATIO RANDOM Routine 07/25/2024 9:54 AM EDT from Last 3 Months Results * CT LUNG SCREENING LOW DOSE (08/09/2024 8:45 AM EDT) Anatomical Region Laterality Modality Other 08/09/2024 8:45 AM EDT Narrative 08/09/2024 8:48 AM EDT The [address] [address] [address] Scan Report Signed Patient: LILIANA MICHAELS MR#: [id number] : 1965 Acct:[id number] Age/Sex: 59 / M ADM Date: 08/09/24 Loc: CT Attending Dr: Amina Cassidy D.O. Ordering Physician: Amina Cassidy D.O. Date of Service: 08/09/24 Procedure(s): CT lung screening low-dose Accession Number(s): [id number] cc: Ishmael Watts M.D. [place] [id number] Patient Name: LILIANA MICHAELS MRN: [id number] date: 1965 Sex: M Assigned Patient Location: CT Current Patient Location: CT Accession/Order Number: [id number] Exam Date: 08/09/2024 08:33 Report Date: 08/09/2024 08:45 At the request of: AMINA CASSIDY DO Procedure: CT lung screening low-dose LOW-DOSE SCREENING CHEST CT WITHOUT CONTRAST COMPARISON: 07/15/2022 CLINICAL DATA: Current smoker with 47 year history of tobacco use Spiral axial unenhanced low-dose images were obtained through the chest. Images were reviewed using both narrow and wide window settings. This CT exam was performed using one or more following dose reduction techniques: Automated exposure control, adjustment of the mA and/or kV according to patient size, or use of iterative reconstruction technique. The heart is within normal limits for size. There is minimal coronary disease. Patient has a left-sided pacemaker. No aortic aneurysm is noted. There are similar small mediastinal lymph nodes. Minor gynecomastia is present. Old rib fractures are seen. There is endplate spurring at the spine. No consolidation, pleural effusion or pneumothorax is present. Minor scarring or atelectasis is visualized at the lung bases, greater on the left where there is similar nodular component at the lower lobe. A punctate nodular density is also again seen at the right middle lobe. No developing nodularity is noted. Limited cuts through the upper abdomen again show slight nodular adrenal limb thickening. CT/CT lung screening low-dose IMPRESSION: SIMILAR SCARRING AND NODULARITY. NO DEVELOPING NODULES. Lung RADS category 2 - benign Twelve-month low-dose CT follow-up suggested Impression dictated by: Candida Wright M.D.08/09/2024 8:45 AM Dictation Location: [place] [address] Electronically authenticated by: [id number] Y Date: 08/09/2024 08:45 Dictated By: Candida Wright M.D. Signed By: 08/09/24 0848 DD/ TD/TT: Robotic Machine Tender Production: Procedure Note Radiology, Radiologist, MD - 08/09/2024 [place] [address] CT Scan Report Signed Patient: LILIANA MICHAELS EMR#: [id number] : 1965Acct:[id number] Age/Sex: 59 / MADM Date: 08/09/24 Loc: CT Attending Dr: Amina Cassidy D.O. Ordering Physician: Amina Cassidy D.O. Date of Service: 08/09/24 Procedure(s): CT lung screening low-dose Accession Number(s): [id number] cc: Ishmael Watts M.D. The [place] [address] Patient Name: LILIANA MICHAELS MRN: [id number] date: 1965 Sex: M Assigned Patient Location: CT Current Patient Location: CT Accession/Order Number: [id number] Exam Date: 08/09/2024 08:33 Report Date: 08/09/2024 08:45 At the request of: AMINA CASSIDY DO Procedure: CT lung screening low-dose LOW-DOSE SCREENING CHEST CT WITHOUT CONTRAST COMPARISON: 07/15/2022 CLINICAL DATA: Current smoker with 47 year history of tobacco use Spiral axial unenhanced low-dose images were obtained through the chest. Images were reviewed using both narrow and wide window settings. This CTexam was performed using one or more following dose reduction techniques:Automated exposure control, adjustment of the mA and/or kV according to patientsize, or use of iterative reconstruction technique. The heart is within normal limits for size. There is minimal coronary disease. Patient has a left-sided pacemaker. No aortic aneurysm isnoted. There are similar small mediastinal lymph nodes. Minor gynecomastia is present. Old rib fractures are seen. There is endplate spurring at the spine. No consolidation, pleural effusion or pneumothorax is present. Minorscarring or atelectasis is visualized at the lung bases, greater on the left where there is similar nodular component at the lower lobe. A punctate nodular density is also again seen at the right middle lobe. No developingnodularity is noted. Limited cuts through the upper abdomen again show slight nodular adrenallimb thickening. CT/CT lung screening low-dose IMPRESSION: SIMILAR SCARRING AND NODULARITY. NO DEVELOPING NODULES. Lung RADS category 2 - benign Twelve-month low-dose CT follow-up suggested Impression dictated by: Candida Wright M.D.08/09/2024 8:45 AM Dictation Location: [place] [address] Electronically authenticated by: [id number] Y Date: 508:45 Dictated By: Candida Wright M.D. Signed By:08/09/24 0848 DD/ 0845 TD/TT: Robotic Machine Tender Production: us Generic External Data Provider [facility] Final Result * [facility] MICROALB CREAT RATIO RANDOM (07/25/2024 9:54 AM EDT) MICROALBUMIN URINE RANDOM 1.3 <=30.0 mg/dL [facility] CREATININE URINE RANDOM 54.58 20.00 - 300.00 mg/dL [facility] MICROALBUM CREATININE RATIO UR 23.8 0.0 - 29.9 mg/g [facility] Comment: NO MICROALBUMINURIA 0-29 MG/G CLINICAL MICROALBUMINURIA 30-300 MG/G MACROALBUMINURIA >300 MG/G 07/25/2024 9:54 AM EDT 07/25/2024 9:58 AM EDT Narrative [facility] - 07/25/2024 11:31 AM EDT us Ishmael Watts MD [facility] Final Result [facility] from Last 3 Months Insurance [facility] MEDICARE ADVANTAGE Care Teams Food And Beverage Assistant Manager Relationship Specialty Start Date End Date Ishmael Watts MD [address] [place] [phone] PCP - General Family Medicine 10/10/23
--- OUTSIDE RECORDS SUMMARY | 2024-10-23 10:35 | XMS_ITS | Encounter Summary ---
Author Organization [facility] Address [address] [place] [address] Care Team Providers Care Carpenter Rough Name Role Phone Ishmael Watts MD Primary Care Provider [phone] Reason for Visit * Reason Onset Date Comments Med Refill 10/18/2024 Encounter Details Date Type Department Care Team (Late st Contact Info) Description 10/18/2024 [facility]ill [facility] [address] [place] [phone] Ishmael Watts MD [address] [place] [phone] Degeneration of lumbar intervertebral disc Social History Tobacco Use Types Packs/Day Years [...] often do you attend chur ch or alevism services? Patient declined 10/09/2023 Do you belong to any clubs o r organizations such as samaritan groups, unions, fraternal or athletic groups, or [...] Recorded Patient Health Questionnaire-2 Score 0 04/24/2024 [facility] of Occupat ional [facility] - Occupational Stress Questionnaire Answer Date [...] place to sleep or slept in a correction (including now)? No 10/09/2023 Sex and Gender Information Value Date Recorded Sex Assigned at Not on file Legal Sex Male 11:01 PM EDT Gender Identity Not on file Sexual Orientation Not on file documented as of this encounter Plan of Treatment Upcoming Encounters Date Type Department Care Team (Late st Contact Info) Description 12/24/2024 8:30 AM EDT Office Visit [facility] [address] [place] [address] Ishmael Watts MD [address] [place] [address] documented as of this encounter Visit Diagnoses Diagnosis Degeneration of lumbar intervertebral disc Degeneration of lumbar or lumbosacral intervertebral disc documented in this encounter Additional Health Concerns Assessment Noted Time PHQ-9 Depression Total Score: 4 04/24/20 24 11:00 AM EST documented as of this encounter Care Teams Carpenter Rough Relationship Specialty Start Date End Date Ishmael Watts MD [address] [place] [address] PCP - General Family Medicine 10/10/23 documented as of this encounter
--- OUTSIDE RECORDS SUMMARY | 2024-10-23 10:35 | XMS_ITS | Clinical Summary ---
Author Organization [facility] Address [address] [place] [address] Care Team Providers Care Track Laying Machine Operator Name Role Phone Unavailable Primary Care Provider Unavailabl e Social History Tobacco Use Types Packs/Day Years Used Date Smoking Tobacco: Never Assessed Sex and Gender Information Value Date Recorded Sex Assigned at Not on file Legal Sex Male 12:11 AM EDT Gender Identity Not on file Sexual Orientation Not on file Last Filed Vital Signs Vital Sign Reading Time Taken Comments Blood Pressure 107/56 10/16/2020 2:40 PM EDT Pulse 42 08/22/2020 8:20 AM EDT Temperature 36.2 C (97.2 F) 08/22/2020 8:20 AM EDT Respiratory Rate 18 08/22/2020 8:20 AM EDT Oxygen Saturation 96% 10/16/2020 2:37 PM EDT Inhaled Oxygen Concentration - - Weight 98.4 kg (217 lb) 10/16/2020 2:32 PM EDT Height 163.8 cm (5' 4.5 ) 10/16/2020 2:32 PM EDT Body Mass Index 36.67 10/16/2020 2:32 PM EDT Plan of Treatment Not on file
--- OUTSIDE RECORDS SUMMARY | 2024-10-23 10:35 | XMS_ITS | Encounter Summary ---
Author Organization [facility] Address [address] [place] [address] Care Team Providers Care Sander Hand Name Role Phone Ishmael Watts MD Primary Care Provider [phone] Encounter Details Date Type Department Care Team (Late st Contact Info) Description 10/23/2024 Bamboo flowsheet [facility] [address] [place] [address] Ishmael Watts MD [address] [place] [address] Social History Tobacco Use Types Packs/Day Years [...] often do you attend chur ch or evangelical services? Patient declined 10/09/2023 Do you belong to any clubs o r organizations such as orthodox groups, unions, fraternal or athletic groups, [...] Recorded Patient Health Questionnaire-2 Score 0 04/24/2024 [facility] of Occupat ional Health - Occupational Stress [...] place to sleep or slept in a [facility]p (including now)? No 10/09/2023 Sex and Gender Information Value Date Recorded Sex Assigned at Not on file Legal Sex Male 11:01 PM EDT Gender Identity Not on file Sexual Orientation Not on file documented as of this encounter Plan of Treatment Upcoming Encounters Date Type Department Care Team (Late st Contact Info) Description 12/24/2024 8:30 AM EDT Office Visit [facility] [address] [place] [address] Ishmael Watts MD [address] [place] [address] documented as of this encounter Visit Diagnoses Not on filedocumented in this encounter Additional Health Concerns Assessment Noted Time PHQ-9 Depression Total Score: 4 04/24/20 24 11:00 AM EST documented as of this encounter Care Teams Sander Hand Relationship Specialty Start Date End Date Ishmael Watts MD [address] [place] [address] PCP - General Family Medicine 10/10/23 documented as of this encounter
--- OUTSIDE RECORDS SUMMARY | 2024-10-23 10:35 | XMS_ITS | Encounter Summary ---
Author Organization [facility] Address [address] [place] [address] Phone Care Team Providers Care Word Processor Technician Name Role Phone Ishmael Watts MD Primary Care Provider + Jackelyn Wright APRN-GUEST SERVICES LEAD Unavailable Unavailable Amador Dickens MD Unavailable [phone] Encounter Details Date Type Department Care Team (Late st Contact Info) Description 08/10/2023 Scanned Document [facility] [address] [place] [address] Scanning, Generic Provider Social History Tobacco Use Types Packs/Day Years Used Date Smoking Tobacco: Every Day Cigarettes 1 15 Smokeless Tobacco: Never Alcohol Use Standard Drinks/Week Comments Never 0 (1 standard drink = 0.6 oz pur e alcohol) Sex and Gender Information Value Date Recorded Sex Assigned at Not on file Legal Sex Male 1:30 AM EST Gender Identity Not on file Sexual Orientation Not on file COVID-19 Exposure Response Date Recorded In the last 10 days, have yo u been in contact with someone who was confirmed or suspected to have Coronavirus/COVID-19? No / Unsure 08/12/2023 8:17 AM EDT documented as of this encounter Functional Status * Over the past 2 weeks, how often have you been bothered by any of the following problems? Question Answer Date of Assessment Author Little interest or pleasure in doing things Not at all 08/10/2023 1:31 PM EDT Jeannie Carrillo LPN documented as of this encounter Plan of Treatment Upcoming Encounters Date Type Department Care Team (Late st Contact Info) Description 11/28/2024 8:00 AM EDT Appointment [facility] [address] [place] [address] 11/28/2024 8:30 AM EDT Office Visit [facility] [address] [facility] [address] [place] [address] Amador Dickens MD [address] [facility] [address] [place] [address] 05/15/2025 8:40 AM EST Office Visit [address] [place] [address] Patti Ferrer MD [address] [facility] [address] [place], [place] [phone] documented as of this encounter Visit Diagnoses Not on filedocumented in this encounter Additional Health Concerns Assessment Noted Time A fall risk assessment has been complete d for the patient 08/10/2023 1:31 PM EDT documented as of this encounter Care Teams Word Processor Technician Relationship Specialty Start Date End Date Ishmael Watts MD [address] [place] [address] PCP - General Family Medicine 06/29/23 Jackelyn Wright, GUEST SERVICE AGENT-GUEST SERVICES LEAD [address] [place] [address] Nurse Practitioner Cardiology 11/07/23 05/16/24 Amador Dickens MD [address] [facility] Medical [facility], [address] [place] [address] Ops Analyst Electrophysiology 05/17/24 documented as of this encounter
--- OUTSIDE RECORDS SUMMARY | 2024-10-23 10:35 | XMS_ITS | Referral Summary ---
Author Organization [facility] Address [address] [place] [address] Care Team Providers Care Oil Well Gun Perforator Operator Name Role Phone Unavailable Primary Care [...]
--- OUTSIDE RECORDS SUMMARY | 2024-10-23 10:36 | XMS_ITS | Encounter Summary ---
Author Organization [facility] Address [address] [place] [address] Care Team Providers Care Fan Mail Clerk Name Role Phone Ishmael Watts MD Primary Care Provider [phone] Encounter Details Date Type Department Care Team (Late st Contact Info) Description 05/28/2024 Abstract [facility] [address] [place] [address] Ishmael Watts MD [address] [place] [address] Social History Tobacco Use Types Packs/Day Years [...] often do you attend chur ch or methodist services? Patient declined 10/09/2023 Do you belong to any clubs o r organizations such as gnosticism groups, unions, fraternal or athletic groups, or [...] Recorded Patient Health Questionnaire-2 Score 0 04/24/2024 [facility] of Occupat ional Health - Occupational [...] 12/24/2024 8:30 AM EDT Office Visit [facility] [address] [place] [address] Ishmael Watts MD [address] [place] [address] documented as of this encounter Visit Diagnoses Not on filedocumented in this encounter Additional Health Concerns Assessment Noted Time PHQ-9 Depression Total Score: 4 04/24/20 24 11:00 AM EST documented as of this encounter Care Teams Fan Mail Clerk Relationship Specialty Start Date End Date Ishmael Watts MD [address] [place] [address] PCP - General Family Medicine 10/10/23 documented as of this encounter
--- OUTSIDE RECORDS SUMMARY | 2024-10-23 10:36 | XMS_ITS | Encounter Summary ---
Author Organization [facility] Address [address] [place] [address] Care Team Providers Care Machine Guide Base Winder Name Role Phone Ishmael Watts MD Primary Care Provider [phone] Encounter Details Date Type Department Care Team (Late st Contact Info) Description 10/11/2023 Orders Only [facility] [address] [place] [address] Ishmael Watts MD [address] [place] [address] Social History Tobacco Use Types Packs/Day Years [...] often do you attend chur ch or nondenominational services? Patient declined 10/09/2023 Do you belong to any clubs o r organizations such as adventism groups, unions, fraternal [...] and heating? Not hard at all 10/09/2023 [facility] of Occupat ional Health - Occupational Stress [...] place to sleep or slept in a senior living (including now)? No 10/09/2023 Sex and Gender Information Value Date Recorded Sex Assigned at Not on file Legal Sex Male 11:01 PM EDT Gender Identity Not on file Sexual Orientation Not on file documented as of this encounter Plan of Treatment Upcoming Encounters Date Type Department Care Team (Late st Contact Info) Description 12/24/2024 8:30 AM EDT Office Visit [facility] [address] [place] [address] Ishmael Watts MD [address] [place] [address] documented as of this encounter Procedures Procedure Name Priority Date/Time Associated Diagnosis Comments XR SHOULDER 2+ VIEWS BILATERAL Routine 10/11/2023 12:42 PM EDT documented in this encounter Results * XR shoulder 2+ views bilateral (10/11/2023 12:42 PM EDT) Anatomical Region Laterality Modality Upper Extremities, Shoulder Bilateral Radi ographic Imaging Ishmael Watts MD IMG XR PROCEDURES Final Result documented in this encounter Visit Diagnoses Not on filedocumented in this encounter Care Teams Machine Guide Base Winder Relationship Specialty Start Date End Date Ishmael Watts MD [address] [place] [address] PCP - General Family Medicine 10/10/23 documented as of this encounter
--- OUTSIDE RECORDS SUMMARY | 2024-10-23 10:36 | XMS_ITS | Encounter Summary ---
Author Organization [facility] Address [address] [place] [address] Care Team Providers Care Vault Mechanic Name Role Phone Seun Simon MD Primary Care Provider [phone] Encounter Details Date Type Department Care Team (Late st Contact Info) Description 10/11/2023 Clinisync Result Encounter [facility] External Department Unsolicited Seun Simon MD [address] [place] [address] Social History Tobacco Use Types Packs/Day Years [...] often do you attend chur ch or bahai services? Patient declined 10/09/2023 Do you belong to any clubs o r organizations such as spiritism groups, unions, fraternal or athletic groups, or [...] and heating? Not hard at all 10/09/2023 [facility] of Occupat ional Health - Occupational Stress [...] place to sleep or slept in a fci (including now)? No 10/09/2023 Sex and Gender [...] Office Visit [facility] [address] [place] [address] Seun Simon MD [address] [place] [address] documented as of this encounter Procedures Procedure Name Priority Date/Time Associated Diagnosis Comments XR SHOULDER 2+ VIEWS BILATERAL 10/11/2023 11:34 AM EDT documented in this encounter Results * XR shoulder 2+ views bilateral (10/11/2023 11:34 AM EDT) Anatomical Region Laterality Modality Upper Extremities, Shoulder Bilateral Radi ographic Imaging 10/11/2023 11:3 4 AM EDT Narrative 10/11/2023 11:37 AM EDT [address] [address] XRay Report Signed Patient: LILIANA MICHAELS MR#: [id number] : 1965 Acct:[id number] Age/Sex: 58 / M ADM Date: 10/10/23 Loc: LAB Attending Dr: Seun Simon M.D. Ordering Physician: Seun Simon M.D. Date of Service: 10/10/23 Procedure(s): XR shoulder KRISTOPHER min 2V Accession Number(s): [id number] cc: Seun Simon M.D. [address] [address] Patient Name: LILIANA MCIHAELS MRN: [id number] date: 1965 Sex: M Assigned Patient Location: LAB Current Patient Location: Accession/Order Number: [id number] Exam Date: 10/10/2023 12:45 Report Date: 10/11/2023 11:34 At the request of: SEUN SIMON Procedure: XR shoulder KRISTOPHER min 2V EXAMINATION: XR shoulder KRISTOPHER min 2V HISTORY: Chronic pain of both shoulders M25.511, G89.29, M25.512 COMPARISON: No relevant comparison available. FINDINGS: RIGHT FINDINGS: BONES: Narrowing of the glenohumeral joint with undersurface osteophytes projecting from inferior margin of humeral head and inferior margin of glenoid. Narrowing of the acromioclavicular joint with prominent undersurface and cephalad projecting osteophytes. SOFT TISSUES: No visible soft tissue swelling. OTHER: Negative. LEFT FINDINGS: BONES: Narrowing of the glenohumeral joint with undersurface osteophytes projecting from inferior margin of humeral head and inferior margin of the glenoid. Narrowing of the acromioclavicular joint with prominent undersurface and cephalad projecting osteophytes. SOFT TISSUES: No visible soft tissue swelling. OTHER: Negative. XR/XR shoulder KRISTOPHER min 2V IMPRESSION: RIGHT CONCLUSION: Moderate degenerative changes of the glenohumeral joint and acromioclavicular joint. Findings would predispose to rotator cuff injury. LEFT CONCLUSION: Moderate degenerative changes of the glenohumeral joint and acromioclavicular joint. Findings would predispose to rotator cuff injury. Electronically authenticated by: LAURENT SAHU Date: 10/11/2023 11:34 Dictated By: Laurent Sahu M.D. Signed By: 10/11/23 1137 DD/ 1134 TD/TT: Song And Dance Performer: Procedure Note Radiology, Radiologist, MD - 10/11/2023 [place] [address] XRay Report Signed Patient: LILIANA MICHAELS EMR#: [id number] : 1965Acct:[id number] Age/Sex: 58 / MADM Date: 10/10/23 Loc: LAB Attending Dr: Seun Simon M.D. Ordering Physician: Seun Simon M.D. Date of Service: 10/10/23 Procedure(s): XR shoulder KRISTOPHER min 2V Accession Number(s): [id number] cc: Seun Simon M.D. [facility] [place] [id number] Patient Name: LILIANA MICHAELS MRN: [id number] date: 1965 Sex: M Assigned Patient Location: LAB Current Patient Location: Accession/Order Number: [id number] Exam Date: 10/10/2023 12:45 Report Date: 10/11/2023 11:34 At the request of: SEUN SIMON Procedure: XR shoulder KRISTOPHER min 2V EXAMINATION: XR shoulder KRISTOPHER min 2V HISTORY: Chronic pain of both shoulders M25.511, G89.29, M25.512 COMPARISON: No relevant comparison available. FINDINGS: RIGHT FINDINGS: BONES: Narrowing of the glenohumeral joint with undersurface osteophytes projecting from inferior margin of humeral head and inferior margin of glenoid. Narrowing of the acromioclavicular joint with prominent undersurface and cephalad projecting osteophytes. SOFT TISSUES: No visible soft tissue swelling. OTHER: Negative. LEFT FINDINGS: BONES: Narrowing of the glenohumeral joint with undersurface osteophytes projecting from inferior margin of humeral head and inferior margin of the glenoid. Narrowing of the acromioclavicular joint with prominentundersurface and cephalad projecting osteophytes. SOFT TISSUES: No visible soft tissue swelling. OTHER: Negative. XR/XR shoulder KRISTOPHER min 2V IMPRESSION: RIGHT CONCLUSION: Moderate degenerative changes of the glenohumeral jointand acromioclavicular joint. Findings would predispose to rotator cuff injury. LEFT CONCLUSION: Moderate degenerative changes of the glenohumeral jointand acromioclavicular joint. Findings would predispose to rotator cuff injury. Electronically authenticated by: LAURENT SAHU Date: 10/11/2023 11:34 Dictated By: Laurent Sahu M.D. Signed By:10/11/23 1137 DD/ 1134 TD/TT: Song And Dance Performer: Seun Simon MD IMG XR PROCEDURES Final Result documented in this encounter Visit Diagnoses Not on filedocumented in this encounter Care Teams Vault Mechanic Relationship Specialty Start Date End Date Seun Simon MD [address] [place] [address] PCP - General Family Medicine 10/10/23 documented as of this encounter
--- OUTSIDE RECORDS SUMMARY | 2024-10-23 10:36 | XMS_ITS | Encounter Summary ---
Author Organization [employer] Address [id number] [address] [place] [address] Care Team Providers Care Sas Programmer Name Role Phone Ishmael Watts MD Primary Care Provider [phone] Encounter Details Date Type Department Care Team (Late st Contact Info) Description 09/10/2021 Orders Only [facility] Cardiology [address] [facility] [address] [place] [phone] External, Scanning Provider Social History Tobacco Use Types Packs/Day Years Used Date Smoking Tobacco: Every Day Cigarettes 1 43 Smokeless Tobacco: Never Alcohol Use Standard Drinks/Week Comments Not Currently 0 (1 standard drink = 0.6 oz pur e alcohol) occasionally Childcare Answer Date Recorded Childcare Unknown 10/18/2018 Employment Answer Date Recorded Employment Unknown 10/18/2018 Purpose - Life Answer Date Recorded Purpose and direction in life Unknown Sex and Gender Information Value Date Recorded Sex Assigned at Not on file Legal Sex Male 12:10 PM EDT Gender Identity Not on file Sexual Orientation Not on file COVID-19 Exposure Response Date Recorded In the last 10 days, have yo u been in contact with someone who was confirmed or suspected to have Coronavirus/COVID-19? No / Unsure 08/28/2021 8:47 AM EDT documented as of this encounter Plan of Treatment Not on file documented as of this encounter Procedures Procedure Name Priority Date/Time Associated Diagnosis Comments NUC STRESS LEXISCAN Routine 09/07/2021 documented in this encounter Results * Nuc stress Lexiscan (09/07/2021) Anatomical Region Laterality Modality Chest N/A Nuclear Medicine us Scanning Provider External CV STRESS ORDERABLES Final Result documented in this encounter Visit Diagnoses Not on filedocumented in this encounter Care Teams Sas Programmer Relationship Specialty Start Date End Date Ishmael Watts MD PCP - General Family Medicine 08/16/19 documented as of this encounter
--- OUTSIDE RECORDS SUMMARY | 2024-10-23 10:36 | XMS_ITS | Clinical Summary ---
Author Organization [facility] Address [address] [place] [address] Phone Care Team Providers Care Chainstitch Sewing Machine Operator Name Role Phone Ishmael Watts MD Primary Care Provider + Amador Dickens MD Unavailable [phone] Allergies No known active allergies Medications oxygen (O2) gas therapy 2l at bedtime Active albuterol (Ventolin HFA) 90 mcg/actuation inhaler Inhale 2 puffs every 4 hours if needed. Active cetirizine (ZyrTEC) 10 mg tablet Take 1 tablet (10 mg) by mouth once daily at bedtime. Active fluticasone-umeclid in-vilanter (TRELEGY-ELLIPTA) 100-62.5-25 mcg blister with device Inhale 1 puff. Use as directed Active furosemide (Lasix) 40 mg tablet Take 1 tablet (40 mg) by mouth 2 times a day. Active gabapentin (Neurontin) 300 mg capsule Take 1 capsule (300 mg) by mouth once daily. Active Singulair 10 mg tablet Take 1 tablet (10 mg) by mouth once daily at bedtime. Active nabumetone (Relafen) 500 mg tablet Take 1 tablet (500 mg) by mouth 2 times a day. Active omeprazole (PriLOSEC) [address] capsule Take 1 capsule (40 mg) by mouth once daily. Active oxyCODONE-acetamino phen (Percocet) 7.5-325 mg tablet Take 1 tablet by mouth every 6 hours if needed for severe pain (7 - 10). 1 Active Aldactone 100 mg tablet Take 1 tablet (100 mg) by mouth once daily with breakfast. Active baclofen (Lioresal) 10 mg tablet TAKE 1/2 TO 1 TABLET BY MOUTH TWICE A DAY 4 Active aspirin 81 mg EC tabletIndications:C hronotropic incompetence Take 1 tablet (81 mg) by mouth once daily. 4 12/01/19 25 Active rosuvastatin (Crestor) 10 mg tabletIndications:P eripheral vascular disease, unspecified,Hyperli pidemia, unspecified hyperlipidemia type Take 1 tablet (10 mg) by mouth once daily. 90 tablet 3 5 06/13/19 26 Active Active Problems Problem Noted Date Diagnosed Date Former smoker 06/13/2024 Hyperlipidemia 06/13/2024 Mild coronary artery disease 06/13/2024 Pacemaker 12/01/2023 Other fatigue 07/22/2023 BMI 37.0-37.9, adult 07/13/2023 Sick sinus syndrome (Multi) 07/13/2023 Chronotropic incompetence 07/13/2023 COPD (chronic obstructive pulmonary disease) (Mu lti) 05/23/2023 Current smoker 05/23/2023 Dyspnea 05/23/2023 Sinus bradycardia 05/23/2023 Obstructive sleep apnea (adult) (pediatric) 10/2022 Peripheral vascular disease, unspecified 023 Type 2 diabetes mellitus wit h hyperglycemia, without long-term current use of insulin 04/13/2023 Overview (07/22/2023): Last Assessment & Plan: Not checking BS and due for A1C. Stick to ADA diet and limit carbs. Essential hypertension, benign 05/13/2022 Overview (07/22/2023): Last Assessment & Plan: BP controlled and monitor PRN. Resolved Problems Problem Noted Date Diagnosed Date Resolved Date Abnormal stress test 05/23/2023 024 Chronic diastolic heart failure 04/13/2023 12/01/2023 Overview (07/22/2023): Last Assessment & Plan: Occasional edema and use lasix PRN. Elevate legs PRN. Encounters Date Type Department Care Team Description 08/28/2024 11:55 AM EDT - 08/28/2024 11:59 PM EDT Hospital Encounter [facility] [address] [place] [address] Cardiac pacemaker in situ Discharge Disposition: Home from Last 3 Months Family History Medical History Relation Name Comments No Known Problems Father Mental illness Mother Relation Name Status Comments Father Mother Social History Tobacco Use Types Packs/Day Years Used Date Smoking Tobacco: Former Cigarettes 1 15 S tarted: 2024 Smokeless Tobacco: Never Tobacco Cessation:Counseling Given: Not Answered Alcohol Use Standard Drinks/Week Comments Never 0 (1 standard drink = 0.6 oz pur e alcohol) Sex and Gender Information Value Date Recorded Sex Assigned at Not on file Legal Sex Male 1:30 AM EST Gender Identity Not on file Sexual Orientation Not on file Last Filed Vital Signs Vital Sign Reading Time Taken Comments Blood Pressure 132/74 06/13/2024 9:07 AM EST Pulse 80 06/13/2024 9:07 AM EST Temperature 36.4 C (97.5 F) 08/05/2023 12:13 PM EDT Respiratory Rate 16 08/05/2023 5:30 PM EDT Oxygen Saturation 96% 08/05/2023 5:30 PM EDT Inhaled Oxygen Concentration - - Weight 96.2 kg (212 lb) 06/13/2024 9:07 AM EST Height 162.6 cm (5' 4 ) 06/13/2024 9:07 AM EST Body Mass Index 36.39 06/13/2024 9:07 AM EST Plan of Treatment Upcoming Encounters Date Type Department Care Team (Late st Contact Info) Description 11/28/2024 8:00 AM EDT Appointment [facility] [address] [place] [address] 11/28/2024 8:30 AM EDT Office Visit [facility] [address] [facility] [address] [place] [address] Amador Dickens MD [address] [facility] [address] [place] [address] 05/15/2025 8:40 AM EST Office Visit [place] [address] [place] [address] Patit Ferrer MD [address] [facility] [address] [place] [address] Health Maintenance Due Date Last Done Comments CT Colonography 1965 Diabetes: Hemoglobin A1C 1965 Diabetes: Urine Protein Screening 1965 FIT-DNA (Cologuard) 1965 FIT 1965 HIV Screening 1965 Lipid Panel 1965 Medicare Annual Wellness Vis it (AWV) 1965 Sigmoidoscopy 1965 MMR Vaccines (1 of 1 - Standard series) 02/21/1965 Diabetes: Retinopathy Screening 02/21/1974 Hepatitis C Screening 02/21/1982 Pneumococcal Vaccine (1 of 2 - PCV) 02/21/1983 DTaP/Tdap/Td Vaccines (1 - Tdap) 02/21/1986 Zoster Vaccines (1 of 2) 02/21/2014 COVID-19 Vaccine (1 - 2023-2 5 season) 2024 RSV High Risk: (Elderly (60+ ) or Population) (1 - Risk 60-74 years 1-dose series) 2024 Creatinine Level 08/04/2024 08/05/2023, 07/29/2023 Echocardiogram 08/04/2024 08/05/2023 Potassium Level 08/04/2024 08/05/2023, 07/29/2023 Influenza Vaccine (Season Ended) 2025 Colonoscopy 08/23/2029 08/24/2019 Colorectal Cancer Screening 08/23/2029 HIB Vaccines Aged Out No longer eligi ble based on patient's age to complete this topic HPV Vaccines Aged Out No longer eligi ble based on patient's age to complete this topic Hepatitis A Vaccines Aged Out No long er eligible based on patient's age to complete this topic Hepatitis B Vaccines Aged Out No long er eligible based on patient's age to complete this topic IPV Vaccines Aged Out No longer eligi ble based on patient's age to complete this topic Meningococcal Vaccine Aged Out No mu daniel eligible based on patient's age to complete this topic Rotavirus Vaccines Aged Out No longer eligible based on patient's age to complete this topic Medical Devices Implanted Type Area Barrel Rifler Operator Device Identifier Shelf Expiration Date Model / Serial / Lot Lead, Capsurefix Novus, 52 Cm - [id number] Implanted:Qty : 1 on 08/05/2023 by Amador Dickens MD at [facility] Cardiac Pacemaker Left: Chest [employer] [id number] 06/01/2025 [id number] / [id number] 9V / [id number] 9V Lead, Capsurefix Novus, 45 Cm - [id number] Implanted:Qty : 1 on 08/05/2023 by Amador Dickens MD at [facility] Cardiac Pacemaker Left: Chest [employer] [id number] 02/08/2025 5076-45 / [id number] 1V / [id number] 1V Pacemaker, Dual Chamber, Lone Jack Mri Xt Dr - [id number] Implanted:Qty : 1 on 08/05/2023 by Amador Dickens MD at [facility] Cardiac Pacemaker Left: Chest [employer] [id number] 01/03/2025 [id number] / [id number] 0G / [id number] 0G Procedures Procedure Name Priority Date/Time Associated Diagnosis Comments CARDIAC DEVICE CHECK - REMOTE - PACEMAKER Routine 08/28/2024 1:45 PM EDT Cardiac pacemaker in situ TRANSTHORACIC ECHO (TTE) COMPLETE STAT 08/05/2023 1:26 PM EDT Chronotropic incompetence Abnormal stress test Dyspnea Bradycardia, unspecified BASIC METABOLIC PANEL STAT 08/05/2023 12:18 PM EDT from Last 3 Months or Most Recently Relevant to Health Maintenance Results * CARDIAC DEVICE CHECK - REMOTE - PACEMAKER (08/28/2024 1:45 PM EDT) Anatomical Region Laterality Modality Monitor/Device 08/28/2024 5:56 AM EDT Amador Dickens MD CV IMPLANTABLE CARDIAC DEVICE PROCEDURES Final Result * TRANSTHORACIC ECHO (TTE) COMPLETE (08/05/2023 1:26 PM EDT) AV mn grad 4.0 mmHg SYNGO AV pk vaughn 1.43 m/s SYNGO LV EF 60 % SYNGO LVOT diam 2.00 cm SYNGO MV E/A ratio 0.88 SYNGO Tricuspid annular plane systolic excursion 3.6 cm SYNGO MV avg E/e' ratio 7.78 SYNGO LA vol index A/L 29.3 ml/m2 SYNGO RV free wall pk S' 15.40 cm/s SYNGO RVSP 23.4 mmHg SYNGO LVIDd 5.28 cm SYNGO Aortic Valve Area by Continuity of Peak Velocity 2.42 cm2 SYNGO AV pk grad 8.2 mmHg SYNGO Aortic Valve Area by Continuity of VTI 2.62 cm2 SYNGO LV A4C EF 62.4 SYNGO 08/05/2023 11:4 6 AM EDT Narrative SYNGO - 08/05/2023 2:30 PM EDT [place] [address] TRANSTHORACIC ECHOCARDIOGRAM REPORT Patient Name: LILIANA MICHAELS Reading Physician: [id number] Morris MD, [facility] Study Date: 08/05/2023 Ordering Provider: [id number] ANA M SALINAS MRN/PID: [id number] Fellow: Nurse: Date of /Age: 10 1965 Plasterer Spray Gun: Eli Pisano RDCS Gender: M Additional Staff: Height: 162.56 cm Admit Date: Weight: 90.72 kg Admission Status: Outpatient BSA / BMI: 1.96 m2 / 34.33 Department Location: [place] [address] Echo Lab Blood Pressure: 128 /73 mmHg Study Type: TRANSTHORACIC ECHO (TTE) COMPLETE Diagnosis/ICD: Bradycardia, unspecified-R00.1 Indication: Abnormal EKG, Pre-EP CPT Codes: Echo Complete w Full Doppler-[id number] Study Detail: The following Echo studies were [...] LA Area A2C: 18.9 cm2 LA Major Oxford A4C: 5.8 cm LA Major Oxford A2C: 5.5 cm LA Volume Index: 27.0 [...] AoV Mean P.0 mmHg (1.7-11.5mmHg) LVOT Max Vaughn: 1.10 m/s (<=1.1m/s) AoV VTI: 35.20 cm [...] Accel Time: 158 msec (>120ms) PV Max Vaughn: 1.3 m/s (0.6-0.9m/s) PV Max P.6 mmHg [id number] Jai Morris MD, [facility] Electronically signed on 08/05/2023 at 2:30:14 PM Final Procedure Note Jai Morris MD - 08/05/2023 [place] [address] TRANSTHORACIC ECHOCARDIOGRAM REPORT Patient Name: LILIANA MICHAELS Reading Physician: Ty Long MD, [facility] Study Date: 08/05/2023 Ordering Provider: [id number] ELISSA SALINAS MRN/PID: [id number] Fellow: Nurse: Date of /Age: 10 1965 / 58 Plasterer Spray Gun: Eli Gibbons RDCS Gender: M Additional Staff: Height: 162.56 cm Admit Date: Weight: 90.72 kg Admission Status: Outpatient BSA / BMI: 1.96 m2 / 34.33 Department Location: [place] [address] Echo Lab Blood Pressure: 128 /73 mmHg Study Type: TRANSTHORACIC ECHO (TTE) COMPLETE Diagnosis/ICD: Bradycardia, unspecified-R00.1 Indication: Abnormal EKG, Pre-EP CPT Codes: Echo Complete w Full Doppler-[id number] Study Detail: The following Echo studies were performed: 2D, M-Mode,color flow and Doppler. Technically challenging study due to bodyhabitus. PHYSICIAN INTERPRETATION: Left Ventricle: Left ventricular systolic function is normal, with anestimated ejection fraction of 60%. There are no regional wall motionabnormalities. The left ventricular cavity size is normal. SpectralDoppler shows an impaired relaxation pattern of left ventricular diastolicfilling. Left Atrium: The left atrium is mildly dilated. Right Ventricle: The right ventricle is normal in size. There is normalright ventricular global systolic function. Normal RV size and function Normal RVSP. Right Atrium: The right atrium is normal in size. Aortic Valve: The aortic valve is trileaflet. There is no evidence ofaortic valve regurgitation. The peak instantaneous gradient of the aorticvalve is 8.2 mmHg. The mean gradient of the aortic valve is 4.0 mmHg.Mildly thickened aortic valve without significant stenosis orregurgitation. Mitral Valve: The mitral valve is normal in structure. There is noevidence of mitral valve regurgitation. Normal mitral valve. Tricuspid Valve: The tricuspid valve is structurally normal. There is mildtricuspid regurgitation. Pulmonic Valve: The pulmonic valve is structurally normal. There is noindication of pulmonic valve regurgitation. Pericardium: There is a trivial pericardial effusion. Aorta: The aortic root is normal. Densely calcified ascending aorta thoughnot dilated and no evidence of mobile plaque. CONCLUSIONS: 1. Left ventricular systolic function is normal with a 60% estimatedejection fraction. 2. Spectral Doppler shows an impaired relaxation pattern of leftventricular diastolic filling. 3. Normal RV size and function Normal RVSP. 4. Normal mitral valve. 5. Mildly thickened aortic valve without significant stenosis orregurgitation. 6. Severe sinus bradycardia heart rate 33-43 [...] LA Area A2C: 18.9 cm2 LA Major Oxford A4C: 5.8 cm LA Major Oxford A2C: 5.5 cm LA Volume Index: 27.0 [...] AoV Mean P.0 mmHg (1.7-11.5mmHg) LVOT Max Vaughn: 1.10 m/s (<=1.1m/s) AoV VTI: 35.20 cm [...] Accel Time: 158 msec (>120ms) PV Max Vaughn: 1.3 m/s (0.6-0.9m/s) PV Max P.6 mmHg [id number] Jai Morris MD, FACC Electronically signed on 08/05/2023 at 2:30:14 PM Final Ana M Salinas PECAN HULLER-VULCANIZED FIBER UNIT OPERATOR CV ECHO PROCEDURES Final Result SYNGO * Basic Metabolic Panel (08/05/2023 12:18 PM EDT) Glucose 95 74 - 99 mg/dL LAB CHEMISTRY METHOD 08/05/2023 1:29 PM EDT [facility] Sodium 139 136 - 145 mmol/L LAB CHEMISTRY METHOD 08/05/2023 1:29 PM EDT [facility] Potassium 4.0 3.5 - 5.3 mmol/L LAB CHEMISTRY METHOD 08/05/2023 1:29 PM EDT [facility] Chloride 102 98 - 107 mmol/L LAB CHEMISTRY METHOD 08/05/2023 1:29 PM EDT [facility] Bicarbonate 29 21 - 32 mmol/L LAB CHEMISTRY METHOD 08/05/2023 1:29 PM EDT [facility] Anion Gap 12 10 - 20 mmol/L LAB CHEMISTRY METHOD 08/05/2023 1:29 PM EDT [facility] Urea Nitrogen 17 6 - 23 mg/dL LAB CHEMISTRY METHOD 08/05/2023 1:29 PM EDT [facility] Creatinine 1.12 0.50 - 1.30 mg/dL LAB CHEMISTRY METHOD 08/05/2023 1:29 PM EDT [facility] eGFR 76 >60 mL/min/1.7 3m*2 LAB CHEMISTRY METHOD 08/05/2023 1:29 PM EDT [facility] Comment: Calculations of estimated GFR are performed using the 2020 CKD-EPI Study Refit equation without the race variable for the IDMS-Traceable creatinine methods. https://jasn.asnjournals.org/content//ASN.4545840842 Calcium 9.6 8.6 - 10.3 mg/dL LAB CHEMISTRY METHOD 08/05/2023 1:29 PM EDT [facility] Blood Venous blood specimen / Unknown Venipuncture / Unknown 08/05/2023 12:18 PM EDT 08/05/2023 12:52 PM EDT Ana M Dodge Stanley PECAN HULLER-VULCANIZED FIBER UNIT OPERATOR LAB BLOOD ORDERABLES Fin al Result [facility] [address] [place] [address] from Last 3 Months or Most Recently Relevant to Health Maintenance Insurance [employer] Directives For more information, please contact: [phone] (Available ) * Full Code (Latest Code Status on File) Date Activated Date Inactivated Comments 08/05/2023 12:02 PM Question Answer Comments Plan of Care: Code Status Discussion Not Compl eted Decision Maker: Provider Rationale: Patient condition does not warra nt discussion Care Teams Chainstitch Sewing Machine Operator Relationship Specialty Start Date End Date Ishmael Watts MD [address] [place] [address] PCP - General Family Medicine 06/29/23 Amador Dickens MD [address] [facility] [address] [place] [address] Blender Machine Operator Electrophysiology 05/17/24
--- OUTSIDE RECORDS SUMMARY | 2024-10-23 10:36 | XMS_ITS | Encounter Summary ---
Author Organization [facility] Address [address] [place] [address] Care Team Providers Care Mds Coordinator Name Role Phone Ishmael Watts MD Primary Care Provider [phone] Encounter Details Date Type Department Care Team (Late st Contact Info) Description 11/09/2023 Clinisync Result Encounter [facility] External Department Unsolicited Provider, Generic External Data Social History Tobacco Use Types Packs/Day Years [...] How often do you attend chur or druze services? Patient declined 10/09/2023 Do you belong to any clubs o r organizations such as taoist groups, unions, fraternal or athletic groups, or [...] and heating? Not hard at all 10/09/2023 [facility] - Occupational [...] to sleep or slept in a senior care (including now)? No 10/09/2023 Sex and Gender [...] Office Visit [facility] [address] [place] [address] Ishmael Watts MD [address] [place] [address] documented as of this encounter Procedures Procedure Name Priority Date/Time Associated Diagnosis Comments XR CHEST 2 VIEWS PA/LAT 11/09/2023 9:33 AM EDT documented in this encounter Results * XR CHEST 2 VIEWS PA/LAT (11/09/2023 9:33 AM EDT) Anatomical Region Laterality Modality Radiographic Estella ging 11/09/2023 9:33 AM EDT Narrative 11/10/2023 8:35 AM EDT Report to [facility] registration on 11/09/2023 at 8:30 AM for chest x-ray and device check prior to appointment with Dr. Dickens at 10 AM Interpreted By: Sancho Gross, STUDY: XR CHEST 2 VIEWS; 11/09/2023 9:46 am INDICATION: Signs/Symptoms:Pacemaker. COMPARISON: 08/05/2023 ACCESSION NUMBER(S): [id number] ORDERING CLINICIAN: BERT METCALF FINDINGS: Left-sided pacemaker in place. CARDIOMEDIASTINAL SILHOUETTE: Cardiomediastinal silhouette is normal in size and configuration. LUNGS: Lungs are clear. ABDOMEN: No remarkable upper abdominal findings. BONES: No acute osseous changes. IMPRESSION: 1. No evidence of acute cardiopulmonary process. MACRO: None Signed by: Sancho Gross 11/10/2023 8:35 AM Dictation workstation: [id number] Procedure Note Radiology, Radiologist, - 11/10/2023 Report to [facility] registration on 11/09/2023 at 8:30 AM for chestx-ray and device check prior to appointment with Dr. Dickens at 10 AM Interpreted By: Sancho Gross, STUDY: XR CHEST 2 VIEWS; 11/09/2023 9:46 am INDICATION: Signs/Symptoms:Pacemaker. COMPARISON: 08/05/2023 ACCESSION NUMBER(S): [id number] ORDERING CLINICIAN: BERT METCALF FINDINGS: Left-sided pacemaker in place. CARDIOMEDIASTINAL SILHOUETTE: Cardiomediastinal silhouette is normal in size and configuration. LUNGS: Lungs are clear. ABDOMEN: No remarkable upper abdominal findings. BONES: No acute osseous changes. IMPRESSION: 1. No evidence of acute cardiopulmonary process. MACRO: None Signed by: Sancho Gross 11/10/2023 8:35 AM Dictation workstation: [id number] Generic External Data Provider IMG XR PROCEDURES Final Result documented in this encounter Visit Diagnoses Not on filedocumented in this encounter Care Teams Mds Coordinator Relationship Specialty Start Date End Date Ishmael Watts MD [address] [place] [address] PCP - General Family Medicine 10/10/23 documented as of this encounter
--- OUTSIDE RECORDS SUMMARY | 2024-10-23 10:36 | XMS_ITS | Encounter Summary ---
Author Organization [facility] Address [address] [place] [address] Care Team Providers Care Senior Security Engineer Name Role Phone Ishmael Watts MD Primary Care Provider [phone] Encounter Details Date Type Department Care Team (Late st Contact Info) Description 05/30/2024 Orders Only [facility] [address] [place] [address] Ishmael Watts MD [address] [place] [address] Social History Tobacco Use Types Packs/Day Years [...] often do you attend chur ch or quaker services? Patient declined 10/09/2023 Do you belong to any clubs o r organizations such as protestant groups, unions, fraternal or athletic groups, or [...] Recorded Patient Health Questionnaire-2 Score 0 04/24/2024 [facility] - Occupational Stress [...] place to sleep or slept in a detention (including now)? No 10/09/2023 Sex and Gender [...] Office Visit [facility] [address] [place] [address] Ishmael Watts MD [address] [place] [address] documented as of this encounter Procedures Procedure Name Priority Date/Time Associated Diagnosis Comments RHYTHM ECG, REPORT Routine 05/30/2024 9:25 AM EST documented in this encounter Results * ECG 3 Lead (05/30/2024 9:25 AM EST) Ishmael Watts MD IN CLINIC/BEDSIDE ORDERABLES Fin al Result documented in this encounter Visit Diagnoses Not on filedocumented in this encounter Additional Health Concerns Assessment Noted Time PHQ-9 Depression Total Score: 4 04/24/20 24 11:00 AM EST documented as of this encounter Care Teams Senior Security Engineer Relationship Specialty Start Date End Date Ishmael Watts MD [address] [place] [address] PCP - General Family Medicine 10/10/23 documented as of this encounter
--- OUTSIDE RECORDS SUMMARY | 2024-10-23 10:36 | XMS_ITS | Encounter Summary ---
Author Organization [facility] Address [address] [place] [address] Care Team Providers Care Manager Utilization Name Role Phone Ishmael Watts MD Primary Care Provider Encounter Details Date Type Department Care Team (Late st Contact Info) Description 05/28/2024 Orders Only [facility] [address] [place] [address] Unallocated, [facility] Provider, [address] [place] [address] Social History Tobacco Use Types Packs/Day Years [...] often do you attend chur ch or christian services? Patient declined 10/09/2023 Do you belong to any clubs o r organizations such as mormonism groups, unions, fraternal [...] Recorded Patient Health Questionnaire-2 Score 0 04/24/2024 [facility] - Occupational Stress [...] place to sleep or slept in a assisted (including now)? No 10/09/2023 Sex and Gender [...] Office Visit [facility] [address] [place] [address] Ishmael Watts MD [address] [place] [address] documented as of this encounter Procedures Procedure Name Priority Date/Time Associated Diagnosis Comments XR CHEST 2 VIEWS Routine 05/27/2024 12:45 PM EST documented in this encounter Results * XR chest 2 views (05/27/2024 12:45 PM EST) Anatomical Region Laterality Modality Chest Radiographic Estella ging us [facility] Provider Unallocated IMG XR PROCEDURES F inal Result documented in this encounter Visit Diagnoses Not on filedocumented in this encounter Additional Health Concerns Assessment Noted Time PHQ-9 Depression Total Score: 4 04/24/20 24 11:00 AM EST documented as of this encounter Care Teams Manager Utilization Relationship Specialty Start Date End Date Ishmael Watts MD [address] [place] [address] PCP - General Family Medicine 10/10/23 documented as of this encounter
--- OUTSIDE RECORDS SUMMARY | 2024-10-23 10:36 | XMS_ITS | Encounter Summary ---
Author Organization [facility] Address [address] [place] [address] Phone Care Team Providers Care Bias Binding Cutter Name Role Phone Ishmael Watts MD Primary Care Provider + Jackelyn Wright APRN-EXTRACT OPERATOR Unavailable Unavailable Amador Dickens MD Unavailable [phone] Encounter Details Date Type Department Care Team (Late st Contact Info) Description 07/18/[address] [facility] [address] [place] [address] Scanning, Generic Provider Social History Tobacco Use Types Packs/Day Years Used Date Smoking Tobacco: Every Day Cigarettes Smokeless Tobacco: Never Alcohol Use Standard Drinks/Week [...] suspected to have Coronavirus/COVID-19? No / Unsure 07/13/2023 8:25 AM EST documented as of this encounter Plan of Treatment Upcoming Encounters Date Type Department Care Team (Late st Contact Info) Description 11/28/2024 8:00 AM EDT Appointment [facility] [address] [place] [address] 11/28/2024 8:30 AM EDT Office Visit [facility] [address] [address] Amador Dickens MD [address] [facility] [address] [place] [address] 05/15/2025 8:40 AM EST Office Visit [address] [place] [address] Patti Ferrer MD 703 [facility] 2, [address] [place] [address] documented as of this encounter Visit Diagnoses Not on filedocumented in this encounter Additional Health Concerns Assessment Noted Time A fall risk assessment has been complete d for the patient 07/13/2023 8:32 AM EST documented as of this encounter Care Teams Bias Binding Cutter Relationship Specialty Start Date End Date Ishmael Watts MD [address] [place] [address] PCP - General Family Medicine 06/29/23 Jackelyn Wright, PRO SHOP ATTENDANT-EXTRACT OPERATOR [address] [place] [address] Nurse Practitioner Cardiology 11/07/23 05/16/24 Amador Dickens MD [address] [facility] Medical Office [facility], [address] [place] [address] Clay Caster Electrophysiology 05/17/24 documented as of this encounter
--- OUTSIDE RECORDS SUMMARY | 2024-10-23 10:36 | XMS_ITS | Clinical Summary ---
Author Organization [employer] Address [id number] [address] [place] [address] Care Team Providers Care Laboratory Inspector Name Role Phone Ishmael Watts MD Primary Care Provider Allergies No known active allergies Medications cetirizine (ZyrTEC) 10 mg tablet Take 1 tablet (10 mg total) by mouth in the morning. 08/15/2019 Active TRELEGY ELLIPTA 100-62.5-25 mcg blister with device 08/17/2019 Active furosemide (LASIX) 40 mg tablet Take 1 tablet (40 mg total) by mouth 2 (two) times a day. 07/11/2019 Active gabapentin (NEURONTIN) 300 mg capsule Take 1 capsule (300 mg total) by mouth nightly. 08/04/2019 Active oxyCODONE-aceta minophen (PERCOCET) 7.5-325 mg per tablet 08/16/2019 Active omeprazole (PriLOSEC) 40 mg capsule Take by mouth daily. 08/12/2019 Active nabumetone (RELAFEN) 500 mg tablet 08/12/2019 Active montelukast (SINGULAIR) 10 mg tablet 08/12/2019 Active spironolactone (ALDACTONE) 50 mg tablet Take 1 tablet (50 mg total) by mouth in the morning. 08/12/2019 Active ibuprofen (ADVIL,MOTRIN) 200 mg tablet Take 1 tablet (200 mg total) by mouth every 6 (six) hours as needed for pain. Active baclofen (LIORESAL) 10 mg tablet Take 1 tablet (10 mg total) by mouth 3 (three) times a day. Active Active Problems No known active problems Family History Medical History Relation Name Comments Brain cancer Maternal Aunt Brain Tumor Mother Lung cancer Mother Schizophrenia Mother Cancer Sister Relation Name Status Comments Father Maternal Aunt Alive Mother (Age 52) Sister Alive Social History Tobacco Use Types Packs/Day Years Used Date Smoking Tobacco: Every Day Cigarettes 1 43 Smokeless Tobacco: Never Tobacco Cessation:Ready to Q uit: Not Asked; Counseling Given: Not Answered Alcohol Use Standard Drinks/Week Comments Never 0 (1 standard drink = 0.6 oz pur e alcohol) Childcare Answer Date Recorded Childcare Unknown 10/18/2018 Employment Answer Date Recorded Employment Unknown 10/18/2018 Hunger Screening Answer Date Recorded Within the past 12 months we worried whether our food would run out before we got money to buy more. Never True 12/07/2023 Within the past 12 months th e food we bought just didn't last and we didn't have money to get more. Never True 12/07/2023 Purpose - Life Answer Date Recorded Purpose and direction in life Unknown Sex and Gender Information Value Date Recorded Sex Assigned at Not on file Legal Sex Male 12:10 PM EDT Gender Identity Not on file Sexual Orientation Not on file Last Filed Vital Signs Vital Sign Reading Time Taken Comments Blood Pressure 149/78 12/07/2023 9:57 AM EDT Pulse 42 11/11/2021 8:40 AM EDT Temperature 36.6 C (97.8 F) 08/28/2021 8:58 AM EDT Respiratory Rate 16 06/30/2021 3:30 PM EST Oxygen Saturation 91% 06/30/2021 3:40 PM EST Inhaled Oxygen Concentration - - Weight 94.8 kg (209 lb) 12/07/2023 9:57 AM EDT Height 162.6 cm (5' 4 ) 12/07/2023 9:57 AM EDT Body Mass Index 35.87 12/07/2023 9:57 AM EDT Plan of Treatment Health Maintenance Due Date Last Done Comments Diabetic Ophthalmology Exam 1965 Statin Use: Diabetic 1965 Tobacco Counseling 1965 Depression Screening 1976 Adult BMI Follow Up Plan 02/21/1982 Diabetic Foot Exam 02/21/1982 DTaP,Tdap and Td Vaccines (1 - Tdap) 02/21/1983 Zoster (Shingles) Vaccine (1 of 2) 02/21/2014 Adult BMI Screening 12/06/2024 12/07/2023 Tobacco Screening 12/06/2024 12/07/2023 Influenza Vaccine 01/07/2025 Colonoscopy 08/23/2029 08/24/2019, 08/24/2019 Medical Devices Implanted Type Area Auto Body Builder Apprentice Device Identifier Shelf Expiration Date Model / Serial / Lot Mesh [id number] Progrip Srg - Sna - [id number] Implanted:Qty: 1 on 06/30/2021 by Roc Ramsey DO at [facility] Mesh Right: Abdomen [employer] [facility] 10/07/2023 [id number] / NA / [id number] Procedures Procedure Name Priority Date/Time Associated Diagnosis Comments PROVATION COLONOSCOPY Routine 08/24/2019 8:42 AM EDT from Last 3 Months or Most Recently Relevant to Health Maintenance Results * ES colonoscopy imaging (08/24/2019 8:42 AM EDT) Narrative SYSTEMGENERATED, DOCUMENTATION - 08/24/2019 8:42 AM EDT This order has been auto-finalized for image and report archival. *See procedures tab in Epic or report included with PACS images for full interpretation.* us Germán Dukes MD IMG OR IMG ORDERABLES Final Re sult from Last 3 Months or Most Recently Relevant to Health Maintenance Insurance [facility] MEDIC[facility] Care Teams Laboratory Inspector Relationship Specialty Start Date End Date Ishmael Watts MD PCP - General Family Medicine 08/16/19
--- OUTSIDE RECORDS SUMMARY | 2024-10-23 10:36 | XMS_ITS | Encounter Summary ---
Author Organization [facility] Address [address] [place] [address] Care Team Providers Care Chute Tapper Name Role Phone Ishmael Watts MD Primary Care Provider [phone] Encounter Details Date Type Department Care Team (Late st Contact Info) Description 05/14/2024 Orders Only [facility] [address] [place] [address] Unallocated, Noms Provider, [address] [place] [address] Social History Tobacco Use Types Packs/Day Years [...] often do you attend chur ch or congregation services? Patient declined 10/09/2023 Do you belong to any clubs o r organizations such as sikh groups, unions, fraternal or athletic groups, or [...] Recorded Patient Health Questionnaire-2 Score 0 04/24/2024 [facility] Occupat ional Health - [...] place to sleep or slept in a retirement (including now)? No 10/09/2023 Sex and Gender Information Value Date Recorded Sex Assigned at Not on file Legal Sex Male 11:01 PM EDT Gender Identity Not on file Sexual Orientation Not on file documented as of this encounter Plan of Treatment Upcoming Encounters Date Type Department Care Team (Late st Contact Info) Description 12/24/2024 8:30 AM EDT Office Visit [facility] [address] [place] [address] Ishmael Watts MD [address] [place] [address] documented as of this encounter Procedures Procedure Name Priority Date/Time Associated Diagnosis Comments XR SHOULDER 2+ VIEWS RIGHT Routine 05/12/2024 11:35 AM EST documented in this encounter Results * XR shoulder 2+ views right (05/12/2024 11:35 AM EST) Anatomical Region Laterality Modality Upper Extremities, Shoulder Right Radi ographic Imaging us Noms Provider Unallocated MD LUCAS XR PROCEDURES F inal Result documented in this encounter Visit Diagnoses Not on filedocumented in this encounter Additional Health Concerns Assessment Noted Time PHQ-9 Depression Total Score: 4 04/24/20 24 11:00 AM EST documented as of this encounter Care Teams Chute Tapper Relationship Specialty Start Date End Date Ishmael Watts MD [address] [place] [address] PCP - General Family Medicine 10/10/23 documented as of this encounter
--- OUTSIDE RECORDS SUMMARY | 2024-10-23 10:36 | XMS_ITS | Encounter Summary ---
Author Organization [facility] Address [address] [place] [address] Phone Care Team Providers Care Estate Administrator Name Role Phone Ishmael Watts MD Primary Care Provider + Ishmael Watts MD Primary Care Provider + Jackelyn Wright KEY OPERATOR-COTTON CLEANER Unavailable Unavailable Amador Dickens MD Unavailable [phone] Encounter Details Date Type Department Care Team (Late st Contact Info) Description 04/15/2021 Orders Only [facility] [address] [place] [address] Conversion, Onbase Social History Tobacco Use Types Packs/Day Years [...] Info) Description 11/28/2024 8:00 AM EDT Appointment [facility] [address] [place] [address] 11/28/2024 8:30 AM EDT Office Visit [facility] [address] [facility] [address] [place] [address] Amador Dickens MD [address] [facility] [address] [place] [address] 05/15/2025 8:40 AM EST Office Visit [address] [place] [address] Patti Ferrer MD 703 [facility] 2, [address] [place] [address] Scheduled Orders Name Type Priority Associated Diagnoses Orde r Schedule OUTSIDE LAB SCAN Lab Ordered: 04/15/2021 documented as of this encounter Visit Diagnoses Not on filedocumented in this encounter Care Teams Estate Administrator Relationship Specialty Start Date End Date Ishmael Watts MD PCP - General 05/09/19 06/28/23 Ishmael Watts MD [address] [place] [address] PCP - General Family Medicine 06/29/23 Jackelyn Wright, KEY OPERATOR-COTTON CLEANER [address] [place] [address] Nurse Practitioner Cardiology 11/07/23 05/16/24 Amador Dickens MD [address] [facility] Medical Office [facility], [address] [place] [address] Service Tester Electrophysiology 05/17/24 documented as of this encounter
--- OUTSIDE RECORDS SUMMARY | 2024-10-23 10:36 | XMS_ITS | Encounter Summary ---
Author Organization [facility] Address [address] [place] [address] Care Team Providers Care Ranger Aide Name Role Phone Ishmael Watts MD Primary Care Provider [phone] Ishmael Watts MD Primary Care Provider [phone] Encounter Details Date Type Department Care Team (Late st Contact Info) Description 08/10/2023 Clinisync Result Encounter [facility] External Department Unsolicited [...] Encounters Date Type Department Care Team (Late Contact Info) Description 12/24/2024 8:30 AM EDT Office Visit [facility] [address] [place] [address] Ishmael Watts MD [address] [place] [address] documented as of this encounter Procedures Procedure Name Priority Date/Time Associated Diagnosis Comments VASC US UPPER EXTREMITY VENOUS DUPLEX LEFT 08/10/2023 2:09 PM EDT documented in this encounter Results * Vascular US upper extremity venous duplex left (08/10/2023 2:09 PM EDT) Anatomical Region Laterality Modality Upper Extremities Ultrasound 08/10/2023 2:09 PM EDT Narrative 08/10/2023 3:07 PM EDT Interpreted By: Maciej Ramos, STUDY: [facility] US UPPER EXTREMITY VENOUS DUPLEX LEFT; 08/10/2023 2:47 pm INDICATION: Signs/Symptoms: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 COMPARISON: Portable chest 05 August 2023 ACCESSION NUMBER(S): [id number] ORDERING CLINICIAN: NAIMA ANDRES TECHNIQUE: Vascular ultrasound [...] Maciej Ramos 08/10/2023 3:07 PM Dictation workstation: [id number] Procedure Note Radiology, Radiologist, - 08/10/2023 Interpreted By: Maciej Ramos, STUDY: [facility] US UPPER EXTREMITY VENOUS DUPLEX LEFT; 08/10/2023 2:47 pm INDICATION: Signs/Symptoms: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 COMPARISON: Portable chest 05 August 2023 ACCESSION NUMBER(S): [id number] ORDERING CLINICIAN: NAIMA ANDRES TECHNIQUE: Vascular ultrasound [...] Maciej Ramos 08/10/2023 3:07 PM Dictation workstation: [id number] us Generic External Data Provider IMG US PROCEDURES Final Result documented in this encounter Visit Diagnoses Not on filedocumented in this encounter Care Teams Ranger Aide Relationship Specialty Start Date End Date Ishmael Watts MD PCP - General Family Medicine 04/12/23 10/09/23 Ishmael Watts MD [address] [place] [address] PCP - General Family Medicine 10/10/23 documented as of this encounter
--- OUTSIDE RECORDS SUMMARY | 2024-10-23 10:36 | XMS_ITS | Encounter Summary ---
Author Organization [employer] [address] [employer] Address [id number] [address] [place] [address] Care Team Providers Care Confectionery Drops Machine Operator Name Role Phone Ishmael Watts MD Primary Care Provider Encounter Details Date Type Department Care Team (Late st Contact Info) Description 10/08/2021 Orders Only [facility] [address] [place] [address] External, Scanning Provider Social History Tobacco Use [...] was confirmed or suspected to have Coronavirus/COVID-19? Yes 10/08/2021 8:17 AM EDT documented as of this encounter Plan of Treatment Not on file documented as of this encounter Procedures Procedure Name Priority Date/Time Associated Diagnosis Comments NUC STRESS LEXISCAN/EXERCISE Routine 09/07/2021 documented in this encounter Results * Nuc stress Lexiscan/Exercise (09/07/2021) Anatomical Region Laterality Modality Chest N/A Nuclear Medicine us Scanning Provider External CV STRESS ORDERABLES Final Result documented in this encounter Visit Diagnoses Not on filedocumented in this encounter Care Teams Confectionery Drops Machine Operator Relationship Specialty Start Date End Date Ishmael Watts MD PCP - General Family Medicine 08/16/19 documented as of this encounter
--- OUTSIDE RECORDS SUMMARY | 2024-10-23 10:36 | XMS_ITS | Encounter Summary ---
Author Organization [facility] Address [address] [place] [address] Care Team Providers Care Social Media Project Manager Name Role Phone Ishmael Watts MD Primary Care Provider [phone] Encounter Details Date Type Department Care Team (Late st Contact Info) Description 05/10/2024 Orders Only [facility] [address] [place] [address] Ishmael Watts MD [address] [place] [address] Social History Tobacco Use Types Packs/Day Years [...] often do you attend chur ch or mandaen services? Patient declined 10/09/2023 Do you belong to any clubs o r organizations such as buddhism groups, unions, fraternal or athletic groups, or [...] Recorded Patient Health Questionnaire-2 Score 0 04/24/2024 [facility] of Occupat ional Health - Occupational Stress [...] Office Visit [facility] [address] [place] [address] Ishmael Watts MD [address] [place] [address] documented as of this encounter Procedures Procedure Name Priority Date/Time Associated Diagnosis Comments DIABETES EYE EXAM Routine 05/10/2024 1:42 PM EST documented in this encounter Results * Diabetes Eye Exam (05/10/2024 1:42 PM EST) Ishmael Watts MD HEALTH MAINTENANCE Final Result documented in this encounter Visit Diagnoses Not on filedocumented in this encounter Additional Health Concerns Assessment Noted Time PHQ-9 Depression Total Score: 4 04/24/20 24 11:00 AM EST documented as of this encounter Care Teams Social Media Project Manager Relationship Specialty Start Date End Date Ishmael Watts MD [address] [place] [address] PCP - General Family Medicine 10/10/23 documented as of this encounter
[2024-10-23 10:54] LABS: Basophils Absolute Auto 0.1 10^3/uL (0.0-0.1); Eosinophils Absolute Auto 0.3 10^3/uL (0.0-0.7); Eosinophils Percent Auto 3.4 % (0.9-7.0); Hematocrit 47.4 % (42.0-54.0); Hemoglobin 16.1 g/dL (14.0-18.0); Immature Granulocytes Abs Auto 0.05 10^3/uL (0.00-0.03); Immature Granulocytes Pct Auto 0.6 % (0.0-0.5); Lymphocytes Percent Auto 22.8 % (20.5-60.0); Mean Corpuscular Hemoglobin 30.7 pg (25.9-34.0); Mean Corpuscular Volume 90.3 fL (80.0-94.0); Mean Platelet Volume 10.3 fL (9.5-13.5); Monocytes Absolute Auto 0.7 10^3/uL (0.3-0.8); Monocytes Percent Auto 7.7 % (1.7-12.0); Neutrophils Absolute Auto 5.6 10^3/uL (1.4-6.5); Neutrophils Percent Auto 64.5 % (43.0-75.0); Platelet Count 259 10^3/uL (150-450); Red Blood Count 5.25 10^6/uL (4.70-6.10); Red Cell Distribution Width 12.2 % (11.0-15.0); White Blood Count 8.7 10^3/uL (4.0-11.0)
[2024-10-23 11:34] LABS: Estimated Average Glucose 154 mg/dL
[2024-10-23 11:43] LABS: Alanine Aminotransferase 39 U/L (16-63); Albumin Globulin Ratio 1.2; Albumin Level 3.7 g/dL (3.4-5.0); Alkaline Phosphatase 112 U/L (46-116); Anion Gap 9.1; Aspartate Amino Transferase 22 U/L (15-37); BUN Creatinine Ratio 14.4; Bilirubin Direct 0.1 mg/dL (0.0-0.2); Bilirubin Total 0.5 mg/dL (0.2-1.0); Calcium 9.5 mg/dL (8.5-10.1); Carbon Dioxide 33.7 mmol/L (21.0-32.0); Chloride 100 mmol/L (98-107); Chol HDL Ratio 4.7; Cholesterol 192 mg/dL (<=200); Estimated GFR (African America >60 (>=60 mL/min/1.73m^2); Estimated GFR (Non-African Ame >60 (>=60 mL/min/1.73m^2); Globulin 3.2 g/dL; Glucose 156 mg/dL (74-106); HDL Cholesterol 41 mg/dL (40-60); Potassium 3.8 mmol/L (3.5-5.1); Sodium 139 mmol/L (136-145); Thyroid Stimulating Hormone 1.409 uIU/mL (0.358-3.740); Total Protein 6.9 g/dL (6.4-8.2); Triglycerides 256 mg/dL (<=150); VLDL CHOLESTEROL 51.2 mg/dL
[2024-10-23 11:53] LABS: Prostate Specific Antigen Scrn 0.86 ng/mL (<=4.00)
== END 2024-10-23 10:31 | disposition home or self-care (01) ==
LOC: LAB 10:31
PROVIDERS: PCP Family Medicine; Visit Provider Family Medicine
DX: E11.65 Type 2 diabetes mellitus with hyperglycemia (principal); I10 Essential (primary) hypertension; Z79.899 Other long term (current) drug therapy; E78.5 Hyperlipidemia, unspecified; Z12.5 Encounter for screening for malignant neoplasm of prostate; E66.812 Obesity, class 2; E66.01 Morbid (severe) obesity due to excess calories; Z68.39 Body mass index [BMI] 39.0-39.9, adult
CPT/HCPCS: 36415; 80048; 80061; 80076; 82306; 83036; 84443; 85025; G0103

== ENCOUNTER 2024-11-05 14:42 | Outpatient (OUT) | payer MEDICARE, SELFPAY ==
--- OUTSIDE RECORDS SUMMARY | 2024-05-28 05:40 | XMS_ITS ---
Author Organization [facility] Address [address] [place] [address] Care Team Providers Care Technical Support Manager Name Role Phone Ishmael Watts Primary Care Provider Laurent [facility] [phone] REASON FOR VISIT RIGHT SHOULDER SPRAIN Encounters Encounter Location Date Provider Diagnosis [facility] [address] [address] [place] [address] 05/28/2024 Laurent Curry Plan Of Treatment No Information Progress Notes * LILIANA MICHAELS JRDOB:1964 (59 yo M)Acc No.[id number]:05/28/2024 Patient: Mingo LILIANA SALEEM JR Provider: Fransico Curry MD :1965 A ge:59 Y S ex:Male Date:05/28/2024 Address:[address] [place], [place] [id number] Pcp:Ishmael Watts Subjective: * Chief Complaints: * 1 . RIGHT SHOULDER SPRAIN. * Medical History: Objective: * Vitals: Assessment: Plan: * Treatment: Forms: * Images: * Electronic signature of Thomas Curry MD on 11/05/2024 at 02:45 PM EDT Sign off status: Pending * Provider: Fransico Curry MD Date: 0 05/28/2024 Generated for Rashmi hackett/Jori/eTwillissmitting on: 0 11/05/2024 02:45 PM EDT
--- OUTSIDE RECORDS SUMMARY | 2024-06-04 04:32 | XMS_ITS ---
Author Organization [facility] [place] Address [address] [place] [address] Care Team Providers Care Roll Skinner Name Role Phone Ishmeal Watts MD Primary Care Provider Unavailab dickerson Gilbert Li Unavailable [phone] REASON FOR VISIT Trelegy Encounters Encounter Location Date Provider Diagnosis Pul[facility] [place] [address] [place] [address] 06/04/2024 Gilbert iL Plan Of Treatment Next Appt Details Provider Name:Gilbert Li, 08/07/2025 08:00:00 AM, [address] [place], [address], Progress Notes * Abhishek MICHAELS JrDOB:1964 (59 yo M)Acc No.[id number]:06/04/2024 Patient: Abhishek CURIEL Jr :1965 A ge:59 Y S ex:Male Address:[address] [place] [phone] * true * Date: Generated for Rashmi hackett/Fanicki/eTransmitting on: 0 11/05/2024 02:44 PM EDT
--- OUTSIDE RECORDS SUMMARY | 2024-08-07 04:00 | XMS_ITS ---
Author Organization [facility] [place] Address [address] [place] [address] Care Team Providers Care System Developer Associate Manager Name Role Phone Ishmael Watts MD Primary Care Provider Bud Gilbert Mo Unavailable [phone] Allergies No Known Allergies Results Component Value Reference Range Notes CT Chest Low Dose for Screen ing* Reviewed date:08/09/2024 02:13:12 PM Interpretation: Performing Lab: Notes/Report: REASON FOR VISIT 1YEAR-COPD, O2 Medications Medication SIG (Take, Route, Frequency, Duration) Notes Start Date End Date Status Spironolactone 100 MG 1 tablet Orally Daily Active Montelukast Sodium 10 MG 1 tablet Orally QD for 90 days Active Lyrica 100 MG 1 capsule Orally Onc e a day Active Nabumetone 500 MG 1 tablet Orally Twic e a day Active oxyCODONE-Acetaminophen 7.5-325 MG 1 tablet Orally 4 times daily Active Omeprazole 40 MG 1 capsule Orally Daily Active Baclofen 10 MG Oral for 90 Days Active Ventolin HFA 108 (90 Base) MCG/ACT 2 puffs as needed for SOB Inhalation Q4H for 90 days Active Trelegy Ellipta 100-62.5-25 MCG/ACT 1 puff Inhalation QD for 90 days Rinse after use Active Furosemide 40 MG 1 tablet Orally two times daily Active Cetirizine HCl 10 MG 1 tablet Orally Daily Active Aspirin 81 MG 1 tablet Orally Once a day Active Social History Tobacco Use: Social History Observation Description Date Details (start date - stop date) Current Smoker NA - NA Tobacco Control (Standard) Question Answer Notes Tobacco use: Current every day smoker Additional Findings: Tobacco user Light cigarett e smoker (1-9 cigs/day) Problems Problem Type SNOMED Code ICD Code Onset Dates Problem Status W/U Status Risk Notes Problem HTN (hypertensio n) (I10) Active confirmed Vital Signs Weight 221.2 lbs 08/07/2024 Height 64 in 08/07/2024 Blood pressure systolic 150 mm Hg 08/08/19 25 Blood pressure diastolic 87 mm Hg 025 Temperature 96.9 degrees Fahrenheit 08/08/19 25 Heart Rate 80 /min 08/07/2024 Respiratory Rate 18 /min 08/07/2024 BMI 37.96 kg/m2 08/07/2024 Oximetry 94 % 08/07/2024 Encounters Encounter Location Date Provider Diagnosis Pulmonary Medicine [facility] [address] [place] [address] 08/07/2024 Gilbert Li Chronic obstructive pulmonary disease J44.9 ; Chronic respiratory failure with hypoxia J96.11 ; Cigarette nicotine dependence with nicotine-induced disorder F17.219 ; Obstructive sleep apnea (adult) (pediatric) G47.33 ; Nasal polyps J33.9 ; Encounter for screening for malignant neoplasm of respiratory organs Z12.2 ; Diabetes mellitus type 2, controlled E11.9 ; group home (current) use of inhaled steroids Z79.51 and Obesity, unspecified E66.9 Assessments Encounter Date Diagnosis (ICD Code) Assessment Notes Treatment Notes Treatment Clinical Notes Section Notes 08/07/2024 Chronic obstructive pulmonary disease (ICD-10 - J44.9) With exception of exacerbation 05/27/2024, he has been doing well over the last year with Trelegy, reporting rare albuterol use. He voices he does not require any additional treatment. If he were to need something, the next step would be to add Ohtuvayre. He was previously on Dupixent and could not tolerate questionable associated headaches with it. Plan is to continue the current treatments. F/U 1 year, or sooner PRN. 08/07/2024 Chronic respiratory failure with hypoxia (ICD-10 - J96.11) Cjrk-fg-zebp encounter performed with the patient to document continued need for supplemental oxygen (O2).-Flow & directions: 2L/min O2 @ HS -Patient voices adherence to recommended usage: Yes-Counseled patient not begin, restart, or continue smoking, around the O2 due to risk of fire which could result in damage to the O2 tanks & lines, smoke inhalation and flame damage to the airway, significant andrews, potential , property damage, and potential harm & to bystanders. Additionally, counseled it is not [place] to begin, restart, or continue smoking given the underlying pulmonary disease that led to the point of requiring O2.-Recommendations : He continues to use O2 @ HS. Mild exacerbation 05/27/2024 with temporary hypoxia @ rest, but he rapidly recovered. Continue 2L/min O2 @ HS. 08/07/2024 Cigarette nicotine dependence with nicotine-induce d disorder (ICD-10 - F17.219) 1.5ppd x 40+ years (60+ pack-year history) Discussed smoking cessation again. He continues to smoke ~6 cigarettes a day and states this is better than his 1.5ppd he was at in the past. I acknowledged his improvement, but he was counseled that 1 cigarette is 1 too many. He states he has arthritis, so keeping his hands busy with other tasks can be cumbersome or painful. Patient was encouraged to stop. Patient's last LDCT was 07/15/2022 - unclear why not done last year - discussed restarting LDCT screening, which he voiced agreement. Ordering LDCT, will contact him with results (unless we find something completely abnormal) - history of ~7mm nodule in the past. 08/07/2024 Obstructive sleep apnea (adult) (pediatric) (ICD-10 - G47.33) PSG 01/17/2019: AHI 104 BiPAP titration 02/05/2019: 25/ Patient failed BiPAP. 08/07/2024 Nasal polyps (ICD-10 - J33.9) Previously on Dupixent, but claimed he had tension-type posterior neck headache that returned on rechallenge. He has not seen ENT - he states no one is going to operate on them - it's too sensitive. If he wants any additional treatment for the polyps, he needs to go to ENT. 08/07/2024 Encounter for screening for malignant neoplasm of respiratory organs (ICD-10 - Z12.2) Low-dose CT (LDCT) was recommended for lung cancer screening. The patient meets criteria including age 50-77, a smoking history of at least 20 pack-years, is currently smoking or has ceased smoking within the past 15 years, and has no signs or symptoms of lung cancer. Shared decision making performed with the patient. After LDCT has been completed, will review report and/or imaging and provide appropriate recommendations for the patient, including additional follow up if needed. Patient was counseled on smoking cessation/continued tobacco abstinence. 08/07/2024 Diabetes mellitus type 2, controlled (ICD-10 - E11.9) Steroids prescribed for this patient's underlying pulmonary disease can adversely affect blood glucose levels, inducing hyperglycemia and worsening underlying diabetes. The patient is encouraged to follow up with the primary care provider to create a plan to manage diabetes in this situation. 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 08/07/2024 Obesity, unspecified (ICD-10 - E66.9) Patient's weight is inducing a restrictive pulmonary physiology. Weight loss indicated: Decrease calories, increase activity. 08/07/2024 Other Has LUE US today. Plan Of Treatment Medication Medication Name Sig Start Date Stop Date Notes Montelukast Sodium 10 MG 1 tablet Orally QD for 90 days Ventolin HFA 108 (90 Base) MCG/ACT 2 puffs as needed for SOB Inhalation Q4H for 90 days Trelegy Ellipta 100-62.5-25 MCG/ACT 1 puff Inhalation QD for 90 days Treatment Notes Assessment Notes Chronic obstructive pulmonary disease With exception of exacerbation 05/27/2024, he has been doing well over the last year with Trelegy, reporting rare albuterol use. He voices he does not require any additional treatment. If he were to need something, the next step would be to add Ohtuvayre. He was previously on Dupixent and could not tolerate questionable associated headaches with it. Plan is to continue the current treatments. F/U 1 year, or sooner PRN. Chronic respiratory failure with hypoxia Zlpe-ie-ohsp encounter performed with the patient to document continued need for supplemental oxygen (O2).-Flow & directions: 2L/min O2 @ HS -Patient voices adherence to recommended usage: Yes-Counseled patient not begin, restart, or continue smoking, around the O2 due to risk of fire which could result in damage to the O2 tanks & lines, smoke inhalation and flame damage to the airway, significant andrews, potential , property damage, and potential harm & to bystanders. Additionally, counseled it is not [place] to begin, restart, or continue smoking given the underlying pulmonary disease that led to the point of requiring O2.-Recommendations: He continues to use O2 @ HS. Mild exacerbation 05/27/2024 with temporary hypoxia @ rest, but he rapidly recovered. Continue 2L/min O2 @ HS. Cigarette nicotine dependenc e with nicotine-induced disorder 1.5ppd x 40+ years (60+ pack-year history) Discussed smoking cessation again. He continues to smoke ~6 cigarettes a day and states this is better than his 1.5ppd he was at in the past. I acknowledged his improvement, but he was counseled that 1 cigarette is 1 too many. He states he has arthritis, so keeping his hands busy with other tasks can be cumbersome or painful. Patient was encouraged to stop. Patient's last LDCT was 07/15/2022 - unclear why not done last year - discussed restarting LDCT screening, which he voiced agreement. Ordering LDCT, will contact him with results (unless we find something completely abnormal) - history of ~7mm nodule in the past. Obstructive sleep apnea (ying lt) (pediatric) PSG 01/17/2019: AHI 104 BiPAP titration 02/05/2019: 25 Patient failed BiPAP. Nasal polyps Previously on Dupixent, but claimed he had tension-type posterior neck headache that returned on rechallenge. He has not seen ENT - he states no one is going to operate on them - it's too sensitive. If he wants any additional treatment for the polyps, he needs to go to ENT. Encounter for screening for malignant neoplasm of respiratory organs Low-dose CT (LDCT) was recommended for lung cancer screening. The patient meets criteria including age 50-77, a smoking history of at least 20 pack-years, is currently smoking or has ceased smoking within the past 15 years, and has no signs or symptoms of lung cancer. Shared decision making performed with the patient. After LDCT has been completed, will review report and/or imaging and provide appropriate recommendations for the patient, including additional follow up if needed. Patient was counseled on smoking cessation/continued tobacco abstinence. Diabetes mellitus type 2, controlled Steroids prescribed for this patient's underlying pulmonary disease can adversely affect blood glucose levels, inducing hyperglycemia and worsening underlying diabetes. The patient is encouraged to follow up with the primary care provider to create a plan to manage diabetes in this situation. group home (current) use of i nhaled steroids Patient was counseled to rinse & gargle with water after inhaled corticosteroid use. Obesity, unspecified Patient's weight is inducing a restrictive pulmonary physiology. Weight loss indicated: Decrease calories, increase activity. Other Has LUE US today. Next Appt Details Follow Up: 1 Year, Reason: C OPD, O2 Provider Name:Gilbert Li, 08/07/2025 08:00:00 AM, [address] [place], [address], Procedure Notes * Category Sub-Category Detail Notes PFT Data: 07/07/2018-FEV1/ FVC: 94%-FEV1: 59%-FVC: 62%-ZUX11-52%: 57% -Bronchodilator response: Partial -RV: 126%-T%-DLCO: 77%-Flow-volume loop: Sawtoothing Alpha-1 Antitrypsin Screening Date: 04/14/2021 Genotype: M/M Progress Notes * Abhishek MICHAELS JrDOB:1964 (59 yo M)Acc No.[id number]:08/07/2024 Follow Up Patient: Mingo SALEEMAbhishek Jr Provider: Imelda Li DO :1965 A ge:59 Y S ex:Male Date:08/07/2024 Address:[address] [place], [place] [id number] Pcp:Ishmael Watts MD Check In:07:56 AM ESTCheck O ut:08:29 AM EST Subjective: * Chief Complaints: * 1 YEAR-COPD, O2 * HPI: G eneral: Patient was doing well up until ~05/27/2024 when he was admitted overnight for AECOPD and acute hypoxic respiratory failure. He recovered well and was discharged home. Since then, he states his breathing has actually improved slightly. He remains on Trelegy and Singulair - previously did not tolerate Dupixent secondary to headaches. He reports very rare albuterol use - none since his exacerbation. Only adverse effect reported from Trelegy is mild dry mouth. Despite this exacerbation, he continues to smoke ~6 cigarettes/day. MA Intake Comments:. Patient presents for a follow-up for COPD. Patient reports being hospitalized at [facility] on 05/27/2024 for COPD Exacerbation. Patient admits to smoking 6 cigarettes per day. Patient is currently on 2L O2 at . DME: [facility]. Patient denies any complaints with his breathing today. Patient reports ongoing nasal congestion. Patient is currently using Trelegy daily. Patient reports rare albuterol use. Patient is under care of [facility]. * ROS: G eneral/Constitutional: Fever or sweats d enies. C hange of appetite d enies. C hills d enies. W eight Change d enies. H EENT: Dry mouth m ild. S ore throat d enies. O ral Ulcers d enies. P ost Nasal Drip c hronic drainage. C ongestion D enies. H oarseness D enies. C ardiovascular: Tachycardia d enies. C hest pain d enies. P alpitations d enies. R espiratory: Chest tightness d enies. P leurisy D enies. D yspnea d enies. C ough p roductive, clear - daily. H emoptysis d enies. W heezing d enies. G astrointestinal: Acid Reflux/GERD/Heartburn d enies. D ysphagia d enies. M usculoskeletal: Arthralgias/joint pain f ingers/hands, right hip. S kin: Easy bruising d enies. R melissa d enies. ? N eurologic: Seizures d enies. T remor d enies. H ematology: Abnormal Bleeding d enies. P sychiatric: Anxiety d enies. * Active Problem List I50.32 Chronic diastolic (c ongestive) heart failure Modified On:08/10/2023W/U Status:confirmed J96.11 Chronic respiratory failure with hypoxia Modified On:08/10/2023W/U Status:confirmed J44.9 Chronic obstructive pulmonary disease Modified On:08/10/2023 Status:confirmed I10 HTN (hypertension) Modified On:08/07/2024 Status:confirmed J33.9 Nasal polyps Modified On:08/10/2023 Status:confirmed E11.9 Diabetes mellitus ty pe 2, controlled Modified On:08/10/2023 Status:confirmed J30.9 Acute allergic rhini tis, unspecified seasonality, unspecified trigger Modified On:07/15/2022 Status:confirmed J44.9 Chronic obstructive pulmonary disease, unspecified COPD type Modified On:07/15/2022 Status:confirmed J33.9 Nasal polyposis Modified On:07/15/2022 Status:confirmed J31.0 Chronic rhinitis Modified On:07/15/2022 Status:confirmed G47.33 Obstructive sleep ap manjinder (adult) (pediatric) Modified On:08/10/2023isk:HighW/U Status:confirmed F17.219 Cigarette nicotine d ependence with nicotine-induced disorder Modified On:08/10/2023 Status:confirmed Z86.16 History of COVID-19 Modified On:08/12/2022 Status:confirmed 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 * Social History: T obacco Use: T obacco Control (Standard) T obacco use: C urrent every day smoker A dditional Findings: Tobacco user L ight cigarette smoker (1-9 cigs/day) Electronic Cigarette use C urrent user N o LM: Additional Tobacco Questions N umber of Years Pt Smoked: 3 8 ; Began age ~19 N umber of Packs per Day: 1 .5 = 57 pack-year history (08/12/2022) M iscellaneous: O ccupation O ccupation: R etired [employer] Pets: none. D rugs/Alcohol: D rugs H ave you used drugs other than those for medical reasons in the past 12 months? N o D oes the Patient have a History of Drug Abuse in the Past? N o Caffeine I ntake: n one Do you drink alcohol?: Yes, Daily. Do you smoke marijuana?: Denies. * Medications: T akingAspirin 81 MG Tablet Delayed Release 1 tablet Orally Once a day Baclofen 10 MG Tablet Oral Cetirizine HCl 10 MG Tablet 1 tablet Orally Daily Furosemide 40 MG Tablet 1 tablet Orally two times daily Lyrica(Pregabalin) 100 MG Capsule 1 capsule Orally Once a day Montelukast Sodium 10 MG Tablet 1 tablet Orally QD Nabumetone 500 MG Tablet 1 tablet Orally Twice a day Omeprazole 40 MG Capsule Delayed Release 1 capsule Orally Daily oxyCODONE-Acetaminophen 7.5-325 MG Tablet 1 tablet Orally 4 times daily Spironolactone 100 MG Tablet 1 tablet Orally Daily Trelegy Ellipta(Xmxfeaxpizd-Upwqkkndb-Yocnva) 100-62.5-25 MCG/ACT Aerosol Powder Breath Activated 1 puff Inhalation QD Rinse after useVentolin HFA(Albuterol Sulfate HFA) 108 (90 Base) MCG/ACT Aerosol Solution 2 puffs as needed Inhalation Q4H PRN SOB Taking Aspirin 81 MG Tablet Delayed Release 1 tablet Orally Once a day Taking Baclofen 10 MG Tablet Oral Taking Cetirizine HCl 10 MG Tablet 1 tablet Orally Daily Taking Furosemide 40 MG Tablet 1 tablet Orally two times daily Taking Lyrica(Pregabalin) 100 MG Capsule 1 capsule Orally Once a day Taking Montelukast Sodium 10 MG Tablet 1 tablet Orally QD Taking Nabumetone 500 MG Tablet 1 tablet Orally Twice a day Taking Omeprazole 40 MG Capsule Delayed Release 1 capsule Orally Daily Taking oxyCODONE-Acetaminophen 7.5-325 MG Tablet 1 tablet Orally 4 times daily Taking Spironolactone 100 MG Tablet 1 tablet Orally Daily Taking Trelegy Ellipta(Xeroorlnmba-Almcwnesn-Iawqed) 100-62.5-25 MCG/ACT Aerosol Powder Breath Activated 1 puff Inhalation QD Rinse after useTaking Ventolin HFA(Albuterol Sulfate HFA) 108 (90 Base) MCG/ACT Aerosol Solution 2 puffs as needed Inhalation Q4H PRN SOB DiscontinuedAldactone(Spironolactone) 100 MG Tablet 1 tablet Orally Once a day Cholecalciferol 50 MCG (1999 UT) Tablet 1 tablet Orally Daily Gabapentin 300 MG Capsule 1 capsule Orally at bedtime Triamcinolone Acetonide 0.5 % Cream 1 application Externally three times daily Medication List reviewed and reconciled with the patientDiscontinued Aldactone(Spironolactone) 100 MG Tablet 1 tablet Orally Once a day Discontinued Cholecalciferol 50 MCG (1999 UT) Tablet 1 tablet Orally Daily Discontinued Gabapentin 300 MG Capsule 1 capsule Orally at bedtime Discontinued Triamcinolone Acetonide 0.5 % Cream 1 application Externally three times daily Medication List reviewed and reconciled with the patient * Allergies: N .K.D.A.no[Allergies Verified] Objective: * Vitals: W t:221.2lbs, Ht: 64 in, BP:sittin/87mm Hg, Temp:Forehead:96.9F, HR:80/min, RR:18/min, BMI:37.96Index, Oxygen sat %:Room Air:94%, Ht-cm: 162.56 cm, Wt-k.34 kg. * Examination: E xam: GENERAL APPEARANCE: A ppears stated age. Skin N ormal. Nose B ilateral polyps. Mouth P ink and moist, N o candidiasis. Oropharynx M allampati Class IV. Trachea M idline. Chest N ormal. Respiratory Normal M ovements, E ffort N ormal. Auscultation D iminished breath sounds. Rhonchi which cleared with rodríguez cough. No wheezes today. Cardiac R egular rate and rhythm. Gastrointestinal N ormal. Vascular N o edema. Musculoskeletal N ormal posture. Neurological F ocal, intact. Psychiatric A lert and oriented x3. Mentation/Cognition N ormal. Assessment: * Assessment: 1. C hronic obstructive pulmonary disease - J44.9 (Primary) 2 . C hronic respiratory failure with hypoxia - J96.11 3 . C igarette nicotine dependence with nicotine-induced disorder - F17.219 4 . O bstructive sleep apnea (adult) (pediatric) - G47.33 5 . N salvador polyps - J33.9 6 . E ncounter for screening for malignant neoplasm of respiratory organs - Z12.2 7 . D iabetes mellitus type 2, controlled - E11.9 8 . L conchis term (current) use of inhaled steroids - Z79.51 9 . O besity, unspecified - E66.9 Plan: * Treatment: 2. C hronic respiratory failure with hypoxia Notes: Ullq-pf-zsqq encounter performed with the patient to document continued need for supplemental oxygen (O2).-Flow & directions: 2L/min O2 @ HS -Patient voices adherence to recommended usage: Yes-Counseled patient not begin, restart, or continue smoking, around the O2 due to risk of fire which could result in damage to the O2 tanks & lines, smoke inhalation and flame damage to the airway, significant andrews, potential , property damage, and potential harm & to bystanders. Additionally, counseled it is not [place] to begin, restart, or continue smoking given the underlying pulmonary disease that led to the point of requiring O2.-Recommendations: He continues to use O2 @ HS. Mild exacerbation 05/27/2024 with temporary hypoxia @ rest, but he rapidly recovered. Continue 2L/min O2 @ HS. 3. C igarette nicotine dependence with nicotine-induced disorder I maging: CT Chest Low Dose for Screening* Notes: 1.5ppd x 40+ years (60+ pack-year history) Discussed smoking cessation again. He continues to smoke ~6 cigarettes a day and states this is better than his 1.5ppd he was at in the past. I acknowledged his improvement, but he was counseled that 1 cigarette is 1 too many. He states he has arthritis, so keeping his hands busy with other tasks can be cumbersome or painful. Patient was encouraged to stop. Patient's last LDCT was 07/15/2022 - unclear why not done last year - discussed restarting LDCT screening, which he voiced agreement. Ordering LDCT, will contact him with results (unless we find something completely abnormal) - history of ~7mm nodule in the past. 4. O bstructive sleep apnea (adult) (pediatric) Notes: PSG 01/17/2019: AHI 104 BiPAP titration 02/05/2019: Patient failed BiPAP. 5. N salvador polyps Continue Montelukast Sodium Tablet, 10 MG, 1 tablet, Orally, QD, 90 days, 90 Tablet, Refills 4.? Notes: Previously on Dupixent, but claimed he had tension-type posterior neck headache that returned on rechallenge. He has not seen ENT - he states no one is going to operate on them - it's too sensitive. If he wants any additional treatment for the polyps, he needs to go to ENT. 6. E ncounter for screening for malignant neoplasm of respiratory organs I maging: CT Chest Low Dose for Screening* Notes: Low-dose CT (LDCT) was recommended for lung cancer screening. The patient meets criteria including age 50-77, a smoking history of at least 20 pack-years, is currently smoking or has ceased smoking within the past 15 years, and has no signs or symptoms of lung cancer. Shared decision making performed with the patient. After LDCT has been completed, will review report and/or imaging and provide appropriate recommendations for the patient, including additional follow up if needed. Patient was counseled on smoking cessation/continued tobacco abstinence. 7. D iabetes mellitus type 2, controlled Notes: Steroids prescribed for this patient's underlying pulmonary disease can adversely affect blood glucose levels, inducing hyperglycemia and worsening underlying diabetes. The patient is encouraged to follow up with the primary care provider to create a plan to manage diabetes in this situation. ? 8. L conchis term (current) use of inhaled steroids Notes: Patient was counseled to rinse & gargle with water after inhaled corticosteroid use. 9. O besity, unspecified Notes: Patient's weight is inducing a restrictive pulmonary physiology. Weight loss indicated: Decrease calories, increase activity. 10. O thers Notes: Has LUE US today. * Procedures: A lpha-1 Antitrypsin: Screening Date: 06/15/2020. Genotype: M /M. P FT: Data: 0 07/07/2018 -FEV1/FVC: 94% -FEV1: 59% -FVC: 62% -SMQ87-70%: 57% -Bronchodilator response: Partial -RV: 126% -T% -DLCO: 77% -Flow-volume loop: Sawtoothing. * Procedure Codes: * Preventive Medicine: COVID Vaccination: H as patient had COVID Vaccination? COVID Vaccination N o Patient Declined Immunization Status: P neumovacc P t Refused. I nfluenza P t Refused. Screenings/Counseling: T OBACCO ACTION PLAN Patient counselled on the dangers of tobacco use and urged to quit. 0 08/07/2024 Cessation counseling provided 0 08/07/2024 F SARAH EXCLUSION Reason: P atient Reason refused/declined Type of Patient Reason: D rug declined by patient B NE ACTION PLAN Above Normal BMI Follow-up D ietary management education, guidance, and counseling * Follow Up: 1 Year (Reason: COPD, O2) * * Sign off status: Completed Visit Status: Lynn HK (Check Out) true * Provider: Imelda Li DO Date: 0 08/07/2024 Generated for Rashmi hackett/Jori/Thuyitting on: 0 11/05/2024 02:45 PM EDT History and Physical Notes * HPI (History of Present Illness) Category Sub-Category Detail Notes Category Not es General Patient present s for a follow-up for COPD. Patient reports being hospitalized at [facility] on 05/27/2024 for COPD Exacerbation. Patient admits to smoking 6 cigarettes per day. Patient is currently on 2L O2 at . DME: [facility]. Patient denies any complaints with his breathing today. Patient reports ongoing nasal congestion. Patient is currently using Trelegy daily. Patient reports rare albuterol use. Patient is under care of [facility]. Examination Category Sub-Category Detail Notes Category Not es Exam GENERAL APPEARANCE: Appears stated age Skin Normal Eyes Ears Nose Bilateral polyps Mouth Theodosia and moist, No c andidiasis Trachea Midline Chest Normal Respiratory Normal Movements, Ef fort Normal Auscultation Diminished breath so unds. Rhonchi which cleared with rodríguez cough. No wheezes today Cardiac Regular rate and rhy thm Gastrointestinal Normal Vascular No edema Musculoskeletal Normal posture Neurological Focal, intact Psychiatric Alert and oriented x 3 Mentation/Cognition Normal Oropharynx Mallampati Class IV
--- OUTSIDE RECORDS SUMMARY | 2024-08-09 07:02 | XMS_ITS ---
Author Organization The [facility] in [place] Address [address] [place] [address] Care Team Providers Care Data Integrity Consultant Name Role Phone Ishmael Watts MD Primary Care Provider Unavail Gilbert Mo Unavailable [phone] REASON FOR VISIT LDCT Results Encounters Encounter Location Date Provider Diagnosis Pulmonary Medicine [place] [address] [place] [address] 08/09/2024 Gilbert Li Cigarette nicotine dependence with nicotine-induced disorder F17.219 and Encounter for screening for malignant neoplasm of respiratory organs Z12.2 Assessments Encounter Date Diagnosis (ICD Code) Assessment Notes Treatment Notes Treatment Clinical Notes Section Notes 08/09/2024 Cigarette nicotine dependence with nicotine-induced disorder (ICD-10 - F17.219) 1-1.5ppd x 40+ years (40-60 pack-year history) 08/09/2024 Encounter for screening for malignant neoplasm of respiratory organs (ICD-10 - Z12.2) Plan Of Treatment Future Test Test Name Order Date CT Chest Low Dose for Screening* 026 Next Appt Details Provider Name:Gilbert Li, 08/07/2025 08:00:00 AM, [address] [place], [address], Progress Notes * Abhishek MICHAELS JrDOB:1964 (59 yo M)Acc No.[id number]:08/09/2024 Patient: Abhishek CURIEL Jr :1965 A ge:59 Y S ex:Male Address:[address] [place] [id number] Subjective: * Chief Complaints: * L DCT Results * Medical History: * Surgical History: * Hospitalization/Major Diagno stic Procedure: * Medications: Objective: * Vitals: * Physical Examination: Assessment: * Assessment: 1. C igarette nicotine dependence with nicotine-induced disorder - F17.219 (Primary) N otes :1-1.5ppd x 40+ years (40-60 pack-year history) 2 . E ncounter for screening for malignant neoplasm of respiratory organs - Z12.2 Plan: * Treatment: 2. E ncounter for screening for malignant neoplasm of respiratory organs I maging: CT Chest Low Dose for Screening* (Ordered for 08/06/2025) * Procedure Codes: * true * Date: Generated for Rashmi hackett/Jori/Thuyitting on: 0 11/05/2024 02:46 PM EDT
--- OUTSIDE RECORDS SUMMARY | 2024-10-23 09:15 | XMS_ITS | Encounter Summary ---
Author Organization [facility] Address [address] [place] [address] Care Team Providers Care Ballet Soloist Name Role Phone Ishmael Watts MD Primary Care Provider [phone] Reason for Visit * Reason Comments Follow-up 3M Leg Injury SORE ON RIGHT LEG Encounter Details Date Type Department Care Team (Late st Contact Info) Description 10/23/2024 9:15 AM EDT Office Visit [facility] [address] [place] [address] Ishmael Watts MD [address] [place] [address] Type 2 diabetes mellitus with hyperglycemia, without long-term current use of insulin (HCC) (Primary Dx); Essential hypertension, benign ; Degeneration of intervertebral disc of lumbar region with discogenic back pain and lower extremity pain; Primary osteoarthritis of right hip; Chronic obstructive pulmonary disease with acute exacerbation (HCC); Chronic diastolic heart failure (HCC); Class 2 severe obesity due to excess calories with serious comorbidity and body mass index (BMI) of 39.0 to 39.9 in adult ([facility]); Encounter for long-term (current) use of medications; Screening PSA (prostate specific antigen); Vitamin D insufficiency; Dyslipidemia Social History Tobacco Use Types Packs/Day Years Used Date Smoking Tobacco: Every Day Cigarettes 0.5 36 Smokeless Tobacco: Never Alcohol Use Standard Drinks/Week Comments Never 0 (1 standard drink = 0.6 oz pur e alcohol) Social Connection and Isolat ion Panel [NHANES] Answer Date Recorded In a typical week, how many times do you talk on the phone with family, friends, or neighbors? More than three times a week 10/09/2023 Frequency of Social Gatherin gs with Friends and Family Not on file 10/09/2023 How often do you attend chur ch or scientology services? Patient declined 10/09/2023 Do you belong to any clubs o r organizations such as jew groups, unions, fraternal or athletic groups, or school groups? No 10/09/2023 How often do you attend meet ings of the clubs or organizations you belong to? Patient declined 10/09/2023 Are you , , di vorced, , never , or living with a partner? Living with partner 10/09/2023 AUDIT-C Answer Date Recorded Q1: How often do you have a drink containing alcohol? Never 10/09/2023 Q2: How many drinks containi ng alcohol do you have on a typical day when you are drinking? Patient does not drink Q3: How often do you have si x or more drinks on one occasion? Never 10/09/2023 Overall Financial Resource Strain (CARDIA) Answe r Date Recorded How hard is it for you to pa y for the very basics like food, housing, medical care, and heating? Not hard at all 10/09/2023 PHQ-2 Answer Date Recorded Patient Health Questionnaire-2 Score 0 [facility]24/2024 [facility] Answer Date Recorded Do you feel stress - tense, restless, nervous, or anxious, or unable to sleep at night because your mind is troubled all the time - these days? Not at all 10/09/2023 Exercise Vital Sign Answer Date Recorde d On average, how many days pe r week do you engage in moderate to strenuous exercise (like a brisk walk)? 2 days 10/09/2023 On average, how many minutes do you engage in exercise at this level? 10 min 10/09/2023 Hunger Vital Sign Answer Date Recorded Within the past 12 months, y ou worried that your food would run out before you got the money to buy more. Never true 10/09/19 24 Within the past 12 months, t he food you bought just didn't last and you didn't have money to get more. Never true 10/09/2023 PRAPARE - Transportation Answer Date Re corded In the past 12 months, has l ack of transportation kept you from medical appointments or from getting medications? No 06/2023 In the past 12 months, has l ack of transportation kept you from meetings, work, or from getting things needed for daily living? No 10/09/2023 Housing Stability Vital Sign Answer Josue e Recorded In the last 12 months, was t here a time when you were not able to pay the mortgage or rent on time? No 10/09/2023 In the last 12 months, how many places have you lived? 1 10/09/2023 In the last 12 months, was t here a time when you did not have a steady place to sleep or slept in a snf (including now)? No 10/09/2023 Sex and Gender Information Value Date Recorded Sex Assigned at Not on file Legal Sex Male 11:01 PM EDT Gender Identity Not on file Sexual Orientation Not on file documented as of this encounter Last Filed Vital Signs Vital Sign Reading Time Taken Comments Blood Pressure 126/68 10/23/2024 9:20 AM EDT Pulse 88 10/23/2024 9:20 AM EDT Temperature 36.4 C (97.5 F) 10/23/2024 9:20 AM EDT Respiratory Rate 18 10/23/2024 9:20 AM EDT Oxygen Saturation 92% 10/23/2024 9:20 AM EDT Inhaled Oxygen Concentration - - Weight 104 kg (229 lb) 10/23/2024 9:20 AM EDT Height 162.6 cm (5' 4 ) 10/23/2024 9:20 AM EDT Body Mass Index 39.31 10/23/2024 9:20 AM EDT documented in this encounter Progress Notes * Ishmael Watts MD - 10/23/2024 10:05 AM EDTAssociated Problem(s): Type 2 diabetes mellitus with hyperglycemia, without long-term current use of insulin (HCC) Not checking BS and due for A1C. Stick to ADA diet and limit carbs. * Ishmael Watts MD - 10/23/2024 10:05 AM EDTAssociated Problem(s): Primary osteoarthritis of right hip Pain stable and use percocet PRN. Continue home PT exercises. * Ishmael Watts MD - 10/23/2024 10:05 AM EDTAssociated Problem(s): Essential hypertension, benign BP controlled and monitor PRN. * Ishmael Watts MD - 10/23/2024 10:05 AM EDTAssociated Problem(s): DDD (degenerative disc disease), lumbar Pain unchanged and appears to have worsening radicular symptoms. Stopped lyrica due to side effectsand in past did not tolerate zonegran. Try topamax. * Ishmael Watts MD - 10/23/2024 10:04 AM EDTAssociated Problem(s): Class 2 severe obesity due to excess calories with serious comorbidity and body mass index (BMI) of 39.0 to 39.9 in adult ([facility]) Weight loss indicated. * Ishmael Watts MD - 10/23/2024 10:04 AM EDTAssociated Problem(s): Chronic obstructive pulmonary disease (HCC) Symptoms stable and continue trelegy. Use albuterol PRN. Follow up with pulmonology. * Ishmael Watts MD - 10/23/2024 10:04 AM EDTAssociated Problem(s): Chronic diastolic heart failure (HCC) Edema worse with higher dose lyrica and improved after stopping. Continue lasix. * Ishmael Watts MD - 10/23/2024 9:15 AM EDT Images from the original note were not included. Subjective Patient ID: Abhishek Mayen Jr is a 59 y.o. male who presents for Follow-up (3M) and Leg Injury (SORE ON RIGHT LEG). Follow up DM, HTN, edema, back pain, hip pain, and COPD. Patient not doing well today. Not checkingBS away from office and due for A1C. Tries to eat well and stick to ADA diet. Denies signs of elevated BS such as polyuria, polyphagia or polydipsia. Checking BP PRN and typically controlled. BP normal today. Taking medication daily and tolerating without side effects. Back pain stable. Mild pain in low back and across top hips. Increased pain into right inguinal region and right thigh. Pain increased with walking and standing. Pain management concerned coming from back and wants to try device.Last ablation did not helping. Using percocet PRN and helps with pain. Right hip pain stable. Stiffand sore in am but improved once up and moving. Tries to walk and stay active. Tries to perform home PT exercises which help. Edema controlled with medication. Mild swelling at end of day and if on feet a lot. Edema improved in am and with elevation. Uses lasix PRN and helps when needed. COPD stable. Mild SOB with exertion. Occasional cough and sputum. Taking trelegy daily and using albuterol PRN. Symptoms worse with increased humidity. Following with pulmonology. Review of Systems Constitutional: [...] Items Addressed This Visit Essential hypertension, benign BP controlled and monitor PRN. Relevant Orders Basic metabolic panel Chronic diastolic heart failure (HCC) Edema worse with higher dose lyrica and improved after stopping. Continue lasix. Chronic obstructive pulmonary disease (HCC) Symptoms stable and continue trelegy. Use albuterol PRN. Follow up with pulmonology. DDD (degenerative disc disease), lumbar Pain unchanged and appears to have worsening radicular symptoms. Stopped lyrica due to side effectsand in past did not tolerate zonegran. Try topamax. Relevant Medications topiramate (Topamax) 25 MG tablet Dyslipidemia Relevant Orders Lipid panel Type 2 diabetes mellitus with hyperglycemia, without long-term current use of insulin (HCC) - Primary Not checking BS and due for A1C. Stick to ADA diet and limit carbs. Relevant Orders Hemoglobin A1c Vitamin D insufficiency Relevant Orders Vitamin D 25 hydroxy Encounter for long-term (current) use of medications Relevant Orders CBC and differential Hepatic function panel Screening PSA (prostate specific antigen) Relevant Orders PSA Class 2 severe obesity due to excess calories with serious comorbidity and body mass index (BMI) of39.0 to 39.9 in adult ([facility]) Weight loss indicated. Relevant Orders TSH Primary osteoarthritis of right hip Pain stable and use percocet PRN. Continue home PT exercises. documented in this encounter Plan of Treatment Upcoming Encounters Date Type Department Care Team (Late st Contact Info) Description 12/24/2024 8:30 AM EDT Office Visit [facility] [address] [place] [address] Ishmael Watts MD [address] [place] [address] Scheduled Orders Name Type Priority Associated Diagnoses Orde r Schedule Vitamin D 25 hydroxy Lab Routine Vitamin D insufficiency Expected: 10/23/2024 (Approximate), Expires: 10/23/2025 Hemoglobin A1c Lab Routine Type 2 diabetes mellitus with hyperglycemia, without long-term current use of insulin (HCC) Expected: 10/23/2024 (Approximate), Expires: 10/23/2025 Basic metabolic panel Lab Routine Essential hypertension, benign Expected: 10/23/2024 (Approximate), Expires: 10/23/2025 CBC and differential Lab Routine Encounter for long-term (current) use of medications Expected: 10/23/2024 (Approximate), Expires: 10/23/2025 Hepatic function panel Lab Routine Encounter for long-term (current) use of medications Expected: 10/23/2024 (Approximate), Expires: 10/23/2025 Lipid panel Lab Routine Dyslipidemia Expected: 10/23/2024 (Approximate), Expires: 10/23/2025 PSA Lab Routine Screening PSA (prostate specific antigen) Expected: 10/23/2024 (Approximate), Expires: 10/23/2025 TSH Lab Routine Class 2 severe obesity due to excess calories with serious comorbidity and body mass index (BMI) of 39.0 to 39.9 in adult ([facility]) Expected: 10/23/2024 (Approximate), Expires: 10/23/2025 documented as of this encounter Visit Diagnoses Diagnosis Type 2 diabetes mellitus with hyperglycemia, without long-term current use of insulin (HCC)- Primary Essential hypertension, benign Essential hypertension, benign Degeneration of intervertebral disc of lumbar region with discogenic back pain and lower extremity pain Primary osteoarthritis of right hip Chronic obstructive pulmonary disease with acute exacerbation (HCC) Chronic diastolic heart failure (HCC) Chronic diastolic heart failure Class 2 severe obesity due to excess calories with serious comorbidity and body mass index (BMI) of 39.0 to 39.9 in adult ([facility]) Encounter for long-term (current) use of medications Encounter for long-term (current) use of other medications Screening PSA (prostate specific antigen) Special screening for malignant neoplasm of prostate Vitamin D insufficiency Dyslipidemia Other and unspecified hyperlipidemia documented in this encounter Additional Health Concerns Assessment Noted Time PHQ-9 Depression Total Score: 4 04/24/20 24 11:00 AM EST documented as of this encounter Care Teams Ballet Soloist Relationship Specialty Start Date End Date Ishmael Watts MD [address] [place] [address] PCP - General Family Medicine 10/10/23 documented as of this encounter
--- OUTSIDE RECORDS SUMMARY | 2024-11-05 14:45 | XMS_ITS | Encounter Summary ---
Author Organization [facility] Address [address] [place] [address] Phone Care Team Providers Care Sports Medicine Physician Name Role Phone Ishmael Watts MD Primary Care Provider + Ishmael Watts MD Primary Care Provider + Jackelyn Wright FURNACE UNLOADER-SCABBLER Unavailable Unavailable Amador Dickens MD Unavailable [phone] Encounter Details Date Type Department Care Team (Late st Contact Info) Description 04/15/2021 Orders Only [facility] [address] [place] [address] Conversion, Onbase Social History Tobacco Use Types [...] Info) Description 11/28/2024 8:00 AM EDT Appointment [facility] [address] [place] [address] 11/28/2024 8:30 AM EDT Office Visit [facility] [address] [facility] [address] [place] [address] Amador Dickens MD [address] [facility] [address] [place] [address] 05/15/2025 8:40 AM EST Office Visit [address] [place] [address] Patti Ferrer MD 703 [facility] 2, [address] [place] [address] Scheduled Orders Name Type Priority Associated Diagnoses Orde r Schedule OUTSIDE LAB SCAN Lab Ordered: 04/15/2021 documented as of this encounter Visit Diagnoses Not on filedocumented in this encounter Care Teams Sports Medicine Physician Relationship Specialty Start Date End Date Ishmael Watts MD PCP - General 05/09/19 06/28/23 Ishmael Wtats MD [address] [place] [address] PCP - General Family Medicine 06/29/23 Jackelyn Wright, FURNACE UNLOADER-SCABBLER [address] [place] [address] Nurse Practitioner Cardiology 11/07/23 05/16/24 Amador Dickens MD [address] [facility] Medical Office [facility], [address] [place] [address] Stud Setter Electrophysiology 05/17/24 documented as of this encounter
--- OUTSIDE RECORDS SUMMARY | 2024-11-05 14:45 | XMS_ITS | Encounter Summary ---
Author Organization [facility] Address [address] [place] [address] Phone Care Team Providers Care Rig Builder Name Role Phone Ishmael Watts MD Primary Care Provider + Jackelyn Wright APRN-PODIATRIC MEDICINE DOCTOR Unavailable Unavailable Amador Dickens MD Unavailable [phone] Encounter Details Date Type Department Care Team (Late st Contact Info) Description 07/18/2023 Scanned Document [facility] [address] [place] [address] Scanning, Generic Provider Social History Tobacco Use [...] Info) Description 11/28/2024 8:00 AM EDT Appointment [facility] [address] [place] [address] 11/28/2024 8:30 AM EDT Office Visit [facility] [address] [address] Amador Dickens MD [address] [facility] [address] [place] [address] 05/15/2025 8:40 AM EST Office Visit [address] [place] [address] Patti Ferrer MD 703 [facility] 2, [address] [place] [address] documented as of this encounter Visit Diagnoses Not on filedocumented in this encounter Additional Health Concerns Assessment Noted Time A fall risk assessment has been complete d for the patient 07/13/2023 8:32 AM EST documented as of this encounter Care Teams Rig Builder Relationship Specialty Start Date End Date Ishmael Watts MD [address] [place] [address] PCP - General Family Medicine 06/29/23 Jackelyn Wright, ACID LEVELER-PODIATRIC MEDICINE DOCTOR [address] [place] [address] Nurse Practitioner Cardiology 11/07/23 05/16/24 Amador Dickens MD [address] [facility] Medical Office [facility], [address] [place] [address] Rn Shift Mgr Electrophysiology 05/17/24 documented as of this encounter
--- OUTSIDE RECORDS SUMMARY | 2024-11-05 14:45 | XMS_ITS | Encounter Summary ---
Author Organization [facility] Address [address] [place] [address] Care Team Providers Care Scale Assembly Set Up Worker Name Role Phone Seun Simon MD Primary Care Provider [phone] Encounter Details Date Type Department Care Team (Late st Contact Info) Description 10/11/2023 Clinisync Result Encounter [facility] External Department Unsolicited Seun Simon MD [address] [place] [address] Social History Tobacco Use Types Packs/Day Years [...] often do you attend chur ch or episcopalian services? Patient declined 10/09/2023 Do you belong to any clubs o r organizations such as judaism groups, unions, fraternal or athletic groups, or [...] and heating? Not hard at all 10/09/2023 [facility] of Occupat ional Health - Occupational Stress [...] 8:30 AM EDT Office Visit [facility] [address] [place] [address] Seun Simon MD [address] [place] [address] documented as of this encounter Procedures Procedure Name Priority Date/Time Associated Diagnosis Comments XR SHOULDER 2+ VIEWS BILATERAL 10/11/2023 11:34 AM EDT documented in this encounter Results * XR shoulder 2+ views bilateral (10/11/2023 11:34 AM EDT) Anatomical Region Laterality Modality Upper Extremities, Shoulder Bilateral Radi ographic Imaging 10/11/2023 11:3 4 AM EDT Narrative 10/11/2023 11:37 AM EDT [address] [address] XRay Report Signed Patient: LILIANA MICHAELS MR#: [id number] : 1965 Acct:[id number] Age/Sex: 58 / M ADM Date: 10/10/23 Loc: LAB Attending Dr: Seun Simon M.D. Ordering Physician: Seun Simon M.D. Date of Service: 10/10/23 Procedure(s): XR shoulder KRISTOPHER min 2V Accession Number(s): [id number] cc: Seun Simon M.D. [address] [address] Patient Name: LILIANA MICHAELS MRN: [id number] date: 1965 Sex: M Assigned Patient Location: LAB Current Patient Location: Accession/Order Number: [id number] Exam Date: 10/10/2023 12:45 Report Date: 10/11/2023 [...] Signed By: 10/11/23 1137 DD/ 1134 TD/TT: Tinsel Machine Operator: Procedure Note Radiology, Radiologist, MD - 10/11/2023 [place] [address] XRay Report Signed Patient: LILIANA MICHAELS EMR#: [id number] : 1965Acct:[id number] Age/Sex: 58 / MADM Date: 10/10/23 Loc: LAB Attending Dr: Seun Simon M.D. Ordering Physician: Seun Simon M.D. Date of Service: 10/10/23 Procedure(s): XR shoulder KRISTOPHER min 2V Accession Number(s): [id number] cc: Seun Simon M.D. [facility] [place] [id number] Patient Name: LILIANA MICHAELS MRN: [id number] date: 1965 Sex: M Assigned Patient Location: LAB Current Patient Location: Accession/Order Number: [id number] Exam Date: 10/10/2023 12:45 Report Date: 10/11/2023 [...] M.D. Signed By:10/11/23 1137 DD/ 1134 TD/TT: Tinsel Machine Operator: Seun Simon MD IMG XR PROCEDURES Final Result documented in this encounter Visit Diagnoses Not on filedocumented in this encounter Care Teams Scale Assembly Set Up Worker Relationship Specialty Start Date End Date Seun Simon MD [address] [place] [address] PCP - General Family Medicine 10/10/23 documented as of this encounter
--- OUTSIDE RECORDS SUMMARY | 2024-11-05 14:45 | XMS_ITS | Patient Health Record ---
Author Organization [facility] [place] Address [address] [place] [address] Care Team Providers Care Spa Concierge Name Role Phone Ishmael Watts MD Primary Care Provider TezAmina Obrien Unavailable [phone] Allergies No Known Allergies Results Component Value Reference Range Notes CT Chest Low Dose for Screen ing* Reviewed date:08/09/2024 02:13:12 PM Interpretation: Performing Lab: Notes/Report: White Blood Cells Reviewed date:05/31/2024 06:25:24 PM Interpretation: Performing Lab: Notes/Report: [facility] , White Blood Cells See Below For Report White Blood Cells White Blood Cells Few White Blood Cells Performing Lab: see note LC - [facility] LB Epithelial Cells Reviewed date:05/31/2024 06:25:24 PM Interpretation: Performing Lab: Notes/Report: [facility] , Epithelial Cells See Below For Report Epithelial Cells Few Performing Lab: see note LC - [facility] LB Result 1 Reviewed date:05/31/2024 06:25:24 PM Interpretation: Performing Lab: Notes/Report: [facility] , Result 1 See Below For Report Moderate number of gram positive cocci. Result 1 Performing Lab: see note LC - [facility] LB Result 2 Reviewed date:05/31/2024 06:25:24 PM Interpretation: Performing Lab: Notes/Report: [facility] , Result 2 See Below For Report Few gram negative rods. Result 2 Performing Lab: see note LC - [facility] LB Result 3 Reviewed date:05/31/2024 06:25:24 PM Interpretation: Performing Lab: Notes/Report: [facility] , Result 3 See Below For Report Result 3 YARD CLERK Performing Lab: see note LC - [facility] LB Result 4 Reviewed date:05/31/2024 06:25:24 PM Interpretation: Performing Lab: Notes/Report: [facility] , Result 4 See Below For Report YARD CLERK Result 4 Performing Lab: see note LC - [facility] LB Gram Stain Evaluation Reviewed date:05/31/2024 06:25:24 PM Interpretation: Performing Lab: Notes/Report: [facility] , Gram Stain Evaluation See Below For Report This specimen is of good quality and is acceptable for routine Gram Stain Evaluation Gram Stain Evaluation bacterial culture. This specimen is of good quality and is acceptable for routine Gram Stain Evaluation Performing Lab: see note LC - [facility] LB Lower Respiratory Culture Reviewed date:05/31/2024 06:25:24 PM Interpretation: Performing Lab: Notes/Report: [facility] , Lower Respiratory Culture See Below For Report Lower Respiratory Culture WILL FOLLOW Lower Respiratory Culture Routine respiratory samantha Lower Respiratory Culture WILL FOLLOW Lower Respiratory Culture Performed at: [facility] Lower Respiratory Culture WILL FOLLOW Lower Respiratory Culture [address] [place] [id number] Lower Respiratory Culture WILL FOLLOW Lower Respiratory Culture Locksmith Helper: Vicente Phillips PhD, Phone: [phone] Lower Respiratory Culture WILL FOLLOW Performing Lab: see note LC - [facility] LB SEE REPORT - Count Team Clerk Id information not found for OBX-specific screw machine repairer legend CBC AUTO DIFF Reviewed date:05/28/2024 01:54:35 PM Interpretation: Performing Lab: Notes/Report: [facility] , White Blood Count 6.7 4.0-11.0 10 3/uL Red Blood Count 4.88 4.70-6.10 10 6/uL Hemoglobin 15.2 14.0-18.0 g/dL Hematocrit 45.0 42.0-54.0 % Mean Corpuscular Volume 92.2 80.0-94.0 fL Mean Corpuscular Hemoglobin 31.1 25.9-34.0 pg Mean Corpuscular HGB Conc 33.8 29.9-35.2 g/dL Red Cell Distribution Width 12.5 11.0-15.0 % Platelet Count 206 150-450 10 3/uL Mean Platelet Volume 10.1 9.5-13.5 fL Neutrophils Percent Auto 87.2 43.0-75.0 % Lymphocytes Percent Auto 10.3 20.5-60.0 % Monocytes Percent Auto 1.5 1.7-12.0 % Eosinophils Percent Auto 0.0 0.9-7.0 % Basophils Percent Auto 0.1 0.2-2.0 % Immature Granulocytes Pct Auto 0.9 0.0-0.5 % Neutrophils Absolute Auto 5.9 1.4-6.5 10 3/uL Lymphocytes Absolute Auto 0.7 1.2-3.8 10 3/uL Monocytes Absolute Auto 0.1 0.3-0.8 10 3/uL Eosinophils Absolute Auto 0.0 0.0-0.7 10 3/uL Basophils Absolute Auto 0.0 0.0-0.1 10 3/uL Immature Granulocytes Abs Auto 0.06 0.00-0.03 10 3/uL Performing Lab: see note [facility] PROF CHEM 8 (BAS METB) Reviewed date:05/28/2024 01:54:35 PM Interpretation: Performing Lab: Notes/Report: [facility] , Sodium 135 136-145 mmol/L Potassium 4.1 3.5-5.1 mmol/L Chloride 98 98-107 mmol/L Carbon Dioxide 24.7 21.0-32.0 mmol/L Anion Gap 16.4 Glucose 248 74-106 mg/dL Blood Urea Nitrogen 19.0 7.0-18.0 mg/dL Creatinine 1.34 0.70-1.30 mg/dL Estimated GFR ( Kristine >60 >=60 mL/min/1.73m 2 Estimated GFR (Non- Millicent 54 >=60 mL/min/1.73m 2 BUN Creatinine Ratio 14.2 Calcium 8.7 8.5-10.1 mg/dL Performing Lab: see note - [facility] LB BNP Reviewed date:05/28/2024 01:54:36 PM Interpretation: Performing Lab: Notes/Report: Comment from er labs [facility] , NT Pro B Type Natriuretic Pept 60.0 <=900.0 pg/mL Performing Lab: see note - [facility] LB CT lung screening low-dose Reviewed date:08/09/2024 11:05:52 AM Interpretation: Performing Lab: Notes/Report: Source Facility: [facility] [place] [address] CT Scan Report Signed Patient: LILINAA MICHAELS MR#: [id number] : 1965 Acct:[id number] Age/Sex: 59 / M ADM Date: 08/09/24 Loc: CT Attending Dr: Amina Cassidy D.O. Ordering Physician: Amina Cassidy D.O. Date of Service: 08/09/24 Procedure(s): CT lung screening low-dose Accession Number(s): [id number] cc: Ishmael Watts M.D. [place] [address] Patient Name: LILIANA MICHAELS MRN: [id number] date: 1965 Sex: M Assigned Patient Location: CT Current Patient Location: CT Accession/Order Number: [id number] Exam Date: 08/09/2024 08:33 Report Date: 08/09/2024 [...] Candida Wright M.D.08/09/2024 8:45 AM Dictation Location: [place] [address] Electronically authenticated by: [id number] Y Date: 08/09/2024 08:45 Dictated By: Candida Wright M.D. Signed By: 08/09/2448 DD/ 4 TD/TT: [employer]: [place] [address] CT Scan Report Signed Patient: CHELSEY MICHAELS MR#: [id number] : 1965 Acct:[id number] Age/Sex: 59 / M ADM Date: 08/09/24 Loc: CT Attending Dr: Amina Cassidy D.O. Ordering Physician: Amina Cassidy D.O. Date of Service: 08/09/24 Procedure(s): CT roland g screening low-dose Accession Number(s): [id number] cc: Ishmael Watts M.D. [place] [id number] Patient Name: LILIANA MICHAELS MRN: [id number] date: 1965 Sex: M Assigned Patient Location: CT Current Patient Location: CT Accession/Order [facility] er: [id number] Exam Date: 08/09/2024 08:33 Report Date: 08/09/2024 08:45 At the request of: AMINA CASSIDY DO Procedure: CT lung screening low-dose LOW-DOSE SCREENING CHEST CT WITHOUT CONTRAST COMPARISON: 07/15/2022 CLINICAL DATA: Curre nt smoker with 47 year history of tobacco use Spiral axial unenhan oliva low-dose images were obtained through the chest. [...] aortic aneurysm is noted. There are similar sm all mediastinal lymph nodes. Minor gynecomastia is present. Old rib fractures are seen. There is endplate spurring at the spine. No consolidation, pleural effusion or pneumothorax is present. Minor scarring or atelectasis is visualized at the lung bases, greater on the left where there is similar nodular component at the lower lobe. A punctate nodular density is also agai n seen at the right middle lobe. No developing nodularity is noted. Limited cuts through the upper abdomen again show slight nodular adrenal limb thickening. CT/CT lung screening low-dose IMPRESSION: SIMILAR SCARRING AND NODULARITY. NO DEVELOPING NODULES. Lung RADS category 2 - benign Twelve-month low-dos e CT follow-up suggested Impression dictated by: Candida Wright M.D.08/09/2024 8:45 AM Dictation Location: [place] [address] Electronically authenticated by: [id number] Y Date: 08/09/2024 08:45 Dictated By: Candida Wright M.D. Signed By: 08/09/24 0848 DD/ 0845 TD/TT: Frame [employer]: Reason For Referral No Information Medications Medication SIG (Take, Route, Frequency, Duration) Notes Start Date End Date Status Montelukast Sodium 10 MG 1 tablet Orally QD for 90 days Active Baclofen 10 MG Oral for 90 Days Active Ventolin HFA 108 (90 Base) MCG/ACT 2 puffs as needed for SOB Inhalation Q4H for 90 days Active Aspirin 81 MG 1 tablet Orally Once a day Active Trelegy Ellipta 100-62.5-25 MCG/ACT 1 puff Inhalation QD for 90 days Rinse after use Active Furosemide 40 MG 1 tablet Orally two times daily Active Cetirizine HCl 10 MG 1 tablet Orally Daily Active Lyrica 100 MG 1 capsule Orally Onc e a day Active Nabumetone 500 MG 1 tablet Orally Twic e a day Active oxyCODONE-Acetaminophen 7.5-325 MG 1 tablet Orally 4 times daily Active Omeprazole 40 MG 1 capsule Orally Daily Active Spironolactone 100 MG 1 tablet Orally Daily Active Social History Tobacco Use: Social History Observation Description Date Details (start date - stop date) Current Smoker NA - NA Tobacco Control (Standard) Question Answer Notes Tobacco use: Current every day smoker Additional Findings: Tobacco user Light cigarett e smoker (1-9 cigs/day) Problems Problem Type SNOMED Code ICD Code Onset Dates Problem Status W/U Status Risk Notes Problem 51379787 Chronic rhinitis (J31.0) Active confirmed Problem 06184949 Obstructive sleep apnea (adult) (pediatric) (G47.33) Active confirmed High BiPAP Titration 02/05/2019: 25/21; PSG 01/17/2019: AHI 140 - Could not tolerate BiPAP. 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 Dupixent-in duced headache Problem 84337263 Cigarette nicotine dependence with nicotine-mirna oliva disorder (F17.219) Active confirmed 1-1.5ppd x 40+ years (40-60 pack-year history) Problem 589993205 Nasal polyposis (J33.9) Active confirmed Prior treatments: Dupixent > Singulair, Zyrtec, Flonase (epistaxis) Problem Type II diabetes mellitus well controlled (793130518) Diabetes mellitus type 2, controlled (E11.9) Active confirmed Problem Allergic rhinitis (22696206) Acute allergic rhinitis, unspecified seasonality, unspecified trigger (J30.9) Active confirmed Problem 969390534522317814 History of COVID-19 (Z86.16) Active confirmed 04/2022 Vital Signs Heart Rate 80 /min 08/07/2024 Temperature 96.9 degrees Fahrenheit 08/07/2024 Respiratory Rate 18 /min 08/07/2024 Blood pressure diastolic 87 mm Hg 08/07/2024 Oximetry 94 % 08/07/2024 Height 64 in 08/07/2024 Blood pressure systolic 150 mm Hg 08/07/2024 Weight 221.2 lbs 08/07/2024 BMI 37.96 kg/m2 08/07/2024 Encounters Encounter Location Date Provider Diagnosis [facility] [address] [place] [address] 06/04/2024 [facility] [place] [address] [place] [address] 08/09/2024 [facility] Cigarette nicotine dependence with nicotine-induced disorder F17.219 and Encounter for screening for malignant neoplasm of respiratory organs Z12.2 [facility] [address] [place] [address] 08/07/2024 [facility] Chronic obstructive pulmonary disease J44.9 ; Chronic respiratory failure with hypoxia J96.11 ; Cigarette nicotine dependence with nicotine-induced disorder F17.219 ; Obstructive sleep apnea (adult) (pediatric) G47.33 ; Nasal polyps J33.9 ; Encounter for screening for malignant neoplasm of respiratory organs Z12.2 ; Diabetes mellitus type 2, controlled E11.9 ; terminal gauger supervisor (current) use of inhaled steroids Z79.51 and [...] respiratory failure with hypoxia (ICD-10 - J96.11) [id number] encounter performed with the patient to document [...] rapidly recovered. Continue 2L/min O2 @ HS. 08/09/2024 Cigarette nicotine dependence with nicotine-induce d disorder (ICD-10 - F17.219) 1-1.5ppd x 40+ years (40-60 pack-year history) 08/09/2024 Encounter for screening for malignant neoplasm of respiratory organs (ICD-10 - Z12.2) 08/07/2024 Cigarette nicotine dependence with nicotine-induce d [...] 104 BiPAP titration 02/05/2019: Patient failed BiPAP. 08/07/2024 Nasal polyps (ICD-10 [...] to manage diabetes in this situation. 08/07/2024 terminal gauger supervisor (current) use of inhaled steroids (ICD-10 - Z79.51) Patient was counseled to rinse & gargle with water after inhaled corticosteroid use. 08/07/2024 Obesity, unspecified (ICD-10 - E66.9) Patient's weight is inducing a restrictive pulmonary physiology. Weight loss indicated: Decrease calories, increase activity. 08/07/2024 Other Has LUE US today. Plan Of Treatment Next Appt Details Provider Name:Amina Cassidy, 08/07/2025 08:00:00 AM, [address] [place], [address], Insurance Providers Payer Name Payer Address Payer Phone Subscriber Number Group Number Insured Name Patient Relationship to Insured Coverage Start Date Coverage End Date [facility] [address] [address] [place] [address] [id number] Liliana Michaels Self - patient is the insured 4 Medications Administered Medication Instructions Date of Administration Dosage Notes Dupixent 07/28/2022 2 mL Patient presents for a Dupixent Injection. Patient currently brought the medication with him. The medication is shipped to his home from [facility]. Patient denies complaints or concerns today. Vitals obtained. Patient requesting Dupixent to be given in the Right Upper Arm. Area was cleaned with Alcohol and allowed enough for time to dry. The skin was pinched between the thumb and index finger (around an inch and a half apart) and held in that position until the medication was fully administered from the auto-injector. Patient was given 300mg/2mL Prefilled Pen of Dupixent SQ in the Right upper Arm. Band-aid was placed on the patient's arm. Patient tolerated the procedure without difficulty. No adverse reactions were noted. Patient was held for the appropriate time. Post Injection vitals obtained. 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 Cigarette nicotine dependence with nicot ine-induced disorder F17.219 Degenerative disc disease, lumbar M51.36 Dyslipidemia E78.5 History of COVID-19 Z86.16 Obstructive sleep apnea G47.33 Plaque psoriasis L40.0 Peripheral vascular disease I73.9 Diabetes mellitus type 2, controlled E11 .9 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
--- OUTSIDE RECORDS SUMMARY | 2024-11-05 14:45 | XMS_ITS | Encounter Summary ---
Author Organization [facility] Address [address] [place] [address] Care Team Providers Care School Coordinator Name Role Phone Ishmael Watts MD Primary Care Provider [phone] Encounter Details Date Type Department Care Team (Late st Contact Info) Description 10/23/2024 Results Follow-Up [facility] [address] [place] [address] Ishmael Watts MD [address] [place] [address] Social History Tobacco Use Types Packs/Day Years [...] often do you attend chur ch or sikh services? Patient declined 10/09/2023 Do you belong to any clubs o r organizations such as pentecostal groups, unions, fraternal or athletic groups, or [...] Recorded Patient Health Questionnaire-2 Score 0 04/24/2024 [facility] Occupat ional Health [...] Office Visit [facility] [address] [place] [address] Ishmael Watts MD [address] [place] [address] documented as of this encounter Visit Diagnoses Not on filedocumented in this encounter Additional Health Concerns Assessment Noted Time PHQ-9 Depression Total Score: 4 04/24/20 24 11:00 AM EST documented as of this encounter Care Teams School Coordinator Relationship Specialty Start Date End Date Ishmael Watts MD [address] [place] [address] PCP - General Family Medicine 10/10/23 documented as of this encounter
--- OUTSIDE RECORDS SUMMARY | 2024-11-05 14:45 | XMS_ITS | Patient Health Record ---
Author Organization [facility] Address [address] [place] [address] Care Team Providers Care Egg Breaker Name Role Phone Ishmael Watts Primary Care Provider [facility] [phone] Reason For Referral No Information Plan Of Treatment No Information Insurance Providers Payer Name Payer Address Payer Phone Subscriber Number Group Number Insured Name Patient Relationship to Insured Coverage Start Date Coverage End Date [employer] [address] [address] [place] [address] [phone] [id number] LILIANA MICHAELS Self - patient is the insured
--- OUTSIDE RECORDS SUMMARY | 2024-11-05 14:45 | XMS_ITS | Encounter Summary ---
Author Organization [facility] Address [address] [place] [address] Care Team Providers Care Orange Picking Supervisor Name Role Phone Ishmael Watts MD Primary Care Provider [phone] Encounter Details Date Type Department Care Team (Late st Contact Info) Description 10/23/2024 Bamboo flowsheet [facility] [address] [place] [address] Ishmael Watts MD [address] [place] [address] Social History Tobacco Use Types Packs/Day Years [...] often do you attend chur ch or sabianist services? Patient declined 10/09/2023 Do you belong to any clubs o r organizations such as anglican groups, unions, fraternal or athletic groups, or [...] Recorded Patient Health Questionnaire-2 Score 0 04/24/2024 [facility] Occupat ional Health - Occupational [...] Office Visit [facility] [address] [place] [address] Ishmael Watts MD [address] [place] [address] documented as of this encounter Visit Diagnoses Not on filedocumented in this encounter Additional Health Concerns Assessment Noted Time PHQ-9 Depression Total Score: 4 04/24/20 24 11:00 AM EST documented as of this encounter Care Teams Orange Picking Supervisor Relationship Specialty Start Date End Date Ishmael Watts MD [address] [place] [address] PCP - General Family Medicine 10/10/23 documented as of this encounter
--- OUTSIDE RECORDS SUMMARY | 2024-11-05 14:45 | XMS_ITS | Encounter Summary ---
Author Organization [facility] Address [address] [place] [address] Care Team Providers Care Herb Digger Name Role Phone Ishmael Watts MD Primary Care Provider Encounter Details Date Type Department Care Team (Late st Contact Info) Description 10/11/2023 Orders Only [facility] [address] [place] [address] Ishmael Watts MD [address] [place] [address] Social History Tobacco Use Types Packs/Day Years [...] any clubs o r organizations such as yazidism groups, unions, fraternal [...] and heating? Not hard at all 10/09/2023 [facility] of Occupat ional Health - Occupational Stress [...] place to sleep or slept in a alf (including now)? No 10/09/2023 Sex and Gender [...] Visit [facility] [address] [place] [address] Ishmael Watts MD [address] [place] [address] documented as of this encounter Procedures Procedure [...] on filedocumented in this encounter Care Teams Herb Digger Relationship Specialty Start Date End Date Ishmael Watts MD [address] [place] [address] PCP - General Family Medicine 10/10/23 documented as of this encounter
--- OUTSIDE RECORDS SUMMARY | 2024-11-05 14:45 | XMS_ITS | Encounter Summary ---
Author Organization [facility] Address [address] [place] [address] Phone Care Team Providers Care Herpetology Teacher Name Role Phone Ishmael Watts MD Primary Care Provider + Jackelyn Wright APRN-JOINER APPRENTICE Unavailable Unavailable Amador Dickens MD Unavailable [phone] Encounter Details Date Type Department Care Team (Late st Contact Info) Description 08/10/2023 Scanned Document [facility] [address] [place] [address] Scanning, Generic Provider Social History Tobacco Use [...] EDT Appointment [facility] [address] [place] [address] 11/28/2024 8:30 AM EDT Office Visit [facility] [address] [facility] [address] [place] [address] Amador Dickens MD [address] [facility] [address] [place] [address] 05/15/2025 8:40 AM EST Office Visit [address] [place] [address] Patti Ferrer MD [address] [facility] [address] [place], [place] [id number] documented as of this encounter Visit Diagnoses Not on filedocumented in this encounter Additional Health Concerns Assessment Noted Time A fall risk assessment has been complete d for the patient 08/10/2023 1:31 PM EDT documented as of this encounter Care Teams Herpetology Teacher Relationship Specialty Start Date End Date Ishmael Watts MD [address] [place] [address] PCP - General Family Medicine 06/29/23 Jackelyn Wright, COMPUTER HARDWARE DEVELOPER-JOINER APPRENTICE [address] [place] [address] Nurse Practitioner Cardiology 11/07/23 05/16/24 Amador Dickens MD [address] [facility] Medical [facility], [address] [place] [address] 3D Specialist Electrophysiology 05/17/24 documented as of this encounter
--- OUTSIDE RECORDS SUMMARY | 2024-11-05 14:45 | XMS_ITS | Clinical Summary ---
Author Organization [employer] s tem Address [id number] [address] [place] [address] Care Team Providers Care Firepot Operator And Tender Name Role Phone Ishmael Watts MD Primary Care Provider [phone] Allergies No known active allergies Medications cetirizine [...] 08/24/2019, 08/24/2019 Medical Devices Implanted Type Area Water Hydrant Installer Device Identifier Shelf Expiration Date Model / Serial / Lot Mesh [id number] Progrip Srg - Sna - [id number] Implanted:Qty: 1 on 06/30/2021 by Roc Ramsey DO at [facility] Mesh Right: Abdomen [employer] [facility] 10/07/2023 [id number] / NA / [id number] Procedures Procedure Name Priority Date/Time Associated Diagnosis [...] Most Recently Relevant to Health Maintenance Insurance [facility] MEDICARE Care Teams Firepot Operator And Tender Relationship Specialty Start Date End Date Ishmael Watts MD PCP - General Family Medicine 08/16/19
--- OUTSIDE RECORDS SUMMARY | 2024-11-05 14:45 | XMS_ITS | Clinical Summary ---
Author Organization [facility] Address [address] [place] [address] Phone Care Team Providers Care Hand Molder Meat Name Role Phone Ishmael Watts MD Primary Care Provider + Amador Dickens MD Unavailable [phone] Allergies No known active allergies Medications [...] - 08/28/2024 11:59 PM EDT Hospital Encounter [facility] [address] [place] [address] Cardiac pacemaker in situ Discharge Disposition: Home [...] Info) Description 11/28/2024 8:00 AM EDT Appointment [facility] [address] [place] [address] 11/28/2024 8:30 AM EDT Office Visit [facility] [address] [facility] [address] [place] [address] Amador Dickens MD [address] [facility] [address] [place] [address] 05/15/2025 8:40 AM EST Office Visit [place] [address] [place] [address] Patti Ferrer MD [address] [facility] [address], [address] [place] [address] Health Maintenance Due Date Last [...] age to complete this topic HPV Vaccines (No Doses Required) Completed Hepatitis A Vaccines Aged Out No long [...] this topic Medical Devices Implanted Type Area Installment Account Checker Device Identifier Shelf Expiration Date Model / Serial / Lot Lead, Capsurefix Novus, 52 Cm - [id number] Implanted:Qty : 1 on 08/05/2023 by Amador Dickens MD at [facility] Cardiac Pacemaker Left: Chest [employer] [id number] 06/01/2025 [id number] / [id number] 9V / [id number] 9V Lead, Capsurefix Novus, 45 Cm - [id number] Implanted:Qty : 1 on 08/05/2023 by Amador Dickens MD at [facility] Cardiac Pacemaker Left: Chest [employer] [id number] 02/08/2025 [id number] / [id number] 1V / [id number] 1V Pacemaker, Dual Chamber, [place] Mri Xt Dr - [id number] Implanted:Qty : 1 on 08/05/2023 by Amador Dickens MD at [facility] Cardiac Pacemaker Left: Chest [employer] [id number] 01/03/2025 [id number] / [id number] 0G / [id number] 0G Procedures Procedure Name Priority Date/Time Associated [...] Narrative SYNGO - 08/05/2023 2:30 PM EDT [place] [address] TRANSTHORACIC ECHOCARDIOGRAM REPORT Patient Name: LILIANA Quiñones Physician: [id number] Jai Morris MD, [facility] Study Date: 08/05/2023 Ordering Provider: [id number] AAN M SALINAS MRN/PID: [id number] Fellow: Nurse: Date of /Age: 10 1965 Black Puller: Eli Pisano RDCS Gender: M Additional Staff: Height: 162.56 cm Admit Date: Weight: 90.72 kg Admission Status: Outpatient BSA / BMI: 1.96 m2 / 34.33 Department Location: [place] [address] Echo Lab Blood Pressure: 128 /73 mmHg Study Type: TRANSTHORACIC ECHO (TTE) COMPLETE Diagnosis/ICD: Bradycardia, unspecified-R00.1 Indication: Abnormal EKG, Pre-EP CPT Codes: Echo Complete w Full [id number] Study Detail: The following Echo studies were [...] LA Area A2C: 18.9 cm2 LA Major [place] A4C: 5.8 cm LA Major [place] A2C: 5.5 cm LA Volume Index: 27.0 [...] 1.3 m/s (0.6-0.9m/s) PV Max P.6 mmHg [id number] Jai Morris MD, [facility] Electronically signed on 08/05/2023 at 2:30:14 PM Final Procedure Note Jai Morris MD - 08/05/2023 [place] [address] TRANSTHORACIC ECHOCARDIOGRAM REPORT Patient Name: LILIANA MICHAELS Reading Physician: Ty Long MD, [facility] Study Date: 08/05/2023 Ordering Provider: [id number] ELISSA SALINAS MRN/PID: [id number] Fellow: Nurse: Date of /Age: 10 1965 Black Puller: Eli Gibbons [facility] Gender: M Additional Staff: Height: 162.56 cm Admit Date: Weight: 90.72 kg Admission Status: Outpatient BSA / BMI: 1.96 m2 / 34.33 Department Location: [place] [address] Echo Lab Blood Pressure: 128 /73 mmHg Study Type: TRANSTHORACIC ECHO (TTE) COMPLETE Diagnosis/ICD: Bradycardia, unspecified-R00.1 Indication: Abnormal EKG, Pre-EP CPT Codes: Echo Complete w Full Doppler-[id number] Study Detail: The following Echo studies were [...] LA Area A2C: 18.9 cm2 LA Major [place] A4C: 5.8 cm LA Major [place] A2C: 5.5 cm LA Volume Index: 27.0 [...] 1.3 m/s (0.6-0.9m/s) PV Max P.6 mmHg [id number] Jai Morris MD, FACC Electronically signed on 08/05/2023 at 2:30:14 PM Final Ana M Salinas CHEMICAL PRODUCTION ENGINEER-REFINING ENGINEER CV ECHO PROCEDURES Final Result SYNGO * Basic Metabolic Panel (08/05/2023 12:18 PM EDT) Glucose 95 74 - 99 mg/dL LAB CHEMISTRY METHOD 08/05/2023 1:29 PM EDT [facility] Sodium 139 136 - 145 mmol/L LAB CHEMISTRY METHOD 08/05/2023 1:29 PM EDT [facility] Potassium 4.0 3.5 - 5.3 mmol/L LAB CHEMISTRY METHOD 08/05/2023 1:29 PM EDT [facility] Chloride 102 98 - 107 mmol/L LAB CHEMISTRY METHOD 08/05/2023 1:29 PM EDT [facility] Bicarbonate 29 21 - 32 mmol/L LAB CHEMISTRY METHOD 08/05/2023 1:29 PM EDT [facility] Anion Gap 12 10 - 20 mmol/L LAB CHEMISTRY METHOD 08/05/2023 1:29 PM EDT [facility] Urea Nitrogen 17 6 - 23 mg/dL LAB CHEMISTRY METHOD 08/05/2023 1:29 PM EDT [facility] Creatinine 1.12 0.50 - 1.30 mg/dL LAB CHEMISTRY METHOD 08/05/2023 1:29 PM EDT [facility] eGFR 76 >60 mL/min/1.7 3m*2 LAB CHEMISTRY METHOD 08/05/2023 1:29 PM EDT [facility] Comment: Calculations of estimated GFR are performed using the 2020 CKD-EPI Study Refit equation without the race variable for the IDMS-Traceable creatinine methods. https://jasn.asnjournals.org/content//ASN.6070523774 Calcium 9.6 8.6 - 10.3 mg/dL LAB CHEMISTRY METHOD 08/05/2023 1:29 PM EDT [facility] Blood Venous blood specimen / Unknown Venipuncture / Unknown 08/05/2023 12:18 PM EDT 08/05/2023 12:52 PM EDT Ana M Salinas CHEMICAL PRODUCTION ENGINEER-REFINING ENGINEER LAB BLOOD ORDERABLES Fin al Result [facility] [address] [place], [place] [id number] from Last 3 Months or Most Recently Relevant to Health Maintenance Insurance [employer] Member Subscriber Plan / Payer (Ef fective 2023-Present) Name:Liliana Michaels Jr. Relation to Subscriber:Self Name:Liliana Michaels Jr. Payer ID:[id number] (NAIC) Type:Not on file Address: [address] [employer] Advance Directives For more information, please contact: [phone] (Available ) * Full Code (Latest Code Status on File) Date Activated Date Inactivated Comments 08/05/2023 12:02 PM Question Answer Comments Plan of Care: Code Status Discussion Not Compl eted Decision Maker: Provider Rationale: Patient condition does not warra nt discussion Care Teams Hand Molder Meat Relationship Specialty Start Date End Date Ishmael Watts MD [address] [place] [address] PCP - General Family Medicine 06/29/23 Amador Dickens MD [address] [facility] Office [facility], [facility] [address] [place], [place] [id number] Drink Box Mechanic Electrophysiology 05/17/24
--- OUTSIDE RECORDS SUMMARY | 2024-11-05 14:45 | XMS_ITS | Clinical Summary ---
Author Organization [facility] Address [address] [place] [address] Care Team Providers Care Appeals Writer Name Role Phone Ishmael Watts MD Primary Care Provider [phone] Allergies No known active allergies Medications montelukast [...] 10/23/2024 9:15 AM EDT Office Visit [facility] [address] [place] [address] Ishmael Watts MD Type 2 diabetes mellitus [...] (BMI) of 39.0 to 39.9 in adult ([facility]); Encounter for long-term (current) use of medications; Screening PSA (prostate specific antigen); Vitamin D insufficiency; Dyslipidemia 10/23/2024 Results Follow-Up [facility] [address] [place] [phone] Ishmael Watts MD 10/23/2024 Clinisync Result Encounter [facility] External Department Unsolicited Ishmael Watts MD 10/23/2024 Bamboo flowsheet [facility] [address] [place] [phone] Ishmael Watts MD 10/18/2024 Refill [facility] [address] [place] [address] Ishmeal Watts MD Degeneration of lumbar intervertebral disc 09/19/2024 Refill [facility] [address] [place] [address] Ishmael Watts MD Degeneration of lumbar intervertebral disc 09/05/2024 Refill [facility] [address] [place] [address] Ishmael Watts MD Allergic rhinitis due to pollen 08/29/2024 Refill [facility] [address] [place] [address] Ishmael Watts MD Carpal tunnel syndrome, bilateral upper limbs; Carpal tunnel syndrome 08/22/2024 Refill [facility] [address] [place] [address] Ishmael Watts MD Degeneration of lumbar intervertebral disc 08/09/2024 Clinisync Result Encounter [facility] External Department Unsolicited Provider, Generic External Data from Last 3 Months Family History Medical [...] file 10/09/2023 How often do you attend [facility] or synagogue services? Patient declined 10/09/2023 Do you belong to any clubs o r organizations such as pentecostal groups, unions, fraAspire or athletic groups, or school groups? No [...] Recorded Patient Health Questionnaire-2 Score 0 04/24/2024 [facility] [...] 12/24/2024 8:30 AM EDT Office Visit [facility] [address] [place] [address] Ishmael Watts MD [address] [place] [address] Health Maintenance Due Date Last Done Comments CT Colonography 1965 FIT-DNA 1965 FIT 1965 FOBT 1965 Sigmoidoscopy 1965 Diabetes: Hemoglobin A1C 10/23/2024 04/24/2024, 06/0 07/2023 Influenza Vaccine (Season Ended) 2025 Medicare Annual Wellness (AWV) 04/24/2025 04/24/2024 Diabetes: Urine Protein Screening 07/25/20252 025, 05/25/2023 Diabetes: Retinopathy Screening 04/16/2026 4, 05/17/2022 Colonoscopy 08/23/2029 08/24/2019, 08/24/2019 Colorectal Cancer Screening 08/23/2029 Procedures Procedure Name Priority Date/Time Associated Diagnosis Comments TBH VITAMIN D 25 [place] Routine 10/23/2024 1 0:41 AM EDT SRMCOH PROSTATE SPECIFIC ANTIGEN SCRN Routine 10/23/2024 10:41 AM EDT MLR HEMOGLOBIN A1C Routine 10/23/2024 10 :41 AM EDT ALL THYROID STIM HORMONE Routine 10/23/2024 10:41 AM EDT ALL LIPID PROFILE (FASTING) Routine 10/23/2024 10:41 AM EDT ALL BASIC METABOLIC PANEL Routine 10/23/2024 10:41 AM EDT HMHP LIVER PANEL Routine 10/23/2024 10:4 1 AM EDT ALL CBC WITH AUTO DIFF Routine 10/23/2024 10:[address] LUNG SCREENING LOW DOSE 08/09/2024 8:45 AM EDT from Last 3 Months Results * TBH VITAMIN D 25 [place] (10/23/2024 10:41 AM EDT) VITAMIN D 26.9 ng/mL TB Comment: <20 ng/mL Vit D deficient 20-<30 ng/mL Vit D insufficient 30-100 ng/mL Vit D sufficient >100 ng/mL Potential Toxicity 10/23/2024 10:4 1 AM EDT 10/23/2024 10:51 AM EDT Narrative CLINISYNC - 10/23/2024 12:02 PM EDT Ishmael BENITEZISYKATHY Final Result CLINISYMI TB * SRMCOH PROSTATE SPECIFIC ANTIGEN SCRN (10/23/2024 10:41 AM EDT) PROSTATE SPECIFIC ANTIGEN SCRN 0.86 <=4.00 ng/mL TB 10/23/2024 10:4 1 AM EDT 10/23/2024 10:51 AM EDT Narrative CLINISYNC - 10/23/2024 11:56 AM EDT Ishmael BENITEZISYKATHY Final Result Performing Organization Address [facility] Co de Phone Number CLINISYMI TB * (ABNORMAL) MLR HEMOGLOBIN A1C (10/23/2024 10:41 AM EDT) GLYCOHEMOGLOBIN A1C 7.0(H) 4.5 - 6.2 % TB Comment: ADA RECOMMENDED LIMIT 4.0 - 6.0 ADA THERAPEUTIC TARGET < 7.0 ACTION SUGGESTED > 7.0 ESTIMATED AVERAGE GLUCOSE 154 mg/dL TB 10/23/2024 10:4 1 AM EDT 10/23/2024 10:51 AM EDT Narrative CLINISYNC - 10/23/2024 11:45 AM EDT Ishmael BENITEZISYKATHY Final Result Performing Organization Address [facility] de Phone Number [facility] * HM[facility] LIVER PANEL (10/23/2024 10:41 AM EDT) BILIRUBIN TOTAL 0.5 0.2 - 1.0 mg/dL TBH BILIRUBIN DIRECT 0.1 0.0 - 0.2 mg/dL TBH ASPARTATE AMINO TRANSFERASE 22 15 - 37 U/L TBH ALANINE AMINOTRANSFERASE 39 16 - 63 U/L TBH ALKALINE PHOSPHATASE 112 46 - 116 U/L TB TOTAL PROTEIN 6.9 6.4 - 8.2 g/dL TBH ALBUMIN LEVEL 3.7 3.4 - 5.0 g/dL TBH GLOBULIN 3.2 g/dL TBH ALBUMIN GLOBULIN RATIO 1.2 TB 10/23/2024 10:4 1 AM EDT 10/23/2024 10:51 AM EDT Narrative CLINISYNC - 10/23/2024 11:44 AM EDT Ishmael Watts MD CLINISYKATHY Final Result Performing Organization Address City/[facility]/ZIP Co de Phone Number [facility] * ALL THYROID STIM HORMONE (10/23/2024 10:41 AM EDT) THYROID STIMULATING HORMONE 1.409 0.358 - 3.740 uIU/mL TB 10/23/2024 10:4 1 AM EDT 10/23/2024 10:51 AM EDT Narrative CLINISYNC - 10/23/2024 11:44 AM EDT Ishmael Watts MD CLINISYKATHY Final Result Performing Organization Address [facility] Co de Phone Number [facility] * (ABNORMAL) ALL LIPID PROFILE (FASTING) (10/23/2024 10:41 AM EDT) TRIGLYCERIDES 256(H) <=150 mg/dL TBH CHOLESTEROL 192 <=200 mg/dL TB HDL CHOLESTEROL 41 40 - 60 mg/dL TB Comment: > or =60 mg/dl - LOW CARDIOVASCULAR RISK <40 mg/dl - HIGH CARDIOVASCULAR RISK LDL CHOLESTEROL CALCULATED 100.0 mg/dL TB Comment: <100 mg/dl OPTIMAL 100-129 mg/dl NEAR OR ABOVE OPTIMAL 130-159 mg/dl BORDERLINE HIGH 160-189 mg/dl HIGH >190 mg/dl VERY HIGH VLDL CHOLESTEROL 51.2 mg/dL TB CHOL HDL RATIO 4.7 TB Comment: 3.3 - 4.4 LOW RISK 4.4 - 7.1 AVERAGE RISK 7.1 - 11.0 MODERATE RISK >11.0 HIGH RISK 10/23/2024 10:4 1 AM EDT 10/23/2024 10:51 AM EDT Narrative CLINISYNC - 10/23/2024 11:44 AM EDT us Ishmael Watts MD CLINISYNC Final Result [facility]IS[facility]NC [facility] * (ABNORMAL) ALL CBC WITH AUTO DIFF (10/23/2024 10:41 AM EDT) [facility] TB WBC 8.7 4.0 - 11.0 10 3/uL TBH TBH RBC 5.25 4.70 - 6.10 10 6/uL TBH TBH HGB 16.1 14.0 - 18.0 g/dL TBH TBH HCT 47.4 42.0 - 54.0 % TBH TBH MCV 90.3 80.0 - 94.0 fL TBH TBH MCH 30.7 25.9 - 34.0 pg TBH TBH MCHC 34.0 29.9 - 35.2 g/dL TBH TBH RDW 12.2 11.0 - 15.0 % TBH TBH PLT 259 150 - 450 10 3/uL TBH TBH MPV 10.3 9.5 - 13.5 fL TBH NEUTROPHILS PERCENT AUTO 64.5 43.0 - 75.0 % TBH LYMPHOCYTES PERCENT AUTO 22.8 20.5 - 60.0 % TBH MONOCYTES PERCENT AUTO 7.7 1.7 - 12.0 % TBH TBH EO % 3.4 0.9 - 7.0 % TBH BASOPHILS PERCENT AUTO 1.0 0.2 - 2.0 % TBH IMMATURE GRANULOCYTES PCT AUTO 0.6(H) 0.0 - 0.5 % TBH NEUTROPHILS ABSOLUTE AUTO 5.6 1.4 - 6.5 10 3/uL TBH LYMPHOCYTES ABSOLUTE AUTO 2.0 1.2 - 3.8 10 3/uL TBH MONOCYTES ABSOLUTE AUTO 0.7 0.3 - 0.8 10 3/uL TBH TBH EO # 0.3 0.0 - 0.7 10 3/uL TBH BASOPHILS ABSOLUTE AUTO 0.1 0.0 - 0.1 10 3/uL TBH IMMATURE GRANULOCYTES ABS AUTO 0.05(H) 0.00 - 0.03 10 3/uL TBH 10/23/2024 10:4 1 AM EDT 10/23/2024 10:51 AM EDT Narrative CLINISYNC - 10/23/2024 10:59 AM EDT us Ishmael Watts MD CLINSHAVON Final Result Performing Organization Address City/[facility] Co de Phone Number [facility] * (ABNORMAL) ALL BASIC METABOLIC PANEL (10/23/2024 10:41 AM EDT) SODIUM 139 136 - 145 mmol/L TBH POTASSIUM 3.8 3.5 - 5.1 mmol/L TBH CHLORIDE 100 98 - 107 mmol/L TBH CARBON DIOXIDE 33.7(H) 21.0 - 32.0 mmol/L TBH ANION GAP 9.1 TBH GLUCOSE 156(H) 74 - 106 mg/dL TBH BLOOD UREA NITROGEN 17.0 7.0 - 18.0 mg/dL TBH CREATININE 1.18 0.70 - 1.30 mg/dL TBH TBH EGFR-AF CITIZEN [place] >60 >=60 mL/min/1.7 3m 2 TBH TBH EGFR-NON AF CITIZEN [place] >60 >=60 mL/min/1.7 3m 2 TBH BUN CREATININE RATIO 14.4 TBH CALCIUM 9.5 8.5 - 10.1 mg/dL TBH 10/23/2024 10:4 1 AM EDT 10/23/2024 10:51 AM EDT Narrative CLINISYNC - 10/23/2024 11:44 AM EDT us Ishmael SOSA Final Result Performing Organization Address City/[facility] Co de Phone Number [facility] * CT LUNG SCREENING LOW DOSE (08/09/2024 8:45 AM EDT) Anatomical Region Laterality Modality Other 08/09/2024 8:45 AM EDT Narrative 08/09/2024 8:48 [place] [address] CT Scan Report Signed Patient: LILIANA MICHAELS MR#: [id number] : 1965 Acct:[id number] Age/Sex: 59 / M ADM Date: 08/09/24 Loc: CT Attending Dr: Amina Cassidy D.O. Ordering Physician: Amina Cassidy D.O. Date of Service: 08/09/24 Procedure(s): CT lung screening low-dose Accession Number(s): [id number] cc: Ishmael Watts M.D. [place] [id number] Patient Name: LILIANA MICHAELS MRN: [facility]:[id number] date: 1965 Sex: M Assigned Patient Location: CT Current Patient Location: CT Accession/Order Number: [id number] Exam Date: 08/09/2024 08:33 Report Date: 08/09/2024 [...] Candida Wright M.D.08/09/2024 8:45 AM Dictation Location: [place] [address] Electronically authenticated by: [id number] Y Date: 08/09/2024 08:45 Dictated By: Candida Wright M.D. Signed By: 08/09/2448 DD/ TD/TT: Housekeeping Lead: Procedure Note Radiology, Radiologist, - 08/09/2024 [place] [address] CT Scan Report Signed Patient: LILIANA MICHAELS EMR#: [id number] : 1965Acct:[id number] Age/Sex: 59 / MADM Date: 08/09/24 Loc: CT Attending Dr: Amina Cassidy D.O. Ordering Physician: Amina Cassidy D.O. Date of Service: 08/09/24 Procedure(s): CT lung screening low-dose Accession Number(s): [id number] cc: Ishmael Watts M.D. [place] [address] Patient Name: LILIANA MICHAELS MRN: [id number] date: 1965 Sex: M Assigned Patient Location: CT Current Patient Location: CT Accession/Order Number: [id number] Exam Date: 08/09/2024 08:33 Report Date: 08/09/2024 [...] Candida Wright M.D.08/09/2024 8:45 AM Dictation Location: [place] [address] Electronically authenticated by: [id number] Y Date: 508:45 Dictated By: Candida Wright M.D. Signed By:08/09/2448 DD/ TD/TT: Housekeeping Lead: Generic External Data Provider [facility] IMAG[facility] Final Result from Last 3 Months Insurance [employer]IC[employer]VANTAGE Care Teams Appeals Writer Relationship Specialty Start Date End Date Ishmael Watts MD [address] [place] [address] PCP - General Family Medicine 10/10/23
--- OUTSIDE RECORDS SUMMARY | 2024-11-05 14:45 | XMS_ITS | Encounter Summary ---
Author Organization [facility] Address [address] [place] [address] Care Team Providers Care Oil Refinery Process Technician Name Role Phone Ishmael Watts MD Primary Care Provider Encounter Details Date Type Department Care Team (Late st Contact Info) Description 10/23/2024 Clinisync Result Encounter [facility] External Department Unsolicited Ishmael Watts MD [address] [place] [address] Social History Tobacco Use Types Packs/Day Years [...] often do you attend chur ch or voodoo services? Patient declined 10/09/2023 Do you belong to any clubs o r organizations such as zoroastrian groups, unions, fraternal or athletic groups, or [...] Recorded Patient Health Questionnaire-2 Score 0 04/24/2024 [facility] - [...] place to sleep or slept in a group home (including now)? No 10/09/2023 Sex and [...] Visit [facility] [address] [place] [address] Ishmael Watts MD [address] [place] [address] documented as of this encounter Procedures Procedure Name Priority Date/Time Associated Diagnosis Comments TBH VITAMIN D 25 [place] Routine 10/23/2024 1 0:41 AM EDT SRMCOH PROSTATE SPECIFIC ANTIGEN SCRN Routine 10/23/2024 10:41 AM EDT MLR HEMOGLOBIN A1C Routine 10/23/2024 10 :41 AM EDT HP LIVER PANEL Routine 10/23/2024 10:4 1 AM EDT ALL THYROID STIM HORMONE Routine 10/23/2024 10:41 AM EDT ALL LIPID PROFILE (FASTING) Routine 10/23/2024 10:41 AM EDT ALL CBC WITH AUTO DIFF Routine 10/23/2024 10:41 AM EDT ALL BASIC METABOLIC PANEL Routine 10/23/2024 10:41 AM EDT documented in this encounter Results * TBH VITAMIN D 25 [place] (10/23/2024 10:41 AM EDT) [facility] VITAMIN D 26.9 ng/mL [facility] Comment: <20 ng/mL Vit D deficient 20-<30 ng/mL Vit D insufficient 30-100 ng/mL Vit D sufficient >100 ng/mL Potential Toxicity 10/23/2024 10:4 1 AM EDT 10/23/2024 10:51 AM EDT [facility] CLINISYAR - 10/23/2024 12:02 PM EDT Ishmael SOSA Final Result Performing Organization Address [facility] [[email or web address]] de Phone Number [facility] * SRMCOH PROSTATE SPECIFIC ANTIGEN SCRN (10/23/2024 10:41 AM EDT) PROSTATE SPECIFIC ANTIGEN SCRN 0.86 <=4.00 ng/mL TB 10/23/2024 10:4 1 AM EDT 10/23/2024 10:51 AM EDT [facility] CLINISYAR - 10/23/2024 11:56 AM EDT Ishmael SOSA Final Result Performing Organization Address [facility] Phone Number [facility] * (ABNORMAL) MLR HEMOGLOBIN A1C (10/23/2024 10:41 AM EDT) GLYCOHEMOGLOBIN A1C 7.0(H) 4.5 - 6.2 % TB Comment: ADA RECOMMENDED LIMIT 4.0 - 6.0 ADA THERAPEUTIC TARGET < 7.0 ACTION SUGGESTED > 7.0 ESTIMATED AVERAGE GLUCOSE 154 mg/dL TB 10/23/2024 10:4 1 AM EDT 10/23/2024 10:51 AM EDT [facility] CLINISYAR - 10/23/2024 11:45 AM EDT Ishmael SOSA Final Result Performing Organization Address [facility] Phone Number [facility] * ALL THYROID STIM HORMONE (10/23/2024 10:41 AM EDT) THYROID STIMULATING HORMONE 1.409 0.358 - 3.740 uIU/mL TB 10/23/2024 10:4 1 AM EDT 10/23/2024 10:51 AM EDT Narrative CLINISYNC - 10/23/2024 11:44 AM EDT Ishmael Watts MD CLINISYNC Final Result Performing Organization Address [facility] [[email or web address]] de Phone Number [facility] * (ABNORMAL) ALL LIPID PROFILE (FASTING) (10/23/2024 10:41 AM EDT) TRIGLYCERIDES 256(H) <=150 mg/dL TBH CHOLESTEROL 192 <=200 mg/dL TBH HDL CHOLESTEROL 41 40 - 60 mg/dL [...] MD CLINISYKATHY Final Result Performing Organization Address [facility] [[email or web address]] de Phone Number [facility] * (ABNORMAL) ALL BASIC METABOLIC PANEL (10/23/2024 [...] 0.70 - 1.30 mg/dL TBH TBH EGFR-AF Y[place]ENI >60 >=60 mL/min/1.7 3m 2 TBH TBH EGFR-NON AF YEMENI >60 >=60 mL/min/1.7 3m 2 TBH BUN CREATININE RATIO 14.4 TBH CALCIUM 9.5 8.5 - 10.1 mg/dL TBH 10/23/2024 10:4 1 AM EDT 10/23/2024 10:51 AM EDT Narrative CLINISYNC - 10/23/2024 11:44 AM EDT Ishmael BENITEZISYKATHY Final Result Performing Organization Address [facility] Co de Phone Number [facility] * [facility] LIVER PANEL (10/23/2024 10:41 AM EDT) BILIRUBIN TOTAL 0.5 0.2 - 1.0 mg/dL TBH BILIRUBIN DIRECT 0.1 0.0 - 0.2 mg/dL TBH ASPARTATE AMINO TRANSFERASE 22 15 - 37 U/L TBH ALANINE AMINOTRANSFERASE 39 16 - 63 U/L TBH ALKALINE PHOSPHATASE 112 46 - 116 U/L [facility] TOTAL PROTEIN 6.9 6.4 - 8.2 g/dL [facility] ALBUMIN LEVEL 3.7 3.4 - 5.0 g/dL [facility] GLOBULIN 3.2 g/dL [facility] ALBUMIN GLOBULIN RATIO 1.2 [facility] 10/23/2024 10:4 1 AM EDT 10/23/2024 10:51 AM EDT Narrative [facility] - 10/23/2024 11:44 AM EDT Ishmael BENITEZISYKATHY Final Result Performing Organization Address City/[facility]/ZIP Co de Phone Number [facility] * (ABNORMAL) ALL CBC WITH AUTO DIFF (10/23/2024 10:41 AM EDT) [facility] WBC 8.7 4.0 - 11.0 10 3/uL [...] Narrative [facility] - 10/23/2024 10:59 AM EDT Ishmael SOSA Final Result [facility] documented in this encounter Visit Diagnoses Not on filedocumented in this encounter Additional Health Concerns Assessment Noted Time PHQ-9 Depression Total Score: 4 04/24/20 24 11:00 AM EST documented as of this encounter Care Teams [employer] Techn[employer] Relationship Specialty Start Date End Date Ishmael Watts MD [address] [place] [id number] PCP - General Family Medicine 10/10/23 documented as of this encounter
--- OUTSIDE RECORDS SUMMARY | 2024-11-05 14:45 | XMS_ITS | Referral Summary ---
Author Organization [facility] Address [address] [place] [address] Care Team Providers Care Ways Operator Name Role Phone Unavailable Primary Care [...]
--- OUTSIDE RECORDS SUMMARY | 2024-11-05 14:46 | XMS_ITS | Encounter Summary ---
Author Organization [facility] Address [address] [place] [address] Care Team Providers Care Bundle Clerk Name Role Phone Ishmael Watts MD Primary Care Provider [phone] Ishmael Watts MD Primary Care Provider [phone] Encounter Details Date Type Department Care Team [...] Visit [facility] [address] [place] [address] Ishmael Watts MD [address] [place] [address] documented as of this encounter Procedures Procedure Name Priority Date/Time Associated Diagnosis Comments VASC US UPPER EXTREMITY VENOUS DUPLEX LEFT 08/10/2023 2:09 PM EDT documented in this encounter Results * Vascular US upper extremity venous duplex left (08/10/2023 2:09 PM EDT) Anatomical Region Laterality Modality Upper Extremities Ultrasound 08/10/2023 2:09 PM EDT Narrative 08/10/2023 3:07 PM EDT Interpreted By: Maciej Ramos, STUDY: [facility] US UPPER EXTREMITY VENOUS DUPLEX LEFT; 08/10/2023 2:47 pm INDICATION: Signs/Symptoms: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 COMPARISON: Portable chest 05 August 2023 ACCESSION NUMBER(S): [id number] ORDERING CLINICIAN: NAIMA ANDRES TECHNIQUE: Vascular ultrasound [...] Maciej Ramos 08/10/2023 3:07 PM Dictation workstation: [id number] Procedure Note Radiology, Radiologist, - 08/10/2023 Interpreted By: Maciej Ramos, STUDY: [facility] US UPPER EXTREMITY VENOUS DUPLEX LEFT; 08/10/2023 2:47 pm INDICATION: Signs/Symptoms: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 COMPARISON: Portable chest 05 August 2023 ACCESSION NUMBER(S): [id number] ORDERING CLINICIAN: NAIMA ANDRES TECHNIQUE: Vascular ultrasound [...] Maciej Ramos 08/10/2023 3:07 PM Dictation workstation: [id number] Generic External Data Provider IMG US PROCEDURES Final Result documented in this encounter Visit Diagnoses Not on filedocumented in this encounter Care Teams Bundle Clerk Relationship Specialty Start Date End Date Ishmael Watts MD PCP - General Family Medicine 04/12/23 10/09/23 Ishmael Watts MD [address] [place] [address] PCP - General Family Medicine 10/10/23 documented as of this encounter
--- OUTSIDE RECORDS SUMMARY | 2024-11-05 14:46 | XMS_ITS | Encounter Summary ---
Author Organization [facility] Address [address] [place] [address] Care Team Providers Care Yarn Washer Name Role Phone Ishmael Watts MD Primary Care Provider [phone] Encounter Details Date Type Department Care Team (Late st Contact Info) Description 05/28/2024 Orders Only [facility] [address] [place] [address] Unallocated, Noms Provider, [address] [place] [address] Social History Tobacco Use Types Packs/Day Years [...] any clubs o r organizations such as faith groups, unions, fraternal or athletic groups, or [...] Patient Health Questionnaire-2 Score 0 04/24/2024 [facility] Occupat ional Health - Occupational [...] place to sleep or slept in a skilled nursing (including now)? No 10/09/2023 Sex and Gender [...] Office Visit [facility] [address] [place] [address] Ishmael Watts MD [address] [place] [address] documented as of this encounter Procedures Procedure [...] documented as of this encounter Care Teams Yarn Washer Relationship Specialty Start Date End Date Ishmael Wtats MD [address] [place] [address] PCP - General Family Medicine 10/10/23 documented as of this encounter
--- OUTSIDE RECORDS SUMMARY | 2024-11-05 14:46 | XMS_ITS | Encounter Summary ---
Author Organization [employer] Address [id number] [address] [place] [address] Care Team Providers Care Commodity Lead Name Role Phone Ishmael Watts MD Primary Care Provider [phone] Encounter Details Date Type Department Care Team (Late st Contact Info) Description 10/08/2021 Orders Only [facility] [address] [place] [address] External, Scanning Provider Social History [...] on filedocumented in this encounter Care Teams Commodity Lead Relationship Specialty Start Date End Date Ishmael Watts MD PCP - General Family Medicine 08/16/19 documented as of this encounter
--- OUTSIDE RECORDS SUMMARY | 2024-11-05 14:46 | XMS_ITS | Encounter Summary ---
Author Organization [employer] Address [id number] [address] [place] [address] Care Team Providers Care Industrial Maintenance Manager Name Role Phone Ishmael Watts MD Primary Care Provider [phone] Encounter Details Date Type Department Care Team (Late st Contact Info) Description 09/10/2021 Orders Only [facility] [address] [facility] [address] [place] [address] External, Scanning Provider Social History Tobacco Use [...] on filedocumented in this encounter Care Teams Industrial Maintenance Manager Relationship Specialty Start Date End Date Ishmael Watts MD PCP - General Family Medicine 08/16/19 documented as of this encounter
--- OUTSIDE RECORDS SUMMARY | 2024-11-05 14:46 | XMS_ITS | Encounter Summary ---
Author Organization [facility] Address [address] [place] [address] Care Team Providers Care Steep Tender Name Role Phone Ishmael Watts MD [...] How often do you attend chur or orthodox services? Patient declined 10/09/2023 Do you belong to any clubs o r organizations such as temple groups, unions, fraternal or athletic groups, or [...] and heating? Not hard at all 10/09/2023 [facility] Occupat ional Health - Occupational Stress [...] place to sleep or slept in a prison (including now)? No 10/09/2023 Sex and Gender [...] Visit [facility] [address] [place] [address] Ishmael Watts MD [address] [place] [address] documented as of this encounter Procedures Procedure Name Priority Date/Time Associated Diagnosis Comments XR CHEST 2 VIEWS PA/LAT 11/09/2023 9:33 AM EDT documented in this encounter Results * XR CHEST 2 VIEWS PA/LAT (11/09/2023 9:33 AM EDT) Anatomical Region Laterality Modality Radiographic Estella ging 11/09/2023 9:33 AM EDT Narrative 11/10/2023 8:35 AM EDT Report to [facility] registration on 11/09/2023 at 8:30 AM for chest x-ray and device check prior to appointment with Dr. Dickens at 10 AM Interpreted By: Sancho Gross, STUDY: XR CHEST 2 VIEWS; 11/09/2023 9:46 am INDICATION: Signs/Symptoms:Pacemaker. COMPARISON: 08/05/2023 ACCESSION NUMBER(S): [id number] ORDERING CLINICIAN: BERT METCALF FINDINGS: Left-sided pacemaker in place. CARDIOMEDIASTINAL SILHOUETTE: Cardiomediastinal silhouette is normal in size and configuration. LUNGS: Lungs are clear. ABDOMEN: No remarkable upper abdominal findings. BONES: No acute osseous changes. IMPRESSION: 1. No evidence of acute cardiopulmonary process. MACRO: None Signed by: Sancho Gross 11/10/2023 8:35 AM Dictation workstation: [id number] Procedure Note Radiology, Radiologist, - 11/10/2023 Report to [facility] registration on 11/09/2023 at 8:30 AM for chestx-ray and device check prior to appointment with Dr. Dickens at 10 AM Interpreted By: Sancho Gross, STUDY: XR CHEST 2 VIEWS; 11/09/2023 9:46 am INDICATION: Signs/Symptoms:Pacemaker. COMPARISON: 08/05/2023 ACCESSION NUMBER(S): [id number] ORDERING CLINICIAN: BERT METCALF FINDINGS: Left-sided pacemaker in place. CARDIOMEDIASTINAL SILHOUETTE: Cardiomediastinal silhouette is normal in size and configuration. LUNGS: Lungs are clear. ABDOMEN: No remarkable upper abdominal findings. BONES: No acute osseous changes. IMPRESSION: 1. No evidence of acute cardiopulmonary process. MACRO: None Signed by: Sancho Gross 11/10/2023 8:35 AM Dictation workstation: [id number] Generic External Data Provider IMG XR PROCEDURES Final Result documented in this encounter Visit Diagnoses Not on filedocumented in this encounter Care Teams Steep Tender Relationship Specialty Start Date End Date Ishmael Watts MD [address] [place] [address] PCP - General Family Medicine 10/10/23 documented as of this encounter
--- OUTSIDE RECORDS SUMMARY | 2024-11-05 14:46 | XMS_ITS | Encounter Summary ---
Author Organization [facility] Address [address] [place] [address] Care Team Providers Care Quarter Section Ironer Name Role Phone Ishmael Watts MD Primary Care Provider [phone] Encounter Details Date Type Department Care Team (Late st Contact Info) Description 05/30/2024 Orders Only [facility] [address] [place] [address] Ishmael Watts MD [address] [place] [address] Social History Tobacco Use Types Packs/Day Years [...] often do you attend chur ch or jewish services? Patient declined 10/09/2023 Do you belong [...] Recorded Patient Health Questionnaire-2 Score 0 04/24/2024 [facility] Occupat ional Health - [...] Office Visit [facility] [address] [place] [address] Ishmael Watts MD [address] [place] [address] documented as of this encounter Procedures Procedure [...] documented as of this encounter Care Teams Quarter Section Ironer Relationship Specialty Start Date End Date Ishmael Watts MD [address] [place] [address] PCP - General Family Medicine 10/10/23 documented as of this encounter
--- OUTSIDE RECORDS SUMMARY | 2024-11-05 14:46 | XMS_ITS | Encounter Summary ---
Author Organization [facility] Address [address] [place] [address] Care Team Providers Care Annual Giving Director Name Role Phone Ishmael Watts MD Primary Care Provider [phone] Encounter Details Date Type Department Care Team (Late st Contact Info) Description 05/14/2024 Orders Only [facility] [address] [place] [address] Unallocated, Noms Provider, [address] [place] [address] Social History Tobacco Use Types Packs/Day Years [...] Patient Health Questionnaire-2 Score 0 04/24/2024 [facility] of Occupat ional Health - Occupational Stress [...] Visit [facility] [address] [place] [address] Ishmael Watts MD [address] [place] [address] documented as of this encounter Procedures Procedure [...] documented as of this encounter Care Teams Annual Giving Director Relationship Specialty Start Date End Date Ishmael Watts MD [address] [place] [address] PCP - General Family Medicine 10/10/23 documented as of this encounter
--- OUTSIDE RECORDS SUMMARY | 2024-11-05 14:46 | XMS_ITS | Encounter Summary ---
Author Organization [facility] Address [address] [place] [address] Care Team Providers Care Physical Therapist Center Manager Name Role Phone Ishmael Watts MD Primary Care Provider [phone] Encounter Details Date Type Department Care Team (Late st Contact Info) Description 05/28/2024 Abstract [facility] [address] [place] [address] Ishmael Watts MD [address] [place] [address] Social History Tobacco Use Types Packs/Day Years [...] often do you attend chur ch or episcopal services? Patient declined 10/09/2023 Do you belong [...] Recorded Patient Health Questionnaire-2 Score 0 04/24/2024 [facility] of Occupat ional Health - Occupational Stress [...] Office Visit [facility] [address] [place] [address] Ishmael Watts MD [address] [place] [address] documented as of this encounter Visit Diagnoses Not on filedocumented in this encounter Additional Health Concerns Assessment Noted Time PHQ-9 Depression Total Score: 4 04/24/20 24 11:00 AM EST documented as of this encounter Care Teams Physical Therapist Center Manager Relationship Specialty Start Date End Date Ishmael Watts MD [address] [place] [address] PCP - General Family Medicine 10/10/23 documented as of this encounter
--- OUTSIDE RECORDS SUMMARY | 2024-11-05 14:46 | XMS_ITS | Encounter Summary ---
Author Organization [facility] Address [address] [place] [address] Care Team Providers Care Door To Door Selling Distributor Name Role Phone Ishmael Watts MD Primary Care Provider [phone] Encounter Details Date Type Department Care Team (Late st Contact Info) Description 05/10/2024 Orders Only [facility] [address] [place] [address] Ishmael Watts MD [address] [place] [address] Social History Tobacco Use Types Packs/Day Years [...] often do you attend chur ch or gnosticism services? Patient declined 10/09/2023 Do you belong to any clubs o r organizations such as episcopalian groups, unions, fraternal or athletic groups, or [...] Recorded Patient Health Questionnaire-2 Score 0 04/24/2024 [facility] of Occupat ional Health - [...] place to sleep or slept in a jail (including now)? No 10/09/2023 Sex and Gender [...] Visit [facility] [address] [place] [address] Ishmael Watts MD [address] [place] [address] documented as of this encounter Procedures Procedure [...] documented as of this encounter Care Teams Door To Door Selling Distributor Relationship Specialty Start Date End Date Ishmael Watts MD [address] [place] [address] PCP - General Family Medicine 10/10/23 documented as of this encounter
--- NOTE | 2024-11-05 15:52 | PM.CN ---
Consult Note: HPI Data of Consult Patient: known to practice within the last 3 years Consult date: 11/05/24 Requesting Physician: Jong Reyes MD Primary Care Provider: Ishmael Watts MD Consult Narrative Reason for consult: low back pain, right leg pain Narrative: 59yom who presents for assessment. notes persistence of pain throughout low back and right leg. has had numerous interventional modalities in the past, with varying levels of benefit. lumbar mri reviewed, which shows extensive stenosis from l2-5. adamant that he is not interested in back surgery. uses percocet and lyrica. cc:: CC: Jong Reyes MD Review of Systems ROS Status of ROS 10 or more systems reviewed and unremarkable except as noted in history and below [facility] Medical History COPD exacerbation ?J44.1 - Chronic obstructive pulmonary disease with (acute) exacerbation (ICD-10) Lumbar degenerative disc disease ?M51.369 - Other intervertebral disc degeneration, lumbar region without mention of lumbar back pain or lower extremity pain (ICD-10) Right shoulder pain ?M25.511 - Pain in right shoulder (ICD-10) Obesity ?E66.9 - Obesity, unspecified (ICD-10) Kidney failure ?N19 - Unspecified kidney failure (ICD-10) Smoker ?F17.200 - Nicotine dependence, unspecified, uncomplicated (ICD-10) COPD (chronic obstructive pulmonary disease) ?J44.9 - Chronic obstructive pulmonary disease, unspecified (ICD-10) Hypertension ?I10 - Essential (primary) hypertension (ICD-10) Surgical History H/O hernia repair ?Z98.890 - Other specified postprocedural states (ICD-10) ?Z87.19 - Personal history of other diseases of the digestive system (ICD-10) History of removal of cyst ?Z98.890 - Other specified postprocedural states (ICD-10) H/O elbow surgery ?Z98.890 - Other specified postprocedural states (ICD-10) S/P bladder repair ?Z98.890 - Other specified postprocedural states (ICD-10) S/P total hip arthroplasty ?Z96.649 - Presence of unspecified artificial hip joint (ICD-10) S/P cardiac pacemaker procedure ?Z95.0 - Presence of cardiac pacemaker (ICD-10) Family History Mother Family history of cancer Family history of COPD (chronic obstructive pulmonary disease) Social History Within the past year, how often did you have a drink containing alcohol: never Score interpretation: A score less than 4 is consistent with normal alcohol consumption. Smoking status: Current every day smoker Non-prescribed substance use: cannabis (any form) Highest level of school completed/degree received: high school graduate Little interest or pleasure in doing things: not at all Feeling down, depressed, or hopeless: not at all Meds Home Medications and Allergies Home Medications ?Medication ?Instructions ?Recorded ?Confirmed ?Type albuterol 90 mcg/actuation aerosol 90 mcg inhalation .Q6HRS PRN 10/14/22 07/30/24 History inhaler shortness of breath or wheezing baclofen 10 mg tablet 10 mg PO BID 10/14/22 07/30/24 History fluticasone fur. 100 mcg-umeclid 1 inh inhalation DAILY 10/14/22 07/30/24 History 62.5 mcg-vilant 25 mcg inhalat.powder (Trelegy Ellipta) furosemide 40 mg tablet 40 mg PO BID 10/14/22 07/30/24 History montelukast 10 mg tablet 10 mg PO DAILY 10/14/22 07/30/24 History nabumetone 500 mg tablet 500 mg PO BID 10/14/22 07/30/24 History omeprazole 40 mg capsule,delayed 40 mg PO DAILY 10/14/22 07/30/24 History release oxycodone-acetaminophen 7.5 mg-325 1 tab PO Q6H 10/14/22 07/30/24 History mg tablet spironolactone 100 mg tablet 100 mg PO DAILY 10/14/22 07/30/24 History cetirizine 10 mg tablet (24Hour 10 mg PO DAILY PRN allergy symptoms 04/16/24 07/30/24 History Allergy) pregabalin 100 mg capsule mg 07/10/24 History baclofen 10 mg tablet See Rx Instructions .Route 07/12/24 07/30/24 Rx .COMPLEX PRN muscle spasm #60 tabs cephalexin 500 mg capsule 500 mg PO Q8H 5 days #15 caps 07/30/24 Rx baclofen 10 mg tablet 10 mg PO BID PRN muscle spasm #60 10/10/24 Rx tabs Allergies Allergy/AdvReac Type Severity Reaction Status Date / Time No Known Drug Allergies Allergy Verified 07/30/24 14:08 Exam Narrative Exam Narrative: Psych-alert and oriented x 3. Attentive and appropriate, constitutionally normal, displays normal mood and affect per situation.? There are no obvious deficits in memory, reasoning, or intellect.? Skin-no obvious rashes, bruising, erythema noted to the patient's area of pain. Extremities- extremities are warm with minimal edema and palpable pulses. Lumbar-no significant tenderness to palpation noted in the lumbar spine and paraspinal musculature.? Pain is elicited with extension, and lateral rotation of the lumbar spine. Range of motion is slightly diminished with these motions due to pain. Coordination remains intact.? Gait remains non-antalgic. Assessment and Plan Assessment and Plan (1) Lumbar stenosis with neurogenic claudication: Plan 59yom who presents for evaluation. failed conservative measures, as noted. imaging reviewed, as noted. given failure to respond to various conservative measures, including therapy, injections, medications, prudent to consider spinal cord stimulator trial. will order psych eval for this. he is in agreement. meds reviewed, no changes. follow up after eval.
== END 2024-11-05 14:43 | disposition home or self-care (01) ==
LOC: PM 14:43
PROVIDERS: PCP Family Medicine; Visit Provider Anesthesiology
DX: M48.062 Spinal stenosis, lumbar region with neurogenic claudication (principal)
CPT/HCPCS: G0463

== ENCOUNTER 2024-12-27 10:00 | Outpatient (RCR) | payer MEDICARE, SELFPAY | END 2025-01-12 16:13 | disposition home or self-care (01) | LOC: PT 10:00 | PROVIDERS: PCP Family Medicine; Visit Provider Anesthesiology | DX: M48.062 Spinal stenosis, lumbar region with neurogenic claudication (principal) | CPT/HCPCS: 97026; 97110; 97112; 97163 ==

== ENCOUNTER 2025-02-21 13:23 | Outpatient (OUT) | payer MEDICARE, SELFPAY ==
--- OUTSIDE RECORDS SUMMARY | 2024-05-28 05:40 | XMS_ITS ---
Author Organization [facility] Address [address] [place] [address] Care Team Providers Care Consumer Insights Specialist Name Role Phone Ishmael Watts Primary Care Provider Laurent [place] [facility] [phone] REASON FOR VISIT RIGHT SHOULDER SPRAIN Encounters Encounter Location Date Provider Diagnosis [facility] [address] [place] [address] [place] [address] 05/28/2024 Laurent Curry Plan Of Treatment No Information Progress Notes * LILIANA MICHAELS JRDOB:1964 (60 yo M)Acc No.[id number]:05/28/2024 Patient: Mingo LILIANA SALEEM JR Provider: Fransico Curry MD :1965 A ge:59 Y S ex:Male Date:05/28/2024 Address:[address] [place], [place] [id number] Pcp:Ishmael Watts Subjective: * Chief Complaints: * 1 . RIGHT SHOULDER SPRAIN. * Medical History: Objective: * Vitals: Assessment: Plan: * Treatment: Forms: * Images: * Electronic signature of Thomas Curry MD on 02/21/2025 at 01:25 PM EDT Sign off status: Pending * Provider: Fransico Curry MD Date: 0 05/28/2024 Generated for Rashmi hackett/Jori/eTwillissmitting on: 01:25 PM EDT
--- OUTSIDE RECORDS SUMMARY | 2025-02-11 00:05 | XMS_ITS | Encounter Summary ---
Author Organization [facility] Address [address] [place] [address] Care Team Providers Care Refuge Worker Name Role Phone Ishmael Watts MD Primary Care Provider [phone] Amador Dickens MD Unavailable [phone] Patti Ferrer MD Unavailable [phone] Gilbert Li MD Unavailable Encounter Details Date Type Department Care Team (Latest Contact Info) Description 02/11/2025 12:05 AM EDT - 02/11/2025 11:59 PM EDT Hospital Encounter [facility] Radiology External Films [address] [place] [id number] Discharge Disposition: Home or Self Care () Social History Tobacco Use Types Packs/Day Years Used Date Smoking Tobacco: Every Day Cigarettes Smokeless Tobacco: Never Alcohol Use Standard Drinks/Week Comments Never 0 (1 standard drink = 0.6 oz pur e alcohol) Humiliation, Afraid, Rape, and Kick questionnair e Answer Date Recorded Within the last year, have y ou been afraid of your partner or ex-partner? No 02/05/2025 Emotionally Abused Not on file 02/05/2025 Physically Abused Not on file 02/05/2025 Sexually Abused Not on file 02/05/2025 PHQ-2 Answer Date Recorded Patient Health Questionnaire-2 Score 0 02/05/2025 Sex and Gender Information Value Date Recorded Sex Assigned at Male 02/01/2025 2:40 PM EDT Legal Sex Male 12:11 AM EDT Gender Identity Choose not to disclose 2:40 PM EDT Sexual Orientation Choose not to disclose 2024 2:40 PM EDT documented as of this encounter Medications at Time of Discharge albuterol 90 mcg/actuation inhaler Inhale 2 puffs every 4 (four) hours if needed. 06/06/2024 aspirin 81 mg EC tablet Take 81 mg by mouth in the morning. baclofen (Lioresal) 10 mg tablet Take 10 mg by mouth if needed in the morning and at bedtime. cetirizine (ZyrTEC) 10 mg tablet Take 10 mg by mouth in the morning. furosemide (Lasix) 40 mg tablet TAKE 1 TABLET (40 MG) BY MOUTH IN THE MORNING AND AT BEDTIME 06/18/2024 montelukast (Singulair) 10 mg tablet take 1 tablet by mouth every day for 90 days nabumetone (Relafen) 500 mg tablet Take 500 mg by mouth twice a day. 08/12/2019 omeprazole (PriLOSEC) [address] capsule Take 40 mg by mouth in the morning. 08/12/2019 oxyCODONE-acetami nophen (Percocet) 7.5-325 mg tablet Take 1 tablet by mouth every 6 (six) hours if needed. rosuvastatin (Crestor) 10 mg tablet Take 10 mg by mouth in the morning. 06/13/2024 06/13/2025 spironolactone (Aldactone) 100 mg tablet Take 100 mg by mouth in the morning. topiramate 50 mg tablet TAKE 1 TABLET BY MOUTH IN THE MORNING AND BEFORE BEDTIME Trelegy Ellipta 100-62.5-25 mcg blister with device Inhale 1 Dose in the morning. 08/17/2019 documented as of this encounter Plan of Treatment Not on file documented as of this encounter Procedures Procedure Name Priority Date/Time Associated Diagnosis Comments XR TRANSFER OF OUTSIDE FILMS Routine 02/11/2025 12:05 AM EDT documented in this encounter Results * XR transfer of outside films (02/11/2025 12:05 AM EDT) Narrative IMAGING - 02/11/2025 11:57 AM EDT This order has been auto-finalized and does not contain a result. Jad Vega MD IMG XR PROCEDURES Final Result IMAGING documented in this encounter Visit Diagnoses Not on filedocumented in this encounter Care Teams Refuge Worker Relationship Specialty Start Date End Date Ishmael Watts MD [address] [place] [address] PCP - General Family Medicine 02/05/25 Amador Dickens MD [address] [place] [address] [address] [place], [place] [id number] Referring Physician Cardiology 02/05/25 Patti Ferrer MD [address] [place] [address], [facility] [address] [place] [address] Referring Physician Cardiology 02/05/25 Gilbert Li MD [address] [place] [address] Referring Physician Pulmonary Disease 02/05/25 documented as of this encounter
--- OUTSIDE RECORDS SUMMARY | 2025-02-21 13:25 | XMS_ITS | Clinical Summary ---
Author Organization [facility] Address [address] [place] [address] Care Team Providers Care Translation Director Name Role Phone Ishmael Watts MD Primary Care Provider [phone] Amador Dickens MD Unavailable [phone] Patti Ferrer MD Unavailable [phone] Gilbert Li MD Unavailable Allergies No known active allergies Medications nabumetone (Relafen) 500 mg tablet Take 500 mg by mouth twice a day. 08/12/2019 Active omeprazole (PriLOSEC) [address] capsule Take 40 mg by mouth in the morning. 08/12/2019 Active cetirizine (ZyrTEC) 10 mg tablet Take 10 mg by mouth in the morning. Active baclofen (Lioresal) 10 mg tablet Take 10 mg by mouth if needed in the morning and at bedtime. Active furosemide (Lasix) 40 mg tablet TAKE 1 TABLET (40 MG) BY MOUTH IN THE MORNING AND AT BEDTIME 06/18/2024 Active spironolactone (Aldactone) 100 mg tablet Take 100 mg by mouth in the morning. Active rosuvastatin (Crestor) 10 mg tablet Take 10 mg by mouth in the morning. 06/13/2024 Active montelukast (Singulair) 10 mg tablet take 1 tablet by mouth every day for 90 days Active aspirin 81 mg EC tablet Take 81 mg by mouth in the morning. Active Trelegy Ellipta 100-62.5-25 mcg blister with device Inhale 1 Dose in the morning. 08/17/2019 Active oxyCODONE-aceta minophen (Percocet) 7.5-325 mg tablet Take 1 tablet by mouth every 6 (six) hours if needed. Active topiramate 50 mg tablet TAKE 1 TABLET BY MOUTH IN THE MORNING AND BEFORE BEDTIME Active albuterol 90 mcg/actuation inhaler Inhale 2 puffs every 4 (four) hours if needed. 06/06/2024 Active Active Problems Problem Noted Date Diagnosed Date Morbid obesity 02/05/2025 Hypogonadism in male 02/05/2025 Increased frequency of urination 02/05/2025 Type 2 diabetes mellitus wit h diabetic peripheral angiopathy without gangrene 10/23/2024 Overview (02/05/2025): Noted by ALFRED Rae MD last documented on [id number] Former smoker 06/13/2024 Hyperlipidemia 06/13/2024 Mild coronary artery disease 06/13/2024 Medicare annual wellness visit, subsequent 04/24 Pacemaker 12/01/2023 Chronic pain of both shoulders 10/10/2023 Other fatigue 07/22/2023 BMI 37.0-37.9, adult 07/13/2023 Chronotropic incompetence 07/13/2023 Sick sinus syndrome 07/13/2023 Current smoker 05/23/2023 Overview (02/05/2025): Added secondary to documentation in Social History. Dyspnea 05/23/2023 Carpal tunnel syndrome of left wrist 04/13/2023 COPD (chronic obstructive pulmonary disease) 10/2022 Class 2 severe obesity due t o excess calories with serious comorbidity and body mass index (BMI) of 39.0 to 39.9 in adult 04/13/2023 DDD (degenerative disc disease), lumbar 04/13/20 23 Dyslipidemia 04/13/2023 Encounter for long-term (current) use of medicat ions 04/13/2023 Enlarged prostate with urinary obstruction 04/13 Gastritis, alcoholic 04/13/2023 Impotence of organic origin 04/13/2023 Nasal polyp 04/13/2023 Obstructive sleep apnea (adult) (pediatric) 10/2022 Peripheral vascular disease, unspecified 023 Plaque psoriasis 04/13/2023 Primary osteoarthritis of right hip 04/13/2023 Screening PSA (prostate specific antigen) 2022 Sinus bradycardia 04/13/2023 Type 2 diabetes mellitus wit h hyperglycemia, without long-term current use of insulin 04/13/2023 Overview (02/05/2025): Last Assessment & Plan: Not checking BS and due for A1C. Stick to ADA diet and limit carbs. Ulnar neuropathy of left upper extremity 023 Vitamin D insufficiency 04/13/2023 Essential hypertension, benign 05/13/2022 Overview (02/05/2025): Last Assessment & Plan: BP controlled and monitor PRN. Pain of right hip joint 01/21/2020 Resolved Problems Problem Noted Date Diagnosed Date Resolved Date Chronic diastolic heart failure 04/13/2023 02/05/2025 Encounters Date Type Department Care Team Description 02/11/2025 12:05 AM EDT - 02/11/2025 11:59 PM EDT Hospital Encounter [facility] Radiology External Films [address] [place] [address] Discharge Disposition: Home or Self Care () 02/11/2025 - 02/11/2025 12:04 AM EDT Hospital Encounter [facility] Radiology External Films [address] [place] [address] Discharge Disposition: Home or Self Care () 02/05/2025 9:00 AM EDT Consult [facility] [address] [facility] [place] [address] Jad Vega MD Spinal stenosis of lumbar region without neurogenic claudication (Primary Dx) from Last 3 Months Social History Tobacco Use Types Packs/Day Years Used Date Smoking Tobacco: Every Day Cigarettes Smokeless Tobacco: Never Tobacco Cessation:Ready to Q [...] not to disclose 2024 2:40 PM EDT Last Filed Vital Signs Vital Sign Reading Time Taken Comments Blood Pressure 113/78 02/05/2025 9:27 AM EDT Pulse 67 02/05/2025 9:27 AM EDT Temperature 36.9 C (98.4 F) 02/05/2025 9:27 AM EDT Respiratory Rate 18 08/22/2020 8:20 AM EDT Oxygen Saturation 96% 10/16/2020 2:37 PM EDT Inhaled Oxygen Concentration - - Weight 99.8 kg (220 lb) 02/05/2025 9:27 AM EDT Height 162.6 cm (5' 4 ) 02/05/2025 9:27 AM EDT Body Mass Index 37.76 02/05/2025 9:27 AM EDT Plan of Treatment Health Maintenance Due Date Last Done Comments CT Colonography 1965 Colonoscopy 1965 Colorectal Cancer Screening 1965 FIT-DNA 1965 FIT 1965 FOBT 1965 Medicare Annual Wellness (AWV) 1965 Sigmoidoscopy 1965 Diabetes: Retinopathy Screening 02/21/1974 Diabetes: Urine Protein Screening 02/21/1983 Pneumococcal Vaccine: Pediat rics (0 to 5 Years) and At-Risk Patients (6 to 64 Years) (1 of 2 - PCV) 02/21/1983 Pap Smear 02/21/1985 Adult Tetanus 02/21/1986 Cervical Cancer Screening 02/21/1994 HPV/Cotest 02/21/1994 Zoster Vaccines (1 of 2) 02/21/2014 Diabetes: Hemoglobin A1C 06/06/2020 03/06/2020 COVID-19 Vaccine ( - 2023-2 5 season) 2025 Influenza Vaccine (#1) 2025 Depression Screening 02/05/2026 02/05/2025 HIB Vaccines Aged Out No longer eligi ble based on patient's age to complete this topic HPV Vaccines Aged Out No longer eligi ble based on patient's age to complete this topic IPV Vaccines Aged Out No longer eligi ble based on patient's age to complete this topic Meningococcal B Vaccine Aged Out No l onger eligible based on patient's age to complete this topic Meningococcal Vaccine Aged Out No mu daniel eligible based on patient's age to complete this topic Rotavirus Vaccines Aged Out No longer eligible based on patient's age to complete this topic Procedures Procedure Name Priority Date/Time Associated Diagnosis Comments XR TRANSFER OF OUTSIDE FILMS Routine 02/11/2025 12:05 AM EDT MR TRANSFER OF OUTSIDE FILMS Routine 02/11/2025 12:00 AM EDT HEMOGLOBIN A1C Routine 03/06/2020 12:21 PM EDT from Last 3 Months or Most Recently Relevant to Health Maintenance Results * XR transfer of outside films (02/11/2025 12:05 AM EDT) Narrative IMAGING - 02/11/2025 11:57 AM EDT This order has been auto-finalized and does not contain a result. us Jad LUCAS XR PROCEDURES Final Result IMAGING * MR transfer of outside films (02/11/2025 12:00 AM EDT) Narrative IMAGING - 02/11/2025 11:56 AM EDT This order has been auto-finalized and does not contain a result. us Jad LUCAS MRI PROCEDURES Final Result IMAGING * (ABNORMAL) Hemoglobin A1c (03/06/2020 12:21 PM EDT) Hemoglobin A1C 6.8(H) 4.0 - 6.0 % LAB CONVERSIONS Estimated Average Glucose 148 mmol/L LAB CONVERSIONS 03/06/2020 12:2 1 PM EDT 03/06/2020 12:21 PM EDT Jey Elise MD LAB BLOOD ORDERABLES Final Resul t LAB CONVERSIONS from Last 3 Months or Most Recently Relevant to Health Maintenance Insurance [facility] MEDICARE ADVANTAGE Care Teams Translation Director Relationship Specialty Start Date End Date Ishmael Watts MD [address] [place] [address] PCP - General Family Medicine 02/05/25 Amador Dickens MD [address] [place] [address] [address] [place] [address] Referring Physician Cardiology 02/05/25 Patti Ferrer MD [address] [place] [address] [address] [place] [address] Referring Physician Cardiology 02/05/25 Gilbert Li MD [address] [place] [address] Referring Physician Pulmonary Disease 02/05/25
--- OUTSIDE RECORDS SUMMARY | 2025-02-21 13:26 | XMS_ITS | Patient Health Record ---
Author Organization [facility] [place] Address [address] [place] [address] Care Team Providers Care Musical Instrument Maker Or Repairer Name Role Phone Ishmael Watts MD Primary Care Provider UnavailAmina Obrien Unavailable [phone] Allergies No Known Allergies Results Component Value Reference Range Notes CT Chest Low Dose for Screen ing* Reviewed date:08/09/2024 02:13:12 PM Interpretation: Performing Lab: Notes/Report: BNP Reviewed date:05/28/2024 01:54:36 PM Interpretation: Performing Lab: Notes/Report: Comment from er labs [facility] , NT Pro B Type Natriuretic Pept 60.0 <=900.0 pg/mL Performing Lab: see note ML - [facility] LB CBC AUTO DIFF Reviewed date:05/28/2024 01:54:35 PM Interpretation: Performing Lab: Notes/Report: [facility] , White Blood Count 6.7 4.0-11.0 10 [...] 0.00-0.03 10 3/uL Performing Lab: see note - [facility] LB PROF CHEM 8 (BAS METB) Reviewed date:05/28/2024 01:54:35 PM Interpretation: Performing Lab: Notes/Report: [facility] , Sodium 135 136-145 mmol/L Potassium 4.1 3.5-5.1 mmol/L Chloride 98 98-107 mmol/L Carbon Dioxide 24.7 21.0-32.0 mmol/L Anion Gap 16.4 Glucose 248 74-106 mg/dL Blood Urea Nitrogen 19.0 7.0-18.0 mg/dL Creatinine 1.34 0.70-1.30 mg/dL Estimated GFR ( Kristine >60 >=60 mL/min/1.73m 2 Estimated GFR (Non- Millicent 54 >=60 mL/min/1.73m 2 BUN Creatinine Ratio 14.2 Calcium 8.7 8.5-10.1 mg/dL Performing Lab: see note ML - [facility] LB CT lung screening low-dose Reviewed date:08/09/2024 11:05:52 AM Interpretation: Performing Lab: Notes/Report: Source Facility: [facility]-[address] [place] [address] [place] [address] CT Scan Report Signed Patient: LILIANA MICHAELS MR#: [id number] : 1965 Acct:[id number] Age/Sex: 59 / M ADM Date: 08/09/24 Loc: CT Attending Dr: Amina Cassidy D.O. Ordering Physician: Amina Cassidy D.O. Date of Service: 08/09/24 Procedure(s): CT lung screening low-dose Accession Number(s): [id number] cc: Ishmael Watts M.D. [place] [address] Patient Name: LILIANA MICHAELS MRN: [id number] date: 1965 Sex: M Assigned Patient Location: CT Current Patient Location: CT Accession/Order Number: [id number] Exam Date: 08/09/2024 08:33 Report Date: 08/09/2024 [...] Candida Wright M.D.08/09/2024 8:45 AM Dictation Location: [place] [address] Electronically authenticated by: [id number] Y Date: 08/09/2024 08:45 Dictated By: Candida Wright M.D. Signed By: 08/09/24 0848 DD/ 0845 TD/TT: Deputy Sheriff K9 Handler: Lower Respiratory Culture Reviewed date:05/31/2024 06:25:24 PM Interpretation: Performing Lab: Notes/Report: [facility] , Lower Respiratory Culture See Below For Report Lower Respiratory Culture WILL FOLLOW Lower Respiratory Culture Routine respiratory samantha Lower Respiratory Culture WILL FOLLOW Lower Respiratory Culture Performed at: [facility] Lower Respiratory Culture WILL FOLLOW Lower Respiratory Culture [address] [place] [phone] Lower Respiratory Culture WILL FOLLOW Lower Respiratory Culture Metal Buildings Assembler: Vicente Phillips PhD, Phone: [phone] Lower Respiratory Culture WILL FOLLOW Performing Lab: see note LC - [facility] LB SEE REPORT - Shoelace Tipping Machine Operator Id information not found for OBX-specific film producer legend Gram Stain Evaluation Reviewed date:05/31/2024 06:25:24 PM [...] , Result 4 See Below For Report CHIEF SOLUTION ARCHITECT Result 4 Performing Lab: see note LC - [facility] LB Result 3 Reviewed date:05/31/2024 06:25:24 PM Interpretation: Performing Lab: Notes/Report: [facility] , Result 3 See Below For Report Result 3 CHIEF SOLUTION ARCHITECT Performing Lab: see note LC - [facility] [...] Lab: see note LC - [facility] LB White Blood Cells Reviewed date:05/31/2024 06:25:24 PM Interpretation: Performing Lab: Notes/Report: [facility] , White Blood Cells See Below For Report White Blood Cells White Blood Cells Few White Blood Cells Performing Lab: see note LC - [facility] LB Reason For Referral No Information Medications Medication SIG (Take, Route, Frequency, Duration) Notes Start Date End Date Status Montelukast Sodium 10 MG 1 tablet Orally QD; Duration: 90 days Active Baclofen 10 MG Oral; Duration: 90 Days Active Ventolin HFA 108 (90 Base) MCG/ACT 2 puffs as needed for SOB Inhalation Q4H; Duration: 90 days Active Aspirin 81 MG 1 tablet Orally Once a day Active Trelegy Ellipta 100-62.5-25 MCG/ACT 1 puff Inhalation QD; Duration: 90 days Rinse after use Active Furosemide [...] Problem Status W/U Status Risk Notes Problem Chronic rhinitis (22782792) Chronic rhinitis (J31.0) Active confirmed Problem Obstructive sleep apnea syndrome (disorder) (56501978) Obstructive sleep apnea (adult) (pediatric) (G47.33) Active confirmed High BiPAP Titration 02/05/2019: 25/; PSG 01/17/2019: AHI 140 - Could not tolerate BiPAP. Problem Obesity (492023560) Obesity, unspecified (E66.9) Active confirmed Problem Chronic diastolic heart failure (461265187) Chronic diastolic (congestive) heart failure (I50.32) Active confirmed Problem Chronic respiratory failure (07687112) Chronic respiratory failure with hypoxia (J96.11) Active confirmed Problem Long-term current use of inhaled steroid (860113290) assisted (current) use of inhaled steroids (Z79.51) Active confirmed Problem Long-term current use of drug therapy (227482876) Other senior living (current) drug therapy (Z79.899) Active confirmed Dupilumab (Dupixent) Problem Chronic obstructive pulmonary disease (73986200) Chronic obstructive pulmonary disease (J44.9) Active confirmed Problem Hypertension (15459128) HTN (hypertension) (I10) Active confirmed Problem COPD - Chronic obstructive pulmonary disease (35980801) Chronic obstructive pulmonary disease, unspecified COPD type (J44.9) Active confirmed Problem Multiple polyps of nasal cavity and/or nasal sinus (disorder) (1746747257) Nasal polyps (J33.9) Active confirmed ? Dupixent-ind uced headache Problem Mental disorder caused by drug (665310978) Cigarette nicotine dependence with nicotine-induc ed disorder (F17.219) Active confirmed 1-1.5ppd x 40+ years (40-60 pack-year history) Problem Nasal polyposis (9415403126) Nasal polyposis (J33.9) Active confirmed Prior treatments: Dupixent > Singulair, Zyrtec, Flonase (epistaxis) Problem Type II diabetes mellitus well controlled (340833195) Diabetes mellitus type 2, controlled (E11.9) Active confirmed Problem Allergic rhinitis (89130415) Acute allergic rhinitis, unspecified seasonality, unspecified trigger (J30.9) Active confirmed Problem History of COVID-19 (90194268961401 9105) History of COVID-19 (Z86.16) Active confirmed 04/2022 Vital Signs Heart Rate 80 /min 08/07/2024 Temperature 96.9 degrees Fahrenheit 08/07/2024 Respiratory Rate 18 /min 08/07/2024 Oximetry 94 % 08/07/2024 Blood pressure diastolic 87 mm Hg 08/07/2024 Height 64 in 08/07/2024 Blood pressure systolic 150 mm Hg 08/07/2024 Weight 221.2 lbs 08/07/2024 BMI 37.96 kg/m2 08/07/2024 Encounters Encounter Location Date Provider Diagnosis Pulmonary Medicine [address] [address] 08/07/2024 Amina [facility] Chronic obstructive pulmonary disease J44.9 ; Chronic respiratory failure with hypoxia J96.11 ; Cigarette nicotine dependence with nicotine-induced disorder F17.219 ; Obstructive sleep apnea (adult) (pediatric) G47.33 ; Nasal polyps J33.9 ; Encounter for screening for malignant neoplasm of respiratory organs Z12.2 ; Diabetes mellitus type 2, controlled E11.9 ; assisted (current) use of inhaled steroids Z79.51 and Obesity, unspecified E66.9 Pulmonary Medicine [address] [address] 06/04/2024 [facility] Pulmonary Medicine [address] [address] 08/09/2024 [facility] Cigarette nicotine dependence with nicotine-induced disorder F17.219 and Encounter for screening for malignant neoplasm of respiratory organs Z12.2 Pulmonary Medicine [place] [address] [place] [address] 12/11/2024 [facility] Assessments Encounter Date Diagnosis (ICD Code) Assessment [...] respiratory failure with hypoxia (ICD-10 - J96.11) Wrvy-tf-woku encounter performed with the patient to document [...] PSG 01/17/2019: AHI 104 BiPAP titration 02/05/2019: 25/21 Patient failed BiPAP. 08/07/2024 Nasal polyps (ICD-10 [...] to manage diabetes in this situation. 08/07/2024 assisted (current) use of inhaled steroids (ICD-10 - Z79.51) Patient was counseled to rinse & gargle with water after inhaled corticosteroid use. 08/07/2024 Obesity, unspecified (ICD-10 - E66.9) Patient's weight is inducing a restrictive pulmonary physiology. Weight loss indicated: Decrease calories, increase activity. 08/07/2024 Other Has LUE US today. Plan Of Treatment No Information Insurance Providers Payer Name Payer Address Payer Phone Subscriber Number Group Number Insured Name Patient Relationship to Insured Coverage Start Date Coverage End Date [facility] [address] [address] [place] [address] [id number] Liliana Michaels Self - patient is the [...] the appropriate time. Post Injection vitals obtained. [facility]:[id number] LOT#[id number] EXP: 04/07/2024Radu Russo 07/28/2022 05:35:03 PM > [...] pulmonary nodules R91.8 Surgical History Surgery Date(Month/Year) cardiac pacemeker 08/05/2023 Ulnar Nerve Right Elbow right hip replacement inguinal hernia repair
--- OUTSIDE RECORDS SUMMARY | 2025-02-21 13:27 | XMS_ITS | Patient Health Record ---
Author Organization [facility] Address [address] [place] [address] Care Team Providers Care Aquatics Lifeguard Name Role Phone Ishmael Watts Primary Care Provider Laurent Hatfield [facility] [phone] Reason For Referral No Information Plan Of Treatment No Information Insurance Providers Payer Name Payer Address Payer Phone Subscriber Number Group Number Insured Name Patient Relationship to Insured Coverage Start Date Coverage End Date Medicare [employer] [address] [address] [place] [address] [id number] LILIANA MICHAELS Self - patient is the insured
--- NOTE | 2025-02-21 13:43 | PM.CN ---
Consult Note: HPI Data of Consult Patient: known to practice within the last 3 years Consult date: 02/21/25 Requesting Physician: Danielle Bergeron NP Primary Care Provider: Ishmael Watts MD Consult Narrative Reason for consult: low back pain, right leg pain Narrative: Abhishek Mayen a pleasant 60 year old male who presents for assessment. notes persistence of pain throughout low back and right leg. has had numerous interventional modalities in the past, with varying levels of benefit. lumbar mri reviewed, which shows extensive stenosis from l2-5. adamant that he is not interested in back surgery. uses percocet and lyrica. Pt notes moderate to severe pain with standing, walking, activity. His pain improves significantly with sitting and forward flexion. pt utilizing baclofen, percocet, aleve with relief. denies medication side effects. pt interested in proceeding with spinal cord stimulator trial to improve pain with standing, walking, and activity. notes he can stand less than 10 minutes without pain and walk less than 100 yards without pain. Pain today 4/10 increasing at times to 10/10. he denies falls/injury. cc:: CC: Danielle Bergeron NP Review of Systems ROS Musculoskeletal Reports: back pain and extremity pain PFSH PFSH Medical History COPD exacerbation ?J44.1 - Chronic obstructive pulmonary disease with (acute) exacerbation (ICD-10) Lumbar degenerative disc disease ?M51.369 - Other intervertebral disc degeneration, lumbar region without mention of lumbar back pain or lower extremity pain (ICD-10) Right shoulder pain ?M25.511 - Pain in right shoulder (ICD-10) Obesity ?E66.9 - Obesity, unspecified (ICD-10) Kidney failure ?N19 - Unspecified kidney failure (ICD-10) Smoker ?F17.200 - Nicotine dependence, unspecified, uncomplicated (ICD-10) COPD (chronic obstructive pulmonary disease) ?J44.9 - Chronic obstructive pulmonary disease, unspecified (ICD-10) Hypertension ?I10 - Essential (primary) hypertension (ICD-10) Surgical History H/O hernia repair ?Z98.890 - Other specified postprocedural states (ICD-10) ?Z87.19 - Personal history of other diseases of the digestive system (ICD-10) History of removal of cyst ?Z98.890 - Other specified postprocedural states (ICD-10) H/O elbow surgery ?Z98.890 - Other specified postprocedural states (ICD-10) S/P bladder repair ?Z98.890 - Other specified postprocedural states (ICD-10) S/P total hip arthroplasty ?Z96.649 - Presence of unspecified artificial hip joint (ICD-10) S/P cardiac pacemaker procedure ?Z95.0 - Presence of cardiac pacemaker (ICD-10) Family History Mother Family history of cancer Family history of COPD (chronic obstructive pulmonary disease) Social History Within the past year, how often did you have a drink containing alcohol: never Score interpretation: A score less than 4 is consistent with normal alcohol consumption. Smoking status: Current every day smoker Non-prescribed substance use: cannabis (any form) Highest level of school completed/degree received: high school graduate Little interest or pleasure in doing things: not at all Feeling down, depressed, or hopeless: not at all Meds Home Medications and Allergies Home Medications ?Medication ?Instructions ?Recorded ?Confirmed ?Type albuterol 90 mcg/actuation aerosol 90 mcg inhalation .Q6HRS PRN 10/14/22 07/30/24 History inhaler shortness of breath or wheezing baclofen 10 mg tablet 10 mg PO BID 10/14/22 07/30/24 History fluticasone fur. 100 mcg-umeclid 1 inh inhalation DAILY 10/14/22 07/30/24 History 62.5 mcg-vilant 25 mcg inhalat.powder (Trelegy Ellipta) furosemide 40 mg tablet 40 mg PO BID 10/14/22 07/30/24 History montelukast 10 mg tablet 10 mg PO DAILY 10/14/22 07/30/24 History nabumetone 500 mg tablet 500 mg PO BID 10/14/22 07/30/24 History omeprazole 40 mg capsule,delayed 40 mg PO DAILY 10/14/22 07/30/24 History release oxycodone-acetaminophen 7.5 mg-325 1 tab PO Q6H 10/14/22 07/30/24 History mg tablet spironolactone 100 mg tablet 100 mg PO DAILY 10/14/22 07/30/24 History cetirizine 10 mg tablet (24Hour 10 mg PO DAILY PRN allergy symptoms 04/16/24 07/30/24 History Allergy) pregabalin 100 mg capsule mg 07/10/24 History baclofen 10 mg tablet See Rx Instructions .Route 07/12/24 07/30/24 Rx .COMPLEX PRN muscle spasm #60 tabs cephalexin 500 mg capsule 500 mg PO Q8H 5 days #15 caps 07/30/24 Rx baclofen 10 mg tablet 10 mg PO BID PRN muscle spasm #60 10/10/24 Rx tabs Allergies Allergy/AdvReac Type Severity Reaction Status Date / Time No Known Drug Allergies Allergy Verified 07/30/24 14:08 Exam Constitutional Documenting provider has reviewed patient's vital signs: yes Common normals: no apparent distress, oriented x3, healthy appearing, alert and well nourished General appearance: cooperative HENMT Common normals: normocephalic, hearing grossly normal bilaterally and moist oral mucous membranes Head and scalp: normocephalic Eye Common normals: PERRL Pupil: PERRL Neck & C-Spine Common normals: full ROM General: normal visual inspection Chest Common normals: inspection of chest normal Respiratory Common normals: normal respiratory effort, no retractions and no use of accessory muscles Back & Pelvis Lumbar spine/lower back: ROM limited, pain with ROM, lumbar spinal tenderness and straight leg raise positive right Other: significant increase in low back pain and right L2,3,4 pain with standing/walking strength 4/5 in RLE and 5/5 in LLE Neuro Common normals: oriented x3 Sensorium/orientation: alert Psych Common normals: mental status grossly normal, thought process normal, cooperative, affect normal, speech normal and activity/motor behavior normal Speech: normal speech Thought process: normal thought process Assessment and Plan Assessment and Plan (1) Lumbar stenosis with neurogenic claudication: Plan 60yom who presents for evaluation. failed conservative measures, as noted. imaging reviewed, as noted. given failure to respond to various conservative measures, including therapy, injections, medications, and pt is not interested in surgical intervention. meds reviewed, no changes. proceed with 2 lead [employer] [employer] spinal cord stimulator trial under fluoroscopy with MAC sedation once approved by insurance. risks vs benefits reviewed. functional goals reviewed. f/u 7 days after implant for lead removal.
== END 2025-02-21 13:24 | disposition home or self-care (01) ==
LOC: PM 13:23
PROVIDERS: PCP Family Medicine; Visit Provider Nurse Practitioner
DX: M48.062 Spinal stenosis, lumbar region with neurogenic claudication (principal)
CPT/HCPCS: G0463

== ENCOUNTER 2025-03-18 11:01 | Outpatient (OUT) | payer MEDICARE, SELFPAY ==
--- OUTSIDE RECORDS SUMMARY | 2025-03-07 12:27 | XMS_ITS | Encounter Summary ---
Author Organization [facility] Address [address] [place] [address] Phone Care Team Providers Care Appliance Sales Associate Name Role Phone Ishmael Watts MD Primary Care Provider + Amador Dickens MD Unavailable [phone] Reason for Referral * Imaging (Routine) - Pending ReviewSpecialtyDiagnoses / ProceduresReferred By ContactReferred To ContactCardiology Diagnoses Cardiac pacemaker in situ Procedures Cardiac Device Check - Remote Amador Dickens MD [address] [place] [address] Phone: tel: fax: Referral IDStatusReasonStart DateExpiration DateVisits RequestedVisits [id number] Review Perform Procedure Reason for Visit * Imaging (Routine) - Pending ReviewSpecialtyDiagnoses / ProceduresReferred By ContactReferred To ContactCardiology Diagnoses Cardiac pacemaker in situ Procedures Cardiac Device Check - Remote Amador Dickens MD [address] [place] [address] Phone: tel: fax: Referral IDStatusReasonStart DateExpiration DateVisits RequestedVisits [id number] Review Perform Procedure Encounter Details DateTypeDepartmentCare Team (Latest Contact Info)Xzhocyeleon57/30/2025 1:27 PM EDT - 03/07/2025 11:59 PM EDTHospital Encounter [facility] [address] [place] [address] Cardiac pacemaker in situ Discharge Disposition: Home Social History Tobacco UseTypesPacks/DayYears UsedDateSmoking Tobacco: XzxhinKaqewbwxxf764 Started: 2024Smokeless Tobacco: NeverAlcohol UseStandard Drinks/WeekComments Never0 (1 standard drink = 0.6 oz pure alcohol)Sex and Gender InformationValue Date RecordedSex Assigned at BirthNot on fileLegal XtiUhwp44/26/2022 1:30 AM EST Gender IdentityNot on fileSexual OrientationNot on filedocumented as of this encounter Medications at Time of Discharge MedicationSigDispense QuantityRefillsLast FilledStart DateEnd Date albuterol (Ventolin HFA) 90 mcg/actuation inhaler Inhale 2 puffs every 4 hours if needed. Aldactone 100 mg tablet Take 1 tablet (100 mg) by mouth once daily with breakfast. baclofen (Lioresal) 10 mg tablet TAKE 1/2 TO 1 TABLET BY MOUTH TWICE A DAY10/24/2023 cetirizine (ZyrTEC) 10 mg tablet Take 1 tablet (10 mg) by mouth once daily at bedtime. vimipjuygvm-zoellzhjb-clwmuqtb (TRELEGY-ELLIPTA) 100-62.5-25 mcg blister with device Inhale 1 puff. Use as directed furosemide (Lasix) 40 mg tablet Take 1 tablet (40 mg) by mouth 2 times a day. nabumetone (Relafen) 500 mg tablet Take 1 tablet (500 mg) by mouth 2 times a day. omeprazole (PriLOSEC) [address] capsule Take 1 capsule (40 mg) by mouth once daily. oxyCODONE-acetaminophen (Percocet) 7.5-325 mg tablet Take 1 tablet by mouth every 6 hours if needed for severe pain (7 - 10). 03/30/2021 oxygen (O2) gas therapy 2l at bedtime Singulair 10 mg tablet Take 1 tablet (10 mg) by mouth once daily at bedtime. rosuvastatin (Crestor) 10 mg tablet Indications:Peripheral vascular disease, unspecified,Hyperlipidemia, unspecified hyperlipidemia typeTake 1 tablet (10 mg) by mouth once daily. 90 tablet topiramate (Topamax) 25 mg tablet Take 1 tablet (25 mg) by mouth 2 times a day.documented as of this encounter Plan of Treatment DateTypeDepartmentCare Team (Latest Contact Info)Bwctnskaajv35/07/2026 8:40 AM ESTOffice Visit [place] [address] [place] [address] Patti Ferrer MD [address] [facility] [address] [place] [address] 06/04/2025 8:00 AM ESTAppointment [facility] [address] [place] [address] 06/04/2025 8:30 AM ESTOffice Visit [facility] [address] [facility] [address] [place] [address] Vaishnavi Lam PA-C [address] [facility] [address] [facility] [address] [place] [address] documented as of this encounter Procedures Procedure NamePriorityDate/TimeAssociated DiagnosisCommentsCARDIAC DEVICE CHECK - REMOTE - RHHQALWZQBoiasye82/30/2025 1:36 PM EDT Cardiac pacemaker in situ documented in this encounter Results * CARDIAC DEVICE CHECK - REMOTE - PACEMAKER (03/07/2025 1:36 PM EDT)Anatomical RegionLateralityModalityMonitor/DeviceSpecimen (Source)Anatomical Location / LateralityCollection Method / VolumeCollection TimeReceived Time03/07/2025 5:37 AM EDT Narrative Authorizing ProviderResult TypeResult StatusAltaz Dickens MDCV IMPLANTABLE CARDIAC DEVICE PROCEDURESFinal Result documented in this encounter Visit Diagnoses Diagnosis Cardiac pacemaker in situ documented in this encounter Additional Health Concerns AssessmentNoted TimeA fall risk assessment has been completed for the patient 06/13/2024 9:06 AM ESTdocumented as of this encounter Care Teams Team MemberRelationshipSpecialtyStart DateEnd Date Ishmael Watts MD [address] [place] [address] PCP - GeneralFamily Medicine06/29/23 Amador Dickens MD [address] [facility], [facility] [address] [place], [place] [id number] CardiologistElectrophysiology05/17/24documented as of this encounter
--- OUTSIDE RECORDS SUMMARY | 2025-03-18 11:04 | XMS_ITS | Clinical Summary ---
Author Organization [employer] [facility] Address [id number] [address] [place] [address] Care Team Providers Care Election Assistant Name Role Phone Ishmael Watts MD Primary Care Provider [phone] Allergies No known active allergies Medications MedicationSigDispense QuantityRefillsLast FilledStart DateEnd DateStatus cetirizine (ZyrTEC) 10 mg tablet Take 1 tablet (10 mg total) by mouth in the morning.08/15/2019Active TRELEGY ELLIPTA 100-62.5-25 mcg blister with device 08/17/2019Active furosemide (LASIX) 40 mg tablet Take 1 tablet (40 mg total) by mouth 2 (two) times a day.07/11/2019Active gabapentin (NEURONTIN) 300 mg capsule Take 1 capsule (300 mg total) by mouth nightly.08/04/2019Active oxyCODONE-acetaminophen (PERCOCET) 7.5-325 mg per tablet 08/16/2019Active omeprazole (PriLOSEC) 40 mg capsule Take by mouth daily.08/12/2019Active nabumetone (RELAFEN) 500 mg tablet 08/12/2019Active montelukast (SINGULAIR) 10 mg tablet 08/12/2019Active spironolactone (ALDACTONE) 50 mg tablet Take 1 tablet (50 mg total) by mouth in the morning.08/12/2019Active ibuprofen (ADVIL,MOTRIN) 200 mg tablet Take 1 tablet (200 mg total) by mouth every 6 (six) hours as needed for pain. Active baclofen (LIORESAL) 10 mg tablet Take 1 tablet (10 mg total) by mouth 3 (three) times a day.Active Active Problems No known active problems Family History Medical HistoryRelationNameCommentsBrain cancerMaternal AuntBrain TumorMother Lung cancerMotherSchizophreniaMotherCancerSisterRelationNameStatusCommentsFather DeceasedMaternal AuntAliveMotherDeceased (Age 52)SisterAlive Social History Tobacco UseTypesPacks/DayYears UsedDateSmoking Tobacco: Every OonUiuyxnhdzd345 Smokeless Tobacco: Never Tobacco Cessation:Ready to Q uit: Not Asked; Counseling Given: Not Answered Alcohol UseStandard Drinks/WeekCommentsNever0 (1 standard drink = 0.6 oz pure alcohol)ChildcareAnswerDate QyufhztdXauxrjxztBavtrda13/12/2019EmploymentAnswer Date XvvykdwsSoikeulofkAxkexpx40/12/2019Hunger ScreeningAnswerDate Recorded Within the past 12 months we worried whether our food would run out before we got money to buy more.Never True12/07/2023Within the past 12 months the food we bought just didn't last and we didn't have money to get more.Never True 4Purpose - LifeAnswerDate RecordedPurpose and direction in lifeUnknown 05/28/2020ex and Gender InformationValueDate RecordedSex Assigned at BirthNot on fileLegal TyoOfrh8012/12/2014 12:10 PM EDTGender IdentityNot on fileSexual OrientationNot on file Last Filed Vital Signs Vital SignReadingTime TakenCommentsBlood Lgtythql613/7807 9:57 AM EDT Axmcq234811/11/2021 8:40 AM OZWFphkqfhogpc35.6 ??C (97.8 ??F)08/28/2021 8:58 AM EDTRespiratory Wcgi469506/30/2021 3:30 PM ESTOxygen Jvkfpvvpoi57%06/30/2021 3:40 PM ESTInhaled Oxygen Concentration--Otdlbb39.8 kg (209 lb)12/07/2023 9:57 AM EDT Yotvqt791.6 cm (5' 4 )12/07/2023 9:57 AM EDTBody Mass Index35.8712/07/2023 9:57 AM EDT Plan of Treatment Health MaintenanceDue DateLast DoneCommentsDepression Hcvcamtpy18/16/1976 DTaP,Tdap and Td Vaccines (1 - Tdap)02/21/1983Zoster (Shingles) Vaccine (1 of 2) 02/21/2014dult BMI Twnvmroxe75/31/11978712/07/2023Tobacco Tdlyubcjw78/31/2025 12/07/2023Influenza Fzgpbhn9201/07/20252183Dnxekxplsuq19, 08/24/2019 RSV ( or age 60+ yrs) (1 - 1-dose 75+ series)02/21/2039 Medical Devices ImplantedTypeAreaManufacturerDevice IdentifierShelf Expiration DateModel / Serial / LotMesh [id number] Progrip Srg - Sna - [id number] Implanted:Qty: 1 on 06/30/2021 by Roc Ramsey [facility]eshRight: AbdomenMEDTRONIC [facility]10/07/[id number] / NA / [id number] Procedures Procedure NamePriorityDate/TimeAssociated DiagnosisCommentsPROVATION COLONOSCOPY Usqrqcr3508/24/2019 8:42 AM EDT from Last 3 Months or Most Recently Relevant to Health Maintenance Results * ES colonoscopy imaging (08/24/2019 8:42 AM EDT)Specimen (Source)Anatomical Location / LateralityCollection Method / VolumeCollection TimeReceived Time Narrative SYSTEMGENERATED, DOCUMENTATION - 08/24/2019 8:42 AM EDT This order has been auto-finalized for image and report archival. *See procedures tab in Epic or report included with PACS images for full interpretation.* Authorizing ProviderResult TypeResult StatusJoseph E Centa MDIMG OR IMG ORDERABLESFinal Result from Last 3 Months or Most Recently Relevant to Health Maintenance Insurance Care Teams Team MemberRelationshipSpecialtyStart DateEnd Date Ishmael Watts MD [facility] - [facility]/16/19
--- OUTSIDE RECORDS SUMMARY | 2025-03-18 11:04 | XMS_ITS | Clinical Summary ---
Author Organization [facility] Address [address] [place] [address] Care Team Providers Care Bowling Alley Floors Installer Name Role Phone Ishmael Watts MD Primary Care Provider [phone] Amador Dickens MD Unavailable [phone] Patti Ferrer MD Unavailable [phone] Gilbert Li MD Unavailable Allergies No known active allergies Medications MedicationSigDispense QuantityRefillsLast FilledStart DateEnd DateStatus nabumetone (Relafen) 500 mg tablet Take 500 mg by mouth twice a day.08/12/2019Active omeprazole (PriLOSEC) [address] capsule Take 40 mg by mouth in the morning.08/12/2019Active cetirizine (ZyrTEC) 10 mg tablet Take 10 mg by mouth in the morning.Active baclofen (Lioresal) 10 mg tablet Take 10 mg by mouth if needed in the morning and at bedtime.Active furosemide (Lasix) 40 mg tablet TAKE 1 TABLET (40 MG) BY MOUTH IN THE MORNING AND AT SNZZMXA96/10/2025Active spironolactone (Aldactone) 100 mg tablet Take 100 mg by mouth in the morning.Active rosuvastatin (Crestor) 10 mg tablet Take 10 mg by mouth in the morning.502/6Active montelukast (Singulair) 10 mg tablet take 1 tablet by mouth every day for 90 daysActive aspirin 81 mg EC tablet Take 81 mg by mouth in the morning.Active Trelegy Ellipta 100-62.5-25 mcg blister with device Inhale 1 Dose in the morning.08/17/2019Active oxyCODONE-acetaminophen (Percocet) 7.5-325 mg tablet Take 1 tablet by mouth every 6 (six) hours if needed.Active topiramate 50 mg tablet TAKE 1 TABLET BY MOUTH IN THE MORNING AND BEFORE BEDTIMEActive albuterol 90 mcg/actuation inhaler Inhale 2 puffs every 4 (four) hours if needed.5Active Active Problems ProblemNoted DateDiagnosed DateMorbid bzbqbfb8702/05/2025Hypogonadism in male 02/05/2025Increased frequency of tzogsvfna23/30/2025Type 2 diabetes mellitus with diabetic peripheral angiopathy without epuolpeg80/17/2025 Overview (02/05/2025): Noted by ALFRED Rae MD last documented on 20240723 Former opzoej9906/13/20240408Tncwuzawrhhngr57/05/2025Mild coronary artery disease 06/13/2024Medicare annual wellness visit, cpwccaydfs14/17/2024acemaker 12/01/2023hronic pain of both zeavyrnpt08/03/2024Other fiiegld6607/22/2023MI 37.0-37.9, adult07/13/2023hronotropic nwmmsbdavezi44/06/2024Sick sinus syndrome 07/13/2023urrent ophwyi9205/23/2023 Overview (02/05/2025): Added secondary to documentation in Social History. Ifgsjvi2905/23/2023arpal tunnel syndrome of left wrist04/13/2023OPD (chronic obstructive pulmonary disease)3Class 2 severe obesity due to excess calories with serious comorbidity and body mass index (BMI) of39.0 to 39.9 in adult04/13/2023DD (degenerative disc disease), awutuy1204/13/2023yslipidemia 04/13/2023Encounter for long-term (current) use of vygkdqowtpz37/06/2023Enlarged prostate with urinary sfmlxdrotgk33/06/2023astritis, nuedyussf21/06/2023 Impotence of organic jdfobj1404/13/2023Nasal polyp04/13/2023Obstructive sleep apnea (adult) (pediatric)04/13/2023eripheral vascular disease, unspecified 04/13/2023laque dcshwvwti10/06/2023rimary osteoarthritis of right hip 04/13/2023Screening PSA (prostate specific antigen)04/13/2023Sinus bradycardia 04/13/2023Type 2 diabetes mellitus with hyperglycemia, without long-term current use of xpdphhq6204/13/2023 Overview (02/05/2025): Last Assessment & Plan: Not checking BS and due for A1C. Stick to ADA diet and limit carbs. Ulnar neuropathy of left upper mkicdjdqt34/06/2023Vitamin D insufficiency 04/13/2023Essential hypertension, yqllnk7905/13/2022 Overview (02/05/2025): Last Assessment & Plan: BP controlled and monitor PRN. Pain of right hip joint01/21/2020 Resolved Problems ProblemNoted DateDiagnosed DateResolved DateChronic diastolic heart failure Encounters DateTypeDepartmentCare BrsfImlpyxwdptv12/06/2025 12:05 AM EDT - 02/11/2025 11:59 PM EDTHospital Encounter [facility] Radiology External Films [address] [place] [address] Discharge Disposition: Home or Self Care ()02/11/2025 - 02/11/2025 12:04 AM EDTHospital Encounter [facility] Radiology External Films [address] [place] [address] Discharge Disposition: Home or Self Care ()02/05/2025 9:00 AM EDTConsult [facility] [address] [place] [address] Jad Vega MD Spinal stenosis of lumbar region without neurogenic claudication (Primary Dx) from Last 3 Months Social History Tobacco UseTypesPacks/DayYears UsedDateSmoking Tobacco: Every DayCigarettes Smokeless Tobacco: Never Tobacco Cessation:Ready to Q uit: Not Asked; Counseling Given: Not Answered Alcohol UseStandard Drinks/WeekCommentsNever0 (1 standard drink = 0.6 oz pure alcohol)Humiliation, Afraid, Rape, and Kick questionnaireAnswerDate Recorded Within the last year, have you been afraid of your partner or ex-partner?No 02/05/2025Emotionally AbusedNot on file02/05/2025Physically AbusedNot on file 02/05/2025Sexually AbusedNot on file02/05/2025PHQ-2AnswerDate RecordedPatient Health Questionnaire-2 Spqzw914Sex and Gender InformationValueDate RecordedSex Assigned at UxwpiVvdz46/26/2025 2:40 PM EDTLegal HvbLppa6711/05/2021 12:11 AM EDTGender IdentityChoose not to aiokcdal75/26/2025 2:40 PM EDTSexual OrientationChoose not to ywrqlqtt49/26/2025 2:40 PM EDT Last Filed Vital Signs Vital SignReadingTime TakenCommentsBlood Ifsifdcf089/78002/05/2025 9:27 AM EDT Hcjje139402/05/2025 9:27 AM UXCEzwangavbvd57.9 ??C (98.4 ??F)02/05/2025 9:27 AM EDTRespiratory Rgxo505408/22/2020 8:20 AM EDTOxygen Vlqoxsenze94%10/16/2020 2:37 PM EDTInhaled Oxygen Concentration--Ccbuqq57.8 kg (220 lb)02/05/2025 9:27 AM EDT Bpwokr616.6 cm (5' 4 )02/05/2025 9:27 AM EDTBody Mass Index37.76002/05/2025 9:27 AM EDT Plan of Treatment Health MaintenanceDue DateLast DoneCommentsCT Ldwxskozsthb1964Colonoscopy 1964Colorectal Cancer Yvmzzfnse1964FIT-DNA1964FIT1964 FOBT1964Medicare Annual Wellness (AWV)1964 9466Worvkdfgdykin1964 Diabetes: Retinopathy Jzpdhlndh80/16/1974Diabetes: Urine Protein Screening 02/21/1983Pneumococcal Vaccine: Pediatrics (0 to 5 Years) and At-Risk Patients (6 to 64 Years) (1 of 2 - PCV)02/21/1983Adult Qguxags0602/21/1986Zoster Vaccines (1 of 2)02/21/2014Diabetes: Hemoglobin A1C06/06/COVID-19 Vaccine (1 - season)2025Influenza Vaccine (#1)2025Depression Sfhdudpvy13HIB VaccinesAged OutNo longer eligible based on patient's age to complete this topicHPV VaccinesAged OutNo longer eligible based on patient's age to complete this topicIPV VaccinesAged OutNo longer eligible based on patient's age to complete this topicMeningococcal B VaccineAged OutNo longer eligible based on patient's age to complete this topicMeningococcal VaccineAged OutNo longer eligible based on patient's age to complete this topic Rotavirus VaccinesAged OutNo longer eligible based on patient's age to complete this topic Procedures Procedure NamePriorityDate/TimeAssociated DiagnosisCommentsXR TRANSFER OF OUTSIDE TURBWIbkxncq09/06/2025 12:05 AM EDT MR TRANSFER OF OUTSIDE JOZCLLqfdhtl59/06/2025 12:00 AM EDT HEMOGLOBIN B5NAtmejrj63/29/2020 12:21 PM EDT from Last 3 Months or Most Recently Relevant to Health Maintenance Results * XR transfer of outside films (02/11/2025 12:05 AM EDT)Specimen (Source) Anatomical Location / LateralityCollection Method / VolumeCollection Time Received Time Narrative IMAGING - 02/11/2025 11:57 AM EDT This order has been auto-finalized and does not contain a result. Authorizing ProviderResult TypeResult StatusAlastair Gary MDIMG XR PROCEDURES Final ResultPerforming OrganizationAddressCity/State/ZIP CodePhone Number IMAGING * MR transfer of outside films (02/11/2025 12:00 AM EDT)Specimen (Source) Anatomical Location / LateralityCollection Method / VolumeCollection Time Received Time Narrative IMAGING - 02/11/2025 11:56 AM EDT This order has been auto-finalized and does not contain a result. Authorizing ProviderResult TypeResult StatusAlastair Gary MDIMG MRI PROCEDURES Final ResultPerforming OrganizationAddressCity/State/ZIP CodePhone Number IMAGING * (ABNORMAL) Hemoglobin A1c (03/06/2020 12:21 PM EDT)ComponentValueRef RangeTest MethodAnalysis TimePerformed AtPathologist SignatureHemoglobin A1C6.8(H)4.0 - 6.0 %LAB CONVERSIONSEstimated Average Lizypat893dwwb/LLAB CONVERSIONSSpecimen (Source)Anatomical Location / LateralityCollection Method / VolumeCollection TimeReceived Time03/06/2020 12:21 PM EDT1 12:21 PM EDT Narrative Authorizing ProviderResult TypeResult StatusMaged Gosia [facility] BLOOD ORDERABLES Final ResultPerforming OrganizationAddressCity/State/ZIP CodePhone Number LAB CONVERSIONS from Last 3 Months or Most Recently Relevant to Health Maintenance Insurance Care Teams Team MemberRelationshipSpecialtyStart DateEnd Date Ishmael Watts MD [facility] [facility] [place] [address] PCP - GeneralFamily Medicine02/05/25 Amador Dickens MD [address] [place] [address] [id number] Referring PhysicianCardiology02/05/25 Patti Ferrer MD [address] [place] [address] 3, [facility] [address] [place] [address] Referring PhysicianCardiology02/05/25 Gilbert Li MD [address] [place] [address] [place] [address] Referring PhysicianPulmonary Disease02/05/25
--- OUTSIDE RECORDS SUMMARY | 2025-03-18 11:04 | XMS_ITS | Clinical Summary ---
Author Organization [facility] Address [address] [place] [address] Care Team Providers Care Operations/Dispatch Name Role Phone Ishmael Watts MD Primary Care Provider [phone] Steve Pyle MD Unavailable [phone] Allergies No known active allergies Medications MedicationSigDispense QuantityRefillsLast FilledStart DateEnd DateStatus montelukast (Singulair) 10 MG tablet Take 1 tablet by mouth at bedtimeActive Bmzjldcrjza-Iaozabqcy-Ctpsho (Trelegy Ellipta) 100-62.5-25 MCG/ACT aerosol powder Inhale 1 Dose in the morning.Active baclofen (Lioresal) 10 MG tablet TAKE 1/2 TO 1 TABLET BY MOUTH TWICE A DAY01/27/2023ctive spironolactone (Aldactone) 100 MG tablet Indications:Essential hypertension, benignTAKE 1 TABLET BY MOUTH EVERY DAY 90 tablet 4Active albuterol HFA 90 mcg/act inhaler Indications:Chronic obstructive pulmonary disease with acute exacerbation (HCC) Inhale 2 puffs every 4 (four) hours if needed for wheezing 18 g 5Active furosemide (Lasix) 40 MG tablet Indications:Chronic diastolic heart failure (HCC)TAKE 1 TABLET (40 MG) BY MOUTH IN THE MORNING AND AT BEDTIME 180 tablet 5Active rosuvastatin (Crestor) 10 MG tablet Take 10 mg by mouth in the morning.ctive cephalexin (Keflex) 500 MG capsule 5Active nabumetone (Relafen) 500 MG tablet Indications:Carpal tunnel syndrome, bilateral upper limbs,Carpal tunnel syndrome TAKE 1 TABLET BY MOUTH TWICE A DAY 180 tablet 5Active cetirizine (ZyrTEC) 10 MG tablet Indications:Allergic rhinitis due to pollenTAKE 1 TABLET BY MOUTH EVERY DAY 90 tablet 5Active omeprazole (PriLOSEC) [address] capsule Indications:Alcoholic gastritis without bleeding,Alcoholic gastritisTAKE 1 CAPSULE BY MOUTH EVERY DAY 90 capsule 1075Active aspirin 81 MG EC tablet Take 81 mg by mouth DailyActive topiramate 50 MG tablet Indications:Degeneration of intervertebral disc of lumbar region with discogenic back pain and lower extremity painTake 50 mg by mouth in the morning and 50 mg before bedtime. 60 tablet 505Active Active Problems ProblemNoted DateDiagnosed DateType 2 diabetes mellitus with diabetic peripheral angiopathy without padguspu23/17/2025 Overview (10/23/2024): Noted by ALFRED Rae MD last documented on 20240723 Mild coronary artery srcaygb0306/13/2024[facility], subsequent 04/24/2024 Assessment & Plan (04/24/2024 11:38 AM EST): Due for labs. Discussed proper diet and regular aerobic exercise. Need aerobic exercise 5-6 days a week for 30 minutes at a time. Smaller portions and limit total calories. Colonoscopy every 10 years. Tetanus every 10 years. Advised not to smoke. Discussed daily Aspirin therapy. Chronic pain of both /03/2024 Assessment & Plan (10/10/2023 9:06 AM EDT): Recent pain and likely arthritis. Start PT and check x-ray. Essential hypertension, rockrc2704/13/2023 Assessment & Plan (12/24/2024 9:24 AM EDT): BP controlled and monitor PRN. Assessment & Plan (10/23/2024 10:05 AM EDT): [...] and monitor PRN. Enlarged prostate with urinary uyiylcmzhue61/06/2023astritis, alcoholic 04/13/2023hronic diastolic heart tnbhoqw6604/13/2023 Assessment & Plan (12/24/2024 9:24 AM EDT): Edema stable and continue lasix. Elevate legs PRN. Assessment & Plan (10/23/2024 10:04 AM EDT): [...] PRN. Elevate legs PRN. Chronic obstructive pulmonary hfpkezu4204/13/2023 Assessment & Plan (10/23/2024 10:04 AM EDT): [...] up with pulmonology. DDD (degenerative disc disease), sefiqq1204/13/2023 Assessment & Plan (12/24/2024 9:24 AM EDT): Pain improved with topamax but starting to worsen and increase dose. Follow with pain management. Assessment & Plan (10/23/2024 10:05 AM EDT): [...] use percocet PRN. Continue home PT exercises. Iywbhpxadsqj22/06/2023Impotence of organic umsrwg0604/13/2023Nasal polyp04/13/2023 Obstructive sleep apnea (adult) (pediatric)04/13/2023laque fljrealgz66/06/2023 Peripheral vascular disease, qadwnsmmley94/06/2023 Assessment & Plan (07/23/2024 10:53 AM EDT): No symptoms and increase ambulation. Bradycardia, sinus04/13/2023Type 2 diabetes mellitus with hyperglycemia, without long-term current use of ozopskk2204/13/2023 Assessment & Plan (12/24/2024 9:24 AM EDT): Not checking BS and recent A1C 7.0. Stick to ADA diet and limit carbs. Assessment & Plan (10/23/2024 10:05 AM EDT): [...] limit carbs. Ulnar neuropathy of left upper jayjbcxzi02/06/2023Vitamin D insufficiency 04/13/2023arpal tunnel syndrome of left wrist04/13/2023Encounter for long-term (current) use of awcforlvlsp81/06/2023Screening PSA (prostate specific antigen) 04/13/2023lass 2 severe obesity due to excess calories with serious comorbidity and body mass index (BMI) of39.0 to 39.9 in adult04/13/2023 Assessment & Plan (10/23/2024 10:04 AM EDT): Weight loss indicated. Assessment & Plan (07/23/2024 10:53 AM EDT): Weight loss indicated. Assessment & Plan (06/06/2024 10:12 AM EST): Weight loss indicated. Assessment & Plan (04/24/2024 11:38 AM EST): Weight up 28 pounds in past year. Add ozempic. Primary osteoarthritis of right hip04/13/2023 Assessment & Plan (10/23/2024 10:05 AM EDT): [...] PRN. Continue home PT exercises. Resolved Problems ProblemNoted DateDiagnosed DateResolved XfedWlrwoko53/30/202406/ Assessment & Plan (02/06/2024 1:30 PM EDT): History suggestive UTI and treat. Take cipro for infection. Send urine for culture. Increase water intake and cranberry juice. Use motrin or tylenol for discomfort. Dwweimynvki19 Assessment & Plan (02/06/2024 1:30 PM EDT): Pain with urination and in testicles. Treat with cipro. Ubsmga99hronic hypoxic respiratory lyoukhg0604/13/2023 10/23/2024 Assessment & Plan (06/06/2024 10:11 AM EST): Normal SpO2 on room air and continue nocturnal O2. Encounters DateTypeDepartmentCare CbacEchptuelrqp03/18/2025 8:30 AM EDTOffice Visit [facility] [address] [place] [phone] Ishmael Watts MD Type 2 diabetes mellitus with hyperglycemia, without long-term current use of insulin (HCC) (Primary Dx); Essential hypertension, benign ; Degeneration of intervertebral disc of lumbar region with discogenic back pain and lower extremity pain; Chronic diastolic heart failure (HCC)12/24/2024amboo flowsheet [facility] [address] [place] [phone] Ishmael Watts MD 12/17/2024Refill [facility] [address] [place] [phone] Ishmael Watts MD Degeneration of lumbar intervertebral discfrom Last 3 Months Family History Medical HistoryRelationNameCommentsLung cancerMotherSchizophreniaMotherRelation NameStatusCommentsFatherDeceasedMotherDeceased Social History Tobacco UseTypesPacks/DayYears UsedDateSmoking Tobacco: Every DayCigarettes0.536 Smokeless Tobacco: Never Tobacco Cessation:Ready to Q uit: Not Asked; Counseling Given: Not Answered Alcohol UseStandard Drinks/WeekCommentsNever0 (1 standard drink = 0.6 oz pure alcohol)Social Connection and Isolation PanelAnswerDate RecordedIn a typical week, how many times do you talk on the phone with family, friends, or neighbors?More than three times a week10/09/2023Frequency of Social Gatherings with Friends and FamilyNot on file10/09/2023How often do you attend samaritan or presybeterian services?Patient mktckpeh78/02/2024o you belong to any clubs or organizations such as samaritan groups, unions, fraternal or athletic groups, or school groups?No10/09/2023How often do you attend meetings of the clubs or organizations you belong to?Patient dcdhygcg22/02/2024re you , , , , never , or living with a partner?Living with partner 10/09/2023UDIT-CAnswerDate RecordedQ1: How often do you have a drink containing alcohol?Never10/09/2023Q2: How many drinks containing alcohol do you have on a typical day when you are drinking?Patient does not drink10/09/2023Q3: How often do you have six or more drinks on one occasion?Never10/09/2023Overall Financial Resource Strain (CARDIA)AnswerDate RecordedHow hard is it for you to pay for the very basics like food, housing, medical care, and heating?Not hard at all 10/09/2023HQ-2AnswerDate RecordedPatient Health Questionnaire-2 Score0 04/24/2024[facility] [place] [facility] - Occupational Stress QuestionnaireAnswerDate RecordedDo you feel stress - tense, restless, nervous, or anxious, or unable to sleep at night because yourmind is troubled all the time - these days?Not at all10/09/2023Exercise Vital SignAnswerDate RecordedOn average, how many days per week do you engage in moderate to strenuous exercise (like a brisk walk)?2 days10/09/2023On average, how many minutes do you engage in exercise at this level?10 min10/09/2023Hunger Vital SignAnswerDate Recorded Within the past 12 months, you worried that your food would run out before you got the money to buymore.Never true10/09/2023Within the past 12 months, the food you bought just didn't last and you didn't have money to get more.Never true 10/09/2023RAPARE - TransportationAnswerDate RecordedIn the past 12 months, has lack of transportation kept you from medical appointments or from getting medications?No10/09/2023In the past 12 months, has lack of transportation kept you from meetings, work, or from getting things needed for daily living?No 10/09/2023Housing Stability Vital SignAnswerDate RecordedIn the last 12 months, was there a time when you were not able to pay the mortgage or rent on time?No 10/09/2023In the last 12 months, how many places have you lived?In the last 12 months, was there a time when you did not have a steady place to sleep or slept in [facility] (including now)?No10/09/2023Sex and Gender InformationValueDate RecordedSex Assigned at BirthNot on fileLegal SexMale 07/21/2022 11:01 PM EDTGender IdentityNot on fileSexual OrientationNot on file Last Filed Vital Signs Vital SignReadingTime TakenCommentsBlood Zqgunxlz487/7808 8:41 AM EDT Nvqfk3999 8:41 AM RLTYytekyulguc98.4 ??C (97.5 ??F)12/24/2024 8:41 AM EDTRespiratory Kpum330112/24/2024 8:41 AM EDTOxygen Gesltamema09%12/24/2024 8:41 AM EDTInhaled Oxygen Concentration--Hacody037 kg (223 lb)12/24/2024 8:41 AM EDT Agdivs322.6 cm (5' 4 )12/24/2024 8:41 AM EDTBody Mass Index38.2808 8:41 AM EDT Plan of Treatment Health MaintenanceDue DateLast DoneCommentsCT Uoakvfpbfjun1964FIT-DNA 1964FIT1964FOBT1964 3849Tspedoyuimuso1964Pneumococcal Vaccine: Pediatrics (0 to 5 Years) and At-Risk Patients (6 to 64 Years) (1 of 2 - PCV)02/21/1983COVID-19 Vaccine (1 - season)2025Influenza Vaccine (#1)2025Diabetes: Hemoglobin A1C/, 04/24/2024, 10/10/2023Medicare Annual Wellness (AWV)iabetes: Urine Protein Uuzhgazds89/19/083002/, 05/25/2023iabetes: Retinopathy Screening /01/2024, 4137Pnduqydaalu54, 08/24/2019 Colorectal Cancer Tadavcluf77/17/2030 Insurance Care Teams Team MemberRelationshipSpecialtyStart DateEnd Date Ishmael Watts MD PCP - [facility]10/10/23 Steve Pyle MD [address] [place] [address] PCP [facility]06/09/23
--- NOTE | 2025-03-18 11:05 | XR_ITS ---
The [address] [address] Patient Name: LILIANA MICHAELS MRN: [id number] date: 1965 Sex: M Assigned Patient Location: [facility] Current Patient Location: [facility] Accession/Order Number: [id number] Exam Date: 03/18/2025 11:55 Report Date: 03/18/2025 17:55 At the request of: OSMEL GALEAS MD Procedure: XR chest 2V PA AND LATERAL CHEST: CLINICAL HISTORY: Preop exam COMPARISON: 05/27/2024 FINDINGS: Left-sided pacemaker device. Borderline cardiomediastinal silhouette. Lungs are clear. No effusion or pneumothorax. XR/XR chest 2V IMPRESSION: NO ACUTE CARDIOPULMONARY ABNORMALITY. Impression dictated by: Darion Corbin M.D. 03/18/2025 5:55 PM Dictation Location: [place] [address] Electronically authenticated by: [id number] Y Date: 03/18/2025 17:55
--- OUTSIDE RECORDS SUMMARY | 2025-03-18 11:05 | XMS_ITS | Patient Health Record ---
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
--- OUTSIDE RECORDS SUMMARY | 2025-03-18 11:05 | XMS_ITS | Encounter Summary ---
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 Name Role Phone Ishmael Simon MD Primary Care Provider [phone] Steve Pyle MD Unavailable [phone] Encounter Details DateTypeDepartmentCare Team (Latest Contact Info)Fwyonobveuc46/04/2024Clinisync Result Encounter [facility] Unsolicited Ishmael Simon MD [address] [facility] [place] [phone] Social History Tobacco UseTypesPacks/DayYears UsedDateSmoking Tobacco: Every DayCigarettes0.536 Smokeless Tobacco: NeverAlcohol UseStandard Drinks/WeekCommentsNever0 (1 standard drink = 0.6 oz pure alcohol)Social Connection and Isolation PanelAnswer Date RecordedIn a typical week, how many times do you talk on the phone with family, friends, or neighbors?More than three times a week10/09/2023Frequency of Social Gatherings with Friends and FamilyNot on file10/09/2023How often do you attend mormonism or adventist services?Patient /02/2024Do you belong to any clubs or organizations such as mormonism groups, unions, fraternal or athletic groups, or school groups?No10/09/2023How often do you attend meetings of the clubs or organizations you belong to?Patient ubbelbhj79/02/2024Are you , , , , never , or living with a partner?Living with cnajcig4310/09/2023UDIT-CAnswerDate RecordedQ1: How often do you have a drink containing alcohol?Never10/09/2023Q2: How many drinks containing alcohol do you have on a typical day when you are drinking?Patient does not drink 10/09/2023Q3: How often do you have six or more drinks on one occasion?Never 10/09/2023Overall Financial Resource Strain (CARDIA)AnswerDate RecordedHow hard is it for you to pay for the very basics like food, housing, medical care, and heating?Not hard at all10/09/2023HQ-2AnswerDate RecordedPatient Health Questionnaire-2 Xffmb34906/25/2023[facility] - Occupational Stress QuestionnaireAnswerDate RecordedDo you feel stress - tense, restless, nervous, or anxious, or unable to sleep at night because yourmind is troubled all the time - these days?Not at all10/09/2023Exercise Vital SignAnswer Date RecordedOn average, how many days per week do you engage in moderate to strenuous exercise (like a brisk walk)?2 days10/09/2023On average, how many minutes do you engage in exercise at this level?10 min10/09/2023Hunger Vital SignAnswerDate RecordedWithin the past 12 months, you worried that your food would run out before you got the money to buymore.Never true10/09/2023Within the past 12 months, the food you bought just didn't last and you didn't have money to get more.Never true10/09/2023RAPARE - TransportationAnswerDate RecordedIn the past 12 months, has lack of transportation kept you from medical appointments or from getting medications?No10/09/2023In the past 12 months, has lack of transportation kept you from meetings, work, or from getting things needed for daily living?No10/09/2023Housing Stability Vital SignAnswerDate RecordedIn the last 12 months, was there a time when you were not able to pay the mortgage or rent on time?No10/09/2023In the last 12 months, how many places have you lived?In the last 12 months, was there a time when you did not have a steady place to sleep or [facility] ([facility] now)?No 10/09/2023Sex and Gender InformationValueDate RecordedSex Assigned at BirthNot on fileLegal JuhRnhw9007/21/2022 11:01 PM EDTGender IdentityNot on fileSexual OrientationNot on filedocumented as of this encounter Functional Status * Over the past 2 weeks, how often have you been bothered by any of the following problems?QuestionAnswerDate of AssessmentAuthorLittle interest or pleasure in doing thingsNot at all04/24/2024 11:00 AM Katiuska Mejia MA Feeling down, depressed, or hopelessNot at all04/24/2024 11:00 AM Katiuska Mejia MAPatient Health Questionnaire-2 Yygnc16306/25/2023 11:00 AM Katiuska Mejia MA * QuestionAnswerDate of AssessmentAuthorTrouble falling or staying asleep, or sleeping too muchNearly every day04/24/2024 11:00 AM Katiuska Mejia MA Feeling tired or having little energyNot at all04/24/2024 11:00 AM Katiuska Mejia MAPoor appetite or overeatingSeveral days04/24/2024 11:00 AM Katiuska Mejia MAFeeling bad about yourself - or that you are a failure or have let yourself or your family downNot at all04/24/2024 11:00 AM Katiuska Mejia MA Trouble concentrating on things, such as reading the newspaper or watching televisionNot at all04/24/2024 11:00 AM Katiuska Mejia MAMoving or speaking so slowly that other people could have noticed? Or the opposite - being so fidgety or restless that you have been moving around a lot more than usual.Not at all04/24/2024 11:00 AM Katiuska Mejia MAThoughts that you would be better off or hurting yourself in some wayNot at all04/24/2024 11:00 AM Katiuska Mejia MAPatient Health Questionnaire-9 Ibgmc26206/25/2023 11:00 AM Katiuska Mejia MA documented as of this encounter Plan of Treatment Not on file documented as of this encounter Procedures Procedure NamePriorityDate/TimeAssociated DiagnosisCommentsXR SHOULDER 2+ VIEWS STTFUUSSA15/04/2024 11:34 AM EDT documented in this encounter Results * XR shoulder 2+ views bilateral (10/11/2023 11:34 AM EDT)Anatomical Region LateralityModalityUpper Extremities, ShoulderBilateralRadiographic Imaging Specimen (Source)Anatomical Location / LateralityCollection Method / Volume Collection TimeReceived Time10/11/2023 11:34 AM EDT Narrative 10/11/2023 11:37 AM EDT [facility] ?[address] ? [place] [address] ?XRay Report ? Signed ? Patient: LILIANA MICHAELS ?MR#: [id number] ?? : 1965 ?Acct:[id number] ?? Age/Sex: 58 / M ?ADM Date: 10/10/23 ?? Loc: LAB ? Attending Dr: Ishmael Simon M.D. ? Ordering Physician: Ishmael Simon M.D. ?? Date of Service: 10/10/23 ?? Procedure(s): XR shoulder KRISTOPHER min 2V ?? Accession Number(s): [id number] ? cc: Ishmael Smion M.D. ? [facility] ? [address] ? [place] [address] ? Patient Name: ?? LILIANA MICHAELS ? MRN: [id number] ? date: 1965 ?Sex: M ?? Assigned Patient Location: LAB ?? Current Patient Location: ? Accession/Order Number: [id number] ?? Exam Date: 10/10/2023 ??12:45 ?Report Date: 10/11/2023 ??11:34 ? At the request of: ?? ISHMAEL ??NADERER ? Procedure: ??XR shoulder KRISTOPHER min 2V ? EXAMINATION: XR shoulder KRISTOPHER min 2V ? HISTORY: Chronic pain of both shoulders M25.511, G89.29, M25.512 ? COMPARISON: No relevant comparison available. ? FINDINGS: ? RIGHT FINDINGS: ?? BONES: Narrowing of the glenohumeral joint with undersurface osteophytes ?? projecting from inferior margin of humeral head and inferior margin of ?? glenoid. ?? Narrowing of the acromioclavicular joint with prominent undersurface and ?? cephalad projecting osteophytes. ?? SOFT TISSUES: No visible soft tissue swelling. ?? OTHER: Negative. ? LEFT FINDINGS: ?? BONES: Narrowing of the glenohumeral joint with undersurface osteophytes ?? projecting from inferior margin of humeral head and inferior margin of the ?? glenoid. Narrowing of the acromioclavicular joint with prominent undersurface ?? and cephalad projecting osteophytes. ?? SOFT TISSUES: No visible soft tissue swelling. ?? OTHER: Negative. ? XR/XR shoulder KRISTOPHER min 2V ?? IMPRESSION: ?? RIGHT CONCLUSION: Moderate degenerative changes of the glenohumeral joint and ?? acromioclavicular joint. Findings would predispose to rotator cuff injury. ? LEFT CONCLUSION: Moderate degenerative changes of the glenohumeral joint and ?? acromioclavicular joint. Findings would predispose to rotator cuff injury. ? Electronically authenticated by: LAURENT ??ARLENE ?? Date: 10/11/2023 ??11:34 ? Dictated By: ?Laurent Sahu M.D. ? Signed By: ?10/11/23 1137 ? DD/ 1134 ? TD/TT: ? Medical Billing Service: Procedure Note Radiology, Radiologist, - 10/11/2023 The [place] [id number] XRay Report Signed Patient: LILIANA MICHAELS EMR#: [id number] : 1965Acct:[id number] Age/Sex: 58 / MADM Date: 10/10/23 Loc: LAB Attending Dr: Ishmael Simon M.D. Ordering Physician: Ishmael Simon M.D. Date of Service: 10/10/23 Procedure(s): XR shoulder KRISTOPHER min 2V Accession Number(s): [id number] cc: Ishmael Simon M.D. The [address] [address] Patient Name: LILIANA MICHAELS MRN: [id number] date: 1965 Sex: M Assigned Patient Location: LAB Current Patient Location: Accession/Order Number: [id number] Exam Date: 10/10/2023 12:45 Report Date: 10/11/2023 11:34 At the request of: ISHMAEL SIMON Procedure: XR shoulder KRISTOPHER min 2V [...] M.D. Signed By:10/11/23 1137 DD/ 1134 TD/TT: Medical Billing Service: Authorizing ProviderResult TypeResult StatusMarc Mac BENJAMIN XR PROCEDURES Final Result documented in this encounter Visit Diagnoses Not on filedocumented in this encounter Care Teams Team MemberRelationshipSpecialtyStart DateEnd Date Ishmael Simon MD PCP - GeneralFamily Medicine10/10/23 Steve Pyle MD [address] [address] [facility]06/09/23documented as of this encounter
--- OUTSIDE RECORDS SUMMARY | 2025-03-18 11:05 | XMS_ITS | Clinical Summary ---
Author Organization [facility] Address [address] [place] [address] Phone Care Team Providers Care Bobbin Disker Name Role Phone Ishmael Watts MD Primary Care Provider + Amador Dickens MD Unavailable [phone] Allergies No known active allergies Medications MedicationSigDispense QuantityRefillsLast FilledStart DateEnd DateStatus oxygen (O2) gas therapy 2l at bedtimeActive albuterol (Ventolin HFA) 90 mcg/actuation inhaler Inhale 2 puffs every 4 hours if needed.Active cetirizine (ZyrTEC) 10 mg tablet Take 1 tablet (10 mg) by mouth once daily at bedtime.Active kvqfonrcfhl-cflvzsyfx-nwbhrvwj (TRELEGY-ELLIPTA) 100-62.5-25 mcg blister with device Inhale 1 puff. Use as directedActive furosemide (Lasix) 40 mg tablet Take 1 tablet (40 mg) by mouth 2 times a day.Active Singulair 10 mg tablet Take 1 tablet (10 mg) by mouth once daily at bedtime.Active nabumetone (Relafen) 500 mg tablet Take 1 tablet (500 mg) by mouth 2 times a day.Active omeprazole (PriLOSEC) [address] capsule Take 1 capsule (40 mg) by mouth once daily.Active oxyCODONE-acetaminophen (Percocet) 7.5-325 mg tablet Take 1 tablet by mouth every 6 hours if needed for severe pain (7 - 10). 03/30/2021ctive Aldactone 100 mg tablet Take 1 tablet (100 mg) by mouth once daily with breakfast.Active baclofen (Lioresal) 10 mg tablet TAKE 1/2 TO 1 TABLET BY MOUTH TWICE A DAY10/24/2023ctive rosuvastatin (Crestor) 10 mg tablet Indications:Peripheral vascular disease, unspecified,Hyperlipidemia, unspecified hyperlipidemia typeTake 1 tablet (10 mg) by mouth once daily. 90 tablet 5006/13/2025ctive topiramate (Topamax) 25 mg tablet Take 1 tablet (25 mg) by mouth 2 times a day.Active Active Problems ProblemNoted DateDiagnosed DateFormer eilqfe4506/13/20242140Kmxmegsawpccrq89/05/2025 Mild coronary artery iccvilr6106/13/20244338Pwpuomcvm91/25/2024Other ydfffak5707/22/2023 BMI 37.0-37.9, adult07/13/2023Sick sinus meeervpv56/06/2024hronotropic mrqtwhuqqmcp08/06/2024OPD (chronic obstructive pulmonary disease)05/23/2023 Current lvpipy3805/23/20235393Jcduchn49/15/2024Sinus xudwytviegm19/15/2024Obstructive sleep apnea (adult) (pediatric)04/13/2023eripheral vascular disease, egpfyymwvvl15/06/2023Type 2 diabetes mellitus with hyperglycemia, without long- term current use of ejofier7504/13/2023 Overview (07/22/2023): Last Assessment & Plan: Not checking BS and due for A1C. Stick to ADA diet and limit carbs. Essential hypertension, oetlci4705/13/2022 Overview (07/22/2023): Last Assessment & Plan: BP controlled and monitor PRN. Resolved Problems ProblemNoted DateDiagnosed DateResolved DateAbnormal stress test05/23/2023 12/01/2023hronic diastolic heart otiktvw58 Overview (07/22/2023): Last Assessment & Plan: Occasional edema and use lasix PRN. Elevate legs PRN. Encounters DateTypeDepartmentCare GumhCzafqgunqxp36/30/2025 1:27 PM EDT - 03/07/2025 11:59 PM EDTHospital Encounter [facility] [address] [place] [address] Cardiac pacemaker in situ Discharge Disposition: Home03/01/2025Telephone [facility] [address] [facility] [address] [place] [address] Myah Carias LPN from Last 3 Months Family History Medical HistoryRelationNameCommentsNo Known ProblemsFatherMental illnessMother RelationNameStatusCommentsFatherDeceasedMotherDeceased Social History Tobacco UseTypesPacks/DayYears UsedDateSmoking Tobacco: GkvthxTxymfduysc726 Started: 2024Smokeless Tobacco: Never Tobacco Cessation:Counseling Given: Not Answered Alcohol UseStandard Drinks/WeekCommentsNever0 (1 standard drink = 0.6 oz pure alcohol)Sex and Gender InformationValueDate RecordedSex Assigned at BirthNot on fileLegal SjeTxgc24/26/2022 1:30 AM ESTGender IdentityNot on fileSexual OrientationNot on file Last Filed Vital Signs Vital SignReadingTime TakenCommentsBlood Tkdzrgzd803/7007 9:04 AM EDT Vgxqa271311/28/2024 9:04 AM XJVCvxcrnonbun46.4 ??C (97.5 ??F)08/05/2023 12:13 PM EDTRespiratory Pxfh453208/05/2023 5:30 PM EDTOxygen Clhtvcwodo37%08/05/2023 5:30 PM EDTInhaled Oxygen Concentration--Ffgimk329 kg (225 lb)11/28/2024 9:04 AM EDT Dbiqph302.6 cm (5' 4 )11/28/2024 9:04 AM EDTBody Mass Index38.62011/28/2024 9:04 AM EDT Plan of Treatment DateTypeDepartmentCare Team (Latest Contact Info)Zjblpyyxvap13/07/2026 8:40 AM ESTOffice Visit [address] [place] [address] Patti Ferrer MD [address] [facility], [address] [place] [address] 06/04/2025 8:00 AM ESTAppointment [facility] [address] [place] [address] 06/04/2025 8:30 AM ESTOffice Visit [facility] [address] [facility] [address] [place] [address] Vaishnavi Lam PA-C [address], [address] [place], [place] [id number] Health MaintenanceDue DateLast DoneCommentsCT Kjvuboltemtr1964Diabetes: Hemoglobin A1C1964Diabetes: Urine Protein Wponqfxio1964FIT-DNA (Cologuard)1964FIT1964HIV Nrefndxcy1964Lipid Panel1965 Medicare Annual Wellness Visit (AWV)1965 5638Wphnjigbwyxfk1964MMR Vaccines (1 of 1 - Standard series)02/21/1965Diabetes: Retinopathy Screening 02/21/1974Hepatitis C Csujdsnqp65/16/1982Pneumococcal Vaccine (1 of 2 - PCV) 02/21/1983DTaP/Tdap/Td Vaccines (1 - Tdap)02/21/1986PSA Prostate Cancer Orhcgruei29/16/2014RSV High Risk: (Elderly (60+) or Population) (1 - Risk 50-74 years 1-dose series)02/21/2014Zoster Vaccines (1 of 2)02/21/2014 Creatinine Level503/, 07/29/20235977Fquowlprsrmqhk71/29/2025 08/05/2023otassium Level5008/05/2023, 07/29/2023Influenza Vaccine (#1) 2024OVID-19 Vaccine (1 - season)0536Gnsflxemcaa05/17/2030 08/24/2019Colorectal Cancer Fzrzzyocx96/17/2030HIB VaccinesAged OutNo longer eligible based on patient's age to complete this topicHPV VaccinesAged OutNo longer eligible based on patient's age to complete this topicHepatitis A VaccinesAged OutNo longer eligible based on patient's age to complete this topic Hepatitis B VaccinesAged OutNo longer eligible based on patient's age to complete this topicIPV VaccinesAged OutNo longer eligible based on patient's age to complete this topicMeningococcal VaccineAged OutNo longer eligible based on patient's age to complete this topicRotavirus VaccinesAged OutNo longer eligible based on patient's age to complete this topic Medical Devices ImplantedTypeAreaManufacturerDevice IdentifierShelf Expiration DateModel / Serial / LotLead, Capsurefix Novus, 52 Cm - [id number] Implanted:Qty: 1 on 08/05/2023 by [facility]iac PacemakerLeft: ChestMEDTRONIC [id number] / [id number] / [id number], Capsurefix Novus, 45 Cm - [id number] Implanted:Qty: 1 on 08/05/2023 by [facility] Dickens [facility]iac PacemakerLeft: ChestMEDTRONIC [id number] / [id number] / [id number], Dual Chamber, Kae Mri Xt Dr - [id number] Implanted:Qty: 1 on 08/05/2023 by [facility] Dickens [facility]iac PacemakerLeft: ChestMEDTRONIC [id number] / [id number] / [id number] Procedures Procedure NamePriorityDate/TimeAssociated DiagnosisCommentsCARDIAC DEVICE CHECK - REMOTE - USABQNLDFYyokuth46/30/2025 1:36 PM EDT Cardiac pacemaker in situ TRANSTHORACIC ECHO (TTE) ZTPGUICEVSNE54/29/2024 1:26 PM EDT Chronotropic incompetence Abnormal stress test Dyspnea Bradycardia, unspecified BASIC METABOLIC ANKCRXAQE96/29/2024 12:18 PM EDT from Last 3 Months or Most Recently Relevant to Health Maintenance Results * CARDIAC DEVICE CHECK - REMOTE - PACEMAKER (03/07/2025 1:36 PM EDT)Anatomical RegionLateralityModalityMonitor/DeviceSpecimen (Source)Anatomical Location / LateralityCollection Method / VolumeCollection TimeReceived Time03/07/2025 5:37 AM EDT Narrative Authorizing ProviderResult TypeResult StatusAlbertmorris Dickens MDCV IMPLANTABLE CARDIAC DEVICE PROCEDURESFinal Result * TRANSTHORACIC ECHO (TTE) COMPLETE (08/05/2023 1:26 PM EDT)ComponentValueRef RangeTest MethodAnalysis TimePerformed AtPathologist SignatureAV mn grad4.0 mmHgSYNGOAV pk vel1.43m/sSYNGOLV EF60%SYNGOLVOT diam2.00cmSYNGOMV E/A ratio 0.88SYNGOTricuspid annular plane systolic excursion3.6cmSYNGOMV avg E/e' ratio 7.78SYNGOLA vol index A/L29.3ml/c3LRHNOZE free wall pk S'15.40cm/sSYNGORVSP 23.2nkJqXKMRZOQGRm4.28cmSYNGOAortic Valve Area by Continuity of Peak Velocity 2.09mh5QIWYGEU pk grad8.2mmHgSYNGOAortic Valve Area by Continuity of VTI2.62 mn6VEHWRCB A4C EF62.4SYNGOSpecimen (Source)Anatomical Location / Laterality Collection Method / VolumeCollection TimeReceived Time08/05/2023 11:46 AM EDT Narrative SYNGO - 08/05/2023 2:30 PM EDT ? [place] [address] TRANSTHORACIC ECHOCARDIOGRAM REPORT Patient Name: ?LILIANA MICHAELS ? Reading Physician: ?[id number] Jai Morris ?MD, FACC Study Date: ?08/05/2023 ?Ordering Provider: ?[id number] ANA M M ?STANLEY MRN/PID: ? [id number] ? Fellow: Accession#: ?[id number] ? Nurse: Date of /Age: 10 1965 / 58 ?Housekeeping Aid: ?Eli ? years ?Mccarthy-Brown RDCS Gender: ?M ?Additional Staff: Height: ?162.56 cm ?Admit Date: Weight: ?90.72 kg ? Admission Status: ? Outpatient BSA / BMI: ? 1.96 m2 / 34.33 ?Department Location: ??[facility] ? kg/m2 ?Echo Lab Blood Pressure: 128 /73 mmHg Study Type: ?TRANSTHORACIC ECHO (TTE) COMPLETE Diagnosis/ICD: Bradycardia, unspecified-R00.1 Indication: ?Abnormal EKG, Pre-EP CPT Codes: ? Echo Complete w Full Doppler-52458 Study Detail: The following Echo studies were performed: 2D, M-Mode, color flow ?and Doppler. Technically challenging study due to body [...] normal. There is no indication of pulmonic valveregurgitation. Pericardium: There is a trivial pericardial effusion. Aorta: The aortic root is normal. Densely calcified ascending aorta though not dilated and no evidence of mobile plaque. CONCLUSIONS: 1. Left ventricular systolic function is normal with a 60% estimated ejection fraction. 2. Spectral Doppler shows an impaired relaxation pattern of left ventricular diastolic filling. 3. Normal RV size and function ?Normal RVSP. 4. Normal mitral valve. 5. Mildly thickened aortic valve without significant stenosis or regurgitation. 6. Severe sinus bradycardia heart rate 33-43 throughout. QUANTITATIVE DATA SUMMARY: 2D MEASUREMENTS: ?Normal Ranges: Ao Root d: ? 2.70 cm ?(2.0-3.7cm) LAs: ? 4.50 cm ?(2.7-4.0cm) IVSd: ?1.08 cm ?(0.6-1.1cm) LVPWd: ? 1.15 cm ?(0.6-1.1cm) LVIDd: ? 5.28 cm ?(3.9-5.9cm) LVIDs: ? 3.77 cm LV Mass Index: 117.9 g/m2 LV % FS ?28.6 % LA VOLUME: ?Normal Ranges: LA Vol A4C: ?56.3 ml ?(22+/-6mL/m2) LA Vol A2C: ?55.2 ml LA Vol BP: ? 57.2 ml LA Vol Index A4C: ??28.8ml/m2 LA Vol Index A2C: ??28.2 ml/m2 LA Vol Index BP: ?? 29.3 ml/m2 LA Area A4C: ? 19.6 cm2 LA Area A2C: ? 18.9 cm2 LA Major Elbert A4C: 5.8 cm LA Major Elbert A2C: 5.5 cm LA Volume Index: ?? 27.0 ml/m2 AORTA MEASUREMENTS: ? Normal Ranges: Asc Ao, d: 2.90 cm (2.1-3.4cm) LV SYSTOLIC FUNCTION BY 2D PLANIMETRY (MOD): ?Normal Ranges: EF-A4C View: 62.4 % (>=55%) EF-A2C View: 55.6 % EF-Biplane: ??59.7 % LV DIASTOLIC FUNCTION: ? Normal Ranges: MV Peak E: ?0.83 m/s (0.7-1.2 m/s) MV Peak A: ?0.94 m/s (0.42-0.7 m/s) E/A Ratio: ?0.88 ? (1.0-2.2) MV e' 0.11 m/s (>8.0) MV lateral e' 0.11 m/s MV medial e' ??0.09 m/s E/e' Ratio: 7.78 (<8.0) MITRAL VALVE: ?Normal Ranges: MV DT: 293 msec (150-240msec) AORTIC VALVE: ?Normal Ranges: AoV Vmax: 1.43 m/s (<=1.7m/s) AoV Peak P.2 mmHg (<20mmHg) AoV Mean PG: ? 4.0 mmHg (1.7-11.5mmHg) LVOT Max Vaughn: 1.10 m/s (<=1.1m/s) AoV VTI: ? 35.20 cm (18-25cm) LVOT VTI: ?29.30 cm LVOT Diameter: ? 2.00 cm ??(1.8-2.4cm) AoV Area, VTI: ? 2.62 cm2 (2.5-5.5cm2) AoV Area,Vmax: ? 2.42 cm2 (2.5-4.5cm2) AoV Dimensionless Index: 0.83 RIGHT VENTRICLE: TAPSE: 35.9 mm RV s' ??0.15 m/s TRICUSPID VALVE/RVSP: ?Normal Ranges: Peak TR Velocity: 2.26 m/s RV Syst Pressure: 23.4 mmHg (< 30mmHg) PULMONIC VALVE: ?Normal Ranges: PV Accel Time: 158 msec (>120ms) PV Max Vaughn: ?1.3 m/s ??(0.6-0.9m/s) PV Max PG: ? 6.6 mmHg [id number] Jai Morris MD, [facility] Electronically signed on 08/05/2023 at 2:30:14 PM Final Procedure Note Jai Morris MD - 08/05/2023 [place] [address] TRANSTHORACIC ECHOCARDIOGRAM REPORT Patient Name: LILIANA MICHAELS Reading Physician: [id number] Long MD, [facility] Study Date: 08/05/2023 Ordering Provider: [id number] SALINAS MRN/PID: [id number] Fellow: Nurse: Date of /Age: 10 1965 Housekeeping Aid: Eli Gibbons [facility] Gender: M Additional Staff: Height: 162.56 cm Admit Date: Weight: 90.72 kg Admission Status: Outpatient BSA / BMI: 1.96 m2 / 34.33 Department Location: [facility]/ Echo Lab Blood Pressure: 128 /73 mmHg Study Type: TRANSTHORACIC ECHO (TTE) COMPLETE Diagnosis/ICD: Bradycardia, unspecified-R00.1 Indication: Abnormal EKG, Pre-EP CPT Codes: Echo Complete w Full Doppler-72014 Study Detail: The following Echo studies were [...] LA Area A2C: 18.9 cm2 LA Major Elbert A4C: 5.8 cm LA Major Elbert A2C: 5.5 cm LA Volume Index: 27.0 [...] 1.3 m/s (0.6-0.9m/s) PV Max P.6 mmHg [id number] Jai Morris MD, [facility] Electronically signed on 08/05/2023 at 2:30:14 PM Final Authorizing ProviderResult TypeResult StatusAna M Dodge Stanley SYSTEMS TEST ENGINEER-CNPCV ECHO PROCEDURESFinal ResultPerforming OrganizationAddressCity/State/ZIP CodePhone Number SYNGO * Basic Metabolic Panel (08/05/2023 12:18 PM EDT)ComponentValueRef RangeTest MethodAnalysis TimePerformed AtPathologist IcsqiqialRvjddkj1618 - 99 mg/dL LAB CHEMISTRY METHOD 08/05/2023 1:29 PM [facility] ZDSAtsmoq953318 - 145 mmol/L LAB CHEMISTRY METHOD 08/05/2023 1:29 PM [facility] LABPotassium4.03.5 - 5.3 mmol/L LAB CHEMISTRY METHOD 08/05/2023 1:29 PM [facility] LXTPhrplbxq41442 - 107 mmol/L LAB CHEMISTRY METHOD 08/05/2023 1:29 PM [facility] KGVLverznjjkrx6644 - 32 mmol/L LAB CHEMISTRY METHOD 08/05/2023 1:29 PM [facility] LABAnion Ibo1694 - 20 mmol/L LAB CHEMISTRY METHOD 08/05/2023 1:29 PM [facility] LABUrea Yenfpetw961 - 23 mg/dL LAB CHEMISTRY METHOD 08/05/2023 1:29 PM [facility] LABCreatinine1.120.50 - 1.30 mg/dL LAB CHEMISTRY METHOD 08/05/2023 1:29 PM [facility] JULjTPF55>60 mL/min/1.73m*2 LAB CHEMISTRY METHOD 08/05/2023 1:29 PM [facility] LABComment: Calculations of estimated GFR are performed using the 2020 CKD-EPI Study Refit equation without therace variable for the IDMS-Traceable creatinine methods. https://jasn.asnjournals.org/content//ASN.2817721418 Calcium9.68.6 - 10.3 mg/dL LAB CHEMISTRY METHOD 08/05/2023 1:29 PM [facility] LABSpecimen (Source)Anatomical Location / LateralityCollection Method / VolumeCollection TimeReceived TimeBlood Venous blood specimen / UnknownVenipuncture / Tnosrmb5508/05/2023 12:18 PM EDT 08/05/2023 12:52 PM EDT Narrative Authorizing ProviderResult TypeResult StatusAna M Dodge Stanley SYSTEMS TEST ENGINEER-CNPLAB BLOOD ORDERABLESFinal ResultPerforming OrganizationAddressCity/State/ZIP CodePhone Number [facility] [address] [place] [address] from Last 3 Months or Most Recently Relevant to Health Maintenance Insurance Advance Directives For more information, please contact: [phone] (Available ) * Full Code (Latest Code Status on File) Date ActivatedDate InactivatedComments08/05/2023 12:02 PMQuestionAnswerComments Plan of Care:* Code Status Discussion Not Completed Decision Maker:* Provider Rationale:* Patient condition does not warrant discussion Care Teams Team MemberRelationshipSpecialtyStart DateEnd Date Ishmael Watts MD [address] [place] [address] PCP - GeneralFamily Medicine06/29/23 Amador Dickens MD [address] [facility] [address] [place] [address] CardiologistElectrophysiology05/17/24
--- OUTSIDE RECORDS SUMMARY | 2025-03-18 11:06 | XMS_ITS | CCD ---
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 Armstrong Attending Unavaila ble NADJANEE, DR [...] LANE, Ishmael Vallejo Primary Care Provider Goldberg-Ell[employer]ott IT ARCHITECT-NEGATIVE DEVELOPER, Naima E Unavailable Ishmael Simon MD Primary Care Provider Ishmael Simon MD Primary Care Provider Rubio MIXER WET POUR-C, Danielle Priest Attending Provider [phone] Danielle Bergeron Attending Unavailable Ishmael Simon Primary Care Unavailable Danielle Bergeron Admitting Unavailable Danielle Bergeron Attending Unavailable Ishmael Simon Primary Care Unavailable Danielle Bergeron Admitting Unavailable Amador Son MD Unavailable [phone], Ishmael Primary Care Provider [phone] Ishmael Simon MD Primary Care Provider Amador Son MD Unavailable Amy LANE, Jong Villalobos Attending Unavailable Amy LANE, Jong Villalobos Attending Unavailable Amy LANE, Jong Villalobos Attending Unavailable NADERER, ISHMAEL Attending Unavailable NADERER, ISHMAEL Attending Unavailable NADERER, ISHMAEL Attending Unavailable NADERER, ISHMAEL Attending Unavailable NADERER, ISHMAEL Attending Unavailable NADERER, ISHMAEL Attending Unavailable NADERER, ISHMAEL Attending Unavailable AIDA, HORTENSIA Attending Unavailable AIDA, HORTENSIA Referring Unavailable AIDA, HORTENSIA Referring Unavailable AMADOR SON Attending Unavailable ISHMAEL SIMON Primary Care Unavailkait e AMADOR SON Attending Unavailable NAIMA WRIGHT E Referring Unavaila ISHMAEL Dukes Primary Care Unavailabl e VALENTINO TY Attending Unavailable VALENTINO TY Referring Unavailable ISHMAEL SIMON Primary Care UnavailIshmael Pina MD Primary Care Provider Amador Son MD Unavailable [phone] Ishmael Simon MD Primary Care Provider Ishmael Simon MD Unavailable Ishmael Simon MD Primary Care Provider NAIMA WRIGHT Referring Unavaila ISHMAEL Dukes Primary Care UnavailAMADOR Saunders Referring Unavailable ISHMAEL SIMON Primary Care UnavailAMADOR Saunders Referring Unavailable ISHMAEL SIMON Primary Care UnavailAMADOR Saunders Referring Unavailable ISHMAEL SIMON Primary Care Unavailabl e Medications Current Medications MedicationDrug Class(es)DatesSig (Normalized)Sig (Original)acetaminophen 325 mg oral tablet (1 source)Start: 67-51-7725qeix 1 tablet by mouth every four hours as needed acetaminophen (Tylenol) tablet 650 mgacetaminophen 325 mg / oxyCODONE hydrochloride 7.5 mg oral tablet (20 sources)Opioid AgonistStart: 12-01-2023 End: 57-66-8436ktru 1 tablet by mouth four times daily as needed for pain oxyCODONE-acetaminophen (Percocet) 7.5-325 MG tablet Indications: Degeneration of lumbar intervertebral disc Take 1 tablet by mouth 4 (four) times a day as needed for severe pain or moderate pain 120tablet 12/17/2024 01/16/2025 Active Start: 17-62-7964acce 1 tablet by mouth four times daily as neededoxyCODONE- Acetaminophen 7.5-325 MG Oral Tablet TAKE 1 TABLET BY MOUTH FOUR TIMES A DAY NEEDED Quantity: 120 Refills: 0 Ordered: 01-Apr-2021 DO Start : 30-Mar-2021 ActiveStart: 57-78-2558emfTLWDAT-acetaminophen (PERCOCET) 7.5-325 mg per tablet 08/16/2019 ActiveStart: 21-16-4035vhuk 1 tablet by mouth every six hours as neededoxyCODONE-acetaminophen (Percocet) 7.5-325 mg tablet Take 1 tablet by mouth every 6 hours if neededfor severe pain (7 - 10). 03/30/2021 ActiveStart: 06-19-2018 End: 48-31-2647royo 1 tablet by mouth every four to six hours as needed for pain Oxycodone-Acetaminophen 5-325 mg Tablet Discontinued 1 TAB PO EVERY 4-6 HOURS as needed for Pain June 19, 2018 12:00am June 22, 2018 9:[id number] 200 actuat albuterol 0.09 mg/actuat metered dose inhaler (20 sources)beta2-Adrenergic AgonistStart: 06-06-2024 End: 75-93-0573djqb 2 puff(s) by inhalation every four hours for wheezing albuterol HFA 90 mcg/act inhaler Indications: Chronic obstructive pulmonary disease with acute exacerbation (HCC) Inhale 2 puffs every 4 (four) hours if needed for wheezing 18 g 3 06/06/2024 ActiveStart: 06-23-2018 End: 29-81-6555Ezttsjeab Sulfate 90 mcg/actuation aerosol powdr breath activated Discontinued 2 INH INHALATION Four times daily 06 07June 23, 2018 12:00am October 19, 2018 11:00pm October 20, 2018 11:02pmtake 2 puff(s) by inhalation every four hoursalbuterol (Ventolin HFA) 90 mcg/actuation inhaler Inhale 2 puffs every 4 hours if needed. Activeaspirin 81 mg delayed release oral tablet (20 sources)Platelet Aggregation Inhibitor, Nonsteroidal Anti-inflammatory Drug Start: 12-01-2023 End: 81-04-8297wttc 1 tablet by mouth once dailyaspirin 81 mg EC tablet Indications: Chronotropic incompetence Take 1 tablet (81 mg) by mouth once d aily. 12/01/2023 11/30/2024 Activebaclofen 10 mg oral tablet (20 sources)gamma-Aminobutyric Acid-ergic AgonistStart: 30-63-6710ankh 0.5-1 tablets by mouth twice dailybaclofen (Lioresal) 10 MG tablet TAKE 1/2 TO 1 TABLET BY MOUTH TWICE A DAY 01/27/2023 Activetake 1 tablet by mouth three times dailybaclofen (LIORESAL) 10 mg tablet Take 1 tablet (10 mg total) by mouth 3 (three) times a day. Activecephalexin 500 mg oral capsule (14 sources)Cephalosporin AntibacterialStart: 41-40-6855nhiafdrugw (Keflex) 500 MG capsule 07/30/2024 Activecetirizine hydrochloride 10 mg oral tablet (20 sources)Histamine-1 Receptor AntagonistStart: 49-92-7958mpgq 1 tablet by mouth once dailycetirizine (ZyrTEC) 10 MG tablet Indications: Allergic rhinitis due to pollen TAKE 1 TABLET BY MOUTH EVERY DAY 90 tablet 3 09/05/2024 Active cholecalciferol 0.05 mg oral tablet (7 sources)Vitamin DStart: 07-23-2019 End: 91-62-8043xnts 1 tablet by mouth once dailycholecalciferol, vitamin D3, 2,000 units tablet Take 1 tablet by mouth daily. 07/23/2019 12/07/2023 DiscontinuedStart: 44-96-8806scly 1 tablet by mouth before mealtime Cholecalciferol (Vitamin D3) 50 mcg (2,000 unit) tablet Active 50 MCG PO Before meals July 06, 2019 12:00amtake 1 capsule by mouth once dailyVitamin D 50 MCG (2000 UT) Oral Capsule TAKE 1 CAPSULE Daily Quantity: 90 Refills: 0 Ordered: 28-Jan-2022 DO Activeciprofloxacin 500 mg oral tablet (3 sources)Quinolone AntimicrobialStart: 02-06-2024 End: 36-94-9494rjdy 1 tablet by mouth in the morningciprofloxacin (Cipro) 500 MG tablet Indications: Acute prostatitis Take 1 tablet (500 mg) by mouth in the morning and 1 tablet (500 mg) before bedtime. Do all this for 14 days. 28 tablet 02/06/2024 02/20/2024 Active0.5 ml dulaglutide 1.5 mg/ml auto-injector (7 sources)GLP-1 Receptor AgonistStart: 04-24-2024 End: 48-81-6217haqzkb 0.75 mg by subcutaneous injection every weekDulaglutide (Trulicity) 0.75 MG/0.5ML solution auto-injector Indications: Type 2 diabetes mellitus with hyperglycemia, without long-term current use of insulin ([facility]) Inject 0.75 mg under the skin1 (one) time per week 2 mL 5 04/24/2024 06/06/2024 Discontinued2 ml dupilumab 150 mg/ml auto-injector (1 source)Interleukin-4 Receptor alpha AntagonistStart: 06-17-2022 End: 56-35-7300JUXKIDGF PEN 300 mg/2 mL pen injector SUBQ injection pen Inject under the skin. 1 Injection every 2weeks. 06/17/2022 12/07/2023 Ymiuuybsdgrc45 actuat fluticasone furoate 0.1 mg/actuat / umeclidinium 0.0625 mg/actuat / vilanterol 0.025 mg/actuat dry powder inhaler (20 sources)Anticholinergic, Corticosteroid, beta2-Adrenergic AgonistStart: 26-99-1134ICSHCJZ ELLIPTA 100-62.5-25 mcg blister with device 08/17/2019 Active Start: 98-19-3393Zxaayedqziz-Umeclidin-Vilanter (Trelegy Ellipta) 100-62.5-25 mcg blister with device Active 1 MCG INHALATION As Directed July 06, 2019 12:00amtake 1 dose by inhalation in the iafbdvtBbtwmxdbokw-Adkhpkjro-Ekkijq (Trelegy Ellipta) 100-62.5-25 MCG/ACT aerosol powder Inhale 1 Dose in the morning. Phonqssztgpmtdpxs-cuzkgdmir-nhoyzstd (TRELEGY-ELLIPTA) 100-62.5-25 mcg blister with device Inhale 1 puff.Use as directed Activefurosemide 40 mg oral tablet (20 sources)Loop DiureticStart: 21-41-1885fjce 1 tablet by mouth at bedtime furosemide (Lasix) 40 MG tablet Indications: Chronic diastolic heart failure (HCC) TAKE 1 TABLET (40 MG) BY MOUTH IN THE MORNING AND AT BEDTIME 180 tablet 3 06/18/2024 ActiveStart: 06-19-2018 End: 58-79-7257qmek 1 tablet by mouth once dailyFurosemide 40 mg Tablet Discontinued 40 MG PO Daily June 19, 2018 12:00am June 23, 2018 12:19pmgabapentin 300 mg oral capsule (20 sources)Anti-epileptic AgentStart: 07-06-2019 End: 65-29-5656rust 1 capsule by mouth once daily at bedtimegabapentin (Neurontin) 300 MG capsule Indications: Other intervertebral disc degeneration, lumbar region , Degeneration of lumbar or lumbosacral intervertebral disc TAKE 1 CAPSULE BY MOUTH EVERYDAY AT BEDTIME 30 capsule 2 02/03/2024 07/23/2024 Discontinuedibuprofen 200 mg oral tablet (3 sources)Nonsteroidal Anti-inflammatory Drugtake 1 tablet by mouth every six hours as needed for painibuprofen (ADVIL,MOTRIN) 200 mg tablet Take 1 tablet (200 mg total) by mouth every 6 (six) hours asneeded for pain. Active levoFLOXacin 750 mg oral tablet (2 sources)Quinolone AntimicrobialStart: 07-23-2024 End: 36-73-2379heol 1 tablet by mouth once dailylevoFLOXacin (Levaquin) 750 MG tablet Indications: Chronic obstructive pulmonary disease with acuteexacerbation (CMS/HCC) Take 1 tablet (750 mg) by mouth Daily for 7 days 7 tablet 07/23/2024 07/30/2024 Activemontelukast 10 mg oral tablet (20 sources)Leukotriene Receptor AntagonistStart: 05-61-2690pnypcjvlosw (SINGULAIR) 10 mg tablet 08/12/2019 Activenabumetone 500 mg oral tablet (20 sources)Nonsteroidal Anti-inflammatory DrugStart: 07-06-2019 End: 13-50-8528mshd 1 tablet by mouth twice dailynabumetone (Relafen) 500 MG tablet Indications: Carpal tunnel syndrome, bilateral upper limbs , Carpal tunnel syndrome TAKE 1 TABLET BY MOUTH TWICE A DAY 180 tablet 3 08/29/2024 Activetake 1 tablet by mouth once dailyNabumetone 500 MG Oral Tablet TAKE 1 TABLET EVERY 12 HOURS DAILY. Quantity: 0 Refills: 0 Ordered: 28-Jan-2022 DO Activeomeprazole 40 mg delayed release oral capsule (20 sources)Proton Pump InhibitorStart: 39-73-3309qdgz 1 capsule by mouth once dailyomeprazole (PriLOSEC) [address] capsule Indications: Alcoholic gastritis without bleeding , Alcoholic gastritis TAKE 1 CAPSULE BY MOUTH EVERY DAY 90 capsule 1 11/16/2024 ActiveStart: 33-48-3430luog 1 tablet by mouth once daily Omeprazole 20 mg Tablet,Delayed Release (Dr/Ec) Active 20 MG PO Daily June 19, 2018 12:00am2 ml ondansetron 2 mg/ml injection (1 source)Serotonin-3 Receptor AntagonistStart: 66-44-5370kjps 4 mg intravenously every eight hours as neededondansetron (Zofran) injection 4 mg oxygen (O2) gas therapy (18 sources)oxygen (O2) gas therapy 2l at bedtime Activeoxygen (O2) gas therapy 2l at bedtime 0 Activeperflutren lipid microspheres (Definity) injection 0.5-10 mL of dilution (1 source)Start: 60-54-4057wfrlzkorki lipid microspheres (Definity) injection 0.5-10 mL of dilutionpredniSONE 50 mg oral tablet (6 sources)Start: 07-23-2024 End: 52-39-1300qpyh 1 tablet by mouth once dailypredniSONE (Deltasone) 50 MG tablet Indications: Chronic obstructive pulmonary disease with acute ex acerbation (CMS/HCC) Take 1 tablet (50 mg) by mouth Daily for 6 days 6 tablet 07/23/2024 07/29/2024tiveStart: 01-13-2024 End: 06-49-3339wqva 1 tablet by mouth once dailypredniSONE (Deltasone) 50 MG tablet Indications: Chronic obstructive pulmonary disease, unspecifiedCOPD type (CMS/HCC) Take 1 tablet (50 mg) by mouth Daily for 6 days 6 tablet 01/13/2024 01/19/2024 ActiveStart: 01-45-9021Pnckhuhaby 10 mg Tablet Active 60 MG PO Daily July 06, 2019 12:00am administer with food or milkpregabalin 100 mg oral capsule (10 sources)Start: 06-26-2024 End: 37-60-4422vzox 1 capsule by mouth in the morningpregabalin (Lyrica) 100 MG capsule Take 100 mg by mouth in the morning and 100 mg before bedtime. 10/23/2024 Discontinuedrosuvastatin calcium 10 mg oral tablet (20 sources)HMG-CoA Reductase InhibitorStart: 06-13-2024 End: 10-65-3564isdx 1 tablet by mouth once dailyrosuvastatin (Crestor) 10 mg tablet Indications: Peripheral vascular disease, unspecified , Hyperlipidemia, unspecified hyperlipidemia type Take 1 tablet (10 mg) by mouth once daily. 90 tablet 3 06/13/2024 06/13/2025 Active0.25 mg, 0.5 mg dose 1.5 ml semaglutide 1.34 mg/ml pen injector (3 sources)Start: 53-12-4865pajaqzbekdm (Ozempic, 0.25 or 0.5 MG/DOSE,) 2 MG/1.5ML solution pen-injector Indications: Type 2 diabetes mellitus with hyperglycemia, without long-term current use of insulin (CMS/HCC) 0.25 mg SC wee kly x 4 weeks, then 0.5 mg weekly 1 each 5 04/24/2024 ActiveStart: 04-24-2024 semaglutide (Ozempic, 0.25 or 0.5 MG/DOSE,) 2 MG/1.5ML solution pen-injector Indications: Type 2 diabetes mellitus with hyperglycemia, without long-term current use of insulin (CMS/HCC) 0.25 mg SC weekly x 4 weeks, then 0.5 mg weekly 1 each 5 04/24/2024 ActiveStart: 07-33-9632jdaphffwxwk (Ozempic, 0.25 or 0.5 MG/DOSE,) 2 MG/1.5ML solution pen-injector Indications: Type 2 diabetes mellitus with hyperglycemia, without long-term current use of insulin (CMS/HCC) 0.25 mg SC weekly x 4 weeks, then 0.5 mg weekly 1 each 5 04/24/2024 Activespironolactone 100 mg oral tablet (20 sources)Aldosterone AntagonistStart: 37-92-8982yfio 1 tablet by mouth once dailyspironolactone (Aldactone) 100 MG tablet Indications: Essential hypertension, benign TAKE 1 TABLET BY MOUTH EVERY DAY 90 tablet 5 04/09/2024 ActiveStart: 59-90-2489fplm 1 tablet by mouth in the morningspironolactone (ALDACTONE) 50 mg tablet Take 1 tablet (50 mg total) by mouth in the morning. 08/12/2019 ActiveStart: 17-93-3334Cnvayrltqgysid (Aldactone) 50 mg Tablet Active 25 MG PO Daily 0 June 23, 2018 12:18pmStart: 06-19-2018 End: 30-48-9000dlrw 1 tablet by mouth once dailySpironolactone (Aldactone) 50 mg Tablet Discontinued 50 MG PO Daily June 19, 2018 12:00am June 23, 2018 12:19pmtopiramate 50 mg oral tablet (13 sources)Start: 61-26-6441dxpj 1 tablet by mouth in the morningtopiramate 50 MG tablet Indications: Degeneration of intervertebral disc of lumbar region with discogenic back pain and lower extremity pain Take 50 mg by mouth in the morning and 50 mg before bedtime. 60 tablet 5 12/24/2024 ActiveStart: 62-15-7393hpnt 1 tablet by mouth in the morningtopiramate 50 MG tablet Indications: Degeneration of intervertebral disc of lumbar region with discogenic back pain and lower extremity pain Take 50 mg by mouth in the morning and 50 mg before bedtime. 60 tablet 5 12/24/2024 ActiveStart: 10-23-2024 End: 78-48-9455xked 1 tablet by mouth in the morningtopiramate (Topamax) 25 MG tablet Indications: Degeneration of intervertebral disc of lumbar regionwith discogenic back pain and lower extremity pain Take 1 tablet (25 mg) by mouth in the morning and 1 tablet (25 mg) before bedtime. 60 tablet 5 10/23/2024 12/24/2024 Discontinued (Reorder)traMADol hydrochloride 50 mg oral tablet (1 source)Opioid AgonistStart: 44-23-4442ocqx 1 tablet by mouth every six hours as neededtraMADol (Ultram) tablet 50 mg Completed/Discontinued Medications MedicationDrug Class(es)DatesSig (Normalized)Sig (Original)ceFAZolin 1000 mg injection (1 source)Cephalosporin AntibacterialStart: 08-05-2023 End: 71-30-1674hnJFXvjmm in dextrose (iso-os) (Ancef) IVPB 1 gchlorhexidine gluconate 40 mg/ml medicated liquid soap (1 source)Start: 08-05-2023 End: 15-28-3340qybtatxptwfhs (Hibiclens) 4 % liquidStart: 08-05-2023 End: 76-32-9520ubifwldjfhdkj (Hibiclens) 4 % liquidcyclobenzaprine hydrochloride 10 mg oral tablet (2 sources)Muscle RelaxantStart: 09-15-2018 End: 20-00-8485jvsh 1 tablet by mouth three times dailyCyclobenzaprine 10 mg tablet Discontinued 10 MG PO Three times daily 9 September 14, 2018 11:00pm 2019 12:12amDupixent SOPN (1 source)Dupixent SOPN USE DIRECTED Quantity: 0 Refills: 0 Ordered: 14-Jul-2022 DO Activelisinopril 20 mg oral tablet (2 sources)Angiotensin Converting Enzyme InhibitorStart: 06-19-2018 End: 07-84-3725ejmk 1 tablet by mouth once dailyLisinopril 20 mg Tablet Discontinued 20 MG PO Daily June 19, 2018 12:00am June 23, 2018 12:17pmmethocarbamol 750 mg oral tablet (2 sources)Muscle RelaxantStart: 06-19-2018 End: 07-26-2161zqxa 1 tablet by mouth twice daily as needed for pain Methocarbamol (Robaxin-750) 750 mg Tablet Discontinued 750 MG PO Twice daily as needed for Pain June 19, 2018 12:00am July 06, 2019 12:10am methylPREDNISolone 16 mg oral tablet (4 sources)CorticosteroidStart: 06-23-2018 End: 00-42-8212cudl 2 tablets by mouth once daily in the morning Methylprednisolone (Medrol) 16 mg tablet Discontinued 32 MG PO Every morning July 06, 2019 12:09am July 06, 2019 12:09ammupirocin 0.02 mg/mg topical ointment (1 source)RNA Synthetase Inhibitor AntibacterialStart: 08-05-2023 End: 73-88-2928lfrnuozgm (Bactroban) 2 % ointment 1 ApplicationStart: 08-05-2023 End: 02-98-1234uujmdcebg (Bactroban) 2 % ointment 1 ApplicationOxygen (5 sources)Oxygen 2l at bedtime Quantity: 0 Refills: 0 Ordered: 28-Jan-2022 DO Tpfxub7308 ml sodium chloride 9 mg/ml injection (2 sources)Start: 08-05-2023 End: 75-03-4618juitvt chloride 0.9% infusiontamsulosin hydrochloride 0.4 mg oral capsule (2 sources)alpha-Adrenergic BlockerStart: 06-19-2018 End: 04-86-6579cufw 1 capsule by mouth once dailyTamsulosin (Flomax) 0.4 mg Capsule Discontinued 0.4 MG PO Daily June 19, 2018 12:00am July 06, 2019 12:08amtiotropium 0.018 mg inhalation powder (2 sources)AnticholinergicStart: 06-23-2018 End: 79-31-8387qyhd 1 capsule by inhalation once dailyTiotropium [place] (Spiriva With Handihaler) 18 mcg capsule, w/inhalation device Discontinued 1 CAP INHALATION Daily June 23, 2018 12:00am July 06, 2019 12:12am puncture 1 cap using device; one dose = 2 inhalationstriamcinolone acetonide 1 mg/ml topical cream (4 sources)CorticosteroidTriamcinolone Acetonide 0.1 % External Cream USE DIRECTED. Quantity: 0 Refills: 0 Ordered: 28-Jan-2022 DO ActiveVentolin HFA AERS (5 sources)Ventolin HFA AERS USE DIRECTED Quantity: 0 Refills: 0 Ordered: 28-Jan-2022 DO Active Problems Active Problems Problem ClassificationProblemDateDocumented DateEpisodic/ChronicAbdominal pain (8 sources)Unspecified abdominal pain; Translations: [Right lower quadrant pain] Onset: 84-99-0614OgxfxvknVpopofc-related disorders (20 sources)Alcoholic gastritis; Translations: [Alcoholic gastritis without bleeding]Onset: 066101-33-9942HbfhekiXxvfoql dysrhythmias (20 sources)Sick sinus syndrome; Translations: [Sick sinus syndrome]Onset: 947582-02-1420JltmyhaPjthxbe obstructive pulmonary disease and bronchiectasis (20 sources)Chronic obstructive lung disease; Translations: [Chronic airway obstruction, not elsewhere classified]Onset: 588882-55-8295WfrcvfcGyrkwup on above:Problem List clean-up per request of Phys. EHR CmteConduction disorders (20 sources)Chronotropic incompetence; Translations: [Other specified conduction disorders]Onset: 430468-21-5867FfvluqfGnxikucxwt heart failure; nonhypertensive (20 sources)Chronic diastolic heart failure; Translations: [Chronic diastolic (congestive) heart failure]Onset: 04-13-2023 Resolved: 730005-03-7822ThckibkLwbppgut atherosclerosis and other heart disease (20 sources)Coronary arteriosclerosis; Translations: [Atherosclerotic heart disease of [place] coronary artery without angina pectoris]Onset: 06-13-2024 04-60-0575GtotbeaPneggmuu mellitus with complications (20 sources)Type 2 diabetes mellitus with hyperglycemia; Translations: [Type 2 diabetes mellitus]Onset: 151255-79-1627UwllucpBbwuordbh of lipid metabolism (20 sources)Hyperlipidemia, unspecified; Translations: [Dyslipidemia]Onset: 144831-49-4392IoucoyxJzhmspfhy hypertension (20 sources)Essential (primary) hypertension; Translations: [Benign essential hypertension]Onset: 547278-75-1309AavzuxsYvqboii on above:Problem List clean-up per request of Phys. EHR CmteFluid and electrolyte disorders (4 sources)Hyponatremia; Translations: [Hypo-osmolality and hyponatremia] 27-60-1720YotpvxpqPgjmesw on above:Problem List clean-up per request of Phys. EHR CmteHyperplasia of prostate (20 sources)Benign prostatic hypertrophy with outflow obstruction; Translations: [Benign prostatic hyperplasia with lower urinary tract symptoms]Onset: 540807-66-4294HwfvlrlIpugjgzpdas chest pain (2 sources)Atypical chest pain; Translations: [Other chest pain]04-20-2023 EpisodicComment on above:Problem List clean-up per request of Phys. EHR Cmte Nutritional deficiencies (20 sources)Vitamin D deficiency, unspecified; Translations: [Vitamin D deficiency]Onset: 27-70-2869RzqwistZfbupvpcqujunv (20 sources)Osteoarthritis of right hip joint; Translations: [Unilateral primary osteoarthritis, right hip]Onset: 852827-66-2037PeknqxqDmrmk connective tissue disease (4 sources)Neuralgia and neuritis, unspecified; Translations: [NEURALGIA AND NEURITIS UNSPECIFIED]Onset: 87-11-1665KewwyxmuScbqa hereditary and degenerative nervous system conditions (1 source)Dystonia, unspecified; Translations: [DYSTONIA UNSPECIFIED]Onset: 15-24-1605DonhfcxEftle inflammatory condition of skin (20 sources)Plaque psoriasis; Translations: [Psoriasis vulgaris]Onset: 931904-31-8472DwdzoydVhdyj lower respiratory disease (1 source)Dyspnea, unspecified; Translations: [Dyspnea, unspecified]Onset: 12-66-0003MgquldreBpbdj lower respiratory disease (2 sources)Rib pain; Translations: [Pleurodynia]69-11-4831YzykazepBbjunwx on above:Problem List clean-up per request of Phys. EHR CmteOther lower respiratory disease (2 sources)Dyspnea on exertion; Translations: [Other forms of dyspnea]11-09-2023 EpisodicOther male genital disorders (20 sources)Secondary erectile dysfunction; Translations: [Male erectile dysfunction, unspecified]Onset: 242696-93-8898WcbcybgMimzt male genital disorders (2 sources)Male erectile dysfunction, unspecified; Translations: [Impotence of organic origin]08-86-5801BkppmxyFfrtl nervous system disorders (4 sources)Other specified mononeuropathies; Translations: [OTHER SPECIFIED MONONEUROPATHIES]Onset: 48-95-8451FzmpmzwPjpkd nervous system disorders (1 source)Other chronic pain; Translations: [OTHER CHRONIC PAIN]Onset: 78-19-9482MeustbsWxqdh nervous system disorders (20 sources)Ulnar neuropathy of left arm; Translations: [Lesion of ulnar nerve, left upper limb]Onset: 658424-68-1904WohycneOeisj nervous system disorders (20 sources)Carpal tunnel syndrome of left wrist; Translations: [Carpal tunnel syndrome, left upper limb]Onset: 544497-81-8385TjzuktqQcwzt nervous system disorders (1 source)Bilateral carpal tunnel syndrome; Translations: [Carpal tunnel syndrome, bilateral upper limbs]34-15-7669HzuhtynOxyxh nervous system disorders (1 source)Carpal tunnel syndrome; Translations: [Carpal tunnel syndrome, unspecified upper limb]59-00-3957EyisghvYvlvj nutritional; endocrine; and metabolic disorders (5 sources)Obesity; Translations: [Obesity, unspecified]ChronicOther nutritional; endocrine; and metabolic disorders (1 source)Obesity, unspecified; Translations: [OBESITY UNSPECIFIED]Onset: 97-72-5325DrcgskuIpkpf nutritional; endocrine; and metabolic disorders (20 sources)Body mass index 30+ - obesity; Translations: [Body mass index (BMI) 34.0-34.9, adult]Onset: 242133-56-2087XldgqmyBoumr nutritional; endocrine; and metabolic disorders (20 sources)Severe obesity; Translations: [Class 2 severe obesity due to excess calories with serious comorbidity and body mass index (BMI) of 37.0 to 37.9 in adult ([facility])]Onset: 696452-27-9753CkuxfhhFxjiu nutritional; endocrine; and metabolic disorders (2 sources)Body mass index (BMI) 38.0-38.9, adult; Translations: [Body mass index (BMI) 38.0-38.9, adult]Onset: 23-33-1185KpvrhizHdlji nutritional; endocrine; and metabolic disorders (2 sources)Body mass index (BMI) 37.0-37.9, adult; Translations: [Body mass index (BMI) 37.0-37.9, adult]Onset: 65-05-0556LcptgmcJxpyk skin disorders (2 sources)Localized swelling of left hand; Translations: [Localized swelling, mass and lump, left upper limb]05-85-7181HahphdjcMauqplaewl and visceral atherosclerosis (20 sources)Peripheral vascular disease; Translations: [Peripheral vascular disease, unspecified]Onset: 674943-37-8818IvwxbtfOsckxubv codes; unclassified (20 sources)Obstructive sleep apnea syndrome; Translations: [Obstructive sleep apnea (adult) (pediatric)]Onset: 912316-32-5285LcjlqzeSuauwuhfbyl failure; insufficiency; arrest (adult) (20 sources)Chronic hypoxemic respiratory failure; Translations: [Chronic respiratory failure with hypoxia]Onset: 04-13-2023 Resolved: 026305-64-3236ZnjirycFnstairhgbg failure; insufficiency; arrest (adult) (2 sources)Respiratory failure; Translations: [Respiratory failure, unspecified, unspecified whether with hypoxia or hypercapnia]98-12-0352RjslndtoBosjvjh on above:Problem List clean-up per request of Phys. EHR CmteSpondylosis; intervertebral disc disorders; other back problems (20 sources)Spondylosis without myelopathy or radiculopathy, lumbar region; Translations: [Other intervertebraldisc degeneration, lumbar region]Onset: 10-58-7878KgtlruuXkhbrxedfed; intervertebral disc disorders; other back problems (5 sources)Muscle spasm of back; Translations: [Intervertebral disc disorders with radiculopathy, lumbar region]Onset: 104942-13-9437UojrdeynWdsfdxw on above:Problem List clean-up per request of Phys. EHR CmteSubstance-related disorders (20 sources)Smoker; Translations: [Tobacco use disorder]Onset: 33-17-1519Lrvloiu Comment on above:1 pack daily;Unclassified (1 source)LOW BACK PAIN, UNSPECIFIED; Translations: [LOW BACK PAIN, UNSPECIFIED] Onset: 47-77-6427Fyhwntjjjnkx (3 sources)CONTACT W/AND (SUSP) EXPOS COVID-19; Translations: [CONTACT W/AND (SUSP) EXPOS COVID-19]Onset: 92-00-8037Nfbtltzjkbit (1 source)Other intervertebral disc degeneration, lumbar region with discogenic back pain only; Translations:[Other intervertebral disc degeneration, lumbar region with discogenic back pain only]Onset: 48-00-2871Qdtlynwmjuqo (2 sources)Consult; Translations: [Consult]Onset: 72-59-2974Abqnc infection (1 source)COVID-19; Translations: [COVID-19]Onset: 04-14-2022 Past or Other Problems Problem ClassificationProblemDateDocumented DateEpisodic/ChronicAbdominal hernia (1 source)Left inguinal hernia ; Translations: [Unilateral inguinal hernia, without obstruction or gangrene, not specified as recurrent]30-97-9206Swmruxxi Administrative/social admission (5 sources)Patient encounter status; Translations: [Persons encountering health services in other specified circumstances]Onset: 080810-38-0096Pnepimgm Cardiac dysrhythmias (20 sources)Sinus bradycardia; Translations: [Other specified cardiac dysrhythmias]Onset: 24-25-6395OnyxixyuElkurwkwgvlgg symptoms and ill-defined conditions (20 sources)Dysuria; Translations: [Dysuria]Onset: 02-06-2024 Resolved: 169573-75-2935ZqiozzsgWjbuznf on above:Problem List clean-up per request of Phys. 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]Onset: 113169-84-2803YnbwzutvFgnec connective tissue disease (1 source)Other muscle spasm; Translations: [OTHER MUSCLE SPASM]Onset: 44-11-2886EjhkclmjUteqa connective tissue disease (1 source)Pain in right lower limb; Translations: [Pain in right leg]12-07-2023 EpisodicOther lower respiratory disease (20 sources)Dyspnea; Translations: [Other respiratory abnormalities]Onset: 877623-54-8619NjarnoheMrulf lower respiratory disease (4 sources)Pleurodynia; Translations: [PLEURODYNIA]Onset: 70-76-1707Kjxqspjo Other lower respiratory disease (2 sources)Other forms of dyspnea; Translations: [Other forms of dyspnea]Onset: 65-99-6065UuxpjdfbYpkay non-traumatic joint disorders (20 sources)Bilateral chronic pain of upper limbs; Translations: [Pain in right shoulder]Onset: 289768-94-0692EpakmzyuAxblr screening for suspected conditions (not mental disorders or infectious disease) (20 sources)Cardiovascular stress test abnormal; Translations: [Other nonspecific abnormal results of function study of cardiovascular system]Onset: 02-15-2022 Resolved: 146808-21-6746PwkffzpnSxbgh upper respiratory disease (20 sources)Polyp of nasal cavity and/or nasal sinus; Translations: [Nasal polyp, unspecified]Onset: 857297-60-0031IdccuqzzZurwymri codes; unclassified (1 source)Tobacco user; Translations: [Tobacco use]83-74-1584JyjtbpabAwrpixbkz and history of mental health and substance abuse codes (9 sources)Ex-smoker; Translations: [Personal history of nicotine dependence] Onset: 847892-24-9274FefgmvmkUqupmkuuuljf (1 source)CONTACT W/AND (SUSP) EXPOS COVID-19; Translations: [CONTACT W/AND (SUSP) EXPOS COVID-19]Onset: 32-49-4306Uojownepgmay (18 sources)Onset: 07-13-2023 Resolved: Results Test NameValueInterpretationReference RangeFacilityCardiac Device Check - Remote on 20-54-6466BwaeejfgleOhioHealth [facility] Work Phone: Radiology Study observation (narrative)[facility] Work Phone: Consulton [id number] Liliana Michaels 1965 M Date Provider Department Center 02/05/2025 [facility] SURG [place] No family history on file Level of Service:15356 ME OFFICE/OUTPATIENT NEW MODERATE MDM 45 MINUTES Reason for Visit and Comments: Consult [484]NormalUnGuernsey Memorial HospitalCardiac Device Check - In Clinicon 87-72-2272JrccpfejxnMemorial Hospital Work Phone: Radiology Study observation (narrative)[facility] Work Phone: ECG 12 lead (Clinic Performed)on 49-53-6809FUS performed today shows atrial paced rhythm at rate of 65 bpm QRS duration 106 ms QT corrected 447 ms. Rhythm strip shows the same pattern. [facility] Work Phone: [facility] Work Phone: aLL CBC WITH AUTO DIFFon 95-21-4217CGLBHEWGU ABSOLUTE AUTO0.1NOMS HealthcareBasophils/100 WBC (Bld)1 %0.2 - 2.0 %[facility] Eosinophils/100 WBC (Bld)3.4 %0.9 - 7.0 %NOMS HealthcareErythrocyte distribution width (RBC) [Ratio]12.2 %11.0 - 15.0 %[facility] HealthcareHematocrit (Bld) [Volume fraction]47.4 %42.0 - 54.0 %[facility] HealthcareHemoglobin (Bld) [Mass/Vol]16.1 g/dL 14.0 - 18.0 g/dLNOMS HealthcareIMMATURE GRANULOCYTES ABS AUTO0.05HighNOMS HealthcareImmature granulocytes/100 WBC (Bld)0.6 %High0.0 - 0.5 %[facility] Interpretation and review of laboratory resultsAbnormalNOMS Healthcare LYMPHOCYTES ABSOLUTE LUQE1PVUH HealthcareLymphocytes/100 WBC (Bld)22.8 %20.5 - 60.0 %[facility]OMS [facility] CenterMCH (RBC) [Entitic mass]30.7 pg25.9 - 34.0 pgNOMS HealthcareMCHC (RBC) [Mass/Vol]34 g/dL29.9 - 35.2 g/dLNOMS HealthcareMCV (RBC) [Entitic vol]90.3 fL80.0 - 94.0 fLNOMS HealthcareMONOCYTES ABSOLUTE AUTO0.7NOMS HealthcareMonocytes/100 WBC (Bld)7.7 %1.7 - 12.0 %N[facility] HealthcareNEUTROPHILS ABSOLUTE AUTO5.6NOMS HealthcareNeutrophils/100 WBC (Bld)64.5 %43.0 - 75.0 %N[facility]S HealthcarePlatelet mean volume (Bld) [Entitic vol]10.3 fL9.5 - 13.5 fLNOMS HealthcareTBH EO #0.3NOMS HealthcareTBH IUT608NZOF HealthcareTBH RBC5.25NOMS HealthcareTBH WBC8.7NOMS HealthcareCLINISYNCNOMS HealthcareCardiac Device Check - Remoteon 96-93-3249FzlvyicmibMemorial Hospital Work Phone: Radiology Study observation (narrative)[facility] Work Phone: CT LUNG SCREENING LOW DOSEon 57-97-4543[address] [address] [address] Scan Report Signed Patient: LILIANA MICHAELS MR#: [id number] : 1965 Acct:[id number] Age/Sex: 59 / M ADM Date: 08/09/24 Loc: CT Attending Dr: Amina Cassidy D.O. Ordering Physician: Amina Cassidy D.O. Date of Service: 08/09/24 Procedure(s): CT lung screening low-dose Accession Number(s): [id number] cc: Ishmael Simon M.D. [address] [address] Patient Name: LILIANA MICHAELS MRN: [facility]:[id number] date: 1965 Sex: M Assigned Patient Location: CT Current Patient Location: CT Accession/Order Number: [id number] Exam Date: 08/09/2024 08:33 Report Date: 08/09/2024 [...] Candida Wright M.D.08/09/2024 8:45 AM Dictation Location: [place] [address] Electronically authenticated by: [id number] Y Date: 08/09/2024 08:45 Dictated By: Candida Wright M.D. Signed By: 08/09/24 0848 DD/ 0845 TD/TT: Jewel Staker:TBHRadiology, Radiologist, - 08/09/2024 [place] [address] CT Scan Report Signed Patient: LILIANA MICHAELS MR#: [id number] : 1965 Acct:[id number] Age/Sex: 59 / M ADM Date: 08/09/24 Loc: CT Attending Dr: Amina Cassidy D.O. Ordering Physician: Amina Cassidy D.O. Date of Service: 08/09/24 Procedure(s): CT lung screening low-dose Accession Number(s): [id number] cc: Ishmael Simon M.D. [place] [address] Patient Name: LILIANA MICHAELS MRN: [facility]:[id number] date: 1965 Sex: M Assigned Patient Location: CT Current Patient Location: CT Accession/Order Number: [id number] Exam Date: 08/09/2024 08:33 Report Date: 08/09/2024 [...] Candida Wright M.D.08/09/2024 8:45 AM Dictation Location: [place] [address] Electronically authenticated by: [id number] Y Date: 08/09/2024 08:45 Dictated By: Candida Wright M.D. Signed By: 08/09/24847 DD/ 4 TD/TT: Jewel Staker: [facility] HealthcareRadiology Study observation (narrative)[facility] HealthcareCT LUNG SCREENING LOW DOSEOrdered By: Radiologist Radiology on 87-00-1773[facility] Work Phone: aLL BASIC METABOLIC PANELon 33-34-5404Nbexg gap [Moles/Vol]13 mmol/LNOMS HealthcareCalcium [Mass/Vol]9.2 mg/dL8.5 - 10.1 mg/dL N[facility]S HealthcareChloride [Moles/Vol]100 mmol/L98 - 107 mmol/LNOMS HealthcareCO2 [Moles/Vol]29.3 mmol/L21.0 - 32.0 mmol/LNOMS HealthcareCreatinine [Mass/Vol]1.2 mg/dL0.70 - 1.30 mg/dLNOCA HealthcareGFR/1.73 sq M.predicted CKD-EPI (S/P/Bld) [Vol rate/Area]>60>=60 mL/min/1.73m 2NOMS HealthcareGlucose [Mass/Vol]118 mg/dL High74 - 106 mg/dLNOCA HealthcarePotassium [Moles/Vol]4.3 mmol/L3.5 - 5.1 mmol/L N[facility]S HealthcareSodium [Moles/Vol]138 mmol/L136 - 145 mmol/LNOMS HealthcareTBH EGFR-NON AF [place]I>60>=60 mL/min/1.73m 2NOMS HealthcareUrea nitrogen [Mass/Vol]18 mg/dL7.0 - 18.0 mg/dLNOCA HealthcareUrea nitrogen/Creatinine [Mass ratio]15 mg/mgNOCA HealthcareALL LIPID PROFILE (FASTING)on 54-58-8664EHQJ HDL RATIO5.8NOCA HealthcareComment on above:3.3 - 4.4 LOW RISK 4.4 - 7.1 AVERAGE RISK 7.1 - 11.0 MODERATE RISK >11.0 HIGH RISK Cholesterol [Mass/Vol]265 mg/dLHighNINF - 200 mg/dLNOCA HealthcareCholesterol in HDL [Mass/Vol]46 mg/dL40 - 60 mg/dLNOMS HealthcareComment on above:> or =60 mg/dl - LOW CARDIOVASCULAR RISK <40 mg/dl - HIGH CARDIOVASCULAR RISK Magnesium [Mass/Vol]159 mg/dLNOMS HealthcareComment on above:<100 mg/dl OPTIMAL 100-129 mg/dl NEAR OR ABOVE OPTIMAL 130-159 mg/dl BORDERLINE HIGH 160-189 mg/dl HIGH >190 mg/dl VERY HIGH Magnesium [Mass/Vol]60.6 mg/dLNOMS HealthcareTriglyceride [Mass/Vol]303 mg/dL HighNINF - 150 mg/dLNOMS HealthcareCCF Mario 91-99-4132QRK [Catalytic activity/Vol]36 U/L16 - 63 U/LNOMS HealthcareCCF Isaura 97-19-5167QXT [Catalytic activity/Vol]U/LLow15 - 37 U/LNOMS HealthcareNo Panel Informationon 06-14-2024 Interpretation and review of laboratory resultsAbnormalNOMS HealthcareCLINISYNC NOMS HealthcareEPITHELIAL CELLSon 37-03-6068Qsenkpopva cells LM Ql (Urine sed) Epithelial Cells Few NOMS HealthcareNo Panel Informationon 12-86-5386JQBETWOUQGXGU HealthcareRESULT 1 on 66-83-2852EVGEPA 1 Result 1 Moderate number of gram positive cocci. NOMS HealthcareRESULT 2on 18-07-9976OXTKMV 2 Result 2 Few gram negative rods. NOMS HealthcareRESULT 3on 95-57-5306QTOOHJ 3 Result 3 MIXER WET POUR NOMS HealthcareRESULT 4on 59-01-3067VILZUX 4 Result 4 MIXER WET POUR NOMS HealthcareWHITE BLOOD CELLSon 57-73-4362WJMDA BLOOD CELLS White Blood Cells NOMS HealthcareWHITE BLOOD CELLSFewNOCA HealthcareCardiac Device Check - In Clinicon 36-45-9134GnsccbtyonMemorial Hospital Work Phone: Radiology Study observation (narrative)[facility] Work Phone: ECG 12 lead (Clinic Performed)on 71-01-3789JQN performed today shows atrial paced rhythm at rate of 74 bpm QRS ration 100 ms QT corrected 448 ms. Rhythm strip shows the same pattern.[facility] Work Phone: [facility] Work Phone: MLR HEMOGLOBIN A1Con 04-59-0714Qtyrgcf [Mass/Vol]131 mg/dLCameron Regional Medical CenterHbA1c (Bld) [Mass fraction]6.2 %4.5 - 6.2 %[facility] Comment on above:ADA RECOMMENDED LIMIT 4.0 - 6.0 ADA THERAPEUTIC TARGET < 7.0 ACTION SUGGESTED > 7.0 CLINISYNCCameron Regional Medical CenterMagnetic resonance imaging reportOrdered By: Germán Murphy on 42-35-0140Edpqn reportPARKVIEW HEALTH Main [place] [address] [place] [address] MRI Report Signed Patient: Liliana Michaels JR MR#: [id number] : 1965 Acct:[id number] Age/Sex: 59 / M ADM Date: 4 Loc: MR Room: Type: [facility] Attending Dr: Danielle GAYTAN Copies to: LUKAS Burns~ Ordering Provider: LUKAS Burns Date of Service: 03/27/24 MR/MR lumbar spine wo con: LUMBAR DDD ([id number]) XR/XR pre/post mri xray: LUMBAR DDD MRI lumbar spine without IV contrast. Reason for exam: Failed nerve block ablation to right upper leg. COMPARISON: Lumbar spine imaging performed earlier today. TECHNIQUE: Multisequence, multiplanar imaging of the lumbar spine was obtained without the use of IV contrast. FINDINGS: Vertebral body heights appear maintained. Diffuse disc desiccation. No bone marrow edema.Spinal cord to raise in normal position without abnormal cord signal. No paraspinal mass. Visualized retroperitoneum demonstrates no acute findings. L1-L2: 4 mm retrolisthesis. Diffuse broad-based disc bulge is present with facet joint degenerativechanges causing moderate canal and bilateral neural foraminal stenosis. L2-L3: Minimal broad-based disc bulge is present with ligamentum flavum hypertrophy and facet jointdegenerative changes. Findings are causing mild canal and [...] present with ligamentum flavum hypertrophy and facet jointdegenerative changes. Findings are causing moderatecanal and bilateral [...] Murphy Jr., D.O.03/27/2024 11:57 AM Dictation Location: [place] [address] Transcribed By: [facility] 03/27/24 1157 Dictated By: Germán Murphy Jr, DO 03/27/24 1148 Signed By: 03/27/24 1157 [facility] SystemXR pre/post mri xrayon 74-55-4289OD pre/post mri xrayPARKVIEW HEALTH Main [place] [address] [place] [address] MRI Report Signed Patient: Liliana Michaels JR MR#: [id number] : 1965 Acct:[id number] Age/Sex: 59 / M ADM Date: 03/27/24 Loc: MR Room: Type: [facility] Attending Dr: Danielle GAYTAN Copies to: LUKAS Burns Ordering Provider: LUKAS Burns Date of Service: 03/27/24 MR/MR lumbar spine wo con: LUMBAR DDD ([id number]) XR/XR pre/post mri xray: LUMBAR DDD MRI [...] Murphy Jr., D.OAtiya03/27/2024 11:57 AM Dictation Location: [place] [address] Transcribed By: [facility] 03/27/24 1157 Dictated By: Germán Murphy Jr, DO 03/27/24 1148 Signed By: 03/27/24 1157[facility] Physician GroupXR chest 2V*on 92-15-9007TA chest 2V*[facility] Main [place] [id number] XRay Report Signed Patient: Liliana Michaels JR MR#: [id number] : 1965 Acct:[id number] Age/Sex: 59 / M ADM Date: 03/16/24 Loc: [facility] Room: Type: [facility] Attending Dr: Danielle GAYTAN Copies to: LUKAS [...] Elia Rodrigez M.D.03/16/2024 8:54 AM Dictation Location: [facility]--16 Transcribed By: [facility] 03/16/24 0854 Dictated By: Elia Rodrigez DO 03/16/24 0849 Signed By: 03/16/24 0854[facility] Physician GroupCardiac Device Check - Remoteon 41-32-8539OicsseaekhMemorial Hospital Work Phone: Radiology Study observation (narrative)[facility] Work Phone: TB UA (CLEAN/CATCH) MICROSCOPIC IF INDICATEon 57-36-3258GNWSZAVOK URINENegativeNEGATIVENOMS HealthcareBLOOD URINETRACE-I NEGATIVENOMS HealthcareClarity (U)SL CLOUDYCLEARNOMS HealthcareColor (U)LT. YELLOWYELLOWNOMS HealthcareGLUCOSE URINE UANegativeNEGATIVE mg/dLNOMS Healthcare Interpretation and review of laboratory resultsAbnormalNOMS HealthcareKetones Ql (U)NegativeNEGATIVE mg/dLNOMS HealthcareLeukocyte esterase Test strip Ql (U) LARGEAbnormalNEGATIVENOMS HealthcareNITRITE URINENegativeNEGATIVENOMS Healthcare pH (U)6.0 [pH]5.0 - 9.0NOCA HealthcarePROTEIN URINENegativeNEG/TRACE mg/dLNOCA HealthcareSPECIFIC GRAVITY URINE1.0151.005 - 1.025NOCA HealthcareURINE MICROSCOPIC INDICATEDYESNOCA HealthcareUROBILINOGEN URINE0.2 EU/dL0.2 - 1.0 EU/dLNOCA HealthcareCLINISYNCNOMS HealthcareXR CHEST 2 VIEWS VINCENZO/Pal 11-10-2023 Report to [employer] registration on 11/09/2023 at 8:30 AM for chest x-ray and device check prior to appointment with Dr. Son at 10 AM Interpreted By: Sancho Gross, STUDY: XR CHEST 2 VIEWS; 11/09/2023 9:46 am INDICATION: Signs/Symptoms:Pacemaker. COMPARISON: 08/05/2023 ACCESSION NUMBER(S): [id number] ORDERING CLINICIAN: ANA M KUMARI FINDINGS: Left-sided pacemaker in place. CARDIOMEDIASTINAL SILHOUETTE: Cardiomediastinal silhouette is normal in size and configuration. LUNGS: Lungs are clear. ABDOMEN: No remarkable upper abdominal findings. BONES: No acute osseous changes. IMPRESSION: 1. No evidence of acute cardiopulmonary process. MACRO: None Signed by: Sancho Gross 11/10/2023 8:35 AM Dictation workstation: [id number], Radiologist, - 11/10/2023 Report to [facility] registration on 11/09/2023 at 8:30 AM for chest x-ray and device check prior to appointment with Dr. Son at 10 AM Interpreted By: Sancho Gross, STUDY: XR CHEST 2 VIEWS; 11/09/2023 9:46 am INDICATION: Signs/Symptoms:Pacemaker. COMPARISON: 08/05/2023 ACCESSION NUMBER(S): [id number] ORDERING CLINICIAN: ANA M KUMARI FINDINGS: Left-sided pacemaker in place. CARDIOMEDIASTINAL SILHOUETTE: Cardiomediastinal silhouette is normal in size and configuration. LUNGS: Lungs are clear. ABDOMEN: No remarkable upper abdominal findings. BONES: No acute osseous changes. IMPRESSION: 1. No evidence of acute cardiopulmonary process. MACRO: None Signed by: Sancho Gross 11/10/2023 8:35 AM Dictation workstation: [id number] NOMS HealthcareXR CHEST 2 VIEWS PA/LATOrdered By: Radiologist Radiology on 65-86-1043ZJKA [employer] Work Phone: XR CHEST 2 VIEWS PA/LATon 24-82-5617Hmwoisgjf Study observation (narrative)NOMS HealthcareXR Shoulder - bilateral 2 Viewson 23-25[place]0807[place] [address] XRay Report Signed Patient: LILIANA MICHAELS MR#: [id number] : 1965 Acct:[id number] Age/Sex: 58 / M ADM Date: 10/10/23 Loc: LAB Attending Dr: Ishmael Simon M.D. Ordering Physician: Ishmael Simon M.D. Date of Service: 10/10/23 Procedure(s): XR shoulder KRISTOPHER min 2V Accession Number(s): [id number] cc: Ishmael Simon M.D. [place] [address] Patient Name: LILIANA MICHAELS MRN: [id number]:[id number] date: 1965 Sex: M Assigned Patient Location: LAB Current Patient Location: Accession/Order Number: [id number] Exam Date: 10/10/2023 12:45 Report Date: 10/11/2023 [...] to rotator cuff injury. Electronically authenticated by: FLEX JACOBS Date: 10/11/2023 11:34 Dictated By: Flex Jacobs M.D. Signed By: 10/11/23 1137 DD/ 1134 TD/TT: Jewel Staker:TBHRadiology, Radiologist, MD - 10/11/2023 [place] [address] XRay Report Signed Patient: LILIANA MICHAELS MR#: [id number] : 1965 Acct:[id number] Age/Sex: 58 / M ADM Date: 10/10/23 Loc: LAB Attending Dr: Ishmael Simon M.D. Ordering Physician: Ishmael Simon M.D. Date of Service: 10/10/23 Procedure(s): XR shoulder KRISTOPHER min 2V Accession Number(s): [id number] cc: Ishmael Simon M.D. The [place] [address] Patient Name: LILIANA MICHAELS MRN: [facility]:[id number] date: 1965 Sex: M Assigned Patient Location: LAB Current Patient Location: Accession/Order Number: [id number] Exam Date: 10/10/2023 12:45 Report Date: 10/11/2023 [...] to rotator cuff injury. Electronically authenticated by: FLEX JACOBS Date: 10/11/2023 11:34 Dictated By: Flex Jacobs M.D. Signed By: 10/11/23 1137 DD/ 1134 TD/TT: Jewel Staker: NOMFransico HealthcareRadiology Study observation (narrative)NOM[facility] HealthcareXR Shoulder - bilateral 2 ViewsOrdered By: Radiologist Radiology on 10-06-0972WEMOCameron Regional Medical Center Work Phone: cardiac Device Check - Remoteon 82-28-0791MwbwznpbhoMemorial Hospital Work Phone: Radiology Study observation (narrative)[facility] Work Phone: US.doppler Upper extremity vein - lefton 08-10-2023 Exam negative for acute deep venous thrombosis in the left upper extremity MACRO: None Signed by: Simone Ramos 08/10/2023 3:07 PM Dictation workstation: [id number] By: Simone Ramos, STUDY: [facility] US UPPER EXTREMITY VENOUS DUPLEX LEFT; 08/10/2023 2:47 pm INDICATION: Signs/Symptoms: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 COMPARISON: Portable chest 05 August 2023 ACCESSION NUMBER(S): [id number] ORDERING CLINICIAN: NAIMA WRIGHT TECHNIQUE: Vascular ultrasound [...] vessels patent and, where applicable, normally compressible Simone Martinez MD - 08/10/2023 Interpreted By: Simone Ramos, STUDY: [facility] US UPPER EXTREMITY VENOUS DUPLEX LEFT; 08/10/2023 2:47 pm INDICATION: Signs/Symptoms: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 COMPARISON: Portable chest 05 August 2023 ACCESSION NUMBER(S): [id number] ORDERING CLINICIAN: NAIMA WRIGHT TECHNIQUE: Vascular ultrasound [...] Simone Ramos 08/10/2023 3:07 PM Dictation workstation: [id number] [facility] Work Phone: Interpreted By: Simone Ramos, STUDY: [facility] US UPPER EXTREMITY VENOUS DUPLEX LEFT; 08/10/2023 2:47 pm INDICATION: Signs/Symptoms: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 COMPARISON: Portable chest 05 August 2023 ACCESSION NUMBER(S): [id number] ORDERING CLINICIAN: NAIMA WRIGHT TECHNIQUE: Vascular ultrasound [...] Simone Ramos 08/10/2023 3:07 PM Dictation workstation: [id number], Radiologist, - 08/10/2023 Interpreted By: Simone Ramos, STUDY: [facility] US UPPER EXTREMITY VENOUS DUPLEX LEFT; 08/10/2023 2:47 pm INDICATION: Signs/Symptoms: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 COMPARISON: Portable chest 05 August 2023 ACCESSION NUMBER(S): [id number] ORDERING CLINICIAN: NAIMA WRIGHT TECHNIQUE: Vascular ultrasound [...] Simone Ramos 08/10/2023 3:07 PM Dictation workstation: [id number] [facility] CenterRadiology Study observation (narrative)[facility] Work Phone: Radiology Study observation (narrative)[facility] US.doppler Upper extremity vein - leftOrdered By: Simone Ramos on 08-10-2023 [facility] Work Phone: US.doppler Upper extremity vein - leftOrdered By: Radiologist Radiology on 90-50-9210NEHRCameron Regional Medical Center Work Phone: basic metabolic 2000 panelon 45-34-7479Vhvlk gap [Moles/Vol]12 mmol/L10 - 20 mmol/[facility] HospitalCalcium [Mass/Vol]9.6 mg/dL8.6 - 10.3 mg/dLOhioHealth Arthur G.H. Bing, MD, Cancer CenterChloride [Moles/Vol]102 mmol/L98 - 107 mmol/[facility] HospitalCO2 [Moles/Vol]29 mmol/L21 - 32 mmol/[facility] HospitalCreatinine [Mass/Vol]1.12 mg/dL0.50 - 1.30 mg/dLUnMemorial HospitalGFR/1.73 sq M.predicted among non-blacks MDRD (S/P/Bld) [Vol rate/Area]76 mL/min/{1.73_m2}- PINFUniSelect Medical OhioHealth Rehabilitation Hospital - DublinComment on above: Calculations of estimated GFR are performed using the 2020 CKD-EPI Study Refit equation without therace variable for the IDMS-Traceable creatinine methods. https://jasn.asnjournals.org/content//ASN.8147822892 Glucose [Mass/Vol]95 mg/dL74 - 99 mg/dLUnMemorial Hospital Interpretation and review of laboratory resultsNoSt. Mary's Medical CenterPotassium [Moles/Vol]4.0 mmol/L3.5 - 5.3 mmol/[facility] HospitalSodium [Moles/Vol]139 mmol/L136 - 145 mmol/[facility] HospitalUrea nitrogen [Mass/Vol]17 mg/dL6 - 23 mg/dLUnMemorial HospitalUnMemorial HospitalCBC panel Auto (Bld)on 08-05-2023 Erythrocyte distribution width (RBC) [Ratio]13.0 %11.5 - 14.5 %[facility] Cancer CenterHematocrit (Bld) [Volume fraction]46.9 %41.0 - 52.0 % [facility] CenterHemoglobin (Bld) [Mass/Vol]16.1 g/dL13.5 - 17.5 g/dLUnMemorial HospitalInterpretation and review of laboratory resultsNoShelby Memorial HospitalH (RBC) [Entitic mass]31.5 pg 26.0 - 34.0 pgUnMemorial HospitalMCHC (RBC) [Mass/Vol]34.3 g/dL 32.0 - 36.0 g/dLUnMemorial HospitalMCV (RBC) [Entitic vol]92 fL80 - 100 fLUniSelect Medical OhioHealth Rehabilitation Hospital - DublinNucleated RBC/100 WBC (Bld) [Ratio]0.0 %[facility] Cancer CenterPlatelets (Bld) [#/Vol]279 10*3/[facility] HospitalRBC (Bld) [#/Vol]5.11 10*6/[facility] HospitalWBC (Bld) [#/Vol]8.9 10*3/[facility] HospitalUnMemorial HospitalElectrophysiology studyon 88-11-8993XlvkluvstfMemorial Hospital Work Phone: PT and aPTT panel Coag (PPP)on 26-61-4874qHQP Coag (PPP) [Time]34 [facility] HospitalINR Coag (PPP) [Relative time] 1.0 {INR}0.9 - 1.1[facility] Cancer CenterInterpretation and review of laboratory resultsNormalUniversRiverside Hospital CorporationPT Coag (PPP) [Time] 11.0 [facility] HospitalThe APTT is no longer used for monitoring Unfractionated Heparin Therapy. For monitoring Heparin Therapy, use the Heparin Assay.[facility] Cancer CenterUnMemorial HospitalUS Heart TransthoracicOrdered By: Batsheva Morris on 49-17-8876Eilisf Valve Area by Continuity of Peak Velocity2.42 vp9MwvymawljwOhioHealth Arthur [facility] Center Work Phone: Aortic Valve Area by Continuity of VTI2.62 cm2 [facility] Work Phone: AV mn grad4.0mmHgOhioHealth [facility] Work Phone: [phone] pk grad8.2mmHgOhioHealth [facility] Work Phone: [phone] pk vel1.43 m/[facility] Work Phone: LA vol index A/L29.3 ml/s2AjzxhmwibjMemorial Hospital Work Phone: LV A4C EF62.4[facility] Work Phone: LV biplane EF60 %[facility] Work Phone: LVIDd5.28 cmUnMemorial Hospital Work Phone: LVOT diam2.00 cmOhioHealth Arthur G.H. [facility], [facility], Cancer Center Work Phone: MV avg E/e' ratio7.78UnMemorial Hospital Work Phone: [phone] E/A ratio0.88UnMemorial Hospital Work Phone: RV free wall pk S'15.40 cm/sUnMemorial Hospital Work Phone: RVSP23.4mmHgUnMemorial Hospital Work Phone: Tricuspid annular plane systolic excursion3.6 cm [facility] Work Phone: UnMemorial Hospital Work Phone: US Heart Transthoracicon 08-05-2023 [place] [id number] TRANSTHORACIC ECHOCARDIOGRAM REPORT Patient Name: LILIANA MICHAELS Reading Physician: [id number] Batsheva Morris MD, [facility] Study Date: 08/05/2023 Ordering Provider: [id number] ANA M ANGEL MRN/PID: [id number] Fellow: Nurse: Date of /Age: 10 1965 / 58 Batch Weigher: Eli Pisano RDCS Gender: M Additional Staff: Height: 162.56 cm Admit Date: Weight: 90.72 kg Admission Status: Outpatient BSA / BMI: 1.96 m2 / 34.33 Department Location: [place] [address] Echo Lab Blood Pressure: 128 /73 mmHg Study Type: TRANSTHORACIC ECHO (TTE) COMPLETE Diagnosis/ICD: Bradycardia, unspecified-R00.1 Indication: Abnormal EKG, Pre-EP CPT Codes: Echo Complete w Full Doppler-20829 Study Detail: The following Echo studies were [...] LA Area A2C: 18.9 cm2 LA [place] A4C: 5.8 cm LA [place] A2C: 5.5 cm LA Volume Index: 27.0 [...] (18-25cm) LVOT VTI: 29 (more content not included)...Batsheva Dotson MD - 08/05/2023 [place] [address] TRANSTHORACIC ECHOCARDIOGRAM REPORT Patient Name: LILIANA MICHAELS Reading Physician: [id number] Batsheva Morris MD, [facility] Study Date: 08/05/2023 Ordering Provider: [id number] ANA M ANGEL MRN/PID: [id number] Fellow: Nurse: Date of /Age: 10 1965 Batch Weigher: Eli Pisano CS Gender: M Additional Staff: Height: 162.56 cm Admit Date: Weight: 90.72 kg Admission Status: Outpatient BSA / BMI: 1.96 m2 / 34.33 Department Location: [facility]/m2 Echo Lab Blood Pressure: 128 /73 mmHg Study Type: TRANSTHORACIC ECHO (TTE) COMPLETE Diagnosis/ICD: Bradycardia, unspecified-R00.1 Indication: Abnormal EKG, Pre-EP CPT Codes: Echo Complete w Full Doppler-53865 Study Detail: The following Echo studies were [...] LA Area A2C: 18.9 cm2 LA [place] A4C: 5.8 cm LA [place] A2C: 5.5 cm LA Volume Index: 27.0 [...] 1.3 m/s (0.6-0.9m/s) PV Max P.6 mmHg [id number] Batsheva Morris MD, [facility] Electronically signed on 08/05/2023 at 2:30:14 PM Final [facility] Work Phone: xr Chest Single viewon 49-58-8747Zdfgkj post pacemaker placement. Signed by: Salvatore Clark 08/05/2023 6:10 PM Dictation workstation: [id number] By: Salvatore Clark, STUDY: XR CHEST 1 VIEW INDICATION: Signs/Symptoms:post implant. COMPARISON: None ACCESSION NUMBER(S): [id number] ORDERING CLINICIAN: ANA M KUMARI FINDINGS: No consolidation, effusion, edema, or pneumothorax. Pacemaker placed without pneumothorax. Position satisfactory. MMSalvatore Warren MD - 08/05/2023 Interpreted By: Salvatore Clark, STUDY: XR CHEST 1 VIEW INDICATION: Signs/Symptoms:post implant. COMPARISON: None ACCESSION NUMBER(S): [id number] ORDERING CLINICIAN: ANA M KUMARI FINDINGS: No consolidation, effusion, edema, or pneumothorax. Pacemaker placed without pneumothorax. Position satisfactory. IMPRESSION: Status post pacemaker placement. Signed by: Salvatore Clark 08/05/2023 6:10 PM Dictation workstation: [id number] [facility] Work Phone: Radiology Study observation (narrative)[facility] Work Phone: xr Chest Single viewOrdered By: Salvatore Clark on 54-27-9905EjmeakbuibMemorial Hospital Work Phone: ecg 12 lead (Clinic Performed)on 60-42-6618TXX shows marked sinus bradycardia rate of 41 bpm QRS ration 100 ms QT corrected he had a 91 ms. Rhythm strip shows the same pattern.CPACSUnMemorial Hospital Work Phone: CT LUNG CANCER SCREENINGon 85-04-1795GU LUNG CANCER SCREENINGEXAMINATION: CT LUNG CANCER SCREENING HISTORY: Screening for [...] Electronically authenticated by: BATSHEVA ALVARADO Date: 2022-07-15 12:[address] [place], [place] [address]Office Visit (Cardiology)on 62-70-3544Yfuvyw-up visit Diagnoses/Problems Assessed Sinus bradycardia (427.89) (R00.1) [...] we can help. You may also call [phone] Goodie AppNOW for free resources and assistance.; Status:Complete - [...] ischemic evaluation. He underwent cardiac catheterization in [place] which showed no significant obstructive disease 3. [...] Oral Capsule Delayed ReleaseTAKE 1 CAPSULE Daily oxyCODONE-Acetaminophen 7.5-325 MG Oral TabletTAKE 1 TABLET BY MOUTH FOUR TIMES A DAY NEEDED Wzkqpd2j at bedtime Singulair 10 MG Oral TabletTAKE [...] Recorded: 14Jul2022 10:57AM Heart Rate34, L Radial Cwggoslh118, LUE, Sitting Cufvcadnt97, LUE, Sitting Height5 ft 4 in Zyrzre474 lb BMI Kiqboaiklz07.96 kg/m2 BSA Calculated1.92 Tobacco Usea) Yes Patient encouraged to st (more content not included)...NormalUH Touchworks Tobacco Screening.on 77-75-0459Wbftt depression screening assessmentNoNavos Health Startup Stock ExchangeSaint Joseph Hospital WestDelhiEarth Renewable Technologies DO Work Phone: Fall risk assessmenta) No falls within the last year [facility] ExchangeNew [facility] NONO DO Work Phone: Tobacco use status CPHSa) YesNavos Health Startup Stock ExchangeBridgeport Hospital NONO DO Work Phone: Tobacco Screening.YesSt. John's Hospital NONO DO Work Phone: CT ABD/PELV W CONon 70-59-2785XZ ABD/PELV W CON EXAMINATION: CT ABD/PELV W [...] Electronically authenticated by: FLEX JACOBS Date: 2022-06-11 10:06[facility] AUTO DIFFon 77-10-2403KNAY #0.1 103/ulNormal0.0-0.1The [facility] HospitalComment on above:Performed By: #### CBC #### [facility] [address] [place] [address] [address] Britt MendozaBasophils/100 WBC (Bld)1.6 %Normal0.2-2.0The [facility] Comment on above:Performed By: #### CBC #### [facility] [address] [place] [address] Dr. Britt Kent #0.2 103/ulNormal0.0-0.7The [facility] HospitalComment on above: Performed By: #### CBC #### [facility] [address] [place] [address] [address] Britt Sueosinophils/100 WBC (Bld)3.0 %Normal0.9-7.0The [facility] Comment on above:Performed By: #### CBC #### [facility] [address] [place] [address] [address] Britt Suerythrocyte distribution width (RBC) [Ratio]12.4 %Sycfcx71.0-15.0 The [facility] HospitalComment on above:Performed By: #### CBC #### [facility] [address] [place] [address] [address] Britt MendozaHematocrit (Bld) [Volume fraction]43.2 %Ghdwwg26.0-54.0The [facility] HospitalComment on above:Performed By: #### CBC #### [facility] [address] [place] [address] [address] Britt MendozaHemoglobin (Bld) [Mass/Vol]14.7 g/rTEaskzd87.0-18.0The [facility] HospitalComment on above:Performed By: #### CBC #### [facility] [address] [place] [address] [address] Britt Esposito #0.11 10e3/ulCritically high0.00-0.03The [facility] Comment on above:Performed By: #### CBC #### [facility] [address] [place] [address] [address] Britt Esposito %1.4 %Critically high0.0-0.5The Rumney HospitalComment on above:Performed By: #### CBC #### [facility] [address] [place] [address] [address] Britt Meyer #1.7 103/ulNormal1.2-3.8The [facility] HospitalComment on above:Performed By: #### CBC #### [facility] [address] [place] [address] Dr. Britt Sebastianhocytes/100 WBC (Bld)21.6 %Zcjapw33.5-60.0Day[facility] Children'S HospitalComment on above:Performed By: #### CBC #### [facility] [address] [place] [address] [address] Britt HernandezUAL DIFF REQNONormalThe [facility] HospitalComment on above: Performed By: #### CBC #### [facility] [address] [place] [address] Dr. Britt Johns (RBC) [Entitic mass]31.2 ouBwrwjr37.9-34.0The [facility] HospitalComment on above:Performed By: #### CBC #### [facility] [address] [place] [address] Dr. Britt Johns (RBC) [Mass/Vol]34.0 g/qUUhuoww81.9-35.2The [facility] HospitalComment on above:Performed By: #### CBC #### [facility] [address] [place] [address] Dr. Britt Johns (RBC) [Entitic vol]91.7 uLDqgzlf09.0-94.0The [facility] HospitalComment on above:Performed By: #### CBC #### [facility] [address] [place] [address] [address] Britt Ba #0.5 103/ulNormal0.3-0.8The [facility] HospitalComment on above:Performed By: #### CBC #### [facility] [address] [place] [address] Dr. Britt Rodriguezocytes/100 WBC (Bld)6.8 %Normal1.7-12.0The [facility] Comment on above:Performed By: #### CBC #### [facility] [address] [place] [address] Dr. Britt Nichols #5.0 103/ulNormal1.4-6.5The [facility] HospitalComment on above:Performed By: #### CBC #### [facility] [address] [place] [address] Dr. Britt Carrilloutrophils/100 WBC (Bld)65.6 %Upizdn25.0-75.0The [facility] HospitalComment on above:Performed By: #### CBC #### [facility] [address] [place] [address] Dr. Britt Pierce mean volume (Bld) [Entitic vol]9.7 fLNormal9.5-13.5The [facility] HospitalComment on above:Performed By: #### CBC #### [facility] [address] [place] [address] Dr. Britt WuT244 103/liOpsere982-325Iyz [facility] HospitalComment on above: Performed By: #### CBC #### [facility] [address] [place] [address] Dr. Britt MendozaRBC4.71 106/ulNormal4.70-6.10The [facility] HospitalComment on above:Performed By: #### CBC #### [facility] [address] [place] [address] Dr. Britt MendozaWBC7.6 103/ulNormal4.0-11.0The [facility] HospitalComment on above: Performed By: #### CBC #### [facility] [address] [place] [address] [address] Britt MendozaGLYCOHEMOGLOBIN A1Con 58-77-2772NIB RECOMMENDATIONSEE BELOWLouis Stokes Cleveland Va Medical CenterComment on above:Result Comment: ADA RECOMMENDED LIMIT 4.0 - 6.0 ADA THERAPEUTIC TARGET < 7.0 ACTION SUGGESTED > 7.0Performed By: #### A1C ####[facility] [address] [place] [address]DrAtiya MendozaGlucose [Mass/Vol]117 mg/dLNoSelect Medical Specialty Hospital - CantonComment on above:Performed By: #### A1C ####[facility] [address] [place] [address]Dr.Yilan MendozaHbA1c (Bld) [Mass fraction]5.7 %Normal 4.5-6.2The [facility] HospitalComment on above:Performed By: #### A1C ####[facility] [address] [place], [place] [address]Dr.Yilan MendozaLIPID PROFILEon 31-55-2179EDSG-HDL RATIO NORMSEE [facility] Comment on above:Result Comment: 3.3 - 4.4 LOW RISK 4.4 - 7.1 AVERAGE RISK 7.1 - 11.0 MODERATE RISK >11.0 HIGH RISKPerformed By: #### BMP, LIVER, LIPID, TSH ####[facility] [address] [place] [address]DrAtiya MendozaCholesterol [Mass/Vol]235 mg/dLCritically high<=200The [facility] HospitalCompine rest christian mental health services on above:Performed By: #### BMP, LIVER, LIPID, TSH ####[facility] [address] [place] [address]DrAtiya Mendoza Cholesterol in HDL [Mass/Vol]40 mg/bSYwxflj87-64ZocDayton Children'S HospitalCompine rest christian mental health services on above:Performed By: #### BMP, LIVER, LIPID, TSH ####[facility] Jrnzvnqj[address] [place], [place] [address]Dr. Yilan ChangCholesterol in LDL [Mass/Vol]156.8 mg/dLSCCI Hospital LimaComment on above:Performed By: #### BMP, LIVER, LIPID, TSH ####[facility] [address]xwq[address] [place] [address]Dr. Anjalilan ChangCholesterol.total/Cholesterol in HDL [Mass ratio]5.9 {ratio}NormalDayton Children'S HospitalComment on above:Performed By: #### BMP, LIVER, LIPID, TSH ####[facility] [address]pkrcdlj[address] [place] [address]Dr. Yilan ChangHDL NORMAL> or = 60 mg/dl - LOW CARDIOVASCULAR RISK <40 mg/dl - HIGH CARDIOVASCULAR RISKSCCI Hospital LimaComment on above:Performed By: #### BMP, LIVER, LIPID, TSH ####[facility] [address] [place] [address]Dr. Yilan ChangLDL CALC NORMALSEE BELOWNoSelect Medical Specialty Hospital - CantonComment on above:Result Comment: <100 mg/dl OPTIMAL 100 - 129 mg/dl NEAR OR ABOVE OPTIMAL 130 - 159 mg/dl BORDERLINE HIGH 160 - 189 mg/dl HIGH >190 mg/dl VERY HIGHPerformed By: #### BMP, LIVER, LIPID, TSH ####[facility] [address] [place] [address]Dr. Anjalilan ChangTriglyceride [Mass/Vol]191 mg/dLCritically high<=150[facility] on above:Performed By: #### BMP, LIVER, LIPID, TSH ####[facility] [address]weddrxf[address] [place] [address]Dr. Anjalilan ChangVLDL CALC38.2 mg/dLNoSelect Medical Specialty Hospital - CantonComment on above: Performed By: #### BMP, LIVER, LIPID, TSH ####[facility] [address]sarers[address] [place] [address]Dr. Anjalilan ChangLIVER PROFILEon 05-07-2022 Albumin [Mass/Vol]3.6 g/dLNormal3.4-5.0The [facility] HospitalComment on above: Performed By: #### BMP, LIVER, LIPID, TSH ####[facility] [address] [place] [address]Dr. Yilan ChangAlbumin/Globulin [Mass ratio] 1.1 {ratio}NormalThe [facility] HospitalComment on above:Performed By: #### BMP, LIVER, LIPID, TSH ####[facility] [address] [place] [address]Dr. Yilan ChangALP [Catalytic activity/Vol]84 U/YEgrxbs05-913Yfv [facility] HospitalComment on above:Performed By: #### BMP, LIVER, LIPID, TSH ####[facility] [address]qxr[address] [place] [address]Dr. Yilan ChangALT [Catalytic activity/Vol]34 U/OPklxlz25-14Elt [facility] Comment on above:Performed By: #### BMP, LIVER, LIPID, TSH ####[facility] [address] [place], [place] [address]Dr. Yilan ChangAST [Catalytic activity/Vol]21 U/TKckgvn65-63Fsn [facility] HospitalComment on above:Performed By: #### BMP, LIVER, LIPID, TSH ####[facility] Ehjhqitr[address] [place], [place] [address]Dr. Yilan ChangBILI, CONJUGATED0.1 mg/dLNormal0.0-0.2 The [facility]ome[facility] Hospitalment on above:Performed By: #### BMP, LIVER, LIPID, TSH ####[facility] [address] [place] [address]Dr. Yilan ChangBilirubin [Mass/Vol]0.4 mg/dLNormal0.2-1.0[facility] Comment on above:Performed By: #### BMP, LIVER, LIPID, TSH ####[facility] Drpyhjes[address] [place], [place] [address]Dr. Yilan ChangGlobulin (S) [Mass/Vol]3.4 g/dLNormalThe [facility] HospitalComment on above:Performed By: #### BMP, LIVER, LIPID, TSH ####[facility] [address] [place], [place] [address]Dr. Yilan ChangProtein [Mass/Vol]7.0 g/dLNormal6.4-8.2 The [facility] HospitalComment on above:Performed By: #### BMP, LIVER, LIPID, TSH ####[facility] [address] [place] [address]Dr. Britt MendozaPROF CHEM 8 (BAS METB)on 21-20-7562Aogfc gap [Moles/Vol]13.8 mmol/L NormalThe [facility] HospitalComment on above:Result Comment: Previously reported as: -2.3 On 05/07/2022 13:50 By [id number] By: #### BMP, LIVER, LIPID, TSH #### [facility] [address] [place] [address] [address] Britt MendozaCalcium [Mass/Vol]9.2 mg/dLNormal8.5-10.1The [facility] Comment on above:Performed By: #### BMP, LIVER, LIPID, TSH #### [facility] [address] [place] [address] [address] Britt MendozaChloride [Moles/Vol]99 mmol/EMvzbrh65-249Seh [facility] Comment on above:Result Comment: Previously reported as: 106 On 05/07/2022 13:50 By [id number] By: #### BMP, LIVER, LIPID, TSH #### [facility] [address] [place] [address] [address] Britt MendozaCO2 [Moles/Vol]27.3 mmol/FCuqgcr72.0-32.0The [facility] Comment on above:Result Comment: Previously reported as: 29.2 On 05/07/2022 13:50 By [id number] By: #### BMP, LIVER, LIPID, TSH #### [facility] [address] [place] [address] [address] Britt MendozaCreatinine [Mass/Vol]1.12 mg/dLNormal0.70-1.30The [facility] HospitalComment on above:Performed By: #### BMP, LIVER, LIPID, TSH #### [facility] [address] [place] [address] [address] Britt SueGFR-AF KUWAITI>60Normal>=60The [facility] HospitalComment on above:Performed By: #### BMP, LIVER, LIPID, TSH #### [facility] [address] [place] [address] [address] Britt SueGFR-NON AF [place]I>60Normal>=60The [facility] HospitalComment on above:Performed By: #### BMP, LIVER, LIPID, TSH #### [facility] [address] [place] [address] [address] Britt MendozaGlucose [Mass/Vol]108 mg/dLCritically mpad93-124Icm [facility] HospitalComment on above:Performed By: #### BMP, LIVER, LIPID, TSH #### [facility] [address] [place] [address] [address] Britt MendozaPotassium [Moles/Vol]4.1 mmol/LNormal3.5-5.1The [facility] Comment on above:Result Comment: Previously reported as: 3.9 On 05/07/2022 13:50 By [id number] By: #### BMP, LIVER, LIPID, TSH #### [facility] [address] [place] [address] Dr. Britt MendozaSodium [Moles/Vol]136 mmol/ZRwumbl787-596Fyw [facility] Comment on above:Result Comment: Previously reported as: 129 On 05/07/2022 13:50 By [id number] By: #### BMP, LIVER, LIPID, TSH #### [facility] [address] [place] [address] [address] Britt MendozaUrea nitrogen [Mass/Vol]26.0 mg/dLCritically high7.0-18.0The [facility] HospitalComment on above:Performed By: #### BMP, LIVER, LIPID, TSH #### [facility] [address] [place] [address] [address] Britt Sáurez nitrogen/Creatinine [Mass ratio]23.2 mg/mgNormalThe [facility] HospitalComment on above:Performed By: #### BMP, LIVER, LIPID, TSH #### [facility] [address] [place] [address] [address] Britt Leiva 77-73-9788POD3.828 uIU/mLNormal0.358-3.740Dayton Children'S HospitalComment on above:Performed By: #### BMP, LIVER, LIPID, TSH ####[facility] [address] [place] [address]Dr. Britt Mendoza VITAMIN D 25 OHon 89-08-5664BCC D 25-OH45.6 ng/mLNormalDayton Children'S Hospital Comment on above:Performed By: #### VITAD, PSASC #### [facility] [address] [place] [address] [address] Britt Aj [facility] Cr[facility] HospitalComment on above: Result Comment: <20 ng/mL Vit D deficient 20 - <30 ng/mL Vit D insufficient 30 - 100 ng/mL Vit D sufficient >100 ng/mL Potential ToxicityPerformed By: #### VITAD, PSASC #### [facility] [address] [place] [address] [address] Britt MendozaCovid-19 PCR (CVDTBH)on 85-82-9920PUJL-CoV-2 (COVID-19) RNA KATT+probe Ql (Unsp spec)DetectedCritically abnormalNOT DETECTEDThe [facility] HospitalComment on above:Result Comment: This test is not yet approved or cleared by the [place] FDA. When there are no FDA-approved or cleared tests available, and other criteria are met, FDA can make tests available under an emergency access mechanism called an Emergency Use Authorization (EUA). The EUA for this test is supported by the Quality Assurance Consultant of Health and Human Service's declaration that circumstances exist to justify the emergency use of in vitro diagnostics for the detection and/or diagnosis of the virusthat causes COVID-19. This EUA will remain in effect for the duration of the COVID-19 declaration ju stifying emergency of IVDs, unless it is terminated or revoked by the FDA (after which the test mayno longer be used).Performed By: #### CVDTBH ####[facility] [address] [place] [address]Dr. Britt Mendoza Cardiac Stress Teston 34-55-0191Dbjxtzk Stress TestNoDosher Memorial Hospital [address] [place] [address], [address], [place] [address] Exercise Stress Test Patient Name: LILIANA MICHAELS JR. Ordering Physician: [id number] Ty MD Study Date: 02/15/2022 Reading Physician: [id number] Ty MD MRN/PID: [id number] Supervising Physician: [id number] Yovani Rivera MD Accession/Order#: [id number] Referring Physician: VALENTINO TY Date of : 1965 PCP: Ishmael Simon Gender: M Fellow: Height: 162.56 cm Nurse: Yunior Bhatti RN Weight: 81.65 kg Batch Weigher: SAEID BSA: 1.87 m2 Technologist: BMI: 30.90 kg/m2 Additional Staff: Age: 56 years cc report to: Patient Location: cc report to: [id number] Valentino Ty MD Study Type: Cardiac Stress Test Diagnosis/ICD: R94.31-Abnormal electrocardiogram [ECG] [EKG]; R00.1-Bradycardia, unspecified; R06.00-Dyspnea, unspecified Indication: Dyspnea Procedure/CPT: Stress Test Interpretation-[id number]; Stress Test Supervision-[id number] Falls Risk: Low: Patient has low risk [...] test was terminated due to: leg fatigue andmusculoskeletal weakness. Sinus tachycardia with nonspecific ST-T changes. Baseline ECG: Resting ECG showed sinus bradycardia. Sinus bradycardia with nonspecific ST-T changes. Stress Stage Data: + +---+------+-------+ HR Sys BP Cornelius BP + +---+------+-------+ Baseline Resting 44 120 68 + +---+------+-------+ Baseline Standing 44 120 68 + +---+------+-------+ Stage I 80 142 76 + +---+------+-------+ Stage II 96 168 78 + +---+------+-------+ Stage III 125 174 82 + +---+------+-------+ Recovery ECG: The heart rate recovery was normal. + +---+------+-------+ HR Sys BP Cornelius BP + +---+------+-------+ Recovery I 125 176 80 + +---+------+-------+ Recovery II 104 172 76 + +---+------+-------+ Recovery III 55 146 72 + +---+------+-------+ Recovery IV 56 118 68 + +---+------+-------+ Summary: 1. Submaximal graded exercise stress test [...] 7. An element of chronotropic incompetency noted. [id number] Valentino Ty MD Electronically signed on 02/16/2022 at 2:52:20 PM Final NormalProwers Medical CenterCardiac Stress TestPlease click on the link to view the study [facility] Work Phone: Cardiac Stress TestNavos Health Heart-Helend[facility] 250 DO Work Phone: Office Visit (Cardiology)on 16-66-4470Okrevv-up visit Diagnoses/Problems Assessed Sinus bradycardia (427.89) (R00.1) Abnormal stress test (794.39) (R94.39) COPD (chronic obstructive pulmonary disease) (496) (J44.9) Class 1 obesity with body mass index (BMI) of 30.0 to 30.9 in adult (278.00,V85.30) (E66.9,Z68.30) Current smoker (305.1) (F17.200) 1 pack daily Dyspnea (786.09) (R06.00) Orders Abnormal stress test, Dyspnea, Sinus bradycardia Cardiac Stress Test; Status:Hold For - Scheduling,Retrospective Authorization; Requested for:28Jan2022; Class 1 obesity with [...] we can help. You may also call 5-214-YTXC-NOW for free resources and assistance.; Status:Complete - Retrospective Authorization; Done: [id number] SocHx: Current smoker Continue with our present treatment plan.; Status:Complete - Retrospective Authorization; Done: [id number] Tobacco Use Screening; Status:Complete; Done: 11Vsr5925 Patient Instructions Please bring all medicines, vitamins, [...] This led to a cardiac evaluation in [place] and its not clear to me whether [...] Oral Capsule Delayed ReleaseTAKE 1 CAPSULE Daily Wtqxsa1s at bedtime Sin (more content not included)...NormalUH TouchworksTobacco Screening.on 66-05-3316Ugutb depression screening assessmentNoNavos Health [facility] ExchangeNew [facility] NONO DO Work Phone: Fall risk assessmenta) No falls within the last year [facility] 600 DO Work Phone: Tobacco use status CPHSa) [facility] NONO [facility] Work Phone: Tobacco Screening.YesSt. [facility] 600 DO Work Phone: [phone]-27 PCR (CVDTBH)on 34-38-6085KTBF-CoV-2 (COVID- 19) RNA KATT+probe Ql (Unsp spec)Not detectedNormalNOT DETECTEDThe [facility] on above:Result Comment: This test is not yet approved or cleared by the [place] FDA. When there are no FDA-approved or cleared tests available, and other criteria are met, FDA can make tests available under an emergency access mechanism called an Emergency Use Authorization (EUA). The EUA for this test is supported by the [place] of Health and Human Service's (HHS's) declaration [...] of clinical signs and symptoms consistent with SARS-CoV-2.Performed By: #### CVDTB #### [facility] [address] [place], [place] [address] Dr. Britt Hylton-19 PCR ([facility])on 48-60-9222CMDZ-CoV-2 (COVID-19) RNA KATT+probe Ql (Unsp spec)Not detectedNormalNOT DETECTEDThe [facility] Comment on above:Result Comment: This test is not yet approved or cleared by the [place] FDA. When there are no FDA-approved or cleared tests available, and other criteria are met, FDA can make tests available under an emergency access mechanism called an Emergency Use Authorization (EUA). The EUA for this test is supported by the Quality Assurance Consultant of Health and Human Service's (HHS's) declaration that circumstances exist to justify the emergency use of in vitro diagnostics for the detection and/or diagnosis of the virus that causes COVID- 19. This EUA will remain in effect (meaning [...] of clinical signs and symptoms consistent with SARS-CoV-2.Performed By: #### CVDTBH ####[facility] [address] [place], [place] [address]TcDr. Britt MendozaXR CHEST 2 Von 48-55-8822EL CHEST 2 VEXAMINATION: XR CHEST 2 V HISTORY: Rib pain [...] Electronically authenticated by: FLEX JACOBS Date: 2021-10-01 09:30[facility] LimaAmbulatory Clinical Summaryon 32-57-7838Qcacwcmtbz Clinical Summary{10-x2-i2-07-69-8l-1a-85-wb-s7-x6-12-58-d2-cf-8d}CD:045228SsprwyTaebarKettering Health SpringfieldHistorical Records Officeon 90-58-3838Opcadbpfjd Records [id number]#1.00CD:127NoKettering Health SpringfieldPatient Educationon 13-86-4965Wwnbaup EducationUrology Erectile Dysfunction Erectile dysfunction (ED) is the [...] ring are placed on the penis and usedto create pressure that helps the penis become [...] these instructions at home: Medicines ? Take opem-lyd-wkzekmd and prescription medicines only as told by [...] care provider. Work with your health care providerto lose weight, if needed. ? Do not use any products that contain nicotine or tobacco, such as cigarettes and e-cigarettes. Ifyou need help quitting, ask your health care [...] to the nearest emergency room for evaluation. Anerection that lasts much longer than 4 hours can result in permanent damage to your penis. ? You have severe pain in your groin or abdomen. ? You develop redness or severe swelling of your (more content not included)... [facility] CenterUrology Office/Clinic Noteon 18-36-8248Snjeief Office/Clinic NoteChief Complaint OV for ED HPI Staff Pt [...] hip replacement. Pt states that he had aninjection of corticoid steroids in the upper thigh [...] still having trouble maintaining erections and achieving byrt684% strength. discussed penile injection therapy but pt is adamantly opposed. discussed penile pump/ring and he would like to give this a try. provided brochure to order. Ordered: Office Visit Level 4 Est 26480 2. Hypogonadism male (E29.1: Testicular hypofunction) noted in hx. testosterone 10/16/18 - 79 (normal range 264-916). however pt reports good energy, strength, stamina, and good interest in sex. lost 60# over the last couple years with diet. advised thattestosterone won't necessarily improve his ED and since he's not c/o any sx associated with low T we will hold off on checking/treating at this time. Ordered: Office Visit Level 4 Est 84856 3. BPH with urinary obstruction (N40.1: Benign prostatic hyperplasia with lower urinary tract symptoms) s/p Urolift September 2018. Pt is currently taking no bladder/prostate medication and is mostly satisfiedwith overall symptom control. has nocturia but attributes this to diuretics. Pt prefers to continuewith no changes at this time. PCP checking PSAs per pt. Ordered: Office Visit Level 4 Est 01129 Orders: Urnls Dip Stick Auto w/o Microscopy POC 43099 offered f/u 1 yr but pt prefers PRN. Total time spent reviewing previous notes/results/external documents, preparing the chart, conducting the encounter with the patient and family, ordering tests/medications, and documenting the encounter was 30 minutes. Follow-up With When Contact Information ITA SLOAN, SIMONE Priest [address] [place] [address]- Additional Instructions: Patient Education Erectile [...] mcg-25 mcg inhalation powde (more content not included)...[facility] Medical CenterComment on above:Result Comment: Electronically Signed By: DANIEL MARTINEZ, TOMEKA Muse.br\Date and Time Signed: 03/05/2112:24 EDTMRI PELVIS WO CONTRASTon 04-11-4419NOX PELVIS WO CONTRAST [facility] Department of Radiology [address] [place] [address] Patient Name: LILIANA MICHAELS : 1965 Sex: M Age: Race: White Pt. Location: 18 Patient Status: Ordered Date: 09/10/2020 3:35:00 PM Completed Date: 10/03/2020 08:34 AM Requesting Provider: SIMONE RUIZ Attending Provider: Report Copy To: Signs & Symptoms: R10.2 Pelvic and perineal pain I10 History: Lenore, Right FOREIGN per clinic will fax [facility] auth# [id number] 09/16/20-10/17/20 cpt code 65366 *mla Comments: Right groin to r/o an [...] spine. Electronically signed: Dinh Miller. Transcribed by: [email or web address], User Resident: Electronically Signed by: DINH MILLER @ 10/03/2020 09:57 AMNormalThe [facility] CampusComment on above:Order Comment: Right groin to r/o an adductor tear; iliopsoas bursitis or injuryOperative Reporton 23-62-3056Ykvmaonvk ReportMR#: [id number] S [facility] Pt. Name: Liliana Michaels Room #: PMC [...] Ruiz MD Date Trans: 09/10/2020 11:40 P/eva DN_JN:[id number] cc: Ishmael Simon M.D. [address] [place] [address]IuuckbPoiKettering Health HamiltonCoding Summary.on 52-89-8917Hbeetk Summary. CD:[id number]:[id number]+PGhlYWQ+PC4UKOJhR51euCOneP9AG4sXQO5TMJUDNIYLYZ9QOW8ae WW2YKjvO6HuqwRq [file] OiBj (more content not included)...NormalKettering Health SpringfieldAuto Diffon 52-37-7090Xzwcalvmg/100 WBC (Bld)1.0 %Normal0.0-2.0[facility] Comment on above:Order Comment: Order Added by Discern Expert.Performed By: #### 98894542, 5747449, 6256642, 81759974, 7265080, 9091684, 37355619, 36707412 ####[address] [place] [address] Basophils/Leukocytes Auto (Bld) [Pure # fraction]0.1 E9/LNormal0.0-0.2FFirelands Regional Medical CenterComment on above:Order Comment: Order Added by Discern Expert.Performed By: #### 46162917, 5355746, 4381741, 36532473, 2551855, 9100146, 59967457, 00464705 ####[address] [place], [place] [address]Pncihlbwjba/100 WBC (Bld)2.5 %Normal0.0-8.0[facility] SpringfieldComment on above:Order Comment: Order Added by Discern Expert.Performed By: #### 94087200, 7780994, 4552303, 07455870, 7074432, 0469085, 96633471, 25034130 ####[facility] [address] [place], [place] [address]Eielvlxvzuh/Leukocytes Auto (Bld) [Pure # fraction] 0.3 E9/LNormal0.0-0.5FFirelands Regional Medical CenterComment on above:Order Comment: Order Added by Discern Expert.Performed By: #### 97999647, 0629302, 4883542, 58021985, 9231679, 7176866, 12998074, 55010533 ####[address] [place], [place] [address]Hkcuubtsgvy/100 WBC (Bld)21.0 %Normal 14.0-50.0[facility] SpringfieldComment on above:Order Comment: Order Added by Discern Expert.Performed By: #### 56757324, 9764567, 0047737, 91920982, 5396004, 7425893, 66750507, 90881082 ####[place] [place], [place] [address]Cabvgzxkxyg/Leukocytes Auto (Bld) [Pure # fraction]2.1 E9/LNormal1.0-4.0[facility] SpringfieldComment on above:Order Comment: Order Added by Discern Expert.Performed By: #### 64895408, 6300096, 2955523, 97422615, 0046248, 2041912, 72615496, 43696388 ####[address] [address]Zrsezkodi/100 WBC (Bld)6.2 %Normal4.0-14.0[facility] SpringfieldComment on above:Order Comment: Order Added by Discern Expert.Performed By: #### 50830123, 2574593, 5976543, 40144472, 4146592, 8669775, 99260381, 59591367 ####[place] [address]Jakorawqs/Leukocytes Auto (Bld) [Pure # fraction]0.6 E9/LNormal0.2-1.0[facility] SpringfieldComment on above:Order Comment: Order Added by Discern Expert.Performed By: #### 74908152, 1967191, 5337628, 13827060, 1630828, 4963358, 35835173, 28900669 ####[place] [address] [address] Neutrophils/100 WBC (Bld)69.3 %Urqjko40.0-75.0K[facility] SpringfieldComment on above:Order Comment: Order Added by Discern Expert.Performed By: #### 50397198, 0515177, 3727694, 05235751, 7263775, 3465744, 15813855, 90969527 ####[address] [place] [address] Neutrophils/Leukocytes Auto (Bld) [Pure # fraction]6.9 E9/LNormal2.0-7.5FFirelands Regional Medical CenterComment on above:Order Comment: Order Added by Discern Expert.Performed By: #### 12484015, 8559011, 3532972, 93093649, 5047673, 6898088, 40577810, 72526226 ####[address] [address]SGZfk 97-36-2044Ummthiclzd [Mass/Vol]1.1 mg/dL Normal0.5-1.3FFirelands Regional Medical CenterComment on above:Performed By: #### 86425587, 2781558, 7198399, 10550511, 5937744, 2329204, 38724436, 98210487 ####[address] [address]Mxrw nitrogen [Mass/Vol]19 mg/dLNormal5-21K[facility] Health SpringfieldComment on above:Performed By: #### 25458514, 0007768, 7890508, 21890107, 3974544, 8722953, 41894391, 75844003 ####[address] [address]Siby nitrogen/Creatinine [Mass ratio]17 No DlgdgKlrvep82-82 [facility] SpringfieldComment on above:Performed By: #### 18273568, 8637527, 3068064, 07159610, 6631629, 5089521, 58301652, 54375361 ####[address] [place], [place] [address]Gevir gap [Moles/Vol]14 mmol/LNormal6-16K[facility] Health SpringfieldComment on above: Performed By: #### 44064877, 6432212, 3009975, 90894384, 5831644, 4604142, 03760944, 73627715 ####[facility] [address] [place], [place] [address]Kvlrwkv [Mass/Vol]9.4 mg/dLNormal8.9-11.1FFirelands Regional Medical CenterComment on above:Performed By: #### 23914824, 8762184, 2389149, 77131808, 2102983, 9093174, 76052493, 64150966 ####[facility] [address] [place], [place] [address]Uuyuqrdm [Moles/Vol]94 mmol/LLow 101-111K[facility] Health SpringfieldComment on above:Performed By: #### 65244741, 6444325, 7435293, 96665330, 2899179, 9359028, 97038148, 60729224 ####[facility] [address] [place], [place] [address]ZR1 [Moles/Vol] 29 mmol/JXtzdqt43-60GiapnyKettering Health SpringfieldComment on above:Performed By: #### 58738956, 2905621, 6480673, 75226952, 3587488, 5100191, 28879229, 15939878 ####[facility] [address] [place] [address] Glucose [Mass/Vol]103 mg/yWSiwsad67-645CfapisKettering Health SpringfieldComment on above:Result Comment: If this glucose result represents a fasting glucose, interpretation should refer tothe following reference range: 55-99 mg/dL Performed By: #### 06607408, 5820577, 5981660, 96363154, 9668962, 6467852, 11282362, 23883391 ####[facility] [address] [place], [place] [address]Iayogdjqn [Moles/Vol]4.0 mmol/LNormal3.5-5.3FFirelands Regional Medical CenterComment on above:Performed By: #### 30001921, 1427359, 9426865, 34636644, 9416228, 1622468, 50251985, 57158071 ####[facility] [address] [place], [place] [address]Rclgnh [Moles/Vol]133 mmol/LLow 135-145K[facility] Health SpringfieldComment on above:Performed By: #### 35143185, 5156965, 6283486, 31119942, 8168460, 5338888, 15374716, 26604988 ####[address] [place], [place] [address]YZYmy 08-24-2020 Natriuretic peptide B (Bld) [Mass/Vol]17 pg/mLNormal5-80[facility] SpringfieldComment on above:Performed By: #### 67976565, 1009670, 3877545, 60444221, 3850708, 9414433, 34434341, 90722555 ####[address] [address]HJS w/ Auto Diffon 08-24-2020 Erythrocyte distribution width (RBC) [Ratio]12.9 %Jplacg00.9-14.2FFirelands Regional Medical CenterComment on above:Performed By: #### 35462685, 2244014, 4499658, 32783683, 2102959, 0711934, 61343865, 00037073 ####[address] [place], [place] [address]Darqthnrlz (Bld) [Volume fraction] 44.4 %Dagnto55.7-49.0K[facility] SpringfieldComment on above:Performed By: #### 95183061, 1393338, 7959537, 27187418, 3218743, 2670760, 79578610, 31059960 ####[address] [place] [address] Hemoglobin (Bld) [Mass/Vol]15.3 g/yHTfvafh15.5-17.5FFirelands Regional Medical Center Comment on above:Performed By: #### 18225908, 6130995, 9140949, 54480240, 2164332, 8143601, 82350465, 95951495 ####[address] [facility] [address] [place] [address]QEY (RBC) [Entitic mass]31.5 pgNormal 27.0-34.0[facility] Health SpringfieldComment on above:Performed By: #### 34519533, 2588531, 6344944, 54034889, 2609107, 6846157, 51944141, 13533902 ####[address] [address]EPJJ (RBC) [Mass/Vol]34.4 g/fUXnycid46.4-36.0[facility] SpringfieldComment on above:Performed By: #### 47563186, 3694683, 0274330, 42174140, 2556676, 6562325, 55211960, 83938073 ####[address] [address]IMZ (RBC) [Entitic vol]91.6 cQUctkmi33.0-100.0[facility] SpringfieldComment on above:Performed By: #### 20998148, 5084688, 2516659, 31498562, 7940193, 2363350, 35961808, 33993905 ####[address] [address]Qwfrcvmj mean volume (Bld) [Entitic vol]8.4 fLNormal6.4-10.8[facility] SpringfieldComment on above:Performed By: #### 49995327, 8136724, 1655230, 76675072, 6158557, 7482984, 15312308, 27741791 ####[address] [address]Tvosqlodi (Bld) [#/Vol]289.0 E9/JTwslha061.0-500.0[facility] SpringfieldComment on above:Performed By: #### 33498689, 6343239, 3918076, 88808411, 4550974, 0645086, 32526785, 03023721 ####[facility] [address] [place], [place] [address]ODQ (Bld) [#/Vol]4.8 E12/LNormal 4.3-5.9[facility] SpringfieldComment on above:Performed By: #### 40047774, 3790372, 5141140, 50933096, 6318555, 2123134, 13372952, 31161961 ####[facility] [address] [place], [place] [address]KQT corrected for nucl RBC Auto (Bld) [#/Vol]9.9 E9/LNormal4.0-11.0[facility] Comment on above:Performed By: #### 79597679, 3405768, 8330916, 98219055, 4011825, 5195052, 57260038, 69732936 ####[facility] [address] [place], [place] [address]JAO Cheston 20-63-5730SXQ ChestExam Date/Time: 08/24/2020 01:56 EDT Reason for Exam: [...] Contrast: Isovue 370 Contrast amount in ml's: 78NoKettering Health SpringfieldConsent for Treatmenton 61-52-9952Afvvmfj for Treatment [id number]#1.00CD:127[facility] Medical CenterD-Dimeron 56-94-9953Uxzwxu D-dimer FEU (PPP) [Mass/Vol]845 ng/mLAbnormal 215-500K[facility] Health SpringfieldComment on above:Result Comment: Results Verified By Repeat Analysis Results Called To [...] infections, pneumonia, severe skin infections Liver cirrhosis PregnancyPerformed By: #### 22798106, 9361383, 6576001, 55128267, 1910772, 4955119, 43494252, 07360662 ####[facility] [address] [place], [place] [address]Amienefuw Instructionson 48-94-0199Mdcpxadii [id number]#1.00CD:127NoTri[facility] Clinical Summaryon 54-37-3914FV Clinical Summary [address] [address] ED Clinical Summary Person Information Name: LILIANA MICHAELS [facility]ine[facility] Age: 55 Years : 1965 Sex: Male Language: Luxembourgish PCP: SIMONE JEAN BAPTISTE DC Marital Status: Single Phone: [phone] Visit Id: Visit Reason: Rib/trunk pain-swelling; SIDE [...] 08/24/2020 03:27:58 08/24/2020 03:27:58 08/24/2020 03:27:58 ADDRESS: [address] [place] [id number] PHYS DOC NOTES: MEDICAL INFORMATION: Prescriptions Given: New Medications [id number], [address], [place] [id number], [phone] azithromycin (Zithromax TRI-AMIRA 500 mg oral tablet) [...] With: Address: When: SIMONE JEAN BAPTISTE [address] [place] [address] [facility] (1) In 1 day 08/25/2020 Comments: Patient is advised to follow-up with his primary care physician in 1 to 2 days. He is also advised to come back to the emergency department if symptoms get worse. DIAGNOSIS: 1:Rib pain on left sideNoalFisher Parth Medical CenterED Note-Physicianon 13-06-8818OS Note-PhysicianBasic Information Time Seen: Pia LANE, David 08/24/2020 [...] no food allergies, no recurrent infections, no impairedimmunity Additional ROS info: Except as noted in [...] rib pain. Patient Covid test came out day negative. Patient will be discharged home to [...] date 08/24/20 2:30:00 EDT Rapid COVID Antigen ([facility]) Orders: albuterol-ipratropium, 3 mL, Soln-Inh, Inhalation, Once, Stop date 08/24/20 0:16:00 EDT, STAT, Start date 08/24/20 0:16:00 EDT azithromycin, 500 mg = 1 tab(s), Oral, Daily, # 3 tab(s), Refills(s) 0, Pharmacy: [id number], 163, cm, 08/24/20 0:04:00 EDT, [...] 08/24/20 0:04:00 EDT, Julian (more content not included)...[facility] Medical CenterComment on above:Result Comment: Electronically Signed By: Pia LANE, David\.br\Date and Time Signed: 08/24/20 03:10 EDTED Patient Education Noteon 58-86-3275IS Patient Education NoteChest Pain (Nonspecific) It is often hard to give a specific diagnosis for the cause of chest pain. There is always a chancethat your pain could be related to something serious, such as a heart attack or a blood clot in thelungs. You need to follow up with your health care provider for further evaluation. CAUSES ? Heartburn. ? Pneumonia or bronchitis. ? Anxiety or stress. ? Inflammation around your heart (pericarditis) or lung (pleuritis or pleurisy). ? A blood clot in the lung. ? A collapsed lung (pneumothorax). It can develop suddenly on its own (spontaneous pneumothorax) orfrom trauma to the chest. ? Shingles infection [...] ambulatory electrocardiogram (ECG). An ECG records your heartbeatpatterns over a 24-hour period. You may also have other tests, such as: ? Transthoracic echocardiogram (TTE). During echocardiography, sound waves are used to evaluate howblood flows through your heart. ? Transesophageal echocardiogram (FREDDY). ? Cardiac monitoring. This allows your health care provider to monitor your heart rate and rhythm in real time. ? Holter monitor. This is a portable device that records your heartbeat and can help diagnose heartarrhythmias. It allows your health care provider to [...] testing if your chest pain does not goaway. ? Keep any follow-up appointments you made. [...] Document Reviewed: 11/28/2008 ExitCare? Patient Information ?2015 [employer]. This information is not intended to replace advice given to you by your health care provider. Make sure you discuss any questions you have with yourhealth care provider.[facility] Patient Summaryon 75-23-5155AI Patient Summary [address] [address] Patient Discharge Instructions Person Information Name: LILIANA MICHAELS Age: 55 Years Arrival Date: 08/23/2020 23:48:11 Discharge Diagnosis: 1:Rib pain on left side Primary Care Physician: SIMONE JEAN BAPTISTE DC Provider Information Primary Provider: Pia LANE, David [employer] Lieutenant:None The exam and treatment you received in the Emergency Department were for an urgent problem and are not intended as complete care. It is important that you follow up with a doctor, nurse practitioner,or physician?s night assistant for ongoing care. If your symptoms become worse or you do not improve as expected and you are unable to reach your usual health care provider, you should return to the Emergency Department. We are available 24 hours a day. LILIANA MICHAELS has been given the following list of patient education materials, prescriptions andfollow-up instructions: Follow-up Instructions: With: Address: When: SIMONE ITA [address] [place] [address] Business (1) In 1 day 08/25/2020 Comments: [...] opioids can be used to help relieve lklismaf-yp-ygnkzc pain and are often prescribed following a [...] and have fewer risks and side effects. Optionsmay include: ? Pain relievers such as acetaminophen, [...] unused prescription opioids: Find your community drug take- back program or your[facility] hospitalEcrebo mail-back program, or flush them down the toilet, following guidance from the Food and Drug Administration (www.fda.gov/Drugs/ResourcesForYou). ? Visit www.cdc.gov/drugoverdose to learn about the risks of opioids abuse and overdose. ? If you believe you may be struggling (more content not included)...Normal [facility] SpringfieldPT & PTTon 40-29-2925lBKT Coag (PPP) [Time]30.2 second(s)Mzmaok64.1-36.5FFirelands Regional Medical CenterComment on above:Result Comment: Heparin therapeutic range (represented by Anti-Factor Xa activity of 0.2 - 0.4 U/mL) corresponds to PTT of 56.6 - 109.0 sec.Performed By: #### 42581960, 2370244, 9089316, 68383721, 6412724, 7930345, 52924454, 21588861 ####[facility] [address] [place], [place] [address]ASP Coag (PPP) [Relative time]1.0 {INR}Invalid Interpretation CodeKettering Health Springfield Comment on above:Result Comment: INR results are specifically intended to assess patients stabilized on long-term Anticoagulation therapy suggested INR?s ?Less Intensive Anticoagulation? 2.0 ? 3.0 Conventional Range 3.0 ? 4.5Performed By: #### [id number], 6473903, 4172263, 29323338, 9453000, 1944343, 64621238, 71941957 ####[facility] [address] [place], [place] [address]SN Coag (PPP) [Time]11.6 second(s) Jrgpav15.2-12.9[facility] SpringfieldComment on above:Performed By: #### [id number], 6061469, 8000104, 89753562, 1424177, 2707317, 06580964, 78858972 ####[facility] [address] [place], [place] [address]LFZ - Preliminary Cat Scan Reporton [id number] - Preliminary Cat Scan Report [id number]#1.00CD:127NormalKettering Health SpringfieldRapid COVID Antigen ([facility])on 91-18-0317Todvd COV Int NEG CtlPassNormal [facility] SpringfieldComment on above:Performed By: #### [id number] ####[facility] Vdcyqretrs440 [facility] SH51325Qsahp COV Int POS CtlPassNormalKettering Health SpringfieldComment on above:Performed By: #### [id number] ####[facility] Zmsitdtzoh951 [facility], RC33564KEIM-RfT-2 (COVID-19) RNA KATT+probe Ql (Unsp spec)Not detectedNormalNot DetectedKettering Health SpringfieldComment on above:Result Comment: The Poachable System for Rapid Detection of SARS-CoV-2 is a chromatographic digital immunoassay intended for the direct and qualitative detection of SARS-CoV-2 nucleocapsid antigensin nasal swabs from individuals who are suspected [...] of proteins from SARS-CoV-2, not for any otherviruses or pathogens; and, in the [facility], this test is only authorized for the duration of the declaration that circumstances exist justifying the authorization of emergency use of in vitro diagnostics for detection and/or diagnosis of the virus that causes COVID-19 under Section 564(b)(1) of the Act,21 U.S.C. ? 360bbb-3(b)(1), unless the authorization is terminated or revoked sooner.Performed By: #### [id number] ####[place] [address], AJ[address]Zrjxbbgi in Healthcare [facility] CampusComment on above:Performed By: #### [id number] ####[place] [address]Norst[address] [place], [place] [address]Vejkp TestUnknownNPremier HealthComment on above: Performed By: #### [id number] ####[place] [address]Norst[address] clare[address] hospitalk, UJ[address]Ytuwaivgohtq?[facility] Comment on above:Performed By: #### [id number] ####[place] [address]ry AveNyale new [facility], BN[address]NJVZEKdpwssLtgixpSt. Vincent Hospital Comment on above:Performed By: #### [id number] ####[place] [address]Norwalk, [place]Dayumdlr?[facility] CampusComment on above:Performed By: #### [id number] ####[place] [address], PF26543Vxavmzs in a Congregate Care SettingSumma Health Akron CampusComment on above:Performed By: #### [id number] ####[facility] [address]Norwalk, [place] [address]Hpifsgdlakq as defined by [facility] HAYWARDYESPremier Health Atrium Medical CenterComment on above:Performed By: #### [id number] ####[facility] [address] [place], [place]Troponin 0 Hr.on 47-33-9458Mrfoueol I.cardiac [Mass/Vol]4.10 pg/mLLow15.90-38.40K[facility] Health SpringfieldComment on above:Result Comment: The 95% CI (Confidence Interval) PPV (Positive Predictive Value) for myocardial infarction in females is 38 pg/mL, in males 51 pg/mL. The results should be used in conjunction with clinical conditions of myocardial infarction. (Access High Sensitivity Troponin I Instructions For Use, No Paper Just Vapor, December 2017)Performed By: #### [id number], 1428715, 2176570, 92345637, 7242121, 5124265, 47354246, 57446857 ####[facility] [address] [place], [place] [address]Kwmzvxwl 3 Hr.on 56-31-3545Yvhwzbxf I.cardiac [Mass/Vol]4.40 pg/mLLow15.90-38.40[facility] SpringfieldComment on above: Result Comment: The 95% CI (Confidence Interval) PPV (Positive Predictive Value) for myocardial infarction in females is 38 pg/mL, in males 51 pg/mL. The results should be used in conjunction with clinical conditions of myocardial infarction. (Access High Sensitivity Troponin I Instructions For Use, No Paper Just Vapor, December 2017)Performed By: #### [id number] ####[place] [address] [place], [place] [address]SE Chest Single Viewon 86-21-3844TB Chest Single ViewExam Date/Time: 08/24/2020 01:04 EDT Reason for Exam: [...] Reis MD, V. Transcribed by: VIVIAN Technologist: BrianKettering Health SpringfieldeGFRon 52-80-1980TDV/1.73 sq M.predicted among blacks MDRD (S/P/Bld) [Vol rate/Area] mL/min/{1.73_m2}Normal>=59K[facility] Health SpringfieldComment on above:Order Comment: Order added by Discern Expert.Result Comment: eGFR is race adjusted. AA=.Performed By: #### [id number], 9131164, 5539633, 62918296, 9987484, 4225667, 53195210, 30936695 ####[facility] [address]ahbzj[address] [place], [place] [address]KDE/1.73 sq M.predicted among non- blacks MDRD (S/P/Bld) [Vol rate/Area]mL/min/{1.73_m2}Normal>=59K[facility] Health SpringfieldComment on above:Order Comment: Order added by Discern Expert. Result Comment: Chronic kidney disease could be indicated at eGFR's of less than 60 mL/min/1.73m2. Kidney failure is indicated at less than 15 mL/min/1.73m2. Performed By: #### [id number], 7651712, 3588473, 24605188, 3593419, 5196954, 42652975, 38821691 ####[facility] [place], [place] [address]BAZ RIGHT 1 OR 2 VWS WITH PELVISon 90-51-3809KOR RIGHT 1 OR 2 VWS WITH PELVISUnGuernsey Memorial Hospital Department of Radiology [address] [place] [address] Patient Name: LILIANA MICHAELS : 1965 Sex: M Age: Race: White Pt. Location: 84 Patient Status: Ordered Date: 07/24/2020 9:30:00 AM Completed Date: 07/24/2020 09:44 AM Requesting Provider: JEY MUNGUIA Attending Provider: Report Copy To: Signs & [...] Electronically signed: Ana M Mariee. Transcribed by: [email or web address], User Resident: Electronically Signed by: ANA M MARIEE @ 07/24/2020 10:01 AMNCorey HospitalComment on above:Order Comment: Views (X-RAY, HIP): Radiologic ProtocolHIP RIGHT 1 OR 2 VWS WITH PELVISon 26-34-7768XGH RIGHT 1 OR 2 VWS WITH PELVISUnGuernsey Memorial Hospital Department of Radiology [address] [place] [id number] Patient Name: LILIANA MICHAELS : 1965 Sex: M Age: Race: White Pt. Location: Patient Status: D Ordered Date: 04/24/2020 10:40:00 AM Completed Date: 04/24/2020 10:48 AM Requesting Provider: JEY MUNGUIA Attending Provider: Report Copy To: Signs & [...] abnormality. Electronically signed: Ed España. Transcribed by: [email or web address], User Resident: Electronically Signed by: ED ESPAÑA @ 04/25/2020 08:22 AMNormalThe [facility] CampusComment on above:Order Comment: Views (X-RAY, HIP): Radiologic ProtocolOperative Reporton [id number] ReportMR#: [id number] [facility] Pt. Name: Liliana Michaels Room #: 6AB 452011 Discharge 03/15/2020 Date: Birthdate: 1965 OPERATIVE REPORT DATE OF SURGERY: 03/14/2020 SURGEON: Jey Munguia MD PREOPERATIVE DIAGNOSIS: Right hip degenerative joint [...] in the correct a (more content not included)...NormalThe [facility] CampusBASIC METABOLIC PANELon 49-98-7737Segcsil [Mass/Vol]8.8 mg/dLNormal8.6-10.3The [facility] CampusComment on above:Order Comment: Views (X-RAY, HIP): Radiologic ProtocolPerformed By: #### 40343 ####[facility] [place] [address], USAChloride [Moles/Vol]98 mmol/OAuiipc27-069Yzl [facility] CampusComment on above:Order Comment: Views (X-RAY, HIP): Radiologic ProtocolPerformed By: #### 74905 ####[facility] [place] [address], [facility] MEXICOCO2 [Moles/Vol]30 mmol/L Ivhplj85-15Gfm [facility] CampusComment on above:Order Comment: Views (X-RAY, HIP): Radiologic ProtocolPerformed By: #### 40052 ####[facility] [place] [address], [facility] Creatinine [Mass/Vol]0.96 mg/dLNormal0.70-1.30The [facility] CampusComment on above:Order Comment: Views (X-RAY, HIP): Radiologic Protocol Performed By: #### 00518 ####[facility] [place] [address], USAGFR/1.73 sq M.predicted among blacks MDRD (S/P/Bld) [Vol rate/Area]mL/min/{1.73_m2}Normal>60The [facility] Comment on above:Order Comment: Views (X-RAY, HIP): Radiologic ProtocolPerformed By: #### 23423 ####[facility] [place] [address], USAGFR/1.73 sq M.predicted among non-blacks MDRD (S/P/Bld) [Vol rate/Area]mL/min/{1.73_m2}Normal>60The [facility] Comment on above:Order Comment: Views (X-RAY, HIP): Radiologic ProtocolPerformed By: #### 18868 ####[facility] [place] [address], USAGlucose [Mass/Vol]151 mg/dBEhdd40-594Hwo [facility] CampusComment on above:Order Comment: Views (X-RAY, HIP): Radiologic ProtocolPerformed By: #### 38027 ####[facility] [place] [address], USAPotassium [Moles/Vol]4.4 mmol/LNormal3.5-5.1 The [facility] CampusComment on above:Order Comment: Views (X- RAY, HIP): Radiologic ProtocolPerformed By: #### 96272 ####[facility] [address], USASodium [Moles/Vol]133 mmol/TSng209-275Htf [facility] CampusComment on above:Order Comment: Views (X-RAY, HIP): Radiologic ProtocolPerformed By: #### 25372 ####[facility] [place] [address], [place] Urea nitrogen [Mass/Vol]20 mg/dLNormal7-25The [facility] CampusComment on above:Order Comment: Views (X-RAY, HIP): Radiologic Protocol Performed By: #### 42343 ####[facility] [place] [address], USACBC COMPLETE BLOOD COUNTon 70-23-7658Hmuuneierhz distribution width (RBC) [Ratio]12.2 %Cpvcly41.5-15.0The [facility] CampusComment on above:Order Comment: No: Do not add to previous draw Performed By: #### 98138 #### [facility] [address] [place] [address], USAHematocrit (Bld) [Volume fraction]42.2 %Fahdfa63.0-50.0The [facility] CampusComment on above:Order Comment: No: Do not add to previous drawPerformed By: #### 31023 #### [facility] [address] [facility] [place] [address], USAHemoglobin (Bld) [Mass/Vol]13.9 g/cMDlajqu65.0-17.0The [facility] CampusComment on above:Order Comment: No: Do not add to previous drawPerformed By: #### 34618 #### [facility] [address] [place] [address], [facility] (RBC) [Entitic mass]31.4 jkNxspbp04.0-33.0The [facility] CampusComment on above:Order Comment: No: Do not add to previous drawPerformed By: #### 11864 #### [facility] [address]IA[address] HOSPITALCem. [place] [id number], [facility]HC (RBC) [Mass/Vol]32.9 g/gBEpmoyh43.0-35.0The [facility] CampusComment on above:Order Comment: No: Do not add to previous drawPerformed By: #### 07133 #### [facility] [address] [facility] [address], [facility]V (RBC) [Entitic vol]95.5 nSVhkrkb76.0-98.0The [facility] CampusComment on above:Order Comment: No: Do not add to previous drawPerformed By: #### 02331 #### [facility] [address] [facility] [address], USANucleated RBC/100 WBC (Bld) [Ratio]0 %Normal0-0The [facility] CampusComment on above:Order Comment: No: Do not add to previous drawPerformed By: #### 08148 #### [facility] [address] [place] [address], USAPLAT VDG551 10*3/hWRlylgu975-742Ika [facility] CampusComment on above:Order Comment: No: Do not add to previous draw Performed By: #### 65418 #### [facility] [address] [facility] [address], [facility] S[facility] MEXICORBC (Bld) [#/Vol]4.42 10*6/uLNormal4.20-5.70The [facility] Schmidt Medical CenterComment on above:Order Comment: No: Do not add to previous drawPerformed By: #### 55617 #### [facility] [address] [place] [address], USAWBC (Bld) [#/Vol]14.44 10*3/uLHigh4.00-10.60The [facility] CampusComment on above:Order Comment: No: Do not add to previous drawPerformed By: #### 19862 #### [facility] [address] [place] [address], USAPOC GLUCOSE LABon 07-78-5598Sgihqwe [Mass/Vol]193 mg/dLHigh 70-100The [facility] CampusComment on above:Performed By: #### 23150 #### [facility] [address] [facility] [place] [address], USACBC W/DIFFon 04-37-0745FDK IMM GRANS0.2 10*3/uLNormal 0.0-0.2The [facility] CampusComment on above:Performed By: #### 58143 ####[facility] [place] [address], USAABS NEUTROPHILS8.0 10*3/uLHigh1.6-7.6The [facility] CampusComment on above:Performed By: #### 97243 ####[facility] [place] [address], USABasophils (Bld) [#/Vol]0.1 10*3/uLNormal0.0-0.2The [facility] CampusComment on above: Performed By: #### 28670 ####[facility] [place] [address], USABasophils/100 WBC (Bld)1.1 %High0.0-1.0The [facility] CampusComment on above:Performed By: #### 66797 ####[facility] [place] [address], [facility] MEXICOEosinophils (Bld) [#/Vol]0.3 10*3/uLNormal0.0-0.5The [facility] Comment on above:Performed By: #### 65719 ####[address] [place] [address], [facility] MEXICOEosinophils/100 WBC (Bld)2.7 % Normal0.0-6.0The [facility] CampusComment on above:Performed By: #### 43831 ####[address] [place] [address], [facility] S[facility]THER[facility] NEW MEXICOErythrocyte distribution width (RBC) [Ratio]12.3 %Dapczu43.5-15.0 The [facility] CampusComment on above:Performed By: #### 60770 ####[address] [place] [address], [facility] Hematocrit (Bld) [Volume fraction]50.5 %High39.0-50.0The [facility] CampusComment on above:Performed By: #### 701[address] ####[place] [address], [facility] MEXICOHemoglobin (Bld) [Mass/Vol]17.3 g/oMGbbo60.0-17.0The [facility] CampusComment on above:Performed By: #### 28465 ####[place] [address], [facility] MEXICOIMMATURE GRANS1.4 %High0.0-1.0The [facility] CampusComment on above:Performed By: #### 44244 ####[place] [address], [facility] MEXICOLymphocytes (Bld) [#/Vol]1.8 10*3/uLNormal1.2-4.0The [facility] Comment on above:Performed By: #### 69388 ####[facility] [place] [address], [facility] MEXICOLymphocytes/100 WBC (Bld)15.6 %Low 20.0-45.0The [facility] CampusComment on above:Performed By: #### 68571 ####[facility] [place] [address], [facility] (RBC) [Entitic mass]31.7 doMzykal32.0-33.0The [facility] CampusComment on above:Performed By: #### 68702 ####[facility] [place] [address], [facility] SOUTHER[facility] MEXICOMCHC (RBC) [Mass/Vol]34.3 g/hIVcgsik93.0-35.0The [facility] CampusComment on above: Performed By: #### 63360 ####[facility] [place] [address].[place] [address], [facility]OS[facility] OF SOUTHERN NEW MEXICOMCV (RBC) [Entitic vol]92.7 yHHhtsdw98.0-98.0The [facility] CampusComment on above:Performed By: #### 38292 ####[facility] [place] [address], [facility] Monocytes (Bld) [#/Vol]0.9 10*3/uLNormal0.1-1.0The [facility] CampusComment on above:Performed By: #### 05643 ####[facility] [place] [address], [facility] SOUTHER[facility] NEW MEXICOMONOS8.2 %Normal5.0-12.0The [facility] CampusComment on above:Performed By: #### 69288 ####[facility] [place] [address].[place] [address], [facility] Neutrophils/100 WBC (Bld)71.0 %Wqigan15.0-72.0The [facility] CampusComment on above:Performed By: #### 42553 ####[facility] [place] [address], USANucleated RBC/100 WBC (Bld) [Ratio]0 %Normal0-0The [facility] CampusComment on above: Performed By: #### 94108 ####[facility] [facility] [address], USAPLAT CWC412 10*3/cXOqvknn269-318Kqi [facility] CampusComment on above:Performed By: #### 39475 ####[facility] [facility] [place] [address], USARBC (Bld) [#/Vol] 5.45 10*6/uLNormal4.20-5.70The [facility] CampusComment on above:Performed By: #### 10248 ####[facility] [place] [address], [facility] OF SOUTHER[facility] NEW MEXICOWBC (Bld) [#/Vol]11.22 10*3/uLHigh4.00-10.60 The [facility] CampusComment on above:Performed By: #### 77373 ####[facility] [place] [address], [facility] HIP RIGHT 1 OR 2 VWS WITH PELVISon 39-88-8515YYT RIGHT 1 OR 2 VWS WITH PELVIS [facility] Department of Radiology [address] [place] [phone] Patient Name: LILIANA MICHAELS : 1965 Sex: M Age: Race: White Pt. Location: OUTP Patient Status: O Ordered Date: 03/14/2020 6:40:00 AM Completed Date: 03/14/2020 10:47 AM Requesting Provider: JEY MUNGUIA Attending Provider: JEY MUNGUIA Report Copy To: Signs & Symptoms: RT FOREIGN History: Comments: RT FOREIGN Exam: HIP RIGHT 1 OR 2 VWS WITH PELVIS HIP RIGHT 1 OR 2 VWS WITH PELVIS 03/14/2020 10:47 AM CLINICAL INDICATIONS: RT FOREIGN TECHNOLOGIST COMMENTS: Dr. Munguia used .44 min of gold fluoro time rt hip arthroplasty QUESTION FOR THE RADIOLOGIST: RT FOREIGN PROTOCOL: AP(PA) and Lateral views were obtained. COMPARISON: None FINDINGS: Multiple spot fluoroscopic images demonstrate placement of right total hip arthroplasty. Dictation for documentation purposes IMPRESSION: Multiple spot fluoroscopic images demonstrate placement of right total hip arthroplasty. Dictation for documentation purposes Electronically signed: Aria Steinberg. Transcribed by: [email or web address], User Resident: Electronically Signed by: ARIA STEINBERG @ 03/14/2020 03:44 PMNormalThe [facility] CampusComment on above:Order Comment: RT THAPOC GLUCOSE LABon 59-23-3734Fosqray [Mass/Vol]222 mg/yANftt77-985Mnh [facility] CampusComment on above:Performed By: #### 24976 #### [facility] [address] [place] [address], USAGlucose [Mass/Vol]217 mg/vTDzfy69-299Eoi [facility] CampusComment on above:Performed By: #### 61991 ####[facility] [place] [address], USAGlucose [Mass/Vol] 141 mg/uISdaf20-190Ryy [facility] CampusComment on above: Performed By: #### 28050 #### [address] [place] [address], USAPORTABLE HIP RIGHT 1 OR 2 VWS WITH PELVISon 03-14-2020 PORTABLE HIP RIGHT 1 OR 2 VWS WITH PELVISUnGuernsey Memorial Hospital Department of Radiology [address] [place] [id number] Patient Name: LILIANA MICHAELS : 1965 Sex: M Age: Race: White Pt. Location: OUTP Patient Status: O Ordered Date: 03/14/2020 10:30:00 AM Completed Date: 03/14/2020 11:36 AM Requesting Provider: DAVID PRATT Attending Provider: JEY MUNGUIA Report Copy To: Signs & Symptoms: Post [...] air Electronically signed: Aria Steinberg. Transcribed by: [email or web address], User Resident: Electronically Signed by: ARIA STEINBERG @ 03/14/2020 03:46 PMNormalThe [facility] CampusComment on above:Order Comment: Hardware Evaluation, AP/LateralTYPE AND SCREENon 93-46-0823TUY INTERPRETATIONONoProvidence HospitalComment on above:Performed By: #### 91043 ####[facility] [facility].[address] RH INTERPRETATIONPositiveNoProvidence HospitalComment on above:Performed By: #### 76568 ####[facility] [facility].[address] Vital Signs Date TimeVital SignValuePerforming ZmxcsplcoDqjsivaw78-82-0405 08:41-0400Body .6 cmIshmael Simon MD Work Phone: [facility] CenterPskhvckhee16-26-8132 08:41-0400Body mass index (BMI) [Ratio]38.28 kg/m2Ishmael Simon MD Work Phone: [facility] CenterOjihqeangb74-14-5360 08:41-0400Body temperature 97.5 [degF]Ishmael Simon MD Work Phone: [facility] CenterItnhsoyfwv51-43-3717 08:41-0400Body xokzlb795.15 kgIshmael Simon MD Work Phone: [facility] CenterBmujmysmkx29-39-9111 08:41-0400Diastolic blood zdozcikm93 mm[Hg]Ishmael Simon MD Work Phone: noSt. Luke's HospitalIjwdsdlqmh93-42-3502 08:41-0400Heart rate89 /min Ishmael Simon MD Work Phone: [place] [address]Fkiuomwmrz18-24-7653 08:41-0400Respiratory rate18 /minIshmael Simon MD Work Phone: [place]Pat[place] [address]Dmbzynmcjq95-51-4299 08:41-2636AdZ0% (BldA) [Mass fraction]94 %Ishmael Simon MD Work Phone: [facility] CenterSdpcchxpza89-18-2061 08:41-0400Systolic blood mrkicjzd045 mm[Hg]Ishmael Simon MD Work Phone: [facility] CenterZeukcpajwh29-11-6091 09:04-0400Body wuewuz084.6 cmAregina Son MD Work Phone: [phone] [place], [place] [address]507-23-2025 09:04-0400 Body mass index (BMI) [Ratio]38.62 kg/x4XjaiffbAmador Son MD Work Phone: [phone])[address]07-23-2025 09:04-0400 Body ddejez910.06 kgAmador Son MD Work Phone: 1(851)[address]07-23-2025 09:04-0400 Diastolic blood jdwejihu83 mm[Hg]Amador Son MD Work Phone: [phone])[address]07-23-2025 09:04-0400 Heart rate65 /minAmador Son MD Work Phone: [phone] [place], [place] 38[address]507-23-2025 09:04-0400 Systolic blood sdairvfy236 mm[Hg]Amador Son MD Work Phone: 1(469)[address]06-17-2025 09:20-0400 Body becedk349.6 cmIshmael Simon MD Work Phone: [facility] CenterFyaplymtit31-64-9457 09:20-0400Body mass index (BMI) [Ratio]39.31 kg/m2Ishmael Simon MD Work Phone: [facility] CenterMzfywrsmgs78-70-1200 09:20-0400Body temperature 97.5 [degF]Ishmael Simon MD Work Phone: [facility] CenterMxfaorgmhu43-52-4669 09:20-0400Body fiojat957.87 kgIshmael Simon MD Work Phone: [facility] CenterXeqhyaxlym16-68-5381 09:20-0400Diastolic blood mm[Hg]Ishmael Simon MD Work Phone: noSt. Luke's HospitalHdabiefuny64-68-3115 09:20-0400Heart rate88 /min Ishmael Simon MD Work Phone: [facility] CenterEnbfleghdf06-79-9960 09:20-0400Respiratory rate18 /minIshmael Simon MD Work Phone: [facility] CenterUzkmyjpxqm26-55-6307 09:20-7667XnW3% (BldA) [Mass fraction]92 %Ishmael Simon MD Work Phone: [facility] CenterZvokntbufz27-97-6010 09:20-0400Systolic blood nxxraaih364 mm[Hg]Ishmael Simon MD Work Phone: [facility] CenterSpmxgmlire94-20-5839 10:20-0400Body elblbl195.6 cmIshmael Simon MD Work Phone: [facility] CenterMouqioshrp00-45-5617 10:20-0400Body mass index (BMI) [Ratio]38.11 kg/m2Ishmael Simon MD Work Phone: [facility] CenterPqeffemknz25-55-8413 10:20-0400Body temperature 97.5 [degF]Ishmael Simon MD Work Phone: [facility] [id number] 10:20-0400Body qzutyk121.7 kgIshmael Simon MD Work Phone: [facility] [id number] 10:20-0400Diastolic blood drjloyzt87 mm[Hg]Ishmael Simon MD Work Phone: [facility] [id number] 10:20-0400Heart rate82 /min Ishmael Simon MD Work Phone: [facility] CenterLcdbjccrdc16-19-0927 10:20-0400Respiratory rate20 /minIshmael Simon MD Work Phone: [facility] CenterUrylnrjfyu14-31-7068 10:20-5133IfT1% (BldA) [Mass fraction]93 %Ishmael Simon MD Work Phone: [facility] CenterHkgkklfgqm95-25-7058 10:20-0400Systolic blood elfbfrqd704 mm[Hg]Ishmael Simon MD Work Phone: [facility] CenterKlvbfcxgep41-45-2847 09:07-0500Body .6 cmValentino Ty MD Work Phone: 1(500)[address]02-05-2025 09:07-0500 Body mass index (BMI) [Ratio]36.39 kg/i3JlqpggiValentino Ty MD Work Phone: 1(088)[address]02-05-2025 09:07-0500 Body ozwhih14.16 kgValentino Ty MD Work Phone: 1(402)[address]02-05-2025 09:07-0500 Diastolic blood cxmdifcd89 mm[Hg]Valentino Ty MD Work Phone: 1(476)[address]02-05-2025 09:07-0500 Heart rate80 /minValentino Ty MD Work Phone: 1(977)[address]02-05-2025 09:07-0500 Systolic blood xqrikeeq328 mm[Hg]Valentino Ty MD Work Phone: 1(675)[address]01-29-2025 09:47-0500 Body ytvtfm685.6 cmIshmael Simon MD Work Phone: [facility] CenterQdftclbtpu00-57-2462 09:47-0500Body mass index (BMI) [Ratio]36.56 kg/m2Ishmael Simon MD Work Phone: [facility] CenterKfjnhqarfc22-00-9935 09:47-0500Body temperature 97.81 [degF]Ishmael Simon MD Work Phone: [facility] CenterPdmysnrgmx60-69-5504 09:47-0500Body yxlgmj33.62 kgIshmael Simon MD Work Phone: [facility] CenterBxxzrdgqnx46-67-2140 09:47-0500Diastolic blood bhmmnsow50 mm[Hg]Ishmael Simon MD Work Phone: [facility] CenterRvqmrpyjmq84-80-8029 09:47-0500Heart rate85 /min Ishmael Simon MD Work Phone: [facility] CenterOpybapcaxl97-72-4796 09:47-0500Respiratory rate22 /minIshmael Simon MD Work Phone: [facility] CenterHjdpkizrnm99-25-4866 09:47-4242CxL8% (BldA) [Mass fraction]92 %Ishmael Simon MD Work Phone: [facility] CenterDxlzvdeixj99-05-3925 09:47-0500Systolic blood dfnmowtj744 mm[Hg]Ishmael Simon MD Work Phone: 1(611)413-[address] [place], [place] [address]Tuiludcgba09-91-6055 08:30-0500Body enzcxu576.6 cmAregina Son MD Work Phone: 1(005)973-[address] [place], [place] 3830501-15-2025 08:30-0500 Body mass index (BMI) [Ratio]37.76 kg/c7RrdpxoqAmador Son MD Work Phone: 1(771)832-[address] [place], [place] 3830501-15-2025 08:30-0500 Body feydrn02.79 kgAmador Son MD Work Phone: 1(352)[address]01-15-2025 08:30-0500 Diastolic blood mm[Hg]Amador Son MD Work Phone: 1(029)811-[address] [place], [place] 3830501-15-2025 08:30-0500 Heart rate74 /minAmador Son MD Work Phone: 1(041)883-[address] [place], [place] 3830501-15-2025 08:30-0500 Systolic blood mm[Hg]Amador Son MD Work Phone: 1(390)[address]12-17-2024 11:05-0500 Body orqlbi780.6 cmIshmael Simon MD Work Phone: 1(774)18351778 [address] [place], [place] [address]Qyhnixmicw67-96-3820 11:05-0500Body mass index (BMI) [Ratio]37.76 kg/m2Ishmael Simon MD Work Phone: [facility] CenterLwsthavrew94-57-4568 11:05-0500Body temperature 97.81 [degF]Ishmael Simon MD Work Phone: 1(464)830-[address] [place], [place] [address]Xfrfakcwct69-27-9035 11:05-0500Body ftfnuu19.79 kgIshmael Simon MD Work Phone: 1(213)[facility] [place], [place] [address]Kosctjelzf23-66-7925 11:05-0500Diastolic blood yqiyqaqc21 mm[Hg]Ishmael Simon MD Work Phone: 1(484)[address] [place], [place] [address]64012-17-2024 11:05-0500Heart rate88 /min Ishmael Simon MD Work Phone: 1(462)[address] [place], [place] [address]Fnxtsxazqf41-70-0149 11:05-0500Respiratory rate18 /minIshmael Simon MD Work Phone: 1(356)[facility] [place], [place] [address]Ogocadicuz92-69-1063 11:05-9099VsP4% (BldA) [Mass fraction]95 %Ishmael Simon MD Work Phone: 1(344)564-[address] [place], [place] [address]Vxialmbped45-72-6086 11:05-0500Systolic blood cjsadypp600 mm[Hg]Ishmael Simon MD Work Phone: [facility] CenterBspkrwgdnt48-07-5624 13:14-0400Body rjdwuc520.6 cmIshmael Simon MD Work Phone: 1(034)8-[address] [place], [place] [address]Uuxqtetezc96-57-8057 13:14-0400Body mass index (BMI) [Ratio]37.25 kg/m2Ishmael Simon MD Work Phone: [facility] CenterXrzmwfiwxx88-15-8083 13:14-0400Body temperature 97.5 [degF]Ishmael Simon MD Work Phone: [facility] CenterLieopitlcf62-46-5303 13:14-0400Body yqbimt08.43 kgIshmael Simon MD Work Phone: 1(149)247-[address] [place], [place] [address]Nzrrhodznm22-09-5747 13:14-0400Diastolic blood zyeslihd20 mm[Hg]Ishmael Simon MD Work Phone: [facility] CenterNemqnfwfxs18-22-0604 13:14-0400Heart rate84 /min Ishmael Simon MD Work Phone: [facility] CenterTqurrrquzp87-04-7906 13:14-0400Respiratory rate20 /minIshmael Simon MD Work Phone: [facility] CenterUepkbcawvk28-78-2226 13:14-6720PlG4% (BldA) [Mass fraction]97 %Ishmael Simon MD Work Phone: [facility] CenterNsocowbqpo17-51-9667 13:14-0400Systolic blood zabqzjcl703 mm[Hg]Ishmael Simon MD Work Phone: [facility] CenterTxqgycwcsc56-90-9048 09:29-0400Body pmkivz533.6 cmIshmael Simon MD Work Phone: [facility] CenterYclzxqnifj71-65-8530 09:29-0400Body mass index (BMI) [Ratio]36.39 kg/m2Ishmael Simon MD Work Phone: [facility] CenterCovqaxfmsr02-62-3461 09:29-0400Body temperature 97.5 [degF]Ishmael Simon MD Work Phone: [facility] CenterGncrdoapho41-55-5321 09:29-0400Body qjluxi47.16 kgIshmael Simon MD Work Phone: [facility] CenterGthxviiynv01-15-1593 09:29-0400Diastolic blood zqfloisq25 mm[Hg]Ishmael Simon MD Work Phone: [facility] CenterSpolnymcnt56-18-2153 09:29-0400Heart rate91 /min Ishmael Simon MD Work Phone: [facility] CenterOllawaeyii81-34-0010 09:29-0400Respiratory rate18 /minIshmael Simon MD Work Phone: [facility] CenterGvnroocjbz69-45-6117 09:29-9494GsJ9% (BldA) [Mass fraction]97 %Ishmael Simon MD Work Phone: [facility] CenterSigooctzgc46-35-9055 09:29-0400Systolic blood kjymzkiu002 mm[Hg]Ishmael Simon MD Work Phone: [facility] CenterNuxcxohzvu46-56-1234 09:57-0400Body ulsael188.6 cmMiccasey Woodards DO Work Phone: [facility]07-31-2024 09:57-0400Body mass index (BMI) [Ratio]35.87 kg/d8Vzdzvqm Grillis DO Work Phone: [facility]07-31-2024 09:57-0400Body xuthfn77.8 kgMiccasey Mccormackillis DO Work Phone: [facility]07-31-2024 09:57-0400Diastolic blood qrtneogu95 mm[Hg]Roc Ramsey DO Work Phone: [facility]07-31-2024 09:57-0400Systolic blood hwiljcjo476 mm[Hg]Roc Ramsey DO Work Phone: [facility]07-03-2024 10:10-0400Body leyyup346.6 cmTria Wright IT ARCHITECT-NEGATIVE DEVELOPER Work Phone: [facility]07-03-2024 10:10-0400 Body mass index (BMI) [Ratio]35.27 kg/h3GkfscNaima Wright IT ARCHITECT-NEGATIVE DEVELOPER Work Phone: [facility]07-03-2024 10:10-0400 Body qmzeyy76.21 kgNaima Wright IT ARCHITECT-NEGATIVE DEVELOPER Work Phone: [facility]07-03-2024 10:10-0400 Diastolic blood eqdnrzet73 mm[Hg]Naima Wright IT ARCHITECT-NEGATIVE DEVELOPER Work Phone: [facility]07-03-2024 10:10-0400 Heart rate68 /minNaima Wright IT ARCHITECT-NEGATIVE DEVELOPER Work Phone: 1(437)[address] [place], [place] 227[address]07-03-2024 10:10-0400 Systolic blood dovvrycw42 mm[Hg]Naima Adriana IT ARCHITECT-NEGATIVE DEVELOPER Work Phone: 1(890)[address]04-03-2024 13:31-0400 Body .6 cmAregina Son MD Work Phone: 1(052)[address]04-03-2024 13:31-0400 Body mass index (BMI) [Ratio]34.67 kg/k8TilxeauAmador Son MD Work Phone: 1(247)[address]04-03-2024 13:31-0400 Body asoaiz70.63 kgAmador Son MD Work Phone: 1(896)[address]04-03-2024 13:31-0400 Diastolic blood zykhvczo52 mm[Hg]Amador Son MD Work Phone: 1(716)[address] [place], [place] 3830504-03-2024 13:31-0400 Heart rate69 /Delfina Son MD Work Phone: 1(933)[address]04-03-2024 13:31-0400 Systolic blood kygtkdvp969 mm[Hg]Amador Son MD Work Phone: 1(303)[address]03-29-2024 17:30-0400 Diastolic blood qqnxypct63 mm[Hg]Amador Son MD Work Phone: 1(191)[address] [place], [place] 3830503-29-2024 17:30-0400 Heart rate60 /Delfina Son MD Work Phone: 1(773)[address] [place], [place] 3830503-29-2024 17:30-0400 Respiratory rate16 /Delfina Son MD Work Phone: 1(415)[address]03-29-2024 17:30-0400 SaO2% (BldA) [Mass fraction]96 %Amador Son MD Work Phone: 1(009)[address] [place], [place] 3830503-29-2024 17:30-0400 Systolic blood xhcyrfwi882 mm[Hg]Amador Son MD Work Phone: 1(823)[address]03-29-2024 12:13-0400 Body xdspew103.6 Royer Son MD Work Phone: 1(126)[address]03-29-2024 12:13-0400 Body mass index (BMI) [Ratio]34.17 kg/x3UykhyxbAmador Son MD Work Phone: 1(486)[address]03-29-2024 12:13-0400 Body dljcoxvtbup33.5 [degF]Amador Son MD Work Phone: 1(002)[address]03-29-2024 12:13-0400 Body rtdniq60.3 kgAmador Son MD Work Phone: 1(450)[address]03-15-2024 14:38-0400 Body uafigm354.6 Royer Son MD Work Phone: 1(474)[address]03-15-2024 14:38-0400 Body mass index (BMI) [Ratio]34.33 kg/e4OfiiyqdAmador Son MD Work Phone: 1(804)[address]03-15-2024 14:38-0400 Body vphoej85.72 kgAmador Son MD Work Phone: 1(547)[address]03-15-2024 14:38-0400 Diastolic blood lfqazzxo69 mm[Hg]Amador Son MD Work Phone: 1(365)[address]03-15-2024 14:38-0400 Heart rate41 /minAmador Son MD Work Phone: 1(910)[address]03-15-2024 14:38-0400 Systolic blood acknihxv566 mm[Hg]Amador Son MD Work Phone: 1(818)[address]03-08-2023 10:57-0500 Body bmekbl526.56 cmHon[facility] Butch Carterr Work Phone: 1(257) 355-4113240-3364MI-OavmzWindom Area Hospitalk 600 DO Work Phone: 1(383) 544-752103-08-2023 10:57-0500Body mass index (BMI) [Ratio] 32.96 kg/m2Marc A Pandora Mediaerer Work Phone: mp498-9162PS-MlyneMaple Grove Hospitalwalk 600 DO Work Phone: 1(469)119-65548-828619-85643714-36-8553 10:57-0500Body surface area Derived from formula1.92 m2Marc A Moberg Researchr Work Phone: mp400-8024OK-OzqazMaple Grove Hospitalwalk 600 DO Work Phone: 1(385) 635-949103-08-2023 10:57-0500Body neqgzv78.09 kgMarc A Moberg Researchr Work Phone: mp513-7539LJ-PivjhCanby Medical Center 600 DO Work Phone: 1(474) 192-415403-08-2023 10:57-0500Diastolic blood agmbnhcw82 mm[Hg] Ishmael A Moberg Researchr Work Phone: mp045-4890UO-FcabcEssentia Health 600 DO Work Phone: 1(091)840-05328-866728-83270186-04-9837 10:57-0500Heart rate34 /minMarc A Moberg Researchr Work Phone: mp854-3804IL-ZzatcEssentia Health 600 DO Work Phone: 1(887) 367-826803-08-2023 10:57-0500Systolic blood zfdpuved431 mm[Hg] Ishmael A Moberg Researchr Work Phone: mp037-7974PC-MhfilEssentia Health 600 DO Work Phone: 1(304) 471-370809-22-2022 09:37-0400Body loojfn883.56 cmMarc A Naderer Work Phone: mp921-2328AK-LvkywWheaton Medical Centerwalk 600 DO Work Phone: 1(399) 709-346909-22-2022 09:37-0400Body mass index (BMI) [Ratio]30.9 kg/m2Marc A Pandora Mediaerer Work Phone: mp800-5448LS-Ubbrb [facility] 600 DO Work Phone: 1(987) 397-389309-22-2022 09:37-0400Body surface area Derived from formula1.87 m2Marc A Naderer Work Phone: mp862-6087RE-Xvmkk [facility] 600 DO Work Phone: 1(683) 166-645809-22-2022 09:37-0400Body lpcemp02.65 kgMarc A Naderer Work Phone: mp537-6019EJ-Rvmpr [facility] 600 DO Work Phone: 1(590) 385-871009-22-2022 09:37-0400Diastolic blood porrytmt38 mm[Hg] Ishmael Butch Naderer Work Phone: mp529-9366GP-Vsjtm [facility] 600 DO Work Phone: 1(951) 408-548609-22-2022 09:37-0400Heart rate41 /minMarc A Naderer Work Phone: mp342-6820XD-Smpjp [facility]Del[facility] 600 DO Work Phone: 1(666) 439-907809-22-2022 09:37-0400Systolic blood ketlsvlf207 mm[Hg] Ishmael Butch Naderer Work Phone: [phone]-Gcjju [facility] HeartPecon[facility] Centerk 600 DO Work Phone: Encounters Encounter DateEncounter TypeCare ProviderFacilityStart: 03-07-2025 End: 03-00-6764Blxeqpaxoh hospital visit by physicianEly Device [facility] CenterComment on above:Cardiac pacemaker in situStart: 03-07-2025 End: 93-11-5230cegavrsjzmVWTFDSUMount Carmel Health Systemtart: 02-11-2025 End: 58-52-6427yggyiyxtzmIOKBOHQUCleveland Clinic Euclid Hospitaltart: 02-11-2025 End: 58-47-5581cdmrnxekgrKNTBDVTDFisher-Titus Medical Centertart: 02-05-2025 End: 16-41-6623nmzcewvkmcBUFWKWKNCleveland Clinic Euclid Hospitaltart: 12-24-2024 End: 00-28-9066Ndmrfp Jarred Simon MD Work Phone: noms CWM FMStart: 12-24-2024 End: 12-39-5019Iyjyfdoniel Simon MD Work Phone: noms CWM FMStart: 12-24-2024 End: 38-60-2859Vdfjki outpatient visit 25 minutesIshmael Simon MD Work Phone: noms CWM FMComment on above:Type 2 diabetes mellitus with hyperglycemia, without long-term current use of insulin (HCC) (Primary Dx); Essential hypertension, benign ; Degeneration of intervertebral disc of lumbar region with discogenic back pain and lower extremity pain; Chronic diastolic heart failure (HCC)Start: 12-24-2024 End: 98-87-8187ssiynabobjUYHJ NADERERNot AvailableStart: 12-17-2024 End: 39-60-2152VdfteeNrfm Naderer MD Work Phone: noms CWM FMComment on above:Degeneration of lumbar intervertebral discStart: 11-28-2024 End: 30-56-5801Uqbhqa outpatient visit 25 minutesAmador Son MD Work Phone: [facility] CenterComment on above:Cardiac pacemaker in situ (Primary Dx); Chronotropic incompetence; Sick sinus syndrome (Multi); Essential hypertension, benign; Pacemaker; Sinus bradycardia; Former smoker; BMI 38.0-38.9,adultStart: 11-28-2024 End: 92-19-1831bwatcrguvzVIRHRSU N [facility] AmbulatoryStart: 11-28-2024 End: 80-41-1485Uxbuqnhzoi hospital visit by physicianEly [facility] 2 [facility] CenterComment on above:Cardiac pacemaker in situStart: 11-15-2024 End: 73-66-6415SlzfugTclg Naderer MD Work Phone: noms CWM FMComment on above:Degeneration of lumbar intervertebral discStart: 11-05-2024 End: 29-11-2734wrapfqymquPyofzkzJessica Reyes MDFacility:PM Darryl Start: 10-23-2024 End: 74-41-8155Qpprxl Jarred Simon MD Work Phone: NOMS CWM FMStart: 10-23-2024 End: 57-91-9181Fnvefx flowsDanny Simon MD Work Phone: NOEU CWM FMStart: 10-23-2024 End: 65-69-1583Pabypqnfl Result EncounterIshmael Simon MD Work Phone: NOTT External Department UnsolicitedStart: 10-23-2024 End: 68-80-3115Ybhecj outpatient visit 25 minutesIshmael Simon MD Work Phone: [facility] CWM FMComment on above:Type 2 diabetes mellitus with hyperglycemia, without long-term [...] index (BMI) of39.0 to 39.9 in adult ([facility]-HCC); Encounter for long-term (current) use of medications; Screening PSA (prostate specific antigen); Vitamin D insufficiency; DyslipidemiaStart: 10-23-2024 End: 14-38-4670qawengxvsqBINN NADERERNot AvailableStart: 10-18-2024 End: 67-72-6175CztetdDpgp Naderer MD Work Phone: [facility] CWM FMComment on above:Degeneration of lumbar intervertebral discStart: 09-19-2024 End: 30-99-0431LmxvzfPpbk Naderer MD Work Phone: [facility] CWM FMComment on above:Degeneration of lumbar intervertebral discStart: 08-29-2024 End: 62-23-4682KkqcaiLdhd Naderer MD Work Phone: [phone] CWM FMComment on above:Carpal tunnel syndrome, bilateral upper limbs; Carpal tunnel syndromeStart: 08-28-2024 End: 77-50-4709sqqhpnwfcnVVFSQUBMount Carmel Health Systemtart: 08-28-2024 End: 75-65-2102Evbrrdgcgm hospital visit by physicianEly Device RemoteProwers Medical CenterComment on above:Cardiac pacemaker in situStart: 08-22-2024 End: 60-53-9884RpkicmVxfy Naderer MD Work Phone: noms CWM FMComment on above:Degeneration of lumbar intervertebral discStart: 08-09-2024 End: 28-13-5143Rsalnydrf Result EncounterGeneric External Data ProviderNOMS External Department UnsolicitedStart: 08-09-2024 End: 96-94-8201Sdcugstge Result EncounterGeneric External Data ProviderNOMS External Department UnsolicitedStart: 08-06-2024 End: 98-95-1352qnstbowktlQtosgco Vytautas Giedraitis MDFacility:[facility] Start: 07-23-2024 End: 06-32-2602Fdzehs outpatient visit 25 minutesIshmael Simon MD Work Phone: noms CWM FMComment on above:Type 2 diabetes mellitus with hyperglycemia, without long-term current use of insulin (CMS/HCC) (Primary Dx); Essential hypertension, benign (CMS/HCC); Chronic diastolic heart failure (CMS/HCC); Primary osteoarthritis of right hip; Degeneration of intervertebral disc of lumbar region with discogenic back pain; Chronic obstructive pulmonary disease with acute exacerbation (CMS/HCC); Peripheral vascular disease, unspecified (CMS/HCC); Class 2 severe obesity due to excess calories with serious comorbidity and body mass index (BMI) of38.0 to 38.9 in adult (CMS/HCC); Type 2 diabetes mellitus with other specified complication (CMS/HCC); Male erectile dysfunction, unspecified; Type 2 diabetes mellitus with diabetic peripheral angiopathy without gangrene (CMS/HCC); Degeneration of lumbar intervertebral discStart: 07-23-2024 End: 86-23-9459apycbmbfuiUVUB NADERERNot AvailableStart: 06-26-2024 End: 99-81-3226HdwglfQznl Naderer MD Work Phone: noms CW FMComment on above:Degeneration of lumbar intervertebral discStart: 06-14-2024 End: 64-67-9669Cwvrlucvq Result EncounterGeneric External Data ProviderNOMS External Department UnsolicitedStart: 06-14-2024 End: 04-22-9546Ofeknccgk Result EncounterGeneric External Data ProviderNOMS External Department UnsolicitedStart: 06-13-2024 End: 78-04-7739Yjcccw outpatient visit 25 minutesValentino Ty MD Work Phone: [facility] CenterComment on above:Sick sinus syndrome (Multi) (Primary Dx); Chronotropic incompetence; Peripheral vascular disease, unspecified (CMS-HCC); Pacemaker; Essential hypertension, benign; Sinus bradycardia; Hyperlipidemia, unspecified hyperlipidemia type; Dyspnea on exertion; BMI 37.0-37.9, adult; Former smoker; Mild coronary artery diseaseStart: 06-13-2024 End: 20-47-3054hepaynwpbrHASLBLMAdventHealth for Children AmbulatoryStart: 06-06-2024 End: 48-02-2189Pdqcgkoniel Simon MD Work Phone: noms CW FMStart: 06-06-2024 End: 57-98-1537Phftiwoniel Simon MD Work Phone: noms CW FMStart: 06-06-2024 End: 95-46-3450Oywfze outpatient visit 15 minutesIshmael Simon MD Work Phone: noms CW FMComment on above:Chronic obstructive pulmonary disease with acute exacerbation (CMS/HCC) (Primary Dx); Chronic hypoxic respiratory failure (CMS/HCC); Class 2 severe obesity due to excess calories with serious comorbidity and body mass index (BMI) of36.0 to 36.9 in adult (CMS/HCC); Essential hypertension, benign (CMS/HCC)Start: 06-06-2024 End: 34-57-8710haytmjgjrhRBKX NADERERNot AvailableStart: 05-29-2024 End: 39-20-1485MhhhdyOirb Naderer MD Work Phone: [facility] CWM FMComment on above:Degeneration of lumbar intervertebral discStart: 05-28-2024 End: 60-18-2839WooqyjQcay Howard MANOMS CWM FMComment on above:Degeneration of lumbar intervertebral discStart: 05-27-2024 End: 78-02-9984Dppjsznvm Result EncounterGeneric External Data ProviderNOMS External Department UnsolicitedStart: 05-27-2024 End: 09-54-0378Spyfjwqhg Result EncounterGeneric External Data ProviderNOMS External Department UnsolicitedStart: 05-23-2024 End: 62-64-7981Zigrbv outpatient visit 25 minutesAmador Son MD Work Phone: [facility] CenterComment on above:Cardiac pacemaker in situ (Primary Dx); Sick sinus syndrome (Multi); MRI safe cardiac pacemaker in situ; Abnormal EKG; Chronotropic incompetence; Sinoatrial node dysfunction (Multi); Sinus bradycardia; Current smoker; BMI 37.0-37.9, adultStart: 05-23-2024 End: 65-11-4991Cyxuflhovw hospital visit by physicianEly [facility] [address] [place], [place] [address]Comment on above:Sinus bradycardia; Sick sinus syndrome (Multi); Chronotropic incompetence; MRI safe cardiac pacemaker in situStart: 05-23-2024 End: 36-69-5400tytwoamvqxRVOTBNY N DIAZAshtabula County Medical Center AmbulatoryStart: 04-27-2024 End: 64-75-5041LqtrgtOckd Naderer MD Work Phone: [facility] CWM FMComment on above:Degeneration of lumbar intervertebral discStart: 04-24-2024 End: 78-50-8381Lnbutconiel Simon MD Work Phone: [facility] CWM FMStart: 04-24-2024 End: 71-93-9564Dyptrioniel Simon MD Work Phone: NSUZ CWM FMStart: 04-24-2024 End: 47-14-7827Lslqpkgbu Result EncounterIshmael Simon MD Work Phone: noms External Department UnsolicitedStart: 04-24-2024 End: 65-57-6289Oowokrc encounter procedureIshmael Simon MD Work Phone: [facility] Work Phone: Start: 04-24-2024 End: 01-56-4902Pzxnam follow up visit related to original Kesha Simon MD Work Phone: noms CWM FMComment on above:Medicare annual wellness visit, subsequent (Primary Dx); Type 2 diabetes mellitus with hyperglycemia, without long-term current use of insulin (CMS/HCC); Essential hypertension, benign (CMS/HCC); Class 2 severe obesity due to excess calories with serious comorbidity and body mass index (BMI) of37.0 to 37.9 in adult (CMS/HCC)Start: 04-24-2024 End: 91-83-5173mgfpaogihrTZAJ NADERERNot AvailableStart: 04-16-2024 End: 55-45-8861crmwmvrldjVfqtrfhJessica Reyes MDFacility:[facility] Start: 03-30-2024 End: 43-47-2616OxvjwqBdgl Naderer MD Work Phone: noms CWM FMComment on above:Degeneration of lumbar intervertebral discStart: 03-27-2024 End: 99-77-9208Pfcldlj encounter procedureIshmael Simon MD Work Phone: [facility] [place] Work Phone: Start: 03-27-2024 End: 30-74-6461lubuyjthlkNkhe Naderer MD Work Phone: [facility] Work Phone: Start: 03-16-2024 End: 06-84-5680mskllhmdabWvev E GantzFacility:[facility] Start: 84-43-3909Umo-patient / Non-visitFormerly [facility] ClinicStart: 03-01-2024 End: 72-40-0251TtrecdUsst Naderer MD Work Phone: [facility] CWM FMComment on above:Degeneration of lumbar intervertebral discStart: 02-14-2024 End: 68-14-3960Unubmbqoni hospital visit by physicianEly Device [facility] CenterComment on above:Cardiac pacemaker in situ; Sinoatrial node dysfunction (Multi)Start: 02-06-2024 End: 26-63-6397Zxhmpx Jarred Simon MD Work Phone: NOTI CWM FMStart: 02-06-2024 End: 53-71-2795Nqehaf Jarred Simon MD Work Phone: noms CWM FMStart: 02-06-2024 End: 10-54-6765Ycqsiobfp Result Austin Simon MD Work Phone: noms External Department UnsolicitedStart: 02-06-2024 End: 64-01-2257xzvjpfmnbpDLUA NADERERNot AvailableStart: 02-06-2024 End: 31-77-8582Ubujjz outpatient visit 15 minutesIshmael Simon MD Work Phone: noms CWM FMComment on above:Dysuria (Primary Dx); Acute prostatitis; PyuriaStart: 02-02-2024 End: 93-98-8900ZoaqpzFxqw Naderer MD Work Phone: [facility] CWM FMComment on above:Other intervertebral disc degeneration, lumbar region; Degeneration of lumbar or lumbosacral intervertebral discStart: 01-27-2024 End: 90-21-9702NbucvsElry Naderer MD Work Phone: NOHQ CWM FMComment on above:Degeneration of lumbar intervertebral discStart: 01-25-2024 End: 20-04-6756Bqqkhfezja hospital visit by physicianEly Device [facility] CenterComment on above:Cardiac pacemaker in situ; Sinoatrial node dysfunction (Multi)Start: 01-13-2024 End: 44-07-7431Pcxhmboniel Simon MD Work Phone: noms CWM FMStart: 01-13-2024 End: 79-47-2024Crrppooniel Simon MD Work Phone: noms CWM FMStart: 01-13-2024 End: 41-52-6622Ragods outpatient visit 25 minutesIshmael Simon MD Work Phone: noms CWM FMComment on above:Type 2 diabetes mellitus with hyperglycemia, without long-term current use of insulin (CMS/HCC) (Primary Dx); Essential hypertension, benign (CMS/HCC); Chronic diastolic heart failure (CMS/HCC); Chronic obstructive pulmonary disease, unspecified COPD type (CMS/[facility]); DDD (degenerative disc disease), lumbar; Primary osteoarthritis of right hip; Body mass index (BMI) 35.0-35.9, adultStart: 01-13-2024 End: 46-26-7688zotgbrihtlQDER NADERERNot AvailableStart: 12-30-2023 End: 37-40-2016SsmeasYghq Naderer MD Work Phone: [facility] FMComment on above:Degeneration of lumbar intervertebral discStart: 12-26-2023 End: 57-95-1711Qnsoxtkhg encounterSheri Chau [facility] SurgeryStart: 12-14-2023 End: 95-56-3773Jcexrl Fabián Chau [facility] Comment on above:Claudication ([facility]) (Primary Dx)Start: 12-07-2023 End: 69-27-5150Pnjssm outpatient visit 25 minutesRoc Ramsey DO Work Phone: [facility] General SurgeryComment on above: Right leg pain (Primary Dx); Tobacco abuse; Class 3 severe obesity due to excess calories with serious comorbidity in adult, unspecified BMI (CMS-HCC); Left inguinal hernia; Claudication (CMS-HCC)Start: 11-09-2023 End: 59-15-8251Wdbzssxbx Result EncounterGeneric External Data ProviderNOMS External Department UnsolicitedStart: 11-09-2023 End: 47-97-9860Ajlxuerey Result EncounterGeneric External Data ProviderNOMS External Department UnsolicitedStart: 11-09-2023 End: 00-79-6486Cabzvw outpatient visit 40 minutesNaima MURILLO Work Phone: [facility] CenterComment on above:MRI safe cardiac pacemaker in situ (Primary Dx); Sinus bradycardia; Sick sinus syndrome (Multi); Chronotropic incompetence; Chronic diastolic heart failure (Multi); Essential hypertension, benign; Peripheral vascular disease, unspecified [place] Chronic obstructive pulmonary disease, unspecified COPD type ([facility]); Dyspnea on exertion; Obstructive sleep apnea (adult) (pediatric); Current smokerStart: 11-09-2023 End: 95-94-5707Nlihsmnove hospital visit by [facility] [address] [place], [place] [address]Comment on above:PacemakerStart: 10-11-2023 End: 13-49-4615Rzjkmljai Result EncounterIshmael Simon MD Work Phone: noms External Department UnsolicitedStart: 10-11-2023 End: 31-97-6278Yojvrubli Result EncounterIshmael Simon MD Work Phone: noms External Department UnsolicitedStart: 09-26-2023 End: 93-47-0886Moowimkytv hospital visit by Andre[facility] Device [facility] CenterComment on above:Cardiac pacemaker in situ; Sinoatrial node dysfunction (Multi)Start: 08-10-2023 End: 27-18-5379Cmdadyrvrl hospital visit by Andrei Ultrasound [address] [place], [place] [address]Comment on above:Localized swelling on left hand; S/P placement of cardiac pacemakerStart: 08-10-2023 End: 45-63-5108Ybdaajrym Result EncounterGeneric External Data ProviderNOMS External Department UnsolicitedStart: 08-10-2023 End: 84-29-4438Puztclaka Result EncounterGeneric External Data ProviderNOCA External Department UnsolicitedStart: 08-10-2023 End: 86-74-1287Dnsxsr outpatient visit 25 minutesAmador Son MD Work Phone: uh [facility] HospitalComment on above:Chronotropic incompetence (Primary Dx); Abnormal stress test; Sinus bradycardia; Sick sinus syndrome (CMS/HCC); Essential hypertension, benign; BMI 34.0-34.9,adult; Current smokerStart: 08-05-2023 End: 97-14-5074Etoepwpunz hospital visit by physicianAmador Son MD Work Phone: uh [facility] HospitalComment on above:Sinus bradycardia (Primary Dx); Chronotropic incompetence; Sick sinus syndrome (CMS/HCC); Other fatigue; Abnormal stress test; Dyspnea; PacemakerStart: 07-22-2023 End: 52-89-3605Bwjeuu outpatient new 60 minutesAmador Son MD Work Phone: uh [facility] HospitalComment on above:Chronotropic incompetence (Primary Dx); Sinus bradycardia; Establishing care with new doctor, encounter for; BMI 34.0-34.9,adult; Sick sinus syndrome (CMS/HCC); Simple chronic bronchitis (CMS/HCC); Current smoker; Other fatigue; Preoperative cardiovascular examinationStart: 07-22-2023 End: 48-31-4701Gcizqhk encounter statusAmador Son MD Work Phone: [facility] Work Phone: Start: 33-64-5600crgbcnikuwVQWWEXFDOBGW LAKSHMIPATHY . Facility:N1Agheb: 09-14-2022 End: 22-24-4484dvgqilmlxlNZSXHLWVOVRA LAKSHMIPATHY .Facility:J0Xacwx: 08-31-2022 End: 97-25-2081sxpwangipnYOLNJNOQZWLU LAKSHMIPATHY .Facility:V8Qphnn: 08-04-2022 End: 08-73-3272dahzjilzwrCBQXNIJXIBWF LAKSHMIPATHY .Facility:Q1Daivk: 07-23-2022 End: 97-67-8738jpsabuyquhNKNQRWNAQTHP LAKSHMIPATHY .Facility:R4Yejtm: 07-20-2022 End: 88-84-7493pxvnddnnxwVCVKDZXULBHD LAKSHMIPATHY .Facility:W2Cozzs: 07-15-2022 End: 18-88-9186yuzwqwpvolFPREWV KHANH .Facility:B1Aqzsp: 42-25-3649Hgowkb outpatient visit 15 minutesMarc A Naderer Work Phone: [phone]-[facility]hx[facility] 600 DO Work Phone: Start: 84-90-4586fvbcolxlquPk. Valentino Ty Facility:[address]Cengd: 53-30-4996prpcfxlkaoTO RICKY IBARRA .Facility:W0Rlurs: 06-11-2022 End: 78-85-1232gtojriqdzvMQ ISHMAEL Rae NADERERFacility:L5Olcci: 05-07-2022 End: 53-49-8729nuowblwgcqQE ISHMAEL Rae NADERERFacility:J9Ygwga: 05-07-2022 End: 04-44-6094hvkbixuvchAM ISHMAEL Rae NADERERFacility:K0Dntjv: 04-12-2022 End: 43-50-0395qkxsuewkdkPW ISHMAEL Rae NADERERFacility:J2Pfdgf: 84-85-6709Vhonm UpdateMarc A Naderer Work Phone: [phone]-[facility]iMay[facility] 250 DO Work Phone: Start: 16-08-1096ylredhhhtlWa. Valentino Ty Facility:[id number]: 86-69-5336qtxehkzydqSv. Ishmael Vallejo NadererFacility: Start: 87-33-1784Oemycx consultation new/estab patient 60 minMarc A Naderer Work Phone: [phone]-UwihpCanby [facility] Center 600 DO Work Phone: Start: 01-14-2022 End: 06-67-4307eaufsdoqytIAHM SOLIS .Facility:S9Maeqy: 01-01-2022 End: 26-29-9442cxmplovldbXF ISHMAEL Rae NADERERFacility:R6Uyytl: 12-15-2021 End: 33-16-9092nqtssqfvwpRS RICKYGRICELDA IBARRA .Facility:L3Fphxi: 87-68-4729Eaypsizfh for preprocedural laboratory examinationDR RICKY IBARRA .[facility] Start: 12-12-2021 End: 72-84-1932rsjuyvrpdoDG ISHMAEL Rae NADERERFacility:R0Aojbh: 12-12-2021 End: 31-77-3065Qzzocnhfd for preprocedural laboratory examinationDR ISHMAEL Rae NADERERFacility:V6Zodsq: 12-08-2021 End: 92-89-0787tlxhxvqwcjLO RICKY IBARRA .Facility:R5Scnox: 12-04-2021 End: 01-84-3013iaioteadiiQW ISHMAEL Rae NADDIEGORFacility:F8Mzzvl: 11-19-2021 End: 42-75-7440jtcualjbbpMTID COLMENARES .Facility:L4Wjrzn: 11-03-2021 End: 99-83-5081djikkhdtpuOS RICKY IBARRA .Facility:F9Egnjt: 10-22-2021 End: 50-89-4925mazeolipmqYZ RICKY IBARRA .Facility:P3Ahaqi: 10-13-2021 End: 53-78-9181fapkxctgvoAU RICKY S IBARRA .Facility:K8Iqyql: 10-01-2021 End: 97-43-7096cnegyikhlaMHHE COLMENARES .Facility:R3Gfsrr: 10-01-2021 End: 59-48-6377yxgcewlptdAVPW SOLIS .Facility:M7Dzyoq: 10-03-2020 End: 15-71-1107ijdhwjduquQYLO BOSWELLFacility:[facility]ENTERtart: 03-26-2020 End: 40-04-6340iopkxscrbjBVHAT R HANNAFacility:[facility]ENTERtart: 03-14-2020 End: 02-78-7407ykyvtdvxlhPCMDW R HANNAFacility:[facility] Procedures DateProcedureProcedure DetailPerforming ClinicianStart: 48-99-7850Zev interrog pm/ldls pm/ids <90 d tech reviewAltaz Son MD Work Phone: Start: 32-05-7206Stg routine ecg w/least 12 lds w/i&r Amador N Son MD Work Phone: Start: 75-09-9373Zspvwqy eval implantable in persn dual ld Medina Son MD Work Phone: Start: 40-37-5695GYV CBC WITH AUTO DIFFMarpraveena Simon MD Work Phone: Start: 33-68-5998Wvf interrog pm/ldls pm/ids <90 d tech reviewAltaz Son MD Work Phone: Start: 15-89-3680HC LUNG SCREENING LOW DOSEGeneric External Data ProviderStart: 20-98-2090VCV BASIC METABOLIC PANELGeneric External Data ProviderStart: 84-55-5753WMX LIPID PROFILE (FASTING)Generic External Data ProviderStart: 00-87-2745VQF ALTGeneric External Data ProviderStart: 06-14-2024 CCF ASTGeneric External Data ProviderStart: 43-59-0341Ghjoiyblpb cells LM Ql (Urine sed)Generic External Data ProviderStart: 86-09-0408RWOI STAIN EVALUATION Generic External Data ProviderStart: 73-75-3912Xxrdqeagjg [#/volume] in Blood Generic External Data ProviderStart: 34-43-5420ONEUW RESPIRATORY CULTUREGeneric External Data ProviderStart: 44-00-3268RTJBXA 1Generic External Data Provider Start: 17-03-1811RZTRKY 2Generic External Data ProviderStart: 97-19-0969IJFALF 3 Generic External Data ProviderStart: 03-37-4295LMFXND 4Generic External Data ProviderStart: 57-00-3951Vma routine ecg w/least 12 lds w/i&Ana María Son MD Work Phone: Start: 67-46-2818Ievgmhy eval implantable in persn dual ld Lester Wright IT ARCHITECT-NEGATIVE DEVELOPER Work Phone: Start: 84-54-8736QCJ HEMOGLOBIN R7GWpzfIshmael Simon MD Work Phone: Start: 26-56-5696RL lumbar spine wo conIshmael Simon MD Work Phone: Start: 93-54-9304VX pre/post mri xrayIshmael Simon MD Work Phone: Start: 28-88-3235Hxz interrog pm/ldls pm/ids <90 d tech reviewAmador Son MD Work Phone: Start: 49-05-3025VSE UA (CLEAN/CATCH) MICROSCOPIC IF INDICATEIshmael Simon MD Work Phone: Start: 52-61-5021Nfu routine ecg w/least 12 lds w/i&r Niamadaniel Wright IT ARCHITECTGoodie Goodie AppEMERSON HOSPITAL Work Phone: Start: 23-11-4816HZ CHEST 2 VIEWS PA/LATGeneric External Data ProviderStart: 42-05-2147Nmyxglj eval implantable in persn dual ld paceLawrence Dodge Quoc [facility] SURPRISEGoodie Goodie AppEMERSON [facility]PITAL Work Phone: Start: 47-15-9563Pltge shoulder complete minimum 2 viewsIshmael Simon MD Work Phone: Start: 28-00-5440KUMBFJC DEVICE CHECK - REMOTEAltaz Son MD Work Phone: Start: 08-10-2023 End: 99-13-5984Ieb-scan xtr veins unilateral/limited studyTradaniel Wright IT ARCHITECT-[facility] Work Phone: Start: 17-39-5456Cdqywhxmim exam chest single viewAna M Echo Quoc IT ARCHITECT-[facility] Work Phone: Start: 15-07-3320Ggm routine ecg w/least 12 lds trcg only w/o i&Lawrence Echo IT ARCHITECT-[facility] Work Phone: Start: 54-52-1766Hqcakkyjkpuxtggfp studyAmador Son MD Work Phone: Start: 56-77-2722Yfnx tthrc r-t 2d w/wom-mode compl spec&colr Nadege Angel [facility] SURPRISEGoodie Goodie [facility]EM[facility] Work Phone: Start: 86-43-9891Cri routine ecg w/least 12 lds trcg only w/o i&Lawrence Echo Stanley IT ARCHITECT-NEGATIVE DEVELOPER Work Phone: Start: 83-33-7416Dbydv metabolic panel calcium total Ana M Echo Barrettcrys IT ARCHITECT-NEGATIVE DEVELOPER Work Phone: Start: 52-58-6650Heh routine ecg w/least 12 lds w/i&r Amador Son MD Work Phone: Start: 79-90-8601OBM screeningDR ISHMAEL NADERERComment on above:Performed By: #### VITAD, PSASC #### [facility] [address] [place] [address] Dr. Britt MendozaStart: 58-23-9038VQJKCV HIP ARTHROPLASTYSIMONE BOSWELLStart: 27-89-1180VKXJQ HIP ARTHROPLASTYMAGED R HANNAStart: 93-81-0057Zkyhxebx screen SIMONE Leal on above:Performed By: #### [id number] ####[facility] [place] [address], USAStart: 08-24-[address] Work Phone: ColonoscopyMarc A Naderer Work Phone: Excision of cystMarc A Naderer Work Phone: Hernia repairMarc A Naderer Work Phone: Operation on urinary systemMarc A Naderer Work Phone: Surgical repair of upper extremityMarc A Naderer Work Phone: Total replacement of hipMarc A Naderer Work Phone: Plan of Treatment DateCare ActivityDetailAuthorStart: 54-14-5183Sejqbhpsv for malignant neoplasm of colonNOMS HealthcareStart: 44-74-0158Cwhcqpjx screeningDiabetes: Retinopathy ScreeningNOMS HealthcareStart: 38-91-0098Pevdu screening for proteinDiabetes: Urine Protein ScreeningNOCA HealthcareStart: 06-04-2025 End: 94-81-6182Psepnmu encounter procedureEvans Army Community Hospitaltart: 05-15-2025 End: 93-12-4251Pfvxitq encounter /07/2026 8:40 AM EST Office Visit [address] [place] [address] Valentino Ty MD [address] [facility] [address], [address] [place] [address] [facility] CenterStart: 04-26-2025 End: 01-74-0997Jmudzlg encounter wkijmhvxn04/19/2025 9:30 AM EST Office Visit [facility] [address] [place] [address] Ishmael Simon MD [address] [place] [address] [facility] C[facility] FMStart: 12-17-2025Medicare Annual Wellness (AWV)Medicare Annual Wellness (AWV)NOM HealthcareStart: 36-86-2250Utoahefbvg A1c measurement Diabetes: Hemoglobin V7MABKN HealthcareStart: 76-24-3535DIBHH-19 Vaccine ( season)COVID-19 Vaccine ( season)[facility] CenterStnew[facility] news: 49-89-6262Cfmgsovcm vaccinationNOCA HealthcareStart: 12-24-2024 End: 11-94-7472Eikypwk encounter procedureNOCA CWM FMComment on above:Arrived Start: 91-02-8104Jrwedshbh vaccinationInfluenza Vaccine (#1)[facility]: 35-65-0708Gkrwl BMI ScreeningAdult BMI ScreeningOhioHealth O'Bleness Hospital SystemStart: 93-84-2151Yaucfjp ScreeningTobacco ScreeningOhioHealth O'Bleness Hospital SystemStart: 11-28-2024 End: 87-38-1320Sfebskv encounter procedureJefferson County Memorial Hospital and Geriatric Centertart: 11-21-2024 End: 80-09-4411Eiadlfk encounter /16/2025 8:00 AM EDT Appointment [facility] [address] [place] [phone] [facility] Centertart: 10-23-2024 End: 350069-vmroxcxlredilb D3 [Mass/volume] in Serum or PlasmaVitamin D 25 hydroxy Lab Routine Vitamin D insufficiency Expected: 10/23/2024 (Approximate), Expires: 10/23/2025[facility] Work Phone: Comment on above:Expected: 10/23/2024 (Approximate), Expires: 10/23/2025Start: 10-23-2024 End: 03-98-3082Xzksx metabolic 1998 panel - Serum or PlasmaBasic metabolic panel Lab Routine Essential hypertension, benign Expected: 10/23/2024 (Approximate), Expires: 10/23/2025[facility] HealthcareComment on above:Expected: 10/23/2024 (Approximate), Expires: 10/23/2025Start: 10-23-2024 End: 14-06-4304YQH W Auto Differential panel - BloodCBC and differential Lab Routine Encounter for long-term (current) use of medications Expected: 10/07 (Approximate), Expires: 10/23/2025[facility] HealthcareComment on above: Expected: 10/23/2024 (Approximate), Expires: 10/23/2025Start: 10-23-2024 Hemoglobin A1c measurementDiabetes: Hemoglobin B6YJIDFCameron Regional Medical CenterStart: 10-23-2024 End: 98-91-5031Xbrijkyovf A1c/Hemoglobin.total in BloodHemoglobin A1c Lab Routine Type 2 diabetes mellitus with hyperglycemia, without long-term current use of insulin (HCC) Expected: 10/23/2024 (Approximate), Expires: 10/23/2025[facility] HealthcareComment on above:Expected: 10/23/2024 (Approximate), Expires: 10/23/2025Start: 10-23-2024 End: 40-50-4094Uhfwbxo function 2000 panel - Serum or PlasmaHepatic function panel Lab Routine Encounter for long-term (current) use of medications Expected: 10/23/2024 (Approximate), Expires: 10/23/2025NOCA HealthcareComment on above: Expected: 10/23/2024 (Approximate), Expires: 10/23/2025Start: 10-23-2024 End: 49-08-6317Pqipy 1996 panel - Serum or PlasmaLipid panel Lab Routine Dyslipidemia Expected: 10/23/2024 (Approximate), Expires: 10/23/2025NOCA HealthcareComment on above:Expected: 10/23/2024 (Approximate), Expires: 10/23/2025Start: 10-23-2024 End: 14-91-4854Ddlsjgki specific Ag [Mass/volume] in Serum or PlasmaPSA Lab Routine Screening PSA (prostate specific antigen) Expected: 10/23/2024 (Approximate), Expires: 10/23/2025[facility] HealthcareComment on above:Expected: 10/23/2024 (Approximate), Expires: 10/23/2025Start: 10-23-2024 End: 11-63-4648Sjbnxtsxdbd [Units/volume] in Serum or PlasmaTSH Lab Routine Class 2 severe obesity due to excess calories with serious comorbidity and body mass index (BMI) of 39.0 to 39.9 in adult ([facility]) Expected: 10/23/2024 (Approximate), Expires: 10/23/2025[facility] HealthcareComment on above:Expected: 10/23/2024 (Approximate), Expires: 10/23/2025Start: 10-23-2024 End: 34-74-6175Uknwofy encounter procedureNOMS CWM FMComment on above:Arrived Start: 65-98-8896Jnblgtuych measurementCreatinine LevelUnOhioHealth Doctors Hospital: 22-87-4852XszvhdilmvoplpgkYcehaghcyxvkwwVjkbbusmpi Hospitals of ClevelandStart: 22-11-7273Xqbqniwxa measurementPotassium LevelUnOhioHealth Doctors Hospital: 07-23-2024 End: 14-03-0006Onytgkseitbr/Creatinine panel in random UrineMicroalbumin / creatinine, urine ratio Lab Routine Type 2 diabetes mellitus with hyperglycemia, without long-term current use of insulin ([facility]) Expected: 07/23/2024 (Approximate), Expires: 07/23/2025[facility] Work Phone: Comment on above:Expected: 07/23/2024 (Approximate), Expires: 07/23/2025Start: 07-23-2024 End: 08-26-4470Zeukthn encounter odknvfeov81/17/2025 10:15 AM EDT Office Visit [facility] [address] [place] [address] Ishmael Simon MD [address] [place] [phone] [facility] MIAH FMStart: 06-13-2024 End: 73-55-6211Lbdfahj aminotransferase [Enzymatic activity/volume] in Serum or Plasma by With P-5'-PAlanine Aminotransferase Lab Routine Hyperlipidemia, unspecified hyperlipidemia type Expected: 06/13/2024 (Approximate), Expires: 06/13/2025[facility] Service Area Work Phone: Comment on above:Expected: 06/13/2024 (Approximate), Expires: 06/13/2025Start: 06-13-2024 End: 92-59-6295Cxnqyuise aminotransferase [Enzymatic activity/volume] in Serum or Plasma by With P-5'-PAspartate Aminotransferase Lab Routine Hyperlipidemia, unspecified hyperlipidemia type Expected: 06/13/2024 (Approximate), Expires: 06/13/2025[facility] Work Phone: Comment on above:Expected: 06/13/2024 (Approximate), Expires: 06/13/2025Start: 06-13-2024 End: 83-04-5719Gdggw metabolic 2000 panel - Serum or PlasmaBasic Metabolic Panel Lab Routine Essential hypertension, benign Expected: 06/13/2024 (Approximate), Expires: 06/13/2025[facility] Work Phone: Comment on above:Expected: 06/13/2024 (Approximate), Expires: 06/13/2025Start: 06-13-2024 End: 71-28-7017Iqked 1996 panel - Serum or PlasmaLipid Panel Lab Routine Hyperlipidemia, unspecified hyperlipidemia type Expected: 06/13/2024 (Approx imate), Expires: 06/13/2025[facility] Work Phone: Comment on above:Expected: 06/13/2024 (Approximate), Expires: 06/13/2025Start: 06-13-2024 End: 25-02-5685Sxaqghk encounter iwmyqyrks05/05/2025 9:10 AM EST Office Visit [address] [place] [address] Valentino Ty MD [address] [facility] [address], [address] [place] [address] [facility] CenterStart: 06-06-2024 End: 66-76-9545Hsgqoki encounter oyorkebmg79/29/2025 9:45 AM EST Office Visit [facility] [address] [place] [address] Ishmael Simon MD [address] [place] [address] ArrivedNOTULSA SPINE & [facility] FMComment on above:ArrivedStart: 06-04-2024 End: 57-30-8333Ntmmvas encounter zguzomvma60/27/2025 9:30 AM EST [facility] [address] [place] [address] Ishmael Simon MD [address] [place] [address] [facility] CW FMStart: 01-48-5438Uoayk screening for proteinDiabetes: Urine Protein ScreeningNOCA HealthcareStart: 05-23-2024 End: 34-15-3063Igelnmf encounter procedureEvans Army Community Hospitaltart: 21-32-7869Axgrzugm screeningDiabetes: Retinopathy ScreeningNOMS HealthcareStart: 05-11-2024 End: 12-32-0826Ivxxilb Device Check - In ClinicCardiac Device Check - In Clinic Implantable Cardiac Device Routine Sinus bradycardia Sick sinus syndrome (Multi) Chronotropic incompetence MRI safe cardiac pacemaker in situ Expected: 05/11/2024 (Approximate), Expires: 11/08/2024[facility] Service Area Work Phone: Comment on above:Expected: 05/11/2024 (Approximate), Expires: 11/08/2024Start: 04-24-2024 End: 23-02-4078Tjpguxepca A1c/Hemoglobin.total in BloodHemoglobin A1c Lab Routine Type 2 diabetes mellitus with hyperglycemia, without long-term current use of insulin ([facility]) Expected: 04/24/2024 (Approximate), Expires: 04/24/2025 [facility] Healthcare Work Phone: Comment on above:Expected: 04/24/2024 (Approximate), Expires: 04/24/2025Start: 04-24-2024 End: 18-87-9992Xutjobz encounter procedureNOTULSA SPINE & [facility] FMComment on above:Arrived Start: 90-97-7553Ivddbextgy A1c measurementDiabetes: Hemoglobin E3YTFLBCameron Regional Medical CenterStart: 20-52-4626IAI High Risk: (Elderly (60+) or Population) (1 - Risk 60-74 years 1-dose series)RSV High Risk: (Elderly (60+) or Population) (1 - Risk 60-74 years 1-dose series)[facility] CenterStart: 02-06-2024 End: 25-00-9696Putujuls identified in Urine by CultureUrine culture (clean catch) Microbiology Routine Dysuria Expected: 02/06/2024 (Approximate), Expires: 02/05/2025[facility] Healthcare Work Phone: Comment on above:Expected: 02/06/2024 (Approximate), Expires: 02/05/2025Start: 02-06-2024 End: 80-40-0010Lpjqssizp trachomatis and Neisseria gonorrhoeae DNA [Identifier] in Unspecified specimen by KATT with probe detectionChlamydia DNA probe, direct Microbiology Routine Acute prostatitis Pyuria Expected: 02/06/2024 (Appr oximate), Expires: 02/05/2025NOMS HealthcareComment on above:Expected: 02/06/2024 (Approximate), Expires: 02/05/2025Start: 02-06-2024 End: 19-45-6939Aedwvjsbz gonorrhoeae DNA assayGonococcus DNA, PCR Microbiology Routine Dysuria Acute prostatitis Pyuria Expected: 02/06/2024 (Approximate), Expires: 02/05/2025NOMS HealthcareComment on above:Expected: 02/06/2024 (Approximate), Expires: 02/05/2025Start: 02-06-2024 End: 26-98-0278Clrurxcwco complete panel - UrineUrinalysis with reflex microscopic (clean catch) Lab Routine Dysuria Expected: 02/06/2024 (Approxima te), Expires: 02/05/2025NOMS HealthcareComment on above:Expected: 02/06/2024 (Approximate), Expires: 02/05/2025Start: 01-13-2024 End: 35-37-6841Tvilkss encounter procedureNOMS CWM FMComment on above:Arrived Start: 19-43-2600WCBJV-19 Vaccine ( season)COVID-19 Vaccine ( season)[facility]: 73-42-2187BJRZK-19 Vaccine ( season)COVID-19 Vaccine ( season)[facility]: 93-68-0915Taclopuco vaccinationUC Medical Center: 12-23-2023 End: 81-82-9803Fytuoap encounter potxuzjyw92/16/2024 10:00 AM EDT Appointment [facility] [address] [place] [address] Roc Ramsey DO [address] [place] [address] [facility]art: 12-14-2023 End: 84-15-7207XL.doppler Extremity arteries - bilateral for physiologic artery studyVas art doppler lwr bilat mult lev/PVR Vascular Ultrasound Routine Claudication (CMS-HCC) Expected:12/14/2023, Expires: 12/13/2024[facility] Work Phone: Comment on above:Expected: 12/14/2023, Expires: 12/13/2024Start: 12-07-2023 End: 36-91-3007DR.doppler Extremity arteries - bilateral for physiologic artery studyVas art doppler lwr bilat mult lev/PVR Vascular Ultrasound Routine Right leg pain Expected: 12/07/2023, Expires: 12/06/2024[facility] Work Phone: Comment on above:Expected: 12/07/2023, Expires: 12/06/2024Start: 11-21-2023 End: 31-80-6421Qypirrb encounter jlkmeokdy94/15/2024 8:50 AM EDT Office Visit [place] [address] [place] [address] Valentino Ty MD [address] [facility] [address], [address] [place] [address] [facility]Start: 11-09-2023 End: 67-42-8675Nazjviy Device Check - In [facility] Work Phone: Comment on above:Expected: 11/09/2023 (Approximate), Expires: 08/04/2024Start: 11-09-2023 End: 07-75-0037NL Chest 2 [facility] Work Phone: Comment on above:Expected: 11/09/2023, Expires: 08/04/2024Once for 1 Occurrences starting 11/09/2023 until 11/09/2023Start: 11-09-2023 End: 16-17-5686Oesvwsy encounter procedureEvans Army Community Hospitaltart: 11-03-2023 End: 16-80-6589Oyvhlyi encounter ghxcsjefz26/27/2024 8:50 AM EDT Office Visit [place] [address] [place] [address] Valentino Ty MD [address] [facility], [address] [place] [address] [facility] CenterStart: 08-12-2023 End: 03-65-9703Fxlipqvv Owwlpva8808/12/2023 8:30 AM EDT Clinical Support [facility] [address] [place] [address] [facility] Centertart: 88-26-0437Nkdanqnxli hospital visit by ughkpsjye93/03/2024 2:09 PM EDT Hospital Encounter [facility] [address] [place] [address] Localized swelling on left hand; S/P placement of cardiac pacemakerProwers Medical CenterComment on above:Localized swelling on left hand; S/P placement of cardiac pacemakerStart: 07-22-2023 End: [id number] Heart TransthoracicTransthoracic Echo Complete Echocardiography Routine Sinus bradycardia Chronotropic incompetence Sick sinus syndrome (CMS/HCC) Other fatigue Preoperative cardiovascular examination Expected: 07/22/2023 (Approximate), [facility]: Comment on above:Expected: 07/22/2023 (Approximate), Expires: 07/21/2025Start: [id number], Provider: Valentino Ty, Status: Pen, Time: 8:30 AMFUV, Provider: Valentino Ty, Status: Pen, Time: 8:[address] [facility] 600 DO Work Phone: Start: 44-66-4328XFCMP-19 Vaccine ( season) COVID-19 Vaccine ( season)[facility] CenterStart: 07-12-0709Ervzbrlxn vaccinationInfluenza Vaccine (#1)[facility]: 59-29-6517EMN, Provider: Valentino Ty, Status: Pen, Time: 10:40 AMFUV, Provider: Valentino Ty, Status: Pen, Time: 10:40 AMMP-[facility] 600 DO Work Phone: Start: 22-20-8411UCKXKL JUICE, Provider: CARLITO HHVI NUCLEAR 01,[id number], Status: Pen, Time: 2:00 PMSTRESS JUICE, Provider: CARLITO HHVI NUCLEAR 01,[id number], Status: Pen, Time: 2:00 PMMP-[facility] 600 DO Work Phone: Start: 58-07-5569Fsnzitivzhsxpp of varicella zoster vaccineZoster (Shingles) Vaccine (1 of 2)[facility] Hostmonster SystemStart: 52-03-2518Zpmyoaxg specific antigen measurementPSA Prostate Cancer Screening [facility]: 02-65-2816BRE High Risk: (Elderly (60+) or Population) (1 - Risk 50-74 years 1-dose series)RSV High Risk: (Elderly (60+) or Population) (1 - Risk 50-74 years 1-dose series) [facility]: 85-43-6254Qjobgk Vaccines (1 of 2)Zoster Vaccines (1 of 2)[facility]: 05-38-6268NJeU/Tdap/Td Vaccines (1 - Tdap)DTaP/Tdap/Td Vaccines (1 - Tdap)[facility]: 25-74-5820ZKaJ,Tdap and Td Vaccines (1 - Tdap)DTaP,Tdap and Td Vaccines (1 - Tdap)[facility] Host[facility] SystemStart: 26-62-0764Wwbgfxeyx B Vaccines (1 of 3 - 19+ 3-dose series)Hepatitis B Vaccines (1 of 3 - 19+ 3-dose series) [facility]: 83-84-6347Hsaryoeenzaj vaccination Pneumococcal Vaccine (1 of 2 - PCV)[facility]: 79-44-5708Njipa screening for proteinDiabetes: Urine Protein ScreeningUC Medical Center: 66-06-4108Lknxw BMI Follow Up PlanAdult BMI Follow Up PlanWake Forest [facility] Hospitaltart: 48-82-7076Xcclvhwx mellitus screening Diabetes ScreeningUC Medical Center: 60-26-9496Yhqgdgni foot examinationDiabetic Foot ExamProKettering Health Greene Memorialtart: 02-21-1983 Hepatitis C screeningHepatitis C ScreeningUnMemorial Hospital Start: 34-72-1786Aotrldavwj ScreeningDepression ScreeningProtestant Hospital Start: 67-60-1729Kfhbemgq foot examinationDiabetes: Foot ExamUnOhioHealth Doctors Hospital: 66-47-3426Tkyekclt screeningDiabetes: Retinopathy ScreeningUnOhioHealth Doctors Hospital: 79-45-5896Gpgnmlsyfwtk Vaccine: Pediatrics (0 to 5 Years) and At-Risk Patients (6 to 64 Years) (1 - PCV) Pneumococcal Vaccine: Pediatrics (0 to 5 Years) and At-Risk Patients (6 to 64 Years) (1 - PCV)[facility]: 30-37-2944Tiyrekoveqfh Vaccine: Pediatrics (0 to 5 Years) and At-Risk Patients (6 to 64 Years) (1 of 2 - PCV)Pneumococcal Vaccine: Pediatrics (0 to 5 Years) and At-Risk Patients (6 to 64 Years) (1 of 2 - PCV)[facility]: 82-83-4224WSJ Vaccines (1 of 1 - Standard series)MMR Vaccines (1 of 1 - Standard series) [facility]: 23-14-1587ZEIQX-19 Vaccine (#1)COVID-19 Vaccine (#1)[facility]: 40-98-6123Bkiphd wellness visitWelcome to Medicare VisitUnOhioHealth Doctors Hospital: 1965 Creatinine measurementCreatinine LevelUnOhioHealth Doctors Hospital: 27-29-4027TcqvomnyqztnhrojPcwzgkynxmbsuyCvhzaxzugl Hospitals [facility] ClevelandStart: 74-78-1767Eknlxvxo screeningDiabetic Ophthalmology ExamProBarnesville Hospital Start: 66-21-3853Drmilqepok A1c measurementDiabetes: Hemoglobin T6NPjqhlpnkbgOhioHealth Doctors Hospital: 11-10-5466Qoilwqkzb B Vaccines (1 of 3 - 3-dose series)Hepatitis B Vaccines (1 of 3 - 3-dose series)[facility]: 69-67-2281QLI screeningHIV ScreeningUC Medical Center: 00-75-3564Xzeoj panelLipid PanelUC Medical Center: 1965Medicare Annual Wellness (AWV)Medicare Annual Wellness (AWV)[facility]: 1964Medicare Annual Wellness VisitMedicare Annual Wellness Visit (AWV)[facility]: 1965 Potassium measurementPotassium LevelUnOhioHealth Doctors Hospital: 36-94-4263Qzxxxadfp for malignant neoplasm of colonUC Medical Center: 44-14-1200Oadrxan CounselingTobacco CounselingOhioHealth O'Bleness Hospital SystemStart: 48-84-5340Dcyfh screening for proteinDiabetes: Urine Protein ScreeningOhioHealth Arthur [facility] End: 95-00-1704Yepkb metabolic 2000 panel - Serum or PlasmaBasic Metabolic Panel Lab Routine Sinus bradycardia Chronotropic incompetence Sick sinus syndrome (C MS/HCC) Other fatigue 1 Occurrences starting 07/22/2023 until 07/21/2024 [facility] Work Phone: Comment on above:1 Occurrences starting 07/22/2023 until 07/21/2024 End: 20-98-8409Eelunwi Device Check - In ClinicCardiac Device Check - In Clinic Implantable Cardiac Device Routine Cardiac pacemaker in situ 1 Occurrences starting 05/23/2024 until 11/20/2025[facility] Service Area Work Phone: Comment on above:1 Occurrences starting 05/23/2024 until 11/20/2025 End: 19-53-0234Isfxcxq Device Check - In ClinicCardiac Device Check - In Clinic Implantable Cardiac Device Routine Cardiac pacemaker in situ 1 Occurrences starting 11/28/2024 until 05/31/2026[facility] Service Area Work Phone: Comment on above:1 Occurrences starting 11/28/2024 until 05/31/2026 End: 71-44-2334Aysyxzh Device Check - RemotePRESBYTERIAN [facility] Service [facility] Work Phone: Comment on above:Once for 1 Occurrences starting 01/25/2024 until 01/25/2024 End: 51-61-3845Yyahhuh Device Check - RemoteCardiac Device Check - Remote Implantable Cardiac Device Routine Cardiac pacemaker in situ 52 Occurrences starting 05/23/2024 until 11/20/2024[facility] Work Phone: Comment on above:52 Occurrences starting 05/23/2024 until 11/20/2024 End: 27-97-0698Sjomhkp Device Check - RemoteCardiac Device Check - Remote Implantable Cardiac Device Routine Cardiac pacemaker in situ 52 Occurrences starting 11/28/2024 until 05/31/2025[facility] Work Phone: Comment on above:52 Occurrences starting 11/28/2024 until 05/31/2025 End: 85-30-4517ZWH panel - Blood by Automated countCBC Lab Routine Sinus bradycardia Chronotropic incompetence Sick sinus syndrome (CMS/HCC) Other fati tamika 1 Occurrences starting 07/22/2023 until 07/21/2024[facility] Work Phone: Comment on above:1 Occurrences starting 07/22/2023 until 07/21/2024ECG 12 lead (Clinic Performed)ECG 12 lead (Clinic Performed) ECG Routine Sinus bradycardia 11/09/2023 10:38 AM [facility] Work Phone: ecg 12 lead STATECG 12 lead STAT ECG STAT 08/05/2023 12:30 PM [facility] Service Area Work Phone: ecg 12 lead STATECG 12 lead STAT ECG STAT 08/05/2023 5:12 PM [facility] Work Phone: LOWMF RESPIRATORY CULTURELOWER RESPIRATORY CULTURE Lab Routine 05/27/2024 6:00 PM ESTNOMS HealthcarePPM IMPLANT DCPPM IMPLANT DC Sinus bradycardia Chronotropic incompetence Sick sinus syndrome (CMS/HCC) Other fatig ueUniSelect Medical [facility] Work Phone: End: 97-34-8835Navzukbbori time (PT)Protime-INR Lab Routine Sinus bradycardia Chronotropic incompetence Sick sinus syndrome (CMS/HCC) Other fatigue 1 Occurrences starting 07/22/2023 until 07/21/2024[facility] Service Area Work Phone: Comment on above:1 Occurrences starting 07/22/2023 until 07/21/2024 Payers DatePayer CategoryPayerPolicy [id number]-pay2024Medicare (Managed Care)[id number] Health [id number] [id number] 72-45-2012Vyixilj Health Jh[id number] 2..840.1.593674.3.57[id number] 2..840.1.433968.3.57[id number] 2..840.1.671386.3.57[id number] 2.16.840.1.230427.3.57[id number] 2..840.1.626487.3.579.[id number] 2.16.840.1.935577.3.57[id number] 2.16.840.1.522634.3.57[id number] 2.16.840.1.092513.3.579.2.17323-01-0852Gfalupp2304589 2.16.840.1.188913.3.579.2.85944-18-9771Lzwjuxt6024419 2.16.840.1.071502.3.579.2.26577-45-1249Rpytimi1703241 2.16.840.1.891598.3.579.2.78104-70-3653Ieywhzd6569849 2.840.1.610130.3.579.2.71524-57-8737Ehgbtfr8585927 2..840.1.141582.3.579.2.84590-46-5502Upwknkf2063373 2.840.1.134028.3.579.2.34979-41-0936Krntmlg5219760 2.840.1.130449.3.579.2.82443-54-2904Adoizoa9349565 2.840.1.315564.3.579.2.96914-89-2470Gjppgdd1800015 2..840.1.012462.3.579.2.54542-28-4134Oevcchd9708977 2.840.1.619131.3.579.2.55231-23-7150Wbtsvrs9272585 2.840.1.638839.3.579.2.70604-26-7171Bnxskqh6243703 2.840.1.185756.3.579.2.65626-58-5927Ugrhifn3636921 2.840.1.943505.3.579.2.54274-24-1086Cfddgke0841549 2.840.1.735730.3.579.2.37481-30-8382Gzzctvr4089491 2.840.1.309631.3.579.2.50185-59-0326Xccjgvg8531054 2.840.1.510797.3.579.2.67753-46-7486Aqnbgds4674722 2.840.1.386340.3.579.2.67206-93-2897Fuuonqi8511313 2..840.1.169232.3.579.2.93989-05-1427Ekyydht2627617 2.840.1.557607.3.579.2.37215-08-5433Ygegfux4852431 2.840.1.435033.3.579.2.98119-38-1056Oieljoq7818460 2.840.1.871954.3.579.2.45571-20-6961Cftdfml0102358 2.840.1.294574.3.579.2.17185-60-8459Tlvoana445507986 2.840.1.672900.3.579.2.89291-26-1883Iiehoej921490441 2.840.1.328675.3.579.2.84905-48-2812Iuhmyda957219820 2.840.1.724230.3.579.2.03143-96-5729Sdezcif88564391 2.840.1.678769.3.579.2.237965-99-3770Tqvtloc08624570 2.840.1.865080.3.579.2.433376-32-2011Jqrjozt6997674 2.840.1.582849.3.579.2.751811-28-8359Vwlvtgx5079244 2.840.1.172852.3.579.2.116442-90-8625Msqxcnq7836934 2.840.1.447147.3.579.2.863584-08-9074Dfddmtr2859819 2..840.1.692882.3.579.2.815488-88-3712Deygvne2210039 2..840.1.203371.3.579.2.617567-55-5832Dlaurrn865789035 2..840.1.572783.3.579.2.974541-02-6153Kfbujrb170233981 2..840.1.832014.3.579.2.406901-44-8876Boltifk115125351 2..840.1.459210.3.579.2.164837-95-8157Kgfrqau04583547 2.840.1.747808.3.579.2.945921-04-1178Oxsnufw10866414 2.0.1.488910.3.579.2.894580-45-3943Olgibhw20325394 2.840.1.918791.3.579.2.256591-71-3732Xorjsnu54918126 2.840.1.161227.3.579.2.1246 [id number] 1961Medicare [id number] [facility] [id number] 6qed1ma4-fgj6-9485-n5ay-[id number] 2.840.1.493050.3.579.2.277Xwajhnz22645399 2.0.1.656638.3.579.2.531 Social History DateTypeDetailFacilityStart: 07-13-2023 End: 31-86-9168Di alcohol useNo alcohol useNOMS HealthcareComment on above:1 pack daily;Start: 04-13-2023 End: 04-15-9711Fglmdec smoking status NHISSmokes tobacco dailyUnMemorial HospitalStart: 97-81-7033Mqvkqfg of tobacco useCigarette Smoker [facility] Work Phone: Start: 04-13-2023 End: 55-80-4954Pxwkxbx use and exposureSmokeless tobacco non-userUnMemorial Hospital Work Phone: Start: 07-19-2023 End: 64-56-9197Qffehzz intakeLifetime non-drinker (finding)[facility] Work Phone: Start: 07-13-2023 End: 84-99-5720Qinxfpe use panelNOCA HealthcareStart: 32-05-9472Kvq Assigned At BirthNot on fileUnMemorial Hospital Work Phone: Start: 07-12-2023 End: 49-61-6862Oxfyhssx to SARS-CoV-2 (event)Not sureUnMemorial HospitalStart: 04-03-2022 End: 58-87-0823Ttxbkteqj of Social Gatherings with Friends and FamilyNot on file NOMS HealthcareDo you belong to any clubs or organizations such as confucianist groups, unions, fraternal or athletic groups, or school groups?NoNOMS Healthcare Are you now , , , , never or living with a partner?Living with partnerNOMS HealthcareHow often to you have a drink containing alcohol?NeverNOMS HealthcareDo you feel stress - tense, restless, nervous, or anxious, or unable to sleep at night because yourmind is troubled all the time - these days [OSQ]Not at allNOMS Healthcare(I/We) worried whether (my/our) food would run out before (I/we) got money to buy more.Never trueNOMS HealthcareStart: 67-44-2583Pxqyhyd smoking status NHISSmoker (finding)[facility] 04-03[facility]2022 End: 54-66-4092QmaFqmc (finding)[facility] Centertart: 51-97-8009Fje [facility]ictart: 17-55-6698Odmhmsh smoking status NHISEx-smokerOhioHealth Arthur [facility] Work Phone: Medical Equipment Procedure CodeEquipment CodeEquipment Original TextEquipment IdentifierDates Lead, Capsurefix Novus, 52 Cm - [id number]: 62-31-8441Ldfq, Capsurefix Novus, 45 Cm - [id number]: 93-25-0651Lstbfmggy, Dual Chamber, Kae Mri Xt Dr - [id number]: 41-11-4237Admy 44b61lk Progrip [facility] - [id number]: 06-30-2021 Functional Status TuniPoiftnhvzjSunobbItznhtkt25-78-0175Urarjij Health Questionnaire 2 item (PHQ- 2) [Reported][facility] Sahzebgsro60-49-5333Rmbrg score [AUDIT-C]0 10/09/2023 9:03 AM EDT DataPoprosieKaneq BioscienceCameron Regional Medical CenterXuekfbexrl81-13-0983Nqi often do you have a drink containing alcohol?Never 10/09/2023 9:03 AM EDT DataPopMadison Medical Center06-02-2024Functional statusPatient does not drink 10/09/2023 9:03 AM EDT [employer], [employer] Patient does not drinkCameron Regional Medical CenterBykhzaqnpu73-76-8636Bnk often do you have 6 or more drinks on 1 occasion?Never 10/09/2023 9:03 AM T [facility]PopTr[facility] Clinical Notes 08-31-2020 to 02-05-2025 Note Date & TkymKuacReqvbasm29-03-2567 NoteNeurosurgery Consult Chief Complaint: Right leg and groin pain, low back pain. History of Present Illness: Liliana Michaels is a 59 y.o. adult who presents in kind referral from Dr. Reyes for evaluation of chronic right proximal lower extremity pain and low back pain. The patient states that his symptoms began in 2019 when he fell down the steps sideways. This resulted in forceful abduction of the leg and he states that he ripped his inner thigh. He began to suffer from severe pain in the proximal right lower extremity including the region of the hip and groin. He was ultimately diagnosed as having avascular necrosis of the right hip. He had seen a spine surgeon who had not recommended any spine surgery and thought that the majority of the problem was coming from the hip joint in the region of injury. Ultimately, he underwent a right hip arthroplasty. He was also discovered to have an inguinal hernia which underwent repair. He has seen Dr. Marcelino with [facility] surgery in the past. Despite these interventions, pain persisted. He had seen multiple orthopedic surgeons who he reports said that there was nothing wrong with the leg. He had ultimately established care with pain management and has undergone multiple therapies including radiofrequency ablations in the back. He has used Percocet for back pain since before the fall occurred in 2021. MRI imaging and previously been obtained demonstrating multilevel lumbar stenosis but the patient has been adamant that he did not wish to consider spine surgery. Placement of a Vertiflex device had been considered and spinal cord stimulation had been discussed with the patient. He is referred primarily for discussion of potential surgical treatment versus the appropriateness of a trial of spinal cord stimulation. Currently, his worst pain is located in the right medial groin and extends into the lower abdominal region. In general, he denies other pain radiating into the leg and notes that this typically only occurs when he walks a long distance. He notes some occasional right lateral thigh pain which occurs perhaps once a week. He notes bilateral low back pain. He denies any substantial numbness. He does have a sense of thigh weakness particularly on the right. Problem List: Problem List[1] Past Medical History: Medical History[2] Past Surgical History: Surgical History[3] Medications: Current Medications[4] Allergies: Allergies[5] Social History: Social History Socioeconomic History Marital status: Single Spouse name: Not on file Number of children: Not on file Years of education: Not on file Highest education level: Not on file Occupational History Not on file Tobacco Use Smoking status: Every Day Current packs/day: 0.50 Types: Cigarettes Smokeless tobacco: Never Substance and Sexual Activity Alcohol use: Never Drug use: Never Sexual activity: Not on file Other Topics Concern Not on file Social History Narrative Not on file Social Drivers of Health Financial Resource Strain: Low Risk (10/09/2023) Received from [facility] Overall Financial Resource Strain (CARDIA) Difficulty of Paying Living Expenses: Not hard at all Food Insecurity: No Food Insecurity (12/07/2023) [facility] Hunger Screening Within the past 12 months we worried whether our food would run out before we got money to buy more.: Never True Within the past 12 months the food we bought just didn't last and we didn't have money to get more.: Never True Transportation Needs: No Transportation Needs (10/09/2023) Received from [facility] PRAPARE - Transportation Lack of Transportation (Medical): No Lack of Transportation (Non-Medical): No Physical Activity: Insufficiently Active (10/09/2023) Received from [facility] Exercise Vital Sign Days of Exercise per Week: 2 days Minutes of Exercise per Session: 10 min Stress: No Stress Concern Present (10/09/2023) Received from [facility] [place] [employer] Occupational Health - Occupational Stress Questionnaire Feeling of Stress : Not at all Social Connections: Unknown (10/09/2023) Received from [facility] Social Connection and Isolation Panel [NHANES] Frequency of Communication with Friends and Family: More than three times a week Frequency of Social Gatherings with Friends and Family: Not on file Attends Faith Services: Patient declined Active Member of Clubs or Organizations: No Attends Club or Organization Meetings: Patient declined Marital Status: Living with partner Intimate Partner Violence: Unknown (02/05/2025) Humiliation, Afraid, Rape, and Kick questionnaire Fear of Current or Ex-Partner: No Emotionally Abused: Not on file Physically Abused: Not on file Sexually Abused: Not on file Housing Stability: Low Risk (10/09/2023) Received from [facility] Housing Stability Vital (more content not included)...[facility]08-18-2025 History of Present illness Narrative* Ismhael Simon MD - 12/24/2024 9:24 AM EDTAssociated Problem(s): Type 2 diabetes mellitus with hyperglycemia, without long-term current use of insulin (HCC) Not checking BS and recent A1C 7.0. Stick to ADA diet and limit carbs. * Ishmael Simon MD - 12/24/2024 9:24 AM EDTAssociated Problem(s): Essential hypertension, benign BP controlled and monitor PRN. * Ishmael Simon MD - 12/24/2024 9:24 AM EDTAssociated Problem(s): DDD (degenerative disc disease), lumbar Pain improved with topamax but starting to worsen and increase dose. Follow with pain management. * Ishmael Simon MD - 12/24/2024 9:24 AM EDTAssociated Problem(s): Chronic diastolic heart failure (HCC) Edema stable and continue lasix. Elevate legs PRN. * Ishmael Simon MD - 12/24/2024 8:30 AM EDT Images from the original note were not included. Subjective Patient ID: Liliana Michaels Jr is a 59 y.o. male who presents for Follow-up and Nasal Congestion. Follow up DM, HTN, edema, and back and hip pain. Not checking BS away from office and recent A1C 7.0. Tries to eat well and stick to ADA diet. Denies signs of elevated BS such as polyuria, polyphagiaor polydipsia. Checking BP PRN and typically controlled. BP normal today. Taking medication daily and tolerating without side effects. Back pain slightly better with topamax. Mild pain in low back and across top hips. Continued pain into right inguinal region and right thigh. Pain increased with walking and standing. Waiting to hear from pain management about implant. Using percocet PRN and helpswith pain. Edema controlled with medication. Mild swelling at end of day and if on feet a lot. Edema improved in am and with elevation. Uses lasix PRN and helps when needed. Review of Systems Constitutional: Negative for fatigue. [...] hypertension, benign BP controlled and monitor PRN. Chronic diastolic heart failure (HCC) Edema stable and continue lasix. Elevate legs PRN. DDD (degenerative disc disease), lumbar Pain improved with topamax but starting to worsen and increase dose. Follow with pain management. Relevant Medications topiramate 50 MG tablet Type 2 diabetes mellitus with hyperglycemia, without long-term current use of insulin (HCC) - Primary Not checking BS and recent A1C 7.0. Stick to ADA diet and limit carbs. documented in this encounterCameron Regional Medical CenterGbylnxyxcp29-92-1350 History of Present illness Narrative* Amador Son MD - 11/28/2024 8:30 AM EDT CARDIOLOGY OFFICE VISIT CHIEF COMPLAINT Chief Complaint Patient presents with Follow-up Patient is present for 6 month follow up with device check for Cardiac pacemaker in situ. HISTORY OF PRESENT ILLNESS HPI 59-year-old male who is followed for symptomatic bradycardia and chronotropic incompetence. He underwent implantation of a dual-chamber pacemaker on August 05, 2023 and presents to the office today for follow-up evaluation. So far he has been doing well. Denies any symptoms of chest pain or shortness breath or palpitations. Device interrogation today at the device clinic shows dual-chamber pacemaker Medtronic with batterylongevity 12 years 8 months. No evidence of atrial or ventricular events. EKG performed today shows atrial paced rhythm at rate of 65 bpm QRS duration 106 ms QT corrected 447 ms. Rhythm strip shows the same pattern. Past Medical History Medical History[1] Social History Social History[2] Family History Family History[3] Allergies: RX Allergies[4] Outpatient Medications: Current Outpatient Medications Medication Instructions albuterol (Ventolin HFA) 90 mcg/actuation inhaler 2 puffs, Every 4 hours PRN Aldactone 100 mg, Daily with breakfast aspirin 81 mg, oral, Daily baclofen (Lioresal) 10 mg tablet TAKE 1/2 TO 1 TABLET BY MOUTH TWICE A DAY cetirizine (ZYRTEC) 10 mg, Nightly bvczcshyxor-weqnprrzl-jeajvuql (TRELEGY-ELLIPTA) 100-62.5-25 mcg blister with device 1 puff furosemide (LASIX) 40 mg, 2 times daily nabumetone (RELAFEN) 500 mg, 2 times daily omeprazole (PRILOSEC) 40 mg, Daily oxyCODONE-acetaminophen (Percocet) 7.5-325 mg tablet 1 tablet, Every 6 hours PRN oxygen (O2) gas therapy 2l at bedtime rosuvastatin (CRESTOR) 10 mg, oral, Daily Singulair 10 mg, Nightly topiramate (TOPAMAX) 25 mg, 2 times daily REVIEW OF SYSTEMS Review of Systems Cardiovascular: Positive for palpitations. Negative for chest pain and dyspnea on exertion. Respiratory: Positive for wheezing. VITALS Vitals: 11/28/24 0904 BP: 122/70 Pulse: 65 PHYSICAL EXAM Constitutional: General: Awake. Appearance: Normal and healthy appearance. Well-developed and not in distress. Obese. Neck: Vascular: No JVR. JVD normal. Pulmonary: Effort: Pulmonary effort is normal. Breath sounds: Wheezing present. No rhonchi. No rales. Comments: Expiratory, bilaterally Chest: Chest wall: Not tender to palpatation. [...] incompetence and symptomatic sinus bradycardia status post dual- chamber pacemaker implant (Medtronic Kae XT DR MCCORMICK) [...] II obesity with a BMI 35.27. Plan recommendation From the solutions development analyst on point he is stable. He is maintaining sinus rhythm. Continue with current medical therapy. Follow device [...] software was utilized to prepare this document. I, Dr. Son, personally performed the services described in the documentation as scribed by the nurse in my presence, and confirm it is both accurate and complete. [1] Past Medical History: Diagnosis Date Arrhythmia CHF (congestive heart failure) COPD (chronic obstructive pulmonary disease) (Multi) Hypertension [2] Social History Tobacco Use Smoking status: Former Average packs/day: 1 pack/day for 15.0 years (15.0 ttl pk-yrs) Types: Cigarettes Start date: 2024 Smokeless tobacco: Never Vaping Use Vaping status: Never Used Substance Use Topics Alcohol use: Never Drug use: Yes Frequency: 1.0 times per week Types: Marijuana Comment: for sleeping [3] Family History Problem Relation Name Age of Onset Mental illness Mother No Known Problems Father [4] No Known Allergies documented in this encounterOhio[facility] Work Phone: [phone] Instructions* Patient Instructions* Jazz Flynn RN - 11/28/2024 8:30 AM EDT Continue same medications/treatment. Patient educated on [...] time of your visit. Follow up with our physician night assistant, Vaishnavi, in 6 months with device check Continue remote checks at 3 and 9 months IJazz RN, AM SCRIBING FOR, AND IN THE PRESENCE OF DR. AMADOR SON MD documented in this encounterOhioHealth [facility] Work Phone: [phone] History of Present illness Narrative* Ishmael Simon MD - 10/23/2024 10:05 AM EDTAssociated Problem(s): Type 2 diabetes mellitus with hyperglycemia, without long-term current use of insulin (HCC) Not checking BS and due for A1C. Stick to ADA diet and limit carbs. * Ishmale Simon MD - 10/23/2024 10:05 AM EDTAssociated Problem(s): Primary osteoarthritis of right hip Pain stable and use percocet PRN. Continue home PT exercises. * Ishmael Simon MD - 10/23/2024 10:05 AM EDTAssociated Problem(s): Essential hypertension, benign BP controlled and monitor PRN. * Ishmael Simon MD - 10/23/2024 10:05 AM EDTAssociated Problem(s): DDD (degenerative disc disease), lumbar Pain unchanged and appears to have worsening radicular symptoms. Stopped lyrica due to side effectsand in past did not tolerate zonegran. Try topamax. * Ishmael Simon MD - 10/23/2024 10:04 AM EDTAssociated Problem(s): Class 2 severe obesity due to excess calories with serious comorbidity and body mass index (BMI) of 39.0 to 39.9 in adult ([facility]) Weight loss indicated. * Ishmael Simon MD - 10/23/2024 10:04 AM EDTAssociated Problem(s): Chronic obstructive pulmonary disease (HCC) Symptoms stable and continue trelegy. Use albuterol PRN. Follow up with pulmonology. * Ishmael Simon MD - 10/23/2024 10:04 AM EDTAssociated Problem(s): Chronic diastolic heart failure (HCC) Edema worse with higher dose lyrica and improved after stopping. Continue lasix. * Ishmael Simon MD - 10/23/2024 9:15 AM EDT Images [...] hyperglycemia, without long-term current use of insulin ([facility]) - Primary Not checking BS and due [...] index (BMI) of39.0 to 39.9 in adult ([facility]) Weight loss indicated. Relevant Orders TSH Primary osteoarthritis of right hip Pain stable and use percocet PRN. Continue home PT exercises. documented in this encounterCameron Regional Medical [id number] History of Present illness Narrative* Ishmael Simon MD - 07/23/2024 10:54 AM EDTAssociated Problem(s): Type 2 diabetes mellitus with hyperglycemia, without long-term current use of insulin ([facility]) Not checking BS but A1C controlled. Stick to ADA diet and limit carbs. * Ishmael Simon MD - 07/23/2024 10:53 AM EDTAssociated Problem(s): Primary osteoarthritis of right hip Pain stable and use percocet PRN. Continue home PT exercises. * Ishmael Simon MD - 07/23/2024 10:53 AM EDTAssociated Problem(s): Peripheral vascular disease, unspecified (CMS/HCC) No symptoms and increase ambulation. * Ishmael Simon MD - 07/23/2024 10:53 AM EDTAssociated Problem(s): Essential hypertension, benign ([facility]) BP controlled and monitor PRN. * Ishmael Simon MD - 07/23/2024 10:53 AM EDTAssociated Problem(s): DDD (degenerative disc disease), lumbar Pain stable and follow with pain management for procedures. * Ishmael Simon MD - 07/23/2024 10:53 AM EDTAssociated Problem(s): Class 2 severe obesity due to excess calories with serious comorbidity and body mass index (BMI) of 38.0 to 38.9 in adult ([facility]) Weight loss indicated. * Ishmael Simon MD - 07/23/2024 10:52 AM EDTAssociated Problem(s): Chronic obstructive pulmonary disease ([facility]) Increased symptoms and treat with levaquin and prednisone. Use albuterol PRN. * Ishmael Simon MD - 07/23/2024 10:52 AM EDTAssociated Problem(s): Chronic diastolic heart failure (CMS/HCC) Occasional edema and use lasix PRN. Elevate legs PRN. * Ishmael Simon MD - 07/23/2024 10:15 AM EDT Images from the original note were not included. Subjective Patient ID: Liliana Michaels Jr is a 59 y.o. male who presents for Follow-up (3 m). Follow up DM, HTN, edema, back pain, hip pain, and COPD. Patient stable today. Not checking BS awayfrom office but last A1C 6.3. Tries to eat well and stick to ADA diet. Denies signs of elevated BS such as polyuria, polyphagia or polydipsia. Checking BP PRN and typically controlled. BP normal today. Taking medication daily and tolerating without side effects. Back pain stable. Mild pain in low back and across top hips. No radiation into right gluteal region or right thigh. Pain increased with walking and standing. Using percocet PRN and helps with pain. Recent ablation helps. Right hip pain stable. Stiff and sore in am but improved once up and moving. Tries to walk and stay active. Tries to perform home PT exercises which help. Edema controlled with medication. Mild swelling at end of day and if on feet a lot. Edema improved in am and with elevation. Uses lasix PRN and helps when needed. COPD recently worse. Increased SOB with exertion. Frequent cough and sputum. Taking trelegy dailyand using albuterol PRN. Following with pulmonology. Review [...] Items Addressed This Visit Essential hypertension, benign (CMS/HCC) BP controlled and monitor PRN. Chronic diastolic heart failure (CMS/HCC) Occasional edema and use lasix PRN. Elevate legs PRN. Chronic obstructive pulmonary disease (CMS/HCC) Increased symptoms and treat with levaquin and prednisone. Use albuterol PRN. Relevant Medications predniSONE (Deltasone) 50 MG tablet levoFLOXacin (Levaquin) 750 MG tablet DDD (degenerative disc disease), lumbar Pain stable and follow with pain management for procedures. Peripheral vascular disease, unspecified (CMS/HCC) No symptoms and increase ambulation. Type 2 diabetes mellitus with hyperglycemia, without long-term current use of insulin (CMS/HCC) - Primary Not checking BS but A1C controlled. Stick to ADA diet and limit carbs. Relevant Orders Microalbumin / creatinine, urine ratio Class 2 severe obesity due to excess calories with serious comorbidity and body mass index (BMI) of38.0 to 38.9 in adult (CMS/HCC) Weight loss indicated. Primary osteoarthritis of right hip Pain stable and use percocet PRN. Continue home PT exercises. documented in this [facility]02-05-[facility]25 History of Present illness Narrative* Valentino yT MD - 06/13/2024 9:10 AM EST Subjective Liliana Michaels . is a 59 y.o. male Chief Complaint [...] quit smoking. He denies chest pain, lightheadedness, dizzinessor syncope. His recent device check noted and [...] puffs every 4 hours if needed., Disp: ,Rfl: Aldactone 100 mg tablet, Take 1 tablet [...] once daily at bedtime., Disp: , Rfl: ndlbtjpyohu-vrpeacfoi-ldqnmqcz (TRELEGY-ELLIPTA) 100-62.5-25 mcg blister with device, Inhale [...] the direction and in the presence of MD Bernardo. Provider Attestation - Scribe documentation All medical record entries made by the Scribe were at my direction and personally dictated by me. Ihave reviewed the chart and agree that the record accurately reflects my personal performance of the history, physical exam, discussion and plan. documented in this encounterOhioHealth [facility] Work Phone: [phone] Instructions* Patient Instructions* Yola Morrow LPN - 06/13/2024 9:10 AM [...] follow up per routine documented in this encounterOhioHealth [facility] Work Phone: [phone] History of Present illness Narrative* Ishmael Simon MD - 06/06/2024 10:12 AM ESTAssociated Problem(s): Essential hypertension, benign (CMS/HCC) BP controlled and monitor PRN. * Ishmael Simon MD - 06/06/2024 10:12 AM ESTAssociated Problem(s): Class 2 severe obesity due to excess calories with serious comorbidity and body mass index (BMI) of 36.0 to 36.9 in adult ([facility]) Weight loss indicated. * Ishmael Simon MD - 06/06/2024 10:11 AM ESTAssociated Problem(s): Chronic obstructive pulmonary disease ([facility]) Recent exacerbation but improved. Complete prednisone as directed. Use albuterol PRN. * Ishmael Simon MD - 06/06/2024 10:11 AM ESTAssociated Problem(s): Chronic hypoxic respiratory failure ([facility]) Normal SpO2 on room air and continue nocturnal O2. * Ishmael Simon MD - 06/06/2024 9:45 AM EST Images from the original note were not [...] HFA 90 mcg/act inhaler documented in this encounterCameron Regional Medical [id number] Note Gram Stain Evaluation This specimen is of good quality and is acceptable for routine [facility] [id number] NoteGRAM STAIN EVALUATIONbacterial culture.Hillside HospitalZcixskszkg06-99-1795 History of Present illness Narrative* Amador Son MD - 05/23/2024 8:45 AM EST CARDIOLOGY OFFICE VISIT CHIEF COMPLAINT Chief Complaint [...] at the device clinic and it shows dual- chamber pacemaker Medtronic with battery longevity 13 years. [...] A DAY cetirizine (ZYRTEC) 10 mg, Nightly bitdxhomehh-mwzqjdboi-noekjbhx (TRELEGY-ELLIPTA) 100-62.5-25 mcg blister with device 1 [...] incompetence and symptomatic sinus bradycardia status post dual- chamber pacemaker implant (Medtronic [place] XT DR MRI) on August 05, 2023. [...] to prepare this document. documented in this [facility] Work Phone: [phone] Instructions* Patient Instructions* Jazz Flynn RN - 05/23/2024 8:45 AM [...] remote checks at 3 and 9 months IJazz RN, AM SCRIBING FOR, AND IN THE PRESENCE OF DR. AMADOR SON MD documented in this [facility] Work Phone: [phone] History of Present illness Narrative* Ishmael Simon MD - 04/24/2024 11:38 AM ESTAssociated Problem(s): Class 2 severe obesity due to excess calories with serious comorbidity and body mass index (BMI) of 37.0 to 37.9 in adult ([facility]) Weight up 28 pounds in past year. Add ozempic. * Ishmael Simon MD - 04/24/2024 11:38 AM ESTAssociated Problem(s): Essential hypertension, benign ([facility]) BP controlled and monitor PRN. * Ishmael Simon MD - 04/24/2024 11:38 AM ESTAssociated Problem(s): Type 2 diabetes mellitus with hyperglycemia, without long-term current use of insulin ([facility]) Not checking BS and due for A1C. Add ozempic. * Ishmael Simon MD - 04/24/2024 11:38 AM ESTAssociated Problem(s): Medicare annual wellness visit, subsequent Due for labs. Discussed proper diet and regular aerobic exercise. Need aerobic exercise 5-6 days a week for 30 minutes at a time. Smaller portions and limit total calories. Colonoscopy every 10 years. Tetanus every 10 years. Advised not to smoke. Discussed daily Aspirin therapy. * Ishmael Simon MD - 04/24/2024 11:00 AM EST Images from the original note were not [...] Items Addressed This Visit Essential hypertension, benign ([facility]) BP controlled and monitor PRN. Type 2 diabetes mellitus with hyperglycemia, without long-term current use of insulin ([facility]) Not checking BS and due for A1C. Add ozempic. Relevant Medications semaglutide (Ozempic, 0.25 or 0.5 MG/DOSE,) 2 MG/1.5ML solution pen-injector Other Relevant Orders Hemoglobin A1c Class 2 severe obesity due to excess calories with serious comorbidity and body mass index (BMI) of37.0 to 37.9 in adult ([facility]) Weight up 28 pounds in past year. [...] Discussed daily Aspirin therapy. documented in this encounterCameron Regional Medical [id number] History of Present illness Narrative* Ishmael Simon MD - 02/06/2024 1:30 PM EDTAssociated Problem(s): Prostatitis Pain with urination and in testicles. Treat with cipro. * Ishmael Simon MD - 02/06/2024 1:30 PM EDTAssociated Problem(s): Dysuria History suggestive UTI and treat. Take cipro for infection. Send urine for culture. Increase water intake and cranberry juice. Use motrin or tylenol for discomfort. * Ishmael Simon MD - 02/06/2024 1:00 PM EDT Images from the original note were not included. Subjective Patient ID: Liliana Michaels Jr is a 58 y.o. male who presents for UTI. Concerned of UTI. C/o pain and burning with urination over past 4-5 days. Increased frequency and urgency. Feels like emptying all the way. C/o pain and burning in urethra. Over past few days noticeda white discharge from end of penis. No [...] Chlamydia DNA probe, direct documented in this encounterCameron Regional Medical CenterCuxjjnlofe13-57-1469 History of Present illness Narrative* Ishmael Simon MD - 01/13/2024 10:05 AM EDTAssociated Problem(s): Type 2 diabetes mellitus with hyperglycemia, without long-term current use of insulin (CMS/[facility]) Not checking BS and A1C 5.8. Stick to ADA diet and limit carbs. * Ishmael Simon MD - 01/13/2024 10:05 AM EDTAssociated Problem(s): Primary osteoarthritis of right hip Pain stable and use percocet PRN. Continue home PT exercises. * Ishmael Simon MD - 01/13/2024 10:05 AM EDTAssociated Problem(s): Essential hypertension, benign ([facility]) BP controlled and monitor PRN. * Ishmael Simon MD - 01/13/2024 10:05 AM EDTAssociated Problem(s): DDD (degenerative disc disease), lumbar Pain worse and follow with pain management for ablation. * Ishmael Simon MD - 01/13/2024 10:04 AM EDTAssociated Problem(s): Chronic obstructive pulmonary disease ([facility]) Symptoms worse and treat with prednisone. Continue trelegy and use albuterol PRN. * Ishmael Simon MD - 01/13/2024 10:04 AM EDTAssociated Problem(s): Chronic diastolic heart failure ([facility]) Occasional edema and use lasix PRN. Elevate legs PRN. * Ishmael Simon MD - 01/13/2024 9:30 AM EDT Images from the original note were not included. Subjective Patient ID: Liliana Michaels Jr is a 58 y.o. male who presents for Follow-up (3 m). Follow up DM, HTN, edema, back pain, hip pain, and COPD. Patient stable today. Not checking BS awayfrom office but last A1C 5.8. Tries to [...] He is alert. Assessment/Plan documented in this encounterCameron Regional Medical [id number] Miscellaneous Notes* Telephone Encounter - Sheri Chau CMA - 12/26/2023 2:10 PM EDT ----- Message from Dr. Roc Ramsey DO sent at 12/24/2023 1:02 PM EDT ----- Please let patient know that everything looks fine with the major vessels but if he is having any right foot pain I would need to refer him to vascular surgery. Let me know. Thanks, Dr. Galindo * Telephone Encounter - Sheri Chau CMA - 12/26/2023 2:10 PM EDT Spoke with patient regarding vascular study results. [...] if pain get's worse. documented [facility] this [facility]Pro[facility] Telephone encounter Note* Telephone Encounter - Sheri Chau CMA - 12/26/2023 2:10 PM EDT ----- Message from Dr. Roc Ramsey DO sent at 12/24/2023 1:02 PM EDT ----- Please let patient know that everything looks fine with the major vessels but if he is having any right foot pain I would need to refer him to vascular surgery. Let me know. Thanks, Dr. Galindo [facility]08-19-2024 Telephone encounter Note* Telephone Encounter - Sheri Chau CMA - 12/26/2023 2:10 PM EDT Spoke with patient regarding vascular study results. [...] vascular surgery referral if pain get's worse. [facility]07-31-20[facility] History of Present illness Narrative* Roc Ramsey, - 12/07/2023 10:00 AM EDT Images from the original note were not included. [facility] [address] [id number] progress NOTE CHIEF COMPLAINT Chief Complaint Patient presents with Follow-up RECHECK INGUINAL HERNIA, RIGHT Liliananakul Michaels . is a 58 y.o. male who presents along with his with complaints of pain in his right groin and right anterior thigh. He used to receive radiofrequency ablation from the [facility] pain management but the last 1 [...] mouth 2 (two) times a day., Disp: ,Rfl: gabapentin (NEURONTIN) 300 mg capsule, Take 1 [...] History: Diagnosis Date Acute renal failure (ARF) ([facility] unknown origin Arrhythmia Bradycardia Bilateral carpal tunnel syndrome BPH with urinary obstruction Bradycardia Chronic hypoxemic respiratory failure ([facility] Cigarette nicotine dependence COPD (chronic obstructive pulmonary disease) ([facility] Degenerative disc disease, lumbar Dental disease Diabetes mellitus ([facility] ED (erectile dysfunction) Hypertension Insomnia shelter (current) use of inhaled steroids Morbid obesity ([facility] Nasal polyps Obesity TAHIR (obstructive sleep apnea) PVD (peripheral vascular disease) (CMS-HCC) Requires continuous at home supplemental oxygen 2 L NC at HS Right inguinal hernia Skin lesion Tobacco abuse Visual impairment glasses Vitamin D deficiency SURGICAL HISTORY Past Surgical History: Procedure Laterality Date CARDIAC PACEMAKER PLACEMENT 08/05/2023 COLONOSCOPY N/A 08/24/2019 Performed by Germán Dukes MD at [facility] CYST REMOVAL from neck DAVINCI REPAIR HERNIA INGUINAL Right 06/30/2021 Performed by Roc Ramsey DO at [facility] ELBOW SURGERY right JOINT REPLACEMENT right [...] Resource Strain: Low Risk (10/09/2023) [facility] Overall Financial Resource Strain (CARDIA) Difficulty of Paying Living Expenses: Not hard at all Food Insecurity: No Food Insecurity (12/07/2023) Hunger Screening Food Insecurity - Worry: Never True Food Insecurity - Inability: Never True Transportation Needs: No Transportation Needs (10/09/2023) Re[facility] from [facility] PRAPARE - Transportation Lack of Transportation (Medical): No Lack of Transportation (Non-Medical): No Physical Activity: Insufficiently Active (10/09/2023) Received from [facility] Exercise Vital Sign Days of Exercise per Week: 2 days Minutes of Exercise per Session: 10 min Stress: No Stress Concern Present (10/09/2023) Re[facility] from [facility] [place] [employer] Occupational Health - Occupational Stress Questionnaire Feeling of Stress : Not at all Social Connections: Unknown (10/09/2023) Received from [facility] Social Connection and Isolation Panel [NHANES] Frequency of Communication with Friends and Family: More than three times a week Frequency of Social Gatherings with Friends and Family: Not on file Attends Faith Services: Patient declined Active Member of Clubs or Organizations: No Attends Club or Organization Meetings: Patient declined Marital Status: Living with partner Interpersonal Safety: Not on file Housing Instability: Low Risk (10/09/2023) Received from [facility] Housing Stability Vital Sign Unable to Pay [...] inguinal hernia but he does have a smallleft inguinal hernia which he was unaware of [...] refer back to pain management at the [facility] 3. Left inguinal hernia asymptomatic will observe 4. Umbilical hernia asymptomatic will observe 5. Weight loss recommended He and his significant other understood all the above. Evaluation included: Preparing to see the patient (e.g., review of tests) Obtaining and/or reviewing separately obtained history Performing a medically appropriate examination and/or evaluation Counseling and educating the patient/family/caregiver Referring and communicating with other health foster care therapist No primary diagnosis found. Roc Ramsey DO This note was created with the assistance of a speech recognition program. While intending to generate a timely document that accurately reflects the content of the visit, no guarantee can be provided that every grammatical or spelling mistake has been or will be identified or corrected. Thank you for your understanding. documented in this encounterProtestant Hospital07-31-2024 Instructions* Patient Instructions* Roc Ramsey DO - 12/07/2023 10:00 AM EDT Are You Ready To Kick The Habit? Free Tobacco Cessation Resources [facility] Services [facility] provide all employees with free tobacco cessation services that include: Counseling to understand nicotine addiction Education about medications that can help you successfully quit Assistance with developing a plan to quit Call to set up an individual appointment or find out when group classes will be held: Allen acharya [facility]: [phone] [facility]: [phone] [facility]: [phone] [facility]: [phone] Quit Smoking Action Plan and Resources [facility] offers an eight-week, online smoking cessation plan to all [facility] employees, regardless of whether [employer] is your medical insurance provider. Go to www.Better [email or web address]/employeewellness and click the Health Risk Assessment and Resources link to get started. In the [employer] menu, click Action Plans instead of Health Risk Assessment to access the Quit Smoking Action Plan. Additional smoking cessation resources are also available to all [facility] employees on the [employer] web page at www.[employer]zzStream/quitsmoking. [employer] Tobacco Cessation Program If [employer] is your medical insurance provider, there are more free resources available to you, including: No copays or deductibles on local tobacco cessation counseling services to help you quit Prescription assistance for tobacco cessation medications to help you quit For details about the tobacco cessation program available to [employer] members, go to www.[employer]zzStream (Search: Tobacco Cessation Program). [place] Tobacco Quit Line 2-235-AQRF-NOW ( ) is a toll-free, telephonic service that helps [place] residents quit smoking and using tobacco. It is staffed by experts who tailor a quit plan for you and provide you with advice. [place] Tobacco Quit Line 2-605-CKYA-NOW ( ) is a toll-free, telephonic service that helps [place] residents quit smoking and using tobacco. It is staffed by experts who tailor a quit plan for you and provide you with advice. Two weeks of nicotine replacement therapy may be provided at no charge, if needed. Additional Resources These national organizations also offer free information and resources to help you quit tobacco: [employer] [employer]--www.cancer.org/healthy/stayawayfromtobacco [employer] [employer]--www.heart.org (Search: Quit Smoking) Centers for Disease Control and Prevention--www.cdc.gov/tobacco [employer] [employer]--www.lungusa.org documented in this encounterOhio State University Wexner Medical CenterProClarity Corporation Mclaren Thumb [id number] History of Present illness Narrative* Naima Wright, LYNN-NEGATIVE DEVELOPER - 11/09/2023 11:00 AM EDT CARDIOLOGY OFFICE VISIT CHIEF COMPLAINT Chief [...] implantation of a dual-chamber pacemaker on August 04 presents to the office today for follow-up evaluation. He states his hearts been doing fine. Hehas noted improved energy. He states that the [...] DAY cetirizine (ZYRTEC) 10 mg, oral, Nightly lsiwjpfwzor-qwgtcxlgq-byjpnppw (TRELEGY-ELLIPTA) 100-62.5-25 mcg blister with device 1 [...] 68 bpm, prolonged AV conduction with a ME interval of 220 ms, QRS durations 100 ms, QT 416 ms, QTc 442 ms. No acuteischemic changes are noted. Pacemaker interrogation dated November [...] incompetence and symptomatic sinus bradycardia status post dual- chamber pacemaker implant ([employer] [place] XT DR MCCORMICK) on August 05, 2023. [...] in clinic check in 6 months prior tothe office visit with Dr. Son. 3. Follow-up in office with Dr. Son in 6 months or sooner if needed. 4. Follow-up in office with Dr. Ty on November 21, 2023 at 8:50 AM as scheduled or sooner if needed. 5. Discussed routine device follow up is scheduled every 3-4 months. Inclinic checks alternate withremote (home) checks. Inclinic checks will be scheduled [...] to prepare this document. documented in this [facility] Work Phone: [phone]) 839-506204-03-2024 History of Present illness Narrative* Amador Son MD - 08/10/2023 12:45 PM EDT CARDIOLOGY OFFICE VISIT CHIEF COMPLAINT Chief Complaint Patient presents with Wound Check Patient is having swelling in his right hand HISTORY OF PRESENT ILLNESS HPI 58-year-old male with a past medical history of hypertension with tobacco use and COPD. Patient wasevaluated by cardiology service since January 2022 for bradycardia. Patient had an evaluation forshortness of breath and his stress test showed questionable inferior wall ischemia. At some point he had some evaluation in [place] that shows no significant obstructive coronary disease [...] Agatston score of 122 which places the patientbetween the 50th and 75th percentile rank. 2. [...] night however but few episodes in the hand chain maker hours were also noted 5. No symptoms reported by the patient Patient underwent implantation of a dual-chamber pacemaker in August 05, 2023 with no complications. Patient states that so far he has not had any more syncopal episodes but he still noticing edema inthe right or left upper extremity for the last 2 days. Today actually he feels much better. Pendingultrasound of the left upper extremity. Past Medical History Past Medical History: Diagnosis Date Arrhythmia CHF (congestive heart failure) ([facility]) COPD (chronic obstructive pulmonary disease) ([facility]) Hypertension Social History Social History Tobacco [...] breakfast cetirizine (ZYRTEC) 10 mg, oral, Nightly eaivnnjzcmz-cwuumntqd-fdmeahfm (TRELEGY-ELLIPTA) 100-62.5-25 mcg blister with device 1 [...] or a CTA. I was able also tofind with care everywhere the result of coronary [...] to prepare this document. documented in this [facility] Work Phone: 1(663) 981-671004-03-2024 Instructions* Patient Instructions* Vero Mccarthy LPN - 08/10/2023 12:45 PM [...] Dr. Amador Son MD [facility] Work Phone: [phone]) 508-922103-29-2024 Nurse Note* Ronda Souza RN - 08/05/2023 7:45 PM EDT Patient discharge instructions reviewed with patient and , verbalized understanding. Lt chest dressing remains dry/intact, no hematoma, no ecchymosis. Patient able to teachback site care instructions, follow up appointments. IV x2 removed and patient discharged to home via w/c. [facility]29-[facility] Nurse Note* Ronda Souza RN - 08/05/2023 7:45 PM EDT Patient discharge instructions reviewed with patient and , verbalized understanding. Lt chest dressing remains dry/intact, no hematoma, no ecchymosis. Patient able to teachback site care instructions, follow up appointments. IV x2 removed and patient discharged to home via w/c. * Ronda Souza RN - 08/05/2023 7:20 PM EDT Patient sitting up in chair, denies any complaints of incisional pain. Lt upper chest incision remains dry/intact. Will begin discharge instructions. * Ronda Souza RN - 08/05/2023 6:30 PM EDT Patient ambulated to BR, gait steady. Pacer rep has already met with patient and . Lt upper chest dressing remains dry/intact. Lt arm in immobilizer and ice pack over site. * Ramu Vidal RN - 08/05/2023 3:20 PM EDT Sterling from [employer] in room speaking to Pt and SO educating on home device monitor. * Ramu Vidal RN - 08/05/2023 1:25 PM EDT Pt returned to room after echocardiogram. Denies needs at this time. documented in this [facility] Work Phone: [phone] Nurse Note* Ronda Souza RN - 08/05/2023 7:20 PM EDT Patient sitting up in chair, denies any complaints of incisional pain. Lt upper chest incision remains dry/intact. Will begin discharge instructions. [facility] Work Phone: [phone] Nurse Note* Ronda Souza RN - 08/05/2023 6:30 PM EDT Patient ambulated to BR, gait steady. Pacer rep has already met with patient and . Lt upper chest dressing remains dry/intact. Lt arm in immobilizer and ice pack over site. [facility] Work Phone: [phone] Note* Significant Event - Ramu Vidal RN - 08/05/2023 5:10 PM EDT Post EKG and CXR performed at bedside. Pt denies needs at this time. Left chest remains soft and stable with no hematoma or oozing. [facility] Work Phone: 1([phone]) 471-435503-29-2024 Miscellaneous Notes* Significant Event - Ramu Vidal RN - 08/05/2023 5:10 PM EDT Post EKG and CXR performed at bedside. Pt denies needs at this time. Left chest remains soft and stable with no hematoma or oozing. * Significant Event - Ramu Vidal RN - 08/05/2023 4:44 PM EDT Upon arrival to room focused assessment performed and WDL. Left chest soft and stable with no hematoma or oozing, mepilex dressing in place, immobilizer on LUE. Educated Pt on current restrictions d/t pacemaker implantation, he states understanding. Pt given ice pack for chest and eating turkey sandwich box/drinking water and soda. Pt denies further needs at this time. * Pre-Sedation Documentation - Amador Son MD - 08/05/2023 4:40 PM EDT Sedation Plan ASA 2 Mallampati class: II. Risks, benefits, and alternatives discussed with patient. documented in this [facility] Work Phone: [phone]) 888-353803-29-2024 Hospital Discharge instructions* Discharge Instructions* CHIDI Ferreira - 08/05/2023 5:00 PM EDT Images from [...] your arm above shoulder level. Do not molded goods spot picker items that weigh greater than 10 [...] have been instructed by the device company sales solutions representative regarding remote home monitoring. There are [...] and appear on your After Visit Summary. * Attachments The following attachments cannot be sent through Care Everywhere. * Pacemaker Insertion Discharge Instructions (Luxembourgish) documented in this [facility] Work Phone: [phone]) [phone] Note* Significant Event - Ramu Vidal RN - 08/05/2023 4:44 PM EDT Upon arrival to room focused assessment performed and WDL. Left chest soft and stable with no hematoma or oozing, mepilex dressing in place, immobilizer on LUE. Educated Pt on current restrictions d/t pacemaker implantation, he states understanding. Pt given ice pack for chest and eating turkey sandwich box/drinking water and soda. Pt denies further needs at this time. [facility] Work Phone: [phone]) [phone] NoteTable formatting from the original result was not included. Procedure [...] of infection. The patient should call the solutions development analyst immediately if symptoms recur, or for any problems. The patient has been instructed accordingly. 2. Follow up with NO office in seven days for post-operative wound [...] model number W1 DR 017 number [id number]. Right atrial lead [employer] 5076/45 serial number [id number] 8 mm [id number]. Imp (more content not included)...[id number] Note* Pre-Sedation Documentation - Amador Son MD - 08/05/2023 4:40 PM EDT Sedation Plan ASA 2 Mallampati class: II. Risks, benefits, and alternatives discussed with patient. [facility] Work Phone: [phone] Attending History and physical note* Amador Son MD - 08/05/2023 3:32 PM EDT H&P reviewed. The patient was examined and [...] hypertension with tobacco use and COPD. Patient wasevaluated by cardiology service since January 2022 for bradycardia. Patient had an evaluation forshortness of breath and his stress test showed questionable inferior wall ischemia. At some point he had some evaluation in [place] that shows no significant obstructive coronary disease [...] Agatston score of 122 which places the patientbetween the 50th and 75th percentile rank. 2. [...] night however but few episodes in the hand chain maker hours were also noted 5. No symptoms [...] breakfast cetirizine (ZYRTEC) 10 mg, oral, Nightly tvewsnqyoqf-bqhvnaqxy-qpkxqgyk (TRELEGY-ELLIPTA) 100-62.5-25 mcg blister with device 1 [...] or a CTA. I was able also tofind with care everywhere the result of coronary [...] software was utilized to prepare this document. [facility] Work Phone: [phone]) 871-191003-29-2024 History and physical note* Amador Son MD - 08/05/2023 3:32 PM EDT H&P reviewed. The patient was examined and [...] hypertension with tobacco use and COPD. Patient wasevaluated by cardiology service since January 2022 for bradycardia. Patient had an evaluation forshortness of breath and his stress test showed questionable inferior wall ischemia. At some point he had some evaluation in [place] that shows no significant obstructive coronary disease [...] Agatston score of 122 which places the patientbetween the 50th and 75th percentile rank. 2. [...] night however but few episodes in the hand chain maker hours were also noted 5. No symptoms [...] breakfast cetirizine (ZYRTEC) 10 mg, oral, Nightly hspckaevmwq-yxkfrgdgh-inetzzle (TRELEGY-ELLIPTA) 100-62.5-25 mcg blister with device 1 [...] or a CTA. I was able also tofind with care everywhere the result of coronary [...] to prepare this document. documented in this [facility] Work Phone: [phone] Nurse Note* Ramu Vidal RN - 08/05/2023 3:20 PM EDT Sterling from [employer] in room speaking to Pt and SO educating on home device monitor. [facility]-29-[facility] Nurse Note* Ramu Vidal RN - 08/05/2023 1:25 PM EDT Pt returned to room after echocardiogram. Denies needs at this time. [facility] Work Phone: [phone] 802-819403-15-2024 History of Present illness Narrative* Amador Son MD - 07/22/2023 1:45 PM EDT CARDIOLOGY OFFICE VISIT CHIEF COMPLAINT Chief Complaint Patient presents with New Patient Visit Pt is here today as a new patient from Dr. Ty HISTORY OF PRESENT ILLNESS HPI 58-year-old male with a past medical history of hypertension with tobacco use and COPD. Patient wasevaluated by cardiology service since January 2022 for bradycardia. Patient had an evaluation forshortness of breath and his stress test showed questionable inferior wall ischemia. At some point he had some evaluation in [place] that shows no significant obstructive coronary disease [...] Agatston score of 122 which places the patientbetween the 50th and 75th percentile rank. 2. [...] night however but few episodes in the hand chain maker hours were also noted 5. No symptoms [...] breakfast cetirizine (ZYRTEC) 10 mg, oral, Nightly sbzyebeiqrf-fytadosje-dklyucnc (TRELEGY-ELLIPTA) 100-62.5-25 mcg blister with device 1 puff, inhalation, Use as directed furosemide (LASIX) 40 mg, oral, 2 times daily gabapentin (NEURONTIN) 300 mg, oral, Daily nabumetone (RELAFEN) 500 mg, oral, 2 times daily omeprazole (PRILOSEC) 40 mg, oral, Daily oxyCODONE-acetaminophen (Percocet) 7.5-325 mg tablet 1 tablet, oral, Every 6 hours PRN oxygen (O2) gas therapy 2l at bedtime Cadenceir 10 mg, oral, Nightly REVIEW OF SYSTEMS [...] or a CTA. I was able also tofind with care everywhere the result of coronary [...] to prepare this document. documented in this [facility] Work Phone: [phone]) 221-279003-15-2024 Instructions* Patient Instructions* Jazz Flynn RN - 07/22/2023 1:45 PM [...] DR. AMADOR SON MD documented in this encounterOhio[facility] Work Phone: [phone] NoteCONSULTATION PROCEDURE DATE: 07/20/2022 Procedure was performed in [...] well as right medial portion of his leg.[facility] [id number] NoteCONSULTATION CONSULTATION DATE: 05/07/2022 HISTORY OF PRESENT ILLNESS: [...] patient in three months' time unless otherwise indicated.[facility] [id number] NoteCONSULTATION CONSULTATION DATE: 01/14/2022 HISTORY OF PRESENT ILLNESS: [...] it was recommended that he see a sericulture teacher, which he did do. He did a Holter monitor study and is following up with his sericulture teacher on 01/28/2022. Current medications include gabapentin [...] indicated. Patient agrees with the plan of care.[facility] [id number] NoteCONSULTATION CONSULTATION DATE: 11/19/2021 This is a 56-year-old [...] to S1. Activities such as standing, walking, hand chain maker and evening hours, stairs, bending and physical [...] be followed up in the clinic post-procedure. [facility] Signed and Approved by: YOLA COLMENARES . 11/27/2021 14:13:00[facility]06-16-2022 NoteCONSULTATION CONSULTATION DATE: 10/22/2021 HISTORY OF PRESENT ILLNESS: [...] patient agrees with the plan of care. [facility] Signed and Approved by: YOLA COLMENARES . 11/04/2021 16:23:00[facility]05-26-2022 NoteCONSULTATION CONSULTATION DATE: 10/01/2021 HISTORY OF PRESENT ILLNESS: [...] shape. He has seen Dr. Nunn in [place] in the past regarding his back, and [...] Patient agrees with the plan of care. [facility] Signed and Approved by: YOLA COLMENARES . 10/08/2021 16:01:00[facility]04-25-2021 NoteMicrobiology PROCEDURE: Blood Culture Charcoal [R1] SOURCE: Blood BODY SITE: Arm L COLLECTED DATE/TIME: 08/24/2020 01:07 EDT RECEIVED DATE/TIME: 08/24/2020 03:43 EDT START DATE/TIME: 08/24/2020 03:43 EDT FREE TEXT SOURCE: Peripheral vein site #[address], David Palacio MD, David FINAL REPORTS Final Report [] Verified Date/Time: 08/31/2020 07:00 EDT No growth at 7 days. Performing Locations R1: This test was performed at: [facility], [address] [place] [address], [address] , , Mpwgwk [facility] CenterComment on above:Performed By: #### [id number] ####[facility] [address] [place], [place] [id number] NoteMicrobiology PROCEDURE: Blood Culture Charcoal [R1] SOURCE: Blood BODY SITE: Arm R COLLECTED DATE/TIME: 08/24/2020 00:35 EDT RECEIVED DATE/TIME: 08/24/2020 03:42 EDT START DATE/TIME: 08/24/2020 03:42 EDT FREE TEXT SOURCE: Peripheral vein site #[address], David Palacio MD, David FINAL REPORTS Final Report [] Verified Date/Time: 08/31/2020 07:00 EDT No growth at 7 days. Performing Locations R1: This test was performed at: [facility], [address] [place] [address], [address] [place] [address], MogsrdKettering Health SpringfieldComment on above:Performed By: #### [id number] ####[facility] [address] [place], [place] [address]Ffwstifzyd note* Diagnosis 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 Sinus bradycardia Other specified cardiac dysrhythmias Establishing care with new doctor, encounter for BMI 34.0-34.9,adult Sick sinus syndrome (CMS/HCC) Sinoatrial node dysfunction Simple chronic bronchitis (CMS/HCC) Simple chronic bronchitis Current smoker Other fatigue Preoperative cardiovascular examination Pre-operative cardiovascular examination documented in this encounter [facility] Work Phone: Evaluation note* Diagnosis Other [...] dysfunction Other fatigue documented in this encounter [facility] Work Phone: Evaluation note* Diagnosis Localized swelling on left hand S/P placement of cardiac pacemaker 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 Abnormal stress test Other nonspecific abnormal cardiovascular system function study Sinus bradycardia Other specified cardiac dysrhythmias Sick sinus syndrome (CMS/HCC) Sinoatrial node dysfunction Essential hypertension, benign BMI 34.0-34.9,adult Current smoker documented in this encounter [facility] Work Phone: Evaluation note* Diagnosis Localized swelling on left hand S/P placement of cardiac pacemaker documented in this encounter [facility] Work Phone: Evaluation note* Diagnosis Cardiac pacemaker in situ Sinoatrial node dysfunction (Multi) Sinoatrial node dysfunction documented in this encounter [facility] Work Phone: Evaluation note* Diagnosis Cardiac pacemaker in situ Sinoatrial node dysfunction (Multi) Sinoatrial node dysfunction documented in this encounter [facility] Work Phone: Evaluation note* Diagnosis Type [...] lumbosacral intervertebral disc [facility] HealthcareEvaluation noteNo assessment information availableDoctors Hospital Work Phone: Evaluation note* Diagnosis MRI [...] (pediatric) Current smoker documented in this encounter [facility] Work Phone: Evaluation note* Diagnosis Pacemaker Cardiac pacemaker in situ documented in this encounter [facility] Work Phone: Evaluation note* Diagnosis Type [...] serious comorbidity and body mass index (BMI) of37.0 to 37.9 in adult (CMS/HCC) documented in this encounter [facility] Healthcare[facility]* Diagnosis Cardiac pacemaker in situ Sinoatrial node dysfunction (Multi) Sinoatrial node dysfunction documented in this encounter [facility] Work Phone: Evaluation note* Diagnosis Degeneration of lumbar intervertebral disc Degeneration of lumbar or lumbosacral intervertebral disc documented in this encounter [facility] HealthcareEvaluation note* Diagnosis Type 2 diabetes mellitus [...] examination of urine documented in this encounter [facility] HealthcareEvaluation note* Diagnosis Type 2 diabetes mellitus [...] serious comorbidity and body mass index (BMI) of37.0 to 37.9 in adult (CMS/HCC) Degeneration of lumbar intervertebral disc Degeneration of lumbar or lumbosacral intervertebral disc documented in this encounter [facility] HealthcareEvaluation note* Diagnosis Cardiac pacemaker in situ- Primary Sick sinus syndrome (Multi) Sinoatrial node dysfunction MRI safe cardiac pacemaker in situ Abnormal EKG Nonspecific abnormal electrocardiogram (ECG) (EKG) Chronotropic incompetence Other specified conduction disorder Sinoatrial node dysfunction (Multi) Sinoatrial node dysfunction Sinus bradycardia Other specified cardiac dysrhythmias Current smoker BMI 37.0-37.9, adult documented in this encounter [facility] Work Phone: Evaluation note* Diagnosis Sinus bradycardia Other specified cardiac dysrhythmias Sick sinus syndrome (Multi) Sinoatrial node dysfunction Chronotropic incompetence Other specified conduction disorder MRI safe cardiac pacemaker in situ documented in this encounter [facility] Work Phone: Evaluation note* Diagnosis Type [...] serious comorbidity and body mass index (BMI) of37.0 to 37.9 in adult (CMS/HCC) Degeneration of lumbar intervertebral disc Degeneration of lumbar or lumbosacral intervertebral disc documented in this encounter [facility] HealthcareEvaluation note* Diagnosis Type 2 diabetes mellitus [...] serious comorbidity and body mass index (BMI) of37.0 to 37.9 in adult (CMS/HCC) Degeneration of lumbar intervertebral disc Degeneration of lumbar or lumbosacral intervertebral disc documented in this encounter [facility] HealthcareEvaluation note* Diagnosis Type 2 diabetes mellitus [...] hyperglycemia, without long-term current use of insulin ([facility]/HCC)- Primary Essential hypertension, benign (CMS/HCC) Essential hypertension, benign Chronic diastolic heart failure (CMS/HCC) Chronic diastolic heart failure DDD (degenerative disc disease), lumbar Degeneration of lumbar or lumbosacral intervertebral disc Primary osteoarthritis of right hip Chronic obstructive pulmonary disease, unspecified COPD type (CMS/HCC) Chronic pain of both shoulders Type 2 diabetes mellitus with other specified complication, without long-term current use of insulin ([facility]) Vasculogenic erectile dysfunction, unspecified vasculogenic erectile dysfunction type Type 2 diabetes mellitus with diabetic peripheral angiopathy without gangrene, without long-term current use of insulin ([facility]) Peripheral vascular disease, unspecified (I73.9) Peripheral vascular [...] hyperglycemia, without long-term current use of insulin ([facility]) Essential hypertension, benign (CMS/HCC) Essential hypertension, benign Class 2 severe obesity due to excess calories with serious comorbidity and body mass index (BMI) of37.0 to 37.9 in adult ([facility]) Chronic obstructive pulmonary disease with acute exacerbation (CMS/[facility])- Primary Chronic hypoxic respiratory failure (CMS/[facility]) Class 2 severe obesity due to excess calories with serious comorbidity and body mass index (BMI) of36.0 to 36.9 in adult ([facility]) Essential hypertension, benign (CMS/HCC) Essential hypertension, benign documented in this encounter [facility] HealthcareEvaluation note* Diagnosis Sick sinus syndrome (Multi)- Primary Sinoatrial node dysfunction Chronotropic incompetence Other specified conduction disorder Peripheral vascular disease, unspecified ([facility]) Peripheral vascular disease, unspecified Pacemaker Cardiac pacemaker in situ Essential hypertension, benign Sinus bradycardia Other specified cardiac dysrhythmias Hyperlipidemia, unspecified hyperlipidemia type Dyspnea on exertion Other dyspnea and respiratory abnormality BMI 37.0-37.9, adult Former smoker Personal history of tobacco use, presenting hazards to health Mild coronary artery disease documented in this encounter [facility] Work Phone: Evaluation note* Diagnosis Right leg pain- Primary Pain in soft tissues of limb Tobacco abuse Tobacco use disorder Class 3 severe obesity due to excess calories with serious comorbidity in adult, unspecified BMI ([facility]) Left inguinal hernia Inguinal hernia without mention of obstruction or gangrene, unilateral or unspecified, (not specified as recurrent) Claudication ([facility]-HCC) Unspecified peripheral vascular disease [facility] Diagnosis Claudication ([facility])- Primary Unspecified peripheral vascular disease [facility] encounter [facility]* Diagnosis Type 2 diabetes [...] hyperglycemia, without long-term current use of insulin (/HCC) Essential hypertension, benign (CMS/HCC) Essential hypertension, benign Class 2 severe obesity due to excess calories with serious comorbidity and body mass index (BMI) of37.0 to 37.9 in adult ([facility]) Chronic obstructive pulmonary disease with acute exacerbation (CMS/[facility])- Primary Chronic hypoxic respiratory failure (CMS/[facility]) Class 2 severe obesity due to excess calories with serious comorbidity and body mass index (BMI) of36.0 to 36.9 in adult ([facility]) Essential hypertension, benign (CMS/HCC) Essential hypertension, benign Degeneration of lumbar intervertebral disc Degeneration of lumbar or lumbosacral intervertebral disc documented in this encounter [facility]* Diagnosis Type 2 diabetes mellitus with hyperglycemia, without long-term current use of insulin ([facility]/HCC)- Primary Essential hypertension, benign (CMS/HCC) Essential hypertension, benign Chronic diastolic heart failure (CMS/HCC) Chronic diastolic heart failure DDD (degenerative disc disease), lumbar Degeneration of lumbar or lumbosacral intervertebral disc Dyslipidemia ([facility]/HCC) Other and unspecified hyperlipidemia Screening PSA (prostate [...] complication, without long-term current use of insulin ([facility]) Vasculogenic erectile dysfunction, unspecified vasculogenic erectile dysfunction type Type 2 diabetes mellitus with diabetic peripheral angiopathy without gangrene, without long-term current use of insulin ([facility]) Peripheral vascular disease, unspecified (I73.9) Peripheral vascular disease, unspecified Type 2 diabetes mellitus with hyperglycemia, without long-term current use of insulin ([facility]/HCC)- Primary Essential hypertension, benign ([facility]) Essential hypertension, benign Chronic diastolic heart failure ([facility]) Chronic diastolic heart failure Chronic obstructive pulmonary disease, unspecified COPD type (CMS/[facility]) DDD (degenerative disc disease), lumbar Degeneration of lumbar or lumbosacral intervertebral disc Primary osteoarthritis of right hip Body mass index (BMI) 35.0-35.9, adult Dysuria- Primary Acute prostatitis Pyuria Other nonspecific finding on examination of urine Medicare annual wellness visit, subsequent- Primary Type 2 diabetes mellitus with hyperglycemia, without long-term current use of insulin ([facility]) Essential hypertension, benign ([facility]) Essential hypertension, benign Class 2 severe obesity due to excess calories with serious comorbidity and body mass index (BMI) of37.0 to 37.9 in adult ([facility]) Chronic obstructive pulmonary disease with acute exacerbation ([facility])- Primary Chronic hypoxic respiratory failure ([facility]) Class 2 severe obesity due to excess calories with serious comorbidity and body mass index (BMI) of36.0 to 36.9 in adult ([facility]) Essential hypertension, benign (CMS/[facility]) Essential hypertension, benign Type 2 diabetes mellitus with hyperglycemia, without long-term current use of insulin ([facility])- Primary Essential hypertension, benign ([facility]) Essential hypertension, benign Chronic diastolic heart failure ([facility]) Chronic diastolic heart failure Primary osteoarthritis of right hip Degeneration of intervertebral disc of lumbar region with discogenic back pain Chronic obstructive pulmonary disease with acute exacerbation ([facility]) Peripheral vascular disease, unspecified ([facility]) Peripheral vascular disease, unspecified Class 2 severe obesity due to excess calories with serious comorbidity and body mass index (BMI) of38.0 to 38.9 in adult ([facility]) Type 2 diabetes mellitus with other specified complication ([facility]) Male erectile dysfunction, unspecified Type 2 diabetes mellitus with diabetic peripheral angiopathy without gangrene ([facility]) documented in this encounter [facility]* Diagnosis Type 2 diabetes mellitus [...] complication, without long-term current use of insulin Vasculogenic erectile dysfunction, unspecified vasculogenic erectile dysfunction [...] serious comorbidity and body mass index (BMI) of37.0 to 37.9 in adult (CMS/HCC) Chronic obstructive pulmonary disease with acute exacerbation (CMS/HCC)- Primary Chronic hypoxic respiratory failure (CMS/HCC) Class 2 severe obesity due to excess calories with serious comorbidity and body mass index (BMI) of36.0 to 36.9 in adult (CMS/HCC) Essential hypertension, benign (CMS/HCC) Essential hypertension, benign Type 2 diabetes mellitus with hyperglycemia, without long-term current use of insulin (CMS/HCC)- Primary Essential hypertension, benign (CMS/HCC) Essential hypertension, benign Chronic diastolic heart failure (CMS/HCC) Chronic diastolic heart failure Primary osteoarthritis of right hip Degeneration of intervertebral disc of lumbar region with discogenic back pain Chronic obstructive pulmonary disease with acute exacerbation (CMS/HCC) Peripheral vascular disease, unspecified (CMS/HCC) Peripheral vascular disease, unspecified Class 2 severe obesity due to excess calories with serious comorbidity and body mass index (BMI) of38.0 to 38.9 in adult (CMS/HCC) Type 2 diabetes mellitus with other specified complication Male erectile dysfunction, unspecified Type 2 diabetes mellitus with diabetic peripheral angiopathy without gangrene (CMS/HCC) Degeneration of lumbar intervertebral disc Degeneration of lumbar or lumbosacral intervertebral disc documented in this encounter [facility]* Diagnosis Cardiac pacemaker in situ documented in this encounter [facility] Work Phone: Evaluation note* Diagnosis Type [...] complication, without long-term current use of insulin Vasculogenic erectile dysfunction, unspecified vasculogenic erectile dysfunction type Type 2 diabetes mellitus with diabetic peripheral angiopathy without gangrene, without long-term current use of insulin ([facility]) Peripheral vascular disease, unspecified (I73.9) Peripheral vascular disease, unspecified Type 2 diabetes mellitus with hyperglycemia, without long-term current use of insulin ([facility])- Primary Essential hypertension, benign ([facility]) Essential hypertension, benign Chronic diastolic heart failure ([facility]) Chronic diastolic heart failure Chronic obstructive pulmonary disease, unspecified COPD type ([facility]) DDD (degenerative disc disease), lumbar Degeneration of lumbar or lumbosacral intervertebral disc Primary osteoarthritis of right hip Body mass index (BMI) 35.0-35.9, adult Dysuria- Primary Acute prostatitis Pyuria Other nonspecific finding on examination of urine Medicare annual wellness visit, subsequent- Primary Type 2 diabetes mellitus with hyperglycemia, without long-term current use of insulin ([facility]) Essential hypertension, benign ([facility]) Essential hypertension, benign Class 2 severe obesity due to excess calories with serious comorbidity and body mass index (BMI) of37.0 to 37.9 in adult ([facility]) Chronic obstructive pulmonary disease with acute exacerbation ([facility])- Primary Chronic hypoxic respiratory failure ([facility]) Class 2 severe obesity due to excess calories with serious comorbidity and body mass index (BMI) of36.0 to 36.9 in adult ([facility]) Essential hypertension, benign ([facility]) Essential hypertension, benign Type 2 diabetes mellitus with hyperglycemia, without long-term current use of insulin ([facility])- Primary Essential hypertension, benign ([facility]) Essential hypertension, benign Chronic diastolic heart failure ([facility]) Chronic diastolic heart failure Primary osteoarthritis of right hip Degeneration of intervertebral disc of lumbar region with discogenic back pain Chronic obstructive pulmonary disease with acute exacerbation ([facility]) Peripheral vascular disease, unspecified ([facility]) Peripheral vascular disease, unspecified Class 2 severe obesity due to excess calories with serious comorbidity and body mass index (BMI) of38.0 to 38.9 in adult ([facility]) Type 2 diabetes mellitus with other specified complication Male erectile dysfunction, unspecified Type 2 diabetes mellitus with diabetic peripheral angiopathy without gangrene ([facility]) Carpal tunnel syndrome, bilateral upper limbs Carpal tunnel syndrome documented in this encounter [facility]* Diagnosis Type 2 diabetes mellitus with hyperglycemia, without long-term current use of insulin (HCC)- Primary Essential hypertension, benign Essential hypertension, benign Chronic diastolic heart failure (HCC) Chronic diastolic heart failure DDD (degenerative disc disease), lumbar Degeneration of lumbar or lumbosacral intervertebral disc Dyslipidemia Other and unspecified hyperlipidemia Screening PSA (prostate specific antigen) Special screening for malignant neoplasm of prostate Encounter for long-term (current) use of medications Encounter for long-term (current) use of other medications Obesity (BMI 30-39.9) Primary osteoarthritis of right hip Type 2 diabetes mellitus with hyperglycemia, without long-term current use of insulin (HCC)- Primary Essential hypertension, benign Essential hypertension, benign Chronic diastolic heart failure (HCC) Chronic diastolic heart failure DDD (degenerative disc disease), lumbar Degeneration of lumbar or lumbosacral intervertebral disc Primary osteoarthritis of right hip Chronic obstructive pulmonary disease, unspecified COPD type (HCC) Chronic pain of both shoulders Type 2 diabetes mellitus with other specified complication, without long-term current use of insulin (HCC) Vasculogenic erectile dysfunction, unspecified vasculogenic erectile dysfunction type Type 2 diabetes mellitus with diabetic peripheral angiopathy without gangrene, without long-term current use of insulin (HCC) Peripheral vascular disease, unspecified (I73.9) Peripheral vascular disease, unspecified Type 2 diabetes mellitus with hyperglycemia, without long-term current use of insulin (HCC)- Primary Essential hypertension, benign Essential hypertension, benign Chronic diastolic heart failure (HCC) Chronic diastolic heart failure Chronic obstructive pulmonary disease, unspecified COPD type (HCC) DDD (degenerative disc disease), lumbar Degeneration of lumbar or lumbosacral intervertebral disc Primary osteoarthritis of right hip Body mass index (BMI) 35.0-35.9, adult Dysuria- Primary Acute prostatitis Pyuria Other nonspecific finding on examination of urine Medicare annual wellness visit, subsequent- Primary Type 2 diabetes mellitus with hyperglycemia, without long-term current use of insulin (HCC) Essential hypertension, benign Essential hypertension, benign Class 2 severe obesity due to excess calories with serious comorbidity and body mass index (BMI) of37.0 to 37.9 in adult ([facility]-HCC) Chronic obstructive pulmonary disease with acute exacerbation (HCC)- Primary Chronic hypoxic respiratory failure (HCC) Class 2 severe obesity due to excess calories with serious comorbidity and body mass index (BMI) of36.0 to 36.9 in adult ([facility]) Essential hypertension, benign Essential hypertension, benign Type 2 diabetes mellitus with hyperglycemia, without long-term current use of insulin (HCC)- Primary Essential hypertension, benign Essential hypertension, benign Chronic diastolic heart failure (HCC) Chronic diastolic heart failure Primary osteoarthritis of right hip Degeneration of intervertebral disc of lumbar region with discogenic back pain Chronic obstructive pulmonary disease with acute exacerbation (HCC) Peripheral vascular disease, unspecified Class 2 severe obesity due to excess calories with serious comorbidity and body mass index (BMI) of38.0 to 38.9 in adult ([facility]) Type 2 diabetes mellitus with other specified complication (HCC) Male erectile dysfunction, unspecified Type 2 diabetes mellitus with diabetic peripheral angiopathy without gangrene (HCC) Degeneration of lumbar intervertebral disc Degeneration of lumbar or lumbosacral intervertebral disc documented in this encounter [facility]* Diagnosis Type 2 diabetes mellitus with hyperglycemia, without long-term current use of insulin (HCC)- Primary Essential hypertension, benign Essential hypertension, benign Chronic diastolic heart failure (HCC) Chronic diastolic heart failure DDD (degenerative disc disease), lumbar Degeneration of lumbar or lumbosacral intervertebral disc Dyslipidemia Other and unspecified hyperlipidemia Screening PSA (prostate specific antigen) Special screening for malignant neoplasm of prostate Encounter for long-term (current) use of medications Encounter for long-term (current) use of other medications Obesity (BMI 30-39.9) Primary osteoarthritis of right hip Type 2 diabetes mellitus with hyperglycemia, without long-term current use of insulin (HCC)- Primary Essential hypertension, benign Essential hypertension, benign Chronic diastolic heart failure (HCC) Chronic diastolic heart failure DDD (degenerative disc disease), lumbar Degeneration of lumbar or lumbosacral intervertebral disc Primary osteoarthritis of right hip Chronic obstructive pulmonary disease, unspecified COPD type (HCC) Chronic pain of both shoulders Type 2 diabetes mellitus with other specified complication, without long-term current use of insulin (HCC) Vasculogenic erectile dysfunction, unspecified vasculogenic erectile dysfunction type Type 2 diabetes mellitus with diabetic peripheral angiopathy without gangrene, without long-term current use of insulin (HCC) Peripheral vascular disease, unspecified (I73.9) Peripheral vascular disease, unspecified Type 2 diabetes mellitus with hyperglycemia, without long-term current use of insulin (HCC)- Primary Essential hypertension, benign Essential hypertension, benign Chronic diastolic heart failure (HCC) Chronic diastolic heart failure Chronic obstructive pulmonary disease, unspecified COPD type (HCC) DDD (degenerative disc disease), lumbar Degeneration of lumbar or lumbosacral intervertebral disc Primary osteoarthritis of right hip Body mass index (BMI) 35.0-35.9, adult Medicare annual wellness visit, subsequent- Primary Type 2 diabetes mellitus with hyperglycemia, without long-term current use of insulin (HCC) Essential hypertension, benign Essential hypertension, benign Class 2 severe obesity due to excess calories with serious comorbidity and body mass index (BMI) of37.0 to 37.9 in adult [place] [place] Chronic obstructive pulmonary disease with acute exacerbation (HCC)- Primary Chronic hypoxic respiratory failure (HCC) Class 2 severe obesity due to excess calories with serious comorbidity and body mass index (BMI) of36.0 to 36.9 in adult [place] [place] Essential hypertension, benign Essential hypertension, benign Type 2 diabetes mellitus with hyperglycemia, without long-term current use of insulin (HCC)- Primary Essential hypertension, benign Essential hypertension, benign Chronic diastolic heart failure (HCC) Chronic diastolic heart failure Primary osteoarthritis of right hip Degeneration of intervertebral disc of lumbar region with discogenic back pain Chronic obstructive pulmonary disease with acute exacerbation (HCC) Peripheral vascular disease, unspecified Class 2 severe obesity due to excess calories with serious comorbidity and body mass index (BMI) of38.0 to 38.9 in adult [place] [place] Type 2 diabetes mellitus with other specified complication (HCC) Male erectile dysfunction, unspecified Type 2 diabetes mellitus with diabetic peripheral angiopathy without gangrene (HCC) Type 2 diabetes mellitus with hyperglycemia, without [...] index (BMI) of39.0 to 39.9 in adult [place] [place] Encounter for long-term (current) use of medications Encounter for long-term (current) use of other medications Screening PSA (prostate specific antigen) Special screening for malignant neoplasm of prostate Vitamin D insufficiency Dyslipidemia Other and unspecified hyperlipidemia documented in this encounter [facility]* Diagnosis Type 2 diabetes mellitus with hyperglycemia, without long-term current use of insulin (HCC)- Primary Essential hypertension, benign Essential hypertension, benign Chronic diastolic heart failure (HCC) Chronic diastolic heart failure DDD (degenerative disc disease), lumbar Degeneration of lumbar or lumbosacral intervertebral disc Dyslipidemia Other and unspecified hyperlipidemia Screening PSA (prostate specific antigen) Special screening for malignant neoplasm of prostate Encounter for long-term (current) use of medications Encounter for long-term (current) use of other medications Obesity (BMI 30-39.9) Primary osteoarthritis of right hip Type 2 diabetes mellitus with hyperglycemia, without long-term current use of insulin (HCC)- Primary Essential hypertension, benign Essential hypertension, benign Chronic diastolic heart failure (HCC) Chronic diastolic heart failure DDD (degenerative disc disease), lumbar Degeneration of lumbar or lumbosacral intervertebral disc Primary osteoarthritis of right hip Chronic obstructive pulmonary disease, unspecified COPD type (HCC) Chronic pain of both shoulders Type 2 diabetes mellitus with other specified complication, without long-term current use of insulin (HCC) Vasculogenic erectile dysfunction, unspecified vasculogenic erectile dysfunction type Type 2 diabetes mellitus with diabetic peripheral angiopathy without gangrene, without long-term current use of insulin ([facility]) Peripheral vascular disease, unspecified (I73.9) Peripheral vascular disease, unspecified Type 2 diabetes mellitus with hyperglycemia, without long-term current use of insulin (HCC)- Primary Essential hypertension, benign Essential hypertension, benign Chronic diastolic heart failure (HCC) Chronic diastolic heart failure Chronic obstructive pulmonary disease, unspecified COPD type (HCC) DDD (degenerative disc disease), lumbar Degeneration of lumbar or lumbosacral intervertebral disc Primary osteoarthritis of right hip Body mass index (BMI) 35.0-35.9, adult Medicare annual wellness visit, subsequent- Primary Type 2 diabetes mellitus with hyperglycemia, without long-term current use of insulin ([facility]) Essential hypertension, benign Essential hypertension, benign Class 2 severe obesity due to excess calories with serious comorbidity and body mass index (BMI) of37.0 to 37.9 in adult ([facility]) Chronic obstructive pulmonary disease with acute exacerbation (HCC)- Primary Chronic hypoxic respiratory failure (HCC) Class 2 severe obesity due to excess calories with serious comorbidity and body mass index (BMI) of36.0 to 36.9 in adult ([facility]) Essential hypertension, benign Essential hypertension, benign Type 2 diabetes mellitus with hyperglycemia, without long-term current use of insulin (HCC)- Primary Essential hypertension, benign Essential hypertension, benign Chronic diastolic heart failure (HCC) Chronic diastolic heart failure Primary osteoarthritis of right hip Degeneration of intervertebral disc of lumbar region with discogenic back pain Chronic obstructive pulmonary disease with acute exacerbation (HCC) Peripheral vascular disease, unspecified Class 2 severe obesity due to excess calories with serious comorbidity and body mass index (BMI) of38.0 to 38.9 in adult [place] [place] Type 2 diabetes mellitus with other specified complication (HCC) Male erectile dysfunction, unspecified Type 2 diabetes mellitus with diabetic peripheral angiopathy without gangrene (HCC) Type 2 diabetes mellitus with hyperglycemia, without [...] index (BMI) of39.0 to 39.9 in adult [place] [place] Encounter for long-term (current) use of medications Encounter for long-term (current) use of other medications Screening PSA (prostate specific antigen) Special screening for malignant neoplasm of prostate Vitamin D insufficiency Dyslipidemia Other and unspecified hyperlipidemia Degeneration of lumbar intervertebral disc Degeneration of lumbar or lumbosacral intervertebral disc documented in this encounter [facility]* Diagnosis Cardiac pacemaker in situ- Primary Chronotropic incompetence Other specified conduction disorder Sick sinus syndrome (Multi) Sinoatrial node dysfunction Essential hypertension, benign Pacemaker Cardiac pacemaker in situ Sinus bradycardia Other specified cardiac dysrhythmias Former smoker Personal history of tobacco use, presenting hazards to health BMI 38.0-38.9,adult documented in this encounter [facility] Work Phone: Evaluation note* Diagnosis Type 2 diabetes mellitus with hyperglycemia, without long-term current use of insulin (HCC)- Primary Essential hypertension, benign Essential hypertension, benign Chronic diastolic heart failure (HCC) Chronic diastolic heart failure DDD (degenerative disc disease), lumbar Degeneration of lumbar or lumbosacral intervertebral disc Dyslipidemia Other and unspecified hyperlipidemia Screening PSA (prostate specific antigen) Special screening for malignant neoplasm of prostate Encounter for long-term (current) use of medications Encounter for long-term (current) use of other medications Obesity (BMI 30-39.9) Primary osteoarthritis of right hip Type 2 diabetes mellitus with hyperglycemia, without long-term current use of insulin (HCC)- Primary Essential hypertension, benign Essential hypertension, benign Chronic diastolic heart failure (HCC) Chronic diastolic heart failure DDD (degenerative disc disease), lumbar Degeneration of lumbar or lumbosacral intervertebral disc Primary osteoarthritis of right hip Chronic obstructive pulmonary disease, unspecified COPD type (HCC) Chronic pain of both shoulders Type 2 diabetes mellitus with other specified complication, without long-term current use of insulin (HCC) Vasculogenic erectile dysfunction, unspecified vasculogenic erectile dysfunction type Type 2 diabetes mellitus with diabetic peripheral angiopathy without gangrene, without long-term current use of insulin (HCC) Peripheral vascular disease, unspecified (I73.9) Peripheral vascular disease, unspecified Type 2 diabetes mellitus with hyperglycemia, without long-term current use of insulin (HCC)- Primary Essential hypertension, benign Essential hypertension, benign Chronic diastolic heart failure (HCC) Chronic diastolic heart failure Chronic obstructive pulmonary disease, unspecified COPD type (HCC) DDD (degenerative disc disease), lumbar Degeneration of lumbar or lumbosacral intervertebral disc Primary osteoarthritis of right hip Body mass index (BMI) 35.0-35.9, adult Medicare annual wellness visit, subsequent- Primary Type 2 diabetes mellitus with hyperglycemia, without long-term current use of insulin (HCC) Essential hypertension, benign Essential hypertension, benign Class 2 severe obesity due to excess calories with serious comorbidity and body mass index (BMI) of37.0 to 37.9 in adult [place] Chronic obstructive pulmonary disease with acute exacerbation (HCC)- Primary Chronic hypoxic respiratory failure (HCC) Class 2 severe obesity due to excess calories with serious comorbidity and body mass index (BMI) of36.0 to 36.9 in adult [place] Essential hypertension, benign Essential hypertension, benign Type 2 diabetes mellitus with hyperglycemia, without long-term current use of insulin (HCC)- Primary Essential hypertension, benign Essential hypertension, benign Chronic diastolic heart failure (HCC) Chronic diastolic heart failure Primary osteoarthritis of right hip Degeneration of intervertebral disc of lumbar region with discogenic back pain Chronic obstructive pulmonary disease with acute exacerbation (HCC) Peripheral vascular disease, unspecified Class 2 severe obesity due to excess calories with serious comorbidity and body mass index (BMI) of38.0 to 38.9 in adult [place] Type 2 diabetes mellitus with other specified complication (HCC) Male erectile dysfunction, unspecified Type 2 diabetes mellitus with diabetic peripheral angiopathy without gangrene (HCC) Type 2 diabetes mellitus with hyperglycemia, without [...] index (BMI) of39.0 to 39.9 in adult ([facility] Encounter for long-term (current) use of medications Encounter for long-term (current) use of other medications Screening PSA (prostate specific antigen) Special screening for malignant neoplasm of prostate Vitamin D insufficiency Dyslipidemia Other and unspecified hyperlipidemia Degeneration of lumbar intervertebral disc Degeneration of lumbar or lumbosacral intervertebral disc documented in this encounter [facility]* Diagnosis Type 2 diabetes mellitus with hyperglycemia, without long-term current use of insulin (HCC)- Primary Essential hypertension, benign Essential hypertension, benign Chronic diastolic heart failure (HCC) Chronic diastolic heart failure DDD (degenerative disc disease), lumbar Degeneration of lumbar or lumbosacral intervertebral disc Dyslipidemia Other and unspecified hyperlipidemia Screening PSA (prostate specific antigen) Special screening for malignant neoplasm of prostate Encounter for long-term (current) use of medications Encounter for long-term (current) use of other medications Obesity (BMI 30-39.9) Primary osteoarthritis of right hip Type 2 diabetes mellitus with hyperglycemia, without long-term current use of insulin (HCC)- Primary Essential hypertension, benign Essential hypertension, benign Chronic diastolic heart failure (HCC) Chronic diastolic heart failure DDD (degenerative disc disease), lumbar Degeneration of lumbar or lumbosacral intervertebral disc Primary osteoarthritis of right hip Chronic obstructive pulmonary disease, unspecified COPD type (HCC) Chronic pain of both shoulders Type 2 diabetes mellitus with other specified complication, without long-term current use of insulin (HCC) Vasculogenic erectile dysfunction, unspecified vasculogenic erectile dysfunction type Type 2 diabetes mellitus with diabetic peripheral angiopathy without gangrene, without long-term current use of insulin (HCC) Peripheral vascular disease, unspecified (I73.9) Peripheral vascular disease, unspecified Type 2 diabetes mellitus with hyperglycemia, without long-term current use of insulin (HCC)- Primary Essential hypertension, benign Essential hypertension, benign Chronic diastolic heart failure (HCC) Chronic diastolic heart failure Chronic obstructive pulmonary disease, unspecified COPD type (HCC) DDD (degenerative disc disease), lumbar Degeneration of lumbar or lumbosacral intervertebral disc Primary osteoarthritis of right hip Body mass index (BMI) 35.0-35.9, adult Medicare annual wellness visit, subsequent- Primary Type 2 diabetes mellitus with hyperglycemia, without long-term current use of insulin (HCC) Essential hypertension, benign Essential hypertension, benign Class 2 severe obesity due to excess calories with serious comorbidity and body mass index (BMI) of37.0 to 37.9 in adult ([facility]) Chronic obstructive pulmonary disease with acute exacerbation (HCC)- Primary Chronic hypoxic respiratory failure (HCC) Class 2 severe obesity due to excess calories with serious comorbidity and body mass index (BMI) of36.0 to 36.9 in adult [place] Essential hypertension, benign Essential hypertension, benign Type 2 diabetes mellitus with hyperglycemia, without long-term current use of insulin (HCC)- Primary Essential hypertension, benign Essential hypertension, benign Chronic diastolic heart failure (HCC) Chronic diastolic heart failure Primary osteoarthritis of right hip Degeneration of intervertebral disc of lumbar region with discogenic back pain Chronic obstructive pulmonary disease with acute exacerbation (HCC) Peripheral vascular disease, unspecified Class 2 severe obesity due to excess calories with serious comorbidity and body mass index (BMI) of38.0 to 38.9 in adult ([facility]) Type 2 diabetes mellitus with other specified complication (HCC) Male erectile dysfunction, unspecified Type 2 diabetes mellitus with diabetic peripheral angiopathy without gangrene (HCC) Type 2 diabetes mellitus with hyperglycemia, without [...] index (BMI) of39.0 to 39.9 in adult [place] Encounter for long-term (current) use of medications Encounter for long-term (current) use of other medications Screening PSA (prostate specific antigen) Special screening for malignant neoplasm of prostate Vitamin D insufficiency Dyslipidemia Other and unspecified hyperlipidemia Type 2 diabetes mellitus with hyperglycemia, without long-term current use of insulin (HCC)- Primary Essential hypertension, benign Essential hypertension, benign Degeneration of intervertebral disc of lumbar region with discogenic back pain and lower extremity pain Chronic diastolic heart failure (HCC) Chronic diastolic heart failure documented in this encounter [facility]* Diagnosis Cardiac pacemaker in situ documented in this encounter [facility] Work Phone: History of Present illness Narrative* Patient is here for cardiovascular evaluation for second opinion in regard to documents resting sinus bradycardia. The patient is 56-year-old with history of tobacco use and COPD was evaluated recently due to shortness of breath and his stress test showed questionable inferior wall ischemia. This led to a cardiac evaluation in [place] and its not clear to me whether [...] ischemic evaluation * 5 follow-up in [address] [facility] 600 DO Work Phone: History of Present illness Narrative* Patient is here for cardiovascular evaluation for second opinion in regard to documents resting sinus bradycardia. The patient is 56-year-old with history of tobacco use and COPD was evaluated recently due to shortness of breath and his stress test showed questionable inferior wall ischemia. This led to a cardiac evaluation in [place] and its not clear to me whether [...] ischemic evaluation * 5 follow-up in 6 [facility] Work Phone: History of Present illness Narrative* Patient is here for cardiovascular evaluation for second opinion in regard to documents resting sinus bradycardia. The patient is 56-year-old with history of tobacco use and COPD was evaluated recently due to shortness of breath and his stress test showed questionable inferior wall ischemia. This led to a cardiac evaluation in [place] and its not clear to me whether [...] ischemic evaluation * 5 follow-up in 6 [facility] Work Phone: History of Present [...] ischemic evaluation. He underwent cardiac catheterization in [place] which showed no significant obstructive disease * [...] or earlier if the need arise [facility] 600 DO Work Phone: InstructionsNot on filedocumented in this encounter [facility] N[facility] Imaging (Routine) - Pending ReviewSpecialtyDiagnoses / ProceduresReferred By ContactReferred To Contact Cardiology Diagnoses Sinus bradycardia Sick sinus syndrome (Multi) Chronotropic incompetence MRI safe cardiac pacemaker in situ Procedures Cardiac Device Check - In Clinic Naima Wright, [facility] Phone: tel: fax: Referral IDStatusReasonStart DateExpiration DateVisits RequestedVisits [id number] Review Perform Procedure [facility] Work Phone: Reason for visit Narrative* Imaging (Routine) - Pending ReviewSpecialtyDiagnoses / ProceduresReferred By ContactReferred To ContactCardiology Diagnoses Cardiac pacemaker in situ Procedures Cardiac Device Check - Remote Amador Son MD [address] [place] [address] Phone: tel: fax: Referral IDStatusReasonStart DateExpiration DateVisits RequestedVisits [id number] Review Perform Procedure [facility] Work Phone: Reason for visit Narrative* Imaging (Routine) - Pending ReviewSpecialtyDiagnoses / ProceduresReferred By ContactReferred To ContactCardiology Diagnoses Cardiac pacemaker in situ Procedures Cardiac Device Check - In Clinic Amador Son MD [address] [place] [address] Phone: tel: fax: Referral IDStatusReasonStart DateExpiration DateVisits RequestedVisits [id number] Review Perform Procedure [facility] Work Phone: Reason for visit Narrative* Imaging (Routine) - Pending ReviewSpecialtyDiagnoses / ProceduresReferred By ContactReferred To ContactCardiology Diagnoses Cardiac pacemaker in situ Procedures Cardiac Device Check - Remote Amador Son MD [address] [place] [address] Phone: tel: fax: Referral IDStatusReasonStart DateExpiration DateVisits RequestedVisits [id number] Review Perform Procedure [facility] Work Phone: Summary Purpose Family History [...] Records FoundLatest Code Status on File Code StatusDate ActivatedDate InactivatedCommentsFull Code08/05/2023 12:02 PM QuestionAnswerCommentsPlan of Care:Code Status Discussion Not CompletedDecision Maker:ProviderRationale:Patient condition does not warrant discussionCode Status Date ActivatedDate InactivatedCommentsFull Code08/05/2023 12:02 PMQuestionAnswer CommentsPlan of Care:Code Status Discussion Not CompletedDecision Maker:Provider Rationale:Patient condition does not warrant discussionCode StatusDate Activated Date InactivatedCommentsFull Code08/05/2023 12:02 PMQuestionAnswerCommentsPlan of Care:Code Status Discussion Not CompletedDecision Maker:ProviderRationale: Patient condition does not warrant discussionDate ActivatedDate Inactivated Comments08/05/2023 12:02 PMQuestionAnswerCommentsPlan of Care:* Code Status Discussion Not Completed Decision Maker:* Provider Rationale:* Patient condition does not warrant discussion Advance Directive Response Recorded Date/ Time Advance Directives No June 4:40pm Chief Complaint LILIANA MICHAELS is being seen for npv/ jenelle.LILIANA MICHAELS is being seen for npv/ jenelle.LILIANA MICHAELS is being seen for npv/ jenelle.LILIANA BRANDO is being seen for a month follow-up of. Reason for Referral SpecialtyDiagnoses / ProceduresReferred By ContactReferred To ContactCardiology Diagnoses Sinus bradycardia Chronotropic incompetence Sick sinus syndrome (CMS/HCC) Other fatigue Preoperative cardiovascular examination Procedures Transthoracic Echo Complete ME ECHO TTHRC R-T 2D W/WOM-MODE COMPL SPEC&COLR D Amador Son MD [address] [address] Referral IDStatusReasonStnewport news DateExpiration DateVisits RequestedVisits [id number] Review Perform Procedure /[id number] / ProceduresReferred By ContactReferred To Contact Diagnoses Sinus bradycardia Establishing care with new doctor, encounter for Procedures ECG 12 lead (Clinic Performed) Amador Son MD [address] [address] Referral IDStatusReasonStart DateExpiration DateVisits RequestedVisits [id number]/15/20243/181925YxeoaednqQvykvmicm / Procedures Referred By ContactReferred To ContactRadiology Diagnoses Pacemaker Procedures XR chest 2 views Ana M Kumari, IT ARCHITECT-NEGATIVE DEVELOPER [address] [facility], [address] [address] Referral IDStatusReasonStart DateExpiration DateVisits RequestedVisits [id number] Perform Procedure [id number] / ProceduresReferred By ContactReferred To ContactCardiology Diagnoses Pacemaker Procedures Cardiac Device Check - In Clinic Ana M Kumari, IT ARCHITECT-NEGATIVE DEVELOPER [address] [facility], [address] [address] Referral IDStatusReasonStart DateExpiration DateVisits RequestedVisits [id number] Review Perform Procedure [id number] / ProceduresReferred By ContactReferred To ContactCardiology Diagnoses Localized swelling on left hand S/P placement of cardiac pacemaker Procedures Vascular US upper extremity venous duplex left Naima Wright, [facility] [address] [facility], [address] [address] Referral IDStatusReasonStart DateExpiration DateVisits RequestedVisits [id number] Perform Procedure /[id number] / ProceduresReferred By ContactReferred To ContactCardiology Diagnoses Cardiac pacemaker in situ Sinoatrial node dysfunction (Multi) Procedures Cardiac Device Check - Remote Amador Son MD [address] [address] Referral IDStatusReasonStart DateExpiration DateVisits RequestedVisits [id number] Review Perform Procedure /[id number] / ProceduresReferred By ContactReferred To ContactCardiology Diagnoses Sinus bradycardia Sick sinus syndrome (Multi) Chronotropic incompetence MRI safe cardiac pacemaker in situ Procedures Cardiac Device Check - In Clinic Naima Wright APRN-NEGATIVE DEVELOPER [address] [address] Referral IDStatusReasonStart DateExpiration DateVisits RequestedVisits [id number] Review Perform Procedure [id number] / ProceduresReferred By ContactReferred To ContactCardiology Diagnoses Sick sinus syndrome (Multi) MRI safe cardiac pacemaker in situ Procedures Follow Up In Cardiology Naima Wright APRN-NEGATIVE DEVELOPER [address] [facility], [address] [address] Amador Son MD [address] [place] [address] Referral IDStatusReasonStart DateExpiration DateVisits RequestedVisits [id number]/3/20247/3/403971ZirtqgmxiUtzrdrewd / Procedures Referred By ContactReferred To Contact Diagnoses Sinus bradycardia Procedures ECG 12 lead (Clinic Performed) Naima Wright APRN-NEGATIVE DEVELOPER [address] [address] Referral IDStatusReasonStart DateExpiration DateVisits RequestedVisits [id number]/3/20247/3/637933YfagbsunoWdiryjtbz / Procedures Referred By ContactReferred To Contact Diagnoses Claudication ([facility]) Procedures Vas art doppler lwr bilat mult lev/PVR Roc Ramsey DO [address] [place] [address] Referral IDStatusReasonStart DateExpiration DateVisits RequestedVisits [id number] Review Chief Complaint and Reason for Visit Chief [...] section and content) DATE CREATED AUTHOR 03/06/2021 [facility] DATE CREATED AUTHOR AUTHOR'S ORGANIZ ATION 03/12/2021 [facility] DATE CREATED AUTHOR AUTHOR'S ORGANIZ ATION 02/16/2022 [facility] DATE CREATED AUTHOR AUTHOR'S ORGANIZ ATION 07/16/2022 [facility] DATE CREATED AUTHOR AUTHOR'S ORGANIZ ATION 07/16/2022 [facility] DATE CREATED AUTHOR AUTHOR'S ORGANIZ ATION 09/17/2022 [facility] DATE CREATED AUTHOR AUTHOR'S ORGANIZ ATION 04/03/2024 [facility] DATE CREATED AUTHOR AUTHOR'S ORGANIZ ATION 11/16/2024 [facility] DATE CREATED AUTHOR AUTHOR'S ORGANIZ ATION 12/24/2024 [facility] DATE CREATED AUTHOR AUTHOR'S ORGANIZ ATION 02/17/2025 [facility] DATE CREATED AUTHOR AUTHOR'S ORGANIZ ATION 03/03/2025 [facility] DATE CREATED AUTHOR AUTHOR'S ORGANIZ ATION 03/10/2025 [facility] Reason for Visit (unrecogniz ed section and content) ReasonCommentsNew Patient VisitPt is here today as a new patient from Dr. HdzpecialtyDiagnoses / ProceduresReferred By ContactReferred To Contact Cardiology Diagnoses Sinus bradycardia Valentino Ty MD [address] [address] Amador Son MD [address] [facility], [address] [address] Referral IDStatusReasonStart DateExpiration DateVisits RequestedVisits [id number] Specialty Services Required [id number] / ProceduresReferred By ContactReferred To Contact Diagnoses Sinus bradycardia Chronotropic incompetence Sick sinus syndrome (CMS/HCC) Other fatigue Sinus bradycardia [R00.1] Chronotropic incompetence [I45.89] Sick sinus syndrome (CMS/HCC) [I49.5] Other fatigue [R53.83] Procedures ME INS NEW/RPLCMT PRM PM W/TRANSV ELTRD ATRIAL&VENT PPM IMPLANT DUAL Amador Son MD 254 [facility] [address] [place] [address] [address] [facility] [address] [place] [address] Referral IDStatusReasonClifton DateExpiration DateVisits RequestedVisits [id number] CheckPatient is having swelling in his right handSpecialtyDiagnoses / ProceduresReferred By ContactReferred To Contact Cardiology Diagnoses Localized swelling on left hand S/P placement of cardiac pacemaker Procedures Vascular US upper extremity venous duplex left Yusuf-Naima Rodriguez E, IT ARCHITECT-NEGATIVE DEVELOPER [address] [facility], [facility] [address] [place] [address] Referral IDStatusReasonClifton DateExpiration DateVisits RequestedVisits [id number] Perform Procedure /[id number] / ProceduresReferred By ContactReferred To ContactCardiology Diagnoses Cardiac pacemaker in situ Sinoatrial node dysfunction (Multi) Procedures Cardiac Device Check - Remote Amador Son MD [address] [place] [address] [address] [place] [address] Referral IDStatusReasonStart DateExpiration DateVisits RequestedVisits [id number] Review Perform Procedure 1ReasonOnset DateCommentsMed Opemxo024ReasonOnset Date CommentsMed Znlzrv4503/30/2024easonCommentsFollow-upPt is here today following up with device checkSpecialtyDiagnoses / ProceduresReferred By ContactReferred To Contact Diagnoses Sinus bradycardia Procedures ECG 12 lead (Clinic Performed) Naima Wright, [facility] [address] [facility], [address] [address] Referral IDStatusReasonStart DateExpiration DateVisits RequestedVisits [id number]/3/20247/510257NpsbhcvlhHxuugdsrd / Procedures Referred By ContactReferred To ContactCardiology Diagnoses Pacemaker Procedures Cardiac Device Check - In Clinic Ana M Kumari, [facility] [address] [address] Referral IDStatusReasonStart DateExpiration DateVisits RequestedVisits [id number] Review Perform Procedure [id number] / ProceduresReferred By ContactReferred To ContactRadiology Diagnoses Pacemaker Procedures XR chest 2 views Ana M Kumari, [facility] [address] [facility], [address] [address] Referral IDStatusReasonStart DateExpiration DateVisits RequestedVisits [id number] Perform Procedure [id number] Annual Wellness Visit Subsequent WellnessReasonOnset DateCommentsMed Eyxaja704ReasonCommentsFollow-up3 m ReasonOnset DateCommentsMed Xoxwmj354ReasonCommentsMed RefillReason CommentsUTIReasonOnset DateCommentsMed Fecyoz2604/27/2024[facility] is [facility] today following up after 6 months with device checkSpecialtyDiagnoses / ProceduresReferred By ContactReferred To ContactCardiology Diagnoses Sick sinus syndrome (Multi) MRI safe cardiac pacemaker in situ Procedures Follow Up In Cardiology Naima Wright, IT ARCHITECT-NEGATIVE DEVELOPER Phone: tel: fax: Amador Son MD [address] [place] [address] Phone: tel: fax: Referral IDStatusReasonStart DateExpiration DateVisits RequestedVisits [id number]/3/20247/3/221168BmtohmRvadg DateCommentsMed Refill 05/28/2024ReasonOnset DateCommentsMed Ycgrxp4405/29/2024Re[facility] f/upReasonAndrew [place] [id number] / ProceduresReferred By ContactReferred To ContactCardiology Diagnoses Chronotropic incompetence Procedures Follow Up In Cardiology Valentino Ty MD [address] [place] [address] Phone: tel: fax: Valentino Ty MD [address] [place], [place] [address] Phone: tel: fax: Referral IDStatNorman Specialty Hospital – Normanasonart DateExpiration DateVisits RequestedVisits [id number]/25/20247/25/401619MfckzwXfsezouzZuepmz-bjYJHKDFA INGUINAL HERNIA, RIGHTReasonOnset DateCommentsMed Pwssht2606/26/2024ReasonOnset DateCommentsMed Jprxld9708/22/2024ReasonOnset DateCommentsMed Qnoonr0709/19/2024 ReasonOnset DateCommentsMed Panldu0710/18/2024ReasonCommentsFollow-fb5DMtz Injury SORE ON RIGHT LEGReasonOnset DateCommentsMed Wkdzig0911/15/2024ReasonComments Follow-upPatient is present for 6 month follow up with device check for Cardiac pacemaker in situ.ReasonOnset DateCommentsMed Ehoquf9412/17/2024ReasonComments Follow-upNasal Congestion Care Teams (unrecognized sec tion and content) Team MemberRelationshipSpecialtyStart DateEnd Date Ishmael Simon MD [address] [place] [address] PCP - GeneralFamily Medicine06/29/23Team MemberRelationshipSpecialtyStart DateEnd Date Ishmael Simon MD [address] [place] [address] PCP - Generalmily Medicine06/29/23Team MemberRelationshipSpecialtyStart DateEnd Date Ishmael Simon MD [address] [place] [address] PCP - GeneralFamily Medicine06/29/23Team MemberRelationshipSpecialtyStart DateEnd Date Ishmael Simon MD [address] [place] [address] PCP - GeneralFamily Medicine06/29/23Team MemberRelationshipSpecialtyStart DateEnd Date Ishmael Simon MD PCP - GeneralFamily Medicine06/29/23Team MemberRelationshipSpecialtyStart DateEnd Date Ishmael Simon MD [address] [place] [address] PCP - GeneralFamily Medicine06/29/23 Naima Wright IT ARCHITECT-NEGATIVE DEVELOPER [address] [facility], [facility] [address] [place] [address] Nurse PractitionerCardiology11/07/23Team MemberRelationshipSpecialtyStart DateEnd Date Ishmael Simon MD [address] [place] [address] PCP - GeneralFamily Medicine10/10/23 Team Status: Active Member Role Status Dates Ishmael Simon MD Primary Care Provider Active Team Status: Active Member Role Status Dates Ishmael Simon MD Primary Care Provider Active S tart: March 16, 2024 Danielle Bergeron NP-COther ProviderActiveStart: March 16, 2024 Renetta Mills MDAttending ProviderActiveStart: March 16, 2024 Team Status: Inactive Member Role Status Dates Ishmael Simno MD Primary Care Provider Active S tart: March 27, 2024 End: March 27akanksha Bergeron NP-CAttending ProviderActiveStart: March 27, 2024 End: March 27, 2024Team MemberRelationshipSpecialtyStart DateEnd Date Ishmael Simon MD [address] [place] [address] PCP - GeneralFamily Medicine06/29/23 Naima Wright, IT ARCHITECT-NEGATIVE DEVELOPER [address] [facility], [facility] [address] [place] [address] Nurse PractitionerCardiology11/07/23Team MemberRelationshipSpecialtyStart DateEnd Date Ishmael Simon MD [address] [place] [address] PCP - GeneralFamily Medicine06/29/23 Naima Wright APRN-NEGATIVE DEVELOPER [address] [facility], [place] [place] [address] Nurse PractitionerCardiology11/07/23Team MemberRelationshipSpecialtyStart DateEnd Date Ishmael Simon MD [address] [place] [address] PCP - GeneralFamily Medicine10/10/23Team MemberRelationshipSpecialtyStart DateEnd Date Ishmael Simon MD [address] [place] [address] PCP - GeneralFamily Medicine10/10/23Team MemberRelationshipSpecialtyStart DateEnd Date Ishmael Simon MD [address] [place] [address] PCP - GeneralFamily Medicine10/10/23Team MemberRelationshipSpecialtyStart DateEnd Date Ishmael Simon MD [address] [place] [address] PCP - GeneralFamily Medicine06/29/23 Naima Wright IT ARCHITECT-NEGATIVE DEVELOPER [address] [facility], [facility] [address] [place] [address] Nurse PractitionerCardiology11/07/23Team MemberRelationshipSpecialtyStart DateEnd Date Ishmael Simon MD [address] [place] [address] PCP - GeneralFamily Medicine10/10/23Team MemberRelationshipSpecialtyStart DateEnd Date Ishmael Simon MD [address] [place] [address] PCP - GeneralFamily Medicine10/10/23Team MemberRelationshipSpecialtyStart DateEnd Date Ishmael Simon MD [address] [place] [address] PCP - GeneralFamily Medicine10/10/23Team MemberRelationshipSpecialtyStart DateEnd Date Ishmael Simon MD [address] [place] [address] PCP - GeneralFamily Medicine10/10/23Team MemberRelationshipSpecialtyStart DateEnd Date Ishmael Simon MD [address] [place] [address] PCP - GeneralFamily Medicine10/10/23Team MemberRelationshipSpecialtyStart DateEnd Date Ishmael Simon MD [address] [place] [address] PCP - GeneralFamily Medicine10/10/23Team MemberRelationshipSpecialtyStart DateEnd Date Ishmael Simon MD [address] [place] [address] PCP - GeneralFamily Medicine10/10/23Team MemberRelationshipSpecialtyStart DateEnd Date Ishmael Simon MD [address] [place] [address] PCP - GeneralFamily Medicine10/10/23Team MemberRelationshipSpecialtyStart DateEnd Date Ishmael Simon MD [address] [place] [address] PCP - GeneralFamily Medicine06/29/23 Amador Son MD [address] [facility], [facility] [address] [place] [address] CardiologistElectrophysiology05/17/24Team MemberRelationshipSpecialtyStart DateEnd Date Ishmael Simon MD [address] [place] [address] PCP - Generalmily Medicine06/29/23 Amador Son MD [address] [facility], [facility] [address] [place] [address] CardiologistElectrophysiology05/17/24Team MemberRelationshipSpecialtyStart DateEnd Date Ishmael Simon MD [address] [place] [address] PCP - GeneralFamily Medicine10/10/23Team MemberRelationshipSpecialtyStart DateEnd Date Ishmael Simon MD [address] [place] [address] PCP - GeneralFamily Medicine10/10/23Team MemberRelationshipSpecialtyStart DateEnd Date Ishmael Simon MD [address] [place] [address] PCP - GeneralFamily Medicine10/10/23Team MemberRelationshipSpecialtyStart DateEnd Date Ishmael Simon MD [address] [place] [address] PCP - GeneralFamily Medicine10/10/23Team MemberRelationshipSpecialtyStart DateEnd Date Ishmael Simon MD [address] [place] [address] PCP - GeneralFamily Medicine06/29/23 Amador Son MD [address] [facility], [address] [place] [address] CardiologistElectrophysiology05/17/24Team MemberRelationshipSpecialtyStart DateEnd Date Ishmael Simon MD [address] [place] [address] PCP - GeneralFamily Medicine10/10/23Team MemberRelationshipSpecialtyStart DateEnd Date Ishmael Simon MD [address] [place] [address] PCP - GeneralFamily Medicine08/16/19Team MemberRelationshipSpecialtyStart DateEnd Date Ishmael Simon MD [address] [place] [address] PCP - GeneralFamily Medicine08/16/19Team MemberRelationshipSpecialtyStart DateEnd Date Ishmael Simon MD PCP - GeneralFamily Medicine08/16/19Team MemberRelationshipSpecialtyStart DateEnd Date Ishmael Simon MD [address] [place] [address] PCP - GeneralFamily Medicine10/10/23Team MemberRelationshipSpecialtyStart DateEnd Date Ishmael Simon MD [address] [place] [address] PCP - GeneralFamily Medicine10/10/23Team MemberRelationshipSpecialtyStart DateEnd Date Ishmael Simon MD [address] [place] [address] PCP - GeneralFamily Medicine10/10/23Team MemberRelationshipSpecialtyStart DateEnd Date Ishmael Simon MD [address] [place] [address] PCP - GeneralFamily Medicine10/10/23Team MemberRelationshipSpecialtyStart DateEnd Date Ishmael Simon MD [address] [place] [address] PCP - GeneralFamily Medicine06/29/23 Amador Son MD [address] [facility], [address] [place] [address] CardiologistElectrophysiology05/17/24Team MemberRelationshipSpecialtyStart DateEnd Date Ishmael Simon MD [address] [place] [address] PCP - GeneralFamily Medicine10/10/23Team MemberRelationshipSpecialtyStart DateEnd Date Ishmael Simon MD [address] [place] [address] PCP - GeneralFamily Medicine10/10/23Team MemberRelationshipSpecialtyStart DateEnd Date Ishmael Simon MD [address] [place] [address] PCP - GeneralFamily Medicine10/10/23Team MemberRelationshipSpecialtyStart DateEnd Date Ishmael Simon MD [address] [place] [address] PCP - GeneralFamily Medicine10/10/23Team MemberRelationshipSpecialtyStart DateEnd Date Ishmael Simon MD [address] [place] [address] PCP - GeneralFamily Medicine06/29/23 Amador Son MD [address] [facility], [address] [place] [address] CardiologistElectrophysiology05/17/24Team MemberRelationshipSpecialtyStart DateEnd Date Ishmael Simon MD [address] [place] [address] PCP - GeneralFamily Medicine10/10/23Team MemberRelationshipSpecialtyStart DateEnd Date Ishmael Simon MD [address] [place] [address] PCP - GeneralFamily Medicine10/10/23Team MemberRelationshipSpecialtyStart DateEnd Date Ishmael Simon MD [address] [place] [address] PCP - GeneralFamily Medicine06/29/23 Amador Son MD [address] [facility] Office Bl, [address], [place] [address] CardiologistElectrophysiology05/17/24Team MemberRelationshipSpecialtyStart DateEnd Date Ishmael Simon MD PCP - GeneralFamily Medicine10/10/23 Ishmael Simon MD [address] [place] [address] PCP - Human06/09/23Team MemberRelationshipSpecialtyStart DateEnd Date Ishmael Simon MD PCP - GeneralFamily Ozonsxxc18/5/ Ishmael Simon MD PCP - GeneralFamily Medicine10/10/23 Ishmael Simon MD [address] [place] [address] PCP - [employer]2/06/01 Scheduled Active and Recently Administ ered Medications (unrecognized section and content) Medication Order08/02//// ceFAZolin in dextrose (iso-os) (Ancef) IVPB 1 [...] Indication (Select all that apply): Surgical Prophylaxis * 1230 (New Bag - Provider: Racheal Rosen RT) * 1300 (Stopped - Provider: Lottie Ferreira RN) chlorhexidine (Hibiclens) 4 % liquid (COMPLETED) Topical, Once, On Tue08/05/23 at 1230, For 1 dose, Preprocedure, For pre-op skin preparation * 1221 (Given - Provider: Lexi Araiza RN) mupirocin (Bactroban) 2 % ointment 1 Application (COMPLETED) 1 Application, Topical, Once, On Tue08/05/23 at 1230, For 1 dose, Preprocedure, Apply topically to both nares prior to procedure. Do not initiate until staph screening obtained first. * 1221 (Given - Provider: Lexi Araiza RN) perflutren lipid microspheres (Definity) [...] line with 10 mL of Normal Saline. Medication Order// sodium chloride 0.9% infusion (CANCELED) 20 mL/hr, intravenous, Continuous, Starting on Tue08/05/23 at 1230, Preprocedure * 1222 (New Bag - Provider: Lexi Araiza RN) * 1659 (Due: Stopped - Provider: Ana M Kumari APRN-SHE) sodium chloride 0.9% infusion (CANCELED) 20 mL/hr, intravenous, Continuous, Starting on Tue08/05/23 at 1230, Preprocedure, call center team leader to EP lab * 1221 (New Bag - Provider: Lexi Araiza RN) * 1659 (Due: Stopped - Provider: Ana M Kumari APRN-SHE) Medication Order// acetaminophen (Tylenol) tablet 650 mg 650 mg, oral, Every 4 hours PRN, pain mild (1-3), first line, pain moderate (4- 6), first line, Starting on Tue08/05/23 at 1657, If ordered PRN for pain, nurse is permitted to administer this medication for higher pain scores based on patient preference? Yes fentaNYL PF (Sublimaze) injection (CANCELED) As needed, Starting on Tue08/05/23 at 1555, Intraprocedure * 1555 (Given - Provider: Lottie Ferreira RN) * 1556 (Given - Provider: Lottie Ferreira RN) * 1557 (Given - Provider: Lottie Ferreira, RN) * 1557 (Given - Provider: Lottie Ferreira RN) * 1601 (Given - Provider: Lottie Ferreira RN) lidocaine PF (Xylocaine) 10 mg/mL (1 %) injection (CANCELED) As needed, Starting on Tue08/05/23 at 1555, Intraprocedure * 1555 (Given - Provider: Amador Son MD) * 1557 (Given - Provider: Amador Son MD) * 1612 (Given - Provider: Amador Son MD) midazolam (Versed) injection (CANCELED) As needed, Starting on Tue08/05/23 at 1555, Intraprocedure * 1555 (Given - Provider: Lottie Ferreira, RN) * 1557 (Given - Provider: Lottie Ferreira, RN) * 1601 (Given - Provider: Lottie Ferreira, RN) ondansetron (Zofran) injection 4 mg 4 mg, intravenous, Every 8 hours PRN, nausea/vomiting, first line, Starting on Tue08/05/23 at 1657,1st Line. Give IV if patient is unable to take orally. If inadequate response within 60 minutes, proceed to next-line agent for same PRN reason or contact provider if no further options ordered. Whenadministering via IV Push, administer over 3-5 minutes. [...] BE BASED ON THE PRIMARY CLINICAL RECORDS. ID [employer] [facility]. provides no warranty or guarantee of the accuracy or completeness of information in this document.
--- OUTSIDE RECORDS SUMMARY | 2025-03-18 11:07 | XMS_ITS | Encounter Summary ---
Author Organization [facility] Address [address] [place] [address] Care Team Providers Care Clinical Team Manager Name Role Phone Ishmael Watts MD Primary Care Provider [phone] Ishmael Watts MD Primary Care Provider [phone] Steve Pyle MD Unavailable [phone] Encounter Details DateTypeDepartmentCare Team (Latest Contact Info)Lekcstcqmrs67/03/2024linisync Result Encounter [facility] External Department Unsolicited Provider, Generic External Data Social History Tobacco UseTypesPacks/DayYears UsedDateSmoking Tobacco: Every DayCigarettes0.536 Smokeless Tobacco: NeverAlcohol UseStandard Drinks/WeekCommentsNever0 (1 standard drink = 0.6 oz pure alcohol)Social Connection and Isolation PanelAnswer Date RecordedIn a typical week, how many times do you talk on the phone with family, friends, or neighbors?More than three times a week10/09/2023Frequency of Social Gatherings with Friends and FamilyNot on file10/09/2023How often do you attend oriental orthodox or taoism services?Patient wiqdjkmf34/02/2024Do you belong to any clubs or organizations such as oriental orthodox groups, unions, fraternal or athletic groups, or school groups?No10/09/2023How often do you attend meetings of the clubs or organizations you belong to?Patient /02/2024re you , , , , never , or living with a partner?Living with ssgemhb9210/09/2023UDIT-CAnswerDate RecordedQ1: How often do you have a [...] heating?Not hard at all10/09/2023HQ-2AnswerDate RecordedPatient Health Questionnaire-2 Naqnr11206/25/2023[facility] [place] [facility] Occup[facility] - Occupational Stress QuestionnaireAnswerDate [...] steady place to sleep or slept in [facility] (including now)?No 10/09/2023Sex and Gender InformationValueDate RecordedSex Assigned at BirthNot on fileLegal ZdkPjkv0807/21/2022 11:01 PM EDTGender IdentityNot on fileSexual OrientationNot on filedocumented as of this encounter Functional Status * AUDIT-C ScoreAnswerDate of PtrdgfcagfUyxdka782/02/2024 9:03 AM Holger, Generic * Q1: How often do you have a drink containing alcohol?AnswerDate of Assessment ExvznpKbsjo48/02/2024 9:03 AM Holger, Generic * Q2: How many drinks containing alcohol do you have on a typical day when you are drinking?AnswerDate of AssessmentAuthorPatient does not drink10/09/2023 9:03 AM Holger, Generic * Q3: How often do you have six or more drinks on one occasion?AnswerDate of SokfaavcwpVafcntWhmxd09/02/2024 9:03 AM Holger, Generic * Over the past 2 weeks, how often have you been bothered by any of the following problems?QuestionAnswerDate of AssessmentAuthorLittle interest or pleasure in doing thingsNot at all04/24/2024 11:00 AM Katiuska Mejia MA Feeling down, depressed, or hopelessNot at all04/24/2024 11:00 AM Katiuska Mejia MAPatient Health Questionnaire-2 Rqnqm63206/25/2023 11:00 AM Katiuska Mejia MA * QuestionAnswerDate [...] watching televisionNot at all04/24/2024 11:00 AM Katiuska Mejia, MAMoving or speaking so slowly that other people could have noticed? Or the opposite - being so fidgety or restless that you have been moving around a lot more than usual.Not at all04/24/2024 11:00 AM Katiuska Mejia MAThoughts that you would be better off or hurting yourself in some wayNot at all04/24/2024 11:00 AM Katiuska Mejia MAPatient Health Questionnaire-9 Uebgk39106/25/2023 11:00 AM Katiuska Mejia MA documented as of this encounter Plan of Treatment Not on file documented as of this encounter Procedures Procedure NamePriorityDate/TimeAssociated DiagnosisCommentsVAS US UPPER EXTREMITY VENOUS DUPLEX LEFT08/10/2023 2:09 PM EDT documented in this encounter Results * Vascular US upper extremity venous duplex left (08/10/2023 2:09 PM EDT) Anatomical RegionLateralityModalityUpper ExtremitiesUltrasoundSpecimen (Source)Anatomical Location / LateralityCollection Method / VolumeCollection TimeReceived Time08/10/2023 2:09 PM EDT Narrative 08/10/2023 3:07 PM EDT Interpreted By: ??Maciej Ramos, STUDY: [facility] US UPPER EXTREMITY VENOUS DUPLEX LEFT; ??08/10/2023 2:47 pm ?? INDICATION: Signs/Symptoms: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 ?? COMPARISON: Portable chest 05 August 2023 ?? ACCESSION NUMBER(S): [id number] ?? ORDERING CLINICIAN: NAIMA ANDRES ?? TECHNIQUE: Vascular ultrasound of the ??left upper extremity was performed. Evaluation was performed with grayscale, color, and spectral Doppler. When possible, compression views of the evaluated veins was also performed. ?? FINDINGS: Evaluation of the visualized portions of the ??left internal jugular, innominate, subclavian, axillary, and brachial cephalic, and basilic veins as well as ulnar and radial veins was performed. ?? All vessels patent and, where applicable, normally compressible ?? IMPRESSION: Exam negative for acute deep venous thrombosis in the left upper extremity ?? MACRO: None ?? Signed by: Maciej Ramos 08/10/2023 3:07 PM Dictation workstation: ?? [id number] Procedure Note Radiology, Radiologist, - 08/10/2023 Interpreted By: Maciej Ramos, STUDY: [facility] US UPPER EXTREMITY VENOUS DUPLEX LEFT; 08/10/2023 2:47 pm INDICATION: Signs/Symptoms: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 COMPARISON: Portable chest 05 August 2023 ACCESSION NUMBER(S): [id number] ORDERING CLINICIAN: NAIMA ANDRES TECHNIQUE: Vascular ultrasound [...] Maciej Ramos 08/10/2023 3:07 PM Dictation workstation: [id number] Authorizing ProviderResult TypeResult StatusGeneric External Data ProviderIMG US PROCEDURESFinal Result documented in this encounter Visit Diagnoses Not on filedocumented in this encounter Care Teams Team MemberRelationshipSpecialtyStart DateEnd Date Ishmael Watts MD PCP - GeneralFamily Ndhhgepv42/5/236 Ishmael Watts MD PCP - GeneralFamily Medicine10/10/23 Steve Pyle MD [address] [place] [address] [facility] - [employer]2documented as of this encounter
--- OUTSIDE RECORDS SUMMARY | 2025-03-18 11:07 | XMS_ITS | Encounter Summary ---
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Patient orwqgrvo80/02/2024re you , , , , never , or living with a partner?Living with hoeezau5410/09/2023UDIT-CAnswerDate RecordedQ1: How often do you have a [...] heating?Not hard at all10/09/2023HQ-2AnswerDate RecordedPatient Health Questionnaire-2 Yfbqo61506/25/2023[facility] - Occupational Stress QuestionnaireAnswerDate [...] steady place to sleep or slept in [facility] (including now)?No 10/09/2023Sex and Gender InformationValueDate RecordedSex Assigned at BirthNot on fileLegal WfsPbpo1907/21/2022 11:01 PM EDTGender IdentityNot on fileSexual OrientationNot on filedocumented as of this encounter Functional Status * Over the past 2 weeks, how often have you been bothered by any of the following problems?QuestionAnswerDate of AssessmentAuthorLittle interest or pleasure in doing thingsNot at all04/24/2024 11:00 AM Katiuska Mejia MA Feeling down, depressed, or hopelessNot at all04/24/2024 11:00 AM Katiuska Mejia MAPatient Health Questionnaire-2 Gfvay87806/25/2023 11:00 AM Katiuska Mejia MA * QuestionAnswerDate [...] 11:00 AM Katiuska Mejia MAPatient Health Questionnaire-9 Lcfzw88006/25/2023 11:00 AM Katiuska Mejia MA documented as of this encounter Plan of Treatment Not on file documented as of this encounter Procedures Procedure NamePriorityDate/TimeAssociated DiagnosisCommentsXR CHEST 2 VIEWS PA/LAT11/09/2023 9:33 AM EDT documented in this encounter Results * XR CHEST 2 VIEWS PA/LAT (11/09/2023 9:33 AM EDT)Anatomical RegionLaterality ModalityRadiographic ImagingSpecimen (Source)Anatomical Location / Laterality Collection Method / VolumeCollection TimeReceived Time11/09/2023 9:33 AM EDT Narrative 11/10/2023 8:35 AM EDT Report to [facility] registration on 11/09/2023 at 8:30 AM for chest x-ray and device check prior to appointment with Dr. Dickens at 10 AM Interpreted By: ??Sancho Gross, STUDY: XR CHEST 2 VIEWS; ??11/09/2023 9:46 am ?? INDICATION: Signs/Symptoms:Pacemaker. ?? COMPARISON: 08/05/2023 ?? ACCESSION NUMBER(S): [id number] ?? ORDERING CLINICIAN: BERT METCALF ?? FINDINGS: Left-sided pacemaker in place. ? CARDIOMEDIASTINAL SILHOUETTE: Cardiomediastinal silhouette is normal in size and configuration. ?? LUNGS: Lungs are clear. ?? ABDOMEN: No remarkable upper abdominal findings. ?? BONES: No acute osseous changes. ?? IMPRESSION: 1. ??No evidence of acute cardiopulmonary process. ? MACRO: None ?? Signed by: Sancho Gross 11/10/2023 8:35 AM Dictation workstation: ?? [id number] Procedure Note Radiology, Radiologist, - 11/10/2023 Report to [facility] registration on 11/09/2023 at 8:30 AM for chestx-ray and device check prior to appointment with Dr. Dickens at 10 AM Interpreted By: Sancho Gross, STUDY: XR CHEST 2 VIEWS; 11/09/2023 9:46 am INDICATION: Signs/Symptoms:Pacemaker. COMPARISON: 08/05/2023 ACCESSION NUMBER(S): [id number] ORDERING CLINICIAN: BERT METCALF FINDINGS: Left-sided pacemaker in place. CARDIOMEDIASTINAL SILHOUETTE: Cardiomediastinal silhouette is normal in size and configuration. LUNGS: Lungs are clear. ABDOMEN: No remarkable upper abdominal findings. BONES: No acute osseous changes. IMPRESSION: 1. No evidence of acute cardiopulmonary process. MACRO: None Signed by: Sancho Gross 11/10/2023 8:35 AM Dictation workstation: [id number] Authorizing ProviderResult TypeResult StatusGeneric External Data ProviderIMG XR PROCEDURESFinal Result documented in this encounter Visit Diagnoses Not on filedocumented in this encounter Care Teams Team MemberRelationshipSpecialtyStart DateEnd Date Ishmael Watts MD PCP - GeneralFamily Medicine10/10/23 Steve Pyle MD [address] [place] [address] PCP - Human06/09/23documented as of this encounter
--- NOTE | 2025-03-18 11:59 | PM.PRESUREVA ---
History of Present Illness History of Present Illness Chief complaint: lumbar stenosis Narrative: Patient presents for presurgical testing. The patient reports a long history of low back and right thigh pain. The patient states he has been through physical therapy, had injections, and has taken several medications with no significant relief in his symptoms. The patient denies trauma, injury, numbness, tingling, weakness, or any other complaints. Review of Systems ROS Narrative REVIEW OF SYSTEMS: Negative except as stated in HPI, ten or more systems reviewed. Constitutional: No fever, chills, weakness ENT: No sore throat or epistaxis Cardiovascular: Chronic dyspnea on exertion and chest pain, intermittent lower extremity edema Respiratory: No cough or wheezing Gastrointestinal: No abdominal pain, constipation, diarrhea, or vomiting Genitourinary: No dysuria or hematuria Neurological: No numbness, tingling, weakness, or headache Psychiatric: No mood changes [facility] Medical History (Updated 03/18/25 @ 11:57 by Alice Hopkins NP) ROCHA (dyspnea on exertion) ?R06.09 - Other forms of dyspnea (ICD-10) Extremity edema ?R60.0 - Localized edema (ICD-10) Prediabetes ?R73.03 - Prediabetes (ICD-10) Erectile dysfunction ?N52.9 - Male erectile dysfunction, unspecified (ICD-10) Shoulder pain ?M25.519 - Pain in unspecified shoulder (ICD-10) Osteoarthritis ?M19.90 - Unspecified osteoarthritis, unspecified site (ICD-10) Congestive heart failure ?I50.9 - Heart failure, unspecified (ICD-10) Arrhythmia ?I49.9 - Cardiac arrhythmia, unspecified (ICD-10) Chronotropic incompetence ?I45.89 - Other specified conduction disorders (ICD-10) Bradycardia ?R00.1 - Bradycardia, unspecified (ICD-10) Chronic low back pain ?M54.50 - Low back pain, unspecified (ICD-10) ?G89.29 - Other chronic pain (ICD-10) Lumbar stenosis with neurogenic claudication ?M48.062 - Spinal stenosis, lumbar region with neurogenic claudication (ICD-10) COPD exacerbation ?J44.1 - Chronic obstructive pulmonary disease with (acute) exacerbation (ICD-10) Lumbar degenerative disc disease ?M51.369 - Other intervertebral disc degeneration, lumbar region without mention of lumbar back pain or lower extremity pain (ICD-10) Right shoulder pain ?M25.511 - Pain in right shoulder (ICD-10) Obesity ?E66.9 - Obesity, unspecified (ICD-10) Kidney failure ?N19 - Unspecified kidney failure (ICD-10) Smoker ?F17.200 - Nicotine dependence, unspecified, uncomplicated (ICD-10) COPD (chronic obstructive pulmonary disease) ?J44.9 - Chronic obstructive pulmonary disease, unspecified (ICD-10) Hypertension ?I10 - Essential (primary) hypertension (ICD-10) Surgical History (Updated 03/18/25 @ 11:46 by Alice Hopkins NP) History of colonoscopy ?Z98.890 - Other specified postprocedural states (ICD-10) H/O hernia repair ?Z98.890 - Other specified postprocedural states (ICD-10) ?Z87.19 - Personal history of other diseases of the digestive system (ICD-10) History of removal of cyst ?Z98.890 - Other specified postprocedural states (ICD-10) H/O elbow surgery ?Z98.890 - Other specified postprocedural states (ICD-10) S/P bladder repair ?Z98.890 - Other specified postprocedural states (ICD-10) S/P total hip arthroplasty ?Z96.649 - Presence of unspecified artificial hip joint (ICD-10) S/P cardiac pacemaker procedure ?Z95.0 - Presence of cardiac pacemaker (ICD-10) Family History (Updated 03/18/25 @ 11:35 by Alice Hopkins NP) Mother Family history of cancer Family history of COPD (chronic obstructive pulmonary disease) Other Chronic mental illness Social History (Updated 03/18/25 @ 11:22 by Alice Hopkins NP) Within the past year, how often did you have a drink containing alcohol: never Score interpretation: A score less than 4 is consistent with normal alcohol consumption. Smoking status: Current every day smoker What tobacco products do you use: cigarettes Cigarettes per day: 15 Years smoked: 48 Smoking pack-years: 36.00 Non-prescribed substance use: cannabis (any form) Highest level of school completed/degree received: high school graduate Little interest or pleasure in doing things: not at all Feeling down, depressed, or hopeless: not at all Meds Home Medications and Allergies Home Medications ?Medication ?Instructions ?Recorded ?Confirmed ?Type albuterol 90 mcg/actuation aerosol 90 mcg inhalation .Q6HRS PRN 10/14/22 03/18/25 History inhaler shortness of breath or wheezing fluticasone fur. 100 mcg-umeclid 1 inh inhalation DAILY 10/14/22 03/18/25 History 62.5 mcg-vilant 25 mcg inhalat.powder (Trelegy Ellipta) furosemide 40 mg tablet 40 mg PO BID 10/14/22 03/18/25 History montelukast 10 mg tablet 10 mg PO DAILY 10/14/22 03/18/25 History nabumetone 500 mg tablet 500 mg PO BID 10/14/22 03/18/25 History omeprazole 40 mg capsule,delayed 40 mg PO DAILY 10/14/22 03/18/25 History release oxycodone-acetaminophen 7.5 mg-325 1 tab PO Q6H 10/14/22 03/18/25 History mg tablet spironolactone 100 mg tablet 100 mg PO DAILY 10/14/22 03/18/25 History cetirizine 10 mg tablet (24Hour 10 mg PO DAILY PRN allergy symptoms 04/16/24 03/18/25 History Allergy) baclofen 10 mg tablet See Rx Instructions .Route 07/12/24 03/18/25 Rx .COMPLEX PRN muscle spasm #60 tabs aspirin 81 mg tablet,delayed 81 mg PO DAILY 03/18/25 03/18/25 History release (Adult Aspirin Regimen) rosuvastatin 10 mg tablet 10 mg PO DAILY 03/18/25 03/18/25 History topiramate 50 mg tablet 50 mg PO QPM 03/18/25 03/18/25 History Allergies Allergy/AdvReac Type Severity Reaction Status Date / Time No Known Drug Allergies Allergy Verified 03/18/25 11:17 Exam Narrative Exam Narrative: Constitutional: Awake, alert, comfortable, well-appearing, nontoxic, interactive, vital signs as charted Head: Normocephalic, atraumatic Neck: Supple, normal appearance, normal range of motion, no meningeal signs, no lymphadenopathy Respiratory: No respiratory distress, breath sounds clear Cardiovascular: Regular rate and rhythm, strong and regular heart tones Abdomen: Nontender, normal bowel sounds, soft Musculoskeletal: Normal gait, no swelling or edema, bilateral lower lumbar paraspinal muscle tenderness, lumbar spine range of motion limited due to pain Skin: No rashes or induration, no lesions, only visible skin inspected Neuro: No neurological deficits, normal sensation Psychiatric: Oriented ?3, normal affect Assessment and Plan Assessment and Plan (1) Lumbar degenerative disc disease: (2) Lumbar stenosis with neurogenic claudication: (3) Chronic low back pain: Plan Lumbar spinal cord stimulator trial placement scheduled with Dr. Galindo March 25, 2025.
[2025-03-18 12:01] LABS: Hematocrit 47.4 % (42.0-54.0); Hemoglobin 16.2 g/dL (14.0-18.0); Immature Granulocytes Abs Auto 0.12 10^3/uL (0.00-0.03); Immature Granulocytes Pct Auto 1.1 % (0.0-0.5); Lymphocytes Absolute Auto 2.3 10^3/uL (1.2-3.8); Mean Corpuscular HGB Conc 34.2 g/dL (29.9-35.2); Mean Corpuscular Hemoglobin 31.4 pg (25.9-34.0); Mean Corpuscular Volume 91.9 fL (80.0-94.0); Platelet Count 278 10^3/uL (150-450); Red Blood Count 5.16 10^6/uL (4.70-6.10); White Blood Count 10.9 10^3/uL (4.0-11.0)
[2025-03-18 12:15] LABS: INR 0.98; Partial Thromboplastin Time 27.6 sec (22.3-36.2); Prothrombin Time 10.4 sec (9.0-11.6)
[2025-03-18 13:43] LABS: Anion Gap 14.3; Blood Urea Nitrogen 20.0 mg/dL (7.0-18.0); Calcium 9.1 mg/dL (8.5-10.1); Carbon Dioxide 27.7 mmol/L (21.0-32.0); Chloride 102 mmol/L (98-107); Estimated GFR (African America >60 (>=60 mL/min/1.73m^2); Estimated GFR (Non-African Ame 60 (>=60 mL/min/1.73m^2); Glucose 113 mg/dL (74-106); Potassium 4.0 mmol/L (3.5-5.1); Sodium 140 mmol/L (136-145)
== END 2025-03-18 11:02 | disposition home or self-care (01) ==
LOC: PST 11:01
PROVIDERS: PCP Family Medicine; Visit Provider Anesthesiology
DX: Z01.810 Encounter for preprocedural cardiovascular examination (principal); Z01.812 Encounter for preprocedural laboratory examination; Z01.818 Encounter for other preprocedural examination; M48.062 Spinal stenosis, lumbar region with neurogenic claudication
CPT/HCPCS: 71046; 80048; 85025; 85610; 85730; G0463

== ENCOUNTER 2025-03-25 08:23 | Day surgery (SDC) | payer MEDICARE, SELFPAY ==
[2025-03-18 11:55] VITALS: BP 153/83; PULSE 86; TEMP 36.2; O2SAT 95; BMI 37.8
--- OUTSIDE RECORDS SUMMARY | 2025-03-25 08:29 | XMS_ITS | CCD ---
Author Organization [facility] Care Team Providers Care Pharmacoepidemiologist Name Role Phone SIMONE RUIZ Admitting Unavailable SIMONE RUIZ Attending Unavailable ISHMAEL SIMON Referring Unavailable ISHMAEL SIMON Primary Care Unavailable JEY MUNGUIA Attending Unavailable JEY MUNGUIA R Surgeon Unavailable IN Procedure Practitioner Unavailab ISHMAEL Campoverde Primary Care [...] NADERER, DR ISHMAEL Rae Primary Care Unavailable IBARAR ., DR RICKY Bateman Attending Unavailable IBARRA [...] LANE, Ishmael Vallejo Primary Care Provider [place] APRON CLEANER-FAMILY REUNIFICATION SPECIALIST, Naima E Unavailable Ishmael Simon MD Primary Care Provider Ishmael Simon MD Primary Care Provider Rubio DOT COMPLIANCE COORDINATOR-C, Danielle Priest Attending Provider Danielle Bergeron Attending Unavailable Ishmael Simon Primary Care Unavailable Danielle Bergeron Admitting Unavailable Danielle Bergeron Attending Unavailable Ishmael Simon Primary Care Unavailable Danielle Bergeron Admitting Unavailable Amdaor Son MD Unavailable Alfred LANE, Ishmael Primary Care Provider [phone] Ishmael Simon MD Primary Care Provider [phone] Amador Son MD Unavailable [phone], Jong Villalobos Attending Unavailable Amy [...] Primary Care Provider Amador Son MD Unavailable [phone] Ishmael Simon MD Primary Care Provider [...] (Original)acetaminophen 325 mg oral tablet (1 source)Start: 78-00-8663bmif 1 tablet by mouth every four hours as needed acetaminophen (Tylenol) tablet 650 mgacetaminophen 325 mg / oxyCODONE hydrochloride 7.5 mg oral tablet (20 sources)Opioid AgonistStart: 12-01-2023 End: 00-87-8043umbl 1 tablet by mouth four times daily as needed for pain oxyCODONE-acetaminophen (Percocet) 7.5-325 MG tablet Indications: Degeneration of lumbar intervertebral disc Take 1 tablet by mouth 4 (four) times a day as needed for severe pain or moderate pain 120tablet 12/17/2024 01/16/2025 Active Start: 33-90-3925ornn 1 tablet by mouth four times daily as neededoxyCODONE- Acetaminophen 7.5-325 MG Oral Tablet TAKE 1 TABLET BY MOUTH FOUR TIMES A DAY NEEDED Quantity: 120 Refills: 0 Ordered: 01-Apr-2021 DO Start : 30-Mar-2021 ActiveStart: 00-68-9778fzaXIXJBS-acetaminophen (PERCOCET) 7.5-325 mg per tablet 08/16/2019 ActiveStart: 33-48-7114iaqi 1 tablet by mouth every six hours as neededoxyCODONE-acetaminophen (Percocet) 7.5-325 mg tablet Take 1 tablet by mouth every 6 hours if neededfor severe pain (7 - 10). 03/30/2021 ActiveStart: 06-19-2018 End: 31-77-1035xegy 1 tablet by mouth every four to six hours as needed for pain Oxycodone-Acetaminophen 5-325 mg Tablet Discontinued 1 TAB PO EVERY 4-6 HOURS as needed for Pain June 19, 2018 12:00am June 22, 2018 9:[id number] 200 actuat albuterol 0.09 mg/actuat metered dose inhaler (20 sources)beta2-Adrenergic AgonistStart: 06-06-2024 End: 37-22-2794sjwn 2 puff(s) by inhalation every four hours for wheezing albuterol HFA 90 mcg/act inhaler Indications: Chronic obstructive pulmonary disease with acute exacerbation (HCC) Inhale 2 puffs every 4 (four) hours if needed for wheezing 18 g 3 06/06/2024 ActiveStart: 06-23-2018 End: 71-33-6994Hjyxheqwh Sulfate 90 mcg/actuation aerosol powdr breath activated [...] Inhibitor, Nonsteroidal Anti-inflammatory Drug Start: 12-01-2023 End: 59-74-5031rbfi 1 tablet by mouth once dailyaspirin 81 mg EC tablet Indications: Chronotropic incompetence Take 1 tablet (81 mg) by mouth once d aily. 12/01/2023 11/30/2024 Activebaclofen 10 mg oral tablet (20 sources)gamma-Aminobutyric Acid-ergic AgonistStart: 62-84-8172jacl 0.5-1 tablets by mouth twice dailybaclofen (Lioresal) 10 MG tablet TAKE 1/2 TO 1 TABLET BY MOUTH TWICE A DAY 01/27/2023 Activetake 1 tablet by mouth three times dailybaclofen (LIORESAL) 10 mg tablet Take 1 tablet (10 mg total) by mouth 3 (three) times a day. Activecephalexin 500 mg oral capsule (14 sources)Cephalosporin AntibacterialStart: 20-35-0003ajodiwluor (Keflex) 500 MG capsule 07/30/2024 Activecetirizine hydrochloride 10 mg oral tablet (20 sources)Histamine-1 Receptor AntagonistStart: 08-52-6611oapa 1 tablet by mouth once dailycetirizine (ZyrTEC) 10 MG tablet Indications: Allergic rhinitis due to pollen TAKE 1 TABLET BY MOUTH EVERY DAY 90 tablet 3 09/05/2024 Active cholecalciferol 0.05 mg oral tablet (7 sources)Vitamin DStart: 07-23-2019 End: 53-44-2546uidm 1 tablet by mouth once dailycholecalciferol, vitamin D3, 2,000 units tablet Take 1 tablet by mouth daily. 07/23/2019 12/07/2023 DiscontinuedStart: 93-31-4018tquy 1 tablet by mouth before mealtime Cholecalciferol (Vitamin D3) 50 mcg (2,000 unit) tablet Active 50 MCG PO Before meals July 06, 2019 12:00amtake 1 capsule by mouth once dailyVitamin D 50 MCG (2000 UT) Oral Capsule TAKE 1 CAPSULE Daily Quantity: 90 Refills: 0 Ordered: 28-Jan-2022 DO Activeciprofloxacin 500 mg oral tablet (3 sources)Quinolone AntimicrobialStart: 02-06-2024 End: 78-07-6879lasp 1 tablet by mouth in the morningciprofloxacin (Cipro) 500 MG tablet Indications: Acute prostatitis Take 1 tablet (500 mg) by mouth in the morning and 1 tablet (500 mg) before bedtime. Do all this for 14 days. 28 tablet 02/06/2024 02/20/2024 Active0.5 ml dulaglutide 1.5 mg/ml auto-injector (7 sources)GLP-1 Receptor AgonistStart: 04-24-2024 End: 74-71-2490tapldc 0.75 mg by subcutaneous injection every weekDulaglutide (Trulicity) 0.75 MG/0.5ML solution auto-injector Indications: Type 2 diabetes mellitus with hyperglycemia, without long-term current use of insulin ([facility]) Inject 0.75 mg under the skin1 (one) time per week 2 mL 5 04/24/2024 06/06/2024 Discontinued2 ml dupilumab 150 mg/ml auto-injector (1 source)Interleukin-4 Receptor alpha AntagonistStart: 06-17-2022 End: 92-23-1633ZUKPHISI PEN 300 mg/2 mL pen injector SUBQ injection pen Inject under the skin. 1 Injection every 2weeks. 06/17/2022 12/07/2023 Cpuotlokkvye11 actuat fluticasone furoate 0.1 mg/actuat / umeclidinium 0.0625 mg/actuat / vilanterol 0.025 mg/actuat dry powder inhaler (20 sources)Anticholinergic, Corticosteroid, beta2-Adrenergic AgonistStart: 75-55-9031KNBBRDZ ELLIPTA 100-62.5-25 mcg blister with device 08/17/2019 Active Start: 39-47-7244Wxvrneiwzzd-Umeclidin-Vilanter (Trelegy Ellipta) 100-62.5-25 mcg blister with device Active 1 MCG INHALATION As Directed July 06, 2019 12:00amtake 1 dose by inhalation in the kmhkulfQeuvncxlacx-Jxvmbwpyt-Xlskdy (Trelegy Ellipta) 100-62.5-25 MCG/ACT aerosol powder Inhale 1 Dose in the morning. Fkoitwzrxbnitwlql-uipsefdje-sdlzodng (TRELEGY-ELLIPTA) 100-62.5-25 mcg blister with device Inhale 1 puff.Use as directed Activefurosemide 40 mg oral tablet (20 sources)Loop DiureticStart: 45-97-9042zuxh 1 tablet by mouth at bedtime furosemide (Lasix) 40 MG tablet Indications: Chronic diastolic heart failure (HCC) TAKE 1 TABLET (40 MG) BY MOUTH IN THE MORNING AND AT BEDTIME 180 tablet 3 06/18/2024 ActiveStart: 06-19-2018 End: 34-28-2124zzrl 1 tablet by mouth once dailyFurosemide 40 mg Tablet Discontinued 40 MG PO Daily June 19, 2018 12:00am June 23, 2018 12:19pmgabapentin 300 mg oral capsule (20 sources)Anti-epileptic AgentStart: 07-06-2019 End: 09-84-1945ebaq 1 capsule by mouth once daily at [...] oral tablet (2 sources)Quinolone AntimicrobialStart: 07-23-2024 End: 51-13-2587hiow 1 tablet by mouth once dailylevoFLOXacin (Levaquin) 750 MG tablet Indications: Chronic obstructive pulmonary disease with acuteexacerbation (CMS/HCC) Take 1 tablet (750 mg) by mouth Daily for 7 days 7 tablet 07/23/2024 07/30/2024 Activemontelukast 10 mg oral tablet (20 sources)Leukotriene Receptor AntagonistStart: 73-77-2949tpqnuqypsnh (SINGULAIR) 10 mg tablet 08/12/2019 Activenabumetone 500 mg oral tablet (20 sources)Nonsteroidal Anti-inflammatory DrugStart: 07-06-2019 End: 18-16-3977slos 1 tablet by mouth twice dailynabumetone (Relafen) [...] release oral capsule (20 sources)Proton Pump InhibitorStart: 56-29-2624ycyp 1 capsule by mouth once dailyomeprazole (PriLOSEC) [address] capsule Indications: Alcoholic gastritis without bleeding , Alcoholic gastritis TAKE 1 CAPSULE BY MOUTH EVERY DAY 90 capsule 1 11/16/2024 ActiveStart: 97-38-9987cqkb 1 tablet by mouth once daily Omeprazole 20 mg Tablet,Delayed Release (Dr/Ec) Active 20 MG PO Daily June 19, 2018 12:00am2 ml ondansetron 2 mg/ml injection (1 source)Serotonin-3 Receptor AntagonistStart: 50-98-0613zvam 4 mg intravenously every eight hours as neededondansetron (Zofran) injection 4 mg oxygen (O2) gas therapy (18 sources)oxygen (O2) gas therapy 2l at bedtime Activeoxygen (O2) gas therapy 2l at bedtime 0 Activeperflutren lipid microspheres (Definity) injection 0.5-10 mL of dilution (1 source)Start: 67-74-5535nyqxwrothr lipid microspheres (Definity) injection 0.5-10 mL of dilutionpredniSONE 50 mg oral tablet (6 sources)Start: 07-23-2024 End: 40-74-8862vtnx 1 tablet by mouth once dailypredniSONE (Deltasone) 50 MG tablet Indications: Chronic obstructive pulmonary disease with acute ex acerbation (CMS/HCC) Take 1 tablet (50 mg) by mouth Daily for 6 days 6 tablet 07/23/2024 07/29/2024tiveStart: 01-13-2024 End: 30-02-3414fhjq 1 tablet by mouth once dailypredniSONE (Deltasone) 50 MG tablet Indications: Chronic obstructive pulmonary disease, unspecifiedCOPD type (CMS/HCC) Take 1 tablet (50 mg) by mouth Daily for 6 days 6 tablet 01/13/2024 01/19/2024 ActiveStart: 76-55-7427Rtkopeojeb 10 mg Tablet Active 60 MG PO Daily July 06, 2019 12:00am administer with food or milkpregabalin 100 mg oral capsule (10 sources)Start: 06-26-2024 End: 39-69-2520iaxu 1 capsule by mouth in the morningpregabalin (Lyrica) 100 MG capsule Take 100 mg by mouth in the morning and 100 mg before bedtime. 10/23/2024 Discontinuedrosuvastatin calcium 10 mg oral tablet (20 sources)HMG-CoA Reductase InhibitorStart: 06-13-2024 End: 14-72-3837olen 1 tablet by mouth once dailyrosuvastatin (Crestor) 10 mg tablet Indications: Peripheral vascular disease, unspecified , Hyperlipidemia, unspecified hyperlipidemia type Take 1 tablet (10 mg) by mouth once daily. 90 tablet 3 06/13/2024 06/13/2025 Active0.25 mg, 0.5 mg dose 1.5 ml semaglutide 1.34 mg/ml pen injector (3 sources)Start: 61-31-8458znetagkcywr (Ozempic, 0.25 or 0.5 MG/DOSE,) 2 MG/1.5ML [...] mg weekly 1 each 5 04/24/2024 ActiveStart: 56-14-7178xvqylndgijv (Ozempic, 0.25 or 0.5 MG/DOSE,) 2 MG/1.5ML solution pen-injector Indications: Type 2 diabetes mellitus with hyperglycemia, without long-term current use of insulin (CMS/HCC) 0.25 mg SC weekly x 4 weeks, then 0.5 mg weekly 1 each 5 04/24/2024 Activespironolactone 100 mg oral tablet (20 sources)Aldosterone AntagonistStart: 74-77-1440hmys 1 tablet by mouth once dailyspironolactone (Aldactone) 100 MG tablet Indications: Essential hypertension, benign TAKE 1 TABLET BY MOUTH EVERY DAY 90 tablet 5 04/09/2024 ActiveStart: 90-06-7484czqk 1 tablet by mouth in the morningspironolactone (ALDACTONE) 50 mg tablet Take 1 tablet (50 mg total) by mouth in the morning. 08/12/2019 ActiveStart: 18-93-2251Ignolhutkekjvo (Aldactone) 50 mg Tablet Active 25 MG PO Daily 0 June 23, 2018 12:18pmStart: 06-19-2018 End: 78-45-1555zcug 1 tablet by mouth once dailySpironolactone (Aldactone) 50 mg Tablet Discontinued 50 MG PO Daily June 19, 2018 12:00am June 23, 2018 12:19pmtopiramate 50 mg oral tablet (13 sources)Start: 39-82-3932eziq 1 tablet by mouth in the morningtopiramate 50 MG tablet Indications: Degeneration of intervertebral disc of lumbar region with discogenic back pain and lower extremity pain Take 50 mg by mouth in the morning and 50 mg before bedtime. 60 tablet 5 12/24/2024 ActiveStart: 94-05-4842uncc 1 tablet by mouth in the morningtopiramate 50 MG tablet Indications: Degeneration of intervertebral disc of lumbar region with discogenic back pain and lower extremity pain Take 50 mg by mouth in the morning and 50 mg before bedtime. 60 tablet 5 12/24/2024 ActiveStart: 10-23-2024 End: 82-24-5389vcnc 1 tablet by mouth in the morningtopiramate (Topamax) 25 MG tablet Indications: Degeneration of intervertebral disc of lumbar regionwith discogenic back pain and lower extremity pain Take 1 tablet (25 mg) by mouth in the morning and 1 tablet (25 mg) before bedtime. 60 tablet 5 10/23/2024 12/24/2024 Discontinued (Reorder)traMADol hydrochloride 50 mg oral tablet (1 source)Opioid AgonistStart: 36-98-3259pyag 1 tablet by mouth every six hours as neededtraMADol (Ultram) tablet 50 mg Completed/Discontinued Medications MedicationDrug Class(es)DatesSig (Normalized)Sig (Original)ceFAZolin 1000 mg injection (1 source)Cephalosporin AntibacterialStart: 08-05-2023 End: 59-98-3362pzBLIasff in dextrose (iso-os) (Ancef) IVPB 1 gchlorhexidine gluconate 40 mg/ml medicated liquid soap (1 source)Start: 08-05-2023 End: 34-46-8027oynzgtrqiczbw (Hibiclens) 4 % liquidStart: 08-05-2023 End: 48-15-2341ikwkuaszepuiz (Hibiclens) 4 % liquidcyclobenzaprine hydrochloride 10 mg oral tablet (2 sources)Muscle RelaxantStart: 09-15-2018 End: 79-98-0776orcr 1 tablet by mouth three times dailyCyclobenzaprine 10 mg tablet Discontinued 10 MG PO Three times daily 9 September 14, 2018 11:00pm 2019 12:12amDupixent SOPN (1 source)Dupixent SOPN USE DIRECTED Quantity: 0 Refills: 0 Ordered: 14-Jul-2022 DO Activelisinopril 20 mg oral tablet (2 sources)Angiotensin Converting Enzyme InhibitorStart: 06-19-2018 End: 51-13-3055dcbp 1 tablet by mouth once dailyLisinopril 20 mg Tablet Discontinued 20 MG PO Daily June 19, 2018 12:00am June 23, 2018 12:17pmmethocarbamol 750 mg oral tablet (2 sources)Muscle RelaxantStart: 06-19-2018 End: 65-35-4658ddtk 1 tablet by mouth twice daily as needed for pain Methocarbamol (Robaxin-750) 750 mg Tablet Discontinued 750 MG PO Twice daily as needed for Pain June 19, 2018 12:00am July 06, 2019 12:10am methylPREDNISolone 16 mg oral tablet (4 sources)CorticosteroidStart: 06-23-2018 End: 87-74-8082qinx 2 tablets by mouth once daily in the morning Methylprednisolone (Medrol) 16 mg tablet Discontinued 32 MG PO Every morning July 06, 2019 12:09am July 06, 2019 12:09ammupirocin 0.02 mg/mg topical ointment (1 source)RNA Synthetase Inhibitor AntibacterialStart: 08-05-2023 End: 69-50-3958tscvkxhfm (Bactroban) 2 % ointment 1 ApplicationStart: 08-05-2023 End: 53-38-8245tchxrlgku (Bactroban) 2 % ointment 1 ApplicationOxygen (5 sources)Oxygen 2l at bedtime Quantity: 0 Refills: 0 Ordered: 28-Jan-2022 DO Ehylkx0422 ml sodium chloride 9 mg/ml injection (2 sources)Start: 08-05-2023 End: 73-03-1985unjtun chloride 0.9% infusiontamsulosin hydrochloride 0.4 mg oral capsule (2 sources)alpha-Adrenergic BlockerStart: 06-19-2018 End: 06-68-0047xhev 1 capsule by mouth once dailyTamsulosin (Flomax) 0.4 mg Capsule Discontinued 0.4 MG PO Daily June 19, 2018 12:00am July 06, 2019 12:08amtiotropium 0.018 mg inhalation powder (2 sources)AnticholinergicStart: 06-23-2018 End: 50-87-4218dwlg 1 capsule by inhalation once dailyTiotropium Tracy (Spiriva With Handihaler) 18 mcg capsule, w/inhalation [...] pain; Translations: [Right lower quadrant pain] Onset: 42-00-2144IiszbajdThnpdyw-related disorders (20 sources)Alcoholic gastritis; Translations: [Alcoholic gastritis without bleeding]Onset: 509473-07-2058DdfwqcqKhddkkp dysrhythmias (20 sources)Sick sinus syndrome; Translations: [Sick sinus syndrome]Onset: 693800-97-6852TivfiaqKuxjqqm obstructive pulmonary disease and bronchiectasis (20 sources)Chronic obstructive lung disease; Translations: [Chronic airway obstruction, not elsewhere classified]Onset: 854171-09-2961JotvhzqUxhisez on above:Problem List clean-up per request of Phys. EHR CmteConduction disorders (20 sources)Chronotropic incompetence; Translations: [Other specified conduction disorders]Onset: 295308-79-3124RihydptAcfcvumzos heart failure; nonhypertensive (20 sources)Chronic diastolic heart failure; Translations: [Chronic diastolic (congestive) heart failure]Onset: 04-13-2023 Resolved: 139988-13-3544QsqgwmrUjhdabeb atherosclerosis and other heart disease (20 sources)Coronary arteriosclerosis; Translations: [Atherosclerotic heart disease of [place] coronary artery without angina pectoris]Onset: 06-13-2024 41-70-3962KjhsfnyJgpenrql mellitus with complications (20 sources)Type 2 diabetes mellitus with hyperglycemia; Translations: [Type 2 diabetes mellitus]Onset: 867825-40-1024KfslcurMuytdszjg of lipid metabolism (20 sources)Hyperlipidemia, unspecified; Translations: [Dyslipidemia]Onset: 756886-92-5333SvlqzczUdnoukiva hypertension (20 sources)Essential (primary) hypertension; Translations: [Benign essential hypertension]Onset: 340524-13-3348LlgvxfxUcnyrmj on above:Problem List clean-up per request of Phys. EHR CmteFluid and electrolyte disorders (4 sources)Hyponatremia; Translations: [Hypo-osmolality and hyponatremia] 37-18-9854KdtysdvnTrhengm on above:Problem List clean-up per request of Phys. EHR CmteHyperplasia of prostate (20 sources)Benign prostatic hypertrophy with outflow obstruction; Translations: [Benign prostatic hyperplasia with lower urinary tract symptoms]Onset: 199664-62-8032CofwcqyWlvgvgjzblh chest pain (2 sources)Atypical chest pain; Translations: [Other chest pain]04-20-2023 EpisodicComment on above:Problem List clean-up per request of Phys. EHR Cmte Nutritional deficiencies (20 sources)Vitamin D deficiency, unspecified; Translations: [Vitamin D deficiency]Onset: 29-44-9579FoueqtnRfobgqyfvrbqcz (20 sources)Osteoarthritis of right hip joint; Translations: [Unilateral primary osteoarthritis, right hip]Onset: 675932-95-3454IqweeuvGatif connective tissue disease (4 sources)Neuralgia and neuritis, unspecified; Translations: [NEURALGIA AND NEURITIS UNSPECIFIED]Onset: 94-73-9886YrhtxagvElmpr hereditary and degenerative nervous system conditions (1 source)Dystonia, unspecified; Translations: [DYSTONIA UNSPECIFIED]Onset: 97-34-6885WlhncmwLzmwa inflammatory condition of skin (20 sources)Plaque psoriasis; Translations: [Psoriasis vulgaris]Onset: 294438-80-6414HhrjytbKdkrd lower respiratory disease (1 source)Dyspnea, unspecified; Translations: [Dyspnea, unspecified]Onset: 83-85-7471UwxvtaguKuawh lower respiratory disease (2 sources)Rib pain; Translations: [Pleurodynia]59-30-9512VzknpzmjBacocvi on above:Problem List clean-up per request of Phys. EHR CmteOther lower respiratory disease (2 sources)Dyspnea on exertion; Translations: [Other forms of dyspnea]11-09-2023 EpisodicOther male genital disorders (20 sources)Secondary erectile dysfunction; Translations: [Male erectile dysfunction, unspecified]Onset: 718500-31-4936NtdtdjpTopkc male genital disorders (2 sources)Male erectile dysfunction, unspecified; Translations: [Impotence of organic origin]07-45-0841QxtqguxQseic nervous system disorders (4 sources)Other specified mononeuropathies; Translations: [OTHER SPECIFIED MONONEUROPATHIES]Onset: 34-08-0969NwmxlciKipeg nervous system disorders (1 source)Other chronic pain; Translations: [OTHER CHRONIC PAIN]Onset: 44-71-2336CluotplNhclr nervous system disorders (20 sources)Ulnar neuropathy of left arm; Translations: [Lesion of ulnar nerve, left upper limb]Onset: 423885-29-4288AapnayxImzwf nervous system disorders (20 sources)Carpal tunnel syndrome of left wrist; Translations: [Carpal tunnel syndrome, left upper limb]Onset: 802139-56-3730KswoacfAfihd nervous system disorders (1 source)Bilateral carpal tunnel syndrome; Translations: [Carpal tunnel syndrome, bilateral upper limbs]51-82-2060FkwxexxHsyrw nervous system disorders (1 source)Carpal tunnel syndrome; Translations: [Carpal tunnel syndrome, unspecified upper limb]78-11-2898ErjoodgNtagu nutritional; endocrine; and metabolic disorders (5 sources)Obesity; Translations: [Obesity, unspecified]ChronicOther nutritional; endocrine; and metabolic disorders (1 source)Obesity, unspecified; Translations: [OBESITY UNSPECIFIED]Onset: 56-86-2801JrsanksRwqwe nutritional; endocrine; and metabolic disorders (20 sources)Body mass index 30+ - obesity; Translations: [Body mass index (BMI) 34.0-34.9, adult]Onset: 750469-20-9728SqdixanPfcze nutritional; endocrine; and metabolic disorders (20 sources)Severe obesity; Translations: [Class 2 severe obesity due to excess calories with serious comorbidity and body mass index (BMI) of 37.0 to 37.9 in adult ([facility])]Onset: 487420-71-0004JdimjqaYvwwf nutritional; endocrine; and metabolic disorders (2 sources)Body mass index (BMI) 38.0-38.9, adult; Translations: [Body mass index (BMI) 38.0-38.9, adult]Onset: 11-73-2220SvuojaxKykxn nutritional; endocrine; and metabolic disorders (2 sources)Body mass index (BMI) 37.0-37.9, adult; Translations: [Body mass index (BMI) 37.0-37.9, adult]Onset: 41-55-4157MoadgtdIntfi skin disorders (2 sources)Localized swelling of left hand; Translations: [Localized swelling, mass and lump, left upper limb]36-41-9918RkxojsxeHdadtipmnl and visceral atherosclerosis (20 sources)Peripheral vascular disease; Translations: [Peripheral vascular disease, unspecified]Onset: 436591-87-5399MlbktozCfgylkpu codes; unclassified (20 sources)Obstructive sleep apnea syndrome; Translations: [Obstructive sleep apnea (adult) (pediatric)]Onset: 851518-84-6004PmhmpblVfxlylojecq failure; insufficiency; arrest (adult) (20 sources)Chronic hypoxemic respiratory failure; Translations: [Chronic respiratory failure with hypoxia]Onset: 04-13-2023 Resolved: 067925-41-1153WppxdcwMppzzgaffcf failure; insufficiency; arrest (adult) (2 sources)Respiratory failure; Translations: [Respiratory failure, unspecified, unspecified whether with hypoxia or hypercapnia]78-12-7535MdrogyqxXqrvgpl on above:Problem List clean-up per request of Phys. EHR CmteSpondylosis; intervertebral disc disorders; other back problems (20 sources)Spondylosis without myelopathy or radiculopathy, lumbar region; Translations: [Other intervertebraldisc degeneration, lumbar region]Onset: 15-74-8699VvmegivLsvsohgfoup; intervertebral disc disorders; other back problems (5 sources)Muscle spasm of back; Translations: [Intervertebral disc disorders with radiculopathy, lumbar region]Onset: 023942-49-8587UymddrjwSvskhsa on above:Problem List clean-up per request of Phys. EHR CmteSubstance-related disorders (20 sources)Smoker; Translations: [Tobacco use disorder]Onset: 03-09-8604Urcvmvb Comment on above:1 pack daily;Unclassified (1 source)LOW BACK PAIN, UNSPECIFIED; Translations: [LOW BACK PAIN, UNSPECIFIED] Onset: 75-60-4188Djawjtmsnsnu (3 sources)CONTACT W/AND (SUSP) EXPOS COVID-19; Translations: [CONTACT W/AND (SUSP) EXPOS COVID-19]Onset: 09-28-9046Rjbjapritvqv (1 source)Other intervertebral disc degeneration, lumbar region with discogenic back pain only; Translations:[Other intervertebral disc degeneration, lumbar region with discogenic back pain only]Onset: 42-87-0672Gtfkehhonobx (2 sources)Consult; Translations: [Consult]Onset: 87-62-6853Zjejp infection (1 source)COVID-19; Translations: [COVID-19]Onset: 04-14-2022 Past or Other Problems Problem ClassificationProblemDateDocumented DateEpisodic/ChronicAbdominal hernia (1 source)Left inguinal hernia ; Translations: [Unilateral inguinal hernia, without obstruction or gangrene, not specified as recurrent]65-81-6966Ibmgwapi Administrative/social admission (5 sources)Patient encounter status; Translations: [Persons encountering health services in other specified circumstances]Onset: 733030-87-2097Myzuidmt Cardiac dysrhythmias (20 sources)Sinus bradycardia; Translations: [Other specified cardiac dysrhythmias]Onset: 87-34-9819FcclhqimYmxmctborsogw symptoms and ill-defined conditions (20 sources)Dysuria; Translations: [Dysuria]Onset: 02-06-2024 Resolved: 928327-72-1302AlhmhnbePymkkau on above:Problem List clean-up per request of Phys. EHR CmteInflammatory conditions of male genital organs (20 sources)Prostatitis; Translations: [Inflammatory disease of prostate, unspecified]Onset: 02-06-2024 Resolved: 365290-24-6544ZwbvhjwiXpiuymp and fatigue (20 sources)Fatigue; Translations: [Other fatigue]Onset: EpisodicMood disorders (20 sources)Mood disordersOnset: Other aftercare (1 source)Other data center solutions architect (current) drug therapy; Translations: [OTH ALF CURRENT DRUG THERAPY]Onset: 29-99-4908VqpcigtgNrmlj aftercare (20 sources)Long-term current use of drug therapy; Translations: [Other data center solutions architect (current) drug therapy]Onset: [id number] connective tissue disease (1 source)Other muscle spasm; Translations: [OTHER MUSCLE SPASM]Onset: 63-13-8296YruemrssBbrbl connective tissue disease (1 source)Pain in right lower limb; Translations: [Pain in right leg]12-07-2023 EpisodicOther lower respiratory disease (20 sources)Dyspnea; Translations: [Other respiratory abnormalities]Onset: [id number]zy lower respiratory disease (4 sources)Pleurodynia; Translations: [PLEURODYNIA]Onset: 91-61-3550Nqygvnze Other lower respiratory disease (2 sources)Other forms of dyspnea; Translations: [Other forms of dyspnea]Onset: 56-80-1444YrsenfdcEfkta non-traumatic joint disorders (20 sources)Bilateral chronic pain of upper limbs; Translations: [Pain in right shoulder]Onset: 363567-77-0424JfsfgybfOqfxl screening for suspected conditions (not mental disorders or infectious disease) (20 sources)Cardiovascular stress test abnormal; Translations: [Other nonspecific abnormal results of function study of cardiovascular system]Onset: 02-15-2022 Resolved: 551993-98-4616ElcjhvvdInrei upper respiratory disease (20 sources)Polyp of nasal cavity and/or nasal sinus; Translations: [Nasal polyp, unspecified]Onset: 017552-48-3221BagoycufTpdimeec codes; unclassified (1 source)Tobacco user; Translations: [Tobacco use]09-10-9269WpfmbpwkMatdegjby and history of mental health and substance abuse codes (9 sources)Ex-smoker; Translations: [Personal history of nicotine dependence] Onset: 997215-66-2354NlnwzxrxKkpzhszgqdtn (1 source)CONTACT W/AND (SUSP) EXPOS COVID-19; Translations: [CONTACT W/AND (SUSP) EXPOS COVID-19]Onset: 60-41-7098Krnqsatxkzzv (18 sources)Onset: 07-13-2023 Resolved: Results Test NameValueInterpretationReference RangeFacilityCardiac Device Check - Remote on 36-25-7551DcyspcjkppCherrington Hospital Work Phone: Radiology Study observation (narrative)[facility] Work Phone: Consulton [id number] Liliana Michaels 1965 M Date Provider Department Center 02/05/2025 HORTENSIA IVERSON [facility] SURG Second Fl No family history on file Level of Service:95750 IN OFFICE/OUTPATIENT NEW MODERATE MDM 45 MINUTES Reason for Visit and Comments: Consult [484]NormalUnOur Lady of Mercy Hospital - AndersonCardiac Device Check - In Clinicon 69-86-2913PmkfmdvihwMercy Health Clermont Hospital Work Phone: Radiology Study observation (narrative)[facility] Work Phone: ECG 12 lead (Clinic Performed)on 40-06-8349EHT performed today shows atrial paced rhythm at rate of 65 bpm QRS duration 106 ms QT corrected 447 ms. Rhythm strip shows the same pattern. [facility] Work Phone: UnMer[facility] Work Phone: aLL CBC WITH AUTO DIFFon 17-37-1266DAOSCSDPJ ABSOLUTE AUTO0.1NOMS HealthcareBasophils/100 WBC (Bld)1 %0.2 - [...] review of laboratory resultsAbnormalNOMS Healthcare LYMPHOCYTES ABSOLUTE PMUZ7KDPW HealthcareLymphocytes/100 WBC (Bld)22.8 %20.5 - 60.0 %NOMS [facility] CenterMCH (RBC) [Entitic mass]30.7 pg25.9 - 34.0 pgNOMS HealthcareMCHC (RBC) [Mass/Vol]34 g/dL29.9 - 35.2 g/dLNOMS HealthcareMCV (RBC) [Entitic vol]90.3 fL80.0 - 94.0 fLNOMS HealthcareMONOCYTES ABSOLUTE AUTO0.7NOMS HealthcareMonocytes/100 WBC (Bld)7.7 %1.7 - 12.0 %NOMS HealthcareNEUTROPHILS ABSOLUTE AUTO5.6NOMS HealthcareNeutrophils/100 WBC (Bld)64.5 %43.0 - 75.0 %NOMS HealthcarePlatelet mean volume (Bld) [Entitic vol]10.3 fL9.5 - 13.5 fLNOMS HealthcareTBH EO #0.3NOMS HealthcareTBH JDC752NNCM HealthcareTBH RBC5.25NOMS HealthcareTBH WBC8.7NOMS HealthcareCLINISYNCNOMS HealthcareCardiac Device Check - Remoteon 29-01-2271MbsarjvbrfMercy Health Clermont Hospital Work Phone: Radiology Study observation (narrative)[facility] Work Phone: CT LUNG SCREENING LOW DOSEon 67-27-8498[address] [address] [address] Scan Report Signed Patient: LILIANA MICHAELS MR#: [id number] : 1965 Acct:[id number] Age/Sex: 59 / M ADM Date: 08/09/24 Loc: CT Attending Dr: Amina Cassidy D.O. Ordering Physician: Amina Cassidy D.O. Date of Service: 08/09/24 Procedure(s): CT lung screening low-dose Accession Number(s): [id number] cc: Ishmael Simon M.D. [address] [address] Patient Name: LILIANA MICHAELS MRN: TBH:[id number] date: 1965 Sex: M Assigned Patient Location: CT Current Patient Location: CT Accession/Order Number: [id number] Exam Date: 08/09/2024 08:33 Report Date: 08/09/2024 [...] Candida Wright M.D.08/09/2024 8:45 AM Dictation Location: [place] [address] Electronically authenticated by: [id number] Y Date: 08/09/2024 08:45 Dictated By: Candida Wright M.D. Signed By: 08/09/24 0848 DD/ 0845 TD/TT: Pants Presser Automatic:TBHRadiology, Radiologist, - 08/09/2024 [place] [address] CT Scan Report Signed Patient: LILIANA MICHAELS MR#: [id number] : 1965 Acct:[id number] Age/Sex: 59 / M ADM Date: 08/09/24 Loc: CT Attending Dr: Amina Cassidy D.O. Ordering Physician: Amina Cassidy D.O. Date of Service: 08/09/24 Procedure(s): CT lung screening low-dose Accession Number(s): [id number] cc: Ishmael Simon M.D. [place] [address] Patient Name: LILIANA MICHAELS MRN: [facility]:[id number] date: 1965 Sex: M Assigned Patient Location: CT Current Patient Location: CT Accession/Order Number: [id number] Exam Date: 08/09/2024 08:33 Report Date: 08/09/2024 [...] Candida Wright M.D.08/09/2024 8:45 AM Dictation Location: [place] [address] Electronically authenticated by: [id number] Y Date: 08/09/2024 08:45 Dictated By: Candida Wright M.D. Signed By: 08/09/24847 DD/ 4 TD/TT: Pants Presser Automatic: [facility] HealthcareRadiology Study observation (narrative)[facility] HealthcareCT LUNG SCREENING LOW DOSEOrdered By: Radiologist Radiology on 27-08-8061BF[facility] Work Phone: aLL BASIC METABOLIC PANELon 18-12-4188Sqnme gap [Moles/Vol]13 mmol/LNOMS HealthcareCalcium [Mass/Vol]9.2 mg/dL8.5 - 10.1 mg/dL NOMS HealthcareChloride [Moles/Vol]100 mmol/L98 - 107 mmol/LNOMS HealthcareCO2 [Moles/Vol]29.3 mmol/L21.0 - 32.0 mmol/LNOMS HealthcareCreatinine [Mass/Vol]1.2 mg/dL0.70 - 1.30 mg/dLNONJ HealthcareGFR/1.73 sq M.predicted CKD-EPI (S/P/Bld) [Vol rate/Area]>60>=60 mL/min/1.73m 2NOMS HealthcareGlucose [Mass/Vol]118 mg/dL High74 - 106 mg/dLNONJ HealthcarePotassium [Moles/Vol]4.3 mmol/L3.5 - 5.1 mmol/L NOMS HealthcareSodium [Moles/Vol]138 mmol/L136 - 145 mmol/LNOMS HealthcareTBH EGFR-NON AF CHILEAN>60>=60 mL/min/1.73m 2NOMS HealthcareUrea nitrogen [Mass/Vol]18 mg/dL7.0 - 18.0 mg/dLNONJ HealthcareUrea nitrogen/Creatinine [Mass ratio]15 mg/mgNONJ HealthcareALL LIPID PROFILE (FASTING)on 87-95-6077WHTO HDL RATIO5.8NONJ HealthcareComment on above:3.3 - 4.4 LOW RISK 4.4 - 7.1 AVERAGE RISK 7.1 - 11.0 MODERATE RISK >11.0 HIGH RISK Cholesterol [Mass/Vol]265 mg/dLHighNINF - 200 mg/dLNONJ HealthcareCholesterol in HDL [Mass/Vol]46 mg/dL40 - 60 mg/dLNOMS HealthcareComment on above:> or =60 mg/dl - LOW CARDIOVASCULAR RISK <40 mg/dl - HIGH CARDIOVASCULAR RISK Magnesium [Mass/Vol]159 mg/dLNOMS HealthcareComment on above:<100 mg/dl OPTIMAL 100-129 mg/dl NEAR OR ABOVE OPTIMAL 130-159 mg/dl BORDERLINE HIGH 160-189 mg/dl HIGH >190 mg/dl VERY HIGH Magnesium [Mass/Vol]60.6 mg/dLNOMS HealthcareTriglyceride [Mass/Vol]303 mg/dL HighNINF - 150 mg/dLNOMS HealthcareCCF Mario 04-74-2987MKA [Catalytic activity/Vol]36 U/L16 - 63 U/LNOMS HealthcareCCF Isaura 05-96-1596TPA [Catalytic activity/Vol]U/LLow15 - 37 U/LNOMS HealthcareNo Panel Informationon 06-14-2024 Interpretation and review of laboratory resultsAbnormalNOMS HealthcareCLINISYNC NOMS HealthcareEPITHELIAL CELLSon 46-83-4167Hvtzueryqz cells LM Ql (Urine sed) Epithelial Cells Few NOMS HealthcareNo Panel Informationon 45-66-4360GOIFUCIQAZRTH HealthcareRESULT 1 on 00-44-8147QUJBZD 1 Result 1 Moderate number of gram positive cocci. NOMS HealthcareRESULT 2on 89-04-3358XSRJPJ 2 Result 2 Few gram negative rods. NOMS HealthcareRESULT 3on 70-60-0440WCWAUB 3 Result 3 DOT COMPLIANCE COORDINATOR NOMS HealthcareRESULT 4on 09-31-1540INAJOY 4 Result 4 DOT COMPLIANCE COORDINATOR NOMS HealthcareWHITE BLOOD CELLSon 32-71-0350NSEZW BLOOD CELLS White Blood Cells NOMS HealthcareWHITE BLOOD CELLSFewNONJ HealthcareCardiac Device Check - In Clinicon 71-96-9144VrtizldeyfMercy Health Clermont Hospital Work Phone: Radiology Study observation (narrative)[facility] Work Phone: ECG 12 lead (Clinic Performed)on 14-76-9739STY performed today shows atrial paced rhythm at rate of 74 bpm QRS ration 100 ms QT corrected 448 ms. Rhythm strip shows the same pattern.[facility] Work Phone: UnMer[facility] Work Phone: MLR HEMOGLOBIN A1Con 41-97-0572Qstqvwg [Mass/Vol]131 mg/dLMercy McCune-Brooks HospitalHbA1c (Bld) [Mass fraction]6.2 %4.5 - 6.2 %[facility] Comment on above:ADA RECOMMENDED LIMIT 4.0 - 6.0 ADA THERAPEUTIC TARGET < 7.0 ACTION SUGGESTED > 7.0 CLINISYNCMercy McCune-Brooks HospitalMagnetic resonance imaging reportOrdered By: Germán Murphy on 56-56-3609Lxjke reportMAGRUDER HOSPITAL [place] [address] [place] [address] MRI Report Signed Patient: Liliana Michaels JR MR#: [id number] : 1965 Acct:[id number] Age/Sex: 59 / M ADM Date: 4 Loc: MR Room: Type: [facility] Attending Dr: Danielle GAYTAN Copies to: LUKAS Burns~ Ordering Provider: LUKAS Burns Date of Service: 03/27/24 MR/MR lumbar spine wo con: LUMBAR DDD ([id number]) XR/XR pre/post mri xray: LUMBAR DDD MRI [...] Murphy Jr., D.O.03/27/2024 11:57 AM Dictation Location: [place] [address] Transcribed By: [facility] 03/27/24 1157 Dictated By: Germán Murphy Jr, DO 03/27/24 1148 Signed By: 03/27/24 1157 [facility]XR pre/post mri xrayon 59-54-3384PJ pre/post mri xrayMAGRUDER HOSPITAL [place] [address] [place] [address] MRI Report Signed Patient: Liliana Michaels JR MR#: [id number] : 1965 Acct:[id number] Age/Sex: 59 / M ADM Date: 03/27/24 Loc: MR Room: Type: [facility] Attending Dr: Danielle GAYTAN Copies to: LUKAS Burns Ordering Provider: LUKAS Burns Date of Service: 03/27/24 MR/MR lumbar spine wo con: LUMBAR DDD ([id number]) XR/XR pre/post mri xray: LUMBAR DDD MRI [...] Murphy Jr., D.OAtiya03/27/2024 11:57 AM Dictation Location: [place] [address] Transcribed By: [facility] 03/27/24 1157 Dictated By: Germán Murphy Jr, DO 03/27/24 1148 Signed By: 03/27/24 1157[facility] Physician GroupXR chest 2V*on 32-02-7909VJ chest 2V*[facility] [place] [id number] XRay Report Signed Patient: Liliana Michaels JR MR#: [id number] : 1965 Acct:[id number] Age/Sex: 59 / M ADM Date: 03/16/24 Loc: [facility] Room: Type: [facility] Attending Dr: Danielle GAYTAN Copies [...] Elia Rodrigez M.D.03/16/2024 8:54 AM Dictation Location: [facility]--16 Transcribed By: [facility] 03/16/24 0854 Dictated By: Elia Rodrigez DO 03/16/24 0849 Signed By: 03/16/24 0854[facility] Physician GroupCardiac Device Check - Remoteon 14-84-2373OcajsxacuiMercy Health Clermont Hospital Work Phone: Radiology Study observation (narrative)[facility] Work Phone: TB UA (CLEAN/CATCH) MICROSCOPIC IF INDICATEon 22-24-1544RLCQHMAKS URINENegativeNEGATIVENOMS HealthcareBLOOD URINETRACE-I NEGATIVENOMS HealthcareClarity (U)SL CLOUDYCLEARNOMS HealthcareColor (U)LT. YELLOWYELLOWNOMS HealthcareGLUCOSE URINE UANegativeNEGATIVE mg/dLNOMS Healthcare Interpretation and review of laboratory resultsAbnormalNOMS HealthcareKetones Ql (U)NegativeNEGATIVE mg/dLNOMS HealthcareLeukocyte esterase Test strip Ql (U) LARGEAbnormalNEGATIVENOMS HealthcareNITRITE URINENegativeNEGATIVENOMS Healthcare pH (U)6.0 [pH]5.0 - 9.0NONJ HealthcarePROTEIN URINENegativeNEG/TRACE mg/dLNONJ HealthcareSPECIFIC GRAVITY URINE1.0151.005 - 1.025NONJ HealthcareURINE MICROSCOPIC INDICATEDYESNONJ HealthcareUROBILINOGEN URINE0.2 EU/dL0.2 - 1.0 EU/dLNONJ HealthcareCLINISYNCNOMS HealthcareXR CHEST 2 VIEWS VINCENZO/Pal 11-10-2023 Report to [facility] registration on 11/09/2023 at 8:30 AM for chest x-ray and device check prior to appointment with Dr. Son at 10 AM Interpreted By: Sancho Gross, STUDY: XR CHEST 2 VIEWS; 11/09/2023 9:46 am INDICATION: Signs/Symptoms:Pacemaker. COMPARISON: 08/05/2023 ACCESSION NUMBER(S): [id number] ORDERING CLINICIAN: ANA M KUMARI FINDINGS: Left-sided pacemaker in place. CARDIOMEDIASTINAL SILHOUETTE: Cardiomediastinal silhouette is normal in size and configuration. LUNGS: Lungs are clear. ABDOMEN: No remarkable upper abdominal findings. BONES: No acute osseous changes. IMPRESSION: 1. No evidence of acute cardiopulmonary process. MACRO: None Signed by: Sancho Gross 11/10/2023 8:35 AM Dictation workstation: [id number], Radiologist, - 11/10/2023 Report to [facility] registration on 11/09/2023 at 8:30 AM for chest x-ray and device check prior to appointment with Dr. Son at 10 AM Interpreted By: Sancho Gross, STUDY: XR CHEST 2 VIEWS; 11/09/2023 9:46 am INDICATION: Signs/Symptoms:Pacemaker. COMPARISON: 08/05/2023 ACCESSION NUMBER(S): [id number] ORDERING CLINICIAN: ANA M KUMARI FINDINGS: Left-sided pacemaker in place. CARDIOMEDIASTINAL SILHOUETTE: Cardiomediastinal silhouette is normal in size and configuration. LUNGS: Lungs are clear. ABDOMEN: No remarkable upper abdominal findings. BONES: No acute osseous changes. IMPRESSION: 1. No evidence of acute cardiopulmonary process. MACRO: None Signed by: Sancho Gross 11/10/2023 8:35 AM Dictation workstation: [id number] NOMS HealthcareXR CHEST 2 VIEWS PA/LATOrdered By: Radiologist Radiology on 40-61-3893YQPX [employer] Work Phone: XR CHEST 2 VIEWS PA/LATon 60-12-7170Lvxwovxva Study observation (narrative)NOMS HealthcareXR Shoulder - bilateral 2 Viewson 96-06-54[place] [address] XRay Report Signed Patient: LILIANA MICHAELS MR#: [id number] : 1965 Acct:[id number] Age/Sex: 58 / M ADM Date: 10/10/23 Loc: LAB Attending Dr: Ishmael Simon M.D. Ordering Physician: Ishmael Simon M.D. Date of Service: 10/10/23 Procedure(s): XR shoulder KRISTOPHER min 2V Accession Number(s): [id number] cc: Ishmael Simon M.D. [place] [address] Patient Name: LILIANA MICHAELS MRN: TBH:[id number] date: 1965 Sex: M Assigned Patient Location: LAB Current Patient Location: Accession/Order Number: [id number] Exam Date: 10/10/2023 12:45 Report Date: 10/11/2023 [...] Signed By: 10/11/23 1137 DD/ 1134 TD/TT: Pants Presser Automatic:TBHRadiology, Radiologist, MD - 10/11/2023 [place] [address] XRay Report Signed Patient: LILIANA MICHAELS MR#: [id number] : 1965 Acct:[id number] Age/Sex: 58 / M ADM Date: 10/10/23 Loc: LAB Attending Dr: Ishmael Simon M.D. Ordering Physician: Ishmael Simon M.D. Date of Service: 10/10/23 Procedure(s): XR shoulder KRISTOPHER min 2V Accession Number(s): [id number] cc: Ishmael Simon M.D. [place] [address] Patient Name: LILIANA MICHAELS MRN: TBH:[id number] date: 1965 Sex: M Assigned Patient Location: LAB Current Patient Location: Accession/Order Number: [id number] Exam Date: 10/10/2023 12:45 Report Date: 10/11/2023 [...] Signed By: 10/11/23 1137 DD/ 1134 TD/TT: Pants Presser Automatic: NOMFransico HealthcareRadiology Study observation (narrative)NOMS HealthcareXR Shoulder - bilateral 2 ViewsOrdered By: Radiologist Radiology on 04-99-7829OPSMMercy McCune-Brooks Hospital Work Phone: cardiac Device Check - Remoteon 39-41-8435EreddwuzgmMercy Health Clermont Hospital Work Phone: Radiology Study observation (narrative)[facility] Work Phone: US.doppler Upper extremity vein - lefton 08-10-2023 Exam negative for acute deep venous thrombosis in the left upper extremity MACRO: None Signed by: Simone Ramos 08/10/2023 3:07 PM Dictation workstation: [id number] MMODALInterpreted By: Simone Ramos, STUDY: [facility] US UPPER EXTREMITY VENOUS DUPLEX LEFT; 08/10/2023 2:47 pm INDICATION: Signs/Symptoms: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 COMPARISON: Portable chest 05 August 2023 ACCESSION NUMBER(S): [id number] ORDERING CLINICIAN: NAIMA WRIGHT TECHNIQUE: Vascular ultrasound [...] - 08/10/2023 Interpreted By: Simone Ramos, STUDY: [facility] US UPPER EXTREMITY VENOUS DUPLEX LEFT; 08/10/2023 2:47 pm INDICATION: Signs/Symptoms: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 COMPARISON: Portable chest 05 August 2023 ACCESSION NUMBER(S): [id number] ORDERING CLINICIAN: NAIMA WRIGHT TECHNIQUE: Vascular ultrasound [...] Simone Ramos 08/10/2023 3:07 PM Dictation workstation: [id number] [facility] Work Phone: Interpreted By: Simone Ramos, STUDY: [facility] US UPPER EXTREMITY VENOUS DUPLEX LEFT; 08/10/2023 2:47 pm INDICATION: Signs/Symptoms: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 COMPARISON: Portable chest 05 August 2023 ACCESSION NUMBER(S): [id number] ORDERING CLINICIAN: NAMIA WRIGHT TECHNIQUE: Vascular ultrasound of the left [...] Simone Ramos 08/10/2023 3:07 PM Dictation workstation: [id number], Radiologist, - 08/10/2023 Interpreted By: Simone Ramos, STUDY: [facility] US UPPER EXTREMITY VENOUS DUPLEX LEFT; 08/10/2023 2:47 pm INDICATION: Signs/Symptoms: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 COMPARISON: Portable chest 05 August 2023 ACCESSION NUMBER(S): [id number] ORDERING CLINICIAN: NAIMA WRIGHT TECHNIQUE: Vascular ultrasound [...] Simone Ramos 08/10/2023 3:07 PM Dictation workstation: [id number] [facility]Bro[facility] HospitalRadiology Study observation (narrative)[facility] Work Phone: Radiology Study observation (narrative)[facility] US.doppler Upper extremity vein - leftOrdered By: Simone Ramos on 08-10-2023 [facility] Work Phone: US.doppler Upper extremity vein - leftOrdered By: Radiologist Radiology on 90-42-1248ZSYVMercy McCune-Brooks Hospital Work Phone: basic metabolic 2000 panelon 45-16-4562Cjddj gap [Moles/Vol]12 mmol/L10 - 20 mmol/[facility] HospitalCalcium [Mass/Vol]9.6 mg/dL8.6 - 10.3 mg/dLCherrington HospitalChloride [Moles/Vol]102 mmol/L98 - 107 mmol/[facility] HospitalCO2 [Moles/Vol]29 mmol/L21 - 32 mmol/[facility] HospitalCreatinine [Mass/Vol]1.12 mg/dL0.50 - 1.30 mg/dLUnMercy Health Clermont HospitalGFR/1.73 sq M.predicted among non-blacks MDRD (S/P/Bld) [Vol rate/Area]76 mL/min/{1.73_m2}- PINFUniSouthwest General Health CenterComment on above: Calculations of estimated GFR are performed using the 2020 CKD-EPI Study Refit equation without therace variable for the IDMS-Traceable creatinine methods. https://jasn.asnjournals.org/content//ASN.0094392770 Glucose [Mass/Vol]95 mg/dL74 - 99 mg/dLUnMercy Health Clermont Hospital Interpretation and review of laboratory resultsNoWVUMedicine Harrison Community HospitalPotassium [Moles/Vol]4.0 mmol/L3.5 - 5.3 mmol/[facility] HospitalSodium [Moles/Vol]139 mmol/L136 - 145 mmol/[facility] HospitalUrea nitrogen [Mass/Vol]17 mg/dL6 - 23 mg/dLUnMercy Health Clermont HospitalUnMercy Health Clermont HospitalCBC panel Auto (Bld)on 08-05-2023 Erythrocyte distribution width (RBC) [Ratio]13.0 %11.5 - 14.5 %[facility]rington HospitalHematocrit (Bld) [Volume fraction]46.9 %41.0 - 52.0 % [facility] HospitalHemoglobin (Bld) [Mass/Vol]16.1 g/dL13.5 - 17.5 g/dLUnMercy Health Clermont HospitalInterpretation and review of laboratory resultsNoAshtabula County Medical CenterH (RBC) [Entitic mass]31.5 pg 26.0 - 34.0 pgUnMercy Health Clermont HospitalMCHC (RBC) [Mass/Vol]34.3 g/dL 32.0 - 36.0 g/dLUnMercy Health Clermont HospitalMCV (RBC) [Entitic vol]92 fL80 - 100 fLUniSouthwest General Health CenterNucleated RBC/100 WBC (Bld) [Ratio]0.0 %[facility] HospitalPlatelets (Bld) [#/Vol]279 10*3/Ashtabula County Medical CenterRBC (Bld) [#/Vol]5.11 10*6/[facility] County Medical CenterWBC (Bld) [#/Vol]8.9 10*3/[facility] County Medical CenterUnMercy Health Clermont HospitalElectrophysiology studyon 55-84-1112DpxrurhahsMercy Health Clermont Hospital Work Phone: PT and aPTT panel Coag (PPP)on 20-78-6719uWFV Coag (PPP) [Time]34 [facility] Medical CenterINR Coag (PPP) [Relative time] 1.0 {INR}0.9 - 1.1C[facility] HospitalInterpretation and review of laboratory resultsNormalUniversMorgan Hospital & Medical CenterPT Coag (PPP) [Time] 11.0 [facility] Medical CenterThe APTT is no longer used for monitoring Unfractionated Heparin Therapy. For monitoring Heparin Therapy, use the Heparin Assay.[facility] HospitalUnMercy Health Clermont HospitalUS Heart TransthoracicOrdered By: Batsheva Morris on 77-05-7764Cnwums Valve Area by Continuity of Peak Velocity2.42 xv3ZledldysmfCherrington Hospital Work Phone: Aortic Valve Area by Continuity of VTI2.62 cm2 [facility] Work Phone: AV mn grad4.0mmHgC[facility] Hospital Work Phone: [phone] pk grad8.2mmHgC[facility] Hospital Work Phone: [phone] pk vel1.43 m/[facility] Work Phone: LA vol index A/L29.3 ml/j9HbrczqnlpiMercy Health Clermont Hospital Work Phone: LV A4C EF62.4[facility] Work Phone: LV biplane EF60 %[facility] Work Phone: LVIDd5.28 cmUnMercy Health Clermont Hospital Work Phone: LVOT diam2.00 cmCherrington Hospital Work Phone: MV avg E/e' ratio7.78UnMercy Health Clermont Hospital Work Phone: [phone] E/A ratio0.88UnMercy Health Clermont Hospital Work Phone: RV free wall pk S'15.40 cm/sUnMercy Health Clermont Hospital Work Phone: RVSP23.4mmHgUnMercy Health Clermont Hospital Work Phone: Tricuspid annular plane systolic excursion3.6 cm [facility] Work Phone: UnMercy Health Clermont Hospital Work Phone: US Heart Transthoracicon 08-05-2023 [place] [id number] TRANSTHORACIC ECHOCARDIOGRAM REPORT Patient Name: LILIANA MICHAELS Reading Physician: [id number] Batsheva Morris MD, [facility] Study Date: 08/05/2023 Ordering Provider: [id number] ANA M ANGEL MRN/PID: [id number] Fellow: Nurse: Date of /Age: 10 1965 / 58 Collar Sewer: Eli Pisano RDCS Gender: M Additional Staff: Height: 162.56 cm Admit Date: Weight: 90.72 kg Admission Status: Outpatient BSA / BMI: 1.96 m2 / 34.33 Department Location: [place] [address] Echo Lab Blood Pressure: 128 /73 mmHg Study Type: TRANSTHORACIC ECHO (TTE) COMPLETE Diagnosis/ICD: Bradycardia, unspecified-R00.1 Indication: Abnormal EKG, Pre-EP CPT Codes: Echo Complete w Full Doppler-01018 Study Detail: The following Echo studies were [...] LA Area A2C: 18.9 cm2 LA [place] A4C: 5.8 cm LA [place] A2C: 5.5 cm LA Volume Index: 27.0 [...] content not included)...Batsheva Dotson MD - 08/05/2023 [place] [address] TRANSTHORACIC ECHOCARDIOGRAM REPORT Patient Name: LILIANA MICHAELS Reading Physician: [id number] Batsheva Morris MD, [facility] Study Date: 08/05/2023 Ordering Provider: [id number] ANA M ANGEL MRN/PID: [id number] Fellow: Nurse: Date of /Age: 10 1965 Collar Sewer: Eli Pisano CS Gender: M Additional Staff: Height: 162.56 cm Admit Date: Weight: 90.72 kg Admission Status: Outpatient BSA / BMI: 1.96 m2 / 34.33 Department Location: [facility]/m2 Echo Lab Blood Pressure: 128 /73 mmHg Study Type: TRANSTHORACIC ECHO (TTE) COMPLETE Diagnosis/ICD: Bradycardia, unspecified-R00.1 Indication: Abnormal EKG, Pre-EP CPT Codes: Echo Complete w Full Doppler-95916 Study Detail: The following Echo studies were [...] LA Area A2C: 18.9 cm2 LA [place] A4C: 5.8 cm LA [place] A2C: 5.5 cm LA Volume Index: 27.0 [...] 1.3 m/s (0.6-0.9m/s) PV Max P.6 mmHg [id number] Batsheva Morris MD, [facility] Electronically signed on 08/05/2023 at 2:30:14 PM Final [facility] Work Phone: xr Chest Single viewon 18-10-9218Irxhtf post pacemaker placement. Signed by: Salvatore Clark 08/05/2023 6:10 PM Dictation workstation: [id number] By: Salvatore Clark, STUDY: XR CHEST 1 VIEW INDICATION: Signs/Symptoms:post implant. COMPARISON: None ACCESSION NUMBER(S): [id number] ORDERING CLINICIAN: ANA M KUMARI FINDINGS: No consolidation, effusion, edema, or pneumothorax. Pacemaker placed without pneumothorax. Position satisfactory. MMSalvatore Warren MD - 08/05/2023 Interpreted By: Salvatore Clark, STUDY: XR CHEST 1 VIEW INDICATION: Signs/Symptoms:post implant. COMPARISON: None ACCESSION NUMBER(S): [id number] ORDERING CLINICIAN: ANA M KUMARI FINDINGS: No consolidation, effusion, edema, or pneumothorax. Pacemaker placed without pneumothorax. Position satisfactory. IMPRESSION: Status post pacemaker placement. Signed by: Salvatore Clark 08/05/2023 6:10 PM Dictation workstation: [id number] [facility] Work Phone: Radiology Study observation (narrative)[facility] Work Phone: xr Chest Single viewOrdered By: Salvatore Clark on 30-59-8961PwdbrxjrbjMercy Health [facility]erm[facility] Work Phone: ecg 12 lead (Clinic Performed)on 22-21-6432EFV shows marked sinus bradycardia rate of 41 bpm QRS ration 100 ms QT corrected he had a 91 ms. Rhythm strip shows the same pattern.CPACSUnMercy Health Clermont Hospital Work Phone: CT LUNG CANCER SCREENINGon 71-89-6690QC LUNG CANCER SCREENINGEXAMINATION: CT LUNG CANCER SCREENING [...] Electronically authenticated by: BATSHEVA ALVARADO Date: 2022-07-15 12:[address] [place], [place] [address]Office Visit (Cardiology)on 96-27-9546Thdjbf-up visit Diagnoses/Problems Assessed Sinus bradycardia (427.89) (R00.1) [...] we can help. You may also call [phone] & E Capital ManagementNOW for free resources and assistance.; Status:Complete - [...] ischemic evaluation. He underwent cardiac catheterization in [place] which showed no significant obstructive disease 3. [...] BY MOUTH FOUR TIMES A DAY NEEDED Isvmmb7s at bedtime Singulair 10 MG Oral TabletTAKE [...] Recorded: 14Jul2022 10:57AM Heart Rate34, L Radial Qcbbxbot208, LUE, Sitting Dztfszscg54, LUE, Sitting Height5 ft 4 in Wprsfb308 lb BMI Suqdyygswu40.96 kg/m2 BSA Calculated1.92 Tobacco Usea) Yes Patient encouraged to st (more content not included)...NormalUH Touchworks Tobacco Screening.on 25-64-4112Vjlan depression screening assessmentNoL[facility]des [facility] Center CRAVEPutnam County Memorial HospitalLansingNoovo DO Work Phone: Fall risk assessmenta) No falls within the last year [facility] [employer] DO Work Phone: Tobacco use status CPHSa) YesLourdes Medical Center CRAVEConnecticut Children'[facility] Center [employer] DO Work Phone: Tobacco Screening.YesPerham [facility] [employer] DO Work Phone: CT ABD/PELV W CONon 52-68-5500UB ABD/PELV W CON EXAMINATION: CT ABD/PELV W [...] Electronically authenticated by: FLEX JACOBS Date: 2022-06-11 10:06[facility] AUTO DIFFon 68-75-4476ALYP #0.1 103/ulNormal0.0-0.1The [facility] Orthopedic CenterComment on above:Performed By: #### CBC #### [facility] [address] [address] [address] Britt MendozaBasophils/100 WBC (Bld)1.6 %Normal0.2-2.0The [facility] Comment on above:Performed By: #### CBC #### [facility] [address] [place] [address] Dr. Britt Kent #0.2 103/ulNormal0.0-0.7The [facility] CenterComment on above: Performed By: #### CBC #### [facility] [address] [address] [address] Britt Sueosinophils/100 WBC (Bld)3.0 %Normal0.9-7.0The [facility] Comment on above:Performed By: #### CBC #### [facility] [address] [address] [address] Britt Suerythrocyte distribution width (RBC) [Ratio]12.4 %Xjjmqv14.0-15.0 The [facility] CenterComment on above:Performed By: #### CBC #### [facility] [address] [address] [address] Britt MendozaHematocrit (Bld) [Volume fraction]43.2 %Bxjdor29.0-54.0The [facility] CenterComment on above:Performed By: #### CBC #### [facility] [address] [address] [address] Britt MendozaHemoglobin (Bld) [Mass/Vol]14.7 g/jRPzyint63.0-18.0The [facility] CenterComment on above:Performed By: #### CBC #### [facility] [address] [address] [address] Britt Esposito #0.11 10e3/ulCritically high0.00-0.03The [facility] Comment on above:Performed By: #### CBC #### [facility] [address] [address] [address] Britt Esposito %1.4 %Critically high0.0-0.5The Snoqualmie HospitalComment on above:Performed By: #### CBC #### [facility] [address] [address] [address] Britt Meyer #1.7 103/ulNormal1.2-3.8The [facility] CenterComment on above:Performed By: #### CBC #### [facility] [address] [place] [address] Dr. Britt Sebastianhocytes/100 WBC (Bld)21.6 %Fmrzzl09.5-60.0Par[facility] Community General HospitalComment on above:Performed By: #### CBC #### [facility] [address] [address] [address] Britt HernandezUAL DIFF REQNONormalThe [facility] Orthopedic CenterComment on above: Performed By: #### CBC #### [facility] [address] [place] [address] Dr. Britt Johns (RBC) [Entitic mass]31.2 tdAqjdyw03.9-34.0The [facility] CenterComment on above:Performed By: #### CBC #### [facility] [address] [place] [address] Dr. Britt Johns (RBC) [Mass/Vol]34.0 g/sHOlwnvg93.9-35.2The [facility] CenterComment on above:Performed By: #### CBC #### [facility] [address] [place] [address] Dr. Britt Johns (RBC) [Entitic vol]91.7 sPBgikxo95.0-94.0The [facility] CenterComment on above:Performed By: #### CBC #### [facility] [address] [address] [address] Britt Ba #0.5 103/ulNormal0.3-0.8The [facility] CenterComment on above:Performed By: #### CBC #### [facility] [address] [place] [address] Dr. Britt Rodriguezocytes/100 WBC (Bld)6.8 %Normal1.7-12.0The [facility] Comment on above:Performed By: #### CBC #### [facility] [address] [place] [address] Dr. Britt Nichols #5.0 103/ulNormal1.4-6.5The [facility] CenterComment on above:Performed By: #### CBC #### [facility] [address] [place] [address] Dr. Britt Carrilloutrophils/100 WBC (Bld)65.6 %Vbwbex95.0-75.0The [facility] CenterComment on above:Performed By: #### CBC #### [facility] [address] [place] [address] Dr. Britt Pierce mean volume (Bld) [Entitic vol]9.7 fLNormal9.5-13.5The [facility] CenterComment on above:Performed By: #### CBC #### [facility] [address] [place] [address] Dr. Britt WuT244 103/tiQhhoeg260-548Tbv [facility] CenterComment on above: Performed By: #### CBC #### [facility] [address] [place] [address] Dr. Britt MendozaRBC4.71 106/ulNormal4.70-6.10The [facility] CenterComment on above:Performed By: #### CBC #### [facility] [address] [place] [address] Dr. Britt MendozaWBC7.6 103/ulNormal4.0-11.0The [facility] CenterComment on above: Performed By: #### CBC #### [facility] [address] [address] [address] Britt MendozaGLYCOHEMOGLOBIN A1Con 54-44-2484XVS RECOMMENDATIONSEE BELOWNewark HospitalComment on above:Result Comment: ADA RECOMMENDED LIMIT 4.0 - 6.0 ADA THERAPEUTIC TARGET < 7.0 ACTION SUGGESTED > 7.0Performed By: #### A1C ####[facility] [address] [address]DrAtiya MendozaGlucose [Mass/Vol]117 mg/dLNoNationwide Children's HospitalComment on above:Performed By: #### A1C ####[facility] [address] [address]Dr.Yilan MendozaHbA1c (Bld) [Mass fraction]5.7 %Normal 4.5-6.2The [facility] CenterComment on above:Performed By: #### A1C ####[facility] [address] [place], [place] [address]Dr.Yilan MendozaLIPID PROFILEon 80-93-7399NKYK-HDL RATIO NORMSEE [facility] Comment on above:Result Comment: 3.3 - 4.4 LOW RISK 4.4 - 7.1 AVERAGE RISK 7.1 - 11.0 MODERATE RISK >11.0 HIGH RISKPerformed By: #### BMP, LIVER, LIPID, TSH ####[facility] [address] [address]DrAtiya MendozaCholesterol [Mass/Vol]235 mg/dLCritically high<=200The [facility] Orthopedic CenterComveterans affairs medical center on above:Performed By: #### BMP, LIVER, LIPID, TSH ####[facility] [address] [address]DrAtiya Mendoza Cholesterol in HDL [Mass/Vol]40 mg/mUJwldek50-24SmoParma Community General HospitalComveterans affairs medical center on above:Performed By: #### BMP, LIVER, LIPID, TSH ####[facility] [address] [place], [place] [address]Dr. Yilan ChangCholesterol in LDL [Mass/Vol]156.8 mg/dLWood County HospitalComment on above:Performed By: #### BMP, LIVER, LIPID, TSH ####[facility] [address] [address]Dr. Anjalilan ChangCholesterol.total/Cholesterol in HDL [Mass ratio]5.9 {ratio}NormalParma Community General HospitalComment on above:Performed By: #### BMP, LIVER, LIPID, TSH ####[facility] [address] [address]Dr. Yilan ChangHDL NORMAL> or = 60 mg/dl - LOW CARDIOVASCULAR RISK <40 mg/dl - HIGH CARDIOVASCULAR RISKWood County HospitalComment on above:Performed By: #### BMP, LIVER, LIPID, TSH ####[facility] [address] [address]Dr. Yilan ChangLDL CALC NORMALSEE BELOWNoNationwide Children's HospitalComment on above:Result Comment: <100 mg/dl OPTIMAL 100 - 129 mg/dl NEAR OR ABOVE OPTIMAL 130 - 159 mg/dl BORDERLINE HIGH 160 - 189 mg/dl HIGH >190 mg/dl VERY HIGHPerformed By: #### BMP, LIVER, LIPID, TSH ####[facility] [address] [address]Dr. Anjalilan ChangTriglyceride [Mass/Vol]191 mg/dLCritically high<=150[facility] on above:Performed By: #### BMP, LIVER, LIPID, TSH ####[facility] [address] [address]Dr. Anjalilan ChangVLDL CALC38.2 mg/dLNoNationwide Children's HospitalComment on above: Performed By: #### BMP, LIVER, LIPID, TSH ####[facility] [address] [address]Dr. Anjalilan ChangLIVER PROFILEon 05-07-2022 Albumin [Mass/Vol]3.6 g/dLNormal3.4-5.0The [facility] CenterComment on above: Performed By: #### BMP, LIVER, LIPID, TSH ####[facility] [address] [address]Dr. Yilan ChangAlbumin/Globulin [Mass ratio] 1.1 {ratio}NormalThe [facility]opedic CenterComment on above:Performed By: #### BMP, LIVER, LIPID, TSH ####[facility] [address] [address]Dr. Yilan ChangALP [Catalytic activity/Vol]84 U/VDazyly34-714Dbr [facility] CenterComment on above:Performed By: #### BMP, LIVER, LIPID, TSH ####[facility] [address] [address]Dr. Yilan ChangALT [Catalytic activity/Vol]34 U/JYptkna79-91Kln [facility] Comment on above:Performed By: #### BMP, LIVER, LIPID, TSH ####[facility] [address] [place], [place] [address]Dr. Yilan ChangAST [Catalytic activity/Vol]21 U/BDhsxyf06-77Pfm [facility] CenterComment on above:Performed By: #### BMP, LIVER, LIPID, TSH ####[facility] [address] [place], [place] [address]Dr. Yilan ChangBILI, CONJUGATED0.1 mg/dLNormal0.0-0.[address] [facility] God Hospitalment on above:Performed By: #### BMP, LIVER, LIPID, TSH ####[facility] [address] [address]Dr. Yilan ChangBilirubin [Mass/Vol]0.4 mg/dLNormal0.2-1.0[facility] Comment on above:Performed By: #### BMP, LIVER, LIPID, TSH ####[facility] [address] [place], [place] [address]Dr. Yilan ChangGlobulin (S) [Mass/Vol]3.4 g/dLNormalThe [facility] CenterComment on above:Performed By: #### BMP, LIVER, LIPID, TSH ####[facility] [address] [place], [place] [address]Dr. Yilan ChangProtein [Mass/Vol]7.0 g/dLNormal6.4-8.2 The [facility] CenterComment on above:Performed By: #### BMP, LIVER, LIPID, TSH ####[facility] [address] [address]Dr. Britt MendozaPROF CHEM 8 (BAS METB)on 21-96-2392Ejybo gap [Moles/Vol]13.8 mmol/L NormalThe [facility]opedic CenterComment on above:Result Comment: Previously reported as: -2.3 On 05/07/2022 13:50 By LX2Welbqyuqo By: #### BMP, LIVER, LIPID, TSH #### [facility] [address] [address] [address] Britt MendozaCalcium [Mass/Vol]9.2 mg/dLNormal8.5-10.1The [facility] Comment on above:Performed By: #### BMP, LIVER, LIPID, TSH #### [facility] [address] [address] [address] Britt MendozaChloride [Moles/Vol]99 mmol/LCsudkw61-597Bdp [facility] Comment on above:Result Comment: Previously reported as: 106 On 05/07/2022 13:50 By PT7Winoqzwet By: #### BMP, LIVER, LIPID, TSH #### [facility] [address] [address] [address] Brtit MendozaCO2 [Moles/Vol]27.3 mmol/QVljesn77.0-32.0The [facility] Comment on above:Result Comment: Previously reported as: 29.2 On 05/07/2022 13:50 By SE4Kpvstulal By: #### BMP, LIVER, LIPID, TSH #### [facility] [address] [address] [address] Britt MendozaCreatinine [Mass/Vol]1.12 mg/dLNormal0.70-1.30The [facility] CenterComment on above:Performed By: #### BMP, LIVER, LIPID, TSH #### [facility] [address] [address] [address] Britt SueGFR-AF CHILEAN>60Normal>=60The [facility] CenterComment on above:Performed By: #### BMP, LIVER, LIPID, TSH #### [facility] [address] [address] [address] Britt SueGFR-NON AF CHILEAN>60Normal>=60The [facility] CenterComment on above:Performed By: #### BMP, LIVER, LIPID, TSH #### [facility] [address] [address] [address] Britt MendozaGlucose [Mass/Vol]108 mg/dLCritically fmhk50-297Tpy [facility] CenterComment on above:Performed By: #### BMP, LIVER, LIPID, TSH #### [facility] [address] [address] [address] Britt MendozaPotassium [Moles/Vol]4.1 mmol/LNormal3.5-5.1The [facility] Comment on above:Result Comment: Previously reported as: 3.9 On 05/07/2022 13:50 By HX4Lgewnloun By: #### BMP, LIVER, LIPID, TSH #### [facility] [address] [place] [address] Dr. Britt MendozaSodium [Moles/Vol]136 mmol/JWsyikg274-401Eyt [facility] Comment on above:Result Comment: Previously reported as: 129 On 05/07/2022 13:50 By SK8Dejdvcugz By: #### BMP, LIVER, LIPID, TSH #### [facility] [address] [address] [address] Britt MendozaUrea nitrogen [Mass/Vol]26.0 mg/dLCritically high7.0-18.0The [facility] CenterComment on above:Performed By: #### BMP, LIVER, LIPID, TSH #### [facility] [address] [address] [address] Britt Suárez nitrogen/Creatinine [Mass ratio]23.2 mg/mgNormalThe [facility] CenterComment on above:Performed By: #### BMP, LIVER, LIPID, TSH #### [facility] [address] [address] [address] Britt Leiva 40-86-6708XYF6.828 uIU/mLNormal0.358-3.740Par[facility] Community General HospitalComment on above:Performed By: #### BMP, LIVER, LIPID, TSH ####[facility] [address] [address]Dr. Britt Mendoza VITAMIN D 25 OHon 24-45-2374LAJ D 25-OH45.6 ng/mLNormalParma Community General Hospital Comment on above:Performed By: #### VITAD, PSASC #### [facility] [address] [address] [address] Britt Aj [facility] HospitalComment on above: Result Comment: <20 ng/mL Vit D deficient 20 - <30 ng/mL Vit D insufficient 30 - 100 ng/mL Vit D sufficient >100 ng/mL Potential ToxicityPerformed By: #### VITAD, PSASC #### [facility] [address] [address] [address] Britt MendozaCovid-19 PCR (CVDTBH)on 24-54-7426GTFI-CoV-2 (COVID-19) RNA KATT+probe Ql (Unsp spec)DetectedCritically abnormalNOT DETECTEDThe [facility] Orthopedic CenterComment on above:Result Comment: This test is not yet approved or cleared by the [place] FDA. When there are no FDA-approved or cleared tests available, and other criteria are met, FDA can make tests available under an emergency access mechanism called an Emergency Use Authorization (EUA). The EUA for this test is supported by the [place] of Health and Human Service's declaration that [...] mayno longer be used).Performed By: #### CVDTBH ####[facility] [address] [address]Dr. Britt Mendoza Cardiac Stress Teston 92-82-2039Ykrzyrs Stress TestNoDuke Health [address] [place] [address], [address], [address] [address] Exercise Stress Test Patient Name: LILIANA MICHAELS JR. Ordering Physician: [id number] Ty MD Study Date: 02/15/2022 Reading Physician: [id number] Ty MD MRN/PID: [id number] Supervising Physician: [id number] Yovani Rivera MD Accession/Order#: [id number] Referring Physician: VALENTINO TY Date of : 1965 PCP: Ishmael Simon Gender: M Fellow: Height: 162.56 cm Nurse: Yunior Bhatti RN Weight: 81.65 kg Collar Sewer: SAEID BSA: 1.87 m2 Technologist: BMI: 30.90 kg/m2 Additional Staff: Age: 56 years cc report to: Patient Location: cc report to: [id number] Valentino Ty MD Study Type: Cardiac Stress Test Diagnosis/ICD: R94.31-Abnormal electrocardiogram [ECG] [EKG]; R00.1-Bradycardia, unspecified; R06.00-Dyspnea, unspecified Indication: Dyspnea Procedure/CPT: Stress Test Interpretation-26216; Stress Test Supervision-38712 Falls Risk: Low: Patient has low risk [...] 7. An element of chronotropic incompetency noted. [id number] Valentino Ty MD Electronically signed on 02/16/2022 at 2:52:20 PM Final NormalWeisbrod Memorial County HospitalCardiac Stress TestPlease click on the link to view the study [facility] Work Phone: Cardiac Stress TestLourdes Medical Center [facility] [address] DO Work Phone: Office Visit (Cardiology)on 78-33-8195Nnkytl-up visit Diagnoses/Problems Assessed Sinus bradycardia (427.89) (R00.1) [...] we can help. You may also call [phone] for free resources and assistance.; Status:Complete - Retrospective Authorization; Done: 52Rxq7849 SocHx: Current smoker Continue with our present treatment plan.; Status:Complete - Retrospective Authorization; Done: 40Xnc8505 Tobacco Use Screening; Status:Complete; Done: 74Pgj9154 Patient Instructions Please bring all medicines, vitamins, [...] This led to a cardiac evaluation in [place] and its not clear to me whether [...] Oral Capsule Delayed ReleaseTAKE 1 CAPSULE Daily Thbkah0l at bedtime Sin (more content not included)...NormalUH TouchworksTobacco Screening.on 02-81-4846Ctucc depression screening assessmentNoLourdes Medical Center CRAVESaint [facility] [employer] DO Work Phone: Fall risk assessmenta) No falls within the last year [facility] 600 DO Work Phone: Tobacco use status CPHSa) YesOwat[facility] Clinic [employer] DO Work Phone: Tobacco Screening.YesPerham Health Hospital 600 DO Work Phone: [phone]-16 PCR (CVDTBH)on 41-94-7923MMLW-CoV-2 (COVID- 19) RNA KATT+probe Ql (Unsp spec)Not detectedNormalNOT DETECTEDThe [facility] on above:Result Comment: This test is not yet approved or cleared by the [place] FDA. When there are no FDA-approved or cleared tests available, and other criteria are met, FDA can make tests available under an emergency access mechanism called an Emergency Use Authorization (EUA). The EUA for this test is supported by the [place] of Health and Human Service's (HHS's) declaration [...] consistent with SARS-CoV-2.Performed By: #### CVDTB #### [facility] [address] [place], [place] [address] Dr. Britt Hylton-19 PCR ([facility])on 47-09-9202MVUW-CoV-2 (COVID-19) RNA KATT+probe Ql (Unsp spec)Not detectedNormalNOT DETECTEDThe [facility] Comment on above:Result Comment: This test is not yet approved or cleared by the [place] FDA. When there are no FDA-approved or cleared tests available, and other criteria are met, FDA can make tests available under an emergency access mechanism called an Emergency Use Authorization (EUA). The EUA for this test is supported by the [place] of Health and Human Service's (HHS's) declaration [...] symptoms consistent with SARS-CoV-2.Performed By: #### CVDTBH ####[facility] [address] [place], [place] [address]TfDr. Britt MendozaXR CHEST 2 Von 93-61-5399GO CHEST 2 VEXAMINATION: XR CHEST 2 V [...] Electronically authenticated by: FLEX JACOBS Date: 2021-10-01 09:30Wood County HospitalAmbulatory Clinical Summaryon 12-49-1748Wnmbyynukz Clinical Summary{96-o8-y7-65-39-9h-3e-85-hz-k3-s1-27-58-d2-cf-8d}CD:386352FhgageGeenuoCleveland Clinic Mentor HospitalHistorical Records Officeon 03-56-8242Mxhpkivknp Records [id number]#1.00CD:127NoCleveland Clinic Mentor HospitalPatient Educationon 71-67-5999Hcusszi EducationUrology Erectile Dysfunction Erectile dysfunction (ED) is [...] these instructions at home: Medicines ? Take tctq-hdm-azuyvdz and prescription medicines only as told by [...] swelling of your (more content not included)... [facility] HospitalUrology Office/Clinic Noteon 84-27-6885Uheuwfn Office/Clinic NoteChief Complaint OV for ED HPI [...] still having trouble maintaining erections and achieving gwvj644% strength. discussed penile injection therapy but pt is adamantly opposed. discussed penile pump/ring and he would like to give this a try. provided brochure to order. Ordered: Office Visit Level 4 Est 05439 2. Hypogonadism male (E29.1: Testicular hypofunction) noted [...] time. Ordered: Office Visit Level 4 Est 65719 3. BPH with urinary obstruction (N40.1: Benign prostatic hyperplasia with lower urinary tract symptoms) s/p Urolift September 2018. Pt is currently taking no bladder/prostate medication and is mostly satisfiedwith overall symptom control. has nocturia but attributes this to diuretics. Pt prefers to continuewith no changes at this time. PCP checking PSAs per pt. Ordered: Office Visit Level 4 Est 11053 Orders: Urnls Dip Stick Auto w/o Microscopy POC 14017 offered f/u 1 yr but pt prefers PRN. Total time spent reviewing previous notes/results/external documents, preparing the chart, conducting the encounter with the patient and family, ordering tests/medications, and documenting the encounter was 30 minutes. Follow-up With When Contact Information ITA SLOAN, SIMONE Priest [address] [place] [address]- Additional Instructions: Patient Education Erectile [...] mcg-25 mcg inhalation powde (more content not included)...[facility] HospitalComment on above:Result Comment: Electronically Signed By: DANIEL MARTINEZ, TOMEKA Muse.br\Date and Time Signed: 03/05/2112:24 EDTMRI PELVIS WO CONTRASTon 90-03-4238GJE PELVIS WO CONTRAST [facility] Department of Radiology [address] [place] [address] Patient Name: LILIANA MICHAELS : 1965 Sex: M Age: Race: White Pt. Location: 18 Patient Status: Ordered Date: 09/10/2020 3:35:00 PM Completed Date: 10/03/2020 08:34 AM Requesting Provider: SIMONE RUIZ Attending Provider: Report Copy To: Signs & Symptoms: R10.2 Pelvic and perineal pain I10 History: Lenore, Right FOREIGN per clinic will fax [facility] auth# [id number] 09/16/20-10/17/20 cpt code 32166 *mla Comments: Right groin to r/o an [...] spine. Electronically signed: Dinh Miller. Transcribed by: [email or web address], User Resident: Electronically Signed by: DINH MILLER @ 10/03/2020 09:57 AMNormalThe University Hospitals Geauga Medical CenterComment on above:Order Comment: Right groin to r/o an adductor tear; iliopsoas bursitis or injuryOperative Reporton [id number] ReportMR#: [id number] [facility] Pt. Name: Liliana Michaels Room [...] Ruiz MD Date Trans: 09/10/2020 11:40 P/eva DN_JN:[id number] cc: Ishmael Simon M.D. [address] [place] [address]FzilslEdcKettering Health Behavioral Medical CenterCoding Summary.on 39-74-2638Whhoje Summary. CD:[id number]+PGhlYWQ+AK5RAYLyT24fyTVevC6RQ6tXBM7ZWOSDMKCWHJ6IVZ8cr DV1UUfrU0AljkPz [file] OiBj (more content not included)...NormalDiley Ridge Medical CenterAuto Diffon 36-41-8830Mxtysqvyl/100 WBC (Bld)1.0 %Normal0.0-2.0[facility] Comment on above:Order Comment: Order Added by Discern Expert.Performed By: #### 12802524, 6470308, 8092999, 66344723, 9539107, 8562533, 46459164, 53537107 ####[address] [place] [address] Basophils/Leukocytes Auto (Bld) [Pure # fraction]0.1 E9/LNormal0.0-0.2FGuernsey Memorial HospitalComment on above:Order Comment: Order Added by Discern Expert.Performed By: #### 19808393, 0641540, 9394444, 82573697, 5824525, 0327691, 05165592, 91286313 ####[address] [place], [place] [address]Durcczvlzjm/100 WBC (Bld)2.5 %Normal0.0-8.0D[facility] Ridge Medical CenterComment on above:Order Comment: Order Added by Discern Expert.Performed By: #### 86795517, 0743857, 8476661, 52921482, 4671147, 3572095, 95360856, 76111136 ####[facility] [address] [place], [place] [address]Skgoddthbcu/Leukocytes Auto (Bld) [Pure # fraction] 0.3 E9/LNormal0.0-0.5FGuernsey Memorial HospitalComment on above:Order Comment: Order Added by Discern Expert.Performed By: #### 19409184, 1071332, 3254559, 03322297, 0538630, 8312175, 32238050, 47699744 ####[address] [place], [place] [address]Lpfsjvrlywb/100 WBC (Bld)21.0 %Normal 14.0-50.0D[facility] Medical CenterComment on above:Order Comment: Order Added by Discern Expert.Performed By: #### 37939473, 4248618, 2071384, 04729905, 7847093, 2539805, 97064876, 60851678 ####[address] [place], [place] [address]Xpsrzfohixy/Leukocytes Auto (Bld) [Pure # fraction]2.1 E9/LNormal1.0-4.0[facility] Medical CenterComment on above:Order Comment: Order Added by Discern Expert.Performed By: #### 87835532, 3273627, 0931131, 07306422, 1281783, 1304694, 70230517, 56820075 ####[address] [address]Cfusibuyf/100 WBC (Bld)6.2 %Normal4.0-14.0D[facility] Medical CenterComment on above:Order Comment: Order Added by Discern Expert.Performed By: #### 54310857, 4597347, 8904612, 18796544, 0668432, 9707936, 59123322, 77393078 ####[address] [address]Fyogcgzlu/Leukocytes Auto (Bld) [Pure # fraction]0.6 E9/LNormal0.2-1.0[facility] Medical CenterComment on above:Order Comment: Order Added by Discern Expert.Performed By: #### 00076461, 9731119, 9921530, 96041139, 5011820, 4895013, 48707045, 14864620 ####[address] [address] Neutrophils/100 WBC (Bld)69.3 %Cstkzp55.0-75.0[facility] Medical CenterComment on above:Order Comment: Order Added by Discern Expert.Performed By: #### 85211874, 6339324, 6236868, 20845914, 2325866, 2194373, 11160633, 22680376 ####[address] [place] [address] Neutrophils/Leukocytes Auto (Bld) [Pure # fraction]6.9 E9/LNormal2.0-7.5FGuernsey Memorial HospitalComment on above:Order Comment: Order Added by Discern Expert.Performed By: #### 35275338, 7816698, 2779642, 44450347, 5061181, 8042832, 46169847, 58565598 ####[address] [address]BXJzk 94-87-6567Qmbvgrlqwl [Mass/Vol]1.1 mg/dL Normal0.5-1.3FGuernsey Memorial HospitalComment on above:Performed By: #### 67312126, 1010585, 4208853, 71422814, 8425419, 6005165, 28663445, 26102015 ####[address] [address]Hejd nitrogen [Mass/Vol]19 mg/dLNormal5-21D[facility] Medical CenterComment on above:Performed By: #### 40819763, 9524173, 9854181, 25999135, 3913730, 9807930, 17849245, 06192253 ####[address] [address]Ltkx nitrogen/Creatinine [Mass ratio]17 No ElrhmOmrblx45-88 [facility] Medical CenterComment on above:Performed By: #### 64969631, 7651200, 2356313, 03206378, 4484433, 5119191, 21245462, 68599806 ####[address] [place], [place] [address]Dobcd gap [Moles/Vol]14 mmol/LNormal6-16D[facility] Medical CenterComment on above: Performed By: #### 21401865, 0104903, 7715765, 66271669, 1175577, 1195748, 01016425, 53327363 ####[facility] [address] [place], [place] [address]Wzijxvs [Mass/Vol]9.4 mg/dLNormal8.9-11.1FGuernsey Memorial HospitalComment on above:Performed By: #### 93633646, 7504339, 9129862, 16113762, 9083699, 3371761, 30484620, 05423425 ####[facility] [address] [place], [place] [address]Rruburck [Moles/Vol]94 mmol/LLow 101-111D[facility] Ridge Medical CenterComment on above:Performed By: #### 63707666, 4411459, 8766055, 24811267, 1347129, 0823136, 85909782, 13561370 ####[facility] [address] [place], [place] [address]BS7 [Moles/Vol] 29 mmol/TEcduba50-71PydaoqDiley Ridge Medical CenterComment on above:Performed By: #### 27723183, 5222159, 1184368, 53996884, 5047574, 2653618, 80370393, 32482257 ####[facility] [address] [place] [address] Glucose [Mass/Vol]103 mg/pBZaqoek76-889GughqhDiley Ridge Medical CenterComment on above:Result Comment: If this glucose result represents a fasting glucose, interpretation should refer tothe following reference range: 55-99 mg/dL Performed By: #### 09894588, 3337290, 1078878, 42180505, 0000732, 7796553, 68093041, 34755961 ####[facility] [address] [place], [place] [address]Rnweicalv [Moles/Vol]4.0 mmol/LNormal3.5-5.3FGuernsey Memorial HospitalComment on above:Performed By: #### 92847110, 5997046, 9696016, 79769367, 6620771, 8051105, 07251968, 08229114 ####[facility] [address] [place], [place] [address]Ureexd [Moles/Vol]133 mmol/LLow 135-145D[facility] Ridge Medical CenterComment on above:Performed By: #### 13705425, 6433534, 0751819, 91775672, 5489098, 2876155, 50813433, 92164671 ####[address] [place], [place] [address]GBJib 08-24-2020 Natriuretic peptide B (Bld) [Mass/Vol]17 pg/mLNormal5-80[facility] Medical CenterComment on above:Performed By: #### 86652516, 4181778, 0614612, 60532763, 7852594, 0509026, 74037672, 00533107 ####[address] [address]KQN w/ Auto Diffon 08-24-2020 Erythrocyte distribution width (RBC) [Ratio]12.9 %Xhhmgc27.9-14.2FGuernsey Memorial HospitalComment on above:Performed By: #### 86532646, 7943234, 7172010, 46696753, 6501627, 2028133, 99502611, 20460003 ####[address] [place], [place] [address]Vuibxhkblm (Bld) [Volume fraction] 44.4 %Ouopro48.7-49.0[facility] Medical CenterComment on above:Performed By: #### 29251517, 3142919, 9306293, 41008969, 6420257, 8817214, 90485042, 30272974 ####[address] [place] [address] Hemoglobin (Bld) [Mass/Vol]15.3 g/mIDtdpmb48.5-17.5FGuernsey Memorial Hospital Comment on above:Performed By: #### 86643709, 5836564, 8356498, 15088875, 9956708, 2910889, 69806657, 54998183 ####[place] [facility] [address] [place] [address]SGX (RBC) [Entitic mass]31.5 pgNormal 27.0-34.0[facility] Medical CenterComment on above:Performed By: #### 80948070, 2985235, 8038520, 78391142, 5395141, 3918339, 36582229, 37751141 ####[address] [address]TBRJ (RBC) [Mass/Vol]34.4 g/fSAiighw38.4-36.0[facility] Medical CenterComment on above:Performed By: #### 06239366, 7398677, 8523108, 35372802, 7869253, 8572320, 38413762, 46219794 ####[address] [address]XYM (RBC) [Entitic vol]91.6 aFZedere66.0-100.0[facility] CenterComment on above:Performed By: #### 20680174, 5747412, 7232652, 97133041, 1007084, 9951332, 39402769, 44657336 ####[address] [address]Huwpqlqj mean volume (Bld) [Entitic vol]8.4 fLNormal6.4-10.8[facility] CenterComment on above:Performed By: #### 19061369, 2805324, 3989336, 64962747, 3136973, 2645205, 37780347, 97393886 ####[address] [address]Twdxpxaby (Bld) [#/Vol]289.0 E9/EUjfsdc090.0-500.0[facility] Medical CenterComment on above:Performed By: #### 13469786, 3391455, 0155135, 19418624, 4186414, 9488856, 69373616, 47457173 ####[facility] [address] [place], [place] [address]INH (Bld) [#/Vol]4.8 E12/LNormal 4.3-5.9[facility] Medical CenterComment on above:Performed By: #### 15429876, 2439372, 3904320, 48037760, 3763859, 0349958, 24450748, 63168200 ####[facility] [address] [place], [place] [address]BYM corrected for nucl RBC Auto (Bld) [#/Vol]9.9 E9/LNormal4.0-11.0[facility] Comment on above:Performed By: #### 92627579, 6069655, 0058227, 05604151, 7568742, 6563868, 01742249, 53479608 ####[facility] [address] [place], [place] [address]ZKX Cheston 08-79-7210LEB ChestExam Date/Time: 08/24/2020 01:56 EDT Reason for [...] Contrast: Isovue 370 Contrast amount in ml's: 78NoCleveland Clinic Mentor HospitalConsent for Treatmenton 91-34-7148Wdttdsj for Treatment [id number]#1.00CD:127McCullough-Hyde Memorial HospitalD-Dimeron 18-53-7412Ehmnmd D-dimer FEU (PPP) [Mass/Vol]845 ng/mLAbnormal 215-500[facility] Medical CenterComment on above:Result Comment: Results Verified By Repeat [...] skin infections Liver cirrhosis PregnancyPerformed By: #### 31700597, 9354204, 1460836, 87897331, 4896567, 7626340, 50746806, 14238967 ####[facility] [address] [place], [place] [address]Fngzeilik Instructionson 49-85-4463Inbujgrzi [id number]#1.00CD:127NoSelect [facility] Clinical Summaryon 34-03-6554NW Clinical Summary [address] [address] ED Clinical Summary Person Information Name: LILIANA MICHAELS [facility]ine[facility] Age: 55 Years : 1965 Sex: Male Language: Occitan PCP: SIMOEN JEAN BAPTISTE DC Marital Status: Single Phone: [phone] Visit Id: Visit Reason: Rib/trunk pain-swelling; SIDE [...] 08/24/2020 03:27:58 08/24/2020 03:27:58 08/24/2020 03:27:58 ADDRESS: [address] [place] [phone] PHYS DOC NOTES: MEDICAL INFORMATION: Prescriptions Given: New Medications [id number], [address], [place] [id number], [phone] azithromycin (Zithromax TRI-AMIRA 500 mg oral tablet) [...] With: Address: When: SIMONE JEAN BAPTISTE [address] [place] [address] [facility] (1) In 1 day 08/25/2020 Comments: Patient is advised to follow-up with his primary care physician in 1 to 2 days. He is also advised to come back to the emergency department if symptoms get worse. DIAGNOSIS: 1:Rib pain on left sideNoalFisher Parth Medical CenterED Note-Physicianon 18-49-3016AU Note-PhysicianBasic Information Time Seen: Pia LANE, David [...] will be provided with Lidoderm patch and Z-Maira. Assessment/Plan 1. Rib pain on left side (R07.81: Pleurodynia) Ordered: lidocaine topical, 1 patch(es), Patch, TransDermal, Once, Stop date 08/24/20 2:30:00 EDT, STAT, Start date 08/24/20 2:30:00 EDT Rapid COVID Antigen ([facility]) Orders: albuterol-ipratropium, 3 mL, Soln-Inh, Inhalation, Once, Stop date 08/24/20 0:16:00 EDT, STAT, Start date 08/24/20 0:16:00 EDT azithromycin, 500 mg = 1 tab(s), Oral, Daily, # 3 tab(s), Refills(s) 0, Pharmacy: [id number], 163, cm, 08/24/20 0:04:00 EDT, [...] 08/24/20 0:04:00 EDT, Julian (more content not included)...[facility] Memorial HospitalComment on above:Result Comment: Electronically Signed By: Pia LANE, David\.br\Date and Time Signed: 08/24/20 03:10 EDTED Patient Education Noteon 65-89-9986UU Patient Education NoteChest Pain (Nonspecific) It is [...] Document Reviewed: 11/28/2008 ExitCare? Patient Information ?2015 SKINNYprice. This information is not intended to replace advice given to you by your health care provider. Make sure you discuss any questions you have with yourhealth care provider.[facility] Patient Summaryon 31-36-7914QN Patient Summary [address] [address] Patient Discharge Instructions Person Information Name: LILIANA MICHAELS Age: 55 Years Arrival Date: 08/23/2020 23:48:11 Discharge Diagnosis: 1:Rib pain on left side Primary Care Physician: SIMONE JEAN BAPTISTE DC Provider Information Primary Provider: Pia LANE, David Advanced [employer] Consultant:None The exam and treatment you received in the Emergency Department were for an urgent problem and are not intended as complete care. It is important that you follow up with a doctor, nurse practitioner,or physician?s assistant professor of communication for ongoing care. If your symptoms become worse or you do not improve as expected and you are unable to reach your usual health care provider, you should return to the Emergency Department. We are available 24 hours a day. LILIANA MICHAELS has been given the following list of patient education materials, prescriptions andfollow-up instructions: Follow-up Instructions: With: Address: When: SIMONE ITA [address] [place] [address] Business (1) In 1 day 08/25/2020 Comments: [...] opioids can be used to help relieve dbovqofx-kn-eystim pain and are often prescribed following a [...] your community drug take- back program or yourpullman regional hospitaliStorez mail-back program, or flush them down the toilet, following guidance from the Food and Drug Administration (www.fda.gov/Drugs/ResourcesForYou). ? Visit www.cdc.gov/drugoverdose to learn about the risks of opioids abuse and overdose. ? If you believe you may be struggling (more content not included)...Normal [facility] CenterPT & PTTon 60-62-6964sEVH Coag (PPP) [Time]30.2 second(s)Uwqwbu65.1-36.5FGuernsey Memorial HospitalComment on above:Result Comment: Heparin therapeutic range (represented by Anti-Factor Xa activity of 0.2 - 0.4 U/mL) corresponds to PTT of 56.6 - 109.0 sec.Performed By: #### 95268339, 3044541, 3427948, 72823002, 8079426, 2375315, 36285646, 10912474 ####[facility] [address] [place], [place] [address]QOD Coag (PPP) [Relative time]1.0 {INR}Invalid Interpretation CodeDiley Ridge Medical Center Comment on above:Result Comment: INR results are specifically intended to assess patients stabilized on long-term Anticoagulation therapy suggested INR?s ?Less Intensive Anticoagulation? 2.0 ? 3.0 Conventional Range 3.0 ? 4.5Performed By: #### 02758690, 0949863, 9889039, 80584564, 7184292, 8854344, 87208179, 05886405 ####[facility] [address] [place], [place] [address]RD Coag (PPP) [Time]11.6 second(s) Vivgwm41.2-12.9D[facility] Medical CenterComment on above:Performed By: #### 51558169, 1372168, 8429126, 38274096, 6773013, 1771951, 94396807, 90129972 ####[facility] [address] [place], [place] [address]EPK - Preliminary Cat Scan Reporton 83-86-2725UKW - Preliminary Cat Scan Report [id number]#1.00CD:127NormalDiley Ridge Medical CenterRapid COVID Antigen ([facility])on 53-86-5479Jjpxb COV Int NEG CtlPassNormal [facility] Medical CenterComment on above:Performed By: #### [id number] ####[facility] [address] [facility] ZH92524Yaxmv COV Int POS CtlPassNormalDiley Ridge Medical CenterComment on above:Performed By: #### [id number] ####[facility] [address] [facility], [id number]-SgA-1 (COVID-19) RNA KATT+probe Ql (Unsp spec)Not detectedNormalNot DetectedDiley Ridge Medical CenterComment on above:Result Comment: The Path101 System for Rapid Detection of SARS-CoV-2 is [...] any otherviruses or pathogens; and, in the [facility], this test is only authorized for the duration of the declaration that circumstances exist justifying the authorization of emergency use of in vitro diagnostics for detection and/or diagnosis of the virus that causes COVID-19 under Section 564(b)(1) of the Act,21 U.S.C. ? 360bbb-3(b)(1), unless the authorization is terminated or revoked sooner.Performed By: #### [id number] ####[address] [place] [address], [place]Paozjguw in Healthcare Wayne HospitalComment on above:Performed By: #### [id number] ####[address] Mills AveNoreastern niagara hospital, [place], [place] [address]Qcwoi TestUnknownNMercy Health Urbana HospitalComment on above: Performed By: #### [id number] ####[address] Mills AveNoreastern niagara hospital, [place]k, [place]Rkxlednwjxof?[facility] Comment on above:Performed By: #### [id number] ####[address] Mills AveNyale new [facility], IF[address]031FAFWWThkckhVtdluuParkwood Hospital Comment on above:Performed By: #### [id number] ####[address]Nor[place], KK[address]Gdnthlut?Wayne HospitalComment on above:Performed By: #### [id number] ####[address] [place] AveNorwalk, FI[address]Wiwgnag in a Congregate Care SettingWayne HospitalComment on above:Performed By: #### [id number] ####[facility] [address] [place] Ave[place], [place] [address]Qwiolmjrwxn as defined by [facility]ITALYESMcCullough-Hyde Memorial HospitalComment on above:Performed By: #### [id number] ####[facility] [address] [place], [place]Troponin 0 Hr.on 96-14-7874Zumbuijx I.cardiac [Mass/Vol]4.10 pg/mLLow15.90-38.40D[facility] Medical CenterComment on above:Result Comment: The 95% CI (Confidence Interval) PPV (Positive Predictive Value) for myocardial infarction in females is 38 pg/mL, in males 51 pg/mL. The results should be used in conjunction with clinical conditions of myocardial infarction. (Access High Sensitivity Troponin I Instructions For Use, Public Solution, December 2017)Performed By: #### 14499090, 7456041, 4722567, 74195763, 4482863, 6076403, 34542199, 43749977 ####[facility] [address] [place], [place] [address]Odxegcbi 3 Hr.on 54-45-1329Gowcaglh I.cardiac [Mass/Vol]4.40 pg/mLLow15.90-38.40[facility] Medical CenterComment on above: Result Comment: The 95% CI (Confidence Interval) PPV (Positive Predictive Value) for myocardial infarction in females is 38 pg/mL, in males 51 pg/mL. The results should be used in conjunction with clinical conditions of myocardial infarction. (Access High Sensitivity Troponin I Instructions For Use, Public Solution, December 2017)Performed By: #### [id number] ####[address] [place], [place] [address]LV Chest Single Viewon 07-86-4496CD Chest Single ViewExam Date/Time: 08/24/2020 01:04 EDT [...] Reis MD, V. Transcribed by: VIVIAN Technologist: BrianDiley Ridge Medical CentereGFRon 51-00-0952EAD/1.73 sq M.predicted among blacks MDRD (S/P/Bld) [Vol rate/Area] mL/min/{1.73_m2}Normal>=59D[facility] Medical CenterComment on above:Order Comment: Order added by Discern Expert.Result Comment: eGFR is race adjusted. AA=.Performed By: #### 11145990, 5947449, 0643057, 01685433, 8521624, 4509872, 73229258, 32494941 ####[facility] [address] [place], [place] [address]MIM/1.73 sq M.predicted among non- blacks MDRD (S/P/Bld) [Vol rate/Area]mL/min/{1.73_m2}Normal>=59D[facility] Medical CenterComment on above:Order Comment: Order added by Discern Expert. Result Comment: Chronic kidney disease could be indicated at eGFR's of less than 60 mL/min/1.73m2. Kidney failure is indicated at less than 15 mL/min/1.73m2. Performed By: #### 11798570, 6813811, 0341481, 49108633, 9903735, 4064133, 81808041, 72245326 ####[facility] [place], [place] [address]ALL RIGHT 1 OR 2 VWS WITH PELVISon 12-24-4536RJT RIGHT 1 OR 2 VWS WITH PELVISUnOur Lady of [facility]cy [facility] Department of Radiology [address] [place] [address] Patient Name: LILIANA MICHAELS : [...] Electronically signed: Ana M Mariee. Transcribed by: [email or web address], User Resident: Electronically Signed by: ANA M MARIEE @ 07/24/2020 10:01 AMNCincinnati Children's Hospital Medical CenterComment on above:Order Comment: Views (X-RAY, HIP): Radiologic ProtocolHIP RIGHT 1 OR 2 VWS WITH PELVISon 61-23-4225IVU RIGHT 1 OR 2 VWS WITH PELVISUnOur Lady of Mercy [facility] Department of Radiology [address] [place] [address] Patient Name: LILIANA MICHAELS : 1965 [...] abnormality. Electronically signed: Ed España. Transcribed by: [email or web address], User Resident: Electronically Signed by: ED ESPAÑA @ 04/25/2020 08:22 AMNormalThe University Hospitals Geauga Medical CenterComment on above:Order Comment: Views (X-RAY, HIP): Radiologic ProtocolOperative Reporton 16-83-7282Yqmpcvaom ReportMR#: [id number] [facility] Pt. Name: Liliana Michaels Room #: 6AB [id number] Discharge 03/15/2020 Date: Birthdate: 1965 OPERATIVE REPORT DATE OF SURGERY: 03/14/2020 SURGEON: Jey Munguia MD PREOPERATIVE DIAGNOSIS: Right hip degenerative joint disease. POSTOPERATIVE DIAGNOSIS: Right hip degenerative joint disease. OPERATIVE PROCEDURE DONE: Right total hip arthroplasty through a direct anterior approach. ASSISTANTS: 1. David Pratt M.D. 2. Donrtell Gordillo SA. ESTIMATED BLOOD LOSS: 100 mL. [...] the correct a (more content not included)...NormalThe University Hospitals Geauga Medical CenterBASIC METABOLIC PANELon 78-82-2475Mslbfit [Mass/Vol]8.8 mg/dLNormal8.6-10.3The [facility] Medical CenterComment on above:Order Comment: Views (X-RAY, HIP): Radiologic ProtocolPerformed By: #### [address] ####[facility] [place] [address], USAChloride [Moles/Vol]98 mmol/PZldqxv19-953Bed [facility] CenterComment on above:Order Comment: Views (X-RAY, HIP): Radiologic ProtocolPerformed By: #### [address] ####[facility] [place] [address], [facility]ICAL CENTERCO2 [Moles/Vol]30 mmol/L Remwvu40-06Gtn [facility] CenterComment on above:Order Comment: Views (X-RAY, HIP): Radiologic ProtocolPerformed By: #### 16112 ####[facility] [facility] [place] [address], [facility] Creatinine [Mass/Vol]0.96 mg/dLNormal0.70-1.30The [facility] Medical CenterComment on above:Order Comment: Views (X-RAY, HIP): Radiologic Protocol Performed By: #### 257[address] ####[facility] [facility] [place] [address], USAGFR/1.73 sq M.predicted among blacks MDRD (S/P/Bld) [Vol rate/Area]mL/min/{1.73_m2}Normal>60The [facility] Comment on above:Order Comment: Views (X-RAY, HIP): Radiologic ProtocolPerformed By: #### 77250 ####[facility] [facility] [place] [address], USAGFR/1.73 sq M.predicted among non-blacks MDRD (S/P/Bld) [Vol rate/Area]mL/min/{1.73_m2}Normal>60The [facility] Comment on above:Order Comment: Views (X-RAY, HIP): Radiologic ProtocolPerformed By: #### 29643 ####[facility] [facility] [place] [address], USAGlucose [Mass/Vol]151 mg/hUYkve28-736Cox [facility] CenterComment on above:Order Comment: Views (X-RAY, HIP): Radiologic ProtocolPerformed By: #### 937[address] ####[facility] [place] [address], USAPotassium [Moles/Vol]4.4 mmol/LNormal3.5-5.1 The [facility] Medical CenterComment on above:Order Comment: Views (X- RAY, HIP): Radiologic ProtocolPerformed By: #### 21198 ####[facility] [place] [address], USASodium [Moles/Vol]133 mmol/GXkw963-099Xsx [facility] CenterComment on above:Order Comment: Views (X-RAY, HIP): Radiologic ProtocolPerformed By: #### 33429 ####[facility] [facility] [place] [address], [place] Urea nitrogen [Mass/Vol]20 mg/dLNormal7-25The [facility] CenterComment on above:Order Comment: Views (X-RAY, HIP): Radiologic Protocol Performed By: #### 25646 ####[facility] [facility] [place] [address], USACBC COMPLETE BLOOD COUNTon 10-73-1647Svcspqtuqnv distribution width (RBC) [Ratio]12.2 %Xydebg74.5-15.0The [facility] CenterComment on above:Order Comment: No: Do not add to previous draw Performed By: #### [id number] #### [facility] [address] [facility] [place] [address], USAHematocrit (Bld) [Volume fraction]42.2 %Osslxz58.0-50.0The [facility]auga Medical CenterComment on above:Order Comment: No: Do not add to previous drawPerformed By: #### [id number] #### [facility] [address] [facility] [place] [address], USAHemoglobin (Bld) [Mass/Vol]13.9 g/dLHpzctt60.0-17.0The [facility]auga Medical CenterComment on above:Order Comment: No: Do not add to previous drawPerformed By: #### [id number] #### [facility] [address] [place] [address], [facility]H (RBC) [Entitic mass]31.4 fpBgkkjh69.0-33.0The [facility] Medical CenterComment on above:Order Comment: No: Do not add to previous drawPerformed By: #### [id number] #### [facility] [address] [facility] [place] [id number], [facility]HC (RBC) [Mass/Vol]32.9 g/sACflhcv54.0-35.0The [facility] Medical CenterComment on above:Order Comment: No: Do not add to previous drawPerformed By: #### [id number] #### [facility] [address] [facility] [place] [address], [facility]V (RBC) [Entitic vol]95.5 nCVachzm79.0-98.0The [facility] CenterComment on above:Order Comment: No: Do not add to previous drawPerformed By: #### [id number] #### [facility] [address] [facility] [place] [address], USANucleated RBC/100 WBC (Bld) [Ratio]0 %Normal0-0The [facility] Medical CenterComment on above:Order Comment: No: Do not add to previous drawPerformed By: #### 63854 #### [facility] [address] [facility] [place] [place] [address], USAPLAT [id number] 10*3/zWMyzqzp240-184Cbt [facility] CenterComment on above:Order Comment: No: Do not add to previous draw Performed By: #### 63426 #### [facility] [address] [facility] [place] [address], [facility] CENTERRBC (Bld) [#/Vol]4.42 10*6/uLNormal4.20-5.70The [facility] Schmidt [facility] CenterComment on above:Order Comment: No: Do not add to previous drawPerformed By: #### [id number] #### [facility] [address] [place] [address], USAWBC (Bld) [#/Vol]14.44 10*3/uLHigh4.00-10.60The [facility] Medical CenterComment on above:Order Comment: No: Do not add to previous drawPerformed By: #### 60486 #### [facility] [address] [place] [id number], USAPOC GLUCOSE LABon 08-70-2613Nckvoqr [Mass/Vol]193 mg/dLHigh 70-100The [facility] Medical CenterComment on above:Performed By: #### 25517 #### [facility] [address] [facility] [place] [address], USACBC W/DIFFon 80-86-1618DXU IMM GRANS0.2 10*3/uLNormal 0.0-0.2The [facility] Medical CenterComment on above:Performed By: #### 44260 ####[facility] [facility] [place] [address], USAABS NEUTROPHILS8.0 10*3/uLHigh1.6-7.6The [facility] Medical CenterComment on above:Performed By: #### 99616 ####[facility] [facility] [place] [address], USABasophils (Bld) [#/Vol]0.1 10*3/uLNormal0.0-0.2The [facility] Medical CenterComment on above: Performed By: #### 21631 ####[facility] [facility] [place] [address], USABasophils/100 WBC (Bld)1.1 %High0.0-1.0The [facility] Medical CenterComment on above:Performed By: #### 93530 ####[facility] [facility] [place] [address], [facility] CENTEREosinophils (Bld) [#/Vol]0.3 10*3/uLNormal0.0-0.5The [facility] Comment on above:Performed By: #### [id number] ####[address] [place] [address], [facility] CENTEREosinophils/100 WBC (Bld)2.7 % Normal0.0-6.0The [facility] Medical CenterComment on above:Performed By: #### 43424 ####[address] [place] [address], [facility]ICAL CENTERErythrocyte distribution width (RBC) [Ratio]12.3 %Khikje87.5-15.0 The [facility] Medical CenterComment on above:Performed By: #### 59699 ####[address] [place] [address], [facility] Hematocrit (Bld) [Volume fraction]50.5 %High39.0-50.0The [facility] Medical CenterComment on above:Performed By: #### 62167 ####[place] [address], [facility] CENTERHemoglobin (Bld) [Mass/Vol]17.3 g/eTNfug31.0-17.0The [facility] Medical CenterComment on above:Performed By: #### 44080 ####[place] [address], [facility]ICAL CENTERIMMATURE GRANS1.4 %High0.0-1.0The [facility] Medical CenterComment on above:Performed By: #### 17190 ####[place] [address], [facility] MEDICAL CENTERLymphocytes (Bld) [#/Vol]1.8 10*3/uLNormal1.2-4.0The [facility] Comment on above:Performed By: #### 03171 ####[facility] [facility] [place] [address], [facility] CENTERLymphocytes/100 WBC (Bld)15.6 %Low 20.0-45.0The [facility] Medical CenterComment on above:Performed By: #### 68020 ####[facility] [facility] [place] [place] [address], [facility] (RBC) [Entitic mass]31.7 jjFkucza93.0-33.0The [facility] Medical CenterComment on above:Performed By: #### 67623 ####[facility] [facility] [place] [address], [facility] CENTERMCHC (RBC) [Mass/Vol]34.3 g/nXAubemx69.0-35.0The [facility] CenterComment on above: Performed By: #### 44643 ####[facility] [place] [address].[place] [address], [facility] CENTERMCV (RBC) [Entitic vol]92.7 bXEaetfr24.0-98.0The [facility] CenterComment on above:Performed By: #### 70082 ####[facility] [facility] [place] [address], [facility] Monocytes (Bld) [#/Vol]0.9 10*3/uLNormal0.1-1.0The [facility] CenterComment on above:Performed By: #### 84160 ####[facility] [facility] [place] [address], [facility] CENTERMONOS8.2 %Normal5.0-12.0The [facility] Medical CenterComment on above:Performed By: #### 82900 ####[facility] [place] [address].[place] [address], [facility] Neutrophils/100 WBC (Bld)71.0 %Cjawup85.0-72.0The [facility] Medical CenterComment on above:Performed By: #### 88235 ####[facility] [place] [address], USANucleated RBC/100 WBC (Bld) [Ratio]0 %Normal0-0The [facility] Medical CenterComment on above: Performed By: #### 92361 ####[facility] [place] [address], USAPLAT QXQ763 10*3/tLJhrfld458-862Ufg [facility] CenterComment on above:Performed By: #### 30224 ####[facility] [facility] [place] [address], USARBC (Bld) [#/Vol] 5.45 10*6/uLNormal4.20-5.70The [facility] CenterComment on above:Performed By: #### 30716 ####[facility] [place] [address], [facility] CENTERWBC (Bld) [#/Vol]11.22 10*3/uLHigh4.00-10.60 The [facility] Medical CenterComment on above:Performed By: #### 30702 ####[facility] [facility] [place] [address], [facility] HIP RIGHT 1 OR 2 VWS WITH PELVISon 17-34-6153XQG RIGHT 1 OR 2 VWS WITH PELVIS [facility] Department of Radiology [address] [place] [id number] Patient Name: LILIANA MICHAELS : 1965 [...] purposes Electronically signed: Aria Steinberg. Transcribed by: [email or web address], User Resident: Electronically Signed by: ARIA STEINBERG @ 03/14/2020 03:44 PMNormalThe [facility] Medical CenterComment on above:Order Comment: RT THAPOC GLUCOSE LABon 54-54-2351Mxbjolg [Mass/Vol]222 mg/wMYeum64-667Xnh [facility] CenterComment on above:Performed By: #### 40822 #### [facility] [address] [place] [address], USAGlucose [Mass/Vol]217 mg/qJEljm94-492Wrx [facility] CenterComment on above:Performed By: #### 26807 ####[facility] [place] [address], USAGlucose [Mass/Vol] 141 mg/eOKsyy18-120Cwn [facility] CenterComment on above: Performed By: #### 42223 #### [address] [place] [address], USAPORTABLE HIP RIGHT 1 OR 2 VWS WITH PELVISon 03-14-2020 PORTABLE HIP RIGHT 1 OR 2 VWS WITH PELVISUnOur [facility] Department of Radiology [address] [place] [id number] Patient Name: LILIANA MICHAELS : 1965 Sex: [...] air Electronically signed: Aria Steinberg. Transcribed by: [id number], User Resident: Electronically Signed by: ARIA STEINBERG @ 03/14/2020 03:46 PMNormalThe [facility] Medical CenterComment on above:Order Comment: Hardware Evaluation, AP/LateralTYPE AND SCREENon 45-10-2586GZR INTERPRETATIONONoKettering Memorial HospitalComment on above:Performed By: #### [id number] ####[facility] [facility].[address] RH INTERPRETATIONPositiveNoKettering Memorial HospitalComment on above:Performed By: #### 63703 ####[facility] [facility].[address] Vital Signs Date TimeVital SignValuePerforming KdvmijetbFqwzasrt26-25-8181 08:41-0400Body .6 cmIshmael Simon MD Work Phone: [facility] HospitalHytdromwbp23-67-7697 08:41-0400Body mass index (BMI) [Ratio]38.28 kg/m2Ishmael Simon MD Work Phone: [facility] HospitalGdnsnpewix12-41-6997 08:41-0400Body temperature 97.5 [degF]Ishmael Simon MD Work Phone: [facility] HospitalPylifgdhnm29-05-2681 08:41-0400Body raoamw125.15 kgIshmael Simon MD Work Phone: [facility] HospitalWkygokmzry08-83-2108 08:41-0400Diastolic blood pblajjmt45 mm[Hg]Ishmael Simon MD Work Phone: noCo[facility] HospitalWshywvsvpj25-41-8339 08:41-0400Heart rate89 /min Ishmael Simon MD Work Phone: [place] [address]Hqfuezvbjn44-63-2002 08:41-0400Respiratory rate18 /minIshmael Simon MD Work Phone: [place] [address]Rlpabcpxcr42-34-6897 08:41-5090FlA8% (BldA) [Mass fraction]94 %Ishmael Simon MD Work Phone: [facility] HospitalClndfdctmw08-36-7680 08:41-0400Systolic blood psfujqau141 mm[Hg]Ishmael Simon MD Work Phone: [facility] HospitalZqzzixihyt62-58-5340 09:04-0400Body jwnapm934.6 cmAregina Son MD Work Phone: 1(086)842-[address] [place], [place] [address]7-23-2025 09:04-0400 Body mass index (BMI) [Ratio]38.62 kg/x0CeruqsdAmador Son MD Work Phone: 1(093)[address]07-23-2025 09:04-0400 Body ltsfig618.06 kgAmador Son MD Work Phone: 1(705)[address]07-23-2025 09:04-0400 Diastolic blood epqmpwqi30 mm[Hg]Amador Son MD Work Phone: 1(024)[address]07-23-2025 09:04-0400 Heart rate65 /minAmador Son MD Work Phone: 1(911)666-[address] [place], [place] [address]7-23-2025 09:04-0400 Systolic blood awsiozzz742 mm[Hg]Amador Son MD Work Phone: 1(029)[address]06-17-2025 09:20-0400 Body xnaxkw829.6 cmIshmael Simon MD Work Phone: [facility] HospitalWtbvacddoy22-03-3609 09:20-0400Body mass index (BMI) [Ratio]39.31 kg/m2Ishmael Simon MD Work Phone: [facility] HospitalVsigouoqpr13-89-7322 09:20-0400Body temperature 97.5 [degF]Ishmael Simon MD Work Phone: [facility] HospitalRxalpjeejd31-93-1856 09:20-0400Body nekjhf948.87 kgIshmael Simon MD Work Phone: [facility] HospitalBkiiijwpsa29-97-2186 09:20-0400Diastolic blood viwbifoh12 mm[Hg]Ishmael Simon MD Work Phone: noCooper [facility] HospitalJxmbvsjsmj69-69-5590 09:20-0400Heart rate88 /min Ishmael Simon MD Work Phone: [facility] HospitalZxnmtlrbxt22-33-9110 09:20-0400Respiratory rate18 /minIshmael Simon MD Work Phone: [facility] HospitalDrenbirjpc47-23-1820 09:20-5818PcR1% (BldA) [Mass fraction]92 %Ishmael Simon MD Work Phone: [facility] HospitalXhugysdthv82-59-2819 09:20-0400Systolic blood depsgfzs665 mm[Hg]Ishmael Simon MD Work Phone: [facility] HospitalZcbvjwczzi73-38-8086 10:20-0400Body thzwaf823.6 cmIshmael Simon MD Work Phone: [facility] HospitalNuiqoztftz58-67-1517 10:20-0400Body mass index (BMI) [Ratio]38.11 kg/m2Ishmael Simon MD Work Phone: [facility] HospitalFshmvdyzpq72-58-8210 10:20-0400Body temperature 97.5 [degF]Ishmael Simon MD Work Phone: [facility] HospitalEfwvpvcmko62-35-1818 10:20-0400Body .7 kgIshmael Simon MD Work Phone: [facility] HospitalZxbroohbmg75-77-2718 10:20-0400Diastolic blood uewfbnla04 mm[Hg]Ishmael Simon MD Work Phone: [facility] HospitalTtjjtxvpdz31-04-1071 10:20-0400Heart rate82 /min Ishmael Simon MD Work Phone: [facility] HospitalUclzoffncb46-85-9459 10:20-0400Respiratory rate20 /minIshmael Simon MD Work Phone: [facility] HospitalYmuxoelnyh81-40-4171 10:20-9643GtY4% (BldA) [Mass fraction]93 %Ishmael Simon MD Work Phone: [facility] HospitalPdjwqkzwgr35-82-4010 10:20-0400Systolic blood silnqzcv365 mm[Hg]Ishmael Simon MD Work Phone: [facility] HospitalQaujzngsfa39-61-7309 09:07-0500Body skwcuk321.6 cmValentino Ty MD Work Phone: 1(710)[address]02-05-2025 09:07-0500 Body mass index (BMI) [Ratio]36.39 kg/y2QvszhteValentino Ty MD Work Phone: 1(074)[address]02-05-2025 09:07-0500 Body ltkxva51.16 kgValentino Ty MD Work Phone: 1(891)[address]02-05-2025 09:07-0500 Diastolic blood wbytvyfp29 mm[Hg]Valentino Ty MD Work Phone: 1(500)[address]02-05-2025 09:07-0500 Heart rate80 /minValentino Ty MD Work Phone: 1(162)[address]02-05-2025 09:07-0500 Systolic blood mm[Hg]Valentino Ty MD Work Phone: 1(081)[address]01-29-2025 09:47-0500 Body .6 cmIshmael Simon MD Work Phone: [facility] HospitalLchzenlnvc90-49-7246 09:47-0500Body mass index (BMI) [Ratio]36.56 kg/m2Ishmael Simon MD Work Phone: [facility] HospitalJrbbxepaqx34-75-3392 09:47-0500Body temperature 97.81 [degF]Ishmael Simon MD Work Phone: [facility] HospitalIguhnfchmo89-05-0941 09:47-0500Body cvunna25.62 kgIshmael Simon MD Work Phone: [facility] HospitalWurivezlwg81-92-1418 09:47-0500Diastolic blood gautvaqz73 mm[Hg]Ishmael Simon MD Work Phone: [facility] HospitalWaqsxtfwev25-33-1496 09:47-0500Heart rate85 /min Ishmael Simon MD Work Phone: [facility] HospitalSuelygpfla23-22-6100 09:47-0500Respiratory rate22 /minIshmael Simon MD Work Phone: [facility] HospitalOztwbowyyk27-02-7851 09:47-3430OvJ6% (BldA) [Mass fraction]92 %Ishmael Simon MD Work Phone: [facility] HospitalQipsnntuby02-90-7467 09:47-0500Systolic blood mm[Hg]Ishmael Simon MD Work Phone: 1(945)963-[address] [place], [place] [address]Afnavzbvcd22-89-8893 08:30-0500Body .6 cmAregina Son MD Work Phone: 1(162)108-[address] [place], [place] 9082201-15-2025 08:30-0500 Body mass index (BMI) [Ratio]37.76 kg/j3JemjdsmAmador Son MD Work Phone: 1(608)821-[address] [place], [place] 9082201-15-2025 08:30-0500 Body .79 kgAmador Son MD Work Phone: 1(234)[address]01-15-2025 08:30-0500 Diastolic blood onsimfis69 mm[Hg]Amador Son MD Work Phone: 1(997)919-[address] [place], [place] 9082201-15-2025 08:30-0500 Heart rate74 /minAmador Son MD Work Phone: 1(172)094-[address] [place], [place] 9082201-15-2025 08:30-0500 Systolic blood lizsnvmn324 mm[Hg]Amador Son MD Work Phone: 1(847)[address]12-17-2024 11:05-0500 Body wvyjtb498.6 cmIshmael Simon MD Work Phone: 1(321)[address]015[address] [place], [place] [address]Tglzuinmsh77-02-8888 11:05-0500Body mass index (BMI) [Ratio]37.76 kg/m2Ishmael Simon MD Work Phone: [facility] HospitalEfhoheuaek05-08-3480 11:05-0500Body temperature 97.81 [degF]Ishmael Simon MD Work Phone: 1(179)473-[address] [place], [place] [address]Ueivbosdrm00-15-0419 11:05-0500Body .79 kgIshmael Simon MD Work Phone: 1(223)[facility] [place], [place] [address]Hjzqqkqoow48-30-1045 11:05-0500Diastolic blood hmetffyg38 mm[Hg]Ishmael Simon MD Work Phone: 1(696)[address] [place], [place] 9605712-17-2024 11:05-0500Heart rate88 /min Ishmael Simon MD Work Phone: 1(432)[address] [place], [place] [address]Hbksgiytwq58-17-0108 11:05-0500Respiratory rate18 /minIshmael Simon MD Work Phone: 1(980)[facility] [place], [place] [address]Jbfhmkysbf91-88-2611 11:05-0087UxL3% (BldA) [Mass fraction]95 %Ishmael Simon MD Work Phone: 1(111)687-[address] [place], [place] [address]Krqcswqskx47-55-0233 11:05-0500Systolic blood buiscxvg888 mm[Hg]Ishmael Simon MD Work Phone: [facility] HospitalPnvalysfeq98-76-7365 13:14-0400Body yodirq484.6 cmIshmael Simon MD Work Phone: 1(997)1-[address] [place], [place] [address]Yxcqxsjypu37-38-3221 13:14-0400Body mass index (BMI) [Ratio]37.25 kg/m2Ishmael Simon MD Work Phone: [facility] HospitalHraihjwgxx33-13-9800 13:14-0400Body temperature 97.5 [degF]Ishmael Simon MD Work Phone: [facility] HospitalHveigukdeq76-05-2729 13:14-0400Body .43 kgIshmael Simon MD Work Phone: 1(499)004-[address] [place], [place] [address]Gsvbmplyrj17-20-5608 13:14-0400Diastolic blood wksfchuu07 mm[Hg]Ishmael Simon MD Work Phone: [facility] HospitalLhqtwdhvok43-72-1740 13:14-0400Heart rate84 /min Ishmael Simon MD Work Phone: [facility] HospitalVcpkzclefk57-60-9096 13:14-0400Respiratory rate20 /minIshmael Simon MD Work Phone: [facility] HospitalPiuyebvqdc18-53-8834 13:14-1167NzT2% (BldA) [Mass fraction]97 %Ishmael Simon MD Work Phone: [facility] HospitalVwksoaaxas64-26-3421 13:14-0400Systolic blood mm[Hg]Ishmael Simon MD Work Phone: [facility] HospitalIytdtewirc79-17-8166 09:29-0400Body pyjcxa874.6 cmIshmael Simon MD Work Phone: [facility] HospitalRjgnobjmwa17-32-0573 09:29-0400Body mass index (BMI) [Ratio]36.39 kg/m2Ishmael Simon MD Work Phone: [facility] HospitalDynmpqjchk65-06-7972 09:29-0400Body temperature 97.5 [degF]Ishmael Simon MD Work Phone: [facility] HospitalFioffidlai53-91-9526 09:29-0400Body .16 kgIshmael Simon MD Work Phone: [facility] HospitalItfekqdvhb61-35-5952 09:29-0400Diastolic blood gkywnzee72 mm[Hg]Ishmael Simon MD Work Phone: [facility] HospitalAmnndhvyid81-72-3526 09:29-0400Heart rate91 /min Ishmael Simon MD Work Phone: [facility] HospitalJxzyvgdwak76-67-4114 09:29-0400Respiratory rate18 /minIshmael Simon MD Work Phone: [facility] HospitalLzdqoxscut23-84-7589 09:29-6499DkN6% (BldA) [Mass fraction]97 %Ishmael Simon MD Work Phone: [facility] HospitalTjgqbnnwyz76-41-2340 09:29-0400Systolic blood qamjsije544 mm[Hg]Ishmael Simon MD Work Phone: [facility] HospitalJkyshyptfw89-45-1874 09:57-0400Body nofbdj405.6 cmMiccasey Woodards DO Work Phone: [facility]07-31-2024 09:57-0400Body mass index (BMI) [Ratio]35.87 kg/i1Qqdewrz Grillis DO Work Phone: [facility]07-31-2024 09:57-0400Body yahosv24.8 kgMiccasey Mccormackillis DO Work Phone: [facility]07-31-2024 09:57-0400Diastolic blood ianavbns55 mm[Hg]Roc Ramsey DO Work Phone: [facility]07-31-2024 09:57-0400Systolic blood otasaahb043 mm[Hg]Roc Ramsey DO Work Phone: [facility]07-03-2024 10:10-0400Body ucoxkg286.6 cmTria Wright APRON CLEANER-FAMILY REUNIFICATION SPECIALIST Work Phone: [facility]07-03-2024 10:10-0400 Body mass index (BMI) [Ratio]35.27 kg/d2YvfquNaima Wright APRON CLEANER-FAMILY REUNIFICATION SPECIALIST Work Phone: [facility]07-03-2024 10:10-0400 Body rwutpb92.21 kgNaima Wright APRON CLEANER-FAMILY REUNIFICATION SPECIALIST Work Phone: [facility]07-03-2024 10:10-0400 Diastolic blood wmfwtibo83 mm[Hg]Naima Wright APRON CLEANER-FAMILY REUNIFICATION SPECIALIST Work Phone: [facility]07-03-2024 10:10-0400 Heart rate68 /minNaima Wright APRON CLEANER-FAMILY REUNIFICATION SPECIALIST Work Phone: 1(267)[address] [place], [place] [address]7-03-2024 10:10-0400 Systolic blood dguwsowy03 mm[Hg]Naima Adriana APRON CLEANER-FAMILY REUNIFICATION SPECIALIST Work Phone: 1(172)[address]04-03-2024 13:31-0400 Body byhwyg946.6 cmAregina Son MD Work Phone: 1(022)[address]04-03-2024 13:31-0400 Body mass index (BMI) [Ratio]34.67 kg/d6AsfvvcpAmador Son MD Work Phone: 1(289)[address]04-03-2024 13:31-0400 Body nwoize65.63 kgAmador Son MD Work Phone: 1(274)[address]04-03-2024 13:31-0400 Diastolic blood mm[Hg]Amador Son MD Work Phone: 1(158)[address] [place], [place] 9[address]2204-03-2024 13:31-0400 Heart rate69 /Delfina Son MD Work Phone: 1(864)[address]04-03-2024 13:31-0400 Systolic blood celbxfbr757 mm[Hg]Amador Son MD Work Phone: 1(438)[address]03-29-2024 17:30-0400 Diastolic blood gwfqvytf03 mm[Hg]Amador Son MD Work Phone: 1(425)[address] [place], [place] 9[address]2203-29-2024 17:30-0400 Heart rate60 /Delfina Son MD Work Phone: 1(221)[address] [place], [place] 9[address]2203-29-2024 17:30-0400 Respiratory rate16 /Delfina Son MD Work Phone: 1(249)[address]03-29-2024 17:30-0400 SaO2% (BldA) [Mass fraction]96 %Amador Son MD Work Phone: 1(282)[address] [place], [place] [address]082203-29-2024 17:30-0400 Systolic blood yerqvztd893 mm[Hg]Amador Son MD Work Phone: 1(015)[address]03-29-2024 12:13-0400 Body oqcgap715.6 Royer Son MD Work Phone: 1(545)[address]03-29-2024 12:13-0400 Body mass index (BMI) [Ratio]34.17 kg/u7BbgpjejAmador Son MD Work Phone: 1(884)[address]03-29-2024 12:13-0400 Body qqcfqllejai01.5 [degF]Amador Son MD Work Phone: 1(443)[address]03-29-2024 12:13-0400 Body uammhe78.3 kgAmador Son MD Work Phone: 1(038)[address]03-15-2024 14:38-0400 Body lawdyf746.6 Royer Son MD Work Phone: 1(432)[address]03-15-2024 14:38-0400 Body mass index (BMI) [Ratio]34.33 kg/v9ItayfpbAmador Son MD Work Phone: 1(558)[address]03-15-2024 14:38-0400 Body .72 kgAmador Son MD Work Phone: 1(200)[address]03-15-2024 14:38-0400 Diastolic blood pkqtizap10 mm[Hg]Amador Son MD Work Phone: 1(988)[address]03-15-2024 14:38-0400 Heart rate41 /minAmador Son MD Work Phone: 1(998)[address]03-15-2024 14:38-0400 Systolic blood tmneahzm399 mm[Hg]Amador Son MD Work Phone: 1(332)[address]03-08-2023 10:57-0500 Body .56 [facility] Butch Carterr Work Phone: 1(601) [phone]-EreyoSt. Francis [facility] Centerk 600 DO Work Phone: 1(110) 168-184203-08-2023 10:57-0500Body mass index (BMI) [Ratio] 32.96 kg/m2Marc A Saut Mediaerer Work Phone: [id number]-KqkncMelrose Area Hospitalwalk 600 DO Work Phone: 1([phone])[phone] 10:57-0500Body surface area Derived from formula1.92 m2Marc A Xytisr Work Phone: mp665-6315HH-JuyexMelrose Area Hospitalwalk 600 DO Work Phone: 1(710) 143-522403-08-2023 10:57-0500Body mbevjb17.09 kgMarc A Xytisr Work Phone: mp279-5053FF-DdwrtNorthfield City Hospital 600 DO Work Phone: 1(326) 975-530603-08-2023 10:57-0500Diastolic blood qelvdnqx70 mm[Hg] Ishmael A Xytisr Work Phone: [phone]-DwzvbSt. Elizabeths Medical [facility] 600 DO Work Phone: [phone]6-8920 10:57-0500Heart rate34 /minMarc A Xytisr Work Phone: [phone]-IemagSt. Elizabeths Medical Center 600 DO Work Phone: 1([phone]) [phone] 10:57-0500Systolic blood cshgfpyj966 mm[Hg] Ishmael A Xytisr Work Phone: [phone]-EngpwSt. [facility]s Medical Center 600 DO Work Phone: 1(204) 423-367209-22-2022 09:37-0400Body dgxwun093.56 cmMarc A Naderer Work Phone: [phone]-QdnwzRiver'S Edge Hospitalwalk 600 DO Work Phone: 1([phone]) [phone] 09:37-0400Body mass index (BMI) [Ratio]30.9 kg/m2Marc A Saut Mediaerer Work Phone: [phone]-Zdmjq [facility] 600 DO Work Phone: 1(678) [phone] 09:37-0400Body surface area Derived from formula1.87 m2Marc A Naderer Work Phone: [phone]-Yohul [facility] 600 DO Work Phone: 1(173) 325-254209-22-2022 09:37-0400Body adjdre58.65 kgMarc A Naderer Work Phone: [phone]-Difuv [facility] 600 DO Work Phone: [phone]) 446-593509-22-2022 09:37-0400Diastolic blood alctnfll68 mm[Hg] Ishmael Butch Naderer Work Phone: [phone]-Keufn [facility] 600 DO Work Phone: 1([phone]) [phone] 09:37-0400Heart rate41 /minMarc A Naderer Work Phone: [phone]-Trkoq [facility] 600 DO Work Phone: 1(692) 288-311709-22-2022 09:37-0400Systolic blood hwsqmyyj745 mm[Hg] Ishmael Butch Naderer Work Phone: [phone]-Ewhhx [facility] 600 DO Work Phone: Encounters Encounter DateEncounter TypeCare ProviderFacilityStart: 03-07-2025 End: 32-15-5285Bssjccghlg hospital visit by physicianEly Device [facility] CenterComment on above:Cardiac pacemaker in situStart: 03-07-2025 End: 42-24-7711vschzxcivvNSJKDYVMagruder Hospitaltart: 02-11-2025 End: 03-17-9682btuulbpnhyEICQLEWNNationwide Children's Hospitaltart: 02-11-2025 End: 51-41-4240bilalxbbqrFBMGHINGCleveland Clinic South Pointe Hospitaltart: 02-05-2025 End: 35-73-7037faptejcqvePPDGFLZTNationwide Children's Hospitaltart: 12-24-2024 End: 07-60-2268Pdtwmz Jarred Simon MD Work Phone: noms CWM FMStart: 12-24-2024 End: 10-46-5420Icvhhyoniel Simon MD Work Phone: noms CWM FMStart: 12-24-2024 End: 41-86-4382Pcevyd outpatient visit 25 minutesIshmael Simon MD Work Phone: noms CWM FMComment on above:Type 2 diabetes mellitus with hyperglycemia, without long-term current use of insulin (HCC) (Primary Dx); Essential hypertension, benign ; Degeneration of intervertebral disc of lumbar region with discogenic back pain and lower extremity pain; Chronic diastolic heart failure (HCC)Start: 12-24-2024 End: 59-01-5146mxbbfrkurqLOLC NADERERNot AvailableStart: 12-17-2024 End: 64-72-3704FwsgdnRdxi Naderer MD Work Phone: noms CWM FMComment on above:Degeneration of lumbar intervertebral discStart: 11-28-2024 End: 99-85-6600Ijtvcp outpatient visit 25 minutesAmador Son MD Work Phone: [facility] CenterComment on above:Cardiac pacemaker in situ (Primary Dx); Chronotropic incompetence; Sick sinus syndrome (Multi); Essential hypertension, benign; Pacemaker; Sinus bradycardia; Former smoker; BMI 38.0-38.9,adultStart: 11-28-2024 End: 84-22-5506rnspzfiscyDUDFUSE N [facility] AmbulatoryStart: 11-28-2024 End: 07-56-3786Pbchysmrns hospital visit by physicianEly [facility] 2 [facility] HospitalComment on above:Cardiac pacemaker in situStart: 11-15-2024 End: 18-27-7108KyapuhNqqe Naderer MD Work Phone: noms CWM FMComment on above:Degeneration of lumbar intervertebral discStart: 11-05-2024 End: 29-83-0203jugxrpqjfvPuocnknJessica Reyes MDFacility:PM Darryl Start: 10-23-2024 End: 35-20-5053Iyjvfg Jarred Simon MD Work Phone: NOMS CWM FMStart: 10-23-2024 End: 46-57-9545Djjdmj flowsDanny Simon MD Work Phone: NOGQ CWM FMStart: 10-23-2024 End: 32-89-9604Tpjjemfxc Result EncounterIshmael Simon MD Work Phone: NOFX External Department UnsolicitedStart: 10-23-2024 End: 16-22-9044Sosyvw outpatient visit 25 minutesIshmael Simon MD Work [...] index (BMI) of39.0 to 39.9 in adult ([facility]); Encounter for long-term (current) use of medications; Screening PSA (prostate specific antigen); Vitamin D insufficiency; DyslipidemiaStart: 10-23-2024 End: 67-45-6092fafglxrckyQVUF NADERERNot AvailableStart: 10-18-2024 End: 10-77-5117WuvyipOkre Naderer MD Work Phone: NOMS CWM FMComment on above:Degeneration of lumbar intervertebral discStart: 09-19-2024 End: 86-06-1226ZrsnngNslt Naderer MD Work Phone: NOMS CWM FMComment on above:Degeneration of lumbar intervertebral discStart: 08-29-2024 End: 03-99-5874XamwmkPqdd Naderer MD Work Phone: [phone] CWM FMComment on above:Carpal tunnel syndrome, bilateral upper limbs; Carpal tunnel syndromeStart: 08-28-2024 End: 01-86-9869prnhjyvuqqSOPPWARMagruder Hospitaltart: 08-28-2024 End: 27-89-7152Hmpwfywwfv hospital visit by physicianEly Device RemoteWeisbrod Memorial County HospitalComment on above:Cardiac pacemaker in situStart: 08-22-2024 End: 22-46-8185OwhqpbWpdt Naderer MD Work Phone: noms CWM FMComment on above:Degeneration of lumbar intervertebral discStart: 08-09-2024 End: 51-32-7921Ujleofmvt Result EncounterGeneric External Data ProviderNOMS External Department UnsolicitedStart: 08-09-2024 End: 63-44-4331Sptvzrfte Result EncounterGeneric External Data ProviderNOMS External Department UnsolicitedStart: 08-06-2024 End: 98-02-4784qlshymzazkPtndiaz Vytautas Giedraitis MDFacility:PM [place] Start: 07-23-2024 End: 93-64-0917Ceuyvu outpatient visit 25 minutesIshmael Simon MD Work [...] Degeneration of lumbar intervertebral discStart: 07-23-2024 End: 19-90-0690cpmzzspfdnMYGD NADERERNot AvailableStart: 06-26-2024 End: 20-06-3097OvtlojNmtf Naderer MD Work Phone: noms CW FMComment on above:Degeneration of lumbar intervertebral discStart: 06-14-2024 End: 44-05-3093Zcwyagyon Result EncounterGeneric External Data ProviderNOMS External Department UnsolicitedStart: 06-14-2024 End: 87-63-1599Oelmafcds Result EncounterGeneric External Data ProviderNOMS External Department UnsolicitedStart: 06-13-2024 End: 22-99-1722Cynvft outpatient visit 25 minutesValentino Ty MD Work Phone: [facility] HospitalComment on above:Sick sinus syndrome (Multi) (Primary Dx); Chronotropic incompetence; Peripheral vascular disease, unspecified (CMS-HCC); Pacemaker; Essential hypertension, benign; Sinus bradycardia; Hyperlipidemia, unspecified hyperlipidemia type; Dyspnea on exertion; BMI 37.0-37.9, adult; Former smoker; Mild coronary artery diseaseStart: 06-13-2024 End: 11-69-8491pjlqrfoabjNUBYRMYParrish Medical Center AmbulatoryStart: 06-06-2024 End: 43-30-5911Phjockoniel Simon MD Work Phone: noms CW FMStart: 06-06-2024 End: 25-75-3287Gtcgkeoniel Simon MD Work Phone: noms CW FMStart: 06-06-2024 End: 75-27-1355Dbluwu outpatient visit 15 minutesIshmael Simon MD Work Phone: noms CW FMComment on above:Chronic obstructive pulmonary disease with acute exacerbation (CMS/HCC) (Primary Dx); Chronic hypoxic respiratory failure (CMS/HCC); Class 2 severe obesity due to excess calories with serious comorbidity and body mass index (BMI) of36.0 to 36.9 in adult (CMS/HCC); Essential hypertension, benign (CMS/HCC)Start: 06-06-2024 End: 64-36-0928bdjqcvxjsdFDFK NADERERNot AvailableStart: 05-29-2024 End: 50-16-8972JpcqrmApki Naderer MD Work Phone: NOMS CWM FMComment on above:Degeneration of lumbar intervertebral discStart: 05-28-2024 End: 33-10-6652KzmrokHfbs Howard MANOMS CWM FMComment on above:Degeneration of lumbar intervertebral discStart: 05-27-2024 End: 42-75-2283Vvjpseasa Result EncounterGeneric External Data ProviderNOMS External Department UnsolicitedStart: 05-27-2024 End: 62-95-8969Szcaaozjc Result EncounterGeneric External Data ProviderNOMS External Department UnsolicitedStart: 05-23-2024 End: 01-99-4631Cdwtbl outpatient visit 25 minutesAmador Son MD Work Phone: [facility] CenterComment on above:Cardiac pacemaker in situ (Primary Dx); Sick sinus syndrome (Multi); MRI safe cardiac pacemaker in situ; Abnormal EKG; Chronotropic incompetence; Sinoatrial node dysfunction (Multi); Sinus bradycardia; Current smoker; BMI 37.0-37.9, adultStart: 05-23-2024 End: 93-45-7379Lvsqfiquqg hospital visit by physicianEly [facility] [address] [place], [place] [address]Comment on above:Sinus bradycardia; Sick sinus syndrome (Multi); Chronotropic incompetence; MRI safe cardiac pacemaker in situStart: 05-23-2024 End: 88-17-6351euywhugdgwUIMIWBE N DIAZDunlap Memorial Hospital AmbulatoryStart: 04-27-2024 End: 32-38-6123SuhnjkSvff Naderer MD Work Phone: NOMS CWM FMComment on above:Degeneration of lumbar intervertebral discStart: 04-24-2024 End: 22-13-4707Kmczdhoniel Simon MD Work Phone: NOMS CWM FMStart: 04-24-2024 End: 92-22-3190Jgxslfoniel Simon MD Work Phone: ANDC CWM FMStart: 04-24-2024 End: 93-23-3217Inhycuotk Result EncounterIshmael Simon MD Work Phone: noms External Department UnsolicitedStart: 04-24-2024 End: 06-96-4226Tvuxwcj encounter procedureIshmael Simon MD Work Phone: [facility] Work Phone: Start: 04-24-2024 End: 13-05-8352Tbcsji follow up visit related to original Kesha Simon MD Work Phone: noms CWM FMComment on above:Medicare annual wellness visit, subsequent (Primary Dx); Type 2 diabetes mellitus with hyperglycemia, without long-term current use of insulin (CMS/HCC); Essential hypertension, benign (CMS/HCC); Class 2 severe obesity due to excess calories with serious comorbidity and body mass index (BMI) of37.0 to 37.9 in adult (CMS/HCC)Start: 04-24-2024 End: 60-93-1503argbtiwtynZCJQ NADERERNot AvailableStart: 04-16-2024 End: 36-01-1490hzmgyelxfiApkonkcJessica Reyes MDFacility:PM [place] Start: 03-30-2024 End: 18-69-3183QlvkpvJxmd Naderer MD Work Phone: noms CWM FMComment on above:Degeneration of lumbar intervertebral discStart: 03-27-2024 End: 41-44-7119Wpeintk encounter procedureIshmael Simon MD Work Phone: [facility] [place] Work Phone: Start: 03-27-2024 End: 64-39-5931egyqmqzhoaYfkg Naderer MD Work Phone: [facility] Work Phone: Start: 03-16-2024 End: 46-18-3281jfjmefyszgErrx E GantzFacility:[facility] Start: 52-68-4771Xeo-patient / Non-visitHighsmith-[facility]-Heart Rhythm ClinicStart: 03-01-2024 End: 45-15-2838TrghzvBaos Naderer MD Work Phone: NOMS CWM FMComment on above:Degeneration of lumbar intervertebral discStart: 02-14-2024 End: 41-94-0270Ajvkoqrlya hospital visit by physicianEly Device [facility] CenterComment on above:Cardiac pacemaker in situ; Sinoatrial node dysfunction (Multi)Start: 02-06-2024 End: 43-09-1923Wdtvwy Jarred Simon MD Work Phone: NOCM CWM FMStart: 02-06-2024 End: 26-41-8584Fvviyt Jarred Simon MD Work Phone: noms CWM FMStart: 02-06-2024 End: 49-16-8675Tfphkcqsf Result Austin Simon MD Work Phone: noms External Department UnsolicitedStart: 02-06-2024 End: 25-20-0830kmiltnqfwuSZZN NADERERNot AvailableStart: 02-06-2024 End: 30-81-1599Ufguym outpatient visit 15 minutesIshmael Simon MD Work Phone: noms CWM FMComment on above:Dysuria (Primary Dx); Acute prostatitis; PyuriaStart: 02-02-2024 End: 32-14-0838RwdnbcQfwm Naderer MD Work Phone: NOMS CWM FMComment on above:Other intervertebral disc degeneration, lumbar region; Degeneration of lumbar or lumbosacral intervertebral discStart: 01-27-2024 End: 70-18-7507WgtuwcQxly Naderer MD Work Phone: NOZU CWM FMComment on above:Degeneration of lumbar intervertebral discStart: 01-25-2024 End: 99-48-9596Argqbkvicv hospital visit by physicianEly Device [facility] CenterComment on above:Cardiac pacemaker in situ; Sinoatrial node dysfunction (Multi)Start: 01-13-2024 End: 78-79-3826Mnkgbqoniel Simon MD Work Phone: noms CWM FMStart: 01-13-2024 End: 42-94-7307Smmqdroniel Simon MD Work Phone: noms CWM FMStart: 01-13-2024 End: 77-96-0553Jjznnz outpatient visit 25 minutesIshmael Simon MD Work Phone: noms CWM FMComment on above:Type 2 diabetes mellitus with hyperglycemia, without long-term current use of insulin (CMS/HCC) (Primary Dx); Essential hypertension, benign (CMS/HCC); Chronic diastolic heart failure (CMS/HCC); Chronic obstructive pulmonary disease, unspecified COPD type (CMS/[facility]); DDD (degenerative disc disease), lumbar; Primary osteoarthritis of right hip; Body mass index (BMI) 35.0-35.9, adultStart: 01-13-2024 End: 31-85-4310irxzwrrfmhWOIY NADERERNot AvailableStart: 12-30-2023 End: 55-55-1332UpudshUuvk Naderer MD Work Phone: noms CWM FMComment on above:Degeneration of lumbar intervertebral discStart: 12-26-2023 End: 59-25-7910Pblmhavwr encounterSheri Chau [facility] Physicians General SurgeryStart: 12-14-2023 End: 93-37-1500Eazoju Fabián Chau [facility] Comment on above:Claudication ([facility]) (Primary Dx)Start: 12-07-2023 End: 19-78-4779Rezjvm outpatient visit 25 minutesRoc Ramsey DO Work Phone: [facility] Physicians General SurgeryComment on above: Right leg pain (Primary Dx); Tobacco abuse; Class 3 severe obesity due to excess calories with serious comorbidity in adult, unspecified BMI (CMS-HCC); Left inguinal hernia; Claudication (CMS-HCC)Start: 11-09-2023 End: 40-50-6960Ffbvdjvex Result EncounterGeneric External Data ProviderNOMS External Department UnsolicitedStart: 11-09-2023 End: 61-57-0017Gggxvhmtt Result EncounterGeneric External Data ProviderNOMS External Department UnsolicitedStart: 11-09-2023 End: 64-89-7481Ffsrlh outpatient visit 40 minutesNaima MURILLO Work Phone: [facility] CenterComment on above:MRI safe cardiac pacemaker in situ (Primary Dx); Sinus bradycardia; Sick sinus syndrome (Multi); Chronotropic incompetence; Chronic diastolic heart failure (Multi); Essential hypertension, benign; Peripheral vascular disease, unspecified ([facility]); Chronic obstructive pulmonary disease, unspecified COPD type ([facility]); Dyspnea on exertion; Obstructive sleep apnea (adult) (pediatric); Current smokerStart: 11-09-2023 End: 33-50-5000Azaetmvpdv hospital visit by Andrei [facility] [address] [place], [place] [address]Comment on above:PacemakerStart: 10-11-2023 End: 21-93-3543Kakqlbhpi Result EncounterIshmael Simon MD Work Phone: noms External Department UnsolicitedStart: 10-11-2023 End: 45-14-1412Docbabdke Result EncounterIshmael Simon MD Work Phone: noms External Department UnsolicitedStart: 09-26-2023 End: 92-17-2624Udmgvpkhdt hospital visit by Andrei Device [facility] CenterComment on above:Cardiac pacemaker in situ; Sinoatrial node dysfunction (Multi)Start: 08-10-2023 End: 63-83-2028Pgxcmiqwtg hospital visit by Andrei Ultrasound [address] [place], [place] [address]Comment on above:Localized swelling on left hand; S/P placement of cardiac pacemakerStart: 08-10-2023 End: 72-54-6482Xiiyohybu Result EncounterGeneric External Data ProviderNOMS External Department UnsolicitedStart: 08-10-2023 End: 45-89-7792Ibkmjnwpk Result EncounterGeneric External Data ProviderNONJ External Department UnsolicitedStart: 08-10-2023 End: 09-49-2453Yhkizz outpatient visit 25 minutesAmador Son MD Work Phone: uh [facility] WomenComment on above:Chronotropic incompetence (Primary Dx); Abnormal stress test; Sinus bradycardia; Sick sinus syndrome (CMS/HCC); Essential hypertension, benign; BMI 34.0-34.9,adult; Current smokerStart: 08-05-2023 End: 23-56-3277Hvgkwqisar hospital visit by physicianAmador Son MD Work Phone: uh [facility] HospitalComment on above:Sinus bradycardia (Primary Dx); Chronotropic incompetence; Sick sinus syndrome (CMS/HCC); Other fatigue; Abnormal stress test; Dyspnea; PacemakerStart: 07-22-2023 End: 81-32-3279Wewqtl outpatient new 60 minutesAmador Son MD Work Phone: uh [facility] WomenComment on above:Chronotropic incompetence (Primary Dx); Sinus bradycardia; Establishing care with new doctor, encounter for; BMI 34.0-34.9,adult; Sick sinus syndrome (CMS/HCC); Simple chronic bronchitis (CMS/HCC); Current smoker; Other fatigue; Preoperative cardiovascular examinationStart: 07-22-2023 End: 44-38-5970Yqyfsen encounter statusAmador Son MD Work Phone: [facility] Work Phone: Start: 10-84-3379zhkrewnwzjOQGZRTUFCWFP LAKSHMIPATHY . Facility:K5Htxhm: 09-14-2022 End: 74-74-1041ugsvnpseizGAXGXBTXUNOX LAKSHMIPATHY .Facility:J3Zbuoz: 08-31-2022 End: 89-16-7495qwzttgtjpeMSAWSSYLPTLN LAKSHMIPATHY .Facility:U4Gaocl: 08-04-2022 End: 83-90-3307yxlpgukpplAEWPHYGVYZAT LAKSHMIPATHY .Facility:H6Ojpxx: 07-23-2022 End: 71-88-5805laatlstncpOKNDSWDSROIP LAKSHMIPATHY .Facility:X2Szvoa: 07-20-2022 End: 95-94-9834dvsprqgivsLHRMLBGQCRTR LAKSHMIPATHY .Facility:U6Tmnzn: 07-15-2022 End: 15-61-1650aunjvxpvxoAKGZDL KHANH .Facility:O4Dnabw: 09-30-9012Qsqdie outpatient visit 15 minutesMarc A Naderer Work Phone: [phone]-PjgoaNorthfield City Hospital 600 DO Work Phone: Start: 86-68-8392ncpwhonosxQn. Valentino Ty Facility:[id number]: 36-91-7412qzeitugflzIH RICKY IBARRA .Facility:J0Xiirw: 06-11-2022 End: 38-52-4476lyoredmtpnTB ISHMAEL Rae NADERERFacility:H7Rbazg: 05-07-2022 End: 03-36-5991elkibigsviJQ ISHMAEL Rae NADERERFacility:T2Shjyu: 05-07-2022 End: 32-72-8095kzlvqcgcclGY ISHMAEL Rae NADERERFacility:C1Clvan: 04-12-2022 End: 80-13-7629oxedkxdvjkPV ISHMAEL Rae NADERERFacility:K1Edzvb: 60-74-6518Hexme UpdateMarc A Naderer Work Phone: [phone]-SxhnaJohnson Memorial [facility] 250 DO Work Phone: Start: 71-89-5489dvcyubfgkyWt. Valentino Ty Facility:[id number]: 53-67-6831isescggkzhNw. Ishmael Vallejo NadererFacility: Start: 30-67-3317Eodvlg consultation new/estab patient 60 minMarc A Naderer Work Phone: [phone]-KvapsNorthfield City Hospital 600 DO Work Phone: Start: 01-14-2022 End: 77-00-1458clozeschrgJNKK SOLIS .Facility:K1Fbclw: 01-01-2022 End: 21-54-2033utrfesaqwnQR ISHMAEL Rae NADERERFacility:A0Ycvby: 12-15-2021 End: 56-85-4587ypngkdqgwkIP RICKYGRICELDA IBARRA .Facility:X4Saufx: 06-95-6209Eypxqwpms for preprocedural laboratory examinationDR RICKY IBARRA .[facility] Start: 12-12-2021 End: 79-48-4752gqdldhxwvlRL ISHMAEL Rae NADERERFacility:B1Aujvl: 12-12-2021 End: 78-07-5305Nxvgoveyq for preprocedural laboratory examinationDR ISHMAEL Rae NADERERFacility:Y9Ddzsn: 12-08-2021 End: 40-45-4870hmpcvferapKS RICKY IBARRA .Facility:T7Fsyef: 12-04-2021 End: 20-96-8567nmdsysjarxHT ISHMAEL Rae NADDIEGORFacility:C3Senfo: 11-19-2021 End: 77-29-8783sfmlohwexfZJKI COLMENARES .Facility:S7Vddxt: 11-03-2021 End: 57-12-8704ojdeazvfbsYV RICKY IBARRA .Facility:K7Duwle: 10-22-2021 End: 47-81-8429octklggejrYR RICKY IBARRA .Facility:H2Dnbxw: 10-13-2021 End: 62-81-5464kxggljpajpEU RICKY S IBARRA .Facility:Y1Vrhzf: 10-01-2021 End: 86-79-1818cjdxorymikASTX COLMENARES .Facility:Y0Qgsjn: 10-01-2021 End: 11-58-7608tgvafcienlQWYM SOLIS .Facility:C0Jzmtt: 10-03-2020 End: 32-45-6352dvwjtnymaqHYYD BOSWELLFacility:[facility]ENTERtart: 03-26-2020 End: 40-52-6775bjgtkbvmhmCZUOJ R HANNAFacility:[facility]ENTERtart: 03-14-2020 End: 23-68-7420otcezyuvazTQBHZ R HANNAFacility:[facility] Procedures DateProcedureProcedure DetailPerforming ClinicianStart: 33-37-0760Roz interrog pm/ldls pm/ids <90 d tech reviewAltaz Son MD Work Phone: Start: 06-42-1819Svn routine ecg w/least 12 lds w/i&r Amador N Son MD Work Phone: Start: 17-93-1234Gsvifcp eval implantable in persn dual ld Medina Son MD Work Phone: Start: 11-98-0677JZZ CBC WITH AUTO DIFFMarpraveena Simon MD Work Phone: Start: 56-78-2379Wxq interrog pm/ldls pm/ids <90 d tech reviewAltaz Son MD Work Phone: Start: 50-55-8897XA LUNG SCREENING LOW DOSEGeneric External Data ProviderStart: 46-27-4310PGJ BASIC METABOLIC PANELGeneric External Data ProviderStart: 92-71-3293COK LIPID PROFILE (FASTING)Generic External Data ProviderStart: 17-60-2742APN ALTGeneric External Data ProviderStart: 06-14-2024 CCF ASTGeneric External Data ProviderStart: 94-00-5690Dnjlqikgze cells LM Ql (Urine sed)Generic External Data ProviderStart: 65-84-9865ZHCG STAIN EVALUATION Generic External Data ProviderStart: 49-54-0056Tacvcfcapm [#/volume] in Blood Generic External Data ProviderStart: 95-13-2987WVYCF RESPIRATORY CULTUREGeneric External Data ProviderStart: 60-59-5391AMPOVR 1Generic External Data Provider Start: 46-59-0889NGREEQ 2Generic External Data ProviderStart: 32-04-0928VICBBS 3 Generic External Data ProviderStart: 58-17-1299UEFAMF 4Generic External Data ProviderStart: 28-24-6677Gni routine ecg w/least 12 lds w/i&Ana María Son MD Work Phone: Start: 63-71-5392Djrbreu eval implantable in persn dual ld Lester Wright APRON CLEANER-FAMILY REUNIFICATION SPECIALIST Work Phone: Start: 08-73-2524ZUQ HEMOGLOBIN H9JTkavIshmael Simon MD Work Phone: Start: 60-94-8875ZE lumbar spine wo conIshmael Simon MD Work Phone: Start: 00-32-4332LT pre/post mri xrayIshmael Simon MD Work Phone: Start: 16-54-7121Fih interrog pm/ldls pm/ids <90 d tech reviewAmador Son MD Work Phone: Start: 23-95-9801TBH UA (CLEAN/CATCH) MICROSCOPIC IF INDICATEIshmael Simon MD Work Phone: Start: 11-29-8507Okr routine ecg w/least 12 lds w/i&r Naimadaniel Wright APRON CLEANERE & E Capital ManagementFALMOUTH HOSPITAL Work Phone: Start: 04-99-3239KO CHEST 2 VIEWS PA/LATGeneric External Data ProviderStart: 77-56-0966Yohshgr eval implantable in persn dual ld paceLawrence Dodge Quoc [facility] CENTERE & E Capital ManagementFALMOUTH HOSPITAL Work Phone: Start: 06-43-5280Apaxk shoulder complete minimum 2 viewsIshmael Simon MD Work Phone: Start: 77-31-5464UOSSJVT DEVICE CHECK - REMOTEAltaz Son MD Work Phone: Start: 08-10-2023 End: 01-35-1757Civ-scan xtr veins unilateral/limited studyTradaniel Wright APRON CLEANER-[facility] Work Phone: Start: 62-04-8760Uyydxwfjip exam chest single viewAna M Echo Quoc APRON CLEANER-[facility] Work Phone: Start: 38-65-2845Nuo routine ecg w/least 12 lds trcg only w/o i&Lawrence Echo APRON CLEANER-[facility] Work Phone: Start: 18-79-6826Hxtmyjgvqziqjiqba studyAmador Son MD Work Phone: Start: 90-35-0977Etyq tthrc r-t 2d w/wom-mode compl spec&colr Nadege Angel [facility]ENTERE & E Capital ManagementFALMOUTH [facility]OS[facility]ITAL Work Phone: Start: 68-04-0389Sxi routine ecg w/least 12 lds trcg only w/o i&Lawrence Echo Stanley APRON CLEANER-FAMILY REUNIFICATION SPECIALIST Work Phone: Start: 29-71-6974Hesje metabolic panel calcium total Ana M Echo Barrettcrys APRON CLEANER-FAMILY REUNIFICATION SPECIALIST Work Phone: Start: 94-04-3454Vao routine ecg w/least 12 lds w/i&r Amador Son MD Work Phone: Start: 38-03-8011COP screeningDR ISHMAEL NADERERComment on above:Performed By: #### VITAD, PSASC #### [facility] [address] [place] [address] Dr. Britt MendozaStart: 59-05-6732QXAAMJ HIP ARTHROPLASTYSIMONE BOSWELLStart: 97-94-1092BFRRG HIP ARTHROPLASTYMAGED R HANNAStart: 62-58-2177Lzntodyi screen SIMONE Leal on above:Performed By: #### [id number] ####[facility] [place] [address], USAStart: 08-24-[address] Work Phone: ColonoscopyMarc A Naderer Work Phone: Excision of cystMarc A Naderer Work Phone: Hernia repairMarc A Naderer Work Phone: Operation on urinary systemMarc A Naderer Work Phone: Surgical repair of upper extremityMarc A Naderer Work Phone: Total replacement of hipMarc A Naderer Work Phone: Plan of Treatment DateCare ActivityDetailAuthorStart: 41-33-2452Jljnxugoz for malignant neoplasm of colonNOMS HealthcareStart: 30-04-1046Cltqnjtc screeningDiabetes: Retinopathy ScreeningNOMS HealthcareStart: 31-46-4850Atglp screening for proteinDiabetes: Urine Protein ScreeningNONJ HealthcareStart: 06-04-2025 End: 77-62-0906Lhdcour encounter procedureChildren's Hospital Colorado North Campustart: 05-15-2025 End: 14-42-4844Thzqqvw encounter vslojwsaf45/07/2026 8:40 AM EST Office Visit [address] [place] [id number] Valentino Ty MD [address] [facility] [address] [place] [address] [facility]Start: 04-26-2025 End: 65-87-3003Jgiaeyw encounter pjcmizocc81/19/2025 9:30 AM EST Office Visit [facility] [address] [place] [address] Ishmael Simon MD [address] [place] [address] [facility] FMStart: 12-17-2025Medicare Annual Wellness (AWV)Medicare Annual Wellness (AWV)NOM HealthcareStart: 63-64-7160Cjjlnnzsom A1c measurement Diabetes: Hemoglobin Z2HWNBZ HealthcareStart: 45-75-7080YDOWR-19 Vaccine ( season)COVID-19 Vaccine ( season)[facility]: 75-91-8238Ylpvxrkna vaccinationNONJ HealthcareStart: 12-24-2024 End: 44-15-9123Zyqwcas encounter procedureNONJ CWM FMComment on above:Arrived Start: 32-34-1075Cljtdgcqn vaccinationInfluenza Vaccine (#1)[facility]: 54-55-8622Eprrq BMI ScreeningAdult BMI ScreeningGood Samaritan Hospital SystemStart: 06-12-5765Xxezbhh ScreeningTobacco ScreeningGood Samaritan Hospital SystemStart: 11-28-2024 End: 66-21-3001Ezygetc encounter procedureFry Eye Surgery Centertart: 11-21-2024 End: 96-86-1679Nlnrxqy encounter keofdtcmg23/16/2025 8:00 AM EDT Appointment [facility] [address] [place] [phone] [facility] Emergency[facility]art: 10-23-2024 End: 813768-krmttedytloter D3 [Mass/volume] in Serum or PlasmaVitamin D 25 hydroxy Lab Routine Vitamin D insufficiency Expected: 10/23/2024 (Approximate), Expires: 10/23/2025[facility] Healthcare Work Phone: Comment on above:Expected: 10/23/2024 (Approximate), Expires: 10/23/2025Start: 10-23-2024 End: 19-47-4379Uyeyl metabolic 1998 panel - Serum or PlasmaBasic metabolic panel Lab Routine Essential hypertension, benign Expected: 10/23/2024 (Approximate), Expires: 10/23/2025[facility] HealthcareComment on above:Expected: 10/23/2024 (Approximate), Expires: 10/23/2025Start: 10-23-2024 End: 76-05-2570JGA W Auto Differential panel - BloodCBC and differential Lab Routine Encounter for long-term (current) use of medications Expected: 10/07 (Approximate), Expires: 10/23/2025[facility] HealthcareComment on above: Expected: 10/23/2024 (Approximate), Expires: 10/23/2025Start: 10-23-2024 Hemoglobin A1c measurementDiabetes: Hemoglobin Q7FSQYWMercy McCune-Brooks HospitalStart: 10-23-2024 End: 92-30-0893Zeaswkyhbl A1c/Hemoglobin.total in BloodHemoglobin A1c Lab Routine Type 2 diabetes mellitus with hyperglycemia, without long-term current use of insulin (HCC) Expected: 10/23/2024 (Approximate), Expires: 10/23/2025[facility] HealthcareComment on above:Expected: 10/23/2024 (Approximate), Expires: 10/23/2025Start: 10-23-2024 End: 43-45-0382Yqrcndq function 2000 panel - Serum or PlasmaHepatic function panel Lab Routine Encounter for long-term (current) use of medications Expected: 10/23/2024 (Approximate), Expires: 10/23/2025NONJ HealthcareComment on above: Expected: 10/23/2024 (Approximate), Expires: 10/23/2025Start: 10-23-2024 End: 74-56-0471Lgwcy 1996 panel - Serum or PlasmaLipid panel Lab Routine Dyslipidemia Expected: 10/23/2024 (Approximate), Expires: 10/23/2025NONJ HealthcareComment on above:Expected: 10/23/2024 (Approximate), Expires: 10/23/2025Start: 10-23-2024 End: 68-65-2675Iwthtpms specific Ag [Mass/volume] in Serum or PlasmaPSA Lab Routine Screening PSA (prostate specific antigen) Expected: 10/23/2024 (Approximate), Expires: 10/23/2025[facility] HealthcareComment on above:Expected: 10/23/2024 (Approximate), Expires: 10/23/2025Start: 10-23-2024 End: 76-17-5125Vwosgafmtkg [Units/volume] in Serum or PlasmaTSH Lab Routine Class 2 severe obesity due to excess calories with serious comorbidity and body mass index (BMI) of 39.0 to 39.9 in adult ([facility]) Expected: 10/23/2024 (Approximate), Expires: 10/23/2025[facility] HealthcareComment on above:Expected: 10/23/2024 (Approximate), Expires: 10/23/2025Start: 10-23-2024 End: 52-25-2114Cfhhcie encounter procedureNOMS CWM FMComment on above:Arrived Start: 21-01-2381Stteklrged measurementCreatinine LevelUnProMedica Defiance Regional Hospital: 77-63-1277ItfhfxtuokwdfjybNyngpcvgopataoBekxisretd [facility] ClevelandStart: 55-40-6556Pwdiqujkn measurementPotassium LevelUnProMedica Defiance Regional Hospital: 07-23-2024 End: 47-74-0624Btejmnjlxiyz/Creatinine panel in random UrineMicroalbumin / creatinine, urine ratio Lab Routine Type 2 diabetes mellitus with hyperglycemia, without long-term current use of insulin ([facility]) Expected: 07/23/2024 (Approximate), Expires: 07/23/2025[facility] Work Phone: Comment on above:Expected: 07/23/2024 (Approximate), Expires: 07/23/2025Start: 07-23-2024 End: 26-81-0436Qjeynfb encounter cifozlych42/17/2025 10:15 AM EDT Office Visit [facility] [address] [place] [phone] Ishmael Simon MD [address] [place] [address] [facility]IAH FMStart: 06-13-2024 End: 18-42-5976Kryrdpe aminotransferase [Enzymatic activity/volume] in Serum or Plasma by With P-5'-PAlanine Aminotransferase Lab Routine Hyperlipidemia, unspecified hyperlipidemia type Expected: 06/13/2024 (Approximate), Expires: 06/13/2025[facility] Service Area Work Phone: Comment on above:Expected: 06/13/2024 (Approximate), Expires: 06/13/2025Start: 06-13-2024 End: 40-50-9343Sfzmtvybg aminotransferase [Enzymatic activity/volume] in Serum or Plasma by With P-5'-PAspartate Aminotransferase Lab Routine Hyperlipidemia, unspecified hyperlipidemia type Expected: 06/13/2024 (Approximate), Expires: 06/13/2025[facility] Work Phone: Comment on above:Expected: 06/13/2024 (Approximate), Expires: 06/13/2025Start: 06-13-2024 End: 59-36-9466Njmxh metabolic 2000 panel - Serum or PlasmaBasic Metabolic Panel Lab Routine Essential hypertension, benign Expected: 06/13/2024 (Approximate), Expires: 06/13/2025[facility] Work Phone: Comment on above:Expected: 06/13/2024 (Approximate), Expires: 06/13/2025Start: 06-13-2024 End: 27-49-1032Srfdc 1996 panel - Serum or PlasmaLipid Panel Lab Routine Hyperlipidemia, unspecified hyperlipidemia type Expected: 06/13/2024 (Approx imate), Expires: 06/13/2025[facility] Work Phone: Comment on above:Expected: 06/13/2024 (Approximate), Expires: 06/13/2025Start: 06-13-2024 End: 49-13-1914Wnaqnzi encounter fpwjtkloh29/05/2025 9:10 AM EST Office Visit [address] [place] [address] Valentino Ty MD [address] [facility], [address] [place] [address] [facility]Start: 06-06-2024 End: 92-32-6230Bouifgf encounter kpujhqjxt66/29/2025 9:45 AM EST Office Visit [facility] [address] [place] [phone] Ishmael Simon MD [address] [place] [address] ArrivedNOELKVIEW [facility] FMComment on above:ArrivedStart: 06-04-2024 End: 55-56-0042Xmmyedp encounter ucgarwgou06/27/2025 9:30 AM EST [facility] [address] [place] [address] Ishmael Simon MD [address] [place] [address] [facility] CW FMStart: 58-03-8307Udbor screening for proteinDiabetes: Urine Protein ScreeningNONJ HealthcareStart: 05-23-2024 End: 25-68-5781Tsylvfa encounter procedureChildren's Hospital Colorado North Campustart: 23-04-5272Tkvanshb screeningDiabetes: Retinopathy ScreeningNOMS HealthcareStart: 05-11-2024 End: 63-63-0302Siffdat Device Check - In ClinicCardiac Device Check - In Clinic Implantable Cardiac Device Routine Sinus bradycardia Sick sinus syndrome (Multi) Chronotropic incompetence MRI safe cardiac pacemaker in situ Expected: 05/11/2024 (Approximate), Expires: 11/08/2024[facility] Service Area Work Phone: Comment on above:Expected: 05/11/2024 (Approximate), Expires: 11/08/2024Start: 04-24-2024 End: 67-35-7038Kwwgjxiyej A1c/Hemoglobin.total in BloodHemoglobin A1c Lab Routine Type 2 diabetes mellitus with hyperglycemia, without long-term current use of insulin ([facility]) Expected: 04/24/2024 (Approximate), Expires: 04/24/2025 [facility] Healthcare Work Phone: Comment on above:Expected: 04/24/2024 (Approximate), Expires: 04/24/2025Start: 04-24-2024 End: 42-85-1019Euixomi encounter procedureNOELKVIEW GENERAL HOSPITAL [facility] FMComment on above:Arrived Start: 13-57-4034Ypddkhomje A1c measurementDiabetes: Hemoglobin S9AQAXLMercy McCune-Brooks HospitalStart: 26-43-2249KDU High Risk: (Elderly (60+) or Population) (1 - Risk 60-74 years 1-dose series)RSV High Risk: (Elderly (60+) or Population) (1 - Risk 60-74 years 1-dose series)[facility] HospitalStart: 02-06-2024 End: 93-46-8128Cedrhpnp identified in Urine by CultureUrine culture (clean catch) Microbiology Routine Dysuria Expected: 02/06/2024 (Approximate), Expires: 02/05/2025[facility] Healthcare Work Phone: Comment on above:Expected: 02/06/2024 (Approximate), Expires: 02/05/2025Start: 02-06-2024 End: 73-85-3622Fynlgbajs trachomatis and Neisseria gonorrhoeae DNA [Identifier] in Unspecified specimen by KATT with probe detectionChlamydia DNA probe, direct Microbiology Routine Acute prostatitis Pyuria Expected: 02/06/2024 (Appr oximate), Expires: 02/05/2025NOMS HealthcareComment on above:Expected: 02/06/2024 (Approximate), Expires: 02/05/2025Start: 02-06-2024 End: 90-51-2284Dmpwjkipp gonorrhoeae DNA assayGonococcus DNA, PCR Microbiology Routine Dysuria Acute prostatitis Pyuria Expected: 02/06/2024 (Approximate), Expires: 02/05/2025NOMS HealthcareComment on above:Expected: 02/06/2024 (Approximate), Expires: 02/05/2025Start: 02-06-2024 End: 96-34-5330Snjqqascnw complete panel - UrineUrinalysis with reflex microscopic (clean catch) Lab Routine Dysuria Expected: 02/06/2024 (Approxima te), Expires: 02/05/2025NOMS HealthcareComment on above:Expected: 02/06/2024 (Approximate), Expires: 02/05/2025Start: 01-13-2024 End: 65-49-9375Xvejfdb encounter procedureNOMS CWM FMComment on above:Arrived Start: 59-02-8295NDSRB-19 Vaccine ( season)COVID-19 Vaccine ( season)[facility]: 32-86-8162XSBNS-19 Vaccine ( season)COVID-19 Vaccine ( season)[facility]: 32-02-6381Legrpfvny vaccinationNorwalk Memorial Hospital: 12-23-2023 End: 66-49-7795Asnmiwn encounter ohdmyapxq12/16/2024 10:00 AM EDT Appointment [facility] [address] [place] [address] Roc Ramsey DO [address] [place] [address] [facility] 12-14-2023 End: 74-67-5619DR.doppler Extremity arteries - bilateral for physiologic artery studyVas art doppler lwr bilat mult lev/PVR Vascular Ultrasound Routine Claudication (CMS-HCC) Expected:12/14/2023, Expires: 12/13/2024[facility] Work Phone: Comment on above:Expected: 12/14/2023, Expires: 12/13/2024Start: 12-07-2023 End: 87-23-0208WC.doppler Extremity arteries - bilateral for physiologic artery studyVas art doppler lwr bilat mult lev/PVR Vascular Ultrasound Routine Right leg pain Expected: 12/07/2023, Expires: 12/06/2024[facility] Work Phone: Comment on above:Expected: 12/07/2023, Expires: 12/06/2024Start: 11-21-2023 End: 84-63-4577Zxkxkow encounter cngfyuwjd98/15/2024 8:50 AM EDT Office Visit [place] [address] [place] [address] Valentino Ty MD [address] [facility] [address], [address] [place] [address] [facility] HospitalStart: 11-09-2023 End: 47-56-3138Evonzzj Device Check - In [facility] Service Area Work Phone: Comment on above:Expected: 11/09/2023 (Approximate), Expires: 08/04/2024Start: 11-09-2023 End: 99-66-0284XM Chest 2 [facility] Work Phone: Comment on above:Expected: 11/09/2023, Expires: 08/04/2024Once for 1 Occurrences starting 11/09/2023 until 11/09/2023Start: 11-09-2023 End: 81-46-0705Pcchjta encounter procedureChildren's Hospital Colorado North Campustart: 11-03-2023 End: 68-20-5689Hhpsfen encounter hvoxskfpn87/27/2024 8:50 AM EDT Office Visit [place] [address] [place] [address] Valentino Ty MD [address] [facility], [address] [place] [address] [facility] HospitalStart: 08-12-2023 End: 20-21-5784Etaoggpx Odeylny4708/12/2023 8:30 AM EDT Clinical Support [facility] [address] [place] [address] [facility] Centertart: 62-04-0113Yvpsajbogq hospital visit by evjhxqkii29/03/2024 2:09 PM EDT Hospital Encounter [facility] [address] [place] [address] Localized swelling on left hand; S/P placement of cardiac pacemakerWeisbrod Memorial County HospitalComment on above:Localized swelling on left hand; S/P placement of cardiac pacemakerStart: 07-22-2023 End: 11-26-5681YH Heart TransthoracicTransthoracic Echo Complete Echocardiography Routine Sinus bradycardia Chronotropic incompetence Sick sinus syndrome (CMS/HCC) Other fatigue Preoperative cardiovascular examination Expected: 07/22/2023 (Approximate), Expires: 07/21/2025UnMer[facility] Work Phone: Comment on above:Expected: 07/22/2023 (Approximate), Expires: 07/21/2025Start: 48-53-8529KTK, Provider: Valentino Ty, Status: Pen, Time: 8:30 AMFUV, Provider: Valentino Ty, Status: Pen, Time: 8:30 AM [facility] [address] Work Phone: Start: 44-93-1635OBNCS-19 Vaccine ( season) COVID-19 Vaccine ( season)[facility] HospitalStart: 04-96-1637Cbtxwnxnd vaccinationInfluenza Vaccine (#1)[facility]: 11-58-9137SIU, Provider: Valentino Ty, Status: Pen, Time: 10:40 AMFUV, Provider: Valentino Ty, Status: Pen, Time: 10:[address] AMMP-[facility] [address] DO Work Phone: Start: 04-42-9723KNOLJA JUICE, Provider: CARLITO HHVI NUCLEAR 01,[id number], Status: Pen, Time: 2:00 PMSTRESS JUICE, Provider: CARLITO HHVI NUCLEAR 01,[id number], Status: Pen, Time: 2:00 PMMP-[facility] [address] DO Work Phone: Start: 52-22-6063Kpbzugndiqottj of varicella zoster vaccineZoster (Shingles) Vaccine (1 of 2)Gotcha [facility]injasth[facility] Adzerk SystemStart: 43-77-7290Fxcosfud specific antigen measurementPSA Prostate Cancer Screening [facility]: 46-87-9696DHN High Risk: (Elderly (60+) or Population) (1 - Risk 50-74 years 1-dose series)RSV High Risk: (Elderly (60+) or Population) (1 - Risk 50-74 years 1-dose series) [facility]: 09-04-7614Ctqjht Vaccines (1 of 2)Zoster Vaccines (1 of 2)[facility]: 28-98-6888IJdU/Tdap/Td Vaccines (1 - Tdap)DTaP/Tdap/Td Vaccines (1 - Tdap)[facility]: 61-13-3824DCwM,Tdap and Td Vaccines (1 - Tdap)DTaP,Tdap and Td Vaccines (1 - Tdap)[facility] Adzerk SystemStart: 63-63-9545Riyfkzxil B Vaccines (1 of 3 - 19+ 3-dose series)Hepatitis B Vaccines (1 of 3 - 19+ 3-dose series) [facility]: 48-18-6040Zuvwiaedtgaf vaccination Pneumococcal Vaccine (1 of 2 - PCV)[facility]: 46-84-9174Hfwjv screening for proteinDiabetes: Urine Protein ScreeningNorwalk Memorial Hospital: 23-09-9764Sjvir BMI Follow Up PlanAdult BMI Follow Up PlanSelect Specialty Hospitaltart: 18-40-7851Ongkshds mellitus screening Diabetes ScreeningNorwalk Memorial Hospital: 82-61-4191Tqvdtpxo foot examinationDiabetic Foot ExamProKettering Health Hamiltontart: 02-21-1982 Hepatitis C screeningHepatitis C ScreeningUnMercy Health Clermont Hospital Start: 89-09-2656Ptmmqfzydw ScreeningDepression ScreeningCleveland Clinic [facility] Start: 05-34-5769Rawoabuv foot examinationDiabetes: Foot ExamUnProMedica Defiance [facility] Hospital: 86-61-0294Jmacechb screeningDiabetes: Retinopathy ScreeningUnProMedica Defiance [facility] Hospital: 76-35-8165Tivwtntyjnlm Vaccine: Pediatrics (0 to 5 Years) and At-Risk Patients (6 to 64 Years) (1 - PCV) Pneumococcal Vaccine: Pediatrics (0 to 5 Years) and At-Risk Patients (6 to 64 Years) (1 - PCV)[facility]: 65-85-6617Xdowlfrhhrau Vaccine: Pediatrics (0 to 5 Years) and At-Risk Patients (6 to 64 Years) (1 of 2 - PCV)Pneumococcal Vaccine: Pediatrics (0 to 5 Years) and At-Risk Patients (6 to 64 Years) (1 of 2 - PCV)[facility]: 69-06-1148GXB Vaccines (1 of 1 - Standard series)MMR Vaccines (1 of 1 - Standard series) [facility]: 38-65-7746HURUQ-19 Vaccine (#1)COVID-19 Vaccine (#1)[facility]: 28-87-2318Sgalgr wellness visitWelcome to Medicare VisitUnProMedica Defiance Regional Hospital: 1965 Creatinine measurementCreatinine LevelUnProMedica [facility]iance Regional Hospital: 62-69-8862LjvmziizymvehxzhFeiotnbwahavvpWbvlpfyxgu [facility] ClevelandStart: 17-71-1451Zjgpwowz screeningDiabetic Ophthalmology ExamProUc Health Start: 21-34-5229Wbxpmhwvxf A1c measurementDiabetes: Hemoglobin H2PEiiadjdpwgProMedica Defiance Regional Hospital: 65-65-3904Anyjhbppy B Vaccines (1 of 3 - 3-dose series)Hepatitis B Vaccines (1 of 3 - 3-dose series)[facility]: 10-00-4623IZV screeningHIV ScreeningNorwalk Memorial Hospital: 16-58-9500Zcizg panelLipid PanelNorwalk Memorial Hospital: 1964Medicare Annual Wellness (AWV)Medicare Annual Wellness (AWV)[facility] HospitalStart: 1964Medicare Annual Wellness VisitMedicare Annual Wellness Visit (AWV)[facility]: 1965 Potassium measurementPotassium LevelUnProMedica Defiance Regional Hospital: 00-19-5557Djgjmjqqd for malignant neoplasm of colonNorwalk Memorial Hospital: 71-13-6136Njqiumr CounselingTobacco CounselingGood Samaritan Hospital SystemStart: 02-51-7108Kqbmm screening for proteinDiabetes: Urine Protein ScreeningCherrington Hospital End: 38-94-7783Amnld metabolic 2000 panel - Serum or PlasmaBasic Metabolic Panel Lab Routine Sinus bradycardia Chronotropic incompetence Sick sinus syndrome (C MS/HCC) Other fatigue 1 Occurrences starting 07/22/2023 until 07/21/2024 [facility] Work Phone: Comment on above:1 Occurrences starting 07/22/2023 until 07/21/2024 End: 23-76-6610Rgbauru Device Check - In ClinicCardiac Device Check - In Clinic Implantable Cardiac Device Routine Cardiac pacemaker in situ 1 Occurrences starting 05/23/2024 until 11/20/2025[facility] Service Area Work Phone: Comment on above:1 Occurrences starting 05/23/2024 until 11/20/2025 End: 55-52-7018Uislmvp Device Check - In ClinicCardiac Device Check - In Clinic Implantable Cardiac Device Routine Cardiac pacemaker in situ 1 Occurrences starting 11/28/2024 until 05/31/2026[facility] Service Area Work Phone: Comment on above:1 Occurrences starting 11/28/2024 until 05/31/2026 End: 13-07-4242Ppdsegq Device Check - RemoteGUADALUPE COUNTY HOSPITAL Service Area Work Phone: Comment on above:Once for 1 Occurrences starting 01/25/2024 until 01/25/2024 End: 08-22-2406Fsrrbzx Device Check - RemoteCardiac Device Check - Remote Implantable Cardiac Device Routine Cardiac pacemaker in situ 52 Occurrences starting 05/23/2024 until 11/20/2024[facility] Work Phone: Comment on above:52 Occurrences starting 05/23/2024 until 11/20/2024 End: 83-87-2029Btkaros Device Check - RemoteCardiac Device Check - Remote Implantable Cardiac Device Routine Cardiac pacemaker in situ 52 Occurrences starting 11/28/2024 until 05/31/2025[facility] Work Phone: Comment on above:52 Occurrences starting 11/28/2024 until 05/31/2025 End: 64-89-5121CHU panel - Blood by Automated countCBC Lab Routine Sinus bradycardia Chronotropic incompetence Sick sinus syndrome (CMS/HCC) Other fati tamika 1 Occurrences starting 07/22/2023 until 07/21/2024[facility] Work Phone: Comment on above:1 Occurrences starting 07/22/2023 until 07/21/2024ECG 12 lead (Clinic Performed)ECG 12 lead (Clinic Performed) ECG Routine Sinus bradycardia 11/09/2023 10:38 AM [facility] Work Phone: ecg 12 lead STATECG 12 lead STAT ECG STAT 08/05/2023 12:30 PM [facility] Service Area Work Phone: ecg 12 lead STATECG 12 lead STAT ECG STAT 08/05/2023 5:12 PM [facility] Work Phone: LOWTK RESPIRATORY CULTURELOWER RESPIRATORY CULTURE Lab Routine 05/27/2024 6:00 PM ESTNOMS HealthcarePPM IMPLANT DCPPM IMPLANT DC Sinus bradycardia Chronotropic incompetence Sick sinus syndrome (CMS/HCC) Other fatig ueUniSouthwest General Health Center Work Phone: End: 21-07-8593Uzyjrduplgp time (PT)Protime-INR Lab Routine Sinus bradycardia Chronotropic incompetence Sick sinus syndrome (CMS/HCC) Other fatigue 1 Occurrences starting 07/22/2023 until 07/21/2024[facility] Service Area Work Phone: Comment on above:1 Occurrences starting 07/22/2023 until 07/21/2024 Payers DatePayer CategoryPayerPolicy [id number]-pay2024Medicare (Managed Care)[id number] Health [id number] [id number] Health [id number] 2..840.1.196150.3.57[id number] 2..840.1.283349.3.57[id number] 2..840.1.605829.3.57[id number] 2.16.840.1.976054.3.57[id number] 2..840.1.629622.3.579.2.9[id number] 2.16.840.1.674913.3.579.2.57411-27-2340Flbqopv1212886 2.16.840.1.337573.3.579.2.84423-30-6719Uxjtuza5030711 2.16.840.1.331402.3.579.2.33184-40-6948Gqektdm7257750 2.16.840.1.000493.3.57[id number] 2.16.840.1.936852.3.579.2.98040-70-3394Mjcvzsp2447777 2.16.840.1.275908.3.579.2.06153-85-8233Doyaova5804861 2.840.1.664099.3.579.2.28424-92-8538Ksujuur3417851 2..840.1.984645.3.579.2.97546-35-5575Defcfya7785956 2.840.1.568307.3.579.2.28869-48-1908Zigxjwx5043621 2.840.1.581343.3.579.2.79074-24-0882Cfigvki1603515 2.840.1.156827.3.579.2.12233-82-9417Gtwnkcd4679424 2..840.1.791021.3.579.2.52200-06-3590Eexhmyg3224410 2.840.1.420268.3.579.2.46890-91-0570Uczmkwz1896365 2.840.1.927565.3.579.2.18435-97-3195Pdufoqy5512045 2.840.1.776261.3.579.2.24763-19-1473Acfodrn1270051 2.840.1.809618.3.579.2.49598-19-7720Kyvglxb2174410 2.840.1.368998.3.579.2.80015-88-0819Yyrggvf2698913 2.840.1.422745.3.579.2.94099-53-3489Aorzanz4234876 2.840.1.509901.3.579.2.04219-91-2670Necsgzn9533782 2.840.1.468027.3.579.2.83130-12-1245Pnqrqms4394263 2..840.1.066167.3.579.2.10237-15-5009Iibntlq4472939 2.840.1.175614.3.579.2.85927-32-8572Xfeyeln8431851 2.840.1.153743.3.579.2.18929-48-4109Djznoor7507098 2.840.1.525699.3.579.2.12796-89-4696Dhhixwi3740369 2.840.1.407324.3.579.2.32732-30-2902Muoxlsv115306994 2.840.1.051522.3.579.2.69898-93-5131Ptlkxjn448847591 2.840.1.656760.3.579.2.28702-06-8344Kfgnnge910574255 2.840.1.417136.3.57[id number] 2.840.1.779678.3.579.2.785073-73-4957Dcyiorm72078695 2.840.1.162701.3.579.2.519864-64-8789Sbkppjs0202114 2.840.1.433660.3.579.2.639245-87-6520Vvfsqun0398263 2.840.1.401047.3.579.2.953942-62-5369Qiqbbik2721145 2.840.1.540605.3.579.2.528606-82-0861Gqyvxff6807312 2..840.1.143484.3.579.2.115267-54-2034Eoisyte9642179 2..840.1.649852.3.579.2.310426-98-0731Umwltuv359721197 2..840.1.950379.3.579.2.753630-28-3845Wvkhkjo573448991 2..840.1.382824.3.579.2.57[id number] 2..840.1.244681.3.579.2.618846-25-0059Htlambi21810178 2.840.1.562032.3.57[id number] 2.0.1.493498.3.57[id number] 2.840.1.045212.3.57[id number] 2.840.1.177466.3.579.2.1246 [id number] 1961Medicare [id number] [facility] [id number] 2.840.1.2[id number] 2.0.1.909954.3.579.2.531 Social History DateTypeDetailFacilityStart: 07-13-2023 End: 16-74-4171Ka alcohol useNo alcohol useNOMS HealthcareComment on above:1 pack daily;Start: 04-13-2023 End: 19-68-0934Gcyppat smoking status NHISSmokes tobacco dailyUnMercy Health Clermont HospitalStart: 32-26-2140Npcpoep of tobacco useCigarette Smoker [facility] Work Phone: Start: 04-13-2023 End: 18-66-7197Hlmefve use and exposureSmokeless tobacco non-userUnMercy Health Clermont Hospital Work Phone: Start: 07-19-2023 End: 58-90-6561Diepvta intakeLifetime non-drinker (finding)[facility] Work Phone: Start: 07-13-2023 End: 11-18-9807Cjkscwy use panelNONJ HealthcareStart: 85-30-1120Rof Assigned At BirthNot on fileUnMercy Health Clermont Hospital Work Phone: Start: 07-12-2023 End: 73-54-1879Ffxgmalw to SARS-CoV-2 (event)Not sureUnMercy Health Clermont HospitalStart: 04-03-2022 End: 48-17-1050Utuoyfgfv of Social Gatherings with Friends and FamilyNot [...] got money to buy more.Never trueNOMS HealthcareStart: [id number] smoking status NHISSmoker (finding)[facility]: 04-03-2022 End: [id number] (finding)[facility] Cent[facility]art: [id number] Assigned At [facility] Hospitaltart: [phone] smoking status NHISEx-smokerCherrington Hospital Work Phone: Medical Equipment Procedure CodeEquipment CodeEquipment Original TextEquipment IdentifierDates Lead, Capsurefix Novus, 52 Cm - [id number]: 32-94-7059Dewc, Capsurefix Novus, 45 Cm - [id number]: 97-07-1590Cwydvvydd, Dual Chamber, Kae Mri Xt Dr - [id number]: 53-99-5241Wsjs 74w95jg Progrip [facility] - [id number]: 06-30-2021 Functional Status BsmkXuszxrhtgyPcypvbDxmlozvg12-07-3777Tutonyc Health Questionnaire 2 item (PHQ- 2) [Reported][facility] Xgflrekzck83-13-6043Wmwyp score [AUDIT-C]0 10/09/2023 9:03 AM EDT UsherBuddytroyMediaWorksMercy McCune-Brooks HospitalHaiysuyjvx49-91-3136Eax often do you have a drink containing alcohol?Never 10/09/2023 9:03 AM EDT UsherBuddyHCA [facility] Division06-02-2024Functional statusPatient does not drink 10/09/2023 9:03 AM EDT [employer], Nveloped Patient does not drinkMercy McCune-Brooks HospitalDilbzlewrp30-17-9097Rhw often do you have 6 or more drinks on 1 occasion?Never 10/09/2023 9:03 AM T [facility]BuddySt. [facility] Clinical Notes 08-31-2020 to 02-05-2025 Note Date & OxflIpgmLgkoxxqs48-76-9128 NoteNeurosurgery Consult Chief Complaint: Right leg and [...] repair. He has seen Dr. Marcelino with [facility] surgery in the past. Despite these interventions, [...] Resource Strain: Low Risk (10/09/2023) [facility] Overall Financial Resource Strain (CARDIA) Difficulty of Paying Living Expenses: Not hard at all Food Insecurity: No Food Insecurity (12/07/2023) Received from [facility] Hunger Screening Within the past 12 months we worried whether our food would run out before we got money to buy more.: Never True Within the past 12 months the food we bought just didn't last and we didn't have money to get more.: Never True Transportation Needs: No Transportation Needs (10/09/2023) Re[facility] PRAPARE - Transportation Lack of Transportation (Medical): No Lack of Transportation (Non-Medical): No Physical Activity: Insufficiently Active (10/09/2023) [facility] Exercise Vital Sign Days of Exercise per Week: 2 days Minutes of Exercise per Session: 10 min Stress: No Stress Concern Present (10/09/2023) Re[facility] [employer] - Occupational Stress Questionnaire Feeling of Stress : Not at all Social Connections: Unknown (10/09/2023) [facility] Social Connection and Isolation Panel [NHANES] Frequency of Communication with Friends and Family: More than three times a week Frequency of Social Gatherings with Friends and Family: Not on file Attends Jehovah'S Witness Services: Patient declined Active Member of Clubs or Organizations: No Attends Club or Organization Meetings: Patient declined Marital Status: Living with partner Intimate Partner Violence: Unknown (02/05/2025) Humiliation, Afraid, Rape, and Kick questionnaire Fear of Current or Ex-Partner: No Emotionally Abused: Not on file Physically Abused: Not on file Sexually Abused: Not on file Housing Stability: Low Risk (10/09/2023) [facility] Housing Stability Vital (more content not included)...[facility]08-18-2025 History of Present illness Narrative* Ishmael Simon MD - 12/24/2024 9:24 AM [...] diet and limit carbs. documented in this encounterMercy McCune-Brooks HospitalAexkvfgeso83-33-4959 History of Present illness Narrative* Amador Son [...] A DAY cetirizine (ZYRTEC) 10 mg, Nightly joxmzhfayqh-ioigyoepw-csuestzx (TRELEGY-ELLIPTA) 100-62.5-25 mcg blister with device 1 [...] a BMI 35.27. Plan recommendation From the groundwater consultant on point he is stable. He is [...] [4] No Known Allergies documented in this encounterCherrington Hospital Work Phone: [phone]) 817-686207-23-2025 Instructions* Patient Instructions* Jazz Flynn RN - [...] your visit. Follow up with our physician assistant professor of communication, Vaishnavi, in 6 months with device check Continue remote checks at 3 and 9 months IJazz RN, AM SCRIBING FOR, AND IN THE PRESENCE OF DR. AMADOR SON MD documented in this encounterCherrington Hospital Work Phone: [phone]) 682-582306-17-2025 History of Present illness Narrative* Ishmael Simon MD - 10/23/2024 10:05 AM EDTAssociated Problem(s): Type 2 diabetes mellitus with hyperglycemia, without long-term current use of insulin (HCC) Not checking BS and due for A1C. Stick to ADA diet and limit carbs. * Ishmael Simon MD - 10/23/2024 10:05 [...] (BMI) of 39.0 to 39.9 in adult ([facility]) Weight loss indicated. * Ishmael Simon MD [...] hyperglycemia, without long-term current use of insulin ([facility]) - Primary Not checking BS and due [...] index (BMI) of39.0 to 39.9 in adult ([facility]) Weight loss indicated. Relevant Orders TSH Primary osteoarthritis of right hip Pain stable and use percocet PRN. Continue home PT exercises. documented in this encounterMercy McCune-Brooks HospitalXwxiqzmhqk48-33-6757 History of Present illness Narrative* Ishmael Simon MD - 07/23/2024 10:54 AM EDTAssociated Problem(s): Type 2 diabetes mellitus with hyperglycemia, without long-term current use of insulin ([facility]) Not checking BS but A1C controlled. Stick [...] 10:53 AM EDTAssociated Problem(s): Essential hypertension, benign ([facility]) BP controlled and monitor PRN. * Ishmael Simon MD - 07/23/2024 10:53 AM EDTAssociated Problem(s): DDD (degenerative disc disease), lumbar Pain stable and follow with pain management for procedures. * Ishmael Simon MD - 07/23/2024 10:53 AM EDTAssociated Problem(s): Class 2 severe obesity due to excess calories with serious comorbidity and body mass index (BMI) of 38.0 to 38.9 in adult ([facility]) Weight loss indicated. * Ishmael Simon MD - 07/23/2024 10:52 AM EDTAssociated Problem(s): Chronic obstructive pulmonary disease ([facility]/HCC) Increased symptoms and treat with levaquin and [...] Continue home PT exercises. documented in this [facility]02-05-2025 History of Present illness Narrative* Valentino Ty MD - 06/13/2024 9:10 AM EST Subjective [...] once daily at bedtime., Disp: , Rfl: qystzaqrfzx-cyvccrsgo-dlbkdvsz (TRELEGY-ELLIPTA) 100-62.5-25 mcg blister with device, Inhale [...] exam, discussion and plan. documented in this encounterCherrington Hospital Work Phone: [phone]) 986-742302-05-2025 Instructions* Patient Instructions* Yola Morrow LPN - [...] follow up per routine documented in this encounterCherrington Hospital Work Phone: [phone] 113-873701-29-2025 History of Present illness Narrative* Ishmael Simon MD - 06/06/2024 10:12 AM ESTAssociated Problem(s): Essential hypertension, benign (CMS/HCC) BP controlled and monitor PRN. * Ishmael Simon MD - 06/06/2024 10:12 AM ESTAssociated Problem(s): Class 2 severe obesity due to excess calories with serious comorbidity and body mass index (BMI) of 36.0 to 36.9 in adult ([facility]) Weight loss indicated. * Ishmael Simon MD - 06/06/2024 10:11 AM ESTAssociated Problem(s): Chronic obstructive pulmonary disease ([facility]) Recent exacerbation but improved. Complete prednisone as directed. Use albuterol PRN. * Ishmael Simon MD - 06/06/2024 10:11 AM ESTAssociated Problem(s): Chronic hypoxic respiratory failure ([facility]) Normal SpO2 on room air and continue [...] HFA 90 mcg/act inhaler documented in this encounterMercy McCune-Brooks HospitalJdcseaoagf48-77-0354 Note Gram Stain Evaluation This specimen is of good quality and is acceptable for routine [facility] HospitalVinybevbkv69-47-4843 NoteGRAM STAIN EVALUATIONbacterial culture.[facility]ionalOne Health CenterPtpeoutdem53-07-3892 History of Present illness Narrative* Amador Son [...] A DAY cetirizine (ZYRTEC) 10 mg, Nightly nncioqfmlfs-qncmwjiym-dsjblwbr (TRELEGY-ELLIPTA) 100-62.5-25 mcg blister with device 1 [...] status post dual- chamber pacemaker implant (Medtronic [place] XT DR MRI) on August 05, 2023. [...] to prepare this document. documented in this [facility] Work Phone: [phone]) 355-275701-15-2025 Instructions* Patient Instructions* Jazz Flynn RN - [...] DR. AMADOR SON MD documented in this [facility] Work Phone: [phone] 196-267512-17-2024 History of Present illness Narrative* Ishmael Simon MD - 04/24/2024 11:38 AM ESTAssociated Problem(s): Class 2 severe obesity due to excess calories with serious comorbidity and body mass index (BMI) of 37.0 to 37.9 in adult ([facility]) Weight up 28 pounds in past year. Add ozempic. * Ishmael Simon MD - 04/24/2024 11:38 AM ESTAssociated Problem(s): Essential hypertension, benign ([facility]) BP controlled and monitor PRN. * Ishmael Simon MD - 04/24/2024 11:38 AM ESTAssociated Problem(s): Type 2 diabetes mellitus with hyperglycemia, without long-term current use of insulin ([facility]) Not checking BS and due [...] Items Addressed This Visit Essential hypertension, benign ([facility]) BP controlled and monitor PRN. Type 2 diabetes mellitus with hyperglycemia, without long-term current use of insulin ([facility]) Not checking BS and due for A1C. Add ozempic. Relevant Medications semaglutide (Ozempic, 0.25 or 0.5 MG/DOSE,) 2 MG/1.5ML solution pen-injector Other Relevant Orders Hemoglobin A1c Class 2 severe obesity due to excess calories with serious comorbidity and body mass index (BMI) of37.0 to 37.9 in adult ([facility]) Weight up 28 pounds in [...] Discussed daily Aspirin therapy. documented in this encounterMercy McCune-Brooks HospitalCjtsqbmgwf36-15-3916 History of Present illness Narrative* Ishmael Simon [...] Chlamydia DNA probe, direct documented in this encounterMercy McCune-Brooks HospitalHskxjzkzkt00-50-1541 History of Present illness Narrative* Ishmael Simon MD - 01/13/2024 10:05 AM EDTAssociated Problem(s): Type 2 diabetes mellitus with hyperglycemia, without long-term current use of insulin ([facility]) Not checking BS and A1C 5.8. Stick to ADA diet and limit carbs. * Ishmael Simon MD - 01/13/2024 10:05 AM EDTAssociated Problem(s): Primary osteoarthritis of right hip Pain stable and use percocet PRN. Continue home PT exercises. * Ishmael Simon MD - 01/13/2024 10:05 AM EDTAssociated Problem(s): Essential hypertension, benign ([facility]) BP controlled and monitor PRN. * Ishmael Simon MD - 01/13/2024 10:05 AM EDTAssociated Problem(s): DDD (degenerative disc disease), lumbar Pain worse and follow with pain management for ablation. * Ishmael Simon MD - 01/13/2024 10:04 AM EDTAssociated Problem(s): Chronic obstructive pulmonary disease ([facility]) Symptoms worse and treat with prednisone. Continue trelegy and use albuterol PRN. * Ishmael Simon MD - 01/13/2024 10:04 AM EDTAssociated Problem(s): Chronic diastolic heart failure ([facility]) Occasional edema and use lasix PRN. Elevate [...] He is alert. Assessment/Plan documented in this encounterMercy McCune-Brooks HospitalGwrmhirynt54-38-5965 Miscellaneous Notes* Telephone Encounter - Sheri Chau [...] if pain get's worse. [facility] Telephone encounter Note* Telephone Encounter - [...] surgery. Let me know. Thanks, Dr. Galindo [facility]08-19-2024 Telephone encounter Note* Telephone Encounter - [...] vascular surgery referral if pain get's worse. [facility]07-31-2024 History of Present illness Narrative* Roc Ramsey, - 12/07/2023 10:00 AM EDT Images from the original note were not included. [facility] [address] [id number] progress NOTE CHIEF COMPLAINT Chief Complaint Patient presents with Follow-up RECHECK INGUINAL HERNIA, RIGHT Liliananakul Michaels . is a 58 y.o. male who presents along with his with complaints of pain in his right groin and right anterior thigh. He used to receive radiofrequency ablation from the [facility] pain management but the last 1 [...] History: Diagnosis Date Acute renal failure (ARF) ([facility]) unknown origin Arrhythmia Bradycardia Bilateral carpal tunnel syndrome BPH with urinary obstruction Bradycardia Chronic hypoxemic respiratory failure ([facility]) Cigarette nicotine dependence COPD (chronic obstructive pulmonary disease) ([facility]) Degenerative disc disease, lumbar Dental disease Diabetes mellitus ([facility]) ED (erectile dysfunction) Hypertension Insomnia intermediate (current) use of inhaled steroids Morbid obesity ([facility]) Nasal polyps Obesity TAHIR (obstructive sleep apnea) [...] Resource Strain: Low Risk (10/09/2023) [facility] Overall Financial Resource Strain (CARDIA) Difficulty of Paying Living Expenses: Not hard at all Food Insecurity: No Food Insecurity (12/07/2023) Hunger Screening Food Insecurity - Worry: Never True Food Insecurity - Inability: Never True Transportation Needs: No Transportation Needs (10/09/2023) [facility] PRAPARE - Transportation Lack of Transportation (Medical): No Lack of Transportation (Non-Medical): No Physical Activity: Insufficiently Active (10/09/2023) [facility] Exercise Vital Sign Days of Exercise per Week: 2 days Minutes of Exercise per Session: 10 min Stress: No Stress Concern Present (10/09/2023) [facility] [employer] - Occupational Stress Questionnaire Feeling of Stress : Not at all Social Connections: Unknown (10/09/2023) [facility] Social Connection and Isolation Panel [NHANES] Frequency of Communication with Friends and Family: More than three times a week Frequency of Social Gatherings with Friends and Family: Not on file Attends Jehovah'S Witness Services: Patient declined Active Member of Clubs or Organizations: No Attends Club or Organization Meetings: Patient declined Marital Status: Living with partner Interpersonal Safety: Not on file Housing Instability: Low Risk (10/09/2023) [facility] Housing Stability Vital Sign Unable to Pay [...] refer back to pain management at the [facility] 3. Left inguinal hernia asymptomatic will observe 4. Umbilical hernia asymptomatic will observe 5. Weight loss recommended He and his significant other understood all the above. Evaluation included: Preparing to see the patient (e.g., review of tests) Obtaining and/or reviewing separately obtained history Performing a medically appropriate examination and/or evaluation Counseling and educating the patient/family/caregiver Referring and communicating with other health primary health care nurse No primary diagnosis found. Roc Ramsey DO This note was created with the assistance of a speech recognition program. While intending to generate a timely document that accurately reflects the content of the visit, no guarantee can be provided that every grammatical or spelling mistake has been or will be identified or corrected. Thank you for your understanding. documented in this encounterC[facility]07-[facility] Instructions* Patient Instructions* Roc Ramsey DO - 12/07/2023 10:00 AM EDT Are You Ready To Kick The Habit? Free Tobacco Cessation Resources [facility] Tobacco Treatment Center Services [facility] Tobacco Treatment Centers provide all employees with free tobacco cessation services that include: Counseling to understand nicotine addiction Education about medications that can help you successfully quit Assistance with developing a plan to quit Call to set up an individual appointment or find out when group classes will be held: Allen acharya [facility]: [phone] [facility]: [phone] [facility]: [phone] [facility]: [phone] Quit Smoking Action Plan and Resources [facility] offers an eight-week, online smoking cessation plan to all [facility] employees, regardless of whether [employer] is your medical insurance provider. Go to [email or web address] and click the Health Risk Assessment and Resources link to get started. In the [employer] menu, click Action Plans instead of Health Risk Assessment to access the Quit Smoking Action Plan. Additional smoking cessation resources are also available to all [facility] employees on the [employer] web page at [email or web address]. [place] Tobacco Cessation Program If [employer] is your medical insurance provider, there are more free resources available to you, including: No copays or deductibles on local tobacco cessation counseling services to help you quit Prescription assistance for tobacco cessation medications to help you quit For details about the tobacco cessation program available to [employer] members, go to www.[employer] (Search: Tobacco Cessation Program). [place] Tobacco Quit Line 8-919-KUYO-NOW ( ) is a toll-free, telephonic service that helps [place] residents quit smoking and using tobacco. It is staffed by experts who tailor a quit plan for you and provide you with advice. [place] Tobacco Quit Line 8-520-YAJV-NOW ( ) is a toll-free, telephonic service that helps [place] residents quit smoking and using tobacco. It is staffed by experts who tailor a quit plan for you and provide you with advice. Two weeks of nicotine replacement therapy may be provided at no charge, if needed. Additional Resources These national organizations also offer free information and resources to help you quit tobacco: [place] [employer]--www.cancer.org/healthy/stayawayfromtobacco [place] [employer]--www.heart.org (Search: Quit Smoking) Centers for Disease Control and Prevention--www.cdc.gov/tobacco [place] [employer]--www.lungusa.org documented in this encounterCincinnati Shriners HospitalCrowd Technologies [facility]iacOpniwj72-53-8164 History of Present illness Narrative* Naima Wright, LYNN-FAMILY REUNIFICATION SPECIALIST - 11/09/2023 11:00 AM EDT CARDIOLOGY OFFICE [...] DAY cetirizine (ZYRTEC) 10 mg, oral, Nightly bfzxzgoiira-fvhywrvfb-dayegrjq (TRELEGY-ELLIPTA) 100-62.5-25 mcg blister with device 1 [...] 68 bpm, prolonged AV conduction with a IN interval of 220 ms, QRS durations 100 [...] status post dual- chamber pacemaker implant ([employer]tronic [place] XT DR MCCORMICK) on August 05, 2023. [...] to prepare this document. documented in this [facility] Work Phone: 1(603) 516-526204-03-2024 History of Present illness Narrative* Amador Son [...] some point he had some evaluation in [place] that shows no significant obstructive coronary disease [...] night however but few episodes in the healthcare specialist hours were also noted 5. No [...] Diagnosis Date Arrhythmia CHF (congestive heart failure) ([facility]) COPD (chronic obstructive pulmonary disease) ([facility]) Hypertension Social History Social History [...] breakfast cetirizine (ZYRTEC) 10 mg, oral, Nightly ngwudxhdmbx-qwwgbjdvt-vhzkosen (TRELEGY-ELLIPTA) 100-62.5-25 mcg blister with device 1 [...] to prepare this document. documented in this [facility] Work Phone: 1(260) 736-696704-03-2024 Instructions* Patient Instructions* Vero Mccarthy LPN - [...] Dr. Amador Son MD documented in this encounterCherrington Hospital Work Phone: [phone]) [phone] Nurse Note* Ronda Souza RN - 08/05/2023 7:45 PM EDT Patient discharge instructions reviewed with patient and , verbalized understanding. Lt chest dressing remains dry/intact, no hematoma, no ecchymosis. Patient able to teachback site care instructions, follow up appointments. IV x2 removed and patient discharged to home via w/c. [facility]03-29-20[facility] Nurse Note* Ronda Souza RN - 08/05/2023 [...] needs at this time. documented in this [facility] Work Phone: [phone]) 666-541703-29-2024 Nurse Note* Ronda Souza RN - 08/05/2023 7:20 PM EDT Patient sitting up in chair, denies any complaints of incisional pain. Lt upper chest incision remains dry/intact. Will begin discharge instructions. [facility] Work Phone: [phone]) 402-376403-29-2024 Nurse Note* Ronda Souza RN - 08/05/2023 6:30 PM EDT Patient ambulated to BR, gait steady. Pacer rep has already met with patient and . Lt upper chest dressing remains dry/intact. Lt arm in immobilizer and ice pack over site. [facility] Work Phone: 1([phone]) 615-513303-29-2024 Note* Significant Event - Ramu Vidal RN - 08/05/2023 5:10 PM EDT Post EKG and CXR performed at bedside. Pt denies needs at this time. Left chest remains soft and stable with no hematoma or oozing. [facility] Work Phone: [phone]) 160-235803-29-2024 Miscellaneous Notes* Significant Event - Ramu Vidal [...] alternatives discussed with patient. documented in this encounterCherrington Hospital Work Phone: [phone]) [phone] Hospital Discharge instructions* Discharge Instructions* CHIDI Ferreira [...] arm above shoulder level. Do not fruit or nut picker items that weigh greater than [...] have been instructed by the device company advertising sales representative regarding remote home monitoring. There [...] Care Everywhere. * Pacemaker Insertion Discharge Instructions ([place]) documented in this [facility] Work Phone: 1(768) 307-137803-29-2024 Note* Significant Event - Ramu Vidal RN [...] Pt denies further needs at this time. [facility] Work Phone: 1(166) 483-632003-29-2024 NoteTable formatting from the original result was [...] of infection. The patient should call the groundwater consultant immediately if symptoms recur, or for [...] model number W1 DR 017 number [id number]. Right atrial lead Medtronic 5076/45 serial number [id number] 8 mm 101V. Imp (more content not included)...[id number] Note* Pre-Sedation Documentation - Amador Son MD - 08/05/2023 4:40 PM EDT Sedation Plan ASA 2 Mallampati class: II. Risks, benefits, and alternatives discussed with patient. [facility] Work Phone: [phone]) [phone] Attending History and physical note* Amador Son [...] some point he had some evaluation in [place] that shows no significant obstructive coronary disease [...] night however but few episodes in the healthcare specialist hours were also noted 5. No [...] breakfast cetirizine (ZYRTEC) 10 mg, oral, Nightly vxiscahlmgb-frnihlkem-cnyaqunb (TRELEGY-ELLIPTA) 100-62.5-25 mcg blister with device 1 [...] software was utilized to prepare this document. [facility] Work Phone: [phone]) [phone] History and physical note* Amador Son MD [...] some point he had some evaluation in [place] that shows no significant obstructive coronary disease [...] night however but few episodes in the healthcare specialist hours were also noted 5. No [...] breakfast cetirizine (ZYRTEC) 10 mg, oral, Nightly lbhhlqqzhcz-darktwtsy-ycujawuq (TRELEGY-ELLIPTA) 100-62.5-25 mcg blister with device 1 [...] to prepare this document. [facility] [phone] 543-172503-29-2024 Nurse Note* Ramu Vidal RN - 08/05/2023 3:20 PM EDT [employer] from [employer] in room speaking to Pt and SO educating on home device monitor. [facility]03-29-2024 Nurse Note* Ramu Vidal RN - 08/05/2023 1:25 PM EDT Pt returned to room after echocardiogram. Denies needs at this time. [facility] Work Phone: [phone]) 317-768603-15-2024 History of Present illness Narrative* Amador Son [...] some point he had some evaluation in [place] that shows no significant obstructive coronary disease [...] night however but few episodes in the healthcare specialist hours were also noted 5. No [...] breakfast cetirizine (ZYRTEC) 10 mg, oral, Nightly fsxzkdjkxib-dyndwuuob-vdnhfypg (TRELEGY-ELLIPTA) 100-62.5-25 mcg blister with device 1 [...] to prepare this document. [facility] Work Phone: [phone]) 908-420003-15-2024 Instructions* Patient Instructions* Jazz Flynn RN - [...] DR. AMADOR SON MD documented in [facility] Work Phone: [phone]) 333-813403-14-2023 NoteCONSULTATION PROCEDURE DATE: 07/20/2022 Procedure was performed [...] as right medial portion of his leg.[facility] [id number] NoteCONSULTATION CONSULTATION DATE: 05/07/2022 HISTORY OF PRESENT [...] in three months' time unless otherwise indicated.[facility] [id number] NoteCONSULTATION CONSULTATION DATE: 01/14/2022 HISTORY OF PRESENT [...] it was recommended that he see a model maker plastic, which he did do. He did a Holter monitor study and is following up with his model maker plastic on 01/28/2022. Current medications include gabapentin 300 [...] Patient agrees with the plan of care.[facility] [id number] NoteCONSULTATION CONSULTATION DATE: 11/19/2021 This is a [...] to S1. Activities such as standing, walking, healthcare specialist and evening hours, stairs, bending and [...] [facility] Signed and Approved by: YOLA COLMENARES . 11/27/2021 14:13:00[facility]06-16-2022 NoteCONSULTATION CONSULTATION DATE: 10/22/2021 HISTORY OF [...] [facility] Signed and Approved by: YOLA COLMENARES . 11/04/2021 16:23:00[facility]05-26-2022 NoteCONSULTATION CONSULTATION DATE: 10/01/2021 HISTORY OF [...] shape. He has seen Dr. Nunn in [place] in the past regarding his back, and [...] Patient agrees with the plan of care. [facility] Signed and Approved by: YOLA COLMENARES . 10/08/2021 16:01:00[facility]04-25-2021 NoteMicrobiology PROCEDURE: Blood Culture Charcoal [R1] [...] Locations R1: This test was performed at: [facility], [address] [place] [address], [id number] , , Bfzb[facility] CenterComment on above:Performed By: #### [id number] ####[facility] [address] [place], [place] [id number] NoteMicrobiology PROCEDURE: Blood Culture Charcoal [R1] SOURCE: Blood BODY SITE: Arm R COLLECTED DATE/TIME: 08/24/2020 00:35 EDT RECEIVED DATE/TIME: 08/24/2020 03:42 EDT START DATE/TIME: 08/24/2020 03:42 EDT FREE TEXT SOURCE: Peripheral vein site #[address], David Palacio MD, David FINAL REPORTS Final Report [] Verified Date/Time: 08/31/2020 07:00 EDT No growth at 7 days. Performing Locations R1: This test was performed at: [facility], [address] [place] [address], [address] [place] [address], RygoycDiley Ridge Medical CenterComment on above:Performed By: #### [id number] ####[facility] [id number] [place], [place] [address]Dtutnmclbe note* Diagnosis 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 Sinus bradycardia Other specified cardiac dysrhythmias Establishing care with new doctor, encounter for BMI 34.0-34.9,adult Sick sinus syndrome (CMS/HCC) Sinoatrial node dysfunction Simple chronic bronchitis (CMS/HCC) Simple chronic bronchitis Current smoker Other fatigue Preoperative cardiovascular examination Pre-operative cardiovascular examination documented in this encounter [facility] Work Phone: Evaluation note* Diagnosis Other [...] dysfunction Other fatigue documented in this encounter [facility] Work Phone: Evaluation note* Diagnosis Localized swelling on left hand S/P placement of cardiac pacemaker 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 Abnormal stress test Other nonspecific abnormal cardiovascular system function study Sinus bradycardia Other specified cardiac dysrhythmias Sick sinus syndrome (CMS/HCC) Sinoatrial node dysfunction Essential hypertension, benign BMI 34.0-34.9,adult Current smoker documented in this encounter [facility] Work Phone: Evaluation note* Diagnosis Localized swelling on left hand S/P placement of cardiac pacemaker documented in this encounter [facility] Work Phone: Evaluation note* Diagnosis Cardiac pacemaker in situ Sinoatrial node dysfunction (Multi) Sinoatrial node dysfunction documented in this encounter [facility] Work Phone: Evaluation note* Diagnosis Cardiac pacemaker in situ Sinoatrial node dysfunction (Multi) Sinoatrial node dysfunction documented in this encounter [facility] Work Phone: Evaluation note* Diagnosis Type [...] lumbosacral intervertebral disc documented [facility] this [facility] HealthcareEvaluation noteNo assessment information availableWvumedicine [facility] Work Phone: Evaluation note* Diagnosis MRI [...] (pediatric) Current smoker documented in this encounter [facility] Work Phone: Evaluation note* Diagnosis Pacemaker Cardiac pacemaker in situ documented in this encounter [facility] Work Phone: Evaluation note* Diagnosis Type [...] in adult (CMS/HCC) documented in this encounter [facility] HealthcareEvaluation note* Diagnosis Cardiac pacemaker in situ Sinoatrial node dysfunction (Multi) Sinoatrial node dysfunction documented in this encounter [facility] Work Phone: Evaluation note* Diagnosis Degeneration of lumbar intervertebral disc Degeneration of lumbar or lumbosacral intervertebral disc documented in this encounter [facility] HealthcareEvaluation note* Diagnosis Type 2 diabetes [...] examination of urine documented in this encounter [facility] HealthcareEvaluation note* Diagnosis Type 2 diabetes mellitus [...] lumbosacral intervertebral disc documented in this encounter [facility] HealthcareEvaluation note* Diagnosis Cardiac pacemaker in situ- Primary Sick sinus syndrome (Multi) Sinoatrial node dysfunction MRI safe cardiac pacemaker in situ Abnormal EKG Nonspecific abnormal electrocardiogram (ECG) (EKG) Chronotropic incompetence Other specified conduction disorder Sinoatrial node dysfunction (Multi) Sinoatrial node dysfunction Sinus bradycardia Other specified cardiac dysrhythmias Current smoker BMI 37.0-37.9, adult documented in this encounter [facility] Work Phone: Evaluation note* Diagnosis Sinus bradycardia Other specified cardiac dysrhythmias Sick sinus syndrome (Multi) Sinoatrial node dysfunction Chronotropic incompetence Other specified conduction disorder MRI safe cardiac pacemaker in situ documented in this encounter [facility] Work Phone: Evaluation note* Diagnosis Type [...] lumbosacral intervertebral disc documented in this encounter [facility] HealthcareEvaluation note* Diagnosis Type 2 diabetes [...] lumbosacral intervertebral disc documented in this encounter [facility] HealthcareEvaluation note* Diagnosis Type 2 diabetes [...] hyperglycemia, without long-term current use of insulin ([facility]/HCC)- Primary Essential hypertension, benign (CMS/HCC) Essential hypertension, benign Chronic diastolic heart failure (CMS/HCC) Chronic diastolic heart failure DDD (degenerative disc disease), lumbar Degeneration of lumbar or lumbosacral intervertebral disc Primary osteoarthritis of right hip Chronic obstructive pulmonary disease, unspecified COPD type (CMS/HCC) Chronic pain of both shoulders Type 2 diabetes mellitus with other specified complication, without long-term current use of insulin ([facility]) Vasculogenic erectile dysfunction, unspecified vasculogenic erectile dysfunction type Type 2 diabetes mellitus with diabetic peripheral angiopathy without gangrene, without long-term current use of insulin ([facility]) Peripheral vascular disease, unspecified (I73.9) [...] hyperglycemia, without long-term current use of insulin ([facility]) Essential hypertension, benign (CMS/HCC) Essential hypertension, benign Class 2 severe obesity due to excess calories with serious comorbidity and body mass index (BMI) of37.0 to 37.9 in adult ([facility]) Chronic obstructive pulmonary disease with acute exacerbation (CMS/[facility])- Primary Chronic hypoxic respiratory failure (CMS/[facility]) Class 2 severe obesity due to excess calories with serious comorbidity and body mass index (BMI) of36.0 to 36.9 in adult ([facility]) Essential hypertension, benign (CMS/HCC) Essential hypertension, benign documented in this encounter [facility] HealthcareEvaluation note* Diagnosis Sick sinus syndrome (Multi)- Primary Sinoatrial node dysfunction Chronotropic incompetence Other specified conduction disorder Peripheral vascular disease, unspecified ([facility]) Peripheral vascular disease, unspecified Pacemaker Cardiac pacemaker in situ Essential hypertension, benign Sinus bradycardia Other specified cardiac dysrhythmias Hyperlipidemia, unspecified hyperlipidemia type Dyspnea on exertion Other dyspnea and respiratory abnormality BMI 37.0-37.9, adult Former smoker Personal history of tobacco use, presenting hazards to health Mild coronary artery disease documented in this encounter [facility] Work Phone: Evaluation note* Diagnosis Right leg pain- Primary Pain in soft tissues of limb Tobacco abuse Tobacco use disorder Class 3 severe obesity due to excess calories with serious comorbidity in adult, unspecified BMI ([facility]-HCC) Left inguinal hernia Inguinal hernia without mention of obstruction or gangrene, unilateral or unspecified, (not specified as recurrent) Claudication ([facility]-HCC) Unspecified peripheral vascular disease [facility] Diagnosis Claudication ([facility])- Primary Unspecified peripheral vascular disease [facility]* Diagnosis Type 2 diabetes [...] index (BMI) of37.0 to 37.9 in adult ([facility]) Chronic obstructive pulmonary disease with acute exacerbation (CMS/[facility])- Primary Chronic hypoxic respiratory failure (CMS/[facility]) Class 2 severe obesity due to excess calories with serious comorbidity and body mass index (BMI) of36.0 to 36.9 in adult ([facility]) Essential hypertension, benign (CMS/HCC) Essential hypertension, benign Degeneration of lumbar intervertebral disc Degeneration of lumbar or lumbosacral intervertebral disc documented in this encounter [facility] HealthcareEvaluation note* Diagnosis Type 2 diabetes mellitus with hyperglycemia, without long-term current use of insulin ([facility]/HCC)- Primary Essential hypertension, benign (CMS/HCC) Essential hypertension, benign Chronic diastolic heart failure (CMS/HCC) Chronic diastolic heart failure DDD (degenerative disc disease), lumbar Degeneration of lumbar or lumbosacral intervertebral disc Dyslipidemia ([facility]/HCC) Other and unspecified hyperlipidemia Screening PSA (prostate [...] complication, without long-term current use of insulin ([facility]) Vasculogenic erectile dysfunction, unspecified vasculogenic erectile dysfunction type Type 2 diabetes mellitus with diabetic peripheral angiopathy without gangrene, without long-term current use of insulin ([facility]) Peripheral vascular disease, unspecified (I73.9) Peripheral vascular disease, unspecified Type 2 diabetes mellitus with hyperglycemia, without long-term current use of insulin ([facility]/HCC)- Primary Essential hypertension, benign ([facility]) Essential hypertension, benign Chronic diastolic heart failure ([facility]) Chronic diastolic heart failure Chronic obstructive pulmonary disease, unspecified COPD type (CMS/[facility]) DDD (degenerative disc disease), lumbar Degeneration of lumbar or lumbosacral intervertebral disc Primary osteoarthritis of right hip Body mass index (BMI) 35.0-35.9, adult Dysuria- Primary Acute prostatitis Pyuria Other nonspecific finding on examination of urine Medicare annual wellness visit, subsequent- Primary Type 2 diabetes mellitus with hyperglycemia, without long-term current use of insulin ([facility]) Essential hypertension, benign ([facility]) Essential hypertension, benign Class 2 severe obesity due to excess calories with serious comorbidity and body mass index (BMI) of37.0 to 37.9 in adult ([facility]) Chronic obstructive pulmonary disease with acute exacerbation ([facility])- Primary Chronic hypoxic respiratory failure ([facility]) Class 2 severe obesity due to excess calories with serious comorbidity and body mass index (BMI) of36.0 to 36.9 in adult ([facility]) Essential hypertension, benign (CMS/[facility]) Essential hypertension, benign Type 2 diabetes mellitus with hyperglycemia, without long-term current use of insulin ([facility])- Primary Essential hypertension, benign ([facility]) Essential hypertension, benign Chronic diastolic heart failure ([facility]) Chronic diastolic heart failure Primary osteoarthritis of right hip Degeneration of intervertebral disc of lumbar region with discogenic back pain Chronic obstructive pulmonary disease with acute exacerbation ([facility]) Peripheral vascular disease, unspecified ([facility]) Peripheral vascular disease, unspecified Class 2 severe obesity due to excess calories with serious comorbidity and body mass index (BMI) of38.0 to 38.9 in adult ([facility]) Type 2 diabetes mellitus with other specified complication ([facility]) Male erectile dysfunction, unspecified Type 2 diabetes mellitus with diabetic peripheral angiopathy without gangrene ([facility]) documented in this encounter [facility] HealthcareEvaluation note* Diagnosis Type 2 diabetes [...] lumbosacral intervertebral disc documented in this encounter [facility] HealthcareEvaluation note* Diagnosis Cardiac pacemaker in situ documented in this encounter [facility] Work Phone: Evaluation note* Diagnosis Type [...] gangrene, without long-term current use of insulin ([facility]) Peripheral vascular disease, unspecified (I73.9) Peripheral vascular disease, unspecified Type 2 diabetes mellitus with hyperglycemia, without long-term current use of insulin ([facility])- Primary Essential hypertension, benign ([facility]) Essential hypertension, benign Chronic diastolic heart failure ([facility]) Chronic diastolic heart failure Chronic obstructive pulmonary disease, unspecified COPD type ([facility]) DDD (degenerative disc disease), lumbar Degeneration of lumbar or lumbosacral intervertebral disc Primary osteoarthritis of right hip Body mass index (BMI) 35.0-35.9, adult Dysuria- Primary Acute prostatitis Pyuria Other nonspecific finding on examination of urine Medicare annual wellness visit, subsequent- Primary Type 2 diabetes mellitus with hyperglycemia, without long-term current use of insulin ([facility]) Essential hypertension, benign ([facility]) Essential hypertension, benign Class 2 severe obesity due to excess calories with serious comorbidity and body mass index (BMI) of37.0 to 37.9 in adult ([facility]) Chronic obstructive pulmonary disease with acute exacerbation ([facility])- Primary Chronic hypoxic respiratory failure ([facility]) Class 2 severe obesity due to excess calories with serious comorbidity and body mass index (BMI) of36.0 to 36.9 in adult ([facility]) Essential hypertension, benign ([facility]) Essential hypertension, benign Type 2 diabetes mellitus with hyperglycemia, without long-term current use of insulin ([facility])- Primary Essential hypertension, benign ([facility]) Essential hypertension, benign Chronic diastolic heart failure ([facility]) Chronic diastolic heart failure Primary osteoarthritis of right hip Degeneration of intervertebral disc of lumbar region with discogenic back pain Chronic obstructive pulmonary disease with acute exacerbation ([facility]) Peripheral vascular disease, unspecified ([facility]) Peripheral vascular disease, unspecified Class 2 severe obesity due to excess calories with serious comorbidity and body mass index (BMI) of38.0 to 38.9 in adult ([facility]) Type 2 diabetes mellitus with other specified complication Male erectile dysfunction, unspecified Type 2 diabetes mellitus with diabetic peripheral angiopathy without gangrene ([facility]) Carpal tunnel syndrome, bilateral upper limbs Carpal tunnel syndrome documented in this encounter [facility] HealthcareEvaluation note* Diagnosis Type 2 diabetes [...] index (BMI) of37.0 to 37.9 in adult ([facility]-HCC) Chronic obstructive pulmonary disease with acute exacerbation (HCC)- Primary Chronic hypoxic respiratory failure (HCC) Class 2 severe obesity due to excess calories with serious comorbidity and body mass index (BMI) of36.0 to 36.9 in adult ([facility]) Essential hypertension, benign Essential hypertension, benign Type [...] index (BMI) of38.0 to 38.9 in adult ([facility]) Type 2 diabetes mellitus with other specified complication (HCC) Male erectile dysfunction, unspecified Type 2 diabetes mellitus with diabetic peripheral angiopathy without gangrene (HCC) Degeneration of lumbar intervertebral disc Degeneration of lumbar or lumbosacral intervertebral disc documented in this encounter [facility] HealthcareEvaluation note* Diagnosis Type 2 diabetes [...] index (BMI) of37.0 to 37.9 in adult ([facility]) Chronic obstructive pulmonary disease with acute exacerbation (HCC)- Primary Chronic hypoxic respiratory failure (HCC) Class 2 severe obesity due to excess calories with serious comorbidity and body mass index (BMI) of36.0 to 36.9 in adult ([facility]) Essential hypertension, benign Essential hypertension, benign Type [...] index (BMI) of38.0 to 38.9 in adult ([facility]) Type 2 diabetes mellitus with other specified [...] index (BMI) of39.0 to 39.9 in adult ([facility]) Encounter for long-term (current) use of medications Encounter for long-term (current) use of other medications Screening PSA (prostate specific antigen) Special screening for malignant neoplasm of prostate Vitamin D insufficiency Dyslipidemia Other and unspecified hyperlipidemia documented in this encounter [facility] HealthcareEvaluation note* Diagnosis Type 2 diabetes [...] gangrene, without long-term current use of insulin ([facility]) Peripheral vascular disease, unspecified (I73.9) [...] hyperglycemia, without long-term current use of insulin ([facility]) Essential hypertension, benign Essential hypertension, benign Class 2 severe obesity due to excess calories with serious comorbidity and body mass index (BMI) of37.0 to 37.9 in adult ([facility]) Chronic obstructive pulmonary disease with acute exacerbation (HCC)- Primary Chronic hypoxic respiratory failure (HCC) Class 2 severe obesity due to excess calories with serious comorbidity and body mass index (BMI) of36.0 to 36.9 in adult ([facility]) Essential hypertension, benign Essential hypertension, benign Type [...] index (BMI) of38.0 to 38.9 in adult ([facility]) Type 2 diabetes mellitus with other specified [...] index (BMI) of39.0 to 39.9 in adult ([facility]) Encounter for long-term (current) use of medications Encounter for long-term (current) use of other medications Screening PSA (prostate specific antigen) Special screening for malignant neoplasm of prostate Vitamin D insufficiency Dyslipidemia Other and unspecified hyperlipidemia Degeneration of lumbar intervertebral disc Degeneration of lumbar or lumbosacral intervertebral disc documented in this encounter [facility] HealthcareEvaluation note* Diagnosis Cardiac pacemaker in situ- Primary Chronotropic incompetence Other specified conduction disorder Sick sinus syndrome (Multi) Sinoatrial node dysfunction Essential hypertension, benign Pacemaker Cardiac pacemaker in situ Sinus bradycardia Other specified cardiac dysrhythmias Former smoker Personal history of tobacco use, presenting hazards to health BMI 38.0-38.9,adult documented in this encounter [facility] Work Phone: Evaluation note* Diagnosis Type [...] index (BMI) of37.0 to 37.9 in adult ([facility]) Chronic obstructive pulmonary disease with acute exacerbation (HCC)- Primary Chronic hypoxic respiratory failure (HCC) Class 2 severe obesity due to excess calories with serious comorbidity and body mass index (BMI) of36.0 to 36.9 in adult ([facility]) Essential hypertension, benign Essential hypertension, benign Type [...] index (BMI) of38.0 to 38.9 in adult ([facility]) Type 2 diabetes mellitus with other specified [...] index (BMI) of39.0 to 39.9 in adult ([facility]) Encounter for long-term (current) use of medications Encounter for long-term (current) use of other medications Screening PSA (prostate specific antigen) Special screening for malignant neoplasm of prostate Vitamin D insufficiency Dyslipidemia Other and unspecified hyperlipidemia Degeneration of lumbar intervertebral disc Degeneration of lumbar or lumbosacral intervertebral disc documented in this encounter [facility] HealthcareEvaluation note* Diagnosis Type 2 diabetes [...] index (BMI) of37.0 to 37.9 in adult ([facility]) Chronic obstructive pulmonary disease with acute exacerbation (HCC)- Primary Chronic hypoxic respiratory failure (HCC) Class 2 severe obesity due to excess calories with serious comorbidity and body mass index (BMI) of36.0 to 36.9 in adult ([facility]) Essential hypertension, benign Essential hypertension, benign Type [...] index (BMI) of38.0 to 38.9 in adult ([facility]) Type 2 diabetes mellitus with other specified [...] index (BMI) of39.0 to 39.9 in adult ([facility]) Encounter for long-term (current) use of medications [...] pacemaker in situ documented in this encounter [facility] Work Phone: History of Present illness Narrative* Patient is here for cardiovascular evaluation for second opinion in regard to documents resting sinus bradycardia. The patient is 56-year-old with history of tobacco use and COPD was evaluated recently due to shortness of breath and his stress test showed questionable inferior wall ischemia. This led to a cardiac evaluation in [place] and its not clear to me whether [...] evaluation * 5 follow-up in 6 [facility] 600 DO Work Phone: History of Present illness Narrative* Patient is here for cardiovascular evaluation for second opinion in regard to documents resting sinus bradycardia. The patient is 56-year-old with history of tobacco use and COPD was evaluated recently due to shortness of breath and his stress test showed questionable inferior wall ischemia. This led to a cardiac evaluation in [place] and its not clear to me whether [...] ischemic evaluation * 5 follow-up in 6 [facility] Work Phone: History of Present illness Narrative* Patient is here for cardiovascular evaluation for second opinion in regard to documents resting sinus bradycardia. The patient is 56-year-old with history of tobacco use and COPD was evaluated recently due to shortness of breath and his stress test showed questionable inferior wall ischemia. This led to a cardiac evaluation in [place] and its not clear to me whether [...] ischemic evaluation * 5 follow-up in 6 [facility] Work Phone: History of Present [...] ischemic evaluation. He underwent cardiac catheterization in [place] which showed no significant obstructive disease * [...] EKG or earlier if the need arise [facility] 600 DO Work Phone: InstructionsNot on filedocumented in this encounter [facility] Narrative* Imaging (Routine) - Pending ReviewSpecialtyDiagnoses / ProceduresReferred By ContactReferred To Contact Cardiology Diagnoses Sinus bradycardia Sick sinus syndrome (Multi) Chronotropic incompetence MRI safe cardiac pacemaker in situ Procedures Cardiac Device Check - In Clinic Naima Wright, [facility] Phone: tel: fax: Referral IDStatusReasonStart DateExpiration DateVisits RequestedVisits [id number] Review Perform Procedure [facility] Work Phone: Reason for visit Narrative* Imaging (Routine) - Pending ReviewSpecialtyDiagnoses / ProceduresReferred By ContactReferred To ContactCardiology Diagnoses Cardiac pacemaker in situ Procedures Cardiac Device Check - Remote Amador Son MD [address] [place] [address] Phone: tel: fax: Referral IDStatusReasonStart DateExpiration DateVisits RequestedVisits [id number] Review Perform Procedure [facility] Work Phone: Reason for visit Narrative* Imaging (Routine) - Pending ReviewSpecialtyDiagnoses / ProceduresReferred By ContactReferred To ContactCardiology Diagnoses Cardiac pacemaker in situ Procedures Cardiac Device Check - In Clinic Amador Son MD [address] [place] [address] Phone: tel: fax: Referral IDStatusReasonStart DateExpiration DateVisits RequestedVisits [id number] Review Perform Procedure [facility] Work Phone: Reason for visit Narrative* Imaging (Routine) - Pending ReviewSpecialtyDiagnoses / ProceduresReferred By ContactReferred To ContactCardiology Diagnoses Cardiac pacemaker in situ Procedures Cardiac Device Check - Remote Amador Son MD [address] [place] [address] Phone: tel: fax: Referral IDStatusReasonStart DateExpiration DateVisits RequestedVisits [id number] Review Perform Procedure [facility] Work Phone: Summary Purpose Family History [...] Preoperative cardiovascular examination Procedures Transthoracic Echo Complete IN ECHO TTHRC R-T 2D W/WOM-MODE COMPL SPEC&COLR D Amador Son MD [address] [address] Referral IDStatusReasonStmays landing DateExpiration DateVisits RequestedVisits [id number] Review Perform Procedure /[id number] / ProceduresReferred By ContactReferred To Contact Diagnoses Sinus bradycardia Establishing care with new doctor, encounter for Procedures ECG 12 lead (Clinic Performed) Amador Son MD [address] [address] Referral IDStatusReasonStart DateExpiration DateVisits RequestedVisits [id number]/15/20243/106106VdtxeniyhVtezkgvhf / Procedures Referred By ContactReferred To ContactRadiology Diagnoses Pacemaker Procedures XR chest 2 views Ana M Kumari, APRON CLEANER-FAMILY REUNIFICATION SPECIALIST [address] [facility], [address] [address] Referral IDStatusReasonStart DateExpiration DateVisits RequestedVisits [id number] Perform Procedure [id number] / ProceduresReferred By ContactReferred To ContactCardiology Diagnoses Pacemaker Procedures Cardiac Device Check - In Clinic Ana M Kumari, APRON CLEANER-FAMILY REUNIFICATION SPECIALIST [address] [facility], [address] [address] Referral IDStatusReasonStart DateExpiration DateVisits RequestedVisits [id number] Review Perform Procedure [id number] / ProceduresReferred By ContactReferred To ContactCardiology Diagnoses Localized swelling on left hand S/P placement of cardiac pacemaker Procedures Vascular US upper extremity venous duplex left Naima Wright, [facility] [address] [facility], [address] [address] Referral IDStatusReasonStart DateExpiration DateVisits RequestedVisits [id number] Perform Procedure /[id number] / ProceduresReferred By ContactReferred To ContactCardiology Diagnoses Cardiac pacemaker in situ Sinoatrial node dysfunction (Multi) Procedures Cardiac Device Check - Remote Amador Son MD [address] [address] Referral IDStatusReasonStart DateExpiration DateVisits RequestedVisits [id number] Review Perform Procedure /[id number] / ProceduresReferred By ContactReferred To ContactCardiology Diagnoses Sinus bradycardia Sick sinus syndrome (Multi) Chronotropic incompetence MRI safe cardiac pacemaker in situ Procedures Cardiac Device Check - In Clinic Naima Wright APRN-FAMILY REUNIFICATION SPECIALIST [address] [address] Referral IDStatusReasonStart DateExpiration DateVisits RequestedVisits [id number] Review Perform Procedure [id number] / ProceduresReferred By ContactReferred To ContactCardiology Diagnoses Sick sinus syndrome (Multi) MRI safe cardiac pacemaker in situ Procedures Follow Up In Cardiology Naima Wright APRN-FAMILY REUNIFICATION SPECIALIST [address] [facility], [address] [address] Amador Son MD [address] [place] [address] Referral IDStatusReasonStart DateExpiration DateVisits RequestedVisits [id number]/3/20247/3/164084DmezkswwyYledkqwwu / Procedures Referred By ContactReferred To Contact Diagnoses Sinus bradycardia Procedures ECG 12 lead (Clinic Performed) Naima Wright APRN-FAMILY REUNIFICATION SPECIALIST [address] [address] Referral IDStatusReasonStart DateExpiration DateVisits RequestedVisits [id number]/3/20247/3/172919XuobszbogTclykhdsx / Procedures Referred By ContactReferred To Contact Diagnoses Claudication ([facility]) Procedures Vas art doppler lwr bilat mult lev/PVR Roc Ramsey DO [address] [place] [address] Referral IDStatusReasonStart DateExpiration DateVisits RequestedVisits [id number] Review Chief Complaint and Reason for Visit [...] section and content) DATE CREATED AUTHOR 03/06/2021 [facility] DATE CREATED AUTHOR AUTHOR'S ORGANIZ ATION 03/12/2021 [facility] DATE CREATED AUTHOR AUTHOR'S ORGANIZ ATION 02/16/2022 [facility] DATE CREATED AUTHOR AUTHOR'S ORGANIZ ATION 07/16/2022 [facility] DATE CREATED AUTHOR AUTHOR'S ORGANIZ ATION 07/16/2022 [facility] DATE CREATED AUTHOR AUTHOR'S ORGANIZ ATION 09/17/2022 [facility] DATE CREATED AUTHOR AUTHOR'S ORGANIZ ATION 04/03/2024 [facility] DATE CREATED AUTHOR AUTHOR'S ORGANIZ ATION 11/16/2024 [facility] DATE CREATED AUTHOR AUTHOR'S ORGANIZ ATION 12/24/2024 [facility] DATE CREATED AUTHOR AUTHOR'S ORGANIZ ATION 02/17/2025 [facility] DATE CREATED AUTHOR AUTHOR'S ORGANIZ ATION 03/03/2025 [facility] DATE CREATED AUTHOR AUTHOR'S ORGANIZ ATION 03/10/2025 [facility] Reason for Visit (unrecogniz ed section and content) ReasonCommentsNew Patient VisitPt is here today as a new patient from Dr. HdzpecialtyDiagnoses / ProceduresReferred By ContactReferred To Contact Cardiology Diagnoses Sinus bradycardia Valentino Ty MD [address] [address] Amador Son MD [address] [facility], [address] [address] Referral IDStatusReasonStart DateExpiration DateVisits RequestedVisits [id number] Specialty Services Required [id number] / ProceduresReferred By ContactReferred To Contact Diagnoses Sinus bradycardia Chronotropic incompetence Sick sinus syndrome (CMS/HCC) Other fatigue Sinus bradycardia [R00.1] Chronotropic incompetence [I45.89] Sick sinus syndrome (CMS/HCC) [I49.5] Other fatigue [R53.83] Procedures IN INS NEW/RPLCMT PRM PM W/TRANSV ELTRD ATRIAL&VENT PPM IMPLANT DUAL Amador Son MD 254 [facility] [address] [place] [address] [facility] [address] [place] [address] Referral IDStatusReason[place]ong[place] DateExpiration DateVisits RequestedVisits [id number] CheckPatient is having swelling in his right handSpecialtyDiagnoses / ProceduresReferred By ContactReferred To Contact Cardiology Diagnoses Localized swelling on left hand S/P placement of cardiac pacemaker Procedures Vascular US upper extremity venous duplex left Yusuf-Naima Rdoriguez E, APRON CLEANER-FAMILY REUNIFICATION SPECIALIST [address] [facility], [facility] [address] [place] [address] Referral IDStatusReasonMong[place] DateExpiration DateVisits RequestedVisits [id number] Perform Procedure /[id number] / ProceduresReferred By ContactReferred To ContactCardiology Diagnoses Cardiac pacemaker in situ Sinoatrial node dysfunction (Multi) Procedures Cardiac Device Check - Remote Amador Son MD [address] [place] [address] [address] [place] [address] Referral IDStatusReasonStart DateExpiration DateVisits RequestedVisits [id number] Review Perform Procedure 1ReasonOnset DateCommentsMed Ldkiha814ReasonOnset Date CommentsMed Qoqlwc1903/30/2024easonCommentsFollow-upPt is here today following up with device checkSpecialtyDiagnoses / ProceduresReferred By ContactReferred To Contact Diagnoses Sinus bradycardia Procedures ECG 12 lead (Clinic Performed) Naima Wright, [facility] [address] [facility], [address] [address] Referral IDStatusReasonStart DateExpiration DateVisits RequestedVisits [id number]/3/20247/438206IueeddchaCuviuuhey / Procedures Referred By ContactReferred To ContactCardiology Diagnoses Pacemaker Procedures Cardiac Device Check - In Clinic Ana M Kumari, [facility] [address] [address] Referral IDStatusReasonStart DateExpiration DateVisits RequestedVisits [id number] Review Perform Procedure [id number] / ProceduresReferred By ContactReferred To ContactRadiology Diagnoses Pacemaker Procedures XR chest 2 views Ana M Kumari, [facility] [address] [facility], [address] [address] Referral IDStatusReasonStart DateExpiration DateVisits RequestedVisits [id number] Perform Procedure 202511ReasonCommentsMedicare Annual Wellness Visit Subsequent WellnessReasonOnset DateCommentsMed Drydsg444ReasonCommentsFollow-up3 m ReasonOnset DateCommentsMed Qgaecb584ReasonCommentsMed RefillReason CommentsUTIReasonOnset DateCommentsMed Xicjoj5404/27/2024[facility] following up after 6 months with device checkSpecialtyDiagnoses / ProceduresReferred By ContactReferred To ContactCardiology Diagnoses Sick sinus syndrome (Multi) MRI safe cardiac pacemaker in situ Procedures Follow Up In Cardiology Naima Wright, APRON CLEANER-FAMILY REUNIFICATION SPECIALIST Phone: tel: fax: Amador Son MD [address] [place] [address] Phone: tel: fax: Referral IDStatusReasonStart DateExpiration DateVisits RequestedVisits [id number]/3/20247/3/365830GnxnnxFfxhk DateCommentsMed Refill 05/28/2024ReasonOnset DateCommentsMed Yzbyes9705/29/2024[facility] f/upReasonJohn [place] [address]rn6gSgnhcrqtpXtlbiezjd / ProceduresReferred By ContactReferred To ContactCardiology Diagnoses Chronotropic incompetence Procedures Follow Up In Cardiology Valentino Ty MD [address] [place] [address] Phone: tel: fax: Valentino Ty MD [address] [place], [place] [address] Phone: tel: fax: Referral IDStatINTEGRIS [facility] – [place]ason[place] DateExpiration DateVisits RequestedVisits [id number]/25/20247/25/995091ClehdzWzjbgunnOpxapt-kvMEMHPYJ INGUINAL HERNIA, RIGHTReasonOnset DateCommentsMed Xrobea9506/26/2024ReasonOnset DateCommentsMed Shfxev1208/22/2024ReasonOnset DateCommentsMed Qqvlqd8809/19/2024 ReasonOnset DateCommentsMed Xpxmwg0010/18/2024ReasonCommentsFollow-ca6PTjr Injury SORE ON RIGHT LEGReasonOnset DateCommentsMed Hwqdur7111/15/2024ReasonComments Follow-upPatient is present for 6 month follow up with device check for Cardiac pacemaker in situ.ReasonOnset DateCommentsMed Oetpts4612/17/2024ReasonComments Follow-upNasal Congestion Care Teams (unrecognized sec tion and content) Team MemberRelationshipSpecialtyStart DateEnd Date Ishmael Simon MD [address] [place] [address] PCP - GeneralFamily Medicine06/29/23Team MemberRelationshipSpecialtyStart DateEnd Date Ishmael Simon MD [address] [place] [address] PCP - Generalmily Medicine06/29/23Team MemberRelationshipSpecialtyStart DateEnd Date Ishmael Simon MD [address] [place] [address] PCP - GeneralFamily Medicine06/29/23Team MemberRelationshipSpecialtyStart DateEnd Date Ishmael Simon MD [address] [place] [address] PCP - GeneralFamily Medicine06/29/23Team MemberRelationshipSpecialtyStart DateEnd Date Ishmael Simon MD PCP - GeneralFamily Medicine06/29/23Team MemberRelationshipSpecialtyStart DateEnd Date Ishmael Simon MD [address] [place] [address] PCP - GeneralFamily Medicine06/29/23 Naima Wright APRON CLEANER-FAMILY REUNIFICATION SPECIALIST [address] [facility], [facility] [address] [place] [address] Nurse PractitionerCardiology11/07/23Team MemberRelationshipSpecialtyStart DateEnd Date Ishmael Simon MD [address] [place] [address] PCP - GeneralFamily Medicine10/10/23 Team Status: Active [...] Date Ishmael Simon MD [address] [place] [address] PCP - GeneralFamily Medicine06/29/23 Naima Wright, APRON CLEANER-FAMILY REUNIFICATION SPECIALIST [address] [facility], [facility] [address] [place] [address] Nurse PractitionerCardiology11/07/23Team MemberRelationshipSpecialtyStart DateEnd Date Ishmael Simon MD [address] [place] [address] PCP - GeneralFamily Medicine06/29/23 Naima Wright APRN-FAMILY REUNIFICATION SPECIALIST [address] [facility], [facility] [place] [address] Nurse PractitionerCardiology11/07/23Team MemberRelationshipSpecialtyStart DateEnd Date Ishmael Simon MD [address] [place] [address] PCP - GeneralFamily Medicine10/10/23Team MemberRelationshipSpecialtyStart DateEnd Date Ishmael Simon MD [address] [place] [address] PCP - GeneralFamily Medicine10/10/23Team MemberRelationshipSpecialtyStart DateEnd Date Ishmael Simon MD [address] [place] [address] PCP - GeneralFamily Medicine10/10/23Team MemberRelationshipSpecialtyStart DateEnd Date Ishmael Simon MD [address] [place] [address] PCP - GeneralFamily Medicine06/29/23 Naima Wright APRON CLEANER-FAMILY REUNIFICATION SPECIALIST [address] [facility], [facility] [address] [place] [address] Nurse PractitionerCardiology11/07/23Team MemberRelationshipSpecialtyStart DateEnd Date Ishmael Simon MD [address] [place] [address] PCP - GeneralFamily Medicine10/10/23Team MemberRelationshipSpecialtyStart DateEnd Date Ishmael Simon MD [address] [place] [address] PCP - GeneralFamily Medicine10/10/23Team MemberRelationshipSpecialtyStart DateEnd Date Ishmael Simon MD [address] [place] [address] PCP - GeneralFamily Medicine10/10/23Team MemberRelationshipSpecialtyStart DateEnd Date Ishmael Simon MD [address] [place] [address] PCP - GeneralFamily Medicine10/10/23Team MemberRelationshipSpecialtyStart DateEnd Date Ishmael Simon MD [address] [place] [address] PCP - GeneralFamily Medicine10/10/23Team MemberRelationshipSpecialtyStart DateEnd Date Ishmael Simon MD [address] [place] [address] PCP - GeneralFamily Medicine10/10/23Team MemberRelationshipSpecialtyStart DateEnd Date Ishmael Simon MD [address] [place] [address] PCP - GeneralFamily Medicine10/10/23Team MemberRelationshipSpecialtyStart DateEnd Date Ishmael Simon MD [address] [place] [address] PCP - GeneralFamily Medicine10/10/23Team MemberRelationshipSpecialtyStart DateEnd Date Ishmael Simon MD [address] [place] [address] PCP - GeneralFamily Medicine06/29/23 Amador Son MD [address] [facility], [facility] [address] [place] [address] CardiologistElectrophysiology05/17/24Team MemberRelationshipSpecialtyStart DateEnd Date Ishmael Simon MD [address] [place] [address] PCP - Generalmily Medicine06/29/23 Amador Son MD [address] [facility], [facility] [address] [place] [address] CardiologistElectrophysiology05/17/24Team MemberRelationshipSpecialtyStart DateEnd Date Ishmael Simon MD [address] [place] [address] PCP - GeneralFamily Medicine10/10/23Team MemberRelationshipSpecialtyStart DateEnd Date Ishmael Simon MD [address] [place] [address] PCP - GeneralFamily Medicine10/10/23Team MemberRelationshipSpecialtyStart DateEnd Date Ishmael Simon MD [address] [place] [address] PCP - GeneralFamily Medicine10/10/23Team MemberRelationshipSpecialtyStart DateEnd Date Ishmael Simon MD [address] [place] [address] PCP - GeneralFamily Medicine10/10/23Team MemberRelationshipSpecialtyStart DateEnd Date Ishmael Simon MD [address] [place] [address] PCP - GeneralFamily Medicine06/29/23 Amador Son MD [address] [facility] Office Bldg, [facility] [place] [address] CardiologistElectrophysiology05/17/24Team MemberRelationshipSpecialtyStart DateEnd Date Ishmael Simon MD [address] [place] [address] PCP - GeneralFamily Medicine10/10/23Team MemberRelationshipSpecialtyStart DateEnd Date Ishmael Simon MD [address] [place] [address] PCP - GeneralFamily Medicine08/16/19Team MemberRelationshipSpecialtyStart DateEnd Date Ishmael Simon MD [address] [place] [address] PCP - GeneralFamily Medicine08/16/19Team MemberRelationshipSpecialtyStart DateEnd Date Ishmael Simon MD PCP - GeneralFamily Medicine08/16/19Team MemberRelationshipSpecialtyStart DateEnd Date Ishmael Simon MD [address] [place] [address] PCP - GeneralFamily Medicine10/10/23Team MemberRelationshipSpecialtyStart DateEnd Date Ishmael Simon MD [address] [place] [address] PCP - GeneralFamily Medicine10/10/23Team MemberRelationshipSpecialtyStart DateEnd Date Ishmael Simon MD [address] [place] [address] PCP - GeneralFamily Medicine10/10/23Team MemberRelationshipSpecialtyStart DateEnd Date Ishmael Simon MD [address] [place] [address] PCP - GeneralFamily Medicine10/10/23Team MemberRelationshipSpecialtyStart DateEnd Date Ishmael Simon MD [address] [place] [address] PCP - GeneralFamily Medicine06/29/23 Amador Son MD [address] [facility] Bldg, [place] [place] [address] CardiologistElectrophysiology05/17/24Team MemberRelationshipSpecialtyStart DateEnd Date Ishmael Simon MD [address] [place] [address] PCP - GeneralFamily Medicine10/10/23Team MemberRelationshipSpecialtyStart DateEnd Date Ishmael Simon MD [address] [place] [address] PCP - GeneralFamily Medicine10/10/23Team MemberRelationshipSpecialtyStart DateEnd Date Ishmael Simon MD [address] [place] [address] PCP - GeneralFamily Medicine10/10/23Team MemberRelationshipSpecialtyStart DateEnd Date Ishmael Simon MD [address] [place] [address] PCP - GeneralFamily Medicine10/10/23Team MemberRelationshipSpecialtyStart DateEnd Date Ishmael Simon MD [address] [place] [address] PCP - GeneralFamily Medicine06/29/23 Amador Son MD [address] [facility] Bldg, [place] [place] [address] CardiologistElectrophysiology05/17/24Team MemberRelationshipSpecialtyStart DateEnd Date Ishmael Simon MD [address] [place] [address] PCP - GeneralFamily Medicine10/10/23Team MemberRelationshipSpecialtyStart DateEnd Date Ishmael Simon MD [address] [place] [address] PCP - GeneralFamily Medicine10/10/23Team MemberRelationshipSpecialtyStart DateEnd Date Ishmael Simon MD [address] [place] [address] PCP - GeneralFamily Medicine06/29/23 Amador Son MD [address] [facility] Office Bl, [address], [place] [address] CardiologistElectrophysiology05/17/24Team MemberRelationshipSpecialtyStart DateEnd Date Ishmael Simon MD PCP - GeneralFamily Medicine10/10/23 Ishmael Simon MD [address] [place] [address] PCP - Human06/09/23Team MemberRelationshipSpecialtyStart DateEnd Date Ishmael Simon MD PCP - GeneralFamily Mpltjnsx44/5/ Ishmael Simon MD PCP - GeneralFamily Medicine10/10/23 Ishmael Simon MD [address] [place] [address] PCP - [employer]2/06/01 Scheduled Active and Recently [...] Continuous, Starting on Tue08/05/23 at 1230, Preprocedure, calliope player to EP lab * 1221 (New Bag - Provider: Lexi Aariza RN) * 1659 (Due: Stopped - Provider: [...] BE BASED ON THE PRIMARY CLINICAL RECORDS. [employer] [facility]. provides no warranty or guarantee of the accuracy or completeness of information in this document.
[2025-03-25 08:41] VITALS: BP 115/77; PULSE 65; TEMP 36.9; O2SAT 95
[2025-03-25] MEDS: CEFAZOLIN SODIUM/DEXTROSE,ISO 1 GM/50 ML PREMIX IV (09:13)
--- NOTE | 2025-03-25 09:46 | P.ON_ITS ---
Date of procedure: 03/25/25 Pre-op diagnosis: Pain due to lumbar stenosis with neurogenic claudication Post-op diagnosis: same as pre-op Procedure: Procedure Performed by: Jong Reyes M.D. Procedure: Placement of [employer] 16 contact neuroelectrode trial leads (x two) under fluoroscopic guidance *Needle [employer] Director at the interspace below T12/L1 *Final Lead Placement Level at the top of the vertebral body T8 Anesthesia: Monitored Anesthesia Care is medically necessary for the procedure due to the procedure requiring the patient to remain motionless for a prolonged period of time. Procedure: Risks, Benefits, Alternatives were reviewed and informed consent was obtained in the preop holding area. All questions were answered appropriately. The patient was brought to the operating room and placed in the prone position with padding under all bony prominences. A pre-procedure time out was performed specifying pt. name, nature site and side of surgery, and allergies. Anesthesia provided appropriate sedation as the skin over the thoracic and lumbar spine were prepped with duraprep and draped in the usual sterile fashion. Under fluoroscopic guidance, the above noted interspace was identified as the site for epidural needle entry. The skin and subcutaneous tissues were anesthetized approximately 1 level inferior to this point with a mixture of 1% lidocaine and 0.25% bupivacaine. Two 14 gauge tuouy needles were inserted to the superior aspect of the lamina just inferior to the target interspace. Then, using loss of resistance technique as well as fluoroscopic guidance, the epidural space was entered. Two [employer] Trial Stimulator Leads were then advanced under intermittent fluoroscopic guidance until the distal tip of the electrode was observed to be in position at the final position noted above. After appropriate electrode placement was achieved, stimulation was tested intraoperatively with multiple lead configurations until concordant paresthesias were obtained covering the areas of the patient's pain. At this point, the needles and stylets were removed carefully and the leads were secured to the skin using steri- strips. The region was covered using a sterile tegaderm bandage. The patient was escorted to the recovery area in stable condition having tolerated the procedure well. Anesthesia: MAC Surgeon: Jong Reyes Pathology: none sent Condition: stable Disposition: no change
[2025-03-25 09:47] VITALS: BP 125/66; PULSE 63; TEMP 36.6; O2SAT 95
[2025-03-25 09:56] VITALS: BP 127/64; PULSE 60; TEMP 36.6; O2SAT 95
== END 2025-03-25 10:30 | disposition home or self-care (01) ==
LOC: SURGOUT 08:23
PROVIDERS: PCP Family Medicine; Visit Provider Anesthesiology
DX: M48.062 Spinal stenosis, lumbar region with neurogenic claudication (principal); J44.9 Chronic obstructive pulmonary disease, unspecified; Z95.0 Presence of cardiac pacemaker; I50.9 Heart failure, unspecified
CPT/HCPCS: 36415; 63650; C1778; J0690; J2003; J2250; J2704; J3010

== ENCOUNTER 2025-04-17 09:43 | Outpatient (OUT) | payer MEDICARE, SELFPAY ==
--- OUTSIDE RECORDS SUMMARY | 2025-04-17 09:54 | XMS_ITS | CCD ---
Author Organization [facility] Care Team Providers Care Cloth Framer Name Role Phone SIMONE RUIZ Admitting Unavailable SIMONE RUIZ Attending Unavailable ISHMAEL SIMON Referring Unavailable ISHMAEL SIMON Primary Care Unavailable JEY MUNGUIA Attending Unavailable JEY MUNGUIA R Surgeon Unavailable [place] Procedure Practitioner Unavailab ISHMAEL [place] Primary Care [...] Primary Care Unavailable IBARRA ., DR RICKY Btaeman Attending Unavailable IBARRA ., DR RICKY Bateman [...] HOANG Consulting Unavailable IBARRA ., DR RICKY Baetman Consulting Unavailable IBARRA ., DR RICKY Bateman [...] LANE, Ishmael [place] Primary Care Provider Goldberg-[place] GUS[employer] 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, Naima E Unavailable Ishmael Simon MD Primary Care Provider Ishmael Simon MD Primary Care Provider [phone] Rubio METEOROLOGY TEACHER-C, Danielle Priest Attending Provider Danielle Bergeron Attending Unavailable Ishmael Simon Primary Care Unavailable Danielle Bergeron Admitting Unavailable Danielle Bergeron Attending Unavailable Ishmael Simon Primary Care Unavailable Danielle Bergeron Admitting Unavailable Amador Son MD Unavailable Alfred LANE, Ishmael Primary Care Provider Ishmael Simon MD Primary Care Provider Amador Son MD Unavailable [phone], Jong Villalobos Attending Unavailable [...] Primary Care Provider Amador Son MD Unavailable Ishmael Simon MD Primary Care [...] (Original)acetaminophen 325 mg oral tablet (1 source)Start: 56-56-3146jgbz 1 tablet by mouth every four hours as needed acetaminophen (Tylenol) tablet 650 mgacetaminophen 325 mg / oxyCODONE hydrochloride 7.5 mg oral tablet (20 sources)Opioid AgonistStart: 12-01-2023 End: 19-38-8755yxyc 1 tablet by mouth four times daily as needed for pain oxyCODONE-acetaminophen (Percocet) 7.5-325 MG tablet Indications: Degeneration of lumbar intervertebral disc Take 1 tablet by mouth 4 (four) times a day as needed for severe pain or moderate pain 120tablet 12/17/2024 01/16/2025 Active Start: 28-16-8902ayqc 1 tablet by mouth four times daily as neededoxyCODONE- Acetaminophen 7.5-325 MG Oral Tablet TAKE 1 TABLET BY MOUTH FOUR TIMES A DAY NEEDED Quantity: 120 Refills: 0 Ordered: 01-Apr-2021 DO Start : 30-Mar-2021 ActiveStart: 46-30-4564pucMGKPKU-acetaminophen (PERCOCET) 7.5-325 mg per tablet 08/16/2019 ActiveStart: 73-12-7102skvx 1 tablet by mouth every six hours as neededoxyCODONE-acetaminophen (Percocet) 7.5-325 mg tablet Take 1 tablet by mouth every 6 hours if neededfor severe pain (7 - 10). 03/30/2021 ActiveStart: 06-19-2018 End: 90-09-3286aolc 1 tablet by mouth every four to six hours as needed for pain Oxycodone-Acetaminophen 5-325 mg Tablet Discontinued 1 TAB PO EVERY 4-6 HOURS as needed for Pain June 19, 2018 12:00am June 22, 2018 9:06fuyvw110473 200 actuat albuterol 0.09 mg/actuat metered dose inhaler (20 sources)beta2-Adrenergic AgonistStart: 06-06-2024 End: 22-77-0372duye 2 puff(s) by inhalation every four hours for wheezing albuterol HFA 90 mcg/act inhaler Indications: Chronic obstructive pulmonary disease with acute exacerbation (HCC) Inhale 2 puffs every 4 (four) hours if needed for wheezing 18 g 3 06/06/2024 ActiveStart: 06-23-2018 End: 45-97-0132Gmabhxfse Sulfate 90 mcg/actuation aerosol powdr breath activated [...] Inhibitor, Nonsteroidal Anti-inflammatory Drug Start: 12-01-2023 End: 66-58-9587vaai 1 tablet by mouth once dailyaspirin 81 mg EC tablet Indications: Chronotropic incompetence Take 1 tablet (81 mg) by mouth once d aily. 12/01/2023 11/30/2024 Activebaclofen 10 mg oral tablet (20 sources)gamma-Aminobutyric Acid-ergic AgonistStart: 73-80-1845kcgf 0.5-1 tablets by mouth twice dailybaclofen (Lioresal) 10 MG tablet TAKE 1/2 TO 1 TABLET BY MOUTH TWICE A DAY 01/27/2023 Activetake 1 tablet by mouth three times dailybaclofen (LIORESAL) 10 mg tablet Take 1 tablet (10 mg total) by mouth 3 (three) times a day. Activecephalexin 500 mg oral capsule (14 sources)Cephalosporin AntibacterialStart: 19-46-3412mfqlzieimu (Keflex) 500 MG capsule 07/30/2024 Activecetirizine hydrochloride 10 mg oral tablet (20 sources)Histamine-1 Receptor AntagonistStart: 61-99-1683mfvn 1 tablet by mouth once dailycetirizine (ZyrTEC) 10 MG tablet Indications: Allergic rhinitis due to pollen TAKE 1 TABLET BY MOUTH EVERY DAY 90 tablet 3 09/05/2024 Active cholecalciferol 0.05 mg oral tablet (7 sources)Vitamin DStart: 07-23-2019 End: 11-93-1424bpas 1 tablet by mouth once dailycholecalciferol, vitamin D3, 2,000 units tablet Take 1 tablet by mouth daily. 07/23/2019 12/07/2023 DiscontinuedStart: 90-68-6472eumj 1 tablet by mouth before mealtime Cholecalciferol (Vitamin D3) 50 mcg (2,000 unit) tablet Active 50 MCG PO Before meals July 06, 2019 12:00amtake 1 capsule by mouth once dailyVitamin D 50 MCG (2000 UT) Oral Capsule TAKE 1 CAPSULE Daily Quantity: 90 Refills: 0 Ordered: 28-Jan-2022 DO Activeciprofloxacin 500 mg oral tablet (3 sources)Quinolone AntimicrobialStart: 02-06-2024 End: 77-58-3542cvnm 1 tablet by mouth in the morningciprofloxacin (Cipro) 500 MG tablet Indications: Acute prostatitis Take 1 tablet (500 mg) by mouth in the morning and 1 tablet (500 mg) before bedtime. Do all this for 14 days. 28 tablet 02/06/2024 02/20/2024 Active0.5 ml dulaglutide 1.5 mg/ml auto-injector (7 sources)GLP-1 Receptor AgonistStart: 04-24-2024 End: 28-24-0788eaycbx 0.75 mg by subcutaneous injection every weekDulaglutide (Trulicity) 0.75 MG/0.5ML solution auto-injector Indications: Type 2 diabetes mellitus with hyperglycemia, without long-term current use of insulin ([facility]) Inject 0.75 mg under the skin1 (one) time per week 2 mL 5 04/24/2024 06/06/2024 Discontinued2 ml dupilumab 150 mg/ml auto-injector (1 source)Interleukin-4 Receptor alpha AntagonistStart: 06-17-2022 End: 55-80-0205QAIIFKNE PEN 300 mg/2 mL pen injector SUBQ injection pen Inject under the skin. 1 Injection every 2weeks. 06/17/2022 12/07/2023 Qxjusmdgjgzz84 actuat fluticasone furoate 0.1 mg/actuat / umeclidinium 0.0625 mg/actuat / vilanterol 0.025 mg/actuat dry powder inhaler (20 sources)Anticholinergic, Corticosteroid, beta2-Adrenergic AgonistStart: 90-12-8547TSIWDLI ELLIPTA 100-62.5-25 mcg blister with device 08/17/2019 Active Start: 99-99-2159Rfkrkpciaic-Umeclidin-Vilanter (Trelegy Ellipta) 100-62.5-25 mcg blister with device Active 1 MCG INHALATION As Directed July 06, 2019 12:00amtake 1 dose by inhalation in the gdvjpdxVycmtubawji-Mpalceqpg-Qwjtdy (Trelegy Ellipta) 100-62.5-25 MCG/ACT aerosol powder Inhale 1 Dose in the morning. Bmgnlsequwcnlsyiz-iulgwymvm-zrnbjiuc (TRELEGY-ELLIPTA) 100-62.5-25 mcg blister with device Inhale 1 puff.Use as directed Activefurosemide 40 mg oral tablet (20 sources)Loop DiureticStart: 79-79-0587lbeg 1 tablet by mouth at bedtime furosemide (Lasix) 40 MG tablet Indications: Chronic diastolic heart failure (HCC) TAKE 1 TABLET (40 MG) BY MOUTH IN THE MORNING AND AT BEDTIME 180 tablet 3 06/18/2024 ActiveStart: 06-19-2018 End: 70-41-9408rxmx 1 tablet by mouth once dailyFurosemide 40 mg Tablet Discontinued 40 MG PO Daily June 19, 2018 12:00am June 23, 2018 12:19pmgabapentin 300 mg oral capsule (20 sources)Anti-epileptic AgentStart: 07-06-2019 End: 08-42-6825syib 1 capsule by mouth once daily at [...] oral tablet (2 sources)Quinolone AntimicrobialStart: 07-23-2024 End: 89-56-6407ecpv 1 tablet by mouth once dailylevoFLOXacin (Levaquin) 750 MG tablet Indications: Chronic obstructive pulmonary disease with acuteexacerbation (CMS/HCC) Take 1 tablet (750 mg) by mouth Daily for 7 days 7 tablet 07/23/2024 07/30/2024 Activemontelukast 10 mg oral tablet (20 sources)Leukotriene Receptor AntagonistStart: 20-04-1304oqsnkfybcpr (SINGULAIR) 10 mg tablet 08/12/2019 Activenabumetone 500 mg oral tablet (20 sources)Nonsteroidal Anti-inflammatory DrugStart: 07-06-2019 End: 30-08-4038lskf 1 tablet by mouth twice dailynabumetone (Relafen) [...] release oral capsule (20 sources)Proton Pump InhibitorStart: 61-37-9099vrla 1 capsule by mouth once dailyomeprazole (PriLOSEC) [address] capsule Indications: Alcoholic gastritis without bleeding , Alcoholic gastritis TAKE 1 CAPSULE BY MOUTH EVERY DAY 90 capsule 1 11/16/2024 ActiveStart: 91-90-2139zjmx 1 tablet by mouth once daily Omeprazole 20 mg Tablet,Delayed Release (Dr/Ec) Active 20 MG PO Daily June 19, 2018 12:00am2 ml ondansetron 2 mg/ml injection (1 source)Serotonin-3 Receptor AntagonistStart: 76-58-2992zgrn 4 mg intravenously every eight hours as neededondansetron (Zofran) injection 4 mg oxygen (O2) gas therapy (18 sources)oxygen (O2) gas therapy 2l at bedtime Activeoxygen (O2) gas therapy 2l at bedtime 0 Activeperflutren lipid microspheres (Definity) injection 0.5-10 mL of dilution (1 source)Start: 69-43-4515sxqoriykff lipid microspheres (Definity) injection 0.5-10 mL of dilutionpredniSONE 50 mg oral tablet (6 sources)Start: 07-23-2024 End: 83-84-6616swiz 1 tablet by mouth once dailypredniSONE (Deltasone) 50 MG tablet Indications: Chronic obstructive pulmonary disease with acute ex acerbation (CMS/HCC) Take 1 tablet (50 mg) by mouth Daily for 6 days 6 tablet 07/23/2024 07/29/2024tiveStart: 01-13-2024 End: 09-17-3152aqoo 1 tablet by mouth once dailypredniSONE (Deltasone) 50 MG tablet Indications: Chronic obstructive pulmonary disease, unspecifiedCOPD type (CMS/HCC) Take 1 tablet (50 mg) by mouth Daily for 6 days 6 tablet 01/13/2024 01/19/2024 ActiveStart: 97-14-7030Ckopmttnbv 10 mg Tablet Active 60 MG PO Daily July 06, 2019 12:00am administer with food or milkpregabalin 100 mg oral capsule (10 sources)Start: 06-26-2024 End: 54-98-1703newr 1 capsule by mouth in the morningpregabalin (Lyrica) 100 MG capsule Take 100 mg by mouth in the morning and 100 mg before bedtime. 10/23/2024 Discontinuedrosuvastatin calcium 10 mg oral tablet (20 sources)HMG-CoA Reductase InhibitorStart: 06-13-2024 End: 17-35-1470oaev 1 tablet by mouth once dailyrosuvastatin (Crestor) 10 mg tablet Indications: Peripheral vascular disease, unspecified , Hyperlipidemia, unspecified hyperlipidemia type Take 1 tablet (10 mg) by mouth once daily. 90 tablet 3 06/13/2024 06/13/2025 Active0.25 mg, 0.5 mg dose 1.5 ml semaglutide 1.34 mg/ml pen injector (3 sources)Start: 52-30-5458nkqygergegd (Ozempic, 0.25 or 0.5 MG/DOSE,) 2 MG/1.5ML [...] mg weekly 1 each 5 04/24/2024 ActiveStart: 02-10-1042kbjxiqyqwkf (Ozempic, 0.25 or 0.5 MG/DOSE,) 2 MG/1.5ML solution pen-injector Indications: Type 2 diabetes mellitus with hyperglycemia, without long-term current use of insulin (CMS/HCC) 0.25 mg SC weekly x 4 weeks, then 0.5 mg weekly 1 each 5 04/24/2024 Activespironolactone 100 mg oral tablet (20 sources)Aldosterone AntagonistStart: 96-29-3447wefg 1 tablet by mouth once dailyspironolactone (Aldactone) 100 MG tablet Indications: Essential hypertension, benign TAKE 1 TABLET BY MOUTH EVERY DAY 90 tablet 5 04/09/2024 ActiveStart: 83-90-3614tvzh 1 tablet by mouth in the morningspironolactone (ALDACTONE) 50 mg tablet Take 1 tablet (50 mg total) by mouth in the morning. 08/12/2019 ActiveStart: 64-29-4981Fzlkacwyuyygbg (Aldactone) 50 mg Tablet Active 25 MG PO Daily 0 June 23, 2018 12:18pmStart: 06-19-2018 End: 37-05-2129swkf 1 tablet by mouth once dailySpironolactone (Aldactone) 50 mg Tablet Discontinued 50 MG PO Daily June 19, 2018 12:00am June 23, 2018 12:19pmtopiramate 50 mg oral tablet (13 sources)Start: 20-23-0036cbfr 1 tablet by mouth in the morningtopiramate 50 MG tablet Indications: Degeneration of intervertebral disc of lumbar region with discogenic back pain and lower extremity pain Take 50 mg by mouth in the morning and 50 mg before bedtime. 60 tablet 5 12/24/2024 ActiveStart: 93-79-1899zykt 1 tablet by mouth in the morningtopiramate 50 MG tablet Indications: Degeneration of intervertebral disc of lumbar region with discogenic back pain and lower extremity pain Take 50 mg by mouth in the morning and 50 mg before bedtime. 60 tablet 5 12/24/2024 ActiveStart: 10-23-2024 End: 26-04-9056aiyk 1 tablet by mouth in the morningtopiramate (Topamax) 25 MG tablet Indications: Degeneration of intervertebral disc of lumbar regionwith discogenic back pain and lower extremity pain Take 1 tablet (25 mg) by mouth in the morning and 1 tablet (25 mg) before bedtime. 60 tablet 5 10/23/2024 12/24/2024 Discontinued (Reorder)traMADol hydrochloride 50 mg oral tablet (1 source)Opioid AgonistStart: 52-38-1572tliw 1 tablet by mouth every six hours as neededtraMADol (Ultram) tablet 50 mg Completed/Discontinued Medications MedicationDrug Class(es)DatesSig (Normalized)Sig (Original)ceFAZolin 1000 mg injection (1 source)Cephalosporin AntibacterialStart: 08-05-2023 End: 38-10-4399ulUOEtdnh in dextrose (iso-os) (Ancef) IVPB 1 gchlorhexidine gluconate 40 mg/ml medicated liquid soap (1 source)Start: 08-05-2023 End: 69-85-6169lieccricyibaf (Hibiclens) 4 % liquidStart: 08-05-2023 End: 87-88-8701qwgqpkivnwsgw (Hibiclens) 4 % liquidcyclobenzaprine hydrochloride 10 mg oral tablet (2 sources)Muscle RelaxantStart: 09-15-2018 End: 45-50-0955vjom 1 tablet by mouth three times dailyCyclobenzaprine 10 mg tablet Discontinued 10 MG PO Three times daily 9 September 14, 2018 11:00pm 2019 12:12amDupixent SOPN (1 source)Dupixent SOPN USE DIRECTED Quantity: 0 Refills: 0 Ordered: 14-Jul-2022 DO Activelisinopril 20 mg oral tablet (2 sources)Angiotensin Converting Enzyme InhibitorStart: 06-19-2018 End: 92-68-8419foja 1 tablet by mouth once dailyLisinopril 20 mg Tablet Discontinued 20 MG PO Daily June 19, 2018 12:00am June 23, 2018 12:17pmmethocarbamol 750 mg oral tablet (2 sources)Muscle RelaxantStart: 06-19-2018 End: 28-59-1424pkes 1 tablet by mouth twice daily as needed for pain Methocarbamol (Robaxin-750) 750 mg Tablet Discontinued 750 MG PO Twice daily as needed for Pain June 19, 2018 12:00am July 06, 2019 12:10am methylPREDNISolone 16 mg oral tablet (4 sources)CorticosteroidStart: 06-23-2018 End: 37-50-8098gvyz 2 tablets by mouth once daily in the morning Methylprednisolone (Medrol) 16 mg tablet Discontinued 32 MG PO Every morning July 06, 2019 12:09am July 06, 2019 12:09ammupirocin 0.02 mg/mg topical ointment (1 source)RNA Synthetase Inhibitor AntibacterialStart: 08-05-2023 End: 38-41-8067qvkwzzetf (Bactroban) 2 % ointment 1 ApplicationStart: 08-05-2023 End: 49-46-4808hozievozi (Bactroban) 2 % ointment 1 ApplicationOxygen (5 sources)Oxygen 2l at bedtime Quantity: 0 Refills: 0 Ordered: 28-Jan-2022 DO Ebggey1360 ml sodium chloride 9 mg/ml injection (2 sources)Start: 08-05-2023 End: 05-27-6942pqpvmd chloride 0.9% infusiontamsulosin hydrochloride 0.4 mg oral capsule (2 sources)alpha-Adrenergic BlockerStart: 06-19-2018 End: 56-99-7040javu 1 capsule by mouth once dailyTamsulosin (Flomax) 0.4 mg Capsule Discontinued 0.4 MG PO Daily June 19, 2018 12:00am July 06, 2019 12:08amtiotropium 0.018 mg inhalation powder (2 sources)AnticholinergicStart: 06-23-2018 End: 10-72-8444bzuz 1 capsule by inhalation once dailyTiotropium Balm (Spiriva With Handihaler) 18 mcg capsule, w/inhalation [...] pain; Translations: [Right lower quadrant pain] Onset: 41-35-1069JszbhplhFbcrsnq-related disorders (20 sources)Alcoholic gastritis; Translations: [Alcoholic gastritis without bleeding]Onset: 063858-01-0381YeiiywnXsiybou dysrhythmias (20 sources)Sick sinus syndrome; Translations: [Sick sinus syndrome]Onset: 816436-42-1545VqxegacFibqxcm obstructive pulmonary disease and bronchiectasis (20 sources)Chronic obstructive lung disease; Translations: [Chronic airway obstruction, not elsewhere classified]Onset: 715733-47-6666LdrvgebAvomtko on above:Problem List clean-up per request of Phys. EHR CmteConduction disorders (20 sources)Chronotropic incompetence; Translations: [Other specified conduction disorders]Onset: 301153-23-1267CbejdpnRbmbtzalqn heart failure; nonhypertensive (20 sources)Chronic diastolic heart failure; Translations: [Chronic diastolic (congestive) heart failure]Onset: 04-13-2023 Resolved: 908057-63-2988DwatdxtApfaziel atherosclerosis and other heart disease (20 sources)Coronary arteriosclerosis; Translations: [Atherosclerotic heart disease of [place] coronary artery without angina pectoris]Onset: 06-13-2024 71-37-3764ArxsumhDealoxjn mellitus with complications (20 sources)Type 2 diabetes mellitus with hyperglycemia; Translations: [Type 2 diabetes mellitus]Onset: 888592-85-1059PxbfbxsKzxtqycds of lipid metabolism (20 sources)Hyperlipidemia, unspecified; Translations: [Dyslipidemia]Onset: 229142-79-8989EovdnvaXpeoeiayb hypertension (20 sources)Essential (primary) hypertension; Translations: [Benign essential hypertension]Onset: 094248-25-8096YxywxdsRztqhed on above:Problem List clean-up per request of Phys. EHR CmteFluid and electrolyte disorders (4 sources)Hyponatremia; Translations: [Hypo-osmolality and hyponatremia] 56-54-9893XzdaioszNgrdynb on above:Problem List clean-up per request of Phys. EHR CmteHyperplasia of prostate (20 sources)Benign prostatic hypertrophy with outflow obstruction; Translations: [Benign prostatic hyperplasia with lower urinary tract symptoms]Onset: 453482-34-8905IrccovcOtfluetpzoz chest pain (2 sources)Atypical chest pain; Translations: [Other chest pain]04-20-2023 EpisodicComment on above:Problem List clean-up per request of Phys. EHR Cmte Nutritional deficiencies (20 sources)Vitamin D deficiency, unspecified; Translations: [Vitamin D deficiency]Onset: 66-02-5042CbyqabxWiewsxikvnsffh (20 sources)Osteoarthritis of right hip joint; Translations: [Unilateral primary osteoarthritis, right hip]Onset: 720495-45-7166XhluhgnNxjjm connective tissue disease (4 sources)Neuralgia and neuritis, unspecified; Translations: [NEURALGIA AND NEURITIS UNSPECIFIED]Onset: 48-82-6758FgesiwxjHcozo hereditary and degenerative nervous system conditions (1 source)Dystonia, unspecified; Translations: [DYSTONIA UNSPECIFIED]Onset: 74-23-3466VtyjyczViylu inflammatory condition of skin (20 sources)Plaque psoriasis; Translations: [Psoriasis vulgaris]Onset: 410610-73-6323VitcdniOfkzc lower respiratory disease (1 source)Dyspnea, unspecified; Translations: [Dyspnea, unspecified]Onset: 75-88-0107StwtxbigDhrua lower respiratory disease (2 sources)Rib pain; Translations: [Pleurodynia]45-94-6607YcawevhaRnfsiuj on above:Problem List clean-up per request of Phys. EHR CmteOther lower respiratory disease (2 sources)Dyspnea on exertion; Translations: [Other forms of dyspnea]11-09-2023 EpisodicOther male genital disorders (20 sources)Secondary erectile dysfunction; Translations: [Male erectile dysfunction, unspecified]Onset: 911516-23-4425WcccoyaNnneo male genital disorders (2 sources)Male erectile dysfunction, unspecified; Translations: [Impotence of organic origin]72-89-1852EvvnlhjUcjyx nervous system disorders (4 sources)Other specified mononeuropathies; Translations: [OTHER SPECIFIED MONONEUROPATHIES]Onset: 85-45-9063KcdeecaXyyfc nervous system disorders (1 source)Other chronic pain; Translations: [OTHER CHRONIC PAIN]Onset: 54-30-7005ZtnltzzTgvpk nervous system disorders (20 sources)Ulnar neuropathy of left arm; Translations: [Lesion of ulnar nerve, left upper limb]Onset: 928406-35-1453XnvrppeWkzcg nervous system disorders (20 sources)Carpal tunnel syndrome of left wrist; Translations: [Carpal tunnel syndrome, left upper limb]Onset: 096208-48-5574FbtqyxnPwpso nervous system disorders (1 source)Bilateral carpal tunnel syndrome; Translations: [Carpal tunnel syndrome, bilateral upper limbs]09-61-6157ZvstowcFawts nervous system disorders (1 source)Carpal tunnel syndrome; Translations: [Carpal tunnel syndrome, unspecified upper limb]14-71-9603RudaxxqJgkew nutritional; endocrine; and metabolic disorders (5 sources)Obesity; Translations: [Obesity, unspecified]ChronicOther nutritional; endocrine; and metabolic disorders (1 source)Obesity, unspecified; Translations: [OBESITY UNSPECIFIED]Onset: 24-61-6174ZfslwaaLzxfc nutritional; endocrine; and metabolic disorders (20 sources)Body mass index 30+ - obesity; Translations: [Body mass index (BMI) 34.0-34.9, adult]Onset: 247740-20-2454XcqjtuvJvzby nutritional; endocrine; and metabolic disorders (20 sources)Severe obesity; Translations: [Class 2 severe obesity due to excess calories with serious comorbidity and body mass index (BMI) of 37.0 to 37.9 in adult ([facility])]Onset: 617604-68-3532YkswurjEqjva nutritional; endocrine; and metabolic disorders (2 sources)Body mass index (BMI) 38.0-38.9, adult; Translations: [Body mass index (BMI) 38.0-38.9, adult]Onset: 86-85-7109XmedzgjSpmtu nutritional; endocrine; and metabolic disorders (2 sources)Body mass index (BMI) 37.0-37.9, adult; Translations: [Body mass index (BMI) 37.0-37.9, adult]Onset: 99-88-1295XxzcogoXpkar skin disorders (2 sources)Localized swelling of left hand; Translations: [Localized swelling, mass and lump, left upper limb]93-32-7385SyjudaylBaofcteomc and visceral atherosclerosis (20 sources)Peripheral vascular disease; Translations: [Peripheral vascular disease, unspecified]Onset: 366910-53-9516CivqzejVcvahbkm codes; unclassified (20 sources)Obstructive sleep apnea syndrome; Translations: [Obstructive sleep apnea (adult) (pediatric)]Onset: 014221-69-7715VvojmsoEwnsccytjvr failure; insufficiency; arrest (adult) (20 sources)Chronic hypoxemic respiratory failure; Translations: [Chronic respiratory failure with hypoxia]Onset: 04-13-2023 Resolved: 368435-01-3072LeadrhtMslqixtehbn failure; insufficiency; arrest (adult) (2 sources)Respiratory failure; Translations: [Respiratory failure, unspecified, unspecified whether with hypoxia or hypercapnia]90-28-2228YubdhqbtNryjpcf on above:Problem List clean-up per request of Phys. EHR CmteSpondylosis; intervertebral disc disorders; other back problems (20 sources)Spondylosis without myelopathy or radiculopathy, lumbar region; Translations: [Other intervertebraldisc degeneration, lumbar region]Onset: 38-51-2121AzynbelSxcdusohxqm; intervertebral disc disorders; other back problems (5 sources)Muscle spasm of back; Translations: [Intervertebral disc disorders with radiculopathy, lumbar region]Onset: 761639-67-5589QskahkyuDyibzdx on above:Problem List clean-up per request of Phys. EHR CmteSubstance-related disorders (20 sources)Smoker; Translations: [Tobacco use disorder]Onset: 82-77-6432Ruvccig Comment on above:1 pack daily;Unclassified (1 source)LOW BACK PAIN, UNSPECIFIED; Translations: [LOW BACK PAIN, UNSPECIFIED] Onset: 34-20-0734Dwnxwkhpbfvu (3 sources)CONTACT W/AND (SUSP) EXPOS COVID-19; Translations: [CONTACT W/AND (SUSP) EXPOS COVID-19]Onset: 07-92-5971Bxpatfglggvw (1 source)Other intervertebral disc degeneration, lumbar region with discogenic back pain only; Translations:[Other intervertebral disc degeneration, lumbar region with discogenic back pain only]Onset: 78-27-7697Phuduollrtlm (2 sources)Consult; Translations: [Consult]Onset: 67-14-6743Lcnrb infection (1 source)COVID-19; Translations: [COVID-19]Onset: 04-14-2022 Past or Other Problems Problem ClassificationProblemDateDocumented DateEpisodic/ChronicAbdominal hernia (1 source)Left inguinal hernia ; Translations: [Unilateral inguinal hernia, without obstruction or gangrene, not specified as recurrent]36-91-2330Lztxxpfj Administrative/social admission (5 sources)Patient encounter status; Translations: [Persons encountering health services in other specified circumstances]Onset: 626264-14-6857Dbuqvqcw Cardiac dysrhythmias (20 sources)Sinus bradycardia; Translations: [Other specified cardiac dysrhythmias]Onset: 69-35-2796YdjyjxnuMrsmsovxhioer symptoms and ill-defined conditions (20 sources)Dysuria; Translations: [Dysuria]Onset: 02-06-2024 Resolved: 259144-89-3903ShskzfblOegscpx on above:Problem List clean-up per request of Phys. 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 (current) drug therapy]Onset: 015716-99-4903MnkvfathVsrvx connective tissue disease (1 source)Other muscle spasm; Translations: [OTHER MUSCLE SPASM]Onset: 05-01-9889WpkqetivKcesd connective tissue disease (1 source)Pain in right lower limb; Translations: [Pain in right leg]12-07-2023 EpisodicOther lower respiratory disease (20 sources)Dyspnea; Translations: [Other respiratory abnormalities]Onset: 383455-70-2325ZaotwzrdFgsav lower respiratory disease (4 sources)Pleurodynia; Translations: [PLEURODYNIA]Onset: 11-93-0380Dgnicqsc Other lower respiratory disease (2 sources)Other forms of dyspnea; Translations: [Other forms of dyspnea]Onset: 00-95-9971KfctriavGarlu non-traumatic joint disorders (20 sources)Bilateral chronic pain of upper limbs; Translations: [Pain in right shoulder]Onset: 694186-08-7693RzyhncdmYavzi screening for suspected conditions (not mental disorders or infectious disease) (20 sources)Cardiovascular stress test abnormal; Translations: [Other nonspecific abnormal results of function study of cardiovascular system]Onset: 02-15-2022 Resolved: 590554-72-1124ZszfiknpUuttk upper respiratory disease (20 sources)Polyp of nasal cavity and/or nasal sinus; Translations: [Nasal polyp, unspecified]Onset: 050872-11-8374LyysamxvDlaluhay codes; unclassified (1 source)Tobacco user; Translations: [Tobacco use]33-54-9730FkdpvpffWqydxztoe and history of mental health and substance abuse codes (9 sources)Ex-smoker; Translations: [Personal history of nicotine dependence] Onset: 920690-41-2851GlezcmtkZzsifewodlib (1 source)CONTACT W/AND (SUSP) EXPOS COVID-19; Translations: [CONTACT W/AND (SUSP) EXPOS COVID-19]Onset: 75-61-9081Behnaxkufmbl (18 sources)Onset: 07-13-2023 Resolved: Results Test NameValueInterpretationReference RangeFacilityCardiac Device Check - Remote on 52-82-6204TfzfrzvgmhEast [facility] Work Phone: Radiology Study observation (narrative)[facility] Work Phone: Consulton [id number] Liliana Michaels 1965 M Date Provider Department Center 02/05/2025 [facility] SURG Second Fl No family history on file Level of Service:54953 CA OFFICE/OUTPATIENT NEW MODERATE MDM 45 MINUTES Reason for Visit and Comments: Consult [484]NormalUnTrinity Health System East CampusCardiac Device Check - In Clinicon 70-24-6021NzndywnrejCleveland Clinic Children's Hospital for Rehabilitation Work Phone: Radiology Study observation (narrative)[facility] Work Phone: ECG 12 lead (Clinic Performed)on 74-72-1482NEZ performed today shows atrial paced rhythm at rate of 65 bpm QRS duration 106 ms QT corrected 447 ms. Rhythm strip shows the same pattern. [facility] Work Phone: UnCleveland Clinic [facility] for Rehabilitation Work Phone: aLL CBC WITH AUTO DIFFon 13-15-5259WJNFDJLQZ ABSOLUTE AUTO0.1NOMS HealthcareBasophils/100 WBC (Bld)1 %0.2 - [...] review of laboratory resultsAbnormalNOMS Healthcare LYMPHOCYTES ABSOLUTE VLON8YZDZ HealthcareLymphocytes/100 WBC (Bld)22.8 %20.5 - 60.0 %NOMS Memorial Health SystemMCH (RBC) [Entitic mass]30.7 pg25.9 - 34.0 pgNOMS HealthcareMCHC (RBC) [Mass/Vol]34 g/dL29.9 - 35.2 g/dLNOMS HealthcareMCV (RBC) [Entitic vol]90.3 fL80.0 - 94.0 fLNOMS HealthcareMONOCYTES ABSOLUTE AUTO0.7NOMS HealthcareMonocytes/100 WBC (Bld)7.7 %1.7 - 12.0 %NOMS HealthcareNEUTROPHILS ABSOLUTE AUTO5.6NOMS HealthcareNeutrophils/100 WBC (Bld)64.5 %43.0 - 75.0 %NOMS HealthcarePlatelet mean volume (Bld) [Entitic vol]10.3 fL9.5 - 13.5 fLNOMS HealthcareTBH EO #0.3NOMS HealthcareTBH OHW594WPIC HealthcareTBH RBC5.25NOMS HealthcareTBH WBC8.7NOMS HealthcareCLINISYNCNOMS HealthcareCardiac Device Check - Remoteon 14-80-0864ZqxozlfwxvCleveland Clinic Children's Hospital for Rehabilitation Work Phone: Radiology Study observation (narrative)[facility] Work Phone: CT LUNG SCREENING LOW DOSEon 30-78-5272[address] [address] [address] Scan Report Signed Patient: LILIANA MICHAELS MR#: [id number] : 1965 Acct:[id number] Age/Sex: 59 / M ADM Date: 08/09/24 Loc: CT Attending Dr: Amina Cassidy D.O. Ordering Physician: Amina Cassidy D.O. Date of Service: 08/09/24 Procedure(s): CT lung screening low-dose Accession Number(s): [id number] cc: Ishmael Simon M.D. [address] [address] Patient Name: LILIANA MICHAELS MRN: [facility]:[id number] date: 1965 Sex: M Assigned Patient Location: CT Current Patient Location: CT Accession/Order Number: [id number] Exam Date: 08/09/2024 08:33 Report Date: 08/09/2024 [...] Candida Wright M.D.08/09/2024 8:45 AM Dictation Location: [place] [address] Electronically authenticated by: [id number] Y Date: 08/09/2024 08:45 Dictated By: Candida Wright M.D. Signed By: 08/09/24 0848 DD/ 0845 TD/TT: Holder Pile Driving:TBHRadiology, Radiologist, - 08/09/2024 [place] [address] CT Scan Report Signed Patient: LILIANA MICHAELS MR#: [id number] : 1965 Acct:[id number] Age/Sex: 59 / M ADM Date: 08/09/24 Loc: CT Attending Dr: Amina Cassidy D.O. Ordering Physician: Amina Cassidy D.O. Date of Service: 08/09/24 Procedure(s): CT lung screening low-dose Accession Number(s): [id number] cc: Ishmael Simon M.D. [place] [address] Patient Name: LILIANA MICHAELS MRN: [facility]:[id number] date: 1965 Sex: M Assigned Patient Location: CT Current Patient Location: CT Accession/Order Number: [id number] Exam Date: 08/09/2024 08:33 Report Date: 08/09/2024 [...] Candida Wright M.D.08/09/2024 8:45 AM Dictation Location: [place] [address] Electronically authenticated by: [id number] Y Date: 08/09/2024 08:45 Dictated By: Candida Wright M.D. Signed By: 08/09/24847 DD/ 4 TD/TT: Holder Pile Driving: [facility] HealthcareRadiology Study observation (narrative)[facility] HealthcareCT LUNG SCREENING LOW DOSEOrdered By: Radiologist Radiology on 04-56-3125[facility] Work Phone: aLL BASIC METABOLIC PANELon 35-58-6120Uaapo gap [Moles/Vol]13 mmol/LNOMS HealthcareCalcium [Mass/Vol]9.2 mg/dL8.5 - 10.1 mg/dL NOMS HealthcareChloride [Moles/Vol]100 mmol/L98 - 107 mmol/LNOMS HealthcareCO2 [Moles/Vol]29.3 mmol/L21.0 - 32.0 mmol/LNOMS HealthcareCreatinine [Mass/Vol]1.2 mg/dL0.70 - 1.30 mg/dLNOWV HealthcareGFR/1.73 sq M.predicted CKD-EPI (S/P/Bld) [Vol rate/Area]>60>=60 mL/min/1.73m 2NOMS HealthcareGlucose [Mass/Vol]118 mg/dL High74 - 106 mg/dLNOWV HealthcarePotassium [Moles/Vol]4.3 mmol/L3.5 - 5.1 mmol/L NOMS HealthcareSodium [Moles/Vol]138 mmol/L136 - 145 mmol/LNOMS HealthcareTBH EGFR-NON AF GUINEAN>60>=60 mL/min/1.73m 2NOMS HealthcareUrea nitrogen [Mass/Vol]18 mg/dL7.0 - 18.0 mg/dLNOWV HealthcareUrea nitrogen/Creatinine [Mass ratio]15 mg/mgNOWV HealthcareALL LIPID PROFILE (FASTING)on 15-40-3154EEHI HDL RATIO5.8NOWV HealthcareComment on above:3.3 - 4.4 LOW RISK 4.4 - 7.1 AVERAGE RISK 7.1 - 11.0 MODERATE RISK >11.0 HIGH RISK Cholesterol [Mass/Vol]265 mg/dLHighNINF - 200 mg/dLNOWV HealthcareCholesterol in HDL [Mass/Vol]46 mg/dL40 - 60 mg/dLNOMS HealthcareComment on above:> or =60 mg/dl - LOW CARDIOVASCULAR RISK <40 mg/dl - HIGH CARDIOVASCULAR RISK Magnesium [Mass/Vol]159 mg/dLNOMS HealthcareComment on above:<100 mg/dl OPTIMAL 100-129 mg/dl NEAR OR ABOVE OPTIMAL 130-159 mg/dl BORDERLINE HIGH 160-189 mg/dl HIGH >190 mg/dl VERY HIGH Magnesium [Mass/Vol]60.6 mg/dLNOMS HealthcareTriglyceride [Mass/Vol]303 mg/dL HighNINF - 150 mg/dLNOMS HealthcareCCF Mario 64-13-9331FQO [Catalytic activity/Vol]36 U/L16 - 63 U/LNOMS HealthcareCCF Isaura 18-10-8830DDP [Catalytic activity/Vol]U/LLow15 - 37 U/LNOMS HealthcareNo Panel Informationon 06-14-2024 Interpretation and review of laboratory resultsAbnormalNOMS HealthcareCLINISYNC NOMS HealthcareEPITHELIAL CELLSon 70-55-9938Gzfuhcetsa cells LM Ql (Urine sed) Epithelial Cells Few NOMS HealthcareNo Panel Informationon 05-02-7221WNJURRCWPCRIR HealthcareRESULT 1 on 80-20-8170JONAOZ 1 Result 1 Moderate number of gram positive cocci. NOMS HealthcareRESULT 2on 89-96-7838AUIRKM 2 Result 2 Few gram negative rods. NOMS HealthcareRESULT 3on 38-09-0255PWOFNF 3 Result 3 METEOROLOGY TEACHER NOMS HealthcareRESULT 4on 99-25-4562TKFOJM 4 Result 4 METEOROLOGY TEACHER NOMS HealthcareWHITE BLOOD CELLSon 04-28-6117OTRRL BLOOD CELLS White Blood Cells NOMS HealthcareWHITE BLOOD CELLSFewNOWV HealthcareCardiac Device Check - In Clinicon 78-74-3166YjtckdosflCleveland Clinic Children's Hospital for Rehabilitation Work Phone: Radiology Study observation (narrative)[facility] Work Phone: ECG 12 lead (Clinic Performed)on 61-76-4538WRL performed today shows atrial paced rhythm at rate of 74 bpm QRS ration 100 ms QT corrected 448 ms. Rhythm strip shows the same pattern.[facility] Work Phone: UnC[facility] Work Phone: MLR HEMOGLOBIN A1Con 65-82-2332Pgsmlgr [Mass/Vol]131 mg/dLMosaic Life Care at St. JosephHbA1c (Bld) [Mass fraction]6.2 %4.5 - 6.2 %[facility] Comment on above:ADA RECOMMENDED LIMIT 4.0 - 6.0 ADA THERAPEUTIC TARGET < 7.0 ACTION SUGGESTED > 7.[address]CMosaic [address] JosephMagnetic resonance imaging reportOrdered By: Germán Murphy on 77-52-4882Xamqk reportOHIO VALLEY H[facility] Main [employer] [address] [place] [address] MRI Report Signed Patient: Liliana Michaels JR MR#: [id number] : 1965 Acct:[id number] Age/Sex: 59 / M ADM Date: 4 Loc: MR Room: Type: [facility] Attending Dr: Danielle GAYTAN Copies to: LUKAS Burns~ Ordering Provider: LUKAS Burns Date of Service: 03/27/24 MR/MR lumbar spine wo con: LUMBAR DDD ([id number]) XR/XR pre/post mri xray: LUMBAR DDD MRI [...] Murphy Jr., D.O.03/27/2024 11:57 AM Dictation Location: [place] [address] Transcribed By: [facility] 03/27/24 1157 Dictated By: Germán Murphy Jr, DO 03/27/24 1148 Signed By: 03/27/24 1157 [facility] HospitalXR pre/post mri xrayon 54-48-4467HB pre/post mri xrayOHIO VALLEY HOSPITAL [facility] [employer] [address] [place] [address] MRI Report Signed Patient: Liliana Michaels JR MR#: [id number] : 1965 Acct:[id number] Age/Sex: 59 / M ADM Date: 03/27/24 Loc: MR Room: Type: [facility] Attending Dr: Danielle GAYTAN Copies to: LUKAS Burns Ordering Provider: LUKAS Burns Date of Service: 03/27/24 MR/MR lumbar spine wo con: LUMBAR DDD ([id number]) XR/XR pre/post mri xray: LUMBAR DDD MRI [...] Murphy Jr., D.OAtiya03/27/2024 11:57 AM Dictation Location: [place] [address] Transcribed By: [facility] 03/27/24 1157 Dictated By: Germán Murphy Jr, DO 03/27/24 1148 Signed By: 03/27/24 1157[facility] Physician GroupXR chest 2V*on 33-18-8936BG chest 2V*[facility] Main [place] [id number] XRay Report Signed Patient: Liliana Michaels JR MR#: [id number] : 1965 Acct:[id number] Age/Sex: 59 / M ADM Date: 03/16/24 Loc: [facility] Room: Type: [facility] Attending Dr: Danielle GAYTAN Copies [...] Elia Rodrigez M.D.03/16/2024 8:54 AM Dictation Location: [facility]--16 Transcribed By: [facility] 03/16/24 0854 Dictated By: Elia Rodrigez DO 03/16/24 0849 Signed By: 03/16/24 0854[facility] Physician GroupCardiac Device Check - Remoteon 25-32-1643ZwduvkfpeoCleveland Clinic Children's Hospital for Rehabilitation Work Phone: Radiology Study observation (narrative)[facility] Work Phone: TB UA (CLEAN/CATCH) MICROSCOPIC IF INDICATEon 99-82-9987FKOXEAZWI URINENegativeNEGATIVENOMS HealthcareBLOOD URINETRACE-I NEGATIVENOMS HealthcareClarity (U)SL CLOUDYCLEARNOMS HealthcareColor (U)LT. YELLOWYELLOWNOMS HealthcareGLUCOSE URINE UANegativeNEGATIVE mg/dLNOMS Healthcare Interpretation and review of laboratory resultsAbnormalNOMS HealthcareKetones Ql (U)NegativeNEGATIVE mg/dLNOMS HealthcareLeukocyte esterase Test strip Ql (U) LARGEAbnormalNEGATIVENOMS HealthcareNITRITE URINENegativeNEGATIVENOMS Healthcare pH (U)6.0 [pH]5.0 - 9.0NOWV HealthcarePROTEIN URINENegativeNEG/TRACE mg/dLNOWV HealthcareSPECIFIC GRAVITY URINE1.0151.005 - 1.025NOWV HealthcareURINE MICROSCOPIC INDICATEDYESNOWV HealthcareUROBILINOGEN URINE0.2 EU/dL0.2 - 1.0 EU/dLNOWV HealthcareCLINISYNCNOMS HealthcareXR CHEST 2 VIEWS VINCENZO/Pal 11-10-2023 Report to [facility] registration on 11/09/2023 at 8:30 AM for chest x-ray and device check prior to appointment with Dr. Son at 10 AM Interpreted By: Sancho Gross, STUDY: XR CHEST 2 VIEWS; 11/09/2023 9:46 am INDICATION: Signs/Symptoms:Pacemaker. COMPARISON: 08/05/2023 ACCESSION NUMBER(S): [id number] ORDERING CLINICIAN: ANA M KUMARI FINDINGS: Left-sided pacemaker in place. CARDIOMEDIASTINAL SILHOUETTE: Cardiomediastinal silhouette is normal in size and configuration. LUNGS: Lungs are clear. ABDOMEN: No remarkable upper abdominal findings. BONES: No acute osseous changes. IMPRESSION: 1. No evidence of acute cardiopulmonary process. MACRO: None Signed by: Sancho Gross 11/10/2023 8:35 AM Dictation workstation: [id number], Radiologist, - 11/10/2023 Report to [facility] registration on 11/09/2023 at 8:30 AM for chest x-ray and device check prior to appointment with Dr. Son at 10 AM Interpreted By: Sancho Gross, STUDY: XR CHEST 2 VIEWS; 11/09/2023 9:46 am INDICATION: Signs/Symptoms:Pacemaker. COMPARISON: 08/05/2023 ACCESSION NUMBER(S): [id number] ORDERING CLINICIAN: ANA M KUMARI FINDINGS: Left-sided pacemaker in place. CARDIOMEDIASTINAL SILHOUETTE: Cardiomediastinal silhouette is normal in size and configuration. LUNGS: Lungs are clear. ABDOMEN: No remarkable upper abdominal findings. BONES: No acute osseous changes. IMPRESSION: 1. No evidence of acute cardiopulmonary process. MACRO: None Signed by: Sancho Gross 11/10/2023 8:35 AM Dictation workstation: [id number] NOMS HealthcareXR CHEST 2 VIEWS PA/LATOrdered By: Radiologist Radiology on 08-06-6393ONFJ [employer] Work Phone: XR CHEST 2 VIEWS PA/LATon 07-54-2063Mreoyzzyd Study observation (narrative)NOMS HealthcareXR Shoulder - bilateral 2 View[place] 55-83[place], [place] [address] XRay Report Signed Patient: LILIANA MICHAELS MR#: [id number] : 1965 Acct:[id number] Age/Sex: 58 / M ADM Date: 10/10/23 Loc: LAB Attending Dr: Ishmael Simon M.D. Ordering Physician: Ishmael Simon M.D. Date of Service: 10/10/23 Procedure(s): XR shoulder KRISTOPHER min 2V Accession Number(s): [id number] cc: Ishmael Simon M.D. [place] [address] Patient Name: LILIANA MICHAELS MRN: [facility]:[id number] date: 1965 Sex: M Assigned Patient Location: LAB Current Patient Location: Accession/Order Number: [id number] Exam Date: 10/10/2023 12:45 Report Date: 10/11/2023 [...] Signed By: 10/11/23 1137 DD/ 1134 TD/TT: Holder Pile Driving:TBHRadiology, Radiologist, MD - 10/11/2023 [place] [address] XRay Report Signed Patient: LILIANA MICHAELS MR#: [id number] : 1965 Acct:[id number] Age/Sex: 58 / M ADM Date: 10/10/23 Loc: LAB Attending Dr: Ishmael Simon M.D. Ordering Physician: Ishmael Simon M.D. Date of Service: 10/10/23 Procedure(s): XR shoulder KRISTOPHER min 2V Accession Number(s): [id number] cc: Ishmael Simon M.D. [place] [address] Patient Name: LILIANA MICHAELS MRN: [facility]:[id number] date: 1965 Sex: M Assigned Patient Location: LAB Current Patient Location: Accession/Order Number: [id number] Exam Date: 10/10/2023 12:45 Report Date: 10/11/2023 [...] Signed By: 10/11/23 1137 DD/ 1134 TD/TT: Holder Pile Driving: NOMFransico HealthcareRadiology Study observation (narrative)NOMS HealthcareXR Shoulder - bilateral 2 ViewsOrdered By: Radiologist Radiology on 83-70-0323DPOBMosaic Life Care at St. Joseph Work Phone: cardiac Device Check - Remoteon 84-36-9672SokoelwxolCleveland Clinic Children's Hospital for Rehabilitation Work Phone: Radiology Study observation (narrative)[facility] Work Phone: US.doppler Upper extremity vein - lefton 08-10-2023 Exam negative for acute deep venous thrombosis in the left upper extremity MACRO: None Signed by: Simone Ramos 08/10/2023 3:07 PM Dictation workstation: [id number] By: Simone Ramos, STUDY: [facility] US UPPER EXTREMITY VENOUS DUPLEX LEFT; 08/10/2023 2:47 pm INDICATION: Signs/Symptoms: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 COMPARISON: Portable chest 05 August 2023 ACCESSION NUMBER(S): [id number] ORDERING CLINICIAN: NAIMA WRIGHT TECHNIQUE: Vascular ultrasound [...] - 08/10/2023 Interpreted By: Simone Ramos, STUDY: [facility] US UPPER EXTREMITY VENOUS DUPLEX LEFT; 08/10/2023 2:47 pm INDICATION: Signs/Symptoms: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 COMPARISON: Portable chest 05 August 2023 ACCESSION NUMBER(S): [id number] ORDERING CLINICIAN: NAIMA WRIGHT TECHNIQUE: Vascular ultrasound [...] Simone Ramos 08/10/2023 3:07 PM Dictation workstation: [id number] [facility] Work Phone: Interpreted By: Simone Ramos, STUDY: [facility] US UPPER EXTREMITY VENOUS DUPLEX LEFT; 08/10/2023 2:47 pm INDICATION: Signs/Symptoms: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 COMPARISON: Portable chest 05 August 2023 ACCESSION NUMBER(S): [id number] ORDERING CLINICIAN: NAIMA WIRGHT TECHNIQUE: Vascular ultrasound of the left upper [...] Simone Ramos 08/10/2023 3:07 PM Dictation workstation: [id number], Radiologist, - 08/10/2023 Interpreted By: Simone Ramos, STUDY: [facility] US UPPER EXTREMITY VENOUS DUPLEX LEFT; 08/10/2023 2:47 pm INDICATION: Signs/Symptoms: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 COMPARISON: Portable chest 05 August 2023 ACCESSION NUMBER(S): [id number] ORDERING CLINICIAN: NAIMA WRIGHT TECHNIQUE: Vascular ultrasound [...] Simone Ramos 08/10/2023 3:07 PM Dictation workstation: [id number] [facility]. JosephRadiology Study observation (narrative)[facility] Work Phone: Radiology Study observation (narrative)[facility] US.doppler Upper extremity vein - leftOrdered By: Simone Raoms on 08-10-2023 [facility] Work Phone: US.doppler Upper extremity vein - leftOrdered By: Radiologist Radiology on 70-50-3573AEJLMosaic Life Care at St. Joseph Work Phone: basic metabolic 2000 panelon 13-25-9371Drasp gap [Moles/Vol]12 mmol/L10 - 20 mmol/[facility] HospitalCalcium [Mass/Vol]9.6 mg/dL8.6 - 10.3 mg/dLEast Ohio Regional HospitalChloride [Moles/Vol]102 mmol/L98 - 107 mmol/[facility] HospitalCO2 [Moles/Vol]29 mmol/L21 - 32 mmol/[facility] HospitalCreatinine [Mass/Vol]1.12 mg/dL0.50 - 1.30 mg/dLUnCleveland Clinic Children's Hospital for RehabilitationGFR/1.73 sq M.predicted among non-blacks MDRD (S/P/Bld) [Vol rate/Area]76 mL/min/{1.73_m2}- PINFUniProtestant Deaconess HospitalComment on above: Calculations of estimated GFR are performed using the 2020 CKD-EPI Study Refit equation without therace variable for the IDMS-Traceable creatinine methods. https://jasn.asnjournals.org/content//ASN.8896626694 Glucose [Mass/Vol]95 mg/dL74 - 99 mg/dLUnCleveland Clinic Children's Hospital for Rehabilitation Interpretation and review of laboratory resultsNoBarberton Citizens HospitalPotassium [Moles/Vol]4.0 mmol/L3.5 - 5.3 mmol/[facility] HospitalSodium [Moles/Vol]139 mmol/L136 - 145 mmol/[facility] HospitalUrea nitrogen [Mass/Vol]17 mg/dL6 - 23 mg/dLUnCleveland Clinic Children's Hospital for RehabilitationUnCleveland Clinic Children's Hospital for RehabilitationCBC panel Auto (Bld)on 08-05-2023 Erythrocyte distribution width (RBC) [Ratio]13.0 %11.5 - 14.5 %[facility] HospitalHematocrit (Bld) [Volume fraction]46.9 %41.0 - 52.0 % [facility] HospitalHemoglobin (Bld) [Mass/Vol]16.1 g/dL13.5 - 17.5 g/dLUnCleveland Clinic Children's Hospital for RehabilitationInterpretation and review of laboratory resultsNoHolmes County Joel Pomerene Memorial HospitalH (RBC) [Entitic mass]31.5 pg 26.0 - 34.0 pgUnCleveland Clinic Children's Hospital for RehabilitationMCHC (RBC) [Mass/Vol]34.3 g/dL 32.0 - 36.0 g/dLUnCleveland Clinic Children's Hospital for RehabilitationMCV (RBC) [Entitic vol]92 fL80 - 100 fLUniProtestant Deaconess HospitalNucleated RBC/100 WBC (Bld) [Ratio]0.0 %[facility] HospitalPlatelets (Bld) [#/Vol]279 10*3/[facility] HospitalRBC (Bld) [#/Vol]5.11 10*6/[facility] HospitalWBC (Bld) [#/Vol]8.9 10*3/[facility] HospitalUnCleveland Clinic Children's Hospital for RehabilitationElectrophysiology studyon 40-24-1899NldmvcbxhqCleveland Clinic Children's Hospital for Rehabilitation Work Phone: PT and aPTT panel Coag (PPP)on 71-57-6115dWAP Coag (PPP) [Time]34 [facility] CenterINR Coag (PPP) [Relative time] 1.0 {INR}0.9 - 1.1[facility] HospitalInterpretation and review of laboratory resultsNormalUniversBluffton Regional Medical CenterPT Coag (PPP) [Time] 11.0 [facility] CenterThe APTT is no longer used for monitoring Unfractionated Heparin Therapy. For monitoring Heparin Therapy, use the Heparin Assay.[facility] HospitalUnCleveland Clinic Children's Hospital for RehabilitationUS Heart TransthoracicOrdered By: Batsheva Morris on 45-54-1274Eyhrsg Valve Area by Continuity of Peak Velocity2.42 cg7GlznwrazfkEast [facility] Hospital Work Phone: Aortic Valve Area by Continuity of VTI2.62 cm2 [facility] Work Phone: AV mn grad4.0mmHgEast [facility] Work Phone: [phone] pk grad8.2mmHgEast [facility] Work Phone: [phone] pk vel1.43 m/[facility] Work Phone: LA vol index A/L29.3 ml/i2YiorfkzhxbCleveland Clinic Children's Hospital for Rehabilitation Work Phone: LV A4C EF62.4[facility] Work Phone: LV biplane EF60 %[facility] Work Phone: LVIDd5.28 cmUnCleveland Clinic Children's Hospital for Rehabilitation Work Phone: LVOT diam2.00 cmEast [facility] Hospital Work Phone: MV avg E/e' ratio7.78UnCleveland Clinic Children's Hospital for Rehabilitation Work Phone: [phone] E/A ratio0.88UnCleveland Clinic Children's Hospital for Rehabilitation Work Phone: RV free wall pk S'15.40 cm/sUnCleveland Clinic Children's Hospital for Rehabilitation Work Phone: RVSP23.4mmHgUnCleveland Clinic Children's Hospital for Rehabilitation Work Phone: Tricuspid annular plane systolic excursion3.6 cm [facility] Work Phone: UnCleveland Clinic Children's Hospital for Rehabilitation Work Phone: US Heart Transthoracicon 08-05-2023 [place] [id number] TRANSTHORACIC ECHOCARDIOGRAM REPORT Patient Name: LILIANA MICHAELS Reading Physician: [id number] Batsheva Morris MD, [facility] Study Date: 08/05/2023 Ordering Provider: [id number] ANA M ANGEL MRN/PID: [id number] Fellow: Nurse: Date of /Age: 10 1965 / 58 Squirrel Worker: Eli Pisano RDCS Gender: M Additional Staff: Height: 162.56 cm Admit Date: Weight: 90.72 kg Admission Status: Outpatient BSA / BMI: 1.96 m2 / 34.33 Department Location: [place] [address] Echo Lab Blood Pressure: 128 /73 mmHg Study Type: TRANSTHORACIC ECHO (TTE) COMPLETE Diagnosis/ICD: Bradycardia, unspecified-R00.1 Indication: Abnormal EKG, Pre-EP CPT Codes: Echo Complete w Full Doppler-96031 Study Detail: The following Echo studies were [...] LA Area A2C: 18.9 cm2 LA Major [place] A4C: 5.8 cm LA Major [place] A2C: 5.5 cm LA Volume Index: 27.0 [...] content not included)...Batsheva Dotson MD - 08/05/2023 [place] [address] TRANSTHORACIC ECHOCARDIOGRAM REPORT Patient Name: LILIANA MICHAELS Reading Physician: [id number] Batsheva Morris MD, [facility] Study Date: 08/05/2023 Ordering Provider: [id number] ANA M ANGEL MRN/PID: [id number] Fellow: Nurse: Date of /Age: 10 1965 Squirrel Worker: Eli Pisano CS Gender: M Additional Staff: Height: 162.56 cm Admit Date: Weight: 90.72 kg Admission Status: Outpatient BSA / BMI: 1.96 m2 / 34.33 Department Location: [facility] [place]/m2 Echo Lab Blood Pressure: 128 /73 mmHg Study Type: TRANSTHORACIC ECHO (TTE) COMPLETE Diagnosis/ICD: Bradycardia, unspecified-R00.1 Indication: Abnormal EKG, Pre-EP CPT Codes: Echo Complete w Full Doppler-34039 Study Detail: The following Echo studies were [...] LA Area A2C: 18.9 cm2 LA Major Aurora A4C: 5.8 cm LA Major Aurora A2C: 5.5 cm LA Volume Index: 27.0 [...] 1.3 m/s (0.6-0.9m/s) PV Max P.6 mmHg 25693 Batsheva Morris MD, [facility] Electronically signed on 08/05/2023 at 2:30:14 PM Final [facility] [place] [facility] Work Phone: xr Chest Single viewon 47-31-6471Ulckom post pacemaker placement. Signed by: Salvatore Clark 08/05/2023 6:10 PM Dictation workstation: [id number] By: Salvatore Clark, STUDY: XR CHEST 1 VIEW INDICATION: Signs/Symptoms:post implant. COMPARISON: None ACCESSION NUMBER(S): [id number] ORDERING CLINICIAN: ANA M KUMARI FINDINGS: No consolidation, effusion, edema, or pneumothorax. Pacemaker placed without pneumothorax. Position satisfactory. MMSalvatore Warren MD - 08/05/2023 Interpreted By: Salvatore Clark, STUDY: XR CHEST 1 VIEW INDICATION: Signs/Symptoms:post implant. COMPARISON: None ACCESSION NUMBER(S): [id number] ORDERING CLINICIAN: ANA M KUMARI FINDINGS: No consolidation, effusion, edema, or pneumothorax. Pacemaker placed without pneumothorax. Position satisfactory. IMPRESSION: Status post pacemaker placement. Signed by: Salvatore Calrk 08/05/2023 6:10 PM Dictation workstation: [id number] [facility] Work Phone: Radiology Study observation (narrative)[facility] Work Phone: xr Chest Single viewOrdered By: Salvatore Clark on 49-89-9074EltlymuacjCleveland Clinic [facility]'s [facility] Work Phone: ecg 12 lead (Clinic Performed)on 90-35-0131DEG shows marked sinus bradycardia rate of 41 bpm QRS ration 100 ms QT corrected he had a 91 ms. Rhythm strip shows the same pattern.CPACSUnCleveland Clinic Children's Hospital for Rehabilitation Work Phone: CT LUNG CANCER SCREENINGon 52-60-8645KW LUNG CANCER SCREENINGEXAMINATION: CT LUNG CANCER SCREENING [...] LDCT in 12 months. Electronically authenticated by: BATSEHVA ALVARADO Date: 2022-07-15 12:[address] [place], [place] [address]Office Visit (Cardiology)on 00-95-7756Yivimn-up visit Diagnoses/Problems Assessed Sinus bradycardia (427.89) (R00.1) [...] we can help. You may also call [phone]-QFHHBluebox Now!NOW for free resources and assistance.; Status:Complete - [...] ischemic evaluation. He underwent cardiac catheterization in [place] which showed no significant obstructive disease 3. [...] BY MOUTH FOUR TIMES A DAY NEEDED Ohqqkz0j at bedtime Singulair 10 MG Oral TabletTAKE [...] Recorded: 14Jul2022 10:57AM Heart Rate34, L Radial Eqxcqzeq930, LUE, Sitting Bngtctqjp28, LUE, Sitting Height5 ft 4 in Uqltdy855 lb BMI Aocjwesdjf34.96 kg/m2 BSA Calculated1.92 Tobacco Usea) Yes Patient encouraged to st (more content not included)...NormalUH Touchworks Tobacco Screening.on 41-53-4491Onogw depression screening assessmentNoKindred Healthcare BlackDuckRusk Rehabilitation CenterBaltimoreQMCODES DO Work Phone: Fall risk assessmenta) No falls within the last year [facility] Xola DO Work Phone: Tobacco use status CPHSa) YesKindred Healthcare [facility]DuckMidstate [facility] Xola DO Work Phone: Tobacco Screening.YesJohnson [facility] Xola DO Work Phone: CT ABD/PELV W CONon 55-39-5142OC ABD/PELV W CON EXAMINATION: CT ABD/PELV W [...] Electronically authenticated by: FLEX JACOBS Date: 2022-06-11 10:06[facility] AUTO DIFFon 70-93-7749TTGO #0.1 103/ulNormal0.0-0.1The [facility] County HospitalComment on above:Performed By: #### CBC #### [facility] [address] [address] [address] Britt MendozaBasophils/100 WBC (Bld)1.6 %Normal0.2-2.0The [facility] Comment on above:Performed By: #### CBC #### [facility] [address] [place] [address] Dr. Britt Kent #0.2 103/ulNormal0.0-0.7The [facility] County HospitalComment on above: Performed By: #### CBC #### [facility] [address] [address] [address] Britt Sueosinophils/100 WBC (Bld)3.0 %Normal0.9-7.0The [facility] Comment on above:Performed By: #### CBC #### [facility] [address] [address] [address] Britt Suerythrocyte distribution width (RBC) [Ratio]12.4 %Wuaika18.0-15.0 The [facility] County HospitalComment on above:Performed By: #### CBC #### [facility] [address] [address] [address] Britt MendozaHematocrit (Bld) [Volume fraction]43.2 %Nnvhyn58.0-54.0The [facility] County HospitalComment on above:Performed By: #### CBC #### [facility] [address] [address] [address] Britt MendozaHemoglobin (Bld) [Mass/Vol]14.7 g/jIQlepic97.0-18.0The [facility] County HospitalComment on above:Performed By: #### CBC #### [facility] [address] [address] [address] Britt Esposito #0.11 10e3/ulCritically high0.00-0.03The [facility] Comment on above:Performed By: #### CBC #### [facility] [address] [address] [address] Britt Esposito %1.4 %Critically high0.0-0.5The [facility]icho HospitalComment on above:Performed By: #### CBC #### [facility] [address] [address] [address] Britt Meyer #1.7 103/ulNormal1.2-3.8The [facility] County HospitalComment on above:Performed By: #### CBC #### [facility] [address] [place] [address] Dr. Britt Sebastianhocytes/100 WBC (Bld)21.6 %Bfnziu73.5-60.0[facility] Lodi HospitalComment on above:Performed By: #### CBC #### [facility] [address] [address] [address] Britt HernandezUAL DIFF REQNONormalThe [facility] County HospitalComment on above: Performed By: #### CBC #### [facility] [address] [place] [address] Dr. Britt Johns (RBC) [Entitic mass]31.2 pzEmepie20.9-34.0The [facility] County HospitalComment on above:Performed By: #### CBC #### [facility] [address] [place] [address] Dr. Britt Johns (RBC) [Mass/Vol]34.0 g/tUBszyla34.9-35.2The [facility] HospitalComment on above:Performed By: #### CBC #### [facility] [address] [place] [address] Dr. Britt Johns (RBC) [Entitic vol]91.7 rCYisikh44.0-94.0The [facility] HospitalComment on above:Performed By: #### CBC #### [facility] [address] [address] [address] Britt Ba #0.5 103/ulNormal0.3-0.8The [facility] HospitalComment on above:Performed By: #### CBC #### [facility] [address] [place] [address] Dr. Britt Rodriguezocytes/100 WBC (Bld)6.8 %Normal1.7-12.0The [facility] Comment on above:Performed By: #### CBC #### [facility] [address] [place] [address] Dr. Britt Nichols #5.0 103/ulNormal1.4-6.5The [facility] HospitalComment on above:Performed By: #### CBC #### [facility] [address] [place] [address] Dr. Britt Carrilloutrophils/100 WBC (Bld)65.6 %Cbsqzj88.0-75.0The [facility] County HospitalComment on above:Performed By: #### CBC #### [facility] [address] [place] [address] Dr. Britt Pierce mean volume (Bld) [Entitic vol]9.7 fLNormal9.5-13.5The [facility] County HospitalComment on above:Performed By: #### CBC #### [facility] [address] [place] [address] Dr. Britt WuT244 103/oeXyxord685-598Kgh [facility] County HospitalComment on above: Performed By: #### CBC #### [facility] [address] [place] [address] Dr. Britt MendozaRBC4.71 106/ulNormal4.70-6.10The [facility] County HospitalComment on above:Performed By: #### CBC #### [facility] [address] [place] [address] Dr. Britt MendozaWBC7.6 103/ulNormal4.0-11.0The [facility] HospitalComment on above: Performed By: #### CBC #### [facility] [address] [address] [address] Britt MendozaGLYCOHEMOGLOBIN A1Con 93-49-9111HTC RECOMMENDATIONSEE BELOWKettering Health SpringfieldComment on above:Result Comment: ADA RECOMMENDED LIMIT 4.0 - 6.0 ADA THERAPEUTIC TARGET < 7.0 ACTION SUGGESTED > 7.0Performed By: #### A1C ####[facility] [address] [address]DrAtiya MendozaGlucose [Mass/Vol]117 mg/dLNoMetroHealth Main Campus Medical CenterComment on above:Performed By: #### A1C ####[facility] [address] [address]Dr.Yilan MendozaHbA1c (Bld) [Mass fraction]5.7 %Normal 4.5-6.2The [facility] County HospitalComment on above:Performed By: #### A1C ####[facility] [address] [place], [place] [address]Dr.Yilan MendozaLIPID PROFILEon 58-13-1655KKWD-HDL RATIO NORMSEE [facility] Comment on above:Result Comment: 3.3 - 4.4 LOW RISK 4.4 - 7.1 AVERAGE RISK 7.1 - 11.0 MODERATE RISK >11.0 HIGH RISKPerformed By: #### BMP, LIVER, LIPID, TSH ####[facility] [address] [address]DrAtiya MendozaCholesterol [Mass/Vol]235 mg/dLCritically high<=200The [facility] HospitalComcorewell health william [facility] on above:Performed By: #### BMP, LIVER, LIPID, TSH ####[facility] [address] [address]DrAtiya Mendoza Cholesterol in HDL [Mass/Vol]40 mg/fQIvwdwn02-93ZsoCleveland Clinic [facility] Lodi HospitalComcorewell health william [facility] on above:Performed By: #### BMP, LIVER, LIPID, TSH ####[facility] [address] [place], [place] [address]Dr. Yilan ChangCholesterol in LDL [Mass/Vol]156.8 mg/dLGenesis HospitalComment on above:Performed By: #### BMP, LIVER, LIPID, TSH ####[facility] [address] [address]Dr. Anjalilan ChangCholesterol.total/Cholesterol in HDL [Mass ratio]5.9 {ratio}NormalCleveland Clinic [facility] General Lodi HospitalComment on above:Performed By: #### BMP, LIVER, LIPID, TSH ####[facility] [address] [address]Dr. Yilan ChangHDL NORMAL> or = 60 mg/dl - LOW CARDIOVASCULAR RISK <40 mg/dl - HIGH CARDIOVASCULAR RISKGenesis HospitalComment on above:Performed By: #### BMP, LIVER, LIPID, TSH ####[facility] [address] [address]Dr. Yilan ChangLDL CALC NORMALSEE BELOWNoMetroHealth Main Campus Medical CenterComment on above:Result Comment: <100 mg/dl OPTIMAL 100 - 129 mg/dl NEAR OR ABOVE OPTIMAL 130 - 159 mg/dl BORDERLINE HIGH 160 - 189 mg/dl HIGH >190 mg/dl VERY HIGHPerformed By: #### BMP, LIVER, LIPID, TSH ####[facility] [address] [address]Dr. Anjalilan ChangTriglyceride [Mass/Vol]191 mg/dLCritically high<=150[facility] on above:Performed By: #### BMP, LIVER, LIPID, TSH ####[facility] [address] [address]Dr. Anjalilan ChangVLDL CALC38.2 mg/dLNoMetroHealth Main Campus Medical CenterComment on above: Performed By: #### BMP, LIVER, LIPID, TSH ####[facility] [address] [address]Dr. Anjalilan ChangLIVER PROFILEon 05-07-2022 Albumin [Mass/Vol]3.6 g/dLNormal3.4-5.0The [facility] County HospitalComment on above: Performed By: #### BMP, LIVER, LIPID, TSH ####[facility] [address] [address]Dr. Yilan ChangAlbumin/Globulin [Mass ratio] 1.1 {ratio}NormalThe [facility] County HospitalComment on above:Performed By: #### BMP, LIVER, LIPID, TSH ####[facility] [address] [address]Dr. Yilan ChangALP [Catalytic activity/Vol]84 U/DNkbnpx41-190Aic [facility] HospitalComment on above:Performed By: #### BMP, LIVER, LIPID, TSH ####[facility] [address] [address]Dr. Yilan ChangALT [Catalytic activity/Vol]34 U/NKhrzxz08-42Ahf [facility] Comment on above:Performed By: #### BMP, LIVER, LIPID, TSH ####[facility] [address] [place], [place] [address]Dr. Yilan ChangAST [Catalytic activity/Vol]21 U/KWxxfrw85-71Mas [facility] HospitalComment on above:Performed By: #### BMP, LIVER, LIPID, TSH ####[facility] [address] [place], [place] [address]Dr. Yilan ChangBILI, CONJUGATED0.1 mg/dLNormal0.0-0.2 The [facility] Hospitalment on above:Performed By: #### BMP, LIVER, LIPID, TSH ####[facility] [address] [address]Dr. Yilan ChangBilirubin [Mass/Vol]0.4 mg/dLNormal0.2-1.0[facility] Comment on above:Performed By: #### BMP, LIVER, LIPID, TSH ####[facility] [address] [place], [place] [address]Dr. Yilan ChangGlobulin (S) [Mass/Vol]3.4 g/dLNormalThe [facility] HospitalComment on above:Performed By: #### BMP, LIVER, LIPID, TSH ####[facility] [address] [place], [place] [address]Dr. Yilan ChangProtein [Mass/Vol]7.0 g/dLNormal6.4-8.2 The [facility] HospitalComment on above:Performed By: #### BMP, LIVER, LIPID, TSH ####[facility] [address] [address]Dr. Britt MendozaPROF CHEM 8 (BAS METB)on 73-77-5517Flxqo gap [Moles/Vol]13.8 mmol/L NormalThe [facility] County HospitalComment on above:Result Comment: Previously reported as: -2.3 On 05/07/2022 13:50 By [id number] By: #### BMP, LIVER, LIPID, TSH #### [facility] [address] [address] [address] Britt MendozaCalcium [Mass/Vol]9.2 mg/dLNormal8.5-10.1The [facility] Comment on above:Performed By: #### BMP, LIVER, LIPID, TSH #### [facility] [address] [address] [address] Britt MendozaChloride [Moles/Vol]99 mmol/BYohheg98-532Zwl [facility] Comment on above:Result Comment: Previously reported as: 106 On 05/07/2022 13:50 By [id number] By: #### BMP, LIVER, LIPID, TSH #### [facility] [address] [address] [address] Britt MendozaCO2 [Moles/Vol]27.3 mmol/XFkoqyn10.0-32.0The [facility] Comment on above:Result Comment: Previously reported as: 29.2 On 05/07/2022 13:50 By [id number] By: #### BMP, LIVER, LIPID, TSH #### [facility] [address] [address] [address] Britt MendozaCreatinine [Mass/Vol]1.12 mg/dLNormal0.70-1.30The [facility] HospitalComment on above:Performed By: #### BMP, LIVER, LIPID, TSH #### [facility] [address] [address] [address] Britt SueGFR-AF GUINEAN>60Normal>=60The [facility] HospitalComment on above:Performed By: #### BMP, LIVER, LIPID, TSH #### [facility] [address] [address] [address] Britt SueGFR-NON AF GUINEAN>60Normal>=60The [facility] HospitalComment on above:Performed By: #### BMP, LIVER, LIPID, TSH #### [facility] [address] [address] [address] Britt MendozaGlucose [Mass/Vol]108 mg/dLCritically ouij98-226Jgz [facility] HospitalComment on above:Performed By: #### BMP, LIVER, LIPID, TSH #### [facility] [address] [address] [address] Britt MendozaPotassium [Moles/Vol]4.1 mmol/LNormal3.5-5.1The [facility] Comment on above:Result Comment: Previously reported as: 3.9 On 05/07/2022 13:50 By [id number] By: #### BMP, LIVER, LIPID, TSH #### [facility] [address] [place] [address] Dr. Britt MendozaSodium [Moles/Vol]136 mmol/DKytbsf843-889Mxj [facility] Comment on above:Result Comment: Previously reported as: 129 On 05/07/2022 13:50 By [id number] By: #### BMP, LIVER, LIPID, TSH #### [facility] [address] [address] [address] Britt MendozaUrea nitrogen [Mass/Vol]26.0 mg/dLCritically high7.0-18.0The [facility] HospitalComment on above:Performed By: #### BMP, LIVER, LIPID, TSH #### [facility] [address] [address] [address] Britt Suárez nitrogen/Creatinine [Mass ratio]23.2 mg/mgNormalThe [facility] HospitalComment on above:Performed By: #### BMP, LIVER, LIPID, TSH #### [facility] [address] [address] [address] Britt Leiva 46-58-4206FAV2.828 uIU/mLNormal0.358-3.740[facility] Lodi HospitalComment on above:Performed By: #### BMP, LIVER, LIPID, TSH ####[facility] [address] [address]Dr. Britt Mendoza VITAMIN D 25 OHon 10-78-9574QMC D 25-OH45.6 ng/mLNormalC[facility] Clinic [facility] Comment on above:Performed By: #### VITAD, PSASC #### [facility] [address] [address] [address] Britt Aj [facility] HospitalComment on above: Result Comment: <20 ng/mL Vit D deficient 20 - <30 ng/mL Vit D insufficient 30 - 100 ng/mL Vit D sufficient >100 ng/mL Potential ToxicityPerformed By: #### VITAD, PSASC #### [facility] [address] [address] [address] Britt MendozaCovid-19 PCR (CVDTBH)on 71-33-0102PHQL-CoV-2 (COVID-19) RNA KATT+probe Ql (Unsp spec)DetectedCritically abnormalNOT DETECTEDThe [facility] County HospitalComment on above:Result Comment: This test is not yet approved or cleared by the [place] FDA. When there are no FDA-approved or cleared tests available, and other criteria are met, FDA can make tests available under an emergency access mechanism called an Emergency Use Authorization (EUA). The EUA for this test is supported by the Raking Machine Operator of Health and Human Service's [...] mayno longer be used).Performed By: #### CVDTBH ####[facility] [address] [address]Dr. Britt Mendoza Cardiac Stress Teston 86-30-4294Xjznxkd Stress TestNoNovant Health [facility]ville Medical Center [address] [place] [address], [address], [place] [address] Exercise Stress Test Patient Name: LILIANA MICHAELS JR. Ordering Physician: [id number] Ty MD Study Date: 02/15/2022 Reading Physician: [id number] Ty MD MRN/PID: [id number] Supervising Physician: [id number] Yovani Rivera MD Accession/Order#: [id number] Referring Physician: VALENTINO TY Date of : 1965 PCP: Ishmael Simon Gender: M Fellow: Height: 162.56 cm Nurse: Yunior Bhatti RN Weight: 81.65 kg Squirrel Worker: SAEID BSA: 1.87 m2 Technologist: BMI: 30.90 kg/m2 Additional Staff: Age: 56 years cc report to: Patient Location: cc report to: [id number] Valentino Ty MD Study Type: Cardiac Stress Test Diagnosis/ICD: R94.31-Abnormal electrocardiogram [ECG] [EKG]; R00.1-Bradycardia, unspecified; R06.00-Dyspnea, unspecified Indication: Dyspnea Procedure/CPT: Stress Test Interpretation-07696; Stress Test Supervision-14338 Falls Risk: Low: Patient has low risk [...] 7. An element of chronotropic incompetency noted. [id number] Valentino Ty MD Electronically signed on 02/16/2022 at 2:52:20 PM Final NormalSt. Mary-Corwin Medical CenterCardiac Stress TestPlease click on the link to view the study [facility] Work Phone: Cardiac Stress TestKindred Healthcare Heart-[facility] 250 DO Work Phone: Office Visit (Cardiology)on 06-77-2897Gosxwi-up visit Diagnoses/Problems Assessed Sinus bradycardia (427.89) (R00.1) [...] we can help. You may also call [phone]-NOW for free resources and assistance.; Status:Complete - Retrospective Authorization; Done: 56Ngs6399 SocHx: Current smoker Continue with our present treatment plan.; Status:Complete - Retrospective Authorization; Done: 10Vkg3401 Tobacco Use Screening; Status:Complete; Done: 85Fpp5067 Patient Instructions Please bring all medicines, vitamins, [...] This led to a cardiac evaluation in [place] and its not clear to me whether [...] Oral Capsule Delayed ReleaseTAKE 1 CAPSULE Daily Nhpfjw9i at bedtime Sin (more content not included)...NormalUH TouchworksTobacco Screening.on 15-03-7151Gwxcp depression screening assessmentNoKindred Healthcare BlackDuckWind[facility] Hospital Xola DO Work Phone: Fall risk assessmenta) No falls within the last year [facility] 600 DO Work Phone: Tobacco use status CPHSa) YesSteven [facility] Xola DO Work Phone: Tobacco Screening.YesJohnson [facility] 600 DO Work Phone: [phone]-20 PCR (CVDTBH)on 55-01-1330HXMW-CoV-2 (COVID- 19) RNA KATT+probe Ql (Unsp spec)Not detectedNormalNOT DETECTEDThe [facility] on above:Result Comment: This test is not yet approved or cleared by the [place] FDA. When there are no FDA-approved or cleared tests available, and other criteria are met, FDA can make tests available under an emergency access mechanism called an Emergency Use Authorization (EUA). The EUA for this test is supported by the Bells of Health and Human Service's (HHS's) declaration [...] consistent with SARS-CoV-2.Performed By: #### CVDTB #### [facility] [address] [place], [place] [address] Dr. Britt Hylton-19 PCR ([facility])on 59-28-2693EWJO-CoV-2 (COVID-19) RNA KATT+probe Ql (Unsp spec)Not detectedNormalNOT DETECTEDThe [facility] Comment on above:Result Comment: This test is not yet approved or cleared by the [place] FDA. When there are no FDA-approved or cleared tests available, and other criteria are met, FDA can make tests available under an emergency access mechanism called an Emergency Use Authorization (EUA). The EUA for this test is supported by the Raking Machine Operator of Health and Human Service's [...] symptoms consistent with SARS-CoV-2.Performed By: #### CVDTBH ####[facility] [address] [place], [place] [address]BoDr. Britt MendozaXR CHEST 2 Von 49-92-4298TH CHEST 2 VEXAMINATION: XR CHEST 2 V [...] Electronically authenticated by: FLEX JACOBS Date: 2021-10-01 09:30Genesis HospitalAmbulatory Clinical Summaryon 82-86-0644Jughcbrbph Clinical Summary{64-v9-h3-26-77-9u-1h-64-vk-i7-w8-49-58-d2-cf-8d}CD:[id number] Clinic Akron GeneralHistorical Records Officeon 21-57-0672Vnvbkyzelf Records [id number]#1.00CD:127NoCleveland Clinic Akron GeneralPatient Educationon 67-85-1828Pvdcmsu EducationUrology Erectile Dysfunction Erectile dysfunction (ED) is [...] these instructions at home: Medicines ? Take rzdz-fan-xxgvqei and prescription medicines only as told by [...] swelling of your (more content not included)... [facility] CenterUrology Office/Clinic Noteon 34-21-2758Gfcfrvi Office/Clinic NoteChief Complaint OV for ED HPI [...] still having trouble maintaining erections and achieving twmm629% strength. discussed penile injection therapy but pt is adamantly opposed. discussed penile pump/ring and he would like to give this a try. provided brochure to order. Ordered: Office Visit Level 4 Est 28398 2. Hypogonadism male (E29.1: Testicular hypofunction) noted [...] time. Ordered: Office Visit Level 4 Est 04748 3. BPH with urinary obstruction (N40.1: Benign prostatic hyperplasia with lower urinary tract symptoms) s/p Urolift September 2018. Pt is currently taking no bladder/prostate medication and is mostly satisfiedwith overall symptom control. has nocturia but attributes this to diuretics. Pt prefers to continuewith no changes at this time. PCP checking PSAs per pt. Ordered: Office Visit Level 4 Est 97995 Orders: Urnls Dip Stick Auto w/o Microscopy POC 58182 offered f/u 1 yr but pt prefers PRN. Total time spent reviewing previous notes/results/external documents, preparing the chart, conducting the encounter with the patient and family, ordering tests/medications, and documenting the encounter was 30 minutes. Follow-up With When Contact Information ITA SLOAN, SIMONE Priest [address] [place] [address]- Additional Instructions: Patient Education Erectile [...] mcg-25 mcg inhalation powde (more content not included)...[facility] CenterComment on above:Result Comment: Electronically Signed By: DANIEL MARTINEZ, TOMEKA Muse.br\Date and Time Signed: 03/05/2112:24 EDTMRI PELVIS WO CONTRASTon 19-25-4367BQZ PELVIS WO CONTRAST [facility] Department of Radiology [address] [place] [address] Patient Name: LILIANA MICHAELS : 1965 Sex: M Age: Race: White Pt. Location: 18 Patient Status: Ordered Date: 09/10/2020 3:35:00 PM Completed Date: 10/03/2020 08:34 AM Requesting Provider: SIMONE RUIZ Attending Provider: Report Copy To: Signs & Symptoms: R10.2 Pelvic and perineal pain I10 History: Lenore, Right FOREIGN per clinic will fax [facility] auth# [id number] 09/16/20-10/17/20 cpt code 39313 *mla Comments: Right groin to r/o an [...] spine. Electronically signed: Dinh Miller. Transcribed by: [email or web address], User Resident: Electronically Signed by: DINH MILLER @ 10/03/2020 09:[address] Vincent Medical CenterComment on above:Order Comment: Right groin to r/o an adductor tear; iliopsoas bursitis or injuryOperative Reporton 30-67-8128Ylfwnupwk ReportMR#: [id number] [facility] Pt. Name: Liliana Michaels Room [...] Ruiz MD Date Trans: 09/10/2020 11:40 P/eva DN_JN:[id number] cc: Ishmael Simon M.D. [address] [place] [address]RcmsmbCawWilson HealthCoding Summary.on 04-35-1840Iuacmz Summary. CD:[id number]+PGhlYWQ+DX3BSLJnY19sqDIasH3EO0sLBU2XNIBVFHHZAM5XZP0sy NN1QNioJ6KuorIp [file] OiBj (more content not included)...NormalUpper Valley Medical CenterAuto Diffon 41-14-3614Vvnzoucfm/100 WBC (Bld)1.0 %Normal0.0-2.0[facility] Comment on above:Order Comment: Order Added by Discern Expert.Performed By: #### 43206258, 4565086, 9377204, 53844121, 5661865, 2657828, 27423048, 64458465 ####[address] [place] [address] Basophils/Leukocytes Auto (Bld) [Pure # fraction]0.1 E9/LNormal0.0-0.2FAvita Health System Bucyrus HospitalComment on above:Order Comment: Order Added by Discern Expert.Performed By: #### [id number], 9720029, 9909303, 10446519, 4973518, 5761891, 83959196, 51472581 ####[address] [place], [place] [address]Ordcbswcjgu/100 WBC (Bld)2.5 %Normal0.0-8.0[facility] Medical CenterComment on above:Order Comment: Order Added by Discern Expert.Performed By: #### 82428745, 3792350, 0732238, 84278606, 2873706, 7526552, 73818885, 35356765 ####[facility] [address] [place], [place] [address]Xfisvvvbhxf/Leukocytes Auto (Bld) [Pure # fraction] 0.3 E9/LNormal0.0-0.5FAvita Health System Bucyrus HospitalComment on above:Order Comment: Order Added by Discern Expert.Performed By: #### 93016476, 8802510, 7886485, 96392984, 6212756, 9858823, 51435497, 50645975 ####[address] [place], [place] [address]Knrlagmqwio/100 WBC (Bld)21.0 %Normal 14.0-50.0[facility] Medical CenterComment on above:Order Comment: Order Added by Discern Expert.Performed By: #### 49192331, 8217275, 9837901, 14353602, 9957620, 6973033, 72069035, 96412922 ####[place] [place], [place] [address]Naaucprxzal/Leukocytes Auto (Bld) [Pure # fraction]2.1 E9/LNormal1.0-4.0[facility] Medical CenterComment on above:Order Comment: Order Added by Discern Expert.Performed By: #### 67270562, 7946683, 4643708, 17979584, 2741553, 2655018, 18100042, 56872837 ####[address] [address]Qxybvpljf/100 WBC (Bld)6.2 %Normal4.0-14.0[facility] Medical CenterComment on above:Order Comment: Order Added by Discern Expert.Performed By: #### 24607931, 4702177, 9406709, 10384597, 7539649, 3631711, 00095360, 74012452 ####[address] [address]Xekcilwof/Leukocytes Auto (Bld) [Pure # fraction]0.6 E9/LNormal0.2-1.0[facility] Medical CenterComment on above:Order Comment: Order Added by Discern Expert.Performed By: #### 42304233, 1928034, 0528083, 72470246, 9935121, 8639584, 10708977, 21869393 ####[address] [address] Neutrophils/100 WBC (Bld)69.3 %Xljboh23.0-75.0[facility] Medical CenterComment on above:Order Comment: Order Added by Discern Expert.Performed By: #### 50591846, 0999965, 0476199, 36822138, 6325573, 4345116, 71427249, 56778390 ####[address] [place] [address] Neutrophils/Leukocytes Auto (Bld) [Pure # fraction]6.9 E9/LNormal2.0-7.5FAvita Health System Bucyrus HospitalComment on above:Order Comment: Order Added by Discern Expert.Performed By: #### 68905529, 2760687, 8556574, 79053437, 2499547, 1471737, 92299622, 51266707 ####[address] [address]EBCxh 22-93-6100Qkeubaswmw [Mass/Vol]1.1 mg/dL Normal0.5-1.3FAvita Health System Bucyrus HospitalComment on above:Performed By: #### 50817108, 5993464, 7257137, 88679051, 5274352, 9336481, 80674518, 73541298 ####[address] [address]Jnbb nitrogen [Mass/Vol]19 mg/dLNormal5-21[facility] Medical CenterComment on above:Performed By: #### 22290102, 2271413, 0736650, 33983522, 2844012, 0503653, 73408148, 09631111 ####[address] [address]Oqha nitrogen/Creatinine [Mass ratio]17 No DxptgYiqgwi50-07 [facility] CenterComment on above:Performed By: #### 17131011, 1257370, 9813026, 35875611, 3993945, 7673062, 59824228, 86671955 ####[address] [place], [place] [address]Ezwtj gap [Moles/Vol]14 mmol/LNormal6-16[facility] Medical CenterComment on above: Performed By: #### 20901914, 1236945, 1150269, 15688352, 5466371, 0984273, 80159963, 37297200 ####[facility] [address] [place], [place] [address]Hinahtb [Mass/Vol]9.4 mg/dLNormal8.9-11.1FAvita Health System Bucyrus HospitalComment on above:Performed By: #### 26875260, 5338419, 4751775, 98876454, 3023831, 7210064, 94744654, 31194296 ####[facility] [address] [place], [place] [address]Lgmvfpfx [Moles/Vol]94 mmol/LLow 101-111[facility] Medical CenterComment on above:Performed By: #### 67533174, 6155266, 2636974, 84843282, 8144798, 8451103, 57396075, 41929063 ####[facility] [address] [place], [place] [address]YX8 [Moles/Vol] 29 mmol/RYffysf84-58LckuwnUpper Valley Medical CenterComment on above:Performed By: #### 16335431, 6060927, 5922202, 17330449, 8006907, 1679736, 27686823, 71430009 ####[facility] [address] [place] [address] Glucose [Mass/Vol]103 mg/lSFiptko56-949CzagamUpper Valley Medical CenterComment on above:Result Comment: If this glucose result represents a fasting glucose, interpretation should refer tothe following reference range: 55-99 mg/dL Performed By: #### 40249519, 6777618, 8295112, 62345750, 7611018, 8916350, 82500056, 95300562 ####[facility] [address] [place], [place] [address]Iqggbvevq [Moles/Vol]4.0 mmol/LNormal3.5-5.3FAvita Health System Bucyrus HospitalComment on above:Performed By: #### 29224492, 1599323, 0431250, 29778747, 6508036, 5532388, 41730553, 19128930 ####[facility] [address] [place], [place] [address]Tyjjiv [Moles/Vol]133 mmol/LLow 135-145Upper [facility] Medical CenterComment on above:Performed By: #### 72562767, 4135962, 6376943, 78895782, 2836016, 4794127, 85208978, 66625491 ####[address] [place], [place] [address]HSGjz 08-24-2020 Natriuretic peptide B (Bld) [Mass/Vol]17 pg/mLNormal5-80[facility] CenterComment on above:Performed By: #### 31836349, 4293538, 2073168, 63598235, 3902818, 5350800, 69914944, 46366459 ####[address] [address]SYH w/ Auto Diffon 08-24-2020 Erythrocyte distribution width (RBC) [Ratio]12.9 %Rktyau30.9-14.2FAvita Health System Bucyrus HospitalComment on above:Performed By: #### 01165455, 8949001, 4487591, 86045449, 8070471, 3010237, 92009859, 89157654 ####[address] [place], [place] [address]Sxkzpvalzf (Bld) [Volume fraction] 44.4 %Abgxvl91.7-49.0[facility] Medical CenterComment on above:Performed By: #### 70441973, 3860825, 2230395, 40203303, 3339795, 7253647, 02671213, 58890683 ####[address] [place] [address] Hemoglobin (Bld) [Mass/Vol]15.3 g/iLNziytz71.5-17.5FAvita Health System Bucyrus Hospital Comment on above:Performed By: #### 74151759, 5166264, 1944959, 12297740, 1828911, 8252205, 51706886, 73692310 ####[place] [facility] [address] [place] [address]VYA (RBC) [Entitic mass]31.5 pgNormal 27.0-34.0[facility] Medical CenterComment on above:Performed By: #### 00365602, 1022970, 2111376, 19178293, 4708348, 5032227, 83795317, 06583067 ####[address] [address]SUEQ (RBC) [Mass/Vol]34.4 g/lOVeldot29.4-36.0[facility] Medical CenterComment on above:Performed By: #### 57359989, 5221897, 6859754, 57993435, 3392477, 9138816, 37072531, 00986143 ####[address] [address]YZH (RBC) [Entitic vol]91.6 sSErlonf29.0-100.0[facility] Medical CenterComment on above:Performed By: #### 67130475, 6328594, 5946886, 67226738, 2272120, 9563325, 56328108, 61531938 ####[address] [address]Toaqdjym mean volume (Bld) [Entitic vol]8.4 fLNormal6.4-10.8[facility] CenterComment on above:Performed By: #### 40459162, 1591670, 6459364, 06951222, 0377017, 6826372, 45849600, 03421685 ####[address] [address]Pwwcuamug (Bld) [#/Vol]289.0 E9/QAplzmi618.0-500.0[facility] CenterComment on above:Performed By: #### 56765569, 8151471, 8295923, 83801429, 5459867, 2319334, 22079305, 44206742 ####[facility] [address] [place], [place] [address]UYD (Bld) [#/Vol]4.8 E12/LNormal 4.3-5.9[facility] Medical CenterComment on above:Performed By: #### 48362468, 1022473, 1283146, 57292853, 9413553, 1300266, 19413795, 82832210 ####[facility] [address] [place], [place] [address]AYC corrected for nucl RBC Auto (Bld) [#/Vol]9.9 E9/LNormal4.0-11.0[facility] Comment on above:Performed By: #### 25140570, 6131023, 2186277, 20606056, 4541941, 4391178, 36553706, 33901976 ####[facility] [address] [place], [place] [address]ZDO Cheston 61-02-0412ERJ ChestExam Date/Time: 08/24/2020 01:56 EDT Reason for [...] 370 Contrast amount in ml's: 78NoCleveland Clinic Akron GeneralConsent for Treatmenton 56-70-7687Bdgzlsa for Treatment [id number]#1.00CD:127Fire[facility] Medical CenterD-Dimeron 86-72-1328Xtgbcc D-dimer FEU (PPP) [Mass/Vol]845 ng/mLAbnormal 215-500[facility] Medical CenterComment on above:Result Comment: Results Verified [...] skin infections Liver cirrhosis PregnancyPerformed By: #### 63736634, 5684159, 3787069, 74027076, 7636893, 6009073, 78104056, 38574627 ####[facility] [address] [place], [place] [address]Hxelndjxc Instructionson 77-85-3264Hrimysukx [id number]#1.00CD:127NoPrem[facility] Health [facility] Clinical Summaryon 08-01-0532HX Clinical Summary [address] [address] ED Clinical Summary Person Information Name: LILIANA MICHAELS [facility]ine[facility] Age: 55 Years : 1965 Sex: Male Language: Portuguese PCP: SIMONE JEAN BAPTISTE DC Marital Status: Single Phone: [phone] Visit Id: Visit Reason: Rib/trunk pain-swelling; SIDE [...] 08/24/2020 03:27:58 08/24/2020 03:27:58 08/24/2020 03:27:58 ADDRESS: [address] [place] [phone] PHYS DOC NOTES: MEDICAL INFORMATION: Prescriptions Given: New Medications [id number], [address], [place] [id number], [phone] azithromycin (Zithromax TRI-AMIRA 500 mg oral tablet) [...] With: Address: When: SIMONE JEAN BAPTISTE [address] [place] [address] [facility] (1) In 1 day 08/25/2020 Comments: Patient is advised to follow-up with his primary care physician in 1 to 2 days. He is also advised to come back to the emergency department if symptoms get worse. DIAGNOSIS: 1:Rib pain on left sideNoalFisher Parth Medical CenterED Note-Physicianon 10-79-4624MX Note-PhysicianBasic Information Time Seen: Pia LANE, David [...] date 08/24/20 2:30:00 EDT Rapid COVID Antigen ([facility]) Orders: albuterol-ipratropium, 3 mL, Soln-Inh, Inhalation, Once, [...] 08/24/20 0:04:00 EDT, Julian (more content not included)...[facility] Medical CenterComment on above:Result Comment: Electronically Signed By: Pia LANE, David\.br\Date and Time Signed: 08/24/20 03:10 EDTED Patient Education Noteon 16-37-6392AB Patient Education NoteChest Pain (Nonspecific) It is [...] Document Reviewed: 11/28/2008 ExitCare? Patient Information ?2015 [employer]. This information is not intended to replace advice given to you by your health care provider. Make sure you discuss any questions you have with yourhealth care provider.[facility] Patient Summaryon 13-96-0986BI Patient Summary [address] [address] Patient Discharge Instructions Person Information Name: LILIANA MICHAELS Age: 55 Years Arrival Date: 08/23/2020 23:48:11 Discharge Diagnosis: 1:Rib pain on left side Primary Care Physician: SIMONE JEAN BAPTISTE DC Provider Information Primary Provider: Pia LANE, David Advanced Millinery Teacher:None The exam and treatment you received in the Emergency Department were for an urgent problem and are not intended as complete care. It is important that you follow up with a doctor, nurse practitioner,or physician?s tmd teacher assistant for ongoing care. If your [...] Instructions: With: Address: When: SIMONE ITA [address] [place] [address] Business (1) In 1 day 08/25/2020 Comments: [...] opioids can be used to help relieve qhgscwtz-uv-vligdl pain and are often prescribed following a [...] your community drug take- back program or yournew wayside emergency hospitalGraphdive mail-back program, or flush them down the toilet, following guidance from the Food and Drug Administration (www.fda.gov/Drugs/ResourcesForYou). ? Visit www.cdc.gov/drugoverdose to learn about the risks of opioids abuse and overdose. ? If you believe you may be struggling (more content not included)...Normal [facility] CenterPT & PTTon 76-28-0630sGQE Coag (PPP) [Time]30.2 second(s)Ladnzv63.1-36.5FAvita Health System Bucyrus HospitalComment on above:Result Comment: Heparin therapeutic range (represented by Anti-Factor Xa activity of 0.2 - 0.4 U/mL) corresponds to PTT of 56.6 - 109.0 sec.Performed By: #### 33729650, 7812005, 4132714, 38092922, 0509572, 0313220, 82897850, 55252125 ####[facility] [address] [place], [place] [address]VPN Coag (PPP) [Relative time]1.0 {INR}Invalid Interpretation CodeUpper Valley Medical Center Comment on above:Result Comment: INR results are specifically intended to assess patients stabilized on long-term Anticoagulation therapy suggested INR?s ?Less Intensive Anticoagulation? 2.0 ? 3.0 Conventional Range 3.0 ? 4.5Performed By: #### 35424353, 1288418, 9788532, 84915029, 5102302, 2081791, 57380784, 34722202 ####[facility] [address] [place], [place] [address]FZ Coag (PPP) [Time]11.6 second(s) Xlqnze54.2-12.9[facility] Medical CenterComment on above:Performed By: #### 52585807, 0714831, 9900034, 65672843, 8387476, 0456081, 85143932, 49618220 ####[facility] [address] [place], [place] [address]BRI - Preliminary Cat Scan Reporton 44-32-0682CYD - Preliminary Cat Scan Report [id number]#1.00CD:127NormalUpper Valley Medical CenterRapid COVID Antigen ([facility])on 57-73-6733Crqst COV Int NEG CtlPassNormal [facility] CenterComment on above:Performed By: #### [id number] ####[facility] [address] [facility] OS[address]Vrujn COV Int POS CtlPassNormalUpper Valley Medical CenterComment on above:Performed By: #### 3992212235 ####[facility] [address] [facility], QU[address]HDWR-PxT-5 (COVID-19) RNA KATT+probe Ql (Unsp spec)Not detectedNormalNot DetectedUpper Valley Medical CenterComment on above:Result Comment: The 2 Minutes System for Rapid Detection of SARS-CoV-2 is [...] any otherviruses or pathogens; and, in the [facility], this test is only authorized for the duration of the declaration that circumstances exist justifying the authorization of emergency use of in vitro diagnostics for detection and/or diagnosis of the virus that causes COVID-19 under Section 564(b)(1) of the Act,21 U.S.C. ? 360bbb-3(b)(1), unless the authorization is terminated or revoked sooner.Performed By: #### [id number] ####[address] [place] [address], [place]Xtbofkml in Healthcare [facility] Memorial HospitalComment on above:Performed By: #### [id number] ####[address] Isabella AveNorelmira psychiatric centerk, [place] [address]Wflnb TestUnknownNMercy Health St. Vincent Medical CenterComment on above: Performed By: #### [id number] ####[address] Isabella AveNorelmira psychiatric centerk, IT[address]Zfbgjmgkxwir?[facility] Comment on above:Performed By: #### [id number] ####[address]abella AveNsaint francis [facility], ZO[address]UOONCKwgndiPndmnwOhio Valley Surgical Hospital Comment on above:Performed By: #### [id number] ####[address] [address], [place]Uqnekceb?[facility] HospitalComment on above:Performed By: #### 8511515776 ####[address] [place] AveNorwalk, [place]Vlmcheg in a Congregate Care SettingNorwalk Memorial HospitalComment on above:Performed By: #### [id number] ####[facility] [address] Isabella AveNorwalk, [place] [address]Urcaqtbiwrz as defined by [facility]ITALYESFirelands Regional Medical CenterComment on above:Performed By: #### [id number] ####[facility] [address] [place], [place]Troponin 0 Hr.on 97-85-2542Kmkrphoq I.cardiac [Mass/Vol]4.10 pg/mLLow15.90-38.40[facility] Medical CenterComment on above:Result Comment: The 95% CI (Confidence Interval) PPV (Positive Predictive Value) for myocardial infarction in females is 38 pg/mL, in males 51 pg/mL. The results should be used in conjunction with clinical conditions of myocardial infarction. (Access High Sensitivity Troponin I Instructions For Use, [employer], December 2017)Performed By: #### 27908245, 6494210, 9305502, 89781424, 0219834, 4853387, 34887621, 32210274 ####[facility] [address] [place], [place] [address]Ouyioxar 3 Hr.on 65-31-1678Bpxabyyg I.cardiac [Mass/Vol]4.40 pg/mLLow15.90-38.40[facility] Medical CenterComment on above: Result Comment: The 95% CI (Confidence Interval) PPV (Positive Predictive Value) for myocardial infarction in females is 38 pg/mL, in males 51 pg/mL. The results should be used in conjunction with clinical conditions of myocardial infarction. (Access High Sensitivity Troponin I Instructions For Use, [employer], December 2017)Performed By: #### [id number] ####[address] [place], [place] [address]BW Chest Single Viewon 49-23-2647WA Chest Single ViewExam Date/Time: 08/24/2020 01:04 EDT [...] Reis MD, V. Transcribed by: VIVIAN Technologist: BrianUpper Valley Medical CentereGFRon 95-18-0160GLV/1.73 sq M.predicted among blacks MDRD (S/P/Bld) [Vol rate/Area] mL/min/{1.73_m2}Normal>=59[facility] Medical CenterComment on above:Order Comment: Order added by Discern Expert.Result Comment: eGFR is race adjusted. AA=.Performed By: #### 91363173, 2850874, 1089652, 50636754, 9868659, 2816314, 22675062, 75591283 ####[facility] [address] [place], [place] [address]PKB/1.73 sq M.predicted among non- blacks MDRD (S/P/Bld) [Vol rate/Area]mL/min/{1.73_m2}Normal>=59[facility] Medical CenterComment on above:Order Comment: Order added by Discern Expert. Result Comment: Chronic kidney disease could be indicated at eGFR's of less than 60 mL/min/1.73m2. Kidney failure is indicated at less than 15 mL/min/1.73m2. Performed By: #### 20192624, 6717191, 4662030, 45084569, 9993775, 5197511, 94260453, 19454554 ####[facility] [place], [place] [address]HQT RIGHT 1 OR 2 VWS WITH PELVISon 71-33-8591CJF RIGHT 1 OR 2 VWS WITH PELVISUnTrinity Health System East Campus Department of Radiology [address] [place] [address] Patient Name: LILIANA MICHAELS : [...] Electronically signed: Ana M Mariee. Transcribed by: [email or web address], User Resident: Electronically Signed by: ANA M MARIEE @ 07/24/2020 10:01 AMNSumma Health Akron CampusComment on above:Order Comment: Views (X-RAY, HIP): Radiologic ProtocolHIP RIGHT 1 OR 2 VWS WITH PELVISon 69-07-7657NCG RIGHT 1 OR 2 VWS WITH PELVISUnTrinity Health System East Campus Department of Radiology [address] [place] [address] Patient Name: LILIANA MICHAELS : 1965 [...] abnormality. Electronically signed: Ed España. Transcribed by: [email or web address], User Resident: Electronically Signed by: ED ESPAÑA @ 04/25/2020 08:[address] [facility] Medical CenterComment on above:Order Comment: Views (X-RAY, HIP): Radiologic ProtocolOperative Reporton [id number] ReportMR#: [id number] [facility] Pt. Name: Liliana Michaels Room #: 6AB [id number] Discharge 03/15/2020 Date: Birthdate: 1965 OPERATIVE REPORT [...] the correct a (more content not included)...NormalThe [facility]. Vincent Medical CenterBASIC METABOLIC PANELon 68-96-3826Niqwgyp [Mass/Vol]8.8 mg/dLNormal8.6-10.3The [facility] Medical CenterComment on above:Order Comment: Views (X-RAY, HIP): Radiologic ProtocolPerformed By: #### [address] ####[facility] [place] [address], USAChloride [Moles/Vol]98 mmol/XOddvjl46-549Ydg [facility] Medical CenterComment on above:Order Comment: Views (X-RAY, HIP): Radiologic ProtocolPerformed By: #### [address] ####[facility] [place] [address], [facility] CENTERCO2 [Moles/Vol]30 mmol/L Wfogin08-64Sdm [facility] Medical CenterComment on above:Order Comment: Views (X-RAY, HIP): Radiologic ProtocolPerformed By: #### 984[address] ####[facility] [facility] [place] [address], [facility] Creatinine [Mass/Vol]0.96 mg/dLNormal0.70-1.30The [facility] Medical CenterComment on above:Order Comment: Views (X-RAY, HIP): Radiologic Protocol Performed By: #### 19507 ####[facility] [place] [place] [address], USAGFR/1.73 sq M.predicted among blacks MDRD (S/P/Bld) [Vol rate/Area]mL/min/{1.73_m2}Normal>60The [facility] Comment on above:Order Comment: Views (X-RAY, HIP): Radiologic ProtocolPerformed By: #### 41671 ####[facility] [place] [place] [address], USAGFR/1.73 sq M.predicted among non-blacks MDRD (S/P/Bld) [Vol rate/Area]mL/min/{1.73_m2}Normal>60The [facility] Comment on above:Order Comment: Views (X-RAY, HIP): Radiologic ProtocolPerformed By: #### 82218 ####[facility] [place] [place] [address], USAGlucose [Mass/Vol]151 mg/gURohp86-513Hse [facility] Medical CenterComment on above:Order Comment: Views (X-RAY, HIP): Radiologic ProtocolPerformed By: #### 31040 ####[facility] [place] [address], USAPotassium [Moles/Vol]4.4 mmol/LNormal3.5-5.[address] Vincent Medical CenterComment on above:Order Comment: Views (X- RAY, HIP): Radiologic ProtocolPerformed By: #### 32377 ####[facility] [facility] [place] [address], USASodium [Moles/Vol]133 mmol/GFpw959-256Plt [facility] Medical CenterComment on above:Order Comment: Views (X-RAY, HIP): Radiologic ProtocolPerformed By: #### 94644 ####[facility] [facility] [place] [address], [place] Urea nitrogen [Mass/Vol]20 mg/dLNormal7-25The [facility] Vincent Medical CenterComment on above:Order Comment: Views (X-RAY, HIP): Radiologic Protocol Performed By: #### 09349 ####[facility] [place] [place] [address], USACBC COMPLETE BLOOD COUNTon 15-19-9887Txbjzjoaqia distribution width (RBC) [Ratio]12.2 %Xjmfai65.5-15.0The [facility] Vincent Medical CenterComment on above:Order Comment: No: Do not add to previous draw Performed By: #### 30791 #### [facility] [address] [facility] [place] [address], USAHematocrit (Bld) [Volume fraction]42.2 %Eiwksn09.0-50.0The [facility] Vincent Medical CenterComment on above:Order Comment: No: Do not add to previous drawPerformed By: #### 52543 #### [facility] [address] [place] [address], USAHemoglobin (Bld) [Mass/Vol]13.9 g/sVVmqbyj74.0-17.0The [facility] Vincent Medical CenterComment on above:Order Comment: No: Do not add to previous drawPerformed By: #### 58925 #### [facility] [address] [place] [address], [facility] (RBC) [Entitic mass]31.4 idCsthea58.0-33.0The [facility] Vincent Medical CenterComment on above:Order Comment: No: Do not add to previous drawPerformed By: #### [id number] #### [facility] [address] [facility] [place]. [place] [id number], [facility] (RBC) [Mass/Vol]32.9 g/vFHdvrps35.0-35.0The [facility] Vincent Medical CenterComment on above:Order Comment: No: Do not add to previous drawPerformed By: #### [id number] #### [facility] [address] [facility] [address], [facility]V (RBC) [Entitic vol]95.5 zMZrhfew02.0-98.0The [facility] Vincent Medical CenterComment on above:Order Comment: No: Do not add to previous drawPerformed By: #### [id number] #### [facility] [address] [facility] [place] [address], USANucleated RBC/100 WBC (Bld) [Ratio]0 %Normal0-0The [facility] Vincent Medical CenterComment on above:Order Comment: No: Do not add to previous drawPerformed By: #### [id number] #### [facility] [address] [facility] [place] [address], USAPLAT SPQ249 10*3/tTZhuklo873-050Rfb [facility] Medical CenterComment on above:Order Comment: No: Do not add to previous draw Performed By: #### [id number] #### [facility] [address] [facility] [address], [facility]ENTERRBC (Bld) [#/Vol]4.42 10*6/uLNormal4.20-5.70The [facility] Schmidt Medical CenterComment on above:Order Comment: No: Do not add to previous drawPerformed By: #### [id number] #### [facility] [address] [place] [address], USAWBC (Bld) [#/Vol]14.44 10*3/uLHigh4.00-10.60The [facility] Vincent Medical CenterComment on above:Order Comment: No: Do not add to previous drawPerformed By: #### [id number] #### [facility] [address] [place] [id number], USAPOC GLUCOSE LABon 13-62-1072Ugvhges [Mass/Vol]193 mg/dLHigh 70-100The [facility] Vincent Medical CenterComment on above:Performed By: #### 57296 #### [facility] [address] [facility] [place] [address], USACBC W/DIFFon 53-77-6126UUM IMM GRANS0.2 10*3/uLNormal 0.0-0.2The [facility] Vincent Medical CenterComment on above:Performed By: #### 26151 ####[facility] [facility] [place] [place] [address], USAABS NEUTROPHILS8.0 10*3/uLHigh1.6-7.6The [facility] Vincent Medical CenterComment on above:Performed By: #### [id number] ####[facility] [facility] [place] [address], USABasophils (Bld) [#/Vol]0.1 10*3/uLNormal0.0-0.2The [facility] Medical CenterComment on above: Performed By: #### [id number] ####[facility] [facility] [place] [address], USABasophils/100 WBC (Bld)1.1 %High0.0-1.0The [facility] Vincent Medical CenterComment on above:Performed By: #### 71898 ####[facility] [facility] [place] [address], [facility] CENTEREosinophils (Bld) [#/Vol]0.3 10*3/uLNormal0.0-0.5The [facility] Comment on above:Performed By: #### 92009 ####[address] [place] [address], [facility] CENTEREosinophils/100 WBC (Bld)2.7 % Normal0.0-6.0The [facility] Vincent Medical CenterComment on above:Performed By: #### 79605 ####[address] [place] [address], [facility]ICAL CENTERErythrocyte distribution width (RBC) [Ratio]12.3 %Atmkbf87.5-15.[address] Vincent Medical CenterComment on above:Performed By: #### 08430 ####[address] [place] [address], [facility] Hematocrit (Bld) [Volume fraction]50.5 %High39.0-50.0The [facility] Vincent Medical CenterComment on above:Performed By: #### 10833 ####[place] [address], [facility] CENTERHemoglobin (Bld) [Mass/Vol]17.3 g/xOKker97.0-17.0The [facility] Vincent Medical CenterComment on above:Performed By: #### 74829 ####[place] [address], [facility] CENTERIMMATURE GRANS1.4 %High0.0-1.0The [facility] Vincent Medical CenterComment on above:Performed By: #### 52646 ####[place] [address], [facility] CENTERLymphocytes (Bld) [#/Vol]1.8 10*3/uLNormal1.2-4.0The [facility] Comment on above:Performed By: #### 79869 ####[facility] [facility] [place] [address], [facility] CENTERLymphocytes/100 WBC (Bld)15.6 %Low 20.0-45.0The [facility] Medical CenterComment on above:Performed By: #### 01844 ####[facility] [facility] [place] [address], [facility] (RBC) [Entitic mass]31.7 lzNdctvc40.0-33.0The [facility] Medical CenterComment on above:Performed By: #### 34275 ####[facility] [place] [place] [address], [facility] CENTERMCHC (RBC) [Mass/Vol]34.3 g/mVMitdjv08.0-35.0The [facility] Medical CenterComment on above: Performed By: #### 72167 ####[facility] [place] [address].[place] [address], [facility] CENTERMCV (RBC) [Entitic vol]92.7 bGRidyhr40.0-98.0The [facility] Medical CenterComment on above:Performed By: #### 57620 ####[facility] [place] [place] [address], [facility] Monocytes (Bld) [#/Vol]0.9 10*3/uLNormal0.1-1.0The [facility] Medical CenterComment on above:Performed By: #### 31813 ####[facility] [place] [place] [address], [facility] CENTERMONOS8.2 %Normal5.0-12.0The [facility] Medical CenterComment on above:Performed By: #### 63247 ####[facility] [place] [address].[place] [address], [facility] Neutrophils/100 WBC (Bld)71.0 %Mvylyf20.0-72.0The [facility] Medical CenterComment on above:Performed By: #### 94475 ####[facility] [place] [address], USANucleated RBC/100 WBC (Bld) [Ratio]0 %Normal0-0The [facility] Medical CenterComment on above: Performed By: #### 07318 ####[facility] [facility] [place] [address], USAPLAT [id number] 10*3/jLMhlqfq690-611Agh [facility] Medical CenterComment on above:Performed By: #### 54482 ####[facility] [facility] [place] [address], USARBC (Bld) [#/Vol] 5.45 10*6/uLNormal4.20-5.70The [facility] Medical CenterComment on above:Performed By: #### 01897 ####[facility] [place] [address], [facility] CENTERWBC (Bld) [#/Vol]11.22 10*3/uLHigh4.00-10.[address] [facility] Medical CenterComment on above:Performed By: #### 41560 ####[facility] [place] [place] [address], [facility] HIP RIGHT 1 OR 2 VWS WITH PELVISon 95-64-2870REO RIGHT 1 OR 2 VWS WITH PELVIS [facility] Department of Radiology [address] [place] [id number] Patient Name: LILIANA MICHAELS : 1965 [...] purposes Electronically signed: Aria Steinberg. Transcribed by: [email or web address], User Resident: Electronically Signed by: ARIA STEINBERG @ 03/14/2020 03:[address] Vincent Medical CenterComment on above:Order Comment: RT THAPOC GLUCOSE LABon 29-46-4510Mqobcfa [Mass/Vol]222 mg/sARsol58-350Iej [facility] CenterComment on above:Performed By: #### [id number] #### [facility] [address] [place] [address], USAGlucose [Mass/Vol]217 mg/pTPyza44-001Cbh [facility] Medical CenterComment on above:Performed By: #### 90575 ####[facility] [place] [address], USAGlucose [Mass/Vol] 141 mg/tWZhmk96-157Fdw [facility] Medical CenterComment on above: Performed By: #### 40462 #### [address] [place] [address], USAPORTABLE HIP RIGHT 1 OR 2 VWS WITH PELVISon 03-14-2020 PORTABLE HIP RIGHT 1 OR 2 VWS WITH PELVISUnTr[facility] Department of Radiology [address] [place] [phone] Patient Name: LILIANA MICHAELS : 1965 Sex: [...] air Electronically signed: Aria Steinberg. Transcribed by: [email or web address], User Resident: Electronically Signed by: ARIA STEINBERG @ 03/14/2020 03:[address] [facility] Medical CenterComment on above:Order Comment: Hardware Evaluation, AP/LateralTYPE AND SCREENon [id number] INTERPRETATIONONoAshtabula County Medical CenterComment on above:Performed By: #### 14415 ####[facility] [facility].[address] RH INTERPRETATIONPositiveNoAshtabula County Medical CenterComment on above:Performed By: #### 22406 ####[facility] [facility].[address] Vital Signs Date TimeVital SignValuePerforming RrsionrnkEnncalvv45-17-0889 08:41-0400Body dszyow818.6 cmIshmael Simon MD Work Phone: [facility] JosephRfeqzawxqn36-39-4782 08:41-0400Body mass index (BMI) [Ratio]38.28 kg/m2Ishmael Simon MD Work Phone: [facility] JosephItfaanntqs66-60-7299 08:41-0400Body temperature 97.5 [degF]Ishmael Simon MD Work Phone: [facility] JosephEttvarjvhj54-03-9189 08:41-0400Body tzojop714.15 kgIshmael Simon MD Work Phone: [facility] JosephAajxizwjrg37-89-4057 08:41-0400Diastolic blood mm[Hg]Ishmael Simon MD Work Phone: noSt. Louis [facility] InstituteIkzzvjrdov49-40-0580 08:41-0400Heart rate89 /min Ishmael Simon MD Work Phone: [place] [address]Qzsqbmbpil01-26-7989 08:41-0400Respiratory rate18 /minIshmael Simon MD Work Phone: [place] [address]Fqgpmwuxiw06-30-6091 08:41-9146CjV1% (BldA) [Mass fraction]94 %Ishmael Simon MD Work Phone: [facility] JosephFwjoeqomov18-08-4187 08:41-0400Systolic blood mm[Hg]Ishmael Simon MD Work Phone: [facility] JosephQdipkadkka04-53-6154 09:04-0400Body yfjkek141.6 cmAregina Son MD Work Phone: 1([phone] [place], [place] 3317207-23-2025 09:04-0400 Body mass index (BMI) [Ratio]38.62 kg/j5GksamvpAmador Son MD Work Phone: 1(517)[address]07-23-2025 09:04-0400 Body iubuvn312.06 kgAmador Son MD Work Phone: 1(091)[address]07-23-2025 09:04-0400 Diastolic blood kbcqiare07 mm[Hg]Amador Son MD Work Phone: 1(159)[address]07-23-2025 09:04-0400 Heart rate65 /minAmador Son MD Work Phone: 1(313)861-[address] [place], [place] [address]207-23-2025 09:04-0400 Systolic blood grtmdvuk004 mm[Hg]Amador Son MD Work Phone: 1(466)[address]06-17-2025 09:20-0400 Body bbnywj876.6 cmIshmael Simon MD Work Phone: [facility] JosephZwahzshjzt24-24-3641 09:20-0400Body mass index (BMI) [Ratio]39.31 kg/m2Ishmael Simon MD Work Phone: [facility] JosephYywxafopbp68-40-9779 09:20-0400Body temperature 97.5 [degF]Ishmael Simon MD Work Phone: [facility] JosephTywasbheci02-78-3140 09:20-0400Body ykzgzp380.87 kgIshmael Simon MD Work Phone: [facility] JosephCcbazrhwra04-87-5191 09:20-0400Diastolic blood mm[Hg]Ishmael Simon MD Work Phone: noSt. Louis Behavior[facility] Medicine InstituteGktqdisvuq05-00-9003 09:20-0400Heart rate88 /min Ishmael Simon MD Work Phone: [facility] JosephCnbmqmgclx91-50-8142 09:20-0400Respiratory rate18 /minIshmael Simon MD Work Phone: [facility] JosephQprckcrpkx70-86-5166 09:20-4238NmA4% (BldA) [Mass fraction]92 %Ishmael Simon MD Work Phone: [facility] JosephPoagplaljb28-35-4087 09:20-0400Systolic blood mm[Hg]Ishmael Simon MD Work Phone: [facility] JosephDesqocwzmh00-05-8126 10:20-0400Body .6 cmIshmael Simon MD Work Phone: [facility] JosephDjjzxhmtcz27-87-5805 10:20-0400Body mass index (BMI) [Ratio]38.11 kg/m2Ishmael Simon MD Work Phone: [facility] JosephPlpohnmjyb64-59-7712 10:20-0400Body temperature 97.5 [degF]Ishmael Simon MD Work Phone: [facility] JosephQkjzorkrwu59-16-8038 10:20-0400Body fhmrxo970.7 kgIshmael Simon MD Work Phone: [facility] JosephOzyiceyron49-17-3276 10:20-0400Diastolic blood dfmmcpat51 mm[Hg]Ishmael Simon MD Work Phone: [facility] JosephBiytjapqho57-45-9865 10:20-0400Heart rate82 /min Ishmael Simon MD Work Phone: [facility] JosephSfvznaljbs25-93-7924 10:20-0400Respiratory rate20 /minIshmael Simon MD Work Phone: [facility] JosephPkgmieqhgh45-93-9220 10:20-0474ZgB4% (BldA) [Mass fraction]93 %Ishmael Simon MD Work Phone: [facility] JosephOktcrdtqan68-44-3436 10:20-0400Systolic blood glbjgqju228 mm[Hg]Ishmael Simon MD Work Phone: [facility] JosephXbprrymvzv25-34-1355 09:07-0500Body ibkgax601.6 cmValentino Ty MD Work Phone: 1(793)[address]02-05-2025 09:07-0500 Body mass index (BMI) [Ratio]36.39 kg/b4MyosfdjValentino Ty MD Work Phone: 1(300)[address]02-05-2025 09:07-0500 Body yjbotg19.16 kgValentino Ty MD Work Phone: 1(485)[address]02-05-2025 09:07-0500 Diastolic blood nwfwhaxz26 mm[Hg]Valentino Ty MD Work Phone: 1(903)[address]02-05-2025 09:07-0500 Heart rate80 /minValentino Ty MD Work Phone: 1(552)[address]02-05-2025 09:07-0500 Systolic blood wzbmnipt071 mm[Hg]Valentino Ty MD Work Phone: 1(382)[address]01-29-2025 09:47-0500 Body sxojts390.6 cmIshmael Simon MD Work Phone: [facility] JosephGmahldrahg63-31-6072 09:47-0500Body mass index (BMI) [Ratio]36.56 kg/m2Ishmael Simon MD Work Phone: [facility] JosephTxhcmpsrgx21-91-6068 09:47-0500Body temperature 97.81 [degF]Ishmael Simon MD Work Phone: [facility] JosephDhwdiwlchj78-77-1445 09:47-0500Body treewg49.62 kgIshmael Simon MD Work Phone: [facility] JosephRkilqleluk17-41-4390 09:47-0500Diastolic blood ujrtpijh34 mm[Hg]Ishmael Simon MD Work Phone: [facility] JosephToquupgrxl30-96-9319 09:47-0500Heart rate85 /min Ishmael Simon MD Work Phone: [facility] JosephDbdsnkgeem93-34-0066 09:47-0500Respiratory rate22 /minIshmael Simon MD Work Phone: [facility] JosephGkyrvrtasa38-50-3845 09:47-1612CdR1% (BldA) [Mass fraction]92 %Ishmael Simon MD Work Phone: [facility] JosephJmqkmgccfk78-77-0799 09:47-0500Systolic blood nrbifbmw647 mm[Hg]Ishmael Simon MD Work Phone: 1(953)493-[address] [place], [place] [address]Dvjrjugdtf46-38-0779 08:30-0500Body .6 cmAregina Son MD Work Phone: 1(692)546-[address] [place], [place] 3317201-15-2025 08:30-0500 Body mass index (BMI) [Ratio]37.76 kg/e7FooslssAmador Son MD Work Phone: 1(991)957-[address] [place], [place] 3317201-15-2025 08:30-0500 Body nciwxk52.79 kgAmador Son MD Work Phone: 1(788)[address]01-15-2025 08:30-0500 Diastolic blood mnnuaivr47 mm[Hg]Amador Son MD Work Phone: 1(744)439-[address] [place], [place] 3317201-15-2025 08:30-0500 Heart rate74 /minAmador Son MD Work Phone: 1(591)135-[address] [place], [place] [address]201-15-2025 08:30-0500 Systolic blood uocljwzg300 mm[Hg]Amador Son MD Work Phone: 1(103)15619 [address]12-17-2024 11:05-0500 Body .6 cmIshmael Simon MD Work Phone: 1(931)38350[address] [place], [place] [address]Rzquctwxcl96-75-4308 11:05-0500Body mass index (BMI) [Ratio]37.76 kg/m2Ishmael Simon MD Work Phone: [facility] JosephSsrzzqqlhk59-27-6876 11:05-0500Body temperature 97.81 [degF]Ishmael Simon MD Work Phone: 1(101)552-[address] [place], [place] [address]Swgyhyosyh63-88-8278 11:05-0500Body zsorru02.79 kgIshmael Simon MD Work Phone: 1(070)[facility] [place], [place] [address]Gjxlfqyzrh33-45-9902 11:05-0500Diastolic blood vskomfww22 mm[Hg]Ishmael Simon MD Work Phone: 1(445)[address] [place], [place] 4980512-17-2024 11:05-0500Heart rate88 /min Ishmael Simon MD Work Phone: 1(190)[address] [place], [place] [address]Nftoaxngpw26-63-7671 11:05-0500Respiratory rate18 /minIshmael Simon MD Work Phone: 1(635)[facility] [place], [place] [address]Hqforhqycz54-68-1044 11:05-9805LqK0% (BldA) [Mass fraction]95 %Ishmael Simon MD Work Phone: 1(552)890-[address] [place], [place] [address]Pcsnxcvmjs69-04-9244 11:05-0500Systolic blood lkulzheq518 mm[Hg]Ishmael Simon MD Work Phone: [facility] JosephUrgfpjqvxc13-50-1824 13:14-0400Body leufmc745.6 cmIshmael Simon MD Work Phone: 1([phone] [place], [place] [address]Lqnedbhxmx69-36-8421 13:14-0400Body mass index (BMI) [Ratio]37.25 kg/m2Ishmael Simon MD Work Phone: [facility] JosephOxytmxaaef34-01-0396 13:14-0400Body temperature 97.5 [degF]Ishmael Simon MD Work Phone: [facility] JosephLxhklbsiaa80-38-3458 13:14-0400Body djenfi43.43 kgIshmael Simon MD Work Phone: 1(015)516-[address] [place], [place] [address]Rigetebhjx26-20-9520 13:14-0400Diastolic blood wxxqofzh49 mm[Hg]Ishmael Simon MD Work Phone: [facility] JosephYgznzcswbg15-02-5301 13:14-0400Heart rate84 /min Ishmael Simon MD Work Phone: [facility] JosephRwjwzpqavl71-52-9516 13:14-0400Respiratory rate20 /minIshmael Simon MD Work Phone: [facility] JosephYnzvkifyfv37-55-8255 13:14-0533KfK1% (BldA) [Mass fraction]97 %Ishmael Simon MD Work Phone: [facility] JosephEscxigeaac51-85-2773 13:14-0400Systolic blood vxjeuhvb511 mm[Hg]Ishmael Simon MD Work Phone: [facility] JosephWriveiekri09-44-6629 09:29-0400Body qsotzi422.6 cmIshmael Simon MD Work Phone: [facility] JosephCfetvnttee14-82-7315 09:29-0400Body mass index (BMI) [Ratio]36.39 kg/m2Ishmael Simon MD Work Phone: [facility] JosephIashxpgktn69-32-5210 09:29-0400Body temperature 97.5 [degF]Ishmael Simon MD Work Phone: [facility] JosephUnezokrwea09-88-2374 09:29-0400Body .16 kgIshmael Simon MD Work Phone: [facility] JosephOvchuezzod87-52-7861 09:29-0400Diastolic blood lxgumurr24 mm[Hg]Ishmael Simon MD Work Phone: [facility] JosephEfpfqccfyz96-83-6311 09:29-0400Heart rate91 /min Ishmael Simon MD Work Phone: [facility] JosephRltxatbukj04-13-7244 09:29-0400Respiratory rate18 /minIshmael Simon MD Work Phone: [facility] JosephPnrmznzhxs90-85-4702 09:29-1888XeL6% (BldA) [Mass fraction]97 %Ishmael Simon MD Work Phone: [facility] JosephPdzlixtgwg34-57-8602 09:29-0400Systolic blood inbsbedm556 mm[Hg]Ishmael Simon MD Work Phone: [facility] JosephPovppyonfl23-60-8286 09:57-0400Body .6 cmMiccasey Woodards DO Work Phone: [facility]07-31-2024 09:57-0400Body mass index (BMI) [Ratio]35.87 kg/l7Pqevoaz Grillis DO Work Phone: [facility]07-31-2024 09:57-0400Body ujlxhp14.8 kgMiccasey Mccormackillis DO Work Phone: [facility]07-31-2024 09:57-0400Diastolic blood wgjopmdk73 mm[Hg]Roc Ramsey DO Work Phone: [facility]07-31-2024 09:57-0400Systolic blood darcfxhy097 mm[Hg]Roc Ramsey DO Work Phone: [facility]07-03-2024 10:10-0400Body hahqwm622.6 cmTria Wright 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 Work Phone: [facility]07-03-2024 10:10-0400 Body mass index (BMI) [Ratio]35.27 kg/y3BnqcnNaima Wright [employer] 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 Work Phone: [facility]07-03-2024 10:10-0400 Body zlpsof59.21 kgNaima Wright [employer] 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 Work Phone: [facility]07-03-2024 10:10-0400 Diastolic blood emuuifri72 mm[Hg]Naima Wright 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 Work Phone: [facility]07-03-2024 10:10-0400 Heart rate68 /minNaima Wright 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 Work Phone: 1([phone] [place], [place] 4428507-03-2024 10:10-0400 Systolic blood tqiipgej32 mm[Hg]Naima Adriana [employer] 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 Work Phone: 1(575)[address]04-03-2024 13:31-0400 Body vutmkr761.6 cmAregina Son MD Work Phone: 1(294)[address]04-03-2024 13:31-0400 Body mass index (BMI) [Ratio]34.67 kg/k9VprbegaAmador Son MD Work Phone: 1(280)[address]04-03-2024 13:31-0400 Body nnfyjy27.63 kgAmador Son MD Work Phone: 1(054)[address]04-03-2024 13:31-0400 Diastolic blood oyvugwmg75 mm[Hg]Amador Son MD Work Phone: 1(690)[address] [place], [place] 3317204-03-2024 13:31-0400 Heart rate69 /Delfina Son MD Work Phone: 1(756)[address]04-03-2024 13:31-0400 Systolic blood gxvxqlzo381 mm[Hg]Amador Son MD Work Phone: 1(238)[address]03-29-2024 17:30-0400 Diastolic blood pmlsjqci92 mm[Hg]Amador Son MD Work Phone: 1(369)[address] [place], [place] 3317203-29-2024 17:30-0400 Heart rate60 /Delfina Son MD Work Phone: 1(943)[address] [place], [place] 3317203-29-2024 17:30-0400 Respiratory rate16 /Delfina Son MD Work Phone: 1(391)[address]03-29-2024 17:30-0400 SaO2% (BldA) [Mass fraction]96 %Amador Son MD Work Phone: 1(059)[address] [place], [place] 3317203-29-2024 17:30-0400 Systolic blood cnwntdlu388 mm[Hg]Amador Son MD Work Phone: 1(428)[address]03-29-2024 12:13-0400 Body .6 Royer Son MD Work Phone: 1(567)[address]03-29-2024 12:13-0400 Body mass index (BMI) [Ratio]34.17 kg/a8LegpxizAmador Son MD Work Phone: 1(551)[address]03-29-2024 12:13-0400 Body hysdiyugtvd80.5 [degF]Amador Son MD Work Phone: 1(050)[address]03-29-2024 12:13-0400 Body colesa84.3 kgAmador oSn MD Work Phone: 1(737)[address]03-15-2024 14:38-0400 Body .6 Royer Son MD Work Phone: 1(905)[address]03-15-2024 14:38-0400 Body mass index (BMI) [Ratio]34.33 kg/v1JaneupdAmador Son MD Work Phone: 1(157)[address]03-15-2024 14:38-0400 Body wedlbi79.72 kgAmador Son MD Work Phone: 1(110)[address]03-15-2024 14:38-0400 Diastolic blood zvemmwdz89 mm[Hg]Amador Son MD Work Phone: 1(246)[address]03-15-2024 14:38-0400 Heart rate41 /minAmador Son MD Work Phone: 1(916)[address]03-15-2024 14:38-0400 Systolic blood rmmpyrqj546 mm[Hg]Amador Son MD Work Phone: [phone])41419 [address]03-08-2023 10:57-0500 Body svmyxs680.56 cmDign[facility] Butch Carterr Work Phone: 1(584) 449-5717867-5879YQ-YuydgM [facility] 600 DO Work Phone: 1(563) 724-739603-08-2023 10:57-0500Body mass index (BMI) [Ratio] 32.96 kg/m2Marc A TerraWierer Work Phone: [id number]-IcmvqEly-[facility]walk 600 DO Work Phone: 1(844)393-[phone] 10:57-0500Body surface area Derived from formula1.92 m2Marc A HeTextedr Work Phone: mp364-5981SN-NgpzqEly-[facility] 600 DO Work Phone: 1(406) 927-293003-08-2023 10:57-0500Body lyvwwq40.09 kgMarc A HeTextedr Work Phone: mp292-5766ZK-XypqcSt. [facility] 600 DO Work Phone: 1(445) 173-753003-08-2023 10:57-0500Diastolic blood qbasbciq71 mm[Hg] Ishmael A HeTextedr Work Phone: mp785-5596VR-[facility]cezhBuffalo [facility] 600 DO Work Phone: 1(429)[phone] 10:57-0500Heart rate34 /minMarc A HeTextedr Work Phone: mp689-7722GX-TphfaBuffalo Hospital 600 DO Work Phone: 1(226) 118-402503-08-2023 10:57-0500Systolic blood mm[Hg] Ishmael A HeTextedr Work Phone: mp270-1271PV-IbpwqBuffalo Hospital 600 DO Work Phone: 1(404) 744-415509-22-2022 09:37-0400Body uomthp454.56 cmMarc A Naderer Work Phone: [id number]-GskyjDeer River [facility] Care Centerwalk 600 DO Work Phone: 1(943) 460-737009-22-2022 09:37-0400Body mass index (BMI) [Ratio]30.9 kg/m2Marc A TerraWierer Work Phone: [id number]-Bequx [facility] 600 DO Work Phone: 1(851) 649-127709-22-2022 09:37-0400Body surface area Derived from formula1.87 m2Marc A Naderer Work Phone: mp255-3778GC-Glfis [facility] 600 DO Work Phone: 1(820) 856-317909-22-2022 09:37-0400Body rmwagk80.65 kgMarc A Naderer Work Phone: [id number]-Pyztk [facility] 600 DO Work Phone: 1(224) 108-946309-22-2022 09:37-0400Diastolic blood gdicmewq55 mm[Hg] Ishmael Butch Naderer Work Phone: mp307-6966XS-Hxfdc [facility] 600 DO Work Phone: 1(970) 413-221209-22-2022 09:37-0400Heart rate41 /minMarc A Naderer Work Phone: [phone]-Hzgbr [place] [facility] [address] DO Work Phone: [phone] 568-944409-22-2022 09:37-0400Systolic blood mm[Hg] Ishmael Butch Naderer Work Phone: [phone]-Glehp [facility] 600 DO Work Phone: Encounters Encounter DateEncounter TypeCare ProviderFacilityStart: 03-07-2025 End: 13-20-0587Nhayghwsdt hospital visit by physicianEly Device [facility] CenterComment on above:Cardiac pacemaker in situStart: 03-07-2025 End: 24-24-0709xoucvrvrbhETXQKNAGood Samaritan Hospitaltart: 02-11-2025 End: 67-62-1732lffmjvslylICYXKAEBOhioHealth Shelby Hospitaltart: 02-11-2025 End: 25-89-4962wauojlwfmeVZDETVMQTriHealthtart: 02-05-2025 End: 15-30-2298rixcoaspmgSWOCBLILOhioHealth Shelby Hospitaltart: 12-24-2024 End: 00-70-1955Zviwzn Jarred Simon MD Work Phone: noms CWM FMStart: 12-24-2024 End: 12-34-1169Kbdwjfoniel Simon MD Work Phone: noms CWM FMStart: 12-24-2024 End: 25-59-6461Demzoz outpatient visit 25 minutesIshmael Simon MD Work Phone: noms CWM FMComment on above:Type 2 diabetes mellitus with hyperglycemia, without long-term current use of insulin (HCC) (Primary Dx); Essential hypertension, benign ; Degeneration of intervertebral disc of lumbar region with discogenic back pain and lower extremity pain; Chronic diastolic heart failure (HCC)Start: 12-24-2024 End: 66-19-3818xdmutuhezoAWOO NADERERNot AvailableStart: 12-17-2024 End: 77-43-6594KbsiqwRpoc Naderer MD Work Phone: noms CWM FMComment on above:Degeneration of lumbar intervertebral discStart: 11-28-2024 End: 66-80-6480Bupxuw outpatient visit 25 minutesAmador Son MD Work Phone: [facility] CenterComment on above:Cardiac pacemaker in situ (Primary Dx); Chronotropic incompetence; Sick sinus syndrome (Multi); Essential hypertension, benign; Pacemaker; Sinus bradycardia; Former smoker; BMI 38.0-38.9,adultStart: 11-28-2024 End: 77-38-2059vszygydhrtFDOGXLY N [facility] AmbulatoryStart: 11-28-2024 End: 67-13-7548Bqvifamqvt hospital visit by physicianEly [facility] [address] [facility] CenterComment on above:Cardiac pacemaker in situStart: 11-15-2024 End: 41-60-0501LaepciOapn Naderer MD Work Phone: noms CWM FMComment on above:Degeneration of lumbar intervertebral discStart: 11-05-2024 End: 79-59-1892aagvluoziiGecocpxJessica Reyes MDFacility:PM Darryl Start: 10-23-2024 End: 63-99-8587Nlxmwu Jarred Simon MD Work Phone: NOMS CWM FMStart: 10-23-2024 End: 63-51-0833Hddnno flowsDanny Simon MD Work Phone: NOMP CWM FMStart: 10-23-2024 End: 06-55-6040Ephpazkus Result EncounterIshmael Simon MD Work Phone: NOOW External Department UnsolicitedStart: 10-23-2024 End: 54-18-9844Cbyshe outpatient visit 25 minutesIshmael Simon MD Work [...] index (BMI) of39.0 to 39.9 in adult ([facility]-HCC); Encounter for long-term (current) use of medications; Screening PSA (prostate specific antigen); Vitamin D insufficiency; DyslipidemiaStart: 10-23-2024 End: 46-39-1920wakvyzmvjnFTGI NADERERNot AvailableStart: 10-18-2024 End: 67-02-6449ErbavfYwpu Naderer MD Work Phone: N[facility]S CWM FMComment on above:Degeneration of lumbar intervertebral discStart: 09-19-2024 End: 51-99-4004IpobzyFxwc Naderer MD Work Phone: N[facility]S CWM FMComment on above:Degeneration of lumbar intervertebral discStart: 08-29-2024 End: 34-03-4258IprmuuZxse Naderer MD Work Phone: [phone] CWM FMComment on above:Carpal tunnel syndrome, bilateral upper limbs; Carpal tunnel syndromeStart: 08-28-2024 End: 87-66-1437hpxrwyxwcbBEXBXZFGood Samaritan Hospitaltart: 08-28-2024 End: 27-37-0823Szlzpgilrf hospital visit by physicianEly Device RemoteSt. Mary-Corwin Medical CenterComment on above:Cardiac pacemaker in situStart: 08-22-2024 End: 46-55-9787WhxmcwLmlb Naderer MD Work Phone: noms CWM FMComment on above:Degeneration of lumbar intervertebral discStart: 08-09-2024 End: 75-88-5769Dftlhpanj Result EncounterGeneric External Data ProviderNOMS External Department UnsolicitedStart: 08-09-2024 End: 52-23-5110Oyynhgwxp Result EncounterGeneric External Data ProviderNOMS External Department UnsolicitedStart: 08-06-2024 End: 92-36-7328gxiqjqackzHrzxwca Vytautas Giedraitis MDFacility:PM Jericho Start: 07-23-2024 End: 77-84-3247Azqfnb outpatient visit 25 minutesIshmael Simon MD Work [...] Degeneration of lumbar intervertebral discStart: 07-23-2024 End: 89-16-1292ktdwaxnlhyTOBB NADERERNot AvailableStart: 06-26-2024 End: 12-52-5331RnzateJjay Naderer MD Work Phone: noms CW FMComment on above:Degeneration of lumbar intervertebral discStart: 06-14-2024 End: 02-09-8565Dmmuvelew Result EncounterGeneric External Data ProviderNOMS External Department UnsolicitedStart: 06-14-2024 End: 67-46-0116Hfpsjfgzc Result EncounterGeneric External Data ProviderNOMS External Department UnsolicitedStart: 06-13-2024 End: 26-25-4761Hwepoz outpatient visit 25 minutesValentino Ty MD Work Phone: [facility] HospitalComment on above:Sick sinus syndrome (Multi) (Primary Dx); Chronotropic incompetence; Peripheral vascular disease, unspecified (CMS-HCC); Pacemaker; Essential hypertension, benign; Sinus bradycardia; Hyperlipidemia, unspecified hyperlipidemia type; Dyspnea on exertion; BMI 37.0-37.9, adult; Former smoker; Mild coronary artery diseaseStart: 06-13-2024 End: 47-74-7154mchvzmlxpiZNXDHNLEd [facility] AmbulatoryStart: 06-06-2024 End: 69-37-1267Qptliqoniel Simon MD Work Phone: noms CW FMStart: 06-06-2024 End: 91-39-9054Qexofgoniel Simon MD Work Phone: noms CW FMStart: 06-06-2024 End: 99-91-4835Zbqzcc outpatient visit 15 minutesIshmael Simon MD Work Phone: noms CW FMComment on above:Chronic obstructive pulmonary disease with acute exacerbation (CMS/HCC) (Primary Dx); Chronic hypoxic respiratory failure (CMS/HCC); Class 2 severe obesity due to excess calories with serious comorbidity and body mass index (BMI) of36.0 to 36.9 in adult (CMS/HCC); Essential hypertension, benign (CMS/HCC)Start: 06-06-2024 End: 32-08-7319bkbdppvxbeOTYB NADERERNot AvailableStart: 05-29-2024 End: 83-31-2896FecjhyEwcw Naderer MD Work Phone: NOMS CWM FMComment on above:Degeneration of lumbar intervertebral discStart: 05-28-2024 End: 98-74-8268AbymlxDrfu Howard MANOMS CWM FMComment on above:Degeneration of lumbar intervertebral discStart: 05-27-2024 End: 32-60-4490Wmtsiqnps Result EncounterGeneric External Data ProviderNOMS External Department UnsolicitedStart: 05-27-2024 End: 45-05-8626Shjtowbqf Result EncounterGeneric External Data ProviderNOMS External Department UnsolicitedStart: 05-23-2024 End: 48-30-5821Mcpooc outpatient visit 25 minutesAmador Son MD Work Phone: [facility] CenterComment on above:Cardiac pacemaker in situ (Primary Dx); Sick sinus syndrome (Multi); MRI safe cardiac pacemaker in situ; Abnormal EKG; Chronotropic incompetence; Sinoatrial node dysfunction (Multi); Sinus bradycardia; Current smoker; BMI 37.0-37.9, adultStart: 05-23-2024 End: 79-89-0052Iwkxiccyni hospital visit by physicianEly [facility] Device [facility] [address] [place], [place] [address]Comment on above:Sinus bradycardia; Sick sinus syndrome (Multi); Chronotropic incompetence; MRI safe cardiac pacemaker in situStart: 05-23-2024 End: 70-40-6198nadkfejrdxUPZDXXY N DIAZSalem City Hospital AmbulatoryStart: 04-27-2024 End: 86-40-4099LunuasQcxy Naderer MD Work Phone: NOMS CWM FMComment on above:Degeneration of lumbar intervertebral discStart: 04-24-2024 End: 27-61-2195Tqbdtqoniel Simon MD Work Phone: NOMS CWM FMStart: 04-24-2024 End: 02-37-5963Scktanoniel Simon MD Work Phone: TOMO CWM FMStart: 04-24-2024 End: 47-41-8296Bgjbjbadf Result EncounterIshmael Simon MD Work Phone: noms External Department UnsolicitedStart: 04-24-2024 End: 07-04-2900Gejhycp encounter procedureIshmael Simon MD Work Phone: [facility] Work Phone: Start: 04-24-2024 End: 45-14-6810Xdxdto follow up visit related to original Kesha Simon MD Work Phone: noms CWM FMComment on above:Medicare annual wellness visit, subsequent (Primary Dx); Type 2 diabetes mellitus with hyperglycemia, without long-term current use of insulin (CMS/HCC); Essential hypertension, benign (CMS/HCC); Class 2 severe obesity due to excess calories with serious comorbidity and body mass index (BMI) of37.0 to 37.9 in adult (CMS/HCC)Start: 04-24-2024 End: 89-33-6555ktbwtfzgffGPFM NADERERNot AvailableStart: 04-16-2024 End: 98-73-5794bfwhheprjqZitpvanJessica Reyes MDFacility:PM Darryl Start: 03-30-2024 End: 43-91-5063OlotfeLzxa Naderer MD Work Phone: noms CWM FMComment on above:Degeneration of lumbar intervertebral discStart: 03-27-2024 End: 39-36-9480Trnrrbj encounter procedureIshmael Simon MD Work Phone: [facility] [employer] Work Phone: Start: 03-27-2024 End: 98-62-1677dtqyrdqiemGoqw Naderer MD Work Phone: [facility] Work Phone: Start: 03-16-2024 End: 82-91-0712uaehdyleluIjyg E GantzFacility:[facility] Start: 20-83-0426Viy-patient / Non-visitAtrium Health Cabarrus [facility]ician [facility]-Heart Rhythm ClinicStart: 03-01-2024 End: 69-48-1256SuyakuFfpa Naderer MD Work Phone: NOMS CWM FMComment on above:Degeneration of lumbar intervertebral discStart: 02-14-2024 End: 11-91-5806Fphvbmczul hospital visit by physicianEly Device [facility] CenterComment on above:Cardiac pacemaker in situ; Sinoatrial node dysfunction (Multi)Start: 02-06-2024 End: 37-29-0751Oasiah Jarred Simon MD Work Phone: NOHV CWM FMStart: 02-06-2024 End: 76-07-6754Wckung Jarred Simon MD Work Phone: noms CWM FMStart: 02-06-2024 End: 09-64-4047Vbvilunux Result Austin Simon MD Work Phone: noms External Department UnsolicitedStart: 02-06-2024 End: 64-28-7813oirdcizbswDKSH NADERERNot AvailableStart: 02-06-2024 End: 94-07-4473Vlxtox outpatient visit 15 minutesIshmael Simon MD Work Phone: noms CWM FMComment on above:Dysuria (Primary Dx); Acute prostatitis; PyuriaStart: 02-02-2024 End: 05-31-2675WbxpohXjre Naderer MD Work Phone: N[facility] CWM FMComment on above:Other intervertebral disc degeneration, lumbar region; Degeneration of lumbar or lumbosacral intervertebral discStart: 01-27-2024 End: 71-59-0150FyizirCddo Naderer MD Work Phone: NOGK CWM FMComment on above:Degeneration of lumbar intervertebral discStart: 01-25-2024 End: 98-85-0949Vttqmujzkc hospital visit by physicianEly Device [facility] CenterComment on above:Cardiac pacemaker in situ; Sinoatrial node dysfunction (Multi)Start: 01-13-2024 End: 75-94-4779Dzkmfioniel Simon MD Work Phone: noms CWM FMStart: 01-13-2024 End: 57-01-7827Tqvqokoniel Simon MD Work Phone: noms CWM FMStart: 01-13-2024 End: 38-38-2337Ofxpil outpatient visit 25 minutesIshmael Simon MD Work Phone: noms CWM FMComment on above:Type 2 diabetes mellitus with hyperglycemia, without long-term current use of insulin (CMS/HCC) (Primary Dx); Essential hypertension, benign (CMS/HCC); Chronic diastolic heart failure (CMS/HCC); Chronic obstructive pulmonary disease, unspecified COPD type (CMS/[facility]); DDD (degenerative disc disease), lumbar; Primary osteoarthritis of right hip; Body mass index (BMI) 35.0-35.9, adultStart: 01-13-2024 End: 83-22-0966ckwggpzbxzJIXA NADERERNot AvailableStart: 12-30-2023 End: 30-37-6632PxwbedUgvo Naderer MD Work Phone: noms CWM FMComment on above:Degeneration of lumbar intervertebral discStart: 12-26-2023 End: 05-54-9121Hbdbhlvwu encounterSheri Chau [facility] General SurgeryStart: 12-14-2023 End: 66-62-9743Mkmvxp Fabián Chau [facility] Comment on above:Claudication ([facility]-HCC) (Primary Dx)Start: 12-07-2023 End: 88-77-7353Mnbgrw outpatient visit 25 minutesRoc Ramsey DO Work Phone: [facility] Physicians General SurgeryComment on above: Right leg pain (Primary Dx); Tobacco abuse; Class 3 severe obesity due to excess calories with serious comorbidity in adult, unspecified BMI (CMS-HCC); Left inguinal hernia; Claudication (CMS-HCC)Start: 11-09-2023 End: 24-01-0602Iwkiusqpa Result EncounterGeneric External Data ProviderNOMS External Department UnsolicitedStart: 11-09-2023 End: 25-63-4538Lgvfqoyhz Result EncounterGeneric External Data ProviderNOMS External Department UnsolicitedStart: 11-09-2023 End: 59-34-5921Yszpme outpatient visit 40 minutesNaima MURILLO Work Phone: [facility] CenterComment on above:MRI safe cardiac pacemaker in situ (Primary Dx); Sinus bradycardia; Sick sinus syndrome (Multi); Chronotropic incompetence; Chronic diastolic heart failure (Multi); Essential hypertension, benign; Peripheral vascular disease, unspecified ([facility]); Chronic obstructive pulmonary disease, unspecified COPD type ([facility]); Dyspnea on exertion; Obstructive sleep apnea (adult) (pediatric); Current smokerStart: 11-09-2023 End: 27-78-7911Xfvqdlrqkb hospital visit by Andrei [facility] [address] [place], [place] [address]Comment on above:PacemakerStart: 10-11-2023 End: 07-10-2001Cjazjvisx Result EncounterIshmael Simon MD Work Phone: noms External Department UnsolicitedStart: 10-11-2023 End: 76-26-5746Fifyphovh Result EncounterIshmael Simon MD Work Phone: noms External Department UnsolicitedStart: 09-26-2023 End: 22-66-4426Bcbmonhfwp hospital visit by Andrei Device [facility] CenterComment on above:Cardiac pacemaker in situ; Sinoatrial node dysfunction (Multi)Start: 08-10-2023 End: 10-35-3900Gzpvduzvjn hospital visit by Andrei Ultrasound [address] [place], [place] [address]Comment on above:Localized swelling on left hand; S/P placement of cardiac pacemakerStart: 08-10-2023 End: 13-14-2209Kprbbspcv Result EncounterGeneric External Data ProviderNOMS External Department UnsolicitedStart: 08-10-2023 End: 95-52-3289Fdfhnfoxy Result EncounterGeneric External Data ProviderNOWV External Department UnsolicitedStart: 08-10-2023 End: 78-85-3633Uryruf outpatient visit 25 minutesAmador Son MD Work Phone: uh [facility] CenterComment on above:Chronotropic incompetence (Primary Dx); Abnormal stress test; Sinus bradycardia; Sick sinus syndrome (CMS/HCC); Essential hypertension, benign; BMI 34.0-34.9,adult; Current smokerStart: 08-05-2023 End: 99-08-2242Ibsmbkbiqd hospital visit by physicianAmador Son MD Work Phone: uh [facility] CenterComment on above:Sinus bradycardia (Primary Dx); Chronotropic incompetence; Sick sinus syndrome (CMS/HCC); Other fatigue; Abnormal stress test; Dyspnea; PacemakerStart: 07-22-2023 End: 68-18-7129Tsglip outpatient new 60 minutesAmador Son MD Work Phone: uh [facility] CenterComment on above:Chronotropic incompetence (Primary Dx); Sinus bradycardia; Establishing care with new doctor, encounter for; BMI 34.0-34.9,adult; Sick sinus syndrome (CMS/HCC); Simple chronic bronchitis (CMS/HCC); Current smoker; Other fatigue; Preoperative cardiovascular examinationStart: 07-22-2023 End: 16-65-2858Rcyyvic encounter statusAmador Son MD Work Phone: [facility] Work Phone: Start: 59-18-6405eludykmbzsOXBWYHIUMEFE LAKSHMIPATHY . Facility:K5Gxrre: 09-14-2022 End: 20-84-9251uywrsluthoFZPUCUOZYFJG LAKSHMIPATHY .Facility:S5Eczdd: 08-31-2022 End: 22-06-4298zdxdfecvhiQFJKJLFHHKZF LAKSHMIPATHY .Facility:L7Oogax: 08-04-2022 End: 67-33-1459crejequuqoWCNFXYYZWJEA LAKSHMIPATHY .Facility:T0Idibb: 07-23-2022 End: 76-02-0319bzbjgmmhupTXQXFIMVTNIB LAKSHMIPATHY .Facility:G6Ttpcb: 07-20-2022 End: 76-50-6160fjwndwrhxaEZVKNYLRBQCD LAKSHMIPATHY .Facility:Q2Ajyol: 07-15-2022 End: 46-47-9639rxbshoksgdPOGESB KHANH .Facility:S7Rtycw: 13-17-5366Qswdbo outpatient visit 15 minutesMarc A Naderer Work Phone: [phone]-VqqwbSt. [facility] 600 DO Work Phone: Start: 61-51-5151edexcmjokiZk. Valentino Ty Facility:[id number]: 39-55-8056xtjdlxzxbeCT RICKY IBARRA .Facility:S6Qhqrp: 06-11-2022 End: 87-99-1457uobrisdhnlWL ISHMAEL Rae NADERERFacility:K2Lotkg: 05-07-2022 End: 55-93-8104jocbdebblwKL ISHMAEL Rae NADERERFacility:I5Xaols: 05-07-2022 End: 80-47-8954oiiawlotboOQ ISHMAEL Rae NADERERFacility:T2Oycnk: 04-12-2022 End: 58-00-3987xigsfeoexaZG ISHMAEL Rae NADERERFacility:I7Sphmz: 45-68-8745Zttee UpdateMarc A Naderer Work Phone: [phone]-IykzcGlencoe Regional Health Services 250 DO Work Phone: Start: 55-73-4342aqpvfcdfcgHt. Valentino Ty Facility:[id number]: 22-17-3396ctytfyewaeCu. Ishmael Vallejo NadererFacility: Start: 20-17-6688Ivfzmg consultation new/estab patient 60 minMarc A Naderer Work Phone: [phone]-UjupzSt. Francis [facility] 600 DO Work Phone: Start: 01-14-2022 End: 50-42-3179lhdzcvouooPDUK SOLIS .Facility:B4Csbxx: 01-01-2022 End: 63-57-4041fmwdrnzsmuOE ISHMAEL Rae NADERERFacility:Q2Ysnsn: 12-15-2021 End: 99-23-6158wtyjzivzzxYB RICKYGRICELDA IBARRA .Facility:D8Zoroh: 43-69-9584Stabrcdms for preprocedural laboratory examinationDR RICKY IBARRA .[facility] Start: 12-12-2021 End: 99-48-6121fifrahpepjUJ ISHMAEL Rae NADERERFacility:I2Yevgq: 12-12-2021 End: 83-94-5529Bbrljxtnr for preprocedural laboratory examinationDR ISHMAEL Rae NADERERFacility:P8Jbfwr: 12-08-2021 End: 12-73-0050jvpvkhhnkgBO RICKY IBARRA .Facility:W3Njzjv: 12-04-2021 End: 86-06-3010maokcuzppvVY ISHMAEL Rae NADDIEGORFacility:K8Jmxhe: 11-19-2021 End: 28-29-0976yajsxdcikcEEUE COLMENARES .Facility:S4Ygjjm: 11-03-2021 End: 61-65-4990lgmgfooeiyKG RICKY IBARRA .Facility:L9Afkre: 10-22-2021 End: 00-36-6562dmktkchhfyQP RICKY IBARRA .Facility:M6Wwjdi: 10-13-2021 End: 66-71-1181yymytytmapHH RICKY S IBARRA .Facility:I4Fiytk: 10-01-2021 End: 82-81-5453penpfflkuzEDFK COLMENARES .Facility:Z6Orczv: 10-01-2021 End: 27-72-2183xixpufcninGMTB SOLIS .Facility:R2Apitw: 10-03-2020 End: 24-22-9877mewalldavqFXJU BOSWELLFacility:[facility]ENTERtart: 03-26-2020 End: 42-33-1764qseafdyhlkMPWSS R HANNAFacility:[facility]tart: 03-14-2020 End: 15-59-2805yjxtkuobggYUUBE R HANNAFacility:[facility] Procedures DateProcedureProcedure DetailPerforming ClinicianStart: 49-93-7903Wbp interrog pm/ldls pm/ids <90 d tech reviewAltaz Son MD Work Phone: Start: 03-30-8335Xvd routine ecg w/least 12 lds w/i&r Amador N Son MD Work Phone: Start: 72-57-4806Wieyaac eval implantable in persn dual ld Medina Son MD Work Phone: Start: 03-60-3785WLZ CBC WITH AUTO DIFFMarpraveena Simon MD Work Phone: Start: 18-99-2178Zur interrog pm/ldls pm/ids <90 d tech reviewAltaz Son MD Work Phone: Start: 84-98-0436ZO LUNG SCREENING LOW DOSEGeneric External Data ProviderStart: 57-04-9382BML BASIC METABOLIC PANELGeneric External Data ProviderStart: 51-20-7820BMN LIPID PROFILE (FASTING)Generic External Data ProviderStart: 08-82-5341LIM ALTGeneric External Data ProviderStart: 06-14-2024 CCF ASTGeneric External Data ProviderStart: 72-78-0716Hadltgnngi cells LM Ql (Urine sed)Generic External Data ProviderStart: 12-15-7031KPLS STAIN EVALUATION Generic External Data ProviderStart: 43-30-9279Qtykdjbulb [#/volume] in Blood Generic External Data ProviderStart: 38-64-3025NFABW RESPIRATORY CULTUREGeneric External Data ProviderStart: 18-82-7072REDSAJ 1Generic External Data Provider Start: 50-89-5009UMKHHC 2Generic External Data ProviderStart: 11-50-3295NTFPBF 3 Generic External Data ProviderStart: 65-31-5750OKGPRL 4Generic External Data ProviderStart: 39-92-2391Kle routine ecg w/least 12 lds w/i&Ana María Son MD Work Phone: Start: 89-62-0158Gbhsjqs eval implantable in persn dual ld Lester Wright 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 Work Phone: Start: 11-30-5785OLT HEMOGLOBIN Q4DRuloIshmael Simon MD Work Phone: Start: 74-59-9437IJ lumbar spine wo conIshmael Simon MD Work Phone: Start: 30-17-4856MI pre/post mri xrayIshmael Simon MD Work Phone: Start: 65-05-3656Chx interrog pm/ldls pm/ids <90 d tech reviewAmador Son MD Work Phone: Start: 34-90-2487MBK UA (CLEAN/CATCH) MICROSCOPIC IF INDICATEIshmael Simon MD Work Phone: Start: 84-93-2591Lds routine ecg w/least 12 lds w/i&r Naimadaniel Wright [employer]Blue[employer]![facility] Work Phone: Start: 42-21-8280GQ CHEST 2 VIEWS PA/LATGeneric External Data ProviderStart: 00-09-6887Egwavak eval implantable in persn dual ld paceLawrence Dodge Quoc [facility] AVONDALEBluebox Now![facility] Work Phone: Start: 21-09-0385Udyuo shoulder complete minimum 2 viewsIshmael Simon MD Work Phone: Start: 02-19-5397PZBLQKR DEVICE CHECK - REMOTEAltaz Son MD Work Phone: Start: 08-10-2023 End: 82-88-2730Ykc-scan xtr veins unilateral/limited studyTradaniel Wright [employer]-[facility] Work Phone: Start: 76-19-1135Kllidvwnqo exam chest single viewAna M Echo Quoc [employer]-[facility] Work Phone: Start: 75-73-2218Dkr routine ecg w/least 12 lds trcg only w/o i&Lawrence Echo [employer]-[facility] Work Phone: Start: 81-13-1930Kukfdorobilvvonif studyAmador Son MD Work Phone: Start: 58-39-4438Mvxt tthrc r-t 2d w/wom-mode compl spec&colr Nadege Angel [facility] AVONDALEBluebox Now![facility] Work Phone: Start: 26-84-8193Vzg routine ecg w/least 12 lds trcg only w/o i&Lawrence Echo Stanley 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 Work Phone: Start: 30-83-7122Swiqu metabolic panel calcium total Ana M Echo Barrettcrys 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 Work Phone: Start: 27-45-3380Lot routine ecg w/least 12 lds w/i&r Amador Son MD Work Phone: Start: 22-84-3241LCZ screeningDR ISHMAEL NADERERComment on above:Performed By: #### VITAD, PSASC #### [facility] [address] [place] [address] Dr. Britt MendozaStart: 80-99-1912TQJZRK HIP ARTHROPLASTYSIMONE BOSWELLStart: 82-47-0108PGRKB HIP ARTHROPLASTYMAGED R HANNAStart: 73-91-8318Tpgehgtk screen SIMONE Leal on above:Performed By: #### [id number] ####[facility] [place] [address], USAStart: 08-24-[address] Work Phone: ColonoscopyMarc A Naderer Work Phone: Excision of cystMarc A Naderer Work Phone: Hernia repairMarc A Naderer Work Phone: Operation on urinary systemMarc A Naderer Work Phone: Surgical repair of upper extremityMarc A Naderer Work Phone: Total replacement of hipMarc A Naderer Work Phone: Plan of Treatment DateCare ActivityDetailAuthorStart: 95-20-2338Eumzymvfv for malignant neoplasm of colonNOMS HealthcareStart: 65-85-8498Fhamccvb screeningDiabetes: Retinopathy ScreeningNOMS HealthcareStart: 54-85-8354Jecln screening for proteinDiabetes: Urine Protein ScreeningNOWV HealthcareStart: 06-04-2025 End: 15-13-9674Ggxkhci encounter procedureSpalding Rehabilitation Hospitaltart: 05-15-2025 End: 40-88-1281Fkuteno encounter rfkcotiae81/07/2026 8:40 AM EST Office Visit [address] [place] [phone] Valentino Ty MD [address] [facility] [address], [address] [place] [address] [facility]Start: 04-26-2025 End: 84-23-1390Mebybii encounter dxblumeee46/19/2025 9:30 AM EST Office Visit [facility] [address] [place] [id number] Ishmael Simon MD [address] [place] [id number] [facility] FMStart: 12-17-2025Medicare Annual Wellness (AWV)Medicare Annual Wellness (AWV)NOM HealthcareStart: 84-69-4550Zkxnsjjecn A1c measurement Diabetes: Hemoglobin T6HIXXM HealthcareStart: 51-10-7446BENFD-19 Vaccine ( season)COVID-19 Vaccine ( season)[facility] HospitalStclarkton: 77-21-0019Oqokjfkzj vaccinationNOWV HealthcareStart: 12-24-2024 End: 87-89-8211Pvtimmp encounter procedureNOWV CWM FMComment on above:Arrived Start: 51-43-8993Gedaovuph vaccinationInfluenza Vaccine (#1)[facility]: 60-70-6348Aucfc BMI ScreeningAdult BMI ScreeningGerman Hospital SystemStart: 41-93-6268Pigdvfo ScreeningTobacco ScreeningGerman Hospital SystemStart: 11-28-2024 End: 09-02-5070Dicxvzp encounter procedureRooks County Health Centertart: 11-21-2024 End: 70-98-6618Yphzbwx encounter pjshshuuk78/16/2025 8:[address] [facility] [address] [place] [id number] [facility]: 10-23-2024 End: 790040-eyzyomvhszqxhx D3 [Mass/volume] in Serum or PlasmaVitamin D 25 hydroxy Lab Routine Vitamin D insufficiency Expected: 10/23/2024 (Approximate), Expires: 10/23/2025[facility] Work Phone: Comment on above:Expected: 10/23/2024 (Approximate), Expires: 10/23/2025Start: 10-23-2024 End: 70-55-0979Xsvct metabolic 1998 panel - Serum or PlasmaBasic metabolic panel Lab Routine Essential hypertension, benign Expected: 10/23/2024 (Approximate), Expires: 10/23/2025[facility] HealthcareComment on above:Expected: 10/23/2024 (Approximate), Expires: 10/23/2025Start: 10-23-2024 End: 04-76-9446BBH W Auto Differential panel - BloodCBC and differential Lab Routine Encounter for long-term (current) use of medications Expected: 10/07 (Approximate), Expires: 10/23/2025[facility] HealthcareComment on above: Expected: 10/23/2024 (Approximate), Expires: 10/23/2025Start: 10-23-2024 Hemoglobin A1c measurementDiabetes: Hemoglobin Y4ZCUPVMosaic Life Care at St. JosephStart: 10-23-2024 End: 05-41-8020Vkcbikwxrw A1c/Hemoglobin.total in BloodHemoglobin A1c Lab Routine Type 2 diabetes mellitus with hyperglycemia, without long-term current use of insulin (HCC) Expected: 10/23/2024 (Approximate), Expires: 10/23/2025[facility] HealthcareComment on above:Expected: 10/23/2024 (Approximate), Expires: 10/23/2025Start: 10-23-2024 End: 59-71-0022Iqmjvgj function 2000 panel - Serum or PlasmaHepatic function panel Lab Routine Encounter for long-term (current) use of medications Expected: 10/23/2024 (Approximate), Expires: 10/23/2025[facility] HealthcareComment on above: Expected: 10/23/2024 (Approximate), Expires: 10/23/2025Start: 10-23-2024 End: 62-39-0670Nerbt 1996 panel - Serum or PlasmaLipid panel Lab Routine Dyslipidemia Expected: 10/23/2024 (Approximate), Expires: 10/23/2025[facility] HealthcareComment on above:Expected: 10/23/2024 (Approximate), Expires: 10/23/2025Start: 10-23-2024 End: 86-10-4456Giexfnnj specific Ag [Mass/volume] in Serum or PlasmaPSA Lab Routine Screening PSA (prostate specific antigen) Expected: 10/23/2024 (Approximate), Expires: 10/23/2025[facility] HealthcareComment on above:Expected: 10/23/2024 (Approximate), Expires: 10/23/2025Start: 10-23-2024 End: 50-86-4031Zfsghnndaxa [Units/volume] in Serum or PlasmaTSH Lab Routine Class 2 severe obesity due to excess calories with serious comorbidity and body mass index (BMI) of 39.0 to 39.9 in adult ([facility]) Expected: 10/23/2024 (Approximate), Expires: 10/23/2025[facility] HealthcareComment on above:Expected: 10/23/2024 (Approximate), Expires: 10/23/2025Start: 10-23-2024 End: 73-90-5944Quvzwux encounter procedureNOMS CWM FMComment on above:Arrived Start: 02-63-9032Niarnqiqhs measurementCreatinine LevelUnKettering Health: 02-60-7835LaalrtkzvxcoxwonHuaxaxnytxgksuNhadhfczlf [facility] ClevelandStart: 02-61-0963Vbhfcefus measurementPotassium LevelUnKettering Health: 07-23-2024 End: 91-76-4763Qeisogmcfekj/Creatinine panel in random UrineMicroalbumin / creatinine, urine ratio Lab Routine Type 2 diabetes mellitus with hyperglycemia, without long-term current use of insulin ([facility]) Expected: 07/23/2024 (Approximate), Expires: 07/23/2025[facility] Work Phone: Comment on above:Expected: 07/23/2024 (Approximate), Expires: 07/23/2025Start: 07-23-2024 End: 82-53-5088Iszqysm encounter cyfdovsgh57/17/2025 10:15 AM EDT Office Visit [facility] [address] [place] [phone] Ishmael Simon MD [address] [place] [place] [address] [facility] FMStart: 06-13-2024 End: 59-63-0097Yveedpj aminotransferase [Enzymatic activity/volume] in Serum or Plasma by With P-5'-PAlanine Aminotransferase Lab Routine Hyperlipidemia, unspecified hyperlipidemia type Expected: 06/13/2024 (Approximate), Expires: 06/13/2025[facility] Service Area Work Phone: Comment on above:Expected: 06/13/2024 (Approximate), Expires: 06/13/2025Start: 06-13-2024 End: 49-64-7901Yewodmomm aminotransferase [Enzymatic activity/volume] in Serum or Plasma by With P-5'-PAspartate Aminotransferase Lab Routine Hyperlipidemia, unspecified hyperlipidemia type Expected: 06/13/2024 (Approximate), Expires: 06/13/2025[facility] Work Phone: Comment on above:Expected: 06/13/2024 (Approximate), Expires: 06/13/2025Start: 06-13-2024 End: 23-91-0995Leujc metabolic 2000 panel - Serum or PlasmaBasic Metabolic Panel Lab Routine Essential hypertension, benign Expected: 06/13/2024 (Approximate), Expires: 06/13/2025[facility] Work Phone: Comment on above:Expected: 06/13/2024 (Approximate), Expires: 06/13/2025Start: 06-13-2024 End: 90-98-0648Ndxre 1996 panel - Serum or PlasmaLipid Panel Lab Routine Hyperlipidemia, unspecified hyperlipidemia type Expected: 06/13/2024 (Approx imate), Expires: 06/13/2025[facility] Work Phone: Comment on above:Expected: 06/13/2024 (Approximate), Expires: 06/13/2025Start: 06-13-2024 End: 69-26-5420Bzkccyk encounter jhjbwfciv97/05/2025 9:10 AM EST Office Visit [address] [place] [address] Valentino Ty MD [address] [facility], [address] [place] [address] [facility]: 06-06-2024 End: 30-60-7373Hntksns encounter qhfbagjup76/29/2025 9:45 AM EST Office Visit [facility] [address] [place] [phone] Ishmael Simon MD [address] [place] [phone] ArrivedNOHILLCREST [facility] FMComment on above:ArrivedStart: 06-04-2024 End: 32-91-0710Ikporbj encounter attnndwez19/27/2025 9:30 AM EST [facility] [address] [place] [address] Ishmael Simon MD [address] [place] [phone] [facility] CW FMStart: 34-82-7103Lwczg screening for proteinDiabetes: Urine Protein ScreeningNOWV HealthcareStart: 05-23-2024 End: 41-69-3455Nwlqepb encounter procedureSpalding Rehabilitation Hospitaltart: 49-45-4594Alwvioim screeningDiabetes: Retinopathy ScreeningNOMS HealthcareStart: 05-11-2024 End: 55-97-7414Rhrtmcw Device Check - In ClinicCardiac Device Check - In Clinic Implantable Cardiac Device Routine Sinus bradycardia Sick sinus syndrome (Multi) Chronotropic incompetence MRI safe cardiac pacemaker in situ Expected: 05/11/2024 (Approximate), Expires: 11/08/2024[facility] Service Area Work Phone: Comment on above:Expected: 05/11/2024 (Approximate), Expires: 11/08/2024Start: 04-24-2024 End: 39-94-8584Jbyicjtlzb A1c/Hemoglobin.total in BloodHemoglobin A1c Lab Routine Type 2 diabetes mellitus with hyperglycemia, without long-term current use of insulin ([facility]) Expected: 04/24/2024 (Approximate), Expires: 04/24/2025 [facility] Healthcare Work Phone: Comment on above:Expected: 04/24/2024 (Approximate), Expires: 04/24/2025Start: 04-24-2024 End: 50-73-7998Ozuafek encounter procedureNOHILLCREST MEDICAL CENTER [facility] FMComment on above:Arrived Start: 95-51-9442Oqbicrvash A1c measurementDiabetes: Hemoglobin R2RLQFMMosaic Life Care at St. JosephStart: 70-20-2125FMJ High Risk: (Elderly (60+) or Population) (1 - Risk 60-74 years 1-dose series)RSV High Risk: (Elderly (60+) or Population) (1 - Risk 60-74 years 1-dose series)[facility]Start: 02-06-2024 End: 26-68-8763Tvvtudpw identified in Urine by CultureUrine culture (clean catch) Microbiology Routine Dysuria Expected: 02/06/2024 (Approximate), Expires: 02/05/2025[facility] Healthcare Work Phone: Comment on above:Expected: 02/06/2024 (Approximate), Expires: 02/05/2025Start: 02-06-2024 End: 04-66-5388Mcvnrherg trachomatis and Neisseria gonorrhoeae DNA [Identifier] in Unspecified specimen by KATT with probe detectionChlamydia DNA probe, direct Microbiology Routine Acute prostatitis Pyuria Expected: 02/06/2024 (Appr oximate), Expires: 02/05/2025[facility] HealthcareComment on above:Expected: 02/06/2024 (Approximate), Expires: 02/05/2025Start: 02-06-2024 End: 86-06-9153Rqfcmhgfd gonorrhoeae DNA assayGonococcus DNA, PCR Microbiology Routine Dysuria Acute prostatitis Pyuria Expected: 02/06/2024 (Approximate), Expires: 02/05/2025[facility] HealthcareComment on above:Expected: 02/06/2024 (Approximate), Expires: 02/05/2025Start: 02-06-2024 End: 28-03-5145Idwxqvvivh complete panel - UrineUrinalysis with reflex microscopic (clean catch) Lab Routine Dysuria Expected: 02/06/2024 (Approxima te), Expires: 02/05/2025[facility] HealthcareComment on above:Expected: 02/06/2024 (Approximate), Expires: 02/05/2025Start: 01-13-2024 End: 12-82-2238Reoaehx encounter procedureNOMS CWM FMComment on above:Arrived Start: 02-65-1722WTTTT-19 Vaccine ( season)COVID-19 Vaccine ( season)[facility]: 71-01-6313WOGYL-19 Vaccine ( season)COVID-19 Vaccine ( season)[facility]: 97-72-5014Nbjmnxjux vaccinationParkview Health [facility] Hospital: 12-23-2023 End: 37-23-7696Agzuguh encounter wjgamfkas44/16/2024 10:00 AM EDT Appointment [facility] [address] [place] [address] Roc Ramsey DO [address] [place] [address] [facility]art: 12-14-2023 End: 95-85-1560LH.doppler Extremity arteries - bilateral for physiologic artery studyVas art doppler lwr bilat mult lev/PVR Vascular Ultrasound Routine Claudication (CMS-HCC) Expected:12/14/2023, Expires: 12/13/2024[facility] Work Phone: Comment on above:Expected: 12/14/2023, Expires: 12/13/2024Start: 12-07-2023 End: 19-35-6538TX.doppler Extremity arteries - bilateral for physiologic artery studyVas art doppler lwr bilat mult lev/PVR Vascular Ultrasound Routine Right leg pain Expected: 12/07/2023, Expires: 12/06/2024[facility] Work Phone: Comment on above:Expected: 12/07/2023, Expires: 12/06/2024Start: 11-21-2023 End: 88-81-3833Lczvafv encounter jofejxizt14/15/2024 8:50 AM EDT Office Visit [place] [address] [place] [address] Valentino Ty MD [address] [facility] [address], [address] [place] [address] [facility]Start: 11-09-2023 End: 54-38-7279Praxohp Device Check - In [facility] Service Area Work Phone: Comment on above:Expected: 11/09/2023 (Approximate), Expires: 08/04/2024Start: 11-09-2023 End: 51-80-6062PK Chest 2 [facility] Work Phone: Comment on above:Expected: 11/09/2023, Expires: 08/04/2024Once for 1 Occurrences starting 11/09/2023 until 11/09/2023Start: 11-09-2023 End: 35-69-5702Gfdslst encounter procedureSpalding Rehabilitation Hospitaltart: 11-03-2023 End: 12-31-4398Tlyesji encounter qfkyvqeue52/27/2024 8:50 AM EDT Office Visit [place] [address] [place] [address] Valentino Ty MD [facility] [facility], [address] [place] [address] [facility]Start: 08-12-2023 End: 49-99-1702Hvebqdyv Pthhsmn3708/12/2023 8:30 AM EDT Clinical Support [facility] [address] [place] [address] [facility]: 94-75-5600Mpexejwqwc hospital visit by qcdmacqiq73/03/2024 2:09 PM EDT Hospital Encounter [facility] [address] [place] [address] Localized swelling on left hand; S/P placement of cardiac pacemakerSt. Mary-Corwin Medical CenterComment on above:Localized swelling on left hand; S/P placement of cardiac pacemakerStart: 07-22-2023 End: 40-68-3049HM Heart TransthoracicTransthoracic Echo Complete Echocardiography Routine Sinus bradycardia Chronotropic incompetence Sick sinus syndrome (CMS/HCC) Other fatigue Preoperative cardiovascular examination Expected: 07/22/2023 (Approximate), Expires: 07/21/2025UnC[facility] Clinic [facility] Work Phone: Comment on above:Expected: 07/22/2023 (Approximate), Expires: 07/21/2025Start: 98-24-1236AWS, Provider: Valentino Ty, Status: Pen, Time: 8:30 AMFUV, Provider: Valentino Ty, Status: Pen, Time: 8:30 AM [facility] [address] Work Phone: Start: 40-14-3069HZQPK-19 Vaccine ( season) COVID-19 Vaccine ( season)[facility]Start: 08-43-2276Ptwcnlfje vaccinationInfluenza Vaccine (#1)[facility]: 92-02-0288QLP, Provider: Valentino Ty, Status: Pen, Time: 10:40 AMFUV, Provider: Valentino Ty, Status: Pen, Time: 10:40 AMMP-[facility] [address] DO Work Phone: Start: 03-83-1940NAOUOO JUICE, Provider: CARLITO HHVI NUCLEAR 01,[id number], Status: Pen, Time: 2:00 PMSTRESS JUICE, Provider: CARLITO HHVI NUCLEAR 01,[id number], Status: Pen, Time: 2:00 PMMP-[facility] [address] DO Work Phone: Start: 29-56-9528Nlzgqyzdwtgrot of varicella zoster vaccineZoster (Shingles) Vaccine (1 of 2)[facility] Koalify SystemStart: 65-23-7628Gueojjde specific antigen measurementPSA Prostate Cancer Screening [facility]: 79-34-6663NAE High Risk: (Elderly (60+) or Population) (1 - Risk 50-74 years 1-dose series)RSV High Risk: (Elderly (60+) or Population) (1 - Risk 50-74 years 1-dose series) [facility]: 94-51-9933Oztzxy Vaccines (1 of 2)Zoster Vaccines (1 of 2)[facility]: 23-39-0288CBtX/Tdap/Td Vaccines (1 - Tdap)DTaP/Tdap/Td Vaccines (1 - Tdap)[facility]: 00-19-0895RWoW,Tdap and Td Vaccines (1 - Tdap)DTaP,Tdap and Td Vaccines (1 - Tdap)[facility] Koal[employer] SystemStart: 73-05-0877Gnffsfnph B Vaccines (1 of 3 - 19+ 3-dose series)Hepatitis B Vaccines (1 of 3 - 19+ 3-dose series) [facility]: 44-72-9081Rcfixblciauv vaccination Pneumococcal Vaccine (1 of 2 - PCV)[facility]: 66-84-4272Xiojy screening for proteinDiabetes: Urine Protein ScreeningParkview Health [facility]: 09-58-2644Dkrnn BMI Follow Up PlanAdult BMI Follow Up PlanCone Health Moses Cone Hospitaltart: 41-56-3427Bahcxbic mellitus screening Diabetes ScreeningParkview Health [facility]: 71-18-9316Jvpthrsc foot examinationDiabetic Foot ExamProSelect Medical Specialty Hospital - Columbustart: 02-21-1982 Hepatitis C screeningHepatitis C ScreeningUnCleveland Clinic [facility]'s [facility] for Rehabilitation Start: 91-57-0869Lpyisbjkup ScreeningDepression ScreeningCincinnati Shriners Hospital Start: 46-83-9654Lvjxxouk foot examinationDiabetes: Foot ExamUnKettering Health: 93-08-6282Itwajgtt screeningDiabetes: Retinopathy ScreeningUnKettering Health: 35-98-9714Kadukfhnyatf Vaccine: Pediatrics (0 to 5 Years) and At-Risk Patients (6 to 64 Years) (1 - PCV) Pneumococcal Vaccine: Pediatrics (0 to 5 Years) and At-Risk Patients (6 to 64 Years) (1 - PCV)[facility]: 59-32-8221Qqqszzibjslx Vaccine: Pediatrics (0 to 5 Years) and At-Risk Patients (6 to 64 Years) (1 of 2 - PCV)Pneumococcal Vaccine: Pediatrics (0 to 5 Years) and At-Risk Patients (6 to 64 Years) (1 of 2 - PCV)[facility]: 06-06-6577XAU Vaccines (1 of 1 - Standard series)MMR Vaccines (1 of 1 - Standard series) [facility]: 12-19-3996WCGEU-19 Vaccine (#1)COVID-19 Vaccine (#1)[facility]: 11-03-6110Trupdh wellness visitWelcome to Medicare VisitUnKettering Health: 1965 Creatinine measurementCreatinine LevelUnKettering Health: 76-67-3466YdetoehdatvdpcaqRmbsfefzehaclzZvuzfedjfx [facility] ClevelandStart: 91-62-9980Tffapkpe screeningDiabetic Ophthalmology ExamProCleveland Clinic [facility] Start: 30-63-7989Kesncuuryr A1c measurementDiabetes: Hemoglobin G2NPbugvcylxuKettering Health: 00-31-1158Eodooclik B Vaccines (1 of 3 - 3-dose series)Hepatitis B Vaccines (1 of 3 - 3-dose series)[facility]: 43-46-5781WUR screeningHIV ScreeningParkview Health [facility]: 44-37-2038Cbluj panelLipid PanelParkview Health Montpelier Hospital: 1964Medicare Annual Wellness (AWV)Medicare Annual Wellness (AWV)[facility]: 1964Medicare Annual Wellness VisitMedicare Annual Wellness Visit (AWV)[facility]: 1965 Potassium measurementPotassium LevelUnKettering Health: 80-02-4482Cqehgtlye for malignant neoplasm of colonParkview Health [facility]: 68-01-0573Amvsmqz CounselingTobacco CounselingGerman Hospital SystemStart: 46-49-3237Tvssw screening for proteinDiabetes: Urine Protein ScreeningEast [facility] End: 70-93-2068Wkaal metabolic 2000 panel - Serum or PlasmaBasic Metabolic Panel Lab Routine Sinus bradycardia Chronotropic incompetence Sick sinus syndrome (C MS/HCC) Other fatigue 1 Occurrences starting 07/22/2023 until 07/21/2024 [facility] Work Phone: Comment on above:1 Occurrences starting 07/22/2023 until 07/21/2024 End: 60-00-5591Fpcwbyg Device Check - In ClinicCardiac Device Check - In Clinic Implantable Cardiac Device Routine Cardiac pacemaker in situ 1 Occurrences starting 05/23/2024 until 11/20/2025[facility] Service Area Work Phone: Comment on above:1 Occurrences starting 05/23/2024 until 11/20/2025 End: 00-72-4500Yxdhobd Device Check - In ClinicCardiac Device Check - In Clinic Implantable Cardiac Device Routine Cardiac pacemaker in situ 1 Occurrences starting 11/28/2024 until 05/31/2026[facility] Service Area Work Phone: Comment on above:1 Occurrences starting 11/28/2024 until 05/31/2026 End: 91-47-7511Maycrjd Device Check - RemotePRESBYTERIAN SANTA FE [facility] Service Area Work Phone: Comment on above:Once for 1 Occurrences starting 01/25/2024 until 01/25/2024 End: 53-29-5598Hoebuaw Device Check - RemoteCardiac Device Check - Remote Implantable Cardiac Device Routine Cardiac pacemaker in situ 52 Occurrences starting 05/23/2024 until 11/20/2024[facility] Work Phone: Comment on above:52 Occurrences starting 05/23/2024 until 11/20/2024 End: 62-92-0753Exzsvhq Device Check - RemoteCardiac Device Check - Remote Implantable Cardiac Device Routine Cardiac pacemaker in situ 52 Occurrences starting 11/28/2024 until 05/31/2025[facility] Work Phone: Comment on above:52 Occurrences starting 11/28/2024 until 05/31/2025 End: 87-28-4921TGK panel - Blood by Automated countCBC Lab Routine Sinus bradycardia Chronotropic incompetence Sick sinus syndrome (CMS/HCC) Other fati tamika 1 Occurrences starting 07/22/2023 until 07/21/2024[facility] Work Phone: Comment on above:1 Occurrences starting 07/22/2023 until 07/21/2024ECG 12 lead (Clinic Performed)ECG 12 lead (Clinic Performed) ECG Routine Sinus bradycardia 11/09/2023 10:38 AM [facility] Work Phone: ecg 12 lead STATECG 12 lead STAT ECG STAT 08/05/2023 12:30 PM [facility] Service Area Work Phone: ecg 12 lead STATECG 12 lead STAT ECG STAT 08/05/2023 5:12 PM [facility] Work Phone: LOWZM RESPIRATORY CULTURELOWER RESPIRATORY CULTURE Lab Routine 05/27/2024 6:00 PM ESTNOMS HealthcarePPM IMPLANT DCPPM IMPLANT DC Sinus bradycardia Chronotropic incompetence Sick sinus syndrome (CMS/HCC) Other fatig ueUniProtestant Deaconess Hospital Work Phone: End: 76-79-8337Gnwrpesobmy time (PT)Protime-INR Lab Routine Sinus bradycardia Chronotropic incompetence Sick sinus syndrome (CMS/HCC) Other fatigue 1 Occurrences starting 07/22/2023 until 07/21/2024[facility] Service Area Work Phone: Comment on above:1 Occurrences starting 07/22/2023 until 07/21/2024 Payers DatePayer CategoryPayerPolicy [id number]-pay2024Medicare (Managed Care)[id number] Health [id number] [id number] 80-43-5530[facility] Fh[id number] 2..840.1.100442.3.57[id number] 2..840.1.052100.3.57[id number] 2..840.1.441232.3.57[id number] 2.16.840.1.390233.3.57[id number] 2..840.1.969150.3.579.[id number] 2.16.840.1.783050.3.579.[id number] 2.16.840.1.007627.3.579.2.92813-06-1070Xincjpr1671615 2.16.840.1.629004.3.579.[id number] 2.16.840.1.242149.3.579.2.81572-45-5880Frmqtwo7746995 2.16.840.1.747183.3.579.2.33310-01-6438Fsqbfeg4484106 2.16.840.1.346262.3.579.2.21206-55-6186Jyslwku8549374 2.840.1.169780.3.579.2.31166-54-4745Wlumqap0182616 2..840.1.961247.3.579.2.03380-85-9422Aeobdbq9633931 2.840.1.902030.3.579.2.65207-67-1600Fsckvhy7307520 2.840.1.372127.3.579.2.58663-71-9789Npczywd8578005 2.840.1.984302.3.579.2.73051-31-2667Rlzapbk4622955 2..840.1.814218.3.579.2.09551-62-9246Cwtqwut1946107 2.840.1.995485.3.579.2.53497-87-6659Cvuzjll0252168 2.840.1.325086.3.579.2.07953-91-7706Hqfrpfm5108488 2.840.1.270663.3.579.2.02670-78-1744Bhjmlxz7437825 2.840.1.814096.3.579.2.97492-57-4492Sjwrukw9252331 2.840.1.968052.3.579.2.28650-74-7783Ijpgggt3732578 2.840.1.175860.3.579.2.14108-63-2237Vtgkeja6405166 2.840.1.366623.3.579.2.85961-87-7112Crdkymb7250048 2.840.1.892614.3.579.2.07241-08-6402Crfnpvd9181357 2..840.1.482284.3.579.2.63560-72-3107Venhmsq8132027 2.840.1.835627.3.579.2.39567-20-6157Nppsuxq3388259 2.840.1.045597.3.579.2.58277-54-7694Clrcxeq3287501 2.840.1.567223.3.579.2.73193-05-3171Ykthiqu1419396 2.840.1.222410.3.579.2.17294-34-5605Mihhevs982149263 2.840.1.261674.3.579.2.32429-94-3080Clevrtn648574827 2.840.1.034042.3.579.2.00215-72-4795Ouiurba978556230 2.840.1.196393.3.579.2.15429-74-1063Geqqows18725129 2.840.1.722924.3.579.2.031291-88-5816Goluync19352794 2.840.1.610826.3.579.2.496409-19-5726Jykxhtb0052855 2.840.1.642025.3.579.2.755652-04-3089Nbhzyjy8554957 2.840.1.994921.3.579.2.099670-36-2816Ntfwpvs4944329 2.840.1.080070.3.579.2.450838-69-0646Dnwftbj0029692 2..840.1.354334.3.579.2.988985-01-8045Cheyvzj0482284 2..840.1.429604.3.579.2.222175-96-3603Uvzhckx412533698 2..840.1.860408.3.579.2.565017-58-6016Dbpktwa758010227 2..840.1.589713.3.579.2.801350-45-0078Rkgesjp204275121 2..840.1.587348.3.579.2.276534-03-4949Nqgnudx47224032 2.840.1.493970.3.579.2.003300-02-8949Rpjmenm59950029 2.0.1.749345.3.579.2.280463-03-6896Zdjapzd12644870 2.840.1.151759.3.579.2.103271-43-9510Yvtrquc64793204 2.840.1.215252.3.579.2.1246 [id number] 1961Medicare [id number] [facility] [id number] 5gcw4tg7-upc4-7343-w3ez-[id number] 2.840.1.727812.3.579.2.611Erqsxty37799486 2.0.1.414866.3.579.2.531 Social History DateTypeDetailFacilityStart: 07-13-2023 End: 34-58-2682Bk alcohol useNo alcohol useNOMS HealthcareComment on above:1 pack daily;Start: 04-13-2023 End: 60-40-5762Kagbezk smoking status NHISSmokes tobacco dailyUnCleveland Clinic Children's Hospital for RehabilitationStart: 91-35-3460Ziqqvar of tobacco useCigarette Smoker [facility] Work Phone: Start: 04-13-2023 End: 80-29-0527Xzpqzua use and exposureSmokeless tobacco non-userUnCleveland Clinic Children's Hospital for Rehabilitation Work Phone: Start: 07-19-2023 End: 78-69-2266Skvsass intakeLifetime non-drinker (finding)[facility] Work Phone: Start: 07-13-2023 End: 63-55-3716Rsmbtzw use panelNOWV HealthcareStart: 73-29-4215Svy Assigned At BirthNot on fileUnCleveland Clinic Children's Hospital for Rehabilitation Work Phone: Start: 07-12-2023 End: 10-19-0870Omkzwfog to SARS-CoV-2 (event)Not sureUnCleveland Clinic Children's Hospital for RehabilitationStart: 04-03-2022 End: 82-55-7018Bjtkegisf of Social Gatherings with Friends and FamilyNot on file N[facility] HealthcareDo you belong to any clubs or organizations such as religion groups, unions, fraternal or athletic groups, or [...] got money to buy more.Never trueNOMS HealthcareStart: 58-28-4649Efjliyo smoking status NHISSmoker (finding)[facility]ertart: 04-03-2022 End: 55-38-6326XnrWobg (finding)[facility] Centertart: 70-98-8893Lny [facility] At [facility] Hospitaltart: 03-39-1443Ndcgkzf smoking status NHISEx-smokerEast [facility] Work Phone: Medical Equipment Procedure CodeEquipment CodeEquipment Original TextEquipment IdentifierDates Lead, Capsurefix Novus, 52 Cm - [id number]: 68-00-2679Wats, Capsurefix Novus, 45 Cm - [id number]: 50-64-6946Nvddmncjw, Dual Chamber, Kae Mri Xt Dr - [id number]: 92-00-4227Fvur 28s06ip Progrip [facility] - [id number]: 06-30-2021 Functional Status VnrpJsrritqqcfManiphQozxxomh13-16-4210Tytyatf Health Questionnaire 2 item (PHQ- 2) [Reported][facility] [id number] score [AUDIT-C]0 10/09/2023 9:03 AM EDT [facility]K MediadeltonaHybrentMosaic [facility] Care at St. JosephPwumpeakbp71-92-8739Apg often do you have a drink containing alcohol?Never 10/09/2023 9:03 AM EDT [facility] MediaM[facility] Joseph06-02-2024Functional statusPatient does not drink 10/09/2023 9:03 AM EDT [employer] Patient does not drinkMosaic Life Care at St. JosephYrbajtbuga51-13-7756Cxi often do you have 6 or more drinks on 1 occasion?Never 10/09/2023 9:03 AM T [facility] 08-31-2020 to 02-05-2025 Note Date & LqbxGjcvPizobhue53-52-5499 NoteNeurosurgery Consult Chief Complaint: Right leg and [...] repair. He has seen Dr. Marcelino with [facility] surgery in the past. Despite [...] Resource Strain: Low Risk (10/09/2023) [facility] Overall Financial Resource Strain (CARDIA) Difficulty of Paying Living Expenses: Not hard at all Food Insecurity: No Food Insecurity (12/07/2023) Received from [facility] Hunger Screening Within the past 12 months we worried whether our food would run out before we got money to buy more.: Never True Within the past 12 months the food we bought just didn't last and we didn't have money to get more.: Never True Transportation Needs: No Transportation Needs (10/09/2023) [facility] PRAPARE - Transportation Lack of Transportation (Medical): No Lack of Transportation (Non-Medical): No Physical Activity: Insufficiently Active (10/09/2023) Re[facility] from [facility] Exercise Vital Sign Days of Exercise per Week: 2 days Minutes of Exercise per Session: 10 min Stress: No Stress Concern Present (10/09/2023) Re[facility] from [facility] [place] of Occupational Health - Occupational Stress Questionnaire Feeling of Stress : Not at all Social Connections: Unknown (10/09/2023) Re[facility] from [facility] Social Connection and Isolation Panel [NHANES] Frequency of Communication with Friends and Family: More than three times a week Frequency of Social Gatherings with Friends and Family: Not on file Attends Shinto Services: Patient declined Active Member of Clubs or Organizations: No Attends Club or Organization Meetings: Patient declined Marital Status: Living with partner Intimate Partner Violence: Unknown (02/05/2025) Humiliation, Afraid, Rape, and Kick questionnaire Fear of Current or Ex-Partner: No Emotionally Abused: Not on file Physically Abused: Not on file Sexually Abused: Not on file Housing Stability: Low Risk (10/09/2023) Re[facility] from [facility] Housing Stability Vital (more content not included)...[facility]08-18-2025 History of Present illness Narrative* [...] continue lasix. Elevate legs PRN. * Ishmael Smion MD - 12/24/2024 8:30 AM EDT Images [...] diet and limit carbs. documented in this encounterMosaic Life Care at St. JosephKocbdvzywg29-45-4550 History of Present illness Narrative* Amador Son [...] A DAY cetirizine (ZYRTEC) 10 mg, Nightly nftvplkgdwj-ulubxjmgi-jtnymzqf (TRELEGY-ELLIPTA) 100-62.5-25 mcg blister with device 1 [...] a BMI 35.27. Plan recommendation From the care connector on point he is stable. He is [...] [4] No Known Allergies documented in this encounterEast [facility] Work Phone: [phone]) 600-368307-23-2025 Instructions* Patient Instructions* Jazz Flynn RN - [...] your visit. Follow up with our physician tmd teacher assistant, Vaishnavi, in 6 months with device check Continue remote checks at 3 and 9 months IJazz RN, AM SCRIBING FOR, AND IN THE PRESENCE OF DR. AMADOR SON MD documented in this encounterEast [facility] Regional Hospital Work Phone: [phone] 341-823706-17-2025 History of Present illness Narrative* Ishmael Simon [...] (BMI) of 39.0 to 39.9 in adult ([facility]) Weight loss indicated. * Ishmael Simon MD [...] hyperglycemia, without long-term current use of insulin ([facility]) - Primary Not checking BS and due [...] index (BMI) of39.0 to 39.9 in adult ([facility]) Weight loss indicated. Relevant Orders TSH Primary osteoarthritis of right hip Pain stable and use percocet PRN. Continue home PT exercises. documented in this encounterMosaic Life Care at St. JosephQpsmyirylh71-80-6330 History of Present illness Narrative* Ishmael Simon MD - 07/23/2024 10:54 AM EDTAssociated Problem(s): Type 2 diabetes mellitus with hyperglycemia, without long-term current use of insulin ([facility]) Not checking BS but A1C controlled. Stick [...] 10:53 AM EDTAssociated Problem(s): Essential hypertension, benign ([facility]) BP controlled and monitor PRN. * Ishmael Simon MD - 07/23/2024 10:53 AM EDTAssociated Problem(s): DDD (degenerative disc disease), lumbar Pain stable and follow with pain management for procedures. * Ishmael Simon MD - 07/23/2024 10:53 AM EDTAssociated Problem(s): Class 2 severe obesity due to excess calories with serious comorbidity and body mass index (BMI) of 38.0 to 38.9 in adult ([facility]) Weight loss indicated. * Ishmael Simon MD - 07/23/2024 10:52 AM EDTAssociated Problem(s): Chronic obstructive pulmonary disease ([facility]) Increased symptoms and treat with levaquin and [...] Continue home PT exercises. documented in this [facility]02-05-2025 History of Present illness Narrative* Valentino Ty [...] once daily at bedtime., Disp: , Rfl: jcscbqpnuyo-urcwlqehj-sbxkjhbp (TRELEGY-ELLIPTA) 100-62.5-25 mcg blister with device, Inhale [...] exam, discussion and plan. documented in this encounterEast [facility] Hospital Work Phone: 1(251) 474-519002-05-2025 Instructions* Patient Instructions* Yola Morrow LPN - [...] follow up per routine documented in this encounterEast [facility] Hospital Work Phone: [phone] History of Present illness Narrative* Ishmael Simon MD - 06/06/2024 10:12 AM ESTAssociated Problem(s): Essential hypertension, benign (CMS/HCC) BP controlled and monitor PRN. * Ishmael Simon MD - 06/06/2024 10:12 AM ESTAssociated Problem(s): Class 2 severe obesity due to excess calories with serious comorbidity and body mass index (BMI) of 36.0 to 36.9 in adult ([facility]) Weight loss indicated. * Ishmael Simon MD - 06/06/2024 10:11 AM ESTAssociated Problem(s): Chronic obstructive pulmonary disease ([facility]) Recent exacerbation but improved. Complete prednisone as directed. Use albuterol PRN. * Ishmael Simon MD - 06/06/2024 10:11 AM ESTAssociated Problem(s): Chronic hypoxic respiratory failure ([facility]) Normal SpO2 on room air and continue [...] HFA 90 mcg/act inhaler documented in this encounterMosaic Life Care at St. JosephSytebrugkt81-26-5992 Note Gram Stain Evaluation This specimen is of good quality and is acceptable for routine [facility] JosephFggxzclunq12-34-8625 NoteGRAM STAIN EVALUATIONbacterial culture.[facility] HospitalDyfimyeilm57-22-8613 History of Present illness Narrative* Amador Son [...] A DAY cetirizine (ZYRTEC) 10 mg, Nightly dmgkxvtcrsr-wgpvoyaop-plgatkba (TRELEGY-ELLIPTA) 100-62.5-25 mcg blister with device 1 [...] status post dual- chamber pacemaker implant (Medtronic [place] XT DR MRI) on August 05, 2023. [...] to prepare this document. documented in this [facility] Work Phone: [phone]) 651-892601-15-2025 Instructions* Patient Instructions* Jazz Flynn RN - [...] DR. AMADOR SON MD documented in this [facility] Work Phone: [phone]) 709-650712-17-2024 History of Present illness Narrative* Ishmael Simon MD - 04/24/2024 11:38 AM ESTAssociated Problem(s): Class 2 severe obesity due to excess calories with serious comorbidity and body mass index (BMI) of 37.0 to 37.9 in adult ([facility]) Weight up 28 pounds in past year. Add ozempic. * Ishmael Simon MD - 04/24/2024 11:38 AM ESTAssociated Problem(s): Essential hypertension, benign ([facility]) BP controlled and monitor PRN. * Ishmael Simon MD - 04/24/2024 11:38 AM ESTAssociated Problem(s): Type 2 diabetes mellitus with hyperglycemia, without long-term current use of insulin ([facility]) Not checking BS and due for A1C. [...] Items Addressed This Visit Essential hypertension, benign ([facility]) BP controlled and monitor PRN. Type 2 diabetes mellitus with hyperglycemia, without long-term current use of insulin ([facility]) Not checking BS and due for A1C. Add ozempic. Relevant Medications semaglutide (Ozempic, 0.25 or 0.5 MG/DOSE,) 2 MG/1.5ML solution pen-injector Other Relevant Orders Hemoglobin A1c Class 2 severe obesity due to excess calories with serious comorbidity and body mass index (BMI) of37.0 to 37.9 in adult ([facility]) Weight up 28 pounds in past year. [...] Discussed daily Aspirin therapy. documented in this encounterMosaic Life Care at St. JosephDnzfdzshce32-07-7110 History of Present illness Narrative* Ishmael Simon [...] Chlamydia DNA probe, direct documented in this encounterMosaic Life Care at St. JosephOrtlpgffvx16-73-6891 History of Present illness Narrative* Ishmael Simon MD - 01/13/2024 10:05 AM EDTAssociated Problem(s): Type 2 diabetes mellitus with hyperglycemia, without long-term current use of insulin (CMS/[facility]) Not checking BS and A1C 5.8. Stick to [place] diet and limit carbs. * Ishmael Simon MD - 01/13/2024 10:05 AM EDTAssociated Problem(s): Primary osteoarthritis of right hip Pain stable and use percocet PRN. Continue home PT exercises. * Ishmael Simon MD - 01/13/2024 10:05 AM EDTAssociated Problem(s): Essential hypertension, benign ([facility]) BP controlled and monitor PRN. * Ishmael Simon MD - 01/13/2024 10:05 AM EDTAssociated Problem(s): DDD (degenerative disc disease), lumbar Pain worse and follow with pain management for ablation. * Ishmael Simon MD - 01/13/2024 10:04 AM EDTAssociated Problem(s): Chronic obstructive pulmonary disease ([facility]) Symptoms worse and treat with prednisone. Continue trelegy and use albuterol PRN. * Ishmael Simon MD - 01/13/2024 10:04 AM EDTAssociated Problem(s): Chronic diastolic heart failure ([facility]) Occasional edema and use lasix PRN. Elevate [...] He is alert. Assessment/Plan documented in this encounterMosaic Life Care at St. JosephTofsrtjemg31-56-0411 Miscellaneous Notes* Telephone Encounter - Sheri Chau [...] if pain get's worse. [facility] Telephone encounter Note* Telephone Encounter - [...] surgery. Let me know. Thanks, Dr. Galindo [facility]08-19-[facility]24 Telephone encounter Note* Telephone Encounter - [...] vascular surgery referral if pain get's worse. [facility]07[facility] History of Present illness Narrative* Roc Ramsey, - 12/07/2023 10:00 AM EDT Images from the original note were not included. [facility] [address] [id number] progress NOTE CHIEF COMPLAINT Chief Complaint Patient presents with Follow-up RECHECK INGUINAL HERNIA, RIGHT Liliananakul Michaels . is a 58 y.o. male who presents along with his with complaints of pain in his right groin and right anterior thigh. He used to receive radiofrequency ablation from the [facility] pain management but the last 1 has [...] History: Diagnosis Date Acute renal failure (ARF) ([facility]) unknown origin Arrhythmia Bradycardia Bilateral carpal tunnel syndrome BPH with urinary obstruction Bradycardia Chronic hypoxemic respiratory failure ([facility]) Cigarette nicotine dependence COPD (chronic obstructive pulmonary disease) ([facility]) Degenerative disc disease, lumbar Dental disease Diabetes mellitus ([facility]) ED (erectile dysfunction) Hypertension Insomnia USP (current) use of inhaled steroids Morbid obesity ([facility]) Nasal polyps Obesity TAHIR (obstructive sleep apnea) PVD (peripheral vascular disease) (CMS-HCC) Requires continuous at home supplemental oxygen 2 L NC at HS Right inguinal hernia Skin lesion Tobacco abuse Visual impairment glasses Vitamin D deficiency SURGICAL HISTORY Past Surgical History: Procedure Laterality Date CARDIAC PACEMAKER PLACEMENT 08/05/2023 COLONOSCOPY N/A 08/24/2019 Performed by Germán Dukes MD at [facility] CYST REMOVAL from neck DAVINCI REPAIR HERNIA INGUINAL Right 06/30/2021 Performed by Roc Ramsey DO at [facility] ELBOW SURGERY right JOINT REPLACEMENT right FOREIGN [...] Resource Strain: Low Risk (10/09/2023) [facility] Overall Financial Resource Strain (CARDIA) Difficulty of Paying Living Expenses: Not hard at all Food Insecurity: No Food Insecurity (12/07/2023) Hunger Screening Food Insecurity - Worry: Never True Food Insecurity - Inability: Never True Transportation Needs: No Transportation Needs (10/09/2023) [facility] PRAPARE - Transportation Lack of Transportation (Medical): No Lack of Transportation (Non-Medical): No Physical Activity: Insufficiently Active (10/09/2023) [facility] Exercise Vital Sign Days of Exercise per Week: 2 days Minutes of Exercise per Session: 10 min Stress: No Stress Concern Present (10/09/2023) [facility] [place] [employer] - Occupational Stress Questionnaire Feeling of Stress : Not at all Social Connections: Unknown (10/09/2023) [facility] Social Connection and Isolation Panel [NHANES] Frequency of Communication with Friends and Family: More than three times a week Frequency of Social Gatherings with Friends and Family: Not on file Attends Shinto Services: Patient declined Active Member of Clubs or Organizations: No Attends Club or Organization Meetings: Patient declined Marital Status: Living with partner Interpersonal Safety: Not on file Housing Instability: Low Risk (10/09/2023) [facility] Housing Stability Vital Sign Unable to Pay [...] refer back to pain management at the [facility] 3. Left inguinal hernia asymptomatic will observe 4. Umbilical hernia asymptomatic will observe 5. Weight loss recommended He and his significant other understood all the above. Evaluation included: Preparing to see the patient (e.g., review of tests) Obtaining and/or reviewing separately obtained history Performing a medically appropriate examination and/or evaluation Counseling and educating the patient/family/caregiver Referring and communicating with other health ostomy care nurse No primary diagnosis found. Roc Ramsey DO This note was created with the assistance of a speech recognition program. While intending to generate a timely document that accurately reflects the content of the visit, no guarantee can be provided that every grammatical or spelling mistake has been or will be identified or corrected. Thank you for your understanding. documented in this encounterC[facility]07-31-2024 Instructions* Patient Instructions* Roc Ramsey DO - 12/07/2023 10:00 AM EDT Are You Ready To Kick The Habit? Free Tobacco Cessation Resources [facility] Tobacco [facility] Services [facility] Tobacco Treatment Centers provide all employees with free tobacco cessation services that include: Counseling to understand nicotine addiction Education about medications that can help you successfully quit Assistance with developing a plan to quit Call to set up an individual appointment or find out when group classes will be held: Allen acharya [facility]: [phone] [facility]: [phone] [facility]: [phone] [facility]: [phone] Quit Smoking Action Plan and Resources [facility] offers an eight-week, online smoking cessation plan to all [facility] employees, regardless of whether [place] is your medical insurance provider. Go to [email or web address] and click the Health Risk Assessment and Resources link to get started. In the [employer] menu, click Action Plans instead of Health Risk Assessment to access the Quit Smoking Action Plan. Additional smoking cessation resources are also available to all [facility] employees on the [employer] web page at www.[employer]/quitsmoking. [place] Tobacco Cessation Program If [place] is your medical insurance provider, there are more free resources available to you, including: No copays or deductibles on local tobacco cessation counseling services to help you quit Prescription assistance for tobacco cessation medications to help you quit For details about the tobacco cessation program available to [place] members, go to www.[employer] (Search: Tobacco Cessation Program). [place] Tobacco Quit Line 6-143-RGJF-NOW ( ) is a toll-free, telephonic service that helps [place] residents quit smoking and using tobacco. It is staffed by experts who tailor a quit plan for you and provide you with advice. [place] Tobacco Quit Line 2-739-CZMH-NOW ( ) is a toll-free, telephonic service that helps [place] residents quit smoking and using tobacco. It is staffed by experts who tailor a quit plan for you and provide you with advice. Two weeks of nicotine replacement therapy may be provided at no charge, if needed. Additional Resources These national organizations also offer free information and resources to help you quit tobacco: [place] Cancer Society--www.cancer.org/healthy/stayawayfromtobacco [place] Heart Association--www.heart.org (Search: Quit Smoking) Centers for Disease Control and Prevention--www.cdc.gov/tobacco [place] Lung Association--www.lungusa.org documented in this encounterTriHealth Bethesda North HospitalSCIC SA [employer] [facility]FlintJwtdtk26-04-2473 History of Present illness Narrative* Naima Wright, LYNN-FREEZING ROOM WORKER - 11/09/2023 11:00 AM EDT CARDIOLOGY OFFICE [...] DAY cetirizine (ZYRTEC) 10 mg, oral, Nightly ukfgyaoktdx-frwwuooyh-ingcteov (TRELEGY-ELLIPTA) 100-62.5-25 mcg blister with device 1 [...] 68 bpm, prolonged AV conduction with a CA interval of 220 ms, QRS durations 100 [...] status post dual- chamber pacemaker implant (Medtronic [place] XT DR MCCORMICK) on August 05, 2023. [...] to prepare this document. documented in this [facility] Work Phone: 1(726) 163-165904-03-2024 History of Present illness Narrative* Amador Sno MD - 08/10/2023 12:45 PM EDT CARDIOLOGY [...] some point he had some evaluation in [place] that shows no significant obstructive coronary disease [...] night however but few episodes in the cubing machine tender hours were also noted 5. No symptoms [...] CHF (congestive heart failure) ([facility]) COPD (chronic obstructive pulmonary disease) ([facility]) Hypertension Social History Social History Tobacco Use [...] breakfast cetirizine (ZYRTEC) 10 mg, oral, Nightly ctlkuugkgig-nsadpcsfr-erbysccs (TRELEGY-ELLIPTA) 100-62.5-25 mcg blister with device 1 [...] to prepare this document. documented in this [facility] Work Phone: 1(681) 626-251604-03-2024 Instructions* Patient Instructions* Vero Mccarthy LPN - [...] Dr. Amador Son MD documented in this encounterEast [facility] Hospital Work Phone: 1([phone]) 639-626503-29-2024 Nurse Note* Ronda Souza RN - 08/05/2023 7:45 PM EDT Patient discharge instructions reviewed with patient and , verbalized understanding. Lt chest dressing remains dry/intact, no hematoma, no ecchymosis. Patient able to teachback site care instructions, follow up appointments. IV x2 removed and patient discharged to home via w/c. [facility]03-29-2024 Nurse Note* Ronda Souza RN - [...] needs at this time. documented in this [facility] Work Phone: 1(674) 326-634403-29-2024 Nurse Note* Ronda Souza RN - 08/05/2023 7:20 PM EDT Patient sitting up in chair, denies any complaints of incisional pain. Lt upper chest incision remains dry/intact. Will begin discharge instructions. [facility] Work Phone: 1([phone]) 488-873303-29-2024 Nurse Note* Ronda Souza RN - 08/05/2023 6:30 PM EDT Patient ambulated to BR, gait steady. Pacer rep has already met with patient and . Lt upper chest dressing remains dry/intact. Lt arm in immobilizer and ice pack over site. [facility] Work Phone: 1(187) 479-624603-29-2024 Note* Significant Event - Ramu Vidal RN - 08/05/2023 5:10 PM EDT Post EKG and CXR performed at bedside. Pt denies needs at this time. Left chest remains soft and stable with no hematoma or oozing. [facility] Work Phone: 1([phone]) 691-653603-29-2024 Miscellaneous Notes* Significant Event - Ramu Vidal [...] alternatives discussed with patient. documented in this encounterEast Ohio Regional Hospital Work Phone: [phone]) 549-933803-29-2024 Hospital Discharge instructions* Discharge Instructions* CHIDI Ferreira [...] your arm above shoulder level. Do not pickle sorter items that weigh greater than 10 lbs [...] have been instructed by the device company food service representative regarding remote home monitoring. There [...] Care Everywhere. * Pacemaker Insertion Discharge Instructions (Portuguese) documented in this [facility] Work Phone: 1(211) 718-495103-29-2024 Note* Significant Event - Ramu Vidal RN [...] Pt denies further needs at this time. [facility] Work Phone: [phone]) 818-218703-29-2024 NoteTable formatting from the original result was [...] of infection. The patient should call the care connector immediately if symptoms recur, or for any [...] model number W1 DR 017 number [id number]. Right atrial lead Medtronic 5076/45 serial number [id number] 8 mm [id number]. Imp (more content not included)...[id number] Note* Pre-Sedation Documentation - Amador Son MD - 08/05/2023 4:40 PM EDT Sedation Plan ASA 2 Mallampati class: II. Risks, benefits, and alternatives discussed with patient. [facility] Work Phone: [phone]) 895-821503-29-2024 Attending History and physical note* Amador Son [...] some point he had some evaluation in [place] that shows no significant obstructive coronary disease [...] night however but few episodes in the cubing machine tender hours were also noted 5. No symptoms [...] breakfast cetirizine (ZYRTEC) 10 mg, oral, Nightly uxpsfknlrlr-mydiohdmn-lncatslt (TRELEGY-ELLIPTA) 100-62.5-25 mcg blister with device 1 [...] software was utilized to prepare this document. [facility] Work Phone: [phone]) 256-301203-29-2024 History and physical note* Amador Son MD [...] some point he had some evaluation in [place] that shows no significant obstructive coronary disease [...] night however but few episodes in the cubing machine tender hours were also noted 5. No symptoms [...] breakfast cetirizine (ZYRTEC) 10 mg, oral, Nightly lswlltyaywo-bufhutgrq-ajpdukrx (TRELEGY-ELLIPTA) 100-62.5-25 mcg blister with device 1 [...] to prepare this document. [facility] 1(467) 886-229303-29-2024 Nurse Note* Ramu Vidal RN - 08/05/2023 3:20 PM EDT Sterling from [employer] in room speaking to Pt and SO educating on home device monitor. [facility]03-29-2024 Nurse Note* Ramu Vidal RN - 08/05/2023 1:25 PM EDT Pt returned to room after echocardiogram. Denies needs at this time. [facility] Work Phone: 1(233) 474-166103-15-2024 History of Present illness Narrative* Amador Son [...] some point he had some evaluation in [place] that shows no significant obstructive coronary disease [...] night however but few episodes in the cubing machine tender hours were also noted 5. No symptoms [...] breakfast cetirizine (ZYRTEC) 10 mg, oral, Nightly psyhngrjjti-stxtqsptg-btgxltke (TRELEGY-ELLIPTA) 100-62.5-25 mcg blister with device 1 [...] to prepare this document. [facility] Work [facility] 1(179) 762-524803-15-2024 Instructions* Patient Instructions* Jazz Flynn RN - [...] DR. AMADOR SON MD [facility] Work Phone: [phone]) 792-330303-14-2023 NoteCONSULTATION PROCEDURE DATE: 07/20/2022 Procedure was performed [...] as right medial portion of his leg.[id number] NoteCONSULTATION CONSULTATION DATE: 05/07/2022 HISTORY OF PRESENT [...] in three months' time unless otherwise indicated.[facility] [id number] NoteCONSULTATION CONSULTATION DATE: 01/14/2022 HISTORY OF PRESENT [...] it was recommended that he see a candy attendant, which he did do. He did a Holter monitor study and is following up with his candy attendant on 01/28/2022. Current medications include gabapentin 300 [...] Patient agrees with the plan of care.[id number] NoteCONSULTATION CONSULTATION DATE: 11/19/2021 This is a [...] to S1. Activities such as standing, walking, cubing machine tender and evening hours, stairs, bending and physical [...] be followed up in the clinic post-procedure. [facility] Signed and Approved by: YOLA COLMENARES . 11/27/2021 14:13:00[facility]06-16-2022 NoteCONSULTATION CONSULTATION DATE: 10/22/2021 HISTORY OF [...] patient agrees with the plan of care. [facility] Signed and Approved by: YOLA COLMENARES . 11/04/2021 16:23:00[facility]05-26-2022 NoteCONSULTATION CONSULTATION DATE: 10/01/2021 HISTORY OF [...] shape. He has seen Dr. Nunn in [place] in the past regarding his back, and [...] Patient agrees with the plan of care. [facility] Signed and Approved by: YOLA COLMENARES . 10/08/2021 16:01:00[facility]04-25-2021 NoteMicrobiology PROCEDURE: Blood Culture Charcoal [R1] [...] This test was performed at: [facility], [address] [place] [address], [id number] , , [facility] CenterComment on above:Performed By: #### [id number] ####[facility] [id number] [place], [place] [id number] NoteMicrobiology PROCEDURE: Blood Culture Charcoal [R1] SOURCE: [...] This test was performed at: [facility], [address] [place] [address], [address] [place] [address], [facility]iUpper [facility] Medical CenterComment on above:Performed By: #### [id number] ####[facility] [id number] [place], [place] [address]Sddjsfjhib note* Diagnosis 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 Sinus bradycardia Other specified cardiac dysrhythmias Establishing care with new doctor, encounter for BMI 34.0-34.9,adult Sick sinus syndrome (CMS/HCC) Sinoatrial node dysfunction Simple chronic bronchitis (CMS/HCC) Simple chronic bronchitis Current smoker Other fatigue Preoperative cardiovascular examination Pre-operative cardiovascular examination documented in this encounter [facility] Work Phone: Evaluation note* Diagnosis Other [...] dysfunction Other fatigue documented in this encounter [facility] Work Phone: Evaluation note* Diagnosis Localized swelling on left hand S/P placement of cardiac pacemaker 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 Abnormal stress test Other nonspecific abnormal cardiovascular system function study Sinus bradycardia Other specified cardiac dysrhythmias Sick sinus syndrome (CMS/HCC) Sinoatrial node dysfunction Essential hypertension, benign BMI 34.0-34.9,adult Current smoker documented in this encounter [facility] Work Phone: Evaluation note* Diagnosis Localized swelling on left hand S/P placement of cardiac pacemaker documented in this encounter [facility] Work Phone: Evaluation note* Diagnosis Cardiac pacemaker in situ Sinoatrial node dysfunction (Multi) Sinoatrial node dysfunction documented in this encounter [facility] Work Phone: Evaluation note* Diagnosis Cardiac pacemaker in situ Sinoatrial node dysfunction (Multi) Sinoatrial node dysfunction documented in this encounter [facility] Work Phone: Evaluation note* Diagnosis Type [...] intervertebral disc documented in this encounter [facility] HealthcareEvaluation noteNo assessment information availableWooster [facility] Work Phone: Evaluation note* Diagnosis MRI [...] (pediatric) Current smoker documented in this encounter [facility] Work Phone: Evaluation note* Diagnosis Pacemaker Cardiac pacemaker in situ documented in this encounter [facility] Work Phone: Evaluation note* Diagnosis Type [...] in adult (CMS/HCC) documented in this encounter [facility] HealthcareEvaluation note* Diagnosis Cardiac pacemaker in situ Sinoatrial node dysfunction (Multi) Sinoatrial node dysfunction documented in this encounter [facility] Work Phone: Evaluation note* Diagnosis Degeneration of lumbar intervertebral disc Degeneration of lumbar or lumbosacral intervertebral disc documented in this encounter [facility] HealthcareEvaluation note* Diagnosis Type 2 diabetes [...] examination of urine documented in this encounter [facility] HealthcareEvaluation note* Diagnosis Type 2 [...] intervertebral disc documented in this encounter [facility] HealthcareEvaluation note* Diagnosis Cardiac pacemaker in situ- Primary Sick sinus syndrome (Multi) Sinoatrial node dysfunction MRI safe cardiac pacemaker in situ Abnormal EKG Nonspecific abnormal electrocardiogram (ECG) (EKG) Chronotropic incompetence Other specified conduction disorder Sinoatrial node dysfunction (Multi) Sinoatrial node dysfunction Sinus bradycardia Other specified cardiac dysrhythmias Current smoker BMI 37.0-37.9, adult documented in this encounter [facility] Work Phone: Evaluation note* Diagnosis Sinus bradycardia Other specified cardiac dysrhythmias Sick sinus syndrome (Multi) Sinoatrial node dysfunction Chronotropic incompetence Other specified conduction disorder MRI safe cardiac pacemaker in situ documented in this encounter [facility] Work Phone: Evaluation note* Diagnosis Type [...] intervertebral disc documented in this encounter [facility] HealthcareEvaluation note* Diagnosis Type 2 diabetes [...] intervertebral disc documented in this encounter [facility] HealthcareEvaluation note* Diagnosis Type 2 diabetes [...] hyperglycemia, without long-term current use of insulin ([facility]/HCC)- Primary Essential hypertension, benign (CMS/HCC) Essential hypertension, benign Chronic diastolic heart failure (CMS/HCC) Chronic diastolic heart failure DDD (degenerative disc disease), lumbar Degeneration of lumbar or lumbosacral intervertebral disc Primary osteoarthritis of right hip Chronic obstructive pulmonary disease, unspecified COPD type (CMS/HCC) Chronic pain of both shoulders Type 2 diabetes mellitus with other specified complication, without long-term current use of insulin ([facility]) Vasculogenic erectile dysfunction, unspecified vasculogenic erectile dysfunction type Type 2 diabetes mellitus with diabetic peripheral angiopathy without gangrene, without long-term current use of insulin ([facility]) Peripheral vascular disease, unspecified (I73.9) Peripheral vascular [...] hyperglycemia, without long-term current use of insulin ([facility]) Essential hypertension, benign (CMS/HCC) Essential hypertension, benign Class 2 severe obesity due to excess calories with serious comorbidity and body mass index (BMI) of37.0 to 37.9 in adult ([facility]) Chronic obstructive pulmonary disease with acute exacerbation (CMS/[facility])- Primary Chronic hypoxic respiratory failure (CMS/[facility]) Class 2 severe obesity due to excess calories with serious comorbidity and body mass index (BMI) of36.0 to 36.9 in adult ([facility]) Essential hypertension, benign (CMS/HCC) Essential hypertension, benign documented in this encounter [facility] HealthcareEvaluation note* Diagnosis Sick sinus syndrome (Multi)- Primary Sinoatrial node dysfunction Chronotropic incompetence Other specified conduction disorder Peripheral vascular disease, unspecified ([facility]) Peripheral vascular disease, unspecified Pacemaker Cardiac pacemaker in situ Essential hypertension, benign Sinus bradycardia Other specified cardiac dysrhythmias Hyperlipidemia, unspecified hyperlipidemia type Dyspnea on exertion Other dyspnea and respiratory abnormality BMI 37.0-37.9, adult Former smoker Personal history of tobacco use, presenting hazards to health Mild coronary artery disease documented in this encounter [facility] Work Phone: Evaluation note* Diagnosis Right leg pain- Primary Pain in soft tissues of limb Tobacco abuse Tobacco use disorder Class 3 severe obesity due to excess calories with serious comorbidity in adult, unspecified BMI ([facility]-HCC) Left inguinal hernia Inguinal hernia without mention of obstruction or gangrene, unilateral or unspecified, (not specified as recurrent) Claudication ([facility]-HCC) Unspecified peripheral vascular disease [facility] Diagnosis Claudication ([facility])- Primary Unspecified peripheral vascular disease [facility]* Diagnosis Type 2 diabetes [...] index (BMI) of37.0 to 37.9 in adult ([facility]) Chronic obstructive pulmonary disease with acute exacerbation (CMS/[facility])- Primary Chronic hypoxic respiratory failure (CMS/[facility]) Class 2 severe obesity due to excess calories with serious comorbidity and body mass index (BMI) of36.0 to 36.9 in adult ([facility]) Essential hypertension, benign (CMS/HCC) Essential hypertension, benign Degeneration of lumbar intervertebral disc Degeneration of lumbar or lumbosacral intervertebral disc documented in this encounter [facility] HealthcareEvaluation note* Diagnosis Type 2 diabetes mellitus with hyperglycemia, without long-term current use of insulin ([facility]/HCC)- Primary Essential hypertension, benign (CMS/HCC) Essential hypertension, benign Chronic diastolic heart failure (CMS/HCC) Chronic diastolic heart failure DDD (degenerative disc disease), lumbar Degeneration of lumbar or lumbosacral intervertebral disc Dyslipidemia ([facility]/HCC) Other and unspecified hyperlipidemia Screening PSA (prostate [...] complication, without long-term current use of insulin ([facility]) Vasculogenic erectile dysfunction, unspecified vasculogenic erectile dysfunction type Type 2 diabetes mellitus with diabetic peripheral angiopathy without gangrene, without long-term current use of insulin ([facility]) Peripheral vascular disease, unspecified (I73.9) Peripheral vascular disease, unspecified Type 2 diabetes mellitus with hyperglycemia, without long-term current use of insulin ([facility]/HCC)- Primary Essential hypertension, benign ([facility]) Essential hypertension, benign Chronic diastolic heart failure ([facility]) Chronic diastolic heart failure Chronic obstructive pulmonary disease, unspecified COPD type (CMS/[facility]) DDD (degenerative disc disease), lumbar Degeneration of lumbar or lumbosacral intervertebral disc Primary osteoarthritis of right hip Body mass index (BMI) 35.0-35.9, adult Dysuria- Primary Acute prostatitis Pyuria Other nonspecific finding on examination of urine Medicare annual wellness visit, subsequent- Primary Type 2 diabetes mellitus with hyperglycemia, without long-term current use of insulin ([facility]) Essential hypertension, benign ([facility]) Essential hypertension, benign Class 2 severe obesity due to excess calories with serious comorbidity and body mass index (BMI) of37.0 to 37.9 in adult ([facility]) Chronic obstructive pulmonary disease with acute exacerbation ([facility])- Primary Chronic hypoxic respiratory failure ([facility]) Class 2 severe obesity due to excess calories with serious comorbidity and body mass index (BMI) of36.0 to 36.9 in adult ([facility]) Essential hypertension, benign (CMS/[facility]) Essential hypertension, benign Type 2 diabetes mellitus with hyperglycemia, without long-term current use of insulin ([facility])- Primary Essential hypertension, benign ([facility]) Essential hypertension, benign Chronic diastolic heart failure ([facility]) Chronic diastolic heart failure Primary osteoarthritis of right hip Degeneration of intervertebral disc of lumbar region with discogenic back pain Chronic obstructive pulmonary disease with acute exacerbation ([facility]) Peripheral vascular disease, unspecified ([facility]) Peripheral vascular disease, unspecified Class 2 severe obesity due to excess calories with serious comorbidity and body mass index (BMI) of38.0 to 38.9 in adult ([facility]) Type 2 diabetes mellitus with other specified complication ([facility]) Male erectile dysfunction, unspecified Type 2 diabetes mellitus with diabetic peripheral angiopathy without gangrene ([facility]) documented in this encounter [facility] HealthcareEvaluation note* Diagnosis Type 2 diabetes [...] intervertebral disc documented in this encounter [facility] HealthcareEvaluation note* Diagnosis Cardiac pacemaker in situ documented in this encounter [facility] Work Phone: Evaluation note* Diagnosis Type [...] gangrene, without long-term current use of insulin ([facility]) Peripheral vascular disease, unspecified (I73.9) Peripheral vascular disease, unspecified Type 2 diabetes mellitus with hyperglycemia, without long-term current use of insulin ([facility])- Primary Essential hypertension, benign ([facility]) Essential hypertension, benign Chronic diastolic heart failure ([facility]) Chronic diastolic heart failure Chronic obstructive pulmonary disease, unspecified COPD type ([facility]) DDD (degenerative disc disease), lumbar Degeneration of lumbar or lumbosacral intervertebral disc Primary osteoarthritis of right hip Body mass index (BMI) 35.0-35.9, adult Dysuria- Primary Acute prostatitis Pyuria Other nonspecific finding on examination of urine Medicare annual wellness visit, subsequent- Primary Type 2 diabetes mellitus with hyperglycemia, without long-term current use of insulin ([facility]) Essential hypertension, benign ([facility]) Essential hypertension, benign Class 2 severe obesity due to excess calories with serious comorbidity and body mass index (BMI) of37.0 to 37.9 in adult ([facility]) Chronic obstructive pulmonary disease with acute exacerbation ([facility])- Primary Chronic hypoxic respiratory failure ([facility]) Class 2 severe obesity due to excess calories with serious comorbidity and body mass index (BMI) of36.0 to 36.9 in adult ([facility]) Essential hypertension, benign ([facility]) Essential hypertension, benign Type 2 diabetes mellitus with hyperglycemia, without long-term current use of insulin ([facility])- Primary Essential hypertension, benign ([facility]) Essential hypertension, benign Chronic diastolic heart failure ([facility]) Chronic diastolic heart failure Primary osteoarthritis of right hip Degeneration of intervertebral disc of lumbar region with discogenic back pain Chronic obstructive pulmonary disease with acute exacerbation ([facility]) Peripheral vascular disease, unspecified ([facility]) Peripheral vascular disease, unspecified Class 2 severe obesity due to excess calories with serious comorbidity and body mass index (BMI) of38.0 to 38.9 in adult ([facility]) Type 2 diabetes mellitus with other specified complication Male erectile dysfunction, unspecified Type 2 diabetes mellitus with diabetic peripheral angiopathy without gangrene ([facility]) Carpal tunnel syndrome, bilateral upper limbs Carpal tunnel syndrome documented in this encounter [facility] HealthcareEvaluation note* Diagnosis Type 2 diabetes [...] index (BMI) of37.0 to 37.9 in adult ([facility]) Chronic obstructive pulmonary disease with acute exacerbation (HCC)- Primary Chronic hypoxic respiratory failure (HCC) Class 2 severe obesity due to excess calories with serious comorbidity and body mass index (BMI) of36.0 to 36.9 in adult ([facility]) Essential hypertension, benign Essential hypertension, benign Type [...] index (BMI) of38.0 to 38.9 in adult ([facility]) Type 2 diabetes mellitus with other specified complication (HCC) Male erectile dysfunction, unspecified Type 2 diabetes mellitus with diabetic peripheral angiopathy without gangrene (HCC) Degeneration of lumbar intervertebral disc Degeneration of lumbar or lumbosacral intervertebral disc documented in this encounter [facility] HealthcareEvaluation note* Diagnosis Type 2 diabetes [...] index (BMI) of37.0 to 37.9 in adult ([facility]) Chronic obstructive pulmonary disease with acute exacerbation (HCC)- Primary Chronic hypoxic respiratory failure (HCC) Class 2 severe obesity due to excess calories with serious comorbidity and body mass index (BMI) of36.0 to 36.9 in adult ([facility]) Essential hypertension, benign Essential hypertension, benign Type [...] index (BMI) of38.0 to 38.9 in adult ([facility]) Type 2 diabetes mellitus with other specified [...] index (BMI) of39.0 to 39.9 in adult ([facility]) Encounter for long-term (current) use of medications Encounter for long-term (current) use of other medications Screening PSA (prostate specific antigen) Special screening for malignant neoplasm of prostate Vitamin D insufficiency Dyslipidemia Other and unspecified hyperlipidemia documented in this encounter [facility]* Diagnosis Type 2 diabetes [...] gangrene, without long-term current use of insulin ([facility]) Peripheral vascular disease, unspecified (I73.9) Peripheral vascular [...] hyperglycemia, without long-term current use of insulin ([facility]) Essential hypertension, benign Essential hypertension, benign Class 2 severe obesity due to excess calories with serious comorbidity and body mass index (BMI) of37.0 to 37.9 in adult ([facility]) Chronic obstructive pulmonary disease with acute exacerbation (HCC)- Primary Chronic hypoxic respiratory failure (HCC) Class 2 severe obesity due to excess calories with serious comorbidity and body mass index (BMI) of36.0 to 36.9 in adult ([facility]) Essential hypertension, benign Essential hypertension, benign Type [...] index (BMI) of38.0 to 38.9 in adult ([facility]) Type 2 diabetes mellitus with other specified [...] index (BMI) of39.0 to 39.9 in adult ([facility]) Encounter for long-term (current) use of medications Encounter for long-term (current) use of other medications Screening PSA (prostate specific antigen) Special screening for malignant neoplasm of prostate Vitamin D insufficiency Dyslipidemia Other and unspecified hyperlipidemia Degeneration of lumbar intervertebral disc Degeneration of lumbar or lumbosacral intervertebral disc documented in this encounter [facility]* Diagnosis Cardiac pacemaker in situ- Primary Chronotropic incompetence Other specified conduction disorder Sick sinus syndrome (Multi) Sinoatrial node dysfunction Essential hypertension, benign Pacemaker Cardiac pacemaker in situ Sinus bradycardia Other specified cardiac dysrhythmias Former smoker Personal history of tobacco use, presenting hazards to health BMI 38.0-38.9,adult documented in this encounter [facility] Work Phone: Evaluation note* Diagnosis Type [...] index (BMI) of37.0 to 37.9 in adult ([facility]) Chronic obstructive pulmonary disease with acute exacerbation (HCC)- Primary Chronic hypoxic respiratory failure (HCC) Class 2 severe obesity due to excess calories with serious comorbidity and body mass index (BMI) of36.0 to 36.9 in adult ([facility]) Essential hypertension, benign Essential hypertension, benign Type [...] index (BMI) of38.0 to 38.9 in adult ([facility] [facility]) Type 2 diabetes mellitus with other specified [...] index (BMI) of39.0 to 39.9 in adult ([facility]) Encounter for long-term (current) use of medications Encounter for long-term (current) use of other medications Screening PSA (prostate specific antigen) Special screening for malignant neoplasm of prostate Vitamin D insufficiency Dyslipidemia Other and unspecified hyperlipidemia Degeneration of lumbar intervertebral disc Degeneration of lumbar or lumbosacral intervertebral disc documented in this encounter [facility] HealthcareEvaluation note* Diagnosis Type 2 diabetes [...] index (BMI) of37.0 to 37.9 in adult ([facility]) Chronic obstructive pulmonary disease with acute exacerbation (HCC)- Primary Chronic hypoxic respiratory failure (HCC) Class 2 severe obesity due to excess calories with serious comorbidity and body mass index (BMI) of36.0 to 36.9 in adult ([facility]) Essential hypertension, benign Essential hypertension, benign Type [...] index (BMI) of38.0 to 38.9 in adult ([facility]) Type 2 diabetes mellitus with other specified [...] index (BMI) of39.0 to 39.9 in adult ([facility]) Encounter for long-term (current) use of medications [...] pacemaker in situ documented in this encounter [facility] Work Phone: History of Present illness Narrative* Patient is here for cardiovascular evaluation for second opinion in regard to documents resting sinus bradycardia. The patient is 56-year-old with history of tobacco use and COPD was evaluated recently due to shortness of breath and his stress test showed questionable inferior wall ischemia. This led to a cardiac evaluation in [place] and its not clear to me whether [...] evaluation * 5 follow-up in 6 [facility] 600 DO Work Phone: History of Present illness Narrative* Patient is here for cardiovascular evaluation for second opinion in regard to documents resting sinus bradycardia. The patient is 56-year-old with history of tobacco use and COPD was evaluated recently due to shortness of breath and his stress test showed questionable inferior wall ischemia. This led to a cardiac evaluation in [place] and its not clear to me whether [...] ischemic evaluation * 5 follow-up in 6 [facility] Work Phone: History of Present illness Narrative* Patient is here for cardiovascular evaluation for second opinion in regard to documents resting sinus bradycardia. The patient is 56-year-old with history of tobacco use and COPD was evaluated recently due to shortness of breath and his stress test showed questionable inferior wall ischemia. This led to a cardiac evaluation in [place] and its not clear to me whether [...] ischemic evaluation * 5 follow-up in 6 [facility] Work Phone: History of Present [...] ischemic evaluation. He underwent cardiac catheterization in [place] which showed no significant obstructive disease * [...] EKG or earlier if the need arise [facility] 600 DO Work Phone: InstructionsNot on filedocumented in this encounter [facility] N[facility]* Imaging (Routine) - Pending ReviewSpecialtyDiagnoses / ProceduresReferred By ContactReferred To Contact Cardiology Diagnoses Sinus bradycardia Sick sinus syndrome (Multi) Chronotropic incompetence MRI safe cardiac pacemaker in situ Procedures Cardiac Device Check - In Clinic Naima Wright, [facility] Phone: tel: fax: Referral IDStatusReasonStart DateExpiration DateVisits RequestedVisits [id number] Review Perform Procedure [facility] Work Phone: Reason for visit Narrative* Imaging (Routine) - Pending ReviewSpecialtyDiagnoses / ProceduresReferred By ContactReferred To ContactCardiology Diagnoses Cardiac pacemaker in situ Procedures Cardiac Device Check - Remote Amador Son MD [address] [place] [address] Phone: tel: fax: Referral IDStatusReasonStart DateExpiration DateVisits RequestedVisits [id number] Review Perform Procedure [facility] Work Phone: Reason for visit Narrative* Imaging (Routine) - Pending ReviewSpecialtyDiagnoses / ProceduresReferred By ContactReferred To ContactCardiology Diagnoses Cardiac pacemaker in situ Procedures Cardiac Device Check - In Clinic Amador Son MD [address] [place] [address] Phone: tel: fax: Referral IDStatusReasonStart DateExpiration DateVisits RequestedVisits [id number] Review Perform Procedure [facility] Work Phone: Reason for visit Narrative* Imaging (Routine) - Pending ReviewSpecialtyDiagnoses / ProceduresReferred By ContactReferred To ContactCardiology Diagnoses Cardiac pacemaker in situ Procedures Cardiac Device Check - Remote Amador Son MD [address] [place] [address] Phone: tel: fax: Referral IDStatusReasonStart DateExpiration DateVisits RequestedVisits [id number] Review Perform Procedure [facility] Work Phone: Summary Purpose Family History [...] Preoperative cardiovascular examination Procedures Transthoracic Echo Complete CA ECHO TTHRC R-T 2D W/WOM-MODE COMPL SPEC&COLR D Amador Son MD [address] [address] Referral IDStatusReasonStclarkton DateExpiration DateVisits RequestedVisits [id number] Review Perform Procedure /[id number] / ProceduresReferred By ContactReferred To Contact Diagnoses Sinus bradycardia Establishing care with new doctor, encounter for Procedures ECG 12 lead (Clinic Performed) Amador Son MD [address] [address] Referral IDStatusReasonStart DateExpiration DateVisits RequestedVisits [id number]/15/20243/088776EfwveckqrRdabgzkoe / Procedures Referred By ContactReferred To ContactRadiology Diagnoses Pacemaker Procedures XR chest 2 views Ana M Kumari, GUSSET 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 [address] [facility], [address] [address] Referral IDStatusReasonStart DateExpiration DateVisits RequestedVisits [id number] Perform Procedure [id number] / ProceduresReferred By ContactReferred To ContactCardiology Diagnoses Pacemaker Procedures Cardiac Device Check - In Clinic Ana M Kumari, GUS[employer] 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 [address] [facility], [address] [address] Referral IDStatusReasonStart DateExpiration DateVisits RequestedVisits [id number] Review Perform Procedure [id number] / ProceduresReferred By ContactReferred To ContactCardiology Diagnoses Localized swelling on left hand S/P placement of cardiac pacemaker Procedures Vascular US upper extremity venous duplex left Naima Wright, [facility] [address] [facility], [address] [address] Referral IDStatusReasonStart DateExpiration DateVisits RequestedVisits [id number] Perform Procedure /[id number] / ProceduresReferred By ContactReferred To ContactCardiology Diagnoses Cardiac pacemaker in situ Sinoatrial node dysfunction (Multi) Procedures Cardiac Device Check - Remote Amador Son MD [address] [address] Referral IDStatusReasonStart DateExpiration DateVisits RequestedVisits [id number] Review Perform Procedure /[id number] / ProceduresReferred By ContactReferred To ContactCardiology Diagnoses Sinus bradycardia Sick sinus syndrome (Multi) Chronotropic incompetence MRI safe cardiac pacemaker in situ Procedures Cardiac Device Check - In Clinic Naima Wright APRN-FREEZING ROOM WORKER [address] [address] Referral IDStatusReasonStart DateExpiration DateVisits RequestedVisits [id number] Review Perform Procedure [id number] / ProceduresReferred By ContactReferred To ContactCardiology Diagnoses Sick sinus syndrome (Multi) MRI safe cardiac pacemaker in situ Procedures Follow Up In Cardiology Naima Wright APRN-FREEZING ROOM WORKER [address] [facility], [address] [address] Amador Son MD [address] [place] [address] Referral IDStatusReasonStart DateExpiration DateVisits RequestedVisits [id number]/3/20247/3/259966JqzxqmrafSlfyqsdor / Procedures Referred By ContactReferred To Contact Diagnoses Sinus bradycardia Procedures ECG 12 lead (Clinic Performed) Naima Wright APRN-FREEZING ROOM WORKER [address] [address] Referral IDStatusReasonStart DateExpiration DateVisits RequestedVisits [id number]/3/20247/3/955405QlbkznzpcOtycnbxvd / Procedures Referred By ContactReferred To Contact Diagnoses Claudication ([facility]) Procedures Vas art doppler lwr bilat mult lev/PVR Roc Ramsey DO [address] [place] [address] Referral IDStatusReasonStart DateExpiration DateVisits RequestedVisits [id number] Review Chief Complaint and Reason for Visit [...] section and content) DATE CREATED AUTHOR 03/06/2021 [facility] DATE CREATED AUTHOR AUTHOR'S ORGANIZ ATION 03/12/[address] [facility] DATE CREATED AUTHOR AUTHOR'S ORGANIZ ATION 02/16/2022 [facility] DATE CREATED AUTHOR AUTHOR'S ORGANIZ ATION 07/16/2022 [facility] DATE CREATED AUTHOR AUTHOR'S ORGANIZ ATION 07/16/2022 [facility] DATE CREATED AUTHOR AUTHOR'S ORGANIZ ATION 09/17/2022 [facility] DATE CREATED AUTHOR AUTHOR'S ORGANIZ ATION 04/03/2024 [facility] DATE CREATED AUTHOR AUTHOR'S ORGANIZ ATION 11/16/2024 [facility] DATE CREATED AUTHOR AUTHOR'S ORGANIZ ATION 12/24/2024 [facility] DATE CREATED AUTHOR AUTHOR'S ORGANIZ ATION 02/17/[address] [facility] DATE CREATED AUTHOR AUTHOR'S ORGANIZ ATION 03/03/[address] [facility] DATE CREATED AUTHOR AUTHOR'S ORGANIZ ATION 03/10/2025 [facility] Reason for Visit (unrecogniz ed section and content) ReasonCommentsNew Patient VisitPt is here today as a new patient from Dr. HdzpecialtyDiagnoses / ProceduresReferred By ContactReferred To Contact Cardiology Diagnoses Sinus bradycardia Valentino Ty MD [address] [address] Amador Son MD [address] [facility], [address] [address] Referral IDStatusReasonStart DateExpiration DateVisits RequestedVisits [id number] Specialty Services Required [id number] / ProceduresReferred By ContactReferred To Contact Diagnoses Sinus bradycardia Chronotropic incompetence Sick sinus syndrome (CMS/HCC) Other fatigue Sinus bradycardia [R00.1] Chronotropic incompetence [I45.89] Sick sinus syndrome (CMS/HCC) [I49.5] Other fatigue [R53.83] Procedures CA INS NEW/RPLCMT PRM PM W/TRANSV ELTRD ATRIAL&VENT PPM IMPLANT DUAL Amador Son MD 254 [facility] [address] [place] [address] [address] [facility] [address] [place] [address] Referral IDStatusReasonBuellton DateExpiration DateVisits RequestedVisits [id number] CheckPatient is having swelling in his right handSpecialtyDiagnoses / ProceduresReferred By ContactReferred To Contact Cardiology Diagnoses Localized swelling on left hand S/P placement of cardiac pacemaker Procedures Vascular US upper extremity venous duplex left Yusuf-Naima Rodriguez E, [employer] 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 [address] [facility], [facility] [address] [place] [address] Referral IDStatusReasonBuellton DateExpiration DateVisits RequestedVisits [id number] Perform Procedure /[id number] / ProceduresReferred By ContactReferred To ContactCardiology Diagnoses Cardiac pacemaker in situ Sinoatrial node dysfunction (Multi) Procedures Cardiac Device Check - Remote Amador Son MD [address] [place] [address] [address] [place] [address] Referral IDStatusReasonStart DateExpiration DateVisits RequestedVisits [id number] Review Perform Procedure 1ReasonOnset DateCommentsMed Cxodoq484ReasonOnset Date CommentsMed Caqsmq4303/30/2024easonCommentsFollow-upPt is here today following up with device checkSpecialtyDiagnoses / ProceduresReferred By ContactReferred To Contact Diagnoses Sinus bradycardia Procedures ECG 12 lead (Clinic Performed) Naima Wright, [facility] [address] [facility], [address] [address] Referral IDStatusReasonStart DateExpiration DateVisits RequestedVisits [id number]/3/20247/022238MaiwrkmtmPndaklksd / Procedures Referred By ContactReferred To ContactCardiology Diagnoses Pacemaker Procedures Cardiac Device Check - In Clinic Ana M Kumari, [facility] [address] [address] Referral IDStatusReasonStart DateExpiration DateVisits RequestedVisits [id number] Review Perform Procedure [id number] / ProceduresReferred By ContactReferred To ContactRadiology Diagnoses Pacemaker Procedures XR chest 2 views Ana M Kumari, [facility] [address] [facility], [address] [address] Referral IDStatusReasonStart DateExpiration DateVisits RequestedVisits [id number] Perform Procedure 202511ReasonCommentsMedicare Annual Wellness Visit Subsequent WellnessReasonOnset DateCommentsMed Okbifs774ReasonCommentsFollow-up3 m ReasonOnset DateCommentsMed Gleres244ReasonCommentsMed RefillReason CommentsUTIReasonOnset DateCommentsMed Odysuy6704/27/2024eas[facility] following up after 6 months with device checkSpecialtyDiagnoses / ProceduresReferred By ContactReferred To ContactCardiology Diagnoses Sick sinus syndrome (Multi) MRI safe cardiac pacemaker in situ Procedures Follow Up In Cardiology Naima Wright, G[employer] 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 Phone: tel: fax: Amador Son MD [address] [place] [address] Phone: tel: fax: Referral IDStatusReasonStart DateExpiration DateVisits RequestedVisits [id number]/3/20247/3/247091XftkmcPlxst DateCommentsMed Refill 05/28/2024ReasonOnset DateCommentsMed Tejmnm8805/29/2024Re[facility] f/upReasonAbigail [place]ille 35067ll6sZqwccgkryTnozrefiu / ProceduresReferred By ContactReferred To ContactCardiology Diagnoses Chronotropic incompetence Procedures Follow Up In Cardiology Valentino Ty MD [address] [place] [address] Phone: tel: fax: Valentino Ty MD [address] [place], [place] [address] Phone: tel: fax: Referral IDStatAmerican Hospital Associationasonart DateExpiration DateVisits RequestedVisits [id number]/25/20247/25/475571XmaqtsPhqozqymTysbeu-isCGYUNBS INGUINAL HERNIA, RIGHTReasonOnset DateCommentsMed Cutdmw7006/26/2024ReasonOnset DateCommentsMed Ghlasm9808/22/2024ReasonOnset DateCommentsMed Xjrqqe4809/19/2024 ReasonOnset DateCommentsMed Lrbtno5910/18/2024ReasonCommentsFollow-dz8COhj Injury SORE ON RIGHT LEGReasonOnset DateCommentsMed Bhfkup2411/15/2024ReasonComments Follow-upPatient is present for 6 month follow up with device check for Cardiac pacemaker in situ.ReasonOnset DateCommentsMed Vycvpt1812/17/2024ReasonComments Follow-upNasal Congestion Care Teams (unrecognized sec tion and content) Team MemberRelationshipSpecialtyStart DateEnd Date Ishmael Simon MD [address] [place] [address] PCP - GeneralFamily Medicine06/29/23Team MemberRelationshipSpecialtyStart DateEnd Date Ishmael Simon MD [address] [place] [address] PCP - Generalmily Medicine06/29/23Team MemberRelationshipSpecialtyStart DateEnd Date Ishmael Simon MD [address] [place] [address] PCP - GeneralFamily Medicine06/29/23Team MemberRelationshipSpecialtyStart DateEnd Date Ishmael Simon MD [address] [place] [address] PCP - GeneralFamily Medicine06/29/23Team MemberRelationshipSpecialtyStart DateEnd Date Ishmael Simon MD PCP - GeneralFamily Medicine06/29/23Team MemberRelationshipSpecialtyStart DateEnd Date Ishmael Simon MD [address] [place] [address] PCP - GeneralFamily Medicine06/29/23 Naima Wright GUSSET 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 [address] [facility], [facility] [address] [place] [address] Nurse PractitionerCardiology11/07/23Team MemberRelationshipSpecialtyStart DateEnd Date Ishmael Simon MD [address] [place] [address] PCP - GeneralFamily Medicine10/10/23 Team Status: Active [...] Date Ishmael Simon MD [address] [place] [address] PCP - GeneralFamily Medicine06/29/23 Naima Wright, GUSSET 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 [address] [facility], [facility] [address] [place] [address] Nurse PractitionerCardiology11/07/23Team MemberRelationshipSpecialtyStart DateEnd Date Ishmael Simon MD [address] [place] [address] PCP - GeneralFamily Medicine06/29/23 Naima Wright APRN-FREEZING ROOM WORKER [address] [facility], [place] [address] [place] [address] Nurse PractitionerCardiology11/07/23Team MemberRelationshipSpecialtyStart DateEnd Date Ishmael Simon MD [address] [place] [address] PCP - GeneralFamily Medicine10/10/23Team MemberRelationshipSpecialtyStart DateEnd Date Ishmael Simon MD [address] [place] [address] PCP - GeneralFamily Medicine10/10/23Team MemberRelationshipSpecialtyStart DateEnd Date Ishmael Simon MD [address] [place] [address] PCP - GeneralFamily Medicine10/10/23Team MemberRelationshipSpecialtyStart DateEnd Date Ishmael Simon MD [address] [place] [address] PCP - GeneralFamily Medicine06/29/23 Naima Wright GUSSET 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 [address] [facility], [facility] [address] [place] [address] Nurse PractitionerCardiology11/07/23Team MemberRelationshipSpecialtyStart DateEnd Date Ishmael Simon MD [address] [place] [address] PCP - GeneralFamily Medicine10/10/23Team MemberRelationshipSpecialtyStart DateEnd Date Ishmael Simon MD [address] [place] [address] PCP - GeneralFamily Medicine10/10/23Team MemberRelationshipSpecialtyStart DateEnd Date Ishmael Simon MD [address] [place] [address] PCP - GeneralFamily Medicine10/10/23Team MemberRelationshipSpecialtyStart DateEnd Date Ishmael Simon MD [address] [place] [address] PCP - GeneralFamily Medicine10/10/23Team MemberRelationshipSpecialtyStart DateEnd Date Ishmael Simon MD [address] [place] [address] PCP - GeneralFamily Medicine10/10/23Team MemberRelationshipSpecialtyStart DateEnd Date Ishmael Simon MD [address] [place] [address] PCP - GeneralFamily Medicine10/10/23Team MemberRelationshipSpecialtyStart DateEnd Date Ishmael Simon MD [address] [place] [address] PCP - GeneralFamily Medicine10/10/23Team MemberRelationshipSpecialtyStart DateEnd Date Ishmael Simon MD [address] [place] [address] PCP - GeneralFamily Medicine10/10/23Team MemberRelationshipSpecialtyStart DateEnd Date Ishmael Simon MD [address] [place] [address] PCP - GeneralFamily Medicine06/29/23 Amador Son MD [address] [facility], [facility] [address] [place] [address] CardiologistElectrophysiology05/17/24Team MemberRelationshipSpecialtyStart DateEnd Date Ishmael Simon MD [address] [place] [address] PCP - Generalmily Medicine06/29/23 Amador Son MD [address] [facility], [facility] [address] [place] [address] CardiologistElectrophysiology05/17/24Team MemberRelationshipSpecialtyStart DateEnd Date Ishmael Simon MD [address] [place] [address] PCP - GeneralFamily Medicine10/10/23Team MemberRelationshipSpecialtyStart DateEnd Date Ishmael Simon MD [address] [place] [address] PCP - GeneralFamily Medicine10/10/23Team MemberRelationshipSpecialtyStart DateEnd Date Ishmael Simon MD [address] [place] [address] PCP - GeneralFamily Medicine10/10/23Team MemberRelationshipSpecialtyStart DateEnd Date Ishmael Simon MD [address] [place] [address] PCP - GeneralFamily Medicine10/10/23Team MemberRelationshipSpecialtyStart DateEnd Date Ishmael Simon MD [address] [place] [address] PCP - GeneralFamily Medicine06/29/23 Amador Son MD [address] [facility] Office Bld[facility], [place] [address] [place] [address] CardiologistElectrophysiology05/17/24Team MemberRelationshipSpecialtyStart DateEnd Date Ishmael Simon MD [address] [place] [address] PCP - GeneralFamily Medicine10/10/23Team MemberRelationshipSpecialtyStart DateEnd Date Ishmael Simon MD [address] [place] [address] PCP - GeneralFamily Medicine08/16/19Team MemberRelationshipSpecialtyStart DateEnd Date Ishmael Simon MD [address] [place] [address] PCP - GeneralFamily Medicine08/16/19Team MemberRelationshipSpecialtyStart DateEnd Date Ishmael Simon MD PCP - GeneralFamily Medicine08/16/19Team MemberRelationshipSpecialtyStart DateEnd Date Ishmael Simon MD [address] [place] [address] PCP - GeneralFamily Medicine10/10/23Team MemberRelationshipSpecialtyStart DateEnd Date Ishmael Simon MD [address] [place] [address] PCP - GeneralFamily Medicine10/10/23Team MemberRelationshipSpecialtyStart DateEnd Date Ishmael Simon MD [address] [place] [address] PCP - GeneralFamily Medicine10/10/23Team MemberRelationshipSpecialtyStart DateEnd Date Ishmael Simon MD [address] [place] [address] PCP - GeneralFamily Medicine10/10/23Team MemberRelationshipSpecialtyStart DateEnd Date Ishmael Simon MD [address] [place] [address] PCP - GeneralFamily Medicine06/29/23 Amador Son MD [address] [facility] [facility] B[facility], [place] [address] [place] [address] CardiologistElectrophysiology05/17/24Team MemberRelationshipSpecialtyStart DateEnd Date Ishmael Simon MD [address] [place] [address] PCP - GeneralFamily Medicine10/10/23Team MemberRelationshipSpecialtyStart DateEnd Date Ishmael Simon MD [address] [place] [address] PCP - GeneralFamily Medicine10/10/23Team MemberRelationshipSpecialtyStart DateEnd Date Ishmael Simon MD [address] [place] [address] PCP - GeneralFamily Medicine10/10/23Team MemberRelationshipSpecialtyStart DateEnd Date Ishmael Simon MD [address] [place] [address] PCP - GeneralFamily Medicine10/10/23Team MemberRelationshipSpecialtyStart DateEnd Date Ishmael Simon MD [address] [place] [address] PCP - GeneralFamily Medicine06/29/23 Amador Son MD [address] [facility]ld[facility], [place] [address] [place] [address] CardiologistElectrophysiology05/17/24Team MemberRelationshipSpecialtyStart DateEnd Date Ishmael Simon MD [address] [place] [address] PCP - GeneralFamily Medicine10/10/23Team MemberRelationshipSpecialtyStart DateEnd Date Ishmael Simon MD [address] [place] [address] PCP - GeneralFamily Medicine10/10/23Team MemberRelationshipSpecialtyStart DateEnd Date Ishmael Simon MD [address] [place] [address] PCP - GeneralFamily Medicine06/29/23 Amador Son MD [address] [facility] Office [address], [address], [place] [address] CardiologistElectrophysiology05/17/24Team MemberRelationshipSpecialtyStart DateEnd Date Ishmael Simon MD PCP - GeneralFamily Medicine10/10/23 Ishmael Simon MD [address] [place] [address] PCP - Human06/09/23Team MemberRelationshipSpecialtyStart DateEnd Date Ishmael Simon MD PCP - GeneralFamily Kemfwste58/5/ Ishmael Simon MD PCP - GeneralFamily Medicine10/10/23 Ishmael Simon MD [address] [place] [address] PCP - [employer]2/06/01 Scheduled Active and Recently [...] Continuous, Starting on Tue08/05/23 at 1230, 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 [facility]. provides no warranty or guarantee of the accuracy or completeness of information in this document.
== END 2025-04-17 09:44 | disposition home or self-care (01) ==
LOC: PST 09:43
PROVIDERS: PCP Family Medicine; Visit Provider Anesthesiology
DX: Z01.818 Encounter for other preprocedural examination (principal); M48.062 Spinal stenosis, lumbar region with neurogenic claudication

== ENCOUNTER 2025-04-22 07:16 | Day surgery (SDC) | payer MEDICARE, SELFPAY ==
--- OUTSIDE RECORDS SUMMARY | 2024-05-28 04:40 | XMS_ITS ---
Author Organization [facility] Address [address] [place] [address] Care Team Providers Care Academic Adviser Name Role Phone Ishmael Watts Primary Care Provider Laurent [facility] [phone] REASON FOR VISIT RIGHT SHOULDER SPRAIN Encounters Encounter Location Date Provider Diagnosis [facility] Office [address] [facility] [address] [place] [address] [place] [address] 05/28/2024 Laurent Curry Plan Of Treatment No Information Progress Notes * LILIANA MICHAELS JRDOB:1964 (60 yo M)Acc No.[id number]:05/28/2024 Patient:?LILIANA MICHAELS JR :?AROLDO RonquilloOB:1965???Age:59 Y ???Sex:MaleDate:05/28/2024Phone:[phone]:[address] [place], [place] [address]Pcp:Ishmael Watts Subjective: * Chief Complaints: * 1 . RIGHT SHOULDER SPRAIN. * Medical History: Objective: * Vitals: Assessment: Plan: * Treatment: Forms: * Images: * Electronic signature of Laurent Curry MD on 04/22/2025 at 07:20 AM ESTSign off status: Pending * Provider: Fransico Curry MD Date: 0 05/28/2024 Generated for Printing/Faxing/eTransmitting on:?04/22/2025 07:20 AM EST
--- OUTSIDE RECORDS SUMMARY | 2025-04-22 07:20 | XMS_ITS | Clinical Summary ---
Author Organization [facility] Address [id number] [place] [address] Care Team Providers Care Boat Hoist Operator Name Role Phone Ishmael Watts MD Primary Care Provider [phone] Allergies No known active allergies Medications MedicationSigDispense [...] Social History Tobacco UseTypesPacks/DayYears UsedDateSmoking Tobacco: Every EbcUkhfuvempv342 Smokeless Tobacco: Never Tobacco Cessation:Ready to Q uit: Not Asked; Counseling Given: Not Answered Alcohol UseStandard Drinks/WeekCommentsNever0 (1 standard drink = 0.6 oz pure alcohol)ChildcareAnswerDate FxefgeopUbiqocyemIfxrglo68/12/2019EmploymentAnswer Date IkbgtzweQpipfnibxsJqfnzfz50/12/2019Hunger ScreeningAnswerDate Recorded Within the past 12 months we worried whether our food would run out before we got money to buy more.Never True12/07/2023Within the past 12 months the food we bought just didn't last and we didn't have money to get more.Never True 4Purpose - LifeAnswerDate RecordedPurpose and direction in lifeUnknown 05/28/2020ex and Gender InformationValueDate RecordedSex Assigned at BirthNot on fileLegal NigIhcg6212/12/2014 12:10 PM EDTGender IdentityNot on fileSexual OrientationNot on file Last Filed Vital Signs Vital SignReadingTime TakenCommentsBlood Lujqeoep804/7807 9:57 AM EDT Nmily761111/11/2021 8:40 AM RXWTnyrdgrzzpa31.6 ??C (97.8 ??F)08/28/2021 8:58 AM EDTRespiratory Huml788506/30/2021 3:30 PM ESTOxygen Jsexsbknfe53%06/30/2021 3:40 PM ESTInhaled Oxygen Concentration--Ruekid63.8 kg (209 lb)12/07/2023 9:57 AM EDT Eojywg725.6 cm (5' 4 )12/07/2023 9:57 AM EDTBody Mass Index35.8712/07/2023 9:57 AM EDT Plan of Treatment Health MaintenanceDue DateLast DoneCommentsDepression Xthmhdzyu13/16/1976 DTaP,Tdap and Td Vaccines (1 - Tdap)02/21/1983Zoster (Shingles) Vaccine (1 of 2) 02/21/2014dult BMI Rkpthymfa77/31/61028312/07/2023Tobacco Bnslrjclp48/31/2025 12/07/2023Influenza Foqmtlz6701/07/20251881Spqckjztqcw72, 08/24/2019 RSV ( or age 60+ yrs) (1 - 1-dose 75+ series)02/21/2039 Medical Devices ImplantedTypeAreaManufacturerDevice IdentifierShelf Expiration DateModel / Serial / LotMesh [id number] Progrip Srg - Sna - [id number] Implanted:Qty: 1 on 06/30/2021 by [facility]: AbdomenMEDTRONIC [facility]10/07/[id number] / NA / [id number] Procedures Procedure NamePriorityDate/TimeAssociated DiagnosisCommentsPROVATION COLONOSCOPY Mzkzqno2408/24/2019 8:42 AM EDT from Last 3 Months [...] DateEnd Date Ishmael Watts MD [facility]16/19
--- OUTSIDE RECORDS SUMMARY | 2025-04-22 07:20 | XMS_ITS | Patient Health Record ---
Author Organization [facility] Address [address] [place] [address] Care Team Providers Care Private Watchman Name Role Phone Ishmael Watts Primary Care Provider Laurent Hatfield [facility] [phone] Reason For Referral No Information Plan Of Treatment No Information Insurance Providers Payer Name Payer Address Payer Phone Subscriber Number Group Number Insured Name Patient Relationship to Insured Coverage Start Date Coverage End Date Medicare [employer] [address] [address] [place] [address] [id number] Emily MICHAELS - patient is the insured
--- OUTSIDE RECORDS SUMMARY | 2025-04-22 07:20 | XMS_ITS | Clinical Summary ---
Author Organization [facility] Address [address] [place] [address] Care Team Providers Care Social Media Manager Name Role Phone Ishmael Watts MD Primary Care Provider [phone] Steve Pyle MD Unavailable [phone] Allergies No known active allergies Medications MedicationSigDispense QuantityRefillsLast FilledStart DateEnd DateStatus montelukast (Singulair) 10 MG tablet Take 1 tablet by mouth at bedtimeActive Mudhgtrixra-Najjrjksu-Pkhgej (Trelegy Ellipta) 100-62.5-25 MCG/ACT aerosol powder Inhale [...] diabetes mellitus with diabetic peripheral angiopathy without mwzhurfy21/17/2025 Overview (10/23/2024): Noted by ALFRED Rae MD last documented on [id number] Mild coronary artery lgynkou7006/13/2024[facility] subsequent 04/24/2024 Assessment & Plan (04/24/2024 11:38 AM EST): Due for labs. Discussed proper diet and regular aerobic exercise. Need aerobic exercise 5-6 days a week for 30 minutes at a time. Smaller portions and limit total calories. Colonoscopy every 10 years. Tetanus every 10 years. Advised not to smoke. Discussed daily Aspirin therapy. Chronic pain of both qrqfokysk98/03/2024 Assessment & Plan (10/10/2023 9:06 AM EDT): Recent pain and likely arthritis. Start PT and check x-ray. Essential hypertension, oqvzss6004/13/2023 Assessment & Plan (12/24/2024 9:24 AM EDT): [...] and monitor PRN. Enlarged prostate with urinary llfhjbwldhi06/06/2023astritis, alcoholic 04/13/2023hronic diastolic heart hwqkelv6704/13/2023 Assessment & Plan (12/24/2024 9:24 AM EDT): [...] PRN. Elevate legs PRN. Chronic obstructive pulmonary diaqxck7804/13/2023 Assessment & Plan (10/23/2024 10:04 AM EDT): [...] up with pulmonology. DDD (degenerative disc disease), ccwnjw0404/13/2023 Assessment & Plan (12/24/2024 9:24 AM EDT): [...] use percocet PRN. Continue home PT exercises. Dqmzfzbxohdl15/06/2023Impotence of organic gqkqul5804/13/2023Nasal polyp04/13/2023 Obstructive sleep apnea (adult) (pediatric)04/13/2023laque eyelanzjo99/06/2023 Peripheral vascular disease, kdtfrnenpcv36/06/2023 Assessment & Plan (07/23/2024 10:53 AM EDT): No symptoms and increase ambulation. Bradycardia, sinus04/13/2023Type 2 diabetes mellitus with hyperglycemia, without long-term current use of abcvndp9404/13/2023 Assessment & Plan (12/24/2024 9:24 AM EDT): [...] limit carbs. Ulnar neuropathy of left upper ccjqhumcv78/06/2023Vitamin D insufficiency 04/13/2023arpal tunnel syndrome of left wrist04/13/2023Encounter for long-term (current) use of iqltqqbygnf77/06/2023Screening PSA (prostate specific antigen) 04/13/2023lass 2 severe [...] PT exercises. Resolved Problems ProblemNoted DateDiagnosed DateResolved CmvzYodcdct60/30/202406/ Assessment & Plan (02/06/2024 1:30 PM EDT): History suggestive UTI and treat. Take cipro for infection. Send urine for culture. Increase water intake and cranberry juice. Use motrin or tylenol for discomfort. Nvchofoeeae17 Assessment & Plan (02/06/2024 1:30 PM EDT): Pain with urination and in testicles. Treat with cipro. Pcciff19hronic hypoxic respiratory hbudcxb3004/13/2023 10/23/2024 Assessment & Plan (06/06/2024 10:11 AM EST): Normal SpO2 on room air and continue nocturnal O2. Family History Medical HistoryRelationNameCommentsLung cancerMotherSchizophreniaMotherRelation NameStatusCommentsFatherDeceasedMotherDeceased Social [...] FamilyNot on file10/09/2023How often do you attend confucianism or congregation services?Patient aphhbjcr71/02/2024o you belong to any clubs or organizations such as confucianism groups, unions, fraternal or athletic groups, or school groups?No10/09/2023How often do you attend meetings of the clubs or organizations you belong to?Patient hmnjupiz93/02/2024re you , , , , never , [...] at all 10/09/2023HQ-2AnswerDate RecordedPatient Health Questionnaire-2 Score0 04/24/2024[facility] [place] [facility] - Occupational Stress QuestionnaireAnswerDate [...] steady place to sleep or slept in ashelter (including now)?No10/09/2023Sex and Gender InformationValueDate RecordedSex Assigned at BirthNot on fileLegal SexMale 07/21/2022 11:01 PM EDTGender IdentityNot on fileSexual OrientationNot on file Last Filed Vital Signs Vital SignReadingTime TakenCommentsBlood Crpezxjf778/7808 8:41 AM EDT Uozqf241912/24/2024 8:41 AM NUNTygstrtknfb84.4 ??C (97.5 ??F)12/24/2024 8:41 AM EDTRespiratory Ygvi046112/24/2024 8:41 AM EDTOxygen Xwagnsdchu51%12/24/2024 8:41 AM EDTInhaled Oxygen Concentration--Vsgnlk551 kg (223 lb)12/24/2024 8:41 AM EDT Azekam981.6 cm (5' 4 )12/24/2024 8:41 AM EDTBody Mass Index38.28012/24/2024 8:41 AM EDT Plan of Treatment Health MaintenanceDue DateLast DoneCommentsCT Qjirsxvypzaq1964FIT-DNA 1965FIT1965FOBT1965 4636Bydjtxznfqaxb1964Pneumococcal Vaccine: Pediatrics (0 to 5 Years) and At-Risk Patients (6 to 64 Years) (1 of 2 - PCV)02/21/1983COVID-19 Vaccine (1 - 2024- season)2025Influenza Vaccine (#1)2025Diabetes: Hemoglobin A1C/, 04/24/2024, 10/10/2023Medicare Annual Wellness (AWV)4Diabetes: Urine Protein Klbsnqmkw51/, 4Diabetes: Retinopathy Screening 612/01/2024, 7557Enjfzeqilgo95, 08/24/2019 Colorectal Cancer Acdhuesng44/17/2030 Insurance Care Teams Team MemberRelationshipSpecialtyStart DateEnd Ishmael Watts MD PCP - GeneralFamily Medicine10/10/23 Steve Pyle MD [address] [address] PCP - [facility]3]06/09/23
--- OUTSIDE RECORDS SUMMARY | 2025-04-22 07:20 | XMS_ITS | Patient Health Record ---
Author Organization [facility] [place] Address [address] [place] [address] Care Team Providers Care Sash Clamp Operator Name Role Phone Ishmael Watts MD Primary Care Provider Unavail Amina Mo Unavailable [phone] Allergies No Known Allergies Results Component Value Reference Range Notes BNP Reviewed date:05/28/2024 01:54:36 PM Interpretation: Performing Lab: Notes/Report: Comment from er labs [facility] , NT Pro B Type Natriuretic Pept 60.0 <=900.0 pg /mL Performing Lab:see noteML - [facility] LBCT Chest Low Dose for Screening* Reviewed date:08/09/2024 02:13:12 PM Interpretation: Performing Lab: Notes/Report: PROF CHEM 8 (BAS METB) Reviewed date:05/28/2024 01:54:35 PM Interpretation: Performing Lab: Notes/Report: [facility] ,Izahsl529632-017 mmol/LPotassium4.13.5-5.1 mmol/KPiaqgriu1450-808 mmol/LCarbon Mlgeaoq84.721.0-32.0 mmol/LAnion Gap16.8Uhvnmpd39409-432 mg/dLBlood Urea Tywfoztl88.07.0-18.0 mg/dLCreatinine1.340.70-1.30 mg/dLEstimated GFR ( Kristine>60>=60 mL/min/1.73m 2Estimated GFR (Non- Ame54>=60 mL/min/1.73m 2 BUN Creatinine Ratio14.0Wditxif6.78.5-10.1 mg/dLPerforming Lab:see noteML - [facility] LBCT lung screening low-dose Reviewed date:08/09/2024 11:05:52 AM Interpretation: Performing Lab: Notes/Report: Source Facility: [facility] [place] [address] [place] [address] [place] Scan Report Signed Patient: LILIANA MICHAELS MR#: [id number] : 1965 Acct:[id number] Age/Sex: 59 / M ADM Date: 08/09/24 Loc: CT Attending Dr: Amina Cassidy D.O. Ordering Physician: Amina Cassidy D.O. Date of Service: 08/09/24 Procedure(s): CT lung screening low-dose Accession Number(s): [id number] cc: Ishmael Watts M.D. The [place] [address] Patient Name: LILIANA MICHAELS MRN: [id number] date: 1965 Sex: M Assigned Patient Location: CT Current Patient Location: CT Accession/Order Number: [id number] Exam Date: 08/09/2024 08:33 Report Date: 08/09/2024 [...] Candida Wright M.D.08/09/2024 8:45 AM Dictation Location: [place] [address] Electronically authenticated by: [id number] Y Date: 08/09/2024 08:45 Dictated By: Candida Wright M.D. Signed By: 08/09/24 0848 DD/ TD/TT: Forensic Technician:Result 2 Reviewed date:05/31/2024 06:25:24 PM Interpretation: Performing Lab: Notes/Report: [facility] ,Result 2See Below For Report Result 2 Few gram negative rods. Performing Lab:see noteLC - [facility] LBResult 1 Reviewed date:05/31/2024 06:25:24 PM Interpretation: Performing Lab: Notes/Report: [facility] ,Result 1See Below For Report Result 1 Moderate number of gram positive cocci. Performing Lab:see noteLC - [facility] LBEpithelial Cells Reviewed date:05/31/2024 06:25:24 PM Interpretation: Performing Lab: Notes/Report: [facility] ,Epithelial CellsSee Below For Report Epithelial Cells Few Performing Lab:see noteLC - [facility] LBCBC AUTO DIFF Reviewed date:05/28/2024 01:54:35 PM Interpretation: Performing Lab: Notes/Report: [facility] ,White Blood Count6.74.0-11.0 10 3/uLRed Blood Count4.884.70-6.10 10 6/uL Plupvbkpoy03.214.0-18.0 g/eYReasrmyeea02.042.0-54.0 %Mean Corpuscular Fmhost11.2 80.0-94.0 fLMean Corpuscular Mzuutgpbol53.125.9-34.0 pgMean Corpuscular HGB Conc 33.829.9-35.2 g/dLRed Cell Distribution Width12.511.0-15.0 %Platelet Yduwa103 150-450 10 3/uLMean Platelet Khwsjd21.19.5-13.5 fLNeutrophils Percent Auto87.2 43.0-75.0 %Lymphocytes Percent Auto10.320.5-60.0 %Monocytes Percent Auto1.51.7- 12.0 %Eosinophils Percent Auto0.00.9-7.0 %Basophils Percent Auto0.10.2-2.0 % Immature Granulocytes Pct Auto0.90.0-0.5 %Neutrophils Absolute Auto5.91.4-6.5 10 3/uLLymphocytes Absolute Auto0.71.2-3.8 10 3/uLMonocytes Absolute Auto0.10.3-0.8 10 3/uLEosinophils Absolute Auto0.00.0-0.7 10 3/uLBasophils Absolute Auto0.00.0- 0.1 10 3/uLImmature Granulocytes Abs Auto0.060.00-0.03 10 3/uLPerforming Lab:see noteML - [facility] LBLower Respiratory Culture Reviewed date:05/31/2024 06:25:24 PM Interpretation: Performing Lab: Notes/Report: [facility] ,Lower Respiratory CultureSee Below For Report Lower Respiratory Culture WILL FOLLOW Lower Respiratory CultureRoutine respiratory samantha Lower Respiratory Culture WILL FOLLOW Lower Respiratory CulturePerformed at: - [facility] [place] Lower Respiratory Culture WILL FOLLOW Lower Respiratory [address] [place], [place] [id number] Lower Respiratory Culture WILL FOLLOW Lower Respiratory CultureLab Director: Vicente Phillips PhD, Phone: [phone] Lower Respiratory Culture WILL FOLLOW Performing Lab:see note LC - [facility] LB SEE REPORT - Nut Cracker Id information not found for OBX-specific morning show producer legend Gram Stain Evaluation Reviewed date:05/31/2024 06:25:24 PM Interpretation: Performing Lab: Notes/Report: [facility] ,Gram Stain EvaluationSee Below For Report Gram Stain Evaluation This specimen is of good quality and is acceptable for routine Gram Stain Evaluationbacterial culture. Gram Stain Evaluation This specimen is of good quality and is acceptable for routine Performing Lab:see noteLC - [facility] LBResult 4 Reviewed date:05/31/2024 06:25:24 PM Interpretation: Performing Lab: Notes/Report: [facility] ,Result 4See Below For Report Result 4 HYDRAULIC OPERATOR Performing Lab:see noteLC - [facility] LBResult 3 Reviewed date:05/31/2024 06:25:24 PM Interpretation: Performing Lab: Notes/Report: [facility] ,Result 3See Below For Report Result 3 HYDRAULIC OPERATOR Performing Lab:see noteLC - [facility] LBWhite Blood Cells Reviewed date:05/31/2024 06:25:24 PM Interpretation: Performing Lab: Notes/Report: [facility] ,White Blood CellsSee Below For Report White Blood Cells White Blood CellsFew White Blood Cells Performing Lab:see noteLC - [facility] LB Reason For Referral No Information Medications Medication SIG (Take, Route, Frequency, Duration) Notes Start Date End Date Status Montelukast Sodium 10 MG 1 tablet Orally QD; Dur ation: 90 days ActiveBaclofen 10 MGOral; Duration: 90 DaysActiveVentolin HFA 108 (90 Base) MCG/ACT2 puffs as needed for SOB Inhalation Q4H; Duration: 90 daysActiveAspirin 81 MG1 tablet Orally Once a dayActiveTrelegy Ellipta 100-62.5-25 MCG/ACT 1 puff Inhalation QD; Duration: 90 days Rinse after use ActiveFurosemide 40 MG1 tablet Orally two times dailyActiveCetirizine HCl 10 MG1 tablet Orally DailyActiveLyrica 100 MG1 capsule Orally Once a dayActive Nabumetone 500 MG1 tablet Orally Twice a dayActiveoxyCODONE-Acetaminophen 7.5- 325 MG1 tablet Orally 4 times dailyActiveOmeprazole 40 MG1 capsule Orally Daily ActiveSpironolactone 100 MG1 tablet Orally DailyActive Social History Tobacco Use: Social History Observation Description Date Details (start date - stop date) Current Smoker NA - NA Tobacco Control (Standard) Question Answer Notes Tobacco use: Current every day smoker Additional Findings: Tobacco userLight cigarette smoker (1-9 cigs/day) Problems Problem Type SNOMED Code ICD Code Onset Dates Problem Status W/U Status Risk Notes Problem Chronic rhinitis (37023653) Chronic rhini tis (J31.0) ActiveconfirmedProblemObstructive sleep apnea syndrome (disorder) (54888763) Obstructive sleep apnea (adult) (pediatric) (G47.33)ActiveconfirmedHighBiPAP Titration 02/05/2019: 25/21; PSG 01/17/2019: AHI 140 - Could not tolerate BiPAP. ProblemObesity (164467749)Obesity, unspecified (E66.9)ActiveconfirmedProblem Chronic diastolic heart failure (886561005)Chronic diastolic (congestive) heart failure (I50.32)ActiveconfirmedProblemChronic respiratory failure (35451613) Chronic respiratory failure with hypoxia (J96.11)ActiveconfirmedProblemLong-term current use of inhaled steroid (672109263)detention (current) use of inhaled steroids (Z79.51)ActiveconfirmedProblemLong-term current use of drug therapy (966038942)Other correction (current) drug therapy (Z79.899)Activeconfirmed Dupilumab (Dupixent)ProblemChronic obstructive pulmonary disease (18896373) Chronic obstructive pulmonary disease (J44.9)ActiveconfirmedProblemHypertension (57058488)HTN (hypertension) (I10)ActiveconfirmedProblemCOPD - Chronic obstructive pulmonary disease (95519250)Chronic obstructive pulmonary disease, unspecified COPD type (J44.9)ActiveconfirmedProblemMultiple polyps of nasal cavity and/or nasal sinus (disorder) (0650246275)Nasal polyps (J33.9)Active confirmed? Dupixent-induced headacheProblemMental disorder caused by drug (214764649)Cigarette nicotine dependence with nicotine-induced disorder (F17.219)Activeconfirmed1-1.5ppd x 40+ years (40-60 pack-year history)Problem Nasal polyposis (7395622029)Nasal polyposis (J33.9)ActiveconfirmedPrior treatments: Dupixent > Singulair, Zyrtec, Flonase (epistaxis)ProblemType II diabetes mellitus well controlled (282226358)Diabetes mellitus type 2, controlled (E11.9)ActiveconfirmedProblemAllergic rhinitis (96356292)Acute allergic rhinitis, unspecified seasonality, unspecified trigger (J30.9)Active confirmedProblemHistory of COVID-19 (560283372524093711)History of COVID-19 (Z86.16)Eagkcxvwamykeey29/2022 Vital Signs Heart Rate 80 /min 08/07/2024 Pscpmtkemnk58.9 degrees Ptbkgnfkfz46/01/2025Respiratory Rate18 /min08/07/2024 Nrlzocyj33 %08/07/2024lood pressure ggsebftxg00 mm Hg08/07/20240382Bpagcu22 in 08/07/2024lood pressure xwwtwign058 mm Hg08/07/20248037Oanyez959.2 lbs08/07/2024MI 37.96 kg/m208/07/2024 Encounters Encounter Location Date Provider Diagnosis Pulmonary Medicine [place] [address] [place] [address] 06/04/2024 [facility] [place] [address] [facility] with nicotine-induced disorder F17.219 and Encounter for screening for malignant neoplasm of respiratory organs Z12.2 Pulmonary [facility] [address] [place] [address]/09/2024 [facility] [place] [address] 08/07/2024[facility] J44.9 ; Chronic respiratory failure with hypoxia J96.11 ; Cigarette nicotine dependence with nicotine-induced disorder F17.219 ; Obstructive sleep apnea (adult) (pediatric) G47.33 ; Nasal polyps J33.9 ; Encounter for screening for malignant neoplasm of respiratory organs Z12.2 ; Diabetes mellitus type 2, controlled E11.9 ; detention (current) use of inhaled steroids Z79.51 and Obesity, unspecified E66.9 Assessments Encounter Date Diagnosis (ICD Code) Assessment Notes Treatment Notes Treatment Clinical Notes Section Notes 08/07/2024 Chronic obstructive pulmonary di sease (ICD-10 - J44.9) With exception of exacerbation [...] treatments. F/U 1 year, or sooner PRN. 08/07/2024hronic respiratory failure with hypoxia (ICD-10 - J96.11) Vydn-dx-nmjc encounter performed with the patient to document [...] rapidly recovered. Continue 2L/min O2 @ HS. 08/09/2024igarette nicotine dependence with nicotine-induced disorder (ICD-10 - F17.219)1-1.5ppd x 40+ years (40-60 pack-year history)08/09/2024Encounter for screening for malignant neoplasm of respiratory organs (ICD-10 - Z12.2) 08/07/2024igarette nicotine dependence with nicotine-induced disorder (ICD-10 - F17.219) 1.5ppd x 40+ years (60+ pack-year history) Discussed smoking cessation again. He continues to smoke ~6 cigarettes a day and states this is better than his 1.5ppd he was at in the past. I acknowledged his improvement, but he was counseled that1 cigarette is 1 too many. He states [...] history of ~7mm nodule in the past. 08/07/2024Obstructive sleep apnea (adult) (pediatric) (ICD-10 - G47.33) PSG 01/17/2019: AHI 104 BiPAP titration 02/05/2019: 25/21 Patient failed BiPAP. 08/07/2024Nasal polyps (ICD-10 - J33.9) Previously on Dupixent, but claimed he had tension-type posterior neck headache that returned on rechallenge. He has not seen ENT - he states no one is going to operate on them - it's too sensitive. If he wants any additional treatment for the polyps, he needs to go to ENT. 08/07/2024Encounter for screening for malignant neoplasm of respiratory [...] was counseled on smoking cessation/continued tobacco abstinence. 08/07/2024Diabetes mellitus type 2, controlled (ICD-10 - E11.9) Steroids prescribed for this patient's underlying pulmonary disease can adversely affect blood glucose levels, inducing hyperglycemia and worsening underlying diabetes. The patient is encouraged to follow up with the primary care provider to create a plan to manage diabetes in this situation. 08/07/2024Long term (current) use of inhaled steroids (ICD-10 - Z79.51) Patient was counseled to rinse & gargle with water after inhaled corticosteroid use. 08/07/2024Obesity, unspecified (ICD-10 - E66.9) Patient's weight is inducing a restrictive pulmonary physiology. Weight loss indicated: Decrease calories, increase activity. 08/07/2024Other Has LUE US today. Plan Of Treatment No Information Insurance Providers Payer Name Payer Address Payer Phone Subscriber Number Group Number Insured Name Patient Relationship to Insured Coverage Start Date Coverage End Date [employer]OS[address] [address] [place] [address] [id number] Olu Michaels - patient is the [id number] 2023 Medications Administered Medication Instructions Date of Administration Dosage Notes Dupixent mL Patient presents for a Dupixent Injection. [...] in that position until the medication was fullyadministered from the auto-injector. Patient was given 300mg/2mL Prefilled Pen of Dupixent SQ in the Right upper Arm. Band-aid was placed on the patient's arm. Patient tolerated the procedure withoutdifficulty. No adverse reactions were noted. Patient was held for the appropriate time. Post Injection vitals obtained. [facility]:[id number] LOT#[id number] EXP: 04/07/2024Radu Russo 07/28/2022 05:35:03 PM > [...] Surgery Date(Month/Year) inguinal hernia repair right hip replacementUlnar Nerve Right Elbowcardiac gwpymzpru79/29/2024
--- OUTSIDE RECORDS SUMMARY | 2025-04-22 07:20 | XMS_ITS | Clinical Summary ---
Author Organization [facility] Address [address] [place] [address] Phone Care Team Providers Care Front Tender Name Role Phone Ishmael Watts MD Primary Care Provider + Amador Dickens MD Unavailable [phone] Allergies No known active allergies Medications MedicationSigDispense QuantityRefillsLast FilledStart DateEnd DateStatus oxygen (O2) gas therapy 2l at bedtimeActive albuterol (Ventolin HFA) 90 mcg/actuation inhaler Inhale 2 puffs every 4 hours if needed.Active cetirizine (ZyrTEC) 10 mg tablet Take 1 tablet (10 mg) by mouth once daily at bedtime.Active fodafsrhulp-dcznljgue-uxioeglv (TRELEGY-ELLIPTA) 100-62.5-25 mcg blister with device Inhale [...] a day.Active Active Problems ProblemNoted DateDiagnosed DateFormer lwodyj2506/13/20249712Xvxnqtmtfaavtk94/05/2025 Mild coronary artery pizyxlm4906/13/20247187Ulgixbnoh09/25/2024Other biyutai4807/22/2023 BMI 37.0-37.9, adult07/13/2023Sick sinus afsofwze42/06/2024hronotropic soiiwqcllrmm26/06/2024OPD (chronic obstructive pulmonary disease)05/23/2023 Current omztpa6305/23/20232611Infiswu67/15/2024Sinus pfvildglieu78/15/2024Obstructive sleep apnea (adult) (pediatric)04/13/2023eripheral vascular disease, /06/2023Type 2 diabetes mellitus with hyperglycemia, without long- term current use of smpiepj4104/13/2023 Overview (07/22/2023): Last Assessment & Plan: Not checking BS and due for A1C. Stick to ADA diet and limit carbs. Essential hypertension, prolcy4205/13/2022 Overview (07/22/2023): Last Assessment & Plan: BP controlled and monitor PRN. Resolved Problems ProblemNoted DateDiagnosed DateResolved DateAbnormal stress test05/23/2023 12/01/2023hronic diastolic heart Overview (07/22/2023): Last Assessment & Plan: Occasional edema and use lasix PRN. Elevate legs PRN. Encounters DateTypeDepartmentCare DustCcwaokfsjza99/30/2025 1:27 PM EDT - 03/07/2025 11:59 PM EDTHospital Encounter [facility] [address] [place] [address] Cardiac pacemaker in situ Discharge Disposition: Home03/01/2025Telephone [facility] [address] [facility] [address] [place] [address] Myah Carias LPN from Last 3 Months Family History Medical HistoryRelationNameCommentsNo Known ProblemsFatherMental illnessMother RelationNameStatusCommentsFatherDeceasedMotherDeceased Social History Tobacco UseTypesPacks/DayYears UsedDateSmoking Tobacco: KzjobyLlqritnmzk061 Started: 2024Smokeless Tobacco: Never Tobacco Cessation:Counseling Given: Not Answered Alcohol UseStandard Drinks/WeekCommentsNever0 (1 standard drink = 0.6 oz pure alcohol)Sex and Gender InformationValueDate RecordedSex Assigned at BirthNot on fileLegal PskVuip31/26/2022 1:30 AM ESTGender IdentityNot on fileSexual OrientationNot on file Last Filed Vital Signs Vital SignReadingTime TakenCommentsBlood Dtctiskx116/7007 9:04 AM EDT Hspgq169511/28/2024 9:04 AM AETGllggywszgo85.4 ??C (97.5 ??F)08/05/2023 12:13 PM EDTRespiratory Uxuo738708/05/2023 5:30 PM EDTOxygen Fxfiawhjrc98%08/05/2023 5:30 PM EDTInhaled Oxygen Concentration--Kvbzei850 kg (225 lb)11/28/2024 9:04 AM EDT Bkeqyr702.6 cm (5' 4 )11/28/2024 9:04 AM EDTBody Mass Index38.62011/28/2024 9:04 AM EDT Plan of Treatment DateTypeDepartmentCare Team (Latest Contact Info)Rnxjtsjebte00/07/2026 8:40 AM ESTOffice Visit [address] [place] [address] Patti Ferrer MD [address] [facility], [address] [place] [address] 06/04/2025 8:00 AM ESTAppointment [facility] [address] [place] [address] 06/04/2025 8:30 AM ESTOffice Visit [facility] [address] [facility] [address] [place] [address] Vaishnavi Lam PA-C [address] [facility] [address], [address] [place], [place] [id number] Health MaintenanceDue DateLast DoneCommentsCT Sdjbogdjozio1964Diabetes: Hemoglobin A1C1964Diabetes: Urine Protein Wxxbjfuot1964FIT-DNA (Cologuard)1964FIT1964HIV Alelxmukx1964Lipid Panel1965 Medicare Annual Wellness Visit (AWV)1965 5928Glraqcejqqcow1964MMR Vaccines (1 of 1 - Standard series)02/21/1965Diabetes: Retinopathy Screening 02/21/1974Hepatitis C Ccfeiaonm83/16/1982Pneumococcal Vaccine (1 of 2 - PCV) 02/21/1983DTaP/Tdap/Td Vaccines (1 - Tdap)02/21/1986PSA Prostate Cancer Xkoqthfgq23/16/2014RSV High Risk: (Elderly (60+) or Population) (1 - Risk 50-74 years 1-dose series)02/21/2014Zoster Vaccines (1 of 2)02/21/2014 Creatinine Level503/, 07/29/20233368Xlfpndcjabbcbn04/29/2025 08/05/2023otassium Level5008/05/2023, 07/29/2023Influenza Vaccine (#1) 2024OVID-19 Vaccine (1 - season)3524Nqlkjarzvhc52/17/2030 08/24/2019Colorectal Cancer Viwusztti85/17/2030HIB VaccinesAged OutNo longer eligible based on patient's [...] / LotLead, Capsurefix Novus, 52 Cm - [id number] Implanted:Qty: 1 on 08/05/2023 by [facility] PacemakerLeft: ChestMEDTRONIC [id number] / [id number] / [id number], Capsurefix Novus, 45 Cm - [id number] Implanted:Qty: 1 on 08/05/2023 by [facility] CenterCardiac PacemakerLeft: ChestMEDTRONIC [id number] / [id number] / [id number], Dual Chamber, Kae Mri Xt Dr - [id number] Implanted:Qty: 1 on 08/05/2023 by [facility] PacemakerLeft: ChestMEDTRONIC [id number] / [id number] / [id number] Procedures Procedure NamePriorityDate/TimeAssociated DiagnosisCommentsCARDIAC DEVICE CHECK - REMOTE - CCZOKMOEZVxislwz99/30/2025 1:36 PM EDT Cardiac pacemaker in situ TRANSTHORACIC ECHO (TTE) LAQATNNEFLJO60/29/2024 1:26 PM EDT Chronotropic incompetence Abnormal stress test Dyspnea Bradycardia, unspecified BASIC METABOLIC ESIPUWEFF78/29/2024 12:18 PM EDT from Last 3 Months [...] excursion3.6cmSYNGOMV avg E/e' ratio 7.78SYNGOLA vol index A/L29.3ml/m5NCKKWSJ free wall pk S'15.40cm/sSYNGORVSP 23.1nbUxGAOBUVFBJk6.28cmSYNGOAortic Valve Area by Continuity of Peak Velocity 2.54rh2NYRQMUU pk grad8.2mmHgSYNGOAortic Valve Area by Continuity of VTI2.62 fi2CJJYBDW A4C EF62.4SYNGOSpecimen (Source)Anatomical Location / Laterality Collection Method / VolumeCollection TimeReceived Time08/05/2023 11:46 AM EDT Narrative SYNGO - 08/05/2023 2:30 PM EDT ? [place] [address] TRANSTHORACIC ECHOCARDIOGRAM REPORT Patient Name: ?LILIANA MICHAELS ? Reading Physician: ?[id number] Jai Morris ?MD, FACC Study Date: ?08/05/2023 ?Ordering Provider: ?[id number] ANA M M ?STANLEY MRN/PID: ? [id number] ? Fellow: Accession#: ?[id number] ? Nurse: Date of /Age: 10 1965 / 58 ?Analysis Intern: ?Eli ? years ?Mccarthy-Brown RDCS Gender: ?M ?Additional Staff: Height: ?162.56 cm ?Admit Date: Weight: ?90.72 kg ? Admission Status: ? Outpatient BSA / BMI: ? 1.96 m2 / 34.33 ?Department Location: ??Eddie [facility] ? kg/m2 ?Echo Lab Blood Pressure: 128 /73 mmHg Study Type: ?TRANSTHORACIC ECHO (TTE) COMPLETE Diagnosis/ICD: Bradycardia, unspecified-R00.1 Indication: ?Abnormal EKG, Pre-EP CPT Codes: ? Echo Complete w Full Doppler-23157 Study Detail: The following Echo studies were [...] Area A2C: ? 18.9 cm2 LA Major Flippin A4C: 5.8 cm LA Major Flippin A2C: 5.5 cm LA Volume Index: ?? [...] ??(0.6-0.9m/s) PV Max PG: ? 6.6 mmHg [id number] Jai Morris MD, [facility] Electronically signed on 08/05/2023 at 2:30:14 PM Final Procedure Note Jai Morris MD - 08/05/2023 [place] [address] TRANSTHORACIC ECHOCARDIOGRAM REPORT Patient Name: LILIANA MICHAELS Reading Physician: [id number] Long MD, [facility] Study Date: 08/05/2023 Ordering Provider: [id number] SALINAS MRN/PID: [id number] Fellow: Nurse: Date of /Age: 10 1965 Analysis Intern: Eli Gibbons [facility] Gender: M Additional Staff: Height: 162.56 cm Admit Date: Weight: 90.72 kg Admission Status: Outpatient BSA / BMI: 1.96 m2 / 34.33 Department Location: [facility]/ Echo Lab Blood Pressure: 128 /73 mmHg Study Type: TRANSTHORACIC ECHO (TTE) COMPLETE Diagnosis/ICD: Bradycardia, unspecified-R00.1 Indication: Abnormal EKG, Pre-EP CPT Codes: Echo Complete w Full Doppler-24623 Study Detail: The following Echo studies were [...] LA Area A2C: 18.9 cm2 LA Major Flippin A4C: 5.8 cm LA Major Flippin A2C: 5.5 cm LA Volume Index: 27.0 [...] 1.3 m/s (0.6-0.9m/s) PV Max P.6 mmHg [id number] Jai Morris MD, [facility] Electronically signed on 08/05/2023 at 2:30:14 PM Final Authorizing ProviderResult TypeResult StatusAna M Dodge Stanley SCIENCE EDUCATION PROFESSOR-CNPCV ECHO PROCEDURESFinal ResultPerforming OrganizationAddressCity/State/ZIP CodePhone Number SYNGO * Basic Metabolic Panel (08/05/2023 12:18 PM EDT)ComponentValueRef RangeTest MethodAnalysis TimePerformed AtPathologist BpmxzanagOnywnmg5718 - 99 mg/dL LAB CHEMISTRY METHOD 08/05/2023 1:29 PM [facility] OQKUfjfhm301603 - 145 mmol/L LAB CHEMISTRY METHOD 08/05/2023 1:29 PM [facility] LABPotassium4.03.5 - 5.3 mmol/L LAB CHEMISTRY METHOD 08/05/2023 1:29 PM [facility] PFVCiflhbip96172 - 107 mmol/L LAB CHEMISTRY METHOD 08/05/2023 1:29 PM [facility] WIWXhivlllaxoa4811 - 32 mmol/L LAB CHEMISTRY METHOD 08/05/2023 1:29 PM [facility] LABAnion Vyx1253 - 20 mmol/L LAB CHEMISTRY METHOD 08/05/2023 1:29 PM [facility] LABUrea Ltnhehjb214 - 23 mg/dL LAB CHEMISTRY METHOD 08/05/2023 1:29 PM [facility] LABCreatinine1.120.50 - 1.30 mg/dL LAB CHEMISTRY METHOD 08/05/2023 1:29 PM [facility] PJZwCBN78>60 mL/min/1.73m*2 LAB CHEMISTRY METHOD 08/05/2023 1:29 PM [facility] LABComment: Calculations of estimated GFR are performed using the 2020 CKD-EPI Study Refit equation without therace variable for the IDMS-Traceable creatinine methods. https://jasn.asnjournals.org/content//ASN.1047408145 Calcium9.68.6 - 10.3 mg/dL LAB CHEMISTRY METHOD 08/05/2023 1:29 PM [facility] LABSpecimen (Source)Anatomical Location / LateralityCollection Method / VolumeCollection TimeReceived TimeBlood Venous blood specimen / UnknownVenipuncture / Cvmplsv1308/05/2023 12:18 PM EDT 08/05/2023 12:52 PM EDT Narrative Authorizing ProviderResult TypeResult StatusAna M Dodge Stanley SCIENCE EDUCATION PROFESSOR-CNPLAB BLOOD ORDERABLESFinal ResultPerforming OrganizationAddressCity/State/ZIP CodePhone Number [facility] [address] [place] [address] from Last 3 Months or Most Recently Relevant to Health Maintenance Insurance Advance Directives For more information, please contact: [phone] (Available ) * Full Code (Latest Code Status on File) Date ActivatedDate InactivatedComments08/05/2023 12:02 PMQuestionAnswerComments Plan of Care:* Code Status Discussion Not Completed Decision Maker:* Provider Rationale:* Patient condition does not warrant discussion Care Teams Team MemberRelationshipSpecialtyStart DateEnd Date Ishmael Watts MD [address] [place] [address] PCP - GeneralFamily Medicine06/29/23 Amador Dickens MD [address] [facility] [address] [place] [address] CardiologistElectrophysiology05/17/24
[2025-04-22 07:22] VITALS: BP 138/83; PULSE 84; TEMP 36.8; O2SAT 95
[2025-04-22] MEDS: CEFAZOLIN SODIUM/DEXTROSE,ISO 1 GM/50 ML PREMIX IV (09:14)
--- NOTE | 2025-04-22 10:03 | P.ON_ITS ---
Date of procedure: 04/22/25 Pre-op diagnosis: Pain due to lumbar stenosis with neurogenic claudication Post-op diagnosis: same as pre-op Procedure: Procedure Performed by: Jong Reyes M.D. Procedure: Placement of [employer] 16 contact neuroelectrode leads (x two) and Impulse Generator Battery under fluoroscopic guidance *Needle Rechecker at the interspace below T12/L1 *Final Lead Placement Level at the middle of the vertebral body T8 *Battery Placement on the Left Side Indication: Pain due to lumbar post laminectomy syndrome following a successful Stimulator Trial Anesthesia: Monitored Anesthesia Care is medically necessary for the procedure due to the procedure requiring the patient to remain motionless for a prolonged period of time. Procedure: Risks, Benefits, Alternatives were reviewed and informed consent was obtained in the preop holding area. All questions were answered appropriately. The patient was brought to the operating room and placed in the prone position with padding under all bony prominences. A pre-procedure time out was performed specifying pt . name, nature site and side of surgery, and allergies. Anesthesia provided appropriate sedation as the skin over the thoracic and lumbar spine were prepped and draped in the usual sterile fashion. Under fluoroscopic guidance, the needle entry level account manager interspace noted above was identified as the site for epidural needle entry. The skin and subcutaneous tissues were anesthetized approximately 1 level inferior to this point with a mixture of 1% lidocaine and 0.25% bupivacaine. A 14 gauge tuohy needle was inserted to the superior aspect of the lamina just inferior to the target interspace. Then, using loss of resistance technique as well as fluoroscopic guidance, the epidural space was entered. Two [employer] Leads were then advanced under intermittent fluoroscopic guidance until the distal tip of the electrode was observed to be in position at the location noted above. After appropriate electrode placement was achieved, stimulation was tested intraoperatively with multiple lead configurations until concordant paresthesias were obtained covering the areas of the patient's pain. Intraoperative analysis and programming of the neurostimulator pulse generator was completed by the physician and the counter sales representative from [employer]. Next, the skin approximately 1cm superior to the needle entry point and 3cm distal to the needle entry point were anesthetized with 1% lidocaine and 0.25% bupivacaine. An incision was made along this area exposing the underlying fascia. Hemostasis was achieved. A small horizontal incision was made in the subcutaneous tissue overlying the posterior ilium after local anesthetic was infiltrated with 1% lidocaine and 0.25% bupivacaine mixture. A small pocket was made in the subcutaneous fat using blunt dissection. Hemostasis was obtained. A stimulator battery/implantable generator was then placed into the small pocket and attached to the electrodes. Testing was performed to ensure adequate connection between the electrodes and battery. After testing was completed, the two incisions were sutured with Vicryl 3-0 for deep tissue and Vicryl 4-0 for epidermis. The incisions were covered with sterile bandages. The patient was then taken to the recovery area in good condition. Anesthesia: MAC Surgeon: Jong Reyes Pathology: none sent Condition: stable Disposition: no change
[2025-04-22 10:15] VITALS: BP 153/76; PULSE 61; TEMP 36.4; O2SAT 96
[2025-04-22 10:23] VITALS: BP 141/80; PULSE 62; O2SAT 95
--- NOTE | 2025-04-22 10:35 | PC.NURSE ---
[place] scientific reps at bedside programming device. Pt A+Ox3, stable recovery.
== END 2025-04-22 10:47 | disposition home or self-care (01) ==
PROVIDERS: PCP Family Medicine; Visit Provider Anesthesiology
DX: Z01.818 Encounter for other preprocedural examination (principal); M48.062 Spinal stenosis, lumbar region with neurogenic claudication; G89.29 Other chronic pain
CPT/HCPCS: 63650; 63685; C1820; J0690

== ENCOUNTER 2025-05-06 10:25 | Outpatient (OUT) | payer MEDICARE, SELFPAY ==
--- OUTSIDE RECORDS SUMMARY | 2024-05-28 04:40 | XMS_ITS ---
Author Organization [facility] Address [address] [place] [address] Care Team Providers Care Advertising Operations Manager Name Role Phone Ishmael Watts Primary Care Provider Laurent [facility] [phone] REASON FOR VISIT RIGHT SHOULDER SPRAIN Encounters Encounter Location Date Provider Diagnosis [facility] Office [address] [place] [address] [place] [address] 05/28/2024 Laurent Curry Plan Of Treatment No Information Progress Notes * LILAINA MICHAELS JRDOB:1964 (60 yo M)Acc No.[id number]:05/28/2024 Patient:?LILIANA MICHAELS JR :?AROLDO RonquilloOB:1965???Age:59 Y ???Sex:MaleDate:05/28/2024Phone:[phone]:[address] [place], [place] [address]Pcp:Ishmael Watts Subjective: * Chief Complaints: * 1 . RIGHT SHOULDER SPRAIN. * Medical History: Objective: * Vitals: Assessment: Plan: * Treatment: Forms: * Images: * Electronic signature of Laurent Curry MD on 05/06/2025 at 10:28 AM ESTSign off status: Pending * Provider: Fransico Curry MD Date: 0 05/28/2024 Generated for Printing/Faxing/eTransmitting on:?05/06/2025 10:28 AM EST
--- OUTSIDE RECORDS SUMMARY | 2025-05-06 10:28 | XMS_ITS | Clinical Summary ---
Author Organization [facility] Address [address] [place] [address] Care Team Providers Care Brim Blocker Name Role Phone Ishmael Watts MD Primary Care Provider [phone] Amador Dickens MD Unavailable [phone] Patti Ferrer MD Unavailable [phone] Gilbert Li MD Unavailable Allergies No known [...] BY MOUTH IN THE MORNING AND AT GVDWQGA58/10/2025Active spironolactone (Aldactone) 100 mg tablet Take 100 [...] if needed.5Active Active Problems ProblemNoted DateDiagnosed DateMorbid qfdyupx8202/05/2025Hypogonadism in male 02/05/2025Increased frequency of vrnoredye70/30/2025Type 2 diabetes mellitus with diabetic peripheral angiopathy without tbqviywa78/17/2025 Overview (02/05/2025): Noted by ALFRED Rae MD last documented on 20240723 Former olmycc7706/13/20245358Ozbgphrzvgcvnu79/05/2025Mild coronary artery disease 06/13/2024Medicare annual wellness visit, jlkaxwgqcj81/17/2024acemaker 12/01/2023hronic pain of both etsucqxds77/03/2024Other kllksdd4607/22/2023MI 37.0-37.9, adult07/13/2023hronotropic xfgkuzkkpmom90/06/2024Sick sinus syndrome 07/13/2023urrent fzjnus7205/23/2023 Overview (02/05/2025): Added secondary to documentation in Social History. Ntkwpwn3505/23/2023arpal tunnel syndrome of left wrist04/13/2023OPD (chronic obstructive pulmonary disease)3Class 2 severe obesity due to excess calories with serious comorbidity and body mass index (BMI) of39.0 to 39.9 in adult04/13/2023DD (degenerative disc disease), khcyhu9504/13/2023yslipidemia 04/13/2023Encounter for long-term (current) use of kgecamkxcol57/06/2023Enlarged prostate with urinary exkgoyazumg70/06/2023astritis, /06/2023 Impotence of organic euipeo8104/13/2023Nasal polyp04/13/2023Obstructive sleep apnea (adult) (pediatric)04/13/2023eripheral vascular disease, unspecified 04/13/2023laque sowrgljwt15/06/2023rimary osteoarthritis of right hip 04/13/2023Screening PSA (prostate specific antigen)04/13/2023Sinus bradycardia 04/13/2023Type 2 diabetes mellitus with hyperglycemia, without long-term current use of spnaanr6704/13/2023 Overview (02/05/2025): Last Assessment & Plan: Not checking BS and due for A1C. Stick to ADA diet and limit carbs. Ulnar neuropathy of left upper hdqxnmutw18/06/2023Vitamin D insufficiency 04/13/2023Essential hypertension, zfrany2305/13/2022 Overview (02/05/2025): Last Assessment & Plan: BP controlled and monitor PRN. Pain of right hip joint01/21/2020 Resolved Problems ProblemNoted DateDiagnosed DateResolved DateChronic diastolic heart failure Encounters DateTypeDepartmentCare LlpxJdsxrkoqnxh62/06/2025 12:05 AM EDT - 02/11/2025 11:59 PM EDTHospital Encounter [facility] Radiology External Films [address] [place] [address] Discharge Disposition: Home or Self Care ()02/11/2025 - 02/11/2025 12:04 AM EDTHospital Encounter [facility] Radiology External Films [address] [place] [address] Discharge Disposition: Home or Self Care ()02/05/2025 9:00 AM EDTConsult [facility] Surgery Clinic [address] [place] [address] Jad Vega MD Spinal stenosis of lumbar [...] 02/05/2025Sexually AbusedNot on file02/05/2025PHQ-2AnswerDate RecordedPatient Health Questionnaire-2 Cwjkd376Sex and Gender InformationValueDate RecordedSex Assigned at KjpboMjxk11/26/2025 2:40 PM EDTLegal XwfJpkg8611/05/2021 12:11 AM EDTGender IdentityChoose not to somtqpgk44/26/2025 2:40 PM EDTSexual OrientationChoose not to aazaewvc12/26/2025 2:40 PM EDT Last Filed Vital Signs Vital SignReadingTime TakenCommentsBlood Wctcatgq173/78002/05/2025 9:27 AM EDT Pcecg649902/05/2025 9:27 AM NUOOfvcsvaogxr90.9 ??C (98.4 ??F)02/05/2025 9:27 AM EDTRespiratory Ruhy659408/22/2020 8:20 AM EDTOxygen Iodondokiu23%10/16/2020 2:37 PM EDTInhaled Oxygen Concentration--Jdmiut79.8 kg (220 lb)02/05/2025 9:27 AM EDT Nzmnox877.6 cm (5' 4 )02/05/2025 9:27 AM EDTBody Mass Index37.76002/05/2025 9:27 AM EDT Plan of Treatment Health MaintenanceDue DateLast DoneCommentsCT Nfdyzmcbtkvw1964Colonoscopy 1964Colorectal Cancer Qpvagkqmc1964FIT-DNA1964FIT1964 FOBT1964Medicare Annual Wellness (AWV)1965 3236Moyswooogrgrw1964 Diabetes: Retinopathy Dnncscrlt08/16/1974Diabetes: Urine Protein Screening 02/21/1983Pneumococcal Vaccine: Pediatrics (0 to 5 Years) and At-Risk Patients (6 to 64 Years) (1 of 2 - PCV)02/21/1983Adult Pmzekjt8802/21/1986Zoster Vaccines (1 of 2)02/21/2014Diabetes: Hemoglobin A1C06/06/COVID-19 Vaccine (1 - season)2025Influenza Vaccine (#1)2025Depression Xxzuyiopj14HIB VaccinesAged OutNo longer eligible based on patient's [...] Procedures Procedure NamePriorityDate/TimeAssociated DiagnosisCommentsXR TRANSFER OF OUTSIDE MISDFLzicxuy13/06/2025 12:05 AM EDT MR TRANSFER OF OUTSIDE XVPQFMjjwtgl49/06/2025 12:00 AM EDT HEMOGLOBIN M8QFqcfckh10/29/2020 12:21 PM EDT from Last 3 Months [...] SignatureHemoglobin A1C6.8(H)4.0 - 6.0 %LAB CONVERSIONSEstimated Average Cvkwvij991obat/LLAB CONVERSIONSSpecimen (Source)Anatomical Location / LateralityCollection Method / VolumeCollection TimeReceived Time03/06/2020 12:21 PM EDT1 12:21 PM EDT Narrative Authorizing ProviderResult TypeResult StatusMaged Gosia [facility] BLOOD ORDERABLES Final ResultPerforming OrganizationAddressCity/State/ZIP CodePhone Number LAB CONVERSIONS from Last 3 Months or Most Recently Relevant to Health Maintenance Insurance Care Teams Team MemberRelationshipSpecialtyStart DateEnd Date Ishmael Watts MD [facility] [facility] [place] [address] PCP - GeneralFamily Medicine02/05/25 Amador Dickens MD [address] [place] [id number] Referring PhysicianCardiology02/05/25 Patti Ferrer MD [address] [place] [address] [address], [facility] [address] [place] [address] Referring PhysicianCardiology02/05/25 Gilbert Li MD [address] [place] [address] [place] [address] Referring PhysicianPulmonary Disease02/05/25
--- OUTSIDE RECORDS SUMMARY | 2025-05-06 10:28 | XMS_ITS | Patient Health Record ---
Author Organization [facility] Address [address] [place] [address] Care Team Providers Care Greige Goods Examiner Name Role Phone Ishmael Watts Primary Care Provider [facility] [phone] Reason For Referral No Information Plan Of Treatment No Information Insurance Providers Payer Name Payer Address Payer Phone Subscriber Number Group Number Insured Name Patient Relationship to Insured Coverage Start Date Coverage End Date Medicare [employer] [address] [address] [place] [address] [phone] [id number] Emily MICHAELS - patient is the insured
--- OUTSIDE RECORDS SUMMARY | 2025-05-06 10:28 | XMS_ITS | Patient Health Record ---
Author Organization [facility] in [place] Address [address] [place] [address] Care Team Providers Care Free Lance Artist Name Role Phone Ishmael Watts MD Primary Care Provider Unavail Amina Mo Unavailable [phone] Allergies No Known Allergies Results Component Value Reference Range Notes CT Chest Low Dose for Screen ing* Reviewed date:08/09/2024 02:13:12 PM Interpretation: Performing Lab: Notes/Report: CBC AUTO DIFF Reviewed date:05/28/2024 01:54:35 PM Interpretation: Performing Lab: Notes/Report: [facility] , White Blood Count 6.7 4.0-11.0 10 3/uL Red Blood Count4.884.70-6.10 10 6/tWVpjnhzxkmv26.214.0-18.0 g/uMYtfwirefba42.0 42.0-54.0 %Mean Corpuscular Wwdrwi80.280.0-94.0 fLMean Corpuscular Hemoglobin 31.125.9-34.0 pgMean Corpuscular HGB Conc33.829.9-35.2 g/dLRed Cell Distribution Width12.511.0-15.0 %Platelet Xkptx138288-192 10 3/uLMean Platelet Npcjcd04.19.5- 13.5 fLNeutrophils Percent Auto87.243.0-75.0 %Lymphocytes Percent Auto10.320.5- 60.0 %Monocytes Percent Auto1.51.7-12.0 %Eosinophils Percent Auto0.00.9-7.0 % Basophils Percent Auto0.10.2-2.0 %Immature Granulocytes Pct Auto0.90.0-0.5 % Neutrophils Absolute Auto5.91.4-6.5 10 3/uLLymphocytes Absolute Auto0.71.2-3.8 10 3/uLMonocytes Absolute Auto0.10.3-0.8 10 3/uLEosinophils Absolute Auto0.00.0- 0.7 10 3/uLBasophils Absolute Auto0.00.0-0.1 10 3/uLImmature Granulocytes Abs Auto0.060.00-0.03 10 3/uLPerforming Lab:see noteML - [facility] LB PROF CHEM 8 (BAS METB) Reviewed date:05/28/2024 01:54:35 PM Interpretation: Performing Lab: Notes/Report: [facility] ,Kjevoe120308-500 mmol/LPotassium4.13.5-5.1 mmol/GTkqjrqhh8494-899 mmol/LCarbon Gsrmslw36.721.0-32.0 mmol/LAnion Gap16.0Hgcxdym99714-777 mg/dLBlood Urea Xseidche65.07.0-18.0 mg/dLCreatinine1.340.70-1.30 mg/dLEstimated GFR ( Kristine>60>=60 mL/min/1.73m 2Estimated GFR (Non- Ame54>=60 mL/min/1.73m 2 BUN Creatinine Ratio14.9Pqnoewj1.78.5-10.1 mg/dLPerforming Lab:see noteML - [facility] LBLower Respiratory Culture Reviewed date:05/31/2024 06:25:24 PM Interpretation: Performing Lab: Notes/Report: [facility] ,Lower Respiratory CultureSee Below For Report Lower Respiratory Culture WILL FOLLOW Lower Respiratory CultureRoutine respiratory samantha Lower Respiratory Culture WILL FOLLOW Lower Respiratory CulturePerformed at: CB - [facility] [place] Lower Respiratory Culture WILL FOLLOW Lower Respiratory [address] [place], [place] [id number] Lower Respiratory Culture WILL FOLLOW Lower Respiratory CultureLab Director: Vicente Phillips PhD, Phone: [phone] Lower Respiratory Culture WILL FOLLOW Performing Lab:see note LC - [facility] LB SEE REPORT - Central Services Tech Id information not found for OBX-specific reproducer legend Gram Stain Evaluation Reviewed date:05/31/2024 06:25:24 PM Interpretation: Performing Lab: Notes/Report: [facility] ,Gram Stain EvaluationSee Below For Report This specimen is of good quality and is acceptable for routine Gram Stain Evaluation Gram Stain Evaluationbacterial culture. This specimen is of good quality and is acceptable for routine Gram Stain Evaluation Performing Lab:see note - [facility] LBResult 4 Reviewed date:05/31/2024 06:25:24 PM Interpretation: Performing Lab: Notes/Report: [facility] ,Result 4See Below For Report HEALTH UNDERWRITER Result 4 Performing Lab:see note - [facility] LBResult 3 Reviewed date:05/31/2024 06:25:24 PM Interpretation: Performing Lab: Notes/Report: [facility] ,Result 3See Below For Report Result 3 HEALTH UNDERWRITER Performing Lab:see note - [facility] LBResult 2 Reviewed date:05/31/2024 06:25:24 PM Interpretation: Performing Lab: Notes/Report: [facility] ,Result 2See Below For Report Few gram negative rods. Result 2 Performing Lab:see note - [facility] LBResult 1 Reviewed date:05/31/2024 06:25:24 PM Interpretation: Performing Lab: Notes/Report: [facility] ,Result 1See Below For Report Moderate number of gram positive cocci. Result 1 Performing Lab[facility] LBEpithelial Cells Reviewed date:05/31/2024 06:25:24 PM Interpretation: Performing Lab: Notes/Report: [facility] ,Epithelial CellsSee Below For Report Epithelial Cells Few Performing Lab:see note - [facility] LBWhite Blood Cells Reviewed date:05/31/2024 06:25:24 PM Interpretation: Performing Lab: Notes/Report: [facility] ,White Blood CellsSee Below For Report White Blood Cells White Blood CellsFew White Blood Cells Performing Lab:see note - [facility] LBBNP Reviewed date:05/28/2024 01:54:36 PM Interpretation: Performing Lab: Notes/Report: Comment from er labs [facility] ,NT Pro B Type Natriuretic Pept60.0<=900.0 pg/mLPerforming Lab:see noteML - [facility] LBCT lung screening low-dose Reviewed date:08/09/2024 11:05:52 AM Interpretation: Performing Lab: Notes/Report: Source Facility: [place] [address] [place] [address] CT Scan Report Signed Patient: LILIANA MICHAELS MR#: [id number] : 1965 Acct:[id number] Age/Sex: 59 / M ADM Date: 08/09/24 Loc: CT Attending Dr: Amina Cassidy D.O. Ordering Physician: Amina Cassidy D.O. Date of Service: 08/09/24 Procedure(s): CT lung screening low-dose Accession Number(s): [id number] cc: Ishmael Watts M.D. [facility] [place] [address] Patient Name: LILIANA MICHAELS MRN: [id number] date: 1965 Sex: M Assigned Patient Location: CT Current Patient Location: CT Accession/Order Number: [id number] Exam Date: 08/09/2024 08:33 Report Date: 08/09/2024 [...] Candida Wright M.D.08/09/2024 8:45 AM Dictation Location: [place] [address] Electronically authenticated by: [id number] Y Date: 08/09/2024 08:45 Dictated By: Candida Wright M.D. Signed By: 08/09/24 0848 DD/ TD/TT: Undercutter Operator: Reason For Referral No Information Medications Medication [...] W/U Status Risk Notes Problem Chronic rhinitis (79139483) Chronic rhini tis (J31.0) ActiveconfirmedProblemObstructive sleep apnea syndrome (disorder) (59598452) Obstructive sleep apnea (adult) (pediatric) (G47.33)ActiveconfirmedHighBiPAP Titration 02/05/2019: 25/21; PSG 01/17/2019: AHI 140 - Could not tolerate BiPAP. ProblemObesity (458412402)Obesity, unspecified (E66.9)ActiveconfirmedProblem Chronic diastolic heart failure (871304834)Chronic diastolic (congestive) heart failure (I50.32)ActiveconfirmedProblemChronic respiratory failure (24995999) Chronic respiratory failure with hypoxia (J96.11)ActiveconfirmedProblemLong-term current use of inhaled steroid (069034183)[facility] (current) use of inhaled steroids (Z79.51)ActiveconfirmedProblemLong-term current use of drug therapy (842894507)Other m[facility] (current) drug therapy (Z79.899)Activeconfirmed Dupilumab (Dupixent)ProblemChronic obstructive pulmonary disease (21556209) Chronic obstructive pulmonary disease (J44.9)ActiveconfirmedProblemHypertension (89132370)HTN (hypertension) (I10)ActiveconfirmedProblemCOPD - Chronic obstructive pulmonary disease (71365245)Chronic obstructive pulmonary disease, unspecified COPD type (J44.9)ActiveconfirmedProblemMultiple polyps of nasal cavity and/or nasal sinus (disorder) (1598313378)Nasal polyps (J33.9)Active confirmed? Dupixent-induced headacheProblemMental disorder caused by drug (563914771)Cigarette nicotine dependence with nicotine-induced disorder (F17.219)Activeconfirmed1-1.5ppd x 40+ years (40-60 pack-year history)Problem Nasal polyposis (5645638673)Nasal polyposis (J33.9)ActiveconfirmedPrior treatments: Dupixent > Singulair, Zyrtec, Flonase (epistaxis)ProblemType II diabetes mellitus well controlled (313211005)Diabetes mellitus type 2, controlled (E11.9)ActiveconfirmedProblemAllergic rhinitis (40489201)Acute allergic rhinitis, unspecified seasonality, unspecified trigger (J30.9)Active confirmedProblemHistory of COVID-19 (088388032999984642)History of COVID-19 (Z86.16)Klduhpbqhwtxuhp09/2022 Vital Signs Heart Rate 80 /min 08/07/2024 Vpcsbzylxvh52.9 degrees Ppqrvebrhb68/01/2025Respiratory Rate18 /min08/07/2024 Osfmsoeo67 %08/07/2024lood pressure kjloufofu51 mm Hg08/07/20244491Qrrsry71 in 08/07/2024lood pressure mm Hg08/07/20243783Eykiri259.2 lbs08/07/2024MI 37.96 kg/m208/07/2024 Encounters Encounter Location Date Provider Diagnosis Pulmonary Medicine [facility] [place] [facility] [address] [place] [address] 06/04/2024 [facility] Pulmonary Medicine [address] [place] [address] [facility]-induced [facility] F17.219 and Encounter for screening for malignant neoplasm of respiratory organs Z12.2 Pulmonary Medicine [address] [place] [address]/09/2024 [facility] [place] [address] 08/07/2024Amina CassidyChronic obstructive pulmonary disease J44.9 ; Chronic respiratory failure with hypoxia J96.11 ; Cigarette nicotine dependence with nicotine-induced disorder F17.219 ; Obstructive sleep apnea (adult) (pediatric) G47.33 ; Nasal polyps J33.9 ; Encounter for screening for malignant neoplasm of respiratory organs Z12.2 ; Diabetes mellitus type 2, controlled E11.9 ; [facility] (current) use of inhaled steroids Z79.51 and [...] respiratory failure with hypoxia (ICD-10 - J96.11) Wgmv-bx-nvfi encounter performed with the patient to document [...] Coverage Start Date Coverage End Date [facility] [address] [address] [place] [address] [phone] [id number] Olu Michaels - patient is the zyzoebw56 2023 Medications Administered Medication Instructions Date of [...] the appropriate time. Post In[facility]als obtained. [facility][id number] LOT#[id number] EXP: 04/07/2024BuddyRadu suh 07/28/2022 05:35:03 PM > Medical (General) History [...] 08/05/2023 Ulnar Nerve Right Elbow right hip replacementinguinal hernia repair
--- OUTSIDE RECORDS SUMMARY | 2025-05-06 10:28 | XMS_ITS | Clinical Summary ---
Author Organization [employer] Address [id number] [place] [address] Care Team Providers Care Revenue Integrity Analyst Name Role Phone Ishmael Watts MD Primary Care Provider [phone] Allergies No known active allergies Medications MedicationSigDispense [...] Social History Tobacco UseTypesPacks/DayYears UsedDateSmoking Tobacco: Every JokKbqcklpctr406 Smokeless Tobacco: Never Tobacco Cessation:Ready to Q uit: Not Asked; Counseling Given: Not Answered Alcohol UseStandard Drinks/WeekCommentsNever0 (1 standard drink = 0.6 oz pure alcohol)ChildcareAnswerDate RojmuttgArxkqkluaLaiesey74/12/2019EmploymentAnswer Date BtdchvcwPmcmgvsscuFzjzgxd05/12/2019Hunger ScreeningAnswerDate Recorded Within the past 12 months we worried whether our food would run out before we got money to buy more.Never True12/07/2023Within the past 12 months the food we bought just didn't last and we didn't have money to get more.Never True 4Purpose - LifeAnswerDate RecordedPurpose and direction in lifeUnknown 05/28/2020ex and Gender InformationValueDate RecordedSex Assigned at BirthNot on fileLegal FqhPxdb0412/12/2014 12:10 PM EDTGender IdentityNot on fileSexual OrientationNot on file Last Filed Vital Signs Vital SignReadingTime TakenCommentsBlood Sdpqcbed370/7807 9:57 AM EDT Bdxdt832611/11/2021 8:40 AM YPHWxbajjtybqb06.6 ??C (97.8 ??F)08/28/2021 8:58 AM EDTRespiratory Dxlx655306/30/2021 3:30 PM ESTOxygen Wcltrrxfcw91%06/30/2021 3:40 PM ESTInhaled Oxygen Concentration--Xjooxt01.8 kg (209 lb)12/07/2023 9:57 AM EDT Pjpxgt635.6 cm (5' 4 )12/07/2023 9:57 AM EDTBody Mass Index35.8712/07/2023 9:57 AM EDT Plan of Treatment Health MaintenanceDue DateLast DoneCommentsDepression Ycujtfpaz48/16/1976 DTaP,Tdap and Td Vaccines (1 - Tdap)02/21/1983Zoster (Shingles) Vaccine (1 of 2) 02/21/2014dult BMI Oduuxirwa54/31/02502212/07/2023Tobacco Bedoverux98/31/2025 12/07/2023Influenza Zatfcud3801/07/20258347Rthqdluzrbf36, 08/24/2019 RSV ( or age 60+ yrs) (1 - 1-dose 75+ series)02/21/2039 Medical Devices ImplantedTypeAreaManufacturerDevice IdentifierShelf Expiration DateModel / Serial / LotMesh [id number] Progrip Srg - Sna - [id number] Implanted:Qty: 1 on 06/30/2021 [facility] Roc Ramsey [facility]Right: AbdomenMEDTRONIC [facility]10/07/[id number] / NA / [id number] Procedures Procedure NamePriorityDate/TimeAssociated DiagnosisCommentsPROVATION COLONOSCOPY Nihraku6608/24/2019 8:42 AM EDT from Last 3 Months [...] DateEnd Date Ishmael Watts MD [facility]
--- OUTSIDE RECORDS SUMMARY | 2025-05-06 10:28 | XMS_ITS | Clinical Summary ---
Author Organization [facility] Address [address] [place] [address] Care Team Providers Care Criminal Court Judge Name Role Phone Ishmael Watts MD Primary Care Provider [phone] Steve Pyle MD Unavailable [phone] Allergies No known active allergies Medications MedicationSigDispense QuantityRefillsLast FilledStart DateEnd DateStatus montelukast (Singulair) 10 MG tablet Take 1 tablet by mouth at bedtimeActive Tzbqkdksjch-Miadbllfy-Cnljbw (Trelegy Ellipta) 100-62.5-25 MCG/ACT aerosol powder Inhale [...] diabetes mellitus with diabetic peripheral angiopathy without cuwntdxw70/17/2025 Overview (10/23/2024): Noted by ALFRED Rae MD last documented on 20240723 Mild coronary artery vjelzmv5206/13/2024[facility], subsequent 04/24/2024 Assessment & Plan (04/24/2024 11:38 AM EST): Due for labs. Discussed proper diet and regular aerobic exercise. Need aerobic exercise 5-6 days a week for 30 minutes at a time. Smaller portions and limit total calories. Colonoscopy every 10 years. Tetanus every 10 years. Advised not to smoke. Discussed daily Aspirin therapy. Chronic pain of both tmshuicyo89/03/2024 Assessment & Plan (10/10/2023 9:06 AM EDT): Recent pain and likely arthritis. Start PT and check x-ray. Essential hypertension, hoxjin4704/13/2023 Assessment & Plan (12/24/2024 9:24 AM EDT): [...] and monitor PRN. Enlarged prostate with urinary nqjwhxsujlx62/06/2023astritis, alcoholic 04/13/2023hronic diastolic heart qojbzsj1004/13/2023 Assessment & Plan (12/24/2024 9:24 AM EDT): [...] PRN. Elevate legs PRN. Chronic obstructive pulmonary kftfalr9804/13/2023 Assessment & Plan (10/23/2024 10:04 AM EDT): [...] up with pulmonology. DDD (degenerative disc disease), kefers2204/13/2023 Assessment & Plan (12/24/2024 9:24 AM EDT): [...] use percocet PRN. Continue home PT exercises. Vgbximuvapps73/06/2023Impotence of organic evfkhs5504/13/2023Nasal polyp04/13/2023 Obstructive sleep apnea (adult) (pediatric)04/13/2023laque kjwyzjtcr57/06/2023 Peripheral vascular disease, rldmzezmfmc63/06/2023 Assessment & Plan (07/23/2024 10:53 AM EDT): No symptoms and increase ambulation. Bradycardia, sinus04/13/2023Type 2 diabetes mellitus with hyperglycemia, without long-term current use of ytdbsaj3604/13/2023 Assessment & Plan (12/24/2024 9:24 AM EDT): [...] limit carbs. Ulnar neuropathy of left upper vpvhebxdb97/06/2023Vitamin D insufficiency 04/13/2023arpal tunnel syndrome of left wrist04/13/2023Encounter for long-term (current) use of nyyksywhcrg82/06/2023Screening PSA (prostate specific antigen) 04/13/2023lass 2 severe [...] PT exercises. Resolved Problems ProblemNoted DateDiagnosed DateResolved AvwdAlihrmh41/30/202406/ Assessment & Plan (02/06/2024 1:30 PM EDT): History suggestive UTI and treat. Take cipro for infection. Send urine for culture. Increase water intake and cranberry juice. Use motrin or tylenol for discomfort. Fluhktkahrp00 Assessment & Plan (02/06/2024 1:30 PM EDT): Pain with urination and in testicles. Treat with cipro. Dlclwe93hronic hypoxic respiratory pjqsrlj9804/13/2023 10/23/2024 Assessment & Plan (06/06/2024 10:11 AM [...] FamilyNot on file10/09/2023How often do you attend congregational or pentecostal services?Patient btmgxivw85/02/2024o you belong to any clubs or organizations such as congregational groups, unions, fraternal or athletic groups, or [...] medical care, and heating?Not hard at all 10/09/2023[facility] - Occupational Stress QuestionnaireAnswerDate [...] steady place to sleep or slept in macedonelter (including now)?No10/09/2023Sex and Gender InformationValueDate RecordedSex Assigned at BirthNot on fileLegal SexMale 07/21/2022 11:01 PM EDTGender IdentityNot on fileSexual OrientationNot on file Last Filed Vital Signs Vital SignReadingTime TakenCommentsBlood Wvdwbivn758/7808 8:41 AM EDT Dyswy9357 8:41 AM LAZMrppvyzqlsq25.4 ??C (97.5 ??F)12/24/2024 8:41 AM EDTRespiratory Sfvw905312/24/2024 8:41 AM EDTOxygen Ckvzosuyit62%12/24/2024 8:41 AM EDTInhaled Oxygen Concentration--Fatczo011 kg (223 lb)12/24/2024 8:41 AM EDT Efihuo217.6 cm (5' 4 )12/24/2024 8:41 AM EDTBody Mass Index38.28012/24/2024 8:41 AM EDT Plan of Treatment Health MaintenanceDue DateLast DoneCommentsCT Csdtllvwvknk1964FIT-DNA 1965FIT1965FOBT1965Medicare Annual Wellness (AWV)1965 Bjpkgiwrqguoq1965Pneumococcal Vaccine: Pediatrics (0 to 5 Years) and At- Risk Patients (6 to 64 Years) (1 of 2 - PCV)02/21/1983Influenza Vaccine (#1) 2025Diabetes: Hemoglobin A1C/, 04/24/2024, 10/10/2023 Diabetes: Urine Protein Dedfrvoze79/19/133096/, 4Diabetes: Retinopathy Yarmeqsvk17/09/996201/01/2024, 7824Edxxtfivjre02/17/2030 08/24/2019, 08/24/2019Colorectal Cancer Tnfbjaaib57/17/2030 [place] [address] Care Teams Team MemberRelationshipSpecialtyStart DateEnd Date Ishmael Watts MD [facility] - [facility] Steve Pyle MD [address] [place] [id number] PCP - [facility]06/09/23
--- OUTSIDE RECORDS SUMMARY | 2025-05-06 10:29 | XMS_ITS | Clinical Summary ---
Author Organization [facility] Address [address] [place] [address] Phone Care Team Providers Care Solar Lab Technician Name Role Phone Ishmael Watts MD Primary Care Provider + Amador Dickens MD Unavailable [phone] Allergies No known active allergies Medications MedicationSigDispense QuantityRefillsLast FilledStart DateEnd DateStatus oxygen (O2) gas therapy 2l at bedtimeActive albuterol (Ventolin HFA) 90 mcg/actuation inhaler Inhale 2 puffs every 4 hours if needed.Active cetirizine (ZyrTEC) 10 mg tablet Take 1 tablet (10 mg) by mouth once daily at bedtime.Active oayqfbskjzc-mdfweuhjy-zpdhfcza (TRELEGY-ELLIPTA) 100-62.5-25 mcg blister with device Inhale [...] a day.Active Active Problems ProblemNoted DateDiagnosed DateFormer cvrsol2706/13/20244047Gfwoydikkxzqem71/05/2025 Mild coronary artery rzkzien2306/13/20244788Xjxxicvnt11/25/2024Other vrrqsma4207/22/2023 BMI 37.0-37.9, adult07/13/2023Sick sinus uiqzkqck11/06/2024hronotropic pwzicmmxhkss79/06/2024OPD (chronic obstructive pulmonary disease)05/23/2023 Current ryjzuo0205/23/20232191Cmmmnza98/15/2024Sinus kjayylhwmnm97/15/2024Obstructive sleep apnea (adult) (pediatric)04/13/2023eripheral vascular disease, wscuajfrnkd87/06/2023Type 2 diabetes mellitus with hyperglycemia, without long- term current use of xsgqudr3804/13/2023 Overview (07/22/2023): Last Assessment & Plan: Not checking BS and due for A1C. Stick to ADA diet and limit carbs. Essential hypertension, izxmph4205/13/2022 Overview (07/22/2023): Last Assessment & Plan: BP controlled and monitor PRN. Resolved Problems ProblemNoted DateDiagnosed DateResolved DateAbnormal stress test05/23/2023 12/01/2023hronic diastolic heart adxdaeb36 Overview (07/22/2023): Last Assessment & Plan: Occasional edema and use lasix PRN. Elevate legs PRN. Encounters DateTypeDepartmentCare WyecRzexsuzcbks22/30/2025 1:27 PM EDT - 03/07/2025 11:59 PM EDTHospital Encounter [facility] [address] [place] [address] Cardiac pacemaker in situ Discharge Disposition: Home03/01/2025Telephone at [facility] [address] [facility] [address] [place] [address] Myah Carias LPN from Last 3 Months Family History Medical HistoryRelationNameCommentsNo Known ProblemsFatherMental illnessMother RelationNameStatusCommentsFatherDeceasedMotherDeceased Social History Tobacco UseTypesPacks/DayYears UsedDateSmoking Tobacco: VybqhrDhkoyqrntb579 Started: 2024Smokeless Tobacco: Never Tobacco Cessation:Counseling Given: Not Answered Alcohol UseStandard Drinks/WeekCommentsNever0 (1 standard drink = 0.6 oz pure alcohol)Sex and Gender InformationValueDate RecordedSex Assigned at BirthNot on fileLegal AdjBmsk40/26/2022 1:30 AM ESTGender IdentityNot on fileSexual OrientationNot on file Last Filed Vital Signs Vital SignReadingTime TakenCommentsBlood Qqxklere426/7007 9:04 AM EDT Pqbgy374611/28/2024 9:04 AM QZTTfuqtycpojw46.4 ??C (97.5 ??F)08/05/2023 12:13 PM EDTRespiratory Eipl167808/05/2023 5:30 PM EDTOxygen Juciteesqe08%08/05/2023 5:30 PM EDTInhaled Oxygen Concentration--Sbcnga364 kg (225 lb)11/28/2024 9:04 AM EDT Ptnyqi555.6 cm (5' 4 )11/28/2024 9:04 AM EDTBody Mass Index38.62011/28/2024 9:04 AM EDT Plan of Treatment DateTypeDepartmentCare Team (Latest Contact Info)Xphkvfsqsto12/07/2026 8:40 AM ESTOffice Visit [address] [place] [address] Patti Ferrer MD [address] [place] [address] 07/17/2025 2:20 PM EDTAppointment [facility] [address] [place] [facility] [place] [facility] [address] 07/17/2025 3:00 PM EDTOffice Visit at [facility] [address] [facility] [address] [place] [id number] mAador Dickens MD [address] [facility] [address] [place] [address] Health MaintenanceDue DateLast DoneCommentsCT Ogqcjcswvixq1964Diabetes: Hemoglobin A1C1964Diabetes: Urine Protein Krgoburjo1964FIT-DNA (Cologuard)1964FIT1964HIV Svxaexpyu1964Lipid Panel1965 Medicare Annual Wellness Visit (AWV)1965 8164Vvfpbjvxrbvyj1964MMR Vaccines (1 of 1 - Standard series)02/21/1965Diabetes: Retinopathy Screening 02/21/1974Hepatitis C Kuboohdtf56/16/1982Pneumococcal Vaccine (1 of 2 - PCV) 02/21/1983DTaP/Tdap/Td Vaccines (1 - Tdap)02/21/1986PSA Prostate Cancer Xdspybkzg27/16/2014RSV High Risk: (Elderly (60+) or Population) (1 - Risk 50-74 years 1-dose series)02/21/2014Zoster Vaccines (1 of 2)02/21/2014 Creatinine Level503/, 07/29/20239690Fjytwlsxdkgcnm33/29/2025 08/05/2023otassium Level5008/05/2023, 4COVID-19 Vaccine (1 - season)2025Influenza Vaccine (#1)5085Vexlztammec19/17/2030 08/24/2019Colorectal Cancer Genghsxal15/17/2030HIB VaccinesAged OutNo longer eligible based on patient's [...] / LotLead, Capsurefix Novus, 52 Cm - [id number] Implanted:Qty: 1 on 08/05/2023 by [facility]ens [facility] PacemakerLeft: ChestMEDTRONIC [id number] / [id number] / [id number], Capsurefix Novus, 45 Cm - [id number] Implanted:Qty: 1 on 08/05/2023 by [facility]ador Dickens [facility]Cardiac PacemakerLeft: ChestMEDTRONIC [id number] / [id number] / [id number], Dual Chamber, Kae Mri Xt Dr - [id number] Implanted:Qty: 1 on 08/05/2023 by [facility]ens [facility] PacemakerLeft: ChestMEDTRONIC [id number] / [id number] / [id number] Procedures Procedure NamePriorityDate/TimeAssociated DiagnosisCommentsCARDIAC DEVICE CHECK - REMOTE - KHCSTOMZLVrywxlg57/30/2025 1:36 PM EDT Cardiac pacemaker in situ TRANSTHORACIC ECHO (TTE) TWTZAVFMIZSV11/29/2024 1:26 PM EDT Chronotropic incompetence Abnormal stress test Dyspnea Bradycardia, unspecified BASIC METABOLIC ZZICEURIU35/29/2024 12:18 PM EDT from Last 3 Months [...] excursion3.6cmSYNGOMV avg E/e' ratio 7.78SYNGOLA vol index A/L29.3ml/z8XDDDAKQ free wall pk S'15.40cm/sSYNGORVSP 23.1kbUjNYNMHOEMJd7.28cmSYNGOAortic Valve Area by Continuity of Peak Velocity 2.22cu9EELQOMD pk grad8.2mmHgSYNGOAortic Valve Area by Continuity of VTI2.62 az4RIUGBPY A4C EF62.4SYNGOSpecimen (Source)Anatomical Location / Laterality Collection Method / VolumeCollection TimeReceived Time08/05/2023 11:46 AM EDT Narrative SYNGO - 08/05/2023 2:30 PM EDT ? [place] [address] TRANSTHORACIC ECHOCARDIOGRAM REPORT Patient Name: ?LILIANA MICHAELS ? Reading Physician: ?[id number] Jai Morris ?MD, FACC Study Date: ?08/05/2023 ?Ordering Provider: ?[id number] ANA M M ?STANLEY MRN/PID: ? [id number] ? Fellow: Accession#: ?[id number] ? Nurse: Date of /Age: 10 1965 / 58 ?[employer] Travel Counselor: ?Eli ? years ?Mccarthy-Brown RDCS Gender: ?M ?Additional Staff: Height: ?162.56 cm ?Admit Date: Weight: ?90.72 kg ? Admission Status: ? Outpatient BSA / BMI: ? 1.96 m2 / 34.33 ?Department Location: ??[facility] ? kg/m2 ?Echo Lab Blood Pressure: 128 /73 mmHg Study Type: ?TRANSTHORACIC ECHO (TTE) COMPLETE Diagnosis/ICD: Bradycardia, unspecified-R00.1 Indication: ?Abnormal EKG, Pre-EP CPT Codes: ? Echo Complete w Full Doppler-[id number] Study Detail: The following Echo studies were [...] Area A2C: ? 18.9 cm2 [place] A4C: 5.8 cm [place] A2C: 5.5 cm LA Volume Index: ?? [...] ??(0.6-0.9m/s) PV Max PG: ? 6.6 mmHg [id number] Jai Morris MD, [facility] Electronically signed on 08/05/2023 at 2:30:14 PM Final Procedure Note Jai Morris MD - 08/05/2023 [place] [address] TRANSTHORACIC ECHOCARDIOGRAM REPORT Patient Name: LILIANA MICHAELS Reading Physician: [id number] Long MD, [facility] Study Date: 08/05/2023 Ordering Provider: [id number] SALINAS MRN/PID: [id number] Fellow: Nurse: Date of /Age: 10 1965 [employer] Travel Counselor: Eli Gibbons [facility] Gender: M Additional Staff: Height: 162.56 cm Admit Date: Weight: 90.72 kg Admission Status: Outpatient BSA / BMI: 1.96 m2 / 34.33 Department Location: [facility]/ Echo Lab Blood Pressure: 128 /73 mmHg Study Type: TRANSTHORACIC ECHO (TTE) COMPLETE Diagnosis/ICD: Bradycardia, unspecified-R00.1 Indication: Abnormal EKG, Pre-EP CPT Codes: Echo Complete w Full Doppler-[id number] Study Detail: The following Echo studies were [...] LA Area A2C: 18.9 cm2 [place] [employer] A4C: 5.8 cm [place] [employer] [place] [employer] A2C: 5.5 cm LA Volume Index: 27.0 [...] 1.3 m/s (0.6-0.9m/s) PV Max P.6 mmHg [id number] Jai Morris MD, [facility] Electronically signed on 08/05/2023 at 2:30:14 PM Final Authorizing ProviderResult TypeResult StatusAna M Dodge Stanley CONSULTANT RN-CNPCV ECHO PROCEDURESFinal ResultPerforming OrganizationAddressCity/State/ZIP CodePhone Number SYNGO * Basic Metabolic Panel (08/05/2023 12:18 PM EDT)ComponentValueRef RangeTest MethodAnalysis TimePerformed AtPathologist EphjnkjokKzogvzx4988 - 99 mg/dL LAB CHEMISTRY METHOD 08/05/2023 1:[address] [facility] GKXFgksfe170631 - 145 mmol/L LAB CHEMISTRY METHOD 08/05/2023 1:[address] [facility] LABPotassium4.03.5 - 5.3 mmol/L LAB CHEMISTRY METHOD 08/05/2023 1:[address] [facility] GQSXpmtmjml91372 - 107 mmol/L LAB CHEMISTRY METHOD 08/05/2023 1:[address] [facility] WQAFqwmxotadpj2050 - 32 mmol/L LAB CHEMISTRY METHOD 08/05/2023 1:[address] [facility] LABAnion Kyj0549 - 20 mmol/L LAB CHEMISTRY METHOD 08/05/2023 1:[address] [facility] LABUrea Ykfeuudn112 - 23 mg/dL LAB CHEMISTRY METHOD 08/05/2023 1:[address] [facility] LABCreatinine1.120.50 - 1.30 mg/dL LAB CHEMISTRY METHOD 08/05/2023 1:[address] [facility] MUYdLXI89>60 mL/min/1.73m*2 LAB CHEMISTRY METHOD 08/05/2023 1:[address] [facility] LABComment: Calculations of estimated GFR are performed using the 2020 CKD-EPI Study Refit equation without therace variable for the IDMS-Traceable creatinine methods. https://jasn.asnjournals.org/content//ASN.0986053303 Calcium9.68.6 - 10.3 mg/dL LAB CHEMISTRY METHOD 08/05/2023 1:29 PM [facility] LABSpecimen (Source)Anatomical Location / LateralityCollection Method / VolumeCollection TimeReceived TimeBlood Venous blood specimen / UnknownVenipuncture / Mnoseaz1608/05/2023 12:18 PM EDT 08/05/2023 12:52 PM EDT Narrative Authorizing ProviderResult TypeResult StatusAna M Dodge Stanley CONSULTANT RN-CNPLAB BLOOD ORDERABLESFinal ResultPerforming OrganizationAddressCity/State/ZIP CodePhone Number [facility] [address] [place] [address] from Last 3 Months or Most Recently Relevant to Health Maintenance Insurance Advance Directives For more information, please contact: [phone] (Available ) * Full Code (Latest Code Status on File) Date ActivatedDate InactivatedComments08/05/2023 12:02 PMQuestionAnswerComments Plan of Care:* Code Status Discussion Not Completed Decision Maker:* Provider Rationale:* Patient condition does not warrant discussion Care Teams Team MemberRelationshipSpecialtyStart DateEnd Date Ishmael Watts MD [address] [place] [address] PCP - GeneralFamily Medicine06/29/23 Amador Dickens MD [address] [facility] [address] [place] [address] CardiologistElectrophysiology05/17/24
--- OUTSIDE RECORDS SUMMARY | 2025-05-06 10:36 | XMS_ITS | CCD ---
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 Name Role Phone SIMONE RUIZ Admitting Unavailable SIMONE RUIZ Attending Unavailable ISHMAEL SIMON Referring Unavailable ISHMAEL SIMON Primary Care Unavailable JEY MUNGUIA Attending Unavailable JEY MUNGUIA R Surgeon Unavailable SC Procedure Practitioner Unavailab ISHMAEL Campoverde Primary Care Unavailable ISHMAEL SIMON Referring Unavailable JEY MUNGUIA R Admitting Unavailable JEY MUNGUIA Attending Unavailable ISHMAEL SIMON Primary Care Unavailable [...] IBARRA ., DR RICKY Bateman Admitting Unavailable IBARAR ., DR RICKY Bateman Attending Unavailable NADEREMarilee, DR ISHMAEL Rae Primary Care Unavailable Alfred LANE, Ishmael Vallejo Primary Care Provider Alfred LANE, Ishmael Vallejo Primary Care Provider Alfred LANE, Ishmael Vallejo Primary Care Provider [employer] EDGE BANDING MACHINE OFFBEARER-POLITICAL THEORY PROFESSOR, Naima E Unavailable Ishmael Simon MD Primary Care Provider Ishmael Simon MD Primary Care Provider Rubio VENDING MECHANIC-C, Danielle Priest Attending Provider [phone] Danielle Bergeron Attending Unavailable Ishmael Simon Primary [...] Primary Care Provider Amador Son MD Unavailable [phone] Ishmael Simon MD Primary Care Provider [...] (Original)acetaminophen 325 mg oral tablet (1 source)Start: 37-94-2032nknj 1 tablet by mouth every four hours as needed acetaminophen (Tylenol) tablet 650 mgacetaminophen 325 mg / oxyCODONE hydrochloride 7.5 mg oral tablet (20 sources)Opioid AgonistStart: 12-01-2023 End: 41-10-2910ftuu 1 tablet by mouth four times daily as needed for pain oxyCODONE-acetaminophen (Percocet) 7.5-325 MG tablet Indications: Degeneration of lumbar intervertebral disc Take 1 tablet by mouth 4 (four) times a day as needed for severe pain or moderate pain 120tablet 12/17/2024 01/16/2025 Active Start: 79-50-5828fham 1 tablet by mouth four times daily as neededoxyCODONE- Acetaminophen 7.5-325 MG Oral Tablet TAKE 1 TABLET BY MOUTH FOUR TIMES A DAY NEEDED Quantity: 120 Refills: 0 Ordered: 01-Apr-2021 DO Start : 30-Mar-2021 ActiveStart: 56-98-3729umePGQGGM-acetaminophen (PERCOCET) 7.5-325 mg per tablet 08/16/2019 ActiveStart: 83-43-1395ekqo 1 tablet by mouth every six hours as neededoxyCODONE-acetaminophen (Percocet) 7.5-325 mg tablet Take 1 tablet by mouth every 6 hours if neededfor severe pain (7 - 10). 03/30/2021 ActiveStart: 06-19-2018 End: 68-21-6743htea 1 tablet by mouth every four to six hours as needed for pain Oxycodone-Acetaminophen 5-325 mg Tablet Discontinued 1 TAB PO EVERY 4-6 HOURS as needed for Pain June 19, 2018 12:00am June 22, 2018 9:[id number] 200 actuat albuterol 0.09 mg/actuat metered dose inhaler (20 sources)beta2-Adrenergic AgonistStart: 06-06-2024 End: 03-39-8709yhek 2 puff(s) by inhalation every four hours for wheezing albuterol HFA 90 mcg/act inhaler Indications: Chronic obstructive pulmonary disease with acute exacerbation (HCC) Inhale 2 puffs every 4 (four) hours if needed for wheezing 18 g 3 06/06/2024 ActiveStart: 06-23-2018 End: 57-49-2835Zpzhjdtwl Sulfate 90 mcg/actuation aerosol powdr breath activated [...] Inhibitor, Nonsteroidal Anti-inflammatory Drug Start: 12-01-2023 End: 89-61-3517fpvb 1 tablet by mouth once dailyaspirin 81 mg EC tablet Indications: Chronotropic incompetence Take 1 tablet (81 mg) by mouth once d aily. 12/01/2023 11/30/2024 Activebaclofen 10 mg oral tablet (20 sources)gamma-Aminobutyric Acid-ergic AgonistStart: 95-70-7395pjxw 0.5-1 tablets by mouth twice dailybaclofen (Lioresal) 10 MG tablet TAKE 1/2 TO 1 TABLET BY MOUTH TWICE A DAY 01/27/2023 Activetake 1 tablet by mouth three times dailybaclofen (LIORESAL) 10 mg tablet Take 1 tablet (10 mg total) by mouth 3 (three) times a day. Activecephalexin 500 mg oral capsule (14 sources)Cephalosporin AntibacterialStart: 66-89-9721qeykctldut (Keflex) 500 MG capsule 07/30/2024 Activecetirizine hydrochloride 10 mg oral tablet (20 sources)Histamine-1 Receptor AntagonistStart: 64-97-4189tehg 1 tablet by mouth once dailycetirizine (ZyrTEC) 10 MG tablet Indications: Allergic rhinitis due to pollen TAKE 1 TABLET BY MOUTH EVERY DAY 90 tablet 3 09/05/2024 Active cholecalciferol 0.05 mg oral tablet (7 sources)Vitamin DStart: 07-23-2019 End: 16-82-4860xsbs 1 tablet by mouth once dailycholecalciferol, vitamin D3, 2,000 units tablet Take 1 tablet by mouth daily. 07/23/2019 12/07/2023 DiscontinuedStart: 59-86-5656hujk 1 tablet by mouth before mealtime Cholecalciferol (Vitamin D3) 50 mcg (2,000 unit) tablet Active 50 MCG PO Before meals July 06, 2019 12:00amtake 1 capsule by mouth once dailyVitamin D 50 MCG (2000 UT) Oral Capsule TAKE 1 CAPSULE Daily Quantity: 90 Refills: 0 Ordered: 28-Jan-2022 DO Activeciprofloxacin 500 mg oral tablet (3 sources)Quinolone AntimicrobialStart: 02-06-2024 End: 05-87-8392tahj 1 tablet by mouth in the morningciprofloxacin (Cipro) 500 MG tablet Indications: Acute prostatitis Take 1 tablet (500 mg) by mouth in the morning and 1 tablet (500 mg) before bedtime. Do all this for 14 days. 28 tablet 02/06/2024 02/20/2024 Active0.5 ml dulaglutide 1.5 mg/ml auto-injector (7 sources)GLP-1 Receptor AgonistStart: 04-24-2024 End: 87-66-3004gmoryx 0.75 mg by subcutaneous injection every weekDulaglutide (Trulicity) 0.75 MG/0.5ML solution auto-injector Indications: Type 2 diabetes mellitus with hyperglycemia, without long-term current use of insulin ([facility]) Inject 0.75 mg under the skin1 (one) time per week 2 mL 5 04/24/2024 06/06/2024 Discontinued2 ml dupilumab 150 mg/ml auto-injector (1 source)Interleukin-4 Receptor alpha AntagonistStart: 06-17-2022 End: 13-81-1113MXJZTDII PEN 300 mg/2 mL pen injector SUBQ injection pen Inject under the skin. 1 Injection every 2weeks. 06/17/2022 12/07/2023 Urmgtvytrkzs71 actuat fluticasone furoate 0.1 mg/actuat / umeclidinium 0.0625 mg/actuat / vilanterol 0.025 mg/actuat dry powder inhaler (20 sources)Anticholinergic, Corticosteroid, beta2-Adrenergic AgonistStart: 99-98-2303TQGCNJI ELLIPTA 100-62.5-25 mcg blister with device 08/17/2019 Active Start: 40-22-4422Zpbqvziqgdf-Umeclidin-Vilanter (Trelegy Ellipta) 100-62.5-25 mcg blister with device Active 1 MCG INHALATION As Directed July 06, 2019 12:00amtake 1 dose by inhalation in the yfeglzoTzmumywovyl-Qehvwieun-Osmmdl (Trelegy Ellipta) 100-62.5-25 MCG/ACT aerosol powder Inhale 1 Dose in the morning. Naabupsxlivpvvqcg-aprprdecb-gbrjuxbo (TRELEGY-ELLIPTA) 100-62.5-25 mcg blister with device Inhale 1 puff.Use as directed Activefurosemide 40 mg oral tablet (20 sources)Loop DiureticStart: 70-72-3238hwhw 1 tablet by mouth at bedtime furosemide (Lasix) 40 MG tablet Indications: Chronic diastolic heart failure (HCC) TAKE 1 TABLET (40 MG) BY MOUTH IN THE MORNING AND AT BEDTIME 180 tablet 3 06/18/2024 ActiveStart: 06-19-2018 End: 92-29-4919njbu 1 tablet by mouth once dailyFurosemide 40 mg Tablet Discontinued 40 MG PO Daily June 19, 2018 12:00am June 23, 2018 12:19pmgabapentin 300 mg oral capsule (20 sources)Anti-epileptic AgentStart: 07-06-2019 End: 85-05-5972wiof 1 capsule by mouth once daily at [...] oral tablet (2 sources)Quinolone AntimicrobialStart: 07-23-2024 End: 85-91-1722elel 1 tablet by mouth once dailylevoFLOXacin (Levaquin) 750 MG tablet Indications: Chronic obstructive pulmonary disease with acuteexacerbation (CMS/HCC) Take 1 tablet (750 mg) by mouth Daily for 7 days 7 tablet 07/23/2024 07/30/2024 Activemontelukast 10 mg oral tablet (20 sources)Leukotriene Receptor AntagonistStart: 47-57-8753kmitsdaylxj (SINGULAIR) 10 mg tablet 08/12/2019 Activenabumetone 500 mg oral tablet (20 sources)Nonsteroidal Anti-inflammatory DrugStart: 07-06-2019 End: 65-69-4132oabo 1 tablet by mouth twice dailynabumetone (Relafen) [...] release oral capsule (20 sources)Proton Pump InhibitorStart: 57-34-2337uuge 1 capsule by mouth once dailyomeprazole (PriLOSEC) [address] capsule Indications: Alcoholic gastritis without bleeding , Alcoholic gastritis TAKE 1 CAPSULE BY MOUTH EVERY DAY 90 capsule 1 11/16/2024 ActiveStart: 60-42-3386ttul 1 tablet by mouth once daily Omeprazole 20 mg Tablet,Delayed Release (Dr/Ec) Active 20 MG PO Daily June 19, 2018 12:00am2 ml ondansetron 2 mg/ml injection (1 source)Serotonin-3 Receptor AntagonistStart: 81-43-7319hxvv 4 mg intravenously every eight hours as neededondansetron (Zofran) injection 4 mg oxygen (O2) gas therapy (18 sources)oxygen (O2) gas therapy 2l at bedtime Activeoxygen (O2) gas therapy 2l at bedtime 0 Activeperflutren lipid microspheres (Definity) injection 0.5-10 mL of dilution (1 source)Start: 95-61-5242mvrbaflobe lipid microspheres (Definity) injection 0.5-10 mL of dilutionpredniSONE 50 mg oral tablet (6 sources)Start: 07-23-2024 End: 37-13-5957hjpp 1 tablet by mouth once dailypredniSONE (Deltasone) 50 MG tablet Indications: Chronic obstructive pulmonary disease with acute ex acerbation (CMS/HCC) Take 1 tablet (50 mg) by mouth Daily for 6 days 6 tablet 07/23/2024 07/29/2024tiveStart: 01-13-2024 End: 22-60-4394qgnm 1 tablet by mouth once dailypredniSONE (Deltasone) 50 MG tablet Indications: Chronic obstructive pulmonary disease, unspecifiedCOPD type (CMS/HCC) Take 1 tablet (50 mg) by mouth Daily for 6 days 6 tablet 01/13/2024 01/19/2024 ActiveStart: 63-91-1573Zykzajwsaj 10 mg Tablet Active 60 MG PO Daily July 06, 2019 12:00am administer with food or milkpregabalin 100 mg oral capsule (10 sources)Start: 06-26-2024 End: 73-24-8758urwu 1 capsule by mouth in the morningpregabalin (Lyrica) 100 MG capsule Take 100 mg by mouth in the morning and 100 mg before bedtime. 10/23/2024 Discontinuedrosuvastatin calcium 10 mg oral tablet (20 sources)HMG-CoA Reductase InhibitorStart: 06-13-2024 End: 02-24-2703hpyd 1 tablet by mouth once dailyrosuvastatin (Crestor) 10 mg tablet Indications: Peripheral vascular disease, unspecified , Hyperlipidemia, unspecified hyperlipidemia type Take 1 tablet (10 mg) by mouth once daily. 90 tablet 3 06/13/2024 06/13/2025 Active0.25 mg, 0.5 mg dose 1.5 ml semaglutide 1.34 mg/ml pen injector (3 sources)Start: 11-40-0208cerwauylfrx (Ozempic, 0.25 or 0.5 MG/DOSE,) 2 MG/1.5ML [...] mg weekly 1 each 5 04/24/2024 ActiveStart: 91-13-2288twyhvhzymga (Ozempic, 0.25 or 0.5 MG/DOSE,) 2 MG/1.5ML solution pen-injector Indications: Type 2 diabetes mellitus with hyperglycemia, without long-term current use of insulin (CMS/HCC) 0.25 mg SC weekly x 4 weeks, then 0.5 mg weekly 1 each 5 04/24/2024 Activespironolactone 100 mg oral tablet (20 sources)Aldosterone AntagonistStart: 76-97-8588exuc 1 tablet by mouth once dailyspironolactone (Aldactone) 100 MG tablet Indications: Essential hypertension, benign TAKE 1 TABLET BY MOUTH EVERY DAY 90 tablet 5 04/09/2024 ActiveStart: 48-60-1068udjr 1 tablet by mouth in the morningspironolactone (ALDACTONE) 50 mg tablet Take 1 tablet (50 mg total) by mouth in the morning. 08/12/2019 ActiveStart: 15-11-6801Sahwsyoxynnqiy (Aldactone) 50 mg Tablet Active 25 MG PO Daily 0 June 23, 2018 12:18pmStart: 06-19-2018 End: 13-99-2863eafo 1 tablet by mouth once dailySpironolactone (Aldactone) 50 mg Tablet Discontinued 50 MG PO Daily June 19, 2018 12:00am June 23, 2018 12:19pmtopiramate 50 mg oral tablet (13 sources)Start: 96-53-6125hybt 1 tablet by mouth in the morningtopiramate 50 MG tablet Indications: Degeneration of intervertebral disc of lumbar region with discogenic back pain and lower extremity pain Take 50 mg by mouth in the morning and 50 mg before bedtime. 60 tablet 5 12/24/2024 ActiveStart: 11-77-4642dgcz 1 tablet by mouth in the morningtopiramate 50 MG tablet Indications: Degeneration of intervertebral disc of lumbar region with discogenic back pain and lower extremity pain Take 50 mg by mouth in the morning and 50 mg before bedtime. 60 tablet 5 12/24/2024 ActiveStart: 10-23-2024 End: 98-16-1057haki 1 tablet by mouth in the morningtopiramate (Topamax) 25 MG tablet Indications: Degeneration of intervertebral disc of lumbar regionwith discogenic back pain and lower extremity pain Take 1 tablet (25 mg) by mouth in the morning and 1 tablet (25 mg) before bedtime. 60 tablet 5 10/23/2024 12/24/2024 Discontinued (Reorder)traMADol hydrochloride 50 mg oral tablet (1 source)Opioid AgonistStart: 33-11-4327dnup 1 tablet by mouth every six hours as neededtraMADol (Ultram) tablet 50 mg Completed/Discontinued Medications MedicationDrug Class(es)DatesSig (Normalized)Sig (Original)ceFAZolin 1000 mg injection (1 source)Cephalosporin AntibacterialStart: 08-05-2023 End: 64-42-6178nzMCGkrsp in dextrose (iso-os) (Ancef) IVPB 1 gchlorhexidine gluconate 40 mg/ml medicated liquid soap (1 source)Start: 08-05-2023 End: 98-59-1821cfulqpkustzed (Hibiclens) 4 % liquidStart: 08-05-2023 End: 21-47-9282ujchftmfcgvlf (Hibiclens) 4 % liquidcyclobenzaprine hydrochloride 10 mg oral tablet (2 sources)Muscle RelaxantStart: 09-15-2018 End: 01-70-6449yzdt 1 tablet by mouth three times dailyCyclobenzaprine 10 mg tablet Discontinued 10 MG PO Three times daily 9 September 14, 2018 11:00pm 2019 12:12amDupixent SOPN (1 source)Dupixent SOPN USE DIRECTED Quantity: 0 Refills: 0 Ordered: 14-Jul-2022 DO Activelisinopril 20 mg oral tablet (2 sources)Angiotensin Converting Enzyme InhibitorStart: 06-19-2018 End: 37-59-0011lxrc 1 tablet by mouth once dailyLisinopril 20 mg Tablet Discontinued 20 MG PO Daily June 19, 2018 12:00am June 23, 2018 12:17pmmethocarbamol 750 mg oral tablet (2 sources)Muscle RelaxantStart: 06-19-2018 End: 49-92-4999qgrl 1 tablet by mouth twice daily as needed for pain Methocarbamol (Robaxin-750) 750 mg Tablet Discontinued 750 MG PO Twice daily as needed for Pain June 19, 2018 12:00am July 06, 2019 12:10am methylPREDNISolone 16 mg oral tablet (4 sources)CorticosteroidStart: 06-23-2018 End: 65-02-4096iwfj 2 tablets by mouth once daily in the morning Methylprednisolone (Medrol) 16 mg tablet Discontinued 32 MG PO Every morning July 06, 2019 12:09am July 06, 2019 12:09ammupirocin 0.02 mg/mg topical ointment (1 source)RNA Synthetase Inhibitor AntibacterialStart: 08-05-2023 End: 40-16-4400keuwqwuro (Bactroban) 2 % ointment 1 ApplicationStart: 08-05-2023 End: 18-59-4726qkkvlbsfy (Bactroban) 2 % ointment 1 ApplicationOxygen (5 sources)Oxygen 2l at bedtime Quantity: 0 Refills: 0 Ordered: 28-Jan-2022 DO Ayroct3049 ml sodium chloride 9 mg/ml injection (2 sources)Start: 08-05-2023 End: 49-06-9775oaijlf chloride 0.9% infusiontamsulosin hydrochloride 0.4 mg oral capsule (2 sources)alpha-Adrenergic BlockerStart: 06-19-2018 End: 93-58-5152igjj 1 capsule by mouth once dailyTamsulosin (Flomax) 0.4 mg Capsule Discontinued 0.4 MG PO Daily June 19, 2018 12:00am July 06, 2019 12:08amtiotropium 0.018 mg inhalation powder (2 sources)AnticholinergicStart: 06-23-2018 End: 46-33-1798gjaw 1 capsule by inhalation once dailyTiotropium [place] (Spiriva With Handihaler) 18 mcg capsule, w/inhalation [...] pain; Translations: [Right lower quadrant pain] Onset: 98-94-4157AnitdxagRdfgaao-related disorders (20 sources)Alcoholic gastritis; Translations: [Alcoholic gastritis without bleeding]Onset: 400626-64-5403VpyfjmpIqlkark dysrhythmias (20 sources)Sick sinus syndrome; Translations: [Sick sinus syndrome]Onset: 408376-29-8740ZykedkqEjrsmwt obstructive pulmonary disease and bronchiectasis (20 sources)Chronic obstructive lung disease; Translations: [Chronic airway obstruction, not elsewhere classified]Onset: 072551-19-7148XmmmtjeKxtydmw on above:Problem List clean-up per request of Phys. EHR CmteConduction disorders (20 sources)Chronotropic incompetence; Translations: [Other specified conduction disorders]Onset: 959496-51-1286WqyzidfCdmrgheuci heart failure; nonhypertensive (20 sources)Chronic diastolic heart failure; Translations: [Chronic diastolic (congestive) heart failure]Onset: 04-13-2023 Resolved: 188964-30-8518VcniukbJrfaqbqo atherosclerosis and other heart disease (20 sources)Coronary arteriosclerosis; Translations: [Atherosclerotic heart disease of [place] coronary artery without angina pectoris]Onset: 06-13-2024 46-30-7392PwmeggeBpwudaps mellitus with complications (20 sources)Type 2 diabetes mellitus with hyperglycemia; Translations: [Type 2 diabetes mellitus]Onset: 784836-96-1960PxhjtbhGumuxqyia of lipid metabolism (20 sources)Hyperlipidemia, unspecified; Translations: [Dyslipidemia]Onset: 062767-15-5411ZljwlvbEbxhzfwlc hypertension (20 sources)Essential (primary) hypertension; Translations: [Benign essential hypertension]Onset: 854108-68-3099KdibuuqDuqmkaz on above:Problem List clean-up per request of Phys. EHR CmteFluid and electrolyte disorders (4 sources)Hyponatremia; Translations: [Hypo-osmolality and hyponatremia] 42-71-9325NtquglshIisixfw on above:Problem List clean-up per request of Phys. EHR CmteHyperplasia of prostate (20 sources)Benign prostatic hypertrophy with outflow obstruction; Translations: [Benign prostatic hyperplasia with lower urinary tract symptoms]Onset: 738337-96-7035AbwgzbrPesyznechcj chest pain (2 sources)Atypical chest pain; Translations: [Other chest pain]04-20-2023 EpisodicComment on above:Problem List clean-up per request of Phys. EHR Cmte Nutritional deficiencies (20 sources)Vitamin D deficiency, unspecified; Translations: [Vitamin D deficiency]Onset: 52-99-0966QprufveUhimdqdlsavhlk (20 sources)Osteoarthritis of right hip joint; Translations: [Unilateral primary osteoarthritis, right hip]Onset: 455247-27-0519ZjvqwmaCjwhi connective tissue disease (4 sources)Neuralgia and neuritis, unspecified; Translations: [NEURALGIA AND NEURITIS UNSPECIFIED]Onset: 45-03-1876YctenimoBksny hereditary and degenerative nervous system conditions (1 source)Dystonia, unspecified; Translations: [DYSTONIA UNSPECIFIED]Onset: 96-47-3150KjxfepeVsksc inflammatory condition of skin (20 sources)Plaque psoriasis; Translations: [Psoriasis vulgaris]Onset: 551029-69-2849RuakariMyguq lower respiratory disease (1 source)Dyspnea, unspecified; Translations: [Dyspnea, unspecified]Onset: 40-14-8924IwbsxgnbSpvpu lower respiratory disease (2 sources)Rib pain; Translations: [Pleurodynia]77-84-6576VnmieuezOolwjjh on above:Problem List clean-up per request of Phys. EHR CmteOther lower respiratory disease (2 sources)Dyspnea on exertion; Translations: [Other forms of dyspnea]11-09-2023 EpisodicOther male genital disorders (20 sources)Secondary erectile dysfunction; Translations: [Male erectile dysfunction, unspecified]Onset: 624991-93-1875FbdrpykFgjwq male genital disorders (2 sources)Male erectile dysfunction, unspecified; Translations: [Impotence of organic origin]65-36-8565CkzxukxVseow nervous system disorders (4 sources)Other specified mononeuropathies; Translations: [OTHER SPECIFIED MONONEUROPATHIES]Onset: 17-62-8018WkvysjeSvlqt nervous system disorders (1 source)Other chronic pain; Translations: [OTHER CHRONIC PAIN]Onset: 78-77-5154XujzwzgBgubv nervous system disorders (20 sources)Ulnar neuropathy of left arm; Translations: [Lesion of ulnar nerve, left upper limb]Onset: 411540-13-9156LrebctvSzhpy nervous system disorders (20 sources)Carpal tunnel syndrome of left wrist; Translations: [Carpal tunnel syndrome, left upper limb]Onset: 693480-71-6235PmfrqusGbdll nervous system disorders (1 source)Bilateral carpal tunnel syndrome; Translations: [Carpal tunnel syndrome, bilateral upper limbs]38-01-1306JuemlruDcmjc nervous system disorders (1 source)Carpal tunnel syndrome; Translations: [Carpal tunnel syndrome, unspecified upper limb]50-74-2980HuqzxhwZnmbc nutritional; endocrine; and metabolic disorders (5 sources)Obesity; Translations: [Obesity, unspecified]ChronicOther nutritional; endocrine; and metabolic disorders (1 source)Obesity, unspecified; Translations: [OBESITY UNSPECIFIED]Onset: 44-40-7406TryaxdoSfmxc nutritional; endocrine; and metabolic disorders (20 sources)Body mass index 30+ - obesity; Translations: [Body mass index (BMI) 34.0-34.9, adult]Onset: 025638-84-8436QmjmimuVzygn nutritional; endocrine; and metabolic disorders (20 sources)Severe obesity; Translations: [Class 2 severe obesity due to excess calories with serious comorbidity and body mass index (BMI) of 37.0 to 37.9 in adult ([facility])]Onset: 443656-45-2798XhxudzxOlotf nutritional; endocrine; and metabolic disorders (2 sources)Body mass index (BMI) 38.0-38.9, adult; Translations: [Body mass index (BMI) 38.0-38.9, adult]Onset: 46-25-1600UwxdfvdFtkrr nutritional; endocrine; and metabolic disorders (2 sources)Body mass index (BMI) 37.0-37.9, adult; Translations: [Body mass index (BMI) 37.0-37.9, adult]Onset: 98-27-7257QgyigncKggqb skin disorders (2 sources)Localized swelling of left hand; Translations: [Localized swelling, mass and lump, left upper limb]40-30-4157HdsqiivnGybaeqdela and visceral atherosclerosis (20 sources)Peripheral vascular disease; Translations: [Peripheral vascular disease, unspecified]Onset: 541437-67-3919KusoragKdurqfvy codes; unclassified (20 sources)Obstructive sleep apnea syndrome; Translations: [Obstructive sleep apnea (adult) (pediatric)]Onset: 826608-53-2226WqsnaniCocyatjcjcm failure; insufficiency; arrest (adult) (20 sources)Chronic hypoxemic respiratory failure; Translations: [Chronic respiratory failure with hypoxia]Onset: 04-13-2023 Resolved: 099504-63-7761NyuvwpjVpejqmsypwc failure; insufficiency; arrest (adult) (2 sources)Respiratory failure; Translations: [Respiratory failure, unspecified, unspecified whether with hypoxia or hypercapnia]23-76-1698OagsmslbSvretbn on above:Problem List clean-up per request of Phys. EHR CmteSpondylosis; intervertebral disc disorders; other back problems (20 sources)Spondylosis without myelopathy or radiculopathy, lumbar region; Translations: [Other intervertebraldisc degeneration, lumbar region]Onset: 31-86-9334LwfveprVrfnthiftia; intervertebral disc disorders; other back problems (5 sources)Muscle spasm of back; Translations: [Intervertebral disc disorders with radiculopathy, lumbar region]Onset: 043882-02-2306PwxkleslDzrgbwo on above:Problem List clean-up per request of Phys. EHR CmteSubstance-related disorders (20 sources)Smoker; Translations: [Tobacco use disorder]Onset: 83-94-1148Zvdkbny Comment on above:1 pack daily;Unclassified (1 source)LOW BACK PAIN, UNSPECIFIED; Translations: [LOW BACK PAIN, UNSPECIFIED] Onset: 37-20-9301Ynewwmuuyirb (3 sources)CONTACT W/AND (SUSP) EXPOS COVID-19; Translations: [CONTACT W/AND (SUSP) EXPOS COVID-19]Onset: 03-27-0894Tbaklvvojgdb (1 source)Other intervertebral disc degeneration, lumbar region with discogenic back pain only; Translations:[Other intervertebral disc degeneration, lumbar region with discogenic back pain only]Onset: 81-68-8076Oabqpgsagdsb (2 sources)Consult; Translations: [Consult]Onset: 99-35-6895Ijzff infection (1 source)COVID-19; Translations: [COVID-19]Onset: 04-14-2022 Past or Other Problems Problem ClassificationProblemDateDocumented DateEpisodic/ChronicAbdominal hernia (1 source)Left inguinal hernia ; Translations: [Unilateral inguinal hernia, without obstruction or gangrene, not specified as recurrent]45-15-8566Xqwsfhym Administrative/social admission (5 sources)Patient encounter status; Translations: [Persons encountering health services in other specified circumstances]Onset: 297574-39-9750Xyslvdul Cardiac dysrhythmias (20 sources)Sinus bradycardia; Translations: [Other specified cardiac dysrhythmias]Onset: 77-01-3675QbvkutloUjxgxwlhfxagh symptoms and ill-defined conditions (20 sources)Dysuria; Translations: [Dysuria]Onset: 02-06-2024 Resolved: 210193-26-8597DmwbexbgWzscpho on above:Problem List clean-up per request of Phys. EHR CmteInflammatory conditions of male genital organs (20 sources)Prostatitis; Translations: [Inflammatory disease of prostate, unspecified]Onset: 02-06-2024 Resolved: 349989-50-5500FguhjzyhPjjcqkh and fatigue (20 sources)Fatigue; Translations: [Other fatigue]Onset: EpisodicMood disorders (20 sources)Mood disordersOnset: Other aftercare (1 source)Other exterminator termite (current) drug therapy; Translations: [OTH CARE HOME CURRENT DRUG THERAPY]Onset: 37-25-2701VltpvjvoYorjc aftercare (20 sources)Long-term current use of drug therapy; Translations: [Other exterminator termite (current) drug therapy]Onset: 266490-50-2292YixxlygtMnbsr connective tissue disease (1 source)Other muscle spasm; Translations: [OTHER MUSCLE SPASM]Onset: 21-60-8545LccorbkjNzajp connective tissue disease (1 source)Pain in right lower limb; Translations: [Pain in right leg]12-07-2023 EpisodicOther lower respiratory disease (20 sources)Dyspnea; Translations: [Other respiratory abnormalities]Onset: 455842-50-6293TgozyjqlQqata lower respiratory disease (4 sources)Pleurodynia; Translations: [PLEURODYNIA]Onset: 97-56-7216Zytebyrn Other lower respiratory disease (2 sources)Other forms of dyspnea; Translations: [Other forms of dyspnea]Onset: 71-47-1213TqoiakwxLsgdq non-traumatic joint disorders (20 sources)Bilateral chronic pain of upper limbs; Translations: [Pain in right shoulder]Onset: 996071-72-9215CuglkzguEbsbz screening for suspected conditions (not mental disorders or infectious disease) (20 sources)Cardiovascular stress test abnormal; Translations: [Other nonspecific abnormal results of function study of cardiovascular system]Onset: 02-15-2022 Resolved: 864376-35-2081EvkmdsusVvqym upper respiratory disease (20 sources)Polyp of nasal cavity and/or nasal sinus; Translations: [Nasal polyp, unspecified]Onset: 357786-32-8572ZlokimmjAdstfgng codes; unclassified (1 source)Tobacco user; Translations: [Tobacco use]26-93-5545ZfvogoizHuelbwkcq and history of mental health and substance abuse codes (9 sources)Ex-smoker; Translations: [Personal history of nicotine dependence] Onset: 837316-27-7245QzrkfzqeXmnnfecddxmh (1 source)CONTACT W/AND (SUSP) EXPOS COVID-19; Translations: [CONTACT W/AND (SUSP) EXPOS COVID-19]Onset: 52-46-0308Tsflxnxvtqof (18 sources)Onset: 07-13-2023 Resolved: Results Test NameValueInterpretationReference RangeFacilityCardiac Device Check - Remote on 81-34-7153IqzbwvunodKettering Memorial Hospital Work Phone: Radiology Study observation (narrative)[facility] Work Phone: Consulton [id number] Liliana Michaels 1965 M Date Provider Department Center 02/05/2025 [facility] SURG [place] Fl No family history on file Level of Service:38706 [place] OFFICE/OUTPATIENT NEW MODERATE MDM 45 MINUTES Reason for Visit and Comments: Consult [484]NormalUnJoint Township District Memorial HospitalCardiac Device Check - In Clinicon 77-86-4678AsfxlfdlwcSelect Medical Specialty Hospital [facility] Work Phone: Radiology Study observation (narrative)[facility] Work Phone: ECG 12 lead (Clinic Performed)on 15-70-8928PUG performed today shows atrial paced rhythm at rate of 65 bpm QRS duration 106 ms QT corrected 447 ms. Rhythm strip shows the same pattern. [facility] Work Phone: UnSelect Medical Special[facility] Work Phone: aLL CBC WITH AUTO DIFFon 57-61-1562XWVSPEMOH ABSOLUTE AUTO0.1NOMS HealthcareBasophils/100 WBC (Bld)1 %0.2 - [...] review of laboratory resultsAbnormalNOMS Healthcare LYMPHOCYTES ABSOLUTE OMZS7VEYK HealthcareLymphocytes/100 WBC (Bld)22.8 %20.5 - 60.0 %NOMS Wilson HealthMCH (RBC) [Entitic mass]30.7 pg25.9 - 34.0 pgNOMS HealthcareMCHC (RBC) [Mass/Vol]34 g/dL29.9 - 35.2 g/dLNOMS HealthcareMCV (RBC) [Entitic vol]90.3 fL80.0 - 94.0 fLNOMS HealthcareMONOCYTES ABSOLUTE AUTO0.7NOMS HealthcareMonocytes/100 WBC (Bld)7.7 %1.7 - 12.0 %NOMS HealthcareNEUTROPHILS ABSOLUTE AUTO5.6NOMS HealthcareNeutrophils/100 WBC (Bld)64.5 %43.0 - 75.0 %NOMS HealthcarePlatelet mean volume (Bld) [Entitic vol]10.3 fL9.5 - 13.5 fLNOMS HealthcareTBH EO #0.3NOMS HealthcareTBH [id number] HealthcareTBH RBC5.25NOMS HealthcareTBH WBC8.7NOMS HealthcareCLINISYNCNOMS HealthcareCardiac Device Check - Remoteon 71-39-5666GvtxepzpjzSelect Medical Specialty Hospital [facility] Work Phone: Radiology Study observation (narrative)[facility] Work Phone: CT LUNG SCREENING LOW DOSEon 29-72-[address] [address] [address] Scan Report Signed Patient: LILIANA MICHAELS MR#: [id number] : 1965 Acct:[id number] Age/Sex: 59 / M ADM Date: 08/09/24 Loc: CT Attending Dr: Amina Cassidy D.O. Ordering Physician: Amina Cassidy D.O. Date of Service: 08/09/24 Procedure(s): CT lung screening low-dose Accession Number(s): [id number] cc: Ishmael Simon M.D. [address] [address] Patient Name: LILIANA MICHAELS MRN: [facility]:[id number] date: 1965 Sex: M Assigned Patient Location: CT Current Patient Location: CT Accession/Order Number: [id number] Exam Date: 08/09/2024 08:33 Report Date: 08/09/2024 [...] Candida Wright M.D.08/09/2024 8:45 AM Dictation Location: [place] [address] Electronically authenticated by: [id number] Y Date: 08/09/2024 08:45 Dictated By: Candida Wright M.D. Signed By: 08/09/24 0848 DD/ 0845 TD/TT: Precinct Police Captain:TBHRadiology, Radiologist, - 08/09/2024 [place] [address] CT Scan Report Signed Patient: LILIANA MICHAELS MR#: [id number] : 1965 Acct:[id number] Age/Sex: 59 / M ADM Date: 08/09/24 Loc: CT Attending Dr: Amina Cassidy D.O. Ordering Physician: Amina Cassidy D.O. Date of Service: 08/09/24 Procedure(s): CT lung screening low-dose Accession Number(s): [id number] cc: Ishmael Simon M.D. [place] [address] Patient Name: LILIANA MICHAELS MRN: [facility]:[id number] date: 1965 Sex: M Assigned Patient Location: CT Current Patient Location: CT Accession/Order Number: [id number] Exam Date: 08/09/2024 08:33 Report Date: 08/09/2024 [...] Candida Wright M.D.08/09/2024 8:45 AM Dictation Location: [place] [address] Electronically authenticated by: [id number] Y Date: 08/09/2024 08:45 Dictated By: Candida Wright M.D. Signed By: 08/09/24847 DD/ 4 TD/TT: Precinct Police Captain: [facility] HealthcareRadiology Study observation (narrative)[facility] HealthcareCT LUNG SCREENING LOW DOSEOrdered By: Radiologist Radiology on 64-62-7074CB[facility] Work Phone: aLL BASIC METABOLIC PANELon 74-10-3033Vvatk gap [Moles/Vol]13 mmol/LNOMS HealthcareCalcium [Mass/Vol]9.2 mg/dL8.5 - 10.1 mg/dL NOMS HealthcareChloride [Moles/Vol]100 mmol/L98 - 107 mmol/LNOMS HealthcareCO2 [Moles/Vol]29.3 mmol/L21.0 - 32.0 mmol/LNOMS HealthcareCreatinine [Mass/Vol]1.2 mg/dL0.70 - 1.30 mg/dLNOGA HealthcareGFR/1.73 sq M.predicted CKD-EPI (S/P/Bld) [Vol rate/Area]>60>=60 mL/min/1.73m 2NOMS HealthcareGlucose [Mass/Vol]118 mg/dL High74 - 106 mg/dLNOGA HealthcarePotassium [Moles/Vol]4.3 mmol/L3.5 - 5.1 mmol/L NOMS HealthcareSodium [Moles/Vol]138 mmol/L136 - 145 mmol/LNOMS HealthcareTBH EGFR-NON AF [place]ER>60>=60 mL/min/1.73m 2NOMS HealthcareUrea nitrogen [Mass/Vol]18 mg/dL7.0 - 18.0 mg/dLNOGA HealthcareUrea nitrogen/Creatinine [Mass ratio]15 mg/mgNOGA HealthcareALL LIPID PROFILE (FASTING)on 31-01-4187JBBS HDL RATIO5.8NOGA HealthcareComment on above:3.3 - 4.4 LOW RISK 4.4 - 7.1 AVERAGE RISK 7.1 - 11.0 MODERATE RISK >11.0 HIGH RISK Cholesterol [Mass/Vol]265 mg/dLHighNINF - 200 mg/dLNOGA HealthcareCholesterol in HDL [Mass/Vol]46 mg/dL40 - 60 mg/dLNOMS HealthcareComment on above:> or =60 mg/dl - LOW CARDIOVASCULAR RISK <40 mg/dl - HIGH CARDIOVASCULAR RISK Magnesium [Mass/Vol]159 mg/dLNOMS HealthcareComment on above:<100 mg/dl OPTIMAL 100-129 mg/dl NEAR OR ABOVE OPTIMAL 130-159 mg/dl BORDERLINE HIGH 160-189 mg/dl HIGH >190 mg/dl VERY HIGH Magnesium [Mass/Vol]60.6 mg/dLNOMS HealthcareTriglyceride [Mass/Vol]303 mg/dL HighNINF - 150 mg/dLNOMS HealthcareCCF Mario 30-90-1933GHI [Catalytic activity/Vol]36 U/L16 - 63 U/LNOMS HealthcareCCF Isaura 94-37-6358ONO [Catalytic activity/Vol]U/LLow15 - 37 U/LNOMS HealthcareNo Panel Informationon 06-14-2024 Interpretation and review of laboratory resultsAbnormalNOMS HealthcareCLINISYNC NOMS HealthcareEPITHELIAL CELLSon 69-82-4146Ulrweyvdgd cells LM Ql (Urine sed) Epithelial Cells Few NOMS HealthcareNo Panel Informationon 43-98-9885ELEYBKQWKQYTC HealthcareRESULT 1 on 81-74-1738HTMAHM 1 Result 1 Moderate number of gram positive cocci. NOMS HealthcareRESULT 2on 81-24-5595IHJBXF 2 Result 2 Few gram negative rods. NOMS HealthcareRESULT 3on 58-58-4330JRJAEM 3 Result 3 VENDING MECHANIC NOMS HealthcareRESULT 4on 53-83-2523CIZHJV 4 Result 4 VENDING MECHANIC NOMS HealthcareWHITE BLOOD CELLSon 75-60-3472UWBWP BLOOD CELLS White Blood Cells NOMS HealthcareWHITE BLOOD CELLSFewNOGA HealthcareCardiac Device Check - In Clinicon 46-57-5928TftuqfzapqSelect Medical Specialty Hospital [facility] Work Phone: Radiology Study observation (narrative)[facility] Work Phone: ECG 12 lead (Clinic Performed)on 59-97-6429LIS performed today shows atrial paced rhythm at rate of 74 bpm QRS ration 100 ms QT corrected 448 ms. Rhythm strip shows the same pattern.[facility] Work Phone: UnSelect [facility] Work Phone: MLR HEMOGLOBIN A1Con 59-96-1716Nptsopa [Mass/Vol]131 mg/dLChildren's Mercy HospitalHbA1c (Bld) [Mass fraction]6.2 %4.5 - 6.2 %[facility] Comment on above:ADA RECOMMENDED LIMIT 4.0 - 6.0 ADA THERAPEUTIC TARGET < 7.0 ACTION SUGGESTED > 7.0 CLINISYNCChildren's Mercy HospitalMagnetic resonance imaging reportOrdered By: Germán Murphy on 26-02-9435Kmzsa reportRIVERVIEW HEALTH INSTITUTE Main [place] [address] [place] [address] MRI Report Signed Patient: Liliana Michaels JR MR#: [id number] : 1965 Acct:[id number] Age/Sex: 59 / M ADM Date: 4 Loc: MR Room: Type: [facility] Attending Dr: Danielle GAYTAN Copies to: LUKAS Burns~ Ordering Provider: LUKAS Burns Date of Service: 03/27/24 MR/MR lumbar spine wo con: LUMBAR DDD ([id number]) XR/XR pre/post mri xray: LUMBAR DDD MRI [...] Murphy Jr., D.O.03/27/2024 11:57 AM Dictation Location: [place] [address] Transcribed By: [facility] 03/27/24 1157 Dictated By: Germán Murphy Jr, DO 03/27/24 1148 Signed By: 03/27/24 1157 [facility] HospitalXR pre/post mri xrayon 85-75-2107UM pre/post mri xrayRIVERVIEW HEALTH INSTITUTE [place] [address] [place] [address] MRI Report Signed Patient: Liliana Michaels JR MR#: [id number] : 1965 Acct:[id number] Age/Sex: 59 / M ADM Date: 03/27/24 Loc: MR Room: Type: [facility] Attending Dr: Danielle GAYTAN Copies to: LUKAS Burns Ordering Provider: LUKAS Burns Date of Service: 03/27/24 MR/MR lumbar spine wo con: LUMBAR DDD ([id number]) XR/XR pre/post mri xray: LUMBAR DDD MRI [...] Murphy Jr., D.OAtiya03/27/2024 11:57 AM Dictation Location: [place] [address] Transcribed By: [facility] 03/27/24 1157 Dictated By: Germán Murphy Jr, DO 03/27/24 1148 Signed By: 03/27/24 1157[facility] Physician GroupXR chest 2V*on 53-51-5223UD chest 2V*[facility] Main [place] [id number] XRay Report Signed Patient: Liliana Michaels JR MR#: [id number] : 1965 Acct:[id number] Age/Sex: 59 / M ADM Date: 03/16/24 Loc: [facility] Room: Type: [facility] Attending Dr: Danielle GAYTAN Copies to: [...] Elia Rodrigez M.D.03/16/2024 8:54 AM Dictation Location: [facility]--16 Transcribed By: [facility] 03/16/24 0854 Dictated By: Elia Rodrigez DO 03/16/24 0849 Signed By: 03/16/24 0854[facility] Physician GroupCardiac Device Check - Remoteon 63-32-0389BfugptjuutSelect Medical Specialty Hospital - Trumbull Work Phone: Radiology Study observation (narrative)[facility] Work Phone: TB UA (CLEAN/CATCH) MICROSCOPIC IF INDICATEon 63-80-8229TJWWWTFXD URINENegativeNEGATIVENOMS HealthcareBLOOD URINETRACE-I NEGATIVENOMS HealthcareClarity (U)SL CLOUDYCLEARNOMS HealthcareColor (U)LT. YELLOWYELLOWNOMS HealthcareGLUCOSE URINE UANegativeNEGATIVE mg/dLNOMS Healthcare Interpretation and review of laboratory resultsAbnormalNOMS HealthcareKetones Ql (U)NegativeNEGATIVE mg/dLNOMS HealthcareLeukocyte esterase Test strip Ql (U) LARGEAbnormalNEGATIVENOMS HealthcareNITRITE URINENegativeNEGATIVENOMS Healthcare pH (U)6.0 [pH]5.0 - 9.0NOGA HealthcarePROTEIN URINENegativeNEG/TRACE mg/dLNOGA HealthcareSPECIFIC GRAVITY URINE1.0151.005 - 1.025NOGA HealthcareURINE MICROSCOPIC INDICATEDYESNOGA HealthcareUROBILINOGEN URINE0.2 EU/dL0.2 - 1.0 EU/dLNOGA HealthcareCLINISYNCNOMS HealthcareXR CHEST 2 VIEWS VINCENZO/Pal 11-10-2023 Report to [facility] registration on 11/09/2023 at 8:30 AM for chest x-ray and device check prior to appointment with Dr. Son at 10 AM Interpreted By: Sancho Gross, STUDY: XR CHEST 2 VIEWS; 11/09/2023 9:46 am INDICATION: Signs/Symptoms:Pacemaker. COMPARISON: 08/05/2023 ACCESSION NUMBER(S): [id number] ORDERING CLINICIAN: ANA M KUMARI FINDINGS: Left-sided pacemaker in place. CARDIOMEDIASTINAL SILHOUETTE: Cardiomediastinal silhouette is normal in size and configuration. LUNGS: Lungs are clear. ABDOMEN: No remarkable upper abdominal findings. BONES: No acute osseous changes. IMPRESSION: 1. No evidence of acute cardiopulmonary process. MACRO: None Signed by: Sancho Gross 11/10/2023 8:35 AM Dictation workstation: [id number], Radiologist, - 11/10/2023 Report to [facility] registration on 11/09/2023 at 8:30 AM for chest x-ray and device check prior to appointment with Dr. Son at 10 AM Interpreted By: Sancho Gross, STUDY: XR CHEST 2 VIEWS; 11/09/2023 9:46 am INDICATION: Signs/Symptoms:Pacemaker. COMPARISON: 08/05/2023 ACCESSION NUMBER(S): [id number] ORDERING CLINICIAN: ANA M KUMARI FINDINGS: Left-sided pacemaker in place. CARDIOMEDIASTINAL SILHOUETTE: Cardiomediastinal silhouette is normal in size and configuration. LUNGS: Lungs are clear. ABDOMEN: No remarkable upper abdominal findings. BONES: No acute osseous changes. IMPRESSION: 1. No evidence of acute cardiopulmonary process. MACRO: None Signed by: Sancho Gross 11/10/2023 8:35 AM Dictation workstation: [id number] NOMS HealthcareXR CHEST 2 VIEWS PA/LATOrdered By: Radiologist Radiology on 56-36-6435GXJE [employer] Work Phone: XR CHEST 2 VIEWS PA/LATon 93-39-3733Kykhfdskw Study observation (narrative)NOMS HealthcareXR Shoulder - bilateral 2 View[place] 14-16[place] [address] XRay Report Signed Patient: LILIANA MICHAELS MR#: [id number] : 1965 Acct:[id number] Age/Sex: 58 / M ADM Date: 10/10/23 Loc: LAB Attending Dr: Ishmael Simon M.D. Ordering Physician: Ishmael Simon M.D. Date of Service: 10/10/23 Procedure(s): XR shoulder KRISTOPHER min 2V Accession Number(s): [id number] cc: Ishmael Simon M.D. [place] [address] Patient Name: LILIANA MICHAELS MRN: [facility]:[id number] date: 1965 Sex: M Assigned Patient Location: LAB Current Patient Location: Accession/Order Number: [id number] Exam Date: 10/10/2023 12:45 Report Date: 10/11/2023 [...] Signed By: 10/11/23 1137 DD/ 1134 TD/TT: Precinct Police Captain:TBHRadiology, Radiologist, MD - 10/11/2023 [place] [address] XRay Report Signed Patient: LILIANA MICHAELS MR#: [id number] : 1965 Acct:[id number] Age/Sex: 58 / M ADM Date: 10/10/23 Loc: LAB Attending Dr: Ishmael Simon M.D. Ordering Physician: Ishmael Simon M.D. Date of Service: 10/10/23 Procedure(s): XR shoulder KRISTOPHER min 2V Accession Number(s): [id number] cc: Ishmael Simon M.D. [place] [address] Patient Name: LILIANA MICHAELS MRN: [id number] date: 1965 Sex: M Assigned Patient Location: LAB Current Patient Location: Accession/Order Number: [id number] Exam Date: 10/10/2023 12:45 Report Date: 10/11/2023 [...] Signed By: 10/11/23 1137 DD/ 1134 TD/TT: Precinct Police Captain: NOMFransico HealthcareRadiology Study observation (narrative)NOMS HealthcareXR Shoulder - bilateral 2 ViewsOrdered By: Radiologist Radiology on 89-59-3814PTJLChildren's Mercy Hospital Work Phone: cardiac Device Check - Remoteon 08-96-7289OvanczntgoSelect Medical Specialty Hospital - Trumbull Work Phone: Radiology Study observation (narrative)[facility] Work Phone: US.doppler Upper extremity vein - lefton 08-10-2023 Exam negative for acute deep venous thrombosis in the left upper extremity MACRO: None Signed by: Simone Ramos 08/10/2023 3:07 PM Dictation workstation: [id number] By: Simone Ramos, STUDY: [facility] US UPPER EXTREMITY VENOUS DUPLEX LEFT; 08/10/2023 2:47 pm INDICATION: Signs/Symptoms: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 COMPARISON: Portable chest 05 August 2023 ACCESSION NUMBER(S): [id number] ORDERING CLINICIAN: NAIMA WRIGHT TECHNIQUE: Vascular ultrasound [...] - 08/10/2023 Interpreted By: Simone Ramos, STUDY: [facility] US UPPER EXTREMITY VENOUS DUPLEX LEFT; 08/10/2023 2:47 pm INDICATION: Signs/Symptoms: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 COMPARISON: Portable chest 05 August 2023 ACCESSION NUMBER(S): [id number] ORDERING CLINICIAN: NAIMA WRIGHT TECHNIQUE: Vascular ultrasound [...] Simone Ramos 08/10/2023 3:07 PM Dictation workstation: [id number] [facility] Work Phone: Interpreted By: Simone Ramos, STUDY: [facility] US UPPER EXTREMITY VENOUS DUPLEX LEFT; 08/10/2023 2:47 pm INDICATION: Signs/Symptoms: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 COMPARISON: Portable chest 05 August 2023 ACCESSION NUMBER(S): [id number] ORDERING CLINICIAN: NAIMA WRIGHT TECHNIQUE: Vascular ultrasound [...] Simone Ramos 08/10/2023 3:07 PM Dictation workstation: [id number], Radiologist, - 08/10/2023 Interpreted By: Simone Ramos, STUDY: [facility] US UPPER EXTREMITY VENOUS DUPLEX LEFT; 08/10/2023 2:47 pm INDICATION: Signs/Symptoms: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 COMPARISON: Portable chest 05 August 2023 ACCESSION NUMBER(S): [id number] ORDERING CLINICIAN: NAIMA WRIGHT TECHNIQUE: Vascular ultrasound [...] Simone Ramos 08/10/2023 3:07 PM Dictation workstation: [id number] [facility] Mercy HospitalRadiology Study observation (narrative)[facility] Work Phone: Radiology Study observation (narrative)[facility] US.doppler Upper extremity vein - leftOrdered By: Simone Ramos on 08-10-2023 [facility] Work Phone: US.doppler Upper extremity vein - leftOrdered By: Radiologist Radiology on 37-40-5868RRKHChildren's Mercy Hospital Work Phone: basic metabolic 2000 panelon 02-01-9912Cuoqz gap [Moles/Vol]12 mmol/L10 - 20 mmol/[facility] Hospital for RehabilitationCalcium [Mass/Vol]9.6 mg/dL8.6 - 10.3 mg/dLKettering Memorial HospitalChloride [Moles/Vol]102 mmol/L98 - 107 mmol/[facility] for RehabilitationCO2 [Moles/Vol]29 mmol/L21 - 32 mmol/[facility] for RehabilitationCreatinine [Mass/Vol]1.12 mg/dL0.50 - 1.30 mg/dLUnSelect Medical Specialty Hospital - TrumbullGFR/1.73 sq M.predicted among non-blacks MDRD (S/P/Bld) [Vol rate/Area]76 mL/min/{1.73_m2}- PINFUniBlanchard Valley Health System Bluffton HospitalComment on above: Calculations of estimated GFR are performed using the 2020 CKD-EPI Study Refit equation without therace variable for the IDMS-Traceable creatinine methods. https://jasn.asnjournals.org/content//ASN.2427521296 Glucose [Mass/Vol]95 mg/dL74 - 99 mg/dLUnSelect Medical Specialty Hospital [facility]umbull Interpretation and review of laboratory resultsNoMartins Ferry HospitalPotassium [Moles/Vol]4.0 mmol/L3.5 - 5.3 mmol/[facility] for RehabilitationSodium [Moles/Vol]139 mmol/L136 - 145 mmol/[facility] for RehabilitationUrea nitrogen [Mass/Vol]17 mg/dL6 - 23 mg/dLUnSelect Medical Specialty Hospital - TrumbullUnSelect Medical Specialty Hospital - TrumbullCBC panel Auto (Bld)on 08-05-2023 Erythrocyte distribution width (RBC) [Ratio]13.0 %11.5 - 14.5 %[facility] HospitalHematocrit (Bld) [Volume fraction]46.9 %41.0 - 52.0 % [facility] HospitalHemoglobin (Bld) [Mass/Vol]16.1 g/dL13.5 - 17.5 g/dLUnSelect Medical Specialty Hospital - TrumbullInterpretation and review of laboratory resultsNoOhioHealth Arthur G.H. Bing, MD, Cancer CenterH (RBC) [Entitic mass]31.5 pg 26.0 - 34.0 pgUnSelect Medical Specialty Hospital - TrumbullMCHC (RBC) [Mass/Vol]34.3 g/dL 32.0 - 36.0 g/dLUnSelect Medical Specialty Hospital - TrumbullMCV (RBC) [Entitic vol]92 fL80 - 100 fLUniBlanchard Valley Health System Bluffton HospitalNucleated RBC/100 WBC (Bld) [Ratio]0.0 %[facility] HospitalPlatelets (Bld) [#/Vol]279 10*3/Martins Ferry HospitalRBC (Bld) [#/Vol]5.11 10*6/[facility] Ferry HospitalWBC (Bld) [#/Vol]8.9 10*3/[facility] Ferry HospitalUnSelect Medical Specialty Hospital - TrumbullElectrophysiology studyon 61-40-7586KhsspwngqxSelect Medical Specialty Hospital - Trumbull Work Phone: PT and aPTT panel Coag (PPP)on 57-89-7237cKLO Coag (PPP) [Time]34 [facility] CenterINR Coag (PPP) [Relative time] 1.0 {INR}0.9 - 1.1[facility] HospitalInterpretation and review of laboratory resultsNormalUniversMorgan Hospital & Medical CenterPT Coag (PPP) [Time] 11.0 [facility] Medical CenterThe APTT is no longer used for monitoring Unfractionated Heparin Therapy. For monitoring Heparin Therapy, use the Heparin Assay.[facility] HospitalUnSelect Medical Specialty Hospital - TrumbullUS Heart TransthoracicOrdered By: Batsheva Morris on 50-66-8398Rvupyr Valve Area by Continuity of Peak Velocity2.42 nm0ZynodyxkomKettering Memorial Hospital Work Phone: Aortic Valve Area by Continuity of VTI2.62 cm2 [facility] Work Phone: AV mn grad4.0mmHgK[facility] Hospital Work Phone: [phone] pk grad8.2mmHgK[facility]tering [facility] Hospital Work Phone: [phone] pk vel1.43 m/[facility] Work Phone: LA vol index A/L29.3 ml/r0HcxfppudnsSelect Medical Specialty Hospital - Trumbull Work Phone: LV A4C EF62.4[facility] Work Phone: LV biplane EF60 %[facility] Work Phone: LVIDd5.28 cmUnSelect Medical Specialty Hospital - Trumbull Work Phone: LVOT diam2.00 cmKettering Memorial Hospital Work Phone: MV avg E/e' ratio7.78UnSelect Medical Specialty Hospital [facility] Work Phone: [phone] E/A ratio0.88UnSelect Medical Special[facility] Work Phone: RV free wall pk S'15.40 cm/sUnSelect Medical Specialty Hospital - [facility]umbull Work Phone: RVSP23.4mmHgUnSelect Medical Specialty Hospital - Trumbull Work Phone: Tricuspid annular plane systolic excursion3.6 cm [facility] Work Phone: UnSelect Medical Specialty Hospital - [facility]umbull Work Phone: US Heart Transthoracicon 08-05-2023 [place] [id number] TRANSTHORACIC ECHOCARDIOGRAM REPORT Patient Name: LILIANA MICHAELS Reading Physician: [id number] Batsheva Morris MD, [facility] Study Date: 08/05/2023 Ordering Provider: [id number] ANA M ANGEL MRN/PID: [id number] Fellow: Nurse: Date of /Age: 10 1965 / 58 Winter Sports Manager: Eli Pisano RDCS Gender: M Additional Staff: Height: 162.56 cm Admit Date: Weight: 90.72 kg Admission Status: Outpatient BSA / BMI: 1.96 m2 / 34.33 Department Location: [place] [address] Echo Lab Blood Pressure: 128 /73 mmHg Study Type: TRANSTHORACIC ECHO (TTE) COMPLETE Diagnosis/ICD: Bradycardia, unspecified-R00.1 Indication: Abnormal EKG, Pre-EP CPT Codes: Echo Complete w Full Doppler-99559 Study Detail: The following Echo studies were [...] LA Area A2C: 18.9 cm2 [place] A4C: 5.8 cm [place] A2C: 5.5 cm LA Volume Index: 27.0 [...] content not included)...Batsheva Dotson MD - 08/05/2023 [place] [address] TRANSTHORACIC ECHOCARDIOGRAM REPORT Patient Name: LILIANA MICHAELS Reading Physician: [id number] Batsheva Morris MD, [facility] Study Date: 08/05/2023 Ordering Provider: [id number] ANA M ANGEL MRN/PID: [id number] Fellow: Nurse: Date of /Age: 10 1965 Winter Sports Manager: Eli Pisano CS Gender: M Additional Staff: Height: 162.56 cm Admit Date: Weight: 90.72 kg Admission Status: Outpatient BSA / BMI: 1.96 m2 / 34.33 Department Location: [facility]/m2 Echo Lab Blood Pressure: 128 /73 mmHg Study Type: TRANSTHORACIC ECHO (TTE) COMPLETE Diagnosis/ICD: Bradycardia, unspecified-R00.1 Indication: Abnormal EKG, Pre-EP CPT Codes: Echo Complete w Full Doppler-06174 Study Detail: The following Echo studies were [...] LA Area A2C: 18.9 cm2 [place] A4C: 5.8 cm [place] A2C: 5.5 cm LA Volume Index: 27.0 [...] 1.3 m/s (0.6-0.9m/s) PV Max P.6 mmHg [id number] Batsheva Morris MD, [facility] Electronically signed on 08/05/2023 at 2:30:14 PM Final [facility] Work Phone: xr Chest Single viewon 07-20-0028Wgkkos post pacemaker placement. Signed by: Salvatore Clark 08/05/2023 6:10 PM Dictation workstation: [id number] By: Salvatore Clark, STUDY: XR CHEST 1 VIEW INDICATION: Signs/Symptoms:post implant. COMPARISON: None ACCESSION NUMBER(S): [id number] ORDERING CLINICIAN: ANA M KUMARI FINDINGS: No consolidation, effusion, edema, or pneumothorax. Pacemaker placed without pneumothorax. Position satisfactory. MMSalvatore Warren MD - 08/05/2023 Interpreted By: Salvatore Clark, STUDY: XR CHEST 1 VIEW INDICATION: Signs/Symptoms:post implant. COMPARISON: None ACCESSION NUMBER(S): [id number] ORDERING CLINICIAN: ANA M KUMARI FINDINGS: No consolidation, effusion, edema, or pneumothorax. Pacemaker placed without pneumothorax. Position satisfactory. IMPRESSION: Status post pacemaker placement. Signed by: Salvatore Clark 08/05/2023 6:10 PM Dictation workstation: [id number] [facility] Work Phone: Radiology Study observation (narrative)[facility] Work Phone: xr Chest Single viewOrdered By: Salvatore Clark on 16-18-4469ZuunwtzjerSelect Medical Specialty Hospital - Trumbull Work Phone: ecg 12 lead (Clinic Performed)on 96-56-6919AWR shows marked sinus bradycardia rate of 41 bpm QRS ration 100 ms QT corrected he had a 91 ms. Rhythm strip shows the same pattern.CPACSUnSelect Medical Specialty Hospital - Trumbull Work Phone: CT LUNG CANCER SCREENINGon 48-09-1005MJ LUNG CANCER SCREENINGEXAMINATION: CT LUNG CANCER SCREENING [...] Electronically authenticated by: BATSHEVA ALVARADO Date: 2022-07-15 12:[address] [place], [place] [address]Office Visit (Cardiology)on 30-70-1081Oswlxn-up visit Diagnoses/Problems Assessed Sinus bradycardia (427.89) (R00.1) [...] we can help. You may also call [phone]-IKSSMerchant ExchangeNOW for free resources and assistance.; Status:Complete - [...] ischemic evaluation. He underwent cardiac catheterization in [place] which showed no significant obstructive disease 3. [...] BY MOUTH FOUR TIMES A DAY NEEDED Cihqyu2v at bedtime Singulair 10 MG Oral TabletTAKE [...] Recorded: 14Jul2022 10:57AM Heart Rate34, L Radial Ixvwuaho203, LUE, Sitting Jwrceunoy30, LUE, Sitting Height5 ft 4 in Sqeouu896 lb BMI Djlpjyqglg82.96 kg/m2 BSA Calculated1.92 Tobacco Usea) Yes Patient encouraged to st (more content not included)...NormalUH Touchworks Tobacco Screening.on 49-95-2678Vaqpy depression screening assessmentNoEastern State Hospital CarePoint HealthSainte Genevieve County Memorial HospitalMarmoraiPrint DO Work Phone: Fall risk assessmenta) No falls within the last year [facility] Care[facility] HealthThe [facility] NetLex DO Work Phone: Tobacco use status CPHSa) YesEastern State Hospital CarePoint HealthVeterans [facility] NetLex DO Work Phone: Tobacco Screening.YesSt. Francis [facility] NetLex DO Work Phone: CT ABD/PELV W CONon 41-79-1647NA ABD/PELV W CON EXAMINATION: CT ABD/PELV W [...] authenticated by: FLEX JACOBS Date: 2022-06-11 10:06[facility] AUTO DIFFon 07-55-8860HOVR #0.1 103/ulNormal0.0-0.1The Newark HospitalComment on above:Performed By: #### CBC #### [facility] [address] [address] [address] MendozaBasophils/100 WBC (Bld)1.6 %Normal0.2-2.0The [facility] Comment on above:Performed By: #### CBC #### [facility] [address] [place] [address] Dr. Britt Kent #0.2 103/ulNormal0.0-0.7The [facility] HospitalComment on above: Performed By: #### CBC #### [facility] [address] [address] [address] Britt Sueosinophils/100 WBC (Bld)3.0 %Normal0.9-7.0[facility] Comment on above:Performed By: #### CBC #### [facility] [address] [address] [address] Britt Suerythrocyte distribution width (RBC) [Ratio]12.4 %Mwravh80.0-15.0 The [facility] HospitalComment on above:Performed By: #### CBC #### [facility] [address] [address] [address] Britt MendozaHematocrit (Bld) [Volume fraction]43.2 %Cxrcot90.0-54.0The [facility] HospitalComment on above:Performed By: #### CBC #### [facility] [address] [address] [address] Britt MendozaHemoglobin (Bld) [Mass/Vol]14.7 g/rUWmgoad66.0-18.0The [facility] HospitalComment on above:Performed By: #### CBC #### [facility] [address] [address] [address] Britt Esposito #0.11 10e3/ulCritically high0.00-0.03The [facility] Comment on above:Performed By: #### CBC #### [facility] [address] [address] [address] Britt Esposito %1.4 %Critically high0.0-0.5The Killdeer HospitalComment on above:Performed By: #### CBC #### [facility] [address] [address] [address] Britt Meyer #1.7 103/ulNormal1.2-3.8The [facility] HospitalComment on above:Performed By: #### CBC #### [facility] [address] [place] [address] Dr. Britt Sebastianhocytes/100 WBC (Bld)21.6 %Wolbkb78.5-60.0Samaritan HospitalComment on above:Performed By: #### CBC #### [facility] [address] [address] [address] Britt HernandezUAL DIFF REQNONormalThe Newark HospitalComment on above: Performed By: #### CBC #### [facility] [address] [place] [address] Dr. Britt Johns (RBC) [Entitic mass]31.2 xgXosuwy41.9-34.0The [facility] HospitalComment on above:Performed By: #### CBC #### [facility] [address] [place] [address] Dr. Britt Johns (RBC) [Mass/Vol]34.0 g/lPTnmkta29.9-35.2The [facility] HospitalComment on above:Performed By: #### CBC #### [facility] [address] [place] [address] Dr. Britt Johns (RBC) [Entitic vol]91.7 iSTwkcfj68.0-94.0The [facility] HospitalComment on above:Performed By: #### CBC #### [facility] [address] [address] [address] Britt Ba #0.5 103/ulNormal0.3-0.8The [facility] HospitalComment on above:Performed By: #### CBC #### [facility] [address] [place] [address] Dr. Britt Rodriguezocytes/100 WBC (Bld)6.8 %Normal1.7-12.0[facility] Comment on above:Performed By: #### CBC #### [facility] [address] [place] [address] Dr. Britt Nichols #5.0 103/ulNormal1.4-6.5The [facility] HospitalComment on above:Performed By: #### CBC #### [facility] [address] [place] [address] Dr. Britt Carrilloutrophils/100 WBC (Bld)65.6 %Rttzwk07.0-75.0The [facility] HospitalComment on above:Performed By: #### CBC #### [facility] [address] [place] [address] Dr. Britt Pierce mean volume (Bld) [Entitic vol]9.7 fLNormal9.5-13.5The [facility] HospitalComment on above:Performed By: #### CBC #### [facility] [address] [place] [address] Dr. Britt WuT244 103/tnXexpat576-209Ysr Newark HospitalComment on above: Performed By: #### CBC #### [facility] [address] [place] [address] Dr. Britt MendozaRBC4.71 106/ulNormal4.70-6.10The [facility] HospitalComment on above:Performed By: #### CBC #### [facility] [address] [place] [address] Dr. Britt MendozaWBC7.6 103/ulNormal4.0-11.0The [facility] HospitalComment on above: Performed By: #### CBC #### [facility] [address] [address] [address] Britt MendozaGLYCOHEMOGLOBIN A1Con 52-70-2874HGM RECOMMENDATIONSEE BELOWBarberton Citizens HospitalComment on above:Result Comment: ADA RECOMMENDED LIMIT 4.0 - 6.0 ADA THERAPEUTIC TARGET < 7.0 ACTION SUGGESTED > 7.0Performed By: #### A1C ####[facility] [address] [address]DrAtiya MendozaGlucose [Mass/Vol]117 mg/dLNoCommunity Regional Medical CenterComment on above:Performed By: #### A1C ####[facility] [address] [address]Dr.Yilan MendozaHbA1c (Bld) [Mass fraction]5.7 %Normal 4.5-6.2The [facility] HospitalComment on above:Performed By: #### A1C ####[facility] [address] [place], [place] [address]Dr.Yilan MendozaLIPID PROFILEon 43-73-5010HYPD-HDL RATIO NORMSEE [facility] Comment on above:Result Comment: 3.3 - 4.4 LOW RISK 4.4 - 7.1 AVERAGE RISK 7.1 - 11.0 MODERATE RISK >11.0 HIGH RISKPerformed By: #### BMP, LIVER, LIPID, TSH ####[facility] [address] [address]DrAtiya MendozaCholesterol [Mass/Vol]235 mg/dLCritically high<=200The [facility] HospitalComtrinity health shelby hospital on above:Performed By: #### BMP, LIVER, LIPID, TSH ####[facility] [address] [address]DrAtiya Mendoza Cholesterol in HDL [Mass/Vol]40 mg/zHKijxcl34-45BcwSamaritan HospitalComtrinity health shelby hospital on above:Performed By: #### BMP, LIVER, LIPID, TSH ####[facility] [address] [place], [place] [address]Dr. Yilan ChangCholesterol in LDL [Mass/Vol]156.8 mg/dLOhio State East HospitalComment on above:Performed By: #### BMP, LIVER, LIPID, TSH ####[facility] [address] [address]Dr. Anjalilan ChangCholesterol.total/Cholesterol in HDL [Mass ratio]5.9 {ratio}NormalSamaritan HospitalComment on above:Performed By: #### BMP, LIVER, LIPID, TSH ####[facility] [address] [address]Dr. Yilan ChangHDL NORMAL> or = 60 mg/dl - LOW CARDIOVASCULAR RISK <40 mg/dl - HIGH CARDIOVASCULAR RISKOhio State East HospitalComment on above:Performed By: #### BMP, LIVER, LIPID, TSH ####[facility] [address] [address]Dr. Yilan ChangLDL CALC NORMALSEE BELOWNoCommunity Regional Medical CenterComment on above:Result Comment: <100 mg/dl OPTIMAL 100 - 129 mg/dl NEAR OR ABOVE OPTIMAL 130 - 159 mg/dl BORDERLINE HIGH 160 - 189 mg/dl HIGH >190 mg/dl VERY HIGHPerformed By: #### BMP, LIVER, LIPID, TSH ####[facility] [address] [address]Dr. Anjalilan ChangTriglyceride [Mass/Vol]191 mg/dLCritically high<=150[facility] on above:Performed By: #### BMP, LIVER, LIPID, TSH ####[facility] [address] [address]Dr. Anjalilan ChangVLDL CALC38.2 mg/dLNoCommunity Regional Medical CenterComment on above: Performed By: #### BMP, LIVER, LIPID, TSH ####[facility] [address] [address]Dr. Anjalilan ChangLIVER PROFILEon 05-07-2022 Albumin [Mass/Vol]3.6 g/dLNormal3.4-5.0The [facility] HospitalComment on above: Performed By: #### BMP, LIVER, LIPID, TSH ####[facility] [address] [address]Dr. Yilan ChangAlbumin/Globulin [Mass ratio] 1.1 {ratio}NormalThe [facility] HospitalComment on above:Performed By: #### BMP, LIVER, LIPID, TSH ####[facility] [address] [address]Dr. Yilan ChangALP [Catalytic activity/Vol]84 U/ZNnwkrk46-014Doy [facility] HospitalComment on above:Performed By: #### BMP, LIVER, LIPID, TSH ####[facility] [address] [address]Dr. Yilan ChangALT [Catalytic activity/Vol]34 U/HIwrrkp59-37Nbh [facility] Comment on above:Performed By: #### BMP, LIVER, LIPID, TSH ####[facility] [address] [place], [place] [address]Dr. Yilan ChangAST [Catalytic activity/Vol]21 U/MMwowec00-81Fgn [facility] HospitalComment on above:Performed By: #### BMP, LIVER, LIPID, TSH ####[facility] [address] [place], [place] [address]Dr. Yilan ChangBILI, CONJUGATED0.1 mg/dLNormal0.0-0.2 The [facility] Hospital Cleveland Westment on above:Performed By: #### BMP, LIVER, LIPID, TSH ####[facility] [address] [address]Dr. Yilan ChangBilirubin [Mass/Vol]0.4 mg/dLNormal0.2-1.0[facility] Comment on above:Performed By: #### BMP, LIVER, LIPID, TSH ####[facility] [address] [place], [place] [address]Dr. Yilan ChangGlobulin (S) [Mass/Vol]3.4 g/dLNormalThe [facility] HospitalComment on above:Performed By: #### BMP, LIVER, LIPID, TSH ####[facility] [address] [place], [place] [address]Dr. Yilan ChangProtein [Mass/Vol]7.0 g/dLNormal6.4-8.2 The [facility] HospitalComment on above:Performed By: #### BMP, LIVER, LIPID, TSH ####[facility] [address] [address]Dr. Britt MendozaPROF CHEM 8 (BAS METB)on 56-77-4585Lmhxx gap [Moles/Vol]13.8 mmol/L NormalThe Newark HospitalComment on above:Result Comment: Previously reported as: -2.3 On 05/07/2022 13:50 By [id number] By: #### BMP, LIVER, LIPID, TSH #### [facility] [address] [address] [address] Britt MendozaCalcium [Mass/Vol]9.2 mg/dLNormal8.5-10.1[facility] Comment on above:Performed By: #### BMP, LIVER, LIPID, TSH #### [facility] [address] [address] [address] Britt MendozaChloride [Moles/Vol]99 mmol/XWguulq33-462Nwp [facility] Comment on above:Result Comment: Previously reported as: 106 On 05/07/2022 13:50 By [id number] By: #### BMP, LIVER, LIPID, TSH #### [facility] [address] [address] [address] Britt MendozaCO2 [Moles/Vol]27.3 mmol/VKnrorb97.0-32.0[facility] Comment on above:Result Comment: Previously reported as: 29.2 On 05/07/2022 13:50 By [id number] By: #### BMP, LIVER, LIPID, TSH #### [facility] [address] [address] [address] Britt MendozaCreatinine [Mass/Vol]1.12 mg/dLNormal0.70-1.30The [facility] HospitalComment on above:Performed By: #### BMP, LIVER, LIPID, TSH #### [facility] [address] [address] [address] Britt SueGFR-AF SOLOMON ISLANDER>60Normal>=60The [facility] HospitalComment on above:Performed By: #### BMP, LIVER, LIPID, TSH #### [facility] [address] [address] [address] Britt SueGFR-NON AF SOLOM[place] ISLANDER>60Normal>=60The [facility] HospitalComment on above:Performed By: #### BMP, LIVER, LIPID, TSH #### [facility] [address] [address] [address] Britt MendozaGlucose [Mass/Vol]108 mg/dLCritically bqcs16-441Ovf [facility] HospitalComment on above:Performed By: #### BMP, LIVER, LIPID, TSH #### [facility] [address] [address] [address] Britt MendozaPotassium [Moles/Vol]4.1 mmol/LNormal3.5-5.1[facility] Comment on above:Result Comment: Previously reported as: 3.9 On 05/07/2022 13:50 By [id number] By: #### BMP, LIVER, LIPID, TSH #### [facility] [address] [place] [address] Dr. Britt MendozaSodium [Moles/Vol]136 mmol/EQquxjx483-056Tob [facility] Comment on above:Result Comment: Previously reported as: 129 On 05/07/2022 13:50 By CU9Voinpionu By: #### BMP, LIVER, LIPID, TSH #### [facility] [address] [address] [address] Britt MendozaUrea nitrogen [Mass/Vol]26.0 mg/dLCritically high7.0-18.0The [facility] HospitalComment on above:Performed By: #### BMP, LIVER, LIPID, TSH #### [facility] [address] [address] [address] Britt Suárez nitrogen/Creatinine [Mass ratio]23.2 mg/mgNormalThe [facility] HospitalComment on above:Performed By: #### BMP, LIVER, LIPID, TSH #### [facility] [address] [address] [address] Britt Leiva 93-78-1670TVZ4.828 uIU/mLNormal0.358-3.740Samaritan HospitalComment on above:Performed By: #### BMP, LIVER, LIPID, TSH ####[facility] [address] [address]Dr. Britt Mendoza VITAMIN D 25 OHon 77-88-2469CJI D 25-OH45.6 ng/mLNormalSamaritan Hospital Comment on above:Performed By: #### VITAD, PSASC #### [facility] [address] [address] [address] Britt Aj [facility] OhioComment on above: Result Comment: <20 ng/mL Vit D deficient 20 - <30 ng/mL Vit D insufficient 30 - 100 ng/mL Vit D sufficient >100 ng/mL Potential ToxicityPerformed By: #### VITAD, PSASC #### [facility] [address] [address] [address] Britt MendozaCovid-19 PCR (CVDTBH)on 55-25-1267CDCO-CoV-2 (COVID-19) RNA KATT+probe Ql (Unsp spec)DetectedCritically abnormalNOT DETECTEDThe Newark HospitalComment on above:Result Comment: This test is not yet approved or cleared by the [place] FDA. When there are no FDA-approved or cleared tests available, and other criteria are met, FDA can make tests available under an emergency access mechanism called an Emergency Use Authorization (EUA). The EUA for this test is supported by the [place] of Health and Human Service's declaration that [...] mayno longer be used).Performed By: #### CVDTBH ####[facility] [address] [address]Dr. Britt Mendoza Cardiac Stress Teston 47-25-8454Awrrobe Stress TestNoFirstHealth Montgomery Memorial Hospital [address] [place] [address], [address], [place] [address] Exercise Stress Test Patient Name: LILIANA MICHAELS JR. Ordering Physician: [id number] Ty MD Study Date: 02/15/2022 Reading Physician: [id number] Ty MD MRN/PID: [id number] Supervising Physician: [id number] Yovani Rivera MD Accession/Order#: [id number] Referring Physician: VALENTINO TY Date of : 1965 PCP: Ishmael Simon Gender: M Fellow: Height: 162.56 cm Nurse: Yunior Bhatti RN Weight: 81.65 kg Winter Sports Manager: SAEID BSA: 1.87 m2 Technologist: BMI: 30.90 kg/m2 Additional Staff: Age: 56 years cc report to: Patient Location: cc report to: [id number] Valentino Ty MD Study Type: Cardiac Stress Test Diagnosis/ICD: R94.31-Abnormal electrocardiogram [ECG] [EKG]; R00.1-Bradycardia, unspecified; R06.00-Dyspnea, unspecified Indication: Dyspnea Procedure/CPT: Stress Test Interpretation-72581; Stress Test Supervision-51221 Falls Risk: Low: Patient has low risk [...] 7. An element of chronotropic incompetency noted. [id number] Valentino Ty MD Electronically signed on 02/16/2022 at 2:52:20 PM Final NormalSouthwest Memorial HospitalCardiac Stress TestPlease click on the link to view the study [facility] Work Phone: Cardiac Stress TestEastern State Hospital [facility] 250 DO Work Phone: Office Visit (Cardiology)on 26-26-6301Cbyocb-up visit Diagnoses/Problems Assessed Sinus bradycardia (427.89) (R00.1) [...] we can help. You may also call [phone]-NOW for free resources and assistance.; Status:Complete - Retrospective Authorization; Done: [id number] SocHx: Current smoker Continue with our present treatment plan.; Status:Complete - Retrospective Authorization; Done: [id number] Tobacco Use Screening; Status:Complete; Done: 77Hin4311 Patient Instructions Please bring all medicines, vitamins, [...] This led to a cardiac evaluation in [place] and its not clear to me whether [...] Oral Capsule Delayed ReleaseTAKE 1 CAPSULE Daily Mdhzlk4r at bedtime Sin (more content not included)...NormalUH TouchworksTobacco Screening.on 38-93-3587Jagir depression screening assessmentNoEastern State Hospital CarePoint HealthThe [facility] Net[employer] DO Work Phone: Fall risk assessmenta) No falls within the last year [facility] 600 DO Work Phone: Tobacco use status CPHSa) YesKittson Memorial Hospital NetLex DO Work Phone: Tobacco Screening.YesSt. Francis Regional Medical [facility] 600 DO Work Phone: [phone]-66 PCR (CVDTBH)on 80-13-5073CGFQ-CoV-2 (COVID- 19) RNA KATT+probe Ql (Unsp spec)Not detectedNormalNOT DETECTEDThe [facility] on above:Result Comment: This test is not yet approved or cleared by the [place] FDA. When there are no FDA-approved or cleared tests available, and other criteria are met, FDA can make tests available under an emergency access mechanism called an Emergency Use Authorization (EUA). The EUA for this test is supported by the [place] of Health and Human Service's (HHS's) declaration [...] consistent with SARS-CoV-2.Performed By: #### CVDTB #### [facility] [address] [place], [place] [address] Dr. Britt Hylton-19 PCR ([facility])on 19-83-1861KYLC-CoV-2 (COVID-19) RNA KATT+probe Ql (Unsp spec)Not detectedNormalNOT DETECTEDThe [facility] Comment on above:Result Comment: This test is not yet approved or cleared by the [place] FDA. When there are no FDA-approved or cleared tests available, and other criteria are met, FDA can make tests available under an emergency access mechanism called an Emergency Use Authorization (EUA). The EUA for this test is supported by the [place] of Health and Human Service's (HHS's) declaration [...] symptoms consistent with SARS-CoV-2.Performed By: #### CVDTBH ####[facility] [address] [place], [place] [address]GjDr. Britt MendozaXR CHEST 2 Von 87-73-9234JP CHEST 2 VEXAMINATION: XR CHEST 2 V [...] Electronically authenticated by: FLEX JACOBS Date: 2021-10-01 09:30[facility] HospitalAmbulatory Clinical Summaryon 11-68-0855Ppxhzydfmd Clinical Summary{18-c0-[id number]-9z-66-va-s3-i1-83-58-d2-cf-8d}CD:[id number] Health Bryan HospitalHistorical Records Officeon 32-63-5508Edmmokctou Records [id number]#1.00CD:127NoParkview Health Bryan HospitalPatient Educationon 08-66-6838Haqbehn EducationUrology Erectile Dysfunction Erectile dysfunction (ED) is [...] these instructions at home: Medicines ? Take gkkq-fpl-pgnqzjk and prescription medicines only as told by [...] swelling of your (more content not included)... [facility] AdministrationUrology Office/Clinic Noteon 39-97-4742Qermxgb Office/Clinic NoteChief Complaint OV for ED HPI [...] still having trouble maintaining erections and achieving osbk734% strength. discussed penile injection therapy but pt is adamantly opposed. discussed penile pump/ring and he would like to give this a try. provided brochure to order. Ordered: Office Visit Level 4 Est 32283 2. Hypogonadism male (E29.1: Testicular hypofunction) noted [...] time. Ordered: Office Visit Level 4 Est 13643 3. BPH with urinary obstruction (N40.1: Benign prostatic hyperplasia with lower urinary tract symptoms) s/p Urolift September 2018. Pt is currently taking no bladder/prostate medication and is mostly satisfiedwith overall symptom control. has nocturia but attributes this to diuretics. Pt prefers to continuewith no changes at this time. PCP checking PSAs per pt. Ordered: Office Visit Level 4 Est 78850 Orders: Urnls Dip Stick Auto w/o Microscopy POC 99925 offered f/u 1 yr but pt prefers PRN. Total time spent reviewing previous notes/results/external documents, preparing the chart, conducting the encounter with the patient and family, ordering tests/medications, and documenting the encounter was 30 minutes. Follow-up With When Contact Information ITA SLOAN, SIMONE Priest [address] [place] [address]- Additional Instructions: Patient Education Erectile [...] mcg-25 mcg inhalation powde (more content not included)...[facility] Health AdministrationComment on above:Result Comment: Electronically Signed By: DANIEL MARTINEZ, TOMEKA Muse.br\Date and Time Signed: 03/05/2112:24 EDTMRI PELVIS WO CONTRASTon 79-35-1399ZJX PELVIS WO CONTRAST [facility] Department of Radiology [address] [place] [address] Patient Name: LILIANA MICHAELS : 1965 Sex: M Age: Race: White Pt. Location: 18 Patient Status: Ordered Date: 09/10/2020 3:35:00 PM Completed Date: 10/03/2020 08:34 AM Requesting Provider: SIMONE RUIZ Attending Provider: Report Copy To: Signs & Symptoms: R10.2 Pelvic and perineal pain I10 History: Lenore, Right FOREIGN per clinic will fax [facility] auth# [id number] 09/16/20-10/17/20 cpt code 80245 *mla Comments: Right groin to r/o an [...] spine. Electronically signed: Dinh Miller. Transcribed by: [email or web address], User Resident: Electronically Signed by: DINH MILLER @ 10/03/2020 09:57 AMNormalThe [facility] Tri[facility] Medical CenterComment on above:Order Comment: Right groin to r/o an adductor tear; iliopsoas bursitis or injuryOperative Reporton 18-14-0153Jaqbykvry ReportMR#: [id number] S [facility] Pt. Name: Liliana Michaels Room [...] Ruiz MD Date Trans: 09/10/2020 11:40 P/eva DN_JN:[id number] cc: Ishmael Simon M.D. [address] [place] [address]MehrzrXkrChillicothe VA Medical CenterCoding Summary.on 08-44-0217Wktjpr Summary. CD:[id number]:[id number]+PGhlYWQ+TQ8TXFCeE87xzXDquX8SQ6eHGU3LPJIBNEXTIE1IWH8uu IH4SMisP1ZkveHr [file] OiBj (more content not included)...NormalParkview Health Bryan HospitalAuto Diffon 93-85-1246Fbfrrxopy/100 WBC (Bld)1.0 %Normal0.0-2.0[facility] Comment on above:Order Comment: Order Added by Discern Expert.Performed By: #### [id number], [id number], [id number], [id number], [id number], [id number], [id number], [id number] ####[address] [place] [address] Basophils/Leukocytes Auto (Bld) [Pure # fraction]0.1 E9/LNormal0.0-0.2FThe Christ HospitalComment on above:Order Comment: Order Added by Discern Expert.Performed By: #### [id number], 9591922, 9745808, 25546244, 5626250, 6468516, 85807155, 38728814 ####[address] [place], [place] [address]Aosamrrtvrl/100 WBC (Bld)2.5 %Normal0.0-8.0[facility] HospitalComment on above:Order Comment: Order Added by Discern Expert.Performed By: #### 89618226, 9322418, 6606681, 56601933, 3311689, 0264531, 87855256, 11245412 ####[facility] [address] [place], [place] [address]Cynitjjzkem/Leukocytes Auto (Bld) [Pure # fraction] 0.3 E9/LNormal0.0-0.5FThe Christ HospitalComment on above:Order Comment: Order Added by Discern Expert.Performed By: #### 79052306, 1249048, 7378344, 06895969, 8785818, 2565867, 71437531, 72588430 ####[address] [place], [place] [address]Vjrdmvfcrct/100 WBC (Bld)21.0 %Normal 14.0-50.0[facility] HospitalComment on above:Order Comment: Order Added by Discern Expert.Performed By: #### 82943175, 2772474, 4816733, 54057574, 2672486, 4255827, 91295839, 35715480 ####[place] [place], [place] [address]Gmnhewvqdzf/Leukocytes Auto (Bld) [Pure # fraction]2.1 E9/LNormal1.0-4.0[facility] HospitalComment on above:Order Comment: Order Added by Discern Expert.Performed By: #### 28099000, 1905977, 2333950, 07793497, 1931193, 6525249, 30653172, 54600354 ####[address] [address]Iljtqpigv/100 WBC (Bld)6.2 %Normal4.0-14.0[facility] HospitalComment on above:Order Comment: Order Added by Discern Expert.Performed By: #### 98638775, 5495581, 1956046, 22690117, 3816115, 9167817, 56685627, 51887364 ####[address]opez [address] [address]Tzktofmqv/Leukocytes Auto (Bld) [Pure # fraction]0.6 E9/LNormal0.2-1.0[facility] HospitalComment on above:Order Comment: Order Added by Discern Expert.Performed By: #### 73416207, 8346259, 1679492, 17001854, 8129748, 2959509, 08282848, 31304933 ####[address] [address] Neutrophils/100 WBC (Bld)69.3 %Jutvkq02.0-75.0[facility] HospitalComment on above:Order Comment: Order Added by Discern Expert.Performed By: #### 36133940, 0952828, 1994856, 10614481, 3613682, 6272455, 64312035, 51213183 ####[address] [place] [address] Neutrophils/Leukocytes Auto (Bld) [Pure # fraction]6.9 E9/LNormal2.0-7.5FThe Christ HospitalComment on above:Order Comment: Order Added by Discern Expert.Performed By: #### 83185814, 8881999, 6678247, 59318363, 1255579, 8837336, 24050083, 89093530 ####[address] [address]VIHgg 03-57-5870Qrlvsgvapo [Mass/Vol]1.1 mg/dL Normal0.5-1.3FThe Christ HospitalComment on above:Performed By: #### 96402537, 1095338, 9554713, 47687609, 6191606, 8345698, 60298089, 65496884 ####[address] [address]Njvx nitrogen [Mass/Vol]19 mg/dLNormal5-21[facility] HospitalComment on above:Performed By: #### 99687142, 5106454, 3970974, 30264410, 0249683, 5392308, 13095290, 41668811 ####[address] [address]Wjgc nitrogen/Creatinine [Mass ratio]17 No KhrhwButkhe47-41 [facility] HospitalComment on above:Performed By: #### 68271061, 1143765, 1057374, 41832974, 0380125, 7358778, 16893470, 40868470 ####[address] [place], [place] [address]Xqhhc gap [Moles/Vol]14 mmol/LNormal6-16[facility] HospitalComment on above: Performed By: #### 19599548, 8713987, 3063813, 17825974, 7857428, 9417402, 42864736, 86341919 ####[facility] [address] [place], [place] [address]Fvfjzbg [Mass/Vol]9.4 mg/dLNormal8.9-11.1FThe Christ HospitalComment on above:Performed By: #### 31846236, 1667905, 8492927, 21063146, 0678729, 5204139, 66873451, 04110778 ####[facility] [address] [place], [place] [address]Txbmpiam [Moles/Vol]94 mmol/LLow 101-111[facility] HospitalComment on above:Performed By: #### 47716288, 7304697, 4539933, 79761093, 1126581, 7665636, 68911777, 89239627 ####[facility] [address] [place], [place] [address]TQ3 [Moles/Vol] 29 mmol/LZvddra96-82MyljrvParkview Health Bryan HospitalComment on above:Performed By: #### 77030591, 0878850, 5361103, 03851939, 0675795, 7686173, 98226977, 16086884 ####[facility] [address] [place] [address] Glucose [Mass/Vol]103 mg/aRUntdmi27-674UbydqsParkview Health Bryan HospitalComment on above:Result Comment: If this glucose result represents a fasting glucose, interpretation should refer tothe following reference range: 55-99 mg/dL Performed By: #### 61990669, 8811758, 9018730, 51440314, 0455776, 4449250, 57303224, 30910591 ####[facility] [address] [place], [place] [address]Vpjaqsksl [Moles/Vol]4.0 mmol/LNormal3.5-5.3FThe Christ HospitalComment on above:Performed By: #### 99754488, 4703716, 7895459, 10076535, 5922475, 8378122, 50074323, 61914277 ####[facility] [address] [place], [place] [address]Zrsqma [Moles/Vol]133 mmol/LLow 135-145[facility] HospitalComment on above:Performed By: #### 11449600, 7038045, 6100739, 75035535, 9749987, 9167649, 08988046, 63043041 ####[address] [place], [place] [address]ZUEjy 08-24-2020 Natriuretic peptide B (Bld) [Mass/Vol]17 pg/mLNormal5-80[facility] HospitalComment on above:Performed By: #### 81702022, 6085504, 6974568, 90137190, 6449343, 7685921, 30715647, 96026766 ####[address] [address]FQI w/ Auto Diffon 08-24-2020 Erythrocyte distribution width (RBC) [Ratio]12.9 %Ffbrpy00.9-14.2FThe Christ HospitalComment on above:Performed By: #### 37236678, 3895177, 8180117, 70850467, 5630974, 4024629, 03282088, 44028483 ####[address] [place], [place] [address]Ftcjiwmoqk (Bld) [Volume fraction] 44.4 %Okndwc65.7-49.0[facility] HospitalComment on above:Performed By: #### 12221349, 6060169, 6106482, 93718128, 1176126, 1372556, 79789351, 59101121 ####[address] [place] [address] Hemoglobin (Bld) [Mass/Vol]15.3 g/vLAyfzlx43.5-17.5FThe Christ Hospital Comment on above:Performed By: #### 11710280, 2424078, 6005551, 58752683, 2920611, 2910675, 84454720, 22050722 ####[place] [facility] [address] [place] [address]YBV (RBC) [Entitic mass]31.5 pgNormal 27.0-34.0[facility] HospitalComment on above:Performed By: #### 70318374, 5743365, 4836358, 09178514, 3446659, 8364336, 21592647, 00501472 ####[address] [address]YDJV (RBC) [Mass/Vol]34.4 g/hBOjiyqk08.4-36.0[facility] HospitalComment on above:Performed By: #### 86452111, 5590208, 9179414, 45816489, 7886979, 0136980, 45920509, 16812892 ####[address] [address]RYA (RBC) [Entitic vol]91.6 nNVuqtin22.0-100.0[facility] HospitalComment on above:Performed By: #### 40984513, 2152577, 5329669, 52913422, 6066895, 6545157, 24848090, 20529579 ####[address] [address]Ywmpwwek mean volume (Bld) [Entitic vol]8.4 fLNormal6.4-10.8[facility] HospitalComment on above:Performed By: #### 90367157, 7947848, 9832731, 45923860, 7599022, 5074340, 44949675, 41337418 ####[address] [address]Rnxaexblw (Bld) [#/Vol]289.0 E9/DCyinoh157.0-500.0[facility] HospitalComment on above:Performed By: #### 91257284, 4728912, 6872835, 42539494, 5379291, 7968271, 85204187, 97081299 ####[facility] [address] [place], [place] [address]KKR (Bld) [#/Vol]4.8 E12/LNormal 4.3-5.9[facility] HospitalComment on above:Performed By: #### 55504778, 1642431, 7751751, 26773581, 5013372, 7847387, 32957514, 48029709 ####[facility] [address] [place], [place] [address]KSA corrected for nucl RBC Auto (Bld) [#/Vol]9.9 E9/LNormal4.0-11.0[facility] Comment on above:Performed By: #### 54213388, 1673007, 1622702, 47806349, 1403140, 0690067, 52390112, 41527383 ####[facility] [address] [place], [place] [address]ZXC Cheston 92-56-3564UTM ChestExam Date/Time: 08/24/2020 01:56 EDT Reason for [...] Contrast: Isovue 370 Contrast amount in ml's: 78NoParkview Health Bryan HospitalConsent for Treatmenton 65-60-2576Lcdtcqy for Treatment [id number]#1.00CD:127Veterans Health AdministrationD-Dimeron 64-65-5889Kzsrgt D-dimer FEU (PPP) [Mass/Vol]845 ng/mLAbnormal 215-500[facility] HospitalComment on above:Result Comment: Results Verified By Repeat [...] skin infections Liver cirrhosis PregnancyPerformed By: #### 64545931, 8457302, 4900780, 56302620, 2270275, 4053246, 08545884, 61142178 ####[facility] [address] [place], [place] [address]Gdsvjbplk Instructionson 41-70-7234Skrytuwck [id number]#1.00CD:127NoM[facility] Clinical Summaryon 46-32-6547EP Clinical Summary [address] [address] ED Clinical Summary Person Information Name: LILIANA MICHAELS Kristine/[facility] Age: 55 Years : 1965 Sex: Male Language: Irish PCP: SIMONE JEAN BAPTISTE DC Marital Status: Single Phone: [phone] Visit Id: Visit Reason: Rib/trunk pain-swelling; SIDE [...] 03:27:58 08/24/2020 03:27:58 08/24/2020 03:27:58 ADDRESS: [address] [place] [phone] PHYS DOC NOTES: MEDICAL INFORMATION: Prescriptions Given: New Medications [id number], [address], [place] [id number], [phone] azithromycin (Zithromax TRI-AMIRA 500 mg oral tablet) [...] With: Address: When: SIMONE JEAN BAPTISTE [address] [place] [address] [facility] (1) In 1 day 08/25/2020 Comments: Patient is advised to follow-up with his primary care physician in 1 to 2 days. He is also advised to come back to the emergency department if symptoms get worse. DIAGNOSIS: 1:Rib pain on left sideNoalFisher Parth Medical CenterED Note-Physicianon 38-31-9658RN Note-PhysicianBasic Information Time Seen: Pia LANE, David [...] Daily, # 3 tab(s), Refills(s) 0, Pharmacy: [id number], 163, cm, 08/24/20 0:04:00 [...] 08/24/20 0:04:00 EDT, Julian (more content not included)...[facility] Health AdministrationComment on above:Result Comment: Electronically Signed By: Pia LANE, David\.br\Date and Time Signed: 08/24/20 03:10 EDTED Patient Education Noteon 65-25-2533TC Patient Education NoteChest Pain (Nonspecific) It is [...] Document Reviewed: 11/28/2008 ExitCare? Patient Information ?2015 [employer]. This information is not intended to replace advice given to you by your health care provider. Make sure you discuss any questions you have with yourhealth care provider.[facility] Patient Summaryon 06-31-9008HF Patient Summary [address] [address] Patient Discharge Instructions Person Information Name: LILIANA MICHAELS Age: 55 Years Arrival Date: 08/23/2020 23:48:11 Discharge Diagnosis: 1:Rib pain on left side Primary Care Physician: SIMONE JEAN BAPTISTE DC Provider Information Primary Provider: Pia LANE, David Advanced Nuisance Wildlife Control Operator:None The exam and treatment you received in the Emergency Department were for an urgent problem and are not intended as complete care. It is important that you follow up with a doctor, nurse practitioner,or physician?s phlebotomist lab assistant for ongoing care. If your symptoms [...] Instructions: With: Address: When: SIMONE ITA [address] [place] [address] Business (1) In 1 day 08/25/2020 Comments: [...] opioids can be used to help relieve eckbzwvx-qp-nqtzvt pain and are often prescribed following a [...] your community drug take- back program or yourprovidence st. mary medical centerMiner mail-back program, or flush them down the toilet, following guidance from the Food and Drug Administration (www.fda.gov/Drugs/ResourcesForYou). ? Visit www.cdc.gov/drugoverdose to learn about the risks of opioids abuse and overdose. ? If you believe you may be struggling (more content not included)...Normal [facility] HospitalPT & PTTon 64-80-3146rFPI Coag (PPP) [Time]30.2 second(s)Yzkier64.1-36.5FThe Christ HospitalComment on above:Result Comment: Heparin therapeutic range (represented by Anti-Factor Xa activity of 0.2 - 0.4 U/mL) corresponds to PTT of 56.6 - 109.0 sec.Performed By: #### 67631068, 4109277, 8468647, 52538197, 8880529, 6129511, 20748334, 51011227 ####[facility] [address] [place], [place] [address]TAI Coag (PPP) [Relative time]1.0 {INR}Invalid Interpretation CodeParkview Health Bryan Hospital Comment on above:Result Comment: INR results are specifically intended to assess patients stabilized on long-term Anticoagulation therapy suggested INR?s ?Less Intensive Anticoagulation? 2.0 ? 3.0 Conventional Range 3.0 ? 4.5Performed By: #### 70316641, 0193178, 1175673, 08213452, 0348599, 4222487, 55446819, 11382092 ####[facility] [address] [place], [place] [address]MO Coag (PPP) [Time]11.6 second(s) Gyakaa95.2-12.9[facility] HospitalComment on above:Performed By: #### 81284669, 0177385, 8697336, 26143636, 2309159, 8076466, 72137183, 93005162 ####[facility] [address] [place], [place] [address]BRL - Preliminary Cat Scan Reporton 50-69-5946NVI - Preliminary Cat Scan Report [id number]#1.00CD:127NormalParkview Health Bryan HospitalRapid COVID Antigen ([facility])on 31-61-8516Mofzt COV Int NEG CtlPassNormal [facility] HospitalComment on above:Performed By: #### [id number] ####[facility] [address] [facility] RB41470Wesrb COV Int POS CtlPassNormalParkview Health Bryan HospitalComment on above:Performed By: #### [id number] ####[facility] [address] [facility], [place]QJXK-KfL-1 (COVID-19) RNA KATT+probe Ql (Unsp spec)Not detectedNormalNot DetectedParkview Health Bryan HospitalComment on above:Result Comment: The Teads System for Rapid Detection of SARS-CoV-2 is [...] any otherviruses or pathogens; and, in the [facility], this test is only authorized for the duration of the declaration that circumstances exist justifying the authorization of emergency use of in vitro diagnostics for detection and/or diagnosis of the virus that causes COVID-19 under Section 564(b)(1) of the Act,21 U.S.C. ? 360bbb-3(b)(1), unless the authorization is terminated or revoked sooner.Performed By: #### [id number] ####[address] [place] [address], [place]Ayhqtrmd in Healthcare [facility] County HospitalComment on above:Performed By: #### [id number] ####[address] AveNorbatavia veterans administration [place], [place] [address]Ltoom TestUnknownNNorwalk Memorial HospitalComment on above: Performed By: #### [id number] ####[address] AveNorbatavia veterans administration hospit[place], [id number]?[facility] Comment on above:Performed By: #### [id number] ####[address] AveNhartford hospital, HT[address]NAVSAIijyaxLuoyqbThe [facility] Comment on above:Performed By: #### 1875462260 ####[address] Ave[place], [place]Hehylkkt?[facility] HospitalComment on above:Performed By: #### 3920475143 ####[address], [place]Nidtscd in a Congregate Care SettingHenry County HospitalComment on above:Performed By: #### [id number] ####[facility] [address] Row[address] Ave[place]walk, [place] [address]Ueppivreiwq as defined by [facility] - WILD ROSEYESVeterans Health AdministrationComment on above:Performed By: #### [id number] ####[facility] [address] [place], [place]Troponin 0 Hr.on 77-70-4071Jetlayvn I.cardiac [Mass/Vol]4.10 pg/mLLow15.90-38.40[facility] HospitalComment on above:Result Comment: The 95% CI (Confidence Interval) PPV (Positive Predictive Value) for myocardial infarction in females is 38 pg/mL, in males 51 pg/mL. The results should be used in conjunction with clinical conditions of myocardial infarction. (Access High Sensitivity Troponin I Instructions For Use, Physician Practice [employer], December 2017)Performed By: #### 64406764, 8292434, 9596483, 95971024, 9314787, 1143081, 46339361, 28199350 ####[facility] [address] [place], [place] [address]Qetivxvo 3 Hr.on 05-26-7228Jtwkukxl I.cardiac [Mass/Vol]4.40 pg/mLLow15.90-38.40[facility] HospitalComment on above: Result Comment: The 95% CI (Confidence Interval) PPV (Positive Predictive Value) for myocardial infarction in females is 38 pg/mL, in males 51 pg/mL. The results should be used in conjunction with clinical conditions of myocardial infarction. (Access High Sensitivity Troponin I Instructions For Use, Physician Practice [employer], December 2017)Performed By: #### [id number] ####[address] [place], [place] [address]JM Chest Single Viewon 61-48-0475HC Chest Single ViewExam Date/Time: 08/24/2020 01:04 EDT [...] Reis MD, V. Transcribed by: VIVIAN Technologist: BrianParkview Health Bryan HospitaleGFRon 69-19-5252SJZ/1.73 sq M.predicted among blacks MDRD (S/P/Bld) [Vol rate/Area] mL/min/{1.73_m2}Normal>=59Park[facility] Bryan HospitalComment on above:Order Comment: Order added by Discern Expert.Result Comment: eGFR is race adjusted. AA=.Performed By: #### 19204652, 1823996, 9162164, 57441220, 5487948, 5434589, 13878195, 01765117 ####[facility] [address] [place], [place] [address]WAV/1.73 sq M.predicted among non- blacks MDRD (S/P/Bld) [Vol rate/Area]mL/min/{1.73_m2}Normal>=59[facility] HospitalComment on above:Order Comment: Order added by Discern Expert. Result Comment: Chronic kidney disease could be indicated at eGFR's of less than 60 mL/min/1.73m2. Kidney failure is indicated at less than 15 mL/min/1.73m2. Performed By: #### 44981156, 6235545, 3320354, 59786382, 0941943, 4745110, 30932325, 87347433 ####[facility] [place], [place] [address]GPN RIGHT 1 OR 2 VWS WITH PELVISon 98-65-0049BUZ RIGHT 1 OR 2 VWS WITH PELVISUnJoint Township District Memorial Hospital Department of Radiology [address] [place] [address] Patient Name: LILIANA MICHAELS : [...] Electronically signed: Ana M Mariee. Transcribed by: [email or web address], User Resident: Electronically Signed by: ANA M MARIEE @ 07/24/2020 10:01 AMNJoint Township District Memorial HospitalComment on above:Order Comment: Views (X-RAY, HIP): Radiologic ProtocolHIP RIGHT 1 OR 2 VWS WITH PELVISon 02-88-3744TWJ RIGHT 1 OR 2 VWS WITH PELVISUnJoint Township District Memorial Hospital Department of Radiology [address] [place] [address] Patient Name: LILIANA MICHAELS : 1965 [...] abnormality. Electronically signed: Ed España. Transcribed by: [email or web address], User Resident: Electronically Signed by: ED ESPAÑA @ 04/25/2020 08:22 AMNormalThe [facility] TriPoint Medical CenterComment on above:Order Comment: Views (X-RAY, HIP): Radiologic ProtocolOperative Reporton [id number] ReportMR#: [id number] [facility] Pt. Name: Liliana Michaels Room #: 6AB 190980 Discharge 03/15/2020 Date: Birthdate: 1965 OPERATIVE REPORT DATE OF SURGERY: 03/14/2020 SURGEON: eJy Munguia MD PREOPERATIVE DIAGNOSIS: Right hip degenerative [...] the correct a (more content not included)...NormalThe [facility] Tri[facility] Medical CenterBASIC METABOLIC PANELon 05-57-4902Zqcltqf [Mass/Vol]8.8 mg/dLNormal8.6-10.3The [facility] Medical CenterComment on above:Order Comment: Views (X-RAY, HIP): Radiologic ProtocolPerformed By: #### [address] ####[facility] [place] [address], USAChloride [Moles/Vol]98 mmol/TGcdvrt12-057Ljd [facility] CenterComment on above:Order Comment: Views (X-RAY, HIP): Radiologic ProtocolPerformed By: #### [address] ####[facility] [place] [address], [facility] CENTERCO2 [Moles/Vol]30 mmol/L Exltrq22-76Ntf [facility] CenterComment on above:Order Comment: Views (X-RAY, HIP): Radiologic ProtocolPerformed By: #### 565[address] ####[facility] [place] [address], [facility] Creatinine [Mass/Vol]0.96 mg/dLNormal0.70-1.30The [facility] Medical CenterComment on above:Order Comment: Views (X-RAY, HIP): Radiologic Protocol Performed By: #### 782[address] ####[facility] [place] [address], USAGFR/1.73 sq M.predicted among blacks MDRD (S/P/Bld) [Vol rate/Area]mL/min/{1.73_m2}Normal>60The [facility] Comment on above:Order Comment: Views (X-RAY, HIP): Radiologic ProtocolPerformed By: #### 53314 ####[facility] [place] [address], USAGFR/1.73 sq M.predicted among non-blacks MDRD (S/P/Bld) [Vol rate/Area]mL/min/{1.73_m2}Normal>60The [facility] Comment on above:Order Comment: Views (X-RAY, HIP): Radiologic ProtocolPerformed By: #### 319[address] ####[facility] [place] [address], USAGlucose [Mass/Vol]151 mg/vOBzlu07-001Gxf [facility] CenterComment on above:Order Comment: Views (X-RAY, HIP): Radiologic ProtocolPerformed By: #### 89760 ####[facility] [place] [address], USAPotassium [Moles/Vol]4.4 mmol/LNormal3.5-5.1 The [facility] Medical CenterComment on above:Order Comment: Views (X- RAY, HIP): Radiologic ProtocolPerformed By: #### 60043 ####[facility] [address], USASodium [Moles/Vol]133 mmol/BPgy478-756Vjp [facility] CenterComment on above:Order Comment: Views (X-RAY, HIP): Radiologic ProtocolPerformed By: #### 04768 ####[facility] [place] [address], [place] Urea nitrogen [Mass/Vol]20 mg/dLNormal7-25The [facility] Medical CenterComment on above:Order Comment: Views (X-RAY, HIP): Radiologic Protocol Performed By: #### 42125 ####[facility] [place] [address], USACBC COMPLETE BLOOD COUNTon 67-98-9749Rqayfkvtdxh distribution width (RBC) [Ratio]12.2 %Kujisb20.5-15.0The [facility] Medical CenterComment on above:Order Comment: No: Do not add to previous draw Performed By: #### 65585 #### [facility] [address] [place] [address], USAHematocrit (Bld) [Volume fraction]42.2 %Jyikbk16.0-50.0The [facility] CenterComment on above:Order Comment: No: Do not add to previous drawPerformed By: #### 71105 #### [facility] [address] [facility] [place] [address], USAHemoglobin (Bld) [Mass/Vol]13.9 g/zPXbsafe29.0-17.0The [facility] CenterComment on above:Order Comment: No: Do not add to previous drawPerformed By: #### 60911 #### [facility] [address] [place] [address], [facility] (RBC) [Entitic mass]31.4 mmZndvkd64.0-33.0The [facility] CenterComment on above:Order Comment: No: Do not add to previous drawPerformed By: #### 14744 #### [facility] [address] [place] [address], [facility] (RBC) [Mass/Vol]32.9 g/vVRocsmo53.0-35.0The [facility] CenterComment on above:Order Comment: No: Do not add to previous drawPerformed By: #### 61813 #### [facility] [address] [place] [address], [facility]V (RBC) [Entitic vol]95.5 bVWpwtyy24.0-98.0The [facility] CenterComment on above:Order Comment: No: Do not add to previous drawPerformed By: #### 44900 #### [facility] [address] [place] [address], USANucleated RBC/100 WBC (Bld) [Ratio]0 %Normal0-0The [facility] CenterComment on above:Order Comment: No: Do not add to previous drawPerformed By: #### 39815 #### [facility] [address] [address], USAPLAT XAM369 10*3/lOQssdvm939-909Rrg [facility] CenterComment on above:Order Comment: No: Do not add to previous draw Performed By: #### 51102 #### [facility] [address] [place] [address], [facility] CENTERRBC (Bld) [#/Vol]4.42 10*6/uLNormal4.20-5.70The [facility] Schmidt Medical CenterComment on above:Order Comment: No: Do not add to previous drawPerformed By: #### 99217 #### [facility] [address] [place] [address], USAWBC (Bld) [#/Vol]14.44 10*3/uLHigh4.00-10.60The [facility] CenterComment on above:Order Comment: No: Do not add to previous drawPerformed By: #### [id number] #### [facility] [address] [place] [id number], USAPOC GLUCOSE LABon 55-04-6218Oksoawm [Mass/Vol]193 mg/dLHigh 70-100The [facility] CenterComment on above:Performed By: #### [id number] #### [facility] [address] [facility] [place] [address], USACBC W/DIFFon 43-46-7163ODH IMM GRANS0.2 10*3/uLNormal 0.0-0.2The [facility] CenterComment on above:Performed By: #### [id number] ####[facility] [place] [address], USAABS NEUTROPHILS8.0 10*3/uLHigh1.6-7.6The [facility] CenterComment on above:Performed By: #### 93033 ####[facility] [place] [address], USABasophils (Bld) [#/Vol]0.1 10*3/uLNormal0.0-0.2The [facility] CenterComment on above: Performed By: #### 62381 ####[facility] [place] [address], USABasophils/100 WBC (Bld)1.1 %High0.0-1.0The [facility] CenterComment on above:Performed By: #### [id number] ####[facility] [place] [address], [facility]ENTEREosinophils (Bld) [#/Vol]0.3 10*3/uLNormal0.0-0.5The [facility] Comment on above:Performed By: #### 60234 ####[address] [place] [address], [facility]ENTEREosinophils/100 WBC (Bld)2.7 % Normal0.0-6.0The [facility] CenterComment on above:Performed By: #### [id number] ####[address] [place] [address], [facility] CENTERErythrocyte distribution width (RBC) [Ratio]12.3 %Pmrlhw64.5-15.0 The [facility] CenterComment on above:Performed By: #### [id number] ####[address] [place] [address], [facility] Hematocrit (Bld) [Volume fraction]50.5 %High39.0-50.0The [facility] CenterComment on above:Performed By: #### 51428 ####[place] [address], [facility] CENTERHemoglobin (Bld) [Mass/Vol]17.3 g/xXPugf26.0-17.0The [facility] CenterComment on above:Performed By: #### [address]3049 ####[place] [address], [facility] CENTERIMMATURE GRANS1.4 %High0.0-1.0The [facility] CenterComment on above:Performed By: #### 00455 ####[place] [address], [facility] CENTERLymphocytes (Bld) [#/Vol]1.8 10*3/uLNormal1.2-4.0The [facility] Comment on above:Performed By: #### 98419 ####[facility] [place] [address], [facility] CENTERLymphocytes/100 WBC (Bld)15.6 %Low 20.0-45.0The [facility] CenterComment on above:Performed By: #### 16657 ####[facility] [place] [address], [facility] (RBC) [Entitic mass]31.7 maCmeeos00.0-33.0The [facility] CenterComment on above:Performed By: #### 68055 ####[facility] [place] [address], [facility] CENTERMCHC (RBC) [Mass/Vol]34.3 g/uLHuthls99.0-35.0The [facility] CenterComment on above: Performed By: #### 44946 ####[facility] [place] [address].[place] [address], [facility] CENTERMCV (RBC) [Entitic vol]92.7 yDYdwmya87.0-98.0The [facility] CenterComment on above:Performed By: #### 03551 ####[facility] [place] [address], [facility] Monocytes (Bld) [#/Vol]0.9 10*3/uLNormal0.1-1.0The [facility] CenterComment on above:Performed By: #### 70872 ####[facility] [place] [address], [facility] CENTERMONOS8.2 %Normal5.0-12.0The [facility] CenterComment on above:Performed By: #### 34498 ####[facility] [place] [address].[place] [address], [facility] Neutrophils/100 WBC (Bld)71.0 %Dcszkc71.0-72.0The [facility] CenterComment on above:Performed By: #### 66097 ####[facility] [place] [address], USANucleated RBC/100 WBC (Bld) [Ratio]0 %Normal0-0The [facility] CenterComment on above: Performed By: #### 71763 ####[facility] [address], USAPLAT ZAQ417 10*3/jHOpsolr727-499Qcq [facility] CenterComment on above:Performed By: #### 97137 ####[facility] [facility] [place] [address], USARBC (Bld) [#/Vol] 5.45 10*6/uLNormal4.20-5.70The [facility] CenterComment on above:Performed By: #### 97436 ####[facility] [place] [address], [facility] CENTERWBC (Bld) [#/Vol]11.22 10*3/uLHigh4.00-10.60 The [facility] CenterComment on above:Performed By: #### 56332 ####[facility] [place] [address], [facility] HIP RIGHT 1 OR 2 VWS WITH PELVISon 31-03-5969WRK RIGHT 1 OR 2 VWS WITH PELVIS [facility] Department of Radiology [address] [place] [id number] Patient Name: LILIANA MICHAELS : 1965 [...] purposes Electronically signed: Aria Steinberg. Transcribed by: [email or web address], User Resident: Electronically Signed by: ARIA STEINBERG @ 03/14/2020 03:44 PMNormalThe [facility] CenterComment on above:Order Comment: RT THAPOC GLUCOSE LABon 82-70-8572Npslvpg [Mass/Vol]222 mg/aVJfsa90-636Gqi [facility] CenterComment on above:Performed By: #### 78394 #### [facility] [address] [place] [address], USAGlucose [Mass/Vol]217 mg/zPWdzk76-248Hlw [facility] CenterComment on above:Performed By: #### 93900 ####[facility] [place] [address], USAGlucose [Mass/Vol] 141 mg/yCKmtz90-984Rtu [facility] CenterComment on above: Performed By: #### 02537 #### [address] [place] [address], USAPORTABLE HIP RIGHT 1 OR 2 VWS WITH PELVISon 03-14-2020 PORTABLE HIP RIGHT 1 OR 2 VWS WITH PELVISUnJoint [facility] District [facility] Department of Radiology [address] [place] [phone] Patient Name: LILIANA MICHAELS : 1965 Sex: [...] air Electronically signed: Aria Steinberg. Transcribed by: [email or web address], User Resident: Electronically Signed by: ARIA STEINBERG @ 03/14/2020 03:46 PMNormalThe [facility] CenterComment on above:Order Comment: Hardware Evaluation, AP/LateralTYPE AND SCREENon 67-11-3916FRX INTERPRETATIONONoSt. Mary's Medical Center, Ironton CampusComment on above:Performed By: #### 34247 ####[facility] [facility] RH INTERPRETATIONPositiveNoSt. Mary's Medical Center, Ironton CampusComment on above:Performed By: #### 18102 ####[facility] [facility] Vital Signs Date TimeVital SignValuePerforming XonqzesvcBolkguwj66-96-4568 08:41-0400Body .6 cmIshmael Simon MD Work Phone: [facility] HospitalMoexuxymom80-75-5749 08:41-0400Body mass index (BMI) [Ratio]38.28 kg/m2Ishmael Simon MD Work Phone: [facility] HospitalUxucypknzm92-18-9710 08:41-0400Body temperature 97.5 [degF]Ishmael Simon MD Work Phone: [facility] HospitalSgavxkrdfr38-67-5374 08:41-0400Body .15 kgIshmael Simon MD Work Phone: [facility] HospitalZjsgqfsjpe19-53-6927 08:41-0400Diastolic blood mm[Hg]Ishmael Simon MD Work Phone: noSSM Health CareWcoagfytcx07-92-8535 08:41-0400Heart rate89 /min Ishmael Simon MD Work Phone: [place] [address]Gajieciqyu75-61-3798 08:41-0400Respiratory rate18 /minIshmael Simon MD Work Phone: [place] [address]Wsxifgyswm22-90-8346 08:41-6207DwS2% (BldA) [Mass fraction]94 %Ishmael Simon MD Work Phone: [facility] HospitalGizydocxsa13-92-0255 08:41-0400Systolic blood byoqmwqq511 mm[Hg]Ishmael Simon MD Work Phone: [facility] HospitalXwzabmckfu24-40-9958 09:04-0400Body .6 cmAregina Son MD Work Phone: 1(579)535-[address] [place], [place] 5765607-23-2025 09:04-0400 Body mass index (BMI) [Ratio]38.62 kg/g1WtsucllAmador Son MD Work Phone: 1(992)[address]07-23-2025 09:04-0400 Body .06 kgAmador Son MD Work Phone: 1(887)[address]07-23-2025 09:04-0400 Diastolic blood kvolzltk69 mm[Hg]Amador Son MD Work Phone: 1(548)[address]07-23-2025 09:04-0400 Heart rate65 /minAmador Son MD Work Phone: 1(696)270-[address] [place], [place] 57[address]607-23-2025 09:04-0400 Systolic blood zzpzoqla994 mm[Hg]Amador Son MD Work Phone: 1(134)[address]06-17-2025 09:20-0400 Body xoxbhq694.6 cmIshmael Simon MD Work Phone: [facility] HospitalXgvluoomkn91-73-3616 09:20-0400Body mass index (BMI) [Ratio]39.31 kg/m2Ishmael Simon MD Work Phone: [facility] HospitalEesdjcmxpf41-30-5026 09:20-0400Body temperature 97.5 [degF]Ishmael Simon MD Work Phone: [facility] HospitalQtvecxpfou80-27-6727 09:20-0400Body sgubvf692.87 kgIshmael Simon MD Work Phone: [facility] HospitalVkowjvgusb40-87-8893 09:20-0400Diastolic blood wbrewtvj14 mm[Hg]Ishmael Simon MD Work Phone: noSSM Health CareWmfoquwfsr04-61-7787 09:20-0400Heart rate88 /min Ishmael Simon MD Work Phone: [facility] HospitalCzjkbuyrad18-20-5952 09:20-0400Respiratory rate18 /minIshmael Simon MD Work Phone: [facility] HospitalBgkmapeqxw08-08-3645 09:20-8634EoW4% (BldA) [Mass fraction]92 %Ishmael Simon MD Work Phone: [facility] HospitalJrwvwkjofy90-11-3806 09:20-0400Systolic blood xeyotzjs734 mm[Hg]Ishmael Simon MD Work Phone: [facility] HospitalIbpelwodzo07-71-4841 10:20-0400Body dglvie126.6 cmIshmael Simon MD Work Phone: [facility] HospitalJejkhyiohv92-84-2465 10:20-0400Body mass index (BMI) [Ratio]38.11 kg/m2Ishmael Simon MD Work Phone: [facility] HospitalClvlqvfmaz02-19-3343 10:20-0400Body temperature 97.5 [degF]Ishmael Simon MD Work Phone: [facility] HospitalYadzemjzgt71-76-3215 10:20-0400Body immwub028.7 kgIshmael Simon MD Work Phone: [facility] HospitalShaznvfkvv16-85-3404 10:20-0400Diastolic blood zzseyjre28 mm[Hg]Ishmael Simon MD Work Phone: [facility] HospitalDgngeohknn58-20-6791 10:20-0400Heart rate82 /min Ishmael Simon MD Work Phone: [facility] HospitalUrpjstirpo15-90-4973 10:20-0400Respiratory rate20 /minIshmael Simon MD Work Phone: [facility] HospitalAcbjzbjupl20-49-0619 10:20-2358SoQ6% (BldA) [Mass fraction]93 %Ishmael Simon MD Work Phone: [facility] HospitalIawpgnqiuz29-02-8021 10:20-0400Systolic blood oeccohga919 mm[Hg]Ishmael Simon MD Work Phone: [facility] HospitalEblwhowhdl59-33-4620 09:07-0500Body lhatlo441.6 cmValentino Ty MD Work Phone: 1(537)[address]02-05-2025 09:07-0500 Body mass index (BMI) [Ratio]36.39 kg/d9ZavqmgkValentino Ty MD Work Phone: 1(464)[address]02-05-2025 09:07-0500 Body jazvkj85.16 kgValentino Ty MD Work Phone: 1(882)[address]02-05-2025 09:07-0500 Diastolic blood mvlrxhyk74 mm[Hg]Valentino Ty MD Work Phone: 1(268)[address]02-05-2025 09:07-0500 Heart rate80 /minValentino Ty MD Work Phone: 1(241)[address]02-05-2025 09:07-0500 Systolic blood mm[Hg]Valentino Ty MD Work Phone: 1(499)[address]01-29-2025 09:47-0500 Body xtyarv097.6 cmIshmael Simon MD Work Phone: [facility] HospitalAelbkmqsfo23-97-0454 09:47-0500Body mass index (BMI) [Ratio]36.56 kg/m2Ishmael Simon MD Work Phone: [facility] HospitalFbmgarfutk93-46-7263 09:47-0500Body temperature 97.81 [degF]Ishmael Simon MD Work Phone: [facility] HospitalJmamlmlzcr68-07-4578 09:47-0500Body opzufw46.62 kgIshmael Simon MD Work Phone: [facility] HospitalWkisijsokk83-63-4881 09:47-0500Diastolic blood gclgtxes95 mm[Hg]Ishmael Simon MD Work Phone: [facility] HospitalSduuxfaylc05-43-3384 09:47-0500Heart rate85 /min Ishmael Simon MD Work Phone: [facility] HospitalQzvnuzrvkc89-98-4310 09:47-0500Respiratory rate22 /minIshmael Simon MD Work Phone: [facility] HospitalFfidyrjmlf42-83-8845 09:47-4375HvF3% (BldA) [Mass fraction]92 %Ishmael Simon MD Work Phone: [facility] HospitalAihaaeoolj43-62-2301 09:47-0500Systolic blood ynqrzhzy296 mm[Hg]Ishmael Simon MD Work Phone: 1(119)808-[address] [place], [place] [address]Wdalqdrlqi89-40-2121 08:30-0500Body qxpcya461.6 cmAregina Son MD Work Phone: 1(026)007-[address] [place], [place] 5765601-15-2025 08:30-0500 Body mass index (BMI) [Ratio]37.76 kg/w6MuduqgpAmador Son MD Work Phone: 1(651)987-[address] [place], [place] 5765601-15-2025 08:30-0500 Body tpmqnu28.79 kgAmador Son MD Work Phone: 1(975)[address]01-15-2025 08:30-0500 Diastolic blood axuzvdmp09 mm[Hg]Amador Son MD Work Phone: 1(222)447-[address] [place], [place] 5765601-15-2025 08:30-0500 Heart rate74 /minAmador Son MD Work Phone: 1(504)065-[address] [place], [place] 57[address]01-15-2025 08:30-0500 Systolic blood pansqtui768 mm[Hg]Amador Son MD Work Phone: 1(844)[address]12-17-2024 11:05-0500 Body sgahkr672.6 cmIshmael Simon MD Work Phone: 1(006)[address]3447[address] [place], [place] [address]Gjwqtfvnzx42-08-1253 11:05-0500Body mass index (BMI) [Ratio]37.76 kg/m2Ishmael Simon MD Work Phone: [facility] HospitalJtjwjgizfy45-82-4541 11:05-0500Body temperature 97.81 [degF]Ishmael Simon MD Work Phone: 1(989)303-[address] [place], [place] [address]Wzwoseoxta74-56-1961 11:05-0500Body rjtikc13.79 kgIshmael Simon MD Work Phone: 1(015)[facility] [place], [place] [address]Kiilghywre95-97-4107 11:05-0500Diastolic blood vffucnoq17 mm[Hg]Ishmael Simon MD Work Phone: 1(892)[address] [place], [place] 9813312-17-2024 11:05-0500Heart rate88 /min Ishmael Simon MD Work Phone: 1(733)[address] [place], [place] [address]Zvdvbtospz04-43-3065 11:05-0500Respiratory rate18 /minIshmael Simon MD Work Phone: 1(205)[facility] [place], [place] [address]Nmupushdoj05-97-2023 11:05-8204PyT4% (BldA) [Mass fraction]95 %Ishmael Simon MD Work Phone: 1(202)689-[address] [place], [place] [address]Dnpcbcwzgf06-53-9174 11:05-0500Systolic blood ndqjhdde324 mm[Hg]Ishmael Simon MD Work Phone: [facility] HospitalDhbxfryknj70-53-5280 13:14-0400Body oqiqri750.6 cmIshmael Simon MD Work Phone: 1(308)3-[address] [place], [place] [address]Xprkjwemqj77-83-7691 13:14-0400Body mass index (BMI) [Ratio]37.25 kg/m2Ishmael Simon MD Work Phone: [facility] HospitalOlmwtoizqv79-72-7589 13:14-0400Body temperature 97.5 [degF]Ishmael Simon MD Work Phone: [facility] HospitalSkkvyktffr80-27-5051 13:14-0400Body gmfamj74.43 kgIshmael Simon MD Work Phone: 1(799)488-[address] [place], [place] [address]Nhsqdckvai85-20-8328 13:14-0400Diastolic blood hpbrssux21 mm[Hg]Ishmael Simon MD Work Phone: [facility] HospitalPzvihkjkah72-74-1294 13:14-0400Heart rate84 /min Ishmael Simon MD Work Phone: [facility] HospitalLzlbcxeptm18-82-7889 13:14-0400Respiratory rate20 /minIshmael Simon MD Work Phone: [facility] HospitalTfdveurqab70-39-2060 13:14-8302SjT7% (BldA) [Mass fraction]97 %Ishmael Simon MD Work Phone: [facility] HospitalAollcegrsm10-03-0443 13:14-0400Systolic blood genhjufj727 mm[Hg]Ishmael Simon MD Work Phone: [facility] HospitalKcyojsjumt70-70-5509 09:29-0400Body usruyy198.6 cmIshmael Simon MD Work Phone: [facility] HospitalIeorejspmb48-05-2533 09:29-0400Body mass index (BMI) [Ratio]36.39 kg/m2Ishmael Simon MD Work Phone: [facility] HospitalLsgppfhvce71-88-5927 09:29-0400Body temperature 97.5 [degF]Ishmael Simon MD Work Phone: [facility] HospitalJzjmezyjvu04-68-8906 09:29-0400Body tvoikw24.16 kgIshmael Simon MD Work Phone: [facility] HospitalJaqbwkvavx36-76-0612 09:29-0400Diastolic blood agkuojjx08 mm[Hg]Ishmael Simon MD Work Phone: [facility] HospitalPvyqvymqvb98-49-0522 09:29-0400Heart rate91 /min Ishmael Simon MD Work Phone: [facility] HospitalGbrygokhez64-98-9571 09:29-0400Respiratory rate18 /minIshmael Simon MD Work Phone: [facility] HospitalKaoadgxnpp37-22-5321 09:29-0592AkI4% (BldA) [Mass fraction]97 %Ishmael Simon MD Work Phone: [facility] HospitalWzkglszniv66-12-9417 09:29-0400Systolic blood rnukrsmz883 mm[Hg]Ishmael Simon MD Work Phone: [facility] HospitalPrkizhjuub80-75-8365 09:57-0400Body xzaehv859.6 cmMiccasey Woodards DO Work Phone: [facility]07-31-2024 09:57-0400Body mass index (BMI) [Ratio]35.87 kg/c8Jbejvhi Grillis DO Work Phone: [facility]07-31-2024 09:57-0400Body hblsky02.8 kgMiccasey Mccormackillis DO Work Phone: [facility]07-31-2024 09:57-0400Diastolic blood mecgldcp25 mm[Hg]Roc Ramsey DO Work Phone: [facility]07-31-2024 09:57-0400Systolic blood fengqdce763 mm[Hg]Roc Ramsey DO Work Phone: [facility]07-03-2024 10:10-0400Body .6 cmTria Wright EDGE BANDING MACHINE OFFBEARER-POLITICAL THEORY PROFESSOR Work Phone: [facility]07-03-2024 10:10-0400 Body mass index (BMI) [Ratio]35.27 kg/x4PpxqcNaima Wright EDGE BANDING MACHINE OFFBEARER-POLITICAL THEORY PROFESSOR Work Phone: [facility]07-03-2024 10:10-0400 Body fpbple84.21 kgNaima Wright EDGE BANDING MACHINE OFFBEARER-POLITICAL THEORY PROFESSOR Work Phone: [facility]07-03-2024 10:10-0400 Diastolic blood ecusidaw08 mm[Hg]Naima Wright EDGE BANDING MACHINE OFFBEARER-POLITICAL THEORY PROFESSOR Work Phone: [facility]07-03-2024 10:10-0400 Heart rate68 /minNaima Wright EDGE BANDING MACHINE OFFBEARER-POLITICAL THEORY PROFESSOR Work Phone: 1(532)[address] [place], [place] [address]107-03-2024 10:10-0400 Systolic blood mhjukfse97 mm[Hg]Naima Adriana EDGE BANDING MACHINE OFFBEARER-POLITICAL THEORY PROFESSOR Work Phone: 1(497)[address]04-03-2024 13:31-0400 Body mjyoip466.6 cmAregina Son MD Work Phone: 1(725)[address]04-03-2024 13:31-0400 Body mass index (BMI) [Ratio]34.67 kg/j1YwyoscaAmador Son MD Work Phone: 1(999)[address]04-03-2024 13:31-0400 Body efzzup50.63 kgAmador Son MD Work Phone: 1(552)[address]04-03-2024 13:31-0400 Diastolic blood xyelcxbd12 mm[Hg]Amador Son MD Work Phone: 1(150)[address] [place], [place] 57[address]604-03-2024 13:31-0400 Heart rate69 /Delfina Son MD Work Phone: 1(369)[address]04-03-2024 13:31-0400 Systolic blood lhlcbcaj603 mm[Hg]Amador Son MD Work Phone: 1(790)[address]03-29-2024 17:30-0400 Diastolic blood mm[Hg]Amador Son MD Work Phone: 1(577)[address] [place], [place] 57[address]603-29-2024 17:30-0400 Heart rate60 /Delfina Son MD Work Phone: 1(307)[address] [place], [place] 57[address]603-29-2024 17:30-0400 Respiratory rate16 /Delfina Son MD Work Phone: 1(132)[address]03-29-2024 17:30-0400 SaO2% (BldA) [Mass fraction]96 %Amador Son MD Work Phone: 1(286)[address] [place], [place] 57[address]603-29-2024 17:30-0400 Systolic blood xtllybmk099 mm[Hg]Amador Son MD Work Phone: 1(268)[address]03-29-2024 12:13-0400 Body icmvuo777.6 Royer Son MD Work Phone: 1(307)[address]03-29-2024 12:13-0400 Body mass index (BMI) [Ratio]34.17 kg/z8GryejbrAmador Son MD Work Phone: 1(764)[address]03-29-2024 12:13-0400 Body omvlhwwnarw29.5 [degF]Amador Son MD Work Phone: 1(154)[address]03-29-2024 12:13-0400 Body tderfl94.3 kgAmador Son MD Work Phone: 1(209)[address]03-15-2024 14:38-0400 Body arerax863.6 Royer Son MD Work Phone: 1(368)[address]03-15-2024 14:38-0400 Body mass index (BMI) [Ratio]34.33 kg/g2EaeghvgAmador Son MD Work Phone: 1(918)[address]03-15-2024 14:38-0400 Body ajssyt72.72 kgAmador Son MD Work Phone: 1(242)[address]03-15-2024 14:38-0400 Diastolic blood qssokxvv82 mm[Hg]Amador Son MD Work Phone: 1(399)[address]03-15-2024 14:38-0400 Heart rate41 /minAmador Son MD Work Phone: 1(308)[address]03-15-2024 14:38-0400 Systolic blood ozlgfogv808 mm[Hg]Amador Son MD Work Phone: 1(390)[address]03-08-2023 10:57-0500 Body ifdwhx132.56 cmB[facility] West Butch Carterr Work Phone: 1(953) 567-1485497-7379CB-PycttBigfork Valley Hospitalk 600 DO Work Phone: 1(202) 116-538903-08-2023 10:57-0500Body mass index (BMI) [Ratio] 32.96 kg/m2Marc A MeMederer Work Phone: mp168-0650SH-CaxrjHutchinson Health Hospitalwalk 600 DO Work Phone: 1(122)783-82858-781951-29904913-73-5112 10:57-0500Body surface area Derived from formula1.92 m2Marc A Appoetr Work Phone: mp713-3524MB-FqxfmHutchinson Health Hospitalwalk 600 DO Work Phone: 1(200) 676-351503-08-2023 10:57-0500Body cfgvwi72.09 kgMarc A Appoetr Work Phone: mp035-2627GX-JwgauWelia Health 600 DO Work Phone: 1(481) 396-440003-08-2023 10:57-0500Diastolic blood mm[Hg] Ishmael A Appoetr Work Phone: mp806-3502XC-BlnquOwatonna Clinic 600 DO Work Phone: 1(956)998-34774-024315-31753749-97-0934 10:57-0500Heart rate34 /minMarc A Appoetr Work Phone: mp419-4814AM-YswmqOwatonna Clinic 600 DO Work Phone: 1(648) 710-182803-08-2023 10:57-0500Systolic blood rwrvyslm947 mm[Hg] Ishmael A Appoetr Work Phone: mp719-4985SV-BdnqeOwatonna Clinic 600 DO Work Phone: 1(918) 224-148209-22-2022 09:37-0400Body sygctp390.56 cmMarc A Naderer Work Phone: mp177-3027AO-YzeeoWelia Healthwalk 600 DO Work Phone: 1(708) 439-274509-22-2022 09:37-0400Body mass index (BMI) [Ratio]30.9 kg/m2Marc A MeMederer Work Phone: mp238-9401ST-Xzddb [facility] 600 DO Work Phone: 1(164) 993-519209-22-2022 09:37-0400Body surface area Derived from formula1.87 m2Marc A Naderer Work Phone: mp888-2337JJ-Wilpx [facility] [address] DO Work Phone: 1(206) 334-431509-22-2022 09:37-0400Body slhlfo33.65 kgMarc A Naderer Work Phone: mp298-0372LG-Zghgf [facility] 600 DO Work Phone: 1(666) 491-661509-22-2022 09:37-0400Diastolic blood roakyjcz03 mm[Hg] Ishmael Butch Naderer Work Phone: [phone]-Kqnqp [facility] DO Work Phone: 1(566) 845-708409-22-2022 09:37-0400Heart rate41 /minMarc A Naderer Work Phone: [phone]-Pdock [facility] Work Phone: 1(198) 372-578709-22-2022 09:37-0400Systolic blood mm[Hg] Ishmael Butch Naderer Work Phone: [phone]-Wyzzt [facility] DO Work Phone: Encounters Encounter DateEncounter [facility] ProviderFacilityStart: 03-07-2025 End: 28-98-6319Jellmjamij hospital visit by physicianEly Device [facility]ender [facility] HospitalComment on above:Cardiac pacemaker in situStart: 03-07-2025 End: 31-35-0661sbictdglluLUTHPVCSelect Medical Specialty Hospital - Trumbulltart: 02-11-2025 End: 40-29-8532sohzcpjnezSMFTESRGKettering Health Washington Townshiptart: 02-11-2025 End: 31-01-9843ddhnfnyfatTJBYFSRVAultman Alliance Community Hospitaltart: 02-05-2025 End: 03-39-1570obnwhzzgxrDXOJESMHKettering Health Washington Townshiptart: 12-24-2024 End: 41-97-9220Yjldsl Jarred Simon MD Work Phone: noms CWM FMStart: 12-24-2024 End: 95-67-8179Pytgmvoniel Simon MD Work Phone: [facility] CWM FMStart: 12-24-2024 End: 29-70-0106Hoqtey outpatient visit 25 minutesIshmael Simon MD Work Phone: noms CWM FMComment on above:Type 2 diabetes mellitus with hyperglycemia, without long-term current use of insulin (HCC) (Primary Dx); Essential hypertension, benign ; Degeneration of intervertebral disc of lumbar region with discogenic back pain and lower extremity pain; Chronic diastolic heart failure (HCC)Start: 12-24-2024 End: 73-21-7051hfvlfhhjmkFEPU NADERERNot AvailableStart: 12-17-2024 End: 07-75-3286MumtbvEacm Naderer MD Work Phone: noms CWM FMComment on above:Degeneration of lumbar intervertebral discStart: 11-28-2024 End: 46-19-1613Tdqpoq outpatient visit 25 minutesAmador Son MD Work Phone: [facility] CenterComment on above:Cardiac pacemaker in situ (Primary Dx); Chronotropic incompetence; Sick sinus syndrome (Multi); Essential hypertension, benign; Pacemaker; Sinus bradycardia; Former smoker; BMI 38.0-38.9,adultStart: 11-28-2024 End: 69-29-2962irincptpzlFXEMLKU N [facility] [facility] AmbulatoryStart: 11-28-2024 End: 39-11-9794Vdjdogevli hospital visit by physicianE[facility] 2 [facility] HospitalComment on above:Cardiac pacemaker in situStart: 11-15-2024 End: 66-91-6822TumbpxKajs Naderer MD Work Phone: noms CWM FMComment on above:Degeneration of lumbar intervertebral discStart: 11-05-2024 End: 93-06-8769dxlckrxucfTvujgkzJessica Reyes MDFacility:PM [facility] Start: 10-23-2024 End: 68-99-6838Kqfbif Jarred Simon MD Work Phone: NOMS CWM FMStart: 10-23-2024 End: 81-04-0893Rvddvp flowsDanny Simon MD Work Phone: NOFB CWM FMStart: 10-23-2024 End: 39-16-7174Mbtxdwogi Result EncounterIshmael Simon MD Work Phone: NODI External Department UnsolicitedStart: 10-23-2024 End: 56-88-3213Irekht outpatient visit 25 minutesIshmael Simon MD Work [...] index (BMI) of39.0 to 39.9 in adult ([facility]); Encounter for long-term (current) use of medications; Screening PSA (prostate specific antigen); Vitamin D insufficiency; DyslipidemiaStart: 10-23-2024 End: 23-08-0204uunezhvwbbFRGM NADERERNot AvailableStart: 10-18-2024 End: 54-58-8957CznbyyQxtu Naderer MD Work Phone: NOMS CWM FMComment on above:Degeneration of lumbar intervertebral discStart: 09-19-2024 End: 13-70-6107RxgshkLtwr Naderer MD Work Phone: NOMS CWM FMComment on above:Degeneration of lumbar intervertebral discStart: 08-29-2024 End: 18-84-8584GpzmasMumy Naderer MD Work Phone: [phone] CWM FMComment on above:Carpal tunnel syndrome, bilateral upper limbs; Carpal tunnel syndromeStart: 08-28-2024 End: 86-34-9848lnpsivccmbLQEFNFHSelect Medical Specialty Hospital - Trumbulltart: 08-28-2024 End: 65-11-4144Osaraqzkui hospital visit by physicianEly Device RemoteSouthwest Memorial HospitalComment on above:Cardiac pacemaker in situStart: 08-22-2024 End: 92-91-3935XjxfzaLjon Naderer MD Work Phone: noms CWM FMComment on above:Degeneration of lumbar intervertebral discStart: 08-09-2024 End: 85-64-4948Arevcvmfy Result EncounterGeneric External Data ProviderNOMS External Department UnsolicitedStart: 08-09-2024 End: 43-21-2996Whcxirsmj Result EncounterGeneric External Data ProviderNOMS External Department UnsolicitedStart: 08-06-2024 End: 77-76-7319pjjqmzehhyNahwikq Vytautas Giedraitis MDFacility:PM [place] Start: 07-23-2024 End: 03-36-6173Oktgjk outpatient visit 25 minutesIshmael Simon MD Work [...] Degeneration of lumbar intervertebral discStart: 07-23-2024 End: 67-47-9377zcalpsazacWKIW NADERERNot AvailableStart: 06-26-2024 End: 02-33-6674YqdsncQjaa Naderer MD Work Phone: noms CW FMComment on above:Degeneration of lumbar intervertebral discStart: 06-14-2024 End: 25-90-5394Fjjszzclq Result EncounterGeneric External Data ProviderNOMS External Department UnsolicitedStart: 06-14-2024 End: 11-94-4982Xysfptmoo Result EncounterGeneric External Data ProviderNOMS External Department UnsolicitedStart: 06-13-2024 End: 11-40-3276Vnkpyj outpatient visit 25 minutesValentino Ty MD Work Phone: [facility] CenterComment on above:Sick sinus syndrome (Multi) (Primary Dx); Chronotropic incompetence; Peripheral vascular disease, unspecified (CMS-HCC); Pacemaker; Essential hypertension, benign; Sinus bradycardia; Hyperlipidemia, unspecified hyperlipidemia type; Dyspnea on exertion; BMI 37.0-37.9, adult; Former smoker; Mild coronary artery diseaseStart: 06-13-2024 End: 02-83-7628kiersinopkKMZMZZOJackson [facility] Center AmbulatoryStart: 06-06-2024 End: 52-03-0442Lobprboniel Simon MD Work Phone: noms CW FMStart: 06-06-2024 End: 47-28-5109Mxtjitoniel Simon MD Work Phone: noms CW FMStart: 06-06-2024 End: 74-26-7369Gsykcb outpatient visit 15 minutesIshmael Simon MD Work Phone: noms CW FMComment on above:Chronic obstructive pulmonary disease with acute exacerbation (CMS/HCC) (Primary Dx); Chronic hypoxic respiratory failure (CMS/HCC); Class 2 severe obesity due to excess calories with serious comorbidity and body mass index (BMI) of36.0 to 36.9 in adult (CMS/HCC); Essential hypertension, benign (CMS/HCC)Start: 06-06-2024 End: 70-75-9476hxrpcnppvhTMFT NADERERNot AvailableStart: 05-29-2024 End: 64-10-1641XdezdjYlid Naderer MD Work Phone: NOMS CWM FMComment on above:Degeneration of lumbar intervertebral discStart: 05-28-2024 End: 61-40-1933HxuwclBuge Howard MANOMS CWM FMComment on above:Degeneration of lumbar intervertebral discStart: 05-27-2024 End: 68-65-0075Ndcrpjali Result EncounterGeneric External Data ProviderNOMS External Department UnsolicitedStart: 05-27-2024 End: 78-00-9082Fqztjjkvq Result EncounterGeneric External Data ProviderNOMS External Department UnsolicitedStart: 05-23-2024 End: 78-37-7156Nwffyt outpatient visit 25 minutesAmador Son MD Work Phone: [facility] CenterComment on above:Cardiac pacemaker in situ (Primary Dx); Sick sinus syndrome (Multi); MRI safe cardiac pacemaker in situ; Abnormal EKG; Chronotropic incompetence; Sinoatrial node dysfunction (Multi); Sinus bradycardia; Current smoker; BMI 37.0-37.9, adultStart: 05-23-2024 End: 65-77-8109Rsrcqwduzc hospital visit by physicianE[facility] [address] [place], [place] [address]Comment on above:Sinus bradycardia; Sick sinus syndrome (Multi); Chronotropic incompetence; MRI safe cardiac pacemaker in situStart: 05-23-2024 End: 15-72-2135qdhuoozhmwKNPDOQH N DIAZCincinnati Va [facility] Center AmbulatoryStart: 04-27-2024 End: 23-52-0816FcrmxhDuny Naderer MD Work Phone: NOMS CWM FMComment on above:Degeneration of lumbar intervertebral discStart: 04-24-2024 End: 93-62-2679Sbghfroniel Simon MD Work Phone: NOMS CWM FMStart: 04-24-2024 End: 23-58-9431Vyiqlkoniel Simon MD Work Phone: OMZS CWM FMStart: 04-24-2024 End: 63-74-7047Mrxfvgdob Result EncounterIshmael Simon MD Work Phone: noms External Department UnsolicitedStart: 04-24-2024 End: 94-04-9529Aorwvur encounter procedureIshmael Simon MD Work Phone: [facility] Work Phone: Start: 04-24-2024 End: 76-96-9540Znsnke follow up visit related to original Kesha Simon MD Work Phone: noms CWM FMComment on above:Medicare annual wellness visit, subsequent (Primary Dx); Type 2 diabetes mellitus with hyperglycemia, without long-term current use of insulin (CMS/HCC); Essential hypertension, benign (CMS/HCC); Class 2 severe obesity due to excess calories with serious comorbidity and body mass index (BMI) of37.0 to 37.9 in adult (CMS/HCC)Start: 04-24-2024 End: 43-15-1025bzjqobutsuTFIU NADERERNot AvailableStart: 04-16-2024 End: 92-96-6804dvsxnoptpxKtzzycgJessica Reyes MDFacility:PM [facility] Start: 03-30-2024 End: 27-60-8838BrwoqfCtoe Naderer MD Work Phone: noms CWM FMComment on above:Degeneration of lumbar intervertebral discStart: 03-27-2024 End: 77-41-7326Qxvhbai encounter procedureIshmael Simon MD Work Phone: [facility] [place] Work Phone: Start: 03-27-2024 End: 16-04-9250djxwgeuuciYgve Naderer MD Work Phone: [facility] Work Phone: Start: 03-16-2024 End: 20-42-0401fxdcljjfopMnbq E GantzFacility:[facility] Start: 09-59-8832Dea-patient / Non-visitCarolinas Continue[facility] Rhythm ClinicStart: 03-01-2024 End: 40-03-1009KhvpxcYjlt Naderer MD Work Phone: NOMS CWM FMComment on above:Degeneration of lumbar intervertebral discStart: 02-14-2024 End: 49-17-7102Agfiwmsdya hospital visit by physicianEly Device [facility] HospitalComment on above:Cardiac pacemaker in situ; Sinoatrial node dysfunction (Multi)Start: 02-06-2024 End: 93-45-1885Cooblu Jarred Simon MD Work Phone: NOCX CWM FMStart: 02-06-2024 End: 97-98-3162Wsqhfg Jarred Simon MD Work Phone: noms CWM FMStart: 02-06-2024 End: 99-43-1847Vgoyyfhug Result Austin Simon MD Work Phone: noms External Department UnsolicitedStart: 02-06-2024 End: 48-13-9676pylzogglnmRSJZ NADERERNot AvailableStart: 02-06-2024 End: 38-91-8848Moteyk outpatient visit 15 minutesIshmael Simon MD Work Phone: noms CWM FMComment on above:Dysuria (Primary Dx); Acute prostatitis; PyuriaStart: 02-02-2024 End: 52-44-4536GtbpocGgxb Naderer MD Work Phone: NOMS CWM FMComment on above:Other intervertebral disc degeneration, lumbar region; Degeneration of lumbar or lumbosacral intervertebral discStart: 01-27-2024 End: 24-60-6577ZrxcjiYvno Naderer MD Work Phone: NOVI CWM FMComment on above:Degeneration of lumbar intervertebral discStart: 01-25-2024 End: 70-20-2761Ruzzohjtyy hospital visit by physicianEly Device [facility] HospitalComment on above:Cardiac pacemaker in situ; Sinoatrial node dysfunction (Multi)Start: 01-13-2024 End: 94-22-0509Ucbhgtoniel Simon MD Work Phone: noms CWM FMStart: 01-13-2024 End: 27-77-9929Cvnprwoniel Simon MD Work Phone: noms CWM FMStart: 01-13-2024 End: 93-84-8941Tzoexb outpatient visit 25 minutesIshmael Simon MD Work Phone: noms CWM FMComment on above:Type 2 diabetes mellitus with hyperglycemia, without long-term current use of insulin (CMS/HCC) (Primary Dx); Essential hypertension, benign (CMS/HCC); Chronic diastolic heart failure (CMS/HCC); Chronic obstructive pulmonary disease, unspecified COPD type (CMS/[facility]); DDD (degenerative disc disease), lumbar; Primary osteoarthritis of right hip; Body mass index (BMI) 35.0-35.9, adultStart: 01-13-2024 End: 84-75-7397yjubunqbygAGIW NADERERNot AvailableStart: 12-30-2023 End: 62-43-4505SrxincRynn Naderer MD Work Phone: noms CWM FMComment on above:Degeneration of lumbar intervertebral discStart: 12-26-2023 End: 49-69-0485Pxlrguqox encounterSheri Chau [facility] Physicians General SurgeryStart: 12-14-2023 End: 55-89-5565Ltkaxc Fabián Chau [facility] Comment on above:Claudication ([facility]) (Primary Dx)Start: 12-07-2023 End: 08-94-2688Sxwefi outpatient visit 25 minutesRoc Ramsey DO Work Phone: [facility] Physicians General SurgeryComment on above: Right leg pain (Primary Dx); Tobacco abuse; Class 3 severe obesity due to excess calories with serious comorbidity in adult, unspecified BMI (CMS-HCC); Left inguinal hernia; Claudication (CMS-HCC)Start: 11-09-2023 End: 39-18-7362Siwcnyhkt Result EncounterGeneric External Data ProviderNOMS External Department UnsolicitedStart: 11-09-2023 End: 41-44-1557Wkclkuoqb Result EncounterGeneric External Data ProviderNOMS External Department UnsolicitedStart: 11-09-2023 End: 96-68-5247Xiibih outpatient visit 40 minutesNaima MURILLO Work Phone: [facility] CenterComment on above:MRI safe cardiac pacemaker in situ (Primary Dx); Sinus bradycardia; Sick sinus syndrome (Multi); Chronotropic incompetence; Chronic diastolic heart failure (Multi); Essential hypertension, benign; Peripheral vascular disease, unspecified ([facility]); Chronic obstructive pulmonary disease, unspecified COPD type ([facility]); Dyspnea on exertion; Obstructive sleep apnea (adult) (pediatric); Current smokerStart: 11-09-2023 End: 83-64-4337Hsizahgrop hospital visit by [facility] [address] [place], [place] [address]Comment on above:PacemakerStart: 10-11-2023 End: 17-58-1108Ijvryjquh Result EncounterIshmael Simon MD Work Phone: noms External Department UnsolicitedStart: 10-11-2023 End: 44-74-6852Svuulfyta Result EncounterIshmael Simon MD Work Phone: noms External Department UnsolicitedStart: 09-26-2023 End: 61-34-5559Jlqqivevxg hospital visit by Andrei Device [facility] HospitalComment on above:Cardiac pacemaker in situ; Sinoatrial node dysfunction (Multi)Start: 08-10-2023 End: 93-41-4312Ncuaelwobj hospital visit by Andrei Ultrasound [address] [place], [place] [address]Comment on above:Localized swelling on left hand; S/P placement of cardiac pacemakerStart: 08-10-2023 End: 90-06-7796Mvugrfwsr Result EncounterGeneric External Data ProviderNOMS External Department UnsolicitedStart: 08-10-2023 End: 12-30-6264Zwvfnryrx Result EncounterGeneric External Data ProviderNOGA External Department UnsolicitedStart: 08-10-2023 End: 19-99-0594Ewkqer outpatient visit 25 minutesAmador Son MD Work Phone: uh [facility] HospitalComment on above:Chronotropic incompetence (Primary Dx); Abnormal stress test; Sinus bradycardia; Sick sinus syndrome (CMS/HCC); Essential hypertension, benign; BMI 34.0-34.9,adult; Current smokerStart: 08-05-2023 End: 30-96-3925Pizbuqnerc hospital visit by physicianAmador Son MD Work Phone: uh [facility] HealthComment on above:Sinus bradycardia (Primary Dx); Chronotropic incompetence; Sick sinus syndrome (CMS/HCC); Other fatigue; Abnormal stress test; Dyspnea; PacemakerStart: 07-22-2023 End: 14-64-7218Wuzhwo outpatient new 60 minutesAmador Son MD Work Phone: uh [facility] HospitalComment on above:Chronotropic incompetence (Primary Dx); Sinus bradycardia; Establishing care with new doctor, encounter for; BMI 34.0-34.9,adult; Sick sinus syndrome (CMS/HCC); Simple chronic bronchitis (CMS/HCC); Current smoker; Other fatigue; Preoperative cardiovascular examinationStart: 07-22-2023 End: 37-64-9093Ibptrrj encounter statusAmador Son MD Work Phone: [facility] Work Phone: Start: 82-56-7691yomvbgeiuiCEGKPHXSYWLP LAKSHMIPATHY . Facility:Q0Jpvuj: 09-14-2022 End: 41-89-0421edtdaicmgePZOIDUALTPDI LAKSHMIPATHY .Facility:N8Eivuz: 08-31-2022 End: 33-30-6430vojvwionylMONBPQOZXDEN LAKSHMIPATHY .Facility:U8Abvgh: 08-04-2022 End: 39-30-6341edyoxjpxulDSYGMKKLHFVQ LAKSHMIPATHY .Facility:K1Kglra: 07-23-2022 End: 33-21-5979aqtigcznafBNPPMQEWSJUP LAKSHMIPATHY .Facility:L3Svjyy: 07-20-2022 End: 42-73-6268jsgwshwiwoJMMVLLTMPSJB LAKSHMIPATHY .Facility:E8Jrfid: 07-15-2022 End: 19-95-6213yerccjgsvgSUHRIP KHANH .Facility:N2Opewz: 99-04-9215Rkpyws outpatient visit 15 minutesMarc A Naderer Work Phone: [phone]-AecfqWelia [facility] 600 DO Work Phone: Start: 90-12-3333kuimslnykyXx. Valentino Ty Facility:[address]Gsghd: 82-96-8144tihghfpifcLZ RICKY IBARRA .Facility:D9Agvtk: 06-11-2022 End: 96-14-6923ihedwqujahPW ISHMAEL Rae NADERERFacility:M5Hphcj: 05-07-2022 End: 27-43-2615kpzkuhkcxyCA ISHMAEL Rae NADERERFacility:X9Swnvj: 05-07-2022 End: 32-89-4999umobhckgorXQ ISHMAEL Rae NADERERFacility:C1Dstpe: 04-12-2022 End: 23-36-9239frpfwayojoNF ISHMAEL Rae NADERERFacility:L7Oxgze: 53-02-1388Jyixt UpdateMarc A Naderer Work Phone: [phone]-ZhhhjPhillips Eye Institute 250 DO Work Phone: Start: 01-71-0067qqikkyffwrZb. Valentino Ty Facility:[id number]: 71-29-3664yhxaspjvalDz. Ishmael Vallejo NadererFacility: Start: 40-89-1652Vdboxa consultation new/estab patient 60 minMarc A Naderer Work Phone: [phone]-FewyrWelia Health 600 DO Work Phone: Start: 01-14-2022 End: 97-65-4082utfvkdqxhpHJNT SOLIS .Facility:X0Oawsy: 01-01-2022 End: 77-17-0582wwkudgbpkxXW ISHMAEL Rae NADERERFacility:E0Zmfbv: 12-15-2021 End: 19-50-4410xiwdnksuvnUN RICKYGRICELDA IBARRA .Facility:V6Sqedl: 64-49-8955Sclhsawnu for preprocedural laboratory examinationDR RICKY IBARRA .[facility] Start: 12-12-2021 End: 89-52-2112zscqkpemgcLV ISHMAEL Rae NADERERFacility:H8Qefsf: 12-12-2021 End: 13-30-3531Lqofrwbfg for preprocedural laboratory examinationDR ISHMAEL Rae NADERERFacility:Q9Hnbdj: 12-08-2021 End: 04-51-2581guypxnncvmMH RICKY IBARRA .Facility:S2Dbjhg: 12-04-2021 End: 11-34-1400kndnvyylglAW ISHMAEL Rae NADDIEGORFacility:Y2Udruz: 11-19-2021 End: 74-73-4500wndjyktipzPFOD COLMENARES .Facility:X6Ktfpx: 11-03-2021 End: 59-43-8501qoqxfmpdjmED RICKY IBARRA .Facility:O9Xtnml: 10-22-2021 End: 71-04-0274lngnjccvfqEJ RICKY IBARRA .Facility:R9Bfhgz: 10-13-2021 End: 86-03-2164vejrsxcbevZY RICKY S IBARRA .Facility:Z0Askuy: 10-01-2021 End: 30-90-7255qcrdsiebbgLTCN COLMENARES .Facility:W9Efuut: 10-01-2021 End: 11-75-1602xqubqhwpdjWZUF SOLIS .Facility:K5Ologb: 10-03-2020 End: 58-68-2922wusoyyfalnLPRL BOSWELLFacility:[facility]tart: 03-26-2020 End: 10-01-1159lmmbtqavpbQYIGG R HANNAFacility:[facility]tart: 03-14-2020 End: 15-30-5687jexqqxpmpsZPSXN R HANNAFacility:[facility] Procedures DateProcedureProcedure DetailPerforming ClinicianStart: 12-13-8689Lod interrog pm/ldls pm/ids <90 d tech reviewAltaz Son MD Work Phone: Start: 69-36-0770Ncu routine ecg w/least 12 lds w/i&r Amador N Son MD Work Phone: Start: 28-20-5666Uvcgswz eval implantable in persn dual ld Medina Son MD Work Phone: Start: 38-23-8179PSX CBC WITH AUTO DIFFMarpraveena Simon MD Work Phone: Start: 80-49-4913Xzi interrog pm/ldls pm/ids <90 d tech reviewAltaz Son MD Work Phone: Start: 99-49-1423PI LUNG SCREENING LOW DOSEGeneric External Data ProviderStart: 82-35-9623HIZ BASIC METABOLIC PANELGeneric External Data ProviderStart: 99-49-0487OBH LIPID PROFILE (FASTING)Generic External Data ProviderStart: 40-99-4215XLT ALTGeneric External Data ProviderStart: 06-14-2024 CCF ASTGeneric External Data ProviderStart: 27-13-8349Opjcewgint cells LM Ql (Urine sed)Generic External Data ProviderStart: 35-47-1566XBCG STAIN EVALUATION Generic External Data ProviderStart: 36-42-0487Idebykakag [#/volume] in Blood Generic External Data ProviderStart: 46-14-3381MCJCV RESPIRATORY CULTUREGeneric External Data ProviderStart: 24-86-1295NDXRFV 1Generic External Data Provider Start: 01-24-8358XUQPHF 2Generic External Data ProviderStart: 40-95-2060HOXVVO 3 Generic External Data ProviderStart: 27-57-2115RGTKCS 4Generic External Data ProviderStart: 92-08-2248Qjg routine ecg w/least 12 lds w/i&Ana María Son MD Work Phone: Start: 78-55-9990Qqrktvt eval implantable in persn dual ld Lester Wright EDGE BANDING MACHINE OFFBEARER-POLITICAL THEORY PROFESSOR Work Phone: Start: 71-61-6555ZLQ HEMOGLOBIN K8FYpbiIshmael Simon MD Work Phone: Start: 24-29-3941MZ lumbar spine wo conIshmael Simon MD Work Phone: Start: 58-64-7708YG pre/post mri xrayIshmael Simon MD Work Phone: Start: 94-49-4731Mnu interrog pm/ldls pm/ids <90 d tech reviewAmador Son MD Work Phone: Start: 48-46-8555HEY UA (CLEAN/CATCH) MICROSCOPIC IF INDICATEIshmael Simon MD Work Phone: Start: 69-65-8689Ewu routine ecg w/least 12 lds w/i&r Naimadaniel Wright EDGE BANDING MACHINE OFFBEARERMerchant ExchangeCAMBRIDGE HOSPITAL Work Phone: Start: 77-43-1420BY CHEST 2 VIEWS PA/LATGeneric External Data ProviderStart: 04-99-9251Nnpibji eval implantable in persn dual ld paceLawrence Dodge Quoc [facility] AT SURPRISEMerchant ExchangeCAMBRIDGE HOSPITAL Work Phone: Start: 28-75-4532Mfpgv shoulder complete minimum 2 viewsIshmael Simon MD Work Phone: Start: 71-00-0460GPVUIUH DEVICE CHECK - REMOTEAltaz Son MD Work Phone: Start: 08-10-2023 End: 82-76-9357Hwv-scan xtr veins unilateral/limited studyTradaniel Wright EDGE BANDING MACHINE OFFBEARER-[facility] Work Phone: Start: 52-63-5884Rzvpplxaaf exam chest single viewAna M Echo Quoc EDGE BANDING MACHINE OFFBEARER-[facility] Work Phone: Start: 60-56-1319Hmu routine ecg w/least 12 lds trcg only w/o i&Lawrence Echo EDGE BANDING MACHINE OFFBEARER-[facility] Work Phone: Start: 36-67-9637Qrelnyijjphyokglk studyAmador Son MD Work Phone: Start: 87-12-9029Fsrp tthrc r-t 2d w/wom-mode compl spec&colr Nadege Angel [facility] AT SURPRISEMerchant ExchangeCAMBRIDGE HOSPITAL Work Phone: Start: 74-97-1695Gaj routine ecg w/least 12 lds trcg only w/o i&Lawrence Echo Stanley EDGE BANDING MACHINE OFFBEARER-POLITICAL THEORY PROFESSOR Work Phone: Start: 75-85-8559Qscsd metabolic panel calcium total Ana M Echo Barrettcrys ED[employer] BANDING MACHINE OFFBEARER-POLITICAL THEORY PROFESSOR Work Phone: Start: 91-74-6790Lrp routine ecg w/least 12 lds w/i&r Amador Son MD Work Phone: Start: 45-99-6241UVT screeningDR ISHMAEL NADERERComment on above:Performed By: #### VITAD, PSASC #### [facility] [address] [place] [address] Dr. Britt MendozaStart: 55-89-3187RTHBBY HIP ARTHROPLASTYSIMONE BOSWELLStart: 73-33-7927OANGL HIP ARTHROPLASTYMAGED R HANNAStart: 47-49-2012Aiqtncoi screen SIMONE Leal on above:Performed By: #### [id number] ####[facility] [place] [address], USAStart: 08-24-[address] Work Phone: ColonoscopyMarc A Naderer Work Phone: Excision of cystMarc A Naderer Work Phone: Hernia repairMarc A Naderer Work Phone: Operation on urinary systemMarc A Naderer Work Phone: Surgical repair of upper extremityMarc A Naderer Work Phone: Total replacement of hipMarc A Naderer Work Phone: Plan of Treatment DateCare ActivityDetailAuthorStart: 29-62-6027Xgzjjuoys for malignant neoplasm of colonNOMS HealthcareStart: 39-01-2083Mznibdqz screeningDiabetes: Retinopathy ScreeningNOMS HealthcareStart: 97-98-0703Sedxf screening for proteinDiabetes: Urine Protein ScreeningNOGA HealthcareStart: 06-04-2025 End: 25-23-9724Mredcoc encounter procedureSt. [facility] Hospital Districttart: 05-15-2025 End: 19-89-2288Tsteyll encounter tqluslvwf46/07/2026 8:40 AM EST Office Visit [address] [place] [phone] Valentino Ty MD [address] [facility], [address] [place] [address] [facility] CenterStart: 04-26-2025 End: 47-35-1926Pimolhu encounter uctptkpmw40/19/2025 9:30 AM EST Office Visit [facility] [address] [place] [phone] Ishmael Simon MD [address] [place] [phone] [facility] FMStart: 12-17-2025Medicare Annual Wellness (AWV)Medicare Annual Wellness (AWV)NOM HealthcareStart: 85-85-5959Ehibskmokf A1c measurement Diabetes: Hemoglobin C9SCVXX HealthcareStart: 51-64-8204XXOLA-19 Vaccine ( season)COVID-19 Vaccine ( season)[facility] HospitalStorlando: 19-94-9791Wvgxlzwxo vaccinationNOGA HealthcareStart: 12-24-2024 End: 51-22-8042Ynynpog encounter procedureNOGA CWM FMComment on above:Arrived Start: 22-23-8700Prtjrbugh vaccinationInfluenza Vaccine (#1)[facility]: 59-68-5565Wzpwn BMI ScreeningAdult BMI ScreeningLima City Hospital SystemStart: 60-19-8080Dunggxd ScreeningTobacco ScreeningLima City Hospital SystemStart: 11-28-2024 End: 72-46-8446Xrllylc encounter procedureCentral Kansas Medical Centertart: 11-21-2024 End: 28-91-7495Uytsblw encounter gxthbuour82/16/2025 8:00 AM EDT Appointment [facility] [address] [place] [phone] [facility] Hospitaltart: 10-23-2024 End: 825487-rxfcmhzyqecaxy D3 [Mass/volume] in Serum or PlasmaVitamin D 25 hydroxy Lab Routine Vitamin D insufficiency Expected: 10/23/2024 (Approximate), Expires: 10/23/2025[facility] Healthcare Work Phone: Comment on above:Expected: 10/23/2024 (Approximate), Expires: 10/23/2025Start: 10-23-2024 End: 93-74-7435Njiwx metabolic 1998 panel - Serum or PlasmaBasic metabolic panel Lab Routine Essential hypertension, benign Expected: 10/23/2024 (Approximate), Expires: 10/23/2025[facility] HealthcareComment on above:Expected: 10/23/2024 (Approximate), Expires: 10/23/2025Start: 10-23-2024 End: 20-10-9653YKB W Auto Differential panel - BloodCBC and differential Lab Routine Encounter for long-term (current) use of medications Expected: 10/07 (Approximate), Expires: 10/23/2025[facility] HealthcareComment on above: Expected: 10/23/2024 (Approximate), Expires: 10/23/2025Start: 10-23-2024 Hemoglobin A1c measurementDiabetes: Hemoglobin C6TPKEVChildren's Mercy HospitalStart: 10-23-2024 End: 20-03-2724Dwzqawhezs A1c/Hemoglobin.total in BloodHemoglobin A1c Lab Routine Type 2 diabetes mellitus with hyperglycemia, without long-term current use of insulin (HCC) Expected: 10/23/2024 (Approximate), Expires: 10/23/2025[facility] HealthcareComment on above:Expected: 10/23/2024 (Approximate), Expires: 10/23/2025Start: 10-23-2024 End: 25-67-0559Ltqkpct function 2000 panel - Serum or PlasmaHepatic function panel Lab Routine Encounter for long-term (current) use of medications Expected: 10/23/2024 (Approximate), Expires: 10/23/2025NOGA HealthcareComment on above: Expected: 10/23/2024 (Approximate), Expires: 10/23/2025Start: 10-23-2024 End: 27-61-3061Yfiqa 1996 panel - Serum or PlasmaLipid panel Lab Routine Dyslipidemia Expected: 10/23/2024 (Approximate), Expires: 10/23/2025NOGA HealthcareComment on above:Expected: 10/23/2024 (Approximate), Expires: 10/23/2025Start: 10-23-2024 End: 62-68-7996Neftaltl specific Ag [Mass/volume] in Serum or PlasmaPSA Lab Routine Screening PSA (prostate specific antigen) Expected: 10/23/2024 (Approximate), Expires: 10/23/2025[facility] HealthcareComment on above:Expected: 10/23/2024 (Approximate), Expires: 10/23/2025Start: 10-23-2024 End: 20-97-3993Bzupeknslfo [Units/volume] in Serum or PlasmaTSH Lab Routine Class 2 severe obesity due to excess calories with serious comorbidity and body mass index (BMI) of 39.0 to 39.9 in adult ([facility]) Expected: 10/23/2024 (Approximate), Expires: 10/23/2025[facility] HealthcareComment on above:Expected: 10/23/2024 (Approximate), Expires: 10/23/2025Start: 10-23-2024 End: 13-47-4967Fwlyirx encounter procedureNOMS CWM FMComment on above:Arrived Start: 29-08-2376Zilodqvocw measurementCreatinine LevelUnBucyrus Community Hospital: 72-28-7682SuiurjckimqjednoSiveuwsxwvtqgtNckamwgxeo Hospit[facility] ClevelandStart: 89-65-6291Whqgmvtpj measurementPotassium LevelUnBucyrus Community Hospital: 07-23-2024 End: 03-90-1181Eddsrssdtkop/Creatinine panel in random UrineMicroalbumin / creatinine, urine ratio Lab Routine Type 2 diabetes mellitus with hyperglycemia, without long-term current use of insulin ([facility]) Expected: 07/23/2024 (Approximate), Expires: 07/23/2025[facility] Work Phone: Comment on above:Expected: 07/23/2024 (Approximate), Expires: 07/23/2025Start: 07-23-2024 End: 51-92-9198Uutcsno encounter nnugspzal19/17/2025 10:15 AM EDT Office Visit [facility] [address] [place] [address] Ishmael Simon MD [address] [place] [place] [phone] [facility] MIAH FMStart: 06-13-2024 End: 77-98-8554Sezfxwm aminotransferase [Enzymatic activity/volume] in Serum or Plasma by With P-5'-PAlanine Aminotransferase Lab Routine Hyperlipidemia, unspecified hyperlipidemia type Expected: 06/13/2024 (Approximate), Expires: 06/13/2025[facility] Service Area Work Phone: Comment on above:Expected: 06/13/2024 (Approximate), Expires: 06/13/2025Start: 06-13-2024 End: 64-13-0687Mnobsvvds aminotransferase [Enzymatic activity/volume] in Serum or Plasma by With P-5'-PAspartate Aminotransferase Lab Routine Hyperlipidemia, unspecified hyperlipidemia type Expected: 06/13/2024 (Approximate), Expires: 06/13/2025[facility] Work Phone: Comment on above:Expected: 06/13/2024 (Approximate), Expires: 06/13/2025Start: 06-13-2024 End: 13-21-8784Aobim metabolic 2000 panel - Serum or PlasmaBasic Metabolic Panel Lab Routine Essential hypertension, benign Expected: 06/13/2024 (Approximate), Expires: 06/13/2025[facility] Work Phone: Comment on above:Expected: 06/13/2024 (Approximate), Expires: 06/13/2025Start: 06-13-2024 End: 75-41-2415Erfye 1996 panel - Serum or PlasmaLipid Panel Lab Routine Hyperlipidemia, unspecified hyperlipidemia type Expected: 06/13/2024 (Approx imate), Expires: 06/13/2025[facility] Work Phone: Comment on above:Expected: 06/13/2024 (Approximate), Expires: 06/13/2025Start: 06-13-2024 End: 65-17-4292Klflbkd encounter jltboyqrz85/05/2025 9:10 AM EST Office Visit [address] [place] [address] Valentino Ty MD [address] [facility], [address] [place] [address] [facility]: 06-06-2024 End: 07-91-0647Fmbpowr encounter rvhubrnvl75/29/2025 9:45 AM EST Office Visit [facility] [address] [place] [phone] Ishmael Simon MD [address] [place] [phone] ArrivedNOAMERICAN HOSPITAL ASSOCIATION FMComment on above:ArrivedStart: 06-04-2024 End: 26-09-1577Sgedkxs encounter jtpylrgwz57/27/2025 9:30 AM EST [facility] [address] [place] [address] Ishmael Simon MD [address] [place] [address] [facility] CW FMStart: 30-25-3309Vdgbp screening for proteinDiabetes: Urine Protein ScreeningNOGA HealthcareStart: 05-23-2024 End: 09-26-8677Zfigmpp encounter procedureSt. Vincent General Hospital Districttart: 02-19-3948Gfzpxncn screeningDiabetes: Retinopathy ScreeningNOMS HealthcareStart: 05-11-2024 End: 91-38-3029Lbjuzts Device Check - In ClinicCardiac Device Check - In Clinic Implantable Cardiac Device Routine Sinus bradycardia Sick sinus syndrome (Multi) Chronotropic incompetence MRI safe cardiac pacemaker in situ Expected: 05/11/2024 (Approximate), Expires: 11/08/2024[facility] Service Area Work Phone: Comment on above:Expected: 05/11/2024 (Approximate), Expires: 11/08/2024Start: 04-24-2024 End: 53-23-4314Ekkzkrmqrt A1c/Hemoglobin.total in BloodHemoglobin A1c Lab Routine Type 2 diabetes mellitus with hyperglycemia, without long-term current use of insulin ([facility]) Expected: 04/24/2024 (Approximate), Expires: 04/24/2025 [facility] Healthcare Work Phone: Comment on above:Expected: 04/24/2024 (Approximate), Expires: 04/24/2025Start: 04-24-2024 End: 70-47-8708Dshoxxs encounter procedureNOAMERICAN HOSPITAL ASSOCIATION FMComment on above:Arrived Start: 71-74-7071Mhxjarhyxm A1c measurementDiabetes: Hemoglobin B9CWZIGChildren's Mercy HospitalStart: 60-41-2704ZWN High Risk: (Elderly (60+) or Population) (1 - Risk 60-74 years 1-dose series)RSV High Risk: (Elderly (60+) or Population) (1 - Risk 60-74 years 1-dose series)[facility] HospitalStart: 02-06-2024 End: 41-82-4257Kepizsjr identified in Urine by CultureUrine culture (clean catch) Microbiology Routine Dysuria Expected: 02/06/2024 (Approximate), Expires: 02/05/2025[facility] Healthcare Work Phone: Comment on above:Expected: 02/06/2024 (Approximate), Expires: 02/05/2025Start: 02-06-2024 End: 72-92-0318Hlhjdvvjv trachomatis and Neisseria gonorrhoeae DNA [Identifier] in Unspecified specimen by KATT with probe detectionChlamydia DNA probe, direct Microbiology Routine Acute prostatitis Pyuria Expected: 02/06/2024 (Appr oximate), Expires: 02/05/2025[facility] HealthcareComment on above:Expected: 02/06/2024 (Approximate), Expires: 02/05/2025Start: 02-06-2024 End: 00-95-4546Icsxlwtaa gonorrhoeae DNA assayGonococcus DNA, PCR Microbiology Routine Dysuria Acute prostatitis Pyuria Expected: 02/06/2024 (Approximate), Expires: 02/05/2025[facility] HealthcareComment on above:Expected: 02/06/2024 (Approximate), Expires: 02/05/2025Start: 02-06-2024 End: 74-72-6664Rsbdjmiivf complete panel - UrineUrinalysis with reflex microscopic (clean catch) Lab Routine Dysuria Expected: 02/06/2024 (Approxima te), Expires: 02/05/2025N[facility]S HealthcareComment on above:Expected: 02/06/2024 (Approximate), Expires: 02/05/2025Start: 01-13-2024 End: 03-89-4781Wkxwrla encounter procedureNOMS CWM FMComment on above:Arrived Start: 77-65-7018PQYBW-19 Vaccine ( season)COVID-19 Vaccine ( season)[facility]: 79-68-1268GADYH-19 Vaccine ( season)COVID-19 Vaccine ( season)[facility]: 33-68-0016Pvrhurxad vaccinationFort Hamilton Hospital: 12-23-2023 End: 48-26-9890Jcafotn encounter puvezoutk28/16/2024 10:00 AM EDT Appointment [facility] [address] [place] [address] Roc Ramsey DO [address] [place] [address] [facility] Centerart: 12-14-2023 End: 38-17-7403EV.doppler Extremity arteries - bilateral for physiologic artery studyVas art doppler lwr bilat mult lev/PVR Vascular Ultrasound Routine Claudication (CMS-HCC) Expected:12/14/2023, Expires: 12/13/2024[facility] Work Phone: Comment on above:Expected: 12/14/2023, Expires: 12/13/2024Start: 12-07-2023 End: 96-49-0021PS.doppler Extremity arteries - bilateral for physiologic artery studyVas art doppler lwr bilat mult lev/PVR Vascular Ultrasound Routine Right leg pain Expected: 12/07/2023, Expires: 12/06/2024[facility] Work Phone: Comment on above:Expected: 12/07/2023, Expires: 12/06/2024Start: 11-21-2023 End: 47-62-9190Cjfggyb encounter ygokrylff23/15/2024 8:50 AM EDT Office Visit [place] [address] [place] [address] Valentino Ty MD [address] [facility] [address] [place] [address] [facility]Start: 11-09-2023 End: 41-08-2429Egkihhi Device Check - In [facility] Service Area Work Phone: Comment on above:Expected: 11/09/2023 (Approximate), Expires: 08/04/2024Start: 11-09-2023 End: 77-99-2749HJ Chest 2 [facility] Work Phone: Comment on above:Expected: 11/09/2023, Expires: 08/04/2024Once for 1 Occurrences starting 11/09/2023 until 11/09/2023Start: 11-09-2023 End: 93-50-8979Bbtezan encounter procedureSt. Vincent General Hospital Districttart: 11-03-2023 End: 23-28-0891Nhcoxqe encounter gamlerrkt65/27/2024 8:50 AM EDT Office Visit [place] [address] [place] [address] Valentino Ty MD [facility] [facility] [address] [place] [address] [facility] CenterStart: 08-12-2023 End: 90-43-2546Zaerqtsy Jzswwiw1708/12/2023 8:30 AM EDT Clinical Support [facility] [address] [place] [address] [facility]art: 83-76-4158Ifdhlwwimc hospital visit by yunpycysz32/03/2024 2:09 PM EDT Hospital Encounter [facility] [address] [place] [address] Localized swelling on left hand; S/P placement of cardiac pacemakerSouthwest Memorial HospitalComment on above:Localized swelling on left hand; S/P placement of cardiac pacemakerStart: 07-22-2023 End: 96-13-3991QF Heart TransthoracicTransthoracic Echo Complete Echocardiography Routine Sinus bradycardia Chronotropic incompetence Sick sinus syndrome (CMS/HCC) Other fatigue Preoperative cardiovascular examination Expected: 07/22/2023 (Approximate), Expires: 07/21/2025[facility] Work Phone: Comment on above:Expected: 07/22/2023 (Approximate), Expires: 07/21/2025Start: 69-68-5801TOJ, Provider: Valentino Ty, Status: Pen, Time: 8:30 AMFUV, Provider: Valentino Ty, Status: Pen, Time: 8:[address] [facility] [address] DO Work Phone: Start: 02-40-7815FZBHI-19 Vaccine ( season) COVID-19 Vaccine ( season)[facility] HospitalStart: 31-06-0517Pgjtsleso vaccinationInfluenza Vaccine (#1)[facility]: 56-77-0411WHL, Provider: Valentino Ty, Status: Pen, Time: 10:40 AMFUV, Provider: Valentino Ty, Status: Pen, Time: 10:40 AMMP-[facility] 600 DO Work Phone: Start: 85-52-5146LDRXBV JUICE, Provider: CARLITO HHVI NUCLEAR 01,[id number], Status: Pen, Time: 2:00 PMSTRESS JUICE, Provider: CARLITO HHVI NUCLEAR 01,[id number], Status: Pen, Time: 2:[address] [address] DO Work Phone: Start: 08-37-7592Xcwfzgrgnrzgws of varicella zoster vaccineZoster (Shingles) Vaccine (1 of 2)[facility] [employer] SystemStart: 95-94-5706Olcdxdjs specific antigen measurementPSA Prostate Cancer Screening [facility]: 81-50-6539JAW High Risk: (Elderly (60+) or Population) (1 - Risk 50-74 years 1-dose series)RSV High Risk: (Elderly (60+) or Population) (1 - Risk 50-74 years 1-dose series) [facility]: 25-90-7674Cusesa Vaccines (1 of 2)Zoster Vaccines (1 of 2)[facility]: 20-81-4583ZAoU/Tdap/Td Vaccines (1 - Tdap)DTaP/Tdap/Td Vaccines (1 - Tdap)[facility]: 12-34-5199ZIeB,Tdap and Td Vaccines (1 - Tdap)DTaP,Tdap and Td Vaccines (1 - Tdap)[facility] [employer] SystemStart: 12-86-4278Dmfmdgzkf B Vaccines (1 of 3 - 19+ 3-dose series)Hepatitis B Vaccines (1 of 3 - 19+ 3-dose series) [facility]: 65-42-8567Poynaxswvwfm vaccination Pneumococcal Vaccine (1 of 2 - PCV)[facility]: 66-85-8141Wusym screening for proteinDiabetes: Urine Protein ScreeningFort [facility] Hospital: 95-07-0723Eyuup BMI Follow Up PlanAdult BMI Follow Up PlanAtrium Health SouthParktart: 54-83-7692Fpvwgwle mellitus screening Diabetes ScreeningFort [facility] Hospital: 63-94-8563Nplqdjiv foot examinationDiabetic Foot ExamProOhioHealth Berger Hospitaltart: 02-21-1982 Hepatitis C screeningHepatitis C ScreeningUnSelect [facility] Specialty [facility] Start: 03-19-2000Kwnulmevkv ScreeningDepression ScreeningCoshocton Regional Medical Center Start: 49-39-1339Qohgcpab foot examinationDiabetes: Foot ExamUnBucyrus Community Hospital: 88-42-5597Fmpprpay screeningDiabetes: Retinopathy ScreeningUnBucyrus Community Hospital: 13-92-1754Ajmzlniqlixi Vaccine: Pediatrics (0 to 5 Years) and At-Risk Patients (6 to 64 Years) (1 - PCV) Pneumococcal Vaccine: Pediatrics (0 to 5 Years) and At-Risk Patients (6 to 64 Years) (1 - PCV)[facility]: 98-99-7863Dlndizjhdtfg Vaccine: Pediatrics (0 to 5 Years) and At-Risk Patients (6 to 64 Years) (1 of 2 - PCV)Pneumococcal Vaccine: Pediatrics (0 to 5 Years) and At-Risk Patients (6 to 64 Years) (1 of 2 - PCV)[facility]: 20-42-4033UTH Vaccines (1 of 1 - Standard series)MMR Vaccines (1 of 1 - Standard series) [facility]: 78-81-1876BAAYE-19 Vaccine (#1)COVID-19 Vaccine (#1)[facility]: 06-63-7901Gmdunx wellness visitWelcome to Medicare VisitUnBucyrus Community Hospital: 1965 Creatinine measurementCreatinine LevelUnBucyrus Community Hospital: 37-29-0575YwcjniucuhbpuojaLnewmdcpzpnhtnHbrnyhbeps Hospitals of ClevelandStart: 64-82-3604Vttolxbv screeningDiabetic Ophthalmology ExamProKettering Health Main Campus Start: 02-30-6818Udebzudeyq A1c measurementDiabetes: Hemoglobin P1CStjpzsipzbBucyrus Community Hospital: 65-92-2779Inqdkktev B Vaccines (1 of 3 - 3-dose series)Hepatitis B Vaccines (1 of 3 - 3-dose series)[facility]: 39-93-2090PWU screeningHIV ScreeningFort [facility] Hospital: 49-28-5113Qzcmo panelLipid PanelFort Hamilton Hospital: 1964Medicare Annual Wellness (AWV)Medicare Annual Wellness (AWV)[facility]Start: 1964Medicare Annual Wellness VisitMedicare Annual Wellness Visit (AWV)[facility]: 1965 Potassium measurementPotassium LevelUnBucyrus Community Hospital: 90-28-4214Gxyrgjpfd for malignant neoplasm of colonFort [facility] Hospital: 47-11-3714Wptdfxi CounselingTobacco CounselingLima City Hospital SystemStart: 96-18-5480Ktsnu screening for proteinDiabetes: Urine Protein ScreeningKettering Memorial Hospital End: 97-85-0253Njfdh metabolic 2000 panel - Serum or PlasmaBasic Metabolic Panel Lab Routine Sinus bradycardia Chronotropic incompetence Sick sinus syndrome (C MS/HCC) Other fatigue 1 Occurrences starting 07/22/2023 until 07/21/2024 [facility] Work Phone: Comment on above:1 Occurrences starting 07/22/2023 until 07/21/2024 End: 37-70-9978Fkwknvr Device Check - In ClinicCardiac Device Check - In Clinic Implantable Cardiac Device Routine Cardiac pacemaker in situ 1 Occurrences starting 05/23/2024 until 11/20/2025[facility] Service Area Work Phone: Comment on above:1 Occurrences starting 05/23/2024 until 11/20/2025 End: 93-02-7258Aihzrlb Device Check - In ClinicCardiac Device Check - In Clinic Implantable Cardiac Device Routine Cardiac pacemaker in situ 1 Occurrences starting 11/28/2024 until 05/31/2026[facility] Service Area Work Phone: Comment on above:1 Occurrences starting 11/28/2024 until 05/31/2026 End: 80-71-8482Gmfzjgm Device Check - RemoteLOVELACE WOMEN'S HOSPITAL Service Area Work Phone: Comment on above:Once for 1 Occurrences starting 01/25/2024 until 01/25/2024 End: 31-62-6074Diwzyqy Device Check - RemoteCardiac Device Check - Remote Implantable Cardiac Device Routine Cardiac pacemaker in situ 52 Occurrences starting 05/23/2024 until 11/20/2024[facility] Work Phone: Comment on above:52 Occurrences starting 05/23/2024 until 11/20/2024 End: 49-92-2620Hfuonjd Device Check - RemoteCardiac Device Check - Remote Implantable Cardiac Device Routine Cardiac pacemaker in situ 52 Occurrences starting 11/28/2024 until 05/31/2025[facility] Work Phone: Comment on above:52 Occurrences starting 11/28/2024 until 05/31/2025 End: 30-92-0779WSC panel - Blood by Automated countCBC Lab Routine Sinus bradycardia Chronotropic incompetence Sick sinus syndrome (CMS/HCC) Other fati tamika 1 Occurrences starting 07/22/2023 until 07/21/2024[facility] Work Phone: Comment on above:1 Occurrences starting 07/22/2023 until 07/21/2024ECG 12 lead (Clinic Performed)ECG 12 lead (Clinic Performed) ECG Routine Sinus bradycardia 11/09/2023 10:38 AM [facility] Work Phone: ecg 12 lead STATECG 12 lead STAT ECG STAT 08/05/2023 12:30 PM [facility] Service Area Work Phone: ecg 12 lead STATECG 12 lead STAT ECG STAT 08/05/2023 5:12 PM [facility] Work Phone: LOWTC RESPIRATORY CULTURELOWER RESPIRATORY CULTURE Lab Routine 05/27/2024 6:00 PM ESTNOMS HealthcarePPM IMPLANT DCPPM IMPLANT DC Sinus bradycardia Chronotropic incompetence Sick sinus syndrome (CMS/HCC) Other fatig ueUniBlanchard Valley Health System [facility] Work Phone: End: 99-75-8178Qayvokrrdti time (PT)Protime-INR Lab Routine Sinus bradycardia Chronotropic incompetence Sick sinus syndrome (CMS/HCC) Other fatigue 1 Occurrences starting 07/22/2023 until 07/21/2024[facility] Service Area Work Phone: Comment on above:1 Occurrences starting 07/22/2023 until 07/21/2024 Payers DatePayer CategoryPayerPolicy [id number]-pay2024Medicare (Managed Care)[id number] Health [id number] [id number] 78-18-8959Zuogyav Health Il[id number] 2..840.1.787094.3.57[id number] 2..840.1.923836.3.57[id number] 2..840.1.865281.3.57[id number] 2.16.840.1.345099.3.57[id number] 2..840.1.926946.3.57[id number] 2.16.840.1.962043.3.579.2.97863-83-3516Bteqfqp5635064 2.16.840.1.713012.3.579.2.14948-30-1314Aeoqckm5656771 2.16.840.1.348967.3.579.2.42558-88-3227Ahtjlrh4218737 2.16.840.1.048002.3.579.2.87755-89-0042Rxwuswk7293775 2.16.840.1.530845.3.579.2.40883-13-5811Duaqltl0410063 2.16.840.1.718973.3.579.2.47692-06-8520Zcpvfhj8185354 2.840.1.496711.3.579.2.59740-54-1973Qgttllw7696095 2..840.1.468909.3.579.2.15930-06-4347Ddvwbbz5058563 2.840.1.252260.3.579.2.37136-36-5902Etucdft9663053 2.840.1.514913.3.579.2.61949-69-1721Thlaqpd1823135 2.840.1.158610.3.579.2.51211-63-5255Hcwnfqd6690560 2..840.1.919364.3.579.2.10947-88-9494Nzdacsc3628359 2.840.1.501654.3.579.2.79733-40-1963Gjapaon5893414 2.840.1.885318.3.579.2.81943-42-6937Dafdmob9023878 2.840.1.896214.3.579.2.57123-92-0732Ksqdase5115199 2.840.1.193121.3.579.2.43705-71-7092Cxhlhnl1568751 2.840.1.006052.3.579.2.80616-87-7728Jcubopf0998131 2.840.1.817449.3.579.2.34029-55-2429Ulswayl0496795 2.840.1.464853.3.579.2.47130-70-1892Nilkcee8223477 2.840.1.237176.3.579.2.28524-55-8822Pjimrer2410151 2..840.1.471286.3.579.2.96798-67-6897Fnyqtpe3586652 2.840.1.114673.3.579.2.74705-06-7972Ddvnnlg0583029 2.840.1.720892.3.579.2.33933-72-2980Aynbzlm2754305 2.840.1.916086.3.579.2.07340-41-9039Tyndktd4872056 2.840.1.840398.3.579.2.17902-19-4332Rwugsoo475243291 2.840.1.276609.3.579.2.45031-03-4023Oyojbkx436658598 2.840.1.779309.3.579.2.35690-72-5182Mhhadlb527272832 2.840.1.770805.3.579.2.75525-60-3685Uomiurl18944336 2.840.1.457907.3.579.2.809954-39-8874Avuhrqt84609772 2.840.1.493175.3.579.2.148635-42-6166Secsupm4629307 2.840.1.561353.3.579.2.618289-36-1446Pebybec6988914 2.840.1.932508.3.579.2.342760-96-8127Kokmoai1230707 2.840.1.365587.3.579.2.275667-41-0688Nzxtxiy6466993 2..840.1.266153.3.579.2.881518-24-7521Yqdanpn7109370 2..840.1.204853.3.579.2.004862-17-1974Rpaches522760574 2..840.1.268351.3.579.2.339840-04-0167Zbnlzqk511928340 2..840.1.930293.3.579.2.913468-15-4514Sltbldh548263733 2..840.1.082178.3.579.2.173792-20-0370Nxqjpth46844940 2.840.1.373507.3.579.2.201047-13-4637Reypnso53355164 2.0.1.258538.3.579.2.598102-71-5965Ywyscqi68838525 2.840.1.191427.3.579.2.090292-80-0391Bvbnrsc62858694 2.840.1.913775.3.579.2.1246 [id number] 1961Medicare [id number] [facility] [id number] 7bzi1gf7-ddp5-7589-a0uh-[id number] 2.840.1.120703.3.579.2.926Qxlpmob20827898 2.0.1.855809.3.579.2.531 Social History DateTypeDetailFacilityStart: 07-13-2023 End: 71-28-1276Pn alcohol useNo alcohol useNOMS HealthcareComment on above:1 pack daily;Start: 04-13-2023 End: 21-37-8479Doajkbo smoking status NHISSmokes tobacco dailyUnSelect Medical Specialty Hospital - TrumbullStart: 46-81-6981Vrcuson of tobacco useCigarette Smoker [facility] Work Phone: Start: 04-13-2023 End: 77-08-2476Rveviur use and exposureSmokeless tobacco non-userUnSelect Medical Specialty Hospital [facility] Work Phone: Start: 07-19-2023 End: 95-07-9640Qzvjaeg intakeLifetime non-drinker (finding)[facility] Work Phone: Start: 07-13-2023 End: 53-75-0841Pqtwxxj use panelNOGA HealthcareStart: 15-70-3014Vvk Assigned At BirthNot on fileUnSelect Medical Specialty Hospital [facility] Work Phone: Start: 07-12-2023 End: 93-75-8092Ldrzzrrg to SARS-CoV-2 (event)Not sureUnSelect Medical Specialty Hospital - TrumbullStart: 04-03-2022 End: 41-99-3453Azjptwqth of Social Gatherings with Friends and FamilyNot on file N[facility]S HealthcareDo you belong to any clubs or organizations such as nondenominational groups, unions, fraternal or athletic groups, or [...] got money to buy more.Never trueNOMS HealthcareStart: 79-89-4248Vvxytrh smoking status NHISSmoker (finding)[facility] Hospitaltart: 04-03-2022 End: 78-67-3486MclIupg (finding)[facility] Hospitaltart: 78-64-6289Xos [facility]igned At [facility] Foundationtart: 84-42-4434Lpobonq smoking status NHISEx-smokerKettering Memorial Hospital Work Phone: Medical Equipment Procedure CodeEquipment CodeEquipment Original TextEquipment IdentifierDates Lead, Capsurefix Novus, 52 Cm - [id number]: 32-83-4040Sawc, Capsurefix Novus, 45 Cm - [id number]: 81-50-5633Pvlkasttt, Dual Chamber, Kae Mri Xt Dr - [id number]: 37-70-6035Vits 63n68iu Progrip [facility] - [id number]: 06-30-2021 Functional Status LdjoGtnlbxeyjzUpotjkPlyhzfqg99-30-6624Apqqlfu Health Questionnaire 2 item (PHQ- 2) [Reported][facility] Ecgosqctgg37-06-2901Tsngr score [AUDIT-C]0 10/09/2023 9:03 AM EDT Oriel TherapeuticsclarkridgeCrowdfunderChildren's Mercy [id number] often do you have a drink containing alcohol?Never 10/09/2023 9:03 AM EDT [facility]06-02-2024Functional statusPatient does not drink 10/09/2023 9:03 AM EDT [facility] Patient does not drinkChildren's Mercy HospitalBigheywnuk20-65-2025Cys often do you have 6 or more drinks on 1 occasion?Never 10/09/2023 9:03 AM T [facility] 08-31-2020 to 02-05-2025 Note Date & [id number] NoteNeurosurgery Consult Chief Complaint: Right leg and [...] repair. He has seen Dr. Marcelino with [facility] surgery in the past. Despite [...] Resource Strain: Low Risk (10/09/2023) Received from [facility] Overall Financial Resource Strain (CARDIA) Difficulty of Paying Living Expenses: Not hard at all Food Insecurity: No Food Insecurity (12/07/2023) Received from [facility] Hunger Screening Within the past 12 months we worried whether our food would run out before we got money to buy more.: Never True Within the past 12 months the food we bought just didn't last and we didn't have money to get more.: Never True Transportation Needs: No Transportation Needs (10/09/2023) Received from [facility] PRAPARE - Transportation Lack of Transportation (Medical): No Lack of Transportation (Non-Medical): No Physical Activity: Insufficiently Active (10/09/2023) Received from [facility] Exercise Vital Sign Days of Exercise per Week: 2 days Minutes of Exercise per Session: 10 min Stress: No Stress Concern Present (10/09/2023) Received from [facility] [employer] - Occupational Stress Questionnaire Feeling of Stress : Not at all Social Connections: Unknown (10/09/2023) Received from [facility] Social Connection and Isolation Panel [NHANES] Frequency of Communication with Friends and Family: More than three times a week Frequency of Social Gatherings with Friends and Family: Not on file Attends Jain Services: Patient declined Active Member of Clubs or Organizations: No Attends Club or Organization Meetings: Patient declined Marital Status: Living with partner Intimate Partner Violence: Unknown (02/05/2025) Humiliation, Afraid, Rape, and Kick questionnaire Fear of Current or Ex-Partner: No Emotionally Abused: Not on file Physically Abused: Not on file Sexually Abused: Not on file Housing Stability: Low Risk (10/09/2023) Received from [facility] Housing Stability Vital (more content not included)...[facility]08-18-2025 History of Present illness Narrative* [...] diet and limit carbs. documented in this encounterChildren's Mercy [id number] History of Present illness Narrative* Amador Son [...] A DAY cetirizine (ZYRTEC) 10 mg, Nightly szlwbhmnhlt-ifdqypfwz-xwkytubf (TRELEGY-ELLIPTA) 100-62.5-25 mcg blister with device 1 [...] a BMI 35.27. Plan recommendation From the enterprise integration developer on point he is stable. He is [...] [4] No Known Allergies documented in this encounterK[facility] Work Phone: [phone]) 424-858707-23-2025 Instructions* Patient Instructions* Jazz Flynn RN - [...] your visit. Follow up with our physician phlebotomist lab assistant, Vaishnavi, in 6 months with device check Continue remote checks at 3 and 9 months IJazz RN, AM SCRIBING FOR, AND IN THE PRESENCE OF DR. AMADOR SON MD documented in this encounterK[facility] Work Phone: [phone]) 757-529106-17-2025 History of Present illness Narrative* Ishmael Smion MD - 10/23/2024 10:05 AM EDTAssociated Problem(s): [...] (BMI) of 39.0 to 39.9 in adult ([facility]) Weight loss indicated. * Ishmael Simon MD [...] hyperglycemia, without long-term current use of insulin ([facility]) - Primary Not checking BS and [...] index (BMI) of39.0 to 39.9 in adult ([facility]) Weight loss indicated. Relevant Orders TSH Primary osteoarthritis of right hip Pain stable and use percocet PRN. Continue home PT exercises. documented in this encounterChildren's Mercy [id number] History of Present illness Narrative* Ishmael Simon MD - 07/23/2024 10:54 AM EDTAssociated Problem(s): Type 2 diabetes mellitus with hyperglycemia, without long-term current use of insulin ([facility]) Not checking BS but A1C controlled. Stick to ADA diet and limit carbs. * Ihsmael Simon MD - 07/23/2024 10:53 AM EDTAssociated Problem(s): Primary osteoarthritis of right hip Pain stable and use percocet PRN. Continue home PT exercises. * Ishmael Simon MD - 07/23/2024 10:53 AM EDTAssociated Problem(s): Peripheral vascular disease, unspecified (CMS/HCC) No symptoms and increase ambulation. * Ishmael Simon MD - 07/23/2024 10:53 AM EDTAssociated Problem(s): Essential hypertension, benign ([facility]) BP controlled and monitor PRN. * Ishmael Simon MD - 07/23/2024 10:53 AM EDTAssociated Problem(s): DDD (degenerative disc disease), lumbar Pain stable and follow with pain management for procedures. * Ishmael Simon MD - 07/23/2024 10:53 AM EDTAssociated Problem(s): Class 2 severe obesity due to excess calories with serious comorbidity and body mass index (BMI) of 38.0 to 38.9 in adult ([facility]) Weight loss indicated. * Ishmael Simon MD - 07/23/2024 10:52 AM EDTAssociated Problem(s): Chronic obstructive pulmonary disease ([facility]/HCC) Increased symptoms and treat with levaquin and [...] Continue home PT exercises. documented in this [facility]02-05-2025 History of Present illness Narrative* Valentino Ty [...] once daily at bedtime., Disp: , Rfl: ivvyaqmkxto-wkzxainjg-asgnbomp (TRELEGY-ELLIPTA) 100-62.5-25 mcg blister with device, Inhale [...] exam, discussion and plan. documented in this encounterKet[facility] Hospital Work Phone: 1(729) 252-637202-05-2025 Instructions* Patient Instructions* Yola Morrow LPN - [...] follow up per routine documented in this encounterKettering [facility] Hospital Work Phone: [phone] 515-895601-29-2025 History of Present illness Narrative* Ishmael Simon MD - 06/06/2024 10:12 AM ESTAssociated Problem(s): Essential hypertension, benign (CMS/HCC) BP controlled and monitor PRN. * Ishmael Simon MD - 06/06/2024 10:12 AM ESTAssociated Problem(s): Class 2 severe obesity due to excess calories with serious comorbidity and body mass index (BMI) of 36.0 to 36.9 in adult ([facility]) Weight loss indicated. * Ishmael Simon MD - 06/06/2024 10:11 AM ESTAssociated Problem(s): Chronic obstructive pulmonary disease ([facility]) Recent exacerbation but improved. Complete prednisone as directed. Use albuterol PRN. * Ishmael Simon MD - 06/06/2024 10:11 AM ESTAssociated Problem(s): Chronic hypoxic respiratory failure ([facility]) Normal SpO2 on room air and [...] HFA 90 mcg/act inhaler documented in this encounterChildren's Mercy [id number] Note Gram Stain Evaluation This specimen is of good quality and is acceptable for routine [facility] [id number] NoteGRAM STAIN EVALUATIONbacterial culture.[facility] HealthcareCozdpjgfib66-57-6683 History of Present illness Narrative* Amador Son [...] A DAY cetirizine (ZYRTEC) 10 mg, Nightly emtcateoskn-ocwcyzffs-gbnrhfwz (TRELEGY-ELLIPTA) 100-62.5-25 mcg blister with device 1 [...] status post dual- chamber pacemaker implant (Medtronic Wilber XT DR MRI) on August 05, 2023. [...] to prepare this document. documented in this [facility] Work Phone: [phone] 988-125601-15-2025 Instructions* Patient Instructions* Jazz Flynn RN - [...] DR. AMADOR SON MD documented in this [facility] Work Phone: [phone] History of Present illness Narrative* Ishmael Simon MD - 04/24/2024 11:38 AM ESTAssociated Problem(s): Class 2 severe obesity due to excess calories with serious comorbidity and body mass index (BMI) of 37.0 to 37.9 in adult ([facility]) Weight up 28 pounds in past year. Add ozempic. * Ishmael Simon MD - 04/24/2024 11:38 AM ESTAssociated Problem(s): Essential hypertension, benign ([facility]) BP controlled and monitor PRN. * Ishmael Simon MD - 04/24/2024 11:38 AM ESTAssociated Problem(s): Type 2 diabetes mellitus with hyperglycemia, without long-term current use of insulin ([facility]) Not checking BS and due for [...] Items Addressed This Visit Essential hypertension, benign ([facility]) BP controlled and monitor PRN. Type 2 diabetes mellitus with hyperglycemia, without long-term current use of insulin ([facility]) Not checking BS and due for A1C. Add ozempic. Relevant Medications semaglutide (Ozempic, 0.25 or 0.5 MG/DOSE,) 2 MG/1.5ML solution pen-injector Other Relevant Orders Hemoglobin A1c Class 2 severe obesity due to excess calories with serious comorbidity and body mass index (BMI) of37.0 to 37.9 in adult ([facility]) Weight up 28 pounds in past [...] Discussed daily Aspirin therapy. documented in this encounterChildren's Mercy [id number] History of Present illness Narrative* Ishmael Simon [...] Chlamydia DNA probe, direct documented in this encounterChildren's Mercy [id number] History of Present illness Narrative* Ishmael Simon MD - 01/13/2024 10:05 AM EDTAssociated Problem(s): Type 2 diabetes mellitus with hyperglycemia, without long-term current use of insulin (CMS/[facility]) Not checking BS and A1C 5.8. Stick to ADA diet and limit carbs. * Ishmael Simon MD - 01/13/2024 10:05 AM EDTAssociated Problem(s): Primary osteoarthritis of right hip Pain stable and use percocet PRN. Continue home PT exercises. * Ishmael Simon MD - 01/13/2024 10:05 AM EDTAssociated Problem(s): Essential hypertension, benign ([facility]) BP controlled and monitor PRN. * Ishmael Simon MD - 01/13/2024 10:05 AM EDTAssociated Problem(s): DDD (degenerative disc disease), lumbar Pain worse and follow with pain management for ablation. * Ishmael Simon MD - 01/13/2024 10:04 AM EDTAssociated Problem(s): Chronic obstructive pulmonary disease ([facility]) Symptoms worse and treat with prednisone. Continue trelegy and use albuterol PRN. * Ishmael Simon MD - 01/13/2024 10:04 AM EDTAssociated Problem(s): Chronic diastolic heart failure ([facility]) Occasional edema and use lasix PRN. Elevate [...] He is alert. Assessment/Plan documented in this encounterChildren's Mercy [id number] Miscellaneous Notes* Telephone Encounter - Sheri Chau [...] if pain get's worse. [facility] encounter Note* Telephone Encounter - Sheri [...] surgery. Let me know. Thanks, Dr. Galindo [facility]08-[facility] Telephone encounter Note* Telephone Encounter - Sheri [...] vascular surgery referral if pain get's worse. [facility]07-31-[facility] History of Present illness Narrative* Roc Ramsey, - 12/07/2023 10:00 AM EDT Images from the original note were not included. [facility] GENER[facility] [address] [id number] progress NOTE CHIEF COMPLAINT Chief Complaint Patient presents with Follow-up RECHECK INGUINAL HERNIA, RIGHT Liliananakul Michaels . is a 58 y.o. male who presents along with his with complaints of pain in his right groin and right anterior thigh. He used to receive radiofrequency ablation from the [facility] pain management but the last 1 has [...] History: Diagnosis Date Acute renal failure (ARF) ([facility]) unknown origin Arrhythmia Bradycardia Bilateral carpal tunnel syndrome BPH with urinary obstruction Bradycardia Chronic hypoxemic respiratory failure ([facility]) Cigarette nicotine dependence COPD (chronic obstructive pulmonary disease) ([facility]) Degenerative disc disease, lumbar Dental disease Diabetes mellitus ([facility]) ED (erectile dysfunction) Hypertension Insomnia nursing home (current) use of inhaled steroids Morbid obesity ([facility]) Nasal polyps Obesity TAHIR (obstructive sleep apnea) PVD (peripheral vascular disease) (CMS-HCC) Requires continuous at home supplemental oxygen 2 L NC at HS Right inguinal hernia Skin lesion Tobacco abuse Visual impairment glasses Vitamin D deficiency SURGICAL HISTORY Past Surgical History: Procedure Laterality Date CARDIAC PACEMAKER PLACEMENT 08/05/2023 COLONOSCOPY N/A 08/24/2019 Performed by Germán Dukes MD at [facility] CYST REMOVAL from neck DAVINCI REPAIR HERNIA INGUINAL Right 06/30/2021 Performed by oRc Ramsey DO at [facility] ELBOW SURGERY right JOINT REPLACEMENT right [...] Resource Strain: Low Risk (10/09/2023) Received from [facility] Overall Financial Resource Strain (CARDIA) Difficulty of Paying Living Expenses: Not hard at all Food Insecurity: No Food Insecurity (12/07/2023) Hunger Screening Food Insecurity - Worry: Never True Food Insecurity - Inability: Never True Transportation Needs: No Transportation Needs (10/09/2023) Received from [facility] PRAPARE - Transportation Lack of Transportation (Medical): No Lack of Transportation (Non-Medical): No Physical Activity: Insufficiently Active (10/09/2023) Received from [facility] Exercise Vital Sign Days of Exercise per Week: 2 days Minutes of Exercise per Session: 10 min Stress: No Stress Concern Present (10/09/2023) Received from [facility] [employer] - Occupational Stress Questionnaire Feeling of Stress : Not at all Social Connections: Unknown (10/09/2023) Received from [facility] Social Connection and Isolation Panel [NHANES] Frequency of Communication with Friends and Family: More than three times a week Frequency of Social Gatherings with Friends and Family: Not on file Attends Jain Services: Patient declined Active Member of Clubs or Organizations: No Attends Club or Organization Meetings: Patient declined Marital Status: Living with partner Interpersonal Safety: Not on file Housing Instability: Low Risk (10/09/2023) Received from [facility] Housing Stability Vital Sign Unable to [...] refer back to pain management at the [facility] 3. Left inguinal hernia asymptomatic will observe 4. Umbilical hernia asymptomatic will observe 5. Weight loss recommended He and his significant other understood all the above. Evaluation included: Preparing to see the patient (e.g., review of tests) Obtaining and/or reviewing separately obtained history Performing a medically appropriate examination and/or evaluation Counseling and educating the patient/family/caregiver Referring and communicating with other health primary care pediatrician No primary diagnosis found. Roc Ramsey DO This note was created with the assistance of a speech recognition program. While intending to generate a timely document that accurately reflects the content of the visit, no guarantee can be provided that every grammatical or spelling mistake has been or will be identified or corrected. Thank you for your understanding. documented in this encounterCos[facility]07-31-2024 Instructions* Patient Instructions* Roc Ramsey DO - 12/07/2023 10:00 AM EDT Are You Ready To Kick The Habit? Free Tobacco Cessation Resources [facility] Services [facility] provide all employees with free tobacco cessation services that include: Counseling to understand nicotine addiction Education about medications that can help you successfully quit Assistance with developing a plan to quit Call to set up an individual appointment or find out when group classes will be held: Allen acharya [facility]: [phone] [facility]: [phone] [facility]: [phone] [facility]: [phone] Quit Smoking Action Plan and Resources [facility] offers an eight-week, online smoking cessation plan to all [facility] employees, regardless of whether [place] is your medical insurance provider. Go to [email or web address]/employeewellness and click the Health Risk Assessment and Resources link to get started. In the [employer] menu, click Action Plans instead of Health Risk Assessment to access the Quit Smoking Action Plan. Additional smoking cessation resources are also available to all [facility] employees on the [employer] web page at www.[employer]/quitsmoking. [place] Tobacco Cessation Program If [employer] [place] is your medical insurance provider, there are more free resources available to you, including: No copays or deductibles on local tobacco cessation counseling services to help you quit Prescription assistance for tobacco cessation medications to help you quit For details about the tobacco cessation program available to [employer] members, go to www.[employer] (Search: Tobacco Cessation Program). [place] Tobacco Quit Line 8-888-ZRWK-NOW ( ) is a toll-free, telephonic service that helps [place] residents quit smoking and using tobacco. It is staffed by experts who tailor a quit plan for you and provide you with advice. [place] Tobacco Quit Line 5-311-NVDU-NOW ( ) is a toll-free, telephonic service that helps [place] residents quit smoking and using tobacco. It is staffed by experts who tailor a quit plan for you and provide you with advice. Two weeks of nicotine replacement therapy may be provided at no charge, if needed. Additional Resources These national organizations also offer free information and resources to help you quit tobacco: [place] [employer]--www.cancer.org/healthy/stayawayfromtobacco [place] [employer]--www.heart.org (Search: Quit Smoking) Centers for Disease Control and Prevention--www.cdc.gov/tobacco [place] [employer]--www.lungusa.org documented in this encounterPeoples Hospital3D [facility] [id number] History of Present illness Narrative* Naima Wright, LYNN-POLITICAL THEORY PROFESSOR - 11/09/2023 11:00 AM EDT CARDIOLOGY OFFICE [...] DAY cetirizine (ZYRTEC) 10 mg, oral, Nightly tnrxzadqxlh-aeftsphci-ytpgmqme (TRELEGY-ELLIPTA) 100-62.5-25 mcg blister with device 1 [...] 68 bpm, prolonged AV conduction with a SC interval of 220 ms, QRS durations 100 [...] status post dual- chamber pacemaker implant (Medtronic Wilber XT DR MCCORMICK) on August 05, 2023. [...] to prepare this document. documented in this [facility] Work Phone: 1(284) 573-315904-03-2024 History of Present illness Narrative* Amador Son [...] some point he had some evaluation in [place] that shows no significant obstructive coronary disease [...] night however but few episodes in the treasury associate hours were also noted 5. No symptoms [...] Diagnosis Date Arrhythmia CHF (congestive heart failure) ([facility]) COPD (chronic obstructive pulmonary disease) ([facility]) Hypertension Social History Social History [...] breakfast cetirizine (ZYRTEC) 10 mg, oral, Nightly cpobgmnsbho-xzwhgbcaa-cqaklrqq (TRELEGY-ELLIPTA) 100-62.5-25 mcg blister with device 1 [...] to prepare this document. documented in this [facility] Work Phone: 1(173) 176-827204-03-2024 Instructions* Patient Instructions* Vero Mccarthy LPN - [...] Dr. Amador Son MD documented in this [facility] Work Phone: [phone] 119-760603-29-2024 Nurse Note* Ronda Souza RN - 08/05/2023 7:45 PM EDT Patient discharge instructions reviewed with patient and , verbalized understanding. Lt chest dressing remains dry/intact, no hematoma, no ecchymosis. Patient able to teachback site care instructions, follow up appointments. IV x2 removed and patient discharged to home via w/c. [facility]03-29-2024 Nurse Note* Ronda Souza RN - [...] needs at this time. documented in this [facility] Work Phone: [phone] 517-322403-29-2024 Nurse Note* Ronda Souza RN - 08/05/2023 7:20 PM EDT Patient sitting up in chair, denies any complaints of incisional pain. Lt upper chest incision remains dry/intact. Will begin discharge instructions. [facility] Work Phone: [phone]) 918-346303-29-2024 Nurse Note* Ronda Souza RN - 08/05/2023 6:30 PM EDT Patient ambulated to BR, gait steady. Pacer rep has already met with patient and . Lt upper chest dressing remains dry/intact. Lt arm in immobilizer and ice pack over site. [facility] Work Phone: 1([phone]) 216-442003-29-2024 Note* Significant Event - Ramu Vidal RN - 08/05/2023 5:10 PM EDT Post EKG and CXR performed at bedside. Pt denies needs at this time. Left chest remains soft and stable with no hematoma or oozing. [facility] Work Phone: [phone]) 787-851003-29-2024 Miscellaneous Notes* Significant Event - Ramu Vidal [...] alternatives discussed with patient. documented in this encounterKet[facility] Hospital Work Phone: [phone] Hospital Discharge instructions* Discharge Instructions* CHIDI Ferreira [...] arm above shoulder level. Do not picking tech items that weigh greater than 10 lbs [...] have been instructed by the device company business process representative regarding remote home monitoring. There are [...] Care Everywhere. * Pacemaker Insertion Discharge Instructions (Irish) documented in this [facility] Work Phone: [phone]) 534-964303-29-2024 Note* Significant Event - Ramu Vidal RN [...] Pt denies further needs at this time. [facility] Work Phone: [phone]) 349-552903-29-2024 NoteTable formatting from the original result was [...] of infection. The patient should call the enterprise integration developer immediately if symptoms recur, or for any [...] model number W1 DR 017 number [id number]. Right atrial lead Medtronic 5076/45 serial number [id number] 8 mm [id number]. Imp (more content not included)...[id number] Note* Pre-Sedation Documentation - Amador Son MD - 08/05/2023 4:40 PM EDT Sedation Plan ASA 2 Mallampati class: II. Risks, benefits, and alternatives discussed with patient. [facility] Work Phone: [phone]) [phone] Attending History and physical note* Amador Son [...] some point he had some evaluation in [place] that shows no significant obstructive coronary disease [...] night however but few episodes in the treasury associate hours were also noted 5. No symptoms [...] breakfast cetirizine (ZYRTEC) 10 mg, oral, Nightly cozuhyvkqxq-kbltfyrym-izlcqzcn (TRELEGY-ELLIPTA) 100-62.5-25 mcg blister with device 1 [...] software was utilized to prepare this document. [facility] Work Phone: 1([phone]) 706-539103-29-2024 History and physical note* Amador Son MD [...] some point he had some evaluation in [place] that shows no significant obstructive coronary disease [...] night however but few episodes in the treasury associate hours were also noted 5. No symptoms [...] breakfast cetirizine (ZYRTEC) 10 mg, oral, Nightly ieiygyjydmt-wqbsbbxpo-ehkpkdzl (TRELEGY-ELLIPTA) 100-62.5-25 mcg blister with device 1 [...] to prepare this document. documented in this encounterK[facility] Work Phone: [phone]) [phone] Nurse Note* Ramu Vidal RN - 08/05/2023 3:20 PM EDT [place] from [employer] in room speaking to Pt and SO educating on home device monitor. [facility]03-29-2024 Nurse Note* Ramu Vidal RN - 08/05/2023 1:25 PM EDT Pt returned to room after echocardiogram. Denies needs at this time. [facility] Work Phone: 1([phone]) 881-310903-15-2024 History of Present illness Narrative* Amador Son [...] some point he had some evaluation in [place] that shows no significant obstructive coronary disease [...] night however but few episodes in the treasury associate hours were also noted 5. No symptoms [...] breakfast cetirizine (ZYRTEC) 10 mg, oral, Nightly wyqxyvxuess-fxwpkacdi-fxdiptdh (TRELEGY-ELLIPTA) 100-62.5-25 mcg blister with device 1 [...] to prepare this document. documented in this encounterK[facility] Work Phone: [phone]) 964-847703-15-2024 Instructions* Patient Instructions* Jazz Flynn RN - [...] DR. AMADOR SON MD documented in this encounterKet[facility] Hospital Work Phone: 1([phone]) 165-634003-14-2023 NoteCONSULTATION PROCEDURE DATE: 07/20/2022 Procedure was performed [...] as right medial portion of his leg.[facility] HospitalPlehgjer42-15-9991 NoteCONSULTATION CONSULTATION DATE: 05/07/2022 HISTORY OF PRESENT [...] in three months' time unless otherwise indicated.[id number] NoteCONSULTATION CONSULTATION DATE: 01/14/2022 HISTORY OF PRESENT [...] it was recommended that he see a hydraulic press operator, which he did do. He did a Holter monitor study and is following up with his hydraulic press operator on 01/28/2022. Current medications include gabapentin [...] Patient agrees with the plan of care.[facility] [id number] NoteCONSULTATION CONSULTATION DATE: 11/19/2021 This is a [...] to S1. Activities such as standing, walking, treasury associate and evening hours, stairs, bending and physical [...] be followed up in the clinic post-procedure. [facility] Signed and Approved by: YOLA COLMENARES . 11/27/2021 14:13:00[facility]06-16-2022 NoteCONSULTATION CONSULTATION DATE: 10/22/2021 HISTORY OF [...] patient agrees with the plan of care. [facility] Signed and Approved by: YOLA COLMENARES . 11/04/2021 16:23:00[facility]05-26-2022 NoteCONSULTATION CONSULTATION DATE: 10/01/2021 HISTORY OF [...] shape. He has seen Dr. Nunn in [place] in the past regarding his back, and [...] Patient agrees with the plan of care. [facility] Signed and Approved by: YOLA COLMENARES . 10/08/2021 16:01:00[facility]04-25-2021 NoteMicrobiology PROCEDURE: Blood Culture Charcoal [R1] [...] R1: This test was performed at: [facility], [address] [place] [address], [id number] , , Bgzjkv [facility]th Medical CenterComment on above:Performed By: #### [id number] ####[facility] [id number] [place], [place] [id number] NoteMicrobiology PROCEDURE: Blood Culture Charcoal [R1] SOURCE: [...] R1: This test was performed at: [facility], [address] [place] [address], [address] [place] [address], HebieqParkview Health Bryan HospitalComment on above:Performed By: #### [id number] ####[facility] [address] [place], [place] [address]Gmlyqjvhex note* Diagnosis 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 Sinus bradycardia Other specified cardiac dysrhythmias Establishing care with new doctor, encounter for BMI 34.0-34.9,adult Sick sinus syndrome (CMS/HCC) Sinoatrial node dysfunction Simple chronic bronchitis (CMS/HCC) Simple chronic bronchitis Current smoker Other fatigue Preoperative cardiovascular examination Pre-operative cardiovascular examination documented in this encounter [facility] Work Phone: Evaluation note* Diagnosis [...] dysfunction Other fatigue documented in this encounter [facility] Work Phone: Evaluation note* Diagnosis Localized swelling on left hand S/P placement of cardiac pacemaker 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 Abnormal stress test Other nonspecific abnormal cardiovascular system function study Sinus bradycardia Other specified cardiac dysrhythmias Sick sinus syndrome (CMS/HCC) Sinoatrial node dysfunction Essential hypertension, benign BMI 34.0-34.9,adult Current smoker documented in this encounter [facility] Work Phone: Evaluation note* Diagnosis Localized swelling on left hand S/P placement of cardiac pacemaker documented in this encounter [facility] Work Phone: Evaluation note* Diagnosis Cardiac pacemaker in situ Sinoatrial node dysfunction (Multi) Sinoatrial node dysfunction documented in this encounter [facility] Work Phone: Evaluation note* Diagnosis Cardiac pacemaker in situ Sinoatrial node dysfunction (Multi) Sinoatrial node dysfunction documented in this encounter [facility] Work Phone: Evaluation note* Diagnosis [...] [facility] HealthcareEvaluation noteNo assessment information availableMain [facility] Work Phone: Evaluation note* Diagnosis [...] (pediatric) Current smoker documented in this encounter [facility] Work Phone: Evaluation note* Diagnosis Pacemaker Cardiac pacemaker in situ documented in this encounter [facility] Work Phone: Evaluation note* Diagnosis [...] in adult (CMS/HCC) documented in this encounter [facility] HealthcareEvaluation note* Diagnosis Cardiac pacemaker in situ Sinoatrial node dysfunction (Multi) Sinoatrial node dysfunction documented in this encounter [facility] Work Phone: Evaluation note* Diagnosis Degeneration of lumbar intervertebral disc Degeneration of lumbar or lumbosacral intervertebral disc documented in this encounter [facility] HealthcareEvaluation note* Diagnosis Type 2 diabetes [...] examination of urine documented in this encounter [facility] HealthcareEvaluation note* Diagnosis Type 2 diabetes [...] this encounter [facility] HealthcareEvaluation note* Diagnosis Cardiac pacemaker in situ- Primary Sick sinus syndrome (Multi) Sinoatrial node dysfunction MRI safe cardiac pacemaker in situ Abnormal EKG Nonspecific abnormal electrocardiogram (ECG) (EKG) Chronotropic incompetence Other specified conduction disorder Sinoatrial node dysfunction (Multi) Sinoatrial node dysfunction Sinus bradycardia Other specified cardiac dysrhythmias Current smoker BMI 37.0-37.9, adult documented in this encounter [facility] Work Phone: Evaluation note* Diagnosis Sinus bradycardia Other specified cardiac dysrhythmias Sick sinus syndrome (Multi) Sinoatrial node dysfunction Chronotropic incompetence Other specified conduction disorder MRI safe cardiac pacemaker in situ documented in this encounter [facility] Work Phone: Evaluation note* Diagnosis [...] this encounter [facility] HealthcareEvaluation note* Diagnosis Type 2 diabetes [...] this encounter [facility] HealthcareEvaluation note* Diagnosis Type 2 diabetes [...] hyperglycemia, without long-term current use of insulin ([facility]/HCC)- Primary Essential hypertension, benign (CMS/HCC) Essential hypertension, benign Chronic diastolic heart failure (CMS/HCC) Chronic diastolic heart failure DDD (degenerative disc disease), lumbar Degeneration of lumbar or lumbosacral intervertebral disc Primary osteoarthritis of right hip Chronic obstructive pulmonary disease, unspecified COPD type (CMS/HCC) Chronic pain of both shoulders Type 2 diabetes mellitus with other specified complication, without long-term current use of insulin ([facility]) Vasculogenic erectile dysfunction, unspecified vasculogenic erectile dysfunction type Type 2 diabetes mellitus with diabetic peripheral angiopathy without gangrene, without long-term current use of insulin ([facility]) Peripheral vascular disease, unspecified (I73.9) Peripheral [...] hyperglycemia, without long-term current use of insulin ([facility]) Essential hypertension, benign (CMS/HCC) Essential hypertension, benign Class 2 severe obesity due to excess calories with serious comorbidity and body mass index (BMI) of37.0 to 37.9 in adult ([facility]) Chronic obstructive pulmonary disease with acute exacerbation (CMS/[facility])- Primary Chronic hypoxic respiratory failure (CMS/[facility]) Class 2 severe obesity due to excess calories with serious comorbidity and body mass index (BMI) of36.0 to 36.9 in adult ([facility]) Essential hypertension, benign (CMS/HCC) Essential hypertension, benign documented in this encounter [facility] HealthcareEvaluation note* Diagnosis Sick sinus syndrome (Multi)- Primary Sinoatrial node dysfunction Chronotropic incompetence Other specified conduction disorder Peripheral vascular disease, unspecified ([facility]) Peripheral vascular disease, unspecified Pacemaker Cardiac pacemaker in situ Essential hypertension, benign Sinus bradycardia Other specified cardiac dysrhythmias Hyperlipidemia, unspecified hyperlipidemia type Dyspnea on exertion Other dyspnea and respiratory abnormality BMI 37.0-37.9, adult Former smoker Personal history of tobacco use, presenting hazards to health Mild coronary artery disease documented in this encounter [facility] Work Phone: Evaluation note* Diagnosis Right leg pain- Primary Pain in soft tissues of limb Tobacco abuse Tobacco use disorder Class 3 severe obesity due to excess calories with serious comorbidity in adult, unspecified BMI ([facility]-HCC) Left inguinal hernia Inguinal hernia without mention of obstruction or gangrene, unilateral or unspecified, (not specified as recurrent) Claudication ([facility]-HCC) Unspecified peripheral vascular disease [facility] Claudication ([facility])- Primary Unspecified peripheral vascular disease [facility] Diagnosis Type 2 diabetes [...] index (BMI) of37.0 to 37.9 in adult ([facility]) Chronic obstructive pulmonary disease with acute exacerbation (CMS/[facility])- Primary Chronic hypoxic respiratory failure (CMS/[facility]) Class 2 severe obesity due to excess calories with serious comorbidity and body mass index (BMI) of36.0 to 36.9 in adult ([facility]) Essential hypertension, benign (CMS/HCC) Essential hypertension, benign Degeneration of lumbar intervertebral disc Degeneration of lumbar or lumbosacral intervertebral disc documented in this encounter [facility] HealthcareEvaluation note* Diagnosis Type 2 diabetes mellitus with hyperglycemia, without long-term current use of insulin ([facility]/HCC)- Primary Essential hypertension, benign (CMS/HCC) Essential hypertension, benign Chronic diastolic heart failure (CMS/HCC) Chronic diastolic heart failure DDD (degenerative disc disease), lumbar Degeneration of lumbar or lumbosacral intervertebral disc Dyslipidemia ([facility]/HCC) Other and unspecified hyperlipidemia Screening PSA (prostate [...] complication, without long-term current use of insulin ([facility]) Vasculogenic erectile dysfunction, unspecified vasculogenic erectile dysfunction type Type 2 diabetes mellitus with diabetic peripheral angiopathy without gangrene, without long-term current use of insulin ([facility]) Peripheral vascular disease, unspecified (I73.9) Peripheral vascular disease, unspecified Type 2 diabetes mellitus with hyperglycemia, without long-term current use of insulin ([facility]/HCC)- Primary Essential hypertension, benign ([facility]) Essential hypertension, benign Chronic diastolic heart failure ([facility]) Chronic diastolic heart failure Chronic obstructive pulmonary disease, unspecified COPD type (CMS/[facility]) DDD (degenerative disc disease), lumbar Degeneration of lumbar or lumbosacral intervertebral disc Primary osteoarthritis of right hip Body mass index (BMI) 35.0-35.9, adult Dysuria- Primary Acute prostatitis Pyuria Other nonspecific finding on examination of urine Medicare annual wellness visit, subsequent- Primary Type 2 diabetes mellitus with hyperglycemia, without long-term current use of insulin ([facility]) Essential hypertension, benign ([facility]) Essential hypertension, benign Class 2 severe obesity due to excess calories with serious comorbidity and body mass index (BMI) of37.0 to 37.9 in adult ([facility]) Chronic obstructive pulmonary disease with acute exacerbation ([facility])- Primary Chronic hypoxic respiratory failure ([facility]) Class 2 severe obesity due to excess calories with serious comorbidity and body mass index (BMI) of36.0 to 36.9 in adult ([facility]) Essential hypertension, benign (CMS/[facility]) Essential hypertension, benign Type 2 diabetes mellitus with hyperglycemia, without long-term current use of insulin ([facility])- Primary Essential hypertension, benign ([facility]) Essential hypertension, benign Chronic diastolic heart failure ([facility]) Chronic diastolic heart failure Primary osteoarthritis of right hip Degeneration of intervertebral disc of lumbar region with discogenic back pain Chronic obstructive pulmonary disease with acute exacerbation ([facility]) Peripheral vascular disease, unspecified ([facility]) Peripheral vascular disease, unspecified Class 2 severe obesity due to excess calories with serious comorbidity and body mass index (BMI) of38.0 to 38.9 in adult ([facility]) Type 2 diabetes mellitus with other specified complication ([facility]) Male erectile dysfunction, unspecified Type 2 diabetes mellitus with diabetic peripheral angiopathy without gangrene ([facility]) documented in this encounter [facility] HealthcareEvaluation note* Diagnosis Type 2 diabetes [...] this encounter [facility] HealthcareEvaluation note* Diagnosis Cardiac pacemaker in situ documented in this encounter [facility] Work Phone: Evaluation note* Diagnosis [...] gangrene, without long-term current use of insulin ([facility]) Peripheral vascular disease, unspecified (I73.9) Peripheral vascular disease, unspecified Type 2 diabetes mellitus with hyperglycemia, without long-term current use of insulin ([facility])- Primary Essential hypertension, benign ([facility]) Essential hypertension, benign Chronic diastolic heart failure ([facility]) Chronic diastolic heart failure Chronic obstructive pulmonary disease, unspecified COPD type ([facility]) DDD (degenerative disc disease), lumbar Degeneration of lumbar or lumbosacral intervertebral disc Primary osteoarthritis of right hip Body mass index (BMI) 35.0-35.9, adult Dysuria- Primary Acute prostatitis Pyuria Other nonspecific finding on examination of urine Medicare annual wellness visit, subsequent- Primary Type 2 diabetes mellitus with hyperglycemia, without long-term current use of insulin ([facility]) Essential hypertension, benign ([facility]) Essential hypertension, benign Class 2 severe obesity due to excess calories with serious comorbidity and body mass index (BMI) of37.0 to 37.9 in adult ([facility]) Chronic obstructive pulmonary disease with acute exacerbation ([facility])- Primary Chronic hypoxic respiratory failure ([facility]) Class 2 severe obesity due to excess calories with serious comorbidity and body mass index (BMI) of36.0 to 36.9 in adult ([facility]) Essential hypertension, benign ([facility]) Essential hypertension, benign Type 2 diabetes mellitus with hyperglycemia, without long-term current use of insulin ([facility])- Primary Essential hypertension, benign ([facility]) Essential hypertension, benign Chronic diastolic heart failure ([facility]) Chronic diastolic heart failure Primary osteoarthritis of right hip Degeneration of intervertebral disc of lumbar region with discogenic back pain Chronic obstructive pulmonary disease with acute exacerbation ([facility]) Peripheral vascular disease, unspecified ([facility]) Peripheral vascular disease, unspecified Class 2 severe obesity due to excess calories with serious comorbidity and body mass index (BMI) of38.0 to 38.9 in adult ([facility]) Type 2 diabetes mellitus with other specified complication Male erectile dysfunction, unspecified Type 2 diabetes mellitus with diabetic peripheral angiopathy without gangrene ([facility]) Carpal tunnel syndrome, bilateral upper limbs Carpal tunnel syndrome documented in this encounter [facility] HealthcareEvaluation note* Diagnosis Type 2 diabetes [...] index (BMI) of37.0 to 37.9 in adult ([facility]) Chronic obstructive pulmonary disease with acute exacerbation (HCC)- Primary Chronic hypoxic respiratory failure (HCC) Class 2 severe obesity due to excess calories with serious comorbidity and body mass index (BMI) of36.0 to 36.9 in adult ([facility]) Essential hypertension, benign Essential hypertension, benign [...] index (BMI) of38.0 to 38.9 in adult ([facility]) Type 2 diabetes mellitus with other specified complication (HCC) Male erectile dysfunction, unspecified Type 2 diabetes mellitus with diabetic peripheral angiopathy without gangrene (HCC) Degeneration of lumbar intervertebral disc Degeneration of lumbar or lumbosacral intervertebral disc documented in this encounter [facility] HealthcareEvaluation note* Diagnosis Type 2 diabetes [...] index (BMI) of37.0 to 37.9 in adult ([facility]) Chronic obstructive pulmonary disease with acute exacerbation (HCC)- Primary Chronic hypoxic respiratory failure (HCC) Class 2 severe obesity due to excess calories with serious comorbidity and body mass index (BMI) of36.0 to 36.9 in adult ([facility]) Essential hypertension, benign Essential hypertension, benign Type [...] index (BMI) of38.0 to 38.9 in adult ([facility]) Type 2 diabetes mellitus with other specified [...] index (BMI) of39.0 to 39.9 in adult ([facility]) Encounter for long-term (current) use of medications Encounter for long-term (current) use of other medications Screening PSA (prostate specific antigen) Special screening for malignant neoplasm of prostate Vitamin D insufficiency Dyslipidemia Other and unspecified hyperlipidemia documented in this encounter [facility] HealthcareEvaluation note* Diagnosis Type 2 diabetes [...] gangrene, without long-term current use of insulin ([facility]) Peripheral vascular disease, unspecified (I73.9) Peripheral [...] hyperglycemia, without long-term current use of insulin ([facility]) Essential hypertension, benign Essential hypertension, benign Class 2 severe obesity due to excess calories with serious comorbidity and body mass index (BMI) of37.0 to 37.9 in adult ([facility]) Chronic obstructive pulmonary disease with acute exacerbation (HCC)- Primary Chronic hypoxic respiratory failure (HCC) Class 2 severe obesity due to excess calories with serious comorbidity and body mass index (BMI) of36.0 to 36.9 in adult ([facility]) Essential hypertension, benign Essential hypertension, benign [...] index (BMI) of38.0 to 38.9 in adult ([facility]) Type 2 diabetes mellitus with other specified [...] index (BMI) of39.0 to 39.9 in adult ([facility]) Encounter for long-term (current) use of medications Encounter for long-term (current) use of other medications Screening PSA (prostate specific antigen) Special screening for malignant neoplasm of prostate Vitamin D insufficiency Dyslipidemia Other and unspecified hyperlipidemia Degeneration of lumbar intervertebral disc Degeneration of lumbar or lumbosacral intervertebral disc documented in this encounter [facility] HealthcareEvaluation note* Diagnosis Cardiac pacemaker in situ- Primary Chronotropic incompetence Other specified conduction disorder Sick sinus syndrome (Multi) Sinoatrial node dysfunction Essential hypertension, benign Pacemaker Cardiac pacemaker in situ Sinus bradycardia Other specified cardiac dysrhythmias Former smoker Personal history of tobacco use, presenting hazards to health BMI 38.0-38.9,adult documented in this encounter [facility] Work Phone: Evaluation note* Diagnosis [...] index (BMI) of37.0 to 37.9 in adult ([facility]) Chronic obstructive pulmonary disease with acute exacerbation (HCC)- Primary Chronic hypoxic respiratory failure (HCC) Class 2 severe obesity due to excess calories with serious comorbidity and body mass index (BMI) of36.0 to 36.9 in adult ([facility]) Essential hypertension, benign Essential hypertension, benign Type [...] index (BMI) of38.0 to 38.9 in adult ([facility]) Type 2 diabetes mellitus with other specified [...] index (BMI) of39.0 to 39.9 in adult ([facility]) Encounter for long-term (current) use of medications Encounter for long-term (current) use of other medications Screening PSA (prostate specific antigen) Special screening for malignant neoplasm of prostate Vitamin D insufficiency Dyslipidemia Other and unspecified hyperlipidemia Degeneration of lumbar intervertebral disc Degeneration of lumbar or lumbosacral intervertebral disc documented in this encounter [facility] HealthcareEvaluation note* Diagnosis Type 2 diabetes [...] index (BMI) of37.0 to 37.9 in adult ([facility]) Chronic obstructive pulmonary disease with acute exacerbation (HCC)- Primary Chronic hypoxic respiratory failure (HCC) Class 2 severe obesity due to excess calories with serious comorbidity and body mass index (BMI) of36.0 to 36.9 in adult ([facility]) Essential hypertension, benign Essential hypertension, benign Type [...] index (BMI) of38.0 to 38.9 in adult ([facility]) Type 2 diabetes mellitus with other [...] index (BMI) of39.0 to 39.9 in adult ([facility]) Encounter for long-term (current) use of medications [...] pacemaker in situ documented in this encounter [facility] Work Phone: History of Present illness Narrative* Patient is here for cardiovascular evaluation for second opinion in regard to documents resting sinus bradycardia. The patient is 56-year-old with history of tobacco use and COPD was evaluated recently due to shortness of breath and his stress test showed questionable inferior wall ischemia. This led to a cardiac evaluation in [place] and its not clear to me whether [...] evaluation * 5 follow-up in 6 [facility] 600 DO Work Phone: History of Present illness Narrative* Patient is here for cardiovascular evaluation for second opinion in regard to documents resting sinus bradycardia. The patient is 56-year-old with history of tobacco use and COPD was evaluated recently due to shortness of breath and his stress test showed questionable inferior wall ischemia. This led to a cardiac evaluation in [place] and its not clear to me whether [...] ischemic evaluation * 5 follow-up in 6 [facility] Work Phone: History of Present illness Narrative* Patient is here for cardiovascular evaluation for second opinion in regard to documents resting sinus bradycardia. The patient is 56-year-old with history of tobacco use and COPD was evaluated recently due to shortness of breath and his stress test showed questionable inferior wall ischemia. This led to a cardiac evaluation in [place] and its not clear to me whether [...] ischemic evaluation * 5 follow-up in 6 [facility] Work Phone: History of Present [...] ischemic evaluation. He underwent cardiac catheterization in [place] which showed no significant obstructive disease * [...] earlier if the need arise [facility] 600 DO Work Phone: InstructionsNot on filedocumented in this encounter [facility] N[facility]ative* Imaging (Routine) - Pending ReviewSpecialtyDiagnoses / ProceduresReferred By ContactReferred To Contact Cardiology Diagnoses Sinus bradycardia Sick sinus syndrome (Multi) Chronotropic incompetence MRI safe cardiac pacemaker in situ Procedures Cardiac Device Check - In Clinic Naima Wright, LYNN-SHE Phone: tel: fax: Referral IDStatusReasonStart DateExpiration DateVisits RequestedVisits [id number] Review Perform Procedure [facility] Work Phone: Reason for visit Narrative* Imaging (Routine) - Pending ReviewSpecialtyDiagnoses / ProceduresReferred By ContactReferred To ContactCardiology Diagnoses Cardiac pacemaker in situ Procedures Cardiac Device Check - Remote Amador Son MD [address] [place] [address] Phone: tel: fax: Referral IDStatusReasonStart DateExpiration DateVisits RequestedVisits [id number] Review Perform Procedure [facility] Work Phone: Reason for visit Narrative* Imaging (Routine) - Pending ReviewSpecialtyDiagnoses / ProceduresReferred By ContactReferred To ContactCardiology Diagnoses Cardiac pacemaker in situ Procedures Cardiac Device Check - In Clinic Amador Son MD [address] [place] [address] Phone: tel: fax: Referral IDStatusReasonStart DateExpiration DateVisits RequestedVisits [id number] Review Perform Procedure [facility] Work Phone: Reason for visit Narrative* Imaging (Routine) - Pending ReviewSpecialtyDiagnoses / ProceduresReferred By ContactReferred To ContactCardiology Diagnoses Cardiac pacemaker in situ Procedures Cardiac Device Check - Remote Amador Son MD [address] [place] [address] Phone: tel: fax: Referral IDStatusReasonStart DateExpiration DateVisits RequestedVisits [id number] Review Perform Procedure [facility] Work Phone: Summary Purpose Family [...] COMPL SPEC&COLR D Amador Son MD [address] [address] Referral IDStatusReasonStorlando DateExpiration DateVisits RequestedVisits [id number] Review Perform Procedure /[id number] / ProceduresReferred By ContactReferred To Contact Diagnoses Sinus bradycardia Establishing care with new doctor, encounter for Procedures ECG 12 lead (Clinic Performed) Amador Son MD [address] [address] Referral IDStatusReasonStart DateExpiration DateVisits RequestedVisits [id number]/15/20243/299393QknodckjmVgulckita / Procedures Referred By ContactReferred To ContactRadiology Diagnoses Pacemaker Procedures XR chest 2 views Ana M Kumari, [employer] MACHINE OFFBEARER-POLITICAL THEORY PROFESSOR [address] [facility], [address] [address] Referral IDStatusReasonStart DateExpiration DateVisits RequestedVisits [id number] Perform Procedure [id number] / ProceduresReferred By ContactReferred To ContactCardiology Diagnoses Pacemaker Procedures Cardiac Device Check - In Clinic Ana M Kumari, [employer] MACHINE OFFBEARER-POLITICAL THEORY PROFESSOR [address] [facility], [address] [address] Referral IDStatusReasonStart DateExpiration DateVisits RequestedVisits [id number] Review Perform Procedure [id number] / ProceduresReferred By ContactReferred To ContactCardiology Diagnoses Localized swelling on left hand S/P placement of cardiac pacemaker Procedures Vascular US upper extremity venous duplex left Naima Wright, [facility] [address] [facility], [address] [address] Referral IDStatusReasonStart DateExpiration DateVisits RequestedVisits [id number] Perform Procedure /[id number] / ProceduresReferred By ContactReferred To ContactCardiology Diagnoses Cardiac pacemaker in situ Sinoatrial node dysfunction (Multi) Procedures Cardiac Device Check - Remote Amador Son MD [address] [address] Referral IDStatusReasonStart DateExpiration DateVisits RequestedVisits [id number] Review Perform Procedure /[id number] / ProceduresReferred By ContactReferred To ContactCardiology Diagnoses Sinus bradycardia Sick sinus syndrome (Multi) Chronotropic incompetence MRI safe cardiac pacemaker in situ Procedures Cardiac Device Check - In Clinic Naima Wright APRN-POLITICAL THEORY PROFESSOR [address] [address] Referral IDStatusReasonStart DateExpiration DateVisits RequestedVisits [id number] Review Perform Procedure [id number] / ProceduresReferred By ContactReferred To ContactCardiology Diagnoses Sick sinus syndrome (Multi) MRI safe cardiac pacemaker in situ Procedures Follow Up In Cardiology Naima Wright APRN-POLITICAL THEORY PROFESSOR [address] [facility], [address] [address] Amador Son MD [address] [place] [address] Referral IDStatusReasonStart DateExpiration DateVisits RequestedVisits [id number]/3/20247/3/945289IimalcwicNlingwsdg / Procedures Referred By ContactReferred To Contact Diagnoses Sinus bradycardia Procedures ECG 12 lead (Clinic Performed) Naima Wright APRN-POLITICAL THEORY PROFESSOR [address] [address] Referral IDStatusReasonStart DateExpiration DateVisits RequestedVisits [id number]/3/20247/3/442665LyxhuvpisWbcsnrybe / Procedures Referred By ContactReferred To Contact Diagnoses Claudication ([facility]) Procedures Vas art doppler lwr bilat mult lev/PVR Roc Ramsey DO [address] [place] [address] Referral IDStatusReasonStart DateExpiration DateVisits RequestedVisits [id number] Review Chief Complaint and Reason for Visit [...] section and content) DATE CREATED AUTHOR 03/06/2021 [facility] DATE CREATED AUTHOR AUTHOR'S ORGANIZ ATION 03/12/2021 [facility] DATE CREATED AUTHOR AUTHOR'S ORGANIZ ATION 02/16/2022 [facility] DATE CREATED AUTHOR AUTHOR'S ORGANIZ ATION 07/16/2022 [facility] DATE CREATED AUTHOR AUTHOR'S ORGANIZ ATION 07/16/2022 [employer] DATE CREATED AUTHOR AUTHOR'S ORGANIZ ATION 09/17/2022 [facility] DATE CREATED AUTHOR AUTHOR'S ORGANIZ ATION 04/03/2024 [facility] DATE CREATED AUTHOR AUTHOR'S ORGANIZ ATION 11/16/2024 [facility] DATE CREATED AUTHOR AUTHOR'S ORGANIZ ATION 12/24/2024 [facility] DATE CREATED AUTHOR AUTHOR'S ORGANIZ ATION 02/17/2025 [facility] DATE CREATED AUTHOR AUTHOR'S ORGANIZ ATION 03/03/2025 [facility] DATE CREATED AUTHOR AUTHOR'S ORGANIZ ATION 03/10/2025 [facility] Reason for Visit (unrecogniz ed section and content) ReasonCommentsNew Patient VisitPt is here today as a new patient from Dr. HdzpecialtyDiagnoses / ProceduresReferred By ContactReferred To Contact Cardiology Diagnoses Sinus bradycardia Valentino Ty MD [address] [address] Amador Son MD [address] [facility], [address] [address] Referral IDStatusReasonStart DateExpiration DateVisits RequestedVisits [id number] Specialty Services Required [id number] / ProceduresReferred By ContactReferred To Contact Diagnoses Sinus bradycardia Chronotropic incompetence Sick sinus syndrome (CMS/HCC) Other fatigue Sinus bradycardia [R00.1] Chronotropic incompetence [I45.89] Sick sinus syndrome (CMS/HCC) [I49.5] Other fatigue [R53.83] Procedures SC INS NEW/RPLCMT PRM PM W/TRANSV ELTRD ATRIAL&VENT PPM IMPLANT DUAL Amador Son MD 254 [facility] [address] [place] [address] [facility] [facility] [address] [place] [address] Referral IDStatusReasonSaint Joseph DateExpiration DateVisits RequestedVisits [id number] CheckPatient is having swelling in his right handSpecialtyDiagnoses / ProceduresReferred By ContactReferred To Contact Cardiology Diagnoses Localized swelling on left hand S/P placement of cardiac pacemaker Procedures Vascular US upper extremity venous duplex left Yusuf-Naima Rodriguez E, [employer] B[employer] MACHINE OFFBEARER-POLITICAL THEORY PROFESSOR [address] [facility], [facility] [address] [place] [address] Referral IDStatusReasonSaint Joseph DateExpiration DateVisits RequestedVisits [id number] Perform Procedure /[id number] / ProceduresReferred By ContactReferred To ContactCardiology Diagnoses Cardiac pacemaker in situ Sinoatrial node dysfunction (Multi) Procedures Cardiac Device Check - Remote Amador Son MD [address] [place] [address] [address] [place] [address] Referral IDStatusReasonStart DateExpiration DateVisits RequestedVisits [id number] Review Perform Procedure 1ReasonOnset DateCommentsMed Hkdrbl714ReasonOnset Date CommentsMed Imwdnr5103/30/2024easonCommentsFollow-upPt is here today following up with device checkSpecialtyDiagnoses / ProceduresReferred By ContactReferred To Contact Diagnoses Sinus bradycardia Procedures ECG 12 lead (Clinic Performed) Naima Wright, [facility] [address] [facility], [address] [address] Referral IDStatusReasonStart DateExpiration DateVisits RequestedVisits [id number]/3/20247/090561YnpkyooarSpduargqq / Procedures Referred By ContactReferred To ContactCardiology Diagnoses Pacemaker Procedures Cardiac Device Check - In Clinic Ana M Kumari, [facility] [address] [address] Referral IDStatusReasonStart DateExpiration DateVisits RequestedVisits [id number] Review Perform Procedure [id number] / ProceduresReferred By ContactReferred To ContactRadiology Diagnoses Pacemaker Procedures XR chest 2 views Ana M Kumari, [facility] [address] [facility], [address] [address] Referral IDStatusReasonStart DateExpiration DateVisits RequestedVisits [id number] Perform Procedure 202511ReasonCommentsMedicare Annual Wellness Visit Subsequent WellnessReasonOnset DateCommentsMed Qyauhz914ReasonCommentsFollow-up3 m ReasonOnset DateCommentsMed Hmmhts944ReasonCommentsMed RefillReason CommentsUTIReasonOnset DateCommentsMed Okeiro4904/27/2024[facility] after 6 months with device checkSpecialtyDiagnoses / ProceduresReferred By ContactReferred To ContactCardiology Diagnoses Sick sinus syndrome (Multi) MRI safe cardiac pacemaker in situ Procedures Follow Up In Cardiology Naima Wright, [employer] B[employer]ING MACHINE OFFBEARER-POLITICAL THEORY PROFESSOR Phone: tel: fax: Amador Son MD [address] [place] [address] Phone: tel: fax: Referral IDStatusReasonStart DateExpiration DateVisits RequestedVisits [id number]/3/20247/3/440083VmadohScndm DateCommentsMed Refill 05/28/2024ReasonOnset DateCommentsMed Qbxjoc4205/29/2024[facility] f/upReasonThomas [place]ille [address]zi7mDhjxncldvElsofgbuw / ProceduresReferred By ContactReferred To ContactCardiology Diagnoses Chronotropic incompetence Procedures Follow Up In Cardiology Valentino Ty MD [address] [place] [address] Phone: tel: fax: Valentino Ty MD [address] [place], [place] [address] Phone: tel: fax: Referral IDStatGriffin [facility] Hospital – Normanasonart DateExpiration DateVisits RequestedVisits [id number]/25/20247/25/588571VpqbvwDzrbipkxEbaebg-kuCNQQLVT INGUINAL HERNIA, RIGHTReasonOnset DateCommentsMed Uldgfg9306/26/2024ReasonOnset DateCommentsMed Clqgjj4608/22/2024ReasonOnset DateCommentsMed Mlqwhq8309/19/2024 ReasonOnset DateCommentsMed Sfszfl1110/18/2024ReasonCommentsFollow-sf3KZxo Injury SORE ON RIGHT LEGReasonOnset DateCommentsMed Wyxklf1111/15/2024ReasonComments Follow-upPatient is present for 6 month follow up with device check for Cardiac pacemaker in situ.ReasonOnset DateCommentsMed Ptbber9612/17/2024ReasonComments Follow-upNasal Congestion Care Teams (unrecognized sec tion and content) Team MemberRelationshipSpecialtyStart DateEnd Date Ishmael Simon MD [address] [place] [address] PCP - GeneralFamily Medicine06/29/23Team MemberRelationshipSpecialtyStart DateEnd Date Ishmael Simon MD [address] [place] [address] PCP - Generalmily Medicine06/29/23Team MemberRelationshipSpecialtyStart DateEnd Date Ishmael Simon MD [address] [place] [address] PCP - GeneralFamily Medicine06/29/23Team MemberRelationshipSpecialtyStart DateEnd Date Ishmael Simon MD [address] [place] [address] PCP - GeneralFamily Medicine06/29/23Team MemberRelationshipSpecialtyStart DateEnd Date Ishmael Simon MD PCP - GeneralFamily Medicine06/29/23Team MemberRelationshipSpecialtyStart DateEnd Date Ishmael Simon MD [address] [place] [address] PCP - GeneralFamily Medicine06/29/23 Naima Wright EDGE BANDING MACHINE OFFBEARER-POLITICAL THEORY PROFESSOR [address] [facility], [facility] [address] [place] [address] Nurse PractitionerCardiology11/07/23Team MemberRelationshipSpecialtyStart DateEnd Date Ishmael Simon MD [address] [place] [address] PCP - GeneralFamily Medicine10/10/23 Team Status: Active [...] Ishmael Simon MD [address] [place] [address] PCP - GeneralFamily Medicine06/29/23 Naima Wright, [employer] MACHINE OFFBEARER-POLITICAL THEORY PROFESSOR [address] [facility], [facility] [address] [place] [address] Nurse PractitionerCardiology11/07/23Team MemberRelationshipSpecialtyStart DateEnd Date Ishmael Simon MD [address] [place] [address] PCP - GeneralFamily Medicine06/29/23 Naima Wright APRN-POLITICAL THEORY PROFESSOR [address] [facility], Ad[facility] [place] [address] Nurse PractitionerCardiology11/07/23Team MemberRelationshipSpecialtyStart DateEnd Date Ishmael Simon MD [address] [place] [address] PCP - GeneralFamily Medicine10/10/23Team MemberRelationshipSpecialtyStart DateEnd Date Ishmael Simon MD [address] [place] [address] PCP - GeneralFamily Medicine10/10/23Team MemberRelationshipSpecialtyStart DateEnd Date Ishmael Simon MD [address] [place] [address] PCP - GeneralFamily Medicine10/10/23Team MemberRelationshipSpecialtyStart DateEnd Date Ishmael Simon MD [address] [place] [address] PCP - GeneralFamily Medicine06/29/23 Naima Wright EDGE BANDING MACHINE OFFBEARER-POLITICAL THEORY PROFESSOR [address] [facility], [facility] [address] [place] [address] Nurse PractitionerCardiology11/07/23Team MemberRelationshipSpecialtyStart DateEnd Date Ishmael Simon MD [address] [place] [address] PCP - GeneralFamily Medicine10/10/23Team MemberRelationshipSpecialtyStart DateEnd Date Ishmael Simon MD [address] [place] [address] PCP - GeneralFamily Medicine10/10/23Team MemberRelationshipSpecialtyStart DateEnd Date Ishmael Simon MD [address] [place] [address] PCP - GeneralFamily Medicine10/10/23Team MemberRelationshipSpecialtyStart DateEnd Date Ishmael Simon MD [address] [place] [address] PCP - GeneralFamily Medicine10/10/23Team MemberRelationshipSpecialtyStart DateEnd Date Ishmael Simon MD [address] [place] [address] PCP - GeneralFamily Medicine10/10/23Team MemberRelationshipSpecialtyStart DateEnd Date Ishmael Simon MD [address] [place] [address] PCP - GeneralFamily Medicine10/10/23Team MemberRelationshipSpecialtyStart DateEnd Date Ishmael Simon MD [address] [place] [address] PCP - GeneralFamily Medicine10/10/23Team MemberRelationshipSpecialtyStart DateEnd Date Ishmael Simon MD [address] [place] [address] PCP - GeneralFamily Medicine10/10/23Team MemberRelationshipSpecialtyStart DateEnd Date Ishmael Simon MD [address] [place] [address] PCP - GeneralFamily Medicine06/29/23 Amador Son MD [address] [facility], [facility] [address] [place] [address] CardiologistElectrophysiology05/17/24Team MemberRelationshipSpecialtyStart DateEnd Date Ishmael Simon MD [address] [place] [address] PCP - Generalmily Medicine06/29/23 Amador Son MD [address] [facility], [facility] [address] [place] [address] CardiologistElectrophysiology05/17/24Team MemberRelationshipSpecialtyStart DateEnd Date Ishmael Simon MD [address] [place] [address] PCP - GeneralFamily Medicine10/10/23Team MemberRelationshipSpecialtyStart DateEnd Date Ishmael Simon MD [address] [place] [address] PCP - GeneralFamily Medicine10/10/23Team MemberRelationshipSpecialtyStart DateEnd Date Ishmael Simon MD [address] [place] [address] PCP - GeneralFamily Medicine10/10/23Team MemberRelationshipSpecialtyStart DateEnd Date Ishmael Simon MD [address] [place] [address] PCP - GeneralFamily Medicine10/10/23Team MemberRelationshipSpecialtyStart DateEnd Date Ishmael Simon MD [address] [place] [address] PCP - GeneralFamily Medicine06/29/23 Amador Son MD [address] [facility] Office [facility]ldg, Ad[address] [place] [address] CardiologistElectrophysiology05/17/24Team MemberRelationshipSpecialtyStart DateEnd Date Ishmael Simon MD [address] [place] [address] PCP - GeneralFamily Medicine10/10/23Team MemberRelationshipSpecialtyStart DateEnd Date Ishmael Simon MD [address] [place] [address] PCP - GeneralFamily Medicine08/16/19Team MemberRelationshipSpecialtyStart DateEnd Date Ishmael Simon MD [address] [place] [address] PCP - GeneralFamily Medicine08/16/19Team MemberRelationshipSpecialtyStart DateEnd Date Ishmael Simon MD PCP - GeneralFamily Medicine08/16/19Team MemberRelationshipSpecialtyStart DateEnd Date Ishmael Simon MD [address] [place] [address] PCP - GeneralFamily Medicine10/10/23Team MemberRelationshipSpecialtyStart DateEnd Date Ishmael Simon MD [address] [place] [address] PCP - GeneralFamily Medicine10/10/23Team MemberRelationshipSpecialtyStart DateEnd Date Ishmael Simon MD [address] [place] [address] PCP - GeneralFamily Medicine10/10/23Team MemberRelationshipSpecialtyStart DateEnd Date Ishmael Simon MD [address] [place] [address] PCP - GeneralFamily Medicine10/10/23Team MemberRelationshipSpecialtyStart DateEnd Date Ishmael Simon MD [address] [place] [address] PCP - GeneralFamily Medicine06/29/23 Amador Son MD [address] [facility] [address], [address] [place] [address] CardiologistElectrophysiology05/17/24Team MemberRelationshipSpecialtyStart DateEnd Date Ishmael Simon MD [address] [place] [address] PCP - GeneralFamily Medicine10/10/23Team MemberRelationshipSpecialtyStart DateEnd Date Ishmael Simon MD [address] [place] [address] PCP - GeneralFamily Medicine10/10/23Team MemberRelationshipSpecialtyStart DateEnd Date Ishmael Simon MD [address] [place] [address] PCP - GeneralFamily Medicine10/10/23Team MemberRelationshipSpecialtyStart DateEnd Date Ishmael Simon MD [address] [place] [address] PCP - GeneralFamily Medicine10/10/23Team MemberRelationshipSpecialtyStart DateEnd Date Ishmael Simon MD [address] [place] [address] PCP - GeneralFamily Medicine06/29/23 Amador Son MD [address] [facility] [address], [address] [place] [address] CardiologistElectrophysiology05/17/24Team MemberRelationshipSpecialtyStart DateEnd Date Ishmael Simon MD [address] [place] [address] PCP - GeneralFamily Medicine10/10/23Team MemberRelationshipSpecialtyStart DateEnd Date Ishmael Simon MD [address] [place] [address] PCP - GeneralFamily Medicine10/10/23Team MemberRelationshipSpecialtyStart DateEnd Date Ishmael Simon MD [address] [place] [address] PCP - GeneralFamily Medicine06/29/23 Amador Son MD [address] [facility] Office [address], [address], [place] [address] CardiologistElectrophysiology05/17/24Team MemberRelationshipSpecialtyStart DateEnd Date Ishmael Simon MD PCP - GeneralFamily Medicine10/10/23 Ishmael Simon MD [address] [place] [address] PCP - Human06/09/23Team MemberRelationshipSpecialtyStart DateEnd Date Ishmael Simon MD PCP - GeneralFamily Hxnxpuow94/5/ Ishmael Simon MD PCP - GeneralFamily Medicine10/10/23 Ishmael Simon MD [address] [place] [address] PCP - [employer]2/06/01 Scheduled Active and Recently [...] 1230, Preprocedure, 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 [employer] [facility]. provides no warranty or guarantee of the accuracy or completeness of information in this document.
--- NOTE | 2025-05-06 11:19 | PM.CN ---
Consult Note: HPI Data of Consult Patient: known to practice within the last 3 years Consult date: 05/06/25 Requesting Physician: Jong Reyes MD Primary Care Provider: Ishmael Watts MD Consult Narrative Reason for consult: low back, tailbone pain Narrative: 60yom who presents for assessment. notes ongoing tailbone pain, thigh pain that is worsened with ambulation. denies any issues with incision sites. continues to use percocet as needed. cc:: CC: Jong Reyes MD Review of Systems ROS Status of ROS 10 or more systems reviewed and unremarkable except as noted in history and below [facility] Medical History ROCHA (dyspnea on exertion) ?R06.09 - Other forms of dyspnea (ICD-10) Extremity edema ?R60.0 - Localized edema (ICD-10) Prediabetes ?R73.03 - Prediabetes (ICD-10) Erectile dysfunction ?N52.9 - Male erectile dysfunction, unspecified (ICD-10) Shoulder pain ?M25.519 - Pain in unspecified shoulder (ICD-10) Osteoarthritis ?M19.90 - Unspecified osteoarthritis, unspecified site (ICD-10) Congestive heart failure ?I50.9 - Heart failure, unspecified (ICD-10) Arrhythmia ?I49.9 - Cardiac arrhythmia, unspecified (ICD-10) Chronotropic incompetence ?I45.89 - Other specified conduction disorders (ICD-10) Bradycardia ?R00.1 - Bradycardia, unspecified (ICD-10) Chronic low back pain ?M54.50 - Low back pain, unspecified (ICD-10) ?G89.29 - Other chronic pain (ICD-10) Lumbar stenosis with neurogenic claudication ?M48.062 - Spinal stenosis, lumbar region with neurogenic claudication (ICD-10) COPD exacerbation ?J44.1 - Chronic obstructive pulmonary disease with (acute) exacerbation (ICD-10) Lumbar degenerative disc disease ?M51.369 - Other intervertebral disc degeneration, lumbar region without mention of lumbar back pain or lower extremity pain (ICD-10) Right shoulder pain ?M25.511 - Pain in right shoulder (ICD-10) Obesity ?E66.9 - Obesity, unspecified (ICD-10) Kidney failure ?N19 - Unspecified kidney failure (ICD-10) Smoker ?F17.200 - Nicotine dependence, unspecified, uncomplicated (ICD-10) COPD (chronic obstructive pulmonary disease) ?J44.9 - Chronic obstructive pulmonary disease, unspecified (ICD-10) Hypertension ?I10 - Essential (primary) hypertension (ICD-10) Surgical History S/P placement of nerve stimulator (03/25/25) ?Z96.82 - Presence of neurostimulator (ICD-10) History of colonoscopy ?Z98.890 - Other specified postprocedural states (ICD-10) H/O hernia repair ?Z98.890 - Other specified postprocedural states (ICD-10) ?Z87.19 - Personal history of other diseases of the digestive system (ICD-10) History of removal of cyst ?Z98.890 - Other specified postprocedural states (ICD-10) H/O elbow surgery ?Z98.890 - Other specified postprocedural states (ICD-10) S/P bladder repair ?Z98.890 - Other specified postprocedural states (ICD-10) S/P total hip arthroplasty ?Z96.649 - Presence of unspecified artificial hip joint (ICD-10) S/P cardiac pacemaker procedure ?Z95.0 - Presence of cardiac pacemaker (ICD-10) Family History Mother Family history of cancer Family history of COPD (chronic obstructive pulmonary disease) Other Chronic mental illness Social History Within the past year, how often did you have a drink containing alcohol: never Score interpretation: A score less than 4 is consistent with normal alcohol consumption. Smoking status: Current every day smoker What tobacco products do you use: cigarettes Cigarettes per day: 15 Years smoked: 48 Smoking pack-years: 36.00 Non-prescribed substance use: cannabis (any form) Highest level of school completed/degree received: high school graduate Little interest or pleasure in doing things: not at all Feeling down, depressed, or hopeless: not at all Meds Home Medications and Allergies Home Medications ?Medication ?Instructions ?Recorded ?Confirmed ?Type albuterol 90 mcg/actuation aerosol 90 mcg inhalation .Q6HRS PRN 10/14/22 04/22/25 History inhaler shortness of breath or wheezing fluticasone fur. 100 mcg-umeclid 1 inh inhalation DAILY 10/14/22 04/22/25 History 62.5 mcg-vilant 25 mcg inhalat.powder (Trelegy Ellipta) furosemide 40 mg tablet 40 mg PO BID 10/14/22 04/22/25 History montelukast 10 mg tablet 10 mg PO DAILY 10/14/22 04/22/25 History nabumetone 500 mg tablet 500 mg PO BID 10/14/22 04/22/25 History omeprazole 40 mg capsule,delayed 40 mg PO DAILY 10/14/22 04/22/25 History release oxycodone-acetaminophen 7.5 mg-325 1 tab PO Q6H 10/14/22 04/22/25 History mg tablet spironolactone 100 mg tablet 100 mg PO DAILY 10/14/22 04/22/25 History cetirizine 10 mg tablet (24Hour 10 mg PO DAILY PRN allergy symptoms 04/16/24 04/22/25 History Allergy) baclofen 10 mg tablet See Rx Instructions .Route 07/12/24 04/22/25 Rx .COMPLEX PRN muscle spasm #60 tabs aspirin 81 mg tablet,delayed 81 mg PO DAILY 03/18/25 04/22/25 History release (Adult Aspirin Regimen) rosuvastatin 10 mg tablet 10 mg PO DAILY 03/18/25 04/22/25 History topiramate 50 mg tablet 50 mg PO QPM 03/18/25 04/22/25 History baclofen 10 mg tablet 10 mg PO BID #60 tabs 04/10/25 04/22/25 Rx cephalexin 500 mg capsule 500 mg PO TID 7 days #21 caps 04/16/25 Rx Allergies Allergy/AdvReac Type Severity Reaction Status Date / Time No Known Drug Allergies Allergy Verified 04/22/25 07:28 Exam Narrative Exam Narrative: Psych-alert and oriented x 3. Attentive and appropriate, constitutionally normal, displays normal mood and affect per situation.? There are no obvious deficits in memory, reasoning, or intellect.? Skin-no obvious rashes, bruising, erythema noted to the patient's area of pain. Extremities- extremities are warm with minimal edema and palpable pulses. Lumbar-no significant tenderness to palpation noted in the lumbar spine and paraspinal musculature.? Pain is elicited with extension, and lateral rotation of the lumbar spine. Range of motion is slightly diminished with these motions due to pain. Coordination remains intact.? Gait remains non-antalgic. Assessment and Plan Assessment and Plan (1) Lumbar stenosis with neurogenic claudication: Plan 60yom who presents for assessment. doing fairly well after recent scs implant, though notes some residual pain that i believe will be covered after a scs setting adjustment. representatives from [employer] were unfortunately unable to make today's appointment to adjust settings, so will have him set up appt with them to have this done. he is in agreement. meds reviewed, will continue percocet as before for now. follow up in 4 weeks.
== END 2025-05-06 10:26 | disposition home or self-care (01) ==
LOC: PM 10:25
PROVIDERS: PCP Family Medicine; Visit Provider Anesthesiology
DX: M48.062 Spinal stenosis, lumbar region with neurogenic claudication (principal)
CPT/HCPCS: G0463